=== PATIENT | male | born 1955 | race Caucasian/White ===

== ENCOUNTER 2019-04-05 06:35 | Outpatient (RCR) | payer MEDICARE, OTHER, SELFPAY ==
[2019-02-01 12:39] LABS: Basophils Percent Auto 0.4 % (0.2-1.2); Eosinophils Absolute Auto 0.1 K/mm3 (0-0.3); Eosinophils Percent Auto 1.7 % (0-4.4); Hematocrit 27.9 % (42.0-52.0); Hemoglobin 8.5 g/dL (14.0-18.0); Immature Granulocyte Absolute 0.04 K/mm3 (0.00-0.031); Immature Granulocyte Percent A 0.7 % (0-0.5); Lymphocytes Absolute Auto 0.48 K/mm3 (0.9-3.2); Lymphocytes Percent Auto 8.8 % (18.3-44.2); Mean Corpuscular HGB Conc 30.5 g/dl (32-36); Mean Corpuscular Hemoglobin 28.5 pg (26-34); Mean Corpuscular Volume 93.6 fl (80-100); Mean Platelet Volume 10.1 fl (7.4-10.4); Monocytes Absolute Auto 0.4 K/mm3 (0.1-0.6); Monocytes Percent Auto 8.1 % (2.6-8.5); Neutrophils Absolute Auto 4.4 K/mm3 (1.3-6.7); Neutrophils Percent Auto 80.3 % (45.5-73.1); Platelet Count Result 181 k/mm3 (150-375); Red Blood Count 2.98 M/mm3 (4.6-6.20); Red Cell Distribution Width 14.1 % (11.5-14.5); White Blood Count 5.4 K/mm3 (4.5-10.0)
[2019-02-01 12:56] LABS: Alanine Aminotransferase 11 U/L (4-50); Albumin Level 4.1 g/dL (3.5-5.1); Alkaline Phosphatase 63 U/L (38-126); Aspartate Amino Transferase 16 U/L (17-59); Bilirubin,Total 0.5 mg/dL (0.2-1.3); Blood Urea Nitrogen 27 mg/dL (9-20); Calcium 7.3 mg/dL (8.4-10.2); Carbon Dioxide 25 mmol/L (22-30); Chloride 102 mmol/L (98-107); Estimated Glomerular Filt Rate 32; Glucose 71 mg/dL (75-110); Sodium 139 mmol/L (137-145)
[2019-03-01 08:27] LABS: Basophils Percent Auto 0.3 % (0.2-1.2); Eosinophils Absolute Auto 0.1 K/mm3 (0-0.3); Eosinophils Percent Auto 1.7 % (0-4.4); Hematocrit 28.9 % (42.0-52.0); Hemoglobin 8.6 g/dL (14.0-18.0); Immature Granulocyte Absolute 0.06 K/mm3 (0.00-0.031); Lymphocytes Absolute Auto 0.51 K/mm3 (0.9-3.2); Lymphocytes Percent Auto 8.7 % (18.3-44.2); Mean Corpuscular HGB Conc 29.8 g/dl (32-36); Mean Corpuscular Hemoglobin 28.2 pg (26-34); Mean Corpuscular Volume 94.8 fl (80-100); Mean Platelet Volume 10.3 fl (7.4-10.4); Monocytes Absolute Auto 0.5 K/mm3 (0.1-0.6); Monocytes Percent Auto 7.8 % (2.6-8.5); Neutrophils Absolute Auto 4.7 K/mm3 (1.3-6.7); Neutrophils Percent Auto 80.5 % (45.5-73.1); Platelet Count Result 170 k/mm3 (150-375); Red Blood Count 3.05 M/mm3 (4.6-6.20); Red Cell Distribution Width 14.6 % (11.5-14.5); White Blood Count 5.9 K/mm3 (4.5-10.0)
[2019-03-01 08:46] LABS: Alanine Aminotransferase 11 U/L (4-50); Albumin Level 3.9 g/dL (3.5-5.1); Alkaline Phosphatase 68 U/L (38-126); Aspartate Amino Transferase 15 U/L (17-59); Bilirubin,Total 0.5 mg/dL (0.2-1.3); Blood Urea Nitrogen 29 mg/dL (9-20); Calcium 7.4 mg/dL (8.4-10.2); Carbon Dioxide 24 mmol/L (22-30); Chloride 104 mmol/L (98-107); Estimated Glomerular Filt Rate 26; Glucose 96 mg/dL (75-110); Sodium 140 mmol/L (137-145)
[2019-03-01 08:55] LABS: Anisocytosis 1+ (NORMAL); Platelet Estimate Adequate (Adequate); Tear Drop Cells 1+ (NORMAL)
[2019-04-05 08:11] LABS: Basophils Percent Auto 0.2 % (0.2-1.2); Eosinophils Absolute Auto 0.1 K/mm3 (0-0.3); Eosinophils Percent Auto 1.4 % (0-4.4); Hematocrit 28.3 % (42.0-52.0); Hemoglobin 8.6 g/dL (14.0-18.0); Immature Granulocyte Absolute 0.02 K/mm3 (0.00-0.031); Immature Granulocyte Percent A 0.5 % (0-0.5); Lymphocytes Absolute Auto 0.33 K/mm3 (0.9-3.2); Mean Corpuscular HGB Conc 30.4 g/dl (32-36); Mean Corpuscular Hemoglobin 27.9 pg (26-34); Mean Corpuscular Volume 91.9 fl (80-100); Mean Platelet Volume 10.4 fl (7.4-10.4); Monocytes Absolute Auto 0.4 K/mm3 (0.1-0.6); Monocytes Percent Auto 9.4 % (2.6-8.5); Neutrophils Absolute Auto 3.3 K/mm3 (1.3-6.7); Neutrophils Percent Auto 80.5 % (45.5-73.1); Platelet Count Result 165 k/mm3 (150-375); Red Blood Count 3.08 M/mm3 (4.6-6.20); Red Cell Distribution Width 14.6 % (11.5-14.5); White Blood Count 4.1 K/mm3 (4.5-10.0)
[2019-04-05 08:20] LABS: Alanine Aminotransferase 12 U/L (4-50); Albumin Level 3.9 g/dL (3.5-5.1); Alkaline Phosphatase 77 U/L (38-126); Aspartate Amino Transferase 18 U/L (17-59); Bilirubin,Total 0.6 mg/dL (0.2-1.3); Blood Urea Nitrogen 28 mg/dL (9-20); Calcium 7.8 mg/dL (8.4-10.2); Carbon Dioxide 22 mmol/L (22-30); Chloride 102 mmol/L (98-107); Estimated Glomerular Filt Rate 30; Glucose 94 mg/dL (75-110); Potassium 4.1 mmol/L (3.4-5.0); Sodium 138 mmol/L (137-145)
== END 2019-05-02 23:59 | disposition home or self-care (01) ==
LOC: ANHLAB 06:35
PROVIDERS: PCP Internal Medicine; Visit Provider Internal Medicine
DX: D50.9 Iron deficiency anemia, unspecified (principal); D59.1 Other autoimmune hemolytic anemias; D75.81 Myelofibrosis; N18.4 Chronic kidney disease, stage 4 (severe)
CPT/HCPCS: 36415; 80053; 85025

== ENCOUNTER 2019-05-26 06:47 | Outpatient (CLI) | payer MEDICARE, OTHER, SELFPAY ==
[2019-05-26 07:40] LABS: Basophils Percent Auto 0.2 % (0.2-1.2); Eosinophils Absolute Auto 0.1 K/mm3 (0-0.3); Eosinophils Percent Auto 2.1 % (0-4.4); Hematocrit 25.2 % (42.0-52.0); Hemoglobin 7.7 g/dL (14.0-18.0); Immature Granulocyte Absolute 0.04 K/mm3 (0.00-0.031); Immature Granulocyte Percent A 0.6 % (0-0.5); Lymphocytes Absolute Auto 0.24 K/mm3 (0.9-3.2); Lymphocytes Percent Auto 3.8 % (18.3-44.2); Mean Corpuscular HGB Conc 30.6 g/dl (32-36); Mean Corpuscular Hemoglobin 27.6 pg (26-34); Mean Corpuscular Volume 90.3 fl (80-100); Mean Platelet Volume 10.7 fl (7.4-10.4); Monocytes Absolute Auto 0.5 K/mm3 (0.1-0.6); Monocytes Percent Auto 8.4 % (2.6-8.5); Neutrophils Absolute Auto 5.4 K/mm3 (1.3-6.7); Neutrophils Percent Auto 84.9 % (45.5-73.1); Platelet Count Result 163 k/mm3 (150-375); Red Blood Count 2.79 M/mm3 (4.6-6.20); Red Cell Distribution Width 15.2 % (11.5-14.5); White Blood Count 6.3 K/mm3 (4.5-10.0)
[2019-05-26 08:23] LABS: Iron 19 ug/dL (49-181)
[2019-05-26 08:32] LABS: Percent Iron Saturation 10 % (20-50)
== END 2019-05-26 06:48 | disposition home or self-care (01) ==
PROVIDERS: PCP Internal Medicine; Visit Provider Internal Medicine
DX: D50.1 Sideropenic dysphagia (principal); N18.3 Chronic kidney disease, stage 3 (moderate); D59.1 Other autoimmune hemolytic anemias
CPT/HCPCS: 36415; 82728; 83540; 83550; 85025

== ENCOUNTER 2019-05-27 06:44 | Emergency (ER) | payer MEDICARE, OTHER, SELFPAY ==
--- NOTE | ~2019-05-27 | XR_ITS ---
EXAMINATION: XR foot RT min 3V DATE: 05/27/2019 07:41 INDICATION: Right foot pain. TECHNIQUE: 4 views of right foot were obtained. COMPARISON: None. FINDINGS: Bone alignment is normal. No fracture. There is mild osteoarthritis of first metatarsophala ngeal joint and many of the interphalangeal joints and midfoot joints. There are enthesophytes at the posterior and plantar aspects of calcaneal tuberosity. IMPRESSION: 1. Mild polyarticular osteoarthritis. Reviewed, dictated and finalized at location A. 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
[2019-05-27 06:47] VITALS: BP 179/66; PULSE 77; RESP 12; TEMP 36.5; O2SAT 97
--- NOTE | 2019-05-27 07:15 | ED.GENADULT ---
HPI - General Adult General Chief complaint: Extremity Injury, Lower Stated complaint: pain to rt leg & hands Time Seen by Provider: 05/27/19 06:58 History of Present Illness HPI narrative: Painful rash to the bilateral hands for the past 3-4 days. worsening in severity. He has not tried anything for the rash. He was started on azathioprine about 1 month ago. No other recent exposures or new medications. Additionally he has pain in the bottom of the left foot for the past few days. Worst in the heal and ball of the foot. Made worse by bearing weight. He has neuropathy, this pain is different. No injury. Related Data Home Medications Medication Instructions Recorded Confirmed atorvastatin DAILY 05/27/19 furosemide 40 mg DAILY 05/27/19 05/27/19 gabapentin 300 mg PO 05/27/19 labetalol 200 PO BID 05/27/19 pantoprazole 40 mg PO DAILY 05/27/19 05/27/19 potassium chloride [Klor-Con M20] meq PO 05/27/19 Allergies Allergy/AdvReac Type Severity Reaction Status Date / Time No Known Allergies Allergy Verified 05/27/19 06:51 Review of Systems Review of Systems: All systems reviewed & are unremarkable except as noted in HPI and below Constitutional: Constitutional: Denies chills, Denies fever(s) and Denies weakness Cardiovascular: Cardiovascular: Denies chest pain Respiratory: Respiratory: Denies dyspnea Gastrointestinal: Gastrointestinal: Denies abdominal pain and Denies nausea Musculoskeletal: Musculoskeletal: Denies back pain Integumentary/Breasts: Skin/Breast: Reports rash Neurologic: Denies numbness and Denies weakness Hematologic/Lymphatic: Hematologic/Lymphatic: Denies easy bleeding and Denies easy bruising PMF Past Medical History Medical History (Updated 05/27/19 @ 12:53 by Eddie Aguirre MD) CKD (chronic kidney disease) Diabetes HTN (hypertension) Neuropathy, peripheral Exam Const: General: no acute distress and alert Nutritional Appearance: obese Orientation/consciousness: patient oriented x3 HENMT: Head: normal to inspection Resp: Effort & Inspection: normal respiratory effort Auscultation: clear to auscultation bilaterally Cardio: Rate: regular rate Rhythm: regular rhythm GI: GI Palp: Yes Soft to palpation and No Tenderness to palpation present (GI) Skin: Other: red papular rash to the bilateral hands including palms and soles. Neuro: General: patient oriented x3 and moves all extremities Speech: normal speech Extrem: Other: Tenderness over the entire sole of left foot Course Vital Signs Vital signs: Vital Signs Temperature 36.5 C 05/27/19 06:47 Pulse Rate 77 05/27/19 06:47 Respiratory Rate 12 05/27/19 06:47 Blood Pressure 179/66 H 05/27/19 06:47 Pulse Oximetry 97 05/27/19 06:47 Temperature 36.5 C 05/27/19 06:47 Pulse Rate 77 05/27/19 06:47 Respiratory Rate 12 05/27/19 06:47 Blood Pressure 179/66 H 05/27/19 06:47 Pulse Oximetry 97 05/27/19 06:47 Medical Decision Making MDM Narrative Medical decision making narrative: Rash is unlikely to be cellulitis of shingles due to the bilateral distribution. The most likely culprit is his azathioprine, but there is no way to prove this definitively. Case discussed with Dr. Thomson. Will plan to d/c this medication and start on short course of prednisone. Medical Records Medical records reviewed: Yes I reviewed the patient's medical records. Vital Signs Vital Signs: Vital Signs Temperature 36.5 C 05/27/19 06:47 Pulse Rate 77 05/27/19 06:47 Respiratory Rate 12 05/27/19 06:47 Blood Pressure 179/66 H 05/27/19 06:47 Pulse Oximetry 97 05/27/19 06:47 Temperature 36.5 C 05/27/19 06:47 Pulse Rate 77 05/27/19 06:47 Respiratory Rate 12 05/27/19 06:47 Blood Pressure 179/66 H 05/27/19 06:47 Pulse Oximetry 97 05/27/19 06:47 Discharge Plan Discharge Clinical Impression: Plantar fasciitis of right foot, Drug-induced skin rash Patient Disposition: Home
[2019-05-27] MEDS: predniSONE 20 MG TABLET 40 MG PO (07:52)
[2019-05-27] MEDS: TRAMADOL HCL 50 MG TABLET PO (09:40)
== END 2019-05-27 09:45 | disposition home or self-care (01) ==
PROVIDERS: Emergency Provider Emergency Medicine; PCP Internal Medicine
DX: M72.2 Plantar fascial fibromatosis (principal); T45.1X5A Adverse effect of antineoplastic and immunosuppressive drugs, initial encounter; E11.22 Type 2 diabetes mellitus with diabetic chronic kidney disease; I12.9 Hypertensive chronic kidney disease with stage 1 through stage 4 chronic kidney disease, or unspecified chronic kidney disease; N18.9 Chronic kidney disease, unspecified; E11.42 Type 2 diabetes mellitus with diabetic polyneuropathy; L27.0 Generalized skin eruption due to drugs and medicaments taken internally
CPT/HCPCS: 73630; 99283; A9270; J7512

== ENCOUNTER 2019-06-04 06:44 | Outpatient (RCR) | payer MEDICARE, OTHER, SELFPAY ==
[2019-05-03 10:11] LABS: Basophils Percent Auto 0.2 % (0.2-1.2); Eosinophils Absolute Auto 0.1 K/mm3 (0-0.3); Eosinophils Percent Auto 1.3 % (0-4.4); Hematocrit 27.7 % (42.0-52.0); Hemoglobin 8.4 g/dL (14.0-18.0); Immature Granulocyte Absolute 0.05 K/mm3 (0.00-0.031); Immature Granulocyte Percent A 0.8 % (0-0.5); Lymphocytes Absolute Auto 0.37 K/mm3 (0.9-3.2); Lymphocytes Percent Auto 6.2 % (18.3-44.2); Mean Corpuscular HGB Conc 30.3 g/dl (32-36); Mean Corpuscular Hemoglobin 27.5 pg (26-34); Mean Corpuscular Volume 90.8 fl (80-100); Mean Platelet Volume 10.6 fl (7.4-10.4); Monocytes Absolute Auto 0.5 K/mm3 (0.1-0.6); Monocytes Percent Auto 7.6 % (2.6-8.5); Neutrophils Percent Auto 83.9 % (45.5-73.1); Platelet Count Result 158 k/mm3 (150-375); Red Blood Count 3.05 M/mm3 (4.6-6.20); Red Cell Distribution Width 14.7 % (11.5-14.5); White Blood Count 5.9 K/mm3 (4.5-10.0)
[2019-05-03 10:18] LABS: Creatinine Urine 157.6 mg/dL; Total Protein Urine Random 14 mg/dL
[2019-05-03 10:21] LABS: Albumin Level 4.1 g/dL (3.5-5.1); Blood Urea Nitrogen 28 mg/dL (9-20); Calcium 7.5 mg/dL (8.4-10.2); Carbon Dioxide 23 mmol/L (22-30); Chloride 103 mmol/L (98-107); Estimated Glomerular Filt Rate 27; Glucose 117 mg/dL (75-110); Phosphorus 2.9 mg/dL (2.5-4.5); Potassium 4.3 mmol/L (3.4-5.0); Sodium 139 mmol/L (137-145)
[2019-05-03 10:31] LABS: Parathyroid Intact 120.6 pg/mL (7.5-53.5)
[2019-05-03 10:35] LABS: Iron 32 ug/dL (49-181)
[2019-05-03 10:46] LABS: Percent Iron Saturation 14 % (20-50)
[2019-05-03 11:12] LABS: Vitamin D 25 Hydroxy 58.9 ng/mL
[2019-05-05 21:11] LABS: ANCA Screen Negative (Negative)
[2019-06-04 07:41] LABS: Basophils Percent Auto 0.2 % (0.2-1.2); Eosinophils Absolute Auto 0.1 K/mm3 (0-0.3); Eosinophils Percent Auto 2.4 % (0-4.4); Hematocrit 28.2 % (42.0-52.0); Hemoglobin 8.5 g/dL (14.0-18.0); Immature Granulocyte Absolute 0.25 K/mm3 (0.00-0.031); Immature Granulocyte Percent A 4.2 % (0-0.5); Lymphocytes Absolute Auto 0.44 K/mm3 (0.9-3.2); Lymphocytes Percent Auto 7.5 % (18.3-44.2); Mean Corpuscular HGB Conc 30.1 g/dl (32-36); Mean Corpuscular Hemoglobin 28.1 pg (26-34); Mean Corpuscular Volume 93.4 fl (80-100); Mean Platelet Volume 10.1 fl (7.4-10.4); Monocytes Absolute Auto 0.3 K/mm3 (0.1-0.6); Monocytes Percent Auto 5.4 % (2.6-8.5); Neutrophils Absolute Auto 4.7 K/mm3 (1.3-6.7); Neutrophils Percent Auto 80.3 % (45.5-73.1); Platelet Count Result 225 k/mm3 (150-375); Red Blood Count 3.02 M/mm3 (4.6-6.20); Red Cell Distribution Width 16.5 % (11.5-14.5); White Blood Count 5.9 K/mm3 (4.5-10.0)
[2019-06-04 07:58] LABS: Alanine Aminotransferase 21 U/L (4-50); Albumin Level 3.8 g/dL (3.5-5.1); Alkaline Phosphatase 70 U/L (38-126); Aspartate Amino Transferase 19 U/L (17-59); Bilirubin,Total 0.4 mg/dL (0.2-1.3); Blood Urea Nitrogen 55 mg/dL (9-20); Calcium 8.2 mg/dL (8.4-10.2); Carbon Dioxide 23 mmol/L (22-30); Chloride 109 mmol/L (98-107); Estimated Glomerular Filt Rate 26; Glucose 151 mg/dL (75-110); Phosphorus 3.6 mg/dL (2.5-4.5); Potassium 4.1 mmol/L (3.4-5.0); Sodium 140 mmol/L (137-145)
[2019-06-04 08:08] LABS: Parathyroid Intact 164.7 pg/mL (7.5-53.5)
[2019-06-04 08:20] LABS: Vitamin D 25 Hydroxy 80.2 ng/mL
[2019-06-04 08:32] LABS: Creatinine Urine 73.5 mg/dL; Total Protein Urine Random 11 mg/dL
[2019-06-06 19:58] LABS: ANCA Screen Negative (Negative)
== END 2019-08-01 23:59 | disposition home or self-care (01) ==
LOC: ANHLAB 06:44
PROVIDERS: PCP Internal Medicine; Visit Provider Internal Medicine
DX: N18.3 Chronic kidney disease, stage 3 (moderate) (principal); D50.1 Sideropenic dysphagia; D59.1 Other autoimmune hemolytic anemias
CPT/HCPCS: 36415; 80053; 80069; 82306; 82570; 82728; 83540; 83550; 83970; 84100; 84156; 85025; 86021

== ENCOUNTER 2019-06-30 10:41 | Outpatient (CLI) | payer MEDICARE, OTHER, SELFPAY ==
[2019-06-30 11:49] LABS: Hematocrit 30.2 % (42.0-52.0); Hemoglobin 9.2 g/dL (14.0-18.0); Mean Corpuscular HGB Conc 30.5 g/dl (32-36); Mean Corpuscular Hemoglobin 28.8 pg (26-34); Mean Corpuscular Volume 94.4 fl (80-100); Mean Platelet Volume 9.3 fl (7.4-10.4); Platelet Count Result 139 k/mm3 (150-375); Red Cell Distribution Width 18.4 % (11.5-14.5)
[2019-06-30 11:59] LABS: Creatinine Urine 15.4 mg/dL; Total Protein Urine Random 11 mg/dL
[2019-06-30 12:04] LABS: Blood Urea Nitrogen 41 mg/dL (9-20); Calcium 8.8 mg/dL (8.4-10.2); Carbon Dioxide 27 mmol/L (22-30); Chloride 101 mmol/L (98-107); Estimated Glomerular Filt Rate 29; Glucose 107 mg/dL (75-110); Phosphorus 4.1 mg/dL (2.5-4.5); Potassium 4.2 mmol/L (3.4-5.0); Sodium 137 mmol/L (137-145)
[2019-07-03 22:11] LABS: ANCA Screen Negative (Negative)
== END 2019-06-30 10:42 | disposition home or self-care (01) ==
PROVIDERS: PCP Internal Medicine; Visit Provider Internal Medicine Nephrology
DX: R76.0 Raised antibody titer (principal); N18.3 Chronic kidney disease, stage 3 (moderate)
CPT/HCPCS: 36415; 80069; 82570; 84156; 85027; 86021

== ENCOUNTER 2019-07-26 10:13 | Emergency (ER) | payer MEDICARE, OTHER, SELFPAY ==
--- NOTE | ~2019-07-26 | CT_ITS ---
EXAMINATION: CT abdomen pelvis wo con DATE: 07/26/2019 11:19 INDICATION: Left upper quadrant abdominal pain, mid back pain TECHNIQUE: Computed tomography (CT) of the abdomen and pelvis was performed without intravenous contr ast. Automated exposure control and iterative reconstruction technique were employed. Exam dose: 100 8.39 mGy-cm total exam DLP. COMPARISON: 10/06/2017 CT abdomen pelvis without IV contrast material FINDINGS: Previously reported embolization coils are again noted between the pancreas and duodenum. N o pancreatic mass lesion or calcification or ductal dilatation. No hepatic or splenic, adrenal or renal space-occupying mass lesion is detected. The gallbladder is u nremarkable, relatively contracted. No bile duct or pancreatic duct dilatation. No urinary tract calculus or hydroureteronephrosis. No renal mass lesion is evident on this limited n oncontrast examination. Extensive calcification of the abdominal aorta, iliac and femoral arteries; no evidence of aneurysm. There is prostate enlargement and mild calcification. There is moderate diffuse thickening of the uri nary bladder wall, likely due to bladder outlet obstruction associated with prostate enlargement. Diverticulosis of the colon; no CT evidence of diverticulitis. No bowel obstruction or intraperitonea l free air. No evidence of appendicitis. Small bilateral fat-containing inguinal hernias. Diffuse idiopathic skeletal hyperostosis of the thoracic and lumbar spine. Bilateral L5 pars interarticularis defects with borderline grade 1/grade 2 anterolisthesis at L5-S1. Bilateral hip osteoarthritis. IMPRESSION: Interval resolution of presumed pancreatic hematoma adjacent to embolization coils since 10/16/2017 Diverticulosis of the colon; no CT evidence of diverticulitis Prostate enlargement and calcification, diffuse bladder wall thickening Small bilateral fat-containing inguinal hernias Bilateral L5 pars interarticularis defects with associated borderline grade 1/grade 2 anterolisthesis at L5-S1 Reviewed, dictated and finalized at Location A. Reviewed, dictated and finalized at location A. IMPRESSION: Interval resolution of presumed pancreatic hematoma adjacent to em bolization coils since 10/16/2017 Diverticulosis of the colon; no CT evidence of diverticulitis Prostate enlargement and calcification, diffuse bladder wall thickening Small bilateral fat-containing inguinal hernias Bilateral L5 pars interarticularis defects with associated borderline grade 1/g rade 2 anterolisthesis at L5-S1
[2019-07-26 10:18] VITALS: BP 190/65; PULSE 68; RESP 14; TEMP 36.6; O2SAT 100
[2019-07-26 10:44] VITALS: PULSE 72; RESP 22
--- NOTE | 2019-07-26 10:51 | ED.GENADULT ---
HPI - General Adult General Chief complaint: Unspecified Stated complaint: flank pain Time Seen by Provider: 07/26/19 10:27 History of Present Illness HPI narrative: Patient is a 64-year-old male who presents ER with left-sided abdominal pain. Intermittent over the last month. Cramping in nature. No associated with eating or drinking. Was referred here by his stabilizing machine operator. No proximal-isms of nausea and vomiting related to this. He has not found any alleviating factors. Related Data Home Medications Medication Instructions Recorded Confirmed atorvastatin 20 mg PO DAILY 05/27/19 furosemide 40 mg DAILY 05/27/19 05/27/19 gabapentin 300 mg PO HS 05/27/19 labetalol 200 PO BID 05/27/19 pantoprazole 40 mg PO DAILY 05/27/19 05/27/19 potassium chloride [Klor-Con M20] 20 meq PO BID 05/27/19 apixaban [Eliquis] 5 mg PO BID 07/26/19 calcium carbonate [Calcium 600] 600 mg PO BID 07/26/19 ergocalciferol (vitamin D2) WEEKLY 07/26/19 [Vitamin D2] Allergies Allergy/AdvReac Type Severity Reaction Status Date / Time azathioprine Allergy Severe Swelling Verified 07/26/19 10:39 Review of Systems Review of Systems: All systems reviewed & are unremarkable except as noted in HPI and below Constitutional: Constitutional: Denies chills, Denies fever(s) and Denies weakness ENT: Denies nasal congestion and Denies sore throat Cardiovascular: Cardiovascular: Denies chest pain and Denies rapid heart rate Respiratory: Respiratory: Denies chest congestion, Denies cough and Denies dyspnea Gastrointestinal: Gastrointestinal: Reports abdominal pain, Reports bloating, Denies nausea and Denies vomiting PMFSH Past Medical History Medical History (Updated 07/26/19 @ 12:47 by Cayetano Bernal MD) CKD (chronic kidney disease) Diabetes HTN (hypertension) Neuropathy, peripheral Social History Social History Gender identity (if verbalized by the patient): Male Exam Narrative: Exam Narrative: GENERAL: Well-appearing, well-nourished, and in no acute distress. HEAD: Normocephalic, atraumatic. CHEST: Clear to auscultation. No respiratory distress. HEART: Regular rate and rhythm. Normal peripheral pulses. ABDOMEN: Soft, mild LUQ dicomfort w/o rebound, nondistended, normal active bowel sounds. EXTREMITIES: Normal range of motion. No edema. SKIN: Warm, dry, no rash. NEURO: Alert and oriented x3. PSYCH: Normal mood and affect. Course Course Emergency Course: Unremarkable work-up. Recommend follow-up with PCP. Blood pressure improved to 161/85 mmHg. Recommend Gas-X as it may be bloating. Vital Signs Vital signs: Vital Signs Temperature 97.9 F 07/26/19 10:18 Pulse Rate 68 07/26/19 10:18 Respiratory Rate 14 07/26/19 10:18 Blood Pressure 190/65 H 07/26/19 10:18 Pulse Oximetry 100 07/26/19 10:18 Temperature 97.9 F 07/26/19 10:18 Pulse Rate 72 07/26/19 10:44 Respiratory Rate 22 H 07/26/19 10:44 Blood Pressure 190/65 H 07/26/19 10:18 Pulse Oximetry 100 07/26/19 10:18 Medical Decision Making Vital Signs Vital Signs: Vital Signs Temperature 97.9 F 07/26/19 10:18 Pulse Rate 68 07/26/19 10:18 Respiratory Rate 14 07/26/19 10:18 Blood Pressure 190/65 H 07/26/19 10:18 Pulse Oximetry 100 07/26/19 10:18 Temperature 97.9 F 07/26/19 10:18 Pulse Rate 72 07/26/19 10:44 Respiratory Rate 22 H 07/26/19 10:44 Blood Pressure 190/65 H 07/26/19 10:18 Pulse Oximetry 100 07/26/19 10:18 Lab Data Result diagrams: 07/26/19 10:54 07/26/19 10:54 Labs: Lab Results 07/26/19 07/26/19 07/26/19 Range/Units 10:54 10:54 11:02 WBC 6.2 (4.5-10.0) K/mm3 RBC 3.50 L (4.6-6.20) M/mm3 Hgb 10.0 L (14.0-18.0) g/dL Hct 32.5 L (42.0-52.0) % MCV 92.9 (80-100) fl MCH 28.6 (26-34) pg MCHC 30.8 L (32-36) g/dl RDW 16.4 H (11.5-14.5) % Plt Count 179 (150-375
[2019-07-26 11:05] LABS: Basophils Percent Auto 0.3 % (0.2-1.2); Eosinophils Absolute Auto 0.1 K/mm3 (0-0.3); Eosinophils Percent Auto 1.6 % (0-4.4); Hematocrit 32.5 % (42.0-52.0); Immature Granulocyte Absolute 0.04 K/mm3 (0.00-0.031); Immature Granulocyte Percent A 0.6 % (0-0.5); Lymphocytes Absolute Auto 0.66 K/mm3 (0.9-3.2); Lymphocytes Percent Auto 10.7 % (18.3-44.2); Mean Corpuscular HGB Conc 30.8 g/dl (32-36); Mean Corpuscular Hemoglobin 28.6 pg (26-34); Mean Corpuscular Volume 92.9 fl (80-100); Mean Platelet Volume 10.3 fl (7.4-10.4); Monocytes Absolute Auto 0.3 K/mm3 (0.1-0.6); Monocytes Percent Auto 5.5 % (2.6-8.5); Neutrophils Percent Auto 81.3 % (45.5-73.1); Platelet Count Result 179 k/mm3 (150-375); Red Cell Distribution Width 16.4 % (11.5-14.5); White Blood Count 6.2 K/mm3 (4.5-10.0)
[2019-07-26 11:10] LABS: Add Urine Microscopic? NO; Appearance Urine Clear (Clear); Bilirubin Urine Negative (Negative); Blood Urine Negative (Negative); Color Urine Straw (Yellow); Glucose Urine UA Negative (Negative); Ketones Urine Negative (Negative); Leukocyte Esterase Ur Negative LEU/UL (Negative); Nitrate Urine Negative (Negative); Protein Urine Negative (Negative); Specific Grav Ur 1.011 (1.001-1.035); Urobilinogen Urine Negative mg/dL (<2.0)
[2019-07-26 11:24] LABS: Alanine Aminotransferase 13 U/L (4-50); Albumin Level 4.3 g/dL (3.5-5.1); Alkaline Phosphatase 82 U/L (38-126); Aspartate Amino Transferase 19 U/L (17-59); Bilirubin,Total 0.7 mg/dL (0.2-1.3); Blood Urea Nitrogen 31 mg/dL (9-20); Carbon Dioxide 24 mmol/L (22-30); Chloride 106 mmol/L (98-107); Estimated CRCL calculation 32 ml/min; Estimated Glomerular Filt Rate 27; Glucose 125 mg/dL (75-110); Lipase 128 U/L (23-300); Potassium 4.2 mmol/L (3.4-5.0); Sodium 138 mmol/L (137-145)
[2019-07-26 12:57] VITALS: BP 122/75; PULSE 72; RESP 16; O2SAT 100
== END 2019-07-26 12:58 | disposition home or self-care (01) ==
PROVIDERS: Emergency Provider Emergency Medicine; PCP Internal Medicine
DX: R10.12 Left upper quadrant pain (principal); G89.29 Other chronic pain; E11.22 Type 2 diabetes mellitus with diabetic chronic kidney disease; I12.9 Hypertensive chronic kidney disease with stage 1 through stage 4 chronic kidney disease, or unspecified chronic kidney disease; N18.9 Chronic kidney disease, unspecified; Z79.01 Long term (current) use of anticoagulants; E11.42 Type 2 diabetes mellitus with diabetic polyneuropathy
CPT/HCPCS: 36415; 74176; 80053; 81003; 83690; 85025; 99284

== ENCOUNTER 2019-11-16 06:48 | Outpatient (CLI) | payer MEDICARE, OTHER, SELFPAY ==
[2019-11-16 07:52] LABS: Hematocrit 30.2 % (42.0-52.0); Hemoglobin 9.6 g/dL (14.0-18.0); Mean Corpuscular HGB Conc 31.8 g/dl (32-36); Mean Corpuscular Hemoglobin 28.2 pg (26-34); Mean Corpuscular Volume 88.8 fl (80-100); Mean Platelet Volume 10.1 fl (7.4-10.4); Platelet Count Result 159 k/mm3 (150-375); Red Cell Distribution Width 16.1 % (11.5-14.5); White Blood Count 5.5 K/mm3 (4.5-10.0)
[2019-11-16 08:04] LABS: Total Protein Urine Random 14 mg/dL
[2019-11-16 08:04] LABS: Anion Gap 6 mmol/L (8-16); Blood Urea Nitrogen 37 mg/dL (9-20); Calcium 8.8 mg/dL (8.4-10.2); Carbon Dioxide 22 mmol/L (22-30); Chloride 108 mmol/L (98-107); Estimated Glomerular Filt Rate 30; Glucose 110 mg/dL (75-110); Phosphorus 3.3 mg/dL (2.5-4.5); Potassium 4.5 mmol/L (3.4-5.0); Sodium 136 mmol/L (137-145)
[2019-11-16 08:16] LABS: Parathyroid Intact 67.5 pg/mL (7.5-53.5)
[2019-11-16 08:55] LABS: Vitamin D 25 Hydroxy 61.5 ng/mL
[2019-11-21 09:40] LABS: ANCA Screen Negative (Negative)
== END 2019-11-16 06:49 | disposition home or self-care (01) ==
PROVIDERS: PCP Internal Medicine; Visit Provider Internal Medicine Nephrology
DX: N18.4 Chronic kidney disease, stage 4 (severe) (principal)
CPT/HCPCS: 36415; 80069; 82306; 82570; 83970; 84156; 85027; 86021

== ENCOUNTER 2019-11-18 13:05 | Outpatient (CLI) | payer MEDICARE, OTHER, SELFPAY ==
--- NOTE | ~2019-11-18 | XR_ITS ---
EXAMINATION: XR ribs RT 2V w CXR 2V INDICATION: Right rib pain TECHNIQUE: Frontal and lateral views of the chest and 3 views of the right ribs were obtained. COMPARISON: 05/04/2017 FINDINGS: The lungs are free of acute opacities. There is no pleural effusion or pneumothorax. The ca rdiomediastinal silhouette is normal. There is moderate thoracic spondylosis. No displaced rib fractu re is identified. There appears to be an old fracture at the lateral aspect of the second rib. Emboli zation coils are noted in the visualized upper abdomen. IMPRESSION: 1. No acute cardiopulmonary abnormality or evidence of acute displaced rib fracture. Reviewed, dictated and finalized at location A. IMPRESSION: 1. No acute cardiopulmonary abnormality or evidence of acute displaced rib frac ture.
== END 2019-11-18 13:06 | disposition home or self-care (01) ==
PROVIDERS: PCP Internal Medicine; Visit Provider Internal Medicine Nephrology
DX: R07.81 Pleurodynia (principal)
CPT/HCPCS: 71046; 71100

== ENCOUNTER 2020-01-03 06:51 | Outpatient (CLI) | payer MEDICARE, OTHER, SELFPAY ==
[2020-01-03 07:37] LABS: Hemoglobin 9.3 g/dL (14.0-18.0); Mean Corpuscular HGB Conc 32.1 g/dl (32-36); Mean Corpuscular Volume 87.3 fl (80-100); Mean Platelet Volume 9.6 fl (7.4-10.4); Platelet Count Result 151 k/mm3 (150-375); Red Blood Count 3.32 M/mm3 (4.6-6.20); Red Cell Distribution Width 15.3 % (11.5-14.5); White Blood Count 5.5 K/mm3 (4.5-10.0)
[2020-01-03 07:48] LABS: Albumin Level 3.8 g/dL (3.5-5.1); Anion Gap 7 mmol/L (8-16); Blood Urea Nitrogen 37 mg/dL (9-20); Calcium 8.8 mg/dL (8.4-10.2); Carbon Dioxide 26 mmol/L (22-30); Chloride 106 mmol/L (98-107); Cholesterol 135 mg/dL (0-200); Estimated Glomerular Filt Rate 30; Glucose 97 mg/dL (75-110); HDL Direct 30 mg/dL; Phosphorus 3.5 mg/dL (2.5-4.5); Potassium 4.9 mmol/L (3.4-5.0); Sodium 139 mmol/L (137-145); Total Protein Urine Random 12 mg/dL; Triglycerides 147 mg/dL (<150)
[2020-01-03 07:59] LABS: LDL Cholesterol Direct 83 mg/dL
[2020-01-03 08:17] LABS: Parathyroid Intact 105.3 pg/mL (7.5-53.5)
[2020-01-03 08:19] LABS: Prostate Specific Antigen 1.6 ng/mL (< OR = 4.0)
[2020-01-08 07:41] LABS: Testosterone Free 60.6 pg/mL (35.0-155.0); Testosterone Total 333 ng/dL (250-1100)
[2020-01-09 20:07] LABS: ANCA Screen Negative (Negative)
== END 2020-01-03 06:52 | disposition home or self-care (01) ==
PROVIDERS: PCP Internal Medicine; Referring Provider Internal Medicine Nephrology; Visit Provider Internal Medicine
DX: E78.6 Lipoprotein deficiency (principal); R94.7 Abnormal results of other endocrine function studies; N18.4 Chronic kidney disease, stage 4 (severe); Z12.5 Encounter for screening for malignant neoplasm of prostate
CPT/HCPCS: 36415; 80053; 80061; 80069; 81050; 82306; 82565; 83970; 84153; 84156; 84402; 84403; 85025; 85027; 86021; G0103

== ENCOUNTER 2020-01-03 14:52 | Outpatient (RCR) | payer MEDICARE, OTHER, SELFPAY ==
[2020-01-03 15:57] LABS: Basophils Percent Auto 0.4 % (0.2-1.2); Eosinophils Absolute Auto 0.1 K/mm3 (0-0.3); Eosinophils Percent Auto 2.1 % (0-4.4); Hematocrit 27.7 % (42.0-52.0); Immature Granulocyte Absolute 0.02 K/mm3 (0.00-0.031); Immature Granulocyte Percent A 0.4 % (0-0.5); Lymphocytes Absolute Auto 0.75 K/mm3 (0.9-3.2); Lymphocytes Percent Auto 15.5 % (18.3-44.2); Mean Corpuscular HGB Conc 32.5 g/dl (32-36); Mean Corpuscular Hemoglobin 28.4 pg (26-34); Mean Corpuscular Volume 87.4 fl (80-100); Mean Platelet Volume 9.7 fl (7.4-10.4); Monocytes Absolute Auto 0.3 K/mm3 (0.1-0.6); Monocytes Percent Auto 6.8 % (2.6-8.5); Neutrophils Absolute Auto 3.6 K/mm3 (1.3-6.7); Neutrophils Percent Auto 74.8 % (45.5-73.1); Platelet Count Result 154 k/mm3 (150-375); Red Blood Count 3.17 M/mm3 (4.6-6.20); Red Cell Distribution Width 15.2 % (11.5-14.5); White Blood Count 4.8 K/mm3 (4.5-10.0)
[2020-01-03 16:08] LABS: Alanine Aminotransferase 17 U/L (4-50); Alkaline Phosphatase 73 U/L (38-126); Anion Gap 6 mmol/L (8-16); Aspartate Amino Transferase 19 U/L (17-59); Bilirubin,Total 0.6 mg/dL (0.2-1.3); Blood Urea Nitrogen 35 mg/dL (9-20); Calcium 9.2 mg/dL (8.4-10.2); Carbon Dioxide 31 mmol/L (22-30); Chloride 103 mmol/L (98-107); Estimated Glomerular Filt Rate 29; Glucose 86 mg/dL (75-110); Sodium 140 mmol/L (137-145)
== END 2020-04-02 23:59 | disposition home or self-care (01) ==
LOC: ANHLAB 14:52
PROVIDERS: PCP Internal Medicine; Visit Provider Internal Medicine
DX: D50.9 Iron deficiency anemia, unspecified (principal); D75.81 Myelofibrosis
CPT/HCPCS: 36415; 80053; 85025

== ENCOUNTER 2020-03-07 06:49 | Outpatient (CLI) | payer MEDICARE, OTHER, SELFPAY ==
[2020-03-07 07:57] LABS: Hematocrit 32.4 % (42.0-52.0); Hemoglobin 10.4 g/dL (14.0-18.0); Mean Corpuscular HGB Conc 32.1 g/dl (32-36); Mean Corpuscular Hemoglobin 28.2 pg (26-34); Mean Corpuscular Volume 87.8 fl (80-100); Mean Platelet Volume 9.9 fl (7.4-10.4); Platelet Count Result 164 k/mm3 (150-375); Red Blood Count 3.69 M/mm3 (4.6-6.20); Red Cell Distribution Width 15.3 % (11.5-14.5); White Blood Count 5.6 K/mm3 (4.5-10.0)
[2020-03-07 08:10] LABS: Albumin Level 4.2 g/dL (3.5-5.1); Anion Gap 10 mmol/L (8-16); Blood Urea Nitrogen 32 mg/dL (9-20); Carbon Dioxide 24 mmol/L (22-30); Chloride 104 mmol/L (98-107); Estimated Glomerular Filt Rate 30; Glucose 91 mg/dL (75-110); Phosphorus 3.1 mg/dL (2.5-4.5); Potassium 4.4 mmol/L (3.4-5.0); Sodium 138 mmol/L (137-145)
[2020-03-07 08:11] LABS: Creatinine Urine 85.8 mg/dL; Total Protein Urine Random 20 mg/dL; Ur Ttl Prot Creatinine Ratio 0.23 mg/mg (0-0.20)
[2020-03-07 08:20] LABS: Parathyroid Intact 103.3 pg/mL (7.5-53.5)
[2020-03-07 08:42] LABS: Vitamin D 25 Hydroxy 69.2 ng/mL
[2020-03-10 11:14] LABS: ANCA Screen Negative (Negative)
== END 2020-03-07 06:50 | disposition home or self-care (01) ==
PROVIDERS: PCP Internal Medicine; Referring Provider Internal Medicine; Visit Provider Internal Medicine Nephrology
DX: N18.4 Chronic kidney disease, stage 4 (severe) (principal)
CPT/HCPCS: 36415; 80069; 82306; 82570; 83970; 84156; 85027; 86021

== ENCOUNTER 2020-03-21 09:04 | Outpatient (CLI) | payer MEDICARE, OTHER, SELFPAY ==
--- NOTE | ~2020-03-21 | XR_ITS ---
EXAMINATION: XR thoracic spine 2V EXAM DATE: 03/21/2020 09:35 INDICATION: Dorsalgia. No known recent injury. TECHNIQUE: Frontal and lateral projections of the thoracic spine as well as lateral swimmers projecti on of the upper thoracic spine for interpretation. There is no prior study for comparison. FINDINGS: Patient has diffuse idiopathic skeletal hyperostosis (DISH). Mild mid and lower thoracic d isc disease. Mild thoracic facet arthropathy. There are no bony erosions identified. Paraspinal soft tissue is unremarkable. There is aortic arteriosclerosis. IMPRESSION: Mild thoracic spondylosis. DISH. Reviewed, dictated and finalized at location B. 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
== END 2020-03-21 09:05 | disposition home or self-care (01) ==
LOC: ANHIMG 09:07
PROVIDERS: PCP Internal Medicine; Visit Provider Internal Medicine
DX: M54.9 Dorsalgia, unspecified (principal); M47.814 Spondylosis without myelopathy or radiculopathy, thoracic region; M48.14 Ankylosing hyperostosis [Forestier], thoracic region
CPT/HCPCS: 72070

== ENCOUNTER 2020-05-09 07:02 | Outpatient (CLI) | payer MEDICARE, OTHER, SELFPAY ==
[2020-05-09 07:48] LABS: Basophils Percent Auto 0.3 % (0.2-1.2); Eosinophils Absolute Auto 0.1 K/mm3 (0-0.3); Eosinophils Percent Auto 2.4 % (0-4.4); Hematocrit 32.5 % (42.0-52.0); Hemoglobin 10.3 g/dL (14.0-18.0); Immature Granulocyte Absolute 0.03 K/mm3 (0.00-0.031); Immature Granulocyte Percent A 0.5 % (0-0.5); Immature Reticulocyte Fraction 14.7 % (3.0-15.9); Lymphocytes Absolute Auto 0.62 K/mm3 (0.9-3.2); Lymphocytes Percent Auto 10.4 % (18.3-44.2); Mean Corpuscular HGB Conc 31.7 g/dl (32-36); Mean Corpuscular Hemoglobin 27.8 pg (26-34); Mean Corpuscular Volume 87.6 fl (80-100); Mean Platelet Volume 9.7 fl (7.4-10.4); Monocytes Absolute Auto 0.5 K/mm3 (0.1-0.6); Monocytes Percent Auto 8.4 % (2.6-8.5); Neutrophils Absolute Auto 4.6 K/mm3 (1.3-6.7); Platelet Count Result 143 k/mm3 (150-375); Red Blood Count 3.71 M/mm3 (4.6-6.20); Red Cell Distribution Width 15.5 % (11.5-14.5); Reticulocyte Hemoglobin Conten 31.8 pg (28.2-35.7); Reticulocyte Percent 1.45 % (0.7-4.3); Reticulocytes Absolute 0.05 B/L (32.2-175.7)
[2020-05-09 08:01] LABS: Alanine Aminotransferase 21 U/L (4-50); Albumin Level 4.2 g/dL (3.5-5.1); Alkaline Phosphatase 75 U/L (38-126); Anion Gap 5 mmol/L (8-16); Aspartate Amino Transferase 25 U/L (17-59); Bilirubin,Total 0.7 mg/dL (0.2-1.3); Blood Urea Nitrogen 35 mg/dL (9-20); Calcium 9.3 mg/dL (8.4-10.2); Carbon Dioxide 29 mmol/L (22-30); Chloride 104 mmol/L (98-107); Estimated Glomerular Filt Rate 26; Glucose 91 mg/dL (75-110); Lactate Dehydrogenase 415 U/L (313-618); Sodium 138 mmol/L (137-145)
[2020-05-09 08:42] LABS: Albumin Level 4.2 g/dL (3.5-5.1); Anion Gap 6 mmol/L (8-16); Blood Urea Nitrogen 36 mg/dL (9-20); Calcium 9.3 mg/dL (8.4-10.2); Carbon Dioxide 29 mmol/L (22-30); Chloride 104 mmol/L (98-107); Estimated Glomerular Filt Rate 26; Glucose 92 mg/dL (75-110); Phosphorus 3.4 mg/dL (2.5-4.5); Sodium 139 mmol/L (137-145)
[2020-05-09 08:43] LABS: Creatinine Urine 78.3 mg/dL; Total Protein Urine Random 16 mg/dL
[2020-05-09 08:59] LABS: Iron 57 ug/dL (49-181)
[2020-05-09 09:08] LABS: Percent Iron Saturation 21 % (20-50)
[2020-05-14 13:34] LABS: ANCA Screen Negative (Negative)
== END 2020-05-09 07:03 | disposition home or self-care (01) ==
PROVIDERS: PCP Internal Medicine; Referring Provider Internal Medicine Nephrology; Visit Provider Internal Medicine
DX: D75.81 Myelofibrosis (principal); D50.1 Sideropenic dysphagia; N18.31 Chronic kidney disease, stage 3a; N05.9 Unspecified nephritic syndrome with unspecified morphologic changes
CPT/HCPCS: 36415; 80053; 80069; 82570; 82728; 83540; 83550; 83615; 83970; 84156; 85025; 85046; 86021

== ENCOUNTER 2020-05-22 12:54 | Outpatient (CLI) | payer MEDICARE, OTHER, SELFPAY ==
--- NOTE | 2020-05-23 15:48 | WPDPFTINT ---
PFT Interpretation This is a pulmonary function test with spirometry, plethysmography and diffusing capacity. The test was performed and results interpreted in accordance with the 2019 and 2005 ATS/ERS Task Force guidelines respectively using the Raghavendra/Radha reference equations. Findings: Spirometry: The contour the inspiratory and expiratory flow tracing are normal. The FVC is 2.95 L, 76% predicted. The FEV1 is 2.47 L, 92% predicted. The FEV1: FVC ratio is 84%. Plethysmography: The total lung capacity is 3.53 L, 63% predicted. The functional residual capacity is 1.17 L, 42% predicted. The residual volume is 0.57 L, 26% predicted. Diffusion capacity: The absolute diffusion capacity is 9.9, 43% predicted. The diffusing capacity corrected for alveolar volume is 2.58, 70% predicted. Impression: There is a mild restrictive ventilatory abnormality with a normal FEV1. The spirometry is normal without evidence of an obstructive abnormality. The absolute diffusing capacity is moderately decreased and normalizes when corrected for alveolar volume. There are no prior studies for comparison
== END 2020-05-22 12:55 | disposition home or self-care (01) ==
PROVIDERS: Family Provider Internal Medicine; PCP Internal Medicine; Visit Provider Internal Medicine
DX: J43.9 Emphysema, unspecified (principal)
CPT/HCPCS: 94375; 94726; 94729

== ENCOUNTER → 2020-06-05 00:33 | Outpatient (CLI) | payer MEDICARE, OTHER, SELFPAY ==
[2020-06-05 18:03] LABS: SARS-CoV-2 RNA PCR Negative
== END ==
PROVIDERS: PCP Internal Medicine; Visit Provider Internal Medicine Cardiovascular Disease
DX: Z01.812 Encounter for preprocedural laboratory examination (principal); Z20.822 Contact with and (suspected) exposure to COVID-19
CPT/HCPCS: C9803; U0003; U0005

== ENCOUNTER 2020-06-05 06:38 | Outpatient (CLI) | payer MEDICARE, OTHER, SELFPAY ==
[2020-06-05 07:34] LABS: Creatinine Urine 96.6 mg/dL; Total Protein Urine Random 13 mg/dL; Ur Ttl Prot Creatinine Ratio 0.13 mg/mg (0-0.20)
[2020-06-05 07:47] LABS: Albumin Level 3.8 g/dL (3.5-5.1); Anion Gap 6 mmol/L (8-16); Blood Urea Nitrogen 34 mg/dL (9-20); Calcium 7.8 mg/dL (8.4-10.2); Carbon Dioxide 26 mmol/L (22-30); Chloride 105 mmol/L (98-107); Estimated Glomerular Filt Rate 29; Glucose 86 mg/dL (75-110); Phosphorus 3.2 mg/dL (2.5-4.5); Sodium 137 mmol/L (137-145)
== END 2020-06-05 06:39 | disposition home or self-care (01) ==
PROVIDERS: PCP Internal Medicine; Visit Provider Internal Medicine Nephrology
DX: N18.4 Chronic kidney disease, stage 4 (severe) (principal)
CPT/HCPCS: 36415; 80069; 82570; 84156; C9803; U0003; U0005

== ENCOUNTER 2020-06-08 01:13 | Day surgery (SDC) | payer MEDICARE, OTHER, SELFPAY ==
[2020-06-07 13:39] VITALS: BMI 34.2
[2020-06-08] VITALS (12 sets, daily range): BP systolic 126–162; BP diastolic 50–76; PULSE 58–82; RESP 14–20; TEMP 36.3–36.7; O2SAT 97–100
--- NOTE | 2020-06-08 07:00 | SUR.PREOP ---
ARRIVES TO [facility] 5 W/ AT SIDE FOR SCHEDULED LHC W/ DR. PIERRE. ARRIVES EARLY FOR IV FLUIDS PRE PROCEDURE. ORIENTED TO ROOM, PLAN OF CARE, PROCEDURE. QUESTIONS ANSWERED. IV STARTED, VS OBTAINED, CONSENT SIGNED, SKIN PREPPED. IVF'S OF NS AT 150ML/HR STARTED VIA PUMP. WILL CONTINUE TO MONITOR.
[2020-06-08] MEDS: SODIUM CHLORIDE 0.9% IV 1,000 ML 150 ML IV CONT (07:30)
[2020-06-08 07:35] LABS: Basophils Percent Auto 0.2 % (0.2-1.2); Eosinophils Absolute Auto 0.1 K/mm3 (0-0.3); Eosinophils Percent Auto 2.3 % (0-4.4); Hematocrit 31.2 % (42.0-52.0); Hemoglobin 9.9 g/dL (14.0-18.0); Immature Granulocyte Absolute 0.02 K/mm3 (0.00-0.031); Immature Granulocyte Percent A 0.4 % (0-0.5); Lymphocytes Percent Auto 9.5 % (18.3-44.2); Mean Corpuscular HGB Conc 31.7 g/dl (32-36); Mean Corpuscular Hemoglobin 28.2 pg (26-34); Mean Corpuscular Volume 88.9 fl (80-100); Mean Platelet Volume 9.6 fl (7.4-10.4); Monocytes Absolute Auto 0.4 K/mm3 (0.1-0.6); Monocytes Percent Auto 8.1 % (2.6-8.5); Neutrophils Absolute Auto 4.2 K/mm3 (1.3-6.7); Neutrophils Percent Auto 79.5 % (45.5-73.1); Platelet Count Result 150 k/mm3 (150-375); Red Blood Count 3.51 M/mm3 (4.6-6.20); Red Cell Distribution Width 15.6 % (11.5-14.5); White Blood Count 5.3 K/mm3 (4.5-10.0)
[2020-06-08 07:45] LABS: Prothrombin Time 13.6 Seconds (11.1-14.7)
[2020-06-08 07:46] LABS: Anion Gap 7 mmol/L (8-16); Blood Urea Nitrogen 26 mg/dL (9-20); Carbon Dioxide 25 mmol/L (22-30); Chloride 107 mmol/L (98-107); Estimated CRCL calculation 33 ml/min; Estimated Glomerular Filt Rate 30; Glucose 86 mg/dL (75-110); Potassium 4.5 mmol/L (3.4-5.0); Sodium 139 mmol/L (137-145)
--- NOTE | 2020-06-08 11:10 | SUR.PREOP ---
NS AT 150ML/HR X 3 HOURS COMPLETE AT THIS TIME.
--- NOTE | 2020-06-08 11:53 | WPDHPUPDATE1 ---
History and Physical Update Update Date/Time: 06/08/20 11:53 History and Physical has been reviewed, including an updated exam of the patient. There are NO changes in the patient's condition. Risks, benefits, and alternatives have been discussed and questions answered. Patient agrees to proceed with procedure.
--- NOTE | 2020-06-08 11:53 | WPDMODSED ---
Moderate Sedation Note-Pt Data Patient Data Allergies Allergy/AdvReac Type Severity Reaction Status Date / Time No Known Allergies Allergy Verified 06/07/20 13:38 Home Medications Medication Instructions Recorded Confirmed Type atorvastatin 20 mg PO DAILY 05/27/19 06/07/20 History furosemide 40 mg DAILY 05/27/19 06/07/20 History gabapentin 300 mg PO HS 05/27/19 06/07/20 History labetalol 200 mg PO BID 05/27/19 06/07/20 History potassium chloride [Klor-Con M20] 20 meq PO BID 05/27/19 06/07/20 History apixaban [Eliquis] 5 mg PO BID 07/26/19 06/07/20 History ergocalciferol (vitamin D2) 1 mcg WEEKLY 07/26/19 06/07/20 History [Vitamin D2] tramadol 50 mg PO BID PRN 06/05/20 06/07/20 History Sedation/Anesthesia: No previous sedation/anesthesia problems (including family history). PMFSH Past Medical History Medical History Chronic disease anemia CKD (chronic kidney disease) Diabetes HTN (hypertension) Neuropathy, peripheral Social History Social History Years smoked: 30 Smoking status: Former smoker Tobacco type: cigarettes Smoking end date: 03/31/11 Alcohol intake: never Substance use: never Substance use type: does not use Living arrangements: with family Gender identity (if verbalized by the patient): Male Sexual Orientation (if Verbalized by the Patient): Straight or Heterosexual Spiritual care concerns: No Mod Sed Physical Exam Physical Exam Pre Procedural Exam: Normal: Appearance, Eyes, Ears, Nose, Neck, Throat, Airway, Lungs, Heart Size, Heart Rate, Heart Rhythm, Neuro Exam, Abdomen, Liver, Kidneys, Spleen, Breasts, Genitalia, Extremities and Skin Hours since solid foods: 8 Hours since liquid intake: 8 Internal Medicine - PN: Obj Da Vital Signs Vital Signs: Vital Signs - 24 hr 06/08/20 07:15 Temperature 36.6 C Pulse Rate 58 L Respiratory Rate 20 Blood Pressure 161/65 H Pulse Oximetry 98 Labs CBC & Chem 7: 06/08/20 07:28 06/08/20 07:28 Labs: Laboratory Results - last 24 hr 06/08/20 06/08/20 06/08/20 07:28 07:28 07:28 WBC 5.3 RBC 3.51 L Hgb 9.9 L Hct 31.2 L MCV 88.9 MCH 28.2 MCHC 31.7 L RDW 15.6 H Plt Count 150 MPV 9.6 Immature Gran % (Auto) 0.4 Neut % (Auto) 79.5 H Lymph % (Auto) 9.5 L [place] % (Auto) 8.1 Eos % (Auto) 2.3 Baso % (Auto) 0.2 Lymph # (Auto) 0.50 L [place] # (Auto) 0.4 Eos # (Auto) 0.1 Baso # (Auto) 0.0 Abs Immat Gran (auto) 0.02 Absolute Neuts (auto) 4.2 Absolute Nucleated RBC 0.0 Nucleated RBC % 0.0 PT 13.6 INR 1.0 Sodium 139 Potassium 4.5 Chloride 107 Carbon Dioxide 25 Anion Gap 7 L BUN 26 H Creatinine 2.20 H Estim Creat Clear Calc 33 Estimated GFR 30 L Glucose 86 Calcium 8.0 L ASA Classification/Sedation ASA Classification/Sedation ASA Class: I Emergent: No Risks: Risks, benefits and alternatives explained and patient/family accepted plan for sedation. Patient re-evaluated immediately prior to sedation.
--- NOTE | 2020-06-08 11:54 | WPDCARDPROC ---
Cardiac Cath Procedure Note Date of procedure:: 06/08/20 Performing physician:: Kathrin Austin MD date of service 06/08/2020- Indication:: chest pain Brief clinical history:: this 65-year-old patient with past medical history for glomerular nephritis with GFR 30, longstanding history of tobacco use and quit use 8 years ago, obesity, DVT on Eliquis, hypertension, hyperlipidemia, previous history of GI bleeding 2018. He was evaluated for chest pain by primary care and apparently stress test was ordered at [facility]. It was reported that was normal. He continues to have chest pain on exertion relieved by Rest. Due to continuing symptoms we decided to do cardiac catheterization. He will undergo also EGD on June 22, 2020. He reports that 7 of his brothers had stents and heart attacks and his dad at age 63 who had coronary artery disease as well. Procedure Procedure performed:: 1-Moderate sedation that started at 1156am and ended at 1230 pm using 4 mg of Versed and 75mcg fentanyl. The registered nurse was wojciech carvalho. 2-Selective left and right coronary angiogram. 3-Left heart catheterization with measurement of LVEDP and measurement of gradient across aortic valve. 4-Right common femoral arterial angiogram. Sedation/Medication given:: Moderate sedation. Access site:: Right common femoral artery. Estimated blood loss:: 10cc Procedure note:: After informed consent patient was brought in to microbiology lab analyst with the was draped and prepped in usual manner. Moderate sedation was given and the right groin was infiltrated using 1% lidocaine. Five Afghan sheath was obtained using micropuncture needle and the modified Seldinger technique.We had to use stiff Amplatzer wire. Selective left coronary angiogram was done using JL4 catheter with the tip of the catheter placed in the left main coronary artery. Selective right coronary angiogram was done using JR4 catheter with the tip of the catheter placed to the right coronary artery. After that 5 Afghan pigtail catheter was advanced across the aortic valve into the left ventricle with measurement of LVEDP and measurement of gradient across aortic valve. Right common femoral arterial angiogram was done. Findings:: 1- left coronary artery is a large artery that divides into large LAD, large circumflex artery. and large ramus intermedius. distal left main 50-60%. 2- left anterior descending artery is a large artery that runs and wraps around the apex. in one view the cranial views it appears that the ostial LAD is about 90% however on the caudal views it does not appear that there is significant disease in the ostial LAD. 3- left circumflex artery is a large artery And has ostial 99%. distal disease 70%. 4- Ramus intermedius ostial lesion 99% 4- right coronary artery is large artery and dominant and has mid 99%. there is diffuse disease throughout the blood vessel about 40%. 5- LVEDP was 10 mm Hg and no gradient across aortic valve. 6- opening arterial pressure was 160/90 and closing pressure was 180/100 7- right femoral artery angiogram shows no significant disease in the right common femoral artery. Conclusion:: complex disease involving ostial ramus and left circumflex artery. Distal left main 50%. ostial LAD in 1 of the cranial views seems to have a lesion 90%. mid RCA 99%. Assessment and Plan Additional Plan transfer to [facility] for consideration for CABG. will need a renal consultation at [facility].
--- NOTE | 2020-06-08 15:07 | SUR.PHASEII ---
Report called to Eduard receiving WESTON Pardo.
--- NOTE | 2020-06-08 16:36 | SUR.PHASEII ---
Pt. transferred to [facility] for further evaluation and care. Pt. agreeable to transfer. Pt. transferred by [facility] at 1650 06/08/2020. Report called to WESTON Pardo at [facility]. No change in pt. condition upon departure.
== END 2020-06-08 16:00 | disposition home or self-care (01) ==
PROVIDERS: PCP Internal Medicine; Visit Provider Internal Medicine Cardiovascular Disease
PROC: 4A023N7 Measurement of Cardiac Sampling and Pressure, Left Heart, Percutaneous Approach (ICD-10-PCS; CPT 93452; principal; 2020-06-08 10:30)
DX: I25.10 Atherosclerotic heart disease of native coronary artery without angina pectoris (principal); R94.39 Abnormal result of other cardiovascular function study; R07.9 Chest pain, unspecified; I12.9 Hypertensive chronic kidney disease with stage 1 through stage 4 chronic kidney disease, or unspecified chronic kidney disease; N18.9 Chronic kidney disease, unspecified; E11.22 Type 2 diabetes mellitus with diabetic chronic kidney disease; E11.42 Type 2 diabetes mellitus with diabetic polyneuropathy; D63.8 Anemia in other chronic diseases classified elsewhere; E78.5 Hyperlipidemia, unspecified; Z79.01 Long term (current) use of anticoagulants; Z86.718 Personal history of other venous thrombosis and embolism; E66.9 Obesity, unspecified; Z68.34 Body mass index [BMI] 34.0-34.9, adult; Z82.49 Family history of ischemic heart disease and other diseases of the circulatory system; Z87.891 Personal history of nicotine dependence
CPT/HCPCS: 36415; 80048; 85025; 85610; 93458; C1769; C1887; C1894; J0360; J1644; J2250; J3010; J7030

== ENCOUNTER 2020-08-07 11:51 | Outpatient (CLI) | payer MEDICARE, OTHER, SELFPAY ==
[2020-08-07 12:35] LABS: Basophils Percent Auto 0.2 % (0.2-1.2); Eosinophils Absolute Auto 0.2 K/mm3 (0-0.3); Eosinophils Percent Auto 3.1 % (0-4.4); Hematocrit 30.3 % (42.0-52.0); Hemoglobin 9.4 g/dL (14.0-18.0); Immature Granulocyte Absolute 0.02 K/mm3 (0.00-0.031); Immature Granulocyte Percent A 0.4 % (0-0.5); Lymphocytes Absolute Auto 0.57 K/mm3 (0.9-3.2); Lymphocytes Percent Auto 10.2 % (18.3-44.2); Mean Corpuscular Hemoglobin 27.7 pg (26-34); Mean Corpuscular Volume 89.4 fl (80-100); Mean Platelet Volume 9.3 fl (7.4-10.4); Monocytes Absolute Auto 0.5 K/mm3 (0.1-0.6); Monocytes Percent Auto 8.3 % (2.6-8.5); Neutrophils Absolute Auto 4.3 K/mm3 (1.3-6.7); Neutrophils Percent Auto 77.8 % (45.5-73.1); Platelet Count Result 166 k/mm3 (150-375); Red Blood Count 3.39 M/mm3 (4.6-6.20); Red Cell Distribution Width 15.9 % (11.5-14.5); White Blood Count 5.6 K/mm3 (4.5-10.0)
[2020-08-07 12:37] LABS: Alanine Aminotransferase 22 U/L (4-50); Albumin Level 4.1 g/dL (3.5-5.1); Alkaline Phosphatase 81 U/L (38-126); Anion Gap 6 mmol/L (8-16); Aspartate Amino Transferase 21 U/L (17-59); Bilirubin,Total 0.6 mg/dL (0.2-1.3); Blood Urea Nitrogen 40 mg/dL (9-20); Calcium 9.1 mg/dL (8.4-10.2); Carbon Dioxide 27 mmol/L (22-30); Chloride 106 mmol/L (98-107); Estimated Glomerular Filt Rate 32; Glucose 93 mg/dL (75-110); Potassium 4.6 mmol/L (3.4-5.0); Sodium 139 mmol/L (137-145)
[2020-08-07 13:23] LABS: Iron 58 ug/dL (49-181)
[2020-08-07 13:32] LABS: Percent Iron Saturation 23 % (20-50)
== END 2020-08-07 11:52 | disposition home or self-care (01) ==
PROVIDERS: PCP Internal Medicine
DX: D75.81 Myelofibrosis (principal); D50.1 Sideropenic dysphagia; N18.31 Chronic kidney disease, stage 3a
CPT/HCPCS: 36415; 80053; 82728; 83540; 83550; 85025

== ENCOUNTER 2020-10-12 15:00 | Outpatient (RCR) | payer MEDICARE, OTHER, SELFPAY ==
[2020-10-06 15:40] VITALS: BP 154/58; PULSE 63; RESP 20; O2SAT 98
[2020-10-06 15:55] VITALS: PULSE 63
--- NOTE | 2020-10-17 15:31 | PCCPR ---
Britton out this work for a head cold, plans to return Monday 10/23.
--- NOTE | 2020-10-23 09:23 | PCCPR ---
Patient called today stating he has cold like symptoms and will be absent this week. Patient stated he was concerned it may be covid but was contacting his PCP to discuss his symptoms.
--- NOTE | 2020-11-06 16:11 | PCCPR ---
ELIE HAS NOT RETURNED TO REHAB, CALLED TODAY AND LEFT MESSAGE TO RETURN OUR CALL.
--- NOTE | 2020-11-10 09:27 | PCCPR ---
Britton called this morning and request discharge from program, stated he would prefer to exercise at home.
== END 2020-11-10 09:28 | disposition home or self-care (01) ==
LOC: ANHCPREHAB 15:00
PROVIDERS: PCP Internal Medicine; Visit Provider Internal Medicine Cardiovascular Disease
DX: Z95.1 Presence of aortocoronary bypass graft (principal)
CPT/HCPCS: 93798

== ENCOUNTER 2020-10-23 06:43 | Outpatient (CLI) | payer MEDICARE, OTHER, SELFPAY ==
[2020-10-23 07:18] LABS: Hematocrit 31.2 % (42.0-52.0); Mean Corpuscular HGB Conc 32.1 g/dl (32-36); Mean Corpuscular Hemoglobin 27.9 pg (26-34); Mean Corpuscular Volume 86.9 fl (80-100); Mean Platelet Volume 8.9 fl (7.4-10.4); Platelet Count Result 133 k/mm3 (150-375); Red Blood Count 3.59 M/mm3 (4.6-6.20); Red Cell Distribution Width 15.7 % (11.5-14.5); White Blood Count 5.8 K/mm3 (4.5-10.0)
[2020-10-23 07:33] LABS: Albumin Level 3.7 g/dL (3.5-5.1); Anion Gap 9 mmol/L (8-16); Blood Urea Nitrogen 34 mg/dL (9-20); Calcium 8.3 mg/dL (8.4-10.2); Carbon Dioxide 19 mmol/L (22-30); Chloride 110 mmol/L (98-107); Estimated Glomerular Filt Rate 41; Glucose 93 mg/dL (65-110); Phosphorus 3.1 mg/dL (2.5-4.5); Sodium 138 mmol/L (137-145)
[2020-10-23 07:37] LABS: Creatinine Urine 93.3 mg/dL; Total Protein Urine Random 16 mg/dL; Ur Ttl Prot Creatinine Ratio 0.17 mg/mg (0-0.20)
[2020-10-23 07:38] LABS: Parathyroid Intact 145.5 pg/mL (7.5-53.5)
== END 2020-10-23 06:44 | disposition home or self-care (01) ==
PROVIDERS: PCP Internal Medicine; Visit Provider Internal Medicine Nephrology
DX: N18.4 Chronic kidney disease, stage 4 (severe) (principal)
CPT/HCPCS: 36415; 80069; 82570; 83970; 84156; 85027

== ENCOUNTER 2021-01-26 06:31 | Outpatient (CLI) | payer MEDICARE, OTHER, SELFPAY ==
[2021-01-26 07:25] LABS: Anion Gap 7 mmol/L (8-16); Blood Urea Nitrogen 33 mg/dL (9-20); Calcium 8.5 mg/dL (8.4-10.2); Carbon Dioxide 24 mmol/L (22-30); Chloride 107 mmol/L (98-107); Estimated Glomerular Filt Rate 36; Glucose 112 mg/dL (65-110); Phosphorus 3.1 mg/dL (2.5-4.5); Potassium 4.5 mmol/L (3.4-5.0); Sodium 138 mmol/L (137-145)
[2021-01-26 07:26] LABS: Creatinine Urine 106.4 mg/dL; Total Protein Urine Random 18 mg/dL; Ur Ttl Prot Creatinine Ratio 0.17 mg/mg (0-0.20)
[2021-01-30 22:30] LABS: ANCA Screen Negative (Negative)
== END 2021-01-26 06:32 | disposition home or self-care (01) ==
LOC: ANHLAB 06:35
PROVIDERS: PCP Internal Medicine; Visit Provider Internal Medicine
DX: N18.32 Chronic kidney disease, stage 3b (principal)
CPT/HCPCS: 36415; 80069; 82570; 84156; 86021

== ENCOUNTER 2021-03-20 11:00 | Outpatient (CLI) | payer MEDICARE, OTHER, SELFPAY ==
[2021-03-20 11:45] LABS: Alanine Aminotransferase 22 U/L (4-50); Albumin Level 4.2 g/dL (3.5-5.1); Alkaline Phosphatase 99 U/L (38-126); Anion Gap 6 mmol/L (8-16); Aspartate Amino Transferase 21 U/L (17-59); Bilirubin,Total 0.6 mg/dL (0.2-1.3); Blood Urea Nitrogen 40 mg/dL (9-20); Calcium 8.9 mg/dL (8.4-10.2); Carbon Dioxide 24 mmol/L (22-30); Chloride 106 mmol/L (98-107); Cholesterol 181 mg/dL (0-200); Estimated Glomerular Filt Rate 30; Glucose 106 mg/dL (65-110); HDL Direct 34 mg/dL; Potassium 5.1 mmol/L (3.4-5.0); Sodium 136 mmol/L (137-145); Triglycerides 231 mg/dL (<150)
[2021-03-20 11:56] LABS: LDL Cholesterol Direct 101 mg/dL
[2021-03-20 12:14] LABS: Prostate Specific Antigen 2.3 ng/mL (< OR = 4.0)
[2021-03-26 12:55] LABS: Testosterone Total 349 ng/dL (250-1100)
== END 2021-03-20 11:01 | disposition home or self-care (01) ==
PROVIDERS: PCP Internal Medicine; Visit Provider Internal Medicine
DX: Z12.5 Encounter for screening for malignant neoplasm of prostate (principal); E78.5 Hyperlipidemia, unspecified; R79.89 Other specified abnormal findings of blood chemistry
CPT/HCPCS: 36415; 80053; 80061; 84153; 84402; 84403; G0103

== ENCOUNTER 2021-05-22 11:09 | Outpatient (CLI) | payer MEDICARE, OTHER, SELFPAY ==
[2021-05-22 12:44] LABS: Hematocrit 35.1 % (42.0-52.0); Hemoglobin 11.4 g/dL (14.0-18.0); Mean Corpuscular HGB Conc 32.5 g/dl (32-36); Mean Corpuscular Hemoglobin 28.9 pg (26-34); Mean Corpuscular Volume 88.9 fl (80-100); Mean Platelet Volume 10.3 fl (7.4-10.4); Platelet Count Result 172 k/mm3 (150-375); Red Blood Count 3.95 M/mm3 (4.6-6.20); Red Cell Distribution Width 14.9 % (11.5-14.5)
[2021-05-22 12:58] LABS: Creatinine Urine 188.1 mg/dL; Total Protein Urine Random 9 mg/dL; Ur Ttl Prot Creatinine Ratio 0.05 mg/mg (0-0.20)
[2021-05-22 12:59] LABS: Albumin Level 4.3 g/dL (3.5-5.1); Anion Gap 11 mmol/L (8-16); Blood Urea Nitrogen 45 mg/dL (9-20); Carbon Dioxide 20 mmol/L (22-30); Chloride 107 mmol/L (98-107); Estimated Glomerular Filt Rate 26; Glucose 85 mg/dL (65-110); Phosphorus 3.5 mg/dL (2.5-4.5); Sodium 138 mmol/L (137-145)
[2021-05-22 13:08] LABS: Parathyroid Intact 182.3 pg/mL (7.5-53.5)
[2021-05-25 22:44] LABS: ANCA Screen Negative (Negative)
== END 2021-05-22 11:10 | disposition home or self-care (01) ==
PROVIDERS: PCP Internal Medicine; Visit Provider Internal Medicine Nephrology
DX: N18.32 Chronic kidney disease, stage 3b (principal)
CPT/HCPCS: 36415; 80069; 82570; 83970; 84156; 85027; 86036

== ENCOUNTER 2021-06-11 10:56 | Outpatient (CLI) | payer MEDICARE, OTHER, SELFPAY ==
[2021-06-11 11:59] LABS: Albumin Level 4.1 g/dL (3.5-5.1); Anion Gap 5 mmol/L (8-16); Blood Urea Nitrogen 40 mg/dL (9-20); Calcium 8.5 mg/dL (8.4-10.2); Carbon Dioxide 24 mmol/L (22-30); Chloride 109 mmol/L (98-107); Estimated Glomerular Filt Rate 32; Glucose 83 mg/dL (65-110); Phosphorus 3.5 mg/dL (2.5-4.5); Potassium 5.1 mmol/L (3.4-5.0); Sodium 138 mmol/L (137-145)
[2021-06-11 12:09] LABS: Creatinine Urine 77.6 mg/dL
[2021-06-11 12:17] LABS: Sodium Urine Random 105 meq/L
== END 2021-06-11 10:57 | disposition home or self-care (01) ==
LOC: ANHLAB 11:01
PROVIDERS: PCP Internal Medicine; Visit Provider Internal Medicine Nephrology
DX: N18.4 Chronic kidney disease, stage 4 (severe) (principal)
CPT/HCPCS: 36415; 80069; 82570; 84300

== ENCOUNTER 2021-09-26 16:55 | Outpatient (CLI) | payer MEDICARE, OTHER, SELFPAY ==
[2021-09-26 17:32] LABS: Hematocrit 35.4 % (42.0-52.0); Hemoglobin 10.8 g/dL (14.0-18.0); Mean Corpuscular HGB Conc 30.5 g/dl (32-36); Mean Corpuscular Hemoglobin 28.8 pg (26-34); Mean Corpuscular Volume 94.4 fl (80-100); Mean Platelet Volume 9.7 fl (7.4-10.4); Platelet Count Result 185 k/mm3 (150-375); Red Blood Count 3.75 M/mm3 (4.6-6.20); White Blood Count 6.3 K/mm3 (4.5-10.0)
[2021-09-26 17:41] LABS: Creatinine Urine 84.2 mg/dL; Total Protein Urine Random 10 mg/dL; Ur Ttl Prot Creatinine Ratio 0.12 mg/mg (0-0.20)
[2021-09-26 18:24] LABS: Parathyroid Intact 298.2 pg/mL (7.5-53.5)
[2021-09-26 19:09] LABS: Albumin Level 4.1 g/dL (3.5-5.1); Anion Gap 8 mmol/L (8-16); Blood Urea Nitrogen 42 mg/dL (9-20); Calcium 8.5 mg/dL (8.4-10.2); Carbon Dioxide 20 mmol/L (22-30); Chloride 110 mmol/L (98-107); Cholesterol 161 mg/dL (0-200); Estimated Glomerular Filt Rate 32; Glucose 86 mg/dL (65-110); HDL Direct 32 mg/dL; Phosphorus 3.9 mg/dL (2.5-4.5); Potassium 5.4 mmol/L (3.4-5.0); Sodium 138 mmol/L (137-145); Triglycerides 215 mg/dL (<150)
[2021-09-26 19:17] LABS: LDL Cholesterol Direct 92 mg/dL
[2021-09-30 14:15] LABS: ANCA Screen P-ANCA POS (Negative); P-ANCA Titer 1:40 Titer (<1:20); P-ANCA Titer Reflex Chg Test YES
== END 2021-09-26 16:56 | disposition home or self-care (01) ==
PROVIDERS: PCP Internal Medicine; Visit Provider Internal Medicine Nephrology
DX: Z12.5 Encounter for screening for malignant neoplasm of prostate (principal); N18.4 Chronic kidney disease, stage 4 (severe); E78.5 Hyperlipidemia, unspecified
CPT/HCPCS: 36415; 80061; 80069; 82570; 83970; 84153; 84156; 85027; 86036; G0103

== ENCOUNTER 2022-02-18 10:00 | Outpatient (CLI) | payer MEDICARE, OTHER, SELFPAY ==
[2022-02-18 10:50] LABS: Hematocrit 32.5 % (42.0-52.0); Hemoglobin 10.6 g/dL (14.0-18.0); Mean Corpuscular HGB Conc 32.6 g/dl (32-36); Mean Corpuscular Hemoglobin 28.9 pg (26-34); Mean Corpuscular Volume 88.6 fl (80-100); Mean Platelet Volume 10.3 fl (7.4-10.4); Platelet Count Result 150 k/mm3 (150-375); Red Blood Count 3.67 M/mm3 (4.6-6.20); Red Cell Distribution Width 14.6 % (11.5-14.5); White Blood Count 5.7 K/mm3 (4.5-10.0)
[2022-02-18 10:56] LABS: Albumin Level 4.2 g/dL (3.5-5.1); Anion Gap 9 mmol/L (8-16); Blood Urea Nitrogen 41 mg/dL (9-20); Calcium 8.5 mg/dL (8.4-10.2); Carbon Dioxide 23 mmol/L (22-30); Chloride 106 mmol/L (98-107); Estimated Glomerular Filt Rate 30; Glucose 82 mg/dL (65-110); Phosphorus 3.2 mg/dL (2.5-4.5); Potassium 4.9 mmol/L (3.4-5.0); Sodium 138 mmol/L (137-145)
[2022-02-18 11:05] LABS: Parathyroid Intact 249.9 pg/mL (7.5-53.5)
[2022-02-18 11:20] LABS: Creatinine Urine 46.6 mg/dL; Total Protein Urine Random 9 mg/dL; Ur Ttl Prot Creatinine Ratio 0.19 mg/mg (0-0.20)
[2022-02-18 11:25] LABS: Vitamin D 25 Hydroxy 60.5 ng/mL
[2022-02-21 22:14] LABS: ANCA Screen Negative (Negative)
== END 2022-02-18 10:01 | disposition home or self-care (01) ==
PROVIDERS: PCP Internal Medicine; Visit Provider Internal Medicine Nephrology
DX: N18.32 Chronic kidney disease, stage 3b (principal); E21.1 Secondary hyperparathyroidism, not elsewhere classified
CPT/HCPCS: 36415; 80069; 82306; 82570; 83970; 84156; 85027; 86036

== ENCOUNTER 2022-03-14 09:57 | Emergency (ER) | payer MEDICARE, OTHER, SELFPAY ==
--- NOTE | ~2022-03-14 | XR_ITS ---
EXAMINATION: XR chest 1V portable INDICATION: Cough TECHNIQUE: Portable AP chest at 1110 hours COMPARISON: 11/18/2019 FINDINGS: Cardiomegaly is noted. There are diffuse interstitial and airspace opacities. Median sterno sandeep wires and mediastinal surgical clips are seen, likely from prior coronary artery bypass grafting . No pleural effusion or pneumothorax. IMPRESSION: 1. Diffuse lung disease, consistent with pneumonia versus pulmonary edema versus atelectasis. 2. Cardiomegaly. Reviewed, dictated and finalized at location A. OR SCIENCE CONSULTANT IMPRESSION: 1. Diffuse lung disease, consistent with pneumonia versus pulmonary edema versu s atelectasis. 2. Cardiomegaly.
[2022-03-14 09:59] VITALS: BP 132/57; PULSE 72; RESP 14; TEMP 36.7; O2SAT 97
--- NOTE | 2022-03-14 10:33 | ED.URI ---
HPI - URI/Sore Throat General Chief Complaint: Upper Respiratory Infection Stated Complaint: cough, diarrhea, watering eyes Time Seen by Provider: 03/14/22 10:16 History of Present Illness HPI Narrative: 67-year-old male history of chronic kidney disease, diabetes, hypertension presents to the emergency room for evaluation of productive cough, rhinorrhea and sinus congestion for 2 weeks. Patient states he is called his primary care provider on 2 occasions and was placed on antibiotics. Patient states the antibiotics not improving his symptoms. Has not been taking any cough medicine or any other medications for symptoms. States he woke up this morning with drainage to bilateral eyes. Reportedly took at home COVID test this morning and it was negative. Denies shortness of breath or difficulty breathing. Denies any chest pain. Denies any body aches or headaches. Related Data Home Medications Medication Instructions Recorded Confirmed atorvastatin 20 mg tablet 20 mg PO DAILY 05/27/19 10/06/20 furosemide 40 mg tablet 40 mg DAILY 05/27/19 10/06/20 gabapentin 300 mg capsule 300 mg PO HS 05/27/19 06/07/20 labetalol 200 mg tablet 200 mg PO BID 05/27/19 10/06/20 potassium chloride 20 mEq 20 meq PO BID 05/27/19 10/06/20 tablet,extended release(part/cryst) (Klor-Con M) apixaban 5 mg tablet (Eliquis) 5 mg PO BID 07/26/19 10/06/20 ergocalciferol (vitamin D2) 1,250 1 mcg WEEKLY 07/26/19 10/06/20 mcg (50,000 unit) capsule (Vitamin D2) aspirin 81 mg tablet 81 mg PO DAILY 10/06/20 10/06/20 Allergies Allergy/AdvReac Type Severity Reaction Status Date / Time No Known Allergies Allergy Verified 06/07/20 13:38 Review of Systems Review of Systems: CONSTITUTIONAL: Denies fever, chills, or sweats. EYES: Denies visual changes, redness, or discharge. ENT: Reports rhinorrhea, congestion CARDIOVASCULAR: Denies chest pain, palpitations, or edema. RESPIRATORY: Reports cough GASTROINTESTINAL: Denies abdominal pain, nausea, vomiting, or diarrhea. GENITOURINARY: Denies dysuria or hematuria. SKIN: Denies rash or itching. MUSCULOSKELETAL: Denies back pain, joint pain, or myalgia. NEUROLOGIC: Denies headache, numbness, dizziness, or weakness. PSYCHIATRIC: Denies anxiety or depression. [facility] Past Medical History Medical History Chronic disease anemia CKD (chronic kidney disease) Diabetes HTN (hypertension) Neuropathy, peripheral Family History Family History Mother Acute myocardial infarction Hyperlipemia, mixed Hypertension Father Acute myocardial infarction Hyperlipemia, mixed Hypertension Sibling Diabetes mellitus Hyperlipemia, mixed Hypertension Sibling Small cell lung cancer Social History Social History Smoking packs per day: 1 Smoking cigarettes per day: 20.0 Years smoked: 38 Smoking pack-years: 38.00 Smoking status: Former smoker Tobacco type: cigarettes Smoking end date: 03/31/11 Alcohol intake: never Substance use: never Substance use type: does not use Gender identity (if verbalized by the patient): Male Sexual Orientation (if Verbalized by the Patient): Straight or Heterosexual Spiritual care concerns: No Exam Narrative: GENERAL: Well-appearing, well-nourished, no physical limitations, and in no acute distress. HEAD: Normocephalic, atraumatic. EYES: Conjunctivae normal, PERRLA and EOMI. ENT: External nose normal, clear rhinorrhea. Mucous membranes moist. Oropharynx without tonsillar hypertrophy exudate or other lesions. External ears normal, bilateral TMs normal bilaterally NECK: Supple. No adenopathy or masses. CHEST: Clear to auscultation. No respiratory distress. No wheezes rales or rhonchi. HEART: Regular rate and rhythm. No murmur heard. Normal peripheral pulses. EXTREMITIES: Normal range of chavo
[2022-03-14 10:52] LABS: Basophils Percent Auto 0.6 % (0.2-1.2); Eosinophils Absolute Auto 0.2 K/mm3 (0-0.3); Eosinophils Percent Auto 3.1 % (0-4.4); Hematocrit 31.2 % (42.0-52.0); Immature Granulocyte Percent A 1.6 % (0-0.5); Lymphocytes Absolute Auto 0.83 K/mm3 (0.9-3.2); Lymphocytes Percent Auto 12.9 % (18.3-44.2); Mean Corpuscular HGB Conc 32.1 g/dl (32-36); Mean Corpuscular Volume 90.4 fl (80-100); Mean Platelet Volume 9.5 fl (7.4-10.4); Monocytes Absolute Auto 0.6 K/mm3 (0.1-0.6); Monocytes Percent Auto 9.6 % (2.6-8.5); Neutrophils Absolute Auto 4.6 K/mm3 (1.3-6.7); Neutrophils Percent Auto 72.2 % (45.5-73.1); Platelet Count Result 194 k/mm3 (150-375); Red Blood Count 3.45 M/mm3 (4.6-6.20); Red Cell Distribution Width 14.9 % (11.5-14.5); White Blood Count 6.4 K/mm3 (4.5-10.0)
[2022-03-14 11:01] LABS: Lactic Acid Reflex 1.4 mmol/L (0.7-2.0)
[2022-03-14 11:02] LABS: Alanine Aminotransferase 157 U/L (6-50); Alkaline Phosphatase 104 U/L (38-126); Anion Gap 7 mmol/L (8-16); Aspartate Amino Transferase 101 U/L (17-59); Bilirubin,Total 0.9 mg/dL (0.2-1.3); Blood Urea Nitrogen 39 mg/dL (9-20); Calcium 8.9 mg/dL (8.4-10.2); Carbon Dioxide 24 mmol/L (22-30); Chloride 106 mmol/L (98-107); Estimated CRCL calculation 31 ml/min; Estimated Glomerular Filt Rate 27; Glucose 104 mg/dL (65-110); Sodium 137 mmol/L (137-145)
--- NOTE | 2022-03-14 11:13 | PC.NURSE ---
Patient report given to WESTON Jaime. All questions answered and care of patient transferred.
[2022-03-14 11:14] LABS: Influenza A QL RT-PCR Negative (Negative); Influenza B QL RT-PCR Negative (Negative); RSV RNA, RT-PCR Negative (Negative); SARS-CoV-2 RNA PCR Negative
[2022-03-14 11:57] VITALS: BP 144/88; PULSE 87; RESP 16; O2SAT 98
== END 2022-03-14 12:10 | disposition home or self-care (01) ==
PROVIDERS: Emergency Provider Nurse Practitioner Family; PCP Internal Medicine
DX: J18.9 Pneumonia, unspecified organism (principal); Z20.822 Contact with and (suspected) exposure to COVID-19; E11.22 Type 2 diabetes mellitus with diabetic chronic kidney disease; I12.9 Hypertensive chronic kidney disease with stage 1 through stage 4 chronic kidney disease, or unspecified chronic kidney disease; N18.9 Chronic kidney disease, unspecified; D63.1 Anemia in chronic kidney disease; E11.42 Type 2 diabetes mellitus with diabetic polyneuropathy; Z79.82 Long term (current) use of aspirin; Z79.01 Long term (current) use of anticoagulants; I51.7 Cardiomegaly
CPT/HCPCS: 36415; 71045; 80053; 83605; 85025; 87637; 99283

== ENCOUNTER 2022-07-24 07:49 | Outpatient (CLI) | payer MEDICARE, OTHER, SELFPAY ==
[2022-07-24 08:23] LABS: Hematocrit 40.1 % (42.0-52.0); Hemoglobin 12.9 g/dL (14.0-18.0); Mean Corpuscular HGB Conc 32.2 g/dl (32-36); Mean Corpuscular Hemoglobin 30.4 pg (26-34); Mean Corpuscular Volume 94.6 fl (80-100); Mean Platelet Volume 9.5 fl (7.4-10.4); Platelet Count Result 135 k/mm3 (150-375); Red Blood Count 4.24 M/mm3 (4.6-6.20); Red Cell Distribution Width 13.7 % (11.5-14.5); White Blood Count 6.5 K/mm3 (4.5-10.0)
[2022-07-24 08:29] LABS: Albumin Level 4.4 g/dL (3.5-5.1); Anion Gap 8 mmol/L (8-16); Blood Urea Nitrogen 28 mg/dL (9-20); Calcium 8.6 mg/dL (8.4-10.2); Carbon Dioxide 24 mmol/L (22-30); Chloride 106 mmol/L (98-107); Estimated Glomerular Filt Rate 38; Glucose 113 mg/dL (65-110); Phosphorus 2.3 mg/dL (2.5-4.5); Potassium 4.6 mmol/L (3.4-5.0); Sodium 138 mmol/L (137-145)
[2022-07-24 08:34] LABS: Creatinine Urine 87.8 mg/dL; Total Protein Urine Random 31 mg/dL; Ur Ttl Prot Creatinine Ratio 0.35 mg/mg (0-0.20)
[2022-07-24 09:01] LABS: Parathyroid Intact 187.5 pg/mL (7.5-53.5)
[2022-07-24 09:44] LABS: Vitamin D 25 Hydroxy 67.8 ng/mL
== END 2022-07-24 07:50 | disposition home or self-care (01) ==
LOC: ANHLAB 07:52
PROVIDERS: PCP Internal Medicine; Visit Provider Internal Medicine Nephrology
DX: N18.4 Chronic kidney disease, stage 4 (severe) (principal); D63.1 Anemia in chronic kidney disease; E21.1 Secondary hyperparathyroidism, not elsewhere classified
CPT/HCPCS: 36415; 80069; 82306; 82570; 83970; 84156; 85027

== ENCOUNTER 2022-08-16 08:58 | Outpatient (CLI) | payer MEDICARE, OTHER, SELFPAY ==
[2022-08-16 09:28] LABS: Hematocrit 37.3 % (42.0-52.0); Hemoglobin 12.2 g/dL (14.0-18.0); Immature Platelet Fraction Pct 2.6 % (0.9-11.2); Mean Corpuscular HGB Conc 32.7 g/dl (32-36); Mean Corpuscular Hemoglobin 30.1 pg (26-34); Mean Corpuscular Volume 92.1 fl (80-100); Mean Platelet Volume 9.5 fl (7.4-10.4); Platelet Count Result 164 k/mm3 (150-375); Red Blood Count 4.05 M/mm3 (4.6-6.20); Red Cell Distribution Width 13.9 % (11.5-14.5); White Blood Count 5.5 K/mm3 (4.5-10.0)
[2022-08-16 09:38] LABS: Alanine Aminotransferase 22 U/L (6-50); Albumin Level 4.2 g/dL (3.5-5.1); Alkaline Phosphatase 90 U/L (38-126); Anion Gap 8 mmol/L (8-16); Aspartate Amino Transferase 20 U/L (17-59); Bilirubin,Total 0.7 mg/dL (0.2-1.3); Blood Urea Nitrogen 29 mg/dL (9-20); Calcium 8.6 mg/dL (8.4-10.2); Carbon Dioxide 24 mmol/L (22-30); Chloride 106 mmol/L (98-107); Estimated Glomerular Filt Rate 33; Glucose 135 mg/dL (65-110); Phosphorus 3.1 mg/dL (2.5-4.5); Potassium 4.5 mmol/L (3.4-5.0); Sodium 138 mmol/L (137-145)
[2022-08-16 09:42] LABS: Creatinine Urine 104.6 mg/dL; Total Protein Urine Random 24 mg/dL; Ur Ttl Prot Creatinine Ratio 0.23 mg/mg (0-0.20)
[2022-08-16 10:20] LABS: Hepatitis B Surface Antigen Negative (Negative)
[2022-08-16 10:25] LABS: HAV RESULT Negative (Negative)
[2022-08-16 10:31] LABS: Parathyroid Intact 165.9 pg/mL (7.5-53.5)
[2022-08-16 10:34] LABS: Hepatitis C Virus Antibody Negative (Negative)
[2022-08-16 10:57] LABS: Hepatitis B Core IgM Result Negative (Negative)
[2022-08-24 22:41] LABS: ANCA Screen Negative (Negative)
== END 2022-08-16 08:59 | disposition home or self-care (01) ==
PROVIDERS: PCP Internal Medicine; Visit Provider Internal Medicine Nephrology
DX: R74.8 Abnormal levels of other serum enzymes (principal); E21.1 Secondary hyperparathyroidism, not elsewhere classified; N18.4 Chronic kidney disease, stage 4 (severe)
CPT/HCPCS: 36415; 80069; 80074; 80076; 82570; 83970; 84156; 85027; 85055; 86036

== ENCOUNTER 2022-11-02 07:39 | Outpatient (CLI) | payer MEDICARE, OTHER, SELFPAY ==
[2022-11-02 08:03] LABS: Hematocrit 35.8 % (42.0-52.0); Hemoglobin 11.3 g/dL (14.0-18.0); Mean Corpuscular HGB Conc 31.6 g/dl (32-36); Mean Corpuscular Hemoglobin 30.3 pg (26-34); Mean Platelet Volume 9.8 fl (7.4-10.4); Platelet Count Result 137 k/mm3 (150-375); Red Blood Count 3.73 M/mm3 (4.6-6.20); Red Cell Distribution Width 13.8 % (11.5-14.5); White Blood Count 6.5 K/mm3 (4.5-10.0)
[2022-11-02 08:15] LABS: Albumin Level 4.1 g/dL (3.5-5.1); Anion Gap 4 mmol/L (8-16); Blood Urea Nitrogen 43 mg/dL (9-20); Calcium 8.3 mg/dL (8.4-10.2); Carbon Dioxide 25 mmol/L (22-30); Chloride 104 mmol/L (98-107); Estimated Glomerular Filt Rate 28; Glucose 96 mg/dL (65-110); Phosphorus 3.5 mg/dL (2.5-4.5); Sodium 133 mmol/L (137-145)
[2022-11-02 08:16] LABS: Total Protein Urine Random 12 mg/dL
[2022-11-02 08:24] LABS: Creatinine Urine 64.6 mg/dL; Ur Ttl Prot Creatinine Ratio 0.19 mg/mg (0-0.20)
[2022-11-02 10:39] LABS: Parathyroid Intact 215.4 pg/mL (7.5-53.5)
== END 2022-11-02 07:40 | disposition home or self-care (01) ==
PROVIDERS: PCP Internal Medicine; Visit Provider Internal Medicine Nephrology
DX: N18.4 Chronic kidney disease, stage 4 (severe) (principal)
CPT/HCPCS: 36415; 80069; 82570; 83970; 84156; 85027

== ENCOUNTER 2023-02-05 18:46 | Inpatient (IN) | payer MEDICARE, OTHER, SELFPAY ==
--- NOTE | ~2023-02-05 | US_ITS ---
EXAMINATION: US renal BI DATE: 02/06/2023 08:25 INDICATION: Acute kidney injury TECHNIQUE: Multiple grayscale and Doppler ultrasound images of the kidneys were obtained. COMPARISON: None. FINDINGS: The right kidney measures 10.5 x 4.3 x 4.9 cm. The left kidney measures 10.3 x 5.2 x 4.9 cm . The kidneys demonstrate increased parenchymal echogenicity. There is mild cortical thinning of the kidneys. There is no hydronephrosis. The bladder demonstrates mild wall thickening. IMPRESSION: 1. Medical renal disease. 2. Mild wall thickening of the urinary bladder which could be due to cystitis or chronic outlet obstr uction. Reviewed, dictated and finalized at location L. HER GOODS MAKER IMPRESSION: 1. Medical renal disease. 2. Mild wall thickening of the urinary bladder which could be due to cystitis o r chronic outlet obstruction.
--- NOTE | ~2023-02-05 | CT_ITS ---
EXAMINATION: CTA abdomen pelvis DATE: 02/05/2023 22:20 INDICATION: Melena. Hematuria. TECHNIQUE: Computed tomographic angiography (CTA) of the abdomen and pelvis was performed with 100 mL Omnipaque-350 intravenous contrast. The dose-length product was 1319.48 mGy-cm. Maximum intensity pr ojection 3D-reconstructions of the aorta and other arteries were constructed by the technologist on a separate workstation. COMPARISON: CT abdomen and pelvis 07/26/2019 FINDINGS: The visualized portions of the lung bases demonstrate chronic groundglass opacities and sep dimas thickening. There is mild bronchiectasis bilaterally. No pleural effusion. The heart size is norm al. No pericardial effusion. There are coronary artery calcifications. Median sternotomy wires are no yun. The liver, gallbladder, spleen, pancreas, and adrenal glands are normal. There is cortical thinn ing of the kidneys. The prostate is moderately enlarged. There is chronic diffuse bladder wall thicke radha, likely secondary to chronic outlet obstruction. There is diverticulosis of the colon without ev idence of diverticulitis. There are no dilated loops of bowel. The appendix is normal. There is calci fied atherosclerosis of the aorta and many of the other arteries. There are embolization coils in gas troduodenal artery. There is a left inguinal hernia containing fat. There are no pathologically enlar ged lymph nodes. There is no free intraperitoneal fluid. There is bilateral gynecomastia. There are b ridging endplate osteophytes at multiple levels in the spine, consistent with diffuse idiopathic skel etal hyperostosis (DISH). There are chronic bilateral L5 pars defects. There is 11 mm anterolisthesis of L5 on S1. There is moderate lumbar spondylosis. IMPRESSION: 1. No etiology for the patient's symptoms. 2. Chronic interstitial lung disease in a pattern of nonspecific interstitial pneumonia (NSIP). Reviewed, dictated and finalized at location E. RETE MIXING TRUCK DRIVER IMPRESSION: 1. No etiology for the patient's symptoms. 2. Chronic interstitial lung disease in a pattern of nonspecific interstitial p neumonia (NSIP).
[2023-02-05 19:09] VITALS: BP 143/57; PULSE 81; RESP 20; TEMP 37.1; O2SAT 93
[2023-02-05 19:45] LABS: Basophils Percent Auto 0.2 % (0.2-1.2); Eosinophils Percent Auto 0.8 % (0-4.4); Hematocrit 36.9 % (42.0-52.0); Hemoglobin 11.5 g/dL (14.0-18.0); Immature Granulocyte Absolute 0.02 K/mm3 (0.00-0.031); Immature Granulocyte Percent A 0.4 % (0-0.5); Lymphocytes Absolute Auto 0.77 K/mm3 (0.9-3.2); Lymphocytes Percent Auto 15.2 % (18.3-44.2); Mean Corpuscular HGB Conc 31.2 g/dl (32-36); Mean Corpuscular Hemoglobin 29.6 pg (26-34); Mean Corpuscular Volume 94.9 fl (80-100); Monocytes Absolute Auto 0.5 K/mm3 (0.1-0.6); Neutrophils Absolute Auto 3.7 K/mm3 (1.3-6.7); Neutrophils Percent Auto 73.4 % (45.5-73.1); Platelet Count Result 134 k/mm3 (150-375); Red Blood Count 3.89 M/mm3 (4.6-6.20); Red Cell Distribution Width 14.6 % (11.5-14.5); White Blood Count 5.1 K/mm3 (4.5-10.0)
[2023-02-05 19:55] LABS: Alanine Aminotransferase 27 U/L (6-50); Albumin Level 4.2 g/dL (3.5-5.1); Alkaline Phosphatase 79 U/L (38-126); Anion Gap 12 mmol/L (8-16); Aspartate Amino Transferase 34 U/L (17-59); Blood Urea Nitrogen 50 mg/dL (9-20); Calcium 8.1 mg/dL (8.4-10.2); Carbon Dioxide 17 mmol/L (22-30); Chloride 107 mmol/L (98-107); Estimated CRCL calculation 23 ml/min; Estimated Glomerular Filt Rate 20; Glucose 108 mg/dL (65-110); Potassium 4.5 mmol/L (3.4-5.0); Sodium 136 mmol/L (137-145)
[2023-02-05 19:58] LABS: Bacteria Urine None Seen /hpf; Need Manual Microscopic Reviewed; RBC Urine >100 /hpf (0-2); Squamous Epithelial Cell Urine None seen /hpf (Few); WBC Urine 0-5 /hpf
[2023-02-05 20:04] LABS: Appearance Urine Slightly Cloudy (Clear); Bilirubin Urine Negative (Negative); Blood Urine 3+ (Negative); Color Urine Yellow (Yellow); Glucose Urine UA Negative (Negative); Ketones Urine Negative (Negative); Leukocyte Esterase Ur Negative LEU/UL (Negative); Nitrate Urine Negative (Negative); Protein Urine 1+ mg/dL (Negative); Urobilinogen Urine 0.2 mg/dL (<2.0); pH Urine 5.5 (5.0-9.0)
[2023-02-05 20:06] LABS: Add Urine Microscopic? YES
[2023-02-05 20:09] LABS: INR 1.3; Prothrombin Time 16.8 Seconds (11.1-14.7)
[2023-02-05 20:11] LABS: Partial Thromboplastin Time 70.1 SECONDS (22.3-36.8)
[2023-02-05 20:12] VITALS: BP 138/54; PULSE 81; RESP 23; O2SAT 95
[2023-02-05 21:09] VITALS: BP 138/58; PULSE 79; RESP 22; O2SAT 96
--- NOTE | 2023-02-05 21:29 | ED.GIBLEED ---
HPI - GI Bleed General Chief complaint: GI Bleed Stated complaint: abd pain Time Seen by Provider: 02/05/23 20:31 Source: patient, family () and other (Dr. Barnard ) History of Present Illness HPI Narrative: Dr. Barnard called and notified us patient would be presenting based on the below complaints and history/risk factors. Patient is a 67 year old with a history of microscopic polyangitis, renal failure, GI bleed, an AVM coiled (at [facility]), and DVT (2015) on Elliquis 5mg BID who presents with intermittent abdominal pain x1 day and hematuria. He State the abdominal pain is only when he is having bowel movements. He has been having dark black loose stools. He has also been having myalgias and chills but no fevers. He thought his initial symptoms were due to a cold and was just prescribed azithromycin but told to come to the ED for the hematuria and abdominal pain. He does have dysuria. He never required dialysis for his kidney dysfunction but was on a chemo drug for 3 years; this was discontinued approximately 3 years ago and as far as he knew his kidney function had recovered. No syncope. Related Data Home Medications Medication Instructions Recorded Confirmed apixaban 5 mg tablet (Eliquis) 5 mg PO BID 07/26/19 11/06/22 aspirin 81 mg tablet 81 mg PO DAILY 10/06/20 11/06/22 mecobalamin (vitamin B12) 10,000 mcg IM MONTHLY 11/04/22 11/06/22 mcg solution for injection Allergies Allergy/AdvReac Type Severity Reaction Status Date / Time No Known Allergies Allergy Verified 02/05/23 20:17 [facility] Past Medical History Medical History (Updated 02/06/23 @ 09:53 by Jordana Haskins MD) Chronic disease anemia CKD (chronic kidney disease) Diabetes DVT (deep venous thrombosis) HTN (hypertension) Microscopic polyangiitis Neuropathy, peripheral Family History Family History Mother Acute myocardial infarction Hyperlipemia, mixed Hypertension Father Acute myocardial infarction Hyperlipemia, mixed Hypertension Sibling Diabetes mellitus Hyperlipemia, mixed Hypertension Sibling Small cell lung cancer Social History Social History (Updated 02/06/23 @ 09:44 by Jordana Haskins MD) Social History: Has 4 great grandchildren Smoking packs per day: 1 Smoking cigarettes per day: 20.0 Years smoked: 38 Smoking pack-years: 38.00 Smoking status: Former smoker Tobacco type: cigarettes Smoking end date: 03/31/11 Alcohol intake: never Substance use: never Substance use type: does not use Lack of Transportation: No Lack of Food: Never True Current Housing: I Have Housing Concerned About Future Housing: No Difficulty Paying Gas/Electric Bills: No Difficulty Paying for Meds: No Currently Unemployed: No Living arrangements: with family Occupation/Education: retired 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 Gender identity (if verbalized by the patient): Male Sexual Orientation (if Verbalized by the Patient): Straight or Heterosexual Spiritual care concerns: No Exam Const: General: healthy appearing, no acute distress and alert; No diaphoretic or ill appearing Nutritional Appearance: well nourished HENMT: Head: normal to inspection Other: gross auditory acuity intact Neck: Neck: normal visual inspection Resp: Effort & Inspection: normal respiratory effort, not labored, no retractions, not tachypneic and no use of accessory muscles Cardio: Rate: regular rate, not bradycardic and not tachycardic GI: Inspection: distended GI Palp: Yes Soft to palpation, No Tenderness to palpation present (GI), No Guarding due to palpation present (GI), No Rigid due to palpation and No Rebound tenderness present : General: Yes bladder normal to palpation Skin: General skin exam: normal color, no jaundice and no pallor Rashes: no rashes (no petecchiae) Neuro: General: patien
[2023-02-05 22:11] LABS: Hematocrit 35.2 % (42.0-52.0); Hemoglobin 11.1 g/dL (14.0-18.0)
--- NOTE | 2023-02-05 22:43 | PM.IMHP ---
H&P: HPI History of Present Illness Date/Time: 02/05/23 22:43 Chief Complaint: Dark stools Narrative: This is a 67-year-old male with past medical history significant for chronic kidney disease, hypertension, peripheral neuropathy, patient is on chronic anticoagulation, type 2 diabetes mellitus. Patient presents to the emergency room after having 2 days of melena, denies bright red blood per rectum denies coffee-ground emesis or hematemesis or hematochezia patient had an episode of hematuria as well. Has been his usual state of health up until this point. In emergency room hemoglobin and hematocrit were found to be at 11.5 and 36 respectively.Patient is been admitted for further evaluation management and treatment. EXAMINATION: CTA abdomen pelvis DATE: 02/05/2023 22:20 INDICATION: Melena. Hematuria. TECHNIQUE: Computed tomographic angiography (CTA) of the abdomen and pelvis was performed with 100 mL Omnipaque-350 intravenous contrast. The dose-length product was 1319.48 mGy-cm. Maximum intensity projection 3D-reconstructions of the aorta and other arteries were constructed by the technologist on a separate workstation. COMPARISON: CT abdomen and pelvis 07/26/2019 FINDINGS: The visualized portions of the lung bases demonstrate chronic groundglass opacities and septal thickening. There is mild bronchiectasis bilaterally. No pleural effusion. The heart size is normal. No pericardial effusion. There are coronary artery calcifications. Median sternotomy wires are noted. The liver, gallbladder, spleen, pancreas, and adrenal glands are normal. There is cortical thinning of the kidneys. The prostate is moderately enlarged. There is chronic diffuse bladder wall thickening, likely secondary to chronic outlet obstruction. There is diverticulosis of the colon without evidence of diverticulitis. There are no dilated loops of bowel. The appendix is normal. There is calcified atherosclerosis of the aorta and many of the other arteries. There are embolization coils in gastroduodenal artery. There is a left inguinal hernia containing fat. There are no pathologically enlarged lymph nodes. There is no free intraperitoneal fluid. There is bilateral gynecomastia. There are bridging endplate osteophytes at multiple levels in the spine, consistent with diffuse idiopathic skeletal hyperostosis (DISH). There are chronic bilateral L5 pars defects. There is 11 mm anterolisthesis of L5 on S1. There is moderate lumbar spondylosis. IMPRESSION: 1. No etiology for the patient's symptoms. 2. Chronic interstitial lung disease in a pattern of nonspecific interstitial pneumonia (NSIP). Review of Systems Review of Systems: Melena Constitutional: Constitutional: Denies chills, Denies fatigue, Denies fever(s), Denies malaise, Denies night sweats and Denies weakness Eyes: Eyes: Denies change in vision ENT: Denies dysphagia, Denies vertigo, Denies dizziness and Denies odynophagia Cardiovascular: Cardiovascular: Denies chest pain, Denies radiating jaw, neck or arm pain and Denies palpitations Respiratory: Respiratory: Denies chest congestion, Denies cough and Denies dyspnea Gastrointestinal: Gastrointestinal: Denies abdominal pain, Reports melena, Denies hematochezia, Denies coffee ground emesis, Denies dyspepsia, Denies heartburn, Denies diarrhea, Denies nausea, Denies vomiting and Denies hematemesis Genitourinary: Genitourinary: Reports hematuria Musculoskeletal: Musculoskeletal: Denies back pain and Denies arthralgias Integumentary/Breasts: Skin/Breast: Denies rash Neurologic: Denies focal weakness and Denies Sensory deficit (Neuro) Psychiatric: Psychiatric: Reports no additional psychiatric complaints and Reports as per HPI Endocrine: Endocrine: Denies cold intolerance, Denies fatigue, Denies flushing, Denies heat intolerance, Denies polyphagia, Denies polydipsia and Denies palpitations Hematologic/Lymphatic: Hematologic/Lymphatic: Reports no additional hem
[2023-02-05] MEDS: LACTATED RINGERS 1,000 ML 125 ML IV CONT (22:54)
[2023-02-05 23:00] VITALS: BP 116/96; PULSE 80; RESP 19; O2SAT 97
[2023-02-05 23:49] VITALS: BP 149/59; BP 158/66; BP 177/87; PULSE 113; PULSE 84; PULSE 89
[2023-02-06] VITALS (44 sets, daily range): BP systolic 143–187; BP diastolic 54–79; PULSE 64–92; RESP 12–26; TEMP 36.3–36.6; O2SAT 94–99; BMI 36.1
[2023-02-06 06:04] LABS: Hematocrit 34.4 % (42.0-52.0); Hemoglobin 10.9 g/dL (14.0-18.0)
[2023-02-06 06:16] LABS: Anion Gap 12 mmol/L (8-16); Blood Urea Nitrogen 47 mg/dL (9-20); Calcium 7.8 mg/dL (8.4-10.2); Carbon Dioxide 17 mmol/L (22-30); Chloride 106 mmol/L (98-107); Estimated CRCL calculation 25 ml/min; Estimated Glomerular Filt Rate 22; Glucose 77 mg/dL (65-110); Potassium 4.1 mmol/L (3.4-5.0); Sodium 135 mmol/L (137-145)
--- NOTE | 2023-02-06 07:30 | PC.NURSE ---
Pt unhappy that he is still in the ED. This RN offered to get him a hospital bed and order him breakfast. Pt states im not staying here another night
--- NOTE | 2023-02-06 08:14 | PC.NURSE ---
Pt given breakfast tray
[2023-02-06] MEDS: LACTATED RINGERS 1,000 ML 125 ML IV CONT ×2 (10:00→18:20)
[2023-02-06] MEDS: SODIUM BICARBONATE TAB 650 MG TABLET PO ×2 (10:04→18:20)
--- NOTE | 2023-02-06 10:25 | PC.NURSE ---
This RN to room to admin medication. Pt sitting on the side of the bed. Pt again offered a hospital bed or recliner and declined. Pt states If i would have known there wasnt going to be a bed for me i never would have checked in im telling you im not staying much longer, then im going to go to [facility] and start over Hospital census discussed with pt and educated that pt is admitted and being taking care of as an admitted pt. Pt complained about it being cold, I offered a blanket, he declined. Pt complained about the sound and I offered to close the door. I apologized for the delay.
[2023-02-06 11:39] LABS: Iron 44 ug/dL (49-181); Percent Iron Saturation 22 % (20-50)
[2023-02-06 14:31] LABS: IFOB Positive Control Positive; Immunochemical Fecal Occult Bl Positive (N)
--- NOTE | 2023-02-06 15:01 | WPDGICN ---
Assessment and Plan Assessment and plan (1) Occult blood in stools: Code(s): R19.5 - Other fecal abnormalities Status: Acute Assessment and Plan: Patient gives a history of dark stools. Stool Hemoccult testing reveals this to be heme positive. On laboratory testing patient has a mild normochromic normocytic anemia. He has recently had a colonoscopy with benign polyps identified. Because of his distant history of peptic ulcer disease we is we will place him on pantoprazole and anticipate EGD in the morning. (2) Anemia: Qualifiers: Chronic kidney disease stage: unspecified stage Code(s): D64.9 - Anemia, unspecified Status: Acute Assessment and Plan: Patient has a mild normochromic normocytic anemia. He does have chronic kidney disease which likely contributes to this. Is uncertain but may be related to GI blood loss or to his hematuria. (3) Chronic kidney disease, stage 4 (severe): Code(s): N18.4 - Chronic kidney disease, stage 4 (severe) Status: Acute Assessment and Plan: Dr. Barnard follows his chronic kidney disease. This may also contribute to his anemia. (4) Hematuria: Code(s): R31.9 - Hematuria, unspecified Status: Acute Assessment and Plan: Patient gives a history of blood in his urine. Urinalysis will be obtained. Likely this should be followed up by they primary care service. GI Consult Note Consult date/time: 02/06/23 15:01 Reason for consult: Anemia, history of duodenal ulcer. HPI: Britton Nielsen Sr. is a 67 year old male I am asked to see at the request of the emergency room. Patient has a history of bleeding duodenal ulcer in 2018. He more recently has had chronic kidney disease followed by Dr. Barnard. Patient reports over the last 2 days has noticed blood in his urine. He also is treated for peripheral neuropathy he has chronically anticoagulated has been treated for diabetes. Because of the blood in his urine he called is used dampproofer and was sent to the emergency room. On questioning he reports having had diarrhea stools that was dark in nature. Ultimately this was found to be Hemoccult positive. Patient denies any vomiting. He has no specific abdominal pain. He reports that 1 year ago was found to have multiple colon polyps performed at [facility]. Follow-up is anticipated soon. In 2018 he had a bleeding duodenal ulcer that required transfer to [facility] in ultimately intravascular coil placement to stop bleeding. Patient has recent history is noncontributory. Review of Systems Review of Systems: Review of systems noncontributory. [facility] Past Medical History Medical History (Updated 02/06/23 @ 15:06 by Kev Ricketts MD) Chronic disease anemia CKD (chronic kidney disease) Diabetes DVT (deep venous thrombosis) HTN (hypertension) Microscopic polyangiitis Neuropathy, peripheral Family History Family History Mother Acute myocardial infarction Hyperlipemia, mixed Hypertension Father Acute myocardial infarction Hyperlipemia, mixed Hypertension Sibling Diabetes mellitus Hyperlipemia, mixed Hypertension Sibling Small cell lung cancer Social History Social History (Updated 02/06/23 @ 09:44 by Jordana Haskins MD) Social History: Has 4 great grandchildren Smoking packs per day: 1 Smoking cigarettes per day: 20.0 Years smoked: 38 Smoking pack-years: 38.00 Smoking status: Former smoker Tobacco type: cigarettes Smoking end date: 03/31/11 Alcohol intake: never Substance use: never Substance use type: does not use Lack of Transportation: No Lack of Food: Never True Current Housing: I Have Housing Concerned About Future Housing: No Difficulty Paying Gas/Electric Bills: No Difficulty Paying for Meds: No Currently Unemployed: No Living arrangem
--- NOTE | 2023-02-06 16:39 | PM.IMPN ---
Progress Note: A&P Assessment and Plan (1) Melena: Code(s): K92.1 - Melena Status: Acute Assessment and Plan: Patient with diarrhea and dark stools. Had a colonoscopy last year elsewhere with polypectomy. He has a hx of bleeding duodenal ulcer in 2018. Hgb 11.5 on admisison hgb stable at 10.9 today. GI consulted and appreciate their input. Protonix added ASA and Eliquis on hold. EGD planned for tomorrow. (2) Hematuria: Code(s): R31.9 - Hematuria, unspecified Status: Acute Assessment and Plan: Likely secondary to anticoagulation but consider related to MPA since now with JACQUELYN. Consider also related to lower urinary system such as bladder (ex-smoker) or BPH (has had complaints of slow stream) Hematuria has stopped at this point CT scan showing moderate prostamegaly. ADEN showing medical renal disease and mild wall thickening of the urinary bladder. Continue to monitor Nephrology consulted and appreciate their input. Consider urology consult (3) Acute kidney injury superimposed on CKD: Code(s): N17.9 - Acute kidney failure, unspecified; N18.9 - Chronic kidney disease, unspecified Status: Acute Assessment and Plan: Cr 3.1. Baseline Cr 1.8-2.4 range. Likely he has pre renal azotemia. Lasix, potassium and irbesartan on hold. Nephrology consulted Cr trending down. Still with low serum bicarb. Add oral bicarb. (4) Chronic disease anemia: Code(s): D63.8 - Anemia in other chronic diseases classified elsewhere Status: Acute Assessment and Plan: Patient has chronic anemia. Hgb low but stable in the 10-11 range. Follow HH for stability (5) Granulomatosis with polyangiitis: Code(s): M31.30 - Ivan's granulomatosis without renal involvement Status: Acute Assessment and Plan: As above. CT Abdomen/pelvis showing chronic interstitial lung disease (NSIP). CXR in February 2022 showing diffuse lung disease. Suspect this is chronic and related to MPA. Continue to monitor. 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 Li colored without clots. Not had this since his diagnosis of MPA. Also having diarrhea with dark stools. He is on anticoagulation for DVT diagnosed in 2017. No NSAIDs. Chronic anemia and followed by hematology. Exam Narrative: AF 98.7 153/54 77 16 99% ra Gen - NARD Chest - CTA bilaterally, nml RR CV - RRR S1/S2 Abd - Soft, obese, NT Ext - No pedal edema Psych - Nml mood and affect Skin - Warm and dry Objective Data Vital Signs Vital Signs: Vital Signs - 24 hr 02/05/23 19:09 02/05/23 20:12 02/05/23 21:09 Temperature 98.7 F Pulse Rate 81 81 79 Respiratory Rate 20 23 H 22 H Blood Pressure 143/57 H 138/54 L 138/58 L Pulse Oximetry 93 95 96 Oxygen Delivery Room Air 02/05/23 23:00 02/05/23 23:49 02/05/23 23:49 Temperature Pulse Rate 80 113 H 84 Respiratory Rate 19 Blood Pressure 116/96 H 177/87 H 149/59 H Pulse Oximetry 97 Oxygen Delivery 02/05/23 23:49 02/06/23 01:06 02/06/23 02:37 Temperature Pulse Rate 89 86 88 Respiratory Rate Blood Pressure 158/66 H 170/62 H 148/61 H Pulse Oximetry 94 97 Oxygen Delivery 02/06/23 04:02 02/06/23 05:53 02/06/23 07:13 Temperature Pulse Rate 80 87 80 Respiratory Rate 19 12 18 Blood Pressure 157/68 H 143/70 H 145/79 H Pulse Oximetry 94 99 98 Oxygen Delivery 02/06/23 10:10 02/06/23 07:17 02/06/23 08:10 Temperature Pulse Rate 70 81 92 Respiratory Rate 18 14 22 H Blood Pressure 187/74 H Pulse Oximetry 99 Oxygen Delivery 02/06/23 08:15 02/06/23 08:
--- NOTE | 2023-02-06 16:39 | ADMGEN ---
This patient, Britton Nielsen Sr., was admitted to IMU Room 212-01 on 02/06/23 at 1615. Patient/family oriented to hospital policies and general routines including ID bracelet, bed and alarms, visiting hours, pain management, procedures, bathroom and other care routines, personal items, smoking policy, room service/diet, and visiting hours. Information on how to activate the Rapid Response Team has been discussed. Patient/Family are encouraged to report perceived risks to care and to ask questions if they do not understand what they are told or what they should do.
[2023-02-06 18:50] LABS: Creatinine Urine 82.2 mg/dL; Total Protein Urine Random 47 mg/dL; Ur Ttl Prot Creatinine Ratio 0.57 mg/mg (0-0.20); Urea Random Urine 699 MG/DL
[2023-02-06 18:52] LABS: Sodium Urine Random 74 meq/L
[2023-02-06 20:28] LABS: Hematocrit 33.3 % (42.0-52.0); Hemoglobin 10.8 g/dL (14.0-18.0)
[2023-02-06] MEDS: PANTOPRAZOLE SODIUM IV 40 MG VIAL IV PUSH (20:35)
[2023-02-06] MEDS: LABETALOL HCL 100 MG TABLET PO (20:35)
[2023-02-06 20:43] LABS: Toxigenic C. Diff NEGATIVE (NEGATIVE)
[2023-02-06 20:57] LABS: Eosinophil Urine None Seen % (None Seen); Urine Eos QC 2nd Tech Confirmed
[2023-02-07] VITALS (18 sets, daily range): BP systolic 110–163; BP diastolic 42–60; PULSE 61–73; RESP 18–24; TEMP 36.1–36.7; O2SAT 93–100
[2023-02-07] MEDS: LACTATED RINGERS 1,000 ML 125 ML IV CONT (04:18)
[2023-02-07 05:04] LABS: Basophils Percent Auto 0.3 % (0.2-1.2); Eosinophils Absolute Auto 0.1 K/mm3 (0-0.3); Eosinophils Percent Auto 1.6 % (0-4.4); Hematocrit 34.1 % (42.0-52.0); Hemoglobin 10.9 g/dL (14.0-18.0); Immature Granulocyte Absolute 0.02 K/mm3 (0.00-0.031); Immature Granulocyte Percent A 0.5 % (0-0.5); Lymphocytes Absolute Auto 0.74 K/mm3 (0.9-3.2); Lymphocytes Percent Auto 19.8 % (18.3-44.2); Mean Corpuscular Hemoglobin 29.5 pg (26-34); Mean Corpuscular Volume 92.2 fl (80-100); Mean Platelet Volume 10.1 fl (7.4-10.4); Monocytes Absolute Auto 0.3 K/mm3 (0.1-0.6); Monocytes Percent Auto 7.5 % (2.6-8.5); Neutrophils Absolute Auto 2.6 K/mm3 (1.3-6.7); Neutrophils Percent Auto 70.3 % (45.5-73.1); Platelet Count Result 112 k/mm3 (150-375); Red Cell Distribution Width 14.4 % (11.5-14.5); White Blood Count 3.7 K/mm3 (4.5-10.0)
[2023-02-07 05:15] LABS: Alanine Aminotransferase 23 U/L (6-50); Alkaline Phosphatase 77 U/L (38-126); Anion Gap 12 mmol/L (8-16); Aspartate Amino Transferase 33 U/L (17-59); Bilirubin,Total 0.9 mg/dL (0.2-1.3); Blood Urea Nitrogen 42 mg/dL (9-20); Calcium 8.4 mg/dL (8.4-10.2); Carbon Dioxide 18 mmol/L (22-30); Chloride 109 mmol/L (98-107); Creatine Kinase 538 U/L (55-170); Estimated CRCL calculation 31 ml/min; Estimated Glomerular Filt Rate 28; Glucose 74 mg/dL (65-110); Magnesium 1.7 mg/dL (1.6-2.3); Phosphorus 3.2 mg/dL (2.5-4.5); Potassium 4.3 mmol/L (3.4-5.0); Sodium 139 mmol/L (137-145)
[2023-02-07 05:20] LABS: Complement C3 104 mg/dL (88-165)
[2023-02-07] MEDS: SODIUM BICARBONATE TAB 650 MG TABLET PO (08:42)
[2023-02-07] MEDS: PANTOPRAZOLE SODIUM IV 40 MG VIAL IV PUSH (08:42)
[2023-02-07] MEDS: ATORVASTATIN 40 MG TABLET PO (08:42)
[2023-02-07] MEDS: LABETALOL HCL 100 MG TABLET PO (08:42)
[2023-02-07] MEDS: amLODIPine BESYLATE 5 MG TABLET PO (08:44)
--- NOTE | 2023-02-07 10:12 | PM.CNNEP ---
Assessment and Plan Assessment and plan (1) JACQUELYN (acute kidney injury): Code(s): N17.9 - Acute kidney failure, unspecified Status: Acute Assessment and Plan: improvement noted by trend of labs since admission evaluation to date: renal ultrasound c/w CKD urine eosinophils negative urine electrolytes non-prerenal UA noted -- blood and protein noted follow trend of repeat labs and UOP (2) Chronic kidney disease, stage 4 (severe): Code(s): N18.4 - Chronic kidney disease, stage 4 (severe) Status: Chronic Assessment and Plan: baseline creatinine runs ~ 1.8 - 2.5mg/dl in the last few years this causes him to fluctuate between CKD stage 3b and stage 4 thought to be leftovers from previous JACQUELYN/ARF secondary to biopsy proven microscopic polyangiitis follows with Dr. Barnard with ongoing CKD management (3) Microscopic polyangiitis: Code(s): M31.7 - Microscopic polyangiitis Status: Acute Assessment and Plan: biopsy proven has been in remission for the last few years -- off immunosuppressive therapy resultant CKD is due to this (4) Melena: Code(s): K92.1 - Melena Status: Acute Assessment and Plan: as noted by history GI recommendations noted -- noted plans for EGD today follow trend of H/H holding anticoagulation (5) Hematuria: Code(s): R31.9 - Hematuria, unspecified Status: Acute Assessment and Plan: seems to have resolved presumably due to anticoagulation urine culture pending however, given hx of MPA, check ANCA noted moderate proteinuria (but this could just be related to known CKD) continue supportive therapy I will continue follow patient with you while he remains hospitalized make further recommendations as needed. Thank you for allowing me to participate in the care of this patient. History of Present Illness Reason for Consult Consult date: 02/07/23 Reason for consult: acute renal failure (on chronic kidney disease) Chief Complaint Chief complaint: Hematuria,Melena,JACQUELYN on CKD History of Present Illness Narrative: The patient is a 67-year-old male with a past medical history as outlined below who presented to [facility] Emergency room at the behest of his culture manager for further evaluation of intermittent abdominal pain in association with hematuria. The patient reports that the abdominal pain is been going on for last 24-48 hours and seems to be more associated when he has a bowel movement. He also has noted dark tarry stools in association with myalgias and chills but no overt fevers. He denies any nausea vomiting or diarrhea. Initially, he thought his symptoms were due to a cold virus and he was prescribed oral azithromycin for treatment of this issue. Along with the a for mention abdominal pain and dark tarry stools as well as myalgias, he also noted gross hematuria. he has had hematuria before and at that time, he also had acute kidney injury/acute renal failure and subsequent workup and evaluation at that time demonstrated his known history of microscopic polyangiitis (biopsy-proven). Given these constellation of symptoms, his primary culture manager, Dr. Gilmer Barnard, recommended he come to the ER for further assessment. Workup and evaluation emergency room demonstrated the patient to be hemodynamically stable and in no acute distress. He was able to provide another urine sample which demonstrated gross hematuria in association with clots. Furthermore, routine blood tests demonstrated anemia which is a chronic issue but he was also discovered to be guaiac-positive. His blood test also demonstrated acute kidney injury on top of his baseline kidney disease but with no critical electrolyte abnormalities although he did have a mild metabolic acidosis. He was subsequently admitted to the hospital for further workup and evaluation of these issues along with gentle IV fluid hyd
--- NOTE | 2023-02-07 10:12 | P.CONNP_ITS ---
Assessment and Plan Assessment and plan (1) JACQUELYN (acute kidney injury): Code(s): N17.9 - Acute kidney failure, unspecified Status: Acute Assessment and Plan: * improvement noted by trend of labs since admission * evaluation to date: * renal ultrasound c/w CKD * urine eosinophils negative * urine electrolytes non-prerenal * UA noted -- blood and protein noted * follow trend of repeat labs and UOP (2) Chronic kidney disease, stage 4 (severe): Code(s): N18.4 - Chronic kidney disease, stage 4 (severe) Status: Chronic Assessment and Plan: * baseline creatinine runs ~ 1.8 - 2.5mg/dl in the last few years * this causes him to fluctuate between CKD stage 3b and stage 4 * thought to be leftovers from previous JACQUELYN/ARF secondary to biopsy proven microscopic polyangiitis * follows with Dr. Barnard with ongoing CKD management (3) Microscopic polyangiitis: Code(s): M31.7 - Microscopic polyangiitis Status: Acute Assessment and Plan: * biopsy proven * has been in remission for the last few years -- off immunosuppressive therapy * resultant CKD is due to this (4) Melena: Code(s): K92.1 - Melena Status: Acute Assessment and Plan: * as noted by history * GI recommendations noted -- noted plans for EGD today * follow trend of H/H * holding anticoagulation (5) Hematuria: Code(s): R31.9 - Hematuria, unspecified Status: Acute Assessment and Plan: * seems to have resolved * presumably due to anticoagulation * urine culture pending * however, given hx of MPA, check ANCA * noted moderate proteinuria (but this could just be related to known CKD) * continue supportive therapy I will continue follow patient with you while he remains hospitalized make further recommendations as needed. Thank you for allowing me to participate in the care of this patient. History of Present Illness Reason for Consult Consult date: 02/07/23 Reason for consult: acute renal failure (on chronic kidney disease) Chief Complaint Chief complaint: Hematuria,Melena,JACQUELYN on CKD History of Present Illness Narrative: The patient is a 67-year-old male with a past medical history as outlined below who presented to [facility] Emergency room at the behest of his regroover for further evaluation of intermittent abdominal pain in association with hematuria. The patient reports that the abdominal pain is been going on for last 24-48 hours and seems to be more associated when he has a bowel movement. He also has noted dark tarry stools in association with myalgias and chills but no overt fevers. He denies any nausea vomiting or diarrhea. Initially, he thought his symptoms were due to a cold virus and he was prescribed oral azithromycin for treatment of this issue. Along with the a for mention abdominal pain and dark tarry stools as well as myalgias, he also noted gross hematuria. he has had hematuria before and at that time, he also had acute kidney injury/acute renal failure and subsequent workup and evaluation at that time demonstrated his known history of microscopic polyangiitis (biopsy-proven). Given these constellation of symptoms, his primary regroover, Dr. Gilmer Barnard, recommended he come to the ER for further assessment. Workup and evaluation emergency room demonstrated the patient to be hemodynamically stable and in no acute distress. He was able to provide another urine sample which demonstrated gross hematuria in association with clots. Furthermore, routine blood tests demonstrated anemia
--- NOTE | 2023-02-07 12:35 | PC.NURSE ---
To GI Lab per [ sarkiser], IV [ fluids stopped]. Report given to [ Litzy]. Family at bedside
[2023-02-07] MEDS: LACTATED RINGERS 1,000 ML 150 ML IV CONT (12:52)
--- NOTE | 2023-02-07 14:10 | PC.NURSE ---
Returned from GI Lab via stretcher. Family at bedside
--- NOTE | 2023-02-07 16:17 | PM.DS ---
DS: Admitting Diagnosis Discharge Date 02/07/23 Admitting Diagnosis Hematuria DS: Discharge Diagnosis Discharge Diagnosis (1) Melena: Code(s): K92.1 - Melena Status: Acute (2) Hematuria: Code(s): R31.9 - Hematuria, unspecified Status: Acute (3) Acute kidney injury superimposed on CKD: Code(s): N17.9 - Acute kidney failure, unspecified; N18.9 - Chronic kidney disease, unspecified Status: Acute (4) Chronic disease anemia: Code(s): D63.8 - Anemia in other chronic diseases classified elsewhere Status: Acute (5) Granulomatosis with polyangiitis: Code(s): M31.30 - Ivan's granulomatosis without renal involvement Status: Acute DS: Summary Hospital Course Reason for hospitalization: 67yo male with 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 Please see H&P for details. Hospital Course: Patient presents with diarrhea and dark stools. He had a colonoscopy last year elsewhere with polypectomy. He has a hx of bleeding duodenal ulcer in 2018. Hgb 11.5 on admission and remained stable. ASA and Eliquis was held.GI consulted and appreciate their input. EGD showing Grade I reflux esophagitis in the distal esophagus. Stomach and duodenum was normal. Biopsy taken for Hpylori. GI recommended Protonix 40mg daily. He also had hematuria. Likely secondary to anticoagulation but consider related to MPA since also with JACQUELYN. Cr 3.1 on admission. Baseline Cr 1.8-2.4 range. Likely he has pre renal azotemia. Lasix, potassium and irbesartan were held. Nephrology consulted. Cr trended down to 2.3. Had low serum bicarb and oral bicarb added. Consider MPA but also related to lower urinary system such as bladder (ex-smoker) or BPH (has had complaints of slow stream). Hematuria has stopped on its own. CT scan abdomen and pelvis showing no acute findings but did show moderate prostamegaly. ADEN showing medical renal disease and mild wall thickening of the urinary bladder. Patient with known granulomatosis with polyangiitis. CT Abdomen/pelvis showing chronic interstitial lung disease (NSIP). CXR in February 2022 showing diffuse lung disease. Suspect this is chronic and related to MPA. Plan for patient to follow up with pulmonary after discharge. Overall, nephrology felt not likely related to MPA flare given how quickly his symptoms resolved. They will consider sending patient to see urology. Discussed with nephrology. Bela overall did well and was able to be discharged home on 02/07/23. Status at Discharge Cognitive/behavioral status at discharge: stable Time Spent with Patient Time attestation: Total time spent providing and/or coordinating discharge services:36 minutes Time spent: Greater than 30 minutes Exam Narrative: AF 97.1 151/55 65 20 97% ra Gen - NARD Chest -bibasilar inspiratory crackles left worse than right. CV - RRR S1/S2. Telemetry showing no significant dysrhythmias Abd - Soft, obese, NT Ext - No pedal edema Psych - Nml mood and affect Skin - Warm and dry DS: Data Data Completed and Pending Pending studies at discharge: Pending at discharge 02/07/23 13:39 Surgical [PTH] Routine Labs on day of discharge: Labs from last 24 hours 02/07/23 02/06/23 02/06/23 04:33 20:23 18:28 WBC 3.7 L RBC 3.70 L Hgb 10.9 L 10.8 L Hct 34.1 L 33.3 L MCV 92.2 MCH 29.5 MCHC 32.0 RDW 14.4 Plt Count 112 L MPV 10.1 Immature Gran % (Auto) 0.5 Neut % (Auto) 70.3 Lymph % (Auto) 19.8 Frio % (Auto) 7.5 Eos % (Auto) 1.6 Baso % (Auto) 0.3 Lymph # (Auto) 0.74 L Frio # (Auto) 0.3 Eos # (Auto) 0.1 Baso # (Auto) 0.0 Abs Immat Gran (auto) 0.02 Absolute Neuts (auto) 2.6 Absolute Nucleated RBC 0.0 Nucleated RBC % 0.0 Sodium 139 Potassium 4.3 Chloride 109 H Carbon Dioxide 18 L Anion Gap 12
--- NOTE | 2023-02-10 06:30 | PC.NURSE ---
Stool and urine cultures show no growth. Dr. Tad daniels.
--- NOTE | 2023-02-11 09:40 | PC.NURSE ---
EGD biopsy- Squamocolumnar mucosa with inflammation. No Intestinal metaplasia. Dr. Mishra aware of findings.
[2023-02-12 03:43] LABS: ANCA Screen Negative (Negative)
--- NOTE | 2023-02-13 09:31 | PC.NURSE ---
ANCA is negative.Dr. Tad daniels.
== END 2023-02-07 16:55 | disposition home or self-care (01) | DRG 378 ==
LOC: ANHED 21:10 → ANHIMU 22:48
PROVIDERS: Emergency Medicine; Internal Medicine Gastroenterology; Internal Medicine Nephrology; Admitting Provider Internal Medicine; Emergency Provider Student in an Organized Health Care Education/Training Program; PCP Internal Medicine; Visit Provider Internal Medicine
PROC: 0DJ08ZZ Inspection of Upper Intestinal Tract, Via Natural or Artificial Opening Endoscopic (ICD-10-PCS; CPT 43235; principal; 2023-02-07 14:30)
DX: K92.1 Melena (principal); M31.30 Wegener's granulomatosis without renal involvement; N17.9 Acute kidney failure, unspecified; M31.7 Microscopic polyangiitis; N18.4 Chronic kidney disease, stage 4 (severe); K20.90 Esophagitis, unspecified without bleeding; R31.9 Hematuria, unspecified; D63.1 Anemia in chronic kidney disease; E11.42 Type 2 diabetes mellitus with diabetic polyneuropathy; E11.22 Type 2 diabetes mellitus with diabetic chronic kidney disease; I12.9 Hypertensive chronic kidney disease with stage 1 through stage 4 chronic kidney disease, or unspecified chronic kidney disease; J84.89 Other specified interstitial pulmonary diseases; Z79.82 Long term (current) use of aspirin; Z79.01 Long term (current) use of anticoagulants; Z86.718 Personal history of other venous thrombosis and embolism; Z87.891 Personal history of nicotine dependence
CPT/HCPCS: 36415; 74174; 76775; 80048; 80053; 81001; 81050; 82274; 82550; 82570; 82728; 83540; 83550; 83735; 84100; 84156; 84300; 84540; 85014; 85018; 85025; 85610; 85730; 85999; 86036; 86160; 86850; 86900; 86901; 87045; 87081; 87086; 87427; 87449; 87493; 88305; 99285; A9270; C9113; J2704; J7120; Q9967

== ENCOUNTER 2023-02-10 09:35 | Outpatient (CLI) | payer MEDICARE, OTHER, SELFPAY ==
[2023-02-10 10:26] LABS: Appearance Urine Clear (Clear); Bacteria Urine None Seen /hpf; Bilirubin Urine Negative (Negative); Blood Urine Trace (Negative); Color Urine Yellow (Yellow); Glucose Urine UA Negative (Negative); Ketones Urine Negative (Negative); Leukocyte Esterase Ur Negative LEU/UL (NEGATIVE); Nitrate Urine Negative (Negative); Non Pathogenic Casts 0-2; Protein Urine 1+ mg/dL (Negative); RBC Urine 0-2 /hpf (0-2); Specific Grav Ur 1.016 (1.001-1.035); Squamous Epithelial Cell Urine None seen /hpf (Few); Urobilinogen Urine 0.2 mg/dL (<2.0); WBC Urine 0-5 /hpf (0-3); pH Urine 5.5 (5.0-9.0)
[2023-02-10 10:36] LABS: Creatinine Urine 114.1 mg/dL; Total Protein Urine Random 62 mg/dL; Ur Ttl Prot Creatinine Ratio 0.54 mg/mg (0-0.20)
[2023-02-10 10:47] LABS: Add Urine Microscopic? NO
[2023-02-10 11:34] LABS: Hematocrit 33.4 % (42.0-52.0); Hemoglobin 10.3 g/dL (14.0-18.0); Mean Corpuscular HGB Conc 30.8 g/dl (32-36); Mean Corpuscular Hemoglobin 28.9 pg (26-34); Mean Corpuscular Volume 93.8 fl (80-100); Mean Platelet Volume 10.8 fl (7.4-10.4); Platelet Count Result 138 k/mm3 (150-375); Red Blood Count 3.56 M/mm3 (4.6-6.20); Red Cell Distribution Width 14.5 % (11.5-14.5); White Blood Count 3.9 K/mm3 (4.5-10.0)
[2023-02-10 11:48] LABS: Albumin Level 4.2 g/dL (3.5-5.1); Anion Gap 12 mmol/L (8-16); Blood Urea Nitrogen 28 mg/dL (9-20); Calcium 8.4 mg/dL (8.4-10.2); Carbon Dioxide 20 mmol/L (22-30); Chloride 110 mmol/L (98-107); Estimated Glomerular Filt Rate 32; Glucose 65 mg/dL (65-110); Phosphorus 2.2 mg/dL (2.5-4.5); Potassium 4.6 mmol/L (3.4-5.0); Sodium 142 mmol/L (137-145)
[2023-02-10 11:59] LABS: Parathyroid Intact 222.4 pg/mL (7.5-53.5)
[2023-02-13 21:12] LABS: ANCA Screen Negative (Negative)
== END 2023-02-10 09:36 | disposition home or self-care (01) ==
PROVIDERS: PCP Internal Medicine; Referring Provider Internal Medicine; Visit Provider Internal Medicine Nephrology
DX: R31.9 Hematuria, unspecified (principal); M31.30 Wegener's granulomatosis without renal involvement; N18.4 Chronic kidney disease, stage 4 (severe); E21.1 Secondary hyperparathyroidism, not elsewhere classified; E78.5 Hyperlipidemia, unspecified
CPT/HCPCS: 36415; 80069; 81003; 82306; 82570; 83970; 84156; 85027; 86036; 87086

== ENCOUNTER 2023-04-03 12:30 | Outpatient (CLI) | payer MEDICARE, OTHER, SELFPAY ==
--- NOTE | ~2023-04-03 | CT_ITS ---
EXAMINATION: CT abdomen pelvis wo con DATE: 04/03/2023 13:40 INDICATION: Gross hematuria. TECHNIQUE: Computed tomography (CT) of the abdomen and pelvis was performed without intravenous contr ast. Automated exposure control and iterative reconstruction technique were employed. The dose-length product was 1162.00 mGy-cm. COMPARISON: CT abdomen and pelvis 02/05/2023 FINDINGS: The visualized portions of the lung bases demonstrate groundglass opacities, septal thicken ing, and bronchiectasis, consistent with chronic interstitial lung disease. No pleural effusion. The heart size is normal. There are coronary artery calcifications. There are changes of coronary artery bypass grafting. No pericardial effusion. The liver, gallbladder, spleen, pancreas, and adrenal gland s are normal. There are embolization coils in the area of gastroduodenal artery. The kidneys are norm al. There is calcified atherosclerosis of the aorta and many of the other arteries. The prostate is m oderately enlarged. There are bilateral inguinal hernias containing fat. There is diverticulosis of t he colon without evidence of diverticulitis. There are no dilated loops of bowel. The appendix is not visualized. There are no pathologically enlarged lymph nodes. There is no free intraperitoneal fluid . There are chronic bilateral L5 priors defects. There is 10 mm anterolisthesis of L5 on S1. There is moderate lumbar spondylosis. There are bridging endplate osteophytes at multiple levels in the spine , consistent with diffuse idiopathic skeletal hyperostosis (DISH). IMPRESSION: 1. No urolithiasis. 2. Chronic interstitial lung disease. Reviewed, dictated and finalized at location E. P SHOOTER
--- NOTE | ~2023-04-03 | CT_ITS ---
EXAMINATION:CT diagnostic chest wo con DATE: 04/03/2023 13:23 INDICATION: Interstitial pulmonary disease, unspecified. TECHNIQUE: Computed tomography (CT) of the chest was performed without intravenous contrast. Automate d exposure control and iterative reconstruction technique were employed. The dose-length product (DLP ) was 626.70 mGy-cm. COMPARISON: CT abdomen and pelvis 02/05/2023 FINDINGS: There are widespread groundglass opacities and septal thickening in the lungs. There is mil d bronchiectasis in the inferior lungs. There is mild honeycombing in the upper lobes. No pleural eff usion. The heart size is normal. There are coronary artery calcifications. There are changes of coron katty artery bypass grafting. No pericardial effusion. There are embolization coils in the area of santos roduodenal artery. There are bridging endplate osteophytes at multiple levels in the spine, consisten t with diffuse idiopathic skeletal hyperostosis (DISH). IMPRESSION: 1. Chronic interstitial lung disease in a pattern of nonspecific interstitial pneumonia (NSIP) versus usual interstitial pneumonia (UIP). Reviewed, dictated and finalized at location E. [employer] ADMINISTRATIVE SERVICES OFFICER IMPRESSION: 1. Chronic interstitial lung disease in a pattern of nonspecific interstitial p neumonia (NSIP) versus usual interstitial pneumonia (UIP).
[2023-04-03 13:14] LABS: Estimated Glomerular Filt Rate 19
== END 2023-04-03 12:31 | disposition home or self-care (01) ==
PROVIDERS: PCP Internal Medicine; Visit Provider Nurse Practitioner Family
DX: R31.0 Gross hematuria (principal); J84.9 Interstitial pulmonary disease, unspecified; R91.8 Other nonspecific abnormal finding of lung field
CPT/HCPCS: 71250; 74176

== ENCOUNTER 2023-04-09 12:17 | Outpatient (CLI) | payer MEDICARE, OTHER, SELFPAY ==
[2023-04-09 12:55] VITALS: PULSE 59; O2SAT 95
[2023-04-09 13:00] VITALS: PULSE 70; O2SAT 86
[2023-04-09 13:05] VITALS: PULSE 69; O2SAT 87
[2023-04-09 13:10] VITALS: PULSE 62; O2SAT 93
[2023-04-09 13:25] VITALS: PULSE 63; O2SAT 92
--- NOTE | 2023-04-09 13:53 | HOMEO2EVAL ---
Evaluation was performed at [facility] Home Oxygen Evaluation RC: Home Oxygen (O2) Evaluation Start: 04/09/23 13:49 Freq: Status: Active Protocol: RPE Activity Type Activity Date Activity User E-sign Co-sign Detail Recorded Client Recorded Date Recorded By Document 04/09/23 12:55 PK [email or web address] 04/09/23 13:53 PK Document 04/09/23 13:00 PK [email or web address] 04/09/23 13:53 PK Document 04/09/23 13:05 [email or web address] 04/09/23 13:53 PK Document 04/09/23 13:10 [email or web address] 04/09/23 13:53 PK Document 04/09/23 13:25 [email or web address] 04/09/23 13:53 PK 04/09/23 04/09/23 04/09/23 12:55 13:00 13:05 Home O2 Evaluation [Oxygen] -Test Phase Resting Exercise Exercise -Oxygen Delivery Room Air Room Air Nasal Cannula -Oxygen Flow Rate (L/min) 1 [Pulse Oximetry] -Pulse Oximetry (90-100 %) 95 86 L 87 L [Pulse Rate] -Pulse Rate (60-100 beats/min) 59 L 70 69 [Charges] -Evaluation Charges O2 Evaluation by Pulmonary 04/09/23 04/09/23 13:10 13:25 Home O2 Evaluation [Oxygen] -Test Phase Exercise Resting -Oxygen Delivery Nasal Cannula Room Air -Oxygen Flow Rate (L/min) 2 [Pulse Oximetry] -Pulse Oximetry (90-100 %) 93 92 [Pulse Rate] -Pulse Rate (60-100 beats/min) 62 63 [Charges] -Evaluation Charges
--- NOTE | 2023-04-10 13:13 | WPDPFTINT ---
PFT Procedure Performed PFT Procedure Performed Spirometry with Pre/Post Bronchodilator Plethysmography (Lung Vol) Diffusing Cap (DLCO) Flow Vol Loop PFT Interpretation This is a pulmonary function test with pre and post-bronchodilator spirometry, plethysmography and diffusing capacity. The test was performed and results interpreted in accordance with the 2019 and 2005 ATS/ERS Task Force guidelines respectively using the Global Lung Function Initiative-2012 reference equations. Patient demonstrated good effort and cooperation. Reproducibility criteria were met. The quality of the pre bronchodilator spirometry maneuver was Grade A and post bronchodilator spirometry maneuver was Grade A. Findings: Spirometry: The contour the inspiratory and expiratory flow tracing are normal. The pre bronchodilator FVC is 2.48 L, 69% predicted. The pre bronchodilator FEV1 is 2.16 L, 78% predicted. The pre bronchodilator FEV1: FVC ratio was 87%. The post bronchodilator FVC is 2.55 L, representing a 3% increase. The post bronchodilator FEV1 is 2.21 L, representing a 3% increase. The post bronchodilator FEV1: FVC ratio is 87%. Plethysmography: The total lung capacity is 3.17 L, 53% predicted. The functional residual capacity is 1.05 L, 34% predicted. The residual volume is 0.61 L, 29% predicted. Diffusing capacity: The diffusing capacity unadjusted for hemoglobin and carboxyhemoglobin is 7.7, 32% predicted. The diffusing capacity adjusted for alveolar volume is 2.11, 50% predicted. In comparison to previous pulmonary function testing in which only pre bronchodilator spirometry was performed on 05/22/2020 the pre bronchodilator FVC has decreased from 2.95 L to 2.48 L. The pre bronchodilator FEV1 is unchanged from 2.47 L to 2.16 L. The total lung capacity is unchanged from 3.53 L to 3.17 L. The functional residual capacity is unchanged from 1.17 L to 1.05 L. The residual volume is unchanged from 0.57 L to 0.61 L. The diffusing capacity unadjusted for hemoglobin and carboxyhemoglobin is decreased from 9.9 to 7.7. The diffusing capacity adjusted for alveolar volume is decreased from 2.58 to 2.11. Impression: There is a mild restrictive ventilatory abnormality with a normal FEV1. The spirometry is normal without evidence of an obstructive abnormality. There is no significant improvement after inhaling a single dose of albuterol. The diffusing capacity unadjusted for hemoglobin and carboxyhemoglobin is severely decreased and remains moderately decreased when adjusted for alveolar volume. In comparison to previous pulmonary function testing in which only pre bronchodilator spirometry was performed on 05/22/2020 there has been a greater than anticipated time dependent increase in the FVC, and diffusing capacity with no significant change in the FEV1, total lung capacity, functional residual capacity and residual volume. Clinical correlation is recommended.
== END 2023-04-09 12:18 | disposition home or self-care (01) ==
LOC: ANHPFT 12:19
PROVIDERS: PCP Internal Medicine; Visit Provider Internal Medicine Pulmonary Disease
DX: J98.4 Other disorders of lung (principal)
CPT/HCPCS: 94618

== ENCOUNTER 2023-04-10 10:51 | Outpatient (CLI) | payer MEDICARE, OTHER, SELFPAY ==
[2023-04-10 11:38] LABS: Basophils Percent Auto 0.5 % (0.2-1.2); Eosinophils Absolute Auto 0.2 K/mm3 (0-0.3); Eosinophils Percent Auto 4.3 % (0-4.4); Hematocrit 35.2 % (42.0-52.0); Hemoglobin 10.8 g/dL (14.0-18.0); Immature Granulocyte Absolute 0.03 K/mm3 (0.00-0.031); Immature Granulocyte Percent A 0.5 % (0-0.5); Lymphocytes Absolute Auto 0.76 K/mm3 (0.9-3.2); Lymphocytes Percent Auto 13.5 % (18.3-44.2); Mean Corpuscular HGB Conc 30.7 g/dl (32-36); Mean Corpuscular Hemoglobin 29.2 pg (26-34); Mean Corpuscular Volume 95.1 fl (80-100); Mean Platelet Volume 9.2 fl (7.4-10.4); Monocytes Absolute Auto 0.4 K/mm3 (0.1-0.6); Monocytes Percent Auto 7.8 % (2.6-8.5); Neutrophils Absolute Auto 4.1 K/mm3 (1.3-6.7); Neutrophils Percent Auto 73.4 % (45.5-73.1); Platelet Count Result 146 k/mm3 (150-375); Red Cell Distribution Width 15.5 % (11.5-14.5); White Blood Count 5.6 K/mm3 (4.5-10.0)
[2023-04-10 11:52] LABS: Rheumatoid Factor < 12.0 IU/ML (<12)
[2023-04-10 11:53] LABS: CRP < 0.5 mg/dL (<1.0); Creatine Kinase 95 U/L (55-170)
[2023-04-10 12:13] LABS: Erythrocyte Sedimentation Rate 103 mm/hr (0-20)
[2023-04-10 15:13] LABS: Alanine Aminotransferase 15 U/L (6-50); Albumin Level 3.9 g/dL (3.5-5.1); Alkaline Phosphatase 93 U/L (38-126); Anion Gap 10 mmol/L (8-16); Aspartate Amino Transferase 20 U/L (17-59); Bilirubin,Total 0.7 mg/dL (0.2-1.3); Blood Urea Nitrogen 36 mg/dL (9-20); Calcium 8.8 mg/dL (8.4-10.2); Carbon Dioxide 26 mmol/L (22-30); Chloride 104 mmol/L (98-107); Estimated Glomerular Filt Rate 28; Glucose 109 mg/dL (65-110); Potassium 5.3 mmol/L (3.4-5.0); Sodium 140 mmol/L (137-145)
[2023-04-14 04:17] LABS: Immunoglobulin A 124 mg/dL (70-320); Immunoglobulin G 1287 mg/dL (600-1540); Immunoglobulin M 60 mg/dL (50-300)
[2023-04-15 00:50] LABS: Immunoglobulin G, Serum 1183 mg/dL (600-1540); Immunoglobulin G1 560 mg/dL (382-929); Immunoglobulin G2 483 mg/dL (241-700); Immunoglobulin G3 65 mg/dL (22-178); Immunoglobulin G4 50.4 mg/dL (4.0-86.0)
[2023-04-15 03:45] LABS: Aldolase 4.2 U/L (<=8.1)
[2023-04-15 23:59] LABS: Anti Cyclic Citrullinated Pept <16 Units (<20)
[2023-04-16 03:25] LABS: ANA Cascade Screen Negative (Negative)
[2023-04-16 10:30] LABS: ANCA Screen Negative (Negative)
[2023-04-17 09:09] LABS: Immunoglobulin E 3 kU/L (<=114)
[2023-04-28 14:13] LABS: Aspergillus fumigatus Negative
== END 2023-04-10 10:52 | disposition home or self-care (01) ==
PROVIDERS: PCP Internal Medicine; Visit Provider Internal Medicine Pulmonary Disease
DX: R06.09 Other forms of dyspnea (principal); R91.1 Solitary pulmonary nodule; J44.9 Chronic obstructive pulmonary disease, unspecified; J84.9 Interstitial pulmonary disease, unspecified
CPT/HCPCS: 36415; 36600; 80053; 82085; 82104; 82550; 82784; 82785; 82787; 85025; 85652; 86036; 86038; 86140; 86200; 86225; 86235; 86331; 86364; 86430; 86606; 86609

== ENCOUNTER 2023-05-23 07:33 | Outpatient (CLI) | payer MEDICARE, OTHER, SELFPAY ==
[2023-05-23 08:03] LABS: Hematocrit 35.9 % (42.0-52.0); Hemoglobin 11.6 g/dL (14.0-18.0); Mean Corpuscular HGB Conc 32.3 g/dl (32-36); Mean Corpuscular Volume 92.8 fl (80-100); Mean Platelet Volume 10.2 fl (7.4-10.4); Platelet Count Result 119 k/mm3 (150-375); Red Blood Count 3.87 M/mm3 (4.6-6.20); Red Cell Distribution Width 15.4 % (11.5-14.5); White Blood Count 6.6 K/mm3 (4.5-10.0)
[2023-05-23 08:14] LABS: Creatinine Urine 140.3 mg/dL; Total Protein Urine Random 10 mg/dL; Ur Ttl Prot Creatinine Ratio 0.07 mg/mg (0-0.20)
[2023-05-23 08:17] LABS: Albumin Level 4.1 g/dL (3.5-5.1); Anion Gap 10 mmol/L (8-16); Blood Urea Nitrogen 42 mg/dL (9-20); Calcium 8.5 mg/dL (8.4-10.2); Carbon Dioxide 18 mmol/L (22-30); Chloride 109 mmol/L (98-107); Estimated Glomerular Filt Rate 30; Glucose 148 mg/dL (65-110); Phosphorus 3.4 mg/dL (2.5-4.5); Sodium 137 mmol/L (137-145)
[2023-05-23 08:28] LABS: Parathyroid Intact 198.2 pg/mL (7.5-53.5)
[2023-05-28 22:29] LABS: ANCA Screen Negative (Negative)
== END 2023-05-23 07:34 | disposition home or self-care (01) ==
LOC: ANHLAB 07:35
PROVIDERS: PCP Internal Medicine; Visit Provider Internal Medicine Nephrology
DX: N18.4 Chronic kidney disease, stage 4 (severe) (principal)
CPT/HCPCS: 36415; 80069; 82570; 83970; 84156; 85027; 86036

== ENCOUNTER 2023-06-17 11:35 | Outpatient (CLI) | payer MEDICARE, OTHER, SELFPAY ==
[2023-06-20 20:59] LABS: Myeloperoxidase Ab 1.3 AI (<1.0)
== END 2023-06-17 11:36 | disposition home or self-care (01) ==
PROVIDERS: Internal Medicine; PCP Internal Medicine
DX: M31.7 Microscopic polyangiitis (principal)
CPT/HCPCS: 36415; 86036

== ENCOUNTER 2023-07-08 15:32 | Outpatient (CLI) | payer MEDICARE, OTHER, SELFPAY ==
[2023-07-08 16:20] LABS: Basophils Percent Auto 0.3 % (0.2-1.2); Eosinophils Absolute Auto 0.2 K/mm3 (0-0.3); Eosinophils Percent Auto 3.8 % (0-4.4); Hematocrit 33.7 % (42.0-52.0); Immature Granulocyte Absolute 0.03 K/mm3 (0.00-0.031); Immature Granulocyte Percent A 0.5 % (0-0.5); Lymphocytes Absolute Auto 0.76 K/mm3 (0.9-3.2); Lymphocytes Percent Auto 13.1 % (18.3-44.2); Mean Corpuscular HGB Conc 32.6 g/dl (32-36); Mean Corpuscular Hemoglobin 30.3 pg (26-34); Mean Corpuscular Volume 92.8 fl (80-100); Mean Platelet Volume 10.2 fl (7.4-10.4); Monocytes Absolute Auto 0.4 K/mm3 (0.1-0.6); Monocytes Percent Auto 7.2 % (2.6-8.5); Neutrophils Absolute Auto 4.4 K/mm3 (1.3-6.7); Neutrophils Percent Auto 75.1 % (45.5-73.1); Platelet Count Result 134 k/mm3 (150-375); Red Blood Count 3.63 M/mm3 (4.6-6.20); White Blood Count 5.8 K/mm3 (4.5-10.0)
== END 2023-07-08 15:33 | disposition home or self-care (01) ==
PROVIDERS: PCP Internal Medicine
DX: Z79.899 Other long term (current) drug therapy (principal)
CPT/HCPCS: 36415; 85025

== ENCOUNTER 2023-08-04 09:45 | Outpatient (CLI) | payer MEDICARE, OTHER, SELFPAY ==
[2023-08-04 10:49] LABS: Basophils Percent Auto 0.5 % (0.2-1.2); Eosinophils Absolute Auto 0.2 K/mm3 (0-0.3); Eosinophils Percent Auto 2.9 % (0-4.4); Hematocrit 35.4 % (42.0-52.0); Hemoglobin 11.4 g/dL (14.0-18.0); Immature Granulocyte Absolute 0.04 K/mm3 (0.00-0.031); Immature Granulocyte Percent A 0.6 % (0-0.5); Lymphocytes Absolute Auto 0.66 K/mm3 (0.9-3.2); Mean Corpuscular HGB Conc 32.2 g/dl (32-36); Mean Corpuscular Hemoglobin 30.5 pg (26-34); Mean Corpuscular Volume 94.7 fl (80-100); Mean Platelet Volume 10.5 fl (7.4-10.4); Monocytes Absolute Auto 0.4 K/mm3 (0.1-0.6); Monocytes Percent Auto 5.9 % (2.6-8.5); Neutrophils Absolute Auto 5.3 K/mm3 (1.3-6.7); Neutrophils Percent Auto 80.1 % (45.5-73.1); Platelet Count Result 128 k/mm3 (150-375); Red Blood Count 3.74 M/mm3 (4.6-6.20); Red Cell Distribution Width 14.6 % (11.5-14.5); White Blood Count 6.6 K/mm3 (4.5-10.0)
[2023-08-04 10:59] LABS: Albumin Level 4.4 g/dL (3.5-5.1); Anion Gap 12 mmol/L (4-12); Blood Urea Nitrogen 41 mg/dL (9-20); Calcium 8.7 mg/dL (8.4-10.2); Carbon Dioxide 17 mmol/L (22-30); Chloride 111 mmol/L (98-107); Estimated Glomerular Filt Rate 26; Glucose 109 mg/dL (65-110); Phosphorus 3.2 mg/dL (2.5-4.5); Potassium 4.5 mmol/L (3.4-5.0); Sodium 140 mmol/L (137-145)
[2023-08-04 11:01] LABS: Creatinine Urine 84.1 mg/dL; Total Protein Urine Random 8 mg/dL
[2023-08-04 11:10] LABS: Parathyroid Intact 200.1 pg/mL (7.5-53.5)
[2023-08-04 11:25] LABS: Vitamin D 25 Hydroxy 60.3 ng/mL
[2023-08-07 03:24] LABS: ANCA Screen NEGATIVE (NEGATIVE)
== END 2023-08-04 09:46 | disposition home or self-care (01) ==
LOC: ANHLAB 09:49
PROVIDERS: PCP Internal Medicine; Visit Provider Internal Medicine Nephrology
DX: E21.1 Secondary hyperparathyroidism, not elsewhere classified (principal); M31.30 Wegener's granulomatosis without renal involvement; N18.4 Chronic kidney disease, stage 4 (severe)
CPT/HCPCS: 36415; 80069; 82306; 82570; 83970; 84156; 85025; 86036

== ENCOUNTER 2023-09-12 10:23 | Outpatient (CLI) | payer MEDICARE, OTHER, SELFPAY ==
--- NOTE | ~2023-09-12 | XR_ITS ---
XR chest 2V 09/12/2023 10:45 Indication: Cough. Autoimmune disorder. Procedure: 2 view chest Comparison: 03/14/2022 Findings: Mild diffuse chronic interstitial infiltrates. Status post median sternotomy for CABG. Card iomegaly. No significant effusion. No pneumothorax. There is diffuse idiopathic skeletal hyperostosis (DISH) of the thoracic spine. Impression: 1: Stable mild diffuse interstitial infiltrates, consistent with chronic interstitial lung disease. Reviewed, dictated and finalized at location B. Impression: 1: Stable mild diffuse interstitial infiltrates, consistent with chronic inters titial lung disease.
== END 2023-09-12 10:24 | disposition home or self-care (01) ==
PROVIDERS: PCP Internal Medicine
DX: R05.9 Cough, unspecified (principal); R04.2 Hemoptysis; R91.8 Other nonspecific abnormal finding of lung field
CPT/HCPCS: 71046

== ENCOUNTER 2023-10-06 10:34 | Outpatient (RCR) | payer MEDICARE, OTHER, SELFPAY ==
[2023-08-18 10:48] LABS: Basophils Percent Auto 0.3 % (0.2-1.2); Eosinophils Absolute Auto 0.2 K/mm3 (0-0.3); Eosinophils Percent Auto 3.5 % (0-4.4); Hematocrit 34.1 % (42.0-52.0); Hemoglobin 11.2 g/dL (14.0-18.0); Immature Granulocyte Absolute 0.03 K/mm3 (0.00-0.031); Immature Granulocyte Percent A 0.5 % (0-0.5); Lymphocytes Absolute Auto 0.71 K/mm3 (0.9-3.2); Lymphocytes Percent Auto 11.8 % (18.3-44.2); Mean Corpuscular HGB Conc 32.8 g/dl (32-36); Mean Corpuscular Hemoglobin 30.1 pg (26-34); Mean Corpuscular Volume 91.7 fl (80-100); Monocytes Absolute Auto 0.5 K/mm3 (0.1-0.6); Monocytes Percent Auto 7.8 % (2.6-8.5); Neutrophils Absolute Auto 4.6 K/mm3 (1.3-6.7); Neutrophils Percent Auto 76.1 % (45.5-73.1); Platelet Count Result 131 k/mm3 (150-375); Red Blood Count 3.72 M/mm3 (4.6-6.20); Red Cell Distribution Width 14.3 % (11.5-14.5)
[2023-09-04 07:35] LABS: Basophils Percent Auto 0.1 % (0.2-1.2); Eosinophils Absolute Auto 0.1 K/mm3 (0-0.3); Hematocrit 38.2 % (42.0-52.0); Hemoglobin 11.7 g/dL (14.0-18.0); Immature Granulocyte Absolute 0.02 K/mm3 (0.00-0.031); Immature Granulocyte Percent A 0.3 % (0-0.5); Lymphocytes Absolute Auto 0.62 K/mm3 (0.9-3.2); Lymphocytes Percent Auto 8.9 % (18.3-44.2); Mean Corpuscular HGB Conc 30.6 g/dl (32-36); Mean Corpuscular Hemoglobin 29.1 pg (26-34); Mean Platelet Volume 11.2 fl (7.4-10.4); Monocytes Absolute Auto 0.5 K/mm3 (0.1-0.6); Monocytes Percent Auto 7.1 % (2.6-8.5); Neutrophils Absolute Auto 5.7 K/mm3 (1.3-6.7); Neutrophils Percent Auto 81.6 % (45.5-73.1); Platelet Count Result 123 k/mm3 (150-375); Red Blood Count 4.02 M/mm3 (4.6-6.20); Red Cell Distribution Width 14.4 % (11.5-14.5); White Blood Count 6.9 K/mm3 (4.5-10.0)
[2023-10-06 10:47] LABS: Basophils Percent Auto 0.4 % (0.2-1.2); Eosinophils Absolute Auto 0.1 K/mm3 (0-0.3); Eosinophils Percent Auto 2.5 % (0-4.4); Hematocrit 33.9 % (42.0-52.0); Hemoglobin 10.4 g/dL (14.0-18.0); Immature Granulocyte Absolute 0.04 K/mm3 (0.00-0.031); Immature Granulocyte Percent A 0.7 % (0-0.5); Lymphocytes Absolute Auto 0.65 K/mm3 (0.9-3.2); Lymphocytes Percent Auto 11.5 % (18.3-44.2); Mean Corpuscular HGB Conc 30.7 g/dl (32-36); Mean Corpuscular Hemoglobin 28.7 pg (26-34); Mean Corpuscular Volume 93.6 fl (80-100); Mean Platelet Volume 9.3 fl (7.4-10.4); Monocytes Absolute Auto 0.4 K/mm3 (0.1-0.6); Monocytes Percent Auto 6.3 % (2.6-8.5); Neutrophils Absolute Auto 4.5 K/mm3 (1.3-6.7); Neutrophils Percent Auto 78.6 % (45.5-73.1); Platelet Count Result 121 k/mm3 (150-375); Red Blood Count 3.62 M/mm3 (4.6-6.20); Red Cell Distribution Width 14.7 % (11.5-14.5); White Blood Count 5.7 K/mm3 (4.5-10.0)
== END 2023-11-02 23:59 | disposition home or self-care (01) ==
LOC: ANHLAB 10:34
PROVIDERS: PCP Internal Medicine; Visit Provider Internal Medicine
DX: Z51.81 Encounter for therapeutic drug level monitoring (principal); Z79.899 Other long term (current) drug therapy
CPT/HCPCS: 36415; 85025

== ENCOUNTER 2023-11-06 11:01 | Outpatient (CLI) | payer MEDICARE, OTHER, SELFPAY ==
[2023-11-06 11:52] LABS: Basophils Percent Auto 0.5 % (0.2-1.2); Eosinophils Absolute Auto 0.2 K/mm3 (0-0.3); Eosinophils Percent Auto 2.4 % (0-4.4); Hematocrit 31.5 % (42.0-52.0); Hemoglobin 9.4 g/dL (14.0-18.0); Immature Granulocyte Absolute 0.06 K/mm3 (0.00-0.031); Lymphocytes Absolute Auto 0.71 K/mm3 (0.9-3.2); Lymphocytes Percent Auto 11.4 % (18.3-44.2); Mean Corpuscular HGB Conc 29.8 g/dl (32-36); Mean Corpuscular Hemoglobin 28.7 pg (26-34); Mean Corpuscular Volume 96.3 fl (80-100); Monocytes Absolute Auto 0.4 K/mm3 (0.1-0.6); Monocytes Percent Auto 6.3 % (2.6-8.5); Neutrophils Absolute Auto 4.9 K/mm3 (1.3-6.7); Neutrophils Percent Auto 78.4 % (45.5-73.1); Platelet Count Result 147 k/mm3 (150-375); Red Blood Count 3.27 M/mm3 (4.6-6.20); Red Cell Distribution Width 15.2 % (11.5-14.5); White Blood Count 6.2 K/mm3 (4.5-10.0)
[2023-11-06 11:53] LABS: Add Urine Microscopic? NO; Appearance Urine Clear (Clear); Bilirubin Urine Negative (Negative); Blood Urine Negative (Negative); Color Urine Yellow (Yellow); Glucose Urine UA Negative (Negative); Ketones Urine Negative (Negative); Leukocyte Esterase Ur Negative LEU/UL (Negative); Nitrate Urine Negative (Negative); Protein Urine Negative (Negative); Specific Grav Ur 1.011 (1.001-1.035); Urobilinogen Urine 0.2 mg/dL (<2.0); pH Urine 5.5 (5.0-9.0)
[2023-11-06 12:00] LABS: Creatinine Urine 71.2 mg/dL; Total Protein Urine Random 10 mg/dL; Ur Ttl Prot Creatinine Ratio 0.14 mg/mg (0-0.20)
[2023-11-06 12:03] LABS: Anion Gap 12 mmol/L (4-12); Blood Urea Nitrogen 28 mg/dL (9-20); Calcium 7.6 mg/dL (8.4-10.2); Carbon Dioxide 23 mmol/L (22-30); Chloride 105 mmol/L (98-107); Estimated Glomerular Filt Rate 33; Glucose 118 mg/dL (65-110); Phosphorus 2.8 mg/dL (2.5-4.5); Potassium 4.7 mmol/L (3.4-5.0); Sodium 140 mmol/L (137-145)
[2023-11-06 12:17] LABS: Parathyroid Intact 319.4 pg/mL (7.5-53.5)
[2023-11-06 12:47] LABS: Anisocytosis 1+; Platelet Estimate Adequate (Adequate); Poikilocytosis 1+; Schistocytes None Seen; Tear Drop Cells 1+
[2023-11-08 15:33] LABS: ANCA Screen NEGATIVE (NEGATIVE)
== END 2023-11-06 11:02 | disposition home or self-care (01) ==
LOC: ANHLAB 11:04
PROVIDERS: Internal Medicine Pulmonary Disease; PCP Internal Medicine; Referring Provider Internal Medicine; Visit Provider Internal Medicine Nephrology
DX: E21.1 Secondary hyperparathyroidism, not elsewhere classified (principal); M31.30 Wegener's granulomatosis without renal involvement; Z79.899 Other long term (current) drug therapy
CPT/HCPCS: 36415; 80069; 81003; 82570; 83970; 84156; 85025; 86036

== ENCOUNTER 2023-12-16 10:13 | Outpatient (CLI) | payer MEDICARE, OTHER, SELFPAY ==
[2023-12-16 11:19] LABS: Cholesterol 139 mg/dL (0-200); HDL Direct 34 mg/dL; Triglycerides 142 mg/dL (<150)
[2023-12-16 11:31] LABS: LDL Cholesterol Direct 75 mg/dL
[2023-12-16 11:47] LABS: Prostate Specific Antigen 1.7 ng/mL (< OR = 4.0)
== END 2023-12-16 10:14 | disposition home or self-care (01) ==
PROVIDERS: PCP Internal Medicine; Visit Provider Internal Medicine
DX: E78.5 Hyperlipidemia, unspecified (principal); Z12.5 Encounter for screening for malignant neoplasm of prostate
CPT/HCPCS: 36415; 80061; 84153; G0103

== ENCOUNTER 2023-12-23 12:01 | Outpatient (CLI) | payer MEDICARE, OTHER, SELFPAY ==
[2023-12-23 12:31] LABS: Basophils Percent Auto 0.3 % (0.2-1.2); Eosinophils Absolute Auto 0.1 K/mm3 (0-0.3); Hematocrit 34.4 % (42.0-52.0); Hemoglobin 10.5 g/dL (14.0-18.0); Immature Granulocyte Absolute 0.01 K/mm3 (0.00-0.031); Immature Granulocyte Percent A 0.2 % (0-0.5); Lymphocytes Absolute Auto 0.69 K/mm3 (0.9-3.2); Lymphocytes Percent Auto 11.2 % (18.3-44.2); Mean Corpuscular HGB Conc 30.5 g/dl (32-36); Mean Corpuscular Hemoglobin 29.3 pg (26-34); Mean Corpuscular Volume 96.1 fl (80-100); Mean Platelet Volume 10.3 fl (7.4-10.4); Monocytes Absolute Auto 0.5 K/mm3 (0.1-0.6); Neutrophils Absolute Auto 4.8 K/mm3 (1.3-6.7); Neutrophils Percent Auto 78.3 % (45.5-73.1); Platelet Count Result 140 k/mm3 (150-375); Red Blood Count 3.58 M/mm3 (4.6-6.20); Red Cell Distribution Width 13.9 % (11.5-14.5); White Blood Count 6.1 K/mm3 (4.5-10.0)
== END 2023-12-23 12:02 | disposition home or self-care (01) ==
PROVIDERS: PCP Internal Medicine
DX: J84.9 Interstitial pulmonary disease, unspecified (principal); Z79.899 Other long term (current) drug therapy
CPT/HCPCS: 36415; 85025

== ENCOUNTER 2024-01-06 10:01 | Outpatient (RCR) | payer MEDICARE, OTHER, SELFPAY ==
[2023-12-16 11:06] LABS: Basophils Percent Auto 0.4 % (0.2-1.2); Eosinophils Absolute Auto 0.1 K/mm3 (0-0.3); Eosinophils Percent Auto 2.1 % (0-4.4); Hematocrit 32.9 % (42.0-52.0); Hemoglobin 10.1 g/dL (14.0-18.0); Immature Granulocyte Absolute 0.02 K/mm3 (0.00-0.031); Immature Granulocyte Percent A 0.4 % (0-0.5); Lymphocytes Absolute Auto 0.59 K/mm3 (0.9-3.2); Lymphocytes Percent Auto 11.2 % (18.3-44.2); Mean Corpuscular HGB Conc 30.7 g/dl (32-36); Mean Corpuscular Hemoglobin 29.4 pg (26-34); Mean Corpuscular Volume 95.6 fl (80-100); Mean Platelet Volume 10.6 fl (7.4-10.4); Monocytes Absolute Auto 0.4 K/mm3 (0.1-0.6); Neutrophils Absolute Auto 4.1 K/mm3 (1.3-6.7); Neutrophils Percent Auto 77.9 % (45.5-73.1); Platelet Count Result 132 k/mm3 (150-375); Red Blood Count 3.44 M/mm3 (4.6-6.20); Red Cell Distribution Width 14.3 % (11.5-14.5); White Blood Count 5.3 K/mm3 (4.5-10.0)
[2024-01-06 10:25] LABS: Basophils Percent Auto 0.5 % (0.2-1.2); Eosinophils Absolute Auto 0.2 K/mm3 (0-0.3); Eosinophils Percent Auto 2.6 % (0-4.4); Hematocrit 35.4 % (42.0-52.0); Hemoglobin 10.8 g/dL (14.0-18.0); Immature Granulocyte Absolute 0.02 K/mm3 (0.00-0.031); Immature Granulocyte Percent A 0.3 % (0-0.5); Lymphocytes Absolute Auto 0.57 K/mm3 (0.9-3.2); Lymphocytes Percent Auto 9.4 % (18.3-44.2); Mean Corpuscular HGB Conc 30.5 g/dl (32-36); Mean Corpuscular Volume 95.2 fl (80-100); Mean Platelet Volume 10.5 fl (7.4-10.4); Monocytes Absolute Auto 0.4 K/mm3 (0.1-0.6); Monocytes Percent Auto 6.9 % (2.6-8.5); Neutrophils Absolute Auto 4.9 K/mm3 (1.3-6.7); Neutrophils Percent Auto 80.3 % (45.5-73.1); Platelet Count Result 111 k/mm3 (150-375); Red Blood Count 3.72 M/mm3 (4.6-6.20); Red Cell Distribution Width 13.9 % (11.5-14.5); White Blood Count 6.1 K/mm3 (4.5-10.0)
== END 2024-03-15 23:59 | disposition home or self-care (01) ==
LOC: ANHLAB 10:01
PROVIDERS: PCP Internal Medicine; Visit Provider Internal Medicine
DX: Z51.81 Encounter for therapeutic drug level monitoring (principal); Z12.5 Encounter for screening for malignant neoplasm of prostate; Z79.899 Other long term (current) drug therapy
CPT/HCPCS: 36415; 80061; 84153; 85025; G0103

== ENCOUNTER 2024-01-19 10:08 | Outpatient (CLI) | payer MEDICARE, OTHER, SELFPAY ==
[2024-01-19 10:43] LABS: Add Urine Microscopic? NO; Appearance Urine Clear (Clear); Bilirubin Urine Negative (Negative); Blood Urine Negative (Negative); Color Urine Yellow (Yellow); Glucose Urine UA Negative (Negative); Ketones Urine Negative (Negative); Leukocyte Esterase Ur Negative LEU/UL (Negative); Nitrate Urine Negative (Negative); Protein Urine Negative (Negative); Specific Grav Ur 1.012 (1.001-1.035); Urobilinogen Urine 0.2 mg/dL (<2.0); pH Urine 5.5 (5.0-9.0)
[2024-01-19 11:23] LABS: CRP < 0.5 mg/dL (<1.0); Creatine Kinase 99 U/L (55-170)
[2024-01-21 12:51] LABS: Myeloperoxidase Ab <1.0
[2024-01-21 14:21] LABS: Aldolase 3.2
== END 2024-01-19 10:09 | disposition home or self-care (01) ==
PROVIDERS: PCP Internal Medicine
DX: J84.9 Interstitial pulmonary disease, unspecified (principal); Z79.899 Other long term (current) drug therapy
CPT/HCPCS: 36415; 81003; 82085; 82550; 86036; 86140

== ENCOUNTER 2024-01-24 11:54 | Emergency (ER) | payer MEDICARE, OTHER, SELFPAY ==
--- NOTE | ~2024-01-24 | US_ITS ---
EXAMINATION: US venous doppler LE RT DATE: 01/24/2024 13:16 INDICATION: Right lower limb swelling. TECHNIQUE: Grayscale ultrasound images without and with compression and Doppler ultrasound images of the right lower extremity veins were obtained. COMPARISON: Ultrasound 11/18/2017 FINDINGS: The visualized portions of right common femoral vein, profunda (deep) femoral vein, femoral vein, pop liteal vein, posterior tibial veins, and greater saphenous vein outflow are patent. IMPRESSION: 1. No deep venous thrombosis. Reviewed, dictated and finalized at location A.
--- NOTE | ~2024-01-24 | XR_ITS ---
EXAMINATION: XR knee RT 3V DATE: 01/24/2024 13:14 INDICATION: Right knee pain. Instability. TECHNIQUE: 3 views of right knee were obtained. COMPARISON: None. FINDINGS: Bone alignment is normal. No fracture. There is moderate osteoarthritis of medial and graves lofemoral compartments and mild osteoarthritis of lateral compartment. No knee joint effusion. IMPRESSION: 1. Moderate right knee osteoarthritis. Reviewed, dictated and finalized at location A.
[2024-01-24 11:57] VITALS: BP 144/63; PULSE 87; RESP 16; TEMP 36.3; O2SAT 99
--- NOTE | 2024-01-24 13:05 | PC.NURSE ---
Patient states that he has a pmhx of triple bypass, ckd stage 3, takes eliquis 5m bid, and a baby aspirin. patient has bilateral ankle pitting edema, Right leg more significant. patient states he got an ultrasound of his lower extremeties in August, but he does have occlusions but they are unable to fix them. 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 patient has difficulty moving the right ankle and right toes, but has full movement of left ankle and toes.
[2024-01-24] MEDS: HYDROcodone/acetaminophen (*CRX) 5-325 MG TABLET 1 TAB PO (13:13)
--- NOTE | 2024-01-24 13:54 | ED.LOWEXIN ---
HPI - Extremity Injury (Lower) General Chief Complaint: Extremity Injury, Lower Stated Complaint: rle pain Time Seen by Provider: 01/24/24 12:34 History of Present Illness HPI Narrative: Patient is a 68-year-old male who presents to the ER with pain in the right knee. He hyperextended a couple days ago while walking in [employer]. He did it again yesterday. He has aching over the anterior aspect of the knee. Has pain with walking. He has developed new swelling in his right lower extremity. No fevers or chills or sweats. No chest pain or chest pressure. He is anticoagulated on Eliquis. Related Data Home Medications Medication Instructions Recorded Confirmed apixaban 5 mg tablet (Eliquis) 5 mg PO Q12H 07/26/19 11/14/23 aspirin 81 mg tablet 81 mg PO DAILY 10/06/20 11/14/23 mecobalamin (vitamin B12) 10,000 10,000 mcg IM MONTHLY 11/04/22 11/14/23 mcg solution for injection pregabalin 50 mg capsule 50 mg PO TID 02/06/23 11/14/23 tramadol 50 mg tablet 50 mg PO Q12H PRN Pain 02/06/23 11/14/23 mycophenolate mofetil 500 mg tablet PO 08/18/23 11/14/23 Allergies Allergy/AdvReac Type Severity Reaction Status Date / Time No Known Allergies Allergy Verified 11/12/23 12:57 Review of Systems Review of Systems: All systems reviewed & are unremarkable except as noted in HPI and below Constitutional: Constitutional: Reports no additional constitutional complaints Cardiovascular: Cardiovascular: Reports no additional cardiovascular complaints Respiratory: Respiratory: Reports no additional respiratory complaints Musculoskeletal: Musculoskeletal: Denies back pain, Reports arthralgias and Denies joint swelling Comments: Leg swelling PMFSH Past Medical History Medical History Chronic disease anemia CKD (chronic kidney disease) Diabetes HTN (hypertension) Microscopic polyangiitis Neuropathy, peripheral Family History Family History Mother Acute myocardial infarction Hyperlipemia, mixed Hypertension Father Acute myocardial infarction Hyperlipemia, mixed Hypertension Hyperlipidemia Sibling Diabetes mellitus Hyperlipemia, mixed Hypertension Hyperlipidemia Sibling Small cell lung cancer Social History Social History Social History: Has 4 great grandchildren Smoking packs per day: 1 Smoking cigarettes per day: 20.0 Years smoked: 22 Smoking pack-years: 22.00 Smoking status: Former smoker Tobacco type: cigarettes Smoking end date: 03/31/11 Alcohol intake: never Substance use: never Substance use type: does not use Do You Feel Safe in your Home?: Yes Lack of Transportation: No Lack of Food: Never True Current Housing: I Have Housing Concerned About Future Housing: No Difficulty Paying Gas/Electric Bills: No Difficulty Paying for Meds: No Currently Unemployed: No Education: Grade School Difficulty w/ Childcare or Family Care: No Living arrangements: with family Occupation/Education: retired 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 Gender identity (if verbalized by the patient): Male Sexual Orientation (if Verbalized by the Patient): Straight or Heterosexual Spiritual care concerns: No Exam Narrative: GENERAL: Well-appearing, well-nourished, and in no acute distress. HEAD: Normocephalic, atraumatic. ENT: Mucous membranes moist. HEART: Regular rate and rhythm. Normal peripheral pulses. EXTREMITIES: Normal range of motion. 2+ edema. tender over the anterior aspect of the right knee. No effusion noted right knee. SKIN: Warm, dry, no rash. NEURO: Alert and oriented x3. PSYCH: Normal mood and affect. Course Course Emergency Course: [place] for pain. X-ray and ultrasound unremarkable. Appropriate for discharge home. Vital Signs Vital signs: Vital Signs Temperature 97.4 F L 01/24/24 11:57 Pulse Rate 87 01/24/24 11:57 Respiratory Rate 16 01/24/24 11:57 Blood Pressure 144/63 H 01/24/24 11:57 Pulse Oximetry 99 01/24/24 11:57 Temperature 97.4 F L 01/24/24 11:57 Pulse Rate 87 01/24/24 11:57 Respiratory Rate 16 01/24/24 11:57 Blood Pressure 144/63 H 01/24/24 11:57 Pulse Oximetry 99 01/24/24 11:57 Discharge Plan Discharge Clinical Impression: Knee sprain Patient Disposition: Home, Self-Care Condition: Stable Instructions: Knee Sprain (ED), P.R.I.C.E. Treatment (ED) Additional Instructions: Return the ER if you have worsening knee pain, you cannot keep down food/water/ medication, you develop fever 100.4? F, or you have additional concerns. You might benefit from a compression knee sleeve to help with your discomfort. Prescriptions: New hydrocodone-acetaminophen 5-325 mg tablet 1 tablet PO Q6H PRN (Reason: pain) Qty: 10 0RF No Action mecobalamin (vitamin B12) 10,000 mcg recon soln 10,000 mcg IM MONTHLY mycophenolate mofetil 500 mg tablet PO Rx Instructions: take 2tabs QAM and take 1 tab QHS irbesartan 300 mg tablet 300 mg PO DAILY Qty: 30 8RF sodium bicarbonate 650 mg tablet 1,300 mg PO BID Qty: 120 8RF calcitriol 0.25 mcg capsule 0.25 mcg PO 3XW Qty: 14 8RF Rx Instructions: administer after dialysis on dialysis days aspirin 81 mg Tablet 81 mg PO DAILY Eliquis 5 mg Tablet 5 mg PO Q12H Hold Instructions: Resume when okay with your doctor tramadol 50 mg tablet 50 mg PO Q12H PRN (Reason: Pain) pregabalin 50 mg capsule 50 mg PO TID atorvastatin 40 mg tablet 40 mg PO DAILY Qty: 90 3RF Hold Instructions: .Provider Order labetalol 200 mg tablet See Rx Instructions .ROUTE .COMPLEX Qty: 90 3RF Dose Instruction: Take 1 tablet by mouth twice daily Rx Instructions: Take 1 tablet by mouth twice daily potassium chloride 20 mEq tablet,ER particles/crystals See Rx Instructions .ROUTE .COMPLEX Qty: 180 3RF Dose Instruction: Take 1 tablet by mouth twice daily Rx Instructions: Take 1 tablet by mouth twice daily furosemide 40 mg tablet 40 mg PO QAM Qty: 90 3RF Follow-up/Referrals: Nino,Scott Lovett MD [Primary Care Provider] - 1 Week
[2024-01-24 14:11] VITALS: BP 135/58; PULSE 57; TEMP 36.8; O2SAT 96
== END 2024-01-24 14:29 | disposition home or self-care (01) ==
PROVIDERS: Emergency Provider Emergency Medicine; PCP Internal Medicine
DX: S83.91XA Sprain of unspecified site of right knee, initial encounter (principal); X50.9XXA Other and unspecified overexertion or strenuous movements or postures, initial encounter; N18.9 Chronic kidney disease, unspecified; E11.22 Type 2 diabetes mellitus with diabetic chronic kidney disease; I12.9 Hypertensive chronic kidney disease with stage 1 through stage 4 chronic kidney disease, or unspecified chronic kidney disease; E11.42 Type 2 diabetes mellitus with diabetic polyneuropathy; Z87.891 Personal history of nicotine dependence
CPT/HCPCS: 73562; 93971; 99284; A9270

== ENCOUNTER 2024-03-01 12:29 | Outpatient (CLI) | payer MEDICARE, OTHER, SELFPAY ==
[2024-03-01 13:14] LABS: Basophils Percent Auto 0.4 % (0.2-1.2); Eosinophils Absolute Auto 0.1 K/mm3 (0-0.3); Eosinophils Percent Auto 2.4 % (0-4.4); Hemoglobin 11.2 g/dL (14.0-18.0); Immature Granulocyte Absolute 0.04 K/mm3 (0.00-0.031); Immature Granulocyte Percent A 0.7 % (0-0.5); Lymphocytes Absolute Auto 0.65 K/mm3 (0.9-3.2); Lymphocytes Percent Auto 11.8 % (18.3-44.2); Mean Corpuscular HGB Conc 31.1 g/dl (32-36); Mean Corpuscular Hemoglobin 28.7 pg (26-34); Mean Corpuscular Volume 92.3 fl (80-100); Monocytes Absolute Auto 0.4 K/mm3 (0.1-0.6); Monocytes Percent Auto 6.5 % (2.6-8.5); Neutrophils Absolute Auto 4.3 K/mm3 (1.3-6.7); Neutrophils Percent Auto 78.2 % (45.5-73.1); Platelet Count Result 143 k/mm3 (150-375); Red Cell Distribution Width 13.8 % (11.5-14.5); White Blood Count 5.5 K/mm3 (4.5-10.0)
[2024-03-01 13:29] LABS: Anion Gap 5 mmol/L (4-12); Blood Urea Nitrogen 31 mg/dL (9-20); Calcium 8.5 mg/dL (8.4-10.2); Carbon Dioxide 25 mmol/L (22-30); Chloride 107 mmol/L (98-107); Estimated Glomerular Filt Rate 28; Glucose 106 mg/dL (65-110); Potassium 5.2 mmol/L (3.4-5.0); Sodium 137 mmol/L (137-145)
[2024-03-01 13:48] LABS: Creatinine Urine 58.3 mg/dL; Total Protein Urine Random 8 mg/dL; Ur Ttl Prot Creatinine Ratio 0.14 mg/mg (0-0.20)
[2024-03-01 13:53] LABS: Parathyroid Intact 147.3 pg/mL (14.5-75.2)
[2024-03-01 14:03] LABS: Vitamin D 25 Hydroxy 27.4 ng/mL
[2024-03-04 11:48] LABS: ANCA Screen NEGATIVE (NEGATIVE)
== END 2024-03-01 12:30 | disposition home or self-care (01) ==
PROVIDERS: PCP Internal Medicine; Referring Provider Internal Medicine; Visit Provider Internal Medicine Nephrology
DX: Z79.899 Other long term (current) drug therapy (principal)
CPT/HCPCS: 36415; 80069; 82306; 82570; 83970; 84156; 85025; 86036

== ENCOUNTER 2024-03-19 13:17 | Outpatient (CLI) | payer MEDICARE, OTHER, SELFPAY ==
--- NOTE | 2024-03-19 | ECHO_ITS ---
Patient Info Name: Britton Nielsen Age: 69 years : 1955 Gender: Male Ht: 65 in Wt: 232 lbs BSA: 2.25 m2 HR: 59 bpm BP: 159 / 77 mmHg Heart Rhythm: Sinus Rhythm Technical Quality: Fair Exam Date: 03/19/2024 1:27 PM Exam Location: Echo Lab Patient Status: Outpatient Admit Date: 03/19/2024 Staff Ordering Physician: GabeMarce MD Motor Vehicle Compliance Analyst: Yovana Christianson RDCS Attending Provider: ChantelMarce MD Exam Type: CA echo doppler color flow Study Info Indications - Lung disease - PHTN R06.02 - Shortness of breath Complete two-dimensional, color flow and Doppler transthoracic echocardiogram is performed. Summary 1. Left ventricular chamber dimension is normal. 2. Left ventricular systolic function is normal, estimated at 65-70%. 3. There is mildly increased left ventricular wall thickness. 4. The left ventricular diastolic function is grade I diastolic dysfunction. 5. Right ventricular systolic function is normal. 6. Left atrial chamber dimension is mildly enlarged. 7. No significant valvular disease. Left Ventricle Left ventricular chamber dimension is normal. Left ventricular systolic function is normal, estimated at 65-70%. There is mildly increased left ventricular wall thickness. The left ventricular diastolic function is grade I diastolic dysfunction. Right Ventricle Right ventricular chamber dimension is normal. Right ventricular systolic function is normal. Left Atria Left atrial chamber dimension is mildly enlarged. Right Atria Right atrial chamber dimension is normal. Atrial Septum Intact interatrial septum visualized by color flow imaging. Aortic Valve The aortic valve is not well visualized. There is no aortic valve stenosis. There is no aortic valve regurgitation. There is mild aortic valve calcification. Pulmonic Valve The pulmonic valve is not well visualized. There is trace pulmonic regurgitation. Mitral Valve There is trace mitral valve regurgitation. The mitral valve annulus is mildly calcified. Tricuspid Valve There is trace tricuspid valve regurgitation. Pericardium/Pleural There is no pericardial effusion. Inferior Vena Cava Normal inferior vena cava with >50% collapse upon inspiration consistent with normal right atrial pressure, 3 mmHg. Aorta The aortic root size at the sinus of Valsalva is normal. Left Ventricular Outflow Tract Name Value Normal LVOT 2D LVOT Diameter 2.0 cm LVOT Doppler LVOT Peak Gradient 5 mmHg LVOT Mean Gradient 2 mmHg LVOT VTI 25 cm LVOT VTI/AV VTI Ratio 0.6 LVOT Stroke Volume 75 ml LVOT CO 4.2 l/min LVOT CI 1.9 l/min/m2 Pulmonic Valve Name Value Normal RVOT Doppler RVOT Peak Gradient 2 mmHg PV Doppler PV Peak Gradient 7 mmHg Mitral Valve Name Value Normal MV Doppler MV Decel [place] 433 cm/s2 MV PHT 65 ms MV Area (PHT) 3.4 cm2 4.0-5.0 MV Diastolic Function MV E Peak Velocity 96 cm/s MV A Peak Velocity 76 cm/s MV E/A 1.3 MV Decel Time 223 ms MV Annular TDI MV E/e' (Septal) 13.7 <=8.0 MV E/e' (Lateral) 9.3 <=8.0 MV E/e' (Average) 11.5 Tricuspid Valve Name Value Normal TV Regurgitation Doppler TR Peak Velocity 192 cm/s TR Peak Gradient 15 mmHg Estimated PAP/RSVP RA Pressure 3 mmHg <=5 PA Systolic Pressure 18 mmHg <36 RV Systolic Pressure 18 mmHg <36 Aorta Name Value Normal Ascending Aorta Ao Root Diameter (MM) 3.4 cm Ao Root Diam Index (MM) 1.5 cm/m2 Aortic Valve Name Value Normal AV Doppler AV Peak Velocity 171 cm/s AV Peak Gradient 12 mmHg AV Mean Gradient 6 mmHg AV VTI 38 cm AV Area (Cont Eq VTI) 2.0 cm2 >=3.0 AV Area (Cont Eq Andry) 2.0 cm2 AV Regurgitation 2D LVOT Area 3.0 cm2 Ventricles Name Value Normal LV Dimensions 2D/MM IVS Diastolic Thickness (2D) 1.0 cm 0.6-1.0 LVID Diastole (2D) 4.3 cm 4.2-5.8 LVIW Diastolic Thickness (2D) 1.0 cm 0.6-1.0 LVID Systole (2D) 2.6 cm 2.5-4.0 LVOT Diameter 2.0 cm LV Mass (2D Cubed) 139.09 g 88.00-224.00 LV Mass Index (2D Cubed) 62 g/m2 49-115 Relative Wall Thickness (2D) 0.46 LV Fractional Shortening/Ejection Fraction 2D/MM LV Fractional Shortening (2D) 41 % 25-43 LV EF (2D Teicholz) 72 % 52-72 LV Diastolic Volume (4C MOD) 71 ml LV EF (4C MOD) 71 % LV Diastolic Volume (2C MOD) 66 ml LV EF (2C MOD) 73 % LV Diastolic Volume (BP MOD) 70 ml 62-150 LV Diastolic Volume Index (BP MOD) 31 ml/m2 34-74 LV Systolic Volume (BP MOD) 19 ml 21-61 LV Systolic Volume Index (BP MOD) 8 ml/m2 11-31 LV EF (BP MOD) 73 % 52-72 LV Diastolic Length (4C) 7.7 cm LV Systolic Length (4C) 6.7 cm LV Stroke Volume (4C MOD) 51 ml Atria Name Value Normal LA Dimensions LA Dimension (MM) 5.0 cm 3.0-4.1 LA Volume (4C A-L) 75 ml LA Volume (BP A-L) 69 ml RA Dimensions RA Area (4C) 15.7 cm2 <=18.0 Report Signatures
== END 2024-03-19 13:18 | disposition home or self-care (01) ==
LOC: ANHCARD 13:18
PROVIDERS: PCP Internal Medicine; Visit Provider Internal Medicine Pulmonary Disease
DX: I42.2 Other hypertrophic cardiomyopathy (principal); I51.89 Other ill-defined heart diseases; I51.7 Cardiomegaly; I27.20 Pulmonary hypertension, unspecified; J84.9 Interstitial pulmonary disease, unspecified
CPT/HCPCS: 93306

== ENCOUNTER 2024-03-28 00:22 | Emergency (ER) | payer MEDICARE, OTHER, SELFPAY ==
--- NOTE | ~2024-03-28 | XR_ITS ---
EXAMINATION: XR chest 1V portable DATE: 03/28/2024 00:37 INDICATION: Mid chest pain TECHNIQUE: frontal view of the chest was obtained. COMPARISON: Chest radiograph dated 09/12/2023 FINDINGS: Persistent increased interstitial pattern and mild groundglass opacity in the bilateral mid and lower lung zones. No pleural effusion or pneumothorax. Cardiomegaly. Median sternotomy wires and mediastin al surgical clips are seen, likely from prior coronary artery bypass grafting. IMPRESSION: 1. No appreciable change in chronic interstitial and airspace opacities in bilateral mid and lower ryan ng zones consistent with chronic interstitial lung disease. Difficult however to absolutely exclude m ild superimposed pulmonary edema or pneumonia. 2. Cardiomegaly. Reviewed, dictated and finalized at location A. ER PLASMA ARC IMPRESSION: 1. No appreciable change in chronic interstitial and airspace opacities in bila teral mid and lower lung zones consistent with chronic interstitial lung diseas e. Difficult however to absolutely exclude mild superimposed pulmonary edema or pneumonia. 2. Cardiomegaly.
--- NOTE | 2024-03-28 00:17 | ECG_ITS ---
Test Date: 2024-03-28 00:29:27 Measurements Intervals [place] Rate: 70 P: 39 WV: 154 QRS: 34 QRSD: 80 T: 55 QT: 383 QTc: 413 Interpretive Statements SINUS RHYTHM NORMAL ECG No previous ECG available for comparison Electronically Signed On 03-28-2024 09:02:49 CAR INSTALLATIONS SUPERVISOR by Layo Yanes M.D.
[2024-03-28 00:32] VITALS: BP 161/67; PULSE 71; RESP 16; O2SAT 95
[2024-03-28 00:58] LABS: Basophils Percent Auto 0.3 % (0.2-1.2); Eosinophils Absolute Auto 0.1 K/mm3 (0-0.3); Eosinophils Percent Auto 1.8 % (0-4.4); Hematocrit 34.2 % (42.0-52.0); Immature Granulocyte Percent A 1.4 % (0-0.5); Immature Platelet Fraction Pct 4.1 % (0.9-11.2); Lymphocytes Absolute Auto 0.85 K/mm3 (0.9-3.2); Lymphocytes Percent Auto 11.9 % (18.3-44.2); Mean Corpuscular HGB Conc 32.2 g/dl (32-36); Mean Corpuscular Hemoglobin 28.5 pg (26-34); Mean Corpuscular Volume 88.6 fl (80-100); Mean Platelet Volume 10.4 fl (7.4-10.4); Monocytes Absolute Auto 0.4 K/mm3 (0.1-0.6); Monocytes Percent Auto 5.3 % (2.6-8.5); Neutrophils Absolute Auto 5.6 K/mm3 (1.3-6.7); Neutrophils Percent Auto 79.3 % (45.5-73.1); Platelet Count Result 154 k/mm3 (150-375); Red Blood Count 3.86 M/mm3 (4.6-6.20); Red Cell Distribution Width 14.4 % (11.5-14.5); White Blood Count 7.1 K/mm3 (4.5-10.0)
[2024-03-28 01:03] LABS: Alanine Aminotransferase 57 U/L (6-50); Albumin Level 4.3 g/dL (3.5-5.1); Alkaline Phosphatase 203 U/L (38-126); Anion Gap 7 mmol/L (4-12); Aspartate Amino Transferase 99 U/L (17-59); Bilirubin,Total 0.9 mg/dL (0.2-1.3); Blood Urea Nitrogen 66 mg/dL (9-20); Calcium 8.5 mg/dL (8.4-10.2); Carbon Dioxide 22 mmol/L (22-30); Chloride 111 mmol/L (98-107); Estimated CRCL calculation 28 ml/min; Estimated Glomerular Filt Rate 26; Glucose 91 mg/dL (65-110); Lipase 269 U/L (23-300); Sodium 140 mmol/L (137-145)
[2024-03-28 01:08] LABS: INR 1.2; Prothrombin Time 15.6 Seconds (11.1-14.7)
[2024-03-28 01:09] LABS: Partial Thromboplastin Time 30.1 Seconds (22.3-36.8)
[2024-03-28 01:15] LABS: Troponin I < 0.012 ng/mL (0.000-0.034)
[2024-03-28 01:25] VITALS: O2SAT 98
[2024-03-28 01:30] VITALS: BP 161/67; PULSE 69; RESP 15; O2SAT 97
--- NOTE | 2024-03-28 02:34 | ED.GENADULT ---
HPI - General Adult General Chief complaint: Chest Pain Stated complaint: Chest Pain Time Seen by Provider: 03/28/24 00:46 History of Present Illness HPI narrative: Patient is a 69-year-old gentleman who presents emergency department with chief complaint of chest pain. Patient reports that he started having pain radiated from his epigastric/low chest into his back patient states it was a pressure heaviness reports that he has had a prior history of a bypass in 2020 and reports that he has history of chronic kidney disease. Related Data Home Medications ?Medication ?Instructions ?Recorded ?Confirmed ?Last Taken ?Type apixaban 5 mg tablet (Eliquis) 5 mg PO Q12H 07/26/19 03/24/24 06/05/20 History aspirin 81 mg tablet 81 mg PO DAILY 10/06/20 03/24/24 Unknown History mecobalamin (vitamin B12) 10,000 10,000 mcg IM MONTHLY 11/04/22 03/24/24 01/10/23 History mcg solution for injection pregabalin 50 mg capsule 50 mg PO TID 02/06/23 03/24/24 Unknown History tramadol 50 mg tablet 50 mg PO Q12H PRN Pain 02/06/23 03/24/24 Unknown History mycophenolate mofetil 500 mg tablet PO 08/18/23 03/24/24 Unknown History Allergies Allergy/AdvReac Type Severity Reaction Status Date / Time No Known Allergies Allergy Verified 03/28/24 01:16 Review of Systems Review of Systems: A 10 system review of systems was completed on the patient and is negative except for what is stated in the HPI. Nursing and ancillary documentation was reviewed. FORMERLY [facility], [facility] Past Medical History Medical History Microscopic polyangiitis Chronic disease anemia Neuropathy, peripheral HTN (hypertension) Diabetes CKD (chronic kidney disease) Family History Family History Mother Acute myocardial infarction Hyperlipemia, mixed Hypertension Father Acute myocardial infarction Hyperlipemia, mixed Hypertension Hyperlipidemia Sibling Diabetes mellitus Hyperlipemia, mixed Hypertension Hyperlipidemia Sibling Small cell lung cancer Social History Social History Social History: Has 4 great grandchildren Smoking packs per day: 1 Smoking cigarettes per day: 20.0 Years smoked: 22 Smoking pack-years: 22.00 Smoking status: Former smoker Tobacco type: cigarettes Smoking end date: 03/31/11 Alcohol intake: never Substance use: never Substance use type: does not use Do You Feel Safe in your Home?: Yes Lack of Transportation: No Lack of Food: Never True Current Housing: I Have Housing Concerned About Future Housing: No Difficulty Paying Gas/Electric Bills: No Difficulty Paying for Meds: No Currently Unemployed: No Education: Grade School Difficulty w/ Childcare or Family Care: No Living arrangements: with family Occupation/Education: retired 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 Gender identity (if verbalized by the patient): Male Sexual Orientation (if Verbalized by the Patient): Straight or Heterosexual Spiritual care concerns: No Exam Narrative: GENERAL: Well-appearing, well-nourished, and in no acute distress. HEAD: Normocephalic, atraumatic. EYES: PERRLA and EOMI. ENT: Nares clear, no rhinorrhea or epistaxis. Mucous membranes moist. NECK: Supple. CHEST: Clear to auscultation. No respiratory distress. HEART: Regular rate and rhythm. No murmur heard. Normal peripheral pulses. ABDOMEN: Soft, nontender, nondistended, normal active bowel sounds. EXTREMITIES: Normal range of motion. No edema. SKIN: Warm, dry, no rash. NEURO: No focal deficits. Alert and oriented x3. PSYCH: Normal mood and affect. Course Vital Signs Vital signs: Vital Signs Pulse Rate 71 03/28/24 00:32 Respiratory Rate 16 03/28/24 00:32 Blood Pressure 161/67 H 03/28/24 00:32 Pulse Oximetry 95 03/28/24 00:32 Oxygen Delivery Room Air 03/28/24 00:32 Pulse Rate 69 03/28/24 01:30 Respiratory Rate 15 03/28/24 01:30 Blood Pressure 161/67 H 03/28/24 01:30 Pulse Oximetry 97 03/28/24 01:30 Oxygen Delivery Room Air 03/28/24 01:25 Medical Decision Making MDM Narrative Medical decision making narrative: Differential diagnosis includes ACS, chest wall pain, pancreatitis, gastroesophageal spasm Laboratory studies were obtained on the patient showed no significant abnormality the patient has history of renal insufficiency creatinine was 2.5 troponin was 0 hour and 3 hour There was a slight elevation in the AST and ALT Chest x-ray showed no focal infiltrate the patient is feeling much better at this time patient will be discharged home to follow-up with his primary care provider Vital Signs Vital Signs: Vital Signs Pulse Rate 71 03/28/24 00:32 Respiratory Rate 16 03/28/24 00:32 Blood Pressure 161/67 H 03/28/24 00:32 Pulse Oximetry 95 03/28/24 00:32 Oxygen Delivery Room Air 03/28/24 00:32 Pulse Rate 69 03/28/24 01:30 Respiratory Rate 15 03/28/24 01:30 Blood Pressure 161/67 H 03/28/24 01:30 Pulse Oximetry 97 03/28/24 01:30 Oxygen Delivery Room Air 03/28/24 01:25 Lab Data 03/28/24 00:47 03/28/24 00:47 Labs: Lab Results 03/28/24 03/28/24 Range/Units 00:47 03:34 WBC 7.1 (4.5-10.0) K/mm3 RBC 3.86 L (4.6-6.20) M/mm3 Hgb 11.0 L (14.0-18.0) g/dL Hct 34.2 L (42.0-52.0) % MCV 88.6 (80-100) fl MCH 28.5 (26-34) pg MCHC 32.2 (32-36) g/dl RDW 14.4 (11.5-14.5) % Plt Count 154 (150-375) k/mm3 MPV 10.4 (7.4-10.4) fl Immature Gran % (Auto) 1.4 H (0-0.5) % Neut % (Auto) 79.3 H (45.5-73.1) % Lymph % (Auto) 11.9 L (18.3-44.2) % Davidson % (Auto) 5.3 (2.6-8.5) % Eos % (Auto) 1.8 (0-4.4) % Baso % (Auto) 0.3 (0.2-1.2) % Lymph # (Auto) 0.85 L (0.9-3.2) K/mm3 Davidson # (Auto) 0.4 (0.1-0.6) K/mm3 Eos # (Auto) 0.1 (0-0.3) K/mm3 Baso # (Auto) 0.0 (0.0-0.1) K/mm3 Abs Immat Gran (auto) 0.10 H (0.00-0.031) K/mm3 Absolute Neuts (auto) 5.6 (1.3-6.7) K/mm3 Absolute Nucleated RBC 0.000 (0.0-0.012) K/mm3 Nucleated RBC % 0.0 (0.0-0.2) % % Immature Plt Fraction 4.1 (0.9-11.2) % PT 15.6 H (11.1-14.7) Seconds INR 1.2 APTT 30.1 (22.3-36.8) Seconds Sodium 140 (137-145) mmol/L Potassium 5.0 (3.4-5.0) mmol/L Chloride 111 H (98-107) mmol/L Carbon Dioxide 22 (22-30) mmol/L Anion Gap 7 (4-12) mmol/L BUN 66 H D (9-20) mg/dL Creatinine 2.50 H (0.7-1.3) mg/dL Estim Creat Clear Calc 28 ml/min Estimated GFR 26 L (59 - ) Glucose 91 (65-110) mg/dL Calcium 8.5 (8.4-10.2) mg/dL Total Bilirubin 0.9 (0.2-1.3) mg/dL AST 99 H (17-59) U/L ALT 57 H (6-50) U/L Alkaline Phosphatase 203 H (38-126) U/L Troponin I < 0.012 < 0.012 (0.000-0.034) ng/mL Total Protein 7.0 (6.3-8.2) g/dL Albumin 4.3 (3.5-5.1) g/dL Lipase 269 (23-300) U/L Discharge Plan Discharge Clinical Impression: Chest pain Patient Disposition: Home, Self-Care Condition: Stable Instructions: Antibiotic Form, Chest Pain (ED) Patient Language: Malawian Prescriptions: No Action mecobalamin (vitamin B12) 10,000 mcg recon soln 10,000 mcg IM MONTHLY mycophenolate mofetil 500 mg tablet PO Rx Instructions: take 2tabs QAM and take 1 tab QHS irbesartan 300 mg tablet 300 mg PO DAILY Qty: 30 8RF sodium bicarbonate 650 mg tablet 1,300 mg PO BID Qty: 120 8RF calcitriol 0.25 mcg capsule 0.25 mcg PO 3XW Qty: 14 8RF Rx Instructions: administer after dialysis on dialysis days aspirin 81 mg Tablet 81 mg PO DAILY hydrocodone-acetaminophen 5-325 mg tablet 1 tablet PO Q6H PRN (Reason: pain) Qty: 10 0RF Eliquis 5 mg Tablet 5 mg PO Q12H tramadol 50 mg tablet 50 mg PO Q12H PRN (Reason: Pain) pregabalin 50 mg capsule 50 mg PO TID atorvastatin 40 mg tablet 40 mg PO DAILY Qty: 90 3RF labetalol 200 mg tablet See Rx Instructions .ROUTE .COMPLEX Qty: 90 3RF Dose Instruction: Take 1 tablet by mouth twice daily Rx Instructions: Take 1 tablet by mouth twice daily potassium chloride 20 mEq tablet,ER particles/crystals See Rx Instructions .ROUTE .COMPLEX Qty: 180 3RF Dose Instruction: Take 1 tablet by mouth twice daily Rx Instructions: Take 1 tablet by mouth twice daily furosemide 40 mg tablet 40 mg PO QAM Qty: 90 3RF Follow-up/Referrals: Nino,cSott Lovett MD [Primary Care Provider] - Time of Disposition: 04:12
[2024-03-28 03:59] LABS: Troponin I < 0.012 ng/mL (0.000-0.034)
[2024-03-28 04:36] VITALS: BP 156/82; BP 158/64; PULSE 70; PULSE 76; RESP 14; RESP 17; O2SAT 98
--- OUTSIDE RECORDS SUMMARY | 2024-04-04 01:15 | XMS_ITS | Encounter Summary ---
Author Organization [facility] Address [address] [place] [id number] Phone Care Team Providers Care Agricultural Adviser Name Role Phone Bia Oneill MD Primary Care Provider [phone] Reason for Visit * Reason Comments Med Refill Encounter Details Date Type Department Care Team (Late st Contact Info) Description 03/09/2022 Refill [facility] Nephrology and Hypertension [address] [facility], [address] [address] Gilmer Barnard MD [address] [facility], [address] [place] [address] Social History Tobacco Use Types Packs/Day Years Used Date Smoking Tobacco: Former Smokeless Tobacco: Never Alcohol Use Standard Drinks/Week Comments No 0 (1 standard drink = 0.6 oz pur e alcohol) AUDIT-C Answer Date Recorded Frequency of Alcohol Consumption Never 07/12/2018 Average Number of Drinks Not on file 019 Frequency of Binge Drinking Not on file 06/29 Sex and Gender Information Value Date Recorded Sex Assigned at Not on file Gender Identity Not on file Sexual Orientation Not on file documented as of this encounter Plan of Treatment Not on file documented as of this encounter Visit Diagnoses Not on filedocumented in this encounter Care Teams Agricultural Adviser Relationship Specialty Start Date End Date Bia Oneill MD [address] [facility] [address] [place] [address] PCP - General Internal Medicine 07/16/18 documented as of this encounter
--- OUTSIDE RECORDS SUMMARY | 2024-04-04 01:15 | XMS_ITS | Encounter Summary ---
Author Organization [facility] Address [address] [place] [address] Phone Care Team Providers Care Sergeant Of Corrections Name Role Phone Bia Oneill MD Primary Care Provider [phone] Reason for Visit * Reason Comments Med Refill Encounter Details Date Type Department Care Team (Late st Contact Info) Description 03/30/2022 Refill [facility] Nephrology and Hypertension [address] [place] [address], [address] [place] [address] Gilmer Barnard MD [address] [facility], [address] [place] [address] Social History Tobacco Use Types Packs/Day Years [...] on filedocumented in this encounter Care Teams Sergeant Of Corrections Relationship Specialty Start Date End Date Bia Oneill MD [address] [facility] [address] [place] [address] PCP - General Internal Medicine 07/16/18 documented as of this encounter
--- OUTSIDE RECORDS SUMMARY | 2024-04-04 01:15 | XMS_ITS | CONTINUITY OF CARE DOCUMENT ---
Author Name shabbir shea Address Unknown Organization [facility] Address [id number] [place] [address] [address] [place] [address] Phone [phone] Care Team Providers Care Overhead Crane Operator Name Role Phone Carla HAMMOND, [place] Unavailable [phone] Scott Oneill MD Unavailable Scott Oneill MD Unavailable [phone] INSURANCE PROVIDERS Payer name Policy type / Coverage type [employer] red green party ID [employer] Commercial insura [employer] [id number] [place] [employer] Medicare [id number]
--- OUTSIDE RECORDS SUMMARY | 2024-04-04 01:15 | XMS_ITS | Clinical Summary ---
Author Organization [facility]ch Address [address] [place] [address] Phone Care Team Providers Care Rn First Assistant Name Role Phone Bia Oneill MD Primary Care Provider [phone] Allergies No known active allergies Medications Medication Sig Dispensed Refills Start Date End Date Status apixaban (ELIQUIS) 5 MG tablet Take 5 mg by mouth 2 times daily 08/19/2018 Active tadalafil (CIALIS) 20 MG tablet Take 20 mg by mouth 1 (one) time each day if needed 10/24/2019 Active labetalol (NORMODYNE) 200 MG tablet Take 1 tablet (200 mg total) by mouth 2 (two) times a day 180 tablet 3 10/10/2020 Active aspirin 81 MG chewable tablet Chew 81 mg 1 (one) time each day Active traMADol (ULTRAM) 50 MG tablet Take 50 mg by mouth 2 (two) times a day if needed 08/20/2021 Active triamcinolone (KENALOG) 0.1 % cream APPLY CREAM TOPICALLY TO THE AFFECTED AREA(S) TWICE DAILY 08/09/2021 Active atorvastatin (LIPITOR) 40 MG tablet Take 1 tablet by mouth once daily 90 tablet 01/21/2022 Active lisinopril (PRINIVIL) 20 MG tablet Take 1 tablet by mouth once daily 90 tablet 02/04/2022 Active calcium carbonate (TUMS) 500 MG chewable tablet Chew 500 mg in the morning and 500 mg in the evening. Chew with meals. 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 Gastrointestinal hemorrhage 05/10/2017 Nephritic syndrome 05/10/2017 Anemia of chronic renal failure 05/02/2017 Hemolytic anemia 05/02/2017 Essential (primary) hypertension 04/15/2017 Other acute kidney failure 04/04/2017 Microscopic polyangiitis 04/04/2017 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 Immunizations Name Administration Dates Next Due Influenza (IM) Preservative Free 03/14/2014,02/28,03/14/2014 Influenza Split High Dose Preservative Free IM 01/30/2018,01/30/2018,01/30/2018 Influenza TIV (IM) 12/29/2021,02/06/2020, 019 Influenza, Injectable, Quadrivalent 02/21/2021,0 05/13/2020,12/27/2019 Influenza, Injectable, Quadr ivalent, Preservative Free 02/03/2019,02/03/2019,12/25/2017,2017 Influenza, Unspecified 12/27/2019 Moderna Sars-cov-2 Vaccination 07/11/2020,2020,05/13/2020 Pneumococcal Conjugate 05/01/2017 Family History Medical History Relation Comments Kidney disease Neg Hx Social History Tobacco Use Types Packs/Day Years [...] on file Sexual Orientation Not on file Last Filed Vital Signs Vital Sign Reading Time Taken Comments Blood Pressure 128/60 02/27/2022 1:41 PM DIRECTOR OF SAFETY Pulse 72 02/27/2022 1:41 PM DIRECTOR OF SAFETY Temperature 36.7 ??C (98 ??F) 02/27/2022 1:41 PM DIRECTOR OF SAFETY Respiratory Rate - - Oxygen Saturation - - Inhaled Oxygen Concentration - - Weight 96.2 kg (212 lb) 02/27/2022 1:41 PM DIRECTOR OF SAFETY Height 165.1 cm (5' 5 ) 02/27/2022 1:41 PM DIRECTOR OF SAFETY Body Mass Index 35.28 02/27/2022 1:41 PM DIRECTOR OF SAFETY Plan of Treatment Health Maintenance Due Date Last Done Comments Pneumococcal PPSV23/PCV13 65 + Years / High and Highest Risk (1 of 4 - PCV) 02/14/1961 COVID-19 Vaccine (4 - 2022-2 4 season) 2023 07/11/2020, 05/13/2020, 05/13/2020 Influenza Vaccine (#1) 2023 , 02/06/2020, 12/27/2019, Additional history exists Care Teams Rn First Assistant Relationship Specialty Start Date End Date Bia Oneill MD [address] [facility] [address] [place] [address] PCP - General Internal Medicine 07/16/18
--- OUTSIDE RECORDS SUMMARY | 2024-04-04 01:16 | XMS_ITS | Encounter Summary ---
Author Organization [facility] utibrittany Address [address] [place] [address] Phone Care Team Providers Care Drawer In Plain Loom Name Role Phone Bia Oneill MD Primary Care Provider [phone] Encounter Details Date Type Department Care Team (Late st Contact Info) Description 10/30/2020 2:45 PM CDT Office Visit [facility] Nephrology and Hypertension [address] [place] [address], [address] [place] [address] Gilmer Barnard MD [address] [facility], [address] [place] [address] Essential (primary) hypertension (Primary Dx); Chronic kidney disease, Stage IV (severe) (CMS-HCC); Mixed hyperlipidemia Social History Tobacco Use Types Packs/Day Years [...] on file documented as of this encounter Last Filed Vital Signs Vital Sign Reading Time Taken Comments Blood Pressure 142/70 10/30/2020 2:57 PM CDT Pulse 84 10/30/2020 2:57 PM CDT Temperature 36.6 ??C (97.9 ??F) 10/30/2020 2:57 PM CD T Respiratory Rate - - Oxygen Saturation - - Inhaled Oxygen Concentration - - Weight 103 kg (227 lb) 10/30/2020 2:57 PM CDT Height 165.1 cm (5' 5 ) 10/30/2020 2:57 PM CDT Body Mass Index 37.77 10/30/2020 2:57 PM CDT documented in this encounter Progress Notes * Gilmer Barnard MD - 10/30/2020 2:45 PM CDT Britton Nielsen is a pleasant 65 y.o.male. Mr. Nielsen is a 62-year-old, male who was in [facility]. 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 He is off the cellcept he has no blood in the urine. no bloody sputum. He had a triple bypass 06/12/20. Out of the hospital on 06/15. He feels okay. Some good days some baddays. He saw Dr Austin recently. He has discomfort in high back every morning ever since the bypass. He is off the deserts and is trying to lose weight. He gained 12 pounds however he peaked at 230. Has swelling if he is on his feet a lot. He developed shingles in may. No recurrence. Hasn't needed shots lately from Dr Moser. He hasn't had a shot in a long time. He is asking if breathing hydrocarbons (diesel fuel) at work may have caused the GN. I doubt this. energy level is good swelling is still present and stable. drinking lots of fluid. past hx: HTN, HLD, arthritis (hands, knees), SQCCa lip. SHx: nonsmoker nondrinker FHx: heart disease no kidney ds. NKDA ROS Constitutional: Negative except as above Skin: Negative except as above Pulmonary: Negative except as above Urologic: Negative except as above BP 142/70 Pulse 84 Temp 97.9 ??F (36.6 ??C) Ht 5' 5 (1.651 m) Wt 227 lb (103 kg) BMI 37.77 kg/m?? BSA 2.17 m?? WDWN male in NAD Skin No rash Head NCAT Neck No nodes, No TMG Lungs Clear bilaterally Chest wall tender in mid axillary line no rash. Cor RRR no rub or gallop Abd BS+ nontender and soft. Ext Traceedema, Back no cva tenderness Psyche normal not depressed or anxious Recent Labs: Lab Results Component Value Date EGFR 30 (L) 02/06/2018 CREATININE 2.2 (H) 02/06/2018 CREATININEUR 51 04/29/2017 LDL 96 02/06/2018 HDL 39 02/06/2018 GLUCOSE 87 04/29/2017 PTH 40 02/06/2018 HCT 25.2 (L) 04/29/2017 BUN 92 (H) 04/29/2017 NA 138 04/29/2017 K 3.1 02/06/2018 CL 101 04/29/2017 CO2 22 04/29/2017 ALBUMIN 3.5 (L) 04/29/2017 CA 5.9 02/06/2018 06/12/18 Cr 2.1, egfr 32, alt 30, Hb 9.1, plt 136 07/13/18 Cr 2.0, egfr 32, Upro 270 08/17 Cr 2.4 09/14 cr 2.3 10/12/18 Cr 2.6, egfr 25, Upro 180, Hb 9.1 12/07/18 Cr 2.5, gfr 26 01/04/19 Cr 2.4, gfr 27, Upro 200, CBC 5.8/8.6/149, ANCA neg 04/05/2019 Hb 8.6, W 4.1, plt 165, Cr 2.2, gfr 30, 06/04/2019 Cr 2.5, gfr 26, Upro 150, Vit d 80, PTH 165, 06/30/2019 Upro 900 07/09/2019 Cr 2.4, gfr 27, CBC 6.2/10179, UA negpro negbld 01/03/2020 Cr 2.3, gfr 29, Hb 9, 03/07/2020 Cr 2.2, gfr 30, CO2 24, Upro 230, Vit d 69, PTH 103, Upro CBC 5.6, 10.4/164, 10/23/20 Cr 1.7, gfr 41, CO2 19, PTH 145.5, Upro 170, CBC 5.8/10133, Impression: 1. 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 positive ANH, PANCA, high ESR, blood and proteinin the urine. this seems to be getting better. Off prednisone. Off cellcept He continues to be in remission. . 2. he has hypertension. his blood pressure is good. 3. he has hyperlipidemia. he is on a statin. ldl good 4. CKD leftovers of MPA To preserve renal function: Blood pressure is good Cholesterol good in may ANGELICA/ARB will start lisinopril next visit if gfr stable. Low protein diet Vitamin D/PTH he is on ergo. BMI is too high. he should lose weight. consider relief pharmacist or seeing PCP Plan Same meds Lose weight RTC in 4 months Diagnoses and all orders for this visit: Essential (primary) hypertension Chronic kidney disease, Stage IV (severe) ([facility]) Mixed hyperlipidemia Other orders - sodium bicarbonate 650 MG tablet; Take 1 tablet (650 mg total) by mouth 2 (two) times a day - atorvastatin (LIPITOR) 40 MG tablet; Take 1 tablet (40 mg total) by mouth 1 (one) time each day - furosemide (LASIX) 40 MG tablet; Take 1 tablet (40 mg total) by mouth 1 (one) time each day Body mass index is 37.77 kg/m??. Follow up plan to address BMI is lose weight. . See above Diagnoses and all orders for this visit: Essential (primary) hypertension Chronic kidney disease, Stage IV (severe) ([facility]) Mixed hyperlipidemia Body mass index is 37.77 kg/m??. Follow up plan to address BMI is high. . See above Assessment/Plan Diagnoses and all orders for this visit: Microscopic polyangiitis Essential (primary) hypertension Chronic kidney disease stage 4 Blood Pressure for this visit is 142/70. Follow up plan to address blood pressure is okay. Body mass index is 37.77 kg/m??. Follow up plan to address BMI is high. See above. Follow up plan to addresstobacco use is nonsmoker. documented in this encounter Plan of Treatment Not on file documented as of this encounter Visit Diagnoses Diagnosis Essential (primary) hypertension- Primary Chronic kidney disease, Stage IV (severe) ([facility]) Chronic kidney disease, Stage IV (severe) Mixed hyperlipidemia documented in this encounter Care Teams Drawer In Plain Loom Relationship Specialty Start Date End Date Bia Oneill MD [address] [id number] PCP - General Internal Medicine 07/16/18 documented as of this encounter
--- OUTSIDE RECORDS SUMMARY | 2024-04-04 01:16 | XMS_ITS | Encounter Summary ---
Author Organization [facility]te utibrittany Address [address] [place] [address] Phone Care Team Providers Care Bowling Alley Operator Name Role Phone Bia Oneill MD Primary Care Provider [phone] Reason for Visit * Reason Comments Med Refill Encounter Details Date Type Department Care Team (Late st Contact Info) Description 02/04/2022 Refill [facility] Nephrology and Hypertension [address] [place] [address], [address] [place] [address] Gilmer Barnard MD [address] [facility], [address] [place] [address] Social History Tobacco Use Types Packs/Day Years [...] on filedocumented in this encounter Care Teams Bowling Alley Operator Relationship Specialty Start Date End Date Bia Oneill MD [address] [facility] [address] [place] [address] PCP - General Internal Medicine 07/16/18 documented as of this encounter
--- OUTSIDE RECORDS SUMMARY | 2024-04-04 01:16 | XMS_ITS | Encounter Summary ---
Author Organization [facility]te utibrittany Address [address] [place] [address] Phone Care Team Providers Care Extended Insurance Clerk Name Role Phone Bia Oneill MD Primary Care Provider [phone] Reason for Visit * Reason Comments Med Refill Encounter Details Date Type Department Care Team (Late st Contact Info) Description 10/13/2021 Refill [facility] Nephrology and Hypertension [address] [facility], [address] [address] Gilmer Barnard MD [address] [facility], [address] [place] [address] Social History Tobacco Use Types Packs/Day Years [...] on filedocumented in this encounter Care Teams Extended Insurance Clerk Relationship Specialty Start Date End Date Bia Oneill MD [address] [facility] [address] [place] [address] PCP - General Internal Medicine 07/16/18 documented as of this encounter
--- OUTSIDE RECORDS SUMMARY | 2024-04-04 01:16 | XMS_ITS | Encounter Summary ---
Author Organization [facility] Lynnette utibrittany Address [address] [place] [address] Phone Care Team Providers Care Renovator Machine Operator Name Role Phone Bia Oneill MD Primary Care Provider [phone] Reason for Visit * Reason Comments Med Refill Encounter Details Date Type Department Care Team (Late st Contact Info) Description 04/23/2020 Refill [facility] Nephrology and Hypertension [address] [place] [address], [address] [place] [address] Gilmer Barnard MD [address] [facility], [address] [place] [address] Social History Tobacco Use Types Packs/Day Years [...] on filedocumented in this encounter Care Teams Renovator Machine Operator Relationship Specialty Start Date End Date Bia Oneill MD [address] [facility] [address] [place] [address] PCP - General Internal Medicine 07/16/18 documented as of this encounter
--- OUTSIDE RECORDS SUMMARY | 2024-04-04 01:16 | XMS_ITS | Encounter Summary ---
Author Organization [facility] Lynnette utibrittany Address [address] [place] [address] Phone Care Team Providers Care Peripatologist Name Role Phone Bia Oneill MD Primary Care Provider [phone] Encounter Details Date Type Department Care Team (Late st Contact Info) Description 02/27/2022 1:30 PM WASHCLOTH FOLDER Office Visit [facility] Nephrology and Hypertension [address] [place] [address], [address] [place] [address] Gilmer Barnard MD [address] [facility], [address] [place] [address] Essential (primary) hypertension (Primary Dx); Microscopic polyangiitis (CMS-HCC); Anemia of chronic renal failure; Chronic kidney disease, Stage IV (severe) ([facility]) Social History Tobacco Use Types Packs/Day Years [...] Comments Blood Pressure 128/60 02/27/2022 1:41 PM WASHCLOTH FOLDER Pulse 72 02/27/2022 1:41 PM WASHCLOTH FOLDER Temperature 36.7 ??C (98 ??F) 02/27/2022 1:41 PM WASHCLOTH FOLDER Respiratory Rate - - Oxygen Saturation - - Inhaled Oxygen Concentration - - Weight 96.2 kg (212 lb) 02/27/2022 1:41 PM WASHCLOTH FOLDER Height 165.1 cm (5' 5 ) 02/27/2022 1:41 PM WASHCLOTH FOLDER Body Mass Index 35.28 02/27/2022 1:41 PM WASHCLOTH FOLDER documented in this encounter Progress Notes * Gilmer Barnard MD - 02/27/2022 1:30 PM CST Britton Nielsen is a pleasant 67 y.o.male. Mr. Nielsen is a 62-year-old, male who was in [facility]. 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 He is off the cellcept No urinary issues. Sometimes has to push. no bloody sputum. He gets out to do more walking lately. Has more and more good days. He had a triple bypass 06/12/20. Out of the hospital on 06/15. He feels okay. Some good days some baddays. No new events. he has an appt with Dr Austin in may. To get a colonoscopy soon. His CPAP machine was recalled. He finally got a new one so he is using that swelling is doing pretty well. Some at the end of the day. He developed shingles in may. No recurrence. Hasn't needed shots lately from Dr Moser. He hasn't had a shot in a long time. energy level is good drinking lots of fluid. past hx: HTN, HLD, arthritis (hands, knees), SQCCa lip. SHx: nonsmoker nondrinker FHx: heart disease no kidney ds. NKDA ROS Constitutional: Negative except as above Skin: Negative except as above Pulmonary: Negative except as above Urologic: Negative except as above BP 128/60 Pulse 72 Temp 98 ??F (36.7 ??C) Ht 5' 5 (1.651 m) Wt 212 lb (96.2 kg) BMI 35.28 kg/m?? BSA 2.1 m?? WDWN male in NAD Skin No rash Head NCAT Neck No nodes, No TMG Lungs Clear bilaterally Chest wall tender in mid axillary line no rash. Cor RRR no rub or gallop Abd BS+ nontender Ext 1+ edema \ Recent Labs: Lab Results Component Value Date EGFR 17 (L) 04/29/2017 CREATININE 2.2 (H) 02/06/2018 CREATININEUR 51 04/29/2017 [...] CO2 19, PTH 145.5, Upro 170, CBC 5.8/10/133, 01/26/21 Cr 1.9, gfr 36,Upro 170 05/22/21 Cr 2.5, gfr 26, CO2 20, CIRO 50, PTH 182, ANCA neg 09/26/21 Cr 2.1, gfr 32, K 5.4, Co2 20, Hb 10.8, Chol 92//215, PTH 298, Upro 120, 02/18/22 Cr 2.2, gfr 30, PTH 249, Vit d 60, Upro 190, Hb 11.6 Impression: 1. 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 positive ANH, PANCA, high ESR, blood and proteinin the urine. this seems to be getting better. Off prednisone. Off cellcept He continues to be in remission. Check ANCA next visit. . 2. he has hypertension. his blood pressure is is good. 3. he has hyperlipidemia. he is on a statin. ldl good 4. CKD leftovers of MPA Creatinine is a bit better. To preserve renal function: Blood pressure is good Cholesterol good in may ANGELICA/ARB will start lisinopril. Low protein diet Vitamin D/PTH he is on ergo. PTH is a bit high and vit d is okay. Avoid high phos foods (dairy) andstart tums 500 bid with meals. Chol on atorvastatin He will bring a list of meds in next visit. (or his bottles) BMI is too high. he should lose weight. consider jacquard lace weaver or seeing PCP Plan Same diet Same meds Lose weight RTC in 4 months Diagnoses and all orders for this visit: Essential (primary) hypertension Microscopic polyangiitis (CMS-HCC) Anemia of chronic renal failure Chronic kidney disease, Stage IV (severe) (CMS-HCC) Body mass index is 35.28 kg/m??. Follow up plan to address BMI is lose weight. . See above' Diagnoses and all orders for this visit: Essential (primary) hypertension Microscopic polyangiitis (CMS-HCC) Anemia of chronic renal failure Chronic kidney disease, Stage IV (severe) (CMS-HCC) Body mass index is 35.28 kg/m??. Follow up plan to address BMI is lose weight. . See above Diagnoses and all orders for this visit: Essential (primary) hypertension Microscopic polyangiitis (CMS-HCC) Anemia of chronic renal failure Chronic kidney disease, Stage IV (severe) (CMS-HCC) Body mass index is 35.28 kg/m??. Follow up plan to address BMI is lose weight. . See above Diagnoses and all orders for this visit: Essential (primary) hypertension Microscopic polyangiitis (CMS-HCC) Anemia of chronic renal failure Chronic kidney disease, Stage IV (severe) (CMS-HCC) Body mass index is 35.28 kg/m??. Follow up plan to address BMI is lose weight. . See above Diagnoses and all orders for this visit: Essential (primary) hypertension Microscopic polyangiitis (CMS-HCC) Anemia of chronic renal failure Chronic kidney disease, Stage IV (severe) (CMS-HCC) Body mass index is 35.28 kg/m??. Follow up plan to address BMI is high. . See above Assessment/Plan Diagnoses and all orders for this visit: Microscopic polyangiitis Essential (primary) hypertension Chronic kidney disease stage 4 Blood Pressure for this visit is 128/60. Follow up plan to address blood pressure is okay. Body mass index is 35.28 kg/m??. Follow up plan to address BMI is high. See above. Follow up plan to addresstobacco use is nonsmoker. documented in this encounter Plan of Treatment Not on file documented as of this encounter Visit Diagnoses Diagnosis Essential (primary) hypertension- Primary Microscopic polyangiitis (CMS-HCC) Anemia of chronic renal failure Chronic kidney disease, Stage IV (severe) (CMS-HCC) Chronic kidney disease, Stage IV (severe) documented in this encounter Care Teams Peripatologist Relationship Specialty Start Date End Date Bia Oneill MD [address] [place] [id number] PCP - General Internal Medicine 07/16/18 documented as of this encounter
--- OUTSIDE RECORDS SUMMARY | 2024-04-04 01:16 | XMS_ITS | Encounter Summary ---
Author Organization [facility] ut[facility]ittany Address [address] [place] [address] Phone Care Team Providers Care Senior Business Architect Name Role Phone Bia Oneill MD Primary Care Provider [phone] Encounter Details Date Type Department Care Team (Late st Contact Info) Description 01/31/2021 1:30 PM CDT Office Visit [facility] Nephrology and Hypertension [address] [place] [address], [address] [place] [address] Gilmer Barnard MD [address] [facility], [address] [place] [address] Essential (primary) hypertension (Primary Dx); Chronic kidney disease, Stage IV (severe) (CMS-HCC); Anemia of chronic renal failure; Mixed hyperlipidemia Social History Tobacco Use Types [...] Sign Reading Time Taken Comments Blood Pressure 146/80 01/31/2021 1:42 PM CDT Pulse 72 01/31/2021 1:42 PM CDT Temperature 36.7 ??C (98.1 ??F) 01/31/2021 1:42 PM CD T Respiratory Rate - - Oxygen Saturation - - Inhaled Oxygen Concentration - - Weight 106 kg (233 lb) 01/31/2021 1:42 PM CDT Height 165.1 cm (5' 5 ) 01/31/2021 1:42 PM CDT Body Mass Index 38.77 01/31/2021 1:42 PM CDT documented in this encounter Progress Notes * Gilmer Barnard MD - 01/31/2021 1:30 PM CDT Britton Nielsen is a pleasant 65 y.o.male. Mr. Nielsen is a 62-year-old, male who was in [facility]. 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 He is off the cellcept he has no blood in the urine. no bloody sputum. He had a triple bypass 06/12/20. Out of the hospital on 06/15. He feels okay. Some good days some baddays. He saw Dr Austin recently. His CPAP machine was recalled. He has discomfort in high back every morning ever since the bypass. He is off the [place] and is trying to lose weight. He gained 12 pounds however he peaked at 230. Has swelling if he is on his feet a lot. No change He developed shingles in may. No recurrence. [...] above Urologic: Negative except as above BP 146/80 Pulse 72 Temp 98.1 ??F (36.7 ??C) Ht 5' 5 (1.651 m) Wt 233 lb (106 kg) BMI 38.77 kg/m?? BSA 2.2 m?? WDWN male in NAD Skin No rash Head NCAT Neck No nodes, No TMG Lungs Clear to ausc Chest wall tender in mid axillary line no rash. Cor RRR no rub or gallop Abd BS+ nontender and soft. Ext 1+ edema, Recent Labs: Lab Results Component Value Date [...] 19, PTH 145.5, Upro 170, CBC 5.8/10133, 01/26/21 Cr 1.9, gfr 36,Upro 170 Impression: 1. 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 positive ANH, PANCA, high ESR, blood and proteinin the urine. this seems to be getting better. Off prednisone. Off cellcept He continues to be in remission. . 2. he has hypertension. his blood pressure is a bit high. Add lisinopril 20mg per day 3. he has hyperlipidemia. he is on a statin. ldl good 4. CKD leftovers of MPA To preserve renal function: Blood pressure is good Cholesterol good in may ANGELICA/ARB will start lisinopril Low protein diet Vitamin D/PTH he is on ergo. BMI is too high. he should lose weight. consider encoding clerk or seeing PCP Plan Same diet Add lisinopril 20mg per day Lose weight RTC in 4 months Diagnoses and all orders for this visit: Essential (primary) hypertension Chronic kidney disease, Stage IV (severe) ([facility]-H[facility]) Anemia of chronic renal failure Mixed hyperlipidemia Body mass index is 38.77 kg/m??. Follow up plan to address BMI is lose weight. . See above Diagnoses and all orders for this visit: Essential (primary) hypertension Chronic kidney disease, Stage IV (severe) ([facility]-HCC) Anemia of chronic renal failure Mixed hyperlipidemia Body mass index is 38.77 kg/m??. Follow up plan to address BMI is high. . See above Assessment/Plan Diagnoses and all orders for this visit: Microscopic polyangiitis Essential (primary) hypertension Chronic kidney disease stage 4 Blood Pressure for this visit is 146/80. Follow up plan to address blood pressure is okay. Body mass index is 38.77 kg/m??. Follow up plan to address BMI is high. See above. Follow up plan to addresstobacco use is nonsmoker. documented in this encounter Plan of Treatment Not on file documented as of this encounter Visit Diagnoses Diagnosis Essential (primary) hypertension- Primary Chronic kidney disease, Stage IV (severe) ([facility]-H[facility]) Chronic kidney disease, Stage IV (severe) Anemia of chronic renal failure Mixed hyperlipidemia documented in this encounter Care Teams Senior Business Architect Relationship Specialty Start Date End Date Bia Oneill MD [address] [id number] PCP - General Internal Medicine 07/16/18 documented as of this encounter
--- OUTSIDE RECORDS SUMMARY | 2024-04-04 01:16 | XMS_ITS | Encounter Summary ---
Author Organization [facility]ions Address [address] [place] [address] Phone Care Team Providers Care Clinical Research Analyst Name Role Phone Bia Oneill MD Primary Care Provider [phone] Encounter Details Date Type Department Care Team (Late st Contact Info) Description [facility] [address] [facility], [address] [place] [address] Gilmer Barnard MD [address] [facility], [address] [place] [address] Social History Tobacco Use Types Packs/Day Years [...] on filedocumented in this encounter Care Teams Clinical Research Analyst Relationship Specialty Start Date End Date Bia Oneill MD [address] [facility] 15 [place] [address] PCP - General Internal Medicine 07/16/18 documented as of this encounter
--- OUTSIDE RECORDS SUMMARY | 2024-04-04 01:16 | XMS_ITS | Encounter Summary ---
Author Organization [facility] utibrittany Address [address] [place] [address] Phone Care Team Providers Care Life Underwriter Name Role Phone Bia Oneill MD Primary Care Provider [phone] Encounter Details Date Type Department Care Team (Late st Contact Info) Description 05/28/2021 1:30 PM CLIENT RELATIONSHIP CONSULTANT Office Visit [facility] Nephrology and Hypertension [address] [place] [address], [address] [place] [address] Gilmer Barnard MD [address] [facility], [address] [place] [address] Microscopic polyangiitis (CMS-HCC) (Primary Dx); Essential (primary) hypertension; Chronic kidney disease, Stage IV (severe) (CMS-HCC); [...] Sign Reading Time Taken Comments Blood Pressure 126/72 05/28/2021 1:28 PM CLIENT RELATIONSHIP CONSULTANT Pulse 60 05/28/2021 1:28 PM CLIENT RELATIONSHIP CONSULTANT Temperature 36.6 ??C (97.9 ??F) 05/28/2021 1:28 PM CS T Respiratory Rate - - Oxygen Saturation - - Inhaled Oxygen Concentration - - Weight 95.7 kg (211 lb) 05/28/2021 1:28 PM CLIENT RELATIONSHIP CONSULTANT Height 165.1 cm (5' 5 ) 05/28/2021 1:28 PM CLIENT RELATIONSHIP CONSULTANT Body Mass Index 35.11 05/28/2021 1:28 PM CLIENT RELATIONSHIP CONSULTANT documented in this encounter Progress Notes * Gilmer Barnard MD - 05/28/2021 1:30 PM CST Britton Nielsen is a pleasant 66 y.o.male. Mr. Nielsen is a 62-year-old, male who was in [facility]. 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 He is off the cellcept he has no blood in the urine. no bloody sputum. He had a triple bypass 06/12/20. Out of the hospital on 06/15. He feels okay. Some good days some baddays. No new events. he has an appt with Dr Austin in may. His CPAP machine was recalled. He was on gabapentin but caused legs to swell. He stopped and it is better. He lost almost 20 pounds. Has swelling if he is on his [...] above Urologic: Negative except as above BP 126/72 Pulse 60 Temp 97.9 ??F (36.6 ??C) Ht 5' 5 (1.651 m) Wt 211 lb (95.7 kg) BMI 35.11 kg/m?? BSA 2.09 m?? WDWN male in NAD Skin No rash Head NCAT Neck No nodes, No TMG Lungs Clear Chest wall tender in mid axillary line no rash. Cor RRR no rub or gallop Abd BS+ nontender and soft. Ext 1+ edema or cyanosis. Recent Labs: Lab Results Component Value Date [...] 900 07/09/2019 Cr 2.4, gfr 27, CBC 6.2/179, UA negpro negbld 01/03/2020 Cr 2.3, gfr 29, Hb 9, 03/07/2020 Cr 2.2, gfr 30, CO2 24, Upro 230, Vit d 69, PTH 103, Upro CBC 5.6, 10.4/164, 10/23/20 Cr 1.7, gfr 41, CO2 19, PTH 145.5, Upro 170, CBC 5.8/10/133, 01/26/21 Cr 1.9, gfr 36,Upro 170 05/22/21 Cr 2.5, gfr 26, CO2 20, CIRO 50, PTH 182, ANCA neg Impression: 1. 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 positive ANH, PANCA, high ESR, blood and proteinin the urine. this seems to be getting better. Off prednisone. Off cellcept He continues to be in remission. . 2. he has hypertension. his blood pressure is is good. He seems tob e on labetalol still but didn'tstart the lisinopril? He isnt sure. He will check at [facility] and let me know what he is actually taking. 3. he has hyperlipidemia. he is on a statin. ldl good 4. CKD leftovers of MPA Creatinine is a bit higher. Maybe back to original baseline? Will hydrate and repeat in 2 weeks. Also clarify his meds at home. To preserve renal function: Blood pressure is good Cholesterol good in may ANGELICA/ARB will start lisinopril? See what he is really on. Low protein diet Vitamin D/PTH he is on ergo. Chol on atorvastatin BMI is too high. he should lose weight. 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 Labetalol and lisinopril Bring bottles in next visit. Lose weight RTC in 4 months Diagnoses and all orders for this visit: Microscopic polyangiitis (CMS-HCC) Essential (primary) hypertension Chronic kidney disease, Stage IV (severe) (CMS-HCC) Mixed hyperlipidemia Body mass index is 35.11 kg/m??. Follow up plan to address BMI is lose weight. . See above Diagnoses and all orders for this visit: Microscopic polyangiitis (CMS-HCC) Essential (primary) hypertension Chronic kidney disease, Stage IV (severe) (CMS-HCC) Mixed hyperlipidemia Body mass index is 35.11 kg/m??. Follow up plan to address BMI is lose weight. . See above Diagnoses and all orders for this visit: Microscopic polyangiitis (CMS-HCC) Essential (primary) hypertension Chronic kidney disease, Stage IV (severe) (CMS-HCC) Mixed hyperlipidemia Body mass index is 35.11 kg/m??. Follow up plan to address BMI is high. . See above Assessment/Plan Diagnoses and all orders for this visit: Microscopic polyangiitis Essential (primary) hypertension Chronic kidney disease stage 4 Blood Pressure for this visit is 126/72. Follow up plan to address blood pressure is okay. Body mass index is 35.11 kg/m??. Follow up plan to address BMI is high. See above. Follow up plan to addresstobacco use is nonsmoker. documented in this encounter Plan of Treatment Not on file documented as of this encounter Visit Diagnoses Diagnosis Microscopic polyangiitis ([facility]-HCC)- Primary Essential (primary) hypertension Chronic kidney disease, Stage IV (severe) (CMS-HCC) Chronic kidney disease, Stage IV (severe) Mixed hyperlipidemia documented in this encounter Care Teams Life Underwriter Relationship Specialty Start Date End Date Bia Oneill MD [address] [phone] PCP - General Internal Medicine 07/16/18 documented as of this encounter
--- OUTSIDE RECORDS SUMMARY | 2024-04-04 01:16 | XMS_ITS | Encounter Summary ---
Author Organization [facility] utibrittany Address [address] [place] [address] Phone Care Team Providers Care Stabber Name Role Phone Bia Oneill MD Primary Care Provider [phone] Reason for Visit * Reason Comments Med Refill Encounter Details Date Type Department Care Team (Late st Contact Info) Description 02/20/2020 Refill [facility] Nephrology and Hypertension [address] [place] [address], [address] [place] [address] Gilmer Barnard MD [address] [facility], [address] [place] [address] Social History Tobacco Use Types Packs/Day Years [...] on filedocumented in this encounter Care Teams Stabber Relationship Specialty Start Date End Date Bia Oneill MD 2043 [facility] 15 [place] [address] PCP - General Internal Medicine 07/16/18 documented as of this encounter
--- OUTSIDE RECORDS SUMMARY | 2024-04-04 01:16 | XMS_ITS | Encounter Summary ---
Author Organization [facility] utibrittany Address [address] [place] [address] Phone Care Team Providers Care Pole Framer Machine Name Role Phone Bia Oneill MD Primary Care Provider [phone] Reason for Visit * Reason Comments Med Refill Encounter Details Date Type Department Care Team (Late st Contact Info) Description 01/16/2020 Refill [facility] Nephrology and Hypertension [address] [place] [address], [address] [place] [address] Gilmer Barnard MD [address] [facility], [address] [place] [address] Social History Tobacco Use Types Packs/Day Years [...] on filedocumented in this encounter Care Teams Pole Framer Machine Relationship Specialty Start Date End Date Bia Oneill MD 2043 [facility] 15 [place] [address] PCP - General Internal Medicine 07/16/18 documented as of this encounter
--- OUTSIDE RECORDS SUMMARY | 2024-04-04 01:16 | XMS_ITS | Encounter Summary ---
Author Organization [facility] utibrittany Address [address] [place] [address] Phone Care Team Providers Care Test Clerk Name Role Phone Bia Oneill MD Primary Care Provider [phone] Reason for Visit * Reason Comments Med Refill Encounter Details Date Type Department Care Team (Late st Contact Info) Description 07/02/2020 Refill [facility] Nephrology and Hypertension [address] [place] [address], [address] [place] [address] Gilmer Barnard MD [address] [facility], [address] [place] [address] Social History Tobacco Use Types Packs/Day Years [...] on filedocumented in this encounter Care Teams Test Clerk Relationship Specialty Start Date End Date Bia Oneill MD 2043 [facility] 15 [place] [address] PCP - General Internal Medicine 07/16/18 documented as of this encounter
--- OUTSIDE RECORDS SUMMARY | 2024-04-04 01:16 | XMS_ITS | Encounter Summary ---
Author Organization [facility] utibrittany Address [address] [place] [address] Phone Care Team Providers Care Grill Chef Name Role Phone Bia Oneill MD Primary Care Provider [phone] Encounter Details Date Type Department Care Team (Late st Contact Info) Description 09/18/2020 Telephone [facility] Nephrology and Hypertension [address] [facility], [address] [place] [address] Gilmer Barnard MD [address] [facility], [address] [place] [address] Social History Tobacco Use Types Packs/Day Years [...] on file documented as of this encounter Miscellaneous Notes * Telephone Encounter - Polly Gen - 09/18/2020 1:06 PM CDT Spoke w/ pt - Out of RX : atorvastatin - please send new script to pharm in chart - FYI - pt's heart drs increased his dosage from 20mg daily to 40mg daily which is why he's out already. Hasn't had this RX for over a week. Says he needs to stay on the 40 mg daily dosage. documented in this encounter Plan of Treatment Not on file documented as of this encounter Visit Diagnoses Not on filedocumented in this encounter Care Teams Grill Chef Relationship Specialty Start Date End Date Bia Oneill MD [address] [phone] PCP - General Internal Medicine 07/16/18 documented as of this encounter
--- OUTSIDE RECORDS SUMMARY | 2024-04-04 01:16 | XMS_ITS | Encounter Summary ---
Author Organization [facility] utibrittany Address [address] [place] [address] Phone Care Team Providers Care Drill Instructor Name Role Phone Bia Oneill MD Primary Care Provider [phone] Reason for Visit * Reason Comments Med Refill Encounter Details Date Type Department Care Team (Late st Contact Info) Description 12/18/2019 Refill [facility] Nephrology and Hypertension [address] [place] [address], [address] [place] [address] Gilmer Barnard MD [address] [facility], [address] [place] [address] Social History Tobacco Use Types Packs/Day Years [...] on filedocumented in this encounter Care Teams Drill Instructor Relationship Specialty Start Date End Date Bia Oneill MD 2043 [facility] 15 [place] [address] PCP - General Internal Medicine 07/16/18 documented as of this encounter
--- OUTSIDE RECORDS SUMMARY | 2024-04-04 01:16 | XMS_ITS | Encounter Summary ---
Author Organization [facility] utibrittany Address [address] [place] [address] Phone Care Team Providers Care Frog Farmer Name Role Phone Bia Oneill MD Primary Care Provider [phone] Reason for Visit * Reason Comments Med Refill Encounter Details Date Type Department Care Team (Late st Contact Info) Description 08/07/2020 Refill [facility] Nephrology and Hypertension [address] [place] [address], [address] [place] [address] Gilmer Barnard MD [address] [facility], [address] [place] [address] Social History Tobacco Use Types Packs/Day Years [...] on filedocumented in this encounter Care Teams Frog Farmer Relationship Specialty Start Date End Date Bia Oneill MD 2043 [facility] 15 [place] [address] PCP - General Internal Medicine 07/16/18 documented as of this encounter
--- OUTSIDE RECORDS SUMMARY | 2024-04-04 01:16 | XMS_ITS | Encounter Summary ---
Author Organization [facility] utibrittany Address [address] [place] [address] Phone Care Team Providers Care Sales Intern Name Role Phone Bia Oneill MD Primary Care Provider [phone] Reason for Visit * Reason Comments Med Refill Encounter Details Date Type Department Care Team (Late st Contact Info) Description 04/28/2021 Refill [facility] Nephrology and Hypertension 1034 [facility], [address] [address] Gilmer Barnard MD [address] [facility], [address] [place] [address] Social History Tobacco Use Types Packs/Day Years [...] on filedocumented in this encounter Care Teams Sales Intern Relationship Specialty Start Date End Date Bia Oneill MD 2043 [facility] 15 [place] [address] PCP - General Internal Medicine 07/16/18 documented as of this encounter
--- OUTSIDE RECORDS SUMMARY | 2024-04-04 01:16 | XMS_ITS | Encounter Summary ---
Author Organization [facility] Lynnette utibrittany Address [address] [place] [address] Phone Care Team Providers Care Baseball Hand Sewer Name Role Phone Bia Oneill MD Primary Care Provider Reason for Visit * Reason Comments Med Refill Encounter Details Date Type Department Care Team (Late st Contact Info) Description 05/27/2021 Refill [facility] Nephrology and Hypertension 1034 [facility], [address] [address] Gilmer Barnard MD [address] [facility], [address] [place] [address] Social History Tobacco Use Types Packs/Day Years [...] on filedocumented in this encounter Care Teams Baseball Hand Sewer Relationship Specialty Start Date End Date Bia Oneill MD 2043 [facility] 15 [place] [address] PCP - General Internal Medicine 07/16/18 documented as of this encounter
--- OUTSIDE RECORDS SUMMARY | 2024-04-04 01:16 | XMS_ITS | Encounter Summary ---
Author Organization [facility] Lynnette utibrittany Address [address] [place] [address] Phone Care Team Providers Care Plumbing Manager Name Role Phone Bia Oneill MD Primary Care Provider [phone] Reason for Visit * Reason Comments Med Refill Encounter Details Date Type Department Care Team (Late st Contact Info) Description 03/21/2021 Refill [facility] Nephrology and Hypertension [address] [facility], [address] [address] Gilmer Barnard MD [address] [facility], [address] [place] [address] Social History Tobacco Use Types Packs/Day Years [...] on filedocumented in this encounter Care Teams Plumbing Manager Relationship Specialty Start Date End Date Bia Oneill MD 2043 [facility] 15 [place] [address] PCP - General Internal Medicine 07/16/18 documented as of this encounter
--- OUTSIDE RECORDS SUMMARY | 2024-04-04 01:16 | XMS_ITS | Encounter Summary ---
Author Organization [facility] Lynnette utibrittany Address [address] [place] [address] Phone Care Team Providers Care Hot Plate Press Operator Name Role Phone Bia Oneill MD Primary Care Provider [phone] Reason for Visit * Reason Comments Med Refill Encounter Details Date Type Department Care Team (Late st Contact Info) Description 12/29/2020 Refill [facility] Nephrology and Hypertension [address] [place] [address], [address] [place] [address] Gilmer Barnard MD [address] [facility], [address] [place] [address] Social History Tobacco Use Types Packs/Day Years [...] on filedocumented in this encounter Care Teams Hot Plate Press Operator Relationship Specialty Start Date End Date Bia Oneill MD 2043 [facility] 15 [place] [address] PCP - General Internal Medicine 07/16/18 documented as of this encounter
--- OUTSIDE RECORDS SUMMARY | 2024-04-04 01:16 | XMS_ITS | Encounter Summary ---
Author Organization [facility] Address [address] [place] [address] Phone Care Team Providers Care Lard Mixer Name Role Phone Bia Oneill MD Primary Care Provider [phone] Encounter Details Date Type Department Care Team (Late st Contact Info) Description 10/03/2021 3:00 PM CDT Office Visit [facility] Nephrology and Hypertension [address] [place] [address], [address] [place] [address] Gilmer Barnard MD [address] [facility], [address] [place] [address] Microscopic polyangiitis (CMS-HCC) (Primary Dx); Essential (primary) hypertension Social History Tobacco Use Types Packs/Day Years [...] Sign Reading Time Taken Comments Blood Pressure 126/80 10/03/2021 3:04 PM CDT Pulse 72 10/03/2021 3:04 PM CDT Temperature 36.3 ??C (97.3 ??F) 10/03/2021 3:04 PM CD T Respiratory Rate - - Oxygen Saturation - - Inhaled Oxygen Concentration - - Weight 93.9 kg (207 lb) 10/03/2021 3:04 PM CDT Height 165.1 cm (5' 5 ) 10/03/2021 3:04 PM CDT Body Mass Index 34.45 10/03/2021 3:04 PM CDT documented in this encounter Progress Notes * Gilmer Barnard MD - 10/03/2021 3:00 PM CDT [place] Nielsen is a pleasant 66 y.o.male. Mr. Nielsen is a 62-year-old, male who was in [facility]. 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 He is off the cellcept he has no blood in the urine. no bloody sputum. He gets out to do more walking lately. Has more and more good days. He had a triple bypass 06/12/20. Out of the hospital on 06/15. He feels okay. Some good days some baddays. No new events. he has an appt with Dr Austin in may. To get a colonoscopy soon. His CPAP machine was recalled. He was on gabapentin but caused legs to swell. He stopped and it is better. He lost another 4 pounds swelling is doing pretty well He developed shingles in may. No recurrence. [...] above Urologic: Negative except as above BP 126/80 Pulse 72 Temp 97.3 ??F (36.3 ??C) Ht 5' 5 (1.651 m) Wt 207 lb (93.9 kg) BMI 34.45 kg/m?? BSA 2.08 m?? WDWN male in NAD Skin No [...] 10.8, Chol 92//215, PTH 298, Upro 120, Impression: 1. MPA renal limited so far. [...] good in may ANGELICA/ARB will start lisinopril. See what he is really on. Low protein diet Vitamin D/PTH he is on ergo. Chol on atorvastatin BMI is too high. he should lose weight. consider granite block paver or seeing PCP Plan Same diet Same meds Lose weight RTC in 4 months Diagnoses and all orders for this visit: Microscopic polyangiitis (CMS-HCC) Essential (primary) hypertension Body mass index is 34.45 kg/m??. Follow up plan to address BMI is lose weight. . See above Diagnoses and all orders for this visit: Microscopic polyangiitis (CMS-HCC) Essential (primary) hypertension Body mass index is 34.45 kg/m??. Follow up plan to address BMI is lose weight. . See above Diagnoses and all orders for this visit: Microscopic polyangiitis (CMS-HCC) Essential (primary) hypertension Body mass index is 34.45 kg/m??. Follow up plan to address BMI is lose weight. . See above Diagnoses and all orders for this visit: Microscopic polyangiitis (CMS-HCC) Essential (primary) hypertension Body mass index is 34.45 kg/m??. Follow up plan to address BMI is high. . See above Assessment/Plan Diagnoses and all orders for this visit: Microscopic polyangiitis Essential (primary) hypertension Chronic kidney disease stage 4 Blood Pressure for this visit is 126/80. Follow up plan to address blood pressure is okay. Body mass index is 34.45 kg/m??. Follow up plan to address BMI is high. See above. Follow up plan to addresstobacco use is nonsmoker. documented in this encounter Plan of Treatment Not on file documented as of this encounter Visit Diagnoses Diagnosis Microscopic polyangiitis (CMS-HCC)- Primary Essential (primary) hypertension documented in this encounter Care Teams Lard Mixer Relationship Specialty Start Date End Date Bia Oneill MD [address] [place] [place] [id number] PCP - General Internal Medicine 07/16/18 documented as of this encounter
--- OUTSIDE RECORDS SUMMARY | 2024-04-04 01:16 | XMS_ITS | Encounter Summary ---
Author Organization [facility] Address [address] [place] [address] Phone Care Team Providers Care Pulp Press Tender Name Role Phone Bia Oneill MD Primary Care Provider [phone] Reason for Visit * Reason Comments Med Refill Encounter Details Date Type Department Care Team (Late st Contact Info) Description 03/19/2020 Refill [facility] Nephrology and Hypertension [address] [place] [address], [address] [place] [address] Gilmer Barnard MD [address] [facility], [address] [place] [address] Social History Tobacco Use Types Packs/Day Years [...] on filedocumented in this encounter Care Teams Pulp Press Tender Relationship Specialty Start Date End Date Bia Oneill MD [address] [facility] 15 [place] [address] PCP - General Internal Medicine 07/16/18 documented as of this encounter
--- OUTSIDE RECORDS SUMMARY | 2024-04-04 01:16 | XMS_ITS | Encounter Summary ---
Author Organization [facility] Address [address] [place] [address] Phone Care Team Providers Care Batch Mixing Truck Driver Name Role Phone Bia Oneill MD Primary Care Provider [phone] Reason for Visit * Reason Comments Med Refill Encounter Details Date Type Department Care Team (Late st Contact Info) Description 10/23/2020 Refill [facility] Nephrology and Hypertension [address] [place] [address], [address] [place] [address] Gilmer Barnard MD [address] [facility], [address] [place] [address] Social History Tobacco Use Types Packs/Day Years [...] on filedocumented in this encounter Care Teams Batch Mixing Truck Driver Relationship Specialty Start Date End Date Bia Oneill MD [address] [facility] 15 [place] [address] PCP - General Internal Medicine 07/16/18 documented as of this encounter
--- OUTSIDE RECORDS SUMMARY | 2024-04-04 01:16 | XMS_ITS | Encounter Summary ---
Author Organization [facility] Address [address] [place] [address] Phone Care Team Providers Care Wire Stitcher Machine Name Role Phone Bia Oneill MD Primary Care Provider [phone] Reason for Visit * Reason Comments Med Refill Encounter Details Date Type Department Care Team (Late st Contact Info) Description 11/03/2021 Refill [facility] Nephrology and Hypertension [address] [place] [address], [address] [place] [address] Gilmer Barnard MD [address] [facility], [address] [place] [address] Social History Tobacco Use Types Packs/Day Years [...] on filedocumented in this encounter Care Teams Wire Stitcher Machine Relationship Specialty Start Date End Date Bia Oneill MD [address] [facility] 15 [place] [address] PCP - General Internal Medicine 07/16/18 documented as of this encounter
--- OUTSIDE RECORDS SUMMARY | 2024-04-04 01:16 | XMS_ITS | Encounter Summary ---
Author Organization [facility] Address [address] [place] [address] Phone Care Team Providers Care Metal Checker Name Role Phone Bia Oneill MD Primary Care Provider [phone] Reason for Visit * Reason Comments Med Refill Encounter Details Date Type Department Care Team (Late st Contact Info) Description 09/11/2020 Refill [facility] Nephrology and Hypertension [address] [place] [address], [address] [place] [address] Gilmer Barnard MD [address] [facility], [address] [place] [address] Social History Tobacco Use Types Packs/Day Years [...] on filedocumented in this encounter Care Teams Metal Checker Relationship Specialty Start Date End Date Bia Oneill MD [address] [facility] 15 [place] [address] PCP - General Internal Medicine 07/16/18 documented as of this encounter
--- OUTSIDE RECORDS SUMMARY | 2024-04-04 01:16 | XMS_ITS | Encounter Summary ---
Author Organization [facility] Address [address] [place] [address] Phone Care Team Providers Care Circle Shear Operator Name Role Phone Bia Oneill MD Primary Care Provider [phone] Encounter Details Date Type Department Care Team (Late st Contact Info) Description 03/15/2020 2:45 PM PAY STATION DEPARTMENT MANAGER Office Visit [facility] Nephrology and Hypertension [address] [place] [address], [address] [place] [address] Gilmer Barnard MD [address] [facility], [address] [place] [address] Essential (primary) hypertension (Primary Dx); Microscopic polyangiitis ([facility]-HCC); Anemia of chronic renal failure; Chronic kidney disease, Stage IV (severe) ([facility]); Nephritic syndrome; Other acute kidney failure ([facility]) Social History Tobacco Use Types Packs/Day Years [...] Sign Reading Time Taken Comments Blood Pressure 162/80 03/15/2020 2:51 PM PAY STATION DEPARTMENT MANAGER Pulse 84 03/15/2020 2:51 PM PAY STATION DEPARTMENT MANAGER Temperature 36.4 ??C (97.6 ??F) 03/15/2020 2:51 PM CS T Respiratory Rate - - Oxygen Saturation - - Inhaled Oxygen Concentration - - Weight 97.5 kg (215 lb) 03/15/2020 2:51 PM PAY STATION DEPARTMENT MANAGER Height 165.1 cm (5' 5 ) 03/15/2020 2:51 PM PAY STATION DEPARTMENT MANAGER Body Mass Index 35.78 03/15/2020 2:51 PM PAY STATION DEPARTMENT MANAGER documented in this encounter Progress Notes * Gilmer Barnard MD - 03/15/2020 2:45 PM CST [place] Nielsen is a pleasant 65 y.o.male. Mr. Nielsen is a 62-year-old, male who was in [facility]. 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 He is off the cellcept he has no blood in the urine. no bloody sputum. He has multiple Complaints: stll has the midaxillary pain. Cr done last visit and was negative. He occasionally feels like he has bumps under the skin over the left upper quadrant. He has not talked with his PCP. [place] wonders if it is related to the cellcept or the prednisone. I am not sure how it would be. He should see the PCP. He has some sob with exertion. He has an occasional cough and some production but never sees blood. He has been busy with chores at home and wonders if he pulled a m uscle. He carries 5 gallon buckets of concrete out of his basement up and down the steps. Has swelling if he is on his feet a lot. He has burning in the chest which radiated down the arms. It happened when having sex twice over the last few weeks. It did not occur when running up steps or carrying heavy loads up steps. He developed shingles in may. No recurrence. Hasn't needed shots lately from Dr Moser energy level is good swelling is still present and stable. drinking lots of fluid. past hx: HTN, HLD, arthritis (hands, knees), SQCCa lip. SHx: nonsmoker nondrinker FHx: heart disease no kidney ds. NKDA ROS Constitutional: Negative except as above Skin: Negative except as above Pulmonary: Negative except as above Urologic: Negative except as above BP 162/80 Pulse 84 Temp 97.6 ??F (36.4 ??C) Ht 5' 5 (1.651 m) Wt 215 lb (97.5 kg) BMI 35.78 kg/m?? BSA 2.11 m?? WDWN male in NAD Skin No rash Head NCAT Neck No nodes, No TMG Lungs Clear Chest wall tender in mid axillary line no rash. Cor RRR no rub or gallop Abd BS+ nontender and soft. Ext Trace to 1+ edema, Back no cva tenderness Psyche normal not [...] 69, PTH 103, Upro CBC 5.6, 10.4/164, Impression: 1. 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 positive ANH, PANCA, high ESR, blood and proteinin the urine. this seems to be getting better. Off prednisone. Off cellcept Looks like it is in remission . 2. he has hypertension. his blood pressure is good. 3. he has hyperlipidemia. he is on a statin. ldl good 4. CKD leftovers of MPA To preserve renal function: Blood pressure is good Cholesterol good in may ANGELICA/ARB will start lisinopril down the line. gfr a bit low. Low protein diet Vitamin D/PTH he is on ergo. he has no DPOA but designates his as the decision maker if he cannot. BMI is too high. he should lose weight. consider contractor buyer or seeing PCP flu shot done. checko n the pneumovax. He has multiple complaints: Chest burning with arm tingling. Not ronnie what this is. Doubt cardiac but he is at risk so should see Dr Oneill to get this evaluated. Mid axillary pain could be muscular. He had a CT scan at [place] recently which was okay. Bumps under the skin? None of above is due to kidneys or the cellcept I don't think. See DR Oneill about these isues. He may have radicular pain. He will see his PCP about this. Plan Same meds See PCP about the back pain RTC in 3 months Diagnoses and all orders for this visit: Essential (primary) hypertension Microscopic polyangiitis (CMS-HCC) Anemia of chronic renal failure Chronic kidney disease, Stage IV (severe) (CMS-HCC) Nephritic syndrome Other acute kidney failure (CMS-HCC) Body mass index is 35.78 kg/m??. Follow up plan to address BMI is high. . See above Assessment/Plan Diagnoses and all orders for this visit: Microscopic polyangiitis Essential (primary) hypertension Chronic kidney disease stage 4 Blood Pressure for this visit is 162/80. Follow up plan to address blood pressure is okay. Body mass index is 35.78 kg/m??. Follow up plan to address BMI is high. See above. Follow up plan to addresstobacco use is nonsmoker. documented in this encounter Plan of Treatment Not on file documented as of this encounter Visit Diagnoses Diagnosis Essential (primary) hypertension- Primary Microscopic polyangiitis (CMS-HCC) Anemia of chronic renal failure Chronic kidney disease, Stage IV (severe) (CMS-HCC) Chronic kidney disease, Stage IV (severe) Nephritic syndrome Other acute kidney failure (CMS-HCC) documented in this encounter Care Teams Circle Shear Operator Relationship Specialty Start Date End Date Bia Oneill MD [address] [phone] PCP - General Internal Medicine 07/16/18 documented as of this encounter
--- OUTSIDE RECORDS SUMMARY | 2024-04-04 01:16 | XMS_ITS | Encounter Summary ---
Author Organization [facility] Address [address] [place] [address] Phone Care Team Providers Care Delicatessen Goods Stock Clerk Name Role Phone Bia Oneill MD Primary Care Provider [phone] Reason for Visit * Reason Comments Med Refill Encounter Details Date Type Department Care Team (Late st Contact Info) Description 11/25/2020 Refill [facility] Nephrology and Hypertension [address] [place] [address], [address] [place] [address] Gilmer Barnard MD [address] [facility], [address] [place] [address] Social History Tobacco Use Types Packs/Day Years [...] on filedocumented in this encounter Care Teams Delicatessen Goods Stock Clerk Relationship Specialty Start Date End Date Bia Oneill MD [address] [facility] 15 [place] [address] PCP - General Internal Medicine 07/16/18 documented as of this encounter
--- OUTSIDE RECORDS SUMMARY | 2024-04-04 01:16 | XMS_ITS | Encounter Summary ---
Author Organization [facility] Address [address] [place] [address] Phone Care Team Providers Care Travel Professional Name Role Phone Bia Oneill MD Primary Care Provider [phone] Reason for Visit * Reason Comments Med Refill Encounter Details Date Type Department Care Team (Late st Contact Info) Description 05/28/2020 Refill [facility] Nephrology and Hypertension [address] [place] [address], [address] [place] [address] Gilmer Barnard MD [address] [facility], [address] [place] [address] Social History Tobacco Use Types Packs/Day Years [...] on filedocumented in this encounter Care Teams Travel Professional Relationship Specialty Start Date End Date Bia Oneill MD [address] [facility] 15 [place] [address] PCP - General Internal Medicine 07/16/18 documented as of this encounter
--- OUTSIDE RECORDS SUMMARY | 2024-04-04 01:16 | XMS_ITS | Encounter Summary ---
Author Organization [facility] Address [address] [place] [address] Phone Care Team Providers Care Calibration Specialist Name Role Phone Bia Oneill MD Primary Care Provider [phone] Encounter Details Date Type Department Care Team (Late st Contact Info) Description 03/05/2022 Telephone [facility] Nephrology and Hypertension [address] [facility], [address] [place] [address] Aidan Larry MA Social History Tobacco Use Types Packs/Day Years [...] encounter Miscellaneous Notes * Telephone Encounter - Gilmer Barnard MD - 03/07/2022 7:17 PM CST I talked with patient. His blood pressure at home was in the 170s. It was in the 190s at infusion. I think he just needs more medication. I have to take an extra half labetalol today and he will take a whole pill lily 200 mg parenthesis bid and call me bp readings in a few days * Telephone Encounter - Gilmer Barnard MD - 03/07/2022 7:15 PM CST Play entry. I talked with the patient yesterday evening. He is off his lisinopril and cough is better. He wants to go back on labetalol. I asked him to restarted half a pill twice a day and let me know how his blood pressure is. * Telephone Encounter - Gemini Iniguez MA - 03/07/2022 2:21 PM CST Pt was supposed to get an iron infusion today, but his bp was 180/90 and then a half hour later 180/84. Was wondering if the Labetalol is causing the high BP. He has stopped taking the lisinopril. Please advise pt. * Telephone Encounter - Gilmer Barnard MD - 03/05/2022 9:22 PM CST I called and LMOR * Telephone Encounter - Aidan Larry MA - 03/05/2022 9:12 AM CST Pt spoke to Dr Thomson over the weekend because he has had a bad cough, that's worse when he lays down. Dr Singleton told him to stop taking BP med and he has and cough seems to be a bit better. Pt wants to speak to you regarding next step cause he is not sure if the cough is the medication orsomething else Please call patient documented in this encounter Plan of Treatment Not on file documented as of this encounter Visit Diagnoses Not on filedocumented in this encounter Care Teams Calibration Specialist Relationship Specialty Start Date End Date Bia Oneill MD [address] [id number] PCP - General Internal Medicine 07/16/18 documented as of this encounter
--- OUTSIDE RECORDS SUMMARY | 2024-04-04 01:16 | XMS_ITS | Encounter Summary ---
Author Organization [facility] Address [address] [place] [address] Phone Care Team Providers Care Litigation Claim Representative Name Role Phone Bia Oneill MD Primary Care Provider [phone] Reason for Visit * Reason Comments Med Refill Encounter Details Date Type Department Care Team (Late st Contact Info) Description 01/21/2022 Refill [facility] Nephrology and Hypertension [address] [facility], [address] [address] Gilmer Barnard MD [address] [facility], [address] [place] [address] Social History Tobacco Use Types Packs/Day Years [...] on filedocumented in this encounter Care Teams Litigation Claim Representative Relationship Specialty Start Date End Date Bia Oneill MD [address] [facility] 15 [place] [address] PCP - General Internal Medicine 07/16/18 documented as of this encounter
--- OUTSIDE RECORDS SUMMARY | 2024-04-04 01:16 | XMS_ITS | Encounter Summary ---
Author Organization [facility]ittany Address [address] [place] [address] Phone Care Team Providers Care It Application Administrator Name Role Phone Bia Oneill MD Primary Care Provider [phone] Encounter Details Date Type Department Care Team (Late st Contact Info) Description 10/10/2020 Refill [facility] Nephrology and Hypertension [address] [facility], [address] [place] [address] Gilmer Barnard MD [address] [facility], [address] [place] [address] Social History Tobacco Use Types Packs/Day Years [...] on filedocumented in this encounter Care Teams It Application Administrator Relationship Specialty Start Date End Date Bia Oneill MD [address] [facility] 15 [place] [address] PCP - General Internal Medicine 07/16/18 documented as of this encounter
--- OUTSIDE RECORDS SUMMARY | 2024-04-04 01:16 | XMS_ITS | Encounter Summary ---
Author Organization [facility]any Address [address] [place] [address] Phone Care Team Providers Care Patient'S Librarian Name Role Phone Bia Oneill MD Primary Care Provider [phone] Encounter Details Date Type Department Care Team (Late st Contact Info) Description 05/10/2020 [facility] Nephrology and Hypertension [address] [facility], [address] [place] [address] Gilmer Barnard MD [address] [facility], [address] [place] [address] Social History Tobacco Use Types Packs/Day Years [...] Telephone Encounter - Gilmer Barnard MD - 05/15/2020 7:16 PM CST I talked with Dr Austin. [place]. He will give [place] fluids ahead of time then do only cor angios without LV gram. Will do staged procedure if he needs more done as long as it is safe. * Telephone Encounter - Gilmer Barnard MD - 05/12/2020 4:00 PM CST I called and texted DR Austin * Telephone Encounter - Gilmer Barnard MD - 05/10/2020 10:04 PM CST I put in a call to Dr Austin * Telephone Encounter - Gil[place] Barnard MD - 05/10/2020 5:52 AM CST Talk with vadim documented in this encounter Plan of Treatment Not on file documented as of this encounter Visit Diagnoses Not on filedocumented in this encounter Care Teams Patient'S Librarian Relationship Specialty Start Date End Date Bia Oneill MD [address] [phone] PCP - General Internal Medicine 07/16/18 documented as of this encounter
--- OUTSIDE RECORDS SUMMARY | 2024-04-04 01:16 | XMS_ITS | Encounter Summary ---
Author Organization [facility]te utibrittany Address [address], [place] [address] Phone Care Team Providers Care Clinical Studies Specialist Name Role Phone Bia Oneill MD Primary Care Provider [phone] Encounter Details Date Type Department Care Team (Late st Contact Info) Description 06/19/2020 Telephone [facility] Nephrology and Hypertension [address] [place] [address], [address] [place] [address] Aidan Larry MA Social History Tobacco Use [...] Telephone Encounter - [place] Barnard MD - 06/19/2020 10:43 PM CDT Please put generic lab slip on my chair with his name on it * Telephone Encounter - Aidan Larry MA - 06/19/2020 11:16 AM CDT PT CAME BY [facility] TO RESCHEDULE 06/12 APPT BECAUSE HE WAS IN THE HOSPITAL. PT WANTED YOU TO KNOW THEY PUT HIM ON 81 MG OF ASPIRIN AGAIN. IS THAT OK WITH YOU? ALSO, APPT IS NOT UNTIL Friday. 2. PLEASE SENT NEW LAB REC FOR NEXT APPT AND IF YOU NEED TO SEEHIM SOONER, LET KNOW RO documented in this encounter Plan of Treatment Not on file documented as of this encounter Visit Diagnoses Not on filedocumented in this encounter Care Teams Clinical Studies Specialist Relationship Specialty Start Date End Date Bia Oneill MD [address] [phone] PCP - General Internal Medicine 07/16/18 documented as of this encounter
--- OUTSIDE RECORDS SUMMARY | 2024-04-04 01:16 | XMS_ITS | Encounter Summary ---
Author Organization [facility]te utibrittany Address [address] [place] [address] Phone Care Team Providers Care Butcher Chicken And Fish Name Role Phone Bia Oneill MD Primary Care Provider [phone] Encounter Details Date Type Department Care Team (Late st Contact Info) Description 05/22/2020 Telephone [facility] Nephrology and Hypertension [address] [place] [address], [address] [place] [address] Aidan Larry MA Social History [...] encounter Miscellaneous Notes * Telephone Encounter - Aidan Larry MA - 05/22/2020 1:44 PM CST PT CAME BY [place] OFFICE. PLEASE WRITE AND MAIL NEW LABS FOR HIS JUNE 12 VISIT. [place]ES [place] documented in this encounter Plan of Treatment Not on file documented as of this encounter Visit Diagnoses Not on filedocumented in this encounter Care Teams Butcher Chicken And Fish Relationship Specialty Start Date End Date Bia Oneill MD 2043 [facility] [address] [place] [address] PCP - General Internal Medicine 07/16/18 documented as of this encounter
--- OUTSIDE RECORDS SUMMARY | 2024-04-04 01:16 | XMS_ITS | Encounter Summary ---
Author Organization [facility] Lynnette utibrittany Address [address] [place] [address] Phone Care Team Providers Care Tank Cooper Name Role Phone Bia Oneill MD Primary Care Provider [phone] Reason for Visit * Reason Comments Med Refill Encounter Details Date Type Department Care Team (Late st Contact Info) Description 11/14/2020 Refill [facility] Nephrology and Hypertension [address] [place] [address], [address] [place] [address] Gilmer Barnard MD [address] [facility], [address] [place] [address] Social History Tobacco Use Types Packs/Day Years [...] on filedocumented in this encounter Care Teams Tank Cooper Relationship Specialty Start Date End Date Bia Oneill MD 2043 [facility] 15 [place] [address] PCP - General Internal Medicine 07/16/18 documented as of this encounter
--- OUTSIDE RECORDS SUMMARY | 2024-04-04 01:16 | XMS_ITS | Encounter Summary ---
Author Organization [facility] Lynnette utibrittany Address [address] [place] [address] Phone Care Team Providers Care County Library Director Name Role Phone Bia Oneill MD Primary Care Provider [phone] Reason for Visit * Reason Comments Med Refill Encounter Details Date Type Department Care Team (Late st Contact Info) Description 01/31/2021 Refill [facility] Nephrology and Hypertension [address] [place] [address], [address] [place] [address] Gilmer Barnard MD [address] [facility], [address] [place] [address] Social History Tobacco Use Types Packs/Day Years [...] on filedocumented in this encounter Care Teams County Library Director Relationship Specialty Start Date End Date Bia Oneill MD 2043 [facility] 15 [place] [address] PCP - General Internal Medicine 07/16/18 documented as of this encounter
--- OUTSIDE RECORDS SUMMARY | 2024-04-04 01:16 | XMS_ITS | Encounter Summary ---
Author Organization [facility] Lynnette utibrittany Address [address] [place] [address] Phone Care Team Providers Care University Controller Name Role Phone Bia Oneill MD Primary Care Provider [phone] Reason for Visit * Reason Comments Med Refill Encounter Details Date Type Department Care Team (Late st Contact Info) Description 01/27/2021 Refill [facility] Nephrology and Hypertension [address] [place] [address], [address] [place] [address] Gilmer Barnard MD [address] [facility], [address] [place] [address] Social History Tobacco Use Types Packs/Day Years [...] on filedocumented in this encounter Care Teams University Controller Relationship Specialty Start Date End Date Bia Oneill MD 2043 [facility] 15 [place] [address] PCP - General Internal Medicine 07/16/18 documented as of this encounter
--- OUTSIDE RECORDS SUMMARY | 2024-04-04 01:17 | XMS_ITS | Encounter Summary ---
Author Organization [facility] Lynnette utibrittany Address [address] [place] [address] Phone Care Team Providers Care Command Post Superintendent Name Role Phone Bia Oneill MD Primary Care Provider [phone] Encounter Details Date Type Department Care Team (Late st Contact Info) Description 08/05/2019 10:45 AM CDT Office Visit [facility] Nephrology and Hypertension [address] [place] [address], [address] [place] [address] Gilmer Barnard MD [address] [facility], [address] [place] [address] Essential (primary) hypertension (Primary Dx); Chronic kidney disease stage 3 (CMS-HCC) Social History Tobacco Use Types Packs/Day Years [...] Reading Time Taken Comments Blood Pressure 126/80 08/05/2019 10:55 AM CDT Pulse 84 08/05/2019 10:55 AM CDT Temperature 36.7 ??C (98.1 ??F) 08/05/2019 10:55 AM C DT Respiratory Rate - - Oxygen Saturation - - Inhaled Oxygen Concentration - - Weight 103 kg (226 lb) 08/05/2019 10:55 AM CDT Height 165.1 cm (5' 5 ) 08/05/2019 10:55 AM CDT Body Mass Index 37.61 08/05/2019 10:55 AM CDT documented in this encounter Progress Notes * Gilmer Barnard MD - 08/05/2019 10:45 AM CDT Britton Nielsen is a pleasant 64 y.o.male. Mr. Nielsen is a 62-year-old, male who was in [facility]. 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 He is off the cellcept he has no blood in the urine. no bloody sputum. He developed shingles in may. He received valcyclovir and is on gabapentin due to post herpetic neuralgia. Rash is gone but still has pain. He has no gi sx and wants to stop the PPI. This is okay Hasn't needed shots lately from Dr Moser no blood in the stool. energy level is good swelling is still present and stable. drinking lots of fluid. past hx: HTN, HLD, arthritis (hands, knees), SQCCa lip. SHx: nonsmoker nondrinker FHx: heart disease no kidney ds. NKDA ROS Constitutional: Negative except as above Skin: Negative except as above Pulmonary: Negative except as above Urologic: Negative except as above BP 126/80 Pulse 84 Temp 98.1 ??F (36.7 ??C) Ht 5' 5 (1.651 m) Wt 226 lb (103 kg) BMI 37.61 kg/m?? BSA 2.17 m?? WDWN male in NAD Skin No rash Head NCAT Neck No nodes, No TMG Lungs Clear to Auscultation Cor RRR no rub or gallop Abd BS+ nontender and soft. Ext Trace to 1+ edema, Psyche normal not depressed or anxious Recent [...] gfr 27, CBC 6.2/179, UA negpro negbld Impression: 1. MPA renal limited so far. [...] too high. he should lose weight. 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 checko n the pneumovax. Plan Let pantoprazole run out RTC in 3 months Assessment/Plan Diagnoses and all orders for this visit: Microscopic polyangiitis Essential (primary) hypertension Chronic kidney disease stage 4 Blood Pressure for this visit is 126/80. Follow up plan to address blood pressure is okay. Body mass index is 37.61 kg/m??. Follow up plan to address BMI is high. See above. Follow up plan to addresstobacco use is nonsmoker. documented in this encounter Plan of Treatment Not on file documented as of this encounter Visit Diagnoses Diagnosis Essential (primary) hypertension- Primary Chronic kidney disease stage 3 (CMS-HCC) documented in this encounter Care Teams Command Post Superintendent Relationship Specialty Start Date End Date Bia Oneill MD [address] [phone] PCP - General Internal Medicine 07/16/18 documented as of this encounter
--- OUTSIDE RECORDS SUMMARY | 2024-04-04 01:17 | XMS_ITS | Encounter Summary ---
Author Organization [facility] Lynnette utibrittany Address [address] [place] [address] Phone Care Team Providers Care Lens Gauger Name Role Phone Bia Oneill MD Primary Care Provider [phone] Encounter Details Date Type Department Care Team (Late st Contact Info) Description 04/23/2019 Telephone [facility] Nephrology and Hypertension [address] [facility], [address] [place] [address] Gilmer Barnard MD [address] [facility], [address] [place] [address] Social History Tobacco Use Types Packs/Day Years [...] encounter Miscellaneous Notes * Telephone Encounter - Rosalina Barnard - 04/23/2019 10:20 AM CST Pt now has Medicare Rx so is asking for a new order called in for mycophenolate to [facility] at [phone]. documented in this encounter Plan of Treatment Not on file documented as of this encounter Visit Diagnoses Not on filedocumented in this encounter Care Teams Lens Gauger Relationship Specialty Start Date End Date Bia Oneill MD [address] [address] PCP - General Internal Medicine 07/16/18 documented as of this encounter
--- OUTSIDE RECORDS SUMMARY | 2024-04-04 01:17 | XMS_ITS | Encounter Summary ---
Author Organization [facility] Lynnette utibrittany Address [address] [place] [address] Phone Care Team Providers Care Swatcher Name Role Phone Bia Oneill MD Primary Care Provider [phone] Encounter Details Date Type Department Care Team (Late st Contact Info) Description 10/26/2018 12:00 PM CDT Office Visit [facility] Nephrology and Hypertension [address] [place] [address], [address] [place] [address] Gilmer Barnard MD [address] [facility], [address] [place] [address] Essential (primary) hypertension (Primary Dx); Chronic kidney disease stage 4 (CMS-HCC); Microscopic polyangiitis (CMS-HCC) Social History Tobacco Use Types Packs/Day [...] Sign Reading Time Taken Comments Blood Pressure 144/70 10/26/2018 12:23 PM CDT Pulse 60 10/26/2018 12:23 PM CDT Temperature 36.7 ??C (98 ??F) 10/26/2018 12:23 PM CDT Respiratory Rate - - Oxygen Saturation - - Inhaled Oxygen Concentration - - Weight 107 kg (235 lb) 10/26/2018 12:23 PM CDT Height 165.1 cm (5' 5 ) 10/26/2018 12:23 PM CDT Body Mass Index 39.11 10/26/2018 12:23 PM CDT documented in this encounter Progress Notes * Gilmer Barnard MD - 10/26/2018 12:00 PM CDT Britton Nielsen is a pleasant 63 y.o.male. Mr. Nielsen is a 62-year-old, male who was in [facility]. 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 he has no blood in the urine. occasional burning every few weeks one time if he has to hold it no bloody sputum. Gets procrit once a month. on cellcept 500 bid and pdn 7.5 daily now. On immunosupp for 18 months (ctx mar to july then mmf) no blood in the stool. energy level is good swelling is still present and stable. drinking lots of fluid. past hx: HTN, HLD, arthritis (hands, knees), SQCCa lip. SHx: nonsmoker nondrinker FHx: heart disease no kidney ds. NKDA ROS Constitutional: Negative except as above Skin: Negative except as above Pulmonary: Negative except as above Urologic: Negative except as above BP 144/70 Pulse 60 Temp 98 ??F (36.7 ??C) Ht 5' 5 (1.651 m) Wt 235 lb (107 kg) BMI 39.11kg/m?? BSA 2.22 m?? WDWN male in NAD Skin No rash Head NCAT Neck No nodes, No TMG Lungs Clear to Auscultation Cor RRR no rub or gallop Abd BS+ nontender and soft. Ext Trace to 1+ edema, Psyche normal not depressed or anxious Recent Labs: Lab Results Component Value Date EGFR 17 (L) 04/29/2017 CREATININE 2.8 08/12/2017 CREATININEUR 51 04/29/2017 GLUCOSE 87 04/29/2017 PTH 286 (H) 04/22/2017 HCT 25.2 (L) 04/29/2017 BUN 92 (H) 04/29/2017 NA 138 04/29/2017 K 3.1 02/06/2018 CL 101 04/29/2017 CO2 22 04/29/2017 ALBUMIN 3.5 (L) 04/29/2017 CA 8.2 (L) 04/29/2017 06/12/18 Cr 2.1, egfr 32, alt 30, Hb 9.1, plt 136 07/13/18 Cr 2.0, egfr 32, Upro 270 08/17 Cr 2.4 09/14 cr 2.3 10/12/18 Cr 2.6, egfr 25, Upro 180, Hb 9.1 Impression: 1. 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 positive ANH, PANCA, high ESR, blood and proteinin the urine. this seems to be getting better. He is on pdn 5. Cut to 2.5 daily for a month then stop rfp and upro and anca in 6 weeks on cellcept 500 bid and stay on this. eating okay. MPA improving. no more blood in the urine. anca neg. repeat this BP is good. swelling is gone . 2. he has hypertension. his blood pressure is good. 3. he has hyperlipidemia. he is on a statin. ldl good 4. CKD leftovers of MPA To preserve renal function: Blood pressure is good Cholesterol good in may ANGELICA/ARB will start lisinopril down the line. Low protein diet Vitamin D/PTH he is on ergo. he has no DPOA but designates his as the decision maker if he cannot. BMI is too high. he should lose weight. 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 checko n the pneumovax. Plan wean pdn. 2.5 daily for 4 wk then stop stay on cellcept 500 bid rfp in 6wk RTC in 3 months Assessment/Plan Diagnoses and all orders for this visit: Microscopic polyangiitis Essential (primary) hypertension Chronic kidney disease stage 4 Blood Pressure for this visit is 144/70. Follow up plan to address blood pressure is okay. Body mass index is 39.11 kg/m??. Follow up plan to address BMI is high. See above. Follow up plan to addresstobacco use is nonsmoker. documented in this encounter Plan of Treatment Not on file documented as of this encounter Visit Diagnoses Diagnosis Essential (primary) hypertension- Primary Chronic kidney disease stage 4 (CMS-HCC) Microscopic polyangiitis (CMS-HCC) documented in this encounter Care Teams Swatcher Relationship Specialty Start Date End Date Bia Oneill MD [address] [place] [phone] PCP - General Internal Medicine 07/16/18 documented as of this encounter
--- OUTSIDE RECORDS SUMMARY | 2024-04-04 01:17 | XMS_ITS | Encounter Summary ---
Author Organization [facility] Lynnette utibrittany Address [address] [place] [address] Phone Care Team Providers Care Accounting Intern Name Role Phone Bia Oneill MD Primary Care Provider [phone] Reason for Visit * Reason Comments Med Refill Encounter Details Date Type Department Care Team (Late st Contact Info) Description 09/17/2018 Refill [facility] Nephrology and Hypertension 1034 [facility], [address] [address] Yasmany Thomson MD 1034 [facility], [address] [place] [address] Social History Tobacco Use Types Packs/Day Years [...] on filedocumented in this encounter Care Teams Accounting Intern Relationship Specialty Start Date End Date Bia Oneill MD 2043 [facility] 15 [place] [address] PCP - General Internal Medicine 07/16/18 documented as of this encounter
--- OUTSIDE RECORDS SUMMARY | 2024-04-04 01:17 | XMS_ITS | Encounter Summary ---
Author Organization [facility] Lynnette welch Address [address] [place] [address] Phone Care Team Providers Care Master Carpenter Name Role Phone Unavailable Primary Care Provider Unavailabl e Reason for Visit * Reason Comments Med Refill Encounter Details Date Type Department Care Team (Late st Contact Info) Description 06/28/2018 Refill [facility] Nephrology and Hypertension [address] [facility], Suite [facility] [place] [address] Gilmer Barnard MD [address] [facility], [address] [facility] [place] [address] Social History Tobacco Use Types Packs/Day Years Used Date Smoking Tobacco: Former Sex and Gender Information Value Date Recorded Sex Assigned at Not on file Gender Identity Not on file Sexual Orientation Not on file documented as of this encounter Plan of Treatment Not on file documented as of this encounter Visit Diagnoses Not on filedocumented in this encounter
--- OUTSIDE RECORDS SUMMARY | 2024-04-04 01:17 | XMS_ITS | Encounter Summary ---
Author Organization [facility] Lynnette utibrittany Address [address] [place] [address] Phone Care Team Providers Care Ribbon Inker Name Role Phone Bia Oneill MD Primary Care Provider [phone] Encounter Details Date Type Department Care Team (Late st Contact Info) Description 07/16/2018 10:45 AM CDT Office Visit [facility] Nephrology and Hypertension [address] [place] [address], [address] [place] [address] Gilmer Barnard MD [address] [facility], [address] [place] [address] Microscopic polyangiitis (CMS-HCC) (Primary Dx); Essential (primary) hypertension; Chronic kidney disease stage 4 (CMS-HCC) Social History Tobacco Use Types Packs/Day [...] Sign Reading Time Taken Comments Blood Pressure 108/60 07/16/2018 11:11 AM CDT Pulse 84 07/16/2018 11:11 AM CDT Temperature 37.4 ??C (99.4 ??F) 07/16/2018 11:11 AM C DT Respiratory Rate - - Oxygen Saturation - - Inhaled Oxygen Concentration - - Weight 107 kg (235 lb) 07/16/2018 11:11 AM CDT Height 165.1 cm (5' 5 ) 07/16/2018 11:11 AM CDT Body Mass Index 39.11 07/16/2018 11:11 AM CDT documented in this encounter Progress Notes * Gilmer Barnard MD - 07/16/2018 10:45 AM CDT Britton Nielsen is a pleasant 63 y.o.male. Mr. Nielsen is a 62-year-old, male who was in [facility]. 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 he has no blood in the urine. no bloody sputum. Gets procrit once a month. on cellcept 500 bid and pdn 7.5 daily now. no blood in the stool. energy level is improved. he feels really good. swelling is still present. drinking lots of fluid. past hx: HTN, HLD, arthritis (hands, knees), SQCCa lip. SHx: nonsmoker nondrinker FHx: heart disease no kidney ds. NKDA Review of Systems Respiratory: Negative for shortness of breath. Gastrointestinal: Negative for abdominal pain. Genitourinary: Negative for dysuria, frequency and hematuria. Objective BP 108/60 Pulse 84 Temp 99.4 ??F (37.4 ??C) Ht 5' 5 (1.651 m) Wt 235 lb (107 kg) BMI 39.11 kg/m?? BSA 2.22 m?? Physical Exam Constitutional: He is oriented to person, place, and time. He appears well- developed and well-nourished. No distress. HENT: Head: Normocephalic and atraumatic. Eyes: Conjunctivae are normal. Pupils are equal, round, and reactive to light. Neck: Normal range of motion. No thyromegaly present. Cardiovascular: Normal rate and regular rhythm. Exam reveals no gallop and no friction rub. Pulmonary/Chest: Effort normal and breath sounds normal. He has no rales. Abdominal: Soft. Bowel sounds are normal. There is no tenderness. Musculoskeletal: He exhibits edema. Lymphadenopathy: He has no cervical adenopathy. Neurological: He is alert and oriented to person, place, and time. Skin: Skin is warm and dry. No rash noted. Psychiatric: He has a normal mood and affect. trace edema Recent Labs: Lab Results Component Value Date EGFR 17 (L) 04/29/2017 EGFR 20 (L) 04/29/2017 CREATININE 2.8 08/12/2017 CREATININEUR 51 04/29/2017 PROTCREATU 451 (H) 04/29/2017 GLUCOSE 87 04/29/2017 GLUCOSE NEGATIVE 04/29/2017 PTH 286 (H) 04/22/2017 HCT 25.2 (L) 04/29/2017 BUN 92 (H) 04/29/2017 NA 138 04/29/2017 K 3.9 04/29/2017 CL 101 04/29/2017 CO2 22 04/29/2017 ALBUMIN 3.5 (L) 04/29/2017 CA 8.2 (L) 04/29/2017 06/12/18 Cr 2.1, egfr 32, alt 30, Hb 9.1, plt 136 06/1518 Cr 2.0, egfr 32, Upro 270 Impression: 1. 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 positive ANH, PANCA, high ESR, blood and proteinin the urine. this seems to be getting better. He is on pdn 7.5. Reduce to 5. on cellcept 500 bid and stay on this. anca negative 01/26 eating okay. MPA improving. no more blood [...] too high. he should lose weight. 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 checko n the pneumovax. Plan wean pdn. 5 daily stay on cellcept 500 bid rfp q6wk and panca next visit RTC in 3 months Assessment/Plan Diagnoses and all orders for this visit: Microscopic polyangiitis Essential (primary) hypertension Chronic kidney disease stage 4 Blood Pressure for this visit is 108/60. Follow up plan to address blood pressure is okay. Body mass index is 39.11 kg/m??. Follow up plan to address BMI is high. See above. Follow up plan to addresstobacco use is nonsmoker. documented in this encounter Plan of Treatment Not on file documented as of this encounter Visit Diagnoses Diagnosis Microscopic polyangiitis (CMS-HCC)- Primary Essential (primary) hypertension Chronic kidney disease stage 4 (CMS-HCC) documented in this encounter Care Teams Ribbon Inker Relationship Specialty Start Date End Date Bia Oneill MD [address] [phone] PCP - General Internal Medicine 07/16/18 documented as of this encounter
--- OUTSIDE RECORDS SUMMARY | 2024-04-04 01:17 | XMS_ITS | Encounter Summary ---
Author Organization [facility] Phys[facility] Lynnette utibrittany Address [address] [place] [address] Phone Care Team Providers Care Ash Worker Name Role Phone Bia Oneill MD Primary Care Provider [phone] Reason for Visit * Reason Comments Med Refill Encounter Details Date Type Department Care Team (Late st Contact Info) Description 10/16/2019 [address]ill [facility] Nephrology and Hypertension [address] [place] [address], [address] [place] [address] Gilmer Barnard MD [address] [facility], [address] [place] [address] Social History Tobacco Use Types Packs/Day Years [...] on filedocumented in this encounter Care Teams Ash Worker Relationship Specialty Start Date End Date Bia Oneill MD 2043 [facility] 15 [place] [address] PCP - General Internal Medicine 07/16/18 documented as of this encounter
--- OUTSIDE RECORDS SUMMARY | 2024-04-04 01:17 | XMS_ITS | Encounter Summary ---
Author Organization [facility] Physician Lynnette utibrittany Address [address] [place] [address] Phone Care Team Providers Care Manager Supply Chain Name Role Phone Bia Oneill MD Primary Care Provider [phone] Reason for Visit * Reason Comments Med Refill Encounter Details Date Type Department Care Team (Late st Contact Info) Description 09/11/2019 Refill [facility] Nephrology and Hypertension [address] [place] [address], [address] [place] [address] Gilmer Barnard MD [address] [facility], [address] [place] [address] Social History Tobacco Use Types Packs/Day Years [...] on filedocumented in this encounter Care Teams Manager Supply Chain Relationship Specialty Start Date End Date Bia Oneill MD 2043 [facility] 15 [place] [address] PCP - General Internal Medicine 07/16/18 documented as of this encounter
--- OUTSIDE RECORDS SUMMARY | 2024-04-04 01:17 | XMS_ITS | Encounter Summary ---
Author Organization [facility] Physician Lynnette utibrittany Address [address] [place] [address] Phone Care Team Providers Care Fish Bin Tender Name Role Phone Bia Oneill MD Primary Care Provider [phone] Reason for Visit * Reason Comments Med Refill Encounter Details Date Type Department Care Team (Late st Contact Info) Description 05/22/2019 Refill [facility] Nephrology and Hypertension 1034 [facility], [address] [address] Yasmany Thomson MD [address] [facility], [address] [place] [address] Social History Tobacco Use Types Packs/Day Years [...] on filedocumented in this encounter Care Teams Fish Bin Tender Relationship Specialty Start Date End Date Bia Oneill MD [address] [facility] 15 [place] [address] PCP - General Internal Medicine 07/16/18 documented as of this encounter
--- OUTSIDE RECORDS SUMMARY | 2024-04-04 01:17 | XMS_ITS | Encounter Summary ---
Author Organization [facility] utibrittany Address [address] [place] [address] Phone Care Team Providers Care Media Relations Manager Name Role Phone Bia Oneill MD Primary Care Provider [phone] Reason for Visit * Reason Comments Med Refill Encounter Details Date Type Department Care Team (Late st Contact Info) Description 08/12/[address] [facility] Nephrology and Hypertension [address] [place] [address], [address] [place] [address] Gilmer Barnard MD 1034 [address] [facility], [address] [place] [address] Social History Tobacco Use Types Packs/Day Years [...] on filedocumented in this encounter Care Teams Media Relations Manager Relationship Specialty Start Date End Date Bia Oneill MD 2043 [facility] 15 [place] [address] PCP - General Internal Medicine 07/16/18 documented as of this encounter
--- OUTSIDE RECORDS SUMMARY | 2024-04-04 01:17 | XMS_ITS | Encounter Summary ---
Author Organization [facility] utibrittany Address [address] [place] [address] Phone Care Team Providers Care Photographic Equipment Inspector Name Role Phone Bia Oneill MD Primary Care Provider [phone] Reason for Visit * Reason Comments Med Refill Encounter Details Date Type Department Care Team (Late st Contact Info) Description 07/17/2019 Refill [facility] Nephrology and Hypertension 1034 [facility], [address] [address] Gilmer Barnard MD 1034 [address] [facility], [address] [place] [address] Social History Tobacco Use Types Packs/Day Years [...] on filedocumented in this encounter Care Teams Photographic Equipment Inspector Relationship Specialty Start Date End Date Bia Oneill MD 2043 [facility] 15 [place] [address] PCP - General Internal Medicine 07/16/18 documented as of this encounter
--- OUTSIDE RECORDS SUMMARY | 2024-04-04 01:17 | XMS_ITS | Encounter Summary ---
Author Organization [facility] utibrittany Address [address] [place] [address] Phone Care Team Providers Care Network Security Consultant Name Role Phone Bia Oneill MD Primary Care Provider [phone] Reason for Visit * Reason Comments Med Refill Encounter Details Date Type Department Care Team (Late st Contact Info) Description 01/25/2019 Refill [facility] Nephrology and Hypertension [address] [place] [address], [address] [place] [address] Gilmer Barnard MD 1034 [address] [facility], [address] [place] [address] Social History Tobacco Use Types Packs/Day Years [...] on filedocumented in this encounter Care Teams Network Security Consultant Relationship Specialty Start Date End Date Bia Oneill MD 2043 [facility] 15 [place] [address] PCP - General Internal Medicine 07/16/18 documented as of this encounter
--- OUTSIDE RECORDS SUMMARY | 2024-04-04 01:17 | XMS_ITS | Encounter Summary ---
Author Organization [facility] welch Address [address] [place] [address] Phone Care Team Providers Care Talent Development Specialist Name Role Phone Bia Oneill MD Primary Care Provider [phone] Encounter Details Date Type Department Care Team (Late st Contact Info) Description 11/18/2019 11:45 AM CDT Office Visit [facility] Nephrology and Hypertension [address] [place] [address], [address] [place] [address] Gilmer Barnard MD 1034 [address] [facility], [address] [place] [address] Microscopic polyangiitis (CMS-HCC) (Primary Dx); Essential (primary) hypertension; Rib pain Social History Tobacco Use Types Packs/Day Years [...] Sign Reading Time Taken Comments Blood Pressure 160/80 11/18/2019 12:12 PM CDT Pulse 84 11/18/2019 12:12 PM CDT Temperature 36.8 ??C (98.3 ??F) 11/18/2019 12:12 PM C DT Respiratory Rate - - Oxygen Saturation - - Inhaled Oxygen Concentration - - Weight 100 kg (221 lb) 11/18/2019 12:12 PM CDT Height 165.1 cm (5' 5 ) 11/18/2019 12:12 PM CDT Body Mass Index 36.78 11/18/2019 12:12 PM CDT documented in this encounter Progress Notes * Gilmer Barnard MD - 11/18/2019 11:45 AM CDT Britton Nielsen is a pleasant 64 y.o.male. Mr. Nielsen is a 62-year-old, male who was in [facility]. 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 He is off the cellcept he has no blood in the urine. no bloody sputum. He had some lower right back. He had burning with urination. He went to [place] [facility] and had a CT scan . Told it was gas . The pain never went away. Using tramadol for this. Two weeks ago his pain started radiating up the mid axillary line Close to his arm pit. Sharp. Increases with deep breath ortwisting his torso. Worst in the morning. He has been working at home to keep busy but not heavy lifting, He developed shingles in may. No recurrence. He has no gi sx and wants to stop the PPI. This is okay. No bloody or black stools, no nausea. Hasn't needed shots lately from Dr Moser energy level is good swelling is still present and stable. drinking lots of fluid. past hx: HTN, HLD, arthritis (hands, knees), SQCCa lip. SHx: nonsmoker nondrinker FHx: heart disease no kidney ds. NKDA ROS Constitutional: Negative except as above Skin: Negative except as above Pulmonary: Negative except as above Urologic: Negative except as above BP 160/80 Pulse 84 Temp 98.3 ??F (36.8 ??C) Ht 5' 5 (1.651 m) Wt 221 lb (100 kg) BMI 36.78 kg/m?? BSA 2.14 m?? WDWN male in NAD Skin No rash Head NCAT Neck No nodes, No TMG Lungs Clear to Auscultation Chest wall tender in mid axillary line [...] 900 07/09/2019 Cr 2.4, gfr 27, CBC 6.2/10/179, UA negpro negbld Impression: 1. MPA renal [...] too high. he should lose weight. consider diet counselor or seeing PCP flu shot done. checko n the pneumovax. He may have radicular pain. He will see his PCP about this. Plan Same meds See PCP about the back pain RTC in 3 months Assessment/Plan Diagnoses and all orders for this visit: Microscopic polyangiitis Essential (primary) hypertension Chronic kidney disease stage 4 Blood Pressure for this visit is 160/80. Follow up plan to address blood pressure is okay. Body mass index is 36.78 kg/m??. Follow up plan to address BMI is high. See above. Follow up plan to addresstobacco use is nonsmoker. documented in this encounter Plan of Treatment Not on file documented as of this encounter Visit Diagnoses Diagnosis Microscopic polyangiitis (CMS-HCC)- Primary Essential (primary) hypertension Rib pain documented in this encounter Care Teams Talent Development Specialist Relationship Specialty Start Date End Date Bia Oneill MD [address] [phone] PCP - General Internal Medicine 07/16/18 documented as of this encounter
--- OUTSIDE RECORDS SUMMARY | 2024-04-04 01:17 | XMS_ITS | Encounter Summary ---
Author Organization [facility] utions Address [address] [place] [address] Phone Care Team Providers Care Media Relations Manager Name Role Phone Bia Oneill MD Primary Care Provider [phone] Encounter Details Date Type Department Care Team (Late st Contact Info) Description 02/15/2019 Orders Only [facility] Nephrology and Hypertension 1034 [facility], [address] [address] Gilmer Barnard MD 1034 [facility], [address] [place] [address] Social History Tobacco Use Types Packs/Day Years [...] Date End Date Bia Oneill MD 2043 [facility] 15 [place] [address] PCP - General Internal Medicine 07/16/18 documented as of this encounter
--- OUTSIDE RECORDS SUMMARY | 2024-04-04 01:17 | XMS_ITS | Encounter Summary ---
Author Organization [facility] Lynnette utibrittany Address [address] [place] [address] Phone Care Team Providers Care Manager Basketball Name Role Phone Unavailable Primary Care Provider Unavailabl e Encounter Details Date Type Department Care Team (Late st Contact Info) Description 12/02/2017 Legacy Encounter - Labs [facility] [address] [place], [place] [address] Gilmer Barnard MD 1034 [address] [facility], [place] [address] Social History Tobacco Use Types Packs/Day Years Used Date Smoking Tobacco: Never Assessed Sex and Gender Information Value Date Recorded Sex Assigned at Not on file Gender Identity Not on file Sexual Orientation Not on file documented as of this encounter Plan of Treatment Not on file documented as of this encounter Procedures Procedure Name Priority Date/Time Associated Diagnosis Comments MANUALLY ENTERED ORDER Routine 12/02/2017 12:00 AM CDT documented in this encounter Results * Manually Entered Order (12/02/2017 12:00 AM CDT) WBC 6.4 EXTERNAL L AB (NON-INTERFACE D) HEMOGLOBIN 8 EXTERNAL LAB (NON-INTERFACE D) Platelet Count 144 EXTER NAL LAB (NON-INTERFACE D) 12/02/2017 Gilmer Barnard MD LAB BLOOD ORDERABLES EXTERNAL LAB (NON-INTERFACED) documented in this encounter Visit Diagnoses Not on filedocumented in this encounter
--- OUTSIDE RECORDS SUMMARY | 2024-04-04 01:17 | XMS_ITS | Encounter Summary ---
Author Organization [facility] Lynnette utibrittany Address [address] [place] [address] Phone Care Team Providers Care Nailing Machine Feeder Name Role Phone Bia Oneill MD Primary Care Provider [phone] Encounter Details Date Type Department Care Team (Late st Contact Info) Description 06/01/[address] [facility] Nephrology and Hypertension 1034 [address] [facility], [address] [place] [address] Gilmer Barnard MD 1034 [address] [facility], [address] [place] [address] Social History Tobacco Use Types Packs/Day Years [...] Telephone Encounter - Gilmer Barnard MD - 06/03/2019 5:19 PM CST I reviewed literature on maintenance therapy. He has been on MT since 07/2017 so almost 2 years. I think we can stop (rec is 12 to 24months). I would normally taper but he can't use mtx due to ckd andrituxan makes no sense and cant take aza so will give a short pdn cycle. Long discussion with patient. Check labs in a month. Polly please mail pt a generic slip for renal panel, urine protein, and P Anca. * Telephone Encounter - Gilmer Barnard MD - 06/01/2019 9:56 PM CST I talked with patient. He developed swollen hands and blisters. Responded to prednisone. Now better. No more azathioprine since. He has been on immunosuppressives for 2 years now. anca negative earlyin 2018. So in remission at least that long. recent suggestions are 12 to 24 months of maintainence therapy and he has been on maintenance tx for about 20 months. I think we can stop the therapy and watch the numbers. * Telephone Encounter - Apple Barnard - 06/01/2019 11:06 AM CST Pt called er: reaction to new med HEP rx'd. Pt stated that he had to go to the ER last week with redness and blisters on his hands. Pt stated it felt like a sunburn and it was very painful. Please call pt as he is not taking new rx right now. documented in this encounter Plan of Treatment Not on file documented as of this encounter Visit Diagnoses Not on filedocumented in this encounter Care Teams Nailing Machine Feeder Relationship Specialty Start Date End Date Bia Oneill MD [address] [phone] PCP - General Internal Medicine 07/16/18 documented as of this encounter
--- OUTSIDE RECORDS SUMMARY | 2024-04-04 01:17 | XMS_ITS | Encounter Summary ---
Author Organization [facility] Lynnette utibrittany Address [address] [place] [address] Phone Care Team Providers Care Gas Line Installer Name Role Phone Bia Oneill MD Primary Care Provider Encounter Details Date Type Department Care Team (Late st Contact Info) Description 09/09/2019 Orders Only [facility] Nephrology and Hypertension 1034 [facility], [address] [address] Gilmer Barnard MD 1034 [facility], SUITE [facility] [place] [address] Social History Tobacco Use Types Packs/Day Years [...] on filedocumented in this encounter Care Teams Gas Line Installer Relationship Specialty Start Date End Date Bia Oneill MD 2043 [facility] 15 [place] [address] PCP - General Internal Medicine 07/16/18 documented as of this encounter
--- OUTSIDE RECORDS SUMMARY | 2024-04-04 01:17 | XMS_ITS | Encounter Summary ---
Author Organization [facility] Lynnette utibrittany Address [address] [place] [address] Phone Care Team Providers Care Dancing Master Name Role Phone Bia Oneill MD Primary Care Provider [phone] Encounter Details Date Type Department Care Team (Late st Contact Info) Description 01/27/2019 11:00 AM CDT Office Visit [facility] Nephrology and Hypertension [address] [place] [address], [address] [place] [address] Gilmer Barnard MD 1034 [address] [facility], [address] [place] [address] Microscopic polyangiitis (CMS-HCC) (Primary Dx); Essential (primary) hypertension; Chronic kidney disease stage 3 (CMS-HCC); Anemia of chronic renal failure Social History Tobacco Use Types Packs/Day Years [...] Sign Reading Time Taken Comments Blood Pressure 128/64 01/27/2019 11:16 AM CDT Pulse 84 01/27/2019 11:16 AM CDT Temperature 37.2 ??C (98.9 ??F) 01/27/2019 11:16 AM C DT Respiratory Rate - - Oxygen Saturation - - Inhaled Oxygen Concentration - - Weight 108 kg (239 lb) 01/27/2019 11:16 AM CDT Height 165.1 cm (5' 5 ) 01/27/2019 11:16 AM CDT Body Mass Index 39.77 01/27/2019 11:16 AM CDT documented in this encounter Progress Notes * Gilmer Barnard MD - 01/27/2019 11:00 AM CDT Britton Nielsen is a pleasant 63 y.o.male. Mr. Nielsen is a 62-year-old, male who was in [facility]. 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 he has no blood in the urine. occasional burning every few weeks one time if he has to hold it no bloody sputum. Occasionally gets breathy if he walks a lot or goes up steps. Gets procrit once a month with Dr Moser on cellcept 500 bid and off pdn. On immunosupp for 18 months (ctx mar [...] above Urologic: Negative except as above BP 128/64 Pulse 84 Temp 98.9 ??F (37.2 ??C) Ht 5' 5 (1.651 m) Wt 239 lb (108 kg) BMI 39.77 kg/m?? BSA 2.23 m?? WDWN male in NAD Skin No [...] 27, Upro 200, CBC 5.8/8.6/149, ANCA neg Impression: 1. 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 positive ANH, PANCA, high ESR, blood and proteinin the urine. this seems to be getting better. Off prednisone. rfp and upro and anca in 6 weeks on cellcept 500 bid and stay on this. Until next visit. That will be the 2 year aniversary eating okay. MPA improving. no more blood [...] too high. he should lose weight. consider gm video or seeing PCP flu shot done. checko n the pneumovax. Plan stay on cellcept 500 bid RTC in 3 months Assessment/Plan Diagnoses and all orders for this visit: Microscopic polyangiitis Essential (primary) hypertension Chronic kidney disease stage 4 Blood Pressure for this visit is 128/64. Follow up plan to address blood pressure is okay. Body mass index is 39.77 kg/m??. Follow up plan to address BMI is high. See above. Follow up plan to addresstobacco use is nonsmoker. documented in this encounter Plan of Treatment Not on file documented as of this encounter Visit Diagnoses Diagnosis Microscopic polyangiitis (CMS-HCC)- Primary Essential (primary) hypertension Chronic kidney disease stage 3 (CMS-HCC) Anemia of chronic renal failure documented in this encounter Care Teams Dancing Master Relationship Specialty Start Date End Date Bia Oneill MD [address] [phone] PCP - General Internal Medicine 07/16/18 documented as of this encounter
--- OUTSIDE RECORDS SUMMARY | 2024-04-04 01:17 | XMS_ITS | Encounter Summary ---
Author Organization [facility] Lynnette utions Address [address] [place] [address] Phone Care Team Providers Care Table Operator Name Role Phone Bia Oneill MD Primary Care Provider [phone] Encounter Details Date Type Department Care Team (Late st Contact Info) Description 04/27/2019 Telephone [facility] Nephrology and Hypertension 1034 [address] [facility], [address] [place] [address] Gilmer Barnard MD 1034 [address] [facility], [address] [place] [address] Social History Tobacco Use Types Packs/Day Years [...] * Telephone Encounter - Rosalina Barnard - 04/27/2019 2:54 PM CST done * Telephone Encounter - Gilmer Barnard MD - 04/27/2019 1:04 PM CST Please let him know I [facility] * Telephone Encounter - Polly Blevins - 04/27/2019 9:20 AM CST Pt called to know about status of Rx refill from 04-23-19 to new pharmacy. Endy documented in this encounter Plan of Treatment Not on file documented as of this encounter Visit Diagnoses Not on filedocumented in this encounter Care Teams Table Operator Relationship Specialty Start Date End Date Bia Oneill MD [address] [phone] PCP - General Internal Medicine 07/16/18 documented as of this encounter
--- OUTSIDE RECORDS SUMMARY | 2024-04-04 01:17 | XMS_ITS | Encounter Summary ---
Author Organization [facility] Lynnette utibrittany Address [address] [place] [address] Phone Care Team Providers Care Hand I Thermal Cutter Name Role Phone Bia Oneill MD Primary Care Provider [phone] Reason for Visit * Reason Onset Date Comments Med Refill Med Refill 07/26/2019 Encounter Details Date Type Department Care Team (Late st Contact Info) Description 07/24/2019 Telephone [facility] Nephrology and Hypertension 1034 [address] [facility], [address] [address] Yasmany Thomson MD 1034 [address] [facility], SUITE [facility] [place] [address] Med Refill; Med Refill Social History Tobacco Use Types Packs/Day Years [...] encounter Miscellaneous Notes * Telephone Encounter - Apple Barnard MA - 07/26/2019 10:12 AM CDT Pt called c/o low back pain, problems urinating and pain under his arms and chest on deep breaths. HEP consulted. Per HEP pt should go to the ER. Informed pt to go to the ER. Pt verbalized understanding. documented in this encounter Plan of Treatment Not on file documented as of this encounter Visit Diagnoses Not on filedocumented in this encounter Care Teams Hand I Thermal Cutter Relationship Specialty Start Date End Date Bia Oneill MD [address] [phone] PCP - General Internal Medicine 07/16/18 documented as of this encounter
--- OUTSIDE RECORDS SUMMARY | 2024-04-04 01:17 | XMS_ITS | Encounter Summary ---
Author Organization [facility] Lynnette utibrittany Address [address] [place] [address] Phone Care Team Providers Care Cigar Making Machine Supervisor Name Role Phone Bia Oneill MD Primary Care Provider [phone] Reason for Visit * Reason Comments Med Refill Encounter Details Date Type Department Care Team (Late st Contact Info) Description 06/20/2019 Refill [facility] Nephrology and Hypertension 1034 [facility], [address] [address] Yasmany Thomson MD 1034 [facility], [address] [place] [address] Social History Tobacco Use Types Packs/Day Years [...] on filedocumented in this encounter Care Teams Cigar Making Machine Supervisor Relationship Specialty Start Date End Date Bia Oneill MD 2043 [facility] 15 [place] [address] PCP - General Internal Medicine 07/16/18 documented as of this encounter
--- OUTSIDE RECORDS SUMMARY | 2024-04-04 01:17 | XMS_ITS | Encounter Summary ---
Author Organization [facility] Lynnette utibrittany Address [address] [place] [address] Phone Care Team Providers Care Motorcycle Mechanic Name Role Phone Bia Oneill MD Primary Care Provider [phone] Reason for Visit * Reason Comments Med Refill Encounter Details Date Type Department Care Team (Late st Contact Info) Description 07/24/2019 Refill [facility] Nephrology and Hypertension [address] [place] [address], [address] [place] [address] Gilmer Barnard MD [address] [facility], [address] [place] [address] Social History Tobacco Use Types Packs/Day Years [...] on filedocumented in this encounter Care Teams Motorcycle Mechanic Relationship Specialty Start Date End Date Bia Oneill MD 2043 [facility] 15 [place] [address] PCP - General Internal Medicine 07/16/18 documented as of this encounter
--- OUTSIDE RECORDS SUMMARY | 2024-04-04 01:17 | XMS_ITS | Encounter Summary ---
Author Organization [facility] Lynnette utibrittany Address [address] [place] [address] Phone Care Team Providers Care Local Sales Manager Name Role Phone Unavailable Primary Care Provider Unavailabl e Encounter Details Date Type Department Care Team (Late st Contact Info) Description 03/23/2018 Legacy Encounter - Labs HISTORICAL CONVERSION CENTRAL [address] [place], [place] [id number] Gilmer Barnard MD 1034 [address] [facility], [place] [address] Social History Tobacco Use Types Packs/Day Years [...] Associated Diagnosis Comments MANUALLY ENTERED ORDER Routine 03/23/2018 12:00 AM NEUROSURGEON documented in this encounter Results * (ABNORMAL) Manually Entered Order (03/23/2018 12:00 AM NEUROSURGEON) HEMOGLOBIN 9.4(L) 12 - 16 EXTERNAL LAB (NON-INTERFACED ) 03/23/2018 Gilmer Barnard MD LAB BLOOD ORDERABLES EXTERNAL LAB (NON-INTERFACED) documented in this encounter Visit Diagnoses Not on filedocumented in this encounter
--- OUTSIDE RECORDS SUMMARY | 2024-04-04 01:17 | XMS_ITS | Encounter Summary ---
Author Organization [facility] Lynnette utions Address [address] [place] [address] Phone Care Team Providers Care Tilt Tray Driver Name Role Phone Bia Oneill MD Primary Care Provider [phone] Encounter Details Date Type Department Care Team (Late st Contact Info) Description 08/07/2018 Telephone [facility] Nephrology and Hypertension 1034 [address] [facility], [address] [place] [address] Gilmer Barnard MD 1034 [address] [facility], [address] [place] [address] Social History Tobacco Use Types Packs/Day Years [...] encounter Miscellaneous Notes * Telephone Encounter - Hannah Clifford - 08/10/2018 9:02 AM CDT I gave the message to the patient. RO * Telephone Encounter - Gilmer Barnard MD - 08/08/2018 3:29 PM CDT His insurance company called out for a prior authorization for twice a day. I guess they are the ones that are confused.Please let him know to just stay on one a day. When he needs a refill he can give us a call. * Telephone Encounter - Hannah Clifford - 08/07/2018 9:24 AM CDT The patient received you letter of 08/03/18 asking him to decrease protonix from 1 pill twice daily to 1 pill once daily. He has always taken only 1 pill once daily because these are the instructions on the bottle. Pls advise. documented in this encounter Plan of Treatment Not on file documented as of this encounter Visit Diagnoses Not on filedocumented in this encounter Care Teams Tilt Tray Driver Relationship Specialty Start Date End Date Bia Oneill MD 2043 [place] [phone] PCP - General Internal Medicine 07/16/18 documented as of this encounter
--- OUTSIDE RECORDS SUMMARY | 2024-04-04 01:17 | XMS_ITS | Encounter Summary ---
Author Organization [facility] Lynnette utibrittany Address [address] [place] [address] Phone Care Team Providers Care Production Or Plant Engineer Name Role Phone Bia Oneill MD Primary Care Provider [phone] Reason for Visit * Reason Comments Med Refill Encounter Details Date Type Department Care Team (Late st Contact Info) Description 11/13/2019 Refill [facility] Nephrology and Hypertension [address] [place] [address], [address] [place] [address] Gilmer Barnard MD [address] [facility], [address] [place] [address] Social History Tobacco Use Types Packs/Day Years [...] on filedocumented in this encounter Care Teams Production Or Plant Engineer Relationship Specialty Start Date End Date Bia Oneill MD 2043 [facility] 15 [place] [address] PCP - General Internal Medicine 07/16/18 documented as of this encounter
--- OUTSIDE RECORDS SUMMARY | 2024-04-04 01:17 | XMS_ITS | Encounter Summary ---
Author Organization [facility] Lynnette utibrittany Address [address] [place] [address] Phone Care Team Providers Care Receiving Manager Name Role Phone Bia Oneill MD Primary Care Provider [phone] Encounter Details Date Type Department Care Team (Late st Contact Info) Description 02/10/2019 Telephone [facility] Nephrology and Hypertension [address] [place] [address], [address] [place], [place] [id number] Gilmer Barnard MD [address] [facility], [address] [place] [address] Social History Tobacco Use Types Packs/Day Years [...] Notes * Telephone Encounter - Apple Barnard - 02/10/2019 10:01 AM CST Please call pharmacy re: mycophenalate rx. documented in this encounter Plan of Treatment Not on file documented as of this encounter Visit Diagnoses Not on filedocumented in this encounter Care Teams Receiving Manager Relationship Specialty Start Date End Date Bia Oneill MD 2043 [facility] [address] [place] [phone] PCP - General Internal Medicine 07/16/18 documented as of this encounter
--- OUTSIDE RECORDS SUMMARY | 2024-04-04 01:17 | XMS_ITS | Encounter Summary ---
Author Organization [facility] Lynnette welch Address [address] [place] [address] Phone Care Team Providers Care Public Health Specialist Name Role Phone Unavailable Primary Care Provider Unavailabl e Encounter Details Date Type Department Care Team (Late st Contact Info) Description 02/06/2018 Legacy Encounter - Labs HISTORICAL CONVERSION CENTRAL [address] [place] [address] Gilmer Barnard MD 1034 [facility], [address] [address] Social History Tobacco Use Types Packs/Day Years [...] Associated Diagnosis Comments MANUALLY ENTERED ORDER Routine 02/06/2018 12:00 AM JIG AND FIXTURE BUILDER documented in this encounter Results * (ABNORMAL) Manually Entered Order (02/06/2018 12:00 AM JIG AND FIXTURE BUILDER) Creatinine 2.2(H) 0.5 - 1.3 EXTERNAL LAB (NON-INTERFAC ED) Estimated Glomerular Filtration Rate (eGFR) 30(L) 60 - 100 EXTERNAL LAB (NON-INTERFAC ED) Alanine Aminotransferase (ALT), Serum/Plasma 21 12 - 78 EXTERNAL LAB (NON-INTERFAC ED) PTH, INTACT 40 14 - 72 EXTERNAL LAB (NON-INTERFAC ED) Vitamin D (25-OH) 36 30 - 100 EX TERNAL LAB (NON-INTERFAC ED) HEMOGLOBIN 8(L) 12 - 16 EXTERNAL LAB (NON-INTERFAC ED) Platelet Count 132 EXTER NAL LAB (NON-INTERFAC ED) Potassium 3.1 EXTERNAL L AB (NON-INTERFAC ED) CALCIUM 5.9 EXTERNAL L AB (NON-INTERFAC ED) LDL 96 0 - 130 EXTERNAL L AB (NON-INTERFAC ED) Cholesterol, HDL 39 10 - 50 EXT ERNAL LAB (NON-INTERFAC ED) TRIGLYCERIDES 176(H) 0 - 150 LOGGING WORKER AL LAB (NON-INTERFAC ED) 02/06/2018 Gilmer Barnard MD LAB BLOOD ORDERABLES EXTERNAL LAB (NON-INTERFACED) documented in this encounter Visit Diagnoses Not on filedocumented in this encounter
--- OUTSIDE RECORDS SUMMARY | 2024-04-04 01:17 | XMS_ITS | Encounter Summary ---
Author Organization [facility] Lynnette utions Address [address] [place] [address] Phone Care Team Providers Care Entry Level Name Role Phone Bia Oneill MD Primary Care Provider [phone] Encounter Details Date Type Department Care Team (Late st Contact Info) Description 10/21/2018 Telephone [facility] Nephrology and Hypertension [address] [facility], [address] [place] [address] Gilmer Barnard MD [address] [facility], [address] [place] [address] Social History Tobacco Use Types Packs/Day Years [...] * Telephone Encounter - Rosalina Barnard - 10/22/2018 9:42 AM CDT done * Telephone Encounter - Gilmer Barnard MD - 10/21/2018 5:09 PM CDT Please print up the labslip from outpatent visit from June and fax to the anali lab. Please note on there that this is supposed to be a standing order for every 3 months. He was supposed to take it in but I think he lost it. He is going tomorrow or Friday I think. documented in this encounter Plan of Treatment Not on file documented as of this encounter Visit Diagnoses Not on filedocumented in this encounter Care Teams Entry Level Relationship Specialty Start Date End Date Bia Oneill MD [address] [phone] PCP - General Internal Medicine 07/16/18 documented as of this encounter
--- OUTSIDE RECORDS SUMMARY | 2024-04-04 01:17 | XMS_ITS | Encounter Summary ---
Author Organization [facility] Lynnette utibrittany Address [address] [place] [address] Phone Care Team Providers Care Japanese Interpreter Name Role Phone Bia Oneill MD Primary Care Provider [phone] Encounter Details Date Type Department Care Team (Late st Contact Info) Description 05/06/2019 11:15 AM PRODUCE DEPARTMENT SUPERVISOR Office Visit [facility] Nephrology and Hypertension [address] [place] [address], [address] [place] [address] Gilmer Barnard MD [address] [facility], [address] [place] [address] Microscopic polyangiitis (CMS-HCC) (Primary Dx); Essential (primary) hypertension; Chronic kidney disease stage 3 (CMS-HCC) Social [...] Sign Reading Time Taken Comments Blood Pressure 122/60 05/06/2019 11:45 AM PRODUCE DEPARTMENT SUPERVISOR Pulse 84 05/06/2019 11:45 AM PRODUCE DEPARTMENT SUPERVISOR Temperature 37.4 ??C (99.4 ??F) 05/06/2019 11:[address] Respiratory Rate - - Oxygen Saturation - - Inhaled Oxygen Concentration - - Weight 103 kg (227 lb) 05/06/2019 11:45 AM PRODUCE DEPARTMENT SUPERVISOR Height 165.1 cm (5' 5 ) 05/06/2019 11:45 AM PRODUCE DEPARTMENT SUPERVISOR Body Mass Index 37.77 05/06/2019 11:45 AM PRODUCE DEPARTMENT SUPERVISOR documented in this encounter Progress Notes * Gilmer Barnard MD - 05/06/2019 11:15 AM CST Britton Nielsen is a pleasant 64 y.o.male. Mr. Nielsen is a 62-year-old, male who was in [facility]. 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 he has no blood in the urine. no bloody sputum. He ran out of mmf 2 weeks ago. He had a change in insurance policy and so change in pharmacy. They are asking for a prior auth. I sent one in and we are waiting. He went to Dr Oneill recently with an ear infection and so got drops and an antibiotic. augmentin 875 bid. He is doing much better now. Gets procrit once a month with Dr [...] above Urologic: Negative except as above BP 122/60 Pulse 84 Temp 99.4 ??F (37.4 ??C) [...] 4.1, plt 165, Cr 2.2, gfr 30, Impression: 1. 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 positive ANH, PANCA, high ESR, blood and proteinin the urine. this seems to be getting better. Off prednisone. Labs are stable. Decrease cellcept to one a day . 2. he has hypertension. his blood [...] too high. he should lose weight. consider sas bi developer or seeing PCP flu shot done. checko n the pneumovax. Plan reduce cellcept 500 daily RTC in 3 months Assessment/Plan Diagnoses and all orders for this visit: Microscopic polyangiitis Essential (primary) hypertension Chronic kidney disease stage 4 Blood Pressure for this visit is 122/60. Follow up plan to address blood pressure is okay. Body mass index is 37.77 kg/m??. Follow up plan to address BMI is high. See above. Follow up plan to addresstobacco use is nonsmoker. [facility] documented in this encounter Plan of Treatment Not on file documented as of this encounter Visit Diagnoses Diagnosis Microscopic polyangiitis (CMS-HCC)- Primary Essential (primary) hypertension Chronic kidney disease stage 3 (CMS-HCC) documented in this encounter Care Teams Japanese Interpreter Relationship Specialty Start Date End Date Bia Oneill MD [address] [phone] PCP - General Internal Medicine 07/16/18 documented as of this encounter
--- OUTSIDE RECORDS SUMMARY | 2024-04-04 01:17 | XMS_ITS | Encounter Summary ---
Author Organization [facility] Lynnette utibrittany Address [address] [place] [address] Phone Care Team Providers Care Natural Gas Inspector Name Role Phone Bia Oneill MD Primary Care Provider [phone] Encounter Details Date Type Department Care Team (Late st Contact Info) Description 05/03/2019 Telephone [facility] Nephrology and Hypertension [address] [place] [address], [address] [place] [address] Gilmer Barnard MD [address] [facility], [address] [place] [address] Social History Tobacco Use Types Packs/Day Years [...] Telephone Encounter - Gilmer Barnard MD - 05/06/2019 6:13 PM CST Cancel mycophenolate. Use azathio instead due to not being FDA approved. * Telephone Encounter - Apple Barnard - 05/03/2019 12:36 PM CST LMOR re: prior auth for pt's mycophenolate. Please call [phone]. Ref # [id number] documented in this encounter Plan of Treatment Not on file documented as of this encounter Visit Diagnoses Not on filedocumented in this encounter Care Teams Natural Gas Inspector Relationship Specialty Start Date End Date Bia Oneill MD [address] [place] [phone] PCP - General Internal Medicine 07/16/18 documented as of this encounter
--- OUTSIDE RECORDS SUMMARY | 2024-04-04 01:17 | XMS_ITS | Encounter Summary ---
Author Organization [facility] Lynnette utibrittany Address [address] [place] [address] Phone Care Team Providers Care Corner Brace Block Machine Operator Name Role Phone Bia Oneill MD Primary Care Provider [phone] Reason for Visit * Reason Comments Med Refill Encounter Details Date Type Department Care Team (Late st Contact Info) Description 08/19/2019 Refill [facility] Nephrology and Hypertension 1034 [facility], [address] [address] Gilmer Barnard MD [address] [facility], [address] [place] [address] Social History Tobacco Use Types Packs/Day Years [...] on filedocumented in this encounter Care Teams Corner Brace Block Machine Operator Relationship Specialty Start Date End Date Bia Oneill MD 2043 [facility] [address] [place] [phone] PCP - General Internal Medicine 07/16/18 documented as of this encounter
--- OUTSIDE RECORDS SUMMARY | 2024-04-04 01:17 | XMS_ITS | Encounter Summary ---
Author Organization [facility] Lynnette utibrittany Address [address] [place] [address] Phone Care Team Providers Care Draw Off Worker Name Role Phone Unavailable Primary Care Provider Unavailabl e Encounter Details Date Type Department Care Team (Late st Contact Info) Description 11/12/2017 Legacy Encounter - Labs HISTORICAL CONVERSION CENTRAL [address] [place] [address] Gilmer Barnard MD [address] [facility], [place] [phone] [place] [address] Social History Tobacco Use Types Packs/Day Years [...] Associated Diagnosis Comments MANUALLY ENTERED ORDER Routine 11/12/2017 12:00 AM CDT documented in this encounter Results * (ABNORMAL) Manually Entered Order (11/12/2017 12:00 AM CDT) Creatinine 2.1(H) 0.5 - 1.3 EXTERNAL LAB (NON-INTERFAC ED) Estimated Glomerular Filtration Rate (eGFR) 32(L) 60 - 100 EXTERNAL LAB (NON-INTERFAC ED) Alanine Aminotransferase (ALT), Serum/Plasma 16 12 - 78 EXTERNAL LAB (NON-INTERFAC ED) HEMOGLOBIN 8.2(L) 12 - 16 EXTERNAL LAB (NON-INTERFAC ED) 11/12/2017 Gilmer Barnard MD LAB BLOOD ORDERABLES EXTERNAL LAB (NON-INTERFACED) documented in this encounter Visit Diagnoses Not on filedocumented in this encounter
--- OUTSIDE RECORDS SUMMARY | 2024-04-04 01:17 | XMS_ITS | Encounter Summary ---
Author Organization [facility] Lynnette utibrittany Address [address] [place] [address] Phone Care Team Providers Care Child Care Giver Name Role Phone Bia Oneill MD Primary Care Provider [phone] Reason for Visit * Reason Comments Med Refill Encounter Details Date Type Department Care Team (Late st Contact Info) Description 04/13/2019 Refill [facility] Nephrology and Hypertension 1034 [facility], [address] [address] Yasmany Thomson MD 1034 [facility], [address] [place] [address] Social History Tobacco Use Types Packs/Day Years [...] on filedocumented in this encounter Care Teams Child Care Giver Relationship Specialty Start Date End Date Bia Oneill MD 2043 [facility] 15 [place] [phone] PCP - General Internal Medicine 07/16/18 documented as of this encounter
--- OUTSIDE RECORDS SUMMARY | 2024-04-04 01:18 | XMS_ITS | Encounter Summary ---
Author Organization [facility] Lynnette utibrittany Address [address] [place] [address] Phone Care Team Providers Care Md Allergy Immunology Name Role Phone Unavailable Primary Care Provider Unavailabl e Encounter Details Date Type Department Care Team (Late st Contact Info) Description 08/05/2017 Legacy Encounter - Labs HISTORICAL CONVERSION CENTRAL [address] [place] [address] Gilmer Barnard MD [address] [facility], [place] [address] [place] [address] Social History Tobacco Use Types Packs/Day Years [...] Associated Diagnosis Comments MANUALLY ENTERED ORDER Routine 08/05/2017 12:00 AM CDT documented in this encounter Results * (ABNORMAL) Manually Entered Order (08/05/2017 12:00 AM CDT) Creatinine 2.6(H) 0.5 - 1.3 EXTERNAL LAB Estimated Glomerular Filtration Rate (eGFR) 25(L) 60 - 100 EXTERNAL LAB WBC 4.5 EXTERNAL LAB HEMOGLOBIN 7.2 EXTERNAL LAB Platelet Count 118 EXTERNAL LAB Protein, Urine 1+ EXTERNAL LAB Urine Blood Neg EXTERNAL LAB 08/05/2017 Gilmer Barnard MD LAB BLOOD ORDERABLES EXTERNAL LAB documented in this encounter Visit Diagnoses Not on filedocumented in this encounter
--- OUTSIDE RECORDS SUMMARY | 2024-04-04 01:18 | XMS_ITS | Encounter Summary ---
Author Organization [facility] Phys[facility] Lynnette utibrittany Address [address] [place] [address] Phone Care Team Providers Care Umbrella Cutter Name Role Phone Unavailable Primary Care Provider Unavailabl e Encounter Details Date Type Department Care Team (Late st Contact Info) Description 04/29/2017 Legacy Encounter - Labs HISTORICAL CONVERSION CENTRAL [address] [place] [address] Gilmer Barnard MD [address] [facility], [place] [phone] [place] [address] Social History Tobacco Use Types Packs/Day Years Used Date Smoking Tobacco: Never Assessed Sex and Gender Information Value Date Recorded Sex Assigned at Not on file Gender Identity Not on file Sexual Orientation Not on file documented as of this encounter Plan of Treatment Not on file documented as of this encounter Procedures Procedure Name Priority Date/Time Associated Diagnosis Comments PROTEIN,TOTAL,RANDO M URINE Routine 04/29/2017 1:40 PM BUGGY RUNNER CLINICAL PDF REPORT [id number] Routine 04/29/2017 1:40 PM BUGGY RUNNER CBC (H/H, RBC, INDICES, WBC, PLT) Routine 04/29/2017 1:40 PM BUGGY RUNNER URINALYSIS, COMPLETE Routine 04/29/2017 1:40 PM BUGGY RUNNER RENAL FUNCTION PANEL (RFP) Routine 04/29/2017 1:40 PM BUGGY RUNNER documented in this encounter Results * Clinical Pdf Report [id number] (04/29/2017 1:40 PM BUGGY RUNNER) PDF EXTERNAL LAB 04/29/2017 1:40 PM BUGGY RUNNER 04/29/2017 1:42 PM BUGGY RUNNER Gilmer Barnard MD LAB BLOOD ORDERABLES Performing Organization Address [facility]/ZIP Co de Phone Number EXTERNAL LAB * (ABNORMAL) Protein,Total,Random Urine (04/29/2017 1:40 PM BUGGY RUNNER) Creatinine, Urine 51 20 - 370 mg/dL EXTERNAL LAB Protein/Creatin ine, Urine 451(H) 22 - 128 mg/g creat EXTERNAL LAB Protein, Urine 23 5 - 25 mg/dL EXTERNAL LAB 04/29/2017 1:40 PM BUGGY RUNNER 04/29/2017 1:42 PM BUGGY RUNNER Gilmer Barnard MD LAB URINE ORDERABLES Performing Organization Address [facility]/ZIP Co de Phone Number EXTERNAL LAB * (ABNORMAL) Urinalysis, Complete (04/29/2017 1:40 PM BUGGY RUNNER) Color of Urine YELLOW YELLOW EXTERNAL LAB Appearance of Urine CLEAR CLEAR EXTERNAL LAB Specific gravity of Urine 1.010 1.001 - 1.035 EXTERNAL LAB pH of Urine < OR = 5.0 5.0 - 8.0 EXTERNAL LAB Glucose, Urine NEGATIVE NEGATIVE EXTERNAL LAB Reducing substances, Urine CANCELED NEGATIVE % EXTERNAL LAB Comment:Result canceled by t he ancillary. Bilirubin, total, Urine NEGATIVE NEGATIVE EXTERNAL LAB Ketones, Urine NEGATIVE NEGATIVE EXTERNAL LAB Hemoglobin, Urine 1+(A) NEGATIVE EXTERNAL LAB Protein, Urine NEGATIVE NEGATIVE EXTERNAL LAB Nitrite, Urine NEGATIVE NEGATIVE EXTERNAL LAB Leukocyte esterase, Urine NEGATIVE NEGATIVE EXTERNAL LAB Leukocytes, Urine sediment NONE SEEN < OR = 5 /HPF EXTERNAL LAB Erythrocytes, Urine sediment 0-2 < OR = 2 /HPF EXTERNAL LAB Epithelial cells, squamous, Urine sediment NONE SEEN < OR = 5 /HPF EXTERNAL LAB Transitional cells, Urine sediment CANCELED < OR = 5 /HPF EXTERNAL LAB Comment:Result canceled by t he ancillary. Epithelial cells, renal, Urine sediment CANCELED < OR = 3 /HPF EXTERNAL LAB Comment:Result canceled by t he ancillary. Bacteria, Urine sediment NONE SEEN NONE SEEN /HPF EXTERNAL LAB Calcium oxalate crystals, Urine sediment CANCELED NONE OR FEW /HPF EXTERNAL LAB Comment:Result canceled by t he ancillary. Triple phosphate crystals, Urine sediment CANCELED NONE OR FEW /HPF EXTERNAL LAB Comment:Result canceled by t he ancillary. Urate crystals, Urine sediment CANCELED NONE OR FEW /HPF EXTERNAL LAB Comment:Result canceled by t he ancillary. Amorphous sediment, Urine sediment CANCELED NONE OR FEW /HPF EXTERNAL LAB Comment:Result canceled by t he ancillary. Crystals, Urine sediment CANCELED NONE SEEN /HPF EXTERNAL LAB Comment:Result canceled by t he ancillary. Hyaline casts, Urine sediment NONE SEEN NONE SEEN /LPF EXTERNAL LAB Granular casts, Urine sediment CANCELED NONE SEEN /LPF EXTERNAL LAB Comment:Result canceled by t he ancillary. Casts, Urine sediment CANCELED NONE SEEN /LPF EXTERNAL LAB Comment:Result canceled by t he ancillary. Yeast, Urine sediment CANCELED NONE SEEN /HPF EXTERNAL LAB Comment:Result canceled by t he ancillary. Service comment CANCELED EXTERNAL LAB Comment:Result canceled by t he ancillary. Service comment CANCELED EXTERNAL LAB Comment:Result canceled by t he ancillary. 04/29/2017 1:40 PM BUGGY RUNNER 04/29/2017 1:42 PM BUGGY RUNNER Gilmer Barnard MD LAB URINE ORDERABLES EXTERNAL LAB * (ABNORMAL) CBC (H/H, RBC, Indices, WBC, Plt) (04/29/2017 1:40 PM BUGGY RUNNER) Leukocytes, Blood 5.7 3.8 - 10.8 Thousand/u L EXTERNAL LAB Erythrocytes (RBC) 2.90(L) 4.20 - 5.80 Million/uL EXTERNAL LAB Hemoglobin (HGB) 8.4(L) 13.2 - 17.1 g/dL EXTERNAL LAB Hematocrit (HCT) 25.2(L) 38.5 - 50.0 % EXTERNAL LAB MCV 86.9 80.0 - 100.0 fL EXTERNAL LAB MCH 29.0 27.0 - 33.0 pg EXTERNAL LAB MCHC 33.3 32.0 - 36.0 g/dL EXTERNAL LAB Erythrocyte Distribution Width (RDW) 16.3(H) 11.0 - 15.0 % EXTERNAL LAB Platelets, Blood 160 140 - 400 Thousand/u L EXTERNAL LAB Platelet mean volume, Blood 10.5 7.5 - 12.5 fL EXTERNAL LAB 04/29/2017 1:40 PM BUGGY RUNNER 04/29/2017 1:42 PM BUGGY RUNNER Gilmer Barnard MD LAB BLOOD ORDERABLES Performing Organization Address City/[facility]/ZIP Co de Phone Number EXTERNAL LAB * (ABNORMAL) Renal Function Panel (04/29/2017 1:40 PM BUGGY RUNNER) Pathologist [facility] Glucose, Serum/Plasma 87 65 - 99 mg/dL EXTERNAL LAB Comment:Fasting reference in terval Urea nitrogen, Serum/Plasma (BUN) 92(H) 7 - 25 mg/dL EXTERNAL LAB Creatinine, Serum/Plasma 3.52(H) 0.70 - 1.25 mg/dL EXTERNAL LAB Comment: For patients >49 years of age, the reference limit for Creatinine is approximately 13% higher for people identified as -Russian. eGFR, non 17(L) > OR = 60 mL/min/1. 73m2 EXTERNAL LAB eGFR, 20(L) > OR = 60 mL/min/1. 73m2 EXTERNAL LAB Urea nitrogen/Creatinin e, Serum/Plasma 26(H) 6 - 22 (calc) EXTERNAL LAB Sodium, Serum/Plasma 138 135 - 146 mmol/L EXTERNAL LAB Potassium, Serum/Plasma 3.9 3.5 - 5.3 mmol/L EXTERNAL LAB Chloride, Serum/Plasma 101 98 - 110 mmol/L EXTERNAL LAB Carbon dioxide CO2), total, Serum/Plasma 22 20 - 31 mmol/L EXTERNAL LAB Calcium, Serum/Plasma 8.2(L) 8.6 - 10.3 mg/dL EXTERNAL LAB Phosphate, Serum/Plasma 4.1 2.5 - 4.5 mg/dL EXTERNAL LAB Albumin, Serum/Plasma 3.5(L) 3.6 - 5.1 g/dL EXTERNAL LAB 04/29/2017 1:40 PM BUGGY RUNNER 04/29/2017 1:42 PM BUGGY RUNNER Gilmer Barnard MD LAB BLOOD ORDERABLES EXTERNAL LAB documented in this encounter Visit Diagnoses Not on filedocumented in this encounter
--- OUTSIDE RECORDS SUMMARY | 2024-04-04 01:18 | XMS_ITS | Encounter Summary ---
Author Organization Yoli Physician Lynnette utibrittany Address [address] [place] [address] Phone Care Team Providers Care Cylinder Die Machine Operator Name Role Phone Unavailable Primary Care Provider Unavailabl e Encounter Details Date Type Department Care Team (Late st Contact Info) Description 04/09/2017 Legacy Encounter - Labs HISTORICAL CONVERSION CENTRAL [address] [place], [place] [id number] Gilmer Barnard MD [address] [facility] [place] [address] Social History Tobacco Use Types Packs/Day Years [...] Associated Diagnosis Comments MANUALLY ENTERED ORDER Routine 04/09/2017 12:00 AM TIE FASTENER documented in this encounter Results * (ABNORMAL) Manually Entered Order (04/09/2017 12:00 AM TIE FASTENER) Creatinine 4.4(H) 0.5 - 1.3 EXTERNAL LAB Estimated Glomerular Filtration Rate (eGFR) 14(L) 60 - 100 EXTERNAL LAB 04/09/2017 Gilmer Barnard MD LAB BLOOD ORDERABLES EXTERNAL LAB documented in this encounter Visit Diagnoses Not on filedocumented in this encounter
--- OUTSIDE RECORDS SUMMARY | 2024-04-04 01:18 | XMS_ITS | Encounter Summary ---
Author Organization Yoli Physician Lynnette welch Address [address] [place] [address] Phone Care Team Providers Care Well Service Pump Equipment Operator Name Role Phone Unavailable Primary Care Provider Unavailabl e Encounter Details Date Type Department Care Team (Late st Contact Info) Description 03/26/2017 Legacy Encounter - Labs HISTORICAL CONVERSION CENTRAL [address] [place] [address] Gilmer Barnard MD 1034 [facility], [address] [address] Social History Tobacco Use Types Packs/Day Years [...] Associated Diagnosis Comments MANUALLY ENTERED ORDER Routine 03/26/2017 12:00 AM MARKET GARDENER documented in this encounter Results * (ABNORMAL) Manually Entered Order (03/26/2017 12:00 AM MARKET GARDENER) Creatinine 6.7(H) 0.5 - 1.3 EXTERNAL LAB Estimated Glomerular Filtration Rate (eGFR) 8(L) 60 - 100 EXTERNAL LAB Protein/Creatinine, Urine 550 EXTERNAL LAB UR ABNORMAL PROT BAND 1 UIfx neg EXTERNAL LAB ELECTROPHORESIS SImx neg EXTERNAL LAB Protein, Urine Trace EXTERNAL LAB Urine Blood 2+ EXTERNAL LAB Complement C3, Serum/Plasma 109 EXTERNAL LAB Complement C4, Serum/Plasma 34 EXTERNAL LAB Complement total hemolytic CH50, Serum/Plasma >60 EXTERNAL LAB c-ANCA Titer Neg EXTERNAL LAB p-ANCA Titer 1:160 EXTERNAL LAB CRYOGLOBULIN QUALITATIVE Neg EXTERNAL LAB SM/NEWSPAPER DISTRIBUTOR SUPERVISOR AB >8 EXTERNAL LAB DNA double strand Ab, Serum Normal EXTERNAL LAB HEMOGLOBIN 8.7(L) 12 - 16 EXTERNAL LAB 03/26/2017 Gilmer Barnard MD LAB BLOOD ORDERABLES EXTERNAL LAB documented in this encounter Visit Diagnoses Not on filedocumented in this encounter
--- OUTSIDE RECORDS SUMMARY | 2024-04-04 01:18 | XMS_ITS | Encounter Summary ---
Author Organization [facility] ut[facility] Address [address] [place] [phone] Phone Care Team Providers Care Auxiliary Operator Name Role Phone Unavailable Primary Care Provider Unavailabl e Encounter Details Date Type Department Care Team (Late st Contact Info) Description 10/03/2017 Legacy Encounter - Labs HISTORICAL CONVERSION CENTRAL [address] [place], [place] [id number] Gilmer Barnard MD [address] [facility], [place] [address] [place] [address] Social History Tobacco Use Types Packs/Day Years [...] Associated Diagnosis Comments MANUALLY ENTERED ORDER Routine 10/03/2017 12:00 AM CDT documented in this encounter Results * (ABNORMAL) Manually Entered Order (10/03/2017 12:00 AM CDT) Creatinine 2.8(H) 0.5 - 1.3 EXTERNAL LAB Estimated Glomerular Filtration Rate (eGFR) 23(L) 60 - 100 EXTERNAL LAB HEMOGLOBIN 7.2(L) 12 - 16 EXTERNAL LAB 10/03/2017 Gilmer Barnard MD LAB BLOOD ORDERABLES EXTERNAL LAB documented in this encounter Visit Diagnoses Not on filedocumented in this encounter
--- OUTSIDE RECORDS SUMMARY | 2024-04-04 01:18 | XMS_ITS | Encounter Summary ---
Author Organization [facility] Address [address] [place] [address] Phone Care Team Providers Care Rooming House Operator Name Role Phone Unavailable Primary Care Provider Unavailabl e Encounter Details Date Type Department Care Team (Late st Contact Info) Description 06/12/2017 Legacy Encounter - Labs HISTORICAL CONVERSION CENTRAL [address] [place] [address] Gilmer Barnard MD [address] [facility], [place] [phone] [place] [address] Social History Tobacco Use Types Packs/Day Years [...] Associated Diagnosis Comments MANUALLY ENTERED ORDER Routine 06/12/2017 12:00 AM CDT MANUALLY ENTERED ORDER Routine 06/12/2017 12:00 AM CDT documented in this encounter Results * Manually Entered Order (06/12/2017 12:00 AM CDT) Protein/Creatin ine, Urine 1,000 EXTERNAL LAB 06/12/2017 Gilmer Barnard MD LAB BLOOD ORDERABLES EXTERNAL LAB * (ABNORMAL) Manually Entered Order (06/12/2017 12:00 AM CDT) Creatinine 2.9(H) 0.5 - 1.3 EXTERNAL LAB Estimated Glomerular Filtration Rate (eGFR) 22(L) 60 - 100 EXTERNAL LAB PTH, INTACT 184(H) 14 - 72 EXTERNAL LAB Vitamin D (25-OH) 25(L) 30 - 100 EXTERNAL LAB Potassium 5.1 EXTERNAL LAB LDL 93 0 - 130 EXTERNAL LAB Cholesterol, HDL 51(H) 10 - 50 EXTERNAL LAB TRIGLYCERIDES 155(H) 0 - 150 EXTERNAL LAB 06/12/2017 Gilmer Barnard MD LAB BLOOD ORDERABLES EXTERNAL LAB documented in this encounter Visit Diagnoses Not on filedocumented in this encounter
--- OUTSIDE RECORDS SUMMARY | 2024-04-04 01:18 | XMS_ITS | Encounter Summary ---
Author Organization [facility] Address [address] [place] [address] Phone Care Team Providers Care Field Sales Agent Name Role Phone Unavailable Primary Care Provider Unavailabl e Encounter Details Date Type Department Care Team (Late st Contact Info) Description 07/08/2017 Legacy Encounter - Labs HISTORICAL CONVERSION CENTRAL [address] [place] [address] Gilmer Barnard MD [address] [facility], [place] [phone] [place] [address] Social History Tobacco Use Types Packs/Day Years [...] Associated Diagnosis Comments MANUALLY ENTERED ORDER Routine 07/08/2017 12:00 AM CDT documented in this encounter Results * (ABNORMAL) Manually Entered Order (07/08/2017 12:00 AM CDT) Creatinine 2.6(H) 0.5 - 1.3 EXTERNAL LAB Estimated Glomerular Filtration Rate (eGFR) 25(L) 60 - 100 EXTERNAL LAB HEMOGLOBIN 8.8(L) 12 - 16 EXTERNAL LAB WBC 3.8 EXTERNAL LAB Protein, Urine 2+ EXTERNAL LAB Urine Blood 1+ EXTERNAL LAB 07/08/2017 Gilmer Barnard MD LAB BLOOD ORDERABLES EXTERNAL LAB documented in this encounter Visit Diagnoses Not on filedocumented in this encounter
--- OUTSIDE RECORDS SUMMARY | 2024-04-04 01:18 | XMS_ITS | Encounter Summary ---
Author Organization [facility] ut[facility]ittany Address [address] [place] [address] Phone Care Team Providers Care Pier Master Assistant Name Role Phone Unavailable Primary Care Provider Unavailabl e Encounter Details Date Type Department Care Team (Late st Contact Info) Description 08/19/2017 Legacy Encounter - Labs HISTORICAL CONVERSION CENTRAL [address] [place] [phone] Gilmer Barnard MD [address] [facility], [place] [address] [place] [address] Social History Tobacco Use Types Packs/Day Years [...] Associated Diagnosis Comments MANUALLY ENTERED ORDER Routine 08/19/2017 12:00 AM CDT documented in this encounter Results * (ABNORMAL) Manually Entered Order (08/19/2017 12:00 AM CDT) Creatinine 2.9(H) 0.5 - 1.3 EXTERNAL LAB Estimated Glomerular Filtration Rate (eGFR) 22(L) 60 - 100 EXTERNAL LAB Protein, Urine 1+ EXTERNAL LAB Urine Blood 1+ EXTERNAL LAB 08/19/2017 Gilmer Barnard MD LAB BLOOD ORDERABLES EXTERNAL LAB documented in this encounter Visit Diagnoses Not on filedocumented in this encounter
--- OUTSIDE RECORDS SUMMARY | 2024-04-04 01:18 | XMS_ITS | Encounter Summary ---
Author Organization [facility]te utibrittany Address [address] [place] [address] Phone Care Team Providers Care Superintendent Production Name Role Phone Unavailable Primary Care Provider Unavailabl e Encounter Details Date Type Department Care Team (Late st Contact Info) Description 09/04/2017 Legacy Encounter - Labs HISTORICAL CONVERSION CENTRAL [address] [place] [address] Gilmer Branard MD [address] [facility], [place] [address] Social History Tobacco Use Types Packs/Day Years [...] Associated Diagnosis Comments MANUALLY ENTERED ORDER Routine 09/04/2017 12:00 AM CDT documented in this encounter Results * Manually Entered Order (09/04/2017 12:00 AM CDT) WBC 6.9 EXTERNAL LAB HEMOGLOBIN 8.5 EXTERNAL LAB Platelet Count 89 EXTERNAL LAB 09/04/2017 Gilmer Barnard MD LAB BLOOD ORDERABLES EXTERNAL LAB documented in this encounter Visit Diagnoses Not on filedocumented in this encounter
--- OUTSIDE RECORDS SUMMARY | 2024-04-04 01:18 | XMS_ITS | Encounter Summary ---
Author Organization [facility] utibrittany Address [address] [place] [address] Phone Care Team Providers Care Cheesemaking Laborer Name Role Phone Unavailable Primary Care Provider Unavailabl e Encounter Details Date Type Department Care Team (Late st Contact Info) Description 05/15/2017 Legacy Encounter - Labs HISTORICAL CONVERSION CENTRAL [address] [place] [address] Gilmer Barnard MD [address] [facility], [place] [phone] [place] [address] Social History Tobacco Use Types Packs/Day Years [...] Associated Diagnosis Comments MANUALLY ENTERED ORDER Routine 05/15/2017 12:00 AM WOOD MILLING MACHINE HAND documented in this encounter Results * (ABNORMAL) Manually Entered Order (05/15/2017 12:00 AM WOOD MILLING MACHINE HAND) Creatinine 2.8(H) 0.5 - 1.3 EXTERNAL LAB Estimated Glomerular Filtration Rate (eGFR) 23(L) 60 - 100 EXTERNAL LAB HEMOGLOBIN 7.9(L) 12 - 16 EXTERNAL LAB WBC 157 EXTERNAL LAB Iron saturation, Serum/Plasma 9(L) 20 - 55 EXTERNAL LAB Lactate Dehydrogenase (LDH) 642 EXTERNAL LAB 05/15/2017 Gilmer Barnard MD LAB BLOOD ORDERABLES EXTERNAL LAB documented in this encounter Visit Diagnoses Not on filedocumented in this encounter
--- OUTSIDE RECORDS SUMMARY | 2024-04-04 01:18 | XMS_ITS | Encounter Summary ---
Author Organization [facility] Lynnette utibrittany Address [address] [place] [address] Phone Care Team Providers Care Joinery Patternmaker Name Role Phone Unavailable Primary Care Provider Unavailabl e Encounter Details Date Type Department Care Team (Late st Contact Info) Description 07/22/2017 Legacy Encounter - Labs HISTORICAL CONVERSION CENTRAL [address] [place], [place] [phone] Gilmer Barnard MD [address] [facility], [place] [address] Social History Tobacco Use Types Packs/Day Years [...] Associated Diagnosis Comments MANUALLY ENTERED ORDER Routine 07/22/2017 12:00 AM CDT documented in this encounter Results * (ABNORMAL) Manually Entered Order (07/22/2017 12:00 AM CDT) WBC 4.4 EXTERNAL LAB HEMOGLOBIN 7.1 EXTERNAL LAB Platelet Count 93 EXTERNAL LAB Creatinine 2.9(H) 0.5 - 1.3 EXTERNAL LAB Estimated Glomerular Filtration Rate (eGFR) 22(L) 60 - 100 EXTERNAL LAB 07/22/2017 Gilmer Barnard MD LAB BLOOD ORDERABLES EXTERNAL LAB documented in this encounter Visit Diagnoses Not on filedocumented in this encounter
--- OUTSIDE RECORDS SUMMARY | 2024-04-04 01:18 | XMS_ITS | Encounter Summary ---
Author Organization [facility] Lynnette utibrittany Address [address] [place] [address] Phone Care Team Providers Care Pump Room Operator Name Role Phone Unavailable Primary Care Provider Unavailabl e Encounter Details Date Type Department Care Team (Late st Contact Info) Description 08/12/2017 Legacy Encounter - Labs HISTORICAL CONVERSION CENTRAL [address] [place] [address] Gilmer Barnard MD [facility] [facility], [place] [phone] [place] [address] Social History Tobacco Use Types Packs/Day Years [...] Associated Diagnosis Comments MANUALLY ENTERED ORDER Routine 08/12/2017 12:00 AM CDT documented in this encounter Results * (ABNORMAL) Manually Entered Order (08/12/2017 12:00 AM CDT) WBC 4.7 EXTERNAL LAB HEMOGLOBIN 7.4 EXTERNAL LAB Platelet Count 95 EXTERNAL LAB Creatinine, Serum/Plasma 2.8 EXTERNAL LAB Neutrophil Cytoplasmic Ab (ANCA), Serum neg EXTERNAL LAB Estimated Glomerular Filtration Rate (eGFR) 23(L) 60 - 100 EXTERNAL LAB Protein, Urine 1+ EXTERNAL LAB Urine Blood Neg EXTERNAL LAB 08/12/2017 Gilmer Barnard MD LAB BLOOD ORDERABLES EXTERNAL LAB documented in this encounter Visit Diagnoses Not on filedocumented in this encounter
--- OUTSIDE RECORDS SUMMARY | 2024-04-04 01:18 | XMS_ITS | Encounter Summary ---
Author Organization [facility]nette utibritatny Address [address] [place] [phone] Phone Care Team Providers Care Smearer Name Role Phone Unavailable Primary Care Provider Unavailabl e Encounter Details Date Type Department Care Team (Late st Contact Info) Description 04/22/2017 Legacy Encounter - Labs HISTORICAL CONVERSION CENTRAL [address] [place] [address], [place] [address] Gilmer Barnard MD [address] [facility], [address] [place] [address] Social History Tobacco Use Types Packs/Day Years Used Date Smoking Tobacco: Never Assessed Sex and Gender Information Value Date Recorded Sex Assigned at Not on file Gender Identity Not on file Sexual Orientation Not on file documented as of this encounter Plan of Treatment Not on file documented as of this encounter Procedures Procedure Name Priority Date/Time Associated Diagnosis Comments ENHANCED PDF REPORT [id number] Routine 04/22/2017 7:35 AM AUTOMATION DEVELOPER CBC (H/H, RBC, INDICES, WBC, PLT) Routine 04/22/2017 7:35 AM AUTOMATION DEVELOPER VITAMIN D, 25-OH, TOTAL,IA Routine 04/22/2017 7:35 AM AUTOMATION DEVELOPER RENAL FUNCTION PANEL (RFP) Routine 04/22/2017 7:35 AM AUTOMATION DEVELOPER DIRECT LDL, SERUM Routine 04/22/2017 7:3 5 AM AUTOMATION DEVELOPER ALT (SGPT), SERUM Routine 04/22/2017 7:3 5 AM AUTOMATION DEVELOPER PTH INTACT W/O CALCIUM, SERUM Routine 04/22/2017 7:35 AM AUTOMATION DEVELOPER documented in this encounter Results * Enhanced Pdf Report [id number] (04/22/2017 7:35 AM AUTOMATION DEVELOPER) [facility] ENHANCED REPORT EXTERNAL LAB 04/22/2017 7:35 AM AUTOMATION DEVELOPER 04/22/2017 7:37 AM AUTOMATION DEVELOPER Gilmer Barnard MD LAB BLOOD ORDERABLES Performing Organization Address [facility]/ZIP Co de Phone Number EXTERNAL LAB * (ABNORMAL) Vitamin d, 25-Oh, Total,Ia (04/22/2017 7:35 AM AUTOMATION DEVELOPER) [facility] Calcidiol, Serum/Plasma 8(L) 30 - 100 ng/mL EXTERNAL LAB Comment: Vitamin D Status ? 25-OH Vitamin D: Deficiency: ?<20 ng/mL Insufficiency: ? 20 - 29 ng/mL Optimal: ? > or = 30 ng/mL For 25-OH Vitamin D testing on patients on D2-supplementation and patients for whom quantitation of D2 and D3 fractions is required, the QuestAssureD(TM) 25-OH VIT D, (D2,D3), LC/MS/MS is recommended: order code 11529 (patients >2yrs). For more information on this test, go to: http://education.Algolux.LiveBuzz/faq/DQR588 (This link is being provided for informational/educational purposes only.) 04/22/2017 7:35 AM AUTOMATION DEVELOPER 04/22/2017 7:37 AM AUTOMATION DEVELOPER Gilmer Barnard MD LAB BLOOD ORDERABLES Performing Organization Address [facility] [address] [facility]/ZIP Co de Phone Number EXTERNAL LAB * (ABNORMAL) PTH Intact w/o Calcium (04/22/2017 7:35 AM AUTOMATION DEVELOPER) Pathologist [facility] PTH, Intact, Serum/Plasma 286(H) 14 - 64 pg/mL EXTERNAL LAB Comment: Interpretive Guide ?Intact PTH ? Calcium ? ------- Normal Parathyroid ?Normal ? Normal Hypoparathyroidism ?Low or Low Normal ?Low Hyperparathyroidism ?? Primary ?Normal or High ? High ?? Secondary ?High ? Normal or Low ?? Tertiary ? High ? High Non-Parathyroid ?? Hypercalcemia ?Low or Low Normal ?High 04/22/2017 7:35 AM AUTOMATION DEVELOPER 04/22/2017 7:37 AM AUTOMATION DEVELOPER Gilmer Barnard MD LAB BLOOD ORDERABLES EXTERNAL LAB * (ABNORMAL) CBC (H/H, RBC, Indices, WBC, Plt) (04/22/2017 7:35 AM AUTOMATION DEVELOPER) [facility] Leukocytes, Blood 4.2 3.8 - 10.8 Thousand/u L EXTERNAL LAB Erythrocytes (RBC) 2.92(L) 4.20 - 5.80 Million/uL EXTERNAL LAB Hemoglobin (HGB) 8.5(L) 13.2 - 17.1 g/dL EXTERNAL LAB Hematocrit (HCT) 26.0(L) 38.5 - 50.0 % EXTERNAL LAB MCV 89.0 80.0 - 100.0 fL EXTERNAL LAB MCH 29.1 27.0 - 33.0 pg EXTERNAL LAB MCHC 32.7 32.0 - 36.0 g/dL EXTERNAL LAB Erythrocyte Distribution Width (RDW) 15.8(H) 11.0 - 15.0 % EXTERNAL LAB Platelets, Blood 145 140 - 400 Thousand/u L EXTERNAL LAB Platelet mean volume, Blood 10.2 7.5 - 12.5 fL EXTERNAL LAB 04/22/2017 7:35 AM AUTOMATION DEVELOPER 04/22/2017 7:37 AM AUTOMATION DEVELOPER Gilmer Barnard MD LAB BLOOD ORDERABLES EXTERNAL LAB * (ABNORMAL) Renal Function Panel (04/22/2017 7:35 AM AUTOMATION DEVELOPER) Glucose, Serum/Plasma 146(H) 65 - 99 mg/dL EXTERNAL LAB Comment: ? Fasting reference interval For someone without known diabetes, a glucose value >125 mg/dL indicates that they may have diabetes and this should be confirmed with a follow-up test. Urea nitrogen, Serum/Plasma (BUN) 81(H) 7 - 25 mg/dL EXTERNAL LAB Creatinine, Serum/Plasma 3.74(H) 0.70 - 1.25 mg/dL EXTERNAL LAB Comment: For patients >49 years of age, the reference limit for Creatinine is approximately 13% higher for people identified as -[place]. eGFR, non 16(L) > OR = 60 mL/min/1. 73m2 EXTERNAL LAB eGFR, 19(L) > OR = 60 mL/min/1. 73m2 EXTERNAL LAB Urea nitrogen/Creatinin e, Serum/Plasma 22 6 - 22 (calc) EXTERNAL LAB Sodium, Serum/Plasma 135 135 - 146 mmol/L EXTERNAL LAB Potassium, Serum/Plasma 5.5(H) 3.5 - 5.3 mmol/L EXTERNAL LAB Chloride, Serum/Plasma 108 98 - 110 mmol/L EXTERNAL LAB Carbon dioxide CO2), total, Serum/Plasma 19(L) 20 - 31 mmol/L EXTERNAL LAB Calcium, Serum/Plasma 7.8(L) 8.6 - 10.3 mg/dL EXTERNAL LAB Phosphate, Serum/Plasma 4.7(H) 2.5 - 4.5 mg/dL EXTERNAL LAB Albumin, Serum/Plasma 3.2(L) 3.6 - 5.1 g/dL EXTERNAL LAB 04/22/2017 7:3 5 AM AUTOMATION DEVELOPER 04/22/2017 7:37 AM AUTOMATION DEVELOPER Narrative Authorizing Provider Result Ellie Barnard MD LAB BLOOD ORDERABLES Performing Organization Address [facility] Co de Phone Number EXTERNAL LAB * ALT (04/22/2017 7:35 AM AUTOMATION DEVELOPER) Alanine Aminotransferase (ALT), Serum/Plasma 25 9 - 46 U/L EXTERNAL LAB 04/22/2017 7:35 AM AUTOMATION DEVELOPER 04/22/2017 7:37 AM AUTOMATION DEVELOPER Narrative Authorizing Provider Result Ellie Barnard MD LAB BLOOD ORDERABLES Performing Organization Address [facility] de Phone Number EXTERNAL LAB * Direct LDL (04/22/2017 7:35 AM AUTOMATION DEVELOPER) Cholesterol, LDL, Serum/Plasma 87 <100 mg/dL EXTERNAL LAB Comment: Greatly elevated Triglycerides values (>1200 mg/dL) interfere with the dLDL assay. As no Triglycerides testing was ordered, interpret results with caution. Desirable range <100 mg/dL for patients with CHD or diabetes and <70 mg/dL for diabetic patients with known heart disease. 04/22/2017 7:35 AM AUTOMATION DEVELOPER 04/22/2017 7:37 AM AUTOMATION DEVELOPER Narrative Authorizing Provider Result Ellie Barnard MD LAB BLOOD ORDERABLES Performing Organization Address [facility] de Phone Number EXTERNAL LAB documented in this encounter Visit Diagnoses Not on filedocumented in this encounter
--- OUTSIDE RECORDS SUMMARY | 2024-04-04 01:18 | XMS_ITS | Encounter Summary ---
Author Organization [facility]te utibrittany Address [address] [place] [phone] Phone Care Team Providers Care Slip Bridge Operator Name Role Phone Unavailable Primary Care Provider Unavailabl e Encounter Details Date Type Department Care Team (Late st Contact Info) Description 06/24/2017 Legacy Encounter - Labs HISTORICAL CONVERSION CENTRAL [address] [place] [address] iGlmer Barnard MD [address] [facility], [place] [address] Social History Tobacco Use Types Packs/Day Years [...] Associated Diagnosis Comments MANUALLY ENTERED ORDER Routine 06/24/2017 12:00 AM CDT documented in this encounter Results * (ABNORMAL) Manually Entered Order (06/24/2017 12:00 AM CDT) Creatinine 2.8(H) 0.5 - 1.3 EXTERNAL LAB Alanine Aminotransferase (ALT), Serum/Plasma 24 12 - 78 EXTERNAL LAB HEMOGLOBIN 8.9(L) 12 - 16 EXTERNAL LAB Iron saturation, Serum/Plasma 146(H) 20 - 55 EXTERNAL LAB Reticulocytes, Absolute 2.3 EXTERNAL LAB 06/24/2017 Gilmer Barnard MD LAB BLOOD ORDERABLES EXTERNAL LAB documented in this encounter Visit Diagnoses Not on filedocumented in this encounter
--- OUTSIDE RECORDS SUMMARY | 2024-04-04 01:24 | XMS_ITS | Encounter Summary ---
Author Organization [facility] Address [address] [place] [address]. [place], [place] [address] [place] [address] Care Team Providers Care Charge Account Authorizer Name Role Phone Cee Dc GEOCHEMISTRY TEACHER Primary Care Provid er Reason for Visit * Auth/Cert (Routine) Specialty Diagnoses / Procedures Referred By Rocky t Referred To Contact Diagnoses Screening for colon cancer Personal history of colonic polyps screening colonoscopy Procedures COLONOSCOPY,DIAGNOSTIC COLONOSCOPY Hunter Tubbs MD [address] [address] Phone: tel: fax: Referral ID Status Reason Start Date Expiration Date Visits Re quested Visits Authorized [id number] 1 1 Encounter Details Date Type Department Care Team (Late st Contact Info) Description 06/02/2023 9:09 AM LINOTYPE WORKER Anesthesia Event [facility] [place] [address] Stan Hensley MD [address] [place] [address] Anesthesia Record Procedure Summary Procedure Name Responsible Anesthesiologist Anesthesia Start Time Anesthesia Stop Time COLONOSCOPY-NEGATIV E Stan Hensley MD 06/02/23 0909 06/02/23 0927 Events Date Time Event Comment 06/02/2023 0813 0813 AN Anesthesia Prepped 0902 AN SHAREPOINT ENGINEER Prepped 0905 An Start Data 0905 Nasal Cannula Applied 0905 Preoxygenation 0905 Anesthesia Ready 0909 An Start Patient ID and consent checked and patient reassessed. 0911 An Induction The patient was reevaluated immediately before moderate or deep sedation use and before anesthesia induction. 0924 An Emergence 926 Nasal Cannula Removed 926 an stop data 926 Post Anesthetic Care Handoff I completed my handoff to the receiving nurse during which we: 1. Identified the patient 2. Identified the responsible provider 3. Reviewed the pertinent medical history 4. Discussed the surgical course 5. Reviewed intra-op anesthesia management and issues during anesthesia 6. Set expectations for post-procedure period 7. Allowed opportunity for questions and acknowledgement of understanding. 09 An Stop Meds Name Total lidocaine (PF) (XYLOCAINE) 2% injection 100 mg propofol (DIPRIVAN) 200 mg/20 mL injecti on 120 mg lactated ringers infusion 100 mL * Agents Name O2 Air Ancillary O2 * Blood No blood administrations on file. Lines, Drains, and Airways Type Details Placement Removal Peripheral IV Placement Date: 07/22; Placement Time: 0835; Placed Outside of This Facility?: No; Size: 20 G; Orientation: Right; Location: Hand; Site Prep: Chlorhexidine; Local Anesthetic: None; Inserted By: WESTON Santos; Insertion attempts: 2; Ultrasound-guided Placement?: No; Patient Tolerance: Tolerated well; Removal Date: 06/02/23; Removal Time: 1004; Removal Reason: Patient Discharged 06/02/23 0835 by Della Bowels RN 06/02/23 1004 by Delaney Mensah RN documented in this encounter Social History Tobacco Use Types Packs/Day Years Used Date Smoking Tobacco: Former Cigarettes Q uit: 2008 Smokeless Tobacco: Never Alcohol Use Standard Drinks/Week Comments Not Currently 0 (1 standard drink = 0.6 oz pur e alcohol) maybe a beer or two a yr PHQ-2 Answer Date Recorded Patient Health Questionnaire-2 Score 0 01/29/2023 Sex and Gender Information Value Date Recorded Sex Assigned at Not on file Legal Sex Male 5:36 PM CDT Gender Identity Not on file Sexual Orientation Not on file documented as of this encounter OR Notes * Anesthesia Postprocedure Evaluation - Stan Hensley MD - 06/02/2023 9:35 AM LINOTYPE WORKER Anesthesia Post-op Note Britton Ray [place] Procedure(s): COLONOSCOPY-NEGATIVE Anesthesia type: MAC, general Vitals: 03/04/24 0926 BP: 99/58 Vitals: 06/02/[address] Pulse: 64 Vitals: 06/02/23 0833 Resp: 20 Vitals: 06/02/23925 Temp: 36 ??C Vitals: 06/02/23925 SpO2: 99% Patient Location: Phase II/Outpatient Level of Consciousness: awake, oriented and alert Pain Management: adequate analgesia Airway Patency: patent Respiratory Status: acceptable Cardiovascular Status: acceptable, blood pressure returned to baseline and stable Post-Op Nausea: none Postoperative Hydration: euvolemic There were no known notable events for this encounter. TYPE WORKER * Anesthesia Preprocedure Evaluation - Stan Hensley MD - 06/02/2023 8:11 AM LINOTYPE WORKER Anesthesia ROS/MED History Reviewed: Patient summary , Nursing notes , ECG, Family history anesthesia, Anesthesia history , Medications , Labs , Images/Studies Pre-Anesthetic State: alert, awake and responds appropriately Pulmonary (+) COPD, sleep apnea Cardiovascular (+) hypertension Neuro/Psych Substance Use GI/Hepatic/Renal (+) renal disease, (CRI) Endo/Other (+) obese, cancer, (surgical resection) GENERAL COMMENTS No Known Allergies Last Fluid Intake Date: 06/02/23 Last Fluid Intake Time: 0500 (prep) Last Solid Intake Date: 05/30/23 Last Solid Intake Time: 1730 Past Medical History: No date: Anemia, unspecified No date: Cancer (HHS/HCC) (CMS/HCC) Comment: squamous cell carcinoma/lip No date: Ground glass opacity present on imaging of lung No date: H/O blood clots No date: Hypertension No date: Sleep apnea, unspecified 2016: Stage 3 chronic kidney disease (CMS/HCC) Comment: went into renal failure Past Surgical History: 10/18/2021: COLONOSCOPY; N/A Comment: COLONOSCOPY WITH ASCENDING, HEPATIC FLEXURE, AND TRANSVERSE, DESCENDING, AND SIGMOID COLON POLYPECTOMIES VIA HOT SNARE performed by Hunter Tubbs MD at [facility] GI No date: EGD 05/2020: 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 No results for input(s): WBC , RBC , HGB , HCT , PLT , NA , K , CL , CO2 , AGAP , BUN , CR , BUNCREATININ , GFRNON , GFR , GLU , CA in the last 72 hours. STOP-Bang Assessment: Anesthesia Plan ASA 3 Intravenous Induction Anesthesia type: MAC and general Plan for Airway: nasal cannula/simple face mask Plan for Post-op Pain Plan: oral pain medication, IV analgesics and as per surgeon Discussed potential risks of General Anesthesia including but not limited to corneal abrasion, visual impairment or visual loss, mouth injury, dental damage, sore throat, hoarseness, esophageal injury, awareness under anesthesia, nerve injury due to positioning, aspiration, pneumonia, stroke, cardiac event, adverse drug reactions and . Informed Consent Anesthetic plan and risks discussed with patient of whom consent was obtained. . TYPE WORKER TYPE WORKER documented in this encounter Plan of Treatment Not on file documented as of this encounter Visit Diagnoses Not on filedocumented in this encounter Administered Medications Inactive Administered Medications - up to 3 most recent administrations Medication Order MAR Action Action Date Dose Rate Site lactated ringers infusion Intravenous, Continuous PRN, Starting on Fri06/02/23 at 0905, Until Fri06/02/23 at 926, Anesthesia Intra-Op New Bag 06/02/2023 9:05 AM LINOTYPE WORKER lidocaine (PF) (XYLOCAINE) 2 % injection Intravenous, PRN, Starting on Fri06/02/23 at 0911, Until Fri06/02/23 at 926, Anesthesia Intra-Op Given 06/02/2023 9:11 AM LINOTYPE WORKER 100 mg propofol (DIPRIVAN) IV bolus Intravenous, PRN, Starting on Fri06/02/23 at 0911, Until Fri06/02/23 at 926, Anesthesia Intra-Op Given 06/02/2023 9:17 AM LINOTYPE WORKER 20 mg Given 06/02/2023 9:14 AM LINOTYPE WORKER 50 mg Given 06/02/2023 9:11 AM LINOTYPE WORKER 50 mg documented in this encounter Care Teams Charge Account Authorizer Relationship Specialty Start Date End Date Cee Dc FNP [address] [place] [address] PCP - General NURSE PRACTITIONER 12/10/22 documented as of this encounter
--- OUTSIDE RECORDS SUMMARY | 2024-04-04 01:24 | XMS_ITS | Encounter Summary ---
Author Organization [facility] Address [address] [place] [address]. [place], [place] [id number] [place] [address] Care Team Providers Care Head Inspector And Center Marker Name Role Phone Unavailable Primary Care Provider Unavailabl e Encounter Details Date Type Department Care Team (Late st Contact Info) Description 07/24/2006 Abstract [facility] [address] [place] [address] Stephen Angel MD Social History Tobacco Use Types Packs/Day Years [...]
--- OUTSIDE RECORDS SUMMARY | 2024-04-04 01:24 | XMS_ITS | Encounter Summary ---
Author Organization [facility] Address [address] [place] [address]. [place] [address] Care Team Providers Care Deskidding Machine Operator Name Role Phone Unavailable Primary Care Provider Unavailabl e Encounter Details Date Type Department Care Team (Late st Contact Info) Description 07/25/2007 Abstract [facility] Conversion Md, Generic Conversion, Social History Tobacco Use Types Packs/Day Years [...]
--- OUTSIDE RECORDS SUMMARY | 2024-04-04 01:24 | XMS_ITS | Encounter Summary ---
Author Organization [facility] Address [address] [place] [address]. [place], [place] [address] [place] [id number] Care Team Providers Care State Game Warden Name Role Phone None, Provider Primary Care Provider Unavaila ble Encounter Details Date Type Department Care Team (Latest Contact Info) Description 10/10/2021 Scan [facility] Scanned, Documents Social History Tobacco Use Types Packs/Day Years Used Date Smoking Tobacco: Former Cigarettes Q uit: 2008 Smokeless Tobacco: Never Alcohol Use Standard Drinks/Week Comments Not Currently 0 (1 standard drink = 0.6 oz pur e alcohol) maybe a beer or two a yr PHQ-2 Answer Date Recorded PHQ-2 Score - If the patient scores above 3, please move on to questions 3-9 0 09/26/2021 Sex and Gender Information Value Date Recorded Sex Assigned at Not on file Legal Sex Male 5:36 PM CDT Gender Identity Not on file Sexual Orientation Not on file COVID-19 Exposure Response Date Recorded In the last 10 days, have yo u been in contact with someone who was confirmed or suspected to have Coronavirus/COVID-19? No / Unsure 10/09/2021 3:36 PM CDT documented as of this encounter Plan of Treatment Not on file documented as of this encounter Visit Diagnoses Not on filedocumented in this encounter Care Teams State Game Warden Relationship Specialty Start Date End Date None, Provider, PCP - General 09/26/21 12/09/22 documented as of this encounter
--- OUTSIDE RECORDS SUMMARY | 2024-04-04 01:24 | XMS_ITS | Encounter Summary ---
Author Organization [facility] Address [facility]. [place], [place] [address] [place] [address] Care Team Providers Care Mixer Operator Hot Metal Name Role Phone Cee Dc STRUCTURAL MANAGER Primary Care Provid er Reason for Visit * Auth/Cert (Routine) Specialty Diagnoses / Procedures Referred By Rocky t Referred To Contact Diagnoses Screening for colon cancer Personal history of colonic polyps screening colonoscopy Procedures COLONOSCOPY,DIAGNOSTIC COLONOSCOPY Hunter Tubbs MD [address] [address] Phone: tel: fax: Referral ID Status Reason Start Date Expiration Date Visits Re quested Visits Authorized [id number] 1 1 Encounter Details Date Type Department Care Team (Late st Contact Info) Description 06/02/2023 9:30 AM BUTT MAKER - 06/02/2023 10:00 AM BUTT MAKER Surgery [facility] [place] [address] Hunter Tubbs MD [address] [address] COLONOSCOPY-NEGATIVE Surgery Details Date/Time Status Location OR Service Patient Class Case Class Case Type Trauma Case? 06/02/2023 9:30 AM Posted [facility] 3 Gastroenterology Short Stay/Outpa tient Surgery No Panel 1 Procedure LRB Anes Op Region Wound Class Comments COLONOSCOPY-NEGATIVE N/A General Clean Con taminated Diverticulosis Surgeon Surgeon Role Service Panel Hunter Tubbs MD Primary Gastroenterology 1 documented in this encounter Social History Tobacco Use Types Packs/Day Years Used Date Smoking Tobacco: Former Cigarettes Q uit: 2009 Smokeless Tobacco: Never Alcohol Use Standard Drinks/Week [...] Sign Reading Time Taken Comments Blood Pressure 128/53 06/02/2023 9:55 AM BUTT MAKER Pulse 63 06/02/2023 9:33 AM BUTT MAKER Temperature 36 ??C (96.8 ??F) 06/02/2023 9:26 AM BUTT MAKER Respiratory Rate 20 06/02/2023 8:33 AM BUTT MAKER Oxygen Saturation 97% 06/02/2023 10:00 AM BUTT MAKER Inhaled Oxygen Concentration - - Weight 101.2 kg (223 lb) 05/23/2023 2:05 PM BUTT MAKER Height 166.4 cm (5' 5.5 ) 05/23/2023 2:05 PM BUTT MAKER Body Mass Index 36.54 05/23/2023 2:05 PM BUTT MAKER documented in this encounter Discharge Instructions * Discharge Instructions* Delaney Mensah RN - 06/02/2023 9:36 AM BUTT MAKER Repeat screening colonoscopy in 5 years MAKER * Attachments The following attachments cannot be sent through Care Everywhere. * Colonoscopy Discharge Instructions ([place]) * General Anesthesia Discharge Instructions ([place]) documented in this encounter Medications at Time of Discharge albuterol sulfate HFA 108 (90 Base) MCG/ACT inhaler INHALE 2 PUFFS BY MOUTH EVERY 4 HOURS NEEDED FOR SHORTNESS OF BREATH FOR WHEEZING 03/26/2023 ANORO ELLIPTA 62.5-25 MCG/ACT inhaler Inhale 1 puff into the lungs daily. 03/26/2023 apixaban 5 MG tablet Take 1 tablet (5 mg total) by mouth 2 (two) times daily. 08/30/2021 aspirin 81 MG chewable tablet Chew 1 tablet (81 mg total) by mouth daily. aspirin EC (ECOTRIN) 81 MG tablet Take 1 tablet (81 mg total) by mouth daily. atorvastatin 40 MG tablet Take 1 tablet (40 mg total) by mouth nightly at bedtime. atorvastatin 40 MG tablet atorvastatin 40 mg tablet TAKE 1 TABLET BY MOUTH ONCE DAILY 10/30/2020 calcium citrate-vitamin D 200-250 MG-UNIT Tab Take 1 tablet by mouth 3 (three) times daily. ferrous sulfate (BHUPENDRA-IN-ELISEO) 75 (15 Fe) MG/ML Solution furosemide 40 MG tablet Take 1 tablet (40 mg total) by mouth daily. irbesartan (AVAPRO) 150 MG tablet Take 1 tablet (150 mg total) by mouth daily. labetalol (NORMODYNE) 200 MG tablet Take 0.5 tablets (100 mg total) by mouth 2 (two) times daily. Dos 06/02/23 12/21/2022 lisinopril 20 MG tablet Take 1 tablet (20 mg total) by mouth daily. potassium chloride CR 20 MEQ tablet Take 1 tablet (20 mEq total) by mouth 2 (two) times a day. tadalafil 20 MG tablet tadalafil 20 mg tablet TAKE 1 TABLET BY MOUTH ONCE DAILY NEEDED 05/19/2021 traMADol 50 MG tablet Take 1 tablet (50 mg total) by mouth 2 (two) times daily as needed. 08/20/2021 triamcinolone 0.1 % cream triamcinolone acetonide 0.1 % topical cream APPLY A THIN LAYER TOPICALLY TO AFFECTED AREA(S) TWICE DAILY vitamin D2, ergocalciferol, 25643 UNITS capsule Take 1 capsule (50,000 Units total) by mouth once a week. 07/08/2021 vitamin E 100 UNIT capsule Take 1 capsule (100 Units total) by mouth daily. documented as of this encounter H&P Notes * Hunter Tubbs MD - 06/02/2023 9:08 AM CST GASTROENTEROLOGY H&P 06/02/2023 9:08 AM Reason for Consult: History of multiple polyps History of Present Illness: Britton Nielsen is a 68-year-old same Review of systems: General: no fever, chills, malaise, fatigue, weight loss or gain. HEENT: no acute changes in vision or hearing Respiratory: no shortness of breath, cough, sputum production, hemoptysis Cardiovascular: no chest pain, palpitations, orthopnea Gastrointestinal: as per HPI Genitourinary: no dysuria, hematuria, incontinence Musculoskeletal: no extremity edema, myalgia. Neuro: no dizziness, headache, seizures Hematology: no easy bruising, bleeding Skin: no new skin rashes or lesions. Patient Active Problem List Diagnosis Positive colorectal cancer screening using Cologuard test Screening for colon cancer Personal history of colonic polyps Past Medical History: Diagnosis Date Anemia, unspecified Cancer (HHS/HCC) (CMS/HCC) squamous cell carcinoma/lip Ground glass opacity present on imaging of lung H/O blood clots Hypertension Sleep apnea, unspecified Stage 3 chronic kidney disease (CMS/HCC) 2016 went into renal failure Past Surgical History: Procedure Laterality Date COLONOSCOPY N/A 10/18/2021 COLONOSCOPY WITH ASCENDING, HEPATIC FLEXURE, AND TRANSVERSE, DESCENDING, AND SIGMOID COLON POLYPECTOMIES VIA HOT SNARE performed by Hunter Tubbs MD at [facility] GI EGD REPR ANOMAL COR ART BY JACK Bartlett PASS 05/2020 triple by pass Family History Problem Relation Name Age of Onset Heart Disease Mother CHF Father Heart Disease Father Diabetic kidney disease Sister Other (cancer,small cell) Brother Heart Disease Brother Social History Socioeconomic History Marital status: Spouse name: Not on file Number of children: Not on file Years of education: Not on file Highest education level: Not on file Occupational History Not on file Tobacco Use Smoking status: Former Packs/day: 1.5 Types: Cigarettes Quit date: 2008 Years since quittin.1 Smokeless tobacco: Never Vaping Use Vaping Use: Never used Substance and Sexual Activity Alcohol use: Not Currently Comment: maybe a beer or two a yr Drug use: Never Sexual activity: Not on file Other Topics Concern Not on file Social History Narrative Not on file Social Determinants of Health Financial Resource Strain: Not on file Food Insecurity: Not on file Transportation Needs: Not on file Physical Activity: Not on file Stress: Not on file Social Connections: Not on file Intimate Partner Violence: Not on file Housing Stability: Not on file No Known Allergies PHYSICAL EXAM: Filed Vitals: 05/23/23 1405 06/02/23 0833 BP: 122/59 Pulse: (!) 59 Resp: 20 Temp: 97.8 ??F (36.6 ??C) TempSrc: Temporal SpO2: 94% Weight: 101.2 kg (223 lb) Height: 1.664 m (5' 5.5 ) Wt Readings from Last 3 Encounters: 05/23/23 101.2 kg (223 lb) 01/29/23 102.5 kg (226 lb) 10/09/21 93.9 kg (207 lb) General: pleasant, no distress Lungs: clear to auscultation bilaterally Heart: regular rate and rhythm, normal s1-s2 Abdomen: soft, non-tender, non-distended, bowel sounds normal, no palpable masses Neuro: Alert, oriented, cooperative Labs: No results for input(s): WBC , HGB , MCV , PLT , INR in the last 168 hours. No results for input(s): NA , K , CL , CO2 , BUN in the last 168 hours. Invalid input(s): CREATININE No results for input(s): AST , ALT , ALB in the last 168 hours. Invalid input(s): ALKPHOS , TBILI ? Assessment and Plan: History of multiple colon polyps. Plan, colonoscopy The procedural risks, benefits, alternatives were discussed fully with the patient, including the risks of complications of bleeding, infection, bowel injury or perforation, anesthesia related risks but not limited to the above. Post complication remedies could include hospitalization, antibiotics,surgery or even the remote possibility of . The patient verbalized understanding of the risks and wishes to proceed. Thank you for this consult. Please do not hesitate to contact us with further questions. HUNTER TUBBS MD Voice recognition software utilized MAKER documented in this encounter OR Notes * Op Note - Hunter Tubbs MD - 06/02/2023 9:27 AM CST [facility] OpNote COLONOSCOPY WITH REMOVAL SNARE TECH Procedure Note Britton Derick Nielsne 06/02/2023 0930 Procedure(s) (LRB): COLONOSCOPY WITH REMOVAL SNARE TECH (N/A) Surgeon(s): Hunter Tubbs MD Staff: GI Nurse: Nely Muniz RN lead architect: Maximo Becker, SENIOR MOBILE DEVELOPER Anesthesia: General Anesthesiologist: Stan Hensley MD MATURITY CHECKER: Margarita Garrett CRNA Pre-Op Diagnosis: screening colonoscopy Post-Op Diagnosis: Diverticulosis Procedure Description: Informed consent was obtained earlier. Patient was brought to the OR and placed in supine lateral decubitus position and sedated under MAC anesthesia. PCF 190 colonoscope was lubricated inserted into the rectum and advanced to the cecum. Bowel prep was excellent. Cecum was identified by the ileocecal valve and the appendiceal orifice looks normal. Ascending colon transversecolon looked normal. Descending colon contained a few scattered diverticulosis. The rectum was normal. Retroflexion to anal verge revealed mild hemorrhoids. Findings: Few diverticulosis. No polyps. Otherwise negative colon to the cecum with excellent bowelprep. Plan: Repeat screening colonoscopy in 5 years Complications: None Estimated Blood Loss: None Specimens:* No orders in the log * Voice recognition software utilized. HUNTER TUBBS MD Date: 06/02/2023 Time: 9:27 AM Voice recognition software utilized. MAKER documented in this encounter Plan of Treatment Not on file documented as of this encounter Procedures Procedure Name Priority Date/Time Associated Diagnosis Comments COLONOSCOPY 06/02/2023 9:02 AM BUTT MAKER Screening for colon cancer Personal history of colonic polyps documented in this encounter Visit Diagnoses Diagnosis Screening for colon cancer Special screening for malignant neoplasms, colon Personal history of colonic polyps Screening for colon cancer Special screening for malignant neoplasms, colon Personal history of colonic polyps documented in this encounter Admitting Diagnoses Diagnosis Screening for colon cancer Special screening for malignant neoplasms, colon Personal history of colonic polyps documented in this encounter Administered Medications Inactive Administered Medications - up to 3 most recent administrations Medication Order MAR Action Action Date Dose Rate Site simethicone (MYLICON) 40 MG/0.6ML suspension As needed, Starting on Fri06/02/23 at 0920, Until Fri06/02/23 at 0930, Intra-Op Given 06/02/2023 9:20 AM BUTT MAKER 40 mg documented in this encounter Active and Recently Administered Medications Times are shown in BUTT MAKER. PRN Medication Order 05/31/2023 06/01/2023 06/02/2023 simethicone (MYLICON) 40 MG/0.6ML suspension (CANCELED) As needed, Starting on Fri06/02/23 at 0920, Until Fri06/02/23 at 0930, Intra-Op 0920 (Given - Provid er: Hunter Tubbs MD - Comment: colonoscopy irrigation) documented in this encounter Care Teams Mixer Operator Hot Metal Relationship Specialty Start Date End Date Cee Dc FNP [address] [place] [address] PCP - General NURSE PRACTITIONER 12/10/22 documented as of this encounter
--- OUTSIDE RECORDS SUMMARY | 2024-04-04 01:24 | XMS_ITS | Encounter Summary ---
Author Organization [facility] Address [facility]. [place], [place] [id number] [place] [address] Care Team Providers Care Futures Trader Name Role Phone Cee Dc WASHER OFF Primary Care Provid er Reason for Visit * Reason Comments Follow Up Follow up * Consultation/Treatment (Urgent) - Closed Specialty Diagnoses / Procedures Referred By Rocky blancas Referred To Contact Diagnoses Sideropenic dysphagia Anemia, unspecified Cee Dc FNP [address] [place] [address] Phone: tel: fax: Hunter Tubbs MD 3 [facility] [address] [address] [place] [address] Phone: tel: fax: Referral ID Status Reason Start Date Expiration Date Visits Re quested Visits Authorized [id number] Closed 12/10/2022 12/11/2023 99 99 Encounter Details Date Type Department Care Team (Latest Contact Info) Description 01/29/2023 3:40 PM CDT Office Visit [facility] Medical [facility] Multispecialty Care - [facility] [address] [facility] [address] [place] [address] Hunter Tubbs MD 3 [facility] [place] [address] [place] [address] [id number] Follow Up (Follow up) Social History Tobacco Use Types Packs/Day Years Used Date Smoking Tobacco: Former Cigarettes Q uit: 2008 Smokeless Tobacco: Never Tobacco Cessation:Counseling Given: Not Answered Alcohol Use Standard Drinks/Week Comments Not Currently [...] Sign Reading Time Taken Comments Blood Pressure 176/104 01/29/2023 3:52 PM CDT Pulse 66 01/29/2023 3:52 PM CDT Temperature 37.3 ??C (99.2 ??F) 01/29/2023 3:52 PM CD T Respiratory Rate 20 01/29/2023 3:52 PM CDT Oxygen Saturation 97% 01/29/2023 3:52 PM CDT Inhaled Oxygen Concentration - - Weight 102.5 kg (226 lb) 01/29/2023 3:52 PM CDT Height 165.1 cm (5' 5 ) 01/29/2023 3:52 PM CDT Body Mass Index 37.61 01/29/2023 3:52 PM CDT documented in this encounter Progress Notes * Hunter Tubbs MD - 01/29/2023 3:40 PM CDT Images from the original note were not included. Gastroenterology Established Visit Reason for Visit: Follow Up (Follow up) History of Present Illness: 67-year-old male with multiple colon polyps removed 1 year ago. He presents for repeat colonoscopy.He also has chronic renal insufficiency and cannot take certain bowel preps. Medications: Current Outpatient Medications: apixaban 5 MG tablet, Take 1 tablet (5 mg total) by mouth 2 (two) times daily., Disp: , Rfl: aspirin 81 MG chewable tablet, Chew 1 tablet (81 mg total) by mouth daily., Disp: , Rfl: aspirin EC (ECOTRIN) 81 MG tablet, Take 1 tablet (81 mg total) by mouth daily., Disp: , Rfl: atorvastatin 40 MG tablet, Take 1 tablet (40 mg total) by mouth nightly at bedtime., Disp: , Rfl: atorvastatin 40 MG tablet, atorvastatin 40 mg tablet TAKE 1 TABLET BY MOUTH ONCE DAILY, Disp: , Rfl: calcium citrate-vitamin D 200-250 MG-UNIT Tab, Take 1 tablet by mouth 3 (three) times daily., Disp:, Rfl: furosemide 40 MG tablet, Take 1 tablet (40 mg total) by mouth daily., Disp: , Rfl: lisinopril 20 MG tablet, Take 1 tablet (20 mg total) by mouth daily., Disp: , Rfl: potassium chloride CR 20 MEQ tablet, Take 1 tablet (20 mEq total) by mouth 2 (two) times a day., Disp: , Rfl: tadalafil 20 MG tablet, tadalafil 20 mg tablet TAKE 1 TABLET BY MOUTH ONCE DAILY NEEDED, Disp: ,Rfl: traMADol 50 MG tablet, Take 1 tablet (50 mg total) by mouth 2 (two) times daily as needed., Disp: ,Rfl: triamcinolone 0.1 % cream, triamcinolone acetonide 0.1 % topical cream APPLY A THIN LAYER TOPICALLYTO AFFECTED AREA(S) TWICE DAILY, Disp: , Rfl: vitamin D2, ergocalciferol, 59197 UNITS capsule, Take 1 capsule (50,000 Units total) by mouth once a week., Disp: , Rfl: Allergies: No Known Allergies Medical History: Past Medical History: Diagnosis Date Anemia, unspecified Sleep apnea, unspecified Stage 3 chronic kidney disease (CMS/HCC) 2016 went into renal failure Surgical History: Past Surgical History: Procedure Laterality Date COLONOSCOPY N/A 10/18/2021 COLONOSCOPY WITH ASCENDING, HEPATIC FLEXURE, AND TRANSVERSE, DESCENDING, AND SIGMOID COLON POLYPECTOMIES VIA HOT SNARE performed by Hunter Tubbs MD at [facility] EGD REPR ANOMAL COR ART BY GRFT W PASS 05/2020 triple by pass PE: Filed Vitals: 01/29/23 1552 BP: (!) 176/104 Pulse: 66 Resp: 20 Temp: 99.2 ??F (37.3 ??C) TempSrc: Temporal SpO2: 97% Weight: 102.5 kg (226 lb) Height: 1.651 m (5' 5 ) General: In NAD, pleasant and appropriate HEENT: Anicteric Skin: Anicteric, no rashes Neuro: A&Ox3 Diagnoses/Impression: History of multiple colon polyps removed 1 year ago. History of chronic renal insufficiency. Recommendations and Plan: Repeat colonoscopy. Patient may substitute for MiraLAX bowel prep being. Old Eliquis for 2 days to minimize risk of bleeding Risks/Benefits/Options: Patient presented with risks (can include but are not limited to: discomfort, missing lesions, allergic or adverse reaction to the sedation, perforation of the bowel which may require hospitaliztion and surgery, bleeding, infection, aspiration), benefits, and alternatives to the procedure(s) and they are in agreement to proceed as planned. HUNTER TUBBS MD 01/29/2023 Voice recognition software utilized documented in this encounter Plan of Treatment Not on file documented as of this encounter Visit Diagnoses Diagnosis Screening for colon cancer- Primary Special screening for malignant neoplasms, colon Personal history of colonic polyps documented in this encounter Care Teams Futures Trader Relationship Specialty Start Date End Date Cee Dc FNP [address] [place], [place] [address] PCP - General NURSE PRACTITIONER 12/10/22 documented as of this encounter
--- OUTSIDE RECORDS SUMMARY | 2024-04-04 01:24 | XMS_ITS | Encounter Summary ---
Author Organization [facility] Address [facility]. [place], [place] [id number] [place] [address] Care Team Providers Care Supervisor [employer] Name Role Phone None, Provider MD Primary Care Provider Unavaila ble Reason for Visit * Reason Comments New Patient Positive cologuard-l ast egd 2016----no family hx of colon polyps and no colon cancer * Consultation/Treatment (Routine) - Closed Specialty Diagnoses / Procedures Referred By Contamy t Referred To Contact GASTROENTEROLOGY Diagnoses FOLLOW UP Kev Moser MD [address] [place] [address] [address] [place] [address] Phone: tel: fax: Hunter Tubbs MD [address] [address] Phone: tel: fax: Referral ID Status Reason Start Date Expiration Date Visits Re quested Visits Authorized [id number] Closed 07/20/2021 07/20/2022 100 100 Encounter Details Date Type Department Care Team (Latest Contact Info) Description 09/26/2021 3:20 PM CDT Office Visit [facility] Medical Group Multispecialty Care - [facility] [address] [place] [id number] Hunter Tubbs MD 3 [facility] [address] [place], [place] [id number] Libra Couch NP 3 [facility]. [address] [address] New Patient (Positive cologuard-last egd 2016----no family hx of colon polyps and no colon cancer) Social History Tobacco Use Types Packs/Day Years Used Date Smoking Tobacco: Former Cigarettes Q uit: 2008 Smokeless Tobacco: Never Tobacco Cessation:Counseling Given: No Alcohol Use Standard Drinks/Week Comments Not Currently [...] suspected to have Coronavirus/COVID-19? No / Unsure 09/26/2021 2:29 PM CDT documented as of this encounter Last Filed Vital Signs Vital Sign Reading Time Taken Comments Blood Pressure 130/64 09/26/2021 2:58 PM CDT Pulse 73 09/26/2021 2:58 PM CDT Temperature 36.3 ??C (97.3 ??F) 09/26/2021 2:58 PM CD T Respiratory Rate - - Oxygen Saturation 98% 09/26/2021 2:58 PM CDT Inhaled Oxygen Concentration - - Weight 93.9 kg (207 lb) 09/26/2021 2:58 PM CDT Height 166.4 cm (5' 5.5 ) 09/26/2021 2:58 PM CDT Body Mass Index 33.92 09/26/2021 2:58 PM CDT documented in this encounter Patient Instructions * Patient Instructions* Libra Couch NP - 09/26/2021 3:49 PM CDT It is recommended to consume 20-35 grams of fiber per day and at least 64 ounces/2 liters of water per day. Below are the common foods with fiber content listed for you. This will help with normal bowel movements. ?? 2018 UpToDate, Inc. and/or its affiliates. All Rights Reserved. Amount of fiber in different foods Food Serving Grams of fiber Fruits Apple (with skin) 1 medium apple 4.4 Banana 1 medium banana 3.1 Oranges 1 orange 3.1 Prunes 1 cup, pitted 12.4 Juices Apple, unsweetened, with added ascorbic acid 1 cup 0.5 Grapefruit, white, canned, sweetened 1 cup 0.2 Grape, unsweetened, with added ascorbic acid 1 cup 0.5 [place] 1 cup 0.7 Vegetables Cooked Green beans 1 cup 4.0 Carrots 1/2 cup sliced 2.3 Peas 1 cup 8.8 Potato (baked, with skin) 1 medium potato 3.8 Raw [place] (with peel) 1 cucumber 1.5 Lettuce 1 cup shredded 0.5 Tomato 1 medium tomato 1.5 Spinach 1 cup 0.7 Legumes Baked beans, canned, no salt added 1 cup 13.9 Kidney beans, canned 1 cup 13.6 [place] beans, canned 1 cup 11.6 Lentils, boiled 1 cup 15.6 Breads, pastas, flours Bran muffins 1 medium muffin 5.2 Oatmeal, cooked 1 cup 4.0 White bread 1 slice 0.6 Whole-wheat bread 1 slice 1.9 Pasta and rice, cooked Macaroni 1 cup 2.5 Rice, brown 1 cup 3.5 Rice, white 1 cup 0.6 Spaghetti (regular) 1 cup 2.5 Nuts Almonds 1/2 cup 8.7 Peanuts 1/2 cup 7.9 To learn how much fiber and other nutrients are in different foods, visit the [place] Department of Agriculture (USDA) National Nutrient Database at: http://www.nal.usda.gov/fnic/foodcomp/search/. Created using data from the USDA National Nutrient Database for Standard Reference. Available at http://www.nal.usda.gov/fnic/foodcomp/search/. Graphic 98569 Version 4.0 documented in this encounter Progress Notes * Libra Couch NP - 09/26/2021 3:20 PM CDT Images from the original note were not included. Gastroenterology Initial Visit Reason for Visit: New Patient (Positive cologuard-last egd 2016----no family hx of colon polyps and no colon cancer) History of Present Illness: Britton Nielsen is a 66-year-old male being seen in clinic for referral by Dr. Kev Armenta/ Provider MD Howard for positive cologuard test from PCP and need for diagnostic colonoscopy. PCP is Dr. Dunlap. Discussed with pt the statistics of positive findings from this test. Bowel habits are regular. No constipation or diarrhea, no hematochezia or melena. Has lost around 30 lbs over the past year through diet and exercise. No nausea, vomiting, dysphagia, abdominal pain, heart burn or acid reflux. Appropriate appetite. Prior abdominal surgeries: none. No colonoscopies in the past. 2017 EGD. No prior h/o hepatitis, no prior tattoos, no prior blood transfusions, no drug use, no current ETOHuse. Former 1.5 p/day smoker, quit in 2008. No family history of GI/Colon Cancer. NSAID/Blood thinner use: Apixaban 5 mg twice daily, not ASA 81 mg daily managed by Dr. Moser Medical Hx significant for: CAD with triple bypass 05/2020, HDL, multiple DVTs bilaterally (2015), bilateral peripheral neuropathy, anemia, stage 3 CKD, sleep apnea (not using CPAP) 2017 gastric bleeding with cauterization x 2 with reoccurance of bleeding which resulted in an embolization Was receiving iron infusions and Epogen injections at one point (2015), however recent Hgb was stable per pt Follows Dr. Murray, Nephrology, Dr. Moser was seen today with prior to our visit. ROS: Review of Systems Constitutional: Negative for chills, fever and malaise/fatigue. Negative for decreased appetite HENT: Negative for sore throat. Respiratory: Negative for shortness of breath. Cardiovascular: Negative for chest pain and leg swelling. Gastrointestinal: Negative for abdominal pain, blood in stool, constipation, diarrhea, heartburn, melena, nausea and vomiting. Refer to HPI. Musculoskeletal: Negative for joint pain. Endo/Heme/Allergies: Does not bruise/bleed easily. Psychiatric/Behavioral: Negative for depression. The patient is not nervous/anxious. Medications: Current Outpatient Medications: ??? apixaban 5 MG tablet, Take 5 mg by mouth 2 (two) times daily., Disp: , Rfl: ??? aspirin 81 MG chewable tablet, Chew 81 mg by mouth daily., Disp: , Rfl: ??? atorvastatin 40 MG tablet, Take 40 mg by mouth nightly at bedtime., Disp: , Rfl: ??? Ergocalciferol (VITAMIN D2 OR), , Disp: , Rfl: ??? furosemide 40 MG tablet, Take 40 mg by mouth daily., Disp: , Rfl: ??? lisinopril 20 MG tablet, Take 20 mg by mouth daily., Disp: , Rfl: ??? potassium chloride CR 20 MEQ tablet, Take 20 mEq by mouth 2 (two) times a day., Disp: , Rfl: ??? Sodium Sulfate-Mag Sulfate-KCl (SUTAB) 2310-007-567 MG Tab, Take 12 tablets by mouth daily for 2 days. Please take medications at specified times per GI clinic instructions., Disp: 24 tablet, Rfl: 0 Allergies: No Known Allergies Medical History: Past Medical History: Diagnosis Date ??? Anemia, unspecified ??? Sleep apnea, unspecified ??? Stage 3 chronic kidney disease (CMS/HCC) 2016 went into renal failure Surgical History: Past Surgical History: Procedure Laterality Date ??? EGD ??? REPR ANOMAL COR ART BY JACK W PASS 05/2020 triple by pass Social History: Social History Tobacco Use ??? Smoking status: Former Smoker Packs/day: 1.50 Quit date: 2009 Years since quittin.4 ??? Smokeless tobacco: Never Used Vaping Use ??? Vaping Use: Never used Substance Use Topics ??? Alcohol use: Not Currently Comment: maybe a beer or two a yr ??? Drug use: Never Family History: Family History Problem Relation Name Age of Onset ??? Heart Disease Mother ??? CHF Father ??? Heart Disease Father ??? Diabetic kidney disease Sister ??? Other (cancer,small cell) Brother ??? Heart Disease Brother PE: Filed Vitals: 09/26/21 1458 BP: 130/64 Pulse: 73 Temp: 97.3 ??F (36.3 ??C) SpO2: 98% Weight: 93.9 kg (207 lb) Height: 5' 5.5 (1.664 m) Physical Exam Constitutional: General: He is not in acute distress. Appearance: Normal appearance. He is well-developed. He is not ill-appearing. HENT: Ears: Comments: Bilateral hearing aids Glasses Cardiovascular: Rate and Rhythm: Normal rate and regular rhythm. Pulmonary: Effort: Pulmonary effort is normal. Breath sounds: Normal breath sounds. Abdominal: General: Bowel sounds are normal. There is no distension. Palpations: Abdomen is soft. There is no mass. Tenderness: There is no abdominal tenderness. There is no guarding or rebound. Hernia: No hernia is present. Musculoskeletal: Right lower leg: Edema (+2 edema to mid calf) present. Left lower leg: Edema (+2 edema to mid calf) present. Skin: General: Skin is warm and dry. Comments: excavatum mid sternum, secondary to CABG surgical incision hx Neurological: Mental Status: He is alert and oriented to person, place, and time. Psychiatric: Mood and Affect: Mood normal. Behavior: Behavior normal. Labs Reviewed: No results found for: WBC, RBC, HGB, HCT, RDW, PLT, NA, K, CL, AGAP, GLU, BUN, CR, GFRNON, GFR, CA,MAGNESIUM, ALB, ALT, AST, ALKP Endoscopic Results Reviewed: 2017 EGD x2 due to anemia requiring embolization after 2 failed cauterization with recurrent bleeding. Diagnoses/Impression: Positive colorectal cancer screening using cologuard test (primary encounter diagnosis) 1. Positive Cologuard test: Per pt PCP with no results available. No family history of colon cancer. Patient does have a history of smoking. No GI concerns. Need for diagnostic colonoscopy. 2. Comorbid Conditions: Anemia, sleep apnea, stage III chronic kidney disease. Recommendations and Plan: ?? Schedule diagnostic colonoscopy due to positive cologuard results to be scheduled at [facility] within the next 30 days. ?? Apixaban 5 mg twice daily and ASA 81 mg daily please discuss this with Dr. Wolf on proper hold time. ?? Will need clearance from Dr. Moser to hold Apixaban prior to colonoscopy. ?? Sutab prep ordered per patient request. Discussed importance of appropriate water consumption with Sutabs, especially in light of patients hx of CKD ?? It is recommended to consume 20-35 grams of fiber per day and at least 64 ounces/2 liters of water per day. ?? All questions answered ?? More recommendations to follow endoscopic evaluation Orders placed this encounter: Sutab bowel prep Risks/Benefits/Options: Patient presented with risks (can include but are not limited to: discomfort, missing lesions, allergic or adverse reaction to the sedation, perforation of the bowel or upper GI tract which may require hospitalization and surgery, bleeding, infection, aspiration), benefits, and alternatives to the procedure(s) and are in agreement to proceed as planned. Libra Couch NP 09/26/2021 documented in this encounter Plan of Treatment Not on file documented as of this encounter Visit Diagnoses Diagnosis Positive colorectal cancer screening using Cologuard test- Primary documented in this encounter Care Teams Supervisor [employer] Relationship Specialty Start Date End Date None, Provider, PCP - General 09/26/21 12/09/22 documented as of this encounter
--- OUTSIDE RECORDS SUMMARY | 2024-04-04 01:24 | XMS_ITS | Encounter Summary ---
Author Organization [facility] Address [facility] [place] [address] [place] [address] Care Team Providers Care Revising Clerk Name Role Phone None, Provider Primary Care Provider Unavaila ble Reason for Visit * Auth/Cert Specialty Diagnoses / Procedures Referred By Rocky blancas Referred To Contact Diagnoses Positive colorectal cancer screening using Cologuard test Positive cologuard Procedures COLONOSCOPY,DIAGNOSTIC COLONOSCOPY Referral ID Status Reason Start Date Expiration Date Visits Re quested Visits Authorized [id number] 1 1 Encounter Details Date Type Department Care Team (Late st Contact Info) Description 10/18/2021 12:40 PM CDT - 10/18/2021 1:00 PM CDT Surgery [facility] [place] [address] Prosper Tubbs MD [address] [address] COLONOSCOPY WITH ASCENDING, HEPATIC FLEXURE, AND TRANSVERSE, DESCENDING, AND SIGMOID COLON POLYPECTOMIES VIA HOT SNARE Surgery Details Date/Time Status Location OR Service Patient Class Case Class Case Type Trauma Case? 10/18/2021 12:40 PM Posted [facility] 3 Gastroenterology Short Stay/Outpa tient Surgery No Panel 1 Procedure LRB Anes Op Region Wound Class Comments COLONOSCOPY WITH ASCENDING, HEPATIC FLEXURE, AND TRANSVERSE, DESCENDING, AND SIGMOID COLON POLYPECTOMIES VIA HOT SNARE N/A General Clean Contami nated Surgeon Surgeon Role Service Panel Prosper Tubbs MD Primary Gastroenterology 1 documented in [...] Sign Reading Time Taken Comments Blood Pressure 164/66 10/18/2021 12:33 PM CDT Pulse 32 10/18/2021 12:33 PM CDT Temperature 36.8 ??C (98.2 ??F) 10/18/2021 12:33 PM C DT Respiratory Rate 18 10/18/2021 12:33 PM CDT Oxygen Saturation 98% 10/18/2021 12:33 PM CDT Inhaled Oxygen Concentration - - Weight 93.9 kg (207 lb) 10/09/2021 3:34 PM CDT Height 165.1 cm (5' 5 ) 10/09/2021 3:34 PM CDT Body Mass Index 34.45 10/09/2021 3:34 PM CDT documented in this encounter Discharge Instructions * Attachments The following attachments cannot be sent through Care Everywhere. * Colonoscopy Discharge Instructions ([place] Island[place]) * General Anesthesia Discharge Instructions ([place]) * Colon Polypectomy Discharge Instructions ([place] Island[place]) documented in this encounter Medications at Time of Discharge apixaban 5 MG tablet Take 1 tablet [...] tablet by mouth 3 (three) times daily. furosemide 40 MG tablet Take 1 tablet (40 mg total) by mouth daily. lisinopril 20 MG tablet Take 1 tablet [...] AFFECTED AREA(S) TWICE DAILY vitamin D2, ergocalciferol, 88316 UNITS capsule Take 1 capsule (50,000 Units total) by mouth once a week. 07/08/2021 documented as of this encounter Progress Notes * Prosper Tubbs MD - 10/18/2021 3:10 PM CDT Your colon polyps are all benign but precancerous. Repeat colon within 6 months to one year. * Jessica Prieto MA - 10/18/2021 3:10 PM CDT Pt verbally understands his results, will place a recall on his chart. documented in this encounter H&P Notes * Prosper Tubbs MD - 10/18/2021 12:40 PM CDT HISTORY AND PHYSICAL INTERVAL NOTE: I have reviewed Britton Nielsen History & Physical which was performed within the past 30 days.After examining Britton Nielsen, no change has occurred in the patient's condition since the H&P was completed. Informed Consent Discussion: Potential benefits, risks, and side effects of the patient's procedure/surgery; the likelihood of the patient achieving his or her goals; and any potential problems that might occur during recuperation were discussed with the patient/family/personal insurance healthcare representative. Reasonable alternatives to the patient's proposed procedure/surgery including benefits, risks, and side effects related to the alternatives and the risks related to not receiving the proposed care were also discussed with the patient/family/personal insurance healthcare representative. Questions were answered and the patient/family/personal insurance healthcare representative verbalized understanding and desires to proceed. Source Note - Libra Couch NP - 09/26/2021 3:20 PM [...] triple bypass 05/2020, HDL, multiple DVTs bilaterally (2016), bilateral peripheral neuropathy, anemia, stage 3 CKD, [...] , Rfl: ??? Sodium Sulfate-Mag Sulfate-KCl (SUTAB) [phone] MG Tab, Take 12 tablets by mouth [...] status: Former Smoker Packs/day: 1.50 Quit date: 2008 Years since quittin.4 ??? Smokeless tobacco: Never [...] positive cologuard results to be scheduled at [facility] within the next 30 days. ?? Apixaban [...] Couch NP 09/26/2021 documented in this encounter OR Notes * Op Note - Prosper Tubbs MD - 10/18/2021 2:25 PM CDT [facility] OpNote COLONOSCOPY WITH ASCENDING, HEPATIC FLEXURE, AND TRANSVERSE, DESCENDING, AND SIGMOID COLON POLYPECTOMIES VIA HOT SNARE Procedure Note Britton Nielsen 10/18/2021 1240 Procedure(s) (LRB): COLONOSCOPY WITH ASCENDING, HEPATIC FLEXURE, AND TRANSVERSE, DESCENDING, AND SIGMOID COLON POLYPECTOMIES VIA HOT SNARE (N/A) Surgeon(s): Prosper Tubbs MD Staff: Circulating Nurse 1: Sofia Bocanegra RN labor relations teacher: Tasia Ch Anesthesia: General Anesthesiologist: Royce Neri MD SENIOR CLINICAL RESEARCH SCIENTIST: Roberto Drummond CRNA Pre-Op Diagnosis: Positive cologuard Post-Op Diagnosis: Multiple polyps removed. Polyp at hepatic flexure removed in piecemeal fashion. Procedure Description: Informed consent was obtained earlier. Patient was brought to the OR and placed in supine lateral decubitus position and sedated under MAC anesthesia. PCF 190 colonoscope was lubricated inserted into the rectum and advanced to the cecum. Bowel prep was excellent. Cecum was identified by the ileocecal valve and the appendiceal orifice looked normal. In the ascending colon there were several polyps that were hot snared completely and removed and placed together. At the hepatic flexure there were 2 polyps were hot snared. One of the polyps was large and flat and to be removed in several pieces. Several more transverse polyps were removed by hot snare. Descending polyp removed by hot snare. There is a large sigmoid polyp on a stalk at 20 cm that was hot snared at the base. Rectum was normal. Retroflexion revealed mild hemorrhoids. Findings: Multiple colon polyps removed by hot snare. At the hepatic flexure 1 polyp had to be removed in pieces. Plan: Check all pathology. Repeat colonoscopy within 1 year. Complications: None. EBL 0. Estimated Blood Loss: * No values recorded between 10/18/2021 1:28 PM and 10/18/2021 2:21 PM * Specimens: Order Name Source Comment Collection Info Order Time PATHOLOGY COLON Collected By: Prosper Tubbs MD 10/18/2021 2:18 PM Release to patient System release Voice recognition software utilized. PROSPER TUBBS MD Date: 10/18/2021 Time: 2:25 PM Voice recognition software utilized. documented in this encounter Plan of Treatment Not on file documented as of this encounter Procedures Procedure Name Priority Date/Time Associated Diagnosis Comments COLONOSCOPY Routine 10/18/2021 2:28 PM CDT COLSC FLX W/RMVL OF TUMOR POLYP LESION SNARE TQ 10/18/2021 1:27 PM CDT Positive colorectal cancer screening using Cologuard test PATHOLOGY Routine 10/18/2021 12:00 AM CDT documented in this encounter Results * Pathology (10/18/2021 12:00 AM CDT) COPATH REPORT ?[facility] ? [address] ? [place], [place] ??[address] ? [phone] ? Department of Pathology ? Pathology Report ? SURGICAL FINAL REPORT Patient Name: BRITTON NIELSEN ? : 1955 (Age: 66) ?Location: [facility] Gender: M ?Collected Date: 10/18/2021 Med Rec #: [id number] ?Date Received: 10/18/2021 Date Reported: 10/19/2021 Provider: PROSPER TUBBS MD Specimen(s) A: Polyps, ascending colon B: Polyps, hepatic flexure C: Polyps, transverse colon D: Polyp, descending colon E: Polyp, sigmoid colon Final Pathologic Diagnosis A. ??LARGE INTESTINE, ASCENDING COLON, BIOPSY: ? FRAGMENTS OF TUBULAR ADENOMA ? NO HIGH GRADE DYSPLASIA B. ??LARGE INTESTINE, HEPATIC FLEXURE BIOPSY: ? FRAGMENTS OF TUBULAR ADENOMA ? NO HIGH GRADE DYSPLASIA C. ??LARGE INTESTINE, TRANSVERSE COLON, BIOPSY: ? FRAGMENTS OF TUBULAR ADENOMA ? NO HIGH GRADE DYSPLASIA D. ??LARGE INTESTINE, DESCENDING COLON, BIOPSY: ? TUBULAR ADENOMA ? NO HIGH GRADE DYSPLASIA E. ??LARGE INTESTINE, SIGMOID COLON, BIOPSY: ? TUBULOVILLOUS ADENOMA ? NO HIGH GRADE DYSPLASIA Electronically Signed Out ? HAYDEE ARGUELLES MD Pathologist SMO:pradeep Microscopic Description: Microscopic examination substantiates above diagnosis. Clinical History Positive cologuard Gross Description Received are five formalin-filled containers all labeled with the patient's name (Britton Nielsen), date of (1955). A. ??Additionally labeled ascending colon polyps collected 10/18/2021 at 1351. The specimen consists of three pink-lyles to red-pink polyps ranging from 0.5 cm up to 0.7 cm in greatest dimension. ??Two polyps are inked black, and the remaining polyp is inked green. ??The specimen is submitted entirely in cassettes A1 and A2, with a black and green-inked polyp each perpendicularly bisected and submitted entirely in cassette A1, and the remaining black-inked polyp perpendicularly bisected and submitted entirely in cassette A2. B. ??Additionally labeled hepatic flexure polyps collected 10/18/2021 at 1358. The specimen consists of four pink-lyles to red-pink polyps, ranging from 0.4 cm up to 0.6 cm in greatest dimension. ??The smaller two of the polyps are inked black and the surgical margin of the remaining two polyps are inked green. ??The specimen is submitted entirely in cassettes B1 and B2, with each cassette containing a single black and green-inked polyp perpendicularly bisected and submitted entirely. C. ??Additionally labeled transverse colon polyp collected 10/18/2021 at 1402. The specimen consists of three pink ??fragments of tissue, ranging from 0.2 cm up to 0.3 cm in greatest dimension. ??The specimen is submitted in toto in cassette C1. D. ??Additionally labeled descending colon polyp collected 10/18/2021 at 1409. The specimen consists of a single red polyp measuring 0.8 cm in greatest dimension. ??The potential surgical margin is inked black. ??The polyps is perpendicularly bisected (fragmentation of one aspect upon bisecting) and submitted entirely in cassette D1. E. ??Additionally labeled sigmoid colon polyp collected 10/18/2021 at 1513. The specimen consists of a single pink-red polyp, measuring 1.3 x 1.0 x 0.7 cm. The surgical margin is inked black. The polyp is perpendicularly sectioned and submitted entirely in cassette E1. ?? : Billing Fee Code(s): 89556(5) [facility] TISSUE COLON STRUCTURE / Unknown 10/18/2021 1:51 PM CDT Tissue specimen (specimen) COLON STRUCTURE / Unknown 10/18/2021 1:58 PM CDT Tissue specimen (specimen) COLON STRUCTURE / Unknown 10/18/2021 2:02 PM CDT Tissue specimen (specimen) COLON STRUCTURE / Unknown 10/18/2021 2:09 PM CDT Tissue specimen (specimen) COLON STRUCTURE / Unknown 10/18/2021 2:13 PM CDT Prosper Tubbs MD PATHOLOGY/CYTOLOGY ORDERABLES Fi nal Result [facility] [address] [place] [address], documented in this encounter Visit Diagnoses Diagnosis Positive colorectal cancer screening using Cologuard test- Primary Positive colorectal cancer screening using Cologuard test documented in this encounter Admitting Diagnoses Diagnosis Positive colorectal cancer screening using Cologuard test documented in this encounter Administered Medications Inactive Administered Medications - up to 3 most recent administrations Medication Order MAR Action Action Date Dose Rate Site lactated ringers infusion at 10 mL/hr, Intravenous, Continuous, Starting on Fri10/18/21 at 1245, Until Fri10/18/21 at 1716, Infuse at TKO rate, Pre-Op New Bag 10/18/2021 1:28 PM CDT simethicone (MYLICON) 40 MG/0.6ML suspension As needed, Starting on Fri10/18/21 at 1344, Until Fri10/18/21 at 1422, Intra-Op Given 10/18/2021 1:44 PM CDT 40 mg documented in this encounter Active and Recently Administered Medications Times are shown in CDT. Continuous Medication Order 10/16/2021 10/17/2021 10/18/2021 lactated ringers infusion at 10 mL/hr, Intravenous, Continuous, Starting on Anita 10/18/21 at 1245, Until Anita 10/18/21 at 1716, Infuse at TKO rate, Pre-Op 1328 (New Bag - Prov ider: Roberto Drummond CRNA)1420 (Anesthesia Volume Adjustment - Provider: Roberto Drummond CRNA) PRN Medication Order 10/16/2021 10/17/2021 10/18/2021 simethicone (MYLICON) 40 MG/0.6ML suspension (CANCELED) As needed, Starting on Anita 10/18/21 at 1344, Until Anita 10/18/21 at 1422, Intra-Op 1344 (Given - Provid er: Prosper Tubbs MD - Comment: per scope) documented in this encounter Care Teams Revising Clerk Relationship Specialty Start Date End Date None, Provider, PCP - General 09/26/21 12/09/22 documented as of this encounter
--- OUTSIDE RECORDS SUMMARY | 2024-04-04 01:24 | XMS_ITS | Encounter Summary ---
Author Organization [facility] Address [address] [place] [address]. [place], [place] [address] [place] [address] Care Team Providers Care Labels Molder Name Role Phone None, Provider Primary Care Provider Unavaila ble Encounter Details Date Type Department Care Team (Latest Contact Info) Description 10/09/2021 Travel Social History Tobacco Use Types Packs/Day Years [...] on filedocumented in this encounter Care Teams Labels Molder Relationship Specialty Start Date End Date None, Provider, PCP - General 09/26/21 12/09/22 documented as of this encounter
--- OUTSIDE RECORDS SUMMARY | 2024-04-04 01:24 | XMS_ITS | Encounter Summary ---
Author Organization [facility] Address [facility]. [place], [place] [address] [place] [address] Care Team Providers Care Ultra Sound Technician Name Role Phone Unavailable Primary Care Provider Unavailabl e Encounter Details Date Type Department Care Team (Late st Contact Info) Description 10/23/2007 Abstract [facility] CONVERSION [address] [place] [address] Austin Cervantes MD [address] [facility] [address] [place] [address] Social History Tobacco Use Types Packs/Day Years [...]
--- OUTSIDE RECORDS SUMMARY | 2024-04-04 01:24 | XMS_ITS | Encounter Summary ---
Author Organization [facility] Address [facility]6 [facility]. [place], [place] [address] [place] [address] Care Team Providers Care Garment Steamer Name Role Phone Cee Dc RECEIVING ROOM CLERK Primary Care Provid er Reason for Visit * Reason Onset Date Comments Prior Authorization 05/08/2023 Colonoscopy- [id number] Encounter Details Date Type Department Care Team (Late st Contact Info) Description 05/08/2023 Telephone [facility] 3 [facility] [address] [place] [address] Hunter Tubbs MD 3 [facility] [address] [place] [address] Prior Authorization (Colonoscopy-[id number]) Social History Tobacco Use Types Packs/Day Years [...] on file documented as of this encounter Progress Notes * Britney Manjarrez MA - 05/08/2023 8:12 AM CST Per Medicare guidelines no PA is required for colonoscopy (35692) scheduled on 06/02/2023 CTOR EDUCATION documented in this encounter Plan of Treatment Not on file documented as of this encounter Visit Diagnoses Not on filedocumented in this encounter Care Teams Garment Steamer Relationship Specialty Start Date End Date Cee Dc FNP [address] [place] [address] PCP - General NURSE PRACTITIONER 12/10/22 documented as of this encounter
--- OUTSIDE RECORDS SUMMARY | 2024-04-04 01:24 | XMS_ITS | Encounter Summary ---
Author Organization [facility] Address [facility]. [place], [place] [address] [place] [address] Care Team Providers Care Insole Doubler Name Role Phone Unavailable Primary Care Provider Unavailabl e Encounter Details Date Type Department Care Team (Late st Contact Info) Description 05/02/2011 Abstract [facility] CONVERSION [address] [place] [address] Austin Cervantes MD [address] [facility] [address] [place] [address] Social History Tobacco Use Types Packs/Day Years Used Date Smoking Tobacco: Never Assessed Sex and Gender Information Value Date Recorded Sex Assigned at Not on file Legal Sex Male 5:36 PM CDT Gender Identity Not on file Sexual Orientation Not on file documented as of this encounter Plan of Treatment Not on file documented as of this encounter Visit Diagnoses Diagnosis Mixed hearing loss, unilateral documented in this encounter
--- OUTSIDE RECORDS SUMMARY | 2024-04-04 01:24 | XMS_ITS | Encounter Summary ---
Author Organization [facility] Address [address] [place] [address]. [place], [place] [address] [place] [address] Care Team Providers Care Package Yarns Drying Machine Operator Name Role Phone Cee Dc Primary Care Provid er Encounter Details Date Type Department Care Team (Latest Contact Info) Description 06/02/2023 Travel Social History Tobacco Use Types Packs/Day [...] on filedocumented in this encounter Care Teams Package Yarns Drying Machine Operator Relationship Specialty Start Date End Date Cee Dc FNP [address] [place] [address] PCP - General NURSE PRACTITIONER 12/10/22 documented as of this encounter
--- OUTSIDE RECORDS SUMMARY | 2024-04-04 01:24 | XMS_ITS | Encounter Summary ---
Author Organization [facility] Address [address] [place] [address]. [place], [place] [address] [place] [address] Care Team Providers Care Car Filler Name Role Phone Cee Dc Primary Care Provid er Encounter Details Date Type Department Care Team (Latest Contact Info) Description 05/23/2023 Travel Social History Tobacco Use Types Packs/Day [...] on filedocumented in this encounter Care Teams Car Filler Relationship Specialty Start Date End Date Cee Dc FNP [address] [place] [address] PCP - General NURSE PRACTITIONER 12/10/22 documented as of this encounter
--- OUTSIDE RECORDS SUMMARY | 2024-04-04 01:24 | XMS_ITS | Encounter Summary ---
Author Organization [facility] Address [address] [place] [address]. [place], [place] [address] [place] [address] Care Team Providers Care Wage Analyst Name Role Phone Cee Dc FBI PROFILER Primary Care Provid er Reason for Visit * Auth/Cert (Routine) Specialty Diagnoses / Procedures Referred By Rocky t Referred To Contact Diagnoses Screening for colon cancer Personal history of colonic polyps screening colonoscopy Procedures COLONOSCOPY,DIAGNOSTIC COLONOSCOPY Hunter Tubbs MD [address] [address] Phone: tel: fax: Referral ID Status Reason Start Date Expiration Date Visits Re quested Visits Authorized [id number] 1 1 Encounter Details Date Type Department Care Team (Latest Contact Info) Description 06/02/2023 7:34 AM COUNTER SALES REPRESENTATIVE - 06/02/2023 10:45 AM [facility] Hospital Encounter [facility] [place] [address] Hunter Tubbs MD [address] [phone] Discharge Disposition: Home or Self Care (Routine Discharge) Social History Tobacco Use Types Packs/Day Years [...] Comments Blood Pressure 128/53 06/02/2023 9:55 AM COUNTER SALES REPRESENTATIVE Pulse 63 06/02/2023 9:33 AM COUNTER SALES REPRESENTATIVE Temperature 36 ??C (96.8 ??F) 06/02/2023 9:26 AM COUNTER SALES REPRESENTATIVE Respiratory Rate 20 06/02/2023 8:33 AM COUNTER SALES REPRESENTATIVE Oxygen Saturation 97% 06/02/2023 10:00 AM COUNTER SALES REPRESENTATIVE Inhaled Oxygen Concentration - - Weight 101.2 kg (223 lb) 05/23/2023 2:05 PM COUNTER SALES REPRESENTATIVE Height 166.4 cm (5' 5.5 ) 05/23/2023 2:05 PM COUNTER SALES REPRESENTATIVE Body Mass Index 36.54 05/23/2023 2:05 PM COUNTER SALES REPRESENTATIVE documented in this encounter Discharge Instructions * Discharge Instructions* Delaney Mensah RN - 06/02/2023 9:36 AM COUNTER SALES REPRESENTATIVE Repeat screening colonoscopy in 5 years TER SALES REPRESENTATIVE * Attachments The following attachments cannot be sent through Care Everywhere. 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 Family History [...] HUNTER TUBBS MD Voice recognition software utilized TER SALES REPRESENTATIVE documented in this encounter OR Notes * Op Note - Hunter Tubbs MD - 06/02/2023 9:27 AM CST [facility] OpNote COLONOSCOPY WITH REMOVAL SNARE TECH Procedure Note Britton Sepulveda Morales 06/02/2023 0930 Procedure(s) (LRB): COLONOSCOPY WITH REMOVAL SNARE TECH (N/A) Surgeon(s): Hunter Tubbs MD Staff: GI Nurse: Nely Muniz RN practical nursing teacher: Maximo Becker, NATIONAL FACILITIES MANAGER Anesthesia: General Anesthesiologist: Stan Hensley MD TREE WRAPPER: Margarita Garrett CRNA Pre-Op Diagnosis: screening colonoscopy [...] Time: 9:27 AM Voice recognition software utilized. TER SALES REPRESENTATIVE documented in this encounter Plan of Treatment Not on file documented as of this encounter Procedures Procedure Name Priority Date/Time Associated Diagnosis Comments COLONOSCOPY 06/02/2023 9:02 AM COUNTER SALES REPRESENTATIVE Screening for colon cancer Personal history of colonic polyps documented in this encounter Visit Diagnoses Diagnosis Screening for colon cancer Special screening for malignant neoplasms, colon Personal history of colonic polyps documented in this encounter Admitting Diagnoses Diagnosis Screening for colon cancer Special screening for malignant neoplasms, colon Personal history of colonic polyps documented in this encounter Active and Recently Administered Medications Times are shown in COUNTER SALES REPRESENTATIVE. PRN Medication Order 05/31/2023 06/01/2023 06/02/2023 simethicone (MYLICON) 40 MG/0.6ML suspension (CANCELED) As needed, Starting on Fri06/02/23 at 0920, Until Fri06/02/23 at 0930, Intra-Op 0920 (Given - Provid er: Hunter Tubbs MD - Comment: colonoscopy irrigation) documented in this encounter Care Teams Wage Analyst Relationship Specialty Start Date End Date Cee Dc FNP [address] [place] [address] PCP - General NURSE PRACTITIONER 12/10/22 documented as of this encounter
--- OUTSIDE RECORDS SUMMARY | 2024-04-04 01:24 | XMS_ITS | Encounter Summary ---
Author Organization [facility] Address [address] [place] [address]. [place], [place] [address] [place] [address] Care Team Providers Care Retail Sales Vitamin Consultant Name Role Phone None, Provider Primary Care Provider Unavaila ble Encounter Details Date Type Department Care Team (Latest Contact Info) Description 09/26/2021 Travel Social History Tobacco Use Types Packs/Day [...] on filedocumented in this encounter Care Teams Retail Sales Vitamin Consultant Relationship Specialty Start Date End Date None, Provider, PCP - General 09/26/21 12/09/22 documented as of this encounter
--- OUTSIDE RECORDS SUMMARY | 2024-04-04 01:24 | XMS_ITS | Encounter Summary ---
Author Organization [facility] Address Formerly [facility] [place] [address] [place] [address] Care Team Providers Care Wheel Tuner Name Role Phone None, Provider Primary Care Provider Unavaila ble Reason for Visit * Auth/Cert Specialty Diagnoses / Procedures Referred By Rocky blancas Referred To Contact Diagnoses Positive colorectal cancer screening using Cologuard test Positive cologuard Procedures COLONOSCOPY,DIAGNOSTIC COLONOSCOPY Referral ID Status Reason Start Date Expiration Date Visits Re quested Visits Authorized [id number] 1 1 Encounter Details Date Type Department Care Team (Latest Contact Info) Description 10/18/2021 11:25 AM CDT - 10/18/2021 3:10 PM CDT Hospital Encounter [facility] [place] [address] Hunter Tubbs MD [address] [address] Discharge Disposition: Home or Self Care (Routine [...] Sign Reading Time Taken Comments Blood Pressure 151/61 10/18/2021 2:35 PM CDT Pulse 61 10/18/2021 2:35 PM CDT Temperature 36.2 ??C (97.1 ??F) 10/18/2021 2:21 PM CD T Respiratory Rate 16 10/18/2021 2:35 PM CDT Oxygen Saturation 100% 10/18/2021 2:35 PM CDT Inhaled Oxygen Concentration - - Weight 93.9 kg (207 lb) 10/09/2021 3:34 PM CDT Height 165.1 cm (5' 5 ) 10/09/2021 3:34 PM CDT Body Mass Index 34.45 10/09/2021 3:34 PM CDT documented in this encounter Discharge Instructions * Attachments The following attachments cannot be sent through Care Everywhere. * Colonoscopy Discharge Instructions (Kittitian) * General Anesthesia Discharge Instructions (Kittitian) * Colon Polypectomy Discharge Instructions (Kittitian) documented in this encounter Medications at Time [...] AFFECTED AREA(S) TWICE DAILY vitamin D2, ergocalciferol, 71617 UNITS capsule Take 1 capsule (50,000 Units total) by mouth once a week. 07/08/2021 documented as of this encounter Progress Notes * Hunter Tubbs MD - 10/18/2021 3:10 PM CDT Your colon polyps are all benign but precancerous. Repeat colon within 6 months to one year. * Jessica Prieto MA - 10/18/2021 3:10 PM CDT Pt verbally understands his results, will place a recall on his chart. documented in this encounter H&P Notes * Hunter Tubbs MD - 10/18/2021 12:40 PM CDT [...] during recuperation were discussed with the patient/family/personal client service representative. Reasonable alternatives to the patient's proposed procedure/surgery including benefits, risks, and side effects related to the alternatives and the risks related to not receiving the proposed care were also discussed with the patient/family/personal client service representative. Questions were answered and the patient/family/personal client service representative verbalized understanding and desires to proceed. [...] , Rfl: ??? Sodium Sulfate-Mag Sulfate-KCl (SUTAB) 2895-381-035 MG Tab, Take 12 tablets by mouth [...] positive cologuard results to be scheduled at [facility] within the next 30 days. ?? Apixaban [...] Op Note - Hunter Tubbs MD - 10/18/2021 2:25 PM CDT [facility] OpNote COLONOSCOPY WITH ASCENDING, HEPATIC FLEXURE, AND TRANSVERSE, DESCENDING, AND SIGMOID COLON POLYPECTOMIES VIA HOT SNARE Procedure Note Britton Nielsen 10/18/2021 1240 Procedure(s) (LRB): COLONOSCOPY WITH ASCENDING, HEPATIC FLEXURE, AND TRANSVERSE, DESCENDING, AND SIGMOID COLON POLYPECTOMIES VIA HOT SNARE (N/A) Surgeon(s): Hunter Tubbs MD Staff: Circulating Nurse 1: Sofia Bocanegra RN salvage engineer: Tasia Ch Anesthesia: General Anesthesiologist: Royce Neri MD MUSICAL INSTRUMENT SUPERVISOR: Roberto Drummond CRNA Pre-Op Diagnosis: Positive cologuard [...] Info Order Time PATHOLOGY COLON Collected By: Hunter Tubbs MD 10/18/2021 2:18 PM Release to patient System release Voice recognition software utilized. HUNTER TUBBS MD Date: 10/18/2021 Time: 2:25 PM [...] Pathology (10/18/2021 12:00 AM CDT) COPATH REPORT ?[facility] ? [address] [facility]. ? [place], [place] ??[address] ? [id number] ? Department of Pathology ? Pathology Report ? SURGICAL FINAL REPORT Patient Name: BRITTON NIELSEN ? : 1955 (Age: 66) ?Location: [facility] Gender: M ?Collected Date: 10/18/2021 Med Rec #: [id number] ?Date Received: 10/18/2021 Date Reported: 10/19/2021 Provider: HUNTER TUBBS MD Specimen(s) A: Polyps, ascending colon [...] Signed Out ? HAYDEE ARGUELLES MD Pathologist SMO:lc Microscopic Description: Microscopic examination substantiates above diagnosis. [...] and submitted entirely in cassette E1. ?? :pradeep Billing Fee Code(s): 32524(5) [facility] TISSUE COLON STRUCTURE / Unknown 10/18/2021 1:51 PM CDT Tissue specimen (specimen) COLON STRUCTURE / Unknown 10/18/2021 1:58 PM CDT Tissue specimen (specimen) COLON STRUCTURE / Unknown 10/18/2021 2:02 PM CDT Tissue specimen (specimen) COLON STRUCTURE / Unknown 10/18/2021 2:09 PM CDT Tissue specimen (specimen) COLON STRUCTURE / Unknown 10/18/2021 2:13 PM CDT us Hunter Tubbs MD PATHOLOGY/CYTOLOGY ORDERABLES Fi nal Result [facility] [address] [place] [address], [place] [phone] documented in this encounter Visit Diagnoses Diagnosis Positive colorectal cancer screening using Cologuard test- Primary documented in this encounter Admitting Diagnoses Diagnosis [...] Pre-Op New Bag 10/18/2021 1:28 PM CDT documented in this encounter Active and Recently [...] 1422, Intra-Op 1344 (Given - Provid er: Hunter Tubbs MD - Comment: per scope) documented in this encounter Care Teams Wheel Tuner Relationship Specialty Start Date End Date None, Provider, PCP - General 09/26/21 12/09/22 documented as of this encounter
--- OUTSIDE RECORDS SUMMARY | 2024-04-04 01:24 | XMS_ITS | Encounter Summary ---
Author Organization [facility] Address [address] [place] [address]. [place], [place] [address] [place] [address] Care Team Providers Care Disintegrator Name Role Phone Unavailable Primary Care Provider Unavailabl e Encounter Details Date Type Department Care Team (Late st Contact Info) Description 07/25/2007 Abstract [facility] Emergency Room [address] [place] [address] , Zenia French MD Social History Tobacco Use Types Packs/Day [...]
--- OUTSIDE RECORDS SUMMARY | 2024-04-04 01:24 | XMS_ITS | Encounter Summary ---
Author Organization [facility] Address Formerly [facility], [facility]. [place], [place] [address] [place] [address] Care Team Providers Care Monotype Machinist Name Role Phone Cee Dc SHRIMP PEELING MACHINE TENDER Primary Care Provid er Reason for Visit * Reason Onset Date Comments Record Request 12/10/2023 Encounter Details Date Type Department Care Team (Late st Contact Info) Description 12/10/2023 Telephone [facility] Multispecialty Care - [facility] [address] [facility] [address] [place] [address] Hunter Tubbs MD 3 [facility] [address] [place] [address] Record Request Social History Tobacco Use Types Packs/Day Years [...] as of this encounter Progress Notes * Rosy Posadas LPN - 12/11/2023 9:27 AM CDT Requested records faxed * Judith Todd - 12/10/2023 2:31 PM CDT Pt is needing the last colonoscopy and office notes and cologard, sent to [facility]. Please and thank you! documented in this encounter Plan of Treatment Not on file documented as of this encounter Visit Diagnoses Not on filedocumented in this encounter Care Teams Monotype Machinist Relationship Specialty Start Date End Date Cee Dc FNP [address] [place] [address] PCP - General NURSE PRACTITIONER 12/10/22 documented as of this encounter
--- OUTSIDE RECORDS SUMMARY | 2024-04-04 01:24 | XMS_ITS | Encounter Summary ---
Author Organization [facility] Address Formerly [facility]. [place], [place] [address] [place] [address] Care Team Providers Care Equipment Maint Tech Name Role Phone None, Provider MD Primary Care Provider Unavaila ble Reason for Referral * Surgical (Routine) - Closed Specialty Diagnoses / Procedures Referred By Rocky blancas Referred To Contact Diagnoses Positive colorectal cancer screening using Cologuard test Procedures Case request operating room: COLONOSCOPY Hunter Tubbs MD [address] [place] [address] [place] [address] Phone: tel: fax: Referral ID Status Reason Start Date Expiration Date Visits Re quested Visits Authorized [id number] Closed 10/08/2021 11/08/2022 1 1 Encounter Details Date Type Department Care Team (Late st Contact Info) Description 10/08/2021 Orders Only [facility] Medical [facility] Multispecialty Care - [address] [place] [address] Hunter Tubbs MD [address] [place] [address] [address] [place], [place] [id number] Social History Tobacco Use Types Packs/Day Years [...] as of this encounter Plan of Treatment Scheduled Orders Name Type Priority Associated Diagnoses Orde r Schedule Case request operating room: COLONOSCOPY Case Request Routine Positive colorectal cancer screening using Cologuard test Expected: 10/17/2021, Expires: 10/08/2022 documented as of this encounter Visit Diagnoses Diagnosis Positive colorectal cancer screening using Cologuard test- Primary documented in this encounter Care Teams Equipment Maint Tech Relationship Specialty Start Date End Date None, Provider, PCP - General 09/26/21 12/09/22 documented as of this encounter
--- OUTSIDE RECORDS SUMMARY | 2024-04-04 01:24 | XMS_ITS | Encounter Summary ---
Author Organization [facility] Address [address] [place] [address]. [place], [place] [address] [place] [address] Care Team Providers Care Bindery Machine Setter Name Role Phone Cee Dc Primary Care Provid er Encounter Details Date Type Department Care Team (Latest Contact Info) Description 01/29/2023 Travel Social History Tobacco Use Types Packs/Day [...] on filedocumented in this encounter Care Teams Bindery Machine Setter Relationship Specialty Start Date End Date Cee Dc FNP [address] [place] [address] PCP - General NURSE PRACTITIONER 12/10/22 documented as of this encounter
--- OUTSIDE RECORDS SUMMARY | 2024-04-04 01:24 | XMS_ITS | Clinical Summary ---
Author Organization [facility] Address [facility] [place] [address] [place] [address] Care Team Providers Care Jeep Mechanic Name Role Phone Cee Dc TIE BUCKER Primary Care Provid er Allergies No known active allergies Medications potassium chloride CR 20 MEQ tablet Take 1 tablet (20 mEq total) by mouth 2 (two) times a day. Active atorvastatin 40 MG tablet Take 1 tablet (40 mg total) by mouth nightly at bedtime. Active lisinopril 20 MG tablet Take 1 tablet (20 mg total) by mouth daily. Active furosemide 40 MG tablet Take 1 tablet (40 mg total) by mouth daily. Active aspirin 81 MG chewable tablet Chew 1 tablet (81 mg total) by mouth daily. Active atorvastatin 40 MG tablet atorvastatin 40 mg tablet TAKE 1 TABLET BY MOUTH ONCE DAILY 1 Active calcium citrate-vitami n D 200-250 MG-UNIT Tab Take 1 tablet by mouth 3 (three) times daily. Active aspirin EC (ECOTRIN) 81 MG tablet Take 1 tablet (81 mg total) by mouth daily. Active tadalafil 20 MG tablet tadalafil 20 mg tablet TAKE 1 TABLET BY MOUTH ONCE DAILY NEEDED 2 Active traMADol 50 MG tablet Take 1 tablet (50 mg total) by mouth 2 (two) times daily as needed. 2 Active triamcinolone 0.1 % cream triamcinolone acetonide 0.1 % topical cream APPLY A THIN LAYER TOPICALLY TO AFFECTED AREA(S) TWICE DAILY Active apixaban 5 MG tablet Take 1 tablet (5 mg total) by mouth 2 (two) times daily. 2 Active vitamin D2, ergocalciferol , 70593 UNITS capsule Take 1 capsule (50,000 Units total) by mouth once a week. 2 Active vitamin E 100 UNIT capsule Take 1 capsule (100 Units total) by mouth daily. Active ferrous sulfate (BHUPENDRA-IN-ELISEO) 75 (15 Fe) MG/ML Solution Activ e albuterol sulfate HFA 108 (90 Base) MCG/ACT inhaler INHALE 2 PUFFS BY MOUTH EVERY 4 HOURS NEEDED FOR SHORTNESS OF BREATH FOR WHEEZING 3 Active ANORO ELLIPTA 62.5-25 MCG/ACT inhaler Inhale 1 puff into the lungs daily. 3 Active labetalol (NORMODYNE) 200 MG tablet Take 0.5 tablets (100 mg total) by mouth 2 (two) times daily. Dos 06/02/23 3 Active irbesartan (AVAPRO) 150 MG tablet Take 1 tablet (150 mg total) by mouth daily. Active Active Problems Problem Noted Date Diagnosed Date Screening for colon cancer 01/30/2023 Overview (01/30/2023): Added automatically from request for surgery [id number] Personal history of colonic polyps 01/30/2023 Overview (01/30/2023): Added automatically from request for surgery [id number] Positive colorectal cancer screening using Colog uard test 10/08/2021 Overview (10/08/2021): Added automatically from request for surgery [id number] Family History Medical History Relation Comments cancer,small cell Brother 1 Heart Disease Brother 2 CHF Father Heart Disease Father Heart Disease Mother Diabetic kidney disease Sister Relation Status Comments Brother 1 Brother 2 Alive Father Mother Sister Social History Tobacco Use Types Packs/Day Years Used Date Smoking Tobacco: Former Cigarettes Q uit: 2009 Smokeless Tobacco: Never Tobacco Cessation:Counseling Given: Not [...] Comments Blood Pressure 128/53 06/02/2023 9:55 AM VP GENETIC Pulse 63 06/02/2023 9:33 AM VP GENETIC Temperature 36 ??C (96.8 ??F) 06/02/2023 9:26 AM VP GENETIC Respiratory Rate 20 06/02/2023 8:33 AM VP GENETIC Oxygen Saturation 97% 06/02/2023 10:00 AM VP GENETIC Inhaled Oxygen Concentration - - Weight 101.2 kg (223 lb) 05/23/2023 2:05 PM VP GENETIC Height 166.4 cm (5' 5.5 ) 05/23/2023 2:05 PM VP GENETIC Body Mass Index 36.54 05/23/2023 2:05 PM VP GENETIC Plan of Treatment Health Maintenance Due Date Last Done Comments Hepatitis C 02/14/1972 DTaP, Tdap and Td Vaccines (1 - Tdap) 1973 Zoster Vaccines (1 of 2) 02/14/2004 AAA SCREENING 2019 Annual Medicare Wellness Visit 2019 Pneumococcal Vaccine: 65+ Years (2 of 2 - PPSV23 or PCV20) 02/09/2022 02/09/2021, 05/01/2017 COVID-19 Vaccine (4 - season) 2023 02/09/2021, 07/11/2020, 05/13/2020 Influenza Adult (#1) 2023 12/29/2021, 02/21/2021, 05/13/2020, Additional history exists RSV Immunization or 60+ Years (1 - 1-dose 75+ series) 2029 Colorectal Cancer Screening Colonoscopy (10 Years) 06/01/2033 06/02/2023, 10/18/2021, 10/18/2021 Meningococcal Vaccine Aged Out No halle claudia eligible based on patient's age to complete this topic RSV Immunizations Under 20 Months Aged Out No longer eligible based on patient's age to complete this topic Procedures Procedure Name Priority Date/Time Associated Diagnosis Comments COLONOSCOPY Routine 10/18/2021 2:28 PM CDT from Last 3 Months or Most Recently Relevant to Health Maintenance Insurance MEDICARE [facility] Care Teams Jeep Mechanic Relationship Specialty Start Date End Date Cee Dc FNP [address] [place] [address] PCP - General NURSE PRACTITIONER 12/10/22
--- OUTSIDE RECORDS SUMMARY | 2024-04-04 01:24 | XMS_ITS | Encounter Summary ---
Author Organization [facility] Address [facility] [place] [address] [place] [address] Care Team Providers Care Lpn Rn Name Role Phone None, Provider Primary Care Provider Unavaila ble Reason for Visit * Auth/Cert Specialty Diagnoses / Procedures Referred By Rocky blancas Referred To Contact Diagnoses Positive colorectal cancer screening using Cologuard test Positive cologuard Procedures COLONOSCOPY,DIAGNOSTIC COLONOSCOPY Referral ID Status Reason Start Date Expiration Date Visits Re quested Visits Authorized [id number] 1 1 Encounter Details Date Type Department Care Team (Late st Contact Info) Description 10/18/2021 1:28 PM CDT Anesthesia Event [facility] [place] [address] Royce Neri MD [address] [address] Anesthesia Record Procedure Summary Procedure Name Responsible Anesthesiologist Anesthesia Start Time Anesthesia Stop Time COLONOSCOPY WITH ASCENDING, HEPATIC FLEXURE, AND TRANSVERSE, DESCENDING, AND SIGMOID COLON POLYPECTOMIES VIA HOT SNARE Royce Neri MD 10/18/21 1328 10/18/21 1421 Events Date Time Event Comment 10/18/2021 1230 1230 AN Anesthesia Prepped 1328 An Start Patient ID and consent checked and patient reassessed. 1328 An Start Data 1328 Nasal Cannula Applied 1328 Preoxygenation 1339 An Induction The patient was reevaluated immediately before moderate or deep sedation use and before anesthesia induction. 1339 Anesthesia Ready 1417 An Emergence 1420 Nasal Cannula Removed 1420 Post Anesthetic Care Handoff I completed my handoff to the receiving nurse during which we: 1. Identified the patient 2. Identified the responsible provider 3. Reviewed the pertinent medical history 4. Discussed the surgical course 5. Reviewed intra-op anesthesia management and issues during anesthesia 6. Set expectations for post-procedure period 7. Allowed opportunity for questions and acknowledgement of understanding. 1421 an stop data 1421 An Stop Meds Name Total propofol (DIPRIVAN) 200 mg/20 mL injecti on 610 mg lactated ringers infusion 500 mL * Agents Name O2 Ancillary O2 * Blood No blood administrations on file. Lines, Drains, and Airways Type Details Placement Removal Peripheral IV Placement Date: 09/29 04/21; Placement Time: 1309; Placed Outside of This Facility?: No; Size: 22 G; Orientation: Left; Location: Wrist; Site Prep: Chlorhexidine; Local Anesthetic: None; Inserted By: Aleena ONTIVEROS; Insertion attempts: 1; Ultrasound-guided Placement?: No; Patient Tolerance: Tolerated well; Removal Date: 10/18/21; Removal Time: 1439; Removal Reason: Patient Discharged 10/18/21 1309 by Aleena Patten RN 10/18/21 1439 by Sonia Leigh RN documented in this encounter Social History [...] PM CDT documented as of this encounter OR Notes * Anesthesia Postprocedure Evaluation - Royce Neri MD - 10/18/2021 3:02 PM CDT Anesthesia Post-op Note Britton Nielsen Procedure(s): COLONOSCOPY WITH ASCENDING, HEPATIC FLEXURE, AND TRANSVERSE, DESCENDING, AND SIGMOID COLON POLYPECTOMIES VIA HOT SNARE (N/A ) Anesthesia type: general Vitals: 10/18/21 1435 BP: (!) 151/61 Vitals: 10/18/21 1435 Pulse: 61 Vitals: 10/18/21 1435 Resp: 16 Vitals: 10/18/21 1421 Temp: 36.2 ??C Vitals: 10/18/21 1435 SpO2: 100% Patient Location: Phase II/Outpatient Level of Consciousness: awake Pain Management: adequate analgesia Airway Patency: patent Respiratory Status: acceptable Cardiovascular Status: acceptable Post-Op Nausea: none Postoperative Hydration: euvolemic Encounter Complications Complication Outcome Phase Comment None Intraprocedure No known anesthesia related complications. * Anesthesia Postprocedure Evaluation - Royce Neri MD - 10/18/2021 2:30 PM CDT Anesthesia Post-op Note Britton Nielsen Procedure(s): COLONOSCOPY WITH ASCENDING, HEPATIC FLEXURE, AND TRANSVERSE, DESCENDING, AND SIGMOID COLON POLYPECTOMIES VIA HOT SNARE (N/A ) Anesthesia type: general Vitals: 10/18/21 1435 BP: (!) 151/61 Vitals: 10/18/21 1435 Pulse: 61 Vitals: 10/18/21 1435 Resp: 16 Vitals: 10/18/21 1421 Temp: 36.2 ??C Vitals: 10/18/21 1435 SpO2: 100% Patient Location: Endoscopy Level of Consciousness: awake Pain Management: adequate analgesia Airway Patency: patent Respiratory Status: acceptable Cardiovascular Status: acceptable Post-Op Nausea: none Postoperative Hydration: euvolemic No complications documented. * Anesthesia Preprocedure Evaluation - Royce Neri MD - 10/18/2021 12:20 PM CDT Anesthesia ROS/MED History Reviewed: Patient summary , ECG, Family history anesthesia, Anesthesia history , Medications , Labs , Images/Studies , Unchecked boxes are not applicable Pre-Anesthetic State: alert, awake and responds appropriately no history of anesthetic complications Pulmonary (+) sleep apnea Cardiovascular (+) CAD (S/P cabg 2020 ), (CABG) ROS comment: Sees machine rigger on regular basis S/P CABG Neuro/Psych GI/Hepatic/Renal (+) renal disease, (CRI) Endo/Other (+) blood dyscrasia, (Anemia) GENERAL COMMENTS No Known Allergies Past Medical History: No date: Anemia, unspecified No date: Sleep apnea, unspecified 2016: Stage 3 chronic kidney disease (CMS/HCC) Comment: went into renal failure Past Surgical History: No date: EGD 05/2020: REPR ANOMAL COR ART BY GRFT W PASS Comment: triple by pass Physical Evaluation Airway Mallampati: III TM Distance: >3 FB Neck ROM: normal Comment: Facial hair Dental Pulmonary Pulmonary exam normal Breath sounds clear to auscultation Cardiovascular Rhythm: regular Rate: normal Cardiovascular exam normal Other findings: Height 5' 5 (1.651 m), weight 93.9 kg (207 lb). No results for input(s): WBC, RBC, HGB, HCT, PLT, NA, K, CL, CO2, AGAP, BUN, CR, BUNCREATININ, GFRNON, GFR, GLU, CA in the last 72 hours. Anesthesia Plan ASA 3 Intravenous Induction Anesthesia type: general Plan for Airway: nasal cannula/simple face mask Plan for Post-op Pain Plan: as per surgeon Discussed potential risks of General Anesthesia including but not limited to corneal abrasion, visual impairment or visual loss, mouth injury, dental damage, sore throat, hoarseness, esophageal injury, awareness under anesthesia, nerve injury due to positioning, aspiration, pneumonia, stroke, cardiac event, adverse drug reactions and . Tiva anesthetic planned and discussed. Possible GA as needed. Informed Consent Anesthetic plan and risks discussed with patient of whom consent was obtained. . documented in this encounter Plan of Treatment [...] Pre-Op New Bag 10/18/2021 1:28 PM CDT propofol (DIPRIVAN) IV bolus Intravenous, PRN, Starting on Anita 10/18/21 at 1339, Until Anita 10/18/21 at 1421, Anesthesia Intra-Op Given 10/18/2021 2:12 PM CDT 20 mg Given 10/18/2021 2:09 PM CDT 30 mg Given 10/18/2021 2:07 PM CDT 50 mg documented in this encounter Care Teams Lpn Rn Relationship Specialty Start Date End Date None, Provider, PCP - General 09/26/21 12/09/22 documented as of this encounter
--- OUTSIDE RECORDS SUMMARY | 2024-04-04 01:24 | XMS_ITS | Encounter Summary ---
Author Organization [facility] Address Formerly [facility], [id number] [facility]. [place], [place] [address] [place] [address] Care Team Providers Care Assembler Show Motor Name Role Phone Unavailable Primary Care Provider Unavailabl e Encounter Details Date Type Department Care Team (Late st Contact Info) Description 02/21/2012 Abstract [facility] Emergency Room [address] [place] [address] Sagar Posadas MD [address] [address] Social History Tobacco Use Types Packs/Day Years Used Date Smoking Tobacco: Never Assessed Sex and Gender Information Value Date Recorded Sex Assigned at Not on file Legal Sex Male 5:36 PM CDT Gender Identity Not on file Sexual Orientation Not on file documented as of this encounter Plan of Treatment Not on file documented as of this encounter Visit Diagnoses Diagnosis Pain in soft tissues of limb Pain in limb documented in this encounter
--- OUTSIDE RECORDS SUMMARY | 2024-04-04 01:24 | XMS_ITS | Encounter Summary ---
Author Organization [facility] Address [address] [place] [address]. [place], [place] [id number] [place] [address] Care Team Providers Care Cutter Plastics Rolls Name Role Phone None, Provider MD Primary Care Provider Unavaila ble Reason for Visit * Reason Onset Date Comments Medication Problem 10/03/2021 Encounter Details Date Type Department Care Team (Late st Contact Info) Description 10/03/2021 Telephone [facility] Medical Group Multispecialty Care - [facility] [address] [facility], [address] [place] [phone] Libra Couch NP [address] [facility] [place], [place] [phone] Medication Problem Social History Tobacco Use Types Packs/Day Years [...] PM CDT documented as of this encounter Progress Notes * Apple Ferreira - 10/04/2021 2:59 PM CDT Message given to patient Miralax instructions mailed. * Michael Javed NP - 10/04/2021 2:27 PM CDT Per advise of patient's Powerhouse Laborer, please advise patient on OTC Miralx prep * Apple Ferreira - 10/04/2021 2:[address] Barnard returned the office call, he said there is not a lot of good prep options for the patient. He said that the Sutab and Golytely has a lot of potassium and magnesium in it. His best suggestion will be the Miralax prep. * Apple Ferreira - 10/04/2021 1:39 PM CDT Spoke with patient his kidney doctor is Dr. Gilmer Barnard [phone]. Spoke with Apple at Dr. Barnard's office she will check with the doctor and let us know which prep patient can have. * Michael Javed NP - 10/04/2021 1:21 PM CDT Can we get his Powerhouse Laborer information to call them directly since we typically give Golytely withrenal disease. * Sukhdeep Hopper - 10/04/2021 10:10 AM CDT Pt states he needs to speak with his provider. He says that the Golytely has Sodium Sulfate in it as well, and he cannot take it. He has very emphatically stated that he is not going to have anythingdone unless his Powerhouse Laborer signs off on it. Pt has requested a call back to discuss. [phone] * Michael Javed NP - 10/04/2021 9:13 AM CDTAddended by: MICHAEL JAVED on: 10/04/2021 09:13 AM Modules accepted: Orders * Michael Javed NP - 10/04/2021 9:12 AM CDT Medication sent to [facility] per patient request * Apple Ferreira - 10/04/2021 8:47 AM CDTAddended by: APPLE FERREIRA on: 10/04/2021 08:47 AM Modules accepted: Orders * Apple Ferreira - 10/04/2021 8:38 AM CDT Message given to patient she asked for the prescription to go to [facility] * Michael Javed NP - 10/03/2021 3:57 PM CDTAddended by: MICHAEL JAVED on: 10/03/2021 03:57 PM Modules accepted: Orders * Michael Javed NP - 10/03/2021 3:53 PM CDT The risks and potential high cost of Suptab had been discussed at previous visit and patient had wished to proceed with Suptab at that time. I have sent a prescription for Golytely as an alternative prep. Please review instructions with the patient. * Apple Ferreira - 10/03/2021 3:50 PM CDT Please advise which prep should patient do? * Dedra Duggan - 10/03/2021 3:32 PM CDT Pt called and stated that the Pt saw his kidney doctor and was informed that he can not take the Sutab bowel prep due to the medication having sulfate. Pt states that they have paid $100 for the medication that he can no longer take. Please give Pt a call back to discuss and advise [phone] documented in this encounter Plan of Treatment Not on file documented as of this encounter Visit Diagnoses Diagnosis Positive colorectal cancer screening using Cologuard test- Primary documented in this encounter Care Teams Cutter Plastics Rolls Relationship Specialty Start Date End Date None, Provider, PCP - General 09/26/21 12/09/22 documented as of this encounter
--- OUTSIDE RECORDS SUMMARY | 2024-04-04 01:24 | XMS_ITS | Encounter Summary ---
Author Organization [facility] Address Formerly [facility]. [place], [place] [id number] [place] [address] Care Team Providers Care Audio Visual Arts Director Name Role Phone Cee Dc DOCTOR ASSISTANT Primary Care Provid er Reason for Referral * Surgical (Routine) - Closed Specialty Diagnoses / Procedures Referred By Rocky blancas Referred To Contact Diagnoses Screening for colon cancer Personal history of colonic polyps Procedures Case request operating room: COLONOSCOPY Hunter Tubbs MD [address] [place] [address] [place] [address] Phone: tel: fax: Referral ID Status Reason Start Date Expiration Date Visits Re quested Visits Authorized [id number] Closed 01/29/2023 01/30/2024 1 1 Encounter Details Date Type Department Care Team (Late st Contact Info) Description 01/29/2023 Orders Only [facility] Medical Group Multispecialty Care - [address] [place] [address] Hunter Tubbs MD [address] [place] [address] [place] [id number] Social History Tobacco Use Types Packs/Day Years [...] request operating room: COLONOSCOPY Case Request Routine Screening for colon cancer Personal history of colonic polyps Ordered: 01/29/2023 documented as of this encounter Visit Diagnoses Diagnosis Screening for colon cancer- Primary Special screening for malignant neoplasms, colon Personal history of colonic polyps documented in this encounter Care Teams Audio Visual Arts Director Relationship Specialty Start Date End Date Cee Dc FNP [address] [place] [address] PCP - General NURSE PRACTITIONER 12/10/22 documented as of this encounter
--- OUTSIDE RECORDS SUMMARY | 2024-04-04 01:24 | XMS_ITS | Encounter Summary ---
Author Organization [facility] Address [address] [place] [address]. [place], [place] [address] [place] [address] Care Team Providers Care Package Winder Name Role Phone None, Provider MD Primary Care Provider Unavaila ble Reason for Visit * Reason Onset Date Comments Surgical Clearance 10/16/2021 Encounter Details Date Type Department Care Team (Late st Contact Info) Description 10/16/2021 Telephone [facility] Medical Group Multispecialty Care - [facility] [address] [facility], [address] [place] [phone] Hunter Tubbs MD 3 [facility] [address] [place] [address] Surgical Clearance Social History Tobacco Use Types Packs/Day Years [...] encounter Progress Notes * Apple Ferreira - 10/16/2021 3:51 PM CDT Spoke with patient he was informed to hold Apixaban for 3 days prior to procedure. documented in this encounter Plan of Treatment Not on file documented as of this encounter Visit Diagnoses Not on filedocumented in this encounter Care Teams Package Winder Relationship Specialty Start Date End Date None, Provider, PCP - General 09/26/21 12/09/22 documented as of this encounter
--- OUTSIDE RECORDS SUMMARY | 2024-04-04 01:27 | XMS_ITS | Encounter Summary ---
Author Organization [facility] Address [address] [place] [address] Phone Care Team Providers Care Vendor Quality Supervisor Name Role Phone Scott Oneill MD Primary Care Provider Tavo Mishra MD Unavailable [phone] Kev Moser MD Unavailable [phone] Reason for Visit * Reason Comments Medication Refill Encounter Details Date Type Department Care Team (Late st Contact Info) Description 03/26/2024 Refill [facility] [address] [place] [address] Kev Moser MD [address] [place] [address] Medication Refill Social History Tobacco Use Types Packs/Day Years Used Date Smoking Tobacco: Former Cigarettes 1 30 0 05/23/1981 - 05/23/2011 Smokeless Tobacco: Never Alcohol Use Standard Drinks/Week Comments No 0 (1 standard drink = 0.6 oz pur e alcohol) PHQ-2 Answer Date Recorded Total Score - Questions 1-9 0 05/2020 Sex and Gender Information Value Date Recorded Sex Assigned at Not on file Legal Sex Male 3:42 PM EMBOSSING PRESS OPERATOR MOLDED GOODS Gender Identity Not on file Sexual Orientation Not on file documented as of this encounter Miscellaneous Notes * Telephone Encounter - Fe Hope RN - 03/26/2024 7:43 AM CST Patient requesting refill of iron. Please fill if appropriate. SSING PRESS OPERATOR MOLDED GOODS documented in this encounter Plan of Treatment Upcoming Encounters Date Type Department Care Team (Late st Contact Info) Description 04/07/2024 11:10 AM EMBOSSING PRESS OPERATOR MOLDED GOODS Lab [facility] [address] [address] Lab, [facility] 04/07/2024 11:15 AM EMBOSSING PRESS OPERATOR MOLDED GOODS Clinical Support [facility] [address] [phone] Nurse, [facility] 05/12/2024 11:00 AM EMBOSSING PRESS OPERATOR MOLDED GOODS Lab [facility] [address] [address] Lab, [facility] 05/12/2024 11:15 AM EMBOSSING PRESS OPERATOR MOLDED GOODS Office Visit [facility] [address] [phone] Kev Moser MD [address] [place] [phone] 05/12/2024 11:30 AM EMBOSSING PRESS OPERATOR MOLDED GOODS Clinical Support [facility] [address] [phone] Nurse, [facility] documented as of this encounter Visit Diagnoses Diagnosis Other autoimmune hemolytic anemia (HCC)- Primary Anemia in stage 3a chronic kidney disease (HCC) Iron deficiency anemia due to sideropenic dysphagia documented in this encounter Additional Health Concerns Assessment Noted Time PHQ-9 Depression Total Score: 0 11/25/19 21 11:34 AM CDT documented as of this encounter Care Teams Vendor Quality Supervisor Relationship Specialty Start Date End Date Scott Oneill MD PCP - General Internal Medicine 04/29/17 Tavo Mishra MD [address] [place] [address] Internal Medicine 04/29/17 Kev Moser MD [address] [place] [phone] Consulting Physician Oncology 02/09/20 documented as of this encounter
--- OUTSIDE RECORDS SUMMARY | 2024-04-04 01:27 | XMS_ITS | Encounter Summary ---
Author Organization [employer] Care Team Providers Care Tmh Teacher Name Role Phone Scott Oneill MD Primary Care Provider [phone] Tavo Mishra MD Unavailable [phone] Kev Moser MD Unavailable [phone] Encounter Details Date Type Department Care Team (Latest Contact Info) Description 03/10/2024 Travel Social History Tobacco Use Types Packs/Day [...] on file Legal Sex Male 3:42 PM SAFETY ENGINEER Gender Identity Not on file Sexual Orientation Not on file documented as of this encounter Functional Status * Question Answer Date of Assessment Author Little interest or pleasure in doing things Not at all 03/10/2024 11:20 AM Viji Genao LPN Feeling down, depressed, or hopeless Not at all 03/10/2024 11:20 AM Viji Genao LPN * Over the past 2 weeks, how often have you been bothered by any of the following problems? Question Answer Date of Assessment Author Patient Health Questionnaire-2 Score 0 03/10/2024 11:20 AM Theresa Genao LPN documented as of this encounter Plan of Treatment Upcoming Encounters Date Type Department Care Team (Late st Contact Info) Description 04/07/2024 11:10 AM SAFETY ENGINEER Lab [facility] [address] [phone] Lab, [facility] 04/07/2024 11:15 AM SAFETY ENGINEER Clinical Support [facility] [address] [phone] Nurse, [facility] 05/12/2024 11:00 AM SAFETY ENGINEER Lab [facility] [address] [phone] Lab, [facility] 05/12/2024 11:15 AM SAFETY ENGINEER Office Visit [facility] [address] [phone] Kev Moser MD [address] [place] [phone] 05/12/2024 11:30 AM SAFETY ENGINEER Clinical Support [facility] [address] [phone] Nurse, [facility] documented as of this encounter Visit Diagnoses Not on filedocumented in this encounter Additional Health Concerns Assessment Noted Time PHQ-9 Depression Total Score: 0 11/25/19 11:34 AM CDT documented as of this encounter Care Teams Tmh Teacher Relationship Specialty Start Date End Date Scott Oneill MD PCP - General Internal Medicine 04/29/17 Tavo Mishra MD [address] [phone] Internal Medicine 04/29/17 Kev Moser MD [address] [place] [phone] Consulting Physician Oncology 02/09/20 documented as of this encounter
--- OUTSIDE RECORDS SUMMARY | 2024-04-04 01:27 | XMS_ITS | Encounter Summary ---
Author Organization [employer] Care Team Providers Care Motel Front Desk Clerk Name Role Phone Scott Oneill MD Primary Care Provider [phone] Tavo Mishra MD Unavailable [phone] Kev Moser MD Unavailable [phone] Encounter Details Date Type Department Care Team (Latest Contact Info) Description 01/06/2024 Travel Social History Tobacco Use Types Packs/Day Years Used Date Smoking Tobacco: Former Cigarettes 1 30 0 05/23/1981 - 05/23/2011 Smokeless Tobacco: Never Alcohol Use Standard Drinks/Week Comments No 0 (1 standard drink = 0.6 oz pur e alcohol) PHQ-2 Answer Date Recorded Total Score - Questions 1-9 0 12/05/2020 Sex and Gender Information Value Date Recorded Sex Assigned at Not on file Legal Sex Male 3:42 PM CNC SERVICE TECHNICIAN Gender Identity Not on file Sexual Orientation Not on file documented as of this encounter Plan of Treatment Upcoming Encounters Date Type Department Care Team (Late st Contact Info) Description 04/07/2024 11:10 AM CNC SERVICE TECHNICIAN Lab [facility] [address] [phone] Lab, [facility] 04/07/2024 11:15 AM CNC SERVICE TECHNICIAN Clinical Support [facility] [address] [phone] Nurse, [facility] 05/12/2024 11:00 AM CNC SERVICE TECHNICIAN Lab [facility] [address] [phone] Lab, [facility] 05/12/2024 11:15 AM CNC SERVICE TECHNICIAN Office Visit [facility] [address] [phone] Kev Moser MD [address] [place] [phone] 05/12/2024 11:30 AM CNC SERVICE TECHNICIAN Clinical Support [facility] [address] [phone] Nurse, [facility] documented as of this encounter Visit Diagnoses Not on filedocumented in this encounter Additional Health Concerns Assessment Noted Time PHQ-9 Depression Total Score: 0 11/25/19 21 11:34 AM CDT documented as of this encounter Care Teams Motel Front Desk Clerk Relationship Specialty Start Date End Date Scott Oneill MD PCP - General Internal Medicine 04/29/17 Tavo Mishra MD [address] [address] Internal Medicine 04/29/17 Kev Moser MD [address] [place] [phone] Consulting Physician Oncology 02/09/20 documented as of this encounter
--- OUTSIDE RECORDS SUMMARY | 2024-04-04 01:27 | XMS_ITS | Encounter Summary ---
Author Organization [email or web address] Care Team Providers Care Trade Union Secretary Name Role Phone Scott Oneill MD Primary Care Provider [phone] Tavo Mishra MD Unavailable [phone] Gilmer Barnard MD Unavailable [phone] Kev Moser MD Unavailable [phone] Encounter Details Date Type Department Care Team (Latest Contact Info) Description 11/19/2023 Travel Social History Tobacco Use Types Packs/Day [...] on file Legal Sex Male 3:42 PM COMMUNICATIONS DESIGNER Gender Identity Not on file Sexual Orientation Not on file documented as of this encounter Functional Status * Question Answer Date of Assessment Author Little interest or pleasure in doing things Not at all 11/19/2023 10:49 AM Rhonda Wood CMA Feeling down, depressed, or hopeless Not at all 11/19/2023 10:49 AM Rhonda Wood CMA * Over the past 2 weeks, how often have you been bothered by any of the following problems? Question Answer Date of Assessment Author Patient Health Questionnaire -2 Score 0 11/19/2023 10:49 AM Rhonda Wood GARDEN CONSULTANT documented as of this encounter Plan of Treatment Upcoming Encounters Date Type Department Care Team (Late st Contact Info) Description 04/07/2024 11:10 AM COMMUNICATIONS DESIGNER Lab [facility] [address] [phone] Lab, [facility] 04/07/2024 11:15 AM COMMUNICATIONS DESIGNER Clinical Support [facility] [address] [phone] Nurse, [facility] 05/12/2024 11:00 AM COMMUNICATIONS DESIGNER Lab [facility] [address] [phone] Lab, [facility] 05/12/2024 11:15 AM COMMUNICATIONS DESIGNER Office Visit [facility] [address] [phone] Kev Moser MD [address] [place] [phone] 05/12/2024 11:30 AM COMMUNICATIONS DESIGNER Clinical Support [facility] [address] [phone] Nurse, [facility] documented as of this encounter Visit Diagnoses Not on filedocumented in this encounter Additional Health Concerns Assessment Noted Time PHQ-9 Depression Total Score: 0 11/25/19 21 11:34 AM CDT documented as of this encounter Care Teams Trade Union Secretary Relationship Specialty Start Date End Date Scott Oneill MD PCP - General Internal Medicine 04/29/17 Tavo Mishra MD [address] [place] [address] Internal Medicine 04/29/17 Gilmer Barnard MD [address] [place] [address] Consulting Physician Internal Medicine 08/28/17 4 Kev Moser MD [address] [place] [phone] Consulting Physician Oncology 02/09/20 documented as of this encounter
--- OUTSIDE RECORDS SUMMARY | 2024-04-04 01:27 | XMS_ITS | Encounter Summary ---
Author Organization [facility] Address [address] [place] [address] Phone Care Team Providers Care Ladle Liner Helper Name Role Phone Scott Oneill MD Primary Care Provider Tavo Mishra MD Unavailable [phone] Gilmer Barnard MD Unavailable [phone] Kev Moser MD Unavailable [phone] Encounter Details Date Type Department Care Team (Late st Contact Info) Description 11/19/2023 Telephone [facility] [place] [address] [place] [address] Maricruz Shin, LINE TESTER, LINE WALKER [address] [place] [address] Social History Tobacco Use Types Packs/Day Years [...] on file Legal Sex Male 3:42 PM ORE MINER BLASTING Gender Identity Not on file Sexual Orientation Not on file documented as of this encounter Functional Status * Question Answer Date of Assessment Author Little interest or pleasure in doing things Not at all 11/19/2023 10:49 AM CDT Rhonda Manrique CMA Feeling down, depressed, or hopeless Not at all 11/19/2023 10:49 AM CDT Rhonda Manrique CMA * Over the past 2 weeks, how often have you been bothered by any of the following problems? Question Answer Date of Assessment Author Patient Health Questionnaire -2 Score 0 11/19/2023 10:49 AM CDT Rhonda Manrique CMA documented as of this encounter Miscellaneous Notes * Telephone Encounter - Joselyn Quiroz RN - 11/20/2023 10:51 AM CDT Spoke with pt. Pt states he tries to remember to take his Tums BID but sometimes he forgets. * Telephone Encounter - Polly Botello RN - 11/19/2023 4:37 PM CDT ----- Message from Joy Shin sent at 11/19/2023 3:46 PM CDT ----- Please make sure patient still taking Tums 1000mg (2 tabs) BID, thanks! documented in this encounter Plan of Treatment Upcoming Encounters Date Type Department Care Team (Late st Contact Info) Description 04/07/2024 11:10 AM ORE MINER BLASTING Lab [facility] [address] [address] Lab, [facility] 04/07/2024 11:15 AM ORE MINER BLASTING Clinical Support [facility] [address] [phone] [facility] 05/12/2024 11:00 AM ORE MINER BLASTING Lab [facility] [address] [address] Lab, [facility] 05/12/2024 11:15 AM ORE MINER BLASTING Office Visit [facility] [address] [phone] Kev Moser MD [address] [place] [phone] 05/12/2024 11:30 AM ORE MINER BLASTING Clinical Support [facility] [address] [phone] Nurse, [facility] documented as of this encounter Visit Diagnoses Not on filedocumented in this encounter Additional Health Concerns Assessment Noted Time PHQ-9 Depression Total Score: 0 11/25/19 21 11:34 AM CDT documented as of this encounter Care Teams Ladle Liner Helper Relationship Specialty Start Date End Date Scott Oneill MD PCP - General Internal Medicine 04/29/17 Tavo Mishra MD [address] [address] Internal Medicine 04/29/17 Gilmer Barnard MD [address] [phone] Consulting Physician Internal Medicine 08/28/17 4 Kev Moser MD [address] [place] [phone] Consulting Physician Oncology 02/09/20 documented as of this encounter
--- OUTSIDE RECORDS SUMMARY | 2024-04-04 01:27 | XMS_ITS | Encounter Summary ---
Author Organization [facility] Address [address] [place] [address] Phone Care Team Providers Care Lead Portfolio Manager Name Role Phone Scott Oneill MD Primary Care Provider [phone] Tavo Mishra MD Unavailable [phone] Kev Moser MD Unavailable [phone] Reason for Visit * Reason Comments Follow-up Encounter Details Date Type Department Care Team (Late st Contact Info) Description 03/10/2024 11:15 AM FRACTIONATING STILL OPERATOR Office Visit [facility] [place] [address] [place] [address] Tanvi Tobar, MANAGER MORTGAGE, TILE MOLDER HAND [address] [place] [address], [address] [place] [address] Anemia in stage 3a chronic kidney disease (HCC) (Primary Dx); Stage 3a chronic kidney disease (HCC); Vitamin B 12 deficiency Social History Tobacco Use Types Packs/Day Years Used Date Smoking Tobacco: Former Cigarettes 1 30 0 05/23/1981 - 05/23/2011 Smokeless Tobacco: Never Tobacco Cessation:Counseling Given: Not Answered Alcohol Use Standard Drinks/Week Comments No 0 (1 standard drink = 0.6 oz pur e alcohol) PHQ-2 Answer Date Recorded Total Score - Questions 1-9 0 12/05/2020 Sex and Gender Information Value Date Recorded Sex Assigned at Not on file Legal Sex Male 3:42 PM FRACTIONATING STILL OPERATOR Gender Identity Not on file Sexual Orientation Not on file documented as of this encounter Last Filed Vital Signs Vital Sign Reading Time Taken Comments Blood Pressure 120/76 03/10/2024 11:21 AM FRACTIONATING STILL OPERATOR Pulse 68 03/10/2024 11:21 AM FRACTIONATING STILL OPERATOR Temperature 36.9 ??C (98.5 ??F) 03/10/2024 11:[address] Respiratory Rate 18 03/10/2024 11:21 AM FRACTIONATING STILL OPERATOR Oxygen Saturation 95% 03/10/2024 11:21 AM FRACTIONATING STILL OPERATOR Inhaled Oxygen Concentration - - Weight 107.5 kg (237 lb) 03/10/2024 11:21 AM FRACTIONATING STILL OPERATOR Height 165.1 cm (5' 5 ) 03/10/2024 11:21 AM FRACTIONATING STILL OPERATOR Body Mass Index 39.44 03/10/2024 11:21 AM FRACTIONATING STILL OPERATOR documented in this encounter Functional Status * Question Answer Date of Assessment Author Little interest or pleasure in doing things Not at all 03/10/2024 11:20 AM Viji Genao LPN Feeling down, depressed, or hopeless Not at all 03/10/2024 11:20 AM FRACTIONATING STILL OPERATOR Viji Tobias LPN * Over the past 2 weeks, how often have you been bothered by any of the following problems? Question Answer Date of Assessment Author Patient Health Questionnaire-2 Score 0 03/10/2024 11:20 AM Theresa Genao LPN documented as of this encounter Progress Notes * Tanvi Tobar APRN, CNP - 03/10/2024 11:15 AM CST Images from the original note were not included. Patient: Britton Nielsen Age: 69 y.o. : 1955 [facility] Encounter Date: 03/10/2024 Care Team: Current Providers PCP: Scott Oneill MD Care Team Provider: Tavo Mishra MD Care Team Provider: Kev Moser MD Encounter Provider: Tanvi Tobar APRN, CNP Referring Provider: not found Nurse Practitioner: Tanvi Tobar APRN, CNP HISTORY OF PRESENT ILLNESS: Britton returns today regarding his anemia as well as B12 deficiency. His last Aranesp injection wasgiven on 01/14/24 and his last B12 injection was given on 02/11/24. He reports doing fairly well. He still has back pain though. He still remains on CellCept which his dosages have been decreased. Roula report some bumps to his posterior neck that popped up for the last week. These are not bothersome to him. He otherwise denies any fevers, chills, night sweats, abdominal pain, chest pain, shortness of breath, or bleeding episodes. DIAGNOSIS: 1. Glomerulonephritis, sclerosing (renal biopsy 04/01/17). 2. Significant anemia with bleeding ulcer, chronic kidney disease, and patient is on Cytoxan with iron deficiency. 3. Recurrent bleeding ulcers. 4. Patient had a positive BRIANNA at an outside hospital. 5. Bilateral pulmonary emboli, bilateral lower extremity DVT (10/2017). 6. Coronary artery disease with CABG 06/2020. 7. Multiple colonic polyps. PAST TREATMENT: 1. Gastroduodenal artery embolization at [facility] 05/2017. 2. Cytoxan 100 mg daily. 3. Bone marrow biopsy 11/03/17 with normocellular marrow and maturating trilineage hematopoiesis with minimal reticulin fibrosis. Normal karyotype and NGS study. 4. EPO 40,000 units q.4 to 8 weeks (poor response, stopped on 01/2019). 5. He is off Cytoxan and prednisone, in remission for his kidney disease. 6. Annual Colonoscopy per Dr. Tubbs CURRENT TREATMENT: 1. On Eliquis b.i.d. Using samples. 2. Monthly B12 and EPO injections. 3. CellCept 500 mg b.i.d. 4. Following with Rheumatology and Pulmonology for interstitial lung disease and polyangiitis. TREATMENT GUIDELINES: Consistent with NCCN guidelines. PROGNOSIS: EXPECTED RESPONSE TO TREATMENT: EXPECTED QUALITY OF LIFE DURING TREATMENT: ECOG: PAIN: PLAN FOR PAIN: CODE STATUS: END OF LIFE: ASSESSMENT: 1. Glomerulonephritis, sclerosing (renal biopsy 04/01/17). 2. Significant anemia with bleeding ulcer, chronic kidney disease, and patient is on Cytoxan with iron deficiency. 3. Recurrent bleeding ulcers. 4. Patient had a positive BRIANNA at an outside hospital. 5. Bilateral pulmonary emboli, bilateral lower extremity DVT (10/2017). 6. Coronary artery disease with CABG 06/2020. PLAN: 1. I have reviewed most recent labs with the patient today that show white blood cells 6.3, hemoglobin 11.6, hematocrit 37, platelets 143,000. Creatinine elevated to 2.4. Iron 66 and percent iron saturation 24%. 2. No need for erythropoietin injection today as hemoglobin is 11.6. 3. Continue with B12 injections monthly. He will get this today. 4. Continue to follow with Rheumatology for CellCept immunosuppression pills. He has a followup appointment with them next week. 5. I will have the patient return to clinic in four weeks with labs and possible injection and we will see him back in eight weeks with office visit, labs, and injections at that time. I have encouraged him to call with questions or concerns in the meantime. Dr. Moser present in office. TIME SPENT: REVIEW OF SYSTEMS: See HPI; otherwise, 12-point review of systems is negative. PHYSICAL EXAM: GENERAL: Patient is awake, alert, and oriented x3. HEENT: Normocephalic, atraumatic, PERRLA, EOMI. Sclerae nonicteric, conjunctivae normal. Nasopharynx negative. Tongue normal, uvula midline, no thrush, no mucosal lesions present. NECK: Supple. No cervical, supraclavicular, or axillary lymphadenopathy. Thyroid not palpable. LUNGS: Clear to auscultation and percussion in all lung parkinson, no focal wheezes, rales, or rhonchi. HEART: Regular rhythm and rate. Normal S1, S2, no S3, S4, no murmur, or rub. ABDOMEN: No hepatosplenomegaly, masses, ascites, areas of tenderness, bruits, or hernias. EXTREMITIES: No clubbing, cyanosis, or edema. SKIN: No ecchymosis, petechiae, or rashes. NEURO: Nonfocal. MUSCULOSKELETAL: No joint tenderness or effusion. No spine tenderness. LABORATORY/PATHOLOGY/IMAGING NOTES: Laboratory evaluation reviewed per Care Everywhere. Kev Moser MD, FACP Tanvi Tobar DNP, MACHINE PACKAGE SEALER-C JT/dsp Vitals: Vitals: 03/10/24 1121 BP: 120/76 BP Location: Left Arm BP Position: Sitting BP Cuff Size: Regular Pulse: 68 Resp: 18 Temp: 98.5 ??F (36.9 ??C) TempSrc: Temporal SpO2: 95% Weight: 237 lb (107.5 kg) Height: 5' 5 (1.651 m) Body surface area is 2.22 meters squared. Body mass index is 39.44 kg/m??. Pain Score: 4 Pain Loc: Neck Allergies: No Known Allergies PMH/SgH/FH/SH: Past medical, surgical, family and social histories were reviewed at this visit. Past Medical History Positives Diagnosis Date Arthritis Bleeding ulcer Carcinoma (HCC) skin cancer of lip Hypertension Squamous cell cancer of lip Vasculitis (HCC) Past Surgical History: Procedure Laterality Date BIOPSY OF SKIN LESION lip CARDIAC SURGERY triple bypass EGD KIDNEY BIOPSY ULCER,SUTURE Family History Problem Relation Age of Onset Congestive Heart Failure Father Diabetes Sister Kidney Disease Sister Cancer Brother small cell fast moving ca, lungs to brain Family Status Relation Name Status Father (Not Specified) Sister (Not Specified) Brother (Not Specified) No partnership data on file Social History Socioeconomic History Marital status: Tobacco Use Smoking status: Former Current packs/day: 0.00 Average packs/day: 1 pack/day for 30.0 years (30.0 ttl pk-yrs) Types: Cigarettes Start date: 05/23/1981 Quit date: 05/23/2011 Years since quittin.8 Smokeless tobacco: Never Vaping Use Vaping status: Never Used Substance and Sexual Activity Alcohol use: No Drug use: No Oncology History: Oncology History No history exists. Cancer Staging: Cancer Staging No matching staging information was found for the patient. Cumulative dose Purpose/Goal Comments Lifetime Dose Tracking No doses have been documented on this patient for the following tracked chemicals: Doxorubicin, Epirubicin, Idarubicin, Daunorubicin, Mitoxantrone, Bleomycin, Ifosfamide, Methotrexate, Cyclophosphamide, Cisplatin, Carboplatin Current Medications: Outpatient Encounter Medications as of 03/10/2024 Medication Sig Dispense Refill albuterol 108 (90 Base) MCG/ACT Aerosol Solution Anoro Ellipta 62.5-25 MCG/ACT AEROSOL POWDER, BREATH ACTIVATED INHALE 1 PUFF BY MOUTH ONCE DAILY apixaban (Eliquis) 5 MG Tablet Take 1 Tablet by mouth 2 times daily. Indications: Prevention of Unwanted Clot in Veins aspirin EC 81 MG Tablet Delayed Response Take 81 mg by mouth daily. atorvastatin (LIPITOR) 40 MG Tablet calcitRIOL (ROCALTROL) 0.25 MCG Capsule Calcium Carb-Cholecalciferol (CALCIUM 600 + D PO) Take by mouth 2 times daily. cyanocobalamin 1000 MCG Tablet Take 1 tablet by mouth daily 30 Tab 0 cyclobenzaprine (FLEXERIL) 5 MG Tablet Take 5 mg by mouth. (Patient not taking: Reported on 12/03/2023) ergocalciferol (VITAMIN D) 40944 UNIT Capsule Take 50,000 Units by mouth once a week. furosemide (LASIX) 40 MG Tablet Take 40 mg by mouth daily. irbesartan (AVAPRO) 300 MG Tablet Take 300 mg by mouth daily. labetalol (NORMODYNE) 200 MG Tablet Take 200 mg by mouth 2 times daily. mycophenolate mofetil (CELLCEPT) 500 MG Tablet 1 tablet in AM and 1 in PM pantoprazole (PROTONIX) 40 MG Tablet Delayed Response TAKE 1 TABLET BY MOUTH IN THE MORNING potassium chloride SA (KLORCON M) 20 MEQ Tablet Controlled Release Take 20 mEq by mouth 2 times daily. pregabalin (LYRICA) 50 MG Capsule Take 50 mg by mouth 3 times daily. sodium bicarbonate 650 MG Tablet Take 650 mg by mouth 2 times daily. SV Iron 325 (65 Fe) MG Tablet Take 1 tablet by mouth once daily 30 Tablet 0 tadalafil (CIALIS) 20 MG Tablet TAKE 1 TABLET BY MOUTH ONCE DAILY NEEDED traMADol (ULTRAM) 50 MG Tablet 0 No facility-administered encounter medications on file as of 03/10/2024. Labs: Lab on 03/10/2024 Component Date Value Ref Range Status IRON 03/10/2024 66 50 - 212 ug/dL Final UIBC 03/10/2024 205 155 - 355 ug/dL Final TIBC 03/10/2024 271 261 - 478 ug/dl Final % Saturation 03/10/2024 24 20 - 50 % Final Reticulocyte count 03/10/2024 2.14 (H) 0.51 - 1.81 % Final RET-He 03/10/2024 29.10 28.20 - 36.60 pg Final Comment: RET-He is a direct assessment of incorporation of iron into erythrocyte hemoglobin. It provides an indirect measure of the iron available for new erythropoiesis over past 2-4 days. LDH 03/10/2024 187 140 - 271 U/L Final Glucose 03/10/2024 64 (L) 70 - 105 mg/dL Final Blood Urea Nitrogen 03/10/2024 35 (H) 7 - 25 mg/dL Final Creatinine 03/10/2024 2.4 (H) 0.7 - 1.3 mg/dL Final Sodium 03/10/2024 140 136 - 145 mEq/L Final Potassium 03/10/2024 4.6 3.5 - 5.1 mEq/L Final Chloride 03/10/2024 104 98 - 107 mEq/L Final Bicarbonate 03/10/2024 24 21 - 31 mEq/L Final Total Bilirubin 03/10/2024 0.8 0.3 - 1.0 mg/dL Final Alk. Phosphatase 03/10/2024 84 34 - 104 U/L Final Aspartate Aminotransferase 03/10/2024 10 (L) 13 - 39 U/L Final Alanine Aminotransferase 03/10/2024 10 7 - 52 U/L Final Total Protein 03/10/2024 6.5 6.4 - 8.9 g/dL Final Albumin 03/10/2024 4.3 3.5 - 5.7 g/dL Final Calcium 03/10/2024 8.7 8.6 - 10.3 mg/dL Final Anion Gap 03/10/2024 16.6 (H) 7.0 - 15.0 mEq/L Final Globulin 03/10/2024 2.2 2.0 - 3.5 g/dL Final EGFR 03/10/2024 28 (L) >60 ml/min/1.73m2 Final Comment: This eGFR is calculated using 2020 CKD-EPI Creatinine equation without race modifier based on the NKF-ASN task force recommendations WBC 03/10/2024 6.3 4.0 - 10.0 10*3/uL Final HGB 03/10/2024 11.6 (L) 13.7 - 17.5 g/dL Final HCT 03/10/2024 37.0 (L) 40.1 - 51.0 % Final PLT 03/10/2024 143 (L) 163 - 369 10*3/uL Final MPV 03/10/2024 9.9 9.4 - 12.4 fL Final RBC 03/10/2024 4.09 (L) 4.63 - 6.08 10*6/uL Final MCV 03/10/2024 91 79 - 95 fL Final MCH 03/10/2024 28.4 25.6 - 32.2 pg Final MCHC 03/10/2024 31.4 (L) 32.2 - 36.5 g/dL Final RDW 03/10/2024 14.1 11.6 - 14.4 % Final Absolute Neutrophil Count 03/10/2024 4,836 cells/uL Final Absolute Seg Count 03/10/2024 4,836 1,440 - 6,600 cells/uL Final Absolute Lymph Count 03/10/2024 691 (L) 760 - 4,000 cells/uL Final Absolute Thayer Count 03/10/2024 628 160 - 1,200 cells/uL Final Absolute Eos Count 03/10/2024 63 0 - 300 cells/uL Final Absolute Baso Count 03/10/2024 63 0 - 100 cells/uL Final Segmented Neutrophils 03/10/2024 77 (H) 36 - 66 % Final Lymphocytes 03/10/2024 11 (L) 19 - 40 % Final Monocytes 03/10/2024 10 4 - 12 % Final Eosinophils 03/10/2024 1 0 - 3 % Final Basophils 03/10/2024 1 0 - 1 % Final WBC Estimate 03/10/2024 Normal Final Platelet Estimate 03/10/2024 Low Final RBC Morphology 03/10/2024 Normal Final Cosigned by Kev Moser MD at 03/16/2024 10:53 AM FRACTIONATING STILL OPERATOR TIONATING STILL OPERATOR TIONATING STILL OPERATOR TIONATING STILL OPERATOR documented in this encounter Plan of Treatment Upcoming Encounters Date Type Department Care Team (Late st Contact Info) Description 04/07/2024 11:10 AM FRACTIONATING STILL OPERATOR Lab [facility] [address] [address] Lab, Gricelda Lopes MA 04/07/2024 11:15 AM FRACTIONATING STILL OPERATOR Clinical Support [facility] [address] [phone] Nurse, [facility] 05/12/2024 11:00 AM FRACTIONATING STILL OPERATOR Lab [facility] [address] [phone] Lab, [facility] 05/12/2024 11:15 AM FRACTIONATING STILL OPERATOR Office Visit [facility] [address] [phone] Kev Moser MD [address] [place] [phone] 05/12/2024 11:30 AM FRACTIONATING STILL OPERATOR Clinical Support [facility] [address] [phone] Nurse, [facility] Scheduled Orders Name Type Priority Associated Diagnoses Orde r Schedule COMPLETE BLOOD COUNT (CBC) WITH DIFF Lab Routine Anemia in stage 3a chronic kidney disease (HCC) Stage 3a chronic kidney disease (HCC) Expected: 04/07/2024 (Approximate), Expires: 04/14/2024 COMPLETE BLOOD COUNT (CBC) WITH DIFF Lab Routine Anemia in stage 3a chronic kidney disease (HCC) Stage 3a chronic kidney disease (HCC) Expected: 05/05/2024, Expires: 07/09/2024 CMP (COMPREHENSIVE METABOLIC PANEL) Lab Routine Anemia in stage 3a chronic kidney disease (HCC) Stage 3a chronic kidney disease (HCC) Expected: 05/05/2024, Expires: 06/08/2024 VITAMIN B12 Lab Routine Anemia in stage 3a chronic kidney disease (HCC) Stage 3a chronic kidney disease (HCC) Expected: 05/05/2024, Expires: 07/09/2024 documented as of this encounter Visit Diagnoses Diagnosis Anemia in stage 3a chronic kidney disease (HCC)- Primary Stage 3a chronic kidney disease (HCC) Vitamin B 12 deficiency Other B-complex deficiencies documented in this encounter Additional Health Concerns Assessment Noted Time PHQ-9 Depression Total Score: 0 11/25/19 21 11:34 AM CDT documented as of this encounter Care Teams Lead Portfolio Manager Relationship Specialty Start Date End Date Scott Oneill MD PCP - General Internal Medicine 04/29/17 Tavo Mishra MD [address] [address] Internal Medicine 04/29/17 Kev Moser MD [address] [place] [phone] Consulting Physician Oncology 02/09/20 documented as of this encounter
--- OUTSIDE RECORDS SUMMARY | 2024-04-04 01:27 | XMS_ITS | Encounter Summary ---
Author Organization [facility] Address [address] [place] [address] Phone Care Team Providers Care Housekeeping Associate Name Role Phone Scott Oneill MD Primary Care Provider Tavo Mishra MD Unavailable [phone] Gilmer Barnard MD Unavailable [phone] Kev Moser MD Unavailable Reason for Visit * Reason Comments Medication Refill Encounter Details Date Type Department Care Team (Late st Contact Info) Description 11/02/2023 Refill [facility] [address] [phone] Kev Moesr MD [address] [place] [phone] Medication Refill Social History Tobacco Use [...] on file Legal Sex Male 3:42 PM SOAKING ROOM OPERATOR Gender Identity Not on file Sexual Orientation Not on file documented as of this encounter Miscellaneous Notes * Telephone Encounter - Xochitl Campos RN - 11/03/2023 8:47 AM CDT Refill request from pharmacy. Please fill if appropriate. documented in this encounter Plan of Treatment Upcoming Encounters Date Type Department Care Team (Late st Contact Info) Description 04/07/2024 11:10 AM SOAKING ROOM OPERATOR Lab [facility] [address] [address] Lab, [facility] 04/07/2024 11:15 AM SOAKING ROOM OPERATOR Clinical Support [facility] [address] [phone] Nurse, [facility] 05/12/2024 11:00 AM SOAKING ROOM OPERATOR Lab [facility] [address] [address] Lab, [facility] 05/12/2024 11:15 AM SOAKING ROOM OPERATOR Office Visit [facility] [address] [phone] Kev Moser MD [address] [place] [phone] 05/12/2024 11:30 AM SOAKING ROOM OPERATOR Clinical Support [facility] [address] [phone] Nurse, [facility] documented as of this encounter Visit Diagnoses Not on filedocumented in this encounter Additional Health Concerns Assessment Noted Time PHQ-9 Depression Total Score: 0 11/25/19 21 11:34 AM CDT documented as of this encounter Care Teams Housekeeping Associate Relationship Specialty Start Date End Date Scott Oneill MD PCP - General Internal Medicine 04/29/17 Tavo Mishra MD [address] [address] Internal Medicine 04/29/17 Gilmer Barnard MD [address] [place] [address] Consulting Physician Internal Medicine 08/28/17 4 Kev Moser MD [address] [place] [phone] Consulting Physician Oncology 02/09/20 documented as of this encounter
--- OUTSIDE RECORDS SUMMARY | 2024-04-04 01:27 | XMS_ITS | Encounter Summary ---
Author Organization [facility] Care Team Providers Care Caustic Pump Operator Name Role Phone Scott Oneill MD Primary Care Provider [phone] Tavo Mishra MD Unavailable Gilmer Barnard MD Unavailable [phone] Kev Moser MD Unavailable [phone] Encounter Details Date Type Department Care Team (Latest Contact Info) Description 10/22/2023 Travel Social History Tobacco Use Types Packs/Day [...] on file Legal Sex Male 3:42 PM CONTROL ROOM AGENT Gender Identity Not on file Sexual Orientation Not on file documented as of this encounter Functional Status * Question Answer Date of Assessment Author Little interest or pleasure in doing things Not at all 10/22/2023 10:44 AM Rhonda Wood CMA Feeling down, depressed, or hopeless Not at all 10/22/2023 10:44 AM Rhonda Wood CMA * Over the past 2 weeks, how often have you been bothered by any of the following problems? Question Answer Date of Assessment Author Patient Health Questionnaire -2 Score 0 10/22/2023 10:44 AM Rhonda Wood ENVELOPE STAMPING MACHINE OPERATOR documented as of this encounter Plan of Treatment Upcoming Encounters Date Type Department Care Team (Late st Contact Info) Description 04/07/2024 11:10 AM CONTROL ROOM AGENT Lab [facility] [address] [phone] Lab, [facility] 04/07/2024 11:15 AM CONTROL ROOM AGENT Clinical Support [facility] [address] [phone] Nurse, [facility] 05/12/2024 11:00 AM CONTROL ROOM AGENT Lab [facility] [address] [phone] Lab, [facility] 05/12/2024 11:15 AM CONTROL ROOM AGENT Office Visit [facility] [address] [phone] Kev Moser MD [address] [place] [phone] 05/12/2024 11:30 AM CONTROL ROOM AGENT Clinical Support [facility] [address] [phone] Nurse, [facility] documented as of this encounter Visit Diagnoses Not on filedocumented in this encounter Additional Health Concerns Assessment Noted Time PHQ-9 Depression Total Score: 0 11/25/19 21 11:34 AM CDT documented as of this encounter Care Teams Caustic Pump Operator Relationship Specialty Start Date End Date Scott Oneill MD PCP - General Internal Medicine 04/29/17 Tavo Mishra MD [address] [place] [address] Internal Medicine 04/29/17 Gilmer Barnard MD [address] [place] [address] Consulting Physician Internal Medicine 08/28/17 4 Kev Moser MD [address] [place] [phone] Consulting Physician Oncology 02/09/20 documented as of this encounter
--- OUTSIDE RECORDS SUMMARY | 2024-04-04 01:27 | XMS_ITS | Encounter Summary ---
Author Organization [facility] Address [address] [place] [address] Phone Care Team Providers Care Package Dye Stand Loader Name Role Phone Scott Oneill MD Primary Care Provider Tavo Mishra MD Unavailable [phone] Gilmer Barnard MD Unavailable [phone] Kev Moser MD Unavailable [phone] Encounter Details Date Type Department Care Team (Late st Contact Info) Description 10/22/2023 11:00 AM CDT Lab [facility] [address] [phone] Lab, [facility] Other autoimmune hemolytic anemia (HCC) Social History Tobacco Use Types Packs/Day Years [...] on file 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 Question Answer Date of Assessment Author Patient Health Questionnaire -2 Score 0 10/22/2023 10:44 AM CDT Rhonda Manrique CMA documented as of this encounter Plan of Treatment Upcoming Encounters Date Type Department Care Team (Late st Contact Info) Description 04/07/2024 11:10 AM NURSING UNIT MANAGER Lab [facility] [address] [phone] Lab, [facility] 04/07/2024 11:15 AM NURSING UNIT MANAGER Clinical Support [facility] [address] [phone] Nurse, [facility] 05/12/2024 11:00 AM NURSING UNIT MANAGER Lab [facility] [address] [phone] Lab, [facility] 05/12/2024 11:15 AM NURSING UNIT MANAGER Office Visit [facility] [address] [phone] Kev Moser MD [address] [place] [phone] 05/12/2024 11:30 AM NURSING UNIT MANAGER Clinical Support [facility] [address] [phone] Nurse, [facility] documented as of this encounter Procedures Procedure Name Priority Date/Time Associated Diagnosis Comments LACTATE DEHYDROGENASE (LD) Routine 10/22/2023 10:36 AM CDT Other autoimmune hemolytic anemia (HCC) CMP (COMPREHENSIVE METABOLIC PANEL) Routine 10/22/2023 10:36 AM CDT Other autoimmune hemolytic anemia (HCC) COMPLETE BLOOD COUNT (CBC) WITH DIFF Routine 10/22/2023 10:36 AM CDT Other autoimmune hemolytic anemia (HCC) documented in this encounter Results * LACTATE DEHYDROGENASE (LD) (10/22/2023 10:36 AM CDT) LDH 184 140 - 271 U/L [facility] Blood 10/22/2023 10:3 6 AM CDT Narrative [facility] - 10/22/2023 11:40 AM CDT Release to patient->Immediate Kev Moser MD CHEMISTRY ORDERABLES Final Result [facility] [place] [address], * (ABNORMAL) COMPLETE BLOOD COUNT (CBC) WITH DIFF (10/22/2023 10:36 AM CDT) WBC 5.5 4.0 - 10.0 10*3/uL [facility] HGB 9.1(L) 13.7 - 17.5 g/dL [facility] NUT ROASTER [facility] HCT 29.3(L) 40.1 - 51.0 % [facility] PLT 108(L) 163 - 369 10*3/uL [facility] MPV 9.6 9.4 - 12.4 fL [facility] RBC 3.17(L) 4.63 - 6.08 10*6/uL [facility] MCV 92 79 - 95 fL [facility] MCH 28.7 25.6 - 32.2 pg [facility] MCHC 31.1(L) 32.2 - 36.5 g/dL [facility] RDW 15.5(H) 11.6 - 14.4 % [facility] Absolute Neutrophil Count 3,953 cells/uL [facility] Absolute Seg Count 3,953 1,440 - 6,600 cells/uL [facility] Absolute Lymph Count 878 760 - 4,000 cells/uL [facility] Absolute [place] Count 439 160 - 1,200 cells/uL [facility] Absolute Eos Count 165 0 - 300 cells/uL [facility] NUT ROASTER [facility] Absolute Baso Count 55 0 - 100 cells/uL [facility] Segmented Neutrophils 72(H) 36 - 66 % [facility] Lymphocytes 16(L) 19 - 40 % [facility] Monocytes 8 4 - 12 % [facility] Eosinophils 3 0 - 3 % [facility] Basophils 1 0 - 1 % [facility] WBC Estimate Normal [facility] Platelet Estimate Low [facility] NUT ROASTER [facility] RBC Morphology Abnormal CANCE R NUT ROASTER [facility] Anisocytosis 1+ [facility] NUT ROASTER [facility] Blood 10/22/2023 10:3 6 AM CDT Narrative [facility] - 10/22/2023 1:38 PM CDT Release to patient->Immediate us Kev Moser MD HEMATOLOGY ORDERABLES Final Result Performing Organization Address City/State/[facility] Co de Phone Number [facility] [place] [address], * (ABNORMAL) CMP (COMPREHENSIVE METABOLIC PANEL) (10/22/2023 10:36 AM CDT) Glucose 99 70 - 105 mg/dL [facility] Blood Urea Nitrogen 36(H) 7 - 25 mg/dL [facility] Creatinine 2.5(H) 0.7 - 1.3 mg/dL [facility] Sodium 142 136 - 145 mEq/L [facility] Potassium 5.0 3.5 - 5.1 mEq/L [facility] Chloride 113(H) 98 - 107 mEq/L [facility] Bicarbonate 27 21 - 31 mEq/L [facility] Total Bilirubin 0.8 0.3 - 1.0 mg/dL [facility] Alk. Phosphatase 78 34 - 104 U/L [facility] Aspartate Aminotransferase 8(L) 13 - 39 U/L [facility] Alanine Aminotransferase 9 7 - 52 U/L [facility] Total Protein 5.6(L) 6.4 - 8.9 g/dL [facility] Albumin 3.8 3.5 - 5.7 g/dL [facility] Calcium 6.6(LL) 8.6 - 10.3 mg/dL [facility] Comment: Critical Result reported to Josephine Aleman on 10/22/2023 12:00 by ? Klaudia Henry. Results were read back to caller. Anion Gap 7.0 7.0 - 15.0 mEq/L [facility] Globulin 1.8(L) 2.0 - 3.5 g/dL [facility] EGFR 27(L) >60 ml/min/1. 73m2 [facility] Comment: This eGFR is calculated using 2020 CKD-EPI Creatinine equation without race modifier based on the NKF-ASN task force recommendations Blood 10/22/2023 10:3 6 AM CDT Narrative [facility] - 10/22/2023 12:00 PM CDT Release to patient->Immediate IS THE PATIENT REQUIRED TO BE FASTING FOR 8 HOURS?->No Kev Moser MD CHEMISTRY ORDERABLES Final Result [facility] [place] [address], documented in this encounter Visit Diagnoses Diagnosis Other autoimmune hemolytic anemia (HCC) documented in this encounter Additional Health Concerns Assessment Noted Time PHQ-9 Depression Total Score: 0 11/25/19 21 11:34 AM CDT documented as of this encounter Care Teams Package Dye Stand Loader Relationship Specialty Start Date End Date Scott Oneill MD PCP - General Internal Medicine 04/29/17 Tavo Mishra MD [address] [facility] [address] [place] [address] Internal Medicine 04/29/17 Gilmer Barnard MD [address] [address] Consulting Physician Internal Medicine 08/28/17 4 Kev Moser MD [address] [place] [phone] Consulting Physician Oncology 02/09/20 documented as of this encounter
--- OUTSIDE RECORDS SUMMARY | 2024-04-04 01:27 | XMS_ITS | Encounter Summary ---
Author Organization [facility] Address [address] [place] [address] Phone Care Team Providers Care Service Secretary Name Role Phone Scott Oneill MD Primary Care Provider [phone] Tavo Mishra MD Unavailable [phone] Gilmer Barnard MD Unavailable [phone] Kev Moser MD Unavailable [phone] Reason for Visit * Reason Comments Therapeutic Injection * Episode Based Medications (Routine) - Authorized Specialty Diagnoses / Procedures Referred By Contamy t Referred To Contact Diagnoses Vitamin B 12 deficiency Procedures VITAMIN B12 INJ RANGE DOSE 1-1,000 MCG Kev Moser MD [address] [place] [phone] Phone: tel: fax: [facility] [address] [address] Phone: tel: fax: Referral ID Status Reason Start Date Expiration Date V isits Requested Visits Authorized [id number] Authorized 03/06/2022 03/30/2027 1 1 Encounter Details Date Type Department Care Team (Latest Contact Info) Description 10/22/2023 3:15 PM CDT Clinical Support [facility] [address] [phone] Nurse, [facility] Vitamin B 12 deficiency (Primary Dx) Social History Tobacco Use Types Packs/Day Years [...] on file 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 Question Answer Date of Assessment Author Patient Health Questionnaire -2 Score 0 10/22/2023 10:44 AM SILVERIOT Rhonda Manrique CMA documented as of this encounter Progress Notes * Irina Pimentel CMA - 10/22/2023 3:15 PM CDT Patient tolerated B12 injection well with no complaints. Bandaid applied. Patient's performance status has not changed since arrival to clinic. Patient discharged per AMBULATORY UNACCOMPANIED. documented in this encounter Plan of Treatment Upcoming Encounters Date Type Department Care Team (Late st Contact Info) Description 04/07/2024 11:10 AM FLATWORK PRESSER Lab [facility] [address] [phone] Lab, [facility] 04/07/2024 11:15 AM FLATWORK PRESSER Clinical Support [facility] [address] [phone] Nurse, [facility] 05/12/2024 11:00 AM FLATWORK PRESSER Lab [facility] [address] [phone] Lab, [facility] 05/12/2024 11:15 AM FLATWORK PRESSER Office Visit [facility] [address] [phone] Kev Moser MD [address] [place] [phone] 05/12/2024 11:30 AM FLATWORK PRESSER Clinical Support [facility] [address] [phone] Nurse, [facility] documented as of this encounter Visit Diagnoses Diagnosis Vitamin B 12 deficiency- Primary Other B-complex deficiencies documented in this encounter Administered Medications Inactive Administered Medications - up to 3 most recent administrations Medication Order MAR Action Action Date Dose Rate Site cyanocobalamin (VITAMIN B-12) injection 1,000 mcg 1,000 mcg, Subcutaneous, ONCE, 1 dose, On Fri10/22/23 at 1200, To be given 1 week prior to Chemotherapy. Route IM or SUBQ.Indications:Vitam in B 12 deficiency Given 10/22/2023 11:29 AM CDT 1,000 mcg Left Lateral Upper Arm documented in this encounter Additional Health Concerns Assessment Noted Time PHQ-9 Depression Total Score: 0 11/25/19 21 11:34 AM CDT documented as of this encounter Care Teams Service Secretary Relationship Specialty Start Date End Date Scott Oneill MD PCP - General Internal Medicine 04/29/17 Tavo Mishra MD [address] [place] [phone] Internal Medicine 04/29/17 Gilmer Barnard MD [address] [place] [phone] Consulting Physician Internal Medicine 08/28/17 4 Kev Moser MD [address] [place] [phone] Consulting Physician Oncology 02/09/20 documented as of this encounter
--- OUTSIDE RECORDS SUMMARY | 2024-04-04 01:27 | XMS_ITS | Encounter Summary ---
Author Organization [facility] Care Team Providers Care Photoengraving Apprentice Name Role Phone Scott Oneill MD Primary Care Provider [phone] Tavo Mishra MD Unavailable Gilmer Barnard MD Unavailable [phone] Kev oMser MD Unavailable [phone] Encounter Details Date Type Department Care Team (Latest Contact Info) Description 12/03/2023 Travel Social History Tobacco Use Types Packs/Day Years Used Date Smoking Tobacco: Former Cigarettes 1 30 0 05/23/1981 - 05/23/2011 Smokeless Tobacco: Never Alcohol Use Standard Drinks/Week Comments No 0 (1 standard drink = 0.6 oz pur e alcohol) PHQ-2 Answer Date Recorded Total Score - Questions 1-9 0 1205/2020 Sex and Gender Information Value Date Recorded Sex Assigned at Not on file Legal Sex Male 3:42 PM LEGAL 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 Question Answer Date of Assessment Author Patient Health Questionnaire -2 Score 0 12/03/2023 10:53 AM Rhonda Wood METALS SALES REPRESENTATIVE documented as of this encounter Plan of Treatment Upcoming Encounters Date Type Department Care Team (Late st Contact Info) Description 04/07/2024 11:10 AM LEGAL TRANSCRIBER Lab [facility] [address] [phone] Lab, [facility] 04/07/2024 11:15 AM LEGAL TRANSCRIBER Clinical Support [facility] [address] [phone] Nurse, [facility] 05/12/2024 11:00 AM LEGAL TRANSCRIBER Lab [facility] [address] [phone] Lab, [facility] 05/12/2024 11:15 AM LEGAL TRANSCRIBER Office Visit [facility] [address] [phone] Kev Moser MD [address] [place] [phone] 05/12/2024 11:30 AM LEGAL TRANSCRIBER Clinical Support [facility] [address] [phone] Nurse, [facility] documented as of this encounter Visit Diagnoses Not on filedocumented in this encounter Additional Health Concerns Assessment Noted Time PHQ-9 Depression Total Score: 0 11/25/19 21 11:34 AM CDT documented as of this encounter Care Teams Photoengraving Apprentice Relationship Specialty Start Date End Date Scott Oneill MD PCP - General Internal Medicine 04/29/17 Tavo Mishra MD [address] [place] [address] Internal Medicine 04/29/17 Gilmer Barnard MD [address] [place] [address] Consulting Physician Internal Medicine 08/28/17 4 Kev Moser MD [address] [place] [phone] Consulting Physician Oncology 02/09/20 documented as of this encounter
--- OUTSIDE RECORDS SUMMARY | 2024-04-04 01:27 | XMS_ITS | Encounter Summary ---
Author Organization [facility] Address [address] [place] [address] Phone Care Team Providers Care Industrial Equipment Mechanic Name Role Phone Scott Oneill MD Primary Care Provider [phone] Tavo Mishra MD Unavailable [phone] Gilmer Barnard MD Unavailable [phone] Kev Moser MD Unavailable [phone] Reason for Visit * Reason Comments Medication Refill Encounter Details Date Type Department Care Team (Late st Contact Info) Description 12/05/2023 Refill [facility] [place] [address] [place] [phone] Sindi Qiu, NETWORKER, PRINTING GREY CLOTH TENDER [address] [place] [address] Medication Refill Social History Tobacco Use Types [...] on file 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 Refill if appropriate. documented in this encounter Plan of Treatment Upcoming Encounters Date Type Department Care Team (Late st Contact Info) Description 04/07/2024 11:10 AM SOFT BOARDER Lab [facility] [address] [phone] Lab, [facility] 04/07/2024 11:15 AM SOFT BOARDER Clinical Support [facility] [address] [phone] Nurse, [facility] 05/12/2024 11:00 AM SOFT BOARDER Lab [facility] [address] [phone] Lab, [facility] 05/12/2024 11:15 AM SOFT BOARDER Office Visit [facility] [address] [phone] Kev Moser MD [address] [place] [phone] 05/12/2024 11:30 AM SOFT BOARDER Clinical Support [facility] [address] [phone] Nurse, [facility] documented as of this encounter Visit Diagnoses Not on filedocumented in this encounter Additional Health Concerns Assessment Noted Time PHQ-9 Depression Total Score: 0 11/25/19 21 11:34 AM CDT documented as of this encounter Care Teams Industrial Equipment Mechanic Relationship Specialty Start Date End Date Scott Oneill MD PCP - General Internal Medicine 04/29/17 Tavo Mishra MD [address] [address] Internal Medicine 04/29/17 Gilmer Barnard MD [address] [place] [address] Consulting Physician Internal Medicine 08/28/17 4 Kev Moser MD [address] [place] [phone] Consulting Physician Oncology 02/09/20 documented as of this encounter
--- OUTSIDE RECORDS SUMMARY | 2024-04-04 01:27 | XMS_ITS | Encounter Summary ---
Author Organization [facility] Address [address] [place] [address] Phone Care Team Providers Care Custodial Services Manager Name Role Phone Scott Oneill MD Primary Care Provider Tavo Mishra MD Unavailable [phone] Gilmer Barnard MD Unavailable [phone] Kev Moser MD Unavailable [phone] Encounter Details Date Type Department Care Team (Late st Contact Info) Description 11/04/2023 Telephone [facility] [address] [place] [address] Kev Moser MD [address] [place] [phone] Social History Tobacco Use Types Packs/Day Years [...] on file 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 Gender Identity Not on file Sexual Orientation Not on file documented as of this encounter Plan of Treatment Upcoming Encounters Date Type Department Care Team (Late st Contact Info) Description 04/07/2024 11:10 AM RETAIL WIRELESS ASSOCIATE Lab [facility] [address] [phone] Lab, [facility] 04/07/2024 11:15 AM RETAIL WIRELESS ASSOCIATE Clinical Support [facility] [address] [phone] Nurse, [facility] 05/12/2024 11:00 AM RETAIL WIRELESS ASSOCIATE Lab [facility] [address] [phone] Lab, [facility] 05/12/2024 11:15 AM RETAIL WIRELESS ASSOCIATE Office Visit [facility] [address] [phone] Kev Moser MD [address] [place] [phone] 05/12/2024 11:30 AM RETAIL WIRELESS ASSOCIATE Clinical Support [facility] [address] [phone] Nurse, [facility] documented as of this encounter Visit Diagnoses Not on filedocumented in this encounter Additional Health Concerns Assessment Noted Time PHQ-9 Depression Total Score: 0 11/25/19 21 11:34 AM CDT documented as of this encounter Care Teams Custodial Services Manager Relationship Specialty Start Date End Date Scott Oneill MD PCP - General Internal Medicine 04/29/17 Tavo Mishra MD [address] [place] [phone] Internal Medicine 04/29/17 Gilmer Barnard MD [address] [phone] Consulting Physician Internal Medicine 08/28/17 4 Kev Moser MD [address] [place] [phone] Consulting Physician Oncology 02/09/20 documented as of this encounter
--- OUTSIDE RECORDS SUMMARY | 2024-04-04 01:27 | XMS_ITS | Encounter Summary ---
Author Organization [facility] [[email or web address]] Address [address] [place] [address] Phone Care Team Providers Care Outside Deliverer Name Role Phone Scott Oneill MD Primary Care Provider Tavo Mishra MD Unavailable [phone] Gilmer Barnard MD Unavailable [phone] Kev Moser MD Unavailable [phone] Reason for Visit * Reason Comments Follow-up Encounter Details Date Type Department Care Team (Late st Contact Info) Description 11/19/2023 11:15 AM CDT Office Visit [facility] [address] [place] [address] Sindi Qiu, REPROGRAPHICS TECHNICIAN, ANTISQUEAK CHALKER [address] [place] [address] Other autoimmune hemolytic anemia (HCC) (Primary Dx); Vitamin B 12 deficiency; Iron deficiency anemia due to sideropenic dysphagia; Stage 3a chronic kidney disease (HCC); Anemia, unspecified type Social History Tobacco Use Types Packs/Day Years Used Date Smoking Tobacco: Former Cigarettes 1 30 0 05/23/1981 - 05/23/2011 Smokeless Tobacco: Never Tobacco Cessation:Counseling Given: Not Answered Alcohol Use Standard Drinks/Week Comments No 0 (1 standard drink = 0.6 oz pur e alcohol) PHQ-2 Answer Date Recorded Total Score - Questions 1-9 0 12/0 05/2020 Sex and Gender Information Value Date Recorded Sex Assigned at Not on file Legal Sex Male 3:42 PM FUR FARMER Gender Identity Not on file Sexual Orientation Not on file documented as of this encounter Last Filed Vital Signs Vital Sign Reading Time Taken Comments Blood Pressure 130/72 11/19/2023 10:51 AM CDT Pulse 55 11/19/2023 10:51 AM CDT Temperature 36.7 ??C (98 ??F) 11/19/2023 10: 51 AM CDT Respiratory Rate 18 11/19/2023 10:5 1 AM CDT Oxygen Saturation 97% 11/19/2023 10: 51 AM CDT Inhaled Oxygen Concentration - - Weight 103.9 kg (229 lb 1.6 oz) 024 10:51 AM CDT Height 165.1 cm (5' 5 ) 11/19/2023 10:5 1 AM CDT Body Mass Index 38.12 11/19/2023 10:51 AM CDT documented in this encounter Functional Status * Question Answer Date of Assessment Author Little interest or pleasure in doing things Not at all 11/19/2023 10:49 AM CDT Rhonda Manrique CMA Feeling down, depressed, or hopeless Not at all 11/19/2023 10:49 AM CDT Rhonda Manrique RISK CONTROL MANAGER * Over the past 2 weeks, how often have you been bothered by any of the following problems? Question Answer Date of Assessment Author Patient Health Questionnaire -2 Score 0 11/19/2023 10:49 AM CDT Rhonda Manrique RISK CONTROL MANAGER documented as of this encounter Progress Notes * Sindi Qiu, REPROGRAPHICS TECHNICIAN, ANTISQUEAK CHALKER - 11/19/2023 11:15 AM CDT Images from the original note were not included. Patient: Britton Nielsen Age: 68 y.o. : 1955 Encounter Dept: [facility] Encounter Date: 11/19/2023 Care Team: Current Providers PCP: Scott Oneill MD Care Team Provider: Tavo Mishra MD Care Team Provider: Gilmer Barnard MD Care Team Provider: Kev Moser MD Encounter Provider: Sindi Qiu APRN, CNP Referring Provider: not found Nurse Practitioner: Sindi Qiu APRN, CNP HISTORY OF PRESENT ILLNESS: Britton returns today for followup. He remains on his CellCept 500 mg b.i.d. He is scheduled to see Dr. Weiss of Rheumatology this week at [facility]. He statesthat he is feeling well overall. He has no major complaints today. denies any fevers, chills, nightsweats, shortness of breath, cough, chest pain, abdominal pain or bleeding episodes reported. He con tinues on monthly B12 injections as well as oral ferrous sulfate daily. He had previously been anemic and on EPO injections while on CellCept. This was about five years ago. Since restarting CellCepthis hemoglobin has dropped again. It was 9.1 and it is 9.7 today. DIAGNOSIS: 1. Glomerulonephritis, sclerosing (renal biopsy 04/01/17). [...] PAST TREATMENT: 1. Gastroduodenal artery embolization at [facility] 05/2017. 2. Cytoxan 100 mg daily. [...] 1. On Eliquis b.i.d. Using samples. 2. Observation. 3. Monthly B12 injections. 4. Oral iron supplementation. 5. Following with Rheumatology and Pulmonology for interstitial lung disease and polyangiitis. 6. CellCept 500 mg b.i.d. TREATMENT GUIDELINES: Consistent with NCCN guidelines. 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 PLAN: 1. Patient's hemoglobin is still low today at 9.7. It has significantly dropped since he started onhis CellCept two to three months ago. I 2. He was previously on EPO injections while on CellCept about five years ago. I did discuss with him today that we may need to restart EPO injections. He does have a followup with Rheumatology this week. He is going to discuss with them whether or not he can switch out the CellCept to a different medication for his vasculitis or if he needs to stay on the CellCept. If so, he may need to considerstarting EPO injections. 3. He will plan to follow up with us again in two weeks to discuss the above and plan moving forward. 4. Continue following with other specialists including pulmonology. 5. Call with any questions, problems, or concerns. Dr. Moser in office. TIME SPENT: REVIEW OF SYSTEMS: [...] per Care Everywhere. Kev Moser MD, FACP RJ Briones/teena Vitals: Vitals: 11/19/23 1051 BP: 130/72 BP Location: Left Arm BP Position: Sitting BP Cuff Size: Regular Pulse: 55 Resp: 18 Temp: 98 ??F (36.7 ??C) TempSrc: Temporal SpO2: 97% Weight: 229 lb 1.6 oz (103.9 kg) Height: 5' 5 (1.651 m) Body surface area is 2.18 meters squared. Body mass index is 38.12 kg/m??. Pain Score: 5 Pain Loc: Leg (feet and lower legs) Allergies: No Known Allergies PMH/SgH/FH/SH: Past medical, [...] date: 05/23/1981 Quit date: 05/23/2011 Years since quittin.5 Smokeless tobacco: Never Vaping Use Vaping status: [...] Current Medications: Outpatient Encounter Medications as of 11/19/2023 Medication Sig Dispense Refill albuterol 108 (90 [...] mouth daily. atorvastatin (LIPITOR) 40 MG Tablet Calcium Carb-Cholecalciferol (CALCIUM 600 + D PO) Take by mouth 2 times daily. cyanocobalamin 1000 MCG Tablet Take 1 tablet by mouth daily 30 Tab 0 cyclobenzaprine (FLEXERIL) 5 MG Tablet Take 5 mg by mouth. (Patient not taking: Reported on 10/22/2023) ergocalciferol (VITAMIN D) 52855 UNIT Capsule Take 50,000 Units by mouth once a week. furosemide (LASIX) 40 MG Tablet Take 40 mg by mouth daily. irbesartan (AVAPRO) 300 MG Tablet Take 300 mg by mouth daily. labetalol (NORMODYNE) 200 MG Tablet Take 200 mg by mouth 2 times daily. mycophenolate mofetil (CELLCEPT) 500 MG Tablet TAKE 3 TABLETS BY MOUTH CLIP WRAPPER BEFORE BREAKFAST AND 2 TABS AFTER DINNER pantoprazole (PROTONIX) 40 MG Tablet Delayed Response [...] facility-administered encounter medications on file as of 11/19/2023. Labs: Lab on 11/19/2023 Component Date Value Ref Range Status WBC 11/19/2023 5.3 4.0 - 10.0 10*3/uL Final HGB 11/19/2023 9.7 (L) 13.7 - 17.5 g/dL Final HCT 11/19/2023 32.7 (L) 40.1 - 51.0 % Final PLT 11/19/2023 147 (L) 163 - 369 10*3/uL Final MPV 11/19/2023 9.9 9.4 - 12.4 fL Final RBC 11/19/2023 3.43 (L) 4.63 - 6.08 10*6/uL Final MCV 11/19/2023 95 79 - 95 fL Final MCH 11/19/2023 28.3 25.6 - 32.2 pg Final MCHC 11/19/2023 29.7 (L) 32.2 - 36.5 g/dL Final RDW 11/19/2023 14.9 (H) 11.6 - 14.4 % Final Cosigned by Kev Moser MD at 11/24/2023 12:27 PM CDT documented in this encounter Plan of Treatment Upcoming Encounters Date Type Department Care Team (Late st Contact Info) Description 04/07/2024 11:10 AM FUR FARMER Lab [facility] [address] [phone] Lab, [facility] 04/07/2024 11:15 AM FUR FARMER Clinical Support [facility] [address] [phone] Nurse, [facility] 05/12/2024 11:00 AM FUR FARMER Lab [facility] [address] [phone] Lab, [facility] 05/12/2024 11:15 AM FUR FARMER Office [facility] [address] [phone] Kev Moser MD [address] [place] [phone] 05/12/2024 11:30 AM FUR FARMER Clinical Support [facility] [address] [place] [address] Nurse, [facility] WEL[facility] documented as of this encounter Results * (ABNORMAL) CMP (COMPREHENSIVE METABOLIC PANEL) (12/03/2023 10:46 AM CDT) Glucose 84 70 - 105 mg/dL [facility] Blood Urea Nitrogen 29(H) 7 - 25 mg/dL [facility] Creatinine 2.1(H) 0.7 - 1.3 mg/dL [facility] Sodium 139 136 - 145 mEq/L [facility] Potassium 4.5 3.5 - 5.1 mEq/L [facility] Chloride 104 98 - 107 mEq/L [facility] Bicarbonate 25 21 - 31 mEq/L [facility] Total Bilirubin 0.7 0.3 - 1.0 mg/dL [facility] Alk. Phosphatase 76 34 - 104 U/L [facility] Aspartate Aminotransferase 8(L) 13 - 39 U/L [facility] Alanine Aminotransferase 7 7 - 52 U/L [facility] Total Protein 5.9(L) 6.4 - 8.9 g/dL [facility] Albumin 4.1 3.5 - 5.7 g/dL [facility] Calcium 7.7(L) 8.6 - 10.3 mg/dL [facility] Anion Gap 14.5 7.0 - 15.0 mEq/L [facility] Globulin 1.8(L) 2.0 - 3.5 g/dL [facility] EGFR 33(L) >60 ml/min/1. 73m2 [facility] Comment: This eGFR is calculated using 2020 CKD-EPI Creatinine equation without race modifier based on the NKF-ASN task force recommendations Blood 12/03/2023 10:4 6 AM CDT Narrative [facility] - 12/03/2023 11:53 AM CDT Release to patient->Immediate IS THE PATIENT REQUIRED TO BE FASTING FOR 8 HOURS?->No Sindi Qiu REPROGRAPHICS TECHNICIAN, ANTISQUEAK CHALKER CHEMISTRY ORDERABLES Final Result [facility] [place] [address], * (ABNORMAL) COMPLETE BLOOD COUNT (CBC) WITH DIFF (12/03/2023 10:46 AM CDT) WBC 6.2 4.0 - 10.0 10*3/uL [facility] HGB 9.7(L) 13.7 - 17.5 g/dL [facility] HCT 32.2(L) 40.1 - 51.0 % [facility] PLT 128(L) 163 - 369 10*3/uL [facility] MPV 9.7 9.4 - 12.4 fL [facility] RBC 3.40(L) 4.63 - 6.08 10*6/uL [facility] MCV 95 79 - 95 fL [facility] MCH 28.5 25.6 - 32.2 pg [facility] MCHC 30.1(L) 32.2 - 36.5 g/dL [facility] RDW 14.5(H) 11.6 - 14.4 % [facility] Absolute Neutrophil Count 4,682 cells/uL [facility] Absolute Seg Count 4,682 1,440 - 6,600 cells/uL [facility] Absolute Lymph Count 678(L) 760 - 4,000 cells/uL [facility] Absolute [place] Count 554 160 - 1,200 cells/uL [facility] Absolute Eos Count 246 0 - 300 cells/uL [facility] Segmented Neutrophils 76(H) 36 - 66 % [facility] Lymphocytes 11(L) 19 - 40 % [facility] Monocytes 9 4 - 12 % [facility] Eosinophils 4(H) 0 - 3 % [facility] WBC Estimate Normal [facility] Platelet Estimate Low [facility] RBC Morphology Normal [facility] Blood 12/03/2023 10:4 6 AM CDT Narrative [facility] - 12/03/2023 1:50 PM CDT Release to patient->Immediate Sindi Qiu APRN, ANTISQUEAK CHALKER HEMATOLOGY ORDERABLES Final Result [facility] [place] [address], documented in this encounter Visit Diagnoses Diagnosis Other autoimmune hemolytic anemia (HCC)- Primary Vitamin B 12 deficiency Other B-complex deficiencies Iron deficiency anemia due to sideropenic dysphagia Stage 3a chronic kidney disease (HCC) Anemia, unspecified type Other autoimmune hemolytic anemia (HCC) Stage 3a chronic kidney disease (HCC) documented in this encounter Additional Health Concerns Assessment Noted Time PHQ-9 Depression Total Score: 0 11/25/19 21 11:34 AM CDT documented as of this encounter Care Teams Outside Deliverer Relationship Specialty Start Date End Date Scott Oneill MD PCP - General Internal Medicine 04/29/17 Tavo Mishra MD [facility] [address] [address] Internal Medicine 04/29/17 Gilmer Barnard MD [facility] [address] [address] Consulting Physician Internal Medicine 08/28/17 4 Kev Moser MD [address] [place] [address] Consulting Physician Oncology 02/09/20 documented as of this encounter
--- OUTSIDE RECORDS SUMMARY | 2024-04-04 01:27 | XMS_ITS | Encounter Summary ---
Author Organization [employer] Care Team Providers Care Matting Press Tender Name Role Phone Scott Oneill MD Primary Care Provider [phone] Tavo Mishra MD Unavailable [phone] Kev Moser MD Unavailable [phone] Encounter Details Date Type Department Care Team (Latest Contact Info) Description 02/11/2024 Travel Social History Tobacco Use Types Packs/Day [...] on file Legal Sex Male 3:42 PM WRAPPER OFF Gender Identity Not on file Sexual Orientation Not on file documented as of this encounter Plan of Treatment Upcoming Encounters Date Type Department Care Team (Late st Contact Info) Description 04/07/2024 11:10 AM WRAPPER OFF Lab [facility] [address] [phone] Lab, [facility] 04/07/2024 11:15 AM WRAPPER OFF Clinical Support [facility] [address] [phone] Nurse, [facility] 05/12/2024 11:00 AM WRAPPER OFF Lab [facility] [address] [phone] Lab, [facility] 05/12/2024 11:15 AM WRAPPER OFF Office Visit [facility] [address] [phone] Kev Moser MD [address] [place] [phone] 05/12/2024 11:30 AM WRAPPER OFF Clinical Support [facility] [address] [phone] Nurse, [facility] documented as of this encounter Visit Diagnoses Not on filedocumented in this encounter Additional Health Concerns Assessment Noted Time PHQ-9 Depression Total Score: 0 11/25/19 21 11:34 AM CDT documented as of this encounter Care Teams Matting Press Tender Relationship Specialty Start Date End Date Scott Oneill MD PCP - General Internal Medicine 04/29/17 Tavo Mishra MD [address] [address] Internal Medicine 04/29/17 Kev Moser MD [address] [place] [phone] Consulting Physician Oncology 02/09/20 documented as of this encounter
--- OUTSIDE RECORDS SUMMARY | 2024-04-04 01:27 | XMS_ITS | Encounter Summary ---
Author Organization [facility] Address [address] [place] [address] Phone Care Team Providers Care Chemical Analytical Sampler Name Role Phone Scott Oneill MD Primary Care Provider [phone] Tavo iMshra MD Unavailable [phone] Gilmer Barnard MD Unavailable [phone] Kev Moser MD Unavailable [phone] Reason for Visit * Reason Comments Therapeutic Injection * Episode Based Medications (Routine) - Authorized Specialty Diagnoses / Procedures Referred By Contamy t Referred To Contact Diagnoses Vitamin B 12 deficiency Procedures VITAMIN B12 INJ RANGE DOSE 1-1,000 MCG Kev Moser MD [address] [place] [phone] Phone: tel: fax: [facility] [address] [address] Phone: tel: fax: Referral ID Status Reason Start Date Expiration Date V isits Requested Visits Authorized [id number] Authorized 03/06/2022 03/30/2027 1 1 Encounter Details Date Type Department Care Team (Latest Contact Info) Description 11/19/2023 9:15 AM CDT Clinical Support [facility] [address] [phone] [facility] Vitamin B 12 deficiency (Primary Dx) Social [...] on file Legal Sex Male 3:42 PM TREE MARKER Gender Identity Not on file Sexual Orientation [...] as of this encounter Progress Notes * Ne Villegas RN - 11/19/2023 9:15 AM CDT Patient in for B12 injection. Patient tolerated B12 injection well to left arm. Bandaid applied. Patient's performance status has not changed since arrival to clinic. Patient discharged ambulatory. documented in this encounter Plan of Treatment Upcoming Encounters Date Type Department Care Team (Late st Contact Info) Description 04/07/2024 11:10 AM TREE MARKER Lab [facility] [address] [address] Lab, [facility] 04/07/2024 11:15 AM TREE MARKER Clinical Support [facility] [address] [address] Nurse, [facility] [place] 05/12/2024 11:00 AM TREE MARKER Lab [facility] [address] [phone] Lab, [facility] [place] 05/12/2024 11:15 AM TREE MARKER Office Visit [facility] [address] [phone] Kev Moser MD [address] [place] [phone] 05/12/2024 11:30 AM TREE MARKER Clinical Support [facility] [address] [phone] Nurse, [facility] documented as of this encounter Visit Diagnoses Diagnosis Vitamin B 12 deficiency- Primary Other B-complex deficiencies documented in this encounter Administered Medications Inactive Administered Medications - up to 3 most recent administrations Medication Order MAR Action Action Date Dose Rate Site cyanocobalamin (VITAMIN B-12) injection 1,000 mcg 1,000 mcg, Subcutaneous, ONCE, 1 dose, On Fri11/19/23 at 1230, To be given 1 week prior to Chemotherapy. Route IM or SUBQ.Indications:Vitam in B 12 deficiency Given 11/19/2023 11:53 AM CDT 1,000 mcg Left Lateral Upper Arm documented in this encounter Additional Health Concerns Assessment Noted Time PHQ-9 Depression Total Score: 0 11/25/19 11:34 AM CDT documented as of this encounter Care Teams Chemical Analytical Sampler Relationship Specialty Start Date End Date Scott Oneill MD PCP - General Internal Medicine 04/29/17 Tavo Mishra MD [address] [place] [phone] Internal Medicine 04/29/17 Gilmer Barnard MD [address] [place] [address] Consulting Physician Internal Medicine 08/28/17 4 Kev Moser MD [address] [place] [phone] Consulting Physician Oncology 02/09/20 documented as of this encounter
--- OUTSIDE RECORDS SUMMARY | 2024-04-04 01:27 | XMS_ITS | Encounter Summary ---
Author Organization [facility] Address [address] [place] [address] Phone Care Team Providers Care It Help Desk Technician Name Role Phone Scott Oneill MD Primary Care Provider Tavo Mishra MD Unavailable [phone] Gilmer Barnard MD Unavailable [phone] Kev Moser MD Unavailable [phone] Encounter Details Date Type Department Care Team (Late st Contact Info) Description 12/17/2023 11:00 AM CDT Lab [facility] [address] [phone] Lab, [facility] Stage 3a chronic kidney disease (HCC) Social History Tobacco Use Types Packs/Day [...] on file Legal Sex Male 3:42 PM WRECKING CRANE ENGINE OPERATOR Gender Identity Not on file Sexual Orientation Not on file documented as of this encounter Plan of Treatment Upcoming Encounters Date Type Department Care Team (Late st Contact Info) Description 04/07/2024 11:10 AM WRECKING CRANE ENGINE OPERATOR Lab [facility] [address] [phone] Lab, [facility] 04/07/2024 11:15 AM WRECKING CRANE ENGINE OPERATOR Clinical Support [facility] [address] [phone] Nurse, [facility] 05/12/2024 11:00 AM WRECKING CRANE ENGINE OPERATOR Lab [facility] [address] [phone] Lab, [facility] 05/12/2024 11:15 AM WRECKING CRANE ENGINE OPERATOR Office Visit [facility] [address] [phone] Kev Moser MD [address] [place] [phone] 05/12/2024 11:30 AM WRECKING CRANE ENGINE OPERATOR Clinical Support [facility] [address] [phone] Nurse, [facility] documented as of this encounter Procedures Procedure Name Priority Date/Time Associated Diagnosis Comments CBC WITH AUTO DIFF OH Routine 12/17/2023 10:42 AM CDT documented in this encounter Results * (ABNORMAL) CBC WITH AUTO DIFF [place] (12/17/2023 10:42 AM CDT) WBC 5.1 4.0 - 10.0 10*3/uL [facility] HGB 9.8(L) 13.7 - 17.5 g/dL [facility] HCT 32.6(L) 40.1 - 51.0 % [facility] PLT 126(L) 163 - 369 10*3/uL [facility] MPV 10.0 9.4 - 12.4 fL [facility] RBC 3.38(L) 4.63 - 6.08 10*6/uL [facility] MCV 96(H) 79 - 95 fL [facility] MCH 29.0 25.6 - 32.2 pg [facility] MCHC 30.1(L) 32.2 - 36.5 g/dL [facility] RDW 14.1 11.6 - 14.4 % [facility] Neutrophils % 77.6(H) 36.0 - 66.0 % [facility] Lymphocytes % 11.7(L) 19.0 - 40.0 % [facility] Monocytes % 7.1 4.1 - 12.1 % [facility] Eosinophils % 2.4 0.0 - 3.5 % [facility] Basophils % 0.6 0.0 - 1.0 % [facility] Nucleated RBC 0 0 - 1 % [facility] Absolute Neutrophils 3.9 1.4 - 6.6 10*3/uL [facility] Absolute Lymphocytes 0.6(L) 0.8 - 4.0 10*3/uL [facility] Absolute Monocytes 0.4 0.2 - 1.2 10*3/uL [facility] Absolute Eosinophils 0.1 0.0 - 0.4 10*3/uL [facility] Absolute Basophils 0.0 0.0 - 0.1 10*3/uL [facility] 12/17/2023 10:4 2 AM CDT us Kev Moser MD LAB SEND OUTS Final Resul t [facility] documented in this encounter Visit Diagnoses Diagnosis Stage 3a chronic kidney disease (HCC) documented in this encounter Additional Health Concerns Assessment Noted Time PHQ-9 Depression Total Score: 0 11/25/19 21 11:34 AM CDT documented as of this encounter Care Teams It Help Desk Technician Relationship Specialty Start Date End Date Scott Oneill MD PCP - General Internal Medicine 04/29/17 Tavo Mishra MD [address] [place] [address] Internal Medicine 04/29/17 Gilmer Barnard MD [address] [place] [address] Consulting Physician Internal Medicine 08/28/17 4 Kev Moser MD [address] [place] [phone] Consulting Physician Oncology 02/09/20 documented as of this encounter
--- OUTSIDE RECORDS SUMMARY | 2024-04-04 01:27 | XMS_ITS | Encounter Summary ---
Author Organization [facility] Address [address] [place] [address] Phone Care Team Providers Care Parachute/Combatant Diver Officer Name Role Phone Scott Oneill MD Primary Care Provider Tavo Mishra MD Unavailable [phone] Kev Moser MD Unavailable [phone] Reason for Visit * Reason Comments Follow-up Encounter Details Date Type Department Care Team (Late st Contact Info) Description 01/14/2024 11:15 AM CDT Office Visit [facility] [address] [phone] Kev Moser MD [address] [place] [phone] 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); Other autoimmune hemolytic anemia (HCC); Stage 3a chronic kidney disease (HCC) Social [...] on file Legal Sex Male 3:42 PM ABRASIVE SAWYER Gender Identity Not on file Sexual Orientation Not on file documented as of this encounter Last Filed Vital Signs Vital Sign Reading Time Taken Comments Blood Pressure 142/78 01/14/2024 10:54 AM CDT Pulse 63 01/14/2024 10:54 AM CDT Temperature 37.2 ??C (98.9 ??F) 01/14/2024 10:54 AM C DT Respiratory Rate 18 01/14/2024 10:54 AM CDT Oxygen Saturation 96% 01/14/2024 10:54 AM CDT Inhaled Oxygen Concentration - - Weight 103.4 kg (228 lb) 01/14/2024 10:54 AM CDT Height 165.1 cm (5' 5 ) 01/14/2024 10:54 AM CDT Body Mass Index 37.94 01/14/2024 10:54 AM CDT documented in this encounter Functional Status * Question Answer Date of Assessment Author Little interest or pleasure in doing things Not at all 01/14/2024 10:54 AM CDT Viji Tobias LPN Feeling down, depressed, or hopeless Not at all 01/14/2024 10:54 AM CDT Viji Tobias LPN * Over the past 2 weeks, how often have you been bothered by any of the following problems? Question Answer Date of Assessment Author Patient Health Questionnaire-2 Score 0 01/14/2024 10:54 AM CDT Theresa Tobias LPN documented as of this encounter Progress Notes * Kev Moser MD - 01/14/2024 11:15 AM CDT Images from the original note were not included. Patient: Britton Nielsen Age: 68 y.o. : 1955 [facility] En[facility] Date: 01/14/2024 Care Team: Current Providers PCP: Scott Oneill MD Care Team Provider: Tavo Mishra MD Care Team Provider: Kev Moser MD Encounter Provider: Kev Moser MD Referring Provider: not found Consulting Physician: Kev Moser MD HISTORY OF PRESENT ILLNESS: Britton returns. He is doing stable. He feels a little bit better after getting his hemoglobin up above 10 with EPO shot. He had his last one four weeks ago. DIAGNOSIS: 1. Glomerulonephritis, sclerosing (renal biopsy 04/01/17). [...] PAST TREATMENT: 1. Gastroduodenal artery embolization at [facility] 05/2017. 2. 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 PLAN: 1. B12 and EPO q.4 weeks. I will see him back in eight weeks. Continue to stay on immunosuppressionlike CellCept per other providers including Rheumatology, Pulmonary and Nephrology. The patient is still having significant pain, unfortunately. Monitor closely. We will try to keep his hemoglobin between 10 and 11. TIME SPENT: REVIEW OF SYSTEMS: See HPI; [...] reviewed per Care Everywhere. Kev Moser MD, FACP/[facility] Vitals: Vitals: 01/14/24 1054 BP: 142/78 BP Location: Left Arm BP Position: Sitting BP Cuff Size: Regular Pulse: 63 Resp: 18 Temp: 98.9 ??F (37.2 ??C) TempSrc: Temporal SpO2: 96% Weight: 228 lb (103.4 kg) Height: 5' 5 (1.651 m) Body surface area is 2.18 meters squared. Body mass index is 37.94 kg/m??. Pain Score: 4 Pain Loc: Leg Allergies: No Known Allergies PMH/SgH/FH/SH: Past medical, [...] date: 05/23/1981 Quit date: 05/23/2011 Years since quittin.6 Smokeless tobacco: Never Vaping Use Vaping status: [...] Current Medications: Outpatient Encounter Medications as of 01/14/2024 Medication Sig Dispense Refill albuterol 108 (90 [...] taking: Reported on 12/03/2023) ergocalciferol (VITAMIN D) 86875 UNIT Capsule Take 50,000 Units by mouth [...] tablet by mouth once daily 30 Tablet 1 tadalafil (CIALIS) 20 MG Tablet TAKE 1 TABLET BY MOUTH ONCE DAILY NEEDED traMADol (ULTRAM) 50 MG Tablet 0 No facility-administered encounter medications on file as of 01/14/2024. Labs: Lab on 01/14/2024 Component Date Value Ref Range Status WBC 01/14/2024 3.3 (L) 4.0 - 10.0 10*3/uL Final HGB 01/14/2024 10.8 (L) 13.7 - 17.5 g/dL Final HCT 01/14/2024 36.4 (L) 40.1 - 51.0 % Final PLT 01/14/2024 123 (L) 163 - 369 10*3/uL Final MPV 01/14/2024 10.4 9.4 - 12.4 fL Final RBC 01/14/2024 3.73 (L) 4.63 - 6.08 10*6/uL Final MCV 01/14/2024 98 (H) 79 - 95 fL Final MCH 01/14/2024 29.0 25.6 - 32.2 pg Final MCHC 01/14/2024 29.7 (L) 32.2 - 36.5 g/dL Final RDW 01/14/2024 13.7 11.6 - 14.4 % Final documented in this encounter Plan of Treatment Upcoming Encounters Date Type Department Care Team (Late st Contact Info) Description 04/07/2024 11:10 AM ABRASIVE SAWYER Lab [facility] [address] [phone] Lab, Cc [facility] 04/07/2024 11:15 AM ABRASIVE SAWYER Clinical Support [facility] [address] [phone] Nurse, Cc [facility] 05/12/2024 11:00 AM ABRASIVE SAWYER Lab [facility] [address] [phone] Lab, [facility] 05/12/2024 11:15 AM ABRASIVE SAWYER Office Visit [facility] [address] [phone] Kev Moser MD [address] [place] [phone] 05/12/2024 11:30 AM ABRASIVE SAWYER Clinical Support [facility] [address] [phone] Nurse, [facility] documented as of this encounter Results * IRON W/ IRON BINDING CAPACITY [place] (03/10/2024 11:00 AM ABRASIVE SAWYER) IRON 66 50 - 212 ug/dL [facility] UIBC 205 155 - 355 ug/dL [facility] TIBC 271 261 - 478 ug/dl [facility] % Saturation 24 20 - 50 % [facility] 03/10/2024 11:0 0 AM ABRASIVE SAWYER Narrative [facility] - 03/10/2024 12:06 PM ABRASIVE SAWYER Release to patient->Immediate Kev Moser MD LAB SEND OUTS Final Resul t [facility] [address] [place] [address], * (ABNORMAL) RETICULOCYTE COUNT (RETIC) (03/10/2024 11:00 AM ABRASIVE SAWYER) Reticulocyte count 2.14(H) 0.51 - 1.81 % [facility] RET-He 29.10 28.20 - 36.60 pg [facility] Comment: RET-He is a direct assessment of incorporation of iron into erythrocyte hemoglobin. It provides an indirect measure of the iron available for new erythropoiesis over past 2-4 days. Blood 03/10/2024 11:[address] [facility] 03/10/2024 11:15 AM ABRASIVE SAWYER Release to patient->Immediate us Kev Moser MD HEMATOLOGY ORDERABLES Final Result Performing Organization Address [facility] Co de Phone Number [facility] [place] [address] [place] [address], [place] [phone] * (ABNORMAL) FERRITIN (03/10/2024 11:00 AM ABRASIVE SAWYER) Ferritin 361(H) 24 - 336 ng/mL [facility] Blood 03/10/2024 11:0 0 AM ABRASIVE SAWYER [facility] - 03/11/2024 2:49 PM ABRASIVE SAWYER Release to patient->Immediate us Kev Moser MD CHEMISTRY ORDERABLES Final Result Performing Organization Address [facility] de Phone Number [facility] [place] [address] [place] [address], [place] [phone] * FOLIC ACID (FOLATE) (03/10/2024 11:00 AM ABRASIVE SAWYER) Folate 12.20 >=5.90 ng/mL [facility] Blood 03/10/2024 11:0 0 AM ABRASIVE SAWYER [facility] - 03/11/2024 2:49 PM ABRASIVE SAWYER Release to patient->Immediate IS THE PATIENT REQUIRED TO BE FASTING FOR 12 HOURS?->No us Kev Moser MD CHEMISTRY ORDERABLES Final Result Performing Organization Address [facility] Co de Phone Number [facility] [place] [address] [place] [address], [place] [phone] * VITAMIN B12 (03/10/2024 11:00 AM ABRASIVE SAWYER) Vitamin B12 405 180 - 914 pg/mL [facility] Blood 03/10/2024 11:0 0 AM ABRASIVE SAWYER [facility] - 03/11/2024 2:49 PM ABRASIVE SAWYER Release to patient->Immediate us Kev Moser MD CHEMISTRY ORDERABLES Final Result Performing Organization Address City/[facility]/ZIP Co de Phone Number [facility] [address] [place] [address], [place] [phone] * LACTATE DEHYDROGENASE (LD) (03/10/2024 11:00 AM ABRASIVE SAWYER) LDH 187 140 - 271 U/L [facility] Blood 03/10/2024 11:0 0 AM ABRASIVE SAWYER [employer] [facility] 03/10/2024 12:06 PM ABRASIVE SAWYER Release to patient->Immediate us Kev Moser MD CHEMISTRY ORDERABLES Final Result Performing Organization Address City/[facility] Co de Phone Number [facility] [address] [place] [address], [place] [phone] * (ABNORMAL) CMP (COMPREHENSIVE METABOLIC PANEL) (03/10/2024 11:00 AM ABRASIVE SAWYER) Glucose 64(L) 70 - 105 mg/dL [facility] Blood Urea Nitrogen 35(H) 7 - 25 mg/dL [facility] Creatinine 2.4(H) 0.7 - 1.3 mg/dL [facility] Sodium 140 136 - 145 mEq/L [facility] Potassium 4.6 3.5 - 5.1 mEq/L [facility] Chloride 104 98 - 107 mEq/L [facility] Bicarbonate 24 21 - 31 mEq/L [facility] Total Bilirubin 0.8 0.3 - 1.0 mg/dL [facility] Alk. Phosphatase 84 34 - 104 U/L [facility] Aspartate Aminotransferase 10(L) 13 - 39 U/L [facility] Alanine Aminotransferase 10 7 - 52 U/L [facility] Total Protein 6.5 6.4 - 8.9 g/dL [facility] Albumin 4.3 3.5 - 5.7 g/dL [facility] Calcium 8.7 8.6 - 10.3 mg/dL [facility] Anion Gap 16.6(H) 7.0 - 15.0 mEq/L [facility] Globulin 2.2 2.0 - 3.5 g/dL [facility] EGFR 28(L) >60 ml/min/1. 73m2 [facility] Comment: This eGFR is calculated using 2020 CKD-EPI Creatinine equation without race modifier based on the NKF-ASN task force recommendations Blood 03/10/2024 11:0 0 AM ABRASIVE SAWYER Narrative [facility] - 03/10/2024 12:06 PM ABRASIVE SAWYER Release to patient->Immediate IS THE PATIENT REQUIRED TO BE FASTING FOR 8 HOURS?->No Kev Moser MD CHEMISTRY ORDERABLES Final Result [facility] [place] [address], * (ABNORMAL) COMPLETE BLOOD COUNT (CBC) WITH DIFF (03/10/2024 11:00 AM ABRASIVE SAWYER) WBC 6.3 4.0 - 10.0 10*3/uL [facility] HGB 11.6(L) 13.7 - 17.5 g/dL [facility] HCT 37.0(L) 40.1 - 51.0 % [facility] PLT 143(L) 163 - 369 10*3/uL [facility] MPV 9.9 9.4 - 12.4 fL [facility] RBC 4.09(L) 4.63 - 6.08 10*6/uL [facility] MCV 91 79 - 95 fL [facility] MCH 28.4 25.6 - 32.2 pg [facility] MCHC 31.4(L) 32.2 - 36.5 g/dL [facility] RDW 14.1 11.6 - 14.4 % [facility] Absolute Neutrophil Count 4,836 cells/uL [facility] Absolute Seg Count 4,836 1,440 - 6,600 cells/uL [facility] Absolute Lymph Count 691(L) 760 - 4,000 cells/uL [facility] Absolute Crockett Count 628 160 - 1,200 cells/uL [facility] Absolute Eos Count 63 0 - 300 cells/uL [facility] Absolute Baso Count 63 0 - 100 cells/uL [facility] Segmented Neutrophils 77(H) 36 - 66 % [facility] Lymphocytes 11(L) 19 - 40 % [facility] Monocytes 10 4 - 12 % [facility] Eosinophils 1 0 - 3 % [facility] Basophils 1 0 - 1 % [facility] WBC Estimate Normal [facility] Platelet Estimate Low [facility] RBC Morphology Normal [facility] Blood 03/10/2024 11:0 0 AM ABRASIVE SAWYER Narrative [facility] - 03/10/2024 12:53 PM ABRASIVE SAWYER Release to patient->Immediate Kev Moser MD HEMATOLOGY ORDERABLES Final Result [facility] [place] [address], * (ABNORMAL) COMPLETE BLOOD COUNT (CBC) WITH DIFF (02/11/2024 11:19 AM ABRASIVE SAWYER) WBC 5.8 4.0 - 10.0 10*3/uL [facility] HGB 11.1(L) 13.7 - 17.5 g/dL [facility] HCT 36.5(L) 40.1 - 51.0 % [facility] PLT 119(L) 163 - 369 10*3/uL [facility] MPV 10.3 9.4 - 12.4 fL [facility] RBC 3.91(L) 4.63 - 6.08 10*6/uL [facility] MCV 93 79 - 95 fL [facility] MCH 28.4 25.6 - 32.2 pg [facility] MCHC 30.4(L) 32.2 - 36.5 g/dL [facility] RDW 14.2 11.6 - 14.4 % [facility] Absolute Neutrophil Count 4,781 cells/uL [facility] Absolute Seg Count 4,781 1,440 - 6,600 cells/uL [facility] Absolute Lymph Count 525(L) 760 - 4,000 cells/uL [facility] Absolute Crockett Count 350 160 - 1,200 cells/uL [facility] Absolute Eos Count 175 0 - 300 cells/uL [facility] Segmented Neutrophils 82(H) 36 - 66 % [facility] Lymphocytes 9(L) 19 - 40 % [facility] Monocytes 6 4 - 12 % [facility] Eosinophils 3 0 - 3 % [facility] WBC Estimate Normal [facility] Platelet Estimate Low [facility] RBC Morphology Normal [facility] Blood 02/11/2024 11:1 9 AM ABRASIVE SAWYER Narrative [facility] - 02/11/2024 12:15 PM ABRASIVE SAWYER Release to patient->Immediate us Kev Moser MD HEMATOLOGY ORDERABLES Final Result [facility] [place] [address], [place] [phone] documented in this encounter Visit Diagnoses Diagnosis 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 Other autoimmune hemolytic anemia (HCC) Stage 3a chronic kidney disease (HCC) 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) Stage 3a chronic kidney disease (HCC) 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) Stage 3a chronic kidney disease (HCC) documented in this encounter Additional Health Concerns Assessment Noted Time PHQ-9 Depression Total Score: 0 11/25/19 21 11:34 AM CDT documented as of this encounter Care Teams Parachute/Combatant Diver Officer Relationship Specialty Start Date End Date Scott Oneill MD PCP - General Internal Medicine 04/29/17 Tavo Mishra MD [address] [address] Internal Medicine 04/29/17 Kev Moser MD [address] [place] [phone] Consulting Physician Oncology 02/09/20 documented as of this encounter
--- OUTSIDE RECORDS SUMMARY | 2024-04-04 01:27 | XMS_ITS | Encounter Summary ---
Author Organization [facility] Address [address] [place] [address] Phone Care Team Providers Care National Sales Representative Name Role Phone Scott Oneill MD Primary Care Provider Tavo Mishra MD Unavailable [phone] Gilmer Barnard MD Unavailable [phone] Kev Moser MD Unavailable [phone] Reason for Visit * Reason Comments Other Eliquis sample dispe nse Encounter Details Date Type Department Care Team (Latest Contact Info) Description 12/03/2023 11:30 AM CDT Clinical Support [facility] [address] [phone] Nurse, Cc [facility] Other autoimmune hemolytic anemia (HCC) Social [...] on file Legal Sex Male 3:42 PM SOLUTION SALES SENIOR EXECUTIVE Gender Identity Not on file Sexual Orientation Not on file documented as of this encounter Functional Status * Question Answer Date of Assessment Author Little interest or pleasure in doing things Not at all 12/03/2023 10:53 AM CDT Rhonda Manrique CMA Feeling down, depressed, or hopeless Not at all 12/03/2023 10:53 AM CDT Rhonda Manrique CMA * Over the past 2 weeks, how often have you been bothered by any of the following problems? Question Answer Date of Assessment Author Patient Health Questionnaire -2 Score 0 12/03/2023 10:53 AM CDT Rhonda Manrique CMA documented as of this encounter Progress Notes * Fritz Pena RN - 12/03/2023 11:30 AM CDT Eliquis 5mg sample dispense Take one tablet by mouth twice daily. 4 BOXES GIVEN (56 TABS) LOT#: [id number] EXP: 11/2024 x2 LOT: [id number] EXP: 12/2024 x2 documented in this encounter Plan of Treatment Upcoming Encounters Date Type Department Care Team (Late st Contact Info) Description 04/07/2024 11:10 AM SOLUTION SALES SENIOR EXECUTIVE Lab [facility] [address] [address] Lab, [facility] 04/07/2024 11:15 AM SOLUTION SALES SENIOR EXECUTIVE Clinical Support [facility] [address] [phone] Nurse, [facility] 05/12/2024 11:00 AM SOLUTION SALES SENIOR EXECUTIVE Lab [facility] [address] [phone] Lab, [facility] 05/12/2024 11:15 AM SOLUTION SALES SENIOR EXECUTIVE Office Visit [facility] [address] [phone] Kev Moser MD [address] [place] [phone] 05/12/2024 11:30 AM SOLUTION SALES SENIOR EXECUTIVE Clinical Support [facility] [address] [phone] Nurse, Cc [facility] documented as of this encounter Visit Diagnoses Diagnosis Other autoimmune hemolytic anemia (HCC) documented in this encounter Additional Health Concerns Assessment Noted Time PHQ-9 Depression Total Score: 0 11/25/19 21 11:34 AM CDT documented as of this encounter Care Teams National Sales Representative Relationship Specialty Start Date End Date Scott Oneill MD PCP - General Internal Medicine 04/29/17 Tavo Mishra MD [address] [place] [phone] Internal Medicine 04/29/17 Gilmer Barnard MD [address] [place] [phone] Consulting Physician Internal Medicine 08/28/17 4 Kev Moser MD [address] [place] [phone] Consulting Physician Oncology 02/09/20 documented as of this encounter
--- OUTSIDE RECORDS SUMMARY | 2024-04-04 01:27 | XMS_ITS | Encounter Summary ---
Author Organization [facility] Address [address] [place] [address] Phone Care Team Providers Care Duct Layer Supervisor Name Role Phone Scott Oneill MD Primary Care Provider [phone] Tavo Mishra MD Unavailable [phone] Kev Moser MD Unavailable [phone] Reason for Visit * Reason Comments Therapeutic Injection * Episode Based Medications (Routine) - Authorized Specialty Diagnoses / Procedures Referred By Contac t Referred To Contact Diagnoses Vitamin B 12 deficiency Procedures VITAMIN B12 INJ RANGE DOSE 1-1,000 MCG Kev Moser MD [address] [place] [phone] Phone: tel: fax: [facility] [address] [address] Phone: tel: fax: Referral ID Status Reason Start Date Expiration Date V isits Requested Visits Authorized [id number] Authorized 03/06/2022 03/30/2027 1 1 Encounter Details Date Type Department Care Team (Latest Contact Info) Description 03/10/2024 11:30 AM CUSTOMER SUPPORT ASSISTANT Clinical Support [facility] [address] [phone] Nurse, [facility] Vitamin B 12 deficiency (Primary Dx) [...] on file Legal Sex Male 3:42 PM CUSTOMER SUPPORT ASSISTANT Gender Identity Not on file Sexual Orientation [...] as of this encounter Progress Notes * Wen Hines RN - 03/10/2024 11:30 AM CST Patient in for B12 injection and possible Aranesp injection. HGB 11.6 so patient does not require Aranesp injection today. Tolerated B12 injection well to left arm. No change in patient performace status since arrival to clinic. Patient discharged ambulatory unaccompanied. OMER SUPPORT ASSISTANT documented in this encounter Plan of Treatment Upcoming Encounters Date Type Department Care Team (Late st Contact Info) Description 04/07/2024 11:10 AM CUSTOMER SUPPORT ASSISTANT Lab [facility] [address] [phone] Lab, [place] 04/07/2024 11:15 AM CUSTOMER SUPPORT ASSISTANT Clinical Support [facility] [address] [phone] Nurse, Gricelda [facility] 05/12/2024 11:00 AM CUSTOMER SUPPORT ASSISTANT Lab [facility] [address] [phone] Lab, [facility] 05/12/2024 11:15 AM CUSTOMER SUPPORT ASSISTANT Office Visit [facility] [address] [phone] Kev Moser MD [address] [place] [phone] 05/12/2024 11:30 AM CUSTOMER SUPPORT ASSISTANT Clinical Support [facility] [address] [phone] Nurse, [facility] documented as of this encounter Visit Diagnoses Diagnosis Vitamin B 12 deficiency- Primary Other B-complex deficiencies documented in this encounter Administered Medications Inactive Administered Medications - up to 3 most recent administrations Medication Order MAR Action Action Date Dose Rate Site cyanocobalamin (VITAMIN B-12) injection 1,000 mcg 1,000 mcg, Subcutaneous, ONCE, 1 dose, On Fri03/10/24 at 1230, To be given 1 week prior to Chemotherapy. Route IM or SUBQ.Indications:Vitam in B 12 deficiency Given 03/10/2024 11:52 AM CUSTOMER SUPPORT ASSISTANT 1,000 mcg Left Lateral Upper Arm documented in this encounter Additional Health Concerns Assessment Noted Time PHQ-9 Depression Total Score: 0 11/25/19 21 11:34 AM CDT documented as of this encounter Care Teams Duct Layer Supervisor Relationship Specialty Start Date End Date Scott Oneill MD PCP - General Internal Medicine 04/29/17 Tavo Mishra MD [address] [place] [address] [phone] Internal Medicine 04/29/17 Kev Moser MD [address] [place] [phone] Consulting Physician Oncology 02/09/20 documented as of this encounter
--- OUTSIDE RECORDS SUMMARY | 2024-04-04 01:27 | XMS_ITS | Clinical Summary ---
Author Organization [facility] Address [address] [address] Phone Care Team Providers Care Dental Laboratory Supervisor Name Role Phone Scott Oneill MD Primary Care Provider [phone] Tavo Mishra MD Unavailable [phone] Kev Moser MD Unavailable [phone] Allergies No known active allergies Medications Calcium Carb-Cholecalcifer ol (CALCIUM 600 + D PO) Take by mouth 2 times daily. Active potassium chloride SA (KLORCON M) 20 MEQ Tablet Controlled Release Take 20 mEq by mouth 2 times daily. Active furosemide (LASIX) 40 MG Tablet Take 40 mg by mouth daily. Active labetalol (NORMODYNE) 200 MG Tablet Take 200 mg by mouth 2 times daily. Active ergocalciferol (VITAMIN D) 23973 UNIT Capsule Take 50,000 Units by mouth once a week. Active cyanocobalamin 1000 MCG Tablet Take 1 tablet by mouth daily 30 Tab 019 Active traMADol (ULTRAM) 50 MG Tablet 0 019 Active tadalafil (CIALIS) 20 MG Tablet TAKE 1 TABLET BY MOUTH ONCE DAILY NEEDED 020 Active sodium bicarbonate 650 MG Tablet Take 650 mg by mouth 2 times daily. 021 Active atorvastatin (LIPITOR) 40 MG Tablet 021 Active aspirin EC 81 MG Tablet Delayed Response Take 81 mg by mouth daily. Active pantoprazole (PROTONIX) 40 MG Tablet Delayed Response TAKE 1 TABLET BY MOUTH IN THE MORNING Active pregabalin (LYRICA) 50 MG Capsule Take 50 mg by mouth 3 times daily. Active albuterol 108 (90 Base) MCG/ACT Aerosol Solution Active Anoro Ellipta 62.5-25 MCG/ACT AEROSOL POWDER, BREATH ACTIVATED INHALE 1 PUFF BY MOUTH ONCE DAILY Active mycophenolate mofetil (CELLCEPT) 500 MG Tablet 1 tablet in AM and 1 in PM Active cyclobenzaprine (FLEXERIL) 5 MG Tablet Take 5 mg by mouth. Active irbesartan (AVAPRO) 300 MG Tablet Take 300 mg by mouth daily. Active calcitRIOL (ROCALTROL) 0.25 MCG Capsule Active ferrous sulfate (SV Iron) 325 (65 Fe) MG TabletIndications: Other autoimmune hemolytic anemia (HCC),Anemia in stage 3a chronic kidney disease (HCC),Iron deficiency anemia due to sideropenic dysphagia Take 1 tablet by mouth once daily 30 Tablet 2 Active apixaban (Eliquis) 5 MG TabletIndications: Prophylaxis of Venous Thromboembolism Take 1 Tablet by mouth 2 times daily. Indications: Prevention of Unwanted Clot in Veins 14 Tablet 025 Active SV Iron 325 (65 Fe) MG Tablet Take 1 tablet by mouth once daily 30 Tablet 024 2023 Discontinued apixaban (Eliquis) 5 MG TabletIndications: Prophylaxis of Venous Thromboembolism Take 1 Tablet by mouth 2 times daily. Indications: Prevention of Unwanted Clot in Veins 024 2024 Discontinued(R eorder) Active Problems Patient Care Coordination No te Formatting of this note migh t be different from the original. 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 05/23/2017 Encounters Date Type Department Care Team Description 04/01/2024 11:30 AM INSET CUTTER Clinical Support [facility] [address] [phone] Nurse, Cc [facility] Other autoimmune hemolytic anemia (HCC) 04/01/2024 Travel 03/30/2024 Telephone [facility] [address] [phone] Kev Moser MD 03/26/2024 Refill [facility] [address] [phone] Kev Moser MD Medication Refill 03/10/2024 11:30 AM INSET CUTTER Clinical Support [facility] [address] [phone] Nurse, Cc [facility] Vitamin B 12 deficiency (Primary Dx) 03/10/2024 11:15 AM INSET CUTTER Office Visit [facility] [address] [phone] Tanvi Tobar APRN, VP OF TECHNOLOGY Anemia in stage 3a chronic kidney disease (HCC) (Primary Dx); Stage 3a chronic kidney disease (HCC); Vitamin B 12 deficiency 03/10/2024 11:00 AM INSET CUTTER Lab [facility] [address] [phone] Lab, [facility] Iron deficiency anemia due to sideropenic dysphagia; Other autoimmune hemolytic anemia (HCC); Stage 3a chronic kidney disease (HCC) 03/10/2024 Travel 03/01/2024 1:45 PM INSET CUTTER Clinical Support [facility] [address] [phone] Nurse, Cc [place] Other autoimmune hemolytic anemia (HCC) 03/01/2024 Travel 02/28/2024 Refill [facility] [address] [phone] Kev Moser MD Medication Refill 02/11/2024 11:30 AM INSET CUTTER Clinical Support [facility] [address] [phone] Nurse, Cc [place] Vitamin B 12 deficiency (Primary Dx) 02/11/2024 11:25 AM INSET CUTTER Lab [facility] [address] [phone] Lab, Cc [place] Iron deficiency anemia due to sideropenic dysphagia; Other autoimmune hemolytic anemia (HCC); Stage 3a chronic kidney disease (HCC) 02/11/2024 Travel 02/02/2024 12:00 PM INSET CUTTER Clinical Support [facility] [address] [phone] Nurse, Cc [place] Other autoimmune hemolytic anemia (HCC) 02/02/2024 Travel 01/30/2024 Refill [facility] [address] [phone] Kev Moser MD Medication Refill 01/14/2024 11:30 AM CDT Clinical Support [facility] [address] [phone] Nurse, Cc [facility] Vitamin B 12 deficiency (Primary Dx); Stage 3a chronic kidney disease (HCC) 01/14/2024 11:15 AM CDT Office Visit [facility] [address] [phone] Kev Moser MD 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); Other autoimmune hemolytic anemia (HCC); Stage 3a chronic kidney disease (HCC) 01/14/2024 11:10 AM CDT Lab [facility] [address] [phone] Lab, [facility] [place] Stage 3a chronic kidney disease (HCC) 01/14/2024 Travel 01/06/2024 11:00 AM CDT Clinical Support [facility] [address] [phone] Nurse, Cc [place] Other autoimmune hemolytic anemia (HCC) 01/06/2024 Travel 01/05/2024 Telephone [facility] [address] [phone] Kev Moser MD from Last 3 Months Immunizations Immunization Administration Dates Next Due Covid-19, Mrna, Lnp-s, PF, 1 00 mcg/0.5 mL Dose (Moderna) 05/13/2020 Influenza Vaccine 03/14/2014 Influenza Vaccine, Quadrivalent, PF 02/03/2019,0 12/25/2017 Influenza Vaccine,unspecified Formulation 2019 Influenza, Injectable, Quadrivalent 05/13/2020 Influenza, Quadrivalent, Adjuvanted 12/27/2019 Influenza, high-dose, trivalent, PF 01/30/2018 Sars-cov-2 (Covid-19) Vaccine, Unspecified 05/13 Family History Medical History Relation Name Comments Cancer Brother small cell fast moving ca, lungs to brain Congestive Heart Failure Father Diabetes Sister Kidney Disease Sister Relation Name Status Comments Brother Father Sister Social History Tobacco Use Types Packs/Day [...] on file Legal Sex Male 3:42 PM INSET CUTTER Gender Identity Not on file Sexual Orientation Not on file Last Filed Vital Signs Vital Sign Reading Time Taken Comments Blood Pressure 120/76 03/10/2024 11:21 AM INSET CUTTER Pulse 68 03/10/2024 11:21 AM INSET CUTTER Temperature 36.9 ??C (98.5 ??F) 03/10/2024 11:[address] Respiratory Rate 18 03/10/2024 11:21 AM INSET CUTTER Oxygen Saturation 95% 03/10/2024 11:21 AM INSET CUTTER Inhaled Oxygen Concentration - - Weight 107.5 kg (237 lb) 03/10/2024 11:21 AM INSET CUTTER Height 165.1 cm (5' 5 ) 03/10/2024 11:21 AM INSET CUTTER Body Mass Index 39.44 03/10/2024 11:21 AM INSET CUTTER Plan of Treatment Upcoming Encounters Date Type Department Care Team (Late st Contact Info) Description 04/07/2024 11:10 AM INSET CUTTER Lab [facility] [address] [phone] Lab, [facility] 04/07/2024 11:15 AM INSET CUTTER Clinical Support [facility] [address] [phone] Nurse, Cc [facility] 05/12/2024 11:00 AM INSET CUTTER Lab [facility] [address] [phone] Lab, [facility] 05/12/2024 11:15 AM INSET CUTTER Office Visit [facility] [address] [phone] Kev Moser MD [address] [place] [phone] 05/12/2024 11:30 AM INSET CUTTER Clinical Support [facility] [address] [phone] Nurse, [facility] Health Maintenance Due Date Last Done Comments Hepatitis C Virus (HCV) Screening 1955 TdaP Immunization 1955 Zoster Immunization (1 of 2) 1973 Cologuard 02/14/2004 Immunochemical Fecal Occult Blood 02/14/2004 Respiratory Syncytial Virus (RSV) Immunization (Adult) (1 - Risk 60-74 years 1-dose series) 2014 AAA Screening Ultrasound 2019 Pneumococcal Immunization (50+ years) (2 of 2 - PPSV23) 04/06/2021 02/09/2021 Influenza Immunization (#1) 11/30/202301/30, 02/09/2021, 05/13/2020, Additional history exists SARS-COV-2 Immunization ( season) 2023 02/09/2021, 07/11/2020, 05/13/2020, Additional history exists Lung Cancer Screening 02/04/2025 02/05/2024 Colonoscopy 10/19/2031 10/18/2021, 10/18/2021 Colorectal Cancer Screening 10/19/2031 10/18/2021, 10/18/2021 Pneumococcal Immunization Combined Discontinued 02/09/2021 Hepatitis B Immunization Aged Out No longer eligible based on patient's age to complete this topic Meningococcal Immunization (ACWY) Aged Out No longer eligible based on patient's age to complete this topic Rotavirus Immunization Aged Out No lo nger eligible based on patient's age to complete this topic Procedures Procedure Name Priority Date/Time Associated Diagnosis Comments COMPLETE BLOOD COUNT (CBC) WITH DIFF Routine 03/10/2024 11:00 AM INSET CUTTER 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) Stage 3a chronic kidney disease (HCC) CMP (COMPREHENSIVE METABOLIC PANEL) Routine 03/10/2024 11:00 AM INSET CUTTER 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) Stage 3a chronic kidney disease (HCC) LACTATE DEHYDROGENASE (LD) Routine 03/10/2024 11:00 AM INSET CUTTER 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) Stage 3a chronic kidney disease (HCC) VITAMIN B12 Routine 03/10/2024 11:00 AM INSET CUTTER 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) Stage 3a chronic kidney disease (HCC) FOLIC ACID (FOLATE) Routine 03/10/2024 1 1:00 AM INSET CUTTER 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) Stage 3a chronic kidney disease (HCC) FERRITIN Routine 03/10/2024 11:00 AM INSET CUTTER 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) Stage 3a chronic kidney disease (HCC) RETICULOCYTE COUNT (RETIC) Routine 03/10/2024 11:00 AM INSET CUTTER 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) Stage 3a chronic kidney disease (HCC) IRON W/ IRON BINDING CAPACITY [place] Routine 03/10/2024 11:00 AM INSET CUTTER 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) Stage 3a chronic kidney disease (HCC) COMPLETE BLOOD COUNT (CBC) WITH DIFF Routine 02/11/2024 11:19 AM INSET CUTTER 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) Stage 3a chronic kidney disease (HCC) COMPLETE BLOOD COUNT (CBC) WITH DIFF Routine 01/14/2024 10:51 AM CDT Stage 3a chronic kidney disease (HCC) CMP (COMPREHENSIVE METABOLIC PANEL) Routine 01/14/2024 10:51 AM CDT Stage 3a chronic kidney disease (HCC) from Last 3 Months Results * IRON W/ IRON BINDING CAPACITY [place] (03/10/2024 11:00 AM INSET CUTTER) IRON 66 50 - 212 ug/dL [facility] UIBC 205 155 - 355 ug/dL [facility] TIBC 271 261 - 478 ug/dl [facility] % Saturation 24 20 - 50 % [facility] 03/10/2024 11:0 0 AM INSET CUTTER [facility] - 03/10/2024 12:06 PM INSET CUTTER Release to patient->Immediate us Kev Moser MD LAB SEND OUTS Final Resul t Performing Organization Address City/[facility] de Phone Number [facility] [place] [address], * VITAMIN B12 (03/10/2024 11:00 AM INSET CUTTER) Vitamin B12 405 180 - 914 pg/mL [facility] Blood 03/10/2024 11:0 0 [address] INSET CUT[address] N[address] [facility] - 03/11/2024 2:49 PM INSET CUTTER Release to patient->Immediate us Kev Moser MD CHEMISTRY ORDERABLES Final Result Performing Organization Address City/State/[facility] Co de Phone Number [facility] [place] [address] [place] [address], * (ABNORMAL) RETICULOCYTE COUNT (RETIC) (03/10/2024 11:00 AM INSET CUTTER) Reticulocyte count 2.14(H) 0.51 - 1.81 % [facility] RET-He 29.10 28.20 - 36.60 pg [facility] Comment: RET-He is a direct assessment of incorporation of iron into erythrocyte hemoglobin. It provides an indirect measure of the iron available for new erythropoiesis over past 2-4 days. Blood 03/10/2024 11:0 0 AM INSET CUTTER [facility] - 03/10/2024 11:15 AM INSET CUTTER Release to patient->Immediate us Kev Moser MD HEMATOLOGY ORDERABLES Final Result Performing Organization Address [facility] Co de Phone Number [facility] [address] [place] [place] [address], * LACTATE DEHYDROGENASE (LD) (03/10/2024 11:00 AM INSET CUTTER) LDH 187 140 - 271 U/L [facility] Blood 03/10/2024 11:0 0 AM INSET CUTTER [facility] - 03/10/2024 12:06 PM INSET CUTTER Release to patient->Immediate us Kev Moser MD CHEMISTRY ORDERABLES Final Result Performing Organization Address [facility] Co de Phone Number [facility] [address] [place] [place] [address], * FOLIC ACID (FOLATE) (03/10/2024 11:00 AM INSET CUTTER) Folate 12.20 >=5.90 ng/mL [facility] Blood 03/10/2024 11:0 0 AM INSET CUTTER Narrative [facility] - 03/11/2024 2:49 PM INSET CUTTER Release to patient->Immediate IS THE PATIENT REQUIRED TO BE FASTING FOR 12 HOURS?->No us Kev Moser MD CHEMISTRY ORDERABLES Final Result Performing Organization Address [facility]/ZIP Co de Phone Number [facility] [place] [address], * (ABNORMAL) FERRITIN (03/10/2024 11:00 AM INSET CUTTER) Ferritin 361(H) 24 - 336 ng/mL [facility] Blood 03/10/2024 11:0 0 AM INSET CUTTER Narrative [facility] - 03/11/2024 2:49 PM INSET CUTTER Release to patient->Immediate us Kev Moser MD CHEMISTRY ORDERABLES Final Result Performing Organization Address [facility] de Phone Number [facility] [place] [address], [place] [phone] * (ABNORMAL) CMP (COMPREHENSIVE METABOLIC PANEL) (03/10/2024 11:00 AM INSET CUTTER) Only the most recent of2 resultswithin the time period is included. Glucose 64(L) 70 - 105 mg/dL [facility] Blood Urea Nitrogen 35(H) 7 - 25 mg/dL [facility] Creatinine 2.4(H) 0.7 - 1.3 mg/dL [facility] Sodium 140 136 - 145 mEq/L [facility] Potassium 4.6 3.5 - 5.1 mEq/L [facility] Chloride 104 98 - 107 mEq/L [facility] Bicarbonate 24 21 - 31 mEq/L [facility] Total Bilirubin 0.8 0.3 - 1.0 mg/dL [facility] Alk. Phosphatase 84 34 - 104 U/L [facility] Aspartate Aminotransferase 10(L) 13 - 39 U/L [facility] Alanine Aminotransferase 10 7 - 52 U/L [facility] Total Protein 6.5 6.4 - 8.9 g/dL [facility] Albumin 4.3 3.5 - 5.7 g/dL [facility] Calcium 8.7 8.6 - 10.3 mg/dL [facility] Anion Gap 16.6(H) 7.0 - 15.0 mEq/L [facility] Globulin 2.2 2.0 - 3.5 g/dL [facility] EGFR 28(L) >60 ml/min/1. 73m2 [facility] Comment: This eGFR is calculated using 2020 CKD-EPI Creatinine equation without race modifier based on the NKF-ASN task force recommendations Blood 03/10/2024 11:0 0 AM INSET CUTTER Narr[address] [facility] - 03/10/2024 12:06 PM INSET CUTTER Release to patient->Immediate IS THE PATIENT REQUIRED TO BE FASTING FOR 8 HOURS?->No us Kev Moser MD CHEMISTRY ORDERABLES Final Result [facility] Cancer Care [facility] [place] [address], [place] [phone] * (ABNORMAL) COMPLETE BLOOD COUNT (CBC) WITH DIFF (03/10/2024 11:00 AM INSET CUTTER) Only the most recent of3 resultswithin the time period is included. WBC 6.3 4.0 - 10.0 10*3/uL [facility] HGB 11.6(L) 13.7 - 17.5 g/dL [facility] HCT 37.0(L) 40.1 - 51.0 % [facility] PLT 143(L) 163 - 369 10*3/uL [facility] MPV 9.9 9.4 - 12.[address] [facility] RBC 4.09(L) 4.63 - 6.08 10*6/uL [facility] MCV 91 79 - 95 fL [facility] MCH 28.4 25.6 - 32.2 pg [facility] MCHC 31.4(L) 32.2 - 36.5 g/dL [facility] RDW 14.1 11.6 - 14.4 % [facility] Absolute Neutrophil Count 4,836 cells/uL [facility] Absolute Seg Count 4,836 1,440 - 6,600 cells/uL [facility] Absolute Lymph Count 691(L) 760 - 4,000 cells/uL [facility] Absolute [place] Count 628 160 - 1,200 cells/uL [facility] Absolute Eos Count 63 0 - 300 cells/uL [facility] Absolute Baso Count 63 0 - 100 cells/uL [facility] Segmented Neutrophils 77(H) 36 - 66 % [facility] Lymphocytes 11(L) 19 - 40 % [facility] Monocytes 10 4 - 12 % [facility] Eosinophils 1 0 - 3 % [facility] Basophils 1 0 - 1 % [facility] WBC Estimate Normal [facility] Platelet Estimate Low [facility] RBC Morphology Normal [facility] Blood 03/10/2024 11:0 0 AM INSET CUTTER Narrative [facility] - 03/10/2024 12:53 PM INSET CUTTER Release to patient->Immediate us Kev Moser MD HEMATOLOGY ORDERABLES Final Result [facility] [address] [place] [address], from Last 3 Months Insurance MEDICARE MEDICARE [facility] [place] [id number] Care Teams Dental Laboratory Supervisor Relationship Specialty Start Date End Date Scott Oneill MD PCP - General Internal Medicine 04/29/17 Tavo Mishra MD [address] [address] Internal Medicine 04/29/17 Kev Moser MD [address] [place] [phone] Consulting Physician Oncology 02/09/20
--- OUTSIDE RECORDS SUMMARY | 2024-04-04 01:27 | XMS_ITS | Encounter Summary ---
Author Organization [employer] Care Team Providers Care Flag Car Driver Name Role Phone Scott Oneill MD Primary Care Provider [phone] Tavo Mishra MD Unavailable [phone] Kev Moser MD Unavailable [phone] Encounter Details Date Type Department Care Team (Latest Contact Info) Description 03/01/2024 Travel Social History Tobacco Use Types Packs/Day [...] on file Legal Sex Male 3:42 PM CLOTH COVERER Gender Identity Not on file Sexual Orientation Not on file documented as of this encounter Plan of Treatment Upcoming Encounters Date Type Department Care Team (Late st Contact Info) Description 04/07/2024 11:10 AM CLOTH COVERER Lab [facility] [address] [phone] Lab, [facility] 04/07/2024 11:15 AM CLOTH COVERER Clinical Support [facility] [address] [phone] Nurse, [facility] 05/12/2024 11:00 AM CLOTH COVERER Lab [facility] [address] [phone] Lab, [facility] 05/12/2024 11:15 AM CLOTH COVERER Office Visit [facility] [address] [phone] Kev Moser MD [address] [place] [phone] 05/12/2024 11:30 AM CLOTH COVERER Clinical Support [facility] [address] [phone] Nurse, [facility] documented as of this encounter Visit Diagnoses Not on filedocumented in this encounter Additional Health Concerns Assessment Noted Time PHQ-9 Depression Total Score: 0 11/25/19 21 11:34 AM CDT documented as of this encounter Care Teams Flag Car Driver Relationship Specialty Start Date End Date Scott Oneill MD PCP - General Internal Medicine 04/29/17 Tavo Mishra MD [address] [address] Internal Medicine 04/29/17 Kev Moser MD [address] [place] [phone] Consulting Physician Oncology 02/09/20 documented as of this encounter
--- OUTSIDE RECORDS SUMMARY | 2024-04-04 01:27 | XMS_ITS | Encounter Summary ---
Author Organization [facility] Address [address] [place] [address] Phone Care Team Providers Care Elementary Esl Teacher Name Role Phone Scott Oneill MD Primary Care Provider [phone] Tavo Mishra MD Unavailable [phone] Gilmer Barnard MD Unavailable [phone] Kev Moser MD Unavailable [phone] Reason for Visit * Reason Comments Other Eliquis sample dispe nse Encounter Details Date Type Department Care Team (Latest Contact Info) Description 11/05/2023 12:30 PM CDT Clinical Support [facility] [address] [phone] Nurse, [facility] Other autoimmune hemolytic anemia (HCC) Social [...] on file Legal Sex Male 3:42 PM INFORMATION STRATEGIST Gender Identity Not on file Sexual Orientation Not on file documented as of this encounter Progress Notes * Fritz Pena RN - 11/05/2023 12:30 PM CDT Dispensed: Eliquis 5 mg tablets 4 boxes given (56 tabs) LOT#: [id number] EXP: 11/2024 documented in this encounter Plan of Treatment Upcoming Encounters Date Type Department Care Team (Late st Contact Info) Description 04/07/2024 11:10 AM INFORMATION STRATEGIST Lab [facility] [address] [address] Lab, [facility] 04/07/2024 11:15 AM INFORMATION STRATEGIST Clinical Support [facility] [address] [phone] Nurse, [facility] 05/12/2024 11:00 AM INFORMATION STRATEGIST Lab [facility] [address] [address] Lab, [facility] 05/12/2024 11:15 AM INFORMATION STRATEGIST Office Visit [facility] [address] [phone] Kev Moser MD [address] [place] [phone] 05/12/2024 11:30 AM INFORMATION STRATEGIST Clinical Support [facility] [address] [phone] Nurse, [facility] documented as of this encounter Visit Diagnoses Diagnosis Other autoimmune hemolytic anemia (HCC) documented in this encounter Additional Health Concerns Assessment Noted Time PHQ-9 Depression Total Score: 0 11/25/19 21 11:34 AM CDT documented as of this encounter Care Teams Elementary Esl Teacher Relationship Specialty Start Date End Date Scott Oneill MD PCP - General Internal Medicine 04/29/17 Tavo Mishra MD [address] [address] Internal Medicine 04/29/17 Gilmer Barnard MD [address] [phone] Consulting Physician Internal Medicine 08/28/17 4 Kev Moser MD [address] [place] [phone] Consulting Physician Oncology 02/09/20 documented as of this encounter
--- OUTSIDE RECORDS SUMMARY | 2024-04-04 01:27 | XMS_ITS | Encounter Summary ---
Author Organization [facility] Address [address] [place] [address] Phone Care Team Providers Care Machine Gun Mechanic Name Role Phone Scott Oneill MD Primary Care Provider [phone] Tavo Mishra MD Unavailable [phone] Gilmer Barnard MD Unavailable [phone] Kev Moser MD Unavailable [phone] Encounter Details Date Type Department Care Team (Late st Contact Info) Description 12/03/2023 11:10 AM CDT Lab [facility] [address] [phone] Lab, [facility] Other autoimmune hemolytic anemia (HCC); Stage 3a [...] on file Legal Sex Male 3:42 PM MANAGER HVAC Gender Identity Not on file Sexual Orientation [...] st Contact Info) Description 04/07/2024 11:10 AM MANAGER HVAC Lab [facility] [address] [phone] Lab, [facility] 04/07/2024 11:15 AM MANAGER HVAC Clinical Support [facility] [address] [phone] Nurse, [facility] 05/12/2024 11:00 AM MANAGER HVAC Lab [facility] [address] [phone] Lab, [facility] 05/12/2024 11:15 AM MANAGER HVAC Office Visit [facility] [address] [phone] Kev Moser MD [address] [place] [phone] 05/12/2024 11:30 AM MANAGER HVAC Clinical Support [facility] [address] [phone] Nurse, [facility] documented as of this encounter Procedures Procedure Name Priority Date/Time Associated Diagnosis Comments CMP (COMPREHENSIVE METABOLIC PANEL) Routine 12/03/2023 10:46 AM CDT Other autoimmune hemolytic anemia (HCC) Stage 3a chronic kidney disease (HCC) COMPLETE BLOOD COUNT (CBC) WITH DIFF Routine 12/03/2023 10:46 AM CDT Other autoimmune hemolytic anemia (HCC) Stage 3a chronic kidney disease (HCC) documented in this encounter Results * (ABNORMAL) COMPLETE BLOOD COUNT (CBC) WITH DIFF (12/03/2023 10:46 AM CDT) WBC 6.2 4.0 - 10.0 10*3/uL [facility] HGB 9.7(L) 13.7 - 17.5 g/dL [facility] HCT 32.2(L) 40.1 - 51.0 % [facility] PLT 128(L) 163 - 369 10*3/uL [facility] MPV 9.7 9.4 - 12.4 fL [facility] RBC 3.40(L) 4.63 - 6.08 10*6/uL [facility] MCV 95 79 - 95 fL [facility] MCH 28.5 25.6 - 32.2 pg [facility] MCHC 30.1(L) 32.2 - 36.5 g/dL [facility] RDW 14.5(H) 11.6 - 14.4 % [facility] Absolute Neutrophil Count 4,682 cells/uL [facility] Absolute Seg Count 4,682 1,440 - 6,600 cells/uL [facility] Absolute Lymph Count 678(L) 760 - 4,000 cells/uL [facility] Absolute Alpine Count 554 160 - 1,200 cells/uL [facility] Absolute Eos Count 246 0 - 300 cells/uL [facility] Segmented Neutrophils 76(H) 36 - 66 % [facility] Lymphocytes 11(L) 19 - 40 % [facility] Monocytes 9 4 - 12 % [facility] Eosinophils 4(H) 0 - 3 % [facility] WBC Estimate Normal [facility] Platelet Estimate Low [facility] RBC Morphology Normal CANCE R SUPERVISOR [facility] Blood 12/03/2023 10:4 6 AM CDT Narrative [facility] - 12/03/2023 1:50 PM CDT Release to patient->Immediate Sindi Qiu BOW MAKER, PARKS AND RECREATION WORKER HEMATOLOGY ORDERABLES Final Result [facility] [address] [place] [address], * (ABNORMAL) CMP (COMPREHENSIVE METABOLIC PANEL) (12/03/2023 10:46 AM CDT) Glucose 84 70 - 105 mg/dL [facility] Blood Urea Nitrogen 29(H) 7 - 25 mg/dL [facility] Creatinine 2.1(H) 0.7 - 1.3 mg/dL [facility] Sodium 139 136 - 145 mEq/L [facility] Potassium 4.5 3.5 - 5.1 mEq/L [facility] Chloride 104 98 - 107 mEq/L [facility] Bicarbonate 25 21 - 31 mEq/L [facility] Total Bilirubin 0.7 0.3 - 1.0 mg/dL [facility] Alk. Phosphatase 76 34 - 104 U/L [facility] Aspartate Aminotransferase 8(L) 13 - 39 U/L [facility] Alanine Aminotransferase 7 7 - 52 U/L [facility] Total Protein 5.9(L) 6.4 - 8.9 g/dL [facility] Albumin 4.1 3.5 - 5.7 g/dL [facility] Calcium 7.7(L) 8.6 - 10.3 mg/dL [facility] Anion Gap 14.5 7.0 - 15.0 mEq/L [facility] Globulin 1.8(L) 2.0 - 3.5 g/dL [facility] EGFR 33(L) >60 ml/min/1. 73m2 [facility] Comment: This eGFR is calculated using 2020 CKD-EPI Creatinine equation without race modifier based on the NKF-ASN task force recommendations Blood 12/03/2023 10:4 6 AM CDT Narrative [facility] - 12/03/2023 11:53 AM CDT Release to patient->Immediate IS THE PATIENT REQUIRED TO BE FASTING FOR 8 HOURS?->No us Sindi Qiu APRN, PARKS AND RECREATION WORKER CHEMISTRY ORDERABLES Final Result CANCER SUPERVISOR BLASTING [facility] [address] [place] [id number], [place] [phone] documented in this encounter Visit Diagnoses Diagnosis Other autoimmune hemolytic anemia (HCC) Stage 3a chronic kidney disease (HCC) documented in this encounter Additional Health Concerns Assessment Noted Time PHQ-9 Depression Total Score: 0 11/25/19 21 11:34 AM CDT documented as of this encounter Care Teams Machine Gun Mechanic Relationship Specialty Start Date End Date Scott Oneill MD PCP - General Internal Medicine 04/29/17 Tavo Mishra MD [address] [place] [phone] Internal Medicine 04/29/17 Gilmer Barnard MD [address] [place] [address] Consulting Physician Internal Medicine 08/28/17 4 Kev Moser MD [address] [place] [phone] Consulting Physician Oncology 02/09/20 documented as of this encounter
--- OUTSIDE RECORDS SUMMARY | 2024-04-04 01:27 | XMS_ITS | Encounter Summary ---
Author Organization [facility] Address [address] [place] [address] Phone Care Team Providers Care Blueprinting Machine Operator Name Role Phone Scott Oneill MD Primary Care Provider [phone] Tavo Mishra MD Unavailable [phone] Kev Moser MD Unavailable [phone] Reason for Visit * Reason Comments Other Sample dispense Encounter Details Date Type Department Care Team (Latest Contact Info) Description 03/01/2024 1:45 PM MEDICAL BILLING CLERK Clinical Support [facility] [address] [phone] Nurse, [facility] Other autoimmune hemolytic anemia [...] on file Legal Sex Male 3:42 PM MEDICAL BILLING CLERK Gender Identity Not on file Sexual Orientation Not on file documented as of this encounter Progress Notes * Josephine Aleman RN - 03/01/2024 1:45 PM CST Sample dispense: Eliquis 5 mg Take 1 tablet 2 times daily 4 boxes (56 tabs) LOT: [id number] EXP: 05/2025 CAL BILLING CLERK documented in this encounter Plan of Treatment Upcoming Encounters Date Type Department Care Team (Late st Contact Info) Description 04/07/2024 11:10 AM MEDICAL BILLING CLERK Lab [facility] [address] [address] Lab, [facility] 04/07/2024 11:15 AM MEDICAL BILLING CLERK Clinical Support [facility] [address] [phone] Nurse, [facility] 05/12/2024 11:00 AM MEDICAL BILLING CLERK Lab [facility] [address] [phone] Lab, [facility] 05/12/2024 11:15 AM MEDICAL BILLING CLERK Office Visit [facility] [address] [phone] Kev Moser MD [address] [place] [phone] 05/12/2024 11:30 AM MEDICAL BILLING CLERK Clinical Support [facility] [address] [phone] Nurse, [facility] documented as of this encounter Visit Diagnoses Diagnosis Other autoimmune hemolytic anemia (HCC) documented in this encounter Additional Health Concerns Assessment Noted Time PHQ-9 Depression Total Score: 0 11/25/19 21 11:34 AM CDT documented as of this encounter Care Teams Blueprinting Machine Operator Relationship Specialty Start Date End Date Scott Oneill MD PCP - General Internal Medicine 04/29/17 Tavo Mishra MD [address] [phone] Internal Medicine 04/29/17 Kev Moser MD [address] [place] [phone] Consulting Physician Oncology 02/09/20 documented as of this encounter
--- OUTSIDE RECORDS SUMMARY | 2024-04-04 01:27 | XMS_ITS | Encounter Summary ---
Author Organization [facility] Address [address] [place] [address] Phone Care Team Providers Care Devops Engineer Name Role Phone Scott Oneill MD Primary Care Provider Tavo Mishra MD Unavailable [phone] Kev Moser MD Unavailable [phone] Encounter Details Date Type Department Care Team (Late st Contact Info) Description 03/10/2024 11:00 AM FEDERAL AGENT Lab [facility] [address] [address] Lab, [facility] Iron deficiency anemia due to sideropenic dysphagia; [...] on file Legal Sex Male 3:42 PM FEDERAL AGENT Gender Identity Not on file Sexual Orientation Not on file documented as of this encounter Functional Status * Question Answer Date of Assessment Author Little interest or pleasure in doing things Not at all 03/10/2024 11:20 AM FEDERAL AGENT Christmann, Viji A., BORDERER Feeling down, depressed, or hopeless Not at [...] st Contact Info) Description 04/07/2024 11:10 AM FEDERAL AGENT Lab [facility] [address] [address] Lab, [facility] 04/07/2024 11:15 AM FEDERAL AGENT Clinical Support [facility] [address] [phone] Nurse, [facility] 05/12/2024 11:00 AM FEDERAL AGENT Lab [facility] [address] [phone] Lab, [facility] 05/12/2024 11:15 AM FEDERAL AGENT Office Visit [facility] [address] [phone] Kev Moser MD [address] [place] [phone] 05/12/2024 11:30 AM FEDERAL AGENT Clinical Support [facility] [address] [phone] Nurse, [facility] documented as of this encounter Procedures Procedure Name Priority Date/Time Associated Diagnosis Comments IRON W/ IRON BINDING CAPACITY [place] Routine 03/10/2024 11:00 AM FEDERAL AGENT 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) Stage 3a chronic kidney disease (HCC) VITAMIN B12 Routine 03/10/2024 11:00 AM FEDERAL AGENT 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) Stage 3a chronic kidney disease (HCC) RETICULOCYTE COUNT (RETIC) Routine 03/10/2024 11:00 AM FEDERAL AGENT 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) Stage 3a chronic kidney disease (HCC) LACTATE DEHYDROGENASE (LD) Routine 03/10/2024 11:00 AM FEDERAL AGENT 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) Stage 3a chronic kidney disease (HCC) FOLIC ACID (FOLATE) Routine 03/10/2024 1 1:00 AM FEDERAL AGENT 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) Stage 3a chronic kidney disease (HCC) FERRITIN Routine 03/10/2024 11:00 AM FEDERAL AGENT 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) Stage 3a chronic kidney disease (HCC) CMP (COMPREHENSIVE METABOLIC PANEL) Routine 03/10/2024 11:00 AM FEDERAL AGENT 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 HGB 11.6(L) 13.7 - 17.5 g/dL [facility] HCT 37.0(L) 40.1 - 51.0 % [facility] PLT 143(L) 163 - 369 10*3/uL [facility] MPV 9.9 9.4 - 12.4 fL [facility] RBC 4.09(L) 4.63 - 6.08 10*6/uL [facility] MCV 91 79 - 95 fL [facility] MCH 28.4 25.6 - 32.2 pg [facility] MCHC 31.4(L) 32.2 - 36.5 g/dL [facility] RDW 14.1 11.6 - 14.4 % [facility] Absolute Neutrophil Count 4,836 cells/uL [facility] Absolute Seg Count 4,836 1,440 - 6,600 cells/uL [facility] Absolute Lymph Count 691(L) 760 - 4,000 cells/uL [facility] Absolute Thayer Count 628 160 - 1,200 cells/uL [facility] Absolute Eos Count 63 0 - 300 cells/uL [facility] Absolute Baso Count 63 0 - 100 cells/uL [facility] Segmented Neutrophils 77(H) 36 - 66 % [facility] Lymphocytes 11(L) 19 - 40 % [facility] Monocytes 10 4 - 12 % [facility] Eosinophils 1 0 - 3 % [facility] Basophils 1 0 - 1 % [facility] WBC Estimate Normal [facility] Platelet Estimate Low [facility] MINING [facility]INEER [facility] RBC Morphology Normal [facility]INE[facility] Blood 03/10/2024 11:0 0 AM FEDERAL AGENT Narrative [facility] - 03/10/2024 12:53 PM FEDERAL AGENT Release to patient->Immediate Kev Moser MD HEMATOLOGY ORDERABLES Final Result [facility] [place] [address], * (ABNORMAL) CMP (COMPREHENSIVE METABOLIC PANEL) (03/10/2024 11:00 AM FEDERAL AGENT) Glucose 64(L) 70 - 105 mg/dL [facility] Blood Urea Nitrogen 35(H) 7 - 25 mg/dL [facility] Creatinine 2.4(H) 0.7 - 1.3 mg/dL [facility] Sodium 140 136 - 145 mEq/L [facility] Potassium 4.6 3.5 - 5.1 mEq/L [facility] Chloride 104 98 - 107 mEq/L [facility] Bicarbonate 24 21 - 31 mEq/L [facility] Total Bilirubin 0.8 0.3 - 1.0 mg/dL [facility] Alk. Phosphatase 84 34 - 104 U/L [facility] Aspartate Aminotransferase 10(L) 13 - 39 U/L [facility] Alanine Aminotransferase 10 7 - 52 U/L [facility] Total Protein 6.5 6.4 - 8.9 g/dL [facility] Albumin 4.3 3.5 - 5.7 g/dL [facility] Calcium 8.7 8.6 - 10.3 mg/dL [facility] Anion Gap 16.6(H) 7.0 - 15.0 mEq/L [facility] Globulin 2.2 2.0 - 3.5 g/dL [facility] EGFR 28(L) >60 ml/min/1. 73m2 [facility] Comment: This eGFR is calculated using 2020 CKD-EPI Creatinine equation without race modifier based on the NKF-ASN task force recommendations Blood 03/10/2024 11:0 0 AM FEDERAL AGENT Prateek [facility] - 03/10/2024 12:06 PM FEDERAL AGENT Release to patient->Immediate IS THE PATIENT REQUIRED TO BE FASTING FOR 8 HOURS?->No Kev Moser MD CHEMISTRY ORDERABLES Final Result [facility] [place] [address], * LACTATE DEHYDROGENASE (LD) (03/10/2024 11:00 AM FEDERAL AGENT) LDH 187 140 - 271 U/L [facility] Blood 03/10/2024 11:0 0 AM FEDERAL AGENT Prateek [facility] - 03/10/2024 12:06 PM FEDERAL AGENT Release to patient->Immediate us Kev Moser MD CHEMISTRY ORDERABLES Final Result Performing Organization Address City/[facility]/ZIP Co de Phone Number [facility] [place] [address] [place] [address], [place] [phone] * VITAMIN B12 (03/10/2024 11:00 AM FEDERAL AGENT) Vitamin B12 405 180 - 914 pg/mL [facility] Blood 03/10/2024 11:0 0 AM FEDERAL AGENT [facility] - 03/11/2024 2:49 PM FEDERAL AGENT Release to patient->Immediate us Kev Moser MD CHEMISTRY ORDERABLES Final Result Performing Organization Address [facility] Co de Phone Number [facility]CER MINING ENGINEER [facility] [place] [address] [place] [address], [place] [phone] * FOLIC ACID (FOLATE) (03/10/2024 11:00 AM FEDERAL AGENT) Folate 12.20 >=5.90 ng/mL [facility] Blood 03/10/2024 11:0 0 AM FEDERAL AGENT [facility] - 03/11/2024 2:49 PM FEDERAL AGENT Release to patient->Immediate IS THE PATIENT REQUIRED TO BE FASTING FOR 12 HOURS?->No us Kev Moser MD CHEMISTRY ORDERABLES Final Result Performing Organization Address [facility] Co de Phone Number [facility] [place] [address] [place] [address], [place] [phone] * (ABNORMAL) FERRITIN (03/10/2024 11:00 AM FEDERAL AGENT) Ferritin 361(H) 24 - 336 ng/mL [facility] Blood 03/10/2024 11:0 0 AM FEDERAL AGENT Narrative [facility] - 03/11/2024 2:49 PM FEDERAL AGENT Release to patient->Immediate us Kev Moser MD CHEMISTRY ORDERABLES Final Result Performing Organization Address [facility] Co de Phone Number [facility] [address] [place] [address], [place] [phone] * (ABNORMAL) RETICULOCYTE COUNT (RETIC) (03/10/2024 11:00 AM FEDERAL AGENT) Reticulocyte count 2.14(H) 0.51 - 1.81 % [facility] RET-He 29.10 28.20 - 36.60 pg [facility] Comment: RET-He is a direct assessment of incorporation of iron into erythrocyte hemoglobin. It provides an indirect measure of the iron available for new erythropoiesis over past 2-4 days. Blood 03/10/2024 11:0 0 AM FEDERAL AGENT Narrative [facility] - 03/10/2024 11:15 AM FEDERAL AGENT Release to patient->Immediate us Kev Moser MD HEMATOLOGY ORDERABLES Final Result Performing Organization Address [facility] de Phone Number [facility] [address] [place] [address], [place] [phone] * IRON W/ IRON BINDING CAPACITY [place] (03/10/2024 11:00 AM FEDERAL AGENT) IRON 66 50 - 212 ug/dL [facility] UIBC 205 155 - 355 ug/dL [facility] TIBC 271 261 - 478 ug/dl [facility] % Saturation 24 20 - 50 % [facility] 03/10/2024 11:0 0 AM FEDERAL AGENT 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
--- OUTSIDE RECORDS SUMMARY | 2024-04-04 01:27 | XMS_ITS | Encounter Summary ---
Author Organization [facility] Care Team Providers Care Wastewater Plant Civil Engineer Name Role Phone Scott Oneill MD Primary Care Provider [phone] Tavo Mishra MD Unavailable [phone] Kev Moser MD Unavailable [phone] Encounter Details Date Type Department Care Team (Latest Contact Info) Description 01/14/2024 Travel Social History Tobacco Use Types Packs/Day [...] on file Legal Sex Male 3:42 PM DIRECTOR HEART Gender Identity Not on file Sexual Orientation Not on file documented as of this encounter Functional Status * Question Answer Date of Assessment Author Little interest or pleasure in doing things Not at all 01/14/2024 10:54 AM Viji Kennedy LPN Feeling down, depressed, or hopeless Not at all 01/14/2024 10:54 AM Viji Kennedy LPN * Over the past 2 weeks, how often have you been bothered by any of the following problems? Question Answer Date of Assessment Author Patient Health Questionnaire-2 Score 0 01/14/2024 10:54 AM Theresa Kennedy LPN documented as of this encounter Plan of Treatment Upcoming Encounters Date Type Department Care Team (Late st Contact Info) Description 04/07/2024 11:10 AM DIRECTOR HEART Lab [facility] [address] [phone] Lab, [facility] 04/07/2024 11:15 AM DIRECTOR HEART Clinical Support [facility] [address] [phone] Nurse, [facility] 05/12/2024 11:00 AM DIRECTOR HEART Lab [facility] [address] [phone] Lab, [facility] 05/12/2024 11:15 AM DIRECTOR HEART Office Visit [facility] [address] [phone] Kev Moser MD [address] [place] [phone] 05/12/2024 11:30 AM DIRECTOR HEART Clinical Support [facility] [address] [phone] Nurse, [facility] documented as of this encounter Visit Diagnoses Not on filedocumented in this encounter Additional Health Concerns Assessment Noted Time PHQ-9 Depression Total Score: 0 11/25/19 21 11:34 AM CDT documented as of this encounter Care Teams Wastewater Plant Civil Engineer Relationship Specialty Start Date End Date Scott Oneill MD PCP - General Internal Medicine 04/29/17 Tavo Mishra MD [address] [address] Internal Medicine 04/29/17 Kev Moser MD [address] [place] [phone] Consulting Physician Oncology 02/09/20 documented as of this encounter
--- OUTSIDE RECORDS SUMMARY | 2024-04-04 01:27 | XMS_ITS | Encounter Summary ---
Author Organization [facility] Address [address] [place] [address] Phone Care Team Providers Care Jinrikisha Driver Name Role Phone Scott Oneill MD Primary Care Provider [phone] Tavo Mishra MD Unavailable [phone] Kev Moser MD Unavailable [phone] Reason for Visit * Reason Comments Medication Refill Encounter Details Date Type Department Care Team (Late st Contact Info) Description 02/28/2024 Refill [facility] [address] [place] [address] Kev Moser MD [address] [place] [address] Medication Refill Social History Tobacco [...] on file Legal Sex Male 3:42 PM HULL BUILDER Gender Identity Not on file Sexual Orientation Not on file documented as of this encounter Miscellaneous Notes * Telephone Encounter - Xochitl Campos RN - 03/01/2024 8:08 AM CST Refill request from pharmacy. Please fill if appropriate. BUILDER documented in this encounter Plan of Treatment Upcoming Encounters Date Type Department Care Team (Late st Contact Info) Description 04/07/2024 11:10 AM HULL BUILDER Lab [facility] [address] [address] Lab, [facility] 04/07/2024 11:15 AM HULL BUILDER Clinical Support [facility] [address] [phone] Nurse, [facility] 05/12/2024 11:00 AM HULL BUILDER Lab [facility] [address] [address] Lab, [facility] 05/12/2024 11:15 AM HULL BUILDER Office Visit [facility] [address] [phone] Kev Moser MD [address] [place] [phone] 05/12/2024 11:30 AM HULL BUILDER Clinical Support [facility] [address] [phone] Nurse, [facility] documented as of this encounter Visit Diagnoses Not on filedocumented in this encounter Additional Health Concerns Assessment Noted Time PHQ-9 Depression Total Score: 0 11/25/19 21 11:34 AM CDT documented as of this encounter Care Teams Jinrikisha Driver Relationship Specialty Start Date End Date Scott Oneill MD PCP - General Internal Medicine 04/29/17 Tavo Mishra MD [address] [address] Internal Medicine 04/29/17 Kev Moser MD [address] [place] [phone] Consulting Physician Oncology 02/09/20 documented as of this encounter
--- OUTSIDE RECORDS SUMMARY | 2024-04-04 01:27 | XMS_ITS | Encounter Summary ---
Author Organization [employer] Care Team Providers Care Er Manager Name Role Phone Scott Oneill MD Primary Care Provider [phone] Tavo Mishra MD Unavailable [phone] Gilmer Barnard MD Unavailable [phone] Kev Moser MD Unavailable [phone] Encounter Details Date Type Department Care Team (Latest Contact Info) Description 11/05/2023 Travel Social History Tobacco Use Types Packs/Day [...] on file Legal Sex Male 3:42 PM BENDING MACHINE OPERATOR Gender Identity Not on file Sexual Orientation Not on file documented as of this encounter Plan of Treatment Upcoming Encounters Date Type Department Care Team (Late st Contact Info) Description 04/07/2024 11:10 AM BENDING MACHINE OPERATOR Lab [facility] [address] [phone] Lab, [facility] 04/07/2024 11:15 AM BENDING MACHINE OPERATOR Clinical Support [facility] [address] [phone] Nurse, [facility] 05/12/2024 11:00 AM BENDING MACHINE OPERATOR Lab [facility] [address] [phone] Lab, [facility] 05/12/2024 11:15 AM BENDING MACHINE OPERATOR Office Visit [facility] [address] [phone] Kev Moser MD [address] [place] [phone] 05/12/2024 11:30 AM BENDING MACHINE OPERATOR Clinical Support [facility] [address] [phone] Nurse, [facility] documented as of this encounter Visit Diagnoses Not on filedocumented in this encounter Additional Health Concerns Assessment Noted Time PHQ-9 Depression Total Score: 0 11/25/19 21 11:34 AM CDT documented as of this encounter Care Teams Er Manager Relationship Specialty Start Date End Date Scott Oneill MD PCP - General Internal Medicine 04/29/17 Tavo Mishra MD [address] [address] Internal Medicine 04/29/17 Gilmer Barnard MD [address] [address] Consulting Physician Internal Medicine 08/28/17 4 Kev Moser MD [address] [place] [phone] Consulting Physician Oncology 02/09/20 documented as of this encounter
--- OUTSIDE RECORDS SUMMARY | 2024-04-04 01:27 | XMS_ITS | Encounter Summary ---
Author Organization [facility] Address [address] [place] [address] Phone Care Team Providers Care Computer Repair Instructor Name Role Phone Scott Oneill MD Primary Care Provider Tavo Mishra MD Unavailable [phone] Kev Moser MD Unavailable [phone] Reason for Visit * Reason Comments Other ELIQUIS SAMPLE DISPE NSE Encounter Details Date Type Department Care Team (Latest Contact Info) Description 01/06/2024 11:00 AM CDT Clinical Support [facility] [address] [phone] Nurse, [facility] Other autoimmune hemolytic anemia (HCC) [...] on file Legal Sex 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 4 BOXES GIVEN (56 TABS) LOT#:[id number] EXP: 02/2025 X2 LOT: [id number] EXP: 12/2024 x2 documented in this encounter Plan of Treatment Upcoming Encounters Date Type Department Care Team (Late st Contact Info) Description 04/07/2024 11:10 AM DISTRIBUTOR ADVERTISING MATERIAL Lab [facility] [address] [address] Lab, [facility] 04/07/2024 11:15 AM DISTRIBUTOR ADVERTISING MATERIAL Clinical Support [facility] [address] [phone] Nurse, [facility] 05/12/2024 11:00 AM DISTRIBUTOR ADVERTISING MATERIAL Lab [facility] [address] [phone] Lab, [facility] 05/12/2024 11:15 AM DISTRIBUTOR ADVERTISING MATERIAL Office Visit [facility] [address] [phone] Kev Moser MD [address] [place] [phone] 05/12/2024 11:30 AM DISTRIBUTOR ADVERTISING MATERIAL Clinical Support [facility] [address] [phone] Nurse, [facility] documented as of this encounter Visit Diagnoses Diagnosis Other autoimmune hemolytic anemia (HCC) documented in this encounter Additional Health Concerns Assessment Noted Time PHQ-9 Depression Total Score: 0 11/25/19 21 11:34 AM CDT documented as of this encounter Care Teams Computer Repair Instructor Relationship Specialty Start Date End Date Scott Oneill MD PCP - General Internal Medicine 04/29/17 Tavo Mishra MD [address] [address] Internal Medicine 04/29/17 Kev Moser MD [address] [place] [phone] Consulting Physician Oncology 02/09/20 documented as of this encounter
--- OUTSIDE RECORDS SUMMARY | 2024-04-04 01:27 | XMS_ITS | Encounter Summary ---
Author Organization [facility] Address [address] [place] [address] Phone Care Team Providers Care Vocational Case Manager Name Role Phone Scott Oneill MD Primary Care Provider Tavo Mishra MD Unavailable [phone] Gilmer Barnard MD Unavailable [phone] Kev Moser MD Unavailable Reason for Visit * Reason Comments Follow-up Encounter Details Date Type Department Care Team (Late st Contact Info) Description 12/03/2023 11:15 AM CDT Office Visit [facility] [address] [place] [address] Kev Moser MD [address] [place] [phone] Stage 3a chronic kidney disease (HCC) (Primary Dx); Other autoimmune hemolytic anemia (HCC) Social History [...] on file 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 Gender Identity Not on file Sexual Orientation Not on file documented as of this encounter Last Filed Vital Signs Vital Sign Reading Time Taken Comments Blood Pressure 128/64 12/03/2023 10:57 AM CDT Pulse 61 12/03/2023 10:57 AM CDT Temperature 37 ??C (98.6 ??F) 12/03/2023 10: 57 AM CDT Respiratory Rate 18 12/03/2023 10:5 7 AM CDT Oxygen Saturation 98% 12/03/2023 10: 57 AM CDT Inhaled Oxygen Concentration - - Weight 104.5 kg (230 lb 6.4 oz) 024 10:57 AM CDT Height 165.1 cm (5' 5 ) 12/03/2023 10:5 7 AM CDT Body Mass Index 38.34 12/03/2023 10:57 AM CDT documented in this encounter Functional Status * Question Answer Date of Assessment Author Little interest or pleasure in doing things Not at all 12/03/2023 10:53 AM CDT Rhonad Manrique PEDIATRIC RADIOLOGIST Feeling down, depressed, or hopeless Not at all 12/03/2023 10:53 AM CDT Rhonda Manrique PEDIATRIC RADIOLOGIST * Over the past 2 weeks, how often have you been bothered by any of the following problems? Question Answer Date of Assessment Author Patient Health Questionnaire -2 Score 0 12/03/2023 10:53 AM CDT Rhonda Manrique PEDIATRIC RADIOLOGIST documented as of this encounter Progress Notes * Kev Moser MD - 12/03/2023 11:15 AM CDT Images from the original note were not included. Patient: Britton Nielsen Age: 68 y.o. : 1955 [facility] Encounter Date: 12/03/2023 Care Team: Current Providers PCP: Scott Oneill MD Care Team Provider: Tavo Mishra MD Care Team Provider: Gilmer Barnard MD Care Team Provider: Kev Moser MD Encounter Provider: Kev Moser MD Referring Provider: not found Consulting Physician: Kev Moser MD HISTORY OF PRESENT ILLNESS: Britton returns. We are going to start him back on EPO in two weeks. He will get EPO and B12 q.2 weeks. He remains on CellCept 500 mg b.i.d. He is following with [facility] providers and scheduled to see Dr. Braun of Rheumatology. DIAGNOSIS: 1. Glomerulonephritis, sclerosing (renal biopsy 04/01/17). [...] PAST TREATMENT: 1. Gastroduodenal artery embolization at [facility] 05/2017. 2. Cytoxan 100 mg daily. 3. 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 PLAN: 1. Return in two weeks and get EPO, B12 and dispense Eliquis today. 2. Okay to stay on CellCept as needed and we can try to boost his hemoglobin. 3. I will see him back in six weeks for a second dose. We will follow his CBC monthly. If he is able to get bloodwork elsewhere, we can follow that. He needs bloodwork within seven days of EPO shot. TIME SPENT: REVIEW OF SYSTEMS: See HPI; [...] reviewed per Care Everywhere. Kev Moser MD, [facility] Vitals: Vitals: 12/03/23 1057 BP: 128/64 BP Location: Left Arm BP Position: Sitting BP Cuff Size: Regular Pulse: 61 Resp: 18 Temp: 98.6 ??F (37 ??C) TempSrc: Temporal SpO2: 98% Weight: 230 lb 6.4 oz (104.5 kg) Height: 5' 5 (1.651 m) Body surface area is 2.19 meters squared. Body mass index is 38.34 kg/m??. Pain Score: 0 - No pain Allergies: No Known Allergies PMH/SgH/FH/SH: Past medical, [...] Current Medications: Outpatient Encounter Medications as of 12/03/2023 Medication Sig Dispense Refill albuterol 108 (90 [...] taking: Reported on 12/03/2023) ergocalciferol (VITAMIN D) 70194 UNIT Capsule Take 50,000 Units by mouth [...] facility-administered encounter medications on file as of 12/03/2023. Labs: Lab on 12/03/2023 Component Date Value Ref Range Status WBC 12/03/2023 6.2 4.0 - 10.0 10*3/uL Final HGB 12/03/2023 9.7 (L) 13.7 - 17.5 g/dL Final HCT 12/03/2023 32.2 (L) 40.1 - 51.0 % Final PLT 12/03/2023 128 (L) 163 - 369 10*3/uL Final MPV 12/03/2023 9.7 9.4 - 12.4 fL Final RBC 12/03/2023 3.40 (L) 4.63 - 6.08 10*6/uL Final MCV 12/03/2023 95 79 - 95 fL Final MCH 12/03/2023 28.5 25.6 - 32.2 pg Final MCHC 12/03/2023 30.1 (L) 32.2 - 36.5 g/dL Final RDW 12/03/2023 14.5 (H) 11.6 - 14.4 % Final documented in this encounter Plan of Treatment Upcoming Encounters Date Type Department Care Team (Late st Contact Info) Description 04/07/2024 11:10 AM TIGER MACHINE OPERATOR Lab [facility] [address] [phone] Lab, [facility] 04/07/2024 11:15 AM TIGER MACHINE OPERATOR Clinical Support [facility] [address] [phone] Nurse, [facility] 05/12/2024 11:00 AM TIGER MACHINE OPERATOR Lab [facility] [address] [phone] Lab, [facility] 05/12/2024 11:15 AM TIGER MACHINE OPERATOR Office Visit [facility] [address] [phone] Kev Moser MD [address] [place] [phone] 05/12/2024 11:30 AM TIGER MACHINE OPERATOR Clinical Support [facility] [address] [phone] Nurse, [facility] documented as of this encounter Results * (ABNORMAL) CMP (COMPREHENSIVE METABOLIC PANEL) (01/14/2024 10:51 AM CDT) Glucose 141(H) 70 - 105 mg/dL [facility] Blood Urea Nitrogen 31(H) 7 - 25 mg/dL [facility] Creatinine 2.1(H) 0.7 - 1.3 mg/dL [facility] Sodium 141 136 - 145 mEq/L [facility] Potassium 4.7 3.5 - 5.1 mEq/L [facility] Chloride 108(H) 98 - 107 mEq/L [facility] Bicarbonate 20(L) 21 - 31 mEq/L [facility] Total Bilirubin 0.7 0.3 - 1.0 mg/dL [facility] Alk. Phosphatase 79 34 - 104 U/L [facility] Aspartate Aminotransferase 11(L) 13 - 39 U/L [facility] Alanine Aminotransferase 10 7 - 52 U/L [facility] Total Protein 6.1(L) 6.4 - 8.9 g/dL [facility] Albumin 4.1 3.5 - 5.7 g/dL [facility] Calcium 8.0(L) 8.6 - 10.3 mg/dL [facility] Anion Gap 17.7(H) 7.0 - 15.0 mEq/L [facility] Globulin 2.0 2.0 - 3.5 g/dL [facility] EGFR 33(L) >60 ml/min/1. 73m2 [facility] Comment: This eGFR is calculated using 2020 CKD-EPI Creatinine equation without race modifier based on the NKF-ASN task force recommendations Blood 01/14/2024 10:5 1 AM CDT Narrative [facility] - 01/14/2024 11:35 AM CDT Release to patient->Immediate IS THE PATIENT REQUIRED TO BE FASTING FOR 8 HOURS?->No Kev Moser MD CHEMISTRY ORDERABLES Final Result [facility] [place] [address], [place] [phone] * (ABNORMAL) COMPLETE BLOOD COUNT (CBC) WITH DIFF (01/14/2024 10:51 AM CDT) WBC 3.3(L) 4.0 - 10.0 10*3/uL [facility] HGB 10.8(L) 13.7 - 17.5 g/dL [facility]PER[facility] HCT 36.4(L) 40.1 - 51.0 % [facility] PLT 123(L) 163 - 369 10*3/uL [facility] MPV 10.4 9.4 - 12.4 fL [facility] RBC 3.73(L) 4.63 - 6.08 10*6/uL [facility] MCV 98(H) 79 - 95 fL [facility] MCH 29.0 25.6 - 32.2 pg [facility] MCHC 29.7(L) 32.2 - 36.5 g/dL [facility] RDW 13.7 11.6 - 14.4 % [facility] Absolute Neutrophil Count 2,498 cells/uL [facility] Absolute Seg Count 2,498 1,440 - 6,600 cells/uL [facility] Absolute Lymph Count 433(L) 760 - 4,000 cells/uL [facility] Absolute Churchill Count 366 160 - 1,200 cells/uL [facility] Absolute Eos Count 33 0 - 300 cells/uL [facility] Segmented Neutrophils 75(H) 36 - 66 % [facility] Lymphocytes 13(L) 19 - 40 % [facility]TER [facility] Monocytes 11 4 - 12 % [facility] TER [facility] Eosinophils 1 0 - 3 % [facility] WBC Estimate Low [facility] Platelet Estimate Low [facility] RBC Morphology Abnormal CANCE R SUPER[facility]OR [facility] Macrocytosis 1+ [facility] Blood 01/14/2024 10:5 1 AM CDT Narrative [facility] SUPER[facility] - 01/14/2024 12:34 PM CDT Release to patient->Immediate Kev Moser MD HEMATOLOGY ORDERABLES Final Result Performing Organization Address City/State/[facility] [[email or web address]] Co de Phone Number CANCER SUPERVISOR [facility] [address] [place] [address], documented in this encounter Visit Diagnoses Diagnosis Stage 3a chronic kidney disease (HCC)- Primary Other autoimmune hemolytic anemia (HCC) Stage 3a chronic kidney disease (HCC) documented in this encounter Additional Health Concerns Assessment Noted Time PHQ-9 Depression Total Score: 0 11/25/19 21 11:34 AM CDT documented as of this encounter Care Teams Vocational Case Manager Relationship Specialty Start Date End Date Scott Oneill MD PCP - General Internal Medicine 04/29/17 Tavo Mishra MD [address] [place], [place] [phone] Internal Medicine 04/29/17 Gilmer Barnard MD [address] [place] [phone] Consulting Physician Internal Medicine 08/28/17 4 Kev Moser MD [address] [place] [phone] Consulting Physician Oncology 02/09/20 documented as of this encounter
--- OUTSIDE RECORDS SUMMARY | 2024-04-04 01:27 | XMS_ITS | Encounter Summary ---
Author Organization [facility] Address [address] [place] [address] Phone Care Team Providers Care Dentist/Owner Name Role Phone Scott Oneill MD Primary Care Provider [phone] Tavo Mishra MD Unavailable [phone] Kev Moser MD Unavailable [phone] Reason for Visit * Reason Comments Therapeutic Injection * Episode Based Medications (Routine) - Authorized Specialty Diagnoses / Procedures Referred By Contac t Referred To Contact Diagnoses Stage 3a chronic kidney disease (HCC) Procedures ARANESP 1 MCG NON ESRD INJ Kev Moser MD [address] [place] [phone] Phone: tel: fax: [facility] [address] [address] Phone: tel: fax: Referral ID Status Reason Start Date Expiration Date V isits Requested Visits Authorized [id number] Authorized 12/03/2023 03/30/2026 1 1 Encounter Details Date Type Department Care Team (Latest Contact Info) Description 01/14/2024 11:30 AM CDT Clinical Support [facility] [address] [phone] Nurse, [facility] Vitamin B 12 deficiency (Primary Dx); Stage 3a chronic kidney disease (HCC) Social [...] on file 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 Patient's performance status has not changed since arrival to clinic. Patient discharged ambulatory unaccompanied. documented in this encounter Plan of Treatment Upcoming Encounters Date Type Department Care Team (Late st Contact Info) Description 04/07/2024 11:10 AM BARKER OPERATOR Lab [facility] [address] [phone] [facility] 04/07/2024 11:15 AM BARKER OPERATOR Clinical Support [facility] [address] [phone] Nurse, [facility] 05/12/2024 11:00 AM BARKER OPERATOR Lab [facility] [address] [phone] Lab, [facility] 05/12/2024 11:15 AM BARKER OPERATOR Office Visit [facility] [address] [phone] Kev Moser MD [address] [place] [phone] 05/12/2024 11:30 AM BARKER OPERATOR Clinical Support [facility] [address] [phone] Nurse, [facility] documented as of this encounter Visit Diagnoses Diagnosis Vitamin B 12 deficiency- Primary Other B-complex deficiencies Stage 3a chronic kidney disease (HCC) documented in this encounter Administered Medications Inactive Administered Medications - up to 3 most recent administrations Medication Order MAR Action Action Date Dose Rate Site cyanocobalamin (VITAMIN B-12) injection 1,000 mcg 1,000 mcg, Subcutaneous, ONCE, 1 dose, On Fri01/14/24 at 1230, To be given 1 week prior to Chemotherapy. Route IM or SUBQ.Indications:Vitam in B 12 deficiency Given 01/14/2024 12:08 PM CDT 1,000 mcg Left Lateral Upper Arm darbepoetin live (ARANESP) injection 100 mcg 100 mcg, Subcutaneous, ONCE, 1 dose, On Fri01/14/24 at 1230Indications:Stage 3a chronic kidney disease (HCC) Given 01/14/2024 12:10 PM CDT 100 mcg Right Lateral Upper Arm documented in this encounter Additional Health Concerns Assessment Noted Time PHQ-9 Depression Total Score: 0 11/25/19 21 11:34 AM CDT documented as of this encounter Care Teams Dentist/Owner Relationship Specialty Start Date End Date Scott Oneill MD PCP - General Internal Medicine 04/29/17 Tavo Mishra MD [address] [place] [phone] Internal Medicine 04/29/17 Kev Moser MD [address] [place] [phone] Consulting Physician Oncology 02/09/20 documented as of this encounter
--- OUTSIDE RECORDS SUMMARY | 2024-04-04 01:27 | XMS_ITS | Encounter Summary ---
Author Organization [facility] Address [address] [place] [address] Phone Care Team Providers Care Boring Machine Feeder Name Role Phone Scott Oneill MD Primary Care Provider [phone] Tavo Mishra MD Unavailable [phone] Kev Moser MD Unavailable [phone] Reason for Visit * Reason Comments Medication Refill Encounter Details Date Type Department Care Team (Late st Contact Info) Description 01/30/2024 Refill [facility] [address] [place] [address] Kev Moser MD [address] [place] [phone] Medication Refill Social History Tobacco [...] on file 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 Please fill if appropriate. documented in this encounter Plan of Treatment Upcoming Encounters Date Type Department Care Team (Late st Contact Info) Description 04/07/2024 11:10 AM BANKING SERVICES ADVISOR Lab [facility] [address] [address] Lab, [facility] 04/07/2024 11:15 AM BANKING SERVICES ADVISOR Clinical Support [facility] [address] [phone] Nurse, [facility] 05/12/2024 11:00 AM BANKING SERVICES ADVISOR Lab [facility] [address] [address] Lab, [facility] 05/12/2024 11:15 AM BANKING SERVICES ADVISOR Office Visit [facility] [address] [phone] Kev Moser MD [address] [place] [phone] 05/12/2024 11:30 AM BANKING SERVICES ADVISOR Clinical Support [facility] [address] [phone] Nurse, [facility] documented as of this encounter Visit Diagnoses Not on filedocumented in this encounter Additional Health Concerns Assessment Noted Time PHQ-9 Depression Total Score: 0 11/25/19 21 11:34 AM CDT documented as of this encounter Care Teams Boring Machine Feeder Relationship Specialty Start Date End Date Scott Oneill MD PCP - General Internal Medicine 04/29/17 Tavo Mishra MD [address] [place] [phone] Internal Medicine 04/29/17 Kev Moser MD [address] [place] [phone] Consulting Physician Oncology 02/09/20 documented as of this encounter
--- OUTSIDE RECORDS SUMMARY | 2024-04-04 01:27 | XMS_ITS | Encounter Summary ---
Author Organization [facility] Address [address] [place] [address] Phone Care Team Providers Care Linotype Machinist Name Role Phone Scott Oneill MD Primary Care Provider Tavo Mishra MD Unavailable [phone] Gilmer Barnard MD Unavailable [phone] Kev Moser MD Unavailable Encounter Details Date Type Department Care Team (Late st Contact Info) Description 10/22/2023 Telephone [facility] [address] [place] [address] Kev Moser MD [address] [place] [phone] Social History Tobacco Use Types Packs/Day [...] on file 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 Faxed lab results to bobcat driver/labor. * Telephone Encounter - Xochitl Campos RN - 10/22/2023 12:45 PM CDT Images from the original note were not included. Maricruz Shin, SKIING TEACHER, SCHEDULE ANNOUNCER Josephine Aleman RN; [facility]; Kev Moser MD26 minutes ago (12:19 PM) RD Please notify bobcat driver/labor and fax CMP results, have patient start Tums 2 tabs BID. Thanks! * Telephone Encounter - Josephine Aleman RN - 10/22/2023 12:00 PM CDT Lab called critical result Calcium 6.6 documented in this encounter Plan of Treatment Upcoming Encounters Date Type Department Care Team (Late st Contact Info) Description 04/07/2024 11:10 AM GAMEMASTER Lab [facility] [address] [phone] Lab, [facility] 04/07/2024 11:15 AM GAMEMASTER Clinical Support [facility] [address] [phone] Nurse, [facility] 05/12/2024 11:00 AM GAMEMASTER Lab [facility] [address] [phone] Lab, [facility] 05/12/2024 11:15 AM GAMEMASTER Office Visit [facility] [address] [phone] Kev Moser MD [address] [place] [phone] 05/12/2024 11:30 AM GAMEMASTER Clinical Support [facility] [address] [phone] Nurse, [facility] documented as of this encounter Visit Diagnoses Not on filedocumented in this encounter Additional Health Concerns Assessment Noted Time PHQ-9 Depression Total Score: 0 11/25/19 11:34 AM CDT documented as of this encounter Care Teams Linotype Machinist Relationship Specialty Start Date End Date Scott Oneill MD PCP - General Internal Medicine 04/29/17 Tavo Mishra MD [address] [phone] Internal Medicine 04/29/17 Gilmer Barnard MD [address] [address] Consulting Physician Internal Medicine 08/28/17 4 Kev Moser MD [address] [place] [phone] Consulting Physician Oncology 02/09/20 documented as of this encounter
--- OUTSIDE RECORDS SUMMARY | 2024-04-04 01:27 | XMS_ITS | Encounter Summary ---
Author Organization [facility] Address [address] [place] [address] Phone Care Team Providers Care Truck Jumper Name Role Phone Scott Oneill MD Primary Care Provider Tavo Mishra MD Unavailable [phone] Gilmer Barnard MD Unavailable [phone] Kev Moser MD Unavailable [phone] Encounter Details Date Type Department Care Team (Late st Contact Info) Description 11/19/2023 11:00 AM CDT Lab [facility] [address] [phone] Lab, [facility] Other autoimmune hemolytic anemia (HCC); Vitamin B 12 deficiency; Iron deficiency anemia due to sideropenic dysphagia; Stage 3a chronic kidney disease (HCC) Social [...] on file Legal Sex Male 3:42 PM WORK ORDER SORTING CLERK Gender Identity Not on file Sexual [...] Score 0 11/19/2023 10:49 AM Rhonda Wood CMA documented as of this encounter Plan of Treatment Upcoming Encounters Date Type Department Care Team (Late st Contact Info) Description 04/07/2024 11:10 AM WORK ORDER SORTING CLERK Lab [facility] [address] [phone] Lab, [facility] 04/07/2024 11:15 AM WORK ORDER SORTING CLERK Clinical Support [facility] [address] [phone] Nurse, [facility] 05/12/2024 11:00 AM WORK ORDER SORTING CLERK Lab [facility] [address] [phone] Lab, [facility] 05/12/2024 11:15 AM WORK ORDER SORTING CLERK Office Visit [facility] [address] [phone] Kev Moser MD [address] [place] [phone] 05/12/2024 11:30 AM WORK ORDER SORTING CLERK Clinical Support [facility] [address] [phone] Nurse, [facility] documented as of this encounter Procedures Procedure Name Priority Date/Time Associated Diagnosis Comments VITAMIN B12 Routine 11/19/2023 10:37 AM CDT 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 Stage 3a chronic kidney disease (HCC) LACTATE DEHYDROGENASE (LD) Routine 11/19/2023 10:37 AM CDT 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 Stage 3a chronic kidney disease (HCC) CMP (COMPREHENSIVE METABOLIC PANEL) Routine 11/19/2023 10:37 AM CDT 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 Stage 3a chronic kidney disease (HCC) COMPLETE BLOOD COUNT (CBC) WITH DIFF Routine 11/19/2023 10:37 AM CDT 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 Stage 3a chronic kidney disease (HCC) documented in this encounter Results * LACTATE DEHYDROGENASE (LD) (11/19/2023 10:37 AM CDT) LDH 157 140 - 271 U/L [facility] Blood 11/19/2023 10:3 7 AM CDT Narrative [facility] - 11/19/2023 1:07 PM CDT Release to patient->Immediate us Maricruz Shin APRN, RELATIONS DIRECTOR CHEMISTRY ORDERABLE S Final Result [facility] [place] [address], [place] [phone] * (ABNORMAL) CMP (COMPREHENSIVE METABOLIC PANEL) (11/19/2023 10:37 AM CDT) Glucose 100 70 - 105 mg/dL [facility] Blood Urea Nitrogen 32(H) 7 - 25 mg/dL [facility] Creatinine 2.2(H) 0.7 - 1.3 mg/dL [facility] Sodium 140 136 - 145 mEq/L [facility] Potassium 5.0 3.5 - 5.1 mEq/L [facility] Chloride 109(H) 98 - 107 mEq/L [facility] Bicarbonate 20(L) 21 - 31 mEq/L [facility] Total Bilirubin 0.7 0.3 - 1.0 mg/dL [facility] Alk. Phosphatase 75 34 - 104 U/L [facility] Aspartate Aminotransferase 8(L) 13 - 39 U/L [facility] Alanine Aminotransferase 7 7 - 52 U/L [facility] Total Protein 6.1(L) 6.4 - 8.9 g/dL [facility] Albumin 4.0 3.5 - 5.7 g/dL [facility] Calcium 7.7(L) 8.6 - 10.3 mg/dL [facility] Anion Gap 16.0(H) 7.0 - 15.0 mEq/L [facility] Globulin 2.1 2.0 - 3.5 g/dL [facility] EGFR 31(L) >60 ml/min/1. 73m2 [facility] Comment: This eGFR is calculated using 2020 CKD-EPI Creatinine equation without race modifier based on the NKF-ASN task force recommendations Blood 11/19/2023 10:[address] [facility] - 11/19/2023 1:06 PM CDT Release to patient->Immediate IS THE PATIENT REQUIRED TO BE FASTING FOR 8 HOURS?->No us Maricruz Shin APRN, RELATIONS DIRECTOR CHEMISTRY ORDERABLE S Final Result [facility] [place] [address], * (ABNORMAL) COMPLETE BLOOD COUNT (CBC) WITH DIFF (11/19/2023 10:37 AM CDT) WBC 5.3 4.0 - 10.0 10*3/uL [facility] HGB 9.7(L) 13.7 - 17.5 g/dL [facility] HCT 32.7(L) 40.1 - 51.0 % [facility] PLT 147(L) 163 - 369 10*3/uL [facility] MPV 9.9 9.4 - 12.4 fL [facility] RBC 3.43(L) 4.63 - 6.08 10*6/uL [facility] MCV 95 79 - 95 fL [facility] MCH 28.3 25.6 - 32.2 pg [facility] MCHC 29.7(L) 32.2 - 36.5 g/dL [facility] RDW 14.9(H) 11.6 - 14.4 % [facility] Absolute Neutrophil Count 4,253 cells/uL [facility] Absolute Seg Count 4,253 1,440 - 6,600 cells/uL [facility] Absolute Lymph Count 578(L) 760 - 4,000 cells/uL [facility] Absolute [place] Count 420 160 - 1,200 cells/uL [facility] Segmented Neutrophils 81(H) 36 - 66 % [facility] Lymphocytes 11(L) 19 - 40 % [facility] Monocytes 8 4 - 12 % [facility] WBC Estimate Normal [facility] Platelet Estimate Low [facility] RBC Morphology Abnormal CANCE R SHEET [facility] Anisocytosis 1+ [facility] Blood 11/19/2023 10:3 7 AM CDT Narrative [facility] - 11/19/2023 1:58 PM CDT Release to patient->Immediate Maricruz Shin APRN, RELATIONS DIRECTOR HEMATOLOGY ORDERABL ES Final Result [facility] [place] [address], * VITAMIN B12 (11/19/2023 10:37 AM CDT) Vitamin B12 394 180 - 914 pg/mL [facility] Blood 11/19/2023 10:3 7 AM CDT Narrative [facility] - 11/20/2023 3:13 PM CDT Release to patient->Immediate us Maricruz Shin COAL WASHER TENDER, RELATIONS DIRECTOR CHEMISTRY ORDERABLE S Final Result [facility] [place] [address], documented in this encounter Visit Diagnoses Diagnosis 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 deficiency Other B-complex deficiencies Iron deficiency anemia due to sideropenic dysphagia Stage 3a chronic kidney disease (HCC) documented in this encounter Additional Health Concerns Assessment Noted Time PHQ-9 Depression Total Score: 0 11/25/19 21 11:34 AM CDT documented as of this encounter Care Teams Truck Jumper Relationship Specialty Start Date End Date Scott Oneill MD PCP - General Internal Medicine 04/29/17 Tavo Mishra MD [address] [place] [phone] Internal Medicine 04/29/17 Gilmer Barnard MD [address] [place] [address] Consulting Physician Internal Medicine 08/28/17 4 Kev Moser MD [address] [place] [phone] Consulting Physician Oncology 02/09/20 documented as of this encounter
--- OUTSIDE RECORDS SUMMARY | 2024-04-04 01:27 | XMS_ITS | Encounter Summary ---
Author Organization [facility] Address [address] [place] [address] Phone Care Team Providers Care Cement Mixer Driver Name Role Phone Scott Oneill MD Primary Care Provider [phone] Tavo Mishra MD Unavailable [phone] Gilmer Barnard MD Unavailable [phone] Kev Moser MD Unavailable [phone] Reason for Visit * Reason Comments Patient Education * Episode Based Medications (Routine) - Authorized Specialty Diagnoses / Procedures Referred By Rocky t Referred To Contact Diagnoses Stage 3a chronic kidney disease (HCC) Procedures ARANESP 1 MCG NON ESRD INJ Kev Moser MD [address] [place] [phone] Phone: tel: fax: [facility] [address] [phone] Phone: tel: fax: Referral ID Status Reason Start Date Expiration Date V isits Requested Visits Authorized [id number] Authorized 12/03/2023 03/30/2026 1 1 Encounter Details Date Type Department Care Team (Latest Contact Info) Description 12/17/2023 11:15 AM CDT Clinical Support [facility] [address] [phone] Nurse, Gricelda WEL[facility] Vitamin B [...] on file Legal Sex Male 3:42 PM COMMERCIAL CENTER MANAGER Gender Identity Not on file Sexual Orientation Not on file documented as of this encounter Progress Notes * Polly Botello RN - 12/17/2023 11:15 AM CDT Discussed possible side effects of chemotherapy and/or immunotherapy in general and Aranesp specifically. Given verbal and written drug information, ONS/HOPA/NCODA/ACC approved (Micromedex, OCE, Chemocare,MedlinePlus or package insert), possible side effects, including, but not limited to, decreased white blood cells, red blood cells, increased risk of anemia, bruising/bleeding, infection, fatigue, blood clots, allergic reaction, respiratory changes, chills/fever, trouble breathing, coughing up blood, sore throat, irritation to injection site, blood pressure changes, heart damage, visual disturbances, stroke, heart attach, skin reaction, dizziness, and headache Discussed how to manage these sideeffects and when and how to notify the physician/clinic. Diagnosis Written information about the patient's diagnosis has been provided from Easy Tempo Patient Educationthrough patient pass or cancer.org. Goal of Therapy Supportive goal of therapy discussed and documented on consent. Follow Up Instructed on follow-up calls and physician appointment. Treatment and Symptom Management sheet given and reviewed on symptoms that should trigger a call to the clinic. Contact information given on how and when to call. Information sheet given on missed appointments and how to reschedule. Needs Assessment Nurse assessed patient's learning needs throughout session. Patient's needs, abilities and readiness to learn addressed including preferences for verbal and written information. Questions answered topatient's satisfaction. Consent Consent presented and signed prior to onset of treatment. Copy of consent given to patient. Total face to face time spent teaching was approx 15 minutes. Patient arrived for Epo Injection. B/P 136/74. Labs reviewed. Hgb 9.8 Hct 32.6 on 12/17/2023. Aranesp 100 mg ([facility] [id number]) given per subcutaneous injection. Patient tolerated well and bandaid wasapplied. Patient tolerated B12 injection well with no complaints. Bandaid applied. documented in this encounter Plan of Treatment Upcoming Encounters Date Type Department Care Team (Late st Contact Info) Description 04/07/2024 11:10 AM COMMERCIAL CENTER MANAGER Lab [facility] [address] [phone] Lab, [facility] 04/07/2024 11:15 AM COMMERCIAL CENTER MANAGER Clinical Support [facility] [address] [phone] Nurse, [facility] 05/12/2024 11:00 AM COMMERCIAL CENTER MANAGER Lab [facility] [address] [phone] Lab, [facility] 05/12/2024 11:15 AM COMMERCIAL CENTER MANAGER Office Visit [facility] [address] [phone] Kev Moser MD [address] [place] [phone] 05/12/2024 11:30 AM COMMERCIAL CENTER MANAGER Clinical Support [facility] [address] [phone] Nurse, [facility] documented as of this encounter Visit Diagnoses Diagnosis Vitamin B 12 deficiency- Primary Other B-complex deficiencies Stage 3a chronic kidney disease (HCC) documented in this encounter Administered Medications Inactive Administered Medications - up to 3 most recent administrations Medication Order MAR Action Action Date Dose Rate Site cyanocobalamin (VITAMIN B-12) injection 1,000 mcg 1,000 mcg, Subcutaneous, ONCE, 1 dose, On Fri12/17/23 at 1130, To be given 1 week prior to Chemotherapy. Route IM or SUBQ.Indications:Vitam in B 12 deficiency Given 12/17/2023 11:18 AM CDT 1,000 mcg Left Lateral Upper Arm darbepoetin live (ARANESP) injection 100 mcg 100 mcg, Subcutaneous, ONCE, 1 dose, On Fri12/17/23 at 1130Indications:Stage 3a chronic kidney disease (HCC) Given 12/17/2023 11:16 AM CDT 100 mcg Right Lateral Upper Arm documented in this encounter Additional Health Concerns Assessment Noted Time PHQ-9 Depression Total Score: 0 11/25/19 21 11:34 AM CDT documented as of this encounter Care Teams Cement Mixer Driver Relationship Specialty Start Date End Date Scott Oneill MD PCP - General Internal Medicine 04/29/17 Tavo Mishra MD [address] [place] [address] [phone] Internal Medicine 04/29/17 Gilmer Barnard MD [address] [place] [address] [phone] Consulting Physician Internal Medicine 08/28/17 4 Kev Moser MD [address] [place] [phone] Consulting Physician Oncology 02/09/20 documented as of this encounter
--- OUTSIDE RECORDS SUMMARY | 2024-04-04 01:27 | XMS_ITS | Encounter Summary ---
Author Organization [facility] Address [address] [place] [address] Phone Care Team Providers Care Economic Research Analyst Name Role Phone Scott Oneill MD Primary Care Provider [phone] Tavo Mishra MD Unavailable [phone] Kev Moser MD Unavailable [phone] Reason for Visit * Reason Comments Other ELIQUIS SAMPLE DISPE NSE Encounter Details Date Type Department Care Team (Latest Contact Info) Description 02/02/2024 12:00 PM DISPLAY DESIGNER Clinical Support [facility] [address] [phone] Nurse, [facility] Other autoimmune hemolytic anemia (HCC) Social History [...] on file Legal Sex Male 3:42 PM DISPLAY DESIGNER Gender Identity Not on file Sexual Orientation Not on file documented as of this encounter Progress Notes * Fritz Pena RN - 02/02/2024 12:00 PM CST Eliquis 5mg sample dispense Take one tablet by mouth twice daily. 4 BOXES GIVEN (56 TABS) LOT#:[id number] EXP: 05/2025 LAY DESIGNER documented in this encounter Plan of Treatment Upcoming Encounters Date Type Department Care Team (Late st Contact Info) Description 04/07/2024 11:10 AM DISPLAY DESIGNER Lab [facility] [address] [phone] Lab, [facility] 04/07/2024 11:15 AM DISPLAY DESIGNER Clinical Support [facility] [address] [phone] Nurse, [facility] 05/12/2024 11:00 AM DISPLAY DESIGNER Lab [facility] [address] [phone] Lab, [facility] 05/12/2024 11:15 AM DISPLAY DESIGNER Office Visit [facility] [address] [phone] Kev Moser MD [address] [place] [phone] 05/12/2024 11:30 AM DISPLAY DESIGNER Clinical Support [facility] [address] [phone] Nurse, [facility] documented as of this encounter Visit Diagnoses Diagnosis Other autoimmune hemolytic anemia (HCC) documented in this encounter Additional Health Concerns Assessment Noted Time PHQ-9 Depression Total Score: 0 11/25/19 21 11:34 AM CDT documented as of this encounter Care Teams Economic Research Analyst Relationship Specialty Start Date End Date Scott Oneill MD PCP - General Internal Medicine 04/29/17 Tavo Mishra MD [address] [phone] Internal Medicine 04/29/17 Kev Moser MD [address] [place] [phone] Consulting Physician Oncology 02/09/20 documented as of this encounter
--- OUTSIDE RECORDS SUMMARY | 2024-04-04 01:27 | XMS_ITS | Encounter Summary ---
Author Organization [facility] Address [address] [place] [address] Phone Care Team Providers Care Chainstitch Binder Name Role Phone Scott Oneill MD Primary Care Provider [phone] Tavo Mishra MD Unavailable [phone] Kev Moser MD Unavailable [phone] Reason for Visit * Reason Comments Therapeutic Injection * Episode Based Medications (Routine) - Authorized Specialty Diagnoses / Procedures Referred By Contac t Referred To Contact Diagnoses Vitamin B 12 deficiency Procedures VITAMIN B12 INJ RANGE DOSE 1-1,000 MCG Kev Moser MD [address] [place] [phone] Phone: tel: fax: [facility] [address] [address] Phone: tel: fax: Referral ID Status Reason Start Date Expiration Date V isits Requested Visits Authorized [id number] Authorized 03/06/2022 03/30/2027 1 1 Encounter Details Date Type Department Care Team (Latest Contact Info) Description 02/11/2024 11:30 AM ASSOCIATE DOCTOR Clinical Support [facility] [address] [phone] Nurse, Gricelda [facility] Vitamin B 12 deficiency (Primary Dx) [...] on file Legal Sex Male 3:42 PM ASSOCIATE DOCTOR Gender Identity Not on file Sexual Orientation Not on file documented as of this encounter Progress Notes * Wen Hines RN - 02/11/2024 11:30 AM CST Patient in for B12 injection and possible Aranesp. Labs today show a HGB of 11.1, so no Aranesp needed. Patient tolerated B12 injection well to left arm. Bandaid applied. Patient's performance statushas not changed since arrival to clinic. Patient discharged ambulatory unaccompanied. CIATE DOCTOR documented in this encounter Plan of Treatment Upcoming Encounters Date Type Department Care Team (Late st Contact Info) Description 04/07/2024 11:10 AM ASSOCIATE DOCTOR Lab [facility] [address] [phone] Lab, [facility] 04/07/2024 11:15 AM ASSOCIATE DOCTOR Clinical Support [facility] [address] [phone] Nurse, [facility] 05/12/2024 11:00 AM ASSOCIATE DOCTOR Lab [facility] [address] [phone] Lab, [facility] 05/12/2024 11:15 AM ASSOCIATE DOCTOR Office Visit [facility] [address] [phone] Kev Moser MD [address] [place] [phone] 05/12/2024 11:30 AM ASSOCIATE DOCTOR Clinical Support [facility] [place] [address] [place] [phone] Nurse, [place] documented as of this encounter Visit Diagnoses Diagnosis Vitamin B 12 deficiency- Primary Other B-complex deficiencies documented in this encounter Administered Medications Inactive Administered Medications - up to 3 most recent administrations Medication Order MAR Action Action Date Dose Rate Site cyanocobalamin (VITAMIN B-12) injection 1,000 mcg 1,000 mcg, Subcutaneous, ONCE, 1 dose, On Fri02/11/24 at 1230, To be given 1 week prior to Chemotherapy. Route IM or SUBQ.Indications:Vitam in B 12 deficiency Given 02/11/2024 12:15 PM ASSOCIATE DOCTOR 1,000 mcg Left Lateral Upper Arm documented in this encounter Additional Health Concerns Assessment Noted Time PHQ-9 Depression Total Score: 0 11/25/19 21 11:34 AM CDT documented as of this encounter Care Teams Chainstitch Binder Relationship Specialty Start Date End Date Scott Oneill MD PCP - General Internal Medicine 04/29/17 Tavo Mishra MD [address] [facility] [address] [place] [id number] Internal Medicine 04/29/17 Kev Moser MD [address] [place] [phone] Consulting Physician Oncology 02/09/20 documented as of this encounter
--- OUTSIDE RECORDS SUMMARY | 2024-04-04 01:27 | XMS_ITS | Encounter Summary ---
Author Organization [facility] Address [address] [place] [address] Phone Care Team Providers Care Landfill Gas Collection Operator Name Role Phone Scott Oneill MD Primary Care Provider Tavo Mishra MD Unavailable Kev Moser MD Unavailable [phone] Encounter Details Date Type Department Care Team (Late st Contact Info) Description 01/14/2024 11:10 AM CDT Lab [facility] [address] [phone] Lab, [facility] Stage 3a chronic kidney disease (HCC) Social [...] on file Legal Sex Male 3:42 PM PAINTER AIRCRAFT Gender Identity Not on file Sexual Orientation [...] Health Questionnaire-2 Score 0 01/14/2024 10:54 AM SILVERIOT Theresa Tobias LPN documented as of this encounter Plan of Treatment Upcoming Encounters Date Type Department Care Team (Late st Contact Info) Description 04/07/2024 11:10 AM PAINTER AIRCRAFT Lab [facility] [address] [address] Lab, [facility] 04/07/2024 11:15 AM PAINTER AIRCRAFT Clinical Support [facility] [address] [phone] Nurse, [facility] 05/12/2024 11:00 AM PAINTER AIRCRAFT Lab [facility] [address] [phone] Lab, [facility] 05/12/2024 11:15 AM PAINTER AIRCRAFT Office Visit [facility] [address] [phone] Kev Moser MD [address] [place] [phone] 05/12/2024 11:30 AM PAINTER AIRCRAFT Clinical Support [facility] [address] [phone] Nurse, [facility] documented as of this encounter Procedures Procedure Name Priority Date/Time Associated Diagnosis Comments CMP (COMPREHENSIVE METABOLIC PANEL) Routine 01/14/2024 10:51 AM CDT Stage 3a chronic kidney disease (HCC) COMPLETE BLOOD COUNT (CBC) WITH DIFF Routine 01/14/2024 10:51 AM CDT Stage 3a chronic kidney disease (HCC) documented in this encounter Results * (ABNORMAL) COMPLETE BLOOD COUNT (CBC) WITH DIFF (01/14/2024 10:51 AM CDT) WBC 3.3(L) 4.0 - 10.0 10*3/uL [facility] HGB 10.8(L) 13.7 - 17.5 g/dL [facility] HCT 36.4(L) 40.1 - 51.0 % [facility] PLT 123(L) 163 - 369 10*3/uL [facility] MPV 10.4 9.4 - 12.4 fL [facility] RBC 3.73(L) 4.63 - 6.08 10*6/uL [facility] MCV 98(H) 79 - 95 fL [facility] MCH 29.0 25.6 - 32.2 pg [facility] MCHC 29.7(L) 32.2 - 36.5 g/dL [facility] RDW 13.7 11.6 - 14.4 % [facility] Absolute Neutrophil Count 2,498 cells/uL [facility] Absolute Seg Count 2,498 1,440 - 6,600 cells/uL [facility] Absolute Lymph Count 433(L) 760 - 4,000 cells/uL [facility] Absolute [place] Count 366 160 - 1,200 cells/uL [facility] Absolute Eos Count 33 0 - 300 cells/uL [facility] Segmented Neutrophils 75(H) 36 - 66 % [facility] Lymphocytes 13(L) 19 - 40 % [facility] C ENTER [facility] Monocytes 11 4 - 12 % [facility]CER TESHA TER [facility] Eosinophils 1 0 - 3 % [facility] C ENTER [facility] WBC Estimate Low [facility] Platelet Estimate Low [facility] RBC Morphology Abnormal CANCE R [facility] Macrocytosis 1+ [facility] Blood 01/14/2024 10:5 1 AM CDT Narrative [facility] - 01/14/2024 12:34 PM CDT Release to patient->Immediate us Kev Moser MD HEMATOLOGY ORDERABLES Final Result [facility] [place] [address] [place] [address], * (ABNORMAL) CMP (COMPREHENSIVE METABOLIC PANEL) (01/14/2024 10:51 AM CDT) Glucose 141(H) 70 - 105 mg/dL [facility] Blood Urea Nitrogen 31(H) 7 - 25 mg/dL [facility] Creatinine 2.1(H) 0.7 - 1.3 mg/dL [facility] Sodium 141 136 - 145 mEq/L [facility] Potassium 4.7 3.5 - 5.1 mEq/L [facility] Chloride 108(H) 98 - 107 mEq/L [facility] Bicarbonate 20(L) 21 - 31 mEq/L [facility] Total Bilirubin 0.7 0.3 - 1.0 mg/dL [facility] Alk. Phosphatase 79 34 - 104 U/L [facility] Aspartate Aminotransferase 11(L) 13 - 39 U/L [facility] Alanine Aminotransferase 10 7 - 52 U/L [facility] Total Protein 6.1(L) 6.4 - 8.9 g/dL [facility] Albumin 4.1 3.5 - 5.7 g/dL [facility] Calcium 8.0(L) 8.6 - 10.3 mg/dL [facility] Anion Gap 17.7(H) 7.0 - 15.0 mEq/L [facility] Globulin 2.0 2.0 - 3.5 g/dL [facility] EGFR 33(L) >60 ml/min/1. 73m2 [facility] Comment: This eGFR is calculated using 2020 CKD-EPI Creatinine equation without race modifier based on the NKF-ASN task force recommendations Blood 01/14/2024 10:5 1 AM CDT Narrative [facility] - 01/14/2024 11:35 AM CDT Release to patient->Immediate IS THE PATIENT REQUIRED TO BE FASTING FOR 8 HOURS?->No Kev Moser MD CHEMISTRY ORDERABLES Final Result [facility] [place] [address], documented in this encounter Visit Diagnoses Diagnosis Stage 3a chronic kidney disease (HCC) documented in this encounter Additional Health Concerns Assessment Noted Time PHQ-9 Depression Total Score: 0 11/25/19 21 11:34 AM CDT documented as of this encounter Care Teams Landfill Gas Collection Operator Relationship Specialty Start Date End Date Scott Oneill MD PCP - General Internal Medicine 04/29/17 Tavo Mishra MD [address] [facility] [address] [place] [address] [phone] Internal Medicine 04/29/17 Kev Moser MD [address] [place] [phone] Consulting Physician Oncology 02/09/20 documented as of this encounter
--- OUTSIDE RECORDS SUMMARY | 2024-04-04 01:27 | XMS_ITS | Encounter Summary ---
Author Organization [facility] Care Team Providers Care Lead Ingot Molder Name Role Phone Scott Oneill MD Primary Care Provider [phone] Tavo Mishra MD Unavailable [phone] Kev Moser MD Unavailable [phone] Encounter Details Date Type Department Care Team (Latest Contact Info) Description 02/02/2024 Travel Social History Tobacco Use Types Packs/Day [...] on file Legal Sex Male 3:42 PM HOSPICE FELLOW Gender Identity Not on file Sexual Orientation Not on file documented as of this encounter Plan of Treatment Upcoming Encounters Date Type Department Care Team (Late st Contact Info) Description 04/07/2024 11:10 AM HOSPICE FELLOW Lab [facility] [address] [phone] Lab, [facility] 04/07/2024 11:15 AM HOSPICE FELLOW Clinical Support [facility] [address] [phone] Nurse, [facility] 05/12/2024 11:00 AM HOSPICE FELLOW Lab [facility] [address] [phone] Lab, [facility] 05/12/2024 11:15 AM HOSPICE FELLOW Office Visit [facility] [address] [phone] Kev Moser MD [address] [place] [phone] 05/12/2024 11:30 AM HOSPICE FELLOW Clinical Support [facility] [address] [phone] Nurse, [facility] documented as of this encounter Visit Diagnoses Not on filedocumented in this encounter Additional Health Concerns Assessment Noted Time PHQ-9 Depression Total Score: 0 11/25/19 21 11:34 AM CDT documented as of this encounter Care Teams Lead Ingot Molder Relationship Specialty Start Date End Date Scott Oneill MD PCP - General Internal Medicine 04/29/17 Tavo Mishra MD [address] [address] Internal Medicine 04/29/17 Kev Moser MD [address] [place] [phone] Consulting Physician Oncology 02/09/20 documented as of this encounter
--- OUTSIDE RECORDS SUMMARY | 2024-04-04 01:27 | XMS_ITS | Encounter Summary ---
Author Organization [facility] Address [address] [place] [address] Phone Care Team Providers Care Internal Investigator Name Role Phone Scott Oneill MD Primary Care Provider [phone] Tavo Mishra MD Unavailable [phone] Kev Moser MD Unavailable Encounter Details Date Type Department Care Team (Late st Contact Info) Description 01/05/2024 Telephone [facility] [address] [place] [address] Kev Moser MD [address] [place] [phone] Social History Tobacco Use Types Packs/Day [...] on file 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 # [phone] Eliquis samples prepped. Spoke with patient regarding samples. Patient states he will be in clinic tomorrow, 01/06/24 to pick remover samples. Appointment scheduled. documented in this encounter Plan of Treatment Upcoming Encounters Date Type Department Care Team (Late st Contact Info) Description 04/07/2024 11:10 AM OIL BURNER MECHANIC Lab [facility] [address] [phone] Lab, [facility] 04/07/2024 11:15 AM OIL BURNER MECHANIC Clinical Support [facility] [address] [phone] Nurse, Cc [facility] 05/12/2024 11:00 AM OIL BURNER MECHANIC Lab [facility] [address] [phone] Lab, [facility] 05/12/2024 11:15 AM OIL BURNER MECHANIC Office Visit [facility] [address] [phone] Kev Moser MD [address] [place] [phone] 05/12/2024 11:30 AM OIL BURNER MECHANIC Clinical Support [facility] [address] [phone] Nurse, [facility] documented as of this encounter Visit Diagnoses Not on filedocumented in this encounter Additional Health Concerns Assessment Noted Time PHQ-9 Depression Total Score: 0 11/25/19 21 11:34 AM CDT documented as of this encounter Care Teams Internal Investigator Relationship Specialty Start Date End Date Scott Oneill MD PCP - General Internal Medicine 04/29/17 Tavo Mishra MD [address] [place] [phone] Internal Medicine 04/29/17 Kev Moser MD [address] [place] [phone] Consulting Physician Oncology 02/09/20 documented as of this encounter
--- OUTSIDE RECORDS SUMMARY | 2024-04-04 01:27 | XMS_ITS | Encounter Summary ---
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 Gender Identity Not on file Sexual Orientation Not on file documented as of this encounter Plan of Treatment Upcoming Encounters Date Type Department Care Team (Late st Contact Info) Description 04/07/2024 11:10 AM LAYOUT WORKER Lab [facility] [address] [phone] Lab, [facility] 04/07/2024 11:15 AM LAYOUT WORKER Clinical Support [facility] [address] [phone] Nurse, [facility] 05/12/2024 11:00 AM LAYOUT WORKER Lab [facility] [address] [phone] Lab, [facility]c [facility] 05/12/2024 11:15 AM LAYOUT WORKER Office Visit [facility] [address] [phone] Kev Moser MD [address] [place] [phone] 05/12/2024 11:30 AM LAYOUT WORKER Clinical Support [facility] [address] [phone] Nurse, [facility] documented as of this encounter Visit Diagnoses Not on filedocumented in this encounter Additional Health Concerns Assessment Noted Time PHQ-9 Depression Total Score: 0 11/25/19 21 11:34 AM CDT documented as of this encounter Care Teams Diesel Truck Mechanic Relationship Specialty Start Date End Date Scott Oneill MD PCP - General Internal Medicine 04/29/17 Tavo Mishra MD [address] [address] Internal Medicine 04/29/17 Gilmer Barnard MD [address] [address] Consulting Physician Internal Medicine 08/28/17 4 Kev Moser MD [address] [place] [phone] Consulting Physician Oncology 02/09/20 documented as of this encounter
--- OUTSIDE RECORDS SUMMARY | 2024-04-04 01:27 | XMS_ITS | Encounter Summary ---
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 Gender Identity Not on file Sexual Orientation Not on file documented as of this encounter Plan of Treatment Upcoming Encounters Date Type Department Care Team (Late st Contact Info) Description 04/07/2024 11:10 AM SECURITY SOLUTIONS ARCHITECT Lab [facility] [address] [phone] Lab, [facility] 04/07/2024 11:15 AM SECURITY SOLUTIONS ARCHITECT Clinical Support [facility] [address] [phone] Nurse, [facility] 05/12/2024 11:00 AM SECURITY SOLUTIONS ARCHITECT Lab [facility] [address] [phone] Lab, [facility] 05/12/2024 11:15 AM SECURITY SOLUTIONS ARCHITECT Office Visit [facility] [address] [phone] Kev Moser MD [address] [place] [phone] 05/12/2024 11:30 AM SECURITY SOLUTIONS ARCHITECT Clinical Support CAN[facility] CARE [address] [phone] Nurse, [facility] documented as of this encounter Procedures Procedure Name Priority Date/Time Associated Diagnosis Comments COMPLETE BLOOD COUNT (CBC) WITH DIFF Routine 02/11/2024 11:19 AM SECURITY SOLUTIONS ARCHITECT 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) Stage 3a chronic kidney disease (HCC) documented in this encounter Results * (ABNORMAL) COMPLETE BLOOD COUNT (CBC) WITH DIFF (02/11/2024 11:19 AM SECURITY SOLUTIONS ARCHITECT) WBC 5.8 4.0 - 10.0 10*3/uL [facility] HGB 11.1(L) 13.7 - 17.5 g/dL [facility] HCT 36.5(L) 40.1 - 51.0 % [facility] PLT 119(L) 163 - 369 10*3/uL [facility] MPV 10.3 9.4 - 12.4 fL [facility] RBC 3.91(L) 4.63 - 6.08 10*6/uL [facility] MCV 93 79 - 95 fL [facility] MCH 28.4 25.6 - 32.2 pg [facility] MCHC 30.4(L) 32.2 - 36.5 g/dL [facility] RDW 14.2 11.6 - 14.4 % [facility] Absolute Neutrophil Count 4,781 cells/uL [facility] CENT ER [facility] Absolute Seg Count 4,781 1,440 - 6,600 cells/uL [facility] SPECIAL[facility] Absolute Lymph Count 525(L) 760 - 4,000 cells/uL [facility] Absolute [place] Count 350 160 - 1,200 cells/uL [facility] INTERNET SPECIALIST [facility] Absolute Eos Count 175 0 - 300 cells/uL [facility] INTERNET SPECIALIST [facility] Segmented Neutrophils 82(H) 36 - 66 % [facility] INTERNET SPECIALIST [facility] Lymphocytes 9(L) 19 - 40 % [facility]ER C ENTER SPECIALISTS [facility] Monocytes 6 4 - 12 % CANCER TESHA TER [facility]ISTS [facility] Eosinophils 3 0 - 3 % CANCER C ENTER SPECIALISTS [facility] WBC Estimate Normal [facility] INTERNET SPECIALIST [facility] Platelet Estimate Low [facility] INTERNET SPECIALIST [facility] RBC Morphology Normal [facility] Blood 02/11/2024 11:1 9 AM SECURITY SOLUTIONS ARCHITECT Narrative [facility] - 02/11/2024 12:15 PM SECURITY SOLUTIONS ARCHITECT Release to patient->Immediate Kev Moser MD HEMATOLOGY ORDERABLES Final Result [facility] [place] [address], documented in this encounter Visit Diagnoses Diagnosis 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
--- OUTSIDE RECORDS SUMMARY | 2024-04-04 01:28 | XMS_ITS | Encounter Summary ---
Author Organization [facility] Address [address] [place] [address] Phone Care Team Providers Care Sign Writer Letterer Or Painter Name Role Phone Scott Oneill MD Primary Care Provider Tavo Mishra MD Unavailable [phone] Gilmer Barnard MD Unavailable [phone] Kev Moser MD Unavailable [phone] Reason for Visit * Reason Comments Medication Refill Encounter Details Date Type Department Care Team (Late st Contact Info) Description 08/26/2023 Refill [facility] [address] [phone] Kev Mosre MD [address] [place] [phone] Medication Refill Social History Tobacco Use [...] on file 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 Question Answer Date of Assessment Author Patient Health Questionnaire-2 Score 0 08/27/2023 10:40 AM CDT Theresa Tobias LPN documented as of this encounter Miscellaneous Notes * Telephone Encounter - Xochitl Campos RN - 08/27/2023 8:24 AM CDT Refill request from pharmacy. Please fill if appropriate. documented in this encounter Plan of Treatment Upcoming Encounters Date Type Department Care Team (Late st Contact Info) Description 04/07/2024 11:10 AM TANNING WHEEL OPERATOR Lab [facility] [address] [phone] Lab, [facility] 04/07/2024 11:15 AM TANNING WHEEL OPERATOR Clinical Support [facility] [address] [phone] Nurse, Cc [facility] 05/12/2024 11:00 AM TANNING WHEEL OPERATOR Lab [facility] [address] [phone] Lab, [facility] 05/12/2024 11:15 AM TANNING WHEEL OPERATOR Office Visit [facility] [address] [phone] Kev Moser MD [address] [place] [phone] 05/12/2024 11:30 AM TANNING WHEEL OPERATOR Clinical Support [facility] [address] [phone] Nurse, Cc [facility] documented as of this encounter Visit Diagnoses Not on filedocumented in this encounter Additional Health Concerns Assessment Noted Time PHQ-9 Depression Total Score: 0 11/25/19 21 11:34 AM CDT documented as of this encounter Care Teams Sign Writer Letterer Or Painter Relationship Specialty Start Date End Date Scott Oneill MD PCP - General Internal Medicine 04/29/17 Tavo Mishra MD [address] [place] [phone] Internal Medicine 04/29/17 Gilmer Barnard MD [address] [phone] Consulting Physician Internal Medicine 08/28/17 4 Kev Moser MD [address] [place] [phone] Consulting Physician Oncology 02/09/20 documented as of this encounter
--- OUTSIDE RECORDS SUMMARY | 2024-04-04 01:28 | XMS_ITS | Encounter Summary ---
Author Organization [facility] Address [address] [place] [address] Phone Care Team Providers Care Professional Wrestler Name Role Phone Scott Oneill MD Primary Care Provider Tavo Mishra MD Unavailable [phone] Gilmer Barnard MD Unavailable [phone] Kev Moser MD Unavailable [phone] Reason for Visit * Reason Comments Other ELIQUIS SAMPLE DISPE NSE Encounter Details Date Type Department Care Team (Latest Contact Info) Description 07/31/2023 11:30 AM CDT Clinical Support [facility] [address] [phone] Nurse, [facility] Other autoimmune hemolytic anemia (HCC) [...] on file 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 Gender Identity Not on file Sexual Orientation Not on file documented as of this encounter Progress Notes * Fritz Pena RN - 07/31/2023 11:30 AM CDT Dispensed: Eliquis 5 mg tablets 4 boxes given (56 tabs) LOT#: [id number] EXP: 08/2024 documented in this encounter Plan of Treatment Upcoming Encounters Date Type Department Care Team (Late st Contact Info) Description 04/07/2024 11:10 AM AURICULOTHERAPIST Lab [facility] [address] [address] Lab, [facility] 04/07/2024 11:15 AM AURICULOTHERAPIST Clinical Support [facility] [address] [phone] Nurse, [facility] 05/12/2024 11:00 AM AURICULOTHERAPIST Lab [facility] [address] [phone] Lab, [facility] 05/12/2024 11:15 AM AURICULOTHERAPIST Office Visit [facility] [address] [phone] Kev Moser MD [address] [place] [phone] 05/12/2024 11:30 AM AURICULOTHERAPIST Clinical Support [facility] [address] [phone] Nurse, [facility] documented as of this encounter Visit Diagnoses Diagnosis Other autoimmune hemolytic anemia (HCC) documented in this encounter Additional Health Concerns Assessment Noted Time PHQ-9 Depression Total Score: 0 11/25/19 21 11:34 AM CDT documented as of this encounter Care Teams Professional Wrestler Relationship Specialty Start Date End Date Scott Oneill MD PCP - General Internal Medicine 04/29/17 Tavo Mishra MD [address] [address] Internal Medicine 04/29/17 Gilmer Barnard MD [address] [phone] Consulting Physician Internal Medicine 08/28/17 4 Kev Moser MD [address] [place] [phone] Consulting Physician Oncology 02/09/20 documented as of this encounter
--- OUTSIDE RECORDS SUMMARY | 2024-04-04 01:28 | XMS_ITS | Encounter Summary ---
Author Organization [facility] Address [address] [place] [address] Phone Care Team Providers Care Director Counseling Bureau Name Role Phone Scott Oneill MD Primary Care Provider [phone] Tavo Mishra MD Unavailable [phone] Gilmer Barnard MD Unavailable [phone] Kev Moser MD Unavailable [phone] Reason for Visit * Reason Comments Follow-up * Episode Based Medications (Routine) - Authorized Specialty Diagnoses / Procedures Referred By Rocky t Referred To Contact Diagnoses Vitamin B 12 deficiency Procedures VITAMIN B12 INJ RANGE DOSE 1-1,000 MCG Kev Moser MD [address] [place] [phone] Phone: tel: fax: [facility] [address] [address] Phone: tel: fax: Referral ID Status Reason Start Date Expiration Date V isits Requested Visits Authorized [id number] Authorized 03/06/2022 03/30/2027 1 1 Encounter Details Date Type Department Care Team (Late st Contact Info) Description 08/27/2023 11:00 AM CDT Office Visit [facility] [address] [phone] Kev Moser MD [address] [phone] Other autoimmune hemolytic anemia (HCC) (Primary Dx); Vitamin B 12 deficiency Social History Tobacco [...] on file 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 Gender Identity Not on file Sexual Orientation Not on file documented as of this encounter Last Filed Vital Signs Vital Sign Reading Time Taken Comments Blood Pressure 122/74 08/27/2023 10:40 AM CDT Pulse 60 08/27/2023 10:40 AM CDT Temperature 36.8 ??C (98.2 ??F) 08/27/2023 10:40 AM C DT Respiratory Rate 18 08/27/2023 10:40 AM CDT Oxygen Saturation 93% 08/27/2023 10:40 AM CDT Inhaled Oxygen Concentration - - Weight 104.3 kg (230 lb) 08/27/2023 10:40 AM CDT Height 165.1 cm (5' 5 ) 08/27/2023 10:40 AM CDT Body Mass Index 38.27 08/27/2023 10:40 AM CDT documented in this encounter Functional Status * Question Answer Date of Assessment Author Little interest or pleasure in doing things Not at all 08/27/2023 10:40 AM SILVERIOT Viji Tobias LPN Feeling down, depressed, or hopeless Not at all 08/27/2023 10:40 AM CDT Viji Tobias LPN * Over the past 2 weeks, how often have you been bothered by any of the following problems? Question Answer Date of Assessment Author Patient Health Questionnaire-2 Score 0 08/27/2023 10:40 AM CDT Theresa Tobias LPN documented as of this encounter Progress Notes * Kev Moser MD - 08/27/2023 11:00 AM CDT Images from the original note were not included. Patient: Britton Nielsen Age: 68 y.o. : 1955 Encounter Dept: [facility] Encounter Date: 08/27/2023 Care Team: Current Providers PCP: Scott Oneill MD Care Team Provider: Tavo Mishra MD Care Team Provider: Gilmer Barnard MD Care Team Provider: Kev Moser MD Encounter Provider: Kev Moser MD Referring Provider: not found Consulting Physician: Kev Moser MD HISTORY OF PRESENT ILLNESS: Britton returns and doing stable. No major headaches. He continues to follow with Marce Bernal and Dr. Weiss of [facility] with positive MEET and indeterminate ANCA antibody, interstitial lung disease. DIAGNOSIS: 1. Glomerulonephritis, sclerosing (renal biopsy 04/01/17). [...] PAST TREATMENT: 1. Gastroduodenal artery embolization at [facility] 05/2017. 2. Cytoxan 100 mg daily. 3. Bone marrow biopsy 11/03/17 with normocellular marrow and maturating trilineage hematopoiesis with minimal reticulin fibrosis. Normal karyotype and NGS study. 4. EPO 40,000 units q.4 to 8 weeks (poor response, stopped on 01/2019). 5. He is off Cytoxan and prednisone, in remission for his kidney disease. 6. Annual Colonoscopy per Dr. Tubbs CURRENT TREATMENT: On Eliquis b.i.d. Using samples. Observation. Monthly B12 injections. Oral iron supplementation. Workup with Rheumatology and Pulmonology for interstitial lung disease as well as positive ANCA. TREATMENT GUIDELINES: Consistent with NCCN guidelines. 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 PLAN: 1. Continue q.2 month B12 injection. 2. Eliquis, gave samples today. 3. Continue to follow with Rheumatology and Pulmonology. 4. He is going back on mycophenolate. He has had issues with anemia requiring EPO. We will ensure that does not happen. TIME SPENT: REVIEW OF SYSTEMS: See HPI; [...] or effusion. No spine tenderness. LABORATORY/PATHOLOGY/IMAGING NOTES: 1. Laboratory evaluation reviewed per Care Everywhere. Kev Moser MD, FACP/mgo Vitals: Vitals: 08/27/23 1040 BP: 122/74 BP Location: Left Arm BP Position: Sitting BP Cuff Size: Regular Pulse: 60 Resp: 18 Temp: 98.2 ??F (36.8 ??C) TempSrc: Temporal SpO2: 93% Weight: 230 lb (104.3 kg) Height: 5' 5 (1.651 m) Body surface area is 2.19 meters squared. Body mass index is 38.27 kg/m??. Pain Score: 5 Pain Loc: Back Allergies: No Known Allergies PMH/SgH/FH/SH: Past medical, surgical, family and social histories were reviewed at this visit. Past Medical History Positives Diagnosis Date Arthritis Bleeding ulcer Carcinoma (HCC) skin cancer of lip Hypertension Squamous cell cancer of lip Past Surgical History: Procedure Laterality Date BIOPSY OF SKIN LESION lip CARDIAC SURGERY triple bypass EGD KIDNEY BIOPSY ULCER,SUTURE Family History Problem Relation Age of Onset Congestive Heart Failure Father Diabetes Sister Kidney Disease Sister Cancer Brother small cell fast moving ca, lungs to brain Family Status Relation Name Status Father (Not Specified) Sister (Not Specified) Brother (Not Specified) Social History Socioeconomic History Marital status: Tobacco Use Smoking status: Former Packs/day: 1.00 Years: 30.00 Additional pack years: 0.00 Total pack years: 30.00 Types: Cigarettes Quit date: 05/23/2011 Years since quittin.2 Smokeless tobacco: Never Vaping Use Vaping Use: Never used Substance and Sexual Activity Alcohol use: No [...] Current Medications: Outpatient Encounter Medications as of 08/27/2023 Medication Sig Dispense Refill albuterol 108 (90 [...] tablet by mouth daily 30 Tab 0 ergocalciferol (VITAMIN D) 02245 UNIT Capsule Take 50,000 Units by mouth once a week. furosemide (LASIX) 40 MG Tablet Take 40 mg by mouth daily. irbesartan (AVAPRO) 150 MG Tablet Take 150 mg by mouth daily. labetalol (NORMODYNE) 200 MG Tablet Take 200 mg by mouth 2 times daily. pantoprazole (PROTONIX) 40 MG Tablet Delayed Response [...] facility-administered encounter medications on file as of 08/27/2023. Labs: No visits with results within 7 Day(s) from this visit. Latest known visit with results is: Lab on 07/02/2023 Component Date Value Ref Range Status Glucose 07/02/2023 110 (H) 70 - 105 mg/dL Final Blood Urea Nitrogen 07/02/2023 34 (H) 7 - 25 mg/dL Final Creatinine 07/02/2023 2.2 (H) 0.7 - 1.3 mg/dL Final Sodium 07/02/2023 139 136 - 145 mEq/L Final Potassium 07/02/2023 4.5 3.5 - 5.1 mEq/L Final Chloride 07/02/2023 107 98 - 107 mEq/L Final Bicarbonate 07/02/2023 23 21 - 31 mEq/L Final Total Bilirubin 07/02/2023 0.8 0.3 - 1.0 mg/dL Final Alk. Phosphatase 07/02/2023 75 34 - 104 U/L Final Aspartate Aminotransferase 07/02/2023 11 (L) 13 - 39 U/L Final Alanine Aminotransferase 07/02/2023 11 7 - 52 U/L Final Total Protein 07/02/2023 6.4 6.4 - 8.9 g/dL Final Albumin 07/02/2023 3.9 3.5 - 5.7 g/dL Final Calcium 07/02/2023 8.0 (L) 8.6 - 10.3 mg/dL Final Anion Gap 07/02/2023 13.5 7.0 - 15.0 mEq/L Final Globulin 07/02/2023 2.5 2.0 - 3.5 g/dL Final EGFR 07/02/2023 32 (L) >60 ml/min/1.73m2 Final Comment: This eGFR is calculated using 2020 CKD-EPI Creatinine equation without race modifier based on the NKF-ASN task force recommendations WBC 07/02/2023 5.3 4.0 - 10.0 10*3/uL Final HGB 07/02/2023 11.1 (L) 13.7 - 17.5 g/dL Final HCT 07/02/2023 34.5 (L) 40.1 - 51.0 % Final PLT 07/02/2023 131 (L) 163 - 369 10*3/uL Final MPV 07/02/2023 10.0 9.4 - 12.4 fL Final RBC 07/02/2023 3.69 (L) 4.63 - 6.08 10*6/uL Final MCV 07/02/2023 94 79 - 95 fL Final MCH 07/02/2023 30.1 25.6 - 32.2 pg Final MCHC 07/02/2023 32.2 32.2 - 36.5 g/dL Final RDW 07/02/2023 15.1 (H) 11.6 - 14.4 % Final Absolute Neutrophil Count 07/02/2023 3,915 cells/uL Final Absolute Seg Count 07/02/2023 3,862 1,440 - 6,600 cells/uL Final Absolute Band Count 07/02/2023 53 0 - 800 cells/uL Final Absolute Lymph Count 07/02/2023 741 (L) 760 - 4,000 cells/uL Final Absolute Flathead Count 07/02/2023 476 160 - 1,200 cells/uL Final Absolute Eos Count 07/02/2023 159 0 - 300 cells/uL Final Segmented Neutrophils 07/02/2023 73 (H) 36 - 66 % Final Band Neutrophils 07/02/2023 1 0 - 8 % Final Lymphocytes 07/02/2023 14 (L) 19 - 40 % Final Monocytes 07/02/2023 9 4 - 12 % Final Eosinophils 07/02/2023 3 0 - 3 % Final WBC Estimate 07/02/2023 Normal Final Platelet Estimate 07/02/2023 Low Final RBC Morphology 07/02/2023 Abnormal Final Anisocytosis 07/02/2023 1+ Final Vitamin B12 07/02/2023 379 180 - 914 pg/mL Final Folate 07/02/2023 9.48 >=5.90 ng/mL Final Ferritin 07/02/2023 431 (H) 24 - 336 ng/mL Final IRON 07/02/2023 58 50 - 212 ug/dL Final UIBC 07/02/2023 175 155 - 355 ug/dL Final TIBC 07/02/2023 233 (L) 261 - 478 ug/dl Final % Saturation 07/02/2023 25 20 - 50 % Final Reticulocyte count 07/02/2023 2.23 (H) 0.51 - 1.81 % Final RET-He 07/02/2023 31.00 28.20 - 36.60 pg Final Comment: RET-He is a direct assessment of incorporation of iron into erythrocyte hemoglobin. It provides an indirect measure of the iron available for new erythropoiesis over past 2-4 days. documented in this encounter Plan of Treatment Upcoming Encounters Date Type Department Care Team (Late st Contact Info) Description 04/07/2024 11:10 AM POWER GENERATION PLANT OPERATOR Lab [facility] [address] [phone] Lab, [facility] 04/07/2024 11:15 AM POWER GENERATION PLANT OPERATOR Clinical Support [facility] [address] [phone] Nurse, [facility] 05/12/2024 11:00 AM POWER GENERATION PLANT OPERATOR Lab [facility] [address] [phone] Lab, [facility] 05/12/2024 11:15 AM POWER GENERATION PLANT OPERATOR Office Visit [facility] [address] [phone] Kev Moser MD [address] [place] [address] [place] [phone] 05/12/2024 11:30 AM POWER GENERATION PLANT OPERATOR Clinical Support [facility] [address] [place] [address] [facility] documented as of this encounter Results * (ABNORMAL) CMP (COMPREHENSIVE METABOLIC PANEL) (10/22/2023 10:36 AM CDT) Glucose 99 70 - 105 mg/dL [facility] Blood Urea Nitrogen 36(H) 7 - 25 mg/dL [facility] Creatinine 2.5(H) 0.7 - 1.3 mg/dL [facility] Sodium 142 136 - 145 mEq/L [facility] Potassium 5.0 3.5 - 5.1 mEq/L [facility] Chloride 113(H) 98 - 107 mEq/L [facility] Bicarbonate 27 21 - 31 mEq/L [facility] Total Bilirubin 0.8 0.3 - 1.0 mg/dL [facility] Alk. Phosphatase 78 34 - 104 U/L [facility] Aspartate Aminotransferase 8(L) 13 - 39 U/L [facility] Alanine Aminotransferase 9 7 - 52 U/L [facility] Total Protein 5.6(L) 6.4 - 8.9 g/dL [facility] Albumin 3.8 3.5 - 5.7 g/dL [facility] Calcium 6.6(LL) 8.6 - 10.3 mg/dL [facility] Comment: Critical Result reported to Josephine Aleman on 10/22/2023 12:00 by ? Klaudia Henry. Results were read back to caller. Anion Gap 7.0 7.0 - 15.0 mEq/L [facility] Globulin 1.8(L) 2.0 - 3.5 g/dL [facility] EGFR 27(L) >60 ml/min/1. 73m2 [facility] Comment: This eGFR is calculated using 2020 CKD-EPI Creatinine equation without race modifier based on the NKF-ASN task force recommendations Blood 10/22/2023 10:3 6 AM CDT [facility] 10/22/2023 12:00 PM CDT Release to patient->Immediate IS THE PATIENT REQUIRED TO BE FASTING FOR 8 HOURS?->No us Kev Moser MD CHEMISTRY ORDERABLES Final Result Performing Organization Address [facility]/ZIP Co de Phone Number [facility]ARE COORD[facility] [place] [address], [place] [phone] * LACTATE DEHYDROGENASE (LD) (10/22/2023 10:36 AM CDT) Pathologist [facility] LDH 184 140 - 271 U/L [facility] Blood 10/22/2023 10:3 6 AM CDT [facility] - 10/22/2023 11:40 AM CDT Release to patient->Immediate us Kev Moser MD CHEMISTRY ORDERABLES Final Result Performing Organization Address [facility] de Phone Number [facility] [place] [place] [address], [place] [phone] * (ABNORMAL) COMPLETE BLOOD COUNT (CBC) WITH DIFF (10/22/2023 10:36 AM CDT) WBC 5.5 4.0 - 10.0 10*3/uL [facility] HGB 9.1(L) 13.7 - 17.5 g/dL [facility] HCT 29.3(L) 40.1 - 51.0 % [facility] PLT 108(L) 163 - 369 10*3/uL [facility] MPV 9.6 9.4 - 12.4 fL [facility] RBC 3.17(L) 4.63 - 6.08 10*6/uL [facility] MCV 92 79 - 95 fL [facility] MCH 28.7 25.6 - 32.2 pg [facility] MCHC 31.1(L) 32.2 - 36.5 g/dL [facility] RDW 15.5(H) 11.6 - 14.4 % [facility] Absolute Neutrophil Count 3,953 cells/uL [facility] Absolute Seg Count 3,953 1,440 - 6,600 cells/uL [facility] Absolute Lymph Count 878 760 - 4,000 cells/uL [facility] Absolute Flathead Count 439 160 - 1,200 cells/uL [facility] Absolute Eos Count 165 0 - 300 cells/uL [facility] Absolute Baso Count 55 0 - 100 cells/uL [facility] Segmented Neutrophils 72(H) 36 - 66 % [facility] Lymphocytes 16(L) 19 - 40 % [facility] Monocytes 8 4 - 12 % [facility] Eosinophils 3 0 - 3 % [facility] Basophils 1 0 - 1 % [facility] WBC Estimate Normal [facility] Platelet Estimate Low [facility] RBC Morphology Abnormal CANCE R CLIENT CARE COORDINATOR [facility] Anisocytosis 1+ [facility] Blood 10/22/2023 10:3 6 AM CDT Narrative [facility] - 10/22/2023 1:38 PM CDT Release to patient->Immediate Kev Moser MD HEMATOLOGY ORDERABLES Final Result [facility] [place] [address], documented in this encounter Visit Diagnoses Diagnosis Other autoimmune hemolytic anemia (HCC)- Primary Vitamin B 12 deficiency Other B-complex deficiencies Other autoimmune hemolytic anemia (HCC) documented in this encounter Administered Medications Inactive Administered Medications - up to 3 most recent administrations Medication Order MAR Action Action Date Dose Rate Site cyanocobalamin (VITAMIN B-12) injection 1,000 mcg 1,000 mcg, Subcutaneous, ONCE, 1 dose, On Fri08/27/23 at 1200, To be given 1 week prior to Chemotherapy. Route IM or SUBQ.Indications:Vitam in B 12 deficiency Given 08/27/2023 11:30 AM CDT 1,000 mcg Left Lateral Upper Arm documented in this encounter Additional Health Concerns Assessment Noted Time PHQ-9 Depression Total Score: 0 11/25/19 21 11:34 AM CDT documented as of this encounter Care Teams Director Counseling Bureau Relationship Specialty Start Date End Date Scott Oneill MD PCP - General Internal Medicine 04/29/17 Tavo Mishra MD [address] [place] [address] Internal Medicine 04/29/17 Gilmer Barnard MD [address] [place] [address] Consulting Physician Internal Medicine 08/28/17 4 Kev Moser MD [address] [place] [phone] Consulting Physician Oncology 02/09/20 documented as of this encounter
--- OUTSIDE RECORDS SUMMARY | 2024-04-04 01:28 | XMS_ITS | Encounter Summary ---
Author Organization [facility] Address [address] [place] [address] Phone Care Team Providers Care Setter Helper Name Role Phone Scott Oneill MD Primary Care Provider [phone] Tavo Mishra MD Unavailable [phone] Gilmer Barnard MD Unavailable [phone] Kev Moser MD Unavailable [phone] Reason for Visit * Reason Comments Therapeutic Injection B12 * Episode Based Medications (Routine) - Authorized Specialty Diagnoses / Procedures Referred By Contac t Referred To Contact Diagnoses Vitamin B 12 deficiency Procedures VITAMIN B12 INJ RANGE DOSE 1-1,000 MCG Kev Moser MD [address] [place] [address] Phone: tel: fax: [facility] [address] [address] Phone: tel: fax: Referral ID Status Reason Start Date Expiration Date V isits Requested Visits Authorized [id number] Authorized 03/06/2022 03/30/2027 1 1 Encounter Details Date Type Department Care Team (Latest Contact Info) Description 05/02/2023 11:30 AM FITTINGS FINISHER Clinical Support [facility] [address] [address] Nurse, [facility] Vitamin B 12 deficiency (Primary [...] on file 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 Tolerated well to right arm. Band-aid applied. No change in patient performance status since arrival to clinic. Patient discharged ambulatory. INGS FINISHER documented in this encounter Plan of Treatment Upcoming Encounters Date Type Department Care Team (Late st Contact Info) Description 04/07/2024 11:10 AM FITTINGS FINISHER Lab [facility] [address] [phone] Lab, [facility] 04/07/2024 11:15 AM FITTINGS FINISHER Clinical Support [facility] [address] [phone] Nurse, [facility] 05/12/2024 11:00 AM FITTINGS FINISHER Lab [facility] [address] [phone] Lab, [facility] 05/12/2024 11:15 AM FITTINGS FINISHER Office Visit [facility] [address] [phone] Kev Moser MD [address] [place] [phone] 05/12/2024 11:30 AM FITTINGS FINISHER Clinical Support [facility] [address] [phone] [facility] documented as of [facility] encounter Visit Diagnoses Diagnosis Vitamin B 12 deficiency- Primary Other B-complex deficiencies documented in this encounter Administered Medications Inactive Administered Medications - up to 3 most recent administrations Medication Order MAR Action Action Date Dose Rate Site cyanocobalamin (VITAMIN B-12) injection 1,000 mcg 1,000 mcg, Subcutaneous, ONCE, 1 dose, On Fri05/02/23 at 1130, To be given 1 week prior to Chemotherapy. Route IM or SUBQ.Indications:Vitam in B 12 deficiency Given 05/02/2023 11:05 AM FITTINGS FINISHER 1,000 mcg Right Lateral Upper Arm documented in this encounter Additional Health Concerns Assessment Noted Time PHQ-9 Depression Total Score: 0 11/25/19 21 11:34 AM CDT documented as of this encounter Care Teams Setter Helper Relationship Specialty Start Date End Date Scott Oneill MD PCP - General Internal Medicine 04/29/17 Tavo Mishra MD [address] [place] [phone] Internal Medicine 04/29/17 Gilmer Barnard MD [address] [address] Consulting Physician Internal Medicine 08/28/17 4 Kev Moser MD [address] [place] [phone] Consulting Physician Oncology 02/09/20 documented as of this encounter
--- OUTSIDE RECORDS SUMMARY | 2024-04-04 01:28 | XMS_ITS | Encounter Summary ---
Author Organization [facility] Address [address] [place] [address] Phone Care Team Providers Care Roll Sheeting Cutter Name Role Phone Scott Oneill MD Primary Care Provider [phone] Tavo Mishra MD Unavailable [phone] Gilmer Barnard MD Unavailable [phone] Kev Moser MD Unavailable [phone] Reason for Visit * Reason Comments Therapeutic Injection * Episode Based Medications (Routine) - Authorized Specialty Diagnoses / Procedures Referred By Contamy t Referred To Contact Diagnoses Vitamin B 12 deficiency Procedures VITAMIN B12 INJ RANGE DOSE 1-1,000 MCG Kev Moser MD [address] [place] [phone] Phone: tel: fax: [facility] [address] [address] Phone: tel: fax: Referral ID Status Reason Start Date Expiration Date V isits Requested Visits Authorized [id number] Authorized 03/06/2022 03/30/2027 1 1 Encounter Details Date Type Department Care Team (Latest Contact Info) Description 05/30/2023 11:30 AM CLIENT INSIGHTS CONSULTANT Clinical Support [facility] [address] [address] Nurse, [facility] Vitamin B 12 deficiency (Primary Dx) [...] on file Legal Sex Male 3:42 PM CLIENT INSIGHTS CONSULTANT Gender Identity Not on file Sexual Orientation Not on file documented as of this encounter Progress Notes * Josephine Aleman RN - 05/30/2023 11:30 AM CST Patient in for B12 injection. Tolerated well to left arm. Band-aid applied. No change in patient performance status since arrival to clinic. Patient discharged ambulatory. NT INSIGHTS CONSULTANT documented in this encounter Plan of Treatment Upcoming Encounters Date Type Department Care Team (Late st Contact Info) Description 04/07/2024 11:10 AM CLIENT INSIGHTS CONSULTANT Lab [facility] [address] [phone] Lab, [facility] 04/07/2024 11:15 AM CLIENT INSIGHTS CONSULTANT Clinical Support [facility] [address] [phone] Nurse, [facility] 05/12/2024 11:00 AM CLIENT INSIGHTS CONSULTANT Lab [facility] [address] [phone] Lab, [facility] 05/12/2024 11:15 AM CLIENT INSIGHTS CONSULTANT Office Visit [facility] [address] [phone] Kev Moser MD [address] [place] [phone] 05/12/2024 11:30 AM CLIENT INSIGHTS CONSULTANT Clinical Support [facility] [address] [place] [phone] Nurse, [facility] documented as of this encounter Visit Diagnoses Diagnosis Vitamin B 12 deficiency- Primary Other B-complex deficiencies documented in this encounter Administered Medications Inactive Administered Medications - up to 3 most recent administrations Medication Order MAR Action Action Date Dose Rate Site cyanocobalamin (VITAMIN B-12) injection 1,000 mcg 1,000 mcg, Subcutaneous, ONCE, 1 dose, On Fri05/30/23 at 1130, To be given 1 week prior to Chemotherapy. Route IM or SUBQ.Indications:Vitam in B 12 deficiency Given 05/30/2023 11:07 AM CLIENT INSIGHTS CONSULTANT 1,000 mcg Left Lateral Upper Arm documented in this encounter Additional Health Concerns Assessment Noted Time PHQ-9 Depression Total Score: 0 11/25/19 21 11:34 AM CDT documented as of this encounter Care Teams Roll Sheeting Cutter Relationship Specialty Start Date End Date Scott Oneill MD PCP - General Internal Medicine 04/29/17 Tavo Mishra MD [address] [facility] [address] [place] [phone] Internal Medicine 04/29/17 Gilmer Barnard MD [address] [address] Consulting Physician Internal Medicine 08/28/17 4 Kev Moser MD [address] [place] [phone] Consulting Physician Oncology 02/09/20 documented as of this encounter
--- OUTSIDE RECORDS SUMMARY | 2024-04-04 01:28 | XMS_ITS | Encounter Summary ---
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 CLUB TRAVEL COUNSELOR Gender Identity Not on file Sexual Orientation Not on file documented as of this encounter Plan of Treatment Upcoming Encounters Date Type Department Care Team (Late st Contact Info) Description 04/07/2024 11:10 AM AUTOMOBILE CLUB TRAVEL COUNSELOR Lab [facility] [address] [phone] Lab, [facility] 04/07/2024 11:15 AM AUTOMOBILE CLUB TRAVEL COUNSELOR Clinical Support [facility] [address] [phone] Nurse, [facility] 05/12/2024 11:00 AM AUTOMOBILE CLUB TRAVEL COUNSELOR Lab [facility] [address] [phone] Lab, [facility] 05/12/2024 11:15 AM AUTOMOBILE CLUB TRAVEL COUNSELOR Office Visit [facility] [address] [phone] Kev Moser MD [address] [place] [phone] 05/12/2024 11:30 AM AUTOMOBILE CLUB TRAVEL COUNSELOR Clinical Support [facility] [address] [phone] Nurse, [facility] documented as of this encounter Visit Diagnoses Not on filedocumented in this encounter Additional Health Concerns Assessment Noted Time PHQ-9 Depression Total Score: 0 11/25/19 21 11:34 AM CDT documented as of this encounter Care Teams Records Officer Relationship Specialty Start Date End Date Scott Oneill MD PCP - General Internal Medicine 04/29/17 Tavo Mishra MD [address] [address] Internal Medicine 04/29/17 Gilmer Barnard MD [address] [address] Consulting Physician Internal Medicine 08/28/17 4 Kev Moser MD [address] [place] [phone] Consulting Physician Oncology 02/09/20 documented as of this encounter
--- OUTSIDE RECORDS SUMMARY | 2024-04-04 01:28 | XMS_ITS | Encounter Summary ---
Author Organization [facility] Address [address] [place] [address] Phone Care Team Providers Care Color Paste Mixer Name Role Phone Scott Oneill MD Primary Care Provider Tavo Mishra MD Unavailable [phone] Gilmer Barnard MD Unavailable [phone] Kev Moser MD Unavailable [phone] Encounter Details Date Type Department Care Team (Late st Contact Info) Description 04/02/2023 Telephone [facility] [place] [address] [place] [address] Sindi Qiu, STRAWHAT INSPECTOR AND PACKER, SALES CONSULTING DIRECTOR [address] [place] [address] Social History Tobacco Use Types [...] on file Legal Sex Male 3:42 PM PHP MYSQL DEVELOPER Gender Identity Not on file Sexual Orientation Not on file documented as of this encounter Functional Status * Question Answer Date of Assessment Author Little interest or pleasure in doing things Not at all 04/02/2023 11:34 AM Yesica Oquendo CMA Feeling down, depressed, or hopeless Not at all 04/02/2023 11:34 AM Alo Oquendo CMA * Over the past 2 weeks, how often have you been bothered by any of the following problems? Question Answer Date of Assessment Author Patient Health Questionnaire-2 Score 0 04/02/2023 11:34 AM PHP MYSQL DEVELOPER Christy Barber CMA documented as of this encounter Miscellaneous Notes * Addendum Note - Peg Campos RN - 04/04/2023 11:41 AM CSTAddended by: PEG CAMPOS on: 04/04/2023 11:41 AM Modules accepted: Orders MYSQL DEVELOPER * Telephone Encounter - Peg Campos RN - 04/04/2023 11:38 AM CST Called and spoke with patient Iron script sent to preferred pharmacy. Advised to take with vit c and use stool softener if needed for constipation, callus for any questions or concerns MYSQL DEVELOPER * Telephone Encounter - Sindi Qiu APRN, CNP - 04/02/2023 2:10 PM PHP MYSQL DEVELOPER Please have patient start oral iron daily MYSQL DEVELOPER MYSQL DEVELOPER documented in this encounter Plan of Treatment Upcoming Encounters Date Type Department Care Team (Late st Contact Info) Description 04/07/2024 11:10 AM PHP MYSQL DEVELOPER Lab [facility] [address] [phone] Lab, [facility] 04/07/2024 11:15 AM PHP MYSQL DEVELOPER Clinical Support [facility] [address] [phone] Nurse, [facility] 05/12/2024 11:00 AM PHP MYSQL DEVELOPER Lab [facility] [address] [phone] Lab, [facility] 05/12/2024 11:15 AM PHP MYSQL DEVELOPER Office Visit [facility] [address] [phone] Kev Moser MD [address] [place] [phone] 05/12/2024 11:30 AM PHP MYSQL DEVELOPER Clinical Support [facility] [address] [phone] Nurse, [facility] documented as of this encounter Visit Diagnoses Not on filedocumented in this encounter Additional Health Concerns Assessment Noted Time PHQ-9 Depression Total Score: 0 11/25/19 21 11:34 AM CDT documented as of this encounter Care Teams Color Paste Mixer Relationship Specialty Start Date End Date Scott Oneill MD PCP - General Internal Medicine 04/29/17 Tavo Mishra MD [address] [address] Internal Medicine 04/29/17 Glimer Barnard MD [address] [address] Consulting Physician Internal Medicine 08/28/17 4 Kev Moser MD [address] [place] [phone] Consulting Physician Oncology 02/09/20 documented as of this encounter
--- OUTSIDE RECORDS SUMMARY | 2024-04-04 01:28 | XMS_ITS | Encounter Summary ---
Author Organization [facility] Address [address] [place] [address] Phone Care Team Providers Care Barrel Burner Name Role Phone Scott Oneill MD Primary Care Provider Tavo Mishra MD Unavailable [phone] Gilmer Barnard MD Unavailable [phone] Kev Moser MD Unavailable Reason for Visit * Reason Comments Medication Refill Encounter Details Date Type Department Care Team (Late st Contact Info) Description 07/01/2023 Refill [facility] [place] [address] [place] [phone] Sindi Qiu, TRAILER BODY ASSEMBLER, MANAGER COLLECTION [address] [place] [address] Medication Refill Social History Tobacco [...] file Legal Sex Male 3:42 PM MEDICAL PHYSIOLOGIST Gender Identity Not on file Sexual Orientation Not on file documented as of this encounter Functional Status * Question Answer Date of Assessment Author Little interest or pleasure in doing things Not at all 07/02/2023 11:14 AM SILVERIOT Yesica Barber CMA Feeling down, depressed, or hopeless Not at all 07/02/2023 11:14 AM CDT Alo Barber CMA * Over the past 2 weeks, how often have you been bothered by any of the following problems? Question Answer Date of Assessment Author Patient Health Questionnaire-2 Score 0 07/02/2023 11:14 AM CDT Christy Barber CMA documented as of this encounter Miscellaneous Notes * Telephone Encounter - Xochitl Campos RN - 07/01/2023 11:15 AM CDT Refill request from pharmacy. Please fill if appropriate. documented in this encounter Plan of Treatment Upcoming Encounters Date Type Department Care Team (Late st Contact Info) Description 04/07/2024 11:10 AM MEDICAL PHYSIOLOGIST Lab [facility] [address] [address] Lab, [facility] 04/07/2024 11:15 AM MEDICAL PHYSIOLOGIST Clinical Support [facility] [address] [phone] Nurse, [facility] 05/12/2024 11:00 AM MEDICAL PHYSIOLOGIST Lab [facility] [address] [address] Lab, [facility] 05/12/2024 11:15 AM MEDICAL PHYSIOLOGIST Office Visit [facility] [address] [phone] Kev Moser MD [address] [place] [phone] 05/12/2024 11:30 AM MEDICAL PHYSIOLOGIST Clinical Support [facility] [address] [phone] Nurse, [facility] documented as of this encounter Visit Diagnoses Not on filedocumented in this encounter Additional Health Concerns Assessment Noted Time PHQ-9 Depression Total Score: 0 11/25/19 21 11:34 AM CDT documented as of this encounter Care Teams Barrel Burner Relationship Specialty Start Date End Date Scott Oneill MD PCP - General Internal Medicine 04/29/17 Tavo Mishra MD [address] [facility] [address] [place] [phone] Internal Medicine 04/29/17 Gilmer Barnard MD [address] [phone] Consulting Physician Internal Medicine 08/28/17 4 Kev Moser MD [address] [place] [phone] Consulting Physician Oncology 02/09/20 documented as of this encounter
--- OUTSIDE RECORDS SUMMARY | 2024-04-04 01:28 | XMS_ITS | Encounter Summary ---
Author Organization [employer] Care Team Providers Care Truss Assembler Name Role Phone Scott Oneill MD Primary Care Provider [phone] Tavo Mishra MD Unavailable [phone] Gilmer Barnard MD Unavailable [phone] Kev Moser MD Unavailable [phone] Encounter Details Date Type Department Care Team (Latest Contact Info) Description 01/13/2023 Travel Social History Tobacco Use Types Packs/Day [...] on file Legal Sex Male 3:42 PM LITIGATION MANAGER Gender Identity Not on file Sexual Orientation Not on file COVID-19 Exposure Response Date Recorded In the last 10 days, have yo u been in contact with someone who was confirmed or suspected to have Coronavirus/COVID-19? No / Unsure 01/13/2023 11:26 AM CDT documented as of this encounter Plan of Treatment Upcoming Encounters Date Type Department Care Team (Late st Contact Info) Description 04/07/2024 11:10 AM LITIGATION MANAGER Lab [facility] [address] [phone] Lab, [facility] 04/07/2024 11:15 AM LITIGATION MANAGER Clinical Support [facility] [address] [phone] Nurse, [facility] 05/12/2024 11:00 AM LITIGATION MANAGER Lab [facility] [address] [phone] Lab, [facility] 05/12/2024 11:15 AM LITIGATION MANAGER Office Visit [facility] [address] [phone] Kev Moser MD [address] [place] [phone] 05/12/2024 11:30 AM LITIGATION MANAGER Clinical Support [facility] [address] [phone] Nurse, [facility] documented as of this encounter Visit Diagnoses Not on filedocumented in this encounter Additional Health Concerns Assessment Noted Time PHQ-9 Depression Total Score: 0 11/25/19 21 11:34 AM CDT documented as of this encounter Care Teams Truss Assembler Relationship Specialty Start Date End Date Scott Oneill MD PCP - General Internal Medicine 04/29/17 Tavo Mishra MD [address] [phone] Internal Medicine 04/29/17 Gilmer Barnard MD [address] [phone] Consulting Physician Internal Medicine 08/28/17 4 Kev Moser MD [address] [place] [phone] Consulting Physician Oncology 02/09/20 documented as of this encounter
--- OUTSIDE RECORDS SUMMARY | 2024-04-04 01:28 | XMS_ITS | Encounter Summary ---
Author Organization [employer] Care Team Providers Care Head Of Business Development Name Role Phone Scott Oneill MD Primary Care Provider [phone] Tavo Mishra MD Unavailable [phone] Gilmer Barnard MD Unavailable [phone] Kev Moser MD Unavailable [phone] Encounter Details Date Type Department Care Team (Latest Contact Info) Description 05/21/2023 Travel Social History Tobacco Use Types Packs/Day [...] on file Legal Sex Male 3:42 PM RIDER TICKET WORKER Gender Identity Not on file Sexual Orientation Not on file documented as of this encounter Plan of Treatment Upcoming Encounters Date Type Department Care Team (Late st Contact Info) Description 04/07/2024 11:10 AM RIDER TICKET WORKER Lab [facility] [address] [phone] Lab, [facility] 04/07/2024 11:15 AM RIDER TICKET WORKER Clinical Support [facility] [address] [phone] Nurse, [facility] 05/12/2024 11:00 AM RIDER TICKET WORKER Lab [facility] [address] [phone] Lab, [facility] 05/12/2024 11:15 AM RIDER TICKET WORKER Office Visit [facility] [address] [phone] Kev Moser MD [address] [place] [phone] 05/12/2024 11:30 AM RIDER TICKET WORKER Clinical Support [facility] [address] [phone] Nurse, [facility] documented as of this encounter Visit Diagnoses Not on filedocumented in this encounter Additional Health Concerns Assessment Noted Time PHQ-9 Depression Total Score: 0 11/25/19 21 11:34 AM CDT documented as of this encounter Care Teams Head Of Business Development Relationship Specialty Start Date End Date Scott Oneill MD PCP - General Internal Medicine 04/29/17 Tavo Mishra MD [address] [address] Internal Medicine 04/29/17 Gilmer Barnard MD [address] [address] Consulting Physician Internal Medicine 08/28/17 4 Kev Moser MD [address] [place] [phone] Consulting Physician Oncology 02/09/20 documented as of this encounter
--- OUTSIDE RECORDS SUMMARY | 2024-04-04 01:28 | XMS_ITS | Encounter Summary ---
Author Organization [facility] Address [address] [place] [address] Phone Care Team Providers Care Mainframe Applications Developer Name Role Phone Scott Oneill MD Primary Care Provider Tavo Mishra MD Unavailable [phone] Gilmer Barnard MD Unavailable [phone] Kev Moser MD Unavailable [phone] Reason for Visit * Reason Comments Follow-up Encounter Details Date Type Department Care Team (Late st Contact Info) Description 02/10/2023 11:00 AM TURBINE TECHNICIAN [facility] [address] [phone] Kev Moser MD [address] [place] [phone] Vitamin B 12 deficiency (Primary Dx); Other autoimmune hemolytic anemia (HCC); Iron deficiency anemia due to sideropenic dysphagia; Anemia, unspecified type; Stage 3a chronic kidney disease (HCC) Social [...] on file Legal Sex Male 3:42 PM TURBINE TECHNICIAN Gender Identity Not on file Sexual Orientation Not on file COVID-19 Exposure Response Date Recorded In the last 10 days, have yo u been in contact with someone who was confirmed or suspected to have Coronavirus/COVID-19? No / Unsure 01/13/2023 11:26 AM CDT documented as of this encounter Last Filed Vital Signs Vital Sign Reading Time Taken Comments Blood Pressure 156/82 02/10/2023 11:35 AM TURBINE TECHNICIAN Pulse 64 02/10/2023 11:35 AM TURBINE TECHNICIAN Temperature 36.9 ??C (98.4 ??F) 02/10/2023 1 1:35 AM TURBINE TECHNICIAN Respiratory Rate 18 02/10/2023 11:3 5 AM TURBINE TECHNICIAN Oxygen Saturation 94% 02/10/2023 11: 35 AM TURBINE TECHNICIAN Inhaled Oxygen Concentration - - Weight 99.3 kg (218 lb 14.4 oz) 023 11:35 AM TURBINE TECHNICIAN Height 165.1 cm (5' 5 ) 02/10/2023 11:3 5 AM TURBINE TECHNICIAN Body Mass Index 36.43 02/10/2023 11:35 AM TURBINE TECHNICIAN documented in this encounter Functional Status * Question Answer Date of Assessment Author Little interest or pleasure in doing things Not at all 02/10/2023 11:31 AM Yesica Oquendo CMA Feeling down, depressed, or hopeless Not at all 02/10/2023 11:31 AM TURBINE TECHNICIAN Alo Barber CMA * Over the past 2 weeks, how often have you been bothered by any of the following problems? Question Answer Date of Assessment Author Patient Health Questionnaire-2 Score 0 02/10/2023 11:31 AM Christy Oquendo CMA documented as of this encounter Progress Notes * Kev Moser MD - 02/10/2023 11:00 AM CST Images from the original note were not included. Patient: Britton Nielsen Age: 67 y.o. : 1955 Encounter Dept: [facility] Encounter Date: 02/10/2023 Care Team: Current Providers PCP: Scott Oneill MD Care Team Provider: Tavo Mishra MD Care Team Provider: Gilmer Barnard MD Care Team Provider: Kev Moser MD Encounter Provider: Kev Moser MD Referring Provider: not found Consulting Physician: Kev Moser MD HISTORY OF PRESENT ILLNESS: Britton returns earlier than expected. He was admitted to the hospital with hematuria. They did not have him see Urology. He states his creatinine stayed stable. They took him off of Eliquis and sent him back to see us. DIAGNOSIS: 1. Glomerulonephritis, sclerosing (renal biopsy 04/01/17). [...] PAST TREATMENT: 1. Gastroduodenal artery embolization at [facility] 05/2017. 2. Cytoxan 100 mg daily. 3. [...] b.i.d. Using samples. Observation. Monthly B12 injections. TREATMENT GUIDELINES: Consistent with NCCN guidelines. 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 PLAN: 1. His Eliquis was held. We told him to restart this. If he has any blurred vision we want him to stop it. 2. Referral to Urology. 3. IV iron as needed. 4. Followup on bloodwork from the hospital and again today. 5. Review his discharge summary. 6. Patient saw Dr. Tubbs. He is getting annual colonoscopy due to increased number of polyps seen. Heis having this done in May 2023. 7. Previously was taking vitamin B12 so we will continue to follow levels. 8. Continue following with Dr. Barnard. TIME SPENT: REVIEW OF SYSTEMS: See HPI; [...] reviewed per Care Everywhere. Kev Moser MD, FACP/rmd Vitals: Vitals: 02/10/23 1135 BP: 156/82 BP Location: Left Arm BP Position: Sitting BP Cuff Size: Regular Pulse: 64 Resp: 18 Temp: 98.4 ??F (36.9 ??C) TempSrc: Temporal SpO2: 94% Weight: 218 lb 14.4 oz (99.3 kg) Height: 5' 5 (1.651 m) Body surface area is 2.13 meters squared. Body mass index is 36.43 kg/m??. Pain Score: 0 - No pain Allergies: No Known Allergies PMH/SgH/FH/SH: Past medical, surgical, family and social histories were reviewed at this visit. Past Medical History Positives Diagnosis Date ??? Arthritis ??? Bleeding ulcer ??? Carcinoma (HCC) skin cancer of lip ??? Hypertension ??? Squamous cell cancer of lip Past Surgical History: Procedure Laterality Date ??? BIOPSY OF SKIN LESION lip ??? CARDIAC SURGERY triple bypass ??? EGD ??? KIDNEY BIOPSY ??? ULCER,SUTURE Family History Problem Relation Age of Onset ??? Congestive Heart Failure Father ??? Diabetes Sister ??? Kidney Disease Sister ??? Cancer Brother small cell fast moving ca, lungs to brain Family Status Relation Name Status ??? Father (Not Specified) ??? Sister (Not Specified) ??? Brother (Not Specified) Social History Socioeconomic History ??? Marital status: Tobacco Use ??? Smoking status: Former Packs/day: 1.00 Years: 30.00 Additional pack years: 0.00 Total pack years: 30.00 Types: Cigarettes Quit date: 05/23/2011 Years since quittin.7 ??? Smokeless tobacco: Never Vaping Use ??? Vaping Use: Never used Substance and Sexual Activity ??? Alcohol use: No ??? Drug use: No Oncology History: Oncology History No history exists. Cancer Staging: Cancer Staging No matching staging information was found for the patient. Cumulative dose Purpose/Goal Comments Lifetime Dose Tracking No doses have been documented on this patient for the following tracked chemicals: Doxorubicin, Epirubicin, Idarubicin, Daunorubicin, Mitoxantrone, Bleomycin, Ifosfamide, Methotrexate, Cyclophosphamide, Cisplatin, Carboplatin Current Medications: Outpatient Encounter Medications as of 02/10/2023 Medication Sig Dispense Refill ??? apixaban (Eliquis) 5 MG Tablet Take 1 Tablet by mouth 2 times daily. Indications: Prevention ofUnwanted Clot in Veins 56 Tablet 0 ??? aspirin EC 81 MG Tablet Delayed Response Take 81 mg by mouth daily. ??? atorvastatin (LIPITOR) 40 MG Tablet ??? Calcium Carb-Cholecalciferol (CALCIUM 600 + D PO) Take by mouth 2 times daily. ??? cyanocobalamin 1000 MCG Tablet Take 1 tablet by mouth daily 30 Tab 0 ??? ergocalciferol (VITAMIN D) 20118 UNIT Capsule Take 50,000 Units by mouth once a week. ??? [DISCONTINUED] ezetimibe (ZETIA) 10 MG Tablet ??? [DISCONTINUED] ferrous sulfate 325 (65 Fe) MG Tablet Take 1 Tab by mouth daily. ??? furosemide (LASIX) 40 MG Tablet Take 40 mg by mouth daily. ??? [DISCONTINUED] gabapentin (NEURONTIN) 300 MG Capsule gabapentin 300 mg capsule TAKE 1 CAPSULE BY MOUTH ONCE DAILY AT BEDTIME FOR 30 DAYS ??? irbesartan (AVAPRO) 150 MG Tablet Take 150 mg by mouth daily. ??? labetalol (NORMODYNE) 200 MG Tablet Take 200 mg by mouth 2 times daily. ??? [DISCONTINUED] lisinopril (PRINIVIL, ZESTRIL) 20 MG Tablet ??? pantoprazole (PROTONIX) 40 MG Tablet Delayed Response TAKE 1 TABLET BY MOUTH IN THE MORNING ??? potassium chloride SA (KLORCON M) 20 MEQ Tablet Controlled Release Take 20 mEq by mouth 2 timesdaily. ??? pregabalin (LYRICA) 50 MG Capsule Take 50 mg by mouth 3 times daily. ??? sodium bicarbonate 650 MG Tablet Take 650 mg by mouth 2 times daily. ??? tadalafil (CIALIS) 20 MG Tablet TAKE 1 TABLET BY MOUTH ONCE DAILY NEEDED ??? traMADol (ULTRAM) 50 MG Tablet 0 ??? [] cyanocobalamin (VITAMIN B-12) injection 1,000 mcg No facility-administered encounter medications on file as of 02/10/2023. Labs: No visits with results within 7 Day(s) from this visit. Latest known visit with results is: Lab on 12/04/2022 Component Date Value Ref Range Status ??? Vitamin B12 12/04/2022 455 180 - 914 pg/mL Final ??? WBC 12/04/2022 6.5 4.0 - 10.0 10*3/uL Final ??? HGB 12/04/2022 11.6 (L) 13.7 - 17.5 g/dL Final ??? HCT 12/04/2022 35.7 (L) 40.1 - 51.0 % Final ??? PLT 12/04/2022 133 (L) 163 - 369 10*3/uL Final ??? MPV 12/04/2022 9.2 (L) 9.4 - 12.4 fL Final ??? RBC 12/04/2022 3.82 (L) 4.63 - 6.08 10*6/uL Final ??? MCV 12/04/2022 94 79 - 95 fL Final ??? MCH 12/04/2022 30.4 25.6 - 32.2 pg Final ??? MCHC 12/04/2022 32.5 32.2 - 36.5 g/dL Final ??? RDW 12/04/2022 13.6 11.6 - 14.4 % Final ??? Absolute Neutrophil Count 12/04/2022 4,940 cells/uL Final ??? Absolute Seg Count 12/04/2022 4,940 1,440 - 6,600 cells/uL Final ??? Absolute Lymph Count 12/04/2022 910 760 - 4,000 cells/uL Final ??? Absolute [place] Count 12/04/2022 325 160 - 1,200 cells/uL Final ??? Absolute Eos Count 12/04/2022 325 (H) 0 - 300 cells/uL Final ??? Segmented Neutrophils 12/04/2022 76 (H) 36 - 66 % Final ??? Lymphocytes 12/04/2022 14 (L) 19 - 40 % Final ??? Monocytes 12/04/2022 5 4 - 12 % Final ??? Eosinophils 12/04/2022 5 (H) 0 - 3 % Final ??? WBC Estimate 12/04/2022 Normal Final ??? Platelet Estimate 12/04/2022 Low Final ??? RBC Morphology 12/04/2022 Normal Final ??? Glucose 12/04/2022 77 70 - 105 mg/dL Final ??? Blood Urea Nitrogen 12/04/2022 32 (H) 7 - 25 mg/dL Final ??? Creatinine 12/04/2022 2.1 (H) 0.7 - 1.3 mg/dL Final ??? Sodium 12/04/2022 139 136 - 145 mEq/L Final ??? Potassium 12/04/2022 5.0 3.5 - 5.1 mEq/L Final ??? Chloride 12/04/2022 107 98 - 107 mEq/L Final ??? Bicarbonate 12/04/2022 24 21 - 31 mEq/L Final ??? Total Bilirubin 12/04/2022 0.8 0.3 - 1.0 mg/dL Final ??? Alk. Phosphatase 12/04/2022 105 (H) 34 - 104 U/L Final ??? Aspartate Aminotransferase 12/04/2022 10 (L) 13 - 39 U/L Final ??? Alanine Aminotransferase 12/04/2022 12 7 - 52 U/L Final ??? Total Protein 12/04/2022 6.6 6.4 - 8.9 g/dL Final ??? Albumin 12/04/2022 4.1 3.5 - 5.7 g/dL Final ??? Calcium 12/04/2022 8.3 (L) 8.6 - 10.3 mg/dL Final ??? Anion Gap 12/04/2022 13.0 7.0 - 15.0 mEq/L Final ??? Globulin 12/04/2022 2.5 2.0 - 3.5 g/dL Final ? ? EGFR 12/04/2022 33 (L) >60 ml/min/1.73m2 Final Comment: This eGFR is calculated using 2020 CKD-EPI Creatinine equation without race modifier based on the NKF-ASN task force recommendations ??? IRON 12/04/2022 57 50 - 212 ug/dL Final ??? UIBC 12/04/2022 182 155 - 355 ug/dL Final ??? TIBC 12/04/2022 239 (L) 261 - 478 ug/dl Final ??? % Saturation 12/04/2022 24 20 - 50 % Final ??? Ferritin 12/04/2022 414 (H) 24 - 336 ng/mL Final ? ? Folate 12/04/2022 9.80 >=5.90 ng/mL Final INE TECHNICIAN INE TECHNICIAN documented in this encounter Plan of Treatment Upcoming Encounters Date Type Department Care Team (Late st Contact Info) Description 04/07/2024 11:10 AM TURBINE TECHNICIAN Lab [facility] [address] [phone] Lab, [facility] 04/07/2024 11:15 AM TURBINE TECHNICIAN Clinical Support [facility] [address] [phone] Nurse, [facility] 05/12/2024 11:00 AM TURBINE TECHNICIAN Lab [facility] [address] [phone] Lab, [facility] 05/12/2024 11:15 AM TURBINE TECHNICIAN Office Visit [facility] [address] [phone] Kev Moser MD [address] [place] [phone] 05/12/2024 11:30 AM TURBINE TECHNICIAN Clinical Support [facility] [address] [phone] Nurse, [facility] documented as of this encounter Visit Diagnoses Diagnosis Vitamin B 12 deficiency- Primary Other B-complex deficiencies 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 Anemia, unspecified type Stage 3a chronic kidney disease (HCC) documented in this encounter Additional Health Concerns Assessment Noted Time PHQ-9 Depression Total Score: 0 11/25/19 21 11:34 AM CDT documented as of this encounter Care Teams Mainframe Applications Developer Relationship Specialty Start Date End Date Scott Oneill MD PCP - General Internal Medicine 04/29/17 Tavo Mishra MD [address] [address] Internal Medicine 04/29/17 Gilmer Barnard MD [address] [address] Consulting Physician Internal Medicine 08/28/17 4 Kev Moser MD [address] [place] [phone] Consulting Physician Oncology 02/09/20 documented as of this encounter
--- OUTSIDE RECORDS SUMMARY | 2024-04-04 01:28 | XMS_ITS | Encounter Summary ---
Author Organization [facility] Address [address] [place] [address] Phone Care Team Providers Care Marketing Financial Analyst Name Role Phone Scott Oneill MD Primary Care Provider [phone] Tavo Mishra MD Unavailable [phone] Gilmer Barnard MD Unavailable [phone] Kev Moser MD Unavailable [phone] Reason for Visit * Reason Comments B12 Injection Other Eliquis Sample Dispe nse * Episode Based Medications (Routine) - Authorized Specialty Diagnoses / Procedures Referred By Contamy t Referred To Contact Diagnoses Vitamin B 12 deficiency Procedures VITAMIN B12 INJ RANGE DOSE 1-1,000 MCG Kev Moser MD [address] [place] [phone] Phone: tel: fax: [facility] [address] [address] Phone: tel: fax: Referral ID Status Reason Start Date Expiration Date V isits Requested Visits Authorized [id number] Authorized 03/06/2022 03/30/2027 1 1 Encounter Details Date Type Department Care Team (Latest Contact Info) Description 01/13/2023 10:30 AM CDT Clinical Support [facility] [address] [phone] Nurse, [facility] [place] Vitamin B 12 deficiency (Primary Dx); Other autoimmune hemolytic anemia (HCC) [...] on file 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 No / Unsure 01/13/2023 11:26 AM CDT documented as of this encounter Progress Notes * Afshan Harper RN - 01/13/2023 10:30 AM CDT Patient tolerated B12 injection well to left arm. Band-aid applied. Patient performance status has not changed since arrival to the clinic. Patient discharged per ambulation unaccompanied. * Fritz Pena RN - 01/13/2023 10:30 AM CDT Eliquis 5mg sample dispense Take one tablet by mouth twice daily. 4 boxes given (56 tabs) LOT#:??[id number] EXP:??07/23 documented in this encounter Miscellaneous Notes * Addendum Note - Fritz Pena RN - 01/13/2023 10:30 AM CDTAddended by: FRITZ PENA on: 01/14/2023 11:48 AM Modules accepted: Orders documented in this encounter Plan of Treatment Upcoming Encounters Date Type Department Care Team (Late st Contact Info) Description 04/07/2024 11:10 AM MARKETING PROJECT MANAGER Lab [facility] [address] [phone] Lab, [facility] 04/07/2024 11:15 AM MARKETING PROJECT MANAGER Clinical Support [facility] [address] [phone] Nurse, [facility] 05/12/2024 11:00 AM MARKETING PROJECT MANAGER Lab [facility] [address] [phone] Lab, [facility] 05/12/2024 11:15 AM MARKETING PROJECT MANAGER Office Visit [facility] [address] [phone] Kev Moser MD [address] [place] [phone] 05/12/2024 11:30 AM MARKETING PROJECT MANAGER Clinical Support [facility] [address] [phone] Nurse, [facility] documented as [...] 1,000 mcg, Subcutaneous, ONCE, 1 dose, On Fri01/13/23 at 1100, To be given 1 week prior to Chemotherapy. Route IM or SUBQ.Indications:Vitam in B 12 deficiency Given 01/13/2023 10:27 AM CDT 1,000 mcg Left Lateral Upper Arm documented in this encounter Additional Health Concerns Assessment Noted Time PHQ-9 Depression Total Score: 0 11/25/19 21 11:34 AM CDT documented as of this encounter Care Teams Marketing Financial Analyst Relationship Specialty Start Date End Date Scott Oneill MD PCP - General Internal Medicine 04/29/17 Tavo Mishra MD [address] [place] [phone] Internal Medicine 04/29/17 Gilmer Barnard MD [address] [place] [phone] Consulting Physician Internal Medicine 08/28/17 4 Kev Moser MD [address] [place] [phone] Consulting Physician Oncology 02/09/20 documented as of this encounter
--- OUTSIDE RECORDS SUMMARY | 2024-04-04 01:28 | XMS_ITS | Encounter Summary ---
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 No / Unsure 01/13/2023 11:26 AM CDT documented as of this encounter Functional Status * Question Answer Date of Assessment Author Little interest or pleasure in doing things Not at all 02/10/2023 11:31 AM Yesica Oquendo CMA Feeling down, depressed, or hopeless Not at all 02/10/2023 11:31 AM REVENUE COORDINATOR Alo Barber CMA * Over the past 2 weeks, how often have you been bothered by any of the following problems? Question Answer Date of Assessment Author Patient Health Questionnaire-2 Score 0 02/10/2023 11:31 AM REVENUE COORDINATOR Christy Barber CMA documented as of this encounter Plan of Treatment Upcoming Encounters Date Type Department Care Team (Late st Contact Info) Description 04/07/2024 11:10 AM REVENUE COORDINATOR Lab [facility] [address] [phone] Lab, [facility] 04/07/2024 11:15 AM REVENUE COORDINATOR Clinical Support [facility] [address] [phone] Nurse, [facility] 05/12/2024 11:00 AM REVENUE COORDINATOR Lab [facility] [address] [phone] Lab, [facility] 05/12/2024 11:15 AM REVENUE COORDINATOR Office Visit [facility] [address] [phone] Kev Moser MD [address] [place] [phone] 05/12/2024 11:30 AM REVENUE COORDINATOR Clinical Support [facility] [address] [phone] Nurse, [facility] documented as of this encounter Visit Diagnoses Not on filedocumented in this encounter Additional Health Concerns Assessment Noted Time PHQ-9 Depression Total Score: 0 11/25/19 21 11:34 AM CDT documented as of this encounter Care Teams Gas Appliance Servicer Relationship Specialty Start Date End Date Scott Oneill MD PCP - General Internal Medicine 04/29/17 Tavo Mishra MD [address] [phone] Internal Medicine 04/29/17 Gilmer Barnard MD [address] [address] Consulting Physician Internal Medicine 08/28/17 4 Kev Moser MD [address] [place] [phone] Consulting Physician Oncology 02/09/20 documented as of this encounter
--- OUTSIDE RECORDS SUMMARY | 2024-04-04 01:28 | XMS_ITS | Encounter Summary ---
Author Organization [facility] Address [address] [place] [address] Phone Care Team Providers Care Licensed Tax Consultant Name Role Phone Scott Oneill MD Primary Care Provider [phone] Tavo Mishra MD Unavailable [phone] Gilmer Barnard MD Unavailable [phone] Kev Moser MD Unavailable [phone] Reason for Visit * Reason Comments Therapeutic Injection B12 injection * Episode Based Medications (Routine) - Authorized Specialty Diagnoses / Procedures Referred By Contamy t Referred To Contact Diagnoses Vitamin B 12 deficiency Procedures VITAMIN B12 INJ RANGE DOSE 1-1,000 MCG Kev Moser MD [address] [place] [phone] Phone: tel: fax: [facility] [address] [address] Phone: tel: fax: Referral ID Status Reason Start Date Expiration Date V isits Requested Visits Authorized [id number] Authorized 03/06/2022 03/30/2027 1 1 Encounter Details Date Type Department Care Team (Latest Contact Info) Description 07/02/2023 11:30 AM CDT Clinical Support [facility] [address] [phone] Nurse, Gricelda Lopes [place] Vitamin B 12 deficiency (Primary Dx); Other [...] on file 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 Question Answer Date of Assessment Author Patient Health Questionnaire-2 Score 0 07/02/2023 11:14 AM SILVERIOT Christy Barber CMA documented as of this encounter Progress Notes * Fritz Pena RN - 07/02/2023 11:30 AM CDT Dispensed: Eliquis 5 mg tablets 2 boxes given (28 tabs) LOT#: [id number] EXP: 08/2024 * Maia Garza RMA - 07/02/2023 11:30 AM CDT Patient in for B12 injection. Tolerated well to left arm. Band-aid applied. No change in patient performance status since arrival to clinic. Patient discharged ambulatory. documented in this encounter Plan of Treatment Upcoming Encounters Date Type Department Care Team (Late st Contact Info) Description 04/07/2024 11:10 AM AVIONICS ENGINEER Lab [facility] [address] [phone] Lab, [facility] 04/07/2024 11:15 AM AVIONICS ENGINEER Clinical Support [facility] [address] [phone] Nurse, [facility] 05/12/2024 11:00 AM AVIONICS ENGINEER Lab [facility] [address] [phone] Lab, [facility] 05/12/2024 11:15 AM AVIONICS ENGINEER Office Visit [facility] [address] [phone] Kev Moser MD [address] [place] [phone] 05/12/2024 11:30 AM AVIONICS ENGINEER Clinical Support [facility] [address] [phone] Nurse, [facility] documented as of this encounter Visit Diagnoses Diagnosis Vitamin B 12 deficiency- Primary Other B-complex deficiencies Other autoimmune hemolytic anemia (HCC) documented in this encounter Administered Medications Inactive Administered Medications - up to 3 most recent administrations Medication Order MAR Action Action Date Dose Rate Site cyanocobalamin (VITAMIN B-12) injection 1,000 mcg 1,000 mcg, Subcutaneous, ONCE, 1 dose, On Fri07/02/23 at 1230, To be given 1 week prior to Chemotherapy. Route IM or SUBQ.Indications:Vitam in B 12 deficiency Given 07/02/2023 12:05 PM CDT 1,000 mcg Left Lateral Upper Arm documented in this encounter Additional Health Concerns Assessment Noted Time PHQ-9 Depression Total Score: 0 11/25/19 21 11:34 AM CDT documented as of this encounter Care Teams Licensed Tax Consultant Relationship Specialty Start Date End Date Scott Oneill MD PCP - General Internal Medicine 04/29/17 Tavo Mishra MD [address] [place] [phone] Internal Medicine 04/29/17 Gilmer Barnard MD [address] [place] [phone] Consulting Physician Internal Medicine 08/28/17 4 Kev Moser MD [address] [place] [phone] Consulting Physician Oncology 02/09/20 documented as of this encounter
--- OUTSIDE RECORDS SUMMARY | 2024-04-04 01:28 | XMS_ITS | Encounter Summary ---
Author Organization [facility] Address [address] [place] [address] Phone Care Team Providers Care Neurology Nurse Name Role Phone Scott Oneill MD Primary Care Provider Tavo Mishra MD Unavailable [phone] Gilmer Barnard MD Unavailable [phone] Kev Moser MD Unavailable [phone] Reason for Visit * Reason Comments Medication Refill Encounter Details Date Type Department Care Team (Late st Contact Info) Description 09/26/2023 Refill [facility] [address] [place] [phone] Sindi Qiu, EARLY MORNING, PRODUCTION QUALITY ANALYST [address] [place] [address] Medication Refill Social History Tobacco [...] on file 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 Please fill if appropriate. documented in this encounter Plan of Treatment Upcoming Encounters Date Type Department Care Team (Late st Contact Info) Description 04/07/2024 11:10 AM RADIO BOARD OPERATOR Lab [facility] [address] [address] Lab, [facility] 04/07/2024 11:15 AM RADIO BOARD OPERATOR Clinical Support [facility] [address] [phone] Nurse, [facility] 05/12/2024 11:00 AM RADIO BOARD OPERATOR Lab [facility] [address] [phone] Lab, [facility] 05/12/2024 11:15 AM RADIO BOARD OPERATOR Office Visit [facility] [address] [phone] Kev Moser MD [address] [place] [phone] 05/12/2024 11:30 AM RADIO BOARD OPERATOR Clinical Support [facility] [address] [phone] Nurse, [facility] documented as of this encounter Visit Diagnoses Not on filedocumented in this encounter Additional Health Concerns Assessment Noted Time PHQ-9 Depression Total Score: 0 11/25/19 21 11:34 AM CDT documented as of this encounter Care Teams Neurology Nurse Relationship Specialty Start Date End Date Scott Oneill MD PCP - General Internal Medicine 04/29/17 Tavo Mishra MD [address] [address] Internal Medicine 04/29/17 Gilmer Barnard MD [address] [place] [address] Consulting Physician Internal Medicine 08/28/17 4 Kev Moser MD [address] [place] [phone] Consulting Physician Oncology 02/09/20 documented as of this encounter
--- OUTSIDE RECORDS SUMMARY | 2024-04-04 01:28 | XMS_ITS | Encounter Summary ---
Author Organization [facility] Address [address] [place] [address] Phone Care Team Providers Care Instructional Interventionist Name Role Phone Scott Oneill MD Primary Care Provider [phone] Tavo Mishra MD Unavailable [phone] Gilmer Barnard MD Unavailable [phone] Kev Moser MD Unavailable Reason for Referral * Consult, Test & Initiate Treatment (Routine) - Closed Specialty Diagnoses / Procedures Referred By Rocyk blancas Referred To Contact Diagnoses Other autoimmune hemolytic anemia (HCC) Kev Moser MD [address] [place] [address] Phone: tel: fax: Fritz Boucher MD [address] [facility] [address] [place] [address] Phone: tel: fax: Referral ID Status Reason Start Date Expiration Date Visits Re quested Visits Authorized [id number] Closed 05/27/2023 1 1 Scheduling Instructions Britton is being referred to [facility] Dermat[facility]oy or other specialist in patient's insurance network for possible cancer on left foot big toe. See below for Britton's current medications, allergies and problem list. CURRENT MEDS: Current Outpatient Medications: albuterol 108 (90 Base) MCG/ACT Aerosol Solution, INHALE 2 PUFFS BY MOUTH EVERY 4 HOURS NEEDED FOR SHORTNESS OF BREATH FOR WHEEZING (Patient not taking: Reported on 04/02/2023), Disp: , Rfl: Anoro Ellipta 62.5-25 MCG/ACT AEROSOL POWDER, BREATH ACTIVATED, INHALE 1 PUFF BY MOUTH ONCE DAILY, Disp: , Rfl: apixaban (Eliquis) 5 MG Tablet, Take 1 Tablet by mouth 2 times daily. Indications: Prevention of Unwanted Clot in Veins, Disp: 56 Tablet, Rfl: 0 aspirin EC 81 MG Tablet Delayed Response, Take 81 mg by mouth daily., Disp: , Rfl: atorvastatin (LIPITOR) 40 MG Tablet, , Disp: , Rfl: Calcium Carb-Cholecalciferol (CALCIUM 600 + D PO), Take by mouth 2 times daily., Disp: , Rfl: cyanocobalamin 1000 MCG Tablet, Take 1 tablet by mouth daily, Disp: 30 Tab, Rfl: 0 ergocalciferol (VITAMIN D) 44415 UNIT Capsule, Take 50,000 Units by mouth once a week., Disp: , Rfl: ferrous sulfate 325 (65 Fe) MG Tablet, Take 1 Tablet by mouth daily., Disp: 30 Tablet, Rfl: 2 furosemide (LASIX) 40 MG Tablet, Take 40 mg by mouth daily., Disp: , Rfl: irbesartan (AVAPRO) 150 MG Tablet, Take 150 mg by mouth daily., Disp: , Rfl: labetalol (NORMODYNE) 200 MG Tablet, Take 200 mg by mouth 2 times daily., Disp: , Rfl: pantoprazole (PROTONIX) 40 MG Tablet Delayed Response, TAKE 1 TABLET BY MOUTH IN THE MORNING, Disp: , Rfl: potassium chloride SA (KLORCON M) 20 MEQ Tablet Controlled Release, Take 20 mEq by mouth 2 times daily., Disp: , Rfl: pregabalin (LYRICA) 50 MG Capsule, Take 50 mg by mouth 3 times daily., Disp: , Rfl: sodium bicarbonate 650 MG Tablet, Take 650 mg by mouth 2 times daily., Disp: , Rfl: tadalafil (CIALIS) 20 MG Tablet, TAKE 1 TABLET BY MOUTH ONCE DAILY NEEDED, Disp: , Rfl: traMADol (ULTRAM) 50 MG Tablet, , Disp: , Rfl: 0 No current facility-administered medications for this visit. ALLERGIES: No Known Allergies PROBLEM LIST: Patient Active Problem List: Stage 3 chronic kidney disease (HCC) Glomerulonephritis Hemolytic anemia (HCC) Iron deficiency anemia due to sideropenic dysphagia Myelofibrosis (HCC) Vitamin B 12 deficiency MSHIP AGENT Encounter Details Date Type Department Care Team (Late st Contact Info) Description 05/27/2023 Telephone [facility] [address] [place] [address] Kev Moser MD [address] [place] [phone] Social History Tobacco Use Types Packs/Day [...] on file Legal Sex Male 3:42 PM STEAMSHIP AGENT Gender Identity Not on file Sexual Orientation Not on file documented as of this encounter Miscellaneous Notes * Addendum Note - Antony Hines RN - 05/27/2023 4:21 PM CSTAddended by: ANTONY HINES on: 05/27/2023 04:21 PM Modules accepted: Orders MSHIP AGENT * Telephone Encounter - Antony Hines RN - 05/27/2023 4:16 PM CST Order placed for referral to [facility] Dermatology. Please send referral. MSHIP AGENT MSHIP AGENT * Telephone Encounter - Antony Hines RN - 05/27/2023 4:10 PM CST Images from the original note were not included. Kev Moser MD Hund, Veronica M, RN; [facility] Nurse Pool 31 minutes ago (3:37 PM) [facility] not for him, he needs to see DERMATOLOGY MSHIP AGENT * Telephone Encounter - Xochitl Campos RN - 05/27/2023 1:17 PM CST Patient calling he saw a foot doctor and he believes Britton has a cancer on his big toe left foot. Britton is asking if you would be willing to look at this vs. Being sent to another oncologist? F/U OV scheduled for 07/01 Please advise MSHIP AGENT documented in this encounter Plan of Treatment Upcoming Encounters Date Type Department Care Team (Late st Contact Info) Description 04/07/2024 11:10 AM STEAMSHIP AGENT Lab [facility] [address] [phone] Lab, [facility] 04/07/2024 11:15 AM STEAMSHIP AGENT Clinical Support [facility] [address] [phone] Nurse, [facility] 05/12/2024 11:00 AM STEAMSHIP AGENT Lab [facility] [address] [phone] Lab, [facility] 05/12/2024 11:15 AM STEAMSHIP AGENT Office Visit [facility] [address] [phone] Kev Moser MD [address] [place] [phone] 05/12/2024 11:30 AM STEAMSHIP AGENT Clinical Support [facility] [address] [phone] Nurse, [facility] Scheduled Referrals Name Type Priority Associated Diagnoses Order Schedule EXTERNAL DERMATOLOGY REFERRAL HST Outpatient Referral Routine Other autoimmune hemolytic anemia (HCC) Expected: 05/27/2023, Expires: 05/27/2024 documented as of this encounter Visit Diagnoses Diagnosis Other autoimmune hemolytic anemia (HCC)- Primary documented in this encounter Additional Health Concerns Assessment Noted Time PHQ-9 Depression Total Score: 0 11/25/19 21 11:34 AM CDT documented as of this encounter Care Teams Instructional Interventionist Relationship Specialty Start Date End Date Scott Oneill MD PCP - General Internal Medicine 04/29/17 Tavo Mishra MD [address] [place] [address] Internal Medicine 04/29/17 Gilmer Barnard MD [address] [place] [address] Consulting Physician Internal Medicine 08/28/17 4 Kev Moser MD [address] [place] [phone] Consulting Physician Oncology 02/09/20 documented as of this encounter
--- OUTSIDE RECORDS SUMMARY | 2024-04-04 01:28 | XMS_ITS | Encounter Summary ---
Author Organization [employer] Care Team Providers Care Walking Dragline Operator Name Role Phone Scott Oneill MD Primary Care Provider Tavo Mishra MD Unavailable [phone] Gilmer Barnard MD Unavailable [phone] Kev Moser MD Unavailable [phone] Encounter Details Date Type Department Care Team (Latest Contact Info) Description 06/20/2023 Travel Social History Tobacco Use Types Packs/Day [...] on file Legal Sex Male 3:42 PM MANUFACTURING ENGINEER Gender Identity Not on file Sexual Orientation Not on file documented as of this encounter Plan of Treatment Upcoming Encounters Date Type Department Care Team (Late st Contact Info) Description 04/07/2024 11:10 AM MANUFACTURING ENGINEER Lab [facility] [address] [phone] Lab, [facility] 04/07/2024 11:15 AM MANUFACTURING ENGINEER Clinical Support [facility] [address] [phone] Nurse, [facility] 05/12/2024 11:00 AM MANUFACTURING ENGINEER Lab [facility] [address] [phone] Lab, [facility] 05/12/2024 11:15 AM MANUFACTURING ENGINEER Office Visit [facility] [address] [phone] Kev Moser MD [address] [place] [phone] 05/12/2024 11:30 AM MANUFACTURING ENGINEER Clinical Support [facility] [address] [phone] Nurse, [facility] documented as of this encounter Visit Diagnoses Not on filedocumented in this encounter Additional Health Concerns Assessment Noted Time PHQ-9 Depression Total Score: 0 11/25/19 21 11:34 AM CDT documented as of this encounter Care Teams Walking Dragline Operator Relationship Specialty Start Date End Date Scott Oneill MD PCP - General Internal Medicine 04/29/17 Tavo Mishra MD [address] [address] Internal Medicine 04/29/17 Gilmer Barnard MD [address] [address] Consulting Physician Internal Medicine 08/28/17 4 Kev Moser MD [address] [place] [phone] Consulting Physician Oncology 02/09/20 documented as of this encounter
--- OUTSIDE RECORDS SUMMARY | 2024-04-04 01:28 | XMS_ITS | Encounter Summary ---
Author Organization [facility] Address [address] [place] [address] Phone Care Team Providers Care Home Demonstration Agent Name Role Phone Scott Oneill MD Primary Care Provider [phone] Tavo Mishra MD Unavailable [phone] Gilmer Barnard MD Unavailable [phone] Kev Moser MD Unavailable Reason for Visit * Reason Comments Other Eliquis sample dispe nse Encounter Details Date Type Department Care Team (Latest Contact Info) Description 04/22/2023 12:30 PM BED RUBBER Clinical Support [facility] [address] [phone] Nurse, [facility] Other autoimmune hemolytic anemia (HCC) Social [...] on file Legal Sex Male 3:42 PM BED RUBBER Gender Identity Not on file Sexual Orientation Not on file documented as of this encounter Progress Notes * Fritz Pena RN - 04/22/2023 12:30 PM CST Dispensed: Eliquis 5 mg tablets 4 boxes given (56 tabs) LOT#:??[id number] X3 BOXES EXP:??11/2024 LOT#: [id number] X1 EXP: 06/2024 RUBBER documented in this encounter Plan of Treatment Upcoming Encounters Date Type Department Care Team (Late st Contact Info) Description 04/07/2024 11:10 AM BED RUBBER Lab [facility] [address] [address] Lab, [facility] 04/07/2024 11:15 AM BED RUBBER Clinical Support [facility] [address] [phone] Nurse, [facility] 05/12/2024 11:00 AM BED RUBBER Lab [facility] [address] [address] Lab, [facility] 05/12/2024 11:15 AM BED RUBBER Office Visit [facility] [address] [phone] Kev Moser MD [address] [place] [phone] 05/12/2024 11:30 AM BED RUBBER Clinical Support [facility] [address] [phone] Nurse, [facility] documented as of this encounter Visit Diagnoses Diagnosis Other autoimmune hemolytic anemia (HCC) documented in this encounter Additional Health Concerns Assessment Noted Time PHQ-9 Depression Total Score: 0 11/25/19 21 11:34 AM CDT documented as of this encounter Care Teams Home Demonstration Agent Relationship Specialty Start Date End Date Scott Oneill MD PCP - General Internal Medicine 04/29/17 Tavo Mishra MD [address] [place] [address] Internal Medicine 04/29/17 Gilmer Barnard MD [address] [place] [address] Consulting Physician Internal Medicine 08/28/17 4 Kev Moser MD [address] [place] [phone] Consulting Physician Oncology 02/09/20 documented as of this encounter
--- OUTSIDE RECORDS SUMMARY | 2024-04-04 01:28 | XMS_ITS | Encounter Summary ---
Author Organization [employer] Care Team Providers Care Front End Application Developer Name Role Phone Scott Oneill MD Primary Care Provider [phone] Tavo Mishra MD Unavailable [phone] Gilmer Barnard MD Unavailable Kev Moser MD Unavailable [phone] Encounter Details Date Type Department Care Team (Latest Contact Info) Description 07/02/2023 Travel Social History Tobacco Use Types Packs/Day [...] on file Legal Sex Male 3:42 PM SPECIAL EVENTS ASSISTANT Gender Identity Not on file Sexual Orientation Not on file documented as of this encounter Functional Status * Question Answer Date of Assessment Author Little interest or pleasure in doing things Not at all 07/02/2023 11:14 AM Yesica Ace CMA Feeling down, depressed, or hopeless Not at all 07/02/2023 11:14 AM Alo Ace CMA * Over the past 2 weeks, how often have you been bothered by any of the following problems? Question Answer Date of Assessment Author Patient Health Questionnaire-2 Score 0 07/02/2023 11:14 AM CDT Christy Barber CMA documented as of this encounter Plan of Treatment Upcoming Encounters Date Type Department Care Team (Late st Contact Info) Description 04/07/2024 11:10 AM SPECIAL EVENTS ASSISTANT Lab [facility] [address] [phone] Lab, [facility] 04/07/2024 11:15 AM SPECIAL EVENTS ASSISTANT Clinical Support [facility] [address] [phone] Nurse, [facility] 05/12/2024 11:00 AM SPECIAL EVENTS ASSISTANT Lab [facility] [address] [phone] Lab, [facility] 05/12/2024 11:15 AM SPECIAL EVENTS ASSISTANT Office Visit [facility] [address] [phone] Kev Moser MD [address] [place] [phone] 05/12/2024 11:30 AM SPECIAL EVENTS ASSISTANT Clinical Support [facility] [address] [phone] Nurse, [facility] documented as of this encounter Visit Diagnoses Not on filedocumented in this encounter Additional Health Concerns Assessment Noted Time PHQ-9 Depression Total Score: 0 11/25/19 21 11:34 AM CDT documented as of this encounter Care Teams Front End Application Developer Relationship Specialty Start Date End Date Scott Oneill MD PCP - General Internal Medicine 04/29/17 aTvo Mishra MD [address] [facility] [address] [place] [address] Internal Medicine 04/29/17 Gilmer Barnard MD [address] [phone] Consulting Physician Internal Medicine 08/28/17 4 Kev Moser MD [address] [place] [phone] Consulting Physician Oncology 02/09/20 documented as of this encounter
--- OUTSIDE RECORDS SUMMARY | 2024-04-04 01:28 | XMS_ITS | Encounter Summary ---
Author Organization [employer] Care Team Providers Care Manager Maintenance Name Role Phone Scott Oneill MD Primary Care Provider [phone] Tavo Mishra MD Unavailable [phone] Gilmer Barnard MD Unavailable [phone] Kev Moser MD Unavailable [phone] Encounter Details Date Type Department Care Team (Latest Contact Info) Description 04/22/2023 Travel Social History Tobacco Use Types Packs/Day [...] on file Legal Sex Male 3:42 PM PROJECT MANAGER RETAIL Gender Identity Not on file Sexual Orientation Not on file documented as of this encounter Plan of Treatment Upcoming Encounters Date Type Department Care Team (Late st Contact Info) Description 04/07/2024 11:10 AM PROJECT MANAGER RETAIL Lab [facility] [address] [phone] Lab, [facility] 04/07/2024 11:15 AM PROJECT MANAGER RETAIL Clinical Support [facility] [address] [phone] Nurse, [facility] 05/12/2024 11:00 AM PROJECT MANAGER RETAIL Lab [facility] [address] [phone] Lab, [facility] 05/12/2024 11:15 AM PROJECT MANAGER RETAIL Office Visit [facility] [address] [phone] Kev Moser MD [address] [place] [phone] 05/12/2024 11:30 AM PROJECT MANAGER RETAIL Clinical Support [facility] [address] [phone] Nurse, [facility] documented as of this encounter Visit Diagnoses Not on filedocumented in this encounter Additional Health Concerns Assessment Noted Time PHQ-9 Depression Total Score: 0 11/25/19 21 11:34 AM CDT documented as of this encounter Care Teams Manager Maintenance Relationship Specialty Start Date End Date Scott Oneill MD PCP - General Internal Medicine 04/29/17 Tavo Mishra MD [address] [address] Internal Medicine 04/29/17 Gilmer Barnard MD [address] [address] Consulting Physician Internal Medicine 08/28/17 4 Kev Moser MD [address] [place] [phone] Consulting Physician Oncology 02/09/20 documented as of this encounter
--- OUTSIDE RECORDS SUMMARY | 2024-04-04 01:28 | XMS_ITS | Encounter Summary ---
Author Organization [facility] Address [address] [place] [address] Phone Care Team Providers Care Assistant Guest Services Manager Name Role Phone Scott Oneill MD Primary Care Provider [phone] Tavo Mishra MD Unavailable [phone] Gilmer Barnard MD Unavailable [phone] Kev Moser MD Unavailable [phone] Reason for Visit * Reason Comments Follow-up Encounter Details Date Type Department Care Team (Late st Contact Info) Description 04/02/2023 11:15 AM COMMUNITY MARKETING MANAGER Office Visit [facility] [address] [place] [address] Sindi Qiu, OUTSIDE SALES MANAGER, SOCIAL SECURITY BENEFITS INTERVIEWER [address] [place] [address] Other autoimmune hemolytic anemia (HCC) (Primary Dx); Vitamin B 12 deficiency; Iron deficiency anemia due to sideropenic dysphagia Social History Tobacco Use Types Packs/Day Years [...] on file Legal Sex Male 3:42 PM COMMUNITY MARKETING MANAGER Gender Identity Not on file Sexual Orientation Not on file documented as of this encounter Last Filed Vital Signs Vital Sign Reading Time Taken Comments Blood Pressure 142/86 04/02/2023 11:34 AM COMMUNITY MARKETING MANAGER Pulse 67 04/02/2023 11:34 AM COMMUNITY MARKETING MANAGER Temperature 37 ??C (98.6 ??F) 04/02/2023 11:34 AM COMMUNITY MARKETING MANAGER Respiratory Rate 18 04/02/2023 11:34 AM COMMUNITY MARKETING MANAGER Oxygen Saturation 93% 04/02/2023 11:34 AM COMMUNITY MARKETING MANAGER Inhaled Oxygen Concentration - - Weight 104.6 kg (230 lb 8 oz) 04/02/2023 11:34 A M COMMUNITY MARKETING MANAGER Height 165.1 cm (5' 5 ) 04/02/2023 11:34 AM COMMUNITY MARKETING MANAGER Body Mass Index 38.36 04/02/2023 11:34 AM COMMUNITY MARKETING MANAGER documented in this encounter Functional Status * Question Answer Date of Assessment Author Little interest or pleasure in doing things Not at all 04/02/2023 11:34 AM Yesica Oquendo CMA Feeling down, depressed, or hopeless Not at all 04/02/2023 11:34 AM COMMUNITY MARKETING MANAGER Alo Barber CMA * Over the past 2 weeks, how often have you been bothered by any of the following problems? Question Answer Date of Assessment Author Patient Health Questionnaire-2 Score 0 04/02/2023 11:34 AM Christy Oquendo CMA documented as of this encounter Progress Notes * Sindi Qiu APRN, CNP - 04/02/2023 11:15 AM CST Images from the original note were not included. Patient: Britton Nielsen Age: 68 y.o. : 1955 Encounter Dept: [facility] [place] Encounter Date: 04/02/2023 Care Team: Current Providers PCP: Scott Oneill MD Care Team Provider: Tavo Mishra MD Care Team Provider: Gilmer Barnard MD Care Team Provider: Kev Moser MD Encounter Provider: Sindi Qiu, VINOD, SOCIAL SECURITY BENEFITS INTERVIEWER Referring Provider: not found Nurse Practitioner: Sindi Qiu, OUTSIDE SALES MANAGER, SOCIAL SECURITY BENEFITS INTERVIEWER HISTORY OF PRESENT ILLNESS: Britton returns today for followup. He continues his B12 injections, duetoday. He is back on his Eliquis 5 mg daily. He has not had any intermittent hematuria. He did see Urology. They have ordered CT scan on him which is to be done on Friday. He also is being seen by Pulmonology, Dr. Ragsdale, who has ordered a chest CT on him. He has no major complaints today. DIAGNOSIS: 1. Glomerulonephritis, sclerosing (renal biopsy [...] 1. Gastroduodenal artery embolization at [facility] 05/2017. 2. Cytoxan 100 mg daily. 3. 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 PLAN: 1. Continue Eliquis 5 mg b.i.d. 2. Continue followup with Urology. 3. Continue followup with Pulmonology. 4. Labs today with CBC, CMP, iron studies, B12, folic acid. 5. Continue B12 injections. 6. Annual colonoscopy due in May. This is already scheduled. 7. Followup with us in 12 weeks for repeat labs and evaluation. 8. Call with any questions, problems, or concerns. Dr. Moser was present today in the office. TIME SPENT: REVIEW OF SYSTEMS: See [...] per Care Everywhere. Kev Moser MD, FACP Sindi Qiu, [facility] Vitals: Vitals: 04/02/23 1134 BP: 142/86 BP Location: Left Arm BP Position: Sitting BP Cuff Size: Regular Pulse: 67 Resp: 18 Temp: 98.6 ??F (37 ??C) TempSrc: Temporal SpO2: 93% Weight: 230 lb 8 oz (104.6 kg) Height: 5' 5 (1.651 m) Body surface area is 2.19 meters squared. Body mass index is 38.36 kg/m??. Pain Score: 4 Pain Loc: Finger (right pointer finger) Allergies: No Known Allergies PMH/SgH/FH/SH: Past medical, [...] Types: Cigarettes Quit date: 05/23/2011 Years since quittin.8 ??? Smokeless tobacco: Never Vaping Use ??? [...] Current Medications: Outpatient Encounter Medications as of 04/02/2023 Medication Sig Dispense Refill ??? albuterol 108 (90 Base) MCG/ACT Aerosol Solution INHALE 2 PUFFS BY MOUTH EVERY 4 HOURS NEEDED FOR SHORTNESS OF BREATH FOR WHEEZING (Patient not taking: Reported on 04/02/2023) ??? Anoro Ellipta 62.5-25 MCG/ACT AEROSOL POWDER, BREATH ACTIVATED INHALE 1 PUFF BY MOUTH ONCE DAILY ??? apixaban (Eliquis) 5 MG Tablet Take [...] 30 Tab 0 ??? ergocalciferol (VITAMIN D) 10954 UNIT Capsule Take 50,000 Units by mouth once a week. ??? furosemide (LASIX) 40 MG Tablet Take 40 mg by mouth daily. ??? irbesartan (AVAPRO) 150 MG Tablet Take 150 mg by mouth daily. ??? labetalol (NORMODYNE) 200 MG Tablet Take 200 mg by mouth 2 times daily. ??? pantoprazole (PROTONIX) 40 MG Tablet Delayed [...] ??? traMADol (ULTRAM) 50 MG Tablet 0 No facility-administered encounter medications on file as of 04/02/2023. Labs: Lab on 04/02/2023 Component Date Value Ref Range Status ??? Reticulocyte count 04/02/2023 2.50 (H) 0.51 - 1.81 % Final ??? RET-He 04/02/2023 29.60 28.20 - 36.60 pg Final Comment: RET-He is a direct assessment of incorporation of iron into erythrocyte hemoglobin. It provides an indirect measure of the iron available for new erythropoiesis over past 2-4 days. ??? IRON 04/02/2023 41 (L) 50 - 212 ug/dL Final ??? UIBC 04/02/2023 197 155 - 355 ug/dL Final ??? TIBC 04/02/2023 238 (L) 261 - 478 ug/dl Final ??? % Saturation 04/02/2023 17 (L) 20 - 50 % Final ??? Glucose 04/02/2023 121 (H) 70 - 105 mg/dL Final ??? Blood Urea Nitrogen 04/02/2023 32 (H) 7 - 25 mg/dL Final ??? Creatinine 04/02/2023 2.4 (H) 0.7 - 1.3 mg/dL Final ??? Sodium 04/02/2023 139 136 - 145 mEq/L Final ??? Potassium 04/02/2023 4.7 3.5 - 5.1 mEq/L Final ??? Chloride 04/02/2023 105 98 - 107 mEq/L Final ??? Bicarbonate 04/02/2023 24 21 - 31 mEq/L Final ??? Total Bilirubin 04/02/2023 0.7 0.3 - 1.0 mg/dL Final ??? Alk. Phosphatase 04/02/2023 83 34 - 104 U/L Final ??? Aspartate Aminotransferase 04/02/2023 9 (L) 13 - 39 U/L Final ??? Alanine Aminotransferase 04/02/2023 11 7 - 52 U/L Final ??? Total Protein 04/02/2023 6.8 6.4 - 8.9 g/dL Final ??? Albumin 04/02/2023 3.9 3.5 - 5.7 g/dL Final ??? Calcium 04/02/2023 8.6 8.6 - 10.3 mg/dL Final ??? Anion Gap 04/02/2023 14.7 7.0 - 15.0 mEq/L Final ??? Globulin 04/02/2023 2.9 2.0 - 3.5 g/dL Final ? ? EGFR 04/02/2023 28 (L) >60 ml/min/1.73m2 Final Comment: This eGFR is calculated using 2020 CKD-EPI Creatinine equation without race modifier based on the NKF-ASN task force recommendations ??? WBC 04/02/2023 5.8 4.0 - 10.0 10*3/uL Final ??? HGB 04/02/2023 11.1 (L) 13.7 - 17.5 g/dL Final ??? HCT 04/02/2023 35.3 (L) 40.1 - 51.0 % Final ??? PLT 04/02/2023 169 163 - 369 10*3/uL Final ??? MPV 04/02/2023 9.5 9.4 - 12.4 fL Final ??? RBC 04/02/2023 3.76 (L) 4.63 - 6.08 10*6/uL Final ??? MCV 04/02/2023 94 79 - 95 fL Final ??? MCH 04/02/2023 29.5 25.6 - 32.2 pg Final ??? MCHC 04/02/2023 31.4 (L) 32.2 - 36.5 g/dL Final ??? RDW 04/02/2023 15.6 (H) 11.6 - 14.4 % Final Cosigned by Kev Moser MD at 04/07/2023 10:18 AM COMMUNITY MARKETING MANAGER UNITY MARKETING MANAGER UNITY MARKETING MANAGER UNITY MARKETING MANAGER documented in this encounter Plan of Treatment Upcoming Encounters Date Type Department Care Team (Late st Contact Info) Description 04/07/2024 11:10 AM COMMUNITY MARKETING MANAGER Lab [facility] [address] [phone] Lab, [facility] 04/07/2024 11:15 AM COMMUNITY MARKETING MANAGER Clinical Support [facility] [address] [phone] Nurse, [facility] 05/12/2024 11:00 AM COMMUNITY MARKETING MANAGER Lab [facility] [address] [phone] Lab, [facility] 05/12/2024 11:15 AM COMMUNITY MARKETING MANAGER Office Visit [facility] [address] [phone] Kev Moser MD [address] [place] [phone] 05/12/2024 11:30 AM COMMUNITY MARKETING MANAGER Clinical Support [facility] [address] [phone] Nurse, [facility] documented as of this encounter Results * (ABNORMAL) RETICULOCYTE COUNT (RETIC) (07/02/2023 11:01 AM CDT) Reticulocyte count 2.23(H) 0.51 - 1.81 % [facility] RET-He 31.00 28.20 - 36.60 pg [facility] Comment: RET-He is a direct assessment of incorporation of iron into erythrocyte hemoglobin. It provides an indirect measure of the iron available for new erythropoiesis over past 2-4 days. Blood 07/02/2023 11:0 1 AM CDT [facility] - 07/02/2023 11:22 AM CDT Release to patient->Immediate us Sindi Qiu APRN, SOCIAL SECURITY BENEFITS INTERVIEWER HEMATOLOGY ORDERABLES Final Result Performing Organization Address City/[facility]/ZIP Co de Phone Number [facility] [address] [place] [address], [place] [phone] * (ABNORMAL) IRON W/ IRON BINDING [place] (07/02/2023 11:01 AM CDT) Pathologist [facility] IRON 58 50 - 212 ug/dL [facility] UIBC 175 155 - 355 ug/dL [facility] TIBC 233(L) 261 - 478 ug/dl [facility] % Saturation 25 20 - 50 % [facility] 07/02/2023 11:0 1 AM CDT [facility] - 07/02/2023 12:13 PM CDT Release to patient->Immediate us Sindi Qiu APRN, SOCIAL SECURITY BENEFITS INTERVIEWER LAB SEND OUTS Final Result [facility] [address] [place] [address], [place] [phone] * (ABNORMAL) FERRITIN (07/02/2023 11:01 AM CDT) Ferritin 431(H) 24 - 336 ng/mL [facility] Blood 07/02/2023 11:0 1 AM CDT Narrative [facility] - 07/03/2023 2:26 PM CDT Release to patient->Immediate us Sindi Qiu APRN, SOCIAL SECURITY BENEFITS INTERVIEWER CHEMISTRY ORDERABLES Final Result Performing Organization Address City/[facility]/ZIP Co de Phone Number [facility] [place] [address], [place] [phone] * FOLIC ACID (FOLATE) (07/02/2023 11:01 AM CDT) Folate 9.48 >=5.90 ng/mL [facility] Blood 07/02/2023 11:0 1 AM CDT [facility] - 07/03/2023 2:26 PM CDT Release to patient->Immediate IS THE PATIENT REQUIRED TO BE FASTING FOR 12 HOURS?->No us Sindi Qiu APRN, SOCIAL SECURITY BENEFITS INTERVIEWER CHEMISTRY ORDERABLES Final Result Performing Organization Address [facility] Co de Phone Number [facility] [place] [address], [place] [phone] * VITAMIN B12 (07/02/2023 11:01 AM CDT) Vitamin B12 379 180 - 914 pg/mL [facility] Blood 07/02/2023 11:0 1 AM CDT [facility] - 07/03/2023 2:26 PM CDT Release to patient->Immediate us Sindi Qiu APRN, SOCIAL SECURITY BENEFITS INTERVIEWER CHEMISTRY ORDERABLES Final Result [facility] [address] [place] [address], [place] [phone] * (ABNORMAL) COMPLETE BLOOD COUNT (CBC) WITH DIFF (07/02/2023 11:01 AM CDT) WBC 5.3 4.0 - 10.0 10*3/uL [facility] HGB 11.1(L) 13.7 - 17.5 g/dL [facility] HCT 34.5(L) 40.1 - 51.0 % [facility] PLT 131(L) 163 - 369 10*3/uL [facility] MPV 10.0 9.4 - 12.4 fL [facility] RBC 3.69(L) 4.63 - 6.08 10*6/uL [facility] MCV 94 79 - 95 fL [facility] MCH 30.1 25.6 - 32.2 pg [facility] MCHC 32.2 32.2 - 36.5 g/dL [facility] RDW 15.1(H) 11.6 - 14.4 % [facility] Absolute Neutrophil Count 3,915 cells/uL [facility] Absolute Seg Count 3,862 1,440 - 6,600 cells/uL [facility] Absolute Band Count 53 0 - 800 cells/uL [facility] Absolute Lymph Count 741(L) 760 - 4,000 cells/uL [facility] Absolute [place] Count 476 160 - 1,200 cells/uL [facility] Absolute Eos Count 159 0 - 300 cells/uL [facility] Segmented Neutrophils 73(H) 36 - 66 % [facility] Band Neutrophils 1 0 - 8 % [facility] Lymphocytes 14(L) 19 - 40 % [facility] Monocytes 9 4 - 12 % [facility] Eosinophils 3 0 - 3 % [facility] WBC Estimate Normal [facility] Platelet Estimate Low [facility] RBC Morphology Abnormal C[facility] R [facility] Anisocytosis 1+ [facility] Blood 07/02/2023 11:0 1 AM CDT Narrative [facility] - 07/02/2023 2:48 PM CDT Release to patient->Immediate Sindi Qiu APRN, [place] HEMATOLOGY ORDERABLES Final Result [facility] [place] [address], * (ABNORMAL) CMP (COMPREHENSIVE METABOLIC PANEL) (07/02/2023 11:01 AM CDT) Glucose 110(H) 70 - 105 mg/dL [facility] Blood Urea Nitrogen 34(H) 7 - 25 mg/dL [facility] Creatinine 2.2(H) 0.7 - 1.3 mg/dL [facility] Sodium 139 136 - 145 mEq/L [facility] Potassium 4.5 3.5 - 5.1 mEq/L [facility] Chloride 107 98 - 107 mEq/L [facility] Bicarbonate 23 21 - 31 mEq/L [facility] Total Bilirubin 0.8 0.3 - 1.0 mg/dL [facility] Alk. Phosphatase 75 34 - 104 U/L [facility] Aspartate Aminotransferase 11(L) 13 - 39 U/L [facility] Alanine Aminotransferase 11 7 - 52 U/L [facility] Total Protein 6.4 6.4 - 8.9 g/dL [facility] Albumin 3.9 3.5 - 5.7 g/dL [facility] Calcium 8.0(L) 8.6 - 10.3 mg/dL [facility] Anion Gap 13.5 7.0 - 15.0 mEq/L [facility] Globulin 2.5 2.0 - 3.5 g/dL [facility] EGFR 32(L) >60 ml/min/1. 73m2 [facility] Comment: This eGFR is calculated using 2020 CKD-EPI Creatinine equation without race modifier based on the NKF-ASN task force recommendations Blood 07/02/2023 11:0 1 AM CDT Narrative [facility] - 07/02/2023 12:13 PM CDT Release to patient->Immediate IS THE PATIENT REQUIRED TO BE FASTING FOR 8 HOURS?->No Sindi Qiu APRN, SOCIAL SECURITY BENEFITS INTERVIEWER CHEMISTRY ORDERABLES Final Result [facility] [address] [place] [phone], documented in this encounter Visit Diagnoses Diagnosis Other autoimmune hemolytic anemia (HCC)- Primary Vitamin B 12 deficiency Other B-complex deficiencies 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 deficiency Other B-complex deficiencies Iron deficiency anemia due to sideropenic dysphagia documented in this encounter Additional Health Concerns Assessment Noted Time PHQ-9 Depression Total Score: 0 11/25/19 21 11:34 AM CDT documented as of this encounter Care Teams Assistant Guest Services Manager Relationship Specialty Start Date End Date Scott Oneill MD PCP - General Internal Medicine 04/29/17 Tavo Mishra MD [id number] [facility] [address] [place] [address] [phone] Internal Medicine 04/29/17 Gilmer Barnard MD [address] [facility] [address] [place] [address] Consulting Physician Internal Medicine 08/28/17 4 Kev Moser MD [address] [place] [phone] Consulting Physician Oncology 02/09/20 documented as of this encounter
--- OUTSIDE RECORDS SUMMARY | 2024-04-04 01:28 | XMS_ITS | Encounter Summary ---
Author Organization [facility] Address [address] [place] [address] Phone Care Team Providers Care Fuel Cell Engineer Name Role Phone Scott Oneill MD Primary Care Provider [phone] Tavo Mishra MD Unavailable [phone] Gilmer Barnard MD Unavailable [phone] Kev Moser MD Unavailable [phone] Reason for Visit * Reason Comments Therapeutic Injection B12 * Episode Based Medications (Routine) - Authorized Specialty Diagnoses / Procedures Referred By Contac t Referred To Contact Diagnoses Vitamin B 12 deficiency Procedures VITAMIN B12 INJ RANGE DOSE 1-1,000 MCG Kev Moser MD [address] [place] [phone] Phone: tel: fax: [facility] [address] [address] Phone: tel: fax: Referral ID Status Reason Start Date Expiration Date V isits Requested Visits Authorized [id number] Authorized 03/06/2022 03/30/2027 1 1 Encounter Details Date Type Department Care Team (Latest Contact Info) Description 03/10/2023 11:00 AM STABLE MANAGER Clinical Support [facility] [address] [phone] Nurse, [facility] [place] Vitamin B 12 deficiency (Primary Dx) Social [...] on file Legal Sex Male 3:42 PM STABLE MANAGER Gender Identity Not on file Sexual Orientation Not on file documented as of this encounter Progress Notes * Afshan Harper RN - 03/10/2023 11:00 AM CST Patient tolerated B12 injection well. Band-aid applied. Patient performance status has not changed since arrival to the clinic. Patient discharged ambulatory unaccompanied. LE MANAGER documented in this encounter Plan of Treatment Upcoming Encounters Date Type Department Care Team (Late st Contact Info) Description 04/07/2024 11:10 AM STABLE MANAGER Lab [facility] [address] [phone] Lab, [facility] 04/07/2024 11:15 AM STABLE MANAGER Clinical Support [facility] [address] [phone] Nurse, [facility] 05/12/2024 11:00 AM STABLE MANAGER Lab [facility] [address] [phone] Lab, [facility] 05/12/2024 11:15 AM STABLE MANAGER Office Visit [facility] [address] [phone] Kev Moser MD [address] [place] [phone] 05/12/2024 11:30 AM STABLE MANAGER Clinical Support [facility] [address] [phone] Nurse, [facility] documented as of this encounter Visit Diagnoses Diagnosis Vitamin B 12 deficiency- Primary Other B-complex deficiencies documented in this encounter Administered Medications Inactive Administered Medications - up to 3 most recent administrations Medication Order MAR Action Action Date Dose Rate Site cyanocobalamin (VITAMIN B-12) injection 1,000 mcg 1,000 mcg, Subcutaneous, ONCE, 1 dose, On Fri03/10/23 at 1100, To be given 1 week prior to Chemotherapy. Route IM or SUBQ.Indications:Vitam in B 12 deficiency Given 03/10/2023 10:35 AM STABLE MANAGER 1,000 mcg Left Lateral Upper Arm documented in this encounter Additional Health Concerns Assessment Noted Time PHQ-9 Depression Total Score: 0 11/25/19 21 11:34 AM CDT documented as of this encounter Care Teams Fuel Cell Engineer Relationship Specialty Start Date End Date Scott Oneill MD PCP - General Internal Medicine 04/29/17 Tavo Mishra MD [address] [facility] [address] [place] [address] Internal Medicine 04/29/17 Gilmer Barnard MD [address] [address] Consulting Physician Internal Medicine 08/28/17 4 Kev Moser MD [address] [place] [phone] Consulting Physician Oncology 02/09/20 documented as of this encounter
--- OUTSIDE RECORDS SUMMARY | 2024-04-04 01:28 | XMS_ITS | Encounter Summary ---
Author Organization [facility] Address [address] [place] [address] Phone Care Team Providers Care Black Top Roller Name Role Phone Scott Oneill MD Primary Care Provider [phone] Tavo Mishra MD Unavailable [phone] Gilmer Barnard MD Unavailable [phone] Kev Moser MD Unavailable [phone] Encounter Details Date Type Department Care Team (Late st Contact Info) Description 02/06/2023 Telephone [facility] [address] [place] [address] Kev Moser MD [address] [place] [phone] Social History Tobacco Use Types Packs/Day [...] on file Legal Sex Male 3:42 PM CHECK OUT CLERK Gender Identity Not on file Sexual Orientation Not on file COVID-19 Exposure Response Date Recorded In the last 10 days, have yo u been in contact with someone who was confirmed or suspected to have Coronavirus/COVID-19? No / Unsure 01/13/2023 11:26 AM CDT documented as of this encounter Miscellaneous Notes * Telephone Encounter - Xochitl Campos RN - 02/06/2023 11:52 AM CST Images from the original note were not included. Kev Moser MD You; Cee Dc, HEAD CD REACTOR OPERATOR, PACKER FUSER 53 minutes ago (10:57 AM) MW Agree to stay there thanks K OUT CLERK * Telephone Encounter - Xochitl Campos RN - 02/06/2023 10:31 AM CST Patient calling to report that he is currently at [facility] and has been admitted to hospital forhaving blood in his urine. They are unsure of source, possibly related to blood thinners Patient has not been given bed and has been in ER bed for 12+hours, very uncomfortable and frustrated with his care there. Considering signing himself out. Advised by this nurse that blood in urine is not normal and he should consider staying at hospital to complete work up to figure out source of bleeding, after discussion with this nurse he will stay at hospital. K OUT CLERK documented in this encounter Plan of Treatment Upcoming Encounters Date Type Department Care Team (Late st Contact Info) Description 04/07/2024 11:10 AM CHECK OUT CLERK Lab [facility] [address] [address] Lab, [facility] 04/07/2024 11:15 AM CHECK OUT CLERK Clinical Support [facility] [address] [phone] Nurse, [facility] 05/12/2024 11:00 AM CHECK OUT CLERK Lab [facility] [address] [address] Lab, [facility] 05/12/2024 11:15 AM CHECK OUT CLERK Office Visit [facility] [address] [phone] Kev Moser MD [address] [place] [phone] 05/12/2024 11:30 AM CHECK OUT CLERK Clinical Support [facility] [address] [phone] Nurse, [facility] documented as of this encounter Visit Diagnoses Not on filedocumented in this encounter Additional Health Concerns Assessment Noted Time PHQ-9 Depression Total Score: 0 11/25/19 21 11:34 AM CDT documented as of this encounter Care Teams Black Top Roller Relationship Specialty Start Date End Date Scott Oneill MD PCP - General Internal Medicine 04/29/17 Tavo Mishra MD [address] [address] Internal Medicine 04/29/17 Gilmer Barnard MD [address] [address] Consulting Physician Internal Medicine 08/28/17 4 Kev Moser MD [address] [place] [phone] Consulting Physician Oncology 02/09/20 documented as of this encounter
--- OUTSIDE RECORDS SUMMARY | 2024-04-04 01:28 | XMS_ITS | Encounter Summary ---
Author Organization [facility] Care Team Providers Care Clinical Engineering Director Name Role Phone Scott Oneill MD Primary Care Provider [phone] Tavo Mishra MD Unavailable [phone] Gilmer Barnard MD Unavailable [phone] Kev Moser MD Unavailable [phone] Encounter Details Date Type Department Care Team (Latest Contact Info) Description 03/25/2023 Travel Social History Tobacco Use Types Packs/Day [...] on file Legal Sex Male 3:42 PM ARCHIVAL RECORDS CLERK Gender Identity Not on file Sexual Orientation Not on file documented as of this encounter Plan of Treatment Upcoming Encounters Date Type Department Care Team (Late st Contact Info) Description 04/07/2024 11:10 AM ARCHIVAL RECORDS CLERK Lab [facility] [address] [phone] Lab, [facility] 04/07/2024 11:15 AM ARCHIVAL RECORDS CLERK Clinical Support [facility] [address] [phone] Nurse, [facility] 05/12/2024 11:00 AM ARCHIVAL RECORDS CLERK Lab [facility] [address] [phone] Lab, [facility] 05/12/2024 11:15 AM ARCHIVAL RECORDS CLERK Office Visit [facility] [address] [phone] Kev Moser MD [address] [place] [phone] 05/12/2024 11:30 AM ARCHIVAL RECORDS CLERK Clinical Support [facility] [address] [phone] Nurse, [facility] documented as of this encounter Visit Diagnoses Not on filedocumented in this encounter Additional Health Concerns Assessment Noted Time PHQ-9 Depression Total Score: 0 11/25/19 21 11:34 AM CDT documented as of this encounter Care Teams Clinical Engineering Director Relationship Specialty Start Date End Date Scott Oneill MD PCP - General Internal Medicine 04/29/17 Tavo Mishra MD [address] [address] Internal Medicine 04/29/17 Gilmer Barnard MD [address] [address] Consulting Physician Internal Medicine 08/28/17 4 Kev Moser MD [address] [place] [phone] Consulting Physician Oncology 02/09/20 documented as of this encounter
--- OUTSIDE RECORDS SUMMARY | 2024-04-04 01:28 | XMS_ITS | Encounter Summary ---
Author Organization [facility] Address [address] [place] [address] Phone Care Team Providers Care Garment Liner Name Role Phone Scott Oneill MD Primary Care Provider Tavo Mishra MD Unavailable [phone] Gilmer Barnard MD Unavailable [phone] Kev Moser MD Unavailable [phone] Reason for Visit * Reason Comments Follow-up Encounter Details Date Type Department Care Team (Late st Contact Info) Description 10/22/2023 11:15 AM CDT Office Visit [facility] [address] [place] [address] Maricruz Munoz, NAVAL AIRCREWMAN TACTICAL HELICOPTER, TERRA COTTA ROOFER HELPER [address] [place] [phone] Other autoimmune hemolytic anemia (HCC) (Primary [...] on file Legal Sex Male 3:42 PM PHYSICIANS ASSISTANT Gender Identity Not on file Sexual Orientation Not on file documented as of this encounter Last Filed Vital Signs Vital Sign Reading Time Taken Comments Blood Pressure 110/78 10/22/2023 10:49 AM CDT Pulse 68 10/22/2023 10:49 AM CDT Temperature 36.3 ??C (97.3 ??F) 10/22/2023 1 0:49 AM CDT Respiratory Rate 18 10/22/2023 10:4 9 AM CDT Oxygen Saturation 95% 10/22/2023 10: 49 AM CDT Inhaled Oxygen Concentration - - Weight 104.4 kg (230 lb 1.6 oz) 024 10:49 AM CDT Height 165.1 cm (5' 5 ) 10/22/2023 10:4 9 AM CDT Body Mass Index 38.29 10/22/2023 10:49 AM CDT documented in this encounter Functional Status * Question Answer Date of Assessment Author Little interest or pleasure in doing things Not at all 10/22/2023 10:44 AM CDT Rhonda Manrique CMA Feeling down, depressed, or hopeless Not at all 10/22/2023 10:44 AM CDT Rhonda Manrique FUNDRAISING DIRECTOR * Over the past 2 weeks, how often have you been bothered by any of the following problems? Question Answer Date of Assessment Author Patient Health Questionnaire -2 Score 0 10/22/2023 10:44 AM CDT Rhonda Manrique FUNDRAISING DIRECTOR documented as of this encounter Progress Notes * Maricruz Munoz APRN, CNP - 10/22/2023 11:15 AM CDT Images from the original note were not included. Patient: Britton Nielsen Age: 68 y.o. : 1955 Encounter Dept: [facility] Encounter Date: 10/22/2023 Care Team: Current Providers PCP: Scott Oneill MD Care Team Provider: Tavo Mishra MD Care Team Provider: Gilmer Barnard MD Care Team Provider: Kev Moser MD Encounter Provider: Maricruz Munoz APRN, CNP Referring Provider: not found Nurse Practitioner: Maricruz Munoz APRN, CNP HISTORY OF PRESENT ILLNESS: Britton returns today for followup. He is doing relatively well since last visit. He denies any fevers, chills, night sweats, epistaxis, no hematochezia or any other bleeding episodes. He continues following with Marce Bernal and Dr. Weiss of [facility] with history of positive ANH and indeterminate ANCA antibodies, interstitial lung disease. The patient has recently restarted on CellCept. He is currently taking 500 mg b.i.d. He continues on his monthly B12 injection as well as oralferrous sulfate 325 mg daily. He has no new complaints at this time. DIAGNOSIS: 1. Glomerulonephritis, sclerosing (renal biopsy 04/01/17). [...] PAST TREATMENT: 1. Gastroduodenal artery embolization at [facility] 05/2017. 2. Cytoxan 100 mg [...] B12 injections. 4. Oral iron supplementation. 5. 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 PLAN: 1. Repeat labs today including CBC, CMP, and iron studies. Hemoglobin is significantly lower at 9.1. We will add on additional B12, folic acid, and iron studies. The patient has had anemia issues in the past while on CellCept requiring erythropoietin. 2. We will plan to repeat labs in four weeks and administer erythropoietin injection if necessary. 3. Continue following with Rheumatology and Pulmonology as scheduled. 4. Follow up in four weeks with repeat labs and evaluation. 5. Call in the interim with any questions, problems, or concerns. Dr. Moser was present in the office. TIME SPENT: REVIEW OF [...] per Care Everywhere. Kev Moser MD, FACP Maricruz Munoz DNP, WATER PROJECT ENGINEER-BC/dsp Vitals: Vitals: 10/22/23 1049 BP: 110/78 BP Location: Left Arm BP Position: Sitting BP Cuff Size: Regular Pulse: 68 Resp: 18 Temp: 97.3 ??F (36.3 ??C) TempSrc: Temporal SpO2: 95% Weight: 230 lb 1.6 oz (104.4 kg) Height: 5' 5 (1.651 m) Body surface area is 2.19 meters squared. Body mass index is 38.29 kg/m??. Pain Score: 5 Pain Loc: Leg Allergies: No Known Allergies [...] date: 05/23/1981 Quit date: 05/23/2011 Years since quittin.4 Smokeless tobacco: Never Vaping Use Vaping status: [...] Current Medications: Outpatient Encounter Medications as of 10/22/2023 Medication Sig Dispense Refill albuterol 108 (90 [...] taking: Reported on 10/22/2023) ergocalciferol (VITAMIN D) 06494 UNIT Capsule Take 50,000 Units by mouth once a week. furosemide (LASIX) 40 MG Tablet Take 40 mg by mouth daily. [DISCONTINUED] irbesartan (AVAPRO) 150 MG Tablet Take 150 mg by mouth daily. irbesartan (AVAPRO) 300 MG Tablet Take 300 mg by mouth daily. labetalol (NORMODYNE) 200 MG Tablet Take 200 mg by mouth 2 times daily. mycophenolate mofetil (CELLCEPT) 500 MG Tablet TAKE 3 TABLETS BY MOUTH DOPE HOUSE OPERATOR HELPER BEFORE BREAKFAST AND 2 TABS AFTER DINNER [...] facility-administered encounter medications on file as of 10/22/2023. Labs: Lab on 10/22/2023 Component Date Value Ref Range Status Glucose 10/22/2023 99 70 - 105 mg/dL Final Blood Urea Nitrogen 10/22/2023 36 (H) 7 - 25 mg/dL Final Creatinine 10/22/2023 2.5 (H) 0.7 - 1.3 mg/dL Final Sodium 10/22/2023 142 136 - 145 mEq/L Final Potassium 10/22/2023 5.0 3.5 - 5.1 mEq/L Final Chloride 10/22/2023 113 (H) 98 - 107 mEq/L Final Bicarbonate 10/22/2023 27 21 - 31 mEq/L Final Total Bilirubin 10/22/2023 0.8 0.3 - 1.0 mg/dL Final Alk. Phosphatase 10/22/2023 78 34 - 104 U/L Final Aspartate Aminotransferase 10/22/2023 8 (L) 13 - 39 U/L Final Alanine Aminotransferase 10/22/2023 9 7 - 52 U/L Final Total Protein 10/22/2023 5.6 (L) 6.4 - 8.9 g/dL Final Albumin 10/22/2023 3.8 3.5 - 5.7 g/dL Final Calcium 10/22/2023 6.6 (LL) 8.6 - 10.3 mg/dL Final Comment: Critical Result reported to Josephine Aleman on 10/22/2023 12:00 by Klaudia Henry. Results were read back to caller. Anion Gap 10/22/2023 7.0 7.0 - 15.0 mEq/L Final Globulin 10/22/2023 1.8 (L) 2.0 - 3.5 g/dL Final EGFR 10/22/2023 27 (L) >60 ml/min/1.73m2 Final Comment: This eGFR is calculated using 2020 CKD-EPI Creatinine equation without race modifier based on the NKF-ASN task force recommendations WBC 10/22/2023 5.5 4.0 - 10.0 10*3/uL Final HGB 10/22/2023 9.1 (L) 13.7 - 17.5 g/dL Final HCT 10/22/2023 29.3 (L) 40.1 - 51.0 % Final PLT 10/22/2023 108 (L) 163 - 369 10*3/uL Final MPV 10/22/2023 9.6 9.4 - 12.4 fL Final RBC 10/22/2023 3.17 (L) 4.63 - 6.08 10*6/uL Final MCV 10/22/2023 92 79 - 95 fL Final MCH 10/22/2023 28.7 25.6 - 32.2 pg Final MCHC 10/22/2023 31.1 (L) 32.2 - 36.5 g/dL Final RDW 10/22/2023 15.5 (H) 11.6 - 14.4 % Final Absolute Neutrophil Count 10/22/2023 3,953 cells/uL Final Absolute Seg Count 10/22/2023 3,953 1,440 - 6,600 cells/uL Final Absolute Lymph Count 10/22/2023 878 760 - 4,000 cells/uL Final Absolute Walton Count 10/22/2023 439 160 - 1,200 cells/uL Final Absolute Eos Count 10/22/2023 165 0 - 300 cells/uL Final Absolute Baso Count 10/22/2023 55 0 - 100 cells/uL Final Segmented Neutrophils 10/22/2023 72 (H) 36 - 66 % Final Lymphocytes 10/22/2023 16 (L) 19 - 40 % Final Monocytes 10/22/2023 8 4 - 12 % Final Eosinophils 10/22/2023 3 0 - 3 % Final Basophils 10/22/2023 1 0 - 1 % Final WBC Estimate 10/22/2023 Normal Final Platelet Estimate 10/22/2023 Low Final RBC Morphology 10/22/2023 Abnormal Final Anisocytosis 10/22/2023 1+ Final LDH 10/22/2023 184 140 - 271 U/L Final Cosigned by Kev Moser MD at 10/27/2023 9:39 AM CDT documented in this encounter Plan of Treatment Upcoming Encounters Date Type Department Care Team (Late st Contact Info) Description 04/07/2024 11:10 AM PHYSICIANS ASSISTANT Lab [facility] [address] [address] Lab, [place] 04/07/2024 11:15 AM PHYSICIANS ASSISTANT Clinical Support [facility] [address] [address] Nurse, [place] 05/12/2024 11:00 AM PHYSICIANS ASSISTANT Lab [facility] [address] [address] Lab, [place] 05/12/2024 11:15 AM PHYSICIANS ASSISTANT Office Visit [facility] [address] [place] [phone] Kev Moser MD [address] [place] [phone] 05/12/2024 11:30 AM PHYSICIANS ASSISTANT Clinical Support [facility] [address] [address] Nurse, Gricelda [facility] documented as of this encounter Procedures Procedure Name Priority Date/Time Associated Diagnosis Comments IRON W/ IRON BINDING CAPACITY [place] Routine 10/22/2023 10:36 AM CDT 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 Stage 3a chronic kidney disease (HCC) VITAMIN B12 Routine 10/22/2023 10:36 AM CDT 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 Stage 3a chronic kidney disease (HCC) RETICULOCYTE COUNT (RETIC) Routine 10/22/2023 10:36 AM CDT 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 Stage 3a chronic kidney disease (HCC) FOLIC ACID (FOLATE) Routine 10/22/2023 1 0:36 AM CDT 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 Stage 3a chronic kidney disease (HCC) FERRITIN Routine 10/22/2023 10:36 AM CDT 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 Stage 3a chronic kidney disease (HCC) documented in this encounter Results * VITAMIN B12 (11/19/2023 10:37 AM CDT) Vitamin B12 394 180 - 914 pg/mL [facility] Blood 11/19/2023 10:3 7 AM CDT Narrative [facility] 11/20/2023 3:13 PM CDT Release to patient->Immediate Maricruz Munoz APRN, KEYANA CHEMISTRY ORDERABLE S Final Result Performing Organization Address City/[facility]/ZIP Co de Phone Number [facility] [place] [address], [place] [phone] * LACTATE DEHYDROGENASE (LD) (11/19/2023 10:37 AM CDT) LDH 157 140 - 271 U/L [facility] Blood 11/19/2023 10:3 7 AM CDT Narrative [facility] - 11/19/2023 1:07 PM CDT Release to patient->Immediate Maricruz Munoz APRN, KEYANA CHEMISTRY ORDERABLE S Final Result Performing Organization Address [facility] Co de Phone Number [facility] [place] [address], [place] [phone] * (ABNORMAL) CMP (COMPREHENSIVE METABOLIC PANEL) (11/19/2023 10:37 AM CDT) Glucose 100 70 - 105 mg/dL [facility] Blood Urea Nitrogen 32(H) 7 - 25 mg/dL [facility] Creatinine 2.2(H) 0.7 - 1.3 mg/dL [facility] Sodium 140 136 - 145 mEq/L [facility] Potassium 5.0 3.5 - 5.1 mEq/L [facility] Chloride 109(H) 98 - 107 mEq/L [facility] Bicarbonate 20(L) 21 - 31 mEq/L [facility] Total Bilirubin 0.7 0.3 - 1.0 mg/dL [facility] Alk. Phosphatase 75 34 - 104 U/L [facility] Aspartate Aminotransferase 8(L) 13 - 39 U/L [facility] Alanine Aminotransferase 7 7 - 52 U/L [facility] Total Protein 6.1(L) 6.4 - 8.9 g/dL [facility] Albumin 4.0 3.5 - 5.7 g/dL [facility] Calcium 7.7(L) 8.6 - 10.3 mg/dL [facility] Anion Gap 16.0(H) 7.0 - 15.0 mEq/L [facility] Globulin 2.1 2.0 - 3.5 g/dL [facility] EGFR 31(L) >60 ml/min/1. 73m2 [facility] Comment: This eGFR is calculated using 2020 CKD-EPI Creatinine equation without race modifier based on the NKF-ASN task force recommendations Blood 11/19/2023 10:3 7 AM CDT Narrative [facility] - 11/19/2023 1:06 PM CDT Release to patient->Immediate IS THE PATIENT REQUIRED TO BE FASTING FOR 8 HOURS?->No us Maricruz Munoz NAVAL AIRCREWMAN TACTICAL HELICOPTER, TERRA COTTA ROOFER HELPER CHEMISTRY ORDERABLE S Final Result [facility] [place] [address], * (ABNORMAL) COMPLETE BLOOD COUNT (CBC) WITH DIFF (11/19/2023 10:37 AM CDT) WBC 5.3 4.0 - 10.0 10*3/uL [facility] HGB 9.7(L) 13.7 - 17.5 g/dL [facility] BARLEY STEEPER [facility] HCT 32.7(L) 40.1 - 51.0 % [facility] PLT 147(L) 163 - 369 10*3/uL [facility] MPV 9.9 9.4 - 12.4 fL [facility] RBC 3.43(L) 4.63 - 6.08 10*6/uL [facility] MCV 95 79 - 95 fL [facility] MCH 28.3 25.6 - 32.2 pg [facility] MCHC 29.7(L) 32.2 - 36.5 g/dL [facility] RDW 14.9(H) 11.6 - 14.4 % [facility] Absolute Neutrophil Count 4,253 cells/uL [facility] Absolute Seg Count 4,253 1,440 - 6,600 cells/uL [facility] Absolute Lymph Count 578(L) 760 - 4,000 cells/uL [facility] Absolute Walton Count 420 160 - 1,200 cells/uL [facility] Segmented Neutrophils 81(H) 36 - 66 % [facility] Lymphocytes 11(L) 19 - 40 % [facility] Monocytes 8 4 - 12 % [facility] WBC Estimate Normal [facility] Platelet Estimate Low [facility] RBC Morphology Abnormal [facility] Anisocytosis 1+ [facility] Blood 11/19/2023 10:3 7 AM CDT Narrative [facility] - 11/19/2023 1:58 PM CDT Release to patient->Immediate us Maricruz Munoz APRN, KEYANA HEMATOLOGY ORDERABL ES Final Result [facility] [address] [place] [address], * (ABNORMAL) RETICULOCYTE COUNT (RETIC) (10/22/2023 10:36 AM CDT) Reticulocyte count 2.82(H) 0.51 - 1.81 % [facility] RET-He 28.10(L) 28.20 - 36.60 pg [facility] Comment: RET-He is a direct assessment of incorporation of iron into erythrocyte hemoglobin. It provides an indirect measure of the iron available for new erythropoiesis over past 2-4 days. Blood 10/22/2023 10:3 6 AM CDT Narrative [facility] - 10/22/2023 11:57 AM CDT Release to patient->Immediate us Maricruz Munoz APRN, CNP HEMATOLOGY ORDERABL ES Final Result [facility] [address] [place] [address], [place] [phone] * (ABNORMAL) IRON W/ IRON BINDING CAPACITY [place] (10/22/2023 10:36 AM CDT) IRON 71 50 - 212 ug/dL [facility] UIBC 147(L) 155 - 355 ug/dL [facility] TIBC 218(L) 261 - 478 ug/dl [facility] % Saturation 33 20 - 50 % [facility] 10/22/2023 10:3 6 AM CDT Narrative [facility] - 10/22/2023 12:11 PM CDT Release to patient->Immediate us Maricruz Munoz APRN, CNP LAB SEND OUTS Fin al Result [facility] [address] [place] [address], [place] [phone] * (ABNORMAL) FERRITIN (10/22/2023 10:36 AM CDT) Ferritin 427(H) 24 - 336 ng/mL [facility] Blood 10/22/2023 10:3 6 AM CDT [facility] - 10/23/2023 3:35 PM CDT Release to patient->Immediate us Maricruz Munoz APRN, CNP CHEMISTRY ORDERABLE S Final Result [facility] [address] [place] [address], [place] [phone] * FOLIC ACID (FOLATE) (10/22/2023 10:36 AM CDT) Folate 9.92 >=5.90 ng/mL [facility] Blood 10/22/2023 10:3 6 AM CDT Narrative [facility] - 10/23/2023 3:35 PM CDT Release to patient->Immediate IS THE PATIENT REQUIRED TO BE FASTING FOR 12 HOURS?->No Maricruz Munoz APRN, TERRA COTTA ROOFER HELPER CHEMISTRY ORDERABLE S Final Result [facility] [address] [place] [address], [place] [phone] * VITAMIN B12 (10/22/2023 10:36 AM CDT) Vitamin B12 378 180 - 914 pg/mL [facility] Blood 10/22/2023 10:[address] [facility] - 10/23/2023 3:35 PM CDT Release to patient->Immediate Maricruz Munoz APRN, TERRA COTTA ROOFER HELPER CHEMISTRY ORDERABLE S Final Result Performing Organization Address City/[facility]/ZIP Co de Phone Number [facility] [address] [place] [address], documented in this encounter Visit Diagnoses Diagnosis Other autoimmune hemolytic anemia (HCC)- Primary Vitamin B 12 deficiency Other B-complex deficiencies Iron deficiency anemia due to sideropenic dysphagia Stage 3a chronic kidney disease (HCC) 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 deficiency Other B-complex deficiencies Iron deficiency anemia due to sideropenic dysphagia Stage 3a chronic kidney disease (HCC) documented in this encounter Additional Health Concerns Assessment Noted Time PHQ-9 Depression Total Score: 0 11/25/19 21 11:34 AM CDT documented as of this encounter Care Teams Garment Liner Relationship Specialty Start Date End Date Scott Oneill MD PCP - General Internal Medicine 04/29/17 Tavo Mishra MD [address] [place] [address] [phone] Internal Medicine 04/29/17 Gilmer Barnard MD [address] [facility] [address] [place] [address] [phone] Consulting Physician Internal Medicine 08/28/17 4 Kev Moser MD [address] [place] [phone] Consulting Physician Oncology 02/09/20 documented as of this encounter
--- OUTSIDE RECORDS SUMMARY | 2024-04-04 01:28 | XMS_ITS | Encounter Summary ---
Author Organization [employer] Care Team Providers Care Hotel Reservationist Name Role Phone Scott Oneill MD Primary Care Provider [phone] Tavo Mishra MD Unavailable [phone] Gilmer Barnard MD Unavailable [phone] Kev Moser MD Unavailable [phone] Encounter Details Date Type Department Care Team (Latest Contact Info) Description 03/10/2023 Travel Social History Tobacco Use Types Packs/Day [...] on file Legal Sex Male 3:42 PM ESCALATOR OPERATOR Gender Identity Not on file Sexual Orientation Not on file documented as of this encounter Plan of Treatment Upcoming Encounters Date Type Department Care Team (Late st Contact Info) Description 04/07/2024 11:10 AM ESCALATOR OPERATOR Lab [facility] [address] [phone] Lab, [facility] 04/07/2024 11:15 AM ESCALATOR OPERATOR Clinical Support [facility] [address] [phone] Nurse, [facility] 05/12/2024 11:00 AM ESCALATOR OPERATOR Lab [facility] [address] [phone] Lab, [facility] 05/12/2024 11:15 AM ESCALATOR OPERATOR Office Visit [facility] [address] [phone] Kev Moser MD [address] [place] [phone] 05/12/2024 11:30 AM ESCALATOR OPERATOR Clinical Support [facility] [address] [phone] Nurse, [facility] documented as of this encounter Visit Diagnoses Not on filedocumented in this encounter Additional Health Concerns Assessment Noted Time PHQ-9 Depression Total Score: 0 11/25/19 21 11:34 AM CDT documented as of this encounter Care Teams Hotel Reservationist Relationship Specialty Start Date End Date Scott Oneill MD PCP - General Internal Medicine 04/29/17 Tavo Mishra MD [address] [address] Internal Medicine 04/29/17 Gilmer Barnard MD [address] [address] Consulting Physician Internal Medicine 08/28/17 4 Kev Moser MD [address] [place] [phone] Consulting Physician Oncology 02/09/20 documented as of this encounter
--- OUTSIDE RECORDS SUMMARY | 2024-04-04 01:28 | XMS_ITS | Encounter Summary ---
Author Organization [facility] Address [address] [place] [address] Phone Care Team Providers Care Biology Teacher Name Role Phone Scott Oneill MD Primary Care Provider Tavo Mishra MD Unavailable [phone] Gilmer Barnard MD Unavailable [phone] Kev Moser MD Unavailable [phone] Encounter Details Date Type Department Care Team (Late st Contact Info) Description 04/02/2023 11:00 AM BUSINESS CONTINUITY CONSULTANT Lab [facility] [address] [phone] Lab, [facility] Iron deficiency anemia due to sideropenic dysphagia; Anemia, unspecified type; Vitamin B 12 deficiency; Stage 3a chronic kidney disease (HCC) Social [...] on file Legal Sex Male 3:42 PM BUSINESS CONTINUITY CONSULTANT Gender Identity Not on file Sexual [...] Oquendo CMA documented as of this encounter Plan of Treatment Upcoming Encounters Date Type Department Care Team (Late st Contact Info) Description 04/07/2024 11:10 AM BUSINESS CONTINUITY CONSULTANT Lab [facility] [address] [phone] Lab, [facility] 04/07/2024 11:15 AM BUSINESS CONTINUITY CONSULTANT Clinical Support [facility] [address] [phone] Nurse, [facility] 05/12/2024 11:00 AM BUSINESS CONTINUITY CONSULTANT Lab [facility] OF [address] [phone] Lab, [facility] 05/12/2024 11:15 AM BUSINESS CONTINUITY CONSULTANT Office Visit [facility] [address] [phone] Kev Moser MD [address] [place] [phone] 05/12/2024 11:30 AM BUSINESS CONTINUITY CONSULTANT Clinical Support [facility] [address] [phone] Nurse, [facility] documented as of this encounter Procedures Procedure Name Priority Date/Time Associated Diagnosis Comments IRON W/ IRON BINDING CAPACITY [place] Routine 04/02/2023 10:56 AM BUSINESS CONTINUITY CONSULTANT Iron deficiency anemia due to sideropenic dysphagia Anemia, unspecified type Vitamin B 12 deficiency Stage 3a chronic kidney disease (HCC) VITAMIN B12 Routine 04/02/2023 10:56 AM BUSINESS CONTINUITY CONSULTANT Iron deficiency anemia due to sideropenic dysphagia Anemia, unspecified type Vitamin B 12 deficiency Stage 3a chronic kidney disease (HCC) RETICULOCYTE COUNT (RETIC) Routine 04/02/2023 10:56 AM BUSINESS CONTINUITY CONSULTANT Iron deficiency anemia due to sideropenic dysphagia Anemia, unspecified type Vitamin B 12 deficiency Stage 3a chronic kidney disease (HCC) FOLIC ACID (FOLATE) Routine 04/02/2023 1 0:56 AM BUSINESS CONTINUITY CONSULTANT Iron deficiency anemia due to sideropenic dysphagia Anemia, unspecified type Vitamin B 12 deficiency Stage 3a chronic kidney disease (HCC) FERRITIN Routine 04/02/2023 10:56 AM BUSINESS CONTINUITY CONSULTANT Iron deficiency anemia due to sideropenic dysphagia Anemia, unspecified type Vitamin B 12 deficiency Stage 3a chronic kidney disease (HCC) CMP (COMPREHENSIVE METABOLIC PANEL) Routine 04/02/2023 10:56 AM BUSINESS CONTINUITY CONSULTANT Iron deficiency anemia due to sideropenic dysphagia Anemia, unspecified type Vitamin B 12 deficiency Stage 3a chronic kidney disease (HCC) COMPLETE BLOOD COUNT (CBC) WITH DIFF Routine 04/02/2023 10:56 AM BUSINESS CONTINUITY CONSULTANT Iron deficiency anemia due to sideropenic dysphagia Anemia, unspecified type Vitamin B 12 deficiency Stage 3a chronic kidney disease (HCC) documented in this encounter Results * (ABNORMAL) COMPLETE BLOOD COUNT (CBC) WITH DIFF (04/02/2023 10:56 AM BUSINESS CONTINUITY CONSULTANT) WBC 5.8 4.0 - 10.0 10*3/uL [facility] HGB 11.1(L) 13.7 - 17.5 g/dL [facility] HCT 35.3(L) 40.1 - 51.0 % [facility] PLT 169 163 - 369 10*3/uL [facility] MPV 9.5 9.4 - 12.4 fL [facility] RBC 3.76(L) 4.63 - 6.08 10*6/uL [facility] MCV 94 79 - 95 fL [facility] [employer] [facility] MCH 29.5 25.6 - 32.2 pg [facility] [employer] [facility] MCHC 31.4(L) 32.2 - 36.5 g/dL [facility] RDW 15.6(H) 11.6 - 14.4 % [facility] Absolute Neutrophil Count 4,624 cells/uL [facility] Absolute Seg Count 4,624 1,440 - 6,600 cells/uL [facility] Absolute Lymph Count 694(L) 760 - 4,000 cells/uL [facility] Absolute [place] Count 231 160 - 1,200 cells/uL [facility] Absolute Eos Count 231 0 - 300 cells/uL [facility] Segmented Neutrophils 80(H) 36 - 66 % [facility] Lymphocytes 12(L) 19 - 40 % [facility] Monocytes 4 4 - 12 % [facility] Eosinophils 4(H) 0 - 3 % [facility] WBC Estimate Normal [facility] Platelet Estimate Normal [facility] RBC Morphology Abnormal [facility] Anisocytosis 1+ [facility] Blood 04/02/2023 10:5 6 AM BUSINESS CONTINUITY CONSULTANT Narrative [facility] - 04/02/2023 2:43 PM BUSINESS CONTINUITY CONSULTANT Release to patient->Immediate Cee Rios EVIDENCE SPECIALIST, HORSES OR MULES TEAMSTER HEMATOLOGY ORDERA BLES Final Result [facility] [facility] [place] [address], * (ABNORMAL) CMP (COMPREHENSIVE METABOLIC PANEL) (04/02/2023 10:56 AM BUSINESS CONTINUITY CONSULTANT) Glucose 121(H) 70 - 105 mg/dL [facility] Blood Urea Nitrogen 32(H) 7 - 25 mg/dL [facility] Creatinine 2.4(H) 0.7 - 1.3 mg/dL [facility] Sodium 139 136 - 145 mEq/L [facility] Potassium 4.7 3.5 - 5.1 mEq/L [facility] Chloride 105 98 - 107 mEq/L [facility] Bicarbonate 24 21 - 31 mEq/L [facility] Total Bilirubin 0.7 0.3 - 1.0 mg/dL [facility] Alk. Phosphatase 83 34 - 104 U/L [facility] Aspartate Aminotransferase 9(L) 13 - 39 U/L [facility] Alanine Aminotransferase 11 7 - 52 U/L [facility] Total Protein 6.8 6.4 - 8.9 g/dL [facility] Albumin 3.9 3.5 - 5.7 g/dL [facility] Calcium 8.6 8.6 - 10.3 mg/dL [facility] Anion Gap 14.7 7.0 - 15.0 mEq/L [facility] Globulin 2.9 2.0 - 3.5 g/dL [facility] EGFR 28(L) >60 ml/min/1. 73m2 [facility] Comment: This eGFR is calculated using 2020 CKD-EPI Creatinine equation without race modifier based on the NKF-ASN task force recommendations Blood 04/02/2023 10:5 6 AM BUSINESS CONTINUITY CONSULTANT [employer] [facility] - 04/02/2023 12:45 PM BUSINESS CONTINUITY CONSULTANT Release to patient->Immediate IS THE PATIENT REQUIRED TO BE FASTING FOR 8 HOURS?->No Cee Rios APRN, HORSES OR MULES TEAMSTER CHEMISTRY ORDERAB LES Final Result [facility] [employer] [facility] [place] [address], * VITAMIN B12 (04/02/2023 10:56 AM BUSINESS CONTINUITY CONSULTANT) Vitamin B12 492 180 - 914 pg/mL [facility] Blood 04/02/2023 10:5 6 AM BUSINESS CONTINUITY CONSULTANT [employer] [facility] [employer] [facility] - 04/03/2023 2:52 PM BUSINESS CONTINUITY CONSULTANT Release to patient->Immediate Cee D Gabriel EVIDENCE SPECIALIST, HORSES OR MULES TEAMSTER CHEMISTRY ORDERAB LES Final Result Performing Organization Address [facility] Co de Phone Number [facility] [employer] [facility] [address] [place] [address] [place] [address], * FOLIC ACID (FOLATE) (04/02/2023 10:56 AM BUSINESS CONTINUITY CONSULTANT) Folate 9.08 >=5.90 ng/mL [facility] Blood 04/02/2023 10:5 6 AM BUSINESS CONTINUITY CONSULTANT [facility] - 04/03/2023 2:52 PM BUSINESS CONTINUITY CONSULTANT Release to patient->Immediate IS THE PATIENT REQUIRED TO BE FASTING FOR 12 HOURS?->No Cee Rios APRN, HORSES OR MULES TEAMSTER CHEMISTRY ORDERAB LES Final Result Performing Organization Address [facility] Co de Phone Number [facility] [employer] [facility] [address] [place] [address] [place] [address], [place] [phone] * (ABNORMAL) FERRITIN (04/02/2023 10:56 AM BUSINESS CONTINUITY CONSULTANT) Ferritin 466(H) 24 - 336 ng/mL [facility] Blood 04/02/2023 10:5 6 AM BUSINESS CONTINUITY CONSULTANT [facility] - 04/03/2023 2:52 PM BUSINESS CONTINUITY CONSULTANT Release to patient->Immediate Cee Rios EVIDENCE SPECIALIST, HORSES OR MULES TEAMSTER CHEMISTRY ORDERAB LES Final Result Performing Organization Address [facility]/ZIP Co de Phone Number [facility] [address] [place] [address] [place] [address], * (ABNORMAL) IRON W/ IRON BINDING CAPACITY [place] (04/02/2023 10:56 AM BUSINESS CONTINUITY CONSULTANT) IRON 41(L) 50 - 212 ug/dL [facility] UIBC 197 155 - 355 ug/dL [facility] TIBC 238(L) 261 - 478 ug/dl [facility] % Saturation 17(L) 20 - 50 % [facility] 04/02/2023 10:5 6 AM BUSINESS CONTINUITY CONSULTANT Narrative [facility] - 04/02/2023 12:45 PM BUSINESS CONTINUITY CONSULTANT Release to patient->Immediate Cee Rios APRN, CNP LAB SEND OUTS F inal Result Performing Organization Address [facility] Co de Phone Number [facility] [address] [place] [address], * (ABNORMAL) RETICULOCYTE COUNT (RETIC) (04/02/2023 10:56 AM BUSINESS CONTINUITY CONSULTANT) Reticulocyte count 2.50(H) 0.51 - 1.81 % [facility] RET-He 29.60 28.20 - 36.60 pg [facility] Comment: RET-He is a direct assessment of incorporation of iron into erythrocyte hemoglobin. It provides an indirect measure of the iron available for new erythropoiesis over past 2-4 days. Blood 04/02/2023 10:5 6 AM BUSINESS CONTINUITY CONSULTANT [employer] [facility] - 04/02/2023 11:32 AM BUSINESS CONTINUITY CONSULTANT Release to patient->Immediate Cee Rios APRN, CNP HEMATOLOGY ORDERA BLES Final Result Performing Organization Address [facility] Co de Phone Number [facility] [address] [place] [address], documented in this encounter Visit Diagnoses Diagnosis Iron deficiency anemia due to sideropenic dysphagia Anemia, unspecified type Vitamin B 12 deficiency Other B-complex deficiencies Stage 3a chronic kidney disease (HCC) documented in this encounter Additional Health Concerns Assessment Noted Time PHQ-9 Depression Total Score: 0 11/25/19 21 11:34 AM CDT documented as of this encounter Care Teams Biology Teacher Relationship Specialty Start Date End Date Scott Oneill MD PCP - General Internal Medicine 04/29/17 Tavo Mishra MD [address] [place] [address] [phone] Internal Medicine 04/29/17 Gilmer Barnard MD [address] [place] [address] [phone] Consulting Physician Internal Medicine 08/28/17 4 Kev Moser MD [address] [place] [phone] Consulting Physician Oncology 02/09/20 documented as of this encounter
--- OUTSIDE RECORDS SUMMARY | 2024-04-04 01:28 | XMS_ITS | Encounter Summary ---
Author Organization [facility] Address [address] [place] [address] Phone Care Team Providers Care Scanning Tech Name Role Phone Scott Oneill MD Primary Care Provider Tavo Mishra MD Unavailable [phone] Gilmer Barnard MD Unavailable [phone] Kev Moser MD Unavailable [phone] Reason for Visit * Reason Comments Therapeutic Injection B12 INJECTION Encounter Details Date Type Department Care Team (Latest Contact Info) Description 08/27/2023 11:20 AM CDT Clinical Support [facility] [address] [phone] Nurse, [facility] Vitamin B 12 deficiency (Primary Dx); Other [...] file Legal Sex Male 3:42 PM DIRECTOR OF COMPENSATION Gender Identity Not on file Sexual Orientation Not on file documented as of this encounter Functional Status * Question Answer Date of Assessment Author Little interest or pleasure in doing things Not at all 08/27/2023 10:40 AM CDT Viji Tobias LPN Feeling down, [...] Progress Notes * Fritz Pena RN - 08/27/2023 11:20 AM CDT Patient in for B12 injection. Tolerated well to left arm. Band-aid applied. No change in patient performance status since arrival to clinic. Patient discharged ambulatory. * Fritz Pena RN - 08/27/2023 11:20 AM CDT Dispensed: Eliquis 5 mg tablets 4 boxes given (56 tabs) LOT#: [id number] EXP: 11/2024 documented in this encounter Miscellaneous Notes * Addendum Note - Fritz Pena RN - 08/27/2023 11:20 AM CDTAddended by: FRITZ PENA on: 08/27/2023 11:38 AM Modules accepted: Orders documented in this encounter Plan of Treatment Upcoming Encounters Date Type Department Care Team (Late st Contact Info) Description 04/07/2024 11:10 AM DIRECTOR OF COMPENSATION Lab [facility] [address] [phone] Lab, [facility] 04/07/2024 11:15 AM DIRECTOR OF COMPENSATION Clinical Support [facility] [address] [phone] Nurse, [facility] 05/12/2024 11:00 AM DIRECTOR OF COMPENSATION Lab [facility] [address] [phone] Lab, [facility] 05/12/2024 11:15 AM DIRECTOR OF COMPENSATION Office Visit [facility] [address] [phone] Kev Moser MD [address] [place] [phone] 05/12/2024 11:30 AM DIRECTOR OF COMPENSATION Clinical Support [facility] [address] [phone] Nurse, [facility] documented as of this encounter Visit Diagnoses Diagnosis Vitamin B 12 deficiency- Primary Other B-complex deficiencies Other autoimmune hemolytic anemia (HCC) documented in this encounter Additional Health Concerns Assessment Noted Time PHQ-9 Depression Total Score: 0 11/25/19 21 11:34 AM CDT documented as of this encounter Care Teams Scanning Tech Relationship Specialty Start Date End Date Scott Oneill MD PCP - General Internal Medicine 04/29/17 Tavo Mishra MD [address] [address] Internal Medicine 04/29/17 Gilmer Barnard MD [address] [address] Consulting Physician Internal Medicine 08/28/17 4 Kev Moser MD [address] [place] [phone] Consulting Physician Oncology 02/09/20 documented as of this encounter
--- OUTSIDE RECORDS SUMMARY | 2024-04-04 01:28 | XMS_ITS | Encounter Summary ---
Author Organization [facility] Address [address] [place] [address] Phone Care Team Providers Care Wall To Wall Carpet Installer Name Role Phone Scott Oneill MD Primary Care Provider Tavo Mishra MD Unavailable [phone] Gilmer Barnard MD Unavailable [phone] Kev Moser MD Unavailable [phone] Encounter Details Date Type Department Care Team (Late st Contact Info) Description 07/02/2023 11:00 AM CDT Lab [facility] [address] [phone] Lab, [facility] Other autoimmune hemolytic anemia (HCC); Vitamin B [...] on file Legal Sex Male 3:42 PM METAL LEAF LAYER Gender Identity Not on file Sexual Orientation [...] Health Questionnaire-2 Score 0 07/02/2023 11:14 AM Christy Ace CMA documented as of this encounter Plan of Treatment Upcoming Encounters Date Type Department Care Team (Late st Contact Info) Description 04/07/2024 11:10 AM METAL LEAF LAYER Lab [facility] [address] [phone] Lab, [facility] 04/07/2024 11:15 AM METAL LEAF LAYER Clinical Support [facility] [address] [phone] Nurse, [facility] 05/12/2024 11:00 AM METAL LEAF LAYER Lab [facility] [address] [phone] Lab, [facility] 05/12/2024 11:15 AM METAL LEAF LAYER Office Visit [facility] [address] [phone] Kev Moser MD [address] [place] [phone] 05/12/2024 11:30 AM METAL LEAF LAYER Clinical Support [facility] [address] [phone] Nurse, [facility] documented as of this encounter Procedures Procedure Name Priority Date/Time Associated Diagnosis Comments IRON W/ IRON BINDING CAPACITY OH Routine 07/02/2023 11:01 AM CDT 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 VITAMIN B12 Routine 07/02/2023 11:01 AM CDT 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 RETICULOCYTE COUNT (RETIC) Routine 07/02/2023 11:01 AM CDT 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 FOLIC ACID (FOLATE) Routine 07/02/2023 1 1:01 AM CDT 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 FERRITIN Routine 07/02/2023 11:01 AM CDT 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 CMP (COMPREHENSIVE METABOLIC PANEL) Routine 07/02/2023 11:01 AM CDT 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 COMPLETE BLOOD COUNT (CBC) WITH DIFF Routine 07/02/2023 11:01 AM CDT 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 documented in this encounter Results * (ABNORMAL) RETICULOCYTE COUNT (RETIC) (07/02/2023 11:01 AM CDT) Reticulocyte count 2.23(H) 0.51 - 1.81 % [facility] RET-He 31.00 28.20 - 36.60 pg [facility] Comment: RET-He is a direct assessment of incorporation of iron into erythrocyte hemoglobin. It provides an indirect measure of the iron available for new erythropoiesis over past 2-4 days. Blood 07/02/2023 11:0 1 AM CDT Narrative [facility] - 07/02/2023 11:22 AM CDT Release to patient->Immediate us Sindi Qiu BUILDING CONSTRUCTION SUPERVISOR, DRYWALL METAL STUD WORKER HEMATOLOGY ORDERABLES Final Result [facility] [place] [address], * (ABNORMAL) IRON W/ IRON BINDING CAPACITY [place] (07/02/2023 11:01 AM CDT) IRON 58 50 - 212 ug/dL [facility] UIBC 175 155 - 355 ug/dL [facility] TIBC 233(L) 261 - 478 ug/dl [facility] % Saturation 25 20 - 50 % [facility] 07/02/2023 11:0 1 AM CDT [facility] - 07/02/2023 12:13 PM CDT Release to patient->Immediate us Sindi Qiu APRN, DRYWALL METAL STUD WORKER LAB SEND OUTS Final Result [facility] [address] [place] [address], * (ABNORMAL) FERRITIN (07/02/2023 11:01 AM CDT) Ferritin 431(H) 24 - 336 ng/mL [facility] Blood 07/02/2023 11:0 1 AM CDT [facility] - 07/03/2023 2:26 PM CDT Release to patient->Immediate Sindi Qiu APRN, DRYWALL METAL STUD WORKER CHEMISTRY ORDERABLES Final Result [facility] [address] [place] [address], [place] [phone] * FOLIC ACID (FOLATE) (07/02/2023 11:01 AM CDT) Folate 9.48 >=5.90 ng/mL [facility] Blood 07/02/2023 11:0 1 AM CDT [facility] - 07/03/2023 2:26 PM CDT Release to patient->Immediate IS THE PATIENT REQUIRED TO BE FASTING FOR 12 HOURS?->No Sindi Qiu APRN, DRYWALL METAL STUD WORKER CHEMISTRY ORDERABLES Final Result Performing Organization Address City/[facility]/ZIP Co de Phone Number [facility] [place] [address], [place] [phone] * VITAMIN B12 (07/02/2023 11:01 AM CDT) Pathologist [facility] Vitamin B12 379 180 - 914 pg/mL [facility] Blood 07/02/2023 11:0 1 AM CDT Narrative [facility] - 07/03/2023 2:26 PM CDT Release to patient->Immediate Sindi Qiu APRN, DRYWALL METAL STUD WORKER CHEMISTRY ORDERABLES Final Result Performing Organization Address [facility] Co de Phone Number [facility] [place] [address], [place] [phone] * (ABNORMAL) COMPLETE BLOOD COUNT (CBC) WITH DIFF (07/02/2023 11:01 AM CDT) Pathologist [facility] WBC 5.3 4.0 - 10.0 10*3/uL [facility] HGB 11.1(L) 13.7 - 17.5 g/dL [facility] HCT 34.5(L) 40.1 - 51.0 % [facility] PLT 131(L) 163 - 369 10*3/uL [facility] MPV 10.0 9.4 - 12.4 fL [facility] RBC 3.69(L) 4.63 - 6.08 10*6/uL [facility] MCV 94 79 - 95 fL [facility] MCH 30.1 25.6 - 32.2 pg [facility] MCHC 32.2 32.2 - 36.5 g/dL [facility] RDW 15.1(H) 11.6 - 14.4 % [facility] Absolute Neutrophil Count 3,915 cells/uL [facility] Absolute Seg Count 3,862 1,440 - 6,600 cells/uL [facility] Absolute Band Count 53 0 - 800 cells/uL [facility] Absolute Lymph Count 741(L) 760 - 4,000 cells/uL [facility] Absolute [place] Count 476 160 - 1,200 cells/uL [facility] Absolute Eos Count 159 0 - 300 cells/uL [facility] Segmented Neutrophils 73(H) 36 - 66 % [facility] Band Neutrophils 1 0 - 8 % [facility] Lymphocytes 14(L) 19 - 40 % [facility] Monocytes 9 4 - 12 % [facility] Eosinophils 3 0 - 3 % [facility] WBC Estimate Normal [facility] Platelet Estimate Low [facility] RBC Morphology Abnormal CANCE R [facility]ARM [facility] Anisocytosis 1+ [facility] Blood 07/02/2023 11:0 1 AM CDT Narrative [facility] - 07/02/2023 2:48 PM CDT Release to patient->Immediate Sindi Qiu BUILDING CONSTRUCTION SUPERVISOR, DRYWALL METAL STUD WORKER HEMATOLOGY ORDERABLES Final Result [facility] [place] [address], * (ABNORMAL) CMP (COMPREHENSIVE METABOLIC PANEL) (07/02/2023 11:01 AM CDT) Glucose 110(H) 70 - 105 mg/dL [facility] Blood Urea Nitrogen 34(H) 7 - 25 mg/dL [facility] Creatinine 2.2(H) 0.7 - 1.3 mg/dL [facility] Sodium 139 136 - 145 mEq/L [facility] Potassium 4.5 3.5 - 5.1 mEq/L [facility] Chloride 107 98 - 107 mEq/L [facility] Bicarbonate 23 21 - 31 mEq/L [facility] Total Bilirubin 0.8 0.3 - 1.0 mg/dL [facility] Alk. Phosphatase 75 34 - 104 U/L [facility] Aspartate Aminotransferase 11(L) 13 - 39 U/L [facility] Alanine Aminotransferase 11 7 - 52 U/L [facility] Total Protein 6.4 6.4 - 8.9 g/dL [facility] Albumin 3.9 3.5 - 5.7 g/dL [facility] Calcium 8.0(L) 8.6 - 10.3 mg/dL [facility] Anion Gap 13.5 7.0 - 15.0 mEq/L [facility] Globulin 2.5 2.0 - 3.5 g/dL [facility] EGFR 32(L) >60 ml/min/1. 73m2 [facility] Comment: This eGFR is calculated using 2020 CKD-EPI Creatinine equation without race modifier based on the NKF-ASN task force recommendations Blood 07/02/2023 11:0 1 AM CDT Narrative [facility] - 07/02/2023 12:13 PM CDT Release to patient->Immediate IS THE PATIENT REQUIRED TO BE FASTING FOR 8 HOURS?->No Sindi Qiu APRN, DRYWALL METAL STUD WORKER CHEMISTRY ORDERABLES Final Result [facility] [place] [address], documented in this encounter Visit Diagnoses Diagnosis 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 deficiency Other B-complex deficiencies Iron deficiency anemia due to sideropenic dysphagia documented in this encounter Additional Health Concerns Assessment Noted Time PHQ-9 Depression Total Score: 0 11/25/19 21 11:34 AM CDT documented as of this encounter Care Teams Wall To Wall Carpet Installer Relationship Specialty Start Date End Date Scott Oneill MD PCP - General Internal Medicine 04/29/17 Tavo Mishra MD [address] [place] [address] [phone] Internal Medicine 04/29/17 Gilmer Barnard MD [address] [place] [address] [phone] Consulting Physician Internal Medicine 08/28/17 4 Kev Moser MD [address] [place] [phone] Consulting Physician Oncology 02/09/20 documented as of this encounter
--- OUTSIDE RECORDS SUMMARY | 2024-04-04 01:28 | XMS_ITS | Encounter Summary ---
Author Organization [facility] Address [address] [place] [address] Phone Care Team Providers Care Greenhouse Florist Name Role Phone Scott Oneill MD Primary Care Provider [phone] Tavo Mishra MD Unavailable [phone] Gilmer Barnard MD Unavailable [phone] Kev Moser MD Unavailable [phone] Reason for Visit * Reason Comments Other Eliquis sample dispe nse Encounter Details Date Type Department Care Team (Latest Contact Info) Description 03/25/2023 1:15 PM MATH INSTRUCTOR Clinical Support [facility] [address] [phone] Nurse, [facility] Other autoimmune hemolytic anemia (HCC) Social History [...] on file Legal Sex Male 3:42 PM MATH INSTRUCTOR Gender Identity Not on file Sexual Orientation Not on file documented as of this encounter Progress Notes * Zahida Montes RN - 03/25/2023 1:15 PM CST Dispensed: Eliquis 5 mg tablets 4 boxes given (56 tabs) LOT#:??[id number] EXP:??10/22 INSTRUCTOR documented in this encounter Plan of Treatment Upcoming Encounters Date Type Department Care Team (Late st Contact Info) Description 04/07/2024 11:10 AM MATH INSTRUCTOR Lab [facility] [address] [phone] Lab, [facility] 04/07/2024 11:15 AM MATH INSTRUCTOR Clinical Support [facility] [address] [phone] Nurse, [facility] 05/12/2024 11:00 AM MATH INSTRUCTOR Lab [facility] [address] [phone] Lab, [facility] 05/12/2024 11:15 AM MATH INSTRUCTOR Office Visit [facility] [address] [phone] Kev Moser MD [address] [place] [phone] 05/12/2024 11:30 AM MATH INSTRUCTOR Clinical Support [facility] [address] [phone] Nurse, [facility] documented as of this encounter Visit Diagnoses Diagnosis Other autoimmune hemolytic anemia (HCC) documented in this encounter Additional Health Concerns Assessment Noted Time PHQ-9 Depression Total Score: 0 11/25/19 21 11:34 AM CDT documented as of this encounter Care Teams Greenhouse Florist Relationship Specialty Start Date End Date Scott Oneill MD PCP - General Internal Medicine 04/29/17 Tavo Mishra MD [address] [address] Internal Medicine 04/29/17 Gilmer Barnard MD [address] [address] Consulting Physician Internal Medicine 08/28/17 4 Kev Moser MD [address] [place] [phone] Consulting Physician Oncology 02/09/20 documented as of this encounter
--- OUTSIDE RECORDS SUMMARY | 2024-04-04 01:28 | XMS_ITS | Encounter Summary ---
Author Organization [facility] Address [address] [place] [address] Phone Care Team Providers Care Lean Process Deployment Consultant Name Role Phone Scott Oneill MD Primary Care Provider [phone] Tavo Mishra MD Unavailable [phone] Gilmer Barnard MD Unavailable [phone] Kev Moser MD Unavailable [phone] Reason for Visit * Reason Comments Immunization/Injection Vitamin B12 * Episode Based Medications (Routine) - Authorized Specialty Diagnoses / Procedures Referred By Contamy t Referred To Contact Diagnoses Vitamin B 12 deficiency Procedures VITAMIN B12 INJ RANGE DOSE 1-1,000 MCG Kev Moser MD [address] [place] [phone] Phone: tel: fax: [facility] [address] [address] Phone: tel: fax: Referral ID Status Reason Start Date Expiration Date V isits Requested Visits Authorized [id number] Authorized 03/06/2022 03/30/2027 1 1 Encounter Details Date Type Department Care Team (Latest Contact Info) Description 04/02/2023 11:30 AM NARCOTICS AGENT Clinical Support [facility] [address] [phone] Nurse, [facility] Vitamin B 12 deficiency (Primary Dx) [...] on file Legal Sex Male 3:42 PM NARCOTICS AGENT Gender Identity Not on file Sexual [...] as of this encounter Progress Notes * Umm Quesada RMA - 04/02/2023 11:30 AM CST Patient in for B12 injection. Tolerated well to right arm. Band-aid applied. No change in patient performance status since arrival to clinic. Patient discharged ambulatory. OTICS AGENT documented in this encounter Plan of Treatment Upcoming Encounters Date Type Department Care Team (Late st Contact Info) Description 04/07/2024 11:10 AM NARCOTICS AGENT Lab [facility] [address] [address] Lab, [facility] 04/07/2024 11:15 AM NARCOTICS AGENT Clinical Support [facility] [address] [phone] Nurse, [facility] [place] 05/12/2024 11:00 AM NARCOTICS AGENT Lab [facility] [address] [phone] Lab, [facility] [place] 05/12/2024 11:15 AM NARCOTICS AGENT Office Visit [facility] [address] [phone] Kev Moser MD [address] [place] [phone] 05/12/2024 11:30 AM NARCOTICS AGENT Clinical Support [facility] [address] [phone] Nurse, [facility] documented as of this encounter Visit Diagnoses Diagnosis Vitamin B 12 deficiency- Primary Other B-complex deficiencies documented in this encounter Administered Medications Inactive Administered Medications - up to 3 most recent administrations Medication Order MAR Action Action Date Dose Rate Site cyanocobalamin (VITAMIN B-12) injection 1,000 mcg 1,000 mcg, Subcutaneous, ONCE, 1 dose, On Fri04/02/23 at 1230, To be given 1 week prior to Chemotherapy. Route IM or SUBQ.Indications:Vitam in B 12 deficiency Given 04/02/2023 11:51 AM NARCOTICS AGENT 1,000 mcg Right Lateral Upper Arm documented in this encounter Additional Health Concerns Assessment Noted Time PHQ-9 Depression Total Score: 0 11/25/19 21 11:34 AM CDT documented as of this encounter Care Teams Lean Process Deployment Consultant Relationship Specialty Start Date End Date Scott Oneill MD PCP - General Internal Medicine 04/29/17 Tavo Mishra MD [address] [place] [address] [phone] Internal Medicine 04/29/17 Gilmer Barnard MD [address] [place] [address] Consulting Physician Internal Medicine 08/28/17 4 Kev Moser MD [address] [place] [phone] Consulting Physician Oncology 02/09/20 documented as of this encounter
--- OUTSIDE RECORDS SUMMARY | 2024-04-04 01:28 | XMS_ITS | Encounter Summary ---
Author Organization [employer] Care Team Providers Care Tin Worker Name Role Phone Scott Oneill MD Primary Care Provider Tavo Mishra MD Unavailable [phone] Gilmer Barnard MD Unavailable [phone] Kev Moser MD Unavailable [phone] Encounter Details Date Type Department Care Team (Latest Contact Info) Description 05/02/2023 Travel Social History Tobacco Use Types Packs/Day [...] on file Legal Sex Male 3:42 PM STUNT DOUBLE Gender Identity Not on file Sexual Orientation Not on file documented as of this encounter Plan of Treatment Upcoming Encounters Date Type Department Care Team (Late st Contact Info) Description 04/07/2024 11:10 AM STUNT DOUBLE Lab [facility] [address] [phone] Lab, [facility] 04/07/2024 11:15 AM STUNT DOUBLE Clinical Support [facility] [address] [phone] Nurse, [facility] 05/12/2024 11:00 AM STUNT DOUBLE Lab [facility] [address] [phone] Lab, [facility] 05/12/2024 11:15 AM STUNT DOUBLE Office Visit [facility] [address] [phone] Kev Moser MD [address] [place] [phone] 05/12/2024 11:30 AM STUNT DOUBLE Clinical Support [facility] [address] [phone] Nurse, [facility] documented as of this encounter Visit Diagnoses Not on filedocumented in this encounter Additional Health Concerns Assessment Noted Time PHQ-9 Depression Total Score: 0 11/25/19 21 11:34 AM CDT documented as of this encounter Care Teams Tin Worker Relationship Specialty Start Date End Date Scott Oneill MD PCP - General Internal Medicine 04/29/17 Tavo Mishra MD [address] [address] Internal Medicine 04/29/17 Gilmer Barnard MD [address] [address] Consulting Physician Internal Medicine 08/28/17 4 Kev Moser MD [address] [place] [phone] Consulting Physician Oncology 02/09/20 documented as of this encounter
--- OUTSIDE RECORDS SUMMARY | 2024-04-04 01:28 | XMS_ITS | Encounter Summary ---
Author Organization [facility] EHR Care Team Providers Care Child Nutrition Director Name Role Phone Scott Oneill MD Primary Care Provider [phone] Tavo Mishra MD Unavailable [phone] Gilmer Barnard MD Unavailable [phone] Kev Moser MD Unavailable [phone] Encounter Details Date Type Department Care Team (Latest Contact Info) Description 08/27/2023 Travel Social History Tobacco Use Types Packs/Day [...] on file Legal Sex Male 3:42 PM MACHINE II ENGRAVER Gender Identity Not on file Sexual Orientation Not on file documented as of this encounter Functional Status * Question Answer Date of Assessment Author Little interest or pleasure in doing things Not at all 08/27/2023 10:40 AM Viji Kennedy LPN Feeling down, depressed, or hopeless Not at all 08/27/2023 10:40 AM Viji Kennedy LPN * Over the past 2 weeks, how often have you been bothered by any of the following problems? Question Answer Date of Assessment Author Patient Health Questionnaire-2 Score 0 08/27/2023 10:40 AM CDT Theresa Tobias LPN documented as of this encounter Plan of Treatment Upcoming Encounters Date Type Department Care Team (Late st Contact Info) Description 04/07/2024 11:10 AM MACHINE II ENGRAVER Lab [facility] [address] [address] Lab, [facility] 04/07/2024 11:15 AM MACHINE II ENGRAVER Clinical Support [facility] [address] [phone] Nurse, [facility] 05/12/2024 11:00 AM MACHINE II ENGRAVER Lab [facility] [address] [phone] Lab, [facility] 05/12/2024 11:15 AM MACHINE II ENGRAVER Office Visit [facility] [address] [phone] Kev Moser MD [address] [place] [phone] 05/12/2024 11:30 AM MACHINE II ENGRAVER Clinical Support [facility] [address] [phone] Nurse, [facility] documented as of this encounter Visit Diagnoses Not on filedocumented in this encounter Additional Health Concerns Assessment Noted Time PHQ-9 Depression Total Score: 0 11/25/19 21 11:34 AM CDT documented as of this encounter Care Teams Child Nutrition Director Relationship Specialty Start Date End Date Scott Oneill MD PCP - General Internal Medicine 04/29/17 Tavo Mishra MD [address] [place] [address] Internal Medicine 04/29/17 Gilmer Barnard MD [address] [place] [address] [phone] Consulting Physician Internal Medicine 08/28/17 4 Kev Moser MD [address] [place] [phone] Consulting Physician Oncology 02/09/20 documented as of this encounter
--- OUTSIDE RECORDS SUMMARY | 2024-04-04 01:28 | XMS_ITS | Encounter Summary ---
Author Organization [facility] Address [address] [place] [address] Phone Care Team Providers Care Production Analyst Name Role Phone Scott Oneill MD Primary Care Provider Tavo Mishra MD Unavailable [phone] Gilmer Barnard MD Unavailable [phone] Kev Moser MD Unavailable [phone] Reason for Visit * Reason Comments Other Eliquis sample dispe nse Encounter Details Date Type Department Care Team (Latest Contact Info) Description 06/20/2023 12:00 PM CDT Clinical Support [facility] [address] [address] Nurse, Cc [facility] Other autoimmune hemolytic anemia (HCC) [...] on file Legal Sex Male 3:42 PM EXPLOSIVES OPERATOR Gender Identity Not on file Sexual Orientation Not on file documented as of this encounter Progress Notes * Fritz Pena RN - 06/20/2023 12:00 PM CDT Dispensed: Eliquis 5 mg tablets 4 boxes given (56 tabs) LOT#: [id number] EXP: 08/2024 documented in this encounter Plan of Treatment Upcoming Encounters Date Type Department Care Team (Late st Contact Info) Description 04/07/2024 11:10 AM EXPLOSIVES OPERATOR Lab [facility] [address] [address] Lab, [facility] 04/07/2024 11:15 AM EXPLOSIVES OPERATOR Clinical Support [facility] [address] [phone] Nurse, [facility] 05/12/2024 11:00 AM EXPLOSIVES OPERATOR Lab [facility] [address] [address] Lab, [facility] 05/12/2024 11:15 AM EXPLOSIVES OPERATOR Office Visit [facility] [address] [phone] Kev Moser MD [address] [place] [phone] 05/12/2024 11:30 AM EXPLOSIVES OPERATOR Clinical Support [facility] [address] [phone] Nurse, [facility] documented as of this encounter Visit Diagnoses Diagnosis Other autoimmune hemolytic anemia (HCC) documented in this encounter Additional Health Concerns Assessment Noted Time PHQ-9 Depression Total Score: 0 11/25/19 21 11:34 AM CDT documented as of this encounter Care Teams Production Analyst Relationship Specialty Start Date End Date Scott Oneill MD PCP - General Internal Medicine 04/29/17 Tavo Mishra MD [address] [address] Internal Medicine 04/29/17 Gilmer Barnard MD [address] [phone] Consulting Physician Internal Medicine 08/28/17 4 Kev Moser MD [address] [place] [phone] Consulting Physician Oncology 02/09/20 documented as of this encounter
--- OUTSIDE RECORDS SUMMARY | 2024-04-04 01:28 | XMS_ITS | Encounter Summary ---
Author Organization [facility] Care Team Providers Care Licensing Engineer Name Role Phone Scott Oneill MD Primary Care Provider [phone] Tavo Mishra MD Unavailable [phone] Gilmer Barnard MD Unavailable [phone] Kev Moser MD Unavailable [phone] Encounter Details Date Type Department Care Team (Latest Contact Info) Description 10/06/2023 Travel Social History Tobacco Use Types Packs/Day [...] on file Legal Sex Male 3:42 PM RECRUITER Gender Identity Not on file Sexual Orientation Not on file documented as of this encounter Plan of Treatment Upcoming Encounters Date Type Department Care Team (Late st Contact Info) Description 04/07/2024 11:10 AM RECRUITER Lab [facility] [address] [phone] Lab, [facility] 04/07/2024 11:15 AM RECRUITER Clinical Support [facility] [address] [phone] Nurse, [facility] 05/12/2024 11:00 AM RECRUITER Lab [facility] [address] [phone] Lab, [facility]c [facility] 05/12/2024 11:15 AM RECRUITER Office Visit [facility] [address] [phone] Kev Moser MD [address] [place] [phone] 05/12/2024 11:30 AM RECRUITER Clinical Support [facility] [address] [phone] Nurse, [facility] documented as of this encounter Visit Diagnoses Not on filedocumented in this encounter Additional Health Concerns Assessment Noted Time PHQ-9 Depression Total Score: 0 11/25/19 21 11:34 AM CDT documented as of this encounter Care Teams Licensing Engineer Relationship Specialty Start Date End Date Scott Oneill MD PCP - General Internal Medicine 04/29/17 Tavo Mishra MD [address] [address] Internal Medicine 04/29/17 Gilmer Barnard MD [address] [address] Consulting Physician Internal Medicine 08/28/17 4 Kev Moser MD [address] [place] [phone] Consulting Physician Oncology 02/09/20 documented as of this encounter
--- OUTSIDE RECORDS SUMMARY | 2024-04-04 01:28 | XMS_ITS | Encounter Summary ---
Author Organization [facility] Address [address] [place] [address] Phone Care Team Providers Care Physiological Chemist Name Role Phone Scott Oneill MD Primary Care Provider [phone] Tavo iMshra MD Unavailable [phone] Gilmer Barnard MD Unavailable [phone] Kev Moser MD Unavailable [phone] Reason for Visit * Reason Comments Follow-up Encounter Details Date Type Department Care Team (Late st Contact Info) Description 07/02/2023 11:15 AM CDT Office Visit [facility] [place] [address] [place] [address] Sindi Qiu, ACTUARY CLERK, SEASONER [address] [place] [address] Other autoimmune hemolytic anemia (HCC) (Primary Dx); Iron deficiency anemia due to sideropenic dysphagia; Vitamin B 12 deficiency; Anemia, unspecified type; Stage 3a chronic kidney disease (HCC) Social History Tobacco Use Types Packs/Day Years Used Date Smoking Tobacco: Former Cigarettes 1 30 0 05/23/1981 - 05/23/2011 Smokeless Tobacco: Never Tobacco Cessation:Counseling Given: Yes Alcohol Use Standard Drinks/Week Comments No 0 (1 standard drink = 0.6 oz pur e alcohol) PHQ-2 Answer Date Recorded Total Score - Questions 1-9 0 12/0 05/2020 Sex and Gender Information Value Date Recorded Sex Assigned at Not on file Legal Sex Male 3:42 PM SHOCK ABSORPTION FLOOR LAYER Gender Identity Not on file Sexual Orientation Not on file documented as of this encounter Last Filed Vital Signs Vital Sign Reading Time Taken Comments Blood Pressure 138/70 07/02/2023 11:15 AM CDT Pulse 61 07/02/2023 11:15 AM CDT Temperature 36.8 ??C (98.2 ??F) 07/02/2023 11:15 AM C DT Respiratory Rate 18 07/02/2023 11:15 AM CDT Oxygen Saturation 95% 07/02/2023 11:15 AM CDT Inhaled Oxygen Concentration - - Weight 106.6 kg (235 lb) 07/02/2023 11:15 AM CDT Height 165.1 cm (5' 5 ) 07/02/2023 11:15 AM CDT Body Mass Index 39.11 07/02/2023 11:15 AM CDT documented in this encounter Functional Status * Question Answer Date of Assessment Author Little interest or pleasure in doing things Not at all 07/02/2023 11:14 AM CDT Yesica Barber CMA Feeling down, depressed, or [...] this encounter Progress Notes * Sindi Qiu, ACTUARY CLERK, SEASONER - 07/02/2023 11:15 AM CDT Images from the original note were not included. Patient: Britton Nielsen Age: 68 y.o. : 1955 Encounter Dept: [facility] Encounter Date: 07/02/2023 Care Team: Current Providers PCP: Scott Oneill MD Care Team Provider: Tavo Mishra MD Care Team Provider: Gilmer Barnard MD Care Team Provider: Kev Moser MD Encounter Provider: Sindi Qiu APRN, CNP Referring Provider: not found Nurse Practitioner: Sindi Qiu APRN, CNP HISTORY OF PRESENT ILLNESS: Britton returns today for followup. He remains on his monthly vitamin B12 injections. He is taking oral iron supplementation. He remains on Eliquis 5 mg b.i.d. Since last visit with us three months ago, he has been evaluated by Dr. Goldberg at [facility] as well as Dr. Weiss of [facility] diagnosed with interstitial lung disease by Dr. Goldberg and at that time workup showed ANH of 1:640. Positive MEET and indeterminate ANCA so he was referred to Rheumatology. They did workup on him about four weeks ago. He has a followup with both offices next month. He reports continued shortness of breath and fatigue. Otherwise, he has no complaints today. DIAGNOSIS: 1. Glomerulonephritis, sclerosing (renal [...] PAST TREATMENT: 1. Gastroduodenal artery embolization at [facility] 05/2017. 2. Cytoxan 100 mg daily. 3. 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 PLAN: 1. Vitamin B12 injection today. 2. Continue Eliquis 5 mg b.i.d. Samples were provided today. 2. Labs today including CBC, CMP, iron studies, vitamin B12 and folic acid. 3. Continue current work up with Rheumatology and Pulmonology in regard to his interstitial lung disease and positive ANCA. He has a follow up with Pulmonology on 08/01/23 and Rheumatology on 08/19/23. 4. Plan to follow up with us in about eight weeks after he has had follow up with other specialists. Call with any questions, problems or concerns. Dr. Moser was present today [...] Everywhere. Kev Moser MD, FACP Sindi Qiu, SUPERVISOR LITHARGE-Vito/sacha Vitals: Vitals: 07/02/23 1115 BP: 138/70 BP Location: Left Arm BP Position: Sitting BP Cuff Size: Regular Pulse: 61 Resp: 18 Temp: 98.2 ??F (36.8 ??C) TempSrc: Temporal SpO2: 95% Weight: 235 lb (106.6 kg) Height: 5' 5 (1.651 m) Body surface area is 2.21 meters squared. Body mass index is 39.11 kg/m??. Pain Score: 0 - No pain [...] Types: Cigarettes Quit date: 05/23/2011 Years since quittin.1 Smokeless tobacco: Never Vaping [...] Current Medications: Outpatient Encounter Medications as of 07/02/2023 Medication Sig Dispense Refill albuterol 108 (90 Base) MCG/ACT Aerosol Solution INHALE 2 PUFFS BY MOUTH EVERY 4 HOURS NEEDED FOR SHORTNESS OF BREATH FOR WHEEZING (Patient not taking: Reported on 04/02/2023) Anoro Ellipta 62.5-25 MCG/ACT AEROSOL POWDER, BREATH ACTIVATED INHALE 1 PUFF BY MOUTH ONCE DAILY [DISCONTINUED] apixaban (Eliquis) 5 MG Tablet Take 1 [...] daily 30 Tab 0 ergocalciferol (VITAMIN D) 74555 UNIT Capsule Take 50,000 Units by mouth [...] facility-administered encounter medications on file as of 07/02/2023. Labs: Lab on 07/02/2023 Component Date Value Ref Range Status WBC 07/02/2023 5.3 4.0 - 10.0 10*3/uL [...] 15.1 (H) 11.6 - 14.4 % Final Reticulocyte count 07/02/2023 2.23 (H) 0.51 - 1.81 % Final RET-He 07/02/2023 31.00 28.20 - 36.60 pg Final Comment: RET-He is a direct assessment of incorporation of iron into erythrocyte hemoglobin. It provides an indirect measure of the iron available for new erythropoiesis over past 2-4 days. Cosigned by Kev Moser MD at 07/08/2023 10:42 AM CDT documented in this encounter Plan of Treatment Upcoming Encounters Date Type Department Care Team (Late st Contact Info) Description 04/07/2024 11:10 AM SHOCK ABSORPTION FLOOR LAYER Lab [facility] [address] [phone] Lab, [facility] 04/07/2024 11:15 AM SHOCK ABSORPTION FLOOR LAYER Clinical Support [facility] [address] [phone] Nurse, [facility]c [facility] 05/12/2024 11:00 AM SHOCK ABSORPTION FLOOR LAYER Lab [facility] [address] [address] Lab, [facility] 05/12/2024 11:15 AM SHOCK ABSORPTION FLOOR LAYER Office Visit [facility] [address] [phone] Kev Moser MD [address] [place] [phone] 05/12/2024 11:30 AM SHOCK ABSORPTION FLOOR LAYER Clinical Support [facility] [address] [phone] Nurse, [facility]c [facility] documented as of this encounter Visit Diagnoses Diagnosis 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 Vitamin B 12 deficiency Other B-complex deficiencies Anemia, unspecified type Stage 3a chronic kidney disease (HCC) documented in this encounter Additional Health Concerns Assessment Noted Time PHQ-9 Depression Total Score: 0 11/25/19 21 11:34 AM CDT documented as of this encounter Care Teams Physiological Chemist Relationship Specialty Start Date End Date Scott Oneill MD PCP - General Internal Medicine 04/29/17 Tavo Mishra MD [address] [place] [address] Internal Medicine 04/29/17 Gilmer Barnard MD [address] [place] [address] Consulting Physician Internal Medicine 08/28/17 4 Kev Moser MD [address] [place] [phone] Consulting Physician Oncology 02/09/20 documented as of this encounter
--- OUTSIDE RECORDS SUMMARY | 2024-04-04 01:28 | XMS_ITS | Encounter Summary ---
Author Organization [facility] Address [address] [place] [address] Phone Care Team Providers Care Diamond Picker Name Role Phone Scott Oneill MD Primary Care Provider [phone] Tavo Mishra MD Unavailable [phone] Gilmer Barnard MD Unavailable [phone] Kev Moser MD Unavailable [phone] Reason for Visit * Reason Comments Other Eliquis sample dispe nse Encounter Details Date Type Department Care Team (Latest Contact Info) Description 05/21/2023 12:00 PM REWORKER Clinical Support [facility] [address] [phone] Nurse, Cc [facility] Other autoimmune hemolytic anemia (HCC) Social [...] on file Legal Sex Male 3:42 PM REWORKER Gender Identity Not on file Sexual Orientation Not on file documented as of this encounter Progress Notes * Fritz Pena RN - 05/21/2023 12:00 PM CST Dispensed: Eliquis 5 mg tablets 4 boxes given (56 tabs) LOT#:??[id number] EXP:??11/2024 RKER documented in this encounter Plan of Treatment Upcoming Encounters Date Type Department Care Team (Late st Contact Info) Description 04/07/2024 11:10 AM REWORKER Lab [facility] [address] [address] Lab, [facility] 04/07/2024 11:15 AM REWORKER Clinical Support [facility] [address] [phone] Nurse, [facility] 05/12/2024 11:00 AM REWORKER Lab [facility] [address] [phone] Lab, [facility] 05/12/2024 11:15 AM REWORKER Office Visit [facility] [address] [phone] Kev Moser MD [address] [place] [phone] 05/12/2024 11:30 AM REWORKER Clinical Support [facility] [address] [phone] Nurse, [facility] documented as of this encounter Visit Diagnoses Diagnosis Other autoimmune hemolytic anemia (HCC) documented in this encounter Additional Health Concerns Assessment Noted Time PHQ-9 Depression Total Score: 0 11/25/19 21 11:34 AM CDT documented as of this encounter Care Teams Diamond Picker Relationship Specialty Start Date End Date Scott Oneill MD PCP - General Internal Medicine 04/29/17 Tavo Mishra MD [address] [address] Internal Medicine 04/29/17 Gilmer Barnard MD [address] [phone] Consulting Physician Internal Medicine 08/28/17 4 Kev Moser MD [address] [place] [phone] Consulting Physician Oncology 02/09/20 documented as of this encounter
--- OUTSIDE RECORDS SUMMARY | 2024-04-04 01:28 | XMS_ITS | Encounter Summary ---
Author Organization [facility] Address [address] [place] [address] Phone Care Team Providers Care Twisting Press Operator Name Role Phone Scott Oneill MD Primary Care Provider Tavo Mishra MD Unavailable [phone] Gilmer Barnard MD Unavailable [phone] Kev Moser MD Unavailable [phone] Reason for Visit * Reason Comments Medication Refill Encounter Details Date Type Department Care Team (Late st Contact Info) Description 07/27/2023 Refill [facility] [address] [phone] Kev Moser MD [address] [place] [phone] Medication Refill Social History Tobacco Use [...] file Legal Sex Male 3:42 PM MANUFACTURING ASSOCIATE Gender Identity Not on file Sexual Orientation Not on file documented as of this encounter Miscellaneous Notes * Telephone Encounter - Maia Garza RMA - 07/28/2023 12:14 PM CDT Refill request. Refill if appropriate. documented in this encounter Plan of Treatment Upcoming Encounters Date Type Department Care Team (Late st Contact Info) Description 04/07/2024 11:10 AM MANUFACTURING ASSOCIATE Lab [facility] [address] [phone] Lab, [facility] 04/07/2024 11:15 AM MANUFACTURING ASSOCIATE Clinical Support [facility] [address] [phone] Nurse, [facility] 05/12/2024 11:00 AM MANUFACTURING ASSOCIATE Lab [facility] [address] [phone] Lab, [facility] 05/12/2024 11:15 AM MANUFACTURING ASSOCIATE Office Visit [facility] [address] [phone] Kev Moser MD [address] [place] [phone] 05/12/2024 11:30 AM MANUFACTURING ASSOCIATE Clinical Support [facility] [address] [phone] Nurse, [facility] documented as of this encounter Visit Diagnoses Not on filedocumented in this encounter Additional Health Concerns Assessment Noted Time PHQ-9 Depression Total Score: 0 11/25/19 21 11:34 AM CDT documented as of this encounter Care Teams Twisting Press Operator Relationship Specialty Start Date End Date Scott Oneill MD PCP - General Internal Medicine 04/29/17 Tavo Mishra MD [address] [address] Internal Medicine 04/29/17 Gilmer Barnard MD [address] [place] [address] Consulting Physician Internal Medicine 08/28/17 4 Kev Moser MD [address] [place] [phone] Consulting Physician Oncology 02/09/20 documented as of this encounter
--- OUTSIDE RECORDS SUMMARY | 2024-04-04 01:28 | XMS_ITS | Encounter Summary ---
Author Organization [facility] Address [address] [place] [address] Phone Care Team Providers Care Marine Equipment Research Engineer Name Role Phone Scott Oneill MD Primary Care Provider [phone] Tavo Mishra MD Unavailable [phone] Gilmer Barnard MD Unavailable [phone] Kev Moser MD Unavailable [phone] Reason for Visit * Reason Comments Other Eliquis sample dispe nse Encounter Details Date Type Department Care Team (Latest Contact Info) Description 02/24/2023 11:00 AM BUSINESS APPLICATIONS ANALYST Clinical Support [facility] [address] [phone] Nurse, Cc [facility] Other autoimmune hemolytic anemia (HCC) [...] file Legal Sex Male 3:42 PM BUSINESS APPLICATIONS ANALYST Gender Identity Not on file Sexual Orientation Not on file documented as of this encounter Progress Notes * Fritz Pena RN - 02/24/2023 11:00 AM CST Eliquis 5mg sample dispense Take one tablet by mouth twice daily. 4 boxes given (56 tabs) LOT#:??[id number] EXP:??10/22 NESS APPLICATIONS ANALYST documented in this encounter Plan of Treatment Upcoming Encounters Date Type Department Care Team (Late st Contact Info) Description 04/07/2024 11:10 AM BUSINESS APPLICATIONS ANALYST Lab [facility] [address] [address] Lab, [facility] 04/07/2024 11:15 AM BUSINESS APPLICATIONS ANALYST Clinical Support [facility] [address] [phone] Nurse, [facility] 05/12/2024 11:00 AM BUSINESS APPLICATIONS ANALYST Lab [facility] [address] [phone] Lab, [facility] 05/12/2024 11:15 AM BUSINESS APPLICATIONS ANALYST Office Visit [facility] [address] [phone] Kev Moser MD [address] [place] [phone] 05/12/2024 11:30 AM BUSINESS APPLICATIONS ANALYST Clinical Support [facility] [address] [phone] Nurse, [facility] documented as of this encounter Visit Diagnoses Diagnosis Other autoimmune hemolytic anemia (HCC) documented in this encounter Additional Health Concerns Assessment Noted Time PHQ-9 Depression Total Score: 0 11/25/19 21 11:34 AM CDT documented as of this encounter Care Teams Marine Equipment Research Engineer Relationship Specialty Start Date End Date Scott Oneill MD PCP - General Internal Medicine 04/29/17 Tavo Mishra MD [address] [address] Internal Medicine 04/29/17 Gilmer Barnard MD [address] [place] [address] Consulting Physician Internal Medicine 08/28/17 4 Kev Moser MD [address] [place] [phone] Consulting Physician Oncology 02/09/20 documented as of this encounter
--- OUTSIDE RECORDS SUMMARY | 2024-04-04 01:28 | XMS_ITS | Encounter Summary ---
Author Organization [facility] Address [address] [place] [address] Phone Care Team Providers Care Finger Buffs Assembler Name Role Phone Scott Oneill MD Primary Care Provider [phone] Tavo Mishra MD Unavailable [phone] Gilmer Barnard MD Unavailable [phone] Kev Moser MD Unavailable [phone] Reason for Visit * Reason Comments Therapeutic Injection * Episode Based Medications (Routine) - Authorized Specialty Diagnoses / Procedures Referred By Contamy t Referred To Contact Diagnoses Vitamin B 12 deficiency Procedures VITAMIN B12 INJ RANGE DOSE 1-1,000 MCG Kev Moser MD [address] [place] [phone] Phone: tel: fax: [facility] [address] [address] Phone: tel: fax: Referral ID Status Reason Start Date Expiration Date V isits Requested Visits Authorized [id number] Authorized 03/06/2022 03/30/2027 1 1 Encounter Details Date Type Department Care Team (Latest Contact Info) Description 02/10/2023 11:00 AM HEAVY TRUCK TECHNICIAN Clinical Support [facility] [address] [phone] Nurse, [facility] Vitamin B 12 deficiency (Primary Dx) [...] on file Legal Sex Male 3:42 PM HEAVY TRUCK TECHNICIAN Gender Identity Not on file Sexual [...] hopeless Not at all 02/10/2023 11:31 AM Alo Oquendo CMA * Over the past 2 weeks, how often have you been bothered by any of the following problems? Question Answer Date of Assessment Author Patient Health Questionnaire-2 Score 0 02/10/2023 11:31 AM Christy Oquendo CMA documented as of this encounter Progress Notes * Josephine Aleman RN - 02/10/2023 11:00 AM CST Patient in for B12 injection. Tolerated well to right arm. Band-aid applied. No change in patient performance status since arrival to clinic. Patient discharged ambulatory. Y TRUCK TECHNICIAN documented in this encounter Plan of Treatment Upcoming Encounters Date Type Department Care Team (Late st Contact Info) Description 04/07/2024 11:10 AM HEAVY TRUCK TECHNICIAN Lab [facility] [address] [phone] Lab, [facility] 04/07/2024 11:15 AM HEAVY TRUCK TECHNICIAN Clinical Support [facility] [address] [phone] Nurse, [facility] 05/12/2024 11:00 AM HEAVY TRUCK TECHNICIAN Lab [facility] [address] [phone] Lab, [facility] 05/12/2024 11:15 AM HEAVY TRUCK TECHNICIAN Office Visit [facility] [address] [phone] Kev Moser MD [address] [place] [phone] 05/12/2024 11:30 AM HEAVY TRUCK TECHNICIAN Clinical Support [facility] [address] [phone] Nurse, [facility] documented as of this encounter Visit Diagnoses Diagnosis Vitamin B 12 deficiency- Primary Other B-complex deficiencies documented in this encounter Administered Medications Inactive Administered Medications - up to 3 most recent administrations Medication Order MAR Action Action Date Dose Rate Site cyanocobalamin (VITAMIN B-12) injection 1,000 mcg 1,000 mcg, Subcutaneous, ONCE, 1 dose, On Fri02/10/23 at 1200, To be given 1 week prior to Chemotherapy. Route IM or SUBQ.Indications:Vitam in B 12 deficiency Given 02/10/2023 11:31 AM HEAVY TRUCK TECHNICIAN 1,000 mcg Right Lateral Upper Arm documented in this encounter Additional Health Concerns Assessment Noted Time PHQ-9 Depression Total Score: 0 11/25/19 21 11:34 AM CDT documented as of this encounter Care Teams Finger Buffs Assembler Relationship Specialty Start Date End Date Scott Oneill MD PCP - General Internal Medicine 04/29/17 Tavo Mishra MD [address] [address] Internal Medicine 04/29/17 Gilmer Barnard MD [address] [place] [address] Consulting Physician Internal Medicine 08/28/17 4 Kev Moser MD [address] [place] [phone] Consulting Physician Oncology 02/09/20 documented as of this encounter
--- OUTSIDE RECORDS SUMMARY | 2024-04-04 01:28 | XMS_ITS | Encounter Summary ---
Author Organization [facility] Address [address] [place] [address] Phone Care Team Providers Care Block And Case Maker Name Role Phone Scott Oneill MD Primary Care Provider Tavo Mishra MD Unavailable [phone] Gilmer Barnard MD Unavailable [phone] Kev Moser MD Unavailable [phone] Reason for Visit * Reason Comments ELIQUIS SAMPLE DISPENSE Encounter Details Date Type Department Care Team (Latest Contact Info) Description 10/06/2023 12:30 PM CDT Clinical Support [facility] [address] [phone] Nurse, [facility] Other autoimmune hemolytic anemia (HCC) Social History [...] on file Legal Sex Male 3:42 PM DAMAGED FREIGHT INSPECTOR Gender Identity Not on file Sexual Orientation Not on file documented as of this encounter Progress Notes * Fritz Pena RN - 10/06/2023 12:30 PM CDT Dispensed: Eliquis 5 mg tablets 4 boxes given (56 tabs) LOT#: [id number] EXP: 11/2024 documented in this encounter Plan of Treatment Upcoming Encounters Date Type Department Care Team (Late st Contact Info) Description 04/07/2024 11:10 AM DAMAGED FREIGHT INSPECTOR Lab [facility] [address] [phone] Lab, [facility] 04/07/2024 11:15 AM DAMAGED FREIGHT INSPECTOR Clinical Support [facility] [address] [phone] Nurse, [facility] 05/12/2024 11:00 AM DAMAGED FREIGHT INSPECTOR Lab [facility] [address] [phone] Lab, [facility] 05/12/2024 11:15 AM DAMAGED FREIGHT INSPECTOR Office Visit [facility] [address] [phone] Kev Moser MD [address] [place] [phone] 05/12/2024 11:30 AM DAMAGED FREIGHT INSPECTOR Clinical Support [facility] [address] [phone] Nurse, [facility] documented as of this encounter Visit Diagnoses Diagnosis Other autoimmune hemolytic anemia (HCC) documented in this encounter Additional Health Concerns Assessment Noted Time PHQ-9 Depression Total Score: 0 11/25/19 21 11:34 AM CDT documented as of this encounter Care Teams Block And Case Maker Relationship Specialty Start Date End Date Scott Oneill MD PCP - General Internal Medicine 04/29/17 Tavo Mishra MD [address] [address] Internal Medicine 04/29/17 Gilmer Barnard MD [address] [address] Consulting Physician Internal Medicine 08/28/17 4 Kev Moser MD [address] [place] [phone] Consulting Physician Oncology 02/09/20 documented as of this encounter
--- OUTSIDE RECORDS SUMMARY | 2024-04-04 01:28 | XMS_ITS | Encounter Summary ---
Author Organization [employer] Care Team Providers Care Site Specialist Name Role Phone Scott Oneill MD Primary Care Provider [phone] Tavo Mishra MD Unavailable [phone] Gilmer Barnard MD Unavailable [phone] Kev Moser MD Unavailable [phone] Encounter Details Date Type Department Care Team (Latest Contact Info) Description 05/30/2023 Travel Social History Tobacco Use Types Packs/Day [...] file Legal Sex Male 3:42 PM CLIENT RENEWAL SPECIALIST Gender Identity Not on file Sexual Orientation Not on file documented as of this encounter Plan of Treatment Upcoming Encounters Date Type Department Care Team (Late st Contact Info) Description 04/07/2024 11:10 AM CLIENT RENEWAL SPECIALIST Lab [facility] [address] [phone] Lab, [facility] 04/07/2024 11:15 AM CLIENT RENEWAL SPECIALIST Clinical Support [facility] [address] [phone] Nurse, [facility] 05/12/2024 11:00 AM CLIENT RENEWAL SPECIALIST Lab [facility] [address] [phone] Lab, [facility] 05/12/2024 11:15 AM CLIENT RENEWAL SPECIALIST Office Visit [facility] [address] [phone] Kev Moser MD [address] [place] [phone] 05/12/2024 11:30 AM CLIENT RENEWAL SPECIALIST Clinical Support [facility] [address] [phone] Nurse, [facility] documented as of this encounter Visit Diagnoses Not on filedocumented in this encounter Additional Health Concerns Assessment Noted Time PHQ-9 Depression Total Score: 0 11/25/19 21 11:34 AM CDT documented as of this encounter Care Teams Site Specialist Relationship Specialty Start Date End Date Scott Oneill MD PCP - General Internal Medicine 04/29/17 Tavo Mishra MD [address] [address] Internal Medicine 04/29/17 Gilmer Barnard MD [address] [address] Consulting Physician Internal Medicine 08/28/17 4 Kev Moser MD [address] [place] [phone] Consulting Physician Oncology 02/09/20 documented as of this encounter
--- OUTSIDE RECORDS SUMMARY | 2024-04-04 01:28 | XMS_ITS | Encounter Summary ---
Author Organization [employer] Care Team Providers Care Roaster Operator Name Role Phone Scott Oneill MD Primary Care Provider [phone] Tavo Mishra MD Unavailable [phone] Gilmer Barnard MD Unavailable [phone] eKv Moser MD Unavailable [phone] Encounter Details Date Type Department Care Team (Latest Contact Info) Description 04/02/2023 Travel Social History Tobacco Use Types Packs/Day [...] on file Legal Sex Male 3:42 PM HOUSEKEEPING ROOM ATTENDANT Gender Identity Not on file Sexual Orientation [...] Health Questionnaire-2 Score 0 04/02/2023 11:34 AM HOUSEKEEPING ROOM ATTENDANT Christy Barber CMA documented as of this encounter Plan of Treatment Upcoming Encounters Date Type Department Care Team (Late st Contact Info) Description 04/07/2024 11:10 AM HOUSEKEEPING ROOM ATTENDANT Lab [facility] [address] [phone] Lab, [facility] 04/07/2024 11:15 AM HOUSEKEEPING ROOM ATTENDANT Clinical Support [facility] [address] [phone] Nurse, [facility] 05/12/2024 11:00 AM HOUSEKEEPING ROOM ATTENDANT Lab [facility] [address] [phone] Lab, [facility] 05/12/2024 11:15 AM HOUSEKEEPING ROOM ATTENDANT Office Visit [facility] [address] [phone] Kev Moser MD [address] [place] [phone] 05/12/2024 11:30 AM HOUSEKEEPING ROOM ATTENDANT Clinical Support [facility] [address] [phone] Nurse, [facility] documented as of this encounter Visit Diagnoses Not on filedocumented in this encounter Additional Health Concerns Assessment Noted Time PHQ-9 Depression Total Score: 0 11/25/19 21 11:34 AM CDT documented as of this encounter Care Teams Roaster Operator Relationship Specialty Start Date End Date Scott Oneill MD PCP - General Internal Medicine 04/29/17 Tavo Mishra MD [address] [place] [address] Internal Medicine 04/29/17 Gilmer Barnard MD [address] [place] [phone] Consulting Physician Internal Medicine 08/28/17 4 Kev Moser MD [address] [place] [phone] Consulting Physician Oncology 02/09/20 documented as of this encounter
--- OUTSIDE RECORDS SUMMARY | 2024-04-04 01:28 | XMS_ITS | Encounter Summary ---
Author Organization [facility] Care Team Providers Care Adoption Worker Name Role Phone Scott Oneill MD Primary Care Provider Tavo Mishra MD Unavailable [phone] Gilmer Barnard MD Unavailable [phone] Kev Moser MD Unavailable [phone] Encounter Details Date Type Department Care Team (Latest Contact Info) Description 07/31/2023 Travel Social History Tobacco Use Types Packs/Day [...] on file Legal Sex Male 3:42 PM SCREED OPERATOR Gender Identity Not on file Sexual Orientation Not on file documented as of this encounter Plan of Treatment Upcoming Encounters Date Type Department Care Team (Late st Contact Info) Description 04/07/2024 11:10 AM SCREED OPERATOR Lab [facility] [address] [phone] Lab, [facility] 04/07/2024 11:15 AM SCREED OPERATOR Clinical Support [facility] [address] [phone] Nurse, [facility] 05/12/2024 11:00 AM SCREED OPERATOR Lab [facility] [address] [phone] Lab, [facility] 05/12/2024 11:15 AM SCREED OPERATOR Office Visit [facility] [address] [phone] Kev Moser MD [address] [place] [phone] 05/12/2024 11:30 AM SCREED OPERATOR Clinical Support [facility] [address] [phone] Nurse, [facility] documented as of this encounter Visit Diagnoses Not on filedocumented in this encounter Additional Health Concerns Assessment Noted Time PHQ-9 Depression Total Score: 0 11/25/19 21 11:34 AM CDT documented as of this encounter Care Teams Adoption Worker Relationship Specialty Start Date End Date Scott Oneill MD PCP - General Internal Medicine 04/29/17 Tavo Mishra MD [address] [address] Internal Medicine 04/29/17 Gilmer Barnard MD [address] [address] Consulting Physician Internal Medicine 08/28/17 4 Kev Moser MD [address] [place] [phone] Consulting Physician Oncology 02/09/20 documented as of this encounter
--- OUTSIDE RECORDS SUMMARY | 2024-04-04 01:29 | XMS_ITS | Encounter Summary ---
Author Organization [facility] Address [address] [place] [address] Phone Care Team Providers Care Harvester Operator Name Role Phone Scott Oneill MD Primary Care Provider Kev Prince DO Unavailable [phone] Tavo Mishra MD Unavailable [phone] Gilmer Barnard MD Unavailable [phone] Kev Moser MD Unavailable [phone] Reason for Visit * Reason Comments Other Encounter Details Date Type Department Care Team (Latest Contact Info) Description 03/07/2022 12:30 PM RETAIL SEASONAL SPECIALIST Clinical Support [facility] [address] [phone] Nurse, [facility]c [facility] 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 No / Unsure 03/07/2022 11:10 AM RETAIL SEASONAL SPECIALIST documented as of this encounter Last Filed Vital Signs Vital Sign Reading Time Taken Comments Blood Pressure 180/84 03/07/2022 11:54 AM RETAIL SEASONAL SPECIALIST Pulse 75 03/07/2022 11:18 AM RETAIL SEASONAL SPECIALIST Temperature - - Respiratory Rate - - Oxygen Saturation 98% 03/07/2022 11:18 AM RETAIL SEASONAL SPECIALIST Inhaled Oxygen Concentration - - Weight - - Height - - Body Mass Index - - documented in this encounter Progress Notes * Zahida Montes RN - 03/07/2022 12:30 PM CST Pt here for IV iron and reports cough from taking lisinopril. Pt stopped lisinopril on 03/03 and hasstarted taking labetalol. Took 100 mg labetalol last night and this morning. Recheck of B/P after 30 minutes of rest was 180/84. Pt mentioned he is on antibiotics for a sinus infection. Sheldon ROBIN states to hold infusion today and have pt call local telephone operator about elevated B/P. Pt exits restroom and states he is now nauseated. Questioned pt if he felt ok to reschedule today's appt for next week andhe said if I am even alive then, I feel terrible . Instructed pt to sit down and pt given snack and water. Spoke to Sheldon SPECIAL SKILLS OFFICER and pt to call local telephone operator and if continues to feel bad go to ED and or call PCP. Pt denies headache, blurred vision, seeing spots, and lightheadedness Spoke with pt and he states that he is feeling better after snack and admitted to eating poorly after losing 2 siblings in the last month. States he had coffee and small donut today with his daily medications. Pt states he feels better and that he is safe to drive home. Instructed pt to get lunch and to call local telephone operator. Pt to go to ED if he begins to feel worse again. Left ambulatory unaccompanied. Performance status unchanged since arrival to clinic. [place] SEASONAL SPECIALIST documented in this encounter Plan of Treatment Upcoming Encounters Date Type Department Care Team (Late st Contact Info) Description 04/07/2024 11:10 AM RETAIL SEASONAL SPECIALIST Lab [facility] [address] [phone] Lab, [facility] 04/07/2024 11:15 AM RETAIL SEASONAL SPECIALIST Clinical Support [facility] [address] [phone] Nurse, [facility] 05/12/2024 11:00 AM RETAIL SEASONAL SPECIALIST Lab [facility] [address] [phone] Lab, [facility] 05/12/2024 11:15 AM RETAIL SEASONAL SPECIALIST Office Visit [facility] [address] [phone] Kev Moser MD [address] [place] [phone] 05/12/2024 11:30 AM RETAIL SEASONAL SPECIALIST Clinical Support [facility] [address] [phone] Nurse, [facility] documented as of this encounter Visit Diagnoses Diagnosis 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 documented in this encounter Additional Health Concerns Assessment Noted Time PHQ-9 Depression Total Score: 0 11/25/19 21 11:34 AM CDT documented as of this encounter Care Teams Harvester Operator Relationship Specialty Start Date End Date Scott Oneill MD PCP - General Internal Medicine 04/29/17 Kev Prince DO Gastroenterology 04/29/17 12/09/22 Tavo Mishra MD [address] [address] Internal Medicine 04/29/17 Gilmer Barnard MD [address] [address] Consulting Physician Internal Medicine 08/28/17 4 Kev Moser MD [address] [place] [phone] Consulting Physician Oncology 02/09/20 documented as of this encounter
--- OUTSIDE RECORDS SUMMARY | 2024-04-04 01:29 | XMS_ITS | Encounter Summary ---
Author Organization [facility] Address [address] [place] [address] Phone Care Team Providers Care Swatch Cutter Name Role Phone Scott Oneill MD Primary Care Provider Kev Prince DO Unavailable [phone] Tavo Mishra MD Unavailable [phone] Gilmer Barnard MD Unavailable [phone] Kev Moser MD Unavailable [phone] Reason for Visit * Reason Comments Other Eliquis 5mg sample d ispense Encounter Details Date Type Department Care Team (Latest Contact Info) Description 06/28/2022 1:30 PM CDT Clinical Support [facility] [address] [phone] Nurse, [facility]c [facility] Other autoimmune hemolytic anemia (HCC) Social [...] on file Legal Sex Male 3:42 PM FIELD RING ASSEMBLER Gender Identity Not on file Sexual Orientation Not on file COVID-19 Exposure Response Date Recorded In the last 10 days, have yo u been in contact with someone who was confirmed or suspected to have Coronavirus/COVID-19? No / Unsure 06/28/2022 12:34 PM CDT documented as of this encounter Progress Notes * Fritz Pena, RN - 06/28/2022 1:30 PM CDT Eliquis 5mg sample dispense Take one tablet by mouth twice daily. 4 boxes given (56 tabs) LOT#:??[id number] EXP:??06/22 documented in this encounter Plan of Treatment Upcoming Encounters Date Type Department Care Team (Late st Contact Info) Description 04/07/2024 11:10 AM FIELD RING ASSEMBLER Lab [facility] [address] [phone] Lab, [facility] 04/07/2024 11:15 AM FIELD RING ASSEMBLER Clinical Support [facility] [address] [phone] Nurse, [facility] 05/12/2024 11:00 AM FIELD RING ASSEMBLER Lab [facility] [address] [phone] Lab, [facility] 05/12/2024 11:15 AM FIELD RING ASSEMBLER Office Visit [facility] [address] [phone] Kev Moser MD [address] [place] [phone] 05/12/2024 11:30 AM FIELD RING ASSEMBLER Clinical Support [facility] [address] [phone] Nurse, [facility] documented as of this encounter Visit Diagnoses Diagnosis Other autoimmune hemolytic anemia (HCC) documented in this encounter Additional Health Concerns Assessment Noted Time PHQ-9 Depression Total Score: 0 11/25/19 11:34 AM CDT documented as of this encounter Care Teams Swatch Cutter Relationship Specialty Start Date End Date Scott Oneill MD PCP - General Internal Medicine 04/29/17 Kev Prince DO Gastroenterology 04/29/17 12/09/22 Tavo Mishra MD [address] [facility] [address] [place] [phone] Internal Medicine 04/29/17 Gilmer Barnard MD [address] [address] Consulting Physician Internal Medicine 08/28/17 4 Kev Moser MD [address] [place] [phone] Consulting Physician Oncology 02/09/20 documented as of this encounter
--- OUTSIDE RECORDS SUMMARY | 2024-04-04 01:29 | XMS_ITS | Encounter Summary ---
Author Organization [employer] Care Team Providers Care Psychologists Name Role Phone Scott Oneill MD Primary Care Provider [phone] Kev Prince DO Unavailable [phone] Tavo Mishra MD Unavailable [phone] Gilmer Barnard MD Unavailable [phone] Kev Moser MD Unavailable [phone] Encounter Details Date Type Department Care Team (Latest Contact Info) Description 10/14/2022 Travel Social History Tobacco Use Types Packs/Day [...] on file Legal Sex Male 3:42 PM STEVEDORE DOCK Gender Identity Not on file Sexual Orientation Not on file COVID-19 Exposure Response Date Recorded In the last 10 days, have yo u been in contact with someone who was confirmed or suspected to have Coronavirus/COVID-19? No / Unsure 10/14/2022 12:04 PM CDT documented as of this encounter Plan of Treatment Upcoming Encounters Date Type Department Care Team (Late st Contact Info) Description 04/07/2024 11:10 AM STEVEDORE DOCK Lab [facility] [address] [phone] Lab, [facility] 04/07/2024 11:15 AM STEVEDORE DOCK Clinical Support [facility] [address] [phone] Nurse, [facility] 05/12/2024 11:00 AM STEVEDORE DOCK Lab [facility] [address] [address] Lab, [facility] 05/12/2024 11:15 AM STEVEDORE DOCK Office Visit [facility] [address] [phone] Kev Moser MD [address] [place] [phone] 05/12/2024 11:30 AM STEVEDORE DOCK Clinical Support [facility] [address] [phone] Nurse, [facility] documented as of this encounter Visit Diagnoses Not on filedocumented in this encounter Additional Health Concerns Assessment Noted Time PHQ-9 Depression Total Score: 0 11/25/19 21 11:34 AM CDT documented as of this encounter Care Teams Psychologists Relationship Specialty Start Date End Date Scott Oneill MD PCP - General Internal Medicine 04/29/17 Kev Prince DO Gastroenterology 04/29/17 12/09/22 Tavo Mishra MD [address] [facility] [address] [place] [phone] Internal Medicine 04/29/17 Gilmer Barnard MD [address] [phone] Consulting Physician Internal Medicine 08/28/17 4 Kev Moser MD [address] [place] [phone] Consulting Physician Oncology 02/09/20 documented as of this encounter
--- OUTSIDE RECORDS SUMMARY | 2024-04-04 01:29 | XMS_ITS | Encounter Summary ---
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 04/07/2024 11:15 AM THREAD SEPARATOR Clinical Support [facility] [address] [address] Nurse, [facility] 05/12/2024 11:00 AM THREAD SEPARATOR Lab [facility] [address] [address] Lab, [facility] 05/12/2024 11:15 AM THREAD SEPARATOR Office Visit [facility] [address] [phone] Kev Moser MD [address] [place] [phone] 05/12/2024 11:30 AM THREAD SEPARATOR Clinical Support [facility] [address] [address] Nurse, [facility] documented as of this encounter Visit Diagnoses Not on filedocumented in this encounter Additional Health Concerns Assessment Noted Time PHQ-9 Depression Total Score: 0 11/25/19 21 11:34 AM CDT documented as of this encounter Care Teams Char Conveyor Tender Relationship Specialty Start Date End Date Scott Oneill MD PCP - General Internal Medicine 04/29/17 Kev Prince DO Gastroenterology 04/29/17 12/09/22 Tavo Mishra MD [address] [facility] [address] [place] [address] [phone] Internal Medicine 04/29/17 Gilmer Barnard MD [address] [phone] Consulting Physician Internal Medicine 08/28/17 4 Kev Moser MD [address] [place] [address] Consulting Physician Oncology 02/09/20 documented as of this encounter
--- OUTSIDE RECORDS SUMMARY | 2024-04-04 01:29 | XMS_ITS | Encounter Summary ---
Author Organization [facility] Address [address] [place] [address] Phone Care Team Providers Care Brick Paver Name Role Phone Scott Oneill MD Primary Care Provider [phone] Kev Prince DO Unavailable [phone] Tavo Mishra MD Unavailable [phone] Gilmer Barnard MD Unavailable [phone] Kev Moser MD Unavailable [phone] Encounter Details Date Type Department Care Team (Late st Contact Info) Description 09/04/2022 11:15 AM CDT Lab [facility] [address] [address] Lab, [facility] Other autoimmune hemolytic anemia (HCC); Iron deficiency anemia due to sideropenic dysphagia; Vitamin B 12 deficiency; Stage 3a chronic [...] on file 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 No / Unsure 09/04/2022 10:48 AM CDT documented as of this encounter Functional Status * Question Answer Date of Assessment Author Little interest or pleasure in doing things Not at all 09/04/2022 10:56 AM CDT Rhonda Manrique CMA Feeling down, depressed, or hopeless Not at all 09/04/2022 10:56 AM CDT Rhonda Manrique CMA * Over the past 2 weeks, how often have you been bothered by any of the following problems? Question Answer Date of Assessment Author Patient Health Questionnaire -2 Score 0 09/04/2022 10:56 AM CDT Rhonda Manrique CMA documented as of this encounter Plan of Treatment Upcoming Encounters Date Type Department Care Team (Late st Contact Info) Description 04/07/2024 11:10 AM SCRAP CARRIER Lab [facility] [address] [phone] Lab, [facility] 04/07/2024 11:15 AM SCRAP CARRIER Clinical Support [facility] [address] [phone] Nurse, [facility] 05/12/2024 11:00 AM SCRAP CARRIER Lab [facility] [address] [phone] Lab, [facility] 05/12/2024 11:15 AM SCRAP CARRIER Office Visit [facility] [address] [phone] Kev Moser MD [address] [place] [phone] 05/12/2024 11:30 AM SCRAP CARRIER Clinical Support [facility] [address] [phone] Nurse, [facility] documented as of this encounter Procedures Procedure Name Priority Date/Time Associated Diagnosis Comments IRON W/ IRON BINDING CAPACITY [place] Routine 09/04/2022 10:51 AM CDT 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 Vitamin B 12 deficiency Stage 3a chronic kidney disease (HCC) VITAMIN B12 Routine 09/04/2022 10:51 AM CDT FOLIC ACID (FOLATE) Routine 09/04/2022 1 0:51 AM CDT FERRITIN Routine 09/04/2022 10:51 AM CDT 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 Vitamin B 12 deficiency Stage 3a chronic kidney disease (HCC) CMP (COMPREHENSIVE METABOLIC PANEL) Routine 09/04/2022 10:51 AM CDT 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 09/04/2022 10:5 1 AM CDT Cee Rios APRN, FISH DRIER CHEMISTRY ORDERAB LES Final Result [facility] [place] [address], * FOLIC ACID (FOLATE) (09/04/2022 10:51 AM CDT) Folate 14.21 >=5.90 ng/mL [facility] 09/04/2022 10:5 1 AM CDT Cee Rios CARRIER BLOWER, [place]ANA CHEMISTRY ORDERAB LES Final Result [facility] [place] [address], [place] [phone] * (ABNORMAL) COMPLETE BLOOD COUNT (CBC) WITH DIFF (09/04/2022 10:51 AM CDT) WBC 6.3 4.0 - 10.0 10*3/uL [facility] HGB 12.1(L) 13.7 - 17.5 g/dL [facility] HCT 37.5(L) 40.1 - 51.0 % [facility] PLT 141(L) 163 - 369 10*3/uL [facility] MPV 9.3(L) 9.4 - 12.4 fL [facility] RBC 4.00(L) 4.63 - 6.08 10*6/uL [facility] MCV 94 79 - 95 fL [facility] MCH 30.3 25.6 - 32.2 pg [facility] MCHC 32.3 32.2 - 36.5 g/dL [facility] RDW 14.2 11.6 - 14.4 % [facility] Absolute Neutrophil Count 4,640 cells/uL [facility] Absolute Seg Count 4,640 1,440 - 6,600 cells/uL [facility] Absolute Lymph Count 941 760 - 4,000 cells/uL [facility] Absolute Kemper Count 627 160 - 1,200 cells/uL [facility] Absolute Eos Count 63 0 - 300 cells/uL [facility] Segmented Neutrophils 74(H) 36 - 66 % [facility] Lymphocytes 15(L) 19 - 40 % [facility] Monocytes 10 4 - 12 % [facility] [place] [facility] Eosinophils 1 0 - 3 % [facility] [place] [facility] WBC Estimate Normal [facility] Platelet Estimate Low [facility] RBC Morphology Normal [facility] Blood 09/04/2022 10:5 1 AM CDT Narrative [facility] - 09/04/2022 3:06 PM CDT Release to patient->Immediate Cee Rios APRN, [place] HEMATOLOGY ORDERA BLES Final Result [facility] [address] [place] [address], * (ABNORMAL) CMP (COMPREHENSIVE METABOLIC PANEL) (09/04/2022 10:51 AM CDT) Glucose 95 70 - 105 mg/dL [facility] Blood Urea Nitrogen 29(H) 7 - 25 mg/dL [facility] Creatinine 2.0(H) 0.7 - 1.3 mg/dL [facility] Sodium 138 136 - 145 mEq/L [facility] Potassium 4.9 3.5 - 5.1 mEq/L [facility] Chloride 106 98 - 107 mEq/L [facility] Bicarbonate 24 21 - 31 mEq/L [facility] Total Bilirubin 0.8 0.3 - 1.0 mg/dL [facility] Alk. Phosphatase 91 34 - 104 U/L [facility] Aspartate Aminotransferase 15 13 - 39 U/L [facility] Alanine Aminotransferase 14 7 - 52 U/L [facility] Total Protein 6.8 6.4 - 8.9 g/dL [facility] Albumin 4.3 3.5 - 5.7 g/dL [facility] Calcium 9.0 8.6 - 10.3 mg/dL [facility] Anion Gap 12.9 7.0 - 15.0 mEq/L [facility] Globulin 2.5 2.0 - 3.5 g/dL [facility] EGFR 36(L) >60 ml/min/1. 73m2 [facility] Comment: This eGFR is calculated using 2020 CKD-EPI Creatinine equation without race modifier based on the NKF-ASN task force recommendations Blood 09/04/2022 10:5 1 AM CDT Narrative [facility] - 09/04/2022 12:00 PM CDT Release to patient->Immediate IS THE PATIENT REQUIRED TO BE FASTING FOR 8 HOURS?->No Cee Rios APRN, FISH DRIER CHEMISTRY ORDERAB LES Final Result Performing Organization Address City/[facility]/ZIP Co de Phone Number [facility] [address] [place] [address], [place] [phone] * (ABNORMAL) FERRITIN (09/04/2022 10:51 AM CDT) Ferritin 529(H) 24 - 336 ng/mL [facility] Blood 09/04/2022 10:5 1 AM CDT [facility] 09/05/2022 2:46 PM CDT Release to patient->Immediate Cee Rios APRN, FISH DRIER CHEMISTRY ORDERAB LES Final Result Performing Organization Address [facility] Co de Phone Number [facility] [address] [place] [address], [place] [phone] * (ABNORMAL) IRON W/ IRON BINDING CAPACITY [place] (09/04/2022 10:51 AM CDT) IRON 78 50 - 212 ug/dL [facility] UIBC 174 155 - 355 ug/dL [facility] TIBC 252(L) 261 - 478 ug/dl [facility] % Saturation 31 20 - 50 % [facility] 09/04/2022 10:5 1 AM CDT [facility] - 09/04/2022 12:00 PM CDT Release to patient->Immediate Cee Rios APRN, FISH DRIER LAB SEND OUTS F inal Result Performing Organization Address [facility]/ZIP Co de Phone Number [facility] [address] [place] [address], [place] [phone] documented in this encounter Visit Diagnoses Diagnosis 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 Vitamin B 12 deficiency Other B-complex deficiencies Stage 3a chronic kidney disease (HCC) documented in this encounter Additional Health Concerns Assessment Noted Time PHQ-9 Depression Total Score: 0 11/25/19 21 11:34 AM CDT documented as of this encounter Care Teams Brick Paver Relationship Specialty Start Date End Date Scott Oneill MD PCP - General Internal Medicine 04/29/17 Kev Prince DO Gastroenterology 04/29/17 12/09/22 Tavo Mishra MD [address] [place] [address] Internal Medicine 04/29/17 Gilmer Barnard MD [address] [place] [address] [phone] Consulting Physician Internal Medicine 08/28/17 4 Kev Moser MD [address] [place] [address] Consulting Physician Oncology 02/09/20 documented as of this encounter
--- OUTSIDE RECORDS SUMMARY | 2024-04-04 01:29 | XMS_ITS | Encounter Summary ---
Author Organization [facility] Address [address] [place] [address] Phone Care Team Providers Care Sock Liner Name Role Phone Scott Oneill MD Primary Care Provider [phone] Kev Prince DO Unavailable [phone] Tavo Mishra MD Unavailable [phone] Gilmer Barnard MD Unavailable [phone] Kev Moser MD Unavailable [phone] Reason for Visit * Reason Comments Therapeutic Injection * Episode Based Medications (Routine) - Authorized Specialty Diagnoses / Procedures Referred By Contamy t Referred To Contact Diagnoses Vitamin B 12 deficiency Procedures VITAMIN B12 INJ RANGE DOSE 1-1,000 MCG Kev Moser MD [address] [place] [phone] Phone: tel: fax: [facility] [address] [address] Phone: tel: fax: Referral ID Status Reason Start Date Expiration Date V isits Requested Visits Authorized [id number] Authorized 03/06/2022 03/30/2027 1 1 Encounter Details Date Type Department Care Team (Latest Contact Info) Description 09/11/2022 1:00 PM CDT Clinical Support [facility] [address] [address] Nurse, [facility] Vitamin B 12 deficiency (Primary Dx) Social [...] on file 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 No / Unsure 09/11/2022 12:18 PM CDT documented as of this encounter Progress Notes * Wen Hines RN - 09/11/2022 1:00 PM CDT Patient in for B12 injection. Tolerated well to right arm. Band-aid applied. No change in patient performance status since arrival to clinic. Patient discharged ambulatory. documented in this encounter Plan of Treatment Upcoming Encounters Date Type Department Care Team (Late st Contact Info) Description 04/07/2024 11:10 AM SALES SUPPORT SPECIALIST Lab [facility] [address] [address] Lab, [facility] 04/07/2024 11:15 AM SALES SUPPORT SPECIALIST Clinical Support [facility] [address] [address] Nurse, [place] 05/12/2024 11:00 AM SALES SUPPORT SPECIALIST Lab [facility] [address] [address] Lab, [facility] 05/12/2024 11:15 AM SALES SUPPORT SPECIALIST Office Visit [facility] [address] [phone] Kev Moser MD [address] [place] [phone] 05/12/2024 11:30 AM SALES SUPPORT SPECIALIST Clinical Support [facility] [place] [address] [place] [address] Nurse, [facility] documented as of this encounter Visit Diagnoses Diagnosis Vitamin B 12 deficiency- Primary Other B-complex deficiencies documented in this encounter Administered Medications Inactive Administered Medications - up to 3 most recent administrations Medication Order MAR Action Action Date Dose Rate Site cyanocobalamin (VITAMIN B-12) injection 1,000 mcg 1,000 mcg, Subcutaneous, ONCE, 1 dose, On Fri09/11/22 at 1300, To be given 1 week prior to Chemotherapy. Route IM or SUBQ.Indications:Vitam in B 12 deficiency Given 09/11/2022 12:25 PM CDT 1,000 mcg Right Lateral Upper Arm documented in this encounter Additional Health Concerns Assessment Noted Time PHQ-9 Depression Total Score: 0 11/25/19 21 11:34 AM CDT documented as of this encounter Care Teams Sock Liner Relationship Specialty Start Date End Date Scott Oneill MD PCP - General Internal Medicine 04/29/17 Kev Prince DO Gastroenterology 04/29/17 12/09/22 Tavo Mishra MD [address] [place] [address] [phone] Internal Medicine 04/29/17 Gilmer Barnard MD [address] [address] Consulting Physician Internal Medicine 08/28/17 4 Kev Moser MD [address] [place] [address] [phone] Consulting Physician Oncology 02/09/20 documented as of this encounter
--- OUTSIDE RECORDS SUMMARY | 2024-04-04 01:29 | XMS_ITS | Encounter Summary ---
Author Organization [facility] Address [address] [place] [address] Phone Care Team Providers Care Manager Graphic Name Role Phone Scott Oneill MD Primary Care Provider Kev Prince DO Unavailable [phone] Tavo Mishra MD Unavailable [phone] Gilmer Barnard MD Unavailable [phone] Kev Moser MD Unavailable [phone] Reason for Visit * Reason Comments ELIQUIS SAMPLES Encounter Details Date Type Department Care Team (Latest Contact Info) Description 08/29/2022 11:00 AM CDT Clinical Support [facility] [address] [address] Nurse, [facility] Other autoimmune hemolytic anemia (HCC) (Primary Dx) Social History Tobacco Use Types [...] on file 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 No / Unsure 07/31/2022 1:17 PM CDT documented as of this encounter Progress Notes * Afshan Harper, RN - 08/29/2022 11:00 AM CDT Eliquis 5mg sample dispense Take one tablet by mouth twice daily. 4 boxes given (56 tabs) LOT#:??[id number] EXP:??06/22 documented in this encounter Plan of Treatment Upcoming Encounters Date Type Department Care Team (Late st Contact Info) Description 04/07/2024 11:10 AM TRANSCRIBING OPERATOR HEAD Lab [facility] [address] [phone] Lab, [facility] 04/07/2024 11:15 AM TRANSCRIBING OPERATOR HEAD Clinical Support [facility] [address] [phone] Nurse, [facility] 05/12/2024 11:00 AM TRANSCRIBING OPERATOR HEAD Lab [facility] [address] [address] Lab, [facility] 05/12/2024 11:15 AM TRANSCRIBING OPERATOR HEAD Office Visit [facility] [address] [phone] Kev Moser MD [address] [place] [phone] 05/12/2024 11:30 AM TRANSCRIBING OPERATOR HEAD Clinical Support [facility] [address] [phone] Nurse, [facility] documented as of this encounter Visit Diagnoses Diagnosis Other autoimmune hemolytic anemia (HCC)- Primary documented in this encounter Additional Health Concerns Assessment Noted Time PHQ-9 Depression Total Score: 0 11/25/19 11:34 AM CDT documented as of this encounter Care Teams Manager Graphic Relationship Specialty Start Date End Date Scott Oneill MD PCP - General Internal Medicine 04/29/17 Kev Prince DO Gastroenterology 04/29/17 12/09/22 Tavo Mishra MD [address] [place] [address] Internal Medicine 04/29/17 Gilmer Barnard MD [address] [facility] [address] [place] [address] Consulting Physician Internal Medicine 08/28/17 4 Kev Moser MD [address] [place] [phone] Consulting Physician Oncology 02/09/20 documented as of this encounter
--- OUTSIDE RECORDS SUMMARY | 2024-04-04 01:29 | XMS_ITS | Encounter Summary ---
Author Organization [facility] Address [address] [place] [address] Phone Care Team Providers Care Tmr Teacher Name Role Phone Scott Oneill MD Primary Care Provider Kev Prince DO Unavailable [phone] Tavo Mishra MD Unavailable [phone] Gilmer Barnard MD Unavailable [phone] Kev Moser MD Unavailable [phone] Encounter Details Date Type Department Care Team (Late st Contact Info) Description 06/05/2022 1:30 PM FELT PAD CUTTER Office Visit [facility] [address] [phone] Cee Rios, REGIONAL TRAINER, COMBINER [address] [place] [phone] Other autoimmune hemolytic anemia (HCC) (Primary [...] on file Legal Sex Male 3:42 PM FELT PAD CUTTER Gender Identity Not on file Sexual Orientation Not on file COVID-19 Exposure Response Date Recorded In the last 10 days, have william u been in contact with someone who was confirmed or suspected to have Coronavirus/COVID-19? No / Unsure 06/05/2022 12:50 PM FELT PAD CUTTER documented as of this encounter Last Filed Vital Signs Vital Sign Reading Time Taken Comments Blood Pressure 120/70 06/05/2022 1:17 PM FELT PAD CUTTER Pulse 59 06/05/2022 1:17 PM FELT PAD CUTTER Temperature 36.5 ??C (97.7 ??F) 06/05/2022 1:17 PM CS T Respiratory Rate 18 06/05/2022 1:17 PM FELT PAD CUTTER Oxygen Saturation 97% 06/05/2022 1:17 PM FELT PAD CUTTER Inhaled Oxygen Concentration - - Weight 96.6 kg (213 lb) 06/05/2022 1:17 PM FELT PAD CUTTER Height 165.1 cm (5' 5 ) 06/05/2022 1:17 PM FELT PAD CUTTER Body Mass Index 35.45 06/05/2022 1:17 PM FELT PAD CUTTER documented in this encounter Progress Notes * Cee Dc APRN, CNP - 06/05/2022 1:30 PM CST Images from the original note were not included. Patient: Britton Nielsen Age: 67 y.o. : 1955 Encounter Dept: [facility] Encounter Date: 06/05/2022 Care Team: Current Providers PCP: Scott Oneill MD Care Team Provider: Kev Prince DO Care Team Provider: Tavo Mishra MD Care Team Provider: Gilmer Barnard MD Care Team Provider: Kev Moser MD Encounter Provider: Cee Dc APRN, CNP Referring Provider: not found Nurse Practitioner: Cee Dc APRN, CNP HISTORY OF PRESENT ILLNESS: Mr. Britton Nielsen returns to clinic for follow-up. Since his last visit, Britton states he has been doing well. He has no significant changes. He denies any fevers, chills, chest pain, abdominal pain, nausea, vomiting, diarrhea, constipation, or bleeding. Breathing remains stable. Patient continues on Eliquis 5 mg BID. DIAGNOSIS: 1. Glomerulonephritis, sclerosing (renal biopsy 04/01/17). 2. Significant anemia with bleeding ulcer, chronic kidney disease, and patient is on Cytoxan with iron deficiency. 3. Recurrent bleeding ulcers. 4. Patient had a positive BRIANNA at an outside hospital. 5. Bilateral pulmonary emboli, bilateral lower extremity DVT (10/2017). 6. Coronary artery disease with CABG 06/2020. PAST TREATMENT: 1. Gastroduodenal artery embolization at [facility] 05/2017. 2. Cytoxan 100 mg daily. 3. Bone marrow biopsy 11/03/17 with normocellular marrow and maturating trilineage hematopoiesis with minimal reticulin fibrosis. Normal karyotype and NGS study. 4. EPO 40,000 units q.4 to 8 weeks (poor response, stopped on 01/2019). 5. He is off Cytoxan and prednisone, in remission for his kidney disease. CURRENT TREATMENT: 1. On Eliquis b.i.d. Using samples. 2. Observation. TREATMENT GUIDELINES: Consistent with NCCN guidelines. 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 PLAN: 1. At this time, I discussed with Britton that clinically he is doing really well. 2. Laboratory evaluation from 06/05/22 showed a white blood cell count of 6.6, hemoglobin 12.2, hematocrit 37.0, and platelet count of 142. Creatinine 2.5. Total iron 75. Iron saturation 28%. Ferritin is still in process. 3. No need for IV iron as this time. 4. Continue Eliquis 5 mg BID. Patient came in on Friday for samples. 5. Continue following with Dr. Barnard in Nephrology. 6. I will have the patient return to clinic for follow-up with office visit and labs in three months. 7. I encouraged the patient to call with any questions, problems, or concerns that he may have. Dr. Moser was present in the clinic to answer any questions. TIME SPENT: REVIEW OF SYSTEMS: See HPI; [...] per Care Everywhere. Kev Moser MD, FACP Cee Dc, DNP, MARKETING ADMINISTRATIVE ASSISTANT- Vitals: Vitals: 06/05/22 1317 BP: 120/70 BP Location: Left Arm BP Position: Sitting BP Cuff Size: Regular Pulse: 59 Resp: 18 Temp: 97.7 ??F (36.5 ??C) TempSrc: Temporal SpO2: 97% Weight: 213 lb (96.6 kg) Height: 5' 5 (1.651 m) Body surface area is 2.1 meters squared. Body mass index is 35.45 kg/m??. Pain Score: 0 - No pain [...] Smoking status: Former Packs/day: 1.00 Years: 30.00 Pack years: 30.00 Types: Cigarettes Quit date: 05/23/2011 Years since quittin.0 ??? Smokeless tobacco: Never Vaping Use ??? [...] Current Medications: Outpatient Encounter Medications as of 06/05/2022 Medication Sig Dispense Refill ??? apixaban (Eliquis) [...] 30 Tab 0 ??? ergocalciferol (VITAMIN D) 38525 UNIT Capsule Take 50,000 Units by mouth once a week. ??? ferrous sulfate 325 (65 Fe) MG Tablet Take 1 Tab by mouth daily. ??? furosemide (LASIX) 40 MG Tablet Take 40 mg by mouth daily. ??? gabapentin (NEURONTIN) 300 MG Capsule gabapentin 300 mg capsule TAKE 1 CAPSULE BY MOUTH ONCE DAILY AT BEDTIME FOR 30 DAYS ??? labetalol (NORMODYNE) 200 MG Tablet Take 200 mg by mouth 2 times daily. ??? lisinopril (PRINIVIL, ZESTRIL) 20 MG Tablet ??? potassium chloride SA (KLORCON M) 20 MEQ Tablet Controlled Release Take 20 mEq by mouth 2 timesdaily. (Patient not taking: Reported on 03/02/2021) ??? sodium bicarbonate 650 MG Tablet Take 650 mg by mouth 2 times daily. ??? tadalafil (CIALIS) 20 MG Tablet TAKE 1 TABLET BY MOUTH ONCE DAILY NEEDED ??? traMADol (ULTRAM) 50 MG Tablet 0 No facility-administered encounter medications on file as of 06/05/2022. Labs: Lab on 06/05/2022 Component Date Value Ref Range Status ??? IRON 06/05/2022 75 50 - 212 ug/dL Final ??? UIBC 06/05/2022 192 155 - 355 ug/dL Final ??? TIBC 06/05/2022 267 261 - 478 ug/dl Final ??? % Saturation 06/05/2022 28 20 - 50 % Final ??? Glucose 06/05/2022 72 70 - 105 mg/dL Final ??? Blood Urea Nitrogen 06/05/2022 40 (H) 7 - 25 mg/dL Final ??? Creatinine 06/05/2022 2.5 (H) 0.7 - 1.3 mg/dL Final ??? Sodium 06/05/2022 140 136 - 145 mEq/L Final ??? Potassium 06/05/2022 4.7 3.5 - 5.1 mEq/L Final ??? Chloride 06/05/2022 105 98 - 107 mEq/L Final ??? Bicarbonate 06/05/2022 26 21 - 31 mEq/L Final ??? Total Bilirubin 06/05/2022 0.7 0.3 - 1.0 mg/dL Final ??? Alk. Phosphatase 06/05/2022 105 (H) 34 - 104 U/L Final ??? Aspartate Aminotransferase 06/05/2022 13 13 - 39 U/L Final ??? Alanine Aminotransferase 06/05/2022 17 7 - 52 U/L Final ??? Total Protein 06/05/2022 7.1 6.4 - 8.9 g/dL Final ??? Albumin 06/05/2022 4.4 3.5 - 5.7 g/dL Final ??? Calcium 06/05/2022 9.0 8.6 - 10.3 mg/dL Final ??? Anion Gap 06/05/2022 13.7 7.0 - 15.0 mEq/L Final ??? Globulin 06/05/2022 2.7 2.0 - 3.5 g/dL Final ? ? EGFR 06/05/2022 27 (L) >60 ml/min/1.73m2 Final Comment: This eGFR is calculated using 2020 CKD-EPI Creatinine equation without race modifier based on the NKF-ASN task force recommendations ??? WBC 06/05/2022 6.6 4.0 - 10.0 10*3/uL Final ??? HGB 06/05/2022 12.2 (L) 13.7 - 17.5 g/dL Final ??? HCT 06/05/2022 37.0 (L) 40.1 - 51.0 % Final ??? PLT 06/05/2022 142 (L) 163 - 369 10*3/uL Final ??? MPV 06/05/2022 9.5 9.4 - 12.4 fL Final ??? RBC 06/05/2022 4.09 (L) 4.63 - 6.08 10*6/uL Final ??? MCV 06/05/2022 91 79 - 95 fL Final ??? MCH 06/05/2022 29.8 25.6 - 32.2 pg Final ??? MCHC 06/05/2022 33.0 32.2 - 36.5 g/dL Final ??? RDW 06/05/2022 15.2 (H) 11.6 - 14.4 % Final ??? Absolute Neutrophil Count 06/05/2022 5,044 cells/uL Final ??? Absolute Seg Count 06/05/2022 5,044 1,440 - 6,600 cells/uL Final ??? Absolute Lymph Count 06/05/2022 852 760 - 4,000 cells/uL Final ??? Absolute [place] Count 06/05/2022 459 160 - 1,200 cells/uL Final ??? Absolute Eos Count 06/05/2022 197 0 - 300 cells/uL Final ??? Segmented Neutrophils 06/05/2022 77 (H) 36 - 66 % Final ??? Lymphocytes 06/05/2022 13 (L) 19 - 40 % Final ??? Monocytes 06/05/2022 7 4 - 12 % Final ??? Eosinophils 06/05/2022 3 0 - 3 % Final ??? WBC Estimate 06/05/2022 Normal Final ??? Platelet Estimate 06/05/2022 Low Final ??? RBC Morphology 06/05/2022 Abnormal Final ??? Anisocytosis 06/05/2022 1+ Final Cosigned by Kev Moser MD at 06/05/2022 2:53 PM FELT PAD CUTTER PAD CUTTER PAD CUTTER documented in this encounter Plan of Treatment Upcoming Encounters Date Type Department Care Team (Late st Contact Info) Description 04/07/2024 11:10 AM FELT PAD CUTTER Lab [facility] [address] [phone] Lab, [facility] 04/07/2024 11:15 AM FELT PAD CUTTER Clinical Support [facility] [address] [phone] Nurse, [facility] 05/12/2024 11:00 AM FELT PAD CUTTER Lab [facility] [address] [phone] Lab, [facility] 05/12/2024 11:15 AM FELT PAD CUTTER Office Visit [facility] [address] [phone] Kev Moser MD [address] [place] [phone] 05/12/2024 11:30 AM FELT PAD CUTTER Clinical Support [facility] [address] [place] [address] Nurse, [facility] documented as of this encounter Results * (ABNORMAL) IRON W/ IRON BINDING [place]ITY [place] (09/04/2022 10:51 AM CDT) IRON 78 50 - 212 ug/dL [facility] UIBC 174 155 - 355 ug/dL [facility] TIBC 252(L) 261 - 478 ug/dl [facility] % Saturation 31 20 - 50 % [facility] 09/04/2022 10:5 1 AM CDT Narrative [facility] - 09/04/2022 12:00 PM CDT Release to patient->Immediate Cee Rios APRN, COMBINER LAB SEND OUTS F inal Result [facility] [address] [place] [address], * (ABNORMAL) FERRITIN (09/04/2022 10:51 AM CDT) Ferritin 529(H) 24 - 336 ng/mL [facility] Blood 09/04/2022 10:5 1 AM CDT [facility] - 09/05/2022 2:46 PM CDT Release to patient->Immediate Cee Rios APRN, COMBINER CHEMISTRY ORDERAB LES Final Result [facility] [place] [address], * (ABNORMAL) CMP (COMPREHENSIVE METABOLIC PANEL) (09/04/2022 10:51 AM CDT) Glucose 95 70 - 105 mg/dL [facility] Blood Urea Nitrogen 29(H) 7 - 25 mg/dL [facility] Creatinine 2.0(H) 0.7 - 1.3 mg/dL [facility] Sodium 138 136 - 145 mEq/L [facility] Potassium 4.9 3.5 - 5.1 mEq/L [facility] Chloride 106 98 - 107 mEq/L [facility] Bicarbonate 24 21 - 31 mEq/L [facility] Total Bilirubin 0.8 0.3 - 1.0 mg/dL [facility] Alk. Phosphatase 91 34 - 104 U/L [facility] Aspartate Aminotransferase 15 13 - 39 U/L [facility] Alanine Aminotransferase 14 7 - 52 U/L [facility] Total Protein 6.8 6.4 - 8.9 g/dL [facility] Albumin 4.3 3.5 - 5.7 g/dL [facility] Calcium 9.0 8.6 - 10.3 mg/dL [facility] Anion Gap 12.9 7.0 - 15.0 mEq/L [facility] Globulin 2.5 2.0 - 3.5 g/dL [facility] EGFR 36(L) >60 ml/min/1. 73m2 [facility] Comment: This eGFR is calculated using 2020 CKD-EPI Creatinine equation without race modifier based on the NKF-ASN task force recommendations Blood 09/04/2022 10:5 1 AM CDT Narrative [facility] - 09/04/2022 12:00 PM CDT Release to patient->Immediate IS THE PATIENT REQUIRED TO BE FASTING FOR 8 HOURS?->No Cee Rios REGIONAL TRAINER, COMBINER CHEMISTRY ORDERAB LES Final Result [facility] [address] [place] [address], [place] [phone] * (ABNORMAL) COMPLETE BLOOD COUNT (CBC) WITH DIFF (09/04/2022 10:51 AM CDT) WBC 6.3 4.0 - 10.0 10*3/uL [facility] HGB 12.1(L) 13.7 - 17.5 g/dL [facility] HCT 37.5(L) 40.1 - 51.0 % [facility] PLT 141(L) 163 - 369 10*3/uL [facility] MPV 9.3(L) 9.4 - 12.4 fL [facility] RBC 4.00(L) 4.63 - 6.08 10*6/uL [facility] MCV 94 79 - 95 fL [facility] MCH 30.3 25.6 - 32.2 pg [facility] MCHC 32.3 32.2 - 36.5 g/dL [facility] RDW 14.2 11.6 - 14.4 % [facility] Absolute Neutrophil Count 4,640 cells/uL [facility] Absolute Seg Count 4,640 1,440 - 6,600 cells/uL [facility] Absolute Lymph Count 941 760 - 4,000 cells/uL [facility] Absolute [place] Count 627 160 - 1,200 cells/uL [facility] Absolute Eos Count 63 0 - 300 cells/uL [facility] Segmented Neutrophils 74(H) 36 - 66 % [facility] Lymphocytes 15(L) 19 - 40 % [facility] Monocytes 10 4 - 12 % [facility] Eosinophils 1 0 - 3 % [facility] WBC Estimate Normal [facility] Platelet Estimate Low [facility] RBC Morphology Normal [facility] Blood 09/04/2022 10:5 1 AM CDT Narrative [facility] - 09/04/2022 3:06 PM CDT Release to patient->Immediate us Cee Rios REGIONAL TRAINER, COMBINER HEMATOLOGY ORDERA BLES Final Result [facility] [address] [address], documented in this encounter Visit Diagnoses Diagnosis 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 Vitamin B 12 deficiency Other B-complex deficiencies Stage 3a chronic kidney disease (HCC) 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 Vitamin B 12 deficiency Other B-complex deficiencies Stage 3a chronic kidney disease (HCC) documented in this encounter Additional Health Concerns Assessment Noted Time PHQ-9 Depression Total Score: 0 11/25/19 21 11:34 AM CDT documented as of this encounter Care Teams Tmr Teacher Relationship Specialty Start Date End Date Scott Oneill MD PCP - General Internal Medicine 04/29/17 Kev Prince DO Gastroenterology 04/29/17 12/09/22 Tavo Mishra MD [address] [address] Internal Medicine 04/29/17 Gilmer Barnard MD [address] [facility] [address] [place] [address] Consulting Physician Internal Medicine 08/28/17 4 Kev Moser MD [address] [place] [phone] Consulting Physician Oncology 02/09/20 documented as of this encounter
--- OUTSIDE RECORDS SUMMARY | 2024-04-04 01:29 | XMS_ITS | Encounter Summary ---
Author Organization [facility] Care Team Providers Care Vice President Biostatistics Name Role Phone Scott Oneill MD Primary Care Provider [phone] Kev Prince DO Unavailable [phone] Tavo Mishra MD Unavailable [phone] Gilmer Barnard MD Unavailable [phone] Kev Moser MD Unavailable [phone] Encounter Details Date Type Department Care Team (Latest Contact Info) Description 09/11/2022 Travel Social History Tobacco Use Types Packs/Day [...] on file Legal Sex Male 3:42 PM CREW BOSS Gender Identity Not on file Sexual Orientation [...] st Contact Info) Description 04/07/2024 11:10 AM CREW BOSS Lab [facility] [address] [address] Lab, [facility] 04/07/2024 11:15 AM CREW BOSS Clinical Support [facility] [address] [address] Nurse, [facility] 05/12/2024 11:00 AM CREW BOSS Lab [facility] [address] [address] Lab, [facility] 05/12/2024 11:15 AM CREW BOSS Office Visit [facility] [address] [phone] Kev Moser MD [address] [place] [phone] 05/12/2024 11:30 AM CREW BOSS Clinical Support [facility] [address] [address] Nurse, [facility] documented as of this encounter Visit Diagnoses Not on filedocumented in this encounter Additional Health Concerns Assessment Noted Time PHQ-9 Depression Total Score: 0 11/25/19 21 11:34 AM CDT documented as of this encounter Care Teams Vice President Biostatistics Relationship Specialty Start Date End Date Scott Oneill MD PCP - General Internal Medicine 04/29/17 Kev Prince DO Gastroenterology 04/29/17 12/09/22 Tavo Mishra MD [address] [facility] [address] [place] [phone] Internal Medicine 04/29/17 Gilmer Barnard MD [address] [phone] Consulting Physician Internal Medicine 08/28/17 4 Kev Moser MD [address] [place] [address] Consulting Physician Oncology 02/09/20 documented as of this encounter
--- OUTSIDE RECORDS SUMMARY | 2024-04-04 01:29 | XMS_ITS | Encounter Summary ---
Author Organization [email or web address] Care Team Providers Care Correspondence Review Clerk Name Role Phone Scott Oneill MD Primary Care Provider [phone] Kev Prince DO Unavailable [phone] Tavo Mishra MD Unavailable [phone] Gilmer Barnard MD Unavailable [phone] Kev Moser MD Unavailable [phone] Encounter Details Date Type Department Care Team (Latest Contact Info) Description 09/04/2022 Travel Social History Tobacco Use Types Packs/Day [...] file Legal Sex Male 3:42 PM MANUFACTURING LEAD Gender Identity Not on file Sexual Orientation [...] Contact Info) Description 04/07/2024 11:10 AM MANUFACTURING LEAD Lab [facility] [address] [phone] Lab, [facility] 04/07/2024 11:15 AM MANUFACTURING LEAD Clinical Support [facility] [address] [phone] Nurse, [facility] 05/12/2024 11:00 AM MANUFACTURING LEAD Lab [facility] [address] [phone] Lab, [facility] 05/12/2024 11:15 AM MANUFACTURING LEAD Office Visit [facility] [address] [phone] Kev Moser MD [address] [place] [phone] 05/12/2024 11:30 AM MANUFACTURING LEAD Clinical Support [facility] [address] [phone] Nurse, [facility] documented as of this encounter Visit Diagnoses Not on filedocumented in this encounter Additional Health Concerns Assessment Noted Time PHQ-9 Depression Total Score: 0 11/25/19 21 11:34 AM CDT documented as of this encounter Care Teams Correspondence Review Clerk Relationship Specialty Start Date End Date Scott Oneill MD PCP - General Internal Medicine 04/29/17 Kev Prince DO Gastroenterology 04/29/17 12/09/22 Tavo Mishra MD [address] [facility] [address] [place] [phone] Internal Medicine 04/29/17 Gilmer Barnard MD [address] [facility] [address] [place] [phone] Consulting Physician Internal Medicine 08/28/17 4 Kev Moser MD [address] [place] [phone] Consulting Physician Oncology 02/09/20 documented as of this encounter
--- OUTSIDE RECORDS SUMMARY | 2024-04-04 01:29 | XMS_ITS | Encounter Summary ---
Author Organization [facility] Address [address] [place] [address] Phone Care Team Providers Care Track Manager Name Role Phone Scott Oneill MD Primary Care Provider Kev Prince DO Unavailable [phone] Tavo Mishra MD Unavailable [phone] Gilmer Barnard MD Unavailable [phone] Kev Moser MD Unavailable [phone] Encounter Details Date Type Department Care Team (Late st Contact Info) Description 06/05/2022 1:15 PM CODING SUPPORT SPECIALIST Lab [facility] [address] [phone] Lab, Cc [facility] Iron deficiency anemia due to sideropenic dysphagia [...] on file Legal Sex Male 3:42 PM CODING SUPPORT SPECIALIST Gender Identity Not on file Sexual Orientation Not on file COVID-19 Exposure Response Date Recorded In the last 10 days, have yo u been in contact with someone who was confirmed or suspected to have Coronavirus/COVID-19? No / Unsure 06/05/2022 12:50 PM CODING SUPPORT SPECIALIST documented as of this encounter Plan of Treatment Upcoming Encounters Date Type Department Care Team (Late st Contact Info) Description 04/07/2024 11:10 AM CODING SUPPORT SPECIALIST Lab [facility] [address] [phone] Lab, [facility] 04/07/2024 11:15 AM CODING SUPPORT SPECIALIST Clinical Support [facility] [address] [phone] Nurse, [facility] 05/12/2024 11:00 AM CODING SUPPORT SPECIALIST Lab [facility] [address] [phone] Lab, [facility] 05/12/2024 11:15 AM CODING SUPPORT SPECIALIST Office Visit [facility] [address] [phone] Kev Moser MD [address] [place] [phone] 05/12/2024 11:30 AM CODING SUPPORT SPECIALIST Clinical Support [facility] [address] [phone] Nurse, [facility] documented as of this encounter Procedures Procedure Name Priority Date/Time Associated Diagnosis Comments IRON W/ IRON BINDING CAPACITY [place] Routine 06/05/2022 12:53 PM CODING SUPPORT SPECIALIST Iron deficiency anemia due to sideropenic dysphagia FERRITIN Routine 06/05/2022 12:53 PM CODING SUPPORT SPECIALIST Iron deficiency anemia due to sideropenic dysphagia CMP (COMPREHENSIVE METABOLIC PANEL) Routine 06/05/2022 12:53 PM CODING SUPPORT SPECIALIST Iron deficiency anemia due to sideropenic dysphagia COMPLETE BLOOD COUNT (CBC) WITH DIFF Routine 06/05/2022 12:53 PM CODING SUPPORT SPECIALIST Iron deficiency anemia due to sideropenic dysphagia documented in this encounter Results * (ABNORMAL) COMPLETE BLOOD COUNT (CBC) WITH DIFF (06/05/2022 12:53 PM CODING SUPPORT SPECIALIST) WBC 6.6 4.0 - 10.0 10*3/uL [facility] HGB 12.2(L) 13.7 - 17.5 g/dL [facility] HCT 37.0(L) 40.1 - 51.0 % [facility] PLT 142(L) 163 - 369 10*3/uL [facility] MPV 9.5 9.4 - 12.4 fL [facility] RBC 4.09(L) 4.63 - 6.08 10*6/uL [facility] MCV 91 79 - 95 fL [facility] MCH 29.8 25.6 - 32.2 pg [facility] MCHC 33.0 32.2 - 36.5 g/dL [facility] RDW 15.2(H) 11.6 - 14.4 % [facility] Absolute Neutrophil Count 5,044 cells/uL [facility] Absolute Seg Count 5,044 1,440 - 6,600 cells/uL [facility] Absolute Lymph Count 852 760 - 4,000 cells/uL [facility] Absolute [place] Count 459 160 - 1,200 cells/uL [facility] Absolute Eos Count 197 0 - 300 cells/uL [facility] Segmented Neutrophils 77(H) 36 - 66 % [facility] Lymphocytes 13(L) 19 - 40 % [facility] [place] Monocytes 7 4 - 12 % [facility] Eosinophils 3 0 - 3 % [facility] WBC Estimate Normal [facility] Platelet Estimate Low [facility] RBC Morphology Abnormal [facility] Anisocytosis 1+ [facility] Blood 06/05/2022 12:5 3 PM CODING SUPPORT SPECIALIST Narrative [facility] - 06/05/2022 2:37 PM CODING SUPPORT SPECIALIST Release to patient->Immediate us Sindi Qiu DEVELOPER SUPPORT ENGINEER, LOCAL FLATBED DRIVER HEMATOLOGY ORDERABLES Final Result [facility] [address] [place] [address], * (ABNORMAL) CMP (COMPREHENSIVE METABOLIC PANEL) (06/05/2022 12:53 PM CODING SUPPORT SPECIALIST) Glucose 72 70 - 105 mg/dL [facility] Blood Urea Nitrogen 40(H) 7 - 25 mg/dL [facility] Creatinine 2.5(H) 0.7 - 1.3 mg/dL [facility] Sodium 140 136 - 145 mEq/L [facility] Potassium 4.7 3.5 - 5.1 mEq/L [facility] Chloride 105 98 - 107 mEq/L [facility] Bicarbonate 26 21 - 31 mEq/L [facility] Total Bilirubin 0.7 0.3 - 1.0 mg/dL [facility] Alk. Phosphatase 105(H) 34 - 104 U/L [facility] Aspartate Aminotransferase 13 13 - 39 U/L [facility] Alanine Aminotransferase 17 7 - 52 U/L [facility] Total Protein 7.1 6.4 - 8.9 g/dL [facility] Albumin 4.4 3.5 - 5.7 g/dL [facility] Calcium 9.0 8.6 - 10.3 mg/dL [facility] Anion Gap 13.7 7.0 - 15.0 mEq/L [facility] Globulin 2.7 2.0 - 3.5 g/dL [facility] EGFR 27(L) >60 ml/min/1. 73m2 [facility] Comment: This eGFR is calculated using 2020 CKD-EPI Creatinine equation without race modifier based on the NKF-ASN task force recommendations Blood 06/05/2022 12:5 3 PM CODING SUPPORT SPECIALIST Narrative [facility] - 06/05/2022 1:56 PM CODING SUPPORT SPECIALIST Release to patient->Immediate IS THE PATIENT REQUIRED TO BE FASTING FOR 8 HOURS?->No Sindi Qiu APRN, LOCAL FLATBED DRIVER CHEMISTRY ORDERABLES Final Result [facility] [address] [place] [address], [place] [phone] * (ABNORMAL) FERRITIN (06/05/2022 12:53 PM CODING SUPPORT SPECIALIST) Ferritin 517(H) 24 - 336 ng/mL [facility] Blood 06/05/2022 12:5 3 PM CODING SUPPORT SPECIALIST Narrative [facility] TEST [facility] - 06/06/2022 2:11 PM CODING SUPPORT SPECIALIST Release to patient->Immediate Sindi Qiu APRN, LOCAL FLATBED DRIVER CHEMISTRY ORDERABLES Final Result [facility] [address] [place] [address], [place] [phone] * IRON W/ IRON BINDING CAPACITY [place] (06/05/2022 12:53 PM CODING SUPPORT SPECIALIST) IRON 75 50 - 212 ug/dL [facility] UIBC 192 155 - 355 ug/dL [facility] TIBC 267 261 - 478 ug/dl [facility] % Saturation 28 20 - 50 % [facility] 06/05/2022 12:5 3 PM CODING SUPPORT SPECIALIST Narrative [facility] - 06/05/2022 1:56 PM CODING SUPPORT SPECIALIST Release to patient->Immediate Sindi Qiu APRN, LOCAL FLATBED DRIVER LAB SEND OUTS Final Result Performing Organization Address City/[facility]/ZIP Co de Phone Number [facility] [address] [place] [address], [place] [phone] documented in this encounter Visit Diagnoses Diagnosis Iron deficiency anemia due to sideropenic dysphagia documented in this encounter Additional Health Concerns Assessment Noted Time PHQ-9 Depression Total Score: 0 11/25/19 21 11:34 AM CDT documented as of this encounter Care Teams Track Manager Relationship Specialty Start Date End Date Scott Oneill MD PCP - General Internal Medicine 04/29/17 Kev Prince DO Gastroenterology 04/29/17 12/09/22 Tavo Mishra MD [address] [facility] [address] [place] [address] [phone] Internal Medicine 04/29/17 Gilmer Barnard MD [address] [place] [address] [phone] Consulting Physician Internal Medicine 08/28/17 4 Kev Moser MD [address] [place] [phone] Consulting Physician Oncology 02/09/20 documented as of this encounter
--- OUTSIDE RECORDS SUMMARY | 2024-04-04 01:29 | XMS_ITS | Encounter Summary ---
Author Organization [employer] Care Team Providers Care [employer] Law Clerk Name Role Phone Scott Oneill MD Primary Care Provider [phone] Kev Prince DO Unavailable [phone] Tavo Mishra MD Unavailable [phone] Gilmer Barnard MD Unavailable [phone] Kev Moser MD Unavailable [phone] Encounter Details Date Type Department Care Team (Latest Contact Info) Description 06/03/2022 Travel Social History Tobacco Use Types Packs/Day [...] on file Legal Sex Male 3:42 PM PSYCHOMETRIC EXAMINER Gender Identity Not on file Sexual Orientation Not on file COVID-19 Exposure Response Date Recorded In the last 10 days, have yo u been in contact with someone who was confirmed or suspected to have Coronavirus/COVID-19? No / Unsure 06/03/2022 1:06 PM PSYCHOMETRIC EXAMINER documented as of this encounter Plan of Treatment Upcoming Encounters Date Type Department Care Team (Late st Contact Info) Description 04/07/2024 11:10 AM PSYCHOMETRIC EXAMINER Lab [facility] [address] [phone] Lab, [facility] 04/07/2024 11:15 AM PSYCHOMETRIC EXAMINER Clinical Support [facility] [address] [phone] Nurse, [facility] 05/12/2024 11:00 AM PSYCHOMETRIC EXAMINER Lab [facility] [address] [phone] Lab, [facility] 05/12/2024 11:15 AM PSYCHOMETRIC EXAMINER Office Visit [facility] [address] [phone] Kev Moser MD [address] [place] [phone] 05/12/2024 11:30 AM PSYCHOMETRIC EXAMINER Clinical Support [facility] [address] [phone] Nurse, [facility] documented as of this encounter Visit Diagnoses Not on filedocumented in this encounter Additional Health Concerns Assessment Noted Time PHQ-9 Depression Total Score: 0 11/25/19 21 11:34 AM CDT documented as of this encounter Care Teams [employer] Law Clerk Relationship Specialty Start Date End Date Scott Oneill MD PCP - General Internal Medicine 04/29/17 Kev Prince DO Gastroenterology 04/29/17 12/09/22 Tavo Mishra MD [address] [facility] [address] [place] [address] [phone] Internal Medicine 04/29/17 Gilmer Barnard MD [address] [phone] Consulting Physician Internal Medicine 08/28/17 4 Kev Moser MD [address] [place] [phone] Consulting Physician Oncology 02/09/20 documented as of this encounter
--- OUTSIDE RECORDS SUMMARY | 2024-04-04 01:29 | XMS_ITS | Encounter Summary ---
Author Organization [facility] Address [address] [place] [address] Phone Care Team Providers Care [facility] Name Role Phone Scott Oneill MD Primary Care Provider Kev Prince DO Unavailable [phone] Tavo Mishra MD Unavailable [phone] Gilmer Barnard MD Unavailable [phone] Kev Moser MD Unavailable [phone] Encounter Details Date Type Department Care Team (Late st Contact Info) Description 03/07/2022 Telephone [facility] [place] [address] [place] [address] Kev Moser MD [address] [place] [phone] Social History Tobacco Use Types Packs/Day [...] on file Legal Sex Male 3:42 PM CHISEL GRINDER Gender Identity Not on file Sexual Orientation Not on file COVID-19 Exposure Response Date Recorded In the last 10 days, have yo u been in contact with someone who was confirmed or suspected to have Coronavirus/COVID-19? No / Unsure 03/07/2022 11:10 AM CHISEL GRINDER documented as of this encounter Miscellaneous Notes * Telephone Encounter - Zahida Montes RN - 03/07/2022 2:22 PM CST Spoke to Jocelyn at Dr. Yeboah office. She states she will ask property utilization officer if [facility] has called them and she will share information with Dr. Barnard. EL GRINDER * Telephone Encounter - Zahida Montes RN - 03/07/2022 1:33 PM CST Pt in office today for iron. Iron held due to B/P 180/90 repeat after 30 minutes 180/84. Dr. Barnard's office has been adjusting medication. Pt felt very fatigued and not good today. LVM for Dr. Barnard's office to call back. Dr. Barnard needs to be informed of elevated B/P. EL GRINDER documented in this encounter Plan of Treatment Upcoming Encounters Date Type Department Care Team (Late st Contact Info) Description 04/07/2024 11:10 AM CHISEL GRINDER Lab [facility] [address] [phone] Lab, [facility]c [facility] 04/07/2024 11:15 AM CHISEL GRINDER Clinical Support [facility] [address] [phone] Nurse, [facility] 05/12/2024 11:00 AM CHISEL GRINDER Lab [facility] [address] [phone] Lab, [facility] 05/12/2024 11:15 AM CHISEL GRINDER Office Visit [facility] [address] [phone] Kev Moser MD [address] [place] [phone] 05/12/2024 11:30 AM CHISEL GRINDER Clinical Support [facility] [place] [address] [place] [address] Nurse, [facility] documented as of this encounter Visit Diagnoses Not on filedocumented in this encounter Additional Health Concerns Assessment Noted Time PHQ-9 Depression Total Score: 0 11/25/19 21 11:34 AM CDT documented as of this encounter Care Teams [facility] Relationship Specialty Start Date End Date Scott Oneill MD PCP - General Internal Medicine 04/29/17 Kev Prince DO Gastroenterology 04/29/17 12/09/22 Tavo Mishra MD [address] [place] [address] [phone] Internal Medicine 04/29/17 Gilmer Barnard MD [address] [place] [address] [phone] Consulting Physician Internal Medicine 08/28/17 4 Kev Moser MD [address] [place] [phone] Consulting Physician Oncology 02/09/20 documented as of this encounter
--- OUTSIDE RECORDS SUMMARY | 2024-04-04 01:29 | XMS_ITS | Encounter Summary ---
Author Organization [facility] Address [address] [place] [address] Phone Care Team Providers Care Revenue Manager Name Role Phone Scott Oneill MD Primary Care Provider Kev Prince DO Unavailable [phone] Tavo Mishra MD Unavailable [phone] Gilmer Barnard MD Unavailable [phone] Kev Moser MD Unavailable [phone] Reason for Visit * Reason Comments Other Eliquis 5mg sample d ispense Encounter Details Date Type Department Care Team (Latest Contact Info) Description 06/03/2022 2:30 PM CHIEF OF INTERNAL MEDICINE Clinical Support [facility] [address] [phone] Nurse, [facility] Other autoimmune hemolytic anemia (HCC) [...] on file Legal Sex Male 3:42 PM CHIEF OF INTERNAL MEDICINE Gender Identity Not on file Sexual Orientation Not on file COVID-19 Exposure Response Date Recorded In the last 10 days, have yo u been in contact with someone who was confirmed or suspected to have Coronavirus/COVID-19? No / Unsure 06/03/2022 1:06 PM CHIEF OF INTERNAL MEDICINE documented as of this encounter Progress Notes * Fritz Pena, RN - 06/03/2022 2:30 PM CST Eliquis 5mg sample dispense Take one tablet by mouth twice daily. 4 boxes given (56 tabs) LOT#:??[id number] EXP:??06/22 F OF INTERNAL MEDICINE documented in this encounter Plan of Treatment Upcoming Encounters Date Type Department Care Team (Late st Contact Info) Description 04/07/2024 11:10 AM CHIEF OF INTERNAL MEDICINE Lab [facility] [address] [address] Lab, [facility] 04/07/2024 11:15 AM CHIEF OF INTERNAL MEDICINE Clinical Support [facility] [address] [phone] Nurse, [facility] 05/12/2024 11:00 AM CHIEF OF INTERNAL MEDICINE Lab [facility] [address] [address] Lab, [facility] 05/12/2024 11:15 AM CHIEF OF INTERNAL MEDICINE Office Visit [facility] [address] [phone] Kev Moser MD [address] [place] [phone] 05/12/2024 11:30 AM CHIEF OF INTERNAL MEDICINE Clinical Support [facility] [address] [phone] Nurse, [facility] documented as of this encounter Visit Diagnoses Diagnosis Other autoimmune hemolytic anemia (HCC) documented in this encounter Additional Health Concerns Assessment Noted Time PHQ-9 Depression Total Score: 0 11/25/19 21 11:34 AM CDT documented as of this encounter Care Teams Revenue Manager Relationship Specialty Start Date End Date Scott Oneill MD PCP - General Internal Medicine 04/29/17 Kev Prince DO Gastroenterology 04/29/17 12/09/22 Tavo Mishra MD [address] [facility] [address] [place] [address] [phone] Internal Medicine 04/29/17 Gilmer Barnard MD [address] [facility] [address] [place] [phone] Consulting Physician Internal Medicine 08/28/17 4 Kev Moser MD [address] [place] [phone] Consulting Physician Oncology 02/09/20 documented as of this encounter
--- OUTSIDE RECORDS SUMMARY | 2024-04-04 01:29 | XMS_ITS | Encounter Summary ---
Author Organization [facility] Address [address] [place] [address] Phone Care Team Providers Care Rocket Motor Mechanic Name Role Phone Scott Oneill MD Primary Care Provider [phone] Kev Prince DO Unavailable [phone] Tavo Mishra MD Unavailable [phone] Gilmer Barnard MD Unavailable [phone] Kev Moser MD Unavailable [phone] Reason for Visit * Reason Comments Therapeutic Injection * Episode Based Medications (Routine) - Authorized Specialty Diagnoses / Procedures Referred By Contamy t Referred To Contact Diagnoses Vitamin B 12 deficiency Procedures VITAMIN B12 INJ RANGE DOSE 1-1,000 MCG Kev Moser MD [address] [place] [phone] Phone: tel: fax: [facility] [address] [address] Phone: tel: fax: Referral ID Status Reason Start Date Expiration Date V isits Requested Visits Authorized [id number] Authorized 03/06/2022 03/30/2027 1 1 Encounter Details Date Type Department Care Team (Latest Contact Info) Description 11/08/2022 12:15 PM CDT Clinical Support [facility] [address] [address] [facility] Vitamin B 12 deficiency (Primary Dx); [...] on file Legal Sex Male 3:42 PM MDM DEVELOPER Gender Identity Not on file Sexual Orientation Not on file COVID-19 Exposure Response Date Recorded In the last 10 days, have yo u been in contact with someone who was confirmed or suspected to have Coronavirus/COVID-19? No / Unsure 11/08/2022 11:27 AM CDT documented as of this encounter Progress Notes * Fritz Pena RN - 11/08/2022 12:15 PM CDT Eliquis 5mg sample dispense Take one tablet by mouth twice daily. 4 boxes given (56 tabs) LOT#:??[id number] EXP:??07/23 * Zahida Montes RN - 11/08/2022 12:15 PM CDT B 12 given as ordered and band aid to site. Tolerated well. Left ambulatory unaccompanied. Performance status unchanged since arrival to clinic. documented in this encounter Plan of Treatment Upcoming Encounters Date Type Department Care Team (Late st Contact Info) Description 04/07/2024 11:10 AM MDM DEVELOPER Lab [facility] [address] [phone] Lab, [facility] 04/07/2024 11:15 AM MDM DEVELOPER Clinical Support [facility] [address] [phone] [facility] 05/12/2024 11:00 AM MDM DEVELOPER Lab [facility] [address] [phone] Lab, [facility] 05/12/2024 11:15 AM MDM DEVELOPER Office Visit [facility] [address] [phone] Kev Moser MD [address] [place] [phone] 05/12/2024 11:30 AM MDM DEVELOPER Clinical Support [facility] [address] [phone] Nurse, [facility] documented as of this encounter Visit Diagnoses Diagnosis Vitamin B 12 deficiency- Primary Other B-complex deficiencies Other autoimmune hemolytic anemia (HCC) documented in this encounter Administered Medications Inactive Administered Medications - up to 3 most recent administrations Medication Order MAR Action Action Date Dose Rate Site cyanocobalamin (VITAMIN B-12) injection 1,000 mcg 1,000 mcg, Subcutaneous, ONCE, 1 dose, On Fri11/08/22 at 1200, To be given 1 week prior to Chemotherapy. Route IM or SUBQ.Indications:Vitam in B 12 deficiency Given 11/08/2022 11:36 AM CDT 1,000 mcg Right Lateral Upper Arm documented in this encounter Additional Health Concerns Assessment Noted Time PHQ-9 Depression Total Score: 0 11/25/19 21 11:34 AM CDT documented as of this encounter Care Teams Rocket Motor Mechanic Relationship Specialty Start Date End Date Scott Oneill MD PCP - General Internal Medicine 04/29/17 Kev Prince DO Gastroenterology 04/29/17 12/09/22 Tavo Mishra MD [address] [place] [phone] Internal Medicine 04/29/17 Gilmer Barnard MD [address] [place] [phone] Consulting Physician Internal Medicine 08/28/17 4 Kev Moser MD [address] [place] [phone] Consulting Physician Oncology 02/09/20 documented as of this encounter
--- OUTSIDE RECORDS SUMMARY | 2024-04-04 01:29 | XMS_ITS | Encounter Summary ---
Author Organization [facility] Address [address] [place] [address] Phone Care Team Providers Care Window Dresser Name Role Phone Scott Oneill MD Primary Care Provider [phone] Kev Prince DO Unavailable [phone] Tavo Mishra MD Unavailable [phone] Gilmer Barnard MD Unavailable [phone] Kev Moser MD Unavailable [phone] Reason for Visit * Reason Comments Other Eliquis sample dispe nse Encounter Details Date Type Department Care Team (Latest Contact Info) Description 05/06/2022 12:30 PM NET FISHER Clinical Support [facility] [address] [address] Nurse, [facility] Other autoimmune hemolytic anemia (HCC) Social [...] on file Legal Sex Male 3:42 PM NET FISHER Gender Identity Not on file Sexual Orientation Not on file COVID-19 Exposure Response Date Recorded In the last 10 days, have yo u been in contact with someone who was confirmed or suspected to have Coronavirus/COVID-19? No / Unsure 05/06/2022 11:15 AM NET FISHER documented as of this encounter Progress Notes * Fritz Pena, RN - 05/06/2022 12:30 PM CST ??Eliquis 5mg sample dispense Take one tablet by mouth twice daily. 4 boxes given (56 tabs) LOT#: [id number] EXP:??06/22 FISHER documented in this encounter Plan of Treatment Upcoming Encounters Date Type Department Care Team (Late st Contact Info) Description 04/07/2024 11:10 AM NET FISHER Lab [facility] [address] [address] Lab, [facility] 04/07/2024 11:15 AM NET FISHER Clinical Support [facility] [address] [address] Nurse, [facility] 05/12/2024 11:00 AM NET FISHER Lab [facility] [address] [address] Lab, [facility] 05/12/2024 11:15 AM NET FISHER Office [facility] [address] [phone] Kev Moser MD [address] [place] [phone] 05/12/2024 11:30 AM NET FISHER Clinical Support [facility] [address] [address] Nurse, [facility] documented as of this encounter Visit Diagnoses Diagnosis Other autoimmune hemolytic anemia (HCC) documented in this encounter Additional Health Concerns Assessment Noted Time PHQ-9 Depression Total Score: 0 11/25/19 11:34 AM CDT documented as of this encounter Care Teams Window Dresser Relationship Specialty Start Date End Date Scott Oneill MD PCP - General Internal Medicine 04/29/17 Kev Prince DO Gastroenterology 04/29/17 12/09/22 Tavo Mishra MD [address] [facility] [address] [place] [address] [id number] Internal Medicine 04/29/17 Gilmer Barnard MD [address] [address] Consulting Physician Internal Medicine 08/28/17 4 Kev Moser MD [address] [place] [phone] Consulting Physician Oncology 02/09/20 documented as of this encounter
--- OUTSIDE RECORDS SUMMARY | 2024-04-04 01:29 | XMS_ITS | Encounter Summary ---
Author Organization [employer] Care Team Providers Care Cloth Worker Name Role Phone Scott Oneill MD Primary Care Provider Kev Prince DO Unavailable [phone] Tavo Mishra MD Unavailable [phone] Gilmer Barnard MD Unavailable [phone] Kev Moser MD Unavailable [phone] Encounter Details Date Type Department Care Team (Latest Contact Info) Description 05/06/2022 Travel Social History Tobacco Use Types Packs/Day [...] on file Legal Sex Male 3:42 PM HOG CUTTER Gender Identity Not on file Sexual Orientation Not on file COVID-19 Exposure Response Date Recorded In the last 10 days, have yo u been in contact with someone who was confirmed or suspected to have Coronavirus/COVID-19? No / Unsure 05/06/2022 11:15 AM HOG CUTTER documented as of this encounter Plan of Treatment Upcoming Encounters Date Type Department Care Team (Late st Contact Info) Description 04/07/2024 11:10 AM HOG CUTTER Lab [facility] [address] [address] Lab, [facility] 04/07/2024 11:15 AM HOG CUTTER Clinical Support [facility] [address] [address] Nurse, [facility] 05/12/2024 11:00 AM HOG CUTTER Lab [facility] [address] [address] Lab, [facility] 05/12/2024 11:15 AM HOG CUTTER [facility] [address] [phone] Kev Moser MD [address] [place] [phone] 05/12/2024 11:30 AM HOG CUTTER Clinical Support [facility] [address] [phone] Nurse, [facility] documented as of this encounter Visit Diagnoses Not on filedocumented in this encounter Additional Health Concerns Assessment Noted Time PHQ-9 Depression Total Score: 0 11/25/19 21 11:34 AM CDT documented as of this encounter Care Teams Cloth Worker Relationship Specialty Start Date End Date Scott Oneill MD PCP - General Internal Medicine 04/29/17 Kev Prince DO Gastroenterology 04/29/17 12/09/22 Tavo Mishra MD [address] [facility] [address] [place] [address] [phone] Internal Medicine 04/29/17 Gilmer Barnard MD [address] [phone] Consulting Physician Internal Medicine 08/28/17 4 Kev Moser MD [address] [place] [address] Consulting Physician Oncology 02/09/20 documented as of this encounter
--- OUTSIDE RECORDS SUMMARY | 2024-04-04 01:29 | XMS_ITS | Encounter Summary ---
Author Organization [employer] Care Team Providers Care Academic Assistant Name Role Phone Scott Oneill MD Primary Care Provider Kev Prince DO Unavailable [phone] Tavo Mishra MD Unavailable [phone] Gilmer Barnard MD Unavailable [phone] Kev Moser MD Unavailable [phone] Encounter Details Date Type Department Care Team (Latest Contact Info) Description 03/07/2022 Travel Social History Tobacco Use Types Packs/Day [...] on file Legal Sex Male 3:42 PM INSPECTOR AND CLIPPER Gender Identity Not on file Sexual Orientation Not on file COVID-19 Exposure Response Date Recorded In the last 10 days, have yo u been in contact with someone who was confirmed or suspected to have Coronavirus/COVID-19? No / Unsure 03/07/2022 11:10 AM INSPECTOR AND CLIPPER documented as of this encounter Plan of Treatment Upcoming Encounters Date Type Department Care Team (Late st Contact Info) Description 04/07/2024 11:10 AM INSPECTOR AND CLIPPER Lab [facility] [address] [address] Lab, [facility] 04/07/2024 11:15 AM INSPECTOR AND CLIPPER Clinical Support [facility] [address] [address] Nurse, [facility] 05/12/2024 11:00 AM INSPECTOR AND CLIPPER Lab [facility] [address] [address] Lab, [facility] 05/12/2024 11:15 AM INSPECTOR AND CLIPPER Office [facility] [address] [phone] Kev Moser MD [address] [place] [phone] 05/12/2024 11:30 AM INSPECTOR AND CLIPPER Clinical Support [facility] [address] [phone] Nurse, [facility] documented as of this encounter Visit Diagnoses Not on filedocumented in this encounter Additional Health Concerns Assessment Noted Time PHQ-9 Depression Total Score: 0 11/25/19 21 11:34 AM CDT documented as of this encounter Care Teams Academic Assistant Relationship Specialty Start Date End Date Scott Oneill MD PCP - General Internal Medicine 04/29/17 Kev Prince DO Gastroenterology 04/29/17 12/09/22 Tavo Mishra MD [address] [facility] [address] [place] [address] [phone] Internal Medicine 04/29/17 Gilmer Barnard MD [address] [phone] Consulting Physician Internal Medicine 08/28/17 4 Kev Moser MD [address] [place] [address] Consulting Physician Oncology 02/09/20 documented as of this encounter
--- OUTSIDE RECORDS SUMMARY | 2024-04-04 01:29 | XMS_ITS | Encounter Summary ---
Author Organization [employer] Care Team Providers Care Control Panel Assembler Name Role Phone Scott Oneill MD Primary Care Provider [phone] Kev Prince DO Unavailable [phone] Tavo Mishra MD Unavailable [phone] Gilmer Barnard MD Unavailable [phone] Kev Moser MD Unavailable [phone] Encounter Details Date Type Department Care Team (Latest Contact Info) Description 12/04/2022 Travel Social History Tobacco Use Types Packs/Day [...] on file Legal Sex Male 3:42 PM DIETARY CLERK Gender Identity Not on file Sexual Orientation Not on file COVID-19 Exposure Response Date Recorded In the last 10 days, have yo u been in contact with someone who was confirmed or suspected to have Coronavirus/COVID-19? No / Unsure 12/04/2022 10:41 AM CDT documented as of this encounter Functional Status * Question Answer Date of Assessment Author Little interest or pleasure in doing things Not at all 12/04/2022 10:56 AM CDT Maia Garza RMA Feeling down, depressed, or hopeless Not at all 12/04/2022 10:56 AM CDT Maia Garza RMA * Over the past 2 weeks, how often have you been bothered by any of the following problems? Question Answer Date of Assessment Author Patient Health Questionnaire -2 Score 0 12/04/2022 10:56 AM CDT Maia Garza RMA documented as of this encounter Plan of Treatment Upcoming Encounters Date Type Department Care Team (Late st Contact Info) Description 04/07/2024 11:10 AM DIETARY CLERK Lab [facility] [address] [phone] Lab, [facility] 04/07/2024 11:15 AM DIETARY CLERK Clinical Support [facility] [address] [phone] Nurse, [facility] 05/12/2024 11:00 AM DIETARY CLERK Lab [facility] [address] [address] Lab, [facility] 05/12/2024 11:15 AM DIETARY CLERK Office Visit [facility] [address] [phone] Kev Moser MD [address] [place] [phone] 05/12/2024 11:30 AM DIETARY CLERK Clinical Support [facility] [address] [phone] Nurse, [facility] documented as of this encounter Visit Diagnoses Not on filedocumented in this encounter Additional Health Concerns Assessment Noted Time PHQ-9 Depression Total Score: 0 11/25/19 21 11:34 AM CDT documented as of this encounter Care Teams Control Panel Assembler Relationship Specialty Start Date End Date Scott Oneill MD PCP - General Internal Medicine 04/29/17 Kev Prince DO Gastroenterology 04/29/17 12/09/22 Tavo Mishra MD [address] [facility] [address] [place] [address] [phone] Internal Medicine 04/29/17 Gilmer Barnard MD [address] [facility] [address] [place] [address] Consulting Physician Internal Medicine 08/28/17 4 Kev Moser MD [address] [place] [phone] Consulting Physician Oncology 02/09/20 documented as of this encounter
--- OUTSIDE RECORDS SUMMARY | 2024-04-04 01:29 | XMS_ITS | Encounter Summary ---
Author Organization [facility] Address [address] [place] [address] Phone Care Team Providers Care Beef Breaker Name Role Phone Scott Oneill MD Primary Care Provider Kev Prince DO Unavailable [phone] Tavo Mishra MD Unavailable [phone] Gilmer Barnard MD Unavailable [phone] Kev Moser MD Unavailable [phone] Reason for Visit * Reason Comments Follow-up Encounter Details Date Type Department Care Team (Late st Contact Info) Description 09/04/2022 11:30 AM CDT Office Visit [facility] [address] [address] Imelda Espinal, PAC 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 No / Unsure 09/04/2022 10:48 AM CDT documented as of this encounter Last Filed Vital Signs Vital Sign Reading Time Taken Comments Blood Pressure 170/82 09/04/2022 11:07 AM CDT Pulse 61 09/04/2022 11:07 AM CDT Temperature 36.7 ??C (98 ??F) 09/04/2022 11:07 AM CDT Respiratory Rate 18 09/04/2022 11:07 AM CDT Oxygen Saturation 97% 09/04/2022 11:07 AM CDT Inhaled Oxygen Concentration - - Weight 97 kg (213 lb 14.4 oz) 09/04/2022 11:07 A M CDT Height 165.1 cm (5' 5 ) 09/04/2022 11:07 AM CDT Body Mass Index 35.59 09/04/2022 11:07 AM CDT documented in this encounter Functional [...] as of this encounter Progress Notes * Imelda Espinal, PAC - 09/04/2022 11:30 AM CDT Images from the original note were not included. Patient: Britton Nielsen Age: 67 y.o. : 1955 Encounter Dept: [facility] Encounter Date: 09/04/2022 Care Team: Current Providers PCP: Scott Oneill MD Care Team Provider: Kev Prince DO Care Team Provider: Tavo Mishra MD Care Team Provider: Gilmer Barnard MD Care Team Provider: Kev Moser MD Encounter Provider: Imelda Espinal PAC Referring Provider: not found Physician Supervisor Forming And Tempering: Imelda Espinal PAC HISTORY OF PRESENT ILLNESS: Britton returns to the office today for a followup visit. Followed by Nephrology. Followed by Gastroenterology. History of multiple colonic polyps. Annual colonoscopy. Followed by Dr. Tubbs. Denies headaches, lightheadedness, dizziness, chest pain, discomfort, abdominal pain or discomfort. No particular changes to his bowels. DIAGNOSIS: 1. Glomerulonephritis, sclerosing (renal biopsy 04/01/17). [...] PAST TREATMENT: 1. Gastroduodenal artery embolization at [facility] 05/2017. 2. Cytoxan 100 mg [...] TREATMENT: On Eliquis b.i.d. Using samples. Observation. TREATMENT GUIDELINES: Consistent with NCCN guidelines. [...] with CABG 06/2020. PLAN: 1. Repeat labs 2. Give IV iron if indicated. 3. Patient follow up with Nephrology. Next appointment is in three months. 4. Continue annual colonoscopies per Dr. Tubbs. 5. Patient's blood pressure was noted to be elevated. Followed by Primary Care/Cardiology. Blood pressure medication recently adjusted.Defer to PCP/Cardiology 6. He will return to our clinic in three months. 7. Of note, patient previously receiving monthly B12 injections. It has been several months since his last B12 injection. Recheck B12 level and restart B12 injection if necessary TIME SPENT: REVIEW OF SYSTEMS: See HPI; [...] 1. Laboratory evaluation reviewed per Care Everywhere. Imelda Espinal PA-C/[facility] Vitals: Vitals: 09/04/22 1107 BP: 170/82 BP Location: Left Arm BP Position: Sitting BP Cuff Size: Regular Pulse: 61 Resp: 18 Temp: 98 ??F (36.7 ??C) TempSrc: Temporal SpO2: 97% Weight: 213 lb 14.4 oz (97 kg) Height: 5' 5 (1.651 m) Body surface area is 2.11 meters squared. Body mass index is 35.59 kg/m??. Pain Score: 0 - No pain [...] Current Medications: Outpatient Encounter Medications as of 09/04/2022 Medication Sig Dispense Refill apixaban (Eliquis) 5 MG Tablet Take 1 Tablet by mouth 2 times daily. Indications: Prevention of Unwanted Clot in Veins 56 Tablet 0 aspirin EC 81 MG Tablet Delayed Response Take 81 mg by mouth daily. atorvastatin (LIPITOR) 40 MG Tablet Calcium Carb-Cholecalciferol (CALCIUM 600 + D PO) Take by mouth 2 times daily. cyanocobalamin 1000 MCG Tablet Take 1 tablet by mouth daily 30 Tab 0 ergocalciferol (VITAMIN D) 09675 UNIT Capsule Take 50,000 Units by mouth once a week. ezetimibe (ZETIA) 10 MG Tablet ferrous sulfate 325 (65 Fe) MG Tablet Take 1 Tab by mouth daily. furosemide (LASIX) 40 MG Tablet Take 40 mg by mouth daily. gabapentin (NEURONTIN) 300 MG Capsule gabapentin 300 mg capsule TAKE 1 CAPSULE BY MOUTH ONCE DAILY AT BEDTIME FOR 30 DAYS irbesartan (AVAPRO) 150 MG Tablet Take 150 mg by mouth daily. labetalol (NORMODYNE) 200 MG Tablet Take 200 mg by mouth 2 times daily. lisinopril (PRINIVIL, ZESTRIL) 20 MG Tablet potassium chloride SA (KLORCON M) 20 MEQ Tablet Controlled Release Take 20 mEq by mouth 2 times daily. (Patient not taking: Reported on 03/02/2021) sodium bicarbonate 650 MG Tablet Take 650 mg by mouth 2 times daily. tadalafil (CIALIS) 20 MG Tablet TAKE 1 TABLET BY MOUTH ONCE DAILY NEEDED traMADol (ULTRAM) 50 MG Tablet 0 No facility-administered encounter medications on file as of 09/04/2022. Labs: Lab on 09/04/2022 Component Date Value Ref Range Status WBC 09/04/2022 6.3 4.0 - 10.0 10*3/uL Final HGB 09/04/2022 12.1 (L) 13.7 - 17.5 g/dL Final HCT 09/04/2022 37.5 (L) 40.1 - 51.0 % Final PLT 09/04/2022 141 (L) 163 - 369 10*3/uL Final MPV 09/04/2022 9.3 (L) 9.4 - 12.4 fL Final RBC 09/04/2022 4.00 (L) 4.63 - 6.08 10*6/uL Final MCV 09/04/2022 94 79 - 95 fL Final MCH 09/04/2022 30.3 25.6 - 32.2 pg Final MCHC 09/04/2022 32.3 32.2 - 36.5 g/dL Final RDW 09/04/2022 14.2 11.6 - 14.4 % Final Cosigned by Kev Moser MD at 09/10/2022 10:16 AM CDT documented in this encounter Plan of Treatment Upcoming Encounters Date Type Department Care Team (Late st Contact Info) Description 04/07/2024 11:10 AM COMMUNICATIONS COORDINATOR Lab [facility] [address] [phone] Lab, [place] 04/07/2024 11:15 AM COMMUNICATIONS COORDINATOR Clinical Support [facility] [address] [phone] [facility] 05/12/2024 11:00 AM COMMUNICATIONS COORDINATOR Lab [facility] [address] [phone] Lab, [facility] 05/12/2024 11:15 AM COMMUNICATIONS COORDINATOR Office Visit [facility] [address] [phone] Kev Moser MD [address] [place] [phone] 05/12/2024 11:30 AM COMMUNICATIONS COORDINATOR Clinical Support [facility] [address] [phone] Nurse, [facility] documented as of this encounter Results * VITAMIN B12 (12/04/2022 10:42 AM CDT) Vitamin B12 455 180 - 914 pg/mL [facility] Blood 12/04/2022 10:4 2 AM CDT Narrative [facility] - 12/05/2022 2:38 PM CDT Release to patient->Immediate Imelda Espinal PAC CHEMISTRY ORDERABLES Final Result [facility] [place] [address], * FOLIC ACID (FOLATE) (12/04/2022 10:42 AM CDT) Folate 9.80 >=5.90 ng/mL [facility] Blood 12/04/2022 10:4 2 AM CDT Prateek [facility] - 12/05/2022 2:38 PM CDT Release to patient->Immediate IS THE PATIENT REQUIRED TO BE FASTING FOR 12 HOURS?->No us Imelda Espinal PAC CHEMISTRY ORDERABLES Final Result Performing Organization Address [facility]/ZIP Co de Phone Number [facility] [address] [place] [address], [place] [phone] * (ABNORMAL) FERRITIN (12/04/2022 10:42 AM CDT) Ferritin 414(H) 24 - 336 ng/mL [facility] Blood 12/04/2022 10:4 2 AM CDT [facility] - 12/05/2022 2:38 PM CDT Release to patient->Immediate us Imelda Espinal PAC CHEMISTRY ORDERABLES Final Result Performing Organization Address [facility]/RUST Co de Phone Number [facility] [address] [place] [address], [place] [phone] * (ABNORMAL) IRON W/ IRON BINDING CAPACITY [place] (12/04/2022 10:42 AM CDT) IRON 57 50 - 212 ug/dL [facility] UIBC 182 155 - 355 ug/dL [facility] TIBC 239(L) 261 - 478 ug/dl [facility] % Saturation 24 20 - 50 % [facility] Blood 12/04/2022 10:4 2 AM CDT [facility] - 12/04/2022 11:59 AM CDT Release to patient->Immediate us Imelda Espinal PAC LAB SEND OUTS Final Resu lt Performing Organization Address [facility]/ZIP Co de Phone Number [facility] [address] [place] [address], [place] [phone] * (ABNORMAL) CMP (COMPREHENSIVE METABOLIC PANEL) (12/04/2022 10:42 AM CDT) Glucose 77 70 - 105 mg/dL [facility] Blood Urea Nitrogen 32(H) 7 - 25 mg/dL [facility] Creatinine 2.1(H) 0.7 - 1.3 mg/dL [facility] Sodium 139 136 - 145 mEq/L [facility] Potassium 5.0 3.5 - 5.1 mEq/L [facility] Chloride 107 98 - 107 mEq/L [facility] Bicarbonate 24 21 - 31 mEq/L [facility] Total Bilirubin 0.8 0.3 - 1.0 mg/dL [facility] Alk. Phosphatase 105(H) 34 - 104 U/L [facility] Aspartate Aminotransferase 10(L) 13 - 39 U/L [facility] Alanine Aminotransferase 12 7 - 52 U/L [facility] Total Protein 6.6 6.4 - 8.9 g/dL [facility] Albumin 4.1 3.5 - 5.7 g/dL [facility] Calcium 8.3(L) 8.6 - 10.3 mg/dL [facility] Anion Gap 13.0 7.0 - 15.0 mEq/L [facility] Globulin 2.5 2.0 - 3.5 g/dL [facility] EGFR 33(L) >60 ml/min/1. 73m2 [facility] Comment: This eGFR is calculated using 2020 CKD-EPI Creatinine equation without race modifier based on the NKF-ASN task force recommendations Blood 12/04/2022 10:4 2 AM CDT Narrative [facility] - 12/04/2022 11:59 AM CDT Release to patient->Immediate IS THE PATIENT REQUIRED TO BE FASTING FOR 8 HOURS?->No us Imelda Espinal PAC CHEMISTRY ORDERABLES Final Result [facility] [place] [address], * (ABNORMAL) COMPLETE BLOOD COUNT (CBC) WITH DIFF (12/04/2022 10:42 AM CDT) WBC 6.5 4.0 - 10.0 10*3/uL [facility] HGB 11.6(L) 13.7 - 17.5 g/dL [facility] HCT 35.7(L) 40.1 - 51.0 % [facility] PLT 133(L) 163 - 369 10*3/uL [facility] MPV 9.2(L) 9.4 - 12.4 fL [facility] RBC 3.82(L) 4.63 - 6.08 10*6/uL [facility] MCV 94 79 - 95 fL [facility] MCH 30.4 25.6 - 32.2 pg [facility] MCHC 32.5 32.2 - 36.5 g/dL [facility] RDW 13.6 11.6 - 14.4 % [facility] Absolute Neutrophil Count 4,940 cells/uL [facility] Absolute Seg Count 4,940 1,440 - 6,600 cells/uL [facility] Absolute Lymph Count 910 760 - 4,000 cells/uL [facility] Absolute [place] Count 325 160 - 1,200 cells/uL [facility] Absolute Eos Count 325(H) 0 - 300 cells/uL [facility] Segmented Neutrophils 76(H) 36 - 66 % [facility] Lymphocytes 14(L) 19 - 40 % [facility] C [facility]TER [facility] Monocytes 5 4 - 12 % [facility]ER [facility] Eosinophils 5(H) 0 - 3 % [facility] WBC Estimate Normal [facility] Platelet Estimate Low [facility] RBC Morphology Normal [facility] R PHYSICIAN [facility] Blood 12/04/2022 10:4 2 AM CDT Narrative [facility] - 12/04/2022 1:57 PM CDT Release to patient->Immediate Ebenburak Espinal PAC HEMATOLOGY ORDERABLES Devorah l Result [facility] [address] [place] [address], documented in this encounter Visit Diagnoses Diagnosis 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 Vitamin B 12 deficiency Other B-complex deficiencies Stage 3a chronic kidney disease (HCC) Vitamin B 12 deficiency Other B-complex deficiencies Iron deficiency anemia due to sideropenic dysphagia Stage 3a chronic kidney disease (HCC) documented in this encounter Additional Health Concerns Assessment Noted Time PHQ-9 Depression Total Score: 0 11/25/19 21 11:34 AM CDT documented as of this encounter Care Teams Beef Breaker Relationship Specialty Start Date End Date Scott Oneill MD PCP - General Internal Medicine 04/29/17 Kev Prince DO Gastroenterology 04/29/17 12/09/22 Tavo Mishra MD [address] [place] [phone] Internal Medicine 04/29/17 Gilmer Barnard MD [address] [place] [phone] Consulting Physician Internal Medicine 08/28/17 4 Kev Moser MD [address] [place] [phone] Consulting Physician Oncology 02/09/20 documented as of this encounter
--- OUTSIDE RECORDS SUMMARY | 2024-04-04 01:29 | XMS_ITS | Encounter Summary ---
Author Organization [email or web address] Care Team Providers Care Ems Instructor Name Role Phone Scott Oneill MD Primary Care Provider [phone] Kev Prince DO Unavailable [phone] Tavo Mishra MD Unavailable [phone] Gilmer Barnard MD Unavailable [phone] eKv Moser MD Unavailable [phone] Encounter Details Date Type Department Care Team (Latest Contact Info) Description 03/01/2022 Travel Social History Tobacco Use Types Packs/Day [...] Legal Sex Male 3:42 PM PROJECT MANAGER FINANCE Gender Identity Not on file Sexual Orientation Not on file COVID-19 Exposure Response Date Recorded In the last 10 days, have yo u been in contact with someone who was confirmed or suspected to have Coronavirus/COVID-19? No / Unsure 03/01/2022 11:00 AM PROJECT MANAGER FINANCE documented as of this encounter Functional Status * Question Answer Date of Assessment Author Little interest or pleasure in doing things Not at all 03/01/2022 11:23 AM PROJECT MANAGER FINANCE Maia Garza, DEVEN Feeling down, depressed, or hopeless Not at all 03/01/2022 11:23 AM PROJECT MANAGER FINANCE Maia Garza DEVEN * Over the past 2 weeks, how often have you been bothered by any of the following problems? Question Answer Date of Assessment Author Patient Health Questionnaire -2 Score 0 03/01/2022 11:23 AM PROJECT MANAGER FINANCE Maia Garza RMA documented as of this encounter Plan of Treatment Upcoming Encounters Date Type Department Care Team (Late st Contact Info) Description 04/07/2024 11:10 AM PROJECT MANAGER FINANCE Lab [facility] [address] [phone] Lab, [facility] 04/07/2024 11:15 AM PROJECT MANAGER FINANCE Clinical Support [facility] [address] [phone] Nurse, [facility] 05/12/2024 11:00 AM PROJECT MANAGER FINANCE Lab [facility] [address] [phone] Lab, [facility] 05/12/2024 11:15 AM PROJECT MANAGER FINANCE Office Visit [facility] [address] [phone] Kev Moser MD [address] [place] [phone] 05/12/2024 11:30 AM PROJECT MANAGER FINANCE Clinical Support [facility] [address] [phone] Nurse, [facility] documented as of this encounter Visit Diagnoses Not on filedocumented in this encounter Additional Health Concerns Assessment Noted Time PHQ-9 Depression Total Score: 0 11/25/19 21 11:34 AM CDT documented as of this encounter Care Teams Ems Instructor Relationship Specialty Start Date End Date Scott Oneill MD PCP - General Internal Medicine 04/29/17 Kev Prince DO Gastroenterology 04/29/17 12/09/22 Tavo Mishra MD [address] [place] [address] [phone] Internal Medicine 04/29/17 Gilmer Barnard MD [address] [place] [phone] Consulting Physician Internal Medicine 08/28/17 4 Kev Moser MD [address] [place] [phone] Consulting Physician Oncology 02/09/20 documented as of this encounter
--- OUTSIDE RECORDS SUMMARY | 2024-04-04 01:29 | XMS_ITS | Encounter Summary ---
Author Organization [facility] Address [address] [place] [address] Phone Care Team Providers Care Software Applications Designer Name Role Phone Scott Oneill MD Primary Care Provider Kev Prince DO Unavailable [phone] Tavo Mishra MD Unavailable [phone] Gilmer Barnard MD Unavailable [phone] Kev Moser MD Unavailable [phone] Reason for Visit * Reason Comments Iron Infusion Labs Only Therapeutic Injection * Episode Based Medications (Routine) - Authorized Specialty Diagnoses / Procedures Referred By Rocky blancas Referred To Contact Diagnoses Iron deficiency anemia due to sideropenic dysphagia Procedures INJ FERRIC CARBOXYMALTOS 1MG Nj Rodriguez DO [address] [place] [phone] Phone: tel: fax: [facility] [address] [address] Phone: tel: fax: Referral ID Status Reason Start Date Expiration Date V isits Requested Visits Authorized [id number] Authorized 03/04/2022 03/30/2024 1 1 Encounter Details Date Type Department Care Team (Latest Contact Info) Description 03/29/2022 8:00 AM FINANCING ANALYST Clinical Support [facility] [address] [place] [address] Nurse, [facility] 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 No / Unsure 03/29/2022 7:49 AM FINANCING ANALYST documented as of this encounter Progress Notes * Ne Villegas RN - 03/29/2022 8:00 AM CST Labs obtained peripherally from right arm. Gauze/coban applied. PIV inserted into left arm. Patient tolerated Injectafer infusion well with no signs or symptoms ofreaction. PIV removed intact. Gauze/coban applied. Patient's performance status has not changed since arrival to clinic. Patient discharged ambulatory accompanied by support person. Eliquis 5mg sample dispense Take one tablet by mouth twice daily. 4 boxes given (56 tabs) LOT#: [id number] EXP:??06/22 NCING ANALYST documented in this encounter Plan of Treatment Upcoming Encounters Date Type Department Care Team (Late st Contact Info) Description 04/07/2024 11:10 AM FINANCING ANALYST Lab [facility] [address] [phone] Lab, [facility] 04/07/2024 11:15 AM FINANCING ANALYST Clinical Support [facility] [address] [phone] Nurse, [facility] 05/12/2024 11:00 AM FINANCING ANALYST Lab [facility] [address] [phone] Lab, [facility] 05/12/2024 11:15 AM FINANCING ANALYST Office Visit [facility] [address] [phone] Kev Moser MD [address] [place] [phone] 05/12/2024 11:30 AM FINANCING ANALYST Clinical Support [facility] [address] [phone] Nurse, [facility] documented as of this encounter Procedures Procedure Name Priority Date/Time Associated Diagnosis Comments PHOSPHORUS (PO4) Routine 03/29/2022 8:09 AM FINANCING ANALYST Iron deficiency anemia due to sideropenic dysphagia documented in this encounter Results * PHOSPHORUS (PO4) (03/29/2022 8:09 AM FINANCING ANALYST) Phosphorous 3.7 2.5 - 4.6 mg/dL [facility] Blood 03/29/2022 8:09 AM FINANCING ANALYST Narrative [facility] - 03/29/2022 1:31 PM FINANCING ANALYST Release to patient->Immediate us Kev Moser MD CHEMISTRY ORDERABLES Final Result [facility] [place] [address], documented in this encounter Visit Diagnoses Diagnosis [...] 1,000 mcg, Subcutaneous, ONCE, 1 dose, On Fri03/29/22 at 0900, To be given 1 week prior to Chemotherapy. Route IM or SUBQ.Indications:Vitamin B 12 deficiency Given 03/29/2022 8:40 AM FINANCING ANALYST 1,000 mcg Right Lateral Upper Arm ferric carboxymaltose (INJECTAFER) 750 mg in sodium chloride 0.9 % 100 mL IVPB 750 mg (set by rule on 03/04/2022 1:39 PM), Intravenous, ONCE, 1 dose, On Fri03/29/22 at 0900, Administer over 15 Minutes, Route IV. NS 100-250 ml. Infuse over 15 minutes. Must ovserve for 30 minutes after infusion complete.Indications:Iron deficiency anemia due to sideropenic dysphagia New Bag 03/29/2022 8:40 AM FINANCING ANALYST 750 mg documented in this encounter Additional Health Concerns Assessment Noted Time PHQ-9 Depression Total Score: 0 11/25/19 21 11:34 AM CDT documented as of this encounter Care Teams Software Applications Designer Relationship Specialty Start Date End Date Scott Oneill MD PCP - General Internal Medicine 04/29/17 Kev Prince DO Gastroenterology 04/29/17 12/09/22 Tavo Mishra MD [address] [facility] [address] [place] [address] [phone] Internal Medicine 04/29/17 Gilmer Barnard MD [address] [place] [phone] Consulting Physician Internal Medicine 08/28/17 4 Kev Moser MD [address] [place] [phone] Consulting Physician Oncology 02/09/20 documented as of this encounter
--- OUTSIDE RECORDS SUMMARY | 2024-04-04 01:29 | XMS_ITS | Encounter Summary ---
Author Organization [facility] Address [address] [place] [address] Phone Care Team Providers Care Nuclear Security Officer Name Role Phone Scott Oneill MD Primary Care Provider [phone] Kev Prince DO Unavailable [phone] Tavo Mishra MD Unavailable [phone] Gilmer Barnard MD Unavailable [phone] Kev Moser MD Unavailable [phone] Reason for Visit * Reason Comments Follow-up Encounter Details Date Type Department Care Team (Late st Contact Info) Description 12/04/2022 11:30 AM CDT Office Visit [facility] [address] [place] [address] Cee Rios, DEVELOPMENT TECHNICAL LEAD, FAMILY SERVICES WORKER [address] [place] [id number] 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 No / Unsure 12/04/2022 10:41 AM CDT documented as of this encounter Last Filed Vital Signs Vital Sign Reading Time Taken Comments Blood Pressure 150/72 12/04/2022 10:56 AM CDT Pulse 62 12/04/2022 10:56 AM CDT Temperature 36.8 ??C (98.2 ??F) 12/04/2022 10:56 AM C DT Respiratory Rate 18 12/04/2022 10:56 AM CDT Oxygen Saturation 96% 12/04/2022 10:56 AM CDT Inhaled Oxygen Concentration - - Weight 99.6 kg (219 lb 8 oz) 12/04/2022 10:56 AM CDT Height 165.1 cm (5' 5 ) 12/04/2022 10:56 AM CDT Body Mass Index 36.53 12/04/2022 10:56 AM CDT documented in this encounter Functional Status * Question Answer Date of Assessment Author Little interest or pleasure in doing things Not at all 12/04/2022 10:56 AM CDT Greg, Maia A, RMA Feeling down, depressed, or hopeless Not at all 12/04/2022 10:56 AM CDT Greg Maia A, RMA * Over the past 2 weeks, how often have you been bothered by any of the following problems? Question Answer Date of Assessment Author Patient Health Questionnaire -2 Score 0 12/04/2022 10:56 AM CDT Greg, Maia A, RMA documented as of this encounter Progress Notes * Cee Dc, DEVELOPMENT TECHNICAL LEAD, FAMILY SERVICES WORKER - 12/04/2022 11:30 AM CDT Images from the original note were not included. Patient: Britton Nielsen Age: 67 y.o. : 1955 Encounter Dept: [facility] Encounter Date: 12/04/2022 Care Team: Current Providers PCP: Scott Oneill MD Care Team Provider: Kev Prince DO Care Team Provider: Tavo Mishra MD Care Team Provider: Gilmer Barnard MD Care Team Provider: Kev Moser MD Encounter Provider: Cee Dc APRN, CNP Referring Provider: not found Nurse Practitioner: Cee Dc APRN, CNP HISTORY OF PRESENT ILLNESS: Mr. Britton Nielsen returns to clinic for follow- up. Since his last visit, Britotn states he has been doing well. He has no significant change in his condition. Patient denies any fevers, chills, shortness of breath, chest pain, abdominal pain, or bleeding. He is stayingvery active. Patient continues on Eliquis 5 mg BID. He has been getting samples through our clinic. DIAGNOSIS: 1. Glomerulonephritis, sclerosing (renal biopsy 04/01/17). [...] PAST TREATMENT: 1. Gastroduodenal artery embolization at [facility] 05/2017. 2. Cytoxan 100 mg daily. [...] samples. 2. Observation. 3. Monthly B12 injections. TREATMENT GUIDELINES: Consistent with [...] with Britton that clinically he is doing well. 2. Laboratory evaluation from 12/04/22 showed a white blood cell count of 6.5, hemoglobin 11.6, hematocrit 35.7, and platelet count of 133,000. MCV 94. MCH 30.4. CMP, iron studies, ferritin, vitamin B12, and folic acid are still in process. 3. Patient is due for his B12 injection today. He will continue this monthly. 4. Continue Eliquis 5 mg BID. Patient has been getting samples through our clinic. 5. Continue following with Dr. Tubbs in GI for annual colonoscopies. He was due in September. We will senda referral back to Dr. Tubbs. 6. Patient will continue following with Nephrology, Cardiology, and his PCP. 7. I will have the patient return to clinic for follow-up with office visit and labs again in four months. 8. I encouraged the patient to call with [...] Kev Moser MD, FACP Cee Dc, DNP, WORKDAY DIRECTOR- Vitals: Vitals: 12/04/22 1056 BP: 150/72 BP Location: Left Arm BP Position: Sitting BP Cuff Size: Regular Pulse: 62 Resp: 18 Temp: 98.2 ??F (36.8 ??C) TempSrc: Temporal SpO2: 96% Weight: 219 lb 8 oz (99.6 kg) Height: 5' 5 (1.651 m) Body surface area is 2.14 meters squared. Body mass index is 36.53 kg/m??. Pain Score: 5 Pain Loc: Foot (bilateral feet (neuropathy)) Pain Edu?: Yes Allergies: No Known Allergies PMH/SgH/FH/SH: Past medical, [...] Types: Cigarettes Quit date: 05/23/2011 Years since quittin.5 ??? Smokeless tobacco: Never Vaping Use ??? [...] Current Medications: Outpatient Encounter Medications as of 12/04/2022 Medication Sig Dispense Refill ??? apixaban (Eliquis) [...] 30 Tab 0 ??? ergocalciferol (VITAMIN D) 28360 UNIT Capsule Take 50,000 Units by mouth once a week. ??? ezetimibe (ZETIA) 10 MG Tablet ??? ferrous sulfate 325 (65 Fe) MG [...] facility-administered encounter medications on file as of 12/04/2022. Labs: Lab on 12/04/2022 Component Date Value Ref Range Status ??? WBC 12/04/2022 6.5 4.0 - 10.0 [...] 12/04/2022 13.6 11.6 - 14.4 % Final Cosigned by Kev Moser MD at 12/05/2022 11:42 AM CDT documented in this encounter Plan of Treatment Upcoming Encounters Date Type Department Care Team (Late st Contact Info) Description 04/07/2024 11:10 AM BRUSH HEAD MAKER Lab [facility] [address] [address] Lab, [facility] 04/07/2024 11:15 AM BRUSH HEAD MAKER Clinical Support [facility] [address] [address] Nurse, [facility] 05/12/2024 11:00 AM BRUSH HEAD MAKER Lab [facility] [address] [address] Lab, [facility] 05/12/2024 11:15 AM BRUSH HEAD MAKER Office Visit [facility] [address] [phone] Kev Moser MD [address] [place] [address] 05/12/2024 11:30 AM BRUSH HEAD MAKER Clinical Support [facility] [address] [place] [address] Nurse, [facility] documented as of this encounter Results * (ABNORMAL) RETICULOCYTE COUNT (RETIC) (04/02/2023 10:56 AM BRUSH HEAD MAKER) Reticulocyte count 2.50(H) 0.51 - 1.81 % [facility] APPLIANCE TECHNICIAN [facility] RET-He 29.60 28.20 - 36.60 pg [facility] TECHNIC[facility] Comment: RET-He is a direct assessment of incorporation of iron into erythrocyte hemoglobin. It provides an indirect measure of the iron available for new erythropoiesis over past 2-4 days. Blood 04/02/2023 10:5 6 AM BRUSH HEAD MAKER Narrative [facility] 04/02/2023 11:32 AM BRUSH HEAD MAKER Release to patient->Immediate Cee Rios APRN, FAMILY SERVICES WORKER HEMATOLOGY ORDERA BLES Final Result [facility] APPLIANCE TECHNICIAN [facility] [address] [place] [address], * (ABNORMAL) IRON W/ IRON BINDING CAPACITY [place] (04/02/2023 10:56 AM BRUSH HEAD MAKER) IRON 41(L) 50 - 212 ug/dL [facility] APPLIANCE TECHNICIAN [facility] UIBC 197 155 - 355 ug/dL [facility] TIBC 238(L) 261 - 478 ug/dl [facility] % Saturation 17(L) 20 - 50 % [facility] APPLIANCE TECHNICIAN [facility] 04/02/2023 10:5 6 AM BRUSH HEAD MAKER Narrative [facility] 04/02/2023 12:45 PM BRUSH HEAD MAKER Release to patient->Immediate Cee Rios APRN, FAMILY SERVICES WORKER LAB SEND OUTS F inal Result Performing Organization Address City/[facility]/ZIP Co de Phone Number [facility] [place] [place] [address], * (ABNORMAL) FERRITIN (04/02/2023 10:56 AM BRUSH HEAD MAKER) Ferritin 466(H) 24 - 336 ng/mL [facility] Blood 04/02/2023 10:5 6 AM BRUSH HEAD MAKER [facility] - 04/03/2023 2:52 PM BRUSH HEAD MAKER Release to patient->Immediate Cee Rios APRN, FAMILY SERVICES WORKER CHEMISTRY ORDERAB LES Final Result Performing Organization Address [facility] Co de Phone Number [facility] [place] [address], [place] [phone] * FOLIC ACID (FOLATE) (04/02/2023 10:56 AM BRUSH HEAD MAKER) Folate 9.08 >=5.90 ng/mL [facility] Blood 04/02/2023 10:5 6 AM BRUSH HEAD MAKER [facility] - 04/03/2023 2:52 PM BRUSH HEAD MAKER Release to patient->Immediate IS THE PATIENT REQUIRED TO BE FASTING FOR 12 HOURS?->No Cee Rios DEVELOPMENT TECHNICAL LEAD, FAMILY SERVICES WORKER CHEMISTRY ORDERAB LES Final Result Performing Organization Address [facility]/ZIP Co de Phone Number [facility] [place] [address], [place] [phone] * VITAMIN B12 (04/02/2023 10:56 AM BRUSH HEAD MAKER) Vitamin B12 492 180 - 914 pg/mL [facility] Blood 04/02/2023 10:5 6 AM BRUSH HEAD MAKER Narrative [facility] - 04/03/2023 2:52 PM BRUSH HEAD MAKER Release to patient->Immediate us Cee Rios APRN, CNP CHEMISTRY ORDERAB LES Final Result [facility]CER APPLIANCE TECHNICIAN [facility] [place] [address], * (ABNORMAL) CMP (COMPREHENSIVE METABOLIC PANEL) (04/02/2023 10:56 AM BRUSH HEAD MAKER) Glucose 121(H) 70 - 105 mg/dL [facility] Blood Urea Nitrogen 32(H) 7 - 25 mg/dL [facility] Creatinine 2.4(H) 0.7 - 1.3 mg/dL [facility] Sodium 139 136 - 145 mEq/L [facility] Potassium 4.7 3.5 - 5.1 mEq/L [facility] Chloride 105 98 - 107 mEq/L [facility] Bicarbonate 24 21 - 31 mEq/L [facility] Total Bilirubin 0.7 0.3 - 1.0 mg/dL [facility] Alk. Phosphatase 83 34 - 104 U/L [facility] Aspartate Aminotransferase 9(L) 13 - 39 U/L [facility] Alanine Aminotransferase 11 7 - 52 U/L [facility] Total Protein 6.8 6.4 - 8.9 g/dL [facility] Albumin 3.9 3.5 - 5.7 g/dL [facility] Calcium 8.6 8.6 - 10.3 mg/dL [facility] Anion Gap 14.7 7.0 - 15.0 mEq/L [facility] Globulin 2.9 2.0 - 3.5 g/dL [facility] EGFR 28(L) >60 ml/min/1. 73m2 [facility] Comment: This eGFR is calculated using 2020 CKD-EPI Creatinine equation without race modifier based on the NKF-ASN task force recommendations Blood 04/02/2023 10:5 6 AM BRUSH HEAD MAKER Narrative CANCER APPLIANCE TECHNICIAN [facility] - 04/02/2023 12:45 PM BRUSH HEAD MAKER Release to patient->Immediate IS THE PATIENT REQUIRED TO BE FASTING FOR 8 HOURS?->No Cee Rios DEVELOPMENT TECHNICAL LEAD, FAMILY SERVICES WORKER CHEMISTRY ORDERAB LES Final Result CANCER APPLIANCE TECHNICIAN [facility] [address] [place] [address], * (ABNORMAL) COMPLETE BLOOD COUNT (CBC) WITH DIFF (04/02/2023 10:56 AM BRUSH HEAD MAKER) WBC 5.8 4.0 - 10.0 10*3/uL [facility] APPLIANCE TECHNICIAN [facility] HGB 11.1(L) 13.7 - 17.5 g/dL [facility] APPLIANCE TECHNICIAN [facility] HCT 35.3(L) 40.1 - 51.0 % [facility] APPLIANCE TECHNICIAN [facility] PLT 169 163 - 369 10*3/uL [facility]PLIANCE TECHNIC[facility] MPV 9.5 9.4 - 12.4 fL [facility] APPLIANCE TECHNICIAN [facility] RBC 3.76(L) 4.63 - 6.08 10*6/uL [facility] APPLIANCE TECHNICIAN [facility] MCV 94 79 - 95 fL [facility] APPLIANCE TECHNICIAN [facility] MCH 29.5 25.6 - 32.2 pg [facility] APPLIANCE TECHNICIAN [facility] MCHC 31.4(L) 32.2 - 36.5 g/dL [facility]ER APPLIANCE TECHNICIAN [facility] RDW 15.6(H) 11.6 - 14.4 % [facility]ER APPLIANCE TECHNICIAN [facility] Absolute Neutrophil Count 4,624 cells/uL [facility] Absolute Seg Count 4,624 1,440 - 6,600 cells/uL [facility] APPLIANCE TECHNICIAN [facility] Absolute Lymph Count 694(L) 760 - 4,000 cells/uL [facility] APPLIANCE TECHNICIAN [facility] Absolute Person Count 231 160 - 1,200 cells/uL [facility] APPLIANCE TECHNICIAN [facility] Absolute Eos Count 231 0 - 300 cells/uL [facility] APPLIANCE TECHNICIAN [facility] Segmented Neutrophils 80(H) 36 - 66 % [facility]ER APPLIANCE TECHNICIAN [facility] Lymphocytes 12(L) 19 - 40 % [facility] Monocytes 4 4 - 12 % [facility] Eosinophils 4(H) 0 - 3 % [facility] WBC Estimate Normal [facility]ER APPLIANCE TECHNICIAN [facility] Platelet Estimate Normal [facility]ER APPLIANCE TECHNICIAN [facility] RBC Morphology Abnormal CANCE R APPLIANCE TECHNICIAN [facility] Anisocytosis 1+ [facility] APPLIANCE TECHNICIAN [facility] Blood 04/02/2023 10:5 6 AM BRUSH HEAD MAKER Narrative CANCER APPLIANCE TECHNICIAN [facility] - 04/02/2023 2:43 PM BRUSH HEAD MAKER Release to patient->Immediate us Cee Rios DEVELOPMENT TECHNICAL LEAD, FAMILY SERVICES WORKER HEMATOLOGY ORDERA BLES Final Result [facility] APPLIANCE TECHNICIAN [facility] [place] [address], documented in this encounter Visit Diagnoses Diagnosis 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 Anemia, unspecified type Vitamin B 12 deficiency Other B-complex deficiencies Stage 3a chronic kidney disease (HCC) Iron deficiency anemia due to sideropenic dysphagia Anemia, unspecified type Vitamin B 12 deficiency Other B-complex deficiencies Stage 3a chronic kidney disease (HCC) documented in this encounter Additional Health Concerns Assessment Noted Time PHQ-9 Depression Total Score: 0 11/25/19 21 11:34 AM CDT documented as of this encounter Care Teams Nuclear Security Officer Relationship Specialty Start Date End Date Scott Oneill MD PCP - General Internal Medicine 04/29/17 Kev Prince DO Gastroenterology 04/29/17 12/09/22 Tavo Mishra MD [address] [place] [address] Internal Medicine 04/29/17 Gilmer Barnard MD [address] [place] [address] Consulting Physician Internal Medicine 08/28/17 4 Kev Moser MD [address] [place] [phone] Consulting Physician Oncology 02/09/20 documented as of this encounter
--- OUTSIDE RECORDS SUMMARY | 2024-04-04 01:29 | XMS_ITS | Encounter Summary ---
Author Organization [facility] Address [address] [place] [address] Phone Care Team Providers Care Surgical Elastic Knitter Name Role Phone Scott Oneill MD Primary Care Provider [phone] Kev Prince DO Unavailable [phone] Tavo Mishra MD Unavailable [phone] Gilmer Barnard MD Unavailable [phone] Kev Moser MD Unavailable [phone] Encounter Details Date Type Department Care Team (Late st Contact Info) Description 09/10/2022 Telephone [facility] [address] [address] Imelda Espinal, PAC Social History Tobacco Use Types Packs/Day Years [...] on file Legal Sex Male 3:42 PM VIDEOGAME DESIGNER Gender Identity Not on file Sexual Orientation Not on file COVID-19 Exposure Response Date Recorded In the last 10 days, have yo u been in contact with someone who was confirmed or suspected to have Coronavirus/COVID-19? No / Unsure 09/04/2022 10:48 AM CDT documented as of this encounter Miscellaneous Notes * Telephone Encounter - Bailey Cadet RN - 09/10/2022 12:11 PM CDT Pt notified and scheduled for next 2 monthly b12 injections. * Telephone Encounter - Imelda Espinal PAC - 09/10/2022 9:51 AM CDT Resume monthly B12 injection documented in this encounter Plan of Treatment Upcoming Encounters Date Type Department Care Team (Late st Contact Info) Description 04/07/2024 11:10 AM VIDEOGAME DESIGNER Lab [facility] [address] [address] Lab, [facility] 04/07/2024 11:15 AM VIDEOGAME DESIGNER Clinical Support [facility] [address] [phone] Nurse, [facility] 05/12/2024 11:00 AM VIDEOGAME DESIGNER Lab [facility] [address] [phone] Lab, [facility] 05/12/2024 11:15 AM VIDEOGAME DESIGNER Office Visit [facility] [address] [phone] Kev Moser MD [address] [place] [phone] 05/12/2024 11:30 AM VIDEOGAME DESIGNER Clinical Support [facility] [address] [phone] Nurse, [facility] documented as of this encounter Visit Diagnoses Not on filedocumented in this encounter Additional Health Concerns Assessment Noted Time PHQ-9 Depression Total Score: 0 11/25/19 21 11:34 AM CDT documented as of this encounter Care Teams Surgical Elastic Knitter Relationship Specialty Start Date End Date Scott Oneill MD PCP - General Internal Medicine 04/29/17 Kev Prince DO Gastroenterology 04/29/17 12/09/22 Tavo Mishra MD [address] [place] [address] Internal Medicine 04/29/17 Gilmer Barnard MD [address] [place] [address] [phone] Consulting Physician Internal Medicine 08/28/17 4 Kev Moser MD [address] [place] [phone] Consulting Physician Oncology 02/09/20 documented as of this encounter
--- OUTSIDE RECORDS SUMMARY | 2024-04-04 01:29 | XMS_ITS | Encounter Summary ---
Author Organization [facility] Care Team Providers Care Commercial Energy Auditor Name Role Phone Scott Oneill MD Primary Care Provider [phone] Kev Prince DO Unavailable [phone] Tavo Mishra MD Unavailable [phone] Gilmer Barnard MD Unavailable [phone] Kev Moser MD Unavailable [phone] Encounter Details Date Type Department Care Team (Latest Contact Info) Description 03/22/2022 Travel Social History Tobacco Use Types Packs/Day [...] on file Legal Sex Male 3:42 PM TACKING MACHINE OPERATOR Gender Identity Not on file Sexual Orientation Not on file COVID-19 Exposure Response Date Recorded In the last 10 days, have yo u been in contact with someone who was confirmed or suspected to have Coronavirus/COVID-19? No / Unsure 03/22/2022 7:35 AM TACKING MACHINE OPERATOR documented as of this encounter Plan of Treatment Upcoming Encounters Date Type Department Care Team (Late st Contact Info) Description 04/07/2024 11:10 AM TACKING MACHINE OPERATOR Lab [facility] [address] [address] Lab, [facility] 04/07/2024 11:15 AM TACKING MACHINE OPERATOR Clinical Support [facility] [address] [address] Nurse, [facility] 05/12/2024 11:00 AM TACKING MACHINE OPERATOR Lab [facility] [address] [address] Lab, [facility] 05/12/2024 11:15 AM TACKING MACHINE OPERATOR Office Visit [facility] [address] [phone] Kev Moser MD [address] [place] [phone] 05/12/2024 11:30 AM TACKING MACHINE OPERATOR Clinical Support [facility] [address] [phone] Nurse, [facility] documented as of this encounter Visit Diagnoses Not on filedocumented in this encounter Additional Health Concerns Assessment Noted Time PHQ-9 Depression Total Score: 0 11/25/19 21 11:34 AM CDT documented as of this encounter Care Teams Commercial Energy Auditor Relationship Specialty Start Date End Date Scott Oneill MD PCP - General Internal Medicine 04/29/17 Kev Prince DO Gastroenterology 04/29/17 12/09/22 Tavo Mishra MD [address] [facility] [address] [place] [address] [phone] Internal Medicine 04/29/17 Gilmer Barnard MD [address] [phone] Consulting Physician Internal Medicine 08/28/17 4 Kev Moser MD [address] [place] [address] Consulting Physician Oncology 02/09/20 documented as of this encounter
--- OUTSIDE RECORDS SUMMARY | 2024-04-04 01:29 | XMS_ITS | Encounter Summary ---
Author Organization [facility] Address [address] [place] [address] Phone Care Team Providers Care Planning Director Name Role Phone Scott Oneill MD Primary Care Provider [phone] Kev Prince DO Unavailable [phone] Tavo Mishra MD Unavailable [phone] Gilmer Barnard MD Unavailable [phone] Kev Moser MD Unavailable [phone] Encounter Details Date Type Department Care Team (Late st Contact Info) Description 03/04/2022 Telephone [facility] [address] [place] [address] Sindi Qiu, SCHEME TECHNICIAN, ELEMENTARY ASSISTANT TEACHER [address] [place] [address] Social History Tobacco Use Types [...] on file Legal Sex Male 3:42 PM PAEDODONTIST Gender Identity Not on file Sexual Orientation Not on file COVID-19 Exposure Response Date Recorded In the last 10 days, have yo u been in contact with someone who was confirmed or suspected to have Coronavirus/COVID-19? No / Unsure 03/01/2022 11:00 AM PAEDODONTIST documented as of this encounter Miscellaneous Notes * Telephone Encounter - Bailey Cadet RN - 03/05/2022 8:19 AM PAEDODONTIST Pt scheduled for 2 doses Injectafer and OV/labs in 3 months. ODONTIST * Telephone Encounter - Fritz Pena RN - 03/04/2022 4:44 PM CST Please see messages below. ODONTIST * Telephone Encounter - Fritz Pena RN - 03/04/2022 4:44 PM CST Images from the original note were not included. Shyann Escoto RN Beasley, Kelsey D, SCHEME TECHNICIAN, ELEMENTARY ASSISTANT TEACHER; [facility] Cleaning And Washing Equipment Operator Pool; [facility] Clinical Pharmacist Pool 2 hours ago (2:43 PM) KR Ok for Injectafer Aaron Nye, [facility] You; Sindi Qiu, SCHEME TECHNICIAN, ELEMENTARY ASSISTANT TEACHER; Kev Moser MD; Klaudia Barnard RN 3 hours ago (1:42 PM) BW Treatment plan is ready for review. Injectafer 750 mg x 2 doses. Thank you, Loi ODONTIST * Telephone Encounter - Sindi Qiu, SCHEME TECHNICIAN, ELEMENTARY ASSISTANT TEACHER - 03/04/2022 1:14 PM PAEDODONTIST Please set patient up for 2 doses of injectafer. Then set up a f/u and labs in 3 months. ODONTIST documented in this encounter Plan of Treatment Upcoming Encounters Date Type Department Care Team (Late st Contact Info) Description 04/07/2024 11:10 AM PAEDODONTIST Lab [facility] [address] [phone] Lab, [facility] 04/07/2024 11:15 AM PAEDODONTIST Clinical Support [facility] [address] [phone] Nurse, [facility] 05/12/2024 11:00 AM PAEDODONTIST Lab [facility] [address] [address] Lab, [facility] 05/12/2024 11:15 AM PAEDODONTIST Office Visit [facility] [address] [address] Kev Moser MD [address] [place] [phone] 05/12/2024 11:30 AM PAEDODONTIST Clinical Support [facility] [address] [phone] Nurse, [facility] documented as of this encounter Results * IRON W/ IRON BINDING CAPACITY [place] (06/05/2022 12:53 PM PAEDODONTIST) IRON 75 50 - 212 ug/dL [facility] UIBC 192 155 - 355 ug/dL [facility] TIBC 267 261 - 478 ug/dl [facility] % Saturation 28 20 - 50 % [facility] 06/05/2022 12:5 3 PM PAEDODONTIST Narrative [facility] - 06/05/2022 1:56 PM PAEDODONTIST Release to patient->Immediate Sindi Qiu APRN, ELEMENTARY ASSISTANT TEACHER LAB SEND OUTS Final Result [facility] [address] [address] [phone] * (ABNORMAL) FERRITIN (06/05/2022 12:53 PM PAEDODONTIST) Ferritin 517(H) 24 - 336 ng/mL [facility] Blood 06/05/2022 12:5 3 PM PAEDODONTIST Narrative [facility] - 06/06/2022 2:11 PM PAEDODONTIST Release to patient->Immediate Sindi Qiu APRN, ELEMENTARY ASSISTANT TEACHER CHEMISTRY ORDERABLES Final Result [facility] COAGUL[facility] [address] [place] [address], * (ABNORMAL) CMP (COMPREHENSIVE METABOLIC PANEL) (06/05/2022 12:53 PM PAEDODONTIST) Glucose 72 70 - 105 mg/dL [facility] Blood Urea Nitrogen 40(H) 7 - 25 mg/dL [facility] Creatinine 2.5(H) 0.7 - 1.3 mg/dL [facility] Sodium 140 136 - 145 mEq/L [facility] Potassium 4.7 3.5 - 5.1 mEq/L [facility] Chloride 105 98 - 107 mEq/L [facility] Bicarbonate 26 21 - 31 mEq/L [facility] Total Bilirubin 0.7 0.3 - 1.0 mg/dL [facility] Alk. Phosphatase 105(H) 34 - 104 U/L [facility] Aspartate Aminotransferase 13 13 - 39 U/L [facility] Alanine Aminotransferase 17 7 - 52 U/L [facility] Total Protein 7.1 6.4 - 8.9 g/dL [facility] Albumin 4.4 3.5 - 5.7 g/dL [facility] Calcium 9.0 8.6 - 10.3 mg/dL [facility] Anion Gap 13.7 7.0 - 15.0 mEq/L [facility] Globulin 2.7 2.0 - 3.5 g/dL [facility] EGFR 27(L) >60 ml/min/1. 73m2 [facility] Comment: This eGFR is calculated using 2020 CKD-EPI Creatinine equation without race modifier based on the NKF-ASN task force recommendations Blood 06/05/2022 12:5 3 PM PAEDODONTIST Narrative [facility] - 06/05/2022 1:56 PM PAEDODONTIST Release to patient->Immediate IS THE PATIENT REQUIRED TO BE FASTING FOR 8 HOURS?->No Sindi Qiu SCHEME TECHNICIAN, ELEMENTARY ASSISTANT TEACHER CHEMISTRY ORDERABLES Final Result [facility] [address] [place] [address], * (ABNORMAL) COMPLETE BLOOD COUNT (CBC) WITH DIFF (06/05/2022 12:53 PM PAEDODONTIST) WBC 6.6 4.0 - 10.0 10*3/uL [facility] HGB 12.2(L) 13.7 - 17.5 g/dL [facility] HCT 37.0(L) 40.1 - 51.0 % [facility] PLT 142(L) 163 - 369 10*3/uL [facility] MPV 9.5 9.4 - 12.4 fL [facility] RBC 4.09(L) 4.63 - 6.08 10*6/uL [facility] MCV 91 79 - 95 fL [facility] MCH 29.8 25.6 - 32.2 pg [facility] MCHC 33.0 32.2 - 36.5 g/dL [facility] RDW 15.2(H) 11.6 - 14.4 % [facility] Absolute Neutrophil Count 5,044 cells/uL [facility] Absolute Seg Count 5,044 1,440 - 6,600 cells/uL [facility] Absolute Lymph Count 852 760 - 4,000 cells/uL [facility] Absolute [place] Count 459 160 - 1,200 cells/uL [facility] Absolute Eos Count 197 0 - 300 cells/uL [facility] Segmented Neutrophils 77(H) 36 - 66 % [facility] Lymphocytes 13(L) 19 - 40 % [facility] Monocytes 7 4 - 12 % [facility] Eosinophils 3 0 - 3 % [facility] WBC Estimate Normal [facility] Platelet Estimate Low [facility] RBC Morphology Abnormal [facility] Anisocytosis 1+ [facility] Blood 06/05/2022 12:5 3 PM PAEDODONTIST Narrative [facility] - 06/05/2022 2:37 PM PAEDODONTIST Release to patient->Immediate Sindi Qiu SCHEME TECHNICIAN, ELEMENTARY ASSISTANT TEACHER HEMATOLOGY ORDERABLES Final Result [facility] [place] [address] [place] [address], documented in this encounter Visit Diagnoses Diagnosis 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 Iron deficiency anemia due to sideropenic dysphagia documented in this encounter Additional Health Concerns Assessment Noted Time PHQ-9 Depression Total Score: 0 11/25/19 21 11:34 AM CDT documented as of this encounter Care Teams Planning Director Relationship Specialty Start Date End Date Scott Oneill MD PCP - General Internal Medicine 04/29/17 Kev Prince DO Gastroenterology 04/29/17 12/09/22 Tavo Mishra MD [address] [place] [address] Internal Medicine 04/29/17 Gilmer Barnard MD [address] [address] Consulting Physician Internal Medicine 08/28/17 9 4 Kev Moser MD [address] [place] [address] Consulting Physician Oncology 02/09/20 documented as of this encounter
--- OUTSIDE RECORDS SUMMARY | 2024-04-04 01:29 | XMS_ITS | Encounter Summary ---
Author Organization [facility] Care Team Providers Care Sheeter Operator Name Role Phone Scott Oneill MD Primary Care Provider Kev Prince DO Unavailable [phone] Tavo Mishra MD Unavailable [phone] Gilmer Barnard MD Unavailable [phone] Kev Moser MD Unavailable [phone] Encounter Details Date Type Department Care Team (Latest Contact Info) Description 07/31/2022 Travel Social History Tobacco Use Types Packs/Day [...] on file Legal Sex Male 3:42 PM BONDING MACHINE TENDER Gender Identity Not on file Sexual Orientation [...] st Contact Info) Description 04/07/2024 11:10 AM BONDING MACHINE TENDER Lab [facility] [address] [address] Lab, [facility] 04/07/2024 11:15 AM BONDING MACHINE TENDER Clinical Support [facility] [address] [address] Nurse, [facility] 05/12/2024 11:00 AM BONDING MACHINE TENDER Lab [facility] [address] [address] Lab, [facility] 05/12/2024 11:15 AM BONDING MACHINE TENDER Office Visit [facility] [address] [phone] Kev Moser MD [address] [place] [phone] 05/12/2024 11:30 AM BONDING MACHINE TENDER Clinical Support [facility] [address] [phone] Nurse, [facility] documented as of this encounter Visit Diagnoses Not on filedocumented in this encounter Additional Health Concerns Assessment Noted Time PHQ-9 Depression Total Score: 0 11/25/19 21 11:34 AM CDT documented as of this encounter Care Teams Sheeter Operator Relationship Specialty Start Date End Date Scott Oneill MD PCP - General Internal Medicine 04/29/17 Kev Prince DO Gastroenterology 04/29/17 12/09/22 Tavo Mishra MD [address] [facility] [address] [place] [phone] Internal Medicine 04/29/17 Gilmer Barnard MD [address] [phone] Consulting Physician Internal Medicine 08/28/17 4 Kev Moser MD [address] [place] [address] Consulting Physician Oncology 02/09/20 documented as of this encounter
--- OUTSIDE RECORDS SUMMARY | 2024-04-04 01:29 | XMS_ITS | Encounter Summary ---
Author Organization [facility] Address [address] [place] [address] Phone Care Team Providers Care Manufacturing Technician Name Role Phone Scott Oneill MD Primary Care Provider [phone] Kev Prince DO Unavailable [phone] Tavo Mishra MD Unavailable [phone] Gilmer Barnard MD Unavailable [phone] Kev Moser MD Unavailable [phone] Encounter Details Date Type Department Care Team (Late st Contact Info) Description 12/04/2022 11:15 AM CDT Lab [facility] [address] [phone] Lab, [facility]c [facility] Vitamin B 12 deficiency; Iron deficiency anemia [...] on file Legal Sex Male 3:42 PM LIBRARY SPECIALIST Gender Identity Not on file Sexual [...] st Contact Info) Description 04/07/2024 11:10 AM LIBRARY SPECIALIST Lab [facility] [address] [phone] Lab, [facility] 04/07/2024 11:15 AM LIBRARY SPECIALIST Clinical Support [facility] [address] [phone] Nurse, [facility] 05/12/2024 11:00 AM LIBRARY SPECIALIST Lab [facility] [address] [phone] Lab, [facility] 05/12/2024 11:15 AM LIBRARY SPECIALIST Office Visit [facility] [address] [phone] Kev Moser MD [address] [place] [phone] 05/12/2024 11:30 AM LIBRARY SPECIALIST Clinical Support [facility] [address] [phone] Nurse, [facility] documented as of this encounter Procedures Procedure Name Priority Date/Time Associated Diagnosis Comments IRON W/ IRON BINDING CAPACITY [place] Routine 12/04/2022 10:42 AM CDT Vitamin B 12 deficiency Iron deficiency anemia due to sideropenic dysphagia Stage 3a chronic kidney disease (HCC) VITAMIN B12 Routine 12/04/2022 10:42 AM CDT Vitamin B 12 deficiency Iron deficiency anemia due to sideropenic dysphagia Stage 3a chronic kidney disease (HCC) FOLIC ACID (FOLATE) Routine 12/04/2022 1 0:42 AM CDT Vitamin B 12 deficiency Iron deficiency anemia due to sideropenic dysphagia Stage 3a chronic kidney disease (HCC) FERRITIN Routine 12/04/2022 10:42 AM CDT Vitamin B 12 deficiency Iron deficiency anemia due to sideropenic dysphagia Stage 3a chronic kidney disease (HCC) CMP (COMPREHENSIVE METABOLIC PANEL) Routine 12/04/2022 10:42 AM CDT Vitamin B 12 deficiency Iron deficiency anemia due to sideropenic dysphagia Stage 3a chronic kidney disease (HCC) COMPLETE BLOOD COUNT (CBC) WITH DIFF Routine 12/04/2022 10:42 AM CDT Vitamin B 12 deficiency Iron deficiency anemia due to sideropenic dysphagia Stage 3a chronic kidney disease (HCC) documented in this encounter Results * FOLIC ACID (FOLATE) (12/04/2022 10:42 AM CDT) Folate 9.80 >=5.90 ng/mL [facility] CONTENT MANAGEMENT CONSULTANT [facility] Blood 12/04/2022 10:4 2 AM CDT Narrative [facility] CONTENT MANAGEMENT CONSULTANT [facility] - 12/05/2022 2:38 PM CDT Release to patient->Immediate IS THE PATIENT REQUIRED TO BE FASTING FOR 12 HOURS?->No us Imelda Espinal PAC CHEMISTRY ORDERABLES Final Result [facility] CONTENT MANAGEMENT CONSULTANT [facility] [place] [address], * (ABNORMAL) FERRITIN (12/04/2022 10:42 AM CDT) Ferritin 414(H) 24 - 336 ng/mL [facility]NAGEMENT [facility] Blood 12/04/2022 10:4 2 AM CDT [facility] CONTENT MANAGEMENT CONSULTANTCHI [facility] - 12/05/2022 2:38 PM CDT Release to patient->Immediate Imelda Espinal PAC CHEMISTRY ORDERABLES Final Result Performing Organization Address [facility]/ZIP Co de Phone Number [facility]ENT MANAGEMENT CONSULTANT[facility] [address] [place] [address], [place] [phone] * (ABNORMAL) IRON W/ IRON BINDING CAPACITY [place] (12/04/2022 10:42 AM CDT) IRON 57 50 - 212 ug/dL [facility] UIBC 182 155 - 355 ug/dL [facility] TIBC 239(L) 261 - 478 ug/dl [facility] % Saturation 24 20 - 50 % [facility] CONTENT MANAGEMENT CONSULTANTCHI [facility] Blood 12/04/2022 10:4 2 AM CDT [facility] - 12/04/2022 11:59 AM CDT Release to patient->Immediate Imelda Espinal PAC LAB SEND OUTS Final Resu lt Performing Organization Address [facility]/ZIP Co de Phone Number [facility] CONTENT MANAGEMENT CONSULTANTCHI [facility] [address] [place] [address], * (ABNORMAL) CMP (COMPREHENSIVE METABOLIC PANEL) (12/04/2022 10:42 AM CDT) Glucose 77 70 - 105 mg/dL [facility] Blood Urea Nitrogen 32(H) 7 - 25 mg/dL [facility] Creatinine 2.1(H) 0.7 - 1.3 mg/dL [facility] Sodium 139 136 - 145 mEq/L [facility] Potassium 5.0 3.5 - 5.1 mEq/L [facility] Chloride 107 98 - 107 mEq/L [facility] Bicarbonate 24 21 - 31 mEq/L [facility] Total Bilirubin 0.8 0.3 - 1.0 mg/dL [facility] Alk. Phosphatase 105(H) 34 - 104 U/L [facility] Aspartate Aminotransferase 10(L) 13 - 39 U/L [facility] Alanine Aminotransferase 12 7 - 52 U/L [facility] Total Protein 6.6 6.4 - 8.9 g/dL [facility] Albumin 4.1 3.5 - 5.7 g/dL [facility] Calcium 8.3(L) 8.6 - 10.3 mg/dL [facility] Anion Gap 13.0 7.0 - 15.0 mEq/L [facility] Globulin 2.5 2.0 - 3.5 g/dL [facility] EGFR 33(L) >60 ml/min/1. 73m2 [facility] Comment: This eGFR is calculated using 2020 CKD-EPI Creatinine equation without race modifier based on the NKF-ASN task force recommendations Blood 12/04/2022 10:4 2 AM CDT Narrative [facility] - 12/04/2022 11:59 AM CDT Release to patient->Immediate IS THE PATIENT REQUIRED TO BE FASTING FOR 8 HOURS?->No us Imelda Espinal PAC CHEMISTRY ORDERABLES Final Result [facility] CONTENT MANAGEMENT CONSULTANT [facility] [place] [place] [address], * (ABNORMAL) COMPLETE BLOOD COUNT (CBC) WITH DIFF (12/04/2022 10:42 AM CDT) WBC 6.5 4.0 - 10.0 10*3/uL [facility] HGB 11.6(L) 13.7 - 17.5 g/dL [facility] HCT 35.7(L) 40.1 - 51.0 % [facility] PLT 133(L) 163 - 369 10*3/uL [facility] CONTENT MANAGEMENT CONSULTANT [facility] MPV 9.2(L) 9.4 - 12.4 fL [facility] CONTENT MANAGEMENT CONSULTANT [facility] RBC 3.82(L) 4.63 - 6.08 10*6/uL [facility] CONTENT MANAGEMENT CONSULTANT [facility] MCV 94 79 - 95 fL [facility] CONTENT MANAGEMENT CONSULTANT [facility] MCH 30.4 25.6 - 32.2 pg [facility] CONTENT MANAGEMENT CONSULTANT [facility] MCHC 32.5 32.2 - 36.5 g/dL [facility] CONTENT MANAGEMENT CONSULTANT [facility] RDW 13.6 11.6 - 14.4 % [facility] CONTENT MANAGEMENT CONSULTANT [facility] Absolute Neutrophil Count 4,940 cells/uL [facility] ER SPECIALISTS [facility] Absolute Seg Count 4,940 1,440 - 6,600 cells/uL [facility] CONTENT MANAGEMENT CONSULTANT [facility] Absolute Lymph Count 910 760 - 4,000 cells/uL [facility] CONTENT MANAGEMENT CONSULTANT [facility] Absolute Shannon Count 325 160 - 1,200 cells/uL [facility] CONTENT MANAGEMENT CONSULTANT [facility] Absolute Eos Count 325(H) 0 - 300 cells/uL [facility] CONTENT MANAGEMENT CONSULTANT [facility] Segmented Neutrophils 76(H) 36 - 66 % [facility] CONTENT MANAGEMENT CONSULTANT [facility] Lymphocytes 14(L) 19 - 40 % [facility] C ENTER [facility] Monocytes 5 4 - 12 % CANCER [place] [facility]ISTS [facility] Eosinophils 5(H) 0 - 3 % [facility] C ENTER [facility]ISTS [facility] WBC Estimate Normal [facility] CONTENT MANAGEMENT CONSULTANT [facility] Platelet Estimate Low [facility] CONTENT MANAGEMENT CONSULTANT [facility] RBC Morphology Normal CANCE R CONTENT MANAGEMENT CONSULTANT [facility] Blood 12/04/2022 10:4 2 AM CDT Narrative [facility] CONTENT MANAGEMENT CONSULTANT [facility] - 12/04/2022 1:57 PM CDT Release to patient->Immediate us Imelda Espinal PAC HEMATOLOGY ORDERABLES Devorah l Result [facility] CONTENT MANAGEMENT CONSULTANT [facility] [place] [address], * VITAMIN B12 (12/04/2022 10:42 AM CDT) Vitamin B12 455 180 - 914 pg/mL [facility] CONTENT MANAGEMENT CONSULTANT [facility] Blood 12/04/2022 10:4 2 AM CDT Narrative [facility] CONTENT MANAGEMENT CONSULTANT OF [facility] - 12/05/2022 2:38 PM CDT Release to patient->Immediate Imelda Espinal PAC CHEMISTRY ORDERABLES Final Result [facility] CONTENT MANAGEMENT CONSULTANT [facility] [address] [place] [address], documented in this encounter Visit Diagnoses Diagnosis Vitamin B 12 deficiency Other B-complex deficiencies Iron deficiency anemia due to sideropenic dysphagia Stage 3a chronic kidney disease (HCC) documented in this encounter Additional Health Concerns Assessment Noted Time PHQ-9 Depression Total Score: 0 11/25/19 21 11:34 AM CDT documented as of this encounter Care Teams Manufacturing Technician Relationship Specialty Start Date End Date Scott Oneill MD PCP - General Internal Medicine 04/29/17 Kev Prince DO Gastroenterology 04/29/17 12/09/22 Tavo Mishra MD [address] [phone] Internal Medicine 04/29/17 Gilmer Barnard MD [address] [facility] [address] [place] [address] Consulting Physician Internal Medicine 08/28/17 4 Kev Moser MD [address] [place] [phone] Consulting Physician Oncology 02/09/20 documented as of this encounter
--- OUTSIDE RECORDS SUMMARY | 2024-04-04 01:29 | XMS_ITS | Encounter Summary ---
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 No / Unsure 08/29/2022 12:04 PM CDT documented as of this encounter Plan of Treatment Upcoming Encounters Date Type Department Care Team (Late st Contact Info) Description 04/07/2024 11:10 AM POWER SHOVEL ENGINEER Lab [facility] [address] [address] Lab, [facility] 04/07/2024 11:15 AM POWER SHOVEL ENGINEER Clinical Support [facility] [address] [address] Nurse, [facility] 05/12/2024 11:00 AM POWER SHOVEL ENGINEER Lab [facility] [address] [address] Lab, [facility] 05/12/2024 11:15 AM POWER SHOVEL ENGINEER Office Visit [facility] [address] [phone] Kev Moser MD [address] [place] [phone] 05/12/2024 11:30 AM POWER SHOVEL ENGINEER Clinical Support [facility] [address] [address] Nurse, [facility] documented as of this encounter Visit Diagnoses Not on filedocumented in this encounter Additional Health Concerns Assessment Noted Time PHQ-9 Depression Total Score: 0 11/25/19 21 11:34 AM CDT documented as of this encounter Care Teams Snuff Blender Relationship Specialty Start Date End Date Scott Oneill MD PCP - General Internal Medicine 04/29/17 Kev Prince DO Gastroenterology 04/29/17 12/09/22 Tavo Mishra MD [address] [facility] [address] [place] [address] [phone] Internal Medicine 04/29/17 Gilmer Barnard MD [address] [phone] Consulting Physician Internal Medicine 08/28/17 4 Kev Moser MD [address] [place] [address] Consulting Physician Oncology 02/09/20 documented as of this encounter
--- OUTSIDE RECORDS SUMMARY | 2024-04-04 01:29 | XMS_ITS | Encounter Summary ---
Author Organization [employer] Care Team Providers Care Compugraph Operator Name Role Phone Scott Oneill MD Primary Care Provider [phone] Kev Prince DO Unavailable [phone] Tavo Mishra MD Unavailable [phone] Gilmer Barnard MD Unavailable [phone] Kev Moser MD Unavailable [phone] Encounter Details Date Type Department Care Team (Latest Contact Info) Description 03/29/2022 Travel Social History Tobacco Use Types Packs/Day [...] file Legal Sex Male 3:42 PM SECURITY GUARD DISPATCHER Gender Identity Not on file Sexual Orientation Not on file COVID-19 Exposure Response Date Recorded In the last 10 days, have yo u been in contact with someone who was confirmed or suspected to have Coronavirus/COVID-19? No / Unsure 03/29/2022 7:49 AM SECURITY GUARD DISPATCHER documented as of this encounter Plan of Treatment Upcoming Encounters Date Type Department Care Team (Late st Contact Info) Description 04/07/2024 11:10 AM SECURITY GUARD DISPATCHER Lab [facility] [address] [address] Lab, [facility] 04/07/2024 11:15 AM SECURITY GUARD DISPATCHER Clinical Support [facility] [address] [address] Nurse, [facility] 05/12/2024 11:00 AM SECURITY GUARD DISPATCHER Lab [facility] [address] [address] Lab, [facility] 05/12/2024 11:15 AM SECURITY GUARD DISPATCHER Office [facility] [address] [phone] Kev Moser MD [address] [place] [phone] 05/12/2024 11:30 AM SECURITY GUARD DISPATCHER Clinical Support [facility] [address] [phone] Nurse, [facility] documented as of this encounter Visit Diagnoses Not on filedocumented in this encounter Additional Health Concerns Assessment Noted Time PHQ-9 Depression Total Score: 0 11/25/19 21 11:34 AM CDT documented as of this encounter Care Teams Compugraph Operator Relationship Specialty Start Date End Date Scott Oneill MD PCP - General Internal Medicine 04/29/17 Kev Prince DO Gastroenterology 04/29/17 12/09/22 Tavo Mishra MD [address] [facility] [address] [place] [address] [phone] Internal Medicine 04/29/17 Gilmer Barnard MD [address] [phone] Consulting Physician Internal Medicine 08/28/17 4 Kev Moser MD [address] [place] [address] Consulting Physician Oncology 02/09/20 documented as of this encounter
--- OUTSIDE RECORDS SUMMARY | 2024-04-04 01:29 | XMS_ITS | Encounter Summary ---
Author Organization [employer] Care Team Providers Care Election Watcher Name Role Phone Scott Oneill MD Primary Care Provider [phone] Kev Prince DO Unavailable [phone] Tavo Mishra MD Unavailable [phone] Gilmer Barnard MD Unavailable [phone] Kev Moser MD Unavailable [phone] Encounter Details Date Type Department Care Team (Latest Contact Info) Description 06/05/2022 Travel Social History Tobacco Use Types Packs/Day [...] on file Legal Sex Male 3:42 PM EVP AND CHIEF OPERATING OFFICER Gender Identity Not on file Sexual Orientation Not on file COVID-19 Exposure Response Date Recorded In the last 10 days, have yo u been in contact with someone who was confirmed or suspected to have Coronavirus/COVID-19? No / Unsure 06/05/2022 12:50 PM EVP AND CHIEF OPERATING OFFICER documented as of this encounter Plan of Treatment Upcoming Encounters Date Type Department Care Team (Late st Contact Info) Description 04/07/2024 11:10 AM EVP AND CHIEF OPERATING OFFICER Lab [facility] [address] [address] Lab, [facility] 04/07/2024 11:15 AM EVP AND CHIEF OPERATING OFFICER Clinical Support [facility] [address] [address] Nurse, [facility] 05/12/2024 11:00 AM EVP AND CHIEF OPERATING OFFICER Lab [facility] [address] [address] Lab, [facility] 05/12/2024 11:15 AM EVP AND CHIEF OPERATING OFFICER Office Visit [facility] [address] [phone] Kev Moser MD [address] [place] [phone] 05/12/2024 11:30 AM EVP AND CHIEF OPERATING OFFICER Clinical Support [facility] [address] [phone] Nurse, [facility] documented as of this encounter Visit Diagnoses Not on filedocumented in this encounter Additional Health Concerns Assessment Noted Time PHQ-9 Depression Total Score: 0 11/25/19 21 11:34 AM CDT documented as of this encounter Care Teams Election Watcher Relationship Specialty Start Date End Date Scott Oneill MD PCP - General Internal Medicine 04/29/17 Kev Prince DO Gastroenterology 04/29/17 12/09/22 Tavo Mishra MD [address] [facility] [address] [place] [address] [phone] Internal Medicine 04/29/17 Gilmer Barnard MD [address] [phone] Consulting Physician Internal Medicine 08/28/17 4 Kev Moser MD [address] [place] [address] Consulting Physician Oncology 02/09/20 documented as of this encounter
--- OUTSIDE RECORDS SUMMARY | 2024-04-04 01:29 | XMS_ITS | Encounter Summary ---
Author Organization [facility] Address [address] [place] [address] Phone Care Team Providers Care Library Attendant Name Role Phone Scott Oneill MD Primary Care Provider Kev Prince DO Unavailable [phone] Tavo Mishra MD Unavailable [phone] Gilmer Barnard MD Unavailable [phone] Kev Moser MD Unavailable [phone] Reason for Visit * Reason Comments Therapeutic Injection * Episode Based Medications (Routine) - Authorized Specialty Diagnoses / Procedures Referred By Contamy t Referred To Contact Diagnoses Vitamin B 12 deficiency Procedures VITAMIN B12 INJ RANGE DOSE 1-1,000 MCG Kev Moser MD [address] [place] [phone] Phone: tel: fax: [facility] [address] [address] Phone: tel: fax: Referral ID Status Reason Start Date Expiration Date V isits Requested Visits Authorized [id number] Authorized 03/06/2022 03/30/2027 1 1 Encounter Details Date Type Department Care Team (Latest Contact Info) Description 10/14/2022 8:15 AM CDT Clinical Support [facility] [address] [address] Nurse, [facility] Vitamin B 12 deficiency [...] on file Legal Sex Male 3:42 PM AS400 CONSULTANT Gender Identity Not on file Sexual Orientation Not on file COVID-19 Exposure Response Date Recorded In the last 10 days, have yo u been in contact with someone who was confirmed or suspected to have Coronavirus/COVID-19? No / Unsure 10/14/2022 12:04 PM CDT documented as of this encounter Progress Notes * Wen Hines RN - 10/14/2022 8:15 AM CDT Patient in for B12 injection. Tolerated well to right arm. Band-aid applied. No change in patient performance status since arrival to clinic. Patient discharged ambulatory unaccompanied. * Fritz Pena RN - 10/14/2022 8:15 AM CDT Eliquis 5mg sample dispense Take one tablet by mouth twice daily. 4 boxes given (56 tabs) LOT#:??[id number] EXP:??07/23 documented in this encounter Plan of Treatment Upcoming Encounters Date Type Department Care Team (Late st Contact Info) Description 04/07/2024 11:10 AM AS400 CONSULTANT Lab [facility] [address] [address] Lab, [facility] 04/07/2024 11:15 AM AS400 CONSULTANT Clinical Support [facility] [address] [phone] Nurse, [facility] 05/12/2024 11:00 AM AS400 CONSULTANT Lab [facility] [address] [phone] Lab, [facility] 05/12/2024 11:15 AM AS400 CONSULTANT Office Visit [facility] [address] [phone] Kev Moser MD [address] [place] [phone] 05/12/2024 11:30 AM AS400 CONSULTANT Clinical Support [facility] [address] [phone] Nurse, [facility] documented as of this encounter Visit Diagnoses Diagnosis Vitamin B 12 deficiency- Primary Other B-complex deficiencies Other autoimmune hemolytic anemia (HCC) documented in this encounter Administered Medications Inactive Administered Medications - up to 3 most recent administrations Medication Order MAR Action Action Date Dose Rate Site cyanocobalamin (VITAMIN B-12) injection 1,000 mcg 1,000 mcg, Subcutaneous, ONCE, 1 dose, On Fri10/14/22 at 1230, To be given 1 week prior to Chemotherapy. Route IM or SUBQ.Indications:Vitam in B 12 deficiency Given 10/14/2022 12:10 PM CDT 1,000 mcg Right Lateral Upper Arm documented in this encounter Additional Health Concerns Assessment Noted Time PHQ-9 Depression Total Score: 0 11/25/19 21 11:34 AM CDT documented as of this encounter Care Teams Library Attendant Relationship Specialty Start Date End Date Scott Oneill MD PCP - General Internal Medicine 04/29/17 Kev Prince DO Gastroenterology 04/29/17 12/09/22 Tavo Mishra MD [address] [place] [address] Internal Medicine 04/29/17 Gilmer Barnard MD [address] [facility] [address] [place] [address] Consulting Physician Internal Medicine 08/28/17 4 Kev Moser MD [address] [place] [phone] Consulting Physician Oncology 02/09/20 documented as of this encounter
--- OUTSIDE RECORDS SUMMARY | 2024-04-04 01:29 | XMS_ITS | Encounter Summary ---
Author Organization [facility] Address [address] [place] [address] Phone Care Team Providers Care Police Inspector Name Role Phone Scott Oneill MD Primary Care Provider [phone] Kev Prince DO Unavailable [phone] Tavo Mishra MD Unavailable [phone] Gilmer Barnard MD Unavailable [phone] Kev Moser MD Unavailable [phone] Reason for Visit * Reason Comments Other Eliquis sample dispe nse Encounter Details Date Type Department Care Team (Latest Contact Info) Description 09/24/2022 2:00 PM CDT Clinical Support [facility] [address] [address] Nurse, [facility] Other autoimmune hemolytic anemia (HCC) [...] Legal Sex Male 3:42 PM DIRECTOR OF RESEARCH CENTER Gender Identity Not on file Sexual Orientation Not on file COVID-19 Exposure Response Date Recorded In the last 10 days, have yo u been in contact with someone who was confirmed or suspected to have Coronavirus/COVID-19? No / Unsure 09/24/2022 1:55 PM CDT documented as of this encounter Progress Notes * Fritz Pena, RN - 09/24/2022 2:00 PM CDT Eliquis 5mg sample dispense Take one tablet by mouth twice daily. 4 boxes given (56 tabs) LOT#:??[id number] EXP:??07/23 documented in this encounter Plan of Treatment Upcoming Encounters Date Type Department Care Team (Late st Contact Info) Description 04/07/2024 11:10 AM DIRECTOR OF RESEARCH CENTER Lab [facility] [address] [phone] Lab, [facility] 04/07/2024 11:15 AM DIRECTOR OF RESEARCH CENTER Clinical Support [facility] [address] [phone] Nurse, [facility] 05/12/2024 11:00 AM DIRECTOR OF RESEARCH CENTER Lab [facility] [address] [address] Lab, [facility] 05/12/2024 11:15 AM DIRECTOR OF RESEARCH CENTER Office Visit [facility] [address] [phone] Kev Moser MD [address] [place] [phone] 05/12/2024 11:30 AM DIRECTOR OF RESEARCH CENTER Clinical Support [facility] [address] [phone] Nurse, [facility] documented as of this encounter Visit Diagnoses Diagnosis Other autoimmune hemolytic anemia (HCC) documented in this encounter Additional Health Concerns Assessment Noted Time PHQ-9 Depression Total Score: 0 11/25/19 21 11:34 AM CDT documented as of this encounter Care Teams Police Inspector Relationship Specialty Start Date End Date Scott Oneill MD PCP - General Internal Medicine 04/29/17 Kev Prince DO Gastroenterology 04/29/17 12/09/22 Tavo Mishra MD [address] [place] [address] [phone] Internal Medicine 04/29/17 Gilmer Barnard MD [address] [facility] [address] [place] [address] Consulting Physician Internal Medicine 08/28/17 4 Kev Moser MD [address] [place] [phone] Consulting Physician Oncology 02/09/20 documented as of this encounter
--- OUTSIDE RECORDS SUMMARY | 2024-04-04 01:29 | XMS_ITS | Encounter Summary ---
Author Organization [facility] Address [address] [place] [address] Phone Care Team Providers Care Hoop Expander Name Role Phone Scott Oneill MD Primary Care Provider Kev Prince DO Unavailable [phone] Tavo Mishra MD Unavailable [phone] Gilmer Barnard MD Unavailable [phone] Kev Moser MD Unavailable [phone] Reason for Visit * Reason Comments Other Eliquis sample dispe nse Encounter Details Date Type Department Care Team (Latest Contact Info) Description 07/31/2022 12:00 PM CDT Clinical Support [facility] [address] [address] Nurse, [facility] Other autoimmune hemolytic anemia (HCC) Social [...] on file 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 No / Unsure 07/31/2022 1:17 PM CDT documented as of this encounter Progress Notes * Fritz Pena, RN - 07/31/2022 12:00 PM CDT Eliquis 5mg sample dispense Take one tablet by mouth twice daily. 4 boxes given (56 tabs) LOT#:??[id number] EXP:??06/22 documented in this encounter Plan of Treatment Upcoming Encounters Date Type Department Care Team (Late st Contact Info) Description 04/07/2024 11:10 AM BREAK AND LOAD OPERATOR Lab [facility] [address] [address] Lab, [facility] 04/07/2024 11:15 AM BREAK AND LOAD OPERATOR Clinical Support [facility] [address] [phone] Nurse, [facility] 05/12/2024 11:00 AM BREAK AND LOAD OPERATOR Lab [facility] [address] [address] Lab, [facility] 05/12/2024 11:15 AM BREAK AND LOAD OPERATOR Office [facility] [address] [phone] Kev Moser MD [address] [place] [phone] 05/12/2024 11:30 AM BREAK AND LOAD OPERATOR Clinical Support [facility] [address] [phone] Nurse, [facility] documented as of this encounter Visit Diagnoses Diagnosis Other autoimmune hemolytic anemia (HCC) documented in this encounter Additional Health Concerns Assessment Noted Time PHQ-9 Depression Total Score: 0 11/25/19 21 11:34 AM CDT documented as of this encounter Care Teams Hoop Expander Relationship Specialty Start Date End Date Scott Oneill MD PCP - General Internal Medicine 04/29/17 Kev Prince DO Gastroenterology 04/29/17 12/09/22 Tavo Mishra MD [address] [place] [address] [phone] Internal Medicine 04/29/17 Gilmer Barnard MD [address] [facility] [address] [place] [address] Consulting Physician Internal Medicine 08/28/17 4 Kev Moser MD [address] [place] [phone] Consulting Physician Oncology 02/09/20 documented as of this encounter
--- OUTSIDE RECORDS SUMMARY | 2024-04-04 01:29 | XMS_ITS | Encounter Summary ---
Author Organization [facility] Address [address] [place] [address] Phone Care Team Providers Care Sorority Mother Name Role Phone Scott Oneill MD Primary Care Provider [phone] Kev Prince DO Unavailable [phone] Tavo Mishra MD Unavailable [phone] Gilmer Barnard MD Unavailable [phone] Kev Moser MD Unavailable [phone] Reason for Visit * Reason Comments Other Iron/B12 * Episode Based Medications (Routine) - Authorized Specialty Diagnoses / Procedures Referred By Rocky blancas Referred To Contact Diagnoses Iron deficiency anemia due to sideropenic dysphagia Procedures INJ FERRIC CARBOXYMALTOS 1MG Nj Rodriguez DO [address] [place] [phone] Phone: tel: fax: [facility] [address] [address] Phone: tel: fax: Referral ID Status Reason Start Date Expiration Date V isits Requested Visits Authorized [id number] Authorized 03/04/2022 03/30/2024 1 1 Encounter Details Date Type Department Care Team (Latest Contact Info) Description 03/22/2022 8:00 AM REGISTERED NURSE BEHAVIORAL HEALTH Clinical Support [facility] [address] [phone] Nurse, [facility] 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); Vitamin B 12 deficiency Social [...] on file Legal Sex Male 3:42 PM REGISTERED NURSE BEHAVIORAL HEALTH Gender Identity Not on file Sexual Orientation Not on file COVID-19 Exposure Response Date Recorded In the last 10 days, have yo u been in contact with someone who was confirmed or suspected to have Coronavirus/COVID-19? No / Unsure 03/22/2022 7:35 AM REGISTERED NURSE BEHAVIORAL HEALTH documented as of this encounter Progress Notes * Josephine Aleman RN - 03/22/2022 8:00 AM CST Teaching done, written information given, and consent signed for Injectafer. Patient was given written drug information (ONS/HOPA/NCODA/ACC approved). Side Effects Instructed on side effects including but not limited to hypersensitivity reaction, low blood phosphorus, hypertension, nausea, and dizziness. Discussed how to manage these side effects and when to notify the physician/clinic. Needs Assessment Nurse assessed patient's learning needs throughout session. Patient's needs, abilities and readiness to learn addressed including preferences to verbal and written information. Questions answered. Consent Informed consent presented, reviewed and signed. Total face to face time spent teaching was 10 minutes. Patient tolerated Injectafer infusion well with no complaints. IV removed and intact. B12 injectiongiven and tolerated well. Patient's performance status has not changed since arrival to clinic. Patient discharged per ambulation. STERED NURSE BEHAVIORAL HEALTH documented in this encounter Plan of Treatment Upcoming Encounters Date Type Department Care Team (Late st Contact Info) Description 04/07/2024 11:10 AM REGISTERED NURSE BEHAVIORAL HEALTH Lab [facility] [address] [phone] Lab, [facility] 04/07/2024 11:15 AM REGISTERED NURSE BEHAVIORAL HEALTH Clinical Support [facility] [address] [phone] Nurse, [facility] 05/12/2024 11:00 AM REGISTERED NURSE BEHAVIORAL HEALTH Lab [facility] [address] [address] Lab, [facility] 05/12/2024 11:15 AM REGISTERED NURSE BEHAVIORAL HEALTH Office Visit [facility] [address] [phone] Kev Moser MD [address] [place] [phone] 05/12/2024 11:30 AM REGISTERED NURSE BEHAVIORAL HEALTH Clinical Support [facility] [address] [phone] Nurse, [facility] documented as [...] 1,000 mcg, Subcutaneous, ONCE, 1 dose, On Fri03/22/22 at 0900, To be given 1 week prior to Chemotherapy. Route IM or SUBQ.Indications:Vitamin B 12 deficiency Given 03/22/2022 9:00 AM REGISTERED NURSE BEHAVIORAL HEALTH 1,000 mcg Right Lateral Upper Arm ferric carboxymaltose (INJECTAFER) 750 mg in sodium chloride 0.9 % 100 mL IVPB 750 mg (set by rule on 03/04/2022 1:39 PM), Intravenous, ONCE, 1 dose, On Fri03/22/22 at 0900, Administer over 15 Minutes, Route IV. NS 100-250 ml. Infuse over 15 minutes. Must ovserve for 30 minutes after infusion complete.Indications:Iron deficiency anemia due to sideropenic dysphagia New Bag 03/22/2022 8:25 AM REGISTERED NURSE BEHAVIORAL HEALTH 750 mg documented in this encounter Additional Health Concerns Assessment Noted Time PHQ-9 Depression Total Score: 0 11/25/19 21 11:34 AM CDT documented as of this encounter Care Teams Sorority Mother Relationship Specialty Start Date End Date Scott Oneill MD PCP - General Internal Medicine 04/29/17 Kev Prince DO Gastroenterology 04/29/17 12/09/22 Tavo Mishra MD [address] [place] [address] Internal Medicine 04/29/17 Gilmer Barnard MD [address] [place] [address] Consulting Physician Internal Medicine 08/28/17 4 Kev Moser MD [address] [place] [phone] Consulting Physician Oncology 02/09/20 documented as of this encounter
--- OUTSIDE RECORDS SUMMARY | 2024-04-04 01:29 | XMS_ITS | Encounter Summary ---
Author Organization [employer] Care Team Providers Care Accounts Receivable Assistant Name Role Phone Scott Oneill MD Primary Care Provider [phone] Kev Prince DO Unavailable [phone] Tavo Mishra MD Unavailable [phone] Gilmer Barnard MD Unavailable [phone] Kev Moser MD Unavailable [phone] Encounter Details Date Type Department Care Team (Latest Contact Info) Description 11/08/2022 Travel Social History Tobacco Use Types Packs/Day [...] on file Legal Sex Male 3:42 PM SUPERVISOR PAIRING AND INSPECTING Gender Identity Not on file Sexual Orientation [...] st Contact Info) Description 04/07/2024 11:10 AM SUPERVISOR PAIRING AND INSPECTING Lab [facility] [address] [address] Lab, [facility] 04/07/2024 11:15 AM SUPERVISOR PAIRING AND INSPECTING Clinical Support [facility] [address] [address] Nurse, [facility] 05/12/2024 11:00 AM SUPERVISOR PAIRING AND INSPECTING Lab [facility] [address] [address] Lab, [facility] 05/12/2024 11:15 AM SUPERVISOR PAIRING AND INSPECTING Office Visit [facility] [address] [phone] Kev Moser MD [address] [place] [phone] 05/12/2024 11:30 AM SUPERVISOR PAIRING AND INSPECTING Clinical Support [facility] [address] [address] Nurse, [facility] documented as of this encounter Visit Diagnoses Not on filedocumented in this encounter Additional Health Concerns Assessment Noted Time PHQ-9 Depression Total Score: 0 11/25/19 21 11:34 AM CDT documented as of this encounter Care Teams Accounts Receivable Assistant Relationship Specialty Start Date End Date Scott Oneill MD PCP - General Internal Medicine 04/29/17 Kev Prince DO Gastroenterology 04/29/17 12/09/22 Tavo Mishra MD [address] [facility] [address] [place] [address] [phone] Internal Medicine 04/29/17 Gilmer Barnard MD [address] [phone] Consulting Physician Internal Medicine 08/28/17 4 Kev Moser MD [address] [place] [address] Consulting Physician Oncology 02/09/20 documented as of this encounter
--- OUTSIDE RECORDS SUMMARY | 2024-04-04 01:29 | XMS_ITS | Encounter Summary ---
Author Organization [employer] Care Team Providers Care Document Clerk Name Role Phone Scott Oneill MD Primary Care Provider [phone] Kev Prince DO Unavailable [phone] Tavo Mishra MD Unavailable [phone] Gilmer Barnard MD Unavailable [phone] Kev Moser MD Unavailable [phone] Encounter Details Date Type Department Care Team (Latest Contact Info) Description 09/24/2022 Travel Social History Tobacco Use Types Packs/Day [...] on file Legal Sex Male 3:42 PM UNIVERSITY SERVICES PROGRAM ASSOCIATE Gender Identity Not on file Sexual [...] st Contact Info) Description 04/07/2024 11:10 AM UNIVERSITY SERVICES PROGRAM ASSOCIATE Lab [facility] [address] [address] Lab, [facility] 04/07/2024 11:15 AM UNIVERSITY SERVICES PROGRAM ASSOCIATE Clinical Support [facility] [address] [address] Nurse, [facility] 05/12/2024 11:00 AM UNIVERSITY SERVICES PROGRAM ASSOCIATE Lab [facility] [address] [address] Lab, [facility] 05/12/2024 11:15 AM UNIVERSITY SERVICES PROGRAM ASSOCIATE Office Visit [facility] [address] [phone] Kev Moser MD [address] [place] [phone] 05/12/2024 11:30 AM UNIVERSITY SERVICES PROGRAM ASSOCIATE Clinical Support [facility] [address] [address] Nurse, [facility] documented as of this encounter Visit Diagnoses Not on filedocumented in this encounter Additional Health Concerns Assessment Noted Time PHQ-9 Depression Total Score: 0 11/25/19 21 11:34 AM CDT documented as of this encounter Care Teams Document Clerk Relationship Specialty Start Date End Date Scott Oneill MD PCP - General Internal Medicine 04/29/17 Kev Prince DO Gastroenterology 04/29/17 12/09/22 Tavo Mishra MD [address] [facility] [address] [place] [address] [phone] Internal Medicine 04/29/17 Gilmer Barnard MD [address] [phone] Consulting Physician Internal Medicine 08/28/17 4 Kev Moser MD [address] [place] [address] Consulting Physician Oncology 02/09/20 documented as of this encounter
--- OUTSIDE RECORDS SUMMARY | 2024-04-04 01:30 | XMS_ITS | Encounter Summary ---
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 Encounter Details Date Type Department Care Team (Latest Contact Info) Description 11/06/2021 10:30 AM CDT Clinical Support [facility] [address] [address] Nurse, [facility] Other autoimmune hemolytic anemia (HCC) (Primary Dx); Stage 3a chronic kidney disease (HCC); Glomerulonephritis; Myelofibrosis (HCC) Social History Tobacco Use Types Packs/Day [...] on file Legal Sex Male 3:42 PM VACCINATOR Gender Identity Not on file Sexual Orientation Not on file COVID-19 Exposure Response Date Recorded In the last 10 days, have yo u been in contact with someone who was confirmed or suspected to have Coronavirus/COVID-19? No / Unsure 11/06/2021 10:30 AM CDT documented as of this encounter Progress Notes * Xochitl Campos RN - 11/06/2021 10:30 AM CDT Late entry 11/05/2021 Eliquis 5mg 2 Boxes Lot# [id number] [id number] 10/21(#28 pills) 2 boxes Lot#[id number] EXP 10/21 (#28 pills) documented in this encounter Plan of Treatment Upcoming Encounters Date Type Department Care Team (Late st Contact Info) Description 04/07/2024 11:10 AM VACCINATOR Lab [facility] [address] [phone] Lab, [facility] 04/07/2024 11:15 AM VACCINATOR Clinical Support [facility] [address] [phone] Nurse, [facility] 05/12/2024 11:00 AM VACCINATOR Lab [facility] [address] [phone] Lab, [facility] 05/12/2024 11:15 AM VACCINATOR Office Visit [facility] [address] [phone] Kev Moser MD [address] [place] [phone] 05/12/2024 11:30 AM VACCINATOR Clinical Support [facility] [address] [phone] Nurse, [facility] documented as of this encounter Visit Diagnoses Diagnosis Other autoimmune hemolytic anemia (HCC)- Primary Stage 3a chronic kidney disease (HCC) Glomerulonephritis Nephritis and nephropathy, not specified as acute or chronic, 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 Myelofibrosis (HCC) Myelofibrosis documented in this encounter Additional Health Concerns Assessment Noted Time PHQ-9 Depression Total Score: 0 11/25/19 21 11:34 AM CDT documented as of this encounter Care Teams Supplier Development Manager Relationship Specialty Start Date End Date Scott Oneill MD PCP - General Internal Medicine 04/29/17 Kev Prince DO Gastroenterology 04/29/17 12/09/22 Tavo Mishra MD [address] [place] [address] Internal Medicine 04/29/17 Gilmer Barnard MD [address] [place] [address] Consulting Physician Internal Medicine 08/28/17 4 Kev Moser MD [address] [place] [phone] Consulting Physician Oncology 02/09/20 documented as of this encounter
--- OUTSIDE RECORDS SUMMARY | 2024-04-04 01:30 | XMS_ITS | Encounter Summary ---
Author Organization [facility] Address [address] [place] [address] Phone Care Team Providers Care Maintainer [employer] Name Role Phone Scott Oneill MD Primary Care Provider Kev Prince DO Unavailable [phone] Tavo Mishra MD Unavailable [phone] Gilmer Barnard MD Unavailable [phone] Kev Moser MD Unavailable [phone] Encounter Details Date Type Department Care Team (Late st Contact Info) Description 08/02/2021 Telephone [facility] [place] [address] [place] [address] Kev Moser MD [address] [place] [phone] Social History Tobacco Use Types Packs/Day [...] on file Legal Sex Male 3:42 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 Gender Identity Not on file Sexual Orientation Not on file documented as of this encounter Miscellaneous Notes * Telephone Encounter - Karuna López - 08/02/2021 10:41 AM CDT error documented in this encounter Plan of Treatment Upcoming Encounters Date Type Department Care Team (Late st Contact Info) Description 04/07/2024 11:10 AM PATIENT FINANCIAL SERVICES SPECIALIST Lab [facility] [address] [address] Lab, [facility] 04/07/2024 11:15 AM PATIENT FINANCIAL SERVICES SPECIALIST Clinical Support [facility] [address] [phone] Nurse, [facility] 05/12/2024 11:00 AM PATIENT FINANCIAL SERVICES SPECIALIST Lab [facility] [address] [address] Lab, [facility] 05/12/2024 11:15 AM PATIENT FINANCIAL SERVICES SPECIALIST Office Visit [facility] [address] [phone] Kev Moser MD [address] [place] [phone] 05/12/2024 11:30 AM PATIENT FINANCIAL SERVICES SPECIALIST Clinical Support [facility] [address] [phone] Nurse, [facility] documented as of this encounter Visit Diagnoses Not on filedocumented in this encounter Additional Health Concerns Assessment Noted Time PHQ-9 Depression Total Score: 0 11/25/19 21 11:34 AM CDT documented as of this encounter Care Teams Maintainer [employer]er [employer] Waterworks Relationship Specialty Start Date End Date Scott Oneill MD PCP - General Internal Medicine 04/29/17 Kev Prince DO Gastroenterology 04/29/17 12/09/22 Tavo Mishra MD [address] [place] [address] [phone] Internal Medicine 04/29/17 Gilmer Barnard MD [address] [place] [address] [phone] Consulting Physician Internal Medicine 08/28/17 4 Kev Moser MD [address] [place] [phone] Consulting Physician Oncology 02/09/20 documented as of this encounter
--- OUTSIDE RECORDS SUMMARY | 2024-04-04 01:30 | XMS_ITS | Encounter Summary ---
Author Organization [employer] Care Team Providers Care Saddle Stitch Operator Name Role Phone Scott Oneill MD Primary Care Provider Kev Prince DO Unavailable [phone] Tavo Mishra MD Unavailable [phone] Gilmer Barnard MD Unavailable [phone] Kev Moser MD Unavailable [phone] Encounter Details Date Type Department Care Team (Latest Contact Info) Description 01/11/2021 Travel Social History Tobacco Use Types Packs/Day Years Used Date Smoking Tobacco: Former Cigarettes 1 30 0 05/23/1981 - 05/23/2011 Smokeless Tobacco: Never Alcohol Use Standard Drinks/Week Comments No 0 (1 standard drink = 0.6 oz pur e alcohol) PHQ-2 Answer Date Recorded Total Score - Questions 1-9 0 10/30 Sex and Gender Information Value Date Recorded Sex Assigned at Not on file 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 No / Unsure 01/11/2021 1:44 PM CDT documented as of this encounter Plan of Treatment Upcoming Encounters Date Type Department Care Team (Late st Contact Info) Description 04/07/2024 11:10 AM SENIOR CHEMICAL ENGINEER Lab [facility] [address] [address] Lab, [facility] 04/07/2024 11:15 AM SENIOR CHEMICAL ENGINEER Clinical Support [facility] [address] [phone] Nurse, [facility] 05/12/2024 11:00 AM SENIOR CHEMICAL ENGINEER Lab [facility] [address] [phone] Lab, [facility] 05/12/2024 11:15 AM SENIOR CHEMICAL ENGINEER Office Visit [facility] [address] [phone] Kev Moser MD [address] [place] [phone] 05/12/2024 11:30 AM SENIOR CHEMICAL ENGINEER Clinical Support [facility] [address] [phone] Nurse, [facility] documented as of this encounter Visit Diagnoses Not on filedocumented in this encounter Additional Health Concerns Assessment Noted Time PHQ-9 Depression Total Score: 0 11/25/19 21 11:34 AM CDT documented as of this encounter Care Teams Saddle Stitch Operator Relationship Specialty Start Date End Date Scott Oneill MD PCP - General Internal Medicine 04/29/17 Kev Prince DO Gastroenterology 04/29/17 12/09/22 Tavo Mishra MD [address] [place] [address] [phone] Internal Medicine 04/29/17 Gilmer Barnard MD [address] [phone] Consulting Physician Internal Medicine 08/28/17 4 Kev Moser MD [address] [place] [address] Consulting Physician Oncology 02/09/20 documented as of this encounter
--- OUTSIDE RECORDS SUMMARY | 2024-04-04 01:30 | XMS_ITS | Encounter Summary ---
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 Gender Identity Not on file Sexual [...] st Contact Info) Description 04/07/2024 11:10 AM AIR TABLE OPERATOR Lab [facility] [address] [address] Lab, [facility] 04/07/2024 11:15 AM AIR TABLE OPERATOR Clinical Support [facility] [address] [address] Nurse, [facility] 05/12/2024 11:00 AM AIR TABLE OPERATOR Lab [facility] [address] [address] Lab, [facility] 05/12/2024 11:15 AM AIR TABLE OPERATOR Office Visit [facility] [address] [phone] Kev Moser MD [address] [place] [phone] 05/12/2024 11:30 AM AIR TABLE OPERATOR Clinical Support [facility] [address] [address] Nurse, [facility] documented as of this encounter Visit Diagnoses Not on filedocumented in this encounter Additional Health Concerns Assessment Noted Time PHQ-9 Depression Total Score: 0 11/25/19 21 11:34 AM CDT documented as of this encounter Care Teams Community Manager Relationship Specialty Start Date End Date Scott Oneill MD PCP - General Internal Medicine 04/29/17 Kev Prince DO Gastroenterology 04/29/17 12/09/22 Tavo Mishra MD [address] [facility] [address] [place] [address] [phone] Internal Medicine 04/29/17 Gilmer Barnard MD [address] [phone] Consulting Physician Internal Medicine 08/28/17 4 Kev Moser MD [address] [place] [address] Consulting Physician Oncology 02/09/20 documented as of this encounter
--- OUTSIDE RECORDS SUMMARY | 2024-04-04 01:30 | XMS_ITS | Encounter Summary ---
Author Organization [facility] Address [address] [place] [address] Phone Care Team Providers Care Supervisor Grain [employer] Name Role Phone Scott Oneill MD Primary Care Provider Kev Prince DO Unavailable [phone] Tavo Mishra MD Unavailable [phone] Gilmer Barnard MD Unavailable [phone] Kev Moser MD Unavailable [phone] Reason for Visit * Reason Comments Other Eliquis sample dispe nse Encounter Details Date Type Department Care Team (Latest Contact Info) Description 01/02/2022 4:30 PM CDT Clinical Support [facility] [address] [phone] Nurse, [facility] Other autoimmune hemolytic anemia (HCC) Social [...] on file 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 No / Unsure 01/02/2022 3:39 PM CDT documented as of this encounter Progress Notes * Fritz Pena, RN - 01/02/2022 4:30 PM CDT Eliquis 5mg sample dispense Take one tablet by mouth twice daily. 4 boxes given (56 tabs) LOT#:??[id number] EXP:??11/2023 documented in this encounter Plan of Treatment Upcoming Encounters Date Type Department Care Team (Late st Contact Info) Description 04/07/2024 11:10 AM LIVE TRUCK TECHNICIAN Lab [facility] [address] [phone] Lab, [facility] 04/07/2024 11:15 AM LIVE TRUCK TECHNICIAN Clinical Support [facility] [address] [phone] Nurse, [facility] 05/12/2024 11:00 AM LIVE TRUCK TECHNICIAN Lab [facility] [address] [phone] Lab, [facility] 05/12/2024 11:15 AM LIVE TRUCK TECHNICIAN Office Visit [facility] [address] [phone] Kev Moser MD [address] [place] [phone] 05/12/2024 11:30 AM LIVE TRUCK TECHNICIAN Clinical Support [facility] [address] [phone] Nurse, [facility] documented as of this encounter Visit Diagnoses Diagnosis Other autoimmune hemolytic anemia (HCC) documented in this encounter Additional Health Concerns Assessment Noted Time PHQ-9 Depression Total Score: 0 11/25/19 21 11:34 AM CDT documented as of this encounter Care Teams Supervisor Grain And Yeast Plants Relationship Specialty Start Date End Date Scott Oneill MD PCP - General Internal Medicine 04/29/17 Kev Prince DO Gastroenterology 04/29/17 12/09/22 Tavo Mishra MD [address] [place] [address] Internal Medicine 04/29/17 Gilmer Barnard MD [address] [facility] [address] [place] [address] Consulting Physician Internal Medicine 08/28/17 4 Kev Moser MD [address] [place] [phone] Consulting Physician Oncology 02/09/20 documented as of this encounter
--- OUTSIDE RECORDS SUMMARY | 2024-04-04 01:30 | XMS_ITS | Encounter Summary ---
Author Organization [facility] Address [address] [place] [address] Phone Care Team Providers Care Physical Geographer Name Role Phone Scott Oneill MD Primary Care Provider [phone] Kev Prince DO Unavailable [phone] Tavo Mishra MD Unavailable [phone] Gilmer Barnard MD Unavailable [phone] Kev Moser MD Unavailable [phone] Reason for Visit * Reason Comments Follow-up c/o poor appetite Encounter Details Date Type Department Care Team (Late st Contact Info) Description 03/02/2021 11:30 AM ADJUNCT BUSINESS INSTRUCTOR Office [facility] [address] [phone] Kev Moser MD [address] [place] [phone] Other autoimmune hemolytic anemia (HCC) (Primary Dx); Stage 3a chronic kidney disease (HCC); Iron deficiency anemia due to sideropenic dysphagia; Iron deficiency anemia, unspecified iron deficiency anemia type; Glomerulonephritis Social History Tobacco Use Types Packs/Day Years [...] on file Legal Sex Male 3:42 PM ADJUNCT BUSINESS INSTRUCTOR Gender Identity Not on file Sexual Orientation Not on file COVID-19 Exposure Response Date Recorded In the last month, have you been in contact with someone who was confirmed or suspected to have Coronavirus / COVID-19? No / Unsure 03/02/2021 10:51 AM ADJUNCT BUSINESS INSTRUCTOR documented as of this encounter Last Filed Vital Signs Vital Sign Reading Time Taken Comments Blood Pressure 142/80 03/02/2021 11:07 AM ADJUNCT BUSINESS INSTRUCTOR Pulse 73 03/02/2021 11:07 AM ADJUNCT BUSINESS INSTRUCTOR Temperature 36.6 ??C (97.8 ??F) 03/02/2021 11:[address] Respiratory Rate 18 03/02/2021 11:07 AM ADJUNCT BUSINESS INSTRUCTOR Oxygen Saturation 96% 03/02/2021 11:07 AM ADJUNCT BUSINESS INSTRUCTOR Inhaled Oxygen Concentration - - Weight 100 kg (220 lb 6.4 oz) 03/02/2021 11:07 A M ADJUNCT BUSINESS INSTRUCTOR Height 165.1 cm (5' 5 ) 03/02/2021 11:07 AM ADJUNCT BUSINESS INSTRUCTOR Body Mass Index 36.68 03/02/2021 11:07 AM ADJUNCT BUSINESS INSTRUCTOR documented in this encounter Progress Notes * Kev Moser MD - 03/02/2021 11:30 AM CST Images from the original note were not included. Patient: Britton Nielsen Age: 66 y.o. : 1955 [facility] En[facility] Date: 03/02/2021 Care Team: Current Providers PCP: Scott Oneill MD Care Team Provider: Kev Prince DO Care Team Provider: Tavo Mishra MD Care Team Provider: Gilmer Barnard MD Care Team Provider: Kev Moser MD Encounter Provider: Kev Moser MD Referring Provider: not found Consulting Physician: Kev Moser MD HISTORY OF PRESENT ILLNESS: Britton returns. He is doing stable. He has no major changes. DIAGNOSIS: 1. Glomerulonephritis, sclerosing (renal biopsy 04/01/17). 2. Significant anemia with bleeding ulcer, chronic kidney disease, and patient is on Cytoxan with iron deficiency. 3. Recurrent bleeding ulcers. 4. Patient had a positive BRIANNA at an outside hospital. 5. Bilateral pulmonary emboli, bilateral lower extremity DVT (10/2017). 6. Coronary artery disease with CABG 06/2020. PAST TREATMENT: 1. Gastroduodenal artery embolization at [facility] 05/2017. 2. Cytoxan 100 mg daily. 3. Bone marrow biopsy 11/03/17 with normocellular marrow and maturating trilineage hematopoiesis with minimal reticulin fibrosis. Normal karyotype and NGS study. 4. EPO 40,000 units q.4 to 8 weeks (poor response, stopped on 01/2019). CURRENT TREATMENT: On Eliquis b.i.d. Using samples. He is off Cytoxan and prednisone, in remission for his kidney disease. TREATMENT GUIDELINES: Consistent with NCCN guidelines. PROGNOSIS: [...] Coronary artery disease with CABG 06/2020. PLAN: Hemoglobin is markedly improved after coming off CellCept and prednisone. Continue to follow with Cardiology and Nephrology. I will see him back in one year. Continue Eliquis. We will give samples p.r.n. Followup bloodwork in one year. TIME SPENT: REVIEW OF SYSTEMS: See HPI; [...] or effusion. No spine tenderness. LABORATORY/PATHOLOGY/IMAGING NOTES: All lab results shown below reviewed. Kev Moser MD, FACP/rmd Vitals: Vitals: 03/02/21 1107 BP: 142/80 BP Location: Left Arm BP Position: Sitting BP Cuff Size: Regular Pulse: 73 Resp: 18 Temp: 97.8 ??F (36.6 ??C) TempSrc: Temporal SpO2: 96% Weight: 220 lb 6.4 oz (100 kg) Height: 5' 5 (1.651 m) Body surface area is 2.14 meters squared. Body mass index is 36.68 kg/m??. Pain Score: 6 Pain Loc: Pelvic (RT side) Pain Edu?: Yes Allergies: No Known Allergies [...] Social History Socioeconomic History ??? Marital status: Spouse name: Not on file ??? Number of children: Not on file ??? Years of education: Not on file ??? Highest education level: Not on file Tobacco Use ??? Smoking status: Former Smoker Packs/day: 1.00 Years: 30.00 Pack years: 30.00 Types: Cigarettes Quit date: 05/23/2011 Years since quittin.7 ??? Smokeless tobacco: Never Used Vaping Use [...] tracked chemicals: Doxorubicin, Epirubicin, Idarubicin, Daunorubicin, Mitoxantrone, Bleomycin Current Medications: Outpatient Encounter Medications as of 03/02/2021 Medication Sig Dispense Refill ??? apixaban (Eliquis) 5 MG Tablet Take 1 Tablet by mouth 2 times daily. Indications: Prevention ofUnwanted Clot in Veins 56 Tablet 0 ??? aspirin EC 81 MG Tablet Delayed Response Take 81 mg by mouth. ??? [DISCONTINUED] atorvastatin (LIPITOR) 20 MG Tablet Take 20 mg by mouth daily. ??? atorvastatin (LIPITOR) 40 MG Tablet ??? Calcium Carb-Cholecalciferol (CALCIUM 600 + D PO) Take by mouth 2 times daily. ??? cyanocobalamin 1000 MCG Tablet Take 1 tablet by mouth daily 30 Tab 0 ??? ergocalciferol (VITAMIN D) 10123 UNIT Capsule Take 50,000 Units by mouth [...] facility-administered encounter medications on file as of 03/02/2021. Labs: Lab on 03/02/2021 Component Date Value Ref Range Status ??? Reticulocyte count 03/02/2021 1.11 0.51 - 1.81 % Final ??? RET-He 03/02/2021 32.50 28.20 - 36.60 pg Final Comment: RET-He is a direct assessment of incorporation of iron into erythrocyte hemoglobin. It provides an indirect measure of the iron available for new erythropoiesis over past 2-4 days. ??? WBC 03/02/2021 6.7 4.0 - 10.0 10*3/uL Final ??? HGB 03/02/2021 11.4* 13.7 - 17.5 g/dL Final ??? HCT 03/02/2021 35.1* 40.1 - 51.0 % Final ??? PLT 03/02/2021 173 163 - 369 10*3/uL Final ??? MPV 03/02/2021 9.7 9.4 - 12.4 fL Final ??? RBC 03/02/2021 4.08* 4.63 - 6.08 10*6/uL Final ??? MCV 03/02/2021 86 79 - 95 fL Final ??? MCH 03/02/2021 27.9 25.6 - 32.2 pg Final ??? MCHC 03/02/2021 32.5 32.2 - 36.5 g/dL Final ??? RDW 03/02/2021 14.9* 11.6 - 14.4 % Final NCT BUSINESS INSTRUCTOR NCT BUSINESS INSTRUCTOR documented in this encounter Plan of Treatment Upcoming Encounters Date Type Department Care Team (Late st Contact Info) Description 04/07/2024 11:10 AM ADJUNCT BUSINESS INSTRUCTOR Lab [facility] [address] [phone] Lab, [facility] 04/07/2024 11:15 AM ADJUNCT BUSINESS INSTRUCTOR Clinical Support [facility] [address] [place] [phone] Nurse, [facility] 05/12/2024 11:00 AM ADJUNCT BUSINESS INSTRUCTOR Lab [facility] [address] [phone] Lab, [facility] 05/12/2024 11:15 AM ADJUNCT BUSINESS INSTRUCTOR Office Visit [facility] [address] [phone] Kev Moser MD [address] [place] [phone] 05/12/2024 11:30 AM ADJUNCT BUSINESS INSTRUCTOR Clinical Support [facility] [address] [phone] Nurse, [facility] documented as of this encounter Results * FOLIC ACID (FOLATE) (03/01/2022 11:09 AM ADJUNCT BUSINESS INSTRUCTOR) Folate 9.37 >=5.90 ng/mL [facility] Blood 03/01/2022 11:0 9 AM ADJUNCT BUSINESS INSTRUCTOR Narrative [facility] - 03/04/2022 3:05 PM ADJUNCT BUSINESS INSTRUCTOR IS THE PATIENT REQUIRED TO BE FASTING FOR 12 HOURS?->No Release to patient->Immediate us Kev Moser MD CHEMISTRY ORDERABLES Final Result [facility] [place] [address], * (ABNORMAL) VITAMIN B12 (03/01/2022 11:09 AM ADJUNCT BUSINESS INSTRUCTOR) Vitamin B12 179(L) 180 - 914 pg/mL [facility] Blood 03/01/2022 11:0 9 AM ADJUNCT BUSINESS INSTRUCTOR Narrative [facility] - 03/04/2022 3:05 PM ADJUNCT BUSINESS INSTRUCTOR Release to patient->Immediate us Kev Moser MD CHEMISTRY ORDERABLES Final Result [facility]ICAL INSTRUMENT SUPERVISOR [facility] [address] [place] [id number], [place] [phone] * RETICULOCYTE COUNT (RETIC) (03/01/2022 11:09 AM ADJUNCT BUSINESS INSTRUCTOR) Reticulocyte count 1.18 0.51 - 1.81 % [facility] RET-He 29.90 28.20 - 36.60 pg [facility] Comment: RET-He is a direct assessment of incorporation of iron into erythrocyte hemoglobin. It provides an indirect measure of the iron available for new erythropoiesis over past 2-4 days. Blood 03/01/2022 11:0 9 AM ADJUNCT BUSINESS INSTRUCTOR Narrative [facility] - 03/01/2022 11:42 AM ADJUNCT BUSINESS INSTRUCTOR Release to patient->Immediate us Kev Moser MD HEMATOLOGY ORDERABLES Final Result Performing Organization Address [facility]/ZIP Co de Phone Number [facility] [address] [place] [address], [place] [phone] * (ABNORMAL) IRON W/ IRON BINDING CAPACITY [place] (03/01/2022 11:09 AM ADJUNCT BUSINESS INSTRUCTOR) IRON 39(L) 50 - 212 ug/dL [facility] UIBC 211 155 - 355 ug/dL [facility] TIBC 250(L) 261 - 478 ug/dl [facility] % Saturation 16(L) 20 - 50 % [facility] 03/01/2022 11:0 9 AM ADJUNCT BUSINESS INSTRUCTOR [facility] - 03/01/2022 3:20 PM ADJUNCT BUSINESS INSTRUCTOR Release to patient->Immediate us Kev Moser MD LAB SEND OUTS Final Resul t [facility] [address] [place] [address], [place] [phone] * FERRITIN (03/01/2022 11:09 AM ADJUNCT BUSINESS INSTRUCTOR) Ferritin 209 24 - 336 ng/mL [facility] MUSICAL INSTRUMENT SUPERVISOR [facility] Blood 03/01/2022 11:0 9 AM ADJUNCT BUSINESS INSTRUCTOR Narrative [facility] - 03/04/2022 3:05 PM ADJUNCT BUSINESS INSTRUCTOR Release to patient->Immediate us Kev Moser MD CHEMISTRY ORDERABLES Final Result [facility] MUSICAL INSTRUMENT SUPERVISOR [facility] [address] [place] [address], [place] [phone] * LACTATE DEHYDROGENASE (LD) (03/01/2022 11:09 AM ADJUNCT BUSINESS INSTRUCTOR) LDH 164 140 - 271 U/L [facility] Blood 03/01/2022 11:0 9 AM ADJUNCT BUSINESS INSTRUCTOR Narrative [facility] - 03/01/2022 3:20 PM ADJUNCT BUSINESS INSTRUCTOR Release to patient->Immediate us Kev Moser MD CHEMISTRY ORDERABLES Final Result Performing Organization Address City[facility] Co de Phone Number [facility] [address] [place] [address], [place] [phone] * (ABNORMAL) CMP (COMPREHENSIVE METABOLIC PANEL) (03/01/2022 11:09 AM ADJUNCT BUSINESS INSTRUCTOR) Glucose 87 70 - 105 mg/dL [facility] Blood Urea Nitrogen 35(H) 7 - 25 mg/dL [facility] Creatinine 2.2(H) 0.7 - 1.3 mg/dL [facility] Sodium 141 136 - 145 mEq/L [facility] Potassium 5.4(H) 3.5 - 5.1 mEq/L [facility] Chloride 108(H) 98 - 107 mEq/L [facility] Bicarbonate 21 21 - 31 mEq/L [facility] Total Bilirubin 0.6 0.3 - 1.0 mg/dL [facility] Alk. Phosphatase 101 34 - 104 U/L [facility] Aspartate Aminotransferase 14 13 - 39 U/L [facility] Alanine Aminotransferase 15 7 - 52 U/L [facility] Total Protein 7.0 6.4 - 8.9 g/dL [facility] Albumin 4.1 3.5 - 5.7 g/dL [facility] Calcium 8.8 8.6 - 10.3 mg/dL [facility] Anion Gap 17.4(H) 7.0 - 15.0 mEq/L [facility] Globulin 2.9 2.0 - 3.5 g/dL [facility] EGFR 32(L) >60 ml/min/1. 73m2 [facility] Comment: This eGFR is calculated using 2020 CKD-EPI Creatinine equation without race modifier based on the NKF-ASN task force recommendations Blood 03/01/2022 11:0 9 AM ADJUNCT BUSINESS INSTRUCTOR Narrative [facility] - 03/01/2022 3:20 PM ADJUNCT BUSINESS INSTRUCTOR IS THE PATIENT REQUIRED TO BE FASTING FOR 8 HOURS?->No Release to patient->Immediate us Kev Moser MD CHEMISTRY ORDERABLES Final Result [facility] Cancer Care [address] [address], * (ABNORMAL) COMPLETE BLOOD COUNT (CBC) WITH DIFF (03/01/2022 11:09 AM ADJUNCT BUSINESS INSTRUCTOR) WBC 4.9 4.0 - 10.0 10*3/uL [facility] HGB 11.1(L) 13.7 - 17.5 g/dL [facility] HCT 36.3(L) 40.1 - 51.0 % [facility] PLT 157(L) 163 - 369 10*3/uL [facility] MPV 9.6 9.4 - 12.4 fL [facility] RBC 3.85(L) 4.63 - 6.08 10*6/uL [facility] MCV 94 79 - 95 fL [facility] MCH 28.8 25.6 - 32.2 pg [facility] MCHC 30.6(L) 32.2 - 36.5 g/dL [facility] RDW 14.9(H) 11.6 - 14.4 % [facility] Absolute Neutrophil Count 3,451 cells/uL [facility] Absolute Seg Count 3,451 1,440 - 6,600 cells/uL [facility] Absolute Lymph Count 632(L) 760 - 4,000 cells/uL [facility] Absolute Gulf Count 535 160 - 1,200 cells/uL [facility] Absolute Eos Count 194 0 - 300 cells/uL [facility] Absolute Baso Count 49 0 - 100 cells/uL [facility] Segmented Neutrophils 71(H) 36 - 66 % [facility] Lymphocytes 13(L) 19 - 40 % [facility] Monocytes 11 4 - 12 % [facility] Eosinophils 4(H) 0 - 3 % [facility] Basophils 1 0 - 1 % [facility] WBC Estimate Normal [facility] Platelet Estimate Low [facility] RBC Morphology Abnormal [facility] Anisocytosis 1+ [facility] Blood 03/01/2022 11:0 9 AM ADJUNCT BUSINESS INSTRUCTOR Narrative [facility] - 03/01/2022 2:16 PM ADJUNCT BUSINESS INSTRUCTOR Release to patient->Immediate us Kev Moser MD HEMATOLOGY ORDERABLES Final Result [facility] [address] [place] [address], documented in this encounter Visit Diagnoses Diagnosis Other autoimmune hemolytic anemia (HCC)- Primary Stage 3a chronic kidney disease (HCC) Iron deficiency anemia due to sideropenic dysphagia Iron deficiency anemia, unspecified iron deficiency anemia type Glomerulonephritis Nephritis and nephropathy, not specified as acute or chronic, 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 Other autoimmune hemolytic anemia (HCC) Stage 3a chronic kidney disease (HCC) Iron deficiency anemia due to sideropenic dysphagia Iron deficiency anemia, unspecified iron deficiency anemia type documented in this encounter Additional Health Concerns Assessment Noted Time PHQ-9 Depression Total Score: 0 11/25/19 21 11:34 AM CDT documented as of this encounter Care Teams Physical Geographer Relationship Specialty Start Date End Date Scott Oneill MD PCP - General Internal Medicine 04/29/17 Kev Prince DO Gastroenterology 04/29/17 12/09/22 Tavo Mishra MD [address] [place] [phone] Internal Medicine 04/29/17 Gilmer Barnard MD [address] [place] [address] [phone] Consulting Physician Internal Medicine 08/28/17 4 Kev Moser MD [address] [place] [phone] Consulting Physician Oncology 02/09/20 documented as of this encounter
--- OUTSIDE RECORDS SUMMARY | 2024-04-04 01:30 | XMS_ITS | Encounter Summary ---
Author Organization [employer] Care Team Providers Care Office Copy Selector Name Role Phone Scott Oneill MD Primary Care Provider Kev Prince DO Unavailable [phone] Tavo Mishra MD Unavailable [phone] Gilmer Barnard MD Unavailable [phone] Kev Moser MD Unavailable [phone] Encounter Details Date Type Department Care Team (Latest Contact Info) Description 03/02/2021 Travel Social History Tobacco Use Types Packs/Day [...] on file Legal Sex Male 3:42 PM PIPELINE DISPATCH OPERATOR Gender Identity Not on file Sexual Orientation Not on file COVID-19 Exposure Response Date Recorded In the last month, have you been in contact with someone who was confirmed or suspected to have Coronavirus / COVID-19? No / Unsure 03/02/2021 10:51 AM PIPELINE DISPATCH OPERATOR documented as of this encounter Plan of Treatment Upcoming Encounters Date Type Department Care Team (Late st Contact Info) Description 04/07/2024 11:10 AM PIPELINE DISPATCH OPERATOR Lab [facility] [address] [phone] Lab, [facility] 04/07/2024 11:15 AM PIPELINE DISPATCH OPERATOR Clinical Support [facility] [address] [phone] Nurse, [facility] 05/12/2024 11:00 AM PIPELINE DISPATCH OPERATOR Lab [facility] [address] [phone] Lab, [facility] 05/12/2024 11:15 AM PIPELINE DISPATCH OPERATOR Office Visit [facility] [address] [phone] Kev Moser MD [address] [place] [phone] 05/12/2024 11:30 AM PIPELINE DISPATCH OPERATOR Clinical Support [facility] [address] [phone] Nurse, [facility] documented as of this encounter Visit Diagnoses Not on filedocumented in this encounter Additional Health Concerns Assessment Noted Time PHQ-9 Depression Total Score: 0 11/25/19 21 11:34 AM CDT documented as of this encounter Care Teams Office Copy Selector Relationship Specialty Start Date End Date Scott Oneill MD PCP - General Internal Medicine 04/29/17 Kev Prince DO Gastroenterology 04/29/17 12/09/22 Tavo Mishra MD [address] [place] [address] [phone] Internal Medicine 04/29/17 Gilmer Barnard MD [address] [place] [phone] Consulting Physician Internal Medicine 08/28/17 4 Kev Moser MD [address] [place] [phone] Consulting Physician Oncology 02/09/20 documented as of this encounter
--- OUTSIDE RECORDS SUMMARY | 2024-04-04 01:30 | XMS_ITS | Encounter Summary ---
Author Organization [employer] Care Team Providers Care Assistant To The Vice President Name Role Phone Scott Oneill MD Primary Care Provider [phone] Kev Prince DO Unavailable [phone] Tavo Mishra MD Unavailable [phone] Gilmer Barnard MD Unavailable [phone] Kev Moser MD Unavailable [phone] Encounter Details Date Type Department Care Team (Latest Contact Info) Description 12/04/2021 Travel Social History Tobacco Use Types Packs/Day [...] on file Legal Sex Male 3:42 PM FINISHER PLATE Gender Identity Not on file Sexual Orientation Not on file COVID-19 Exposure Response Date Recorded In the last 10 days, have yo u been in contact with someone who was confirmed or suspected to have Coronavirus/COVID-19? No / Unsure 12/04/2021 10:10 AM CDT documented as of this encounter Plan of Treatment Upcoming Encounters Date Type Department Care Team (Late st Contact Info) Description 04/07/2024 11:10 AM FINISHER PLATE Lab [facility] [address] [phone] Lab, [facility] 04/07/2024 11:15 AM FINISHER PLATE Clinical Support [facility] [address] [phone] Nurse, [facility] 05/12/2024 11:00 AM FINISHER PLATE Lab [facility] [address] [phone] Lab, [facility] 05/12/2024 11:15 AM FINISHER PLATE Office Visit [facility] [address] [phone] Kev Moser MD [address] [place] [phone] 05/12/2024 11:30 AM FINISHER PLATE Clinical Support [facility] [address] [phone] Nurse, [facility] documented as of this encounter Visit Diagnoses Not on filedocumented in this encounter Additional Health Concerns Assessment Noted Time PHQ-9 Depression Total Score: 0 11/25/19 21 11:34 AM CDT documented as of this encounter Care Teams Assistant To The Vice President Relationship Specialty Start Date End Date Scott Oneill MD PCP - General Internal Medicine 04/29/17 Kev Prince DO Gastroenterology 04/29/17 12/09/22 Tavo Mishra MD [address] [facility] [address] [place] [address] [phone] Internal Medicine 04/29/17 Gilmer Barnard MD [address] [phone] Consulting Physician Internal Medicine 08/28/17 4 Kev Moser MD [address] [place] [phone] Consulting Physician Oncology 02/09/20 documented as of this encounter
--- OUTSIDE RECORDS SUMMARY | 2024-04-04 01:30 | XMS_ITS | Encounter Summary ---
Author Organization [facility] Care Team Providers Care Home Staging Specialist Name Role Phone Scott Oneill MD Primary Care Provider Kev Prinec DO Unavailable [phone] Tavo Mishra MD Unavailable [phone] Gilmer Barnard MD Unavailable [phone] Kev Moser MD Unavailable [phone] Encounter Details Date Type Department Care Team (Latest Contact Info) Description 04/09/2021 Travel Social History Tobacco Use Types Packs/Day [...] file Legal Sex Male 3:42 PM SUPERVISOR SHIPPING Gender Identity Not on file Sexual Orientation Not on file COVID-19 Exposure Response Date Recorded In the last month, have you been in contact with someone who was confirmed or suspected to have Coronavirus / COVID-19? No / Unsure 04/09/2021 12:44 PM SUPERVISOR SHIPPING documented as of this encounter Plan of Treatment Upcoming Encounters Date Type Department Care Team (Late st Contact Info) Description 04/07/2024 11:10 AM SUPERVISOR SHIPPING Lab [facility] [address] [phone] Lab, [facility] 04/07/2024 11:15 AM SUPERVISOR SHIPPING Clinical Support [facility] [address] [phone] Nurse, [facility] 05/12/2024 11:00 AM SUPERVISOR SHIPPING Lab [facility] [address] [phone] Lab, [facility] 05/12/2024 11:15 AM SUPERVISOR SHIPPING Office Visit [facility] [address] [phone] Kev Moser MD [address] [place] [phone] 05/12/2024 11:30 AM SUPERVISOR SHIPPING Clinical Support [facility] [address] [phone] Nurse, [facility] documented as of this encounter Visit Diagnoses Not on filedocumented in this encounter Additional Health Concerns Assessment Noted Time PHQ-9 Depression Total Score: 0 11/25/19 21 11:34 AM CDT documented as of this encounter Care Teams Home Staging Specialist Relationship Specialty Start Date End Date Scott Oneill MD PCP - General Internal Medicine 04/29/17 Kev Prince DO Gastroenterology 04/29/17 12/09/22 Tavo Mishra MD [address] [place] [address] [phone] Internal Medicine 04/29/17 Gilmer Barnard MD [address] [place] [address] [phone] Consulting Physician Internal Medicine 08/28/17 4 Kev Moser MD [address] [place] [phone] Consulting Physician Oncology 02/09/20 documented as of this encounter
--- OUTSIDE RECORDS SUMMARY | 2024-04-04 01:30 | XMS_ITS | Encounter Summary ---
Author Organization [facility] Address [address] [place] [address] Phone Care Team Providers Care Drop Pit Worker Name Role Phone Scott Oneill MD Primary Care Provider Kev Prince DO Unavailable [phone] Tavo Mishra MD Unavailable [phone] Gilmer Barnard MD Unavailable [phone] Kev Moser MD Unavailable [phone] Reason for Visit * Reason Comments Follow-up Other Eliquis sample dispe nse Encounter Details Date Type Department Care Team (Latest Contact Info) Description 03/01/2022 11:30 AM CLAIM REPRESENTATIVE Office Visit [facility] [place] [address] [place] [phone] Sindi Qiu, CURBSTONE SETTER, [employer] [address] [place] [address] Glomerulonephritis (Primary Dx); Iron deficiency anemia due to sideropenic dysphagia; Other autoimmune hemolytic anemia (HCC) Social History [...] on file Legal Sex Male 3:42 PM CLAIM REPRESENTATIVE Gender Identity Not on file Sexual Orientation Not on file COVID-19 Exposure Response Date Recorded In the last 10 days, have yo u been in contact with someone who was confirmed or suspected to have Coronavirus/COVID-19? No / Unsure 03/01/2022 11:00 AM CLAIM REPRESENTATIVE documented as of this encounter Last Filed Vital Signs Vital Sign Reading Time Taken Comments Blood Pressure 140/78 03/01/2022 11:25 AM CLAIM REPRESENTATIVE Pulse 73 03/01/2022 11:25 AM CLAIM REPRESENTATIVE Temperature 36.2 ??C (97.1 ??F) 03/01/2022 11:[address] Respiratory Rate 18 03/01/2022 11:25 AM CLAIM REPRESENTATIVE Oxygen Saturation 96% 03/01/2022 11:25 AM CLAIM REPRESENTATIVE Inhaled Oxygen Concentration - - Weight 95.3 kg (210 lb 1.6 oz) 03/01/2022 11:25 AM CLAIM REPRESENTATIVE Height 165.1 cm (5' 5 ) 03/01/2022 11:25 AM CLAIM REPRESENTATIVE Body Mass Index 34.96 03/01/2022 11:25 AM CLAIM REPRESENTATIVE documented in this encounter Functional Status * Question Answer Date of Assessment Author Little interest or pleasure in doing things Not at all 03/01/2022 11:23 AM CLAIM REPRESENTATIVE Greg, Maia A, RMA Feeling down, depressed, or hopeless Not at all 03/01/2022 11:23 AM CLAIM REPRESENTATIVE Greg, Maia A, RMA * Over the past 2 weeks, how often have you been bothered by any of the following problems? Question Answer Date of Assessment Author Patient Health Questionnaire -2 Score 0 03/01/2022 11:23 AM CLAIM REPRESENTATIVE Greg, Maia A, RMA documented as of this encounter Progress Notes * Sindi Qiu, CURBSTONE SETTER, [employer]ER [employer] - 03/01/2022 11:30 AM CST Images from the original note were not included. Patient: Britton Nielsen Age: 67 y.o. : 1955 Encounter Dept: [facility] Encounter Date: 03/01/2022 Care Team: Current Providers PCP: Scott Oneill MD Care Team Provider: Kev Prince DO Care Team Provider: Tavo Mishra MD Care Team Provider: Gilmer Barnard MD Care Team Provider: Kev Moser MD Encounter Provider: Sindi Qiu APRN, CNP Referring Provider: not found Nurse Practitioner: Sindi Qiu APRN, CNP HISTORY OF PRESENT ILLNESS: Britton returns today for followup. He has been doing well since last visit. He had a colonoscopy which was benign. He has no major changes. He denies any complaints. He continues to follow up with Nephrology who he just saw last week. DIAGNOSIS: 1. Glomerulonephritis, sclerosing (renal biopsy 04/01/17). 2. Significant anemia with bleeding ulcer, chronic kidney disease, and patient is on Cytoxan with iron deficiency. 3. Recurrent bleeding ulcers. 4. Patient had a positive BRIANNA at an outside hospital. 5. Bilateral pulmonary emboli, bilateral lower extremity DVT (10/2017). 6. Coronary artery disease with CABG 06/2020. PAST TREATMENT: 1. Gastroduodenal artery embolization at [facility] 05/2017. 2. Cytoxan 100 mg daily. 3. Bone marrow biopsy 11/03/17 with normocellular marrow and maturating trilineage hematopoiesis with minimal reticulin fibrosis. Normal karyotype and NGS study. 4. EPO 40,000 units q.4 to 8 weeks (poor response, stopped on 01/2019). 5. He is off Cytoxan and prednisone, in remission for his kidney disease. CURRENT TREATMENT: On Eliquis b.i.d. Using samples. [...] Coronary artery disease with CABG 06/2020. PLAN: CBC and iron studies from today are still pending. We will call patient with any abnormalities. Continue to follow with Cardiology and Nephrology. We will follow up with him in one year with repeat labs at that time. He will continue Eliquis. We will provide samples as needed. Encouraged to call in the interim for any questions, problems, or concerns. Dr. Moser [...] effusion. No spine tenderness. LABORATORY/PATHOLOGY/IMAGING NOTES: 1. Labs from today still pending. Kev Moser MD, FACP Sindi Qiu, CUSTOMER SPECIALIST-[facility] Vitals: Vitals: 03/01/22 1125 BP: 140/78 BP Location: Right Arm BP Position: Sitting BP Cuff Size: Regular Pulse: 73 Resp: 18 Temp: 97.1 ??F (36.2 ??C) TempSrc: Temporal SpO2: 96% Weight: 210 lb 1.6 oz (95.3 kg) Height: 5' 5 (1.651 m) Body surface area is 2.09 meters squared. Body mass index is 34.96 kg/m??. Pain Score: 0 - No pain [...] Current Medications: Outpatient Encounter Medications as of 03/01/2022 Medication Sig Dispense Refill ??? apixaban (Eliquis) [...] 30 Tab 0 ??? ergocalciferol (VITAMIN D) 47504 UNIT Capsule Take 50,000 Units by mouth [...] by mouth 2 timesdaily. (Patient not taking: No sig reported) ??? sodium bicarbonate 650 MG Tablet Take 650 mg by mouth 2 times daily. ??? tadalafil (CIALIS) 20 MG Tablet TAKE 1 TABLET BY MOUTH ONCE DAILY NEEDED ??? traMADol (ULTRAM) 50 MG Tablet 0 No facility-administered encounter medications on file as of 03/01/2022. Labs: Lab on 03/01/2022 Component Date Value Ref Range Status ??? Reticulocyte count 03/01/2022 1.18 0.51 - 1.81 % Final ??? RET-He 03/01/2022 29.90 28.20 - 36.60 pg Final Comment: RET-He is a direct assessment of incorporation of iron into erythrocyte hemoglobin. It provides an indirect measure of the iron available for new erythropoiesis over past 2-4 days. ??? WBC 03/01/2022 4.9 4.0 - 10.0 10*3/uL Final ??? HGB 03/01/2022 11.1 (A) 13.7 - 17.5 g/dL Final ??? HCT 03/01/2022 36.3 (A) 40.1 - 51.0 % Final ??? PLT 03/01/2022 157 (A) 163 - 369 10*3/uL Final ??? MPV 03/01/2022 9.6 9.4 - 12.4 fL Final ??? RBC 03/01/2022 3.85 (A) 4.63 - 6.08 10*6/uL Final ??? MCV 03/01/2022 94 79 - 95 fL Final ??? MCH 03/01/2022 28.8 25.6 - 32.2 pg Final ??? MCHC 03/01/2022 30.6 (A) 32.2 - 36.5 g/dL Final ??? RDW 03/01/2022 14.9 (A) 11.6 - 14.4 % Final Cosigned by Kev Moser MD at 03/04/2022 4:02 PM CLAIM REPRESENTATIVE M REPRESENTATIVE M REPRESENTATIVE M REPRESENTATIVE * Frtiz Pena RN - 03/01/2022 11:30 AM CST Eliquis 5mg sample dispense Take one tablet by mouth twice daily. 4 boxes given (56 tabs) LOT#: [id number] EXP: 03/2024 M REPRESENTATIVE documented in this encounter Miscellaneous Notes * Addendum Note - Fritz Pena RN - 03/01/2022 11:30 AM CSTAddended by: FRITZ PENA on: 03/04/2022 09:25 AM Modules accepted: Orders M REPRESENTATIVE documented in this encounter Plan of Treatment Upcoming Encounters Date Type Department Care Team (Late st Contact Info) Description 04/07/2024 11:10 AM CLAIM REPRESENTATIVE Lab [facility] [address] [phone] Lab, [facility] 04/07/2024 11:15 AM CLAIM REPRESENTATIVE Clinical Support [facility] [address] [phone] Nurse, [facility] 05/12/2024 11:00 AM CLAIM REPRESENTATIVE Lab [facility] [address] [phone] Lab, [facility] 05/12/2024 11:15 AM CLAIM REPRESENTATIVE Office Visit [facility] [address] [phone] Kev Moser MD [address] [place] [phone] 05/12/2024 11:30 AM CLAIM REPRESENTATIVE Clinical Support [facility] [address] [phone] Nurse, [facility] documented as of this encounter Visit Diagnoses Diagnosis Glomerulonephritis- Primary Nephritis and nephropathy, not specified as acute or chronic, 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) documented in this encounter Additional Health Concerns Assessment Noted Time PHQ-9 Depression Total Score: 0 11/25/19 21 11:34 AM CDT documented as of this encounter Care Teams Drop Pit Worker Relationship Specialty Start Date End Date Scott Oneill MD PCP - General Internal Medicine 04/29/17 Kev Prince DO Gastroenterology 04/29/17 12/09/22 Tavo Mishra MD [address] [phone] Internal Medicine 04/29/17 Gilmer Barnard MD [address] [place] [phone] Consulting Physician Internal Medicine 08/28/17 4 Kev Moser MD [address] [place] [phone] Consulting Physician Oncology 02/09/20 documented as of this encounter
--- OUTSIDE RECORDS SUMMARY | 2024-04-04 01:30 | XMS_ITS | Encounter Summary ---
Author Organization [facility] Address [address] [place] [address] Phone Care Team Providers Care Acute Dialysis Nurse Name Role Phone Scott Oneill MD Primary Care Provider Kev Prince DO Unavailable [phone] Tavo Mishra MD Unavailable [phone] Gilmer Barnard MD Unavailable [phone] Kev Moser MD Unavailable [phone] Reason for Visit * Reason Comments Other Eliquis 5mg sample d ispense Encounter Details Date Type Department Care Team (Latest Contact Info) Description 12/04/2021 10:00 AM CDT Clinical Support [facility] [address] [phone] Nurse, [facility] Other autoimmune hemolytic anemia (HCC) Social [...] on file 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 No / Unsure 12/04/2021 10:10 AM CDT documented as of this encounter Progress Notes * Fritz Pena, RN - 12/04/2021 10:00 AM CDT Eliquis 5mg sample dispense Take one tablet by mouth twice daily. 4 boxes given (56 tabs) LOT#:??[id number] EXP:??11/2023 documented in this encounter Plan of Treatment Upcoming Encounters Date Type Department Care Team (Late st Contact Info) Description 04/07/2024 11:10 AM AVIATION PROJECT ENGINEER Lab [facility] [address] [address] Lab, [facility] 04/07/2024 11:15 AM AVIATION PROJECT ENGINEER Clinical Support [facility] [address] [phone] Nurse, [facility] 05/12/2024 11:00 AM AVIATION PROJECT ENGINEER Lab [facility] [address] [phone] Lab, [facility] 05/12/2024 11:15 AM AVIATION PROJECT ENGINEER Office Visit [facility] [address] [phone] Kev Moser MD [address] [place] [phone] 05/12/2024 11:30 AM AVIATION PROJECT ENGINEER Clinical Support [facility] [address] [phone] Nurse, [facility] documented as of this encounter Visit Diagnoses Diagnosis Other autoimmune hemolytic anemia (HCC) documented in this encounter Additional Health Concerns Assessment Noted Time PHQ-9 Depression Total Score: 0 11/25/19 11:34 AM CDT documented as of this encounter Care Teams Acute Dialysis Nurse Relationship Specialty Start Date End Date Scott Oneill MD PCP - General Internal Medicine 04/29/17 Kev Prince DO Gastroenterology 04/29/17 12/09/22 Tavo Mishra MD [address] [facility] [address] [place] [address] [phone] Internal Medicine 04/29/17 Gilmer Barnard MD [address] [address] Consulting Physician Internal Medicine 08/28/17 4 Kev Moser MD [address] [place] [phone] Consulting Physician Oncology 02/09/20 documented as of this encounter
--- OUTSIDE RECORDS SUMMARY | 2024-04-04 01:30 | XMS_ITS | Encounter Summary ---
Author Organization [facility] Address [address] [place] [address] Phone Care Team Providers Care Custom Feed Corn Operator Name Role Phone Scott Oneill MD Primary Care Provider Kev Prince DO Unavailable [phone] Tavo Mishra MD Unavailable [phone] Gilmer Barnard MD Unavailable [phone] Kev Moser MD Unavailable [phone] Reason for Visit * Reason Comments Other sample dispense Encounter Details Date Type Department Care Team (Latest Contact Info) Description 01/11/2021 1:45 PM CDT Clinical Support [facility] [address] [phone] Nurse, [facility] Other autoimmune hemolytic anemia (HCC) (Primary Dx) [...] on file Legal Sex Male 3:42 PM 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 No / Unsure 01/11/2021 1:44 PM CDT documented as of this encounter Progress Notes * Josephine Cabrera, RN - 01/11/2021 1:45 PM CDT Dispensed: Samples Eliquis 5 mg tablets Dispensed 4 boxes with 14 tabs per box- 56 tabs dispensed LOT: [id number] All boxes exp 01/20 documented in this encounter Plan of Treatment Upcoming Encounters Date Type Department Care Team (Late st Contact Info) Description 04/07/2024 11:10 AM CORPORATE AIRCRAFT MECHANIC Lab [facility] [address] [address] Lab, [facility] 04/07/2024 11:15 AM CORPORATE AIRCRAFT MECHANIC Clinical Support [facility] [address] [phone] Nurse, [facility] 05/12/2024 11:00 AM CORPORATE AIRCRAFT MECHANIC Lab [facility] [address] [address] Lab, [facility] 05/12/2024 11:15 AM CORPORATE AIRCRAFT MECHANIC Office Visit [facility] [address] [phone] Kev Moser MD [address] [place] [phone] 05/12/2024 11:30 AM CORPORATE AIRCRAFT MECHANIC Clinical Support [facility] [address] [phone] Nurse, [facility] documented as of this encounter Visit Diagnoses Diagnosis Other autoimmune hemolytic anemia (HCC)- Primary documented in this encounter Additional Health Concerns Assessment Noted Time PHQ-9 Depression Total Score: 0 11/25/19 11:34 AM CDT documented as of this encounter Care Teams Custom Feed Corn Operator Relationship Specialty Start Date End Date Scott Oneill MD PCP - General Internal Medicine 04/29/17 Kev Prince DO Gastroenterology 04/29/17 12/09/22 Tavo Mishra MD [address] [place] [address] [phone] Internal Medicine 04/29/17 Gilmer Barnard MD [address] [facility] [address] [place] [phone] Consulting Physician Internal Medicine 08/28/17 4 Kev Moser MD [address] [place] [phone] Consulting Physician Oncology 02/09/20 documented as of this encounter
--- OUTSIDE RECORDS SUMMARY | 2024-04-04 01:30 | XMS_ITS | Encounter Summary ---
Author Organization [facility] Address [address] [place] [address] Phone Care Team Providers Care Graphics Software Engineer Name Role Phone Scott Oneill MD Primary Care Provider [phone] Kev Prince DO Unavailable [phone] Tavo Mishra MD Unavailable [phone] Gilmer Barnard MD Unavailable [phone] eKv Moser MD Unavailable [phone] Encounter Details Date Type Department Care Team (Late st Contact Info) Description 03/02/2021 11:15 AM RAW SAMPLER Lab [facility] [address] [phone] Lab, [facility] Myelofibrosis (HCC); Stage 3a chronic kidney disease (HCC); Iron deficiency anemia due to sideropenic dysphagia [...] on file Legal Sex Male 3:42 PM RAW SAMPLER Gender Identity Not on file Sexual Orientation Not on file COVID-19 Exposure Response Date Recorded In the last month, have you been in contact with someone who was confirmed or suspected to have Coronavirus / COVID-19? No / Unsure 03/02/2021 10:51 AM RAW SAMPLER documented as of this encounter Plan of Treatment Upcoming Encounters Date Type Department Care Team (Late st Contact Info) Description 04/07/2024 11:10 AM RAW SAMPLER Lab [facility] [address] [address] Lab, [facility] 04/07/2024 11:15 AM RAW SAMPLER Clinical Support [facility] [address] [phone] Nurse, [facility] 05/12/2024 11:00 AM RAW SAMPLER Lab [facility] [address] [phone] Lab, [facility] 05/12/2024 11:15 AM RAW SAMPLER Office Visit [facility] [address] [phone] Kev Moser MD [address] [place] [phone] 05/12/2024 11:30 AM RAW SAMPLER Clinical Support [facility] [address] [phone] Nurse, [facility] documented as of this encounter Procedures Procedure Name Priority Date/Time Associated Diagnosis Comments IRON W/ IRON BINDING CAPACITY [place] Routine 03/02/2021 11:00 AM RAW SAMPLER Myelofibrosis (HCC) Stage 3a chronic kidney disease (HCC) Iron deficiency anemia due to sideropenic dysphagia VITAMIN B12 Routine 03/02/2021 11:00 AM RAW SAMPLER Myelofibrosis (HCC) Stage 3a chronic kidney disease (HCC) Iron deficiency anemia due to sideropenic dysphagia RETICULOCYTE COUNT (RETIC) Routine 03/02/2021 11:00 AM RAW SAMPLER Myelofibrosis (HCC) Stage 3a chronic kidney disease (HCC) Iron deficiency anemia due to sideropenic dysphagia FOLIC ACID (FOLATE) Routine 03/02/2021 1 1:00 AM RAW SAMPLER Myelofibrosis (HCC) Stage 3a chronic kidney disease (HCC) Iron deficiency anemia due to sideropenic dysphagia FERRITIN Routine 03/02/2021 11:00 AM RAW SAMPLER Myelofibrosis (HCC) Stage 3a chronic kidney disease (HCC) Iron deficiency anemia due to sideropenic dysphagia CMP (COMPREHENSIVE METABOLIC PANEL) Routine 03/02/2021 11:00 AM RAW SAMPLER Myelofibrosis (HCC) Stage 3a chronic kidney disease (HCC) Iron deficiency anemia due to sideropenic dysphagia COMPLETE BLOOD COUNT (CBC) WITH DIFF Routine 03/02/2021 11:00 AM RAW SAMPLER Myelofibrosis (HCC) Stage 3a chronic kidney disease (HCC) Iron deficiency anemia due to sideropenic dysphagia documented in this encounter Results * (ABNORMAL) COMPLETE BLOOD COUNT (CBC) WITH DIFF (03/02/2021 11:00 AM RAW SAMPLER) WBC 6.7 4.0 - 10.0 10*3/uL [facility] HGB 11.4(L) 13.7 - 17.5 g/dL [facility] HCT 35.1(L) 40.1 - 51.0 % [facility] PLT 173 163 - 369 10*3/uL [facility] MPV 9.7 9.4 - 12.4 fL [facility] RBC 4.08(L) 4.63 - 6.08 10*6/uL [facility] MCV 86 79 - 95 fL [facility] MCH 27.9 25.6 - 32.2 pg [facility] MCHC 32.5 32.2 - 36.5 g/dL [facility] RDW 14.9(H) 11.6 - 14.4 % [facility] Absolute Neutrophil Count 5,122 cells/uL [facility] Absolute Seg Count 5,122 1,440 - 6,600 cells/uL [facility] Absolute Lymph Count 674(L) 760 - 4,000 cells/uL [facility] Absolute Teller Count 607 160 - 1,200 cells/uL [facility] Absolute Eos Count 337(H) 0 - 300 cells/uL [facility] Segmented Neutrophils 76(H) 36 - 66 % [facility] Lymphocytes 10(L) 19 - 40 % [facility] Monocytes 9 4 - 12 % [facility] Eosinophils 5(H) 0 - 3 % [facility] WBC Estimate Normal [facility] Platelet Estimate Normal [facility] RBC Morphology Normal [facility] Blood 03/02/2021 11:0 0 AM RAW SAMPLER Narrative [facility] - 03/02/2021 12:05 PM RAW SAMPLER Release to patient->Immediate Kev Moser MD HEMATOLOGY ORDERABLES Final Result [facility] [address] [place] [address], * (ABNORMAL) CMP (COMPREHENSIVE METABOLIC PANEL) (03/02/2021 11:00 AM RAW SAMPLER) Glucose 89 70 - 105 mg/dL [facility] Blood Urea Nitrogen 47(H) 7 - 25 mg/dL [facility] Creatinine 2.2(H) 0.7 - 1.3 mg/dL [facility] Sodium 138 136 - 145 mEq/L [facility] Potassium 5.0 3.5 - 5.1 mEq/L [facility] Chloride 106 98 - 107 mEq/L [facility] Bicarbonate 23 21 - 31 mEq/L [facility] Total Bilirubin 0.7 0.3 - 1.0 mg/dL [facility] Alk. Phosphatase 104 34 - 104 U/L [facility] Aspartate Aminotransferase 18 13 - 39 U/L [facility] Alanine Aminotransferase 28 7 - 52 U/L [facility] Total Protein 6.5 6.4 - 8.9 g/dL [facility] Albumin 4.3 3.5 - 5.7 g/dL [facility] Calcium 8.8 8.6 - 10.3 mg/dL [facility] Anion Gap 14.0 7.0 - 15.0 mEq/L [facility] Globulin 2.2 2.0 - 3.5 g/dL [facility] EGFR (Non ) 30.0(L) >60.0 ml/min [facility] EGFR () 36.3(L) >60.0 ml/min [facility] Blood 03/02/2021 11:0 0 AM RAW SAMPLER Narrative [facility] - 03/02/2021 11:56 AM RAW SAMPLER IS THE PATIENT REQUIRED TO BE FASTING FOR 8 HOURS?->No Release to patient->Immediate us Kev Moser MD CHEMISTRY ORDERABLES Final Result [facility] [address] [id number], [place] [phone] * (ABNORMAL) FERRITIN (03/02/2021 11:00 AM RAW SAMPLER) Ferritin 398(H) 24 - 336 ng/mL [facility] Blood 03/02/2021 11:0 0 AM RAW SAMPLER Narrative [facility] - 03/05/2021 2:56 PM RAW SAMPLER Release to patient->Immediate us Kev Moser MD CHEMISTRY ORDERABLES Final Result [facility] [address] [place] [address], [place] [phone] * (ABNORMAL) IRON W/ IRON BINDING CAPACITY [place] (03/02/2021 11:00 AM RAW SAMPLER) IRON 63 50 - 212 ug/dL [facility] UIBC 186 155 - 355 ug/dL [facility] TIBC 249(L) 261 - 478 ug/dl [facility] % Saturation 25 20 - 50 % [facility] 03/02/2021 11:0 0 AM RAW SAMPLER [facility] - 03/02/2021 11:56 AM RAW SAMPLER Release to patient->Immediate us Kev Moser MD LAB SEND OUTS Final Resul t Performing Organization Address [facility]/ZIP Co de Phone Number [facility] [address] [place] [address], [place] [phone] * RETICULOCYTE COUNT (RETIC) (03/02/2021 11:00 AM RAW SAMPLER) Reticulocyte count 1.11 0.51 - 1.81 % [facility] RET-He 32.50 28.20 - 36.60 pg [facility] Comment: RET-He is a direct assessment of incorporation of iron into erythrocyte hemoglobin. It provides an indirect measure of the iron available for new erythropoiesis over past 2-4 days. Blood 03/02/2021 11:0 0 AM RAW SAMPLER [facility] - 03/02/2021 11:09 AM RAW SAMPLER Release to patient->Immediate us Kev Moser MD HEMATOLOGY ORDERABLES Final Result Performing Organization Address [facility] Co de Phone Number [facility] Cancer [facility] [address] [place] [address], [place] [phone] * FOLIC ACID (FOLATE) (03/02/2021 11:00 AM RAW SAMPLER) Folate 15.23 >=5.90 ng/mL [facility] Blood 03/02/2021 11:0 0 AM RAW SAMPLER [facility] - 03/05/2021 2:56 PM RAW SAMPLER Release to patient->Immediate us Kev Moser MD CHEMISTRY ORDERABLES Final Result Performing Organization Address City/[facility]/ZIP Co de Phone Number [facility] [place] [address], [place] [phone] * VITAMIN B12 (03/02/2021 11:00 AM RAW SAMPLER) Vitamin B12 269 180 - 914 pg/mL [facility] Blood 03/02/2021 11:0 0 AM RAW SAMPLER Narrative [facility] - 03/05/2021 2:56 PM RAW SAMPLER Release to patient->Immediate Kev Moser MD CHEMISTRY ORDERABLES Final Result [facility] [place] [address], [place] [phone] documented in this encounter Visit Diagnoses Diagnosis Myelofibrosis (HCC) Myelofibrosis Stage 3a chronic kidney disease (HCC) Iron deficiency anemia due to sideropenic dysphagia documented in this encounter Additional Health Concerns Assessment Noted Time PHQ-9 Depression Total Score: 0 11/25/19 21 11:34 AM CDT documented as of this encounter Care Teams Graphics Software Engineer Relationship Specialty Start Date End Date Scott Oneill MD PCP - General Internal Medicine 04/29/17 Kev Prince DO Gastroenterology 04/29/17 12/09/22 Tavo Mishra MD [address] [place] [address] [phone] Internal Medicine 04/29/17 Gilmer Barnard MD [address] [facility] [address] [place] [address] [phone] Consulting Physician Internal Medicine 08/28/17 4 Kev Moser MD [address] [place] [phone] Consulting Physician Oncology 02/09/20 documented as of this encounter
--- OUTSIDE RECORDS SUMMARY | 2024-04-04 01:30 | XMS_ITS | Encounter Summary ---
Author Organization [employer] Care Team Providers Care Career Center Advisor Name Role Phone Scott Oneill MD Primary Care Provider [phone] Kev Prince DO Unavailable [phone] Tavo Mishra MD Unavailable [phone] Gilmer Barnard MD Unavailable [phone] Kev Moser MD Unavailable [phone] Encounter Details Date Type Department Care Team (Latest Contact Info) Description 01/02/2022 Travel Social History Tobacco Use Types Packs/Day [...] on file Legal Sex Male 3:42 PM WEBSITE PROJECT MANAGER Gender Identity Not on file [...] st Contact Info) Description 04/07/2024 11:10 AM WEBSITE PROJECT MANAGER Lab [facility] [address] [address] Lab, [facility] 04/07/2024 11:15 AM WEBSITE PROJECT MANAGER Clinical Support [facility] [address] [address] Nurse, [facility] 05/12/2024 11:00 AM WEBSITE PROJECT MANAGER Lab [facility] [address] [address] Lab, [facility] 05/12/2024 11:15 AM WEBSITE PROJECT MANAGER Office Visit [facility] [address] [phone] Kev Moser MD [address] [place] [phone] 05/12/2024 11:30 AM WEBSITE PROJECT MANAGER Clinical Support [facility] [address] [phone] Nurse, [facility] documented as of this encounter Visit Diagnoses Not on filedocumented in this encounter Additional Health Concerns Assessment Noted Time PHQ-9 Depression Total Score: 0 11/25/19 21 11:34 AM CDT documented as of this encounter Care Teams Career Center Advisor Relationship Specialty Start Date End Date Scott Oneill MD PCP - General Internal Medicine 04/29/17 Kev Prince DO Gastroenterology 04/29/17 12/09/22 Tavo Mishra MD [address] [facility] [address] [place] [address] [phone] Internal Medicine 04/29/17 Gilmer Barnard MD [address] [phone] Consulting Physician Internal Medicine 08/28/17 4 Kev Moser MD [address] [place] [address] Consulting Physician Oncology 02/09/20 documented as of this encounter
--- OUTSIDE RECORDS SUMMARY | 2024-04-04 01:30 | XMS_ITS | Encounter Summary ---
Author Organization [employer] Care Team Providers Care Fan Installer Name Role Phone Scott Oneill MD Primary Care Provider Kev Prince DO Unavailable [phone] Tavo Mishra MD Unavailable Gilmer Barnard MD Unavailable [phone] Kev Moser MD Unavailable [phone] Encounter Details Date Type Department Care Team (Latest Contact Info) Description 02/04/2022 Travel Social History Tobacco Use Types Packs/Day [...] on file Legal Sex Male 3:42 PM LIGHT AIR DEFENSE ARTILLERY CREWMEMBER Gender Identity Not on file Sexual Orientation Not on file COVID-19 Exposure Response Date Recorded In the last 10 days, have yo u been in contact with someone who was confirmed or suspected to have Coronavirus/COVID-19? No / Unsure 02/04/2022 10:00 AM LIGHT AIR DEFENSE ARTILLERY CREWMEMBER documented as of this encounter Plan of Treatment Upcoming Encounters Date Type Department Care Team (Late st Contact Info) Description 04/07/2024 11:10 AM LIGHT AIR DEFENSE ARTILLERY CREWMEMBER Lab [facility] [address] [address] Lab, [facility] 04/07/2024 11:15 AM LIGHT AIR DEFENSE ARTILLERY CREWMEMBER Clinical Support [facility] [address] [phone] Nurse, [facility] 05/12/2024 11:00 AM LIGHT AIR DEFENSE ARTILLERY CREWMEMBER Lab [facility] [address] [address] Lab, [facility] 05/12/2024 11:15 AM LIGHT AIR DEFENSE ARTILLERY CREWMEMBER Office Visit [facility] [address] [phone] Kev Moser MD [address] [place] [phone] 05/12/2024 11:30 AM LIGHT AIR DEFENSE ARTILLERY CREWMEMBER Clinical Support [facility] [address] [phone] Nurse, [facility] documented as of this encounter Visit Diagnoses Not on filedocumented in this encounter Additional Health Concerns Assessment Noted Time PHQ-9 Depression Total Score: 0 11/25/19 21 11:34 AM CDT documented as of this encounter Care Teams Fan Installer Relationship Specialty Start Date End Date Scott Oneill MD PCP - General Internal Medicine 04/29/17 Kev Prince DO Gastroenterology 04/29/17 12/09/22 Tavo Mishra MD [address] [facility] [address] [place] [address] [phone] Internal Medicine 04/29/17 Gilmer Barnard MD [address] [phone] Consulting Physician Internal Medicine 08/28/17 4 Kev Moser MD [address] [place] [address] Consulting Physician Oncology 02/09/20 documented as of this encounter
--- OUTSIDE RECORDS SUMMARY | 2024-04-04 01:30 | XMS_ITS | Encounter Summary ---
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 No / Unsure 11/24/2020 11:15 AM CDT documented as of this encounter Plan of Treatment Upcoming Encounters Date Type Department Care Team (Late st Contact Info) Description 04/07/2024 11:10 AM MACHINIST HELPER MARINE Lab [facility] [address] [address] Lab, [facility] 04/07/2024 11:15 AM MACHINIST HELPER MARINE Clinical Support [facility] [address] [phone] Nurse, [facility] 05/12/2024 11:00 AM MACHINIST HELPER MARINE Lab [facility] [address] [phone] Lab, [facility] 05/12/2024 11:15 AM MACHINIST HELPER MARINE Office Visit [facility] [address] [phone] Kev Moser MD [address] [place] [phone] 05/12/2024 11:30 AM MACHINIST HELPER MARINE Clinical Support [facility] [address] [phone] Nurse, [facility] documented as of this encounter Visit Diagnoses Not on filedocumented in this encounter Additional Health Concerns Assessment Noted Time PHQ-9 Depression Total Score: 0 11/25/19 21 11:34 AM CDT documented as of this encounter Care Teams V Belt Inspector Relationship Specialty Start Date End Date Scott Oneill MD PCP - General Internal Medicine 04/29/17 Kev Prince DO Gastroenterology 04/29/17 12/09/22 Tavo Mishra MD [address] [place] [address] [phone] Internal Medicine 04/29/17 Gilmer Barnard MD [address] [phone] Consulting Physician Internal Medicine 08/28/17 4 Kev Moser MD [address] [place] [address] Consulting Physician Oncology 02/09/20 documented as of this encounter
--- OUTSIDE RECORDS SUMMARY | 2024-04-04 01:30 | XMS_ITS | Encounter Summary ---
Author Organization [facility] Address [address] [place] [address] Phone Care Team Providers Care [employer] Principal Name Role Phone Scott Oneill MD Primary Care Provider Kev Prince DO Unavailable [phone] Tavo Mishra MD Unavailable [phone] Gilmer Barnard MD Unavailable [phone] Kev Moser MD Unavailable [phone] Reason for Visit * Reason Comments Other Eliquis 5mg Sample d ispense Encounter Details Date Type Department Care Team (Latest Contact Info) Description 06/27/2021 8:35 AM CDT Clinical Support [facility] [address] [phone] Nurse, [facility] Other autoimmune hemolytic anemia (HCC) Social [...] on file Legal Sex Male 3:42 PM WATER JET OPERATOR Gender Identity Not on file Sexual Orientation Not on file COVID-19 Exposure Response Date Recorded In the last 10 days, have yo u been in contact with someone who was confirmed or suspected to have Coronavirus/COVID-19? No / Unsure 06/27/2021 11:45 AM CDT documented as of this encounter Progress Notes * Fritz Pena, RN - 06/27/2021 8:35 AM CDT Eliquis 5mg sample dispense Take one tablet by mouth twice daily. 4 boxes given (56 tabs) LOT#:??[id number] EXP:??09/2023 documented in this encounter Plan of Treatment Upcoming Encounters Date Type Department Care Team (Late st Contact Info) Description 04/07/2024 11:10 AM WATER JET OPERATOR Lab [facility] [address] [address] Lab, [facility] 04/07/2024 11:15 AM WATER JET OPERATOR Clinical Support [facility] [address] [phone] Nurse, [facility] 05/12/2024 11:00 AM WATER JET OPERATOR Lab [facility] [address] [phone] Lab, [facility] 05/12/2024 11:15 AM WATER JET OPERATOR Office Visit [facility] [address] [phone] Kev Moser MD [address] [place] [phone] 05/12/2024 11:30 AM WATER JET OPERATOR Clinical Support [facility] [address] [phone] Nurse, [facility] documented as of this encounter Visit Diagnoses Diagnosis Other autoimmune hemolytic anemia (HCC) documented in this encounter Additional Health Concerns Assessment Noted Time PHQ-9 Depression Total Score: 0 11/25/19 11:34 AM CDT documented as of this encounter Care Teams Elementary School Principal Relationship Specialty Start Date End Date Scott Oneill MD PCP - General Internal Medicine 04/29/17 Kev Prince DO Gastroenterology 04/29/17 12/09/22 Tavo Mishra MD [address] [facility] [address] [place] [address] [phone] Internal Medicine 04/29/17 Gilmer Barnard MD [address] [address] Consulting Physician Internal Medicine 08/28/17 4 Kev Moser MD [address] [place] [phone] Consulting Physician Oncology 02/09/20 documented as of this encounter
--- OUTSIDE RECORDS SUMMARY | 2024-04-04 01:30 | XMS_ITS | Encounter Summary ---
Author Organization [employer] Care Team Providers Care Forward Air Controller/Air Officer Name Role Phone Scott Oneill MD Primary Care Provider Kev Prince DO Unavailable [phone] Tavo Mishra MD Unavailable [phone] Gilmer Barnard MD Unavailable [phone] Kev Moser MD Unavailable [phone] Encounter Details Date Type Department Care Team (Latest Contact Info) Description 05/07/2021 Travel Social History Tobacco Use Types Packs/Day [...] on file Legal Sex Male 3:42 PM COMMISSIONER OF CONCILIATION Gender Identity Not on file Sexual Orientation Not on file COVID-19 Exposure Response Date Recorded In the last month, have you been in contact with someone who was confirmed or suspected to have Coronavirus / COVID-19? No / Unsure 05/07/2021 12:01 PM COMMISSIONER OF CONCILIATION documented as of this encounter Plan of Treatment Upcoming Encounters Date Type Department Care Team (Late st Contact Info) Description 04/07/2024 11:10 AM COMMISSIONER OF CONCILIATION Lab [facility] [address] [phone] Lab, [facility] 04/07/2024 11:15 AM COMMISSIONER OF CONCILIATION Clinical Support [facility] [address] [phone] Nurse, [facility] 05/12/2024 11:00 AM COMMISSIONER OF CONCILIATION Lab [facility] [address] [phone] Lab, [facility] 05/12/2024 11:15 AM COMMISSIONER OF CONCILIATION Office Visit [facility] [address] [phone] Kev Moser MD [address] [place] [phone] 05/12/2024 11:30 AM COMMISSIONER OF CONCILIATION Clinical Support [facility] [address] [phone] Nurse, [facility] documented as of this encounter Visit Diagnoses Not on filedocumented in this encounter Additional Health Concerns Assessment Noted Time PHQ-9 Depression Total Score: 0 11/25/19 21 11:34 AM CDT documented as of this encounter Care Teams Forward Air Controller/Air Officer Relationship Specialty Start Date End Date Scott Oneill MD PCP - General Internal Medicine 04/29/17 Kev Prince DO Gastroenterology 04/29/17 12/09/22 Tavo Mishra MD [address] [place] [address] [phone] Internal Medicine 04/29/17 Gilmer Barnard MD [address] [place] [address] [phone] Consulting Physician Internal Medicine 08/28/17 4 Kev Moser MD [address] [place] [address] Consulting Physician Oncology 02/09/20 documented as of this encounter
--- OUTSIDE RECORDS SUMMARY | 2024-04-04 01:30 | XMS_ITS | Encounter Summary ---
Author Organization [facility] Address [address] [place] [address] Phone Care Team Providers Care Coroner'S Juror Name Role Phone Scott Oneill MD Primary Care Provider Kev Prince DO Unavailable [phone] Tavo Mishra MD Unavailable [phone] Gilmer Barnard MD Unavailable [phone] Kev Moser MD Unavailable [phone] Reason for Visit * Reason Comments Other Encounter Details Date Type Department Care Team (Latest Contact Info) Description 08/30/2021 10:00 AM CDT Clinical Support [facility] [address] [phone] Nurse, [facility] [...] on file 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 No / Unsure 08/30/2021 10:53 AM CDT documented as of this encounter Progress Notes * Fritz Pena, RN - 08/30/2021 10:00 AM CDT Eliquis 5mg sample dispense Take one tablet by mouth twice daily. 4 boxes given (56 tabs) LOT#:??[id number] EXP:??08/2023 documented in this encounter Plan of Treatment Upcoming Encounters Date Type Department Care Team (Late st Contact Info) Description 04/07/2024 11:10 AM WATCH PARTS INSPECTOR Lab [facility] [address] [address] Lab, [facility] 04/07/2024 11:15 AM WATCH PARTS INSPECTOR Clinical Support [facility] [address] [phone] Nurse, [facility] 05/12/2024 11:00 AM WATCH PARTS INSPECTOR Lab [facility] [address] [address] Lab, [facility] 05/12/2024 11:15 AM WATCH PARTS INSPECTOR Office Visit [facility] [address] [phone] Kev Moser MD [address] [place] [phone] 05/12/2024 11:30 AM WATCH PARTS INSPECTOR Clinical Support [facility] [address] [phone] Nurse, [facility] documented as of this encounter Visit Diagnoses Diagnosis Other autoimmune hemolytic anemia (HCC) documented in this encounter Additional Health Concerns Assessment Noted Time PHQ-9 Depression Total Score: 0 11/25/19 11:34 AM CDT documented as of this encounter Care Teams Coroner'S Juror Relationship Specialty Start Date End Date Scott Oneill MD PCP - General Internal Medicine 04/29/17 Kev Prince DO Gastroenterology 04/29/17 12/09/22 Tavo Mishra MD [address] [facility] [facility] [address] [place] [address] [phone] Internal Medicine 04/29/17 Gilmer Barnard MD [address] [address] Consulting Physician Internal Medicine 08/28/17 4 Kev Moser MD [address] [place] [phone] Consulting Physician Oncology 02/09/20 documented as of this encounter
--- OUTSIDE RECORDS SUMMARY | 2024-04-04 01:30 | XMS_ITS | Encounter Summary ---
Author Organization [employer] Care Team Providers Care Supervisor Assembly And Packing Name Role Phone Scott Oneill MD Primary Care Provider Kev Prince DO Unavailable [phone] Tavo Mishra MD Unavailable Gilmer Barnard MD Unavailable [phone] Kev Moser MD Unavailable [phone] Encounter Details Date Type Department Care Team (Latest Contact Info) Description 02/06/2021 Travel Social History Tobacco Use Types Packs/Day [...] on file Legal Sex Male 3:42 PM NURSES SUPERINTENDENT Gender Identity Not on file Sexual Orientation Not on file COVID-19 Exposure Response Date Recorded In the last month, have you been in contact with someone who was confirmed or suspected to have Coronavirus / COVID-19? No / Unsure 02/06/2021 1:47 PM NURSES SUPERINTENDENT documented as of this encounter Plan of Treatment Upcoming Encounters Date Type Department Care Team (Late st Contact Info) Description 04/07/2024 11:10 AM NURSES SUPERINTENDENT Lab [facility] [address] [phone] Lab, [facility] 04/07/2024 11:15 AM NURSES SUPERINTENDENT Clinical Support [facility] [address] [phone] Nurse, [facility] 05/12/2024 11:00 AM NURSES SUPERINTENDENT Lab [facility] [address] [phone] Lab, [facility] 05/12/2024 11:15 AM NURSES SUPERINTENDENT Office Visit [facility] [address] [phone] Kev Moser MD [address] [place] [phone] 05/12/2024 11:30 AM NURSES SUPERINTENDENT Clinical Support [facility] [address] [phone] Nurse, [facility] documented as of this encounter Visit Diagnoses Not on filedocumented in this encounter Additional Health Concerns Assessment Noted Time PHQ-9 Depression Total Score: 0 11/25/19 21 11:34 AM CDT documented as of this encounter Care Teams Supervisor Assembly And Packing Relationship Specialty Start Date End Date Scott Oneill MD PCP - General Internal Medicine 04/29/17 Kev Prince DO Gastroenterology 04/29/17 12/09/22 Tavo Mishra MD [address] [place] [address] [phone] Internal Medicine 04/29/17 Gilmer Barnard MD [address] [place] [address] [phone] Consulting Physician Internal Medicine 08/28/17 4 Kev Moser MD [address] [place] [phone] Consulting Physician Oncology 02/09/20 documented as of this encounter
--- OUTSIDE RECORDS SUMMARY | 2024-04-04 01:30 | XMS_ITS | Encounter Summary ---
Author Organization [facility] Address [address] [place] [address] Phone Care Team Providers Care Meat Wrapper Name Role Phone Scott Oneill MD Primary Care Provider Kev Prince DO Unavailable [phone] Tavo Mishra MD Unavailable [phone] Gilmer Barnard MD Unavailable [phone] Kev Moser MD Unavailable [phone] Reason for Visit * Reason Comments Other Eliquis 5mg sample d ispense Encounter Details Date Type Department Care Team (Latest Contact Info) Description 05/07/2021 12:00 PM KIDNEY PULLER Clinical Support [facility] [address] [phone] Nurse, [facility] Other autoimmune hemolytic anemia (HCC) Social [...] on file Legal Sex Male 3:42 PM KIDNEY PULLER Gender Identity Not on file Sexual Orientation Not on file COVID-19 Exposure Response Date Recorded In the last month, have you been in contact with someone who was confirmed or suspected to have Coronavirus / COVID-19? No / Unsure 05/07/2021 12:01 PM KIDNEY PULLER documented as of this encounter Progress Notes * Fritz Pena, RN - 05/07/2021 12:00 PM CST Eliquis 5mg sample dispense Take one tablet by mouth twice daily. 4 boxes given (56 tabs) LOT#: [id number] EXP: 12/2022 EY PULLER documented in this encounter Plan of Treatment Upcoming Encounters Date Type Department Care Team (Late st Contact Info) Description 04/07/2024 11:10 AM KIDNEY PULLER Lab [facility] [address] [address] Lab, [facility] 04/07/2024 11:15 AM KIDNEY PULLER Clinical Support [facility] [address] [phone] Nurse, [facility] 05/12/2024 11:00 AM KIDNEY PULLER Lab [facility] [address] [address] Lab, [facility] 05/12/2024 11:15 AM KIDNEY PULLER Office Visit [facility] [address] [phone] Kev Moser MD [address] [place] [phone] 05/12/2024 11:30 AM KIDNEY PULLER Clinical Support [facility] [address] [phone] Nurse, [facility] documented as of this encounter Visit Diagnoses Diagnosis Other autoimmune hemolytic anemia (HCC) documented in this encounter Additional Health Concerns Assessment Noted Time PHQ-9 Depression Total Score: 0 11/25/19 21 11:34 AM CDT documented as of this encounter Care Teams Meat Wrapper Relationship Specialty Start Date End Date Scott Oneill MD PCP - General Internal Medicine 04/29/17 Kev Prince DO Gastroenterology 04/29/17 12/09/22 Tavo Mishra MD [address] [facility] [address] [place] [address] [phone] Internal Medicine 04/29/17 Gilmer Barnard MD [address] [address] Consulting Physician Internal Medicine 08/28/17 4 Kev Moser MD [address] [place] [phone] Consulting Physician Oncology 02/09/20 documented as of this encounter
--- OUTSIDE RECORDS SUMMARY | 2024-04-04 01:30 | XMS_ITS | Encounter Summary ---
Author Organization [employer] Care Team Providers Care Hospice Massage Therapist Name Role Phone Scott Oneill MD Primary Care Provider [phone] Kev Prince DO Unavailable [phone] Tavo Mishra MD Unavailable [phone] Gilmer Barnard MD Unavailable [phone] Kev Moser MD Unavailable [phone] Encounter Details Date Type Department Care Team (Latest Contact Info) Description 06/27/2021 Travel Social History Tobacco Use Types Packs/Day [...] Legal Sex Male 3:42 PM MEDICAL BILLING AND CODING INSTRUCTOR Gender Identity Not on file Sexual [...] Info) Description 04/07/2024 11:10 AM MEDICAL BILLING AND CODING INSTRUCTOR Lab [facility] [address] [address] Lab, [facility] 04/07/2024 11:15 AM MEDICAL BILLING AND CODING INSTRUCTOR Clinical Support [facility] [address] [address] Nurse, [facility] 05/12/2024 11:00 AM MEDICAL BILLING AND CODING INSTRUCTOR Lab [facility] [address] [address] Lab, [facility] 05/12/2024 11:15 AM MEDICAL BILLING AND CODING INSTRUCTOR Office Visit [facility] [address] [phone] Kev Moser MD [address] [place] [phone] 05/12/2024 11:30 AM MEDICAL BILLING AND CODING INSTRUCTOR Clinical Support [facility] [address] [address] Nurse, [facility] documented as of this encounter Visit Diagnoses Not on filedocumented in this encounter Additional Health Concerns Assessment Noted Time PHQ-9 Depression Total Score: 0 11/25/19 21 11:34 AM CDT documented as of this encounter Care Teams Hospice Massage Therapist Relationship Specialty Start Date End Date Scott Oneill MD PCP - General Internal Medicine 04/29/17 Kev Prince DO Gastroenterology 04/29/17 12/09/22 Tavo Mishra MD [address] [facility] [address] [place] [address] [phone] Internal Medicine 04/29/17 Gilmer Barnard MD [address] [phone] Consulting Physician Internal Medicine 08/28/17 4 Kev Moser MD [address] [place] [phone] Consulting Physician Oncology 02/09/20 documented as of this encounter
--- OUTSIDE RECORDS SUMMARY | 2024-04-04 01:30 | XMS_ITS | Encounter Summary ---
Author Organization [facility] Address [address] [place] [address] Phone Care Team Providers Care Senior Government Program Analyst Name Role Phone Scott Oneill MD Primary Care Provider Kev Prince DO Unavailable [phone] Tavo Mishra MD Unavailable [phone] Gilmer Barnard MD Unavailable [phone] Kev Moser MD Unavailable [phone] Reason for Visit * Reason Comments Other Medication dispense Encounter Details Date Type Department Care Team (Latest Contact Info) Description 08/02/2021 12:00 PM CDT Clinical Support [facility] [address] [phone] Nurse, [facility] Iron deficiency anemia due to sideropenic [...] on file Legal Sex Male 3:42 PM SCIENCE INTERN Gender Identity Not on file Sexual Orientation Not on file documented as of this encounter Progress Notes * Karuna López - 08/02/2021 12:00 PM CDT Eliquis 5mg sample dispense Take one tablet by mouth twice daily. 4 boxes given (56 tabs) LOT#:??[id number] EXP:??07/2023 documented in this encounter Plan of Treatment Upcoming Encounters Date Type Department Care Team (Late st Contact Info) Description 04/07/2024 11:10 AM SCIENCE INTERN Lab [facility] [address] [phone] Lab, [facility] 04/07/2024 11:15 AM SCIENCE INTERN Clinical Support [facility] [address] [phone] Nurse, [facility] 05/12/2024 11:00 AM SCIENCE INTERN Lab [facility] [address] [phone] Lab, [facility] 05/12/2024 11:15 AM SCIENCE INTERN Office Visit [facility] [address] [phone] Kev Moser MD [address] [place] [phone] 05/12/2024 11:30 AM SCIENCE INTERN Clinical Support [facility] [address] [phone] Nurse, [facility] documented as of this encounter Visit Diagnoses Diagnosis 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 documented in this encounter Additional Health Concerns Assessment Noted Time PHQ-9 Depression Total Score: 0 11/25/19 21 11:34 AM CDT documented as of this encounter Care Teams Senior Government Program Analyst Relationship Specialty Start Date End Date Scott Oneill MD PCP - General Internal Medicine 04/29/17 Kev Prince DO Gastroenterology 04/29/17 12/09/22 Tavo Mishra MD [address] [facility] [address] [place] [address] [phone] Internal Medicine 04/29/17 Gilmer Barnard MD [address] [place] [address] [phone] Consulting Physician Internal Medicine 08/28/17 4 Kev Moser MD [address] [place] [phone] Consulting Physician Oncology 02/09/20 documented as of this encounter
--- OUTSIDE RECORDS SUMMARY | 2024-04-04 01:30 | XMS_ITS | Encounter Summary ---
Author Organization [facility] Address [address] [place] [address] Phone Care Team Providers Care Day Care Supervisor Name Role Phone Scott Oneill MD Primary Care Provider [phone] Kev Prince DO Unavailable [phone] Tavo Mishra MD Unavailable [phone] Gilmer Barnard MD Unavailable [phone] Kev Moser MD Unavailable [phone] Encounter Details Date Type Department Care Team (Late st Contact Info) Description 03/01/2022 11:15 AM LAND RECLAMATION SPECIALIST Lab [facility] [address] [phone] Lab, [facility] Other autoimmune hemolytic anemia (HCC); Stage 3a chronic kidney disease (HCC); Iron deficiency anemia due to sideropenic dysphagia; Iron deficiency anemia, unspecified iron deficiency anemia type Social History Tobacco Use Types Packs/Day [...] on file Legal Sex Male 3:42 PM LAND RECLAMATION SPECIALIST Gender Identity Not on file Sexual Orientation Not on file COVID-19 Exposure Response Date Recorded In the last 10 days, have yo u been in contact with someone who was confirmed or suspected to have Coronavirus/COVID-19? No / Unsure 03/01/2022 11:00 AM LAND RECLAMATION SPECIALIST documented as of this encounter Functional Status * Question Answer Date of Assessment Author Little interest or pleasure in doing things Not at all 03/01/2022 11:23 AM LAND RECLAMATION SPECIALIST Maia Garza RMA Feeling down, depressed, or hopeless Not at all 03/01/2022 11:23 AM LAND RECLAMATION SPECIALIST Maia Garza RMA * Over the past 2 weeks, how often have you been bothered by any of the following problems? Question Answer Date of Assessment Author Patient Health Questionnaire -2 Score 0 03/01/2022 11:23 AM LAND RECLAMATION SPECIALIST Maia Garza RMA documented as of this encounter Plan of Treatment Upcoming Encounters Date Type Department Care Team (Late st Contact Info) Description 04/07/2024 11:10 AM LAND RECLAMATION SPECIALIST Lab [facility] [address] [phone] Lab, [facility] 04/07/2024 11:15 AM LAND RECLAMATION SPECIALIST Clinical Support [facility] [address] [phone] Nurse, [facility] 05/12/2024 11:00 AM LAND RECLAMATION SPECIALIST Lab [facility] [address] [phone] Lab, [facility] 05/12/2024 11:15 AM LAND RECLAMATION SPECIALIST Office Visit [facility] [address] [phone] Kev Moser MD [address] [place] [phone] 05/12/2024 11:30 AM LAND RECLAMATION SPECIALIST Clinical Support [facility] [address] [phone] Nurse, [facility] documented as of this encounter Procedures Procedure Name Priority Date/Time Associated Diagnosis Comments IRON W/ IRON BINDING CAPACITY [place] Routine 03/01/2022 11:09 AM LAND RECLAMATION SPECIALIST Other autoimmune hemolytic anemia (HCC) Stage 3a chronic kidney disease (HCC) Iron deficiency anemia due to sideropenic dysphagia Iron deficiency anemia, unspecified iron deficiency anemia type VITAMIN B12 Routine 03/01/2022 11:09 AM LAND RECLAMATION SPECIALIST Other autoimmune hemolytic anemia (HCC) Stage 3a chronic kidney disease (HCC) Iron deficiency anemia due to sideropenic dysphagia Iron deficiency anemia, unspecified iron deficiency anemia type RETICULOCYTE COUNT (RETIC) Routine 03/01/2022 11:09 AM LAND RECLAMATION SPECIALIST Other autoimmune hemolytic anemia (HCC) Stage 3a chronic kidney disease (HCC) Iron deficiency anemia due to sideropenic dysphagia Iron deficiency anemia, unspecified iron deficiency anemia type LACTATE DEHYDROGENASE (LD) Routine 03/01/2022 11:09 AM LAND RECLAMATION SPECIALIST Other autoimmune hemolytic anemia (HCC) Stage 3a chronic kidney disease (HCC) Iron deficiency anemia due to sideropenic dysphagia Iron deficiency anemia, unspecified iron deficiency anemia type FOLIC ACID (FOLATE) Routine 03/01/2022 1 1:09 AM LAND RECLAMATION SPECIALIST Other autoimmune hemolytic anemia (HCC) Stage 3a chronic kidney disease (HCC) Iron deficiency anemia due to sideropenic dysphagia Iron deficiency anemia, unspecified iron deficiency anemia type FERRITIN Routine 03/01/2022 11:09 AM LAND RECLAMATION SPECIALIST Other autoimmune hemolytic anemia (HCC) Stage 3a chronic kidney disease (HCC) Iron deficiency anemia due to sideropenic dysphagia Iron deficiency anemia, unspecified iron deficiency anemia type CMP (COMPREHENSIVE METABOLIC PANEL) Routine 03/01/2022 11:09 AM LAND RECLAMATION SPECIALIST Other autoimmune hemolytic anemia (HCC) Stage 3a chronic kidney disease (HCC) Iron deficiency anemia due to sideropenic dysphagia Iron deficiency anemia, unspecified iron deficiency anemia type COMPLETE BLOOD COUNT (CBC) WITH DIFF Routine 03/01/2022 11:09 AM LAND RECLAMATION SPECIALIST Other autoimmune hemolytic anemia (HCC) Stage 3a chronic kidney disease (HCC) Iron deficiency anemia due to sideropenic dysphagia Iron deficiency anemia, unspecified iron deficiency anemia type documented in this encounter Results * (ABNORMAL) COMPLETE BLOOD COUNT (CBC) WITH DIFF (03/01/2022 11:09 AM LAND RECLAMATION SPECIALIST) WBC 4.9 4.0 - 10.0 10*3/uL [facility] HGB 11.1(L) 13.7 - 17.5 g/dL [facility] HCT 36.3(L) 40.1 - 51.0 % [facility] PLT 157(L) 163 - 369 10*3/uL [facility] MPV 9.6 9.4 - 12.4 fL [facility] RBC 3.85(L) 4.63 - 6.08 10*6/uL [facility] MCV 94 79 - 95 fL [facility] MCH 28.8 25.6 - 32.2 pg [facility] MCHC 30.6(L) 32.2 - 36.5 g/dL [facility] RDW 14.9(H) 11.6 - 14.4 % [facility] Absolute Neutrophil Count 3,451 cells/uL [facility] Absolute Seg Count 3,451 1,440 - 6,600 cells/uL [facility] Absolute Lymph Count 632(L) 760 - 4,000 cells/uL [facility] Absolute Towns Count 535 160 - 1,200 cells/uL [facility] Absolute Eos Count 194 0 - 300 cells/uL [facility] Absolute Baso Count 49 0 - 100 cells/uL [facility] Segmented Neutrophils 71(H) 36 - 66 % [facility] Lymphocytes 13(L) 19 - 40 % [facility] Monocytes 11 4 - 12 % [facility] Eosinophils 4(H) 0 - 3 % [facility] Basophils 1 0 - 1 % [facility] WBC Estimate Normal [facility] Platelet Estimate Low [facility] RBC Morphology Abnormal [facility] Anisocytosis 1+ [facility] Blood 03/01/2022 11:0 9 AM LAND RECLAMATION SPECIALIST Narrative [facility] - 03/01/2022 2:16 PM LAND RECLAMATION SPECIALIST Release to patient->Immediate us Kev A Walshauser MD HEMATOLOGY ORDERABLES Final Result [facility] [address] [place] [address], * (ABNORMAL) CMP (COMPREHENSIVE METABOLIC PANEL) (03/01/2022 11:09 AM LAND RECLAMATION SPECIALIST) Glucose 87 70 - 105 mg/dL [facility] Blood Urea Nitrogen 35(H) 7 - 25 mg/dL [facility] Creatinine 2.2(H) 0.7 - 1.3 mg/dL [facility] Sodium 141 136 - 145 mEq/L [facility] Potassium 5.4(H) 3.5 - 5.1 mEq/L [facility] Chloride 108(H) 98 - 107 mEq/L [facility] Bicarbonate 21 21 - 31 mEq/L [facility] Total Bilirubin 0.6 0.3 - 1.0 mg/dL [facility] Alk. Phosphatase 101 34 - 104 U/L [facility] Aspartate Aminotransferase 14 13 - 39 U/L [facility] Alanine Aminotransferase 15 7 - 52 U/L [facility] Total Protein 7.0 6.4 - 8.9 g/dL [facility] Albumin 4.1 3.5 - 5.7 g/dL [facility] Calcium 8.8 8.6 - 10.3 mg/dL [facility] Anion Gap 17.4(H) 7.0 - 15.0 mEq/L [facility] Globulin 2.9 2.0 - 3.5 g/dL [facility] EGFR 32(L) >60 ml/min/1. 73m2 [facility] Comment: This eGFR is calculated using 2020 CKD-EPI Creatinine equation without race modifier based on the NKF-ASN task force recommendations Blood 03/01/2022 11:0 9 AM LAND RECLAMATION SPECIALIST Narrative [facility] - 03/01/2022 3:20 PM LAND RECLAMATION SPECIALIST IS THE PATIENT REQUIRED TO BE FASTING FOR 8 HOURS?->No Release to patient->Immediate us Kev Moser MD CHEMISTRY ORDERABLES Final Result Performing Organization Address City/[facility]/ZIP Co de Phone Number [facility] [address] [place] [address], [place] [phone] * LACTATE DEHYDROGENASE (LD) (03/01/2022 11:09 AM LAND RECLAMATION SPECIALIST) LDH 164 140 - 271 U/L [facility] Blood 03/01/2022 11:0 9 AM LAND RECLAMATION SPECIALIST Narrative [facility] - 03/01/2022 3:20 PM LAND RECLAMATION SPECIALIST Release to patient->Immediate us Kev Moser MD CHEMISTRY ORDERABLES Final Result Performing Organization Address City/[facility] Co de Phone Number [facility] [address] [place] [address], [place] [phone] * FERRITIN (03/01/2022 11:09 AM LAND RECLAMATION SPECIALIST) Ferritin 209 24 - 336 ng/mL [facility] Blood 03/01/2022 11:0 9 AM LAND RECLAMATION SPECIALIST Narrative [facility] 03/04/2022 3:05 PM LAND RECLAMATION SPECIALIST Release to patient->Immediate Kev Moser MD CHEMISTRY ORDERABLES Final Result Performing Organization Address City/[facility] Co de Phone Number [facility] [place] [address], * (ABNORMAL) IRON W/ IRON BINDING CAPACITY [place] (03/01/2022 11:09 AM LAND RECLAMATION SPECIALIST) IRON 39(L) 50 - 212 ug/dL [facility] UIBC 211 155 - 355 ug/dL [facility] TIBC 250(L) 261 - 478 ug/dl [facility] % Saturation 16(L) 20 - 50 % [facility] 03/01/2022 11:0 9 AM LAND RECLAMATION SPECIALIST Narrative [facility] - 03/01/2022 3:20 PM LAND RECLAMATION SPECIALIST Release to patient->Immediate us Kev Moser MD LAB SEND OUTS Final Resul t Performing Organization Address [facility]/ZIP Co de Phone Number [facility] [address] [place] [address], [place] [phone] * RETICULOCYTE COUNT (RETIC) (03/01/2022 11:09 AM LAND RECLAMATION SPECIALIST) Reticulocyte count 1.18 0.51 - 1.81 % [facility] RET-He 29.90 28.20 - 36.60 pg [facility] Comment: RET-He is a direct assessment of incorporation of iron into erythrocyte hemoglobin. It provides an indirect measure of the iron available for new erythropoiesis over past 2-4 days. Blood 03/01/2022 11:0 9 AM LAND RECLAMATION SPECIALIST [facility] - 03/01/2022 11:42 AM LAND RECLAMATION SPECIALIST Release to patient->Immediate us Kev Moser MD HEMATOLOGY ORDERABLES Final Result Performing Organization Address [facility] Co de Phone Number [facility] [address] [place] [address], [place] [phone] * (ABNORMAL) VITAMIN B12 (03/01/2022 11:09 AM LAND RECLAMATION SPECIALIST) Vitamin B12 179(L) 180 - 914 pg/mL [facility] Blood 03/01/2022 11:0 9 AM LAND RECLAMATION SPECIALIST [facility] 03/04/2022 3:05 PM LAND RECLAMATION SPECIALIST Release to patient->Immediate us Kev Moser MD CHEMISTRY ORDERABLES Final Result Performing Organization Address City/[facility]/ZIP Co de Phone Number [facility] [place] [address], [place] [phone] * FOLIC ACID (FOLATE) (03/01/2022 11:09 AM LAND RECLAMATION SPECIALIST) Folate 9.37 >=5.90 ng/mL [facility] Blood 03/01/2022 11:0 9 AM LAND RECLAMATION SPECIALIST Narrative [facility] - 03/04/2022 3:05 PM LAND RECLAMATION SPECIALIST IS THE PATIENT REQUIRED TO BE FASTING FOR 12 HOURS?->No Release to patient->Immediate us Kev Moser MD CHEMISTRY ORDERABLES Final Result [facility] [address] [place] [address], documented in this encounter Visit Diagnoses Diagnosis Other autoimmune hemolytic anemia (HCC) Stage 3a chronic kidney disease (HCC) Iron deficiency anemia due to sideropenic dysphagia Iron deficiency anemia, unspecified iron deficiency anemia type documented in this encounter Additional Health Concerns Assessment Noted Time PHQ-9 Depression Total Score: 0 11/25/19 21 11:34 AM CDT documented as of this encounter Care Teams Day Care Supervisor Relationship Specialty Start Date End Date Scott Oneill MD PCP - General Internal Medicine 04/29/17 Kev Prince DO Gastroenterology 04/29/17 12/09/22 Tavo Mishra MD [address] [address] Internal Medicine 04/29/17 Gilmer Barnard MD [address] [address] Consulting Physician Internal Medicine 08/28/17 4 Kev Moser MD [address] [place] [phone] Consulting Physician Oncology 02/09/20 documented as of this encounter
--- OUTSIDE RECORDS SUMMARY | 2024-04-04 01:30 | XMS_ITS | Encounter Summary ---
Author Organization [facility] Address [address] [place] [address] Phone Care Team Providers Care Physical Testing Supervisor Name Role Phone Scott Oneill MD Primary Care Provider Kev Prince DO Unavailable [phone] Tavo Mishra MD Unavailable [phone] Gilmer Barnard MD Unavailable [phone] Kev Moser MD Unavailable [phone] Encounter Details Date Type Department Care Team (Late st Contact Info) Description 07/19/2021 Telephone [facility] [address] [place] [address] Kev Moser MD [address] [place] [phone] Social History Tobacco Use Types Packs/Day [...] on file Legal Sex Male 3:42 PM CONTACT WORKER LITHOGRAPHY Gender Identity Not on file Sexual Orientation Not on file COVID-19 Exposure Response Date Recorded In the last 10 days, have william u been in contact with someone who was confirmed or suspected to have Coronavirus/COVID-19? No / Unsure 06/27/2021 11:45 AM CDT documented as of this encounter Miscellaneous Notes * Telephone Encounter - Polly Botello RN - 07/26/2021 11:47 AM CDT Images from the original note were not included. Marry Saez Jolene A RN; [employer] Applicator Pool; [facility] Nurse Pool 1 minute ago (11:45 AM) TD PT IS SCHEDULED FOR 09/[address] QUICK * Telephone Encounter - Zahida Montes RN - 07/20/2021 11:37 AM CDT Per referral note notes sent to Dr. Quick. * Telephone Encounter - Zahida Montes RN - 07/19/2021 3:25 PM CDT Order entered for gi consult. Please schedule. * Telephone Encounter - Zahida Montes RN - 07/19/2021 3:23 PM CDT Images from the original note were not included. Kev Moser MD [facility] 1 minute ago (3:21 PM) MW Ok can send to Dr quick, if its going to be along time, he may want to get referral from PCP, can seeif ilsa can see if get him in too Message text * Telephone Encounter - Marry Saez - 07/19/2021 10:53 AM CDT PT CALLED AND WANTED TO LET YOU KNOW HIS PCP DID A COLOGUARD TEST ON HIM AND HE WAS TOLD IT WAS POSITIVE AND HE WOULD LIKE TO HAVE A REFERRAL TO A GI DOCTOR FOR A COLONOSCOPY, COULD YOU PLEASE PLACE THE REFERRAL AND I WILL GET HIM SCHEDULED WITH THE GI DOCTORS? documented in this encounter Plan of Treatment Upcoming Encounters Date Type Department Care Team (Late st Contact Info) Description 04/07/2024 11:10 AM CONTACT WORKER LITHOGRAPHY Lab [facility] [address] [phone] Lab, [facility] 04/07/2024 11:15 AM CONTACT WORKER LITHOGRAPHY Clinical Support [facility] [address] [phone] Nurse, [facility] 05/12/2024 11:00 AM CONTACT WORKER LITHOGRAPHY Lab [facility] [address] [phone] Lab, [facility] 05/12/2024 11:15 AM CONTACT WORKER LITHOGRAPHY Office Visit [facility] [address] [phone] Kev Moser MD [address] [place] [phone] 05/12/2024 11:30 AM CONTACT WORKER LITHOGRAPHY Clinical Support [facility] [address] [phone] Nurse, [facility] documented as of this encounter Visit Diagnoses Diagnosis 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 documented in this encounter Additional Health Concerns Assessment Noted Time PHQ-9 Depression Total Score: 0 11/25/19 11:34 AM CDT documented as of this encounter Care Teams Physical Testing Supervisor Relationship Specialty Start Date End Date Scott Oneill MD PCP - General Internal Medicine 04/29/17 Kev Prince DO Gastroenterology 04/29/17 12/09/22 Tavo Mishra MD [address] [place] [phone] Internal Medicine 04/29/17 Gilmer Barnard MD [address] [place] [phone] Consulting Physician Internal Medicine 08/28/17 4 Kev Moser MD [address] [place] [phone] Consulting Physician Oncology 02/09/20 documented as of this encounter
--- OUTSIDE RECORDS SUMMARY | 2024-04-04 01:30 | XMS_ITS | Encounter Summary ---
Author Organization [facility] Address [address] [place] [address] Phone Care Team Providers Care Leather Whitener Name Role Phone Scott Oneill MD Primary Care Provider Kev Prince DO Unavailable [phone] Tavo Mishra MD Unavailable [phone] Gilmer Barnard MD Unavailable [phone] Kev Moser MD Unavailable [phone] Reason for Visit * Reason Comments Other med dispense Encounter Details Date Type Department Care Team (Latest Contact Info) Description 11/24/2020 11:15 AM CDT Clinical Support [facility] [address] [phone] Nurse, [facility] Other autoimmune hemolytic anemia (HCC) Social History [...] on file Legal Sex Male 3:42 PM DIGITAL CONTENT PRODUCER Gender Identity Not on file Sexual Orientation Not on file COVID-19 Exposure Response Date Recorded In the last month, have you been in contact with someone who was confirmed or suspected to have Coronavirus / COVID-19? No / Unsure 11/24/2020 11:15 AM CDT documented as of this encounter Progress Notes * Zahida Montes RN - 11/24/2020 11:15 AM CDT Dispensed: Samples Eliquis 5 mg tablets Dispensed 4 boxes with 14 tabs per box- 56 tabs dispensed Lot number [id number] for 2 boxes and Lot number [id number] for 2 boxes All boxes exp 11/20 documented in this encounter Plan of Treatment Upcoming Encounters Date Type Department Care Team (Late st Contact Info) Description 04/07/2024 11:10 AM DIGITAL CONTENT PRODUCER Lab [facility] [address] [phone] Lab, [facility] 04/07/2024 11:15 AM DIGITAL CONTENT PRODUCER Clinical Support [facility] [address] [phone] Nurse, [facility] 05/12/2024 11:00 AM DIGITAL CONTENT PRODUCER Lab [facility] [address] [phone] Lab, [facility] 05/12/2024 11:15 AM DIGITAL CONTENT PRODUCER Office Visit [facility] [address] [phone] Kev Moser MD [address] [place] [phone] 05/12/2024 11:30 AM DIGITAL CONTENT PRODUCER Clinical Support [facility] [address] [phone] Nurse, [facility] documented as of this encounter Visit Diagnoses Diagnosis Other autoimmune hemolytic anemia (HCC) documented in this encounter Additional Health Concerns Assessment Noted Time PHQ-9 Depression Total Score: 0 11/25/19 11:34 AM CDT documented as of this encounter Care Teams Leather Whitener Relationship Specialty Start Date End Date Scott Oneill MD PCP - General Internal Medicine 04/29/17 Kev Prince DO Gastroenterology 04/29/17 12/09/22 Tavo Mishra MD [address] [phone] Internal Medicine 04/29/17 Gilmer Barnard MD [address] [address] Consulting Physician Internal Medicine 08/28/17 4 Kev Moser MD [address] [place] [phone] Consulting Physician Oncology 02/09/20 documented as of this encounter
--- OUTSIDE RECORDS SUMMARY | 2024-04-04 01:30 | XMS_ITS | Encounter Summary ---
Author Organization [facility] Address [address] [place] [address] Phone Care Team Providers Care Carpenter Mate Name Role Phone Scott Oneill MD Primary Care Provider Kev Prince DO Unavailable [phone] Tavo Mishra MD Unavailable [phone] Gilmer Barnard MD Unavailable [phone] Kev Moser MD Unavailable [phone] Reason for Visit * Reason Comments Other Eliquis 5mg sample d ispense Encounter Details Date Type Department Care Team (Latest Contact Info) Description 04/09/2021 1:00 PM LANDSCAPING SPECIALIST Clinical Support [facility] [address] [address] Nurse, [facility] Other autoimmune hemolytic anemia (HCC) Social [...] on file Legal Sex Male 3:42 PM LANDSCAPING SPECIALIST Gender Identity Not on file Sexual Orientation Not on file COVID-19 Exposure Response Date Recorded In the last month, have you been in contact with someone who was confirmed or suspected to have Coronavirus / COVID-19? No / Unsure 04/09/2021 12:44 PM LANDSCAPING SPECIALIST documented as of this encounter Progress Notes * Fritz Pena, RN - 04/09/2021 1:00 PM CST Eliquis 5mg sample dispense Take one tablet by mouth twice daily. 4 boxes given (56 tabs) LOT#: [id number] EXP: 06/2022 SCAPING SPECIALIST documented in this encounter Plan of Treatment Upcoming Encounters Date Type Department Care Team (Late st Contact Info) Description 04/07/2024 11:10 AM LANDSCAPING SPECIALIST Lab [facility] [address] [address] Lab, [facility] 04/07/2024 11:15 AM LANDSCAPING SPECIALIST Clinical Support [facility] [address] [address] Nurse, [facility] 05/12/2024 11:00 AM LANDSCAPING SPECIALIST Lab [facility] [address] [address] Lab, [facility] 05/12/2024 11:15 AM LANDSCAPING SPECIALIST Office [facility] [address] [address] Kev Moser MD [address] [place] [address] 05/12/2024 11:30 AM LANDSCAPING SPECIALIST Clinical Support [facility] [address] [address] Nurse, [facility] documented as of this encounter Visit Diagnoses Diagnosis Other autoimmune hemolytic anemia (HCC) documented in this encounter Additional Health Concerns Assessment Noted Time PHQ-9 Depression Total Score: 0 11/25/19 11:34 AM CDT documented as of this encounter Care Teams Carpenter Mate Relationship Specialty Start Date End Date Scott Oneill MD PCP - General Internal Medicine 04/29/17 Kev Prince DO Gastroenterology 04/29/17 12/09/22 Tavo Mishra MD [address] [facility] [address] [place] [address] [phone] Internal Medicine 04/29/17 Gilmer Barnard MD [address] [address] Consulting Physician Internal Medicine 08/28/17 4 Kev Moser MD [address] [place] [phone] Consulting Physician Oncology 02/09/20 documented as of this encounter
--- OUTSIDE RECORDS SUMMARY | 2024-04-04 01:30 | XMS_ITS | Encounter Summary ---
Author Organization [facility] Address [address] [place] [address] Phone Care Team Providers Care Sewer Hand Name Role Phone Scott Oneill MD Primary Care Provider [phone] Kev Prince DO Unavailable [phone] Tavo Mishra MD Unavailable [phone] Gilmer Barnard MD Unavailable [phone] Kev Moser MD Unavailable [phone] Reason for Visit * Reason Onset Date Comments Medication Refill 09/26/2021 Encounter Details Date Type Department Care Team (Late st Contact Info) Description 09/26/2021 Refill [facility] [address] [address] Kev Moser MD [address] [place] [phone] Medication Refill Social History Tobacco Use [...] on file Legal Sex Male 3:42 PM NURSE RECEPTIONIST Gender Identity Not on file Sexual Orientation Not on file COVID-19 Exposure Response Date Recorded In the last 10 days, have yo u been in contact with someone who was confirmed or suspected to have Coronavirus/COVID-19? No / Unsure 08/30/2021 10:53 AM CDT documented as of this encounter Miscellaneous Notes * Telephone Encounter - Xochitl Campos RN - 09/26/2021 4:04 PM CDT Patient picked up samples Eliquis 5mg documented in this encounter Plan of Treatment Upcoming Encounters Date Type Department Care Team (Late st Contact Info) Description 04/07/2024 11:10 AM NURSE RECEPTIONIST Lab [facility] [address] [address] Lab, [facility] 04/07/2024 11:15 AM NURSE RECEPTIONIST Clinical Support [facility] [address] [phone] Nurse, [facility] 05/12/2024 11:00 AM NURSE RECEPTIONIST Lab [facility] [address] [address] Lab, [facility] 05/12/2024 11:15 AM NURSE RECEPTIONIST Office Visit [facility] [address] [phone] Kev Moser MD [address] [place] [phone] 05/12/2024 11:30 AM NURSE RECEPTIONIST Clinical Support [facility] [address] [phone] Nurse, [facility] documented as of this encounter Visit Diagnoses Diagnosis Other autoimmune hemolytic anemia (HCC) documented in this encounter Additional Health Concerns Assessment Noted Time PHQ-9 Depression Total Score: 0 11/25/19 11:34 AM CDT documented as of this encounter Care Teams Sewer Hand Relationship Specialty Start Date End Date Scott Oneill MD PCP - General Internal Medicine 04/29/17 Kev Prince DO Gastroenterology 04/29/17 12/09/22 Tavo Mishra MD [address] [phone] Internal Medicine 04/29/17 Gilmer Barnard MD [address] [address] Consulting Physician Internal Medicine 08/28/17 4 Kev Moser MD [address] [place] [phone] Consulting Physician Oncology 02/09/20 documented as of this encounter
--- OUTSIDE RECORDS SUMMARY | 2024-04-04 01:30 | XMS_ITS | Encounter Summary ---
Author Organization [facility] Address [address] [place] [address] Phone Care Team Providers Care Project Executive Name Role Phone Scott Oneill MD Primary Care Provider [phone] Kev Prince DO Unavailable [phone] Tavo Mishra MD Unavailable [phone] Gilmer Barnard MD Unavailable [phone] Kev Moser MD Unavailable [phone] Reason for Visit * Reason Comments Other Sample dispense Encounter Details Date Type Department Care Team (Latest Contact Info) Description 02/04/2022 12:00 PM CLINICAL COORDINATOR Clinical Support [facility] [address] [phone] Nurse, [facility] [...] on file Legal Sex Male 3:42 PM CLINICAL COORDINATOR Gender Identity Not on file Sexual Orientation Not on file COVID-19 Exposure Response Date Recorded In the last 10 days, have yo u been in contact with someone who was confirmed or suspected to have Coronavirus/COVID-19? No / Unsure 02/04/2022 10:00 AM CLINICAL COORDINATOR documented as of this encounter Progress Notes * Fritz Pena RN - 02/04/2022 12:00 PM CST Eliquis 5mg sample dispense Take one tablet by mouth twice daily. 4 boxes given (56 tabs) LOT#:??[id number] EXP:??11/2023 ICAL COORDINATOR documented in this encounter Plan of Treatment Upcoming Encounters Date Type Department Care Team (Late st Contact Info) Description 04/07/2024 11:10 AM CLINICAL COORDINATOR Lab [facility] [address] [phone] Lab, [facility] 04/07/2024 11:15 AM CLINICAL COORDINATOR Clinical Support [facility] [address] [phone] Nurse, [facility]c [facility] 05/12/2024 11:00 AM CLINICAL COORDINATOR Lab [facility] [address] [address] Lab, [facility] 05/12/2024 11:15 AM CLINICAL COORDINATOR Office Visit [facility] [address] [phone] Kev Moser MD [address] [place] [phone] 05/12/2024 11:30 AM CLINICAL COORDINATOR Clinical Support [facility] [address] [phone] Nurse, [facility] documented as of this encounter Visit Diagnoses Diagnosis Other autoimmune hemolytic anemia (HCC) documented in this encounter Additional Health Concerns Assessment Noted Time PHQ-9 Depression Total Score: 0 11/25/19 21 11:34 AM CDT documented as of this encounter Care Teams Project Executive Relationship Specialty Start Date End Date Scott Oneill MD PCP - General Internal Medicine 04/29/17 Kev Prince DO Gastroenterology 04/29/17 12/09/22 Tavo Mishra MD [address] [place] [address] Internal Medicine 04/29/17 Gilmer Barnard MD [address] [facility] [address] [place] [address] Consulting Physician Internal Medicine 08/28/17 4 Kev Moser MD [address] [place] [phone] Consulting Physician Oncology 02/09/20 documented as of this encounter
--- OUTSIDE RECORDS SUMMARY | 2024-04-04 01:30 | XMS_ITS | Encounter Summary ---
Author Organization [facility] Address [address] [place] [address] Phone Care Team Providers Care Agriscience Technology Instructor Name Role Phone Scott Oneill MD Primary Care Provider [phone] Kev Prince DO Unavailable [phone] Tavo Mishra MD Unavailable [phone] Gilmer Barnard MD Unavailable [phone] Kev Moser MD Unavailable [phone] Reason for Visit * Reason Comments Other ELIQUIS 5MG DISPENSE Encounter Details Date Type Department Care Team (Latest Contact Info) Description 03/02/2021 4:30 PM PROJECT SCIENTIST Clinical Support [facility] [address] [phone] Nurse, [facility] Other autoimmune hemolytic anemia (HCC) [...] file Legal Sex Male 3:42 PM PROJECT SCIENTIST Gender Identity Not on file Sexual Orientation Not on file COVID-19 Exposure Response Date Recorded In the last month, have you been in contact with someone who was confirmed or suspected to have Coronavirus / COVID-19? No / Unsure 03/02/2021 10:51 AM PROJECT SCIENTIST documented as of this encounter Progress Notes * Fritz Pena RN - 03/02/2021 4:30 PM CST Eliquis 5mg sample dispense Take one tablet by mouth twice daily. LOT#: [id number] EXP: 05/2023 ECT SCIENTIST documented in this encounter Plan of Treatment Upcoming Encounters Date Type Department Care Team (Late st Contact Info) Description 04/07/2024 11:10 AM PROJECT SCIENTIST Lab [facility] [address] [phone] Lab, [facility] 04/07/2024 11:15 AM PROJECT SCIENTIST Clinical Support [facility] [address] [phone] Nurse, [facility] 05/12/2024 11:00 AM PROJECT SCIENTIST Lab [facility] [address] [phone] Lab, [facility] 05/12/2024 11:15 AM PROJECT SCIENTIST Office Visit [facility] [address] [phone] Kev Moser MD [address] [place] [phone] 05/12/2024 11:30 AM PROJECT SCIENTIST Clinical Support [facility] [address] [phone] Nurse, [facility] documented as of this encounter Visit Diagnoses Diagnosis Other autoimmune hemolytic anemia (HCC) documented in this encounter Additional Health Concerns Assessment Noted Time PHQ-9 Depression Total Score: 0 11/25/19 21 11:34 AM CDT documented as of this encounter Care Teams Agriscience Technology Instructor Relationship Specialty Start Date End Date Scott Oneill MD PCP - General Internal Medicine 04/29/17 Kev Prince DO Gastroenterology 04/29/17 12/09/22 Tavo Mishra MD [address] [place] [address] Internal Medicine 04/29/17 Gilmer Barnard MD [address] [place] [address] Consulting Physician Internal Medicine 08/28/17 4 Kev Moser MD [address] [place] [phone] Consulting Physician Oncology 02/09/20 documented as of this encounter
--- OUTSIDE RECORDS SUMMARY | 2024-04-04 01:30 | XMS_ITS | Encounter Summary ---
Author Organization [facility] Address [address] [place] [address] Phone Care Team Providers Care Hat Forming Machine Operator Name Role Phone Scott Oneill MD Primary Care Provider [phone] Kev Prince DO Unavailable [phone] aTvo Mishra MD Unavailable [phone] Gilmer Barnard MD Unavailable [phone] Kev Msoer MD Unavailable [phone] Reason for Visit * Reason Comments Other Eliquis 5mg samples Encounter Details Date Type Department Care Team (Latest Contact Info) Description 02/06/2021 2:50 PM RHEUMATOLOGY NURSE Clinical Support [facility] [address] [phone] Nurse, [facility] Other autoimmune hemolytic anemia (HCC) Social [...] on file Legal Sex Male 3:42 PM RHEUMATOLOGY NURSE Gender Identity Not on file Sexual Orientation Not on file COVID-19 Exposure Response Date Recorded In the last month, have you been in contact with someone who was confirmed or suspected to have Coronavirus / COVID-19? No / Unsure 02/06/2021 1:47 PM RHEUMATOLOGY NURSE documented as of this encounter Progress Notes * Fritz Pena RN - 02/06/2021 2:50 PM CST Eliquis 5mg sample dispense Take one tablet by mouth twice daily. LOT#: [id number] EXP: 05/2023 MATOLOGY NURSE documented in this encounter Plan of Treatment Upcoming Encounters Date Type Department Care Team (Late st Contact Info) Description 04/07/2024 11:10 AM RHEUMATOLOGY NURSE Lab [facility] [address] [phone] Lab, [facility] 04/07/2024 11:15 AM RHEUMATOLOGY NURSE Clinical Support [facility] [address] [phone] Nurse, [facility] 05/12/2024 11:00 AM RHEUMATOLOGY NURSE Lab [facility] [address] [phone] Lab, [facility] 05/12/2024 11:15 AM RHEUMATOLOGY NURSE Office Visit [facility] [address] [phone] eKv Moser MD [address] [place] [phone] 05/12/2024 11:30 AM RHEUMATOLOGY NURSE Clinical Support [facility] [address] [phone] Nurse, [facility] documented as of this encounter Visit Diagnoses Diagnosis Other autoimmune hemolytic anemia (HCC) documented in this encounter Additional Health Concerns Assessment Noted Time PHQ-9 Depression Total Score: 0 11/25/19 21 11:34 AM CDT documented as of this encounter Care Teams Hat Forming Machine Operator Relationship Specialty Start Date End Date Scott Oneill MD PCP - General Internal Medicine 04/29/17 Kev Prince DO Gastroenterology 04/29/17 12/09/22 Tavo Mishra MD [address] [place] [address] Internal Medicine 04/29/17 Gilmer Barnard MD [address] [place] [address] Consulting Physician Internal Medicine 08/28/17 4 Kev Moser MD [address] [place] [phone] Consulting Physician Oncology 02/09/20 documented as of this encounter
--- OUTSIDE RECORDS SUMMARY | 2024-04-04 01:30 | XMS_ITS | Encounter Summary ---
Author Organization [facility] Care Team Providers Care Deaf Interpreter Name Role Phone Scott Oneill MD Primary Care Provider [phone] Kev Prince DO Unavailable [phone] Tavo Mishra MD Unavailable [phone] Gilmer Barnard MD Unavailable [phone] Kev Moser MD Unavailable [phone] Encounter Details Date Type Department Care Team (Latest Contact Info) Description 08/02/2021 Travel Social History Tobacco Use Types Packs/Day [...] on file Legal Sex Male 3:42 PM FUNCTIONAL SUPPORT ANALYST Gender Identity Not on file Sexual Orientation Not on file COVID-19 Exposure Response Date Recorded In the last 10 days, have yo u been in contact with someone who was confirmed or suspected to have Coronavirus/COVID-19? No / Unsure 08/02/2021 11:53 AM CDT documented as of this encounter Plan of Treatment Upcoming Encounters Date Type Department Care Team (Late st Contact Info) Description 04/07/2024 11:10 AM FUNCTIONAL SUPPORT ANALYST Lab [facility] [address] [address] Lab, [facility] 04/07/2024 11:15 AM FUNCTIONAL SUPPORT ANALYST Clinical Support [facility] [address] [address] Nurse, [facility] 05/12/2024 11:00 AM FUNCTIONAL SUPPORT ANALYST Lab [facility] [address] [address] Lab, [facility] 05/12/2024 11:15 AM FUNCTIONAL SUPPORT ANALYST Office Visit [facility] [address] [phone] Kev Moser MD [address] [place] [phone] 05/12/2024 11:30 AM FUNCTIONAL SUPPORT ANALYST Clinical Support [facility] [address] [address] Nurse, [facility] documented as of this encounter Visit Diagnoses Not on filedocumented in this encounter Additional Health Concerns Assessment Noted Time PHQ-9 Depression Total Score: 0 11/25/19 21 11:34 AM CDT documented as of this encounter Care Teams Deaf Interpreter Relationship Specialty Start Date End Date Scott Oneill MD PCP - General Internal Medicine 04/29/17 Kev Prince DO Gastroenterology 04/29/17 12/09/22 Tavo Mishra MD [address] [facility] [address] [place] [phone] Internal Medicine 04/29/17 Gilmer Barnard MD [address] [phone] Consulting Physician Internal Medicine 08/28/17 4 Kev Moser MD [address] [place] [address] Consulting Physician Oncology 02/09/20 documented as of this encounter
--- OUTSIDE RECORDS SUMMARY | 2024-04-04 01:30 | XMS_ITS | Encounter Summary ---
Author Organization [employer] Care Team Providers Care Plant Controls Specialist Name Role Phone Scott Oneill MD Primary Care Provider [phone] Kev Prince DO Unavailable [phone] Tavo Mishra MD Unavailable [phone] Gilmer Barnard MD Unavailable [phone] Kev Msoer MD Unavailable [phone] Encounter Details Date Type Department Care Team (Latest Contact Info) Description 08/30/2021 Travel Social History Tobacco Use Types Packs/Day [...] on file Legal Sex Male 3:42 PM PROGRAM REVIEW DIRECTOR Gender Identity Not on file Sexual Orientation [...] st Contact Info) Description 04/07/2024 11:10 AM PROGRAM REVIEW DIRECTOR Lab [facility] [address] [address] Lab, [facility] 04/07/2024 11:15 AM PROGRAM REVIEW DIRECTOR Clinical Support [facility] [address] [address] Nurse, [facility] 05/12/2024 11:00 AM PROGRAM REVIEW DIRECTOR Lab [facility] [address] [address] Lab, [facility] 05/12/2024 11:15 AM PROGRAM REVIEW DIRECTOR Office Visit [facility] [address] [phone] Kev Moser MD [address] [place] [phone] 05/12/2024 11:30 AM PROGRAM REVIEW DIRECTOR Clinical Support [facility] [address] [address] Nurse, [facility] documented as of this encounter Visit Diagnoses Not on filedocumented in this encounter Additional Health Concerns Assessment Noted Time PHQ-9 Depression Total Score: 0 11/25/19 21 11:34 AM CDT documented as of this encounter Care Teams Plant Controls Specialist Relationship Specialty Start Date End Date Scott Oneill MD PCP - General Internal Medicine 04/29/17 Kev Prince DO Gastroenterology 04/29/17 12/09/22 Tavo Mishra MD [address] COUNTS INCLUDE [facility]S AT [facility] [address] [place] [phone] Internal Medicine 04/29/17 Gilmer Barnard MD [address] [phone] Consulting Physician Internal Medicine 08/28/17 4 Kev Moser MD [address] [place] [address] Consulting Physician Oncology 02/09/20 documented as of this encounter
--- OUTSIDE RECORDS SUMMARY | 2024-04-04 01:31 | XMS_ITS | Encounter Summary ---
Author Organization [facility] Address [address] [place] [address] Care Team Providers Care Oil Field Worker Name Role Phone Scott Oneill MD Primary Care Provider Kev Prince DO Unavailable [phone] Tavo Mishra MD Unavailable [phone] Gilmer Barnard MD Unavailable [phone] Kev Moser MD Unavailable [phone] Encounter Details Date Type Department Care Team (Late st Contact Info) Description 04/06/2020 1:30 PM CADWORX PIPING DESIGNER Rapid Evaluation [place] [facility] Mobile Testing Merged With [facility] [address] [place] [address] Social History Tobacco Use Types Packs/Day Years Used Date Smoking Tobacco: Former Cigarettes 1 30 0 05/23/1981 - 05/23/2011 Smokeless Tobacco: Never Alcohol Use Standard Drinks/Week Comments No 0 (1 standard drink = 0.6 oz pur e alcohol) PHQ-2 Answer Date Recorded Total Score - Questions 1-9 0 10/0 11/2019 Sex and Gender Information Value Date Recorded Sex Assigned at Not on file Legal Sex Male 3:42 PM CADWORX PIPING DESIGNER Gender Identity Not on file Sexual Orientation Not on file COVID-19 Exposure Response Date Recorded In the last month, have you been in contact with someone who was confirmed or suspected to have Coronavirus / COVID-19? No / Unsure 04/06/2020 12:00 PM CADWORX PIPING DESIGNER documented as of this encounter Plan of Treatment Upcoming Encounters Date Type Department Care Team (Late st Contact Info) Description 04/07/2024 11:10 AM CADWORX PIPING DESIGNER Lab [facility] [address] [phone] Lab, [facility] 04/07/2024 11:15 AM CADWORX PIPING DESIGNER Clinical Support [facility] [address] [phone] Nurse, [facility] 05/12/2024 11:00 AM CADWORX PIPING DESIGNER Lab [facility] [address] [phone] Lab, [facility] 05/12/2024 11:15 AM CADWORX PIPING DESIGNER Office Visit [facility] [address] [phone] Kev Moser MD [address] [place] [phone] 05/12/2024 11:30 AM CADWORX PIPING DESIGNER Clinical Support [facility] [address] [phone] Nurse, [facility] documented as of this encounter Visit Diagnoses Not on filedocumented in this encounter Additional Health Concerns Assessment Noted Time PHQ-9 Depression Total Score: 0 01/07/20 20 11:12 AM CDT documented as of this encounter Care Teams Oil Field Worker Relationship Specialty Start Date End Date Scott Oneill MD PCP - General Internal Medicine 04/29/17 Kev Prince DO Gastroenterology 04/29/17 12/09/22 Tavo Mishra MD [address] [address] Internal Medicine 04/29/17 Gilmer Barnard MD [address] [place] [address] Consulting Physician Internal Medicine 08/28/17 4 Kev Moser MD [address] [place] [phone] Consulting Physician Oncology 02/09/20 documented as of this encounter
--- OUTSIDE RECORDS SUMMARY | 2024-04-04 01:31 | XMS_ITS | Encounter Summary ---
Author Organization [facility] Address [address] [place] [address] Phone Care Team Providers Care Ship'S Captain Name Role Phone Scott Oneill MD Primary Care Provider [phone] Kev Prince DO Unavailable [phone] Tavo Mishra MD Unavailable [phone] Gilmer Barnard MD Unavailable [phone] Kev Moser MD Unavailable [phone] Reason for Visit * Reason Comments Follow-up Encounter Details Date Type Department Care Team (Latest Contact Info) Description 08/11/2020 11:30 AM CDT Office [facility] [address] [phone] Kev Moser MD [address] [place] [phone] Myelofibrosis (HCC) (Primary Dx); Other autoimmune hemolytic anemia (HCC); [...] Recorded Total Score - Questions 1-9 0 07/29 Sex and Gender Information Value Date Recorded Sex Assigned at Not on file Legal Sex Male 3:42 PM CONSTRUCTION ADMINISTRATOR Gender Identity Not on file Sexual Orientation Not on file COVID-19 Exposure Response Date Recorded In the last month, have you been in contact with someone who was confirmed or suspected to have Coronavirus / COVID-19? No / Unsure 08/11/2020 11:21 AM CDT documented as of this encounter Last Filed Vital Signs Vital Sign Reading Time Taken Comments Blood Pressure 140/72 08/11/2020 11:36 AM CDT Pulse 67 08/11/2020 11:36 AM CDT Temperature 36.3 ??C (97.4 ??F) 08/11/2020 11:36 AM C DT Respiratory Rate 18 08/11/2020 11:36 AM CDT Oxygen Saturation 97% 08/11/2020 11:36 AM CDT Inhaled Oxygen Concentration - - Weight 102.1 kg (225 lb) 08/11/2020 11:36 AM CDT Height 165.1 cm (5' 5 ) 08/11/2020 11:36 AM CDT Body Mass Index 37.44 08/11/2020 11:36 AM CDT documented in this encounter Progress Notes * Kev Moser MD - 08/11/2020 11:30 AM CDT Patient: Britton Nielsen Age: 65 y.o. : 1955 [facility] Date: 08/11/2020 Care Team: Current Providers PCP: Scott Onelil MD Care Team Provider: Kev Prince DO Care Team Provider: Tavo Mishra MD Care Team Provider: Gilmer Barnard MD Care Team Provider: Kev Moser MD Encounter Provider: Kev Moser MD Referring Provider: not found Consulting Physician: Kev Moser MD HISTORY OF PRESENT ILLNESS: Britton hull. He is doing stable. Unfortunately, he had significant vessel disease and had CABG. DIAGNOSIS: 1. Glomerulonephritis, sclerosing (renal biopsy 04/01/17). [...] Gastroduodenal artery embolization at [facility] 05/2017. 2. Cytoxan 100 mg daily. 3. Bone marrow biopsy 11/03/17 with normocellular marrow and maturating trilineage hematopoiesis with minimal reticulin fibrosis. Normal karyotype and NGS study. 4. EPO 40,000 units q.4 to 8 weeks (poor response, stopped on 01/2019). CURRENT TREATMENT: On Eliquis b.i.d. Using samples. TREATMENT GUIDELINES: Consistent with NCCN guidelines. PROGNOSIS: [...] Coronary artery disease with CABG 06/2020. PLAN: Followup on bloodwork. He just had it two days ago. We will scan it in. Hemoglobin of 9.4. He is status post CABG. No EPO with significant coronary artery disease. Creatinine and hemoglobin stable. He will followup in about three to four months. Iron levels are adequate with a ferritin of 300. TIME SPENT: REVIEW OF SYSTEMS: See HPI; [...] reviewed. Kev Moser MD, FACP/rmd Vitals: Vitals: 08/11/20 1136 BP: 140/72 BP Location: Right Arm BP Position: Sitting BP Cuff Size: Regular Pulse: 67 Resp: 18 Temp: 97.4 ??F (36.3 ??C) TempSrc: Temporal SpO2: 97% Weight: 225 lb (102.1 kg) Height: 5' 5 (1.651 m) Body surface area is 2.16 meters squared. Body mass index is 37.44 kg/m??. Allergies: No Known Allergies PMH/SgH/FH/SH: Past medical, [...] Cigarettes Quit date: 05/23/2011 Years since quittin.2 ??? Smokeless tobacco: Never Used Vaping Use [...] Current Medications: Outpatient Encounter Medications as of 08/11/2020 Medication Sig Dispense Refill ??? apixaban (Eliquis) 5 MG Tablet Take 1 Tablet by mouth 2 times daily. Indications: Prevention ofUnwanted Clot in Veins 56 Tablet ??? aspirin EC 81 MG Tablet Delayed Response Take 81 mg by mouth. ??? atorvastatin (LIPITOR) 20 MG Tablet Take 20 mg by mouth daily. ??? Calcium Carb-Cholecalciferol (CALCIUM 600 + D PO) Take by mouth 2 times daily. ??? cyanocobalamin 1000 MCG Tablet Take 1 tablet by mouth daily 30 Tab 0 ??? ergocalciferol (VITAMIN D) 48233 UNIT Capsule Take 50,000 Units by mouth [...] mg by mouth 2 times daily. ??? mycophenolate (CELLCEPT) 500 MG Tablet ??? ondansetron (ZOFRAN) 4 MG Tablet ??? pantoprazole (PROTONIX) 40 MG Tablet Delayed Response Take 40 mg by mouth 2 times daily. ??? potassium chloride SA (KLORCON M) 20 MEQ Tablet Controlled Release Take 20 mEq by mouth 2 timesdaily. ??? tadalafil (CIALIS) 20 MG Tablet TAKE 1 TABLET BY MOUTH ONCE DAILY NEEDED ??? traMADol (ULTRAM) 50 MG Tablet 0 No facility-administered encounter medications on file as of 08/11/2020. Labs: No visits with results within 7 Day(s) from this visit. Latest known visit with results is: Lab Requisition on 04/06/2020 Component Date Value Ref Range Status ??? IDPH REDITUS SARS-COV-2 RNA 04/06/2020 NOT DETECTED Final documented in this encounter Plan of Treatment Upcoming Encounters Date Type Department Care Team (Late st Contact Info) Description 04/07/2024 11:10 AM CONSTRUCTION ADMINISTRATOR Lab [facility] [address] [phone] Lab, [facility] 04/07/2024 11:15 AM CONSTRUCTION ADMINISTRATOR Clinical Support [facility] [address] [phone] Nurse, [facility] 05/12/2024 11:00 AM CONSTRUCTION ADMINISTRATOR Lab [facility] [address] [phone] Lab, [facility] 05/12/2024 11:15 AM CONSTRUCTION ADMINISTRATOR Office Visit [facility] [address] [phone] Kev Moser MD [address] [place] [phone] 05/12/2024 11:30 AM CONSTRUCTION ADMINISTRATOR Clinical Support [facility] [address] [phone] Nurse, [facility] documented as of this encounter Results * (ABNORMAL) IRON W/ IRON BINDING CAPACITY [place] (11/24/2020 11:26 AM CDT) IRON 58 50 - 212 ug/dL [facility] UIBC 200 155 - 355 ug/dL [facility] TIBC 258(L) 261 - 478 ug/dl [facility] % Saturation 22 20 - 50 % [facility] 11/24/2020 11:2 6 AM CDT [facility] - 11/24/2020 12:44 PM CDT Release to patient->Immediate us Kev Moser MD LAB SEND OUTS Final Resul t Performing Organization Address [facility]/ZIP Co de Phone Number [facility] [address] [address], [place] [phone] * (ABNORMAL) RETICULOCYTE COUNT (RETIC) (11/24/2020 11:26 AM CDT) Reticulocyte count 2.09(H) 0.51 - 1.81 % [facility] RET-He 29.60 28.20 - 36.60 pg [facility] Comment: RET-He is a direct assessment of incorporation of iron into erythrocyte hemoglobin. It provides an indirect measure of the iron available for new erythropoiesis over past 2-4 days. Blood 11/24/2020 11:2 6 AM CDT [facility] - 11/24/2020 12:07 PM CDT Release to patient->Immediate us Kev Moser MD HEMATOLOGY ORDERABLES Final Result Performing Organization Address [facility] Co de Phone Number [facility] [address] [place] [address], [place] [phone] * FERRITIN (11/24/2020 11:26 AM CDT) Ferritin 261 24 - 336 ng/mL [facility] Blood 11/24/2020 11:2 6 AM CDT [facility] 11/27/2020 2:12 PM CDT Release to patient->Immediate us Kev Moser MD CHEMISTRY ORDERABLES Final Result Performing Organization Address City/[facility] Co de Phone Number [facility] [place] [address] [place] [address], * FOLIC ACID (FOLATE) (11/24/2020 11:26 AM CDT) Folate 16.77 >=5.90 ng/mL [facility] Blood 11/24/2020 11:2 6 AM CDT Narrative [facility] - 11/27/2020 2:12 PM CDT IS THE PATIENT REQUIRED TO BE FASTING FOR 12 HOURS?->No Release to patient->Immediate us Kev Moser MD CHEMISTRY ORDERABLES Final Result [facility] [address] [place] [address], * VITAMIN B12 (11/24/2020 11:26 AM CDT) Vitamin B12 235 180 - 914 pg/mL [facility] Blood 11/24/2020 11:2 6 AM CDT Narrative [facility] - 11/27/2020 2:12 PM CDT Release to patient->Immediate us Kev Moser MD CHEMISTRY ORDERABLES Final Result [facility] [address] [place] [place] [address], * (ABNORMAL) CMP (COMPREHENSIVE METABOLIC PANEL) (11/24/2020 11:26 AM CDT) Glucose 84 70 - 105 mg/dL [facility] Blood Urea Nitrogen 34(H) 7 - 25 mg/dL [facility] Creatinine 2.1(H) 0.7 - 1.3 mg/dL [facility] Sodium 139 136 - 145 mEq/L [facility] Potassium 4.4 3.5 - 5.1 mEq/L [facility] Chloride 107 98 - 107 mEq/L [facility] Bicarbonate 24 21 - 31 mEq/L [facility] Total Bilirubin 0.8 0.3 - 1.0 mg/dL [facility] Alk. Phosphatase 111(H) 34 - 104 U/L [facility] Aspartate Aminotransferase 15 13 - 39 U/L [facility] Alanine Aminotransferase 18 7 - 52 U/L [facility] Total Protein 6.3(L) 6.4 - 8.9 g/dL [facility] Albumin 4.2 3.5 - 5.7 g/dL [facility] Calcium 8.7 8.6 - 10.3 mg/dL [facility] Anion Gap 12.4 7.0 - 15.0 mEq/L [facility] Globulin 2.1 2.0 - 3.5 g/dL [facility] EGFR (Non ) 31.7(L) >60.0 ml/min [facility] EGFR () 38.3(L) >60.0 ml/min [facility] Blood 11/24/2020 11:2 6 AM CDT Narrative [facility] - 11/24/2020 12:45 PM CDT IS THE PATIENT REQUIRED TO BE FASTING FOR 8 HOURS?->No Release to patient->Immediate us Kev Moser MD CHEMISTRY ORDERABLES Final Result [facility] [address] [place] [address], * (ABNORMAL) COMPLETE BLOOD COUNT (CBC) WITH DIFF (11/24/2020 11:26 AM CDT) WBC 5.4 4.0 - 10.0 10*3/uL [facility] HGB 10.0(L) 13.7 - 17.5 g/dL [facility] HCT 32.2(L) 40.1 - 51.0 % [facility] PLT 150(L) 163 - 369 10*3/uL [facility] MPV 9.9 9.4 - 12.4 fL [facility] RBC 3.57(L) 4.63 - 6.08 10*6/uL [facility] MCV 90 79 - 95 fL [facility] MCH 28.0 25.6 - 32.2 pg [facility] MCHC 31.1(L) 32.2 - 36.5 g/dL [facility] RDW 16.4(H) 11.6 - 14.4 % [facility] Absolute Neutrophil Count 4,382 cells/uL [facility] Absolute Seg Count 4,382 1,440 - 6,600 cells/uL [facility] Absolute Lymph Count 487(L) 760 - 4,000 cells/uL [facility] Absolute Crowley Count 379 160 - 1,200 cells/uL [facility] Absolute Eos Count 108 0 - 300 cells/uL [facility] Absolute Baso Count 54 0 - 100 cells/uL [facility] Segmented Neutrophils 81(H) 36 - 66 % [facility] Lymphocytes 9(L) 19 - 40 % [facility] Monocytes 7 4 - 12 % [facility] Eosinophils 2 0 - 3 % [facility] Basophils 1 0 - 1 % [facility] WBC Estimate Normal [facility] Platelet Estimate Low [facility] RBC Morphology Abnormal [facility] Anisocytosis 1+ [facility] Blood 11/24/2020 11:2 6 AM CDT Narrative [facility] - 11/24/2020 1:22 PM CDT Release to patient->Immediate us Kev Moser MD HEMATOLOGY ORDERABLES Final Result [facility] [address] [place] [address], documented in this encounter Visit Diagnoses Diagnosis Myelofibrosis (HCC)- Primary Myelofibrosis Other autoimmune hemolytic anemia (HCC) Stage 3a [...] Noted Time PHQ-9 Depression Total Score: 0 08/12/19 21 11:41 AM CDT documented as of this encounter Care Teams Ship'S Captain Relationship Specialty Start Date End Date Scott Oneill MD PCP - General Internal Medicine 04/29/17 Kev Prince DO Gastroenterology 04/29/17 12/09/22 Tavo Mishra MD [address] [place] [address] Internal Medicine 04/29/17 Gilmer Barnard MD [address] [place] [address] Consulting Physician Internal Medicine 08/28/17 4 Kev Moser MD [address] [place] [phone] Consulting Physician Oncology 02/09/20 documented as of this encounter
--- OUTSIDE RECORDS SUMMARY | 2024-04-04 01:31 | XMS_ITS | Encounter Summary ---
Author Organization [employer] Care Team Providers Care Art Class Model Name Role Phone Scott Oneill MD Primary Care Provider [phone] Kev Prince DO Unavailable [phone] Tavo Mishra MD Unavailable [phone] Gilmer Barnard MD Unavailable [phone] Encounter Details Date Type Department Care Team (Latest Contact Info) Description 01/07/2020 Travel Social History Tobacco Use Types Packs/Day Years Used Date Smoking Tobacco: Former Cigarettes 1 30 0 05/23/1981 - 05/23/2011 Smokeless Tobacco: Never Alcohol Use Standard Drinks/Week Comments No 0 (1 standard drink = 0.6 oz pur e alcohol) PHQ-2 Answer Date Recorded Total Score - Questions 1-9 0 11/2019 Sex and Gender Information Value Date Recorded Sex Assigned at Not on file Legal Sex Male 3:42 PM ROLLER SKATER Gender Identity Not on file Sexual Orientation Not on file COVID-19 Exposure Response Date Recorded In the last month, have you been in contact with someone who was confirmed or suspected to have Coronavirus / COVID-19? No / Unsure 01/07/2020 11:10 AM CDT documented as of this encounter Plan of Treatment Upcoming Encounters Date Type Department Care Team (Late st Contact Info) Description 04/07/2024 11:10 AM ROLLER SKATER Lab [facility] [address] [phone] Lab, [facility] 04/07/2024 11:15 AM ROLLER SKATER Clinical Support [facility] [address] [phone] Nurse, [facility] 05/12/2024 11:00 AM ROLLER SKATER Lab [facility] [address] [phone] Lab, [facility] 05/12/2024 11:15 AM ROLLER SKATER Office Visit [facility] [address] [phone] Kev Moser MD [address] [place] [phone] 05/12/2024 11:30 AM ROLLER SKATER Clinical Support [facility] [address] [phone] Nurse, [facility] documented as of this encounter Visit Diagnoses Not on filedocumented in this encounter Additional Health Concerns Assessment Noted Time PHQ-9 Depression Total Score: 0 01/07/20 20 11:12 AM CDT documented as of this encounter Care Teams Art Class Model Relationship Specialty Start Date End Date Scott Oneill MD PCP - General Internal Medicine 04/29/17 Kev Prince DO Gastroenterology 04/29/17 12/09/22 Tavo Mishra MD [address] [place] [address] [phone] Internal Medicine 04/29/17 Gilmer Barnard MD [address] [place] [phone] Consulting Physician Internal Medicine 08/28/17 4 documented as of this encounter
--- OUTSIDE RECORDS SUMMARY | 2024-04-04 01:31 | XMS_ITS | Encounter Summary ---
Author Organization [facility] Address [address] [place] [address] Phone Care Team Providers Care Director On Air Name Role Phone Scott Oneill MD Primary Care Provider Kev Prince DO Unavailable [phone] Tavo Mishra MD Unavailable [phone] Gilmer Barnard MD Unavailable [phone] Kev Moser MD Unavailable [phone] Encounter Details Date Type Department Care Team (Late st Contact Info) Description 05/12/2020 Telephone [facility] [place] [address] [place] [phone] Kev Moser MD [address] [place] [phone] Social History Tobacco Use Types Packs/Day Years Used Date Smoking Tobacco: Former Cigarettes 1 30 0 05/23/1981 - 05/23/2011 Smokeless Tobacco: Never Alcohol Use Standard Drinks/Week Comments No 0 (1 standard drink = 0.6 oz pur e alcohol) PHQ-2 Answer Date Recorded Total Score - Questions 1-9 0 05/01 Sex and Gender Information Value Date Recorded Sex Assigned at Not on file Legal Sex Male 3:42 PM PLATE ROLLER Gender Identity Not on file Sexual Orientation Not on file documented as of this encounter Miscellaneous Notes * Telephone Encounter - Zahdia Montes RN - 05/12/2020 10:08 AM CST Request signed (ok to hold eliqis for 2 days) release faxed to [phone] E ROLLER * Telephone Encounter - Zahida Montes RN - 05/12/2020 9:[address] Bahena from [place] requesting a release signed for pt to stop Eliquis 2 days prior to EGD. Pt may restart Eliquis the evening of procedure. Release form placed in you box. E ROLLER documented in this encounter Plan of Treatment Upcoming Encounters Date Type Department Care Team (Late st Contact Info) Description 04/07/2024 11:10 AM PLATE ROLLER Lab [facility] [address] [phone] Lab, [facility] 04/07/2024 11:15 AM PLATE ROLLER Clinical Support [facility] [address] [phone] Nurse, [facility] 05/12/2024 11:00 AM PLATE ROLLER Lab [facility] [address] [phone] Lab, [facility] 05/12/2024 11:15 AM PLATE ROLLER Office Visit [facility] [address] [phone] Kev Moser MD [address] [place] [phone] 05/12/2024 11:30 AM PLATE ROLLER Clinical Support [facility] [address] [phone] Nurse, [facility] documented as of this encounter Visit Diagnoses Not on filedocumented in this encounter Additional Health Concerns Assessment Noted Time PHQ-9 Depression Total Score: 0 05/12/19 21 10:54 AM PLATE ROLLER documented as of this encounter Care Teams Director On Air Relationship Specialty Start Date End Date Scott Oneill MD PCP - General Internal Medicine 04/29/17 Kev Prince DO Gastroenterology 04/29/17 12/09/22 Tavo Mishra MD [address] [place] [address] Internal Medicine 04/29/17 Gilmer Barnard MD [address] [place] [address] Consulting Physician Internal Medicine 08/28/17 4 Kev Moser MD [address] [place] [phone] Consulting Physician Oncology 02/09/20 documented as of this encounter
--- OUTSIDE RECORDS SUMMARY | 2024-04-04 01:31 | XMS_ITS | Encounter Summary ---
Author Organization [employer] Care Team Providers Care Ssas Developer Name Role Phone Scott Oneill MD Primary Care Provider Kev Prince DO Unavailable [phone] Tavo Mishra MD Unavailable [phone] Gilmer Barnard MD Unavailable [phone] Kev Moser MD Unavailable [phone] Encounter Details Date Type Department Care Team (Latest Contact Info) Description 11/09/2020 Travel Social History Tobacco Use Types Packs/Day [...] file Legal Sex Male 3:42 PM HOUSEKEEPING ASSOCIATE Gender Identity Not on file Sexual Orientation Not on file COVID-19 Exposure Response Date Recorded In the last month, have you been in contact with someone who was confirmed or suspected to have Coronavirus / COVID-19? No / Unsure 11/09/2020 10:59 AM CDT documented as of this encounter Plan of Treatment Upcoming Encounters Date Type Department Care Team (Late st Contact Info) Description 04/07/2024 11:10 AM HOUSEKEEPING ASSOCIATE Lab [facility] [address] [phone] Lab, [facility] 04/07/2024 11:15 AM HOUSEKEEPING ASSOCIATE Clinical Support [facility] [address] [phone] Nurse, [facility] 05/12/2024 11:00 AM HOUSEKEEPING ASSOCIATE Lab [facility] [address] [phone] Lab, [facility] 05/12/2024 11:15 AM HOUSEKEEPING ASSOCIATE Office Visit [facility] [address] [phone] Kev Moser MD [address] [place] [phone] 05/12/2024 11:30 AM HOUSEKEEPING ASSOCIATE Clinical Support [facility] [address] [phone] Nurse, [facility] documented as of this encounter Visit Diagnoses Not on filedocumented in this encounter Additional Health Concerns Assessment Noted Time PHQ-9 Depression Total Score: 0 08/12/19 11:41 AM CDT documented as of this encounter Care Teams Ssas Developer Relationship Specialty Start Date End Date Scott Oneill MD PCP - General Internal Medicine 04/29/17 Kev Prince DO Gastroenterology 04/29/17 12/09/22 Tavo Mishra MD [address] [place] [address] [phone] Internal Medicine 04/29/17 Gilmer Barnard MD [address] [phone] Consulting Physician Internal Medicine 08/28/17 4 Kev Moser MD [address] [place] [phone] Consulting Physician Oncology 02/09/20 documented as of this encounter
--- OUTSIDE RECORDS SUMMARY | 2024-04-04 01:31 | XMS_ITS | Encounter Summary ---
Author Organization [facility] Address [address] [place] [address] Phone Care Team Providers Care School Bus Attendant Name Role Phone Scott Oneill MD Primary Care Provider [phone] Kev Prince DO Unavailable [phone] Tavo Mishra MD Unavailable [phone] Gilmer Barnard MD Unavailable [phone] Kev oMser MD Unavailable [phone] Reason for Visit * Reason Comments Other Eliquis 5mg Sample D ispense Encounter Details Date Type Department Care Team (Latest Contact Info) Description 11/09/2020 10:00 AM CDT Clinical Support [facility] [address] [phone] Nurse, Gricelda Lopes [place] Myelofibrosis (HCC) (Primary Dx); Other autoimmune hemolytic [...] on file Legal Sex Male 3:42 PM CASUALTY UNDERWRITER Gender Identity Not on file Sexual Orientation Not on file documented as of this encounter Progress Notes * Fritz Pnea RN - 11/09/2020 10:00 AM CDT Eliquis 5mg Sample Dispense Take one tablet by mouth twice daily. 4 boxes given LOT#: [id number] EXP: 10/2022 documented in this encounter Plan of Treatment Upcoming Encounters Date Type Department Care Team (Late st Contact Info) Description 04/07/2024 11:10 AM CASUALTY UNDERWRITER Lab [facility] [address] [phone] Lab, [facility] 04/07/2024 11:15 AM CASUALTY UNDERWRITER Clinical Support [facility] [address] [phone] Nurse, [facility] 05/12/2024 11:00 AM CASUALTY UNDERWRITER Lab [facility] [address] [phone] Lab, [facility] 05/12/2024 11:15 AM CASUALTY UNDERWRITER Office Visit [facility] [address] [phone] Kev Moser MD [address] [place] [phone] 05/12/2024 11:30 AM CASUALTY UNDERWRITER Clinical Support [facility] [address] [phone] Nurse, [facility] documented as of this encounter Visit Diagnoses Diagnosis Myelofibrosis (HCC)- Primary Myelofibrosis Other autoimmune hemolytic anemia (HCC) documented in this encounter Additional Health Concerns Assessment Noted Time PHQ-9 Depression Total Score: 0 08/12/19 11:41 AM CDT documented as of this encounter Care Teams School Bus Attendant Relationship Specialty Start Date End Date Scott Oneill MD PCP - General Internal Medicine 04/29/17 Kev Prince DO Gastroenterology 04/29/17 12/09/22 Tavo Mishra MD [address] [place] [address] Internal Medicine 04/29/17 Gilmer Barnard MD [address] [place] [address] [phone] Consulting Physician Internal Medicine 08/28/17 4 Kev Moser MD [address] [place] [phone] Consulting Physician Oncology 02/09/20 documented as of this encounter
--- OUTSIDE RECORDS SUMMARY | 2024-04-04 01:31 | XMS_ITS | Encounter Summary ---
Author Organization [facility] Care Team Providers Care Master Ship Name Role Phone Scott Oneill MD Primary Care Provider Kev Prince DO Unavailable [phone] Tavo Mishra MD Unavailable [phone] Gilmer Barnard MD Unavailable [phone] Kev Moser MD Unavailable [phone] Encounter Details Date Type Department Care Team (Latest Contact Info) Description 07/10/2020 Travel Social History Tobacco Use Types Packs/Day [...] on file Legal Sex Male 3:42 PM POTATO CHIP SACKING MACHINE OPERATOR Gender Identity Not on file Sexual Orientation Not on file COVID-19 Exposure Response Date Recorded In the last month, have you been in contact with someone who was confirmed or suspected to have Coronavirus / COVID-19? No / Unsure 07/10/2020 12:37 PM CDT documented as of this encounter Plan of Treatment Upcoming Encounters Date Type Department Care Team (Late st Contact Info) Description 04/07/2024 11:10 AM POTATO CHIP SACKING MACHINE OPERATOR Lab [facility] [address] [phone] Lab, [facility] 04/07/2024 11:15 AM POTATO CHIP SACKING MACHINE OPERATOR Clinical Support [facility] [address] [phone] Nurse, [facility] 05/12/2024 11:00 AM POTATO CHIP SACKING MACHINE OPERATOR Lab [facility] [address] [phone] Lab, [facility] 05/12/2024 11:15 AM POTATO CHIP SACKING MACHINE OPERATOR Office Visit [facility] [address] [phone] Kev Moser MD [address] [place] [phone] 05/12/2024 11:30 AM POTATO CHIP SACKING MACHINE OPERATOR Clinical Support [facility] [address] [phone] Nurse, [facility] documented as of this encounter Visit Diagnoses Not on filedocumented in this encounter Additional Health Concerns Assessment Noted Time PHQ-9 Depression Total Score: 0 05/12/19 21 10:54 AM POTATO CHIP SACKING MACHINE OPERATOR documented as of this encounter Care Teams Master Ship Relationship Specialty Start Date End Date Scott Oneill MD PCP - General Internal Medicine 04/29/17 Kev Prince DO Gastroenterology 04/29/17 12/09/22 Tavo Mishra MD [address] [place] [address] [phone] Internal Medicine 04/29/17 Gilmer Barnard MD [address] [place] [address] [phone] Consulting Physician Internal Medicine 08/28/17 4 Kev Moser MD [address] [place] [phone] Consulting Physician Oncology 02/09/20 documented as of this encounter
--- OUTSIDE RECORDS SUMMARY | 2024-04-04 01:31 | XMS_ITS | Encounter Summary ---
Author Organization [facility] Care Team Providers Care Drupal Web Developer Name Role Phone Scott Oneill MD Primary Care Provider Kev Prince DO Unavailable [phone] Tavo Mishra MD Unavailable [phone] Gilmer Barnard MD Unavailable [phone] Kev Moser MD Unavailable [phone] Encounter Details Date Type Department Care Team (Latest Contact Info) Description 10/09/2020 Travel Social History Tobacco Use Types Packs/Day [...] on file Legal Sex Male 3:42 PM PET GROOMER Gender Identity Not on file Sexual Orientation Not on file COVID-19 Exposure Response Date Recorded In the last month, have you been in contact with someone who was confirmed or suspected to have Coronavirus / COVID-19? No / Unsure 10/09/2020 10:09 AM CDT documented as of this encounter Plan of Treatment Upcoming Encounters Date Type Department Care Team (Late st Contact Info) Description 04/07/2024 11:10 AM PET GROOMER Lab [facility] [address] [phone] Lab, [facility] 04/07/2024 11:15 AM PET GROOMER Clinical Support [facility] [address] [phone] Nurse, [facility] 05/12/2024 11:00 AM PET GROOMER Lab [facility] [address] [phone] Lab, [facility] 05/12/2024 11:15 AM PET GROOMER Office Visit [facility] [address] [phone] Kev Moser MD [address] [place] [phone] 05/12/2024 11:30 AM PET GROOMER Clinical Support [facility] [address] [phone] Nurse, [facility] documented as of this encounter Visit Diagnoses Not on filedocumented in this encounter Additional Health Concerns Assessment Noted Time PHQ-9 Depression Total Score: 0 08/12/19 11:41 AM CDT documented as of this encounter Care Teams Drupal Web Developer Relationship Specialty Start Date End Date Scott Oneill MD PCP - General Internal Medicine 04/29/17 Kev Prince DO Gastroenterology 04/29/17 12/09/22 Tavo Mishra MD [address] [place] [phone] Internal Medicine 04/29/17 Gilmer Barnard MD [address] [phone] Consulting Physician Internal Medicine 08/28/17 4 Kev Moser MD [address] [place] [address] Consulting Physician Oncology 02/09/20 documented as of this encounter
--- OUTSIDE RECORDS SUMMARY | 2024-04-04 01:31 | XMS_ITS | Encounter Summary ---
Author Organization [facility] Address [address] [place] [address] Phone Care Team Providers Care Head Mechanic Name Role Phone Scott Oneill MD Primary Care Provider Kev Prince DO Unavailable [phone] Tavo Mishra MD Unavailable [phone] Gilmer Barnard MD Unavailable [phone] Kev Moser MD Unavailable [phone] Encounter Details Date Type Department Care Team (Late st Contact Info) Description 11/24/2020 11:15 AM CDT Lab [facility] [address] [phone] Lab, [facility] Other autoimmune hemolytic anemia (HCC); Stage 3a [...] on file Legal Sex Male 3:42 PM WALL MAN Gender Identity Not on file Sexual Orientation [...] st Contact Info) Description 04/07/2024 11:10 AM WALL MAN Lab [facility] [address] [phone] Lab, [facility] 04/07/2024 11:15 AM WALL MAN Clinical Support [facility] [address] [phone] Nurse, [facility] 05/12/2024 11:00 AM WALL MAN Lab [facility] [address] [phone] Lab, [facility] 05/12/2024 11:15 AM WALL MAN Office Visit [facility] [address] [phone] Kev Moser MD [address] [place] [phone] 05/12/2024 11:30 AM WALL MAN Clinical Support [facility] [address] [phone] Nurse, [facility] documented as of this encounter Procedures Procedure Name Priority Date/Time Associated Diagnosis Comments IRON W/ IRON BINDING CAPACITY [place] Routine 11/24/2020 11:26 AM CDT Other autoimmune hemolytic anemia (HCC) Stage 3a chronic kidney disease (HCC) Iron deficiency anemia due to sideropenic dysphagia Iron deficiency anemia, unspecified iron deficiency anemia type VITAMIN B12 Routine 11/24/2020 11:26 AM CDT Other autoimmune hemolytic anemia (HCC) Stage 3a chronic kidney disease (HCC) Iron deficiency anemia due to sideropenic dysphagia Iron deficiency anemia, unspecified iron deficiency anemia type RETICULOCYTE COUNT (RETIC) Routine 11/24/2020 11:26 AM CDT Other autoimmune hemolytic anemia (HCC) Stage 3a chronic kidney disease (HCC) Iron deficiency anemia due to sideropenic dysphagia Iron deficiency anemia, unspecified iron deficiency anemia type FOLIC ACID (FOLATE) Routine 11/24/2020 1 1:26 AM CDT Other autoimmune hemolytic anemia (HCC) Stage 3a chronic kidney disease (HCC) Iron deficiency anemia due to sideropenic dysphagia Iron deficiency anemia, unspecified iron deficiency anemia type FERRITIN Routine 11/24/2020 11:26 AM CDT Other autoimmune hemolytic anemia (HCC) Stage 3a chronic kidney disease (HCC) Iron deficiency anemia due to sideropenic dysphagia Iron deficiency anemia, unspecified iron deficiency anemia type CMP (COMPREHENSIVE METABOLIC PANEL) Routine 11/24/2020 11:26 AM CDT Other autoimmune hemolytic anemia (HCC) Stage 3a chronic kidney disease (HCC) Iron deficiency anemia due to sideropenic dysphagia Iron deficiency anemia, unspecified iron deficiency anemia type COMPLETE BLOOD COUNT (CBC) WITH DIFF Routine 11/24/2020 11:26 AM CDT Other autoimmune hemolytic anemia (HCC) Stage 3a chronic kidney disease (HCC) Iron deficiency anemia due to sideropenic dysphagia Iron deficiency anemia, unspecified iron deficiency anemia type documented in this encounter Results * (ABNORMAL) COMPLETE BLOOD COUNT (CBC) WITH DIFF (11/24/2020 11:26 AM CDT) WBC 5.4 4.0 - 10.0 10*3/uL [facility] HGB 10.0(L) 13.7 - 17.5 g/dL [facility] HCT 32.2(L) 40.1 - 51.0 % [facility] PLT 150(L) 163 - 369 10*3/uL [facility] MPV 9.9 9.4 - 12.4 fL [facility] RBC 3.57(L) 4.63 - 6.08 10*6/uL [facility] MCV 90 79 - 95 fL [facility] MCH 28.0 25.6 - 32.2 pg [facility] MCHC 31.1(L) 32.2 - 36.5 g/dL [facility] RDW 16.4(H) 11.6 - 14.4 % [facility] Absolute Neutrophil Count 4,382 cells/uL [facility] Absolute Seg Count 4,382 1,440 - 6,600 cells/uL [facility] Absolute Lymph Count 487(L) 760 - 4,000 cells/uL [facility] Absolute [place] Count 379 160 - 1,200 cells/uL [facility] Absolute Eos Count 108 0 - 300 cells/uL [facility] Absolute Baso Count 54 0 - 100 cells/uL [facility] Segmented Neutrophils 81(H) 36 - 66 % [facility] Lymphocytes 9(L) 19 - 40 % [facility] Monocytes 7 4 - 12 % [facility] Eosinophils 2 0 - 3 % [facility] Basophils 1 0 - 1 % [facility] WBC Estimate Normal [facility] Platelet Estimate Low [facility] RBC Morphology Abnormal [facility] Anisocytosis 1+ [facility] Blood 11/24/2020 11:2 6 AM CDT Narrative [facility] - 11/24/2020 1:22 PM CDT Release to patient->Immediate us Kev Moser MD HEMATOLOGY ORDERABLES Final Result [facility] [address] [place] [address], * (ABNORMAL) CMP (COMPREHENSIVE METABOLIC PANEL) (11/24/2020 11:26 AM CDT) Glucose 84 70 - 105 mg/dL [facility] Blood Urea Nitrogen 34(H) 7 - 25 mg/dL [facility] Creatinine 2.1(H) 0.7 - 1.3 mg/dL [facility] Sodium 139 136 - 145 mEq/L [facility] Potassium 4.4 3.5 - 5.1 mEq/L [facility] Chloride 107 98 - 107 mEq/L [facility] Bicarbonate 24 21 - 31 mEq/L [facility] Total Bilirubin 0.8 0.3 - 1.0 mg/dL [facility] Alk. Phosphatase 111(H) 34 - 104 U/L [facility] Aspartate Aminotransferase 15 13 - 39 U/L [facility] Alanine Aminotransferase 18 7 - 52 U/L [facility] Total Protein 6.3(L) 6.4 - 8.9 g/dL [facility] Albumin 4.2 3.5 - 5.7 g/dL [facility] Calcium 8.7 8.6 - 10.3 mg/dL [facility] Anion Gap 12.4 7.0 - 15.0 mEq/L [facility] Globulin 2.1 2.0 - 3.5 g/dL [facility] EGFR (Non ) 31.7(L) >60.0 ml/min [facility] EGFR () 38.3(L) >60.0 ml/min [facility] Blood 11/24/2020 11:2 6 AM CDT [facility] - 11/24/2020 12:45 PM CDT IS THE PATIENT REQUIRED TO BE FASTING FOR 8 HOURS?->No Release to patient->Immediate Kev Moser MD CHEMISTRY ORDERABLES Final Result Performing Organization Address [facility] Co de Phone Number [facility] [place] [address], * VITAMIN B12 (11/24/2020 11:26 AM CDT) Vitamin B12 235 180 - 914 pg/mL [facility] Blood 11/24/2020 11:2 6 AM CDT [facility] - 11/27/2020 2:12 PM CDT Release to patient->Immediate Kev Mosre MD CHEMISTRY ORDERABLES Final Result [facility] [address] [place] [address], * FOLIC ACID (FOLATE) (11/24/2020 11:26 AM CDT) Folate 16.77 >=5.90 ng/mL [facility] Blood 11/24/2020 11:2 6 AM CDT [facility] - 11/27/2020 2:12 PM CDT IS THE PATIENT REQUIRED TO BE FASTING FOR 12 HOURS?->No Release to patient->Immediate us Kev Moser MD CHEMISTRY ORDERABLES Final Result Performing Organization Address City/[facility]/ZIP Co de Phone Number [facility] [place] [address], [place] [phone] * FERRITIN (11/24/2020 11:26 AM CDT) Ferritin 261 24 - 336 ng/mL [facility] Blood 11/24/2020 11:2 6 AM CDT [facility] - 11/27/2020 2:12 PM CDT Release to patient->Immediate us Kev Moser MD CHEMISTRY ORDERABLES Final Result Performing Organization Address City/[facility]/ZIP Co de Phone Number [facility] [address] [place] [place] [address], [place] [phone] * (ABNORMAL) RETICULOCYTE COUNT (RETIC) (11/24/2020 11:26 AM CDT) Reticulocyte count 2.09(H) 0.51 - 1.81 % [facility] RET-He 29.60 28.20 - 36.60 pg [facility] Comment: RET-He is a direct assessment of incorporation of iron into erythrocyte hemoglobin. It provides an indirect measure of the iron available for new erythropoiesis over past 2-4 days. Blood 11/24/2020 11:2 6 AM CDT [facility] - 11/24/2020 12:07 PM CDT Release to patient->Immediate Kev Moser MD HEMATOLOGY ORDERABLES Final Result Performing Organization Address [facility] Co de Phone Number [facility] Cancer Care [address] [address], [place] [phone] * (ABNORMAL) IRON W/ IRON BINDING CAPACITY [place] (11/24/2020 11:26 AM CDT) IRON 58 50 - 212 ug/dL [facility] UIBC 200 155 - 355 ug/dL [facility] TIBC 258(L) 261 - 478 ug/dl [facility] % Saturation 22 20 - 50 % [facility] 11/24/2020 11:2 6 AM CDT [facility] - 11/24/2020 12:44 PM CDT Release to patient->Immediate Kev Moser MD LAB SEND OUTS Final Resul t Performing Organization Address [facility] Co de Phone Number [address] [address], [place] [phone] documented in this encounter Visit Diagnoses Diagnosis Other autoimmune hemolytic anemia (HCC) Stage 3a chronic kidney disease (HCC) Iron deficiency anemia due to sideropenic dysphagia Iron deficiency anemia, unspecified iron deficiency anemia type documented in this encounter Additional Health Concerns Assessment Noted Time PHQ-9 Depression Total Score: 0 11/25/19 21 11:34 AM CDT documented as of this encounter Care Teams Head Mechanic Relationship Specialty Start Date End Date Scott Oneill MD PCP - General Internal Medicine 04/29/17 Kev Prince DO Gastroenterology 04/29/17 12/09/22 Tavo Mishra MD [address] [place] [address] [phone] Internal Medicine 04/29/17 Gilmer Barnard MD [address] [place] [address] [phone] Consulting Physician Internal Medicine 08/28/17 4 Kev Moser MD [address] [place] [phone] Consulting Physician Oncology 02/09/20 documented as of this encounter
--- OUTSIDE RECORDS SUMMARY | 2024-04-04 01:31 | XMS_ITS | Encounter Summary ---
Author Organization [facility] Address [address] [place] [address] Phone Care Team Providers Care Records Management Technician Name Role Phone Scott Oneill MD Primary Care Provider [phone] Kev Prince DO Unavailable [phone] Tavo Mishra MD Unavailable [phone] Gilmer Barnard MD Unavailable [phone] Kev Moser MD Unavailable [phone] Reason for Visit * Reason Comments Other Eliquis 5mg Dispense Encounter Details Date Type Department Care Team (Latest Contact Info) Description 06/05/2020 10:15 AM CRTS Clinical Support [facility] [address] [phone] Nurse, [facility] Other autoimmune hemolytic anemia (HCC) Social [...] on file Legal Sex Male 3:42 PM CRTS Gender Identity Not on file Sexual Orientation Not on file COVID-19 Exposure Response Date Recorded In the last month, have you been in contact with someone who was confirmed or suspected to have Coronavirus / COVID-19? No / Unsure 06/05/2020 10:10 AM CRTS documented as of this encounter Progress Notes * Fritz Pena, RN - 06/05/2020 10:15 AM CST Eliquis 5mg Sample Dispense Take one tab PO BID. 4 boxes given (56 tablets) LOT: [id number] EXP: 05/2022 documented in this encounter Plan of Treatment Upcoming Encounters Date Type Department Care Team (Late st Contact Info) Description 04/07/2024 11:10 AM CRTS Lab [facility] [address] [address] Lab, [facility] 04/07/2024 11:15 AM CRTS Clinical Support [facility] [address] [phone] Nurse, [facility] 05/12/2024 11:00 AM CRTS Lab [facility] [address] [phone] Lab, [facility] 05/12/2024 11:15 AM CRTS Office Visit [facility] [address] [phone] Kev Moser MD [address] [place] [phone] 05/12/2024 11:30 AM CRTS Clinical Support [facility] [address] [phone] Nurse, [facility] documented as of this encounter Visit Diagnoses Diagnosis Other autoimmune hemolytic anemia (HCC) documented in this encounter Additional Health Concerns Assessment Noted Time PHQ-9 Depression Total Score: 0 05/12/19 21 10:54 AM CRTS documented as of this encounter Care Teams Records Management Technician Relationship Specialty Start Date End Date Scott Oneill MD PCP - General Internal Medicine 04/29/17 Kev Prince DO Gastroenterology 04/29/17 12/09/22 Tavo Mishra MD [address] [place] [address] Internal Medicine 04/29/17 Gilmer Barnard MD [address] [place] [address] Consulting Physician Internal Medicine 08/28/17 4 Kev Moser MD [address] [place] [phone] Consulting Physician Oncology 02/09/20 documented as of this encounter
--- OUTSIDE RECORDS SUMMARY | 2024-04-04 01:31 | XMS_ITS | Encounter Summary ---
Author Organization [facility] Address [address] [place] [address] Phone Care Team Providers Care Hardware Developer Name Role Phone Scott Oneill MD Primary Care Provider Kev Prince DO Unavailable [phone] Tavo Mishra MD Unavailable [phone] Gilmer Barnard MD Unavailable [phone] Reason for Visit * Reason Comments Other MEDICATION SAMPLE OF ELIQUIS DISPENSE Encounter Details Date Type Department Care Team (Latest Contact Info) Description 12/14/2019 11:30 AM CDT Clinical Support [facility] [address] [address] Nurse, [facility] Myelofibrosis (HCC) (Primary Dx) Social History Tobacco Use Types Packs/Day Years Used Date Smoking Tobacco: Former Cigarettes 1 30 0 05/23/1981 - 05/23/2011 Smokeless Tobacco: Never Alcohol Use Standard Drinks/Week Comments No 0 (1 standard drink = 0.6 oz pur e alcohol) PHQ-2 Answer Date Recorded PHQ-2 Score 0 07/05/2019 Sex and Gender Information Value Date Recorded Sex Assigned at Not on file Legal Sex Male 3:42 PM PIN SORTER AND BAGGER Gender Identity Not on file Sexual Orientation Not on file COVID-19 Exposure Response Date Recorded In the last month, have you been in contact with someone who was confirmed or suspected to have Coronavirus / COVID-19? No / Unsure 12/14/2019 11:15 AM CDT documented as of this encounter Progress Notes * Fritz Pena, RN - 12/14/2019 11:30 AM CDT MEDICATION DISPENSE SAMPLE OF ELIQUIS 5MG GAVE 4 BOXES =56 PILLS TAKE ONE TABLET BY MOUTH TWICE DAILY. LOT#: [id number] EXP: 06/2021 documented in this encounter Plan of Treatment Upcoming Encounters Date Type Department Care Team (Late st Contact Info) Description 04/07/2024 11:10 AM PIN SORTER AND BAGGER Lab [facility] [address] [phone] Lab, [facility] 04/07/2024 11:15 AM PIN SORTER AND BAGGER Clinical Support [facility] [address] [phone] Nurse, [facility] 05/12/2024 11:00 AM PIN SORTER AND BAGGER Lab [facility] [address] [phone] Lab, [facility] 05/12/2024 11:15 AM PIN SORTER AND BAGGER Office Visit [facility] [address] [phone] Kev Moser MD [address] [place] [phone] 05/12/2024 11:30 AM PIN SORTER AND BAGGER Clinical Support [facility] [address] [phone] Nurse, [facility] documented as of this encounter Visit Diagnoses Diagnosis Myelofibrosis (HCC)- Primary Myelofibrosis documented in this encounter Additional Health Concerns Assessment Noted Time PHQ-9 Depression Total Score: 0 10/04/19 20 2:45 PM CDT documented as of this encounter Care Teams Hardware Developer Relationship Specialty Start Date End Date Scott Oneill MD PCP - General Internal Medicine 04/29/17 Kev Prince DO Gastroenterology 04/29/17 12/09/22 Tavo Mishra MD [address] [place] [address] Internal Medicine 04/29/17 Gilmer Barnard MD [address] [place] [address] Consulting Physician Internal Medicine 08/28/17 4 documented as of this encounter
--- OUTSIDE RECORDS SUMMARY | 2024-04-04 01:31 | XMS_ITS | Encounter Summary ---
Author Organization [facility] Address [address] [place] [address] Phone Care Team Providers Care Laser Operator Name Role Phone Scott Oneill MD Primary Care Provider [phone] Kev Prince DO Unavailable [phone] Tavo Mishra MD Unavailable [phone] Gilmer Barnard MD Unavailable [phone] Kev Moser MD Unavailable [phone] Encounter Details Date Type Department Care Team (Late st Contact Info) Description 05/08/2020 Telephone [facility] [address] [place] [address] Kev Moser MD [address] [place] [phone] Social History Tobacco Use Types Packs/Day Years Used Date Smoking Tobacco: Former Cigarettes 1 30 0 05/23/1981 - 05/23/2011 Smokeless Tobacco: Never Alcohol Use Standard Drinks/Week Comments No 0 (1 standard drink = 0.6 oz pur e alcohol) PHQ-2 Answer Date Recorded Total Score - Questions 1-9 0 10/11/2019 Sex and Gender Information Value Date Recorded Sex Assigned at Not on file Legal Sex Male 3:42 PM NURSE OFFICE Gender Identity Not on file Sexual Orientation Not on file documented as of this encounter Miscellaneous Notes * Telephone Encounter - Fritz Pena RN - 05/08/2020 8:27 AM CST Called patient informed him that his Eliquis 5mg samples will be ready for pickup today. He verbalized understanding and will be in today to get them. E OFFICE * Telephone Encounter - Fe Lemos RN - 05/08/2020 8:09 AM NURSE OFFICE Pt is needing samples of Xarelto, today. Please call pt to confirm pick-up. E OFFICE documented in this encounter Plan of Treatment Upcoming Encounters Date Type Department Care Team (Late st Contact Info) Description 04/07/2024 11:10 AM NURSE OFFICE Lab [facility] [address] [phone] Lab, [facility] 04/07/2024 11:15 AM NURSE OFFICE Clinical Support [facility] [address] [phone] Nurse, [facility] 05/12/2024 11:00 AM NURSE OFFICE Lab [facility] [address] [phone] Lab, [facility] 05/12/2024 11:15 AM NURSE OFFICE Office Visit [facility] [address] [phone] Kev Moser MD [address] [place] [phone] 05/12/2024 11:30 AM NURSE OFFICE Clinical Support [facility] [address] [phone] Nurse, [facility] documented as of this encounter Visit Diagnoses Not on filedocumented in this encounter Additional Health Concerns Assessment Noted Time PHQ-9 Depression Total Score: 0 10/09/20 20 11:12 AM CDT documented as of this encounter Care Teams Laser Operator Relationship Specialty Start Date End Date Scott Oneill MD PCP - General Internal Medicine 04/29/17 Kev Prince DO Gastroenterology 04/29/17 12/09/22 Tavo Mishra MD [address] [place] [address] Internal Medicine 04/29/17 Gilmer Barnard MD [address] [place] [address] Consulting Physician Internal Medicine 08/28/17 4 Kev Moser MD [address] [place] [phone] Consulting Physician Oncology 02/09/20 documented as of this encounter
--- OUTSIDE RECORDS SUMMARY | 2024-04-04 01:31 | XMS_ITS | Encounter Summary ---
Author Organization [facility] Address [address] [place] [address] Phone Care Team Providers Care Substitute Teacher Name Role Phone Scott Oneill MD Primary Care Provider [phone] Kev Prince DO Unavailable [phone] Tavo Mishra MD Unavailable [phone] Gilmer Barnard MD Unavailable [phone] Encounter Details Date Type Department Care Team (Late st Contact Info) Description 10/04/2019 3:20 PM CDT Lab [facility] [address] [phone] Lab, [facility] Other autoimmune hemolytic anemias (HCC); Myelofibrosis (HCC); Iron deficiency anemia due to sideropenic [...] file Legal Sex Male 3:42 PM PROJECT SURVEYOR Gender Identity Not on file Sexual Orientation Not on file COVID-19 Exposure Response Date Recorded In the last month, have you been in contact with someone who was confirmed or suspected to have Coronavirus / COVID-19? No / Unsure 10/04/2019 2:36 PM CDT documented as of this encounter Plan of Treatment Upcoming Encounters Date Type Department Care Team (Late st Contact Info) Description 04/07/2024 11:10 AM PROJECT SURVEYOR Lab [facility] [address] [phone] Lab, [facility] 04/07/2024 11:15 AM PROJECT SURVEYOR Clinical Support [facility] [address] [phone] Nurse, [facility] 05/12/2024 11:00 AM PROJECT SURVEYOR Lab [facility] [address] [phone] Lab, [facility] 05/12/2024 11:15 AM PROJECT SURVEYOR Office Visit [facility] [address] [phone] Kev Moser MD [address] [place] [phone] 05/12/2024 11:30 AM PROJECT SURVEYOR Clinical Support [facility] [address] [phone] Nurse, [facility] documented as of this encounter Procedures Procedure Name Priority Date/Time Associated Diagnosis Comments CMP (COMPREHENSIVE METABOLIC PANEL) Routine 10/04/2019 3:30 PM CDT Other autoimmune hemolytic anemias (HCC) Myelofibrosis (HCC) Iron deficiency anemia due to sideropenic dysphagia Iron deficiency anemia, unspecified iron deficiency anemia type COMPLETE BLOOD COUNT (CBC) WITH DIFF Routine 10/04/2019 3:30 PM CDT Other autoimmune hemolytic anemias (HCC) Myelofibrosis (HCC) Iron deficiency anemia due to sideropenic dysphagia Iron deficiency anemia, unspecified iron deficiency anemia type documented in this encounter Results * (ABNORMAL) COMPLETE BLOOD COUNT (CBC) WITH DIFF (10/04/2019 3:30 PM CDT) WBC 4.7 4.0 - 10.0 10*3/uL [facility] HGB 9.2(L) 13.7 - 17.5 g/dL [facility] HCT 28.9(L) 40.1 - 51.0 % [facility] PLT 144(L) 163 - 369 10*3/uL [facility] MPV 8.8(L) 9.4 - 12.4 fL [facility] RBC 3.25(L) 4.63 - 6.08 10*6/uL [facility] MCV 89 79 - 95 fL [facility] MCH 28.3 25.6 - 32.2 pg [facility] MCHC 31.8(L) 32.2 - 36.5 g/dL [facility] RDW 16.1(H) 11.6 - 14.4 % [facility] Absolute Neutrophil Count 3,555 cells/uL [facility] Absolute Seg Count 3,555 1,440 - 6,600 cells/uL [facility] Absolute Lymph Count 616(L) 760 - 4,000 cells/uL [facility] Absolute [place] Count 427 160 - 1,200 cells/uL [facility] Absolute Eos Count 95 0 - 300 cells/uL [facility] Absolute Baso Count 47 0 - 100 cells/uL [facility] Segmented Neutrophils 75(H) 36 - 66 % [facility] Lymphocytes 13(L) 19 - 40 % [facility] Monocytes 9 4 - 12 % [facility] Eosinophils 2 0 - 3 % [facility] Basophils 1 0 - 1 % [facility] WBC Estimate Normal [facility] Platelet Estimate Low [facility] RBC Morphology Abnormal [facility] Anisocytosis 1+ [facility] Blood 10/04/2019 3:30 PM CDT us Kev Moser MD HEMATOLOGY ORDERABLES Final Result [facility] [place] [address] [place] [address], * (ABNORMAL) CMP (COMPREHENSIVE METABOLIC PANEL) (10/04/2019 3:30 PM CDT) Glucose 70 70 - 105 mg/dL [facility] Blood Urea Nitrogen 46(H) 7 - 25 mg/dL [facility] Creatinine 2.5(H) 0.7 - 1.3 mg/dL [facility] Sodium 140 136 - 145 mEq/L [facility] Potassium 4.3 3.5 - 5.1 mEq/L [facility] Chloride 106 98 - 107 mEq/L [facility] Bicarbonate 24 21 - 31 mEq/L [facility] Total Bilirubin 0.5 0.3 - 1.0 mg/dL [facility] Alk. Phosphatase 78 34 - 104 U/L [facility] Aspartate Aminotransferase 12(L) 13 - 39 U/L [facility] Alanine Aminotransferase 12 7 - 52 U/L [facility] Total Protein 6.4 6.4 - 8.9 g/dL [facility] Albumin 4.2 3.5 - 5.7 g/dL [facility] Calcium 9.4 8.6 - 10.2 mg/dL [facility] Anion Gap 14.3 7.0 - 15.0 mEq/L [facility] Globulin 2.2 2.0 - 3.5 g/dL [facility] EGFR (Non ) 26.0(L) >60.0 ml/min [facility] EGFR () 31.5(L) >60.0 ml/min [facility] Blood 10/04/2019 3:30 PM CDT us Kev Moser MD CHEMISTRY ORDERABLES Final Result [facility] [address] [address], documented in this encounter Visit Diagnoses Diagnosis Other autoimmune hemolytic anemias Myelofibrosis (HCC) Myelofibrosis Iron deficiency anemia due to sideropenic dysphagia Iron deficiency anemia, unspecified iron deficiency anemia type documented in this encounter Additional Health Concerns Assessment Noted Time PHQ-9 Depression Total Score: 0 10/04/19 20 2:45 PM CDT documented as of this encounter Care Teams Substitute Teacher Relationship Specialty Start Date End Date Scott Oneill MD PCP - General Internal Medicine 04/29/17 Kev Prince DO Gastroenterology 04/29/17 12/09/22 Tavo Mishra MD [address] [place] [address] Internal Medicine 04/29/17 Gilmer Barnard MD [address] [place] [address] Consulting Physician Internal Medicine 08/28/17 4 documented as of this encounter
--- OUTSIDE RECORDS SUMMARY | 2024-04-04 01:31 | XMS_ITS | Encounter Summary ---
Author Organization [facility] Address [address] [place] [address] Phone Care Team Providers Care Facility Service Associate Name Role Phone Scott Oneill MD Primary Care Provider [phone] Kev Prince DO Unavailable [phone] Tavo Mishra MD Unavailable [phone] Gilmer Barnard MD Unavailable [phone] Kev Moser MD Unavailable [phone] Reason for Visit * Reason Comments Other Eliquis Sample Dispe nse Encounter Details Date Type Department Care Team (Latest Contact Info) Description 09/08/2020 3:15 PM CDT Clinical Support [facility] [address] [phone] Nurse, [facility] Myelofibrosis (HCC) (Primary Dx); Other autoimmune hemolytic [...] on file Legal Sex Male 3:42 PM 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 No / Unsure 09/08/2020 11:25 AM CDT documented as of this encounter Progress Notes * Fritz Pena, RN - 09/08/2020 3:15 PM CDT Eliquis 5mg Sample dispense Take one tablet by mouth twice daily. Amount: 4 boxes (56 tablets) LOT#:[id number] EXP: 06/2022 documented in this encounter Plan of Treatment Upcoming Encounters Date Type Department Care Team (Late st Contact Info) Description 04/07/2024 11:10 AM SLAG WHEELER Lab [facility] [address] [address] Lab, [facility] 04/07/2024 11:15 AM SLAG WHEELER Clinical Support [facility] [address] [phone] Nurse, [facility] 05/12/2024 11:00 AM SLAG WHEELER Lab [facility] [address] [phone] Lab, [facility] 05/12/2024 11:15 AM SLAG WHEELER Office Visit [facility] [address] [phone] Kev Moser MD [address] [place] [phone] 05/12/2024 11:30 AM SLAG WHEELER Clinical Support [facility] [address] [phone] Nurse, [facility] documented as of this encounter Visit Diagnoses Diagnosis Myelofibrosis (HCC)- Primary Myelofibrosis Other autoimmune hemolytic anemia (HCC) documented in this encounter Additional Health Concerns Assessment Noted Time PHQ-9 Depression Total Score: 0 08/12/19 11:41 AM CDT documented as of this encounter Care Teams Facility Service Associate Relationship Specialty Start Date End Date Scott Oneill MD PCP - General Internal Medicine 04/29/17 Kev Prince DO Gastroenterology 04/29/17 12/09/22 Tavo Mishra MD [address] [place] [phone] Internal Medicine 04/29/17 Gilmer Barnard MD [address] [address] Consulting Physician Internal Medicine 08/28/17 4 Kev Moser MD [address] [place] [phone] Consulting Physician Oncology 02/09/20 documented as of this encounter
--- OUTSIDE RECORDS SUMMARY | 2024-04-04 01:31 | XMS_ITS | Encounter Summary ---
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 No / Unsure 09/16/2019 9:13 AM CDT documented as of this encounter Plan of Treatment Upcoming Encounters Date Type Department Care Team (Late st Contact Info) Description 04/07/2024 11:10 AM SEMICONDUCTOR WAFERS SAW OPERATOR Lab [facility] [address] [phone] Lab, [facility] 04/07/2024 11:15 AM SEMICONDUCTOR WAFERS SAW OPERATOR Clinical Support [facility] [address] [phone] Nurse, [facility] 05/12/2024 11:00 AM SEMICONDUCTOR WAFERS SAW OPERATOR Lab [facility] [address] [phone] Lab, [facility] 05/12/2024 11:15 AM SEMICONDUCTOR WAFERS SAW OPERATOR Office Visit [facility] [address] [phone] Kev Moser MD [address] [place] [phone] 05/12/2024 11:30 AM SEMICONDUCTOR WAFERS SAW OPERATOR Clinical Support [facility] [address] [phone] Nurse, [facility] documented as of this encounter Visit Diagnoses Not on filedocumented in this encounter Additional Health Concerns Assessment Noted Time PHQ-9 Depression Total Score: 0 07/05/19 20 3:14 PM CDT documented as of this encounter Care Teams Review Analyst Relationship Specialty Start Date End Date Scott Oneill MD PCP - General Internal Medicine 04/29/17 Kev Prince DO Gastroenterology 04/29/17 12/09/22 Tavo Mishra MD [address] [place] [phone] Internal Medicine 04/29/17 Gilmer Barnadr MD [address] [place] [address] Consulting Physician Internal Medicine 08/28/17 4 documented as of this encounter
--- OUTSIDE RECORDS SUMMARY | 2024-04-04 01:31 | XMS_ITS | Encounter Summary ---
Author Organization [facility] Address [address] [place] [address] Phone Care Team Providers Care Harpooner Name Role Phone Scott Oneill MD Primary Care Provider Kev Prince DO Unavailable [phone] Tavo Mishra MD Unavailable [phone] Gilmer Barnard MD Unavailable [phone] Reason for Visit * Reason Comments Other Eliquis Samples Dipe nsed Encounter Details Date Type Department Care Team (Latest Contact Info) Description 01/07/2020 12:30 PM CDT Clinical Support [facility] [address] [phone] Nurse, [facility] 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); Myelofibrosis (HCC) Social History Tobacco Use Types [...] file Legal Sex Male 3:42 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 No / Unsure 01/07/2020 11:10 AM CDT documented as of this encounter Progress Notes * Fritz Pena, RN - 01/07/2020 12:30 PM CDT Eliquis Samples Dispensed Eliquis 5mg tablets Take one by mouth twice daily. Amount: 4 boxes (56 pills) given to patient today LOT#: [id number] EXP: 07/20 documented in this encounter Plan of Treatment Upcoming Encounters Date Type Department Care Team (Late st Contact Info) Description 04/07/2024 11:10 AM DIETARY SERVICE AIDE Lab [facility] [address] [address] Lab, [facility] 04/07/2024 11:15 AM DIETARY SERVICE AIDE Clinical Support [facility] [address] [phone] Nurse, [facility] 05/12/2024 11:00 AM DIETARY SERVICE AIDE Lab [facility] [address] [address] Lab, [facility] 05/12/2024 11:15 AM DIETARY SERVICE AIDE Office Visit [facility] [address] [phone] Kev Moser MD [address] [place] [phone] 05/12/2024 11:30 AM DIETARY SERVICE AIDE Clinical Support [facility] [address] [phone] Nurse, [facility] documented as of this encounter Visit Diagnoses Diagnosis 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 Myelofibrosis (HCC) Myelofibrosis documented in this encounter Additional Health Concerns Assessment Noted Time PHQ-9 Depression Total Score: 0 01/07/20 20 11:12 AM CDT documented as of this encounter Care Teams Harpooner Relationship Specialty Start Date End Date Scott Oneill MD PCP - General Internal Medicine 04/29/17 Kev Prince DO Gastroenterology 04/29/17 12/09/22 Tavo Mishra MD [address] [place] [address] Internal Medicine 04/29/17 Gilmer Barnard MD [address] [place] [address] Consulting Physician Internal Medicine 08/28/17 4 documented as of this encounter
--- OUTSIDE RECORDS SUMMARY | 2024-04-04 01:31 | XMS_ITS | Encounter Summary ---
Author Organization [employer] Care Team Providers Care Director Public Policy Name Role Phone Scott Oneill MD Primary Care Provider Kev Prince DO Unavailable [phone] Tavo Mishra MD Unavailable [phone] Gilmer Barnard MD Unavailable [phone] Kev Moser MD Unavailable [phone] Encounter Details Date Type Department Care Team (Latest Contact Info) Description 06/05/2020 Travel Social History Tobacco Use Types Packs/Day [...] on file Legal Sex Male 3:42 PM PARTS PROCESSOR Gender Identity Not on file Sexual Orientation Not on file COVID-19 Exposure Response Date Recorded In the last month, have you been in contact with someone who was confirmed or suspected to have Coronavirus / COVID-19? No / Unsure 06/05/2020 10:10 AM PARTS PROCESSOR documented as of this encounter Plan of Treatment Upcoming Encounters Date Type Department Care Team (Late st Contact Info) Description 04/07/2024 11:10 AM PARTS PROCESSOR Lab [facility] [address] [phone] Lab, [facility] 04/07/2024 11:15 AM PARTS PROCESSOR Clinical Support [facility] [address] [phone] Nurse, [facility] 05/12/2024 11:00 AM PARTS PROCESSOR Lab [facility] [address] [phone] Lab, [facility] 05/12/2024 11:15 AM PARTS PROCESSOR Office Visit [facility] [address] [phone] Kev Moser MD [address] [place] [phone] 05/12/2024 11:30 AM PARTS PROCESSOR Clinical Support [facility] [address] [phone] Nurse, [facility] documented as of this encounter Visit Diagnoses Not on filedocumented in this encounter Additional Health Concerns Assessment Noted Time PHQ-9 Depression Total Score: 0 05/12/19 21 10:54 AM PARTS PROCESSOR documented as of this encounter Care Teams Director Public Policy Relationship Specialty Start Date End Date Scott Oneill MD PCP - General Internal Medicine 04/29/17 Kev Prince DO Gastroenterology 04/29/17 12/09/22 Tavo Mishra MD [address] [place] [address] [phone] Internal Medicine 04/29/17 Gilmer Barnard MD [address] [phone] Consulting Physician Internal Medicine 08/28/17 4 Kev Moser MD [address] [place] [phone] Consulting Physician Oncology 02/09/20 documented as of this encounter
--- OUTSIDE RECORDS SUMMARY | 2024-04-04 01:31 | XMS_ITS | Encounter Summary ---
Author Organization [facility] Care Team Providers Care Hander In Name Role Phone Scott Oneill MD Primary Care Provider [phone] Kev Prince DO Unavailable [phone] Tavo Mishra MD Unavailable [phone] Gilmer Barnard MD Unavailable [phone] Kev Moser MD Unavailable [phone] Encounter Details Date Type Department Care Team (Latest Contact Info) Description 04/06/2020 Travel Social History Tobacco Use Types Packs/Day [...] on file Legal Sex Male 3:42 PM WAXER OPERATOR Gender Identity Not on file Sexual Orientation Not on file COVID-19 Exposure Response Date Recorded In the last month, have you been in contact with someone who was confirmed or suspected to have Coronavirus / COVID-19? No / Unsure 04/06/2020 12:00 PM WAXER OPERATOR documented as of this encounter Plan of Treatment Upcoming Encounters Date Type Department Care Team (Late st Contact Info) Description 04/07/2024 11:10 AM WAXER OPERATOR Lab [facility] [address] [phone] Lab, [facility] 04/07/2024 11:15 AM WAXER OPERATOR Clinical Support [facility] [address] [phone] Nurse, [facility] 05/12/2024 11:00 AM WAXER OPERATOR Lab [facility] [address] [phone] Lab, [facility] 05/12/2024 11:15 AM WAXER OPERATOR Office Visit [facility] [address] [phone] Kev Moser MD [address] [place] [phone] 05/12/2024 11:30 AM WAXER OPERATOR Clinical Support [facility] [address] [phone] Nurse, [facility] documented as of this encounter Visit Diagnoses Not on filedocumented in this encounter Additional Health Concerns Assessment Noted Time PHQ-9 Depression Total Score: 0 01/07/20 20 11:12 AM CDT documented as of this encounter Care Teams Hander In Relationship Specialty Start Date End Date Scott Oneill MD PCP - General Internal Medicine 04/29/17 Kev Prince DO Gastroenterology 04/29/17 12/09/22 Tavo Mishra MD [address] [place] [address] [phone] Internal Medicine 04/29/17 Gilmer Barnard MD [address] [place] [address] [phone] Consulting Physician Internal Medicine 08/28/17 4 Kev Moser MD [address] [place] [phone] Consulting Physician Oncology 02/09/20 documented as of this encounter
--- OUTSIDE RECORDS SUMMARY | 2024-04-04 01:31 | XMS_ITS | Encounter Summary ---
Author Organization [employer] Care Team Providers Care Technical Sales Engineer Name Role Phone Scott Oneill MD Primary Care Provider Kev Prince DO Unavailable [phone] Tavo Mishra MD Unavailable [phone] Gilmer Barnard MD Unavailable [phone] Kev Moser MD Unavailable [phone] Encounter Details Date Type Department Care Team (Latest Contact Info) Description 02/09/2020 Travel Social History Tobacco Use Types Packs/Day [...] on file Legal Sex Male 3:42 PM KENO WRITER / RUNNER Gender Identity Not on file Sexual Orientation Not on file COVID-19 Exposure Response Date Recorded In the last month, have you been in contact with someone who was confirmed or suspected to have Coronavirus / COVID-19? No / Unsure 02/09/2020 8:53 AM KENO WRITER / RUNNER documented as of this encounter Plan of Treatment Upcoming Encounters Date Type Department Care Team (Late st Contact Info) Description 04/07/2024 11:10 AM KENO WRITER / RUNNER Lab [facility] [address] [phone] Lab, [facility] 04/07/2024 11:15 AM KENO WRITER / RUNNER Clinical Support [facility] [address] [phone] Nurse, [facility] 05/12/2024 11:00 AM KENO WRITER / RUNNER Lab [facility] [address] [phone] Lab, [facility] 05/12/2024 11:15 AM KENO WRITER / RUNNER Office Visit [facility] [address] [phone] Kev Moser MD [address] [place] [phone] 05/12/2024 11:30 AM KENO WRITER / RUNNER Clinical Support [facility] [address] [phone] Nurse, [facility] documented as of this encounter Visit Diagnoses Not on filedocumented in this encounter Additional Health Concerns Assessment Noted Time PHQ-9 Depression Total Score: 0 01/07/20 20 11:12 AM CDT documented as of this encounter Care Teams Technical Sales Engineer Relationship Specialty Start Date End Date Scott Oneill MD PCP - General Internal Medicine 04/29/17 Kev Prince DO Gastroenterology 04/29/17 12/09/22 Tavo Mishra MD [address] [place] [address] [phone] Internal Medicine 04/29/17 Gilmer Barnard MD [address] [place] [address] [phone] Consulting Physician Internal Medicine 08/28/17 4 Kev Moser MD [address] [place] [phone] Consulting Physician Oncology 02/09/20 documented as of this encounter
--- OUTSIDE RECORDS SUMMARY | 2024-04-04 01:31 | XMS_ITS | Encounter Summary ---
Author Organization [facility] Address [address] [place] [address] Phone Care Team Providers Care Court Orderly Name Role Phone Scott Oneill MD Primary Care Provider Kev Prince DO Unavailable [phone] Tavo Mishra MD Unavailable [phone] Gilmer Barnard MD Unavailable [phone] Reason for Visit * Reason Comments Other Medication Dispense Encounter Details Date Type Department Care Team (Latest Contact Info) Description 09/16/2019 9:15 AM CDT Clinical Support [facility] [address] [phone] Nurse, [facility] Myelofibrosis (HCC) (Primary Dx); Other autoimmune hemolytic anemias (HCC) Social History Tobacco Use Types Packs/Day [...] on file Legal Sex Male 3:42 PM DIET CONSULTANT Gender Identity Not on file Sexual Orientation Not on file COVID-19 Exposure Response Date Recorded In the last month, have you been in contact with someone who was confirmed or suspected to have Coronavirus / COVID-19? No / Unsure 09/16/2019 9:13 AM CDT documented as of this encounter Progress Notes * Fritz Pena RN - 09/16/2019 9:15 AM CDT Eliquis 5mg Tablet Samples Dispensed 4 Boxes =56 tablets Take 1 tab BID LOT: [id number] EXP: 09/19 documented in this encounter Plan of Treatment Upcoming Encounters Date Type Department Care Team (Late st Contact Info) Description 04/07/2024 11:10 AM DIET CONSULTANT Lab [facility] [address] [phone] Lab, [facility] 04/07/2024 11:15 AM DIET CONSULTANT Clinical Support [facility] [address] [phone] Nurse, [facility] 05/12/2024 11:00 AM DIET CONSULTANT Lab [facility] [address] [phone] Lab, [facility] 05/12/2024 11:15 AM DIET CONSULTANT Office Visit [facility] [address] [phone] Kev Moser MD [address] [place] [phone] 05/12/2024 11:30 AM DIET CONSULTANT Clinical Support [facility] [address] [phone] Nurse, [facility] documented as of this encounter Visit Diagnoses Diagnosis Myelofibrosis (HCC)- Primary Myelofibrosis Other autoimmune hemolytic anemias documented in this encounter Additional Health Concerns Assessment Noted Time PHQ-9 Depression Total Score: 0 07/05/19 20 3:14 PM CDT documented as of this encounter Care Teams Court Orderly Relationship Specialty Start Date End Date Scott Oneill MD PCP - General Internal Medicine 04/29/17 Kev Prince DO Gastroenterology 04/29/17 12/09/22 Tavo Mishra MD [address] [place] [address] Internal Medicine 04/29/17 Gilmer Barnard MD [address] [place] [phone] Consulting Physician Internal Medicine 08/28/17 4 documented as of this encounter
--- OUTSIDE RECORDS SUMMARY | 2024-04-04 01:31 | XMS_ITS | Encounter Summary ---
Author Organization [facility] Address [address] [place] [address] Phone Care Team Providers Care Power Cutting Machine Operator Name Role Phone Scott Oneill MD Primary Care Provider Kev Prince DO Unavailable [phone] Tavo Mishra MD Unavailable [phone] Gilmer Barnard MD Unavailable [phone] Kev Moser MD Unavailable Encounter Details Date Type Department Care Team (Late st Contact Info) Description 07/10/2020 4:30 PM CDT Immunization [facility] - Primary Care - [place] [address] [place] [address] Roseline Moffett MD [address] [place] [address] Need for vaccination (Primary Dx) Discharge Disposition: Discharged to home or Selfcare Social History Tobacco Use Types Packs/Day Years [...] on file Legal Sex Male 3:42 PM BOOTMAKER Gender Identity Not on file Sexual Orientation Not on file COVID-19 Exposure Response Date Recorded In the last month, have you been in contact with someone who was confirmed or suspected to have Coronavirus / COVID-19? No / Unsure 07/10/2020 12:37 PM CDT documented as of this encounter Patient Instructions * Patient Instructions* Alberto Tom CMA - 07/10/2020 4:30 PM CDT You received your second immunization for COVID-19 07/10/2020 at [facility]. Please check the card provided to you with the name of the immunization. Remember, the vaccine does not allow the SARS-CoV-2 virus to replicate and it cannot cause any known illness. No vaccine can cause a patient to develop the disease against which they were vaccinated. It can take up to 14 days after your second dose to gain full immunity. Possible side effects that may be experienced after the second COVID-19 immunization include: ??? Soreness, swelling, or redness at the injection site. ??? Fatigue or malaise (feeling tired or ill) ??? Headache ??? Muscle or joint pain (body aches) ??? Chills ??? Fever ??? Nausea ??? Lymphadenopathy (enlargement of the lymph nodes) These side effects usually start within a day or two of getting the vaccine. They might feel like flu symptoms and might even affect your ability to do daily activities, but they should go away in a few days. Call your primary healthcare provider if you have any side effects that bother you or do not go away. If you experience a severe allergic reaction, call , or go to the nearest hospital. ?? An ???adverse event?? is any health problem that happens after a shot or other vaccine. For instance, signs of an allergic reaction - itching, hives, shortness of breath or difficulty breathing -should be reported immediately. You may report vaccine side effects to FDA/CDC Vaccine Adverse Event Reporting System (VAERS). The [facility] toll-free number is or report online to https://vaers.[facility].gov/reportevent.html. Smartphone users may choose to enroll in the V-safe tool that uses text messaging and web surveys to check in with people who have been vaccinated to identify potential side effects after COVID-19 vaccination. For more information on how to sign up, visit: www.cdc.gov/vsafe. Wishing you good health, [facility] An appointment will need to be scheduled for you in 28 days to receive the second dose of the COVID-19 vaccination. You will be receiving a scheduling ticket through [employer] so that you can schedule a time that is convenient for you. documented in this encounter Progress Notes * Alberto Tom CMA - 07/10/2020 4:30 PM CDT Britton is here today for COVID-19 immunization per federal guidelines/written order. See immunization activity for details. Britton was observed post- immunization for a minimum of 15 minutes without evidence of intolerance. Patient instructions added for patient to review in his [employer] account. . COVID-19 post-vaccination Patient Instructions added to After Visit Summary for patient to review in his [employer] account. documented in this encounter Plan of Treatment Upcoming Encounters Date Type Department Care Team (Late st Contact Info) Description 04/07/2024 11:10 AM BOOTMAKER Lab [facility] [address] [phone] Lab, [facility] 04/07/2024 11:15 AM BOOTMAKER Clinical Support [facility] [address] [phone] Nurse, [facility] 05/12/2024 11:00 AM BOOTMAKER Lab [facility] [address] [phone] Lab, [facility] 05/12/2024 11:15 AM BOOTMAKER Office Visit [facility] [address] [phone] Kev Moser MD [address] [place] [phone] 05/12/2024 11:30 AM BOOTMAKER Clinical Support [facility] [place] [address] [place] [phone] Nurse, [facility] documented as of this encounter Visit Diagnoses Diagnosis Need for vaccination- Primary Need for prophylactic vaccination and inoculation against unspecified single disease documented in this encounter Additional Health Concerns Assessment Noted Time PHQ-9 Depression Total Score: 0 05/12/19 21 10:54 AM BOOTMAKER documented as of this encounter Care Teams Power Cutting Machine Operator Relationship Specialty Start Date End Date Scott Oneill MD PCP - General Internal Medicine 04/29/17 Kev Prince DO Gastroenterology 04/29/17 12/09/22 Tavo Mishra MD [address] [place] [address] [phone] Internal Medicine 04/29/17 Gilmer Barnard MD [address] [place] [address] Consulting Physician Internal Medicine 08/28/17 4 Kev Moser MD [address] [place] [phone] Consulting Physician Oncology 02/09/20 documented as of this encounter
--- OUTSIDE RECORDS SUMMARY | 2024-04-04 01:31 | XMS_ITS | Encounter Summary ---
Author Organization [facility] Address [address] [place] [address] Phone Care Team Providers Care Manufacturing Production Technician Name Role Phone Scott Oneill MD Primary Care Provider Kev Prince DO Unavailable [phone] Tavo Mishra MD Unavailable [phone] Gilmer Barnard MD Unavailable [phone] Kev Moser MD Unavailable Encounter Details Date Type Department Care Team (Late st Contact Info) Description 05/13/2020 11:40 AM HARDWOOD FLOOR SANDER Immunization [facility] - Primary Care - [place] [address] [place] [address] Roseline Moffett MD [address] [place] [address] Need for vaccination Discharge Disposition: Discharged to home or Selfcare [...] on file Legal Sex Male 3:42 PM HARDWOOD FLOOR SANDER Gender Identity Not on file Sexual Orientation Not on file COVID-19 Exposure Response Date Recorded In the last month, have you been in contact with someone who was confirmed or suspected to have Coronavirus / COVID-19? No / Unsure 05/12/2020 10:44 AM HARDWOOD FLOOR SANDER documented as of this encounter Patient Instructions * Patient Instructions* Dora Ann RN - 05/13/2020 11:40 AM HARDWOOD FLOOR SANDER You received your first immunization for COVID-19 05/13/2020 at [facility]. Please check the card provided to you with the name of the immunization and the recommended date for your second immunization. You will be able to schedule your second immunization visit from your [facility] [employer] account. Remember, the vaccine does not allow the SARS-CoV-2 virus to replicate and it cannot cause any known illness. No vaccine can cause a patient to develop the disease against which they were vaccinated. Common side effects that may be experienced after the first COVID-19 immunization include: ??? Soreness at the injection site. ??? Low grade fever These side effects typically go away in a few days. Please immediately report any adverse events to the [facility] COVID Hotline at [address] [place] [address] ([phone]). ??? An ???adverse event?? is any health problem that happens after a shot or other vaccine. For instance, signs of an allergic reaction - itching, hives, shortness of breath or difficulty breathing - should be reported immediately. Wishing you good health, [facility] An appointment will need to be scheduled for you in 28 days to receive the second dose of the COVID-19 vaccination. You will be receiving a scheduling ticket through [employer] so that you can schedule a time that is convenient for you. WOOD FLOOR SANDER documented in this encounter Progress Notes * Dora Ann RN - 05/13/2020 11:40 AM CST Britton is here today for COVID-19 immunization per federal guidelines/written order. See immunization activity for details. Britton was observed post- immunization for a minimum of 15 minutes without evidence of intolerance. Patient instructions added for patient to review in his MyChart account. . COVID-19 post-vaccination Patient Instructions added to After Visit Summary for patient to review in his MyChart account. WOOD FLOOR SANDER documented in this encounter Plan of Treatment Upcoming Encounters Date Type Department Care Team (Late st Contact Info) Description 04/07/2024 11:10 AM HARDWOOD FLOOR SANDER Lab [facility] [address] [phone] Lab, [facility] 04/07/2024 11:15 AM HARDWOOD FLOOR SANDER Clinical Support [facility] [address] [phone] Nurse, [facility] 05/12/2024 11:00 AM HARDWOOD FLOOR SANDER Lab [facility] [address] [phone] Lab, [facility] 05/12/2024 11:15 AM HARDWOOD FLOOR SANDER Office Visit [facility] [address] [phone] Kev Moser MD [address] [place] [phone] 05/12/2024 11:30 AM HARDWOOD FLOOR SANDER Clinical Support [facility] [address] [phone] Nurse, [facility] documented as of this encounter Visit Diagnoses Diagnosis Need for vaccination Need for prophylactic vaccination and inoculation against unspecified single disease documented in this encounter Additional Health Concerns Assessment Noted Time PHQ-9 Depression Total Score: 0 05/12/19 21 10:54 AM HARDWOOD FLOOR SANDER documented as of this encounter Care Teams Manufacturing Production Technician Relationship Specialty Start Date End Date Scott Oneill MD PCP - General Internal Medicine 04/29/17 Kev Prince DO Gastroenterology 04/29/17 12/09/22 Tavo Mishra MD [address] [place] [address] [phone] Internal Medicine 04/29/17 Gilmer Barnard MD [address] [place] [address] [phone] Consulting Physician Internal Medicine 08/28/17 4 Kev Moser MD [address] [place] [phone] Consulting Physician Oncology 02/09/20 documented as of this encounter
--- OUTSIDE RECORDS SUMMARY | 2024-04-04 01:31 | XMS_ITS | Encounter Summary ---
Author Organization [facility] Address [address] [place] [address] Phone Care Team Providers Care Utilization Review Specialist Name Role Phone Scott Oneill MD Primary Care Provider Kev Prince DO Unavailable [phone] Tavo Mishra MD Unavailable [phone] Gilmer Barnard MD Unavailable [phone] Kev Moser MD Unavailable [phone] Reason for Visit * Reason Comments Other Eliquis Sample Encounter Details Date Type Department Care Team (Latest Contact Info) Description 03/10/2020 11:00 AM COD CLERK Clinical Support [facility] [address] [phone] Nurse, [facility] Other autoimmune hemolytic anemia (HCC) [...] on file Legal Sex Male 3:42 PM COD CLERK Gender Identity Not on file Sexual Orientation Not on file COVID-19 Exposure Response Date Recorded In the last month, have you been in contact with someone who was confirmed or suspected to have Coronavirus / COVID-19? No / Unsure 03/10/2020 11:00 AM COD CLERK documented as of this encounter Plan of Treatment Upcoming Encounters Date Type Department Care Team (Late st Contact Info) Description 04/07/2024 11:10 AM COD CLERK Lab [facility] [address] [address] Lab, [facility] 04/07/2024 11:15 AM COD CLERK Clinical Support [facility] [address] [phone] Nurse, [facility] 05/12/2024 11:00 AM COD CLERK Lab [facility] [address] [phone] Lab, [facility] 05/12/2024 11:15 AM COD CLERK Office Visit [facility] [address] [phone] Kev Moser MD [address] [place] [phone] 05/12/2024 11:30 AM COD CLERK Clinical Support [facility] [address] [phone] Nurse, [facility] documented as of this encounter Visit Diagnoses Diagnosis Other autoimmune hemolytic anemia (HCC) documented in this encounter Additional Health Concerns Assessment Noted Time PHQ-9 Depression Total Score: 0 01/07/20 20 11:12 AM CDT documented as of this encounter Care Teams Utilization Review Specialist Relationship Specialty Start Date End Date Scott Oneill MD PCP - General Internal Medicine 04/29/17 Kev Prince DO Gastroenterology 04/29/17 12/09/22 Tavo Mishra MD [address] [place] [address] Internal Medicine 04/29/17 Gilmer Barnard MD [address] [place] [phone] Consulting Physician Internal Medicine 08/28/17 4 Kev Moser MD [address] [place] [phone] Consulting Physician Oncology 02/09/20 documented as of this encounter
--- OUTSIDE RECORDS SUMMARY | 2024-04-04 01:31 | XMS_ITS | Encounter Summary ---
Author Organization [employer] Care Team Providers Care Simulation Tech Name Role Phone Scott Oneill MD Primary Care Provider Kev Prince DO Unavailable [phone] Tavo Mishra MD Unavailable [phone] Gilmer Barnard MD Unavailable [phone] Kev Moser MD Unavailable [phone] Encounter Details Date Type Department Care Team (Latest Contact Info) Description 05/12/2020 Travel Social History Tobacco Use Types Packs/Day [...] on file Legal Sex Male 3:42 PM SOFTWARE TESTER Gender Identity Not on file Sexual Orientation Not on file COVID-19 Exposure Response Date Recorded In the last month, have you been in contact with someone who was confirmed or suspected to have Coronavirus / COVID-19? No / Unsure 05/12/2020 10:44 AM SOFTWARE TESTER documented as of this encounter Plan of Treatment Upcoming Encounters Date Type Department Care Team (Late st Contact Info) Description 04/07/2024 11:10 AM SOFTWARE TESTER Lab [facility] [address] [phone] Lab, [facility] 04/07/2024 11:15 AM SOFTWARE TESTER Clinical Support [facility] [address] [phone] Nurse, [facility] 05/12/2024 11:00 AM SOFTWARE TESTER Lab [facility] [address] [phone] Lab, [facility] 05/12/2024 11:15 AM SOFTWARE TESTER Office Visit [facility] [address] [phone] Kev Moser MD [address] [place] [place] [phone] 05/12/2024 11:30 AM SOFTWARE TESTER Clinical Support [facility] [address] [phone] Nurse, [facility] documented as of this encounter Visit Diagnoses Not on filedocumented in this encounter Additional Health Concerns Assessment Noted Time PHQ-9 Depression Total Score: 0 05/12/19 21 10:54 AM SOFTWARE TESTER documented as of this encounter Care Teams Simulation Tech Relationship Specialty Start Date End Date Scott Oneill MD PCP - General Internal Medicine 04/29/17 Kev Prince DO Gastroenterology 04/29/17 12/09/22 Tavo Mishra MD [address] [place] [address] [phone] Internal Medicine 04/29/17 Gilmer Barnard MD [address] [phone] Consulting Physician Internal Medicine 08/28/17 4 Kev Moser MD [address] [place] [place] [phone] Consulting Physician Oncology 02/09/20 documented as of this encounter
--- OUTSIDE RECORDS SUMMARY | 2024-04-04 01:31 | XMS_ITS | Encounter Summary ---
Author Organization [employer] Care Team Providers Care Row Boss Name Role Phone Scott Oneill MD Primary Care Provider [phone] Kev Prince DO Unavailable [phone] Tavo Mishra MD Unavailable [phone] Gilmer Barnard MD Unavailable [phone] Kev Moser MD Unavailable [phone] Encounter Details Date Type Department Care Team (Latest Contact Info) Description 09/08/2020 Travel Social History Tobacco Use Types Packs/Day [...] on file Legal Sex Male 3:42 PM POWDER CUTTING OPERATOR Gender Identity Not on file Sexual [...] st Contact Info) Description 04/07/2024 11:10 AM POWDER CUTTING OPERATOR Lab [facility] [address] [phone] Lab, [facility] 04/07/2024 11:15 AM POWDER CUTTING OPERATOR Clinical Support [facility] [address] [phone] Nurse, [facility] 05/12/2024 11:00 AM POWDER CUTTING OPERATOR Lab [facility] [address] [phone] Lab, [facility] 05/12/2024 11:15 AM POWDER CUTTING OPERATOR Office Visit [facility] [address] [phone] Kev Moser MD [address] [place] [phone] 05/12/2024 11:30 AM POWDER CUTTING OPERATOR Clinical Support [facility] [address] [phone] Nurse, [facility] documented as of this encounter Visit Diagnoses Not on filedocumented in this encounter Additional Health Concerns Assessment Noted Time PHQ-9 Depression Total Score: 0 08/12/19 11:41 AM CDT documented as of this encounter Care Teams Row Boss Relationship Specialty Start Date End Date Scott Oneill MD PCP - General Internal Medicine 04/29/17 Kev Prince DO Gastroenterology 04/29/17 12/09/22 Tavo Mishra MD [address] [place] [address] [phone] Internal Medicine 04/29/17 Gilmer Barnard MD [address] [phone] Consulting Physician Internal Medicine 08/28/17 4 Kev Moser MD [address] [place] [phone] Consulting Physician Oncology 02/09/20 documented as of this encounter
--- OUTSIDE RECORDS SUMMARY | 2024-04-04 01:31 | XMS_ITS | Encounter Summary ---
Author Organization [employer] Care Team Providers Care Construction Technology Instructor Name Role Phone Scott Oneill MD Primary Care Provider [phone] Kev Prince DO Unavailable [phone] Tavo Mishra MD Unavailable [phone] Gilmer Barnard MD Unavailable [phone] Kev Moser MD Unavailable [phone] Encounter Details Date Type Department Care Team (Latest Contact Info) Description 03/10/2020 Travel Social History Tobacco Use Types Packs/Day [...] on file Legal Sex Male 3:42 PM COLLEGE AND CAREER COUNSELOR Gender Identity Not on file Sexual Orientation Not on file COVID-19 Exposure Response Date Recorded In the last month, have you been in contact with someone who was confirmed or suspected to have Coronavirus / COVID-19? No / Unsure 03/10/2020 11:00 AM COLLEGE AND CAREER COUNSELOR documented as of this encounter Plan of Treatment Upcoming Encounters Date Type Department Care Team (Late st Contact Info) Description 04/07/2024 11:10 AM COLLEGE AND CAREER COUNSELOR Lab [facility] [address] [phone] Lab, [facility] 04/07/2024 11:15 AM COLLEGE AND CAREER COUNSELOR Clinical Support [facility] [address] [phone] Nurse, [facility] 05/12/2024 11:00 AM COLLEGE AND CAREER COUNSELOR Lab [facility] [address] [phone] Lab, [facility] 05/12/2024 11:15 AM COLLEGE AND CAREER COUNSELOR Office Visit [facility] [address] [phone] Kev Moser MD [address] [place] [phone] 05/12/2024 11:30 AM COLLEGE AND CAREER COUNSELOR Clinical Support [facility] [address] [phone] Nurse, [facility] documented as of this encounter Visit Diagnoses Not on filedocumented in this encounter Additional Health Concerns Assessment Noted Time PHQ-9 Depression Total Score: 0 01/07/20 20 11:12 AM CDT documented as of this encounter Care Teams Construction Technology Instructor Relationship Specialty Start Date End Date Scott Oneill MD PCP - General Internal Medicine 04/29/17 Kev Prince DO Gastroenterology 04/29/17 12/09/22 Tavo Mishra MD [address] [place] [address] [phone] Internal Medicine 04/29/17 Gilmer Barnard MD [address] [place] [address] [phone] Consulting Physician Internal Medicine 08/28/17 4 Kev Moser MD [address] [place] [phone] Consulting Physician Oncology 02/09/20 documented as of this encounter
--- OUTSIDE RECORDS SUMMARY | 2024-04-04 01:31 | XMS_ITS | Encounter Summary ---
Author Organization [facility] Address [address] [place] [id number] Care Team Providers Care Engine Mechanic Name Role Phone Scott Oneill MD Primary Care Provider [phone] Kev Prince DO Unavailable [phone] Tavo Mishra MD Unavailable [phone] Gilmer Barnard MD Unavailable [phone] Kev Moser MD Unavailable [phone] Encounter Details Date Type Department Care Team (Late st Contact Info) Description 04/06/2020 Lab Requisition [facility] Mobile Testing [facility] [address] [place] [phone] [place] [address] [place] [address] Social History Tobacco Use Types Packs/Day Years [...] on file Legal Sex Male 3:42 PM PHYSICIAN CODING SPECIALIST Gender Identity Not on file Sexual Orientation Not on file COVID-19 Exposure Response Date Recorded In the last month, have you been in contact with someone who was confirmed or suspected to have Coronavirus / COVID-19? No / Unsure 04/06/2020 12:00 PM PHYSICIAN CODING SPECIALIST documented as of this encounter Plan of Treatment Upcoming Encounters Date Type Department Care Team (Late st Contact Info) Description 04/07/2024 11:10 AM PHYSICIAN CODING SPECIALIST Lab [facility] [address] [phone] Lab, [facility] 04/07/2024 11:15 AM PHYSICIAN CODING SPECIALIST Clinical Support [facility] [address] [phone] Nurse, [facility] 05/12/2024 11:00 AM PHYSICIAN CODING SPECIALIST Lab [facility] [address] [phone] Lab, [facility] 05/12/2024 11:15 AM PHYSICIAN CODING SPECIALIST Office Visit [facility] [address] [phone] Kev Moser MD [address] [place] [phone] 05/12/2024 11:30 AM PHYSICIAN CODING SPECIALIST Clinical Support [facility] [address] [phone] Nurse, [facility] documented as of this encounter Procedures Procedure Name Priority Date/Time Associated Diagnosis Comments SARS-COV-2 PCR [facility] ONLY Routine 04/06/2020 1:31 PM PHYSICIAN CODING SPECIALIST documented in this encounter Visit Diagnoses Not on filedocumented in this encounter Additional Health Concerns Assessment Noted Time PHQ-9 Depression Total Score: 0 01/07/20 20 11:12 AM CDT documented as of this encounter Care Teams Engine Mechanic Relationship Specialty Start Date End Date Scott Oneill MD PCP - General Internal Medicine 04/29/17 Kev Prince DO Gastroenterology 04/29/17 12/09/22 Tavo Mishra MD [address] [place] [address] [phone] Internal Medicine 04/29/17 Gilmer Barnard MD [address] [place] [address] [phone] Consulting Physician Internal Medicine 08/28/17 4 Kev Moser MD [address] [place] [phone] Consulting Physician Oncology 02/09/20 documented as of this encounter
--- OUTSIDE RECORDS SUMMARY | 2024-04-04 01:31 | XMS_ITS | Encounter Summary ---
Author Organization [facility] Address [address] [place] [address] Phone Care Team Providers Care Wiener Packer Name Role Phone Scott Oneill MD Primary Care Provider [phone] Kev Prince DO Unavailable [phone] Tavo Mishra MD Unavailable [phone] Gilmer Barnard MD Unavailable [phone] Kev Moser MD Unavailable [phone] Reason for Visit * Reason Comments Follow-up Encounter Details Date Type Department Care Team (Latest Contact Info) Description 11/24/2020 11:30 AM CDT Office [facility] [address] [phone] Kev Moser MD [address] [place] [phone] Myelofibrosis (HCC) (Primary Dx); Stage 3a chronic kidney disease (HCC); Iron deficiency anemia due to sideropenic dysphagia; Iron deficiency anemia, unspecified iron deficiency anemia type; Other autoimmune hemolytic anemia (HCC) Social History [...] on file 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 No / Unsure 11/24/2020 11:15 AM CDT documented as of this encounter Last Filed Vital Signs Vital Sign Reading Time Taken Comments Blood Pressure 160/80 11/24/2020 11:26 AM CDT Pulse 57 11/24/2020 11:26 AM CDT Temperature 36.2 ??C (97.2 ??F) 11/24/2020 1 1:26 AM CDT Respiratory Rate 18 11/24/2020 11:2 6 AM CDT Oxygen Saturation 97% 11/24/2020 11: 26 AM CDT Inhaled Oxygen Concentration - - Weight 103.1 kg (227 lb 6.4 oz) 021 11:26 AM CDT Height 165.1 cm (5' 5 ) 11/24/2020 11:2 6 AM CDT Body Mass Index 37.84 11/24/2020 11:26 AM CDT documented in this encounter Progress Notes * Kev Moser MD - 11/24/2020 11:30 AM CDT Patient: Britton Nielsen Age: 65 y.o. : 1955 Encounter Dept: [facility] Encounter Date: 11/24/2020 Care Team: Current Providers PCP: Scott Oneill MD Care Team Provider: Kev Prince DO Care Team Provider: Tavo Mishra MD Care Team Provider: Gilmer Barnard MD Care Team Provider: Kev Moser MD Encounter Provider: Kev Moser MD Referring Provider: not found Consulting Physician: Kev Moser MD HISTORY OF PRESENT ILLNESS: Britton returns. He is doing stable. He has no headaches, double vision or shortness of breath. DIAGNOSIS: 1. Glomerulonephritis, sclerosing (renal biopsy 04/01/17). 2. Significant anemia with bleeding ulcer, chronic kidney disease, and patient is on Cytoxan with iron deficiency. 3. Recurrent bleeding ulcers. 4. Patient had a positive BRIANNA at an outside hospital. 5. Bilateral pulmonary emboli, bilateral lower extremity DVT (10/2017). 6. Coronary artery disease with CABG 06/2020. PAST TREATMENT: 1. Gastroduodenal artery embolization at [facility] 05/2017. 2. Cytoxan 100 mg daily. [...] Coronary artery disease with CABG 06/2020. PLAN: Continue to follow bloodwork. Continue to follow with Cardiology and Nephrology. Followup in three to four months. Okay to continue Eliquis samples. TIME SPENT: REVIEW OF SYSTEMS: See HPI; [...] reviewed. Kev Moser MD, FACP/rmd Vitals: Vitals: 11/24/20 1126 BP: 160/80 BP Location: Left Arm BP Position: Sitting BP Cuff Size: Regular Pulse: 57 Resp: 18 Temp: 97.2 ??F (36.2 ??C) TempSrc: Temporal SpO2: 97% Weight: 227 lb 6.4 oz (103.1 kg) Height: 5' 5 (1.651 m) Body surface area is 2.17 meters squared. Body mass index is 37.84 kg/m??. Allergies: No Known Allergies PMH/SgH/FH/SH: Past [...] Years since quittin.5 ??? Smokeless tobacco: Never Used Vaping Use [...] Current Medications: Outpatient Encounter Medications as of 11/24/2020 Medication Sig Dispense Refill ??? apixaban (Eliquis) [...] 30 Tab 0 ??? ergocalciferol (VITAMIN D) 12424 UNIT Capsule Take 50,000 Units by mouth [...] 20 mEq by mouth 2 timesdaily. ??? sodium bicarbonate 650 MG Tablet Take 650 mg by mouth 2 times daily. ??? tadalafil (CIALIS) 20 MG Tablet TAKE 1 TABLET BY MOUTH ONCE DAILY NEEDED ??? traMADol (ULTRAM) 50 MG Tablet 0 No facility-administered encounter medications on file as of 11/24/2020. Labs: No visits with results within 7 Day(s) from this visit. Latest known visit with results is: Lab Requisition on 04/06/2020 Component Date Value Ref Range Status ??? [facility] REDITUS SARS-COV-2 RNA 04/06/2020 NOT DETECTED Final documented in this encounter Plan of Treatment Upcoming Encounters Date Type Department Care Team (Late st Contact Info) Description 04/07/2024 11:10 AM PAPER MAKER Lab [facility] [address] [phone] Lab, [facility] 04/07/2024 11:15 AM PAPER MAKER Clinical Support [facility] [address] [phone] Nurse, [facility] 05/12/2024 11:00 AM PAPER MAKER Lab [facility] [address] [phone] Lab, [facility] 05/12/2024 11:15 AM PAPER MAKER Office Visit [facility] [address] [phone] Kev Moser MD [address] [place] [phone] 05/12/2024 11:30 AM PAPER MAKER Clinical Support [facility] [address] [phone] Nurse, [facility] documented as of this encounter Results * VITAMIN B12 (03/02/2021 11:00 AM PAPER MAKER) Vitamin B12 269 180 - 914 pg/mL [facility] Blood 03/02/2021 11:0 0 AM PAPER MAKER Narrative [facility] - 03/05/2021 2:56 PM PAPER MAKER Release to patient->Immediate us Kev Moser MD CHEMISTRY ORDERABLES Final Result [facility] [address], [place] [phone] * FOLIC ACID (FOLATE) (03/02/2021 11:00 AM PAPER MAKER) Folate 15.23 >=5.90 ng/mL [facility] Blood 03/02/2021 11:0 0 AM PAPER MAKER Narrative [facility] - 03/05/2021 2:56 PM PAPER MAKER Release to patient->Immediate Kev Moser MD CHEMISTRY ORDERABLES Final Result Performing Organization Address City/[facility]/ZIP Co de Phone Number [facility] [address] [place] [address], * RETICULOCYTE COUNT (RETIC) (03/02/2021 11:00 AM PAPER MAKER) Reticulocyte count 1.11 0.51 - 1.81 % [facility] RET-He 32.50 28.20 - 36.60 pg [facility] Comment: RET-He is a direct assessment of incorporation of iron into erythrocyte hemoglobin. It provides an indirect measure of the iron available for new erythropoiesis over past 2-4 days. Blood 03/02/2021 11:0 0 AM PAPER MAKER [facility] - 03/02/2021 11:09 AM PAPER MAKER Release to patient->Immediate us Kev Moser MD HEMATOLOGY ORDERABLES Final Result [facility] [address] [place] [address], [place] [phone] * (ABNORMAL) IRON W/ IRON BINDING CAPACITY [place] (03/02/2021 11:00 AM PAPER MAKER) IRON 63 50 - 212 ug/dL [facility] UIBC 186 155 - 355 ug/dL [facility] TIBC 249(L) 261 - 478 ug/dl [facility] % Saturation 25 20 - 50 % [facility] 03/02/2021 11:0 0 AM PAPER MAKER Narrative [facility] - 03/02/2021 11:56 AM PAPER MAKER Release to patient->Immediate us Kev Moser MD LAB SEND OUTS Final Resul t [facility] [address] [place] [address], [place] [phone] * (ABNORMAL) FERRITIN (03/02/2021 11:00 AM PAPER MAKER) Ferritin 398(H) 24 - 336 ng/mL [facility] Blood 03/02/2021 11:0 0 AM PAPER MAKER [facility] - 03/05/2021 2:56 PM PAPER MAKER Release to patient->Immediate us Kev Moser MD CHEMISTRY ORDERABLES Final Result [facility] [address] [place] [address], [place] [phone] * (ABNORMAL) CMP (COMPREHENSIVE METABOLIC PANEL) (03/02/2021 11:00 AM PAPER MAKER) Glucose 89 70 - 105 mg/dL [facility] Blood Urea Nitrogen 47(H) 7 - 25 mg/dL [facility] Creatinine 2.2(H) 0.7 - 1.3 mg/dL [facility] Sodium 138 136 - 145 mEq/L [facility] Potassium 5.0 3.5 - 5.1 mEq/L [facility] Chloride 106 98 - 107 mEq/L [facility] Bicarbonate 23 21 - 31 mEq/L [facility] Total Bilirubin 0.7 0.3 - 1.0 mg/dL [facility] Alk. Phosphatase 104 34 - 104 U/L [facility] Aspartate Aminotransferase 18 13 - 39 U/L [facility] Alanine Aminotransferase 28 7 - 52 U/L [facility] Total Protein 6.5 6.4 - 8.9 g/dL [facility] Albumin 4.3 3.5 - 5.7 g/dL [facility] Calcium 8.8 8.6 - 10.3 mg/dL [facility] Anion Gap 14.0 7.0 - 15.0 mEq/L [facility] Globulin 2.2 2.0 - 3.5 g/dL [facility] EGFR (Non ) 30.0(L) >60.0 ml/min [facility] EGFR () 36.3(L) >60.0 ml/min [facility] Blood 03/02/2021 11:0 0 AM PAPER MAKER Narrative [facility] - 03/02/2021 11:56 AM PAPER MAKER IS THE PATIENT REQUIRED TO BE FASTING FOR 8 HOURS?->No Release to patient->Immediate Kev Moser MD CHEMISTRY ORDERABLES Final Result [facility] [address] [place] [address], * (ABNORMAL) COMPLETE BLOOD COUNT (CBC) WITH DIFF (03/02/2021 11:00 AM PAPER MAKER) WBC 6.7 4.0 - 10.0 10*3/uL [facility] HGB 11.4(L) 13.7 - 17.5 g/dL [facility] HCT 35.1(L) 40.1 - 51.0 % [facility] PLT 173 163 - 369 10*3/uL [facility] MPV 9.7 9.4 - 12.4 fL [facility] RBC 4.08(L) 4.63 - 6.08 10*6/uL [facility] MCV 86 79 - 95 fL [facility] MCH 27.9 25.6 - 32.2 pg [facility] MCHC 32.5 32.2 - 36.5 g/dL [facility] RDW 14.9(H) 11.6 - 14.4 % [facility] Absolute Neutrophil Count 5,122 cells/uL [facility] Absolute Seg Count 5,122 1,440 - 6,600 cells/uL [facility] Absolute Lymph Count 674(L) 760 - 4,000 cells/uL [facility] Absolute Lamb Count 607 160 - 1,200 cells/uL [facility] Absolute Eos Count 337(H) 0 - 300 cells/uL [facility] Segmented Neutrophils 76(H) 36 - 66 % [facility] Lymphocytes 10(L) 19 - 40 % [facility] Monocytes 9 4 - 12 % [facility] Eosinophils 5(H) 0 - 3 % [facility] WBC Estimate Normal [facility] Platelet Estimate Normal [facility] RBC Morphology Normal [facility] Blood 03/02/2021 11:0 0 AM PAPER MAKER Narrative [facility] - 03/02/2021 12:05 PM PAPER MAKER Release to patient->Immediate Kev Moser MD HEMATOLOGY ORDERABLES Final Result [facility] [address] [place] [address], documented in this encounter Visit Diagnoses Diagnosis Myelofibrosis (HCC)- Primary Myelofibrosis Stage 3a chronic kidney disease (HCC) Iron deficiency anemia due to sideropenic dysphagia Iron deficiency anemia, unspecified iron deficiency anemia type Other autoimmune hemolytic anemia (HCC) Myelofibrosis (HCC) Myelofibrosis Stage 3a chronic kidney disease (HCC) Iron deficiency anemia due to sideropenic dysphagia documented in this encounter Additional Health Concerns Assessment Noted Time PHQ-9 Depression Total Score: 0 11/25/19 21 11:34 AM CDT documented as of this encounter Care Teams Wiener Packer Relationship Specialty Start Date End Date Scott Oneill MD PCP - General Internal Medicine 04/29/17 Kev Prince DO Gastroenterology 04/29/17 12/09/22 Tavo Mishra MD [address] [place] [address] [phone] Internal Medicine 04/29/17 Gilmer Barnard MD [address] [place] [address] [phone] Consulting Physician Internal Medicine 08/28/17 4 Kev Moser MD [address] [place] [phone] Consulting Physician Oncology 02/09/20 documented as of this encounter
--- OUTSIDE RECORDS SUMMARY | 2024-04-04 01:31 | XMS_ITS | Encounter Summary ---
Author Organization [facility] Address [address] [place] [address] Phone Care Team Providers Care Fuel Cell Technician Name Role Phone Scott Oneill MD Primary Care Provider Kev Prince DO Unavailable [phone] Tavo Mishra MD Unavailable [phone] Gilmer Barnard MD Unavailable [phone] Kev Moser MD Unavailable [phone] Reason for Visit * Reason Comments Other Eliquis 5mg Sample D ispense Encounter Details Date Type Department Care Team (Latest Contact Info) Description 10/09/2020 10:00 AM CDT Clinical Support [facility] [address] [phone] [facility] Myel[facility]rosis (HCC) (Primary Dx); Other [...] file 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 No / Unsure 10/09/2020 10:09 AM CDT documented as of this encounter Progress Notes * Fritz Pena, RN - 10/09/2020 10:00 AM CDT Eliquis 5mg Sample Dispense Take one tablet by mouth twice daily. 4 boxes given (56 tablets) LOT#: [id number] EXP: 05/2022 documented in this encounter Plan of Treatment Upcoming Encounters Date Type Department Care Team (Late st Contact Info) Description 04/07/2024 11:10 AM TREE CUTTER Lab [facility] [address] [phone] Lab, [facility] 04/07/2024 11:15 AM TREE CUTTER Clinical Support [facility] [address] [phone] Nurse, [facility] 05/12/2024 11:00 AM TREE CUTTER Lab [facility] [address] [phone] Lab, [facility] 05/12/2024 11:15 AM TREE CUTTER Office Visit [facility] [address] [phone] Kev Moser MD [address] [place] [phone] 05/12/2024 11:30 AM TREE CUTTER Clinical Support [facility] [address] [phone] Nurse, [facility] documented as of this encounter Visit Diagnoses Diagnosis Myelofibrosis (HCC)- Primary Myelofibrosis Other autoimmune hemolytic anemia (HCC) documented in this encounter Additional Health Concerns Assessment Noted Time PHQ-9 Depression Total Score: 0 08/12/19 11:41 AM CDT documented as of this encounter Care Teams Fuel Cell Technician Relationship Specialty Start Date End Date Scott Oneill MD PCP - General Internal Medicine 04/29/17 Kev Prince DO Gastroenterology 04/29/17 12/09/22 Tavo Mishra MD [address] [place] [address] Internal Medicine 04/29/17 Gilmer Barnard MD [address] [place] [address] Consulting Physician Internal Medicine 08/28/17 4 Kev Moser MD [address] [place] [phone] Consulting Physician Oncology 02/09/20 documented as of this encounter
--- OUTSIDE RECORDS SUMMARY | 2024-04-04 01:31 | XMS_ITS | Encounter Summary ---
Author Organization [facility] Address [address] [place] [address] Phone Care Team Providers Care Emt Basic Name Role Phone Scott Oneill MD Primary Care Provider Kev Prince DO Unavailable [phone] Tavo Mishra MD Unavailable [phone] Gilmer Barnard MD Unavailable [phone] Encounter Details Date Type Department Care Team (Late st Contact Info) Description 01/03/2020 Telephone [facility] [address] [phone] Kev Moser MD [address] [place] [phone] Social History Tobacco Use Types Packs/Day [...] file 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 No / Unsure 12/14/2019 11:15 AM CDT documented as of this encounter Miscellaneous Notes * Telephone Encounter - Polly Botello, RN - 01/03/2020 11:10 AM CDT Orders extended and faxed to [facility] lab. Patient made aware * Telephone Encounter - Polly Botello RN - 01/03/2020 11:02 AM CDT Images from the original note were not included. Kev Moser MD Howell, Julie C; [facility] Nurse Pool 33 minutes ago (10:28 AM) Yes ok to renew orderyonny * Telephone Encounter - Antonella Lincoln - 01/03/2020 9:09 AM CDT Patient called because he went to [facility] to get his labs done but the orders had . Does he need labs done before his appointment with you on 01/06? documented in this encounter Plan of Treatment Upcoming Encounters Date Type Department Care Team (Late st Contact Info) Description 04/07/2024 11:10 AM SALES FLOOR TEAM MEMBER Lab [facility] [address] [address] Lab, [facility] 04/07/2024 11:15 AM SALES FLOOR TEAM MEMBER Clinical Support [facility] [address] [phone] Nurse, [facility] 05/12/2024 11:00 AM SALES FLOOR TEAM MEMBER Lab [facility] [address] [address] Lab, [facility] 05/12/2024 11:15 AM SALES FLOOR TEAM MEMBER Office Visit [facility] [address] [phone] Kev Moser MD [address] [place] [phone] 05/12/2024 11:30 AM SALES FLOOR TEAM MEMBER Clinical Support [facility] [address] [phone] Nurse, [facility] documented as of this encounter Visit Diagnoses Not on filedocumented in this encounter Additional Health Concerns Assessment Noted Time PHQ-9 Depression Total Score: 0 10/04/19 20 2:45 PM CDT documented as of this encounter Care Teams Emt Basic Relationship Specialty Start Date End Date Scott Oneill MD PCP - General Internal Medicine 04/29/17 Kev Prince DO Gastroenterology 04/29/17 12/09/22 Tavo Mishra MD [address] [place] [address] Internal Medicine 04/29/17 Gilmer Barnard MD [address] [place] [phone] Consulting Physician Internal Medicine 08/28/17 4 documented as of this encounter
--- OUTSIDE RECORDS SUMMARY | 2024-04-04 01:31 | XMS_ITS | Encounter Summary ---
Author Organization [facility] Address [address] [place] [address] Phone Care Team Providers Care Design Chief Name Role Phone Scott Oneill MD Primary Care Provider Kev Prince DO Unavailable [phone] Tavo Mishra MD Unavailable [phone] Gilmer Barnard MD Unavailable [phone] Kev Moser MD Unavailable [phone] Reason for Visit * Reason Comments Other Eliquis Sample Dispe nse Encounter Details Date Type Department Care Team (Latest Contact Info) Description 02/09/2020 3:45 PM ASSOCIATE SOFTWARE DEVELOPER Clinical Support [facility] [address] [phone] Nurse, [facility] Other autoimmune hemolytic anemia (HCC) Social [...] file Legal Sex Male 3:42 PM ASSOCIATE SOFTWARE DEVELOPER Gender Identity Not on file Sexual Orientation Not on file COVID-19 Exposure Response Date Recorded In the last month, have you been in contact with someone who was confirmed or suspected to have Coronavirus / COVID-19? No / Unsure 02/09/2020 8:53 AM ASSOCIATE SOFTWARE DEVELOPER documented as of this encounter Progress Notes * Fritz Pena RN - 02/09/2020 3:45 PM CST Eliquis Samples Given Eliquis 5mg tablets Take one tablet by mouth twice daily. 4 boxes given/56 tablets LOT: [id number] x1 EXP: 07/20 LOT:[id number] x3 EXP: 10/19 CIATE SOFTWARE DEVELOPER documented in this encounter Plan of Treatment Upcoming Encounters Date Type Department Care Team (Late st Contact Info) Description 04/07/2024 11:10 AM ASSOCIATE SOFTWARE DEVELOPER Lab [facility] [address] [address] Lab, [facility] 04/07/2024 11:15 AM ASSOCIATE SOFTWARE DEVELOPER Clinical Support [facility] [address] [address] Nurse, [facility] 05/12/2024 11:00 AM ASSOCIATE SOFTWARE DEVELOPER Lab [facility] [address] [address] Lab, [facility] 05/12/2024 11:15 AM ASSOCIATE SOFTWARE DEVELOPER Office Visit [facility] [address] [address] Kev Msoer MD [address] [place] [phone] 05/12/2024 11:30 AM ASSOCIATE SOFTWARE DEVELOPER Clinical Support [facility] [address] [phone] Nurse, [facility] documented as of this encounter Visit Diagnoses Diagnosis Other autoimmune hemolytic anemia (HCC) documented in this encounter Additional Health Concerns Assessment Noted Time PHQ-9 Depression Total Score: 0 01/07/20 20 11:12 AM CDT documented as of this encounter Care Teams Design Chief Relationship Specialty Start Date End Date Scott Oneill MD PCP - General Internal Medicine 04/29/17 Kev Prince DO Gastroenterology 04/29/17 12/09/22 Tavo Mishra MD [address] [place] [address] Internal Medicine 04/29/17 Gilmer Barnard MD [address] [facility] [address] [place] [address] Consulting Physician Internal Medicine 08/28/17 4 Kev Moser MD [address] [place] [phone] Consulting Physician Oncology 02/09/20 documented as of this encounter
--- OUTSIDE RECORDS SUMMARY | 2024-04-04 01:31 | XMS_ITS | Encounter Summary ---
Author Organization [facility] Address [address] [place] [address] Phone Care Team Providers Care Regroover Name Role Phone Scott Oneill MD Primary Care Provider Kev Prince DO Unavailable [phone] Tavo Mishra MD Unavailable [phone] Gilmer Barnard MD Unavailable [phone] Encounter Details Date Type Department Care Team (Latest Contact Info) Description 08/20/2019 12:00 PM CDT Clinical Support [facility] [address] [phone] Nurse, [facility] Myelofibrosis (HCC) (Primary Dx) Social History Tobacco [...] on file 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 No / Unsure 08/20/2019 11:02 AM CDT documented as of this encounter Progress Notes * Fritz Pena RN - 08/20/2019 12:00 PM CDT Patients came received Eliquis 5mg samples Dispensed: Eliquis 5mg BID #[id number] EXP: 08/2021 documented in this encounter Plan of Treatment Upcoming Encounters Date Type Department Care Team (Late st Contact Info) Description 04/07/2024 11:10 AM RICE MILLING SUPERVISOR Lab [facility] [address] [address] Lab, [facility] 04/07/2024 11:15 AM RICE MILLING SUPERVISOR Clinical Support [facility] [address] [phone] Nurse, [facility] 05/12/2024 11:00 AM RICE MILLING SUPERVISOR Lab [facility] [address] [phone] Lab, [facility] 05/12/2024 11:15 AM RICE MILLING SUPERVISOR Office Visit [facility] [address] [phone] Kev Moser MD [address] [place] [phone] 05/12/2024 11:30 AM RICE MILLING SUPERVISOR Clinical Support [facility] [address] [phone] Nurse, [facility] documented as of this encounter Visit Diagnoses Diagnosis Myelofibrosis (HCC)- Primary Myelofibrosis documented in this encounter Additional Health Concerns Assessment Noted Time PHQ-9 Depression Total Score: 0 07/05/19 20 3:14 PM CDT documented as of this encounter Care Teams Regroover Relationship Specialty Start Date End Date Scott Oneill MD PCP - General Internal Medicine 04/29/17 Kev Prince DO Gastroenterology 04/29/17 12/09/22 Tavo Mishra MD [address] [place] [address] Internal Medicine 04/29/17 Gilmer Barnard MD [address] [place] [address] Consulting Physician Internal Medicine 08/28/17 4 documented as of this encounter
--- OUTSIDE RECORDS SUMMARY | 2024-04-04 01:31 | XMS_ITS | Encounter Summary ---
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 No / Unsure 11/12/2019 9:05 AM CDT documented as of this encounter Plan of Treatment Upcoming Encounters Date Type Department Care Team (Late st Contact Info) Description 04/07/2024 11:10 AM DUSTLESS OPERATOR Lab [facility] [address] [phone] Lab, [facility] 04/07/2024 11:15 AM DUSTLESS OPERATOR Clinical Support [facility] [address] [phone] Nurse, [facility] 05/12/2024 11:00 AM DUSTLESS OPERATOR Lab [facility] [address] [phone] Lab, [facility] 05/12/2024 11:15 AM DUSTLESS OPERATOR Office Visit [facility] [address] [phone] Kev Moser MD [address] [place] [phone] 05/12/2024 11:30 AM DUSTLESS OPERATOR Clinical Support [facility] [address] [phone] Nurse, [facility] documented as of this encounter Visit Diagnoses Not on filedocumented in this encounter Additional Health Concerns Assessment Noted Time PHQ-9 Depression Total Score: 0 10/04/19 20 2:45 PM CDT documented as of this encounter Care Teams Sat Act Instructor Relationship Specialty Start Date End Date Scott Oneill MD PCP - General Internal Medicine 04/29/17 Kev Prince DO Gastroenterology 04/29/17 12/09/22 Tavo Mishra MD [address] [place] [phone] Internal Medicine 04/29/17 Gilmer Barnard MD [address] [place] [phone] Consulting Physician Internal Medicine 08/28/17 4 documented as of this encounter
--- OUTSIDE RECORDS SUMMARY | 2024-04-04 01:31 | XMS_ITS | Encounter Summary ---
Author Organization [facility] Address [address] [place] [address] Phone Care Team Providers Care User Interface Engineer Name Role Phone Scott Oneill MD Primary Care Provider Kev Prince DO Unavailable [phone] Tavo Mishra MD Unavailable [phone] Gilmer Barnard MD Unavailable [phone] Kev Moser MD Unavailable [phone] Reason for Visit * Reason Comments Follow-up Encounter Details Date Type Department Care Team (Late st Contact Info) Description 05/12/2020 11:30 AM BRICK GRADER Office Visit [facility] [address] [phone] Cee Rios, ASSOCIATE ACCOUNTANT, BRIM SHAPER [address] [place] [phone] Myelofibrosis (HCC) (Primary Dx); Stage 3a chronic [...] on file Legal Sex Male 3:42 PM BRICK GRADER Gender Identity Not on file Sexual Orientation Not on file COVID-19 Exposure Response Date Recorded In the last month, have you been in contact with someone who was confirmed or suspected to have Coronavirus / COVID-19? No / Unsure 05/12/2020 10:44 AM BRICK GRADER documented as of this encounter Last Filed Vital Signs Vital Sign Reading Time Taken Comments Blood Pressure 152/80 05/12/2020 10:49 AM BRICK GRADER Pulse 64 05/12/2020 10:49 AM BRICK GRADER Temperature 36.3 ??C (97.3 ??F) 05/12/2020 10:[address] Respiratory Rate 18 05/12/2020 10:49 AM BRICK GRADER Oxygen Saturation 97% 05/12/2020 10:49 AM BRICK GRADER Inhaled Oxygen Concentration - - Weight 96.2 kg (212 lb) 05/12/2020 10:49 AM BRICK GRADER Height 165.1 cm (5' 5 ) 05/12/2020 10:49 AM BRICK GRADER Body Mass Index 35.28 05/12/2020 10:49 AM BRICK GRADER documented in this encounter Progress Notes * Cee Dc APN, CNP - 05/12/2020 11:30 AM CST Patient: Britton Nielsen Age: 65 y.o. : 1955 Encounter Dept: [facility] Encounter Date: 05/12/2020 Care Team: Current Providers PCP: Scott Oneill MD Care Team Provider: Kev Prince DO Care Team Provider: Tavo Mishra MD Care Team Provider: Gilmer Barnard MD Care Team Provider: Kev Moser MD Encounter Provider: Cee Dc APN, CNP Referring Provider: not found Nurse Practitioner: Cee Dc APN, KEYANA HISTORY OF PRESENT ILLNESS: Mr. Britton Nielsen returns to the clinic for followup. Since his last visit, Britton states he has been doing fairly well. He continues following with Cardiology. He is also seeing GI at the [facility]. He states he may be having a colonoscopy and EGD done here inthe near future. Otherwise, he denies any fevers, chills, shortness of breath, chest pain, abdominal pain, or bleeding. DIAGNOSIS: 1. Glomerulonephritis, sclerosing (renal biopsy 04/01/17). 2. Significant anemia with bleeding ulcer, chronic kidney disease, and patient is on Cytoxan with iron deficiency. 3. Recurrent bleeding ulcers. 4. Patient had a positive BRIANNA at an outside hospital. 5. Bilateral pulmonary emboli, bilateral lower extremity DVT (10/2017). PAST TREATMENT: 1. Gastroduodenal artery embolization at [facility] 05/2017. 2. Cytoxan 100 mg daily. 3. Bone marrow biopsy 11/03/17 with normocellular marrow and maturating trilineage hematopoiesis with minimal reticulin fibrosis. Normal karyotype and NGS study. CURRENT TREATMENT: EPO 40,000 units q.4 to 8 weeks (poor response, stopped on 01/2019). 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 Intermittent IV iron. Eliquis b.i.d. TREATMENT GUIDELINES: Consistent with NCCN guidelines. [...] pulmonary emboli, bilateral lower extremity DVT (10/2017). PLAN: At this time, I discussed with Britton that clinically he continues doing well. His most recent laboratory evaluation showed a white blood cell count of 6.0, hemoglobin of 10.3 and platelet count of 143,000. His creatinine is up just slightly from 2.3 to 2.5. Iron saturation was 21% and his ferritinwas 342. Continue Eliquis. He has been getting samples through our office. Bone marrow biopsy in the past has been negative. We will continue to hold his erythropoietin. His hemoglobin is holding stable. It is okay for the patient to have colonoscopy and EGD. He will need to hold Eliquis for two days prior to the procedure. We will fax over directions to his GI doctor. I will have the patient return to clinic for follow up with office visit and labs in three months. I encouraged the patient to call with any questions, problems, or concerns that he may have. Dr. Moser was present in the clinic. TIME SPENT: REVIEW OF SYSTEMS: See HPI; [...] results shown below reviewed. Kev Moser MD, FACP Cee Dc APN, BRIM SHAPER/dsp Vitals: Vitals: 05/12/20 1049 BP: 152/80 BP Location: Right Arm BP Position: Sitting BP Cuff Size: Regular Pulse: 64 Resp: 18 Temp: 97.3 ??F (36.3 ??C) TempSrc: Temporal SpO2: 97% Weight: 212 lb (96.2 kg) Height: 5' 5 (1.651 m) Body surface area is 2.1 meters squared. Body mass index is 35.28 kg/m??. Allergies: No Known Allergies PMH/SgH/FH/SH: Past medical, surgical, family and social histories were reviewed at this visit. Past Medical History Positives Diagnosis Date ??? Arthritis ??? Bleeding ulcer ??? Carcinoma (HCC) skin cancer of lip ??? Hypertension ??? Squamous cell cancer of lip Past Surgical History: Procedure Laterality Date ??? BIOPSY OF SKIN LESION lip ??? EGD ??? KIDNEY BIOPSY ??? ULCER,SUTURE [...] Types: Cigarettes Quit date: 05/23/2011 Years since quittin.9 ??? Smokeless tobacco: Never Used Substance and Sexual Activity ??? Alcohol use: [...] Current Medications: Outpatient Encounter Medications as of 05/12/2020 Medication Sig Dispense Refill ??? apixaban (Eliquis) 5 MG Tablet Take 1 Tablet by mouth 2 times daily. Indications: Prevention ofUnwanted Clot in Veins 56 Tablet ??? atorvastatin (LIPITOR) 20 MG Tablet Take 20 mg by mouth daily. ??? Calcium Carb-Cholecalciferol (CALCIUM 600 + D PO) Take by mouth 2 times daily. ??? cyanocobalamin 1000 MCG Tablet Take 1 tablet by mouth daily 30 Tab 0 ??? ergocalciferol (VITAMIN D) 45546 UNIT Capsule Take 50,000 Units by mouth [...] facility-administered encounter medications on file as of 05/12/2020. Labs: No visits with results within 7 Day(s) from this visit. Latest known visit with results is: Lab Requisition on 04/06/2020 Component Date Value Ref Range Status ??? IDPH REDITUS SARS-COV-2 RNA 04/06/2020 NOT DETECTED Final Cosigned by Kev Moser MD at 06/05/2020 9:05 AM BRICK GRADER K GRADER K GRADER K GRADER documented in this encounter Plan of Treatment Upcoming Encounters Date Type Department Care Team (Late st Contact Info) Description 04/07/2024 11:10 AM BRICK GRADER Lab [facility] [address] [address] Lab, [facility] 04/07/2024 11:15 AM BRICK GRADER Clinical Support [facility] [address] [phone] Nurse, [facility] 05/12/2024 11:00 AM BRICK GRADER Lab [facility] [address] [address] Lab, [facility] 05/12/2024 11:15 AM BRICK GRADER Office Visit [facility] [address] [phone] Kev Moser MD [address] [place] [address] 05/12/2024 11:30 AM BRICK GRADER Clinical Support [facility] [place] [address] [place] [address] Nurse, [facility] documented as of this encounter Visit Diagnoses Diagnosis Myelofibrosis (HCC)- Primary Myelofibrosis Stage 3a chronic kidney disease (HCC) Iron deficiency anemia due to sideropenic dysphagia documented in this encounter Additional Health Concerns Assessment Noted Time PHQ-9 Depression Total Score: 0 05/12/19 21 10:54 AM BRICK GRADER documented as of this encounter Care Teams User Interface Engineer Relationship Specialty Start Date End Date Scott Oneill MD PCP - General Internal Medicine 04/29/17 Kev Prince DO Gastroenterology 04/29/17 12/09/22 Tavo Mishra MD [address] [phone] Internal Medicine 04/29/17 Gilmer Barnard MD [address] [address] Consulting Physician Internal Medicine 08/28/17 4 Kev Moser MD [address] [place] [phone] Consulting Physician Oncology 02/09/20 documented as of this encounter
--- OUTSIDE RECORDS SUMMARY | 2024-04-04 01:31 | XMS_ITS | Encounter Summary ---
Author Organization [facility] Address [address] [place] [address] Phone Care Team Providers Care Tar Distributor Operator Name Role Phone Scott Oneill MD Primary Care Provider [phone] Kev Prince DO Unavailable [phone] Tavo Mishra MD Unavailable [phone] Gilmer Barnard MD Unavailable [phone] Reason for Visit * Reason Comments Other SAMPLE OF MICHELLE SANDERS Encounter Details Date Type Department Care Team (Latest Contact Info) Description 11/12/2019 9:50 AM CDT Clinical Support [facility] [address] [address] Nurse, [facility] Other autoimmune hemolytic anemias (HCC) Social History [...] on file Legal Sex Male 3:42 PM RADAR TECHNICIAN Gender Identity Not on file Sexual Orientation Not on file COVID-19 Exposure Response Date Recorded In the last month, have you been in contact with someone who was confirmed or suspected to have Coronavirus / COVID-19? No / Unsure 11/12/2019 9:05 AM CDT documented as of this encounter Progress Notes * Fritz Pena, RN - 11/12/2019 9:50 AM CDT SAMPLE DISPENSE: ELIQUIS 5MG Amount: Gave 4 boxes =56 tablets Take one tablet BID. LOT#: [id number] EXP: 07/20 documented in this encounter Plan of Treatment Upcoming Encounters Date Type Department Care Team (Late st Contact Info) Description 04/07/2024 11:10 AM RADAR TECHNICIAN Lab [facility] [address] [address] Lab, [facility] 04/07/2024 11:15 AM RADAR TECHNICIAN Clinical Support [facility] [address] [phone] Nurse, [facility] 05/12/2024 11:00 AM RADAR TECHNICIAN Lab [facility] [address] [phone] Lab, [facility] 05/12/2024 11:15 AM RADAR TECHNICIAN Office Visit [facility] [address] [phone] Kev Moser MD [address] [place] [phone] 05/12/2024 11:30 AM RADAR TECHNICIAN Clinical Support [facility] [address] [phone] Nurse, [facility] documented as of this encounter Visit Diagnoses Diagnosis Other autoimmune hemolytic anemias documented in this encounter Additional Health Concerns Assessment Noted Time PHQ-9 Depression Total Score: 0 10/04/19 20 2:45 PM CDT documented as of this encounter Care Teams Tar Distributor Operator Relationship Specialty Start Date End Date Scott Oneill MD PCP - General Internal Medicine 04/29/17 Kev Prince DO Gastroenterology 04/29/17 12/09/22 Tavo Mishra MD [address] [place] [address] Internal Medicine 04/29/17 Gilmer Barnard MD [address] [place] [address] Consulting Physician Internal Medicine 08/28/17 4 documented as of this encounter
--- OUTSIDE RECORDS SUMMARY | 2024-04-04 01:31 | XMS_ITS | Encounter Summary ---
Author Organization [facility] Address [address] [place] [address] Phone Care Team Providers Care Timber Killer Name Role Phone Scott Oneill MD Primary Care Provider [phone] Kev Prince DO Unavailable [phone] Tavo Mishra MD Unavailable [phone] Gilmer Barnard MD Unavailable [phone] Encounter Details Date Type Department Care Team (Late st Contact Info) Description 12/14/2019 Refill [facility] [address] [address] Kev Moser MD [address] [place] [phone] Social History Tobacco Use Types Packs/Day [...] on file Legal Sex Male 3:42 PM LOGISTICS PROJECT MANAGER Gender Identity Not on file Sexual Orientation Not on file documented as of this encounter Miscellaneous Notes * Telephone Encounter - Fritz Pena RN - 12/14/2019 10:46 AM CDT Called patient he is aware that his samples of Eliquis are ready for pickup. * Telephone Encounter - Kev Moser MD - 12/14/2019 9:11 AM CDT Ok to fill * Telephone Encounter - Zahida Montes RN - 12/14/2019 8:45 AM CDT Pt requesting refills of Eliquis samples. Ok to refill? documented in this encounter Plan of Treatment Upcoming Encounters Date Type Department Care Team (Late st Contact Info) Description 04/07/2024 11:10 AM LOGISTICS PROJECT MANAGER Lab [facility] [address] [address] Lab, [facility] 04/07/2024 11:15 AM LOGISTICS PROJECT MANAGER Clinical Support [facility] [address] [phone] Nurse, [facility] 05/12/2024 11:00 AM LOGISTICS PROJECT MANAGER Lab [facility] [address] [address] Lab, [facility] 05/12/2024 11:15 AM LOGISTICS PROJECT MANAGER Office Visit [facility] [address] [address] Kev Moser MD [address] [place] [phone] 05/12/2024 11:30 AM LOGISTICS PROJECT MANAGER Clinical Support [facility] [address] [phone] Nurse, [facility] documented as of this encounter Visit Diagnoses Diagnosis Other autoimmune hemolytic anemias documented in this encounter Additional Health Concerns Assessment Noted Time PHQ-9 Depression Total Score: 0 10/04/19 20 2:45 PM CDT documented as of this encounter Care Teams Timber Killer Relationship Specialty Start Date End Date Scott Oneill MD PCP - General Internal Medicine 04/29/17 Kev Prince DO Gastroenterology 04/29/17 12/09/22 Tavo Mishra MD [address] [place] [address] Internal Medicine 04/29/17 Gilmer Barnard MD [address] [place] [address] Consulting Physician Internal Medicine 08/28/17 4 documented as of this encounter
--- OUTSIDE RECORDS SUMMARY | 2024-04-04 01:31 | XMS_ITS | Encounter Summary ---
Author Organization [facility] Address [address] [place] [address] Phone Care Team Providers Care Commercial Sales Specialist Name Role Phone Scott Oneill MD Primary Care Provider Kev Prince DO Unavailable [phone] Tavo Mishra MD Unavailable [phone] Gilmer Barnard MD Unavailable [phone] Reason for Visit * Reason Onset Date Comments Medication Refill 09/16/2019 Encounter Details Date Type Department Care Team (Late st Contact Info) Description 09/16/2019 Refill [facility] [address] [place] [address] Kev Moser MD [address] [place] [phone] Medication Refill Social History Tobacco Use [...] on file Legal Sex Male 3:42 PM TEST DESK TROUBLE LOCATOR Gender Identity Not on file Sexual Orientation Not on file COVID-19 Exposure Response Date Recorded In the last month, have you been in contact with someone who was confirmed or suspected to have Coronavirus / COVID-19? No / Unsure 09/16/2019 9:13 AM CDT documented as of this encounter Miscellaneous Notes * Telephone Encounter - Fritz Pena, RN - 09/16/2019 10:01 AM CDT Samples given out per Dr. Moser's last office note 07/05/2019 give samples as needed. documented in this encounter Plan of Treatment Upcoming Encounters Date Type Department Care Team (Late st Contact Info) Description 04/07/2024 11:10 AM TEST DESK TROUBLE LOCATOR Lab [facility] [address] [address] Lab, [facility] 04/07/2024 11:15 AM TEST DESK TROUBLE LOCATOR Clinical Support [facility] [address] [address] Nurse, [facility] 05/12/2024 11:00 AM TEST DESK TROUBLE LOCATOR Lab [facility] [address] [address] Lab, [facility] 05/12/2024 11:15 AM TEST DESK TROUBLE LOCATOR Office Visit [facility] [address] [address] Kev Moser MD [address] [place] [phone] 05/12/2024 11:30 AM TEST DESK TROUBLE LOCATOR Clinical Support [facility] [address] [address] Nurse, [facility] documented as of this encounter Visit Diagnoses Diagnosis Other autoimmune hemolytic anemias documented in this encounter Additional Health Concerns Assessment Noted Time PHQ-9 Depression Total Score: 0 07/05/19 20 3:14 PM CDT documented as of this encounter Care Teams Commercial Sales Specialist Relationship Specialty Start Date End Date Scott Oneill MD PCP - General Internal Medicine 04/29/17 Kev Prince DO Gastroenterology 04/29/17 12/09/22 Tavo Mishra MD [address] [place] [address] Internal Medicine 04/29/17 Gilmer Barnard MD [address] [place] [address] Consulting Physician Internal Medicine 08/28/17 4 documented as of this encounter
--- OUTSIDE RECORDS SUMMARY | 2024-04-04 01:31 | XMS_ITS | Encounter Summary ---
Author Organization [employer] Care Team Providers Care Thread Grinder Tool Name Role Phone Scott Oneill MD Primary Care Provider Kev Prince DO Unavailable [phone] Tavo Mishra MD Unavailable [phone] Gilmer Barnard MD Unavailable [phone] Encounter Details Date Type Department Care Team (Latest Contact Info) Description 12/14/2019 Travel Social History Tobacco Use Types Packs/Day [...] on file Legal Sex Male 3:42 PM ELECTRIC MILKERS INSTALLER Gender Identity Not on file Sexual Orientation [...] st Contact Info) Description 04/07/2024 11:10 AM ELECTRIC MILKERS INSTALLER Lab [facility] [address] [phone] Lab, [facility] 04/07/2024 11:15 AM ELECTRIC MILKERS INSTALLER Clinical Support [facility] [address] [phone] Nurse, [facility]c [facility] 05/12/2024 11:00 AM ELECTRIC MILKERS INSTALLER Lab [facility] [address] [phone] Lab, [facility] 05/12/2024 11:15 AM ELECTRIC MILKERS INSTALLER Office Visit [facility] [address] [phone] Kev Moser MD [address] [place] [phone] 05/12/2024 11:30 AM ELECTRIC MILKERS INSTALLER Clinical Support [facility] [address] [phone] Nurse, [facility] documented as of this encounter Visit Diagnoses Not on filedocumented in this encounter Additional Health Concerns Assessment Noted Time PHQ-9 Depression Total Score: 0 10/04/19 20 2:45 PM CDT documented as of this encounter Care Teams Thread Grinder Tool Relationship Specialty Start Date End Date Scott Oneill MD PCP - General Internal Medicine 04/29/17 Kev Prince DO Gastroenterology 04/29/17 12/09/22 Tavo Mishra MD [address] [place] [phone] Internal Medicine 04/29/17 Gilmer Barnard MD [address] [place] [address] Consulting Physician Internal Medicine 08/28/17 4 documented as of this encounter
--- OUTSIDE RECORDS SUMMARY | 2024-04-04 01:31 | XMS_ITS | Encounter Summary ---
Author Organization [employer] Care Team Providers Care Data Entry Machine Operator Name Role Phone Scott Oneill MD Primary Care Provider Kev Prince DO Unavailable [phone] Tavo Mishra MD Unavailable [phone] Gilmer Barnard MD Unavailable [phone] Encounter Details Date Type Department Care Team (Latest Contact Info) Description 10/04/2019 Travel Social History Tobacco Use Types Packs/Day [...] on file Legal Sex Male 3:42 PM CHOCOLATE PACKER Gender Identity Not on file Sexual Orientation [...] st Contact Info) Description 04/07/2024 11:10 AM CHOCOLATE PACKER Lab [facility] [address] [phone] Lab, [facility] 04/07/2024 11:15 AM CHOCOLATE PACKER Clinical Support [facility] [address] [phone] Nurse, [facility] 05/12/2024 11:00 AM CHOCOLATE PACKER Lab [facility] [address] [phone] Lab, [facility] 05/12/2024 11:15 AM CHOCOLATE PACKER Office Visit [facility] [address] [phone] Kev Moser MD [address] [place] [phone] 05/12/2024 11:30 AM CHOCOLATE PACKER Clinical Support [facility] [address] [phone] Nurse, [facility] documented as of this encounter Visit Diagnoses Not on filedocumented in this encounter Additional Health Concerns Assessment Noted Time PHQ-9 Depression Total Score: 0 10/04/19 20 2:45 PM CDT documented as of this encounter Care Teams Data Entry Machine Operator Relationship Specialty Start Date End Date Scott Oneill MD PCP - General Internal Medicine 04/29/17 Kev Prince DO Gastroenterology 04/29/17 12/09/22 Tavo Mishra MD [address] [place] [phone] Internal Medicine 04/29/17 Gilmer Barnard MD [address] [place] [address] Consulting Physician Internal Medicine 08/28/17 4 documented as of this encounter
--- OUTSIDE RECORDS SUMMARY | 2024-04-04 01:31 | XMS_ITS | Encounter Summary ---
Author Organization [facility] Address [address] [place] [address] Phone Care Team Providers Care Mid Teacher Name Role Phone Scott Oneill MD Primary Care Provider [phone] Kev Prince DO Unavailable [phone] Tavo Mishra MD Unavailable [phone] Gilmer Barnard MD Unavailable [phone] Kev Moser MD Unavailable [phone] Reason for Visit * Reason Comments Other Eliquis sample dispe nse Encounter Details Date Type Department Care Team (Latest Contact Info) Description 07/10/2020 3:30 PM CDT Clinical Support [facility] [address] [phone] Nurse, [facility] Myelofibrosis (HCC) (Primary Dx) Social History [...] file Legal Sex Male 3:42 PM PIN MACHINE TENDER Gender Identity Not on file Sexual Orientation Not on file COVID-19 Exposure Response Date Recorded In the last month, have you been in contact with someone who was confirmed or suspected to have Coronavirus / COVID-19? No / Unsure 07/10/2020 12:37 PM CDT documented as of this encounter Progress Notes * Fritz Pena, RN - 07/10/2020 3:30 PM CDT Eliquis 5mg tablet Take one tablet by mouth twice daily. 4 BOXES GIVEN/56 TABLETS LOT#: [id number] EXP: May 2022 documented in this encounter Plan of Treatment Upcoming Encounters Date Type Department Care Team (Late st Contact Info) Description 04/07/2024 11:10 AM PIN MACHINE TENDER Lab [facility] [address] [address] Lab, [facility] 04/07/2024 11:15 AM PIN MACHINE TENDER Clinical Support [facility] [address] [phone] Nurse, [facility] 05/12/2024 11:00 AM PIN MACHINE TENDER Lab [facility] [address] [address] Lab, [facility] 05/12/2024 11:15 AM PIN MACHINE TENDER Office Visit [facility] [address] [phone] Kev Moser MD [address] [place] [phone] 05/12/2024 11:30 AM PIN MACHINE TENDER Clinical Support [facility] [address] [phone] Nurse, [facility] documented as of this encounter Visit Diagnoses Diagnosis Myelofibrosis (HCC)- Primary Myelofibrosis documented in this encounter Additional Health Concerns Assessment Noted Time PHQ-9 Depression Total Score: 0 05/12/19 21 10:54 AM PIN MACHINE TENDER documented as of this encounter Care Teams Mid Teacher Relationship Specialty Start Date End Date Scott Oneill MD PCP - General Internal Medicine 04/29/17 Kev Prince DO Gastroenterology 04/29/17 12/09/22 Tavo Mishra MD [address] [facility] [address] [place] [address] [phone] Internal Medicine 04/29/17 Gilmer Barnard MD [address] [address] Consulting Physician Internal Medicine 08/28/17 4 Kev Moser MD [address] [place] [phone] Consulting Physician Oncology 02/09/20 documented as of this encounter
--- OUTSIDE RECORDS SUMMARY | 2024-04-04 01:31 | XMS_ITS | Encounter Summary ---
Author Organization [email or web address] Care Team Providers Care Turbine Technician Name Role Phone Scott Oneill MD Primary Care Provider Kev Prince DO Unavailable [phone] Tavo Mishra MD Unavailable [phone] Gilmer Barnard MD Unavailable [phone] Encounter Details Date Type Department Care Team (Latest Contact Info) Description 08/20/2019 Travel Social History Tobacco Use Types Packs/Day [...] on file Legal Sex Male 3:42 PM RECORDS MANAGEMENT ENGINEER Gender Identity Not on file Sexual [...] st Contact Info) Description 04/07/2024 11:10 AM RECORDS MANAGEMENT ENGINEER Lab [facility] [address] [phone] Lab, [facility] 04/07/2024 11:15 AM RECORDS MANAGEMENT ENGINEER Clinical Support [facility] [address] [phone] Nurse, [facility] 05/12/2024 11:00 AM RECORDS MANAGEMENT ENGINEER Lab [facility] [address] [phone] Lab, [facility] 05/12/2024 11:15 AM RECORDS MANAGEMENT ENGINEER Office Visit [facility] [address] [phone] Kev Moser MD [address] [place] [phone] 05/12/2024 11:30 AM RECORDS MANAGEMENT ENGINEER Clinical Support [facility] [address] [phone] Nurse, [facility] documented as of this encounter Visit Diagnoses Not on filedocumented in this encounter Additional Health Concerns Assessment Noted Time PHQ-9 Depression Total Score: 0 07/05/19 20 3:14 PM CDT documented as of this encounter Care Teams Turbine Technician Relationship Specialty Start Date End Date Scott Oneill MD PCP - General Internal Medicine 04/29/17 eKv Prince DO Gastroenterology 04/29/17 12/09/22 Tavo Mishra MD [address] [place] [phone] Internal Medicine 04/29/17 Gilmer Barnard MD [address] [place] [address] Consulting Physician Internal Medicine 08/28/17 4 documented as of this encounter
--- OUTSIDE RECORDS SUMMARY | 2024-04-04 01:31 | XMS_ITS | Encounter Summary ---
Author Organization [facility] Address [address] [place] [address] Phone Care Team Providers Care Baseball Sewer Hand Name Role Phone Scott Oneill MD Primary Care Provider Kev Prince DO Unavailable [phone] Tavo Mishra MD Unavailable [phone] Gilmer Barnard MD Unavailable [phone] Reason for Visit * Reason Comments Follow-up Encounter Details Date Type Department Care Team (Late st Contact Info) Description 10/04/2019 3:00 PM CDT [facility] [address] [phone] Kev Moser MD [address] [place] [phone] Other autoimmune hemolytic anemias (HCC) (Primary Dx); Myelofibrosis (HCC); Iron deficiency anemia due to sideropenic dysphagia; Iron deficiency anemia, unspecified iron deficiency anemia type; Stage 3 chronic kidney disease (HCC); Glomerulonephritis Social History Tobacco Use Types Packs/Day [...] on file 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 No / Unsure 10/04/2019 2:36 PM CDT documented as of this encounter Last Filed Vital Signs Vital Sign Reading Time Taken Comments Blood Pressure 152/74 10/04/2019 2:42 PM CDT Pulse 64 10/04/2019 2:42 PM CDT Temperature 36.3 ??C (97.3 ??F) 10/04/2019 2:42 PM CD T Respiratory Rate 18 10/04/2019 2:42 PM CDT Oxygen Saturation 94% 10/04/2019 2:42 PM CDT Inhaled Oxygen Concentration - - Weight 101.6 kg (224 lb) 10/04/2019 2:42 PM CDT Height 165.1 cm (5' 5 ) 10/04/2019 2:42 PM CDT Body Mass Index 37.28 10/04/2019 2:42 PM CDT documented in this encounter Progress Notes * Kev Moser MD - 10/04/2019 3:00 PM CDT Patient: Britton Nielsen Age: 64 y.o. : 1955 Encounter Dept: [facility] [place] Encounter Date: 10/04/2019 Care Team: Current Providers PCP: Scott Oneill MD Care Team Provider: Kev Prince DO Care Team Provider: Tavo Mishra MD Care Team Provider: Gilmer Barnard MD Encounter Provider: Kev Moser MD Referring Provider: not found Consulting Physician: Kev Moser MD HISTORY OF PRESENT ILLNESS: Britton Nielsen returns. He is doing stable. No major changes. DIAGNOSIS: 1. Glomerulonephritis, sclerosing (renal [...] Normal karyotype and NGS study. CURRENT TREATMENT: 1. EPO 40,000 units q.4 to 8 weeks (poor response, stopped on 01/2019). 2. Imuran 50 mg daily. 3. Off prednisone per his display specialist. 4. Intermittent IV iron. 5. Eliquis b.i.d. TREATMENT GUIDELINES: Consistent with NCCN [...] emboli, bilateral lower extremity DVT (10/2017). PLAN: 1. Continue Eliquis. Gave refill today. 2. He is status post acyclovir for seven days for shingles outbreak. He seems improved. 3. Bone marrow biopsy negative in the past. 4. We will continue to hold his EPO. His hemoglobin is holding stable. He did not really feel symptomatically that much better. 5. Followup in three to four months. REVIEW OF SYSTEMS: See HPI; otherwise, 12-point review of systems is negative. PHYSICAL EXAM: GENERAL: Patient is awake, alert and oriented x3. HEENT: Normocephalic, atraumatic, PERRLA, [...] reviewed. Kev Moser MD, FACP/rmd Vitals: Vitals: 10/04/19 1442 BP: 152/74 BP Location: Right Arm BP Position: Sitting BP Cuff Size: Regular Pulse: 64 Resp: 18 Temp: 97.3 ??F (36.3 ??C) TempSrc: Temporal SpO2: 94% Weight: 224 lb (101.6 kg) Height: 5' 5 (1.651 m) Body surface area is 2.16 meters squared. Body mass index is 37.28 kg/m??. Allergies: No Known Allergies PMH/SgH/FH/SH: Past [...] Years: 30.00 Pack years: 30.00 Types: Cigarettes Last attempt to quit: 05/23/2011 Years since quittin.3 ??? Smokeless tobacco: Never Used Substance and Sexual Activity ??? Alcohol use: No ??? Drug use: No Oncology History: No history exists. Cancer Staging: Cancer Staging No matching staging information was found for the patient. Cumulative dose Purpose/Goal Comments Lifetime Dose Tracking No doses have been documented on this patient for the following tracked chemicals: Doxorubicin, Epirubicin, Idarubicin, Daunorubicin, Mitoxantrone, Bleomycin Current Medications: Outpatient Encounter Medications as of 10/04/2019 Medication Sig Dispense Refill ??? apixaban (ELIQUIS) 5 MG Tablet Take 1 Tab by mouth 2 times daily. Indications: Prevention of Unwanted Clot in Veins 56 Tab ??? atorvastatin (LIPITOR) 20 MG Tablet Take 20 mg by mouth daily. ??? Calcium Carb-Cholecalciferol (CALCIUM 600 + D PO) Take by mouth 2 times daily. ??? cyanocobalamin 1000 MCG Tablet Take 1 tablet by mouth daily 30 Tab 0 ??? ergocalciferol (VITAMIN D) 99152 UNIT Capsule Take 50,000 Units by mouth once a week. ??? ferrous sulfate 325 (65 Fe) MG Tablet Take 1 Tab by mouth daily. ??? [DISCONTINUED] fluticasone (FLONASE) 50 MCG/ACT Suspension ??? furosemide (LASIX) 40 MG Tablet Take [...] traMADol (ULTRAM) 50 MG Tablet 0 ??? [DISCONTINUED] valACYclovir (VALTREX) 1 GM Tablet Take 1 Tab by mouth 3 times daily. 21 Tab 0 No facility-administered encounter medications on file as of 10/04/2019. Labs: No visits with results within 7 Day(s) from this visit. Latest known visit with results is: Clinical Support on 08/19/2018 Component Date Value Ref Range Status ??? WBC 08/19/2018 6.4 4.0 - 10.0 10*3/uL Final ??? HGB 08/19/2018 8.8* 13.7 - 17.5 g/dL Final ??? HCT 08/19/2018 29.7* 40.1 - 51.0 % Final ??? PLT 08/19/2018 173 163 - 369 10*3/uL Final ??? MPV 08/19/2018 10.9 9.4 - 12.4 fL Final ??? RBC 08/19/2018 2.92* 4.63 - 6.08 10*6/uL Final ??? MCV 08/19/2018 102* 79 - 95 fL Final ??? MCH 08/19/2018 30.1 25.6 - 32.2 pg Final ??? MCHC 08/19/2018 29.6* 32.2 - 36.5 g/dL Final ??? RDW 08/19/2018 14.6* 11.6 - 14.4 % Final ??? Absolute Neutrophil Count 08/19/2018 5,623 cells/uL Final ??? Absolute Seg Count 08/19/2018 5,623 1,440 - 6,600 cells/uL Final ??? Absolute Lymph Count 08/19/2018 447* 760 - 4,000 cells/uL Final ??? Absolute Comanche Count 08/19/2018 256 160 - 1,200 cells/uL Final ??? Absolute Eos Count 08/19/2018 64 0 - 300 cells/uL Final ??? Segmented Neutrophils 08/19/2018 88* 36 - 66 % Final ??? Lymphocytes 08/19/2018 7* 19 - 40 % Final ??? Monocytes 08/19/2018 4 4 - 12 % Final ??? Eosinophils 08/19/2018 1 0 - 3 % Final ??? WBC Estimate 08/19/2018 Normal Final ??? Platelet Estimate 08/19/2018 Normal Final ??? RBC Morphology 08/19/2018 Abnormal Final ??? Macrocytosis 08/19/2018 1+ Final ??? Anisocytosis 08/19/2018 1+ Final ??? Poikilocytosis 08/19/2018 1+ Final documented in this encounter Plan of Treatment Upcoming Encounters Date Type Department Care Team (Late st Contact Info) Description 04/07/2024 11:10 AM WAFER FABRICATION OPERATOR Lab [facility] [address] [phone] Lab, [facility] 04/07/2024 11:15 AM WAFER FABRICATION OPERATOR Clinical Support [facility] [address] [phone] Nurse, [facility] 05/12/2024 11:00 AM WAFER FABRICATION OPERATOR Lab [facility] [address] [phone] Lab, [facility] 05/12/2024 11:15 AM WAFER FABRICATION OPERATOR Office Visit [facility] [address] [phone] Kev Moser MD [address] [place] [phone] 05/12/2024 11:30 AM WAFER FABRICATION OPERATOR Clinical Support [facility] [address] [phone] Nurse, [facility] documented as of this encounter Results * (ABNORMAL) CMP (COMPREHENSIVE METABOLIC PANEL) (10/04/2019 3:30 PM CDT) Glucose 70 70 - 105 mg/dL [facility] [employer] [facility] [employer] [employer] Blood Urea Nitrogen 46(H) 7 - 25 mg/dL [facility] Creatinine 2.5(H) 0.7 - 1.3 mg/dL [facility] Sodium 140 136 - 145 mEq/L [facility] Potassium 4.3 3.5 - 5.1 mEq/L [facility] Chloride 106 98 - 107 mEq/L [facility] Bicarbonate 24 21 - 31 mEq/L [facility] Total Bilirubin 0.5 0.3 - 1.0 mg/dL [facility] Alk. Phosphatase 78 34 - 104 U/L [facility] Aspartate Aminotransferase 12(L) 13 - 39 U/L [facility] Alanine Aminotransferase 12 7 - 52 U/L [facility] Total Protein 6.4 6.4 - 8.9 g/dL [facility] Albumin 4.2 3.5 - 5.7 g/dL [facility] Calcium 9.4 8.6 - 10.2 mg/dL [facility] Anion Gap 14.3 7.0 - 15.0 mEq/L [facility] Globulin 2.2 2.0 - 3.5 g/dL [facility] EGFR (Non ) 26.0(L) >60.0 ml/min [facility] EGFR () 31.5(L) >60.0 ml/min [facility] Blood 10/04/2019 3:30 PM CDT Kev Moser MD CHEMISTRY ORDERABLES Final Result [facility] [address] [place] [address], * (ABNORMAL) COMPLETE BLOOD COUNT (CBC) WITH DIFF (10/04/2019 3:30 PM CDT) WBC 4.7 4.0 - 10.0 10*3/uL [facility] HGB 9.2(L) 13.7 - 17.5 g/dL [facility] HCT 28.9(L) 40.1 - 51.0 % [facility] PLT 144(L) 163 - 369 10*3/uL [facility] MPV 8.8(L) 9.4 - 12.4 fL [facility] RBC 3.25(L) 4.63 - 6.08 10*6/uL [facility] MCV 89 79 - 95 fL [facility] MCH 28.3 25.6 - 32.2 pg [facility] MCHC 31.8(L) 32.2 - 36.5 g/dL [facility] RDW 16.1(H) 11.6 - 14.4 % [facility] Absolute Neutrophil Count 3,555 cells/uL [facility] Absolute Seg Count 3,555 1,440 - 6,600 cells/uL [facility] Absolute Lymph Count 616(L) 760 - 4,000 cells/uL [facility] Absolute Comanche Count 427 160 - 1,200 cells/uL [facility] Absolute Eos Count 95 0 - 300 cells/uL [facility] Absolute Baso Count 47 0 - 100 cells/uL [facility] Segmented Neutrophils 75(H) 36 - 66 % [facility] Lymphocytes 13(L) 19 - 40 % [facility] [place] Monocytes 9 4 - 12 % [facility] Eosinophils 2 0 - 3 % [facility] [place] Basophils 1 0 - 1 % [facility] WBC Estimate Normal [facility] Platelet Estimate Low [facility] RBC Morphology Abnormal [facility] Anisocytosis 1+ [facility] Blood 10/04/2019 3:30 PM CDT us Kev Moser MD HEMATOLOGY ORDERABLES Final Result [facility] [address] [phone], documented in this encounter Visit Diagnoses Diagnosis Other autoimmune hemolytic anemias- Primary Myelofibrosis (HCC) Myelofibrosis Iron deficiency anemia due to sideropenic dysphagia Iron deficiency anemia, unspecified iron deficiency anemia type Stage 3 chronic kidney disease (HCC) Glomerulonephritis Nephritis and nephropathy, not specified as acute or chronic, 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 documented in this encounter Additional Health Concerns Assessment Noted Time PHQ-9 Depression Total Score: 0 10/04/19 20 2:45 PM CDT documented as of this encounter Care Teams Baseball Sewer Hand Relationship Specialty Start Date End Date Scott Oneill MD PCP - General Internal Medicine 04/29/17 Kev Prince DO Gastroenterology 04/29/17 12/09/22 Tavo Mishra MD [address] [place] [address] [phone] Internal Medicine 04/29/17 Gilmer Barnard MD [address] [place] [address] [phone] Consulting Physician Internal Medicine 08/28/17 4 documented as of this encounter
--- OUTSIDE RECORDS SUMMARY | 2024-04-04 01:31 | XMS_ITS | Encounter Summary ---
Author Organization [facility] Address [address] [place] [address] Phone Care Team Providers Care Grievance Coordinator Name Role Phone Scott Oneill MD Primary Care Provider [phone] Kev Prince DO Unavailable [phone] Tavo Mishra MD Unavailable [phone] Gilmer Barnard MD Unavailable [phone] Kev Moser MD Unavailable [phone] Encounter Details Date Type Department Care Team (Late st Contact Info) Description 12/31/2019 Telephone [facility] [address] [phone] Kev Moser MD [address] [place] [phone] Social History Tobacco Use Types Packs/Day [...] file 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 No / Unsure 12/14/2019 11:15 AM CDT documented as of this encounter Miscellaneous Notes * Telephone Encounter - Hillary Arita - 12/31/2019 11:46 AM CDT Patient's called and pt has another engagement Tuesday 01/02 and she rescheduled his appt to that Saturday 01/06. documented in this encounter Plan of Treatment Upcoming Encounters Date Type Department Care Team (Late st Contact Info) Description 04/07/2024 11:10 AM CLINICAL EVALUATOR Lab [facility] [address] [phone] Lab, [facility] 04/07/2024 11:15 AM CLINICAL EVALUATOR Clinical Support [facility] [address] [phone] Nurse, [facility] 05/12/2024 11:00 AM CLINICAL EVALUATOR Lab [facility] [address] [phone] Lab, [facility] 05/12/2024 11:15 AM CLINICAL EVALUATOR Office Visit [facility] [address] [phone] Kev Moser MD [address] [place] [phone] 05/12/2024 11:30 AM CLINICAL EVALUATOR Clinical Support [facility] [address] [phone] Nurse, [facility] documented as of this encounter Visit Diagnoses Not on filedocumented in this encounter Additional Health Concerns Assessment Noted Time PHQ-9 Depression Total Score: 0 10/04/19 20 2:45 PM CDT documented as of this encounter Care Teams Grievance Coordinator Relationship Specialty Start Date End Date Scott Oneill MD PCP - General Internal Medicine 04/29/17 Kev Prince DO Gastroenterology 04/29/17 12/09/22 Tavo Mishra MD [address] [facility] [address] [place] [phone] Internal Medicine 04/29/17 Gilmer Barnard MD [address] [address] Consulting Physician Internal Medicine 08/28/17 4 Kev Moser MD [address] [place] [phone] Consulting Physician Oncology 02/09/20 documented as of this encounter
--- OUTSIDE RECORDS SUMMARY | 2024-04-04 01:31 | XMS_ITS | Encounter Summary ---
Author Organization [facility] Address [address] [place] [address] Phone Care Team Providers Care Grocery Store Clerk Name Role Phone Scott Oneill MD Primary Care Provider Kev Prince DO Unavailable [phone] Tavo Mishra MD Unavailable [phone] Gilmer Barnard MD Unavailable [phone] Kev Moser MD Unavailable [phone] Encounter Details Date Type Department Care Team (Late st Contact Info) Description 06/05/2020 Telephone [facility] [place] [address] [place] [address] Kev Moser MD [address] [place] [phone] Social History Tobacco Use Types Packs/Day [...] on file 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 No / Unsure 06/05/2020 10:10 AM COMMISSIONED POLICE OFFICER documented as of this encounter Miscellaneous Notes * Telephone Encounter - Fritz Pena RN - 06/05/2020 11:23 AM CST Images from the original note were not included. Kev Moser MD You 4 minutes ago (11:18 AM) MW Noted Message text ISSIONED POLICE OFFICER * Telephone Encounter - Fritz ePna RN - 06/05/2020 10:24 AM CST JESI Patient came into office today to get samples of Eliquis 5mg. While patient was in office he statedthat he has noticed that the creases in his right hand had turned purple and then it will fade. He stated that this has happened twice in the last 5-6 months. He is scheduled to get a heart cath procedure on 06/08/20. Told him to inform his insulation cupola operator, but he just wanted to make sure you were aware as well. ISSIONED POLICE OFFICER documented in this encounter Plan of Treatment Upcoming Encounters Date Type Department Care Team (Late st Contact Info) Description 04/07/2024 11:10 AM COMMISSIONED POLICE OFFICER Lab [facility] [address] [phone] Lab, [facility] 04/07/2024 11:15 AM COMMISSIONED POLICE OFFICER Clinical Support [facility] [address] [phone] Nurse, [facility] 05/12/2024 11:00 AM COMMISSIONED POLICE OFFICER Lab [facility] [address] [phone] Lab, [facility] 05/12/2024 11:15 AM COMMISSIONED POLICE OFFICER Office Visit [facility] [address] [phone] Kev Moser MD [address] [place] [phone] 05/12/2024 11:30 AM COMMISSIONED POLICE OFFICER Clinical Support [facility] [address] [phone] Nurse, [facility] documented as of this encounter Visit Diagnoses Not on filedocumented in this encounter Additional Health Concerns Assessment Noted Time PHQ-9 Depression Total Score: 0 05/12/19 21 10:54 AM COMMISSIONED POLICE OFFICER documented as of this encounter Care Teams Grocery Store Clerk Relationship Specialty Start Date End Date Scott Oneill MD PCP - General Internal Medicine 04/29/17 Kev Prince DO Gastroenterology 04/29/17 12/09/22 Tavo Mishra MD [address] [place] [address] [phone] Internal Medicine 04/29/17 Gilmer Barnard MD [address] [place] [address] [phone] Consulting Physician Internal Medicine 08/28/17 4 Kev Moser MD [address] [place] [phone] Consulting Physician Oncology 02/09/20 documented as of this encounter
--- OUTSIDE RECORDS SUMMARY | 2024-04-04 01:31 | XMS_ITS | Encounter Summary ---
Author Organization [facility] Address [address] [place] [address] Phone Care Team Providers Care Marketing Budget Analyst Name Role Phone Scott Oneill MD Primary Care Provider [phone] Kev Prince DO Unavailable [phone] Tavo Mishra MD Unavailable [phone] Gilmer Barnard MD Unavailable [phone] Reason for Visit * Reason Comments Follow-up Encounter Details Date Type Department Care Team (Latest Contact Info) Description 01/07/2020 11:30 AM CDT Office Visit [facility] [address] [address] Kev Moser MD [address] [place] [phone] Myelofibrosis (HCC) (Primary Dx); Iron deficiency anemia due to sideropenic dysphagia; Iron deficiency anemia, unspecified iron deficiency anemia type; Stage 3a chronic kidney disease (HCC); Glomerulonephritis Social History [...] file Legal 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 No / Unsure 01/07/2020 11:10 AM CDT documented as of this encounter Last Filed Vital Signs Vital Sign Reading Time Taken Comments Blood Pressure 142/82 01/07/2020 11:13 AM CDT Pulse 68 01/07/2020 11:13 AM CDT Temperature 36.8 ??C (98.2 ??F) 01/07/2020 1 1:13 AM CDT Respiratory Rate 18 01/07/2020 11:1 3 AM CDT Oxygen Saturation 95% 01/07/2020 11: 13 AM CDT Inhaled Oxygen Concentration - - Weight 100.6 kg (221 lb 11.2 oz) 2019 11:13 AM CDT Height 165.1 cm (5' 5 ) 01/07/2020 11:1 3 AM CDT Body Mass Index 36.89 01/07/2020 11:13 AM CDT documented in this encounter Progress Notes * Kev Moser MD - 01/07/2020 11:30 AM CDT Patient: Britton Nielsen Age: 64 y.o. : 1955 Encounter Dept: [facility] [place] Encounter Date: 01/07/2020 Care Team: Current Providers PCP: Scott Oneill MD Care Team Provider: Kev Prince DO Care Team Provider: Tavo Mishra MD Care Team Provider: Gilmer Barnard MD Encounter Provider: Kev Moser MD Referring Provider: not found Consulting Physician: Kev Moser MD HISTORY OF PRESENT ILLNESS: Britton Nielsen returns. He is really doing stable. He was in the ER with some chest pain. He said he had a CT scan which was negative. DIAGNOSIS: 1. Glomerulonephritis, sclerosing (renal biopsy 04/01/17). 2. Significant anemia with bleeding ulcer, chronic kidney disease, and patient is on Cytoxan with iron deficiency. 3. Recurrent bleeding ulcers. 4. Patient had a positive BRIANNA at an outside hospital. 5. Bilateral pulmonary emboli, bilateral lower extremity DVT (10/2017). PAST TREATMENT: 1. Gastroduodenal artery embolization at [facility] 05/2017. 2. Cytoxan 100 mg daily. 3. Bone marrow biopsy 11/03/17 with normocellular marrow and maturating trilineage hematopoiesis with minimal reticulin fibrosis. Normal karyotype and NGS study. CURRENT TREATMENT: 1. EPO 40,000 units q.4 to 8 weeks (poor response, stopped on 01/2019). 2. Imuran 50 mg daily. 3. Off prednisone per his voice engineer. 4. Intermittent IV iron. 5. Eliquis b.i.d. [...] Continue Eliquis. Gave refill today. 2. He will followup in three to four months. 3. He is status post acyclovir for seven days for shingles outbreak. He is improved. 4. Bone marrow biopsy negative in the past. 5. We will continue to hold his EPO. His hemoglobin is holding stable. 6. Followup in three to four months with laboratory studies. REVIEW OF SYSTEMS: See HPI; otherwise, 12-point [...] reviewed. Kev Moser MD, FACP/rmd Vitals: Vitals: 01/07/20 1113 BP: 142/82 BP Location: Left Arm BP Position: Sitting BP Cuff Size: Regular Pulse: 68 Resp: 18 Temp: 98.2 ??F (36.8 ??C) TempSrc: Temporal SpO2: 95% Weight: 221 lb 11.2 oz (100.6 kg) Height: 5' 5 (1.651 m) Body surface area is 2.15 meters squared. Body mass index is 36.89 kg/m??. Allergies: No Known Allergies PMH/SgH/FH/SH: Past [...] Types: Cigarettes Quit date: 05/23/2011 Years since quittin.6 ??? Smokeless tobacco: Never Used Substance and [...] Current Medications: Outpatient Encounter Medications as of 01/07/2020 Medication Sig Dispense Refill ??? apixaban (Eliquis) 5 MG Tablet Take 1 Tab by [...] 30 Tab 0 ??? ergocalciferol (VITAMIN D) 03666 UNIT Capsule Take 50,000 Units by mouth [...] facility-administered encounter medications on file as of 01/07/2020. Labs: No visits with results within 7 Day(s) from this visit. Latest known visit with results is: Lab on 10/04/2019 Component Date Value Ref Range Status ??? Glucose 10/04/2019 70 70 - 105 mg/dL Final ??? Blood Urea Nitrogen 10/04/2019 46* 7 - 25 mg/dL Final ??? Creatinine 10/04/2019 2.5* 0.7 - 1.3 mg/dL Final ??? Sodium 10/04/2019 140 136 - 145 mEq/L Final ??? Potassium 10/04/2019 4.3 3.5 - 5.1 mEq/L Final ??? Chloride 10/04/2019 106 98 - 107 mEq/L Final ??? Bicarbonate 10/04/2019 24 21 - 31 mEq/L Final ??? Total Bilirubin 10/04/2019 0.5 0.3 - 1.0 mg/dL Final ??? Alk. Phosphatase 10/04/2019 78 34 - 104 U/L Final ??? Aspartate Aminotransferase 10/04/2019 12* 13 - 39 U/L Final ??? Alanine Aminotransferase 10/04/2019 12 7 - 52 U/L Final ??? Total Protein 10/04/2019 6.4 6.4 - 8.9 g/dL Final ??? Albumin 10/04/2019 4.2 3.5 - 5.7 g/dL Final ??? Calcium 10/04/2019 9.4 8.6 - 10.2 mg/dL Final ??? Anion Gap 10/04/2019 14.3 7.0 - 15.0 mEq/L Final ??? Globulin 10/04/2019 2.2 2.0 - 3.5 g/dL Final ? ? EGFR (Non ) 10/04/2019 26.0* >60.0 ml/min Final ? ? EGFR () 10/04/2019 31.5* >60.0 ml/min Final ??? WBC 10/04/2019 4.7 4.0 - 10.0 10*3/uL Final ??? HGB 10/04/2019 9.2* 13.7 - 17.5 g/dL Final ??? HCT 10/04/2019 28.9* 40.1 - 51.0 % Final ??? PLT 10/04/2019 144* 163 - 369 10*3/uL Final ??? MPV 10/04/2019 8.8* 9.4 - 12.4 fL Final ??? RBC 10/04/2019 3.25* 4.63 - 6.08 10*6/uL Final ??? MCV 10/04/2019 89 79 - 95 fL Final ??? MCH 10/04/2019 28.3 25.6 - 32.2 pg Final ??? MCHC 10/04/2019 31.8* 32.2 - 36.5 g/dL Final ??? RDW 10/04/2019 16.1* 11.6 - 14.4 % Final ??? Absolute Neutrophil Count 10/04/2019 3,555 cells/uL Final ??? Absolute Seg Count 10/04/2019 3,555 1,440 - 6,600 cells/uL Final ??? Absolute Lymph Count 10/04/2019 616* 760 - 4,000 cells/uL Final ??? Absolute Rooks Count 10/04/2019 427 160 - 1,200 cells/uL Final ??? Absolute Eos Count 10/04/2019 95 0 - 300 cells/uL Final ??? Absolute Baso Count 10/04/2019 47 0 - 100 cells/uL Final ??? Segmented Neutrophils 10/04/2019 75* 36 - 66 % Final ??? Lymphocytes 10/04/2019 13* 19 - 40 % Final ??? Monocytes 10/04/2019 9 4 - 12 % Final ??? Eosinophils 10/04/2019 2 0 - 3 % Final ??? Basophils 10/04/2019 1 0 - 1 % Final ??? WBC Estimate 10/04/2019 Normal Final ??? Platelet Estimate 10/04/2019 Low Final ??? RBC Morphology 10/04/2019 Abnormal Final ??? Anisocytosis 10/04/2019 1+ Final documented in this encounter Plan of Treatment Upcoming Encounters Date Type Department Care Team (Late st Contact Info) Description 04/07/2024 11:10 AM SUPERVISOR NUT PROCESSING Lab [facility] [address] [phone] Lab, [facility] 04/07/2024 11:15 AM SUPERVISOR NUT PROCESSING Clinical Support [facility] [address] [phone] Nurse, [facility] 05/12/2024 11:00 AM SUPERVISOR NUT PROCESSING Lab [facility] [address] [phone] Lab, [facility] 05/12/2024 11:15 AM SUPERVISOR NUT PROCESSING Office Visit [facility] [address] [phone] Kev Moser MD [address] [place] [phone] 05/12/2024 11:30 AM SUPERVISOR NUT PROCESSING Clinical Support [facility] [address] [phone] Nurse, [facility] documented as of this encounter Results * IRON W/ IRON BINDING [place]ACITY [place] (05/09/2020) Kev Moser MD LAB SEND OUTS Final Resul t [facility] [address] [place] [address], documented in this encounter Visit Diagnoses Diagnosis Myelofibrosis (HCC)- Primary Myelofibrosis Iron deficiency anemia due to sideropenic dysphagia Iron deficiency anemia, unspecified iron deficiency anemia type Stage 3a chronic kidney disease (HCC) Glomerulonephritis Nephritis and nephropathy, not specified as acute or chronic, 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 documented in this encounter Additional Health Concerns Assessment Noted Time PHQ-9 Depression Total Score: 0 01/07/20 20 11:12 AM CDT documented as of this encounter Care Teams Marketing Budget Analyst Relationship Specialty Start Date End Date Scott Oneill MD PCP - General Internal Medicine 04/29/17 Kev Prince DO Gastroenterology 04/29/17 12/09/22 Tavo Mishra MD [address] [place] [address] Internal Medicine 04/29/17 Gilmer Barnard MD [address] [place] [id number] Consulting Physician Internal Medicine 08/28/17 4 documented as of this encounter
--- OUTSIDE RECORDS SUMMARY | 2024-04-04 01:31 | XMS_ITS | Encounter Summary ---
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 Gender Identity Not on file Sexual Orientation [...] st Contact Info) Description 04/07/2024 11:10 AM DEMONSTRATOR SEWING TECHNIQUES Lab [facility] [address] [address] Lab, [facility] 04/07/2024 11:15 AM DEMONSTRATOR SEWING TECHNIQUES Clinical Support [facility] [address] [phone] Nurse, [facility] 05/12/2024 11:00 AM DEMONSTRATOR SEWING TECHNIQUES Lab [facility] [address] [phone] Lab, [facility] 05/12/2024 11:15 AM DEMONSTRATOR SEWING TECHNIQUES Office Visit [facility] [address] [phone] Kev Moser MD [address] [place] [phone] 05/12/2024 11:30 AM DEMONSTRATOR SEWING TECHNIQUES Clinical Support [facility] [address] [phone] Nurse, [facility] documented as of this encounter Visit Diagnoses Not on filedocumented in this encounter Additional Health Concerns Assessment Noted Time PHQ-9 Depression Total Score: 0 08/12/19 11:41 AM CDT documented as of this encounter Care Teams Primary School Teacher Relationship Specialty Start Date End Date Scott Oneill MD PCP - General Internal Medicine 04/29/17 Kev Prince DO Gastroenterology 04/29/17 12/09/22 aTvo Mishra MD [address] [place] [id number] Internal Medicine 04/29/17 Gilmer Barnard MD [address] [phone] Consulting Physician Internal Medicine 08/28/17 4 Kev Moser MD [address] [place] [address] Consulting Physician Oncology 02/09/20 documented as of this encounter
--- OUTSIDE RECORDS SUMMARY | 2024-04-04 01:31 | XMS_ITS | Encounter Summary ---
Author Organization [facility] Address [address] [place] [address] Phone Care Team Providers Care Senior Oracle Dba Name Role Phone Scott Oneill MD Primary Care Provider [phone] Kev Prince DO Unavailable [phone] Tavo Mishra MD Unavailable [phone] Gilmer Barnard MD Unavailable [phone] Kev Moser MD Unavailable [phone] Encounter Details Date Type Department Care Team (Late st Contact Info) Description 08/11/2020 Telephone [facility] [place] [address] [place] [phone] Kev Moser MD [address] [place] [phone] Social History Tobacco Use Types Packs/Day [...] on file 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 No / Unsure 08/11/2020 11:21 AM CDT documented as of this encounter Miscellaneous Notes * Telephone Encounter - Hillary Arita - 08/11/2020 12:52 PM CDT In the checkout you wrote for pt to get labs today. Pt stated he could not stay and also said he had labs done Friday this week at [facility]. I have a call out to get those labs faxed over but were there other labs that you needed that [facility] did not draw on Friday? documented in this encounter Plan of Treatment Upcoming Encounters Date Type Department Care Team (Late st Contact Info) Description 04/07/2024 11:10 AM CROP OR GRAIN FARMWORKER Lab [facility] [address] [phone] Lab, [facility] 04/07/2024 11:15 AM CROP OR GRAIN FARMWORKER Clinical Support [facility] [address] [phone] Nurse, [facility] 05/12/2024 11:00 AM CROP OR GRAIN FARMWORKER Lab [facility] [address] [phone] Lab, [facility] 05/12/2024 11:15 AM CROP OR GRAIN FARMWORKER Office Visit [facility] [address] [phone] Kev Moser MD [address] [place] [phone] 05/12/2024 11:30 AM CROP OR GRAIN FARMWORKER Clinical Support [facility] [address] [phone] [facility] documented as of this encounter Visit Diagnoses Not on filedocumented in this encounter Additional Health Concerns Assessment Noted Time PHQ-9 Depression Total Score: 0 08/12/19 21 11:41 AM CDT documented as of this encounter Care Teams Senior Oracle Dba Relationship Specialty Start Date End Date Scott Oneill MD PCP - General Internal Medicine 04/29/17 Kev Prince DO Gastroenterology 04/29/17 12/09/22 Tavo Mishra MD [address] [place] [address] Internal Medicine 04/29/17 Gilmer Barnard MD [address] [place] [address] Consulting Physician Internal Medicine 08/28/17 4 Kev Moser MD [address] [place] [phone] Consulting Physician Oncology 02/09/20 documented as of this encounter
--- OUTSIDE RECORDS SUMMARY | 2024-04-04 01:32 | XMS_ITS | Encounter Summary ---
Author Organization [facility] Address [address] [place] [address] Phone Care Team Providers Care Associate Faculty Name Role Phone Scott Oneill MD Primary Care Provider [phone] Kev Prince DO Unavailable [phone] Tavo Mishra MD Unavailable [phone] Gilmer Barnard MD Unavailable [phone] Reason for Visit * Reason Comments Follow-up Encounter Details Date Type Department Care Team (Latest Contact Info) Description 04/07/2019 3:00 PM METER TESTER PRIMARY Office Visit [facility] [address] [phone] Kev Moser MD [address] [place] [phone] Myelofibrosis (HCC) (Primary Dx); Other autoimmune hemolytic anemias (HCC); Iron deficiency anemia due to sideropenic dysphagia; Stage 3 chronic kidney disease (HCC) Social History Tobacco Use Types Packs/Day Years Used Date Smoking Tobacco: Former Cigarettes 1 30 0 05/23/1981 - 05/23/2011 Smokeless Tobacco: Never Alcohol Use Standard Drinks/Week Comments No 0 (1 standard drink = 0.6 oz pur e alcohol) PHQ-2 Answer Date Recorded PHQ-2 Score 0 12/01/2018 Sex and Gender Information Value Date Recorded Sex Assigned at Not on file Legal Sex Male 3:42 PM METER TESTER PRIMARY Gender Identity Not on file Sexual Orientation Not on file documented as of this encounter Last Filed Vital Signs Vital Sign Reading Time Taken Comments Blood Pressure 154/62 04/07/2019 2:56 PM METER TESTER PRIMARY Pulse 64 04/07/2019 2:56 PM METER TESTER PRIMARY Temperature 37.3 ??C (99.1 ??F) 04/07/2019 2:56 PM CS T Respiratory Rate 18 04/07/2019 2:56 PM METER TESTER PRIMARY Oxygen Saturation 96% 04/07/2019 2:56 PM METER TESTER PRIMARY Inhaled Oxygen Concentration - - Weight 102.1 kg (225 lb) 04/07/2019 2:56 PM METER TESTER PRIMARY Height 165.1 cm (5' 5 ) 04/07/2019 2:56 PM METER TESTER PRIMARY Body Mass Index 37.44 04/07/2019 2:56 PM METER TESTER PRIMARY documented in this encounter Progress Notes * Kev Moser MD - 04/07/2019 3:00 PM CST Patient: Britton Nielsen Age: 64 y.o. : 1955 Encounter Dept: [facility] [place] Encounter Date: 04/07/2019 Care Team: Current Providers PCP: Scott Oneill MD Care Team Provider: Kev Prince DO Care Team Provider: Tavo Mishra MD Care Team Provider: Gilmer Barnard MD Encounter Provider: Kev Moser MD Referring Provider: not found Consulting Physician: Kev Moser MD HISTORY OF PRESENT ILLNESS: Britton Nielsen returns. He is doing stable. He feels good. He has beenoff of EPO since January. DIAGNOSIS: 1. Glomerulonephritis, sclerosing (renal biopsy 04/01/17). 2. Significant anemia with bleeding ulcer, chronic kidney disease, and patient is on Cytoxan with iron deficiency. 3. Recurrent bleeding ulcers. 4. Patient had a positive BRIANNA at an outside hospital. 5. Bilateral pulmonary emboli, bilateral lower extremity DVT (10/2017). PAST TREATMENT: 1. Gastroduodenal artery embolization at [facility] 05/2017. 2. Cytoxan 100 mg daily. 3. Bone marrow biopsy 11/03/17 with normocellular marrow and maturating trilineage hematopoiesis with minimal reticulin fibrosis. Normal karyotype and NGS study. CURRENT TREATMENT: 1. EPO 40,000 units q.4 to 8 weeks (poor response, stopped on 01/2019). 2. CellCept 500 mg b.i.d. 3. Off prednisone per his traveling storekeeper. 4. Intermittent IV iron. 5. Eliquis b.i.d. TREATMENT GUIDELINES: Consistent with NCCN guidelines. PROGNOSIS: EXPECTED RESPONSE TO TREATMENT: EXPECTED QUALITY OF LIFE DURING TREATMENT: ECOG: PAIN: PLAN FOR PAIN: CODE STATUS: ASSESSMENT: 1. Glomerulonephritis, sclerosing (renal biopsy 04/01/17). 2. Significant anemia with bleeding ulcer, chronic kidney disease, and patient is on Cytoxan with iron deficiency. 3. Recurrent bleeding ulcers. 4. Patient had a positive BRIANNA at an outside hospital. 5. Bilateral pulmonary emboli, bilateral lower extremity DVT (10/2017). PLAN: 1. Patient now has [facility]. We sent in Eliquis and gave him samples. Hopefully, he can get his prescription mailed to him. 2. Continue oral B12. 3. Continue to dispense Eliquis. 4. Continue CellCept 500 b.i.d. 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 5. Bone marrow biopsy negative in the past. 6. Creatinine is stable at 2.5. Not much response with 40,000 units of EPO monthly. He may need more but he is currently feeling stable. We will discuss with him about increasing frequency or just staying off and observing. Right now, we will hold it and have him return in one month with repeat bloodwork. REVIEW OF SYSTEMS: See HPI; otherwise, 12-point [...] reviewed. Kev Moser MD, FACP/rmd Vitals: Vitals: 04/07/19 1456 BP: 154/62 BP Location: Left Arm BP Position: Sitting BP Cuff Size: Regular Pulse: 64 Resp: 18 Temp: 99.1 ??F (37.3 ??C) TempSrc: Temporal SpO2: 96% Weight: 225 lb (102.1 kg) Height: 5' [...] Last attempt to quit: 05/23/2011 Years since quittin.8 ??? Smokeless tobacco: Never Used Substance and [...] Current Medications: Outpatient Encounter Medications as of 04/07/2019 Medication Sig Dispense Refill ??? apixaban (ELIQUIS) 5 MG Tablet Take 1 Tab by mouth 2 times daily. 56 Tab 0 ??? atorvastatin (LIPITOR) 20 MG Tablet Take 20 mg by mouth daily. ??? Calcium Carb-Cholecalciferol (CALCIUM 600 + D PO) Take by mouth 2 times daily. ??? cyanocobalamin 1000 MCG Tablet Take 1 tablet by mouth daily 30 Tab 0 ??? ergocalciferol (VITAMIN D) 62132 UNIT Capsule Take 50,000 Units by mouth once a week. ??? ferrous sulfate 325 (65 Fe) MG Tablet Take 1 Tab by mouth daily. ??? fluticasone (FLONASE) 50 MCG/ACT Suspension ??? furosemide [...] 20 mEq by mouth 2 timesdaily. ??? traMADol (ULTRAM) 50 MG Tablet 0 No facility-administered encounter medications on file as of 04/07/2019. Labs: No visits with results within 7 [...] 760 - 4,000 cells/uL Final ??? Absolute [place] Count 08/19/2018 256 160 - 1,200 cells/uL [...] 1+ Final ??? Poikilocytosis 08/19/2018 1+ Final R TESTER PRIMARY R TESTER PRIMARY documented in this encounter Plan of Treatment Upcoming Encounters Date Type Department Care Team (Late st Contact Info) Description 04/07/2024 11:10 AM METER TESTER PRIMARY Lab [facility] [address] [phone] Lab, [facility] 04/07/2024 11:15 AM METER TESTER PRIMARY Clinical Support [facility] [address] [phone] Nurse, [facility] 05/12/2024 11:00 AM METER TESTER PRIMARY Lab [facility] [address] [phone] Lab, [facility] 05/12/2024 11:15 AM METER TESTER PRIMARY Office Visit [facility] [address] [phone] Kev Moser MD [address] [place] [phone] 05/12/2024 11:30 AM METER TESTER PRIMARY Clinical Support [facility] [address] [phone] Nurse, [facility] documented as of this encounter Visit Diagnoses Diagnosis Myelofibrosis (HCC)- Primary Myelofibrosis 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 Stage 3 chronic kidney disease (HCC) documented in this encounter Additional Health Concerns Assessment Noted Time PHQ-9 Depression Total Score: 0 04/07/19 20 2:58 PM METER TESTER PRIMARY documented as of this encounter Care Teams Associate Faculty Relationship Specialty Start Date End Date Scott Oneill MD PCP - General Internal Medicine 04/29/17 Kev Prince DO Gastroenterology 04/29/17 12/09/22 Tavo Mishra MD [address] [address] Internal Medicine 04/29/17 Gilmer Barnard MD [address] [facility] [address] [place] [address] Consulting Physician Internal Medicine 08/28/17 4 documented as of this encounter
--- OUTSIDE RECORDS SUMMARY | 2024-04-04 01:32 | XMS_ITS | Encounter Summary ---
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 Gender Identity Not on file Sexual Orientation Not on file documented as of this encounter Plan of Treatment Upcoming Encounters Date Type Department Care Team (Late st Contact Info) Description 04/07/2024 11:10 AM SLIDER ASSEMBLER Lab [facility] [address] [address] Lab, [facility] 04/07/2024 11:15 AM SLIDER ASSEMBLER Clinical Support [facility] [address] [address] Nurse, [facility] 05/12/2024 11:00 AM SLIDER ASSEMBLER Lab [facility] [address] [phone] Lab, [facility] 05/12/2024 11:15 AM SLIDER ASSEMBLER Office Visit [facility] [address] [phone] Kev Moser MD [address] [place] [phone] 05/12/2024 11:30 AM SLIDER ASSEMBLER Clinical Support [facility] [address] [phone] Nurse, [facility] documented as of this encounter Visit Diagnoses Not on filedocumented in this encounter Additional Health Concerns Assessment Noted Time PHQ-9 Depression Total Score: 0 04/07/19 20 2:58 PM SLIDER ASSEMBLER documented as of this encounter Care Teams Staffing Consultant Relationship Specialty Start Date End Date Scott Oneill MD PCP - General Internal Medicine 04/29/17 Kev Prince DO Gastroenterology 04/29/17 12/09/22 Tavo Mishra MD [address] [place] [address] [phone] Internal Medicine 04/29/17 Gilmer Barnard MD [address] [place] [address] Consulting Physician Internal Medicine 08/28/17 4 documented as of this encounter
--- OUTSIDE RECORDS SUMMARY | 2024-04-04 01:32 | XMS_ITS | Encounter Summary ---
Author Organization [facility] Address [address] [place] [address] Phone Care Team Providers Care Training And Development Officer Name Role Phone Scott Oneill MD Primary Care Provider Kev Prince DO Unavailable [phone] Tavo Mishra MD Unavailable [phone] Gilmer Barnard MD Unavailable [phone] Encounter Details Date Type Department Care Team (Late st Contact Info) Description 08/20/2019 Telephone [facility] [address] [phone] Kev Moser MD [address] [place] [phone] Social History Tobacco Use Types Packs/Day [...] on file 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 No / Unsure 08/20/2019 11:02 AM CDT documented as of this encounter Miscellaneous Notes * Addendum Note - Fritz Pena RN - 08/20/2019 12:32 PM CDTAddended by: FRITZ PENA on: 08/20/2019 12:32 PM Modules accepted: Orders * Telephone Encounter - Fritz Pena RN - 08/20/2019 12:31 PM CDT Pateints came in and received Eliquis 5mg BID #56 samples for Britton. Per Dr. Moser's note from 07/05/2019 states to continue Eliquis samples. * Telephone Encounter - Rocio Singer - 08/20/2019 11:08 AM CDT Patient in office. Fritz daniels. * Telephone Encounter - Polly Botello RN - 08/20/2019 8:20 AM CDT Patient said he needs refill on eliquis. 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 documented in this encounter Plan of Treatment Upcoming Encounters Date Type Department Care Team (Late st Contact Info) Description 04/07/2024 11:10 AM CONE RUNNER Lab [facility] [address] [address] Lab, [facility] 04/07/2024 11:15 AM CONE RUNNER Clinical Support [facility] [address] [phone] Nurse, [facility] 05/12/2024 11:00 AM CONE RUNNER Lab [facility] [address] [phone] Lab, [facility] 05/12/2024 11:15 AM CONE RUNNER Office Visit [facility] [address] [phone] Kev Moser MD [address] [place] [phone] 05/12/2024 11:30 AM CONE RUNNER Clinical Support [facility] [address] [phone] Nurse, [facility] documented as of this encounter Visit Diagnoses Diagnosis Other autoimmune hemolytic anemias- Primary documented in this encounter Additional Health Concerns Assessment Noted Time PHQ-9 Depression Total Score: 0 07/05/19 20 3:14 PM CDT documented as of this encounter Care Teams Training And Development Officer Relationship Specialty Start Date End Date Scott Oneill MD PCP - General Internal Medicine 04/29/17 Kev Prince DO Gastroenterology 04/29/17 12/09/22 Tavo Mishra MD [address] [place] [address] Internal Medicine 04/29/17 Gilmer Barnard MD [address] [place] [address] Consulting Physician Internal Medicine 08/28/17 4 documented as of this encounter
--- OUTSIDE RECORDS SUMMARY | 2024-04-04 01:32 | XMS_ITS | Encounter Summary ---
Author Organization [facility] Address [address] [place] [address] Phone Care Team Providers Care Senior Manufacturing Test Engineer Name Role Phone Scott Oneill MD Primary Care Provider Kev Prince DO Unavailable [phone] Tavo Mishra MD Unavailable [phone] Gilmer Barnard MD Unavailable [phone] Reason for Visit * Reason Comments Follow-up Encounter Details Date Type Department Care Team (Late st Contact Info) Description 07/05/2019 3:15 PM CDT Office Visit [facility] [address] [phone] Kev Moser MD [address] [place] [phone] Other autoimmune hemolytic anemias (HCC) (Primary Dx); Iron deficiency anemia, unspecified iron deficiency anemia [...] file 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 No / Unsure 07/05/2019 3:00 PM CDT documented as of this encounter Last Filed Vital Signs Vital Sign Reading Time Taken Comments Blood Pressure 166/80 07/05/2019 3:09 PM CDT Pulse 78 07/05/2019 3:09 PM CDT Temperature 37.7 ??C (99.9 ??F) 07/05/2019 3:09 PM CD T Respiratory Rate 16 07/05/2019 3:09 PM CDT Oxygen Saturation 99% 07/05/2019 3:09 PM CDT Inhaled Oxygen Concentration - - Weight 102.6 kg (226 lb 3.2 oz) 07/05/2019 3:09 PM CDT Height 165.1 cm (5' 5 ) 07/05/2019 3:09 PM CDT Body Mass Index 37.64 07/05/2019 3:09 PM CDT documented in this encounter Progress Notes * Kev Moser MD - 07/05/2019 3:15 PM CDT Patient: Britton Nielsen Age: 64 y.o. : 1955 Encounter Dept: [facility] [place] Encounter Date: 07/05/2019 Care Team: Current Providers PCP: Scott Oneill [...] PAST TREATMENT: 1. Gastroduodenal artery embolization at [facility] 05/2017. 2. Cytoxan 100 mg daily. 3. Bone marrow biopsy 11/03/17 with normocellular marrow and maturating trilineage hematopoiesis with minimal reticulin fibrosis. Normal karyotype and NGS study. CURRENT TREATMENT: 1. EPO 40,000 units q.4 to 8 weeks (poor response, stopped on 01/2019). 2. Imuran 50 mg daily. 3. Off prednisone per his derrickman helper. 4. Intermittent IV iron. 5. Eliquis b.i.d. [...] bilateral lower extremity DVT (10/2017). PLAN: 1. Refill Eliquis today. 2. He is status post acyclovir for seven days for shingles outbreak. He seems improved. 3. Bone marrow biopsy negative in the past. 4. We will hold his EPO. His hemoglobin is stable. His kidney is stable. He is feeling good. I willsee him back in three months. 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 REVIEW OF SYSTEMS: See HPI; otherwise, 12-point [...] reviewed. Kev Moser MD, FACP/rmd Vitals: Vitals: 07/05/19 1509 BP: 166/80 BP Location: Left Arm BP Position: Sitting BP Cuff Size: Regular Pulse: 78 Resp: 16 Temp: 99.9 ??F (37.7 ??C) TempSrc: Temporal SpO2: 99% Weight: 226 lb 3.2 oz (102.6 kg) Height: 5' 5 (1.651 m) Body surface area is 2.17 meters squared. Body mass index is 37.64 kg/m??. Allergies: No Known Allergies PMH/SgH/FH/SH: Past [...] Last attempt to quit: 05/23/2011 Years since quittin.1 ??? Smokeless tobacco: Never Used Substance and [...] Current Medications: Outpatient Encounter Medications as of 07/05/2019 Medication Sig Dispense Refill ??? atorvastatin (LIPITOR) 20 MG Tablet Take 20 mg by mouth daily. ??? [DISCONTINUED] azaTHIOprine (IMURAN) 50 MG Tablet Take 200 mg by mouth. ??? Calcium Carb-Cholecalciferol (CALCIUM 600 + D PO) Take by mouth 2 times daily. ??? cyanocobalamin 1000 MCG Tablet Take 1 tablet by mouth daily 30 Tab 0 ??? ergocalciferol (VITAMIN D) 36832 UNIT Capsule Take 50,000 Units by mouth [...] traMADol (ULTRAM) 50 MG Tablet 0 ??? valACYclovir (VALTREX) 1 GM Tablet Take 1 Tab by mouth 3 times daily. 21 Tab 0 No facility-administered encounter medications on file as of 07/05/2019. Labs: No visits with results within 7 [...] 760 - 4,000 cells/uL Final ??? Absolute Winston Count 08/19/2018 256 160 - 1,200 cells/uL [...] Contact Info) Description 04/07/2024 11:10 AM ABRASIVE WATER JET CUTTER OPERATOR Lab [facility] [address] [phone] Lab, [facility] 04/07/2024 11:15 AM ABRASIVE WATER JET CUTTER OPERATOR Clinical Support [facility] [address] [phone] Nurse, [facility] 05/12/2024 11:00 AM ABRASIVE WATER JET CUTTER OPERATOR Lab [facility] [address] [phone] Lab, [facility] 05/12/2024 11:15 AM ABRASIVE WATER JET CUTTER OPERATOR Office Visit [facility] [address] [phone] Kev Moser MD [address] [place] [phone] 05/12/2024 11:30 AM ABRASIVE WATER JET CUTTER OPERATOR Clinical Support [facility] [address] [phone] Nurse, [facility] documented as of this encounter Visit Diagnoses Diagnosis Other autoimmune hemolytic anemias- Primary Iron deficiency anemia, unspecified iron deficiency anemia type documented in this encounter Additional Health Concerns Assessment Noted Time PHQ-9 Depression Total Score: 0 07/05/19 20 3:14 PM CDT documented as of this encounter Care Teams Senior Manufacturing Test Engineer Relationship Specialty Start Date End Date Scott Oneill MD PCP - General Internal Medicine 04/29/17 Kev Prince DO Gastroenterology 04/29/17 12/09/22 Tavo Mishra MD [address] [place] [address] Internal Medicine 04/29/17 Gilmer Barnard MD [address] [place] [address] Consulting Physician Internal Medicine 08/28/17 4 documented as of this encounter
--- OUTSIDE RECORDS SUMMARY | 2024-04-04 01:32 | XMS_ITS | Encounter Summary ---
Author Organization [facility] Address [address] [place] [address] Phone Care Team Providers Care Rock Drill Operator Name Role Phone Scott Oneill MD Primary Care Provider Kev Prince DO Unavailable [phone] Tavo Mishra MD Unavailable [phone] Gilmer Barnard MD Unavailable [phone] Reason for Visit * Reason Comments Follow-up Encounter Details Date Type Department Care Team (Late st Contact Info) Description 05/10/2019 11:45 AM DIRECTOR NEWS Office [facility] [address] [phone] Kev Moser MD [address] [place] [phone] 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); Stage 3 chronic kidney disease (HCC); Other autoimmune hemolytic anemias (HCC); Glomerulonephritis Social History Tobacco Use Types [...] file Legal Sex Male 3:42 PM DIRECTOR NEWS Gender Identity Not on file Sexual Orientation Not on file documented as of this encounter Last Filed Vital Signs Vital Sign Reading Time Taken Comments Blood Pressure 166/72 05/10/2019 11:50 AM DIRECTOR NEWS Pulse 81 05/10/2019 11:50 AM DIRECTOR NEWS Temperature 37.7 ??C (99.8 ??F) 05/10/2019 11:[address] Respiratory Rate 18 05/10/2019 11:50 AM DIRECTOR NEWS Oxygen Saturation 95% 05/10/2019 11:50 AM DIRECTOR NEWS Inhaled Oxygen Concentration - - Weight 103 kg (227 lb) 05/10/2019 11:50 AM DIRECTOR NEWS Height 165.1 cm (5' 5 ) 05/10/2019 11:50 AM DIRECTOR NEWS Body Mass Index 37.77 05/10/2019 11:50 AM DIRECTOR NEWS documented in this encounter Progress Notes * Kev Moser MD - 05/10/2019 11:45 AM CST Patient: Britton Nielsen Age: 64 y.o. : 1955 Encounter Dept: [facility] Encounter Date: 05/10/2019 Care Team: Current Providers PCP: Scott Oneill MD Care Team Provider: Kev Prince DO Care Team Provider: Tavo Mishra MD Care Team Provider: Gilmer Barnard MD Encounter Provider: Kev Moser MD Referring Provider: not found Consulting Physician: Kev Moser MD HISTORY OF PRESENT ILLNESS: Britton Nielsen returns. He is doing stable. He feels well. He has beenswitched from CellCept to azathioprine. DIAGNOSIS: 1. Glomerulonephritis, sclerosing (renal biopsy 04/01/17). 2. Significant anemia with bleeding ulcer, chronic kidney disease, and patient is on Cytoxan with iron deficiency. 3. Recurrent bleeding ulcers. 4. Patient had a positive BRIANNA at an outside hospital. 5. Bilateral pulmonary emboli, bilateral lower extremity DVT (10/2017). PAST TREATMENT: 1. Gastroduodenal artery embolization at [facility] 05/2017. 2. Cytoxan 100 mg daily. 3. Bone marrow biopsy 11/03/17 with normocellular marrow and maturating trilineage hematopoiesis with minimal reticulin fibrosis. Normal karyotype and NGS study. CURRENT TREATMENT: 1. EPO 40,000 units q.4 to 8 weeks (poor response, stopped on 01/2019). 2. Imuran 50 mg daily. 3. 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 4. Intermittent IV iron. 5. Eliquis b.i.d. [...] bilateral lower extremity DVT (10/2017). PLAN: 1. Give samples of Eliquis today. 2. Continue oral B12. 3. Patient???s has been switched from CellCept to Imuran. Continue on this at 50. 4. Bone marrow biopsy negative in the past. 5. Creatinine stable at 2.4, hemoglobin stable at 8.4. He is symptomatically stable. We will try tofollow him off of EPO. REVIEW OF SYSTEMS: See HPI; otherwise, 12-point [...] reviewed. Kev Moser MD, FACP/rmd Vitals: Vitals: 05/10/19 1150 BP: 166/72 BP Location: Right Arm BP Position: Sitting BP Cuff Size: Regular Pulse: 81 Resp: 18 Temp: 99.8 ??F (37.7 ??C) TempSrc: Temporal SpO2: 95% Weight: 227 lb (103 kg) Height: 5' 5 (1.651 m) Body surface area is 2.17 meters squared. Body mass index is 37.77 kg/m??. Allergies: No Known Allergies PMH/SgH/FH/SH: Past [...] Last attempt to quit: 05/23/2011 Years since quittin.9 ??? Smokeless tobacco: [...] Current Medications: Outpatient Encounter Medications as of 05/10/2019 Medication Sig Dispense Refill ??? atorvastatin (LIPITOR) 20 MG Tablet Take 20 mg by mouth daily. ??? azaTHIOprine (IMURAN) 50 MG Tablet Take 200 mg by mouth. ??? Calcium Carb-Cholecalciferol (CALCIUM 600 + D PO) Take by mouth 2 times daily. ??? cyanocobalamin 1000 MCG Tablet Take 1 tablet by mouth daily 30 Tab 0 ??? ergocalciferol (VITAMIN D) 14419 UNIT Capsule Take 50,000 Units by mouth [...] ??? mycophenolate (CELLCEPT) 500 MG Tablet ??? [DISCONTINUED] ijklplno-olydgtqym-smkihptnwmnvoo (CORTISPORIN) 3.5-89281-3 Solution INSTILL 4 DROPS INTO AFFECTED EAR(S) THREE TIMES DAILY ??? ondansetron (ZOFRAN) 4 MG Tablet ??? pantoprazole (PROTONIX) 40 MG Tablet Delayed Response Take 40 mg by mouth 2 times daily. ??? potassium chloride SA (KLORCON M) 20 MEQ Tablet Controlled Release Take 20 mEq by mouth 2 timesdaily. ??? traMADol (ULTRAM) 50 MG Tablet 0 No facility-administered encounter medications on file as of 05/10/2019. Labs: No visits with results within 7 [...] 760 - 4,000 cells/uL Final ??? Absolute Beadle Count 08/19/2018 256 160 - 1,200 cells/uL [...] 1+ Final ??? Poikilocytosis 08/19/2018 1+ Final CTOR NEWS CTOR NEWS documented in this encounter Plan of Treatment Upcoming Encounters Date Type Department Care Team (Late st Contact Info) Description 04/07/2024 11:10 AM DIRECTOR NEWS Lab [facility] [address] [phone] Lab, [facility] 04/07/2024 11:15 AM DIRECTOR NEWS Clinical Support [facility] [address] [phone] Nurse, [facility] 05/12/2024 11:00 AM DIRECTOR NEWS Lab [facility] [address] [phone] Lab, [facility] 05/12/2024 11:15 AM DIRECTOR NEWS Office Visit [facility] [address] [phone] Kev Moser MD [address] [place] [phone] 05/12/2024 11:30 AM DIRECTOR NEWS Clinical Support [facility] [address] [phone] Nurse, [facility] documented as of this encounter Visit Diagnoses Diagnosis 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 Stage 3 chronic kidney disease (HCC) Other autoimmune hemolytic anemias Glomerulonephritis Nephritis and nephropathy, not specified as acute or chronic, 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 documented in this encounter Additional Health Concerns Assessment Noted Time PHQ-9 Depression Total Score: 0 05/10/19 20 11:56 AM DIRECTOR NEWS documented as of this encounter Care Teams Rock Drill Operator Relationship Specialty Start Date End Date Scott Oneill MD PCP - General Internal Medicine 04/29/17 Kev Prince DO Gastroenterology 04/29/17 12/09/22 Tavo Mishra MD [address] [place] [address] [phone] Internal Medicine 04/29/17 Gilmer Barnard MD [address] [facility] [address] [place] [address] [phone] Consulting Physician Internal Medicine 08/28/17 4 documented as of this encounter
--- OUTSIDE RECORDS SUMMARY | 2024-04-04 01:32 | XMS_ITS | Encounter Summary ---
Author Organization [facility] Address [address] [place] [address] Phone Care Team Providers Care Counter Intelligence Technician Name Role Phone Scott Oneill MD Primary Care Provider Kev Prince DO Unavailable [phone] Tavo Mishra MD Unavailable [phone] Gilmer Barnard MD Unavailable [phone] Encounter Details Date Type Department Care Team (Late st Contact Info) Description 04/29/2019 Telephone [facility] [place] [address] [place] [address] Kev Moser MD [address] [place] [phone] Social History Tobacco Use Types Packs/Day [...] on file 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 Orders placed and mailed to patient. Patient made aware to bring orders to hospital before appointment. LING LINE ATTENDANT documented in this encounter Plan of Treatment Upcoming Encounters Date Type Department Care Team (Late st Contact Info) Description 04/07/2024 11:10 AM BOTTLING LINE ATTENDANT Lab [facility] [address] [phone] Lab, [facility] 04/07/2024 11:15 AM BOTTLING LINE ATTENDANT Clinical Support [facility] [address] [phone] Nurse, [facility] 05/12/2024 11:00 AM BOTTLING LINE ATTENDANT Lab [facility] [address] [phone] Lab, [facility] 05/12/2024 11:15 AM BOTTLING LINE ATTENDANT Office Visit [facility] [address] [phone] Kev Moser MD [address] [place] [phone] 05/12/2024 11:30 AM BOTTLING LINE ATTENDANT Clinical Support [facility] [address] [phone] Nurse, [facility] documented as of this encounter Results * IRON W/ IRON BINDING CAPACITY [place] (05/03/2019) us Kev Moser MD LAB SEND OUTS Final Resul t CANCER INTERVENTIONAL NURSE [facility] [place] [address], [place] [phone] documented in this encounter Visit Diagnoses Diagnosis 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 Stage 3 chronic kidney disease (HCC) Other autoimmune hemolytic anemias documented in this encounter Additional Health Concerns Assessment Noted Time PHQ-9 Depression Total Score: 0 04/07/19 20 2:58 PM BOTTLING LINE ATTENDANT documented as of this encounter Care Teams Counter Intelligence Technician Relationship Specialty Start Date End Date Scott Oneill MD PCP - General Internal Medicine 04/29/17 Kev Prince DO Gastroenterology 04/29/17 12/09/22 Tavo Mishra MD [address] [place] [address] Internal Medicine 04/29/17 Gilmer Barnard MD [address] [place] [address] Consulting Physician Internal Medicine 08/28/17 4 documented as of this encounter
--- OUTSIDE RECORDS SUMMARY | 2024-04-04 01:32 | XMS_ITS | Encounter Summary ---
Author Organization [facility] Care Team Providers Care Director [employer]eron[employer] Name Role Phone Scott Oneill MD Primary Care Provider [phone] Kev Prince DO Unavailable [phone] Tavo Mishra MD Unavailable [phone] Gilmer Barnard MD Unavailable [phone] Encounter Details Date Type Department Care Team (Latest Contact Info) Description 06/07/2019 Travel Social History Tobacco Use Types Packs/Day Years Used Date Smoking Tobacco: Former Cigarettes 1 30 0 05/23/1981 - 05/23/2011 Smokeless Tobacco: Never Alcohol Use Standard Drinks/Week Comments No 0 (1 standard drink = 0.6 oz pur e alcohol) PHQ-2 Answer Date Recorded PHQ-2 Score 1 06/07/2019 Sex and Gender Information Value Date Recorded Sex Assigned at Not on file 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 Gender Identity Not on file Sexual Orientation Not on file documented as of this encounter Plan of Treatment Upcoming Encounters Date Type Department Care Team (Late st Contact Info) Description 04/07/2024 11:10 AM UTILITY SYSTEM OPERATOR Lab [facility] [address] [address] Lab, [facility] 04/07/2024 11:15 AM UTILITY SYSTEM OPERATOR Clinical Support [facility] [address] [phone] Nurse, [facility] 05/12/2024 11:00 AM UTILITY SYSTEM OPERATOR Lab [facility] [address] [phone] Lab, [facility] 05/12/2024 11:15 AM UTILITY SYSTEM OPERATOR Office Visit [facility] [address] [phone] Kev Moser MD [address] [place] [phone] 05/12/2024 11:30 AM UTILITY SYSTEM OPERATOR Clinical Support [facility] [address] [phone] Nurse, [facility] documented as of this encounter Visit Diagnoses Not on filedocumented in this encounter Additional Health Concerns Assessment Noted Time PHQ-9 Depression Total Score: 1 06/07/19 20 11:13 AM CDT documented as of this encounter Care Teams Director [employer]eron[employer] Commission Relationship Specialty Start Date End Date Scott Oneill MD PCP - General Internal Medicine 04/29/17 Kev Prince DO Gastroenterology 04/29/17 12/09/22 Tavo Mishra MD [address] [place] [address] Internal Medicine 04/29/17 Gilmer Barnard MD [address] [place] [address] Consulting Physician Internal Medicine 08/28/17 4 documented as of this encounter
--- OUTSIDE RECORDS SUMMARY | 2024-04-04 01:32 | XMS_ITS | Encounter Summary ---
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 Gender Identity Not on file Sexual Orientation Not on file documented as of this encounter Plan of Treatment Upcoming Encounters Date Type Department Care Team (Late st Contact Info) Description 04/07/2024 11:10 AM TRANSPORTATION DEPARTMENT HEAD Lab [facility] [address] [address] Lab, [facility] 04/07/2024 11:15 AM TRANSPORTATION DEPARTMENT HEAD Clinical Support [facility] [address] [phone] Nurse, [facility] 05/12/2024 11:00 AM TRANSPORTATION DEPARTMENT HEAD Lab [facility] [address] [phone] Lab, [facility] 05/12/2024 11:15 AM TRANSPORTATION DEPARTMENT HEAD Office Visit [facility] [address] [phone] Kev Moser MD [address] [place] [phone] 05/12/2024 11:30 AM TRANSPORTATION DEPARTMENT HEAD Clinical Support [facility] [address] [phone] Nurse, [facility] documented as of this encounter Visit Diagnoses Not on filedocumented in this encounter Additional Health Concerns Assessment Noted Time PHQ-9 Depression Total Score: 0 05/10/19 11:56 AM TRANSPORTATION DEPARTMENT HEAD documented as of this encounter Care Teams Health Sciences Dean Relationship Specialty Start Date End Date Scott Oneill MD PCP - General Internal Medicine 04/29/17 Kev Prince DO Gastroenterology 04/29/17 12/09/22 Tavo Mishra MD [address] [place] [address] [phone] Internal Medicine 04/29/17 Gilmer Barnard MD [address] [place] [phone] Consulting Physician Internal Medicine 08/28/17 4 documented as of this encounter
--- OUTSIDE RECORDS SUMMARY | 2024-04-04 01:32 | XMS_ITS | Encounter Summary ---
Author Organization [facility] Address [address] [place] [address] Phone Care Team Providers Care Supervising Editor Trailer Name Role Phone Scott Oneill MD Primary Care Provider Kev Prince DO Unavailable [phone] Tavo Mishra MD Unavailable [phone] Gilmer Barnard MD Unavailable [phone] Reason for Visit * Reason Comments Other Encounter Details Date Type Department Care Team (Latest Contact Info) Description 04/07/2019 4:00 PM COMMERCIAL HOUSEKEEPER Clinical Support [facility] [address] [phone] Nurse, [facility] Other autoimmune hemolytic anemias (HCC); Iron deficiency [...] file Legal Sex Male 3:42 PM COMMERCIAL HOUSEKEEPER Gender Identity Not on file Sexual Orientation Not on file documented as of this encounter Progress Notes * Zahida Montes RN - 04/07/2019 4:00 PM CST Pt given samples of Eliquis 3 boxes of Eliquis 5 mg with 14 tabs per box= 42 tabs 2 boxes of Eliquis 2.5 mg with 14 tabs per box = 28 tabs. Written on box to take 2 tabs twice a dayto = dose of 5 mg Pt voices understanding. ERCIAL HOUSEKEEPER documented in this encounter Plan of Treatment Upcoming Encounters Date Type Department Care Team (Late st Contact Info) Description 04/07/2024 11:10 AM COMMERCIAL HOUSEKEEPER Lab [facility] [address] [phone] Lab, [facility] 04/07/2024 11:15 AM COMMERCIAL HOUSEKEEPER Clinical Support [facility] [address] [phone] Nurse, [facility] 05/12/2024 11:00 AM COMMERCIAL HOUSEKEEPER Lab [facility] [address] [phone] Lab, [facility] 05/12/2024 11:15 AM COMMERCIAL HOUSEKEEPER Office Visit [facility] [address] [phone] Kev Moser MD [address] [place] [phone] 05/12/2024 11:30 AM COMMERCIAL HOUSEKEEPER Clinical Support [facility] [address] [phone] Nurse, [facility] documented as of this encounter Visit Diagnoses Diagnosis 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 documented in this encounter Additional Health Concerns Assessment Noted Time PHQ-9 Depression Total Score: 0 04/07/19 20 2:58 PM COMMERCIAL HOUSEKEEPER documented as of this encounter Care Teams Supervising Editor Trailer Relationship Specialty Start Date End Date Scott Oneill MD PCP - General Internal Medicine 04/29/17 Kev Prince DO Gastroenterology 04/29/17 12/09/22 Tavo Mishra MD [address] [place] [phone] Internal Medicine 04/29/17 Gilmer Barnard MD [address] [place] [phone] Consulting Physician Internal Medicine 08/28/17 4 documented as of this encounter
--- OUTSIDE RECORDS SUMMARY | 2024-04-04 01:32 | XMS_ITS | Encounter Summary ---
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 Gender Identity Not on file Sexual [...] st Contact Info) Description 04/07/2024 11:10 AM BOARDING SPECIALIST Lab [facility] [address] [phone] Lab, [facility] 04/07/2024 11:15 AM BOARDING SPECIALIST Clinical Support [facility] [address] [phone] Nurse, [facility] 05/12/2024 11:00 AM BOARDING SPECIALIST Lab [facility] [address] [phone] Lab, [facility] 05/12/2024 11:15 AM BOARDING SPECIALIST Office Visit [facility] [address] [phone] Kev Moser MD [address] [place] [phone] 05/12/2024 11:30 AM BOARDING SPECIALIST Clinical Support [facility] [address] [phone] Nurse, [facility] documented as of this encounter Visit Diagnoses Not on filedocumented in this encounter Additional Health Concerns Assessment Noted Time PHQ-9 Depression Total Score: 0 07/05/19 20 3:14 PM CDT documented as of this encounter Care Teams Manufacturing Millwright Relationship Specialty Start Date End Date Scott Oneill MD PCP - General Internal Medicine 04/29/17 Kev Prince DO Gastroenterology 04/29/17 12/09/22 Tavo Mishra MD [address] [place] [address] [phone] Internal Medicine 04/29/17 Gilmer Barnard MD [address] [place] [phone] Consulting Physician Internal Medicine 08/28/17 4 documented as of this encounter
--- OUTSIDE RECORDS SUMMARY | 2024-04-04 01:32 | XMS_ITS | Encounter Summary ---
Author Organization [facility] Address [address] [place] [address] Phone Care Team Providers Care Practice Lead Name Role Phone Scott Oneill MD Primary Care Provider Kev Prince DO Unavailable [phone] Tavo Mishra MD Unavailable [phone] Gilmer Barnard MD Unavailable [phone] Reason for Visit * Reason Comments Other Dispense pills Encounter Details Date Type Department Care Team (Latest Contact Info) Description 06/07/2019 1:45 PM CDT Clinical Support [facility] [address] [phone] Nurse, [facility] Other autoimmune hemolytic anemias (HCC); Iron deficiency [...] on file Legal Sex Male 3:42 PM FORENSIC SCIENTIST Gender Identity Not on file Sexual Orientation Not on file documented as of this encounter Progress Notes * Fe Lemos RN - 06/07/2019 1:45 PM CDT Dispensed 2 boxes of 5mg Eliquis (28 tabs total). Pt aware that this is only enough for 2 weeks. Will return to get additional boxes, prior to next OV. documented in this encounter Plan of Treatment Upcoming Encounters Date Type Department Care Team (Late st Contact Info) Description 04/07/2024 11:10 AM FORENSIC SCIENTIST Lab [facility] [address] [phone] Lab, [facility] 04/07/2024 11:15 AM FORENSIC SCIENTIST Clinical Support [facility] [address] [phone] Nurse, [facility] 05/12/2024 11:00 AM FORENSIC SCIENTIST Lab [facility] [address] [phone] Lab, [facility] 05/12/2024 11:15 AM FORENSIC SCIENTIST Office Visit [facility] [address] [phone] Kev Moser MD [address] [place] [phone] 05/12/2024 11:30 AM FORENSIC SCIENTIST Clinical Support [facility] [address] [phone] Nurse, [facility] documented as of this encounter Visit Diagnoses Diagnosis 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 documented in this encounter Additional Health Concerns Assessment Noted Time PHQ-9 Depression Total Score: 1 06/07/19 20 11:13 AM CDT documented as of this encounter Care Teams Practice Lead Relationship Specialty Start Date End Date Scott Oneill MD PCP - General Internal Medicine 04/29/17 Kev Prince DO Gastroenterology 04/29/17 12/09/22 Tavo Mishra MD [address] [place] [address] [phone] Internal Medicine 04/29/17 Gilmer Barnard MD [address] [place] [address] [phone] Consulting Physician Internal Medicine 08/28/17 4 documented as of this encounter
--- OUTSIDE RECORDS SUMMARY | 2024-04-04 01:32 | XMS_ITS | Encounter Summary ---
Author Organization [facility] Address [address] [place] [address] Phone Care Team Providers Care Candy Puller Name Role Phone Scott Oneill MD Primary Care Provider [phone] Kev Prince DO Unavailable [phone] Tavo Mishra MD Unavailable [phone] Gilmer Barnard MD Unavailable [phone] Reason for Visit * Reason Comments Follow-up Encounter Details Date Type Department Care Team (Late st Contact Info) Description 06/07/2019 11:45 AM CDT Office Visit [facility] [address] [phone] Kev Moser MD [address] [place] [phone] Iron deficiency anemia, unspecified iron deficiency anemia type (Primary Dx); Iron deficiency anemia due to sideropenic dysphagia; Other autoimmune hemolytic anemias (HCC); Myelofibrosis (HCC) Social History Tobacco Use Types [...] on file 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 Gender Identity Not on file Sexual Orientation Not on file documented as of this encounter Last Filed Vital Signs Vital Sign Reading Time Taken Comments Blood Pressure 142/78 06/07/2019 11:05 AM CDT Pulse 78 06/07/2019 11:05 AM CDT Temperature 36.9 ??C (98.4 ??F) 06/07/2019 1 1:05 AM CDT Respiratory Rate 18 06/07/2019 11:0 5 AM CDT Oxygen Saturation 97% 06/07/2019 11: 05 AM CDT Inhaled Oxygen Concentration - - Weight 101.5 kg (223 lb 12.8 oz) 2019 11:05 AM CDT Height 165.1 cm (5' 5 ) 06/07/2019 11:0 5 AM CDT Body Mass Index 37.24 06/07/2019 11:05 AM CDT documented in this encounter Progress Notes * Kev Moser MD - 06/07/2019 11:45 AM CDT Patient: Britton Nielsen Age: 64 y.o. : 1955 Encounter Dept: [facility] [place] Encounter Date: 06/07/2019 Care Team: Current Providers PCP: Scott Oneill MD Care Team Provider: Kev Prince DO Care Team Provider: Tavo Mishra MD Care Team Provider: Gilmer Barnard MD Encounter Provider: Kev Moser MD Referring Provider: not found Consulting Physician: Kev Moser MD HISTORY OF PRESENT ILLNESS: Britton Nielsen returns. He is doing stable. No headaches, double vision or shortness of breath. DIAGNOSIS: 1. Glomerulonephritis, sclerosing (renal biopsy 04/01/17). 2. Significant anemia with bleeding ulcer, chronic kidney disease, and patient is on Cytoxan with iron deficiency. 3. Recurrent bleeding ulcers. 4. Patient had a positive BRIANNA at an outside hospital. 5. Bilateral pulmonary emboli, bilateral lower extremity DVT (10/2017). PAST TREATMENT: 1. Gastroduodenal artery embolization at [facility] 05/2017. 2. Cytoxan 100 mg daily. 3. Bone marrow biopsy 11/03/17 with normocellular marrow and maturating trilineage hematopoiesis with minimal reticulin fibrosis. Normal karyotype and NGS study. CURRENT TREATMENT: 1. EPO 40,000 units q.4 to 8 weeks (poor response, stopped on 01/2019). 2. Imuran 50 mg daily. 3. Off prednisone per his graduation coach. 4. Intermittent IV iron. 5. Eliquis b.i.d. [...] lower extremity DVT (10/2017). PLAN: 1. Give Eliquis today. 2. Start valacyclovir seven days t.i.d. secondary to shingles on his back, approximately T9 dermatome. 3. Patient has been moving around his immunosuppression. He had a reaction to azathioprine. 4. Bone marrow biopsy negative in the past. 5. Continue to followup in four weeks. Hemoglobin stable. Holding on EPO for the time being. REVIEW OF SYSTEMS: See HPI; otherwise, 12-point [...] reviewed. Kev Moser MD, FACP/rmd Vitals: Vitals: 06/07/19 1105 BP: 142/78 BP Location: Right Arm BP Position: Sitting BP Cuff Size: Regular Pulse: 78 Resp: 18 Temp: 98.4 ??F (36.9 ??C) TempSrc: Temporal SpO2: 97% Weight: 223 lb 12.8 oz (101.5 kg) Height: 5' 5 (1.651 m) Body surface area is 2.16 meters squared. Body mass index is 37.24 kg/m??. Allergies: No Known Allergies PMH/SgH/FH/SH: Past [...] Last attempt to quit: 05/23/2011 Years since quittin.0 ??? Smokeless tobacco: Never Used Substance and [...] Current Medications: Outpatient Encounter Medications as of 06/07/2019 Medication Sig Dispense Refill ??? atorvastatin (LIPITOR) 20 MG Tablet Take 20 mg by mouth daily. ??? azaTHIOprine (IMURAN) 50 MG Tablet Take 200 mg by mouth. ??? Calcium Carb-Cholecalciferol (CALCIUM 600 + D PO) Take by mouth 2 times daily. ??? cyanocobalamin 1000 MCG Tablet Take 1 tablet by mouth daily 30 Tab 0 ??? ergocalciferol (VITAMIN D) 67010 UNIT Capsule Take 50,000 Units by mouth [...] facility-administered encounter medications on file as of 06/07/2019. Labs: No visits with results within 7 [...] 760 - 4,000 cells/uL Final ??? Absolute [place]bs Count 08/19/2018 256 160 - 1,200 cells/uL [...] st Contact Info) Description 04/07/2024 11:10 AM CARRIER OPERATOR Lab [facility] [address] [phone] Lab, [facility] 04/07/2024 11:15 AM CARRIER OPERATOR Clinical Support [facility] [address] [phone] Nurse, [facility] 05/12/2024 11:00 AM CARRIER OPERATOR Lab [facility] [address] [phone] Lab, [facility] 05/12/2024 11:15 AM CARRIER OPERATOR Office Visit [facility] [address] [phone] Kev Moser MD [address] [place] [phone] 05/12/2024 11:30 AM CARRIER OPERATOR Clinical Support [facility] [address] [phone] Nurse, [facility] documented as of this encounter Visit Diagnoses Diagnosis Iron deficiency anemia, unspecified iron deficiency anemia type- Primary 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 Myelofibrosis (HCC) Myelofibrosis documented in this encounter Additional Health Concerns Assessment Noted Time PHQ-9 Depression Total Score: 1 06/07/19 20 11:13 AM CDT documented as of this encounter Care Teams Candy Puller Relationship Specialty Start Date End Date Scott Oneill MD PCP - General Internal Medicine 04/29/17 Kev Prince DO Gastroenterology 04/29/17 12/09/22 Tavo Mishra MD [address] [place] [address] [phone] Internal Medicine 04/29/17 Gilmer Barnard MD [address] [place] [address] [phone] Consulting Physician Internal Medicine 08/28/17 4 documented as of this encounter
--- OUTSIDE RECORDS SUMMARY | 2024-04-04 01:39 | XMS_ITS | Encounter Summary ---
Author Organization [facility] Healthcare Address [address] [place] [address] Care Team Providers Care Digital Publishing Specialist Name Role Phone Scott Oneill MD Primary Care Provider [phone] Encounter Details Date Type Department Care Team (Latest Contact Info) Description 02/05/2024 12:35 PM PART TIME - 02/05/2024 11:59 PM PART TIME Hospital Encounter [facility] [address] [place] [address] Cough, unspecified type; Cough with hemoptysis Discharge Disposition: Discharge to home or self care Social History Tobacco Use Types Packs/Day Years Used Date Smoking Tobacco: Former Smokeless Tobacco: Never Alcohol Use Standard Drinks/Week Comments Yes 0 (1 standard drink = 0.6 oz pur e alcohol) 6 beers a year AUDIT-C Answer Date Recorded Q1: How often do you have a drink containing alc ohol? Monthly or less 06/08/2020 Q2: How many drinks containi ng alcohol do you have on a typical day when you are drinking? 1 or 2 06/08/2020 Q3: How often do you have si x or more drinks on one occasion? 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 Not on file Not on file Not on file documented as of this encounter Medications at Time of Discharge apixaban (ELIQUIS) 5 mg tablet Take 1 tablet (5 mg total) by mouth 2 (two) times a day atorvastatin (LIPITOR) 40 mg tablet Take 1 tablet (40 mg total) by mouth daily 06/11/2023 calcitRIOL (ROCALTROL) 0.25 mcg capsule TAKE 1 CAPSULE 3 TIMES WEEKLY TAKE AFTER DIALYSIS ON DIALYSIS DAYS calcium carbonate (TUMS) 500 mg (200 mg elemental calcium) chewable tablet Take 1 tablet/chew tab (500 mg total) by mouth calcium carbonate-vitamin D3 1500 mg (600 mg elemental) -200 units per tablet Take 1 tablet by mouth daily cyanocobalamin (Vitamin B-12) 1,000 mcg tabletIndications :Prevention of Vitamin B12 Deficiency Take 1 tablet (1,000 mcg total) by mouth daily cyclobenzaprine (FLEXERIL) 5 mg tabletIndications :Muscle spasms of both lower extremities Take 1 tablet (5 mg total) by mouth 2 (two) times a day as needed for muscle spasms (muscle pain) 09/10/2023 ferrous sulfate 325 mg (65 mg of elemental iron) tablet Take 1 tablet (325 mg total) by mouth daily 05/02/2023 furosemide (LASIX) 40 mg tablet Take 1 tablet (40 mg total) by mouth daily 03/27/2020 HYDROcodone-aceta minophen (NORCO) 5-325 mg per tablet Take by mouth every 6 (six) hours as needed 01/24/2024 irbesartan (AVAPRO) 300 mg tablet Take 1 tablet (300 mg total) by mouth daily 05/26/2023 labetaloL (NORMODYNE,TRANDA TE) 200 mg tablet Take 1 tablet (200 mg total) by mouth 2 (two) times a day 03/26/2020 mycophenolate mofetil (CELLCEPT) 500 mg tablet Take 1 tablet (500 mg total) by mouth 2 (two) times a day 60 tablet 3 02/05/2024 potassium chloride ER 20 mEq CR tablet Take 1 tablet (20 mEq total) by mouth 2 (two) times a day 04/06/2020 pregabalin (LYRICA) 50 mg capsule Take 1 capsule (50 mg total) by mouth 3 (three) times a day 01/21/2023 sodium bicarbonate 650 mg tablet Take 1 tablet (650 mg total) by mouth 2 (two) times a day tadalafiL (CIALIS) 20 mg tablet Take by mouth daily as needed 05/19/2021 traMADoL (ULTRAM) 50 mg tablet Take 1 tablet (50 mg total) by mouth every 6 (six) hours as needed for pain documented as of this encounter Discharge Disposition Disposition Code Departure Means Destination Discharge to home or self care documented in this encounter Plan of Treatment Not on file documented as of this encounter Procedures Procedure Name Priority Date/Time Associated Diagnosis Comments XR CHEST PA LATERAL 2 VIEWS Schedule Routine, Read Routine (OP Routine) 02/05/2024 12:47 PM PART TIME Cough, unspecified type Cough with hemoptysis documented in this encounter Results * X-ray chest 2 views (02/05/2024 12:47 PM PART TIME) Anatomical Region Laterality Modality Body, Chest N/A Computed Radiogr aphy 02/05/2024 1:34 PM PART TIME Impressions 02/05/2024 1:44 PM PART TIME Comparison is made to chest radiograph from 05/22/[address] from 02/05/2024 Median sternotomy wires are aligned and intact. ??Embolization coils overlie the upper abdomen. No significant change in diffuse interstitial opacities consistent with fibrosis better evaluated on same day .Small bilateral pleural effusions. ??No pneumothorax. ??Cardiomediastinal silhouette is stable. Dictated by: Krzysztof Goodwin MD The radiology attending physician has personally reviewed this study, and had reviewed and/or edited this written report and agrees with it. Electronically signed by: Neisha Franks M.D. Narrative 02/05/2024 1:44 PM PART TIME EXAMINATION: 2 view chest radiograph Procedure Note Neisha Franks MD - 02/05/2024 EXAMINATION: 2 view chest radiograph IMPRESSION: Comparison is made to chest radiograph from 05/22/[address] from 02/05/2024 Median sternotomy wires are aligned and intact. Embolization coils overlie the upper abdomen. No significant change in diffuse interstitial opacities consistent with fibrosis better evaluated on same day .Small bilateral pleural effusions. No pneumothorax. Cardiomediastinal silhouette is stable. Dictated by: Krzysztof Goodwin MD The radiology attending physician has personally reviewed this study, and had reviewed and/or edited this written report and agrees with it. Electronically signed by: Neisha Franks M.D. Nael Chacko MD IMG XR PROCEDURES Final Result documented in this encounter Visit Diagnoses Diagnosis Cough, unspecified type Cough with hemoptysis documented in this encounter Care Teams Digital Publishing Specialist Relationship Specialty Start Date End Date Scott Oneill MD PCP - General Internal Medicine 04/27/20 documented as of this encounter
--- OUTSIDE RECORDS SUMMARY | 2024-04-04 01:39 | XMS_ITS | Encounter Summary ---
Author Organization [facility] Address [address] [place] [address] Care Team Providers Care Brim Presser Name Role Phone Scott Oneill MD Primary Care Provider [phone] Reason for Visit * Reason Comments Establish Care Encounter Details Date Type Department Care Team (Late st Contact Info) Description 05/02/2017 10:00 AM CASTING COORDINATOR Office Visit [facility] Oncology and Hematology - [place] [address] [facility] [address] [place] [address] Micheal Burns MD [address] [facility] [address] [place] [address] Anemia, chronic disease (Primary Dx); Anemia of chronic renal failure, stage 4 (severe); Acute hemolytic anemia; Glomerulonephritis Social History Tobacco Use Types Packs/Day Years Used Date Smoking Tobacco: Former Cigarettes 1 38 0 05/02/1973 - 05/02/2011 Alcohol Use Standard Drinks/Week Comments No 0 (1 standard drink = 0.6 oz pur e alcohol) Sex and Gender Information Value Date Recorded Sex Assigned at Not on file Gender Identity Not on file Sexual Orientation Not on file documented as of this encounter Last Filed Vital Signs Vital Sign Reading Time Taken Comments Blood Pressure 146/58 05/02/2017 10:20 AM CASTING COORDINATOR Pulse 103 05/02/2017 10:20 AM CASTING COORDINATOR Temperature 36.9 ??C (98.5 ??F) 05/02/2017 10:[address] Respiratory Rate 18 05/02/2017 10:20 AM CASTING COORDINATOR Oxygen Saturation - - Inhaled Oxygen Concentration - - Weight 97.1 kg (214 lb) 05/02/2017 10:20 AM CASTING COORDINATOR Height 166.4 cm (5' 5.5 ) 05/02/2017 10:20 AM CS T Body Mass Index 35.07 05/02/2017 10:20 AM CASTING COORDINATOR documented in this encounter Progress Notes * Micheal Burns MD - 05/02/2017 11:17 AM CST HEMATOLOGY / ONCOLOGY PROGRESS NOTE Patient Identification: Name: Britton Nielsen Age: 62 y.o. Sex: male : 1955 Subjective: HPI This is a pleasant slightly obese 62-year-old male who was initially seen in consultationin the hospital on April 25 for anemia. Patient was recently diagnosed with glomerulonephritis and was started on Cytoxan along with prednisone. He also has history of hypertension and hyperlipidemia along with sleep apnea. He came into the hospital with lightheadedness and dizziness. Labs showedhemoglobin of 6.4. Patient was admitted to the hospital in February 2017 with acute renal injury and renal biopsy was done on April 01. He is also complaining of dyspnea on exertion with chest discomfort. He noticed to have dark stool or the last week. Patient had endoscopy done on April 25 thatshowed due to an ulcer with signs of bleeding. He received 3 units of packed red blood cells in thehospital with improvement in the hemoglobin. His hemoglobin was 9.2 on discharge from the hospital on April 26. Patient also received Procrit injection in the hospital. He is currently taking prednisone 15 mg twice a day along with Cytoxan 100 mg daily. Interval History: Patient now came into the office for follow-up. Review of system Constitutional: No fever; no night sweats; no anorexia; no weight loss; complain of some tiredness and fatigue Respiratory: No shortness of breath; no pleuritic chest pain; no cough; no hemoptysis Cardiac: No cardiac-like chest pain; no palpitations; no orthopnea; no PND; no GOLDSTEIN GI: No abdominal pain; no nausea; no vomiting; no diarrhea; no hematochezia; complain of dark stools but has been getting better. Musculosketetal: no bone pain; no arthralgia; no joint swelling; no myalgia; Neuro: No headache; no change in vision; no sensory changes; no muscle weakness; no confusion; no seizures Ext no edema Objective: Vital signs in last 24 hours: As per nursing note Exam: Gen: NAD, patient looks slightly pale. Lungs: Clear, no wheezing Cardiac: S1 and S2 without murmurs or gallops Abd: Soft, tender, no hepatomegally, no masses Extr: 2+ bilateral pitting edema Scheduled Meds:@MEDSSCHEDULED@ Continuous Infusions:@MEDSINFUSIONS@ Data Review: [facility] Labs from [facility] showed WBC 5.4 hemoglobin 6.2 hematocrit 19 MCV 91.8 platelet 134,000 potassium 3.8 creatinine 3.4 calcium 7.8 total protein 5.2. @IMAGEIMP@ Assessment: Plan: Patient Active Problem List Diagnosis Date Noted ??? Anemia of chronic renal failure, stage 4 (severe) 05/02/2017 ??? Acute hemolytic anemia 05/02/2017 ??? Glomerulonephritis 05/02/2017 Multifactorial anemia with recently diagnosis of acute glomerulonephritis is status post kidney biopsy done on April 01. Patient has been taking Cytoxan 100 mg daily along with prednisone 50 mg twice a day. His anemia is likely secondary to anemia secondary to Cytoxan along with chronic kidney disease. Patient was also diagnosed with GI bleed and had colonoscopy done along with cauterization. Patient was started on proton pump inhibitor. His cycle complain of some dark stool but has been improving according to his description. Other labs done in the hospital showed positive Liana test and elevated LDH. His haptoglobin came back normal. I have reviewed labs from today that showed hemoglobin of 6.2. I will transfuse him 2 units of packed red blood cells today. I have also discussed this case with Dr. Gilmer Barnard in nephrology in detail. Our plan will be to stop Cytoxan this could be myelosuppressive and may be contributing to worsening of anemia. We will start him on Rituxan injection that he will receive every 2 weeks ??2. Anemia of chronic renal failure. I will also start him on Procrit 40,000 units on biweekly basis. I've also recommended him to start taking ferrous sulfate 325 mg twice a day. Glomerulonephritis. I have instructed him to stop taking Cytoxan. Patient will also taper prednisone 10 mg twice a day. He will follow-up with Dr. Barnard next week. My plan is to start him on Rituxan next week as well. ? 05/02/2017 Micheal Burns MD Cc: Gilmer Barnard M.D. ING COORDINATOR documented in this encounter Plan of Treatment Not on file documented as of this encounter Results * LACTATE DEHYDROGENASE (06/06/2017) Blood Micheal Burns MD CHEMISTRY ORDERABLES Performing Organization Address [facility] de Phone Number EXTERNAL LAB * BASIC METABOLIC PANEL (06/06/2017) Blood Micheal Burns MD CHEMISTRY ORDERABLES Performing Organization Address [facility] de Phone Number EXTERNAL LAB * CBC WITHOUT DIFFERENTIAL (06/06/2017) Blood Micheal Burns MD HEMATOLOGY ORDERABLE S Performing Organization Address [facility] de Phone Number EXTERNAL LAB * FERRITIN (06/06/2017) Blood Micheal Burns MD CHEMISTRY ORDERABLES Performing Organization Address [facility] de Phone Number EXTERNAL LAB * IRON, TIBC, AND PERCENT SATURATION (05/19/2017) Blood Micheal Burns MD CHEMISTRY ORDERABLES Performing Organization Address [facility] de Phone Number EXTERNAL LAB documented in this encounter Visit Diagnoses Diagnosis Anemia, chronic disease- Primary Anemia of other chronic disease Anemia of chronic renal failure, stage 4 (severe) Acute hemolytic anemia Acquired hemolytic anemia, unspecified Glomerulonephritis Nephritis and nephropathy, not specified as acute or chronic, 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 documented in this encounter Care Teams Brim Presser Relationship Specialty Start Date End Date Scott Oneill MD [address] [phone] PCP - General Internal Medicine 05/02/17 documented as of this encounter
--- OUTSIDE RECORDS SUMMARY | 2024-04-04 01:39 | XMS_ITS | Encounter Summary ---
Author Organization [facility] Address [address] [place] [address] Care Team Providers Care Beef Cattle Grazier Name Role Phone Scott Oneill MD Primary Care Provider [phone] Encounter Details Date Type Department Care Team (Late st Contact Info) Description 05/15/2017 Chart Note [facility] Oncology and Hematology [address] [facility] [address] [place] [address] Micheal Burns MD [address] [facility] [address] [place] [address] Social History Tobacco Use Types Packs/Day Years [...] as of this encounter Progress Notes * Linda Mary - 05/15/2017 2:[address] Burns placed orders for Rituxin and Epogen for patient - called for prior authorization with [facility] - [facility] was advised [facility] was out ot network and patient could only be seen by [facility] or [facility]. Called patient and questioned which facility would he [facility] Krishan Moser MD to refer patient for care Patient advised and agreed to transfer F DEVELOPMENT COORDINATOR RN documented in this encounter Plan of Treatment Not on file documented as of this encounter Visit Diagnoses Not on filedocumented in this encounter Care Teams Beef Cattle Grazier Relationship Specialty Start Date End Date Scott Oneill MD [address] [phone] PCP - General Internal Medicine 05/02/17 documented as of this encounter
--- OUTSIDE RECORDS SUMMARY | 2024-04-04 01:39 | XMS_ITS | Encounter Summary ---
Author Organization [facility] Address [address] [place] [address] Phone Care Team Providers Care Pulmonary Specialist Name Role Phone Scott Oneill MD Primary Care Provider [phone] Encounter Details Date Type Department Care Team (Latest Contact Info) Description 03/01/2024 Orders Only [facility] Scanning, Provider Social History Tobacco Use Types Packs/Day Years [...] on file Legal Sex Male 1:23 AM [employer]CHOOL L[employer]CH MONITOR Gender Identity Male 12/24/2023 11:25 AM CDT Sexual Orientation Straight 12/24/2023 11 :25 AM CDT 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 Start Date Job End Date [employer], 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, 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
--- OUTSIDE RECORDS SUMMARY | 2024-04-04 01:39 | XMS_ITS | Encounter Summary ---
Author Organization [facility] Address [address] [place] [address] Care Team Providers Care [employer] Programmer Name Role Phone Scott Oneill MD Primary Care Provider [phone] Reason for Visit * Reason Onset Date Comments hospital 05/13/2017 called in s tated patient admitted to [facility] [id number] Encounter Details Date Type Department Care Team (Late st Contact Info) Description 05/13/2017 Telephone [facility] Oncology and Hematology - [place] [address] [facility] [address] [place] [address] Micheal Burns MD [address] [facility] [address] [place] [address] hospital ( called in stated patient admitted to [facility] [id number]) Social History Tobacco Use Types Packs/Day Years [...] on filedocumented in this encounter Care Teams [employer] Mainframe Systems Programmer Relationship Specialty Start Date End Date Scott Oneill MD [address] [facility] [address] [place] [phone] PCP - General Internal Medicine 05/02/17 documented as of this encounter
--- OUTSIDE RECORDS SUMMARY | 2024-04-04 01:39 | XMS_ITS | Encounter Summary ---
Author Organization [facility] Address [address] [place] [address] Care Team Providers Care Cardiac Cath Rn Name Role Phone Scott Oneill MD Primary Care Provider [phone] Encounter Details Date Type Department Care Team (Late st Contact Info) Description 05/02/2017 Orders Only [facility] Oncology and Hematology - [place] [address] [facility] [address] [place] [address] Micheal Burns MD [address] [facility] [address] [place] [address] Social History Tobacco Use Types [...] Priority Date/Time Associated Diagnosis Comments CBC WITH DIFFERENTIAL Routine 05/02/2017 CBC WITH DIFFERENTIAL Routine 05/02/2017 COMPREHENSIVE METABOLIC PANEL Routine 05/02/2017 COMPREHENSIVE METABOLIC PANEL Routine 05/02/2017 documented in this encounter Results * CBC WITH DIFFERENTIAL (05/02/2017) Blood Micheal Burns MD HEMATOLOGY ORDERABLE S [facility] * COMPREHENSIVE METABOLIC PANEL (05/02/2017) Blood Micheal Burns MD CHEMISTRY ORDERABLES Performing Organization Address [facility] Co de Phone Number [facility] * COMPREHENSIVE METABOLIC PANEL (05/02/2017) Blood Micheal Burns MD CHEMISTRY ORDERABLES Performing Organization Address [facility] Co de Phone Number [facility] * CBC WITH DIFFERENTIAL (05/02/2017) Blood Micheal Burns MD HEMATOLOGY ORDERABLE S Performing Organization Address [facility] Co de Phone Number [facility] documented in this encounter Visit Diagnoses Not on filedocumented in this encounter Care Teams Cardiac Cath Rn Relationship Specialty Start Date End Date Scott Oneill MD [address] [phone] PCP - General Internal Medicine 05/02/17 documented as of this encounter
--- OUTSIDE RECORDS SUMMARY | 2024-04-04 01:39 | XMS_ITS | Referral Summary ---
Author Organization [facility] [address] Address [address] [place] [address] Care Team Providers Care Publicity Writer Name Role Phone Scott Oneill MD Primary Care Provider Encounters Date Type Department Care Team Description 03/17/2024 3:30 PM PATTERN MARKING SUPERVISOR Office Visit [facility] Rheumatology [address] [facility] 5th [place] [address] [place] [address] Popping of left knee joint (Primary Dx); Chronic SI joint pain; Low back pain, unspecified back pain laterality, unspecified chronicity, unspecified whether sciatica present 03/05/2024 Documentation [facility] Pulmonary [address] [facility] [address] [place] [address] [place] [id number] Marce Bernal MD Labs Only 03/05/2024 Telephone [facility] Pulmonary [address] [facility] 8th [place] [address] [place] [phone] Margret Cobb CMA 03/01/2024 Orders Only [facility] Scanning, Provider 02/11/2024 Documentation [facility] Pulmonary [address] [facility] 8th [place] [address] [place] [id number] Marce Bernal MD multidisciplinary conference 02/11/2024 Telephone [facility] Pulmonary [address] [facility] 8th [place] [address] [place] [phone] Margret Cobb CMA 02/10/2024 Documentation [facility] Pulmonary [address] [facility] [address] [place] [address] [place] [address] Polly Paulino, [place] 02/10/2024 Orders Only [facility] Pulmonary [address] [facility] [address]th [place] [address] [place] [address] Marce Bernal MD SOB (shortness of breath) (Primary Dx); Pulmonary hypertension (HCC); Interstitial lung disease (CMS/HCC) (HCC) 02/05/2024 12:35 PM PATTERN MARKING SUPERVISOR - 02/05/2024 11:59 PM PATTERN MARKING SUPERVISOR Hospital Encounter [facility] ([facility] [address] [place] [address] Cough, unspecified type; Cough with hemoptysis Discharge Disposition: Discharge to home or self care 02/05/2024 11:49 AM PATTERN MARKING SUPERVISOR - 02/05/2024 11:59 PM PATTERN MARKING SUPERVISOR Hospital Encounter [facility] ([facility]) [address] [place] [address] Marce Bernal MD Microscopic polyangiitis (HCC) Discharge Disposition: Discharge to home or self care 02/05/2024 3:00 PM PATTERN MARKING SUPERVISOR Office Visit [facility] Pulmonary [address] [facility] [address]th [place] [address] [place] [address] Marce Bernal MD Microscopic polyangiitis (HCC) (Primary Dx); Interstitial lung disease (CMS/HCC) (HCC); Stage 3b chronic kidney disease (HCC); Immunosuppression (HCC); Chronic kidney disease, stage IV (severe) (CMS/HCC) (HCC); 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); Morbid (severe) obesity due to excess calories (HCC) 02/05/2024 12:56 PM PATTERN MARKING SUPERVISOR - 02/05/2024 11:59 PM PATTERN MARKING SUPERVISOR Hospital Encounter [facility] Pulmonary [address] [address] Microscopic polyangiitis (HCC) Discharge Disposition: Discharge to home or self care 02/02/2024 10:45 AM PATTERN MARKING SUPERVISOR Office Visit [facility] [address] [facility] [address] [place] [phone] Kathrin Austin MD S/P CABG x 3 (Primary Dx); Mixed hyperlipidemia; Hypertension secondary to other renal disorders; Family history of early CAD; GOLDSTEIN (dyspnea on exertion); Chronic deep vein thrombosis (DVT) of proximal vein of lower extremity, unspecified laterality (HCC); Stage 3b chronic kidney disease (HCC); Interstitial lung disease (CMS/HCC) (HCC) 01/21/2024 Telephone [facility] Surgery [id number] [place] [address] Medical Office Building [address] [address] Radhacarlita Rocío DEVEN Leg Pain from Last 3 Months Allergies No known active allergies Medications potassium chloride ER 20 mEq CR tablet Take 1 tablet (20 mEq total) by mouth 2 (two) times a day 1 Active furosemide (LASIX) 40 mg tablet Take 1 tablet (40 mg total) by mouth daily 0 Active labetaloL (NORMODYNE,TRAND ATE) 200 mg tablet Take 1 tablet (200 mg total) by mouth 2 (two) times a day 0 Active apixaban (ELIQUIS) 5 mg tablet Take 1 tablet (5 mg total) by mouth 2 (two) times a day Active aspirin 81 mg enteric coated tablet Take 1 tablet (81 mg total) by mouth daily 1 Active tadalafiL (CIALIS) 20 mg tablet Take by mouth daily as needed 2 Active pregabalin (LYRICA) 50 mg capsule Take 1 capsule (50 mg total) by mouth 3 (three) times a day 3 Active calcium carbonate-vitami n D3 1500 mg (600 mg elemental) -200 units per tablet Take 1 tablet by mouth daily Active cyanocobalamin (Vitamin B-12) 1,000 mcg tabletIndication s:Prevention of Vitamin B12 Deficiency Take 1 tablet (1,000 mcg total) by mouth daily Active sodium bicarbonate 650 mg tablet Take 1 tablet (650 mg total) by mouth 2 (two) times a day Active ferrous sulfate 325 mg (65 mg of elemental iron) tablet Take 1 tablet (325 mg total) by mouth daily 4 Active calcium carbonate (TUMS) 500 mg (200 mg elemental calcium) chewable tablet Take 1 tablet/chew tab (500 mg total) by mouth Active traMADoL (ULTRAM) 50 mg tablet Take 1 tablet (50 mg total) by mouth every 6 (six) hours as needed for pain Active irbesartan (AVAPRO) 300 mg tablet Take 1 tablet (300 mg total) by mouth daily 4 Active atorvastatin (LIPITOR) 40 mg tablet Take 1 tablet (40 mg total) by mouth daily 4 Active cyclobenzaprine (FLEXERIL) 5 mg tabletIndication s:Muscle spasms of both lower extremities Take 1 tablet (5 mg total) by mouth 2 (two) times a day as needed for muscle spasms (muscle pain) 4 Active calcitRIOL (ROCALTROL) 0.25 mcg capsule TAKE 1 CAPSULE 3 TIMES WEEKLY TAKE AFTER DIALYSIS ON DIALYSIS DAYS Active HYDROcodone-acet aminophen (NORCO) 5-325 mg per tablet Take by mouth every 6 (six) hours as needed 4 Active mycophenolate mofetil (CELLCEPT) 500 mg tablet Take 1 tablet (500 mg total) by mouth 2 (two) times a day 60 tablet 3 4 Active azithromycin (ZITHROMAX) 250 mg tablet TAKE 2 TABLETS BY MOUTH ON DAY 1, AND THEN TAKE 1 TABLET BY MOUTH ONCE A DAY ON DAY 2 THROUGH DAY 5 4 Active benzonatate (TESSALON) 200 mg capsule TAKE 1 CAPSULE BY MOUTH THREE TIMES DAILY NEEDED 4 Active methylPREDNISolo ne (MEDROL DOSEPACK) 4 mg Dosepack TAKE BY MOUTH DIRECTED ON INSIDE OF PACKAGE 4 Active Active Problems Problem Noted Date Diagnosed Date Immunosuppression 02/05/2024 Chronic kidney disease, stage IV (severe) (CMS/H CC) 02/05/2024 Neuropathy in vasculitis and connective tissue d isease 02/05/2024 Pain in both lower extremities 09/09/2023 GOLDSTEIN (dyspnea on exertion) 09/09/2023 High risk medication use 09/09/2023 Long-term use of immunosuppressant medication Interstitial lung disease (CMS/HCC) 08/01/2023 Microscopic polyangiitis 05/22/2023 Morbid (severe) obesity due to excess calories 0 04/29/2022 BMI 35.0-35.9,adult 07/02/2021 S/P CABG x 3 06/19/2020 Stage 3b chronic kidney disease 05/04/2020 Family history of early CAD 05/04/2020 Gastrointestinal hemorrhage associated with pept ic ulcer 05/04/2020 Chronic deep vein thrombosis (DVT) of proximal vein of lower extremity 05/04/2020 Mixed hyperlipidemia 05/04/2020 Hypertension Resolved Problems Problem Noted Date Diagnosed Date Resolved Date Angina pectoris syndrome (CMS/HCC) 05/04/2020 10/26/2020 Social History Tobacco Use Types Packs/Day Years Used Date Smoking Tobacco: Former Smokeless Tobacco: Never Tobacco Cessation:Counseling Given: Not Answered Alcohol Use Standard Drinks/Week Comments Yes 0 [...] on file Legal Sex Male 1:23 AM PATTERN MARKING SUPERVISOR Gender Identity Male 12/24/2023 11:25 AM CDT Sexual Orientation Straight 12/24/2023 11 :25 AM CDT 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 Start Date Job End Date [employer], 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, 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 Not on file Not on file Not on file Last Filed Vital Signs Vital Sign Reading Time Taken Comments Blood Pressure 165/75 03/17/2024 3:28 PM PATTERN MARKING SUPERVISOR Pulse 56 03/17/2024 3:28 PM PATTERN MARKING SUPERVISOR Temperature 36.6 ??C (97.8 ??F) 03/17/2024 3:28 PM CS T Respiratory Rate 18 02/05/2024 2:17 PM PATTERN MARKING SUPERVISOR Oxygen Saturation 97% 03/17/2024 3:28 PM PATTERN MARKING SUPERVISOR Inhaled Oxygen Concentration - - Weight 105.6 kg (232 lb 12.8 oz) 03/17/2024 3:28 PM PATTERN MARKING SUPERVISOR Height 166.4 cm (5' 5.5 ) 03/17/2024 3:28 PM PATTERN MARKING SUPERVISOR Body Mass Index 38.15 03/17/2024 3:28 PM PATTERN MARKING SUPERVISOR Plan of Treatment Not on file Procedures Procedure Name Priority Date/Time Associated Diagnosis Comments SCAN - LABS 03/01/2024 PULMONARY FUNCTION TEST (PFT) Routine 02/05/2024 1:57 PM PATTERN MARKING SUPERVISOR Microscopic polyangiitis (HCC) XR CHEST PA LATERAL 2 VIEWS Schedule Routine, Read Routine (OP Routine) 02/05/2024 12:47 PM PATTERN MARKING SUPERVISOR Cough, unspecified type Cough with hemoptysis CT CHEST HIGH RESOLUTION WO CONTRAST Routine 02/05/2024 12:22 PM PATTERN MARKING SUPERVISOR Microscopic polyangiitis (HCC) POCT LIPID PANEL Routine 02/02/2024 11:1 8 AM PATTERN MARKING SUPERVISOR Mixed hyperlipidemia CREATINE KINASE (CK), TOTAL Routine 01/19/2024 Interstitial lung disease (CMS/HCC) (HCC) High risk medication use ALDOLASE Routine 01/19/2024 Interstitial lung disease (CMS/HCC) (HCC) High risk medication use CRP (ACUTE PHASE) Routine 01/19/2024 Interstitial lung disease (CMS/HCC) (HCC) High risk medication use from Last 3 Months Results * SCAN - LABS (03/01/2024) us Provider Scanning Final Result * Pulmonary Function Test - (02/05/2024 1:57 PM PATTERN MARKING SUPERVISOR) FVC PRE 2.39 L [facility] FVC %PRE PRED 67 % [facility] FEV1 PRE 2.10 L [facility] FEV1 %PRE PRED 77 % [facility] FEV1/FVC PRE 88.2 % [facility] DLCO PRE 6.9 ml/min/mmH g [facility] DLCO %PRE PRED 31 % [facility] Anatomical Region Laterality Modality PFT 02/05/2024 1:40 PM PATTERN MARKING SUPERVISOR Narrative 02/06/2024 5:40 PM PATTERN MARKING SUPERVISOR Table formatting from the original result was not included. [facility] Division of Pulmonary & Critical Care Medicine [address] [place] [address]; [place] [address]; [place], [place] ??[address]; [phone] Pulmonary Function Laboratory Pulmonary Stress Test Simple/Oxygen Assessment Patient: Britton Nielsen Date: 02/05/2024 : 1955 Ht: 65 inches Wt: 232 lbs Time (min) Distance (ft)/ [place] O2 L/M SpO2 HR Brenton* BP FEV1 % Pred Rest: ??RA 99 56 0 174/64 2.08 76 % ? Walk/Bike: 1 ??RA 98 68 0 ? 2 ??RA 95 75 0 ? 3 ??RA 96 76 0 ? 4 ??RA 95 79 0 ? 5 ??RA 94 79 0 ? 6 min 0 sec ??RA 95 79 0 ? Recovery: 1 ??RA 98 68 0 167/62 2.10 77% 3 ??RA 99 60 0 ?*Brenton rate of perceived exertion (1-10 dyspnea scale) ??Abdulaziz, CHEST 2003; 123:1408 Walk Test Summary: Six Minute Walk Distance: 1330 ft Six-minute Walk Work [distance (m) x body wt (kg)]: 42,581 kg.m (normal >60,000kg.m) Oxygen required to maintain SpO2 greater than 90% during six minutes of walkin L/M Comments: Patient complained of hip pain 5 minutes into the test. Interpretation: Breathing room air, SpO2 is normal at rest and during exercise sufficient to increase pulse, SpO2 falls but remains normoxemic . On this basis, SpO2 is adequate at rest breathing room air and while walking breathing room air. This level of exercise is associated with no significant change of FEV1. ?? By signing this report, the attending pulmonary physician certifies that he/she has personally reviewed and interpreted the graphic and numerical data associated with this pulmonary function study and has reviewed and /or edited a preliminary draft report and agrees with the written final report. PFT performed at:->[facility] Adult PFT Lab- [facility] Procedure:->Spirometry Procedure:->DLCO Procedure:->Oxygen Assessment Titration DLCO:->Spirometry Pulmonary Function Test Interpretation SPIROMETRY: The FEV1 and FVC are reduced in a pattern suggestive of a restrictive abnormality. The inspiratory loop is normal. DLCO: The diffusing capacity corrected for hemoglobin level (DLCO ADJ) is severely decreased. A decreased diffusing capacity may be due to loss of pulmonary capillary surface area. Causes include pulmonary fibrosis (altered V/Q relationship), pulmonary vascular disease, emphysema, or interstitial pneumonitis. Impression: There is a mild restrictive ventilatory defect. However, measurement of lung volumes is suggested to confirm this if clinically indicated. There is a severe impairment of alveolar gas exchange by DLCO. Compared with most recent study, there has been no significant interval change. The attending pulmonary physician certifies a physician presence in the [facility] during the administration of aerosolized bronchodilator. The attending pulmonary physician certifies that he/she has reviewed and interpreted the graphic and numerical data of this pulmonary function study and agrees with the written final report. The lower limit of normal for PaO2 and %HbO2 is age dependent. However, the [facility] Pulmonary Function Laboratory defines hypoxemia as a PaO2 <56 mm Hg or a %HbO2 <89%. us Marce Bernal MD PFT ORDERABLES Final Result * X-ray chest 2 views (02/05/2024 12:47 PM PATTERN MARKING SUPERVISOR) Anatomical Region Laterality Modality Body, Chest N/A Computed Radiogr aphy 02/05/2024 1:34 PM PATTERN MARKING SUPERVISOR Impressions 02/05/2024 1:44 PM PATTERN MARKING SUPERVISOR Comparison is made to chest radiograph from [...] Neisha Franks M.D. Narrative 02/05/2024 1:44 PM PATTERN MARKING SUPERVISOR EXAMINATION: 2 view chest radiograph Procedure Note [...] it. Electronically signed by: Neisha Franks M.D. us Nael Chacko MD IMG XR PROCEDURES Final Result * CT Chest High Resolution WO Contrast (02/05/2024 12:22 PM PATTERN MARKING SUPERVISOR) Anatomical Region Laterality Modality Chest N/A Computed Tomogra phy 02/05/2024 12:5 1 PM PATTERN MARKING SUPERVISOR Impressions 02/05/2024 12:51 PM PATTERN MARKING SUPERVISOR Diffuse fibrotic interstitial lung disease throughout the lungs with a pattern that is inconsistent with usual interstitial pneumonia. This could be due to pulmonary hemosiderosis with residual interstitial fibrosis that has progressed since the prior study. Alternatively disc could represent a nonspecific interstitial fibrosis throughout the lungs due to past organized pneumonia or autoimmune disease. ??Relative to the prior exam the groundglass opacities have decreased and the fibrosis has progressed. Electronically signed by: Courtney Shin M.D. Narrative 02/05/2024 12:51 PM PATTERN MARKING SUPERVISOR EXAMINATION: ??Computed tomography of the chest high-resolution without intravenous contrast HISTORY: 68-year-old male with history of microscopic polyangiitis TECHNIQUE: ??Transaxial computed tomographic images of the chest were obtained without intravenous contrast according to the chest high-resolution protocol. COMPARISON: Chest CT of 04/03/[address] of the abdomen and pelvis 02/05/2023 and 07/26/2019 FINDINGS: ?? There are reticulations with mild groundglass opacity, traction bronchiectasis and mild architectural distortion involving both lungs. ??Although worse in the periphery and also extends centrally to the bronchovascular bundles. ??It is slightly worse in bilateral upper lobes, especially in the anterior segments. ??It also involves the basal segments of bilateral lower lobes. ??The distribution of the fibrotic interstitial lung disease is not favorable for usual interstitial pneumonia pattern. ??These findings represent nonspecific interstitial fibrosis these findings which could be seen in chronic hemosiderosis due to repeated pulmonary hemorrhage, especially in the setting of vasculitis. ??Alternatively this could represent fibrotic interstitial lung disease due to a nonspecific cause. Relative to CT of 04/03/2023 groundglass opacities have improved which could have been due to pulmonary hemorrhage organizing pneumonia. ??They have been replaced by reticulations with slight worsening traction bronchiectasis consistent with worsening interstitial fibrosis with a prior study. ?? When comparing the lung bases to the prior abdominal CT exams of 02/05/2023 and 07/25/2021 the fibrosis has progressed. There are no pulmonary nodules. Exhalation images demonstrate mild subsegmental air trapping throughout the lungs which is likely due to coexisting mild small airway disease. There is no lymphadenopathy in the chest. ??The heart is nonenlarged. Extensive atherosclerotic calcification of the coronary arteries and of the aorta noted. ??Postsurgical changes of left internal mammary artery bypass graft surgery noted. ??There is mild diffuse esophageal wall thickening which is unchanged. ??The included portions of the upper abdomen demonstrate atherosclerotic calcification of the aorta. Bone windows demonstrate no lytic or blastic osseous lesions. Procedure Note Courtney Shin MD - 02/05/2024 EXAMINATION: Computed tomography of the chest high-resolution without intravenous contrast HISTORY: 68-year-old male with history of microscopic polyangiitis TECHNIQUE: Transaxial computed tomographic images of the chest were obtained without intravenous contrast according to the chest high-resolution protocol. COMPARISON: Chest CT of 04/03/[address] of the abdomen and pelvis 02/05/2023 and 07/26/2019 FINDINGS: There are reticulations with mild groundglass opacity, traction bronchiectasis and mild architectural distortion involving both lungs. Although worse in the periphery and also extends centrally to the bronchovascular bundles. It is slightly worse in bilateral upper lobes, especially in the anterior segments. It also involves the basal segments of bilateral lower lobes. The distribution of the fibrotic interstitial lung disease is not favorable for usual interstitial pneumonia pattern. These findings represent nonspecific interstitial fibrosis these findings which could be seen in chronic hemosiderosis due to repeated pulmonary hemorrhage, especially in the setting of vasculitis. Alternatively this could represent fibrotic interstitial lung disease due to a nonspecific cause. Relative to CT of 04/03/2023 groundglass opacities have improved which could have been due to pulmonary hemorrhage organizing pneumonia. They have been replaced by reticulations with slight worsening traction bronchiectasis consistent with worsening interstitial fibrosis with a prior study. When comparing the lung bases to the prior abdominal CT exams of 02/05/2023 and 07/25/2021 the fibrosis has progressed. There are no pulmonary nodules. Exhalation images demonstrate mild subsegmental air trapping throughout the lungs which is likely due to coexisting mild small airway disease. There is no lymphadenopathy in the chest. The heart is nonenlarged. Extensive atherosclerotic calcification of the coronary arteries and of the aorta noted. Postsurgical changes of left internal mammary artery bypass graft surgery noted. There is mild diffuse esophageal wall thickening which is unchanged. The included portions of the upper abdomen demonstrate atherosclerotic calcification of the aorta. Bone windows demonstrate no lytic or blastic osseous lesions. IMPRESSION: Diffuse fibrotic interstitial lung disease throughout the lungs with a pattern that is inconsistent with usual interstitial pneumonia. This could be due to pulmonary hemosiderosis with residual interstitial fibrosis that has progressed since the prior study. Alternatively disc could represent a nonspecific interstitial fibrosis throughout the lungs due to past organized pneumonia or autoimmune disease. Relative to the prior exam the groundglass opacities have decreased and the fibrosis has progressed. Electronically signed by: Courtney Shin M.D. Marce Bernal MD IMG CT PROCEDURES Final Resu lt * POCT lipid panel (02/02/2024 11:18 AM PATTERN MARKING SUPERVISOR) Cholesterol, POC 155 mg/dL Comment:GLU = 100 HDL, POC 30 mg/dL Triglycerides, POC 191 mg/dL LDL Cholesterol POC 86 mg/dL Chol/HDL Ratio, POC 2.9 Non-HDL Cholesterol, POC 125 mg/dL Cholesterol Total, POC 155 mg/dL Capillary blood 02/02/2024 1 1:18 AM PATTERN MARKING SUPERVISOR us Kathrin Austin MD POINT OF CARE TEST O RDERABLES Final Result * Aldolase (01/19/2024) Blood 01/19/2024 Impressions EXTERNAL LAB - 01/19/2024 4:21 PM CDT Normal Narrative EXTERNAL LAB - 01/19/2024 4:21 PM CDT 3.2- Normal Tiffanie Weiss MD LAB BLOOD ORDERABLES Final Resul t EXTERNAL LAB * CRP (acute phase) (01/19/2024) SCRIBED CRP <0.5 <1.0 - <1.0 mg/L EXTERNAL LAB Blood 01/19/2024 Tiffanie Weiss MD LAB BLOOD ORDERABLES Final Resul t Performing Organization Address City/[facility]/ZIP Co de Phone Number EXTERNAL LAB * Creatine kinase (CK), total (01/19/2024) SCRIBED Creatine Kinase, Total, Serum 99 55 - 170 EXTERNAL LAB Blood 01/19/2024 Tiffanie Weiss MD LAB BLOOD ORDERABLES Final Resul t Performing Organization Address City/[facility] Co de Phone Number EXTERNAL LAB from Last 3 Months Insurance MEDICARE MEDICARE [employer] [place] MEDICARE [facility] MEDICARE Advance Directives For more information, please contact: [phone] * Full Code (Latest Code Status on File) Date Activated Date Inactivated Comments 07/17/2020 8:05 PM 07/19/2020 7:41 PM * Full Code Date Activated Date Inactivated Comments 06/08/2020 6:02 PM 06/15/2020 7:20 PM Healthcare Agents on File Name Relationship Healthcare Agent Relationship Communication Shyann Nielsen Spouse First Alternat e Health Care Agent Care Teams Publicity Writer Relationship Specialty Start Date End Date Scott Oneill MD PCP - General Internal Medicine 04/27/20
--- OUTSIDE RECORDS SUMMARY | 2024-04-04 01:39 | XMS_ITS | Encounter Summary ---
Author Organization [facility] Address [address] [place] [address] Phone Care Team Providers Care Blower Insulator Name Role Phone Scott Oneill MD Primary Care Provider [phone] Encounter Details Date Type Department Care Team (Late st Contact Info) Description 12/17/2023 Documentation [facility] Pulmonary [address] 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 Task sent to ELISEO Oswald to assist in getting labs faxed or pushed over to us from [facility] done on 12/16/2023-CMP and/ or CBC. Responded to patient via [employer] that he will be given feedback when labs are received and reviewed by Dr. Goldberg. [place] Driver Labs available through care everywhere, notified Dr. Goldberg. [place] Driver Sharita, CMA Daley, Janice Labs in care everywhere. Britton Nielsen Sent to [facility] Clinical Pool (supporting Marce Bernal MD)2 hours ago (8:02 AM) Labs done on 12 16 23 documented in this encounter Plan of Treatment Not on file documented as of this encounter Visit Diagnoses Not on filedocumented in this encounter Care Teams Blower Insulator Relationship Specialty Start Date End Date Scott Oneill MD PCP - General Internal Medicine 04/27/20 documented as of this encounter
--- OUTSIDE RECORDS SUMMARY | 2024-04-04 01:39 | XMS_ITS | Encounter Summary ---
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 Take 3 tabs in the am and 2 tabs at night. 150 tablet 11/28/2023 documented in this encounter Miscellaneous Notes * Addendum Note - Dayne Gregory - 11/28/2023 3:18 PM CDTAddended by: DAYNE GREGORY on: 11/28/2023 03:18 PM Modules accepted: Orders * Telephone Encounter - Dayne Gregory - 11/28/2023 2:55 PM CDT Images from the original note were not included. As per message below, chart review reveals labs reviewed by Dr. Birmingham, Hb low (9.4g/dl), Messaged provider for feedback on possible dosage adjustments. [place] Driver Refill script sent to [facility] pharmacy [place] Driver Gabriel Rae Helen, MD Daley, Janice No, he can continue his current dose. Thanks! Maci ----- Message from Margret Frnaz sent at 11/28/2023 1:21 PM CDT ----- Regarding: [facility] pharmacy called from # [phone] requesting refill on patient's mycophenolate documented in this encounter Plan of Treatment Not on file documented as of this encounter Visit Diagnoses Not on filedocumented in this encounter Discontinued Medications Medication Sig Discontinue Reason Start Date End Da te mycophenolate mofetil (CELLCEPT) 500 mg tablet Take 3 tablets (1,500 mg total) by mouth nurse outreach case manager before breakfast AND 2 tablets (1,000 mg total) daily after dinner. Take 3 tabs in the am and 2 tabs at night. Reorder 09/19/2023 11/28/2023 documented as of this encounter Care Teams Assistant In Nursing Relationship Specialty Start Date End Date Scott Oneill MD PCP - General Internal Medicine 04/27/20 documented as of this encounter
--- OUTSIDE RECORDS SUMMARY | 2024-04-04 01:39 | XMS_ITS | Continuity of Care Document ---
Author Organization [facility] Address [address] [place] [address] Phone Care Team Providers Care Husbandry Person Name Role Phone Renny Garcia Unavailable Unavailable Advance Directives Directive Yes / No Effective Date File Name No Information Encounters Encounter Description Practice Location Reason(s) For Visit Diagnoses Date Provider Providers Copied on Encounter [facility], [address], [place], [place], [id number], [place] tel:[phone] [facility] [place] No Information Dec-0 6-200 [address] Edward. [address] [facility] [address] [place] , [address], [place], [address], [place]. tel:[phone] Family History Family Member Type Diagnosis Age At Onset No Information Payers Payer name Insurance type Covered democrat ID Authoriza tion(s) BCBS OR Commercial BL [id number] Social History Type Description Quantity Date Captured [...]
--- OUTSIDE RECORDS SUMMARY | 2024-04-04 01:39 | XMS_ITS | Encounter Summary ---
Author Organization [facility] Address [address] [place] [id number] Care Team Providers Care Sex Therapist Name Role Phone Scott Oneill MD Primary Care Provider [phone] Reason for Visit * Reason Comments Follow-up 1 yr f/u Encounter Details Date Type Department Care Team (Late st Contact Info) Description 02/02/2024 10:45 AM TICKET WORKER Office Visit [facility] Medical Group Cardiology [address] [place] [address] Kathrin Austin MD [address] [address] S/P CABG x 3 (Primary Dx); Mixed hyperlipidemia; Hypertension secondary to other renal disorders; Family history of early CAD; GOLDSTEIN (dyspnea on exertion); Chronic deep vein thrombosis (DVT) of proximal vein of lower extremity, unspecified laterality (HCC); Stage 3b chronic kidney disease (HCC); Interstitial lung disease (CMS/HCC) (HCC) Social History Tobacco Use Types Packs/Day [...] on file Legal Sex Male 1:23 AM 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7 kg (233 lb 1.6 oz) 024 10:28 AM TICKET WORKER Height 165.1 cm (5' 5 ) 02/02/2024 10:2 8 AM TICKET WORKER Body Mass Index 38.79 02/02/2024 10:28 AM TICKET WORKER documented in this encounter Progress Notes * Kathrin Austin MD - 02/02/2024 10:45 AM CST [facility] DATE OF VISIT: 02/02/2024 CHIEF COMPLAINT Chief Complaint Patient presents with Follow-up 1 yr f/u HPI Britton Nielsen is a 68 y.o. 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 Also history of obstructive sleep apnea on CPAP. He was referred to my office here for evaluation for chest pain. He reports central burning chest discomfort upon short walks that last for about 3-5 minutes in radiating to both arms. Start about a couple months ago. He underwent Lexiscan stress test at [facility] that was normal with no perfusion defect. And ejection fraction 62%. This discomfort associated with some shortness of breath but denies lower limb edema, dizziness, syncope, palpitations. He has 7 brothers and all of them had stents and heart attacks. His dad at age 63 and he had also coronary artery disease. 05/22/2020. Returns for follow-up appointment. He continues to have chest pain on exertion relievedby rest. Yesterday he was outside changing carpet and he started to feels central chest heaviness. He had to go inside sat down and the pain went away in 10 minutes. He continues to have also chest pain laying down watching TV relieved by sitting up. Denies dizziness, syncope, palpitations. 06/19/2020-returns for follow-up appointment with his . He underwent cardiac catheterization that shows significant three-vessel disease. He was referred to [facility] and underwent CABGx3 by Dr. Cordero with BURNS to LAD, SVG to ramus and SVG to RCA. Left radial artery was harvested but was too small to be used. He did well postoperatively and he is here for follow-up. It has lucian e pain around the incision site, fatigability. He is very happy with medical care at [facility]. He denies lower limb edema, dizziness, syncope. 10/26/2020-returns for follow-up appointment. Apparently had nonhealing of the upper sternal wound.He was taken to OR by Dr. Mccoy and underwent exploration of the wound and placement of VAC. the wound has healed well. Gained 20 lb since last visit. Stable dyspnea on exertion. No anginal chest pain. Denies dizziness, palpitations or syncope. 07/02/2021-returns for follow-up appointment. Lost 18 lb compared to last visit. He cut down his calorie intake. He feels much better. His CPAP was recalled and not using it now and that is causing him trouble sleeping. He states that when he coughs he notices part of the left chest pushes out. Hassome stabbing feeling in the upper back with no aggravating or relieving factors. Stable bilateral l ower extremity edema unchanged from before. Stable dyspnea on exertion. He stated that he fell the other day when he turned and he thinks his leg caught up on something and fell. Denies dizziness or syncope. 04/29/2022-returns for follow-up appointment. Denies chest pain. Stable dyspnea on exertion unchanged from before. Stable lower extremity edema unchanged from before. Denies palpitations, dizziness, syncope, orthopnea or paroxysmal nocturnal dyspnea. He sleeps using CPAP. He stated that he was hospitalized around Ethan time for pneumonia. He continues to follow-up with Nephrology with Dr. Barnrad who at 1 point discontinued the labetalol and started him on lisinopril but patient developed cough and patient went back to labetalol 100 mg daily. He also underwent colonoscopy with removal of 12 polyps. 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 01/27/2023-returns for follow-up appointment. Is here accompanied by his . Gained 16 lb compared to last visit. Denies chest pain, dizziness, syncope. Stable lower extremity edema unchanged from before. He remains physically active. He states he gained weight because he eats everything including sweets. 02/02/2024-returns for follow-up appointment. Was diagnosed with ANCA vasculitis follows up with Rheumatology, Pulmonary for interstitial lung and vascular surgery as well all at [facility]. He is taking CellCept. Denies chest pain, increasing shortness of breath, dizziness or syncope, palpitations. Gained 4 lb compared to last visit. Follows up with nephrology as well. He has nephritissecondary to the vasculitis. MEDICAL HISTORY Past Medical History: Diagnosis Date Arthritis Coronary artery disease 2020 DVT (deep venous thrombosis) ([facility]/HCC) ([facility]) History of transfusion Hyperlipidemia Hypertension Overweight Renal failure Skin cancer Sleep apnea Past Surgical History: Procedure Laterality Date CARDIAC CATHETERIZATION 06/08/2020 CORONARY ARTERY BYPASS GRAFT 06/12/2020 CABG X3 SKIN CANCER EXCISION 2003 Social History Tobacco Use Smoking status: Former Smoker Smokeless tobacco: Never Used Substance Use Topics Alcohol use: Yes Comment: 6 beers a year Drug use: Not Currently Family History Problem Relation Age of Onset Heart disease Mother Arthritis Mother Heart disease Father Arthritis Father Other (Septic ) Sister Arthritis Sister Cancer Brother Arthritis Brother MEDICATIONS HOME MEDICATIONS : apixaban (ELIQUIS) 5 mg tablet aspirin 81 mg enteric coated tablet atorvastatin (LIPITOR) 40 mg tablet calcium carbonate (TUMS) 500 mg (200 mg elemental calcium) chewable tablet calcium carbonate-vitamin D3 1500 mg (600 mg elemental) -200 units per tablet cyanocobalamin (Vitamin B-12) 1,000 mcg tablet cyclobenzaprine (FLEXERIL) 5 mg tablet ferrous sulfate 325 mg (65 mg of elemental iron) tablet furosemide (LASIX) 40 mg tablet irbesartan (AVAPRO) 300 mg tablet labetaloL (NORMODYNE,TRANDATE) 200 mg tablet potassium chloride ER 20 mEq CR tablet pregabalin (LYRICA) 50 mg capsule sodium bicarbonate 650 mg tablet tadalafiL (CIALIS) 20 mg tablet traMADoL (ULTRAM) 50 mg tablet mycophenolate mofetil (CELLCEPT) 500 mg tablet ALLERGIES No Known Allergies REVIEW OF SYSTEMS Review of Systems Constitutional: Negative for chills, fever, malaise/fatigue and weight loss. HENT: Positive for hearing loss. Negative for congestion and sore throat. Eyes: Negative for blurred vision and double vision. Cardiovascular: Positive for claudication, dyspnea on exertion and leg swelling. Negative for chestpain, near-syncope, orthopnea, palpitations, paroxysmal nocturnal dyspnea and syncope. Respiratory: Positive for snoring. Negative for cough, hemoptysis, shortness of breath, sputum production and wheezing. Endocrine: Negative for cold intolerance and polyuria. Hematologic/Lymphatic: Negative for bleeding problem. Does not bruise/bleed easily. Skin: Negative for itching and rash. Musculoskeletal: Negative for back pain, joint pain and joint swelling. Gastrointestinal: Negative for abdominal pain, diarrhea, nausea and vomiting. Genitourinary: Negative for dysuria, frequency and hematuria. Neurological: Negative for focal weakness, headaches and light-headedness. Psychiatric/Behavioral: Negative for depression. The patient is not nervous/anxious. Allergic/Immunologic: Negative for environmental allergies and hives. PHYSICAL EXAM Vitals BP 138/72 (BP Location: Right arm, Patient Position: Sitting) Pulse 62 Ht 165.1 cm (5' 5 ) Wt 105.7 kg (233 lb 1.6 oz) SpO2 94% BMI 38.79 kg/m?? Body mass index is 38.79 kg/m??. Physical Exam Constitutional: Appearance: He is well-developed. He is obese. HENT: Head: Normocephalic and atraumatic. Right Ear: External ear normal. Left Ear: External ear normal. Nose: No congestion. Eyes: General: No scleral icterus. Left eye: No discharge. Conjunctiva/sclera: Conjunctivae normal. Neck: Thyroid: No thyromegaly. Cardiovascular: Rate and Rhythm: Normal rate and regular rhythm. Heart sounds: Normal heart sounds. No murmur heard. No friction rub. No gallop. Pulmonary: Effort: Pulmonary effort is normal. No respiratory distress. Breath sounds: Normal breath sounds. No wheezing or rales. Chest: Chest wall: No tenderness. Abdominal: General: There is no distension. Palpations: Abdomen is soft. Tenderness: There is no abdominal tenderness. Musculoskeletal: General: No tenderness or deformity. Cervical back: Normal range of motion and neck supple. Right lower leg: Edema present. Left lower leg: Edema present. Comments: Plus one bilateral lower extremity edema Skin: General: Skin is warm. Findings: No erythema or rash. Neurological: Mental Status: He is alert and oriented to person, place, and time. Motor: No abnormal muscle tone. Psychiatric: Mood and Affect: Mood normal. Behavior: Behavior normal. Judgment: Judgment normal. LABS AND OTHER DIAGNOSTIC TESTS Lab Results Component Value Date WBC 4.3 07/18/2020 HGB 8.7 (L) 07/18/2020 HCT 27.8 (L) 07/18/2020 MCV 91.1 07/18/2020 Chemistry Component Value Date/Time SODIUM 141 07/18/2020 0121 POTASSIUM 4.3 07/18/2020 0121 CHLORIDE 108 07/18/2020 0121 CO2 24 07/18/2020 0121 BUNSER 37 (H) 07/18/2020 0121 CREATININE 2.00 (H) 07/18/2020 0121 GLUCOSE 112 07/18/2020 0121 Component Value Date/Time CALCIUM 8.7 07/18/2020 0121 ALKPHOS 87 06/08/2020 1832 AST 14 06/08/2020 1832 ALT 14 06/08/2020 1832 BILITOT 0.6 06/08/2020 1832 EKG2/06/2020-sinus bradycardia Lexiscan stress test March [address] Negative for ischemia. Ejection fraction 63% Cardiac catheterization May 2020-at [facility]. High-grade stenosis involving ostial ramus, ostial left circumflex artery and RCA. The LAD in the cranial view 90% ostial E. Distal left main 50% ASSESSMENT There are no diagnoses linked to this encounter. PLAN/RECOMMENDATIONS -patient status post CABG x3 [address] Cordero. Chest wall healed well. To the side of the left lower chest and when he coughs there is some bulging. Continue aspirin and Eliquis. I confirmed with that he is safe to take an aspirin 81 mg daily. Repeat echocardiogram June 2022 shows normal LV function. -regards to history of DVT, continue Eliquis. -regards to hypertension, blood pressure overall controlled. Continue labetalol and irbesartan. Lasix. 138/72.. Patient to keep blood pressure log at home and call me if the blood pressure running 140/90 or above In regards to stage 3 kidney disease it seems that the patient has glomerular nephritis and followswith Nephrology. His kidney function remained stable after the bypass surgery. He follows up with Nephrology. - in regards to hyperlipidemia, continue statin. Lipid panel checked today February 02, 2024 LDL 86,HDL 30 and triglycerides 190. Continue Lipitor. -regards to history of obstructive sleep apnea, continue CPAP. -In regards to ANCA vasculitis, he does have nephritis, interstitial lung changes, it also involvedthe peripheral vascular system. He follows up with Nephrology, Rheumatology, vascular surgery. On CellCept Follow up in the office in 12 months Kathrin Austin MD ET WORKER documented in this encounter Miscellaneous Notes * Addendum Note - Michael Jenkins MA - 02/02/2024 10:45 AM CSTAddended by: MICHAEL JENKINS on: 02/02/2024 11:19 AM Modules accepted: Orders ET WORKER documented in this encounter Plan of Treatment Not on file documented as of this encounter Procedures Procedure Name Priority Date/Time Associated Diagnosis Comments POCT LIPID PANEL Routine 02/02/2024 11:1 8 AM TICKET WORKER Mixed hyperlipidemia documented in this encounter Results * POCT lipid panel (02/02/2024 11:18 AM TICKET WORKER) Cholesterol, POC 155 mg/dL Comment:GLU = 100 HDL, POC 30 mg/dL Triglycerides, POC 191 mg/dL LDL Cholesterol POC 86 mg/dL Chol/HDL Ratio, POC 2.9 Non-HDL Cholesterol, POC 125 mg/dL Cholesterol Total, POC 155 mg/dL Capillary blood 02/02/2024 1 1:18 AM TICKET WORKER us Kathrin Austin MD POINT OF CARE TEST O RDERABLES Final Result documented in this encounter Visit Diagnoses Diagnosis S/P CABG x 3- Primary Postsurgical aortocoronary bypass status Mixed hyperlipidemia Hypertension secondary to other renal disorders Family history of early CAD Family history of ischemic heart disease GOLDSTEIN (dyspnea on exertion) Other dyspnea and respiratory abnormality Chronic deep vein thrombosis (DVT) of proximal vein of lower extremity, unspecified laterality (HCC) Stage 3b chronic kidney disease (HCC) Interstitial lung disease (CMS/HCC) (HCC) Postinflammatory pulmonary fibrosis documented in this encounter Care Teams Sex Therapist Relationship Specialty Start Date End Date Scott Oneill MD PCP - General Internal Medicine 04/27/20 documented as of this encounter
--- OUTSIDE RECORDS SUMMARY | 2024-04-04 01:39 | XMS_ITS | Encounter Summary ---
Author Organization [facility] Address [address] [place] [address] Phone Care Team Providers Care Electronic Science Teacher Name Role Phone Scott Oneill MD Primary Care Provider [phone] Encounter Details Date Type Department Care Team (Late st Contact Info) Description 02/11/2024 Telephone [place] [id number] 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 Echo schedule for Friday03/19/2024 at 2pm. TURBINE SERVICE TECHNICIAN TURBINE SERVICE TECHNICIAN documented in this encounter Plan of Treatment Not on file documented as of this encounter Visit Diagnoses Not on filedocumented in this encounter Care Teams Electronic Science Teacher Relationship Specialty Start Date End Date Scott Oneill MD PCP - General Internal Medicine 04/27/20 documented as of this encounter
--- OUTSIDE RECORDS SUMMARY | 2024-04-04 01:39 | XMS_ITS | Clinical Summary ---
Author Organization [facility] [address] Address [address] [place] [address] Care Team Providers Care Standpipe Tender Name Role Phone Scott Oneill MD Primary Care Provider [phone]- [phone] Allergies No known active allergies Medications potassium [...] Diagnosed Date Resolved Date Angina pectoris syndrome ([facility]) 05/04/2020 10/26/2020 Encounters Date Type Department Care Team Description 03/17/2024 3:30 PM NUTRITION THERAPIST Office Visit [facility] Rheumatology [address] [place] [address] 5th [place] [address] [place] [address] Popping of left knee joint (Primary Dx); Chronic SI joint pain; Low back pain, unspecified back pain laterality, unspecified chronicity, unspecified whether sciatica present 03/05/2024 Documentation [facility] Pulmonary [facility] Medicine 8th [place] [address] [place] [address] Marce Bernal MD Labs Only 03/05/2024 Telephone [facility] Pulmonary [address] [place] [address] 8th [place] [address] [place] [address] Margret Cobb CMA 03/01/2024 Orders Only [facility] Scanning, Provider 02/11/2024 Documentation [facility] Pulmonary [facility] Medicine 8th [place] [address] [place] [address] Marce Bernal MD multidisciplinary conference 02/11/2024 Telephone [facility] Pulmonary [address] [place] [address] Medicine 8th [place] [address] [place] [address] Margret Cobb CMA 02/10/2024 Documentation [facility] Pulmonary [address] [place] [address] Medicine 8th [place] [address] [place] [address] Polly Paulino, [place] 02/10/2024 Orders Only [facility] Pulmonary [address] [facility] 8th [place] [address] [place] [address] Marce Bernal MD SOB (shortness of breath) (Primary Dx); Pulmonary hypertension (HCC); Interstitial lung disease (CMS/HCC) (HCC) 02/05/2024 3:00 PM NUTRITION THERAPIST Office Visit [facility] Pulmonary [address] 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); Morbid (severe) obesity due to excess calories (HCC) 02/05/2024 12:56 PM NUTRITION THERAPIST - 02/05/2024 11:59 PM NUTRITION THERAPIST Hospital Encounter [facility] Pulmonary [address] [facility] [address] [place] [address] Microscopic polyangiitis (HCC) Discharge Disposition: Discharge to home or self care 02/05/2024 12:35 PM NUTRITION THERAPIST - 02/05/2024 11:59 PM NUTRITION THERAPIST Hospital Encounter [facility] [address] [place] [address] Cough, unspecified type; Cough with hemoptysis Discharge Disposition: Discharge to home or self care 02/05/2024 11:49 AM NUTRITION THERAPIST - 02/05/2024 11:59 PM NUTRITION THERAPIST Hospital Encounter [facility] [address] [place] [address] Marce Bernal MD Microscopic polyangiitis (HCC) Discharge Disposition: Discharge to home or self care 02/02/2024 10:45 AM NUTRITION THERAPIST Office Visit [facility] Cardiology [address] [facility] [address] [place] [address] Kathrin Austin MD S/P CABG x 3 (Primary Dx); Mixed hyperlipidemia; Hypertension secondary to other renal disorders; Family history of early CAD; GOLDSTEIN (dyspnea on exertion); Chronic deep vein thrombosis (DVT) of proximal vein of lower extremity, unspecified laterality (HCC); Stage 3b chronic kidney disease (HCC); Interstitial lung disease (CMS/HCC) (HCC) 01/21/2024 Telephone [facility] Surgery [address] [facility] Medical Office Building [address] [address] Rocío Loera DEVEN Leg Pain from Last 3 Months Surgical History Surgery Date Site/Laterality Comments CARDIAC CATHETERIZATION 06/08/2020 CORONARY ARTERY BYPASS GRAFT 06/12/2020 CABG X3 SKIN CANCER EXCISION 03/31/2003 - 03/30/2004 Medical History Medical History Date Comments Hypertension Overweight Hyperlipidemia Renal failure Arthritis DVT (deep venous thrombosis) (CMS/HCC) (HCC) Skin cancer History of transfusion Sleep apnea Coronary artery disease 2020 Family History Medical History Relation Name Comments Arthritis Brother Cancer Brother Arthritis Father Heart disease Father Arthritis Mother Heart disease Mother Arthritis Sister Septic Sister Relation Name Status Comments Brother (Age 60) Father (Age 63) Mother (Age 78) Sister (Age 65) Social History Tobacco Use Types Packs/Day Years [...] on file Legal Sex Male 1:23 AM NUTRITION THERAPIST Gender Identity Male 12/24/2023 11:25 AM CDT Sexual Orientation Straight 12/24/2023 11 :25 AM CDT 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 Start Date Job End Date [employer], 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, 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 Not on file Not on file Not on file Obstetrics History Last Filed Vital Signs Vital Sign Reading Time Taken Comments Blood Pressure 165/75 03/17/2024 3:28 PM NUTRITION THERAPIST Pulse 56 03/17/2024 3:28 PM NUTRITION THERAPIST Temperature 36.6 ??C (97.8 ??F) 03/17/2024 3:28 PM CS T Respiratory Rate 18 02/05/2024 2:17 PM NUTRITION THERAPIST Oxygen Saturation 97% 03/17/2024 3:28 PM NUTRITION THERAPIST Inhaled Oxygen Concentration - - Weight 105.6 kg (232 lb 12.8 oz) 03/17/2024 3:28 PM NUTRITION THERAPIST Height 166.4 cm (5' 5.5 ) 03/17/2024 3:28 PM NUTRITION THERAPIST Body Mass Index 38.15 03/17/2024 3:28 PM NUTRITION THERAPIST Plan of Treatment Health Maintenance Due Date Last Done Comments Colon Cancer Screening-Colonoscopy 1955 Depression Screening 1954 Hepatitis C Screening 1955 DTaP/Tdap/Td Vaccine (1 - Tdap) 1965 Hepatitis B Screening 02/14/1972 Zoster Vaccine (1 of 2) 1973 Pneumococcal vaccine 65+ (2 of 2 - PPSV23 or PCV20) 06/26/2017 05/01/2017 Abdominal Aortic Aneurysm (A AA) Screen 2019 Well Visit 65+ 2019 Covid-19 Vaccine (3 - Modern a risk series) 08/08/2020 07/11/2020, 05/13/2020 Fall Risk Assessment 07/19/2021 07/19/2020 Influenza Vaccine (#1) 2023 2, 02/21/2021, 05/13/2020, Additional history exists Procedures Procedure Name Priority Date/Time Associated Diagnosis Comments SCAN - LABS 03/01/2024 PULMONARY FUNCTION TEST (PFT) Routine 02/05/2024 1:57 PM NUTRITION THERAPIST Microscopic polyangiitis (HCC) XR CHEST PA LATERAL 2 VIEWS Schedule Routine, Read Routine (OP Routine) 02/05/2024 12:47 PM NUTRITION THERAPIST Cough, unspecified type Cough with hemoptysis CT CHEST HIGH RESOLUTION WO CONTRAST Routine 02/05/2024 12:22 PM NUTRITION THERAPIST Microscopic polyangiitis (HCC) POCT LIPID PANEL Routine 02/02/2024 11:1 8 AM NUTRITION THERAPIST Mixed hyperlipidemia CREATINE KINASE (CK), TOTAL Routine [...] Pulmonary Function Test - (02/05/2024 1:57 PM NUTRITION THERAPIST) FVC PRE 2.39 L [facility] FVC %PRE PRED 67 % [facility] FEV1 PRE 2.10 L [facility] FEV1 %PRE PRED 77 % [facility] FEV1/FVC PRE 88.2 % [facility] DLCO PRE 6.9 ml/min/mmH g [facility] DLCO %PRE PRED 31 % [facility] Anatomical Region Laterality Modality PFT 02/05/2024 1:40 PM NUTRITION THERAPIST Narrative 02/06/2024 5:40 PM NUTRITION THERAPIST Table formatting from the original result was not included. [facility] Division of Pulmonary & Critical Care Medicine [address] [place] [address]; [place] [facility]; [place], [place] ??[address]; [phone] Pulmonary Function Laboratory Pulmonary Stress Test Simple/Oxygen [...] 98 68 0 167/62 2.10 77% 3 ?? 99 60 0 ?*[place] rate of perceived [...] with the written final report. PFT performed at:->[facility] Adult PFT [facility]- [facility]8D Procedure:->Spirometry Procedure:->DLCO Procedure:->Oxygen Assessment Titration DLCO:->Spirometry Pulmonary [...] and %HbO2 is age dependent. However, the [facility] Pulmonary Function Laboratory defines hypoxemia as a PaO2 <56 mm Hg or a %HbO2 <89%. Marce Bernal MD PFT ORDERABLES Final Result * X-ray chest 2 views (02/05/2024 12:47 PM NUTRITION THERAPIST) Anatomical Region Laterality Modality Body, Chest N/A Computed Radiogr aphy 02/05/2024 1:34 PM NUTRITION THERAPIST Impressions 02/05/2024 1:44 PM NUTRITION THERAPIST Comparison is made to chest radiograph from [...] Neisha Franks M.D. Narrative 02/05/2024 1:44 PM NUTRITION THERAPIST EXAMINATION: 2 view chest radiograph Procedure Note [...] High Resolution WO Contrast (02/05/2024 12:22 PM NUTRITION THERAPIST) Anatomical Region Laterality Modality Chest N/A Computed Tomogra phy 02/05/2024 12:5 1 PM NUTRITION THERAPIST Impressions 02/05/2024 12:51 PM NUTRITION THERAPIST Diffuse fibrotic interstitial lung disease throughout the [...] Courtney Shin M.D. Narrative 02/05/2024 12:51 PM NUTRITION THERAPIST EXAMINATION: ??Computed tomography of the chest high-resolution [...] * POCT lipid panel (02/02/2024 11:18 AM NUTRITION THERAPIST) Cholesterol, POC 155 mg/dL Comment:GLU = 100 HDL, POC 30 mg/dL Triglycerides, POC 191 mg/dL LDL Cholesterol POC 86 mg/dL Chol/HDL Ratio, POC 2.9 Non-HDL Cholesterol, POC 125 mg/dL Cholesterol Total, POC 155 mg/dL Capillary blood 02/02/2024 1 1:18 AM NUTRITION THERAPIST Kathrin Austin MD POINT OF CARE TEST O RDERABLES Final Result * Aldolase (01/19/2024) Blood 01/19/2024 Impressions EXTERNAL LAB - 01/19/2024 4:21 PM CDT Normal Narrative EXTERNAL LAB - 01/19/2024 4:21 PM CDT 3.2- Normal Tiffanie Weiss MD LAB BLOOD ORDERABLES Final Resul t EXTERNAL LAB * CRP (acute phase) (01/19/2024) Pathologist [facility] SCRIBED CRP <0.5 <1.0 - <1.0 mg/L EXTERNAL LAB Blood 01/19/2024 Tiffanie Weiss MD LAB BLOOD ORDERABLES Final Resul t EXTERNAL LAB * Creatine kinase (CK), total (01/19/2024) SCRIBED Creatine Kinase, Total, Serum 99 55 - 170 EXTERNAL LAB Blood 01/19/2024 Tiffanie Weiss MD LAB BLOOD ORDERABLES Final Resul t EXTERNAL LAB from Last 3 Months Insurance MEDICARE MEDICARE [employer] [place] [place] MEDICARE [employer] [place] [employer] [place] [address] MEDICARE Advance Directives For more information, please contact: [phone] * Full Code (Latest Code Status on File) Date Activated Date Inactivated Comments 07/17/2020 8:05 PM 07/19/2020 7:41 PM * Full Code Date Activated Date Inactivated Comments 06/08/2020 6:02 PM 06/15/2020 7:20 PM Healthcare Agents on File Name Relationship Healthcare Agent Relationship Communication Shyann Nielsen Spouse First Alternat e Health Care Agent Care Teams Standpipe Tender Relationship Specialty Start Date End Date Scott Oneill MD PCP - General Internal Medicine 04/27/20
--- OUTSIDE RECORDS SUMMARY | 2024-04-04 01:39 | XMS_ITS | Encounter Summary ---
Author Organization [facility] Address [address] [place] [address] Phone Care Team Providers Care Safety Person Name Role Phone Scott Oneill MD Primary Care Provider [phone] Encounter Details Date Type Department Care Team (Late st Contact Info) Description 03/05/2024 Telephone [place] [id number] 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 OR ELECTRONICS TECHNICIAN documented in this encounter Plan of Treatment Not on file documented as of this encounter Visit Diagnoses Not on filedocumented in this encounter Care Teams Safety Person Relationship Specialty Start Date End Date Scott Oneill MD PCP - General Internal Medicine 04/27/20 documented as of this encounter
--- OUTSIDE RECORDS SUMMARY | 2024-04-04 01:39 | XMS_ITS | Encounter Summary ---
Author Organization [facility] Address [address] [place] [address] Phone Care Team Providers Care Staff Writer Name Role Phone Scott Oneill MD Primary Care Provider [phone] Reason for Visit * Reason Onset Date Comments Labs Only 03/05/2024 Encounter Details Date Type Department Care Team (Late st Contact Info) Description 03/05/2024 Documentation [facility] Pul[facility] [address] [facility] 8th [place] [address] [place] [address] Marce Bernal MD [address] 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 WBC 5.5, Hgb 11.2, Plt 143, ALC 650, , creat 2.3, ENSER WINDER ENSER WINDER documented in this encounter Plan of Treatment Not on file documented as of this encounter Visit Diagnoses Not on filedocumented in this encounter Care Teams Staff Writer Relationship Specialty Start Date End Date Scott Oneill MD PCP - General Internal Medicine 04/27/20 documented as of this encounter
--- OUTSIDE RECORDS SUMMARY | 2024-04-04 01:39 | XMS_ITS | Encounter Summary ---
Author Organization [facility] Address [address] [place] [address] Phone Care Team Providers Care International Trade Compliance Manager Name Role Phone Scott Oneill MD Primary Care Provider [phone] Reason for Visit * Reason Onset Date Comments multidisciplinary conference 02/11/2024 Encounter Details Date Type Department Care Team (Latest Contact Info) Description 02/11/2024 Documentation [facility] Pulmonary [address] [facility] Advanced Medicine 8th [place] [address] [place] [address] Marce Bernal MD [address] [facility] [address] [place] [address] multidisciplinary conference Social History Tobacco Use Types Packs/Day Years [...] on file Legal Sex Male 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 Gender Identity Male 12/24/2023 11:25 AM CDT Sexual Orientation Straight 12/24/2023 11 :25 AM CDT 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 Start Date Job End Date [employer], 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 N/A If not UIP, pattern is Other Compared to prior CT: Better Final MDD diagnosis: Vasculitis If other: GGO are better. Underlying fibrosis stable to minimally worse. Is this same as initial MDD diagnosis?:Yes Follow up imaging needed:No Additional notes: PROCESSING PLANT OPERATOR documented in this encounter Plan of Treatment Not on file documented as of this encounter Visit Diagnoses Not on filedocumented in this encounter Care Teams International Trade Compliance Manager Relationship Specialty Start Date End Date Scott Oneill MD PCP - General Internal Medicine 04/27/20 documented as of this encounter
--- OUTSIDE RECORDS SUMMARY | 2024-04-04 01:39 | XMS_ITS | Encounter Summary ---
Author Organization [facility] Address [address] [place] [address] Phone Care Team Providers Care Packer And Carry Out Name Role Phone Scott Oneill MD Primary Care Provider [phone] Reason for Visit * Reason Onset Date Comments Leg Pain 01/21/2024 Encounter Details Date Type Department Care Team (Late st Contact Info) Description 01/21/2024 Telephone [facility] Surgery [address] [place] [address] Medical Office Building [address] [place] [address] Evaristo RocíoDEVEN mejía Leg Pain Social History Tobacco Use Types Packs/Day Years [...] on file Legal Sex Male 1:23 AM DIRECTOR OF OPERATIONS HOME HEALTH Gender Identity Male 12/24/2023 11:25 AM CDT Sexual Orientation Straight 12/24/2023 11 :25 AM CDT 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 Start Date Job End Date [employer], 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 Patient said it feels like his toes are being crushed off. Informed patient to go to [facility] ED immediately. Patient voiced understanding. documented in this encounter Plan of Treatment Not on file documented as of this encounter Visit Diagnoses Not on filedocumented in this encounter Care Teams Packer And Carry Out Relationship Specialty Start Date End Date Scott Oneill MD PCP - General Internal Medicine 04/27/20 documented as of this encounter
--- OUTSIDE RECORDS SUMMARY | 2024-04-04 01:39 | XMS_ITS | Encounter Summary ---
Author Organization [facility] Address [address] [place] [address] Phone Care Team Providers Care Dampener Name Role Phone Scott Oneill MD Primary Care Provider [phone] Reason for Referral * Cardiology (Routine) - Closed Specialty Diagnoses / Procedures Referred By Contac t Referred To Contact Diagnoses SOB (shortness of breath) Pulmonary hypertension (HCC) Interstitial lung disease (CMS/HCC) (HCC) Procedures Transthoracic Echo (TTE) Complete W Doppler/CF Marce Bernal MD [address] [place] [address] Phone: tel: fax: External Order Referral ID Status Reason Start Date Expiration Date Visits Re quested Visits Authorized [id number] Closed 02/10/2024 03/11/2025 1 1 MENT REMEDIATION CONSULTANT Encounter Details Date Type Department Care Team (Late st Contact Info) Description 02/10/2024 Orders Only 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 file Not on file Not on file documented as of this encounter Plan of Treatment Scheduled Orders Name Type Priority Associated Diagnoses Orde r Schedule Transthoracic Echo (TTE) Complete W Doppler/CF Echocardiography Routine SOB (shortness of breath) Pulmonary hypertension (HCC) Interstitial lung disease (CMS/HCC) (HCC) Expected: 02/10/2024, Expires: 02/09/2025 documented as of this encounter Visit Diagnoses Diagnosis SOB (shortness of breath)- Primary Shortness of breath Pulmonary hypertension (HCC) Other chronic pulmonary heart diseases Interstitial lung disease (CMS/HCC) (HCC) Postinflammatory pulmonary fibrosis documented in this encounter Care Teams Dampener Relationship Specialty Start Date End Date Scott Oneill MD PCP - General Internal Medicine 04/27/20 documented as of this encounter
--- OUTSIDE RECORDS SUMMARY | 2024-04-04 01:39 | XMS_ITS | Encounter Summary ---
Author Organization [facility] Address [address] [facility] [address] [place] [address] Phone Care Team Providers Care Housing Installer Name Role Phone Scott Oneill MD Primary Care Provider [phone] Reason for Referral * Procedure (Routine) - Authorized Specialty Diagnoses / Procedures Referred By Contac t Referred To Contact Diagnoses Microscopic polyangiitis (HCC) Procedures Pulmonary Function Test -[facility] Adult PFT Lab- [facility]; Spirometry, Oxygen Assessment Titration Marce Bernal MD [address] [place] [address] Phone: tel: fax: Referral ID Status Reason Start Date Expiration Date V isits Requested Visits Authorized [id number] Authorized 02/05/2024 03/06/2025 1 1 P POLISHER Encounter Details Date Type Department Care Team (Late st Contact Info) Description 02/05/2024 3:00 PM STRIP POLISHER Office Visit [facility] Pulmonary [address] [facility] Medicine 8th [place] [address] [place] [id number] Marce Bernal MD [address] [facility] [address] [place] [address] Microscopic polyangiitis (HCC) (Primary Dx); Interstitial lung disease (CMS/HCC) (HCC); Stage 3b chronic kidney disease (HCC); Immunosuppression (HCC); Chronic kidney disease, stage IV (severe) (CMS/HCC) (HCC); 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); Morbid (severe) obesity due to excess calories (HCC) Social History Tobacco Use Types Packs/Day [...] on file Legal Sex Male 1:23 AM STRIP POLISHER Gender Identity Male 12/24/2023 11:25 AM CDT Sexual Orientation Straight 12/24/2023 11 :25 AM CDT 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 Start Date Job End Date [employer], 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, 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 Not on file Not on file Not on file documented as of this encounter Last Filed Vital Signs Vital Sign Reading Time Taken Comments Blood Pressure 153/73 02/05/2024 2:17 PM STRIP POLISHER Pulse 62 02/05/2024 2:17 PM STRIP POLISHER Temperature 36.1 ??C (96.9 ??F) 02/05/2024 2:17 PM CS T Respiratory Rate 18 02/05/2024 2:17 PM STRIP POLISHER Oxygen Saturation 94% 02/05/2024 2:17 PM STRIP POLISHER Inhaled Oxygen Concentration - - Weight 105.2 kg (232 lb) 02/05/2024 2:17 PM STRIP POLISHER Height 165.1 cm (5' 5 ) 02/05/2024 2:17 PM STRIP POLISHER Body Mass Index 38.61 02/05/2024 2:17 PM STRIP POLISHER documented in this encounter Patient Instructions * Patient Instructions* Marce Bernal MD - 02/05/2024 3:00 PM STRIP POLISHER Continue mycophenolate 500 mg bid Will call next week after review of the CT scan Will arrange an echocardiogram at [facility] Will plan follow up in 6 months Please contact the nurse coordinator (WESTON Ibarra) at [phone] with questions. 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 Treated with Cytoxan, prednisone, and Cellcept in 2017. Off all therapy since 2020. Interstitial lung disease. Evaluation in progress but concern that this is related to vasculitis as above. ANH 1:640 homogeneous, indeterminate ANCA with MPO 1.2, positive MEET with negative subsets, negative RF and CCP Probable UIP pattern on CT scan Initiated mycophenolate June 2023 - intolerant of higher doses of mycophenolate due to diarrhea - currently on 500 mg bid Obstructive sleep apnea on CPAP. CKD 3 in a setting of prior vasculitis. CAD status post CABG in 2020. Hypertension. DVTs, on Eliquis. GI bleed in 2018, status plus embolization. Neuropathy. Anemia, follows with hematology. Former smoker. INTERVAL HISTORY: Since the patient was last seen, his mycophenolate was briefly discontinued due to developing diarrhea on higher doses. We held the mycophenolate and his symptoms resolved. We discussed either restarting at a low dose or starting azathioprine. He opted to restart at a lower dose and is now on 500 mg b.i.d.. He is currently tolerating that dosage. He reports that his dyspnea is stable to improved. He has no coughing currently. MEDS: HOME MEDICATIONS : apixaban (ELIQUIS) 5 mg tablet atorvastatin (LIPITOR) 40 mg tablet calcitRIOL (ROCALTROL) 0.25 mcg capsule calcium carbonate (TUMS) 500 mg (200 mg elemental calcium) chewable tablet calcium carbonate-vitamin D3 1500 mg (600 mg elemental) -200 units per tablet cyanocobalamin (Vitamin B-12) injection cyclobenzaprine (FLEXERIL) 5 mg tablet prn ferrous sulfate 325 mg (65 mg of elemental iron) tablet furosemide (LASIX) 40 mg tablet qday HYDROcodone-acetaminophen (NORCO) 5-325 mg per tablet prn irbesartan (AVAPRO) 300 mg tablet labetaloL (NORMODYNE,TRANDATE) 200 mg tablet potassium chloride ER 20 mEq CR tablet pregabalin (LYRICA) 50 mg capsule sodium bicarbonate 650 mg tablet tadalafiL (CIALIS) 20 mg tablet prn traMADoL (ULTRAM) 50 mg tablet prn aspirin 81 mg enteric coated tablet mycophenolate mofetil (CELLCEPT) 500 mg tablet 500 mg bid ROS: He has no rash. No fevers or chills. Has lower extremity edema. His weight is fairly stable. PHYSICAL EXAM: Vitals BP 153/73 Pulse 62 Temp 36.1 ??C (96.9 ??F) Resp 18 Ht 165.1 cm (5' 5 ) Wt 105.2 kg (232 lb) SpO2 94% BMI 38.61 kg/m?? GEN: No acute distress HEENT: No oral pharyngeal lesions, no thrush, no cervical lymphadenopathy PUL: Clear to auscultation bilaterally CV: S1, S2, no murmurs, no rubs, no gallops ABD: Soft, nontender EXT: No clubbing, no cyanosis, no edema DATA: Spirometry: Date FVC, % pred FEV1, % pred FEV1/FVC TLC DLCO 01/2024 2.39, 67% 2.10, 77% 88% 31% 07/2023 2.54, 71% 2.23, 81% 88% 05/2023 2.60, 72% 2.35, 85% 90% 4.19, 69% 43% 03/2023 (OSH) 2.48, 69% 2.16, 78% 87% 3.17, 53% 50% (adj) 05/2020 (OSH) 2.95, 76% 2.47, 92% 84% 3.53, 63% 70% (adj) Oxygen assessment from today: Resting room air saturation was 99%. The patient walked a total of 1330 feet. With walking, room air saturation yvonne was 94%. The patient required 0 lpm oxygen with exertion to maintain saturation > 88-90%. Brenton dyspnea index was 0 at rest and 0 with exertion. Heart rate was 56 at rest and 79 with exertion. Blood pressure remained stable. FEV1 remained stable. Chest CT from today: Personally reviewed-by my review there is improved diffuse ground-glass with stable reticulation and mild traction bronchiectasis compared to March 2023. IMPRESSION: 68-year-old male with a history of microscopic polyangiitis with underlying interstitial lung disease related to this returns for follow-up. His lung functions within the range that he has been over the last several months. I feel a CT scan appears improved. Radiology read improvement in the ground-glass with some worsening of the underlying fibrosis. His DLCO is decreased slightly. He is currently on mycophenolate 500 mg b.i.d. and had difficulty tolerating higher dosing due to diarrhea. PLAN: I will review the CT scan in ILD conference with our radiologist to determine if there has been anyprogression. He will continue on mycophenolate 500 mg b.i.d.. He had repeat blood work done in mid December that was stable. I will obtain an echocardiogram to reassess for pulmonary hypertension given the decline in his DLCO. He would like to have this done at [facility]. He is already had flu shot. Will plan to see him back in six months with repeat spirometry and oxygen assessment. Marce Bernal MD technical sales representative This note is dictated and transcribed by Hive7 Direct software. Marble Mechanic Helper variances may occur. Despite proof reading, typographical errors may occur. P POLISHER documented in this encounter Plan of Treatment Scheduled Orders Name Type Priority Associated Diagnoses Orde r Schedule Pulmonary Function Test -[facility] Adult PFT Lab- [facility]; Spirometry, Oxygen Assessment Titration PFT Routine Microscopic polyangiitis (HCC) Expected: 08/04/2024 (Approximate), Expires: 02/04/2025 documented as of this encounter Visit Diagnoses Diagnosis Microscopic polyangiitis (HCC)- Primary Polyarteritis nodosa Interstitial lung disease (CMS/HCC) (HCC) Postinflammatory pulmonary fibrosis Stage 3b chronic kidney disease (HCC) Immunosuppression (HCC) Chronic kidney disease, stage IV (severe) (CMS/HCC) (HCC) Chronic kidney disease, Stage IV (severe) 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 Take 3 tabs in the am and 2 tabs at night. Reorder 11/28/2023 02/05/2024 azithromycin (ZITHROMAX) 250 mg tablet TAKE 2 TABLETS BY MOUTH ON DAY 1, AND THEN TAKE 1 TABLET BY MOUTH ONCE A DAY ON DAY 2 THROUGH DAY 5 12/26/2023 02/05/2024 methylPREDNISolone (MEDROL DOSEPACK) 4 mg Dosepack TAKE BY MOUTH DIRECTED ON INSIDE OF PACKAGE Duplicate order 12/26/2023 02/05/2024 documented as of this encounter Historical Medications * This list may reflect changes made after this encounter. HYDROcodone-acet aminophen (NORCO) 5-325 mg per tablet Take by mouth every 6 (six) hours as needed 01/24/2024 calcitRIOL (ROCALTROL) 0.25 mcg capsule TAKE 1 CAPSULE 3 TIMES WEEKLY TAKE AFTER DIALYSIS ON DIALYSIS DAYS methylPREDNISolo ne (MEDROL DOSEPACK) 4 mg Dosepack TAKE BY MOUTH DIRECTED ON INSIDE OF PACKAGE 12/26/2023 02/05/2024 azithromycin (ZITHROMAX) 250 mg tablet TAKE 2 TABLETS BY MOUTH ON DAY 1, AND THEN TAKE 1 TABLET BY MOUTH ONCE A DAY ON DAY 2 THROUGH DAY 5 12/26/2023 02/05/2024 added in this encounter Care Teams Housing Installer Relationship Specialty Start Date End Date Scott Oneill MD PCP - General Internal Medicine 04/27/20 documented as of this encounter
--- OUTSIDE RECORDS SUMMARY | 2024-04-04 01:39 | XMS_ITS | Encounter Summary ---
Author Organization [facility] Address [address] [facility] [address] [place] [address] Phone Care Team Providers Care Mold Insert Changer Name Role Phone Scott Oneill MD Primary Care Provider [phone] Reason for Referral * Procedure (Routine) - Closed Specialty Diagnoses / Procedures Referred By Rocky blancas Referred To Contact Diagnoses Microscopic polyangiitis (HCC) Procedures Pulmonary Function Test -[facility] Adult PFT Lab- [facility]; Spirometry, DLCO, Oxygen Assessment Titration; Spirometry Marce Bernal MD [address] [facility] [address] [place] [address] Phone: tel: fax: Referral ID Status Reason Start Date Expiration Date Visits Re quested Visits Authorized [id number] Closed 08/01/2023 08/30/2024 1 1 CLE OPERATOR Reason for Visit * Procedure (Routine) - Closed Specialty Diagnoses / Procedures Referred By Rocky blancas Referred To Contact Diagnoses Microscopic polyangiitis (HCC) Procedures Pulmonary Function Test -[facility] Adult PFT [facility]- [facility]; Spirometry, DLCO, Oxygen Assessment Titration; Spirometry Marce Bernal MD [address] [facility] [address] [place] [address] Phone: tel: fax: Referral ID Status Reason Start Date Expiration Date Visits Re quested Visits Authorized [id number] Closed 08/01/2023 08/30/2024 1 1 Encounter Details Date Type Department Care Team (Latest Contact Info) Description 02/05/2024 12:56 PM VEHICLE OPERATOR - 02/05/2024 11:59 PM VEHICLE OPERATOR Hospital Encounter [facility] Pulmonary [address] [facility] [address] [place] [address] Microscopic polyangiitis (HCC) Discharge Disposition: Discharge to [...] on file Legal Sex Male 1:23 AM VEHICLE OPERATOR Gender Identity Male 12/24/2023 11:25 AM CDT Sexual Orientation Straight 12/24/2023 11 :25 AM CDT 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 Start Date Job End Date [employer], 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, 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 Not on file Not on file Not [...] Procedure Name Priority Date/Time Associated Diagnosis Comments PULMONARY FUNCTION TEST (PFT) Routine 02/05/2024 1:57 PM VEHICLE OPERATOR Microscopic polyangiitis (HCC) documented in this encounter Results * Pulmonary Function Test - (02/05/2024 1:57 PM VEHICLE OPERATOR) FVC PRE 2.39 L [facility] FVC %PRE PRED 67 % [facility] FEV1 PRE 2.10 L [facility] FEV1 %PRE PRED 77 % [facility] FEV1/FVC PRE 88.2 % [facility] DLCO PRE 6.9 ml/min/mmH g [facility] DLCO %PRE PRED 31 % [facility] Anatomical Region Laterality Modality PFT 02/05/2024 1:40 PM VEHICLE OPERATOR Narrative 02/06/2024 5:40 PM VEHICLE OPERATOR Table formatting from the original result was not included. [facility] Division of Pulmonary & Critical Care Medicine [address] [place] [address]; [place] [address] [facility]; [place], [place] [address]; [phone] Pulmonary Function Laboratory Pulmonary Stress Test Simple/Oxygen [...] with the written final report. PFT performed at:->[facility] Adult PFT Lab- [facility]-8D Procedure:->Spirometry Procedure:->DLCO Procedure:->Oxygen [...] and %HbO2 is age dependent. However, the [facility] Pulmonary Function Laboratory defines hypoxemia as a PaO2 <56 mm Hg or a %HbO2 <89%. Marce Bernal MD PFT ORDERABLES Final Result documented in this encounter Visit Diagnoses Diagnosis Microscopic polyangiitis (HCC) Polyarteritis nodosa documented in this encounter Care Teams Mold Insert Changer Relationship Specialty Start Date End Date Scott Oneill MD PCP - General Internal Medicine 04/27/20 documented as of this encounter
--- OUTSIDE RECORDS SUMMARY | 2024-04-04 01:39 | XMS_ITS | Encounter Summary ---
Author Organization [facility] Address [address] [place] [address] Phone Care Team Providers Care Tugboat Dispatcher Name Role Phone Scott Oneill MD Primary Care Provider [phone] Reason for Referral * Consultation (Routine) - Authorized Specialty Diagnoses / Procedures Referred By Contac t Referred To Contact Physical Therapy Diagnoses Popping of left knee joint Chronic SI joint pain Low back pain, unspecified back pain laterality, unspecified chronicity, unspecified whether sciatica present Tiffanie Weiss MD [address] [place] [address] Phone: tel: fax: [address] [place] [phone] Phone: tel: fax: Referral ID Status Reason Start Date Expiration Date Visits Requested Visits Authorized [id number] Authorized Evaluate and Treat 03/17/2024 04/16/2025 24 24 Question Answer PTRFR PT Evaluate and Treat Reason for Visit back pain, si joint pain, knee pain Therapy options discussed with patient? Yes Location provided for therapy services is: Patient requested/Patient preferred Please select the performing region: External Order [[id number]] To loc/pos [facility] [[id number]] # of visits: 24 BILITATION AIDE/SCHEDULER Encounter Details Date Type Department Care Team (Late st Contact Info) Description 03/17/2024 3:30 PM REHABILITATION AIDE/SCHEDULER Office Visit [facility] Rheumatology [address] [facility] 5th [address] [place] [address] Popping of left knee joint (Primary Dx); Chronic SI joint pain; Low back pain, unspecified back pain laterality, unspecified chronicity, unspecified whether sciatica present Social History Tobacco Use Types Packs/Day Years [...] on file Legal Sex Male 1:23 AM REHABILITATION AIDE/SCHEDULER Gender Identity Male 12/24/2023 11:25 AM CDT Sexual Orientation Straight 12/24/2023 11 :25 AM CDT 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 Start Date Job End Date [employer], 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, 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 Not on file Not on file Not on file documented as of this encounter Last Filed Vital Signs Vital Sign Reading Time Taken Comments Blood Pressure 165/75 03/17/2024 3:28 PM REHABILITATION AIDE/SCHEDULER Pulse 56 03/17/2024 3:28 PM REHABILITATION AIDE/SCHEDULER Temperature 36.6 ??C (97.8 ??F) 03/17/2024 3:28 PM CS T Respiratory Rate - - Oxygen Saturation 97% 03/17/2024 3: 28 PM REHABILITATION AIDE/SCHEDULER Inhaled Oxygen Concentration - - Weight 105.6 kg (232 lb 12.8 oz) 03/17/2024 3:28 PM REHABILITATION AIDE/SCHEDULER Height 166.4 cm (5' 5.5 ) 03/17/2024 3:28 PM REHABILITATION AIDE/SCHEDULER Body Mass Index 38.15 03/17/2024 3:28 PM REHABILITATION AIDE/SCHEDULER documented in this encounter Patient Instructions * Patient Instructions* Norma Choi RMA - 03/17/2024 3:30 PM REHABILITATION AIDE/SCHEDULER Follow up in 3 months. Referred to physical therapy at [facility]. Lab/Imaging results may be available to you via [employer] within 24-[address] Weiss6-8 business days to fully review all test results. Please note critical result alerts are sent to Dr. Weiss on the same day. Our office will call you should anything require immediate attention. BILITATION AIDE/SCHEDULER BILITATION AIDE/SCHEDULER documented in this encounter Progress Notes * Tiffanie Weiss MD - 03/17/2024 3:30 PM CST Images from the original note were not included. 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 Bilateral pulmonary emboli and bilateral lower extremity DVT in October 2017 Coronary artery disease with CABG June 2020 SUBJECTIVE: Last seen in clinic on 09/09/2023. He continues to be on mycophenolate 500 mg b.i.d.. He recently developed sinus infection was given Z-Fantasma along with steroids and cough medicine 2 days ago. Has had episodes of pain in his feet and hips. Also reports pain in the lower back. States that he woke up 1night around 1:00 a.m. from sleep due to pain in his feet. He denied any redness or obvious swelling of the feet. He soaked his feet in cold water and his symptoms resolved. States that his breathing is stable. We had increased his mycophenolate to 1000 mg b.i.d. and he developed red bumps on his head. He drop the dose back to 500 mg b.i.d. and the bumps resolved/? diarrhea. He is scheduled for an echocardiogram on Friday. He has his renal follow-up tomorrow. Last pulmonary follow up in 01/2024-his CT chest was felt to be somewhat better. Mild decrease in DLCO was noted. Patient is therefore being set up for a 2D echocardiogram. Disease History: He carries a diagnosis of microscopic polyangiitis, being followed by Dr. Tong (nephrology), renal limited, diagnosed on kidney biopsy. He has been off cyclophosphamide since 2020. He was then treated with MMF for about a year along with steroids. He was recently noted to worsening respiratory symptoms with decreased PFT, increased septal thickening on his CT and worsening oxygenation. He was seen by Pulmonary as well and therapy with mycophenolate was initiated in June 2023 for ANCA associated ILD. ROS: All systems negative other than described above in the HPI PMHx: Past Medical History: Diagnosis Date Arthritis Coronary artery disease 2020 DVT (deep venous thrombosis) (CMS/HCC) (HCC) History of transfusion Hyperlipidemia Hypertension Overweight Renal failure Skin cancer Sleep apnea PSHx: Past Surgical History: Procedure Laterality Date CARDIAC CATHETERIZATION 06/08/2020 CORONARY ARTERY BYPASS GRAFT 06/12/2020 CABG X3 SKIN CANCER EXCISION 2003 Social Hx: Social History Tobacco Use Smoking status: Former Smokeless tobacco: Never Substance and Sexual Activity Drug use: Not Currently Sexual activity: None Alcohol Use: Not At Risk (06/08/2020) AUDIT-C Frequency of Alcohol Consumption: Monthly or less Average Number of Drinks: 1 or 2 Frequency of Binge Drinking: Never FHx: Family History Problem Relation Age of Onset Heart disease Mother Arthritis Mother Heart disease Father Arthritis Father Other (Septic ) Sister Arthritis Sister Cancer Brother Arthritis Brother MEDICATIONS: Current Outpatient Medications on File Prior to Visit Medication Sig Dispense Refill apixaban (ELIQUIS) 5 mg tablet Take 1 tablet (5 mg total) by mouth 2 (two) times a day atorvastatin (LIPITOR) 40 mg tablet Take 1 tablet (40 mg total) by mouth daily azithromycin (ZITHROMAX) 250 mg tablet TAKE 2 TABLETS BY MOUTH ON DAY 1, AND THEN TAKE 1 TABLET BY MOUTH ONCE A DAY ON DAY 2 THROUGH DAY 5 benzonatate (TESSALON) 200 mg capsule TAKE 1 CAPSULE BY MOUTH THREE TIMES DAILY NEEDED calcitRIOL (ROCALTROL) 0.25 mcg capsule TAKE 1 CAPSULE 3 TIMES WEEKLY TAKE AFTER DIALYSIS ON DIALYSIS DAYS calcium carbonate (TUMS) 500 mg (200 mg elemental calcium) chewable tablet Take 1 tablet/chew tab (500 mg total) by mouth calcium carbonate-vitamin D3 1500 mg (600 mg elemental) -200 units per tablet Take 1 tablet by mouth daily cyanocobalamin (Vitamin B-12) 1,000 mcg tablet Take 1 tablet (1,000 mcg total) by mouth daily cyclobenzaprine (FLEXERIL) 5 mg tablet Take 1 tablet (5 mg total) by mouth 2 (two) times a day as needed for muscle spasms (muscle pain) ferrous sulfate 325 mg (65 mg of elemental iron) tablet Take 1 tablet (325 mg total) by mouth daily furosemide (LASIX) 40 mg tablet Take 1 tablet (40 mg total) by mouth daily HYDROcodone-acetaminophen (NORCO) 5-325 mg per tablet Take by mouth every 6 (six) hours as needed labetaloL (NORMODYNE,TRANDATE) 200 mg tablet Take 1 tablet (200 mg total) by mouth 2 (two) times a day methylPREDNISolone (MEDROL DOSEPACK) 4 mg Dosepack TAKE BY MOUTH DIRECTED ON INSIDE OF PACKAGE mycophenolate mofetil (CELLCEPT) 500 mg tablet Take 1 tablet (500 mg total) by mouth 2 (two) times a day 60 tablet 3 potassium chloride ER 20 mEq CR tablet Take 1 tablet (20 mEq total) by mouth 2 (two) times a day pregabalin (LYRICA) 50 mg capsule Take 1 capsule (50 mg total) by mouth 3 (three) times a day sodium bicarbonate 650 mg tablet Take 1 tablet (650 mg total) by mouth 2 (two) times a day tadalafiL (CIALIS) 20 mg tablet Take by mouth daily as needed traMADoL (ULTRAM) 50 mg tablet Take 1 tablet (50 mg total) by mouth every 6 (six) hours as needed for pain aspirin 81 mg enteric coated tablet Take 1 tablet (81 mg total) by mouth daily irbesartan (AVAPRO) 300 mg tablet Take 1 tablet (300 mg total) by mouth daily (Patient not taking: Reported on 03/17/2024) No current facility-administered medications on file prior to visit. ALLERGIES: No Known Allergies OBJECTIVE: Physical Examination: Objective: BP 113/65 Pulse 70 Temp 36.6 ??C (97.8 ??F) Ht 166.4 cm (5' 5.5 ) Wt 89.1 kg (196 lb 6.4 oz) BMI 32.19 kg/m?? RAPID 3 SCORE RAPID 3 SCORE: 13 General: alert, cooperative, no distress Skin: Rash - Nodules: - Lungs: clear to auscultation bilaterally Heart: regular rate and rhythm, S1, S2 normal Abdomen: soft without mass, non-tender, with normal bowel sounds Joint Review Right Left Shoulder normal normal Elbow normal normal Wrist normal normal MCP normal normal PIP normal normal DIP normal normal Knee normal normal Ankle normal normal Foot normal normal Normal Hip ROM: yes SI Joints: Normal Spine: Normal alignment, tenderness to palpation of the L-spine Swollen Joints: 0 Trigger/ tender Points; Tight Muscle Groups: no Chris Vasculitis Score 09/09/2023 1500 New/Worsening Symptom Total Score: 0 Persistent Symptom Total Score: 0 VDI = 2 ASSESSMENT/PLAN: ANCA Vasculitis: --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), 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 due to ? Skin lesions --Tympanic Membrane peroration could be part of his disease previously unrecognized as such. --No signs of active disease currently --continue MMF for now --labs including CBC, CMP, inflammatory markers, Anca vasculitis panel, and urine studies 2. DJD L-spine: --refer to physical therapy Return to clinic in 3 months BILITATION AIDE/SCHEDULER documented in this encounter Plan of Treatment Scheduled Referrals Name Type Priority Associated Diagnoses Orde r Schedule Ambulatory referral order to Physical Therapy - Outpatient Referral Routine Popping of left knee joint Chronic SI joint pain Low back pain, unspecified back pain laterality, unspecified chronicity, unspecified whether sciatica present Expected: 03/31/2024 (Approximate), Expires: 03/17/2025 documented as of this encounter Visit Diagnoses Diagnosis Popping of left knee joint- Primary Chronic SI joint pain Disorders of sacrum Low back pain, unspecified back pain laterality, unspecified chronicity, unspecified whether sciatica present documented in this encounter Historical Medications * This list may reflect changes made after this encounter. methylPREDNISolon e (MEDROL DOSEPACK) 4 mg Dosepack TAKE BY MOUTH DIRECTED ON INSIDE OF PACKAGE 03/15/2024 benzonatate (TESSALON) 200 mg capsule TAKE 1 CAPSULE BY MOUTH THREE TIMES DAILY NEEDED 03/15/2024 azithromycin (ZITHROMAX) 250 mg tablet TAKE 2 TABLETS BY MOUTH ON DAY 1, AND THEN TAKE 1 TABLET BY MOUTH ONCE A DAY ON DAY 2 THROUGH DAY 5 03/15/2024 added in this encounter Care Teams Tugboat Dispatcher Relationship Specialty Start Date End Date Scott Oneill MD PCP - General Internal Medicine 04/27/20 documented as of this encounter
--- OUTSIDE RECORDS SUMMARY | 2024-04-04 01:39 | XMS_ITS | Encounter Summary ---
Author Organization [facility] Address [address] [place] [address] Phone Care Team Providers Care Technician Plant And Maintenance Name Role Phone Scott Oneill MD Primary Care Provider [phone] Encounter Details Date Type Department Care Team (Late st Contact Info) Description 02/10/2024 Documentation [facility] Pulmonary [address] 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 Message Suly for PA and ELISEO Oswald for scheduling. Dr. Bernal would like to set up an Echo at [facility]. Suly, No PA with medicare? Margret, Once the PA is complete, please fax order, schedule test next available and notify pt of date, times, location and a number to call if they need to reschedule. Thank you Polly TRUCTION DRIVER documented in this encounter Plan of Treatment Not on file documented as of this encounter Visit Diagnoses Not on filedocumented in this encounter Care Teams Technician Plant And Maintenance Relationship Specialty Start Date End Date Scott Oneill MD PCP - General Internal Medicine 04/27/20 documented as of this encounter
--- OUTSIDE RECORDS SUMMARY | 2024-04-04 01:39 | XMS_ITS | Encounter Summary ---
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 Patient sent portal message about having papules on the head and back with diarrhea hence reduced MMF dose.Advised by Dr. Goldberg to hold for a week and restart, if no relieve to discuss a new medication however as per patient message below, he decided to continue medication @ 1000 mg BID and watch symptom, if persist will hold for a week. [place] Driver [facility] I just started yesterday on the two a day cellcept. I'm going to try it for a week and see if thereis any change. if not then I will stop taking it for a week like you said. I will let you know something by the 06 of January, MD Britton Wsaserman18 hours ago (1:21 PM Hello, Sorry to hear about your symptoms. Did any of your symptoms improve with reducing the dose of your CellCept? I would recommend holding the CellCept for a week to see if your symptoms resolve. If they do, we will have to talk about using a different medication. If they do not improve, it is unlikely to be the cellcept causing the problem. Keep me posted as we do not want you off of all immunosuppression for a long period of time. Thanks, MD Britton Wasserman [facility] (supporting Gemini Goldberg MD)2 days ago I was wanting to let you know that I reduced the dosage of the cellcept that I was taking. Instead of four a day,I reduced it to two a day, The reason for this was because I received a shot on the of this month from , It's not the epogen anymore,He started me on Darbepoetin Dav. Inoticed after the shot, I started feeling sick again. I get diarrhea, I have these bumps all over the top of my head and the back of my neck. I don't know what medicine is causing this. documented in this encounter Plan of Treatment Not on file documented as of this encounter Visit Diagnoses Not on filedocumented in this encounter Care Teams Internal Audit Consultant Relationship Specialty Start Date End Date Scott Oneill MD PCP - General Internal Medicine 04/27/20 documented as of this encounter
--- OUTSIDE RECORDS SUMMARY | 2024-04-04 01:39 | XMS_ITS | Encounter Summary ---
Author Organization [facility] Address 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; Glomerulonephritis Social History Tobacco Use [...] Name Priority Date/Time Associated Diagnosis Comments CBC WITHOUT DIFFERENTIAL Routine 06/06/2017 Acute hemolytic anemia LACTATE DEHYDROGENASE Routine 06/06/2017 Acute hemolytic anemia FERRITIN Routine 06/06/2017 Acute hemolytic anemia BASIC METABOLIC PANEL Routine 06/06/2017 Glomerulonephritis IRON, TIBC, AND PERCENT SATURATION Routine 05/19/2017 Acute hemolytic anemia documented in this encounter Results * FERRITIN (06/06/2017) Blood Micheal Burns MD CHEMISTRY ORDERABLES EXTERNAL LAB * CBC WITHOUT DIFFERENTIAL (06/06/2017) Blood Micheal Burns MD HEMATOLOGY ORDERABLE S Performing Organization Address [facility] Co de Phone Number EXTERNAL LAB * BASIC METABOLIC PANEL (06/06/2017) Blood Micheal Burns MD CHEMISTRY ORDERABLES Performing Organization Address [facility] Co de Phone Number EXTERNAL LAB * LACTATE DEHYDROGENASE (06/06/2017) Blood Micheal Burns MD CHEMISTRY ORDERABLES Performing Organization Address [facility] Co de Phone Number EXTERNAL LAB * IRON, TIBC, AND PERCENT SATURATION (05/19/2017) Blood Micheal Burns MD CHEMISTRY ORDERABLES Performing Organization Address [facility] Co de Phone Number EXTERNAL LAB documented in this encounter Visit Diagnoses Diagnosis Acute hemolytic anemia Acquired hemolytic anemia, unspecified Glomerulonephritis Nephritis and nephropathy, not specified as acute or chronic, 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 documented in this encounter Care Teams Kiln Feeder Relationship Specialty Start Date End Date Scott Oneill MD [address] [phone] PCP - General Internal Medicine 05/02/17 documented as of this encounter
--- OUTSIDE RECORDS SUMMARY | 2024-04-04 01:39 | XMS_ITS | Encounter Summary ---
Author Organization [facility] Address [address] [place] [address] Care Team Providers Care Sales And Marketing Coordinator Name Role Phone Scott Oneill MD Primary Care Provider [phone] Reason for Referral * MRI/CAT/PET Scan (Routine) - Closed Specialty Diagnoses / Procedures Referred By Rocky blancas Referred To Contact Radiology Diagnoses Microscopic polyangiitis (HCC) Procedures CT Chest High Resolution WO Contrast Marce Bernal MD [address] [address] Phone: tel: fax: [address] [address] Referral ID Status Reason Start Date Expiration Date Visits Re quested Visits Authorized [id number] Closed 08/01/2023 08/30/2024 1 1 LEWARE ADMINISTRATOR Reason for Visit * MRI/CAT/PET Scan (Routine) - Closed Specialty Diagnoses / Procedures Referred By Rocky blancas Referred To Contact Radiology Diagnoses Microscopic polyangiitis (HCC) Procedures CT Chest High Resolution WO Contrast Marce Bernal MD [address] [address] Phone: tel: fax: [address] [address] Referral ID Status Reason Start Date Expiration Date Visits Re quested Visits Authorized [id number] Closed 08/01/2023 08/30/2024 1 1 Encounter Details Date Type Department Care Team (Latest Contact Info) Description 02/05/2024 11:49 AM MIDDLEWARE ADMINISTRATOR - 02/05/2024 11:59 PM MIDDLEWARE ADMINISTRATOR Hospital Encounter 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 Narrative 02/05/2024 12:51 PM MIDDLEWARE ADMINISTRATOR EXAMINATION: ??Computed tomography of the chest high-resolution [...] MD IMG CT PROCEDURES Final Resu lt documented in this encounter Visit Diagnoses Diagnosis Microscopic polyangiitis (HCC) Polyarteritis nodosa documented in this encounter Care Teams Sales And Marketing Coordinator Relationship Specialty Start Date End Date Scott Oneill MD PCP - General Internal Medicine 04/27/20 documented as of this encounter
--- OUTSIDE RECORDS SUMMARY | 2024-04-04 01:40 | XMS_ITS | Encounter Summary ---
Author Organization [facility] Address [address] [place] [address] Phone Care Team Providers Care Project Engineer Chemicals Name Role Phone Scott Oneill MD Primary Care Provider [phone] Reason for Visit * Reason Onset Date Comments Med Management 10/10/2023 Encounter Details Date Type Department Care Team (Late st Contact Info) Description 10/10/2023 Documentation [facility] Pulmonary [address] [facility] Advanced [facility] 8th [place] [address] [place] [id number] Marce Bernal MD [address] [facility] [address] [place] [address] Med Management Social History Tobacco Use Types Packs/Day Years [...] on file 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 Let us know next week how your symptoms are doing. If they are resolved, we can discuss trying a different medication if this is similar you had to issues in the past with mcyophenolate. ===View-only below this line=== ----- Message ----- From:Britton Nielsen Sent:10/10/2023 10:26 AM CDT To:Patient Medical Advice Request Message List Subject:REFILL ON MEDS. Good morning, thank you for responding back. He doesn't have any fever, nor does he have pain when he urinates. He's had stomach pains, loss of appetite. Shortness of breath and has had diarrhea a lot. He knew this was going to happen when he was put back on the cellcept. ----- Message ----- From:Marce Bernal MD Sent:10/10/2023 10:14 AM CDT To:Britton Nielsen Subject:REFILL ON MEDS. Is this since he increased his mycophenolate to three tablets (1500 mg) 2 times per day? Is he having any fevers or issues with pain when he urinates? If he is having any fevers or pain when he urinates, then I would recommend that he see his primary care provider to make sure he does not have a urinary tract infection. I would recommend that he not take the mycophenolate for the next week. Please let us know at the end of next week if his nausea and chills are better. If they are, then we can consider restarting naye lower dose. documented in this encounter Plan of Treatment Not on file documented as of this encounter Visit Diagnoses Not on filedocumented in this encounter Care Teams Project Engineer Chemicals Relationship Specialty Start Date End Date Scott Oneill MD PCP - General Internal Medicine 04/27/20 documented as of this encounter
--- OUTSIDE RECORDS SUMMARY | 2024-04-04 01:40 | XMS_ITS | Encounter Summary ---
Author Organization [facility] Address [address] [place] [address] Phone Care Team Providers Care Solution Mixer Name Role Phone Scott Oneill MD Primary Care Provider [phone] Reason for Visit * Reason Onset Date Comments Test Results 11/13/2023 Encounter Details Date Type Department Care Team (Late st Contact Info) Description 11/13/2023 Documentation [facility] Pulmonary [address] [facility] Advanced Medicine 8th [place] [address] [place] [address] Ramez Birmingham MD [address] [place] [address] Test Results Social History Tobacco Use Types Packs/Day Years [...] on file 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 Gender Identity Male 12/24/2023 11:25 AM CDT Sexual Orientation Straight 12/24/2023 11 :25 AM CDT 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 Start Date Job End Date [employer], 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, 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
--- OUTSIDE RECORDS SUMMARY | 2024-04-04 01:40 | XMS_ITS | Encounter Summary ---
Author Organization [facility] Address [address] [place] [address] Phone Care Team Providers Care Delivery Of Shopping News Name Role Phone Scott Oneill MD Primary Care Provider [phone] Reason for Visit * Reason Onset Date Comments Labs Only 08/19/2023 Encounter Details Date Type Department Care Team (Late st Contact Info) Description 08/19/2023 Documentation [facility] Pulmonary [address] [facility] Advanced Medicine 8th [place] [address] [place] [phone] Marce Bernal MD [address] [facility] [address] [place] [address] Labs Only Social History Tobacco [...] on file 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 Gender Identity Male 12/24/2023 11:25 AM CDT Sexual Orientation Straight 12/24/2023 11 :25 AM CDT 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 Start Date Job End Date [employer], 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
--- OUTSIDE RECORDS SUMMARY | 2024-04-04 01:40 | XMS_ITS | Encounter Summary ---
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 Gender Identity Male 12/24/2023 11:25 AM CDT Sexual Orientation Straight 12/24/2023 11 :25 AM CDT 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 Start Date Job End Date [employer], 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, 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 Not on file Not on file Not on file documented as of this encounter Medications at Time of Discharge apixaban (ELIQUIS) 5 mg tablet Take 1 tablet (5 mg total) by mouth 2 (two) times a day aspirin 81 mg enteric coated tablet Take 1 tablet (81 mg total) by mouth daily 06/15/2020 atorvastatin (LIPITOR) 40 mg tablet Take 1 tablet (40 mg total) by mouth daily 06/11/2023 calcium carbonate (TUMS) 500 mg (200 mg [...] (40 mg total) by mouth daily 03/27/2020 irbesartan (AVAPRO) 300 mg tablet Take 1 tablet (300 mg total) by mouth daily 05/26/2023 labetaloL (NORMODYNE,TRANDA TE) 200 mg tablet Take 1 tablet (200 mg total) by mouth 2 (two) times a day 03/26/2020 potassium chloride ER 20 mEq CR tablet [...] 6 (six) hours as needed for pain methylPREDNISolon e (MEDROL DOSEPACK) 4 mg Dosepack Take as directed on package 1 packet 08/19/2023 4 mycophenolate mofetil (CELLCEPT) 500 mg tablet Take 1000mg (2 tablets) in the morning and 500mg (1 tablet) in the evening 90 tablet 08/15/2023 4 mycophenolate mofetil (CELLCEPT) 500 mg tablet Take 3 tablets (1,500 mg total) by mouth emergency department director before breakfast AND 2 tablets (1,000 mg total) daily after dinner. TAKE 2 TABLETS BY MOUTH IN THE MORNING AND 1 IN THE EVENING. 150 tablet 1 09/19/2023 4 documented as of this encounter Discharge Disposition Disposition Code Departure Means Destination Discharge to home or self care documented in this encounter Plan of Treatment Not on file documented as of this encounter Procedures Procedure Name Priority Date/Time Associated Diagnosis Comments XR TRANSFER OF OUTSIDE FILMS Routine 09/16/2023 3:41 PM CDT documented in this encounter Results * XR Outside Reference (09/16/2023 3:41 PM CDT) Impressions [facility] - 09/16/2023 3:41 PM CDT These images are for Reference purposes only and have not been reviewed by [facility] Radiology. ??There will be no report generated by a [facility] Radiologist. Narrative [facility]_P[facility] - 09/16/2023 3:41 PM CDT EXAMINATION: ??Images For Reference Purposes Only Nael Chacko MD IMG XR PROCEDURES Final Result [facility] documented in this encounter Visit Diagnoses Not on filedocumented in this encounter Care Teams Bottom Buffer Relationship Specialty Start Date End Date Scott Oneill MD PCP - General Internal Medicine 04/27/20 documented as of this encounter
--- OUTSIDE RECORDS SUMMARY | 2024-04-04 01:40 | XMS_ITS | Encounter Summary ---
Author Organization [facility] Address [address] [place] [address] Phone Care Team Providers Care Quality Assurance Calibrator Name Role Phone Scott Oneill MD Primary Care Provider [phone] Reason for Visit * Reason Onset Date Comments Med Management 08/26/2023 Encounter Details Date Type Department Care Team (Late st Contact Info) Description 08/26/2023 Telephone [facility] Rhe[facility] Advanced Medicine 5th [place] [address] [place] [address] Tiffanie Weiss MD [address] [place] [address] Med Management Social History Tobacco [...] on file 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 Weiss advised patient to re-start MMF therapy for one week and update us on any recurrent symptoms. Patient verbalized understanding. * Telephone Encounter - Norma Choi RMA - 08/26/2023 3:16 PM CDT Patient was advised to hold MMF for 3-4 days due to episode of coughing up blood . Patient states symptoms have resolved. Would like to know if he should re-start MMF therapy? Will forward to Dr. Weiss for her recommendation. documented in this encounter Plan of Treatment Not on file documented as of this encounter Visit Diagnoses Not on filedocumented in this encounter Care Teams Quality Assurance Calibrator Relationship Specialty Start Date End Date Scott Oneill MD PCP - General Internal Medicine 04/27/20 documented as of this encounter
--- OUTSIDE RECORDS SUMMARY | 2024-04-04 01:40 | XMS_ITS | Encounter Summary ---
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 On pt, pt states that Dr. Fam told him to hold his MMF for 3-4 days in the setting of coughing up minimal blood. Pt will not increase MMF at this time. Pt will call this RN with an update after holding medication. MD Bernal updated. ----- Message from Marce Bernal MD sent at 08/19/2023 3:29 PM CDT ----- He can go to MMF 1000 mg bid and repeat labs in 2 weeks. documented in this encounter Plan of Treatment Not on file documented as of this encounter Visit Diagnoses Not on filedocumented in this encounter Care Teams Actuarial Clerk Relationship Specialty Start Date End Date Scott Oneill MD PCP - General Internal Medicine 04/27/20 documented as of this encounter
--- OUTSIDE RECORDS SUMMARY | 2024-04-04 01:40 | XMS_ITS | Encounter Summary ---
Author Organization [facility] Address [address] [place] [address] Phone Care Team Providers Care Chief Digital Officer Name Role Phone Scott Oneill MD Primary Care Provider [phone] Reason for Visit * Reason Onset Date Comments Prior Auth 08/20/2023 Cyclobenzaprine Encounter Details Date Type Department Care Team (Late st Contact Info) Description 08/20/[address] 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 * Telephone Encounter - Yudith Carver - 09/10/2023 12:28 PM CDT Villalobos: [id number] [employer] Cyclobenzaprine HCl 5MG tablets CaseId:[id number] Dx for Muscle Spans has been updated with patient plan. Prior Auth Status:Approved Eff Date 03/31/2023 Exp Date 09/11/2024 * Telephone Encounter - Yudith Carver - 09/10/2023 11:38 AM CDT Good Morning I am not seeing that the dx muscle spasms has been changed * Telephone Encounter - Brittani Carpio MA - 09/01/2023 7:28 PM CDT The ICD 10 that was used on prior auth was M54.50 - Low back pain, unspecified * Telephone Encounter - Brittani Carpio MA - 08/29/2023 1:18 PM CDT Villalobos: [id number] [employer] Cyclobenzaprine HCl 5MG tablets CaseId:[id number] Prior Auth Status:Denied The information received from your prescriber does not support approval because the use of this drug is not a diagnosis covered under your Medicare Part D benefit. The diagnosis given for use of thisdrug is not found in the Centers for Medicare and Medicaid Services (CMS)-approved medical references. Your plan's formulary, which is a list of covered drugs, has a prior authorization on this drug that has been approved by CMS. For coverage of this drug under your Medicare Part D benefit, the diagnosis given for this medication must be approved by the Food and Drug Administration (FDA) or be considered a Medicare Part D use (even though not FDA-Approved). Examples of Medicare Part D uses are treatment of muscle spasms associated with acute musculoskeletal conditions and treatment of fibromyalgia. In addition, this medication has been identified as a high risk medication (HRM) in patients 65 years and older. [facility] allows coverage of this medication if your prescriber has confirmed that thebenefit of using this high risk medication outweighs the possible safety risk. The information received does not show that you are using the requested drug for a covered Medicare Part D use. For moreinformation about prior authorization requirements, please see your Evidence of Coverage (EOC). We hope this letter helps you understand why we denied your request. * Telephone Encounter - Yudith Carver - 08/21/2023 9:18 AM CDT Villalobos: [id number] Cyclobenzaprine HCl 5MG tablets Status pending PA [employer] * Telephone Encounter - Norma Choi RMA - 08/20/2023 4:07 PM CDT Images from the original note were not included. documented in this encounter Plan of Treatment Not on file documented as of this encounter Visit Diagnoses Not on filedocumented in this encounter Care Teams Chief Digital Officer Relationship Specialty Start Date End Date Scott Oneill MD PCP - General Internal Medicine 04/27/20 documented as of this encounter
--- OUTSIDE RECORDS SUMMARY | 2024-04-04 01:40 | XMS_ITS | Encounter Summary ---
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 ----- Message from Nurse Stacey Harris sent at 09/18/2023 10:42 AM CDT ----- Regarding: did he call back ----- Message ----- From: Marce Bernal MD Sent: 09/18/2023 6:38 AM CDT To: Stacey Downs His labs look okay. If he has not had any further hemoptysis then we can increase his mycophenolateto 1500 mg in the morning and a 1000 mg in the evening with repeat labs in 2 weeks. documented in this encounter Plan of Treatment Not on file documented as of this encounter Visit Diagnoses Not on filedocumented in this encounter Care Teams Hand Clipper Relationship Specialty Start Date End Date Scott Oneill MD PCP - General Internal Medicine 04/27/20 documented as of this encounter
--- OUTSIDE RECORDS SUMMARY | 2024-04-04 01:40 | XMS_ITS | Encounter Summary ---
Author Organization [facility] Address [address] [place] [address] Phone Care Team Providers Care Cnc Router Operator Name Role Phone Scott Oneill MD Primary Care Provider [phone] Encounter Details Date Type Department Care Team (Late st Contact Info) Description 10/15/2023 Telephone [facility] Surgery [address] [place] [address] Medical Office Building [address] [place] [address] Lizeth Rashid RMA Social History Tobacco Use Types Packs/Day Years [...] on file 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 Gender Identity Male 12/24/2023 11:25 AM CDT Sexual Orientation Straight 12/24/2023 11 :25 AM CDT 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 Start Date Job End Date [employer], 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
--- OUTSIDE RECORDS SUMMARY | 2024-04-04 01:40 | XMS_ITS | Encounter Summary ---
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 No answer. LMOR ----- Message from Marce Bernal MD sent at 09/18/2023 6:37 AM CDT ----- His labs look okay. If he has not had any further hemoptysis then we can increase his mycophenolateto 1500 mg in the morning and a 1000 mg in the evening with repeat labs in 2 weeks. documented in this encounter Plan of Treatment Not on file documented as of this encounter Visit Diagnoses Not on filedocumented in this encounter Care Teams Diesel Fitter Mechanic Relationship Specialty Start Date End Date Scott Oneill MD PCP - General Internal Medicine 04/27/20 documented as of this encounter
--- OUTSIDE RECORDS SUMMARY | 2024-04-04 01:40 | XMS_ITS | Encounter Summary ---
Author Organization [facility] Address [address] [facility] [address] [place] [address] Phone Care Team Providers Care Chief Station Engineer Name Role Phone Scott Oneill MD Primary Care Provider [phone] Reason for Visit * Consultation (Routine) - Closed Specialty Diagnoses / Procedures Referred By Contac t Referred To Contact Vascular Surgery Diagnoses Peripheral vascular disease (HCC) Tiffanie Weiss MD [address] [place] [address] [place] [address] Phone: tel: fax: Yusef Carey MD [id number] [place] [address] [address] [place] [address] Phone: tel: fax: Referral ID Status Reason Start Date Expiration Date V isits Requested Visits Authorized [id number] Closed Specialty Services Required 10/03/2023 11/01/2024 1 1 Encounter Details Date Type Department Care Team (Late st Contact Info) Description 10/29/2023 10:00 AM CDT Office Visit [facility] Surgery [id number] [place] [address] Medical Office Building [address] [place] [id number] Gertrudis Kirkpatrick NP [address] [facility] [id number] [place], [place] [id number] Peripheral vascular disease (HCC) (Primary Dx); Bilateral lower extremity edema; 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 [...] on file Legal Sex Male 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 Gender Identity Male 12/24/2023 11:25 AM CDT Sexual Orientation Straight 12/24/2023 11 :25 AM CDT 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 Start Date Job End Date [employer], 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, 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 Not on file Not on file Not on file documented as of this encounter Last Filed Vital Signs Vital Sign Reading Time Taken Comments Blood Pressure 157/70 10/29/2023 9:21 AM CDT Pulse 73 10/29/2023 9:21 AM CDT Temperature 37.2 ??C (99 ??F) 10/29/2023 9:21 AM CDT Respiratory Rate - - Oxygen Saturation - - Inhaled Oxygen Concentration - - Weight 107.7 kg (237 lb 6.4 oz) 10/29/2023 9:21 AM CDT Height 165.1 cm (5' 5 ) 10/29/2023 9:21 AM CDT Body Mass Index 39.51 10/29/2023 9:21 AM CDT documented in this encounter Progress Notes * Gertrudis Kirkpatrick NP - 10/29/2023 10:00 AM CDT Patient: Britton Nielsen Date of : 1955 Date of Service: 10/28/2023 CONSULTATION Consultation at the request of Tiffanie Weiss MD for an opinion regarding lower extremity arterial disease. I have personally taken a history, reviewed pertinent testing, examined the patient, and determined the assessment and plan as outlined below. CHIEF COMPLAINT: No chief complaint on file. HISTORY OF PRESENT ILLNESS: Patient is a 68 y.o. 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 He was seen by his director of exhibit development last month and reported muscle pain and fatigue in his lower legs and thighs when standing and walking. It was thought to possibly be related to his ILD and low O2 during exertion but theywanted to rule out PVD. Has peripheral neuropathy related to his MPA and autoimmune medications. Has also been hypocalcemic recently. COLLINS from last month was 0.66 on the right and 1.01 on the left. Arterial duplex showed patent iliofemoral vessels with good waveforms and tibial disease. 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 He has chronic back and joint pain. He continues to have pain and weakness throughout his legs when he stands and walks. He feels like he tires easily. He denies rest pain or non-healing tissue loss. He had an ulcer to his left great toe that healed quickly. He reports chronic lower extremity edema, left worse than right, that also causes him discomfort. He tries to elevate his legs but does not typically wear compression socks. He takes Eliquis, aspirin and a statin. Past Medical History: Diagnosis Date Arthritis Coronary artery disease 2020 DVT (deep venous thrombosis) ([facility]) ([facility]) History of transfusion Hyperlipidemia Hypertension Overweight Renal failure Skin cancer Sleep apnea Past Surgical History: Procedure Laterality Date CARDIAC CATHETERIZATION 06/08/2020 CORONARY ARTERY BYPASS GRAFT 06/12/2020 CABG X3 SKIN CANCER EXCISION 2003 Family History Problem Relation Age of Onset Heart disease Mother Arthritis Mother Heart disease Father Arthritis Father Other (Septic ) Sister Arthritis Sister Cancer Brother Arthritis Brother Social History Tobacco Use Smoking status: Former Smokeless tobacco: Never Substance and Sexual Activity Drug use: Not Currently Sexual activity: Not on file Alcohol Use: Not At Risk (06/08/2020) AUDIT-C Frequency of Alcohol Consumption: Monthly or less Average Number of Drinks: 1 or 2 Frequency of Binge Drinking: Never Allergies as of 10/29/2023 (No Known Allergies) Current Outpatient Medications: apixaban (ELIQUIS) 5 mg tablet, Take 1 tablet (5 mg total) by mouth 2 (two) times a day, Disp: , Rfl: aspirin 81 mg enteric coated tablet, Take 1 tablet (81 mg total) by mouth daily, Disp: , Rfl: atorvastatin (LIPITOR) 40 mg tablet, Take 1 tablet (40 mg total) by mouth daily, Disp: , Rfl: calcium carbonate (TUMS) 500 mg (200 mg elemental calcium) chewable tablet, Take 1 tablet/chew tab (500 mg total) by mouth, Disp: , Rfl: calcium carbonate-vitamin D3 1500 mg (600 mg elemental) -200 units per tablet, Take 1 tablet by mouth daily, Disp: , Rfl: cyanocobalamin (Vitamin B-12) 1,000 mcg tablet, Take 1 tablet (1,000 mcg total) by mouth daily, Disp: , Rfl: cyclobenzaprine (FLEXERIL) 5 mg tablet, Take 1 tablet (5 mg total) by mouth 2 (two) times a day as needed for muscle spasms (muscle pain), Disp: , Rfl: ferrous sulfate 325 mg (65 mg of elemental iron) tablet, Take 1 tablet (325 mg total) by mouth daily, Disp: , Rfl: furosemide (LASIX) 40 mg tablet, Take 1 tablet (40 mg total) by mouth daily, Disp: , Rfl: irbesartan (AVAPRO) 300 mg tablet, Take 1 tablet (300 mg total) by mouth daily, Disp: , Rfl: labetaloL (NORMODYNE,TRANDATE) 200 mg tablet, Take 0.5 tablets (100 mg total) by mouth daily, Disp:, Rfl: methylPREDNISolone (MEDROL DOSEPACK) 4 mg Dosepack, Take as directed on package (Patient not taking: Reported on 09/09/2023), Disp: 1 packet, Rfl: 0 mycophenolate mofetil (CELLCEPT) 500 mg tablet, Take 3 tablets (1,500 mg total) by mouth dock clerk before breakfast AND 2 tablets (1,000 mg total) daily after dinner. Take 3 tabs in the am and 2 tabs at night., Disp: 150 tablet, Rfl: 1 potassium chloride ER 20 mEq CR tablet, Take 1 tablet (20 mEq total) by mouth 2 (two) times a day, Disp: , Rfl: pregabalin (LYRICA) 50 mg capsule, Take 1 capsule (50 mg total) by mouth 3 (three) times a day, Disp: , Rfl: sodium bicarbonate 650 mg tablet, Take 1 tablet (650 mg total) by mouth 2 (two) times a day, Disp: , Rfl: tadalafiL (CIALIS) 20 mg tablet, Take by mouth daily as needed, Disp: , Rfl: traMADoL (ULTRAM) 50 mg tablet, Take 1 tablet (50 mg total) by mouth every 6 (six) hours as needed for pain, Disp: , Rfl: REVIEW OF SYSTEMS: Review of Systems The patient???s vascular health history was reviewed and signed by me dated 10/29/2023. Scanned under Media. PHYSICAL EXAMINATION: Physical Exam VITAL SIGNS: Vitals BP 157/70 (BP Location: Right arm, Patient Position: Sitting) Pulse 73 Temp 37.2 ??C (99 ??F) (Temporal) Ht 165.1 cm (5' 5 ) Wt 107.7 kg (237 lb 6.4 oz) BMI 39.51 kg/m?? HENT: Normocephalic and atraumatic. Extraocular movements are intact. Moist mucus membranes. EYES: Pupils are equal and reactive to light bilaterally. NECK: Supple with no lymphadenopathy CHEST: Symmetric chest expansion with no accessory muscle usage HEART: Regular rate and rhythm. ABDOMEN: Soft, nontender, nondistended. VASCULAR: Palpable radial pulse, palpable CARD DOFFER pulses, non-palpable pedal pulses, +1 edema LLE, trace edema RLE MUSCULOSKELETAL: Warm NEURO: Grossly intact motor exam. SKIN: No visible rashes. No wounds noted. VASCULAR LABS: I personally reviewed the COLLINS and arterial duplex. RADIOLOGY: I personally reviewed the spine Xrays. Patient Active Problem List Diagnosis Stage 3b chronic kidney disease (HCC) Family history of early CAD Gastrointestinal hemorrhage associated with peptic ulcer Chronic deep vein thrombosis (DVT) of proximal vein of lower extremity (HCC) Mixed hyperlipidemia Hypertension S/P CABG x 3 BMI 35.0-35.9,adult Morbid (severe) obesity due to excess calories (HCC) Microscopic polyangiitis (HCC) Interstitial lung disease (CMS/HCC) (HCC) Pain in both lower extremities GOLDSTEIN (dyspnea on exertion) High risk medication use Long-term use of immunosuppressant medication ASSESSMENT/PLAN: Britton Nielsen is a 68 y.o. male patient with ILD, MPA vasculitis, DVT and PE (2018- on Eliqu), CAD s/p CABG, and CKD who presents for evaluation of PVD. He reports muscle pain and fatigue in his lower legs and thighs when standing and walking. -I personally and independently reviewed COLLINS and arterial duplex. Iliofemoral vessels appeared patent without any significant stenosis. He has tibial disease, right > left. -In the absence of rest pain or non-healing tissue loss, intervention is not recommended for tibialdisease. Any intervention at that level will not last long-term. -His leg pain when standing and walking is unlikely to be due to isolated tibial disease. He endorses chronic back pain, MPA vasculitis, degenerative disc disease, deconditioning and osteoarthritis, all of which can contribute to leg/muscle pain and weakness. Recommend he continue workup and treatment of these conditions and consider PT. -For PVD, we generally recommend a graduated exercise regimen where he walks and pushes past the pain to aid in collateral formation. This would also help with his debility. However, if the pain is more related to his back, it could further exacerbate it. -Continue neuropathic agents for peripheral neuropathy -He already is prescribed aspirin and a statin, which are also indicated for medical management of PVD. Also takes Eliquis for history of DVT/PE -Has chronic lower extremity edema that causes him discomfort and makes walking more difficulty. Discussed wearing medium grade compression socks and elevating legs when sitting throughout the day. Offered him a venous reflux study to see if he could benefit from any vein procedures. He would like to try conservative management first. Weight loss may also improve his edema. -Follow up in 1 year with COLLINS or sooner with rest pain or non-healing tissue loss or if he would like evaluation for venous insufficiency with a venous reflux study Total time: 45 minutes. This includes time spent with the patient during the visit as well as time spent before and after the visit reviewing the chart, documenting the encounter, making phone calls,reviewing studies, etc Thank you for allowing us to participate in the care of this patient. If you have any questions, please don't hesitate to call. 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) Unspecified diffuse connective tissue disease Morbid (severe) obesity due to excess calories (HCC) documented in this encounter Discontinued Medications Medication Sig Discontinue Reason Start Date End Da te methylPREDNISolone (MEDROL DOSEPACK) 4 mg Dosepack Take as directed on package Therapy completed 08/19/2023 10/29/2023 documented as of this encounter Orders Outpatient Referral Count Last Ordered Date Fir st Ordered Date AMB REFERRAL TO VASCULAR SURGERY 1 10/29/19 24 documented in this encounter Care Teams Chief Station Engineer Relationship Specialty Start Date End Date Scott Oneill MD PCP - General Internal Medicine 04/27/20 documented as of this encounter
--- OUTSIDE RECORDS SUMMARY | 2024-04-04 01:40 | XMS_ITS | Encounter Summary ---
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 Gender Identity Male 12/24/2023 11:25 AM CDT Sexual Orientation Straight 12/24/2023 11 :25 AM CDT 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 Start Date Job End Date [employer], 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, 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 on file Not on file Not on file documented as of this encounter Plan of Treatment Not on file documented as of this encounter Procedures Procedure Name Priority Date/Time Associated Diagnosis Comments SCAN - RADIOLOGY/IMAGING 09/12/2023 documented in this encounter Results * SCAN - RADIOLOGY/IMAGING (09/12/2023) Anatomical Region Laterality Modality Other us Provider Scanning Final Result documented in this encounter Visit Diagnoses Not on filedocumented in this encounter Care Teams Control Panel Operator Relationship Specialty Start Date End Date Scott Oneill MD PCP - General Internal Medicine 04/27/20 documented as of this encounter
--- OUTSIDE RECORDS SUMMARY | 2024-04-04 01:40 | XMS_ITS | Encounter Summary ---
Author Organization 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, 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
--- OUTSIDE RECORDS SUMMARY | 2024-04-04 01:40 | XMS_ITS | Encounter Summary ---
Author Organization [facility] Address [address] [place] [address] Phone Care Team Providers Care Home Health Care Social Worker Name Role Phone Scott Oneill MD Primary Care Provider [phone] Reason for Referral * Diagnostic Imaging (Routine) - Closed Specialty Diagnoses / Procedures Referred By Contac t Referred To Contact Diagnoses PVD (peripheral vascular disease) (HCC) Procedures US Arterial Duplex [place] [address] [address] [address] Phone: tel: fax: [address] [address] Referral ID Status Reason Start Date Expiration Date Visits Re quested Visits Authorized [id number] Closed 10/09/2023 11/07/2024 1 1 Encounter Details Date Type Department Care Team (Late st Contact Info) Description 10/09/2023 Orders Only [facility] Surgery [address] [place] [address] Medical Office Building [address] [place] [phone] [place] [address] [address], [place] [address] PVD (peripheral vascular disease) (HCC) (Primary Dx) Social History Tobacco Use [...] on file 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 Gender Identity Male 12/24/2023 11:25 AM CDT Sexual Orientation Straight 12/24/2023 11 :25 AM CDT 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 Start Date Job End Date [employer], 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, 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 Not on file Not on file Not on file documented as of this encounter Plan of Treatment Not on file documented as of this encounter Results * US Arterial Duplex Lower Extremity Bilateral (10/24/2023 12:49 PM CDT) Anatomical Region Laterality Modality Vascular Bilateral Ultrasound 10/24/2023 9:49 AM CDT Narrative 10/25/2023 8:56 PM CDT [facility] - Department of Vascular Surgery, Vascular Laboratory [address] [place] [address] [place] Lower Extremity Arterial Duplex Report Patient Name: BRITTON NIELSEN : 1955 Study Date: 10/24/2023 9:49:17 AM Gender: M Tech: Location: [facility] Ref Provider: YUSEF ROCA ?Quality: Adequate Order Provider: YUSEF ROCA PROCEDURES: Arterial Report: Bilateral Lower Extremity Arterial Duplex Exam. INDICATIONS: PVD (peripheral vascular disease). Measurements: Right Lower ? Left Lower Measurement ? Value ?Units ?Measurement ? Value ? Units Rt TRADE SPECIALIST Dst PSV ?136 ?cm/s ? Lt TRADE SPECIALIST Dst PSV ?120 ? cm/s Rt Profunda Prx PSV ? 165 ?cm/s ? Lt Profunda Prx PSV ? 154 ? cm/s Rt Superficial Femoral Prx PSV ?98 ? cm/s ? Lt Superficial Femoral Prx PSV ?109 ? cm/s Rt Superficial Femoral Mid PSV ?129 ?cm/s ? Lt Superficial Femoral Mid PSV ?152 ? cm/s Rt Superficial Femoral Dst PSV ?142 ?cm/s ? Lt Superficial Femoral Dst PSV ?127 ? cm/s Rt Popliteal Artery ? 85 ? cm/s ? Lt Popliteal Artery ? 115 ? cm/s Rt Post Tibial Prx PSV ?0 ?cm/s ? Lt Post Tibial Prx PSV ?214 ? cm/s Rt Post Tibial Mid PSV ?30 ? cm/s ? Lt Post Tibial Mid PSV ?191 ? cm/s Rt Post Tibial Dst PSV ?34 ? cm/s ? Lt Post Tibial Dst PSV ?155 ? cm/s Rt Ant Tibial Prx PSV ? 54 ? cm/s ? Lt Ant Tibial Prx PSV ? 88 ?cm/s Rt Ant Tibial Mid PSV ? 39 ? cm/s ? Lt Ant Tibial Mid PSV ? 0 ? cm/s Rt Ant Tibial Dst PSV ? 0 ?cm/s ? Lt Ant Tibial Dst PSV ? 0 ? cm/s Rt Peroneal Prx PSV ? 102 ?cm/s ? Lt Peroneal Prx PSV ? 228 ? cm/s Rt Peroneal Mid PSV ? 66 ? cm/s ? Lt Peroneal Mid PSV ? 50 ?cm/s Rt Peroneal Dst PSV ? 72 ? cm/s ? Lt Peroneal Dst PSV ? 29 ?cm/s Rt Dorsalis Pedis Artery ?99 ? cm/s ? Lt Dorsalis Pedis Artery ?21 ?cm/s Measurement ? Value ?Units ?Measurement ? Value ? Units Right Lower ? Left Lower - FINDINGS: Performing Transfer Table Operator Helper: Thao Ojeda RVT. Right Common Femoral: The right common femoral waveform is multiphasic. Right Profunda: The right profunda waveform is multiphasic. Right Proximal Superficial Femoral Artery: The right proximal femoral artery waveform is multiphasic. Right Mid Superficial Femoral Artery: The right mid femoral artery waveform is multiphasic. Right Distal Superficial Femoral Artery: The right distal femoral artery waveform is multiphasic. Right Popliteal: The right popliteal waveform is multiphasic. Right Posterior Tibial: The right proximal and distal posterior tibial waveform is absent. (communicating branch from the peroneal artery noted). Right Anterior Tibial: The right distal anterior tibial waveform is absent. (communicating branch from the peroneal artery noted). Right Peroneal: The right peroneal artery waveform is multiphasic. Right Dorsalis Pedis: The right dorsalis pedis artery waveform is monophasic. Left Common Femoral: The left common femoral waveform is multiphasic. Left Profunda: The left profunda waveform is multiphasic. Left Proximal Superficial Femoral Artery: The left proximal femoral artery waveform is multiphasic. Left Mid Superficial Femoral Artery: The left mid femoral artery waveform is multiphasic. Left Distal Superficial Femoral Artery: The left distal femoral artery waveform is multiphasic. Left Popliteal: The left popliteal waveform is multiphasic. Left Posterior Tibial: The left posterior tibial waveform is multiphasic. Elevated velocities throughout. Left Anterior Tibial: The left mid to distal anterior tibial waveform is multiphasic. (communicating branch from the peroneal artery noted). Left Peroneal: Systolic velocity ratio in the left proximal peroneal artery is 2.8 which is consistent with a 50-75% stenosis. Left Dorsalis Pedis: The left dorsalis pedis artery waveform is multiphasic. Comments: Heavily calcified vessels in the calf bilaterally. CONCLUSIONS: 1. See Ankle/ Brachial Index report performed on 09/19/23. 2. OCCLUDED RIGHT proximal and distal posterior tibial artery and distal anterior tibial artery. (communicating branch from the peroneal artery connecting to the KIMI and CUT OFF TENDER GLASS). 3. A 50-75% stenosis is noted on the left: proximal peroneal artery. 4. OCCLUDED LEFT mid to distal anterior tibial artery. (communicating branch from the peroneal artery noted). 5. Elevated velocities throughout the posterior tibial artery. HISTORY: HTN, HLD, CABG, DVT, CKD, Obesity, former smoker. PREVIOUS STUDIES: No previous studies for comparison. DISCLAIMER: The study images and the final report will be retained in the patient chart by the Vascular Laboratory for the legally required time period. This chart constitutes the legal record of any testing performed. ATTESTATION: I have reviewed and interpreted the pertinent images and measurements of this study. I attest to the conclusions in the final report that is provided above. Electronically Signed By: Rigoberto Stanley MD FACS 2023-10-25 20:55:26 CDT Procedure Note Rigoberto Stanley MD - 10/25/2023 [facility] - Department of Vascular Surgery,Vascular Laboratory [address] [place], [place] [id number] [place] Lower Extremity Arterial Duplex Report Patient Name: MORALES, BRITTON : 1955 Study Date: 10/24/2023 9:49:17 AM Gender: M Tech: Location: [facility] Provider: YUSEF ROCA Quality: Adequate Order Provider: YUSEF ROCA PROCEDURES: Arterial Report: Bilateral Lower Extremity Arterial Duplex Exam. INDICATIONS: PVD (peripheral vascular disease). Measurements: Right LowerLeft Lower Measurement Value Units MeasurementValue Units Rt TRADE SPECIALIST Dst PSV 136 cm/s Lt TRADE SPECIALIST Dst [id number] cm/s Rt Profunda Prx PSV 165 cm/s Lt Profunda Prx [id number] cm/s Rt Superficial Femoral Prx PSV 98 cm/s Lt Superficial FemoralPrx PSV 109 cm/s Rt Superficial Femoral Mid PSV 129 cm/s Lt Superficial FemoralMid PSV 152 cm/s Rt Superficial Femoral Dst PSV 142 cm/s Lt Superficial FemoralDst PSV 127 cm/s Rt Popliteal Artery 85 cm/s Lt Popliteal [id number] cm/s Rt Post Tibial Prx PSV 0 cm/s Lt Post Tibial Prx [id number] cm/s Rt Post Tibial Mid PSV 30 cm/s Lt Post Tibial Mid [id number] cm/s Rt Post Tibial Dst PSV 34 cm/s Lt Post Tibial Dst [id number] cm/s Rt Ant Tibial Prx PSV 54 cm/s Lt Ant Tibial Prx PSV88 cm/s Rt Ant Tibial Mid PSV 39 cm/s Lt Ant Tibial Mid PSV0 cm/s Rt Ant Tibial Dst PSV 0 cm/s Lt Ant Tibial Dst PSV0 cm/s Rt Peroneal Prx PSV 102 cm/s Lt Peroneal Prx [id number] cm/s Rt Peroneal Mid PSV 66 cm/s Lt Peroneal Mid PSV50 cm/s Rt Peroneal Dst PSV 72 cm/s Lt Peroneal Dst PSV29 cm/s Rt Dorsalis Pedis Artery 99 cm/s Lt Dorsalis PedisArtery 21 cm/s Measurement Value Units MeasurementValue Units Right LowerLeft Lower - FINDINGS: Performing Transfer Table Operator Helper: Thao Ojeda RVT. Right Common Femoral: The right common femoral waveform is multiphasic. Right Profunda: The right profunda waveform is multiphasic. Right Proximal Superficial Femoral Artery: The right proximal femoral artery waveform is multiphasic. Right Mid Superficial Femoral Artery: The right mid femoral artery waveform is multiphasic. Right Distal Superficial Femoral Artery: The right distal femoral artery waveform is multiphasic. Right Popliteal: The right popliteal waveform is multiphasic. Right Posterior Tibial: The right proximal and distal posterior tibial waveform is absent.(communicating branch from the peroneal artery noted). Right Anterior Tibial: The right distal anterior tibial waveform is absent. (communicating branchfrom the peroneal artery noted). Right Peroneal: The right peroneal artery waveform is multiphasic. Right Dorsalis Pedis: The right dorsalis pedis artery waveform is monophasic. Left Common Femoral: The left common femoral waveform is multiphasic. Left Profunda: The left profunda waveform is multiphasic. Left Proximal Superficial Femoral Artery: The left proximal femoral artery waveform is multiphasic. Left Mid Superficial Femoral Artery: The left mid femoral artery waveform is multiphasic. Left Distal Superficial Femoral Artery: The left distal femoral artery waveform is multiphasic. Left Popliteal: The left popliteal waveform is multiphasic. Left Posterior Tibial: The left posterior tibial waveform is multiphasic. Elevated velocitiesthroughout. Left Anterior Tibial: The left mid to distal anterior tibial waveform is multiphasic.(communicating branch from the peroneal artery noted). Left Peroneal: Systolic velocity ratio in the left proximal peroneal artery is 2.8 whichis consistent with a 50-75% stenosis. Left Dorsalis Pedis: The left dorsalis pedis artery waveform is multiphasic. Comments: Heavily calcified vessels in the calf bilaterally. CONCLUSIONS: 1. See Ankle/ Brachial Index report performed on 09/19/23. 2. OCCLUDED RIGHT proximal and distal posterior tibial artery and distalanterior tibial artery. (communicating branch from the peroneal artery connecting to theATA and CUT OFF TENDER GLASS). 3. A 50-75% stenosis is noted on the left: proximal peroneal artery. 4. OCCLUDED LEFT mid to distal anterior tibial artery. (communicatingbranch from the peroneal artery noted). 5. Elevated velocities throughout the posterior tibial artery. HISTORY: HTN, HLD, CABG, DVT, CKD, Obesity, former smoker. PREVIOUS STUDIES: No previous studies for comparison. DISCLAIMER: The study images and the final report will be retained in the patientchart by the Vascular Laboratory for the legally required time period. This chartconstitutes the legal record of any testing performed. ATTESTATION: I have reviewed and interpreted the pertinent images and measurements ofthis study. I attest to the conclusions in the final report that is provided above. Electronically Signed By: Rigoberto Stanley MD [facility] 2023-10-25 20:55:26 CDT us Yusef Roca MD IM US PROCEDURES Final Resu lt documented in this encounter Visit Diagnoses Diagnosis PVD (peripheral vascular disease) (HCC)- Primary Unspecified peripheral vascular disease PVD (peripheral vascular disease) (HCC) Unspecified peripheral vascular disease documented in this encounter Care Teams Home Health Care Social Worker Relationship Specialty Start Date End Date Scott Oneill MD PCP - General Internal Medicine 04/27/20 documented as of this encounter
--- OUTSIDE RECORDS SUMMARY | 2024-04-04 01:40 | XMS_ITS | Encounter Summary ---
Author Organization [facility] Address [address] [place] [address] Phone Care Team Providers Care Registered Radiologic Technologist Name Role Phone Scott Oneill MD Primary Care Provider [phone] Reason for Visit * Reason Onset Date Comments Labs Only 09/18/2023 Encounter Details Date Type Department Care Team (Late st Contact Info) Description 09/18/2023 Documentation 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 If no further hemoptysis will increase mycophenolate to 1500 mg in the morning and a 1000 mg in the evening with repeat labs in 2 weeks. Review of outside hospital chest x-ray does not show any focal consolidations. documented in this encounter Plan of Treatment Not on file documented as of this encounter Visit Diagnoses Not on filedocumented in this encounter Care Teams Registered Radiologic Technologist Relationship Specialty Start Date End Date Scott Oneill MD PCP - General Internal Medicine 04/27/20 documented as of this encounter
--- OUTSIDE RECORDS SUMMARY | 2024-04-04 01:40 | XMS_ITS | Encounter Summary ---
Author Organization 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 Also faxed CXR order to # [phone] and informed patient that CXR are walk in only, no appt needed. documented in this encounter Plan of Treatment Not on file documented as of this encounter Visit Diagnoses Not on filedocumented in this encounter Care Teams President Celebrity Acquistion Relationship Specialty Start Date End Date Scott Oneill MD PCP - General Internal Medicine 04/27/20 documented as of this encounter
--- OUTSIDE RECORDS SUMMARY | 2024-04-04 01:40 | XMS_ITS | Encounter Summary ---
Author Organization [facility] Address [address] [place] [address] Phone Care Team Providers Care Information Technology Coordinator Name Role Phone Scott Oneill MD Primary Care Provider [phone] Reason for Visit * Reason Onset Date Comments Medical Records Request 08/19/2023 NEPHROLO GY NOTES. Encounter Details Date Type Department Care Team (Late st Contact Info) Description 08/19/2023 Telephone [facility] Rheumatology [address] [facility] Advanced Medicine 5th [place] [address] [place] [address] Tiffanie Weiss MD [address] [place] [address] Medical Records Request (NEPHROLOGY NOTES. 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 documented in this encounter Plan of Treatment Not on file documented as of this encounter Visit Diagnoses Not on filedocumented in this encounter Care Teams Information Technology Coordinator Relationship Specialty Start Date End Date Scott Oneill MD PCP - General Internal Medicine 04/27/20 documented as of this encounter
--- OUTSIDE RECORDS SUMMARY | 2024-04-04 01:40 | XMS_ITS | Encounter Summary ---
Author Organization [facility] Address [address] [place] [address] Phone Care Team Providers Care Radiologic Tech Name Role Phone Scott Oneill MD Primary Care Provider [phone] Encounter Details Date Type Department Care Team (Late st Contact Info) Description 09/23/2023 Orders Only [facility] Rheumatology [address] [facility] Advanced Medicine 5th [place] [address] [place] [address] Unknown, Notinfile Social History Tobacco Use Types Packs/Day Years [...] on file 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 Gender Identity Male 12/24/2023 11:25 AM CDT Sexual Orientation Straight 12/24/2023 11 :25 AM CDT 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 Start Date Job End Date [employer], 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, 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 Not on file Not on file Not on file documented as of this encounter Plan of Treatment Not on file documented as of this encounter Procedures Procedure Name Priority Date/Time Associated Diagnosis Comments SCAN - LABS Routine 09/04/2023 11:56 AM CDT documented in this encounter Results * SCAN - LABS (09/04/2023 11:56 AM CDT) us Notinfile Unknown Final Result EXTERNAL LAB documented in this encounter Visit Diagnoses Not on filedocumented in this encounter Care Teams Radiologic Tech Relationship Specialty Start Date End Date Scott Oneill MD PCP - General Internal Medicine 04/27/20 documented as of this encounter
--- OUTSIDE RECORDS SUMMARY | 2024-04-04 01:40 | XMS_ITS | Encounter Summary ---
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 Gender Identity Male 12/24/2023 11:25 AM CDT Sexual Orientation Straight 12/24/2023 11 :25 AM CDT 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
--- OUTSIDE RECORDS SUMMARY | 2024-04-04 01:40 | XMS_ITS | Encounter Summary ---
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 She will fax CBC results. Spoke with Darryn in Radiology. She will fax CXR report and push CXR image. Stacey ONTIVEROS updated. 10:06 AM Lab results and CXR report received and passed to Dr. Chacko. CXR image has been nominated. Dr. Chacko updated. documented in this encounter Plan of Treatment Not on file documented as of this encounter Visit Diagnoses Not on filedocumented in this encounter Care Teams Servicer Relationship Specialty Start Date End Date Scott Oneill MD PCP - General Internal Medicine 04/27/20 documented as of this encounter
--- OUTSIDE RECORDS SUMMARY | 2024-04-04 01:40 | XMS_ITS | Encounter Summary ---
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 Gender Identity Male 12/24/2023 11:25 AM CDT Sexual Orientation Straight 12/24/2023 11 :25 AM CDT 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 Start Date Job End Date [employer], 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 Bernal's 08/06/23 note, Will increase mycophenolate to 1000 mg in the morning and 500 mg in the evening. Will repeat labs in 2 weeks. Given impaired creatinine clearance will not go above a 1000 mg b.i.d. on mycophenolate dosing. Order sent for mycophenolate 1000mg in the morning and 500mg in the evening. ----- Message from DEVEN Blanca sent at 08/15/2023 10:44 AM CDT ----- Regarding: Refill Request Contact: Maribel at [facility] in [place], [place] is requesting a refill on Mycophenolate 500 mg. Thanks, Yvonne documented in this encounter Plan of Treatment Not on file documented as of this encounter Visit Diagnoses Not on filedocumented in this encounter Discontinued Medications Medication Sig Discontinue Reason Start Date End Da te mycophenolate mofetil (CELLCEPT) 500 mg tablet Take 1 tablet (500 mg total) by mouth 2 (two) times a day Reorder 07/18/2023 08/15/2023 documented as of this encounter Care Teams Stone Driller Relationship Specialty Start Date End Date Scott Oneill MD PCP - General Internal Medicine 04/27/20 documented as of this encounter
--- OUTSIDE RECORDS SUMMARY | 2024-04-04 01:40 | XMS_ITS | Encounter Summary ---
Author Organization [facility] Address [address] [place] [address] Phone Care Team Providers Care Strategic Manager Name Role Phone Scott Oneill MD Primary Care Provider [phone] Reason for Referral * Consultation (Routine) - Authorized Specialty Diagnoses / Procedures Referred By Rocky blancas Referred To Contact Physical Therapy Diagnoses Low back pain, unspecified back pain laterality, unspecified chronicity, unspecified whether sciatica present Chronic right SI joint pain Popping of left knee joint Tiffanie Weiss MD [address] [place] [address] Phone: tel: fax: [facility] (All Locations) Referral ID Status Reason Start Date Expiration Date Visits Requested Visits Authorized [id number] Authorized Evaluate and Treat 08/19/2023 09/17/2024 24 24 Question Answer PTRFR PT Evaluate and Treat Therapy options discussed with patient? Yes Location provided for therapy services is: Patient requested/Patient preferred Please select the performing region: [facility] (All Locations) [[id number]] # of visits: 24 Reason for Visit * Consultation (Routine) - Closed Specialty Diagnoses / Procedures Referred By Rocky blancas Referred To Contact Rheumatology Diagnoses Microscopic polyangiitis (HCC) Hernan Padron MD [address] [facility] [address] [place] [address] Phone: tel: fax: [facility] (All Locations) Referral ID Status Reason Start Date Expiration Date V isits Requested Visits Authorized [id number] Closed Specialty Services Required 04/17/2023 05/16/2024 1 1 Encounter Details Date Type Department Care Team (Late st Contact Info) Description 08/19/2023 10:00 AM CDT Office Visit [facility] Rheumatology [address] 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 Gender Identity Male 12/24/2023 11:25 AM CDT Sexual Orientation Straight 12/24/2023 11 :25 AM CDT 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 Start Date Job End Date [employer], 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, 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 Not on file Not on file Not on file documented as of this encounter Last Filed Vital Signs Vital Sign Reading Time Taken Comments Blood Pressure 150/68 08/19/2023 10:23 AM CDT Pulse 59 08/19/2023 10:23 AM CDT Temperature 36.3 ??C (97.3 ??F) 08/19/2023 10:23 AM C DT Respiratory Rate - - Oxygen Saturation 96% 08/19/2023 10:23 AM CDT Inhaled Oxygen Concentration - - Weight 103.4 kg (228 lb) 08/19/2023 10:23 AM CDT Height 165.1 cm (5' 5 ) 08/19/2023 10:23 AM CDT Body Mass Index 37.94 08/19/2023 10:23 AM CDT documented in this encounter Patient Instructions * Patient Instructions* Tiffanie Weiss MD - 08/19/2023 10:00 AM CDT Patient advised to hold Cellcept for 3-4 days and update us on his condition. documented in this encounter Ordered Prescriptions Prescription Sig Dispense Quantity Refills Last Filled Start Date End Date cyclobenzaprine (FLEXERIL) 5 mg tabletIndications: Muscle spasms of both lower extremities Take 1 tablet (5 mg total) by mouth 2 (two) times a day as needed for muscle spasms (muscle pain) 09/10/2023 cyclobenzaprine (FLEXERIL) 5 mg tablet Take 1 tablet (5 mg total) by mouth 2 (two) times a day as needed (muscle pain) 20 tablet 08/19/2023 4 methylPREDNISolone (MEDROL DOSEPACK) 4 mg Dosepack Take as directed on package 1 packet 08/19/2023 4 documented in this encounter Progress Notes * Tiffanie Weiss MD - 08/19/2023 10:00 AM CDT RHEUMATOLOGY PROGRESS NOTE DIAGNOSES: Renal limited biopsy-proven diagnosis of ANCA [...] Coronary artery disease with CABG June 2020 Chief Complaint: Follow up SUBJECTIVE: Seen in clinic for initial evaluation for polyarthralgia on 06/04/2023. Had reported exertional dyspnea for the past [address] chest showed evidence of interstitial lung disease. ILD first noted in 03/2017 as bibasilar GGO. Noted to restrictive PFTs 11/17/2020. 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 He has had cough with this exertional dyspnea. He had gross hematuria early this year. He was taken off Eliquis. He had a CT scan of the abdomen pelvis done that was unrevealing. He is now back on Eliquis. He also reports a history of GI bleed and ulcers. Reported joint pain from head to toe. States that every joint pops. Back pain is constant. Reports pain in the hands, knees, neck, back, and the shoulders. 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 Now returns for a follow-up visit. Complains of pain in the right hip and the right SI joint area. The pain seems to radiate down the leg. Started in early July. Denies any trauma. States that he has a hacking cough in the morning. Also reports mild abdominal pain with diarrhea. Believes that CellCept is causing his cough and abdominal pain. 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 Coughed up some clots followed by about 1 tbsp of blood. Review of Systems: All systems negative except as above Current Outpatient Medications Medication Sig Dispense Refill apixaban (ELIQUIS) 5 mg tablet Take 1 tablet (5 mg total) by mouth 2 (two) times a day aspirin 81 mg enteric coated tablet Take 1 tablet (81 mg total) by mouth daily atorvastatin (LIPITOR) 40 mg tablet Take 1 tablet (40 mg total) by mouth daily calcium carbonate (TUMS) 500 mg (200 mg elemental calcium) chewable tablet Take 1 tablet/chew tab (500 mg total) by mouth calcium carbonate-vitamin D3 1500 mg (600 mg elemental) -200 units per tablet Take 1 tablet by mouth daily cyanocobalamin (Vitamin B-12) 1,000 mcg tablet Take 1 tablet (1,000 mcg total) by mouth daily ferrous sulfate 325 mg (65 mg of elemental iron) tablet Take 1 tablet (325 mg total) by mouth daily furosemide (LASIX) 40 mg tablet Take 1 tablet (40 mg total) by mouth daily irbesartan (AVAPRO) 300 mg tablet Take 1 tablet (300 mg total) by mouth daily labetaloL (NORMODYNE,TRANDATE) 200 mg tablet Take 0.5 tablets (100 mg total) by mouth daily mycophenolate mofetil (CELLCEPT) 500 mg tablet Take 1000mg (2 tablets) in the morning and 500mg (1 tablet) in the evening 90 tablet 0 potassium chloride ER 20 mEq CR tablet [...] 6 (six) hours as needed for pain cyclobenzaprine (FLEXERIL) 5 mg tablet Take 1 tablet (5 mg total) by mouth 2 (two) times a day as needed (muscle pain) 20 tablet 0 methylPREDNISolone (MEDROL DOSEPACK) 4 mg Dosepack Take as directed on package 1 packet 0 No current facility-administered medications for this visit. Objective: BP 150/68 (BP Location: Right arm, Patient Position: Sitting) Pulse 59 Temp 36.3 ??C (97.3 ??F)(Oral) Ht 165.1 cm (5' 5 ) Wt 103.4 kg (228 lb) SpO2 96% BMI 37.94 kg/m?? RAPID 3 SCORE RAPID 3 SCORE: 15.8 General: alert, cooperative, no distress Skin: Rash [...] normal Normal Hip ROM: yes SI Joints: Tenderness over the R SI joint Spine: Normal alignment, no tenderness to palpation Swollen Joints: 0 Trigger/ tender Points; Tight Muscle Groups: SLR positive on the right WBC Date Value Ref Range Status 07/18/2020 4.3 3.8 - 9.9 K/cumm Final 07/17/2020 5.6 3.8 - 9.9 K/cumm Final 06/15/2020 5.2 3.8 - 9.9 K/cumm Final Total Hb, POC Date Value Ref Range Status 06/12/2020 9.0 (L) 13.0 - 17.5 g/dL Final 06/12/2020 9.2 (L) 13.0 - 17.5 g/dL Final 06/12/2020 9.3 (L) 13.0 - 17.5 g/dL Final Hgb Date Value Ref Range Status 07/18/2020 8.7 (L) 13.0 - 17.5 g/dL Final 07/17/2020 9.0 (L) 13.0 - 17.5 g/dL Final 06/15/2020 9.1 (L) 13.0 - 17.5 g/dL Final MCV Date Value Ref Range Status 07/18/2020 91.1 81.3 - 96.4 fL Final 07/17/2020 90.5 81.3 - 96.4 fL Final 06/15/2020 91.1 81.3 - 96.4 fL Final Creatinine Date Value Ref Range Status 07/18/2020 2.00 (H) 0.80 - 1.30 mg/dL Final 07/17/2020 2.14 (H) 0.80 - 1.30 mg/dL Final 06/15/2020 2.43 (H) 0.80 - 1.30 mg/dL Final Sodium Date Value Ref Range Status 07/18/2020 141 135 - 145 mmol/L Final 07/17/2020 141 135 - 145 mmol/L Final 06/15/2020 133 (L) 135 - 145 mmol/L Final Potassium, pl Date Value Ref Range Status 07/18/2020 4.3 3.3 - 4.9 mmol/L Final 07/17/2020 4.9 3.3 - 4.9 mmol/L Final 06/15/2020 4.3 3.3 - 4.9 mmol/L Final AST Date Value Ref Range Status 06/08/2020 14 10 - 50 Units/L Final ALT Date Value Ref Range Status 06/08/2020 14 7 - 55 Units/L Final Alk phos Date Value Ref Range Status 06/08/2020 87 40 - 130 Units/L Final Bilirubin, total Date Value Ref Range Status 06/08/2020 0.6 0.1 - 1.2 mg/dL Final ANCILLARY STUDIES: Latest Reference Range & Units 05/22/23 15:08 06/04/23 15:38 Complement C3, Serum 90.0 - 180.0 mg/dL 152.0 Rheumatoid factor, quant 0.1 - 15.0 IUnits/mL <10.0 ANH Positive 1:640 ANH, quant titer 1:640 ANH, interp Homogeneous MEET ab Negative Positive ! Hope Antibodies <=0.9 Ab Index <0.2 Sjogren's Anti-SS-A <=0.9 Ab Index <0.2 Sjogren's Anti-SS-B <=0.9 Ab Index <0.2 AKILAH-1 ab <20 Units <20 EJ* Negative Negative Ku Negative Negative Mi-2 antibodies* Negative Negative OJ Negative Negative PL-[address]7 Negative Negative SRP AUTOABS Negative Negative Anti U1RNP ab <20 Units <20 MDA-5 P140 ab <20 Units <20 NXP-2 P140 ab <20 Units <20 P155/140 ab <20 Units <20 Polymyositis PM-SCL ab <20 Units <20 SSA52 KD ab IgG <20 Units <20 Akilah 1 Antibody, IgG <=0.9 Ab Index <0.2 Anti-Scl70, IgG <=0.9 Ab Index <0.2 REPORT WRITER ab <=0.9 Ab Index <0.2 ANCA Negative Indeterminate ! MYELOPEROXIDASE <=0.9 Ab Index 1.2 (H) Proteinase-3 ab <=0.9 Ab Index <0.2 Anti U2 SN REPORT WRITER ab Negative Negative Fibrillarin U3 ab Negative Negative CCP Ab <=2.9 units/mL <0.5 !: Data is abnormal (H): Data is abnormally high X-ray cervical spine with flexion-extension, XR L-spine, SI joints, thoracic spine, hands: IMPRESSION: 1. Findings of diffuse idiopathic skeletal hyperostosis of the spine and sacroiliac joints with multilevel degenerative disc disease, greatest and moderate to severe C5-C6. 2. Bilateral hand and wrist polyarticular osteoarthritis, greatest and severe of the 2nd distal interphalangeal joints, right greater than left with features of erosive osteoarthritis. 3. Nonspecific small erosions of the bilateral 3rd metacarpophalangeal joints. ASSESSMENT & PLAN: ANCA Vasculitis: --Renal limited biopsy-proven diagnosis of [...] MMF was initiated for ANCA-ILD in June --reporting abdominal discomfort and increasing cough with MMF; cough would be an unusual side effect of MMF but nonetheless, patient advised to hold mycophenolate for next 3-4 days and update us on his condition --he also reported a brief episode of hemoptysis in these past few weeks; will update pulmonary of his status --patient advised to report if he has any further episodes of hemoptysis --will obtain most recent notes from renal; urinalysis in May was bland 2. R lower back pain: --likely related to DJD and DISH --steroid taper and brief course of muscle relaxant --set the patient for physical therapy The patient is to return to clinic in 2-3 months. Orders Placed This Encounter Procedures Ambulatory referral order to Physical Therapy - Standing Status: Future Standing Expiration Date: 08/18/2024 Referral Priority: Routine Referral Type: Consultation Referral Reason: Evaluate and Treat Referral Location: [facility] (All Locations) Requested Specialty: Physical Therapy Number of Visits Requested: 24 Be advised that voice recognition software has been used on this chart and inadvertent errors may occur. These may not represent a true interpretation of the dictation given. documented in this encounter Miscellaneous Notes * Addendum Note - Norma Delarosa RMA - 08/19/2023 10:00 AM CDTAddended by: NORMA DELAROSA on: 09/10/2023 11:48 AM Modules accepted: Orders documented in this encounter Plan of Treatment Scheduled Referrals Name Type Priority Associated Diagnoses Orde r Schedule Ambulatory referral order to Physical Therapy - Outpatient Referral Routine Low back pain, unspecified back pain laterality, unspecified chronicity, unspecified whether sciatica present Chronic right SI joint pain Popping of left knee joint Expected: 09/02/2023 (Approximate), Expires: 08/18/2024 documented as of this encounter Visit Diagnoses Diagnosis Low back pain, unspecified back pain laterality, unspecified chronicity, unspecified whether sciatica present- Primary Chronic right SI joint pain Disorders of sacrum Popping of left knee joint Muscle spasms of both lower extremities documented in this encounter Discontinued Medications Medication Sig Discontinue Reason Start Date End Da te pantoprazole DR (PROTONIX) 40 mg EC tablet Take 1 tablet (40 mg total) by mouth every morning Therapy completed 03/02/2023 08/19/2023 Vitamin D2 1,250 mcg (50,000 unit) capsule Take 1 capsule (50,000 Units total) by mouth once a week On Friday Therapy completed 02/11/2020 08/19/2023 cyclobenzaprine (FLEXERIL) 5 mg tablet Take 1 tablet (5 mg total) by mouth 2 (two) times a day as needed (muscle pain) 08/19/2023 09/10/2023 documented as of this encounter Care Teams Strategic Manager Relationship Specialty Start Date End Date Scott Oneill MD PCP - General Internal Medicine 04/27/20 documented as of this encounter
--- OUTSIDE RECORDS SUMMARY | 2024-04-04 01:40 | XMS_ITS | Encounter Summary ---
Author Organization [facility] Address [address] [place] [address] Phone Care Team Providers Care Economic Adviser Name Role Phone Scott Oneill MD Primary Care Provider [phone] Reason for Visit * Diagnostic Imaging (Routine) - Closed Specialty Diagnoses / Procedures Referred By Rocky t Referred To Contact Diagnoses PVD (peripheral vascular disease) (HCC) Procedures US Arterial Duplex Lower Extremity Bilateral [place]usef Roca [place] [id number] [place] [address] [address] [address] Phone: tel: fax: [facility] [id number] [place] [address] Referral ID Status Reason Start Date Expiration Date Visits Re quested Visits Authorized [id number] Closed 10/09/2023 11/07/2024 1 1 Encounter Details Date Type Department Care Team (Latest Contact Info) Description 10/24/2023 10:15 AM CDT Ancillary Procedure [facility] [address] [place] [address] Advanced Medicine 8th [place] [address] [place] [address] PVD (peripheral vascular disease) (HCC) Social History Tobacco Use Types Packs/Day [...] on file 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 Gender Identity Male 12/24/2023 11:25 AM CDT Sexual Orientation Straight 12/24/2023 11 :25 AM CDT 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 Start Date Job End Date 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[employer], 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, 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 file Not on file Not on file documented as of this encounter Plan of Treatment Not on file documented as of this encounter Procedures Procedure Name Priority Date/Time Associated Diagnosis Comments VL US ARTERIAL DUPLEX LOWER EXTREMITY BILATERAL Schedule Routine, Read Routine (OP Routine) 10/24/2023 12:49 PM CDT PVD (peripheral vascular disease) (HCC) documented in this encounter Results * US Arterial Duplex Lower Extremity Bilateral (10/24/2023 12:49 PM CDT) Anatomical Region Laterality Modality Vascular Bilateral Ultrasound 10/24/2023 9:49 AM CDT Narrative 10/25/2023 8:56 PM CDT [facility] - Department of Vascular Surgery, Vascular Laboratory [address] [place] [address] [place] Lower Extremity Arterial Duplex Report Patient Name: BRITTON NIELSEN : 1955 Study Date: 10/24/2023 9:49:17 AM Gender: M Tech: Location: [facility] Provider: YUSEF ROCA ?Quality: Adequate Order Provider: YUSEF ROCA PROCEDURES: Arterial Report: Bilateral Lower Extremity Arterial Duplex Exam. INDICATIONS: PVD (peripheral vascular disease). Measurements: Right Lower ? Left Lower Measurement ? Value ?Units ?Measurement ? Value ? Units Rt DYNAMITE RECLAIMER Dst PSV ?136 ?cm/s ? Lt DYNAMITE RECLAIMER Dst PSV ?120 ? cm/s Rt Profunda [...] Lower ? Left Lower - FINDINGS: Performing Pipe Processor: Thao Ojeda RVT. Right Common Femoral: The [...] peroneal artery connecting to the KIMI and BRAND AMBASSADOR). 3. A 50-75% stenosis is noted on [...] Procedure Note Rigoberto Stanley MD - 10/25/2023 [facility] - Department of Vascular Surgery,Vascular Laboratory [address] [place] [address] [place] Lower Extremity Arterial Duplex Report Patient Name: BRITTON NIELSEN : 1955 Study Date: 10/24/2023 9:49:17 AM Gender: M Tech: Location: [facility] Provider: YUSEF ROCA Quality: Adequate Order Provider: YUSEF ROCA PROCEDURES: Arterial Report: Bilateral Lower Extremity Arterial Duplex Exam. INDICATIONS: PVD (peripheral vascular disease). Measurements: Right LowerLeft Lower Measurement Value Units MeasurementValue Units Rt DYNAMITE RECLAIMER Dst PSV 136 cm/s Lt DYNAMITE RECLAIMER Dst [id number] cm/s Rt Profunda Prx PSV 165 cm/s Lt Profunda Prx MNN210 cm/s Rt Superficial Femoral Prx PSV 98 cm/s Lt Superficial FemoralPrx PSV 109 cm/s Rt Superficial Femoral Mid PSV 129 cm/s Lt Superficial FemoralMid PSV 152 cm/s Rt Superficial Femoral Dst PSV 142 cm/s Lt Superficial FemoralDst PSV 127 cm/s Rt Popliteal Artery 85 cm/s Lt Popliteal [id number] cm/s Rt Post Tibial Prx PSV 0 cm/s Lt Post Tibial Prx [id number] cm/s Rt Post Tibial Mid PSV 30 cm/s Lt Post Tibial Mid QDM562 cm/s Rt Post Tibial Dst PSV 34 cm/s Lt Post Tibial Dst HUN227 cm/s Rt Ant Tibial Prx PSV 54 cm/s Lt Ant Tibial Prx PSV88 cm/s Rt Ant Tibial Mid PSV 39 cm/s Lt Ant Tibial Mid PSV0 cm/s Rt Ant Tibial Dst PSV 0 cm/s Lt Ant Tibial Dst PSV0 cm/s Rt Peroneal Prx PSV 102 cm/s Lt Peroneal Prx [id number] cm/s Rt Peroneal Mid PSV 66 cm/s Lt Peroneal Mid PSV50 cm/s Rt Peroneal Dst PSV 72 cm/s Lt Peroneal Dst PSV29 cm/s Rt Dorsalis Pedis Artery 99 cm/s Lt Dorsalis PedisArtery 21 cm/s Measurement Value Units MeasurementValue Units Right LowerLeft Lower - FINDINGS: Performing Pipe Processor: Thao Ojeda RVT. Right Common Femoral: The [...] the peroneal artery connecting to theATA and BRAND AMBASSADOR). 3. A 50-75% stenosis is noted on [...] above. Electronically Signed By: Rigoberto Stanley MD [facility] 2023-10-25 20:55:26 CDT Yusef Roca MD IMG US PROCEDURES Final Resu lt documented in this encounter Visit Diagnoses Diagnosis PVD (peripheral vascular disease) (HCC) Unspecified peripheral vascular disease documented in this encounter Care Teams Economic Adviser Relationship Specialty Start Date End Date Scott Oneill MD PCP - General Internal Medicine 04/27/20 documented as of this encounter
--- OUTSIDE RECORDS SUMMARY | 2024-04-04 01:40 | XMS_ITS | Encounter Summary ---
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 Pt states that he coughed up blood one time and has since had no other episodes of hemopysis. Pt states that everything is back to baseline. Pt continues to hold MMF while he awaits a call back drom Dr. Moody team. Pt states that he left a message with Dr. Moody team last week and will call again today. MD Bernal notified. ----- Message from Marce Bernal MD sent at 08/26/2023 2:28 PM CDT ----- Can you check to see how he is doing? ----- Message ----- From: Stacey Downs Sent: 08/21/2023 11:31 AM CDT To: Marce Bernal MD Called pt with your message. He said that he saw Dr. Fam yesterday, who told him to hold the MMF through Friday d/t couhing up minimal blood. He said Dr. Fam was supposed to contact you. I asked pt to call our office with an update on Friday and whether he was told to resume or not. Let me know if you want me to do anything else. Stacey ----- Message ----- From: Marce Bernal MD Sent: 08/19/2023 3:29 PM CDT To: Stacey Downs He can go to MMF 1000 mg bid and repeat labs in 2 weeks. documented in this encounter Plan of Treatment Not on file documented as of this encounter Visit Diagnoses Not on filedocumented in this encounter Care Teams Photographic Process Screen Maker Relationship Specialty Start Date End Date Scott Oneill MD PCP - General Internal Medicine 04/27/20 documented as of this encounter
--- OUTSIDE RECORDS SUMMARY | 2024-04-04 01:40 | XMS_ITS | Encounter Summary ---
Author Organization [facility] Address [address] [place] [address] Phone Care Team Providers Care Blow Down Operator Name Role Phone Scott Oneill MD Primary Care Provider [phone] Encounter Details Date Type Department Care Team (Late st Contact Info) Description 09/11/2023 Orders Only [facility] Pulmonary [address] [facility] Advanced Medicine [address]th [place] [address] [place] [address] Nael Chacko MD [address] [place] [address] Cough, unspecified type (Primary Dx); Cough with hemoptysis Social History Tobacco Use Types Packs/Day Years [...] on file 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 He says he had labs done at [facility] a week ago. Can we try and get those please. He will also need a CXR to be done at [facility]- reason is cough with hemoptysis. Can you please order it for him. Thanks, CXR ordered. Task sent to Margret GOMES to request lab results and schedule CXR for [facility]. documented in this encounter Plan of Treatment Not on file documented as of this encounter Results * X-ray chest 2 views (02/05/2024 12:47 PM DRIVER/SALES WORKERS) Anatomical Region Laterality Modality Body, Chest N/A Computed Radiogr aphy 02/05/2024 1:34 PM DRIVER/SALES WORKERS Impressions 02/05/2024 1:44 PM DRIVER/SALES WORKERS Comparison is made to chest radiograph from [...] Neisha Franks M.D. Narrative 02/05/2024 1:44 PM DRIVER/SALES WORKERS EXAMINATION: 2 view chest radiograph Procedure Note [...] this encounter Visit Diagnoses Diagnosis Cough, unspecified type- Primary Cough with hemoptysis Cough, unspecified type Cough with hemoptysis documented in this encounter Care Teams Blow Down Operator Relationship Specialty Start Date End Date Scott Oneill MD PCP - General Internal Medicine 04/27/20 documented as of this encounter
--- OUTSIDE RECORDS SUMMARY | 2024-04-04 01:40 | XMS_ITS | Encounter Summary ---
Author Organization [facility] Address [address] [place] [address] Phone Care Team Providers Care Clothing And Textiles Teacher Name Role Phone Scott Oneill MD Primary Care Provider [phone] Reason for Visit * Reason Onset Date Comments Medical Records Request 09/12/2023 LABS Encounter Details Date Type Department Care Team (Late st Contact Info) Description 09/12/2023 Telephone [facility] Rheumatology [facility] [facility] Advanced Medicine 5th [place] [address] [place] [address] Tiffanie Weiss MD [address] [place] [address] Medical Records Request (LABS) Social History Tobacco Use Types Packs/Day Years [...] on file 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 * Telephone Encounter - Tiffanie Weiss MD - 12/12/2023 2:12 PM CDT Please have him get a CBC, CMP, ESR, C-reactive protein, urine studies, CK, aldolase, and ANCA vasculitis panel. * Telephone Encounter - Norma Choi RMA - 09/12/2023 10:43 AM CDT Images from the original note were not included. * Telephone Encounter - Norma Choi RMA - 09/12/2023 10:43 AM CDT ----- Message from Cayetano Ulrich MD PhD sent at 09/09/2023 4:12 PM CDT ----- Regarding: RE: Labs from [facility] He had some labs drawn but he will need some other labs as well. We just didn't want to repeat labsthat he already had done. ----- Message ----- From: Norma Choi RMA Sent: 09/09/2023 3:24 PM CDT To: Cayetano Ulrich MD PhD Subject: RE: Labs from [facility] Remigio, Just to clarify. Does the patient need to have labs drawn or did he have labs drawn recently at [place]? Thank you, Norma ----- Message ----- From: Cayetano Ulrich MD PhD Sent: 09/09/2023 3:02 PM CDT To: DEVEN Zavala Subject: Labs from [facility] Hi Norma, Would you be able to help Dr. Weiss and I get labs from [facility] for this patient? Thanks Cayetano documented in this encounter Plan of Treatment Not on file documented as of this encounter Visit Diagnoses Not on filedocumented in this encounter Care Teams Clothing And Textiles Teacher Relationship Specialty Start Date End Date Scott Oneill MD PCP - General Internal Medicine 04/27/20 documented as of this encounter
--- OUTSIDE RECORDS SUMMARY | 2024-04-04 01:40 | XMS_ITS | Encounter Summary ---
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 Gender Identity Male 12/24/2023 11:25 AM CDT Sexual Orientation Straight 12/24/2023 11 :25 AM CDT 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 Start Date Job End Date [employer], 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
--- OUTSIDE RECORDS SUMMARY | 2024-04-04 01:40 | XMS_ITS | Encounter Summary ---
Author Organization [facility] Address [address] [place] [address] Phone Care Team Providers Care Environmental Programs Manager Name Role Phone Scott Oneill MD Primary Care Provider [phone] Encounter Details Date Type Department Care Team (Late st Contact Info) Description 09/11/[address] [place] [address] Nael Chacko MD [address] [place] [address] Social History Tobacco Use Types Packs/Day Years [...] on file 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 He stoppped his MMF per rhematology because he had a cough (which is chronic) but produced minor hemoptysis for 2-3 days. After he stopped the MMF the hemoptysis resolved. He did not get a CXR done. He has been back on the MMF for about 7 days with no recurrence. He apparently had labwork at [facility] about a week ago. Plan: 1) Obtain labs from [place]. 2) CXR at [place] to evaluate. documented in this encounter Plan of Treatment Not on file documented as of this encounter Visit Diagnoses Not on filedocumented in this encounter Care Teams Environmental Programs Manager Relationship Specialty Start Date End Date Scott Oneill MD PCP - General Internal Medicine 04/27/20 documented as of this encounter
--- OUTSIDE RECORDS SUMMARY | 2024-04-04 01:40 | XMS_ITS | Encounter Summary ---
Author Organization [facility] Address [address] [place] [address] Phone Care Team Providers Care Feed Mixer Name Role Phone Scott Oneill MD Primary Care Provider [phone] Reason for Visit * Diagnostic Imaging (Routine) - Closed Specialty Diagnoses / Procedures Referred By Rocky t Referred To Contact Diagnoses Microscopic polyangiitis (HCC) Pain in both lower extremities Procedures US Rashad Mitchell MD PhD [address] [place] [address] Phone: tel: fax: [facility] (All Locations) Referral ID Status Reason Start Date Expiration Date Visits Re quested Visits Authorized [id number] Closed 09/09/2023 10/08/2024 1 1 Encounter Details Date Type Department Care Team (Latest Contact Info) Description 09/19/2023 10:15 AM CDT Ancillary Procedure [facility] Vascular Lab at the [place] [address] [place] [address] for Advanced Medicine 8th [place] [address] [place] [address] Microscopic polyangiitis (HCC); Pain in both lower extremities Social History Tobacco Use [...] on file 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 Gender Identity Male 12/24/2023 11:25 AM CDT Sexual Orientation Straight 12/24/2023 11 :25 AM CDT 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 Start Date Job End Date [employer], 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, 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 Not on file Not on file Not on file documented as of this encounter Plan of Treatment Not on file documented as of this encounter Procedures Procedure Name Priority Date/Time Associated Diagnosis Comments US COLLINS Schedule Routine, Read Routine (OP Routine) 09/19/2023 10:22 AM CDT Microscopic polyangiitis (HCC) Pain in both lower extremities documented in this encounter Results * US COLLINS (09/19/2023 10:22 AM CDT) Anatomical Region Laterality Modality Vascular N/A Ultrasound 09/19/2023 9:54 AM CDT Narrative 09/20/2023 12:44 PM CDT [facility] - Department of Vascular Surgery, Vascular Laboratory [address] [place] [address] Lower Extremity Arterial Doppler Report Patient Name: BRITTON NIELSEN : 1955 Study Date: 09/19/2023 9:54:00 AM Gender: M Tech: Anatoliy Garza RVBee Location: [facility] Ref Provider: RASHAD BARRAZA ?Quality: Adequate Order Provider: RASHAD BARRAZA PROCEDURES: Arterial Report: Ankle - Brachial Index Doppler exam. INDICATIONS: Pain in limb - Rt Leg, and Pain in limb - Lt Leg. Measurements: Right - ? Left - Measurement ?Value ?Units ?Measurement ?Value ? Units Rt Brachial Pressure ? 135 ?mmHg ? Lt Brachial Pressure ? 132 ? mmHg Rt CASE MAKING MACHINE OPERATOR Pressure ?89 ? mmHg ? Lt CASE MAKING MACHINE OPERATOR Pressure ?136 ? mmHg Rt DPA Pressure ?68 ? mmHg ? Lt DPA Pressure ?128 ? mmHg Rt 1st Digit Pressure ?32 ? mmHg ? Lt 1st Digit Pressure ?63 ?mmHg Rt PT COLLINS Resting ?0.66 ?Lt PT COLLINS Resting ?1.01 Rt AT COLLINS Resting ?0.5 ? Lt AT COLLINS Resting ?0.95 Rt Digit/Arm Index ? 0.24 ?Lt Digit/Arm Index ? 0.47 Measurement ?Value ?Units ?Measurement ?Value ? Units Right - ? Left - - FINDINGS: Performing Camera Supervisor: Anatoliy Garza RVT. Right Posterior Tibial Artery Analysis: The posterior tibial waveform is monophasic. Right Anterior Tibial Artery Analysis: The anterior tibial waveform is monophasic. Right Digits: The right digit waveform is dampened. Left Posterior Tibial Artery Analysis: The posterior tibial waveform is multiphasic. Left Anterior Tibial Artery Analysis: The anterior tibial waveform is multiphasic. Left Digits: The left digit waveform is dampened. CONCLUSIONS: 1. The above listed right Ankle/Brachial Index at rest is consistent with moderate peripheral arterial disease - claudication (for reference, claudication range is 0.50 -0.89). 2. The above listed left Ankle/Brachial Index at rest is within normal limits (for reference, normal resting COLLINS is 0.90 - 1.4; COLLINS >1.4 due to non-compressible arteries is not diagnostic). 3. Right toe pressure is poor for wound healing (an absolute toe pressure = or < 30mmHg may be indicative of poor wound healing potential and /or rest pain). 4. Bilateral Digit/Arm Indices are abnormal (for reference, abnormal JUAN MIGUEL is <0.6). HISTORY: Not identified. PREVIOUS STUDIES: No previous studies for comparison. [...] that is provided above. Electronically Signed By: Theo Johnson MD [facility] 2023-09-20 12:44:09 CDT Procedure Note Theo Johnson MD - 09/20/2023 [facility] - Department of Vascular Surgery,Vascular Laboratory [address] [place] [address] Lower Extremity Arterial Doppler Report Patient Name: BRITTON NIELSEN : 1955 Study Date: 09/19/2023 9:54:00 AM Gender: M Tech: Anatoliy Garza Bee Location: [facility] Ref Provider: RASHAD BARRAZA Quality: Adequate Order Provider: ARSHAD BARRAZA PROCEDURES: Arterial Report: Ankle - Brachial Index Doppler exam. INDICATIONS: Pain in limb - Rt Leg, and Pain in limb - Lt Leg. Measurements: Right - Left- Measurement Value Units Measurement ValueUnits Rt Brachial Pressure 135 mmHg Lt Brachial Pressure 132mmHg Rt CASE MAKING MACHINE OPERATOR Pressure 89 mmHg Lt CASE MAKING MACHINE OPERATOR Pressure 136mmHg Rt DPA Pressure 68 mmHg Lt DPA Pressure 128mmHg Rt 1st Digit Pressure 32 mmHg Lt 1st Digit Pressure 63mmHg Rt PT COLLINS Resting 0.66 Lt PT COLLINS Resting 1.01 Rt AT COLLINS Resting 0.5 Lt AT COLLINS Resting 0.95 Rt Digit/Arm Index 0.24 Lt Digit/Arm Index 0.47 Measurement Value Units Measurement ValueUnits Right - Left- - FINDINGS: Performing Camera Supervisor: Anatoliy Garza RVT. Right Posterior Tibial Artery Analysis: The posterior tibial waveform is monophasic. Right Anterior Tibial Artery Analysis: The anterior tibial waveform is monophasic. Right Digits: The right digit waveform is dampened. Left Posterior Tibial Artery Analysis: The posterior tibial waveform is multiphasic. Left Anterior Tibial Artery Analysis: The anterior tibial waveform is multiphasic. Left Digits: The left digit waveform is dampened. CONCLUSIONS: 1. The above listed right Ankle/Brachial Index at rest is consistent withmoderate peripheral arterial disease - claudication (for reference, claudicationrange is 0.50 -0.89). 2. The above listed left Ankle/Brachial Index at rest is within normallimits (for reference, normal resting COLLINS is 0.90 - 1.4; COLLINS >1.4 due tonon-compressible arteries is not diagnostic). 3. Right toe pressure is poor for wound healing (an absolute toe pressure= or < 30mmHg may be indicative of poor wound healing potential and /or rest pain). 4. Bilateral Digit/Arm Indices are abnormal (for reference, abnormal DAIis <0.6). HISTORY: Not identified. PREVIOUS STUDIES: No previous studies for comparison. [...] that is provided above. Electronically Signed By: Theo Johnson MD [facility] 2023-09-20 12:44:09 CDT us Rashad Barraza MD PhD IMG US PROCEDURES F inal Result documented in this encounter Visit Diagnoses Diagnosis Microscopic polyangiitis (HCC) Polyarteritis nodosa Pain in both lower extremities documented in this encounter Care Teams Feed Mixer Relationship Specialty Start Date End Date Scott Oneill MD PCP - General Internal Medicine 04/27/20 documented as of this encounter
--- OUTSIDE RECORDS SUMMARY | 2024-04-04 01:40 | XMS_ITS | Encounter Summary ---
Author Organization [facility] Address [address] [place] [address] Phone Care Team Providers Care Bricklayer Paving Brick Name Role Phone Scott Oneill MD Primary Care Provider [phone] Reason for Referral * Diagnostic Imaging (Routine) - Closed Specialty Diagnoses / Procedures Referred By Rocky blancas Referred To Contact Diagnoses Microscopic polyangiitis (HCC) Pain in both lower extremities Procedures US COLLINS Rashad Barraza MD PhD [address] [place] [address] Phone: tel: fax: [facility] (All Locations) Referral ID Status Reason Start Date Expiration Date Visits Re quested Visits Authorized [id number] Closed 09/09/2023 10/08/2024 1 1 Reason for Visit * Consultation (Routine) - Closed Specialty Diagnoses / Procedures Referred By Rocky blancas Referred To Contact Rheumatology Diagnoses Microscopic polyangiitis (HCC) Hernan Padron MD [address] [facility] [address] [place] [address] Phone: tel: fax: [facility] (All Locations) Referral ID Status Reason Start Date Expiration Date V isits Requested Visits Authorized [id number] Closed Specialty Services Required 04/17/2023 05/16/2024 1 1 Encounter Details Date Type Department Care Team (Latest Contact Info) Description 09/09/2023 1:30 PM CDT Office Visit [facility] Rheumatology [address] 5th [place] [address] [place] [address] Microscopic polyangiitis (HCC) (Primary Dx); Interstitial lung disease (CMS/HCC) (HCC); Pain in both lower extremities; GOLDSTEIN (dyspnea on exertion); High risk medication use; Long-term use of immunosuppressant medication Social History Tobacco Use Types Packs/Day Years [...] on file Legal Sex Male 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 Gender Identity Male 12/24/2023 11:25 AM CDT Sexual Orientation Straight 12/24/2023 11 :25 AM CDT 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 Start Date Job End Date [employer], 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, 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 Not on file Not on file Not on file documented as of this encounter Last Filed Vital Signs Vital Sign Reading Time Taken Comments Blood Pressure 154/68 09/09/2023 1:21 PM CDT Pulse 94 09/09/2023 1:21 PM CDT Temperature 36.5 ??C (97.7 ??F) 09/09/2023 1:21 PM CD T Respiratory Rate - - Oxygen Saturation - - Inhaled Oxygen Concentration - - Weight 101.9 kg (224 lb 9.6 oz) 09/09/2023 1:21 PM CDT Height 165.1 cm (5' 5 ) 09/09/2023 1:21 PM CDT Body Mass Index 37.38 09/09/2023 1:21 PM CDT documented in this encounter Progress Notes * Rashad Barraza MD PhD - 09/09/2023 1:30 PM CDT [employer] [facility] [employer] [facility] Division of Rheumatology Return Office Visit 09/09/2023 Britton Nielsen is a 68 y.o. 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 Subjective/Interval History: At last visit, the patient was complaining of worsened productive cough with 1 episode of hemoptysis small volume. Today he says the cough is a chronic cough in the morning productive of clear sputum. He does confirm today did have an episode of small volume hemoptysis. He discontinued mycophenolate as planned for about 1 week and reports not noticing a change. He has since restarted CellCept andis not taking 1 g b.i.d.. Interestingly, the patient called the office in between visits saying that holding CellCept resolved the symptoms of which she was complaining at last visit. The patient says that he currently has shortness of breath and muscle pain with walking or exertion. He reports needing oxygen after pushing a tailor at his house. Muscle pain is present int he thighs and calves mostly and resolves with rest. The pain down the left side of his leg that he was having last visit has resolved. He does have pain in many joints that he contributes to getting old. ROS: All systems negative other than described [...] as needed (muscle pain) 20 tablet 0 ferrous sulfate 325 mg (65 mg of [...] 6 (six) hours as needed for pain methylPREDNISolone (MEDROL DOSEPACK) 4 mg Dosepack Take as directed on package (Patient not taking:Reported on 09/09/2023) 1 packet 0 No current facility-administered medications on file prior to visit. ALLERGIES: No Known Allergies OBJECTIVE: Physical Examination: Vitals: BP 154/68 (BP Location: Left arm, Patient Position: Sitting) Pulse 94 Temp 36.5 ??C (97.7 ??F) (Oral) Ht 165.1 cm (5' 5 ) Wt 101.9 kg (224 lb 9.6 oz) BMI 37.38 kg/m?? General: NAD, A & Ox3. HEENT: EOMs intact. No oral ulcerations, no nasal ulcerations or crusting, No nasal or oral signs of recent bleeding, No LAD, bilateral perforated tympanic membranes Resp: No difficulty breathing, no audible wheezes or abnormal sounds Cardiovascular: Radial pulses palpable and equal with normal rate and rhythm Ext: No edema. No cyanosis or clubbing Neuro: Gait Normal. Moves all limbs independently, strength appropriate and equal in all major muscle groups bilaterally Skin: No rash. No ulcers on exposed skin Musculoskeletal: PIPs, DIPs, MCPs, wrists, elbows, shoulders, knees, ankles were examined and were normal except those listed below. -Swelling: -Tenderness: -Deformity: [place] Vasculitis Score 09/09/2023 1500 New/Worsening Symptom Total Score: 0 Persistent Symptom Total Score: 0 VDI = 2 Information/Data Review: I have reviewed the below tests and notes Oncology note Vitamin D level July ASSESSMENT/PLAN: ANCA Vasculitis: --Renal limited biopsy-proven diagnosis [...] days and update us on his condition --Tympanic Membrane peroration could be part of his disease previously unrecognized as such. --No signs of active disease currently --Continue MMF 1g BID PO --Continue to see pulmonology for co-management --He had recent labs done at [facility] that we will try to obtain: He needs ANCA, CBC, CMP,ESR, CRP, UA, Urine protein/Creatinine ratio, CK and Aldolase. What he has not had done at [facility] need to be done. 2. Muscle pain and Fatigue There are several possible causes of this. It could be related to his pulmonary disease and low oxygenation during exertion. Could be due to PVD or muscle inflammation. --Obtain ABIs, CK and Aldolase. Return to clinic in 3 months Rashad Barraza MD PhD Fellow [facility], Division of Rheumatology documented in this encounter Plan of Treatment Not on file documented as of this encounter Results * US COLLINS (09/19/2023 10:22 AM CDT) Anatomical Region Laterality Modality Vascular N/A Ultrasound 09/19/2023 9:54 AM CDT Narrative 09/20/2023 12:44 PM CDT [facility] - Department of Vascular Surgery, Vascular Laboratory [address] [place] [address] Lower Extremity Arterial Doppler Report Patient Name: BRITTON NIELSEN : 1955 Study Date: 09/19/2023 9:54:00 AM Gender: M Tech: Anatoliy Garza T Location: [facility] Ref Provider: RASHAD BARRAZA ?Quality: Adequate Order Provider: RASHAD BARRAZA PROCEDURES: Arterial Report: Ankle - Brachial Index Doppler exam. INDICATIONS: Pain in limb - Rt Leg, and Pain in limb - Lt Leg. Measurements: Right - ? Left - Measurement ?Value ?Units ?Measurement ?Value ? Units Rt Brachial Pressure ? 135 ?mmHg ? Lt Brachial Pressure ? 132 ? mmHg Rt STRINGER MACHINE TENDER Pressure ?89 ? mmHg ? Lt STRINGER MACHINE TENDER Pressure ?136 ? mmHg Rt DPA Pressure [...] - ? Left - - FINDINGS: Performing Hand Tapper: Anatoliy Garza RVT. Right Posterior Tibial Artery [...] above. Electronically Signed By: Theo Johnson MD FACS 2023-09-20 12:44:09 CDT Procedure Note Theo Johnson MD - 09/20/2023 [facility] - Department of Vascular Surgery,Vascular Laboratory [address] [place] [address] Lower Extremity Arterial Doppler Report Patient Name: BRITTON NIELSEN : 1955 Study Date: 09/19/2023 9:54:00 AM Gender: M Tech: Anatoliy Garza RVT Location: [facility] Ref Provider: RASHAD BARRAZA Quality: Adequate Order Provider: RASHAD BARRAZA PROCEDURES: Arterial Report: Ankle - Brachial Index Doppler exam. INDICATIONS: Pain in limb - Rt Leg, and Pain in limb - Lt Leg. Measurements: Right - Left- Measurement Value Units Measurement ValueUnits Rt Brachial Pressure 135 mmHg Lt Brachial Pressure 132mmHg Rt STRINGER MACHINE TENDER Pressure 89 mmHg Lt STRINGER MACHINE TENDER Pressure 136mmHg Rt DPA Pressure 68 mmHg Lt DPA Pressure 128mmHg Rt 1st Digit Pressure 32 mmHg Lt 1st Digit Pressure 63mmHg Rt PT COLLINS Resting 0.66 Lt PT COLLINS Resting 1.01 Rt AT COLLINS Resting 0.5 Lt AT COLLINS Resting 0.95 Rt Digit/Arm Index 0.24 Lt Digit/Arm Index 0.47 Measurement Value Units Measurement ValueUnits Right - Left- - FINDINGS: Performing Hand Tapper: Anatoliy Garza RVT. Right Posterior Tibial Artery [...] above. Electronically Signed By: Theo Johnson MD [facility] 2023-09-20 12:44:09 CDT Rashad Barraza MD PhD IMG US PROCEDURES F inal Result documented in this encounter Visit Diagnoses Diagnosis Microscopic polyangiitis (HCC)- Primary Polyarteritis nodosa Interstitial lung disease (CMS/HCC) (HCC) Postinflammatory pulmonary fibrosis Pain in both lower extremities GOLDSTEIN (dyspnea on exertion) Other dyspnea and respiratory abnormality High risk medication use Long-term use of immunosuppressant medication Microscopic polyangiitis (HCC) Polyarteritis nodosa Pain in both lower extremities documented in this encounter Care Teams Bricklayer Paving Brick Relationship Specialty Start Date End Date Scott Oneill MD PCP - General Internal Medicine 04/27/20 documented as of this encounter
--- OUTSIDE RECORDS SUMMARY | 2024-04-04 01:41 | XMS_ITS | Encounter Summary ---
Author Organization [facility] Address [address] [place] [address] Phone Care Team Providers Care Rail Signal Designer Name Role Phone Scott Oneill MD Primary Care Provider [phone] Encounter Details Date Type Department Care Team (Late st Contact Info) Description 07/18/2023 Documentation [facility] Pulmonary [address] [place] [address] [place] [address] Gemini Goldberg MD [address] [place], [place] [id number] Social History Tobacco Use Types Packs/Day Years [...] on file 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 Gender Identity Male 12/24/2023 11:25 AM CDT Sexual Orientation Straight 12/24/2023 11 :25 AM CDT 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 Start Date Job End Date [employer], 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
--- OUTSIDE RECORDS SUMMARY | 2024-04-04 01:41 | XMS_ITS | Encounter Summary ---
Author Organization 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 Patient verbalized understanding and had no other needs at this time This RN placed new rx for MMF and placed lab orders. This RN sent task to ELISEO Oswald to fax labs [place] ----- Message from Marce Bernal MD sent at 08/06/2023 6:59 AM CDT ----- His labs are stable. Can increase mycophenolate 1000 mg in the morning and 500 mg in the evening. He will need repeat CBC and BMP in 2 weeks. Given his limited creatinine clearance we will not increase his mycophenolate beyond a 1000 mg b.i.d.. documented in this encounter Plan of Treatment Not on file documented as of this encounter Visit Diagnoses Not on filedocumented in this encounter Care Teams Training And Quality Manager Relationship Specialty Start Date End Date Scott Oneill MD PCP - General Internal Medicine 04/27/20 documented as of this encounter
--- OUTSIDE RECORDS SUMMARY | 2024-04-04 01:41 | XMS_ITS | Encounter Summary ---
Author Organization [facility] Address [address] [facility] [address] [place] [address] Phone Care Team Providers Care Policy Advisor Name Role Phone Scott Oneill MD Primary Care Provider [phone] Reason for Referral * MRI/CAT/PET Scan (Routine) - Closed Specialty Diagnoses / Procedures Referred By Rocky blancas Referred To Contact Radiology Diagnoses Microscopic polyangiitis (HCC) Procedures CT Chest High Resolution WO Contrast Marce Bernal MD [address] [address] Phone: tel: fax: [address] [address] Referral ID Status Reason Start Date Expiration Date Visits Re quested Visits Authorized [id number] Closed 08/01/2023 08/30/2024 1 1 * Procedure (Routine) - Closed Specialty Diagnoses / Procedures Referred By Rocky blancas Referred To Contact Diagnoses Microscopic polyangiitis (HCC) Procedures Pulmonary Function Test -[facility] Adult PFT Lab- [facility]; Spirometry, DLCO, Oxygen Assessment Titration; Spirometry Marce Bernal MD [address] [place] [address] Phone: tel: fax: Referral ID Status Reason Start Date Expiration Date Visits Re quested Visits Authorized [id number] Closed 08/01/2023 08/30/2024 1 1 Encounter Details Date Type Department Care Team (Late st Contact Info) Description 08/01/2023 1:00 PM CDT Office Visit [facility] Pulmonary [address] [facility] 8th [place] [address] [place] [address] Marce Bernal MD [address] [facility] [address] [place] [address] Interstitial lung disease (CMS/HCC) (HCC) (Primary Dx); Microscopic polyangiitis (HCC); Immunosuppression (HCC); Stage 3b chronic kidney disease (HCC); BMI 35.0-35.9,adult; Chronic deep vein thrombosis (DVT) of proximal vein of lower extremity, unspecified laterality (HCC) Social History Tobacco Use Types Packs/Day [...] on file Legal Sex Male 1:23 AM BLENDER / COOK Gender Identity Male 12/24/2023 11:25 AM CDT Sexual Orientation Straight 12/24/2023 11 :25 AM CDT 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 Start Date Job End Date 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, 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, 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 Not on file Not on file Not on file documented as of this encounter Last Filed Vital Signs Vital Sign Reading Time Taken Comments Blood Pressure 136/69 08/01/2023 12:56 PM CDT Pulse 55 08/01/2023 12:56 PM CDT Temperature 36.5 ??C (97.7 ??F) 08/01/2023 12:56 PM C DT Respiratory Rate 20 08/01/2023 12:56 PM CDT Oxygen Saturation 95% 08/01/2023 12:56 PM CDT Inhaled Oxygen Concentration - - Weight 104.3 kg (230 lb) 08/01/2023 12:56 PM CDT Height 165.1 cm (5' 5 ) 08/01/2023 12:56 PM CDT Body Mass Index 38.27 08/01/2023 12:56 PM CDT documented in this encounter Patient Instructions * Patient Instructions* Marce Bernal MD - 08/01/2023 1:00 PM CDT Get blood work on Friday and will increase mycophenolate. Will plan repeat CT scan at next visit. Please contact the nurse coordinator (WESTON Ibarra) at [phone] with questions. documented in this encounter Progress Notes * Marce Bernal MD - 08/01/2023 1:00 PM CDT PULMONARY MEDICINE CLINIC VISIT Britton Nielsen 1955 08/01/2023 PROBLEM LIST: MPA vasculitis. Initially manifested as [...] on CT scan Initiated mycophenolate June 2023 Obstructive sleep apnea on CPAP. CKD 3 in a setting of prior vasculitis. CAD status post CABG in 2020. Hypertension. DVTs, on Eliquis. GI bleed in 2018, status plus embolization. Neuropathy. Anemia, follows with hematology. Former smoker. INTERVAL HISTORY: Since Mr. Nielsen was last seen, his CT scan was reviewed and I will decompensate was felt to be consistent with a probable UIP pattern. Given his clinical history, it was felt that the RLD is most likely related to his vasculitis process. Therefore, mycophenolate was initiated. He started this on 07/19/2023. He is currently on 500 mg b.i.d.. He notes he was previously on mycophenolate in the past did have some issues with anemia with it. He is due to get repeat blood work done on Friday08/04/2023. He is currently tolerating it without any nausea, vomiting, or diarrhea. Hefeels like his breathing may be slightly worse than his last visit. He uses oxygen at 2 liters/minute more walking longer distances, but does not necessarily use it when moving around his house. He states he overall has a small house. He will occasionally check his saturations if he is feeling moreshort of breath, and they sometimes get down to around 80%, but not frequently. He also bleeds in 2liters/minutes oxygen with his CPAP. He notes he has quit smoking marijuana, although he uses edibles. MEDS: HOME MEDICATIONS : albuterol HFA (PROVENTIL HFA,VENTOLIN HFA,PROAIR HFA) 90 mcg/actuation inhaler Anoro Ellipta 62.5-25 mcg/actuation blister with device apixaban (ELIQUIS) 5 mg tablet aspirin 81 mg enteric coated tablet atorvastatin (LIPITOR) 20 mg tablet calcium carbonate (TUMS) 500 mg (200 mg elemental calcium) chewable tablet calcium carbonate-vitamin D3 1500 mg (600 mg elemental) -200 units per tablet cyanocobalamin (Vitamin B-12) 1,000 mcg tablet ferrous sulfate 325 mg (65 mg of elemental iron) tablet furosemide (LASIX) 40 mg tablet irbesartan (AVAPRO) 300 mg tablet labetaloL (NORMODYNE,TRANDATE) 200 mg tablet mycophenolate mofetil (CELLCEPT) [address] (PROTONIX) 40 mg EC tablet potassium chloride ER 20 mEq CR tablet pregabalin (LYRICA) 50 mg capsule sodium bicarbonate 650 mg tablet tadalafiL (CIALIS) 20 mg tablet traMADoL (ULTRAM) 50 mg tablet Vitamin D2 1,250 mcg (50,000 unit) capsule ROS: His weight is up 3-5 lb. He reports chronic chills but no fevers. He has bilateral knee pain. He has chronic lower extremity edema. PHYSICAL EXAM: Vitals BP 136/69 Pulse 55 Temp 36.5 ??C (97.7 ??F) (Oral) Resp 20 Ht 165.1 cm (5' 5 ) Wt 104.3 kg (230 lb) SpO2 95% BMI 38.27 kg/m?? GEN: No acute distress HEENT: Mallampati class 4 airway, no oropharyngeal lesions, no cervical lymphadenopathy PUL: Bibasilar inspiratory crackles, no wheeze CV: S1, S2, no murmurs rubs or gallops ABD:positive bowel sounds, soft, nontender, nondistended EXT: 1+ edema, no clubbing, no cyanosis DATA: Spirometry: Date FVC, % pred FEV1, % pred FEV1/FVC TLC DLCO 07/2023 2.54, 71% 2.23, 81% 88% 05/2023 2.60, 72% 2.35, 85% 90% 4.19, 69% 43% 03/2023 (OSH) 2.48, 69% 2.16, 78% 87% 3.17, 53% 50% (adj) 05/2020 (OSH) 2.95, 76% 2.47, 92% 84% 3.53, 63% 70% (adj) Oxygen assessment from today: Resting room air saturation was 100%. The patient walked a total of 94% feet. With walking, room air saturation yvonne was 94%. The patient required 0 lpm oxygen with exertion to maintain saturation > 88-90%. Brenton dyspnea index was 0 at rest and 0 with exertion. Heart rate was 61 at rest and 80 with exertion. Blood pressure remained stable. FEV1 remained stable. IMPRESSION: 68-year-old male with history of microscopic polyangiitis with prior renal disease who now presents with interstitial lung disease which is felt to be secondary to his vasculitis. He has initiated mycophenolate is currently on 500 mg b.i.d.. His lung function is stable. His oxygenation appears improved compared to last visit. PLAN: He will continue on his current mycophenolate dose. I offered to have his blood work drawn today but he would prefer to go locally on Friday to have it done. Once we have the results of that then we will uptitrate his mycophenolate dosing. We will need to monitor his blood counts closely as he reports previous anemia when on mycophenolate. He can continue using oxygen with heavier exertion with the CPAP. Will plan see him back in 6 months with repeat spirometry, oxygen assessment, DLCO, and high-resolution chest CT. Marce Bernal MD equipment operator/laborer documented in this encounter Plan of Treatment Not on file documented as of this encounter Results * Pulmonary Function Test - (02/05/2024 1:57 PM BLENDER / COOK) FVC PRE 2.39 L [facility] FVC %PRE PRED 67 % [facility] FEV1 PRE 2.10 L [facility] FEV1 %PRE PRED 77 % [facility] FEV1/FVC PRE 88.2 % [facility] DLCO PRE 6.9 ml/min/mmH g [facility] DLCO %PRE PRED 31 % [facility] Anatomical Region Laterality Modality PFT 02/05/2024 1:40 PM BLENDER / COOK Narrative 02/06/2024 5:40 PM BLENDER / COOK Table formatting from the original result was not included. [facility] Division of Pulmonary & Critical Care Medicine [address] [place] [address]; [place] [address]; [place], [place] ??[address]; [phone] Pulmonary Function Laboratory Pulmonary Stress Test Simple/Oxygen [...] with the written final report. PFT performed at:->[facility] Adult PFT Lab- [facility]-8D Procedure:->Spirometry Procedure:->DLCO Procedure:->Oxygen [...] and %HbO2 is age dependent. However, the [facility] Pulmonary Function Laboratory defines hypoxemia as a PaO2 <56 mm Hg or a %HbO2 <89%. us Marce Bernal MD PFT ORDERABLES Final Result * CT Chest High Resolution WO Contrast (02/05/2024 12:22 PM BLENDER / COOK) Anatomical Region Laterality Modality Chest N/A Computed Tomogra phy 02/05/2024 12:5 1 PM BLENDER / COOK Impressions 02/05/2024 12:51 PM BLENDER / COOK Diffuse fibrotic interstitial lung disease throughout the [...] Courtney Shin M.D. Narrative 02/05/2024 12:51 PM BLENDER / COOK EXAMINATION: ??Computed tomography of the chest high-resolution [...] documented in this encounter Visit Diagnoses Diagnosis Interstitial lung disease (CMS/HCC) (HCC)- Primary Postinflammatory pulmonary fibrosis Microscopic polyangiitis (HCC) Polyarteritis nodosa Immunosuppression (HCC) Stage 3b chronic kidney disease (HCC) BMI 35.0-35.9,adult Chronic deep vein thrombosis (DVT) of proximal vein of lower extremity, unspecified laterality (HCC) Microscopic polyangiitis (HCC) Polyarteritis nodosa Microscopic polyangiitis (HCC) Polyarteritis nodosa documented in this encounter Discontinued Medications Medication Sig Discontinue Reason Start Date End Da te atorvastatin (LIPITOR) 20 mg tablet Take 2 tablets (40 mg total) by mouth daily Duplicate order 06/15/2020 08/01/2023 Anoro Ellipta 62.5-25 mcg/actuation blister with device 1 puff daily 03/26/2023 08/01/2023 albuterol HFA (PROVENTIL HFA,VENTOLIN HFA,PROAIR HFA) 90 mcg/actuation inhaler INHALE 2 PUFFS BY MOUTH EVERY 4 HOURS NEEDED FOR SHORTNESS OF BREATH FOR WHEEZING 03/26/2023 08/01/2023 documented as of this encounter Historical Medications * This list may reflect changes made after this encounter. atorvastatin (LIPITOR) 40 mg tablet Take 1 tablet (40 mg total) by mouth daily 06/11/2023 added in this encounter Care Teams Policy Advisor Relationship Specialty Start Date End Date Scott Oneill MD PCP - General Internal Medicine 04/27/20 documented as of this encounter
--- OUTSIDE RECORDS SUMMARY | 2024-04-04 01:41 | XMS_ITS | Encounter Summary ---
Author Organization [facility] Address [address] [place] [address] Phone Care Team Providers Care Florist Name Role Phone Scott Oneill MD Primary Care Provider [phone] Encounter Details Date Type Department Care Team (Late st Contact Info) Description 07/18/2023 Orders Only [facility] Pulmonary [address] [facility] Advanced Medicine 8th [place] [address] [place] [address] Gemini Goldberg MD [address] [place], [place] [id number] Social History Tobacco Use Types Packs/Day Years [...] on file 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 Gender Identity Male 12/24/2023 11:25 AM CDT Sexual Orientation Straight 12/24/2023 11 :25 AM CDT 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 Start Date Job End Date [employer], 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, 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
--- OUTSIDE RECORDS SUMMARY | 2024-04-04 01:41 | XMS_ITS | Encounter Summary ---
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 Note faxed to # [phone], confirmation received. documented in this encounter Plan of Treatment Not on file documented as of this encounter Visit Diagnoses Not on filedocumented in this encounter Care Teams Rope Twisting Machine Operator Relationship Specialty Start Date End Date Scott Oneill MD PCP - General Internal Medicine 04/27/20 documented as of this encounter
--- OUTSIDE RECORDS SUMMARY | 2024-04-04 01:41 | XMS_ITS | Encounter Summary ---
Author Organization [facility] Address [address] [place] [address] Phone Care Team Providers Care Avionics Integration Engineer Name Role Phone Scott Oneill MD Primary Care Provider [phone] Encounter Details Date Type Department Care Team (Late st Contact Info) Description 06/04/2023 Orders Only [facility] Rheumatology [address] [facility] Advanced Medicine 5th [place] [address] [place] [address] Tiffanie Weiss MD [address] [place] [address] Social History Tobacco Use Types [...] on file Legal Sex Male 1:23 AM MARKETING AND DEVELOPMENT COORDINATOR Gender Identity Male 12/24/2023 11:25 AM CDT Sexual Orientation Straight 12/24/2023 11 :25 AM CDT 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 Start Date Job End Date [employer], 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 HISTOTRAC 06/04/2023 3:38 PM MARKETING AND DEVELOPMENT COORDINATOR 06/06/2023 1:45 PM MARKETING AND DEVELOPMENT COORDINATOR Narrative HISTOTRAC - 06/06/2023 1:45 PM MARKETING AND DEVELOPMENT COORDINATOR Methodology comments:HLA-B typing is performed using the reverse sequence specific oligonucleotide (r-SSO) method, which is based on an FDA approved IVD kit and validated by the [facility] HLA laboratory. Interpretive comments: HLA-B*58:01 positivity confers high risk for allopurinol-induced cutaneous adverse drug reactions (CADRs). Expected: Higher than baseline prevalences of HLA-B*58:01 have been found in patients with allopurinol-induced CADRs with a pooled odds ratio of 83 and 101 in matched and population based studies, respectively (Oncotarget 2016;7:07306-0). Testing performed at the [facility], [address] [place] [address], 5th floor, [place], [address]. [place] # [id number]. Ronda Kincaid M.D., Associate HLA Senior Sales Director Ollie Sotomayor M.D., Ph.D., HLA Senior Sales Director Skye Landaverde, Ph.D., Gerontology Aide, [facility] Current methodology and interpretive comments were last revised on 04/04/17. us Tiffanie Weiss MD LAB BLOOD ORDERABLES Final Resul t HISTOTRAC documented in this encounter Visit Diagnoses Not on filedocumented in this encounter Care Teams Avionics Integration Engineer Relationship Specialty Start Date End Date Scott Oneill MD PCP - General Internal Medicine 04/27/20 documented as of this encounter
--- OUTSIDE RECORDS SUMMARY | 2024-04-04 01:41 | XMS_ITS | Encounter Summary ---
Author Organization [facility] Address [address] [place] [address] Phone Care Team Providers Care Meat Blender Name Role Phone Scott Oneill MD Primary Care Provider [phone] Reason for Visit * Reason Onset Date Comments Medical Records Request 06/16/2023 Encounter Details Date Type Department Care Team (Late st Contact Info) Description 06/16/2023 Telephone [facility] Rheumatology [facility] Advanced Medicine 5th [place] [address] [place] [address] Tiffanie Weiss MD [address] [place] [address] Medical Records Request Social History Tobacco Use Types Packs/Day [...] on file Legal Sex Male 1:23 AM ANIMAL HOSPITAL CLERK Gender Identity Male 12/24/2023 11:25 AM CDT Sexual Orientation Straight 12/24/2023 11 :25 AM CDT 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 Start Date Job End Date [employer], 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 Mr. Nielsen is a 62-year-old, male who was in [facility]. he had JACQUELYN which turnedout [...] He isnt sure. He will check at [facility] and let me know what he is actually taking. 3. he has hyperlipidemia. he is on a statin. ldl good 4. CKD leftovers of MPA Creatinine is a bit higher. Maybe back to original baseline? Will hydrate and repeat in 2 weeks. Also clarify his meds at home. To preserve renal function: Blood pressure is good Cholesterol good in may NAGELICA/ARB will start lisinopril? See what he is really on. Low protein diet Vitamin D/PTH he is on ergo. Chol on atorvastatin BMI is too high. he should lose weight. consider pack operator or seeing PCP Plan Same diet Clarify [...] up plan to addresstobacco use is nonsmoker. * Telephone Encounter - Norma Choi CHUCKYg - 08/01/2023 2:10 PM CDT Gilmer Barnard MD - 10/03/2021 3:00 PM CDT Britton Nielsen is a pleasant 66 y.o.male. Mr. Nielsen is a 62-year-old, male who was in [facility]. he had JACQUELYN which turnedout [...] gfr 27, CBC 6.2/10/179, UA negpro negbld 01/03/2020 Cr 2.3, gfr [...] K 5.4, Co2 20, Hb 10.8, Chol 92/32/215, PTH 298, Upro 120, Impression: 1. MPA [...] too high. he should lose weight. consider pack operator or seeing PCP Plan Same diet Same [...] up plan to addresstobacco use is nonsmoker. RO * Telephone Encounter - Norma Choi RMA - 06/30/2023 2:55 PM CDT Follow up request submitted. * Telephone Encounter - Norma Choi RMA - 06/16/2023 10:31 AM CDT Images from the original note were not included. * Telephone Encounter - Norma Choi RMA - 06/16/2023 10:31 AM CDT ----- Message from Tiffanie Weiss MD sent at 06/11/2023 11:46 AM CDT ----- Please obtain noted from last [address] Tong (nephrology). TY Could you please have him repeat an ANCA vasculitis panel documented in this encounter Plan of Treatment Not on file documented as of this encounter Visit Diagnoses Not on filedocumented in this encounter Care Teams Meat Blender Relationship Specialty Start Date End Date Scott Oneill MD PCP - General Internal Medicine 04/27/20 documented as of this encounter
--- OUTSIDE RECORDS SUMMARY | 2024-04-04 01:41 | XMS_ITS | Encounter Summary ---
Author Organization [facility] Healthcare Address [address] [place] [address] Care Team Providers Care Production Trainer Name Role Phone Scott Oneill MD Primary Care Provider [phone] Reason for Referral * Diagnostic Imaging (Routine) - Closed Specialty Diagnoses / Procedures Referred By Contac t Referred To Contact Diagnoses Thoracic spine pain Procedures X-ray thoracic spine 2 views Tiffanie Weiss MD [address] [facility] [address] [address] [address] Phone: tel: fax: [address] [phone] Referral ID Status Reason Start Date Expiration Date Visits Re quested Visits Authorized [id number] Closed 06/04/2023 07/03/2024 1 1 MAKER Reason for Visit * Diagnostic Imaging (Routine) - Closed Specialty Diagnoses / Procedures Referred By Contac t Referred To Contact Diagnoses Thoracic spine pain Procedures X-ray thoracic spine 2 views Tiffanie Weiss MD [address] [facility] [address] [address] [address] Phone: tel: fax: [address] [phone] Referral ID Status Reason Start Date Expiration Date Visits Re quested Visits Authorized [id number] Closed 06/04/2023 07/03/2024 1 1 Encounter Details Date Type Department Care Team (Latest Contact Info) Description 06/04/2023 4:28 PM LOCKMAKER - 06/04/2023 11:59 PM LOCKMAKER Hospital Encounter [facility] [address] [place] [address] Tiffanie Weiss MD [facility] [address] [place] [address] Thoracic spine pain; Bilateral hand pain Discharge Disposition: Discharge to home or self [...] on file Legal Sex Male 1:23 AM LOCKMAKER Gender Identity Male 12/24/2023 11:25 AM CDT Sexual Orientation Straight 12/24/2023 11 :25 AM CDT 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 Start Date Job End Date [employer], 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, 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 Not on file Not on file Not on file documented as of this encounter Medications at Time of Discharge apixaban (ELIQUIS) 5 mg tablet Take 1 tablet (5 mg total) by mouth 2 (two) times a day aspirin 81 mg enteric coated tablet Take 1 tablet (81 mg total) by mouth daily 06/15/2020 calcium carbonate (TUMS) 500 mg (200 mg [...] 6 (six) hours as needed for pain albuterol HFA (PROVENTIL HFA,VENTOLIN HFA,PROAIR HFA) 90 mcg/actuation inhaler INHALE 2 PUFFS BY MOUTH EVERY 4 HOURS NEEDED FOR SHORTNESS OF BREATH FOR WHEEZING 03/26/2023 4 Anoro Ellipta 62.5-25 mcg/actuation blister with device 1 puff daily 03/26/2023 4 atorvastatin (LIPITOR) 20 mg tablet Take 2 tablets (40 mg total) by mouth daily 06/15/[address] (PROTONIX) 40 mg EC tablet Take 1 tablet (40 mg total) by mouth every morning 03/02/2023 4 Vitamin D2 1,250 mcg (50,000 unit) capsule Take 1 capsule (50,000 Units total) by mouth once a week On Friday02/11/2020 4 documented as of this encounter Discharge Disposition Disposition Code Departure Means Destination Discharge to home or self care documented in this encounter Plan of Treatment Not on file documented as of this encounter Procedures Procedure Name Priority Date/Time Associated Diagnosis Comments XR SACROILIAC JOINTS 3 OR MORE VIEWS Schedule Routine, Read Routine (OP Routine) 06/04/2023 4:51 PM LOCKMAKER Chronic SI joint pain XR SPINE LUMBAR COMPLETE 4 OR MORE VIEWS Schedule Routine, Read Routine (OP Routine) 06/04/2023 4:51 PM LOCKMAKER Lumbar spine pain XR SPINE CERVICAL W FLEXION AND EXTENSION 4 VIEWS Schedule Routine, Read Routine (OP Routine) 06/04/2023 4:51 PM LOCKMAKER Cervical spine pain XR HAND BILATERAL 3 OR MORE VIEWS OF EACH Schedule Routine, Read Routine (OP Routine) 06/04/2023 4:51 PM LOCKMAKER Bilateral hand pain XR SPINE THORACIC 2 VIEWS Schedule Routine, Read Routine (OP Routine) 06/04/2023 4:51 PM LOCKMAKER Thoracic spine pain documented in this encounter Results * XR Hand Bilateral 3 or More Views of Each (06/04/2023 4:51 PM LOCKMAKER) Anatomical Region Laterality Modality Upper Extremities, Hand Computed Radiography 06/04/2023 5:07 PM LOCKMAKER Impressions 06/04/2023 5:07 PM LOCKMAKER 1. ??Findings of diffuse idiopathic skeletal hyperostosis of the spine and sacroiliac joints with multilevel degenerative disc disease, greatest and moderate to severe C5-C6. 2. ??Bilateral hand and wrist polyarticular osteoarthritis, greatest and severe of the 2nd distal interphalangeal joints, right greater than left with features of erosive osteoarthritis. 3. ??Nonspecific small erosions of the bilateral 3rd metacarpophalangeal joints. Electronically signed by: Cayetano Carrizales MD Narrative 06/04/2023 5:07 PM LOCKMAKER EXAMINATION: XR SPINE CERVICAL W FLEXION AND EXTENSION 4 OR 5 VIEWS, XR SPINE LUMBAR 4 OR MORE VIEWS, XR SACROILIAC JOINTS 3 OR MORE VIEWS, XR SPINE THORACIC 2 VIEWS, XR HAND BILATERAL 3 OR MORE VIEWS OF EACH HISTORY: ??Evaluate inflammatory arthritis. FINDINGS: 4 views of the cervical spine, 2 views of the thoracic spine, and 4 views of the lumbar spine are submitted with comparison to CT 04/03/2023. ??There is straightening of the cervical lordosis. Multilevel cervical degenerative disc disease, greatest and moderate to severe C5-C6. ??No abnormal motion of the cervical spine with bending. ??Prevertebral soft tissues are normal. ??No cervical vertebral body height loss. ??Vascular calcification. ??There are midline sternotomy wires. ??Anterior flowing osteophytes of the thoracic spine. ??Multilevel mild to moderate degenerative disc disease of the thoracic spine. ??No thoracic spine vertebral body height loss. ??Multilevel anterior bridging osteophytes of the lumbar spine. ??No lumbar spine vertebral body height loss. ??Multilevel mild to moderate lumbar degenerative disc disease. ??Grade 1 anterolisthesis of L5 on S1 with partially evaluated bilateral pars defects. ??Vascular coils. 3 views of the sacroiliac joints are submitted with comparison to CT 04/03/2023. ??There is partial anterior ankylosis of the bilateral superior sacroiliac joints as seen with diffuse idiopathic skeletal hyperostosis. ??There are no erosions. ??There is a round density projecting over the right sacrum, incompletely evaluated on radiograph. 3 views of each hand are submitted without comparison. ??There is calcification of the left triangular fibrocartilage complex. ??There are erosions of the bilateral 3rd metacarpophalangeal joints. ??There is polyarticular osteoarthritis, greatest and severe of the 2nd distal interphalangeal joint right greater than left with erosive features. ??There are vascular calcifications. ??There is no acute fracture or dislocation. Procedure Note Cayetano Carrizales MD - 06/04/2023 EXAMINATION: XR SPINE CERVICAL W FLEXION AND EXTENSION 4 OR 5 VIEWS, XR SPINE LUMBAR 4 OR MORE VIEWS, XR SACROILIAC JOINTS 3 OR MORE VIEWS, XR SPINE THORACIC 2 VIEWS, XR HAND BILATERAL 3 OR MORE VIEWS OF EACH HISTORY: Evaluate inflammatory arthritis. FINDINGS: 4 views of the cervical spine, 2 views of the thoracic spine, and 4 views of the lumbar spine are submitted with comparison to CT 04/03/2023. There is straightening of the cervical lordosis. Multilevel cervical degenerative disc disease, greatest and moderate to severe C5-C6. No abnormal motion of the cervical spine with bending. Prevertebral soft tissues are normal. No cervical vertebral body height loss. Vascular calcification. There are midline sternotomy wires. Anterior flowing osteophytes of the thoracic spine. Multilevel mild to moderate degenerative disc disease of the thoracic spine. No thoracic spine vertebral body height loss. Multilevel anterior bridging osteophytes of the lumbar spine. No lumbar spine vertebral body height loss. Multilevel mild to moderate lumbar degenerative disc disease. Grade 1 anterolisthesis of L5 on S1 with partially evaluated bilateral pars defects. Vascular coils. 3 views of the sacroiliac joints are submitted with comparison to CT 04/03/2023. There is partial anterior ankylosis of the bilateral superior sacroiliac joints as seen with diffuse idiopathic skeletal hyperostosis. There are no erosions. There is a round density projecting over the right sacrum, incompletely evaluated on radiograph. 3 views of each hand are submitted without comparison. There is calcification of the left triangular fibrocartilage complex. There are erosions of the bilateral 3rd metacarpophalangeal joints. There is polyarticular osteoarthritis, greatest and severe of the 2nd distal interphalangeal joint right greater than left with erosive features. There are vascular calcifications. There is no acute fracture or dislocation. IMPRESSION: 1. Findings of diffuse idiopathic skeletal hyperostosis of the spine and sacroiliac joints with multilevel degenerative disc disease, greatest and moderate to severe C5-C6. 2. Bilateral hand and wrist polyarticular osteoarthritis, greatest and severe of the 2nd distal interphalangeal joints, right greater than left with features of erosive osteoarthritis. 3. Nonspecific small erosions of the bilateral 3rd metacarpophalangeal joints. Electronically signed by: Cayetano Carrizales MD Tiffanie Weiss MD IMG XR PROCEDURES Final Result * X-ray thoracic spine 2 views (06/04/2023 4:51 PM LOCKMAKER) Anatomical Region Laterality Modality Spine N/A Computed Radiogr aphy 06/04/2023 5:07 PM LOCKMAKER Impressions 06/04/2023 5:07 PM LOCKMAKER 1. ??Findings of diffuse idiopathic skeletal hyperostosis of the spine and sacroiliac joints with multilevel degenerative disc disease, greatest and moderate to severe C5-C6. 2. ??Bilateral hand and wrist polyarticular osteoarthritis, greatest and severe of the 2nd distal interphalangeal joints, right greater than left with features of erosive osteoarthritis. 3. ??Nonspecific small erosions of the bilateral 3rd metacarpophalangeal joints. Electronically signed by: Cayetano Carrizales MD Narrative 06/04/2023 5:07 PM LOCKMAKER EXAMINATION: XR SPINE CERVICAL W FLEXION AND EXTENSION 4 OR 5 VIEWS, XR SPINE LUMBAR 4 OR MORE VIEWS, XR SACROILIAC JOINTS 3 OR MORE VIEWS, XR SPINE THORACIC 2 VIEWS, XR HAND BILATERAL 3 OR MORE VIEWS OF EACH HISTORY: ??Evaluate inflammatory arthritis. FINDINGS: 4 views of the cervical spine, 2 views of the thoracic spine, and 4 views of the lumbar spine are submitted with comparison to CT 04/03/2023. ??There is straightening of the cervical lordosis. Multilevel cervical degenerative disc disease, greatest and moderate to severe C5-C6. ??No abnormal motion of the cervical spine with bending. ??Prevertebral soft tissues are normal. ??No cervical vertebral body height loss. ??Vascular calcification. ??There are midline sternotomy wires. ??Anterior flowing osteophytes of the thoracic spine. ??Multilevel mild to moderate degenerative disc disease of the thoracic spine. ??No thoracic spine vertebral body height loss. ??Multilevel anterior bridging osteophytes of the lumbar spine. ??No lumbar spine vertebral body height loss. ??Multilevel mild to moderate lumbar degenerative disc disease. ??Grade 1 anterolisthesis of L5 on S1 with partially evaluated bilateral pars defects. ??Vascular coils. 3 views of the sacroiliac joints are submitted with comparison to CT 04/03/2023. ??There is partial anterior ankylosis of the bilateral superior sacroiliac joints as seen with diffuse idiopathic skeletal hyperostosis. ??There are no erosions. ??There is a round density projecting over the right sacrum, incompletely evaluated on radiograph. 3 views of each hand are submitted without comparison. ??There is calcification of the left triangular fibrocartilage complex. ??There are erosions of the bilateral 3rd metacarpophalangeal joints. ??There is polyarticular osteoarthritis, greatest and severe of the 2nd distal interphalangeal joint right greater than left with erosive features. ??There are vascular calcifications. ??There is no acute fracture or dislocation. Procedure Note Cayetano Carrizales MD - 06/04/2023 EXAMINATION: XR SPINE CERVICAL W FLEXION AND EXTENSION 4 OR 5 VIEWS, XR SPINE LUMBAR 4 OR MORE VIEWS, XR SACROILIAC JOINTS 3 OR MORE VIEWS, XR SPINE THORACIC 2 VIEWS, XR HAND BILATERAL 3 OR MORE VIEWS OF EACH HISTORY: Evaluate inflammatory arthritis. FINDINGS: 4 views of the cervical spine, 2 views of the thoracic spine, and 4 views of the lumbar spine are submitted with comparison to CT 04/03/2023. There is straightening of the cervical lordosis. Multilevel cervical degenerative disc disease, greatest and moderate to severe C5-C6. No abnormal motion of the cervical spine with bending. Prevertebral soft tissues are normal. No cervical vertebral body height loss. Vascular calcification. There are midline sternotomy wires. Anterior flowing osteophytes of the thoracic spine. Multilevel mild to moderate degenerative disc disease of the thoracic spine. No thoracic spine vertebral body height loss. Multilevel anterior bridging osteophytes of the lumbar spine. No lumbar spine vertebral body height loss. Multilevel mild to moderate lumbar degenerative disc disease. Grade 1 anterolisthesis of L5 on S1 with partially evaluated bilateral pars defects. Vascular coils. 3 views of the sacroiliac joints are submitted with comparison to CT 04/03/2023. There is partial anterior ankylosis of the bilateral superior sacroiliac joints as seen with diffuse idiopathic skeletal hyperostosis. There are no erosions. There is a round density projecting over the right sacrum, incompletely evaluated on radiograph. 3 views of each hand are submitted without comparison. There is calcification of the left triangular fibrocartilage complex. There are erosions of the bilateral 3rd metacarpophalangeal joints. There is polyarticular osteoarthritis, greatest and severe of the 2nd distal interphalangeal joint right greater than left with erosive features. There are vascular calcifications. There is no acute fracture or dislocation. IMPRESSION: 1. Findings of diffuse idiopathic skeletal hyperostosis of the spine and sacroiliac joints with multilevel degenerative disc disease, greatest and moderate to severe C5-C6. 2. Bilateral hand and wrist polyarticular osteoarthritis, greatest and severe of the 2nd distal interphalangeal joints, right greater than left with features of erosive osteoarthritis. 3. Nonspecific small erosions of the bilateral 3rd metacarpophalangeal joints. Electronically signed by: Cayetano Carrizales MD Tiffanie Weiss MD IMG XR PROCEDURES Final Result documented in this encounter Visit Diagnoses Diagnosis Thoracic spine pain Pain in thoracic spine Bilateral hand pain documented in this encounter Care Teams Production Trainer Relationship Specialty Start Date End Date Scott Oneill MD PCP - General Internal Medicine 04/27/20 documented as of this encounter
--- OUTSIDE RECORDS SUMMARY | 2024-04-04 01:41 | XMS_ITS | Encounter Summary ---
Author Organization [facility] Address [address] [place] [address] Phone Care Team Providers Care Fruit And Vegetable Classer Name Role Phone Scott Oneill MD Primary Care Provider [phone] Reason for Visit * Reason Onset Date Comments Labs Only 08/13/2023 Encounter Details Date Type Department Care Team (Late st Contact Info) Description 08/13/2023 Documentation [facility] Pulmonary [address] [facility] [address]th [place] [address] [place] [id number] Marce Bernal MD [address] [facility] [address] [place] [address] Labs Only Social History Tobacco [...] on file Legal Sex Male 1:23 AM A P MANAGER Gender Identity Male 12/24/2023 11:25 AM CDT Sexual Orientation Straight 12/24/2023 11 :25 AM CDT 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
--- OUTSIDE RECORDS SUMMARY | 2024-04-04 01:41 | XMS_ITS | Encounter Summary ---
Author Organization [facility] Address [address] [place] [address] Phone Care Team Providers Care Family And Consumer Sciences Teacher Name Role Phone Scott Oneill MD Primary Care Provider [phone] Encounter Details Date Type Department Care Team (Late st Contact Info) Description 08/05/2023 Telephone [place] [id number] [facility] 8th [place] [address] [place] [phone] Polly Paulino, [place] Social History Tobacco Use [...] on file Legal Sex Male 1:23 AM RADIO MECHANIC APPRENTICE Gender Identity Male 12/24/2023 11:25 AM CDT Sexual Orientation Straight 12/24/2023 11 :25 AM CDT 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 Start Date Job End Date [employer], 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 Clinic note from 07/31 faxed to F:[phone]. Fax confirmation received. documented in this encounter Plan of Treatment Not on file documented as of this encounter Visit Diagnoses Not on filedocumented in this encounter Care Teams Family And Consumer Sciences Teacher Relationship Specialty Start Date End Date Scott Oneill MD PCP - General Internal Medicine 04/27/20 documented as of this encounter
--- OUTSIDE RECORDS SUMMARY | 2024-04-04 01:41 | XMS_ITS | Encounter Summary ---
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 No answer. LMOR encouraging pt to call back On returned call from pt, pt verbalized understanding and will get CBC at OSH this week. This RN will await lab results and then send in med. Pt will notify this RN when labs are done ----- Message from Gemini Goldberg MD sent at 07/01/2023 4:33 PM CDT ----- Can we please let this patient know that I have discussed with his renal team as well as Dr. Levi rheumatology. I would like to start CellCept (he has been off this for a few years) for his lungdisease. 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 The CellCept would be for the lung disease. He will need an updated CBC - I can see his [facility] labs in care everywhere, but if he has them drawn there he will need to let us know as I will not be alerted. Then plan to initiate CellCept 500 mg BIDwith repeat CBC in two weeks. Thanks, Gemini Greco documented in this encounter Plan of Treatment Not on file documented as of this encounter Visit Diagnoses Not on filedocumented in this encounter Care Teams Matrix Inspector Relationship Specialty Start Date End Date Scott Oneill MD PCP - General Internal Medicine 04/27/20 documented as of this encounter
--- OUTSIDE RECORDS SUMMARY | 2024-04-04 01:41 | XMS_ITS | Encounter Summary ---
Author Organization [facility] Address [address] [place] [address] Phone Care Team Providers Care Cableman Name Role Phone Scott Oneill MD Primary Care Provider [phone] Encounter Details Date Type Department Care Team (Late st Contact Info) Description 07/30/[address] [place] [address] [place] [address] Stacey Downs Social History Tobacco [...] on file Legal Sex Male 1:23 AM GROUP THERAPY COUNSELOR Gender Identity Male 12/24/2023 11:25 AM CDT Sexual Orientation Straight 12/24/2023 11 :25 AM CDT 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 Start Date Job End Date [employer], 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 No answer. LMOR On returned call from pt, pt confirms that he started MMF 500 BID on 07/18 . Pt states that he will get labs drawn on Friday and have results sent to us documented in this encounter Plan of Treatment Not on file documented as of this encounter Visit Diagnoses Not on filedocumented in this encounter Care Teams Cableman Relationship Specialty Start Date End Date Scott Oneill MD PCP - General Internal Medicine 04/27/20 documented as of this encounter
--- OUTSIDE RECORDS SUMMARY | 2024-04-04 01:41 | XMS_ITS | Encounter Summary ---
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 Start Date Job End Date [employer], 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, 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
--- OUTSIDE RECORDS SUMMARY | 2024-04-04 01:41 | XMS_ITS | Encounter Summary ---
Author Organization [facility] Address [address] [place] [address] Phone Care Team Providers Care Microwave Supervisor Name Role Phone Scott Oneill MD Primary Care Provider [phone] Encounter Details Date Type Department Care Team (Late st Contact Info) Description 07/10/[address] [place] [address] [place] [address] Stacey Downs Social History Tobacco [...] on file Legal Sex Male 1:23 AM WASTE HAND Gender Identity Male 12/24/2023 11:25 AM CDT Sexual Orientation Straight 12/24/2023 11 :25 AM CDT 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 Start Date Job End Date [employer], 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
--- OUTSIDE RECORDS SUMMARY | 2024-04-04 01:41 | XMS_ITS | Encounter Summary ---
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 No answer. LMOR and placed order for medication below. ----- Message from Gemini Goldberg MD sent at 07/18/2023 11:45 AM CDT ----- Regarding: RE: did [facility] get labs? Good to start MMF 500 mg BID with repeat CBC in two weeks. Thanks, [facility] documented in this encounter Plan of Treatment Not on file documented as of this encounter Visit Diagnoses Not on filedocumented in this encounter Care Teams Glassware Defect Repairer Relationship Specialty Start Date End Date Scott Oneill MD PCP - General Internal Medicine 04/27/20 documented as of this encounter
--- OUTSIDE RECORDS SUMMARY | 2024-04-04 01:41 | XMS_ITS | Encounter Summary ---
Author Organization [facility] Address [address] [place] [address] Phone Care Team Providers Care Professional Services Manager Name Role Phone Scott Oneill MD Primary Care Provider [phone] Encounter Details Date Type Department Care Team (Late st Contact Info) Description 08/06/2023 Orders Only [facility] Pulmonary [address] [facility] [address]th [place] [address] [place] [address] Marce Bernal MD [address] [place], [place] [id number] High risk medication use (Primary Dx) Social History Tobacco Use Types [...] on file 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 Sex Male 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 Gender Identity Male 12/24/2023 11:25 AM CDT Sexual Orientation Straight 12/24/2023 11 :25 AM CDT 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 Start Date Job End Date [employer], 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
--- OUTSIDE RECORDS SUMMARY | 2024-04-04 01:41 | XMS_ITS | Encounter Summary ---
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 Gender Identity Male 12/24/2023 11:25 AM CDT Sexual Orientation Straight 12/24/2023 11 :25 AM CDT 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 Start Date Job End Date [employer], 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
--- OUTSIDE RECORDS SUMMARY | 2024-04-04 01:41 | XMS_ITS | Encounter Summary ---
Author Organization [facility] Address [address] [place] [address] Phone Care Team Providers Care Instructional Designer Name Role Phone Scott Oneill MD Primary Care Provider [phone] Encounter Details Date Type Department Care Team (Late st Contact Info) Description 06/24/[address] [place] [address] 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 documented in this encounter Plan of Treatment Not on file documented as of this encounter Visit Diagnoses Not on filedocumented in this encounter Care Teams Instructional Designer Relationship Specialty Start Date End Date Scott Oneill MD PCP - General Internal Medicine 04/27/20 documented as of this encounter
--- OUTSIDE RECORDS SUMMARY | 2024-04-04 01:41 | XMS_ITS | Encounter Summary ---
Author Organization [facility] Address [address] [place] [address] Phone Care Team Providers Care Brokerage Coordinator Name Role Phone Scott Oneill MD Primary Care Provider [phone] Encounter Details Date Type Department Care Team (Late st Contact Info) Description 08/05/2023 Documentation [facility] Pulmonary [address] [facility] [address] 8th [place] [address] [place] [address] Polly Paulino, [place] Social History Tobacco Use [...] on file 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 Bernal for review. documented in this encounter Plan of Treatment Not on file documented as of this encounter Visit Diagnoses Not on filedocumented in this encounter Care Teams Brokerage Coordinator Relationship Specialty Start Date End Date Scott Oneill MD PCP - General Internal Medicine 04/27/20 documented as of this encounter
--- OUTSIDE RECORDS SUMMARY | 2024-04-04 01:41 | XMS_ITS | Encounter Summary ---
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 Start Date Job End Date [employer], 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
--- OUTSIDE RECORDS SUMMARY | 2024-04-04 01:41 | XMS_ITS | Encounter Summary ---
Author Organization 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 I will fax when office note is completed. EDMAN/LABORER documented in this encounter Plan of Treatment Not on file documented as of this encounter Visit Diagnoses Not on filedocumented in this encounter Care Teams Jail Manager Relationship Specialty Start Date End Date Scott Oneill MD PCP - General Internal Medicine 04/27/20 documented as of this encounter
--- OUTSIDE RECORDS SUMMARY | 2024-04-04 01:41 | XMS_ITS | Encounter Summary ---
Author Organization [facility] Address [address] [place] [address] Phone Care Team Providers Care Scene And Lighting Design Lecturer Name Role Phone Scott Oneill MD Primary Care Provider [phone] Encounter Details Date Type Department Care Team (Late st Contact Info) Description 07/09/2023 Telephone [place] [address] [facility] 8th [place] [address] [place] [address] Margret Cobb CMA Social History Tobacco Use [...] on file Legal Sex Male 1:23 AM INSEAM TRIMMER Gender Identity Male 12/24/2023 11:25 AM CDT Sexual Orientation Straight 12/24/2023 11 :25 AM CDT 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 This MA received labs from OSH via fax, passed results to [place] Ibarra. documented in this encounter Plan of Treatment Not on file documented as of this encounter Visit Diagnoses Not on filedocumented in this encounter Care Teams Scene And Lighting Design Lecturer Relationship Specialty Start Date End Date Scott Oneill MD PCP - General Internal Medicine 04/27/20 documented as of this encounter
--- OUTSIDE RECORDS SUMMARY | 2024-04-04 01:41 | XMS_ITS | Encounter Summary ---
Author Organization [facility] Address [address] [place] [address] Phone Care Team Providers Care Cab Supervisor Name Role Phone Scott Oneill MD Primary Care Provider [phone] Reason for Referral * Procedure (Routine) - Closed Specialty Diagnoses / Procedures Referred By Rocky blancas Referred To Contact Diagnoses Microscopic polyangiitis (HCC) Interstitial lung disease (CMS/HCC) (HCC) Procedures Pulmonary Function Test -[facility]FT [facility]- CAM-8D; Spirometry, Oxygen Assessment Titration Gemini Goldberg MD [address] [place] [address] Phone: tel: fax: Referral ID Status Reason Start Date Expiration Date Visits Re quested Visits Authorized [id number] Closed 05/22/2023 06/20/2024 1 1 Reason for Visit * Procedure (Routine) - Closed Specialty Diagnoses / Procedures Referred By Rocky blancas Referred To Contact Diagnoses Microscopic polyangiitis (HCC) Interstitial lung disease (CMS/HCC) (HCC) Procedures Pulmonary Function Test -[facility]- CAM-8D; Spirometry, Oxygen Assessment Titration Gemini Goldberg MD [address] [place] [address] Phone: tel: fax: Referral ID Status Reason Start Date Expiration Date Visits Re quested Visits Authorized [id number] Closed 05/22/2023 06/20/2024 1 1 Encounter Details Date Type Department Care Team (Latest Contact Info) Description 08/01/2023 12:16 PM CDT - 08/01/2023 11:59 PM CDT Hospital Encounter [facility] [address] [facility] [address] [place] [address] Microscopic polyangiitis (HCC); Interstitial lung disease (CMS/HCC) (HCC) Discharge Disposition: Discharge to home or [...] on file Legal Sex Male 1:23 AM ADOPTION SERVICES MANAGER Gender Identity Male 12/24/2023 11:25 AM CDT Sexual Orientation Straight 12/24/2023 11 :25 AM CDT 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 Start Date Job End Date [employer], 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, 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 Not on file Not on file [...] 6 (six) hours as needed for pain mycophenolate mofetil (CELLCEPT) 500 mg tablet Take 1 tablet (500 mg total) by mouth 2 (two) times a day 60 tablet 07/18/[address] (PROTONIX) 40 mg EC [...] Diagnosis Comments PULMONARY FUNCTION TEST (PFT) Routine 08/01/2023 12:45 PM CDT Microscopic polyangiitis (HCC) Interstitial lung disease (CMS/HCC) (HCC) documented in this encounter Results * Pulmonary Function Test - (08/01/2023 12:45 PM CDT) FVC PRE 2.54 L [facility] FVC %PRE PRED 71 % [facility] FEV1 PRE 2.23 L [facility] FEV1 %PRE PRED 81 % [facility] FEV1/FVC PRE 87.7 % [facility] Anatomical Region Laterality Modality PFT 08/01/2023 12:2 4 PM CDT Impressions 08/04/2023 1:47 PM CDT There is a mild restrictive ventilatory defect. However measurement of lung volumes is suggested to confirm this if clinically indicated. Compared with study dated 05/22/23 , there has been no significant interval change. The attending pulmonary physician certifies a physician presence in the [facility] during the administration of aerosolized bronchodilator. The attending pulmonary physician certifies that he/she has reviewed and interpreted the graphic and numerical data of this pulmonary function study and agrees with the written final report. The lower limit of normal for PO2 and %HbO2 is age dependent. However, the [facility] defines hypoxemia as a PO2 <55 or a %HbO2 <89. Narrative 08/04/2023 1:47 PM CDT Table formatting from the original result was not included. [facility] Division of Pulmonary & Critical Care Medicine [address] [place] [address]; [place] [address]; [place], [place] [address]; [phone] Pulmonary Function Laboratory Pulmonary Stress Test Simple/Oxygen Assessment Patient: Britton Nielsen Date: 08/01/2023 : 1955 Ht: 65.0 IN Wt: 230 LBS Time (min) Distance (ft)/ [place] O2 L/M SpO2 HR Brenton* BP FEV1 % Pred Rest: ??RA 100 61 0 129/55 2.23 81 % ? Walk/Bike: 1 ??RA 98 65 0 ? 2 ??RA 95 76 0 ? 3 ??RA 94 79 0 ? 4 ??RA 94 80 0 ? 5 ??RA 95 79 0 ? 6 min 0 sec ??RA 94 77 0 ? Recovery: 1 ??RA 97 74 3 / 2.18 79% 3 ??RA 99 64 0 161/63 ?*Brenton rate of perceived exertion (1-10 dyspnea scale) ??Abdulaziz, CHEST 2003; 123:1408 Walk Test Summary: Six Minute Walk Distance: 1065 ft Six-minute Walk Work [distance (m) x body wt (kg)]: 09788 kg.m (normal >60,000kg.m) Oxygen required to maintain SpO2 greater than 90% during six minutes of walkin L/M Comments: STOPS 0 ATS Interpretation: Breathing room air, SpO2 is normal at rest and during exercise sufficient to increase pulse from 61 ??to 79 b/min, SpO2 falls but remains normoxemic . On this basis, SpO2 is adequate at rest breathing room air and while walking breathing room air. This level of exercise is associated with no significant change of FEV1. ?? Austin Veloz M.D. By signing this report, the attending pulmonary physician certifies that he/she has personally reviewed and interpreted the graphic and numerical data associated with this pulmonary function study and has reviewed and /or edited a preliminary draft report and agrees with the written final report. PFT performed at:->[facility] Adult PFT Lab- [facility] Procedure:->Spirometry Procedure:->Oxygen Assessment Titration Pulmonary Function Test Interpretation SPIROMETRY: The FEV-I and FVC are reduced in a pattern suggestive of a restrictive abnormality. FLOW VOLUME LOOPS: The inspiratory loop is appropriate for the expiratory flow abnormality. Gemini Goldberg MD PFT ORDERABLES Final Res ult documented in this encounter Visit Diagnoses Diagnosis Microscopic polyangiitis (HCC) Polyarteritis nodosa Interstitial lung disease (CMS/HCC) (HCC) Postinflammatory pulmonary fibrosis documented in this encounter Care Teams Cab Supervisor Relationship Specialty Start Date End Date Scott Oneill MD PCP - General Internal Medicine 04/27/20 documented as of this encounter
--- OUTSIDE RECORDS SUMMARY | 2024-04-04 01:41 | XMS_ITS | Encounter Summary ---
Author Organization [facility] Address [address] [place] [address] Phone Care Team Providers Care College Professor Name Role Phone Scott Oneill MD Primary Care Provider [phone] Encounter Details Date Type Department Care Team (Late st Contact Info) Description 06/04/2023 Orders Only [facility] Rheumatology [address] [facility] [address] 5th [place] [address] [place] [address] Tiffanie Weiss MD [address] [place] [address] Social History Tobacco Use Types [...] on file Legal Sex Male 1:23 AM MAINSPRING BARREL ASSEMBLY CLEANER Gender Identity Male 12/24/2023 11:25 AM CDT Sexual Orientation Straight 12/24/2023 11 :25 AM CDT 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 Start Date Job End Date [employer], 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 HISTOTRAC 06/04/2023 3:38 PM MAINSPRING BARREL ASSEMBLY CLEANER 06/06/2023 1:45 PM MAINSPRING BARREL ASSEMBLY CLEANER Narrative HISTOTRAC - 06/06/2023 1:45 PM MAINSPRING BARREL ASSEMBLY CLEANER HLA-B typing is performed using the reverse sequence specific oligonucleotide (r-SSO) method, which is based on an FDA approved IVD kit and validated by the [facility] HLA laboratory. Interpretive comments: HLA-B*27 positivity confers increased risk for ankylosing spondylitis or nonradiographic axial spondyloarthritis. The absence of HLA-B*27 may help rule out these diagnoses Expected: ??HLA-B*27 has been found in 74% to 89% of patients with either nonradiographic axial spondyloarthritis or ankylosing spondylitis. The absolute risk of spondyloarthritis in persons with HLA-B*27 is 2% to 10%. (N Engl J Med 2016;374:2563-74) Testing performed at the [facility] HLA Laboratory, [facility], 5th floor, [place], [address]. [facility] # [id number]. Ronda Kincaid M.D., Associate HLA Plasma Processing Technician Ollie Sotomayor M.D., Ph.D., HLA Plasma Processing Technician Skye Landaverde, Ph.D., Sheet Rock Applicator, [facility] Clinical Laboratories Current methodology and interpretive comments were last revised on 10/21/2016 us Tiffanie Weiss MD LAB BLOOD ORDERABLES Final Resul t HISTOTRAC documented in this encounter Visit Diagnoses Not on filedocumented in this encounter Care Teams College Professor Relationship Specialty Start Date End Date Scott Oneill MD PCP - General Internal Medicine 04/27/20 documented as of this encounter
--- OUTSIDE RECORDS SUMMARY | 2024-04-04 01:41 | XMS_ITS | Encounter Summary ---
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 LVM making patient aware. documented in this encounter Plan of Treatment Not on file documented as of this encounter Visit Diagnoses Not on filedocumented in this encounter Care Teams Powdered Sugar Supervisor Relationship Specialty Start Date End Date Scott Oneill MD PCP - General Internal Medicine 04/27/20 documented as of this encounter
--- OUTSIDE RECORDS SUMMARY | 2024-04-04 01:41 | XMS_ITS | Encounter Summary ---
Author Organization 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
--- OUTSIDE RECORDS SUMMARY | 2024-04-04 01:41 | XMS_ITS | Encounter Summary ---
Author Organization [facility] Address [address] [place] [address] Phone Care Team Providers Care Enrolled Agent Name Role Phone Scott Oneill MD Primary Care Provider [phone] Encounter Details Date Type Department Care Team (Late st Contact Info) Description 08/06/2023 Telephone [id number] [facility] 8th [place] [address] [place] [id number] Margret Cobb CMA Social History Tobacco Use [...] on file Legal Sex Male 1:23 AM PORTER MARINA Gender Identity Male 12/24/2023 11:25 AM CDT Sexual Orientation Straight 12/24/2023 11 :25 AM CDT 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 Start Date Job End Date [employer], 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 Can repeat in 2 month(s). Patient reports understanding. documented in this encounter Plan of Treatment Not on file documented as of this encounter Visit Diagnoses Not on filedocumented in this encounter Care Teams Enrolled Agent Relationship Specialty Start Date End Date Scott Oneill MD PCP - General Internal Medicine 04/27/20 documented as of this encounter
--- OUTSIDE RECORDS SUMMARY | 2024-04-04 01:41 | XMS_ITS | Encounter Summary ---
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 Gender Identity Male 12/24/2023 11:25 AM CDT Sexual Orientation Straight 12/24/2023 11 :25 AM CDT 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 Start Date Job End Date [employer], 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
--- OUTSIDE RECORDS SUMMARY | 2024-04-04 01:41 | XMS_ITS | Encounter Summary ---
Author Organization [facility] Address [address] [place] [address] Phone Care Team Providers Care Continuity Person Name Role Phone Scott Oneill MD Primary Care Provider [phone] Encounter Details Date Type Department Care Team (Late st Contact Info) Description 07/08/2023 Orders Only [facility] Pulmonary [address] [facility] 8th [place] [address] [place] [address] Gemini Goldberg MD [address] [place], [place] [id number] High risk medication use (Primary Dx) Social [...] on file 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 Gender Identity Male 12/24/2023 11:25 AM CDT Sexual Orientation Straight 12/24/2023 11 :25 AM CDT 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 Start Date Job End Date [employer], 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, 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
--- OUTSIDE RECORDS SUMMARY | 2024-04-04 01:41 | XMS_ITS | Encounter Summary ---
Author Organization [facility] Address [address] [place] [address] Phone Care Team Providers Care Training And Development Head Name Role Phone Scott Oneill MD Primary Care Provider [phone] Reason for Visit * Reason Onset Date Comments Labs Only 08/06/2023 Encounter Details Date Type Department Care Team (Late st Contact Info) Description 08/06/2023 Documentation [facility] Pulmonary [address] [facility] Advanced [facility] 8th [place] [address] [place] [address] Marce Bernal MD [address] 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 Will increase mycophenolate to 1000 mg in the morning and 500 mg in the evening. Will repeat labs in 2 weeks. Given impaired creatinine clearance will not go above a 1000 mg b.i.d. on mycophenolate dosing. documented in this encounter Plan of Treatment Not on file documented as of this encounter Visit Diagnoses Not on filedocumented in this encounter Care Teams Training And Development Head Relationship Specialty Start Date End Date Scott Oneill MD PCP - General Internal Medicine 04/27/20 documented as of this encounter
--- OUTSIDE RECORDS SUMMARY | 2024-04-04 01:42 | XMS_ITS | Encounter Summary ---
Author Organization [facility] Address [address] [place] [address] Phone Care Team Providers Care Pumpman Name Role Phone Scott Oneill MD Primary Care Provider [phone] Reason for Visit * Auth/Cert Specialty Diagnoses / Procedures Referred By Rocky t Referred To Contact Referral ID Status Reason Start Date Expiration Date Visits Re quested Visits Authorized [id number] 1 1 Encounter Details Date Type Department Care Team (Late st Contact Info) Description 09/11/2020 10:30 AM CDT Home Care Visit [facility] [address] [address] [address] [place] [address] Polly Saldaña RN SN HOME VISIT Social History Tobacco Use Types Packs/Day Years [...] on file Legal Sex Male 1:23 AM BAR STEWARD Gender Identity Male 12/24/2023 11:25 AM CDT Sexual Orientation Straight 12/24/2023 11 :25 AM CDT documented as of this encounter Last Filed Vital Signs Vital Sign Reading Time Taken Comments Blood Pressure 138/72 09/11/2020 8:23 AM CDT Pulse 64 09/11/2020 8:23 AM CDT Temperature 36.6 ??C (97.9 ??F) 09/11/2020 8:23 AM CD T Respiratory Rate 18 09/11/2020 8:23 AM CDT Oxygen Saturation 99% 09/11/2020 8:23 AM CDT Inhaled Oxygen Concentration - - Weight 102.5 kg (226 lb) 09/11/2020 8:23 AM CDT Height - - Body Mass Index 37.61 07/17/2020 8:05 PM CDT documented in this encounter Plan of Treatment Not on file documented as of this encounter Visit Diagnoses Not on filedocumented in this encounter Home Health Visit - Care Plan Visit Details Visit Type -SN Home Visit Discipline -Intermediate Problems Problem Description Start Date Status Goals Interve ntions Homebound Status Disciplines: Intermediate unable to leave the home without the assistance of another person. Decreased strength, endurance and balance. Elevated fall risk; unable to negotiate steps and/or uneven surfaces independently.Jessica hensley's homebound status 06/17/2020 Active 1 goal linked to scheduled/documen yun intervention 1 goal intervention scheduled/document ed in this visit Monitor patient's vital signs every home health visit Disciplines: Intermediate Monitor patient's vital signs every home health visit. 06/17/2020 Active 1 goal linked to scheduled/documen yun intervention 1 problem intervention scheduled/document ed in this visit 1 goal intervention scheduled/document ed in this visit Wound Care Disciplines: Intermediate Wound care needed: wound #4, Chest. 06/17/2020 Active - 1 problem intervention scheduled/document ed in this visit Wound Risk of Infection Disciplines: Intermediate Risk of infections related to wounds 06/17/2020 Active 1 goal linked to scheduled/documen yun intervention 2 goal interventions scheduled/document ed in this visit Goals Goal Associated Problem Outcome Goal Met? Visit Notes Patient recieves care at the most appropriate care setting Description: Patient receives care at the most appropriate care setting. Homebound Status No Measure vital signs during every home health visit during episode of care Description: Home crew manager to measure vital signs during every home health visit during episode of care. Monitor patient's vital signs every home health visit No Knowledgeable of infection Description: : Patient will remain free of infection and able to recognizes of signs of infection by 06/20/20. Wound Risk of Infection No Interventions Intervention Associated Problem/Goal Status Variance Visit Notes Homebound Status Description: unable to leave the home without the assistance of another person. Decreased strength, endurance and balance. Elevated fall risk; unable to negotiate steps and/or uneven surfaces independently. Problem:Homebound Status Goal:Patient recieves care at the most appropriate care setting Completed unable to leave the home without the assistance of another person. Decreased strength, endurance and balance. Elevated fall risk; unable to negotiate steps and/or uneven surfaces independently. Monitor Vital Signs Description: Monitor blood pressure, pulse, oxygen saturation, respirations Problem:Monitor patient's vital signs every home health visit Goal:Measure vital signs during every home health visit during episode of care Completed VS WNL Monitor weight Description: patient to weigh daily and record. Problem:Monitor patient's vital signs every home health visit Completed weighs daily Perform wound care as instructed by physician Description: Wound #4 chest Patient/Caregiver/SN to change dressing daily. Remove dressing. Cleanse with gentle soap. Patient may shower and cleanse with soap and water then pat dry. Apply iodosorb gel then cover with Allevyn. CLIFTON Ridley RN/Dana Gibson NP Problem:Wound Care Completed wound care performed Disposal of Dressing Description: Dispose of soiled dressing by place in bag then place in patient's trashcan. Problem:Wound Risk of Infection Goal:Knowledgeable of infection Completed soiled dressing disposed of per guidelines Instruct Hand Washing Description: Instruct patient/caregiver on hand wash technique Problem:Wound Risk of Infection Goal:Knowledgeable of infection Completed demonstrates knowledge documented in this encounter Home Health Visit - Actions and Narratives Narratives SN arrived to home, greeted by patient, identified by name and . SN assessment performed, see visit note. Wound assessment and care performed, see wound sheet. Patient/caregiver verbalized understanding of wound care. See careplan for SN instructions and interventions documented in this encounter Care Teams Pumpman Relationship Specialty Start Date End Date Scott Oneill MD PCP - General Internal Medicine 04/27/20 documented as of this encounter
--- OUTSIDE RECORDS SUMMARY | 2024-04-04 01:42 | XMS_ITS | Encounter Summary ---
Author Organization [facility] Address [address] [place] [address] Phone Care Team Providers Care Emergency Preparedness Coordinator Name Role Phone Scott Oneill MD Primary Care Provider [phone] Reason for Visit * Auth/Cert Specialty Diagnoses / Procedures Referred By Rocky t Referred To Contact Referral ID Status Reason Start Date Expiration Date Visits Re quested Visits Authorized [id number] 1 1 Encounter Details Date Type Department Care Team (Late st Contact Info) Description 09/25/2020 8:30 AM CDT Home Care Visit [facility] [address] [address] [address] [place] [address] Polly Saldaña RN SN HOME VISIT Social [...] on file 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 Gender Identity Male 12/24/2023 11:25 AM CDT Sexual Orientation Straight 12/24/2023 11 :25 AM CDT documented as of this encounter Last Filed Vital Signs Vital Sign Reading Time Taken Comments Blood Pressure 154/62 09/25/2020 8:51 AM CDT Pulse 60 09/25/2020 8:51 AM CDT Temperature 36.3 ??C (97.4 ??F) 09/25/2020 8:51 AM CD T Respiratory Rate 18 09/25/2020 8:51 AM CDT Oxygen Saturation 98% 09/25/2020 8:51 AM CDT Inhaled Oxygen Concentration - - Weight 99.3 kg (219 lb) 09/25/2020 8:51 AM CDT Height - - Body Mass Index 36.44 07/17/2020 8:05 PM CDT documented in this encounter Plan of Treatment Not on file documented as of this encounter Visit Diagnoses Not on filedocumented in this encounter Home Health Visit - Care Plan Visit Details Visit Type -SN Home Visit Discipline -Half-Way Problems Problem Description Start Date Status Goals Interve ntions Homebound Status Disciplines: Half-Way unable to leave the home without the assistance of another person. Decreased strength, endurance and balance. Elevated fall risk; unable to negotiate steps and/or uneven surfaces independently.Jessica hensley's homebound status 06/17/2020 Active 1 goal linked to scheduled/documen yun intervention 1 goal intervention scheduled/document ed in this visit Monitor patient's vital signs every home health visit Disciplines: Half-Way Monitor patient's vital signs every home health visit. 06/17/2020 Active 1 goal linked to scheduled/documen yun intervention 1 problem intervention scheduled/document ed in this visit 1 goal intervention scheduled/document ed in this visit Standardized Guidelines Disciplines: Half-Way Standardized Guidelines 06/17/2020 Active 1 goal linked to scheduled/documen yun intervention 1 goal intervention scheduled/document ed in this visit Wound Care Disciplines: Half-Way Wound care needed: wound #4, Chest. 06/17/2020 Active - 1 problem intervention scheduled/document ed in this visit Wound Risk of Infection Disciplines: Half-Way Risk of infections related to wounds 06/17/2020 [...] visit during episode of care Description: Home spool worker to measure vital signs during every home health visit during episode of care. Monitor patient's vital signs every home health visit No Understanding of when to notify MD in absence of home care staff Description: Understanding of when to notify MD in absence of home care staff Standardized Guidelines No Knowledgeable of infection Description: : Patient [...] vital signs every home health visit Completed weight recorded Home Care Staff Absence Description: In absence of Home Care staff the patient/caregiver should call HHC and/or MD office. Problem:Standardized Guidelines Goal:Understanding of when to notify MD in absence of home care staff Completed Patient verbalized understanding Perform wound care as instructed by physician [...] Risk of Infection Goal:Knowledgeable of infection Completed dressing disposed of per guidelines Instruct on the signs and symptoms of infection Description: Assess wound with each visit for s/sx of infection Problem:Wound Risk of Infection Goal:Knowledgeable of infection Completed erbalikzed understanding documented in this encounter Home Health Visit - Actions and Narratives Narratives SN arrived to home, greeted by patient, identified by name abd . SN assessment performed, see visit note. Wound assessment performed, see wound note, See care plan for SN instructions and interventions. documented in this encounter Care Teams Emergency Preparedness Coordinator Relationship Specialty Start Date End Date Scott Oneill MD PCP - General Internal Medicine 04/27/20 documented as of this encounter
--- OUTSIDE RECORDS SUMMARY | 2024-04-04 01:42 | XMS_ITS | Encounter Summary ---
Author Organization [facility] Address [address] [place] [address] Phone Care Team Providers Care Director Of Field Coordination Name Role Phone Scott Oneill MD Primary Care Provider [phone] Reason for Visit * Auth/Cert Specialty Diagnoses / Procedures Referred By Rocky t Referred To Contact Referral ID Status Reason Start Date Expiration Date Visits Re quested Visits Authorized [id number] 1 1 Encounter Details Date Type Department Care Team (Late st Contact Info) Description 09/04/2020 9:00 AM CDT Home Care Visit [facility] [address] [address] [address] [place] [address] Polly Saldaña RN SN HOME VISIT Social [...] on file 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 Gender Identity Male 12/24/2023 11:25 AM CDT Sexual Orientation Straight 12/24/2023 11 :25 AM CDT documented as of this encounter Last Filed Vital Signs Vital Sign Reading Time Taken Comments Blood Pressure 130/78 09/04/2020 10:21 AM CDT Pulse 66 09/04/2020 10:21 AM CDT Temperature 36.5 ??C (97.7 ??F) 09/04/2020 10:21 AM C DT Respiratory Rate 18 09/04/2020 10:21 AM CDT Oxygen Saturation 98% 09/04/2020 10:21 AM CDT Inhaled Oxygen Concentration - - Weight 102.5 kg (226 lb) 09/04/2020 10:21 AM CDT Height - - Body Mass Index 37.61 07/17/2020 8:05 PM CDT documented in this encounter Plan of Treatment Not on file documented as of this encounter Visit Diagnoses Not on filedocumented in this encounter Home Health Visit - Care Plan Visit Details Visit Type -SN Home Visit Discipline -Shelter Problems Problem Description Start Date Status Goals Interve ntions Homebound Status Disciplines: Shelter unable to leave the home without the assistance of another person. Decreased strength, endurance and balance. Elevated fall risk; unable to negotiate steps and/or uneven surfaces independently.Jessica hensley's homebound status 06/17/2020 Active 1 goal linked to scheduled/documen yun intervention 1 goal intervention scheduled/document ed in this visit Monitor patient's vital signs every home health visit Disciplines: Shelter Monitor patient's vital signs every home health visit. 06/17/2020 Active 1 goal linked to scheduled/documen yun intervention 1 problem intervention scheduled/document ed in this visit 1 goal intervention scheduled/document ed in this visit Fall Precautions/S afety Concerns Disciplines: Shelter Alteration in safety 06/17/2020 Active 1 goal linked to scheduled/documen yun intervention 2 goal interventions scheduled/document ed in this visit Wound Care Disciplines: Shelter Wound care needed: wound #4, Chest. 06/17/2020 Active - 1 problem intervention scheduled/document ed in this visit Wound Risk of Infection Disciplines: Shelter Risk of infections related to wounds 06/17/2020 Active 1 goal linked to scheduled/documen yun intervention 1 goal intervention scheduled/document ed in this visit Goals Goal Associated Problem Outcome Goal Met? Visit Notes Patient recieves care at the most appropriate care setting Description: Patient receives care at the most appropriate care setting. Homebound Status No Measure vital signs during every home health visit during episode of care Description: Home civil rights investigator to measure vital signs during every home health visit during episode of care. Monitor patient's vital signs every home health visit No Demonstrate use of safety precautions Description: Demonstrate use of safety precautions Fall Precautions/Safety Concerns No Knowledgeable of infection Description: : Patient [...] signs every home health visit Completed weight monitored High Fall Risk Precautions Description: Instruct patient/caregiver in methods to prevent falls Problem:Fall Precautions/Safety Concerns Goal:Demonstrate use of safety precautions Completed instructed on fall prevention verbalized understanding Chromo Fall Precautions Description: Assess patient safety Problem:Fall Precautions/Safety Concerns Goal:Demonstrate use of safety precautions Completed nol safety concerns Perform wound care as instructed by physician Description: wound #4 chest. pt/cg/sn cleanse wound with wound cleanser. pt may shower. pat dry. apply fibrocol to wound bed. cover with allevyn. to be changed every 2-3 days. alex rivera's office/dalia cha rn Problem:Wound Care Completed wound care performed Disposal of Dressing Description: Dispose of soiled dressing by place in bag then place in patient's trashcan. Problem:Wound Risk of Infection Goal:Knowledgeable of infection Completed dressing disposed of per guidelines documented in this encounter Care Teams Director Of Field Coordination Relationship Specialty Start Date End Date Scott Oneill MD PCP - General Internal Medicine 04/27/20 documented as of this encounter
--- OUTSIDE RECORDS SUMMARY | 2024-04-04 01:42 | XMS_ITS | Encounter Summary ---
Author Organization [facility] Address [address] [place] [address] Phone Care Team Providers Care Gravity Prospecting Supervisor Name Role Phone Scott Oneill MD Primary Care Provider [phone] Encounter Details Date Type Department Care Team (Late st Contact Info) Description 05/13/2023 Orders Only [facility] Pulmonary [address] [facility] Advanced Medicine 8th [place] [address] [place] [address] Marce Bernal MD [address] [facility] [address] [place] [address] Microscopic polyangiitis (HCC) (Primary Dx) Social History Tobacco Use [...] on file 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 ??No pneumothorax or pleural effusions. ??Unchanged calcification along the aortic arch. New basilar and peripheral predominant interstitial opacities could represent mild pulmonary edema versus early fibrosis. Mild, stable cardiomegaly. Dictated by: Geraldine Ovalle MD The radiology attending physician has personally reviewed this study, and had reviewed and/or edited this written report and agrees with it. Electronically signed by: Suresh Benitez M.D. Narrative 05/22/2023 12:02 PM LOOM SETTER FOURDRINIER EXAMINATION: 2 view chest radiograph Procedure Note Suresh Benitez MD - 05/22/2023 EXAMINATION: 2 view chest radiograph IMPRESSION: Comparison to chest radiograph from 07/17/2020 Median sternotomy wires are aligned and intact. No pneumothorax or pleural effusions. Unchanged calcification along the aortic arch. New basilar and peripheral predominant interstitial opacities could represent mild pulmonary edema versus early fibrosis. Mild, stable cardiomegaly. Dictated by: Geraldine Ovalle MD The radiology attending physician has personally reviewed this study, and had reviewed and/or edited this written report and agrees with it. Electronically signed by: Suresh Benitez M.D. 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
--- OUTSIDE RECORDS SUMMARY | 2024-04-04 01:42 | XMS_ITS | Encounter Summary ---
Author Organization [facility] Healthcare Address [address] [place] [address] Care Team Providers Care Parking Cashier Name Role Phone Scott Oneill MD Primary Care Provider [phone] Encounter Details Date Type Department Care Team (Latest Contact Info) Description 05/22/2023 9:42 PM JAVA WEB ARCHITECT - 05/22/2023 11:59 PM JAVA WEB ARCHITECT Hospital Encounter [facility] [address] [place] [id number] Discharge Disposition: Discharge to home or self [...] on file Legal Sex Male 1:23 AM JAVA WEB ARCHITECT Gender Identity Male 12/24/2023 11:25 AM CDT Sexual Orientation Straight 12/24/2023 11 :25 AM CDT documented as of this encounter Medications at [...] (40 mg total) by mouth daily 03/27/2020 labetaloL (NORMODYNE,TRANDA TE) 200 mg tablet Take [...] mg total) by mouth daily 06/15/2020 4 irbesartan (AVAPRO) 150 mg tablet Take 1 tablet (150 mg total) by mouth nightly [address] (PROTONIX) 40 mg EC [...] Comments XR TRANSFER OF OUTSIDE FILMS Routine 05/22/2023 9:42 PM JAVA WEB ARCHITECT documented in this encounter Results * XR Outside Reference (05/22/2023 9:42 PM JAVA WEB ARCHITECT) Impressions [facility] - 05/22/2023 9:42 PM JAVA WEB ARCHITECT These images are for Reference purposes only and have not been reviewed by [facility] Radiology. ??There will be no report generated by a [facility] Radiologist. Narrative [facility] - 05/22/2023 9:42 PM JAVA WEB ARCHITECT EXAMINATION: ??Images For Reference Purposes Only us Marce Bernal MD IMG XR PROCEDURES Final Resu lt [facility] documented in this encounter Visit Diagnoses Not on filedocumented in this encounter Care Teams Parking Cashier Relationship Specialty Start Date End Date Scott Oneill MD PCP - General Internal Medicine 04/27/20 documented as of this encounter
--- OUTSIDE RECORDS SUMMARY | 2024-04-04 01:42 | XMS_ITS | Encounter Summary ---
Author Organization [facility] Address [address] [place] [address] Phone Care Team Providers Care Benefits Specialist Recruiter Name Role Phone Scott Oneill MD Primary Care Provider [phone] Reason for Visit * Auth/Cert Specialty Diagnoses / Procedures Referred By Rocky t Referred To Contact Referral ID Status Reason Start Date Expiration Date Visits Re quested Visits Authorized [id number] 1 1 Encounter Details Date Type Department Care Team (Late st Contact Info) Description 08/30/2020 8:30 AM CDT Home Care Visit [facility] [address] [address] [address] [place] [address] Polly Saldaña RN SN HOME VISIT Social [...] on file 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 Gender Identity Male 12/24/2023 11:25 AM CDT Sexual Orientation Straight 12/24/2023 11 :25 AM CDT documented as of this encounter Last Filed Vital Signs Vital Sign Reading Time Taken Comments Blood Pressure 132/72 08/30/2020 8:43 AM CDT Pulse 62 08/30/2020 8:43 AM CDT Temperature 36.4 ??C (97.5 ??F) 08/30/2020 8:43 AM CD T Respiratory Rate - - Oxygen Saturation 99% 08/30/2020 8:43 AM CDT Inhaled Oxygen Concentration - - Weight 99.8 kg (220 lb) 08/30/2020 8:43 AM CDT Height - - Body Mass Index 36.61 07/17/2020 8:05 PM CDT documented in this encounter Plan of Treatment Not on file documented as of this encounter Visit Diagnoses Not on filedocumented in this encounter Home Health Visit - Care Plan Visit Details Visit Type -SN Home Visit Discipline -Fci Problems Problem Description Start Date Status Goals Interve ntions Homebound Status Disciplines: Fci unable to leave the home without the assistance of another person. Decreased strength, endurance and balance. Elevated fall risk; unable to negotiate steps and/or uneven surfaces independently.Jessica hensley's homebound status 06/17/2020 Active 1 goal linked to scheduled/documen yun intervention 1 goal intervention scheduled/document ed in this visit Monitor patient's vital signs every home health visit Disciplines: Fci Monitor patient's vital signs every home health visit. 06/17/2020 Active 1 goal linked to scheduled/documen yun intervention 1 problem intervention scheduled/document ed in this visit 1 goal intervention scheduled/document ed in this visit Fall Precautions/S afety Concerns Disciplines: Fci Alteration in safety 06/17/2020 Active 1 goal linked to scheduled/documen yun intervention 1 goal intervention scheduled/document ed in this visit Wound Care Disciplines: Fci Wound care needed: wound #4, Chest. 06/17/2020 Active - 1 problem intervention scheduled/document ed in this visit Wound Risk of Infection Disciplines: Fci Risk of infections related to wounds 06/17/2020 [...] visit during episode of care Description: Home mixer tender to measure vital signs during every home [...] vital signs every home health visit Completed see VS [place] Fall Precautions Description: Assess patient safety Problem:Fall Precautions/Safety Concerns Goal:Demonstrate use of safety precautions Completed no safety concerns at this time Perform wound care as instructed by physician [...] Risk of Infection Goal:Knowledgeable of infection Completed documented in this encounter Home Health Visit - Actions and Narratives Narratives SN arrived to home, greeted by patient. Patient identified by name and . SN assessment performed, see visit note. wound assessment performed, see wound addendum. See care plan for SN instructions and interventions. 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
--- OUTSIDE RECORDS SUMMARY | 2024-04-04 01:42 | XMS_ITS | Encounter Summary ---
Author Organization [facility] Address [address] [facility] [address] [place] [address] Phone Care Team Providers Care Lpta Name Role Phone Scott Oneill MD Primary Care Provider [phone] Reason for Referral * Procedure (Routine) - Closed Specialty Diagnoses / Procedures Referred By Rocky blancas Referred To Contact Diagnoses Microscopic polyangiitis (HCC) Procedures Pulmonary Function Test -[facility]FT [facility]- [facility]; Oxygen Assessment Titration, Spirometry, Spirometry with Bronchodilator, ABG, Lung Volumes, DLCO; Pleth with Airway Resistance; Room Air ABG; Spirometry Marce Bernal MD [address] [address] Phone: tel: fax: Referral ID Status Reason Start Date Expiration Date Visits Re quested Visits Authorized [id number] Closed 04/17/2023 05/16/2024 1 1 ER SPREADER Reason for Visit * Procedure (Routine) - Closed Specialty Diagnoses / Procedures Referred By Contac t Referred To Contact Diagnoses Microscopic polyangiitis (HCC) Procedures Pulmonary Function Test -[facility]- [facility]; Oxygen Assessment Titration, Spirometry, Spirometry with Bronchodilator, ABG, Lung Volumes, DLCO; Pleth with Airway Resistance; Room Air ABG; Spirometry Marce Bernal MD [address] [facility] [address] [place] [address] Phone: tel: fax: Referral ID Status Reason Start Date Expiration Date Visits Re quested Visits Authorized [id number] Closed 04/17/2023 05/16/2024 1 1 Encounter Details Date Type Department Care Team (Latest Contact Info) Description 05/22/2023 11:47 AM FILLER SPREADER - 05/22/2023 11:59 PM FILLER SPREADER Hospital Encounter [facility] Pulmonary [address] [facility] [address] [place] [address] Microscopic polyangiitis (HCC) Discharge Disposition: Discharge to [...] on file Legal Sex Male 1:23 AM FILLER SPREADER Gender Identity Male 12/24/2023 11:25 AM CDT [...] Diagnosis Comments PULMONARY FUNCTION TEST (PFT) Routine 05/22/2023 12:55 PM FILLER SPREADER Microscopic polyangiitis (HCC) documented in this encounter Results * Pulmonary Function Test - (05/22/2023 12:55 PM FILLER SPREADER) FVC PRE 2.60 L [facility] FVC %PRE PRED 72 % [facility] FVC POST 2.54 L [facility] FVC %POST PRED 70 % [facility] FEV1 PRE 2.35 L [facility] FEV1 %PRE PRED 85 % [facility] FEV1 POST 2.28 L [facility] FEV1 %POST PRED 82 % [facility] FEV1/FVC PRE 90.3 % [facility] FEV1/FVC POST 89.8 % [facility] FRC PL PRE 1.89 L [facility] FRC PL %PRE PRED 60 % [facility] RV PRE 1.43 L [facility] RV %PRE PRED 66 % [facility] TLC PRE 4.19 L [facility] TLC %PRE PRED 69 % [facility] DLCO PRE 9.8 ml/min/mmH g [facility] DLCO %PRE PRED 43 % [facility] FIO2 % 21.00 % [facility] PaO2 96.0 mmHg [facility] PaCO2 31.0 mmHg [facility] pH 7.38 [facility] A-aDO2 POC 15.0 mmHg [facility] METHGB % 0.9 % [facility] COHb POC 0.4 % [facility] HCO3 18.3 mEq/L [facility] Anatomical Region Laterality Modality PFT 05/22/2023 11:5 9 AM FILLER SPREADER Impressions 05/23/2023 11:11 AM FILLER SPREADER There is a mild restrictive ventilatory defect. There is moderate impairment of alveolar gas exchange by DLCO. There is no impairment of O2 gas exchange at rest by ABG. There is mild hyperventilation. The carboxyhemoglobin level is consistent with current nonsmoking status The attending pulmonary physician certifies a physician presence in the [facility] during the administration of aerosolized bronchodilator. The attending pulmonary physician certifies that he/she has reviewed and interpreted the graphic and numerical data of this pulmonary function study and agrees with the written final report. The lower limit of normal for PO2 and %HbO2 is age dependent. However, the [facility] Pulmonary Function Laboratory defines hypoxemia as a PO2 <55 or a %HbO2 <89. Narrative 05/23/2023 11:11 AM FILLER SPREADER Table formatting from the original result was not included. [facility] Division of Pulmonary & Critical Care Medicine [address] [place] [address]; [address]; [place], [place] ??[address]; [phone] Pulmonary Function Laboratory Pulmonary Stress Test Simple/Oxygen Assessment Patient: Britton Nielsen Date: 05/22/2023 : 1955 Ht: 65 IN Wt: 227 LBS Time (min) Distance (ft)/ [place] O2 L/M SpO2 HR Brenton* BP FEV1 % Pred Rest: ??RA 96 64 0 122/36 2.35 85 % ? Walk/Bike: 1 ??RA 93 71 0 ? 2 ??RA 90 78 0 ? 3 ??RA 90 83 0.5 ? 4 ??RA 90 85 1 ? 5 ??RA/2 88/90 83 2 ? 6 min 0 sec ??2 96 78 2 ? Recovery: 1 ??2/RA 94/95 73 2 109/60 2.17 79% 3 ??RA 94 65 0 ?*Brenton rate of perceived exertion (1-10 dyspnea scale) ??Abdulaziz, CHEST 2003; 123:1408 Walk Test Summary: Six Minute Walk Distance: 900 ft Six-minute Walk Work [distance (m) x body wt (kg)]: 94930 kg.m (normal >60,000kg.m) Oxygen required to maintain SpO2 greater than 90% during six minutes of walkin L/M Comments: PATIENT WEARS 2 LPM PRN AT HOME. NO STOPS Interpretation: Breathing room air, SpO2 is normal at rest and during exercise sufficient to increase pulse from 64 to 78b/min, SpO2 falls to hypoxemic levels. On this basis, SpO2 is adequate at rest breathing room air and while walking breathing supplemental O2 at 2 L/min. This level of exercise is associated with no significant change of FEV1. ?? Enedelia Terry M.D. ?? By signing this report, the attending pulmonary physician certifies that he/she has personally reviewed and interpreted the graphic and numerical data associated with this pulmonary function study and has reviewed and /or edited a preliminary draft report and agrees with the written final report. PFT performed at:->[facility] Adult PFT Lab- [facility]-8D Procedure:->Oxygen Assessment Titration Procedure:->Spirometry Procedure:->Spirometry with Bronchodilator Procedure:->ABG Procedure:->Lung Volumes Procedure:->DLCO Lung Volumes via:->Pleth with Airway Resistance ABG:->Room Air ABG DLCO:->Spirometry Pulmonary Function Test Interpretation SPIROMETRY: The FEVI to FVC ratio is normal. The FEV-I and FVC are reduced in a pattern suggestive of a restrictive abnormality. There is no significant improvement after inhaling a single nebulized dose of albuterol. FLOW VOLUME LOOPS: The inspiratory loop is suggestive of submaximal effort. LUNG VOLUMES: TLC measured by plethysmography is decreased. Overweight status may be the cause of the decreased ERV. ?? DIFFUSING CAPACITY: The diffusing capacity corrected for hemoglobin level (DLCO ADJ) is decreased. A decreased diffusing capacity may be due to loss of pulmonary capillary surface area. Causes inctude pulmonary fibrosis (altered LEWIS relationship), pulmonary vascutar disease, emphysema, or interstitial pneumonitis. ARTERIAL BLOOD GASES: There is a mild mixed acid-base disturbance: respiratory alkalosis and metabolic acidosis. The arterial p02 is normal at rest. ??02 saturation measured by oximetry is normal at rest. The COHb level is 0.4 %. Normal is less than 2%. The MetHb level is 0.9 %. Normal is less than 2%. Measured hemoglobin is 12.3 g/dL. Marce Bernal MD PFT ORDERABLES Final Result documented in this encounter Visit Diagnoses Diagnosis Microscopic polyangiitis (HCC) Polyarteritis nodosa documented in this encounter Care Teams Lpta Relationship Specialty Start Date End Date Scott Oneill MD PCP - General Internal Medicine 04/27/20 documented as of this encounter
--- OUTSIDE RECORDS SUMMARY | 2024-04-04 01:42 | XMS_ITS | Encounter Summary ---
Author Organization [facility] Healthcare Address [address] [place] [address] Care Team Providers Care Watershed Program Manager Name Role Phone Scott Oneill MD Primary Care Provider [phone] Encounter Details Date Type Department Care Team (Late st Contact Info) Description 01/27/2023 Telephone [facility] Medical Group Cardiology [address] [place] [address] Kathrin Austin MD [address] [place] [address] Social History Tobacco Use Types Packs/Day Years [...] on file Legal Sex Male 1:23 AM JACKSPOOLER Gender Identity Male 12/24/2023 11:25 AM CDT Sexual Orientation Straight 12/24/2023 11 :25 AM CDT documented as of this encounter Miscellaneous Notes * Telephone Encounter - Lois Hassan RN - 01/27/2023 4:18 PM CDT Spoke with pt and confirmed receipt on message below. * Telephone Encounter - Lois Hassan RN - 01/27/2023 11:09 AM CDT Lm on vm per below, requesting call to confirm receipt of message ----- Message from Kathrin Austin MD sent at 01/27/2023 10:51 AM CDT ----- Regarding: Call patient I saw this patient in my office today. I missed the fact that his blood pressure was slightly elevated here in the office. Please let the patient keep blood pressure log at home and if his blood pressure is running 140 over 90 or above to call me. documented in this encounter Plan of Treatment Not on file documented as of this encounter Visit Diagnoses Not on filedocumented in this encounter Care Teams Watershed Program Manager Relationship Specialty Start Date End Date Scott Oneill MD PCP - General Internal Medicine 04/27/20 documented as of this encounter
--- OUTSIDE RECORDS SUMMARY | 2024-04-04 01:42 | XMS_ITS | Encounter Summary ---
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 Pt more than 6 months post CABG, no pre treatment needed. * Telephone Encounter - Ashlee Mcclelland - 01/11/2021 12:27 PM CDT Leatha called from pt Dental office () asking if pt needs pre-antibiotics for dental services.please advise.Thank you Contact:[phone] documented in this encounter Plan of Treatment Not on file documented as of this encounter Visit Diagnoses Not on filedocumented in this encounter Care Teams Parts Counter Salesperson Relationship Specialty Start Date End Date Scott Oneill MD PCP - General Internal Medicine 04/27/20 documented as of this encounter
--- OUTSIDE RECORDS SUMMARY | 2024-04-04 01:42 | XMS_ITS | Encounter Summary ---
Author Organization [facility] Address [address] [place] [address] Phone Care Team Providers Care Assembly Riveter Name Role Phone Scott Oneill MD Primary Care Provider [phone] Reason for Visit * Auth/Cert Specialty Diagnoses / Procedures Referred By Contac t Referred To Contact Referral ID Status Reason Start Date Expiration Date Visits Re quested Visits Authorized [id number] 1 1 Encounter Details Date Type Department Care Team (Late st Contact Info) Description 08/30/2020 Home Care Visit [facility] Home Health - [address] [place] [id number] Debbie Crane RN TELEPHONE ENCOUNTER Social History Tobacco Use Types Packs/Day Years [...] on file Legal Sex Male 1:23 AM 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
--- OUTSIDE RECORDS SUMMARY | 2024-04-04 01:42 | XMS_ITS | Encounter Summary ---
Author Organization [facility] Home Care Servic es Address [address] [place] [address] Phone Care Team Providers Care Network Strategist Name Role Phone Scott Oneill MD Primary Care Provider [phone] Reason for Visit * Auth/Cert Specialty Diagnoses / Procedures Referred By Arnoldoac t Referred To Contact Referral ID Status Reason Start Date Expiration Date Visits Re quested Visits Authorized [id number] 1 1 Encounter Details Date Type Department Care Team (Late st Contact Info) Description 09/06/2020 8:30 AM CDT Home Care Visit [facility] [address] [address] [address] [place] [address] Norma Jimenez NP [address] [place] [address] SN HOME VISIT Social History Tobacco Use [...] on file 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 Gender Identity Male 12/24/2023 11:25 AM CDT Sexual Orientation Straight 12/24/2023 11 :25 AM CDT documented as of this encounter Last Filed Vital Signs Vital Sign Reading Time Taken Comments Blood Pressure 148/76 09/06/2020 8:45 AM CDT Pulse 62 09/06/2020 8:45 AM CDT Temperature 36.3 ??C (97.3 ??F) 09/06/2020 8:45 AM CD T Respiratory Rate 20 09/06/2020 8:45 AM CDT Oxygen Saturation 97% 09/06/2020 8:45 AM CDT Inhaled Oxygen Concentration - - Weight 102.5 kg (226 lb) 09/06/2020 8:45 AM CDT Height - - Body Mass Index 37.61 07/17/2020 8:05 PM CDT documented in this encounter Plan of Treatment Not on file documented as of this encounter Visit Diagnoses Not on filedocumented in this encounter Home Health Visit - Care Plan Visit Details Visit Type -SN Home Visit Discipline -Group Home Problems Problem Description Start Date Status Goals Interve ntions Homebound Status Disciplines: Group Home unable to leave the home without the assistance of another person. Decreased strength, endurance and balance. Elevated fall risk; unable to negotiate steps and/or uneven surfaces independently.Tushar johns's homebound status 06/17/2020 Active 1 goal linked to scheduled/documen yun intervention 1 goal intervention scheduled/documen yun in this visit Medications Disciplines: Group Home Management of home medications 06/17/2020 Active 1 goal linked to scheduled/documen yun intervention 1 goal intervention scheduled/documen yun in this visit Monitor patient's vital signs every home health visit Disciplines: Group Home Monitor patient's vital signs every home health visit. 06/17/2020 Active 1 goal linked to scheduled/documen yun intervention 1 problem intervention scheduled/documen yun in this visit 2 goal interventions scheduled/documen yun in this visit Standardized Guidelines Disciplines: Group Home Standardized Guidelines 06/17/2020 Active 1 goal linked to scheduled/documen yun intervention 1 goal intervention scheduled/documen yun in this visit Pain Disciplines: Group Home Alteration in comfort 06/17/2020 Active 1 goal linked to scheduled/documen yun intervention 1 goal intervention scheduled/documen yun in this visit Wound Care Disciplines: Group Home Wound care needed: wound #4, Chest. 06/17/2020 Active - 1 problem intervention scheduled/documen yun in this visit Wound Risk of Infection Disciplines: Group Home Risk of infections related to wounds 06/17/2020 Active 1 goal linked to scheduled/documen yun intervention 3 goal interventions scheduled/documen yun in this visit Knowledge Deficit - Other Disease Process and Management Disciplines: Group Home Disease process and management, CAD 06/17/2020 Active 1 goal linked to scheduled/documen yun intervention 1 goal intervention scheduled/documen yun in this visit Reduced Circulation - CHF Disciplines: Group Home Reduced circulation 06/18/2020 Active 1 goal linked to scheduled/documen yun intervention 1 goal intervention scheduled/documen yun in this visit Goals Goal Associated Problem Outcome Goal Met? Visit Notes Patient recieves care at the most appropriate care setting Description: Patient receives care at the most appropriate care setting. Homebound Status Progressing No Understand and follow medication therapy Description: Patient/caregiver will understand and follow prescribed medication therapy as evidence by having up to date medication list in home & ability to verbalize purpose, schedule, and side effects by the end of the episode of care Medications No Measure vital signs during every home health visit during episode of care Description: Home head start assistant teacher to measure vital signs during every home health visit during episode of care. Monitor patient's vital signs every home health visit Progressing No Understanding of when to notify MD in absence of home care staff Description: Understanding of when to notify MD in absence of home care staff Standardized Guidelines No Report that pain has been reduced or controlled Description: Report that pain has been reduced or controlled Pain Progressing No Knowledgeable of infection Description: : Patient will remain free of infection and able to recognizes of signs of infection by 06/20/20. Wound Risk of Infection No Understanding of disease process Description: Understanding of disease process, CAD. Knowledge Deficit - Other Disease Process and Management No Demonstrate optimal circulation Description: Patient will demonstrate optimal cardiac output within disease limitations as evidenced by ability to resume and maintain adapted lifestyle without distress or complications by the end of the episode of care. Agency standard parameters: MD to be notified Reduced Circulation - CHF No Interventions Intervention Associated Problem/Goal Status Variance Visit Notes Homebound Status Description: unable to leave the home without the assistance of another person. Decreased strength, endurance and balance. Elevated fall risk; unable to negotiate steps and/or uneven surfaces independently. Problem:Homebound Status Goal:Patient recieves care at the most appropriate care setting Completed Patient is homebound because he is unable to negotiate steps and/or uneven surfaces independently. Patient is unable to leave the home without the assistance of another person. Patient has decreased strength, endurance, and balance which all increases his risk for falls. Instruct on Medication Management Description: Instruct patient/caregiver in medication administration, purpose, dosages, preparation, scheduling, side effects, food/drug interactions, storage, drug allergies, and potential complications. Problem:Medications Goal:Understand and follow medication therapy Completed Patient reports taking all medications as prescribed and denies taking any new medications or have any questions regarding his medications. Monitor Vital Signs Description: Monitor blood pressure, pulse, oxygen saturation, respirations Problem:Monitor patient's vital signs every home health visit Goal:Measure vital signs during every home health visit during episode of care Completed SN monitored patient's blood pressure, pulse, oxygen saturation, respirations, and temperature. VSS. Supervising Discipline notification of abnormal vital signs Description: Use standardized clinical guidelines of abnormal vitals signs to report to physician. (SBP 90-160, DBP 40-90, O2Sat 88-100%, temporal temp less than 101.5) Problem:Monitor patient's vital signs every home health visit Goal:Measure vital signs during every home health visit during episode of care Completed SN will use standardized clinical guidelines of abnormal vitals signs to report to physician (SBP 90-160, DBP 40-90, RR 14-24, SpO2 88-100%, and temporal temp >101.5). Monitor weight Description: patient to weigh daily and record. Problem:Monitor patient's vital signs every home health visit Completed Patient's weight today was 226lbs. Stable. Home Care Staff Absence Description: In absence of Home Care staff the patient/caregiver should call HHC and/or MD office. Problem:Standardize d Guidelines Goal:Understanding of when to notify MD in absence of home care staff Completed In the absence of the Home Home Care Consultant, the patient should call our 24 hours on-call nursing staff @[phone] or their MD for any questions or concerns. Patient and caregiver verbalized understanding. Instruct on pain management techniques Description: Instruct in pharmacologic and nonpharmacologic pain management techniques. Problem:Pain Goal:Report that pain has been reduced or controlled Completed Patient denies experiencing any pain or taking any PRN pain medications in the past 24 hours. Perform wound care as instructed by physician Description: Wound #4 chest Patient/Caregiver/SN to change dressing every other day or as needed for excessive drainage. Remove dressing. Cleanse with gentle soap. Patient may shower and cleanse with soap and water then pat dry. Finish using collagen (Kristina) before using Fibrichol collagen to wound then cover with Allevyn. CLIFTON Ridley RN/Dana Gibson GLASS BLOWING LATHE OPERATOR on 09/01/20 @1557 Problem:Wound Care Completed Wound #4 chest Patient removed dressing and showered prior to SN arrival. SN assessed and measured wound per wound documentation. SN placed Kristina in wound bed and covered with Alleyvn. Patient tolerated wound dressing change without difficulty. Patient states that [facility] Home Care RNs changes his wound dressings on Mondays and Wednesdays, Wound Clinic changes his wound dressings on Fridays, and his changes his wound dressings on Sundays. No issues. No complaints. Disposal of Dressing Description: Dispose of soiled dressing by place in bag then place in patient's trashcan. Problem:Wound Risk of Infection Goal:Knowledgeable of infection Completed SN disposed of soiled dressings by placing in bag then in patient's trashcan. Instruct Hand Washing Description: Instruct patient/caregiver on hand wash technique Problem:Wound Risk of Infection Goal:Knowledgeable of infection Completed SN instructed patient on proper handwashing techniques. Patient and caregiver verbalized understanding. Instruct on the signs and symptoms of infection Description: Assess wound with each visit for s/sx of infection Problem:Wound Risk of Infection Goal:Knowledgeable of infection Completed Assessed wound. No s/s infection noted. Notification of Complications Description: Instruct patient/caregiver when to notify SN/MD of complications Problem:Knowledge Deficit - Other Disease Process and Management Goal:Understanding of disease process Completed Instructed patient on signs and symptoms of infection and when to call retail coverage merchandiser lead and/or MD (i.e, fever, chills, sweats, erythema, edema, warmth, purulent drainage, increase pain, or increase in wound size). Patient and caregiver verbalized understanding. Skilled assessment decreased cardiac output Description: Assess for exacerbation of congestive heart failure. Agency standard parameters: MD to be notified if systolic BP at rest <80>160, diastolic BP at rest <50>100, pulse at rest <60>110. SN to review weight log at every visit. Notify MD of increasing edema or shortness of breath. Problem:Reduced Circulation - CHF Goal:Demonstrate optimal circulation Completed Per vital sign and cardiovascular documentation. documented in this encounter Care Teams Network Strategist Relationship Specialty Start Date End Date Scott Oneill MD PCP - General Internal Medicine 04/27/20 documented as of this encounter
--- OUTSIDE RECORDS SUMMARY | 2024-04-04 01:42 | XMS_ITS | Encounter Summary ---
Author Organization [facility] Healthcare Address [address] [place] [address] Care Team Providers Care Used Car Make Ready Mechanic Name Role Phone Scott Oneill MD Primary Care Provider [phone] [phone] Encounter Details Date Type Department Care Team (Latest Contact Info) Description 05/22/2023 9:40 PM AUTOMOTIVE PRODUCT SPECIALIST - 05/22/2023 11:59 PM AUTOMOTIVE PRODUCT SPECIALIST Hospital Encounter [facility] [address] [place] [id number] Discharge Disposition: Discharge to home or self [...] on file 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 ??There will be no report generated by a [facility] Radiologist. Narrative [facility] - 05/22/2023 9:40 PM AUTOMOTIVE PRODUCT SPECIALIST EXAMINATION: ??Images For Reference Purposes Only us Marce Bernal MD IMG CT PROCEDURES Final Resu lt [facility] documented in this encounter Visit Diagnoses Not on filedocumented in this encounter Care Teams Used Car Make Ready Mechanic Relationship Specialty Start Date End Date Scott Oneill MD PCP - General Internal Medicine 04/27/20 documented as of this encounter
--- OUTSIDE RECORDS SUMMARY | 2024-04-04 01:42 | XMS_ITS | Encounter Summary ---
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 Gender Identity Male 12/24/2023 11:25 AM CDT Sexual Orientation Straight 12/24/2023 11 :25 AM CDT documented as of this encounter Medications at Time of Discharge apixaban (ELIQUIS) 5 mg tablet Take 1 tablet (5 mg total) by mouth 2 (two) times a day aspirin 81 mg enteric coated tablet Take 1 tablet (81 mg total) by mouth daily 06/15/2020 furosemide (LASIX) 40 mg tablet Take 1 tablet (40 mg total) by mouth daily 03/27/2020 labetaloL (NORMODYNE,TRAND ATE) 200 mg tablet Take 1 tablet (200 mg total) by mouth 2 (two) times a day 03/26/2020 potassium chloride ER 20 mEq CR tablet Take 1 tablet (20 mEq total) by mouth 2 (two) times a day 04/06/2020 atorvastatin (LIPITOR) 20 mg tablet Take 2 tablets (40 mg total) by mouth daily 06/15/2020 4 gabapentin (NEURONTIN) 300 mg capsule Take 300 mg by mouth 2 (two) times a day 01/26/2020 3 HYDROcodone-acet aminophen (NORCO) 5-325 mg per tabletIndication s:Pain [The details of the medication are not available because there are pending changes by a home health clinician.] 40 tablet 07/13/2020 1 traMADoL (ULTRAM) 50 mg tabletIndication s:Neuropathic Pain,Pain Take 50 mg by mouth 2 (two) times a day as needed for pain. rx [id number] QTY 29 [facility] Indications: neuropathic pain, pain 06/09/2020 3 Vitamin D2 1,250 mcg (50,000 unit) capsule [...] on filedocumented in this encounter Care Teams Stores Despatch Hand Relationship Specialty Start Date End Date Scott Oneill MD PCP - General Internal Medicine 04/27/20 documented as of this encounter
--- OUTSIDE RECORDS SUMMARY | 2024-04-04 01:42 | XMS_ITS | Encounter Summary ---
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 Gender Identity Male 12/24/2023 11:25 AM CDT Sexual Orientation Straight 12/24/2023 11 :25 AM CDT documented as of this encounter Plan of Treatment Not on file documented as of this encounter Visit Diagnoses Not on filedocumented in this encounter Discontinued Medications Medication Sig Discontinue Reason Start Date End Da te HYDROcodone-acetaminop hen (NORCO) 5-325 mg per tabletIndications:Pain [The details of the medication are not available because there are pending changes by a home health clinician.] Therapy completed 07/13/2020 09/18/2020 documented as of this encounter Care Teams Tree Planter Relationship Specialty Start Date End Date Scott Oneill MD PCP - General Internal Medicine 04/27/20 documented as of this encounter
--- OUTSIDE RECORDS SUMMARY | 2024-04-04 01:42 | XMS_ITS | Encounter Summary ---
Author Organization [facility] Home Care Servic es Address [address] [place] [address] Phone Care Team Providers Care Dry Can Tender Name Role Phone Scott Oneill MD Primary Care Provider [phone] Reason for Visit * Auth/Cert Specialty Diagnoses / Procedures Referred By Rocky t Referred To Contact Referral ID Status Reason Start Date Expiration Date Visits Re quested Visits Authorized [id number] 1 1 Encounter Details Date Type Department Care Team (Late st Contact Info) Description 09/21/2020 9:00 AM CDT Home Care Visit [facility] [address] [address] [address] [place] [address] Polly Saldaña RN SN HOME VISIT Social [...] on file 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 Gender Identity Male 12/24/2023 11:25 AM CDT Sexual Orientation Straight 12/24/2023 11 :25 AM CDT documented as of this encounter Last Filed Vital Signs Vital Sign Reading Time Taken Comments Blood Pressure 144/78 09/21/2020 9:16 AM CDT Pulse 66 09/21/2020 9:16 AM CDT Temperature 36.6 ??C (97.9 ??F) 09/21/2020 9:16 AM CD T Respiratory Rate 18 09/21/2020 9:16 AM CDT Oxygen Saturation 97% 09/21/2020 9:16 AM CDT Inhaled Oxygen Concentration - - Weight 99.8 kg (220 lb) 09/21/2020 9:16 AM CDT Height - - Body Mass [...] problem intervention scheduled/documen yun in this visit 1 goal intervention scheduled/documen yun in this visit Wound Care Disciplines: Group Home Wound care needed: wound #4, Chest. 06/17/2020 Active - 1 problem intervention scheduled/documen yun in this visit Wound Risk of Infection Disciplines: Group Home Risk of infections related to wounds 06/17/2020 Active 1 goal linked to scheduled/documen yun intervention 1 goal intervention scheduled/documen yun in this visit Knowledge Deficit [...] visit during episode of care Description: Home claim clinician to measure vital signs during every home [...] every home health visit Completed weight monitored Perform wound care as instructed by physician [...] infection Completed dressing disposed of per guidelines Notification of Complications Description: Instruct patient/caregiver when to notify SN/MD of complications Problem:Knowledge Deficit - Other Disease Process and Management Goal:Understanding of disease process Completed verbalized understanding Skilled assessment decreased cardiac output Description: Assess for exacerbation of congestive heart failure. Agency standard parameters: MD to be notified if systolic BP at rest <80>160, diastolic BP at rest <50>100, pulse at rest <60>110. SN to review weight log at every visit. Notify MD of increasing edema or shortness of breath. Problem:Reduced Circulation - CHF Goal:Demonstrate optimal circulation Completed no complications at this time documented in this encounter Home Health Visit - Actions and Narratives Narratives SN arrived to home, greeted by patient, identified by name and , SN assessment perforemd, see visit note. Wound assessment and care performed, see wound sheet. See careplan for SN instructions and interventions documented in this encounter Care Teams Dry Can Tender Relationship Specialty Start Date End Date Scott Oneill MD PCP - General Internal Medicine 04/27/20 documented as of this encounter
--- OUTSIDE RECORDS SUMMARY | 2024-04-04 01:42 | XMS_ITS | Encounter Summary ---
Author Organization [facility] Home Care Servic es Address [address] [place] [address] Phone Care Team Providers Care Forensic Analyst Name Role Phone Scott Oneill MD Primary Care Provider [phone] Reason for Visit * Auth/Cert Specialty Diagnoses / Procedures Referred By Rocky t Referred To Contact Referral ID Status Reason Start Date Expiration Date Visits Re quested Visits Authorized [id number] 1 1 Encounter Details Date Type Department Care Team (Late st Contact Info) Description 10/02/2020 10:00 AM CDT Home Care Visit [facility] [address] [address] [address] [place] [address] Polly Saldaña RN SN HOME VISIT Social [...] on file 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 Gender Identity Male 12/24/2023 11:25 AM CDT Sexual Orientation Straight 12/24/2023 11 :25 AM CDT documented as of this encounter Last Filed Vital Signs Vital Sign Reading Time Taken Comments Blood Pressure 132/72 10/02/2020 9:37 AM CDT Pulse 60 10/02/2020 9:37 AM CDT Temperature 36.4 ??C (97.5 ??F) 10/02/2020 9:37 AM CD T Respiratory Rate 18 10/02/2020 9:37 AM CDT Oxygen Saturation 99% 10/02/2020 9:37 AM CDT Inhaled Oxygen Concentration - - Weight 99.8 kg (220 lb) 10/02/2020 9:37 AM CDT Height - - Body Mass Index 36.61 07/17/2020 8:05 PM CDT documented in this encounter Plan of Treatment Not on file documented as of this encounter Visit Diagnoses Not on filedocumented in this encounter Home Health Visit - Care Plan Visit Details Visit Type -SN Home Visit Discipline -Fdc Problems Problem Description Start Date Status Goals Interve ntions Homebound Status Disciplines: Fdc unable to leave the home without the assistance of another person. Decreased strength, endurance and balance. Elevated fall risk; unable to negotiate steps and/or uneven surfaces independently.Jessica hensley's homebound status 06/17/2020 Active 1 goal linked to scheduled/documen yun intervention 1 goal intervention scheduled/document ed in this visit Monitor patient's vital signs every home health visit Disciplines: Fdc Monitor patient's vital signs every home health visit. 06/17/2020 Active 1 goal linked to scheduled/documen yun intervention 1 problem intervention scheduled/document ed in this visit 1 goal intervention scheduled/document ed in this visit Wound Care Disciplines: Fdc Wound care needed: wound #4, Chest. 06/17/2020 Active - 1 problem intervention scheduled/document ed in this visit Wound Risk of Infection Disciplines: Fdc Risk of infections related to wounds 06/17/2020 [...] visit during episode of care Description: Home emergency department clinician to measure vital signs during every [...] health visit during episode of care Completed vs wnl Monitor weight Description: patient to weigh daily [...] soiled dressing disposed of per guidelines Instruct on the signs and symptoms of infection Description: Assess wound with each visit for s/sx of infection Problem:Wound Risk of Infection Goal:Knowledgeable of infection Completed no s&s of infection documented in this encounter Home Health Visit - Actions and Narratives Narratives SN arrived to home, greeted by patient, identified by name and . SN assessment performed, see visit on. Wound assessment performed, see wound sheet. Wound healed. DC planned for next visit. Wound clinic discharged patient. Non coverage letter signed documented in this encounter Care Teams Forensic Analyst Relationship Specialty Start Date End Date Scott Oneill MD PCP - General Internal Medicine 04/27/20 documented as of this encounter
--- OUTSIDE RECORDS SUMMARY | 2024-04-04 01:42 | XMS_ITS | Encounter Summary ---
Author Organization [facility] es Address [address] [place] [address] Phone Care Team Providers Care Record Librarian Name Role Phone Scott Oneill MD Primary Care Provider [phone]- [phone] Reason for Visit * Auth/Cert Specialty Diagnoses / Procedures Referred By Rocky t Referred To Contact Referral ID Status Reason Start Date Expiration Date Visits Re quested Visits Authorized [id number] 1 1 Encounter Details Date Type Department Care Team (Late st Contact Info) Description 09/14/2020 10:00 AM CDT Home Care Visit 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 Gender Identity Male 12/24/2023 11:25 AM CDT Sexual Orientation Straight 12/24/2023 11 :25 AM CDT documented as of this encounter Last Filed Vital Signs Vital Sign Reading Time Taken Comments Blood Pressure 136/72 09/14/2020 10:14 AM CDT Pulse 70 09/14/2020 10:14 AM CDT Temperature 36.8 ??C (98.2 ??F) 09/14/2020 10:14 AM C DT Respiratory Rate 18 09/14/2020 10:14 AM CDT Oxygen Saturation 98% 09/14/2020 10:14 AM CDT Inhaled Oxygen Concentration - - Weight 99.8 kg (220 lb) 09/14/2020 10:14 AM CDT Height - - Body Mass Index 36.61 07/17/2020 8:05 PM CDT documented in this encounter Plan of Treatment Not on file documented as of this encounter Visit Diagnoses Not on filedocumented in this encounter Home Health Visit - Care Plan Visit Details Visit Type -SN Home Visit Discipline -Usp Problems Problem Description Start Date Status Goals Interve ntions Homebound Status Disciplines: Usp unable to leave the home without the assistance of another person. Decreased strength, endurance and balance. Elevated fall risk; unable to negotiate steps and/or uneven surfaces independently.Tushar johns's homebound status 06/17/2020 Active 1 goal linked to scheduled/documen yun intervention 1 goal intervention scheduled/documen yun in this visit Monitor patient's vital signs every home health visit Disciplines: Usp Monitor patient's vital signs every home health visit. 06/17/2020 Active 1 goal linked to scheduled/documen yun intervention 1 problem intervention scheduled/documen yun in this visit 1 goal intervention scheduled/documen yun in this visit Wound Care Disciplines: Usp Wound care needed: wound #4, Chest. 06/17/2020 Active - 1 problem intervention scheduled/documen yun in this visit Wound Risk of Infection Disciplines: Usp Risk of infections related to wounds 06/17/2020 Active 1 goal linked to scheduled/documen yun intervention 1 goal intervention scheduled/documen yun in this visit Reduced Circulation - CHF Disciplines: Usp Reduced circulation 06/18/2020 Active 1 goal linked [...] visit during episode of care Description: Home supervisor functional testing to measure vital signs during every home health visit during episode of care. Monitor patient's vital signs every home health visit No Knowledgeable of infection Description: : Patient will remain free of infection and able to recognizes of signs of infection by 06/20/20. Wound Risk of Infection No Demonstrate optimal circulation Description: Patient will [...] vital signs every home health visit Completed patient monitors weight Perform wound care as instructed by physician Description: Wound #4 chest Patient/Caregiver/SN to change dressing daily. Remove dressing. Cleanse with gentle soap. Patient may shower and cleanse with soap and water then pat dry. Apply iodosorb gel then cover with Allevyn. CLIFTON Ridley RN/Dana Gibson NP Problem:Wound Care Completed wound care perfomed Disposal of Dressing Description: Dispose of soiled dressing by place in bag then place in patient's trashcan. Problem:Wound Risk of Infection Goal:Knowledgeable of infection Completed soiled dressing disposed of per guidelines Skilled assessment decreased cardiac output Description: Assess for exacerbation of congestive heart failure. Agency standard parameters: MD to be notified if systolic BP at rest <80>160, diastolic BP at rest <50>100, pulse at rest <60>110. SN to review weight log at every visit. Notify MD of increasing edema or shortness of breath. Problem:Reduced Circulation - CHF Goal:Demonstrate optimal circulation Completed No S&S of failure noted documented in this encounter Home Health Visit - Actions and Narratives Narratives SN arrived to home, greeted by patient, identified by name and . SN assessment performed, see visit note. Wound assessment and care performed, see wound addendum. See careplan for SN instructions and interventions documented in this encounter Care Teams Record Librarian Relationship Specialty Start Date End Date Scott Oneill MD PCP - General Internal Medicine 04/27/20 documented as of this encounter
--- OUTSIDE RECORDS SUMMARY | 2024-04-04 01:42 | XMS_ITS | Encounter Summary ---
Author Organization [facility] Address [address] [place] [address] Care Team Providers Care Flash Welding Machine Operator Name Role Phone Scott Oneill MD Primary Care Provider [phone] [phone] Reason for Visit * Reason Comments Follow-up 4 mo f/u Scar still hurts CABG on 06/12/20 Encounter Details Date Type Department Care Team (Late st Contact Info) Description 10/26/2020 8:00 AM CDT Office Visit [facility] Cardiology [address] [place] [address] Kathrin Austin MD [address] [address] S/P CABG x 3 (Primary Dx); Mixed hyperlipidemia; Family history of early CAD; Hypertension secondary to other renal disorders; Chronic deep vein thrombosis (DVT) of proximal vein of lower extremity, unspecified laterality (HCC); Stage 3b chronic kidney disease (HCC) Social History Tobacco [...] on file 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 Gender Identity Male 12/24/2023 11:25 AM CDT Sexual Orientation Straight 12/24/2023 11 :25 AM CDT documented as of this encounter Last Filed Vital Signs Vital Sign Reading Time Taken Comments Blood Pressure 130/68 10/26/2020 7:57 AM CDT Pulse 72 10/26/2020 7:57 AM CDT Temperature - - Respiratory Rate - - Oxygen Saturation 99% 10/26/2020 7:57 AM CDT Inhaled Oxygen Concentration - - Weight 105 kg (231 lb 6.4 oz) 10/26/2020 7:57 AM CDT Height 165.1 cm (5' 5 ) 10/26/2020 7:57 AM CDT Body Mass Index 38.51 10/26/2020 7:57 AM CDT documented in this encounter Progress Notes * Kathrin Austin MD - 10/26/2020 8:00 AM CDT [facility] DATE OF VISIT: 10/26/2020 CHIEF COMPLAINT Chief Complaint Patient presents with ??? Follow-up 4 mo f/u ??? Scar still hurts CABG on 06/12/20 HPI Britton Nielsen is a 65 y.o. 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 Also history of obstructive sleep apnea on CPAP. He was referred to my office here for evaluation for chest pain. He reports central burning chest discomfort upon short walks that last for about 3-5 minutes in radiating to both arms. Start about a couple months ago. He underwent Lexiscan stress test at [facility] that was normal with no [...] significant three-vessel disease. He was referred to [facility] and underwent CABGx3 by Dr. Cordero with BURNS to LAD, SVG to ramus and SVG to RCA. Left radial artery was harvested but was too small to be used. He did well postoperatively and he is here for follow-up. It has so me pain around the incision site, fatigability. He is very happy with medical care at [facility]. He denies lower limb edema, dizziness, syncope. 10/26/2020-returns for follow-up appointment. Apparently had nonhealing of the upper sternal wound.He was taken to OR by Dr. Mccoy and underwent exploration of the wound and placement of VAC. the wound has healed well. Gained 20 lb since last visit. Stable dyspnea on exertion. No anginal chest pain. Denies dizziness, palpitations or syncope. MEDICAL HISTORY Past Medical History: Diagnosis Date ??? Arthritis ??? Coronary artery disease ??? DVT (deep venous thrombosis) (CMS/HCC) ??? History of transfusion ??? Hyperlipidemia ??? Hypertension ??? Overweight ??? Renal failure ??? Skin cancer ??? Sleep apnea Past Surgical History: Procedure Laterality Date ??? CARDIAC CATHETERIZATION 06/08/2020 ??? CORONARY ARTERY BYPASS GRAFT 06/12/2020 CABG X3 ??? NO PAST SURGERIES Social History Tobacco Use ??? Smoking status: Former Smoker ??? Smokeless tobacco: Never Used Vaping Use ??? Vaping Use: Never assessed Substance Use Topics ??? Alcohol use: Yes Comment: 6 beers a year ??? Drug use: Not Currently Family History Problem Relation Age of Onset ??? Heart disease Mother ??? Heart disease Father ??? Other (Septic ) Sister ??? Cancer Brother MEDICATIONS HOME MEDICATIONS : apixaban (ELIQUIS) 5 mg tablet aspirin 81 mg enteric coated tablet atorvastatin (LIPITOR) 20 mg tablet furosemide (LASIX) 40 mg tablet gabapentin (NEURONTIN) 300 mg capsule labetaloL (NORMODYNE,TRANDATE) 200 mg tablet potassium chloride ER 20 mEq CR tablet traMADoL (ULTRAM) 50 mg tablet Vitamin D2 1,250 mcg (50,000 unit) capsule ALLERGIES No Known Allergies REVIEW OF SYSTEMS Review of Systems Constitutional: Positive for malaise/fatigue. Negative for chills and fever. HENT: Positive for hearing loss. Negative for congestion and sore throat. Eyes: Negative for blurred vision and double vision. Cardiovascular: Positive for chest pain and dyspnea on exertion. Negative for claudication, leg swelling, near-syncope, orthopnea, palpitations, paroxysmal nocturnal dyspnea and [...] allergies and hives. PHYSICAL EXAM Vitals BP 130/68 (BP Location: Left arm, Patient Position: Sitting) Pulse 72 Ht 165.1 cm (5' 5 ) Wt 105 kg (231 lb 6.4 oz) SpO2 99% BMI 38.51 kg/m?? Body mass index is 38.51 kg/m??. Physical Exam Constitutional: Appearance: He is well-developed. He is obese. HENT: Head: Normocephalic and atraumatic. Right Ear: External ear normal. Left Ear: External ear normal. Nose: Congestion present. Eyes: General: No scleral icterus. Left eye: [...] mass. Tenderness: There is no abdominal tenderness. Musculoskeletal: General: No tenderness or deformity. Cervical back: Normal range of motion and neck supple. Right lower leg: Edema present. Left lower leg: Edema present. Skin: General: Skin is warm. Findings: No erythema or rash. Neurological: Mental Status: He is alert and oriented to person, place, and time. Cranial Nerves: No cranial nerve deficit. Motor: No abnormal muscle tone. Psychiatric: Mood [...] Ejection fraction 63% Cardiac catheterization May 2020-at [facility]. High-grade stenosis involving ostial ramus, ostial left circumflex artery and RCA. The LAD in the cranial view 90% ostial E. Distal left main 50% ASSESSMENT Diagnoses and all orders for this visit: S/P CABG x 3 (Primary) Mixed hyperlipidemia Family history of early CAD Hypertension secondary to other renal disorders Chronic deep vein thrombosis (DVT) of proximal vein of lower extremity, unspecified laterality (CMS/HCC) Stage 3b chronic kidney disease PLAN/RECOMMENDATIONS -patient status post CABG x3. Chest wall healed well. Continue aspirin and Eliquis. I confirmed with that he is safe to take an aspirin 81 mg daily. -regards to hypertension, blood pressure is controlled. Continue current medications. In regards to stage 3 kidney disease it seems that the patient has glomerular nephritis and followswith Nephrology. His kidney function remained stable after the bypass surgery. - in regards to hyperlipidemia, continue statin. -patient had significant weight gain about 20 lb in the last 4 months. Counseled patient regarding importance of quitting sweet intake including juice, beer, candy, cookies. Currently enrolled in cardiac rehab. Follow up in the office in 3 months Kathrin Austin MD documented in this encounter Plan of Treatment Not on file documented as of this encounter Visit Diagnoses Diagnosis S/P CABG x 3- Primary Postsurgical aortocoronary bypass status Mixed hyperlipidemia Family history of early CAD Family history of ischemic heart disease Hypertension secondary to other renal disorders Chronic deep vein thrombosis (DVT) of proximal vein of lower extremity, unspecified laterality (HCC) Stage 3b chronic kidney disease (HCC) documented in this encounter Care Teams Flash Welding Machine Operator Relationship Specialty Start Date End Date Scott Oneill MD PCP - General Internal Medicine 04/27/20 documented as of this encounter
--- OUTSIDE RECORDS SUMMARY | 2024-04-04 01:42 | XMS_ITS | Encounter Summary ---
Author Organization [facility] Healthcare Address [address] [place] [address] Care Team Providers Care Plug Maker Name Role Phone Scott Oneill MD Primary Care Provider [phone] [phone] Encounter Details Date Type Department Care Team (Latest Contact Info) Description 05/22/2023 11:40 AM CLERK TYPIST - 05/22/2023 11:59 PM CLERK TYPIST Hospital Encounter [facility] [address] [place] [id number] Microscopic polyangiitis (HCC) Discharge Disposition: Discharge to [...] on file Legal Sex Male 1:23 AM CLERK TYPIST Gender Identity Male 12/24/2023 11:25 AM CDT [...] VIEWS Schedule Routine, Read Routine (OP Routine) 05/22/2023 11:44 AM CLERK TYPIST Microscopic polyangiitis (HCC) documented in this encounter Results * XR Chest Pa Lateral 2 Views (05/22/2023 11:44 AM CLERK TYPIST) Anatomical Region Laterality Modality Body, Chest N/A Computed Radiogr aphy 05/22/2023 11:5 1 AM CLERK TYPIST Impressions 05/22/2023 12:02 PM CLERK TYPIST Comparison to chest radiograph from 07/17/2020 Median [...] Suresh Benitez M.D. Narrative 05/22/2023 12:02 PM CLERK TYPIST EXAMINATION: 2 view chest radiograph Procedure Note [...] it. Electronically signed by: Suresh Benitez M.D. Marce Bernal MD IMG XR PROCEDURES Final Resu lt documented in this encounter Visit Diagnoses Diagnosis Microscopic polyangiitis (HCC) Polyarteritis nodosa documented in this encounter Care Teams Plug Maker Relationship Specialty Start Date End Date Scott Oneill MD PCP - General Internal Medicine 04/27/20 documented as of this encounter
--- OUTSIDE RECORDS SUMMARY | 2024-04-04 01:42 | XMS_ITS | Encounter Summary ---
Author Organization [facility] Home Care [facility] Address [address] [place] [address] Phone Care Team Providers Care Meat Boner And Slicer Name Role Phone Scott Oneill MD Primary Care Provider [phone]- [phone] Reason for Visit * Auth/Cert Specialty Diagnoses / Procedures Referred By Contac t Referred To Contact Referral ID Status Reason Start Date Expiration Date Visits Re quested Visits Authorized [id number] 1 1 Encounter Details Date Type Department Care Team (Late st Contact Info) Description 10/01/2020 Home Care Visit [facility] Home Health - [address] [address] [address] [place] [id number] Polly Saldaña RN TELEPHONE ENCOUNTER Social History Tobacco Use [...] file 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
--- OUTSIDE RECORDS SUMMARY | 2024-04-04 01:42 | XMS_ITS | Encounter Summary ---
Author Organization [facility] Home Care [facility] Address [address] [place] [address] Phone Care Team Providers Care Grinding Machine Operator Portable Name Role Phone Sctot Oneill MD Primary Care Provider [phone]- [phone] Reason for Visit * Auth/Cert Specialty Diagnoses / Procedures Referred By Rocky t Referred To Contact Referral ID Status Reason Start Date Expiration Date Visits Re quested Visits Authorized [id number] 1 1 Encounter Details Date Type Department Care Team (Late st Contact Info) Description 10/04/2020 9:30 AM CDT Home Care Visit [facility] [address] [address] [address] [place] [address] Polly Saldaña RN SN OASIS DISCHARGE Social History Tobacco Use Types Packs/Day Years [...] on file 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 Gender Identity Male 12/24/2023 11:25 AM CDT Sexual Orientation Straight 12/24/2023 11 :25 AM CDT documented as of this encounter Last Filed Vital Signs Vital Sign Reading Time Taken Comments Blood Pressure 138/76 10/04/2020 8:51 AM CDT Pulse 60 10/04/2020 8:51 AM CDT Temperature 36.6 ??C (97.8 ??F) 10/04/2020 8:51 AM CD T Respiratory Rate 18 10/04/2020 8:51 AM CDT Oxygen Saturation 98% 10/04/2020 8:51 AM CDT Inhaled Oxygen Concentration - - Weight 99.8 kg (220 lb) 10/04/2020 8:51 AM CDT Height - - Body Mass Index 36.61 07/17/2020 8:05 PM CDT documented in this encounter Plan of Treatment Not on file documented as of this encounter Visit Diagnoses Not on filedocumented in this encounter Home Health Visit - Care Plan Visit Details Visit Type -SN OASIS Dischar ge Discipline -Retirement Problems Problem Description Start Date Status Goals Interventions Homebound Status Disciplines: Retirement unable to leave the home without the assistance of another person. Decreased strength, endurance and balance. Elevated fall risk; unable to negotiate steps and/or uneven surfaces independently.Tushar johns's homebound status 06/17/2020 Resolved on 10/04/2020 1 goal linked to scheduled/docume nted intervention 1 goal intervention scheduled/documen yun in this visit Medications Disciplines: Retirement Management of home medications 06/17/2020 Resolved on 10/04/2020 1 goal linked to scheduled/docume nted intervention Monitor patient's vital signs every home health visit Disciplines: Retirement Monitor patient's vital signs every home health visit. 06/17/2020 Resolved on 10/04/2020 1 goal linked to scheduled/docume nted intervention 1 problem intervention scheduled/documen yun in this visit 1 goal intervention scheduled/documen yun in this visit Standardized Guidelines Disciplines: Retirement Standardized Guidelines 06/17/2020 Resolved on 10/04/2020 1 goal linked to scheduled/docume nted intervention Victor Precautions Disciplines: Retirement Victor Precautions 06/17/2020 Resolved on 10/04/2020 1 goal linked to scheduled/docume nted intervention Pain Disciplines: Retirement Alteration in comfort 06/17/2020 Resolved on 10/04/2020 1 goal linked to scheduled/docume nted intervention Wound Care Disciplines: Retirement Wound care needed: wound #4, Chest. 06/17/2020 Resolved on 10/04/2020 1 goal linked to scheduled/docume nted intervention 1 problem intervention scheduled/documen yun in this visit Wound Risk of Infection Disciplines: Retirement Risk of infections related to wounds 06/17/2020 Resolved on 10/04/2020 1 goal linked to scheduled/docume nted intervention 2 goal interventions scheduled/documen yun in this visit Knowledge Deficit - Other Disease Process and Management Disciplines: Retirement Disease process and management, CAD 06/17/2020 Resolved on 10/04/2020 1 goal linked to scheduled/docume nted intervention Reduced Circulation - CHF Disciplines: Retirement Reduced circulation 06/18/2020 Resolved on 10/04/2020 1 goal linked to scheduled/docume nted intervention Wound Risk of Infection Disciplines: Retirement, Physical Therapy, Occupational Therapy, Speech Language Pathology Risk of infections related to wounds 07/21/2020 Resolved on 10/04/2020 1 goal linked to scheduled/docume nted intervention Goals Goal Associated Problem Outcome Goal Met? Visit Notes Patient recieves care at the most appropriate care setting Description: Patient receives care at the most appropriate care setting. Homebound Status Completed Yes Understand and follow medication therapy Description: Patient/caregiver will understand and follow prescribed medication therapy as evidence by having up to date medication list in home & ability to verbalize purpose, schedule, and side effects by the end of the episode of care Medications Completed Yes Measure vital signs during every home health visit during episode of care Description: Home adoption specialist to measure vital signs during every home health visit during episode of care. Monitor patient's vital signs every home health visit Completed Yes Understanding of when to notify MD in absence of home care staff Description: Understanding of when to notify MD in absence of home care staff Standardized Guidelines Completed Yes Demonstrate knowledge of universal precautions Description: Demonstrate knowledge of universal precautions Victor Precautions Completed Yes Report that pain has been reduced or controlled Description: Report that pain has been reduced or controlled Pain Completed Yes Progression towards healing Description: Wound show progression towards healing by 07/08/20. Wound Care Completed Yes Knowledgeable of infection Description: : Patient will remain free of infection and able to recognizes of signs of infection by 06/20/20. Wound Risk of Infection Completed Yes Understanding of disease process Description: Understanding of disease process, CAD. Knowledge Deficit - Other Disease Process and Management Completed Yes Demonstrate optimal circulation Description: Patient will demonstrate optimal cardiac output within disease limitations as evidenced by ability to resume and maintain adapted lifestyle without distress or complications by the end of the episode of care. Agency standard parameters: MD to be notified Reduced Circulation - CHF Completed Yes Knowledgeable of infection Description: : Patient will remain free of infection and able to recognizes of signs of infection by 08/15/20. Wound Risk of Infection Completed Yes Interventions Intervention Associated Problem/Goal Status Variance Visit [...] RN/Dana Gibson NP Problem:Wound Care Completed wound healed Instruct patient/family/caregiv er on infection control and safe disposal of dressing materials Description: Instruct patient/caregiver on how to recognized signs and symptoms of infection and when to notify CREDIT UNION EXAMINER and/or physician per Wound Education Booklet. Instruct patient/caregiver on infection control measures and how to prevent infections Problem:Wound Risk of Infection Goal:Knowledgeable of infection Completed Patient demonstrates S&S of infection Instruct on the signs and symptoms of infection Description: Assess wound with each visit for s/sx of infection Problem:Wound Risk of Infection Goal:Knowledgeable of infection Completed no S&S of infection documented in this encounter Home Health Visit - Actions and Narratives Narratives SN arrived to home, greeted by patient, identified by name and . SN assessment performed, see visit note. WOund healed. Writted DC instructions given to patient, verbalized understanding. Patient to start outpatient cardiac rehab on Friday documented in this encounter Care Teams Grinding Machine Operator Portable Relationship Specialty Start Date End Date Scott Oneill MD PCP - General Internal Medicine 04/27/20 documented as of this encounter
--- OUTSIDE RECORDS SUMMARY | 2024-04-04 01:42 | XMS_ITS | Encounter Summary ---
Author Organization [facility] Home Care Servic es Address [address] [place] [address] Phone Care Team Providers Care Allergist/Md Name Role Phone Scott Oneill MD Primary Care Provider [phone] Reason for Visit * Auth/Cert Specialty Diagnoses / Procedures Referred By Rocky t Referred To Contact Referral ID Status Reason Start Date Expiration Date Visits Re quested Visits Authorized [id number] 1 1 Encounter Details Date Type Department Care Team (Late st Contact Info) Description 09/27/2020 8:30 AM CDT Home Care Visit [facility] [address] [address] [address] [place] [address] Polly Saldaña RN SN HOME VISIT Social [...] on file 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 Gender Identity Male 12/24/2023 11:25 AM CDT Sexual Orientation Straight 12/24/2023 11 :25 AM CDT documented as of this encounter Last Filed Vital Signs Vital Sign Reading Time Taken Comments Blood Pressure 138/64 09/27/2020 8:46 AM CDT Pulse 60 09/27/2020 8:46 AM CDT Temperature 36.9 ??C (98.4 ??F) 09/27/2020 8:46 AM CD T Respiratory Rate 18 09/27/2020 8:46 AM CDT Oxygen Saturation 97% 09/27/2020 8:46 AM CDT Inhaled Oxygen Concentration - - Weight 99.3 kg (219 lb) 09/27/2020 8:46 AM CDT Height - - Body Mass Index 36.44 07/17/2020 8:05 PM CDT documented in this encounter Plan of Treatment Not on file documented as of this encounter Visit Diagnoses Not on filedocumented in this encounter Home Health Visit - Care Plan Visit Details Visit Type -SN Home Visit Discipline -Penitentiary Problems Problem Description Start Date Status Goals Interve ntions Homebound Status Disciplines: Penitentiary unable to leave the home without the assistance of another person. Decreased strength, endurance and balance. Elevated fall risk; unable to negotiate steps and/or uneven surfaces independently.Tushar johns's homebound status 06/17/2020 Active 1 goal linked to scheduled/documen yun intervention 1 goal intervention scheduled/documen yun in this visit Monitor patient's vital signs every home health visit Disciplines: Penitentiary Monitor patient's vital signs every home health visit. 06/17/2020 Active 1 goal linked to scheduled/documen yun intervention 1 problem intervention scheduled/documen yun in this visit 1 goal intervention scheduled/documen yun in this visit Fall Precautions/Safe ty Concerns Disciplines: Penitentiary Alteration in safety 06/17/2020 Active 1 goal linked to scheduled/documen yun intervention 1 goal intervention scheduled/documen yun in this visit Wound Care Disciplines: Penitentiary Wound care needed: wound #4, Chest. 06/17/2020 Active - 1 problem intervention scheduled/documen yun in this visit Wound Risk of Infection Disciplines: Penitentiary Risk of infections related to wounds 06/17/2020 Active 1 goal linked to scheduled/documen yun intervention 3 goal interventions scheduled/documen yun in this visit Reduced Circulation - CHF Disciplines: Penitentiary Reduced circulation 06/18/2020 Active 1 goal linked [...] visit during episode of care Description: Home nca certified concierge to measure vital signs during every home [...] every home health visit Completed weight monitored Code Status Description: Discuss with patient/caregiver code status Problem:Fall Precautions/Safety Concerns Goal:Demonstrate use of safety precautions Completed FULL CODE Perform wound care as instructed by physician [...] Goal:Knowledgeable of infection Completed soiled dressing disposed per guidelines Instruct patient/family/caregi margy on infection control and safe disposal of dressing materials Description: Instruct patient/caregiver on how to recognized signs and symptoms of infection and when to notify CAKE WRAPPER and/or physician per Wound Education Booklet. Instruct patient/caregiver on infection control measures and how to prevent infections Problem:Wound Risk of Infection Goal:Knowledgeable of infection Completed verbalized understanding of instructions Instruct on the signs and symptoms of infection Description: Assess wound with each visit for s/sx of infection Problem:Wound Risk of Infection Goal:Knowledgeable of infection Completed no S&S of infections Skilled assessment decreased cardiac output Description: Assess for exacerbation of congestive heart failure. Agency standard parameters: MD to be notified if systolic BP at rest <80>160, diastolic BP at rest <50>100, pulse at rest <60>110. SN to review weight log at every visit. Notify MD of increasing edema or shortness of breath. Problem:Reduced Circulation - CHF Goal:Demonstrate optimal circulation Completed no S&S documented in this encounter Home Health Visit - Actions and Narratives Narratives SN arrived to home, greeted by patient, identified by name and , SN assessment performed,see visit note. Wound assessment performed see wound note. See careplan for SN instructions and interventions documented in this encounter Care Teams Allergist/Md Relationship Specialty Start Date End Date Scott Oneill MD PCP - General Internal Medicine 04/27/20 documented as of this encounter
--- OUTSIDE RECORDS SUMMARY | 2024-04-04 01:42 | XMS_ITS | Encounter Summary ---
Author Organization [facility] Healthcare Address [address] [place] [address] Care Team Providers Care Rooming House Operator Name Role Phone Scott Oneill MD Primary Care Provider [phone] Encounter Details Date Type Department Care Team (Late st Contact Info) Description 05/22/2023 3:00 PM COUNTY TREASURER Lab [facility] Advanced Medicine 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 Gender Identity Male 12/24/2023 11:25 AM CDT Sexual Orientation Straight 12/24/2023 11 :25 AM CDT documented as of this encounter Plan of Treatment Not on file documented as of this encounter Procedures Procedure Name Priority Date/Time Associated Diagnosis Comments MYOMARKER PANEL 3 Routine 05/22/2023 3:0 8 PM COUNTY TREASURER Interstitial lung disease (CMS/HCC) ([facility]) ANH QUALITATIVE WITH REFLEX TO ANH QUANTITATIVE Routine 05/22/2023 3:08 PM COUNTY TREASURER Interstitial lung disease (CMS/HCC) (HCC) SCL 70 ANTIBODIES Routine 05/22/2023 3:0 8 PM COUNTY TREASURER Interstitial lung disease (CMS/HCC) (HCC) HOPE ANTIBODIES Routine 05/22/2023 3:08 PM COUNTY TREASURER Interstitial lung disease (CMS/HCC) (HCC) CONCRETE FOREMAN ANTIBODIES Routine 05/22/2023 3:08 PM COUNTY TREASURER Interstitial lung disease (CMS/HCC) (HCC) MEET ANTIBODY EVALUATION WITH REFLEX Routine 05/22/2023 3:08 PM COUNTY TREASURER Interstitial lung disease (CMS/HCC) (HCC) AKILAH-1 ANTIBODY Routine 05/22/2023 3:08 PM COUNTY TREASURER Interstitial lung disease (CMS/HCC) (HCC) PROTEINASE-3 ANTIBODY Routine 05/22/2023 3:08 PM COUNTY TREASURER Interstitial lung disease (CMS/HCC) (HCC) MYELOPEROXIDASE ANTIBODY Routine 05/22/2023 3:08 PM COUNTY TREASURER Interstitial lung disease (CMS/HCC) (HCC) ANTI-NEUTROPHILIC CYTOPLASMIC ANTIBODY (ANCA) WITH REFLEX TO MPO AND PR3 ABS Routine 05/22/2023 3:08 PM COUNTY TREASURER Interstitial lung disease (CMS/HCC) (HCC) CYCLIC CITRUL PEPTIDE ANTIBODY, IGG Routine 05/22/2023 3:08 PM COUNTY TREASURER Interstitial lung disease (CMS/HCC) (HCC) ALDOLASE Routine 05/22/2023 3:08 PM COUNTY TREASURER Interstitial lung disease (CMS/HCC) (HCC) SJOGRENS SYNDROME-B ANTIBODY Routine 05/22/2023 3:08 PM COUNTY TREASURER Interstitial lung disease (CMS/HCC) (HCC) SJOGRENS SYNDROME-A ANTIBODY Routine 05/22/2023 3:08 PM COUNTY TREASURER Interstitial lung disease (CMS/HCC) (HCC) RHEUMATOID FACTOR Routine 05/22/2023 3:0 8 PM COUNTY TREASURER Interstitial lung disease (CMS/HCC) (HCC) CREATINE KINASE (CK), TOTAL Routine 05/22/2023 3:08 PM COUNTY TREASURER Interstitial lung disease (CMS/HCC) (HCC) documented in this encounter Results * (ABNORMAL) MPO - myeloperoxidase antibody (05/22/2023 3:08 PM COUNTY TREASURER) Myeloperoxidase ab 1.2(H) <=0.9 Ab Index [facility] Comment: Interpretive Data Negative: ??<1 Ab Index Positive: > or = 1 Ab Index Current interpretive data was last revised on 2016. Blood 05/22/2023 3:08 PM COUNTY TREASURER 05/22/2023 4:24 PM COUNTY TREASURER Gemini Goldberg MD LAB BLOOD ORDERABLES Devorah l Result Performing Organization Address [facility] Co de Phone Number [facility] [place] [address] * PR3 - proteinase 3, Ab (05/22/2023 3:08 PM COUNTY TREASURER) Proteinase 3 ab <0.2 <=0.9 Ab Index [facility] Comment: Interpretive Data Negative: <1 Ab Index Positive: > or = 1 Ab Index Current interpretive data was last revised on 2016. Blood 05/22/2023 3:08 PM COUNTY TREASURER 05/22/2023 4:24 PM COUNTY TREASURER Gemini Goldberg MD LAB BLOOD ORDERABLES Devorah l Result Performing Organization Address [facility]/ZIP Co de Phone Number [facility] [place] [address] * Akilah-1 antibody (05/22/2023 3:08 PM COUNTY TREASURER) Akilah 1 Antibody, IgG <0.2 <=0.9 Ab Index [facility] Comment: Interpretive Data Negative: < 1.0 Ab Index Positive: > or = 1.0 Ab Index Current interpretive data was last revised on 2016. Blood 05/22/2023 3:08 PM COUNTY TREASURER 05/22/2023 4:25 PM COUNTY TREASURER Gemini Goldberg MD LAB BLOOD ORDERABLES Devorah l Result Performing Organization Address [facility] Co de Phone Number [facility] [address] * SCL 70 abs (05/22/2023 3:08 PM COUNTY TREASURER) Anti-Scl70, IgG <0.2 <=0.9 Ab Index [facility] Comment: Interpretive Data Negative: < 1.0 Ab Index Positive: > or = 1.0 Ab Index Current interpretive data was last revised on 2016. Blood 05/22/2023 3:08 PM COUNTY TREASURER 05/22/2023 4:25 PM COUNTY TREASURER Gemini Goldberg MD LAB BLOOD ORDERABLES Devorah l Result Performing Organization Address [facility] Co de Phone Number [facility] [place] [address] * CONCRETE FOREMAN abs (05/22/2023 3:08 PM COUNTY TREASURER) CONCRETE FOREMAN ab <0.2 <=0.9 Ab Index [facility] Comment: Interpretive Data Negative: < 1.0 Ab Index Positive: > or = 1.0 Ab Index Current interpretive data was last revised on 2016. Blood 05/22/2023 3:08 PM COUNTY TREASURER 05/22/2023 4:25 PM COUNTY TREASURER Gemini Goldberg MD LAB BLOOD ORDERABLES Devorah l Result Performing Organization Address [facility] Co de Phone Number [facility] [address] * Hope abs (05/22/2023 3:08 PM COUNTY TREASURER) Anti-MEET, SM <0.2 <=0.9 Ab Index [facility] Comment: Interpretive Data Negative: < 1.0 Ab Index Positive: > or = 1.0 Ab Index Current interpretive data was last revised on 2016. Blood 05/22/2023 3:08 PM COUNTY TREASURER 05/22/2023 4:25 PM COUNTY TREASURER Gemini Goldberg MD LAB BLOOD ORDERABLES Devorah l Result Performing Organization Address [facility] de Phone Number [facility] [address] * Sjogren's syndrome B ab (05/22/2023 3:08 PM COUNTY TREASURER) Anti-MEET, SS-B <0.2 <=0.9 Ab Index [facility] Comment: Interpretive Data Negative: < 1.0 Ab Index Positive: > or = 1.0 Ab Index Current interpretive data was last revised on 2016. Blood 05/22/2023 3:08 PM COUNTY TREASURER 05/22/2023 4:25 PM COUNTY TREASURER Gemini Goldberg MD LAB BLOOD ORDERABLES Devorah l Result Performing Organization Address City/[facility] Co de Phone Number [facility] [address] * Sjogren's syndrome A ab (05/22/2023 3:08 PM COUNTY TREASURER) Anti-MEET, SS-A <0.2 <=0.9 Ab Index [facility] Comment: Interpretive Data Negative: < 1.0 Ab Index Positive: > or = 1.0 Ab Index Current interpretive data was last revised on 2016. Blood 05/22/2023 3:08 PM COUNTY TREASURER 05/22/2023 4:25 PM COUNTY TREASURER Gemini Goldberg MD LAB BLOOD ORDERABLES Devorah l Result Performing Organization Address City/[facility] Co de Phone Number [facility] [place] [address] * ANH ab ql w/rflx to ANH qn (05/22/2023 3:08 PM COUNTY TREASURER) ANH Positive 1:640 [facility] Comment: Interpretive Data Normal range for ANH Qualitative Antibody = Negative. 1. ANH is performed using indirect immunofluorescence against HEp-2 cells 2. ANH titers are performed on all positive qualitative results. 3. A significantly positive ANH result is defined as a positive nuclear fluorescence at a titer of 1:80 or greater. 4. 15% of normal people above age 65 have significantly positive ANH results. ??5% or less of normal people age 65 or under have significantly positive ANH results. Current interpretive data was last revised on 2019. ANH, quant 1:640 titer [facility] ANH, interp Homogeneous [facility] Blood 05/22/2023 3:08 PM COUNTY TREASURER 05/22/2023 3:57 PM COUNTY TREASURER Gemini Goldberg MD LAB BLOOD ORDERABLES Devorah l Result Performing Organization Address [facility] Co de Phone Number [facility] [address] * (ABNORMAL) MEET ab eval w/reflex (05/22/2023 3:08 PM COUNTY TREASURER) MEET ab Positive( A) Negative [facility] Comment: Interpretive Data Positive Screens will be reflexed to specific testing for Antibodies against the following antigens: Akilah-1 Ab, CONCRETE FOREMAN Ab, Scl-70 Ab, Hope Ab, SS-A/Ro Ab, and SS- B/La Ab. Further testing for dsDNA, Centromere, or Ribosomal P antibodies is suggested in patient with a positive screen and negative specific antibodies. Current interpretive data was last revised on 2022. Blood 05/22/2023 3:08 PM COUNTY TREASURER 05/22/2023 3:57 PM COUNTY TREASURER Gemini Goldberg MD LAB BLOOD ORDERABLES Devorah l Result Performing Organization Address City/[facility] Co de Phone Number [facility] [place] [address] * Rheumatoid factor (05/22/2023 3:08 PM COUNTY TREASURER) Pathologist [facility] Rheumatoid factor, quant <10.0 0.1 - 15.0 IUnits/mL [facility] Blood 05/22/2023 3:08 PM COUNTY TREASURER 05/22/2023 3:57 PM COUNTY TREASURER Result [facility] Gemini Goldberg MD LAB BLOOD ORDERABLES Devorah l Result Performing Organization Address [facility] de Phone Number [facility] [place] [address] * Cyclic citrul peptide antibody, IgG (05/22/2023 3:08 PM COUNTY TREASURER) Pathologist [facility] CCP Ab <0.5 <=2.9 units/mL [facility] Comment: Interpretive data Negative: <3 units/mL Positive: > or equal to 3 units/mL Current interpretive data was last revised on 2016. Blood 05/22/2023 3:08 PM COUNTY TREASURER 05/22/2023 3:57 PM COUNTY TREASURER Result [facility] Gemini Goldberg MD LAB BLOOD ORDERABLES Devorah l Result Performing Organization Address [facility] Co de Phone Number [facility] [place] [address] * Creatine kinase (CK), total (05/22/2023 3:08 PM COUNTY TREASURER) CK 176 40 - 300 Units/L [facility] Blood 05/22/2023 3:08 PM COUNTY TREASURER 05/22/2023 3:57 PM COUNTY TREASURER Gemini Goldberg MD LAB BLOOD ORDERABLES Devorah l Result Performing Organization Address City/[facility]/ZIP Co de Phone Number [facility] [place] [address] * (ABNORMAL) Aldolase (05/22/2023 3:08 PM COUNTY TREASURER) Pathologist [facility] Aldolase 8.1(H) 0.1 - 8.0 Units/L [facility] Blood 05/22/2023 3:08 PM COUNTY TREASURER 05/22/2023 3:57 PM COUNTY TREASURER Gemini Goldberg MD LAB BLOOD ORDERABLES Devorah l Result Performing Organization Address City/[facility] Co de Phone Number [facility] [place] [address] * Myomarker panel 3 (05/22/2023 3:08 PM COUNTY TREASURER) Pathologist [facility] Anti-Akilah-1 ab <20 <20 Units [facility] Anti PL-7 ab Negative Negative [facility] Comment: This test was developed and its performance characteristics determined by [facility]. It has not been cleared or approved by the Food and Drug Administration. Anti PL-12 ab Negative Negative [facility] Comment: This test was developed and its performance characteristics determined by [facility]. It has not been cleared or approved by the Food and Drug Administration. Anti EJ ab Negative Negative [facility] Comment: This test was developed and its performance characteristics determined by [facility]. It has not been cleared or approved by the Food and Drug Administration. Anti OJ ab Negative Negative [facility] Comment: This test was developed and its performance characteristics determined by [facility]. It has not been cleared or approved by the Food and Drug Administration. Anti SRP ab Negative Negative [facility] Comment: This test was developed and its performance characteristics determined by [facility]. It has not been cleared or approved by the Food and Drug Administration. Anti Mi-2 ab Negative Negative [facility] Comment: This test was developed and its performance characteristics determined by [facility]. It has not been cleared or approved by the Food and Drug Administration. Polymyositis PM-SCL ab <20 <20 Units [facility] Comment: This test was developed and its performance characteristics determined by [facility]. It has not been cleared or approved by the Food and Drug Administration. Fibrillarin U3 ab Negative Negative [facility] Comment: This test was developed and its performance characteristics determined by [facility]. It has not been cleared or approved by the Food and Drug Administration. ?Interpretation for Anti-Akilah-1, [id number]-2fceyv, ?Anti-MDA-5, Anti-NXP-2, Anti-PM/Scl-100, ?Anti-SS-A 52 kD, Anti-U1 CONCRETE FOREMAN: ?Negative: ?<20 ?Weak Positive: ? 20 - 39 ?Moderate Positive: ? 40 - 80 ?Strong Positive: ? >80 ?. Test Performed by: [facility] [address] [place] [address] Anti U2 SN CONCRETE FOREMAN ab Negative Negative [facility] Comment: This test was developed and its performance characteristics determined by [facility]. It has not been cleared or approved by the Food and Drug Administration. Anti U1RNP ab <20 <20 Units [facility] Anti KU ab Negative Negative [facility] Comment: This test was developed and its performance characteristics determined by [facility]. It has not been cleared or approved by the Food and Drug Administration. P155/140 ab <20 <20 Units [facility] Comment: This test was developed and its performance characteristics determined by [facility]. It has not been cleared or approved by the Food and Drug Administration. MDA-5 P140 ab <20 <20 Units [facility] Comment: This test was developed and its performance characteristics determined by [facility]. It has not been cleared or approved by the Food and Drug Administration. NXP-2 P140 ab <20 <20 Units [facility] Comment: This test was developed and its performance characteristics determined by [facility]. It has not been cleared or approved by the Food and Drug Administration. SSA52 KD ab IgG <20 <20 Units [facility] Comment: This test was developed and its performance characteristics determined by [facility]. It has not been cleared or approved by the Food and Drug Administration. Blood 05/22/2023 3:08 PM COUNTY TREASURER 05/22/2023 8:13 PM COUNTY TREASURER Gemini Goldberg MD LAB BLOOD ORDERABLES Devorah rich Result [facility] [place] [address] [facility] * (ABNORMAL) Anti-Neutrophilic Cytoplasmic Antibody (ANCA) with Reflex to MPO and PR3 Abs (43:08 PM COUNTY TREASURER) ANCA Indetermi tran(A) Negative [facility] Comment:Indeterminate for P- ANCA - Results by antigen specific immunoassay (MPO & PR3) to follow. May indicate ulcerative colitis or Crohn's disease. Blood 05/22/2023 3:08 PM COUNTY TREASURER 05/22/2023 3:57 PM COUNTY TREASURER us Gemini Goldberg MD LAB BLOOD ORDERABLES eDvorah rich Result [facility] [place] [address] documented in this encounter Visit Diagnoses Diagnosis Interstitial lung disease (CMS/HCC) (HCC) Postinflammatory pulmonary fibrosis documented in this encounter Care Teams Rooming House Operator Relationship Specialty Start Date End Date Scott Oneill MD PCP - General Internal Medicine 04/27/20 documented as of this encounter
--- OUTSIDE RECORDS SUMMARY | 2024-04-04 01:42 | XMS_ITS | Encounter Summary ---
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 ??There will be no report generated by a [facility] Radiologist. Narrative [facility] - 05/22/2023 8:26 PM LEAD BURNER HELPER EXAMINATION: ??Images For Reference Purposes Only us Marce Bernal MD IMG CT PROCEDURES Final Resu lt [facility] documented in this encounter Visit Diagnoses Not on filedocumented in this encounter Care Teams Vice President And Portfolio Manager Relationship Specialty Start Date End Date Scott Oneill MD PCP - General Internal Medicine 04/27/20 documented as of this encounter
--- OUTSIDE RECORDS SUMMARY | 2024-04-04 01:42 | XMS_ITS | Encounter Summary ---
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 Magaña will clear pt to resume it. Leatha said she will check with Dr. Magaña to see if pt should resume tonight or tomorrow. * Telephone Encounter - Belen Arthur - 12/05/2020 12:28 PM CDT Leatha called from Dr. Magaña office states they received the cardiac clearance form in regards to holding Eliquis but does not state when pt should resume Elqiuis. Please advise. Thank you. Contact: documented in this encounter Plan of Treatment Not on file documented as of this encounter Visit Diagnoses Not on filedocumented in this encounter Care Teams Gum Sprayer Relationship Specialty Start Date End Date Scott Oneill MD PCP - General Internal Medicine 04/27/20 documented as of this encounter
--- OUTSIDE RECORDS SUMMARY | 2024-04-04 01:42 | XMS_ITS | Encounter Summary ---
Author Organization [facility] Address [address] [place] [address] Phone Care Team Providers Care Judicial Administrative Assistant Name Role Phone Scott Oneill MD Primary Care Provider [phone] Reason for Visit * Auth/Cert Specialty Diagnoses / Procedures Referred By Contac t Referred To Contact Referral ID Status Reason Start Date Expiration Date Visits Re quested Visits Authorized [id number] 1 1 Encounter Details Date Type Department Care Team (Late st Contact Info) Description 09/24/2020 Home Care Visit [facility] Home Health - [address] [place] [id number] Polly Saldaña RN TRAVEL SCREENING CASE COMMUNICATION Social History Tobacco Use Types Packs/Day Years [...] file 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
--- OUTSIDE RECORDS SUMMARY | 2024-04-04 01:42 | XMS_ITS | Encounter Summary ---
Author Organization [facility] Address [address] [place] [address] Phone Care Team Providers Care Brush Holder Assembler Name Role Phone Scott Oneill MD Primary Care Provider [phone] Reason for Visit * Auth/Cert Specialty Diagnoses / Procedures Referred By Contac t Referred To Contact Referral ID Status Reason Start Date Expiration Date Visits Re quested Visits Authorized [id number] 1 1 Encounter Details Date Type Department Care Team (Late st Contact Info) Description 09/05/2020 Home Care Visit [facility] - [place] [address] [place] [address] [address] [place] [address] Norma Jimenez NP [address] [place] [id number] 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
--- OUTSIDE RECORDS SUMMARY | 2024-04-04 01:42 | XMS_ITS | Encounter Summary ---
Author Organization [facility] Address [address] [place] [address] Phone Care Team Providers Care Carpet Cleaning Technician Name Role Phone Scott Oneill MD Primary Care Provider [phone] Reason for Referral * Diagnostic Imaging (Routine) - Closed Specialty Diagnoses / Procedures Referred By Contac t Referred To Contact Diagnoses Thoracic spine pain Procedures X-ray thoracic spine 2 views Tiffanie Weiss MD [address] [address] Phone: tel: fax: [address] [phone] Referral ID Status Reason Start Date Expiration Date Visits Re quested Visits Authorized [id number] Closed 06/04/2023 07/03/2024 1 1 DUE FURNACE OPERATOR * Diagnostic Imaging (Routine) - Closed Specialty Diagnoses / Procedures Referred By Contac t Referred To Contact Diagnoses Chronic SI joint pain Procedures XR Sacroiliac Joints 3 or More Views Tiffanie Weiss MD [address] [address] [address] Phone: tel: fax: [address] [phone] Referral ID Status Reason Start Date Expiration Date Visits Re quested Visits Authorized [id number] Closed 06/04/2023 07/03/2024 1 1 DUE FURNACE OPERATOR Reason for Visit * Consultation (Routine) - Closed Specialty Diagnoses / Procedures Referred By Rocky blancas Referred To Contact Rheumatology Diagnoses Microscopic polyangiitis (HCC) Hernan Padron MD [address] [facility] [address] [place] [address] Phone: tel: fax: [facility] (All Locations) Referral ID Status Reason Start Date Expiration Date V isits Requested Visits Authorized [id number] Closed Specialty Services Required 04/17/2023 05/16/2024 1 1 Encounter Details Date Type Department Care Team (Late st Contact Info) Description 06/04/2023 2:00 PM RESIDUE FURNACE OPERATOR Office Visit [facility] Rheumatology [address] [facility] 5[address] [place] [address] [place] [address] Cervical spine pain (Primary Dx); Microscopic polyangiitis (HCC); Lumbar spine pain; Chronic SI joint pain; Thoracic spine pain; Bilateral hand pain Social History Tobacco Use Types Packs/Day [...] on file Legal Sex Male 1:23 AM RESIDUE FURNACE OPERATOR Gender Identity Male 12/24/2023 11:25 AM CDT Sexual Orientation Straight 12/24/2023 11 :25 AM CDT 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 Start Date Job End Date [employer], 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, 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 Not on file Not on file Not on file documented as of this encounter Last Filed Vital Signs Vital Sign Reading Time Taken Comments Blood Pressure 146/80 06/04/2023 2:29 PM RESIDUE FURNACE OPERATOR Pulse 62 06/04/2023 2:29 PM RESIDUE FURNACE OPERATOR Temperature 36.6 ??C (97.8 ??F) 06/04/2023 2:06 PM CS T Respiratory Rate - - Oxygen Saturation 96% 06/04/2023 2:06 PM RESIDUE FURNACE OPERATOR 94-96 Inhaled Oxygen Concentration - - Weight 102.3 kg (225 lb 9.6 oz) 06/04/2023 2:06 PM RESIDUE FURNACE OPERATOR Height 165.1 cm (5' 5 ) 06/04/2023 2:06 PM RESIDUE FURNACE OPERATOR Body Mass Index 37.54 06/04/2023 2:06 PM RESIDUE FURNACE OPERATOR documented in this encounter Patient Instructions * Patient Instructions* Norma Choi RMA - 06/04/2023 2:00 PM RESIDUE FURNACE OPERATOR Lab/Xray results may be available to you via [employer] within 24-[address] Weiss 6-7 business days to fully review all testing results. Please note critical results alerts are sent toDr. Weiss same day. We will call you should anything require immediate attention. DUE FURNACE OPERATOR documented in this encounter Progress Notes * Tiffanie Wiess MD - 06/04/2023 2:00 PM CST Images from the original note were not included. RHEUMATOLOGY CONSULT NOTE Referring Physician: Hernan Padron MD Reason for Referral: Polyarthralgia Chief Complaint: Polyarthralgia HPI: Britton Nielsen is a 68 y.o. male, referred for evaluation of polyarthralgia The patient states that he has been dealing with exertional dyspnea for the past [address] chest showed evidence of interstitial lung disease. ILD first noted in 03/2017 as bibasilar GGO. Noted to restrictive PFTs 11/17/2020. 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 He has had cough with this exertional dyspnea as well that has been mainly nonproductive. He uses 2 L of oxygen at nightand with exercise. States that he often feels that his phlegm is thick and hard to cough up. He had gross hematuria early this year. He was taken off Eliquis. He had a CT scan of the abdomen pelvis done that was unrevealing. He is now back on Eliquis. He also reports a history of GI bleed and ulcers. Reports joint pain from head to toe. States [...] on his CT and worsening oxygenation. He is referred to us for further evaluation of treatment options. He is also getting established withour pulmonary ILD team as well. Previous Rheumatologic Diagnosis: ANCA Vasculitis Previous Rheumatologic Medicines: Cyclophosphamide, mycophenolate, prednisone Current Rheumatologic Medicines: None REVIEW OF SYSTEMS: (POSITIVES IN BOLD) GENERAL: Morning stiffness (30 minutes or more), fatigue, fever,chills, night sweats, weight loss >10 lbs, weight gain >10 lbs EYES: Blurred vision, red eye, eye pain, dry eyes, eyelid sores EARS: Wax, hearing loss, ringing in the ears, drainage, ear cartilage pain NOSE: Nasal sores, bleeding, sinus drainage, congestion, cartilage pain MOUTH and NECK: Teeth decay, thrush, dry mouth, ulcers, angular cheilosis, lymphadenopathy HEART: Chest pain, palpitations, orthopnea, syncope, edema LUNGS: Shortness of breath, cough, pleurisy, wheezing, rib fracture GI: Nausea, vomiting, reflux, hematemesis, abdominal pain, diarrhea, constipation, rectal bleed, hemorrhoids : Nocturia, dysuria, frequency, urgency, kidney stones, brown foamy urine, hematuria, vaginal discharge, gross hematuria SKIN: Rash, itching, dry skin, acne, eczema x 1 time, resolved with topical therapy MS: Muscle weakness, muscle tenderness, muscle cramps, joint pain, joint swelling NEURO: Headaches, seizures, dizziness, confusion, numbness, tingling in b/l legs and feet HEME: Bruising, bleeding, swollen glands, anemia, low cell counts VASC: Edema, blood clots, poor circulation, ? 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 Past Medical History: Diagnosis Date Arthritis Coronary [...] or 2 Frequency of Binge Drinking: Never No Known Allergies Current Outpatient Medications Medication Sig Dispense Refill albuterol HFA (PROVENTIL HFA,VENTOLIN HFA,PROAIR HFA) 90 mcg/actuation inhaler INHALE 2 PUFFS BY MOUTH EVERY 4 HOURS NEEDED FOR SHORTNESS OF BREATH FOR WHEEZING Anoro Ellipta 62.5-25 mcg/actuation blister with device 1 puff daily apixaban (ELIQUIS) 5 mg tablet Take 1 tablet (5 mg total) by mouth 2 (two) times a day aspirin 81 mg enteric coated tablet Take 1 tablet (81 mg total) by mouth daily atorvastatin (LIPITOR) 20 mg tablet Take 2 tablets (40 mg total) by mouth daily calcium carbonate-vitamin D3 1500 mg (600 mg [...] tablets (100 mg total) by mouth daily pantoprazole DR (PROTONIX) 40 mg EC tablet Take 1 tablet (40 mg total) by mouth every morning potassium chloride ER 20 mEq CR tablet [...] 6 (six) hours as needed for pain calcium carbonate (TUMS) 500 mg (200 mg elemental calcium) chewable tablet Take 1 tablet/chew tab (500 mg total) by mouth Vitamin D2 1,250 mcg (50,000 unit) capsule Take 1 capsule (50,000 Units total) by mouth once a weekOn Friday (Patient not taking: Reported on 05/22/2023) No current facility-administered medications for this visit. Physical Examination: BP 146/80 (BP Location: Right arm, Patient Position: Sitting) Pulse 62 Temp 36.6 ??C (97.8 ??F)(Oral) Ht 165.1 cm (5' 5 ) Wt 102.3 kg (225 lb 9.6 oz) SpO2 96% Comment: 94-96 BMI 37.54 kg/m?? RAPID 3 SCORE RAPID 3 SCORE: 18 General: alert, cooperative, no distress HEENT: EOMI,OLLIE, moist oral mucosa, no oral/nasal lesion, no lymphadenopathy Skin: Rash - Nodules: - Lungs: clear to auscultation bilaterally Heart: regular rate and rhythm .Pulses OK. No edema Abdomen: soft without mass, non-tender, with normal bowel sounds Neuromuscular: Cranial nerves grossly intact, muscle strength normal and symmetrical in upper and lower extremities Tinel's Test +: Right: no Left: no Joint Review Right Left Shoulder normal normal Elbow normal normal Wrist normal normal MCP Swelling and tenderness over the 2/3 MCP joint normal PIP normal normal DIP normal normal Knee normal normal Ankle normal normal Foot normal normal Normal Hip ROM: yes SI Joints: Normal Spine: Normal alignment, tenderness to palpation over the L spine; reduced ROM at the cervical spine Swollen Joints: 0 Trigger/ tender Points; Tight Muscle Groups: no LABORATORY STUDIES AND OTHER DATA: WBC Date Value Ref Range Status 07/18/2020 [...] 06/15/2020 91.1 81.3 - 96.4 fL Final INR Date Value Ref Range Status 06/12/2020 1.4 (H) 0.9 - 1.2 Final Comment: Interpretive data Oral anticoagulant therapeutic ranges: Venous thromboembolism prophylaxis or treatment: 2.0-3.0 CARDIOLOGY Standard range: 2.0-3.0 High-intensity range: 2.5-3.5 Refer to indication-specific guidelines for appropriate target ranges for prosthetic heart valve replacement. Current interpretive data was last revised on 2019. 06/12/2020 1.5 (H) 0.9 - 1.2 Final Comment: Interpretive data Oral anticoagulant therapeutic ranges: Venous thromboembolism prophylaxis or treatment: 2.0-3.0 CARDIOLOGY Standard range: 2.0-3.0 High-intensity range: 2.5-3.5 Refer to indication-specific guidelines for appropriate target ranges for prosthetic heart valve replacement. Current interpretive data was last revised on 2019. 06/08/2020 1.2 0.9 - 1.2 Final Comment: Interpretive data Oral anticoagulant therapeutic ranges: Venous thromboembolism prophylaxis or treatment: 2.0-3.0 CARDIOLOGY Standard range: 2.0-3.0 High-intensity range: 2.5-3.5 Refer to indication-specific guidelines for appropriate target ranges for prosthetic heart valve replacement. Current interpretive data was last revised on 2019. Creatinine Date Value Ref Range Status 07/18/2020 [...] 06/08/2020 0.6 0.1 - 1.2 mg/dL Final Labs from 03/2023: CCP, ANH Talbot negative, ANCA negative PFT DATA: 05/22/23: FEV1 2.35 L (85 % pred) , FVC 2.60 L (72 % pred), FEV1 FVC ratio 90.3 %, DLCO 43% CT Chest 04/03/23: Kidney Biopsy IMPRESSION: Britton Nielsen, 68 y.o. 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 Bilateral pulmonary emboli and bilateral lower extremity DVT in October 2017 Coronary artery disease with CABG June 2020 PLAN/RECOMMENDATIONS: Obtain labs including antiphospholipid antibody panel, urine studies, complements, and repeat ANCA panel Obtain XR C spine, T spine, L spine, SI joints, and hands Will discuss case at the upcoming CTD ILD case conference Further recommendations to be made after review of above studies The patient is to return to clinic in 4-6 weeks. Thank you for the consultation and allowing me to participate in the care of your patient. Orders Placed This Encounter Procedures Urinalysis reflex to microscopic and culture Urine, clean voided Standing Status: Future Number of Occurrences: 1 Standing Expiration Date: 06/03/2024 XR Hand Bilateral 3 or More Views of Each Standing Status: Future Number of Occurrences: 1 Standing Expiration Date: 06/03/2024 Order Specific Question: Where should this order be performed? Answer: [facility] [[id number]] XR Spine Cervical W Flexion And Extension 4 or 5 Views Order Specific Question: Clinical question to be answered: Answer: Pain. R/o inflammatory arthritis Order Specific Question: Where should this order be performed? Answer: [facility] [152] XR Spine Lumbar 4 or More Views Order Specific Question: Clinical question to be answered: Answer: Pain. Order Specific Question: Where should this order be performed? Answer: [facility] [152] XR Sacroiliac Joints 3 or More Views Order Specific Question: Clinical question to be answered: Answer: Pain. R/o sacroiliitis Order Specific Question: Where should this order be performed? Answer: [facility] [152] X-ray thoracic spine 2 views Standing Status: Future Number of Occurrences: 1 Standing Expiration Date: 06/03/2024 Order Specific Question: Where should this order be performed? Answer: [facility] [152] C3 complement Standing Status: Future Number of Occurrences: 1 Standing Expiration Date: 06/03/2024 Cardiolipin antibody, IgG and IgM Standing Status: Future Number of Occurrences: 1 Standing Expiration Date: 06/03/2024 Beta 2 glycoprotein IgM Ab Standing Status: Future Number of Occurrences: 1 Standing Expiration Date: 06/03/2024 Beta 2 glycoprotein IgG Ab Standing Status: Future Number of Occurrences: 1 Standing Expiration Date: 06/03/2024 Protein / creatinine ratio, urine, random Standing Status: Future Number of Occurrences: 1 Standing Expiration Date: 06/03/2024 Be advised that voice recognition software has been used on this chart and inadvertent errors may occur. These may not represent a true interpretation of the dictation given. documented in this encounter Plan of Treatment Not on file documented as of this encounter Procedures Procedure Name Priority Date/Time Associated Diagnosis Comments XR SPINE CERVICAL W FLEXION AND EXTENSION 4 VIEWS Schedule Routine, Read Routine (OP Routine) 06/04/2023 4:51 PM RESIDUE FURNACE OPERATOR Cervical spine pain XR SACROILIAC JOINTS 3 OR MORE VIEWS Schedule Routine, Read Routine (OP Routine) 06/04/2023 4:51 PM RESIDUE FURNACE OPERATOR Chronic SI joint pain XR SPINE LUMBAR COMPLETE 4 OR MORE VIEWS Schedule Routine, Read Routine (OP Routine) 06/04/2023 4:51 PM RESIDUE FURNACE OPERATOR Lumbar spine pain documented in this encounter Results * X-ray thoracic spine 2 views (06/04/2023 4:51 PM RESIDUE FURNACE OPERATOR) Anatomical Region Laterality Modality Spine N/A Computed Radiogr aphy 06/04/2023 5:07 PM RESIDUE FURNACE OPERATOR Impressions 06/04/2023 5:07 PM RESIDUE FURNACE OPERATOR 1. ??Findings of diffuse idiopathic skeletal hyperostosis [...] Cayetano Carrizales MD Narrative 06/04/2023 5:07 PM RESIDUE FURNACE OPERATOR EXAMINATION: XR SPINE CERVICAL W FLEXION AND [...] MD IMG XR PROCEDURES Final Result * XR Sacroiliac Joints 3 or More Views (06/04/2023 4:51 PM RESIDUE FURNACE OPERATOR) Anatomical Region Laterality Modality Pelvis, Body N/A Computed Radiogr aphy 06/04/2023 5:07 PM RESIDUE FURNACE OPERATOR Impressions 06/04/2023 5:07 PM RESIDUE FURNACE OPERATOR 1. ??Findings of diffuse idiopathic skeletal hyperostosis [...] Cayetano Carrizales MD Narrative 06/04/2023 5:07 PM RESIDUE FURNACE OPERATOR EXAMINATION: XR SPINE CERVICAL W FLEXION AND [...] by: Cayetano Carrizales MD Tiffanie Weiss MD IM XR PROCEDURES Final Result * XR Spine Lumbar 4 or More Views (06/04/2023 4:51 PM RESIDUE FURNACE OPERATOR) Anatomical Region Laterality Modality Spine N/A Computed Radiogr aphy 06/04/2023 5:07 PM RESIDUE FURNACE OPERATOR Impressions 06/04/2023 5:07 PM RESIDUE FURNACE OPERATOR 1. ??Findings of diffuse idiopathic skeletal hyperostosis [...] Cayetano Carrizales MD Narrative 06/04/2023 5:07 PM RESIDUE FURNACE OPERATOR EXAMINATION: XR SPINE CERVICAL W FLEXION AND [...] MD IMG XR PROCEDURES Final Result * XR Spine Cervical W Flexion And Extension 4 or 5 Views (06/04/2023 4:51 PM RESIDUE FURNACE OPERATOR) Anatomical Region Laterality Modality Spine N/A Computed Radiogr aphy 06/04/2023 5:07 PM RESIDUE FURNACE OPERATOR Impressions 06/04/2023 5:07 PM RESIDUE FURNACE OPERATOR 1. ??Findings of diffuse idiopathic skeletal hyperostosis [...] Cayetano Carrizales MD Narrative 06/04/2023 5:07 PM RESIDUE FURNACE OPERATOR EXAMINATION: XR SPINE CERVICAL W FLEXION AND [...] MD IMG XR PROCEDURES Final Result * XR Hand Bilateral 3 or More Views of Each (06/04/2023 4:51 PM RESIDUE FURNACE OPERATOR) Anatomical Region Laterality Modality Upper Extremities, Hand Computed Radiography 06/04/2023 5:07 PM RESIDUE FURNACE OPERATOR Impressions 06/04/2023 5:07 PM RESIDUE FURNACE OPERATOR 1. ??Findings of diffuse idiopathic skeletal hyperostosis [...] Cayetano Carrizales MD Narrative 06/04/2023 5:07 PM RESIDUE FURNACE OPERATOR EXAMINATION: XR SPINE CERVICAL W FLEXION AND [...] MD IMG XR PROCEDURES Final Result * Protein / creatinine ratio, urine, random (06/04/2023 3:38 PM RESIDUE FURNACE OPERATOR) Protein, ur, quant 12.4 mg/dL Comment: Interpretive Data No reference range established. Current interpretive data was last revised 2018. Creatinine Ur 126.8 mg/dL [facility] Comment: Interpretive Data No reference range established. Current interpretive data was last revised 2018. Protein/creatinin e ratio 97.8 0.0 - 180.0 mg/g CR [facility] Urine 06/04/2023 3:38 PM RESIDUE FURNACE OPERATOR 06/04/2023 4:37 PM RESIDUE FURNACE OPERATOR Tiffanie Weiss MD LAB URINE ORDERABLES Final Resul t [facility] [address] [facility] Department [place] [address] * Urinalysis reflex to microscopic and culture Urine, clean voided (06/04/2023 3:38 PM RESIDUE FURNACE OPERATOR) Color, ur Straw Yellow Clarity, ur Clear Clear [facility] Specific gravity, ur 1.017 1.003 - 1.030 [facility] pH, urine 5.5 [facility] Comment: Interpretive Data ? Urine pH is affected by diet, medications, systemic acid-base disturbances, and renal tubular function. ??pH may affect urinary stone formation. ??For example, urine pH below 6.0 may help reduce the tendency for calcium phosphate stones and pH greater than 6.0 may reduce the tendency for uric acid stone formation. Source: [employer] Current Interpretive Data was last revised on 2017 Protein, ur ql Trace Negative [facility] Glucose, ur ql Negative Negative [facility] Ketones, ur Negative Negative [facility] Bilirubin, ur Negative Negative [facility] Blood, ur Negative Negative [facility] Urobilinogen, ur <2.0 <2.0 mg/dL [facility] Nitrite, ur Negative Negative [facility] Leukocyte esterase, ur Negative Negative [facility] UA reflex comment Reflex conditions for microscopic UA and culture not met. [facility] Urine, clean voided 06/04/2023 3:38 PM RESIDUE FURNACE OPERATOR 06/04/2023 4:37 PM RESIDUE FURNACE OPERATOR Tiffanie Weiss MD LAB MICROBIOLOGY - GENERAL ORDER DIANE Final Result Performing Organization Address [facility] de Phone Number [facility] [place] [address] * Beta 2 glycoprotein IgG Ab (06/04/2023 3:38 PM RESIDUE FURNACE OPERATOR) [facility] Beta-2 glycoprotein I, IgG <1.4 <=19.9 units/mL Comment: Interpretive Data Negative: <20 U/mL Positive: > or = 20 U/mL ? Beta-2 glycoprotein 1 (Beta-2 GP1) antibodies are a more specific marker of thrombotic risk. It is expected that some samples will be ACL positive and Beta- 2 [id number]. In order to improve specificity, the International Congress on Antiphospholipid Antibodies recommends Beta-2 GP1 antibodies of IgG or IgM isotype ??(> the 99th percentile), obtained twice, at least 12 weeks apart, to support a diagnosis of antiphospholipid syndrome. The cutoff for this assay was developed from data based on the 99th percentile. These results were obtained with the [employer] 2200 System. Beta 2GP1 IgG values obtained with different manufacturers' assay methods may not be used interchangeably. Current interpretive data was last revised on 2016. Blood 06/04/2023 3:38 PM RESIDUE FURNACE OPERATOR 06/04/2023 4:37 PM RESIDUE FURNACE OPERATOR Tiffanie Weiss MD LAB BLOOD ORDERABLES Final Resul t Performing Organization Address [facility]/[employer] de Phone Number [facility] [place] [address] * Beta 2 glycoprotein IgM Ab (06/04/2023 3:38 PM RESIDUE FURNACE OPERATOR) Beta-2 glycoprotein I, IgM 3.3 <=19.9 units/mL Comment: Interpretive Data Negative: <20 U/mL Positive: > or = 20 U/mL ? Beta- 2 glycoprotein 1 (Beta-2 GP1) antibodies are a more specific marker of thrombotic risk. It is expected that some samples will be ACL positive and Beta- 2 GP1 negative. In order to improve specificity, the International Congress on Antiphospholipid Antibodies recommends Beta-2 GP1 antibodies of IgG or IgM isotype ??(> the 99th percentile), obtained twice, at least 12 weeks apart, to support a diagnosis of antiphospholipid syndrome. The cutoff for this assay was developed from data based on the 99th percentile. The Beta-2 GP1 IgM test can produce false positive results due to cross-reactivity with Rheumatoid factor. ??These results were obtained with the [employer] 2200 System. Beta-2 GP1 IgM values obtained with different manufacturers' assay methods may not be used interchangeably. Current interpretive data was last revised on 2016. Blood 06/04/2023 3:38 PM RESIDUE FURNACE OPERATOR 06/04/2023 4:37 PM RESIDUE FURNACE OPERATOR us Tiffanie Weiss MD LAB BLOOD ORDERABLES Final Resul t [facility] Department [place] [address] * Cardiolipin antibody, IgG and IgM (06/04/2023 3:38 PM RESIDUE FURNACE OPERATOR) Cardiolipin, IgG <1.6 <=19.9 GPL U/mL Comment: Interpretive Data Negative: <20 GPL U/mL Positive: > or = 20 GPL U/mL Anticardiolipin antibodies are associated with certain clinical events including unexplained arterial and venous thromboemboli, and unexplained morbidity. However, detection of low levels of anticardiolipin antibodies occurs in both healthy individuals and patients with co-morbidities not associated with the antiphospholipid antibody (APA) syndrome including inflammatory and infectious conditions. In order to improve specificity, the International Congress on Antiphospholipid Antibodies recommends ACL antibodies of IgG or IgM isotype present in medium or high titer (e.g. > 40 GPL, or >the 99th percentile), on two or more occasions, at least 12 weeks apart, to support a diagnosis of antiphospholipid syndrome. The cutoff for this assay was developed from data based on the 99th percentile. In addition, the International Congress on Antiphospholipid Antibodies does not recommend testing for IgA AREN. These results were obtained with the [employer] 2200 System. Cardiolipin IgG values obtained with different manufacturers' assay methods may not be used interchangeably. Current interpretive data was last revised on 2016. Cardiolipin, IgM 1.4 <=19.9 MPL U/mL [facility] Comment: Interpretive Data Negative: <20 MPL U/mL Positive: > or = 20 MPL U/mL Anticardiolipin antibodies are associated with certain clinical events including unexplained arterial and venous thromboemboli, and unexplained morbidity. However, detection of low levels of anticardiolipin antibodies occurs in both healthy individuals and patients with co-morbidities not associated with the antiphospholipid antibody (APA) syndrome including inflammatory and infectious conditions. In order to improve specificity, the International Congress on Antiphospholipid Antibodies recommends ACL antibodies of IgG or IgM isotype present in medium or high titer (e.g. > 40 MPL, or >the 99th percentile), on two or more occasions, at least 12 weeks apart, to support a diagnosis of antiphospholipid syndrome. The cutoff for this assay was developed from data based on the 99th percentile. ?? In addition, the International Congress on Antiphospholipid Antibodies does not recommend testing for IgA AREN. The ACL IgM test can produce false positive results due to cross- reactivity with Rheumatoid factor, dsDNA or certain infectious disease antibodies. ??These results were obtained with the [employer] BioPlex 2200 System. Cardiolipin IgM values obtained with different manufacturers' assay methods may not be used interchangeably. Current interpretive data was last revised on 2016. Blood 06/04/2023 3:38 PM RESIDUE FURNACE OPERATOR 06/04/2023 4:37 PM RESIDUE FURNACE OPERATOR us Tiffanie Weiss MD LAB BLOOD ORDERABLES Final Resul t [facility] Department [place] [address] * C3 complement (06/04/2023 3:38 PM RESIDUE FURNACE OPERATOR) Complement C3 152.0 90.0 - 180.0 mg/dL Blood 06/04/2023 3:38 PM RESIDUE FURNACE OPERATOR 06/04/2023 4:38 PM RESIDUE FURNACE OPERATOR us Tiffanie Weiss MD LAB BLOOD ORDERABLES Final Resul t [facility] [place] [address] documented in this encounter Visit Diagnoses Diagnosis Cervical spine pain- Primary Microscopic polyangiitis (HCC) Polyarteritis nodosa Lumbar spine pain Chronic SI joint pain Disorders of sacrum Thoracic spine pain Pain in thoracic spine Bilateral hand pain Thoracic spine pain Pain in thoracic spine Bilateral hand pain documented in this encounter Discontinued Medications Medication Sig Discontinue Reason Start Date End Da te irbesartan (AVAPRO) 150 mg tablet Take 1 tablet (150 mg total) by mouth nightly Dose adjustment 06/04/2023 documented as of this encounter Historical Medications * This list may reflect changes made after this encounter. irbesartan (AVAPRO) 300 mg tablet Take 1 tablet (300 mg total) by mouth daily 05/26/2023 added in this encounter Orders Outpatient Referral Count Last Ordered Date Fir st Ordered Date AMB REFERRAL TO RHEUMATOLOGY 1 06/04/2023 documented in this encounter Care Teams Carpet Cleaning Technician Relationship Specialty Start Date End Date Scott Oneill MD PCP - General Internal Medicine 04/27/20 documented as of this encounter
--- OUTSIDE RECORDS SUMMARY | 2024-04-04 01:42 | XMS_ITS | Encounter Summary ---
Author Organization [facility] Healthcare Address [address] [place] [address] Care Team Providers Care Corn Press Operator Name Role Phone Scott Oneill MD Primary Care Provider [phone] Reason for Visit * Diagnostic Lab (Routine) - Canceled Specialty Diagnoses / Procedures Referred By Contac t Referred To Contact Lab Diagnoses Microscopic polyangiitis (HCC) Procedures HLA B 27 - [place] [address] [place] [address] [address] [place] [address] Phone: tel: fax: Referral ID Status Reason Start Date Expiration Date V isits Requested Visits Authorized [id number] Canceled 06/04/2023 07/03/2024 1 1 Encounter Details Date Type Department Care Team (Late st Contact Info) Description 06/04/2023 3:55 PM CASING TRIMMER Lab [facility] [address] [place] [id number] Microscopic polyangiitis (HCC) Social History Tobacco Use Types Packs/Day [...] on file Legal Sex Male 1:23 AM CASING TRIMMER Gender Identity Male 12/24/2023 11:25 AM CDT Sexual Orientation Straight 12/24/2023 11 :25 AM CDT 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 Start Date Job End Date [employer], 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, 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 Not on file Not on file Not on file documented as of this encounter Plan of Treatment Not on file documented as of this encounter Procedures Procedure Name Priority Date/Time Associated Diagnosis Comments BETA 2 GLYCOPROTEIN IGM AB Routine 06/04/2023 3:38 PM CASING TRIMMER Microscopic polyangiitis (HCC) BETA 2 GLYCOPROTEIN IGG AB Routine 06/04/2023 3:38 PM CASING TRIMMER Microscopic polyangiitis (HCC) URINALYSIS AND REFLEX TO MICROSCOPIC AND CULTURE Routine 06/04/2023 3:38 PM CASING TRIMMER Microscopic polyangiitis (HCC) PROTEIN / CREATININE RATIO, URINE, RANDOM Routine 06/04/2023 3:38 PM CASING TRIMMER Microscopic polyangiitis (HCC) CARDIOLIPIN ANTIBODY, IGG AND IGM Routine 06/04/2023 3:38 PM CASING TRIMMER Microscopic polyangiitis (HCC) C3 COMPLEMENT Routine 06/04/2023 3:38 PM CASING TRIMMER Microscopic polyangiitis (HCC) documented in this encounter Results * C3 complement (06/04/2023 3:38 PM CASING TRIMMER) Complement C3 152.0 90.0 - 180.0 mg/dL Blood 06/04/2023 3:38 PM CASING TRIMMER 06/04/2023 4:38 PM CASING TRIMMER us Tiffanie Weiss MD LAB BLOOD ORDERABLES Final Resul t [facility] Department [place] [address] * Cardiolipin antibody, IgG and IgM (06/04/2023 3:38 PM CASING TRIMMER) [facility] Cardiolipin, IgG <1.6 <=19.9 GPL U/mL Comment: [...] AREN. These results were obtained with the [employer]imeTray0 System. Cardiolipin IgG values obtained with different manufacturers' assay methods may not be used interchangeably. Current interpretive data was last revised on 2016. Cardiolipin, IgM 1.4 <=19.9 MPL U/mL [facility] Comment: Interpretive Data Negative: <20 MPL U/mL [...] antibodies. ??These results were obtained with the [email or web address] BioPlex 2200 System. Cardiolipin IgM values obtained with different manufacturers' assay methods may not be used interchangeably. Current interpretive data was last revised on 2016. Blood 06/04/2023 3:38 PM CASING TRIMMER 06/04/2023 4:37 PM CASING TRIMMER Tiffanie Weiss MD LAB BLOOD ORDERABLES Final Resul t Performing Organization Address [facility] de Phone Number [facility] Department [place] [address] * Beta 2 glycoprotein IgM Ab (06/04/2023 3:38 PM CASING TRIMMER) [facility] Beta-2 glycoprotein I, IgM 3.3 <=19.9 units/mL [...] factor. ??These results were obtained with the [email or web address] BioPlex 2200 System. Beta-2 GP1 IgM values obtained with different manufacturers' assay methods may not be used interchangeably. Current interpretive data was last revised on 2016. Blood 06/04/2023 3:38 PM CASING TRIMMER 06/04/2023 4:37 PM CASING TRIMMER Tiffanie Weiss MD LAB BLOOD ORDERABLES Final Resul t Performing Organization Address City/[facility] Co de Phone Number [facility] Department [place] [address] * Beta 2 glycoprotein IgG Ab (06/04/2023 3:38 PM CASING TRIMMER) Beta-2 glycoprotein I, IgG <1.4 <=19.9 units/mL Comment: Interpretive Data Negative: <20 U/mL Positive: > or = 20 U/mL ? Beta-2 glycoprotein 1 (Beta-2 GP1) antibodies are a more specific marker of thrombotic risk. It is expected that some samples will be ACL positive and Beta- 2 [id number]. In order to improve specificity, the International Congress on Antiphospholipid Antibodies recommends Beta-2 GP1 antibodies of IgG or IgM isotype ??(> the 99th percentile), obtained twice, at least 12 weeks apart, to support a diagnosis of antiphospholipid syndrome. The cutoff for this assay was developed from data based on the 99th percentile. These results were obtained with the LimeTray0 System. Beta 2GP1 IgG values obtained with different manufacturers' assay methods may not be used interchangeably. Current interpretive data was last revised on 2016. Blood 06/04/2023 3:38 PM CASING TRIMMER 06/04/2023 4:37 PM CASING TRIMMER us Tiffanie Weiss MD LAB BLOOD ORDERABLES Final Resul t [facility] Department [place] [address] * Urinalysis reflex to microscopic and culture Urine, clean voided (06/04/2023 3:38 PM CASING TRIMMER) Color, ur Straw Yellow Clarity, ur Clear Clear [facility] Specific gravity, ur 1.017 1.003 - 1.030 [facility] pH, urine 5.5 [facility] Comment: Interpretive Data ? Urine pH is affected by diet, medications, systemic acid-base disturbances, and renal tubular function. ??pH may affect urinary stone formation. ??For example, urine pH below 6.0 may help reduce the tendency for calcium phosphate stones and pH greater than 6.0 may reduce the tendency for uric acid stone formation. Source: [facility] Current Interpretive Data was last revised on 2017 Protein, ur ql Trace Negative [facility] Glucose, ur ql Negative Negative [facility] Ketones, ur Negative Negative [facility] Bilirubin, ur Negative Negative [facility] Blood, ur Negative Negative [facility] Urobilinogen, ur <2.0 <2.0 mg/dL [facility] Nitrite, ur Negative Negative [facility] Leukocyte esterase, ur Negative Negative [facility] UA reflex comment Reflex conditions for microscopic UA and culture not met. [facility] Urine, clean voided 06/04/2023 3:38 PM CASING TRIMMER 06/04/2023 4:37 PM CASING TRIMMER Tiffanie Weiss MD LAB MICROBIOLOGY - GENERAL ORDER DIANE Final Result Performing Organization Address City/[facility] Co de Phone Number [facility] [place] [address] * Protein / creatinine ratio, urine, random (06/04/2023 3:38 PM CASING TRIMMER) Protein, ur, quant 12.4 mg/dL Comment: Interpretive Data No reference range established. Current interpretive data was last revised 2018. Creatinine Ur 126.8 mg/dL [facility] Comment: Interpretive Data No reference range established. Current interpretive data was last revised 2018. Protein/creatinin e ratio 97.8 0.0 - 180.0 mg/g CR [facility] Urine 06/04/2023 3:38 PM CASING TRIMMER 06/04/2023 4:37 PM CASING TRIMMER Tiffanie Weiss MD LAB URINE ORDERABLES Final Resul t Performing Organization Address City/[facility]/ZIP Co de Phone Number [facility] [place] [address] documented in this encounter Visit Diagnoses Diagnosis Microscopic polyangiitis (HCC) Polyarteritis nodosa documented in this encounter Care Teams Corn Press Operator Relationship Specialty Start Date End Date Scott Oneill MD PCP - General Internal Medicine 04/27/20 documented as of this encounter
--- OUTSIDE RECORDS SUMMARY | 2024-04-04 01:42 | XMS_ITS | Encounter Summary ---
Author Organization [facility] Address [address] [place] [address] Phone Care Team Providers Care Ccu Nurse Name Role Phone Scott Oneill MD Primary Care Provider [phone] Encounter Details Date Type Department Care Team (Late st Contact Info) Description 05/28/2023 Documentation [facility] Pulmonary [address] Advanced Medicine 8th [place] [address] [place] [id number] Polly Paulino, [place] Social History Tobacco Use [...] on file Legal Sex Male 1:23 AM GROOVING MACHINE OPERATOR Gender Identity Male 12/24/2023 11:25 AM CDT Sexual Orientation Straight 12/24/2023 11 :25 AM CDT documented as of this encounter Progress Notes * Polly Paulino, [place] - 05/28/2023 10:14 AM CST Images from the original note were not included. 06/03/23 1522 Abhilash Capone, Polly Frank RN Scheduled 08/01/23 12:15 PFT 1:00 Dr Nadeem bowen pt 06/03/23 Messaged [facility] Please schedule pt 07/31 @ 1:[address] Bernal. Room requested in PASS. Thank you polly ===View-only below this line=== ----- Message ----- From: Abhilash Capone CMA Sent: 05/22/2023 2:59 PM GROOVING MACHINE OPERATOR To: Polly Paulino RN Subject: 4 Month follow-up ILD Polly, Can we have a slot for 4 month follow-up? Testing: PFT VING MACHINE OPERATOR VING MACHINE OPERATOR documented in this encounter Plan of Treatment Not on file documented as of this encounter Visit Diagnoses Not on filedocumented in this encounter Care Teams Ccu Nurse Relationship Specialty Start Date End Date Scott Oneill MD PCP - General Internal Medicine 04/27/20 documented as of this encounter
--- OUTSIDE RECORDS SUMMARY | 2024-04-04 01:42 | XMS_ITS | Encounter Summary ---
Author Organization [facility] Address [address] [place] [address] Care Team Providers Care Network Designer Name Role Phone Scott Oneill MD Primary Care Provider [phone] Encounter Details Date Type Department Care Team (Late st Contact Info) Description 09/15/[address] [facility] Cardiology [address] [place] [address] Kathrin Austin MD [address] [place] [address] Social History Tobacco Use Types Packs/Day [...] file Legal Sex Male 1:23 AM SENIOR SOFTWARE TEST ENGINEER Gender Identity Male 12/24/2023 11:25 AM CDT Sexual Orientation Straight 12/24/2023 11 :25 AM CDT documented as of this encounter Miscellaneous Notes * Telephone Encounter - Deneen Yañez RN - 09/15/2020 10:39 AM CDT Spoke with pt, he is interested in starting cardiac rehab and [facility] wound clinic has okay'd him to start as well. Pt said his incision is almost completely healed-there are pictures in Epic under media with most recent image. Called carter in cardiac rehab and she said pt should be fine to start but we still need an order from . Cardiac rehab forms complete and awaiting review and signature from . Told pt I should be able to get him an answer by Friday when JF returns. Pt next scheduled appt is 10/26 but he would like to start before then. Will forward to as FYI. * Telephone Encounter - Ashlee Mcclelland - 09/15/2020 9:55 AM CDT Pt called inquiring on restarting Cardiac Rehab,[facility] wound clinic states they dont see a reason why he would not be able to restart.please advise,Thank you Contact:[phone] documented in this encounter Plan of Treatment Not on file documented as of this encounter Visit Diagnoses Not on filedocumented in this encounter Care Teams Network Designer Relationship Specialty Start Date End Date Scott Oneill MD PCP - General Internal Medicine 04/27/20 documented as of this encounter
--- OUTSIDE RECORDS SUMMARY | 2024-04-04 01:42 | XMS_ITS | Encounter Summary ---
Author Organization [facility] Healthcare Address [address] [place] [address] Care Team Providers Care Hearing Therapy Teacher Name Role Phone Scott Oneill MD Primary Care Provider [phone] Encounter Details Date Type Department Care Team (Latest Contact Info) Description 05/22/2023 8:30 PM LOSS PREVENTION AUDITOR - 05/22/2023 11:59 PM LOSS PREVENTION AUDITOR Hospital Encounter [facility] [address] [place] [id number] Discharge Disposition: Discharge to home or self [...] on file Legal Sex Male 1:23 AM LOSS PREVENTION AUDITOR Gender Identity Male 12/24/2023 11:25 AM CDT [...] Comments CT BODY OUTSIDE REFERENCE Routine 05/22/2023 8:30 PM LOSS PREVENTION AUDITOR documented in this encounter Results * CT Body Outside Reference (05/22/2023 8:30 PM LOSS PREVENTION AUDITOR) Impressions [facility] - 05/22/2023 8:30 PM LOSS PREVENTION AUDITOR These images are for Reference purposes only and have not been reviewed by [facility]. ??There will be no report generated by a [facility] Radiologist. Narrative [facility] - 05/22/2023 8:30 PM LOSS PREVENTION AUDITOR EXAMINATION: ??Images For Reference Purposes Only us Marce Bernal MD IMG CT PROCEDURES Final Resu lt [facility] documented in this encounter Visit Diagnoses Not on filedocumented in this encounter Care Teams Hearing Therapy Teacher Relationship Specialty Start Date End Date Scott Oneill MD PCP - General Internal Medicine 04/27/20 documented as of this encounter
--- OUTSIDE RECORDS SUMMARY | 2024-04-04 01:42 | XMS_ITS | Encounter Summary ---
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 Gender Identity Male 12/24/2023 11:25 AM CDT Sexual Orientation Straight 12/24/2023 11 :25 AM CDT documented as of this encounter Plan of Treatment Not on file documented as of this encounter Procedures Procedure Name Priority Date/Time Associated Diagnosis Comments SCAN - RADIOLOGY/IMAGING 04/03/2023 documented in this encounter Results * SCAN - RADIOLOGY/IMAGING (04/03/2023) Anatomical Region Laterality Modality Other us Provider Scanning Final Result documented in this encounter Visit Diagnoses Not on filedocumented in this encounter Care Teams Catheterization Laboratory Technician Relationship Specialty Start Date End Date Scott Oneill MD PCP - General Internal Medicine 04/27/20 documented as of this encounter
--- OUTSIDE RECORDS SUMMARY | 2024-04-04 01:42 | XMS_ITS | Encounter Summary ---
Author Organization [facility] Healthcare Address [address] [place] [address] Care Team Providers Care Doctor Of Dental Medicine Name Role Phone Scott Oneill MD Primary Care Provider [phone] Encounter Details Date Type Department Care Team (Late st Contact Info) Description 04/21/2023 Telephone [facility] Cardiology [address] [place] [address] Kathrin Austin MD [address] [place] [address] Social History Tobacco Use Types Packs/Day [...] on file Legal Sex Male 1:23 AM CLAIMS ADJUSTER Gender Identity Male 12/24/2023 11:25 AM CDT Sexual Orientation Straight 12/24/2023 11 :25 AM CDT documented as of this encounter Miscellaneous Notes * Telephone Encounter - Umm Jenkins MA - 04/22/2023 1:49 PM CST Left msg MS ADJUSTER * Telephone Encounter - Umm Jenkins MA - 04/21/2023 2:55 PM CST No answer MS ADJUSTER * Telephone Encounter - Umm Jenkins MA - 04/21/2023 11:54 AM CLAIMS ADJUSTER Would recommend contacting PCP. Left msg MS ADJUSTER MS ADJUSTER * Telephone Encounter - Ramona Chowdhury RN - 04/21/2023 10:48 AM CST Patient called back.He stated he called last week and talked with some one. He needs a refill on his Sodium Bicarb and Pantoprazole 40 mg. He said his pharmacy [facility] in [place] sent a refillrequest but that has not been completed. Patient said the original Rx was prescribed by Dr Tavo Mishra. Patient has appt with Dr Austin on 02/02/2024. Please contact patient at [phone]. MS ADJUSTER * Telephone Encounter - Bernice Alanis - 04/21/2023 10:12 AM CLAIMS ADJUSTER Pt is requesting refills for Sodium Bicarb and Pantoprazole 40 mg. MS ADJUSTER MS ADJUSTER documented in this encounter Plan of Treatment Not on file documented as of this encounter Visit Diagnoses Not on filedocumented in this encounter Care Teams Doctor Of Dental Medicine Relationship Specialty Start Date End Date Scott Oneill MD PCP - General Internal Medicine 04/27/20 documented as of this encounter
--- OUTSIDE RECORDS SUMMARY | 2024-04-04 01:42 | XMS_ITS | Encounter Summary ---
Author Organization [facility] Address [address] [place] [address] Phone Care Team Providers Care Filler Block Inserter Remover Name Role Phone Scott Oneill MD Primary Care Provider [phone] Reason for Visit * Auth/Cert Specialty Diagnoses / Procedures Referred By Rocky t Referred To Contact Referral ID Status Reason Start Date Expiration Date Visits Re quested Visits Authorized [id number] 1 1 Encounter Details Date Type Department Care Team (Late st Contact Info) Description 09/19/2020 8:30 AM CDT Home Care Visit [facility] [address] [address] [address] [place] [address] Polly Saldaña RN SN HOME VISIT Social [...] on file Legal Sex Male 1:23 AM 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 Gender Identity Male 12/24/2023 11:25 AM CDT Sexual Orientation Straight 12/24/2023 11 :25 AM CDT documented as of this encounter Last Filed Vital Signs Vital Sign Reading Time Taken Comments Blood Pressure 132/74 09/19/2020 10:07 AM CDT Pulse 66 09/19/2020 10:07 AM CDT Temperature 36.7 ??C (98.1 ??F) 09/19/2020 10:07 AM C DT Respiratory Rate 18 09/19/2020 10:07 AM CDT Oxygen Saturation 99% 09/19/2020 10:07 AM CDT Inhaled Oxygen Concentration - - Weight 100.2 kg (221 lb) 09/19/2020 10:07 AM CDT Height - - Body Mass Index 36.78 07/17/2020 8:05 PM CDT documented in this encounter Plan of Treatment Not on file documented as of this encounter Visit Diagnoses Not on filedocumented in this encounter Home Health Visit - Care Plan Visit Details Visit Type -SN Home Visit Discipline -Mcfp Problems Problem Description Start Date Status Goals Interve ntions Homebound Status Disciplines: Mcfp unable to leave the home without the assistance of another person. Decreased strength, endurance and balance. Elevated fall risk; unable to negotiate steps and/or uneven surfaces independently.Jessica hensley's homebound status 06/17/2020 Active 1 goal linked to scheduled/documen yun intervention 1 goal intervention scheduled/document ed in this visit Monitor patient's vital signs every home health visit Disciplines: Mcfp Monitor patient's vital signs every home health visit. 06/17/2020 Active 1 goal linked to scheduled/documen yun intervention 1 problem intervention scheduled/document ed in this visit 1 goal intervention scheduled/document ed in this visit Pain Disciplines: Mcfp Alteration in comfort 06/17/2020 Active 1 goal linked to scheduled/documen yun intervention 1 goal intervention scheduled/document ed in this visit Wound Care Disciplines: Mcfp Wound care needed: wound #4, Chest. 06/17/2020 Active - 1 problem intervention scheduled/document ed in this visit Wound Risk of Infection Disciplines: Mcfp Risk of infections related to wounds 06/17/2020 [...] visit during episode of care Description: Home promotions intern to measure vital signs during every home health visit during episode of care. Monitor patient's vital signs every home health visit No Report that pain has been reduced or controlled Description: Report that pain has been reduced or controlled Pain No Knowledgeable of infection Description: : Patient [...] every home health visit Completed weight monitored Instruct on pain management techniques Description: Instruct in pharmacologic and nonpharmacologic pain management techniques. Problem:Pain Goal:Report that pain has been reduced or controlled Completed Patient verbalized understanding, pain controled Perform wound care as instructed by physician [...] Infection Goal:Knowledgeable of infection Completed dressing disposed per guidelines documented in this encounter Home Health Visit - Actions and Narratives Narratives SN arrived to home, greeted by patient, identified by name , SN assessment performed, see visit note. Wound assessment performed, see wound sheet. See care plan for SN instructions or interventions documented in this encounter Care Teams Filler Block Inserter Remover Relationship Specialty Start Date End Date Scott Oneill MD PCP - General Internal Medicine 04/27/20 documented as of this encounter
--- OUTSIDE RECORDS SUMMARY | 2024-04-04 01:42 | XMS_ITS | Encounter Summary ---
Author Organization [facility] Address [address] [place] [address] Care Team Providers Care Spd Manager Name Role Phone Scott Oneill MD Primary Care Provider [phone] Reason for Visit * Reason Onset Date Comments Cardiac rehab question 09/15/2020 Encounter Details Date Type Department Care Team (Late st Contact Info) Description 09/15/2020 Telephone Cardiovascular and Thoracic Surgery [address] [place] [address] Sheldon Giraldo, RN [address] [place] [address] Cardiac rehab question Social History Tobacco Use Types Packs/Day Years [...] on file 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 He is questioning if his wound needs to be healed to start cardiac rehab. I informed him if it is just superficial, Dr. Cordero would have no objection, but [facility] is under the direction of his limousine rental clerk. I viewed the most recent wound photo in [employer], and it is just a pinpoint wound at this point. I informed him even if Dr. Austin would prefer he wait, he can simply increase his walking at home, although not in the current extreme heatoutdoors. He verbalized understanding, and has a call out to Dr. Austin's nurse to discuss. * Telephone Encounter - Sheldon Giraldo RN - 09/15/2020 11:02 AM CDT ----- Message from Droothy Dao sent at 09/15/2020 9:45 AM CDT ----- Regarding: /ask for Sheldon Contact: Pt states just got home from clinic Wants to talk to ya about rehab Please call thanks documented in this encounter Plan of Treatment Not on file documented as of this encounter Visit Diagnoses Not on filedocumented in this encounter Care Teams Spd Manager Relationship Specialty Start Date End Date Scott Oneill MD PCP - General Internal Medicine 04/27/20 documented as of this encounter
--- OUTSIDE RECORDS SUMMARY | 2024-04-04 01:42 | XMS_ITS | Encounter Summary ---
Author Organization [facility] Address [address] [place] [address] Care Team Providers Care Clinical Lab Specialist Name Role Phone Scott Oneill MD Primary Care Provider [phone] Reason for Visit * Reason Comments Hyperlipidemia Hypertension s/p CABG Encounter Details Date Type Department Care Team (Late st Contact Info) Description 01/27/2023 11:00 AM CDT Office Visit [facility] Cardiology [address] [place] [address] Kathrin Austin MD [address] [address] S/P CABG x 3 (Primary Dx); Mixed hyperlipidemia; Hypertension secondary to other renal disorders; Family history of early CAD; Chronic deep vein thrombosis (DVT) of proximal [...] on file 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 Gender Identity Male 12/24/2023 11:25 AM CDT Sexual Orientation Straight 12/24/2023 11 :25 AM CDT documented as of this encounter Last Filed Vital Signs Vital Sign Reading Time Taken Comments Blood Pressure 139/84 01/27/2023 10:36 AM CDT Pulse 57 01/27/2023 10:36 AM CDT Temperature - - Respiratory Rate - - Oxygen Saturation 97% 01/27/2023 10:36 AM CDT Inhaled Oxygen Concentration - - Weight 103.9 kg (229 lb) 01/27/2023 10:36 AM CDT Height 165.1 cm (5' 5 ) 01/27/2023 10:36 AM CDT Body Mass Index 38.11 01/27/2023 10:36 AM CDT documented in this encounter Progress Notes * Kathrin Austin MD - 01/27/2023 11:00 AM CDT [facility] DATE OF VISIT: 01/27/2023 CHIEF COMPLAINT Chief Complaint Patient presents with Hyperlipidemia Hypertension s/p CABG HPI Britton Nielsen is a 67 y.o. male with complicated past medical history including glomerular nephritis, with GFR 30, long history of tobacco use and quit 8 years ago, obesity, DVT on Eliquis 2016, hypertension, hyperlipidemia, history of significant GI bleeding 2017 and went to [facility] and underwent Embolization of the posterior [...] ago. He underwent Lexiscan stress test at [facility] that was normal with no perfusion defect. [...] significant three-vessel disease. He was referred to [facility] and underwent CABGx3 by Dr. Cordero with BURNS to LAD, SVG to ramus and SVG to RCA. Left radial artery was harvested but was too small to be used. He did well postoperatively and he is here for follow-up. It has lucian e pain around the incision site, fatigability. He is very happy with medical care at [facility]. He denies lower limb edema, dizziness, syncope. [...] He stated that he was hospitalized around [place] time for pneumonia. He continues to follow-up with Nephrology with Dr. Barnard who at 1 point discontinued the labetalol [...] weight because he eats everything including sweets. MEDICAL HISTORY Past Medical History: Diagnosis Date Arthritis Coronary artery disease DVT (deep venous thrombosis) (CMS/HCC) (HCC) History of transfusion Hyperlipidemia Hypertension Overweight Renal failure Skin cancer Sleep apnea Past Surgical History: Procedure Laterality Date CARDIAC CATHETERIZATION 06/08/2020 CORONARY ARTERY BYPASS GRAFT 06/12/2020 CABG X3 NO PAST SURGERIES Social History Tobacco Use Smoking status: Former Smoker Smokeless tobacco: Never Used Substance Use Topics Alcohol use: Yes Comment: 6 beers a year Drug use: Not Currently Family History Problem Relation Age of Onset Heart disease Mother Heart disease Father Other (Septic ) Sister Cancer Brother MEDICATIONS HOME MEDICATIONS : apixaban (ELIQUIS) 5 mg tablet aspirin 81 mg enteric coated tablet atorvastatin (LIPITOR) 20 mg tablet furosemide (LASIX) 40 mg tablet labetaloL (NORMODYNE,TRANDATE) 200 mg tablet potassium chloride ER 20 mEq CR tablet pregabalin (LYRICA) 50 mg capsule tadalafiL (CIALIS) 20 mg tablet Vitamin D2 1,250 mcg (50,000 unit) capsule ALLERGIES No Known Allergies REVIEW OF SYSTEMS Review of Systems Constitutional: Negative for chills, fever, malaise/fatigue and weight loss. HENT: Positive for hearing loss. Negative for congestion and sore throat. Eyes: Negative for blurred vision and double vision. Cardiovascular: Positive for dyspnea on exertion and leg swelling. Negative for chest pain, claudication, near-syncope, orthopnea, palpitations, paroxysmal nocturnal dyspnea and [...] allergies and hives. PHYSICAL EXAM Vitals BP 139/84 (BP Location: Left arm, Patient Position: Sitting) Pulse 57 Ht 165.1 cm (5' 5 ) Wt 103.9 kg (229 lb) SpO2 97% BMI 38.11 kg/m?? Body mass index is 38.11 kg/m??. Physical Exam Constitutional: Appearance: He is [...] 07/18/2020 Chemistry Component Value Date/Time SODIUM 141 07/18/2020120 POTASSIUM 4.3 07/18/2020120 CHLORIDE 108 07/18/2020120 CO2 24 07/18/2020120 BUNSER 37 (H) 07/18/2020120 CREATININE 2.00 (H) 07/18/2020120 GLUCOSE 112 07/18/2020120 Component Value Date/Time CALCIUM 8.7 07/18/2020120 ALKPHOS 87 06/08/20201831 AST 14 06/08/2020 183 ALT 14 06/08/20201831 BILITOT 0.6 06/08/20201831 EKG2/06/2020-sinus bradycardia Lexiscan stress test March [address] Negative for ischemia. Ejection fraction 63% Cardiac catheterization May 2020-at [facility]. High-grade stenosis involving ostial ramus, ostial left circumflex artery and RCA. The LAD in the cranial view 90% ostial E. Distal left main 50% ASSESSMENT Diagnoses and all orders for this visit: S/P CABG x 3 (Primary) Mixed hyperlipidemia Hypertension secondary to other renal disorders Family history of early CAD Chronic deep vein thrombosis (DVT) of proximal vein of lower extremity, unspecified laterality (HCC) Stage 3b chronic kidney disease (HCC) PLAN/RECOMMENDATIONS -patient status post CABG x3 2020 [...] to hypertension, blood pressure overall controlled. Continue labetalol. Lasix. 139/84. Patient to keep blood pressure log at home and call me if the blood pressure running 140/90 or above In regards to stage 3 kidney disease it seems that the patient has glomerular nephritis and followswith Nephrology. His kidney function remained stable after the bypass surgery. He follows up with Nephrology. - in regards to hyperlipidemia, continue statin. Lipid panel doneJan2022 shows LDL 68, HDL38 and triglycerides 116. Continue Lipitor 20 mg daily. -regards to history of obstructive sleep apnea, continue CPAP. - Follow up in the office in 12 months Kathrin Austin MD documented in this encounter Plan of Treatment Not on file documented as of this encounter Visit Diagnoses Diagnosis S/P CABG x 3- Primary Postsurgical aortocoronary bypass status Mixed hyperlipidemia Hypertension secondary to other renal disorders Family history of early CAD Family history of ischemic heart disease Chronic deep vein thrombosis (DVT) of proximal vein of lower extremity, unspecified laterality (HCC) Stage 3b chronic kidney disease (HCC) documented in this encounter Historical Medications * This list may reflect changes made after this encounter. pregabalin (LYRICA) 50 mg capsule Take 1 capsule (50 mg total) by mouth 3 (three) times a day 01/21/2023 added in this encounter Care Teams Clinical Lab Specialist Relationship Specialty Start Date End Date Scott Oneill MD PCP - General Internal Medicine 04/27/20 documented as of this encounter
--- OUTSIDE RECORDS SUMMARY | 2024-04-04 01:42 | XMS_ITS | Encounter Summary ---
Author Organization [facility] Address [address] [place] [address] Care Team Providers Care Director Of Student Financial Aid Name Role Phone Scott Oneill MD Primary Care Provider [phone] Reason for Visit * Cardiology (Routine) - Closed Specialty Diagnoses / Procedures Referred By Contac t Referred To Contact Diagnoses S/P CABG x 3 Hypertension secondary to other renal disorders Procedures Transthoracic Echo (TTE) Complete W Doppler/CF Phan Austin MD [address] [place] [address] Phone: tel: fax: [facility] Referral ID Status Reason Start Date Expiration Date Visits Re quested Visits Authorized [id number] Closed 04/29/2022 05/29/2023 1 1 Encounter Details Date Type Department Care Team (Latest Contact Info) Description 07/04/2022 10:15 AM CDT Ancillary Procedure [facility] Cardiology [address] [place] [address] S/P CABG x 3; Hypertension secondary to other renal disorders Social History Tobacco Use Types Packs/Day Years [...] file 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 Gender Identity Male 12/24/2023 11:25 AM CDT Sexual Orientation Straight 12/24/2023 11 :25 AM CDT documented as of this encounter Last Filed Vital Signs Vital Sign Reading Time Taken Comments Blood Pressure 164/75 07/04/2022 9:59 AM CDT Pulse - - Temperature - - Respiratory Rate - - Oxygen Saturation - - Inhaled Oxygen Concentration - - Weight - - Height - - Body Mass Index - - documented in this encounter Plan of Treatment Not on file documented as of this encounter Procedures Procedure Name Priority Date/Time Associated Diagnosis Comments TRANSTHORACIC ECHO (TTE) COMPLETE W DOPPLER/CF WO CONTRAST Routine 07/04/2022 10:28 AM CDT S/P CABG x 3 Hypertension secondary to other renal disorders documented in this encounter Results * TRANSTHORACIC ECHO (TTE) COMPLETE W DOPPLER/CF WO CONTRAST (07/04/2022 10:28 AM CDT) Anatomical Region Laterality Modality Ultrasound 07/04/2022 10:0 2 AM CDT Narrative 07/04/2022 1:03 PM CDT [facility] Cardiology [address] [address] [address] [address] P:[phone] P:[phone] Echocardiographic Report Patient Name: BRITTON NIELSEN : 1955 Study Date: 07/04/2022 10:02:56 AM Gender: M Tech: Location: [place] Ref.Provider: PHAN AUSTIN Height(Cm): 165 BSA: 2.1 Weight(Kg): 96.6 Heart Rate: 58 BP: 164 / 74 Quality: Good Order Provider: PHAN AUSTIN Procedures: Echocardiographic Report: Transthoracic echocardiogram with complete 2D, M-Mode, and color Doppler examination. With Strain Analysis. Indications: CABG, and Hypertension. Measurements: 2D/MM ?Value ? Range ?Doppler ?Value ?Range ? EF Mod ? 73 ? AV Mean PG ? 6 mmHg ? EF Teich MM ?62 % ?[ 55 - 70 ] ?AV Peak Andry ?1.64 m/s ? LVIDd 2D ? 4.67 cm ? [ 3.90 - 5.30 ] ?AV Peak PG ? 11 mmHg ? LVIDd MM ? 4.35 cm ? [ 3.90 - 5.30 ] ?AV VTI ? 36.90 cm ? LVIDs 2D ? 3.00 cm ? [ 2.30 - 3.90 ] ?LVOT Peak Andry ?1.13 m/s ? [ 0.70 - 1.10 ] ? LVIDs MM ? 2.92 cm ? [ 2.30 - 3.90 ] ?LVOT VTI ? 27.07 cm ? LVPWd 2D ? 1.30 cm ? [ 0.60 - 1.00 ] ?MV E Peak Andry ?0.89 m/s ? [ 0.60 - 1.30 ] ? LVPWd MM ? 1.07 cm ? [ 0.60 - 1.00 ] ?MV A Peak Andry ?0.73 m/s ? [ 0.40 - 0.80 ] ? IVSd 2D ?1.30 cm ? [ 0.60 - 0.90 ] ?MV Decel Time ?201 msec ? [ 150 - 200 ] ? IVSd MM ?1.49 cm ? [ 0.60 - 0.90 ] ?PV Peak Andry ?1.05 m/s ? [ 0.40 - 0.80 ] ? LA Dimension 2D ?2.54 cm ? [ 2.70 - 3.80 ] ?TR Peak Andry ?2.80 m/s ? LA Dimension MM ?4.70 cm ? [ 2.70 - 3.80 ] ?TR Peak PG ? 31 mmHg ? AoR Diam MM ?3.47 cm ? [ 2.60 - 3.70 ] ?RVSP ? 39.00 mmHg ? LA Volume Index ?33 cc/m2 ?[ 16 - 28 ] ?Lateral E` ? 0.09 cm/sec ? ACS MM ? 1.98 cm ?E/E` ? 10 ? - Findings: Interpretation Site: Exam was interpreted at [facility]. Left Ventricle: Normal left ventricular size. Moderate concentric left ventricular hypertrophy. Diastolic dysfunction is present. Ejection fraction is measured at 73 %. Global Longitudinal Strain is -18 %. GLS is borderline. Right Ventricle: Normal right ventricular size. Normal right ventricular systolic function. Left Atrium: There is mild enlargement of left atrium. Right Atrium: Right atrium within upper limits of normal. Atrial Septum: Normal atrial septum. Mitral Valve: Normal appearance of the mitral valve. Mild mitral valve regurgitation. Aortic Valve: No evidence of hemodynamically significant aortic stenosis by Doppler. Aortic cusps appear mildly calcified. Trileaflet aortic valve. No aortic regurgitation. Tricuspid Valve: Normal appearance of the tricuspid valve. Mild pulmonary hypertension based on right ventricular systolic pressure. Estimated peak RVSP is 39 mmHg. Mild tricuspid regurgitation. Pulmonic Valve: Pulmonic valve not well visualized. Trivial regurgitation in the pulmonic valve. Pericardium: Normal pericardium with no significant pericardial effusion. Aorta: Normal aortic root. No aortic root dilation. IVC: Normal size and normal respiratory collapse consistent with normal right atrial pressure (<5 mmHg). Conclusions: Normal left ventricular size. Moderate concentric left ventricular hypertrophy. Diastolic dysfunction is present. Ejection fraction is measured at 73 %. Global Longitudinal Strain is -18 %. GLS is borderline. There is mild enlargement of left atrium. Normal appearance of the mitral valve. Mild mitral valve regurgitation. No evidence of hemodynamically significant aortic stenosis by Doppler. Aortic cusps appear mildly calcified. Trileaflet aortic valve. No aortic regurgitation. Normal appearance of the tricuspid valve. Mild pulmonary hypertension based on right ventricular systolic pressure. Estimated peak RVSP is 39 mmHg. Mild tricuspid regurgitation. Normal sinus rhythm. Electronically Signed By: Sherice Causey MD 2022-07-04 13:03:42 CDT CC: CC: Procedure Note Vito Causey MD - 07/04/2022 [facility] Cardiology [address], [place] [address] [id number], [place] [address] P:[phone] P:[phone] Echocardiographic Report Patient Name: BRITTON NIELSENPatient ID: [id number] : [id number] Date: 07/04/2022 10:02:56 AM Gender: MAccession #: [id number] Tech: SWLocation: [place] Ref.Provider: PHILIP AUSTINTRAMAINEeight(Cm): 165 BSA: 2.1Weight(Kg): 96.6 Heart Rate: 58BP: 164 / 74 Quality: GoodOrder Provider: PHAN AUSTIN Procedures: Echocardiographic Report: Transthoracic echocardiogram with complete 2D, M-Mode, and color Dopplerexamination. With Strain Analysis. Indications: CABG, and Hypertension. Measurements: 2D/MM Value Range Doppler ValueRange EF Mod 73 AV Mean PG 6 mmHg EF Teich MM 62 % [ 55 - 70 ] AV Peak Andry 1.64m/s LVIDd 2D 4.67 cm [ 3.90 - 5.30 ] AV Peak PG 11 mmHg LVIDd MM 4.35 cm [ 3.90 - 5.30 ] AV VTI 36.90cm LVIDs 2D 3.00 cm [ 2.30 - 3.90 ] LVOT Peak Andry 1.13m/s [ 0.70 - 1.10 ] LVIDs MM 2.92 cm [ 2.30 - 3.90 ] LVOT VTI 27.07cm LVPWd 2D 1.30 cm [ 0.60 - 1.00 ] MV E Peak Andry 0.89m/s [ 0.60 - 1.30 ] LVPWd MM 1.07 cm [ 0.60 - 1.00 ] MV A Peak Andry 0.73m/s [ 0.40 - 0.80 ] IVSd 2D 1.30 cm [ 0.60 - 0.90 ] MV Decel Time 201msec [ 150 - 200 ] IVSd MM 1.49 cm [ 0.60 - 0.90 ] PV Peak Andry 1.05m/s [ 0.40 - 0.80 ] LA Dimension 2D 2.54 cm [ 2.70 - 3.80 ] TR Peak Andry 2.80m/s LA Dimension MM 4.70 cm [ 2.70 - 3.80 ] TR Peak PG 31 mmHg AoR Diam MM 3.47 cm [ 2.60 - 3.70 ] RVSP 39.00mmHg LA Volume Index 33 cc/m2 [ 16 - 28 ] Lateral E` 0.09cm/sec ACS MM 1.98 cm E/E` 10 - Findings: Interpretation Site: Exam was interpreted at [facility]. Left Ventricle: Normal left ventricular size. Moderate concentric left ventricularhypertrophy. Diastolic dysfunction is present. Ejection fraction is measured at 73 %. GlobalLongitudinal Strain is -18 %. GLS is borderline. Right Ventricle: Normal right ventricular size. Normal right ventricular systolicfunction. Left Atrium: There is mild enlargement of left atrium. Right Atrium: Right atrium within upper limits of normal. Atrial Septum: Normal atrial septum. Mitral Valve: Normal appearance of the mitral valve. Mild mitral valve regurgitation. Aortic Valve: No evidence of hemodynamically significant aortic stenosis by Doppler.Aortic cusps appear mildly calcified. Trileaflet aortic valve. No aorticregurgitation. Tricuspid Valve: Normal appearance of the tricuspid valve. Mild pulmonary hypertensionbased on right ventricular systolic pressure. Estimated peak RVSP is 39 mmHg. Mildtricuspid regurgitation. Pulmonic Valve: Pulmonic valve not well visualized. Trivial regurgitation in the pulmonicvalve. Pericardium: Normal pericardium with no significant pericardial effusion. Aorta: Normal aortic root. No aortic root dilation. IVC: Normal size and normal respiratory collapse consistent with normal rightatrial pressure (<5 mmHg). Conclusions: Normal left ventricular size. Moderate concentric left ventricularhypertrophy. Diastolic dysfunction is present. Ejection fraction is measured at 73 %. GlobalLongitudinal Strain is -18 %. GLS is borderline. There is mild enlargement of left atrium. Normal appearance of the mitral valve. Mild mitral valve regurgitation. No evidence of hemodynamically significant aortic stenosis by Doppler.Aortic cusps appear mildly calcified. Trileaflet aortic valve. No aorticregurgitation. Normal appearance of the tricuspid valve. Mild pulmonary hypertensionbased on right ventricular systolic pressure. Estimated peak RVSP is 39 mmHg. Mildtricuspid regurgitation. Normal sinus rhythm. Electronically Signed By: Sherice Causey MD 2022-07-04 13:03:42 CDT CC: CC: us Phan Austin MD CV ECHO PROCEDURES F inal Result documented in this encounter Visit Diagnoses Diagnosis S/P CABG x 3 Postsurgical aortocoronary bypass status Hypertension secondary to other renal disorders documented in this encounter Care Teams Director Of Student Financial Aid Relationship Specialty Start Date End Date Scott Oneill MD PCP - General Internal Medicine 04/27/20 documented as of this encounter
--- OUTSIDE RECORDS SUMMARY | 2024-04-04 01:42 | XMS_ITS | Encounter Summary ---
Author Organization [facility] Address [address] [place] [address] Phone Care Team Providers Care Chief Strategy Officer Name Role Phone Leann Oneill MD Primary Care Provider [phone] Reason for Referral * Procedure (Routine) - Closed Specialty Diagnoses / Procedures Referred By Rocky blancas Referred To Contact Diagnoses Microscopic polyangiitis (HCC) Interstitial lung disease (CMS/HCC) (HCC) Procedures Pulmonary Function Test -[facility] Adult PFT Lab- [facility]; Spirometry, Oxygen Assessment Titration Gemini Goldberg MD [address] [place] [address] Phone: tel: fax: Referral ID Status Reason Start Date Expiration Date Visits Re quested Visits Authorized [id number] Closed 05/22/2023 06/20/2024 1 1 RSER Reason for Visit * Consultation (Routine) - Authorized Specialty Diagnoses / Procedures Referred By Rocky blancas Referred To Contact Pulmonary Disease / Pulmonology Diagnoses Microscopic polyangiitis (HCC) Delaney Padron MD [address] [facility] [address] [place] [address] Phone: tel: fax: Floyd Park MD [address] [place] [address] Phone: tel: fax: Referral ID Status Reason Start Date Expiration Date Visits Requested Visits Authorized [id number] Authorized Specialty Services Required 04/11/2023 05/10/2024 12 12 Encounter Details Date Type Department Care Team (Late st Contact Info) Description 05/22/2023 2:00 PM REVERSER Office Visit [facility] Pulmonary [address] 8th [place] [address] [place] [address] Gemini Goldberg MD [address] [place] [address] Interstitial lung disease (CMS/HCC) (HCC) (Primary Dx); Microscopic polyangiitis (HCC) Social History Tobacco Use [...] on file Legal Sex Male 1:23 AM REVERSER Gender Identity Male 12/24/2023 11:25 AM CDT Sexual Orientation Straight 12/24/2023 11 :25 AM CDT documented as of this encounter Last Filed Vital Signs Vital Sign Reading Time Taken Comments Blood Pressure 155/82 05/22/2023 1:51 PM REVERSER Pulse 60 05/22/2023 1:51 PM REVERSER Temperature 36.7 ??C (98 ??F) 05/22/2023 1:51 PM REVERSER Respiratory Rate 12 05/22/2023 1:51 PM REVERSER Oxygen Saturation 97% 05/22/2023 1:51 PM REVERSER Inhaled Oxygen Concentration - - Weight 103 kg (227 lb) 05/22/2023 1:51 PM REVERSER Height 165.1 cm (5' 5 ) 05/22/2023 1:51 PM REVERSER Body Mass Index 37.77 05/22/2023 1:51 PM REVERSER documented in this encounter Progress Notes * Gemini Goldberg MD - 05/22/2023 12:00 AM CST PATIENT NAME: BRITTON NIELSEN : 1955 ANIA: 05/22/2023 REASON FOR VISIT: Evaluation of interstitial lung disease. HISTORY OF PRESENT ILLNESS: Mr. Nielsen is a 68-year-old man with a history of microscopic polyangiitis, renal limited, diagnosed and treated in 2018, not currently on any therapy, obstructive sleep apnea on CPAP, CAD status post CABG, DVT on Eliquis, prior GI bleed, and neuropathy who presents today for evaluation of interstitial lung disease. The patient has been short of breath since he had his CABG back in 2020, and does not feel he has had any progression of his symptoms since then. He has a cough every morning that is intermittently productive of blood tinged sputum. He says this has been going on for years and again has not progressed recently. It is never alejandra hemoptysis but there are often bloody streaks that come and go depending on the day. The patient has had ILD on CT scans dating back to 2017 and had mild/moderate restriction on PFTs back in 2020. More recently, he had repeat PFTs that demonstrated worsening restriction (TLC 3.53 -> 3.17L), and CT that was concerning for some progression of his ILD. This promptedreferral to our clinic. The patient has a history of microscopic polyangiitis manifest as glomerulonephritis back in 2017. Based on available records, he was treated with Cytoxan, mycophenolate and steroids. He has been offof immunosuppression since 2020 and has been following with nephrology, felt to be in remission. Most recent ANCA was negative in July 2022. Notably, he did have an ER visit for hematuria 6 weeks ago.His Eliquis was held and was told to follow-up with the urology. The plan was for a scope, but he has not had any hematuria since and thus canceled the scope. He has not seen his clinical staff rn since this ED visit. The patient endorses joint pain in his left index finger, shoulders, and hips, but denies prolongedmorning stiffness. As noted above, he had an episode of hematuria about 6 weeks ago. He has since resumed his Eliquis without any further hematuria. He has renal follow-up scheduled next week. He denies any dysphagia or rashes. He does say that his fingertips intermittently turn white, but he does not have any overt Raynaud's. He colton endorses significant myalgias, particularly in his thighs and associated weakness requiring him to sit down at times. The patient is a former smoker, and smoked 1 pack per day for 40 years, quit in 2003. 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 Treated with Cytoxan, prednisone, and Cellcept in 2018. Off all therapy since 2020. Interstitial lung disease. Evaluation in progress but concern that this is related to vasculitis as above. Obstructive sleep apnea on CPAP. CKD 3 in a setting of prior vasculitis. CAD status post CABG in 2020. Hypertension. DVTs, on Eliquis. GI bleed in 2018, status plus embolization. Neuropathy. Anemia, follows with hematology. Former smoker. PAST SURGICAL HISTORY: CABG. 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 MEDICATIONS: Albuterol. Anoro. Eliquis. Aspirin. Atorvastatin. Tums. Vitamin B12. Iron. Lasix. Irbesartan. Labetalol. Protonix. Potassium. Pregabalin. Sodium bicarbonate. Tadalafil. Tramadol. Vitamin D2. ALLERGIES: NO KNOWN DRUG ALLERGIES. SOCIAL HISTORY: The patient is a former smoker. He smoked 1 pack per day for 40 years and quit in 2003. He also smokes marijuana. He denies any other drugs and drinks socially. 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 He is currently retired. FAMILY HISTORY: Negative for any pulmonary or autoimmune disease. REVIEW OF SYSTEMS: Negative except stated in the interval history. PHYSICAL EXAMINATION: Vital Signs: Height 5 feet 5 inches, weight 227 pounds. Blood pressure 155/82, pulse 60, respirations 12, saturating 97% on room air at rest, afebrile. General: Pleasant man in no acute distress. HEENT: Sclerae anicteric. Neck: Supple. Cardiovascular: Regular rate and rhythm. Lungs: Bibasilar crackles are present. Abdomen: Obese, soft, nontender. Extremities: 1+ bilateral lower extremity edema. Skin: No rashes on exposed skin. DATA: PFTs: Date FVC, % pred FEV1, % pred FEV1/FVC TLC DLCO 05/2023 2.60, 72% 2.35, 85% 90% 4.19, 69% 43% 03/2023 (OSH) 2.48, 69% 2.16, 78% 87% 3.17, 53% 50% (adj) 05/2020 (OSH) 2.95, 76% 2.47, 92% 84% 3.53, 63% 70% (adj) This represents a mild restrictive ventilatory defect. ABG 7.38/. Six minute walk: The patient was saturating 96% on room at rest. He was able to walk 900 feet in 6 minutes and at the very end of his walk in the 5th minute did desaturate requiring up titration of oxygen to 2 L to maintain a sat greater than 88%. Heart rate went from 64 to 78. Concluding Brenton score was 2. No change in blood pressure with activity. FEV1 did decrease from 2.35 to [address] scan. This will be reviewed at ILD conference. IMPRESSION AND RECOMMENDATIONS: Mr. Nielsen is a 68-year-old man with a history of microscopic polyangiitis initially manifested as glomerulonephritis back in 2018, treated with Cytoxan, prednisone, and Cellcept, currently off alltherapy, who presents today for evaluation of interstitial lung disease. On history, he does note that he intermittently coughs up blood streaked sputum which is of some concern. His spirometry todayis notable for a mild restrictive ventilatory defect. His CT scan is notable for interstitial lung disease in a probable UIP pattern of fibrosis with scattered ground glass, raising concern for autoimmune associated ILD which may be a manifestation of his vasculitis. I recommend the following: We will obtain full serologic evaluation today including ANH, MEET, RF, CCP, CK, aldolase, MyoMarker, and repeat ANCA. We will review is case at our multidisciplinary ILD conference this coming week. Based on the discussion I will discuss his case with his clinical staff rn as well as Rheumatology here. We plan to see the patient back in 4 months, but we will touch base in the interim once we evaluatehis case, follow-up on his labs, and touch base with his multidisciplinary care team. Addendum: Labs from 05/22/2023 are notable for ANH 1:640, homogeneous, positive MEET with negative subests. Indeterminate ANCA with MPO of 1.2. Negative RF and CCP. Negative myomarker panel. CK 176, aldolase 8.1. Case reviewed at ILD conference. CT from 03/2023 is notable for fibrosis that was felt to represent a probable UIP pattern, which has been present on prior CT A/Ps. There is superimposed ground glass that waxes and wanes on prior CTs. As compared to 01/2023, CT findings are unchanged. As compared to06/2019, the findings have progressed. 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 For his pulmonary disease, I recommend initiation of CellCept. Discussed case with Dr. Brice of nephrology. No clear evidence of active nephritis at this time. Will await formal review by Rheumatology and work with multidisciplinary team to finalize treatment plan. Gemini Goldberg M.D. Household Personal Assistantfirm administrator MM/ cc: MOLLY DAS MD [address] [place] [address] / LEANN ONEILL MD [facility] [place] [address] / DELANEY PADRON M.D. [facility] [address] [place] [address] / documented in this encounter Plan of Treatment Not on file documented as of this encounter Results * Pulmonary Function Test - (08/01/2023 12:45 PM CDT) FVC PRE 2.54 L [facility] FVC %PRE PRED 71 % [facility] FEV1 PRE 2.23 L [facility] FEV1 %PRE PRED 81 % [facility] FEV1/FVC PRE 87.7 % [facility] Anatomical Region Laterality Modality PFT 08/01/2023 12:2 [...] and %HbO2 is age dependent. However, the [facility] Pulmonary Function Laboratory defines hypoxemia as a PO2 <55 or a %HbO2 <89. Narrative 08/04/2023 1:47 PM CDT Table formatting from the original result was not included. [facility] Division of Pulmonary & Critical Care Medicine [address] [place] [address]; [facility]; [place], [place] [address]; [phone] Pulmonary Function Laboratory Pulmonary Stress Test Simple/Oxygen [...] Work [distance (m) x body wt (kg)]: 36937 kg.m (normal >60,000kg.m) Oxygen required to maintain [...] with the written final report. PFT performed at:->[facility] Adult PFT Lab- [facility]-8D Procedure:->Spirometry Procedure:->Oxygen Assessment Titration Pulmonary Function Test Interpretation SPIROMETRY: The FEV-I and FVC are reduced in a pattern suggestive of a restrictive abnormality. FLOW VOLUME LOOPS: The inspiratory loop is appropriate for the expiratory flow abnormality. Gemini Goldberg MD PFT ORDERABLES Final Res ult * (ABNORMAL) Anti-Neutrophilic Cytoplasmic Antibody (ANCA) with Reflex to MPO and PR3 Abs (43:08 PM REVERSER) ANCA Indetermi tran(A) Negative [facility] Comment:Indeterminate for P- ANCA - Results by antigen specific immunoassay (MPO & PR3) to follow. May indicate ulcerative colitis or Crohn's disease. Blood 05/22/2023 3:08 PM REVERSER 05/22/2023 3:57 PM REVERSER Gemini Goldberg MD LAB BLOOD ORDERABLES Devorah l Result [facility] Department [place] [address] * Myomarker panel 3 (05/22/2023 3:08 PM REVERSER) Anti-Marisabel-1 ab <20 <20 Units [facility] Anti PL-7 ab Negative Negative [facility] Comment: This test was developed and its performance characteristics determined by [facility]. It has not been cleared or approved by the Food and Drug Administration. Anti PL-12 ab Negative Negative [facility] Comment: This test was developed and its performance characteristics determined by [facility]. It has not been cleared or approved by the Food and Drug Administration. Anti EJ ab Negative Negative [facility] Comment: This test was developed and its performance characteristics determined by [facility]. It has not been cleared or approved by the Food and Drug Administration. Anti OJ ab Negative Negative [facility] Comment: This test was developed and its performance characteristics determined by [facility]. It has not been cleared or approved by the Food and Drug Administration. Anti SRP ab Negative Negative [facility] Comment: This test was developed and its performance characteristics determined by [facility]. It has not been cleared or approved by the Food and Drug Administration. Anti Mi-2 ab Negative Negative [facility] Comment: This test was developed and its performance characteristics determined by [facility]. It has not been cleared or approved by the Food and Drug Administration. Polymyositis PM-SCL ab <20 <20 Units [facility] Comment: This test was developed and its performance characteristics determined by [facility]. It has not been cleared or approved by the Food and Drug Administration. Fibrillarin U3 ab Negative Negative [facility] Comment: This test was developed and its performance characteristics determined by [facility]. It has not been cleared or approved by the Food and Drug Administration. ?Interpretation for Anti-Marisabel-1, Kixl-NVQ-5xsngn, ?Anti-MDA-5, Anti-NXP-2, Anti-PM/Scl-100, ?Anti-SS-A 52 kD, Anti-U1 NURSE NAVIGATOR: ?Negative: ?<20 ?Weak Positive: ? 20 - 39 ?Moderate Positive: ? 40 - 80 ?Strong Positive: ? >80 ?. Test Performed by: [facility] [address] [place] [address] Anti U2 SN NURSE NAVIGATOR ab Negative Negative [facility] Comment: This test was developed and its performance characteristics determined by [facility]. It has not been cleared or approved by the Food and Drug Administration. Anti U1RNP ab <20 <20 Units [facility] Anti KU ab Negative Negative [facility] Comment: This test was developed and its performance characteristics determined by [facility]. It has not been cleared or approved by the Food and Drug Administration. P155/140 ab <20 <20 Units [facility] Comment: This test was developed and its performance characteristics determined by [facility]. It has not been cleared or approved by the Food and Drug Administration. MDA-5 P140 ab <20 <20 Units [facility] Comment: This test was developed and its performance characteristics determined by [facility]. It has not been cleared or approved by the Food and Drug Administration. NXP-2 P140 ab <20 <20 Units [facility] Comment: This test was developed and its performance characteristics determined by [facility]. It has not been cleared or approved by the Food and Drug Administration. SSA52 KD ab IgG <20 <20 Units [facility] Comment: This test was developed and its performance characteristics determined by [facility]. It has not been cleared or approved by the Food and Drug Administration. Blood 05/22/2023 3:08 PM REVERSER 05/22/2023 8:13 PM REVERSER us Gemini Goldberg MD LAB BLOOD ORDERABLES Devorah l Result Performing Organization Address City/[facility]/ZIP Co de Phone Number [facility] Department [place] [address] [facility] * (ABNORMAL) Aldolase (05/22/2023 3:08 PM REVERSER) Aldolase 8.1(H) 0.1 - 8.0 Units/L [facility] Blood 05/22/2023 3:08 PM REVERSER 05/22/2023 3:57 PM REVERSER Gemini Goldberg MD LAB BLOOD ORDERABLES Devorah l Result Performing Organization Address [facility] Co de Phone Number [facility] [place] [address] * Creatine kinase (CK), total (05/22/2023 3:08 PM REVERSER) Pathologist [facility] CK 176 40 - 300 Units/L [facility] Blood 05/22/2023 3:08 PM REVERSER 05/22/2023 3:57 PM REVERSER Result [facility] Gemini Goldberg MD LAB BLOOD ORDERABLES Devorah l Result Performing Organization Address [facility] Co de Phone Number [facility] Department [place] [address] * Cyclic citrul peptide antibody, IgG (05/22/2023 3:08 PM REVERSER) CCP Ab <0.5 <=2.9 units/mL [facility] Comment: Interpretive data Negative: <3 units/mL Positive: > or equal to 3 units/mL Current interpretive data was last revised on 2016. Blood 05/22/2023 3:08 PM REVERSER 05/22/2023 3:57 PM REVERSER Gemini Goldberg MD LAB BLOOD ORDERABLES Devorah l Result Performing Organization Address City/[facility] Co de Phone Number [facility] [place] [address] * Rheumatoid factor (05/22/2023 3:08 PM REVERSER) Pathologist [facility] Rheumatoid factor, quant <10.0 0.1 - 15.0 IUnits/mL [facility] Blood 05/22/2023 3:08 PM REVERSER 05/22/2023 3:57 PM REVERSER Result [facility] Gemini Goldberg MD LAB BLOOD ORDERABLES Devorah l Result Performing Organization Address [facility] Co de Phone Number [facility] [place] [address] * (ABNORMAL) MEET ab eval w/reflex (05/22/2023 3:08 PM REVERSER) [facility] MEET ab Positive( A) Negative [facility] Comment: Interpretive Data Positive Screens will be reflexed to specific testing for Antibodies against the following antigens: Marisabel-1 Ab, NURSE NAVIGATOR Ab, Scl-70 Ab, Hope Ab, SS-A/Ro Ab, and SS- B/La Ab. Further testing for dsDNA, Centromere, or Ribosomal P antibodies is suggested in patient with a positive screen and negative specific antibodies. Current interpretive data was last revised on 2022. Blood 05/22/2023 3:08 PM REVERSER 05/22/2023 3:57 PM REVERSER Result [facility] Gemini Goldberg MD LAB BLOOD ORDERABLES Devorah l Result Performing Organization Address [facility] Co de Phone Number [facility] [place] [address] * ANH ab ql w/rflx to ANH qn (05/22/2023 3:08 PM REVERSER) [facility] ANH Positive 1:640 [facility] Comment: Interpretive Data Normal range for ANH [...] revised on 2019. ANH, quant 1:640 titer [facility] ANH, interp Homogeneous [facility] Blood 05/22/2023 3:08 PM REVERSER 05/22/2023 3:57 PM REVERSER us Gemini Goldberg MD LAB BLOOD ORDERABLES Devorah rich Result [facility] Department [place] [address] documented in this encounter Visit Diagnoses Diagnosis Interstitial lung disease (CMS/HCC) (HCC)- Primary Postinflammatory pulmonary fibrosis Microscopic polyangiitis (HCC) Polyarteritis nodosa Microscopic polyangiitis (HCC) Polyarteritis nodosa Interstitial lung disease (CMS/HCC) (HCC) Postinflammatory pulmonary fibrosis documented in this encounter Historical Medications * This list may reflect changes made after this encounter. traMADoL (ULTRAM) 50 mg tablet Take 1 tablet (50 mg total) by mouth every 6 (six) hours as needed for pain calcium carbonate (TUMS) 500 mg (200 mg elemental calcium) chewable tablet Take 1 tablet/chew tab (500 mg total) by mouth ferrous sulfate 325 mg (65 mg of elemental iron) tablet Take 1 tablet (325 mg total) by mouth daily 05/02/2023 sodium bicarbonate 650 mg tablet Take 1 tablet (650 mg total) by mouth 2 (two) times a day cyanocobalamin (Vitamin B-12) 1,000 mcg tabletIndications :Prevention of Vitamin B12 Deficiency Take 1 tablet (1,000 mcg total) by mouth daily calcium carbonate-vitamin D3 1500 mg (600 mg elemental) -200 units per tablet Take 1 tablet by mouth daily pantoprazole DR (PROTONIX) 40 mg EC tablet Take 1 tablet (40 mg total) by mouth every morning 03/02/2023 4 irbesartan (AVAPRO) 150 mg tablet Take 1 tablet (150 mg total) by mouth nightly 4 Anoro Ellipta 62.5-25 mcg/actuation blister with device 1 puff daily 03/26/2023 4 albuterol HFA (PROVENTIL HFA,VENTOLIN HFA,PROAIR HFA) 90 mcg/actuation inhaler INHALE 2 PUFFS BY MOUTH EVERY 4 HOURS NEEDED FOR SHORTNESS OF BREATH FOR WHEEZING 03/26/2023 4 added in this encounter Orders Outpatient Referral Count Last Ordered Date Fir st Ordered Date AMB REFERRAL TO PULMONOLOGY 1 05/22/2023 documented in this encounter Care Teams Chief Strategy Officer Relationship Specialty Start Date End Date Leann Oneill MD PCP - General Internal Medicine 04/27/20 documented as of this encounter
--- OUTSIDE RECORDS SUMMARY | 2024-04-04 01:42 | XMS_ITS | Encounter Summary ---
Author Organization [facility] Address [address] [place] [address] Care Team Providers Care Chemical Compounder Helper Name Role Phone Scott Oneill MD Primary Care Provider [phone] Reason for Visit * Reason Onset Date Comments Reschedule 01/28/2022 Encounter Details Date Type Department Care Team (Late st Contact Info) Description 01/28/2022 Telephone [facility] Cardiology [address] [place] [address] Umm Jenkins MA Reschedule Social History Tobacco Use Types Packs/Day Years [...] on file Legal Sex Male 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 We need to r/s appt bc JF is not longer seeing pt's on mornings. documented in this encounter Plan of Treatment Not on file documented as of this encounter Visit Diagnoses Not on filedocumented in this encounter Care Teams Chemical Compounder Helper Relationship Specialty Start Date End Date Scott Oneill MD PCP - General Internal Medicine 04/27/20 documented as of this encounter
--- OUTSIDE RECORDS SUMMARY | 2024-04-04 01:42 | XMS_ITS | Encounter Summary ---
Author Organization [facility] es Address [address] [place] [address] Phone Care Team Providers Care Control Board Operator Name Role Phone Scott Oneill MD Primary Care Provider [phone] Reason for Visit * Auth/Cert Specialty Diagnoses / Procedures Referred By Contac t Referred To Contact Referral ID Status Reason Start Date Expiration Date Visits Re quested Visits Authorized [id number] 1 1 Encounter Details Date Type Department Care Team (Late st Contact Info) Description 08/28/2020 Home Care Visit [facility] Home Health - [address] [place] [id number] Debbie Crane RN TRAVEL SCREENING CASE COMMUNICATION Social History [...] on file Legal Sex Male 1:23 AM PUBLIC RELATIONS CONSULTANT Gender Identity Male 12/24/2023 11:25 AM CDT Sexual Orientation Straight 12/24/2023 11 :25 AM CDT documented as of this encounter Plan of Treatment Not on file documented as of this encounter Visit Diagnoses Not on filedocumented in this encounter Care Teams Control Board Operator Relationship Specialty Start Date End Date Scott Oneill MD PCP - General Internal Medicine 04/27/20 documented as of this encounter
--- OUTSIDE RECORDS SUMMARY | 2024-04-04 01:42 | XMS_ITS | Encounter Summary ---
Author Organization [facility] Healthcare Address [address] [place] [address] Care Team Providers Care Busgirl Name Role Phone Scott Oneill MD Primary Care Provider [phone] Encounter Details Date Type Department Care Team (Latest Contact Info) Description 05/22/2023 9:40 PM TICKET PRINTER AND TAGGER - 05/22/2023 11:59 PM TICKET PRINTER AND TAGGER Hospital Encounter [facility] [address] [place] [id number] Discharge Disposition: Discharge to home or self [...] file Legal Sex Male 1:23 AM TICKET PRINTER AND TAGGER Gender Identity Male 12/24/2023 11:25 AM CDT [...] BODY OUTSIDE REFERENCE Routine 05/22/2023 9:40 PM TICKET PRINTER AND TAGGER documented in this encounter Results * CT Body Outside Reference (05/22/2023 9:40 PM TICKET PRINTER AND TAGGER) Impressions [facility] - 05/22/2023 9:40 PM TICKET PRINTER AND TAGGER These images are for Reference purposes only and have not been reviewed by [facility]. ??There will be no report generated by a [facility] Radiologist. Narrative [facility] - 05/22/2023 9:40 PM TICKET PRINTER AND TAGGER EXAMINATION: ??Images For Reference Purposes Only us Marce Bernal MD IMG CT PROCEDURES Final Resu lt [facility] documented in this encounter Visit Diagnoses Not on filedocumented in this encounter Care Teams Busgirl Relationship Specialty Start Date End Date Scott Oneill MD PCP - General Internal Medicine 04/27/20 documented as of this encounter
--- OUTSIDE RECORDS SUMMARY | 2024-04-04 01:42 | XMS_ITS | Encounter Summary ---
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 Procedures Transthoracic Echo (TTE) Complete W Doppler/CF Phan Austin MD [address] [address] Phone: tel: fax: [facility] Referral ID Status Reason Start Date Expiration Date Visits Re quested Visits Authorized [id number] Closed 04/29/2022 05/29/2023 1 1 R PRESS SUPERVISOR Encounter Details Date Type Department Care Team (Late st Contact Info) Description 04/29/2022 10:00 AM POWER PRESS SUPERVISOR Office Visit [facility] [address] [place] [id number] Phan Austin MD [address] [address] Lipid screening (Primary Dx); S/P CABG x 3; Family history of early CAD; Mixed hyperlipidemia; Hypertension secondary to other renal disorders; Chronic deep vein thrombosis (DVT) of proximal vein of lower extremity, unspecified laterality (HCC); Stage 3b chronic kidney disease (HCC); Morbid (severe) obesity due to [...] on file Legal Sex Male 1:23 AM POWER PRESS SUPERVISOR Gender Identity Male 12/24/2023 11:25 AM CDT Sexual Orientation Straight 12/24/2023 11 :25 AM CDT documented as of this encounter Last Filed Vital Signs Vital Sign Reading Time Taken Comments Blood Pressure 144/70 04/29/2022 9:56 AM POWER PRESS SUPERVISOR Pulse 74 04/29/2022 9:56 AM POWER PRESS SUPERVISOR Temperature - - Respiratory Rate - - Oxygen Saturation 97% 04/29/2022 9:56 AM POWER PRESS SUPERVISOR Inhaled Oxygen Concentration - - Weight 96.6 kg (213 lb) 04/29/2022 9:56 AM POWER PRESS SUPERVISOR Height 165.1 cm (5' 5 ) 04/29/2022 9:56 AM POWER PRESS SUPERVISOR Body Mass Index 35.45 04/29/2022 9:56 AM POWER PRESS SUPERVISOR documented in this encounter Progress Notes * Phan Austin MD - 04/29/2022 10:00 AM CST [facility] DATE OF VISIT: 04/29/2022 CHIEF COMPLAINT No chief complaint on file. JOSE Nielsen is a 67 y.o. male with complicated past medical history including glomerular nephritis, with GFR 30, long history of tobacco use and quit 8 years ago, obesity, DVT on Eliquis 2016, hypertension, hyperlipidemia, history of significant GI bleeding 2018 and went to [facility] and underwent Embolization of the posterior [...] ago. He underwent Lexiscan stress test at [facility] that was normal with no perfusion defect. [...] three-vessel disease. He was referred to [facility] and underwent CABGx3 by Dr. Cordero with BURNS to LAD, SVG to ramus and SVG to RCA. Left radial artery was harvested but was too small to be used. He did well postoperatively and he is here for follow-up. It has lucian e pain around the incision site, fatigability. He is very happy with medical care at [facility]. He denies lower limb edema, dizziness, syncope. [...] He stated that he was hospitalized around [place] time for pneumonia. He continues to follow-up with Nephrology with Dr. Barnard who at 1 point discontinued the labetalol and started him on lisinopril but patient developed cough and patient went back to labetalol 100 mg daily. He also underwent colonoscopy with removal of 12 polyps. 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 MEDICAL HISTORY Past Medical History: Diagnosis Date Arthritis Coronary artery disease DVT (deep venous thrombosis) ([facility]/HCC) ([facility]) History of transfusion Hyperlipidemia Hypertension [...] apixaban (ELIQUIS) 5 mg tablet atorvastatin (LIPITOR) 20 mg tablet furosemide (LASIX) 40 mg tablet labetaloL (NORMODYNE,TRANDATE) 200 mg tablet potassium chloride ER 20 mEq CR tablet tadalafiL (CIALIS) 20 mg tablet Vitamin D2 1,250 mcg (50,000 unit) capsule aspirin 81 mg enteric coated tablet gabapentin (NEURONTIN) 300 mg capsule lisinopriL (PRINIVIL,ZESTRIL) 20 mg tablet traMADoL (ULTRAM) 50 mg tablet ALLERGIES No Known Allergies REVIEW [...] allergies and hives. PHYSICAL EXAM Vitals BP 144/70 (BP Location: Left arm, Patient Position: Sitting) Pulse 74 Ht 165.1 cm (5' 5 ) Wt 96.6 kg (213 lb) SpO2 97% BMI 35.45 kg/m?? Body mass index is 35.45 kg/m??. Physical Exam Constitutional: Appearance: He is [...] Chemistry Component Value Date/Time SODIUM 141 07/18/2020 012 POTASSIUM 4.3 07/18/2020 012 CHLORIDE 108 07/18/2020 012 CO2 24 07/18/2020 012 BUNSER 37 (H) 07/18/2020 012 CREATININE 2.00 (H) 07/18/2020 012 GLUCOSE 112 07/18/2020 012 Component Value Date/Time CALCIUM 8.7 07/18/2020 0121 ALKPHOS 87 06/08/2020 1832 AST 14 06/08/2020 1832 ALT 14 06/08/2020 1832 BILITOT 0.6 06/08/2020 1832 EKG2-sinus bradycardia Lexiscan stress test March [address] Negative for ischemia. Ejection fraction 63% Cardiac catheterization May 2020-at [facility]. High-grade stenosis involving ostial ramus, ostial left circumflex artery and RCA. The LAD in the cranial view 90% ostial E. Distal left main 50% ASSESSMENT Diagnoses and all orders for this visit: Lipid screening (Primary) - POCT lipid panel S/P CABG x 3 - Transthoracic Echo (TTE) Complete W Doppler/CF; Future Family history of early CAD Mixed hyperlipidemia Hypertension secondary to other renal disorders - Transthoracic Echo (TTE) Complete W Doppler/CF; Future Chronic deep vein thrombosis (DVT) of proximal vein of lower extremity, unspecified laterality (HCC) Stage 3b chronic kidney disease (HCC) Morbid (severe) obesity due to excess calories (HCC) PLAN/RECOMMENDATIONS -patient status post CABG x3 [address] Cordero. Chest wall healed well. To the side of the left lower chest and when he coughs there is some bulging. Continue aspirin and Eliquis. I confirmed with that he is safe to take an aspirin 81 mg daily. Has been 2 years since patient had an echocardiogram. Check an echocardiogram. -regards to history of DVT, continue Eliquis. -regards to hypertension, blood pressure running on the higher side today 144/70. Increase labetalol from 100 mg daily to 100 mg b.i.d. keep blood pressure diary. In regards to stage 3 kidney disease it seems that the patient has glomerular nephritis and followswith Nephrology. His kidney function remained stable after the bypass surgery. - in regards to hyperlipidemia, continue statin. Lipid panel done today April 29, 2022 shows LDL 68, HDL 38 and triglycerides 116. Continue Lipitor 20 mg daily. -regards to history of obstructive sleep apnea, continue CPAP. - Follow up in the office in 9 months. Phan Austin MD R PRESS SUPERVISOR documented in this encounter Plan of Treatment Not on file documented as of this encounter Procedures Procedure Name Priority Date/Time Associated Diagnosis Comments POCT LIPID PANEL Routine 04/29/2022 10:0 1 AM POWER PRESS SUPERVISOR Lipid screening documented in this encounter Results * TRANSTHORACIC ECHO (TTE) COMPLETE W DOPPLER/CF WO CONTRAST (07/04/2022 10:28 AM CDT) Anatomical Region Laterality Modality Ultrasound 07/04/2022 10:0 2 AM CDT Narrative 07/04/2022 1:03 PM CDT [facility] Cardiology [address], [place] [address], [place] [address] P:[phone] P:[phone] Echocardiographic Report Patient Name: BRITTON NIELSEN : 1955 Study Date: 07/04/2022 10:02:56 AM Gender: M Tech: Location: [place] Ref.Provider: PHAN AUSTIN Height(Cm): 165 BSA: 2.1 [...] Findings: Interpretation Site: Exam was interpreted at [facility]. Left Ventricle: Normal left ventricular size. [...] Procedure Note Vito Causey MD - 07/04/2022 [facility] Cardiology [address], [place] [id number], [place] [address] P:[phone] P:[phone] Echocardiographic Report Patient Name: BRITTON NIELSENPatient ID: [id number] : [id number] Date: 07/04/2022 10:02:56 AM Gender: Nickcession #: [id number] Tech: SWLocation: [place] Ref.Provider: PHILIP AUSTINRHeight(Cm): 165 BSA: 2.1Weight(Kg): 96.6 Heart Rate: 58BP: [...] Findings: Interpretation Site: Exam was interpreted at [facility]. Left Ventricle: Normal left ventricular size. [...] Causey MD 2022-07-04 13:03:42 CDT CC: CC: Phan Austin MD CV ECHO PROCEDURES F inal Result * POCT lipid panel (04/29/2022 10:01 AM POWER PRESS SUPERVISOR) Cholesterol, POC 129 mg/dL HDL, POC 38 mg/dL Triglycerides, POC 116 mg/dL LDL Cholesterol POC 68 mg/dL Chol/HDL Ratio, POC 1.8 Non-HDL Cholesterol, POC 91 mg/dL Cholesterol Total, POC 129 mg/dL Capillary blood 04/29/2022 1 0:01 AM POWER PRESS SUPERVISOR us Phan Austin MD POINT OF CARE TEST O RDERABLES Final Result documented in this encounter Visit Diagnoses Diagnosis Lipid screening- Primary Screening for lipoid disorders S/P CABG x 3 Postsurgical aortocoronary bypass status Family history of early CAD Family history of ischemic heart disease Mixed hyperlipidemia Hypertension secondary to other renal disorders Chronic deep vein thrombosis (DVT) of proximal vein of lower extremity, unspecified laterality (HCC) Stage 3b chronic kidney disease (HCC) Morbid (severe) obesity due to excess calories (HCC) 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 rx [id number] QTY 29 [facility] Indications: neuropathic pain, pain 06/09/2020 04/29/2022 documented as of this encounter Care Teams Carbonating Stone Cleaner Relationship Specialty Start Date End Date Scott Oneill MD PCP - General Internal Medicine 04/27/20 documented as of this encounter
--- OUTSIDE RECORDS SUMMARY | 2024-04-04 01:42 | XMS_ITS | Encounter Summary ---
Author Organization [facility] Address [address] [place] [address] Care Team Providers Care Rn Cardiac Name Role Phone Scott Oneill MD Primary Care Provider [phone] Reason for Visit * Reason Comments Follow-up Chest pushes out whe n coughing S/P CABG Encounter Details Date Type Department Care Team (Late st Contact Info) Description 07/02/2021 10:00 AM CDT Office Visit [facility] Cardiology [address] [place] [address] Kathrin Austin MD [address] [address] S/P CABG x 3 (Primary Dx); Mixed hyperlipidemia; Hypertension secondary to other renal disorders; Family history of early CAD; Chronic deep vein thrombosis (DVT) of proximal vein of lower extremity, unspecified laterality (HCC); Stage 3b chronic kidney disease (HCC); BMI 35.0-35.9,adult Social History Tobacco Use Types Packs/Day Years [...] on file 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 Gender Identity Male 12/24/2023 11:25 AM CDT Sexual Orientation Straight 12/24/2023 11 :25 AM CDT documented as of this encounter Last Filed Vital Signs Vital Sign Reading Time Taken Comments Blood Pressure 132/70 07/02/2021 9:56 AM CDT Pulse 73 07/02/2021 9:56 AM CDT Temperature - - Respiratory Rate - - Oxygen Saturation 98% 07/02/2021 9:56 AM CDT Inhaled Oxygen Concentration - - Weight 96.8 kg (213 lb 6.4 oz) 07/02/2021 9:56 A M CDT Height 165.1 cm (5' 5 ) 07/02/2021 9:56 AM CDT Body Mass Index 35.51 07/02/2021 9:56 AM CDT documented in this encounter Progress Notes * Kathrin Austin MD - 07/02/2021 10:00 AM CDT [facility] DATE OF VISIT: 07/02/2021 CHIEF COMPLAINT Chief Complaint Patient presents with ??? Follow-up Chest pushes out when coughing ??? S/P CABG HPI Britton Nielsen is a 66 y.o. male with complicated past medical history including glomerular nephritis, with GFR 30, long history of tobacco use and quit 8 years ago, obesity, DVT on Eliquis 2016, hypertension, hyperlipidemia, history of significant GI bleeding 2018 and went to [facility] and underwent Embolization of the [...] ago. He underwent Lexiscan stress test at [facility] that was normal with no perfusion [...] significant three-vessel disease. He was referred to [facility] and underwent CABGx3 by Dr. Cordero with BURNS to LAD, SVG to ramus and SVG to RCA. Left radial artery was harvested but was too small to be used. He did well postoperatively and he is here for follow-up. It has so me pain around the incision site, fatigability. He is very happy with medical care at [facility]. He denies lower limb edema, dizziness, syncope. [...] on something and fell. Denies dizziness or syncope MEDICAL HISTORY Past Medical History: Diagnosis Date ??? Arthritis ??? Coronary artery disease ??? DVT (deep venous thrombosis) (CMS/HCC) (HCC) ??? History of transfusion ??? Hyperlipidemia ??? Hypertension ??? Overweight ??? Renal failure ??? Skin cancer ??? Sleep apnea Past Surgical History: Procedure Laterality Date ??? CARDIAC CATHETERIZATION 06/08/2020 ??? CORONARY ARTERY BYPASS GRAFT 06/12/2020 CABG X3 ??? NO PAST SURGERIES Social History Tobacco Use ??? Smoking status: Former Smoker ??? Smokeless tobacco: Never Used Substance Use Topics ??? Alcohol use: Yes [...] mg tablet labetaloL (NORMODYNE,TRANDATE) 200 mg tablet lisinopriL (PRINIVIL,ZESTRIL) 20 mg tablet potassium chloride ER 20 mEq CR tablet tadalafiL (CIALIS) 20 mg tablet traMADoL (ULTRAM) 50 mg tablet Vitamin D2 1,250 mcg (50,000 unit) capsule gabapentin (NEURONTIN) 300 mg capsule ALLERGIES No Known Allergies REVIEW OF SYSTEMS Review of Systems Constitutional: Positive for malaise/fatigue and weight loss. Negative for chills and fever. HENT: Positive for hearing loss. Negative for congestion and sore throat. Eyes: Negative for blurred vision and double vision. Cardiovascular: Positive for dyspnea on exertion. Negative for chest pain, claudication, leg swelling, near-syncope, orthopnea, palpitations, paroxysmal [...] allergies and hives. PHYSICAL EXAM Vitals BP 132/70 (BP Location: Right arm, Patient Position: Sitting) Pulse 73 Ht 165.1 cm (5' 5 ) Wt 96.8 kg (213 lb 6.4 oz) SpO2 98% BMI 35.51 kg/m?? Body mass index is 35.51 kg/m??. Physical Exam Constitutional: Appearance: He is [...] Date/Time SODIUM 141 07/18/2020 012 POTASSIUM 4.3 07/18/2020120 CHLORIDE 108 07/18/2020120 CO2 24 07/18/2020 012 BUNSER 37 (H) 07/18/2020 012 CREATININE 2.00 (H) 07/18/2020 0121 GLUCOSE 112 07/18/2020 0121 Component Value Date/Time CALCIUM 8.7 07/18/2020 012 ALKPHOS 87 06/08/2020 183 AST 14 06/08/2020 183 ALT 14 06/08/2020 183 BILITOT 0.6 06/08/2020 183 EKG2-sinus bradycardia Lexiscan stress test March [address] Negative for ischemia. Ejection fraction 63% Cardiac catheterization May 2020-at [facility]. High-grade stenosis involving ostial ramus, [...] 3b chronic kidney disease (HCC) BMI 35.0-35.9,adult PLAN/RECOMMENDATIONS -patient status post CABG x3. Chest wall healed well. To the side of the left lower chest and when he coughs there is some bulging. Continue aspirin and Eliquis. I confirmed with that he is safe to take an aspirin 81 mg daily. -regards to hypertension, blood pressure is controlled. Blood pressure today 130/70 Continue current medications. In regards to stage 3 kidney disease it seems that the patient has glomerular nephritis and followswith Nephrology. His kidney function remained stable after the bypass surgery. - in regards to hyperlipidemia, continue statin. Lipid panel today July 02, 2021 LDL 96, HDL 34 andtriglycerides 129 and total cholesterol 156 -in regards to body mass index of 35, he lost 18 lb compared to last visit by cutting down calorie intake. Encourage the patient to continue losing weight. Follow up in the office in 9 months Kathrin Austin MD documented in this encounter Miscellaneous Notes * Addendum Note - Michael Jenkins MA - 07/02/2021 10:00 AM CDTAddended by: MICHAEL JENKINS on: 07/02/2021 11:28 AM Modules accepted: Orders documented in this encounter Plan of Treatment Not on file documented as of this encounter Procedures Procedure Name Priority Date/Time Associated Diagnosis Comments POCT LIPID PANEL Routine 07/02/2021 11:2 7 AM CDT Mixed hyperlipidemia documented in this encounter Results * POCT lipid panel (07/02/2021 11:27 AM CDT) Cholesterol, POC 156 mg/dL Comment:GLU = 87 HDL, POC 34 mg/dL Triglycerides, POC 129 mg/dL LDL Cholesterol POC 96 mg/dL Chol/HDL Ratio, POC 4.6 Non-HDL Cholesterol, POC 122 mg/dL Cholesterol Total, POC 156 mg/dL Capillary blood 07/02/2021 1 1:27 AM CDT Kathrin Austin MD POINT OF CARE TEST [...] 3b chronic kidney disease (HCC) BMI 35.0-35.9,adult documented in this encounter Historical Medications * This list may reflect changes made after this encounter. tadalafiL (CIALIS) 20 mg tablet Take by mouth daily as needed 05/19/2021 lisinopriL (PRINIVIL,ZESTRIL ) 20 mg tablet Take 20 mg by mouth daily 04/28/2021 04/29/2022 added in this encounter Care Teams Rn Cardiac Relationship Specialty Start Date End Date Scott Oneill MD PCP - General Internal Medicine 04/27/20 documented as of this encounter
--- OUTSIDE RECORDS SUMMARY | 2024-04-04 01:43 | XMS_ITS | Encounter Summary ---
Author Organization [facility] Address [address] [place] [address] Care Team Providers Care Social Science Teacher Name Role Phone Scott Oneill MD Primary Care Provider [phone] Reason for Visit * Reason Comments Wound Check Encounter Details Date Type Department Care Team (Late st Contact Info) Description 08/01/2020 12:45 PM CDT Office Visit Cardiovascular and Thoracic Surgery [address] [place] [address] Hernan Cordero MD [address] [place] [address] S/P CABG x 3 (Primary Dx) Social History Tobacco Use Types [...] on file 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 Gender Identity Male 12/24/2023 11:25 AM CDT Sexual Orientation Straight 12/24/2023 11 :25 AM CDT documented as of this encounter Last Filed Vital Signs Vital Sign Reading Time Taken Comments Blood Pressure 136/88 08/01/2020 12:53 PM CDT Pulse 68 08/01/2020 12:53 PM CDT Regu lar Temperature - - Respiratory Rate 18 08/01/2020 12:53 PM CDT Oxygen Saturation - - Inhaled Oxygen Concentration - - Weight - - Height - - Body Mass Index - - documented in this encounter Patient Instructions * Patient Instructions* Sheldon Giraldo RN - 08/01/2020 12:45 PM CDT Today we have discontinued your wound vac therapy. Today we have placed a wet to dry dressing. You will perform a daily dressing change. Your [facility] nurse will order supplies for your wound care tomorrow. We will see you in 2 weeks for a wound check 08/15 at 1:00 pm documented in this encounter Progress Notes * Hernan Cordero MD - 08/01/2020 12:45 PM CDT Upper sternal wound is granulating in very nicely, no purulence, no need for further wound VAC therapy, will switch to local wound care with Med[employer] wound gel, see again in 2 weeks. documented in this encounter Plan of Treatment Not on file documented as of this encounter Visit Diagnoses Diagnosis S/P CABG x 3- Primary Postsurgical aortocoronary bypass status documented in this encounter Care Teams Social Science Teacher Relationship Specialty Start Date End Date Scott Oneill MD PCP - General Internal Medicine 04/27/20 documented as of this encounter
--- OUTSIDE RECORDS SUMMARY | 2024-04-04 01:43 | XMS_ITS | Encounter Summary ---
Author Organization [facility] Address [address] [place] [address] Phone Care Team Providers Care Senior Procurement Specialist Name Role Phone Scott Oneill MD Primary Care Provider [phone]- [phone] Reason for Visit * Auth/Cert Specialty Diagnoses / Procedures Referred By Contac t Referred To Contact Referral ID Status Reason Start Date Expiration Date Visits Re quested Visits Authorized [id number] 1 1 Encounter Details Date Type Department Care Team (Late st Contact Info) Description 07/26/2020 Home Care Visit [facility] Home Health - [address] [place] [id number] Rocío Ramírez RN TRAVEL SCREENING CASE COMMUNICATION Social History [...] on file 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
--- OUTSIDE RECORDS SUMMARY | 2024-04-04 01:43 | XMS_ITS | Encounter Summary ---
Author Organization [facility] Home Care Servic es Address [address] [place] [address] Phone Care Team Providers Care Tape Recorder Mechanic Name Role Phone Scott Oneill MD Primary Care Provider [phone]- [phone] Reason for Visit * Auth/Cert Specialty Diagnoses / Procedures Referred By Rocky t Referred To Contact Referral ID Status Reason Start Date Expiration Date Visits Re quested Visits Authorized [id number] 1 1 Encounter Details Date Type Department Care Team (Late st Contact Info) Description 08/23/2020 12:15 PM CDT Home Care Visit [facility] [address] [address] [address] [place] [address] Georgina Hassan RN SN HOME VISIT Social History Tobacco [...] on file 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 Gender Identity Male 12/24/2023 11:25 AM CDT Sexual Orientation Straight 12/24/2023 11 :25 AM CDT documented as of this encounter Last Filed Vital Signs Vital Sign Reading Time Taken Comments Blood Pressure 142/70 08/23/2020 12:40 PM CDT Pulse 72 08/23/2020 12:40 PM CDT Temperature 36.7 ??C (98 ??F) 08/23/2020 12:40 PM CDT Respiratory Rate 18 08/23/2020 12:40 PM CDT Oxygen Saturation 98% 08/23/2020 12:40 PM CDT Inhaled Oxygen Concentration - - Weight - [...] goal intervention scheduled/document ed in this visit Medications Disciplines: Shelter Management of home medications 06/17/2020 Active 1 [...] to scheduled/documen yun intervention 3 goal interventions scheduled/document ed in this visit Goals Goal Associated Problem Outcome Goal Met? Visit Notes Patient recieves care at the most appropriate care setting Description: Patient receives care at the most appropriate care setting. Homebound Status No Understand and follow medication therapy Description: Patient/caregiver will understand and follow prescribed medication therapy as evidence by having up to date medication list in home & ability to verbalize purpose, schedule, and side effects by the end of the episode of care Medications No Measure vital signs during every home health visit during episode of care Description: Home knitted garment finisher to measure vital signs during every home [...] to negotiate steps and/or uneven surfaces independently. Instruct on High Risk Medications Description: Instruct patient/caregiver on high-risk/high-alert medications, including: anti-convulsant, anti-retroviral, anti-coagulant, chemotherapeutic, hypo-glycemic, immunosuppressant, insulin, and opioid. Problem:Medications Goal:Understand and follow medication therapy Completed Teaching High-risk/high-alert medications (specifically eliquis ) with Patient. Monitor Vital Signs Description: Monitor blood pressure, pulse, oxygen saturation, respirations Problem:Monitor patient's vital signs every home health visit Goal:Measure vital signs during every home health visit during episode of care Completed vss Perform wound care as instructed by physician Description: wound #4 chest. pt/cg/sn cleanse wound with wound cleanser. pt may shower. pat dry. apply fibrocol to wound bed. cover with allevyn. to be changed every 2-3 days. alex rivera's office/dalia cha rn Problem:Wound Care Completed wound #4 chest. pt/cg/sn cleanse wound with wound cleanser. pt may shower. pat dry. apply fibrocol to wound bed. cover with allevyn. to be changed every 2-3 days. Disposal of Dressing Description: Dispose of soiled dressing by place in bag then place in patient's trashcan. Problem:Wound Risk of Infection Goal:Knowledgeable of infection Completed proper disposal of dressings Instruct Hand Washing Description: Instruct patient/caregiver on hand wash technique Problem:Wound Risk of Infection Goal:Knowledgeable of infection Completed wash hands prior to and after wound care Instruct on the signs and symptoms of infection Description: Assess wound with each visit for s/sx of infection Problem:Wound Risk of Infection Goal:Knowledgeable of infection Completed Assess wound with each visit for s/sx of infection- no s/s of infectionnnoted documented in this encounter Care Teams Tape Recorder Mechanic Relationship Specialty Start Date End Date cSott Oneill MD PCP - General Internal Medicine 04/27/20 documented as of this encounter
--- OUTSIDE RECORDS SUMMARY | 2024-04-04 01:43 | XMS_ITS | Encounter Summary ---
Author Organization [facility] Home Care Servic es Address [address] [place] [address] Phone Care Team Providers Care Cattle Dipper Name Role Phone Scott Oneill MD Primary Care Provider [phone]- [phone] Reason for Visit * Auth/Cert Specialty Diagnoses / Procedures Referred By Rocky t Referred To Contact Referral ID Status Reason Start Date Expiration Date Visits Re quested Visits Authorized [id number] 1 1 Encounter Details Date Type Department Care Team (Late st Contact Info) Description 08/04/2020 8:30 AM CDT Home Care Visit [facility] [address] [address] [address] [place] [address] Polly Saldaña RN SN HOME VISIT Social [...] on file 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 Gender Identity Male 12/24/2023 11:25 AM CDT Sexual Orientation Straight 12/24/2023 11 :25 AM CDT documented as of this encounter Last Filed Vital Signs Vital Sign Reading Time Taken Comments Blood Pressure 122/64 08/04/2020 8:37 AM CDT Pulse 68 08/04/2020 8:37 AM CDT Temperature 36.6 ??C (97.8 ??F) 08/04/2020 8:37 AM CD T Respiratory Rate 20 08/04/2020 8:37 AM CDT Oxygen Saturation 97% 08/04/2020 8:37 AM CDT Inhaled Oxygen Concentration - - Weight 99.3 kg (219 lb) 08/04/2020 8:37 AM CDT Height - - Body Mass Index 36.44 07/17/2020 8:05 PM CDT documented in this encounter Plan of Treatment Not on file documented as of this encounter Visit Diagnoses Not on filedocumented in this encounter Home Health Visit - Care Plan Visit Details Visit Type -SN Home Visit Discipline -Correction Problems Problem Description Start Date Status Goals Interve ntions Homebound Status Disciplines: Correction unable to leave the home without the assistance of another person. Decreased strength, endurance and balance. Elevated fall risk; unable to negotiate steps and/or uneven surfaces independently.Jessica hensley's homebound status 06/17/2020 Active 1 goal linked to scheduled/documen yun intervention 1 goal intervention scheduled/document ed in this visit Monitor patient's vital signs every home health visit Disciplines: Correction Monitor patient's vital signs every home health visit. 06/17/2020 Active 1 goal linked to scheduled/documen yun intervention 1 problem intervention scheduled/document ed in this visit 1 goal intervention scheduled/document ed in this visit Fall Precautions/S afety Concerns Disciplines: Correction Alteration in safety 06/17/2020 Active 1 goal linked to scheduled/documen yun intervention 1 goal intervention scheduled/document ed in this visit Wound Care Disciplines: Correction Wound care needed: wound #4, Chest. 06/17/2020 Active - 1 problem intervention scheduled/document ed in this visit Wound Risk of Infection Disciplines: Correction Risk of infections related to wounds 06/17/2020 [...] visit during episode of care Description: Home work distributor to measure vital signs during every home [...] every home health visit Completed see VS [place] Fall Precautions Description: Assess patient safety Problem:Fall [...] rivera's office/dalia cha rn Problem:Wound Care Completed cleanse wound with wound cleanser. pt may shower. pat dry. apply fibrocol to wound bed. cover with allevyn. Disposal of Dressing Description: Dispose of soiled dressing by place in bag then place in patient's trashcan. Problem:Wound Risk of Infection Goal:Knowledgeable of infection Completed disposed of dressing per protocol documented in this encounter Home Health Visit - Actions and Narratives Narratives SN arrived to home, greeted by patient. Patient identified by name and . SN assessment performed, see visit note. Wound assessment and care performed see wound note. See care plan for instructions and interventions documented in this encounter Care Teams Cattle Dipper Relationship Specialty Start Date End Date Scott Oneill MD PCP - General Internal Medicine 04/27/20 documented as of this encounter
--- OUTSIDE RECORDS SUMMARY | 2024-04-04 01:43 | XMS_ITS | Encounter Summary ---
Author Organization [facility] Home Care [facility] Address [address] [place] [address] Phone Care Team Providers Care Clinical Education Manager Name Role Phone Scott Oneill MD Primary Care Provider [phone]- [phone] Reason for Visit * Auth/Cert Specialty Diagnoses / Procedures Referred By Contac t Referred To Contact Referral ID Status Reason Start Date Expiration Date Visits Re quested Visits Authorized [id number] 1 1 Encounter Details Date Type Department Care Team (Late st Contact Info) Description 08/23/2020 Home Care Visit [facility] Home Health - [address] [place] [address] Georgina Hassan RN TRAVEL SCREENING CASE COMMUNICATION Social History [...] file 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
--- OUTSIDE RECORDS SUMMARY | 2024-04-04 01:43 | XMS_ITS | Encounter Summary ---
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 rx [id number] [id number] [facility] Indications: neuropathic pain, pain 06/09/2020 3 [...] on filedocumented in this encounter Care Teams Pallet Assembler Relationship Specialty Start Date End Date Scott Oneill MD PCP - General Internal Medicine 04/27/20 documented as of this encounter
--- OUTSIDE RECORDS SUMMARY | 2024-04-04 01:43 | XMS_ITS | Encounter Summary ---
Author Organization [facility] Home Care Servic es Address [address] [place] [address] Phone Care Team Providers Care Collections Professional Name Role Phone Scott Oneill MD Primary Care Provider [phone]- [phone] Reason for Visit * Auth/Cert Specialty Diagnoses / Procedures Referred By Rokcy t Referred To Contact Referral ID Status Reason Start Date Expiration Date Visits Re quested Visits Authorized [id number] 1 1 Encounter Details Date Type Department Care Team (Late st Contact Info) Description 07/24/2020 10:00 AM CDT Home Care Visit [facility] [address] [address] [address] [place] [address] Polly Saldaña RN SN HOME VISIT Social [...] on file 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 Gender Identity Male 12/24/2023 11:25 AM CDT Sexual Orientation Straight 12/24/2023 11 :25 AM CDT documented as of this encounter Last Filed Vital Signs Vital Sign Reading Time Taken Comments Blood Pressure 140/64 07/24/2020 8:58 AM CDT Pulse 62 07/24/2020 8:58 AM CDT Temperature 36.6 ??C (97.8 ??F) 07/24/2020 8:58 AM CD T Respiratory Rate 20 07/24/2020 8:58 AM CDT Oxygen Saturation 97% 07/24/2020 8:58 AM CDT Inhaled Oxygen Concentration - - Weight 98.9 kg (218 lb) 07/24/2020 8:58 AM CDT Height - - Body Mass Index 36.28 07/17/2020 8:05 PM CDT documented in this [...] unable to negotiate steps and/or uneven surfaces independently.Pat hortenciant's homebound status 06/17/2020 Active 1 goal linked [...] this visit Fall Precautions/S afety Concerns Disciplines: Usp Alteration in safety 06/17/2020 Active 1 goal linked to scheduled/documen yun intervention 1 goal intervention scheduled/document ed in this visit Wound Care Disciplines: Usp Wound care needed: wound #4, Chest. 06/17/2020 Active - 1 problem intervention scheduled/document ed in this visit Wound Risk of Infection Disciplines: Usp Risk of infections related to wounds 06/17/2020 Active 1 goal linked to scheduled/documen yun intervention 1 goal intervention scheduled/document ed in this visit Knowledge Deficit - Other Disease Process and Management Disciplines: Usp Disease process and management, CAD 06/17/2020 Active 1 goal linked to scheduled/documen yun intervention 2 goal interventions scheduled/document ed in this visit Wound Care Disciplines: Usp Wound care needed 07/21/2020 Active 1 goal linked to scheduled/documen yun intervention 4 goal interventions scheduled/document ed in this visit Goals Goal Associated Problem Outcome Goal Met? Visit Notes Patient recieves care at the most appropriate care setting Description: Patient receives care at the most appropriate care setting. Homebound Status No Measure vital signs during every home health visit during episode of care Description: Home land lease information clerk to measure vital signs during every home [...] - Other Disease Process and Management No Progression towards healing Description: Wound show progression towards healing by 08/15/20 Wound Care No Interventions Intervention Associated Problem/Goal Status Variance Visit Notes Homebound Status Description: unable to leave the home without the assistance of another person. Decreased strength, endurance and balance. Elevated fall risk; unable to negotiate steps and/or uneven surfaces independently. 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 Monitor Vital Signs Description: Monitor blood pressure, pulse, oxygen saturation, respirations Problem:Monitor patient's vital signs every home health visit Goal:Measure vital signs during every home health visit during episode of care Completed Monitor weight Description: patient to weigh daily and record. Problem:Monitor patient's vital signs every home health visit Completed [place] Fall Precautions Description: Assess patient safety Problem:Fall Precautions/Safety Concerns Goal:Demonstrate use of safety precautions Completed Wound care Description: wound #4 chest incision/wound care: sn instruct: pt to shower daily before wound care. let water run over incision/wound. pat dry. pack with Betadine soaked 2x2 gauze. cover with dry gauze and tape. daily and prn dislodgement/drainage. cg to do in SN absence if able. ANA Smiley RN/MM/ROLAN Problem:Wound Care Completed Disposal of Dressing Description: Dispose of soiled dressing by place in bag then place in patient's trashcan. Problem:Wound Risk of Infection Goal:Knowledgeable of infection Completed Notification of Complications Description: Instruct patient/caregiver when to notify SN/MD of complications Problem:Knowledge Deficit - Other Disease Process and Management Goal:Understanding of disease process Completed Patient instructed on S&S of complications to report to SN or MD Instruct on Disease Process Description: Instruct patient/caregiver on disease process and management, CAD. Problem:Knowledge Deficit - Other Disease Process and Management Goal:Understanding of disease process Completed Patient instructed on disease process of CAD Skilled assessment wound Description: Full wound assessment including measurement weekly. Wound assessment each visit Problem:Wound Care Goal:Progression towards healing Completed Wound Photo Description: Take and transmit wound photo. Problem:Wound Care Goal:Progression towards healing Completed Negative pressure wound therapy Description: Device: KCI activac Skilled nurse to perform NPWT dressing change frequency 3xweek and prn inability to maintain npwt dressing. . continuous Negative pressure wound therapy: Effective date 07/21 at 125 mmhg. Site chest incision as follows: Cleanse wound with wound cleanser or NS, pack tunnel or undermining with white foam, apply black foam to wound bed, cover with occlusive drape.. May fill periwound creases with ostomy paste/strip. May apply skin protective wipe such as skin prep to periwound. Problem:Wound Care Goal:Progression towards healing Completed Cleanse wound with wound cleanser applied black foam to wound bed, cover with occlusive drape.. Perform dressing change Description: Perform dressing change: KCI wound vac dressing change 3xweek Problem:Wound Care Goal:Progression towards healing Completed documented in this encounter Home Health Visit - Actions and Narratives Narratives SN arrived to home, greeted by patient. Patient identified by name and . SN assessment performede, see visit note. Wound assessment and care performed, see wound addendum. See care plan for instructions. Patient instructed navigation officer us first procedure. Patient verbalized understanding of all instructions documented in this encounter Care Teams Collections Professional Relationship Specialty Start Date End Date Scott Oneill MD PCP - General Internal Medicine 04/27/20 documented as of this encounter
--- OUTSIDE RECORDS SUMMARY | 2024-04-04 01:43 | XMS_ITS | Encounter Summary ---
Author Organization [facility] Home Care [facility] es Address [address] [place] [address] Phone Care Team Providers Care Self Contained Behavior Unit Teacher Name Role Phone Scott Oneill MD Primary Care Provider [phone]- [phone] Reason for Visit * Auth/Cert Specialty Diagnoses / Procedures Referred By Contac t Referred To Contact Referral ID Status Reason Start Date Expiration Date Visits Re quested Visits Authorized [id number] 1 1 Encounter Details Date Type Department Care Team (Late st Contact Info) Description 07/31/2020 Home Care Visit [facility] Home Health - [address] [place] [id number] Shahid East RN TELEPHONE ENCOUNTER Social History Tobacco Use [...] on file 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
--- OUTSIDE RECORDS SUMMARY | 2024-04-04 01:43 | XMS_ITS | Encounter Summary ---
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 [address] [place] [address] Hernan Cordero MD [address] 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 Gender Identity Male 12/24/2023 11:25 AM CDT Sexual Orientation Straight 12/24/2023 11 :25 AM CDT documented as of this encounter Last Filed Vital Signs Vital Sign Reading Time Taken Comments Blood Pressure 153/66 07/19/2020 9:06 AM CDT Pulse 67 07/19/2020 9:06 AM CDT Temperature 36.9 ??C (98.4 ??F) 07/19/2020 9:06 AM CD T Respiratory Rate 18 07/19/2020 9:06 AM CDT Oxygen Saturation 96% 07/19/2020 9:06 AM CDT Inhaled Oxygen Concentration - - Weight 98.2 kg (216 lb 7.9 oz) 07/18/2020 10:37 AM CDT Height 165.1 cm (5' 5 ) 07/17/2020 8:05 PM CDT Body Mass Index 36.03 07/17/2020 8:05 PM CDT documented in this encounter Discharge Diagnoses Diagnosis Other complications of procedures, not elsewhere classified, initial encounter - OTHER COMPLICATIONS OF PROCEDURES, NOT ELSEWHERE CLASSIFIED, INITIAL ENCOUNTER Atherosclerotic heart disease of [place] coronary artery without angina pectoris - ATHEROSCLEROTIC HEART DISEASE OF [place] CORONARY ARTERY WITHOUT ANGINA PECTORIS Hypertensive chronic kidney disease with stage 1 through stage 4 chronic kidney disease, or unspecified chronic kidney disease - HYPERTENSIVE CHRONIC KIDNEY DISEASE WITH STAGE 1 THROUGH STAGE 4 CHRONIC KIDNEY DISEASE, OR UNSPECIF Chronic kidney disease, stage 3b (HCC) - CHRONIC KIDNEY DISEASE, STAGE 3B Obesity, unspecified - OBESITY, UNSPECIFIED Surgical operation with anastomosis, bypass or graft as the cause of abnormal reaction of the patient, or of later complication, without mention of misadventure at the time of the procedure - SURGICAL OPERATION WITH ANASTOMOSIS, BYPASS OR GRAFT THE CAUSE OF ABNORMAL REACTION OF THE PATIEN Other specified events, undetermined intent, initial encounter - OTHER SPECIFIED EVENTS, UNDETERMINED INTENT, INITIAL ENCOUNTER Unspecified place or not applicable - UNSPECIFIED PLACE OR NOT APPLICABLE Hyperlipidemia, unspecified - HYPERLIPIDEMIA, UNSPECIFIED Personal history of nicotine dependence - PERSONAL HISTORY OF NICOTINE DEPENDENCE Presence of aortocoronary bypass graft - PRESENCE OF AORTOCORONARY BYPASS GRAFT senior care (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) use of 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 Long-term (current) use of anticoagulants Body mass index (BMI) 34.0-34.9, adult - BODY MASS INDEX [BMI] 34.0-34.9, ADULT Personal history of peptic ulcer disease - PERSONAL HISTORY OF PEPTIC ULCER DISEASE Personal history of other venous thrombosis and embolism - PERSONAL HISTORY OF OTHER VENOUS THROMBOSIS AND 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 - DETENTION (CURRENT) USE OF ASPIRIN Other intermediate designer (current) drug therapy - OTHER DETENTION (CURRENT) DRUG THERAPY Personal history of other malignant neoplasm of skin - PERSONAL HISTORY OF OTHER MALIGNANT NEOPLASM OF SKIN Family history of ischemic heart disease and other diseases of the circulatory system - FAMILY HISTORY OF ISCHEMIC HEART DISEASE AND OTHER DISEASES OF THE CIRCULATORY SYSTEM Family history of malignant neoplasm, unspecified - FAMILY HISTORY OF MALIGNANT NEOPLASM, UNSPECIFIED documented in this encounter Discharge Summaries * Hernan Cordero MD - 07/19/2020 1:30 PM CDT Inpatient Discharge Summary BRIEF OVERVIEW Admitting Provider: Hernan Cordero MD Discharge Provider: No att. providers found Primary Care Physician at Discharge: Scott Oneill MD [phone] Admission Date: 07/17/2020 Discharge Date: 07/19/2020 Admission Location: [facility] Hospital Problems/Diagnoses: Principal Problem: Non-healing upper sternal wound Secondary Problems: Multivessel coronary artery disease with accelerating angina, s/p CABG x 3 on 06/12/20 Hypertension Hyperlipidemia CKD stage 3b Obesity Hx of DVT Obesity Sleep apnea Peptic ulcer disease with prior embolization of the gastroduodenal artery in 2017 DETAILS OF HOSPITAL STAY Presenting Problem/History of Present Illness: Britton Nielsen is a 65 y.o. male presenting with a nonhealing sternal incision. He underwenta coronary bypass graft x3 with left internal mammary artery to the LAD, saphenous vein graft to the intermediate, saphenous vein graft to the right coronary posterior descending branch on 06/12/2020. He did well postoperatively, but a week ago he came to the office with blisters on the upper aspect of his sternal wound, this was opened up in the office, did not appear to go down to the wires, wecultured it in a grew out a light growth of coag-negative staph, we treated it with local wound care, foot on examination in the office today was too painful for the patient to allow me to debride the wound and he is admitted for local wound exploration and possibly wound VAC placement. 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 He denies any constitutional symptoms with this current presentation.He is on Eliquis for his history of DVT. Hospital Course: The patient was electively taken to the operating room by Dr. Cordero and underwent superficial sternal wound exploration and wound vac placement on 07/17/20. Post-procedure he transferred to the PCU with stable breathing on room air. He was otherwise without significant complaints and his home medication regimen was resumed. On 07/19/20 the wound vac was changed with Dr. Cordero present and the patient tolerated the procedure well. He was discharged home with the wound vac in place. Operative Procedures Performed: Procedure(s): superficialsternal wound exploration. Discharge Details Physical Exam at Discharge: Discharge Condition: stable Pulse: 67 Resp: 18 BP: 153/66 Temp: 36.9 ??C (98.4 ??F) Weight: 98.2 kg (216 lb 7.9 oz) Pertinent Exam Findings at Discharge: Gen: A&O, NAD Lungs: Clear to auscultation Heart: RRR Ext: warm, no edema Skin: Sternal incision with small wound vac at the upper aspect, remainder of the incision is c/d/i Discharge Disposition: Discharge to home or self care Code Status at Discharge: Full code Discharge Instructions: Other Instructions Ambulatory referral to Home Health Service Line: Home Health Primary disciplines requested: Detention Home Health Services: Wound/ Ostomy Care Physician to follow patient's care (the person listed here will be responsible for signing ongoing orders): Referring Provider Requested Start of Care Date: Within 2 - 3 Days Special instructions (labs, wound care, etc.): Resume skilled Rn visits for NPWT @ 125mmHG continuous. Dressing change 3 times weekly. Back-up wound care is NS moistened 4x4s wound packing, dry dressing to cover, secure with tape. Please call Dr. Cordero for concerns [phone] I attest that I or another qualified licensed provider saw the patient 90 days prior to or 30 days post admission and this face to face encounter meets the necessary Home Health requirements. The face to face encounter occurred on (date): 07/18/2020 The encounter with the patient was in whole, or in part, for the following medical condition, whichis the primary reason for home health care. (List medical condition): Non-healing sternal wound I certify that, based on my findings, the following services are medically necessary skilled home health services: Wound/ Ostomy Care Clinical findings that support the need for home care: Wound requiring care, assessment, and instruction Medical condition requiring skilled assessment/education I certify that my clinical findings support patient's homebound status. Homebound criteria met because: Poor endurance Requires assistance of another to leave home safely Pain and impaired mobility post-op Referral/ Patient Comments: ++Planning resumption visit on Friday07/21/20++ Discharge Medications: Current Medications TAKE these medications apixaban 5 mg tablet Take 5 mg by mouth 2 (two) times a day Commonly known as: ELIQUIS aspirin 81 mg enteric coated tablet Take 1 tablet (81 mg total) by mouth daily atorvastatin 20 mg tablet Take 2 tablets (40 mg total) by mouth daily Commonly known as: LIPITOR furosemide 40 mg tablet Take 40 mg by mouth daily Commonly known as: LASIX gabapentin 300 mg capsule Take 300 mg by mouth 2 (two) times a day Commonly known as: NEURONTIN HYDROcodone-acetaminophen 5-325 mg per tablet Take 2 tablets by mouth every 6 (six) hours as needed for pain For: pain Commonly known as: NORCO labetaloL 200 mg tablet Take 200 mg by mouth 2 (two) times a day Commonly known as: NORMODYNE,TRANDATE potassium chloride ER 20 mEq CR tablet Take 20 mEq by mouth 2 (two) times a day Commonly known as: KLOR-CON Vitamin D2 50,000 unit capsule Take 50,000 Units by mouth once a week On Friday Generic drug: ergocalciferol Outpatient Follow-Up: Future Appointments Date Time Provider Department Center 08/01/2020 12:45 PM Hernan Cordero MD [facility] 09/18/2020 11:45 AM Kathrin Austin MD [facility] Contact Information for Follow-ups [facility] Home Care Services Specialty: Home Health and Hospice [address] [facility] [address] Next Steps: Follow up Questions: Service Line: Home Health Primary disciplines requested: Detention Home Health Services: Wound/ Ostomy Care Physician to follow patient's care (the person listed here will be responsible for signing ongoing orders): Referring Provider Requested Start of Care Date: Within 2 - 3 Days Special instructions (labs, wound care, etc.): Resume skilled Rn visits for NPWT @ 125mmHG continuous. Dressing change 3 times weekly. Back-up wound care is NS moistened 4x4s wound packing, dry dressing to cover, secure with tape. Please call Dr. Cordero for concerns [phone] I attest that I or another qualified licensed provider saw the patient 90 days prior to or 30 days post admission and this face to face encounter meets the necessary Home Health requirements. The face to face encounter occurred on (date): 07/18/2020 The encounter with the patient was in whole, or in part, for the following medical condition, whichis the primary reason for home health care. (List medical condition): Non-healing sternal wound I certify that, based on my findings, the following services are medically necessary skilled home health services: Wound/ Ostomy Care Clinical findings that support the need for home care: Wound requiring care, assessment, and instruction Medical condition requiring skilled assessment/education I certify that my clinical findings support patient's homebound status. Homebound criteria met because: Poor endurance Requires assistance of another to leave home safely Pain and impaired mobility post-op Referral/ Patient Comments: ++Planning resumption visit on Friday07/21/20++ Referral Status: Pending Authorization Scott Oneill MD Specialty: Internal Medicine Relationship: PCP - General [address] [place] [address] Next Steps: Follow up Addendum: Wound examined with the wound care nurse on the day of discharge, again there does not appear to be any extension of the wound to the sternal wires, there was absolutely no purulence, we will let the patient go home with a wound VAC in place, see him in approximately 1 week. We will finish out the doxycycline that he was sent home with from the office. documented in this encounter Medications at Time [...] a day as needed for pain. rx [id number] QTY 29 [facility] Indications: neuropathic pain, pain 06/09/2020 3 Vitamin D2 1,250 mcg (50,000 unit) capsule Take 1 capsule (50,000 Units total) by mouth once a week On Friday02/11/2020 4 documented as of this encounter Discharge Disposition Disposition Code Departure Means Destination Discharge to home or self care documented in this encounter Progress Notes * Yudith Berger, RD - 07/19/2020 1:30 PM CDT Initial Nutrition Assessment Reason for Assessment: Screened at Nutrition Risk Encounter Date: 07/19/20 4:22 PM Nutrition Evaluation: Patient is a 65 y.o. male. Admit Dx: STERNAL WOUND/EXPLORATION STERNAL WOUND. Admitted on 07/17/2020, current LOS is 2 days. 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 Objective Past Medical History: Diagnosis Date ??? Arthritis ??? Coronary artery disease ??? DVT (deep venous thrombosis) (CMS/HCC) ??? History of transfusion ??? Hyperlipidemia ??? Hypertension ??? Overweight ??? Renal failure ??? Skin cancer ??? Sleep apnea Past Surgical History: Procedure Laterality Date ??? CARDIAC CATHETERIZATION 06/08/2020 ??? CORONARY ARTERY BYPASS GRAFT 06/12/2020 CABG X3 ??? NO PAST SURGERIES Anthropometrics Weight: 98.2 kg (216 lb 7.9 oz) Admission Weight : 94.7 kg Weight Change: 0.29 kg (0.66 lbs) IBW/kg (Calculated) : 61.7 kg Height: 165.1 cm (5' 5 ) Weight in (lb) to have BMI = 25: 149.9 BMI (Calculated): 36 Intake/Output Summary (Last 24 hours) at 07/19/2020 1622 Last data filed at 07/19/2020 0740 Gross per 24 hour Intake 350 ml Output -- Net 350 ml Medications and Lab Review: Scheduled Meds: apixaban, 5 mg, oral, BID aspirin, 81 mg, oral, Daily atorvastatin, 40 mg, oral, Daily ceFAZolin, 1,000 mg, intravenous, Q12H ANUEL furosemide, 40 mg, oral, Daily gabapentin, 300 mg, oral, BID labetaloL, 200 mg, oral, BID potassium chloride ER, 20 mEq, oral, BID sodium chloride 0.9%, 0.5-20 mL, intra-catheter, Q8H ANUEL Continuous Infusions: sodium chloride 0.9%, 125 mL/hr, Last Rate: Stopped (07/17/202010) PRN Meds: HYDROcodone-acetaminophen ??? ondansetron ??? sodium chloride 0.9% Sodium Date Value Ref Range Status 07/18/2020 141 135 - 145 mmol/L Final Potassium, pl Date Value Ref Range Status 07/18/2020 4.3 3.3 - 4.9 mmol/L Final BUN Date Value Ref Range Status 07/18/2020 37 (H) 8 - 25 mg/dL Final Creatinine Date Value Ref Range Status 07/18/2020 2.00 (H) 0.80 - 1.30 mg/dL Final Calcium Date Value Ref Range Status 07/18/2020 8.7 8.5 - 10.3 mg/dL Final Lab Results Component Value Date HGBA1C 5.3 06/10/2020 Nursing Assessment: Last BM Date: 07/18/20 Bowel Sounds (All Quadrants): Active Jacques Scale Score: 22 Skin Integrity: Surgical incision Dietary Orders (From admission, onward) Start Ordered 07/18/20 1448 Oral Nutrition Supplements Select Supplement: Levi - Any Flavor With Breakfast and Dinner Question: Select Supplement: Answer: Elvi - Any Flavor 07/18/20 1447 07/17/202005 Adult Diet Special; Low Fat, Low Chol, Low Na Diet effective now Question Answer Comment ([facility]) Diet type Special Fat / Sodium Restriction: Low Fat, Low Chol, Low Na 07/17/202004 Nutrition Needs Calculations: Calculated Energy Needs Using Equations Weight: 98.2 kg (216 lb 7.9 oz) Height: 165.1 cm (5' 5 ) Estimated Protein Needs Type of Weight Used for Estimated Protein : Current Protein Needs Based on g/k.0 Total Protein Estimated Needs (gm): 98.2 Kcal/kg Type of Weight Used for Estimated Kcals: [place] Kcal/k Total Kcal/kg Estimated Needs : 1665.9 Nutritional Needs and Diagnosis: Nutrition Diagnosis 1: Increased nutrient needs (protein) Related to: Wounds Evidenced by: Patient interview, Physical finding Impression: S/p CABG on 06/12/20. Presents with non-healing upper sternal wound, s/p superficial sternal wound exploration with wound vac on 07/17. Hx CKD stage 3. On May 2020 admission, pt received Levi and RD provided heart healthy diet education and short-term high-protein diet education for wound healing in the context of CKD. Pt has been following recommendations and has been drinking Ensure at home. Encouraged continuation of supplement (also recommended switching to Ensure Max or Premier Protein for higher protein and fewer calories) and protein-rich foods. Pt verbalized understanding. Plan: Pt has since discharged. Intervention and Monitoring: Goals: Adequate nutrition to meet estimated needs by next assessment, Patient/caregiver able to teach back understanding of role of diet in disease process prior to discharge, Tolerance of medical food supplement by next assessment Interventions: Medical food supplement, Encouragement Monitoring and Evaluation: PO intake, Plan of care, Labs, Wound healing, Supplement tolerance Yudith Berger RD,LD * Jono Kovacs PA - 07/18/2020 1:02 PM CDT Cardiothoracic Surgery Progress Note Subjective Chief Complaint: Non-healing upper sternal wound; s/p superficial sternal wound exploration and wound vac placement on 07/18/20 Interval History: No issues overnight. He reports some discomfort at the wound vac site, but [place] helps control the pain. His is otherwise stable and doing well. Objective VS: BP 124/59 (BP Location: Left arm, Patient Position: Sitting) Pulse 63 Temp 36.6 ??C (97.8 ??F) (Oral) Resp 18 Ht 165.1 cm (5' 5 ) Wt 98.2 kg (216 lb 7.9 oz) SpO2 98% BMI 36.03 kg/m?? 24hr Min/Max: Temp Min: 36.2 ??C (97.2 ??F) Max: 36.8 ??C (98.2 ??F) Pulse Min: 53 Max: 84 BP Min: 124/59 Max: 160/76 Resp Min: 8 Max: 24 SpO2 Min: 95 % Max: 100 % Intake/Output Summary (Last 24 hours) at 07/18/2020 1302 Last data filed at 07/18/2020 0855 Gross per 24 hour Intake 520 ml Output 1000 ml Net -480 ml Cardiac Telemetry: sinus rhythm Physical Exam: Gen: A&O, NAD Lungs: Clear to auscultation Heart: RRR Ext: Warm, trace lower extremity edema Skin: Sternal incision with small wound vac at the upper aspect, remainder of the incision is c/d/i Lab Review: Lab Results Lab Value Date/Time WBC 4.3 07/18/2020 0121 HGB 8.7 (L) 07/18/2020 012 HGB 9.0 (L) 06/12/2020 1241 HCT 27.8 (L) 07/18/2020 012 LABPLAT 158 07/18/2020 012 SODIUM 141 07/18/2020 0121 POTASSIUM 4.3 07/18/2020 0121 CHLORIDE 108 07/18/2020 0121 CO2 24 07/18/2020 0121 ANIONGAP 9 07/18/2020 012 BUNSER 37 (H) 07/18/2020 0121 CREATININE 2.00 (H) 07/18/2020 0121 GLUCOSE 112 07/18/2020 0121 CALCIUM 8.7 07/18/2020 0121 MAGNESIUM 2.4 06/15/2020 0030 APTT 42 (H) 06/12/2020 1312 INR 1.4 (H) 06/12/2020 1312 PT 15.0 (H) 06/12/2020 1312 Assessment ?? Non-healing upper sternal wound; s/p superficial sternal wound exploration and wound vac placement on 07/18/20 ?? Multivessel coronary artery disease with accelerating angina, s/p CABG x 3 on 06/12/20 ?? Hypertension ?? Hyperlipidemia ?? CKD stage 3b ?? Obesity ?? Hx of DVT ?? Obesity ?? Sleep apnea ?? Peptic ulcer disease with prior embolization of the gastroduodenal artery in 2016 Plan ?? Maintain wound vac with plans to do wound vac change tomorrow with wound care team, continue IV Ancef ?? ASA and Eliquis for anticoagulation ?? Continue home medication regimen of Labetalol, Lipitor, Lasix ?? [place] and Gabapentin for pain control ?? DVT prophylaxis (Eliquis) Plan reviewed with ROMI Friedman 07/18/2020 documented in this encounter H&P Notes * Hernan Cordero MD - 07/17/2020 1:19 PM CDT Cardiac-Thoracic Surgery Patient Name: Britton Nielsen Sr. : 1955 Referred by: No ref. provider found Date of Visit: 07/17/20 Chief Complaint: No chief complaint on file. HPI: Britton Nielsen Sr. is a 65 y.o. male presenting with a nonhealing sternal incision. He underwent a coronary bypass graft x3 with left internal mammary artery to the LAD, saphenous vein graft to the intermediate, saphenous vein graft to the right coronary posterior descending branch on 06/12/2020. He did well postoperatively, but a week ago he came to the office with blisters on the upper aspect of his sternal wound, this was opened up in the office, did not appear to go down to the wires, we cultured it in a grew out a light growth of coag-negative staph, we treated it with local wound care, foot on examination in the office today was too painful for the patient to allow me to debride the wound and he is admitted for local wound exploration and possibly wound VAC placement. 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 He denies any constitutional symptoms with this current presentation. He is on Eliquis for his history of DVT. Allergies as of 07/17/2020 ??? (No Known Allergies) Prior to Admission medications Medication Sig Start Date End Date Taking? Authorizing Provider apixaban (ELIQUIS) 5 mg tablet Take 5 mg by mouth 2 (two) times a day Rivera Veras MD aspirin 81 mg enteric coated tablet Take 1 tablet (81 mg total) by mouth daily 06/15/20 06/15/21 Hernan Cordero MD atorvastatin (LIPITOR) 20 mg tablet Take 2 tablets (40 mg total) by mouth daily 06/15/20 Hernan Cordero MD doxycycline (VIBRAMYCIN) 100 mg capsule Take 1 tablet/capsule (100 mg total) by mouth 2 (two) timesa day for 10 days 07/13/20 07/23/20 Skye Hawthorne NP furosemide (LASIX) 40 mg tablet Take 40 mg by mouth daily 03/27/20 Rivera Veras MD gabapentin (NEURONTIN) 300 mg capsule Take 300 mg by mouth 2 (two) times a day 01/26/20 Rivera Veras MD HYDROcodone-acetaminophen (NORCO) 5-325 mg per tablet Take 2 tablets by mouth every 6 (six) hours as needed for pain 07/13/20 Skye Hawthorne NP labetaloL (NORMODYNE,TRANDATE) 200 mg tablet Take 200 mg by mouth 2 (two) times a day 03/26/20 Rivera Veras MD potassium chloride ER 20 mEq CR tablet Take 20 mEq by mouth 2 (two) times a day 04/06/20 Rivera Veras MD Vitamin D2 1,250 mcg (50,000 unit) capsule Take 50,000 Units by mouth once a week On Friday02/11/20 ProviderRivera MD oxyCODONE-acetaminophen (PERCOCET) 5-325 mg per tablet Take 1-2 tablets by mouth every 6 (six) hours as needed for pain Patient not taking: Reported on 07/12/2020 06/15/20 07/17/20 Hernan Cordero MD No current facility-administered medications for this encounter. Past Medical History: Diagnosis Date ??? Arthritis ??? Coronary artery disease ??? DVT (deep venous thrombosis) (CMS/HCC) ??? History of transfusion ??? Hyperlipidemia ??? Hypertension ??? Overweight ??? Renal failure ??? Skin cancer ??? Sleep apnea Past Surgical History: Procedure Laterality Date ??? CARDIAC CATHETERIZATION 06/08/2020 ??? CORONARY ARTERY BYPASS GRAFT 06/12/2020 CABG X3 ??? NO PAST SURGERIES Family History Problem Relation Age of Onset ??? Heart disease Mother ??? Heart disease Father ??? Other (Septic ) Sister ??? Cancer Brother Social History Quit smoking 8 years ago, 1 of 12 kids to a father who was a bottle washing machine operator, has a beagle named Shanel. Review of Systems No fevers, chills, constitutional symptoms. The remainder of the review of systems were reviewed including cardiovascular, pulmonary, gastrointestinal, renal, urologic, dermatologic, hematologic, ophthalmological, and neurologic are negative.. Objective: There were no vitals filed for this visit. Physical Exam: General Appearance: Well developed, well nourished, in no acute distress Neck: Examination of jugular veins WNL Respiratory: Lungs clear to auscultation bilaterally Cardiovascular: Regular rate and rhythm with no murmurs, upper sternal wound is open, I debrided the adipose tissue and felt a knot up high, he was not able to tolerate my exploration of the wound locally. Extremities: No clubbing, cyanosis, mild ankle edema bilaterally. Skin: warm and dry Neurologic/ Psychiatric: Alert and oriented x 3 with a grossly normal motor exam Data Review: Assessment and Plan: 65-year-old patient status post coronary bypass graft x3 1 month ago comes in with a nonhealing sternal wound, and I was not satisfied that I could debride this adequately in the office. He is admitted for sternal wound exploration, explained the risks of bleeding, infection, recurrence of infection, need for sternal revision today versus later, and . We will check a CBC and BMP and a chest x-ray and explore his wound later this afternoon. documented in this encounter Consult Notes * Mary Beth Waller RN - 07/19/2020 3:18 PM CDT Delivered home approved Activac to room, instructed pt on it's usage. Connected to home activac running at 125 mm/hg continuously. Patient stated understanding. Talked with [employer]OR. documented in this encounter Nursing Notes * Mary Beth Waller RN - 07/19/2020 8:15 AM CDT Images from the original note were not included. 07/19/20 0806 Surgical Site 06/12/20 Chest Date First Assessed/Time First Assessed: 06/12/20 0852 Location: Chest Site Assessment Red;[place];Yellow;Fragile;Granulation tissue Miguel-wound Assessment Blanchable erythema;Fragile;Painful Closure Unapproximated Drainage Amount Small Drainage Description Serosanguineous Drainage Odor No odor Dressing Status Clean, dry, intact Dressing Intervention Dressing changed Interventions Cleansed Wound Length (cm) 6.5 cm Wound Width (cm) 2 cm Wound Depth (cm) 1.5 Calculated Wound Size (cm^3) 19.5 cm^2 Tunneling (_cm at _o'clock) 0 Undermining (_cm from _o'clock to _o'clock) 0 Granulation Covering Wound Bed % 40 Change in Wound Size % -324.84 Wound Image Impression: wound vac drsg changed, Dr Cordero here to assess sternal wound. Wound vac drsg applied running at 125 mm/hg continuously. Waiting for home Activac to be approved. Patient tolerated well. documented in this encounter Miscellaneous Notes * Plan of Care - Nir Correa RN - 07/19/2020 3:13 PM CDT Problem: Health Behavior: Goal: Understanding of discharge needs will improve Outcome: Adequate for Discharge Problem: Lack of Knowledge: Goal: Ability to develop a pain control plan will improve Outcome: Adequate for Discharge Goal: Ability to identify pain intensity on a pain scale and rate it consistently will improve Outcome: Adequate for Discharge Goal: Ability to notify healthcare provider of pain before it becomes unmanageable or unbearable will improve Outcome: Adequate for Discharge Problem: Medication: Goal: Satisfaction with pain management regimen will improve Outcome: Adequate for Discharge Problem: Sensory: Goal: Ability to identify factors that increase the pain will improve Outcome: Adequate for Discharge Goal: Pain level will decrease Outcome: Adequate for Discharge Problem: Lack of Knowledge: Goal: Knowledge of the prescribed therapeutic regimen will improve Outcome: Adequate for Discharge Problem: Physical Regulation: Goal: Complications related to the disease process, condition or treatment will be avoided or minimized Outcome: Adequate for Discharge Problem: Sensory: Goal: Pain level will decrease Outcome: Adequate for Discharge Problem: Skin Integrity: Goal: Skin integrity will be maintained Outcome: Adequate for Discharge Goal: Skin integrity will improve Outcome: Adequate for Discharge Problem: Tissue Perfusion: Goal: Ability to maintain adequate tissue perfusion will improve Outcome: Adequate for Discharge Goals: Clinical Goals for the Shift: VSS, Cardiac monitoring, pain management, wound vac, meds, discharge Summary: VSS. Pt to discharge home with wound vac. Discharge instructions discussed with patient and spouse. All questions and concerns addressed prior to discharge. * Plan of Care - Francisca Scherer RN - 07/19/2020 1:37 PM CDT Contacted Libra Still Wound placement officer Regarding patients home wound vac. Per Libra, still awaiting insurance authorization for home wound vac. Patient and Nir Law RN updated regarding above. * Plan of Care - Addison Armstrong RN - 07/19/2020 12:47 PM CDT Home Health order and CM note reviewed, I am arranging Resume of [facility] [phone], plan Skilled Nurse visit on Friday 07/21 for assessment and wound Vac care. * Plan of Care - Serenity Watkins RN - 07/19/2020 4:14 AM CDT Problem: Health Behavior: Goal: Understanding of discharge needs will improve Outcome: Progressing Goals: Clinical Goals for the Shift: monitor rhythm, I/O, wound vac, control pain Summary: Pt remained in NSR, pain controlled with PRN norco, wound vac CDI, pt educated on being discharged with wound vac * Plan of Care - Hannah Santamaria RN - 07/18/2020 5:24 PM CDT Goals: Clinical Goals for the Shift: Monitor on tele, Vital signs, pain management, safety Patient alert and oriented x3. SR on tele. Wound Vac in-situ.Vitals stable. Pain improved without pharmacological intervention. On IV Abx. Safety maintained. Hannah Santamaria RN * Plan of Care - Francisca Scherer RN - 07/18/2020 10:53 AM CDT Met with patient to assess discharge planning needs. at bedside. Lives at home with . Independent with adl's. Patient states he is aware of plan for discharge home with wound vac likely tomorrow.. Wound care consult ordered. Notified Libra Still Wound placement officer of plans for home wound vac. Libra Still Will initiate request for home wound vac authorization with patients insurance. Patient informed of above and agreeable with plan. Home health care orders received. Patient declined [facility] agency choice list and has chosen [facility]. Case management will continue to monitor patients progress and assist with discharge planning. * Plan of Care - Serenity Watkins RN - 07/18/2020 5:14 AM CDT Problem: Health Behavior: Goal: Understanding of discharge needs will improve Outcome: Progressing Goals: Clinical Goals for the Shift: VSS, monitor I/O, wound vac, control pain, orient to PCU * Plan of Care - Serenity Watkins RN - 07/18/2020 5:13 AM CDT Problem: Health Behavior: Goal: Understanding of discharge needs will improve Outcome: Progressing Problem: Health Behavior: Goal: Understanding of discharge needs will improve Outcome: Progressing Goals: Clinical Goals for the Shift: VSS, monitor I/O, wound vac, control pain, orient to PCU * Op Note - Hernan Cordero MD - 07/17/2020 8:05 AM CDT OPERATIVE REPORT SURGEON Hernan Cordero MD [employer]ALL SHEAR OPERATOR ROSE Iqbal PREOPERATIVE DIAGNOSES Nonhealing upper sternal wound. POSTOPERATIVE DIAGNOSES Same PROCEDURE PERFORMED Procedure(s): superficialsternal wound exploration. DATE OF PROCEDURE 07/17/2020 ANESTHESIA General Endotracheal Anesthesia ANESTHESIOLOGIST Michoacano Bonner MD BRIEF HISTORY Mr. Nielsen is a 65-year-old patient who underwent a coronary bypass graft x3 on 06/12/2020. He did well postoperatively, but then developed blistering of the upper sternal incision, this was openedup in the office, it grew a light growth of coagulase-negative staph that we considered a contaminant, but because I was not able to explore it in the office without causing the patient excessive pain we scheduled him for exploration under sedation. At operation the wound did not appear to go down to the level of the sternal wires, it did not tunnel significantly, there was significant amount of on dissolved absorbable suture in both the skin and in the subcutaneous tissue that was removed, this was irrigated with Ancef solution and a wound VAC was placed. No culture was taken as there was nopurulence seen. DESCRIPTION OF PROCEDURE After delivery of the patient to the operating room, the patient was placed under a sed station anesthetic and was prepped and draped in usual sterile manner. The sternal wound was explored and the upper skin incision was extended approximately 2 cm to fully open the wound. Retained absorbable suture was removed, the incision was power irrigated with Ancef solution, and a wound VAC was placed. There were 2 other small blistered sites along the sternal incision that were probed with a mosquito and subcuticular stitch was removed but these areas did not appear to go any deeper. The patient was returned to the recovery room in stable condition. documented in this encounter Plan of Treatment Not on file documented as of this encounter Procedures Procedure Name Priority Date/Time Associated Diagnosis Comments EGFR Routine 07/18/2020 1:21 AM CDT CBC WITHOUT DIFFERENTIAL Routine 07/18/2020 1:21 AM CDT BASIC METABOLIC PANEL Routine 07/18/2020 1:21 AM CDT EXPLORATION WOUND 07/17/2020 2:3 7 PM CDT STERNAL WOUND XR CHEST 1 VIEW ED Urgent/IP Urgent 07/17/2020 2:15 PM CDT EGFR STAT 07/17/2020 1:47 PM CDT DIFFERENTIAL AUTO STAT 07/17/2020 1:4 7 PM CDT CBC WITH AUTO DIFFERENTIAL STAT 07/17/2020 1:47 PM CDT TYPE AND SCREEN STAT 07/17/2020 1:47 PM CDT BASIC METABOLIC PANEL STAT 07/17/2020 1:47 PM CDT documented in this encounter Results * eGFR (07/18/2020 1:21 AM CDT) eGFR 34 mL/min/1.7 3 m2 [facility] Comment: Interpretive Data Reference Interval Normal ?>/= 90 mL/min/1.73m2 Mildly decreased* ? 60 - 89 mL/min/1.73m2 Mildly to moderately decreased ?45 - 59 mL/min/1.73m2 Moderately to severely decreased ??30 - 44 mL/min/1.73m2 Severely decreased ?15 - 29 mL/min/1.73m2 Kidney Failure ?< 15 ??mL/min/1.73m2 *Relative to young adult level Estimated glomerular filtration rate is determined by the CKD-EPI equation recommended by the National Kidney Foundation (KDIGO 2012 Clinical Practice Guideline for the Evaluation and Management of Chronic Kidney Disease. Kidney Intnl Suppl Mar 2012;3:1). The CKD-EPI equation should not be used for patients with unstable renal function and has not been validated in children and those over 70. Current interpretive data was last reviewed 2020 Blood specimen (specimen) 07/18/2020 1:21 AM CDT 07/18/2020 1:41 AM CDT us Jono LLANOS LAB BLOOD ORDERABLES Final R esult [facility] [address] Department [place] [address] * (ABNORMAL) Basic metabolic panel (07/18/2020 1:21 AM CDT) Pathologist [facility] Sodium 141 135 - 145 mmol/L [facility] Potassium, pl 4.3 3.3 - 4.9 mmol/L [facility] Chloride 108 97 - 110 mmol/L [facility] CO2 24 22 - 32 mmol/L [facility] Anion gap 9 2 - 15 mmol/L [facility] BUN 37(H) 8 - 25 mg/dL [facility] Creatinine 2.00(H) 0.80 - 1.30 mg/dL [facility] Glucose 112 70 - 199 mg/dL [facility] Comment: Interpretive Data Fasting glucose >/= 126 mg/dl is diagnostic for diabetes. ?? Fasting is defined as no caloric intake for at least 8 hours. Fasting glucose between 100 mg/dl to 125 mg/dl is diagnostic of prediabetes. In a patient with classic symptoms of hyperglycemia or hyperglycemic crisis, a random glucose >/= 200 mg/dl is diagnostic for diabetes. In the absence of unequivocal hyperglycemia, results should be confirmed by repeat testing. The classification and Diagnosis of Diabetes Diabetes Care 2017;40 (Suppl. 1):S11. Current interpretive data was last revised 2017. Calcium 8.7 8.5 - 10.3 mg/dL [facility] Blood specimen (specimen) 07/18/2020 1:21 AM CDT 07/18/2020 1:41 AM CDT us Jono LLANOS LAB BLOOD ORDERABLES Final R esult [facility] [address] Department [place] [address] * (ABNORMAL) CBC without differential (07/18/2020 1:21 AM CDT) WBC 4.3 3.8 - 9.9 K/cumm [facility] Hgb 8.7(L) 13.0 - 17.5 g/dL [facility] Hct 27.8(L) 38.9 - 50.3 % [facility] Plt 158 150 - 400 K/cumm [facility] MPV 9.5 9.1 - 12.3 fL [facility] RBC 3.05(L) 4.30 - 5.80 M/cumm [facility] MCV 91.1 81.3 - 96.4 fL [facility] MCH 28.5 27.1 - 33.3 pg [facility] MCHC 31.3(L) 32.3 - 35.7 g/dL [facility] RDW CV 15.9(H) 11.1 - 14.9 % [facility] RDW SD 51.8(H) 35.7 - 48.1 fL [facility] NRBC abs 0.00 0.00 - 0.01 K/cumm [facility] Blood specimen (specimen) 07/18/2020 1:21 AM CDT 07/18/2020 1:41 AM CDT us Jono LLANOS LAB BLOOD ORDERABLES Final R esult [facility] [address] Department [place] [address] * XR Chest 1 Vw (07/17/2020 2:15 PM CDT) Anatomical Region Laterality Modality Body, Chest N/A Computed Radiogr aphy 07/17/2020 2:18 PM CDT Impressions 07/17/2020 2:18 PM CDT 1. ??Stable enlarged cardiac silhouette. 2. ??Mild pulmonary vascular congestion and pulmonary edema, stable. Electronically signed by: Ky Steinberg M.D. Narrative 07/17/2020 2:18 PM CDT XR CHEST 1 VIEW: 07/17/2020 1:45 PM CLINICAL INDICATION: Pre-op Sternal Wound Exploration. COMPARISON: Chest radiograph dated 06/15/2020. FINDINGS: Interval removal of right central venous catheter compared with prior chest radiograph. ??Postsurgical change from sternotomy and coronary artery bypass. ??Stable enlarged cardiac silhouette and pulmonary vasculature. ??Trachea midline. ??Mild calcification along the aortic arch. ??Faint hazy opacities in both lungs, possibly pulmonary edema, unchanged. ??No new focal consolidation, pleural effusion or pneumothorax. Procedure Note Ky Steinberg MD - 07/17/2020 XR CHEST 1 VIEW: 07/17/2020 1:45 PM CLINICAL INDICATION: Pre-op Sternal Wound Exploration. COMPARISON: Chest radiograph dated 06/15/2020. FINDINGS: Interval removal of right central venous catheter compared with prior chest radiograph. Postsurgical change from sternotomy and coronary artery bypass. Stable enlarged cardiac silhouette and pulmonary vasculature. Trachea midline. Mild calcification along the aortic arch. Faint hazy opacities in both lungs, possibly pulmonary edema, unchanged. No new focal consolidation, pleural effusion or pneumothorax. IMPRESSION: 1. Stable enlarged cardiac silhouette. 2. Mild pulmonary vascular congestion and pulmonary edema, stable. Electronically signed by: Ky Steinberg M.D. us Hernan Cordero MD IMG XR PROCEDURES Final Res ult * eGFR (07/17/2020 1:47 PM CDT) [facility] Signature eGFR 31 mL/min/1.7 3 m2 [facility] Comment: Interpretive Data Reference Interval Normal ?>/= 90 mL/min/1.73m2 Mildly decreased* ? 60 - 89 mL/min/1.73m2 Mildly to moderately decreased ?45 - 59 mL/min/1.73m2 Moderately to severely decreased ??30 - 44 mL/min/1.73m2 Severely decreased ?15 - 29 mL/min/1.73m2 Kidney Failure ?< 15 ??mL/min/1.73m2 *Relative to young adult level Estimated glomerular filtration rate is determined by the CKD-EPI equation recommended by the National Kidney Foundation (KDIGO 2012 Clinical Practice Guideline for the Evaluation and Management of Chronic Kidney Disease. Kidney Intnl Suppl Mar 2012;3:1). The CKD-EPI equation should not be used for patients with unstable renal function and has not been validated in children and those over 70. Current interpretive data was last reviewed 2020 Blood specimen (specimen) 07/17/2020 1:47 PM CDT 07/17/2020 1:52 PM CDT us Hernan Cordero MD LAB BLOOD ORDERABLES Final Result [facility] [address] Department [place] [address] * (ABNORMAL) Differential, auto (07/17/2020 1:47 PM CDT) Neutrophil abs 4.4 1.7 - 6.5 K/cumm [facility] Imm gran abs 0.0 0.0 - 0.1 K/cumm [facility] Lymphocyte abs 0.6(L) 0.8 - 3.3 K/cumm [facility] Monocyte abs 0.4 0.2 - 0.8 K/cumm [facility] Eosinophil abs 0.2 0.0 - 0.5 K/cumm [facility] Basophil abs 0.0 0.0 - 0.1 K/cumm [facility] Neutrophil pct 78.1 % [facility] Comment: Interpretive Data Percent cell count reference ranges are not reported, since discordance with absolute values may lead to misinterpretation of CBC data. Current Interpretive Data was last revised on 2017. Imm gran pct 0.5 % [facility] Comment: Interpretive Data Percent cell count reference ranges are not reported, since discordance with absolute values may lead to misinterpretation of CBC data. Current Interpretive Data was last revised on 2017. Lymphocyte pct 10.6 % [facility] Comment: Interpretive Data Percent cell count reference ranges are not reported, since discordance with absolute values may lead to misinterpretation of CBC data. Current Interpretive Data was last revised on 2017. Monocyte pct 7.7 % [facility] Comment: Interpretive Data Percent cell count reference ranges are not reported, since discordance with absolute values may lead to misinterpretation of CBC data. Current Interpretive Data was last revised on 2017. Eosinophil pct 2.7 % [facility] Comment: Interpretive Data Percent cell count reference ranges are not reported, since discordance with absolute values may lead to misinterpretation of CBC data. Current Interpretive Data was last revised on 2017. Basophil pct 0.4 % [facility] Comment: Interpretive Data Percent cell count reference ranges are not reported, since discordance with absolute values may lead to misinterpretation of CBC data. Current Interpretive Data was last revised on 2017. Blood specimen (specimen) 07/17/2020 1:47 PM CDT 07/17/2020 1:52 PM CDT Hernan Cordero MD LAB BLOOD ORDERABLES Final Result Performing Organization Address [facility] Co de Phone Number [facility] [address] Department of Laboratories [place], [place] [id number] * Type and screen (07/17/2020 1:47 PM CDT) [facility] Liana, indirect Negative [facility] ABO Rh A Positive [facility] Blood specimen (specimen) 07/17/2020 1:47 PM CDT 07/17/2020 2:04 PM CDT Narrative [facility] - 07/17/2020 2:47 PM CDT RECENT BLOOD TRANSFUSION 06/12/20 Has the patient had Daratumumab or Isatuximab in the past 6 months?->No Hernan Cordero MD LAB BLOOD BANK TEST ORDERAB LES Final Result Performing Organization Address [facility] de Phone Number [facility] [address] Department of [employer] [place] [place] [address] * (ABNORMAL) Basic metabolic panel (07/17/2020 1:47 PM CDT) [facility] Sodium 141 135 - 145 mmol/L [facility] Potassium, pl 4.9 3.3 - 4.9 mmol/L [facility] Chloride 105 97 - 110 mmol/L [facility] CO2 24 22 - 32 mmol/L [facility] Anion gap 12 2 - 15 mmol/L [facility] BUN 41(H) 8 - 25 mg/dL [facility] Creatinine 2.14(H) 0.80 - 1.30 mg/dL [facility] Glucose 95 70 - 199 mg/dL [facility] Comment: Interpretive Data Fasting glucose >/= 126 mg/dl is diagnostic for diabetes. ?? Fasting is defined as no caloric intake for at least 8 hours. Fasting glucose between 100 mg/dl to 125 mg/dl is diagnostic of prediabetes. In a patient with classic symptoms of hyperglycemia or hyperglycemic crisis, a random glucose >/= 200 mg/dl is diagnostic for diabetes. In the absence of unequivocal hyperglycemia, results should be confirmed by repeat testing. The classification and Diagnosis of Diabetes Diabetes Care 2017;40 (Suppl. 1):S11. Current interpretive data was last revised 2017. Calcium 9.1 8.5 - 10.3 mg/dL [facility] Blood specimen (specimen) 07/17/2020 1:47 PM CDT 07/17/2020 1:52 PM CDT us Hernan Cordero MD LAB BLOOD ORDERABLES Final Result [facility] [address] Department [place] [address] * (ABNORMAL) CBC with auto differential (07/17/2020 1:47 PM CDT) WBC 5.6 3.8 - 9.9 K/cumm [facility] Hgb 9.0(L) 13.0 - 17.5 g/dL [facility] Hct 28.5(L) 38.9 - 50.3 % [facility] Plt 178 150 - 400 K/cumm [facility] MPV 9.7 9.1 - 12.3 fL [facility] RBC 3.15(L) 4.30 - 5.80 M/cumm [facility] MCV 90.5 81.3 - 96.4 fL [facility] MCH 28.6 27.1 - 33.3 pg [facility] MCHC 31.6(L) 32.3 - 35.7 g/dL [facility] RDW CV 15.9(H) 11.1 - 14.9 % [facility] RDW SD 52.8(H) 35.7 - 48.1 fL [facility] NRBC abs 0.00 0.00 - 0.01 K/cumm [facility] Blood specimen (specimen) 07/17/2020 1:47 PM CDT 07/17/2020 1:52 PM CDT us Hernan Cordero MD LAB BLOOD ORDERABLES Final Result [facility] [address] Department [place] [address] documented in this encounter Visit Diagnoses Diagnosis Non-healing surgical wound, initial encounter- Primary documented in this encounter Administered Medications Inactive Administered Medications - up to 3 most recent administrations Medication Order MAR Action Action Date Dose Rate Site acetaminophen (TYLENOL) tablet 1,000 mg 1,000 mg, oral, Once, On Fri07/17/20 at 1415, For 1 dose, Pre-Op, Indications: Pre-Emptive AnalgesiaIndications:Pre-Emptive Analgesia Given 07/17/2020 2:29 PM CDT 1,000 mg apixaban (ELIQUIS) tablet 5 mg 5 mg, oral, 2 times daily, First dose on Fri07/17/20 at 2100, Nurse to discontinue heparin infusion order and associated bolus at first administration of apixaban using ? order condition met? order source, Indications: VTE ProphylaxisIndications:VTE Prophylaxis Given 07/19/2020 9:09 AM CDT 5 mg Given 07/18/2020 8:19 PM CDT 5 mg Given 07/18/2020 8:27 AM CDT 5 mg aspirin enteric coated tablet 81 mg 81 mg, oral, Daily, First dose on Fri07/17/20 at 2045, Do not crush, chew, cut, dissolve, open or otherwise manipulate tablet/capsule. Given 07/19/2020 9:09 AM CDT 81 mg Given 07/18/2020 8:27 AM CDT 81 mg Given 07/17/2020 9:11 PM CDT 81 mg atorvastatin (LIPITOR) tablet 40 mg 40 mg, oral, Daily, First dose on Fri07/18/20 at 0900 Given 07/19/2020 9:09 AM CDT 40 mg Given 07/18/2020 8:27 AM CDT 40 mg ceFAZolin (ANCEF) 1 gram/10 mL in sterile water (premix) 1,000 mg 1,000 mg, intravenous, at 200 mL/hr, Administer over 3 Minutes, Every 12 hours scheduled, First dose on Fri07/17/20 at 2100, Start 8 hours after miguel-operative dose. , Indications: Prophylaxis, SurgicalIndications:Prophylaxis, Surgical New Bag 07/19/2020 9:10 AM CDT 1,000 mg 200 mL/hr New Bag 07/18/2020 8:19 PM CDT 1,000 mg 200 mL/hr New Bag 07/18/2020 8:27 AM CDT 1,000 mg 200 mL/hr furosemide (LASIX) tablet 40 mg 40 mg, oral, Daily, First dose on Fri07/18/20 at 0900 Given 07/19/2020 9:10 AM CDT 40 mg Given 07/18/2020 8:27 AM CDT 40 mg gabapentin (NEURONTIN) capsule 300 mg 300 mg, oral, 2 times daily, First dose on Fri07/18/20 at 0900, Do not crush, break, or open. Given 07/19/2020 9:19 AM CDT 300 mg Given 07/18/2020 8:19 PM CDT 300 mg Given 07/18/2020 9:41 AM CDT 300 mg HYDROcodone-acetaminophen (NORCO) 5-325 mg per tablet 1 tablet 1 tablet, oral, Every 4 hours PRN, 1st line for pain, Starting on Fri07/17/20 at 2005, Indications: PainIndications:Pain Given 07/19/2020 7:40 AM CDT 1 tablet Given 07/18/2020 8:22 PM CDT 1 tablet Given 07/18/2020 5:34 AM CDT 1 tablet labetaloL (NORMODYNE,TRANDATE) tablet 200 mg 200 mg, oral, 2 times daily, First dose on Fri07/17/20 at 2100 Given 07/19/2020 9:09 AM CDT 200 mg Given 07/18/2020 8:22 PM CDT 200 mg Given 07/18/2020 8:27 AM CDT 200 mg potassium chloride ER (KLOR-CON) extended release tablet 20 mEq 20 mEq, oral, 2 times daily, First dose on Fri07/17/20 at 2100, Do not crush, chew, cut, dissolve, open or otherwise manipulate tablet/capsule. Given 07/19/2020 9:09 AM CDT 20 mEq Given 07/18/2020 8:19 PM CDT 20 mEq Given 07/18/2020 8:27 AM CDT 20 mEq sodium chloride 0.9% flush 0.5-20 mL 0.5-20 mL, intra-catheter, Every 8 hours scheduled, First dose on Fri07/17/20 at 2200, Flush volume based on line type and size. Given 07/19/2020 5:12 AM CDT 10 mL Given 07/18/2020 8:19 PM CDT 10 mL Given 07/18/2020 2:45 PM CDT 10 mL documented in this encounter Discontinued Medications Medication Sig Discontinue Reason Start Date End Da te doxycycline (VIBRAMYCIN) 100 mg capsule Take 1 tablet/capsule (100 mg total) by mouth 2 (two) times a day for 10 days Stop Taking at Discharge 07/13/2020 07/19/2020 documented as of this encounter Active and Recently Administered Medications Times are shown in CDT. Scheduled Medication Order 07/17/2020 07/18/2020 07/19/2020 acetaminophen (TYLENOL) tablet 1,000 mg (COMPLETED) 1,000 mg, oral, Once, On Fri07/17/20 at 1415, For 1 dose, Pre-Op, Indications: Pre-Emptive Analgesia 1429 (Given - Provider: Nemesio Sol RN) apixaban (ELIQUIS) tablet 5 mg 5 mg, oral, 2 times daily, First dose on Fri07/17/20 at 2100, Nurse to discontinue heparin infusion order and associated bolus at first administration of apixaban using ? order condition met? order source, Indications: VTE Prophylaxis 2105 (Given - Provider: Serenity Watkins, [place]) 826 (Given - Provider: Hannah Santamaria RN)2018 (Given - Provider: Serenity Watkins RN) 09 (Given - Provider: Nir Correa RN) aspirin enteric coated tablet 81 mg 81 mg, oral, Daily, First dose on Fri07/17/20 at 2045, Do not crush, chew, cut, dissolve, open or otherwise manipulate tablet/capsule. 2110 (Given - Provider: Serenity Watkins RN) 08 (Given - Provider: Hannah Santamaria RN) 09 (Given - Provider: Nir Correa, [place]) atorvastatin (LIPITOR) tablet 40 mg 40 mg, oral, Daily, First dose on Fri07/18/20 at 0900 0827 (Given - Provider: Hannah Santamaria RN) 09 (Given - Provider: Nir Correa, [place]) ceFAZolin (ANCEF) 1 gram/10 mL in sterile water (premix) 1,000 mg 1,000 mg, intravenous, at 200 mL/hr, Administer over 3 Minutes, Every 12 hours scheduled, First dose on Fri07/17/20 at 2100, Start 8 hours after miguel-operative dose. , Indications: Prophylaxis, Surgical 2105 (New Bag - Provider: Serenity Watkins RN) 826 (New Bag - Provider: Hannah Santamaria RN)2018 (New Bag - Provider: Serenity Watkins RN) 09 (New Bag - Provider: Nir Correa RN) furosemide (LASIX) tablet 40 mg 40 mg, oral, Daily, First dose on Fri07/18/20 at 0900 08 (Given - Provider: Hannah Santamaria RN) 09 (Given - Provider: Nir Correa RN) gabapentin (NEURONTIN) capsule 300 mg 300 mg, oral, 2 times daily, First dose on Fri07/18/20 at 0900, Do not crush, break, or open. 09 (Given - Provider: Hannah Santamaria RN)2018 (Given - Provider: Serenity Watkins RN) 09 (Given - Provider: Nir Correa, [place]) labetaloL (NORMODYNE,TRANDATE) tablet 200 mg 200 mg, oral, 2 times daily, First dose on Fri07/17/20 at 2100 2105 (Given - Provider: Serenity Watkins RN) 08 (Given - Provider: Hannah Santamaria RN)2021 (Given - Provider: Serenity Watkins RN) 09 (Given - Provider: Nir Correa RN) potassium chloride ER (KLOR-CON) extended release tablet 20 mEq 20 mEq, oral, 2 times daily, First dose on Fri07/17/20 at 2100, Do not crush, chew, cut, dissolve, open or otherwise manipulate tablet/capsule. 2105 (Given - Provider: Serenity Watkins RN) 826 (Given - Provider: Hannah Santamaria, RN)2018 (Given - Provider: Serenity Watkins, [place]) 09 (Given - Provider: Nir Correa RN) sodium chloride 0.9% flush 0.5-20 mL 0.5-20 mL, intra-catheter, Every 8 hours scheduled, First dose on Fri07/17/20 at 2200, Flush volume based on line type and size. 2105 (Given - Provider: Serenity Watkins RN) 529 (Given - Provider: Serenity Watkins RN)1444 (Given - Provider: Hannah Santamaria, RN)2018 (Given - Provider: Serenity Watkins RN) 511 (Given - Provider: Serenity Watkins RN) Continuous Medication Order 07/17/2020 07/18/2020 07/19/2020 sodium chloride 0.9% infusion 125 mL/hr, intravenous, Continuous, Starting on Fri07/17/20 at 1630, Phase I 2010 (Stopped - Provider: Serenity Watkins RN) PRN Medication Order 07/17/2020 07/18/2020 07/19/2020 bupivacaine-EPINEPHrine (MARCAINE with EPI) 0.5 %-1:200,000 preservative free injection (CANCELED) As needed, Starting on Fri07/17/20 at 1520, Intra-Op 1520 (Given - Provider: Hernan Cordero MD) ceFAZolin (ANCEF) injection (CANCELED) Administer over 3 Minutes, As needed, Starting on Fri07/17/20 at 1433, Intra-Op 1433 (Given - Provider: Hernan Cordero MD - Comment: PRN on sterile field for irrigation of sternal wound.)1441 (Given - Provider: Michoacano Bonner MD) HYDROcodone-acetaminoph en (NORCO) 5-325 mg per tablet 1 tablet 1 tablet, oral, Every 4 hours PRN, 1st line for pain, Starting on Fri07/17/20 at 2004, Indications: Pain 0534 (Given - Provider: Serenity Watkins, [place])2021 (Given - Provider: Serenity Watkins RN) 0740 (Given - Provider: Nir Correa RN) ondansetron (ZOFRAN) injection 4 mg 4 mg, intravenous, Administer over 2 Minutes, Every 6 hours PRN, nausea, vomiting, Starting on Fri07/17/20 at 2004, Administer no sooner than 6 hours after last dose. , Indications: Nausea and Vomiting sodium chloride 0.9% flush 0.5-20 mL 0.5-20 mL, intra-catheter, As needed, line care, Starting on Fri07/17/20 at 2004, Flush volume based on line type and size. Flush before and after each use. documented in this encounter Orders Medications Ordered That Vignesh ht Not Have Been Administered Count Last Ordered Date First Ordered Date bupivacaine-EPINEPHrine (MAR REID with EPI) 0.5 %-1:200,000 preservative free injection 1 07/17/2020 ceFAZolin (ANCEF) injection 1 07/17/2020 fentaNYL (SUBLIMAZE) preserv ative free injection 50 mcg 1 07/17/2020 naloxone (NARCAN) 0.4 mg/mL injection 0.04-0.4 mg 1 07/17/2020 ondansetron (ZOFRAN) injection 4 mg 1 07/17 sodium chloride 0.9% flush 0.5-20 mL 2 06/29 sodium chloride 0.9% infusion 1 07/17/2020 CORE MEASURES Count Last Ordered Date First Ord ered Date REASON FOR NO VTE PROPHYLAXIS AT ADMISSION 1 07/17/2020 documented in this encounter Care Teams Dancing Instructor Relationship Specialty Start Date End Date Scott Oneill MD PCP - General Internal Medicine 04/27/20 documented as of this encounter
--- OUTSIDE RECORDS SUMMARY | 2024-04-04 01:43 | XMS_ITS | Encounter Summary ---
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 rx [id number] QTY 29 [facility] Indications: neuropathic pain, pain [...] on filedocumented in this encounter Care Teams Mds Rn Relationship Specialty Start Date End Date Scott Oneill MD PCP - General Internal Medicine 04/27/20 documented as of this encounter
--- OUTSIDE RECORDS SUMMARY | 2024-04-04 01:43 | XMS_ITS | Encounter Summary ---
Author Organization [facility] Address [address] [place] [address] Phone Care Team Providers Care Hand Zipper Trimmer Name Role Phone Scott Oneill MD Primary Care Provider [phone]- [phone] Reason for Visit * Auth/Cert Specialty Diagnoses / Procedures Referred By Contac t Referred To Contact Referral ID Status Reason Start Date Expiration Date Visits Re quested Visits Authorized [id number] 1 1 Encounter Details Date Type Department Care Team (Late st Contact Info) Description 08/02/2020 Home Care Visit [facility] Home Health - [address] [place] [id number] Mansi Conroy, RN WOCN CONSULT Social History Tobacco Use Types Packs/Day Years [...] on file 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 Decreased strength, endurance and balance. Elevated fall risk; unable to negotiate steps and/or uneven surfaces independently.Jessica hensley's homebound status 06/17/2020 Active 1 goal linked to scheduled/documen yun intervention 1 goal intervention scheduled/document ed in this visit Monitor patient's vital signs every home health visit Disciplines: Nursing Home Monitor patient's vital signs every home [...] visit during episode of care Description: Home eap clinician to measure vital signs during every home health visit during episode of care. Monitor patient's vital signs every home health visit No Interventions Intervention Associated Problem/Goal Status Variance Visit Notes Homebound Status Description: unable to leave the home without the assistance of another person. Decreased strength, endurance and balance. Elevated fall risk; unable to negotiate steps and/or uneven surfaces independently. Problem:Homebound Status Goal:Patient recieves care at the most appropriate care setting Completed CWON recommendations only, visit not made Monitor Vital Signs Description: Monitor blood pressure, pulse, oxygen saturation, respirations Problem:Monitor patient's vital signs every home health visit Goal:Measure vital signs during every home health visit during episode of care Completed CWON recommendations only, visit not made documented in this encounter Home Health Visit - Actions and Narratives Actions Recieved call from Rocío kennedy RN re: ternal wound. Chart and photo reviewed, recommendaitons made. RN to iam [facility] for [employer]deers and order supplies from [employer] @ [place]. If no progress over next 2 weeks to contact and or CWON for recommendations documented in this encounter Care Teams Hand Zipper Trimmer Relationship Specialty Start Date End Date Scott Oneill MD PCP - General Internal Medicine 04/27/20 documented as of this encounter
--- OUTSIDE RECORDS SUMMARY | 2024-04-04 01:43 | XMS_ITS | Encounter Summary ---
Author Organization [facility] Address [address] [place] [address] Phone Care Team Providers Care Manager Collection Name Role Phone Scott Oneill MD Primary Care Provider [phone]- [phone] Reason for Visit * Auth/Cert Specialty Diagnoses / Procedures Referred By Contac t Referred To Contact Referral ID Status Reason Start Date Expiration Date Visits Re quested Visits Authorized [id number] 1 1 Encounter Details Date Type Department Care Team (Late st Contact Info) Description 07/23/2020 Home Care Visit [facility] Home Health - [address] [address] [address] [place] [phone] Polly Saldaña RN TRAVEL SCREENING CASE COMMUNICATION [...] file 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
--- OUTSIDE RECORDS SUMMARY | 2024-04-04 01:43 | XMS_ITS | Encounter Summary ---
Author Organization [facility] Address [address] [place] [address] Phone Care Team Providers Care Claim Clinician Name Role Phone Scott Oneill MD Primary Care Provider [phone]- [phone] Reason for Visit * Auth/Cert Specialty Diagnoses / Procedures Referred By Rocky t Referred To Contact Referral ID Status Reason Start Date Expiration Date Visits Re quested Visits Authorized [id number] 1 1 Encounter Details Date Type Department Care Team (Late st Contact Info) Description 08/08/2020 8:30 AM CDT Home Care Visit [facility] [address] [address] [address] [place] [address] Polly Saldaña RN SN HOME VISIT Social [...] on file 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 Gender Identity Male 12/24/2023 11:25 AM CDT Sexual Orientation Straight 12/24/2023 11 :25 AM CDT documented as of this encounter Last Filed Vital Signs Vital Sign Reading Time Taken Comments Blood Pressure 132/74 08/08/2020 8:45 AM CDT Pulse 64 08/08/2020 8:45 AM CDT Temperature 36.4 ??C (97.5 ??F) 08/08/2020 8:45 AM CD T Respiratory Rate 20 08/08/2020 8:45 AM CDT Oxygen Saturation 99% 08/08/2020 8:45 AM CDT Inhaled Oxygen Concentration - - Weight 99.8 kg (220 lb) 08/08/2020 8:45 AM CDT Height - - Body Mass Index 36.61 07/17/2020 8:05 PM CDT documented in this encounter Plan of Treatment Not on file documented as of this encounter Visit Diagnoses Not on filedocumented in this encounter Home Health Visit - Care Plan Visit Details Visit Type -SN Home Visit Discipline -Long Term Problems Problem Description Start Date Status Goals Interve ntions Homebound Status Disciplines: Long Term unable to leave the home without the assistance of another person. Decreased strength, endurance and balance. Elevated fall risk; unable to negotiate steps and/or uneven surfaces independently.Tushar johns's homebound status 06/17/2020 Active 1 goal linked to scheduled/docume nted intervention 1 goal intervention scheduled/documen yun in this visit Monitor patient's vital signs every home health visit Disciplines: Long Term Monitor patient's vital signs every home health visit. 06/17/2020 Active 1 goal linked to scheduled/docume nted intervention 1 problem intervention scheduled/documen yun in this visit 1 goal intervention scheduled/documen yun in this visit Wound Care Disciplines: Long Term Wound care needed: wound #4, Chest. 06/17/2020 Active - 1 problem intervention scheduled/documen yun in this visit Wound Risk of Infection Disciplines: Long Term Risk of infections related to wounds 06/17/2020 Active 1 goal linked to scheduled/docume nted intervention 4 goal interventions scheduled/documen yun in this visit Knowledge Deficit - Other Disease Process and Management Disciplines: Long Term Disease process and management, CAD 06/17/2020 Active 1 goal linked to scheduled/docume nted intervention 1 goal intervention scheduled/documen yun in this visit Wound Risk of Infection Disciplines: Long Term, Physical Therapy, Occupational Therapy, Speech Language Pathology Risk of infections related to wounds 07/21/2020 Active 1 goal linked to scheduled/docume nted intervention 1 goal intervention scheduled/documen yun in this visit Goals Goal Associated Problem Outcome Goal Met? Visit Notes Patient recieves care at the most appropriate care setting Description: Patient receives care at the most appropriate care setting. Homebound Status No Measure vital signs during every home health visit during episode of care Description: Home feedmobile driver to measure vital signs during every home [...] - Other Disease Process and Management No Knowledgeable of infection Description: : Patient will remain free of infection and able to recognizes of signs of infection by 08/15/20. Wound Risk of Infection No Interventions Intervention [...] every home health visit Completed weight recorded Perform wound care as instructed by physician Description: wound #4 chest. pt/cg/sn cleanse wound with wound cleanser. pt may shower. pat dry. apply fibrocol to wound bed. cover with allevyn. to be changed every 2-3 days. [facility]lex [facility] office/dalia cha rn Problem:Wound Care Completed Wound care performed Disposal of Dressing Description: Dispose of soiled dressing by place in bag then place in patient's trashcan. Problem:Wound Risk of Infection Goal:Knowledgeable of infection Completed dressing disposed of per agency guidelines Instruct Hand Washing Description: Instruct patient/caregiver on hand wash technique Problem:Wound Risk of Infection Goal:Knowledgeable of infection Completed Instruct patient/family/caregiv er on infection control and safe disposal of dressing materials Description: Instruct patient/caregiver on how to recognized signs and symptoms of infection and when to notify PRINTING TECHNICIAN and/or physician per Wound Education Booklet. Instruct patient/caregiver on infection control measures and how to prevent infections Problem:Wound Risk of Infection Goal:Knowledgeable of infection Completed Patient/caregiver instructed on S&S of infection, proper infection control, and when to notify SN or MD regarding possible infection Instruct on the signs and symptoms of infection Description: Assess wound with each visit for s/sx of infection Problem:Wound Risk of Infection Goal:Knowledgeable of infection Completed no S&S noted Notification of Complications Description: Instruct patient/caregiver when to notify SN/MD of complications Problem:Knowledge Deficit - Other Disease Process and Management Goal:Understanding of disease process Completed Patient instructed on S&S of complications to report to SN or MD, verbalized understanding Instruct on the signs and symptoms of [...] plan for SN instructions and interventions. Patient instructed application support us first procedure documented in this encounter Care Teams Claim Clinician Relationship Specialty Start Date End Date Scott Oneill MD PCP - General Internal Medicine 04/27/20 documented as of this encounter
--- OUTSIDE RECORDS SUMMARY | 2024-04-04 01:43 | XMS_ITS | Encounter Summary ---
Author Organization [facility] Home Care Servic es Address [address] [place] [address] Phone Care Team Providers Care Card Grinder Name Role Phone Scott Oneill MD Primary Care Provider [phone]- [phone] Reason for Visit * Reason Comments Wound Care * Auth/Cert Specialty Diagnoses / Procedures Referred By Contac t Referred To Contact Referral ID Status Reason Start Date Expiration Date Visits Re quested Visits Authorized [id number] 1 1 Encounter Details Date Type Department Care Team (Late st Contact Info) Description 08/02/2020 9:00 AM CDT Home Care Visit [facility] [address] [address] [address] [place] [address] Rocío Ramírez, [facility] HOME VISIT Social History Tobacco Use [...] on file 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 Gender Identity Male 12/24/2023 11:25 AM CDT Sexual Orientation Straight 12/24/2023 11 :25 AM CDT documented as of this encounter Last Filed Vital Signs Vital Sign Reading Time Taken Comments Blood Pressure 140/78 08/02/2020 2:08 PM CDT Pulse 68 08/02/2020 2:08 PM CDT Temperature 36.3 ??C (97.4 ??F) 08/02/2020 2:08 PM CD T Respiratory Rate 18 08/02/2020 2:08 PM CDT Oxygen Saturation 98% 08/02/2020 2:08 PM CDT Inhaled Oxygen Concentration - - Weight - - Height - - Body Mass Index - - documented in this encounter Plan of Treatment Not on file documented as of this encounter Visit Diagnoses Not on filedocumented in this encounter Home Health Visit - Care Plan Visit Details Visit Type -SN Home Visit Discipline -Mcc Problems Problem Description Start Date Status Goals Interventions Homebound Status Disciplines: Mcc unable to leave the home without the assistance of another person. Decreased strength, endurance and balance. Elevated fall risk; unable to negotiate steps and/or uneven surfaces independently.[place] ent's homebound status 06/17/2020 Active 1 goal linked to scheduled/docume nted intervention 1 goal intervention scheduled/documen yun in this visit Medications Disciplines: Mcc Management of home medications 06/17/2020 Active 1 goal linked to scheduled/docume nted intervention 1 goal intervention scheduled/documen yun in this visit Monitor patient's vital signs every home health visit Disciplines: Mcc Monitor patient's vital signs every home health visit. 06/17/2020 Active 1 goal linked to scheduled/docume nted intervention 1 problem intervention scheduled/documen yun in this visit 1 goal intervention scheduled/documen yun in this visit Potential for post-op complications Disciplines: Mcc Patient at risk for post-operative complications 06/17/2020 Active 1 goal linked to scheduled/docume nted intervention 1 goal intervention scheduled/documen yun in this visit Wound Care Disciplines: Mcc Wound care needed: wound #4, Chest. 06/17/2020 Active - 1 problem intervention scheduled/documen yun in this visit Wound Risk of Infection Disciplines: Mcc Risk of infections related to wounds 06/17/2020 Active 1 goal linked to scheduled/docume nted intervention 2 goal interventions scheduled/documen yun in this visit Reduced Circulation - CHF Disciplines: Mcc Reduced circulation 06/18/2020 Active 1 goal linked to scheduled/docume nted [...] visit during episode of care Description: Home electronics commodity manager to measure vital signs during every home health visit during episode of care. Monitor patient's vital signs every home health visit No Compliance and knowledge of post-op complications Description: Patient will achieve optimal health as evidenced by the patient? s compliance with reporting complications by the end of episode of care. Potential for post-op complications No Knowledgeable of infection Description: : Patient [...] setting Completed Patient is homebound due to recent surgery, poor endurance, open wound, generalized weakness. Instruct on High Risk Medications Description: Instruct patient/caregiver on high-risk/high-alert medications, including: anti-convulsant, anti-retroviral, anti-coagulant, chemotherapeutic, hypo-glycemic, immunosuppressant, insulin, and opioid. Problem:Medications Goal:Understand and follow medication therapy Completed instructed on gonzalo . instructed on reason for use, dosage and possible side effects that need to be reported to the dr. understanding expressed. Monitor Vital Signs Description: Monitor blood pressure, pulse, oxygen saturation, respirations Problem:Monitor patient's vital signs every home health visit Goal:Measure vital signs during every home health visit during episode of care Completed Monitor weight Description: patient to weigh daily and record. Problem:Monitor patient's vital signs every home health visit Completed Instruct postop care Description: Instruct patient on signs/symptoms of post-operative complications (wound infection, DVT,UTI, pneumonia). Teach patient to notify Home Care Agency/doctor if tenderness, heat, firmness, localized swelling. sn also instruct pt/cg. weigh daily. no overhead reach. no lifting >10lbs. walk 2-3x's/day, 3-5 minutes at a time adding 1-2 minutes weekly. use I.S. 10x's q 2-3 hours. drink 1.5-2L water daily. Problem:Potential for post-op complications Goal:Compliance and knowledge of post-op complications Completed instructed to follow post op instructions as ordered\. understanding expressed. Wound care Description: wound #4 chest/sternal wound. per Sheldon Smiley RN / Dr. Cordero: wound vac dc'd in office today, 08/01. daily wet to dry dressing , saline soaked gauze, dry gauze, tape , until seen by SN WED 08/02. SN at visit to call Dr. Cordero's office with wound care recommendation. Sherice Remy RN/ROLAN Problem:Wound Care Completed wound care performed as per plan of care until new wound care supplies arrive. Instruct Hand Washing Description: Instruct patient/caregiver on hand wash technique Problem:Wound Risk of Infection Goal:Knowledgeable of infection Completed Instruct on the signs and symptoms of infection Description: Assess wound with each visit for s/sx of infection Problem:Wound Risk of Infection Goal:Knowledgeable of infection Completed instructed pt on s/s of infection that need to be reported to the dr including redness, new open or red areas, increase in pain, foul odor , drainage that is yellow or green, or fever. understanding expressed by pt. Skilled assessment decreased cardiac output Description: Assess for exacerbation of congestive heart failure. Agency standard parameters: MD to be notified if systolic BP at rest <80>160, diastolic BP at rest <50>100, pulse at rest <60>110. SN to review weight log at every visit. Notify MD of increasing edema or shortness of breath. Problem:Reduced Circulation - CHF Goal:Demonstrate optimal circulation Completed documented in this encounter Home Health Visit - Actions and Narratives Actions talked to stephany hudson rn. w ound care recommendation is fibrocol with allevyn dressing to be changed 2-3 times a week depending on drainage. dr cordero called regarding recommended wound care orders. awaiting return call. documented in this encounter Care Teams Card Grinder Relationship Specialty Start Date End Date Scott Oneill MD PCP - General Internal Medicine 04/27/20 documented as of this encounter
--- OUTSIDE RECORDS SUMMARY | 2024-04-04 01:43 | XMS_ITS | Encounter Summary ---
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
--- OUTSIDE RECORDS SUMMARY | 2024-04-04 01:43 | XMS_ITS | Encounter Summary ---
Author Organization [facility] Home Care Servic es Address [address] [place] [address] Phone Care Team Providers Care Senior Research Fellow Name Role Phone Scott Oneill MD Primary Care Provider [phone]- [phone] Reason for Visit * Reason Comments Wound Care * Auth/Cert Specialty Diagnoses / Procedures Referred By Contac t Referred To Contact Referral ID Status Reason Start Date Expiration Date Visits Re quested Visits Authorized [id number] 1 1 Encounter Details Date Type Department Care Team (Late st Contact Info) Description 07/26/2020 9:15 AM CDT Home Care Visit [facility] [address] [address] [address] [place] [address] Rocío Ramírez, [facility] HOME VIS[facility] Social [...] on file 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 Gender Identity Male 12/24/2023 11:25 AM CDT Sexual Orientation Straight 12/24/2023 11 :25 AM CDT documented as of this encounter Last Filed Vital Signs Vital Sign Reading Time Taken Comments Blood Pressure 120/60 07/26/2020 11:35 AM CDT Pulse 68 07/26/2020 11:35 AM CDT Temperature 36.6 ??C (97.8 ??F) 07/26/2020 11:35 AM C DT Respiratory Rate 18 07/26/2020 11:35 AM CDT Oxygen Saturation 98% 07/26/2020 11:35 AM CDT Inhaled Oxygen Concentration - - Weight - - Height - - Body Mass Index - - documented in this encounter Plan of Treatment Not on file documented as of this encounter Visit Diagnoses Not on filedocumented in this encounter Home Health Visit - Care Plan Visit Details Visit Type -SN Home Visit Discipline -Chcf Problems Problem Description Start Date Status Goals Interve ntions Homebound Status Disciplines: Chcf unable to leave the home without the assistance of another person. Decreased strength, endurance and balance. Elevated fall risk; unable to negotiate steps and/or uneven surfaces independently.[place] ent's homebound status 06/17/2020 Active 1 goal linked to scheduled/documen yun intervention 1 goal intervention scheduled/document ed in this visit Monitor patient's vital signs every home health visit Disciplines: Chcf Monitor patient's vital signs every home health visit. 06/17/2020 Active 1 goal linked to scheduled/documen yun intervention 1 problem intervention scheduled/document ed in this visit 1 goal intervention scheduled/document ed in this visit Fall Precautions/S afety Concerns Disciplines: Chcf Alteration in safety 06/17/2020 Active 1 goal linked to scheduled/documen yun intervention 1 goal intervention scheduled/document ed in this visit Pain Disciplines: Chcf Alteration in comfort 06/17/2020 Active 1 goal linked to scheduled/documen yun intervention 1 goal intervention scheduled/document ed in this visit Potential for post-op complications Disciplines: Chcf Patient at risk for post-operative complications 06/17/2020 Active 1 goal linked to scheduled/documen yun intervention 1 goal intervention scheduled/document ed in this visit Wound Risk of Infection Disciplines: Chcf Risk of infections related to wounds 06/17/2020 Active 1 goal linked to scheduled/documen yun intervention 2 goal interventions scheduled/document ed in this visit Wound Care Disciplines: Chcf Wound care needed 07/21/2020 Active 1 goal [...] visit during episode of care Description: 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 Monitor patient's vital signs every home health visit No Demonstrate use of safety precautions Description: Demonstrate use of safety precautions Fall Precautions/Safety Concerns No Report that pain has been reduced or controlled Description: Report that pain has been reduced or controlled Pain No Compliance and knowledge of post-op complications Description: Patient will achieve optimal health as evidenced by the patient? s compliance with reporting complications by the end of episode of care. Potential for post-op complications No Knowledgeable of infection Description: : Patient will remain free of infection and able to recognizes of signs of infection by 06/20/20. Wound Risk of Infection No Progression towards healing Description: Wound show [...] Patient is homebound due to recent surgery, surgical limitations, pain, poor endurance, sob with exertion. Monitor Vital Signs Description: Monitor blood pressure, pulse, oxygen saturation, respirations Problem:Monitor patient's vital signs every home health visit Goal:Measure vital signs during every home health visit during episode of care Completed Monitor weight Description: patient to weigh daily and record. Problem:Monitor patient's vital signs every home health visit Completed instructed to weigh daily and report wt gain of more than 2 pounds in a day for 5 pounds in a week. understanding expressed. [place] Fall Precautions Description: Assess patient safety Problem:Fall Precautions/Safety Concerns Goal:Demonstrate use of safety precautions Completed Instruct on pain management techniques Description: Instruct in pharmacologic and nonpharmacologic pain management techniques. Problem:Pain Goal:Report that pain has been reduced or controlled Completed instructed to report if pain is not relieved to an acceptable level. understanding expressed. Instruct postop care Description: Instruct patient on [...] instructed to follow post op instructions as ordered. understanding expressed. Instruct Hand Washing Description: Instruct patient/caregiver on hand wash technique Problem:Wound Risk of Infection Goal:Knowledgeable of infection Completed instructed on use of good handwashing and gloves when doing wound care. understanding expressed. Instruct on the signs and symptoms of [...] fever. understanding expressed by pt. Skilled assessment wound Description: Full wound assessment including measurement weekly. Wound assessment each visit Problem:Wound Care Goal:Progression towards healing Completed Negative pressure wound therapy Description: Device: [employer] activac Skilled nurse to perform NPWT dressing [...] periwound. Problem:Wound Care Goal:Progression towards healing Completed wound vac applied as per plan of care. pt tolerated well. documented in this encounter Care Teams Senior Research Fellow Relationship Specialty Start Date End Date Scott Oneill MD PCP - General Internal Medicine 04/27/20 documented as of this encounter
--- OUTSIDE RECORDS SUMMARY | 2024-04-04 01:43 | XMS_ITS | Encounter Summary ---
Author Organization [facility] Home Care [facility] es Address [address] [place] [address] Phone Care Team Providers Care Automation Machine Operator Name Role Phone Scott Oneill MD Primary Care Provider [phone]- [phone] Reason for Visit * Auth/Cert Specialty Diagnoses / Procedures Referred By Rocky t Referred To Contact Referral ID Status Reason Start Date Expiration Date Visits Re quested Visits Authorized [id number] 1 1 Encounter Details Date Type Department Care Team (Late st Contact Info) Description 07/28/2020 8:30 AM CDT Home Care Visit [facility] [address] [address] [address] [place] [address] Polly Saldaña RN SN HOME VISIT Social [...] on file 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 Gender Identity Male 12/24/2023 11:25 AM CDT Sexual Orientation Straight 12/24/2023 11 :25 AM CDT documented as of this encounter Last Filed Vital Signs Vital Sign Reading Time Taken Comments Blood Pressure 136/76 07/28/2020 8:54 AM CDT Pulse 64 07/28/2020 8:54 AM CDT Temperature 36.4 ??C (97.5 ??F) 07/28/2020 8:54 AM CD T Respiratory Rate 20 07/28/2020 8:54 AM CDT Oxygen Saturation 98% 07/28/2020 8:54 AM CDT Inhaled Oxygen Concentration - - Weight 99.8 kg (220 lb) 07/28/2020 8:54 AM CDT Height - - Body Mass Index 36.61 07/17/2020 8:05 PM CDT documented in this encounter Plan of Treatment Not on file documented as of this encounter Visit Diagnoses Not on filedocumented in this encounter Home Health Visit - Care Plan Visit Details Visit Type -SN Home Visit Discipline -Custodial Problems Problem Description Start Date Status Goals Interve ntions Homebound Status Disciplines: Custodial unable to leave the home without the assistance of another person. Decreased strength, endurance and balance. Elevated fall risk; unable to negotiate steps and/or uneven surfaces independently.Tushar johns's homebound status 06/17/2020 Active 1 goal linked to scheduled/documen yun intervention 1 goal intervention scheduled/documen yun in this visit Monitor patient's vital signs every home health visit Disciplines: Custodial Monitor patient's vital signs every home health visit. 06/17/2020 Active 1 goal linked to scheduled/documen yun intervention 1 problem intervention scheduled/documen yun in this visit 1 goal intervention scheduled/documen yun in this visit Pain Disciplines: Custodial Alteration in comfort 06/17/2020 Active 1 goal linked to scheduled/documen yun intervention 2 goal interventions scheduled/documen yun in this visit Wound Care Disciplines: Custodial Wound care needed: wound #4, Chest. 06/17/2020 Active - 1 problem intervention scheduled/documen yun in this visit Reduced Circulation - CHF Disciplines: Custodial Reduced circulation 06/18/2020 Active 1 goal linked to scheduled/documen yun intervention 1 goal intervention scheduled/documen yun in this visit Wound Care Disciplines: Custodial Wound care needed 07/21/2020 Active 1 goal linked to scheduled/documen yun intervention 3 goal interventions scheduled/documen yun in this visit Goals Goal Associated Problem Outcome Goal Met? Visit Notes Patient recieves care at the most appropriate care setting Description: Patient receives care at the most appropriate care setting. Homebound Status No Measure vital signs during every home health visit during episode of care Description: Home resource room special education teacher to measure vital signs during every home health visit during episode of care. Monitor patient's vital signs every home health visit No Report that pain has been reduced or controlled Description: Report that pain has been reduced or controlled Pain No Demonstrate optimal circulation Description: Patient will demonstrate optimal cardiac output within disease limitations as evidenced by ability to resume and maintain adapted lifestyle without distress or complications by the end of the episode of care. Agency standard parameters: MD to be notified Reduced Circulation - CHF No Progression towards healing Description: Wound show [...] every home health visit Completed weight recorded in vs Instruct in relaxation strategies Description: Instruct patient/caregiver in relaxation strategies Problem:Pain Goal:Report that pain has been reduced or controlled Completed Patient instructed on relaxation techniques, verbalized understanding Instruct on pain management techniques Description: Instruct in pharmacologic and nonpharmacologic pain management techniques. Problem:Pain Goal:Report that pain has been reduced or controlled Completed Patient instructed on pain management, verbalized understanding Wound care Description: wound #4 chest incision/wound care: sn instruct: pt to shower daily before wound care. let water run over incision/wound. pat dry. pack with Betadine soaked 2x2 gauze. cover with dry gauze and tape. daily and prn dislodgement/drainage. cg to do in SN absence if able. ANA Smiley RN/MM/JN Problem:Wound Care Completed Skilled assessment decreased cardiac output Description: Assess for exacerbation of congestive heart failure. Agency standard parameters: MD to be notified if systolic BP at rest <80>160, diastolic BP at rest <50>100, pulse at rest <60>110. SN to review weight log at every visit. Notify MD of increasing edema or shortness of breath. Problem:Reduced Circulation - CHF Goal:Demonstrate optimal circulation Completed assessment WNL for patient Skilled assessment wound Description: Full wound assessment including measurement weekly. Wound assessment each visit Problem:Wound Care Goal:Progression towards healing Completed wound assessment performed Negative pressure wound therapy Description: Device: [employer] [...] healing Completed Cleanse wound with wound cleanser or NS, pack tunnel or undermining with white foam, apply black foam to wound bed, cover with occlusive drape.. Perform dressing change Description: Perform dressing change: KCI wound vac dressing change 3xweek Problem:Wound Care Goal:Progression towards healing Completed dressing change performed documented in this encounter Home Health Visit - Actions and Narratives Narratives SN arrived to home, greeted by patient, identifed by name and . SN assessment performed, see visit note. Wound assessment and care performed, see wound note. See care plan for interventions and instructions. Patient instructed on measures to reduce edema including elevation of BLE while at rest. Patient instructed events solutions consultant us first procedure, verbalized understanding of all instructions documented in this encounter Care Teams Automation Machine Operator Relationship Specialty Start Date End Date Scott Oneill MD PCP - General Internal Medicine 04/27/20 documented as of this encounter
--- OUTSIDE RECORDS SUMMARY | 2024-04-04 01:43 | XMS_ITS | Encounter Summary ---
Author Organization [facility] Home Care [facility] es Address [address] [place] [address] Phone Care Team Providers Care Wet Process Operator Name Role Phone Scott Oneill MD Primary Care Provider [phone]- [phone] Reason for Visit * Auth/Cert Specialty Diagnoses / Procedures Referred By Contac t Referred To Contact Referral ID Status Reason Start Date Expiration Date Visits Re quested Visits Authorized [id number] 1 1 Encounter Details Date Type Department Care Team (Late st Contact Info) Description 07/23/2020 Home Care Visit [facility] Home Health - [address] [address] [address] [place] [id number] Radha Griffin, RN TELEPHONE ENCOUNTER Social History Tobacco Use [...] on file 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
--- OUTSIDE RECORDS SUMMARY | 2024-04-04 01:43 | XMS_ITS | Encounter Summary ---
Author Organization [facility] Home Care Servic es Address [address] [place] [address] Phone Care Team Providers Care Furnace Combustion Tester Name Role Phone Scott Oneill MD Primary Care Provider [phone] Reason for Visit * Auth/Cert Specialty Diagnoses / Procedures Referred By Rocky t Referred To Contact Referral ID Status Reason Start Date Expiration Date Visits Re quested Visits Authorized [id number] 1 1 Encounter Details Date Type Department Care Team (Latest Contact Info) Description 07/21/2020 9:45 AM CDT Home Care Visit [facility] [address] [address] [address] [place] [address] Polly Saldaña RN SN OASIS RESUMPTION OF CARE Social History Tobacco Use Types Packs/Day Years [...] on file 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 Gender Identity Male 12/24/2023 11:25 AM CDT Sexual Orientation Straight 12/24/2023 11 :25 AM CDT documented as of this encounter Last Filed Vital Signs Vital Sign Reading Time Taken Comments Blood Pressure 132/76 07/21/2020 9:53 AM CDT Pulse 66 07/21/2020 9:53 AM CDT Temperature 36.4 ??C (97.5 ??F) 07/21/2020 9:53 AM CD T Respiratory Rate 20 07/21/2020 9:53 AM CDT Oxygen Saturation 98% 07/21/2020 9:53 AM CDT Inhaled Oxygen Concentration - - Weight 97.5 kg (215 lb) 07/21/2020 9:53 AM CDT Height - - Body Mass Index 35.78 07/17/2020 8:05 PM CDT documented in this encounter Plan of Treatment Not on file documented as of this encounter Visit Diagnoses Not on filedocumented in this encounter Home Health Visit - Care Plan Visit Details Visit Type -SN OASIS Resumpt ion of Care Discipline -Long-Term Problems Problem Description Start Date Status Goals Interve ntions Homebound Status Disciplines: Long-Term unable to leave the home without the assistance of another person. Decreased strength, endurance and balance. Elevated fall risk; unable to negotiate steps and/or uneven surfaces independently.Tushar johns's homebound status 06/17/2020 Active 1 goal linked to scheduled/documen yun intervention 1 goal intervention scheduled/document ed in this visit Monitor patient's vital signs every home health visit Disciplines: Long-Term Monitor patient's vital signs every home health visit. 06/17/2020 Active 1 goal linked to scheduled/documen yun intervention 1 problem intervention scheduled/document ed in this visit 1 goal intervention scheduled/document ed in this visit Infection Prevention Disciplines: Long-Term Infection Prevention 06/17/2020 Resolved on 07/21/2020 1 goal linked to scheduled/documen yun intervention 1 goal intervention scheduled/document ed in this visit Fall Precautions/S afety Concerns Disciplines: Long-Term Alteration in safety 06/17/2020 Active 1 goal linked to scheduled/documen yun intervention 2 goal interventions scheduled/document ed in this visit Pain Disciplines: Long-Term Alteration in comfort 06/17/2020 Active 1 goal linked to scheduled/documen yun intervention 1 goal intervention scheduled/document ed in this visit Wound Risk of Infection Disciplines: Long-Term Risk of infections related to wounds 06/17/2020 Active 1 goal linked to scheduled/documen yun intervention 1 goal intervention scheduled/document ed in this visit Wound Care Disciplines: Long-Term Wound care needed 07/21/2020 Active 1 goal linked to scheduled/docdonnie yun intervention 4 goal interventions scheduled/document ed in this visit Goals Goal Associated Problem Outcome Goal Met? Visit Notes Patient recieves care at the most appropriate care setting Description: Patient receives care at the most appropriate care setting. Homebound Status No Measure vital signs during every home health visit during episode of care Description: Home behavior clinician to measure vital signs during every home health visit during episode of care. Monitor patient's vital signs every home health visit No Verbalize signs of infection Description: Verbalize signs of infection Infection Prevention No Demonstrate use of safety precautions Description: [...] setting Completed Patient is homebound due to weakness, non healing surgical as evidenced by requires assistance from another person to safely leave the home and increased risk of infection. Monitor Vital Signs Description: Monitor blood pressure, pulse, oxygen saturation, respirations Problem:Monitor patient's vital signs every home health visit Goal:Measure vital signs during every home health visit during episode of care Completed Monitor weight Description: patient to weigh daily and record. Problem:Monitor patient's vital signs every home health visit Completed Educate Patient on Infection Prevention Description: Instruct patient on signs and symptoms of infection IE: fever, odor, change in color, increased amount of drainage, purulent drainage, warmth. Problem:Infection Prevention Goal:Verbalize signs of infection Completed High Fall Risk Precautions Description: Instruct patient/caregiver in methods to prevent falls Problem:Fall Precautions/Safety Concerns Goal:Demonstrate use of safety precautions Completed [place] Fall Precautions Description: Assess patient safety Problem:Fall Precautions/Safety Concerns Goal:Demonstrate use of safety precautions Completed Instruct on pain management techniques Description: Instruct in pharmacologic and nonpharmacologic pain management techniques. Problem:Pain Goal:Report that pain has been reduced or controlled Completed Disposal of Dressing Description: Dispose of soiled dressing by place in bag then place in patient's trashcan. Problem:Wound Risk of Infection Goal:Knowledgeable of infection Completed Skilled assessment wound Description: Full wound assessment including measurement weekly. Wound assessment each visit Problem:Wound Care Goal:Progression towards healing Completed Wound Photo Description: Take and transmit wound photo. Problem:Wound Care Goal:Progression towards healing Completed Negative pressure wound therapy Description: Device: VOSS activac Skilled nurse to perform NPWT dressing [...] periwound. Problem:Wound Care Goal:Progression towards healing Completed Perform dressing change Description: Perform dressing change: KCI wound vac dressing change 3xweek Problem:Wound Care Goal:Progression towards healing Completed documented in this encounter Home Health Visit - Actions and Narratives Narratives SN arrived to home, greeted by patient. Patient identified by name and . Medication reconcilation performed, no new medications noted. SN assessment performed, see visit note for details. Patient continues with non healing surgical wound to chest. Patient was hospitalized for wound debridement and now has KCI wound vac. Wound vac dressing removed, one piece of black phone removed scant bloody drainage noted in canister. Wound cleansed with wound cleanser,skin prep applied to periwound, transparent dressing applied to periwound, one piece of black foam applied, covered with transparent dressing, suction applied, wound vac running at 125 mm/hg continous without alarms or warnings. Patient instructed on alternative wound care in the event of wound vac failure or malfunction. Patient isntructred on canister changes. Patient instructed on trouble shooting alarms and warnings. 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 Recommendation: 2 - Someone must help the patient put on upper body clothing. Due to falls risk and nonhealing sternal wound, patient requires human assistance with this activity for safety. M1820 - Ability to Dress Lower Body Documented Answer: 1 - Able to dress lower body without assistance if clothing and shoes are laid out or handed to the patient. Recommendation: 2 - Someone must help the patient put on undergarments, slacks, socks or nylons, and shoes. Clinical documentation reflects a MAHC-10 score greater than or equal to 4- patient is at risk for falls. For the purposes of this OASIS item, assistance includes verbal cuing and/or supervision. Due to falls risk and nonhealing sternal wound, patient requires human assistance with this activity for safety. M1840 - Toilet Transferring Documented Answer: 0 - Able to get to and from the toilet and transfer independently with or without a device. Recommendation: 1 - When reminded, assisted, or supervised by another person, able to get to and from the toilet and transfer. Clinical documentation reflects a MAHC-10 score greater than or equal to 4- patient is at risk for falls. For the purposes of this OASIS item, assistance includes verbal cuing and/or supervision. Due to falls risk and nonhealing sternal wound, patient requires human assistance with this activity for safety. M1850 - Transferring Documented Answer: 0 - Able to independently transfer. Recommendation: 2 - Able to bear weight and pivot during the transfer but unable to transfer self. Clinical documentation reflects a MAHC-10 score greater than or equal to 4- patient is at risk for falls. For the purposes of this OASIS item, assistance includes verbal cuing and/or supervision. Due to falls risk and nonhealing sternal wound, patient requires human assistance with this activity for safety. M1860 - Ambulation/Locomotion Documented Answer: 1 - With the use of a one-handed device (for example, cane, single crutch, howard-walker), able to independently walk on even and uneven surfaces and negotiate stairs with or without railings. Recommendation: 3 - Able to walk only with the supervision or assistance of another person at all times. Clinical documentation reflects a MAHC-10 score greater than or equal to 4- patient is at risk for falls. For the purposes of this OASIS item, assistance includes verbal cuing and/or supervision. Due to falls risk and nonhealing sternal wound, patient requires human assistance with this activity for safety. M1033 - Risk for Hospitalization Documented Answer: 7 - Currently taking 5 or more medications;4 - Multiple emergency department visits (2 or more) in the past 6 months;3 - Multiple hospitalizations (2 or more) in the past 6 months Recommendation: 3 - Multiple hospitalizations (2 or more) in the past 6 months;4 - Multiple emergency department visits (2 or more) in the past 6 months;7 - Currently taking 5 or more medications;9 - Other risk(s) not listed in 1 - 8 Non-healing surgical wound M1845 - Toileting Hygiene Documented Answer: 1 - Able to manage toileting hygiene and clothing management without assistance if supplies/implements are laid out for the patient. Recommendation: 2 - Someone must help the patient to maintain toileting hygiene and/or adjust clothing. Due to falls risk and nonhealing sternal wound, patient requires human assistance with this activity for safety. M2020 - Management of Oral Medications Documented Answer: 0 - Able to independently take the correct oral medication(s) and proper dosage(s) at the correct times. Recommendation: 3 - Unable to take medication unless administered by another person. Due to falls risk and nonhealing sternal wound, patient requires human assistance with this activity for safety. SR3045 - Coding: Safety and Quality of Performance ? If helper assistance is required because patient? s performance is unsafe or of poor quality, score according to amount of assistance provided. Activities may be completed with or without assistive devices. Based on the documentation, human assistance such as verbal cues/steadying was required to complete this activity. Due to falls risk and nonhealing sternal wound, patient requires human assistance with this activity for safety. [id number].C.1 - Toileting Hygiene: The ability to maintain perineal hygiene, adjust clothes before and after voiding or having a bowel movement. If managing an ostomy, include wiping the opening but not managing equipment. Documented Answer: 05. Setup or clean-up assistance ? Madison sets up or cleans up; patient completes activity. Madison assists only prior to or following the activity. Recommendation: 04. Supervision or touching assistance ? Madison provides verbal cues and/or touching/steadying and/or contact guard assistance as patient completes activity. Assistance may be provided throughout the activity or intermittently. IQ8509 JO1480.F.1 - Upper body dressing: The ability to dress and undress above the waist; including fasteners, if applicable. Documented Answer: 05. Setup or clean-up assistance ? Madison sets up or cleans up; patient completes activity. Madison assists only prior to or following the activity. Recommendation: 04. Supervision or touching assistance ? Madison provides verbal cues and/or touching/steadying and/or contact guard assistance as patient completes activity. Assistance may be provided throughout the activity or intermittently. [id number].G.1 - Lower body dressing: The ability to dress and undress below the waist, including fasteners; does not include footwear. Documented Answer: 05. Setup or clean-up assistance ? Madison sets up or cleans up; patient completes activity. Madison assists only prior to or following the activity. Recommendation: 04. Supervision or touching assistance ? Madison provides verbal cues and/or touching/steadying and/or contact guard assistance as patient completes activity. Assistance may be provided throughout the activity or intermittently. [id number] - Mobility: Code the patient? s usual performance at SOC/CHEKO for each activity using the 6-point scale. If activity was not attempted at SOC/CHEKO, code the reason. Code the patient? s discharge goal(s) using the 6-point scale. Use of codes 07, 09, 10 or 88 is permissible to code discharge goal(s). Based on the documentation, human assistance such as verbal cues/steadying was required to complete this activity. Due to falls risk and nonhealing sternal wound, patient requires human assistance with this activity for safety. TM8503 [id number].E.1 - Chair/ein-ka-bfzpa transfer: The ability to transfer to and from a bed to a chair (or wheelchair). Documented Answer: 05. Setup or clean-up assistance ? Madison sets up or cleans up; patient completes activity. Madison assists only prior to or following the activity. Recommendation: 04. Supervision or touching assistance ? Madison provides verbal cues and/or touching/steadying and/or contact guard assistance as patient completes activity. Assistance may be provided throughout the activity or intermittently. [id number].F.1 - Toilet tranfer: The ability to get on and off a toilet or commode. Documented Answer: 05. Setup or clean-up assistance ? Madison sets up or cleans up; patient completes activity. Madison assists only prior to or following the activity. Recommendation: 04. Supervision or touching assistance ? Madison provides verbal cues and/or touching/steadying and/or contact guard assistance as patient completes activity. Assistance may be provided throughout the activity or intermittently. M1028 - Comorbidities and Co-existing Conditions Recommendation: 3 - None of the above M0102 - 07/21/2020 to NA M0104 - Skipped to 07/19/2020 07/26/2020 RENEA Weaver Chart review and recommendations completed by: Robyn Frank [facility], [facility] documented in this encounter Care Teams Furnace Combustion Tester Relationship Specialty Start Date End Date Scott Oneill MD PCP - General Internal Medicine 04/27/20 documented as of this encounter
--- OUTSIDE RECORDS SUMMARY | 2024-04-04 01:43 | XMS_ITS | Encounter Summary ---
Author Organization [facility] Home Care Servic es Address [address] [place] [address] Phone Care Team Providers Care Frit Coater Name Role Phone Scott Oneill MD Primary Care Provider [phone]- [phone] Reason for Visit * Auth/Cert Specialty Diagnoses / Procedures Referred By Contac t Referred To Contact Referral ID Status Reason Start Date Expiration Date Visits Re quested Visits Authorized [id number] 1 1 Encounter Details Date Type Department Care Team (Late st Contact Info) Description 07/20/2020 Home Care Visit [facility] Home Health - [address] [place] [id number] Polly Saldaña RN TRAVEL SCREENING CASE COMMUNICATION [...] on file 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
--- OUTSIDE RECORDS SUMMARY | 2024-04-04 01:43 | XMS_ITS | Encounter Summary ---
Author Organization [facility] Home Care Servic es Address [address] [place] [address] Phone Care Team Providers Care Cement Contractor Name Role Phone Scott Oneill MD Primary Care Provider [phone]- [phone] Reason for Visit * Auth/Cert Specialty Diagnoses / Procedures Referred By Arnoldoac t Referred To Contact Referral ID Status Reason Start Date Expiration Date Visits Re quested Visits Authorized [id number] 1 1 Encounter Details Date Type Department Care Team (Late st Contact Info) Description 08/28/2020 11:00 AM CDT Home Care Visit [facility] [address] [address] [address] [place] [address] Debbie Crane RN SN HOME VISIT Social History Tobacco [...] on file 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 Gender Identity Male 12/24/2023 11:25 AM CDT Sexual Orientation Straight 12/24/2023 11 :25 AM CDT documented as of this encounter Last Filed Vital Signs Vital Sign Reading Time Taken Comments Blood Pressure 132/70 08/28/2020 11:58 AM CDT Pulse 68 08/28/2020 11:57 AM CDT Temperature 36.5 ??C (97.7 ??F) 08/28/2020 11:57 AM C DT Respiratory Rate 18 08/28/2020 11:57 AM CDT Oxygen Saturation 98% 08/28/2020 11:57 AM CDT Inhaled Oxygen Concentration - - [...] scheduled/document ed in this visit Medications Disciplines: Intermediate Management of home medications 06/17/2020 Active 1 goal linked to scheduled/documen yun intervention 2 goal interventions scheduled/document ed in this visit Monitor patient's vital signs every home health visit Disciplines: Intermediate Monitor patient's vital signs every home health visit. 06/17/2020 Active 1 goal linked to scheduled/documen yun intervention 1 problem intervention scheduled/document ed in this visit 1 goal intervention scheduled/document ed in this visit Pain Disciplines: Intermediate Alteration in comfort 06/17/2020 Active 1 goal [...] visit during episode of care Description: Home pre billing clinician to measure vital signs during every [...] steps and/or uneven surfaces independently. Instruct on Medication Management Description: Instruct patient/caregiver in medication administration, purpose, dosages, preparation, scheduling, side effects, food/drug interactions, storage, drug allergies, and potential complications. Problem:Medications Goal:Understand and follow medication therapy Completed Reviewed medications with patient/caregiver apixaban (ELIQUIS) 5 mg tablet Take 5 mg by mouth 2 (two) times a day aspirin 81 mg enteric coated tablet Take 1 tablet (81 mg total) by mouth daily 06/15/2020 06/15/2021 atorvastatin (LIPITOR) 20 mg tablet Take 2 tablets (40 mg total) by mouth daily 06/15/2020 furosemide (LASIX) 40 mg tablet Take 40 mg by mouth daily 03/27/2020 gabapentin (NEURONTIN) 300 mg capsule Take 300 mg by mouth 2 (two) times a day 01/26/2020 labetaloL (NORMODYNE,TRANDATE) 200 mg tablet Take 200 mg by mouth 2 (two) times a day 03/26/2020 potassium chloride ER 20 mEq CR tablet Take 20 mEq by mouth 2 (two) times a day 04/06/2020 traMADoL (ULTRAM) 50 mg tablet Take 50 mg by mouth 2 (two) times a day as needed for pain. rx [id number] QTY 29 [facility] Indications: neuropathic pain, pain Neuropathic Pain, Pain 06/09/2020 Vitamin D2 1,250 mcg (50,000 unit) capsule Take 50,000 Units by mouth once a week On Friday02/11/2020 patient caregiver assist in administering medication to pateint Instruct on High Risk Medications Description: Instruct patient/caregiver on high-risk/high-alert medications, including: anti-convulsant, anti-retroviral, anti-coagulant, chemotherapeutic, hypo-glycemic, immunosuppressant, insulin, and opioid. Problem:Medications Goal:Understand and follow medication therapy Completed instructed on high risk medications eliquis: blood thinner, can cause easy bruising, increased drainage from open wound, blood urine/stool, nose bleeds, bleeding gums, black tarry stool, cold intolerence tramadol: used to treat pain , side effects confusion, headache, nausea, vomiting, dizziness, hypotension, drowsiness, patient verbalized understanding Monitor Vital Signs Description: Monitor blood pressure, pulse, oxygen saturation, respirations Problem:Monitor patient's vital signs every home health visit Goal:Measure vital signs during every home health visit during episode of care Completed Monitor weight Description: patient to weigh daily and record. Problem:Monitor patient's vital signs every home health visit Completed did not weigh today, declined Instruct on pain management techniques Description: Instruct in pharmacologic and nonpharmacologic pain management techniques. Problem:Pain Goal:Report that pain has been reduced or controlled Completed see pain documentation Perform wound care as instructed by physician Description: wound #4 chest. pt/cg/sn cleanse wound with wound cleanser. pt may shower. pat dry. apply fibrocol to wound bed. cover with allevyn. to be changed every 2-3 days. [facility]/dalia cha rn Problem:Wound Care Completed patient showered before nurse visit, pat dry , nurse arrived and applied fibrocol to wound bed, patient refuses allevyn this visit and put a bandaid on wound patient tolerated well changing dressing every 2-3 days in between skilled nurse visits Disposal of Dressing Description: Dispose of soiled dressing by place in bag then place in patient's trashcan. Problem:Wound Risk of Infection Goal:Knowledgeable of infection Completed patient had already removed dressing from mid chest before nurse visit and showered documented in this encounter Care Teams Cement Contractor Relationship Specialty Start Date End Date Scott Oneill MD PCP - General Internal Medicine 04/27/20 documented as of this encounter
--- OUTSIDE RECORDS SUMMARY | 2024-04-04 01:43 | XMS_ITS | Encounter Summary ---
Author Organization [facility] Home Care Servic es Address [address] [place] [address] Phone Care Team Providers Care Machine Binding Folder Name Role Phone Scott Oneill MD Primary Care Provider [phone]- [phone] Reason for Visit * Auth/Cert Specialty Diagnoses / Procedures Referred By Contac t Referred To Contact Referral ID Status Reason Start Date Expiration Date Visits Re quested Visits Authorized [id number] 1 1 Encounter Details Date Type Department Care Team (Late st Contact Info) Description 08/01/2020 Home Care Visit [facility] Home Health - [address] [place] [phone] Shahid East RN TELEPHONE ENCOUNTER Social History [...] on file 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
--- OUTSIDE RECORDS SUMMARY | 2024-04-04 01:43 | XMS_ITS | Encounter Summary ---
Author Organization 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 Gender Identity Male 12/24/2023 11:25 AM CDT Sexual Orientation Straight 12/24/2023 11 :25 AM CDT documented as of this encounter Last Filed Vital Signs Vital Sign Reading Time Taken Comments Blood Pressure 148/72 08/15/2020 12:59 PM CDT Pulse 70 08/15/2020 12:59 PM CDT Temperature - - Respiratory Rate 18 08/15/2020 12:59 PM CDT Oxygen Saturation - - Inhaled Oxygen Concentration - - Weight 101.6 kg (224 lb) 08/15/2020 12:59 PM CDT Height - - Body Mass Index 37.28 07/17/2020 8:05 PM CDT documented in this encounter Patient Instructions * Patient Instructions* Sheldon Giraldo RN - 08/15/2020 1:[address] Cordero has recommended you be seen in the Wound Center here at [facility]. They will be calling to schedule your appointment. We will continue current wound care, with the addition of Nu-gauze strip packing in the area identified. documented in this encounter Progress Notes * Hernan Cordero MD - 08/15/2020 1:00 PM CDT Patient comes in in follow-up of his upper sternal wound superficial infection. Recall that he had a triple bypass, he underwent wound exploration on 07/17, he grew out a light growth of coag negative Staph previously, he has been treated with a wound VAC that was transitioned to superficial wound care. He feels great, no fever chills or constitutional symptoms. We explored the wound in the office, what had previously been red granulation tissue allowed the tip of a Q- tip to tunnel without any deep penetration. The patient had been seen by the home health wound care nurse and been treated with Fibrocol dressing that has been changed 2 to 3 times a week. Because the wound does not look as good as it has looked, we elected to make a referral to the wound Care Center for their input. In the meantime, we packed the small tunnel with Nu Gauze. documented in this encounter Plan of Treatment Not on file documented as of this encounter Visit Diagnoses Diagnosis S/P CABG x 3- Primary Postsurgical aortocoronary bypass status documented in this encounter Care Teams Forcer Maker Relationship Specialty Start Date End Date Scott Oneill MD PCP - General Internal Medicine 04/27/20 documented as of this encounter
--- OUTSIDE RECORDS SUMMARY | 2024-04-04 01:43 | XMS_ITS | Encounter Summary ---
Author Organization [facility] Address [address] [place] [address] Phone Care Team Providers Care Service Vehicle Operator Name Role Phone Scott Oneill MD Primary Care Provider [phone]- [phone] Reason for Visit * Auth/Cert Specialty Diagnoses / Procedures Referred By Contac t Referred To Contact Referral ID Status Reason Start Date Expiration Date Visits Re quested Visits Authorized [id number] 1 1 Encounter Details Date Type Department Care Team (Late st Contact Info) Description 08/07/2020 Home Care Visit [facility] Home Health - [address] [place] [id number] Polly Saldaña RN TRAVEL SCREENING CASE COMMUNICATION [...] on file 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
--- OUTSIDE RECORDS SUMMARY | 2024-04-04 01:43 | XMS_ITS | Encounter Summary ---
Author Organization [facility] Address [address] [place] [address] Phone Care Team Providers Care Director Packaging Name Role Phone Scott Oneill MD Primary Care Provider [phone]- [phone] Reason for Visit * Auth/Cert Specialty Diagnoses / Procedures Referred By Contac t Referred To Contact Referral ID Status Reason Start Date Expiration Date Visits Re quested Visits Authorized [id number] 1 1 Encounter Details Date Type Department Care Team (Late st Contact Info) Description 08/02/2020 Home Care Visit [facility] Home Health - [address] [place] [id number] Rocío Ramírez RN TRAVEL SCREENING CASE COMMUNICATION [...] on file 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
--- OUTSIDE RECORDS SUMMARY | 2024-04-04 01:43 | XMS_ITS | Encounter Summary ---
Author Organization [facility] Address [address] [place] [address] Phone Care Team Providers Care Rope Machine Setter Name Role Phone Scott Oneill MD Primary Care Provider [phone]- [phone] Reason for Visit * Auth/Cert Specialty Diagnoses / Procedures Referred By Rocky t Referred To Contact Referral ID Status Reason Start Date Expiration Date Visits Re quested Visits Authorized [id number] 1 1 Encounter Details Date Type Department Care Team (Latest Contact Info) Description 08/14/2020 10:30 AM CDT Home Care Visit [facility] [place] [address] [address] [place] [address] Polly Saldaña RN SN OASIS RECERTIFICATION Social History Tobacco Use Types Packs/Day Years [...] on file 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 Gender Identity Male 12/24/2023 11:25 AM CDT Sexual Orientation Straight 12/24/2023 11 :25 AM CDT documented as of this encounter Last Filed Vital Signs Vital Sign Reading Time Taken Comments Blood Pressure 146/76 08/14/2020 10:23 AM CDT Pulse 66 08/14/2020 10:23 AM CDT Temperature 36.3 ??C (97.3 ??F) 08/14/2020 10:23 AM C DT Respiratory Rate 20 08/14/2020 10:23 AM CDT Oxygen Saturation 99% 08/14/2020 10:23 AM CDT Inhaled Oxygen Concentration - - Weight 101.6 kg (224 lb) 08/14/2020 10:23 AM CDT Height - - Body Mass Index 37.28 07/17/2020 8:05 PM CDT documented in this encounter Plan of Treatment Not on file documented as of this encounter Visit Diagnoses Not on filedocumented in this encounter Home Health Visit - Care Plan Visit Details Visit Type -SN OASIS Recerti fication Discipline -Long Term Problems Problem Description Start [...] scheduled/documen yun in this visit Medications Disciplines: Long Term Management of home medications 06/17/2020 Active 1 goal linked to scheduled/documen yun intervention 2 goal interventions scheduled/documen yun in this visit Monitor patient's vital signs every home health visit Disciplines: Long Term Monitor patient's vital signs every home health visit. 06/17/2020 Active 1 goal linked to scheduled/documen yun intervention 1 problem intervention scheduled/documen yun in this visit 2 goal interventions scheduled/documen yun in this visit Standardized Guidelines Disciplines: Long Term Standardized Guidelines 06/17/2020 Active 1 goal linked to scheduled/documen yun intervention 1 goal intervention scheduled/documen yun in this visit Pain Disciplines: Long Term Alteration in comfort 06/17/2020 Active 1 goal [...] this visit Reduced Circulation - CHF Disciplines: Long Term Reduced circulation 06/18/2020 Active 1 goal linked [...] visit during episode of care Description: Home yeast maker to measure vital signs during every home [...] Goal:Understand and follow medication therapy Completed Patient verbalized understanding of all medication actions, administration, and adverse reaction Instruct on medication delivery system Description: Instruct patient/caregiver on medication delivery system. Keep up to date medication list with patient Problem:Medications Goal:Understand and follow medication therapy Completed Monitor Vital Signs Description: Monitor blood pressure, pulse, oxygen saturation, respirations Problem:Monitor patient's vital signs every home health visit Goal:Measure vital signs during every home health visit during episode of care Completed VS WNL Supervising Discipline notification of abnormal vital signs Description: Use standardized clinical guidelines of abnormal vitals signs to report to physician. (SBP 90-160, DBP 40-90, O2Sat 88-100%, temporal temp less than 101.5) Problem:Monitor patient's vital signs every home health visit Goal:Measure vital signs during every home health visit during episode of care Completed Dr. Cordero office notified of weight gain Monitor weight Description: patient to weigh daily and record. Problem:Monitor patient's vital signs every home health visit Completed weight obtained Physician notification Description: Use standardized clinical guidelines for notifying physician of abnormal vital signs or clinical findings Problem:Standardized Guidelines Goal:Understanding of when to notify MD in absence of home care staff Completed Patient verbalized knowledge of when to notify MD Instruct on sleep interventions Description: Instruct patient/caregiver in techniques to improve sleep hygiene and sleep quality and/or quantity Problem:Pain Goal:Report that pain has been reduced or controlled Completed Patient instructed on importance of proper sleep related to healing, patient verbalized understanding Perform wound care as instructed by physician Description: wound #4 chest. pt/cg/sn cleanse wound with wound cleanser. pt may shower. pat dry. apply fibrocol to wound bed. cover with allevyn. to be changed every 2-3 days. alex cordero's office/dalia cha rn Problem:Wound Care Completed Wound 4 chest cleansed with wound cleanser, applied fibrocol to wound bed, coverred with allevyn. Patient tolerated well Disposal of Dressing Description: Dispose of soiled dressing by place in bag then place in patient's trashcan. Problem:Wound Risk of Infection Goal:Knowledgeable of infection Completed soiled dressing disposed of per guidelines Instruct on Disease Process Description: Instruct patient/caregiver on disease process and management, CAD. Problem:Knowledge Deficit - Other Disease Process and Management Goal:Understanding of disease process Completed Disease process reviewed with patient, Patient verbalized understanding of disease process Skilled assessment decreased cardiac output Description: Assess for exacerbation of congestive heart failure. Agency standard parameters: MD to be notified if systolic BP at rest <80>160, diastolic BP at rest <50>100, pulse at rest <60>110. SN to review weight log at every visit. Notify MD of increasing edema or shortness of breath. Problem:Reduced Circulation - CHF Goal:Demonstrate optimal circulation Completed MD notified of increased weight and edema documented in this encounter Home Health Visit - Actions and Narratives Narratives SN arrived to home, greeted by spouse. Patient sitting in chair, identified by name and . SN assessment performed, see visit note. Wound assessment performed, see wound assessment. SN phone Dr. Cordero's office, spoke with Zita, notified of increased weight gain, and increased edema to LLL. orders recieved for recertification and to continue current wound care. See careplan for instructions and interventions. Patient instructed loss mitigation specialist us first procedure - Select Data Recommendations: M1242 - Frequency of Pain Interfering Recommendation: 3 - Daily, but not constantly Patient reporting pain at incision site M1324 - Stage of Most Problematic Unhealed Pressure Ulcer that is Stageable Recommendation: NA - Patient has no pressure ulcers or no stageable pressure ulcers No pressure ulcers documented M1820 - Ability to Dress Lower Body Documented Answer: 1 - Able to dress lower body without assistance if clothing and shoes are laid out or handed to the patient. Recommendation: 2 - Someone must help the patient put on undergarments, slacks, socks or nylons, and shoes. Per documentation patient has decreased strength, endurance, and balance. Patient is also a fall risk. Patient would need assistance for safety. M1830 - Bathing Documented Answer: 1 - With the use of devices, is able to bathe self in shower or tub independently including getting in and out of the tub/shower. Recommendation: 3 - Able to participate in bathing self in shower or tub, but requires presence of another person throughout the bath for assistance or supervision. Per documentation patient has decreased strength, endurance, and balance. Patient is also a fall risk. Patient would need assistance for safety. M1840 - Toilet Transferring Documented Answer: 0 - Able to get to and from the toilet and transfer independently with or without a device. Recommendation: 1 - When reminded, assisted, or supervised by another person, able to get to and from the toilet and transfer. Per documentation patient has decreased strength, endurance, and balance. Patient is also a fall risk. Patient would need assistance for safety. M1850 - Transferring Documented Answer: 0 - Able to independently transfer. Recommendation: 2 - Able to bear weight and pivot during the transfer but unable to transfer self. Per documentation patient has decreased strength, endurance, and balance. Patient is also a fall risk. Patient would need assistance for safety. M1860 - Ambulation/Locomotion Documented Answer: 0 - Able to independently walk on even and uneven surfaces and negotiate stairs with or without railings (specifically: needs no human assistance or assistive device). Recommendation: 3 - Able to walk only with the supervision or assistance of another person at all times. Per documentation patient has decreased strength, endurance, and balance. Patient is also a fall risk. Patient would need assistance for safety. RO0780 - Coding: Safety and Quality of Performance ? If helper assistance is required because patient? s performance is unsafe or of poor quality, score according to amount of assistance provided. Activities may be completed with or without assistive devices. Per documentation patient has decreased strength, endurance, and balance. Patient is also a fall risk. Patient would need assistance for safety. CJ9179 YA5803.C.4 - Toileting Hygiene: The ability to maintain [...] be provided throughout the activity or intermittently. M2200 - Number of therapy visits indicated (total of physical, occupational and speech-language pathology combined). Documented Answer: 000 Recommendation: 000 No therapy documented M1033 - Risk for Hospitalization Documented Answer: [...] risk(s) not listed in 1 - 8 Patient has wound M1030 - Therapies Received Recommendation: 4 - None of the above None of the above documented LV3569 - Mobility: Code the patient? s usual performance at SOC/CHEKO for each activity using the 6-point scale. If activity was not attempted at SOC/CHEKO, code the reason. Code the patient? s discharge goal(s) using the 6-point scale. Use of codes 07, 09, 10 or 88 is permissible to code discharge goal(s). Per documentation patient has decreased strength, endurance, and balance. Patient is also a fall risk. Patient would need assistance for safety. MH3118 IE0675.D.4 - Sit to stand: The ability to come to a standing position from sitting in a chair, wheelchair, or on the side of the bed. Documented Answer: 05. Setup or clean-up assistance ? Madison sets up or cleans up; patient completes activity. Madison assists only prior to or following the activity. Recommendation: 04. Supervision or touching assistance ? Madison provides verbal cues and/or touching/steadying and/or contact guard assistance as patient completes activity. Assistance may be provided throughout the activity or intermittently. XC1341 WQ7385.E.4 - Chair/hjx-dj-kmekg transfer: The ability to transfer to and [...] be provided throughout the activity or intermittently. QT2086 ZP8059.F.4 - Toilet tranfer: The ability to get [...] be provided throughout the activity or intermittently. TO5030 BZ1309.I.4 - Walk 10 feet: Once standing, the ability to walk at least 10 feet in a room, corridor, or similar space. If SOC/CHEKO performance is coded 07, 09, 10 or 88, skip to [id number], 1 step (curb) Documented Answer: 05. Setup or clean-up assistance ? Madison sets up or cleans up; patient completes activity. Madison assists only prior to or following the activity. Recommendation: 04. Supervision or touching assistance ? Madison provides verbal cues and/or touching/steadying and/or contact guard assistance as patient completes activity. Assistance may be provided throughout the activity or intermittently. MK2395 DE8272.J.4 - Walk 50 feet with two turns: Once standing, the ability to walk 50 feet and make two turns. Documented Answer: 05. Setup or clean-up assistance ? Madison sets up or cleans up; patient completes activity. Madison assists only prior to or following the activity. Recommendation: 04. Supervision or touching assistance ? Madison provides verbal cues and/or touching/steadying and/or contact guard assistance as patient completes activity. Assistance may be provided throughout the activity or intermittently. VG6450 UY5115.M.4 - 1 step (curb): The ability to go up and down a curb and/or up and down one step. If SOC/CHEKO performance is coded 07, 09, 10 or 88, skip to [id number], Picking up object. Documented Answer: 05. Setup or clean-up assistance ? Madison sets up or cleans up; patient completes activity. Madison assists only prior to or following the activity. Recommendation: 04. Supervision or touching assistance ? Madison provides verbal cues and/or touching/steadying and/or contact guard assistance as patient completes activity. Assistance may be provided throughout the activity or intermittently. Floyd Bautista, 08/17/2020, DPO documented in this encounter Care Teams Rope Machine Setter Relationship Specialty Start Date End Date Scott Oneill MD PCP - General Internal Medicine 04/27/20 documented as of this encounter
--- OUTSIDE RECORDS SUMMARY | 2024-04-04 01:43 | XMS_ITS | Encounter Summary ---
Author Organization [facility] Address [address] [place] [address] Care Team Providers Care Merchandising Professor Name Role Phone Scott Oneill MD Primary Care Provider [phone] Reason for Visit * Reason Onset Date Comments home health visit 08/14/2020 Encounter Details Date Type Department Care Team (Late st Contact Info) Description 08/14/2020 Telephone Cardiovascular and Thoracic Surgery [address] [place] [address] Zita Johnson RN [address] [place] [address] home health visit Social History Tobacco Use Types Packs/Day Years [...] on file 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 She uploaded a picture of his wound into [facility]. Can she resume wound care management? Reviewed this photo and previous photos. Wound bed granulating in nicely and will continue same wound care. Pt coming to office tomorrow for post op check and will eval. Wound at that time. Polly is getting more home health visits approved by insurance to see twice weekly. She noted increased left lower extremity edema and up 4 lbs from last visit. Will evaluate tomorrow and report any changes in treatment after Dr. Cordero sees pt. documented in this encounter Plan of Treatment Not on file documented as of this encounter Visit Diagnoses Not on filedocumented in this encounter Care Teams Merchandising Professor Relationship Specialty Start Date End Date Scott Oneill MD PCP - General Internal Medicine 04/27/20 documented as of this encounter
--- OUTSIDE RECORDS SUMMARY | 2024-04-04 01:43 | XMS_ITS | Encounter Summary ---
Author Organization [facility] Address [address] [place] [address] Phone Care Team Providers Care Commercial Credit Reviewer Name Role Phone Scott Oneill MD Primary Care Provider [phone]- [phone] Reason for Visit * Auth/Cert Specialty Diagnoses / Procedures Referred By Contac t Referred To Contact Referral ID Status Reason Start Date Expiration Date Visits Re quested Visits Authorized [id number] 1 1 Encounter Details Date Type Department Care Team (Late st Contact Info) Description 07/26/2020 Home Care Visit [facility] Home Health - [address] [place] [address] Yudith Murphy, RN TELEPHONE ENCOUNTER Social History Tobacco Use [...] on file 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
--- OUTSIDE RECORDS SUMMARY | 2024-04-04 01:43 | XMS_ITS | Encounter Summary ---
Author Organization [facility] Address [address] [place] [address] Care Team Providers Care Cs Associate Name Role Phone Scott Oneill MD Primary Care Provider [phone] [phone] Encounter Details Date Type Department Care Team (Late st Contact Info) Description 08/02/2020 Telephone Cardiovascular and Thoracic Surgery [address] [place] [address] Skye Hawthorne NP [address] [address] [place] [address] Social History Tobacco Use Types Packs/Day Years [...] on file 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 Will begin today. ----- Message from Dorothy Dao sent at 08/02/2020 2:28 PM CDT ----- Regarding: WOUND CARE/NAPOLEON Contact: ARUN CALLED HH PLEASE CLL REGARDING WOUND CARE THANKS documented in this encounter Plan of Treatment Not on file documented as of this encounter Visit Diagnoses Not on filedocumented in this encounter Care Teams Cs Associate Relationship Specialty Start Date End Date Scott Oneill MD PCP - General Internal Medicine 04/27/20 documented as of this encounter
--- OUTSIDE RECORDS SUMMARY | 2024-04-04 01:44 | XMS_ITS | Encounter Summary ---
Author Organization [facility] Home Care Servic es Address [address] [place] [address] Phone Care Team Providers Care Hand Rug Braider Name Role Phone Scott Oneill MD Primary Care Provider [phone] Reason for Visit * Auth/Cert Specialty Diagnoses / Procedures Referred By Contac t Referred To Contact Referral ID Status Reason Start Date Expiration Date Visits Re quested Visits Authorized [id number] 1 1 Encounter Details Date Type Department Care Team (Late st Contact Info) Description 07/16/2020 Home Care Visit [facility] Home Health - [address] [place] [id number] Rocío Ramírez RN TRAVEL SCREENING CASE COMMUNICATION [...] on file 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
--- OUTSIDE RECORDS SUMMARY | 2024-04-04 01:44 | XMS_ITS | Encounter Summary ---
Author Organization [facility] Home Care Servic es Address [address] [place] [address] Phone Care Team Providers Care Education Professional Name Role Phone Scott Oneill MD Primary Care Provider [phone]- [phone] Reason for Visit * Auth/Cert Specialty Diagnoses / Procedures Referred By Contac t Referred To Contact Referral ID Status Reason Start Date Expiration Date Visits Re quested Visits Authorized [id number] 1 1 Encounter Details Date Type Department Care Team (Late st Contact Info) Description 07/04/2020 12:30 PM CDT Home Care Visit [facility] [address] [place] [address] [address] [place] [address] Britney Aparicio, [facility] Social History Tobacco [...] on file 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 Gender Identity Male 12/24/2023 11:25 AM CDT Sexual Orientation Straight 12/24/2023 11 :25 AM CDT documented as of this encounter Last Filed Vital Signs Vital Sign Reading Time Taken Comments Blood Pressure 130/70 07/04/2020 1:15 PM CDT Pulse 68 07/04/2020 1:15 PM CDT Temperature 36.4 ??C (97.6 ??F) 07/04/2020 1:15 PM CD T Respiratory Rate 20 07/04/2020 1:15 PM CDT Oxygen Saturation 97% 07/04/2020 1:15 PM CDT Inhaled Oxygen Concentration - - Weight 95.7 kg (211 lb) 07/04/2020 1:15 PM CDT Height - - Body Mass Index 35.11 06/19/2020 10:42 AM CDT documented in this encounter Plan of Treatment Not on file documented as of this encounter Visit Diagnoses Not on filedocumented in this encounter Home Health Visit - Care Plan Visit Details Visit Type -SN Home Visit Discipline -Assisted Problems Problem Description Start Date Status Goals Interventions Homebound Status Disciplines: Assisted unable to leave the home without the assistance of another person. Decreased strength, endurance and balance. Elevated fall risk; unable to negotiate steps and/or uneven surfaces independently.[place] ent's homebound status 06/17/2020 Active 1 goal linked to scheduled/docume nted intervention 1 goal intervention scheduled/documen yun in this visit Medications Disciplines: Assisted Management of home medications 06/17/2020 Active 1 goal linked to scheduled/docume nted intervention 2 goal interventions scheduled/documen yun in this visit Monitor patient's vital signs every home health visit Disciplines: Assisted Monitor patient's vital signs every home health visit. 06/17/2020 Active 1 goal linked to scheduled/docume nted intervention 1 problem intervention scheduled/documen yun in this visit 1 goal intervention scheduled/documen yun in this visit Potential for post-op complications Disciplines: Assisted Patient at risk for post-operative complications 06/17/2020 Active 1 goal linked to scheduled/docume nted intervention 1 goal intervention scheduled/documen yun in this visit Wound Care Disciplines: Assisted Wound care needed: wound #1, Left wrist. 06/17/2020 Active 1 goal linked to scheduled/docume nted intervention 1 goal intervention scheduled/documen yun in this visit Wound Care Disciplines: Assisted Wound care needed: wound #4, Chest. 06/17/2020 Active 1 goal linked to scheduled/docume nted intervention 1 goal intervention scheduled/documen yun in this visit Wound Care Disciplines: Assisted Wound care needed 06/17/2020 Active 1 goal linked to scheduled/docume nted intervention 1 goal intervention scheduled/documen yun in this visit Reduced Circulation - CHF Disciplines: Assisted Reduced circulation 06/18/2020 Active 1 goal linked [...] visit during episode of care Description: Home welder pipe making to measure vital signs during every home health visit during episode of care. Monitor patient's vital signs every home health visit No Compliance and knowledge of post-op complications Description: Patient will achieve optimal health as evidenced by the patient? s compliance with reporting complications by the end of episode of care. Potential for post-op complications No Progression towards healing Description: Wound show progression towards healing by 07/08/20. Wound Care No Progression towards healing Description: Wound show progression towards healing by 07/08/20. Wound Care No Progression towards healing Description: Wound show progression towards healing by 07/08/20. Wound Care No Demonstrate optimal circulation Description: Patient will [...] Problem:Medications Goal:Understand and follow medication therapy Completed reviewed all meds with patient, side effects and uses. pt verbalizes good understanding of all meds reviewed. Monitor effectiveness of drug therapy Description: Monitor effectiveness of patient's drug therapy Problem:Medications Goal:Understand and follow medication therapy Completed Monitor Vital Signs Description: Monitor blood pressure, pulse, oxygen saturation, respirations Problem:Monitor patient's vital signs every home health visit Goal:Measure vital signs during every home health visit during episode of care Completed Monitor weight Description: patient to weigh daily and record. Problem:Monitor patient's vital signs every home health visit Completed patient is not weighing. Instruct postop care Description: Instruct patient on [...] Goal:Compliance and knowledge of post-op complications Completed Instruct patient on signs/symptoms of post-operative complications (wound infection, DVT,UTI, pneumonia). Teach patient to notify Home Care Agency/doctor if tenderness, heat, firmness, localized swelling. sn also instruct pt/cg. weigh daily. no overhead reach. no lifting >10lbs. walk 2-3x's/day, 3-5 minutes at a time adding 1-2 minutes weekly. use I.S. 10x's q 2-3 hours. drink 1.5-2L water daily. reviewed all instructions with patient , he verbalizes good understanding. Perform dressing change Description: Wound care, wound #1, left wrist. Clean wound with soap and water daily, Pt may shower. Pat wound dry. Wound may be left open to air. Wound care to be completed daily by Pt or Caregiver daily. SN to complete wound care on SNV days. Problem:Wound Care Goal:Progression towards healing Completed Wound care, wound #1, left wrist. Clean wound with soap and water daily, Pt may shower. Pat wound dry. Wound may be left open to air. Wound care to be completed daily by Pt or Caregiver daily. SN to complete wound care on SNV days. pt continues washing daily and verbalizes good understanding. Perform dressing change Description: Wound care, wound #4, Chest: Clean wound with soap and water daily. Pt may shower. Pat wound dry. Wound care to be completed by Pt or Caregiver. Wound may be left open to air. SN to preform wound care on SNV days. Problem:Wound Care Goal:Progression towards healing Completed Wound care, wound #4, Chest: Clean wound with soap and water daily. Pt may shower. Pat wound dry. Wound care to be completed by Pt or Caregiver. Wound may be left open to air. SN to preform wound care on SNV days. pt continues washing daily and verbalizes good understanding. Skilled assessment wound Description: Full wound assessment including measurement weekly. Wound assessment each visit. Post-op CV Assessment. Please remove any jorge and/or sutures 12-14 days post-op ( week of 06/19/20 ) . Please call Dr. Cordero's office for any post-op concerns. [phone] Problem:Wound Care Goal:Progression towards healing Completed Skilled assessment decreased cardiac output Description: [...] optimal circulation Completed documented in this encounter Care Teams Education Professional Relationship Specialty Start Date End Date Scott Oneill MD PCP - General Internal Medicine 04/27/20 documented as of this encounter
--- OUTSIDE RECORDS SUMMARY | 2024-04-04 01:44 | XMS_ITS | Encounter Summary ---
Author Organization [facility] Medical Group Address [address] [place] [address] Care Team Providers Care Brisket Puller Name Role Phone Scott Oneill MD Primary Care Provider [phone] Reason for Visit * Reason Comments Wound Check Encounter Details Date Type Department Care Team (Late st Contact Info) Description 07/17/2020 12:30 PM CDT Office Visit Cardiovascular and Thoracic Surgery [address] [place] [address] Hernan Cordero MD [address] [facility] [address] [place] [address] S/P CABG x 3 (Primary [...] on file 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 He underwent a coronary artery bypass graft x3 on 06/12/2020, and we saw him last week for an upper sternal wound breakdown that lookedlike a suture reaction. It is been treated conservatively at home, but it was too painful today fordebridement so we scheduled him for admission to the hospital and exploration. Recall that we did have a culture, a true out a light growth of coagulase negative staph. He has been on doxycycline forthis. documented in this encounter Plan of Treatment Not on file documented as of this encounter Visit Diagnoses Diagnosis S/P CABG x 3- Primary Postsurgical aortocoronary bypass status documented in this encounter Discontinued Medications Medication Sig Discontinue Reason Start Date End Da te oxyCODONE-acetaminophen (PERCOCET) 5-325 mg per tabletIndications:Pain Take 1-2 tablets by mouth every 6 (six) hours as needed for pain Therapy completed 06/15/2020 07/17/2020 documented as of this encounter Care Teams Brisket Puller Relationship Specialty Start Date End Date Scott Oneill MD PCP - General Internal Medicine 04/27/20 documented as of this encounter
--- OUTSIDE RECORDS SUMMARY | 2024-04-04 01:44 | XMS_ITS | Encounter Summary ---
Author Organization [facility] Healthcare Address [address] [place] [address] Care Team Providers Care Refrigerator Car Icer Name Role Phone Scott Oneill MD Primary Care Provider [phone] Encounter Details Date Type Department Care Team (Late st Contact Info) Description 07/17/2020 2:37 PM CDT Anesthesia Event [facility] Operating Room [address] [place] [id number] Michoacano Bonner MD [address] [facility] [address] [place] [address] Floyd Lim MD PhD [address] [place] [address] Anesthesia Record Procedure Summary Procedure Name Responsible Anesthesiologist Anesthesia Start Time Anesthesia Stop Time superficialsternal wound exploration. Michoacano Bonner MD 07/17/20 1437 07/17/20 1545 Events Date Time Event Comment 07/17/2020 1437 An Start 1437 In Room 1437 An Start Data 1441 Quick Note O2 via nasal ca nnula at 4L/minute 1510 Proc Start 1522 Proc Fin 1532 Out of Room 1544 Handoff to RN I completed my handoff to the receiving nurse during which we: 1. Patient identified 2. Responsible provider identified 3. Pertinent medical history reviewed 4. Procedure type and surgical course discussed 5. Intraoperative anesthetic management and any significant issues discussed 6. Expectations and concerns for postop period discussed 7. Questions solicited from receiving nurse 8. Patient disposition at the time of handoff: ICU 1545 An Stop Meds Name Total ceFAZolin (ANCEF) injection 2,000 mg propofol 60 mg propofol 193.66 mg fentaNYL PF 50 mcg/mL 100 mcg NS 0.9% 200 mL * Agents Name O2 Isoflurane Inspired Isoflurane * Blood No blood administrations on file. Lines, Drains, and Airways Type Details Placement Removal RETIRED Surgical Site 06/12/20; 0852; Chest; 10/04/20 06/12/20 0852 by Zeyad Joseph RN 10/04/20 0000 by Polly Saldaña RN Peripheral IV Placement Date: 07/17/20; Placement Time: 1400; Catheter Size: 20 G; Orientation: Left, Posterior; Location: Hand; Site Prep: Chlorhexidine; Inserted by: iraj; Insertion Attempts: 2; Patient Tolerance: Tolerated well; Removal Date: 07/19/20; Removal Time: 1400; Removal Reason: Discharge 07/17/20 1400 by Nemesio Sol RN 07/19/20 1400 by Nir Correa RN RETIRED Negative Pressure Wound Therapy 07/17/20; 1521; Charlie Pagan; Surgical wound; Left; Chest; sternal wound; 08/02/20 07/17/20 1521 by Zeyad Joseph RN 08/02/20 0000 by Rocío Ramírez RN documented in this encounter Social History [...] on file 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 Procedure Summary Date: 07/17/20 Room / Location: [facility] / [facility] Anesthesia Start: 1437 Anesthesia Stop: 1545 Procedure: superficialsternal wound exploration. (N/A ) Diagnosis: (STERNAL WOUND) Surgeons: Hernan Cordero MD Responsible Provider: Michoacano Bonner MD Anesthesia Type: MAC ASA Status: 4 - Emergent Anesthesia Type: MAC Last vitals BP 131/62 Pulse 84 Temp 36.6 ??C (97.9 ??F) (Tympanic) Resp 17 SpO2 100% Anesthesia Post Evaluation Patient location during evaluation: PACU Patient participation: complete - patient participated Level of consciousness: fully awake Pain score: 0 Pain management: adequate Airway patency: adequate Anesthetic complications: no Cardiovascular status: acceptable and hemodynamically stable Respiratory status: acceptable and room air Hydration status: acceptable Pt is: normothermic Nausea/Vomiting status: none * Anesthesia Preprocedure Evaluation - Michoacano Bonner MD - 07/17/2020 1:59 PM CDT Images from the original note were not included. Anesthesia Evaluation Britton Nielsen Sr. is a 65 y.o. male Procedure(s): EXPLORATION STERNAL WOUND * No Diagnosis Codes entered * Patient Active Problem List Diagnosis ??? Angina pectoris syndrome (CMS/HCC) ??? Stage 3b chronic kidney disease ??? Family history of early CAD ??? Gastrointestinal hemorrhage associated with peptic ulcer ??? Chronic deep vein thrombosis (DVT) of proximal vein of lower extremity (CMS/HCC) ??? Mixed hyperlipidemia ??? Hypertension ??? S/P CABG x 3 Past Medical History: Diagnosis Date ??? Arthritis ??? Coronary artery disease ??? DVT (deep venous thrombosis) (CMS/HCC) ??? History of transfusion ??? Hyperlipidemia ??? Hypertension ??? Overweight ??? Renal failure ??? Skin cancer ??? Sleep apnea Past Surgical History: Procedure Laterality Date ??? CARDIAC CATHETERIZATION 06/08/2020 ??? CORONARY ARTERY BYPASS GRAFT 06/12/2020 CABG X3 ??? NO PAST SURGERIES No Known Allergies Taking? Last Dose Start Date End Date Provider apixaban (ELIQUIS) 5 mg tablet -- -- Rivera Veras MD aspirin 81 mg enteric coated tablet 06/15/20 06/15/21 Hernan Cordero MD Take 1 tablet (81 mg total) by mouth daily atorvastatin (LIPITOR) 20 mg tablet 06/15/20 -- Hernan Cordero MD Take 2 tablets (40 mg total) by mouth daily doxycycline (VIBRAMYCIN) 100 mg capsule 07/13/20 07/23/20 Skye Hawthorne NP Take 1 tablet/capsule (100 mg total) by mouth 2 (two) times a day for 10 days furosemide (LASIX) 40 mg tablet 03/27/20 -- Rivera Veras MD gabapentin (NEURONTIN) 300 mg capsule 01/26/20 -- Rivera Veras MD HYDROcodone-acetaminophen (NORCO) 5-325 mg per tablet 07/13/20 -- Skye Hawthorne NP Take 2 tablets by mouth every 6 (six) hours as needed for pain labetaloL (NORMODYNE,TRANDATE) 200 mg tablet 03/26/20 -- Rivera Veras MD potassium chloride ER 20 mEq CR tablet 04/06/20 -- Rviera Veras MD Vitamin D2 1,250 mcg (50,000 unit) capsule 02/11/20 -- Rivera Veras MD Ongoing Comment Britney Aparicio RN 06/20/2020 1:13 PM 06/20/20 see Apixaban note. asael page Current Facility-Administered Medications: ??? acetaminophen (TYLENOL) tablet 1,000 mg, 1,000 mg, oral, Once ??? sodium chloride 0.9% flush 0.5-20 mL, 0.5-20 mL, intra-catheter, PRN Social History Tobacco Use Smoking Status Former Smoker Smokeless Tobacco Never Used Substance and Sexual Activity Alcohol Use Yes Comment: 6 beers a year Substance and Sexual Activity Drug Use Not Currently Family History Problem Relation Age of Onset ??? Heart disease Mother ??? Heart disease Father ??? Other (Septic ) Sister ??? Cancer Brother There were no vitals filed for this visit. PT: No results found for requested labs within last 720 hours. INR: No results found for requested labs within last 720 hours. APTT: No results found for requested labs within last 720 hours. Hgb A1C: No results found for requested labs within last 720 hours. CBC RBC: No results found for requested labs within last 720 hours. RDW: No results found for requested labs within last 720 hours. MCHC: No results found for requested labs within last 720 hours. MCH: No results found for requested labs within last 720 hours. MCV: No results found for requested labs within last 720 hours. Hct: No results found for requested labs within last 720 hours. Hgb: No results found for requested labs within last 720 hours. WBC: No results found for requested labs within last 720 hours. MPV: No results found for requested labs within last 720 hours. Platelets: No results found for requested labs within last 720 hours. RDW CV: No results found for requested labs within last 720 hours. RDW Sd: No results found for requested labs within last 720 hours. BMP Glucose: No results found for requested labs within last 720 hours. Calcium: No results found for requested labs within last 720 hours. Sodium: No results found for requested labs within last 720 hours. Potassium: No results found for requested labs within last 720 hours. CO2: No results found for requested labs within last 720 hours. Chloride: No results found for requested labs within last 720 hours. BUN: No results found for requested labs within last 720 hours. Creatinine: No results found for requested labs within last 720 hours. DOS Physical Exam Medical history, medications, and allergies reviewed. Attestation: This PAT evaluation 07/17/2020. Airway Exam: Jaw ROM: full Cardiovascular Exam: Negative for Murmur Pulmonary Exam: LCTA, bilat Dental Exam: Appears intact Current state: Patient's current state is cooperative and interactive. Anesthesia Plan ASA 4- emergent Planned anesthesia: MAC Postoperative Plan: Postoperative administration opioids intended. No postoperative mechanical ventilation intended. Patient's planned disposition post procedure is Floor. Informed Consent: Anesthesia plan and risks discussed with patient and spouse. Consent and Attending signature: I and/or my designee have discussed the anesthesia plan, benefits, possible alternatives, parental presence at time of induction (if indicated), and clinically relevant risks that may include dental injury, unintentional awareness, and/or other complications. The patient and/or parent/legal guardian understand, and agree to proceed. All questions answered. documented in this encounter Plan of Treatment Not on file documented as of this encounter Visit Diagnoses Not on filedocumented in this encounter Administered Medications Inactive Administered Medications - up to 3 most recent administrations Medication Order MAR Action Action Date Dose Rate Site ceFAZolin (ANCEF) injection Administer over 3 Minutes, As needed, Starting on Fri07/17/20 at 1433, Intra-Op Given 07/17/2020 2:41 PM CDT 2,000 mg Given 07/17/2020 2:33 PM CDT 1,000 mg Loo rgical Site fentaNYL (SUBLIMAZE) preservative free injection intravenous, As needed, Starting on Fri07/17/20 at 1459, Anesthesia Intra-op Given 07/17/2020 3:11 PM CDT 50 mcg Given 07/17/2020 2:59 PM CDT 50 mcg propofoL (DIPRIVAN) 10 mg/mL IV intravenous, As needed, Starting on Fri07/17/20 at 1443, Anesthesia Intra-op Given 07/17/2020 3:11 PM CDT 20 mg Given 07/17/2020 3:06 PM CDT 10 mg Given 07/17/2020 2:54 PM CDT 10 mg propofoL (DIPRIVAN) 10 mg/mL IV intravenous, Continuous PRN, Starting on Fri07/17/20 at 1443, Anesthesia Intra-op Rate/Dose Change 07/17/2020 3:20 PM CDT 30 mcg/kg/min 17.046 mL/hr Rate/Dose Change 07/17/2020 3:06 PM CDT 60 mcg/kg/min 34.0 92 mL/hr Rate/Dose Change 07/17/2020 2:48 PM CDT 50 mcg/kg/min 28.4 1 mL/hr sodium chloride 0.9% infusion intravenous, Continuous PRN, Starting on Fri07/17/20 at 1437, Anesthesia Intra-op New Bag 07/17/2020 2:37 PM CDT documented in this encounter Care Teams Refrigerator Car Icer Relationship Specialty Start Date End Date Scott Oneill MD PCP - General Internal Medicine 04/27/20 documented as of this encounter
--- OUTSIDE RECORDS SUMMARY | 2024-04-04 01:44 | XMS_ITS | Encounter Summary ---
Author Organization [facility] Home Care Servic es Address [address] [place] [address] Phone Care Team Providers Care Buttonhole Machine Operator Name Role Phone Scott Oneill MD Primary Care Provider [phone] Reason for Visit * Auth/Cert Specialty Diagnoses / Procedures Referred By Contac t Referred To Contact Referral ID Status Reason Start Date Expiration Date Visits Re quested Visits Authorized [id number] 1 1 Encounter Details Date Type Department Care Team (Late st Contact Info) Description 07/15/2020 Home Care Visit [facility] Home Health - [address] [place] [id number] Rocío Ramírez RN TRAVEL SCREENING CASE COMMUNICATION [...] on file 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
--- OUTSIDE RECORDS SUMMARY | 2024-04-04 01:44 | XMS_ITS | Encounter Summary ---
Author Organization [facility] Address [address] [place] [address] Care Team Providers Care Irrigator Head Name Role Phone Scott Oneill MD Primary Care Provider [phone] Reason for Visit * Reason Comments Wound Check Encounter Details Date Type Department Care Team (Late st Contact Info) Description 07/12/2020 12:30 PM CDT Office Visit Cardiovascular and Thoracic Surgery [address] [place] [address] Hernan Cordero MD [address] [facility] [place] [address] Wound of sternal region (Primary Dx) Social History Tobacco Use Types [...] on file 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 Gender Identity Male 12/24/2023 11:25 AM CDT Sexual Orientation Straight 12/24/2023 11 :25 AM CDT documented as of this encounter Last Filed Vital Signs Vital Sign Reading Time Taken Comments Blood Pressure 128/74 07/12/2020 12:13 PM CDT Pulse 76 07/12/2020 12:13 PM CDT Regu lar Temperature - - Respiratory Rate 18 07/12/2020 12:13 PM CDT Oxygen Saturation - - Inhaled Oxygen Concentration - - Weight 95.3 kg (210 lb) 07/12/2020 12:13 PM CDT Height - - Body Mass Index 34.95 07/07/2020 12:20 PM CDT documented in this encounter Patient Instructions * Patient Instructions* Sheldon Giraldo RN - 07/12/2020 12:[address] Cordero would like to see you tomorrow at 12:30 pm Today we have cultured your wound. Please take the culture specimen to the lab today. documented in this encounter Progress Notes * Hernan Cordero MD - 07/12/2020 12:30 PM CDT Patient send us a picture of his sternal wound, there was some blistering of the upper aspect, we asked him to come to the office. On physical examination, he is afebrile, his vital signs are stable.We opened up an approximately 4 cm area of his sternal wound and got clear yellow effluent, which was cultured. The sternal bone was not exposed, the wound was packed with Betadine-soaked gauze and the patient is to return to the clinic tomorrow for a repeat wound examination. The culture is pending at the time I write this note. documented in this encounter Plan of Treatment Not on file documented as of this encounter Results * (ABNORMAL) Aerobic and anaerobic culture and gram stain Wound Sternum (07/12/2020 1:49 PM CDT) Direct Specimen Exam Stain: No polymorphonuclear leukocytes seen. No organisms seen. [facility] Report Final Report: Very light growth Coagulase negative Staphylococcus species Susceptibility not performed on this isolate (.) [facility] Organism COAGULASE NEGATIVE STAPHYLOCOCCUS SPECIES [facility] Wound (Sternum) 07/12/2020 1 :49 PM CDT 07/12/2020 2:02 PM CDT Narrative [facility] - 07/15/2020 11:15 AM CDT Specimen received on aerobic swab only. For optimal recovery of anaerobic organisms, sample should be collected using anaerobic transport media (eSWAB). Hernan Cordero MD LAB MICROBIOLOGY - GENERAL ORDERABLES Final Result [facility] [address] Department [place] [address] documented in this encounter Visit Diagnoses Diagnosis Wound of sternal region- Primary Wound of sternal region documented in this encounter Care Teams Irrigator Head Relationship Specialty Start Date End Date Scott Oneill MD PCP - General Internal Medicine 04/27/20 documented as of this encounter
--- OUTSIDE RECORDS SUMMARY | 2024-04-04 01:44 | XMS_ITS | Encounter Summary ---
Author Organization [facility] Address [address] [place] [address] Phone Care Team Providers Care Sole Layer Name Role Phone Scott Oneill MD Primary Care Provider [phone] Reason for Visit * Reason Comments Wound Care * Auth/Cert Specialty Diagnoses / Procedures Referred By Contac t Referred To Contact Referral ID Status Reason Start Date Expiration Date Visits Re quested Visits Authorized [id number] 1 1 Encounter Details Date Type Department Care Team (Late st Contact Info) Description 07/16/2020 9:00 AM CDT Home Care Visit 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 Decreased strength, endurance and balance. Elevated fall risk; unable to negotiate steps and/or uneven surfaces independently.[place] ent's homebound status 06/17/2020 Active 1 goal linked to scheduled/docume nted intervention 1 goal intervention scheduled/documen yun in this visit Medications Disciplines: Mcfp Management of home medications 06/17/2020 Active 1 [...] scheduled/documen yun in this visit Pain Disciplines: Mcfp Alteration in comfort 06/17/2020 Active 1 goal linked to scheduled/docume nted intervention 1 goal intervention scheduled/documen yun in this visit Potential for post-op complications Disciplines: Mcfp Patient at risk for post-operative complications 06/17/2020 Active 1 goal linked to scheduled/docume nted intervention 1 goal intervention scheduled/documen yun in this visit Wound Care Disciplines: Mcfp Wound care needed: wound #4, Chest. 06/17/2020 Active - 1 problem intervention scheduled/documen yun in this visit Wound Risk of Infection Disciplines: Mcfp Risk of infections related to wounds 06/17/2020 Active 1 goal linked to scheduled/docume nted intervention 1 goal intervention scheduled/documen yun in this visit Reduced Circulation - CHF Disciplines: Mcfp Reduced circulation 06/18/2020 Active 1 goal linked [...] visit during episode of care Description: Home medical technical writer to measure vital signs during every home [...] Patient is homebound due to recent surgery, open wound, pain, risk for falls, poor endurance Instruct on High Risk Medications Description: Instruct patient/caregiver on high-risk/high-alert medications, including: anti-convulsant, anti-retroviral, anti-coagulant, chemotherapeutic, hypo-glycemic, immunosuppressant, insulin, and opioid. Problem:Medications Goal:Understand and follow medication therapy Completed instructed on gonzalo and morgan. instructed on reason for use, dosage and possible side effects. instructed on s/s of bleeding or unusual bruising that need to be reported to the dr. understanding expressed. Monitor Vital Signs Description: Monitor blood pressure, pulse, oxygen saturation, respirations Problem:Monitor patient's vital signs every home health visit Goal:Measure vital signs during every home health visit during episode of care Completed Monitor weight Description: patient to weigh daily and record. Problem:Monitor patient's vital signs every home health visit Completed Instruct on pain management techniques Description: Instruct in pharmacologic and nonpharmacologic pain management techniques. Problem:Pain Goal:Report that pain has been reduced or controlled Completed instructed to report increase in pain or if pain is not relieved to an [...] post op instructions as ordered. understanding expressed. Wound care Description: wound #4 chest incision/wound care: sn instruct: pt to shower daily before wound care. let water run over incision/wound. pat dry. pack with Betadine soaked 2x2 gauze. cover with dry gauze and tape. daily and prn dislodgement/drainage. cg to do in SN absence if able. ANA Smiley RN/MM/JN Problem:Wound Care Completed Instruct on the signs and symptoms [...] Completed documented in this encounter Care Teams Sole Layer Relationship Specialty Start Date End Date Scott Oneill MD PCP - General Internal Medicine 04/27/20 documented as of this encounter
--- OUTSIDE RECORDS SUMMARY | 2024-04-04 01:44 | XMS_ITS | Encounter Summary ---
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 Gender Identity Male 12/24/2023 11:25 AM CDT Sexual Orientation Straight 12/24/2023 11 :25 AM CDT documented as of this encounter Discharge Disposition Disposition Code Departure Means Destination Discharge to home or self care documented in this encounter Plan of Treatment Not on file documented as of this encounter Procedures Procedure Name Priority Date/Time Associated Diagnosis Comments AEROBIC AND ANAEROBIC CULTURE AND GRAM STAIN Routine 07/12/2020 1:49 PM CDT Wound of sternal region documented in this encounter Results * (ABNORMAL) Aerobic and anaerobic culture and gram stain Wound Sternum (07/12/2020 1:49 PM CDT) Direct Specimen Exam Stain: No polymorphonuclear leukocytes seen. No organisms seen. [facility] Report Final Report: Very light growth Coagulase negative Staphylococcus species Susceptibility not performed on this isolate (.) [facility] Organism COAGULASE NEGATIVE STAPHYLOCOCCUS SPECIES [facility] Wound (Sternum) 07/12/2020 1 :49 PM CDT 07/12/2020 2:02 PM CDT Narrative [facility] - 07/15/2020 11:15 AM CDT Specimen received on aerobic swab only. For optimal recovery of anaerobic organisms, sample should be collected using anaerobic transport media (eSWAB). us Hernan Cordero MD LAB MICROBIOLOGY - GENERAL ORDERABLES Final Result [facility] [address] [place] [address] documented in this encounter Visit Diagnoses Diagnosis Wound of sternal region documented in this encounter Care Teams Blow Molding Machine Operator Relationship Specialty Start Date End Date Scott Oneill MD PCP - General Internal Medicine 04/27/20 documented as of this encounter
--- OUTSIDE RECORDS SUMMARY | 2024-04-04 01:44 | XMS_ITS | Encounter Summary ---
Author Organization [facility] Healthcare Address [address] [place] [address] Care Team Providers Care Customer Retention Specialist Name Role Phone Scott Oneill MD Primary Care Provider [phone] Encounter Details Date Type Department Care Team (Latest Contact Info) Description 07/17/2020 2:30 PM CDT - 07/17/2020 4:15 PM CDT Surgery [facility] [address] [place] [phone] Hernan Cordero MD [address] [place] [address] superficialsternal wound exploration. Surgery Details Date/Time Status Location OR Service Patient Class Case Class Case Type Trauma Case? 07/17/2020 2:30 PM Posted [facility] OPERATING ROOM OR Cardiothoracic Surgery Admit Urgent - 24 hours Panel 1 Procedure LRB Anes Op Region Wound Class Comments superficialsternal wound exploration. N/A Choice Class IV - Dirty or Infected Surgeon Surgeon Role Service Panel Hernan Cordero MD Primary Cardiothoracic 1 documented in this encounter Social History [...] on file Legal Sex Male 1:23 AM DINKEY BRAKEMAN Gender Identity Male 12/24/2023 11:25 AM CDT Sexual Orientation Straight 12/24/2023 11 :25 AM CDT documented as of this encounter Last Filed Vital Signs Vital Sign Reading Time Taken Comments Blood Pressure 138/66 07/17/2020 4:15 PM CDT Pulse 56 07/17/2020 4:15 PM CDT Temperature 36.6 ??C (97.9 ??F) 07/17/2020 2:19 PM CD T Respiratory Rate 15 07/17/2020 4:15 PM CDT Oxygen Saturation 99% 07/17/2020 4:15 PM CDT Inhaled Oxygen Concentration - - Weight 94.7 kg (208 lb 12.4 oz) 07/17/2020 2:19 PM CDT Height - - Body Mass Index 36.03 07/17/2020 8:05 PM CDT documented in this encounter Discharge Summaries * Hernan Cordero MD - 07/19/2020 1:30 PM CDT Inpatient Discharge Summary BRIEF OVERVIEW Admitting Provider: Hernan Cordero MD Discharge Provider: No att. providers found Primary Care Physician at Discharge: Scott Oneill MD [phone] Admission Date: 07/17/2020 Discharge Date: 07/19/2020 Ad[facility] Problems/Diagnoses: Principal Problem: Non-healing upper sternal wound Secondary Problems: Multivessel coronary artery disease with accelerating angina, s/p CABG x 3 on 06/12/20 Hypertension Hyperlipidemia CKD stage 3b Obesity Hx of DVT Obesity Sleep apnea Peptic ulcer disease with prior embolization of the gastroduodenal artery in 2017 DETAILS OF HOSPITAL STAY Presenting Problem/History of Present Illness: Britton Nielsen Vinnie is a 65 y.o. male presenting with [...] Service Line: Home Health Primary disciplines requested: [facility]: Wound/ Ostomy Care Physician [...] tape. Please call Dr. Cordero for concerns [phone] I attest that I or another qualified [...] 11:45 AM Kathrin Austin MD MG CAR JENNIFER MG Deceraciel Contact Information for Follow-ups [facility] Home Care Services Specialty: Home Health and Hospice [address] [facility] [address] [facility] [address] Next Steps: Follow up Questions: Service Line: Home Health Primary disciplines requested: [facility]: Wound/ Ostomy Care Physician [...] tape. Please call Dr. Cordero for concerns [phone] I attest that I or another qualified [...] Specialty: Internal Medicine Relationship: PCP - General [address] [place] [id number] Next Steps: Follow up Addendum: Wound examined [...] a day as needed for pain. rx [id number] QTY 29 [facility] Indications: neuropathic pain, pain [...] is 2 days. 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 Objective Past Medical [...] Breakfast and Dinner Question: Select Supplement: Answer: Levi - Any Flavor 07/18/20 1447 07/17/202005 Adult Diet Special; Low Fat, Low Chol, Low Na Diet effective now Question Answer Comment ([facility]) Diet type Special Fat / Sodium [...] Type of Weight Used for Estimated Kcals: [place] Kcal/k Total Kcal/kg Estimated Needs : 1665.9 [...] discomfort at the wound vac site, but [place] helps control the pain. His is otherwise [...] 4.3 07/18/2020 0121 HGB 8.7 (L) 07/18/2020 0121 HGB 9.0 (L) 06/12/2020 1241 HCT 27.8 (L) 07/18/2020 0121 LABPLAT 158 07/18/2020 0121 SODIUM 141 07/18/2020 0121 POTASSIUM 4.3 07/18/2020 0121 CHLORIDE 108 07/18/2020 0121 CO2 24 07/18/2020 0121 ANIONGAP 9 07/18/2020 0121 BUNSER 37 (H) 07/18/2020 0121 [...] embolization of the gastroduodenal artery in 2017 Plan ?? Maintain wound vac with plans to do wound vac change tomorrow with wound care team, continue IV Ancef ?? ASA and Eliquis for anticoagulation ?? Continue home medication regimen of Labetalol, Lipitor, Lasix ?? [place] and Gabapentin for pain control ?? DVT [...] by mouth 2 (two) times a day Provider, MD Rivera aspirin 81 mg enteric coated tablet Take [...] by mouth once a week On Friday02/11/20 Rivera Veras MD oxyCODONE-acetaminophen (PERCOCET) 5-325 mg per tablet [...] kids to a father who was a chainsaw mechanic, has a beagle named Shanel. Review of [...] mm/hg continuously. Patient stated understanding. Talked with CYLINDER VALVE REPAIRER. documented in this encounter Nursing Notes * Mary Beth Waller RN - 07/19/2020 8:15 AM CDT Images from the original note were not included. 07/19/20 0806 Surgical Site 06/12/20 Chest Date First Assessed/Time First Assessed: 06/12/20 0852 Location: Chest Site Assessment Red;[place];Yellow;Fragile;Granulation tissue Miguel-wound Assessment Blanchable erythema;Fragile;Painful Closure Unapproximated [...] 1:37 PM CDT Contacted Libra Still Wound creping machine operator Regarding patients home wound vac. Per Libra, still awaiting insurance authorization for home wound vac. Patient and Nir Law RN updated regarding above. * Plan of Care - Addison Armstrong RN - 07/19/2020 12:47 PM CDT Home Health order and CM note reviewed, I am arranging Resume of [facility] [phone], plan Skilled Nurse visit on Friday 07/21 [...] care consult ordered. Notified Libra Still Wound creping machine operator of plans for home wound vac. Libra Still Will initiate request for home wound vac authorization with patients insurance. Patient informed of above and agreeable with plan. Home health care orders received. Patient declined [facility] agency choice list and has chosen [facility]. Case management will continue to monitor [...] to PCU * Op Note - Hernan Crodero MD - 07/17/2020 8:05 AM CDT OPERATIVE REPORT SURGEON Hernan Cordero MD COMMUNICATION ELECTRONIC TECHNICIAN ROSE Iqbal PREOPERATIVE DIAGNOSES Nonhealing upper sternal [...] Results * eGFR (07/18/2020 1:21 AM CDT) [facility] eGFR 34 mL/min/1.7 3 m2 [facility] Comment: Interpretive Data Reference Interval Normal ?>/= [...] 1:21 AM CDT 07/18/2020 1:41 AM CDT Jono LLANOS LAB BLOOD ORDERABLES Final R esult Performing Organization Address City/[facility]/ZIP Co de Phone Number [facility] [address] [place] [address] * (ABNORMAL) Basic metabolic panel (07/18/2020 1:21 AM CDT) [facility] Sodium 141 135 - 145 mmol/L [facility] Potassium, pl 4.3 3.3 - 4.9 mmol/L [facility] Chloride 108 97 - 110 mmol/L [facility] CO2 24 22 - 32 mmol/L [facility] Anion gap 9 2 - 15 mmol/L [facility] BUN 37(H) 8 - 25 mg/dL [facility] Creatinine 2.00(H) 0.80 - 1.30 mg/dL [facility] Glucose 112 70 - 199 mg/dL [facility] Comment: Interpretive Data Fasting glucose >/= 126 [...] 2017. Calcium 8.7 8.5 - 10.3 mg/dL [facility] Blood specimen (specimen) 07/18/2020 1:21 AM CDT 07/18/2020 1:41 AM CDT Jono LLANOS LAB BLOOD ORDERABLES Final R esult Performing Organization Address [facility]/ZIP Co de Phone Number [facility] [address] Department [employer] [place], [place] [phone] * (ABNORMAL) CBC without differential (07/18/2020 1:21 AM CDT) WBC 4.3 3.8 - 9.9 K/cumm [facility] Hgb 8.7(L) 13.0 - 17.5 g/dL [facility] Hct 27.8(L) 38.9 - 50.3 % [facility] Plt 158 150 - 400 K/cumm [facility] MPV 9.5 9.1 - 12.3 fL [facility] RBC 3.05(L) 4.30 - 5.80 M/cumm [facility] MCV 91.1 81.3 - 96.4 fL [facility] MCH 28.5 27.1 - 33.3 pg [facility] MCHC 31.3(L) 32.3 - 35.7 g/dL [facility] RDW CV 15.9(H) 11.1 - 14.9 % [facility] RDW SD 51.8(H) 35.7 - 48.1 fL [facility] NRBC abs 0.00 0.00 - 0.01 K/cumm [facility] Blood specimen (specimen) 07/18/2020 1:21 AM CDT 07/18/2020 1:41 AM CDT us Jono LLANOS LAB BLOOD ORDERABLES Final R esult [facility] [address] Department [place] [address] * XR Chest 1 Vw (07/17/2020 2:15 [...] stable. Electronically signed by: Ky Steinberg M.D. Hernan Cordero MD IMG XR PROCEDURES Final Res ult * eGFR (07/17/2020 1:47 PM CDT) [facility] eGFR 31 mL/min/1.7 3 m2 [facility] Comment: Interpretive Data Reference Interval Normal ?>/= [...] Cordero MD LAB BLOOD ORDERABLES Final Result [facility] [address] Department [place] [address] * (ABNORMAL) Differential, auto (07/17/2020 1:47 PM CDT) Neutrophil abs 4.4 1.7 - 6.5 K/cumm [facility] Imm gran abs 0.0 0.0 - 0.1 K/cumm [facility] Lymphocyte abs 0.6(L) 0.8 - 3.3 K/cumm [facility] Monocyte abs 0.4 0.2 - 0.8 K/cumm [facility] Eosinophil abs 0.2 0.0 - 0.5 K/cumm [facility] Basophil abs 0.0 0.0 - 0.1 K/cumm [facility] Neutrophil pct 78.1 % [facility] Comment: Interpretive Data Percent cell count reference ranges are not reported, since discordance with absolute values may lead to misinterpretation of CBC data. Current Interpretive Data was last revised on 2017. Imm gran pct 0.5 % [facility] Comment: Interpretive Data Percent cell count reference ranges are not reported, since discordance with absolute values may lead to misinterpretation of CBC data. Current Interpretive Data was last revised on 2017. Lymphocyte pct 10.6 % [facility] Comment: Interpretive Data Percent cell count reference ranges are not reported, since discordance with absolute values may lead to misinterpretation of CBC data. Current Interpretive Data was last revised on 2017. Monocyte pct 7.7 % [facility] Comment: Interpretive Data Percent cell count reference ranges are not reported, since discordance with absolute values may lead to misinterpretation of CBC data. Current Interpretive Data was last revised on 2017. Eosinophil pct 2.7 % [facility] Comment: Interpretive Data Percent cell count reference ranges are not reported, since discordance with absolute values may lead to misinterpretation of CBC data. Current Interpretive Data was last revised on 2017. Basophil pct 0.4 % [facility] Comment: Interpretive Data Percent cell count reference ranges are not reported, since discordance with absolute values may lead to misinterpretation of CBC data. Current Interpretive Data was last revised on 2017. Blood specimen (specimen) 07/17/2020 1:47 PM CDT 07/17/2020 1:52 PM CDT Hernan Cordero MD LAB BLOOD ORDERABLES Final Result [facility] [address] [place] [address] * Type and screen (07/17/2020 1:47 PM CDT) Liana, indirect Negative [facility] ABO Rh A Positive [facility] Blood specimen (specimen) 07/17/2020 1:47 PM CDT 07/17/2020 2:04 PM CDT Narrative [facility] - 07/17/2020 2:47 PM CDT RECENT BLOOD TRANSFUSION 06/12/20 Has the patient had Daratumumab or Isatuximab in the past 6 months?->No Hernan Cordero MD LAB BLOOD BANK TEST ORDERAB LES Final Result Performing Organization Address City/[facility]/ZIP Co de Phone Number [facility] [address] [place] [address] * (ABNORMAL) Basic metabolic panel (07/17/2020 1:47 PM CDT) [facility] Sodium 141 135 - 145 mmol/L [facility] Potassium, pl 4.9 3.3 - 4.9 mmol/L [facility] Chloride 105 97 - 110 mmol/L [facility] CO2 24 22 - 32 mmol/L [facility] Anion gap 12 2 - 15 mmol/L [facility] BUN 41(H) 8 - 25 mg/dL [facility] Creatinine 2.14(H) 0.80 - 1.30 mg/dL [facility] Glucose 95 70 - 199 mg/dL [facility] Comment: Interpretive Data Fasting glucose >/= 126 [...] 2017. Calcium 9.1 8.5 - 10.3 mg/dL [facility] Blood specimen (specimen) 07/17/2020 1:47 PM CDT 07/17/2020 1:52 PM CDT Hernan Cordero MD LAB BLOOD ORDERABLES Final Result [facility] [address] [place] [address] * (ABNORMAL) CBC with auto differential (07/17/2020 1:47 PM CDT) [facility] WBC 5.6 3.8 - 9.9 K/cumm [facility] Hgb 9.0(L) 13.0 - 17.5 g/dL [facility] Hct 28.5(L) 38.9 - 50.3 % [facility] Plt 178 150 - 400 K/cumm [facility] MPV 9.7 9.1 - 12.3 fL [facility] RBC 3.15(L) 4.30 - 5.80 M/cumm [facility] MCV 90.5 81.3 - 96.4 fL [facility] MCH 28.6 27.1 - 33.3 pg [facility] MCHC 31.6(L) 32.3 - 35.7 g/dL [facility] RDW CV 15.9(H) 11.1 - 14.9 % [facility] RDW SD 52.8(H) 35.7 - 48.1 fL [facility] NRBC abs 0.00 0.00 - 0.01 K/cumm [facility] Blood specimen (specimen) 07/17/2020 1:47 PM CDT 07/17/2020 1:52 PM CDT us Hernan Cordero MD LAB BLOOD ORDERABLES Final Result [facility] [address] Department [place] [address] documented in this encounter Visit Diagnoses Not on filedocumented in this encounter Administered Medications Inactive Administered Medications - up to 3 most recent administrations Medication Order MAR Action Action Date Dose Rate Site apixaban (ELIQUIS) tablet 5 mg 5 mg, [...] Given 07/18/2020 8:27 AM CDT 40 mg bupivacaine-EPINEPHrine (MARCAINE with EPI) 0.5 %-1:200,000 preservative free injection As needed, Starting on Fri07/17/20 at 1520, Intra-Op Given 07/17/2020 3:20 PM CDT 8 mL ceFAZolin (ANCEF) 1 gram/10 mL in sterile [...] 8:27 AM CDT 1,000 mg 200 mL/hr ceFAZolin (ANCEF) injection Administer over 3 Minutes, As needed, Starting on Fri07/17/20 at 1433, Intra-Op Given 07/17/2020 2:41 PM CDT 2,000 mg Given 07/17/2020 2:33 PM CDT 1,000 mg Loo rgical Site furosemide (LASIX) tablet 40 mg 40 mg, [...] VTE Prophylaxis 2105 (Given - Provider: Serenity Watkins RN) 826 (Given - Provider: Hannah Santamaria RN)2018 (Given - Provider: Serenity Watkins RN) 908 (Given - Provider: Nir Correa, RN) aspirin enteric coated tablet 81 mg 81 mg, oral, Daily, First dose on Fri07/17/20 at 2045, Do not crush, chew, cut, dissolve, open or otherwise manipulate tablet/capsule. 2110 (Given - Provider: Serenity Watkins RN) 826 (Given - Provider: Hannah Santamaria RN) 908 (Given - Provider: Nir Correa, [place]) atorvastatin (LIPITOR) tablet 40 mg 40 mg, oral, Daily, First dose on Fri07/18/20 at 0900 08 (Given - Provider: Hannah Santamaria RN) 908 (Given - Provider: Nir Correa, [place]) ceFAZolin [...] (New Bag - Provider: Serenity Watkins RN) 909 (New Bag - Provider: Nir Correa, [place]) furosemide (LASIX) tablet 40 mg 40 mg, oral, Daily, First dose on Fri07/18/20 at 0900 08 (Given - Provider: Hannah Santamaria RN) 09 (Given - Provider: Nir Correa, [place]) gabapentin (NEURONTIN) capsule 300 mg 300 mg, oral, 2 times daily, First dose on Fri07/18/20 at 0900, Do not crush, break, or open. 0941 (Given - Provider: Hannah Santamaria, [place])2018 (Given - Provider: Serenity Watkins RN) 09 (Given - Provider: Nir Correa, RN) labetaloL (NORMODYNE,TRANDATE) tablet 200 mg 200 mg, oral, 2 times daily, First dose on Fri07/17/20 at 2100 2105 (Given - Provider: Serenity Watkins RN) 08 (Given - Provider: Hannah Santamaria, [place])2021 (Given - Provider: Serenity Watkins RN) 908 (Given - Provider: Nir Correa, RN) potassium chloride ER (KLOR-CON) extended release tablet 20 mEq 20 mEq, oral, 2 times daily, First dose on Fri07/17/20 at 2100, Do not crush, chew, cut, dissolve, open or otherwise manipulate tablet/capsule. 2105 (Given - Provider: Serenity Watkins RN) 826 (Given - Provider: Hannah Santamaria, [place])2018 (Given - Provider: Serenity Watkins RN) 908 (Given - Provider: Nir Correa, [place]) sodium chloride 0.9% flush 0.5-20 mL 0.5-20 mL, intra-catheter, Every 8 hours scheduled, First dose on Fri07/17/20 at 2200, Flush volume based on line type and size. 2105 (Given - Provider: Serenity Watkins RN) 529 (Given - Provider: Serenity Watkins, [place])144 (Given - Provider: Hannah Santamaria, [place])2018 (Given - Provider: Serenity Watkins RN) 05 (Given - Provider: Serenity Watkins RN) Continuous [...] Indications: Pain 0534 (Given - Provider: Serenity Watkins RN)2022 (Given - Provider: Serenity Watkins RN) 0740 (Given - Provider: Nir Correa, [place]) ondansetron (ZOFRAN) injection 4 mg 4 mg, [...] Count Last Ordered Date First Ordered Date acetaminophen (TYLENOL) tablet 1,000 mg 1 0 07/17/2020 apixaban (ELIQUIS) tablet 5 mg 1 07/17/2020 aspirin enteric coated tablet 81 mg 1 07/17 atorvastatin (LIPITOR) tablet 40 mg 1 07/17 ceFAZolin (ANCEF) 1 gram/10 mL in sterile water (premix) 1,000 mg 1 07/17/2020 fentaNYL (SUBLIMAZE) preserv ative free injection 50 mcg 1 07/17/2020 furosemide (LASIX) tablet 40 mg 1 gabapentin (NEURONTIN) capsule 300 mg 1 HYDROcodone-acetaminophen (N ORCO) 5-325 mg per tablet 1 tablet 1 07/17/2020 labetaloL (NORMODYNE,TRANDAT E) tablet 200 mg 1 07/17/2020 naloxone (NARCAN) 0.4 mg/mL injection 0.04-0.4 mg 1 07/17/2020 ondansetron (ZOFRAN) injection 4 mg 1 07/17 potassium chloride ER (KLOR- CON) extended release tablet 20 mEq 1 07/17/2020 sodium chloride 0.9% flush 0.5-20 mL 3 06/29 sodium chloride 0.9% infusion 1 07/17/2020 CORE MEASURES Count Last Ordered Date First Ord ered Date REASON FOR NO VTE PROPHYLAXIS AT ADMISSION 1 07/17/2020 documented in this encounter Care Teams Customer Retention Specialist Relationship Specialty Start Date End Date Scott Oneill MD PCP - General Internal Medicine 04/27/20 documented as of this encounter
--- OUTSIDE RECORDS SUMMARY | 2024-04-04 01:44 | XMS_ITS | Encounter Summary ---
Author Organization [facility] Home Care Servic es Address [address] [place] [address] Phone Care Team Providers Care Photocopy Operator Name Role Phone Scott Oneill MD Primary Care Provider [phone] Reason for Visit * Auth/Cert Specialty Diagnoses / Procedures Referred By Contac t Referred To Contact Referral ID Status Reason Start Date Expiration Date Visits Re quested Visits Authorized [id number] 1 1 Encounter Details Date Type Department Care Team (Late st Contact Info) Description 07/11/[address] 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
--- OUTSIDE RECORDS SUMMARY | 2024-04-04 01:44 | XMS_ITS | Encounter Summary ---
Author Organization [facility] Home Care Servic es Address [address] [place] [address] Phone Care Team Providers Care Security Associate Name Role Phone Scott Oneill MD Primary Care Provider [phone] Reason for Visit * Auth/Cert Specialty Diagnoses / Procedures Referred By Rocky t Referred To Contact Referral ID Status Reason Start Date Expiration Date Visits Re quested Visits Authorized [id number] 1 1 Encounter Details Date Type Department Care Team (Late st Contact Info) Description 07/07/2020 11:30 AM CDT Home Care Visit [facility] [address] [address] [address] [place] [address] Sarah Carrizales RN SN HOME VISIT Social History Tobacco [...] on file 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 Gender Identity Male 12/24/2023 11:25 AM CDT Sexual Orientation Straight 12/24/2023 11 :25 AM CDT documented as of this encounter Last Filed Vital Signs Vital Sign Reading Time Taken Comments Blood Pressure - - Pulse 63 07/07/2020 12:20 PM CDT Temperature 36.3 ??C (97.3 ??F) 07/07/2020 12:20 PM C DT Respiratory Rate 18 07/07/2020 12:20 PM CDT Oxygen Saturation 98% 07/07/2020 12:20 PM CDT Inhaled Oxygen Concentration - - Weight 95.3 kg (210 lb) 07/07/2020 12:20 PM CDT Height 165.1 cm (5' 5 ) 07/07/2020 12:20 PM CDT Body Mass Index 34.95 07/07/2020 12:20 PM CDT documented in this encounter Progress Notes * Sarah Carrizales RN - 07/07/2020 1:41 PM CDT patient reports increase in edema in BLE and increase of 6 pounds in last 7 days. To combat edema pt reports I put on the compression hose I've had for years just a couple of days ago and it caused a significant increase in pain so I removed them after several hours. instructed patient to not wear unless approved by surgeon and/or PCP. Reviewed edema treatment/prevention. Patient verbalized understanding and agreement. cardio and CM notified. documented in this encounter Plan of Treatment Not on file documented as of this encounter Visit Diagnoses Not on filedocumented in this encounter Home Health Visit - Care Plan Visit Details Visit Type -SN Home Visit Discipline -Care Home Problems Problem Description Start Date Status Goals Interventions Homebound Status Disciplines: Care Home unable to leave the home without the assistance of another person. Decreased strength, endurance and balance. Elevated fall risk; unable to negotiate steps and/or uneven surfaces independently.[place] ent's homebound status 06/17/2020 Active 1 goal linked to scheduled/docume nted intervention 1 goal intervention scheduled/documen yun in this visit Medications Disciplines: Care Home Management of home medications 06/17/2020 Active 1 goal linked to scheduled/docume nted intervention 1 goal intervention scheduled/documen yun in this visit Monitor patient's vital signs every home health visit Disciplines: Care Home Monitor patient's vital signs every home health visit. 06/17/2020 Active 1 goal linked to scheduled/docume nted intervention 1 problem intervention scheduled/documen yun in this visit 1 goal intervention scheduled/documen yun in this visit Standardized Guidelines Disciplines: Care Home Standardized Guidelines 06/17/2020 Active 1 goal linked to scheduled/docume nted intervention 1 goal intervention scheduled/documen yun in this visit Fall Precautions/Safe ty Concerns Disciplines: Care Home Alteration in safety 06/17/2020 Active 1 goal linked to scheduled/docume nted intervention 2 goal interventions scheduled/documen yun in this visit Roslyn Precautions Disciplines: Care Home Roslyn Precautions 06/17/2020 Active 1 goal linked to scheduled/docume nted intervention 1 goal intervention scheduled/documen yun in this visit Pain Disciplines: Care Home Alteration in comfort 06/17/2020 Active 1 goal linked to scheduled/docume nted intervention 1 goal intervention scheduled/documen yun in this visit Potential for post-op complications Disciplines: Care Home Patient at risk for post-operative complications 06/17/2020 Active 1 goal linked to scheduled/docume nted intervention 1 goal intervention scheduled/documen yun in this visit Wound Care Disciplines: Care Home Wound care needed: wound #1, Left wrist. 06/17/2020 Active 1 goal linked to scheduled/docume nted intervention 1 goal intervention scheduled/documen yun in this visit Wound Care Disciplines: Care Home Wound care needed: wound #4, Chest. 06/17/2020 Active 1 goal linked to scheduled/docume nted intervention 1 goal intervention scheduled/documen yun in this visit Wound Risk of Infection Disciplines: Care Home Risk of infections related to wounds 06/17/2020 Active 1 goal linked to scheduled/docume nted intervention 1 goal intervention scheduled/documen yun in this visit Knowledge Deficit - Other Disease Process and Management Disciplines: Care Home Disease process and management, CAD 06/17/2020 Active 1 goal linked to scheduled/docume nted intervention 1 goal intervention scheduled/documen yun in this visit Reduced Circulation - CHF Disciplines: Care Home Reduced circulation 06/18/2020 Active 1 goal [...] visit during episode of care Description: Home refractory tile helper to measure vital signs during every home health visit during episode of care. Monitor patient's vital signs every home health visit No Understanding of when to notify MD in absence of home care staff Description: Understanding of when to notify MD in absence of home care staff Standardized Guidelines No Demonstrate use of safety precautions Description: Demonstrate use of safety precautions Fall Precautions/Safety Concerns No Demonstrate knowledge of universal precautions Description: Demonstrate knowledge of universal precautions [place] Precautions No Report that pain has been reduced [...] towards healing by 07/08/20. Wound Care No Knowledgeable of infection Description: : Patient [...] follow medication therapy Completed Patient verbalized understanding and denies further questions at this time on review of high-risk/high-alert medications (specifically furesomide and eliquis ). Monitor Vital Signs Description: Monitor blood pressure, pulse, oxygen saturation, respirations Problem:Monitor patient's vital signs every home health visit Goal:Measure vital signs during every home health visit during episode of care Completed VS WNL Monitor weight Description: patient to weigh daily and record. Problem:Monitor patient's vital signs every home health visit Completed patient demonstrates daily weights, denies questions Home Care Staff Absence Description: In absence of Home Care staff the patient/caregiver should call HHC and/or MD office. Problem:Standardized Guidelines Goal:Understanding of when to notify MD in absence of home care staff Completed patient verbalized understanding and denies further questions at this time. Code Status Description: Discuss with patient/caregiver code status Problem:Fall Precautions/Safety Concerns Goal:Demonstrate use of safety precautions Completed Patient reports he is a full code. Denies questions at this time. High Fall Risk Precautions Description: Instruct patient/caregiver in methods to prevent falls Problem:Fall Precautions/Safety Concerns Goal:Demonstrate use of safety precautions Completed Instructed patient on methods to prevent falls including: Stay physically active to improve response time and reduce risk of injury, Have eyes and hearing tested and if getting new glasses/hearing aids allow yourself time for adjusting, Know about the side effects of any medicines you take, get enough sleep, keep walkways clear of clutter and well-lit, stand up slowly and Use an assistive device if you need help feeling steady when you walk, Be very careful when walking on wet or icy surfaces, Wear non-skid, rubber-soled, low-heeled shoes, or lace-up shoes with non-skid soles that fully support your feet. Patient verbalizes understanding and denies further questions at this time. Aspects of Care Description: Instruct patient/caregiver on universal precautions and home infection control measures Problem:Roslyn Precautions Goal:Demonstrate knowledge of universal precautions Completed informed patient that each home care provider will use barriers for their bag, wear face masks w/eye protection and frequently wash/sanitize their hands and equipment to provide protection for the staff member and each patient. Home care visit expectations include each patient/caregiver participating in visit also wear face masks. Instruct on pain management techniques Description: Instruct in pharmacologic and nonpharmacologic pain management techniques. Problem:Pain Goal:Report that pain has been reduced or controlled Completed patient verbalized understanding and denies further questions at this time. Instruct postop care Description: Instruct patient on [...] Goal:Compliance and knowledge of post-op complications Completed reveiwed instructions with patient, verbalized understanding and denies further questions at this time. Perform dressing change Description: Wound care, wound #1, left wrist. Clean wound with soap and water daily, Pt may shower. Pat wound dry. Wound may be left open to air. Wound care to be completed daily by Pt or Caregiver daily. SN to complete wound care on SNV days. Problem:Wound Care Goal:Progression towards healing Completed no wound care needed. Open to air Perform dressing change Description: Wound care, wound #4, Chest: Clean wound with soap and water daily. Pt may shower. Pat wound dry. Wound care to be completed by Pt or Caregiver. Wound may be left open to air. SN to preform wound care on SNV days. Problem:Wound Care Goal:Progression towards healing Completed No wound care needed today, open to air. Instruct patient/family/caregiver on infection control and safe disposal of dressing materials Description: Instruct patient/caregiver on how to recognized signs and symptoms of infection and when to notify PATIENT SERVICE TECHNICIAN PST and/or physician per Wound Education Booklet. Instruct patient/caregiver on infection control measures and how to prevent infections Problem:Wound Risk of Infection Goal:Knowledgeable of infection Completed Instruct on hand washing before and after using the bathroom, after removing gloves or other protective clothing, before preparing food, after eating or smoking, immediately after hand contact with blood or other body fluids or feces, and frequently throughout the day. Instruct patient/caregiver to wear gloves any time they may have direct contact with blood, body fluids, non-intact skin, or surfaces soiled with blood or body fluids. Instruct patient/caregiver to dispose of soiled dressings and supplies in a plastic trash bag, seal, and place in regular trash. patient verbalizes understanding and denies quesitons. Notification of Complications Description: Instruct patient/caregiver when to notify SN/MD of complications Problem:Knowledge Deficit - Other Disease Process and Management Goal:Understanding of disease process Completed patient verbalized understanding and denies further questions at this time. Skilled assessment decreased cardiac output Description: Assess for exacerbation of congestive heart failure. Agency standard parameters: MD to be notified if systolic BP at rest <80>160, diastolic BP at rest <50>100, pulse at rest <60>110. SN to review weight log at every visit. Notify MD of increasing edema or shortness of breath. Problem:Reduced Circulation - CHF Goal:Demonstrate optimal circulation Completed Increase of 6 pounds in last 7 days, patient states the edema in left leg is worsened and both legs continue to feel tight and burning. documented in this encounter Home Health Visit - Actions and Narratives Narratives atient reports increase in e kevin in BLE and increase of 6 pounds in last 7 days. To combat edema he put on the compression hose I've had for years just a couple of days ago and it caused a significant increase in pain so I removed them after several hours. instructed patient to not wear unless approved by surgeon and/or PCP. Reviewed edema treatment/prevention education. Patient verbalized understanding and agreement. Cardio and CM notified. documented in this encounter Care Teams Security Associate Relationship Specialty Start Date End Date Scott Oneill MD PCP - General Internal Medicine 04/27/20 documented as of this encounter
--- OUTSIDE RECORDS SUMMARY | 2024-04-04 01:44 | XMS_ITS | Encounter Summary ---
Author Organization [facility] Home Care [facility] Address [address] [place] [address] Phone Care Team Providers Care Invoice Checker Name Role Phone Scott Oneill MD Primary Care Provider [phone]- [phone] Reason for Visit * Auth/Cert Specialty Diagnoses / Procedures Referred By Contac t Referred To Contact Referral ID Status Reason Start Date Expiration Date Visits Re quested Visits Authorized [id number] 1 1 Encounter Details Date Type Department Care Team (Late st Contact Info) Description 07/04/2020 Home Care Visit [facility] Home Health - [address] [place] [id number] Britney Aparicio RN TRAVEL SCREENING CASE COMMUNICATION [...] file 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
--- OUTSIDE RECORDS SUMMARY | 2024-04-04 01:44 | XMS_ITS | Encounter Summary ---
Author Organization [facility] Home Care Servic es Address [address] [place] [address] Phone Care Team Providers Care Head Well Puller Name Role Phone Scott Oneill MD Primary Care Provider [phone]- [phone] Reason for Visit * Auth/Cert Specialty Diagnoses / Procedures Referred By Contac t Referred To Contact Referral ID Status Reason Start Date Expiration Date Visits Re quested Visits Authorized [id number] 1 1 Encounter Details Date Type Department Care Team (Late st Contact Info) Description 06/27/2020 Home Care Visit [facility] Home Health - [address] [place] [id number] Sagar Garcia RN TRAVEL SCREENING CASE COMMUNICATION Social History [...] on file 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
--- OUTSIDE RECORDS SUMMARY | 2024-04-04 01:44 | XMS_ITS | Encounter Summary ---
Author Organization [facility] Home Care Serv[facility] es Address [address] [place] [address] Phone Care Team Providers Care Sql Server Developer Name Role Phone Scott Oneill MD Primary Care Provider [phone]- [phone] Reason for Visit * Auth/Cert Specialty Diagnoses / Procedures Referred By Contac t Referred To Contact Referral ID Status Reason Start Date Expiration Date Visits Re quested Visits Authorized [id number] 1 1 Encounter Details Date Type Department Care Team (Late st Contact Info) Description 07/14/2020 Home Care Visit [facility] Home Health - [address] [place] [id number] Britney Aparicio RN TRAVEL SCREENING CASE COMMUNICATION [...] file 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
--- OUTSIDE RECORDS SUMMARY | 2024-04-04 01:44 | XMS_ITS | Encounter Summary ---
Author Organization [facility] Medical Group Address 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 regarding the wound photo she uploaded. She reports the patient has no fever, and feels great. Dr. Cordero viewed the photo, and we will plan to see in ouroffice tomorrow. I called Britton, and gave him an appointment for 07/12/20 at 12:30 pm for a wound check. He verbalized understanding. * Telephone Encounter - Sheldon Giraldo RN - 07/11/2020 4:26 PM CDT ----- Message from Wendie Rasheed sent at 07/11/2020 1:58 PM CDT ----- Regarding: Photo in [facility] Patient Contact: David Tan called. Please look at the photo in Epic that she uploaded. documented in this encounter Plan of Treatment Not on file documented as of this encounter Visit Diagnoses Not on filedocumented in this encounter Care Teams Java Groovy Developer Relationship Specialty Start Date End Date Scott Oneill MD PCP - General Internal Medicine 04/27/20 documented as of this encounter
--- OUTSIDE RECORDS SUMMARY | 2024-04-04 01:44 | XMS_ITS | Encounter Summary ---
Author Organization [facility] Home Care Serv[facility] es Address [address] [place] [address] Phone Care Team Providers Care Meat Carrier Name Role Phone Scott Oneill MD Primary Care Provider [phone]- [phone] Reason for Visit * Auth/Cert Specialty Diagnoses / Procedures Referred By Rocky t Referred To Contact Referral ID Status Reason Start Date Expiration Date Visits Re quested Visits Authorized [id number] 1 1 Encounter Details Date Type Department Care Team (Late st Contact Info) Description 07/14/2020 9:00 AM CDT Home Care Visit [facility] [address] [address] [address] [place] [address] Britney Aparicio, [place] SN HOME VISIT Social [...] on file 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 Gender Identity Male 12/24/2023 11:25 AM CDT Sexual Orientation Straight 12/24/2023 11 :25 AM CDT documented as of this encounter Last Filed Vital Signs Vital Sign Reading Time Taken Comments Blood Pressure 136/70 07/14/2020 12:00 AM CDT Pulse 68 07/14/2020 12:00 AM CDT Temperature 36.5 ??C (97.7 ??F) 07/14/2020 12:00 AM C DT Respiratory Rate 20 07/14/2020 12:00 AM CDT Oxygen Saturation 97% 07/14/2020 12:00 AM CDT Inhaled Oxygen Concentration - - Weight 95.7 kg (211 lb) 07/14/2020 12:00 AM CDT Height - - Body Mass Index 35.11 07/07/2020 12:20 PM CDT documented in this encounter Plan [...] scheduled/documen yun in this visit Medications Disciplines: Correction Management of home medications 06/17/2020 Active 1 [...] this visit Fall Precautions/Safe ty Concerns Disciplines: Correction Alteration in safety 06/17/2020 Active 1 goal linked to scheduled/documen yun intervention 1 goal intervention scheduled/documen yun in this visit Wound Care Disciplines: Correction Wound care needed: wound #4, Chest. 06/17/2020 Active - 1 problem intervention scheduled/documen yun in this visit Reduced Circulation - CHF Disciplines: Correction Reduced circulation 06/18/2020 Active 1 goal linked [...] visit during episode of care Description: Home drum drier operator to measure vital signs during every home health visit during episode of care. Monitor patient's vital signs every home health visit No Demonstrate use of safety precautions Description: Demonstrate use of safety precautions Fall Precautions/Safety Concerns No Demonstrate optimal circulation Description: Patient will [...] medication therapy Completed reviewed all meds with pt., side effects and uses. pt verbalizes good [...] vital signs every home health visit Completed [place] Fall Precautions Description: Assess patient safety Problem:Fall [...] able. ANA Smiley RN/MM/JN Problem:Wound Care Completed wound #4 chest incision/wound care: sn instruct: pt to shower daily before wound care. let water run over incision/wound. pat dry. pack with Betadine soaked 2x2 gauze. cover with dry gauze and tape. daily and prn dislodgement/drainage . cg to do in SN absence if able. wound care done without difficulty. pt tolerated well. verbalizes good understanding. Skilled assessment decreased cardiac output Description: [...] Completed documented in this encounter Care Teams Meat Carrier Relationship Specialty Start Date End Date Scott Oneill MD PCP - General Internal Medicine 04/27/20 documented as of this encounter
--- OUTSIDE RECORDS SUMMARY | 2024-04-04 01:44 | XMS_ITS | Encounter Summary ---
Author Organization [facility] Home Care Servic es Address [address] [place] [address] Phone Care Team Providers Care Manager Utilization Name Role Phone Scott Oneill MD Primary Care Provider [phone]- [phone] Reason for Visit * Reason Comments Wound Care * Auth/Cert Specialty Diagnoses / Procedures Referred By Contac t Referred To Contact Referral ID Status Reason Start Date Expiration Date Visits Re quested Visits Authorized [id number] 1 1 Encounter Details Date Type Department Care Team (Late st Contact Info) Description 07/15/2020 9:15 AM CDT Home Care Visit [facility] [address] [address] [address] [place] [address] Rocío Ramírez, [place] [facility] HOME VISIT Social [...] on file 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 Gender Identity Male 12/24/2023 11:25 AM CDT Sexual Orientation Straight 12/24/2023 11 :25 AM CDT documented as of this encounter Last Filed Vital Signs Vital Sign Reading Time Taken Comments Blood Pressure 160/80 07/15/2020 10:52 AM CDT Pulse 74 07/15/2020 10:52 AM CDT Temperature 36.1 ??C (97 ??F) 07/15/2020 10:52 AM CDT Respiratory Rate 18 07/15/2020 10:52 AM CDT Oxygen Saturation 97% 07/15/2020 10:52 AM CDT Inhaled Oxygen Concentration - - Weight 95.7 kg (211 lb) 07/15/2020 10:52 AM CDT Height - - Body Mass Index 35.11 07/07/2020 12:20 PM CDT documented in this encounter Plan of Treatment Not on file documented as of this encounter Visit Diagnoses Not on filedocumented in this encounter Home Health Visit - Care Plan Visit Details Visit Type -SN Home Visit Discipline -[facility] Problems Problem Description Start Date Status Goals Interventions Homebound Status Disciplines: [facility] unable to leave the home without the assistance of another person. Decreased strength, endurance and balance. Elevated fall risk; unable to negotiate steps and/or uneven surfaces independently.[place] ent's homebound status 06/17/2020 Active 1 goal linked to scheduled/docume nted intervention 1 goal intervention scheduled/documen yun in this visit Medications Disciplines: [facility] Management of home medications 06/17/2020 Active 1 goal linked to scheduled/docume nted intervention 1 goal intervention scheduled/documen yun in this visit Monitor patient's vital signs every home health visit Disciplines: [facility] Monitor patient's vital signs every home health visit. 06/17/2020 Active 1 goal linked to scheduled/docume nted intervention 1 problem intervention scheduled/documen yun in this visit 1 goal intervention scheduled/documen yun in this visit Infection Prevention Disciplines: [facility] Infection Prevention 06/17/2020 Active 1 goal linked to scheduled/docume nted intervention 1 goal intervention scheduled/documen yun in this visit Pain Disciplines: [facility] Alteration in comfort 06/17/2020 Active 1 goal linked to scheduled/docume nted intervention 1 goal intervention scheduled/documen yun in this visit Potential for post-op complications Disciplines: [facility] Patient at risk for post-operative complications 06/17/2020 Active 1 goal linked to scheduled/docume nted intervention 1 goal intervention scheduled/documen yun in this visit Wound Care Disciplines: [facility] Wound care needed: wound #4, Chest. 06/17/2020 Active - 1 problem intervention scheduled/documen yun in this visit Wound Risk of Infection Disciplines: [facility] Risk of infections related to wounds 06/17/2020 Active 1 goal linked to scheduled/docume nted intervention 1 goal intervention scheduled/documen yun in this visit Reduced Circulation - CHF Disciplines: [facility] Reduced circulation 06/18/2020 Active 1 goal linked [...] visit during episode of care Description: Home garbage truck dispatcher to measure vital signs during every home health visit during episode of care. Monitor patient's vital signs every home health visit No Verbalize signs of infection Description: Verbalize signs of infection Infection Prevention No Report that pain has been reduced [...] Patient is homebound due to recent surgery, pain, poor endurance, risk for falls, open wound Instruct on High Risk Medications Description: Instruct patient/caregiver on high-risk/high-alert medications, including: anti-convulsant, anti-retroviral, anti-coagulant, chemotherapeutic, hypo-glycemic, immunosuppressant, insulin, and opioid. Problem:Medications Goal:Understand and follow medication therapy Completed instructed on norco. instructed on reason for use, dosage and possible side effects [facility]. Monitor Vital Signs Description: Monitor blood pressure, [...] Problem:Infection Prevention Goal:Verbalize signs of infection Completed instructed to wash hands and use gloves when doing wound care. understanding expressed. Instruct on pain management techniques Description: Instruct in pharmacologic and nonpharmacologic pain management techniques. Problem:Pain Goal:Report that pain has been reduced or controlled Completed instructed to report if pain is not relieved to an acceptaable level. understanding expressed. Instruct postop care Description: [...] knowledge of post-op complications Completed instructed to maintain surgical limitations as ordered. understanding expressed. Wound care Description: wound #4 chest incision/wound care: sn instruct: pt to shower daily before wound care. let water run over incision/wound. pat dry. pack with Betadine soaked 2x2 gauze. cover with dry gauze and tape. daily and prn dislodgement/drainage. cg to do in SN absence if able. VO Sheldon Smiley RN/MM/JN Problem:Wound Care Completed Instruct on [...] Health Visit - Actions and Narratives Actions pt's blood pressure is eleva yun. has not taken morning medication yet. rechecked with pt's wrist machine. instructed to check again in a couple hours and call sn if it is still elevated. understanding expressed. instructed to report if he has chest pain, increase in sob or edema to lower legs. documented in this encounter Care Teams Manager Utilization Relationship Specialty Start Date End Date Scott Oneill MD PCP - General Internal Medicine 04/27/20 documented as of this encounter
--- OUTSIDE RECORDS SUMMARY | 2024-04-04 01:44 | XMS_ITS | Encounter Summary ---
Author Organization [facility] Home Care [facility] es Address [address] [place] [address] Phone Care Team Providers Care Chief Scientist Name Role Phone Scott Oneill MD Primary Care Provider [phone]- [phone] Reason for Visit * Auth/Cert Specialty Diagnoses / Procedures Referred By Contac t Referred To Contact Referral ID Status Reason Start Date Expiration Date Visits Re quested Visits Authorized [id number] 1 1 Encounter Details Date Type Department Care Team (Late st Contact Info) Description 06/30/2020 Home Care Visit [facility] Home Health - [address] [place] [id number] Sagar Garcia RN TRAVEL SCREENING CASE COMMUNICATION [...] on file 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
--- OUTSIDE RECORDS SUMMARY | 2024-04-04 01:44 | XMS_ITS | Encounter Summary ---
Author Organization [facility] Home Care Servic es Address [address] [place] [address] Phone Care Team Providers Care Property Management Bookkeeper Name Role Phone Scott Oneill MD Primary Care Provider [phone]- [phone] Reason for Visit * Auth/Cert Specialty Diagnoses / Procedures Referred By Rocky t Referred To Contact Referral ID Status Reason Start Date Expiration Date Visits Re quested Visits Authorized [id number] 1 1 Encounter Details Date Type Department Care Team (Late st Contact Info) Description 06/27/2020 8:30 AM CDT Home Care Visit [facility] [address] [address] [address] [place] [address] Sagar Garcia RN SN HOME VISIT Social History Tobacco [...] file 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 Gender Identity Male 12/24/2023 11:25 AM CDT Sexual Orientation Straight 12/24/2023 11 :25 AM CDT documented as of this encounter Last Filed Vital Signs Vital Sign Reading Time Taken Comments Blood Pressure 132/80 06/27/2020 8:39 AM CDT Pulse 78 06/27/2020 8:39 AM CDT Temperature 37.2 ??C (98.9 ??F) 06/27/2020 8:39 AM CD T Respiratory Rate 18 06/27/2020 8:39 AM CDT Oxygen Saturation 96% 06/27/2020 8:39 AM CDT Inhaled Oxygen Concentration - - Weight 89.8 kg (198 lb) 06/27/2020 8:39 AM CDT Height - - Body Mass Index 32.95 06/19/2020 10:42 AM CDT documented in this [...] ed in this visit Infection Prevention Disciplines: [facility] Infection Prevention 06/17/2020 Active 1 goal linked to scheduled/documen [...] Care Disciplines: [facility] Wound care needed: wound #1, Left wrist. 06/17/2020 Active 1 goal linked to scheduled/documen yun intervention 1 goal intervention scheduled/document ed in this visit Wound Care Disciplines: [facility] Wound care needed: wound #3, right knee. 06/17/2020 Active 1 goal linked to scheduled/documen yun intervention 1 goal intervention scheduled/document ed in this visit Wound Care Disciplines: [facility] Wound care needed: wound #4, Chest. 06/17/2020 Active 1 goal linked to scheduled/documen yun intervention 1 goal intervention scheduled/document ed in this visit Wound Care Disciplines: [facility] Wound care needed: wound #5, Right leg. 06/17/2020 Active 1 goal linked to scheduled/documen yun intervention 1 goal intervention scheduled/document ed in this visit Wound Care Disciplines: [facility] Wound care needed: wound #6, Left knee. 06/17/2020 Active 1 goal linked to scheduled/documen yun intervention 1 goal intervention scheduled/document ed in this visit Wound Care Disciplines: [facility] Wound care needed: wound #7, lower; anterior sternum. 06/17/2020 Active 1 goal linked to scheduled/documen yun intervention 1 goal intervention scheduled/document ed in this visit Goals Goal Associated Problem Outcome Goal Met? Visit Notes Patient recieves care at the most appropriate care setting Description: Patient receives care at the most appropriate care setting. Homebound Status No Measure vital signs during every home health visit during episode of care Description: Home typesetting machine operator/tender to measure vital signs during every home [...] towards healing by 07/08/20. Wound Care No Interventions Intervention Associated Problem/Goal [...] Problem:Infection Prevention Goal:Verbalize signs of infection Completed Educate Family on Infection Prevention Description: Instructed family on signs and symptoms of infection IE: fever, odor, change in color, increased amount of drainage, purulent drainage, warmth. Problem:Infection Prevention Goal:Verbalize signs of infection Completed Instructed family on signs and symptoms of infection IE: fever, odor, change in color, increased amount of drainage, purulent drainage, warmth. Pt and PCG verbalized understanding of content taught. Instruct in relaxation strategies Description: Instruct patient/caregiver in relaxation strategies Problem:Pain Goal:Report that pain has been reduced or controlled Completed Instruct postop care Description: Instruct patient [...] 1-2 minutes weekly. use I.S. 10x's q . Pt verbalized agreement and understanding. Perform dressing change Description: Wound care, [...] to complete wound care on SNV days. Pt is independent with wound care. Perform dressing change Description: Wound care to wound #3, right knee: clean with soap and water, Pt may shower. Pat wound dry. Wound may be left open to air. Wound care to be completed daily by Pt or Caregiver daily. SN to complete wound care on SNV days. Problem:Wound Care Goal:Progression towards healing Completed Wound care to wound #3, right knee: clean with soap and water, Pt may shower. Pat wound dry. Wound may be left open to air. Wound care to be completed daily by Pt or Caregiver daily. SN to complete wound care on SNV days. Pt is compliant with wound care. Perform dressing change Description: Wound care, wound [...] to preform wound care on SNV days. Pt is independent with wound care. Perform dressing change Description: Wound care to wound 5, right knee. Clean with soap and water daily. Pt may shower. Pat wound dry. Wound may be left open to air. Wound care to be compeled by Pt or Caregiver. Wound care to be completed by SN on SNV days. Problem:Wound Care Goal:Progression towards healing Completed Wound care to wound 5, right knee. Clean with soap and water daily. Pt may shower. Pat wound dry. Wound may be left open to air. Wound care to be compeled by Pt or Caregiver. Wound care to be completed by SN on SNV days. Pt is independent with wound care. Perform dressing change Description: Wound care to wound #6, Left knee: wound to be cleaned with soap and water daily. Pt may shower. Pat wound dry. Wound may be left open to air. Wound care to be completed by Pt or Caregiver. SN to complete wound care on SNV days. Problem:Wound Care Goal:Progression towards healing Completed Wound care to wound #6, Left knee: wound to be cleaned with soap and water daily. Pt may shower. Pat wound dry. Wound may be left open to air. Wound care to be completed by Pt or Caregiver. SN to complete wound care on SNV days. Pt is independent with wound care. Perform dressing change Description: Wound care to wound #7, lower; anterior sternum. Wound to be cleaned with soap and water daily. Pt may shower. Pat wound dry. Wound may be left open to air. Wound care to be completed by Pt or Caregiver. Wound care to be completed by SN on SNV days. Problem:Wound Care Goal:Progression towards healing Completed Wound care to wound #7, lower; anterior sternum. Wound to be cleaned with soap and water daily. Pt may shower. Pat wound dry. Wound may be left open to air. Wound care to be completed by Pt or Caregiver. Wound care to be completed by SN on SNV days. Pt is independent with wound care. documented in this encounter Care Teams Property Management Bookkeeper Relationship Specialty Start Date End Date Scott Oneill MD PCP - General Internal Medicine 04/27/20 documented as of this encounter
--- OUTSIDE RECORDS SUMMARY | 2024-04-04 01:44 | XMS_ITS | Encounter Summary ---
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 Medications: Pt reports taking all medication as prescribed. Asked specifically about aspirin, blood thinner (eliquis), and cholesterol/statin medication. Pt denies any current questions about medications. ?? Cardiac Rehab Facility: Pt states that he has spoken with [facility]'s cardiac rehab in [place], [place]. He is not scheduled for rehab yet, and is waiting to receive another call back from them about his insurance. I encouraged him to call them next week if he has not heard from them yet at that time. Pt states that he is doing 30+ minutes of light walking at least 5 days/week. He reports no currentissues. ?? Explained the importance of trying to gradually, and safely improve exercise tolerance. Educatedpt on the [place] [employer] recommendation of working towards 150+ minutes/week of light to moderate-intensity aerobic exercise, or 75+ minutes of vigorous-intensity aerobic exercise to helpimprove cardiovascular function as well as quality of life. Pt verbalized understanding. ?? Suggested that pt avoid strenuous exercise/exertion outside if the weather is under 40 degrees, or over 85 degrees. Explained the physiological reasoning for this suggestion - pt verbalized understanding. ?? Educated pt on the signs/symptoms of over-exertion: SOB, chest discomfort, musculoskeletal pain,abnormal fatigue, etc. Explained when it would be appropriate to call Supervisor Heading's office, go to the ER, or call 911 - pt verbalized understanding. ??? Diet: Briefly discussed the importance/benefits of following a heart healthy diet. ?? Supervisor Heading Follow-up Appointment: Pt sees Dr. Cordero on 07/18. Pt saw Dr. Austin on 06/19, and sees him next in August. ?? Readmission: Pt reports they have not been readmitted to a hospital since being discharged from [facility]. Will plan to make 90-day f/u call with pt. * Telephone Encounter - Rehan Infante EP-C - 07/11/2020 12:46 PM CDT Pt returned my call while I was on the phone with another pt, and he left a . I will attempt to return call today. * Telephone Encounter - Rehan Infante EP-C - 07/11/2020 12:28 PM CDT Called pt to ask Cardiac Rehab Navigator Initial f/u questions. No answer. LMOR x 1 with name, department and office phone number. Will plan to call again at a later date if pt does not return call. documented in this encounter Plan of Treatment Not on file documented as of this encounter Visit Diagnoses Not on filedocumented in this encounter Care Teams Automobile Salesman Relationship Specialty Start Date End Date Scott Oneill MD PCP - General Internal Medicine 04/27/20 documented as of this encounter
--- OUTSIDE RECORDS SUMMARY | 2024-04-04 01:44 | XMS_ITS | Encounter Summary ---
Author Organization [facility] Address [address] [place] [address] Care Team Providers Care Acid Dipper Name Role Phone Scott Oneill MD Primary Care Provider [phone] [phone] Reason for Visit * Reason Comments Wound Check Encounter Details Date Type Department Care Team (Late st Contact Info) Description 07/13/2020 12:30 PM CDT Office Visit Cardiovascular and Thoracic Surgery [address] [place] [address] Hernan Cordero MD [address] [facility] [address] [place] [address] S/P CABG x 3 (Primary [...] on file 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 Gender Identity Male 12/24/2023 11:25 AM CDT Sexual Orientation Straight 12/24/2023 11 :25 AM CDT documented as of this encounter Last Filed Vital Signs Vital Sign Reading Time Taken Comments Blood Pressure 144/76 07/13/2020 12:29 PM CDT Pulse 68 07/13/2020 12:29 PM CDT Regu lar Temperature - - Respiratory Rate 18 07/13/2020 12:29 PM CDT Oxygen Saturation - - Inhaled Oxygen Concentration - - Weight - - Height - - Body Mass Index - - documented in this encounter Patient Instructions * Patient Instructions* Sheldon Giraldo RN - 07/13/2020 12:30 PM CDT We will see you Friday07/17/20 at 12:30 PM documented in this encounter Ordered Prescriptions Prescription Sig Dispense Quantity Refills Last Filled Start Date End Date doxycycline (VIBRAMYCIN) 100 mg capsule Take 1 tablet/capsule (100 mg total) by mouth 2 (two) times a day for 10 days 20 tablet/capsul e 07/13/2020 HYDROcodone-acetam inophen (NORCO) 5-325 mg per tabletIndications: Pain [The details of the medication are not available because there are pending changes by a home health clinician.] 40 tablet 07/13/2020 documented in this encounter Progress Notes * Hernan Cordero MD - 07/13/2020 12:30 PM CDT Patient comes in for a wound check, the wound was explored and probed with a peroxide soaked Q-tip and repacked, we will see him again on Friday, cultures no growth so far. He still has no constitutional symptoms. 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
--- OUTSIDE RECORDS SUMMARY | 2024-04-04 01:44 | XMS_ITS | Encounter Summary ---
Author Organization [facility] Home Care Servic es Address [address] [place] [address] Phone Care Team Providers Care Rail Flaw Detector Operator Name Role Phone Scott Oneill MD Primary Care Provider [phone]- [phone] Reason for Visit * Auth/Cert Specialty Diagnoses / Procedures Referred By Contac t Referred To Contact Referral ID Status Reason Start Date Expiration Date Visits Re quested Visits Authorized [id number] 1 1 Encounter Details Date Type Department Care Team (Late st Contact Info) Description 06/23/2020 Home Care Visit [facility] Home Health - [address] [place] [id number] Sagar Garcia RN TRAVEL SCREENING CASE COMMUNICATION [...] on file 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
--- OUTSIDE RECORDS SUMMARY | 2024-04-04 01:44 | XMS_ITS | Encounter Summary ---
Author Organization [facility] Address [address] [place] [address] Phone Care Team Providers Care Feather Renovator Name Role Phone Scott Oneill MD Primary Care Provider [phone] Reason for Visit * Auth/Cert Specialty Diagnoses / Procedures Referred By Contac t Referred To Contact Referral ID Status Reason Start Date Expiration Date Visits Re quested Visits Authorized [id number] 1 1 Encounter Details Date Type Department Care Team (Late st Contact Info) Description 07/11/2020 1:00 PM CDT Home Care Visit [facility] [address] [address] [address] [place] [address] Britney Aparicio, [facility] Social [...] on file 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 Gender Identity Male 12/24/2023 11:25 AM CDT Sexual Orientation Straight 12/24/2023 11 :25 AM CDT documented as of this encounter Last Filed Vital Signs Vital Sign Reading Time Taken Comments Blood Pressure 136/62 07/11/2020 1:40 PM CDT Pulse 67 07/11/2020 1:40 PM CDT Temperature 36.4 ??C (97.6 ??F) 07/11/2020 1:40 PM CD T Respiratory Rate 20 07/11/2020 1:40 PM CDT Oxygen Saturation 97% 07/11/2020 1:40 PM CDT Inhaled Oxygen Concentration - - Weight 95.3 kg (210 lb) 07/11/2020 1:40 PM CDT Height - - Body Mass Index 34.95 07/07/2020 12:20 PM CDT documented in this encounter Plan of Treatment Not on file documented as of this encounter Visit Diagnoses Not on filedocumented in this encounter Home Health Visit - Care Plan Visit Details Visit Type -SN Home Visit Discipline -Snf Problems Problem Description Start Date Status Goals Interventions Homebound Status Disciplines: Snf unable to leave the home without the assistance of another person. Decreased strength, endurance and balance. Elevated fall risk; unable to negotiate steps and/or uneven surfaces independently.[place] ent's homebound status 06/17/2020 Active 1 goal linked to scheduled/docume nted intervention 1 goal intervention scheduled/documen yun in this visit Medications Disciplines: Snf Management of home medications 06/17/2020 Active 1 goal linked to scheduled/docume nted intervention 2 goal interventions scheduled/documen yun in this visit Monitor patient's vital signs every home health visit Disciplines: Snf Monitor patient's vital signs every home health visit. 06/17/2020 Active 1 goal linked to scheduled/docume nted intervention 1 problem intervention scheduled/documen yun in this visit 1 goal intervention scheduled/documen yun in this visit Fall Precautions/Safe ty Concerns Disciplines: Snf Alteration in safety 06/17/2020 Active 1 goal linked to scheduled/docume nted intervention 1 goal intervention scheduled/documen yun in this visit Potential for post-op complications Disciplines: Snf Patient at risk for post-operative complications 06/17/2020 Active 1 goal linked to scheduled/docume nted intervention 1 goal intervention scheduled/documen yun in this visit Wound Care Disciplines: Snf Wound care needed: wound #1, Left wrist. 06/17/2020 Active 1 goal linked to scheduled/docume nted intervention 2 goal interventions scheduled/documen yun in this visit Wound Care Disciplines: Snf Wound care needed: wound #4, Chest. 06/17/2020 Active 1 goal linked to scheduled/docume nted intervention 1 goal intervention scheduled/documen yun in this visit Reduced Circulation - CHF Disciplines: Snf Reduced circulation 06/18/2020 Active 1 goal linked [...] visit during episode of care Description: Home yarding engineer to measure vital signs during every home health visit during episode of care. Monitor patient's vital signs every home health visit No Demonstrate use of safety precautions Description: Demonstrate use of safety precautions Fall Precautions/Safety Concerns No Compliance and knowledge of post-op complications [...] side effects and uses. pt verbalizes good understanding. Monitor effectiveness of drug therapy Description: Monitor [...] vital signs every home health visit Completed [place] Fall Precautions Description: Assess patient safety Problem:Fall Precautions/Safety Concerns Goal:Demonstrate use of safety precautions Completed Instruct postop care Description: Instruct patient [...] drink 1.5-2L water daily. reviewed all instructions w/ patient and he verbalizes good understanding. Wound Photo Description: Take and transmit wound photo of all wounds. Problem:Wound Care Goal:Progression towards healing Completed Perform dressing change Description: Wound care, wound [...] care on SNV days. pt continues washing daily. noticed 2 blisters this morning after shower at proximal end of sternal incision. notified Sheldon @ Dr. Cordero's office. they will see patient tomorrow, FRI, 07/12. pt verbalizes understanding. Skilled assessment decreased cardiac output Description: [...] Completed documented in this encounter Care Teams Feather Renovator Relationship Specialty Start Date End Date Scott Oneill MD PCP - General Internal Medicine 04/27/20 documented as of this encounter
--- OUTSIDE RECORDS SUMMARY | 2024-04-04 01:44 | XMS_ITS | Encounter Summary ---
Author Organization [facility] Address [address] [place] [address] Phone Care Team Providers Care Tax Record Clerk Name Role Phone Scott Oneill MD Primary Care Provider [phone] Reason for Visit * Auth/Cert Specialty Diagnoses / Procedures Referred By Rocky t Referred To Contact Referral ID Status Reason Start Date Expiration Date Visits Re quested Visits Authorized [id number] 1 1 Encounter Details Date Type Department Care Team (Late st Contact Info) Description 06/30/2020 8:30 AM CDT Home Care Visit [facility] [address] [address] [address] [place] [address] Sagar Garcia RN SN HOME VISIT Social [...] file 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 Gender Identity Male 12/24/2023 11:25 AM CDT Sexual Orientation Straight 12/24/2023 11 :25 AM CDT documented as of this encounter Last Filed Vital Signs Vital Sign Reading Time Taken Comments Blood Pressure 132/70 06/30/2020 9:10 AM CDT Pulse 76 06/30/2020 9:10 AM CDT Temperature 37.1 ??C (98.7 ??F) 06/30/2020 9:10 AM CD T Respiratory Rate 18 06/30/2020 9:10 AM CDT Oxygen Saturation 97% 06/30/2020 9:10 AM CDT Inhaled Oxygen Concentration - - Weight 92.5 kg (204 lb) 06/30/2020 9:10 AM CDT Height - - Body Mass Index 33.95 06/19/2020 10:42 AM CDT documented in this [...] scheduled/documen yun in this visit Medications Disciplines: Usp Management of home medications 06/17/2020 Active 1 [...] Care Disciplines: Usp Wound care needed: wound #1, Left wrist. 06/17/2020 Active 1 goal linked to scheduled/documen yun intervention 1 goal intervention scheduled/documen yun in this visit Wound Care Disciplines: Usp Wound care needed: wound #3, right knee. 06/17/2020 Active 1 goal linked to scheduled/documen yun intervention 1 goal intervention scheduled/documen yun in this visit Wound Care Disciplines: Usp Wound care needed: wound #4, Chest. 06/17/2020 Active 1 goal linked to scheduled/documen yun intervention 1 goal intervention scheduled/documen yun in this visit Wound Care Disciplines: Usp Wound care needed: wound #5, Right leg. 06/17/2020 Active 1 goal linked to scheduled/documen yun intervention 1 goal intervention scheduled/documen yun in this visit Wound Care Disciplines: Usp Wound care needed: wound #6, Left knee. 06/17/2020 Active 1 goal linked to scheduled/documen yun intervention 1 goal intervention scheduled/documen yun in this visit Wound Care Disciplines: Usp Wound care needed: wound #7, lower; anterior sternum. 06/17/2020 Active 1 goal linked to scheduled/documen yun intervention 1 goal intervention scheduled/documen yun in this visit Wound Care Disciplines: Usp Wound care needed 06/17/2020 Active 1 goal linked to scheduled/documen [...] visit during episode of care Description: Home forensic nurse to measure vital signs during every home health visit during episode of care. Monitor patient's vital signs every home health visit No Progression towards healing Description: Wound show [...] negotiate steps and/or uneven surfaces independently. Monitor effectiveness of drug therapy Description: Monitor [...] vital signs every home health visit Completed Perform dressing change Description: Wound care, [...] SNV days. Pt is independent with wound care Perform dressing change Description: Wound care to [...] days. Pt is independent with wound care. Skilled assessment wound Description: Full wound assessment including measurement weekly. Wound assessment each visit. Post-op CV Assessment. Please remove any jorge and/or sutures 12-14 days post-op ( week of 06/19/20 ) . Please call Dr. Cordero's office for any post-op concerns. [phone] Problem:Wound Care Goal:Progression towards healing Completed Disposal of Dressing Description: Dispose of soiled dressing by place in bag then place in patient's trashcan. Problem:Wound Risk of Infection Goal:Knowledgeable of infection Completed Skilled assessment decreased cardiac output Description: Assess for exacerbation of congestive heart failure. Agency standard parameters: MD to be notified if systolic BP at rest <80>160, diastolic BP at rest <50>100, pulse at rest <60>110. SN to review weight log at every visit. Notify MD of increasing edema or shortness of breath. Problem:Reduced Circulation - CHF Goal:Demonstrate optimal circulation Completed Assess for exacerbation of congestive heart failure. Agency standard parameters: MD to be notified if systolic BP at rest <80>160, diastolic BP at rest <50>100, pulse at rest <60>110. SN to review weight log at every visit. Notify MD of increasing edema or shortness of breath. documented in this encounter Home Health Visit - Actions and Narratives Narratives Pt reports that his weight h as been stable and that the difference between SOC weight and current weight is due to using different weight scales. No CO SOB. Lungs are CTA and Pt's level of acitivity is increasing. documented in this encounter Care Teams Tax Record Clerk Relationship Specialty Start Date End Date Scott Oneill MD PCP - General Internal Medicine 04/27/20 documented as of this encounter
--- OUTSIDE RECORDS SUMMARY | 2024-04-04 01:44 | XMS_ITS | Encounter Summary ---
Author Organization [facility] Address [address] [place] [address] Care Team Providers Care Telehealth Nurse Educator Name Role Phone Scott Oneill MD Primary Care Provider [phone] Reason for Visit * Reason Onset Date Comments Wound update 07/14/2020 Encounter Details Date Type Department Care Team (Late st Contact Info) Description 07/14/2020 Telephone Cardiovascular and Thoracic Surgery [address] [place] [address] Sheldon Giraldo, RN [address] [place] [address] Wound update Social History Tobacco Use Types Packs/Day Years [...] on file 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 No increase in drainage, no fever. She will arrange for daily wound care visits over the weekend, and we will see him again on Friday. She mentioned he is anxious to hear about his wound culture results. I checked and there is a preliminary result, which I reviewed with Dr. Cordero. I called Britton and reassured him that we will likely not have a final result today, but Dr. Corderofeels he is on the right antibiotic, but if he has any problems over the weekend with the wound, orruns any fevers, to call our after hours number for guidance. He verbalized understanding. documented in this encounter Plan of Treatment Not on file documented as of this encounter Visit Diagnoses Not on filedocumented in this encounter Care Teams Telehealth Nurse Educator Relationship Specialty Start Date End Date Scott Oneill MD PCP - General Internal Medicine 04/27/20 documented as of this encounter
--- OUTSIDE RECORDS SUMMARY | 2024-04-04 01:44 | XMS_ITS | Encounter Summary ---
Author Organization [facility] Address [address] [place] [address] Phone Care Team Providers Care Paving Crew Foreman Name Role Phone Scott Oneill MD Primary Care Provider [phone] Reason for Visit * Auth/Cert Specialty Diagnoses / Procedures Referred By Contac t Referred To Contact Referral ID Status Reason Start Date Expiration Date Visits Re quested Visits Authorized [id number] 1 1 Encounter Details Date Type Department Care Team (Late st Contact Info) Description 07/17/2020 Home Care Visit [facility] Home Health - [address] [place] [id number] Britney Aparicio RN SN OASIS TRANSFER W/OUT DC Social History Tobacco Use Types Packs/Day Years [...] on file 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 Gender Identity Male 12/24/2023 11:25 AM CDT Sexual Orientation Straight 12/24/2023 11 :25 AM CDT documented as of this encounter Plan of Treatment Not on file documented as of this encounter Visit Diagnoses Not on filedocumented in this encounter Home Health Visit - Care Plan Visit Details Visit Type -SN OASIS Transfe r w/o DC Discipline -Nursing Home Problems Problem Description Start [...] visit during episode of care Description: Home manager leasing to measure vital signs during every home [...] care at the most appropriate care setting Scheduled Monitor Vital Signs Description: Monitor blood pressure, pulse, oxygen saturation, respirations Problem:Monitor patient's vital signs every home health visit Goal:Measure vital signs during every home health visit during episode of care Scheduled documented in this encounter Care Teams Paving Crew Foreman Relationship Specialty Start Date End Date Scott Oneill MD PCP - General Internal Medicine 04/27/20 documented as of this encounter
--- OUTSIDE RECORDS SUMMARY | 2024-04-04 01:45 | XMS_ITS | Encounter Summary ---
Author Organization [facility] Address [address] [place] [address] Phone Care Team Providers Care Wetlands Conservation Laborer Name Role Phone Scott Oneill MD Primary Care Provider [phone] Reason for Visit * Auth/Cert Specialty Diagnoses / Procedures Referred By Rocky t Referred To Contact Referral ID Status Reason Start Date Expiration Date Visits Re quested Visits Authorized [id number] 1 1 Encounter Details Date Type Department Care Team (Latest Contact Info) Description 06/17/2020 10:00 AM CDT Home Care Visit [facility] [address] [address] [address] [place] [address] Sagar Garcia RN SN OASIS START OF CARE Social History Tobacco Use Types [...] file 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 Gender Identity Male 12/24/2023 11:25 AM CDT Sexual Orientation Straight 12/24/2023 11 :25 AM CDT documented as of this encounter Last Filed Vital Signs Vital Sign Reading Time Taken Comments Blood Pressure 132/76 06/17/2020 10:38 AM CDT Pulse 72 06/17/2020 10:38 AM CDT Temperature 36.3 ??C (97.4 ??F) 06/17/2020 10:38 AM C DT Respiratory Rate 18 06/17/2020 10:38 AM CDT Oxygen Saturation 95% 06/17/2020 10:38 AM CDT Inhaled Oxygen Concentration - - Weight 89.8 kg (198 lb) 06/17/2020 10:38 AM CDT Height 165.1 cm (5' 5 ) 06/17/2020 10:38 AM CDT Body Mass Index 32.95 06/17/2020 10:38 AM CDT documented in this encounter Plan of Treatment Not on file documented as of this encounter Visit Diagnoses Not on filedocumented in this encounter Home Health Visit - Care Plan Visit Details Visit Type -SN OASIS Start o f Care Discipline -Senior Living Problems Problem Description Start Date Status Goals Interve ntions Homebound Status Disciplines: Senior Living unable to leave the home without the assistance of another person. Decreased strength, endurance and balance. Elevated fall risk; unable to negotiate steps and/or uneven surfaces independently.[place] ent's homebound status 06/17/2020 Active 1 goal linked to scheduled/documen yun intervention 1 goal intervention scheduled/documen yun in this visit Medications Disciplines: Senior Living Management of home medications 06/17/2020 Active 1 goal linked to scheduled/documen yun intervention 2 goal interventions scheduled/documen yun in this visit Monitor patient's vital signs every home health visit Disciplines: Senior Living Monitor patient's vital signs every home health visit. 06/17/2020 Active 1 goal linked to scheduled/documen yun intervention 1 goal intervention scheduled/documen yun in this visit Infection Prevention Disciplines: Senior Living Infection Prevention 06/17/2020 Active 1 goal linked to scheduled/documen yun intervention 2 goal interventions scheduled/documen yun in this visit Standardized Guidelines Disciplines: Senior Living Standardized Guidelines 06/17/2020 Active 1 goal linked to scheduled/documen yun intervention 1 goal intervention scheduled/documen yun in this visit Potential for post-op complication s Disciplines: Senior Living Patient at risk for post-operative complications 06/17/2020 Active 1 goal linked to scheduled/documen yun intervention 2 goal interventions scheduled/documen yun in this visit Knowledge deficit Disciplines: Senior Living Knowledge deficit relating to coronary artery bypass graft 06/17/2020 Resolved on 06/17/2020 1 goal linked to scheduled/documen yun intervention 3 goal interventions scheduled/documen yun in this visit Wound Care Disciplines: Senior Living Wound care needed: wound #1, Left wrist. 06/17/2020 Active 1 goal linked to scheduled/documen yun intervention 2 goal interventions scheduled/documen yun in this visit Wound Care Disciplines: Senior Living Wound care needed: wound #3, right knee. 06/17/2020 Active 1 goal linked to scheduled/documen yun intervention 1 goal intervention scheduled/documen yun in this visit Wound Care Disciplines: Senior Living Wound care needed: wound #4, Chest. 06/17/2020 Active 1 goal linked to scheduled/documen yun intervention 1 goal intervention scheduled/documen yun in this visit Wound Care Disciplines: Senior Living Wound care needed: wound #5, Right leg. 06/17/2020 Active 1 goal linked to scheduled/documen yun intervention 1 goal intervention scheduled/documen yun in this visit Wound Care Disciplines: Senior Living Wound care needed: wound #6, Left knee. 06/17/2020 Active 1 goal linked to scheduled/documen yun intervention 1 goal intervention scheduled/documen yun in this visit Wound Care Disciplines: Senior Living Wound care needed: wound #7, lower; anterior sternum. 06/17/2020 Active 1 goal linked to scheduled/documen yun intervention 1 goal intervention scheduled/documen yun in this visit Wound Care Disciplines: Senior Living Wound care needed 06/17/2020 Active 1 goal linked to scheduled/documen yun intervention 1 goal intervention scheduled/documen yun in this visit Knowledge deficit Disciplines: Senior Living Knowledge deficit relating to coronary artery bypass graft 06/17/2020 Resolved on 06/17/2020 1 goal linked to scheduled/documen yun intervention 3 goal interventions scheduled/documen yun in this visit Wound Risk of Infection Disciplines: Senior Living Risk of infections related to wounds 06/17/2020 Active 1 goal linked to scheduled/documen yun intervention 4 goal interventions scheduled/documen yun in this visit Knowledge Deficit - Other Disease Process and Management Disciplines: Senior Living Disease process and management, CAD 06/17/2020 Active [...] during episode of care Description: Home emergency room clinician to measure vital signs during every home health visit during episode of care. Monitor patient's vital signs every home health visit No Verbalize signs of infection Description: Verbalize signs of infection Infection Prevention No Understanding of when to notify MD in absence of home care staff Description: Understanding of when to notify MD in absence of home care staff Standardized Guidelines No Compliance and knowledge of post-op complications Description: Patient will achieve optimal health as evidenced by the patient? s compliance with reporting complications by the end of episode of care. Potential for post-op complications No Demonstrate adequate knowledge of follow-up care Description: Patient/caregiver will have adequate knowledge of follow-up care as evidenced by the ability to describe the condition, risk factors, and required life-style adaptations including compliance with meds, diet, and rehabilitation program by the end of the episode of care. Knowledge deficit No Progression towards healing Description: Wound show [...] healing by 07/08/20. Wound Care No Demonstrate adequate knowledge of follow-up care Description: Patient/caregiver will have adequate knowledge of follow-up care as evidenced by the ability to describe the condition, risk factors, and required life-style adaptations including compliance with meds, diet, and rehabilitation program by the end of the episode of care. Knowledge deficit No Knowledgeable of infection Description: : Patient will remain free of infection and able to recognizes of signs of infection by 06/20/20. Wound Risk of Infection No Understanding of disease process Description: Understanding of disease process, CAD. Knowledge Deficit - Other Disease Process and Management No Interventions Intervention Associated Problem/Goal Status Variance [...] Problem:Medications Goal:Understand and follow medication therapy Completed Instructed Pt and PCG for all medications for reconciliation, dose, frequency, clinical indications and expectations and possible side effects. Instructed for taking all medications consistently. Pt has all mediations in the home and an accurate medication list. PCG will be assisting Pt with medication management. SN will provide teaching for medication management and assessment for medication knowledge, compliance, effectiveness and side effects. Pt is in agreement with POC for medication management. Pt and PCG have good understanding of medication management. Will need continued teaching for medication management; assessment for compliance, effectiveness and side effects. Monitor effectiveness of drug therapy Description: Monitor effectiveness of patient's drug therapy Problem:Medications Goal:Understand and follow medication therapy Completed Monitor Vital Signs Description: Monitor blood pressure, pulse, oxygen saturation, respirations Problem:Monitor patient's vital signs every home health visit Goal:Measure vital signs during every home health visit during episode of care Completed Educate Patient on Infection Prevention Description: [...] and PCG verbalized understanding of content taught. Home Care Staff Absence Description: In absence of Home Care staff the patient/caregiver should call HHC and/or MD office. Problem:Standardized Guidelines Goal:Understanding of when to notify MD in absence of home care staff Completed In absence of Home Care staff the patient/caregiver should call HHC and/or MD office. Pt and PCG verbalized understanding of content taught. Perform Dressing Change Description: Wash incisions daily with soap and water, then pat dry. No lotions, powders or creams. Problem:Potential for post-op complications Goal:Compliance and knowledge of post-op complications Completed Wash incisions daily with soap and water, then pat dry. No lotions, powders or creams. Pt/PCG verbalize understanding of content taught and are independent with daily wound care. Instruct postop care Description: Instruct patient on signs/symptoms of post-operative complications (wound infection, DVT,UTI, pneumonia). Teach patient to notify Home Care Agency/doctor if tenderness, heat, firmness, localized swelling. Problem:Potential for post-op complications Goal:Compliance and knowledge of post-op complications Completed Instruct patient on signs/symptoms of post-operative complications (wound infection, DVT,UTI, pneumonia). Teach patient to notify Home Care Agency/doctor if tenderness, heat, firmness, localized swelling. Pt and PCG verbalized understanding of content taught. Instruct on Energy Conservation Description: Instruct patient/caregiver on energy conservation Problem:Knowledge deficit Goal:Demonstrate adequate knowledge of follow-up care Completed Instruct on keeping a bowel movement diary Description: Instruct patient/caregiver to keep diary of bowel movements, increasing fiber and fluid intake if appropriate, medication side effects and meds to prevent constipation Problem:Knowledge deficit Goal:Demonstrate adequate knowledge of follow-up care Completed Instruct on anticoagulation therapy Description: Instruct patient/caregiver in anticoagulant medication including side effects, safety precautions, diet precautions, need for lab monitoring. Problem:Knowledge deficit Goal:Demonstrate adequate knowledge of follow-up care Completed Wound Photo Description: Take and transmit wound photo of all wounds. Problem:Wound Care Goal:Progression towards healing Completed Photos of wounds completed. Perform dressing change Description: Wound care, wound [...] complete wound care on SNV days. Pt tolerated wound care well. Perform dressing change Description: Wound care to [...] complete wound care on SNV days. Pt tolerated wound care well. Perform dressing change Description: Wound care, wound [...] preform wound care on SNV days. Pt tolerated wound care well. Perform dressing change Description: Wound care to [...] completed by SN on SNV days. Pt tolerated wound care well. Perform dressing change Description: Wound care to [...] complete wound care on SNV days. Pt tolerated wound care well. Perform dressing change Description: Wound care to [...] completed by SN on SNV days. Pt tolerated wound care well. Skilled assessment wound Description: Full wound assessment including measurement weekly. Wound assessment each visit. Post-op CV Assessment. Please remove any jorge and/or sutures 12-14 days post-op. Please call Dr. Cordero's office for any post-op concerns. [phone] Problem:Wound Care Goal:Progression towards healing Completed Instruct on Physical Limitations Description: Instruct patient/caregiver on no lifting, pushing, pulling of more than 5-10lbs. Problem:Knowledge deficit Goal:Demonstrate adequate knowledge of follow-up care Completed Instruct patient/caregiver on no lifting, pushing, pulling of more than 5-10lbs. Pt and PCG verbalized understanding of content taught. Instruct on Energy Conservation Description: Instruct patient/caregiver on energy conservation Problem:Knowledge deficit Goal:Demonstrate adequate knowledge of follow-up care Completed Instruct on anticoagulation therapy Description: Instruct patient/caregiver in anticoagulant medication including side effects, safety precautions. Problem:Knowledge deficit Goal:Demonstrate adequate knowledge of follow-up care Completed Instruct patient/caregiver in anticoagulant medication including side effects, safety precautions. Instructed for Eliquis and ASA use. Pt and PCG verbalized understanding of content taught. Disposal of Dressing Description: Dispose of soiled dressing by place in bag then place in patient's trashcan. Problem:Wound Risk of Infection Goal:Knowledgeable of infection Completed Instruct Hand Washing Description: Instruct patient/caregiver on hand wash technique Problem:Wound Risk of Infection Goal:Knowledgeable of infection Completed Instruct patient/family/caregive r on infection control and safe disposal of dressing materials Description: Instruct patient/caregiver on how to recognized signs and symptoms of infection and when to notify EQUIPMENT ANALYST and/or physician per Wound Education Booklet. Instruct [...] bag, seal, and place in regular trash. Pt and PCG verbalized understanding of content taught. Instruct on the signs and symptoms of infection Description: Assess wound with each visit for s/sx of infection Problem:Wound Risk of Infection Goal:Knowledgeable of infection Completed Instruct on Disease Process Description: Instruct patient/caregiver on disease process and management, CAD. Problem:Knowledge Deficit - Other Disease Process and Management Goal:Understanding of disease process Completed Instruct patient/caregiver on disease process and management, CAD. Pt and PCG verbalized understanding of content taught. documented in this encounter Home Health Visit - Actions and Narratives Narratives M1028 - Comorbidities and Co -existing Conditions Recommendation: 3 - None of the above No diabetes, PVD, or PAD documented M1033 - Risk for Hospitalization Documented Answer: 7 - Currently taking 5 or more medications Recommendation: 7 - Currently taking 5 or more medications;9 - Other risk(s) not listed in 1 - 8 Patient has surgical wound M1850 - Transferring Documented Answer: 1 - Able to transfer with minimal human assistance or with use of an assistive device. Recommendation: 2 - Able to bear weight and pivot during the transfer but unable to transfer self. Per [id number], E, F patient needs assistance with transfers AQ2231 - Coding: Safety and Quality of Performance ? If helper assistance is required because patient? s performance is unsafe or of poor quality, score according to amount of assistance provided. Activities may be completed with or without assistive devices. Per documentation in [id number] patient needs assistance with lower body dressing NM8047 [id number] - Toileting Hygiene: The ability to maintain perineal hygiene, adjust clothes before and after voiding or having a bowel movement. If managing an ostomy, include wiping the opening but not managing equipment. Documented Answer: 05. Setup or clean-up assistance ? Alger sets up or cleans up; patient completes activity. Alger assists only prior to or following the activity. Recommendation: 04. Supervision or touching assistance ? Alger provides verbal cues and/or touching/steadying and/or contact guard assistance as patient completes activity. Assistance may be provided throughout the activity or intermittently. M0102 06/17/20 to NA M0104 skipped to 06/15/20 06/22/20 -RENEA Alfonso Chart review and recommendations completed by: Shyann??Tevin??ZURI SON documented in this encounter Care Teams Wetlands Conservation Laborer Relationship Specialty Start Date End Date Scott Oneill MD PCP - General Internal Medicine 04/27/20 documented as of this encounter
--- OUTSIDE RECORDS SUMMARY | 2024-04-04 01:45 | XMS_ITS | Encounter Summary ---
Author Organization [facility] Home [facility] Address [address] [place] [address] Phone Care Team Providers Care Rate Clerk Passenger Name Role Phone Scott Oneill MD Primary Care Provider [phone] Reason for Visit * Auth/Cert Specialty Diagnoses / Procedures Referred By Contac t Referred To Contact Referral ID Status Reason Start Date Expiration Date Visits Re quested Visits Authorized [id number] 1 1 Encounter Details Date Type Department Care Team (Late st Contact Info) Description 06/20/2020 12:00 PM CDT Home Care Visit [facility] [address] [address] [address] [place] [address] Britney Aparicio, [facility] Social [...] on file 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 Gender Identity Male 12/24/2023 11:25 AM CDT Sexual Orientation Straight 12/24/2023 11 :25 AM CDT documented as of this encounter Last Filed Vital Signs Vital Sign Reading Time Taken Comments Blood Pressure 136/64 06/20/2020 1:01 PM CDT Pulse 74 06/20/2020 1:01 PM CDT Temperature 36.6 ??C (97.8 ??F) 06/20/2020 1:01 PM CD T Respiratory Rate 20 06/20/2020 1:01 PM CDT Oxygen Saturation 96% 06/20/2020 1:01 PM CDT Inhaled Oxygen Concentration - - Weight 95.3 kg (210 lb) 06/20/2020 1:01 PM CDT Height - - Body Mass Index 34.95 06/19/2020 10:42 AM CDT documented in this encounter Plan of Treatment Not on file documented as of this encounter Visit Diagnoses Not on filedocumented in this encounter Home Health Visit - Care Plan Visit Details Visit Type -SN Home Visit Discipline -Custodial Problems Problem Description Start Date Status Goals Interventions Homebound Status Disciplines: Custodial unable to leave the home without the assistance of another person. Decreased strength, endurance and balance. Elevated fall risk; unable to negotiate steps and/or uneven surfaces independently.[place] ent's homebound status 06/17/2020 Active 1 goal linked to scheduled/docume nted intervention 1 goal intervention scheduled/documen yun in this visit Medications Disciplines: Custodial Management of home medications 06/17/2020 Active 1 [...] this visit Fall Precautions/Safe ty Concerns Disciplines: Custodial Alteration in safety 06/17/2020 Active 1 goal linked to scheduled/docume nted intervention 1 goal intervention scheduled/documen yun in this visit Potential for post-op complications Disciplines: Custodial Patient at risk for post-operative complications 06/17/2020 Active 1 goal linked to scheduled/docume nted intervention 1 goal intervention scheduled/documen yun in this visit Wound Care Disciplines: Custodial Wound care needed: wound #1, Left wrist. 06/17/2020 Active 1 goal linked to scheduled/docume nted intervention 1 goal intervention scheduled/documen yun in this visit Wound Care Disciplines: Custodial Wound care needed: wound #3, right knee. 06/17/2020 Active 1 goal linked to scheduled/docume nted intervention 1 goal intervention scheduled/documen yun in this visit Wound Care Disciplines: Custodial Wound care needed: wound #4, Chest. 06/17/2020 Active 1 goal linked to scheduled/docume nted intervention 1 goal intervention scheduled/documen yun in this visit Wound Care Disciplines: Custodial Wound care needed: wound #5, Right leg. 06/17/2020 Active 1 goal linked to scheduled/docume nted intervention 1 goal intervention scheduled/documen yun in this visit Wound Care Disciplines: Custodial Wound care needed: wound #6, Left knee. 06/17/2020 Active 1 goal linked to scheduled/docume nted intervention 1 goal intervention scheduled/documen yun in this visit Wound Care Disciplines: Custodial Wound care needed: wound #7, lower; anterior sternum. 06/17/2020 Active 1 goal linked to scheduled/docume nted intervention 1 goal intervention scheduled/documen yun in this visit Wound Care Disciplines: Custodial Wound care needed 06/17/2020 Active 1 goal linked to scheduled/docume nted intervention 1 goal intervention scheduled/documen uyn in this visit Reduced Circulation - CHF [...] visit during episode of care Description: Home engineering drawings checker to measure vital signs during every home [...] medication therapy Completed reviewed all meds with pt/cg, side effects and uses. pt/cg verbalize good understanding of all meds reviewed. Monitor [...] vital signs every home health visit Completed [place] Fall Precautions Description: Assess patient safety Problem:Fall [...] q 2-3 hours. drink 1.5-2L water daily. pt/cg verbalize good understanding of instructions reviewed. Perform dressing change Description: Wound care, wound [...] good understanding. Perform dressing change Description: Wound care to [...] good understanding. Perform dressing change Description: Wound care to [...] be completed by SN on SNV days. pt continues washing daily and verbalizes good understanding. Perform dressing change Description: Wound care to [...] good understanding. Perform dressing change Description: Wound care to [...] be completed by SN on SNV days. pt continues washing daily and verbalizes good understanding. Skilled assessment wound Description: Full wound assessment including measurement weekly. Wound assessment each visit. Post-op CV Assessment. Please remove any jorge and/or sutures 12-14 days post-op ( week of 06/19/20 ) . Please call Dr. Cordero's office for any post-op concerns. [phone] Problem:Wound Care Goal:Progression towards healing Completed Skilled [...] Completed documented in this encounter Care Teams Rate Clerk Passenger Relationship Specialty Start Date End Date Scott Oneill MD PCP - General Internal Medicine 04/27/20 documented as of this encounter
--- OUTSIDE RECORDS SUMMARY | 2024-04-04 01:45 | XMS_ITS | Encounter Summary ---
Author Organization [facility] Healthcare Address [address] [place] [address] Care Team Providers Care Field Services Manager Name Role Phone Scott Oneill MD Primary Care Provider [phone] Encounter Details Date Type Department Care Team (Late st Contact Info) Description 06/12/2020 7:30 AM CDT - 06/12/2020 12:10 PM CDT Surgery [facility] Operating Room [address] [place] [id number] Hernan Cordero MD [address] [facility] [address] [place], [place] [id number] CORONARY ARTERY BYPASS GRAFT x 3 using left internal mammary artery, endoharvested left radial artery, and bilateral endoharvested greater saphenous vein graft. Surgery Details Date/Time Status Location OR Service Patient Class Case Class Case Type Trauma Case? 06/12/2020 7:30 AM Posted [facility] OPERATING ROOM OR 01 Cardiothoracic Inpatient Elective Panel 1 Procedure LRB Anes Op Region Wound Class Comments CORONARY ARTERY BYPASS GRAFT x 3 using left internal mammary artery, endoharvested left radial artery, and bilateral endoharvested greater saphenous vein graft. 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 Gender Identity Male 12/24/2023 11:25 AM CDT Sexual Orientation Straight 12/24/2023 11 :25 AM CDT documented as of this encounter Last Filed Vital Signs Vital Sign Reading Time Taken Comments Blood Pressure 132/73 06/12/2020 7:17 AM CDT Pulse 64 06/12/2020 7:17 AM CDT Temperature 36.8 ??C (98.3 ??F) 06/12/2020 7:04 AM CD T Respiratory Rate 19 06/12/2020 7:17 AM CDT Oxygen Saturation 97% 06/12/2020 7:17 AM CDT Inhaled Oxygen Concentration - - Weight 96.4 kg (212 lb 8.4 oz) 06/12/2020 7:04 A M CDT Height 167.6 cm (5' 6 ) 06/12/2020 7:04 AM CDT Body Mass Index 34.41 06/12/2020 7:04 AM CDT documented in this encounter Discharge Summaries * Robyn Guerin PA - 06/15/2020 1:11 PM CDT Physician Discharge Summary Patient ID: Britton Nielsen . [id number] 1955 (65 y.o.) Admit date: 06/08/2020 Discharge date and time: 06/15/2020 Attending Physician: Hernan Cordero MD Primary Diagnosis: Multiple vessel coronary artery disease with accelerating angina Secondary Diagnoses: ?? Hypertension ?? Hyperlipidemia ?? JACQUELYN on CKD stage 3b ?? Obesity ?? Hx of DVT ?? Obesity ?? Sleep apnea ?? Peptic ulcer disease with prior embolization of the gastroduodenal artery in 2016 ?? Anemia of chronic disease and B12 deficiency Procedures performed during hospitalization: CORONARY ARTERY BYPASS GRAFT x 3 using left internal mammary artery, endoharvested left radial artery, and bilateral endoharvested greater saphenous vein graft on 06/12/20 HPI: 65 y.o. male presenting for surgical evaluation of multiple vessel coronary artery disease. Hereported exertional chest pain with radiation down the left arm, despite negative stress test he underwent cardiac catheterization yesterday by Dr. Austin and this showed a 50-60% distal left main coronary artery stenosis, a 90% lesion of the proximal circumflex at the bifurcation of an intermediateand circumflex proper, and a 90% right coronary artery lesion. He was transferred for bypass graft surgery. 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 He also has a markedly positive family history. Hospital Course: Britton Nielsen Vinnie was taken to the operating room on 06/12/20 for CABG x 3 (BURNS to distal LAD, SVG to intermediate, and SVG to right coronary posterior descending branch), performed by Dr. Cordero. Intraop patient received 2 units RBCs. Postoperatively he was taken to the CVR intubated and sedated in stable condition, supported with levophed. When hemodynamically stable, the patient was weanedfrom pressor and ventilator support. He required cardene overnight for BP control. Renal consultation was requested for management of CKD. The patient was transferred to PCU in stable condition on 06/13 and he progressed as expected. Chest tubes and pacemaker wires were discontinued without difficulty. Wounds remained clean, dry, and intact. Today patient is doing well, his pain is controlled, breathing stable on room air, and he's been ambulating the hallways. He says he is ready to go home, plan for discharge today. Discussed with Dr. Robin and nephrology. Post Op Complications: JACQUELYN Significant labs: Lab Results Component Value Date WBC 5.2 06/15/2020 HGB 9.1 (L) 06/15/2020 HCT 28.5 (L) 06/15/2020 LABPLAT 133 (L) 06/15/2020 Lab Results Component Value Date SODIUM 133 (L) 06/15/2020 POTASSIUM 4.3 06/15/2020 CHLORIDE 99 06/15/2020 CO2 22 06/15/2020 ANIONGAP 12 06/15/2020 GLUCOSE 125 06/15/2020 BUNSER 50 (H) 06/15/2020 CREATININE 2.43 (H) 06/15/2020 CALCIUM 9.0 06/15/2020 ALBUMIN 3.5 06/08/2020 ALKPHOS 87 06/08/2020 ALT 14 06/08/2020 AST 14 06/08/2020 BILITOT 0.6 06/08/2020 Lab Results Component Value Date APTT 42 (H) 06/12/2020 INR 1.4 (H) 06/12/2020 Rhythm on discharge: sinus Discharge Medications: Current Discharge Medication List START taking these medications Details aspirin 81 mg enteric coated tablet Take 1 tablet (81 mg total) by mouth daily oxyCODONE-acetaminophen (PERCOCET) 5-325 mg per tablet Take 1-2 tablets by mouth every 6 (six) hours as needed for pain Current Discharge Medication List STOP taking these medications traMADoL (ULTRAM) 50 mg tablet Comments: Reason for Stopping: Current Discharge Medication List CONTINUE these medications which have NOT CHANGED Details apixaban (ELIQUIS) 5 mg tablet Take 5 mg by mouth 2 (two) times a day furosemide (LASIX) 40 mg tablet Take 40 mg by mouth daily gabapentin (NEURONTIN) 300 mg capsule Take 300 mg by mouth nightly labetaloL (NORMODYNE,TRANDATE) 200 mg tablet Take 200 mg by mouth 2 (two) times a day potassium chloride ER 20 mEq CR tablet Take 20 mEq by mouth 2 (two) times a day Vitamin D2 1,250 mcg (50,000 unit) capsule Take 50,000 Units by mouth once a week On Friday Current Discharge Medication List CONTINUE these medications which have CHANGED Details atorvastatin (LIPITOR) 20 mg tablet Take 2 tablets (40 mg total) by mouth daily Discharge Vital Signs: Vitals: 06/15/20 1234 BP: 120/72 Pulse: 81 Resp: 18 Temp: 36.8 ??C (98.2 ??F) SpO2: 93% Code Status at Discharge: Full Code Discharge Disposition: The patient is being discharged to home in stable condition Discharge Instructions: Discharge Instructions: Physical therapy instructions provided. No tub baths. OK to shower. Incision open to air. Activity:avoid strenuous exercise, no heavy lifting, pushing, pulling greater than 5-10 lbs for 4 to 6 weeksand no driving for 4 weeks. Limit overhead reaching, general use of the upper extremity for two additional weeks. Outpatient Follow-Up: Future Appointments Date Time Provider Department Center 06/19/2020 10:45 AM Kathrin Austin MD [facility] 07/18/2020 1:15 PM Hernan Cordero MD [facility] Follow-up with Dr. Barnard next week for lab draw. Notify physician with fevers, chills, nausea, or vomiting, SOB, chest pain, or wound drainage. Arrangements were made for home health nurse to evaluate patient for wound assessment, medication compliance, general post-op assessment, and suture removal. Information on cardiac rehab was provided to the patient, and will be discussed at post-op appointment. Britton Nielsen Sr. was discharged and given a full set of written discharge instructions, and prescriptions. These were reviewed with the patient prior to discharge. documented in this encounter Medications at Time [...] 2 (two) times a day 01/26/2020 3 oxyCODONE-acetam inophen (PERCOCET) 5-325 mg per tabletIndication s:Pain Take 1-2 tablets by mouth every 6 (six) hours as needed for pain 06/15/2020 1 traMADoL (ULTRAM) 50 mg tabletIndication s:Neuropathic Pain,Pain Take 50 mg by mouth 2 (two) times a day as needed for pain. rx [id number] QTY 29 [facility] Indications: neuropathic pain, pain 06/09/2020 3 Vitamin D2 1,250 mcg (50,000 unit) capsule Take 1 capsule (50,000 Units total) by mouth once a week On Friday02/11/2020 4 documented as of this encounter Ordered Prescriptions Prescription Sig Dispense Quantity Refills Last Filled Start Date End Date aspirin 81 mg enteric coated tablet Take 1 tablet (81 mg total) by mouth daily 06/15/2020 oxyCODONE-acetamin ophen (PERCOCET) 5-325 mg per tabletIndications: Pain Take 1-2 tablets by mouth every 6 (six) hours as needed for pain 06/15/2020 1 atorvastatin (LIPITOR) 20 mg tablet Take 2 tablets (40 mg total) by mouth daily 06/15/2020 4 documented in this encounter Discharge Disposition Disposition Code Departure Means Destination Discharge to home, home health skilled care documented in this encounter Progress Notes * Shyann Jimenes, SIGN CARPENTER - 06/15/2020 1:19 PM CDT Physical Therapy 06/15/20 1319 PT Last Visit Session Type Treatment PT Received On 06/15/20 Safe Environment Arm Band Checked;Call Light within Reach;Overbed Table within Reach Subjective Agreeable to Therapy Family/Caregiver Present Yes ( present) Precautions Precautions Cardiac sternal;Fall risk;Hearing (hearing aides in) Pain Assessment Pain Score 0 - No pain Clinical Progression Not changed Cognition Orientation Oriented X4 (person, place, time, situation) Bed Mobility 1 Bed Mobility Comments 1 Sit>supine SBA. Cues for deep breathing. Transfer 1 Trials/Comments 1 Sit<>stand SBA. Ambulation 1 Distance (ft) 1 [id number] Surface 1 Level tile Device 1 No device Assistance 1 Standby Assist Quality of Gait 1 slow dandre, steady Stairs Number of Stairs 1 8 Rails 1 Left Device 1 No device Assistance 1 Standby Assist Stairs: Requires assist with 1 (SOB though SPo2 WNL) Other Comments Other PT Comments Pre HR 78, O2 95, BP 120/72. Post HR 86, O2 93, BP 144/65. Discussed cardiac packet with pt. pt is getting a shower chair. Pt will not need a device at discharge. Pt left supine in bed with call light inreach. Assessment Problem List Gait deviations;Decreased endurance;Decreased mobility;Impaired hearing Plan Plan If this is the last note, consider this the discharge summary Recommendation/Plan PT Recommendation/Plan Home with family;Home with intermittent assist Education: Patient has been educated on the role of PT, safety , precautions, mobility training andstairs. Education completed via explanation. Patient verbalized understanding Multi-Disciplinary Problems (from Physical Therapy) Active Problems Problem: PT Misc Start Date: 06/13/20 Goal Start Date End Date PT LT - [facility] 1 06/13/20 -- Goal Details: Pt to perform bed mobility with independence . Goal Start Date End Date PT [facility] - [facility] [place] 2 06/13/20 -- Goal Details: Pt to ambulate >/= 360 ft with Least restrictive assistive device and Modified independent Goal Start Date End Date PT LT - [facility] [place] 3 06/13/20 -- Goal Details: Pt to ascend/descend 5 stairs with SBA x 1 and rails and/or assistive device as needed per home set up. Goal Start Date End Date PT [facility] - [facility] 4 06/13/20 -- Goal Details: Pt to verbalize and consistently demonstrate adherence to sternal precautions during all functional mobility tasks Goal Start Date End Date PT [facility] - [facility] 5 06/13/20 -- Goal Details: Pt to complete balance test to further determine risk of falls and need for assistivedevice Cosigned by Bobbi Gomez PT at 06/15/2020 5:27 PM CDT * Alfred Mcgarry EP-C - 06/15/2020 11:38 AM CDT Inpatient Cardiac Rehab Education Patient Information Patient Name: Britton Nielsen Sr. : 1955 Room/Bed: [place] [address]/[address] Insurance: Medicare Traditional Progress Note Senior Instructional Designer: FARIDA Franco Date: 06/15/2020 Possible Referring Diagnosis for Cardiac Rehab: S/P CABG x3 Education Provided Explained my role as a Cardiac Rehab Navigator (CRN). Provided Cardiac Rehab education to pt. Family was not present. Pt was provided with Cardiac Rehab education folder. ?? Risk Factors: HTN, HLD, Obesity Discussed and provided resources for managing the above risk factors, as well as managing stress/anxiety/depression. - Briefly discussed cardiac medications, and the importance of medication adherence. Advised pt to consult their nurse, physician, and/or pharmacist if they have any questions about their medications. - Briefly discussed the benefit of lifestyle modifications such as diet (sodium and saturated fats)and exercise. Advised pt to consult their spear fisher, nurse, and/or physician if they have any questions about their diet/nutrition. ?? Cardiac Rehab: Gave pt options of facilities for Outpatient Cardiac Rehab (OCR) in their community. Explained OCR program. Pt expressed knowledge towards local OCR program - [facility] I stressed the importance/benefits of incorporating regular aerobic exercise into their lifestyle. I explained how this would assist in their recovery post-CABG, and help maintain/improve their cardiovascular health going forward. ?? I advised pt to follow physician instructions/restrictions as prescribed post-discharge. Pt verbalized understanding. ?? I recommended patient adhere to guidelines administered by therapy. Reminded patient to listen to his body during exercise, and to start slow. Reminded patient that he should be able to have a conversation through any exercise he performs. Pt verbalized understanding. ?? Exercise Education: Explained the importance of trying to gradually/safely increase exercise tolerance. Educated pt on working towards eventually trying to reach the [place] [employer] recommendations in regardsto exercise: 150+ minutes/week of light to moderate-intensity aerobic exercise. I explained how this would help improve cardiovascular function, as well as quality of life. Pt verbalized understanding. - Suggested that pt avoid strenuous exercise/exertion outside if the weather is under 40 degrees, or over 85 degrees. Explained the physiological reasoning for this suggestion - pt verbalized understanding. - Educated pt on the signs/symptoms of over-exertion: SOB, chest discomfort, musculoskeletal pain, abnormal fatigue. Explained when it would be appropriate to call Analytical Laboratory Technician's office, go to the ER, or call 911 - pt verbalized understanding. ?? Insurance Coverage: Briefly explained general insurance coverage for OCR, but assured pt that OCR facility will usuallycall insurance and inform pt of more of an approximate coverage. ?? Post-Discharge: Explained process between discharge from hospital, and getting set up in an OCR program - f/u with Analytical Laboratory Technician, [facility] f/u calls, OCR program contact. Conclusion Pt seems likely to participate in OCR. Reassured pt of importance and health care provider support of OCR. Pt verbalized understanding of education. Will complete order for OCR to be sent to Analytical Laboratory Technician. Thank you for allowing us to senior office assistant in the care of this patient. * Britney Kinney PA - 06/15/2020 11:13 AM CDT Images from the original note were not included. [facility] - Progress Note- Britton Nielsen Sr. is a 65 y.o. male - Date of : 1955 Primary care doctor: Scott Oneill MD Reason for initial consultation: 1. Angina pectoris syndrome (CMS/HCC) 2. Hypertension, unspecified type 3. Coronary artery disease involving morongo coronary artery of morongo heart with unstable angina pectoris (CMS/HCC) Current Medication List: Scheduled Meds:acetaminophen, 1,000 mg, oral, Q6H ANUEL aspirin, 325 mg, oral, Daily atorvastatin, 40 mg, oral, Nightly docusate sodium, 100 mg, oral, Daily gabapentin, 300 mg, oral, Nightly heparin, 5,000 Units, subcutaneous, Q8H ANUEL labetaloL, 200 mg, oral, BID senna, 1 tablet, oral, BID sodium chloride 0.9%, 0.5-20 mL, intra-catheter, Q8H ANUEL Continuous Infusions: PRN Meds:.bisacodyL ??? HYDROmorphone ??? ondansetron ??? oxyCODONE ??? polyethylene glycol ??? sodium chloride ??? sodium chloride 0.9% Previous weight Wt Readings from Last 3 Encounters: 06/14/20 97.6 kg (215 lb 2.7 oz) 05/22/20 96.1 kg (211 lb 12.8 oz) 05/04/20 95.6 kg (210 lb 12.8 oz) History: Mr. Nielsen is a 65 y/o patient of Dr. Flo Barnard with a hs of microscopic polyangiitis, s/p immunosuppressive rx. He is admitted now for evaluation prior to planned CABG on 06/12/20. Renal consultation was requested for management of CKD. s/p CABG x 3 06/12/20 Irizarry removed this AM CT drainage minimal BP stable on antihypertensive rx Vital Signs: Vitals: 06/15/20 0948 BP: 122/66 Pulse: 84 Resp: 18 Temp: 36.8 ??C (98.2 ??F) SpO2: 94% Intake/Output Summary (Last 24 hours) at 06/15/2020 1113 Last data filed at 06/15/2020 1103 Gross per 24 hour Intake 2080 ml Output 1550 ml Net 530 ml Physical Exam: General: Well nourished, in no distress, alert and conversant Head: No evidence of trauma, no facial edema Eyes: Conjugate gaze, equal pupils, no conjunctivitis or icterus Nose: No visible drainage or epistaxis Neck: symmetric, no visible JVD or adenopathy Chest: No SOB, normal resp effort, no wheezing Heart: Regular on monitor Abd: Does not appear distended, no reported tenderness Extremities: No LE edema noted Skin: No rash, purpura, or wounds on exposed skin Mental status: Alert, appropriate affect, intact congnition Neuro: No focal neurologic deficits identified. Gait not assessed Recent Labs Lab Units 06/15/20 0030 06/14/20 0110 WBC K/cumm 5.2 7.5 HEMOGLOBIN g/dL 9.1* 9.5* HEMATOCRIT % 28.5* 29.9* PLATELETS K/cumm 133* 129* Review of urine sediment notable for negative proteinuria and WBC. There are 1-3 RBC/hpf and rare acanthocytes. no casts at all. Recent Labs Lab Units 06/15/20 0030 06/14/20 0110 06/11/20 1141 06/08/20 1832 SODIUM mmol/L 133* 135 < > 143 POTASSIUM PLASMA mmol/L 4.3 4.3 < > 3.9 CHLORIDE mmol/L 99 102 < > 108 CO2 mmol/L 22 22 < > 25 BUN SERUM mg/dL 50* 35* < > 23 CREATININE mg/dL 2.43* 2.53* < > 1.95* CALCIUM mg/dL 9.0 8.9 < > 8.3* PHOSPHORUS PLASMA mg/dL 3.6 4.3 < > -- ALBUMIN g/dL -- -- -- 3.5 < > = values in this interval not displayed. Impression and Recommendations: CKD3 Hx MPA - s/p immunosuppressive rx - no clinical evidence of recurrent active disease CAD - s/p CABG 06/12/20 Anemia - chronic disease and B12 deficiency Renal fxn improved slightly today. Now off O2. Took 2 walks. Feeling well today Agree with current rx and plans per CTS team RENA SerranoC ([phone] - office - fax * Robyn Todd, RD - 06/15/2020 10:12 AM CDT Nutrition Follow-up Progress Note Encounter Date: 06/15/20 10:12 AM Nutrition Progress Summary: Patient is a 65 y.o. male. Admit Dx: CAD. Admitted on 06/08/2020. Pt s/p CABG 06/12/20. Pt reports heis tolerating his meals and drinking the Levi. Reinforced to pt the need for short-term increased protein intake during recovery for wound healing. Pt states he sees a nuclear waste management engineer for his CKD. Pt receptive to diet information. Educated pt on heart healthy renal diet recommendations. Good understanding verbalized. Objective Dietary Orders (From admission, onward) Start Ordered 06/13/20 1312 Adult Diet Special; Low Fat, Low Chol, Low Na; Renal Diet effective now Question Answer Comment ([facility]) Diet type Special Fat / Sodium Restriction: Low Fat, Low Chol, Low Na Renal: Renal 06/13/20 1311 06/13/20 1304 Oral Nutrition Supplements Select Supplement: Levi - Any Flavor With Breakfast and Dinner Question: Select Supplement: Answer: Levi - Any Flavor 06/13/20 1303 Anthropometrics Weight: 97.6 kg (215 lb 2.7 oz) Admission Weight : 94.6 kg Weight Change: 1.19 kg (2.64 lbs) IBW/kg (Calculated) : 64.4 kg Height: 167.6 cm (5' 6 ) BMI Amputation Adjustment: No Weight in (lb) to have BMI = 25: 154.6 BMI (Calculated): 34.7 Intake/Output Summary (Last 24 hours) at 06/15/2020 1012 Last data filed at 06/15/2020 0900 Gross per 24 hour Intake 2680 ml Output 1430 ml Net 1250 ml Medications and Lab Review: Scheduled Meds: acetaminophen, 1,000 mg, oral, Q6H ANUEL aspirin, 325 mg, oral, Daily atorvastatin, 40 mg, oral, Nightly docusate sodium, 100 mg, oral, Daily gabapentin, 300 mg, oral, Nightly heparin, 5,000 Units, subcutaneous, Q8H ANUEL labetaloL, 200 mg, oral, BID senna, 1 tablet, oral, BID sodium chloride 0.9%, 0.5-20 mL, intra-catheter, Q8H ANUEL Continuous Infusions: PRN Meds: bisacodyL ??? HYDROmorphone ??? ondansetron ??? oxyCODONE ??? polyethylene glycol ??? sodium chloride ??? sodium chloride 0.9% Sodium Date Value Ref Range Status 06/15/2020 133 (L) 135 - 145 mmol/L Final Potassium, pl Date Value Ref Range Status 06/15/2020 4.3 3.3 - 4.9 mmol/L Final BUN Date Value Ref Range Status 06/15/2020 50 (H) 8 - 25 mg/dL Final Creatinine Date Value Ref Range Status 06/15/2020 2.43 (H) 0.80 - 1.30 mg/dL Final Phosphorus, pl Date Value Ref Range Status 06/15/2020 3.6 2.3 - 4.5 mg/dL Final Magnesium Date Value Ref Range Status 06/15/2020 2.4 1.4 - 2.5 mg/dL Final Calcium Date Value Ref Range Status 06/15/2020 9.0 8.5 - 10.3 mg/dL Final Lab Results Component Value Date HGBA1C 5.3 06/10/2020 Nursing Assessment: Last BM Date: 06/11/20 Bowel Sounds (All Quadrants): Hypoactive Jacques Scale Score: 20 Skin Integrity: Surgical incision Nutrition Needs Calculations: Calculated Energy Needs Using Equations Weight: 97.6 kg (215 lb 2.7 oz) Height: 167.6 cm (5' 6 ) Minute Ventilation (L/min): 7.4 L/min Estimated Protein Needs Type of Weight Used for Estimated Protein : Current Protein Needs Based on g/k.0 Total Protein Estimated Needs (gm): 96.4 Kcal/kg Type of Weight Used for Estimated Kcals: Current Kcal/k Total Kcal/kg Estimated Needs : 1928 Current Nutrition Issues: Nutrition Diagnosis 1: Increased nutrient needs (protein) Related to: Recent surgery Evidenced by: Physical finding Nutrition Plan: Interventions: Education, nutrition, Medical food supplement Monitoring and Evaluation: PO intake, Plan of care, Labs Goals: Patient/caregiver able to teach back understanding of role of diet in disease process prior to discharge, Adequate nutrition to meet estimated needs by next assessment Robyn Todd RD, LD * Bebe Maldonado COTA - 06/15/2020 7:07 AM CDT Occupational Therapy 06/15/20 0707 General Session Type Treatment OT Received On 06/15/20 Safe Environment Arm Band Checked Subjective Agreeable to Therapy Subjective Comment I feel really good Family/Caregiver Present No Precautions Precautions Cardiac sternal;Fall risk Pain Assessment Pain Score 5 - Moderate pain Pain Type Surgical pain Clinical Progression Not changed Pain Interventions Repositioned (pt already had his pain meds) Grooming Grooming: Where assessed Standing at sink Grooming: Level of assistance Standby Assist Grooming: Assistance with Teeth care Bathing Bathing: Where assessed Standing;Sitting;Supine, bed Bathing: Equipment utilized Grab bar;Shower chair Bathing: Level of assistance Contact Guard Assist LE Dressing LE Dressing: Where assessed Chair LE Dressing: Level of assistance Moderate Assist LE Dressing: Assistance with Don/doff R sock;Don/doff L sock Additional Activities Additional Activities Comments To simulate home functional mobility, pt ambulated 360 ft no device cga. Other Comments Comments vitals pre activity BP Assessment Prognosis Good Problem List Decreased endurance;Decreased balance;Decreased ADL independence;Decreased IADL independence;Decreased functional mobility Barriers to Discharge Current Mobility Status Plan Plan Continue with current plan;If this is the last note, consider this the discharge summary Recommendation/Plan OT Recommendation Home with family Treatment/Interventions ADL/IADL retraining;Balance Training;Endurance training;Functional mobilitytraining;Functional activity Progress Progressing toward goals Multi-Disciplinary Problems (from Occupational Therapy) Active Problems Problem: OT Ou [facility] [place] Start Date: 06/13/20 Goal Start Date End Date [facility] 1 06/13/20 -- Goal Details: Pt will complete toileting tasks and toilet transfer modified independent Goal Start Date End Date [facility] 2 06/13/20 -- Goal Details: Pt will complete LB dressing modified independent Goal Start Date End Date [facility] 3 06/13/20 -- Goal Details: Pt will complete grooming tasks at sink independently Goal Start Date End Date [facility] 4 06/13/20 -- Goal Details: Pt will complete object retrieval from varying heights modified independent to simulate ADLs and IADLs Education: Patient has been educated on the role of OT, safety, precautions, ADL training, mobilitytraining, home exercise program, body mechanics and energy conservation. Education completed via verbal instruction and return demonstration. Patient verbalized understanding Cosigned by Francy Giraldo, OT at 06/15/2020 11:22 AM CDT * Bobbi Gomez, PT - 06/14/2020 3:30 PM CDT Physical Therapy 06/14/20 1530 PT Last Visit Session Type Treatment PT Received On 06/14/20 Safe Environment Arm Band Checked;Call Light within Reach;Notified RN;Session Completed Bedside;Patient found sitting in Chair;Overbed Table within Reach Subjective Agreeable to Therapy Additional Pertinent History Chest tube removed, pt on 1.5 L O2 Precautions Precautions Fall risk;Cardiac sternal Precaution Comments PT reviews sternal precautions with patient and log rolling technique Activity Tolerance Activity Tolerance Comments At rest in chair BP 134/63, HR 78 and O2 95% on 1.5 L. After activity, BP 144/59, HR 83 and O2 93% on 1.5 L Pain Assessment Pain Assessment 0-10 Pain Score 0 - No pain Clinical Progression Not changed Cognition Orientation Oriented X4 (person, place, time, situation) Static Standing Balance Static Standing-Balance Support No upper extremity supported Static Standing-Level of Assistance Close supervision Dynamic Standing Balance Dynamic Standing-Balance Support No upper extremity supported;Unilateral upper extremity supported Dynamic Standing-Level of Assistance Close supervision;Contact guard Bed Mobility 1 Bed Mobility From 1 Edge of bed Bed Mobility Type 1 To Bed Mobility to 1 Supine Level of Assistance 1 Moderate Assist Bed Mobility Comments 1 Pt reports having elevated bed at home. PT has pt perform transfer with elevated bed. Pt needs assist lifitng MARIA T LEs onto bed and assist adjusting his trunk once laying supine. Pt reports transfer is painful. Pt uses log rolling technique with transfer. INcreased time and education spent discussing bed mobility at discharge. Pt reports spouse cane help or he can sleep in recliner temporarily. Transfer 1 Transfer From 1 Sit Transfer Type 1 To Transfer to 1 Stand Transfer Device 1 No device Transfer Level of Assistance 1 Standby Assist Ambulation 1 Distance (ft) 1 165 feet x 1, 200 feet x 1 Device 1 No device;IV pole Assistance 1 Standby Assist;Contact Guard Assist Quality of Gait 1 slow dandre, wide base of support, guarded Stairs Stair Comments up and down 4 steps with 1 rail using step to gait pattern CGA Plan Plan Continue with current plan;If this is the last note, consider this the discharge summary Recommendation/Plan PT Recommendation/Plan Home with family;Home with intermittent assist;Home Health PT Progress Progressing toward goals Education: Patient has been educated on the role of PT, safety , precautions, mobility training andstairs. Education completed via explanation, teach back and demonstration. Patient needs ongoing reinforcement. Multi-Disciplinary Problems (from Physical Therapy) Active Problems Problem: PT Misc Start Date: 06/13/20 Goal Start Date End Date PT [facility] - [facility] [place] 1 06/13/20 -- Goal Details: Pt to perform bed mobility with independence . Goal Start Date End Date PT [facility] - [facility] [place] 2 06/13/20 -- Goal Details: Pt to ambulate >/= 360 ft with Least restrictive assistive device and Modified independent Goal Start Date End Date PT [facility] 3 06/13/20 -- Goal Details: Pt to ascend/descend 5 stairs with SBA x 1 and rails and/or assistive device as needed per home set up. Goal Start Date End Date PT [facility] 4 06/13/20 -- Goal Details: Pt to verbalize and consistently demonstrate adherence to sternal precautions during all functional mobility tasks Goal Start Date End Date PT [facility] 5 06/13/20 -- Goal Details: Pt to complete balance test to further determine risk of falls and need for assistivedevice * Jono Kovacs PA - 06/14/2020 11:02 AM CDT Cardiothoracic Surgery Progress Note Subjective Chief Complaint: Multivessel coronary artery disease with accelerating angina, s/p CABG x 3 on 06/12/20 Interval History: He transferred to PCU yesterday. There were no significant events overnight. He continues to require 3L O2 nasal cannula. His pain is fairly well controlled Objective VS: BP 110/73 (BP Location: Right arm, Patient Position: Sitting) Pulse 87 Temp 37.1 ??C (98.7 ??F) (Oral) Resp 18 Ht 167.6 cm (5' 6 ) Wt 96.4 kg (212 lb 8.4 oz) SpO2 95% BMI 34.30 kg/m?? 24hr Min/Max: Temp Min: 35.9 ??C (96.6 ??F) Max: 37.1 ??C (98.7 ??F) Pulse Min: 72 Max: 87 BP Min: 110/73 Max: 150/56 Resp Min: 11 Max: 20 SpO2 Min: 93 % Max: 97 % Intake/Output Summary (Last 24 hours) at 06/14/2020 1102 Last data filed at 06/14/2020 0830 Gross per 24 hour Intake 1000 ml Output 1449 ml Net -449 ml Cardiac Telemetry: sinus rhythm Physical Exam: Gen: A&O, NAD Lungs: Diminished breath sounds bilaterally Heart: RRR Ext: Warm, mild bilateral lower extremity edema Skin: Sternal incision c/d/i Lab Review: Lab Results Lab Value Date/Time WBC 7.5 06/14/2020 0110 HGB 9.5 (L) 06/14/2020 0110 HGB 9.0 (L) 06/12/2020 1241 HCT 29.9 (L) 06/14/2020 0110 LABPLAT 129 (L) 06/14/2020 0110 SODIUM 135 06/14/2020 0110 POTASSIUM 4.3 06/14/2020 0110 CHLORIDE 102 06/14/2020 0110 CO2 22 06/14/2020 0110 ANIONGAP 11 06/14/2020 0110 BUNSER 35 (H) 06/14/2020 0110 CREATININE 2.53 (H) 06/14/2020 0110 GLUCOSE 100 06/14/2020 0759 GLUCOSE 109 06/14/2020 0110 CALCIUM 8.9 06/14/2020 0110 MAGNESIUM 2.4 06/14/2020 0110 APTT 42 (H) 06/12/2020 1312 INR 1.4 (H) 06/12/2020 1312 PT 15.0 (H) 06/12/2020 1312 Radiology Review: XR Chest 1 View [[id number]] Collected: 06/14/20 1139 Order Status: Completed Updated: 06/14/20 1142 Narrative: ?? EXAMINATION: Portable chest single view. HISTORY: Chest tube removal. FINDINGS: Single portable view of the chest is compared to prior 06/14/2020. ??Median sternotomy wires and CABG clips are redemonstrated. ??Right IJ CVC terminates in superior vena cava. Small effusions are present. ??Mild edema is similar to prior. ??Left chest tube has been removed. ??There is a small left apical pneumothorax, decreased in size from prior. Impression: ?? 1. ??Decrease in size of the small left apical pneumothorax status post chest tube removal. 2. ??Small effusions and mild edema. Assessment ?? Multivessel coronary artery disease with accelerating angina, s/p CABG x 3 on 06/12/20 ?? Hypertension ?? Hyperlipidemia ?? JACQUELYN on CKD stage 3b ?? Obesity ?? Hx of DVT ?? Obesity ?? Sleep apnea ?? Peptic ulcer disease with prior embolization of the gastroduodenal artery in 2017 Plan ?? Continue ASA for anticoagulation, will likely resume Eliquis at discharge ?? Labetalol for beta-german therapy ?? Lipitor for statin therapy ?? Stop SSI ?? Creatinine increased this morning, Nephrology Dr. Krause managing, diuretic regimen per his recommendations ?? Wean oxygen as able, encouraged incentive spirometer use and increased ambulation ?? DVT prophylaxis ?? PT/OT ?? Chest tubes and epicardial pacing wires without difficulty Plan reviewed with ROMI Heath 06/14/2020 * Cy Krause MD - 06/14/2020 8:36 AM CDT Images from the original note were not included. [facility] - Progress Note- Britton Nielsen Sr. is a 65 y.o. male - Date of : 1955 Primary care doctor: Scott Oneill MD Reason for initial consultation: 1. Angina pectoris syndrome (CMS/HCC) 2. Hypertension, unspecified type 3. Coronary artery disease involving morongo coronary artery of morongo heart with unstable angina pectoris (CMS/HCC) Current Medication List: Scheduled Meds:acetaminophen, 1,000 mg, oral, Q6H ANUEL aspirin, 325 mg, oral, Daily atorvastatin, 40 mg, oral, Nightly docusate sodium, 100 mg, oral, Daily gabapentin, 300 mg, oral, Nightly heparin, 5,000 Units, subcutaneous, Q8H ANUEL labetaloL, 200 mg, oral, BID senna, 1 tablet, oral, BID sodium chloride 0.9%, 0.5-20 mL, intra-catheter, Q8H ANUEL Continuous Infusions: PRN Meds:.bisacodyL ??? HYDROmorphone ??? ondansetron ??? oxyCODONE ??? polyethylene glycol ??? sodium chloride ??? sodium chloride 0.9% Previous weight Wt Readings from Last 3 Encounters: 06/14/20 97.6 kg (215 lb 2.7 oz) 05/22/20 96.1 kg (211 lb 12.8 oz) 05/04/20 95.6 kg (210 lb 12.8 oz) History: Mr. Nielsen is a 65 y/o patient of Dr. Flo Barnard with a hs of microscopic polyangiitis, s/p immunosuppressive rx. He is admitted now for evaluation prior to planned CABG on 06/12/20. Renal consultation was requested for management of CKD. s/p CABG x 3 06/12/20 Irizarry removed this AM CT drainage minimal BP stable on antihypertensive rx UO has been good Vital Signs: Vitals: 06/14/202111 BP: 146/56 Pulse: 97 Resp: Temp: SpO2: Intake/Output Summary (Last 24 hours) at 06/14/20202135 Last data filed at 06/14/2020 1915 Gross per 24 hour Intake 2500 ml Output 1275 ml Net 1225 ml Physical Exam: General: Well nourished, in no distress, alert and conversant Head: No evidence of trauma, no facial edema Eyes: Conjugate gaze, equal pupils, no conjunctivitis or icterus Nose: No visible drainage or epistaxis Neck: symmetric, no visible JVD or adenopathy Chest: No SOB, normal resp effort, no wheezing Heart: Regular on monitor Abd: Does not appear distended, no reported tenderness Extremities: No LE edema noted Skin: No rash, purpura, or wounds on exposed skin Mental status: Alert, appropriate affect, intact congnition Neuro: No focal neurologic deficits identified. Gait not assessed Recent Labs Lab Units 06/14/20 0110 06/13/20 0145 WBC K/cumm 7.5 8.0 HEMOGLOBIN g/dL 9.5* 10.1* HEMATOCRIT % 29.9* 31.0* PLATELETS K/cumm 129* 116* Review of urine sediment notable for negative proteinuria and WBC. There are 1-3 RBC/hpf and rare acanthocytes. no casts at all. Recent Labs Lab Units 06/14/20 0110 06/13/20 0145 06/11/20 1141 06/08/20 1832 SODIUM mmol/L 135 140 < > 143 POTASSIUM PLASMA mmol/L 4.3 5.2* < > 3.9 CHLORIDE mmol/L 102 108 < > 108 CO2 mmol/L 22 21* < > 25 BUN SERUM mg/dL 35* 25 < > 23 CREATININE mg/dL 2.53* 2.18* < > 1.95* CALCIUM mg/dL 8.9 8.6 < > 8.3* PHOSPHORUS PLASMA mg/dL 4.3 4.9* < > -- ALBUMIN g/dL -- -- -- 3.5 < > = values in this interval not displayed. Impression and Recommendations: CKD3 Hx MPA - s/p immunosuppressive rx - no clinical evidence of recurrent active disease CAD - s/p CABG 06/12/20 Anemia - chronic disease and B12 deficiency Renal fxn is worse again today, likely due to prerenal factors Will reassess renal fxn in AM I updated Dr. Barnard with the patient's progress this AM Agree with current rx and plans per CTS team Cy Krause MD [phone] - office - fax * Bebe Maldonado JAY - 06/14/2020 8:20 AM CDT Occupational Therapy 06/14/20 0820 General Session Type Treatment OT Received On 06/14/20 Safe Environment Arm Band Checked Subjective Agreeable to Therapy Subjective Comment I never used the walker before Precautions Precautions Fall risk;Cardiac sternal Pain Assessment Pain Score 0 - No pain Clinical Progression Not changed Grooming Grooming: Where assessed Standing at sink Grooming: Level of assistance Contact Guard Assist Grooming: Assistance with Teeth care LE Dressing LE Dressing: Where assessed Chair LE Dressing: Level of assistance Maximum Assist LE Dressing: Assistance with Don/doff R sock;Don/doff L sock Transfer 1 Transfer Type 1 To and from Transfer to 1 Sit;Stand Transfer Device 1 Wheeled walker Transfer Level of Assistance 1 Minimum Assist, cues for hand placement Trials/Comments 1 (initially mod a, after education in techniques min a) Additional Activities Additional Activities (Worked on sit to stand techniques 5 reps) Additional Activities Comments To simulate home functional mobility, pt ambulated 360 ft with WW Other Comments Comments vitals pre activity BP 110/73, HR 95, O2 86, post activity BP 159/64, HR 94, O2 95, on 3 L, post activity O2 97 on 3 L Assessment Prognosis Good Problem List Decreased endurance;Decreased balance;Decreased ADL independence;Decreased IADL independence;Decreased functional mobility Barriers to Discharge Current Mobility Status Plan Plan Continue with current plan;If this is the last note, consider this the discharge summary Recommendation/Plan OT Recommendation Home with family Treatment/Interventions ADL/IADL retraining;Balance Training;Endurance training;Functional mobilitytraining;Functional activity Progress Progressing toward goals Multi-Disciplinary Problems (from Occupational Therapy) Active Problems Problem: OT [facility] [place] Start Date: 06/13/20 Goal Start Date End Date OT [facility] - [facility] [place] 1 06/13/20 -- Goal Details: Pt will complete toileting tasks and toilet transfer modified independent Goal Start Date End Date OT [facility] 2 06/13/20 -- Goal Details: Pt will complete LB dressing modified independent Goal Start Date End Date OT [facility] 3 06/13/20 -- Goal Details: Pt will complete grooming tasks at sink independently Goal Start Date End Date OT [facility] 4 06/13/20 -- Goal Details: Pt will complete object retrieval from varying heights modified independent to simulate ADLs and IADLs Education: Patient has been educated on the role of OT, safety, precautions, ADL training, mobilitytraining, body mechanics and energy conservation. Education completed via verbal instruction and return demonstration. Patient and Family needs ongoing reinforcement Cosigned by Francy Giraldo OT at 06/14/2020 10:36 AM CDT * Aiyana Cole, PT - 06/13/2020 1:56 PM CDT Physical TherapyEvaluation 06/13/20 1356 General Chart Reviewed Yes Session Type Evaluation PT Received On 06/13/20 Safe Environment Arm Band Checked Subjective Agreeable to Therapy Subjective Comment Pt up in chair and agreeable to PT. Reports his butt hurst from sitting too long Additional Pertinent History Pt is a 65 yo male admit who presented for surgical eval of multivessel CAD. Pt is now s/p CABGx3 by Dr. Cordero on 06/12. PMH: CKD stage 3, DVT, HLD, HTN, former smoker Family/Caregiver Present Yes Physical Therapy-Patient Goal be independent at home. Precautions Precautions Cardiac sternal;Fall risk Precaution Comments Pt already had cardiac handout, reviewed and educated pt and further on sternal precautions Home Living Type of Home House Home Layout One level;Basement;Stairs with rails;Laundry in basement # of Steps-Railed 8 (3+5) Entrance Stairs-Rails Left Entrance Stairs-Number of Steps 5 Home Mobility Equipment Single point cane;Crutches Prior Function Level of [place] Independent with ADLs;Independent functional transfers;Independent with ambulation;Independent with homemaking with ambulation Lives With Spouse Receives Help From Spouse/Significant other ( can take time off as needed to assist with recovery) Driving Yes Vocational/Occupation Retired 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 [employer] Leisure ([place] house, wood working, walking, fixing up cars, dogs ) Fall within the last 6 months No Prior Function Comments Pt independent with all mobility and ADLs without devices at baseline Pain Assessment Pain Assessment 0-10 Pain Score 2 Pain Type Surgical pain Pain Location Chest Pain Orientation Mid Pain Frequency Constant/continuous Clinical Progression (4/10 at end of session ) Pain Interventions Rest;Repositioned;RN Notified Multiple Pain Sites Three Pain 2 Pain Score 2 2 Pain Type 2 Surgical pain Pain Location 2 Arm Pain Orientation 2 Left Clinical Progression 2 Not changed Pain 3 Pain Score 3 2 Pain Location 3 Buttocks Pain Orientation 3 Generalized Clinical Progression 3 Resolved Pain Intervention(s) 3 Repositioned Cognition Arousal/Alertness Alert Orientation Oriented X4 (person, place, time, situation) Compliance/Behavior Easy to engage Sensation Light Touch WFL Balance Balance (not completed due to taught lines in CVR ) Static Standing Balance Static Standing-Level of Assistance Close supervision Dynamic Standing Balance Dynamic Standing-Level of Assistance Contact guard Bed Mobility 1 Bed Mobility Comments 1 not observed; already up in chair Transfer 1 Trials/Comments 1 sit<> stand CGA x 1 progressing to SBA x 1 with repeated attempts; Completed 5 reps consecutively to work on technique, body mechanics and for exerise Ambulation 1 Ambulation Comments [address] x 1 minute with CGA x 1 for balance. Distance ambulation deferred due to taught lines RLE Assessment RLE Assessment WFL LLE Assessment LLE Assessment WFL PT Treatment/Exercise Comments PT Treatment/Exercise Comments incentive spirometer x 5 -7 reps with voumes 500-1000mLs Other Comments Other PT Comments Pt presents with deficits in functional mobility s/p CABG due to impaired balance, endurance and pain. Pt appropriate for continued PT to address deficits and facilitate return to highest functional level. Assessment Prognosis Good Problem List Gait deviations;Decreased strength;Impaired balance;Decreased mobility;Decreased endurance;Obesity;Pain Plan Plan Plan of care initiated;If this is the last note, consider this the discharge summary Recommendation/Plan PT Recommendation/Plan Home with family PT Frequency 3-5x/wk Treatment/Interventions Balance Training;Bed mobility;Endurance training;Equipment eval/education;Functional activity;Functional transfer training;Gait training;Parent/caregiver training and education;Stair training;Strengthening;Therapeutic activity;Therapeutic exercise;Transfer training PT Evaluation Complete Yes Vitals: HR: 79 -88 BP: 131/49 via A-line SpO2: 97% on 3.5 lpm Multi-Disciplinary Problems (from Physical Therapy) Active Problems Problem: PT Misc Start Date: 06/13/20 Goal Start Date End Date PT [facility] - [facility] [place] 1 06/13/20 -- Goal Details: Pt to perform bed mobility with independence . Goal Start Date End Date PT [facility] - [facility] [place] 2 06/13/20 -- Goal Details: Pt to ambulate >/= 360 ft with Least restrictive assistive device and Modified independent Goal Start Date End Date PT [facility] - [facility] 3 06/13/20 -- Goal Details: Pt to ascend/descend 5 stairs with SBA x 1 and rails and/or assistive device as needed per home set up. Goal Start Date End Date PT [facility] - [facility] [place] 4 06/13/20 -- Goal Details: Pt to verbalize and consistently demonstrate adherence to sternal precautions during all functional mobility tasks Goal Start Date End Date PT [facility] - [facility] [place] 5 06/13/20 -- Goal Details: Pt to complete balance test to further determine risk of falls and need for assistivedevice Education: Patient and family has been educated on the role of PT, safety , precautions and mobility training. Education completed via explanation, demonstration and handout . Patient and family verbalized understanding and needs ongoing reinforcement * Robyn Todd RD - 06/13/2020 1:06 PM CDT Initial Nutrition Assessment Reason for Assessment: Initial Nutrition Assessment Encounter Date: 06/13/20 1:11 PM Nutrition Evaluation: Patient is a 65 y.o. male. Admit Dx: CAD. Admitted on 06/08/2020, current LOS is 5 days. Pt s/p CABG06/12/20. Discussed with pt the importance of protein intake for wound healing. Levi supplement initiated. PMH of CKD stage 3 noted. Will follow regarding nutritional needs. Objective Past Medical History: Diagnosis Date ??? Arthritis ??? DVT (deep venous thrombosis) (CMS/HCC) ??? History of transfusion ??? Hyperlipidemia ??? Hypertension ??? Overweight ??? Renal failure ??? Skin cancer ??? Sleep apnea Past Surgical History: Procedure Laterality Date ??? NO PAST SURGERIES Anthropometrics Weight: 96.4 kg (212 lb 8.4 oz) Admission Weight : 94.6 kg Weight Change: 0.00 kg (0.00 lbs) IBW/kg (Calculated) : 64.4 kg Height: 167.6 cm (5' 6 ) BMI Amputation Adjustment: No Weight in (lb) to have BMI = 25: 154.6 BMI (Calculated): 34.3 Intake/Output Summary (Last 24 hours) at 06/13/2020 1311 Last data filed at 06/13/2020 1200 Gross per 24 hour Intake 704 ml Output 3095 ml Net -2391 ml Medications and Lab Review: Scheduled Meds: acetaminophen, 1,000 mg, oral, Q6H ANUEL aspirin, 325 mg, oral, Daily atorvastatin, 40 mg, oral, Nightly ceFAZolin, 2,000 mg, intravenous, Q12H docusate sodium, 100 mg, oral, Daily gabapentin, 300 mg, oral, Nightly heparin, 5,000 Units, subcutaneous, Q8H ANUEL labetaloL, 300 mg, oral, TID senna, 1 tablet, oral, BID sodium chloride 0.9%, 0.5-20 mL, intra-catheter, Q8H [facility] Continuous Infusions: insulin regular, 0-30 Units/hr, Last Rate: 1 Units/hr (06/13/20 0800) niCARdipine, 0-2.5 mcg/kg/min, Last Rate: Stopped (06/13/20 1130) sodium chloride 0.9%, 10 mL/hr, Last Rate: 10 mL/hr (06/12/20 1424) sodium chloride 0.9%, 1,000 mL PRN Meds: bisacodyL ??? dextrose ??? hydrALAZINE ??? HYDROmorphone ??? insulin lispro ??? insulin regular ??? ondansetron ??? oxyCODONE ??? polyethylene glycol ??? potassium chloride ??? sodium chloride 0.9% ??? sodium chloride 0.9% Sodium Date Value Ref Range Status 06/13/2020 140 135 - 145 mmol/L Final Potassium, pl Date Value Ref Range Status 06/13/2020 5.2 (H) 3.3 - 4.9 mmol/L Final BUN Date Value Ref Range Status 06/13/2020 25 8 - 25 mg/dL Final Creatinine Date Value Ref Range Status 06/13/2020 2.18 (H) 0.80 - 1.30 mg/dL Final Phosphorus, pl Date Value Ref Range Status 06/13/2020 4.9 (H) 2.3 - 4.5 mg/dL Final Comment: Reviewed Magnesium Date Value Ref Range Status 06/13/2020 2.7 (H) 1.4 - 2.5 mg/dL Final Calcium Date Value Ref Range Status 06/13/2020 8.6 8.5 - 10.3 mg/dL Final Lab Results Component Value Date HGBA1C 5.3 06/10/2020 Nursing Assessment: Last BM Date: 06/11/20 Bowel Sounds (All Quadrants): Hypoactive Jacques Scale Score: 19 Skin Integrity: Surgical incision Dietary Orders (From admission, onward) Start Ordered 06/13/20 1312 Adult Diet Special; Low Fat, Low Chol, Low Na; Renal Diet effective now Question Answer Comment ([facility]) Diet type Special Fat / Sodium Restriction: Low Fat, Low Chol, Low Na Renal: Renal 06/13/20 1311 06/13/20 1304 Oral Nutrition Supplements Select Supplement: Levi - Any Flavor With Breakfast and Dinner Question: Select Supplement: Answer: Levi - Any Flavor 06/13/20 1303 Nutrition Needs Calculations: Calculated Energy Needs Using Equations Weight: 96.4 kg (212 lb 8.4 oz) Height: 167.6 cm (5' 6 ) Minute Ventilation (L/min): 7.4 L/min Estimated Protein Needs Type of Weight Used for Estimated Protein : Current Protein Needs Based on g/k.0 Total Protein Estimated Needs (gm): 96.4 Kcal/kg Type of Weight Used for Estimated Kcals: Current Kcal/k Total Kcal/kg Estimated Needs : 1927 Nutritional Needs and Diagnosis: Nutrition Diagnosis 1: Increased nutrient needs (protein) Related to: Recent surgery Evidenced by: Physical finding Intervention and Monitoring: Goals: Adequate nutrition to meet estimated needs by next assessment Interventions: Medical food supplement, Encouragement Monitoring and Evaluation: PO intake, Plan of care, Labs Robyn Todd RD,LD * Cy Krause MD - 06/13/2020 9:39 AM CDT Images from the original note were not included. [facility] - Progress Note- Britton Nielsen Sr. is a 65 y.o. male - Date of : 1955 Primary care doctor: Scott Oneill MD Reason for initial consultation: 1. Angina pectoris syndrome (CMS/HCC) 2. Hypertension, unspecified type Current Medication List: Scheduled Meds:acetaminophen, 1,000 mg, oral, Q6H ANUEL aspirin, 325 mg, oral, Daily atorvastatin, 40 mg, oral, Nightly ceFAZolin, 2,000 mg, intravenous, Q12H docusate sodium, 100 mg, oral, Daily heparin, 5,000 Units, subcutaneous, Q8H ANUEL labetaloL, 200 mg, oral, BID senna, 1 tablet, oral, BID sodium chloride 0.9%, 0.5-20 mL, intra-catheter, Q8H ANUEL Continuous Infusions:insulin regular, 0-30 Units/hr, Last Rate: 1 Units/hr (06/13/20 0800) niCARdipine, 0-2.5 mcg/kg/min, Last Rate: Stopped (06/13/20 0905) sodium chloride 0.9%, 10 mL/hr, Last Rate: 10 mL/hr (06/12/20 1424) sodium chloride 0.9%, 1,000 mL PRN Meds:.bisacodyL ??? dextrose ??? hydrALAZINE ??? HYDROmorphone ??? insulin lispro ??? insulin regular ??? ondansetron ??? oxyCODONE ??? polyethylene glycol ??? potassium chloride ??? sodium chloride 0.9% ??? sodium chloride 0.9% Previous weight Wt Readings from Last 3 Encounters: 06/12/20 96.4 kg (212 lb 8.4 oz) 05/22/20 96.1 kg (211 lb 12.8 oz) 05/04/20 95.6 kg (210 lb 12.8 oz) History: Mr. Nielsen is a 65 y/o patient of Dr. Flo Barnard with a hs of microscopic polyangiitis, s/p immunosuppressive rx. He is admitted now for evaluation prior to planned CABG on 06/12/20. Renal consultation was requested for management of CKD. s/p CABG x 3 06/12/[address] drainage minimal BP stable on antihypertensive rx (now off nicardipine) UO good Vital Signs: Vitals: 06/13/20 0905 BP: Pulse: 73 Resp: 13 Temp: SpO2: 92% Intake/Output Summary (Last 24 hours) at 06/13/2020 0939 Last data filed at 06/13/2020 0900 Gross per 24 hour Intake 4054 ml Output 6725 ml Net -2671 ml Physical Exam: General: Well nourished, in no distress, alert and conversant Head: No evidence of trauma, no facial edema Eyes: Conjugate gaze, equal pupils, no conjunctivitis or icterus Nose: No visible drainage or epistaxis Neck: symmetric, no visible JVD or adenopathy Chest: No SOB, normal resp effort, no wheezing Heart: Regular on monitor Abd: Does not appear distended, no reported tenderness Extremities: No LE edema noted Skin: No rash, purpura, or wounds on exposed skin Mental status: Alert, appropriate affect, intact congnition Neuro: No focal neurologic deficits identified. Gait not assessed Recent Labs Lab Units 06/13/20 0145 06/12/20 1312 WBC K/cumm 8.0 9.0 HEMOGLOBIN g/dL 10.1* 9.7* HEMATOCRIT % 31.0* 30.1* PLATELETS K/cumm 116* 98* Review of urine sediment notable for negative proteinuria and WBC. There are 1-3 RBC/hpf and rare acanthocytes. no casts at all. Recent Labs Lab Units 06/13/20 0145 06/12/20 1953 06/12/20 1633 06/12/20 1312 06/11/20 1141 06/08/20 1832 SODIUM mmol/L 140 -- -- 137 < > 143 POTASSIUM PLASMA mmol/L 5.2* 5.2* < > 4.6 < > 3.9 CHLORIDE mmol/L 108 -- -- 108 < > 108 CO2 mmol/L 21* -- -- 20* < > 25 BUN SERUM mg/dL 25 -- -- 24 < > 23 CREATININE mg/dL 2.18* -- -- 2.08* < > 1.95* CALCIUM mg/dL 8.6 -- -- 8.8 < > 8.3* PHOSPHORUS PLASMA mg/dL 4.9* -- -- 1.7* -- -- ALBUMIN g/dL -- -- -- -- -- 3.5 < > = values in this interval not displayed. Impression and Recommendations: CKD3 Hx MPA - s/p immunosuppressive rx - no clinical evidence of recurrent active disease CAD - s/p CABG 06/12/20 Anemia - chronic disease and B12 deficiency Will continue ELKIN as Retacrit - and subcut B12 Agree with current rx and plans per CTS team Cy Krause MD [phone] - office - fax * Francy Giraldo, OT - 06/13/2020 8:39 AM CDT Occupational Therapy 06/13/20 0839 General Chart Reviewed Yes Session Type Evaluation OT Received On 06/13/20 Safe Environment Arm Band Checked;Call Light within Reach;Notified RN Subjective Agreeable to Therapy Additional Pertinent History Pt is a 65 yo male admit who presented for surgical eval of multivessel CAD. Pt is now s/p CABGx3 by Dr. Cordero on 06/12. PMH: CKD stage 3, DVT, HLD, HTN, former smoker Family/Caregiver Present No Occupational Therapy-Patient Goal return home at [facility] Precautions Precautions Cardiac sternal;Fall risk Precaution Handout Issued Yes Precaution Comments Pt educated on all sternal precautions as well as briefly reviewed contents of cardiac rehab packet including driving restriction, progressive walking program, and BUE HEP Home Living Type of Home House Home Layout One level;Basement;Stairs with rails # of Steps-Railed 8 (3+5 to basement) Home Access Stairs to enter with rails Entrance Stairs-Rails Right Entrance Stairs-Number of Steps 5 Bathroom Shower/Tub Tub/shower unit Bathroom Toilet Standard Home Mobility Equipment Single point cane Additional Comments Pt reports not using any AD nor DME at baseline Prior Function Level of [place] Independent with ADLs;Independent functional transfers;Independent with ambulation;Independent with homemaking with ambulation Lives With Spouse Driving Yes ADL Assistance Independent Instrumental ADL (IADL) Assistance Independent Vocational/Occupation 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 [employer] Fall within the last 6 months No Prior Function Comments Pt reports works during the day and he completes all the cooking and cleaning Grooming Grooming: Where assessed Edge of bed Grooming: Level of assistance Standby Assist Grooming: Assistance with Teeth care;Wash/dry face LE Dressing LE Dressing: Where assessed Supine, bed LE Dressing: Level of assistance Maximum Assist LE Dressing: Assistance with Don/doff R sock;Don/doff L sock Pain Assessment Pain Assessment 0-10 Pain Score ( just discomfort ) Pain Type Surgical pain Pain Location Chest Pain Orientation Mid Clinical Progression Not changed Cognition Overall Cognitive Status WFL Arousal/Alertness Alert;Appropriate responses to stimuli Attention Span Appears intact Memory Appears intact Current communication Appears Intact Orientation Oriented X4 (person, place, time, situation) Following Commands Follows one step commands without difficulty Safety Judgment Decreased awareness of need for assistance Awareness of Errors Assistance required to identify errors made Insight Decreased awareness of deficits Problem Solving Assistance required to identify errors made Compliance/Behavior Easy to engage Perseveration Not present Bed Mobility 1 Bed Mobility Comments 1 Supine>sitting EOB maximal assist for force production of trunk and hips. pt initiated movement of BLEs towards EOB but required assist to complete. HOB elevated approx 30 degrees. Verbal cues required for sternal precautions Transfer 1 Trials/Comments 1 Sit<>stand from elevated EOB minimal assist for force production. No AD used. Upon standing pt took approx 4 steps to the R CGA for safety. RUE Assessment RUE Assessment WFL LUE Assessment LUE Assessment WFL OT Treatment/Exercise Comments OT Treatment/Exercise Comments Pt educated on incentive spirometer use and completed 5x with [id number] mL Other Comments Comments Pre OT: BP 118/55, HR 74, O2 95% on 6L while supine in bed. Post OT: BP 118/55, HR 68, O2 97% on 6L while seated EOB. Pt left seated EOB with all needs met at end of session Assessment Prognosis Good Problem List Decreased endurance;Decreased balance;Decreased functional mobility;Decreased ADL independence;Decreased IADL independence Barriers to Discharge Current Mobility Status Plan Plan Plan of care initiated;If this is the last note, consider this the discharge summary Recommendation/Plan OT Recommendation Home with 24 hour supervision;Home with family OT Recommendation/Plan Comments Pt reports works 6am-3pm during the week and will be unable totake off work. Pt has daughter but he is unable if she can take off work. Will continue to follow OT Frequency 3-5x/wk Treatment/Interventions ADL/IADL retraining;Balance Training;Endurance training;Functional activity;Functional mobility training;Functional transfer training;Parent/caregiver training and education;Strengthening;Therapeutic activity;Therapeutic exercise Progress Progressing toward goals OT Evaluation Complete Yes Multi-Disciplinary Problems (from Occupational Therapy) Active Problems Problem: OT [facility] Start Date: 06/13/20 Goal Start Date End Date OT [facility] 1 06/13/20 -- Goal Details: Pt will complete toileting tasks and toilet transfer modified independent Goal Start Date End Date [facility] 2 06/13/20 -- Goal Details: Pt will complete LB dressing modified independent Goal Start Date End Date [facility] 3 06/13/20 -- Goal Details: Pt will complete grooming tasks at sink independently Goal Start Date End Date [facility] 4 06/13/20 -- Goal Details: Pt will complete object retrieval from varying heights modified independent to simulate ADLs and IADLs Education: Patient has been educated on the role of OT, safety, precautions, ADL training, mobilitytraining and body mechanics. Education completed via verbal instruction, return demonstration and handouts. Patient verbalized understanding, demonstrated understanding and needs ongoing reinforcement * Stacey Haskins NP - 06/13/2020 7:18 AM CDT Images from the original note were not included. [facility] CVR Daily Progress Note- Patient: Britton Nielsen Sr. : 1955 Age: 65 y.o. male Admiting Physician: Hernan Cordero MD Dining Services Manager: Yaneth Bull MD Shift: [facility] CVR AM Interval History: - Nicardipine up to 2.5 overnight. PRN hydralazine added and nitropaste. Admitted to the hospital on 06/08/2020 5:46 PM for CAD Procedures: 06/12: CORONARY ARTERY BYPASS GRAFT x 3 using left internal mammary artery, endoharvested ??left radial artery, and bilateral endoharvested ??greater saphenous vein graft.?? Left internal mammary artery to the distal LAD, saphenous vein graft to the intermediate, saphenousvein graft to the right coronary posterior descending branch Temp: [37 ??C (98.6 ??F)-37.5 ??C (99.5 ??F)] 37 ??C (98.6 ??F) Pulse: [61-95] 90 Resp: [8-23] 16 SpO2: [92 %-100 %] 94 % Arterial Line BP: (108-149)/(41-62) 125/55 FiO2 (%): [40 %-50 %] 40 % PAP: (22-138)/(4-41) 33/16 CVP: [2 mmHg-9 mmHg] 9 mmHg CO: [5.6 L/min-8.9 L/min] 8.2 L/min CI: [2.8 L/min/m2-4.3 L/min/m2] 4 L/min/m2 Scheduled Meds: ??? acetaminophen, 1,000 mg, Q6H ANUEL OR [DISCONTINUED] acetaminophen, 1,000 mg, Q6H ANUEL OR [DISCONTINUED] acetaminophen, 650 mg, Q6H ANUEL ??? aspirin, 325 mg, Daily OR [DISCONTINUED] aspirin, 325 mg, Daily OR [DISCONTINUED] aspirin, 300 mg, Daily ??? ceFAZolin, 2,000 mg, Q12H ??? docusate sodium, 100 mg, Daily OR [DISCONTINUED] docusate, 100 mg, Daily ??? furosemide, 40 mg, Once ??? heparin, 5,000 Units, Q8H ANUEL ??? labetaloL, 200 mg, BID ??? nitroglycerin, 2 inch, Once ??? senna, 1 tablet, BID OR [DISCONTINUED] senna, 8.8 mg, BID ??? sodium chloride 0.9%, 0.5-20 mL, Q8H ANUEL ??? vancomycin, 1,500 mg, Q24H Physical Exam: Neuro: Alert, oriented Cardiovascular: periphery warm with palpable pulses, no significant edema Pulmonary: On NC, normal respiratory rate and effort : Irizarry in place draining clear yellow urine Skin: Warm, dry, Sternal incision with OR dressing clean, dry, intact. SVG site with dermabond RECREATIONAL ASSISTANT. Drains: Chest tubes to -20 suction with serosanguinous drainage, no air leak. Lines: R IJ central line, R radial kirill with dressings clean, dry, intact. Infusions: insulin regular, 0-30 Units/hr, Titrated ??? niCARdipine, 0-2.5 mcg/kg/min, Titrated ??? sodium chloride 0.9%, 10 mL/hr, Continuous ??? sodium chloride 0.9%, 1,000 mL, Continuous Adult Vent Mode: Continuous positive airway pressure FiO2 (%): [40 %-50 %] 40 % S RR: [16] 16 S VT: [600 mL] 600 mL PEEP/CPAP/EPAP (cm H2O): [5 cm H20] 5 cm H20 Pressure Support (cm H2O): [8 cm H20] 8 cm H20 PIP: [0 cm H2O-27 cm H2O] 15 cm H2O Minute Ventilation (L/min): [0 L/min-10.7 L/min] 7.4 L/min MAP (cmH2O): [0-10] 7 O2 Therapy: Supplemental oxygen O2 Del Method: Nasal cannula FiO2 (%): 40 % O2 Flow Rate (L/min): 5 L/min PRN Meds: bisacodyL, 10 mg ??? dextrose, 125 mL ??? hydrALAZINE, 20 mg, 20 mg at 06/13/20 0515 ??? HYDROmorphone, 0.2 mg, 0.2 mg at 06/13/20 0400 ??? insulin lispro, 1-14 Units ??? insulin regular, 2-14 Units ??? ondansetron, 4 mg, 4 mg at 06/12/20 2315 ??? oxyCODONE, 5 mg, 5 mg at 06/13/20 0205 ??? polyethylene glycol, 17 g ??? potassium chloride, 20 mEq ??? sodium chloride 0.9%, 0.5-20 mL ??? sodium chloride 0.9%, 10-30 mL Date 06/12/20 07 - 06/13/20 0659 06/13/20 07 - 06/14/20 0659 Shift 1373-8477 6682-7745 24 Hour Total 9086-1414 6897-7426 24 Hour Total INTAKE P.O. 240 240 I.V.(mL/kg) 1050(10.9) 264(2.7) 1314(13.6) Blood 500 500 IV Piggyback 2000 2000 Shift Total(mL/kg) 3550(36.8) 504(5.2) 4054(42.1) OUTPUT Urine(mL/kg/hr) 930(0.8) 1140(1) 2070(0.9) Other 3800 3800 Chest Tube 165 165 330 Shift Total(mL/kg) 4895(50.8) 1305(13.5) 6200(64.3) [facility] -6121 -495 -5746 Weight (kg) 96.4 96.4 96.4 96.4 96.4 96.4 LDA Introducer 06/12/20 Right Internal jugular (Active) Number of days: 0 CVC Triple Lumen 06/12/20 Right Internal jugular (Active) Number of days: 0 PA Catheter 7.5 Fr. Right Other (Comment) (Active) Number of days: 0 Arterial Line 06/12/20 Right Radial (Active) Number of days: 0 Pacer Wires (Active) Number of days: 0 Urethral Catheter Temperature probe 16 Fr. (Active) Number of days: 0 Chest Tube Left Pleural (Active) Number of days: 0 Chest Tube B Anterior Mediastinal (Active) Number of days: 0 Recent Labs Lab Units 06/13/20 0145 06/12/20 1953 06/12/20 1633 06/12/20 1312 06/12/20 1312 06/12/20 0321 06/12/20 03206/11/20 1141 06/08/20 1832 SODIUM mmol/L 140 -- -- -- 137 -- 139 < > 143 POTASSIUM PLASMA mmol/L 5.2* 5.2* 5.1* < > 4.6 < > 4.0 < > 3.9 CHLORIDE mmol/L 108 -- -- -- 108 -- 105 < > 108 CO2 mmol/L 21* -- -- < > 20* < > 23 < > 25 BUN SERUM mg/dL 25 -- -- -- 24 -- 26* < > 23 CREATININE mg/dL 2.18* -- -- -- 2.08* -- 2.20* < > 1.95* MAGNESIUM mg/dL 2.7* -- -- -- 2.9* -- -- -- 1.6 PHOSPHORUS PLASMA mg/dL 4.9* -- -- -- 1.7* -- -- -- -- < > = values in this interval not displayed. Recent Labs Lab Units 06/08/20 1832 ALK PHOS Units/L 87 ALT Units/L 14 AST Units/L 14 BILIRUBIN TOTAL mg/dL 0.6 Recent Labs Lab Units 06/13/20 0145 06/12/20 1312 06/12/20 1241 06/12/20 1211 06/12/20 1210 WBC K/cumm 8.0 9.0 -- 8.4 -- HEMOGLOBIN, POC g/dL -- -- 9.0* -- < > HEMOGLOBIN g/dL 10.1* 9.7* -- 9.0* -- HEMATOCRIT % 31.0* 30.1* -- 27.4* -- HEMATOCRIT POC % -- -- 27.0* -- < > PLATELETS K/cumm 116* 98* -- 91* -- < > = values in this interval not displayed. Recent Labs Lab Units 06/12/20 1312 06/12/20 1211 06/12/20 0321 06/09/20 0259 06/08/20 1832 APTT sec 42* 73* 75* < > 59* INR 1.4* 1.5* -- -- 1.2 < > = values in this interval not displayed. Recent Labs Lab Units 06/12/20 1627 06/12/20 1312 06/12/20 1241 PH ART 7.33* 7.30* 7.34* PCO2 ART mmHg 42 39 -- PO2 ART mmHg 76* 116* -- PO2 ARTERIAL POC mmHg -- -- 291* HCO3 ART POC mmol/L -- -- 21 HCO3 ART (CALC) mmol/L 22 19* -- POCT BASE EXCESS, ARTERIAL mmol/L -- -- -5.2* BASE EXC ART mmol/L -4 -7 -- O2 SAT ART (CALC) % 94 98 -- IMPRESSION/PLAN: Acute Postoperative Pain Expected postop pain following cardiac surgery. - Scheduled Tylenol and PRN Oxycodone - Dilaudid for breakthrough for 24 hours - Resume home gabapentin ?? Hypertension Post bypass SUZAN w/ normal biventricular function on no inotropic support. Vasopressors quickly weaned off and started on nicardipine for HTN. - Wean nicardipine for SBP < 140 - Labetalol 300mg TID - 40 Lasix for diuresis ?? Acute Respiratory Insufficiency Extubated postop without incident. Currently on NC. - Pulmonary hygiene with IS, acapella, and C&DB after extubation - Wean supplemental O2 for SpO2 > 92% - 40 Lasix Acute kidney injury on chronic kidney disease stage 3, hyperkalemia Admission Cr 1.97, Cr up to 2.2 preop. Likely some JACQUELYN due to dye from recent LHC. Intraop K 6.1 post bypass treated with 10 units insulin and dextrose. K has since been stable at 5.2. - Lasix - Repeat BMP at 1400 - Avoid nephrotoxins and renally dose medications - Avoid hypotension ?? Acute Blood Loss Anemia Expected following cardiac surgery.Received 2 PRBC intraop. - No current indication for transfusion, consider if patient becomes hemodynamically unstable with increased pressor requirements or Hgb < 8 and symptomatic - CBC daily ?? Deep vein thrombosis (POA) History of DVT in BLE treated with Eliquis. - SCDs and SQH POD 1 for DVT PPX - Hold Eliquis, per sign out from Dr. Cordero yesterday will likely plan to resume on POD 2-3 ?? Leukocytosis Likely inflammatory following procedure. - No current indication for culture, consider if temp > 38.5 - Continue periop antibiotics to completion ?? CAD, s/p CABG: Post-op care to include: - ASA, statin - Beta german - Hold ANGELICA/ARB in the post-op setting (CABG) - Chest tubes to -20 suction - Epicardial wires capped ?? ICU Standards: HOB >30 deg: Yes DVT prophylaxis:??SCDs, SQH Stress ulcer prophylaxis:?Acid suppression until extubated Nutrition:?ADAT after extubation Glycemic control: Follow CVR standard Bowel regimen: Colace and Senna for bowel regimen. PRN miralax and dulcolax ID. Therapies: PT/OT for decreased mobility when able to participate Goals of care:?Full code During the day, the assessment and plan have been reviewed with the critical care attending physician & CT Surgeon. Stacey Haskins NP * Yevgeniy Gonzalez PA - 06/12/2020 11:19 PM CDT CVR Critical Care Progress Note Shifts: LIBBY Shift Options: [facility] CVR PM Britton Nielsen Sr. 1955 [facility] DAY#5 Subjective Patient is a 65 y.o. male admitted to the hospital on 06/08/2020 5:46 PM PROCEDURES: Date of Surgery 06/12/2020 * CORONARY ARTERY BYPASS GRAFT x 3 using left internal mammary artery, endoharvested left radial artery, and bilateral endoharvested greater saphenous vein graft. INTERVAL EVENTS: 06/12 -To CVR for monitoring and support while recovering from CPB and anesthesia. NIGHT - Cardene at 2, SBP 150's --> Hydralazine dosing until ready to resume BB or adding CCB. -BP remained high --> Nitropaste trial with good effect. Start BB in the morning. CUMMULATIVE EVENTS: 06/12 [address] Cordero. Anesthesia reported an easy airway. Post-procedure SUZAN revealed normal biV function without inotropic support. OR totals include: 2 PRBC. OR course notable for hyperkalemia with K 6.1 treated with 10 units insulin and D50 at the end ofthe case. To CVR intubated, sedated on propofol, and supported on norepi 0.05mcg/kg/min. HPI: 65 y.o. male with PMH of coronary artery disease, morbid obesity, stage 3 kidney disease with glomerulonephritis in the past, deep vein thrombosis in bilateral lower extremities (on Eliquis), hyperlipidemia, hypertension and former smoker. His CP on exertion progressing to severe CP at rest. 06/08 Admit for CABG but waited for Eliquis to washout. CC showed a 50-60% distal LM, 90% lesion of the proximal Cx at the bifurcation of an IM and Cx proper, and 90% RCA. Now on heparin drip and Tridil added for Severe CP episodes associated with inf ST depressions. Past Medical History: Diagnosis Date ??? Arthritis ??? DVT (deep venous thrombosis) (CMS/HCC) ??? History of transfusion ??? Hyperlipidemia ??? Hypertension ??? Overweight ??? Renal failure ??? Skin cancer ??? Sleep apnea Past Surgical History: Procedure Laterality Date ??? NO PAST SURGERIES HOME MEDICATIONS : apixaban (ELIQUIS) 5 mg tablet atorvastatin (LIPITOR) 20 mg tablet furosemide (LASIX) 40 mg tablet gabapentin (NEURONTIN) 300 mg capsule labetaloL (NORMODYNE,TRANDATE) 200 mg tablet potassium chloride ER 20 mEq CR tablet traMADoL (ULTRAM) 50 mg tablet Vitamin D2 1,250 mcg (50,000 unit) capsule No Known Allergies Objective Medications: Scheduled Meds:acetaminophen, 1,000 mg, oral, Q6H ANUEL aspirin, 325 mg, oral, Daily atorvastatin, 40 mg, oral, Nightly ceFAZolin, 2,000 mg, intravenous, Q12H docusate sodium, 100 mg, oral, Daily heparin, 5,000 Units, subcutaneous, Q8H ANUEL labetaloL, 200 mg, oral, BID senna, 1 tablet, oral, BID sodium chloride 0.9%, 0.5-20 mL, intra-catheter, Q8H ANULE vancomycin, 1,500 mg, intravenous, Q24H Continuous Infusions:insulin regular, 0-30 Units/hr, Last Rate: 1 Units/hr (06/13/20 0800) niCARdipine, 0-2.5 mcg/kg/min, Last Rate: Stopped (06/13/20904) sodium chloride 0.9%, 10 mL/hr, Last Rate: 10 mL/hr (06/12/20 1424) sodium chloride 0.9%, 1,000 mL PRN Meds:bisacodyL, 10 mg ??? dextrose, 125 mL ??? hydrALAZINE, 20 mg, 20 mg at 06/13/20 0515 ??? HYDROmorphone, 0.2 mg, 0.2 mg at 06/13/20 0400 ??? insulin lispro, 1-14 Units ??? insulin regular, 2-14 Units ??? ondansetron, 4 mg, 4 mg at 06/13/20 0820 ??? oxyCODONE, 5 mg, 5 mg at 06/13/20 0822 ??? polyethylene glycol, 17 g ??? potassium chloride, 20 mEq ??? sodium chloride 0.9%, 0.5-20 mL ??? sodium chloride 0.9%, 10-30 mL Vitals: Temp: [37 ??C (98.6 ??F)-37.5 ??C (99.5 ??F)] 37 ??C (98.6 ??F) Pulse: [61-95] 73 BP: (131)/(59) 131/59 Resp: [8-23] 13 SpO2: [92 %-100 %] 92 % Arterial Line BP: (108-149)/(41-75) 115/53 FiO2 (%): [40 %-50 %] 40 % Fluid balnace: I/O this shift: In: - Out: 525 [Urine:500; Chest Tube:25] Intake/Output Summary (Last 24 hours) at 06/13/2020914 Last data filed at 06/13/2020 0900 Gross per 24 hour Intake 4054 ml Output 6725 ml Net -2671 ml Vent settings: Adult Vent Mode: Continuous positive airway pressure FiO2 (%): 40 % S RR: 16 PEEP/CPAP/EPAP (cm H2O): 5 cm H20 Pressure Support (cm H2O): 8 cm H20 Hemodynamic parameters: PAP: 34/20 (06/13 904) CVP: 11 mmHg (06/13 904) PCWP: -- CO: 8.2 L/min (06/13 499) CI: 4 L/min/m2 (06/13 499) SVO2: -- Pacemaker Overdrive Pacing: -- Cardiac Rhythm: Normal sinus rhythm (06/13 904) Pacer Mode: -- Physical exam: General Appearance: NAD Neurologic: A&O, follows directions & BAKER's when awake. Neck: CVC's Respiratory: Unlabored, Clear Cardiovascular: Reg rate and rhythm Gastrointestinal/ Abdomen: Soft, nontender, nondistended Extremities: No edema. Skin: warm and dry PACING WIRES: Disconnected ACCESS: RIJ CVC, Introducer(occupied by [place]), RA-Line DRAINS: MCT, PCT, Irizarry Laboratory data: Recent Labs Lab Units 06/13/20 0145 06/12/20 1312 06/12/20 1241 06/12/20 1211 06/12/20 1210 06/12/20 0908 06/12/20 0321 06/11/20 1141 06/11/20 114 WBC K/cumm 8.0 9.0 -- 8.4 -- -- 5.1 -- 5.0 HEMOGLOBIN, POC g/dL -- -- 9.0* -- 9.2* < > -- -- -- HEMOGLOBIN g/dL 10.1* 9.7* -- 9.0* -- -- 8.2* < > 8.3* HEMATOCRIT % 31.0* 30.1* -- 27.4* -- -- 25.5* < > 26.3* HEMATOCRIT POC % -- -- 27.0* -- 28.0* < > -- -- -- PLATELETS K/cumm 116* 98* -- 91* -- -- 148* -- 155 < > = values in this interval not displayed. Recent Labs Lab Units 06/13/20 0145 06/12/20 1953 06/12/20 1633 06/12/20 1312 06/12/20 0321 06/11/20 1141 06/11/20 1141 06/08/20 1832 06/08/20 183 SODIUM mmol/L 140 -- -- 137 139 -- 139 -- 143 POTASSIUM PLASMA mmol/L 5.2* 5.2* 5.1* 4.6 4.0 < > 4.9 < > 3.9 CHLORIDE mmol/L 108 -- -- 108 105 -- 105 -- 108 CO2 mmol/L 21* -- -- 20* 23 -- 23 -- 25 BUN SERUM mg/dL 25 -- -- 24 26* -- 27* -- 23 CREATININE mg/dL 2.18* -- -- 2.08* 2.20* -- 2.17* -- 1.95* MAGNESIUM mg/dL 2.7* -- -- 2.9* -- -- -- -- 1.6 < > = values in this interval not displayed. Recent Labs Lab Units 06/13/20 0145 06/12/20 1312 06/12/20 1241 06/12/20 0908 06/12/20 03206/11/20 11406/08/20 1832 CALCIUM mg/dL 8.6 8.8 -- -- 8.7 9.0 8.3* CALCIUM ION mg/dL 4.70 5.11 -- -- -- -- -- CALCIUM ION POC mg/dL -- -- 3.80* < > -- -- -- < > = values in this interval not displayed. Recent Labs Lab Units 06/13/20 0813 06/13/20 0528 06/13/20 0403 06/13/20 0325 06/13/20 0145 06/12/20 2350 06/12/20 2249 06/12/20 21506/12/20 2059 GLUCOSE mg/dL -- -- -- -- 123 -- -- -- -- POC GLUCOSE MONITOR mg/dL 112 122 118 119 107 121 122 117 123 Recent Labs Lab Units 06/12/20 1312 06/12/20 1211 06/12/20 03206/11/20 11406/10/20 0211 06/09/20 0259 06/08/20 1832 PROTIME (PT) sec 15.0* 16.8* -- -- -- -- 12.8 INR 1.4* 1.5* -- -- -- -- 1.2 APTT sec 42* 73* 75* 72* 93* < > 59* < > = values in this interval not displayed. Recent Labs Lab Units 06/12/20 1627 06/12/20 1312 06/12/20 1241 PH ART 7.33* 7.30* 7.34* PCO2 ART mmHg 42 39 -- PO2 ART mmHg 76* 116* -- PO2 ARTERIAL POC mmHg -- -- 291* POCT BASE EXCESS, ARTERIAL mmol/L -- -- -5.2* BASE EXC ART mmol/L -4 -7 -- Resulted in the Past 12 Months 06/10/20 0211 HGBA1C 5.3 No results for input(s): [id number] in the last 8736 hours. Radiology/Diagnostic/Micro Review SUZAN Red Kamara MD 06/12/2020 3:04 PM SUZAN Date/time: Staff: Performed by: Anesthesiologist: Red Kamara MD Preprocedure checklist: patient identified, procedure contraindications assessed, procedure consent, risks, benefits and alternatives discussed, monitors and equipment checked and SUZAN probe inserted into esophagus using lubricating jelly General procedure Information: Reason for procedure/indications: assessment of surgical repair Performed: personally Procedure performed at surgeon's request: yes Results discussed with surgeon: yes Images submitted to archive: yes Patient location: OR Intubated: yes Bite blocked placed: yes Probe Insertion: easy Complications: no Probe type: adult Modalities: 2D imaging, continuous wave Doppler, pulsed wave Doppler and color Doppler Billing information: Physician requesting echo: Hernan Cordero MD CPT code: SUZAN placement and diagnostic exam, non-congenital (54288) ICD code(s) for medical necessity: R93.1 - Abnormal findings on diagnostic imaging of heart and coronary circulation Echocardiographic and doppler measurements: Ventricles: Left ventricle: Cavity size: normal Global function: normal LVEF%: normal Right ventricle: Cavity size: normal Global function: normal RVEF%: normal Interventricular septum: normal Regional function: 1- Basal anteroseptal: normal 2- Basal anterior: normal 3- Basal anterolateral: normal 4- Basal inferolateral: normal 5- Basal inferior: normal 6- Basal inferoseptal: normal 7- Mid anteroseptal: normal 8- Mid anterior: normal 9- Mid anterolateral: normal 10- Mid inferolateral: normal 11- Mid inferior: normal 12- Mid inferoseptal: normal 13- Apical anterior: normal 14- Apical lateral: normal 15- Apical inferior: normal 16- Apical septal: normal 17- [place]: normal Valves: Aortic Valve: Annulus: normal Leaflet morphology: normal Leaflet motion: normal Stenosis: none Regurgitation: none Mitral valve: Annulus: normal Leaflet morphology anterior: normal Leaflet morphology posterior: normal Leaflet motion anterior: normal Leaflet motion posterior: normal Regurgitation: trace Tricuspid valve: Annulus: normal Leaflet morphology: normal Leaflet motion: normal Regurgitation: trace Pulmonic valve: Annulus: normal Regurgitation: absent Aorta: Ascending aorta: Size: normal Aortic arch: Size: normal Descending aorta: Size: normal Atria: Right atrium: Size: normal Left atrium: Size: dilated Left atrial appendage: normal Interatrial septum: normal Diastolic function and other findings: Pericardium: normal Left pleural effusion: none Right pleural effusion: normal Pulmonary venous flow: blunted systolic flow Pre-procedure SUZAN exam summary: There is normal RV size and systolic function. There is normal LV size and systolic function. There are no regional wall motion abnormalities. There is trace MR and TR. The aortic valve is normal. There is no PFO identified on color flow doppler. The left atrial appendage is normal. Postprocedure (follow-up) SUZAN exam: LV: normal systolic function RV: normal systolic function Mitral valve: mild MR Pericardium: normal Left pleural: normal Right pleural: normal Postprocedure (follow-up) SUZAN exam comments: Status post 3 vessel CABG. Exam performed without inotropic support. There is normal biventricular systolic function. There are no regional wall motion abnormalities. There is mild MR. No changes with chest closure. Attestation Statement: By signing this report the attending anesthesiologist certifies that he or she has personally reviewed and interpreted the echocardiogram and has reviewed and or edited and agrees with the written comments contained within the report. XR Chest 1 View - Portable Narrative: EXAM: Chest 1 view CLINICAL HISTORY: Status post cardiac surgery COMPARISON: 06/09/2020 Impression: Endotracheal tube terminates in the distal trachea. Sternotomy wires are present and aligned. A right [place]-Scott catheter is present with its tip in the main pulmonary artery. The right-sided internal jugular venous catheter is present with its tip located at the superior cavoatrial junction. Gastric terminates in the gastric stomach with sidehole at the gastroesophageal junction. Left-sided thoracostomy tube place. There are numerous. Several clips. Clips noted at the diaphragmatic hiatus. Pericardial drain noted. There are bilateral reticular airspace opacities likely representing pulmonary edema. There is a trace left pleural effusion with associated left retrocardiac atelectasis. No pneumothorax. Cardiomediastinal silhouette is mildly enlarged likely secondary to recent surgery. Atherosclerotic calcifications of the aorta noted. Electronically signed by: Red Pradhan M.D. Impression and Plan: Active problems/Diagnoses: ASSESSMENT: # Post Op - CORONARY ARTERY BYPASS GRAFT x 3 # CAD # HTN # CRF # DM # Acute blood loss anemia (perioperative) - Expected Plans: # Hemodynamic monitoring and support as needed -Cardene and hydralazine until home BB resumed. # Respiratory monitoring and support - Extubated & stable # Perioperative Abx prophylaxis with Vanc and Ancef # PUD & VTE prophylaxis # Glycemic monitoring and control - [place] Protocol # Follow I&O closely # Assess volume status, renal function, serum chemistries, and blood counts frequently ICU standards of care: Restraints: none DVT prophylaxis: SCDs, Heparin SQ if Plt's > 70 PUD prophylaxis: H2 German until extubated. Nutrition: ADAT to HH & CC Bowel regimen: Docusate/Senna Physical therapy/Activity: OOB/PT Drains: Chest tubes to suction Irizarry: According to Houdini Protocol Goals of care: Full code Plan discussed with the CVR Critical Care Attending Physician ROMI Snyder * Hernan Cordero MD - 06/11/2020 10:15 AM CDT Pain free on heparin, met with family, for coronary artery bypass grafting tomorrow, check BMP today. * Cy Krause MD - 06/10/2020 11:06 AM CST Images from the original note were not included. [facility] - Progress Note- Britton Nielsen Sr. is a 65 y.o. male - Date of : 1955 Primary care doctor: Scott Oneill MD Reason for initial consultation: 1. Angina pectoris syndrome (CMS/HCC) 2. Hypertension, unspecified type Current Medication List: Scheduled Meds:atorvastatin, 20 mg, oral, Daily [START ON 06/11/2020] bisacodyL, 10 mg, rectal, Once cyanocobalamin, 1,000 mcg, subcutaneous, Q30 Days epoetin live-epbx, 20,000 Units, subcutaneous, Once per day on Fri gabapentin, 300 mg, oral, Nightly labetaloL, 200 mg, oral, Q8H ANEUL sodium chloride 0.9%, 0.5-20 mL, intra-catheter, Q8H ANUEL Continuous Infusions:heparin, 0-33 Units/kg/hr, Last Rate: 7.5 Units/kg/hr (06/10/20 0244) nitroglycerin, 0-50 mcg/min, Last Rate: 50 mcg/min (06/09/202202) [START ON 06/12/2020] sodium chloride 0.9%, 30 mL/hr sodium chloride 0.9%, 10 mL/hr PRN Meds:.??? acetaminophen ??? aluminum-magnesium hydroxide-simethicone ??? heparin OR heparin ??? nitroglycerin ??? ondansetron ODT OR ondansetron ??? sodium chloride 0.9% ??? sodium chloride 0.9% ??? sodium chloride 0.9% Previous weight Wt Readings from Last 3 Encounters: 06/08/20 95.8 kg (211 lb 3.2 oz) 05/22/20 96.1 kg (211 lb 12.8 oz) 05/04/20 95.6 kg (210 lb 12.8 oz) History: Mr. Nielsen is a 65 y/o patient of Dr. Flo Barnard with a hs of microscopic polyangiitis, s/p immunosuppressive rx. He is admitted now for evaluation prior to planned CABG on 06/12/20. Renal consultation was requested for management of CKD. Had episode chest pressure last PM, resolved with IV NTG and morphine. No further sxs since that time. Vital Signs: Vitals: 06/10/20 0841 BP: (!) 103/43 Pulse: 65 Resp: 18 Temp: 36.8 ??C (98.2 ??F) SpO2: 95% Intake/Output Summary (Last 24 hours) at 06/10/2020 1106 Last data filed at 06/10/2020 0840 Gross per 24 hour Intake 1227.64 ml Output 425 ml Net 802.64 ml Physical Exam: General: Well nourished, in no distress, alert and conversant Head: No evidence of trauma, no facial edema Eyes: Conjugate gaze, equal pupils, no conjunctivitis or icterus Nose: No visible drainage or epistaxis Neck: symmetric, no visible JVD or adenopathy Chest: No SOB, normal resp effort, no wheezing Heart: Regular rate and rhythm Abd: Does not appear distended, no reported tenderness Extremities: No LE edema noted Skin: No rash, purpura, or wounds on exposed skin Mental status: Alert, appropriate affect, intact congnition Neuro: No focal neurologic deficits identified. Gait not assessed Recent Labs Lab Units 06/10/20 0211 06/09/20 0620 WBC K/cumm 5.1 6.3 HEMOGLOBIN g/dL 8.2* 8.9* HEMATOCRIT % 25.6* 27.7* PLATELETS K/cumm 149* 150 Review of urine sediment notable for negative proteinuria and WBC. There are 1-3 RBC/hpf and rare acanthocytes. no casts at all. Recent Labs Lab Units 06/08/20 1832 SODIUM mmol/L 143 POTASSIUM PLASMA mmol/L 3.9 CHLORIDE mmol/L 108 CO2 mmol/L 25 BUN SERUM mg/dL 23 CREATININE mg/dL 1.95* CALCIUM mg/dL 8.3* ALBUMIN g/dL 3.5 Impression and Recommendations: CKD3 Hx MPA - s/p immunosuppressive rx - no clinical evidence of recurrent active disease CAD - plan for CABG 06/12/20 Anemia - chronic disease and B12 deficiency Will start ELKIN as Retacrit - 20,000u subcut and rx subcut B12 1mg today and monthly Cy Krause MD [phone] - office - fax TECHNICIAN * Hernan Cordero MD - 06/10/2020 10:56 AM CST Alert, oriented. Had chest pain last night, feels great now on nitroglycerin and heparin. Again discussed with the patient with his the plan for surgery on Friday. Vital signs are stable, all questions were answered. TECHNICIAN * Yevgeniy Gonzalez PA - 06/09/2020 11:45 PM CST CVR Critical Care Progress Note Shifts: LIBBY Shift Options: [facility] CVR PM Britton Nielsen Sr. 1955 Hospital DAY#2 Subjective Patient is a 65 y.o. male admitted to the hospital on 06/08/2020 5:46 PM Chief Complaint / Reason for admission [place] PROCEDURES: Planned Date of Surgery 06/12/2020 INTERVAL EVENTS: 06/09 Admitted to [facility] while waiting clearance of Rx coagulopathy and planned for CABG on 06/12. Currently on heparin drip for ACS and covering Hx of DVT's. However, after eating dinner, he reported escalating CP similar to his presenting complaint to the RN. The CVR PA, covering for Dr Cordero, was contacted an a review of his telemetry tracings, showed inferior ST depressions contemporaneous with his CP. His blood pressure was also noted to be very high. He complained of a burning chest pain with radiation to his left arm. TNG-SL was given twice with quick and near complete resolution of the pain and some reduction of the BP. About 10 minutes later, the pain and hypertension recurred and he was started on IV nitrates that were titrated up for pain relief, BP control, and normalization of the inferior ST's. Dr Cordero was notified of the events ant he requested an increased frequency of the PO BB dose and then transfer to the CVR if needed. Continuous monitoring of the telemetry ST's later showed some recurrence of the ST changes. The patient was checked and indeed was starting to have an escalation of his discomfort but it was aborted with an increase of the nitrates and a dose of morphine. There were no subsequent events through the night. HPI: 65 y.o. male presenting with multiple vessel coronary artery disease. He reported exertional chest pain with radiation down the left arm, despite negative stress test he underwent cardiac catheterization and this showed a 50- 60% distal left main coronary artery stenosis, a 90% lesion of the proximal circumflex at the bifurcation of an intermediate and circumflex proper, and a 90% right coronary artery lesion. He was transferred her for bypass graft surgery. 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 He also has a markedly positive family history. Past Medical History: Diagnosis Date ??? Arthritis ??? DVT (deep venous thrombosis) (CMS/HCC) ??? History of transfusion ??? Hyperlipidemia ??? Hypertension ??? Overweight ??? Renal failure ??? Skin cancer ??? Sleep apnea Past Surgical History: Procedure Laterality Date ??? NO PAST SURGERIES HOME MEDICATIONS : apixaban (ELIQUIS) 5 mg tablet atorvastatin (LIPITOR) 20 mg tablet furosemide (LASIX) 40 mg tablet gabapentin (NEURONTIN) 300 mg capsule labetaloL (NORMODYNE,TRANDATE) 200 mg tablet potassium chloride ER 20 mEq CR tablet traMADoL (ULTRAM) 50 mg tablet Vitamin D2 1,250 mcg (50,000 unit) capsule No Known Allergies Objective Medications: Scheduled Meds:atorvastatin, 20 mg, oral, Daily [START ON 06/11/2020] bisacodyL, 10 mg, rectal, Once gabapentin, 300 mg, oral, Nightly labetaloL, 200 mg, oral, Q8H ANUEL sodium chloride 0.9%, 0.5-20 mL, intra-catheter, Q8H ANUEL Continuous Infusions:heparin, 0-33 Units/kg/hr, Last Rate: 7.5 Units/kg/hr (06/10/20 0244) nitroglycerin, 0-50 mcg/min, Last Rate: 50 mcg/min (06/09/202202) [START ON 06/12/2020] sodium chloride 0.9%, 30 mL/hr sodium chloride 0.9%, 10 mL/hr PRN Meds:??? acetaminophen, 650 mg ??? aluminum-magnesium hydroxide-simethicone, 20 mL, 20 mL at 06/09/20 1934 ??? heparin, 2,000 Units OR heparin, 3,000 Units ??? nitroglycerin, 0.4 mg, 0.4 mg at 06/09/20 194 ??? ondansetron ODT, 4 mg OR ondansetron, 4 mg ??? sodium chloride 0.9%, 0.5-20 mL ??? sodium chloride 0.9%, 0.5-20 mL ??? sodium chloride 0.9%, 10 mL/hr Vitals: Temp: [36.3 ??C (97.3 ??F)-36.9 ??C (98.5 ??F)] 36.8 ??C (98.2 ??F) Pulse: [65-84] 65 BP: (103-190)/(43-82) 103/43 Resp: [18-24] 18 SpO2: [95 %-99 %] 95 % Fluid balnace: I/O this shift: In: 300 [P.O.:300] Out: 200 [Urine:200] Intake/Output Summary (Last 24 hours) at 06/10/2020 1012 Last data filed at 06/10/2020 0840 Gross per 24 hour Intake 1227.64 ml Output 425 ml Net 802.64 ml Physical exam: General Appearance: NAD Neurologic: A&O Respiratory: Unlabored, Clear Cardiovascular: Reg rate and rhythm Gastrointestinal/ Abdomen: Soft, nontender, nondistended Extremities: No edema. Skin: warm and dry Laboratory data: Recent Labs Lab Units 06/10/2021006/09/20 0620 06/08/20 1832 WBC K/cumm 5.1 6.3 5.7 5.6 HEMOGLOBIN g/dL 8.2* 8.9* 9.1* 9.1* HEMATOCRIT % 25.6* 27.7* 28.7* 28.7* PLATELETS K/cumm 149* 150 166 154 Recent Labs Lab Units 06/08/20 1832 SODIUM mmol/L 143 POTASSIUM PLASMA mmol/L 3.9 CHLORIDE mmol/L 108 CO2 mmol/L 25 BUN SERUM mg/dL 23 CREATININE mg/dL 1.95* MAGNESIUM mg/dL 1.6 Recent Labs Lab Units 06/08/20 1832 CALCIUM mg/dL 8.3* Recent Labs Lab Units 06/08/20 1832 GLUCOSE mg/dL 101 Recent Labs Lab Units 06/10/2021006/09/205 06/09/20 1204 06/09/20 0259 06/08/20 1832 PROTIME (PT) sec -- -- -- -- 12.8 INR -- -- -- -- 1.2 APTT sec 93* 74* 82* 116* 59* Recent Labs Lab Units 06/10/2021006/09/20 2359 06/09/20 2211 06/09/202006 TROPTHS ng/L 60* 56* 57* 51* TROPTHSDEL ng/L 9 5 6 -- TROPTHSINTRP Equivocal Equivocal Equivocal -- Resulted in the Past 12 Months 06/10/20210 HGBA1C 5.3 No results for input(s): [id number] in the last 8736 hours. Radiology/Diagnostic/Micro Review ECG 12 lead Vent Rate: 79 bpm RR Interval: 755 msec ID Interval: 152 msec QRS Duration: 82 msec QT Interval: 408 msec QTC Interval: 443 msec P-R-T Clare: 53 - 40 - 62 [address] DEPRESSION ABNORMAL ECG Electronically Signed By: Tavo Mares MD [facility] Card Impression and Plan: Active problems/Diagnoses: ASSESSMENT: # CAD # HTN # DVT's with chronic anticoagulation # CRF # ACS with recurring signs and symptoms of ischemia Plans: # Pre-Op CABG planned for 06/12 # Anticoagulation with IV heparin # Control of coronary ischemia with IV nitrates # Continuous telemetry monitoring of ST changes - including direct visual & computerized alarms # Analgesics as needed # Move to CVR if pain & BP not easily controlled # Serial enzymes # Increased BB frequency # Follow I&O closely # Assess volume status, renal function, serum chemistries, and blood counts frequently Goals of care: Full code Plan discussed with the CVR Critical Care Attending Physician & ROMI Sommer TECHNICIAN documented in this encounter H&P Notes * Stacey Haskins NP - 06/12/2020 1:43 PM CDT Images from the original note were not included. [facility] CVR History & Physical - Patient: Britton Herndonicott Sr. : 1955 Age: 65 y.o. male Admiting Physician: Hernan Cordero MD Dining Services Manager: Yaneth Bull MD Shift: [facility] CVR AM HPI: 65 y.o. 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 He reported exertional chest pain with radiation down the left arm, despite negative stress test. He underwent cardiac catheterization 06/08/20 that showed a 50-60% distal left main coronary arterystenosis, a 90% lesion of the proximal circumflex at the bifurcation of an intermediate and circumflex proper, and a 90% right coronary artery lesion. His Eliquis was held and he was started on a heparin drip. Today (06/12/20) the patient underwent CABG x [address] Cordero. Anesthesia reported an easy airway. Post-procedure SUZAN revealed normal biventricular function without inotropic support. OR totals include: 2 PRBC. OR course notable for hyperkalemia with K 6.1 treated with 10 units insulin and D50 at the end of the case. Patient arrived to CVR intubated, sedated on propofol, and hemodynamically supported on norepi 0.05mcg/kg/min. ROS: Unable to obtain, patient intubated and sedated Admitted to the hospital on 06/08/2020 5:46 PM for CAD Procedures: 06/12: CORONARY ARTERY BYPASS GRAFT x 3 using left internal mammary artery, endoharvested left radial artery, and bilateral endoharvested greater saphenous vein graft. Left internal mammary artery to the distal LAD, saphenous vein graft to the intermediate, saphenousvein graft to the right coronary posterior descending branch Past Medical History: Diagnosis Date ??? Arthritis ??? DVT (deep venous thrombosis) (CMS/HCC) ??? History of transfusion ??? Hyperlipidemia ??? Hypertension ??? Overweight ??? Renal failure ??? Skin cancer ??? Sleep apnea Past Surgical History: Procedure Laterality Date ??? NO PAST SURGERIES HOME MEDICATIONS : apixaban (ELIQUIS) 5 mg tablet atorvastatin (LIPITOR) 20 mg tablet furosemide (LASIX) 40 mg tablet gabapentin (NEURONTIN) 300 mg capsule labetaloL (NORMODYNE,TRANDATE) 200 mg tablet potassium chloride ER 20 mEq CR tablet traMADoL (ULTRAM) 50 mg tablet Vitamin D2 1,250 mcg (50,000 unit) capsule Social History Tobacco Use ??? Smoking status: Former Smoker ??? Smokeless tobacco: Never Used Substance Use Topics ??? Alcohol use: Yes Comment: 6 beers a year No Known Allergies Family History Problem Relation Age of Onset ??? Heart disease Mother ??? Heart disease Father ??? Other (Septic ) Sister ??? Cancer Brother Temp: [36.7 ??C (98 ??F)-36.9 ??C (98.4 ??F)] 36.8 ??C (98.3 ??F) Pulse: [60-76] 69 BP: (126-166)/(46-77) 132/73 Resp: [11-22] 16 SpO2: [95 %-100 %] 97 % Arterial Line BP: (126-133)/(50-51) 126/51 FiO2 (%): [21 %-50 %] 40 % PAP: (32-33)/(7-12) 33/12 CVP: [3 mmHg-6 mmHg] 6 mmHg CO: [5.8 L/min] 5.8 L/min CI: [2.8 L/min/m2] 2.8 L/min/m2 Scheduled Meds: ??? acetaminophen, 1,000 mg, Q6H ANUEL OR acetaminophen, 1,000 mg, Q6H ANUEL OR acetaminophen, 650 mg, Q6H ANUEL ??? albumin, 12.5 g, Once ??? aspirin, 325 mg, Daily OR aspirin, 325 mg, Daily OR aspirin, 300 mg, Daily ??? ceFAZolin, 2,000 mg, Q12H ??? docusate sodium, 100 mg, Daily OR docusate, 100 mg, Daily ??? famotidine, 20 mg, Q12H ANUEL ??? [START ON 06/13/2020] heparin, 5,000 Units, Q8H ANUEL ??? [START ON 06/13/2020] senna, 1 tablet, BID OR [START ON 06/13/2020] senna, 8.8 mg, BID ??? sodium chloride 0.9%, 0.5-20 mL, Q8H ANUEL ??? vancomycin, 1,500 mg, Q12H Physical Exam: Neuro: intubated/sedated. Pinpoint pupils. Unable to follow simple commands. Cardiac: epicardial wires capped, RRR, S1/S2, no m/r/g. periphery warm, pulses palpable distally Resp: orally intubated & mechanically ventilated, breath sounds clear to auscultation bilaterally, no wheezes. Normal respiratory rate and effort. GI: NPO, OGT to LIWS, abdomen round, soft, absent bowel sounds : irizarry catheter in place w/ clear, yellow urine Skin: pink, warm, dry, midline sternotomy with OR dressing C/D/I. (BLE SVG and L radial harvest site with ANGELICA wrap dressing intact.) Drains: PCTx1 & MCT x1 to -20 suction with small amount of sanguinous drainage, no air leak. Lines: R IJ cordis/PAC, R radial kirill with dressings clean, dry, intact. Infusions: insulin regular, 0-30 Units/hr, Titrated ??? niCARdipine, 0-2.5 mcg/kg/min, Titrated ??? norepinephrine, 0-2 mcg/kg/min, Titrated ??? sodium chloride 0.9%, 10 mL/hr, Continuous ??? sodium chloride 0.9%, 1,000 mL, Continuous Adult Vent Mode: Volume control/Synchronized intermittent mandatory ventilation FiO2 (%): [21 %-50 %] 40 % S RR: [16] 16 S VT: [600 mL] 600 mL PEEP/CPAP/EPAP (cm H2O): [5 cm H20] 5 cm H20 Pressure Support (cm H2O): [8 cm H20] 8 cm H20 PIP: [0 cm H2O-26 cm H2O] 25 cm H2O Minute Ventilation (L/min): [0 L/min-8.5 L/min] 8.1 L/min MAP (cmH2O): [0-10] 10 O2 Therapy: Supplemental oxygen O2 Del Method: Endotracheal tube FiO2 (%): 40 % PRN Meds: [START ON 06/13/2020] bisacodyL, 10 mg ??? dextrose, 125 mL ??? insulin lispro, 1-14 Units ??? insulin regular, 2-14 Units ??? ondansetron, 4 mg ??? polyethylene glycol, 17 g ??? potassium chloride, 20 mEq ??? sodium chloride 0.9%, 0.5-20 mL ??? sodium chloride 0.9%, 10-30 mL Date 06/11/20 07 - 06/12/20 0659 06/12/20 07 - 06/13/20 0659 Shift 1640-7456 3062-1265 24 Hour Total 1494-7201 7549-3116 24 Hour Total INTAKE P.O. 1200 1200 I.V.(mL/kg) 128(1.4) 128(1.3) 1550(16.1) 1550(16.1) Blood 500 500 IV Piggyback 1999 1999 Shift Total(mL/kg) 1328(14.7) 1328(13.8) 4050(42) 4050(42) OUTPUT Urine(mL/kg/hr) 560(0.5) 725(0.6) 1285(0.6) 350 350 Other 3800 3800 Chest Tube 25 25 Shift Total(mL/kg) 560(6.2) 725(7.5) 1285(13.3) 4175(43.3) 4175(43.3) NET 768 -995 43 -125 -125 Weight (kg) 90.2 96.4 96.4 96.4 96.4 96.4 LDA Introducer 06/12/20 Right Internal jugular (Active) Number of days: 0 CVC Triple Lumen 06/12/20 Right Internal jugular (Active) Number of days: 0 PA Catheter 7.5 Fr. Right Other (Comment) (Active) Number of days: 0 Arterial Line 06/12/20 Right Radial (Active) Number of days: 0 Urethral Catheter Temperature probe 16 Fr. (Active) Number of days: 0 Chest Tube Left Pleural (Active) Number of days: 0 Chest Tube B Anterior Mediastinal (Active) Number of days: 0 Recent Labs Lab Units 06/12/20 0321 06/11/20 1141 06/11/20 1141 06/08/20 1832 06/08/20 1832 SODIUM mmol/L 139 -- 139 -- 143 POTASSIUM PLASMA mmol/L 4.0 -- 4.9 -- 3.9 CHLORIDE mmol/L 105 -- 105 -- 108 CO2 mmol/L 23 < > 23 < > 25 BUN SERUM mg/dL 26* -- 27* -- 23 CREATININE mg/dL 2.20* -- 2.17* -- 1.95* MAGNESIUM mg/dL -- -- -- -- 1.6 < > = values in this interval not displayed. Recent Labs Lab Units 06/08/20 1832 ALK PHOS Units/L 87 ALT Units/L 14 AST Units/L 14 BILIRUBIN TOTAL mg/dL 0.6 Recent Labs Lab Units 06/12/20 1312 06/12/20 1211 06/12/20 1210 06/12/20 0908 06/12/20 0321 WBC K/cumm 9.0 8.4 -- -- 5.1 HEMOGLOBIN, POC g/dL -- -- 9.2* < > -- HEMOGLOBIN g/dL 9.7* 9.0* -- -- 8.2* HEMATOCRIT % 30.1* 27.4* -- -- 25.5* HEMATOCRIT POC % -- -- 28.0* < > -- PLATELETS K/cumm 98* 91* -- -- 148* < > = values in this interval not displayed. Recent Labs Lab Units 06/12/20 1211 06/12/20 0321 06/11/20 1141 06/09/20 0259 06/08/20 1832 APTT sec 73* 75* 72* < > 59* INR 1.5* -- -- -- 1.2 < > = values in this interval not displayed. Recent Labs Lab Units 06/12/20 1312 06/12/20 1210 06/12/20 1132 PH ART 7.30* 7.41 7.34* PCO2 ART mmHg 39 -- -- PO2 ART mmHg 116* -- -- PO2 ARTERIAL POC mmHg -- 231* 295* HCO3 ART POC mmol/L -- 24 22 HCO3 ART (CALC) mmol/L 19* -- -- POCT BASE EXCESS, ARTERIAL mmol/L -- -0.8 -3.5* BASE EXC ART mmol/L -7 -- -- O2 SAT ART (CALC) % 98 -- -- CXR (my interpretation): ETT and PAC in good position, no PTX, bibasilar atelectasis present. IMPRESSION/PLAN: Acute Postoperative Pain Expected postop pain following cardiac surgery. Currently sedated on propofol. - PRN Fentanyl until extubated. - Scheduled Tylenol and PRN Oxycodone once able to take PO. Hypotension Post bypass SUZAN w/ normal biventricular function on no inotropic support Currently supported on norepi at 0.05. Hemodynamics CVP 3, CI 2.9. Likely hypovolemic. - 250ml albumin bolus - Wean pressors for MAP > 65 - SBP goal 100-120 Acute Respiratory Insufficiency Post-procedural short-term ventilator support with anticipated extubation. Pt sedated with propofolon arrival from OR. - Plan to wean sedation for PSV trial with goal extubation if no signs of active bleeding and hemodynamically stable - Pulmonary hygiene with IS, acapella, and C&DB after extubation - Wean supplemental O2 for SpO2 > 92% Acute kidney injury on chronic kidney disease stage 3, hyperkalemia Admission Cr 1.97, Cr up to 2.2 preop. Likely some JACQUELYN due to dye from recent LHC. Intraop K 6.1 post bypass treated with 10 units insulin and dextrose. - f/u K and blood glucose level -> 4.6, blood glucose well controlled - Avoid nephrotoxins and renally dose medications - Avoid hypotension Hypophosphatemia Phos 1.7. - 15mmol sodium phos IV x1 - Recheck phos with am labs Acute Blood Loss Anemia Expected following cardiac surgery. Hgb 9.7. Received 2 PRBC intraop. - No current indication for transfusion, consider if patient becomes hemodynamically unstable with increased pressor requirements or Hgb < 8 and symptomatic - CBC daily Deep vein thrombosis (POA) History of DVT in BLE treated with Eliquis. - SCDs and SQH POD 1 for DVT PPX - Hold Eliquis, will discuss timing of resuming with CT surgery Leukocytosis Likely inflammatory following procedure. - No current indication for culture, consider if temp > 38.5 - Continue periop antibiotics to completion CAD, s/p CABG: Post-op care to include: - ASA now if no significant bleeding - Statin POD #1 (CABG, HLD) - Eventual BB once weaned off inotropes and hemodynamically stable (CABG, A-Fib ppx) - Hold ANGELICA/ARB in the post-op setting (CABG) - Chest tubes to -20 suction - Epicardial wires capped ICU Standards: HOB >30 deg: Yes DVT prophylaxis: SCDs, start SQH tomorrow morning if plts >100 Stress ulcer prophylaxis: Acid suppression until extubated Nutrition: ADAT after extubation Glycemic control: Follow CVR standard Bowel regimen: Colace and Senna for bowel regimen. PRN miralax and dulcolax ID. Therapies: PT/OT for decreased mobility when able to participate Goals of care: Full code Updates: - Extubated without incident - K back up to 5.1. Will repeat at 1900 - Nicardipine started for hypertension Assessment and plan has been reviewed with CT Surgery & ICU attending on 06/12/20. Stacey Haskins NP Cosigned by Yaneth Bull MD at 06/13/2020 4:39 PM CDT * Hernan Cordero MD - 06/09/2020 8:15 AM CST Cardiac-Thoracic Surgery Patient Name: Britton Nielsen : 1955 Referred by: No ref. provider found Date of Visit: 06/09/20 Chief Complaint HPI: Britton Nielsen is a 65 y.o. male presenting for surgical evaluation of multiple vessel coronary artery disease. He reported exertional chest pain with radiation down the left arm, despite negative stress test he underwent cardiac catheterization yesterday by Dr. mason servin and this showed a 50-60% distal left main coronary artery stenosis, a 90% lesion of the proximal circumflex at the bifurcation of an intermediate and circumflex proper, and a 90% right coronary artery lesion. He was transferred for bypass graft surgery. 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 He also has a markedly positive family history. Allergies as of 06/08/2020 ??? (No Known Allergies) Prior to Admission medications Medication Sig Start Date End Date Taking? Authorizing Provider apixaban (ELIQUIS) 5 mg tablet Take 5 mg by mouth 2 (two) times a day Yes Rivera Veras MD atorvastatin (LIPITOR) 20 mg tablet Take 20 mg by mouth daily 02/11/20 Rivera Veras MD furosemide (LASIX) 40 mg tablet Take 40 mg by mouth daily 03/27/20 Rivera Veras MD gabapentin (NEURONTIN) 300 mg capsule Take 300 mg by mouth nightly 01/26/20 Rivera Veras MD labetaloL (NORMODYNE,TRANDATE) 200 mg tablet Take 200 mg by mouth 2 (two) times a day 03/26/20 Rivera Veras MD potassium chloride ER 20 mEq CR tablet Take 20 mEq by mouth 2 (two) times a day 04/06/20 Rivera Veras MD traMADoL (ULTRAM) 50 mg tablet Take 50 mg by mouth 2 (two) times a day as needed 06/17/18 Rivera Veras MD Vitamin D2 1,250 mcg (50,000 unit) capsule Take 50,000 Units by mouth once a week On Friday02/11/20 Rivera Veras MD Current Facility-Administered Medications: ??? acetaminophen (TYLENOL) tablet 650 mg, 650 mg, oral, Q4H PRN, Jono Kovacs PA ??? atorvastatin (LIPITOR) tablet 20 mg, 20 mg, oral, Daily, Jono Kovacs PA, 20 mg at 06/08/202037 ??? gabapentin (NEURONTIN) capsule 300 mg, 300 mg, oral, Nightly, Karly Jones PA, 300 mg at 06/08/202037 ??? heparin 5,000 unit/mL injection 2,000 Units, 2,000 Units, intravenous, Q6H PRN OR heparin 5,000 unit/mL injection 3,000 Units, 3,000 Units, intravenous, Q6H PRN, Karly Jones PA ??? heparin in 0.45% sodium chloride 25,000 units/250 mL (100 units/mL) infusion (premix), 0-33 Units/kg/hr, intravenous, Titrated, Karly Jones PA, Last Rate: 7.1 mL/hr at 06/09/20 0451, 7.5 Units/kg/hr at 06/09/20 0451 ??? labetaloL (NORMODYNE,TRANDATE) tablet 200 mg, 200 mg, oral, BID, Jono Kovacs PA, 200 mg at 06/08/202117 ??? ondansetron ODT (ZOFRAN-ODT) disintegrating tablet 4 mg, 4 mg, oral, Q6H PRN OR ondansetron(ZOFRAN) injection 4 mg, 4 mg, intravenous, Q6H PRN, Jono Kovacs PA ??? sodium chloride 0.9% flush 0.5-20 mL, 0.5-20 mL, intra-catheter, Q8H ANUEL, Jono Kovacs PA, 20 mL at 06/08/202118 ??? sodium chloride 0.9% flush 0.5-20 mL, 0.5-20 mL, intra-catheter, PRN, Jono Kovacs PA Past Medical History: Diagnosis Date ??? Arthritis ??? DVT (deep venous thrombosis) (CMS/HCC) ??? History of transfusion ??? Hyperlipidemia ??? Hypertension ??? Overweight ??? Renal failure ??? Skin cancer ??? Sleep apnea history of peptic ulcer disease status post embolization of his gastroduodenal artery in 2017 U. Operations: Lip surgery for squamous cell ca. Family History Problem Relation Age of Onset ??? Heart disease Mother ??? Heart disease Father ??? Other (Septic ) Sister ??? 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 Review of Systems Notable only for his chest pain complaints, though he does site occasional episodes where his handsturn blue. The remainder of the review of systems were reviewed including, pulmonary, gastrointestinal, renal,urologic, dermatologic, hematologic, ophthalmological, and neurologic are negative.. Objective: Vitals: 06/08/20 2300 06/09/20 0059 06/09/20 0300 06/09/20 0531 BP: 125/59 136/59 BP Location: Right arm Left arm Patient Position: Lying Sitting Pulse: 80 70 72 Resp: 16 16 Temp: 37 ??C (98.6 ??F) 37.2 ??C (99 ??F) TempSrc: Oral Oral SpO2: 97% 99% Weight: Height: Physical Exam: General Appearance: Well developed, well nourished, in no acute distress Neck: Examination of jugular veins WNL Respiratory: Lungs clear to auscultation bilaterally Cardiovascular: Regular rate and rhythm with no murmurs Gastrointestinal/ Abdomen: Soft, nontender, nondistended Extremities: No clubbing, cyanosis, or edema, good Jeffrey's test left wrist. 2+ left dorsalis pedis,2+ right posterior tibial Skin: warm and dry Neurologic/ Psychiatric: Alert and oriented x 3 with a grossly normal motor exam Data Review: Recent Labs Lab Units 06/09/20 0620 06/08/20183106/08/201831 BUN SERUM mg/dL -- -- 23 CREATININE mg/dL -- -- 1.95* WBC K/cumm 6.3 < > 5.7 5.6 HEMOGLOBIN g/dL 8.9* < > 9.1* 9.1* HEMATOCRIT % 27.7* < > 28.7* 28.7* PLATELETS K/cumm 150 < > 166 154 < > = values in this interval not displayed. Recent Labs Lab Units 06/09/20 0259 06/08/20183106/08/201831 APTT sec 116* < > 59* INR -- -- 1.2 < > = values in this interval not displayed. Assessment and Plan: 65-year-old patient with severe diffuse multiple vessel coronary artery disease including a 50-60% distal left main, a 90% lesion affecting the intermediate/circumflex bifurcation, possibly an ostialLAD, and a 90% lesion of the right coronary artery. His pertinent comorbidities include stage 3 kidney disease with glomerulonephritis, his creatinine is 1.95 here, Dr. Krause will see him from the renal standpoint preoperatively. He is on Eliquis for the DVT so it has been held and he is on a heparin drip. We will check saphenous vein mapping, and plan his operation for Friday. I explained the risks of operation including risk of bleeding, infection, stroke, blood transfusion, and . All questions were answered. TECHNICIAN TECHNICIAN documented in this encounter Procedure Notes * Stacey Haskins NP - 06/13/2020 7:21 AM CDTAssociated Order(s): Critical Care Post-Procedure Diagnose(s): Angina pectoris syndrome (CMS/HCC) (HCC) Critical Care Performed by: Stacey Haskins NP Authorized by: Stacey Haskins NP CRITICAL CARE: Team: OTHER Shift: AM Level of Billing: Subsequent Hospital Visit Level 3 My time spent with this patient was 40 minutes: Critical Provider Statement: I have seen and examined the patient on this day of service. I have reviewed and confirmed the history, physical exam, laboratory, and radiographic data as documented in the ICU note. I have reviewed and discussed my treatment plan with the patient's team and other medical/food consultant staff. This time was in addition to and separate from care provided by other practitioners on this day of service. Stacey Haskins NP * Yevgeniy Gonzalez PA - 06/12/2020 11:20 PM CDTAssociated Order(s): Critical Care Post-Procedure Diagnose(s): Angina pectoris syndrome (CMS/HCC) (HCC) Critical Care Performed by: Yevgeniy Gonzalez PA Authorized by: Yevgeniy Gonzalez PA CRITICAL CARE: Team: OTHER Shift: PM Level of Billing: Critical Care My time spent with this patient was 70 minutes: Critical Provider Statement: I have seen and examined the patient on this day of service. I have reviewed and confirmed the history, physical exam, laboratory and radiologic data as documented in thesigned ICU note. I have reviewed and discussed my treatment plan with the ICU team and other medical/food consultant staff, making frequent assessments and decisions regarding this patient's complex medical care. Critical Care time was exclusive of time spent performing separately billed procedures, treating other patients, and teaching. This time was in addition to and separate from critical care provided by other practitioners in my group on this day of service. Critical Care was necessary to treat or prevent imminent or life-threatening deterioration of the following conditions: Acute pain/acute postoperative pain Hypertensive crisis and Jya-[id number]-Mpfldccgm mycardial infarction (Non-STEMI) Acute respiratory failure following procedure/surgery Acute kidney injury and Hyperkalemia Acute blood loss anemia This time was spent by me doing the following: Serial bedside patient exams and Resuscitation with fluids Acute pain control Active and frequent reassessment of respiratory status and oxygen requirements and Invasive ventilator management, reassessment, and titration Active diuresis and Active repletion of electrolytes I spent time reviewing and interpreting data from bedside monitors, laboratory results, and imaging, I spent time discussing the management of this critically ill patient with consultants and the medical staff and I spent time documenting in the medical record Cosigned by Yaneth Bull MD at 06/13/2020 4:40 PM CDT * Stacey Haskins NP - 06/12/2020 5:47 PM CDTAssociated Order(s): Critical Care Post-Procedure Diagnose(s): Angina pectoris syndrome (CMS/HCC) (HCC) Critical Care Performed by: Stacey Haskins NP Authorized by: Stacey Haskins NP CRITICAL CARE: Team: OTHER Shift: AM Level of Billing: Critical Care My time spent with this patient was 100 minutes: Critical Provider Statement: I have seen and examined the patient on this day of service. I have reviewed and confirmed the history, physical exam, laboratory and radiologic data as documented in thesigned ICU note. I have reviewed and discussed my treatment plan with the ICU team and other medical/food consultant staff, making frequent assessments and decisions regarding this patient's complex medical care. Critical Care time was exclusive of time spent performing separately billed procedures, treating other patients, and teaching. This time was in addition to and separate from critical care provided by other practitioners in my group on this day of service. Critical Care was necessary to treat or prevent imminent or life-threatening deterioration of the following conditions: Acute pain/acute postoperative pain and Agitation requiring sedation Hypotension Hypertension Acute respiratory insufficiency Acute kidney injury, Acute electrolyte derangement, Hyperkalemia and Hypo- or Hyperglycemia Acute blood loss anemia Leukocytosis This time was spent by me doing the following: Resuscitation with fluids, Serial bedside patient exams and Serial laboratory checks Active titration of continuous sedation and Acute pain control Initiation/active titration of vasoactive medications and Interpretation of cardiac output measurements Active and frequent reassessment of respiratory status and oxygen requirements and Invasive ventilator management, reassessment, and titration Active and frequent monitoring of intake/output and volumen status Active repletion of electrolytes Initiation/management of anti-platelet agents I spent time reviewing and interpreting data from bedside monitors, laboratory results, and imaging, I spent time discussing the management of this critically ill patient with consultants and the medical staff and I spent time documenting in the medical record Stacey Haskins NP * Yevgeniy Gonzalez PA - 06/09/2020 11:45 PM CSTAssociated Order(s): Critical Care Post-Procedure Diagnose(s): Hypertension, unspecified type; Angina pectoris syndrome (CMS/HCC) (HCC) Critical Care Performed by: Yevgeniy Gonzalez PA Authorized by: Yevgeniy Gonzalez PA CRITICAL CARE: Team: OTHER Shift: PM Level of Billing: Critical Care My time spent with this patient was 90 minutes: Critical Provider Statement: I have seen and examined the patient on this day of service. I have reviewed and confirmed the history, physical exam, laboratory and radiologic data as documented in thesigned ICU note. I have reviewed and discussed my treatment plan with the ICU team and other medical/food consultant staff, making frequent assessments and decisions regarding this patient's complex medical care. Critical Care time was exclusive of time spent performing separately billed procedures, treating other patients, and teaching. This time was in addition to and separate from critical care provided by other practitioners in my group on this day of service. Critical Care was necessary to treat or prevent imminent or life-threatening deterioration of the following conditions: Acute pain/acute postoperative pain Hypertensive crisis, Gav-UJ-Mrvmxyuab mycardial infarction (Non-STEMI) and Demand ischemia/elevatedtroponins Severe coagulopathy This time was spent by me doing the following: Serial bedside patient exams and Serial laboratory checks Acute pain control Initiation/active titration of vasoactive medications Initiation/monitoring/titration of anticoagulants I spent time documenting in the medical record, I spent time discussing the management of this critically ill patient with consultants and the medical staff and I spent time reviewing and interpreting data from bedside monitors, laboratory results, and imaging Cosigned by Yaneth Bull MD at 06/10/2020 11:40 AM FILL TECHNICIAN TECHNICIAN TECHNICIAN documented in this encounter Consult Notes * Cy Krause MD - 06/09/2020 2:15 PM CST Images from the original note were not included. [facility] - Consult Note- Britton [place] is a 65 y.o. male - Date of : 1955 Primary care doctor: Scott Oneill MD Reason for initial consultation: No diagnosis found. Review of Systems: As per HPI, otherwise symptoms reported, and pertinent negatives are listed below; all other symptoms are unreported or negative Current Medication List: Scheduled Meds:atorvastatin, 20 mg, oral, Daily [START ON 06/11/2020] bisacodyL, 10 mg, rectal, Once gabapentin, 300 mg, oral, Nightly labetaloL, 200 mg, oral, BID sodium chloride 0.9%, 0.5-20 mL, intra-catheter, Q8H ANUEL Continuous Infusions:heparin, 0-33 Units/kg/hr, Last Rate: 7.928 Units/kg/hr (06/09/20 1301) [START ON 06/12/2020] sodium chloride 0.9%, 30 mL/hr sodium chloride 0.9%, 10 mL/hr PRN Meds:.??? acetaminophen ??? heparin OR heparin ??? ondansetron ODT OR ondansetron ??? sodium chloride 0.9% ??? sodium chloride 0.9% ??? sodium chloride 0.9% Family History Problem Relation Age of Onset ??? Heart disease Mother ??? Heart disease Father ??? Other (Septic ) Sister ??? Cancer Brother Social History Socioeconomic History ??? Marital status: Spouse name: Not on file ??? Number of children: Not on file ??? Years of education: Not on file ??? Highest education level: Not on file Tobacco Use ??? Smoking status: Former Smoker ??? Smokeless tobacco: Never Used Substance and Sexual Activity ??? Alcohol use: Yes Comment: 6 beers a year ??? Drug use: Not Currently Previous weight Wt Readings from Last 3 Encounters: 06/08/20 95.8 kg (211 lb 3.2 oz) 05/22/20 96.1 kg (211 lb 12.8 oz) 05/04/20 95.6 kg (210 lb 12.8 oz) History: Mr. Nielsen is a 65 y/o patient of Dr. Flo Barnard with a hs of microscopic polyangiitis, s/p immunosuppressive rx. He is admitted now for evaluation prior to planned CABG on 06/12/20. Renal consultation was requested for management of CKD. Past Medical History: Diagnosis Date ??? Arthritis ??? DVT (deep venous thrombosis) (CMS/HCC) ??? History of transfusion ??? Hyperlipidemia ??? Hypertension ??? Overweight ??? Renal failure ??? Skin cancer ??? Sleep apnea Past Surgical History: Procedure Laterality Date ??? NO PAST SURGERIES Vital Signs: Vitals: 06/09/20 1330 BP: 134/66 Pulse: Resp: 18 Temp: 36.8 ??C (98.2 ??F) SpO2: 98% Intake/Output Summary (Last 24 hours) at 06/09/2020 1415 Last data filed at 06/09/2020 0830 Gross per 24 hour Intake 120 ml Output 260 ml Net -140 ml Physical Exam: General: Well nourished, in no distress, alert and conversant Head: No evidence of trauma, no facial edema Eyes: Conjugate gaze, equal pupils, no conjunctivitis or icterus Nose: No visible drainage or epistaxis Neck: symmetric, no visible JVD or adenopathy Chest: No SOB, normal resp effort, no wheezing Heart: Regular rate and rhythm Abd: Does not appear distended, no reported tenderness Extremities: No LE edema noted Skin: No rash, purpura, or wounds on exposed skin Mental status: Alert, appropriate affect, intact congnition Neuro: No focal neurologic deficits identified. Gait not assessed Recent Labs Lab Units 06/09/20 0620 06/08/20 1832 WBC K/cumm 6.3 5.7 5.6 HEMOGLOBIN g/dL 8.9* 9.1* 9.1* HEMATOCRIT % 27.7* 28.7* 28.7* PLATELETS K/cumm 150 166 154 Review of urine sediment notable for negative proteinuria and WBC. There are 1-3 RBC/hpf and rare acanthocytes. no casts at all. Recent Labs Lab Units 06/08/20 1832 SODIUM mmol/L 143 POTASSIUM PLASMA mmol/L 3.9 CHLORIDE mmol/L 108 CO2 mmol/L 25 BUN SERUM mg/dL 23 CREATININE mg/dL 1.95* CALCIUM mg/dL 8.3* ALBUMIN g/dL 3.5 Impression and Recommendations: CKD3 Hx MPA - s/p immunosuppressive rx - no clinical evidence of recurrent disease CAD - plan for CABG 06/12/20 Agree with current rx. Will check f/u iron studies and replete iron IV if indicated. ELKIN if indicated as well Cy Krause MD [phone] - office - fax TECHNICIAN documented in this encounter Miscellaneous Notes * Plan of Care - Francisca Scherer RN - 06/15/2020 7:34 AM CDT Home health care orders received. Patient agreeable to [facility]. * Plan of Care - Addison Armstrong RN - 06/14/2020 5:42 PM CDT Home health order and CM note reviewed, I will be arranging [facility] [phone], [facility] * Plan of Care - Maliha Tamez RN - 06/14/2020 4:48 PM CDT Goals: Clinical Goals for the Shift: OOB, amb, use IS, control pain. Monitor VS and I&O. Summary: Pt has been OOB, amb and using IS well. Remains on O2 at 1-2 liters as he is 85-88% on R/A. Irizarry and CT's Dc'd today. Oxycodone for pain with relief noted. VSS In 1940 Out 200. * Plan of Care - Francisca Scherer RN - 06/14/2020 11:21 AM CDT Met with patient and at bedside to assess discharge planning needs. LIves at home with . Independent with adl's. No use of any assistive device for ambulation or any other dme guard captain. States discharge plan is to return home with . is going to take some time off work to be at home with and is planning on looking into private duty care when she has to return to work. Discussed home health care ( order currently pending). Patient agreeable to [facility]. Case management will continue to monitor patients progress and assist with discharge planning. * Provider Query - Jono Kovacs PA - 06/14/2020 10:46 AM CDT Please further specify Chronic Kidney Disease stage 3 and document in the medical record and on theform below. _x__ Chronic Kidney Disease, Stage 3 (Moderate) (GFR 30-59)* ___Stage 3a (GFR 45-59)* __x_Stage 3b (GFR 30-44)* ___ Clinically unable to determine Additional Provider Response: Clinical Indicators/Treatments: 3-12 renal consult: CKD3 3-15 CVR LAND DEVELOPER progress note: Acute kidney injury on chronic kidney disease stage 3, hyperkalemia Admission Cr 1.97, Cr up to 2.2 preop. Likely some JACQUELYN due to dye from recent C. Intraop Labs - current admission 06-08-2020 BUN 23 Cr 1.95 GFR 35 06-12-2020 BUN 26 Cr 2.20 GFR 30 06-13-2020 BUN 25 Cr 2.18 GFR 30 06-14-2020 BUN 35 Cr 2.53 GFR 25 *CKD stage Definition ([employer]) Use of terms such as likely, suspected, possible, or probable (associated with a specific diagnosisthat is being evaluated, monitored, or treated as if it exists) are acceptable and can be coded in the inpatient setting when documented at the time of discharge. This documentation will become part of the patient???s medical record. Sincerely, Obdulia Henry RN, BSN, CCDS Certified Clinical Relay Assembler Health Information Management * Plan of Care - Gertrudis Bhatt RN - 06/14/2020 3:32 AM CDT Goals: Clinical Goals for the Shift: VSS, monitor tele, pain control, tolerate diet, bsg wnl, safety, labswnl Summary: VSS, 3L nasal cannula, SR on tele, pain controlled with scheduled tylenol and prn oxycodone/dilaudid for breakthru, tolerating diet, MCT and PCT to suction, irizarry in place with removal planned in AM, bsg achs - normally does not check at home or take any medications, up with GB walker x1, scds and heparin for VTE, continue with plan of care. * Op Note - Hernan Cordero MD - 06/12/2020 4:00 PM CDT OPERATIVE REPORT SURGEON Hernan Cordero MD CHUTE TAPPER Ami Unger PREOPERATIVE DIAGNOSES Multiple vessel coronary artery disease with accelerating angina POSTOPERATIVE DIAGNOSES Same PROCEDURE PERFORMED Procedure(s): CORONARY ARTERY BYPASS GRAFT x 3 using left internal mammary artery, endoharvested left radial artery, and bilateral endoharvested greater saphenous vein graft. Left internal mammary artery to the distal LAD, saphenous vein graft to the intermediate, saphenousvein graft to the right coronary posterior descending branch DATE OF PROCEDURE 06/12/2020 ANESTHESIA General Endotracheal Anesthesia ANESTHESIOLOGIST Red Kamara BRIEF HISTORY Mr. Nielsen is a 65-year-old patient who presented to [facility] with chest pain, cardiac catheterization showed a 50-60% distal left main coronary stenosis, a 90% lesion of the proximal circumflex affecting a bifurcating intermediate and circumflex proper, and a 90% right coronary lesion. He has multiple medical illnesses including morbid obesity, stage 3 kidney disease secondary to glomerulonephritis in the past, deep vein thrombosis involving the right popliteal vein in the left lower leg vein in 2017, hypertension, former smoking, hyperlipidemia; we offered him high risk bypass graft surgery explained the risks of bleeding, infection, stroke, blood transfusion, and . The pat ient was quite anemic on arrival to the operating room and he got 2 units of blood while on bypass.At operation we initially harvested his left radial artery but this proved to be too small and calcified use. Accordingly we harvested vein from both lower legs in these proved to be decent conduits.His left internal mammary artery was of good quality placed to the distal LAD. His arteries were all incredibly calcified, the operation was tedious due to this fact. Good flows were measured in the grafts, the patient came off bypass very nicely. DESCRIPTION OF PROCEDURE After delivery of the patient to the operating room, the patient was placed under a general anesthetic and was prepped and draped in the usual sterile manner.. A median sternotomy was made left internal mammary artery was taken from the left chest wall as a saphenous vein was taken endoscopically from the right lower leg and the left radial artery was taken endoscopically per protocol from the left forearm. We then decided that the radial artery was too small and the left lower leg vein was then harvested endoscopically. The patient was then heparinized and cannulated and placed on cardiopulmonary bypass. The aorta was crossclamped and the heart was stopped with antegrade and retrograde cold blood cardioplegia solution. Initially the right coronary was dissected free this was a calcified pipe all the way down to the bifurcation. There was a small posterior descending branch to which a vein was placed using a running 7 0 Prolene suture. Next the heart was displaced into the right chestand we spent a considerable amount of time trying to identify what was the intermediate and what was the proximal marginal, and on the films the intermediate appear to be the better vessel. Eventually we were able to dissect out what we decided was the in fact the intermediate, and a vein was placed to it and this was a good- sized vessel. Next we found a soft spot in the distal LAD to which a nice mammary artery was placed. With the cross-clamp in place, the 2 proximal aortotomies were made, the 2 proximal anastomoses were performed using 6 0 Prolene. Patient was then weaned from bypass, the cannulas were removed, the cannulation sites were secured. Flows were measured and found to be excellent. Chest tubes were placed and the wound was closed. Final needle, instruments, sponges were correct. Patient returned to the CVR in stable condition. * Plan of Care - Floridalma Schmid RN - 06/12/2020 3:13 AM CDT Problem: Health Behavior: Goal: Understanding of discharge needs will improve Outcome: Progressing Problem: Cardiac: Goal: Postprocedural complications will be avoided or minimized Outcome: Progressing Problem: Lack of Knowledge: Goal: Understanding of discharge needs will improve Outcome: Progressing Problem: Coping: Goal: Level of anxiety will decrease Outcome: Progressing Problem: Sensory: Goal: Pain level will decrease Outcome: Progressing Problem: Skin Integrity: Goal: Will regain and/or maintain adequate tissue perfusion Outcome: Progressing Problem: Lack of Knowledge: Goal: Knowledge of disease or condition and prescribed therapeutic regimen will improve Outcome: Progressing Problem: Coping: Goal: Level of anxiety will decrease Outcome: Progressing Problem: Sensory: Goal: Pain level will decrease Outcome: Progressing Goals: Clinical Goals for the Shift: Monitor tele, labs, vs, NPO and mid, Summary: VSS, pt NSR in 60-80. Pt is independent and on RA. Pt is currently receiving cont. Infusion with Nitroglycerin, Heparin, and NS. Pt is NPO and expecting to go down for CABG early this morning. Pt has complained once of chest pain, pain was quickly resolved within 3 minutes. * Plan of Care - Kev Frank RN - 06/11/2020 3:35 PM CDT Problem: Health Behavior: Goal: Understanding of discharge needs will improve Outcome: Progressing Problem: Lack of Knowledge: Goal: Understanding of discharge needs will improve Outcome: Progressing Goals: Clinical Goals for the Shift: monitor tele, assess for CP/nitro gtt, and bleeding/heparin gtt Summary: pt will begin CABG prep this evening. Scheduled for 06/12. * Plan of Care - Lucila Jimenez RN - 06/11/2020 4:10 AM CDT Goals: Clinical Goals for the Shift: Stable vs,tele,labs. No chest pain Summary: Pt had 1 episode of sudden onset cp when nitro gtt became occluded, pain quickly resolved.VSS on RA. SR 60-70's. Nitro gtt@50mcg/min and heparin gtt@7.5u/kg/hr. CABG 06/12. Await additional orders. Problem: Health Behavior: Goal: Understanding of discharge needs will improve Outcome: Progressing Problem: Cardiac: Goal: Postprocedural complications will be avoided or minimized Outcome: Progressing Problem: Lack of Knowledge: Goal: Understanding of discharge needs will improve Outcome: Progressing Problem: Coping: Goal: Level of anxiety will decrease Outcome: Progressing Problem: Sensory: Goal: Pain level will decrease Outcome: Progressing Problem: Skin Integrity: Goal: Will regain and/or maintain adequate tissue perfusion Outcome: Progressing Problem: Lack of Knowledge: Goal: Knowledge of disease or condition and prescribed therapeutic regimen will improve Outcome: Progressing Problem: Coping: Goal: Level of anxiety will decrease Outcome: Progressing Problem: Sensory: Goal: Pain level will decrease Outcome: Progressing * Plan of Care - Kev Frank RN - 06/10/2020 4:28 PM CST Problem: Health Behavior: Goal: Understanding of discharge needs will improve Outcome: Progressing Goals: Clinical Goals for the Shift: monitor tele, monitor heparin gtt, monitor nitro gtt Summary: pt is mentally preparing for surgery on Friday. Pt is on heparin and tridil gtts. Consent is not printed or signed. TECHNICIAN * Plan of Care - Lucila Jimenez RN - 06/10/2020 4:56 AM CST Goals: Clinical Goals for the Shift: Stable vs,tele,labs. No chest pain Summary: Pt c/o chest pain (pressure and burning). Started on nitro gtt, titrated up to 50mcg/min. CVR PA aware. Hep gtt@7.5u/kg/hr. Daily PTT's. VSS on RA. SR 60-80's. Currently chest pain free. Plan for CABG 06/12. Await additional orders. Problem: Coping: Goal: Level of anxiety will decrease Outcome: Not Progressing Problem: Sensory: Goal: Pain level will decrease Outcome: Not Progressing Problem: Skin Integrity: Goal: Will regain and/or maintain adequate tissue perfusion Outcome: Not Progressing Problem: Lack of Knowledge: Goal: Knowledge of disease or condition and prescribed therapeutic regimen will improve Outcome: Not Progressing Problem: Coping: Goal: Level of anxiety will decrease Outcome: Not Progressing Problem: Sensory: Goal: Pain level will decrease Outcome: Not Progressing Problem: Health Behavior: Goal: Understanding of discharge needs will improve Outcome: Progressing Problem: Cardiac: Goal: Postprocedural complications will be avoided or minimized Outcome: Progressing Problem: Lack of Knowledge: Goal: Understanding of discharge needs will improve Outcome: Progressing TECHNICIAN * Plan of Care - Kev Frank RN - 06/09/2020 3:47 PM CST Problem: Lack of Knowledge: Goal: Understanding of discharge needs will improve Outcome: Progressing Goals: Clinical Goals for the Shift: monitor tele, monitor heparin gtt, vein mapping, carotids today Summary: pt is scheduled for CABG on Friday. Orders written. RN had conversation with pt about whatto expect on Friday and Friday. Pt on heparin gtt with one therapeutic result. TECHNICIAN TECHNICIAN * Plan of Care - Karuna De La Fuente RN - 06/09/2020 3:07 AM CST Problem: Health Behavior: Goal: Understanding of discharge needs will improve Outcome: Progressing Problem: Cardiac: Goal: Postprocedural complications will be avoided or minimized Outcome: Progressing Problem: Lack of Knowledge: Goal: Understanding of discharge needs will improve Outcome: Progressing Problem: Coping: Goal: Level of anxiety will decrease Outcome: Progressing Problem: Sensory: Goal: Pain level will decrease Outcome: Progressing Problem: Skin Integrity: Goal: Will regain and/or maintain adequate tissue perfusion Outcome: Progressing Problem: Lack of Knowledge: Goal: Knowledge of disease or condition and prescribed therapeutic regimen will improve Outcome: Progressing Problem: Coping: Goal: Level of anxiety will decrease Outcome: Progressing Problem: Sensory: Goal: Pain level will decrease Outcome: Progressing Goals: Clinical Goals for the Shift: vss sr 80's, no bleed, no falls, no pain. Summary: patient in NSR 60s-80s, on RA, no c/o chest pain, heparin gtt, on RA, blood pressures 120-140s/50s, resting in chair. TECHNICIAN documented in this encounter Plan of Treatment Not on file documented as of this encounter Procedures Procedure Name Priority Date/Time Associated Diagnosis Comments XR CHEST 1 VIEW IP Routine 06/15/2020 6:42 AM CDT EGFR Routine 06/15/2020 12:30 AM CDT CBC WITHOUT DIFFERENTIAL Routine 06/15/2020 12:30 AM CDT PHOSPHORUS Routine 06/15/2020 12:30 AM CDT MAGNESIUM Routine 06/15/2020 12:30 AM CDT BASIC METABOLIC PANEL Routine 06/15/2020 12:30 AM CDT POCT GLUCOSE DEVICE Routine 06/14/2020 6 :34 PM CDT POCT GLUCOSE DEVICE Routine 06/14/2020 1 2:14 PM CDT XR CHEST 1 VIEW ED Urgent/IP Urgent 06/14/2020 11:15 AM CDT POCT GLUCOSE DEVICE Routine 06/14/2020 7 :59 AM CDT XR CHEST 1 VIEW IP Routine 06/14/2020 5:59 AM CDT EGFR Routine 06/14/2020 1:10 AM CDT CBC WITHOUT DIFFERENTIAL Routine 06/14/2020 1:10 AM CDT PHOSPHORUS Routine 06/14/2020 1:10 AM CDT MAGNESIUM Routine 06/14/2020 1:10 AM CDT BASIC METABOLIC PANEL Routine 06/14/2020 1:10 AM CDT POCT GLUCOSE DEVICE Routine 06/13/2020 8 :52 PM CDT POCT GLUCOSE DEVICE Routine 06/13/2020 5 :57 PM CDT POCT GLUCOSE DEVICE Routine 06/13/2020 1 0:32 AM CDT POCT GLUCOSE DEVICE Routine 06/13/2020 8 :13 AM CDT CRITICAL CARE Routine 06/13/2020 7:21 AM CDT Angina pectoris syndrome (CMS/HCC) XR CHEST 1 VIEW IP Routine 06/13/2020 5:42 AM CDT POCT GLUCOSE DEVICE Routine 06/13/2020 5 :28 AM CDT POCT GLUCOSE DEVICE Routine 06/13/2020 4 :03 AM CDT POCT GLUCOSE DEVICE Routine 06/13/2020 3 :25 AM CDT EGFR Routine 06/13/2020 1:45 AM CDT CALCIUM, IONIZED Routine 06/13/2020 1:45 AM CDT POCT GLUCOSE DEVICE Routine 06/13/2020 1 :45 AM CDT CBC WITHOUT DIFFERENTIAL Routine 06/13/2020 1:45 AM CDT PHOSPHORUS Routine 06/13/2020 1:45 AM CDT MAGNESIUM Routine 06/13/2020 1:45 AM CDT BASIC METABOLIC PANEL Routine 06/13/2020 1:45 AM CDT POCT GLUCOSE DEVICE Routine 06/12/2020 1 1:50 PM CDT CRITICAL CARE Routine 06/12/2020 11:20 PM CDT Angina pectoris syndrome ([facility]/HCC) POCT GLUCOSE DEVICE Routine 06/12/2020 1 0:49 PM CDT POCT GLUCOSE DEVICE Routine 06/12/2020 9 :52 PM CDT POCT GLUCOSE DEVICE Routine 06/12/2020 8 :59 PM CDT POTASSIUM LEVEL STAT 06/12/2020 7:53 PM CDT POCT GLUCOSE DEVICE Routine 06/12/2020 7 :50 PM CDT POCT GLUCOSE DEVICE Routine 06/12/2020 6 :52 PM CDT CRITICAL CARE Routine 06/12/2020 5:47 PM CDT Angina pectoris syndrome (CMS/HCC) POCT GLUCOSE DEVICE Routine 06/12/2020 5 :37 PM CDT POTASSIUM LEVEL Routine 06/12/2020 4:33 PM CDT POCT GLUCOSE DEVICE Routine 06/12/2020 4 :31 PM CDT BLOOD GAS, ARTERIAL Routine 06/12/2020 4 :27 PM CDT POCT GLUCOSE DEVICE Routine 06/12/2020 3 :51 PM CDT POCT GLUCOSE DEVICE Routine 06/12/2020 2 :52 PM CDT XR CHEST 1 VIEW ED Urgent/IP Urgent 06/12/2020 1:45 PM CDT POCT GLUCOSE DEVICE Routine 06/12/2020 1 :41 PM CDT POCT GLUCOSE DEVICE Routine 06/12/2020 1 :17 PM CDT EGFR STAT 06/12/2020 1:12 PM CDT CALCIUM, IONIZED STAT 06/12/2020 1:12 PM CDT APTT STAT 06/12/2020 1:12 PM CDT PROTIME-INR STAT 06/12/2020 1:12 PM CDT CBC WITHOUT DIFFERENTIAL STAT 06/12/2020 1:12 PM CDT PHOSPHORUS STAT 06/12/2020 1:12 PM CDT MAGNESIUM STAT 06/12/2020 1:12 PM CDT BLOOD GAS, ARTERIAL STAT 06/12/2020 1 :12 PM CDT BASIC METABOLIC PANEL STAT 06/12/2020 1:12 PM CDT POC BLOOD GAS AND CHEMISTRIES, ARTERIAL Routine 06/12/2020 12:41 PM CDT APTT STAT 06/12/2020 12:11 PM CDT PROTIME-INR STAT 06/12/2020 12:11 PM CDT FIBRINOGEN STAT 06/12/2020 12:11 PM CDT CBC WITHOUT DIFFERENTIAL STAT 06/12/2020 12:11 PM CDT POC BLOOD GAS AND CHEMISTRIES, ARTERIAL Routine 06/12/2020 12:10 PM CDT POC BLOOD GAS AND CHEMISTRIES, ARTERIAL Routine 06/12/2020 11:32 AM CDT POCT ACTIVATED CLOTTING TIME, HIGH RANGE Routine 06/12/2020 11:13 AM CDT POC BLOOD GAS AND CHEMISTRIES, ARTERIAL Routine 06/12/2020 11:08 AM CDT TRANSFUSE RED BLOOD CELLS Timed 06/12/2020 10:43 AM CDT POC BLOOD GAS AND CHEMISTRIES, VENOUS Routine 06/12/2020 10:29 AM CDT POC BLOOD GAS AND CHEMISTRIES, ARTERIAL Routine 06/12/2020 10:25 AM CDT TRANSFUSE RED BLOOD CELLS Timed 06/12/2020 10:17 AM CDT POCT ACTIVATED CLOTTING TIME, HIGH RANGE Routine 06/12/2020 10:11 AM CDT POCT ACTIVATED CLOTTING TIME, HIGH RANGE Routine 06/12/2020 9:31 AM CDT POC BLOOD GAS AND CHEMISTRIES, ARTERIAL Routine 06/12/2020 9:08 AM CDT POCT ACTIVATED CLOTTING TIME, HIGH RANGE Routine 06/12/2020 8:46 AM CDT POCT ACTIVATED CLOTTING TIME, HIGH RANGE Routine 06/12/2020 8:28 AM CDT CORONARY ARTERY BYPASS GRAFT 06/12/2020 7:30 AM CDT Coronary artery disease POCT ACTIVATED CLOTTING TIME, HIGH RANGE Routine 06/12/2020 6:55 AM CDT EGFR Routine 06/12/2020 3:21 AM CDT APTT Routine 06/12/2020 3:21 AM CDT CBC WITHOUT DIFFERENTIAL Routine 06/12/2020 3:21 AM CDT BASIC METABOLIC PANEL Routine 06/12/2020 3:21 AM CDT EGFR Routine 06/11/2020 11:41 AM CDT APTT Routine 06/11/2020 11:41 AM CDT CBC WITHOUT DIFFERENTIAL Routine 06/11/2020 11:41 AM CDT TYPE AND SCREEN Timed 06/11/2020 11:41 AM CDT BASIC METABOLIC PANEL Routine 06/11/2020 11:41 AM CDT TROPONIN T HIGH-SENSITIVITY 6-HOUR Timed 06/10/2020 2:11 AM FILL TECHNICIAN IRON PROFILE W/ IBC Routine 06/10/2020 2 :11 AM FILL TECHNICIAN APTT Routine 06/10/2020 2:11 AM FILL TECHNICIAN CBC WITHOUT DIFFERENTIAL Routine 06/10/2020 2:11 AM FILL TECHNICIAN HEMOGLOBIN A1C Routine 06/10/2020 2:11 AM FILL TECHNICIAN FERRITIN Routine 06/10/2020 2:11 AM FILL TECHNICIAN VITAMIN B12 Routine 06/10/2020 2:11 AM FILL TECHNICIAN LIPID PANEL Routine 06/10/2020 2:11 AM FILL TECHNICIAN TROPONIN T HIGH-SENSITIVITY 4-HR Timed 06/09/2020 11:59 PM FILL TECHNICIAN CRITICAL CARE Routine 06/09/2020 11:45 PM FILL TECHNICIAN Hypertension, unspecified type Angina pectoris syndrome (CMS/HCC) US VEIN MAPPING DUPLEX LOWER EXTREMITY BILATERAL IP Routine 06/09/2020 10:30 PM FILL TECHNICIAN TROPONIN T HIGH-SENSITIVITY 2-HOUR Timed 06/09/2020 10:11 PM FILL TECHNICIAN US CAROTIDS DUPLEX BILATERAL IP Routine 06/09/2020 10:00 PM FILL TECHNICIAN URINALYSIS AND REFLEX TO MICROSCOPIC AND CULTURE STAT 06/09/2020 9:48 PM FILL TECHNICIAN PROTEIN / CREATININE RATIO, URINE, RANDOM Routine 06/09/2020 9:48 PM FILL TECHNICIAN TROPONIN T HIGH-SENSITIVITY SERIES (BASELINE, 2HR, 4HR, 6HR) Routine 06/09/2020 8:07 PM FILL TECHNICIAN APTT Timed 06/09/2020 7:55 PM FILL TECHNICIAN ECG 12-LEAD STAT 06/09/2020 7:33 PM FILL TECHNICIAN Hypertension, unspecified type XR CHEST PA LATERAL 2 VIEWS IP Routine 06/09/2020 4:18 PM FILL TECHNICIAN APTT Timed 06/09/2020 12:04 PM FILL TECHNICIAN PREPARE RBC STAT 06/09/2020 11:12 AM FILL TECHNICIAN B CHECK SAMPLE Routine 06/09/2020 6:20 AM FILL TECHNICIAN CBC WITHOUT DIFFERENTIAL Routine 06/09/2020 6:20 AM FILL TECHNICIAN APTT Timed 06/09/2020 2:59 AM FILL TECHNICIAN EGFR Routine 06/08/2020 6:32 PM FILL TECHNICIAN APTT STAT 06/08/2020 6:32 PM FILL TECHNICIAN PROTIME-INR STAT 06/08/2020 6:32 PM FILL TECHNICIAN CBC WITHOUT DIFFERENTIAL STAT 06/08/2020 6:32 PM FILL TECHNICIAN CBC WITHOUT DIFFERENTIAL Routine 06/08/2020 6:32 PM FILL TECHNICIAN MAGNESIUM Routine 06/08/2020 6:32 PM FILL TECHNICIAN COMPREHENSIVE METABOLIC PANEL Routine 06/08/2020 6:32 PM FILL TECHNICIAN documented in this encounter Results * XR Chest 1 View - Portable - in AM (06/15/2020 6:42 AM CDT) Anatomical Region Laterality Modality Body, Chest N/A Computed Radiogr aphy 06/15/2020 7:46 AM CDT Impressions 06/15/2020 7:46 AM CDT 1. ??Decrease in size of the small left apical pneumothorax. 2. ??Trace effusions and mild edema. Electronically signed by: Batool Byers M.D. Narrative 06/15/2020 7:46 AM CDT EXAMINATION: Portable chest single view. HISTORY: Pleural effusion. FINDINGS: Single portable view of the chest is compared to prior 06/14/2020. ??Median sternotomy wires and CABG clips are redemonstrated. ??Right IJ CVC terminates in superior vena cava. Cardiomegaly is stable. ??Small effusions are redemonstrated. ??There is no new consolidation. ??Mild edema is similar to prior. ??Small left apical pneumothorax is decreased in size. Procedure Note Batool Byers MD PhD - 06/15/2020 EXAMINATION: Portable chest single view. HISTORY: Pleural effusion. FINDINGS: Single portable view of the chest is compared to prior 06/14/2020. Median sternotomy wires and CABG clips are redemonstrated. Right IJ CVC terminates in superior vena cava. Cardiomegaly is stable. Small effusions are redemonstrated. There is no new consolidation. Mild edema is similar to prior. Small left apical pneumothorax is decreased in size. IMPRESSION: 1. Decrease in size of the small left apical pneumothorax. 2. Trace effusions and mild edema. Electronically signed by: Batool Byers M.D. us Stacey Haskins LAND DEVELOPER IMG XR PROCEDURES Final Re sult * eGFR (06/15/2020 12:30 AM CDT) eGFR 27 mL/min/1.7 3 m2 [facility] Comment: Interpretive Data Reference Interval Normal ?>/= [...] was last reviewed 2020 Blood specimen (specimen) 06/15/2020 12:30 AM CDT 06/15/2020 1:15 AM CDT Stacey Blandoney LAND DEVELOPER LAB BLOOD ORDERABLES Final Result Performing Organization Address City/[facility]/ZIP Co de Phone Number [facility] [address] [facility] [address] [place], [place] [phone] * Phosphorus (06/15/2020 12:30 AM CDT) Pathologist [facility] Phosphorus, pl 3.6 2.3 - 4.5 mg/dL [facility] Blood specimen (specimen) 06/15/2020 12:30 AM CDT 06/15/2020 1:15 AM CDT Stacey Parkerestela Haskins LAND DEVELOPER LAB BLOOD ORDERABLES Final Result Performing Organization Address [facility] Co de Phone Number [facility] [address] [facility] [address] [place], [place] [phone] * Magnesium (06/15/2020 12:30 AM CDT) Pathologist [facility] Magnesium 2.4 1.4 - 2.5 mg/dL [facility] Blood specimen (specimen) 06/15/2020 12:30 AM CDT 06/15/2020 1:15 AM CDT Stacey Blandoney LAND DEVELOPER LAB BLOOD ORDERABLES Final Result Performing Organization Address City/[facility] Co de Phone Number [facility] [address] [facility] [address] [place], [place] [phone] * (ABNORMAL) Basic metabolic panel (06/15/2020 12:30 AM CDT) Pathologist [facility] Sodium 133(L) 135 - 145 mmol/L [facility] Potassium, pl 4.3 3.3 - 4.9 mmol/L [facility] Chloride 99 97 - 110 mmol/L [facility] CO2 22 22 - 32 mmol/L [facility] Anion gap 12 2 - 15 mmol/L [facility] BUN 50(H) 8 - 25 mg/dL [facility] Creatinine 2.43(H) 0.80 - 1.30 mg/dL [facility] Glucose 125 70 - 199 mg/dL [facility] Comment: Interpretive Data Fasting glucose >/= 126 [...] interpretive data was last revised 2017. Calcium 9.0 8.5 - 10.3 mg/dL [facility] Blood specimen (specimen) 06/15/2020 12:30 AM CDT 06/15/2020 1:15 AM CDT us Stacey Haskins NP LAB BLOOD ORDERABLES Final Result [facility] [address] Department of Laboratories [place], [place] [phone] * (ABNORMAL) CBC without differential (06/15/2020 12:30 AM CDT) WBC 5.2 3.8 - 9.9 K/cumm [facility] Hgb 9.1(L) 13.0 - 17.5 g/dL [facility] Hct 28.5(L) 38.9 - 50.3 % [facility] Plt 133(L) 150 - 400 K/cumm [facility] MPV 10.5 9.1 - 12.3 fL [facility] RBC 3.13(L) 4.30 - 5.80 M/cumm [facility] MCV 91.1 81.3 - 96.4 fL [facility] MCH 29.1 27.1 - 33.3 pg [facility] MCHC 31.9(L) 32.3 - 35.7 g/dL [facility] RDW CV 15.8(H) 11.1 - 14.9 % [facility] RDW SD 51.7(H) 35.7 - 48.1 fL [facility] NRBC abs 0.00 0.00 - 0.01 K/cumm [facility] Blood specimen (specimen) 06/15/2020 12:30 AM CDT 06/15/2020 1:14 AM CDT Stacey Haskins NP LAB BLOOD ORDERABLES Final Result Performing Organization Address [facility] Co de Phone Number [facility] [address] [place] [address] * POCT glucose (06/14/2020 6:34 PM CDT) Glucose, POC 119 70 - 140 mg/dL [facility] Comment: For Glucose values <35 mg/dl when Hematocrit is >60 mg/dl,the test may not accurately detect significant hypoglycemia,and testing in the Laboratory should be considered if clinically indicated. Blood specimen (specimen) 06/14/2020 6:34 PM CDT 06/14/2020 6:34 PM CDT Hernan Cordero MD LAB POCT ORDERABLES - DEVIC E Final Result Performing Organization Address [facility]/ZIP Co de Phone Number [facility] [address] [place] [address] * POCT glucose (06/14/2020 12:14 PM CDT) Glucose, POC 125 70 - 140 mg/dL [facility] Comment: For Glucose values <35 mg/dl when Hematocrit is >60 mg/dl,the test may not accurately detect significant hypoglycemia,and testing in the Laboratory should be considered if clinically indicated. Blood specimen (specimen) 06/14/2020 12:14 PM CDT 06/14/2020 12:14 PM CDT us Hernan Cordero MD LAB POCT ORDERABLES - DEVIC E Final Result [facility] [address] [place] [address] * XR Chest 1 View (06/14/2020 11:15 AM CDT) Anatomical Region Laterality Modality Body, Chest N/A Computed Radiogr aphy 06/14/2020 11:3 9 AM CDT Impressions 06/14/2020 11:39 AM CDT 1. ??Decrease in size of the small left apical pneumothorax status post chest tube removal. 2. ??Small effusions and mild edema. Electronically signed by: Batool Byers M.D. Narrative 06/14/2020 11:39 AM CDT EXAMINATION: Portable chest single view. HISTORY: Chest tube removal. FINDINGS: Single portable view of the chest is compared to prior 06/14/2020. ??Median sternotomy wires and CABG clips are redemonstrated. ??Right IJ CVC terminates in superior vena cava. Small effusions are present. ??Mild edema is similar to prior. ??Left chest tube has been removed. ??There is a small left apical pneumothorax, decreased in size from prior. Procedure Note Batool Byers MD PhD - 06/14/2020 EXAMINATION: Portable chest single view. HISTORY: Chest tube removal. FINDINGS: Single portable view of the chest is compared to prior 06/14/2020. Median sternotomy wires and CABG clips are redemonstrated. Right IJ CVC terminates in superior vena cava. Small effusions are present. Mild edema is similar to prior. Left chest tube has been removed. There is a small left apical pneumothorax, decreased in size from prior. IMPRESSION: 1. Decrease in size of the small left apical pneumothorax status post chest tube removal. 2. Small effusions and mild edema. Electronically signed by: Batool Byers M.D. Jono LLANOS IMG XR PROCEDURES Final Resu lt * POCT glucose (06/14/2020 7:59 AM CDT) Glucose, POC 100 70 - 140 mg/dL [facility] Comment: For Glucose values <35 mg/dl when Hematocrit is >60 mg/dl,the test may not accurately detect significant hypoglycemia,and testing in the Laboratory should be considered if clinically indicated. Blood specimen (specimen) 06/14/2020 7:59 AM CDT 06/14/2020 7:59 AM CDT us Hernan Cordero MD LAB POCT ORDERABLES - DEVIC E Final Result [facility] [address] [place] [address] * XR Chest 1 View - Portable - in AM (06/14/2020 5:59 AM CDT) Anatomical Region Laterality Modality Body, Chest N/A Computed Radiogr aphy 06/14/2020 8:08 AM CDT Impressions 06/14/2020 8:08 AM CDT 1. ??Small to moderate left apical pneumothorax. ??Left chest tube in place. ??This finding was discussed with WESTON Tamez by Dr. Byers at 8:06 AM on 06/14/2020. 2. ??Small effusions and mild edema. Electronically signed by: Batool Byers M.D. Narrative 06/14/2020 8:08 AM CDT EXAMINATION: Portable chest single view. HISTORY: Pleural effusion. FINDINGS: Single portable view of the chest is compared to prior 06/13/2020. ??Left chest tube, median sternotomy wires, pericardial drainage catheter, and right IJ CVC terminating in the superior vena cava are redemonstrated. ??[place]-Scott catheter has been removed. ??Small effusions and mild edema are redemonstrated. ??Marked cardiomegaly is stable. ??There is a small to moderate left apical pneumothorax. Procedure Note Batool Byers MD PhD - 06/14/2020 EXAMINATION: Portable chest single view. HISTORY: Pleural effusion. FINDINGS: Single portable view of the chest is compared to prior 06/13/2020. Left chest tube, median sternotomy wires, pericardial drainage catheter, and right IJ CVC terminating in the superior vena cava are redemonstrated. [place]-Scott catheter has been removed. Small effusions and mild edema are redemonstrated. Marked cardiomegaly is stable. There is a small to moderate left apical pneumothorax. IMPRESSION: 1. Small to moderate left apical pneumothorax. Left chest tube in place. This finding was discussed with WESTON Tamez by Dr. Byers at 8:06 AM on 06/14/2020. 2. Small effusions and mild edema. Electronically signed by: Batool Byers M.D. Stacey Haskins LAND DEVELOPER IMG XR PROCEDURES Final Re sult * eGFR (06/14/2020 1:10 AM CDT) [facility] Signature eGFR 25 mL/min/1.7 3 m2 [facility] Comment: Interpretive Data Reference Interval Normal ?>/= [...] was last reviewed 2020 Blood specimen (specimen) 06/14/2020 1:10 AM CDT 06/14/2020 1:24 AM CDT Stacey Haskins LAND DEVELOPER LAB BLOOD ORDERABLES Final Result Performing Organization Address City/[facility]/ZIP Co de Phone Number [facility] [address] [facility] [place] [address] * Phosphorus (06/14/2020 1:10 AM CDT) Phosphorus, pl 4.3 2.3 - 4.5 mg/dL [facility] Blood specimen (specimen) 06/14/2020 1:10 AM CDT 06/14/2020 1:24 AM CDT Stacey Haskins NP LAB BLOOD ORDERABLES Final Result Performing Organization Address [facility] Co de Phone Number [facility] [address] Department [place], [place] [phone] * Magnesium (06/14/2020 1:10 AM CDT) Magnesium 2.4 1.4 - 2.5 mg/dL [facility] Blood specimen (specimen) 06/14/2020 1:10 AM CDT 06/14/2020 1:24 AM CDT Stacey Iwona Haskins LAND DEVELOPER LAB BLOOD ORDERABLES Final Result Performing Organization Address City/[facility] Co de Phone Number [facility] [address] Department of [place], [place] [phone] * (ABNORMAL) Basic metabolic panel (06/14/2020 1:10 AM CDT) [facility] Sodium 135 135 - 145 mmol/L [facility] Potassium, pl 4.3 3.3 - 4.9 mmol/L [facility] Chloride 102 97 - 110 mmol/L [facility] CO2 22 22 - 32 mmol/L [facility] Anion gap 11 2 - 15 mmol/L [facility] BUN 35(H) 8 - 25 mg/dL [facility] Creatinine 2.53(H) 0.80 - 1.30 mg/dL [facility] Glucose 109 70 - 199 mg/dL [facility] Comment: Interpretive Data Fasting glucose >/= 126 [...] interpretive data was last revised 2017. Calcium 8.9 8.5 - 10.3 mg/dL [facility] Blood specimen (specimen) 06/14/2020 1:10 AM CDT 06/14/2020 1:24 AM CDT Stacey Haskins NP LAB BLOOD ORDERABLES Final Result [facility] [address] [place] [address] * (ABNORMAL) CBC without differential (06/14/2020 1:10 AM CDT) [facility] WBC 7.5 3.8 - 9.9 K/cumm [facility] Hgb 9.5(L) 13.0 - 17.5 g/dL [facility] Hct 29.9(L) 38.9 - 50.3 % [facility] Plt 129(L) 150 - 400 K/cumm [facility] MPV 9.7 9.1 - 12.3 fL [facility] RBC 3.33(L) 4.30 - 5.80 M/cumm [facility] MCV 89.8 81.3 - 96.4 fL [facility] MCH 28.5 27.1 - 33.3 pg [facility] MCHC 31.8(L) 32.3 - 35.7 g/dL [facility] RDW CV 16.0(H) 11.1 - 14.9 % [facility] RDW SD 52.3(H) 35.7 - 48.1 fL [facility] NRBC abs 0.00 0.00 - 0.01 K/cumm [facility] Blood specimen (specimen) 06/14/2020 1:10 AM CDT 06/14/2020 1:24 AM CDT Stacey Haskins NP LAB BLOOD ORDERABLES Final Result Performing Organization Address [facility]/ZIP Co de Phone Number [facility] [address] [employer] [place], [place] [phone] * POCT glucose (06/13/2020 8:52 PM CDT) Glucose, POC 117 70 - 140 mg/dL [facility] Comment: For Glucose values <35 mg/dl when Hematocrit is >60 mg/dl,the test may not accurately detect significant hypoglycemia,and testing in the Laboratory should be considered if clinically indicated. Blood specimen (specimen) 06/13/2020 8:52 PM CDT 06/13/2020 8:52 PM CDT us Hernan Cordero MD LAB POCT ORDERABLES - DEVIC E Final Result [facility] [address] Department [employer] [place], [place] [phone] * (ABNORMAL) POCT glucose (06/13/2020 5:57 PM CDT) Glucose, POC 225(H) 70 - 140 mg/dL [facility] Comment: For Glucose values <35 mg/dl when Hematocrit is >60 mg/dl,the test may not accurately detect significant hypoglycemia,and testing in the Laboratory should be considered if clinically indicated. Blood specimen (specimen) 06/13/2020 5:57 PM CDT 06/13/2020 5:57 PM CDT Hernan Cordero MD LAB POCT ORDERABLES - DEVIC E Final Result Performing Organization Address [facility] de Phone Number [facility] [address] [facility] [place] [address] * POCT glucose (06/13/2020 10:32 AM CDT) Glucose, POC 108 70 - 140 mg/dL [facility] Comment: For Glucose values <35 mg/dl when Hematocrit is >60 mg/dl,the test may not accurately detect significant hypoglycemia,and testing in the Laboratory should be considered if clinically indicated. Blood specimen (specimen) 06/13/2020 10:32 AM CDT 06/13/2020 10:32 AM CDT Result [facility] Hernan Cordero MD LAB POCT ORDERABLES - DEVIC E Final Result Performing Organization Address [facility] de Phone Number [facility] [address] [facility] [place] [address] * POCT glucose (06/13/2020 8:13 AM CDT) Glucose, POC 112 70 - 140 mg/dL [facility] Comment: For Glucose values <35 mg/dl when Hematocrit is >60 mg/dl,the test may not accurately detect significant hypoglycemia,and testing in the Laboratory should be considered if clinically indicated. Blood specimen (specimen) 06/13/2020 8:13 AM CDT 06/13/2020 8:13 AM CDT Result [facility] Hernan Cordero MD LAB POCT ORDERABLES - DEVIC E Final Result [facility] [address] Department [place] [address] * Critical Care (06/13/2020 7:21 AM CDT) Narrative Stacey Haskins NP - 06/13/2020 7:21 AM CDT Stacey Haskins NP ? 06/13/2020 ??2:11 PM Critical Care Performed by: Stacey Haskins NP Authorized by: Stacey Haskins NP CRITICAL CARE: ??Team: ??OTHER ??Shift: ??AM ??Level of Billing: ??Subsequent Hospital Visit Level 3 ??My time spent with this patient was 40 minutes: Critical Provider Statement: I have seen and examined the patient on this day of service. I have reviewed and confirmed the history, physical exam, laboratory, and radiographic data as documented in the ICU note. I have reviewed and discussed my treatment plan with the patient's team and other medical/food consultant staff. This time was in addition to and separate from care provided by other practitioners on this day of service. ?? us Stacey Haskins NP IN CLINIC/BEDSIDE ORDERABL ES Final Result * XR Chest 1 View - Portable - in AM (06/13/2020 5:42 AM CDT) Anatomical Region Laterality Modality Body, Chest N/A Computed Radiogr aphy 06/13/2020 9:46 AM CDT Impressions 06/13/2020 9:46 AM CDT The patient is status post a median sternotomy, mediastinal wires are aligned.. ??A right internal jugular catheter is in place, tip overlies the superior vena cava.. ??A Town[place]-Scott catheter is in place, tip overlies the pulmonary outflow tract. ??A left chest tube is in place The heart is mild to moderately enlarged. There is no pneumothorax. ??There are no definite effusions. Mild to moderate diffuse interstitial opacity is seen compatible with mild/moderate pulmonary edema overall stable from prior study. ??There is no mass or lymphadenopathy. . Electronically signed by: Neisha Franks M.D. Narrative 06/13/2020 9:46 AM CDT EXAMINATION: 1 view chest radiograph Procedure Note Neisha Franks MD - 06/13/2020 EXAMINATION: 1 view chest radiograph IMPRESSION: The patient is status post a median sternotomy, mediastinal wires are aligned.. A right internal jugular catheter is in place, tip overlies the superior vena cava.. A [place]-Scott catheter is in place, tip overlies the pulmonary outflow tract. A left chest tube is in place The heart is mild to moderately enlarged. There is no pneumothorax. There are no definite effusions. Mild to moderate diffuse interstitial opacity is seen compatible with mild/moderate pulmonary edema overall stable from prior study. There is no mass or lymphadenopathy. . Electronically signed by: Neisha Franks M.D. Stacey Haskins LAND DEVELOPER IMG XR PROCEDURES Final Re sult * POCT glucose (06/13/2020 5:28 AM CDT) Glucose, POC 122 70 - 140 mg/dL [facility] Comment: For Glucose values <35 mg/dl when Hematocrit is >60 mg/dl,the test may not accurately detect significant hypoglycemia,and testing in the Laboratory should be considered if clinically indicated. Blood specimen (specimen) 06/13/2020 5:28 AM CDT 06/13/2020 5:28 AM CDT Hernan Cordero MD LAB POCT ORDERABLES - DEVIC E Final Result [facility] [address] Department [place] [address] * POCT glucose (06/13/2020 4:03 AM CDT) Glucose, POC 118 70 - 140 mg/dL [facility] Comment: For Glucose values <35 mg/dl when Hematocrit is >60 mg/dl,the test may not accurately detect significant hypoglycemia,and testing in the Laboratory should be considered if clinically indicated. Blood specimen (specimen) 06/13/2020 4:03 AM CDT 06/13/2020 4:03 AM CDT Hernan Cordero MD LAB POCT ORDERABLES - DEVIC E Final Result Performing Organization Address [facility] de Phone Number [facility] [address] Department [place], [place] [phone] * POCT glucose (06/13/2020 3:25 AM CDT) [facility] Glucose, POC 119 70 - 140 mg/dL [facility] Comment: For Glucose values <35 mg/dl when Hematocrit is >60 mg/dl,the test may not accurately detect significant hypoglycemia,and testing in the Laboratory should be considered if clinically indicated. Blood specimen (specimen) 06/13/2020 3:25 AM CDT 06/13/2020 3:25 AM CDT Hernan Cordero MD LAB POCT ORDERABLES - DEVIC E Final Result Performing Organization Address [facility] de Phone Number [facility] [address] [place] [address] * eGFR (06/13/2020 1:45 AM CDT) [facility] eGFR 30 mL/min/1.7 3 m2 [facility] Comment: Interpretive Data Reference Interval Normal ?>/= [...] was last reviewed 2020 Blood specimen (specimen) 06/13/2020 1:45 AM CDT 06/13/2020 2:04 AM CDT us Stacey Haskins NP LAB BLOOD ORDERABLES Final Result Performing Organization Address [facility] de Phone Number [facility] [address] Department of Laboratories [place], [place] [phone] * POCT glucose (06/13/2020 1:45 AM CDT) Glucose, POC 107 70 - 140 mg/dL [facility] Comment: For Glucose values <35 mg/dl when Hematocrit is >60 mg/dl,the test may not accurately detect significant hypoglycemia,and testing in the Laboratory should be considered if clinically indicated. Blood specimen (specimen) 06/13/2020 1:45 AM CDT 06/13/2020 1:45 AM CDT us Hernan Cordero MD LAB POCT ORDERABLES - DEVIC E Final Result Performing Organization Address [facility] Co de Phone Number [facility] [address] Department of Laboratories [place], [place] [phone] * (ABNORMAL) Phosphorus (06/13/2020 1:45 AM CDT) Phosphorus, pl 4.9(H) 2.3 - 4.5 mg/dL [facility] Comment:Reviewed Blood specimen (specimen) 06/13/2020 1:45 AM CDT 06/13/2020 2:04 AM CDT Stacey Haskins LAND DEVELOPER LAB BLOOD ORDERABLES Final Result Performing Organization Address [facility] Co de Phone Number [facility] [address] [facility] [place] [address] * (ABNORMAL) Magnesium (06/13/2020 1:45 AM CDT) Magnesium 2.7(H) 1.4 - 2.5 mg/dL [facility] Blood specimen (specimen) 06/13/2020 1:45 AM CDT 06/13/2020 2:04 AM CDT Stacey Haskins LAND DEVELOPER LAB BLOOD ORDERABLES Final Result Performing Organization Address [facility] de Phone Number [facility] [address] [facility] [place] [address] * Calcium, ionized (06/13/2020 1:45 AM CDT) Pathologist [facility] Calcium, Ionized 4.70 4.40 - 5.40 mg/dL [facility] Blood specimen (specimen) 06/13/2020 1:45 AM CDT 06/13/2020 1:59 AM CDT Stacey Haskins LAND DEVELOPER LAB BLOOD ORDERABLES Final Result Performing Organization Address [facility] Co de Phone Number [facility] [address] [facility] [place] [address] * (ABNORMAL) Basic metabolic panel (06/13/2020 1:45 AM CDT) Sodium 140 135 - 145 mmol/L [facility] Potassium, pl 5.2(H) 3.3 - 4.9 mmol/L [facility] Chloride 108 97 - 110 mmol/L [facility] CO2 21(L) 22 - 32 mmol/L [facility] Anion gap 11 2 - 15 mmol/L [facility] BUN 25 8 - 25 mg/dL [facility] Creatinine 2.18(H) 0.80 - 1.30 mg/dL [facility] Glucose 123 70 - 199 mg/dL [facility] Comment: Interpretive Data Fasting glucose >/= 126 [...] interpretive data was last revised 2017. Calcium 8.6 8.5 - 10.3 mg/dL [facility] Blood specimen (specimen) 06/13/2020 1:45 AM CDT 06/13/2020 2:04 AM CDT Stacey Haskins NP LAB BLOOD ORDERABLES Final Result [facility] [address] Department of Laboratories [place], [place] [phone] * (ABNORMAL) CBC without differential (06/13/2020 1:45 AM CDT) WBC 8.0 3.8 - 9.9 K/cumm [facility] Hgb 10.1(L) 13.0 - 17.5 g/dL [facility] Hct 31.0(L) 38.9 - 50.3 % [facility] Plt 116(L) 150 - 400 K/cumm [facility] MPV 9.8 9.1 - 12.3 fL [facility] RBC 3.52(L) 4.30 - 5.80 M/cumm [facility] MCV 88.1 81.3 - 96.4 fL [facility] MCH 28.7 27.1 - 33.3 pg [facility] MCHC 32.6 32.3 - 35.7 g/dL [facility] RDW CV 15.8(H) 11.1 - 14.9 % [facility] RDW SD 50.4(H) 35.7 - 48.1 fL [facility] NRBC abs 0.00 0.00 - 0.01 K/cumm [facility] Blood specimen (specimen) 06/13/2020 1:45 AM CDT 06/13/2020 2:04 AM CDT Stacey Haskins LAND DEVELOPER LAB BLOOD ORDERABLES Final Result Performing Organization Address [facility] Co de Phone Number [facility] [address] Department [place] [address] * POCT glucose (06/12/2020 11:50 PM CDT) [facility] Glucose, POC 121 70 - 140 mg/dL [facility] Comment: For Glucose values <35 mg/dl when Hematocrit is >60 mg/dl,the test may not accurately detect significant hypoglycemia,and testing in the Laboratory should be considered if clinically indicated. Blood specimen (specimen) 06/12/2020 11:50 PM CDT 06/12/2020 11:50 PM CDT Hernan Cordero MD LAB POCT ORDERABLES - DEVIC E Final Result Performing Organization Address [facility] de Phone Number [facility] [address] Department [place] [address] * Critical Care (06/12/2020 11:20 PM CDT) Narrative Yaneth Bull MD - 06/12/2020 11:20 PM CDT Yevgeniy Gonzalez PA ? 06/13/2020 ??9:33 AM Critical Care Performed by: Yevgeniy Gonzalez PA Authorized by: Yevgeniy Gonzalez PA CRITICAL CARE: ??Team: ??OTHER ??Shift: ??PM ??Level of Billing: ??Critical Care ??My time spent with this patient was 70 minutes: Critical Provider Statement: I have seen and examined the patient on this day of service. I have reviewed and confirmed the history, physical exam, laboratory and radiologic data as documented in the signed ICU note. I have reviewed and discussed my treatment plan with the ICU team and other medical/food consultant staff, making frequent assessments and decisions regarding this patient's complex medical care. Critical Care time was exclusive of time spent performing separately billed procedures, treating other patients, and teaching. This time was in addition to and separate from critical care provided by other practitioners in my group on this day of service. Critical Care was necessary to treat or prevent imminent or life-threatening deterioration of the following conditions: ? Acute pain/acute postoperative pain ?? Hypertensive crisis and [id number] mycardial infarction (Non-STEMI) ?? Acute respiratory failure following procedure/surgery ?? Acute kidney injury and Hyperkalemia ?? Acute blood loss anemia ??This time was spent by me doing the following: ? Serial bedside patient exams and Resuscitation with fluids ?? Acute pain control ?? Active and frequent reassessment of respiratory status and oxygen requirements and Invasive ventilator management, reassessment, and titration ?? Active diuresis and Active repletion of electrolytes ?? I spent time reviewing and interpreting data from bedside monitors, laboratory results, and imaging, I spent time discussing the management of this critically ill patient with consultants and the medical staff and I spent time documenting in the medical record us Yevgeniy LLANOS IN CLINIC/BEDSIDE ORDERABLE S Final Result * POCT glucose (06/12/2020 10:49 PM CDT) [facility] Signature Glucose, POC 122 70 - 140 mg/dL [facility] Comment: For Glucose values <35 mg/dl when Hematocrit is >60 mg/dl,the test may not accurately detect significant hypoglycemia,and testing in the Laboratory should be considered if clinically indicated. Blood specimen (specimen) 06/12/2020 10:49 PM CDT 06/12/2020 10:49 PM CDT Hernan Cordero MD LAB POCT ORDERABLES - DEVIC E Final Result [facility] [address] Department [place] [address] * POCT glucose (06/12/2020 9:52 PM CDT) Glucose, POC 117 70 - 140 mg/dL [facility] Comment: For Glucose values <35 mg/dl when Hematocrit is >60 mg/dl,the test may not accurately detect significant hypoglycemia,and testing in the Laboratory should be considered if clinically indicated. Blood specimen (specimen) 06/12/2020 9:52 PM CDT 06/12/2020 9:52 PM CDT Hernan Cordero MD LAB POCT ORDERABLES - DEVIC E Final Result Performing Organization Address [facility] Co de Phone Number [facility] [address] [facility] [place], [place] [phone] * POCT glucose (06/12/2020 8:59 PM CDT) Glucose, POC 123 70 - 140 mg/dL [facility] Comment: For Glucose values <35 mg/dl when Hematocrit is >60 mg/dl,the test may not accurately detect significant hypoglycemia,and testing in the Laboratory should be considered if clinically indicated. Blood specimen (specimen) 06/12/2020 8:59 PM CDT 06/12/2020 8:59 PM CDT Hernan Cordero MD LAB POCT ORDERABLES - DEVIC E Final Result Performing Organization Address City/[facility]/ZIP Co de Phone Number [facility] [address] [facility] [place] [address] * (ABNORMAL) Potassium (06/12/2020 7:53 PM CDT) Potassium, pl 5.2(H) 3.3 - 4.9 mmol/L [facility] Blood specimen (specimen) 06/12/2020 7:53 PM CDT 06/12/2020 7:59 PM CDT Stacey Haskins NP LAB BLOOD ORDERABLES Final Result Performing Organization Address [facility]/ZIP Co de Phone Number [facility] [address] [facility] [place], [place] [phone] * POCT glucose (06/12/2020 7:50 PM CDT) Glucose, POC 128 70 - 140 mg/dL [facility] Comment: For Glucose values <35 mg/dl when Hematocrit is >60 mg/dl,the test may not accurately detect significant hypoglycemia,and testing in the Laboratory should be considered if clinically indicated. Blood specimen (specimen) 06/12/2020 7:50 PM CDT 06/12/2020 7:50 PM CDT Hernan Cordero MD LAB POCT ORDERABLES - DEVIC E Final Result Performing Organization Address [facility] Co de Phone Number [facility] [address] [facility] [place] [address] * POCT glucose (06/12/2020 6:52 PM CDT) Glucose, POC 115 70 - 140 mg/dL [facility] Comment: For Glucose values <35 mg/dl when Hematocrit is >60 mg/dl,the test may not accurately detect significant hypoglycemia,and testing in the Laboratory should be considered if clinically indicated. Blood specimen (specimen) 06/12/2020 6:52 PM CDT 06/12/2020 6:52 PM CDT Hernan Cordero MD LAB POCT ORDERABLES - DEVIC E Final Result Performing Organization Address City/[facility]/ZIP Co de Phone Number [facility] [address] [facility] [address] [place], [place] [phone] * Critical Care (06/12/2020 5:47 PM CDT) Narrative Stacey Haskins NP - 06/12/2020 5:47 PM CDT Stacey Haskins NP ? 06/12/2020 ??5:49 PM Critical Care Performed by: Stacey Haskins NP Authorized by: Stacey Haskins NP CRITICAL CARE: ??Team: ??OTHER ??Shift: ??AM ??Level of Billing: ??Critical Care ??My time spent with this patient was 100 minutes: Critical Provider Statement: I have seen and examined the patient on this day of service. I have reviewed and confirmed the history, physical exam, laboratory and radiologic data as documented in the signed ICU note. I have reviewed and discussed my treatment plan with the ICU team and other medical/food consultant staff, making frequent assessments and decisions regarding this patient's complex medical care. Critical Care time was exclusive of time spent performing separately billed procedures, treating other patients, and teaching. This time was in addition to and separate from critical care provided by other practitioners in my group on this day of service. Critical Care was necessary to treat or prevent imminent or life-threatening deterioration of the following conditions: ? Acute pain/acute postoperative pain and Agitation requiring sedation ?? Hypotension ?? Hypertension ?? Acute respiratory insufficiency ?? Acute kidney injury, Acute electrolyte derangement, Hyperkalemia and Hypo- or Hyperglycemia ?? Acute blood loss anemia ?? Leukocytosis ??This time was spent by me doing the following: ? Resuscitation with fluids, Serial bedside patient exams and Serial laboratory checks ?? Active titration of continuous sedation and Acute pain control ?? Initiation/active titration of vasoactive medications and Interpretation of cardiac output measurements ?? Active and frequent reassessment of respiratory status and oxygen requirements and Invasive ventilator management, reassessment, and titration ?? Active and frequent monitoring of intake/output and volumen status ?? Active repletion of electrolytes ?? Initiation/management of anti-platelet agents ?? I spent time reviewing and interpreting data from bedside monitors, laboratory results, and imaging, I spent time discussing the management of this critically ill patient with consultants and the medical staff and I spent time documenting in the medical record Stacey Haskins NP IN CLINIC/BEDSIDE ORDERABL ES Final Result * POCT glucose (06/12/2020 5:37 PM CDT) [facility] Glucose, POC 104 70 - 140 mg/dL [facility] Comment: For Glucose values <35 mg/dl when Hematocrit is >60 mg/dl,the test may not accurately detect significant hypoglycemia,and testing in the Laboratory should be considered if clinically indicated. Blood specimen (specimen) 06/12/2020 5:37 PM CDT 06/12/2020 5:37 PM CDT Result [facility] Hernan Cordero MD LAB POCT ORDERABLES - DEVIC E Final Result Performing Organization Address [facility] Co de Phone Number [facility] [address] [facility] [place] [address] * (ABNORMAL) Potassium (06/12/2020 4:33 PM CDT) Potassium, pl 5.1(H) 3.3 - 4.9 mmol/L [facility] Blood specimen (specimen) 06/12/2020 4:33 PM CDT 06/12/2020 4:33 PM CDT Result [facility] Stacey Haskins NP LAB BLOOD ORDERABLES Final Result Performing Organization Address [facility] Co de Phone Number [facility] [address] [facility] [place] [address] * POCT glucose (06/12/2020 4:31 PM CDT) Glucose, POC 89 70 - 140 mg/dL [facility] Comment: For Glucose values <35 mg/dl when Hematocrit is >60 mg/dl,the test may not accurately detect significant hypoglycemia,and testing in the Laboratory should be considered if clinically indicated. Blood specimen (specimen) 06/12/2020 4:31 PM CDT 06/12/2020 4:31 PM CDT Result [facility] Hernan Cordero MD LAB POCT ORDERABLES - DEVIC E Final Result Performing Organization Address [facility] Co de Phone Number [facility] [address] [employer] [place], [place] [phone] * (ABNORMAL) Blood gas, arterial (06/12/2020 4:27 PM CDT) pH, Art 7.33(L) 7.35 - 7.45 [facility] PCO2, Arterial 42 35 - 45 mmHg [facility] PO2, Arterial 76(L) 83 - 108 mmHg [facility] HCO3 Art (Calculated) 22 20 - 30 mmol/L [facility] BE, art -4 mmol/L [facility] Comment: Interpretive Data No Reference Range Established Current Interpretive Data was last revised on 2017 O2 Sat Art (Calculated) 94 94 - 98 % [facility] Blood specimen (specimen) 06/12/2020 4:27 PM CDT 06/12/2020 4:33 PM CDT Stacey Haskins NP LAB BLOOD ORDERABLES Final Result Performing Organization Address [facility]/ZIP Co de Phone Number [facility] [address] Department [employer] [place], [place] [phone] * POCT glucose (06/12/2020 3:51 PM CDT) Pathologist [facility] Glucose, POC 109 70 - 140 mg/dL [facility] Comment: For Glucose values <35 mg/dl when Hematocrit is >60 mg/dl,the test may not accurately detect significant hypoglycemia,and testing in the Laboratory should be considered if clinically indicated. Blood specimen (specimen) 06/12/2020 3:51 PM CDT 06/12/2020 3:51 PM CDT us Hernan Cordero MD LAB POCT ORDERABLES - DEVIC E Final Result [facility] [address] Department [employer] [place], [place] [phone] * (ABNORMAL) POCT glucose (06/12/2020 2:52 PM CDT) Glucose, POC 142(H) 70 - 140 mg/dL [facility] Comment: For Glucose values <35 mg/dl when Hematocrit is >60 mg/dl,the test may not accurately detect significant hypoglycemia,and testing in the Laboratory should be considered if clinically indicated. Blood specimen (specimen) 06/12/2020 2:52 PM CDT 06/12/2020 2:52 PM CDT Hernan Cordero MD LAB POCT ORDERABLES - DEVIC E Final Result [facility] [address] Department [place] [address] * XR Chest 1 View - Portable (06/12/2020 1:45 PM CDT) Anatomical Region Laterality Modality Body, Chest N/A Computed Radiogr aphy 06/12/2020 1:49 PM CDT Impressions 06/12/2020 1:49 PM CDT Endotracheal tube terminates in the distal trachea. Sternotomy wires are present and aligned. ??A right [place]-Scott catheter is present with its tip in the main pulmonary artery. ??The right-sided internal jugular venous catheter is present with its tip located at the superior cavoatrial junction. ??Gastric terminates in the gastric stomach with sidehole at the gastroesophageal junction. Left-sided thoracostomy tube place. ??There are numerous. ??Several clips. ??Clips noted at the diaphragmatic hiatus. ??Pericardial drain noted. There are bilateral reticular airspace opacities likely representing pulmonary edema. ??There is a trace left pleural effusion with associated left retrocardiac atelectasis. ??No pneumothorax. Cardiomediastinal silhouette is mildly enlarged likely secondary to recent surgery. ??Atherosclerotic calcifications of the aorta noted. Electronically signed by: Red Pradhan M.D. Narrative 06/12/2020 1:49 PM CDT EXAM: Chest 1 view CLINICAL HISTORY: Status post cardiac surgery COMPARISON: 06/09/2020 Procedure Note Red Pradhan MD - 06/12/2020 EXAM: Chest 1 view CLINICAL HISTORY: Status post cardiac surgery COMPARISON: 06/09/2020 IMPRESSION: Endotracheal tube terminates in the distal trachea. Sternotomy wires are present and aligned. A right [place]-Scott catheter is present with its tip in the main pulmonary artery. The right-sided internal jugular venous catheter is present with its tip located at the superior cavoatrial junction. Gastric terminates in the gastric stomach with sidehole at the gastroesophageal junction. Left-sided thoracostomy tube place. There are numerous. Several clips. Clips noted at the diaphragmatic hiatus. Pericardial drain noted. There are bilateral reticular airspace opacities likely representing pulmonary edema. There is a trace left pleural effusion with associated left retrocardiac atelectasis. No pneumothorax. Cardiomediastinal silhouette is mildly enlarged likely secondary to recent surgery. Atherosclerotic calcifications of the aorta noted. Electronically signed by: Red Pradhan M.D. Stacey Haskins [employer] IMG XR PROCEDURES Final Re sult * (ABNORMAL) POCT glucose (06/12/2020 1:41 PM CDT) Glucose, POC 190(H) 70 - 140 mg/dL [facility] Comment: For Glucose values <35 mg/dl when Hematocrit is >60 mg/dl,the test may not accurately detect significant hypoglycemia,and testing in the Laboratory should be considered if clinically indicated. Blood specimen (specimen) 06/12/2020 1:41 PM CDT 06/12/2020 1:41 PM CDT Hernan Cordero MD LAB POCT ORDERABLES - DEVIC E Final Result [facility] [address] Department [place] [address] * (ABNORMAL) POCT glucose (06/12/2020 1:17 PM CDT) Glucose, POC 183(H) 70 - 140 mg/dL [facility] Comment: For Glucose values <35 mg/dl when Hematocrit is >60 mg/dl,the test may not accurately detect significant hypoglycemia,and testing in the Laboratory should be considered if clinically indicated. Blood specimen (specimen) 06/12/2020 1:17 PM CDT 06/12/2020 1:17 PM CDT us Hernan Cordero MD LAB POCT ORDERABLES - DEVIC E Final Result Performing Organization Address [facility] Co de Phone Number [facility] [address] [place] [address] * eGFR (06/12/2020 1:12 PM CDT) eGFR 32 mL/min/1.7 3 m2 [facility] Comment: Interpretive Data Reference Interval Normal ?>/= [...] was last reviewed 2020 Blood specimen (specimen) 06/12/2020 1:12 PM CDT 06/12/2020 1:26 PM CDT us Stacey Haskins [employer]AND DEVELOPER LAB BLOOD ORDERABLES Final Result Performing Organization Address [facility] Co de Phone Number [facility] [address] [facility] [place] [address] * (ABNORMAL) aPTT (06/12/2020 1:12 PM CDT) aPTT 42(H) 27 - 37 sec [facility] Comment: Interpretive Data Therapeutic heparin range: 60.0 - 94.0 seconds. Based on correlation with therapeutic heparin activity range of 0.3-0.7 Units/mL. Current interpretive data was last revised on 2020. Blood specimen (specimen) 06/12/2020 1:12 PM CDT 06/12/2020 1:26 PM CDT Stacey Haskins NP LAB BLOOD ORDERABLES Final Result Performing Organization Address [facility] Co de Phone Number [facility] [address] [place] [address] * (ABNORMAL) Protime-INR (06/12/2020 1:12 PM CDT) PT 15.0(H) 9.5 - 13.6 sec [facility] INR 1.4(H) 0.9 - 1.2 [facility] Comment: Interpretive data Oral anticoagulant therapeutic ranges: Venous thromboembolism prophylaxis or treatment: 2.0-3.0 CARDIOLOGY Standard range: 2.0-3.0 High-intensity range: 2.5-3.5 Refer to indication-specific guidelines for appropriate target ranges for prosthetic heart valve replacement. Current interpretive data was last revised on 2019. Blood specimen (specimen) 06/12/2020 1:12 PM CDT 06/12/2020 1:26 PM CDT Stacey Haskins NP LAB BLOOD ORDERABLES Final Result Performing Organization Address [facility] Co de Phone Number [facility] [address] [place] [address] * (ABNORMAL) CBC without differential (06/12/2020 1:12 PM CDT) [facility] WBC 9.0 3.8 - 9.9 K/cumm [facility] Hgb 9.7(L) 13.0 - 17.5 g/dL [facility] Hct 30.1(L) 38.9 - 50.3 % [facility] Plt 98(L) 150 - 400 K/cumm [facility] MPV 9.9 9.1 - 12.3 fL [facility] RBC 3.41(L) 4.30 - 5.80 M/cumm [facility] MCV 88.3 81.3 - 96.4 fL [facility] MCH 28.4 27.1 - 33.3 pg [facility] MCHC 32.2(L) 32.3 - 35.7 g/dL [facility] RDW CV 15.2(H) 11.1 - 14.9 % [facility] RDW SD 49.1(H) 35.7 - 48.1 fL [facility] NRBC abs 0.00 0.00 - 0.01 K/cumm [facility] Blood specimen (specimen) 06/12/2020 1:12 PM CDT 06/12/2020 1:26 PM CDT Stacey Haskins LAND DEVELOPER LAB BLOOD ORDERABLES Final Result [facility] [address] Department [place] [address] * (ABNORMAL) Blood gas, arterial (06/12/2020 1:12 PM CDT) [facility] pH, Art 7.30(L) 7.35 - 7.45 [facility] PCO2, Arterial 39 35 - 45 mmHg [facility] PO2, Arterial 116(H) 83 - 108 mmHg [facility] HCO3 Art (Calculated) 19(L) 20 - 30 mmol/L [facility] BE, art -7 mmol/L [facility] Comment: Interpretive Data No Reference Range Established Current Interpretive Data was last revised on 2017 O2 Sat Art (Calculated) 98 94 - 98 % [facility] Blood specimen (specimen) 06/12/2020 1:12 PM CDT 06/12/2020 1:25 PM CDT Result [facility] Stacey Bustillo [facility] LAB BLOOD ORDERABLES Final Result Performing Organization Address [facility] Co de Phone Number [facility] [address] [facility] [place] [address] * Calcium, ionized (06/12/2020 1:12 PM CDT) [facility] Calcium, Ionized 5.11 4.40 - 5.40 mg/dL [facility] Blood specimen (specimen) 06/12/2020 1:12 PM CDT 06/12/2020 1:25 PM CDT Result [facility] LAB BLOOD ORDERABLES Final Result Performing Organization Address [facility] Co de Phone Number [facility] [address] [place] [address] * (ABNORMAL) Magnesium (06/12/2020 1:12 PM CDT) [facility] Magnesium 2.9(H) 1.4 - 2.5 mg/dL [facility] Blood specimen (specimen) 06/12/2020 1:12 PM CDT 06/12/2020 1:26 PM CDT Result [facility] LAB BLOOD ORDERABLES Final Result Performing Organization Address [facility] Co de Phone Number [facility] [address] [facility] [place] [place], [place] [phone] * (ABNORMAL) Basic metabolic panel (06/12/2020 1:12 PM CDT) [facility] Sodium 137 135 - 145 mmol/L [facility] Potassium, pl 4.6 3.3 - 4.9 mmol/L [facility] Chloride 108 97 - 110 mmol/L [facility] CO2 20(L) 22 - 32 mmol/L [facility] Anion gap 9 2 - 15 mmol/L [facility] BUN 24 8 - 25 mg/dL [facility] Creatinine 2.08(H) 0.80 - 1.30 mg/dL [facility] Glucose 215(H) 70 - 199 mg/dL [facility] Comment: Interpretive Data Fasting glucose >/= 126 [...] interpretive data was last revised 2017. Calcium 8.8 8.5 - 10.3 mg/dL [facility] Blood specimen (specimen) 06/12/2020 1:12 PM CDT 06/12/2020 1:26 PM CDT Stacey Haskins NP LAB BLOOD ORDERABLES Final Result [facility] [address] [employer] [place], [place] [phone] * (ABNORMAL) Phosphorus (06/12/2020 1:12 PM CDT) [facility] Phosphorus, pl 1.7(L) 2.3 - 4.5 mg/dL [facility] Blood specimen (specimen) 06/12/2020 1:12 PM CDT 06/12/2020 1:26 PM CDT Stacey Haskins NP LAB BLOOD ORDERABLES Final Result [facility] [address] Department [place], [place] [phone] * (ABNORMAL) POC Blood Gas and Chemistries, Arterial - (06/12/2020 12:41 PM CDT) pH, Art POC 7.34(L) 7.35 - 7.45 [facility] pCO2, Art POC 37 35 - 45 mmHg [facility] pO2, Art POC 291(H) 80 - 108 mmHg [facility] Na, POC 135 135 - 145 mmol/L [facility] K POC 4.9 3.3 - 4.9 mmol/L [facility] Comment: Interpretive Data Unable to assess hemolysis. ??Invitro hemolysis causes falsely elevated potassium. Current Interpretive Data was last revised on 2019. Cl, POC 114(H) 97 - 110 mmol/L [facility] Ionized Ca, POC 3.80(L) 4.40 - 5.40 mg/dL [facility] Glucose, POC 272(H) 70 - 199 mg/dL [facility] Lactate, POC 1.1 0.0 - 2.0 mmol/L [facility] O2Hb, Art POC 97.2(H) 90.0 - 95.0 % [facility] Carboxhgb fract 0.8 0.0 - 2.9 % [facility] Methemoglobin 0.8 0.0 - 1.9 % [facility] HHb, POC 1.1 0.0 - 5.0 % [facility] SO2 (nabila) arterial 99(H) 90 - 95 % [facility] Total CO2, Art POC 21(L) 22 - 32 mmol/L [facility] BE, art, POC -5.2(L) -2.0 - 2.0 mmol/L [facility] HCO3, Art POC 21 20 - 30 mmol/L [facility] Hct, POC 27.0(L) 38.9 - 50.3 % [facility] Total Hb, POC 9.0(L) 13.0 - 17.5 g/dL [facility] Blood specimen (specimen) 06/12/2020 12:41 PM CDT 06/12/2020 12:41 PM CDT us Hernan Cordero MD LAB POCT ORDERABLES - DEVIC E Final Result [facility] [address] [employer] [address] * (ABNORMAL) Protime-INR (06/12/2020 12:11 PM CDT) PT 16.8(H) 9.5 - 13.6 sec [facility] INR 1.5(H) 0.9 - 1.2 [facility] Comment: Interpretive data Oral anticoagulant therapeutic ranges: Venous thromboembolism prophylaxis or treatment: 2.0-3.0 CARDIOLOGY Standard range: 2.0-3.0 High-intensity range: 2.5-3.5 Refer to indication-specific guidelines for appropriate target ranges for prosthetic heart valve replacement. Current interpretive data was last revised on 2019. Blood specimen (specimen) 06/12/2020 12:11 PM CDT 06/12/2020 12:14 PM CDT Hernan Cordero MD LAB BLOOD ORDERABLES Final Result Performing Organization Address [facility] Co de Phone Number [facility] [address] [employer] [place], [place] [phone] * (ABNORMAL) Fibrinogen (06/12/2020 12:11 PM CDT) Pathologist [facility] Fibrinogen 441(H) 170 - 400 mg/dL [facility] Blood specimen (specimen) 06/12/2020 12:11 PM CDT 06/12/2020 12:14 PM CDT Hernan Cordero MD LAB BLOOD ORDERABLES Final Result Performing Organization Address [facility] Co de Phone Number [facility] [address] [facility] [place] [address] * (ABNORMAL) aPTT (06/12/2020 12:11 PM CDT) aPTT 73(H) 27 - 37 sec [facility] Comment: Interpretive Data Therapeutic heparin range: 60.0 - 94.0 seconds. Based on correlation with therapeutic heparin activity range of 0.3-0.7 Units/mL. Current interpretive data was last revised on 2020. Blood specimen (specimen) 06/12/2020 12:11 PM CDT 06/12/2020 12:14 PM CDT Hernan Cordero MD LAB BLOOD ORDERABLES Final Result Performing Organization Address [facility]/ZIP Co de Phone Number [facility] [address] [employer] [place], [place] [phone] * (ABNORMAL) CBC without differential (06/12/2020 12:11 PM CDT) WBC 8.4 3.8 - 9.9 K/cumm [facility] Hgb 9.0(L) 13.0 - 17.5 g/dL [facility] Hct 27.4(L) 38.9 - 50.3 % [facility] Plt 91(L) 150 - 400 K/cumm [facility] MPV 9.7 9.1 - 12.3 fL [facility] RBC 3.12(L) 4.30 - 5.80 M/cumm [facility] MCV 87.8 81.3 - 96.4 fL [facility] MCH 28.8 27.1 - 33.3 pg [facility] MCHC 32.8 32.3 - 35.7 g/dL [facility] RDW CV 15.1(H) 11.1 - 14.9 % [facility] RDW SD 48.3(H) 35.7 - 48.1 fL [facility] NRBC abs 0.00 0.00 - 0.01 K/cumm [facility] Blood specimen (specimen) 06/12/2020 12:11 PM CDT 06/12/2020 12:14 PM CDT Hernan Cordero MD LAB BLOOD ORDERABLES Final Result Performing Organization Address [facility]/ZIP Co de Phone Number [facility] [address] [employer] [place], [place] [phone] * (ABNORMAL) POC Blood Gas and Chemistries, Arterial - (06/12/2020 12:10 PM CDT) pH, Art POC 7.41 7.35 - 7.45 [facility] p[facility], Art POC 37 35 - 45 mmHg [facility] pO2, Art POC 231(H) 80 - 108 mmHg [facility] Na, POC 135 135 - 145 mmol/L [facility] K POC 6.1(H) 3.3 - 4.9 mmol/L [facility] Comment: Interpretive Data Unable to assess hemolysis. ??Invitro hemolysis causes falsely elevated potassium. Current Interpretive Data was last revised on 2019. Cl, POC 111(H) 97 - 110 mmol/L [facility] Ionized Ca, POC 4.11(L) 4.40 - 5.40 mg/dL [facility] Glucose, POC 160 70 - 199 mg/dL [facility] Lactate, POC 1.1 0.0 - 2.0 mmol/L [facility] O2Hb, Art POC 97.5(H) 90.0 - 95.0 % [facility] Carboxhgb fract 1.0 0.0 - 2.9 % [facility] Methemoglobin 0.5 0.0 - 1.9 % [facility] HHb, POC 1.0 0.0 - 5.0 % [facility] SO2 (nabila) arterial 99(H) 90 - 95 % [facility] Total CO2, Art POC 25 22 - 32 mmol/L [facility] BE, art, POC -0.8 -2.0 - 2.0 mmol/L [facility] HCO3, Art POC 24 20 - 30 mmol/L [facility] Hct, POC 28.0(L) 38.9 - 50.3 % [facility] Total Hb, POC 9.2(L) 13.0 - 17.5 g/dL [facility] Blood specimen (specimen) 06/12/2020 12:10 PM CDT 06/12/2020 12:10 PM CDT Hernan Cordero MD LAB POCT ORDERABLES - DEVIC E Final Result [facility] [address] Department [place] [address] * (ABNORMAL) POC Blood Gas and Chemistries, Arterial - (06/12/2020 11:32 AM CDT) pH, Art POC 7.34(L) 7.35 - 7.45 [facility] pCO2, Art POC 41 35 - 45 mmHg [facility] pO2, Art POC 295(H) 80 - 108 mmHg [facility] Na, POC 136 135 - 145 mmol/L [facility] K POC 6.2(C) 3.3 - 4.9 mmol/L [facility] Comment: Interpretive Data Unable to assess hemolysis. ??Invitro hemolysis causes falsely elevated potassium. Current Interpretive Data was last revised on 2019. Cl, POC 110 97 - 110 mmol/L [facility] Ionized Ca, POC 4.07(L) 4.40 - 5.40 mg/dL [facility] Glucose, POC 160 70 - 199 mg/dL [facility] Lactate, POC 0.9 0.0 - 2.0 mmol/L [facility] O2Hb, Art POC 97.1(H) 90.0 - 95.0 % [facility] Carboxhgb fract 0.7 0.0 - 2.9 % [facility] Methemoglobin 0.8 0.0 - 1.9 % [facility] HHb, POC 1.4 0.0 - 5.0 % [facility] SO2 (nabila) arterial 99(H) 90 - 95 % [facility] Total CO2, Art POC 23 22 - 32 mmol/L [facility] BE, art, POC -3.5(L) -2.0 - 2.0 mmol/L [facility] HCO3, Art POC 22 20 - 30 mmol/L [facility] Hct, POC 28.0(L) 38.9 - 50.3 % [facility] Total Hb, POC 9.3(L) 13.0 - 17.5 g/dL [facility] Blood specimen (specimen) 06/12/2020 11:32 AM CDT 06/12/2020 11:32 AM CDT Hernan Cordero MD LAB POCT ORDERABLES - DEVIC E Final Result Performing Organization Address City/[facility]/ZIP Co de Phone Number [facility] [address] [place] [address] * POC Activated Clotting Time, High Range (06/12/2020 11:13 AM CDT) [facility] ACT 106 87 - 138 sec [facility] Blood specimen (specimen) 06/12/2020 11:13 AM CDT 06/12/2020 11:13 AM CDT Hernan Cordero MD LAB BLOOD ORDERABLES Final Result Performing Organization Address [facility] de Phone Number [facility] [address] [place] [address] * (ABNORMAL) POC Blood Gas and Chemistries, Arterial - (06/12/2020 11:08 AM CDT) [facility] pH, Art POC 7.39 7.35 - 7.45 [facility] pCO2, Art POC 40 35 - 45 mmHg [facility] pO2, Art POC 263(H) 80 - 108 mmHg [facility] Na, POC 133(L) 135 - 145 mmol/L [facility] K POC 7.3(C) 3.3 - 4.9 mmol/L [facility] Comment: Interpretive Data Unable to assess hemolysis. ??Invitro hemolysis causes falsely elevated potassium. Current Interpretive Data was last revised on 2019. Cl, POC 107 97 - 110 mmol/L [facility] Ionized Ca, POC 4.47 4.40 - 5.40 mg/dL [facility] Glucose, POC 179 70 - 199 mg/dL [facility] Lactate, POC 1.0 0.0 - 2.0 mmol/L [facility] O2Hb, Art POC 97.9(H) 90.0 - 95.0 % [facility] Carboxhgb fract 0.0 0.0 - 2.9 % [facility] Methemoglobin 0.6 0.0 - 1.9 % [facility] HHb, POC 1.5 0.0 - 5.0 % [facility] SO2 (nabila) arterial 98(H) 90 - 95 % [facility] Total CO2, Art POC 25 22 - 32 mmol/L [facility] BE, art, POC -0.7 -2.0 - 2.0 mmol/L [facility] HCO3, Art POC 24 20 - 30 mmol/L [facility] Hct, POC 26.0(L) 38.9 - 50.3 % [facility] Total Hb, POC 8.8(L) 13.0 - 17.5 g/dL [facility] Blood specimen (specimen) 06/12/2020 11:08 AM CDT 06/12/2020 11:08 AM CDT Hernan Cordero MD LAB POCT ORDERABLES - DEVIC E Final Result Performing Organization Address City/[facility]/ZIP Co de Phone Number [facility] [address] Department [place] [address] * Transfuse RBC (06/12/2020 10:43 AM CDT) Blood specimen (specimen) Red Kamara MD BLOOD TRANSFUSION [facility] Final Result Performing Organization Address [facility] Co de Phone Number [facility] [address] Department [place] [address] * (ABNORMAL) POC Blood Gas and Chemistries, Venous - (06/12/2020 10:29 AM CDT) pH, Jame POC 7.34 7.32 - 7.45 [facility] pCO2, jame POC 49 40 - 50 mmHg [facility] pO2, jame POC 57(H) 35 - 42 mmHg [facility] Na, POC 134(L) 135 - 145 mmol/L [facility] K POC 6.2(C) 3.3 - 4.9 mmol/L [facility] Comment: Interpretive Data Unable to assess hemolysis. ??Invitro hemolysis causes falsely elevated potassium. Current Interpretive Data was last revised on 2019. Cl, POC 108 97 - 110 mmol/L [facility] Ionized Ca, POC 4.52 4.40 - 5.40 mg/dL [facility] Glucose, POC 136 70 - 199 mg/dL [facility] Lactate, POC 0.7 0.0 - 2.0 mmol/L [facility] O2Hb, Jame POC 86.3(L) 90.0 - 95.0 % [facility] Carboxhgb fract 1.1 0.0 - 2.9 % [facility] Methemoglobin 0.2 0.0 - 1.9 % [facility] HHb, POC 12.4(H) 0.0 - 5.0 % [facility] O2 Sat, Jame POC (Nabila) 87(H) 68 - 77 % [facility] Total CO2, jame POC 28 22 - 32 mmol/L [facility] Base excess, jame POC 0.0 mmol/L [facility] HCO3, Jame POC 25 20 - 30 mmol/L [facility] Hct, POC 23.0(L) 38.9 - 50.3 % [facility] Total Hb, POC 7.5(L) 13.0 - 17.5 g/dL [facility] Blood specimen (specimen) 06/12/2020 10:29 AM CDT 06/12/2020 10:29 AM CDT Hernan Cordero MD LAB POCT ORDERABLES - DEVIC E Final Result Performing Organization Address City/[facility]/ZIP Co de Phone Number [facility] [address] [employer] [place], [place] [id number] * Transfuse RBC (06/12/2020 10:28 AM CDT) Blood specimen (specimen) Red Kamara MD BLOOD TRANSFUSION ORDJulián JOHNSTON Final Result Performing Organization Address City/[facility]/ZIP Co de Phone Number [facility] [address] Department [place] [address] * (ABNORMAL) POC Blood Gas and Chemistries, Arterial - (06/12/2020 10:25 AM CDT) pH, Art POC 7.36 7.35 - 7.45 [facility] p[facility], Art POC 44 35 - 45 [facility] pO2, Art POC 417(H) 80 - 108 mmHg [facility] Na, POC 133(L) 135 - 145 mmol/L [facility] K POC 6.3(C) 3.3 - 4.9 mmol/L [facility] Comment: Interpretive Data Unable to assess hemolysis. ??Invitro hemolysis causes falsely elevated potassium. Current Interpretive Data was last revised on 2019. Cl, POC 110 97 - 110 mmol/L [facility] Ionized Ca, POC 4.40 4.40 - 5.40 mg/dL [facility] Glucose, POC 137 70 - 199 mg/dL [facility] Lactate, POC 0.7 0.0 - 2.0 mmol/L [facility] O2Hb, Art POC 98.8(H) 90.0 - 95.0 % [facility] Carboxhgb fract 1.1 0.0 - 2.9 % [facility] Methemoglobin 0.1 0.0 - 1.9 % [facility] HHb, POC 0.0 0.0 - 5.0 % [facility] SO2 (nabila) arterial 100(H) 90 - 95 % [facility] Total CO2, Art POC 26 22 - 32 mmol/L [facility] BE, art, POC -0.8 -2.0 - 2.0 mmol/L [facility] HCO3, Art POC 24 20 - 30 mmol/L [facility] Hct, POC 23.0(L) 38.9 - 50.3 % [facility] Total Hb, POC 7.7(L) 13.0 - 17.5 g/dL [facility] Blood specimen (specimen) 06/12/2020 10:25 AM CDT 06/12/2020 10:25 AM CDT Hernan Cordero MD LAB POCT ORDERABLES - DEVIC E Final Result Performing Organization Address [facility]/ZIP Co de Phone Number [facility] [address] [facility] [place] [address] * (ABNORMAL) POC Activated Clotting Time, High Range (06/12/2020 10:11 AM CDT) ACT 501(H) 87 - 138 sec [facility] Blood specimen (specimen) 06/12/2020 10:11 AM CDT 06/12/2020 10:11 AM CDT Hernan Cordero MD LAB BLOOD ORDERABLES Final Result Performing Organization Address [facility] Co de Phone Number [facility] [address] [place] [address] * (ABNORMAL) POC Activated Clotting Time, High Range (06/12/2020 9:31 AM CDT) [facility] ACT 457(H) 87 - 138 sec [facility] Blood specimen (specimen) 06/12/2020 9:31 AM CDT 06/12/2020 9:31 AM CDT Hernan Cordero MD LAB BLOOD ORDERABLES Final Result Performing Organization Address [facility]/ZIP Co de Phone Number [facility] [address] [place] [address] * (ABNORMAL) POC Blood Gas and Chemistries, Arterial - (06/12/2020 9:08 AM CDT) [facility] pH, Art POC 7.38 7.35 - 7.45 [facility] pCO2, Art POC 48(H) 35 - 45 mmHg [facility] pO2, Art POC 296(H) 80 - 108 mmHg [facility] Na, POC 136 135 - 145 mmol/L [facility] K POC 5.2(H) 3.3 - 4.9 mmol/L [facility] Comment: Interpretive Data Unable to assess hemolysis. ??Invitro hemolysis causes falsely elevated potassium. Current Interpretive Data was last revised on 2019. Cl, POC 111(H) 97 - 110 mmol/L [facility] Ionized Ca, POC 4.81 4.40 - 5.40 mg/dL [facility] Glucose, POC 124 70 - 199 mg/dL [facility] Lactate, POC 0.5 0.0 - 2.0 mmol/L [facility] O2Hb, Art POC 98.3(H) 90.0 - 95.0 % [facility] Carboxhgb fract 1.2 0.0 - 2.9 % [facility] Methemoglobin 0.4 0.0 - 1.9 % [facility] HHb, POC 0.1 0.0 - 5.0 % [facility] SO2 (nabila) arterial 100(H) 90 - 95 % [facility] Total CO2, Art POC 30 22 - 32 mmol/L [facility] BE, art, POC 2.5(H) -2.0 - 2.0 mmol/L [facility] HCO3, Art POC 27 20 - 30 mmol/L [facility] Hct, POC 24.0(L) 38.9 - 50.3 % [facility] Total Hb, POC 8.1(L) 13.0 - 17.5 g/dL [facility] Blood specimen (specimen) 06/12/2020 9:08 AM CDT 06/12/2020 9:08 AM CDT Hernan Cordero MD LAB POCT ORDERABLES - DEVIC E Final Result [facility] [address] [place] [address] * (ABNORMAL) POC Activated Clotting Time, High Range (06/12/2020 8:46 AM CDT) ACT 550(H) 87 - 138 sec [facility] Blood specimen (specimen) 06/12/2020 8:46 AM CDT 06/12/2020 8:46 AM CDT us Hernan Cordero MD LAB BLOOD ORDERABLES Final Result Performing Organization Address [facility] Co de Phone Number [facility] [address] [facility] [place] [address] * (ABNORMAL) POC Activated Clotting Time, High Range (06/12/2020 8:28 AM CDT) ACT 438(H) 87 - 138 sec [facility] Blood specimen (specimen) 06/12/2020 8:28 AM CDT 06/12/2020 8:28 AM CDT Hernan Cordero MD LAB BLOOD ORDERABLES Final Result Performing Organization Address [facility] de Phone Number [facility] [address] [facility] [place] [address] * POC Activated Clotting Time, High Range (06/12/2020 6:55 AM CDT) ACT 91 87 - 138 sec [facility] Blood specimen (specimen) 06/12/2020 6:55 AM CDT 06/12/2020 6:55 AM CDT Hernan Cordero MD LAB BLOOD ORDERABLES Final Result Performing Organization Address [facility] de Phone Number [facility] [address] [facility] [place] [address] * eGFR (06/12/2020 3:21 AM CDT) Pathologist [facility] eGFR 30 mL/min/1.7 3 m2 [facility] Comment: Interpretive Data Reference Interval Normal ?>/= [...] was last reviewed 2020 Blood specimen (specimen) 06/12/2020 3:21 AM CDT 06/12/2020 3:46 AM CDT Cy Krause MD LAB BLOOD ORDERABLES Final Res ult [facility] [address] Department [place] [address] * (ABNORMAL) Basic metabolic panel (06/12/2020 3:21 AM CDT) Sodium 139 135 - 145 mmol/L [facility] Potassium, pl 4.0 3.3 - 4.9 mmol/L [facility] Chloride 105 97 - 110 mmol/L [facility] CO2 23 22 - 32 mmol/L [facility] Anion gap 11 2 - 15 mmol/L [facility] BUN 26(H) 8 - 25 mg/dL [facility] Creatinine 2.20(H) 0.80 - 1.30 mg/dL [facility] Glucose 94 70 - 199 mg/dL [facility] Comment: Interpretive Data Fasting glucose >/= 126 [...] 2017. Calcium 8.7 8.5 - 10.3 mg/dL [facility] Blood specimen (specimen) 06/12/2020 3:21 AM CDT 06/12/2020 3:46 AM CDT Cy Krause MD LAB BLOOD ORDERABLES Final Res ult Performing Organization Address [facility] Co de Phone Number [facility] [address] [place] [address] * (ABNORMAL) aPTT (06/12/2020 3:21 AM CDT) aPTT 75(H) 27 - 37 sec [facility] Comment: Interpretive Data Therapeutic heparin range: 60.0 - 94.0 seconds. Based on correlation with therapeutic heparin activity range of 0.3-0.7 Units/mL. Current interpretive data was last revised on 2020. Blood specimen (specimen) 06/12/2020 3:21 AM CDT 06/12/2020 3:47 AM CDT Hernan Cordero MD LAB BLOOD ORDERABLES Final Result Performing Organization Address [facility] Co de Phone Number [facility] [address] Department [employer] [place], [place] [id number] * (ABNORMAL) CBC without differential (06/12/2020 3:21 AM CDT) WBC 5.1 3.8 - 9.9 K/cumm [facility] Hgb 8.2(L) 13.0 - 17.5 g/dL [facility] Hct 25.5(L) 38.9 - 50.3 % [facility] Plt 148(L) 150 - 400 K/cumm [facility] MPV 10.1 9.1 - 12.3 fL [facility] RBC 2.88(L) 4.30 - 5.80 M/cumm [facility] MCV 88.5 81.3 - 96.4 fL [facility] MCH 28.5 27.1 - 33.3 pg [facility] MCHC 32.2(L) 32.3 - 35.7 g/dL [facility] RDW CV 15.5(H) 11.1 - 14.9 % [facility] RDW SD 49.5(H) 35.7 - 48.1 fL [facility] NRBC abs 0.00 0.00 - 0.01 K/cumm [facility] Blood specimen (specimen) 06/12/2020 3:21 AM CDT 06/12/2020 3:46 AM CDT Narrative [facility] - 06/12/2020 3:56 AM CDT Until heparin is discontinued. us Jono LLANOS LAB BLOOD ORDERABLES Final R esult [facility] [address] Department [place] [address] * eGFR (06/11/2020 11:41 AM CDT) eGFR 31 mL/min/1.7 3 m2 [facility] Comment: Interpretive Data Reference Interval Normal ?>/= [...] was last reviewed 2020 Blood specimen (specimen) 06/11/2020 11:41 AM CDT 06/11/2020 12:54 PM CDT us Cy Krause MD LAB BLOOD ORDERABLES Final Res ult Performing Organization Address [facility]/ZIP Co de Phone Number [facility] [address] Department [place] [address] * Type and screen (06/11/2020 11:41 AM CDT) Pathologist [facility] ABO Rh A Positive [facility] Liana, indirect Negative [facility] Blood specimen (specimen) 06/11/2020 11:41 AM CDT 06/11/2020 12:59 PM CDT Narrative [facility] - 06/11/2020 1:29 PM CDT Has the patient had Daratumumab or Isatuximab in the past 6 months?->Unknown us Hernan Cordero MD LAB BLOOD BANK TEST ORDERAB LES Final Result Performing Organization Address [facility]/ZIP Co de Phone Number [facility] [address] [place] [address] * (ABNORMAL) Basic metabolic panel (06/11/2020 11:41 AM CDT) Pathologist [facility] Sodium 139 135 - 145 mmol/L [facility] Potassium, pl 4.9 3.3 - 4.9 mmol/L [facility] Chloride 105 97 - 110 mmol/L [facility] CO2 23 22 - 32 mmol/L [facility] Anion gap 11 2 - 15 mmol/L [facility] BUN 27(H) 8 - 25 mg/dL [facility] Creatinine 2.17(H) 0.80 - 1.30 mg/dL [facility] Glucose 81 70 - 199 mg/dL [facility] Comment: Interpretive Data Fasting glucose >/= 126 [...] interpretive data was last revised 2017. Calcium 9.0 8.5 - 10.3 mg/dL [facility] Blood specimen (specimen) 06/11/2020 11:41 AM CDT 06/11/2020 12:36 PM CDT us Cy Krause MD LAB BLOOD ORDERABLES Final Res ult Performing Organization Address [facility]/ZIP Co de Phone Number [facility] [address] [employer] [place], [place] [id number] * (ABNORMAL) aPTT (06/11/2020 11:41 AM CDT) aPTT 72(H) 27 - 37 sec [facility] Comment: Interpretive Data Therapeutic heparin range: 60.0 - 94.0 seconds. Based on correlation with therapeutic heparin activity range of 0.3-0.7 Units/mL. Current interpretive data was last revised on 2020. Blood specimen (specimen) 06/11/2020 11:41 AM CDT 06/11/2020 12:36 PM CDT us Hernan Cordero MD LAB BLOOD ORDERABLES Final Result Performing Organization Address City/[facility]/ZIP Co de Phone Number [facility] [address] Department [place] [address] * (ABNORMAL) CBC without differential (06/11/2020 11:41 AM CDT) [facility] WBC 5.0 3.8 - 9.9 K/cumm [facility] Hgb 8.3(L) 13.0 - 17.5 g/dL [facility] Hct 26.3(L) 38.9 - 50.3 % [facility] Plt 155 150 - 400 K/cumm [facility] MPV 10.1 9.1 - 12.3 fL [facility] RBC 2.91(L) 4.30 - 5.80 M/cumm [facility] MCV 90.4 81.3 - 96.4 fL [facility] MCH 28.5 27.1 - 33.3 pg [facility] MCHC 31.6(L) 32.3 - 35.7 g/dL [facility] RDW CV 15.6(H) 11.1 - 14.9 % [facility] RDW SD 51.1(H) 35.7 - 48.1 fL [facility] NRBC abs 0.00 0.00 - 0.01 K/cumm [facility] Blood specimen (specimen) 06/11/2020 11:41 AM CDT 06/11/2020 12:36 PM CDT Narrative [facility] - 06/11/2020 1:01 PM CDT Until heparin is discontinued. us Jono LLANOS LAB BLOOD ORDERABLES Final R esult [facility] [address] Department [place] [address] * (ABNORMAL) aPTT (06/10/2020 2:11 AM FILL TECHNICIAN) [facility] aPTT 93(H) 27 - 37 sec [facility] Comment: Interpretive Data Therapeutic heparin range: 60.0 - 94.0 seconds. Based on correlation with therapeutic heparin activity range of 0.3-0.7 Units/mL. Current interpretive data was last revised on 2020. Blood specimen (specimen) 06/10/2020 2:11 AM FILL TECHNICIAN 06/10/2020 2:24 AM FILL TECHNICIAN us Hernan Cordero MD LAB BLOOD ORDERABLES Final Result Performing Organization Address [facility] Co de Phone Number [facility] [address] [place] [address] * (ABNORMAL) Troponin T high-sensitivity 6-hour (06/10/2020 2:11 AM FILL TECHNICIAN) [facility] Trop T hs 60(H) <=22 ng/L [facility] Comment: Interpretive Data For further hscTnT resources including the diagnostic algorithm and an aid in interpretation, copy and paste this link: [email or web address].testcatalog.org/show/[email or web address] Current Interpretive Data last revised 2020. Trop T hs delta 9 ng/L [facility] Trop T hs interp Equivocal [facility] Blood specimen (specimen) 06/10/2020 2:11 AM FILL TECHNICIAN 06/10/2020 2:24 AM FILL TECHNICIAN us Yevgeniy LLANOS LAB BLOOD ORDERABLES Final Result Performing Organization Address [facility] Co de Phone Number [facility] [address] Department [place] [address] * (ABNORMAL) CBC without differential (06/10/2020 2:11 AM FILL TECHNICIAN) [facility] WBC 5.1 3.8 - 9.9 K/cumm [facility] Hgb 8.2(L) 13.0 - 17.5 g/dL [facility] Hct 25.6(L) 38.9 - 50.3 % [facility] Plt 149(L) 150 - 400 K/cumm [facility] MPV 9.8 9.1 - 12.3 fL [facility] RBC 2.92(L) 4.30 - 5.80 M/cumm [facility] MCV 87.7 81.3 - 96.4 fL [facility] MCH 28.1 27.1 - 33.3 pg [facility] MCHC 32.0(L) 32.3 - 35.7 g/dL [facility] RDW CV 15.7(H) 11.1 - 14.9 % [facility] RDW SD 50.3(H) 35.7 - 48.1 fL [facility] NRBC abs 0.00 0.00 - 0.01 K/cumm [facility] Blood specimen (specimen) 06/10/2020 2:11 AM FILL TECHNICIAN 06/10/2020 2:24 AM FILL TECHNICIAN Narrative [facility] - 06/10/2020 2:32 AM FILL TECHNICIAN Until heparin is discontinued. us Jono LLANOS LAB BLOOD ORDERABLES Final R esult Performing Organization Address [facility] Co de Phone Number [facility] [address] [place] [address] * (ABNORMAL) Ferritin (06/10/2020 2:11 AM FILL TECHNICIAN) Ferritin 545(H) 30 - 400 ng/mL [facility] Blood specimen (specimen) 06/10/2020 2:11 AM FILL TECHNICIAN 06/10/2020 2:24 AM FILL TECHNICIAN us Cy Krause MD LAB BLOOD ORDERABLES Final Res ult Performing Organization Address [facility]/ZIP Co de Phone Number [facility] [address] [employer] [address] * (ABNORMAL) Iron profile w/ IBC (06/10/2020 2:11 AM FILL TECHNICIAN) Iron 54 50 - 150 mcg/dL [facility] TIBC 207(L) 250 - 400 mcg/dL [facility] Transferrin saturation 26 20 - 50 % [facility] Blood specimen (specimen) 06/10/2020 2:11 AM FILL TECHNICIAN 06/10/2020 2:24 AM FILL TECHNICIAN Cy Krause MD LAB BLOOD ORDERABLES Final Res ult Performing Organization Address [facility] Co de Phone Number [facility] [address] [facility] [place] [address] * (ABNORMAL) Vitamin B12 (06/10/2020 2:11 AM FILL TECHNICIAN) Vitamin B12 214(L) 230 - 1,250 pg/mL [facility] Blood specimen (specimen) 06/10/2020 2:11 AM FILL TECHNICIAN 06/10/2020 2:24 AM FILL TECHNICIAN Cy Krause MD LAB BLOOD ORDERABLES Final Res ult Performing Organization Address [facility] de Phone Number [facility] [address] [facility] [place] [address] * (ABNORMAL) Lipid panel (06/10/2020 2:11 AM FILL TECHNICIAN) Pathologist [facility] Cholesterol 140 30 - 199 mg/dL [facility] Comment: Interpretive Data Ages < or = 19 years ??Acceptable: ? <170 mg/dL ??Borderline high: ??170-199 mg/dL ??High: ? >or= 200 mg/dL Ages > or = 20 years ??Desirable: ?<200 mg/dL ??Borderline high: ??200-239 mg/dL ??High: ? >or= 240 mg/dL Literature References: 1. Expert Panel on Integrated Guidelines for Cardiovascular Health and Risk Reduction in Children and Adolescents. Pediatrics 2011;128:S213 2. NCEP Expert Panel. Circulation 2004;110:227 Current Interpretive Data was last revised on 2017. Triglycerides 151(H) <=149 mg/dL [facility] Comment: Interpretive Data Ages < or = 9 years ??Acceptable: ? <75 mg/dL ??Borderline high: ??75-99 mg/dL ??High: ? >or= 100 mg/dL Ages 10 to 20 years ??Acceptable: ? <90 mg/dL ??Borderline high: ??90-129 mg/dL ??High: ? >or= 130 mg/dL Ages > or = 20 years ??Desirable: ?<150 mg/dL ??Borderline high: ??150-199 mg/dL ??High: ? 200-499 mg/dL ?Very high: ?? >or= 499 mg/dL Literature References: 1. Expert Panel on Integrated Guidelines for Cardiovascular Health and Risk Reduction in Children and Adolescents. Pediatrics 2011;128:S213 2. NCEP Expert Panel. Circulation 2004;110:227 Current Interpretive Data was last revised on 2017. HDL 36(L) >=40 mg/dL [facility] Comment: Interpretive Data Ages < or = 19 years ??Acceptable: ? >45 mg/dL ??Borderline low: ?? 40-45 mg/dL ??Low: ? <40 mg/dL Ages > or = 20 years ??Desirable: ?>or= 60 mg/dL ??Low: ? <40 mg/dL Literature References: 1. Expert Panel on Integrated Guidelines for Cardiovascular Health and Risk Reduction in Children and Adolescents. Pediatrics 2011;128:S213 2. NCEP Expert Panel. Circulation 2004;110:227 Current Interpretive Data was last revised on 2017. LDL, calculated 74 <=129 mg/dL [facility] Comment: Interpretive Data Ages < or = 19 years ??Acceptable: ? <110 mg/dL ??Borderline high: ??110-129 mg/dL ??High: ?>or= 130 mg/dL Ages > or = 20 years ??Optimal: ? <100 mg/dL ??Near optimal: ?100-129 mg/dL ??Borderline high: ?? 130-159 mg/dL ??High: ?>160 mg/dL Literature References: 1. Expert Panel on Integrated Guidelines for Cardiovascular Health and Risk Reduction in Children and Adolescents. Pediatrics 2011;128:S213 2. NCEP Expert Panel. Circulation 2004;110:227 Current Interpretive Data was last revised on 2017. Non-HDL Cholesterol 104 mg/dL [facility] Comment: Interpretive Data Ages < or = 19 years ??Acceptable: ?<120 mg/dL ??Borderline high: ??120-144 mg/dL ??High: ?>145 mg/dL Ages > or = 20 years ??When triglycerides are >200 mg/dL, Non-HDL cholesterol is a secondary target of ? therapy with treatment goals that are 30 mg/dL greater than the LDL cholesterol target. ? Literature References: 1. Expert Panel on Integrated Guidelines for Cardiovascular Health and Risk Reduction in Children and Adolescents. Pediatrics 2011;128:S213 2. NCEP Expert Panel. Circulation 2004;110:227 Current Interpretive Data was last revised on 2017. Chol/HDL ratio 4 [facility] Blood specimen (specimen) 06/10/2020 2:11 AM FILL TECHNICIAN 06/10/2020 2:24 AM FILL TECHNICIAN us Hernan Cordero MD LAB BLOOD ORDERABLES Final Result [facility] [address] [place] [address] * Hemoglobin A1c (06/10/2020 2:11 AM FILL TECHNICIAN) Hgb A1C 5.3 4.0 - 5.6 % [facility] Estimated Average Glucose 105 mg/dL [facility] Comment: The ADA recommends reporting an estimated Average Glucose (eAG) with all Hemoglobin A1c results using the equation derived from a study of 507 normal and diabetic adults. ??Minority populations were underrepresented and children were not included. ?? (Diabetes Care 31:1082-8261, 2008). ??The eAG is not equivalent to a fasting glucose. Blood specimen (specimen) 06/10/2020 2:11 AM FILL TECHNICIAN 06/10/2020 2:24 AM FILL TECHNICIAN us Hernan Cordero MD LAB BLOOD ORDERABLES Final Result Performing Organization Address [facility] de Phone Number [facility] [address] [place] [address] * (ABNORMAL) Troponin T high-sensitivity 4-hour (06/09/2020 11:59 PM FILL TECHNICIAN) Trop T hs 56(H) <=22 ng/L [facility] Comment: Interpretive Data For further hscTnT resources including the diagnostic algorithm and an aid in interpretation, copy and paste this link: https://nrl.testcatalog.org/show/hsTrop Current Interpretive Data last revised 2020. Trop T hs delta 5 ng/L [facility] Trop T hs interp Equivocal [facility] Blood specimen (specimen) 06/09/2020 11:59 PM FILL TECHNICIAN 06/10/2020 12:06 AM FILL TECHNICIAN Yevegniy LLANOS LAB BLOOD ORDERABLES Final Result Performing Organization Address [facility] de Phone Number [facility] [address] [place] [address] * Critical Care (06/09/2020 11:45 PM FILL TECHNICIAN) Narrative Yaneth Bull MD - 06/09/2020 11:45 PM FILL TECHNICIAN Yevgeniy Gonzalez PA ? 06/10/2020 10:10 AM Critical Care Performed by: Yevgeniy Gonzalez PA Authorized by: Yevgeniy Gonzalez PA CRITICAL CARE: ??Team: ??OTHER ??Shift: ??PM ??Level of Billing: ??Critical Care ??My time spent with this patient was 90 minutes: Critical Provider Statement: I have seen and examined the patient on this day of service. I have reviewed and confirmed the history, physical exam, laboratory and radiologic data as documented in the signed ICU note. I have reviewed and discussed my treatment plan with the ICU team and other medical/food consultant staff, making frequent assessments and decisions regarding this patient's complex medical care. Critical Care time was exclusive of time spent performing separately billed procedures, treating other patients, and teaching. This time was in addition to and separate from critical care provided by other practitioners in my group on this day of service. Critical Care was necessary to treat or prevent imminent or life-threatening deterioration of the following conditions: ? Acute pain/acute postoperative pain ?? Hypertensive crisis, [id number] mycardial infarction (Non-STEMI) and Demand ischemia/elevated troponins ?? Severe coagulopathy ??This time was spent by me doing the following: ? Serial bedside patient exams and Serial laboratory checks ?? Acute pain control ?? Initiation/active titration of vasoactive medications ?? Initiation/monitoring/titration of anticoagulants ?? I spent time documenting in the medical record, I spent time discussing the management of this critically ill patient with consultants and the medical staff and I spent time reviewing and interpreting data from bedside monitors, laboratory results, and imaging us Yevgeniy LLANOS IN CLINIC/BEDSIDE ORDERABLE S Final Result * US Vein Mapping Duplex Lower Extremity Bilateral (06/09/2020 10:30 PM FILL TECHNICIAN) Anatomical Region Laterality Modality Vascular Bilateral Ultrasound 06/11/2020 9:25 AM CDT Impressions 06/11/2020 9:25 AM CDT Patent great saphenous vein with the aforementioned measurements. Electronically signed by: Jeffrey Randolph M.D. Narrative 06/11/2020 9:25 AM CDT Vein Mapping LE DATE: 06/09/2020 6:05 AM EXAM: Vein Mapping bilateral LE INDICATION: Preoperative planning. COMPARISON: None FINDINGS: RIGHT GREAT SAPHENOUS VEIN: Saphenofemoral junction: 7.4mm Upper thigh: 4.8mm Mid thigh: 4.5mm Above the knee: 4.7mm At the knee: 4.2mm Below the knee: 4.4mm Upper calf: 2.1mm Mid calf: 2.9mm LEFT GREAT SAPHENOUS VEIN: Saphenofemoral junction: 12mm Upper thigh: 5.9mm Mid thigh: 5.4mm Above the knee: 6.6mm At the knee: 4.5mm Below the knee: 5.5mm Upper calf: 3.24mm Mid calf: 4.02mm INCIDENTAL FINDINGS: None Procedure Note Jeffrey Randolph MD - 06/11/2020 Vein Mapping LE DATE: 06/09/2020 6:05 AM EXAM: Vein Mapping bilateral LE INDICATION: Preoperative planning. COMPARISON: None FINDINGS: RIGHT GREAT SAPHENOUS VEIN: Saphenofemoral junction: 7.4mm Upper thigh: 4.8mm Mid thigh: 4.5mm Above the knee: 4.7mm At the knee: 4.2mm Below the knee: 4.4mm Upper calf: 2.1mm Mid calf: 2.9mm LEFT GREAT SAPHENOUS VEIN: Saphenofemoral junction: 12mm Upper thigh: 5.9mm Mid thigh: 5.4mm Above the knee: 6.6mm At the knee: 4.5mm Below the knee: 5.5mm Upper calf: 3.24mm Mid calf: 4.02mm INCIDENTAL FINDINGS: None IMPRESSION: Patent great saphenous vein with the aforementioned measurements. Electronically signed by: Jeffrey Randolph M.D. us Jono LLANOS IMG US PROCEDURES Final Resu lt * (ABNORMAL) Troponin T high-sensitivity 2-hour (06/09/2020 10:11 PM FILL TECHNICIAN) Trop T hs 57(H) <=22 ng/L [facility] Comment: Interpretive Data For further hscTnT resources including the diagnostic algorithm and an aid in interpretation, copy and paste this link: https://nrl.testcatalog.org/show/hsTrop Current Interpretive Data last revised 2020. Trop T hs delta 6 ng/L [facility] Trop T hs interp Equivocal [facility] Blood specimen (specimen) 06/09/2020 10:11 PM FILL TECHNICIAN 06/09/2020 10:15 PM FILL TECHNICIAN us Yevgeniy LLANOS LAB BLOOD ORDERABLES Final Result [facility] [address] Department [place], [place] [id number] 144-49 * US Carotids Duplex Bilateral (06/09/2020 10:00 PM FILL TECHNICIAN) Anatomical Region Laterality Modality Vascular Bilateral Ultrasound 06/11/2020 9:26 AM CDT Impressions 06/11/2020 9:26 AM CDT 1) ??Right carotid system demonstrates 0-49% diameter stenosis of the internal carotid artery. 2) ??Left carotid system demonstrates 0-49% diameter stenosis of the internal carotid artery. 3) ??Vertebral arteries demonstrate antegrade flow on the right, and antegrade flow on the left. 4) ??No comparision available. Electronically signed by: Jeffrey Randolph M.D. Narrative 06/11/2020 9:26 AM CDT DATE:06/09/2020 11:00 AM EXAM: Duplex imaging of the carotid arteries. INDICATION: Preop for CABG. COMPARISON STUDY DATE: None available IMAGE QUALITY: Good FINDINGS: RIGHT SIDE: B/P: Bedside Right: B-mode imaging demonstrates complex plaque formation within the right common carotid artery. Peak systolic velocity was 102 cm/sec. Complex plaque is noted in the right proximal internal carotid artery with a peak systolic velocity of 1:15 cm/ sec, end diastolic velocity of 19 and ICA/CCA ratio of 1. The right external carotid artery has a peak systolic velocity of 224 cm/sec. The right vertebral artery demonstrates edited flow. Incidental findings: None LEFT SIDE: B/P: 136 Left: B-mode imaging demonstrates complex plaque formation within the left common carotid artery. Peak systolic velocity is 140 cm/sec. Complex plaque is noted in the left proximal internal carotid artery with a peak systolic velocity of 128 cm/sec, end diastolic velocity of 31 cm/sec and ICA/CCA ratio of 0.9. The left external carotid artery has a peak systolic velocity of 137 cm/sec. The left vertebral artery demonstrates and agree flow. Incidental findings:None Procedure Note Jeffrey Randolph MD - 06/11/2020 DATE:06/09/2020 11:00 AM EXAM: Duplex imaging of the carotid arteries. INDICATION: Preop for CABG. COMPARISON STUDY DATE: None available IMAGE QUALITY: Good FINDINGS: RIGHT SIDE: B/P: Bedside Right: B-mode imaging demonstrates complex plaque formation within the right common carotid artery. Peak systolic velocity was 102 cm/sec. Complex plaque is noted in the right proximal internal carotid artery with a peak systolic velocity of 1:15 cm/ sec, end diastolic velocity of 19 and ICA/CCA ratio of 1. The right external carotid artery has a peak systolic velocity of 224 cm/sec. The right vertebral artery demonstrates edited flow. Incidental findings: None LEFT SIDE: B/P: 136 Left: B-mode imaging demonstrates complex plaque formation within the left common carotid artery. Peak systolic velocity is 140 cm/sec. Complex plaque is noted in the left proximal internal carotid artery with a peak systolic velocity of 128 cm/sec, end diastolic velocity of 31 cm/sec and ICA/CCA ratio of 0.9. The left external carotid artery has a peak systolic velocity of 137 cm/sec. The left vertebral artery demonstrates and agree flow. Incidental findings:None IMPRESSION: 1) Right carotid system demonstrates 0-49% diameter stenosis of the internal carotid artery. 2) Left carotid system demonstrates 0-49% diameter stenosis of the internal carotid artery. 3) Vertebral arteries demonstrate antegrade flow on the right, and antegrade flow on the left. 4) No comparision available. Electronically signed by: Jeffrey Randolph M.D. Hernan Cordero MD IM US PROCEDURES Final Res ult * Protein / creatinine ratio, urine, random (06/09/2020 9:48 PM FILL TECHNICIAN) Protein, ur, quant 14.1 mg/dL [facility] Comment: Interpretive Data No reference range established. Current interpretive data was last revised 2018. Creatinine Ur 98.6 mg/dL [facility] Comment: Interpretive Data No reference range established. Current interpretive data was last revised 2018. Protein/creatinin e ratio 143.0 0.0 - 180.0 mg/g CR [facility] Urine 06/09/2020 9:48 PM FILL TECHNICIAN 06/09/2020 9:58 PM FILL TECHNICIAN Narrative [facility] - 06/09/2020 10:28 PM FILL TECHNICIAN No reference range established for random urine total protein. ??No reference range established for random urine total protein. us Cy Krause MD LAB URINE ORDERABLES Final Res ult [facility] [address] [place] [address] * Urinalysis reflex to microscopic and culture Urine (06/09/2020 9:48 PM FILL TECHNICIAN) Color, ur Yellow Yellow [facility] Clarity, ur Clear Clear [facility] Specific gravity, ur 1.014 1.010 - 1.025 [facility] pH, urine 6.5 [facility] Protein, ur ql Trace Negative [facility] Glucose, ur ql Negative Negative [facility] Ketones, ur Negative Negative [facility] Bilirubin, ur Negative Negative [facility] Blood, ur Negative Negative [facility] Urobilinogen, ur <2.0 <2.0 mg/dL [facility] Nitrite, ur Negative Negative [facility] Leukocyte esterase, ur Negative Negative [facility] UA reflex comment Reflex conditions for microscopic UA and culture not met. [facility] Urine 06/09/2020 9:48 PM FILL TECHNICIAN 06/09/2020 10:03 PM FILL TECHNICIAN Narrative [facility] - 06/09/2020 10:06 PM FILL TECHNICIAN ?? Urine pH is affected by diet, medications, systemic acid-base disturbances, and renal tubular function. ??pH may affect urinary stone formation. ??For example, urine pH below 6.0 may help reduce the tendency for calcium phosphate stones and pH greater than 6.0 may reduce the tendency for uric acid stone formation. Source: [facility] [place]. Last revised 04-10-2017 Cy Krause MD LAB MICROBIOLOGY - GENERAL ORD ERABLES Final Result [facility] [address] [place] [address] * (ABNORMAL) Troponin T high-sensitivity series (baseline, 2hr, 4hr, 6hr) (06/09/2020 8:07 PM FILL TECHNICIAN) Trop T hs 51(H) <=22 ng/L [facility] Comment: Interpretive Data For further hscTnT resources including the diagnostic algorithm and an aid in interpretation, copy and paste this link: https://nrl.testcatalog.org/show/hsTrop Current Interpretive Data last revised 2020. Blood specimen (specimen) 06/09/2020 8:07 PM FILL TECHNICIAN 06/09/2020 8:28 PM FILL TECHNICIAN Yevgeniy LLANOS LAB BLOOD ORDERABLES Final Result Performing Organization Address [facility] Co de Phone Number [facility] [address] Department [place], [place] [phone] * (ABNORMAL) aPTT (06/09/2020 7:55 PM FILL TECHNICIAN) aPTT 74(H) 27 - 37 sec [facility] Comment: Interpretive Data Therapeutic heparin range: 60.0 - 94.0 seconds. Based on correlation with therapeutic heparin activity range of 0.3-0.7 Units/mL. Current interpretive data was last revised on 2020. Blood specimen (specimen) 06/09/2020 7:55 PM FILL TECHNICIAN 06/09/2020 8:22 PM FILL TECHNICIAN Hernan Cordero MD LAB BLOOD ORDERABLES Final Result Performing Organization Address [facility] Co de Phone Number [facility] [address] [place] [address] * ECG 12 lead (06/09/2020 7:33 PM FILL TECHNICIAN) 06/09/2020 7:33 PM FILL TECHNICIAN Narrative [facility] - 06/10/2020 8:49 AM FILL TECHNICIAN Vent Rate: 79 bpm RR Interval: 755 msec ID Interval: 152 msec QRS Duration: 82 msec QT Interval: 408 msec QTC Interval: 443 msec P-R-T [place]: 53 - 40 - 62 degrees [address]M [address]ER[address] DEPRESSION ABNORMAL ECG Electronically Signed By: Tavo Mares MD ??[facility] Card Hernan Cordero MD ECG ORDERABLES Final Resul t [facility] * XR Chest PA Lateral 2 View (06/09/2020 4:18 PM FILL TECHNICIAN) Anatomical Region Laterality Modality Body, Chest N/A Computed Radiogr aphy 06/09/2020 4:29 PM FILL TECHNICIAN Impressions 06/09/2020 4:29 PM FILL TECHNICIAN No focal consolidation or acute cardiopulmonary findings. Electronically signed by: Ky Steinberg M.D. Narrative 06/09/2020 4:29 PM FILL TECHNICIAN XR CHEST PA LATERAL 2 VIEWS: 06/09/2020 4:10 PM CLINICAL INDICATION: Pre-op CABG, assess lung parkinson. COMPARISON: None. FINDINGS: Mild enlarged cardiac silhouette. ??Trachea midline. ??Pulmonary vasculature normal. ??Mild calcification along the aortic arch. ??No focal consolidation, pleural effusion or pneumothorax. ??Small coil projects over the left upper quadrant. ??Multilevel thoracic spondylosis. ??No acute osseous abnormality. Procedure Note Ky Steinberg MD - 06/09/2020 XR CHEST PA LATERAL 2 VIEWS: 06/09/2020 4:10 PM CLINICAL INDICATION: Pre-op CABG, assess lung parkinson. COMPARISON: None. FINDINGS: Mild enlarged cardiac silhouette. Trachea midline. Pulmonary vasculature normal. Mild calcification along the aortic arch. No focal consolidation, pleural effusion or pneumothorax. Small coil projects over the left upper quadrant. Multilevel thoracic spondylosis. No acute osseous abnormality. IMPRESSION: No focal consolidation or acute cardiopulmonary findings. Electronically signed by: Ky Steinberg M.D. Hernan Cordero MD IMG XR PROCEDURES Final Res ult * (ABNORMAL) aPTT (06/09/2020 12:04 PM FILL TECHNICIAN) aPTT 82(H) 27 - 37 sec [facility] Comment: Interpretive Data Therapeutic heparin range: 60.0 - 94.0 seconds. Based on correlation with therapeutic heparin activity range of 0.3-0.7 Units/mL. Current interpretive data was last revised on 2020. Blood specimen (specimen) 06/09/2020 12:04 PM FILL TECHNICIAN 06/09/2020 12:38 PM FILL TECHNICIAN Hernan Cordero MD LAB BLOOD ORDERABLES Final Result Performing Organization Address [facility] de Phone Number [facility] [address] [place] [address] * Prepare RBC: 4 Units (06/09/2020 11:12 AM FILL TECHNICIAN) Pathologist [facility] Product code [id number] [facility] Unit Number [id number] [facility] Product Blood Type APOS [facility] Dispense Status PRESUMED TRANSFUSED [facility] Product code [id number] [facility] Unit Number [id number] [facility] Product Blood Type APOS [facility] Dispense Status RETURNED [facility] Product code [id number] [facility] Unit Number [id number] [facility] Product Blood Type APOS [facility] Dispense Status PRESUMED TRANSFUSED [facility] Product code [id number] [facility] Unit Number [id number] [facility] Product Blood Type APOS [facility] Dispense Status RETURNED [facility] Blood specimen (specimen) 06/09/2020 11:12 AM FILL TECHNICIAN Narrative [facility] - 06/15/2020 9:12 AM CDT Specify Procedure:->CABG Are special requirements needed? (all products are leukoreduced)->No Date required:-[id number] LRRBC # of [id number] Reasons:-Hold for procedure (specify procedure)} Hernan Cordero MD BLOOD BANK PRODUCT ORDERABL ES Final Result Performing Organization Address [facility] de Phone Number [facility] [address] [place] [address] * Check Sample (06/09/2020 6:20 AM FILL TECHNICIAN) Pathologist [facility] ABO Rh A Positive [facility] HCLL OTHER 06/09/2020 6:20 AM FILL TECHNICIAN 06/09/2020 11:33 AM FILL TECHNICIAN Hernan Cordero MD LAB BLOOD ORDERABLES Final Result Performing Organization Address [facility] Co de Phone Number [facility] [address] [place] [address] * (ABNORMAL) CBC without differential (06/09/2020 6:20 AM FILL TECHNICIAN) [facility] WBC 6.3 3.8 - 9.9 K/cumm [facility] Hgb 8.9(L) 13.0 - 17.5 g/dL [facility] Hct 27.7(L) 38.9 - 50.3 % [facility] Plt 150 150 - 400 K/cumm [facility] MPV 10.1 9.1 - 12.3 fL [facility] RBC 3.12(L) 4.30 - 5.80 M/cumm [facility] MCV 88.8 81.3 - 96.4 fL [facility] MCH 28.5 27.1 - 33.3 pg [facility] MCHC 32.1(L) 32.3 - 35.7 g/dL [facility] [facility] RDW CV 15.8(H) 11.1 - 14.9 % [facility] RDW SD 50.7(H) 35.7 - 48.1 fL [facility] NRBC abs 0.00 0.00 - 0.01 K/cumm [facility] Blood specimen (specimen) 06/09/2020 6:20 AM FILL TECHNICIAN 06/09/2020 6:40 AM FILL TECHNICIAN Narrative [facility] - 06/09/2020 6:47 AM FILL TECHNICIAN Until heparin is discontinued. Jono LLANOS LAB BLOOD ORDERABLES Final R esult Performing Organization Address [facility] Co de Phone Number [facility] [address] [place] [address] * (ABNORMAL) aPTT (06/09/2020 2:59 AM FILL TECHNICIAN) aPTT 116(H) 27 - 37 sec [facility] Comment: Interpretive Data Therapeutic heparin range: 60.0 - 94.0 seconds. Based on correlation with therapeutic heparin activity range of 0.3-0.7 Units/mL. Current interpretive data was last revised on 2020. Blood specimen (specimen) 06/09/2020 2:59 AM FILL TECHNICIAN 06/09/2020 3:05 AM FILL TECHNICIAN us Cy Krause MD LAB BLOOD ORDERABLES Final Res ult [facility] [address] Department [place] [address] * eGFR (06/08/2020 6:32 PM FILL TECHNICIAN) Pathologist [facility] eGFR 35 mL/min/1.7 3 m2 [facility] Comment: Interpretive Data Reference Interval Normal ?>/= [...] was last reviewed 2020 Blood specimen (specimen) 06/08/2020 6:32 PM FILL TECHNICIAN 06/08/2020 6:32 PM FILL TECHNICIAN Jono LLANOS LAB BLOOD ORDERABLES Final R esult Performing Organization Address [facility] Co de Phone Number [facility] [address] [facility] [place] [address] * (ABNORMAL) aPTT (06/08/2020 6:32 PM FILL TECHNICIAN) aPTT 59(H) 27 - 37 sec [facility] Comment: Interpretive Data Therapeutic heparin range: 60.0 - 94.0 seconds. Based on correlation with therapeutic heparin activity range of 0.3-0.7 Units/mL. Current interpretive data was last revised on 2020. Blood specimen (specimen) 06/08/2020 6:32 PM FILL TECHNICIAN 06/08/2020 6:32 PM FILL TECHNICIAN Narrative [facility] - 06/08/2020 7:22 PM FILL TECHNICIAN Unless preformed in the last 48 hours. Draw prior to heparin administration. Jono LLANOS LAB BLOOD ORDERABLES Final R esult Performing Organization Address [facility] de Phone Number [facility] [address] [facility] [place] [address] * Protime-INR (06/08/2020 6:32 PM FILL TECHNICIAN) PT 12.8 9.5 - 13.6 sec [facility] INR 1.2 0.9 - 1.2 [facility] Comment: Interpretive data Oral anticoagulant therapeutic ranges: Venous thromboembolism prophylaxis or treatment: 2.0-3.0 CARDIOLOGY Standard range: 2.0-3.0 High-intensity range: 2.5-3.5 Refer to indication-specific guidelines for appropriate target ranges for prosthetic heart valve replacement. Current interpretive data was last revised on 2019. Blood specimen (specimen) 06/08/2020 6:32 PM FILL TECHNICIAN 06/08/2020 6:32 PM FILL TECHNICIAN Narrative [facility] - 06/08/2020 7:22 PM FILL TECHNICIAN Unless preformed in the last 48 hours. Draw prior to heparin administration. us Jono LLANOS LAB BLOOD ORDERABLES Final R esult Performing Organization Address City/[facility]/ZIP Co de Phone Number [facility] [address] [place] [address] * (ABNORMAL) CBC without differential (06/08/2020 6:32 PM FILL TECHNICIAN) WBC 5.7 3.8 - 9.9 K/cumm [facility] Hgb 9.1(L) 13.0 - 17.5 g/dL [facility] Hct 28.7(L) 38.9 - 50.3 % [facility] Plt 166 150 - 400 K/cumm [facility] MPV 9.9 9.1 - 12.3 fL [facility] RBC 3.24(L) 4.30 - 5.80 M/cumm [facility] MCV 88.6 81.3 - 96.4 fL [facility] MCH 28.1 27.1 - 33.3 pg [facility] MCHC 31.7(L) 32.3 - 35.7 g/dL [facility] RDW CV 15.5(H) 11.1 - 14.9 % [facility] RDW SD 49.8(H) 35.7 - 48.1 fL [facility] NRBC abs 0.00 0.00 - 0.01 K/cumm [facility] Blood specimen (specimen) 06/08/2020 6:32 PM FILL TECHNICIAN 06/08/2020 6:32 PM FILL TECHNICIAN Narrative [facility] - 06/08/2020 6:40 PM FILL TECHNICIAN Unless preformed in the last 48 hours. Draw prior to heparin administration. Jono LLANOS LAB BLOOD ORDERABLES Final R esult Performing Organization Address City/[facility]/ZIP Co de Phone Number [facility] [address] [place] [address] * (ABNORMAL) CBC without differential (06/08/2020 6:32 PM FILL TECHNICIAN) WBC 5.6 3.8 - 9.9 K/cumm [facility] Hgb 9.1(L) 13.0 - 17.5 g/dL [facility] Hct 28.7(L) 38.9 - 50.3 % [facility] Plt 154 150 - 400 K/cumm [facility] MPV 9.5 9.1 - 12.3 fL [facility] RBC 3.25(L) 4.30 - 5.80 M/cumm [facility] MCV 88.3 81.3 - 96.4 fL [facility] MCH 28.0 27.1 - 33.3 pg [facility] MCHC 31.7(L) 32.3 - 35.7 g/dL [facility] RDW CV 15.6(H) 11.1 - 14.9 % [facility] RDW SD 50.4(H) 35.7 - 48.1 fL [facility] NRBC abs 0.00 0.00 - 0.01 K/cumm [facility] Blood specimen (specimen) 06/08/2020 6:32 PM FILL TECHNICIAN 06/08/2020 6:32 PM FILL TECHNICIAN us Jono LLANOS LAB BLOOD ORDERABLES Final R esult [facility] [address] Department [place] [address] * Magnesium (06/08/2020 6:32 PM FILL TECHNICIAN) Magnesium 1.6 1.4 - 2.5 mg/dL [facility] Blood specimen (specimen) 06/08/2020 6:32 PM FILL TECHNICIAN 06/08/2020 6:32 PM FILL TECHNICIAN Jono LLANOS LAB BLOOD ORDERABLES Final R esult [facility] [address] Department [place] [address] * (ABNORMAL) Comprehensive metabolic panel (06/08/2020 6:32 PM FILL TECHNICIAN) Sodium 143 135 - 145 mmol/L [facility] Potassium, pl 3.9 3.3 - 4.9 mmol/L [facility] Chloride 108 97 - 110 mmol/L [facility] CO2 25 22 - 32 mmol/L [facility] Anion gap 10 2 - 15 mmol/L [facility] BUN 23 8 - 25 mg/dL [facility] Creatinine 1.95(H) 0.80 - 1.30 mg/dL [facility] Glucose 101 70 - 199 mg/dL [facility] Comment: Interpretive Data Fasting glucose >/= 126 [...] interpretive data was last revised 2017. Calcium 8.3(L) 8.5 - 10.3 mg/dL [facility] Bilirubin, total 0.6 0.1 - 1.2 mg/dL [facility] Protein, pl 5.8(L) 6.5 - 8.5 g/dL [facility] Albumin 3.5 3.5 - 5.0 g/dL [facility] Alk phos 87 40 - 130 Units/L [facility] ALT 14 7 - 55 Units/L [facility] AST 14 10 - 50 Units/L [facility] Blood specimen (specimen) 06/08/2020 6:32 PM FILL TECHNICIAN 06/08/2020 6:32 PM FILL TECHNICIAN us Jono LLANOS LAB BLOOD ORDERABLES Final R esult [facility] [address] [place] [address] documented in this encounter Visit Diagnoses Not on filedocumented in this encounter Administered Medications Inactive Administered Medications - up to 3 most recent administrations Medication Order MAR Action Action Date Dose Rate Site acetaminophen (TYLENOL) tablet 1,000 mg 1,000 mg, oral, Every 6 hours scheduled, First dose on Fri06/12/20 at 1345, If able to swallow medications., Indications: PainIndications:Pain Given 06/15/2020 6:44 AM CDT 1,000 mg Given 06/14/2020 11:59 PM CDT 1,000 mg Given 06/14/2020 6:36 PM CDT 1,000 mg aspirin tablet 325 mg 325 mg, oral, Daily, First dose on Fri06/12/20 at 1345, If able to swallow medications. Within 6h of arrival to CVR if chest tube output allows. Given 06/15/2020 9:50 AM CDT 325 mg Given 06/14/2020 8:32 AM CDT 325 mg Given 06/13/2020 8:22 AM CDT 325 mg atorvastatin (LIPITOR) tablet 40 mg 40 mg, oral, Nightly, First dose on Fri06/13/20 at 2100 Given 06/14/2020 9:11 PM CDT 40 mg Given 06/13/2020 8:53 PM CDT 40 mg docusate sodium (COLACE) capsule 100 mg 100 mg, oral, Daily, First dose on Fri06/12/20 at 1345, If able to swallow medications. Hold for diarrhea. , Indications: constipationIndications:constipation Given 06/14/2020 8:33 AM CDT 100 mg Given 06/13/2020 8:22 AM CDT 100 mg gabapentin (NEURONTIN) capsule 300 mg 300 mg, oral, Nightly, First dose on Fri06/13/20 at 2100 Given 06/14/2020 9:11 PM CDT 300 mg Given 06/13/2020 8:53 PM CDT 300 mg heparin 5,000 unit/mL injection 5,000 Units 5,000 Units, subcutaneous, Every 8 hours scheduled, First dose on Fri06/13/20 at 0600, Indications: VTE ProphylaxisIndications:VTE Prophylaxis Given 06/15/2020 6:44 AM CDT 5,000 Units Left Upper Abdomen Given 06/14/2020 9:12 PM CDT 5,000 Units L eft Upper Abdomen Given 06/14/2020 1:28 PM CDT 5,000 Units R ight Lower Abdomen HYDROmorphone (DILAUDID) injection 0.2 mg 0.2 mg, intravenous, Administer over 2 Minutes, Every 4 hours PRN, breakthrough pain, Starting on Fri06/13/20 at 1545 Given 06/13/2020 10:26 PM CDT 0.2 m g Given 06/13/2020 5:48 PM CDT 0.2 mg labetaloL (NORMODYNE,TRANDATE) tablet 200 mg 200 mg, oral, 2 times daily, First dose (after last modification) on Fri06/13/20 at 2100 Given 06/15/2020 9:50 AM CDT 200 mg Given 06/14/2020 9:12 PM CDT 200 mg Given 06/14/2020 8:32 AM CDT 200 mg ondansetron (ZOFRAN) injection 4 mg 4 mg, intravenous, Administer over 2 Minutes, Every 6 hours PRN, nausea, vomiting, Starting on Fri06/12/20 at 1303, Administer no sooner than 6 hours after last dose. , Indications: Nausea and VomitingIndications:Nausea and Vomiting Given 06/13/2020 8:20 AM CDT 4 mg Given 06/12/2020 11:15 PM CDT 4 mg oxyCODONE (ROXICODONE) tablet 5 mg 5 mg, oral, Every 3 hours PRN, 1st line for pain, Starting on Fri06/12/20 at 1700, Indications: PainIndications:Pain Given 06/15/2020 3:06 PM CDT 5 mg Given 06/15/2020 6:44 AM CDT 5 mg Given 06/14/2020 11:59 PM CDT 5 mg papaverine 120 mg in Lactated Ringer's (LR) 26 mL solution As needed, Starting on Fri06/12/20 at 0752, Intra-Op Given 06/12/2020 7:52 AM CDT 52 mL Surgical Site papaverine 120 mg, heparin 10,000 Units in Lactated Ringer's (LR) 500 mL irrigation solution As needed, Starting on Fri06/12/20 at 0751, Intra-Op Given 06/12/2020 7:51 AM CDT 500 mL Surgical Site senna (SENOKOT) tablet 1 tablet 1 tablet, oral, 2 times daily, First dose on Fri06/13/20 at 0900, If able to swallow medications. Hold for diarrhea., Indications: constipationIndications:constip ation Given 06/14/2020 9:12 PM CDT 1 tablet Given 06/14/2020 8:32 AM CDT 1 tablet Given 06/13/2020 8:53 PM CDT 1 tablet sodium chloride (OCEAN) 0.65 % nasal spray 1 spray 1 spray, each nostril, Every 2 hours PRN, rhinitis, Starting on Fri06/14/20 at 2039 Given 06/14/2020 9:12 PM CDT 1 spray sodium chloride 0.9% flush 0.5-20 mL 0.5-20 mL, intra-catheter, Every 8 hours scheduled, First dose on Fri06/12/20 at 1400, Flush volume based on line type and size. , Indications: FlushingIndications:Flushing Given 06/14/2020 9:12 PM CDT 10 mL Given 06/14/2020 1:28 PM CDT 10 mL Given 06/14/2020 6:46 AM CDT 10 mL documented in this encounter Discontinued Medications Medication Sig Discontinue Reason Start Date End Da te apixaban (ELIQUIS) 5 mg tablet Take 5 mg by mouth 2 (two) times a day Alternate therapy 08/19/2018 06/08/2020 calcium carbonate (Calcium 500) 1,250 MG (500 mg of elemental calcium) tablet Take by mouth 09/12/2017 06/08/2020 atorvastatin (LIPITOR) 20 mg tablet Take 20 mg by mouth daily Reorder 02/11/2020 06/15/2020 traMADoL (ULTRAM) 50 mg tablet Take 50 mg by mouth 2 (two) times a day as needed Stop Taking at Discharge 06/17/2018 06/15/2020 documented as of this encounter Historical Medications * This list may reflect changes made after this encounter. apixaban (ELIQUIS) 5 mg tablet Take 1 tablet (5 mg total) by mouth 2 (two) times a day added in this encounter Active and Recently Administered Medications Times are shown in CDT. Scheduled Medication Order 06/13/2020 06/14/2020 06/15/2020 acetaminophen (TYLENOL) tablet 1,000 mg(Linked Group 1) 1,000 mg, oral, Every 6 hours scheduled, First dose on Fri06/12/20 at 1345, If able to swallow medications., Indications: Pain 0514 (Given - Provider: Maribel Mcclain RN)1213 (Given - Provider: Wen Faulkner RN)1758 (Given - Provider: Kellee Storey, [place]) 0107 (Given - Provider: Gertrudis Bhatt, [place])0646 (Given - Provider: Gertrudis Bhatt RN)1147 (Given - Provider: Maliha Tamez, [place])1836 (Given - Provider: Maliha Tamez, [place])2359 (Given - Provider: Umm Polk RN) 0644 (Given - Provider: Umm Polk RN)1222 (Not Given - Provider: Maliha Tamez RN - Reason: Patient/family refused) aspirin tablet 325 mg(Linked Group 2) 325 mg, oral, Daily, First dose on Fri06/12/20 at 1345, If able to swallow medications. Within 6h of arrival to CVR if chest tube output allows. 0822 (Given - Provider: Wen Faulkner RN) 0832 (Given - Provider: Maliha Tamez RN) 0950 (Given - Provider: Maliha Tamez RN) atorvastatin (LIPITOR) tablet 40 mg 40 mg, oral, Nightly, First dose on Fri06/13/20 at 2100 2053 (Given - Provider: Gertrudis Bhatt, [place]) 211 (Given - Provider: Umm Polk RN) ceFAZolin (ANCEF) 2,000 mg/20 mL in sterile water (premix) 2,000 mg (COMPLETED) 2,000 mg, intravenous, at 400 mL/hr, Administer over 3 Minutes, Every 12 hours, First dose (after last modification) on Fri06/12/20 at 2000, For 5 doses, Start 8 hours after last miguel-operative dose., Indications: Prophylaxis, Surgical 08 (New Bag - Provider: Wen Faulkner RN)2020 (New Bag - Provider: Gertrudis Bhatt, [place]) 101 (New Bag - Provider: Maliha Tamez, RN)1950 (New Bag - Provider: Umm Polk, [place]) docusate sodium (COLACE) capsule 100 mg(Linked Group 3) 100 mg, oral, Daily, First dose on Fri06/12/20 at 1345, If able to swallow medications. Hold for diarrhea. , Indications: constipation 08 (Given - Provider: Wen Faulkner RN) 0833 (Given - Provider: Maliha Tamez, RN) 0900 (Not Given - Provider: Maliha Tamez, [place] - Reason: Patient/family refused) furosemide (LASIX) 10 mg/mL injection 40 mg (COMPLETED) 40 mg, intravenous, Once, On Fri06/13/20 at 0745, For 1 dose, For IV push: administer doses < 160 mg at a rate of 20 -40 mg/min. Doses >/= 160 mg should be administered no faster than 4 mg/min. Room temperature only 0729 (Given - Provider: Wen Faulkner RN) gabapentin (NEURONTIN) capsule 300 mg 300 mg, oral, Nightly, First dose on Fri06/13/20 at 2100 2052 (Given - Provider: Gertrudis Bhatt, [place]) 2110 (Given - Provider: Umm Polk, [place]) heparin 5,000 unit/mL injection 5,000 Units 5,000 Units, subcutaneous, Every 8 hours scheduled, First dose on Fri06/13/20 at 0600, Indications: VTE Prophylaxis 0515 (Given - Provider: Maribel Mcclain RN)1452 (Given - Provider: Wen Faulkner RN)2053 (Given - Provider: Gertrudis Bhatt, [place]) 0645 (Given - Provider: Gertrudis Bhatt, [place])1328 (Given - Provider: Maliha Tamez, [place])2111 (Given - Provider: Umm Polk RN) 0644 (Given - Provider: Umm Polk RN)1504 (Not Given - Provider: Maliha Tamez RN - Reason: Order Discontinued) insulin lispro (HumaLOG, ADMELOG) injection 1-5 Units (CANCELED) 1-5 Units, subcutaneous, 3 times daily with meals, First dose on Fri06/13/20 at 1800, Blood Sugar Mid Dose meal time - PO patients 139 or less No insulin 140 - 175 1 unit 176 - 200 2 unit 201 - 250 3 units 251 - 299 5 units Greater than 299 Call MD for hyperglycemia management instructions Do NOT hold for NPO status., Indications: Diabetes Mellitus 1757 (Given - Provider: Kellee Storey RN) 0800 (Not Given - Provider: Maliha Tamez RN - Reason: Order parameters not met)1215 (Not Given - Provider: Maliha Tamez RN - Reason: Order parameters not met) labetaloL (NORMODYNE,TRANDATE) tablet 200 mg (CANCELED) 200 mg, oral, 2 times daily, First dose on Fri06/13/20 at 0730 0728 (Given - Provider: Wen Faulkner RN) labetaloL (NORMODYNE,TRANDATE) tablet 200 mg 200 mg, oral, 2 times daily, First dose (after last modification) on Fri06/13/20 at 2100 2053 (Given - Provider: Gertrudis Bhatt RN) 0832 (Given - Provider: Maliha Tamez, [place])2112 (Given - Provider: Umm Polk RN) 0950 (Given - Provider: Maliha Tamez RN) nitroglycerin (NITRO-BID) 2 % ointment 2 inch (COMPLETED) 2 inch, topical, Administer over 7 Hours, Once, On Fri06/13/20 at 0645, For 1 dose, Apply to chest or back with the applicator or dose-measuring paper. Wear gloves to apply to affected area. Wipe clean prior to reapplying next dose. May cover with a non-occlusive dressing., Apply to affected area: chest 0516 (Medication Applied - Provider: Maribel Mcclain RN) senna (SENOKOT) tablet 1 tablet(Linked Group 4) 1 tablet, oral, 2 times daily, First dose on Fri06/13/20 at 0900, If able to swallow medications. Hold for diarrhea., Indications: constipation 0822 (Given - Provider: Wen Faulkner RN)2052 (Given - Provider: Gertrudis Bhatt, [place]) 0832 (Given - Provider: Maliha Tamez, [place])211 (Given - Provider: Umm Polk RN) 0900 (Not Given - Provider: Maliha Tamez RN - Reason: Patient/family refused) sodium chloride 0.9% flush 0.5-20 mL 0.5-20 mL, intra-catheter, Every 8 hours scheduled, First dose on Fri06/12/20 at 1400, Flush volume based on line type and size. , Indications: Flushing 0519 (Not Given - Provider: Maribel Mcclain RN - Reason: Order parameters not met)1452 (Given - Provider: Wen Faulkner RN)2053 (Given - Provider: Gertrudis Bhatt RN) 0646 (Given - Provider: Gertrudis Bhatt, [place])1328 (Given - Provider: Maliha Tamez, [place])211 (Given - Provider: Umm Polk RN) 0600 (Not Given - Provider: Maliha Tamez RN - Reason: Other - Comment: nite shift)1504 (Not Given - Provider: Maliha Tamez RN - Reason: Order Discontinued) vancomycin 1500 mg/250 mL in sodium chloride 0.9% (premix) 1,500 mg (COMPLETED) 1,500 mg, intravenous, Administer over 90 Minutes, Every 24 hours, First dose (after last modification) on Fri06/13/20 at 0800, For 1 dose, Start 12 hours after pre-operative dose., Indications: Prophylaxis, Surgical 08 (New Bag - Provider: Wen Faulkner RN) Continuous Medication Order 06/13/2020 06/14/2020 06/15/2020 insulin regular (HumuLIN R, NovoLIN R) 100 Units in sodium chloride 0.9% 100 mL (1 Units/mL) infusion (CANCELED) 0-30 Units/hr (0-30 mL/hr), 1 units/mL, intravenous, Titrated, Starting on Fri06/12/20 at 1345, Until Fri06/13/20 at 1534, Indications: Hyperglycemia, NON-WEIGHT BASED DOSING BLOOD GLUCOSE (BG) Less than 60 mg/dL Give dextrose as ordered in protocol STOP INSULIN RECHECK BLOOD GLUCOSE IN 30 MINUTES If blood glucose is greater than or equal to 75 mg/dL, restart insulin infusion at 50% of previous rate. If blood glucose is less than 75 mg/dL, call /ROSE 60 - 74 mg/dL: If previous BG was greater than 90 mg/dL, give 25 mL D50W IV Push (Glucose is dropping FAST) STOP INSULIN RECHECK BLOOD GLUCOSE IN 30 MINUTES If blood glucose is greater than or equal to 75 mg/dL, restart insulin infusion at 50% of previous rate. 75 - 99 mg/dL If higher than last BG, maintain same rate If lower than last BG by less than 10 mg/dL OR equal to last BG, decrease rate by 0.5 units/hr. If lower than last BG by more than 10 mg/dL, decrease rate by 50%. 100 - 150 mg/dL If higher than last BG by more than 10 mg/dL, increase rate by 0.5 units/hr. AT [facility] If within 10 mg/dL of the last BG continue current rate. If lower than last BG by more than 10 mg/dL, decrease rate by 0.5 units/hr. 151 - 180 mg/dL If higher than last BG by more than 20 mg/dL, increase rate by 1 units/hr If within 20 mg/dL of last BG, increase rate by 0.5 unit/hr If lower than last BG by 20-50 mg/dL, continue same rate If lower than last BG by more than 50 mg/dL, decrease rate by 50% (Glucose is dropping FAST) 181 - 240 mg/dL If higher than last BG OR lower than last BG by less than 50 mg/dL, bolus with 2 units IV and increase rate by 2 units/hr RECHECK BLOOD GLUCOSE IN 30 MINUTES. If BG has not decreased after 3 consecutive increases in insulin infusion, then bolus with 4 units and double the infusion rate. If lower than last BG by more than 50 mg/dL, continue same rate. 241 - 300 mg/dL If higher than last BG OR lower than last BG by less than 80 mg/dL, bolus per with 6 units and DOUBLE infusion rate up to maximum 30 units/hr RECHECK BLOOD GLUCOSE IN 30 MINUTES. If lower than last BG by more than 80 mg/dL, continue same rate. 301 - 360 mg/dL If higher than last BG OR lower than last BG by less than 80 mg/dL, bolus per with 10 units and DOUBLE infusion rate up to maximum 30 units/hr RECHECK BLOOD GLUCOSE IN 30 MINUTES. If lower than last BG by more than 80 mg/dL, continue same rate. Greater than 360 mg/dL If higher than last BG OR lower than last BG by less than 80 mg/dL, bolus per with 14 units and DOUBLE infusion rate up to maximum 30 units/hr RECHECK BLOOD GLUCOSE IN 30 MINUTES. If lower than last BG by more than 80 mg/dL, continue same rate. If blood glucose is more than 300 mg/dL for 4 consecutive readings, call MD/GYN for additional IV bolus orders. When new IV tubing is used, completely prime the tubing. Once primed, waste an additional 20 ml of insulin infusion using the IV pump prior to connecting to patient., Routine 0146 (Rate/Dose Change - Provider: Rabia Torres RN)0800 (Rate/Dose Change - Provider: Wen Faulkner RN) niCARdipine (CARDENE) 50,000 mcg in sodium chloride 0.9% 100 mL (500 mcg/mL) infusion (CANCELED) 0-2.5 mcg/kg/min ? 96.4 kg (0-28.92 mL/hr), 500 mcg/mL, intravenous, Titrated, Starting on Fri06/13/20 at 0245, Until Fri06/13/20 at 1534, Initial rate: 0.5 mcg/kg/min, Titrate: Up/Down, Titrate by: 0.5 mcg/kg/min, Every: 10 minutes, Goal: SBP, SBP Goal: 130-140 mmHg, Discontinue when drip is off and stable at goal. Central line only, Routine 0200 (Rate/Dose Verify - Provider: Maribel Mcclain, [place])0240 (New Bag - Provider: Maribel Mcclain RN)0400 (Rate/Dose Verify - Provider: Maribel Mcclain RN)0600 (Rate/Dose Verify - Provider: Maribel Mcclain RN)0730 (New Bag - Provider: Wen Faulkner RN)0830 (Rate/Dose Change - Provider: Wen Faulkner RN)0845 (Rate/Dose Change - Provider: Wen Faulkner RN)0900 (Rate/Dose Change - Provider: Wen Faulkner RN)0905 (Stopped - Provider: Wen Faulkner RN)1030 (Canceled Entry - Provider: Wen Faulkner RN)1045 (Restarted - Provider: Wen Faulkner RN)1100 (Rate/Dose Verify - Provider: Wen Faulkner RN)1130 (Stopped - Provider: Wen Faulkner RN) PRN Medication Order 06/13/2020 06/14/2020 06/15/2020 bisacodyL (DULCOLAX) suppository 10 mg 10 mg, rectal, Daily PRN, constipation, Starting on Fri06/13/20 at 0000, Hold for diarrhea, Indications: constipation hydrALAZINE (APRESOLINE) injection 20 mg (CANCELED) 20 mg, intravenous, Administer over 2 Minutes, Every 2 hours PRN, high blood pressure, Starting on Fri06/13/20 at 0246, For 3 doses, Give for SBP > 150, Indications: hypertension 0255 (Given - Provider: Maribel Mcclain RN)0515 (Given - Provider: Maribel Mcclain RN) HYDROmorphone (DILAUDID) injection 0.2 mg (CANCELED) 0.2 mg, intravenous, Administer over 2 Minutes, Every 2 hours PRN, breakthrough pain, Starting on Fri06/12/20 at 1700, For 23 hours 0200 (Given - Provider: Maribel Mcclain RN)0400 (Given - Provider: Maribel Mcclain RN) HYDROmorphone (DILAUDID) injection 0.2 mg 0.2 mg, intravenous, Administer over 2 Minutes, Every 4 hours PRN, breakthrough pain, Starting on Fri06/13/20 at 1545 1748 (Given - Provider: Kellee Storey RN)2226 (Given - Provider: Gertrudis Bhatt RN) ondansetron (ZOFRAN) injection 4 mg 4 mg, intravenous, Administer over 2 Minutes, Every 6 hours PRN, nausea, vomiting, Starting on Fri06/12/20 at 1303, Administer no sooner than 6 hours after last dose. , Indications: Nausea and Vomiting 0820 (Given - Provider: Wen Faulkner, [place]) oxyCODONE (ROXICODONE) tablet 5 mg 5 mg, oral, Every 3 hours PRN, 1st line for pain, Starting on Fri06/12/20 at 1700, Indications: Pain 0205 (Given - Provider: Maribel Mcclain RN)0822 (Given - Provider: Wen Faulkner RN)1213 (Given - Provider: Wen Faulkner, [place])1552 (Given - Provider: Kellee Storey RN)2053 (Given - Provider: Gertrudis Bhatt, [place]) 0107 (Given - Provider: Gertrudis Bhatt, [place])0647 (Given - Provider: Gertrudis Bhatt, [place])1018 (Given - Provider: Maliha Tamez, [place])1612 (Given - Provider: Maliha Tamez, [place])2359 (Given - Provider: Umm Polk, [place]) 0644 (Given - Provider: Umm Polk, [place])1506 (Given - Provider: Maliha Tamez, [place]) polyethylene glycol (MIRALAX) packet 17 g 17 g, oral, Daily PRN, constipation, Starting on Fri06/12/20 at 1303, Hold for diarrhea, Indications: constipation sodium chloride (OCEAN) 0.65 % nasal spray 1 spray 1 spray, each nostril, Every 2 hours PRN, rhinitis, Starting on Fri06/14/20 at 2039 2112 (Given - Provider: Umm Polk, [place]) sodium chloride 0.9% flush 0.5-20 mL 0.5-20 mL, intra-catheter, As needed, line care, Starting on Fri06/12/20 at 1303, Flush volume based on line type and size. Flush before and after each use. , Indications: Flushing Linked Groups Order Group 1: acetaminophen (TYLENOL) tablet 1,000 mgJump to med 1,000 mg, oral, Every 6 hours scheduled, First dose on Fri06/12/20 at 1345, If able to swallow medications., Indications: Pain Or acetaminophen (TYLENOL) 32 mg/mL oral solution 1,000 mg (CANCELED) 1,000 mg, feeding tube, Every 6 hours scheduled, First dose on Fri06/12/20 at 1345, If taking meds per tube., Indications: Pain Or acetaminophen (TYLENOL) suppository 650 mg (CANCELED) 650 mg, rectal, Every 6 hours scheduled, First dose on Fri06/12/20 at 1345, If unable to tolerate enteral administration., Indications: Pain Group 2: aspirin tablet 325 mgJump to med 325 mg, oral, Daily, First dose on Fri06/12/20 at 1345, If able to swallow medications. Within 6h of arrival to CVR if chest tube output allows. Or aspirin tablet 325 mg (CANCELED) 325 mg, feeding tube, Daily, First dose on Fri06/12/20 at 1345, If able to receive medications per tube. Within 6h of arrival to CVR if chest tube output allows. Or aspirin suppository 300 mg (CANCELED) 300 mg, rectal, Daily, First dose on Fri06/12/20 at 1345, If unable to tolerate enteral administration. Within 6h of arrival to CVR if chest tube output allows. Group 3: docusate sodium (COLACE) capsule 100 mgJump to med 100 mg, oral, Daily, First dose on Fri06/12/20 at 1345, If able to swallow medications. Hold for diarrhea. , Indications: constipation Or docusate (COLACE) 10 mg/mL oral liquid 100 mg (CANCELED) 100 mg, feeding tube, Daily, First dose on Fri06/12/20 at 1345, If taking meds per tube. Hold for diarrhea., Indications: constipation Group 4: senna (SENOKOT) tablet 1 tabletJump to med 1 tablet, oral, 2 times daily, First dose on Fri06/13/20 at 0900, If able to swallow medications. Hold for diarrhea., Indications: constipation Or senna 1.76 mg/mL syrup 8.8 mg (CANCELED) 8.8 mg, feeding tube, 2 times daily, First dose on Fri06/13/20 at 0900, If taking meds per tube. Hold for diarrhea., Indications: constipation documented in this encounter Orders Medications Ordered That Vignesh ht Not Have Been Administered Count Last Ordered Date First Ordered Date sodium chloride (OCEAN) 0.65 % nasal spray 1 spray 1 06/14/2020 atorvastatin (LIPITOR) tablet 40 mg 1 06/13 dextrose (D10W) 10% bolus 250 mL 1 06/14/19 dextrose (GLUTOSE) 40 % gel 15 g 1 06/14/19 21 furosemide (LASIX) 10 mg/mL injection 40 mg 1 06/13/2020 gabapentin (NEURONTIN) capsule 300 mg 3 06/08/2020 glucagon injection 1 mg 1 06/13/2020 hydrALAZINE (APRESOLINE) injection 20 mg 1 06/13/2020 HYDROmorphone (DILAUDID) injection 0.2 mg 2 06/13/2020 06/12/2020 insulin lispro (HumaLOG, ADM ELOG) injection 1-3 Units 1 06/13/2020 insulin lispro (HumaLOG, ADM ELOG) injection 1-5 Units 1 06/13/2020 labetaloL (NORMODYNE,TRANDAT E) tablet 200 mg 6 06/13/2020 06/08/2020 labetaloL (NORMODYNE,TRANDAT E) tablet 300 mg 1 06/13/2020 niCARdipine (CARDENE) 50,000 mcg in sodium chloride 0.9% 100 mL (500 mcg/mL) infusion 1 06/13/2020 nitroglycerin (NITRO-BID) 2 % ointment 2 inch 1 06/13/2020 acetaminophen (TYLENOL) 32 m g/mL oral solution 1,000 mg 1 06/12/2020 acetaminophen (TYLENOL) suppository 650 mg 1 06/12/2020 acetaminophen (TYLENOL) tablet 1,000 mg 1 0 06/12/2020 albumin 5 % bottle 12.5 g 1 06/12/2020 aspirin suppository 300 mg 1 06/12/2020 aspirin tablet 325 mg 2 06/12/2020 bisacodyL (DULCOLAX) suppository 10 mg 2 06/09/2020 ceFAZolin (ANCEF) 2,000 mg/2 0 mL in sterile water (premix) 2,000 mg 3 06/12/2020 dextrose (D10W) 10% bolus 125 mL 1 06/13/19 docusate (COLACE) 10 mg/mL o ral liquid 100 mg 1 06/12/2020 docusate sodium (COLACE) capsule 100 mg 1 0 06/12/2020 famotidine (PEPCID) injection 20 mg 2 06/12 fentaNYL (SUBLIMAZE) preserv ative free injection 25 mcg 1 06/12/2020 heparin 5,000 unit/mL inject ion 5,000 Units 1 06/12/2020 insulin lispro (HumaLOG, ADM ELOG) injection 1-14 Units 1 06/12/2020 insulin regular (HumuLIN R, NovoLIN R) 100 Units in sodium chloride 0.9% 100 mL (1 Units/mL) infusion 1 06/12/2020 insulin regular bolus from bag 2-14 Units 2 06/12/2020 niCARdipine (CARDENE) 25,000 mcg in sodium chloride 0.9% 50 mL (500 mcg/mL) infusion 1 06/12/2020 norepinephrine in 0.9% sodiu m chloride (LEVOPHED) 8,000 mcg/250 mL (32 mcg/mL) infusion (premix) 1 06/12/2020 ondansetron (ZOFRAN) injection 4 mg 2 06/1206/08/2020 oxyCODONE (ROXICODONE) tablet 5 mg 1 2020 polyethylene glycol (MIRALAX) packet 17 g 1 06/12/2020 potassium chloride 20 mEq/50 mL in sterile water (premix) 20 mEq 1 06/12/2020 propofol (DIPRIVAN) 10 mg/mL infusion 1 senna (SENOKOT) tablet 1 tablet 1 senna 1.76 mg/mL syrup 8.8 mg 1 06/12/2020 sodium chloride 0.9% flush 0.5-20 mL 5 05/2906/08/2020 sodium chloride 0.9% flush 10-30 mL 1 06/12 sodium chloride 0.9% infusion 3 06/12/2020 06/09/2020 sodium chloride 0.9% solution 1,000 mL 1 sodium phosphate 15 mmol in sodium chloride 0.9% 250 mL IVPB 1 06/12/2020 vancomycin 1500 mg/250 mL in sodium chloride 0.9% (premix) 1,500 mg 3 06/12/2020 cyanocobalamin (Vitamin B-12 ) injection 1,000 mcg 1 06/10/2020 epoetin live-epbx (RETACRIT) (10,000 unit/mL) injection 20,000 Units 1 06/10/2020 aluminum-magnesium hydroxide -simethicone (MAALOX MAX) 80-80-8 mg/mL oral suspension 20 mL 1 06/09/2020 lidocaine viscous (XYLOCAINE ) 2 % solution 5 mL 1 06/09/2020 morphine injection 4 mg 1 06/09/2020 nitroglycerin (NITROSTAT) mendez blingual tablet 0.4 mg 1 06/09/2020 nitroglycerin in dextrose 5% 50 mg/250 mL (200 mcg/mL) infusion (premix) 1 06/09/2020 acetaminophen (TYLENOL) tablet 650 mg 1 01/2021 atorvastatin (LIPITOR) tablet 20 mg 1 06/08 heparin 5,000 unit/mL inject ion 2,000 Units 2 06/08/2020 heparin 5,000 unit/mL inject ion 3,000 Units 2 06/08/2020 heparin in 0.45% sodium chlo ride 25,000 units/250 mL (100 units/mL) infusion (premix) 2 06/08/2020 ondansetron ODT (ZOFRAN-ODT) disintegrating tablet 4 mg 1 06/08/2020 Lab Orders Without Results Count Last Ordered D ate First Ordered Date POCT GLUCOSE DEVICE 12 06/13/2020 06/13/19 21 Nursing Count Last Ordered Date First Orde red Date DISCHARGE ACTIVITY 5 06/14/2020 DISCHARGE CALL PROVIDER 4 06/14/2020 DISCHARGE INSTRUCTIONS 2 06/14/2020 WEIGHT RESTRICTIONS 1 06/14/[address] SEQUENTIAL COMPRESSION DEVICE 1 06/12 WEIGH PATIENT 1 06/08/2020 Transfer Count Last Ordered Date First Orde red Date TRANSFER PATIENT 4 06/13/2020 06/12/2020 CORE MEASURES Count Last Ordered Date First Ord ered Date REASON FOR NO VTE PROPHYLAXIS AT ADMISSION 1 06/08/2020 documented in this encounter Care Teams Field Services Manager Relationship Specialty Start Date End Date Scott Oneill MD PCP - General Internal Medicine 04/27/20 documented as of this encounter
--- OUTSIDE RECORDS SUMMARY | 2024-04-04 01:45 | XMS_ITS | Encounter Summary ---
Author Organization [facility] Address [address] [place] [address] Care Team Providers Care Program Officer Name Role Phone Scott Oneill MD Primary Care Provider [phone] Reason for Visit * Reason Comments Follow-up cath on 06/08/20. By pass surgery last Friday @ [facility] on 06/12/20. Does he need scope to get for GI bleed? 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 Gender Identity Male 12/24/2023 11:25 AM CDT Sexual Orientation Straight 12/24/2023 11 :25 AM CDT documented as of this encounter Last Filed Vital Signs Vital Sign Reading Time Taken Comments Blood Pressure 122/62 06/19/2020 10:42 AM CDT Pulse 68 06/19/2020 10:42 AM CDT Temperature - - Respiratory Rate - - Oxygen Saturation 98% 06/19/2020 10:42 AM CDT Inhaled Oxygen Concentration - - Weight 95.4 kg (210 lb 6.4 oz) 06/19/2020 10:42 AM CDT Height 165.1 cm (5' 5 ) 06/19/2020 10:42 AM CDT Body Mass Index 35.01 06/19/2020 10:42 AM CDT documented in this encounter Progress Notes * Kathrin Austin MD - 06/19/2020 10:45 AM CDT [facility] DATE OF VISIT: 06/19/2020 CHIEF COMPLAINT Chief Complaint Patient presents with ??? Follow-up cath on 06/08/20. Bypass surgery last Friday @ [facility]. Echo on 06/12/20. ??? Does he need scope to get for GI bleed? Does not want HPI Britton Nielsen is a 65 y.o. 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 He was referred to [facility] and underwent CABGx3 by Dr. Cordero with BURNS to LAD, SVG to ramus and SVG to RCA. Left radial artery was harvested but was too small to be used. He did well postoperatively and he is here for follow-up. It has lucian e pain around the incision site, fatigability. He is very happy with medical care at [facility]. He denies lower limb edema, dizziness, syncope. MEDICAL HISTORY Past Medical History: Diagnosis Date ??? Arthritis ??? DVT (deep venous thrombosis) ([facility]) ??? History of transfusion ??? Hyperlipidemia ??? Hypertension ??? Overweight ??? Renal failure ??? Skin cancer ??? Sleep apnea Past Surgical History: Procedure Laterality Date ??? CARDIAC CATHETERIZATION 06/08/2020 ??? CORONARY ARTERY BYPASS GRAFT ??? NO PAST SURGERIES Social History Tobacco [...] mg capsule labetaloL (NORMODYNE,TRANDATE) 200 mg tablet oxyCODONE-acetaminophen (PERCOCET) 5-325 mg per tablet potassium chloride ER 20 mEq CR tablet Vitamin D2 1,250 mcg (50,000 unit) capsule ALLERGIES No Known Allergies REVIEW OF SYSTEMS Review of Systems Constitution: Positive for malaise/fatigue. Negative for chills and [...] allergies and hives. PHYSICAL EXAM Vitals BP 122/62 (BP Location: Right arm, Patient Position: Sitting) Pulse 68 Ht 165.1 cm (5' 5 ) Wt 95.4 kg (210 lb 6.4 oz) SpO2 98% BMI 35.01 kg/m?? Body mass index is 35.01 kg/m??. Physical Exam Constitutional: He is oriented to person, place, and time. He appears well- developed and well-nourished. HENT: Head: Normocephalic and atraumatic. Mouth/Throat: Oropharynx is clear and moist. Hard of hearing Eyes: Conjunctivae and EOM are normal. Left eye exhibits no discharge. No scleral icterus. Neck: No thyromegaly present. Cardiovascular: Normal rate, regular rhythm and normal heart sounds. Exam reveals no gallop and no friction rub. No murmur heard. Pulmonary/Chest: Effort normal and breath sounds normal. No respiratory distress. He has no wheezes. He has no rales. He exhibits no tenderness. Chest wall incision is clean and no signs of infection Abdominal: Soft. He exhibits no distension and no mass. There is no abdominal tenderness. Musculoskeletal: General: No tenderness, deformity or edema. Cervical back: Normal range of motion and neck supple. Neurological: He is alert and oriented to person, place, and time. No cranial nerve deficit. He exhibits normal muscle tone. Skin: Skin is warm. No rash noted. No erythema. Psychiatric: He has a normal mood and affect. Judgment normal. LABS AND OTHER DIAGNOSTIC TESTS Lab Results Component Value Date WBC 5.2 06/15/2020 HGB 9.1 (L) 06/15/2020 HCT 28.5 (L) 06/15/2020 MCV 91.1 06/15/2020 Chemistry Component Value Date/Time SODIUM 133 (L) 06/15/2020 0030 POTASSIUM 4.3 06/15/2020 0030 CHLORIDE 99 06/15/2020 0030 CO2 22 06/15/2020 0030 BUNSER 50 (H) 06/15/2020 0030 CREATININE 2.43 (H) 06/15/2020 0030 GLUCOSE 125 06/15/2020 0030 Component Value Date/Time CALCIUM 9.0 06/15/2020 0030 ALKPHOS 87 06/08/2020 1832 AST 14 06/08/2020 1832 ALT 14 06/08/2020 1832 BILITOT 0.6 06/08/2020 1832 EKG2/06/2020-sinus bradycardia Lexiscan stress test March [address] Negative for ischemia. Ejection fraction 63% Cardiac catheterization May 2020-at [facility]. High-grade stenosis involving ostial ramus, ostial left circumflex artery and RCA. The LAD in the cranial view 90% ostial E. Distal left main 50% ASSESSMENT Diagnoses and all orders for this visit: S/P CABG x 3 (Primary) Family history of early CAD Hypertension secondary to other renal disorders Chronic deep vein thrombosis (DVT) of proximal vein of lower extremity, unspecified laterality ([facility]/HCC) Stage 3b chronic kidney disease Mixed hyperlipidemia PLAN/RECOMMENDATIONS -patient status post CABG x3. Chest [...] - in regards to hyperlipidemia, continue statin. Follow up in the office in 3 months Kathrin Austin MD documented in this encounter Plan of Treatment Not on file documented as of this encounter Visit Diagnoses Diagnosis S/P CABG x 3- Primary Postsurgical aortocoronary bypass status Family history of early CAD Family history of ischemic heart disease Hypertension secondary to other renal disorders Chronic deep vein thrombosis (DVT) of proximal vein of lower extremity, unspecified laterality (HCC) Stage 3b chronic kidney disease (HCC) Mixed hyperlipidemia documented in this encounter Care Teams Program Officer Relationship Specialty Start Date End Date Scott Oneill MD PCP - General Internal Medicine 04/27/20 documented as of this encounter
--- OUTSIDE RECORDS SUMMARY | 2024-04-04 01:45 | XMS_ITS | Encounter Summary ---
Author Organization [facility] Address [address] [place] [address] Phone Care Team Providers Care Consumer Marketing Specialist Name Role Phone Scott Oneill MD Primary Care Provider [phone] Reason for Visit * Auth/Cert Specialty Diagnoses / Procedures Referred By Contac t Referred To Contact Referral ID Status Reason Start Date Expiration Date Visits Re quested Visits Authorized [id number] 1 1 Encounter Details Date Type Department Care Team (Late st Contact Info) Description 06/20/2020 Home Care Visit [facility] Home Health - [address] [place] [id number] Britney Aparicio RN TRAVEL SCREENING CASE COMMUNICATION [...] on file 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
--- OUTSIDE RECORDS SUMMARY | 2024-04-04 01:45 | XMS_ITS | Encounter Summary ---
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
--- OUTSIDE RECORDS SUMMARY | 2024-04-04 01:45 | XMS_ITS | Encounter Summary ---
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 (CMS/HCC); S/P CABG x 3 Discharge Disposition: Discharge to home, home health skilled care Social History Tobacco Use Types Packs/Day [...] on file Legal Sex Male 1:23 AM SAXOPHONE ASSEMBLER Gender Identity Male 12/24/2023 11:25 AM CDT Sexual Orientation Straight 12/24/2023 11 :25 AM CDT documented as of this encounter Last Filed Vital Signs Vital Sign Reading Time Taken Comments Blood Pressure 120/72 06/15/2020 12:34 PM CDT Pulse 81 06/15/2020 12:34 PM CDT Temperature 36.8 ??C (98.2 ??F) 06/15/2020 12:34 PM C DT Respiratory Rate 18 06/15/2020 12:34 PM CDT Oxygen Saturation 93% 06/15/2020 12:34 PM CDT Inhaled Oxygen Concentration - - Weight 96.7 kg (213 lb 3 oz) 06/15/2020 12:34 PM CDT Height 167.6 cm (5' 6 ) 06/12/2020 7:04 AM CDT Body Mass Index 34.41 06/12/2020 7:04 AM CDT documented in this encounter Discharge Diagnoses Diagnosis Atherosclerotic heart disease of quechan coronary artery with unstable angina pectoris ([facility]) (HCC) - ATHEROSCLEROTIC HEART DISEASE OF [place] CORONARY ARTERY WITH UNSTABLE ANGINA PECTORIS Acute kidney failure, unspecified (HCC) - ACUTE KIDNEY FAILURE, UNSPECIFIED Acute kidney failure, unspecified Acute posthemorrhagic anemia - ACUTE POSTHEMORRHAGIC ANEMIA Hypertensive chronic kidney disease with stage 1 through stage 4 chronic kidney disease, or unspecified chronic kidney disease - HYPERTENSIVE CHRONIC KIDNEY DISEASE WITH STAGE 1 THROUGH STAGE 4 CHRONIC KIDNEY DISEASE, OR UNSPECIF Chronic kidney disease, stage 3b (HCC) - CHRONIC KIDNEY DISEASE, STAGE 3B Nephropathy induced by other drugs, medicaments and biological substances - NEPHROPATHY INDUCED BY OTHER DRUGS, MEDICAMENTS AND BIOLOGICAL SUBSTANCES Adverse effect of diagnostic agents, initial encounter - ADVERSE EFFECT OF DIAGNOSTIC AGENTS, INITIAL ENCOUNTER Sleep apnea, unspecified - SLEEP APNEA, UNSPECIFIED Anemia in other chronic diseases classified elsewhere - ANEMIA IN OTHER CHRONIC DISEASES CLASSIFIED ELSEWHERE (MANIFESTATION) Type 2 diabetes mellitus with diabetic chronic kidney disease (HCC) - TYPE 2 DIABETES MELLITUS WITH DIABETIC CHRONIC KIDNEY DISEASE Vitamin B12 deficiency anemia, unspecified - VITAMIN B12 DEFICIENCY ANEMIA, UNSPECIFIED Hyperlipidemia, unspecified - HYPERLIPIDEMIA, UNSPECIFIED Other disorders of phosphorus metabolism - OTHER DISORDERS OF PHOSPHORUS METABOLISM Type 2 diabetes mellitus with hyperglycemia ([facility]) (HCC) - TYPE 2 DIABETES MELLITUS WITH HYPERGLYCEMIA Hypovolemia - HYPOVOLEMIA Hyperkalemia - HYPERKALEMIA Hyperpotassemia Morbid (severe) obesity due to excess calories (HCC) - MORBID (SEVERE) OBESITY DUE TO EXCESS CALORIES Hypotension, unspecified - HYPOTENSION, UNSPECIFIED Other abnormalities of breathing - OTHER ABNORMALITIES OF BREATHING Other automatic operator (current) drug therapy - OTHER CYBER SECURITY CONSULTANT (CURRENT) DRUG THERAPY Unspecified place in hospital as the place of occurrence of the external cause - UNSPECIFIED PLACE IN HOSPITAL THE PLACE OF OCCURRENCE OF THE EXTERNAL CAUSE Body mass index (BMI) 33.0-33.9, adult - BODY MASS INDEX [BMI] 33.0-33.9, ADULT group home (current) use of anticoagulants - [facility] (CURRENT) USE OF ANTICOAGULANTS Long-term (current) use of anticoagulants Personal history of other malignant neoplasm of skin - PERSONAL HISTORY OF OTHER MALIGNANT NEOPLASM OF SKIN Personal history of other venous thrombosis and embolism - PERSONAL HISTORY OF OTHER VENOUS THROMBOSIS AND EMBOLISM Personal history of peptic ulcer disease - PERSONAL HISTORY OF PEPTIC ULCER DISEASE Personal history of nicotine dependence - PERSONAL HISTORY OF NICOTINE DEPENDENCE Other specified events, undetermined intent, initial encounter - OTHER SPECIFIED EVENTS, UNDETERMINED INTENT, INITIAL ENCOUNTER documented in this encounter Discharge Summaries * Robyn Guerin PA - 06/15/2020 1:11 PM CDT Physician Discharge Summary Patient ID: Britton Nielsen Sr. [id number] 1955 (65 y.o.) Admit date: 06/08/2020 Discharge date and time: 06/15/2020 Attending Physician: Hernan Cordero MD Primary Diagnosis: Multiple vessel coronary artery disease with accelerating angina Secondary Diagnoses: ?? Hypertension ?? Hyperlipidemia ?? JACQUELYN on CKD stage 3b ?? Obesity ?? Hx of DVT ?? Obesity ?? Sleep apnea ?? Peptic ulcer disease with prior embolization of the gastroduodenal artery in 2017 ?? Anemia of chronic disease and B12 [...] positive family history. Hospital Course: Britton Nielsen Sr. was taken to the operating room on [...] a day as needed for pain. rx [id number] QTY 29 [facility] Indications: neuropathic pain, pain [...] this encounter Progress Notes * Shyann Jimenes, SENIOR ART DIRECTOR - 06/15/2020 1:19 PM CDT Physical Therapy [...] Sit<>stand SBA. Ambulation 1 Distance (ft) 1 [id number] Surface 1 Level tile Device 1 No [...] (from Physical Therapy) Active Problems Problem: PT [facility] Start Date: 06/13/20 Goal Start Date End Date PT [facility] - [facility] 1 06/13/20 -- Goal Details: Pt to perform bed mobility with independence . Goal Start Date End Date PT [facility] 2 06/13/20 -- Goal Details: Pt to ambulate >/= 360 ft with Least restrictive assistive device and Modified independent Goal Start Date End Date PT [facility] 3 06/13/20 -- Goal Details: Pt to ascend/descend 5 stairs with SBA x 1 and rails and/or assistive device as needed per home set up. Goal Start Date End Date PT [facility] 4 06/13/20 -- Goal Details: Pt to verbalize and consistently demonstrate adherence to sternal precautions during all functional mobility tasks Goal Start Date End Date PT [facility] 5 06/13/20 -- Goal Details: Pt to complete balance test to further determine risk of falls and need for assistivedevice Cosigned by Bobbi Gomez PT at 06/15/2020 5:27 PM CDT * Alfred Mcgarry EP-C - 06/15/2020 11:38 AM CDT Inpatient Cardiac Rehab Education Patient Information Patient Name: Britton Nielsen Sr. : 1955 Room/Bed: [place] [address] Insurance: Medicare Traditional Progress Note Store Standards Associate: FARIDA Franco Date: 06/15/2020 Possible Referring Diagnosis [...] fats)and exercise. Advised pt to consult their profile mill operator tape control, nurse, and/or physician if they have any questions about their diet/nutrition. ?? Cardiac Rehab: Gave pt options of facilities for Outpatient Cardiac Rehab (OCR) in their community. Explained OCR program. Pt expressed knowledge towards local OCR program - [facility] I stressed the importance/benefits of incorporating [...] working towards eventually trying to reach the [place] [employer] recommendations in regardsto exercise: 150+ [...] when it would be appropriate to call Instant Potato Processing Supervisor's office, go to the ER, or call 911 - pt verbalized understanding. ?? Insurance Coverage: Briefly explained general insurance coverage for OCR, but assured pt that OCR facility will usuallycall insurance and inform pt of more of an approximate coverage. ?? Post-Discharge: Explained process between discharge from hospital, and getting set up in an OCR program - f/u with Instant Potato Processing Supervisor, JOSRN f/u calls, OCR program contact. Conclusion Pt seems likely to participate in OCR. Reassured pt of importance and health care provider support of OCR. Pt verbalized understanding of education. Will complete order for OCR to be sent to Instant Potato Processing Supervisor. Thank you for allowing us to ice cream freezer assistant in the care of this patient. * Britney Kinney PA - 06/15/2020 11:13 AM CDT Images from the original note were not included. [facility] - Progress Note- Britton Nielsen SrVinnie is a 65 y.o. male - Date of : 1955 Primary care doctor: Scott Oneill MD Reason for initial consultation: 1. Angina pectoris syndrome (CMS/HCC) 2. Hypertension, unspecified type 3. 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 (CMS/HCC) Current [...] current rx and plans per CTS team ROMI Serrano-C [phone] - office - fax * Robyn Todd, [...] wound healing. Pt states he sees a dinkey motor operator for his CKD. Pt receptive to diet information. Educated pt on heart healthy renal diet recommendations. Good understanding verbalized. Objective Dietary Orders (From admission, onward) Start Ordered 06/13/20 1312 Adult Diet Special; Low Fat, Low Chol, Low Na; Renal Diet effective now Question Answer Comment ([facility]) Diet type Special Fat / Sodium Restriction: [...] Current Kcal/k Total Kcal/kg Estimated Needs : 8 Current Nutrition Issues: Nutrition Diagnosis 1: Increased [...] (from Occupational Therapy) Active Problems Problem: OT [facility] Start Date: 06/13/20 Goal Start Date End Date OT [facility] 1 06/13/20 -- Goal Details: Pt will complete toileting tasks and toilet transfer modified independent Goal Start Date End Date OT [facility] 2 06/13/20 -- Goal Details: Pt will complete LB dressing modified independent Goal Start Date End Date OT [facility] 3 06/13/20 -- Goal Details: Pt will complete grooming tasks at sink independently Goal Start Date End Date [facility] 4 06/13/20 -- Goal Details: Pt will [...] (from Physical Therapy) Active Problems Problem: PT [facility] Start Date: 06/13/20 Goal Start Date End Date PT [facility] - [facility] 1 06/13/20 -- Goal Details: Pt to perform bed mobility with independence . Goal Start Date End Date PT [facility] - [facility] 2 06/13/20 -- Goal Details: Pt to ambulate >/= 360 ft with Least restrictive assistive device and Modified independent Goal Start Date End Date PT [facility] - [facility] 3 06/13/20 -- Goal Details: Pt to ascend/descend 5 stairs with SBA x 1 and rails and/or assistive device as needed per home set up. Goal Start Date End Date PT [facility] - [facility] 4 06/13/20 -- Goal Details: Pt to verbalize and consistently demonstrate adherence to sternal precautions during all functional mobility tasks Goal Start Date End Date PT [facility] - Misc 5 06/13/20 -- Goal Details: Pt to [...] 1312 Radiology Review: XR Chest 1 View [[id number]] Collected: 06/14/20 1139 Order Status: Completed Updated: [...] from the original note were not included. [facility] - Progress Note- Britton Nielsen Sr. is a 65 y.o. male - Date of : 1955 Primary care doctor: Scott Oneill MD Reason for initial consultation: 1. Angina pectoris syndrome (CMS/HCC) 2. Hypertension, unspecified type 3. 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 (CMS/HCC) Current [...] plans per CTS team Cy Krause MD [phone] - office - fax * Bebe Maldonado COTA - 06/14/2020 8:20 AM CDT Occupational Therapy [...] (from Occupational Therapy) Active Problems Problem: OT Misc Start Date: 06/13/20 Goal Start Date End Date OT [facility] - [facility] 1 06/13/20 -- Goal Details: Pt will complete toileting tasks and toilet transfer modified independent Goal Start Date End Date OT [facility] 2 06/13/20 -- Goal Details: Pt will complete LB dressing modified independent Goal Start Date End Date OT [facility] 3 06/13/20 -- Goal Details: Pt will complete grooming tasks at sink independently Goal Start Date End Date OT [facility] 4 06/13/20 -- Goal Details: Pt will complete object retrieval from varying heights modified independent to simulate ADLs and IADLs Education: Patient has been educated on the role of OT, safety, precautions, ADL training, mobilitytraining, body mechanics and energy conservation. Education completed via verbal instruction and return demonstration. 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 [employer] Leisure (celaning house, wood working, walking, fixing up cars, dogs ) Fall within the last 6 months No Prior Function Comments Pt independent with all mobility and ADLs without devices at baseline Pain Assessment Pain Assessment 0-10 Pain Score 2 Pain Type Surgical pain Pain Location Chest Pain Orientation Mid Pain Frequency Constant/continuous Clinical Progression (10 at end of session ) Pain Interventions [...] 06/13/20 Goal Start Date End Date PT [facility] - [facility] 1 06/13/20 -- Goal Details: Pt to perform bed mobility with independence . Goal Start Date End Date PT [facility] 2 06/13/20 -- Goal Details: Pt to ambulate >/= 360 ft with Least restrictive assistive device and Modified independent Goal Start Date End Date PT [facility] 3 06/13/20 -- Goal Details: Pt to ascend/descend 5 stairs with SBA x 1 and rails and/or assistive device as needed per home set up. Goal Start Date End Date PT [facility] 4 06/13/20 -- Goal Details: Pt to verbalize and consistently demonstrate adherence to sternal precautions during all functional mobility tasks Goal Start Date End Date PT [facility] 5 06/13/20 -- Goal Details: Pt to [...] 0.5-20 mL, intra-catheter, Q8H ANUEL Continuous Infusions: insulin regular, 0-30 Units/hr, Last [...] Renal Diet effective now Question Answer Comment ([facility]) Diet type Special Fat / Sodium Restriction: [...] from the original note were not included. 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 [employer] Fall within the last 6 months No [...] RUE Assessment WFL LUE Assessment LUE Assessment WF OT Treatment/Exercise Comments OT Treatment/Exercise Comments Pt educated on incentive spirometer use and completed 5x with [id number] mL Other Comments Comments Pre OT: BP [...] (from Occupational Therapy) Active Problems Problem: OT [facility] Start Date: 06/13/20 Goal Start Date End Date OT [facility] 1 06/13/20 -- Goal Details: Pt will complete toileting tasks and toilet transfer modified independent Goal Start Date End Date OT [facility] 2 06/13/20 -- Goal Details: Pt will complete LB dressing modified independent Goal Start Date End Date [facility] 3 06/13/20 -- Goal Details: Pt will complete grooming tasks at sink independently Goal Start Date End Date [facility] 4 06/13/20 -- Goal Details: Pt will [...] from the original note were not included. [facility] CVR Daily Progress Note- Patient: Britton Nielsen Sr. : 1955 Age: 65 y.o. male Admiting Physician: Hernan Cordero MD Cad Draftsman: Yaneth Bull MD Shift: [facility] CVR AM Interval History: - Nicardipine up [...] clean, dry, intact. SVG site with dermabond FLOWER MACHINE OPERATOR. Drains: Chest tubes to -20 suction with [...] sodium chloride 0.9%, 10-30 mL Date 06/12/20 0700 - 06/13/20 0659 06/13/20 0700 - 06/14/20 0659 Shift 7554-4082 9260-6879 24 Hour Total 4882-5618 3732-4520 24 Hour Total INTAKE P.O. 240 240 I.V.(mL/kg) 1050(10.9) 264(2.7) 1314(13.6) Blood 500 500 IV Piggyback 2000 1999 Shift Total(mL/kg) 3550(36.8) 504(5.2) 4054(42.1) OUTPUT Urine(mL/kg/hr) 930(0.8) 1140(1) 2070(0.9) Other 3800 3800 Chest Tube 165 165 330 Shift Total(mL/kg) 4895(50.8) 1305(13.5) 6200(64.3) NET -1581 -292 -3132 Weight (kg) 96.4 96.4 96.4 96.4 96.4 [...] 06/12/20 1312 06/12/20 1312 06/12/20 0321 06/12/20 0321 06/11/20 1141 06/08/20 1832 SODIUM mmol/L 140 [...] due to dye from recent C. Intraop K 6.1 post bypass treated with [...] for bowel regimen. PRN miralax and dulcolax OH. Therapies: PT/OT for decreased mobility when able to participate Goals of care:?Full code During the day, the assessment and plan have been reviewed with the critical care attending physician & CT Surgeon. Stacey Haskins NP * Yevgeniy Gonzalez PA - 06/12/2020 11:19 PM CDT CVR Critical Care Progress Note Shifts: LIBBY Shift Options: [facility] CVR PM Britton Nielsen Sr. 1955 Hospital [...] chloride 0.9%, 0.5-20 mL, intra-catheter, Q8H ANUEL vancomycin, 1,500 mg, intravenous, Q24H Continuous Infusions:insulin [...] Tube:25] Intake/Output Summary (Last 24 hours) at 06/13/2020 0915 Last data filed at 06/13/2020 0900 Gross [...] WIRES: Disconnected ACCESS: RIJ CVC, Introducer(occupied by [place]), RA-Line DRAINS: MCT, PCT, Irizarry Laboratory data: [...] 1141 06/08/20 1832 06/08/20 1832 SODIUM mmol/L 140 -- -- 137 139 [...] 06/12/20 1312 06/12/20 1241 06/12/20 0908 06/12/20 0321 06/11/20 1141 06/08/20 1832 CALCIUM mg/dL 8.6 8.8 -- -- 8.7 9.0 8.3* CALCIUM ION mg/dL 4.70 5.11 -- -- -- -- -- CALCIUM ION POC mg/dL -- -- 3.80* < > -- -- -- < > = values in this interval not displayed. Recent Labs Lab Units 06/13/20 0813 06/13/20 0528 06/13/20 0403 06/13/20 0325 06/13/20 0145 06/12/20 2350 06/12/20 2249 06/12/20 2152 06/12/20 2059 GLUCOSE mg/dL -- -- -- -- 123 -- -- -- -- POC GLUCOSE MONITOR mg/dL 112 122 118 119 107 121 122 117 123 Recent Labs Lab Units 06/12/20 1312 06/12/20 1211 06/12/20 0321 06/11/20 1141 06/10/20 0211 06/09/20 0259 06/08/20 1832 PROTIME (PT) [...] 0211 HGBA1C 5.3 No results for input(s): [id number] in the last 8736 hours. Radiology/Diagnostic/Micro Review [...] code: SUZAN placement and diagnostic exam, non-congenital (42964) ICD code(s) for medical necessity: R93.1 - [...] inferior: normal 16- Apical septal: normal 17- [place]: normal Valves: Aortic Valve: Annulus: normal Leaflet [...] wires are present and aligned. A right [place]-Scott catheter is present with its tip in [...] prophylaxis # Glycemic monitoring and control - [place] Protocol # Follow I&O closely # Assess [...] from the original note were not included. [facility] - Progress Note- Britton Nielsen [...] nitroglycerin, 0-50 mcg/min, Last Rate: 50 mcg/min (06/09/20 2203) [START ON 06/12/2020] sodium chloride 0.9%, 30 [...] 1mg today and monthly Cy Krause MD [phone] - office - fax PHONE ASSEMBLER * Hernan Cordero MD - 06/10/2020 10:56 AM CST Alert, oriented. Had chest pain last night, feels great now on nitroglycerin and heparin. Again discussed with the patient with his the plan for surgery on Friday. Vital signs are stable, all questions were answered. PHONE ASSEMBLER * Yevgeniy Gonzalez, PA - 06/09/2020 11:45 PM CST CVR Critical Care Progress Note Shifts: LIBBY Shift Options: [facility] CVR PM Britton Nielsen Sr. 1955 Hospital [...] morphine. There were no subsequent events through thenight. HPI: 65 y.o. male presenting with multiple [...] nitroglycerin, 0.4 mg, 0.4 mg at 06/09/20 1942 ??? ondansetron ODT, 4 mg OR ondansetron, [...] GLUCOSE mg/dL 101 Recent Labs Lab Units 06/10/2021006/09/20 1955 06/09/20 1204 06/09/20 0259 06/08/20 1832 PROTIME (PT) sec -- -- -- -- 12.8 INR -- -- -- -- 1.2 APTT sec 93* 74* 82* 116* 59* Recent Labs Lab Units 06/10/20210 05/12/21 2359 06/09/20 2211 06/09/202006 TROPTHS ng/L 60* 56* 57* 51* TROPTHSDEL ng/L 9 5 6 -- TROPTHSINTRP Equivocal Equivocal Equivocal -- Resulted in the Past 12 Months 06/10/20210 HGBA1C 5.3 No results for input(s): [id number] in the last 8736 hours. Radiology/Diagnostic/Micro Review ECG 12 lead Vent Rate: 79 bpm RR Interval: 755 msec OH Interval: 152 msec QRS Duration: 82 msec QT Interval: 408 msec QTC Interval: 443 msec P-R-T [place]: 53 - 40 - 62 [address] DEPRESSION ABNORMAL ECG Electronically Signed By: Tavo Mares MD [facility] Card Impression and Plan: Active problems/Diagnoses: ASSESSMENT: [...] Critical Care Attending Physician & ROMI Sommer PHONE ASSEMBLER documented in this encounter H&P Notes * Stacey Haskins NP - 06/12/2020 1:43 PM CDT Images from the original note were not included. [facility] CVR History & Physical - Patient: Britton Nielsen Sr. : 1955 Age: 65 y.o. male Admiting Physician: Hernan Cordero MD Cad Draftsman: Yaneth Bull MD Shift: [facility] CVR AM HPI: 65 y.o. male with [...] ??? sodium chloride 0.9%, 10-30 mL Date 03/14/21 0700 - 06/12/20 0659 06/12/20 0700 - 06/13/20 0659 Shift 9193-5361 1314-3071 24 Hour Total 5721-8385 9827-6191 24 Hour Total INTAKE P.O. 1200 1200 I.V.(mL/kg) 128(1.4) 128(1.3) 1550(16.1) 1550(16.1) Blood 500 500 IV Piggyback 1999 1999 Shift Total(mL/kg) 1328(14.7) 1328(13.8) 4050(42) 4050(42) OUTPUT Urine(mL/kg/hr) 560(0.5) 725(0.6) 1285(0.6) 350 350 Other 3800 3800 Chest Tube 25 25 Shift Total(mL/kg) 560(6.2) 725(7.5) 1285(13.3) 4175(43.3) 4175(43.3) NET 768 -965 43 -125 -125 Weight (kg) 90.2 96.4 [...] for bowel regimen. PRN miralax and dulcolax OH. Therapies: PT/OT for decreased mobility when able [...] AM CST Cardiac-Thoracic Surgery Patient Name: Britton Nieslen : 1955 Referred by: No ref. provider [...] Jones PA, Last Rate: 7.1 mL/hr at 06/09/20450, 7.5 Units/kg/hr at 06/09/20450 ??? 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 Review of Systems [...] transfusion, and . All questions were answered. PHONE ASSEMBLER PHONE ASSEMBLER documented in this encounter Procedure Notes * [...] plan with the patient's team and other medical/technical services consultant staff. This time was in addition [...] plan with the ICU team and other medical/technical services consultant staff, making frequent assessments and decisions [...] Acute pain/acute postoperative pain Hypertensive crisis and Gbi-[id number]-Qdwukoobi mycardial infarction (Non-STEMI) Acute respiratory failure following [...] Care Post-Procedure Diagnose(s): Angina pectoris syndrome (CMS/HCC) ([facility]) Critical Care Performed by: Stacey Haskins NP [...] plan with the ICU team and other medical/technical services consultant staff, making frequent assessments and decisions [...] plan with the ICU team and other medical/technical services consultant staff, making frequent assessments and decisions [...] conditions: Acute pain/acute postoperative pain Hypertensive crisis, [id number] mycardial infarction (Non-STEMI) and Demand ischemia/elevatedtroponins Severe [...] Yaneth Bull MD at 06/10/2020 11:40 AM SAXOPHONE ASSEMBLER PHONE ASSEMBLER PHONE ASSEMBLER documented in this encounter Consult Notes * Cy Krause MD - 06/09/2020 2:15 PM CST Images from the original note were not included. [facility] - Consult Note- Britton Nielsen Sr. is a 65 [...] if indicated as well Cy Krause MD [phone] - office - fax PHONE ASSEMBLER documented in this encounter Miscellaneous Notes * Plan of Care - Francisca Scherer RN - 06/15/2020 7:34 AM CDT Home health care orders received. Patient agreeable to [facility]. * Plan of Care - Addison Armstrong RN - 06/14/2020 5:42 PM CDT Home health order and CM note reviewed, I will be arranging [facility] [phone], will follow as notdc today. * Plan of Care - Maliha [...] device for ambulation or any other dme detective captain. States discharge plan is to return home with . is going to take some time off work to be at home with and is planning on looking into private duty care when she has to return to work. Discussed home health care ( order currently pending). Patient agreeable to [facility]. 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 Likely some JACQUELYN due to dye from recent [facility]. Intra[facility] - current admission 06-08-2020 BUN [...] Obdulia Henry RN, BSN, CCDS Certified Clinical Environmental Services Associate Health Information Management * Plan of Care [...] CDT OPERATIVE REPORT SURGEON Hernan Cordero MD CLOTH BEAMER Ami Unger PREOPERATIVE DIAGNOSES Multiple vessel coronary [...] is a 65-year-old patient who presented to [facility] with chest pain, cardiac catheterization showed a [...] infection, stroke, blood transfusion, and . The rafiq hensley was quite anemic on arrival to the [...] gtts. Consent is not printed or signed. PHONE ASSEMBLER * Plan of Care - Lucila Jimenez [...] of discharge needs will improve Outcome: Progressing PHONE ASSEMBLER * Plan of Care - Kev Frank [...] on heparin gtt with one therapeutic result. PHONE ASSEMBLER PHONE ASSEMBLER * Plan of Care - Karuna De [...] RA, blood pressures 120-140s/50s, resting in chair. PHONE ASSEMBLER documented in this encounter Plan of Treatment [...] 06/12/2020 11:20 PM CDT Angina pectoris syndrome (CMS/HCC) POCT GLUCOSE DEVICE Routine 06/12/2020 1 0:49 [...] T HIGH-SENSITIVITY 6-HOUR Timed 06/10/2020 2:11 AM SAXOPHONE ASSEMBLER IRON PROFILE W/ IBC Routine 06/10/2020 2 :11 AM SAXOPHONE ASSEMBLER APTT Routine 06/10/2020 2:11 AM SAXOPHONE ASSEMBLER CBC WITHOUT DIFFERENTIAL Routine 06/10/2020 2:11 AM SAXOPHONE ASSEMBLER HEMOGLOBIN A1C Routine 06/10/2020 2:11 AM SAXOPHONE ASSEMBLER FERRITIN Routine 06/10/2020 2:11 AM SAXOPHONE ASSEMBLER VITAMIN B12 Routine 06/10/2020 2:11 AM SAXOPHONE ASSEMBLER LIPID PANEL Routine 06/10/2020 2:11 AM SAXOPHONE ASSEMBLER TROPONIN T HIGH-SENSITIVITY 4-HR Timed 06/09/2020 11:59 PM SAXOPHONE ASSEMBLER CRITICAL CARE Routine 06/09/2020 11:45 PM SAXOPHONE ASSEMBLER Hypertension, unspecified type Angina pectoris syndrome (CMS/HCC) US VEIN MAPPING DUPLEX LOWER EXTREMITY BILATERAL IP Routine 06/09/2020 10:30 PM SAXOPHONE ASSEMBLER TROPONIN T HIGH-SENSITIVITY 2-HOUR Timed 06/09/2020 10:11 PM SAXOPHONE ASSEMBLER US CAROTIDS DUPLEX BILATERAL IP Routine 06/09/2020 10:00 PM SAXOPHONE ASSEMBLER URINALYSIS AND REFLEX TO MICROSCOPIC AND CULTURE STAT 06/09/2020 9:48 PM SAXOPHONE ASSEMBLER PROTEIN / CREATININE RATIO, URINE, RANDOM Routine 06/09/2020 9:48 PM SAXOPHONE ASSEMBLER TROPONIN T HIGH-SENSITIVITY SERIES (BASELINE, 2HR, 4HR, 6HR) Routine 06/09/2020 8:07 PM SAXOPHONE ASSEMBLER APTT Timed 06/09/2020 7:55 PM SAXOPHONE ASSEMBLER ECG 12-LEAD STAT 06/09/2020 7:33 PM SAXOPHONE ASSEMBLER Hypertension, unspecified type XR CHEST PA LATERAL 2 VIEWS IP Routine 06/09/2020 4:18 PM SAXOPHONE ASSEMBLER APTT Timed 06/09/2020 12:04 PM SAXOPHONE ASSEMBLER PREPARE RBC STAT 06/09/2020 11:12 AM SAXOPHONE ASSEMBLER B CHECK SAMPLE Routine 06/09/2020 6:20 AM SAXOPHONE ASSEMBLER CBC WITHOUT DIFFERENTIAL Routine 06/09/2020 6:20 AM SAXOPHONE ASSEMBLER APTT Timed 06/09/2020 2:59 AM SAXOPHONE ASSEMBLER EGFR Routine 06/08/2020 6:32 PM SAXOPHONE ASSEMBLER APTT STAT 06/08/2020 6:32 PM SAXOPHONE ASSEMBLER PROTIME-INR STAT 06/08/2020 6:32 PM SAXOPHONE ASSEMBLER CBC WITHOUT DIFFERENTIAL STAT 06/08/2020 6:32 PM SAXOPHONE ASSEMBLER CBC WITHOUT DIFFERENTIAL Routine 06/08/2020 6:32 PM SAXOPHONE ASSEMBLER MAGNESIUM Routine 06/08/2020 6:32 PM SAXOPHONE ASSEMBLER COMPREHENSIVE METABOLIC PANEL Routine 06/08/2020 6:32 PM SAXOPHONE ASSEMBLER documented in this encounter Results * XR [...] signed by: Batool Byers M.D. us Stacey Bustillo Jozef SUPERVISOR FINE GRADING IMG XR PROCEDURES Final Re sult * eGFR (06/15/2020 12:30 AM CDT) eGFR 27 mL/min/1.7 3 m2 [facility] Comment: Interpretive Data Reference Interval Normal ?>/= [...] AM CDT 06/15/2020 1:15 AM CDT Stacey Haskins SUPERVISOR FINE GRADING LAB BLOOD ORDERABLES Final Result Performing Organization Address City/[facility]/ZIP Co de Phone Number [facility] [address] [facility] [employer] [address] * Phosphorus (06/15/2020 12:30 AM CDT) Pathologist [facility] [place] Phosphorus, pl 3.6 2.3 - 4.5 mg/dL [facility] Blood specimen (specimen) 06/15/2020 12:30 AM CDT 06/15/2020 1:15 AM CDT Stacey Haskins SUPERVISOR FINE GRADING LAB BLOOD ORDERABLES Final Result Performing Organization Address [facility] Co de Phone Number [facility] [address] [facility] [employer] [address] * Magnesium (06/15/2020 12:30 AM CDT) [facility] Magnesium 2.4 1.4 - 2.5 mg/dL [facility] Blood specimen (specimen) 06/15/2020 12:30 AM CDT 06/15/2020 1:15 AM CDT Stacey Haskins SUPERVISOR FINE GRADING LAB BLOOD ORDERABLES Final Result Performing Organization Address [facility]/ZIP Co de Phone Number [facility] [address] [facility] [employer] [address] * (ABNORMAL) Basic metabolic panel (06/15/2020 12:30 AM CDT) Pathologist [facility] [place] Sodium 133(L) 135 - 145 mmol/L [facility] Potassium, pl 4.3 3.3 - 4.9 mmol/L [facility] Chloride 99 97 - 110 mmol/L [facility] CO2 22 22 - 32 mmol/L [facility] Anion gap 12 2 - 15 mmol/L [facility] BUN 50(H) 8 - 25 mg/dL [facility] Creatinine 2.43(H) 0.80 - 1.30 mg/dL [facility] Glucose 125 70 - 199 mg/dL [facility] Comment: Interpretive Data Fasting glucose >/= 126 [...] 2017. Calcium 9.0 8.5 - 10.3 mg/dL [facility] Blood specimen (specimen) 06/15/2020 12:30 AM CDT 06/15/2020 1:15 AM CDT Stacey Haskins NP LAB BLOOD ORDERABLES Final Result [facility] [address] Department [place] [address] * (ABNORMAL) CBC without differential (06/15/2020 12:30 AM CDT) WBC 5.2 3.8 - 9.9 K/cumm [facility] Hgb 9.1(L) 13.0 - 17.5 g/dL [facility] Hct 28.5(L) 38.9 - 50.3 % [facility] Plt 133(L) 150 - 400 K/cumm [facility] MPV 10.5 9.1 - 12.3 fL [facility] RBC 3.13(L) 4.30 - 5.80 M/cumm [facility] MCV 91.1 81.3 - 96.4 fL [facility] MCH 29.1 27.1 - 33.3 pg [facility] MCHC 31.9(L) 32.3 - 35.7 g/dL [facility] RDW CV 15.8(H) 11.1 - 14.9 % [facility] RDW SD 51.7(H) 35.7 - 48.1 fL [facility] NRBC abs 0.00 0.00 - 0.01 K/cumm [facility] Blood specimen (specimen) 06/15/2020 12:30 AM CDT 06/15/2020 1:14 AM CDT Stacey Haskins SUPERVISOR FINE GRADING LAB BLOOD ORDERABLES Final Result Performing Organization Address [facility] Co de Phone Number [facility] [address] [facility] [employer] [address] * POCT glucose (06/14/2020 6:34 PM CDT) Glucose, POC 119 70 - 140 mg/dL [facility] Comment: For Glucose values <35 mg/dl when Hematocrit is >60 mg/dl,the test may not accurately detect significant hypoglycemia,and testing in the Laboratory should be considered if clinically indicated. Blood specimen (specimen) 06/14/2020 6:34 PM CDT 06/14/2020 6:34 PM CDT Hernan Cordero MD LAB POCT ORDERABLES - DEVIC E Final Result Performing Organization Address [facility] de Phone Number [facility] [address] [facility] [employer] [address] * POCT glucose (06/14/2020 12:14 PM CDT) Glucose, POC 125 70 - 140 mg/dL [facility] Comment: For Glucose values <35 mg/dl when Hematocrit is >60 mg/dl,the test may not accurately detect significant hypoglycemia,and testing in the Laboratory should be considered if clinically indicated. Blood specimen (specimen) 06/14/2020 12:14 PM CDT 06/14/2020 12:14 PM CDT Hernan Cordero MD LAB POCT ORDERABLES - DEVIC E Final Result [facility] [address] Department [place] [address] * XR Chest 1 View (06/14/2020 11:15 [...] Electronically signed by: Batool Byers M.D. us Jono LLANOS IMG XR PROCEDURES Final Resu lt * POCT glucose (06/14/2020 7:59 AM CDT) Glucose, POC 100 70 - 140 mg/dL [facility] Comment: For Glucose values <35 mg/dl when Hematocrit is >60 mg/dl,the test may not accurately detect significant hypoglycemia,and testing in the Laboratory should be considered if clinically indicated. Blood specimen (specimen) 06/14/2020 7:59 AM CDT 06/14/2020 7:59 AM CDT us Hernan Cordero MD LAB POCT ORDERABLES - DEVIC E Final Result [facility] [address] Department [place] [address] * XR Chest 1 View - Portable [...] in the superior vena cava are redemonstrated. ??Zurich-Scott catheter has been removed. ??Small effusions and [...] in the superior vena cava are redemonstrated. Zurich-Scott catheter has been removed. Small effusions and [...] signed by: Batool Byers M.D. Stacey Haskins SUPERVISOR FINE GRADING IMG XR PROCEDURES Final Re sult * eGFR (06/14/2020 1:10 AM CDT) eGFR 25 mL/min/1.7 3 m2 [facility] Comment: Interpretive Data Reference Interval Normal ?>/= [...] CDT 06/14/2020 1:24 AM CDT Stacey Haskins SUPERVISOR FINE GRADING LAB BLOOD ORDERABLES Final Result Performing Organization Address City/[facility] Co de Phone Number [facility] [address] [facility] [employer] [address] * Phosphorus (06/14/2020 1:10 AM CDT) [facility] Phosphorus, pl 4.3 2.3 - 4.5 mg/dL [facility] Blood specimen (specimen) 06/14/2020 1:10 AM CDT 06/14/2020 1:24 AM CDT Stacey Blandoney SUPERVISOR FINE GRADING LAB BLOOD ORDERABLES Final Result Performing Organization Address [facility] Co de Phone Number [facility] [address] [facility] [employer] [address] * Magnesium (06/14/2020 1:10 AM CDT) [facility] Magnesium 2.4 1.4 - 2.5 mg/dL [facility] Blood specimen (specimen) 06/14/2020 1:10 AM CDT 06/14/2020 1:24 AM CDT Stacey Haskins SUPERVISOR FINE GRADING LAB BLOOD ORDERABLES Final Result Performing Organization Address [facility] Co de Phone Number [facility] [address] [facility] [employer] [place], [place] [id number] * (ABNORMAL) Basic metabolic panel (06/14/2020 1:10 AM CDT) [facility] Sodium 135 135 - 145 mmol/L [facility] Potassium, pl 4.3 3.3 - 4.9 mmol/L [facility] Chloride 102 97 - 110 mmol/L [facility] CO2 22 22 - 32 mmol/L [facility] Anion gap 11 2 - 15 mmol/L [facility] BUN 35(H) 8 - 25 mg/dL [facility] Creatinine 2.53(H) 0.80 - 1.30 mg/dL [facility] Glucose 109 70 - 199 mg/dL [facility] Comment: Interpretive Data Fasting glucose >/= 126 [...] 2017. Calcium 8.9 8.5 - 10.3 mg/dL [facility] Blood specimen (specimen) 06/14/2020 1:10 AM CDT 06/14/2020 1:24 AM CDT us Stacey Haskins NP LAB BLOOD ORDERABLES Final Result [facility] [address] Department [place] [address] * (ABNORMAL) CBC without differential (06/14/2020 1:10 AM CDT) WBC 7.5 3.8 - 9.9 K/cumm [facility] Hgb 9.5(L) 13.0 - 17.5 g/dL [facility] Hct 29.9(L) 38.9 - 50.3 % [facility] Plt 129(L) 150 - 400 K/cumm [facility] MPV 9.7 9.1 - 12.3 fL [facility] RBC 3.33(L) 4.30 - 5.80 M/cumm [facility] MCV 89.8 81.3 - 96.4 fL [facility] MCH 28.5 27.1 - 33.3 pg [facility] MCHC 31.8(L) 32.3 - 35.7 g/dL [facility] RDW CV 16.0(H) 11.1 - 14.9 % [facility] RDW SD 52.3(H) 35.7 - 48.1 fL [facility] NRBC abs 0.00 0.00 - 0.01 K/cumm [facility] Blood specimen (specimen) 06/14/2020 1:10 AM CDT 06/14/2020 1:24 AM CDT Stacey Haskins SUPERVISOR FINE GRADING LAB BLOOD ORDERABLES Final Result Performing Organization Address City/[facility]/ZIP Co de Phone Number [facility] [address] [facility] [employer] [place], [place] [id number] * POCT glucose (06/13/2020 8:52 PM CDT) Glucose, POC 117 70 - 140 mg/dL [facility] Comment: For Glucose values <35 mg/dl when Hematocrit is >60 mg/dl,the test may not accurately detect significant hypoglycemia,and testing in the Laboratory should be considered if clinically indicated. Blood specimen (specimen) 06/13/2020 8:52 PM CDT 06/13/2020 8:52 PM CDT us Hernan Cordero MD LAB POCT ORDERABLES - DEVIC E Final Result Performing Organization Address [facility]/ZIP Co de Phone Number [facility] [address] Department [employer] [place] [place] [address] * (ABNORMAL) POCT glucose (06/13/2020 5:57 PM CDT) Glucose, POC 225(H) 70 - 140 mg/dL [facility] Comment: For Glucose values <35 mg/dl when Hematocrit is >60 mg/dl,the test may not accurately detect significant hypoglycemia,and testing in the Laboratory should be considered if clinically indicated. Blood specimen (specimen) 06/13/2020 5:57 PM CDT 06/13/2020 5:57 PM CDT Hernan Cordero MD LAB POCT ORDERABLES - DEVIC E Final Result Performing Organization Address [facility] Co de Phone Number [facility] [address] Department [employer] [address] * POCT glucose (06/13/2020 10:32 AM CDT) Glucose, POC 108 70 - 140 mg/dL [facility] Comment: For Glucose values <35 mg/dl when Hematocrit is >60 mg/dl,the test may not accurately detect significant hypoglycemia,and testing in the Laboratory should be considered if clinically indicated. Blood specimen (specimen) 06/13/2020 10:32 AM CDT 06/13/2020 10:32 AM CDT Hernan Cordero MD LAB POCT ORDERABLES - DEVIC E Final Result Performing Organization Address [facility] de Phone Number [facility] [address] [facility] [employer] [address] * POCT glucose (06/13/2020 8:13 AM CDT) Glucose, POC 112 70 - 140 mg/dL [facility] Comment: For Glucose values <35 mg/dl when Hematocrit is >60 mg/dl,the test may not accurately detect significant hypoglycemia,and testing in the Laboratory should be considered if clinically indicated. Blood specimen (specimen) 06/13/2020 8:13 AM CDT 06/13/2020 8:13 AM CDT Hernan Cordero MD LAB POCT ORDERABLES - DEVIC E Final Result Performing Organization Address [facility] Co de Phone Number [facility] [address] Department [employer] [address] * Critical Care (06/13/2020 7:21 AM CDT) Narrative Stacey Haskins NP - 06/13/2020 7:21 AM CDT Stacey Haskins NP ? 06/13/2020 ??2:11 PM Critical Care Performed by: Stacey Haksins NP Authorized by: Stacey Haskins NP CRITICAL [...] plan with the patient's team and other medical/technical services consultant staff. This time was in addition [...] tip overlies the superior vena cava.. ??A Zurich-Scott catheter is in place, tip overlies the [...] tip overlies the superior vena cava.. A Zurich-Scott catheter is in place, tip overlies the [...] signed by: Neisha Franks M.D. Stacey Haskins SUPERVISOR FINE GRADING IMG XR PROCEDURES Final Re sult * POCT glucose (06/13/2020 5:28 AM CDT) Glucose, POC 122 70 - 140 mg/dL [facility] Comment: For Glucose values <35 mg/dl when Hematocrit is >60 mg/dl,the test may not accurately detect significant hypoglycemia,and testing in the Laboratory should be considered if clinically indicated. Blood specimen (specimen) 06/13/2020 5:28 AM CDT 06/13/2020 5:28 AM CDT Result [facility] Hernan Cordero MD LAB POCT ORDERABLES - DEVIC E Final Result Performing Organization Address [facility] Co de Phone Number [facility] [address] [place] [address] * POCT glucose (06/13/2020 4:03 AM CDT) Glucose, POC 118 70 - 140 mg/dL [facility] Comment: For Glucose values <35 mg/dl when Hematocrit is >60 mg/dl,the test may not accurately detect significant hypoglycemia,and testing in the Laboratory should be considered if clinically indicated. Blood specimen (specimen) 06/13/2020 4:03 AM CDT 06/13/2020 4:03 AM CDT Hernan Cordero MD LAB POCT ORDERABLES - DEVIC E Final Result Performing Organization Address [facility] Co de Phone Number [facility] [address] Department [employer] [place] [address] * POCT glucose (06/13/2020 3:25 AM CDT) [facility] Glucose, POC 119 70 - 140 mg/dL [facility] Comment: For Glucose values <35 mg/dl when Hematocrit is >60 mg/dl,the test may not accurately detect significant hypoglycemia,and testing in the Laboratory should be considered if clinically indicated. Blood specimen (specimen) 06/13/2020 3:25 AM CDT 06/13/2020 3:25 AM CDT us Hernan Cordero MD LAB POCT ORDERABLES - DEVIC E Final Result [facility] [address] Department [place] [address] * eGFR (06/13/2020 1:45 AM CDT) [facility] eGFR 30 mL/min/1.7 3 m2 [facility] Comment: Interpretive Data Reference Interval Normal ?>/= [...] CDT 06/13/2020 2:04 AM CDT Stacey Haskins SUPERVISOR FINE GRADING LAB BLOOD ORDERABLES Final Result Performing Organization Address [facility] Co de Phone Number [facility] [address] Department [employer] [place], [place] [id number] * POCT glucose (06/13/2020 1:45 AM CDT) Glucose, POC 107 70 - 140 mg/dL [facility] Comment: For Glucose values <35 mg/dl when Hematocrit is >60 mg/dl,the test may not accurately detect significant hypoglycemia,and testing in the Laboratory should be considered if clinically indicated. Blood specimen (specimen) 06/13/2020 1:45 AM CDT 06/13/2020 1:45 AM CDT Result [facility] Hernan Cordero MD LAB POCT ORDERABLES - DEVIC E Final Result Performing Organization Address [facility] de Phone Number [facility] [address] [facility] [employer] [place], [place] [id number] * (ABNORMAL) Phosphorus (06/13/2020 1:45 AM CDT) Phosphorus, pl 4.9(H) 2.3 - 4.5 mg/dL [facility] Comment:Reviewed Blood specimen (specimen) 06/13/2020 1:45 AM CDT 06/13/2020 2:04 AM CDT Stacey Haskins SUPERVISOR FINE GRADING LAB BLOOD ORDERABLES Final Result Performing Organization Address [facility] Co de Phone Number [facility] [address] [facility] [employer] [place], [place] [id number] * (ABNORMAL) Magnesium (06/13/2020 1:45 AM CDT) Pathologist [facility] [place] Magnesium 2.7(H) 1.4 - 2.5 mg/dL [facility] Blood specimen (specimen) 06/13/2020 1:45 AM CDT 06/13/2020 2:04 AM CDT Stacey Parkerestela Haskins SUPERVISOR FINE GRADING LAB BLOOD ORDERABLES Final Result Performing Organization Address [facility] Co de Phone Number [facility] [address] [facility] [employer] [address] * Calcium, ionized (06/13/2020 1:45 AM CDT) [facility] Calcium, Ionized 4.70 4.40 - 5.40 mg/dL [facility] Blood specimen (specimen) 06/13/2020 1:45 AM CDT 06/13/2020 1:59 AM CDT Stacey Iwona Haskins SUPERVISOR FINE GRADING LAB BLOOD ORDERABLES Final Result Performing Organization Address [facility] de Phone Number [facility] [address] [facility] [employer] [place] [address] * (ABNORMAL) Basic metabolic panel (06/13/2020 1:45 AM CDT) [facility] Sodium 140 135 - 145 mmol/L [facility] Potassium, pl 5.2(H) 3.3 - 4.9 mmol/L [facility] Chloride 108 97 - 110 mmol/L [facility] CO2 21(L) 22 - 32 mmol/L [facility] Anion gap 11 2 - 15 mmol/L [facility] BUN 25 8 - 25 mg/dL [facility] Creatinine 2.18(H) 0.80 - 1.30 mg/dL [facility] Glucose 123 70 - 199 mg/dL [facility] Comment: Interpretive Data Fasting glucose >/= 126 [...] 2017. Calcium 8.6 8.5 - 10.3 mg/dL [facility] Blood specimen (specimen) 06/13/2020 1:45 AM CDT 06/13/2020 2:04 AM CDT us Stacey Haskins NP LAB BLOOD ORDERABLES Final Result [facility] [address] Department [place] [address] * (ABNORMAL) CBC without differential (06/13/2020 1:45 AM CDT) Pathologist [facility] [place] WBC 8.0 3.8 - 9.9 K/cumm [facility] Hgb 10.1(L) 13.0 - 17.5 g/dL [facility] Hct 31.0(L) 38.9 - 50.3 % [facility] Plt 116(L) 150 - 400 K/cumm [facility] MPV 9.8 9.1 - 12.3 fL [facility] RBC 3.52(L) 4.30 - 5.80 M/cumm [facility] MCV 88.1 81.3 - 96.4 fL [facility] MCH 28.7 27.1 - 33.3 pg [facility] MCHC 32.6 32.3 - 35.7 g/dL [facility] RDW CV 15.8(H) 11.1 - 14.9 % [facility] RDW SD 50.4(H) 35.7 - 48.1 fL [facility] NRBC abs 0.00 0.00 - 0.01 K/cumm [facility] Blood specimen (specimen) 06/13/2020 1:45 AM CDT 06/13/2020 2:04 AM CDT Stacey Haskins SUPERVISOR FINE GRADING LAB BLOOD ORDERABLES Final Result Performing Organization Address [facility] Co de Phone Number [facility] [address] Department of [employer] [address] * POCT glucose (06/12/2020 11:50 PM CDT) [facility] Signature Glucose, POC 121 70 - 140 mg/dL [facility] Comment: For Glucose values <35 mg/dl when Hematocrit is >60 mg/dl,the test may not accurately detect significant hypoglycemia,and testing in the Laboratory should be considered if clinically indicated. Blood specimen (specimen) 06/12/2020 11:50 PM CDT 06/12/2020 11:50 PM CDT Hernan Cordero MD LAB POCT ORDERABLES - DEVIC E Final Result Performing Organization Address [facility] Co de Phone Number [facility] [address] Department [place] [address] * Critical Care (06/12/2020 11:20 PM CDT) [...] plan with the ICU team and other medical/technical services consultant staff, making frequent assessments and decisions [...] pain/acute postoperative pain ?? Hypertensive crisis and [id number] mycardial infarction (Non-STEMI) ?? Acute respiratory failure [...] * POCT glucose (06/12/2020 10:49 PM CDT) Glucose, POC 122 70 - 140 mg/dL [facility] Comment: For Glucose values <35 mg/dl when Hematocrit is >60 mg/dl,the test may not accurately detect significant hypoglycemia,and testing in the Laboratory should be considered if clinically indicated. Blood specimen (specimen) 06/12/2020 10:49 PM CDT 06/12/2020 10:49 PM CDT Hernan Cordero MD LAB POCT ORDERABLES - DEVIC E Final Result [facility] [address] Department of [place] [address] * POCT glucose (06/12/2020 9:52 PM CDT) Glucose, POC 117 70 - 140 mg/dL [facility] Comment: For Glucose values <35 mg/dl when Hematocrit is >60 mg/dl,the test may not accurately detect significant hypoglycemia,and testing in the Laboratory should be considered if clinically indicated. Blood specimen (specimen) 06/12/2020 9:52 PM CDT 06/12/2020 9:52 PM CDT Hernan Cordero MD LAB POCT ORDERABLES - DEVIC E Final Result Performing Organization Address [facility] Co de Phone Number [facility] [address] Department [employer] [address] * POCT glucose (06/12/2020 8:59 PM CDT) Glucose, POC 123 70 - 140 mg/dL [facility] Comment: For Glucose values <35 mg/dl when Hematocrit is >60 mg/dl,the test may not accurately detect significant hypoglycemia,and testing in the Laboratory should be considered if clinically indicated. Blood specimen (specimen) 06/12/2020 8:59 PM CDT 06/12/2020 8:59 PM CDT Hernan Cordero MD LAB POCT ORDERABLES - DEVIC E Final Result Performing Organization Address [facility] Co de Phone Number [facility] [address] [facility] [employer] [address] * (ABNORMAL) Potassium (06/12/2020 7:53 PM CDT) [facility] Potassium, pl 5.2(H) 3.3 - 4.9 mmol/L [facility] Blood specimen (specimen) 06/12/2020 7:53 PM CDT 06/12/2020 7:59 PM CDT Stacey Haskins [employer] LAB BLOOD ORDERABLES Final Result Performing Organization Address [facility] Co de Phone Number [facility] [address] Department [employer] [place], [place] [id number] * POCT glucose (06/12/2020 7:50 PM CDT) Glucose, POC 128 70 - 140 mg/dL [facility] Comment: For Glucose values <35 mg/dl when Hematocrit is >60 mg/dl,the test may not accurately detect significant hypoglycemia,and testing in the Laboratory should be considered if clinically indicated. Blood specimen (specimen) 06/12/2020 7:50 PM CDT 06/12/2020 7:50 PM CDT Hernan Cordero MD LAB POCT ORDERABLES - DEVIC E Final Result Performing Organization Address [facility] de Phone Number [facility] [address] Department [employer] [place], [place] [id number] * POCT glucose (06/12/2020 6:52 PM CDT) Glucose, POC 115 70 - 140 mg/dL [facility] Comment: For Glucose values <35 mg/dl when Hematocrit is >60 mg/dl,the test may not accurately detect significant hypoglycemia,and testing in the Laboratory should be considered if clinically indicated. Blood specimen (specimen) 06/12/2020 6:52 PM CDT 06/12/2020 6:52 PM CDT Hernan Cordero MD LAB POCT ORDERABLES - DEVIC E Final Result Performing Organization Address [facility] de Phone Number [facility] [address] Department of [employer] [address] * Critical Care (06/12/2020 5:47 PM CDT) [...] plan with the ICU team and other medical/technical services consultant staff, making frequent assessments and decisions [...] * POCT glucose (06/12/2020 5:37 PM CDT) Glucose, POC 104 70 - 140 mg/dL [facility] Comment: For Glucose values <35 mg/dl when Hematocrit is >60 mg/dl,the test may not accurately detect significant hypoglycemia,and testing in the Laboratory should be considered if clinically indicated. Blood specimen (specimen) 06/12/2020 5:37 PM CDT 06/12/2020 5:37 PM CDT us Hernan Cordero MD LAB POCT ORDERABLES - DEVIC E Final Result Performing Organization Address [facility] Co de Phone Number [facility] [address] Department [employer] [address] * (ABNORMAL) Potassium (06/12/2020 4:33 PM CDT) [facility] Potassium, pl 5.1(H) 3.3 - 4.9 mmol/L [facility] Blood specimen (specimen) 06/12/2020 4:33 PM CDT 06/12/2020 4:33 PM CDT Stacey Haskins SUPER[employer] LAB BLOOD ORDERABLES Final Result Performing Organization Address [facility] Co de Phone Number [facility] [address] Department [employer] [place], [place] [id number] * POCT glucose (06/12/2020 4:31 PM CDT) [facility] Glucose, POC 89 70 - 140 mg/dL [facility] Comment: For Glucose values <35 mg/dl when Hematocrit is >60 mg/dl,the test may not accurately detect significant hypoglycemia,and testing in the Laboratory should be considered if clinically indicated. Blood specimen (specimen) 06/12/2020 4:31 PM CDT 06/12/2020 4:31 PM CDT Hernan Cordero MD LAB POCT ORDERABLES - DEVIC E Final Result Performing Organization Address [facility] Co de Phone Number [facility] [address] Department of [employer] [place], [place] [id number] * (ABNORMAL) Blood gas, arterial (06/12/2020 4:27 PM CDT) [facility] Signature pH, Art 7.33(L) 7.35 - 7.45 [facility] PCO2, Arterial 42 35 - 45 mmHg [facility] PO2, Arterial 76(L) 83 - 108 mmHg [facility] HCO3 Art (Calculated) 22 20 - 30 mmol/L [facility] BE, art -4 mmol/L [facility] Comment: Interpretive Data No Reference Range Established Current Interpretive Data was last revised on 2017 O2 Sat Art (Calculated) 94 94 - 98 % [facility] Blood specimen (specimen) 06/12/2020 4:27 PM CDT 06/12/2020 4:33 PM CDT Result [facility] Stacey Haskins SUPER[employer] LAB BLOOD ORDERABLES Final Result Performing Organization Address [facility] Co de Phone Number [facility] [address] Department [employer] [place], [place] [id number] * POCT glucose (06/12/2020 3:51 PM CDT) Glucose, POC 109 70 - 140 mg/dL [facility] Comment: For Glucose values <35 mg/dl when Hematocrit is >60 mg/dl,the test may not accurately detect significant hypoglycemia,and testing in the Laboratory should be considered if clinically indicated. Blood specimen (specimen) 06/12/2020 3:51 PM CDT 06/12/2020 3:51 PM CDT Result [facility] Hernan Cordero MD LAB POCT ORDERABLES - DEVIC E Final Result Performing Organization Address [facility] Co de Phone Number [facility] [address] Department [employer] [address] * (ABNORMAL) POCT glucose (06/12/2020 2:52 PM CDT) Glucose, POC 142(H) 70 - 140 mg/dL [facility] Comment: For Glucose values <35 mg/dl when Hematocrit is >60 mg/dl,the test may not accurately detect significant hypoglycemia,and testing in the Laboratory should be considered if clinically indicated. Blood specimen (specimen) 06/12/2020 2:52 PM CDT 06/12/2020 2:52 PM CDT Result [facility] Hernan Cordero MD LAB POCT ORDERABLES - DEVIC E Final Result [facility] [address] Department [place] [address] * XR Chest 1 View - Portable (06/12/2020 1:45 PM CDT) Anatomical Region Laterality Modality Body, Chest N/A Computed Radiogr aphy 06/12/2020 1:49 PM CDT Impressions 06/12/2020 1:49 PM CDT Endotracheal tube terminates in the distal trachea. Sternotomy wires are present and aligned. ??A right Zurich-Scott catheter is present with its tip in [...] wires are present and aligned. A right Zurich-Scott catheter is present with its tip in [...] signed by: Red Pradhan M.D. Stacey Haskins SUPER[employer] IMG XR PROCEDURES Final Re sult * (ABNORMAL) POCT glucose (06/12/2020 1:41 PM CDT) Glucose, POC 190(H) 70 - 140 mg/dL [facility] Comment: For Glucose values <35 mg/dl when Hematocrit is >60 mg/dl,the test may not accurately detect significant hypoglycemia,and testing in the Laboratory should be considered if clinically indicated. Blood specimen (specimen) 06/12/2020 1:41 PM CDT 06/12/2020 1:41 PM CDT Hernan Cordero MD LAB POCT ORDERABLES - DEVIC E Final Result Performing Organization Address [facility] Co de Phone Number [facility] [address] [facility] [employer] [address] * (ABNORMAL) POCT glucose (06/12/2020 1:17 PM CDT) Glucose, POC 183(H) 70 - 140 mg/dL [facility] Comment: For Glucose values <35 mg/dl when Hematocrit is >60 mg/dl,the test may not accurately detect significant hypoglycemia,and testing in the Laboratory should be considered if clinically indicated. Blood specimen (specimen) 06/12/2020 1:17 PM CDT 06/12/2020 1:17 PM CDT Hernan Cordero MD LAB POCT ORDERABLES - DEVIC E Final Result Performing Organization Address [facility]/ZIP Co de Phone Number [facility] [address] Department [place] [address] * eGFR (06/12/2020 1:12 PM CDT) eGFR 32 mL/min/1.7 3 m2 [facility] Comment: Interpretive Data Reference Interval Normal ?>/= [...] 06/12/2020 1:26 PM CDT us Stacey Haskins NP LAB BLOOD ORDERABLES Final Result [facility] [address] Department [place] [address] * (ABNORMAL) aPTT (06/12/2020 1:12 PM CDT) aPTT 42(H) 27 - 37 sec [facility] Comment: Interpretive Data Therapeutic heparin range: 60.0 - 94.0 seconds. Based on correlation with therapeutic heparin activity range of 0.3-0.7 Units/mL. Current interpretive data was last revised on 2020. Blood specimen (specimen) 06/12/2020 1:12 PM CDT 06/12/2020 1:26 PM CDT Stacey Parkerestela Haskins SUPER[employer] LAB BLOOD ORDERABLES Final Result Performing Organization Address [facility] de Phone Number [facility] [address] [employer] [address] * (ABNORMAL) Protime-INR (06/12/2020 1:12 PM CDT) Pathologist [facility] PT 15.0(H) 9.5 - 13.6 sec [facility] INR 1.4(H) 0.9 - 1.2 [facility] Comment: Interpretive data Oral anticoagulant therapeutic ranges: Venous thromboembolism prophylaxis or treatment: 2.0-3.0 CARDIOLOGY Standard range: 2.0-3.0 High-intensity range: 2.5-3.5 Refer to indication-specific guidelines for appropriate target ranges for prosthetic heart valve replacement. Current interpretive data was last revised on 2019. Blood specimen (specimen) 06/12/2020 1:12 PM CDT 06/12/2020 1:26 PM CDT Stacey Parkerestela Haskins SUPERVIS[employer] LAB BLOOD ORDERABLES Final Result Performing Organization Address [facility] de Phone Number [facility] [address] [facility] [employer] [address] * (ABNORMAL) CBC without differential (06/12/2020 1:12 PM CDT) Pathologist [facility] WBC 9.0 3.8 - 9.9 K/cumm [facility] Hgb 9.7(L) 13.0 - 17.5 g/dL [facility] Hct 30.1(L) 38.9 - 50.3 % [facility] Plt 98(L) 150 - 400 K/cumm [facility] MPV 9.9 9.1 - 12.3 fL [facility] RBC 3.41(L) 4.30 - 5.80 M/cumm [facility] MCV 88.3 81.3 - 96.4 fL [facility] MCH 28.4 27.1 - 33.3 pg [facility] MCHC 32.2(L) 32.3 - 35.7 g/dL [facility] RDW CV 15.2(H) 11.1 - 14.9 % [facility] RDW SD 49.1(H) 35.7 - 48.1 fL [facility] NRBC abs 0.00 0.00 - 0.01 K/cumm [facility] Blood specimen (specimen) 06/12/2020 1:12 PM CDT 06/12/2020 1:26 PM CDT Stacey Haskins SUPER[employer] LAB BLOOD ORDERABLES Final Result Performing Organization Address [facility] Co de Phone Number [facility] [address] Department [place] [address] * (ABNORMAL) Blood gas, arterial (06/12/2020 1:12 PM CDT) pH, Art 7.30(L) 7.35 - 7.45 [facility] PCO2, Arterial 39 35 - 45 mmHg [facility] PO2, Arterial 116(H) 83 - 108 mmHg [facility] HCO3 Art (Calculated) 19(L) 20 - 30 mmol/L [facility] BE, art -7 mmol/L [facility] Comment: Interpretive Data No Reference Range Established Current Interpretive Data was last revised on 2017 O2 Sat Art (Calculated) 98 94 - 98 % [facility] Blood specimen (specimen) 06/12/2020 1:12 PM CDT 06/12/2020 1:25 PM CDT Stacey Haskins SUPER[employer] LAB BLOOD ORDERABLES Final Result Performing Organization Address [facility] Co de Phone Number [facility] [address] [facility] [employer] [address] * Calcium, ionized (06/12/2020 1:12 PM CDT) [facility] Calcium, Ionized 5.11 4.40 - 5.40 mg/dL [facility] Blood specimen (specimen) 06/12/2020 1:12 PM CDT 06/12/2020 1:25 PM CDT Stacey Haskins SUPER[employer] LAB BLOOD ORDERABLES Final Result [facility] [address] [facility] [employer] [address] * (ABNORMAL) Magnesium (06/12/2020 1:12 PM CDT) [facility] Magnesium 2.9(H) 1.4 - 2.5 mg/dL [facility] Blood specimen (specimen) 06/12/2020 1:12 PM CDT 06/12/2020 1:26 PM CDT Stacey Haskins SUPER[employer] LAB BLOOD ORDERABLES Final Result [facility] [address] [facility] [employer] [address] * (ABNORMAL) Basic metabolic panel (06/12/2020 1:12 PM CDT) [facility] Sodium 137 135 - 145 mmol/L [facility] Potassium, pl 4.6 3.3 - 4.9 mmol/L [facility] Chloride 108 97 - 110 mmol/L [facility] CO2 20(L) 22 - 32 mmol/L [facility] Anion gap 9 2 - 15 mmol/L [facility] BUN 24 8 - 25 mg/dL [facility] Creatinine 2.08(H) 0.80 - 1.30 mg/dL [facility] Glucose 215(H) 70 - 199 mg/dL [facility] Comment: Interpretive Data Fasting glucose >/= 126 [...] 2017. Calcium 8.8 8.5 - 10.3 mg/dL [facility] Blood specimen (specimen) 06/12/2020 1:12 PM CDT 06/12/2020 1:26 PM CDT Stacey Haskins SUPER[employer] LAB BLOOD ORDERABLES Final Result Performing Organization Address [facility]/ZIP Co de Phone Number [facility] [address] Department of [employer] [address] * (ABNORMAL) Phosphorus (06/12/2020 1:12 PM CDT) [facility] Phosphorus, pl 1.7(L) 2.3 - 4.5 mg/dL [facility] Blood specimen (specimen) 06/12/2020 1:12 PM CDT 06/12/2020 1:26 PM CDT Stacey Haskins SUPER[employer] LAB BLOOD ORDERABLES Final Result [facility] [address] Department of [employer] [address] * (ABNORMAL) POC Blood Gas and Chemistries, Arterial - (06/12/2020 12:41 PM CDT) Pathologist [facility] [place] pH, Art POC 7.34(L) 7.35 - 7.45 [facility] pCO2, Art POC 37 35 - 45 mmHg [facility] pO2, Art POC 291(H) 80 - 108 mmHg [facility] Na, POC 135 135 - 145 mmol/L [facility] K POC 4.9 3.3 - 4.9 mmol/L [facility] Comment: Interpretive Data Unable to assess hemolysis. ??Invitro hemolysis causes falsely elevated potassium. Current Interpretive Data was last revised on 2019. Cl, POC 114(H) 97 - 110 mmol/L [facility] Ionized Ca, POC 3.80(L) 4.40 - 5.40 mg/dL [facility] Glucose, POC 272(H) 70 - 199 mg/dL [facility] Lactate, POC 1.1 0.0 - 2.0 mmol/L [facility] O2Hb, Art POC 97.2(H) 90.0 - 95.0 % [facility] Carboxhgb fract 0.8 0.0 - 2.9 % [facility] Methemoglobin 0.8 0.0 - 1.9 % [facility] HHb, POC 1.1 0.0 - 5.0 % [facility] SO2 (nabila) arterial 99(H) 90 - 95 % [facility] Total CO2, Art POC 21(L) 22 - 32 mmol/L [facility] BE, art, POC -5.2(L) -2.0 - 2.0 mmol/L [facility] HCO3, Art POC 21 20 - 30 mmol/L [facility] Hct, POC 27.0(L) 38.9 - 50.3 % [facility] Total Hb, POC 9.0(L) 13.0 - 17.5 g/dL [facility] Blood specimen (specimen) 06/12/2020 12:41 PM CDT 06/12/2020 12:41 PM CDT us Hernan Cordero MD LAB POCT ORDERABLES - DEVIC E Final Result [facility] [address] Department of Laboratories [place], [place] [phone] * (ABNORMAL) Protime-INR (06/12/2020 12:11 PM CDT) PT 16.8(H) 9.5 - 13.6 sec [facility] INR 1.5(H) 0.9 - 1.2 [facility] Comment: Interpretive data Oral anticoagulant therapeutic ranges: Venous thromboembolism prophylaxis or treatment: 2.0-3.0 CARDIOLOGY Standard range: 2.0-3.0 High-intensity range: 2.5-3.5 Refer to indication-specific guidelines for appropriate target ranges for prosthetic heart valve replacement. Current interpretive data was last revised on 2019. Blood specimen (specimen) 06/12/2020 12:11 PM CDT 06/12/2020 12:14 PM CDT Hernan Cordero MD LAB BLOOD ORDERABLES Final Result Performing Organization Address City/[facility]/ZIP Co de Phone Number [facility] [address] [employer] [address] * (ABNORMAL) Fibrinogen (06/12/2020 12:11 PM CDT) Fibrinogen 441(H) 170 - 400 mg/dL [facility] Blood specimen (specimen) 06/12/2020 12:11 PM CDT 06/12/2020 12:14 PM CDT Hernan Cordero MD LAB BLOOD ORDERABLES Final Result Performing Organization Address City/[facility] Co de Phone Number [facility] [address] Department [employer] [address] * (ABNORMAL) aPTT (06/12/2020 12:11 PM CDT) aPTT 73(H) 27 - 37 sec [facility] Comment: Interpretive Data Therapeutic heparin range: 60.0 - 94.0 seconds. Based on correlation with therapeutic heparin activity range of 0.3-0.7 Units/mL. Current interpretive data was last revised on 2020. Blood specimen (specimen) 06/12/2020 12:11 PM CDT 06/12/2020 12:14 PM CDT Hernan Cordero MD LAB BLOOD ORDERABLES Final Result Performing Organization Address [facility]/ZIP Co de Phone Number [facility] [address] [employer] [address] * (ABNORMAL) CBC without differential (06/12/2020 12:11 PM CDT) WBC 8.4 3.8 - 9.9 K/cumm [facility] Hgb 9.0(L) 13.0 - 17.5 g/dL [facility] Hct 27.4(L) 38.9 - 50.3 % [facility] Plt 91(L) 150 - 400 K/cumm [facility] MPV 9.7 9.1 - 12.3 fL [facility] RBC 3.12(L) 4.30 - 5.80 M/cumm [facility] MCV 87.8 81.3 - 96.4 fL [facility] MCH 28.8 27.1 - 33.3 pg [facility] MCHC 32.8 32.3 - 35.7 g/dL [facility] RDW CV 15.1(H) 11.1 - 14.9 % [facility] RDW SD 48.3(H) 35.7 - 48.1 fL [facility] NRBC abs 0.00 0.00 - 0.01 K/cumm [facility] Blood specimen (specimen) 06/12/2020 12:11 PM CDT 06/12/2020 12:14 PM CDT Hernan Cordero MD LAB BLOOD ORDERABLES Final Result Performing Organization Address City/[facility]/ZIP Co de Phone Number [facility] [address] Department [employer] [address] * (ABNORMAL) POC Blood Gas and Chemistries, Arterial - (06/12/2020 12:10 PM CDT) pH, Art POC 7.41 7.35 - 7.45 [facility] pCO2, Art POC 37 35 - 45 mmHg [facility] pO2, Art POC 231(H) 80 - 108 mmHg [facility] Na, POC 135 135 - 145 mmol/L [facility] K POC 6.1(H) 3.3 - 4.9 mmol/L [facility] Comment: Interpretive Data Unable to assess hemolysis. ??Invitro hemolysis causes falsely elevated potassium. Current Interpretive Data was last revised on 2019. Cl, POC 111(H) 97 - 110 mmol/L [facility] Ionized Ca, POC 4.11(L) 4.40 - 5.40 mg/dL [facility] Glucose, POC 160 70 - 199 mg/dL [facility] Lactate, POC 1.1 0.0 - 2.0 mmol/L [facility] O2Hb, Art POC 97.5(H) 90.0 - 95.0 % [facility] Carboxhgb fract 1.0 0.0 - 2.9 % [facility] Methemoglobin 0.5 0.0 - 1.9 % [facility] HHb, POC 1.0 0.0 - 5.0 % [facility] SO2 (nabila) arterial 99(H) 90 - 95 % [facility] Total CO2, Art POC 25 22 - 32 mmol/L [facility] BE, art, POC -0.8 -2.0 - 2.0 mmol/L [facility] HCO3, Art POC 24 20 - 30 mmol/L [facility] Hct, POC 28.0(L) 38.9 - 50.3 % [facility] Total Hb, POC 9.2(L) 13.0 - 17.5 g/dL [facility] Blood specimen (specimen) 06/12/2020 12:10 PM CDT 06/12/2020 12:10 PM CDT us Hernan Cordero MD LAB POCT ORDERABLES - DEVIC E Final Result [facility] [address] Department of [place] [address] * (ABNORMAL) POC Blood Gas and Chemistries, Arterial - (06/12/2020 11:32 AM CDT) [facility] pH, Art POC 7.34(L) 7.35 - 7.45 [facility] pCO2, Art POC 41 35 - 45 mmHg [facility] pO2, Art POC 295(H) 80 - 108 mmHg [facility] Na, POC 136 135 - 145 mmol/L [facility] K POC 6.2(C) 3.3 - 4.9 mmol/L [facility] Comment: Interpretive Data Unable to assess hemolysis. ??Invitro hemolysis causes falsely elevated potassium. Current Interpretive Data was last revised on 2019. Cl, POC 110 97 - 110 mmol/L [facility] Ionized Ca, POC 4.07(L) 4.40 - 5.40 mg/dL [facility] Glucose, POC 160 70 - 199 mg/dL [facility] Lactate, POC 0.9 0.0 - 2.0 mmol/L [facility] O2Hb, Art POC 97.1(H) 90.0 - 95.0 % [facility] Carboxhgb fract 0.7 0.0 - 2.9 % [facility] Methemoglobin 0.8 0.0 - 1.9 % [facility] HHb, POC 1.4 0.0 - 5.0 % [facility] SO2 (nabila) arterial 99(H) 90 - 95 % [facility] Total CO2, Art POC 23 22 - 32 mmol/L [facility] BE, art, POC -3.5(L) -2.0 - 2.0 mmol/L [facility] HCO3, Art POC 22 20 - 30 mmol/L [facility] Hct, POC 28.0(L) 38.9 - 50.3 % [facility] Total Hb, POC 9.3(L) 13.0 - 17.5 g/dL [facility] Blood specimen (specimen) 06/12/2020 11:32 AM CDT 06/12/2020 11:32 AM CDT us Hernan Cordero MD LAB POCT ORDERABLES - DEVIC E Final Result [facility] [address] Department [place] [address] [phone] * POC Activated Clotting Time, High Range (06/12/2020 11:13 AM CDT) Pathologist [facility] [place] ACT 106 87 - 138 sec [facility] Blood specimen (specimen) 06/12/2020 11:13 AM CDT 06/12/2020 11:13 AM CDT Hernan Cordero MD LAB BLOOD ORDERABLES Final Result [facility] [address] Department [place] [address] * (ABNORMAL) POC Blood Gas and Chemistries, Arterial - (06/12/2020 11:08 AM CDT) [facility] pH, Art POC 7.39 7.35 - 7.45 [facility] pCO2, Art POC 40 35 - 45 mmHg [facility] pO2, Art POC 263(H) 80 - 108 mmHg [facility] Na, POC 133(L) 135 - 145 mmol/L [facility] K POC 7.3(C) 3.3 - 4.9 mmol/L [facility] Comment: Interpretive Data Unable to assess hemolysis. ??Invitro hemolysis causes falsely elevated potassium. Current Interpretive Data was last revised on 2019. Cl, POC 107 97 - 110 mmol/L [facility] Ionized Ca, POC 4.47 4.40 - 5.40 mg/dL [facility] Glucose, POC 179 70 - 199 mg/dL [facility] Lactate, POC 1.0 0.0 - 2.0 mmol/L [facility] O2Hb, Art POC 97.9(H) 90.0 - 95.0 % [facility] Carboxhgb fract 0.0 0.0 - 2.9 % [facility] Methemoglobin 0.6 0.0 - 1.9 % [facility] HHb, POC 1.5 0.0 - 5.0 % [facility] SO2 (nabila) arterial 98(H) 90 - 95 % [facility] Total CO2, Art POC 25 22 - 32 mmol/L [facility] BE, art, POC -0.7 -2.0 - 2.0 mmol/L [facility] HCO3, Art POC 24 20 - 30 mmol/L [facility] Hct, POC 26.0(L) 38.9 - 50.3 % [facility] Total Hb, POC 8.8(L) 13.0 - 17.5 g/dL [facility] Blood specimen (specimen) 06/12/2020 11:08 AM CDT 06/12/2020 11:08 AM CDT Hernan Cordero MD LAB POCT ORDERABLES - DEVIC E Final Result Performing Organization Address [facility]/ZIP Co de Phone Number [facility] [address] Department of [employer] [address] * Transfuse RBC (06/12/2020 10:43 AM CDT) Blood specimen (specimen) Red Kamara MD BLOOD TRANSFUSION [facility] Final Result Performing Organization Address [facility]/ZIP Co de Phone Number [facility] [address] Department [employer] [place] [address] * (ABNORMAL) POC Blood Gas and Chemistries, Venous - (06/12/2020 10:29 AM CDT) pH, Jame POC 7.34 7.32 - 7.45 [facility] pCO2, jame POC 49 40 - 50 mmHg [facility] pO2, jame POC 57(H) 35 - 42 mmHg [facility] Na, POC 134(L) 135 - 145 mmol/L [facility] K POC 6.2(C) 3.3 - 4.9 mmol/L [facility] Comment: Interpretive Data Unable to assess hemolysis. ??Invitro hemolysis causes falsely elevated potassium. Current Interpretive Data was last revised on 2019. Cl, POC 108 97 - 110 mmol/L [facility] Ionized Ca, POC 4.52 4.40 - 5.40 mg/dL [facility] Glucose, POC 136 70 - 199 mg/dL [facility] Lactate, POC 0.7 0.0 - 2.0 mmol/L [facility] O2Hb, Jame POC 86.3(L) 90.0 - 95.0 % [facility] Carboxhgb fract 1.1 0.0 - 2.9 % [facility] Methemoglobin 0.2 0.0 - 1.9 % [facility] HHb, POC 12.4(H) 0.0 - 5.0 % [facility] O2 Sat, Jame POC (Nabila) 87(H) 68 - 77 % [facility] Total CO2, jame POC 28 22 - 32 mmol/L [facility] Base excess, jame POC 0.0 mmol/L [facility] HCO3, Jame POC 25 20 - 30 mmol/L [facility] Hct, POC 23.0(L) 38.9 - 50.3 % [facility] Total Hb, POC 7.5(L) 13.0 - 17.5 g/dL [facility] Blood specimen (specimen) 06/12/2020 10:29 AM CDT 06/12/2020 10:29 AM CDT us Hernan Cordero MD LAB POCT ORDERABLES - DEVIC E Final Result Performing Organization Address City/[facility]/ZIP Co de Phone Number [facility] [address] [employer] [place], [place] [phone] * Transfuse RBC (06/12/2020 10:28 AM CDT) Blood specimen (specimen) us Red Kamara MD BLOOD TRANSFUSION [facility] Final Result [facility] [address] [place] [place] [address] * (ABNORMAL) POC Blood Gas and Chemistries, Arterial - (06/12/2020 10:25 AM CDT) [facility] Signature pH, Art POC 7.36 7.35 - 7.45 [facility] pCO2, Art POC 44 35 - 45 mmHg [facility] pO2, Art POC 417(H) 80 - 108 mmHg [facility] Na, POC 133(L) 135 - 145 mmol/L [facility] K POC 6.3(C) 3.3 - 4.9 mmol/L [facility] Comment: Interpretive Data Unable to assess hemolysis. ??Invitro hemolysis causes falsely elevated potassium. Current Interpretive Data was last revised on 2019. Cl, POC 110 97 - 110 mmol/L [facility] Ionized Ca, POC 4.40 4.40 - 5.40 mg/dL [facility] Glucose, POC 137 70 - 199 mg/dL [facility] Lactate, POC 0.7 0.0 - 2.0 mmol/L [facility] O2Hb, Art POC 98.8(H) 90.0 - 95.0 % [facility] Carboxhgb fract 1.1 0.0 - 2.9 % [facility] Methemoglobin 0.1 0.0 - 1.9 % [facility] HHb, POC 0.0 0.0 - 5.0 % [facility] SO2 (nabila) arterial 100(H) 90 - 95 % [facility] Total CO2, Art POC 26 22 - 32 mmol/L [facility] BE, art, POC -0.8 -2.0 - 2.0 mmol/L [facility] HCO3, Art POC 24 20 - 30 mmol/L [facility] Hct, POC 23.0(L) 38.9 - 50.3 % [facility] Total Hb, POC 7.7(L) 13.0 - 17.5 g/dL [facility] Blood specimen (specimen) 06/12/2020 10:25 AM CDT 06/12/2020 10:25 AM CDT us Hernan Cordero MD LAB POCT ORDERABLES - DEVIC E Final Result [facility] [address] Department of [place] [address] * (ABNORMAL) POC Activated Clotting Time, High Range (06/12/2020 10:11 AM CDT) [facility] Signature ACT 501(H) 87 - 138 sec [facility] Blood specimen (specimen) 06/12/2020 10:11 AM CDT 06/12/2020 10:11 AM CDT Hernan Cordero MD LAB BLOOD ORDERABLES Final Result Performing Organization Address [facility]/ZIP Co de Phone Number [facility] [address] [facility] [employer] [address] * (ABNORMAL) POC Activated Clotting Time, High Range (06/12/2020 9:31 AM CDT) [facility] ACT 457(H) 87 - 138 sec [facility] Blood specimen (specimen) 06/12/2020 9:31 AM CDT 06/12/2020 9:31 AM CDT Hernan Cordero MD LAB BLOOD ORDERABLES Final Result Performing Organization Address [facility] Co de Phone Number [facility] [address] [facility] [employer] [address] * (ABNORMAL) POC Blood Gas and Chemistries, Arterial - (06/12/2020 9:08 AM CDT) [facility] pH, Art POC 7.38 7.35 - 7.45 [facility] pCO2, Art POC 48(H) 35 - 45 mmHg [facility] pO2, Art POC 296(H) 80 - 108 mmHg [facility] Na, POC 136 135 - 145 mmol/L [facility] K POC 5.2(H) 3.3 - 4.9 mmol/L [facility] Comment: Interpretive Data Unable to assess hemolysis. ??Invitro hemolysis causes falsely elevated potassium. Current Interpretive Data was last revised on 2019. Cl, POC 111(H) 97 - 110 mmol/L [facility] Ionized Ca, POC 4.81 4.40 - 5.40 mg/dL [facility] Glucose, POC 124 70 - 199 mg/dL [facility] Lactate, POC 0.5 0.0 - 2.0 mmol/L [facility] O2Hb, Art POC 98.3(H) 90.0 - 95.0 % [facility] Carboxhgb fract 1.2 0.0 - 2.9 % [facility] Methemoglobin 0.4 0.0 - 1.9 % [facility] HHb, POC 0.1 0.0 - 5.0 % [facility] SO2 (nabila) arterial 100(H) 90 - 95 % [facility] Total CO2, Art POC 30 22 - 32 mmol/L [facility] BE, art, POC 2.5(H) -2.0 - 2.0 mmol/L [facility] HCO3, Art POC 27 20 - 30 mmol/L [facility] Hct, POC 24.0(L) 38.9 - 50.3 % [facility] Total Hb, POC 8.1(L) 13.0 - 17.5 g/dL [facility] Blood specimen (specimen) 06/12/2020 9:08 AM CDT 06/12/2020 9:08 AM CDT Hernan Cordero MD LAB POCT ORDERABLES - DEVIC E Final Result [facility] [address] [place] [place] [address] * (ABNORMAL) POC Activated Clotting Time, High Range (06/12/2020 8:46 AM CDT) ACT 550(H) 87 - 138 sec [facility] Blood specimen (specimen) 06/12/2020 8:46 AM CDT 06/12/2020 8:46 AM CDT Hernan Cordero MD LAB BLOOD ORDERABLES Final Result [facility] [address] Department [employer] [address] * (ABNORMAL) POC Activated Clotting Time, High Range (06/12/2020 8:28 AM CDT) ACT 438(H) 87 - 138 sec [facility] Blood specimen (specimen) 06/12/2020 8:28 AM CDT 06/12/2020 8:28 AM CDT Hernan Cordero MD LAB BLOOD ORDERABLES Final Result Performing Organization Address [facility]/ZIP Co de Phone Number [facility] [address] [place] [place] [address] * POC Activated Clotting Time, High Range (06/12/2020 6:55 AM CDT) [facility] ACT 91 87 - 138 sec [facility] Blood specimen (specimen) 06/12/2020 6:55 AM CDT 06/12/2020 6:55 AM CDT Hernan Cordero MD LAB BLOOD ORDERABLES Final Result Performing Organization Address [facility] de Phone Number [facility] [address] [place] [place] [address] * eGFR (06/12/2020 3:21 AM CDT) [facility] eGFR 30 mL/min/1.7 3 m2 [facility] Comment: Interpretive Data Reference Interval Normal ?>/= [...] 3:21 AM CDT 06/12/2020 3:46 AM CDT us Cy Krause MD LAB BLOOD ORDERABLES Final Res ult [facility] [address] Department [place] [address] * (ABNORMAL) Basic metabolic panel (06/12/2020 3:21 AM CDT) Sodium 139 135 - 145 mmol/L [facility] Potassium, pl 4.0 3.3 - 4.9 mmol/L [facility] Chloride 105 97 - 110 mmol/L [facility] CO2 23 22 - 32 mmol/L [facility] Anion gap 11 2 - 15 mmol/L [facility] BUN 26(H) 8 - 25 mg/dL [facility] Creatinine 2.20(H) 0.80 - 1.30 mg/dL [facility] Glucose 94 70 - 199 mg/dL [facility] Comment: Interpretive Data Fasting glucose >/= 126 [...] 2017. Calcium 8.7 8.5 - 10.3 mg/dL [facility] Blood specimen (specimen) 06/12/2020 3:21 AM CDT 06/12/2020 3:46 AM CDT Cy Krause MD LAB BLOOD ORDERABLES Final Res ult Performing Organization Address [facility] Co de Phone Number [facility] [address] Department of [employer] [address] * (ABNORMAL) aPTT (06/12/2020 3:21 AM CDT) Pathologist [facility] [place] aPTT 75(H) 27 - 37 sec [facility] Comment: Interpretive Data Therapeutic heparin range: 60.0 - 94.0 seconds. Based on correlation with therapeutic heparin activity range of 0.3-0.7 Units/mL. Current interpretive data was last revised on 2020. Blood specimen (specimen) 06/12/2020 3:21 AM CDT 06/12/2020 3:47 AM CDT us Hernan Cordero MD LAB BLOOD ORDERABLES Final Result Performing Organization Address [facility] Co de Phone Number [facility] [address] Department [employer] [address] * (ABNORMAL) CBC without differential (06/12/2020 3:21 AM CDT) [facility] WBC 5.1 3.8 - 9.9 K/cumm [facility] Hgb 8.2(L) 13.0 - 17.5 g/dL [facility] Hct 25.5(L) 38.9 - 50.3 % [facility] Plt 148(L) 150 - 400 K/cumm [facility] MPV 10.1 9.1 - 12.3 fL [facility] RBC 2.88(L) 4.30 - 5.80 M/cumm [facility] MCV 88.5 81.3 - 96.4 fL [facility] MCH 28.5 27.1 - 33.3 pg [facility] MCHC 32.2(L) 32.3 - 35.7 g/dL [facility] RDW CV 15.5(H) 11.1 - 14.9 % [facility] RDW SD 49.5(H) 35.7 - 48.1 fL [facility] NRBC abs 0.00 0.00 - 0.01 K/cumm [facility] Blood specimen (specimen) 06/12/2020 3:21 AM CDT 06/12/2020 3:46 AM CDT Narrative [facility] - 06/12/2020 3:56 AM CDT Until heparin is discontinued. us Jono LLANOS LAB BLOOD ORDERABLES Final R esult [facility] [address] Department [place] [address] * eGFR (06/11/2020 11:41 AM CDT) eGFR 31 mL/min/1.7 3 m2 [facility] Comment: Interpretive Data Reference Interval Normal ?>/= [...] 11:41 AM CDT 06/11/2020 12:54 PM CDT Cy Krause MD LAB BLOOD ORDERABLES Final Res ult Performing Organization Address [facility]/ZIP Co de Phone Number [facility] [address] [employer] [place], [place] [phone] * Type and screen (06/11/2020 11:41 AM CDT) Pathologist [facility] [place] ABO Rh A Positive [facility] Liana, indirect Negative [facility] Blood specimen (specimen) 06/11/2020 11:41 AM CDT 06/11/2020 12:59 PM CDT Narrative [facility] - 06/11/2020 1:29 PM CDT Has the patient had Daratumumab or Isatuximab in the past 6 months?->Unknown Hernan Cordero MD LAB BLOOD BANK TEST ORDERAB LES Final Result Performing Organization Address [facility] de Phone Number [facility] [address] [employer] [place], [place] [phone] * (ABNORMAL) Basic metabolic panel (06/11/2020 11:41 AM CDT) Pathologist [facility] [place] Sodium 139 135 - 145 mmol/L [facility] Potassium, pl 4.9 3.3 - 4.9 mmol/L [facility] Chloride 105 97 - 110 mmol/L [facility] CO2 23 22 - 32 mmol/L [facility] Anion gap 11 2 - 15 mmol/L [facility] BUN 27(H) 8 - 25 mg/dL [facility] Creatinine 2.17(H) 0.80 - 1.30 mg/dL [facility] Glucose 81 70 - 199 mg/dL [facility] Comment: Interpretive Data Fasting glucose >/= 126 [...] 2017. Calcium 9.0 8.5 - 10.3 mg/dL [facility] Blood specimen (specimen) 06/11/2020 11:41 AM CDT 06/11/2020 12:36 PM CDT Cy Krause MD LAB BLOOD ORDERABLES Final Res ult Performing Organization Address [facility]/ZIP Co de Phone Number [facility] [address] [place] [address] * (ABNORMAL) aPTT (06/11/2020 11:41 AM CDT) aPTT 72(H) 27 - 37 sec [facility] Comment: Interpretive Data Therapeutic heparin range: 60.0 - 94.0 seconds. Based on correlation with therapeutic heparin activity range of 0.3-0.7 Units/mL. Current interpretive data was last revised on 2020. Blood specimen (specimen) 06/11/2020 11:41 AM CDT 06/11/2020 12:36 PM CDT us Hernan Cordero MD LAB BLOOD ORDERABLES Final Result Performing Organization Address [facility]/ZIP Co de Phone Number [facility] [address] Department [employer] [place] [place] [address] * (ABNORMAL) CBC without differential (06/11/2020 11:41 AM CDT) WBC 5.0 3.8 - 9.9 K/cumm [facility] Hgb 8.3(L) 13.0 - 17.5 g/dL [facility] Hct 26.3(L) 38.9 - 50.3 % [facility] Plt 155 150 - 400 K/cumm [facility] MPV 10.1 9.1 - 12.3 fL [facility] RBC 2.91(L) 4.30 - 5.80 M/cumm [facility] MCV 90.4 81.3 - 96.4 fL [facility] MCH 28.5 27.1 - 33.3 pg [facility] MCHC 31.6(L) 32.3 - 35.7 g/dL [facility] RDW CV 15.6(H) 11.1 - 14.9 % [facility] RDW SD 51.1(H) 35.7 - 48.1 fL [facility] NRBC abs 0.00 0.00 - 0.01 K/cumm [facility] Blood specimen (specimen) 06/11/2020 11:41 AM CDT 06/11/2020 12:36 PM CDT Narrative [facility] - 06/11/2020 1:01 PM CDT Until heparin is discontinued. us Jono LLANOS LAB BLOOD ORDERABLES Final R esult Performing Organization Address City/[facility]/ZIP Co de Phone Number [facility] [address] Department [place] [address] * (ABNORMAL) aPTT (06/10/2020 2:11 AM [employer] ASSEMBLER) aPTT 93(H) 27 - 37 sec [facility] Comment: Interpretive Data Therapeutic heparin range: 60.0 - 94.0 seconds. Based on correlation with therapeutic heparin activity range of 0.3-0.7 Units/mL. Current interpretive data was last revised on 2020. Blood specimen (specimen) 06/10/2020 2:11 AM [employer] ASSEMBL[employer] 06/10/2020 2:24 AM [employer] ASSEMBLER us Hernan Cordero MD LAB BLOOD ORDERABLES Final Result Performing Organization Address City/[facility]/ZIP Co de Phone Number [facility] [address] Department [place] [address] * (ABNORMAL) Troponin T high-sensitivity 6-hour (06/10/2020 2:11 AM [employer]XOPHONE ASSEMBLER) Pathologist [facility] [place] Trop T hs 60(H) <=22 ng/L [facility] Comment: Interpretive Data For further hscTnT resources including the diagnostic algorithm and an aid in interpretation, copy and paste this link: [email or web address].testcatalog.org/show/hsTrop Current Interpretive Data last revised 2020. Trop T hs delta 9 ng/L [facility] Trop T hs interp Equivocal [facility] Blood specimen (specimen) 06/10/2020 2:11 AM [employer] ASSEMBLER 06/10/2020 2:24 AM [employer] ASSEMBLER Yevgeniy LLANOS LAB BLOOD ORDERABLES Final Result [facility] [address] Department [place] [address] * (ABNORMAL) CBC without differential (06/10/2020 2:11 AM SAXOPHONE ASSEMBLER) [facility] WBC 5.1 3.8 - 9.9 K/cumm [facility] Hgb 8.2(L) 13.0 - 17.5 g/dL [facility] Hct 25.6(L) 38.9 - 50.3 % [facility] Plt 149(L) 150 - 400 K/cumm [facility] MPV 9.8 9.1 - 12.3 fL [facility] RBC 2.92(L) 4.30 - 5.80 M/cumm [facility] MCV 87.7 81.3 - 96.4 fL [facility] MCH 28.1 27.1 - 33.3 pg [facility] MCHC 32.0(L) 32.3 - 35.7 g/dL [facility] RDW CV 15.7(H) 11.1 - 14.9 % [facility] RDW SD 50.3(H) 35.7 - 48.1 fL [facility] NRBC abs 0.00 0.00 - 0.01 K/cumm [facility] Blood specimen (specimen) 06/10/2020 2:11 AM [employer]HONE ASSEMBLER 06/10/2020 2:24 AM SAXOPHONE ASSEMBLER Narrative [facility] - 06/10/2020 2:32 AM [employer]OPHONE ASSEMBLER Until heparin is discontinued. Jono LLANOS LAB BLOOD ORDERABLES Final R esult [facility] [address] Department of [employer] [place], [place] [id number] * (ABNORMAL) Ferritin (06/10/2020 2:11 AM SAXOPHONE ASSEMBLER) Ferritin 545(H) 30 - 400 ng/mL [facility] Blood specimen (specimen) 06/10/2020 2:11 AM [employer] ASSEMBLER 06/10/2020 2:24 AM [employer]HONE ASSEMBLER Cy Krause MD LAB BLOOD ORDERABLES Final Res ult Performing Organization Address [facility] Co de Phone Number [facility] [address] Department [employer] [place], [place] [phone] * (ABNORMAL) Iron profile w/ IBC (06/10/2020 2:11 AM SAXOPHONE ASSEMBLER) Iron 54 50 - 150 mcg/dL [facility] TIBC 207(L) 250 - 400 mcg/dL [facility] Transferrin saturation 26 20 - 50 % [facility] Blood specimen (specimen) 06/10/2020 2:11 AM [employer] ASSEMBLER 06/10/2020 2:24 AM SAXOPHONE ASSEMBLER Cy Krause MD LAB BLOOD ORDERABLES Final Res ult Performing Organization Address City/[facility]/ZIP Co de Phone Number [facility] [address] Department [place] [employer] [address] * (ABNORMAL) Vitamin B12 (06/10/2020 2:11 AM SAXOPHONE ASSEMBLER) Vitamin B12 214(L) 230 - 1,250 pg/mL [facility] Blood specimen (specimen) 06/10/2020 2:11 AM [employer]OPHONE ASSEMBLER 06/10/2020 2:24 AM SAXOPHONE ASSEMBLER us Cy Krause MD LAB BLOOD ORDERABLES Final Res ult [facility] [address] Department [place] [address] * (ABNORMAL) Lipid panel (06/10/2020 2:11 AM SAXOPHONE ASSEMBLER) Pathologist [facility] [place] Cholesterol 140 30 - 199 mg/dL [facility] Comment: Interpretive Data Ages < or = [...] revised on 2017. Triglycerides 151(H) <=149 mg/dL [facility] Comment: Interpretive Data Ages < or = [...] revised on 2017. HDL 36(L) >=40 mg/dL [facility] Comment: Interpretive Data Ages < or = [...] on 2017. LDL, calculated 74 <=129 mg/dL [facility] Comment: Interpretive Data Ages < or = [...] revised on 2017. Non-HDL Cholesterol 104 mg/dL [facility] Comment: Interpretive Data Ages < or = [...] last revised on 2017. Chol/HDL ratio 4 [facility] Blood specimen (specimen) 06/10/2020 2:11 AM [employer]HONE ASSEMBLER 06/10/2020 2:24 AM SAXOPHONE ASSEMBLER Hernan Cordero MD LAB BLOOD ORDERABLES Final Result Performing Organization Address [facility] Co de Phone Number [facility] [address] Department [place] [address] * Hemoglobin A1c (06/10/2020 2:11 AM SAXOPHONE ASSEMBLER) [facility] Hgb A1C 5.3 4.0 - 5.6 % [facility] Estimated Average Glucose 105 mg/dL [facility] Comment: The ADA recommends reporting an estimated Average Glucose (eAG) with all Hemoglobin A1c results using the equation derived from a study of 507 normal and diabetic adults. ??Minority populations were underrepresented and children were not included. ?? (Diabetes Care 31:6170-9160, 2008). ??The eAG is not equivalent to a fasting glucose. Blood specimen (specimen) 06/10/2020 2:11 AM [employer]XOPHONE ASSEMBLER 06/10/2020 2:24 AM SAXOPHONE ASSEMBLER Hernan Cordero MD LAB BLOOD ORDERABLES Final Result Performing Organization Address [facility]/ZIP Co de Phone Number [facility] [address] Department [place] [address] * (ABNORMAL) Troponin T high-sensitivity 4-hour (06/09/2020 11:59 PM SAXOPHONE ASSEMBLER) Trop T hs 56(H) <=22 ng/L [facility] Comment: Interpretive Data For further hscTnT resources including the diagnostic algorithm and an aid in interpretation, copy and paste this link: https://nrl.testcatalog.org/show/hsTrop Current Interpretive Data last revised 2020. Trop T hs delta 5 ng/L [facility] Trop T hs interp Equivocal [facility] Blood specimen (specimen) 06/09/2020 11:59 PM [employer]OPH[employer] ASSEMBLER 06/10/2020 12:06 AM SAXOPHONE ASSEMBLER Yevgeniy LLANOS LAB BLOOD ORDERABLES Final Result [facility] [address] Department [place] [address] * Critical Care (06/09/2020 11:45 PM SAXOPHONE ASSEMBLER) Narrative Yaneth Bull MD - 06/09/2020 11:45 PM [employer]XOPHONE ASSEMBLER Yevgeniy Gonzalez PA ? 06/10/2020 10:10 AM [...] plan with the ICU team and other medical/technical services consultant staff, making frequent assessments and decisions [...] Acute pain/acute postoperative pain ?? Hypertensive crisis, [id number] mycardial infarction (Non-STEMI) and Demand ischemia/elevated troponins [...] Duplex Lower Extremity Bilateral (06/09/2020 10:30 PM SAXOPHONE ASSEMBLER) Anatomical Region Laterality Modality Vascular Bilateral Ultrasound [...] Troponin T high-sensitivity 2-hour (06/09/2020 10:11 PM SAXOPHONE ASSEMBLER) Trop T hs 57(H) <=22 ng/L [facility] Comment: Interpretive Data For further hscTnT resources including the diagnostic algorithm and an aid in interpretation, copy and paste this link: [email or web address].testcatalog.org/show/[email or web address] Current Interpretive Data last revised 2020. Trop T hs delta 6 ng/L [facility] Trop T hs interp Equivocal [facility] Blood specimen (specimen) 06/09/2020 10:11 PM [employer]XOPHONE ASSEMBLER 06/09/2020 10:15 PM SAXOPHONE ASSEMBLER us Yevgeniy LLANOS LAB BLOOD ORDERABLES Final Result [facility] [address] Department [place] [address] * US Carotids Duplex Bilateral (06/09/2020 10:00 PM SAXOPHONE ASSEMBLER) Anatomical Region Laterality Modality Vascular Bilateral Ultrasound [...] available. Electronically signed by: Jeffrey Randolph M.D. us Hernan Cordero MD IMG US PROCEDURES Final Res ult * Protein / creatinine ratio, urine, random (06/09/2020 9:48 PM SAXOPHONE ASSEMBLER) Protein, ur, quant 14.1 mg/dL [facility] Comment: Interpretive Data No reference range established. Current interpretive data was last revised 2018. Creatinine Ur 98.6 mg/dL [facility] Comment: Interpretive Data No reference range established. Current interpretive data was last revised 2018. Protein/creatinin e ratio 143.0 0.0 - 180.0 mg/g CR [facility] Urine 06/09/2020 9:48 PM [employer]XOPHONE ASSEMBLER 06/09/2020 9:58 PM SAXOPHONE ASSEMBLER Narrative [facility] - 06/09/2020 10:28 PM SAXOPHONE ASSEMBLER No reference range established for random urine total protein. ??No reference range established for random urine total protein. us Cy Kruase MD LAB URINE ORDERABLES Final Res ult [facility] [address] Department [place] [address] * Urinalysis reflex to microscopic and culture Urine (06/09/2020 9:48 PM SAXOPHONE ASSEMBLER) Color, ur Yellow Yellow [facility] Clarity, ur Clear Clear [facility] Specific gravity, ur 1.014 1.010 - 1.025 [facility] pH, urine 6.5 [facility] Protein, ur ql Trace Negative [facility] Glucose, ur ql Negative Negative [facility] Ketones, ur Negative Negative [facility] Bilirubin, ur Negative Negative [facility] Blood, ur Negative Negative [facility] Urobilinogen, ur <2.0 <2.0 mg/dL [facility] Nitrite, ur Negative Negative [facility] Leukocyte esterase, ur Negative Negative [facility] UA reflex comment Reflex conditions for microscopic UA and culture not met. [facility] Urine 06/09/2020 9:48 PM [employer]XOPHONE ASSEMBLER 06/09/2020 10:03 PM SAXOPHONE ASSEMBLER Narrative [facility] - 06/09/2020 10:06 PM SAXOPHONE ASSEMBLER ?? Urine pH is affected by diet, medications, systemic acid-base disturbances, and renal tubular function. ??pH may affect urinary stone formation. ??For example, urine pH below 6.0 may help reduce the tendency for calcium phosphate stones and pH greater than 6.0 may reduce the tendency for uric acid stone formation. Source: [facility] [employer]. Last revised 04-10-2017 us Cy Krause MD LAB MICROBIOLOGY - GENERAL ORD ERABLES Final Result [facility] [address] Department [place] [address] * (ABNORMAL) Troponin T high-sensitivity series (baseline, 2hr, 4hr, 6hr) (06/09/2020 8:07 PM SAXOPHONE ASSEMBLER) Trop T hs 51(H) <=22 ng/L [facility] Comment: Interpretive Data For further hscTnT resources including the diagnostic algorithm and an aid in interpretation, copy and paste this link: [email or web address].testcatalog.org/show/[email or web address] Current Interpretive Data last revised 2020. Blood specimen (specimen) 06/09/2020 8:07 PM SAXOPHONE ASSEMBLER 06/09/2020 8:28 PM SAXOPHONE ASSEMBLER Yevgeniy LLANOS LAB BLOOD ORDERABLES Final Result Performing Organization Address [facility] Co de Phone Number [facility] [address] Department [place] [address] * (ABNORMAL) aPTT (06/09/2020 7:55 PM SAXOPHONE ASSEMBLER) aPTT 74(H) 27 - 37 sec [facility] Comment: Interpretive Data Therapeutic heparin range: 60.0 - 94.0 seconds. Based on correlation with therapeutic heparin activity range of 0.3-0.7 Units/mL. Current interpretive data was last revised on 2020. Blood specimen (specimen) 06/09/2020 7:55 PM SAXOPHONE ASSEMBLER 06/09/2020 8:22 PM SAXOPHONE ASSEMBLER Hernan Cordero MD LAB BLOOD ORDERABLES Final Result Performing Organization Address [facility] de Phone Number [facility] [address] [place] [address] * ECG 12 lead (06/09/2020 7:33 PM SAXOPHONE ASSEMBLER) 06/09/2020 7:33 PM SAXOPHONE ASSEMBLER Narrative [facility] - 06/10/2020 8:49 AM SAXOPHONE ASSEMBLER Vent Rate: 79 bpm RR Interval: 755 msec [place] Interval: 152 msec QRS Duration: 82 msec QT Interval: 408 msec QTC Interval: 443 msec P-R-T [place]: 53 - 40 - 62 [address]M [address]ER[address] DEPRESSION ABNORMAL ECG Electronically Signed By: Tavo Mares MD ??[facility] Card Hernan Cordero MD ECG ORDERABLES Final Resul t Performing Organization Address [facility] de Phone Number [facility] [employer] [facility] * XR Chest PA Lateral 2 View (06/09/2020 4:18 PM SAXOPHONE ASSEMBLER) Anatomical Region Laterality Modality Body, Chest N/A Computed Radiogr aphy 06/09/2020 4:29 PM SAXOPHONE ASSEMBLER Impressions 06/09/2020 4:29 PM SAXOPHONE ASSEMBLER No focal consolidation or acute cardiopulmonary findings. Electronically signed by: Ky Steinberg M.D. Narrative 06/09/2020 4:29 PM SAXOPHONE ASSEMBLER XR CHEST PA LATERAL 2 VIEWS: 06/09/2020 [...] ult * (ABNORMAL) aPTT (06/09/2020 12:04 PM SAXOPHONE ASSEMBLER) aPTT 82(H) 27 - 37 sec [facility] Comment: Interpretive Data Therapeutic heparin range: 60.0 - 94.0 seconds. Based on correlation with therapeutic heparin activity range of 0.3-0.7 Units/mL. Current interpretive data was last revised on 2020. Blood specimen (specimen) 06/09/2020 12:04 PM SAXOPHONE ASSEMBLER 06/09/2020 12:38 PM SAXOPHONE ASSEMBLER Hernan Cordero MD LAB BLOOD ORDERABLES Final Result [facility] [address] Department of [employer] [address] * Prepare RBC: 4 Units (06/09/2020 11:12 AM SAXOPHONE ASSEMBLER) Product code [id number] [facility] Unit Number [id number] [facility] Product Blood Type APOS [facility] Dispense Status PRESUMED TRANSFUSED [facility] Product code [id number] [facility] Unit Number [id number] [facility] Product Blood Type APOS [facility] Dispense Status RETURNED [facility] Product code [id number] [facility] Unit Number [id number] Z [facility] Product Blood Type APOS [facility] Dispense Status PRESUMED TRANSFUSED [facility] Product code [id number] [facility] Unit Number [id number] E [facility] Product Blood Type APOS [facility] Dispense Status RETURNED [facility] Blood specimen (specimen) 06/09/2020 11:12 AM SAXOPHONE ASSEMBLER Narrative [facility] - 06/15/2020 9:12 AM CDT Specify Procedure:->CABG Are special requirements needed? (all products are leukoreduced)->No Date required:-[id number] LRRBC # of [id number] Reasons:-Hold for procedure (specify procedure)} Hernan Cordero MD BLOOD BANK PRODUCT ORDERABL ES Final Result Performing Organization Address [facility] de Phone Number [facility] [address] Department [place] [employer] [address] * Check Sample (06/09/2020 6:20 AM SAXOPHONE ASSEMBLER) ABO Rh A Positive [facility] HCLL OTHER 06/09/2020 6:20 AM SAXOPHONE ASSEMBLER 06/09/2020 11:33 AM SAXOPHONE ASSEMBLER Hernan Cordero MD LAB BLOOD ORDERABLES Final Result [facility] [address] Department [place] [address] * (ABNORMAL) CBC without differential (06/09/2020 6:20 AM SAXOPHONE ASSEMBLER) Pathologist [facility] [place] WBC 6.3 3.8 - 9.9 K/cumm [facility] Hgb 8.9(L) 13.0 - 17.5 g/dL [facility] Hct 27.7(L) 38.9 - 50.3 % [facility] Plt 150 150 - 400 K/cumm [facility] MPV 10.1 9.1 - 12.3 fL [facility] RBC 3.12(L) 4.30 - 5.80 M/cumm [facility] MCV 88.8 81.3 - 96.4 fL [facility] MCH 28.5 27.1 - 33.3 pg [facility] MCHC 32.1(L) 32.3 - 35.7 g/dL [facility] RDW CV 15.8(H) 11.1 - 14.9 % [facility] RDW SD 50.7(H) 35.7 - 48.1 fL [facility] NRBC abs 0.00 0.00 - 0.01 K/cumm [facility] Blood specimen (specimen) 06/09/2020 6:20 AM SAXOPHONE ASSEMBLER 06/09/2020 6:40 AM SAXOPHONE ASSEMBLER Narrative [facility] - 06/09/2020 6:47 AM SAXOPHONE ASSEMBLER Until heparin is discontinued. us Jono LLANOS LAB BLOOD ORDERABLES Final R esult [facility] [address] Department [place] [address] * (ABNORMAL) aPTT (06/09/2020 2:59 AM SAXOPHONE ASSEMBLER) Pathologist [facility] [place] aPTT 116(H) 27 - 37 sec [facility] Comment: Interpretive Data Therapeutic heparin range: 60.0 - 94.0 seconds. Based on correlation with therapeutic heparin activity range of 0.3-0.7 Units/mL. Current interpretive data was last revised on 2020. Blood specimen (specimen) 06/09/2020 2:59 AM SAXOPHONE ASSEMBLER 06/09/2020 3:05 AM SAXOPHONE ASSEMBLER us Cy Krause MD LAB BLOOD ORDERABLES Final Res ult [facility] [address] Department [place] [address] * eGFR (06/08/2020 6:32 PM SAXOPHONE ASSEMBLER) eGFR 35 mL/min/1.7 3 m2 [facility] Comment: Interpretive Data Reference Interval Normal ?>/= [...] 2020 Blood specimen (specimen) 06/08/2020 6:32 PM SAXOPHONE ASSEMBLER 06/08/2020 6:32 PM SAXOPHONE ASSEMBLER us Jono LLANOS LAB BLOOD ORDERABLES Final R esult Performing Organization Address [facility] Co de Phone Number [facility] [address] [facility] [employer] [address] * (ABNORMAL) aPTT (06/08/2020 6:32 PM SAXOPHONE ASSEMBLER) aPTT 59(H) 27 - 37 sec [facility] Comment: Interpretive Data Therapeutic heparin range: 60.0 - 94.0 seconds. Based on correlation with therapeutic heparin activity range of 0.3-0.7 Units/mL. Current interpretive data was last revised on 2020. Blood specimen (specimen) 06/08/2020 6:32 PM SAXOPHONE ASSEMBLER 06/08/2020 6:32 PM SAXOPHONE ASSEMBLER Narrative [facility] - 06/08/2020 7:22 PM SAXOPHONE ASSEMBLER Unless preformed in the last 48 hours. Draw prior to heparin administration. Jono LLANOS LAB BLOOD ORDERABLES Final R esult Performing Organization Address [facility] Co de Phone Number [facility] [address] [facility] [employer] [address] * Protime-INR (06/08/2020 6:32 PM SAXOPHONE ASSEMBLER) PT 12.8 9.5 - 13.6 sec [facility] INR 1.2 0.9 - 1.2 [facility] Comment: Interpretive data Oral anticoagulant therapeutic ranges: Venous thromboembolism prophylaxis or treatment: 2.0-3.0 CARDIOLOGY Standard range: 2.0-3.0 High-intensity range: 2.5-3.5 Refer to indication-specific guidelines for appropriate target ranges for prosthetic heart valve replacement. Current interpretive data was last revised on 2019. Blood specimen (specimen) 06/08/2020 6:32 PM SAXOPHONE ASSEMBLER 06/08/2020 6:32 PM SAXOPHONE ASSEMBLER Narrative [facility] - 06/08/2020 7:22 PM SAXOPHONE ASSEMBLER Unless preformed in the last 48 hours. Draw prior to heparin administration. Jono LLANOS LAB BLOOD ORDERABLES Final R esult [facility] [address] Department [employer] [place] [place] [address] * (ABNORMAL) CBC without differential (06/08/2020 6:32 PM SAXOPHONE ASSEMBLER) WBC 5.7 3.8 - 9.9 K/cumm [facility] Hgb 9.1(L) 13.0 - 17.5 g/dL [facility] Hct 28.7(L) 38.9 - 50.3 % [facility] Plt 166 150 - 400 K/cumm [facility] MPV 9.9 9.1 - 12.3 fL [facility] RBC 3.24(L) 4.30 - 5.80 M/cumm [facility] MCV 88.6 81.3 - 96.4 fL [facility] MCH 28.1 27.1 - 33.3 pg [facility] MCHC 31.7(L) 32.3 - 35.7 g/dL [facility] RDW CV 15.5(H) 11.1 - 14.9 % [facility] RDW SD 49.8(H) 35.7 - 48.1 fL [facility] NRBC abs 0.00 0.00 - 0.01 K/cumm [facility] Blood specimen (specimen) 06/08/2020 6:32 PM SAXOPHONE ASSEMBLER 06/08/2020 6:32 PM SAXOPHONE ASSEMBLER Narrative [facility] - 06/08/2020 6:40 PM SAXOPHONE ASSEMBLER Unless preformed in the last 48 hours. Draw prior to heparin administration. Jono LLANOS LAB BLOOD ORDERABLES Final R esult [facility] [address] Department of [employer] [place] [address] * (ABNORMAL) CBC without differential (06/08/2020 6:32 PM SAXOPHONE ASSEMBLER) WBC 5.6 3.8 - 9.9 K/cumm [facility] Hgb 9.1(L) 13.0 - 17.5 g/dL [facility] Hct 28.7(L) 38.9 - 50.3 % [facility] Plt 154 150 - 400 K/cumm [facility] MPV 9.5 9.1 - 12.3 fL [facility] RBC 3.25(L) 4.30 - 5.80 M/cumm [facility] MCV 88.3 81.3 - 96.4 fL [facility] MCH 28.0 27.1 - 33.3 pg [facility] MCHC 31.7(L) 32.3 - 35.7 g/dL [facility] RDW CV 15.6(H) 11.1 - 14.9 % [facility] RDW SD 50.4(H) 35.7 - 48.1 fL [facility] NRBC abs 0.00 0.00 - 0.01 K/cumm [facility] Blood specimen (specimen) 06/08/2020 6:32 PM SAXOPHONE ASSEMBLER 06/08/2020 6:32 PM SAXOPHONE ASSEMBLER Jono LLANOS LAB BLOOD ORDERABLES Final R esult Performing Organization Address [facility] Co de Phone Number [facility] [address] [employer] [place], [place] [id number] * Magnesium (06/08/2020 6:32 PM SAXOPHONE ASSEMBLER) Pathologist [facility] [place] Magnesium 1.6 1.4 - 2.5 mg/dL [facility] Blood specimen (specimen) 06/08/2020 6:32 PM SAXOPHONE ASSEMBLER 06/08/2020 6:32 PM SAXOPHONE ASSEMBLER Jono LLANOS LAB BLOOD ORDERABLES Final R esult [facility] [address] [facility] [employer] [address] * (ABNORMAL) Comprehensive metabolic panel (06/08/2020 6:32 PM SAXOPHONE ASSEMBLER) Sodium 143 135 - 145 mmol/L [facility] Potassium, pl 3.9 3.3 - 4.9 mmol/L [facility] Chloride 108 97 - 110 mmol/L [facility] CO2 25 22 - 32 mmol/L [facility] Anion gap 10 2 - 15 mmol/L [facility] BUN 23 8 - 25 mg/dL [facility] Creatinine 1.95(H) 0.80 - 1.30 mg/dL [facility] Glucose 101 70 - 199 mg/dL [facility] Comment: Interpretive Data Fasting glucose >/= 126 [...] 2017. 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 06/08/2020 6:32 PM SAXOPHONE ASSEMBLER us Jono LLANOS LAB BLOOD ORDERABLES Final R esult [facility] [address] Department [place] [address] documented in this encounter Visit Diagnoses Diagnosis Angina pectoris syndrome (CMS/HCC) (HCC)- Primary Other and unspecified angina pectoris Hypertension, unspecified type 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 (HCC) S/P CABG x 3 Postsurgical aortocoronary bypass status documented in this encounter Administered Medications Inactive Administered Medications - up to 3 most recent administrations Medication Order MAR Action Action Date Dose Rate Site acetaminophen (TYLENOL) tablet 1,000 mg 1,000 mg, oral, Every 6 hours scheduled, First dose on 06/12/20 at 1345, If able to swallow medications., Indications: PainIndications:Pain Given 06/15/2020 6:44 AM CDT 1,000 mg Given 06/14/2020 11:59 PM CDT 1,000 mg Given 06/14/2020 6:36 PM CDT 1,000 mg albumin 5 % bottle 12.5 g 12.5 g, intravenous, Once, On 06/12/20 at 1415, For 1 dose, Indications: Shock, second line (septic, hypovolemic, post-operative)Indications:Shock, second line (septic, hypovolemic, post-operative) Given 06/12/2020 1:50 PM CDT 12.5 g aluminum-magnesium hydroxide-simethicone (MAALOX MAX) 80-80-8 mg/mL oral suspension 20 mL 20 mL, oral, Every 4 hours PRN, indigestion, heartburn, Starting on Fri06/09/20 at 1931 Given 06/09/2020 7:34 PM SAXOPHONE ASSEMBLER 2 0 mL aspirin tablet 325 mg 325 mg, oral, Daily, First dose on 06/12/20 at 1345, If able to swallow medications. Within 6h of arrival to CVR if chest tube output allows. Given 06/15/2020 9:50 AM CDT 325 mg Given 06/14/2020 8:32 AM CDT 325 mg Given 06/13/2020 8:22 AM CDT 325 mg atorvastatin (LIPITOR) tablet 20 mg 20 mg, oral, Daily, First dose on Fri06/08/20 at 1845 Given 06/11/2020 9:21 AM CDT 20 mg Given 06/10/2020 9:23 AM SAXOPHONE ASSEMBLER 20 mg Given 06/09/2020 9:01 AM SAXOPHONE ASSEMBLER 20 mg atorvastatin (LIPITOR) tablet 40 mg 40 mg, oral, Nightly, First dose on 3/16/21 at 2100 Given 06/14/2020 9:11 PM CDT 40 mg Given 06/13/2020 8:53 PM CDT 40 mg bisacodyL (DULCOLAX) suppository 10 mg 10 mg, rectal, Once, On Fri06/11/20 at 2000, For 1 dose, Pre-Op/Floor, At 8 PM the evening before surgery. , Indications: Bowel EvacuationIndications:Bowel Evacuation Given 06/11/2020 8:05 PM CDT 10 mg ceFAZolin (ANCEF) 2,000 mg/20 mL in sterile water (premix) 2,000 mg 2,000 mg, intravenous, at 400 mL/hr, Administer over 3 Minutes, Every 12 hours, First dose (after last modification) on 06/12/20 at 2000, For 5 doses, Start 8 hours after last miguel-operative dose., Indications: Prophylaxis, SurgicalIndications:Prophylaxis, Surgical New Bag 06/14/2020 7:51 PM CDT 2,000 mg 400 mL/hr New Bag 06/14/2020 10:17 AM CDT 2,000 mg 400 mL/hr New Bag 06/13/2020 8:21 PM CDT 2,000 mg 400 mL/hr cyanocobalamin (Vitamin B-12) injection 1,000 mcg 1,000 mcg, subcutaneous, Every 30 days, First dose on 06/10/20 at 1145 Given 06/10/2020 5:17 PM SAXOPHONE ASSEMBLER 1,000 mcg Left Upper Arm docusate sodium (COLACE) capsule 100 mg 100 mg, oral, Daily, First dose on 06/12/20 at 1345, If able to swallow medications. Hold for diarrhea. , Indications: constipationIndications:const ipation Given 06/14/2020 8:33 AM CDT 100 mg Given 06/13/2020 8:22 AM CDT 100 mg epoetin live-epbx (RETACRIT) (10,000 unit/mL) injection 20,000 Units 20,000 Units, subcutaneous, 3 times weekly (Once per day on Fri), First dose on 06/10/20 at 1145, Refrigerate, Indications: Anemia NOT associated with chemotherapy, radiation, or ESRDIndications:Anemia NOT associated with chemotherapy, radiation, or ESRD Given 06/10/2020 5:17 PM SAXOPHONE ASSEMBLER 20,000 Units Right Upper Abdomen famotidine (PEPCID) injection 20 mg 20 mg, intravenous, Administer over 2 Minutes, Every 12 hours scheduled, First dose on Fri06/12/20 at 1345, Indications: Prevention of Stress UlcerIndications:Prevention of Stress Ulcer Given 06/12/2020 2:02 PM CDT 20 mg fentaNYL (SUBLIMAZE) preservative free injection 25 mcg 25 mcg, intravenous, Every 1 hour PRN, 1st line for pain, Starting on Fri06/12/20 at 1531 Given 06/12/2020 4:52 PM CDT 25 mcg Given 06/12/2020 3:45 PM CDT 25 mcg furosemide (LASIX) 10 mg/mL injection 40 mg 40 mg, intravenous, Once, On Fri06/13/20 at 0745, For 1 dose, For IV push: administer doses < 160 mg at a rate of 20 -40 mg/min. Doses >/= 160 mg should be administered no faster than 4 mg/min. Room temperature only Given 06/13/2020 7:2 9 AM CDT 40 mg gabapentin (NEURONTIN) capsule 300 mg 300 mg, oral, Nightly, First dose (after last modification) on Anita 06/08/20 at 2100 Given 06/11/2020 8:05 PM CDT 300 mg Given 06/10/2020 9:16 PM SAXOPHONE ASSEMBLER 300 mg Given 06/09/2020 8:03 PM SAXOPHONE ASSEMBLER 300 mg gabapentin (NEURONTIN) capsule 300 mg 300 [...] CDT 5,000 Units R ight Lower Abdomen heparin in 0.45% sodium chloride 25,000 units/250 mL (100 units/mL) infusion (premix) 0-33 Units/kg/hr ? 94.6 kg (0-31.218 mL/hr, rounded to 0-31.22 mL/hr), intravenous, Titrated, Starting on Anita 06/08/20 at 1900, WEIGHT-BASED HEPARIN INFUSION Initial rate:: 10.5 Units/kg/hr. Max initial rate 1,000 units/hr. Adjust infusion based upon nomogram: PTT less than 40 seconds: Bolus if ordered (see PRN bolus order) , then increase infusion rate 3 units/kg/hour PTT 40 - 50.9 seconds: Bolus if ordered (see PRN bolus order), then increase infusion rate 2 units/kg/hour PTT 51 - 59.9 seconds: No bolus, increase infusion rate 1 unit/kg/hour PTT 60 - 94.9 seconds: No change PTT 95 - 104.9 seconds: No bolus, decrease infusion rate 1 unit/kg/hour PTT 105 - 114.9 seconds: Hold infusion for 30 minutes, then decrease infusion rate 2 units/kg/hour PTT 115 or greater seconds: Hold infusion for 1 hour, then decrease infusion rate 3 units/kg/hour Draw STAT PTT 6 hrs after initial heparin bolus, after each rate change, and every 6 hours until 2 consecutive PTTs are within therapeutic range. Once two consecutive PTT's are therapeutic (60-94.9 seconds), then draw PTT every AM until heparin is discontinued., Indications: Acute Coronary SyndromeIndications:Acute Coronary Syndrome New Bag 06/11/2020 5:00 PM CDT 7.5 Units/kg/hr 7.1 mL/hr Rate/Dose Verify 06/11/2020 1:59 PM CDT 7.5 Units/kg/hr 7. 1 mL/hr Rate/Dose Verify 06/10/2020 2:44 AM SAXOPHONE ASSEMBLER 7.5 Units/kg/hr 7. 1 mL/hr hydrALAZINE (APRESOLINE) injection 20 mg 20 mg, intravenous, Administer over 2 Minutes, Every 2 hours PRN, high blood pressure, Starting on Tu06/13/20 at 0246, For 3 doses, Give for SBP > 150, Indications: hypertensionIndications:hypertension Given 06/13/2020 5:15 AM CDT 20 mg Given 06/13/2020 2:55 AM CDT 20 mg HYDROmorphone (DILAUDID) injection 0.2 mg 0.2 mg, intravenous, Administer over 2 Minutes, Every 2 hours PRN, breakthrough pain, Starting on Fri06/12/20 at 1700, For 23 hours Given 06/13/2020 4:00 AM CDT 0.2 mg Given 06/13/2020 2:00 AM CDT 0.2 mg Given 06/12/2020 9:01 PM CDT 0.2 mg HYDROmorphone (DILAUDID) injection 0.2 mg 0.2 mg, intravenous, Administer over 2 Minutes, Every 4 hours PRN, breakthrough pain, Starting on Fri06/13/20 at 1545 Given 06/13/2020 10:26 PM CDT 0.2 m g Given 06/13/2020 5:48 PM CDT 0.2 mg insulin lispro (HumaLOG, ADMELOG) injection 1-5 Units 1-5 Units, subcutaneous, 3 times daily with [...] NOT hold for NPO status., Indications: Diabetes MellitusIndications:Raquel betes Mellitus Given 06/13/2020 5:57 PM CDT 3 Units Left Upper Arm insulin regular (HumuLIN R, NovoLIN R) 100 Units in sodium chloride 0.9% 100 mL (1 Units/mL) infusion 0-30 Units/hr (0-30 mL/hr), 1 units/mL, intravenous, [...] 300 mg/dL for 4 consecutive readings, call MD/MAIL CLERK BILLS for additional IV bolus orders. When new IV tubing is used, completely prime the tubing. Once primed, waste an additional 20 ml of insulin infusion using the IV pump prior to connecting to patient., RoutineIndications:Hype rglycemia Rate/Dose Change 06/13/2020 8:00 AM CDT 1 Units/hr 1 mL/hr Rate/Dose Change 06/13/2020 1:46 AM CDT 0.5 Units/hr 0.5 m L/hr Rate/Dose Verify 06/12/2020 11:00 PM CDT 1 Units/hr 1 mL/h r insulin regular bolus from bag 2-14 Units 2-14 Units, intravenous, Once, On 06/12/20 at 1345, For 1 dose, INITIAL IV BOLUS/INITIAL RATE OF INSULIN INFUSION: NIDDM or non-DM pre-op Blood Glucose (mg/dL) 80 - 120: NO BOLUS and start infusion 0.5 unit/hr 121 - 180: NO BOLUS and start infusion 1 units/hr 181 - 240: Give 2 units IVP and start infusion 2 units/hr 241 - 300: Give 6 units IVP and start infusion 3.5 units/hr 301 - 360: Give 10 units IVP and start infusion 5 units/hr More than 360: Give 14 units IVP and start infusion 6.5 units/hr IDDM pre-op Blood Glucose (mg/dL) 80 - 120: NO BOLUS and start infusion 1 unit/hr 121 - 180: NO BOLUS and start infusion 2 units/hr 181 - 240: Give 2 units IVP and start infusion 3.5 units/hr 241 - 300: Give 6 units IVP and start infusion 5 units/hr 301 - 360: Give 10 units IVP and start infusion 6.5 units/hr More than 360: Give 14 units IVP and start infusion 8 units/hr, Indications: HyperglycemiaIndications:Hyperglyce yu Bolus from Bag 06/12/2020 1:41 PM CDT 2 Units labetaloL (NORMODYNE,TRANDATE) tablet 200 mg 200 mg, oral, 2 times daily, First dose on Anita 06/08/20 at 2100 Given 06/09/2020 8:03 PM SAXOPHONE ASSEMBLER 200 mg Given 06/09/2020 9:02 AM SAXOPHONE ASSEMBLER 200 mg Given 06/08/2020 9:18 PM SAXOPHONE ASSEMBLER 200 mg labetaloL (NORMODYNE,TRANDATE) tablet 200 mg 200 mg, oral, Every 8 hours scheduled, First dose (after last modification) on Fri06/10/20 at 0600 Given 06/12/2020 6:03 AM CDT 200 mg Given 06/11/2020 8:43 PM CDT 200 mg Given 06/11/2020 3:22 PM CDT 200 mg labetaloL (NORMODYNE,TRANDATE) tablet 200 mg 200 mg, oral, 2 times daily, First dose on Fri06/13/20 at 0730 Given 06/13/2020 7:28 AM CDT 200 mg labetaloL (NORMODYNE,TRANDATE) tablet 200 mg 200 mg, oral, 2 times daily, First dose (after last modification) on Fri06/13/20 at 2100 Given 06/15/2020 9:50 AM CDT 200 mg Given 06/14/2020 9:12 PM CDT 200 mg Given 06/14/2020 8:32 AM CDT 200 mg lidocaine viscous (XYLOCAINE) 2 % solution 5 mL 5 mL, oral, Once, On Fri06/09/20 at 2015, For 1 dose Given 06/09/2020 8:03 PM SAXOPHONE ASSEMBLER 5 mL morphine 4 mg/mL injection - ADS Override Pull Starting on Fri06/09/20 at 2205, For 1 dose, Created by cabinet override morphine injection 4 mg 4 mg, intravenous, Administer over 4 Minutes, Once, On Fri06/09/20 at 2245, For 1 dose Given 06/09/2020 10:07 PM SAXOPHONE ASSEMBLER 4 mg niCARdipine (CARDENE) 25,000 mcg in sodium chloride 0.9% 50 mL (500 mcg/mL) infusion 0-2.5 mcg/kg/min ? 96.4 kg (0-28.92 mL/hr), 500 mcg/mL, intravenous, Titrated, Starting on Fri06/12/20 at 1345, Until Fri06/13/20 at 0210, Initial rate: 0.5 mcg/kg/min, Titrate: Up/Down, Titrate by: 0.5 mcg/kg/min, Every: 10 minutes, Goal: SBP, SBP Goal: 130-140 mmHg, Discontinue when drip is off and stable at goal. Central line only, Routine New Bag 06/12/2020 11:52 PM CDT 2 mcg/kg/min 23.1 mL/hr Rate/Dose Change 06/12/2020 11:00 PM CDT 2 mcg/kg/min 23.1 mL/hr Rate/Dose Change 06/12/2020 10:00 PM CDT 1.5 mcg/kg/min 17 .35 mL/hr niCARdipine (CARDENE) 50,000 mcg in sodium chloride 0.9% 100 mL (500 mcg/mL) infusion 0-2.5 mcg/kg/min ? 96.4 kg (0-28.92 mL/hr), 500 mcg/mL, intravenous, Titrated, Starting on Fri06/13/20 at 0245, Until Fri06/13/20 at 1534, Initial rate: 0.5 mcg/kg/min, Titrate: Up/Down, Titrate by: 0.5 mcg/kg/min, Every: 10 minutes, Goal: SBP, SBP Goal: 130-140 mmHg, Discontinue when drip is off and stable at goal. Central line only, Routine Rate/Dose Verify 06/13/2020 11:00 AM CDT 0.5 mcg/kg/min 5.78 mL/hr Restarted 06/13/2020 10:45 AM CDT 0.5 mcg/kg/min 5.78 mL/ hr Rate/Dose Change 06/13/2020 9:00 AM CDT 0.5 mcg/kg/min 5.7 8 mL/hr nitroglycerin (NITRO-BID) 2 % ointment - ADS Override Pull Starting on Fri06/13/20 at 0418, For 1 dose, Created by cabinet override nitroglycerin (NITRO-BID) 2 % ointment 2 inch 2 inch, topical, Administer over 7 Hours, Once, On Fri06/13/20 at 0645, For 1 dose, Apply to chest or back with the applicator or dose-measuring paper. Wear gloves to apply to affected area. Wipe clean prior to reapplying next dose. May cover with a non-occlusive dressing., Apply to affected area: chest Medication Applied 06/13/2020 5:16 AM CDT Right Shoulder nitroglycerin (NITROSTAT) sublingual tablet 0.4 mg 0.4 mg, sublingual, Every 5 min PRN, chest pain, Starting on Fri06/09/20 at 1935, May administer up to 3 doses per episode. Given 06/09/2020 7:42 PM SAXOPHONE ASSEMBLER 0.4 mg Given 06/09/2020 7:37 PM SAXOPHONE ASSEMBLER 0.4 mg nitroglycerin in dextrose 5% 50 mg/250 mL (200 mcg/mL) infusion (premix) 0-50 mcg/min (0-15 mL/hr), 0.2 mg/mL, intravenous, Titrated, Starting on Fri06/09/20 at 2030, Until Fri06/12/20 at 1303, Initial rate: 10 mcg/min, Titrate: Up/Down, Titrate by: 10 mcg/min, Every: 5 minutes, Goal: Chest pain, STAT New Bag 06/12/2020 2:12 AM CDT 50 mcg/min 15 mL/hr New Bag 06/11/2020 9:22 AM CDT 50 mcg/min 15 mL/hr New Bag 06/10/2020 1:40 PM SAXOPHONE ASSEMBLER 50 mcg/min 15 mL/hr norepinephrine in 0.9% sodium chloride (LEVOPHED) 8,000 mcg/250 mL (32 mcg/mL) infusion (premix) 0-2 mcg/kg/min ? 96.4 kg (0-361.5 mL/hr), 32 mcg/mL, intravenous, Titrated, Starting on Fri06/12/20 at 1345, Until Fri06/12/20 at 1700, Indications: hypotension, Initial rate: 0.05 mcg/kg/min, Titrate: Up/Down, Titrate by: 0.01 mcg/kg/min, Every: 2 minutes, Goal: MAP, MAP Goal: 65-75 mmHg, Discontinue when drip is off and stable at goal. , RoutineIndications:hypote nsion Rate/Dose Change 06/12/2020 1:45 PM CDT 0.03 mcg/kg/min 5.42 mL/hr Rate/Dose Change 06/12/2020 1:42 PM CDT 0.06 mcg/kg/min 10 .85 mL/hr Rate/Dose Verify 06/12/2020 1:37 PM CDT 0.08 mcg/kg/min 14 .46 mL/hr ondansetron (ZOFRAN) injection 4 mg 4 mg, [...] Given 06/14/2020 11:59 PM CDT 5 mg propofol (DIPRIVAN) 10 mg/mL infusion 0-50 mcg/kg/min ? 96.4 kg (0-28.92 mL/hr), 10 mg/mL, intravenous, Titrated, Starting on Fri06/12/20 at 1615, Until Fri06/12/20 at 1700, Titration instructions: Titrate, Initial dose: 10 mcg/kg/min, Titrate: Up/Down, Titrate by: 10 mcg/kg/min, Every: 10 minutes, Goal: RASS, RASS Goal: -1, Do not administer through the same I.V. catheter with blood or plasma. Tubing and any unused portions of propofol vials should be discarded after 12 hours. Room temperature only, Routine Rate/Dose Change 06/12/2020 2:45 PM CDT 15 mcg/kg/min 8.68 mL/hr Rate/Dose Verify 06/12/2020 1:05 PM CDT 35 mcg/kg/min 20.2 mL/hr senna (SENOKOT) tablet 1 tablet 1 tablet, oral, 2 times daily, First dose on Fri06/13/20 at 0900, If able to swallow medications. Hold for diarrhea., Indications: constipationIndications:constipation Given 06/14/2020 9:12 PM CDT 1 table t Given 06/14/2020 8:32 AM CDT 1 tablet Given 06/13/2020 8:53 PM CDT 1 tablet sodium chloride (OCEAN) 0.65 % nasal spray 1 spray 1 spray, each nostril, Every 2 hours PRN, rhinitis, Starting on Fri06/14/20 at 2039 Given 06/14/2020 9:12 PM CDT 1 spray sodium chloride 0.9% flush 0.5-20 mL 0.5-20 mL, intra-catheter, Every 8 hours scheduled, First dose on Fri06/08/20 at 2200, Flush volume based on line type and size. Given 06/11/2020 6:01 AM CDT 10 mL Given 06/09/2020 8:04 PM SAXOPHONE ASSEMBLER 10 mL Given 06/09/2020 2:00 PM SAXOPHONE ASSEMBLER 10 mL sodium chloride 0.9% flush 0.5-20 mL 0.5-20 mL, intra-catheter, Every 8 hours scheduled, First dose on Fri06/12/20 at 1400, Flush volume based on line type and size. , Indications: FlushingIndications:Flushing Given 06/14/2020 9:12 PM CDT 10 mL Given 06/14/2020 1:28 PM CDT 10 mL Given 06/14/2020 6:46 AM CDT 10 mL sodium chloride 0.9% infusion 30 mL/hr, intravenous, Continuous, Starting on Fri06/12/20 at 0000, Pre-Op/Floor, Start at midnight the day of surgery. New Bag 06/12/2020 12:12 AM CDT 30 mL/hr 30 mL/hr sodium chloride 0.9% infusion 10 mL/hr, intravenous, Continuous, Starting on Fri06/12/20 at 1345 New Bag 06/12/2020 2:24 PM CDT 10 mL/hr 10 mL/hr sodium phosphate 15 mmol in sodium chloride 0.9% 250 mL IVPB 15 mmol, intravenous, at 42.5 mL/hr, Administer over 6 Hours, Once, On Fri06/12/20 at 1515, For 1 dose New Bag 06/12/2020 3:17 PM CDT 15 mmol 42.5 mL/hr vancomycin 1500 mg/250 mL in sodium chloride 0.9% (premix) 1,500 mg 1,500 mg, intravenous, Administer over 90 Minutes, Once, On Fri06/12/20 at 0730, For 1 dose, Pre-Op, Administer within 120 minutes of incision., Indications: Prophylaxis, Surgical, BUSINESS CONTINUITY SPECIALIST TO ORIndications:Prophylaxis, Surgical,BUSINESS CONTINUITY SPECIALIST TO OR New Bag 06/12/2020 7:13 AM CDT 1,500 mg vancomycin 1500 mg/250 mL in sodium chloride 0.9% (premix) 1,500 mg 1,500 mg, intravenous, Administer over 90 Minutes, Every 24 hours, First dose (after last modification) on Fri06/13/20 at 0800, For 1 dose, Start 12 hours after pre-operative dose., Indications: Prophylaxis, SurgicalIndications:Prophylaxis , Surgical New Bag 06/13/2020 8:09 AM CDT 1,500 mg documented in this encounter Discontinued Medications Medication [...] Mcclain RN)1213 (Given - Provider: Wen Faulkner RN)5858 (Given - Provider: Kellee Storey RN) 0107 (Given - Provider: Gertrudis Bhatt, [place])0646 (Given - Provider: Gertrudis Bhatt, [place])1147 (Given - Provider: Maliha Tamez, [place])1836 (Given - Provider: Maliha Tamez, [place])2359 (Given - Provider: Umm Polk, [place]) 0644 (Given - Provider: Umm Polk RN)1222 (Not Given - Provider: Maliha Tamez RN - Reason: Patient/family refused) aspirin tablet 325 mg(Linked Group 2) 325 mg, oral, Daily, First dose on Fri06/12/20 at 1345, If able to swallow medications. Within 6h of arrival to CVR if chest tube output allows. 0822 (Given - Provider: Wen Faulkner RN) 0832 (Given - Provider: Maliha Tamez, [place]) 0950 (Given - Provider: Maliha Tamez, [place]) atorvastatin (LIPITOR) tablet 40 mg 40 mg, oral, Nightly, First dose on Fri06/13/20 at 2100 2053 (Given - Provider: Gertrudis Bhatt, [place]) 211 (Given - Provider: Umm Polk, [place]) ceFAZolin (ANCEF) 2,000 mg/20 mL in sterile water (premix) 2,000 mg (COMPLETED) 2,000 mg, intravenous, at 400 mL/hr, Administer over 3 Minutes, Every 12 hours, First dose (after last modification) on Fri06/12/20 at 2000, For 5 doses, Start 8 hours after last miguel-operative dose., Indications: Prophylaxis, Surgical 0809 (New Bag - Provider: Wen Faulkner RN)2020 (New Bag - Provider: Gertrudis Bhatt, [place]) 1017 (New Bag - Provider: Maliha Tamez, [place])1950 (New Bag - Provider: Umm Polk RN) docusate sodium (COLACE) capsule 100 mg(Linked Group 3) 100 mg, oral, Daily, First dose on Fri06/12/20 at 1345, If able to swallow medications. Hold for diarrhea. , Indications: constipation 0822 (Given - Provider: Wen Faulkner RN) 0833 (Given - Provider: Maliha Tamez, RN) 0900 (Not Given - Provider: aMliha Tamez, [place] - Reason: Patient/family refused) furosemide [...] 2052 (Given - Provider: Gertrudis Bhatt, [place]) 211 (Given - Provider: Umm Polk, [place]) heparin 5,000 unit/mL injection 5,000 Units 5,000 Units, subcutaneous, Every 8 hours scheduled, First dose on Fri06/13/20 at 0600, Indications: VTE Prophylaxis 0515 (Given - Provider: Maribel Mcclain RN)1452 (Given - Provider: Wen Faulkner RN)2054 (Given - Provider: Gertrudis Bhatt, [place]) 0645 (Given - Provider: Gertrudis Bhatt, [place])1328 (Given - Provider: Maliha Tamez, [place])2112 (Given - Provider: Umm Polk, [place]) 0644 (Given - Provider: Umm Polk RN)1504 (Not Given - Provider: Maliha Tamez, [place] - Reason: Order Discontinued) insulin lispro (HumaLOG, [...] hold for NPO status., Indications: Diabetes Mellitus 175 (Given - Provider: Kellee Storey RN) 0800 (Not Given - Provider: Maliha Tamez, [place] - Reason: Order parameters not met)1215 (Not [...] (after last modification) on Fri06/13/20 at 2100 205 (Given - Provider: Gertrudis Bhatt, [place]) 0832 (Given - Provider: Maliha Tamez, [place])2111 (Given - Provider: Umm Polk, [place]) 0950 (Given - Provider: Maliha Tamez RN) [...] Maliha Tamez, [place] - Reason: Patient/family refused) sodium chloride 0.9% flush 0.5-20 mL 0.5-20 mL, intra-catheter, Every 8 hours scheduled, First dose on Fri06/12/20 at 1400, Flush volume based on line type and size. , Indications: Flushing 0519 (Not Given - Provider: Maribel Mcclain RN - Reason: Order parameters not met)1452 (Given - Provider: Wen Faulkner, [place])2054 (Given - Provider: Gertrudis Bhatt, RN) 0646 (Given - Provider: Gertrudis Bhatt, [place])1328 (Given - Provider: Maliha Tamez, [place])2112 (Given - Provider: Umm Polk RN) 0600 [...] hours after pre-operative dose., Indications: Prophylaxis, Surgical 0809 (New Bag - Provider: Wen Faulkner RN) [...] glucose is less than 75 mg/dL, call MD/ROSE 60 - 74 mg/dL: If previous BG [...] 300 mg/dL for 4 consecutive readings, call /MAIL CLERK BILLS for additional IV bolus orders. When new [...] Titrated, Starting on Fri06/13/20 at 0245, Until e 06/13/20 at 1534, Initial rate: 0.5 mcg/kg/min, Titrate: Up/Down, Titrate by: 0.5 mcg/kg/min, Every: 10 minutes, Goal: SBP, SBP Goal: 130-140 mmHg, Discontinue when drip is off and stable at goal. Central line only, Routine 0200 (Rate/Dose Verify - Provider: Maribel Mcclain RN)0240 (New Bag - Provider: Maribel Mcclain RN)0400 (Rate/Dose Verify - Provider: Maribel Mcclain RN)0600 (Rate/Dose Verify - Provider: Maribel Mcclain RN)0730 (New Bag - Provider: Wen Faulkner RN)0830 (Rate/Dose Change - Provider: Wen Faulkner RN)0845 (Rate/Dose Change - Provider: Wen Faulkner, [place])0900 (Rate/Dose Change - Provider: Wen Faulkner RN)0905 (Stopped - Provider: Wen Faulkner RN)1030 (Canceled Entry - Provider: Wen Faulkner RN)1045 (Restarted - Provider: Wen Faulkner, [place])1100 (Rate/Dose Verify - Provider: Wen Faulkner RN)1130 [...] and Vomiting 0820 (Given - Provider: Wen Faulkner RN) oxyCODONE (ROXICODONE) tablet 5 mg 5 mg, oral, Every 3 hours PRN, 1st line for pain, Starting on Fri06/12/20 at 1700, Indications: Pain 0205 (Given - Provider: Maribel Mcclain RN)0822 (Given - Provider: Wen Faulkner RN)1213 (Given - Provider: Wen Faulkner RN)1552 (Given - Provider: Kellee Storey, [place])2053 (Given - Provider: Gertrudis Bhatt, [place]) 0107 (Given - Provider: Gertrudis Bhatt, RN)0647 (Given - Provider: Gertrudis Bhatt, RN)1018 (Given - Provider: Maliha Tamez, RN)1612 (Given - Provider: Maliha Tamez, [place])2359 (Given [...] at 2039 2112 (Given - Provider: Umm Polk RN) sodium chloride 0.9% flush 0.5-20 mL [...] Count Last Ordered Date First Ordered Date dextrose (D10W) 10% bolus 250 mL 1 06/14/19 dextrose (GLUTOSE) 40 % gel 15 g 1 06/14/19 glucagon injection 1 mg 1 06/13/2020 insulin lispro (HumaLOG, ADM ELOG) injection 1-3 Units 1 06/13/2020 labetaloL (NORMODYNE,TRANDAT E) tablet 200 mg 2 06/13/2020 06/09/2020 labetaloL (NORMODYNE,TRANDAT E) tablet 300 mg 1 06/13/2020 acetaminophen (TYLENOL) 32 m g/mL oral solution 1,000 mg 1 06/12/2020 acetaminophen (TYLENOL) suppository 650 mg 1 06/12/2020 aspirin suppository 300 mg 1 06/12/2020 aspirin tablet 325 mg 1 06/12/2020 bisacodyL (DULCOLAX) suppository 10 mg 1 ceFAZolin (ANCEF) 2,000 mg/2 0 mL in sterile water (premix) 2,000 mg 2 06/12/2020 dextrose (D10W) 10% bolus 125 mL 1 06/13/19 docusate (COLACE) 10 mg/mL o ral liquid 100 mg 1 06/12/2020 famotidine (PEPCID) injection 20 mg 1 06/12 insulin lispro (HumaLOG, ADM ELOG) injection 1-14 Units 1 06/12/2020 insulin regular bolus from bag 2-14 Units 1 06/12/2020 papaverine 120 mg in Lactate d Ringer's (LR) 26 mL solution 1 06/12/2020 papaverine 120 mg, heparin 1 0,000 Units in Lactated Ringer's (LR) 500 mL irrigation solution 1 06/12/2020 polyethylene glycol (MIRALAX) packet 17 g 1 06/12/2020 potassium chloride 20 mEq/50 mL in sterile water (premix) 20 mEq 1 06/12/2020 senna 1.76 mg/mL syrup 8.8 mg 1 06/12/2020 sodium chloride 0.9% flush 0.5-20 mL 3 05/2906/08/2020 sodium chloride 0.9% flush 10-30 mL 1 06/12 sodium chloride 0.9% solution 1,000 mL 1 vancomycin 1500 mg/250 mL in sodium chloride 0.9% (premix) 1,500 mg 1 06/12/2020 sodium chloride 0.9% infusion 1 06/09/2020 acetaminophen (TYLENOL) tablet 650 mg 1 01/2021 gabapentin (NEURONTIN) capsule 300 mg 1 01/2021 heparin 5,000 unit/mL inject ion 2,000 Units 2 06/08/2020 heparin 5,000 unit/mL inject ion 3,000 Units 2 06/08/2020 heparin in 0.45% sodium chlo ride 25,000 units/250 mL (100 units/mL) infusion (premix) 1 06/08/2020 ondansetron (ZOFRAN) injection 4 mg 1 06/08 ondansetron ODT (ZOFRAN-ODT) disintegrating tablet 4 mg [...] 06/08/2020 documented in this encounter Care Teams Photo Equipment Technician Relationship Specialty Start Date End Date Scott Oneill MD PCP - General Internal Medicine 04/27/20 documented as of this encounter
--- OUTSIDE RECORDS SUMMARY | 2024-04-04 01:45 | XMS_ITS | Encounter Summary ---
Author Organization [facility] Address [address] [place] [address] Phone Care Team Providers Care Division Commander Name Role Phone Scott Oneill MD Primary Care Provider [phone] Reason for Visit * Auth/Cert Specialty Diagnoses / Procedures Referred By Contac t Referred To Contact Referral ID Status Reason Start Date Expiration Date Visits Re quested Visits Authorized [id number] 1 1 Encounter Details Date Type Department Care Team (Late st Contact Info) Description 06/17/2020 Home Care Visit [facility] - [address] [place] [id number] Sagar Garcia RN TRAVEL SCREENING CASE COMMUNICATION [...] on file Legal 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
--- OUTSIDE RECORDS SUMMARY | 2024-04-04 01:45 | XMS_ITS | Encounter Summary ---
Author Organization [facility] Address [address] [place] [address] Phone Care Team Providers Care Catalyst Recovery Operator Name Role Phone Scott Oneill MD Primary Care Provider [phone] Reason for Visit * Auth/Cert Specialty Diagnoses / Procedures Referred By Contamy t Referred To Contact Referral ID Status Reason Start Date Expiration Date Visits Re quested Visits Authorized [id number] 1 1 Encounter Details Date Type Department Care Team (Late st Contact Info) Description 06/23/2020 12:00 PM CDT Home Care Visit [facility] [address] [address] [address] [place] [address] Sagar Garcia RN SN HOME VISIT Social [...] on file Legal Sex Male 1:23 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 OPERATOR Gender Identity Male 12/24/2023 11:25 AM CDT Sexual Orientation Straight 12/24/2023 11 :25 AM CDT documented as of this encounter Last Filed Vital Signs Vital Sign Reading Time Taken Comments Blood Pressure - - Pulse - - Temperature - - Respiratory Rate - - Oxygen Saturation - - Inhaled Oxygen Concentration - - Weight 89.8 kg (198 lb) 06/23/2020 11:09 AM CDT Height - - Body Mass Index 32.95 06/19/2020 10:42 AM CDT documented in this encounter Plan of Treatment Not on file documented as of this encounter Visit Diagnoses Not on filedocumented in this encounter Home Health Visit - Care Plan Visit Details Visit Type -SN Home Visit Discipline -Residential Problems Problem Description Start Date Status Goals Interve ntions Homebound Status Disciplines: Residential unable to leave the home without the assistance of another person. Decreased strength, endurance and balance. Elevated fall risk; unable to negotiate steps and/or uneven surfaces independently.Jessica hensley's homebound status 06/17/2020 Active 1 goal linked to scheduled/documen yun intervention 1 goal intervention scheduled/document ed in this visit Monitor patient's vital signs every home health visit Disciplines: Residential Monitor patient's vital signs every home health visit. 06/17/2020 Active 1 goal linked to scheduled/documen yun intervention 1 problem intervention scheduled/document ed in this visit 1 goal intervention scheduled/document ed in this visit Wound Care Disciplines: Residential Wound care needed: wound #1, Left wrist. 06/17/2020 Active 1 goal linked to scheduled/documen yun intervention 1 goal intervention scheduled/document ed in this visit Wound Care Disciplines: Residential Wound care needed: wound #3, right knee. 06/17/2020 Active 1 goal linked to scheduled/documen yun intervention 1 goal intervention scheduled/document ed in this visit Wound Care Disciplines: Residential Wound care needed: wound #4, Chest. 06/17/2020 Active 1 goal linked to scheduled/documen yun intervention 1 goal intervention scheduled/document ed in this visit Wound Care Disciplines: Residential Wound care needed: wound #5, Right leg. 06/17/2020 Active 1 goal linked to scheduled/documen yun intervention 1 goal intervention scheduled/document ed in this visit Wound Care Disciplines: Residential Wound care needed: wound #6, Left knee. 06/17/2020 Active 1 goal linked to scheduled/documen yun intervention 1 goal intervention scheduled/document ed in this visit Wound Care Disciplines: Residential Wound care needed: wound #7, lower; anterior sternum. 06/17/2020 Active 1 goal linked to scheduled/documen yun intervention 1 goal intervention scheduled/document ed in this visit Wound Care Disciplines: Residential Wound care needed 06/17/2020 Active 1 goal linked to scheduled/documen yun intervention 1 goal intervention scheduled/document ed in this visit Wound Risk of Infection Disciplines: Residential Risk of infections related to wounds 06/17/2020 [...] during episode of care Description: Home land development manager to measure vital signs during every [...] appropriate care setting Completed Patient is homebound as evidenced by unable to leave the home without the [...] wound care on SNV days. Pt tolerated well and is independent with wound care. Perform dressing [...] Wound care to wound #3, right knee: 7 jorge removed from right knee. Scant bleeding from site, stopped with slight pressure. Two steri strips applied to site. Perform dressing change Description: Wound care, wound #4, Chest: Clean wound with soap and water daily. Pt may shower. Pat wound dry. Wound care to be completed by Pt or Caregiver. Wound may be left open to air. SN to preform wound care on SNV days. Problem:Wound Care Goal:Progression towards healing Completed Perform dressing change Description: Wound care to wound 5, right knee. Clean with soap and water daily. Pt may shower. Pat wound dry. Wound may be left open to air. Wound care to be compeled by Pt or Caregiver. Wound care to be completed by SN on SNV days. Problem:Wound Care Goal:Progression towards healing Completed Perform dressing change Description: Wound care to wound #6, Left knee: wound to be cleaned with soap and water daily. Pt may shower. Pat wound dry. Wound may be left open to air. Wound care to be completed by Pt or Caregiver. SN to complete wound care on SNV days. Problem:Wound Care Goal:Progression towards healing Completed Perform dressing change Description: Wound care to wound #7, lower; anterior sternum. Wound to be cleaned with soap and water daily. Pt may shower. Pat wound dry. Wound may be left open to air. Wound care to be completed by Pt or Caregiver. Wound care to be completed by SN on SNV days. Problem:Wound Care Goal:Progression towards healing Completed Skilled assessment wound Description: Full wound assessment including measurement weekly. Wound assessment each visit. Post-op CV Assessment. Please remove any jorge and/or sutures 12-14 days post-op ( week of 06/19/20 ) . Please call Dr. Cordero's office for any post-op concerns. [phone] Problem:Wound Care Goal:Progression towards healing Completed Disposal of Dressing Description: Dispose of soiled dressing by place in bag then place in patient's trashcan. Problem:Wound Risk of Infection Goal:Knowledgeable of infection Completed Instruct patient/family/caregiv er on infection control and safe disposal of dressing materials Description: Instruct patient/caregiver on how to recognized signs and symptoms of infection and when to notify INSPECTOR SALVAGE and/or physician per Wound Education Booklet. Instruct [...] bag, seal, and place in regular trash. documented in this encounter Care Teams Catalyst Recovery Operator Relationship Specialty Start Date End Date Scott Oneill MD PCP - General Internal Medicine 04/27/20 documented as of this encounter
--- OUTSIDE RECORDS SUMMARY | 2024-04-04 01:45 | XMS_ITS | Encounter Summary ---
Author Organization [facility] Address [address] [place] [address] Care Team Providers Care Building Equipment Operator Name Role Phone Scott Oneill MD Primary Care Provider [phone] Reason for Visit * Reason Onset Date Comments Post D/C Assessment 06/16/2020 Encounter Details Date Type Department Care Team (Late st Contact Info) Description 06/16/2020 Telephone Cardiovascular and Thoracic Surgery [address] [place] [address] Sheldon Giraldo, RN [address] [address] [facility] [address] [place] [address] Post D/C Assessment Social History Tobacco Use Types Packs/Day Years [...] on file 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 She reports he is doing well. He has no c/o sob or uncontrolled pain. He is walking well. We reviewed basic d/c instructions, and she verbalized understanding. He has all his new medications in the home. I informed them they will have a N visit this weekend to establish his Home Health Care. They are aware of his follow-up appointment date and time. I encouraged them to call our office for any questions or concerns. documented in this encounter Plan of Treatment Not on file documented as of this encounter Visit Diagnoses Not on filedocumented in this encounter Care Teams Building Equipment Operator Relationship Specialty Start Date End Date Scott Oneill MD PCP - General Internal Medicine 04/27/20 documented as of this encounter
--- OUTSIDE RECORDS SUMMARY | 2024-04-04 01:45 | XMS_ITS | Encounter Summary ---
Author Organization [facility] Address [address] [place] [address] Phone Care Team Providers Care Rehab Aide Name Role Phone Scott Oneill MD Primary Care Provider [phone] Reason for Visit * Auth/Cert Specialty Diagnoses / Procedures Referred By Contac t Referred To Contact Referral ID Status Reason Start Date Expiration Date Visits Re quested Visits Authorized [id number] 1 1 Encounter Details Date Type Department Care Team (Late st Contact Info) Description 06/17/2020 Home Care Visit [facility] Home Health - [address] [place] [address] Sagar Garcia RN SBAR-START OF CARE/RESUMPTION Social History Tobacco Use Types Packs/Day Years [...] on file 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
--- OUTSIDE RECORDS SUMMARY | 2024-04-04 01:46 | XMS_ITS | Encounter Summary ---
Author Organization [facility] Healthcare Address [address] [place] [address] Care Team Providers Care Tennis Centre Manager Name Role Phone Scott Oneill MD Primary Care Provider [phone] Encounter Details Date Type Department Care Team (Latest Contact Info) Description 06/09/2020 11:00 AM SECONDARY ART TEACHER - 06/09/2020 11:59 PM SECONDARY ART TEACHER Hospital Encounter [facility] Vascular Lab [address] [place] [phone] Hernan Cordero MD [address] [facility] [place] [address] Discharge Disposition: Discharge to home or self [...] on file Legal Sex Male 1:23 AM SECONDARY ART TEACHER Gender Identity Male 12/24/2023 11:25 AM [...] 04/06/2020 atorvastatin (LIPITOR) 20 mg tablet Take 20 mg by mouth daily 02/11/2020 1 atorvastatin (LIPITOR) 20 mg tablet Take 2 tablets (40 mg total) by mouth daily 06/15/2020 4 gabapentin (NEURONTIN) 300 mg capsule Take 300 mg by mouth 2 (two) times a day 01/26/2020 3 oxyCODONE-acetam inophen (PERCOCET) 5-325 mg per tabletIndication s:Pain Take 1-2 tablets by mouth every 6 (six) hours as needed for pain 06/15/2020 1 traMADoL (ULTRAM) 50 mg tablet Take 50 mg by mouth 2 (two) times a day as needed 06/17/2018 1 traMADoL (ULTRAM) 50 mg tabletIndication s:Neuropathic Pain,Pain Take 50 mg by mouth 2 (two) times a day as needed for pain. rx [id number] QTY 29 [facility] Indications: neuropathic pain, pain [...] Name Priority Date/Time Associated Diagnosis Comments US CAROTIDS DUPLEX BILATERAL IP Routine 06/09/2020 10:00 PM SECONDARY ART TEACHER documented in this encounter Results * US Carotids Duplex Bilateral (06/09/2020 10:00 PM SECONDARY ART TEACHER) Anatomical Region Laterality Modality Vascular Bilateral Ultrasound [...] MD IMG US PROCEDURES Final Res ult documented in this encounter Visit Diagnoses Not on filedocumented in this encounter Care Teams Tennis Centre Manager Relationship Specialty Start Date End Date Scott Oneill MD PCP - General Internal Medicine 04/27/20 documented as of this encounter
--- OUTSIDE RECORDS SUMMARY | 2024-04-04 01:46 | XMS_ITS | Encounter Summary ---
Author Organization [facility] Address [address] [place] [address] Care Team Providers Care Backup Operator Name Role Phone Scott Oneill MD Primary Care Provider [phone] Reason for Visit * Reason Comments Follow-up after echo on Encounter Details Date Type Department Care Team (Late st Contact Info) Description 05/22/2020 8:45 AM TRUCK OPERATOR Office Visit [facility] Cardiology [address] [place] [address] Kathrin Austin MD [address] [place] [id number] Angina pectoris syndrome (CMS/HCC) (Primary Dx); Chronic deep vein thrombosis (DVT) of proximal vein of lower extremity, unspecified laterality (CMS/HCC); Hypertension secondary to other renal disorders; Stage 3b chronic kidney disease; Gastrointestinal hemorrhage associated with peptic ulcer; Mixed hyperlipidemia; Family history of early CAD Social History Tobacco Use Types Packs/Day Years Used Date Smoking Tobacco: Former Smokeless Tobacco: Never Alcohol Use Standard Drinks/Week Comments Yes 0 (1 standard drink = 0.6 oz pur e alcohol) 6 beers a year Sex and Gender Information Value Date Recorded Sex Assigned at Not on file Legal Sex Male 1:23 AM TRUCK OPERATOR Gender Identity Male 12/24/2023 11:25 AM CDT Sexual Orientation Straight 12/24/2023 11 :25 AM CDT documented as of this encounter Last Filed Vital Signs Vital Sign Reading Time Taken Comments Blood Pressure 134/62 05/22/2020 8:40 AM TRUCK OPERATOR Pulse 61 05/22/2020 8:40 AM TRUCK OPERATOR Temperature - - Respiratory Rate - - Oxygen Saturation 94% 05/22/2020 8:40 AM TRUCK OPERATOR Inhaled Oxygen Concentration - - Weight 96.1 kg (211 lb 12.8 oz) 05/22/2020 8:40 AM TRUCK OPERATOR Height 165.1 cm (5' 5 ) 05/22/2020 8:40 AM TRUCK OPERATOR Body Mass Index 35.25 05/22/2020 8:40 AM TRUCK OPERATOR documented in this encounter Progress Notes * Kathrin Austin MD - 05/22/2020 8:45 AM CST [facility] DATE OF VISIT: 05/22/2020 CHIEF COMPLAINT Chief Complaint Patient presents with ??? Follow-up after echo on 05/18/20 JOSE Nielsen is a 65 y.o. 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 He underwent Lexiscan stress test at [facility] that was normal with [...] by sitting up. Denies dizziness, syncope, palpitations. MEDICAL HISTORY Past Medical History: Diagnosis Date ??? Arthritis ??? DVT (deep venous thrombosis) (CMS/HCC) ??? Hyperlipidemia ??? Hypertension ??? Overweight ??? Renal failure ??? Skin cancer Past Surgical History: Procedure Laterality Date ??? NO PAST SURGERIES Social History Tobacco [...] mg tablet atorvastatin (LIPITOR) 20 mg tablet calcium carbonate (Calcium 500) 1,250 MG (500 mg of elemental calcium) tablet furosemide (LASIX) 40 mg tablet gabapentin (NEURONTIN) 300 mg capsule labetaloL (NORMODYNE,TRANDATE) 200 mg tablet potassium chloride ER 20 mEq CR tablet traMADoL (ULTRAM) 50 mg tablet Vitamin D2 1,250 mcg (50,000 unit) capsule ALLERGIES No Known Allergies REVIEW OF SYSTEMS Review of Systems Constitution: Negative for chills, fever and malaise/fatigue. HENT: Positive for hearing loss. Negative for [...] allergies and hives. PHYSICAL EXAM Vitals BP 134/62 (BP Location: Left arm, Patient Position: Sitting) Pulse 61 Ht 165.1 cm (5' 5 ) Wt 96.1 kg (211 lb 12.8 oz) SpO2 94% BMI 35.25 kg/m?? Body mass index is 35.25 kg/m??. Physical Exam Constitutional: He is oriented [...] has no rales. He exhibits no tenderness. Abdominal: Soft. He exhibits no distension and [...] Judgment normal. LABS AND OTHER DIAGNOSTIC TESTS No results found for: WBC, HGB, HCT, MCV, PLT Chemistry No results found for: SODIUM, POTASSIUM, CHLORIDE, CO2, BUNSER, CREATININE, GLUCOSE No results found for: CALCIUM, ALKPHOS, AST, ALT, BILITOT EKG2/06/2020-sinus bradycardia Lexiscan stress test March [address] Negative for ischemia. Ejection fraction 63% ASSESSMENT Diagnoses and all orders for this visit: Angina pectoris syndrome (CMS/HCC) (Primary) Chronic deep vein thrombosis (DVT) of proximal vein of lower extremity, unspecified laterality (CMS/HCC) Hypertension secondary to other renal disorders Stage 3b chronic kidney disease Gastrointestinal hemorrhage associated with peptic ulcer Mixed hyperlipidemia Family history of early CAD PLAN/RECOMMENDATIONS -regards to chest pain, it is angina by description. He gets pain in his chest upon ambulation relieved by rest. He underwent stress testing that was normal. However I am concerned about balanced ischemia and false negative stress test. Patient smoked for at least 30 years. Seven of his brothers had myocardial infarction. His dad early at age 63 with heart attack. I discussed with the patient risks and benefits of cardiac catheterization and informed him about the risk renal failure. [place] discussed the risk of bleeding especially GI bleeding given his significant at GI bleeding 2018.I discussed his case with his orthotist prosthetist Dr. garcia and we agreed to split his procedure to do diagnostic images and if we have to fix something then we have to bring him back to minimize dye exposure. He was seen by GI and he is scheduled for EGD on June 20. So far he is tolerating Eliquis that he takes for DVT but he does not take any aspirin or antiplatelet agents. I inform patient if he gets chest pain that is not going away in 10 minutes he should be calling EMS. In regards to stage 3 kidney disease it seems that the patient has glomerular nephritis and followswith Nephrology. - in regards to hyperlipidemia, continue statin. -regards to blood pressure and hypertension, blood pressure is stable. Continue current treatment. Follow up in the office in after cardiac catheterization Kathrin Austin MD K OPERATOR documented in this encounter Plan of Treatment Not on file documented as of this encounter Visit Diagnoses Diagnosis Angina pectoris syndrome (CMS/HCC) (HCC)- Primary Other and unspecified angina pectoris Chronic deep vein thrombosis (DVT) of proximal vein of lower extremity, unspecified laterality (HCC) Hypertension secondary to other renal disorders Stage 3b chronic kidney disease (HCC) Gastrointestinal hemorrhage associated with peptic ulcer Mixed hyperlipidemia Family history of early CAD Family history of ischemic heart disease documented in this encounter Care Teams Backup Operator Relationship Specialty Start Date End Date Scott Oneill MD PCP - General Internal Medicine 04/27/20 documented as of this encounter
--- OUTSIDE RECORDS SUMMARY | 2024-04-04 01:46 | XMS_ITS | Encounter Summary ---
Author Organization [facility] Healthcare Address [address] [place] [address] Care Team Providers Care Sas Etl Developer Name Role Phone Scott Oneill MD Primary Care Provider [phone] Encounter Details Date Type Department Care Team (Latest Contact Info) Description 06/09/2020 6:05 AM CAMP NURSE - 06/09/2020 10:59 AM [facility] Hospital Encounter [facility] Vascular Lab [facility] [place] [address] Discharge Disposition: Discharge to home or self [...] on file Legal Sex Male 1:23 AM CAMP NURSE Gender Identity Male 12/24/2023 11:25 AM [...] a day as needed for pain. rx [id number] QTY 29 [facility] Indications: neuropathic pain, pain 06/09/2020 [...] Name Priority Date/Time Associated Diagnosis Comments US VEIN MAPPING DUPLEX LOWER EXTREMITY BILATERAL IP Routine 06/09/2020 10:30 PM CAMP NURSE documented in this encounter Results * US Vein Mapping Duplex Lower Extremity Bilateral (06/09/2020 10:30 PM CAMP NURSE) Anatomical Region Laterality Modality Vascular Bilateral Ultrasound [...] LLANOS IMG US PROCEDURES Final Resu lt documented in this encounter Visit Diagnoses Not on filedocumented in this encounter Care Teams Sas Etl Developer Relationship Specialty Start Date End Date Scott Oneill MD PCP - General Internal Medicine 04/27/20 documented as of this encounter
--- OUTSIDE RECORDS SUMMARY | 2024-04-04 01:46 | XMS_ITS | Encounter Summary ---
Author Organization [facility] Address [address] [place] [address] Care Team Providers Care Tree Trimmer Helper Name Role Phone Unavailable Primary Care Provider Unavailabl e Encounter Details Date Type Department Care Team (Late st Contact Info) Description 04/02/2017 Orders Only [facility] Cardiology [address] [place] [id number] Provider, Rivera, [facility] [place] [address] Social History Tobacco Use Types Packs/Day Years Used Date Smoking Tobacco: Never Assessed Sex and Gender Information Value Date Recorded Sex Assigned at Not on file 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 Gender Identity Male 12/24/2023 11:25 AM CDT Sexual Orientation Straight 12/24/2023 11 :25 AM CDT documented as of this encounter Plan of Treatment Not on file documented as of this encounter Procedures Procedure Name Priority Date/Time Associated Diagnosis Comments TRANSTHORACIC ECHO (TTE) COM PLETE W DOPPLER/CF Routine 03/26/2017 documented in this encounter Results * Transthoracic Echo Complete W Doppler/CF (03/26/2017) Anatomical Region Laterality Modality Ultrasound us Historical Provider CV ECHO PROCEDURES Final Result documented in this encounter Visit Diagnoses Not on filedocumented in this encounter
--- OUTSIDE RECORDS SUMMARY | 2024-04-04 01:46 | XMS_ITS | Encounter Summary ---
Author Organization [facility] Address [address] [place] [address] Care Team Providers Care Grounds Manager Name Role Phone Scott Oneill MD Primary Care Provider [phone] Encounter Details Date Type Department Care Team (Late st Contact Info) Description 06/12/2020 7:30 AM CDT Anesthesia Event [facility] Operating Room [address] [place] [address] Red Kamara MD [address] [place] [address] Anesthesia Record Procedure Summary Procedure Name Responsible Anesthesiologist Anesthesia Start Time Anesthesia Stop Time CORONARY ARTERY BYPASS GRAFT x 3 using left internal mammary artery, endoharvested left radial artery, and bilateral endoharvested greater saphenous vein graft. (Chest) Red Kamara MD 06/12/20 0730 06/12/20 1308 Events Date Time Event Comment 06/12/2020 0730 In Room 0730 An Start 0730 An Start Data 0743 An Induction The patient was reevaluated immediately before moderate or deep sedation use and before anesthesia induction. 0745 An Intubation 0756 Perfusion Ready 0816 Anesthesia Ready 0837 Incision Start 0838 an kev now 0844 Start Data 1017 CPB ON 1017 Quick Note 18fr. Nieves o ptiflow aortic cannula 29-37fr.nieves 2 stage venous cannula in rt. Atrial appendage 1019 Aortic Clamp ON 1055 Ultrafiltration On 1106 Ultrafiltration Off 1112 Rewarming Start 1114 Ultrafiltration On Z buff 1137 Ultrafiltration Off 1141 Aortic Clamp OFF 1143 an kev now 1151 CPB OFF 1236 an stop data 1258 Out of Room 1308 Handoff to RN I completed my handoff [...] disposition at the time of handoff: ICU 1308 An Stop 1313 an stop data Meds Name Total fentaNYL 1,000 mcg lidocaine (cardiac) syringe 2 % 100 mg succinylcholine 100 mg norepinephrine (LEVOPHED) 8, 000 mcg in dextrose 5% 250 mL (32 mcg/mL) infusion 0.8 mg ceFAZolin (ANCEF) 2,000 mg/20 mL in ster ile water (premix) 2,000 mg 2,000 mg nitroglycerin infusion 165 mcg propofol 100 mg propofol 844.46 mg phenylephrine (GINA-SYNEPHRIN E) 1 mg in sodium chloride 0.9% 10 mL solution 150 mcg rocuronium 100 mg heparin 1,000 unit/ml 47,000 Units heparin injection 1,000 unit/mL 10,000 U nits aminocaproic acid (AMICAR) bolus 10 g 2. 5 g aminocaproic acid (AMICAR) infusion 15 g /60 mL 2.37 g phenylephrine (GINA-SYNEPHRINE) injection 5,800 mcg Lactated Ringer's (LR) 200 m L with albumin 100 mL, heparin 5 mL, mannitol 25 g solution 650 mL sodium bicarbonate injection 1 mEq/mL 75 mEq lidocaine PF (XYLOCAINE) injection 2 % 1 00 mg protamine 500 mg potassium arrest solution (2 meq/mL) 18 mEq Lactated Ringer's (LR) 16 mL with adenosine (ADENOCARD) 14 mL, lidocaine (cardiac) (XYLOCAINE) 5 mL, magnesium sulfate 4 g solution 45 mL D50W 25 g insulin regular 15 Units calcium chloride 1 g glycopyrrolate 600 mcg neostigmine 3 mg sodium chloride 0.9% bolus 2,000 mL * Agents Name O2 Isoflurane Inspired Isoflurane * Blood Name Total PRBC - CROSSMATCHED 500 mL Lines, Drains, and Airways Type Details Placement Removal Peripheral IV Placement Date: 06/08/20; Placement Time: 1200; Existing LDA Placed by: Other hospital; Change Due: 06/12/20; Catheter Size: 22 G; Orientation: Left, Posterior; Location: Hand; Removal Date: 06/12/20; Removal Time: 1308 06/08/20 1200 by Rocío Ling RN 06/12/20 1308 by Joy Elder RN RETIRED Surgical Site 06/12/20; Lower, Anterior; Sternum; MCT; 07/03/20 06/12/20 0000 by Maliha Tamez RN 07/03/20 0000 by Britney Aparicio RN Urethral Catheter Placement Date: 06/12/20; Placement Time: 0754; Inserted by: Justina ROSE; Type: Temperature probe; Size: 16 Fr.; Balloon Size: 10 mL; Removal Date: 06/14/20; Removal Time: 0650; Removal Reason: Per protocol 06/12/20 0754 by Zeyad Joseph RN 06/14/20 0650 by Gertrudis Bhatt RN RETIRED Surgical Site 06/12/20; 0847; Le ft; Wrist; healed; 07/07/20; 1246 06/12/20 0847 by Zeyad Joseph RN 07/07/20 1246 by Sarah Carrizales RN RETIRED Surgical Site 06/12/20; 0847; Le ft; Arm; 06/17/20 06/12/20 0847 by Zeyad Joseph RN 06/17/20 0000 by Sagar Garcia, [place] RETIRED Surgical Site 06/12/20; 0847; Ri ght; Knee; 07/03/20 06/12/20 0847 by Zeyad Joseph RN 07/03/20 0000 by Britney Aparicio RN RETIRED Surgical Site 06/12/20; 0852; Ch est; 10/04/20 06/12/20 0852 by Zeyad Joseph RN 10/04/20 0000 by Polly Saldaña RN RETIRED Surgical Site 06/12/20; 0854; Ri ght; Leg; 07/03/20 06/12/20 0854 by Zeyad Joseph RN 07/03/20 0000 by Britney Aparicio RN ETT Placement Date: 06/12/20; Placement Time: 911 (created via procedure documentation); Mask Ventilation: 0; Technique: Video laryngoscopy; Type: ETT - single; Single Lumen Tube Size: 8 mm; Cuffed: Yes; Laryngoscope: Omar; Blade Size: 4; Location: Oral; Insertion Attempts: 1; Placement Verification: Auscultation, Capnometry; Removal Date: 06/12/20; Removal Time: 1615 (prior nurse) 06/12/20 09 by Red Kamara MD 06/12/20 161 by Shyann Johnson RN Arterial Line Placement Date: 06/12/20; Placemnt Time: 911 (created via procedure documentation); Size: 20 G; Orientation: Right; Location: Radial; Securement: Transparent dressing; Removal Date: 06/13/20; Removal Time: 1445 06/12/20 09 by Red Kamara MD 06/13/20 1445 by Wen De La Rosa RN Introducer Placement Date: 06/12/20; Placement Time: 913 (created via procedure documentation); Existing LDA Placed by: Yes; Site Prep Agent Dried: Yes; Size: introducer sheath; Insertion Attempts: 06/13/20; Securement: 1030 06/12/20 0914 by Red Kamara MD 06/13/20 1030 by Wen De La Rosa RN PA Catheter Placement Date: 06/12/20; Placement Time: 913 (created via procedure documentation); Site Prep: Chlorhexidine; Removal Date: 06/13/20; Removal Time: 1030 06/12/20 0914 by Red Kamara MD 06/13/20 1030 by Wen De La Rosa RN CVC Triple Lumen Placement Date: 06/12/20; Placement Time: 913 (created via procedure documentation); Hand Hygiene: Yes; Sterile Barrier Used: Yes; Size: 7 Fr; Orientation: Right; Location: Internal jugular; Placement Verification: Ultrasound; Removal Date: 06/15/20; Removal Time: 1350 06/12/20 0914 by Red Kamara MD 06/15/20 1350 by Maliha Tamez RN RETIRED Surgical Site 06/12/20; 0949; Le ft; Knee; 07/03/20 06/12/20 0949 by Zeyad Joseph RN 07/03/20 0000 by Britney Aparicio RN RETIRED Surgical Site 06/12/20; 1008; Le ft; Leg; 07/03/20 06/12/20 1008 by Zeyad Joseph RN 07/03/20 0000 by Britney Aparicio RN Chest Tube Placement Date: 06/12/20; Placement Time: 1125; Inserted by: MD Cordero; Orientation: Left; Location: Pleural; Size: 28 Fr (curved); Drainage System: Suction; Sutures Placed: 1; Removal Date: 06/14/20; Removal Time: 1040 06/12/20 1125 by Zeyad Joseph RN 06/14/20 1040 by Maliha Tamez RN Chest Tube Placement Date: 06/12/20; Placement Time: 1125; Inserted by: MD Cordero; Orientation: Anterior; Location: Mediastinal; Size: 32 Fr (straight); Drainage System: Suction; Sutures Placed: 1; Removal Date: 06/14/20; Removal Time: 1040 06/12/20 1125 by Zeyad Joseph RN 06/14/20 1040 by Maliha Tamez RN Pacer Wires 06/12/20; 1226; MD Cordero; Ventricular (1V); 06/14/20; 1040 06/12/20 1226 by Zeyad Joseph RN 06/14/20 1040 by Maliha Tamez RN NG/OG/Gastric tube Placement Date: 06/12/20; Placement Time: 1230; Inserted by: joshua; Type: Orogastric; Size: 18 Fr; Location: Center mouth; Removal Date: 06/12/20; Removal Time: 1400 (with extubation) 06/12/20 1230 by Red Kamara MD 06/12/20 1400 by Shyann Johnson RN documented in this encounter Social History [...] on file 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 Procedure Summary Date: 06/12/20 Room / Location: [facility] / [facility] Anesthesia Start: 30 Anesthesia Stop: 1308 Procedure: CORONARY ARTERY BYPASS GRAFT x 3 using left internal mammary artery, endoharvested left radial artery, and bilateral endoharvested greater saphenous vein graft. (N/A Chest) Diagnosis: (Coronary artery disease) Surgeons: Hernan Cordero MD Responsible Provider: Red Kamara MD Anesthesia Type: general ASA Status: 4 Anesthesia Type: general Last vitals BP 132/73 (BP Location: Left arm, Patient Position: Sitting) Pulse 61 Temp 36.8 ??C (98.3 ??F) (Tympanic) Resp 15 SpO2 98% Anesthesia Post Evaluation Patient location during evaluation: ICU Patient participation: waiting for patient participation Post-procedure mental status: sedated. Pain score: unable to evaluate Airway patency: adequate Evidence of recall: unable to evaluate Anesthetic complications: no Cardiovascular status: acceptable Respiratory status: acceptable Hydration status: acceptable Pt is: normothermic Nausea/Vomiting status: unable to evaluate * Anesthesia Procedure Notes - Red Kamara MD - 06/12/2020 9:15 AM CDTAssociated Order(s): SUZAN SUZAN Date/time: Staff: Performed by: Anesthesiologist: Red [...] code: SUZAN placement and diagnostic exam, non-congenital (59182) ICD code(s) for medical necessity: R93.1 - [...] inferior: normal 16- Apical septal: normal 17- [place]: normal Valves: Aortic Valve: Annulus: normal Leaflet [...] is normal LV size and systolic function. Thereare no regional wall motion abnormalities. There is [...] the written comments contained within the report. * Anesthesia Procedure Notes - Red Kamara MD - 06/12/2020 9:14 AM CDTAssociated Order(s): Central Venous Line Central Venous Line Patient location: OR Indication: central venous access Staff: Placed by: Anesthesiologist: Red Kamara MD Procedure prep: Patient position: Trendelenburg. PPE: provider hand hygiene, provider hat/mask, sterile gloves, sterile gown, large sterile drape, full body drape, sterile gel and sterile probe covers. Prep solution: chlorhexadine/alcohol was applied to area. Ultrasound was prepped into field. Central line: Laterality: right Site: internal jugular Catheter type: triple lumen Catheter size: 7 Fr. Catheter length: 16 cm Catheter length at skin: 16 cm Technique: anatomy identified with ultrasound, Seldinger technique, wire threaded easily and wire removed intact Venous verification: ultrasound confirmation Post insertion: all ports aspirated, all ports flushed easily, line sutured in place and occlusive dressing applied Number of attempts: 1 Assessment: Events: patient tolerated procedure well with no complications * Anesthesia Procedure Notes - Red Kamara MD - 06/12/2020 9:12 AM CDTAssociated Order(s): Central Venous Line Central Venous Line Patient location: OR Indication: central venous access and CVP monitoring Staff: Placed by: Anesthesiologist: Red Kamara MD Procedure prep: Patient position: Trendelenburg. PPE: provider hand hygiene, provider hat/mask, sterile gloves, sterile gown, large sterile drape, full body drape, sterile gel and sterile probe covers. Prep solution: chlorhexadine/alcohol was applied to area. Ultrasound was prepped into field. Central line: Laterality: right Site: internal jugular Catheter type: introducer sheath Catheter size: 9 Fr. Technique: anatomy identified with ultrasound, Seldinger technique, wire threaded easily and wire removed intact Venous verification: ultrasound confirmation Post insertion: all ports aspirated, all ports flushed easily, line sutured in place and occlusive dressing applied Number of attempts: 2 Other sites attempted: Wire did not thread on first stick. Threaded easily on 2nd stick. PA catheter placement: PA catheter type: non-oximetric PA catheter size: 7.5 Fr PA catheter laterality: right PA catheter site: internal jugular Placement guided by: pressure tracing changesNo Assessment: Events: patient tolerated procedure well with no complications * Anesthesia Procedure Notes - Red Kamara MD - 06/12/2020 9:12 AM CDTAssociated Order(s): Arterial Line Arterial Line Indication: continuous blood pressure monitoring and blood sampling needed Staff: Supervising provider: Red Kamara MD Placed by: Anesthesiologist: Abhilash Allen CRNA Procedure prep: Prep solution: chlorhexadine/alcohol Prep: provider hat/mask Arterial line: Catheter size: 20 gauge Catheter length: 1 and 3/8 inch Catheter type: wire-guided catheter Seldinger technique: yes Laterality: right Site: radial artery Line secured: Tegaderm Results: good waveform and good blood return Number of attempts: 1 Assessment: Events: patient tolerated procedure well with no complications * Anesthesia Procedure Notes - Red Kamara MD - 06/12/2020 9:07 AM CDTAssociated Order(s): Airway Airway Patient location: OR Urgency: elective Indications for airway management: anesthesia Difficult airway: no Staff: Placed by: Anesthesiologist: Red Kamara MD Emergent airway documentation: Risks and benefits discussed: yes Consent obtained: yes Consent given by: patient Airway prep: Preoxygenated: yes Patient position: sniffing Mask difficulty assessment: 0 - not attempted Sedation level during airway: GA Final airway details: Final airway type: endotracheal airway Tube type: ETT ETT size: 8.0 mm Cuffed: yes Technique used for successful ETT placement: video laryngoscopy Devices/Methods used in placement: intubating stylet Insertion site: oral Blade type: Omar Video blade type: Helms Blade size: 4 Cormack-Lehane (video): grade I - full view of glottis Cuff inflated with: air ETT to gums: 23 cm Placement verified by: auscultation and CO2 detection Airway secured with: silk tape Number of attempts: 1 * Anesthesia Preprocedure Evaluation - Red Kamara MD - 06/12/2020 7:20 AM CDT Images from the original note were not included. Anesthesia Evaluation Britton Nielsen Sr. is a 65 y.o. male Procedure(s): CORONARY ARTERY BYPASS GRAFT (inpatient) * No Diagnosis Codes entered * HISTORY Past Medical History Cardiovascular + Hypertension + DVT/PE (on eliquis at home.) Number of DVT/PE episodes: 2. Respiratory Cigarette smoker: former smoker; quit 9 years ago. PFTs performed at [facility]. Hepatic / Heme Comments: History of iron deficiency anemia 2/2 duodenal ulcers. Also history of anemia associated with CKD treated with epo Gastrointestinal Comments: H/o duodenal ulcer. Treated with clips/embo in 2018. No bleeding since. 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 Patient Active Problem List Diagnosis ??? Angina pectoris syndrome (CMS/HCC) ??? Stage 3b chronic kidney disease ??? Family history of early CAD ??? Gastrointestinal hemorrhage associated with peptic ulcer ??? Chronic deep vein thrombosis (DVT) of proximal vein of lower extremity (CMS/HCC) ??? Mixed hyperlipidemia ??? Hypertension Past Medical History: Diagnosis Date ??? Arthritis ??? DVT (deep venous thrombosis) (CMS/HCC) ??? History of transfusion ??? Hyperlipidemia ??? Hypertension ??? Overweight ??? Renal failure ??? Skin cancer ??? Sleep apnea Past Surgical History: Procedure Laterality Date ??? NO PAST SURGERIES No Known Allergies Med List Status: Pharmacy Complete Set By: Britton Frank [facility] at 06/08/2020 6:11 PM Taking? Last Dose Start Date End Date Provider apixaban (ELIQUIS) 5 mg tablet Past Week -- -- Rivera Veras MD atorvastatin (LIPITOR) 20 mg tablet 06/07/2020 02/11/20 -- Rivera Veras MD furosemide (LASIX) 40 mg tablet 06/07/2020 03/27/20 -- Rivera Veras MD gabapentin (NEURONTIN) 300 mg capsule 06/07/2020 01/26/20 -- Rivera Veras MD labetaloL (NORMODYNE,TRANDATE) 200 mg tablet 06/07/2020 03/26/20 -- Rivera Veras MD potassium chloride ER 20 mEq CR tablet 06/07/2020 04/06/20 -- Rivera Veras MD traMADoL (ULTRAM) 50 mg tablet 06/17/18 -- Rivera Veras MD Vitamin D2 1,250 mcg (50,000 unit) capsule Past Week 02/11/20 -- Rivera Veras MD Current Facility-Administered Medications: ??? [MAR Hold] acetaminophen (TYLENOL) tablet 650 mg, 650 mg, oral, Q4H PRN ??? [MAR Hold] aluminum-magnesium hydroxide-simethicone (MAALOX MAX) 80-80-8 mg/mL oral suspension 20 mL, 20 mL, oral, Q4H PRN, 20 mL at 06/09/20 193 ??? [MAR Hold] atorvastatin (LIPITOR) tablet 20 mg, 20 mg, oral, Daily, 20 mg at 06/11/20 0921 ??? ceFAZolin (ANCEF) 2,000 mg/20 mL in sterile water (premix) 2,000 mg, 2,000 mg, intravenous, Once ??? [MAR Hold] cyanocobalamin (Vitamin B-12) injection 1,000 mcg, 1,000 mcg, subcutaneous, Q30 Days, 1,000 mcg at 06/10/201716 ??? [MAR Hold] epoetin live-epbx (RETACRIT) (10,000 unit/mL) injection 20,000 Units, 20,000 Units, subcutaneous, Once per day on Fri, 20,000 Units at 06/10/201716 ??? [MAR Hold] gabapentin (NEURONTIN) capsule 300 mg, 300 mg, oral, Nightly, 300 mg at 06/11/202004 ??? [MAY Hold] heparin 5,000 unit/mL injection 2,000 Units, 2,000 Units, intravenous, Q6H PRN OR [MAR Hold] heparin 5,000 unit/mL injection 3,000 Units, 3,000 Units, intravenous, Q6H PRN ??? heparin in 0.45% sodium chloride 25,000 units/250 mL (100 units/mL) infusion (premix), 0-33 Units/kg/hr, intravenous, Titrated, Stopped at 06/12/20 0602 ??? [MAR Hold] labetaloL (NORMODYNE,TRANDATE) tablet 200 mg, 200 mg, oral, Q8H ANUEL, 200 mg at 06/12/20 0603 ??? [MAR Hold] nitroglycerin (NITROSTAT) sublingual tablet 0.4 mg, 0.4 mg, sublingual, Q5 Min PRN, 0.4 mg at 06/09/20 194 ??? nitroglycerin in dextrose 5% 50 mg/250 mL (200 mcg/mL) infusion (premix), 0- 50 mcg/min, intravenous, Titrated, Last Rate: 15 mL/hr at 06/12/20211, 50 mcg/min at 06/12/20211 ??? [MAR Hold] ondansetron ODT (ZOFRAN-ODT) disintegrating tablet 4 mg, 4 mg, oral, Q6H PRN OR [MAR Hold] ondansetron (ZOFRAN) injection 4 mg, 4 mg, intravenous, Q6H PRN ??? [MAR Hold] sodium chloride 0.9% flush 0.5-20 mL, 0.5-20 mL, intra-catheter, Q8H ANUEL, 10 mL at 06/11/20 0601 ??? [MAR Hold] sodium chloride 0.9% flush 0.5-20 mL, 0.5-20 mL, intra-catheter, PRN ??? sodium chloride 0.9% flush 0.5-20 mL, 0.5-20 mL, intra-catheter, PRN ??? sodium chloride 0.9% infusion, 30 mL/hr, intravenous, Continuous, Last Rate: 30 mL/hr at 06/12/20 001, 30 mL/hr at 06/12/20 001 ??? sodium chloride 0.9% infusion, 10 mL/hr, intravenous, Continuous PRN ??? vancomycin 1500 mg/250 mL in sodium chloride 0.9% (premix) 1,500 mg, 1,500 mg, intravenous, Once, 1,500 mg at 06/12/20 0713 Social History Tobacco Use Smoking Status Former Smoker Smokeless Tobacco Never Used Substance and Sexual Activity Alcohol Use Yes Comment: 6 beers a year Substance and Sexual Activity Drug Use Not Currently Family History Problem Relation Age of Onset ??? Heart disease Mother ??? Heart disease Father ??? Other (Septic ) Sister ??? Cancer Brother Vitals: 06/12/20 0614 06/12/20 0615 06/12/20 0704 BP: 153/77 166/62 135/64 Pulse: 74 67 60 Resp: 22 Temp: 36.8 ??C (98.3 ??F) SpO2: 98% 99% 95% PT: 06/08/2020: 12.8 sec INR: 06/08/2020: 1.2 APTT: 06/12/2020: 75 sec* Hgb A1C: 06/10/2020: 5.3 % CBC RBC: 06/12/2020: 2.88 M/cumm* RDW: No results found for requested labs within last 720 hours. MCHC: 06/12/2020: 32.2 g/dL* MCH: 06/12/2020: 28.5 pg MCV: 06/12/2020: 88.5 fL Hct: 06/12/2020: 25.5 %* Hgb: 06/12/2020: 8.2 g/dL* WBC: 06/12/2020: 5.1 K/cumm MPV: 06/12/2020: 10.1 fL Platelets: 06/12/2020: 148 K/cumm* RDW CV: 06/12/2020: 15.5 %* RDW Sd: 06/12/2020: 49.5 fL* BMP Glucose: 06/12/2020: 94 mg/dL Calcium: 06/12/2020: 8.7 mg/dL Sodium: 06/12/2020: 139 mmol/L Potassium: 06/12/2020: 4.0 mmol/L CO2: 06/12/2020: 23 mmol/L Chloride: 06/12/2020: 105 mmol/L BUN: 06/12/2020: 26 mg/dL* Creatinine: 06/12/2020: 2.20 mg/dL* DOS Physical Exam Medical history, medications, and allergies reviewed. Attestation: This PAT evaluation 06/12/2020. Airway Exam: Mallampati: II Cervical ROM: FROM TM distance: >4 Cardiovascular Exam: Rate: regular Rhythm: regular Pulmonary Exam: LCTA, bilat Dental Exam: Appears intact Current state: Patient's current state is cooperative. Anesthesia Plan ASA 4 Planned anesthesia: General Team communication plan: oral ET tube Invasive Monitors Planned: Invasive monitors planned: arterial line, central venous catheter, SUZAN and pulmonary artery catheter. Induction: Induction: intravenous. Informed Consent: Anesthesia plan and risks discussed with patient, spouse and daughter. Plan and Consent Comments: Left radial harvest --> right radial kirill placement. Consent and Attending signature: I and/or my designee have discussed the anesthesia plan, benefits, possible alternatives, parental presence at time of induction (if indicated), and clinically relevant risks that may include dental injury, unintentional awareness, and/or other complications. The patient and/or parent/legal guardian understand, and agree to proceed. All questions answered. documented in this encounter Miscellaneous Notes * Post-Perfusion - Frantz Andujar, HAL - 06/12/2020 11:58 AM CDT Medications fentaNYL (mcg) Date/Time Rate/Dose/Volume Action Admin User Audit 06/12/20 0743 250 mcg Given Red Kamara MD 0847 250 mcg Given Red Kamara MD lidocaine (cardiac) syringe 2 % (mg) Date/Time Rate/Dose/Volume Action Admin User Audit 06/12/20 0743 100 mg Given Red Kamara MD succinylcholine (mg) Date/Time Rate/Dose/Volume Action Admin User Audit 06/12/20 0743 100 mg Given Red Kamara MD norepinephrine (LEVOPHED) 8,000 mcg in dextrose 5% 250 mL (32 mcg/mL) infusion (mcg/kg/min) Dosing weight: 96.4 Date/Time Rate/Dose/Volume Action Admin User Audit 06/12/20 1022 0.05 mcg/kg/min - 9.038 mL/hr New Bag Red Kamara MD ceFAZolin (ANCEF) 2,000 mg/20 mL in sterile water (premix) 2,000 mg (mg) Dosing weight: 95.8 Date/Time Rate/Dose/Volume Action Admin User Audit 06/12/20 0820 2,000 mg (over 3 min) Given Red Kamara MD edited nitroglycerin infusion (mcg/min) Date/Time Rate/Dose/Volume Action Admin User Audit 06/12/20 0859 5 mcg/min - 1.5 mL/hr New Bag Red Kamara MD edited 0932 Stopped Red Kamara MD propofol (mg) Date/Time Rate/Dose/Volume Action Admin User Audit 06/12/20 0743 100 mg Given Red Kamara MD propofol (mcg/kg/min) Dosing weight: 96.4 Date/Time Rate/Dose/Volume Action Admin User Audit 06/12/20 0816 30 mcg/kg/min - 17.352 mL/hr New Bag Red Kamara MD phenylephrine (GINA-SYNEPHRINE) 1 mg in sodium chloride 0.9% 10 mL solution (mcg) Date/Time Rate/Dose/Volume Action Admin User Audit 06/12/20 0743 150 mcg New Bag Red Kamara MD rocuronium (mg) Date/Time Rate/Dose/Volume Action Admin User Audit 06/12/20 0755 100 mg Given Red Kamara MD heparin 1,000 unit/ml (Units) Date/Time Rate/Dose/Volume Action Admin User Audit 06/12/20 0923 37,000 Units Given Red Kamara MD 0936 10,000 Units Given Red Kamara MD heparin injection 1,000 unit/mL (Units) Date/Time Rate/Dose/Volume Action Admin User Audit 06/12/20 1045 7,000 Units Given Frantz Andujar CCP 1116 3,000 Units Given Frantz Andujar CCP aminocaproic acid (AMICAR) bolus 10 g (g) Date/Time Rate/Dose/Volume Action Admin User Audit 06/12/20 0935 2.5 g Given Red Kamara MD aminocaproic acid (AMICAR) infusion 15 g/60 mL (g/hr) Date/Time Rate/Dose/Volume Action Admin User Audit 06/12/20 0935 1 g/hr - 4 mL/hr New Bag Red Kamara MD 1157 Stopped Red Kamara MD phenylephrine (GINA-SYNEPHRINE) injection (mcg) Date/Time Rate/Dose/Volume Action Admin User Audit 06/12/20 1017 500 mcg Given Frantz Andujar CCP 1018 700 mcg Given Frantz Andujar CCP 1019 500 mcg Given Frantz Andujar CCP 1024 300 mcg Given Frantz Andujar CCP 1043 500 mcg Given Frantz Andujar, CCP 1048 500 mcg Given Frantz Andujar, CCP 1054 500 mcg Given Frantz Andujar, CCP 1057 500 mcg Given Frantz Andujar CCP Lactated Ringer's (LR) 200 mL with albumin 100 mL, heparin 5 mL, mannitol 25 g solution (mL) Date/Time Rate/Dose/Volume Action Admin User Audit 06/12/20 1017 650 mL - 650 mL New Bag Frantz Andujar CCP Comment: 250ml PRBC sodium bicarbonate injection 1 mEq/mL (mEq) Date/Time Rate/Dose/Volume Action Admin User Audit 06/12/20 1047 25 mEq Given Frantz Andujar CCP 1136 25 mEq Given Frantz Andujar CCP 1147 25 mEq Given Frantz Andujar CCP lidocaine PF (XYLOCAINE) injection 2 % (mg) Date/Time Rate/Dose/Volume Action Admin User Audit 06/12/20 1142 100 mg Given Frantz Andujar CCP protamine (mg) Date/Time Rate/Dose/Volume Action Admin User Audit 06/12/20 1154 500 mg (over 10 min) Given Red Kamara MD sodium chloride 0.9% bolus (mL) Date/Time Rate/Dose/Volume Action Admin User Audit 06/12/20 1115 New Bag Frantz Andujar, CCP 1116 500 mL Anesthesia Volume Adjustment Frantz Andujar CCP 1120 500 mL Stopped Frantz Andujar CCP 1130 500 mL Restarted Frantz Andujar CCP 1134 500 mL Stopped Frantz Andujar CCP PRBC - CROSSMATCHED [id number] (mL) Date/Time Rate/Volume Action Admin User Audit 06/12/20 1017 New Bag Frantz Andujar CCP 1018 250 mL Stopped Frantz Andujar CCP [id number] *-[id number] (mL) Date/Time Rate/Volume Action Admin User Audit 06/12/20 1043 New Bag Frantz Andujar CCP 1044 250 mL Stopped Frantz Andujar CCP Events Date Time Event 06/12/2020 0730 Patient in Room 0730 Anesthesia Start 0730 Start Data Collection 0743 Induction The patient was reevaluated immediately before moderate or deep sedation use and before anesthesia induction. 0745 Intubation 0756 Perfusion Ready 0816 Anesthesia Ready 0837 Incision Start 0838 Kev Now 0844 Start data Collection 1017 CPB ON 1017 Quick Note 18fr. Nieves optiflow aortic cannula 29-37fr.nieves 2 stage venous cannula in rt. Atrial appendage 1019 Aortic Clamp ON 1055 Ultrafiltration On 1106 Ultrafiltration Off 1112 Rewarming Start 1114 Ultrafiltration On Z buff 1137 Ultrafiltration Off 1141 Aortic Clamp OFF 1143 Kev Now 1151 CPB OFF Conduit Cor target 1 Cor target 2 Connected Flow (ml/min) PI svg rpd 80 svg intermediate 75 [place] lad 70 CPB 94min XP 82min Cosigned by Hernan Cordero MD at 07/13/2020 1:35 PM CDT documented in this encounter Plan of Treatment Not on file documented as of this encounter Procedures Procedure Name Priority Date/Time Associated Diagnosis Comments LA AN PROCEDURE PLACEHOLDER Routine 06/12/2020 9:15 AM CDT LA AN PROCEDURE PLACEHOLDER Routine 06/12/2020 9:14 AM CDT LA AN CENTRAL LINE TRIPLE LUMEN Routine 06/12/2020 9:14 AM CDT LA AN PROCEDURE PLACEHOLDER Routine 06/12/2020 9:12 AM CDT PULMONARY ARTERY CATH Routine 06/12/2020 9:12 AM CDT BW AN SHEATH INTRODUCER PERFORMABLE Routine 06/12/2020 9:12 AM CDT LA AN PROCEDURE PLACEHOLDER Routine 06/12/2020 9:12 AM CDT LA AN PROCEDURE PLACEHOLDER Routine 06/12/2020 9:07 AM CDT LA AN ELECTIVE ENDOTRACHEAL AIRWAY Routine 06/12/2020 9:07 AM CDT documented in this encounter Results * LA AN PROCEDURE PLACEHOLDER (06/12/2020 9:15 AM CDT) Anatomical Region Laterality Modality Other Narrative 06/12/2020 9:15 AM CDT Red Kamara MD ? 06/12/2020 ??3:04 PM SUZAN Date/time: Staff: Performed by: Anesthesiologist: [...] with surgeon: yes Images submitted to archive: ??yes Patient location: OR Intubated: yes Bite blocked placed: yes Probe Insertion: easy Complications: no Probe type: adult Modalities: 2D imaging, continuous wave Doppler, pulsed wave Doppler and color Doppler Billing information: Physician requesting echo: Hernan Cordero MD CPT code: SUZAN placement and diagnostic exam, non-congenital (14911) ICD code(s) for medical necessity: R93.1 - [...] inferior: normal 16- Apical septal: normal 17- [place]: normal Valves: Aortic Valve: Annulus: normal Leaflet [...] is normal RV size and systolic function. ??There is normal LV size and systolic function. ??There are no regional wall motion abnormalities. ?? There is trace MR and TR. ??The aortic valve is normal. ??There is no PFO identified on color flow doppler. The left atrial appendage is normal. Postprocedure (follow-up) SUZAN exam: LV: normal systolic function RV: normal systolic function Mitral valve: mild MR Pericardium: normal Left pleural: normal Right pleural: normal Postprocedure (follow-up) SUZAN exam comments: Status post 3 vessel CABG. ??Exam performed without inotropic support. ?? There is normal biventricular systolic function. ??There are no regional wall motion abnormalities. ??There is mild MR. ??No changes with chest closure. Attestation Statement: By signing this report the attending anesthesiologist certifies that he or she has personally reviewed and interpreted the echocardiogram and has reviewed and or edited and agrees with the written comments contained within the report. Red Kamara MD ANESTHESIA ORDERABLES Final Result * LA AN CENTRAL LINE TRIPLE LUMEN, LA AN PROCEDURE PLACEHOLDER (06/12/2020 9:14 AM CDT) Narrative Red Kamara MD - 06/12/2020 9:14 AM CDT Red Kamara MD ? 06/12/2020 ??9:14 AM Central Venous Line Patient location: OR Indication: central venous access Staff: Placed by: Anesthesiologist: Red Kamara MD Procedure prep: Patient position: Trendelenburg. PPE: provider hand hygiene, provider hat/mask, sterile gloves, sterile gown, large sterile drape, full body drape, sterile gel and sterile probe covers. Prep solution: chlorhexadine/alcohol was applied to area. Ultrasound was prepped into field. Central line: Laterality: right Site: internal jugular Catheter type: triple lumen Catheter size: 7 Fr. Catheter length: 16 cm Catheter length at skin: 16 cm Technique: anatomy identified with ultrasound, Seldinger technique, wire threaded easily and wire removed intact Venous verification: ultrasound confirmation Post insertion: all ports aspirated, all ports flushed easily, line sutured in place and occlusive dressing applied Number of attempts: 1 Assessment: Events: patient tolerated procedure well with no complications Red Kamara MD ANESTHESIA ORDERABLES Final Result * BW AN SHEATH INTRODUCER PERFORMABLE, PULMONARY ARTERY CATH, LA AN PROCEDURE PLACEHOLDER (:12 AM CDT) Narrative Red Kamara MD - 06/12/2020 9:12 AM CDT Red Kamara MD ? 06/12/2020 ??9:13 AM Central Venous Line Patient location: OR Indication: central venous access and CVP monitoring Staff: Placed by: Anesthesiologist: Red Kamara MD Procedure prep: Patient position: Trendelenburg. PPE: provider hand hygiene, provider hat/mask, sterile gloves, sterile gown, large sterile drape, full body drape, sterile gel and sterile probe covers. Prep solution: chlorhexadine/alcohol was applied to area. Ultrasound was prepped into field. Central line: Laterality: right Site: internal jugular Catheter type: introducer sheath Catheter size: 9 Fr. Technique: anatomy identified with ultrasound, Seldinger technique, wire threaded easily and wire removed intact Venous verification: ultrasound confirmation Post insertion: all ports aspirated, all ports flushed easily, line sutured in place and occlusive dressing applied Number of attempts: 2 Other sites attempted: Wire did not thread on first stick. ??Threaded easily on 2nd stick. PA catheter placement: PA catheter type: non-oximetric PA catheter size: 7.5 Fr PA catheter laterality: right PA catheter site: internal jugular Placement guided by: pressure tracing changesNo Assessment: Events: patient tolerated procedure well with no complications Red Kamara MD ANESTHESIA ORDERABLES Final Result * LA AN PROCEDURE PLACEHOLDER (06/12/2020 9:12 AM CDT) Red Velasco MD - 06/12/2020 9:12 AM CDT Red Kamara MD ? 06/12/2020 ??9:12 AM Arterial Line Indication: continuous blood pressure monitoring and blood sampling needed Staff: Supervising provider: Red Kamara MD Placed by: Anesthesiologist: Abhilash Allen CRNA Procedure prep: Prep solution: chlorhexadine/alcohol Prep: provider hat/mask Arterial line: Catheter size: 20 gauge Catheter length: 1 and 3/8 inch Catheter type: wire-guided catheter Seldinger technique: yes Laterality: right Site: radial artery Line secured: Tegaderm Results: good waveform and good blood return Number of attempts: 1 Assessment: Events: patient tolerated procedure well with no complications us Red Kamara MD ANESTHESIA ORDERABLES Final Result * LA AN ELECTIVE ENDOTRACHEAL AIRWAY, LA AN PROCEDURE PLACEHOLDER (06/12/2020 9:07 AM CDT) Red Velasco MD - 06/12/2020 9:07 AM CDT Red Kamara MD ? 06/12/2020 ??9:11 AM Airway Patient location: OR Urgency: elective Indications for airway management: anesthesia Difficult airway: no Staff: Placed by: Anesthesiologist: Red Kamara MD Emergent airway documentation: Risks and benefits discussed: yes Consent obtained: yes Consent given by: patient Airway prep: Preoxygenated: yes Patient position: sniffing Mask difficulty assessment: 0 - not attempted Sedation level during airway: GA Final airway details: Final airway type: endotracheal airway Tube type: ETT ETT size: 8.0 mm Cuffed: yes Technique used for successful ETT placement: video laryngoscopy Devices/Methods used in placement: intubating stylet Insertion site: oral Blade type: Omar Video blade type: Helms Blade size: 4 Cormack-Lehane (video): grade I - full view of glottis Cuff inflated with: air ETT to gums: 23 cm Placement verified by: auscultation and CO2 detection Airway secured with: silk tape Number of attempts: 1 us Red Kamara MD ANESTHESIA ORDERABLES Final Result documented in this encounter Visit Diagnoses Not on filedocumented in this encounter Administered Medications Inactive Administered Medications - up to 3 most recent administrations Medication Order MAR Action Action Date Dose Rate Site aminocaproic (AMICAR) bolus from bag intravenous, As needed, Starting on Fri06/12/20 at 0935, Anesthesia Intra-op Given 06/12/2020 9:35 AM CDT 2.5 g aminocaproic acid (AMICAR) infusion intravenous, Continuous PRN, Starting on Fri06/12/20 at 0935, Anesthesia Intra-op New Bag 06/12/2020 9:35 AM CDT 1 g/hr 4 mL/ hr calcium chloride IV syringe intravenous, As needed, Starting on Fri06/12/20 at 1247, Anesthesia Intra-op Given 06/12/2020 12:47 PM CDT 1 g ceFAZolin (ANCEF) 2,000 mg/20 mL in sterile water (premix) 2,000 mg 2,000 mg, intravenous, at 400 mL/hr, Administer over 3 Minutes, Once, On Fri06/12/20 at 0730, For 1 dose, Pre-Op, Administer within 60 minutes of incision., Indications: Prophylaxis, Surgical, .NET ARCHITECT TO ORIndications:Prophylaxis, Surgical,.NET ARCHITECT TO OR Given 06/12/2020 8:20 AM CDT 2,000 mg dextrose (concentrated solution) 50 % CONCENTRATED solution intravenous, Administer over 5 Minutes, As needed, Starting on Fri06/12/20 at 1233, Anesthesia Intra-op Given 06/12/2020 12:33 PM CDT 25 g fentaNYL (SUBLIMAZE) preservative free injection intravenous, As needed, Starting on Fri06/12/20 at 0847, Anesthesia Intra-op Given 06/12/2020 12:33 PM CDT 500 mcg Given 06/12/2020 8:47 AM CDT 250 mcg Given 06/12/2020 7:43 AM CDT 250 mcg glycopyrrolate (ROBINUL) injection intravenous, Administer over 1 Minutes, As needed, Starting on Fri06/12/20 at 1251, Anesthesia Intra-op Given 06/12/2020 12:51 PM CDT 600 mc g heparin 1,000 unit/mL injection intravenous, As needed, Starting on Fri06/12/20 at 0923, Anesthesia Intra-op Given 06/12/2020 9:36 AM CDT 10,000 Units Given 06/12/2020 9:23 AM CDT 37,000 Units heparin 1,000 unit/mL injection intravenous, As needed, Starting on Fri06/12/20 at 1045, Anesthesia Intra-op Given 06/12/2020 11:16 AM CDT 3,000 Units Given 06/12/2020 10:45 AM CDT 7,000 Units insulin regular (HumuLIN R, NovoLIN R) injection intravenous, As needed, Starting on Fri06/12/20 at 1233, Anesthesia Intra-op Given 06/12/2020 12:47 PM CDT 5 Unit s Given 06/12/2020 12:33 PM CDT 10 Units Lactated Ringer's (LR) 16 mL with adenosine (ADENOCARD) 14 mL, lidocaine (cardiac) (XYLOCAINE) 5 mL, magnesium sulfate 4 g solution intravenous, Continuous PRN, Starting on Fri06/12/20 at 1206, Anesthesia Intra-op New Bag 06/12/2020 12:06 PM CDT 45 mL Lactated Ringer's (LR) 200 mL with albumin 100 mL, heparin 5 mL, mannitol 25 g solution intravenous, Continuous PRN, Starting on Fri06/12/20 at 1017, Anesthesia Intra-op New Bag 06/12/2020 10:17 AM CDT 650 mL lidocaine (cardiac) (XYLOCAINE) preservative free injection intravenous, As needed, Starting on Fri06/12/20 at 0743, Anesthesia Intra-op, Indications: Ventricular ArrhythmiasIndications:Ventr icular Arrhythmias Given 06/12/2020 7:43 AM CDT 100 mg lidocaine (XYLOCAINE) 20 mg/mL (2 %) preservative free injection intravenous, As needed, Starting on Fri06/12/20 at 1142, Anesthesia Intra-op Given 06/12/2020 11:42 AM CDT 100 mg neostigmine injection intravenous, Administer over 3 Minutes, As needed, Starting on Fri06/12/20 at 1251, Anesthesia Intra-op Given 06/12/2020 12:51 PM CDT 3 mg nitroglycerin in dextrose 5% 50 mg/250 mL (200 mcg/mL) infusion (premix) intravenous, As needed, Starting on Fri06/12/20 at 0859, Anesthesia Intra-op New Bag 06/12/2020 8:59 AM CDT 5 mcg/min 1.5 mL/hr norepinephrine (LEVOPHED) 8,000 mcg in dextrose 5% 250 mL (32 mcg/mL) infusion intravenous, Continuous PRN, Starting on Fri06/12/20 at 1022, Anesthesia Intra-op New Bag 06/12/2020 10:22 AM CDT 0.05 mcg/kg/min 9.038 mL/hr phenylephrine (GINA-SYNEPHRINE) 1 mg in sodium chloride 0.9% 10 mL solution intravenous, Continuous PRN, Starting on Fri06/12/20 at 0743, Anesthesia Intra-op New Bag 06/12/2020 7:43 AM CDT 150 mcg phenylephrine (GINA-SYNEPHRINE) injection intravenous, As needed, Starting on Fri06/12/20 at 1017, Anesthesia Intra-op Given 06/12/2020 11:45 AM CDT 300 mcg Given 06/12/2020 11:42 AM CDT 800 mcg Given 06/12/2020 11:41 AM CDT 400 mcg potassium chloride injection intravenous, As needed, Starting on Fri06/12/20 at 1206, Anesthesia Intra-op Given 06/12/2020 12:06 PM CDT 18 mEq propofoL (DIPRIVAN) IV intravenous, As needed, Starting on Fri06/12/20 at 0743, Anesthesia Intra-op Given 06/12/2020 7:43 AM CDT 100 mg propofoL (DIPRIVAN) IV intravenous, Continuous PRN, Starting on Fri06/12/20 at 0816, Anesthesia Intra-op New Bag 06/12/2020 8:16 AM CDT 30 mcg/kg/min 17.352 mL/hr protamine injection intravenous, As needed, Starting on Fri06/12/20 at 1154, Anesthesia Intra-op, Indications: Heparin ToxicityIndications:Heparin Toxicity Given 06/12/2020 11:54 AM CDT 500 mg rocuronium (ZEMURON) injection intravenous, As needed, Starting on Fri06/12/20 at 0755, Anesthesia Intra-op Given 06/12/2020 7:55 AM CDT 100 mg sodium bicarbonate 8.4 % (1 mEq/mL) injection intravenous, Administer over 5 Minutes, As needed, Starting on Fri06/12/20 at 1047, Anesthesia Intra-op Given 06/12/2020 11:47 AM CDT 25 mEq Given 06/12/2020 11:36 AM CDT 25 mEq Given 06/12/2020 10:47 AM CDT 25 mEq sodium chloride 0.9% bolus intravenous, Continuous PRN, Starting on Fri06/12/20 at 1115, Anesthesia Intra-op Restarted 06/12/2020 11:30 AM CDT New Bag 06/12/2020 11:15 AM CDT succinylcholine (ANECTINE) injection intravenous, As needed, Starting on Fri06/12/20 at 0743, Anesthesia Intra-op Given 06/12/2020 7:43 AM CDT 100 mg Transfuse RBC Timed New Bag 06/12/2020 10:17 AM CDT Transfuse RBC Timed New Bag 06/12/2020 10:43 AM CDT documented in this encounter Orders Medications Ordered That Vignesh ht Not Have Been Administered Count Last Ordered Date First Ordered Date lidocaine (XYLOCAINE) 20 mg/ mL (2 %) preservative free injection 1 06/12/2020 documented in this encounter Care Teams Grounds Manager Relationship Specialty Start Date End Date Scott Oneill MD PCP - General Internal Medicine 04/27/20 documented as of this encounter
--- OUTSIDE RECORDS SUMMARY | 2024-04-04 01:46 | XMS_ITS | Encounter Summary ---
Author Organization [facility] Address [address] [place] [address] Care Team Providers Care Wardrobe Consultant Name Role Phone Scott Oneill MD Primary Care Provider [phone] Reason for Visit * Cardiology (Routine) - Closed Specialty Diagnoses / Procedures Referred By Contac t Referred To Contact Diagnoses Angina pectoris syndrome (CMS/HCC) (HCC) Procedures Transthoracic Echo Complete W Doppler/CF Phan Austin MD [address] [address] Phone: tel: fax: [facility] Referral ID Status Reason Start Date Expiration Date Visits Re quested Visits Authorized [id number] Closed 05/04/2020 06/03/2021 1 1 Encounter Details Date Type Department Care Team (Latest Contact Info) Description 05/18/2020 1:00 PM CHLORINE CELLS OPERATOR Ancillary Procedure [facility] Medical [facility] Cardiology [address] [facility] [address] [place] [address] Angina pectoris syndrome (CMS/HCC) Social History Tobacco Use Types Packs/Day Years Used Date Smoking Tobacco: Former Smokeless Tobacco: Never Alcohol Use Standard Drinks/Week Comments Yes 0 (1 standard drink = 0.6 oz pur e alcohol) 6 beers a year Sex and Gender Information Value Date Recorded Sex Assigned at Not on file Legal Sex Male 1:23 AM CHLORINE CELLS OPERATOR Gender Identity Male 12/24/2023 11:25 AM CDT Sexual Orientation Straight 12/24/2023 11 :25 AM CDT documented as of this encounter Last Filed Vital Signs Vital Sign Reading Time Taken Comments Blood Pressure - - Pulse - - Temperature 36.5 ??C (97.7 ??F) 05/18/2020 1:01 PM CS T Respiratory Rate - - Oxygen Saturation - - Inhaled Oxygen Concentration - - Weight - - Height - - Body Mass Index - - documented in this encounter Plan of Treatment Not on file documented as of this encounter Procedures Procedure Name Priority Date/Time Associated Diagnosis Comments TRANSTHORACIC ECHO (TTE) COMPLETE W DOPPLER/CF WO CONTRAST Routine 05/18/2020 1:40 PM CHLORINE CELLS OPERATOR Angina pectoris syndrome (CMS/HCC) documented in this encounter Results * TRANSTHORACIC ECHO (TTE) COMPLETE W DOPPLER/CF WO CONTRAST (05/18/2020 1:40 PM CHLORINE CELLS OPERATOR) Anatomical Region Laterality Modality Ultrasound 05/18/2020 12:2 3 PM CHLORINE CELLS OPERATOR Narrative 05/18/2020 2:54 PM CHLORINE CELLS OPERATOR [facility] Cardiology [address] [facility] [address], [place] [address] [address] [address] P:[phone] P:[phone] Echocardiographic Report Patient Name: BRITTON NIELSEN : 1955 Study Date: 05/18/2020 12:23:13 PM Gender: M Tech: Location: [place] Ref.Provider: ARLINE Height(Cm): 165 BSA: 2.02 Weight(Kg): 95.26 Heart Rate: 61 BP: 150/66 Quality: Good Order Provider: PHAN AUSTIN Procedures: Echocardiographic Report: Transthoracic echocardiogram with complete 2D, M-Mode, and color Doppler examination. Indications: Angina. Measurements: 2D/M Mode ?Doppler ? Measurement ?Value ?Normal Range ? Measurement ?Value ?Normal Range ? EF Mod ? 79 ?ALLISON ?2.17 ? [ 2.00 - 4.00 ] cm2 ? EF MM ?79 ? [ 55 - 70 ] % ?AV Mean PG ? 6 ?mmHg ? LVIDd MM ? 4.42 ? [ 3.90 - 5.30 ] cm ? AV Peak Andry ?1.57 ? m/s ? LVIDs MM ? 2.33 ? [ 2.30 - 3.90 ] cm ? AV Peak PG ? 10 ? mmHg ? LVPWd MM ? 1.33 ? [ 0.60 - 1.00 ] cm ? AV VTI ? 0.40 ? cm ? IVSd MM ?1.33 ? [ 0.60 - 0.90 ] cm ? LVOT Diam ?2.03 ? [ 1.70 - 2.10 ] cm ? LA Dimension MM ?4.50 ? [ 2.70 - 3.80 ] cm ? LVOT Peak Andry ?1.05 ? [ 0.70 - 1.10 ] m/s ? AoR Diam MM ?3.75 ? [ 2.60 - 3.70 ] cm ? LVOT VTI ? 0.25 ? cm ? LA Volume Index ?30.00 ?[ 16.00 - 28.00 ] cc/m2 ?MV E Peak Andry ?0.72 ? [ 0.60 - 1.30 ] m/s ? ACS MM ? 2.00 ? cm ? MV A Peak Andry ?0.99 ? [ 0.40 - 0.80 ] m/s ? MV Decel Time ?239 ?[ 150 - 200 ] msec ? PV Peak Andry ?1.31 ? [ 0.40 - 0.80 ] m/s ? TR Peak Andry ?2.77 ? [ 0.40 - 0.80 ] m/s ? TR Peak PG ? 31 ? mmHg ? RVSP ? 38.00 ?mmHg ? E' ? 0.08 ? E/E' ? 9 ? Findings: Interpretation Site: Exam was interpreted at [facility]. Left Ventricle: Normal left ventricular systolic function. No focal wall motion abnormalities. Normal left ventricular size. Mild concentric left ventricular hypertrophy. Impaired diastolic relaxation Grade I. Ejection fraction is measured at 78 %. Right Ventricle: Normal right ventricular size. Normal right ventricular systolic function. Left Atrium: There is mild enlargement of left atrium. Right Atrium: The right atrium is normal in size. Atrial Septum: Normal atrial septum. Atrial septum color Doppler interrogation consistent with a possible PFO. Consider bubble study. Mitral Valve: Mitral valve leaflets appear mildly thickened. Mild mitral annular calcification. Mild mitral valve regurgitation. Aortic Valve: Normal appearance of the aortic valve. No evidence of hemodynamically significant aortic stenosis by Doppler. Aortic cusps appear mildly calcified. Probable trileaflet aortic valve, although not all leaflets are visualized. Tricuspid Valve: Normal appearance of the tricuspid valve. Mild pulmonary hypertension based on right ventricular systolic pressure. Estimated peak RVSP is 39 mmHg. Trivial regurgitation in the tricuspid valve. Pulmonic Valve: Pulmonic valve not well visualized. Trivial regurgitation in the pulmonic valve. Pericardium: Normal pericardium with no significant pericardial effusion. Aorta: Upper limits of normal size at 3.8cm. IVC: Normal size and normal respiratory collapse consistent with normal right atrial pressure (<5 mmHg). Conclusions: Normal left ventricular systolic function. No focal wall motion abnormalities. Normal left ventricular size. Mild concentric left ventricular hypertrophy. Impaired diastolic relaxation Grade I. Ejection fraction is measured at 78 %. There is mild enlargement of left atrium. Normal atrial septum. Atrial septum color Doppler interrogation consistent with a possible PFO. Consider bubble study. Mitral valve leaflets appear mildly thickened. Mild mitral annular calcification. Mild mitral valve regurgitation. Normal appearance of the tricuspid valve. Mild pulmonary hypertension based on right ventricular systolic pressure. Estimated peak RVSP is 39 mmHg. Trivial regurgitation in the tricuspid valve. Normal sinus rhythm. Electronically Signed By: Sherice Causey MD 2020-05-18 14:54:13 CHLORINE CELLS OPERATOR Procedure Note Vito Causey MD - 05/18/2020 [facility] Cardiology [address] [facility] [address] [address] [address], [place] [address] P:[phone] P:[phone] Echocardiographic Report Patient Name: BRITTON NIELSENPatient ID: [id number] : [id number] Date: 05/18/2020 12:23:13 PM Gender: MAccession #: [id number] Tech: GMLocation: [place] Ref.Provider: Carol(Cm): 165 BSA: 2.02Weight(Kg): 95.26 Heart Rate: 61BP: 150/66 Quality: GoodOrder Provider: PHAN AUSTIN Procedures: Echocardiographic Report: Transthoracic echocardiogram with complete 2D, M-Mode, and color Dopplerexamination. Indications: Angina. Measurements: 2D/M Mode Doppler Measurement Value Normal Range MeasurementValue Normal Range EF Mod 79 AVA2.17 [ 2.00 - 4.00 ] cm2 EF MM 79 [ 55 - 70 ] % AV Mean PG 6mmHg LVIDd MM 4.42 [ 3.90 - 5.30 ] cm AV Peak Vel1.57 m/s LVIDs MM 2.33 [ 2.30 - 3.90 ] cm AV Peak PG 10mmHg LVPWd MM 1.33 [ 0.60 - 1.00 ] cm AV VTI0.40 cm IVSd MM 1.33 [ 0.60 - 0.90 ] cm LVOT Diam2.03 [ 1.70 - 2.10 ] cm LA Dimension MM 4.50 [ 2.70 - 3.80 ] cm LVOT Peak Vel1.05 [ 0.70 - 1.10 ] m/s AoR Diam MM 3.75 [ 2.60 - 3.70 ] cm LVOT VTI0.25 cm LA Volume Index 30.00 [ 16.00 - 28.00 ] cc/m2 MV E Peak Vel0.72 [ 0.60 - 1.30 ] m/s ACS MM 2.00 cm MV A Peak Vel0.99 [ 0.40 - 0.80 ] m/s MV Decel Eqwe188 [ 150 - 200 ] msec PV Peak Vel1.31 [ 0.40 - 0.80 ] m/s TR Peak Vel2.77 [ 0.40 - 0.80 ] m/s TR Peak PG 31mmHg RVSP38.00 mmHg E'0.08 E/E' 9 Findings: Interpretation Site: Exam was interpreted at [facility]. Left Ventricle: Normal left ventricular systolic function. No focal wall motionabnormalities. Normal left ventricular size. Mild concentric left ventricular hypertrophy.Impaired diastolic relaxation Grade I. Ejection fraction is measured at 78 %. Right Ventricle: Normal right ventricular size. Normal right ventricular systolicfunction. Left Atrium: There is mild enlargement of left atrium. Right Atrium: The right atrium is normal in size. Atrial Septum: Normal atrial septum. Atrial septum color Doppler interrogation consistentwith a possible PFO. Consider bubble study. Mitral Valve: Mitral valve leaflets appear mildly thickened. Mild mitral annularcalcification. Mild mitral valve regurgitation. Aortic Valve: Normal appearance of the aortic valve. No evidence of hemodynamicallysignificant aortic stenosis by Doppler. Aortic cusps appear mildly calcified. Probabletrileaflet aortic valve, although not all leaflets are visualized. Tricuspid Valve: Normal appearance of the tricuspid valve. Mild pulmonary hypertensionbased on right ventricular systolic pressure. Estimated peak RVSP is 39 mmHg. Trivialregurgitation in the tricuspid valve. Pulmonic Valve: Pulmonic valve not well visualized. Trivial regurgitation in the pulmonicvalve. Pericardium: Normal pericardium with no significant pericardial effusion. Aorta: Upper limits of normal size at 3.8cm. IVC: Normal size and normal respiratory collapse consistent with normal rightatrial pressure (<5 mmHg). Conclusions: Normal left ventricular systolic function. No focal wall motionabnormalities. Normal left ventricular size. Mild concentric left ventricular hypertrophy.Impaired diastolic relaxation Grade I. Ejection fraction is measured at 78 %. There is mild enlargement of left atrium. Normal atrial septum. Atrial septum color Doppler interrogation consistentwith a possible PFO. Consider bubble study. Mitral valve leaflets appear mildly thickened. Mild mitral annularcalcification. Mild mitral valve regurgitation. Normal appearance of the tricuspid valve. Mild pulmonary hypertensionbased on right ventricular systolic pressure. Estimated peak RVSP is 39 mmHg. Trivialregurgitation in the tricuspid valve. Normal sinus rhythm. Electronically Signed By: Sherice Causey MD 2020-05-18 14:54:13 CHLORINE CELLS OPERATOR Phan Austin MD CV ECHO PROCEDURES F inal Result documented in this encounter Visit Diagnoses Diagnosis Angina pectoris syndrome (CMS/HCC) (HCC) Other and unspecified angina pectoris documented in this encounter Care Teams Wardrobe Consultant Relationship Specialty Start Date End Date Scott Oneill MD PCP - General Internal Medicine 04/27/20 documented as of this encounter
--- OUTSIDE RECORDS SUMMARY | 2024-04-04 01:46 | XMS_ITS | Encounter Summary ---
Author Organization [facility] Address [address] [place] [address] Care Team Providers Care Inspectors And Regulatory Officers Name Role Phone Scott Oneill MD Primary Care Provider [phone] Encounter Details Date Type Department Care Team (Late st Contact Info) Description 05/19/2020 Telephone [facility] Cardiology [address] [facility] [address] [place] [address] Kathrin Austin MD [address] [place] [address] Social History Tobacco Use Types Packs/Day Years Used Date Smoking Tobacco: Former Smokeless Tobacco: Never Alcohol Use Standard Drinks/Week Comments Yes 0 (1 standard drink = 0.6 oz pur e alcohol) 6 beers a year Sex and Gender Information Value Date Recorded Sex Assigned at Not on file Legal Sex Male 1:23 AM STORAGE MANAGER Gender Identity Male 12/24/2023 11:25 AM CDT Sexual Orientation Straight 12/24/2023 11 :25 AM CDT documented as of this encounter Miscellaneous Notes * Telephone Encounter - Kathrin Austin MD - 05/19/2020 8:55 AM STORAGE MANAGER Okay thank you. Will see with the EGD shows. AGE MANAGER * Telephone Encounter - Lois Hassan RN - 05/19/2020 8:32 AM CST Pt was seen by the GI PARTS WASHER and has a scope scheduled for 06/20. That is the soonest they had available. I have requested his OV note to be faxed. Once avail, I will scan in [employer]. ----- Message from Kathrin Austin MD sent at 05/19/2020 8:21 AM STORAGE MANAGER ----- Regarding: GI evaluation I was planning to do cardiac catheterization in this patient but wanted GI clearance. I am not sureif this patient was evaluated by GI. Please call the patient and ask him. Nephrology reached out to me and informed me that I can proceed with a cardiac catheterization withminimizing dye usage. AGE MANAGER AGE MANAGER documented in this encounter Plan of Treatment Not on file documented as of this encounter Visit Diagnoses Not on filedocumented in this encounter Care Teams Inspectors And Regulatory Officers Relationship Specialty Start Date End Date Scott Oneill MD PCP - General Internal Medicine 04/27/20 documented as of this encounter
--- OUTSIDE RECORDS SUMMARY | 2024-04-04 01:46 | XMS_ITS | Encounter Summary ---
Author Organization [facility] Address [address] [place] [address] Care Team Providers Care Benefits Counselor Name Role Phone Scott Oneill MD Primary Care Provider [phone] Encounter Details Date Type Department Care Team (Late st Contact Info) Description 04/27/2020 Orders Only [facility] Cardiology [address] [facility] [address] [place] [phone] ProviderRivera MD [address] [place] [id number] Social History Tobacco Use Types Packs/Day Years Used Date Smoking Tobacco: Never Assessed Sex and Gender Information Value Date Recorded Sex Assigned at Not on file Legal Sex Male 1:23 AM FURNITURE CLEANER Gender Identity Male 12/24/2023 11:25 AM CDT Sexual Orientation Straight 12/24/2023 11 :25 AM CDT documented as of this encounter Plan of Treatment Not on file documented as of this encounter Procedures Procedure Name Priority Date/Time Associated Diagnosis Comments CARDIOLOGY DOCUMENT SCAN Routine 04/27/2020 CARDIOLOGY DOCUMENT SCAN Routine 04/27/2020 documented in this encounter Results * SCAN - CARDIOLOGY (04/27/2020) Anatomical Region Laterality Modality Other Historical Provider CV CARDIAC SERVICES PROCE DURES Final Result * SCAN - CARDIOLOGY (04/27/2020) Anatomical Region Laterality Modality Other Historical Provider CV CARDIAC SERVICES PROCE DURES Final Result documented in this encounter Visit Diagnoses Not on filedocumented in this encounter Care Teams Benefits Counselor Relationship Specialty Start Date End Date Scott Oneill MD PCP - General Internal Medicine 04/27/20 documented as of this encounter
--- OUTSIDE RECORDS SUMMARY | 2024-04-04 01:46 | XMS_ITS | Encounter Summary ---
Author Organization [facility] Address [address] [facility] [address] [place] [address] Care Team Providers Care Cash Specialist Name Role Phone Scott Oneill MD Primary Care Provider [phone] Encounter Details Date Type Department Care Team (Late st Contact Info) Description 06/07/2020 Telephone [facility] Medical [facility] Cardiology [address] [address] Kathrin Austin MD [address] [place] [address] [place] [address] Social History Tobacco Use Types Packs/Day [...] on file Legal Sex Male 1:23 AM CO FOUNDER AND CHIEF STRATEGY OFFICER Gender Identity Male 12/24/2023 11:25 AM CDT Sexual Orientation Straight 12/24/2023 11 :25 AM CDT documented as of this encounter Miscellaneous Notes * Telephone Encounter - Deneen Yañez RN - 06/07/2020 10:35 AM CO FOUNDER AND CHIEF STRATEGY OFFICER LM on pt VM giving him directions on where to go tomorrow for his procedure. Advised him to callback with any questions or concerns. FOUNDER AND CHIEF STRATEGY OFFICER * Telephone Encounter - Bernice Alanis - 06/07/2020 9:57 AM CO FOUNDER AND CHIEF STRATEGY OFFICER Pt is scheduled to have cardiac [facility] [phone] FOUNDER AND CHIEF STRATEGY OFFICER documented in this encounter Plan of Treatment Not on file documented as of this encounter Visit Diagnoses Not on filedocumented in this encounter Care Teams Cash Specialist Relationship Specialty Start Date End Date Scott Oneill MD PCP - General Internal Medicine 04/27/20 documented as of this encounter
--- OUTSIDE RECORDS SUMMARY | 2024-04-04 01:46 | XMS_ITS | Encounter Summary ---
Author Organization [facility] Address [address] [place] [address] Care Team Providers Care Rehabilitation Coordinator Name Role Phone Scott Oneill MD Primary Care Provider [phone] Encounter Details Date Type Department Care Team (Late st Contact Info) Description 06/08/2020 Orders Only [facility] Cardiology [address] [place] [address] Kathrin Austin MD [address] [place] [address] Social History Tobacco Use Types Packs/Day [...] on file Legal Sex Male 1:23 AM STRAIGHTENER AND ALIGNER Gender Identity Male 12/24/2023 11:25 AM CDT Sexual Orientation Straight 12/24/2023 11 :25 AM CDT documented as of this encounter Plan of Treatment Not on file documented as of this encounter Procedures Procedure Name Priority Date/Time Associated Diagnosis Comments CARDIOLOGY DOCUMENT SCAN Routine 06/08/2020 documented in this encounter Results * SCAN - CARDIOLOGY (06/08/2020) Anatomical Region Laterality Modality Other us Kathrin Austin MD CV CARDIAC SERVICES PROCEDURES Final Result documented in this encounter Visit Diagnoses Not on filedocumented in this encounter Care Teams Rehabilitation Coordinator Relationship Specialty Start Date End Date Scott Oneill MD PCP - General Internal Medicine 04/27/20 documented as of this encounter
--- OUTSIDE RECORDS SUMMARY | 2024-04-04 01:46 | XMS_ITS | Encounter Summary ---
Author Organization [facility] Address [address] [facility] [address] [place] [address] Care Team Providers Care Camera Supervisor Name Role Phone Scott Oneill MD Primary Care Provider [phone] Encounter Details Date Type Department Care Team (Late st Contact Info) Description 05/19/2020 Orders Only [facility] Cardiology [address] [facility] [address] [place] [address] Provider, MD Rivera [address] [place] [address] Social History Tobacco Use Types Packs/Day Years Used Date Smoking Tobacco: Former Smokeless Tobacco: Never Alcohol Use Standard Drinks/Week Comments Yes 0 (1 standard drink = 0.6 oz pur e alcohol) 6 beers a year Sex and Gender Information Value Date Recorded Sex Assigned at Not on file Legal Sex Male 1:23 AM ENGINE MECHANIC Gender Identity Male 12/24/2023 11:25 AM CDT Sexual Orientation Straight 12/24/2023 11 :25 AM CDT documented as of this encounter Plan of Treatment Not on file documented as of this encounter Procedures Procedure Name Priority Date/Time Associated Diagnosis Comments LIPID PANEL Routine 01/03/2020 documented in this encounter Results * Lipid panel (01/03/2020) SCRIBED Cholesterol, Total 135 0 - 200 EXTERNAL LAB SCRIBED HDL 30 0 - 100 EXTERNAL LAB SCRIBED LDL 83 20 - 100 EXTERNAL LAB SCRIBED Triglycerides 147 0 - 200 EXTERNAL LAB Blood specimen (specimen) us Historical Provider LAB BLOOD ORDERABLES Edit ed Result - Final EXTERNAL LAB documented in this encounter Visit Diagnoses Not on filedocumented in this encounter Care Teams Camera Supervisor Relationship Specialty Start Date End Date Scott Oneill MD PCP - General Internal Medicine 04/27/20 documented as of this encounter
--- OUTSIDE RECORDS SUMMARY | 2024-04-04 01:46 | XMS_ITS | Encounter Summary ---
Author Organization [facility] Address [address] [facility] [address] [place] [address] Care Team Providers Care Wired Music Operator Name Role Phone Scott Oneill MD Primary Care Provider [phone] Encounter Details Date Type Department Care Team (Late st Contact Info) Description 05/04/2020 Telephone [facility] Cardiology [address] [facility] [address] [place] [address] Kathrin Austin MD [address] [place] [address] Social History Tobacco Use Types Packs/Day Years Used Date Smoking Tobacco: Former Smokeless Tobacco: Never Alcohol Use Standard Drinks/Week Comments Yes 0 (1 standard drink = 0.6 oz pur e alcohol) 6 beers a year Sex and Gender Information Value Date Recorded Sex Assigned at Not on file Legal Sex Male 1:23 AM COMPUTER GRAPHIC DESIGNER Gender Identity Male 12/24/2023 11:25 AM CDT Sexual Orientation Straight 12/24/2023 11 :25 AM CDT documented as of this encounter Miscellaneous Notes * Telephone Encounter - Lois Hassan RN - 05/04/2020 11:05 AM CST Per JF- call placed to Dr Barnard and paper faxed asking if theere are any contraindications to LHCfor this pt due to his CKD at this time. Per JF- referral placed to GI for anemia/ GI bld hx. Referral faxed. Scanned in [employer] UTER GRAPHIC DESIGNER documented in this encounter Plan of Treatment Not on file documented as of this encounter Visit Diagnoses Not on filedocumented in this encounter Care Teams Wired Music Operator Relationship Specialty Start Date End Date Scott Oneill MD PCP - General Internal Medicine 04/27/20 documented as of this encounter
--- OUTSIDE RECORDS SUMMARY | 2024-04-04 01:46 | XMS_ITS | Encounter Summary ---
Author Organization [facility] Address [address] [place] [address] Care Team Providers Care Blankbook Forwarder Name Role Phone Scott Oneill MD Primary Care Provider [phone] Reason for Referral * Cardiology (Routine) - Closed Specialty Diagnoses / Procedures Referred By Rocky t Referred To Contact Diagnoses Angina pectoris syndrome (CMS/HCC) (HCC) Procedures Transthoracic Echo Complete W Doppler/CF Phan Austin MD [address] [place] [address] Phone: tel: fax: [facility] Referral ID Status Reason Start Date Expiration Date Visits Re quested Visits Authorized [id number] Closed 05/04/2020 06/03/2021 1 1 S PROJECT ENGINEER Reason for Visit * Reason Comments New Patient Chest Pain * Consultation (Routine) - Closed Specialty Diagnoses / Procedures Referred By Contac t Referred To Contact Cardiology Diagnoses Chest pain, unspecified type Scott Oneill MD Phone: tel: fax: [facility] Cardiology [address] [place] [address] Phone: tel: fax: Referral ID Status Reason Start Date Expiration Date V isits Requested Visits Authorized [id number] Closed Specialty Services Required 04/27/2020 05/27/2021 1 1 Encounter Details Date Type Department Care Team (Latest Contact Info) Description 05/04/2020 8:30 AM SALES PROJECT ENGINEER Office Visit [facility] Cardiology [address] [place] [address] Phan Austin MD [address] [facility] [address], [place] [address] Angina pectoris syndrome (CMS/HCC) (Primary Dx); Chest pain, unspecified type; Stage 3b chronic kidney disease; Family history of early CAD; Gastrointestinal hemorrhage associated with peptic ulcer; Chronic deep vein thrombosis (DVT) of proximal vein of lower extremity, unspecified laterality (CMS/HCC); Mixed hyperlipidemia Social History Tobacco Use Types Packs/Day Years Used Date Smoking Tobacco: Former Smokeless Tobacco: Never Alcohol Use Standard Drinks/Week Comments Yes 0 (1 standard drink = 0.6 oz pur e alcohol) 6 beers a year Sex and Gender Information Value Date Recorded Sex Assigned at Not on file Legal Sex Male 1:23 AM SALES PROJECT ENGINEER Gender Identity Male 12/24/2023 11:25 AM CDT Sexual Orientation Straight 12/24/2023 11 :25 AM CDT documented as of this encounter Last Filed Vital Signs Vital Sign Reading Time Taken Comments Blood Pressure 136/68 05/04/2020 8:44 AM SALES PROJECT ENGINEER Pulse 58 05/04/2020 8:44 AM SALES PROJECT ENGINEER Temperature - - Respiratory Rate - - Oxygen Saturation 97% 05/04/2020 8:44 AM SALES PROJECT ENGINEER Inhaled Oxygen Concentration - - Weight 95.6 kg (210 lb 12.8 oz) 05/04/2020 8:44 AM SALES PROJECT ENGINEER Height 165.1 cm (5' 5 ) 05/04/2020 8:44 AM SALES PROJECT ENGINEER Body Mass Index 35.08 05/04/2020 8:44 AM SALES PROJECT ENGINEER documented in this encounter Progress Notes * Phan Austin MD - 05/04/2020 8:30 AM CST [facility] DATE OF VISIT: 05/04/2020 CHIEF COMPLAINT Chief Complaint Patient presents with ??? New Patient ??? Chest Pain JOSE Nielsen is a 65 y.o. male with complicated past medical history including glomerular nephritis, with GFR 30, long history of tobacco use and quit 8 years ago, obesity, DVT on Eliquis 2017, hypertension, hyperlipidemia, history of significant GI bleeding 2018 and went to [facility] and underwent Embolization of the [...] ago. He underwent Lexiscan stress test at [facility] that was normal with no perfusion defect. And ejection fraction 62%. This discomfort associated with some shortness of breath but denies lower limb edema, dizziness, syncope, palpitations. He has 7 brothers and all of them had stents and heart attacks. His dad at age 63 and he had also coronary artery disease. MEDICAL HISTORY Past Medical History: Diagnosis Date [...] allergies and hives. PHYSICAL EXAM Vitals BP 136/68 (BP Location: Right arm, Patient Position: Sitting) Pulse 58 Ht 165.1 cm (5' 5 ) Wt 95.6 kg (210 lb 12.8 oz) SpO2 97% BMI 35.08 kg/m?? Body mass index is 35.08 kg/m??. Physical Exam Constitutional: He is oriented to person, place, and time. He appears well- developed and well-nourished. HENT: Head: Normocephalic and atraumatic. Mouth/Throat: Oropharynx is clear and moist. Hard of hearing Eyes: Conjunctivae and EOM are normal. Left eye exhibits no discharge. No scleral icterus. Neck: Normal range of motion. Neck supple. No thyromegaly present. Cardiovascular: Normal rate, regular [...] Musculoskeletal: General: No tenderness, deformity or edema. Neurological: He is alert and oriented to [...] found for: CALCIUM, ALKPHOS, AST, ALT, BILITOT EKG2-sinus bradycardia Lexiscan stress test March [address] Negative for ischemia. Ejection fraction 63% ASSESSMENT Diagnoses and all orders for this visit: Angina pectoris syndrome (CMS/HCC) (Primary) - Transthoracic Echo Complete W Doppler/CF; Future Chest pain, unspecified type - Ambulatory referral to Cardiology Stage 3b chronic kidney disease Family history of early CAD Gastrointestinal hemorrhage associated with peptic ulcer Chronic deep vein thrombosis (DVT) of proximal vein of lower extremity, unspecified laterality (CMS/HCC) Mixed hyperlipidemia PLAN/RECOMMENDATIONS -regards to chest pain, it is [...] informed him about the risk renal failure. Also we discussed the risk of bleeding especially GI bleeding given his significant at GI bleeding 2018. At this time we will discuss with his tie maker Dr. garcia and also will refer him for GI to stratify his risk for GI bleeding. So far he is tolerating Eliquis that he takes for DVT but he does nottake any aspirin or antiplatelet agents. This was a long discussion and I answered the patient's questions and his 's questions. I inform patient if he gets chest pain that is not going away in 10 minutes he should be calling EMS. In regards to stage 3 kidney disease it seems that the patient has glomerular nephritis and followswith Nephrology. - in regards to hyperlipidemia, continue statin. Follow up in the office in in 1 month. Phan Austin MD S PROJECT ENGINEER documented in this encounter Miscellaneous Notes * Addendum Note - Michael Jenkins MA - 05/04/2020 8:30 AM CSTAddended by: MICHAEL JENKINS on: 05/05/2020 03:17 PM Modules accepted: Orders S PROJECT ENGINEER documented in this encounter Plan of Treatment Not on file documented as of this encounter Procedures Procedure Name Priority Date/Time Associated Diagnosis Comments ECG 12-LEAD Routine 05/04/2020 Chest pain, unspecified type documented in this encounter Results * TRANSTHORACIC ECHO (TTE) COMPLETE W DOPPLER/CF WO CONTRAST (05/18/2020 1:40 PM SALES PROJECT ENGINEER) Anatomical Region Laterality Modality Ultrasound 05/18/2020 12:2 3 PM SALES PROJECT ENGINEER Narrative 05/18/2020 2:54 PM SALES PROJECT ENGINEER [facility] Cardiology [address] [facility], [place] [address] [address] [facility] [address], [place] [address] P:[phone] P:[phone] Echocardiographic Report Patient Name: BRITTON NIELSEN : 1955 Study Date: 05/18/2020 12:23:13 PM Gender: M Tech: Location: [place] Ref.Provider: ARLINE Height(Cm): 165 BSA: 2.02 Weight(Kg): [...] Findings: Interpretation Site: Exam was interpreted at [facility]. Left Ventricle: Normal left ventricular systolic function. [...] Signed By: Sherice Causey MD 2020-05-18 14:54:13 SALES PROJECT ENGINEER Procedure Note Vito Causey MD - 05/18/2020 [facility] Cardiology [address] [facility] [address], [place] [address] [address] [facility] [address] [address] P:[phone] P:[phone] Echocardiographic Report Patient Name: BRITTON NIELSENPatient ID: [id number] : [id number] Date: 05/18/2020 12:23:13 PM Gender: MAccession #: [id number] Tech: GMLocation: [place] Ref.Provider: ARLINEHeight(Cm): 165 BSA: 2.02Weight(Kg): 95.26 Heart Rate: 61BP: [...] 0.40 - 0.80 ] m/s MV Decel [id number] [ 150 - 200 ] msec PV Peak Vel1.31 [ 0.40 - 0.80 ] m/s TR Peak Vel2.77 [ 0.40 - 0.80 ] m/s TR Peak PG 31mmHg RVSP38.00 mmHg E'0.08 E/E' 9 Findings: Interpretation Site: Exam was interpreted at [facility]. Left Ventricle: Normal left ventricular systolic function. [...] Signed By: Sherice Causey MD 2020-05-18 14:54:13 SALES PROJECT ENGINEER us Phan Austin MD CV ECHO PROCEDURES F inal Result * ECG 12 lead (05/04/2020) us Phan Austin MD ECG ORDERABLES Devorah l Result documented in this encounter Visit Diagnoses Diagnosis Angina pectoris syndrome (CMS/HCC) (HCC)- Primary Other and unspecified angina pectoris Chest pain, unspecified type Stage 3b chronic kidney disease (HCC) Family history of early CAD Family history of ischemic heart disease Gastrointestinal hemorrhage associated with peptic ulcer Chronic deep vein thrombosis (DVT) of proximal vein of lower extremity, unspecified laterality (HCC) Mixed hyperlipidemia Angina pectoris syndrome (CMS/HCC) (HCC) Other and unspecified angina pectoris documented in this encounter Historical Medications * This list may reflect changes made after this encounter. labetaloL (NORMODYNE,TRAND ATE) 200 mg tablet Take 1 tablet (200 mg total) by mouth 2 (two) times a day 03/26/2020 furosemide (LASIX) 40 mg tablet Take 1 tablet (40 mg total) by mouth daily 03/27/2020 potassium chloride ER 20 mEq CR tablet Take 1 tablet (20 mEq total) by mouth 2 (two) times a day 04/06/2020 traMADoL (ULTRAM) 50 mg tablet Take 50 mg by mouth 2 (two) times a day as needed 06/17/2018 06/15/2020 apixaban (ELIQUIS) 5 mg tablet Take 5 mg by mouth 2 (two) times a day 08/19/2018 06/08/2020 atorvastatin (LIPITOR) 20 mg tablet Take 20 mg by mouth daily 02/11/2020 06/15/2020 Vitamin D2 1,250 mcg (50,000 unit) capsule Take 1 capsule (50,000 Units total) by mouth once a week On Friday02/11/2020 08/19/2023 gabapentin (NEURONTIN) 300 mg capsule Take 300 mg by mouth 2 (two) times a day 01/26/2020 04/29/2022 calcium carbonate (Calcium 500) 1,250 MG (500 mg of elemental calcium) tablet Take by mouth 09/12/20172020 added in this encounter Orders Outpatient Referral Count Last Ordered Date Fir st Ordered Date AMB REFERRAL TO CARDIOLOGY 1 05/04/2020 documented in this encounter Care Teams Blankbook Forwarder Relationship Specialty Start Date End Date Scott Oneill MD PCP - General Internal Medicine 04/27/20 documented as of this encounter
== END 2024-03-28 04:38 | disposition home or self-care (01) ==
PROVIDERS: Emergency Provider Emergency Medicine; PCP Internal Medicine
DX: R07.9 Chest pain, unspecified (principal); Z79.82 Long term (current) use of aspirin; N18.9 Chronic kidney disease, unspecified; I12.9 Hypertensive chronic kidney disease with stage 1 through stage 4 chronic kidney disease, or unspecified chronic kidney disease; E11.22 Type 2 diabetes mellitus with diabetic chronic kidney disease; Z87.891 Personal history of nicotine dependence
CPT/HCPCS: 36415; 71045; 80053; 83690; 84484; 85025; 85055; 85610; 85730; 93005; 99284

== ENCOUNTER 2024-04-13 08:33 | Outpatient (CLI) | payer MEDICARE, OTHER, SELFPAY ==
[2024-04-13 09:20] LABS: Add Urine Microscopic? NO; Appearance Urine Clear (Clear); Basophils Percent Auto 0.4 % (0.2-1.2); Bilirubin Urine Negative (Negative); Blood Urine Negative (Negative); Color Urine Yellow (Yellow); Eosinophils Absolute Auto 0.3 K/mm3 (0-0.3); Eosinophils Percent Auto 4.9 % (0-4.4); Glucose Urine UA Negative (Negative); Hematocrit 34.4 % (42.0-52.0); Hemoglobin 10.5 g/dL (14.0-18.0); Immature Granulocyte Absolute 0.04 K/mm3 (0.00-0.031); Immature Granulocyte Percent A 0.8 % (0-0.5); Ketones Urine Negative (Negative); Leukocyte Esterase Ur Negative LEU/UL (Negative); Lymphocytes Absolute Auto 0.72 K/mm3 (0.9-3.2); Lymphocytes Percent Auto 13.7 % (18.3-44.2); Mean Corpuscular HGB Conc 30.5 g/dl (32-36); Mean Corpuscular Hemoglobin 28.7 pg (26-34); Mean Platelet Volume 9.7 fl (7.4-10.4); Monocytes Absolute Auto 0.4 K/mm3 (0.1-0.6); Monocytes Percent Auto 7.8 % (2.6-8.5); Neutrophils Absolute Auto 3.8 K/mm3 (1.3-6.7); Neutrophils Percent Auto 72.4 % (45.5-73.1); Nitrate Urine Negative (Negative); Platelet Count Result 126 k/mm3 (150-375); Protein Urine Negative (Negative); Red Blood Count 3.66 M/mm3 (4.6-6.20); Red Cell Distribution Width 14.9 % (11.5-14.5); Specific Grav Ur 1.007 (1.001-1.035); Urobilinogen Urine 0.2 mg/dL (<2.0); White Blood Count 5.3 K/mm3 (4.5-10.0); pH Urine 5.5 (5.0-9.0)
[2024-04-13 10:31] LABS: Erythrocyte Sedimentation Rate 115 mm/hr (0-20)
[2024-04-13 10:43] LABS: Alanine Aminotransferase 14 U/L (6-50); Albumin Level 3.9 g/dL (3.5-5.1); Alkaline Phosphatase 90 U/L (38-126); Anion Gap 9 mmol/L (4-12); Aspartate Amino Transferase 17 U/L (17-59); Bilirubin,Total 0.8 mg/dL (0.2-1.3); Blood Urea Nitrogen 34 mg/dL (9-20); Calcium 8.6 mg/dL (8.4-10.2); Carbon Dioxide 23 mmol/L (22-30); Chloride 106 mmol/L (98-107); Estimated Glomerular Filt Rate 26; Glucose 87 mg/dL (65-110); Potassium 5.8 mmol/L (3.4-5.0); Sodium 138 mmol/L (137-145)
[2024-04-14 16:23] LABS: Myeloperoxidase Ab <1.0 AI
== END 2024-04-13 08:34 | disposition home or self-care (01) ==
PROVIDERS: PCP Internal Medicine
DX: R94.7 Abnormal results of other endocrine function studies (principal); Z79.899 Other long term (current) drug therapy; J84.9 Interstitial pulmonary disease, unspecified
CPT/HCPCS: 36415; 80053; 81003; 84402; 84403; 85025; 85652; 86036

== ENCOUNTER 2024-04-28 11:15 | Outpatient (CLI) | payer MEDICARE, OTHER, SELFPAY ==
[2024-04-28 12:02] LABS: Anion Gap 12 mmol/L (4-12); Blood Urea Nitrogen 38 mg/dL (9-20); Calcium 7.7 mg/dL (8.4-10.2); Carbon Dioxide 21 mmol/L (22-30); Chloride 106 mmol/L (98-107); Estimated Glomerular Filt Rate 28; Glucose 124 mg/dL (65-110); Potassium 4.9 mmol/L (3.4-5.0); Sodium 139 mmol/L (137-145)
--- OUTSIDE RECORDS SUMMARY | 2024-04-28 12:39 | XMS_ITS | Clinical Summary ---
Author Organization [facility] [address] Address [address] [place] [address] Care Team Providers Care Garnett Machine Operator Helper Name Role Phone Scott Oneill MD Primary Care Provider [phone] Allergies No known active allergies Medications potassium [...] Diagnosed Date Resolved Date Angina pectoris syndrome ([facility]) 05/04/2020 10/26/2020 Encounters Date Type Department Care Team Description 04/20/2024 Orders Only [facility] Rheumatology [address] [place] [address] 5th [place] [address] [place] [address] Tiffanie Weiss MD 04/16/2024 Documentation [facility] Pulmonary [address] [place] [address] 8th [place] [address] [place] [address] Marce Bernal MD Labs Only 04/15/2024 Telephone [facility] [address] [place] [address] [place] [address] [place] [address] Margret Cobb CMA 04/15/2024 Orders Only [facility] [address] [place] [address] [place] [address] [place] [address] Polly Paulino RN 04/13/2024 Orders Only [facility] Scanning, Provider 04/13/2024 Orders Only [facility] Scanning, Provider 03/17/2024 3:30 PM TECHNICAL PUBLICATIONS WRITER Office Visit [facility] [address] [place] [address] Medicine 5th [place] [address] [place] [id number] Popping of left knee joint (Primary Dx); Chronic SI joint pain; Low back pain, unspecified back pain laterality, unspecified chronicity, unspecified whether sciatica present 03/05/2024 Documentation [facility] 8th [place] [address] [place] [address] 386-212 Marce Bernal MD Labs Only 03/05/2024 Telephone [facility] 8th [place] [address] Margret Cobb CMA 03/01/2024 Orders Only [facility] Scanning, Provider 02/11/2024 Documentation [facility] 8th [place] [address] Marce Bernal MD multidisciplinary conference 02/11/2024 Telephone [facility] [address] [place] [address] Margret Cobb, RODDING ANODE WORKER 02/10/2024 Documentation [facility] [address] [place] [address] [place] [address] Polly Paulino RN 02/10/2024 Orders Only [facility] [address] [place] [address] [place] [address] Marce Bernal MD SOB (shortness of breath) (Primary Dx); Pulmonary hypertension (HCC); Interstitial lung disease (CMS/HCC) (HCC) 02/05/2024 3:00 PM TECHNICAL PUBLICATIONS WRITER Office Visit [facility] [address] [place] [address] [place] [address] Marce Bernal MD Microscopic polyangiitis (HCC) (Primary Dx); Interstitial lung disease (CMS/HCC) (HCC); Stage 3b chronic kidney disease (HCC); Immunosuppression (HCC); Chronic kidney disease, stage IV (severe) (CMS/HCC) (HCC); 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); Morbid (severe) obesity due to excess calories (HCC) 02/05/2024 12:56 PM TECHNICAL PUBLICATIONS WRITER - 02/05/2024 11:59 PM TECHNICAL PUBLICATIONS WRITER Hospital Encounter [facility] [address] [address] Microscopic polyangiitis (HCC) Discharge Disposition: Discharge to home or self care 02/05/2024 12:35 PM TECHNICAL PUBLICATIONS WRITER - 02/05/2024 11:59 PM TECHNICAL PUBLICATIONS WRITER Hospital Encounter [facility] [address] [place] [address] Cough, unspecified type; Cough with hemoptysis Discharge Disposition: Discharge to home or self care 02/05/2024 11:49 AM TECHNICAL PUBLICATIONS WRITER - 02/05/2024 11:59 PM TECHNICAL PUBLICATIONS WRITER Hospital Encounter [facility] [address] [place] [address] Marce Bernal MD Microscopic polyangiitis (HCC) Discharge Disposition: Discharge to home or self care 02/02/2024 10:45 AM TECHNICAL PUBLICATIONS WRITER Office Visit [facility] Cardiology [address] [place] [address] Kathrin Austin MD S/P CABG x 3 (Primary Dx); Mixed hyperlipidemia; Hypertension secondary to other renal disorders; Family history of early CAD; GOLDSTEIN (dyspnea on exertion); Chronic deep vein thrombosis (DVT) of proximal vein of lower extremity, unspecified laterality (HCC); Stage 3b chronic kidney disease (HCC); Interstitial lung disease (CMS/HCC) (HCC) from Last 3 Months Surgical History Surgery [...] on file Legal Sex Male 1:23 AM TECHNICAL PUBLICATIONS WRITER Gender Identity Male 12/24/2023 11:25 AM CDT Sexual Orientation Straight 12/24/2023 11 :25 AM CDT 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 Start Date Job End Date [employer], 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, 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 Not on file Not on file Not on file Obstetrics History Last Filed Vital Signs Vital Sign Reading Time Taken Comments Blood Pressure 165/75 03/17/2024 3:28 PM TECHNICAL PUBLICATIONS WRITER Pulse 56 03/17/2024 3:28 PM TECHNICAL PUBLICATIONS WRITER Temperature 36.6 ??C (97.8 ??F) 03/17/2024 3:28 PM CS T Respiratory Rate 18 02/05/2024 2:17 PM TECHNICAL PUBLICATIONS WRITER Oxygen Saturation 97% 03/17/2024 3:28 PM TECHNICAL PUBLICATIONS WRITER Inhaled Oxygen Concentration - - Weight 105.6 kg (232 lb 12.8 oz) 03/17/2024 3:28 PM TECHNICAL PUBLICATIONS WRITER Height 166.4 cm (5' 5.5 ) 03/17/2024 3:28 PM TECHNICAL PUBLICATIONS WRITER Body Mass Index 38.15 03/17/2024 3:28 PM TECHNICAL PUBLICATIONS WRITER Plan of Treatment Health Maintenance Due Date [...] Date/Time Associated Diagnosis Comments CBC WITH AUTO DIFFERENTIAL Routine 04/13/2024 3:43 PM TECHNICAL PUBLICATIONS WRITER SCAN - LABS 04/13/2024 SCAN - LABS 04/13/2024 ERYTHROCYTE SEDIMENTATION RATE Routine 04/13/2024 Interstitial lung disease (CMS/HCC) (HCC) High risk medication use COMPREHENSIVE METABOLIC PANEL Routine 04/13/2024 Interstitial lung disease (CMS/HCC) (HCC) High risk medication use SCAN - LABS 03/01/2024 PULMONARY FUNCTION TEST (PFT) Routine 02/05/2024 1:57 PM TECHNICAL PUBLICATIONS WRITER Microscopic polyangiitis (HCC) XR CHEST PA LATERAL 2 VIEWS Schedule Routine, Read Routine (OP Routine) 02/05/2024 12:47 PM TECHNICAL PUBLICATIONS WRITER Cough, unspecified type Cough with hemoptysis CT CHEST HIGH RESOLUTION WO CONTRAST Routine 02/05/2024 12:22 PM TECHNICAL PUBLICATIONS WRITER Microscopic polyangiitis (HCC) POCT LIPID PANEL Routine 02/02/2024 11:18 AM TECHNICAL PUBLICATIONS WRITER Mixed hyperlipidemia from Last 3 Months Results * (ABNORMAL) CBC with auto differential (04/13/2024 3:43 PM TECHNICAL PUBLICATIONS WRITER) SCRIBED WBC 5.3 4.5 - 10.0 k/cumm EXTERNAL LAB SCRIBED RBC 3.66(A) 4.6 - 6.20 m/cumm EXTERNAL LAB SCRIBED Hemoglobin 10.5(A) 14.0 - 18.0 g/dL EXTERNAL LAB SCRIBED Platelets 126(A) 150 - 375 k/cumm EXTERNAL LAB Blood us Tiffanie Weiss MD LAB BLOOD ORDERABLES Edited Resu lt - Final EXTERNAL LAB * SCAN - LABS (04/13/2024) us Provider Scanning Final Result * SCAN - LABS (04/13/2024) us Provider Scanning Final Result * (ABNORMAL) Erythrocyte sedimentation rate (04/13/2024) Pathologist [facility] SCRIBED ESR 115(A) 0 - 20 mm/hr EXTERNAL LAB Blood 04/13/2024 Tiffanie Weiss MD LAB BLOOD ORDERABLES Final Resul t EXTERNAL LAB * (ABNORMAL) Comprehensive metabolic panel (04/13/2024) [facility] SCRIBED Creatinine 2.50(A) 0.7 - 1.3 mg/dl EXTERNAL LAB SCRIBED Bilirubin 0.8 0.2 - 1.3 mg/dl EXTERNAL LAB SCRIBED Alkaline Phosphatase 90 38 - 126 Units/L EXTERNAL LAB SCRIBED Alanine Transaminase (ALT) 14 6 - 50 Units/L EXTERNAL LAB SCRIBED Aspartate Transaminase (AST) 17 17 - 59 Units/L EXTERNAL LAB Blood 04/13/2024 Tiffanie Weiss MD LAB BLOOD ORDERABLES Final Resul t Performing Organization Address City/[facility] Hospital/ZIP Co de Phone Number EXTERNAL LAB * SCAN - LABS (03/01/2024) us Provider Scanning Final Result * Pulmonary Function Test - (02/05/2024 1:57 PM TECHNICAL PUBLICATIONS WRITER) Pathologist [facility] FVC PRE 2.39 L [facility] FVC %PRE PRED 67 % [facility] FEV1 PRE 2.10 L [facility] FEV1 %PRE PRED 77 % [facility] FEV1/FVC PRE 88.2 % [facility] DLCO PRE 6.9 ml/min/mmH g [facility] DLCO %PRE PRED 31 % [facility] Anatomical Region Laterality Modality PFT 02/05/2024 1:40 PM TECHNICAL PUBLICATIONS WRITER Narrative 02/06/2024 5:40 PM TECHNICAL PUBLICATIONS WRITER Table formatting from the original result was not included. [facility] Division of Pulmonary & Critical Care Medicine [address] [place] [address]; [facility] [address]; [place], [place] ??[address]; [phone] Pulmonary Function Laboratory Pulmonary Stress Test Simple/Oxygen [...] with the written final report. PFT performed at:->[facility] Adult PFT Lab- [facility] Procedure:->Spirometry Procedure:->DLCO [...] and %HbO2 is age dependent. However, the [facility] Pulmonary Function Laboratory defines hypoxemia as a PaO2 <56 mm Hg or a %HbO2 <89%. us Marce Bernal MD PFT ORDERABLES Final Result * X-ray chest 2 views (02/05/2024 12:47 PM TECHNICAL PUBLICATIONS WRITER) Anatomical Region Laterality Modality Body, Chest N/A Computed Radiogr aphy 02/05/2024 1:34 PM TECHNICAL PUBLICATIONS WRITER Impressions 02/05/2024 1:44 PM TECHNICAL PUBLICATIONS WRITER Comparison is made to chest radiograph from [...] Neisha Franks M.D. Narrative 02/05/2024 1:44 PM TECHNICAL PUBLICATIONS WRITER EXAMINATION: 2 view chest radiograph Procedure Note [...] High Resolution WO Contrast (02/05/2024 12:22 PM TECHNICAL PUBLICATIONS WRITER) Anatomical Region Laterality Modality Chest N/A Computed Tomogra phy 02/05/2024 12:5 1 PM TECHNICAL PUBLICATIONS WRITER Impressions 02/05/2024 12:51 PM TECHNICAL PUBLICATIONS WRITER Diffuse fibrotic interstitial lung disease throughout the [...] Courtney Shin M.D. Narrative 02/05/2024 12:51 PM TECHNICAL PUBLICATIONS WRITER EXAMINATION: ??Computed tomography of the chest high-resolution [...] by: Courtney Shin M.D. Marce Bernal MD IM CT PROCEDURES Final Resu lt * POCT lipid panel (02/02/2024 11:18 AM TECHNICAL PUBLICATIONS WRITER) Cholesterol, POC 155 mg/dL Comment:GLU = 100 HDL, POC 30 mg/dL Triglycerides, POC 191 mg/dL LDL Cholesterol POC 86 mg/dL Chol/HDL Ratio, POC 2.9 Non-HDL Cholesterol, POC 125 mg/dL Cholesterol Total, POC 155 mg/dL Capillary blood 02/02/2024 1 1:18 AM TECHNICAL PUBLICATIONS WRITER Kathrin Austin MD POINT OF CARE TEST O RDERABLES Final Result from Last 3 Months Insurance MEDICARE MEDICARE [facility] MEDICARE [employer] [place] Advance Directives For more information, please contact: [phone] * Full Code (Latest Code Status on File) Date Activated Date Inactivated Comments 07/17/2020 8:05 PM 07/19/2020 7:41 PM * Full Code Date Activated Date Inactivated Comments 06/08/2020 6:02 PM 06/15/2020 7:20 PM Healthcare Agents on File Name Relationship Healthcare Agent Relationship Communication Shyann Nielsen Spouse First Alternat e Health Care Agent Care Teams Garnett Machine Operator Helper Relationship Specialty Start Date End Date Scott Oneill MD PCP - General Internal Medicine 04/27/20
--- OUTSIDE RECORDS SUMMARY | 2024-04-28 12:39 | XMS_ITS | Clinical Summary ---
Author Organization [facility] Address [address] [place] [address] Care Team Providers Care Rolfer Name Role Phone Scott Oneill MD Primary Care Provider [phone] Allergies No known active allergies Medications atorvastatin (LIPITOR) 20 mg tablet Take 20 mg by mouth late in the day. Active labetalol (NORMODYNE) 100 mg tablet Take 100 mg by mouth every 12 hours. Active pantoprazole (PROTONIX) 20 mg Tablet, Delayed Release (E.C.) Take 20 mg by mouth every 12 hours. Active potassium chloride (K-DUR) 20 mEq Extended Release tablet Take 20 mEq by mouth 2 times daily. Active predniSONE (DELTASONE) 5 mg tablet Take 10 mg by mouth 2 times daily with meals . Active ALPRAZolam (XANAX) 0.25 mg tablet Take 0.125 mg by mouth 3 times daily as needed for Anxiety. Active aspirin (ECOTRIN EC) 81 mg Tablet, Delayed Release (E.C.) Take 81 mg by mouth daily. Active calcium citrate-vitamin D3 (CITRACAL WITH VIT D) 200 mg calcium -250 unit Tablet Take 1 Tablet by mouth 3 times daily. Active cyclophosphamide (CYTOXAN) 50 mg capsule Take 100 mg by mouth daily. Active furosemide (LASIX) 40 mg tablet Take 40 mg by mouth daily. Active traMADol (ULTRAM) 50 mg tablet Take 100 mg by mouth every 6 hours as needed for Pain. Active ferrous sulfate 325 mg (65 mg iron) tablet Take 325 mg by mouth 3 times daily with meals. Active Active Problems Problem Noted Date Diagnosed Date Anemia of chronic renal failure, stage 4 (severe ) 05/02/2017 Acute hemolytic anemia 05/02/2017 Glomerulonephritis 05/02/2017 Family History Medical History Relation Name Comments Heart Disease Brother 1 Lung Cancer Brother 1 Heart Disease Brother 2 Heart Disease Brother 3 Heart Disease Brother 4 Other Brother 5 No Known Problems Brother 6 Heart Disease Father Heart Disease Mother Heart Disease Sister 1 Heart Disease Sister 2 No Known Problems Sister 3 Diabetes Sister 4 Kidney Disease Sister 4 Relation Name Status Comments Brother 1 Brother 2 Alive Brother 3 Alive Brother 4 Alive Brother 5 Alive Brother 6 Alive Father Mother Sister 1 Alive Sister 2 Alive Sister 3 Alive Sister 4 Social History Tobacco Use Types Packs/Day Years Used Date Smoking Tobacco: Former Cigarettes 1 38 0 05/02/1973 - 05/02/2011 Alcohol Use Standard Drinks/Week Comments No 0 (1 standard drink = 0.6 oz pur e alcohol) Sex and Gender Information Value Date Recorded Sex Assigned at Not on file Legal Sex Male 9:59 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 Gender Identity Not on file Sexual Orientation Not on file Last Filed Vital Signs Vital Sign Reading Time Taken Comments Blood Pressure 146/58 05/02/2017 10:20 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 Pulse 103 05/02/2017 10:20 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 Temperature 36.9 ??C (98.5 ??F) 05/02/2017 10:[address] Respiratory Rate 18 05/02/2017 10:20 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 Oxygen Saturation - - Inhaled Oxygen Concentration - - Weight 97.1 kg (214 lb) 05/02/2017 10:20 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 Height 166.4 cm (5' 5.5 ) 05/02/2017 10:20 AM CS T Body Mass Index 35.07 05/02/2017 10:20 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 Plan of Treatment Health Maintenance Due Date Last Done Comments DTAP/TDAP/TD VACCINES (1 - Tdap) 1973 COLORECTAL SCREENING 1999 Colorectal Cancer Screening 1999 FIT-DNA Q 3 years 1999 FIT/FOBT Q 1 year 1999 Flex Sig/CT Colonography Q 5 years 1999 PNEUMOCOCCAL VACCINE 65+ YEARS (1 of 1 - PCV) 02/14/20 04 ZOSTER VACCINE (1 of 2) 02/14/2004 RSV VACCINE (60+ or ) (1 - Risk 60-74 years 1-dose series) 2014 INFLUENZA VACCINE (#1) 2023 Insurance [facility] BLUE ACCESS CHOICE Care Teams Rolfer Relationship Specialty Start Date End Date Scott Oneill MD [address] [facility] [address] [place] [address] PCP - General Internal Medicine 05/02/17
--- OUTSIDE RECORDS SUMMARY | 2024-04-28 12:39 | XMS_ITS | Encounter Summary ---
Author Organization [facility] Address [address] [place] [address] Phone Care Team Providers Care Search Planner Name Role Phone Scott Oneill MD Primary Care Provider Tavo Mishra MD Unavailable [phone] Gilmer Barnard MD Unavailable [phone] Kev Moser MD Unavailable Reason for Visit * Reason Comments Medication Refill Encounter Details Date Type Department Care Team (Late st Contact Info) Description 07/01/2023 Refill [facility] [address] [place] [phone] Sindi Qiu, FORM MAKER, MANAGER STORY [address] [place] [address] Medication Refill Social History Tobacco [...] on file 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 05/12/2024 11:15 AM CERAMIC TILE INSTALLATION HELPER Office Visit [facility] [address] [phone] Kev Moser MD [address] [place] [phone] 05/12/2024 11:30 AM CERAMIC TILE INSTALLATION HELPER Clinical Support [facility] [address] [phone] Nurse, [facility] documented as of this encounter Visit Diagnoses Not on filedocumented in this encounter Additional Health Concerns Assessment Noted Time PHQ-9 Depression Total Score: 0 11/25/19 11:34 AM CDT documented as of this encounter Care Teams Search Planner Relationship Specialty Start Date End Date Scott Oneill MD PCP - General Internal Medicine 04/29/17 Tavo Mishra MD [address] [place] [address] [phone] Internal Medicine 04/29/17 Gilmer Barnard MD [address] [place] [address] [phone] Consulting Physician Internal Medicine 08/28/17 4 Kev Moser MD [address] [place] [phone] Consulting Physician Oncology 02/09/20 documented as of this encounter
--- OUTSIDE RECORDS SUMMARY | 2024-04-28 12:39 | XMS_ITS | Encounter Summary ---
Author Organization [facility] Address [address] [place] [address] Phone Care Team Providers Care Photo Mask Pattern Generator Name Role Phone Scott Oneill MD Primary Care Provider Tavo Mishra MD Unavailable [phone] Gilmer Barnard MD Unavailable [phone] Kev Moser MD Unavailable [phone] Reason for Visit * Reason Comments Medication Refill Encounter Details Date Type Department Care Team (Late st Contact Info) Description 07/27/2023 Refill [facility] [address] [phone] Kev Moser MD [address] [place] [phone] Medication Refill Social History Tobacco Use [...] on file 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 Refill if appropriate. documented in this encounter Plan of Treatment Upcoming Encounters Date Type Department Care Team (Late st Contact Info) Description 05/12/2024 11:00 AM JOURNEYMAN ELECTRICIAN PV INSTALLER Lab [facility] [address] [phone] Lab, [facility] 05/12/2024 11:15 AM JOURNEYMAN ELECTRICIAN PV INSTALLER Office [facility] [address] [phone] Kev Moser MD [address] [place] [phone] 05/12/2024 11:30 AM JOURNEYMAN ELECTRICIAN PV INSTALLER Clinical Support [facility] [address] [phone] Nurse, [facility] documented as of this encounter Visit Diagnoses Not on filedocumented in this encounter Additional Health Concerns Assessment Noted Time PHQ-9 Depression Total Score: 0 11/25/19 21 11:34 AM CDT documented as of this encounter Care Teams Photo Mask Pattern Generator Relationship Specialty Start Date End Date Scott Oneill MD PCP - General Internal Medicine 04/29/17 Tavo Mishra MD [address] [place] [address] [phone] Internal Medicine 04/29/17 Gilmer Barnard MD [address] [place] [address] [phone] Consulting Physician Internal Medicine 08/28/17 4 Kev Moser MD [address] [place] [phone] Consulting Physician Oncology 02/09/20 documented as of this encounter
--- OUTSIDE RECORDS SUMMARY | 2024-04-28 12:39 | XMS_ITS | Encounter Summary ---
Author Organization [facility] Address [address] [place] [address] Phone Care Team Providers Care Training And Development Professional Name Role Phone Scott Oneill MD Primary Care Provider Tavo Mishra MD Unavailable [phone] Gilmer Barnard MD Unavailable [phone] Kev Moser MD Unavailable [phone] Reason for Visit * Reason Comments Medication Refill Encounter Details Date Type Department Care Team (Late st Contact Info) Description 08/26/2023 Refill [facility] [address] [phone] Kev Moser MD [address] [place] [phone] Medication Refill Social History Tobacco Use [...] on file Legal Sex Male 3:42 PM PROCESS CONTROL MANAGER Gender Identity Not on file Sexual [...] st Contact Info) Description 05/12/2024 11:00 AM PROCESS CONTROL MANAGER Lab [facility] [address] [phone] Lab, Cc [facility] 05/12/2024 11:15 AM PROCESS CONTROL MANAGER Office [facility] [address] [phone] Kev Moser MD [address] [place] [phone] 05/12/2024 11:30 AM PROCESS CONTROL MANAGER Clinical Support [facility] [address] [phone] Nurse, Cc [facility] documented as of this encounter Visit Diagnoses Not on filedocumented in this encounter Additional Health Concerns Assessment Noted Time PHQ-9 Depression Total Score: 0 11/25/19 21 11:34 AM CDT documented as of this encounter Care Teams Training And Development Professional Relationship Specialty Start Date End Date Scott Oneill MD PCP - General Internal Medicine 04/29/17 Tavo Mishra MD [address] [place] [address] [phone] Internal Medicine 04/29/17 Gilmer Barnard MD [address] [place] [address] [phone] Consulting Physician Internal Medicine 08/28/17 4 Kev Moser MD [address] [place] [phone] Consulting Physician Oncology 02/09/20 documented as of this encounter
--- OUTSIDE RECORDS SUMMARY | 2024-04-28 12:39 | XMS_ITS | Encounter Summary ---
Author Organization 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
--- OUTSIDE RECORDS SUMMARY | 2024-04-28 12:39 | XMS_ITS | Clinical Summary ---
Author Organization [facility] Address [address] [address] Phone Care Team Providers Care Solution Manager Name Role Phone Scott Oneill MD Primary Care Provider [phone] Tavo Mishra MD Unavailable [phone] Kev Moser MD Unavailable [phone] Allergies No known active allergies Medications Calcium Carb-Cholecalcifero l (CALCIUM 600 + D PO) Take by mouth 2 times daily. Active potassium chloride SA (KLORCON M) 20 MEQ Tablet Controlled Release Take 20 mEq by mouth 2 times daily. Active furosemide (LASIX) 40 MG Tablet Take 40 mg by mouth daily. Active labetalol (NORMODYNE) 200 MG Tablet Take 200 mg by mouth 2 times daily. Active ergocalciferol (VITAMIN D) 10333 UNIT Capsule Take 50,000 Units by mouth once a week. Active cyanocobalamin 1000 MCG Tablet Take 1 tablet by mouth daily 30 Tab 07/25/19 19 Active traMADol (ULTRAM) 50 MG Tablet 0 06/18/19 19 Active tadalafil (CIALIS) 20 MG Tablet TAKE 1 TABLET BY MOUTH ONCE DAILY NEEDED 08/16/19 20 Active sodium bicarbonate 650 MG Tablet Take 650 mg by mouth 2 times daily. 10/31/19 21 Active atorvastatin (LIPITOR) 40 MG Tablet 12/18/19 21 Active aspirin EC 81 MG Tablet Delayed Response Take 81 mg by mouth daily. Active pantoprazole (PROTONIX) 40 MG Tablet Delayed Response TAKE 1 TABLET BY MOUTH IN THE MORNING 02/08/20 Active pregabalin (LYRICA) 50 MG Capsule Take 50 mg by mouth 3 times daily. 01/22/20 Active albuterol 108 (90 Base) MCG/ACT Aerosol Solution 03/26/20 Active Anoro Ellipta 62.5-25 MCG/ACT AEROSOL POWDER, BREATH ACTIVATED INHALE 1 PUFF BY MOUTH ONCE DAILY 03/26/20 Active mycophenolate mofetil (CELLCEPT) 500 MG Tablet 1 tablet in AM and 1 in PM Active cyclobenzaprine (FLEXERIL) 5 MG Tablet Take 5 mg by mouth. 09/10/19 24 Active irbesartan (AVAPRO) 300 MG Tablet Take 300 mg by mouth daily. 09/09/19 24 Active calcitRIOL (ROCALTROL) 0.25 MCG Capsule 11/12/19 24 Active ferrous sulfate (SV Iron) 325 (65 Fe) MG TabletIndications:O ther autoimmune hemolytic anemia (HCC),Anemia in stage 3a chronic kidney disease (HCC),Iron deficiency anemia due to sideropenic dysphagia Take 1 tablet by mouth once daily 30 Tablet 2 03/26/20 24 Active apixaban (Eliquis) 5 MG TabletIndications:P rophylaxis of Venous Thromboembolism Take 1 Tablet by mouth 2 times daily. Indications: Prevention of Unwanted Clot in Veins 14 Tablet 04/01/19 25 Active apixaban (ELIQUIS) 5 MG TabletIndications:H istory of Thromboembolic Disease Take 1 Tablet by mouth 2 times daily. Indications: History of Disease involving a Thrombosis or an Embolism 04/07/19 25 Active apixaban (Eliquis) 5 MG TabletIndications:P rophylaxis of Venous Thromboembolism Take 1 Tablet by mouth 2 times daily. Indications: Prevention of Unwanted Clot in Veins 03/01/20 24 025 Discontin ued(Reord er) Active Problems Patient Care Coordination No te Formatting of this note migh t be different from the original. PT HAS LABS DRAWN AT [facility] Problem Noted Date Diagnosed Date Vitamin B 12 deficiency 03/06/2022 Myelofibrosis 10/22/2017 Stage 3 chronic kidney disease 05/23/2017 Glomerulonephritis 05/23/2017 Hemolytic anemia 05/23/2017 Iron deficiency anemia due to sideropenic dyspha marques 05/23/2017 Encounters Date Type Department Care Team Description 04/07/2024 11:15 AM DIVISION OPERATIONS MANAGER Clinical Support [facility] [address] [address] Nurse, Cc [facility] Stage 3a chronic kidney disease (HCC) (Primary Dx); Vitamin B 12 deficiency 04/07/2024 11:10 AM DIVISION OPERATIONS MANAGER Lab [facility] [address] [address] Lab, Cc [facility] Anemia in stage 3a chronic kidney disease (HCC); Stage 3a chronic kidney disease (HCC) 04/07/2024 Travel 04/01/2024 11:30 AM DIVISION OPERATIONS MANAGER Clinical Support [facility] [address] [address] Nurse, Cc [facility] Other autoimmune hemolytic anemia (HCC) 04/01/2024 Travel 03/30/2024 Telephone [facility] [address] [address] Kev Moser MD 03/26/2024 Refill [facility] [address] [address] Kev Moser MD Medication Refill 03/10/2024 11:30 AM DIVISION OPERATIONS MANAGER Clinical Support [facility] [address] [address] Nurse, Cc [place] Vitamin B 12 deficiency (Primary Dx) 03/10/2024 11:15 AM DIVISION OPERATIONS MANAGER Office Visit [facility] [address] [address] Tanvi Tobar APRN, PHYSICAL SECURITY MANAGER Anemia in stage 3a chronic kidney disease (HCC) (Primary Dx); Stage 3a chronic kidney disease (HCC); Vitamin B 12 deficiency 03/10/2024 11:00 AM DIVISION OPERATIONS MANAGER Lab [facility] [address] [address] Lab, Cc [place] Iron deficiency anemia due to sideropenic dysphagia; Other autoimmune hemolytic anemia (HCC); Stage 3a chronic kidney disease (HCC) 03/10/2024 Travel 03/01/2024 1:45 PM DIVISION OPERATIONS MANAGER Clinical Support [facility] [address] [phone] Nurse, Cc Marianne Other autoimmune hemolytic anemia (HCC) 03/01/2024 Travel 02/28/2024 Refill [facility] [address] [address] Kev Moser MD Medication Refill 02/11/2024 11:30 AM DIVISION OPERATIONS MANAGER Clinical Support [facility] [address] [address] Nurse, Cc Marianne Vitamin B 12 deficiency (Primary Dx) 02/11/2024 11:25 AM DIVISION OPERATIONS MANAGER Lab [facility] [address] [address] Lab, Cc Marianne Iron deficiency anemia due to sideropenic dysphagia; Other autoimmune hemolytic anemia (HCC); Stage 3a chronic kidney disease (HCC) 02/11/2024 Travel 02/02/2024 12:00 PM DIVISION OPERATIONS MANAGER Clinical Support [facility] [address] [phone] Nurse, Cc Marianne Other autoimmune hemolytic anemia (HCC) 02/02/2024 Travel 01/30/2024 Refill [facility] [address] [address] Kev Moser MD Medication Refill from Last 3 Months Immunizations Immunization Administration [...] on file Legal Sex Male 3:42 PM DIVISION OPERATIONS MANAGER Gender Identity Not on file Sexual Orientation Not on file Last Filed Vital Signs Vital Sign Reading Time Taken Comments Blood Pressure 132/66 04/07/2024 10:51 AM DIVISION OPERATIONS MANAGER Pulse 62 04/07/2024 10:51 AM DIVISION OPERATIONS MANAGER Temperature 36.4 ??C (97.6 ??F) 04/07/2024 10:[address] Respiratory Rate 18 04/07/2024 10:51 AM DIVISION OPERATIONS MANAGER Oxygen Saturation 98% 04/07/2024 10:51 AM DIVISION OPERATIONS MANAGER Inhaled Oxygen Concentration - - Weight 104.8 kg (231 lb) 04/07/2024 10:51 AM DIVISION OPERATIONS MANAGER Height 165.1 cm (5' 5 ) 04/07/2024 10:51 AM DIVISION OPERATIONS MANAGER Body Mass Index 38.44 04/07/2024 10:51 AM DIVISION OPERATIONS MANAGER Plan of Treatment Upcoming Encounters Date Type Department Care Team (Late st Contact Info) Description 05/12/2024 11:00 AM DIVISION OPERATIONS MANAGER Lab [facility] [address] [address] Lab, Cc [facility] 05/12/2024 11:15 AM DIVISION OPERATIONS MANAGER Office Visit [facility] [address] [phone] Kev Moser MD [address] [place] [phone] 05/12/2024 11:30 AM DIVISION OPERATIONS MANAGER Clinical Support [facility] [address] [phone] Nurse, [facility]da [facility] Health Maintenance Due Date Last Done Comments [...] Procedure Name Priority Date/Time Associated Diagnosis Comments LAB - MISCELLANEOUS 04/13/2024 1 2:00 AM DIVISION OPERATIONS MANAGER COMPLETE BLOOD COUNT (CBC) WITH DIFF Routine 04/07/2024 10:26 AM DIVISION OPERATIONS MANAGER Anemia in stage 3a chronic kidney disease (HCC) Stage 3a chronic kidney disease (HCC) COMPLETE BLOOD COUNT (CBC) WITH DIFF Routine 03/10/2024 11:00 AM DIVISION OPERATIONS MANAGER 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) Stage 3a chronic kidney disease (HCC) CMP (COMPREHENSIVE METABOLIC PANEL) Routine 03/10/2024 11:00 AM DIVISION OPERATIONS MANAGER 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) Stage 3a chronic kidney disease (HCC) LACTATE DEHYDROGENASE (LD) Routine 03/10/2024 11:00 AM DIVISION OPERATIONS MANAGER 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) Stage 3a chronic kidney disease (HCC) VITAMIN B12 Routine 03/10/2024 11:00 AM DIVISION OPERATIONS MANAGER 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) Stage 3a chronic kidney disease (HCC) FOLIC ACID (FOLATE) Routine 03/10/2024 1 1:00 AM DIVISION OPERATIONS MANAGER 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) Stage 3a chronic kidney disease (HCC) FERRITIN Routine 03/10/2024 11:00 AM DIVISION OPERATIONS MANAGER 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) Stage 3a chronic kidney disease (HCC) RETICULOCYTE COUNT (RETIC) Routine 03/10/2024 11:00 AM DIVISION OPERATIONS MANAGER 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) Stage 3a chronic kidney disease (HCC) IRON W/ IRON BINDING CAPACITY [place] Routine 03/10/2024 11:00 AM DIVISION OPERATIONS MANAGER 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 WBC 4.6 4.0 - 10.0 10*3/uL [facility] HGB 10.3(L) 13.7 - 17.5 g/dL [facility] HCT 33.6(L) 40.1 - 51.0 % [facility] [facility] PLT 111(L) 163 - 369 10*3/uL [facility] MPV 10.5 9.4 - 12.4 fL [facility] RBC 3.64(L) 4.63 - 6.08 10*6/uL [facility] MCV 92 79 - 95 fL [facility] MCH 28.3 25.6 - 32.2 pg [facility] MCHC 30.7(L) 32.2 - 36.5 g/dL [facility] RDW 14.5(H) 11.6 - 14.4 % [facility] Absolute Neutrophil Count 3,365 cells/uL [facility] ER SPECIALISTS [facility] Absolute Seg Count 3,365 1,440 - 6,600 cells/uL [facility] Absolute Lymph Count 784 760 - 4,000 cells/uL [facility] Absolute [place] Count 138(L) 160 - 1,200 cells/uL [facility] Absolute Eos Count 92 0 - 300 cells/uL [facility] Absolute Baso Count 92 0 - 100 cells/uL [facility] Segmented Neutrophils 73(H) 36 - 66 % [facility] Lymphocytes 17(L) 19 - 40 % [facility]TER [facility] Monocytes 3(L) 4 - 12 % [facility] Eosinophils 2 0 - 3 % [facility] Basophils 2(H) 0 - 1 % [facility] [facility] Metamyelocytes 2 0 - 2 % CANCE R [employer] [facility] Myelocytes 1 0 - 2 % [facility] CE [facility]TER [facility] WBC Estimate Normal [facility] [employer] [facility] Platelet Estimate Low CA NCER [employer] [facility] RBC Morphology Normal CANCE R [employer] [facility] Blood 04/07/2024 10:2 6 AM DIVISION OPERATIONS MANAGER Narrative [facility] [employer] [facility] - 04/07/2024 11:15 AM DIVISION OPERATIONS MANAGER Release to patient->Immediate Tanvi Tobar APRN, PHYSICAL SECURITY MANAGER HEMATOLOGY ORDERABLES Final Result [facility] [employer] [facility] [address] [place] [address], [place] [phone] * IRON W/ IRON BINDING CAPACITY [place] (03/10/2024 11:00 AM DIVISION OPERATIONS MANAGER) IRON 66 50 - 212 ug/dL [facility] [employer] [facility] UIBC 205 155 - 355 ug/dL [facility] [employer] [facility] TIBC 271 261 - 478 ug/dl [facility] [employer] [facility] % Saturation 24 20 - 50 % [facility] [employer] [facility] 03/10/2024 11:0 0 AM DIVISION OPERATIONS MANAGER Narrative [facility] - 03/10/2024 12:06 PM DIVISION OPERATIONS MANAGER Release to patient->Immediate Kev Moser MD LAB SEND OUTS Final Resul t Performing Organization Address City/[facility]/ZIP Co de Phone Number [facility] [employer] [facility] [address] [place] [place] [address], [place] [phone] * VITAMIN B12 (03/10/2024 11:00 AM DIVISION OPERATIONS MANAGER) Vitamin B12 405 180 - 914 pg/mL [facility] [employer] [facility] Blood 03/10/2024 11:0 0 AM DIVISION OPERATIONS MANAGER [facility] - 03/11/2024 2:49 PM DIVISION OPERATIONS MANAGER Release to patient->Immediate Kev Moser MD CHEMISTRY ORDERABLES Final Result [facility] [employer] [facility] [address] [place] [address], [place] [phone] * (ABNORMAL) RETICULOCYTE COUNT (RETIC) (03/10/2024 11:00 AM DIVISION OPERATIONS MANAGER) Reticulocyte count 2.14(H) 0.51 - 1.81 % [facility] [employer] [facility] RET-He 29.10 28.20 - 36.60 pg [facility] [employer] [facility] Comment: RET-He is a direct assessment of incorporation of iron into erythrocyte hemoglobin. It provides an indirect measure of the iron available for new erythropoiesis over past 2-4 days. Blood 03/10/2024 11:0 0 AM DIVISION OPERATIONS MANAGER [facility] - 03/10/2024 11:15 AM DIVISION OPERATIONS MANAGER Release to patient->Immediate us Kev Moser MD HEMATOLOGY ORDERABLES Final Result Performing Organization Address City/[facility]/ZIP Co de Phone Number CANCER [employer] [facility] [address] [place] [address], * LACTATE DEHYDROGENASE (LD) (03/10/2024 11:00 AM DIVISION OPERATIONS MANAGER) LDH 187 140 - 271 U/L [facility] Blood 03/10/2024 11:0 0 AM DIVISION OPERATIONS MANAGER [facility] - 03/10/2024 12:06 PM DIVISION OPERATIONS MANAGER Release to patient->Immediate us Kev Moser MD CHEMISTRY ORDERABLES Final Result [facility] [address] [place] [address], * FOLIC ACID (FOLATE) (03/10/2024 11:00 AM DIVISION OPERATIONS MANAGER) Folate 12.20 >=5.90 ng/mL [facility] Blood 03/10/2024 11:0 0 AM DIVISION OPERATIONS MANAGER [employer] [facility] - 03/11/2024 2:49 PM DIVISION OPERATIONS MANAGER Release to patient->Immediate IS THE PATIENT REQUIRED TO BE FASTING FOR 12 HOURS?->No us Kev Moser MD CHEMISTRY ORDERABLES Final Result Performing Organization Address City/[facility]/ZIP Co de Phone Number [facility] Cancer Care [address] [address], [place] [phone] * (ABNORMAL) FERRITIN (03/10/2024 11:00 AM DIVISION OPERATIONS MANAGER) Ferritin 361(H) 24 - 336 ng/mL [facility] Blood 03/10/2024 11:0 0 AM DIVISION OPERATIONS MANAGER Narrative [facility] - 03/11/2024 2:49 PM DIVISION OPERATIONS MANAGER Release to patient->Immediate us Kev Moser MD CHEMISTRY ORDERABLES Final Result Performing Organization Address [facility] de Phone Number CANCER [employer] [facility] [address] [address], [place] [phone] * (ABNORMAL) CMP (COMPREHENSIVE METABOLIC PANEL) (03/10/2024 11:00 AM DIVISION OPERATIONS MANAGER) Glucose 64(L) 70 - 105 mg/dL [facility] Blood Urea Nitrogen 35(H) 7 - 25 mg/dL [facility] Creatinine 2.4(H) 0.7 - 1.3 mg/dL [facility] Sodium 140 136 - 145 mEq/L [facility] Potassium 4.6 3.5 - 5.1 mEq/L [facility] Chloride 104 98 - 107 mEq/L [facility] Bicarbonate 24 21 - 31 mEq/L [facility] Total Bilirubin 0.8 0.3 - 1.0 mg/dL [facility] Alk. Phosphatase 84 34 - 104 U/L [facility] Aspartate Aminotransferase 10(L) 13 - 39 U/L [facility] Alanine Aminotransferase 10 7 - 52 U/L [facility] Total Protein 6.5 6.4 - 8.9 g/dL [facility] [employer] [facility] Albumin 4.3 3.5 - 5.7 g/dL [facility] [employer] [facility] Calcium 8.7 8.6 - 10.3 mg/dL [facility] [employer] [facility] Anion Gap 16.6(H) 7.0 - 15.0 mEq/L [facility] [employer] [facility] Globulin 2.2 2.0 - 3.5 g/dL [facility] [employer] [facility] EGFR 28(L) >60 ml/min/1. 73m2 [facility] [employer] [facility] Comment: This eGFR is calculated using 2020 CKD-EPI Creatinine equation without race modifier based on the NKF-ASN task force recommendations Blood 03/10/2024 11:0 0 AM DIVISION OPERATIONS MANAGER Narrative [facility] [employer] [facility] - 03/10/2024 12:06 PM DIVISION OPERATIONS MANAGER Release to patient->Immediate IS THE PATIENT REQUIRED TO BE FASTING FOR 8 HOURS?->No Kev Moser MD CHEMISTRY ORDERABLES Final Result [facility]ER [employer] [facility] [address] [place] [address], from Last 3 Months Insurance MEDICARE Member Subscriber Plan / Payer (Ef fective 2019-Present) Name:Britton Nielsen Member ID:[id number] Relation to Subscriber:Self Name:Britton Nielsen Subscriber ID:[id number] Payer ID:[id number] Group ID:Not on file Type:Not on file Address: [facility] [address] [facility] [employer] [facility] [place] [address] MEDICARE [facility] Care Teams Solution Manager Relationship Specialty Start Date End Date Scott Oneill MD PCP - General Internal Medicine 04/29/17 Tavo Mishra MD [address] [address] Internal Medicine 04/29/17 Kev Moser MD [address] [place] [phone] Consulting Physician Oncology 02/09/20
--- OUTSIDE RECORDS SUMMARY | 2024-04-28 12:39 | XMS_ITS | Encounter Summary ---
Author Organization [facility] Address [address] [place] [address] Phone Care Team Providers Care Plant Electrical Engineer Name Role Phone Scott Oneill MD Primary Care Provider Tavo Mishra MD Unavailable [phone] Gilmer Barnard MD Unavailable [phone] Kev Moser MD Unavailable [phone] Encounter Details Date Type Department Care Team (Late st Contact Info) Description 11/04/2023 Telephone [facility] [address] [place] [address] Kev Moser MD [address] [place] [phone] Social History Tobacco Use Types Packs/Day [...] on file Legal Sex Male 3:42 PM MOTION PICTURE PHOTOGRAPHER Gender Identity Not on file Sexual Orientation Not on file documented as of this encounter Plan of Treatment Upcoming Encounters Date Type Department Care Team (Late st Contact Info) Description 05/12/2024 11:00 AM MOTION PICTURE PHOTOGRAPHER Lab [facility] [address] [address] Lab, [facility] 05/12/2024 11:15 AM MOTION PICTURE PHOTOGRAPHER Office Visit [facility] [address] [phone] Kev Moser MD [address] [place] [phone] 05/12/2024 11:30 AM MOTION PICTURE PHOTOGRAPHER Clinical Support [facility] [address] [phone] Nurse, [facility] documented as of this encounter Visit Diagnoses Not on filedocumented in this encounter Additional Health Concerns Assessment Noted Time PHQ-9 Depression Total Score: 0 11/25/19 21 11:34 AM CDT documented as of this encounter Care Teams Plant Electrical Engineer Relationship Specialty Start Date End Date Scott Oneill MD PCP - General Internal Medicine 04/29/17 Tavo Mishra MD [address] [address] Internal Medicine 04/29/17 Gilmer Barnard MD [address] [address] Consulting Physician Internal Medicine 08/28/17 4 Kev Moser MD [address] [place] [phone] Consulting Physician Oncology 02/09/20 documented as of this encounter
--- OUTSIDE RECORDS SUMMARY | 2024-04-28 12:40 | XMS_ITS | Data Portability ---
Author Organization [place] [facility], Main Office Address [address] [place] [address] Care Team Providers Care Agent Contract Clerk Name Role Phone LEANN ONEILL Primary Care Provider Assessment No assessment recorded. Plan of Treatment Reminders Order Date Submit Date Provider Last Modified By Organization Details Last Modified Time Details Appointments Establish ed Patient 15 2024 09:45A M Leann Oneill MD Not available Not available Not available Lab PSA, serum or plasma [email or web address], [address] [place] [address], [id number], 12/17/2023 07:51:57 lipid panel, serum [email or web address], [address] [place] [address], [id number], 12/17/2023 07:51:56 testoster one, free + total, serum [email or web address], [address] [place] [address], [id number], 04/22/2024 09:28:14 Referral None recorded. Procedures None recorded. Surgeries None recorded. Imaging None recorded. Medication Orders tadalafil 20 mg tablet 2024 025 [facility], [address] [facility], [place], [address], 04/08/2024 09:47:11 Patient TargetsNo targets recorded. Patient Instructions Encounter Date Encounter Id Patient Instructions Last Modified By Organization Details Last Modified Time 04/08/2023 [id number] Not available 04/08/2023 12:36:21 08/05/2023 [id number] [email or web address] Not available 08/05/2023 12:11:17 12/10/2023 [id number] dementia rating scale-2* Not available 12/10/2023 17:40:46 alcohol misuse* Not available 12/10/2023 17:40:46 depression screening* Not available 12/10/2023 17:40:47 Timed Up and Go test (TUG)* Not available 12/10/2023 17:40:46 multi-dimensiona l health assessment questionnaire* Not available 12/10/2023 17:40:47 advance care planning: care instructions Not available 12/10/2023 17:40:46 advance directiv es: care instructions Not available 12/10/2023 17:40:47 [place] Advance Directives Not available 12/10/2023 17:40:47 Personalized Health Plan and Screening Recommendations Advance Directives - Do you have one? You have indicated that you are capable of preparing your advance care directive Advance Directives - Do we have your advance directive on file in your health record? Primary Prevention/Interven tion (prevents or decreases the chance of common diseases from occurring) Smoking Risk: Non Smoker Alcohol Misuse Screening: Negative Weight: Appropriate Overwei ght continue your current weight loss efforts try to lose 5% of your body weight try to lose 10% of your body weight try to lose 15% of your body weight Physical activity: minimum of 10-20 minutes of activity that causes mild breathlessness/day Nutrition: Good Average Refer to attached handout Heart-Healthy Diet: After Your Visit Fall Risk (screened today): Low Refer to attached handout Preventing Falls: After your Visit Vaccines Pneumococcal: Ordered Recommended today Recommended today, but you have declined No further needed Influenza: Chronic Disease Risks Stroke: Low Risk Intermediate Risk I have no recommendations Act kevin diagnosis, Continue current treatment plan Heart Attack: Low risk Intermediate Risk I have no recommendations Act kevin diagnosis, Continue current treatment plan Clogging of the Arteries: Low risk Intermediate Risk I have no recommendations Act kevin diagnosis, Continue current treatment plan Diabetes: Low Risk Secondary Prevention/Interven tion (detects treatable diseases before they may cause symptoms, disability, or ) Prostate Cancer Screening: Colon Cancer Screening: Colonoscopy Date Screening Last Performed: Eye Disease Screening: Dementia Risk: Low Depression Screening: Negative [email or web address] Not available 12/10/2023 15:25:38 04/08/2024 [id number] Not available 04/08/2024 09:48:43 Reason for Referral None Reported. Results Created Date Observation Date Name Description Value Unit Range Abnormal Flag Note LastModifiedBy Organization Detail LastModifiedTime 04/04/19 24 04/03/2023 CT, angio gram, chest , w/o contr ast No observ ation record ed. Not Available 2023 09:04:11 04/04/19 24 04/03/2023 CT, abdom en + pelvi s, w/o contr ast No observ ation record ed. Not Available 2023 09:04:11 04/09/19 25 10/18/2021 colon oscop y scree radha (PROC ) No observ ation record ed. BARCODE Not Available 2024 11:31:35 Result Notes None recorded. Problems Name Problem SNOMED Code Status Onset Date Resolution Date Notes Provider Name and Address Organization Details Recorded Time Polyp of colon 05279820 Active 2022 Leann Oneill MD [address], [address], [place], [address] , [facility] 3 12:56:21 Acute sinusiti s 50048651 Active 2022 Libra Blas LPN null, [facility] 3 17:08:12 Melena 6560927 Active 2022 Leann Oneill MD [address], [address], [place], [address] , [facility] 3 14:26:40 Blood in urine 97180040 Active 2022 Leann Oneill MD [address], [address], [place], [address] , [facility] 3 14:27:23 Intersti tial lung disease 453839888 Active 2022 Leann Oneill MD [address], [address], [place], [address] , [facility] [employer] [facility] 3 14:32:34 Mass of subcutan eous tissue of toe of left foot 97360123244 576997 Active 2023 He Mccormick DPM [address], [facility] [address], [place], [address] , [facility] [employer] [facility] 4 11:19:16 History of malignan t neoplasm of skin 880722709 Active 2023 He Mccormick DPM [address], [address], [place], [address] , [facility] [employer] [facility] 4 11:19:52 Vasculit is 28469446 Active 2023 Leann Oneill MD [address], [facility] [address], [place], [address] , [facility] [employer] [facility] 4 12:34:40 Sinusiti s 29021215 Active 2023 Rosa Walter MA null, [facility] [employer] [facility] 4 11:15:03 Deep venous thrombos is 240136172 Active 2020 DEVEN Torres null, [facility] 3 12:27:50 Abnormal testoste lizzy 919545285 Active could not afford medicine DEVEN Torres, [facility] 3 12:27:32 Testoste lizzy level below referenc e range 150141279 Completed 202112/06/2022 DEVEN Torres, [facility] 3 12:28:40 External hordeolu m 0825184 Active Not Available [employer] 3 04:52:03 Hearing loss 41147274 Active 2021 Sarah groves RMA null, [facility] 3 12:27:57 Acute sinusiti s 02546243 Completed 202112/06/2022 Libra Blas LPN null, [facility] 3 17:08:12 Backache 817576849 Completed 202012/06/2022 Sarah groves RMA null, [facility] 3 12:27:28 Idiopath ic crescent ic glomerul onephrit is 328426435 Active 2020 Not Available [facility] 3 04:52:03 Osteoart hritis of knee 898125214 Active Not Available [facility] 3 04:52:03 Edema 853909094 Completed 202012/06/2022 Sarah groves RMA null, [facility] 3 12:27:45 Anemia 944446893 Active 2019 Not Available [facility] 3 04:52:03 Eruption 390928266 Completed Not Available [facility] 3 04:52:04 Low back pain 236322182 Completed Not Available [facility] 3 04:52:04 Chest pain 91946660 Completed 202012/06/2022 CHUCK TorresA null, [facility] 3 12:27:25 Otitis externa 2193928 Completed Not Available [facility] 3 04:52:04 Malignan t neoplasm of skin 590021445 Active on lip, no recurren cedr whelan Not Available [facility] 3 04:52:04 Neuropat hy 576426340 Active Sarah groves RMA null, [place] - [facility] 3 12:28:38 Osteoart hritis 507947181 Completed 12/06/2022 Sarah groves RMA null, [facility] 3 12:28:43 Obesity 448513963 Active Not Available [facility] 3 04:52:04 Cough 95687538 Completed 202112/06/2022 Sarah groves RMA null, [place] - [facility] 3 12:27:23 Ulcer of duodenum 31085436 Active 2020 Not Available [facility] 3 04:52:05 Acute upper respirat ory infectio n 31331505 Completed 202112/06/2022 Sarah groves RMA null, [facility] 3 12:27:19 Hyperlip idemia 57209854 Active Not Available [facility] 3 04:52:05 [facility] hyperten mara 92208274 Active Not Available [facility] 3 04:52:05 Otitis media 03990859 Completed Not Available [facility] 3 04:52:05 Sleep apnea 77916350 Active cpap Not Available [facility] 3 04:52:05 Ex-smoke r 8578577 Active quit 2010 Sarah groves RMA null, [place] - [facility] 3 12:27:44 Erectile dysfunct ion 367765504 Active 2021 Sarah groves RMA null, [place] - [facility] 3 12:27:37 Kidney disease 57264759 Active 2020 Sarah groves RMA null, [place] - [facility] 3 12:27:52 Notes:Medical History: Bilat eral hearing loss Rhinitis with postnasal drip Early REM onset Obesity with very severe OSAHS, AHI = 58, 01/28/21, on CPAP c/o IVRC Hypertension Hyperlipidemia CAD Duodenal ulcer Idiopathic crescentic glomerulonephritis Stage 3 CKD ED Bilateral DVT on Eliquis Vit D deficiency Left knee osteoarthritis PAP Mask Use History: ResMed medium AirFit F30i full face mask ResMed large AirFit F20 full face mask Procedure History: 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 Procedures Surgical History Date Name Laterality Status Provider Name and Address Organization Details Recorded Time 4 Medicare Wellness CPT Code, subsequent completed Debbie Sepulveda RN [facility] 12/10/2023 12:53:31 4 Advanced Care Planning completed Debbie Sepulveda RN [facility] 12/10/2023 14:58:54 3 Medicare Wellness CPT Code, subsequent completed Umm Regan RN [facility] 12/06/2022 12:58:58 other completed Not Available [facility] 03/2022 04:43:13 Imaging Results Imaging Date Name Status LastModified by Organiz ation Details LastModified Time 04/03/2023 CT, angiogram, chest, w[email or web address] Information not available 04/09/2023 09:04:11 04/03/2023 CT, abdomen + pelvis, w/o contrast completed Information not available 04/09/2023 09:04:11 10/18/2021 colonoscopy screening (PROC) completed BARCODE Information not available 04/09/2024 11:31:35 Procedure Notes None recorded. Medical Equipment None Reported. Medications Name Sig Start Date Stop Date Status Note LastModified by Organization Details LastModified Time losartan 50 mg tablet TAKE ONE TABLET BY MOUTH ONCE DAILY active Not Available Not Available No t Available amoxicillin 500 mg capsule TAKE 1 CAPSULE BY MOUTH THREE TIMES DAILY FOR 7 DAYS 12/06 completed Not Available Not Available Not Available furosemide 40 mg tablet TAKE 1 TABLET BY MOUTH ONCE DAILY active Not Available Not Available No t Available atorvastati n 40 mg tablet TAKE 1 TABLET BY MOUTH ONCE DAILY active Not Available Not Available No t Available neomycin-po lymyxin-hyd rocort 3.5 mg/mL-10,00 0 unit/mL-1 % ear solution INSTILL 4 DROPS INTO AFFECTED EAR(S) BY OTIC ROUTE 3 TIMES PER DAY active Not Available Not Available No t Available prednisone 10 mg tablet 40mg daily 01/04 completed Not Available Not Available Not Available doxycycline hyclate 100 mg capsule Take 1 capsule twice a day by oral route for 7 days. 02/05 completed Not Available Not Available Not Available atorvastati n 20 mg tablet Take 1 tablet by mouth once daily 03/07 completed Not Available Not Available Not Available labetalol 200 mg tablet TAKE 1 TABLET BY MOUTH TWICE DAILY active Not Available Not Available No t Available triamcinolo ne acetonide 0.5 % topical cream apply bid active Not Available Not Available No t Available benzonatate 200 mg capsule Take 1 capsule 3 times a day PRN by oral route. 2023 active Not Available Not Available Not Avai lable sulfamethox azole 400 mg-trimetho prim 80 mg tablet 09/19 completed Not Available Not Available Not Available valacyclovi r 1 gram tablet TAKE 1 TABLET BY MOUTH THREE TIMES DAILY 03/17 completed Not Available Not Available Not Available hydrocodone 5 mg-acetamin ophen 325 mg tablet TAKE 1 TABLET BY MOUTH EVERY 6 HOURS NEEDED FOR PAIN 03/07 completed Not Available Not Available Not Available lisinopril 20 mg tablet TAKE 1 TABLET BY MOUTH ONCE DAILY 12/06 completed Not Available Not Available Not Available ondansetron HCl 4 mg tablet 10/23 completed Not Available Not Available Not Available Medrol (Fantasma) 4 mg tablets in a dose pack take as directed on prepackag ed rx 2023 active Not Available Not Available Not Avai lable prednisone 20 mg tablet TAKE 2 TABLETS BY MOUTH ONCE DAILY 08/03 completed Not Available Not Available Not Available prednisone 5 mg tablet TAKE 1 & 1 2 (ONE & ONE HALF) TABLETS BY MOUTH ONCE DAILY 01/04 completed Not Available Not Available Not Available Zithromax Z-Fantasma 250 mg tablet TAKE 2 TABLETS (500 MG) BY ORAL ROUTE ONCE DAILY FOR 1 DAY THEN 1 TABLET (250 MG) BY ORAL ROUTE ONCE DAILY FOR 4 DAYS 04/08 completed Not Available Not Available Not Available clindamycin HCl 150 mg capsule TAKE FOUR CAPSULES BY MOUTH ONE HOUR BEFORE APPOINTME NT 12/07 completed Not Available Not Available Not Available azathioprin e 50 mg tablet TAKE 4 TABLETS BY MOUTH ONCE DAILY 03/17 completed Not Available Not Available Not Available omeprazole 40 mg capsule,del ayed release 05/28 completed Not Available Not Available Not Available aspirin 81 mg tablet,thaddeus yed release Take 1 tablet every day by oral route. active Not Available Not Available No t Available tramadol 50 mg tablet TAKE 1 TABLET BY MOUTH TWICE DAILY NEEDED FOR 30 DAYS 2023 active Last fill MELISSA Not Available Not Available Not Available triamcinolo ne acetonide 0.1 % topical cream APPLY A THIN LAYER TOPICALLY TO AFFECTED AREA(S) TWICE DAILY active Not Available Not Available No t Available oxycodone-a cetaminophe n 5 mg-325 mg tablet TAKE 1 TO 2 TABLETS BY MOUTH EVERY 6 HOURS NEEDED 11/21 completed Not Available Not Available Not Available ofloxacin 0.3 % ear drops Instill 5 drops twice a day by otic route. active Not Available Not Available No t Available alprazolam 0.25 mg tablet 05/28 completed Not Available Not Available Not Available potassium chloride ER 20 mEq tablet,exte nded release(par t/cryst) TAKE 1 BY MOUTH TWICE DAILY active Not Available Not Available No t Available sodium bicarbonate 650 mg tablet TAKE 1 TABLET BY MOUTH TWICE DAILY active Not Available Not Available No t Available amlodipine 10 mg tablet 05/28 completed Not Available Not Available Not Available doxycycline monohydrate 100 mg capsule TAKE 1 CAPSULE BY MOUTH TWICE DAILY FOR 7 DAYS 12/06 completed Not Available Not Available Not Available cephalexin 500 mg capsule TAKE 1 CAPSULE BY MOUTH 4 TIMES DAILY 12/07 completed Not Available Not Available Not Available pantoprazol e 40 mg tablet,thaddeus yed release TAKE 1 TABLET BY MOUTH ONCE DAILY active Not Available Not Available No t Available CellCept 500 mg tablet Take 1 tablet twice a day by oral route. active Not Available Not Available No t Available gabapentin 300 mg capsule TAKE 1 CAPSULE BY MOUTH THREE TIMES DAILY DIRECTED FOR 30 DAYS 12/13 completed Not Available Not Available Not Available diclofenac sodium 75 mg tablet,thaddeus yed release TAKE ONE TABLET BY MOUTH EVERY 12 HOURS NEEDED 05/29 completed Not Available Not Available Not Available montelukast 10 mg tablet Take 1 tablet every day by oral route. 03/17 completed Not Available Not Available Not Available hydrocodone 5 mg-acetamin ophen 500 mg tablet 03/15 completed Not Available Not Available Not Available codeine 10 mg-guaifene sin 100 mg/5 mL oral liquid TAKE 5 ML (CC) BY MOUTH EVERY 6 HOURS NEEDED 12/06 completed Not Available Not Available Not Available ergocalcife rol (vitamin D2) 1,250 mcg (50,000 unit) capsule TAKE 1 CAPSULE BY MOUTH ONCE A WEEK active Not Available Not Available No t Available irbesartan 150 mg tablet Take 1 tablet every day by oral route. active Not Available Not Available No t Available triamcinolo ne acetonide 0.1 % lotion APPLY A THIN LAYER TO THE AFFECTED AREA(S) BY TOPICAL ROUTE 2 TIMES PER DAY 05/28 completed Not Available Not Available Not Available labetalol 100 mg tablet 05/28 completed Not Available Not Available Not Available albuterol sulfate HFA 90 mcg/actuati on aerosol inhaler INHALE 1 PUFF BY MOUTH 4 TIMES DAILY 12/06 completed Not Available Not Available Not Available ondansetron 4 mg disintegrat ing tablet 08/03 completed Not Available Not Available Not Available losartan 100 mg tablet TAKE ONE TABLET BY MOUTH ONCE DAILY 05/28 completed Not Available Not Available Not Available fluticasone propionate 50 mcg/actuati on nasal spray,suspe nsion [place] 2 sprays every day by intranasa l route. 03/17 completed Not Available Not Available Not Available amoxicillin 875 mg-potassiu m clavulanate 125 mg tablet TAKE 1 TABLET BY MOUTH EVERY 12 HOURS FOR 7 DAYS 08/03 completed Not Available Not Available Not Available Vitamin B-12 1,000 mcg tablet 03/17 completed Not Available Not Available Not Available Vitamin D 50,000 unit capsule Take 1 capsule every week by oral route. 09/19 completed Not Available Not Available Not Available ezetimibe 10 mg tablet Take 1 tablet every day by oral route. 04/08 completed Not Available Not Available Not Available cyclobenzap rine 5 mg tablet 10/29 completed Not Available Not Available Not Available iron 325 mg (65 mg iron) tablet Take 1 tablet every day by oral route. 09/19 completed Not Available Not Available Not Available tadalafil 20 mg tablet TAKE 1 TABLET BY MOUTH ONCE DAILY NEEDED 2024 active Not Available Not Available Not Avai lable Vytorin 10 mg-20 mg tablet Take 1 tab by mouth qd 07/12 completed Not Available Not Available Not Available pregabalin 50 mg capsule TAKE 1 CAPSULE BY MOUTH THREE TIMES DAILY 2023 active Not Available Not Available Not Avai lable Calcium 600 + D(3) 03/17 completed Not Available Not Available Not Available sevelamer carbonate 800 mg tablet 05/28 completed Not Available Not Available Not Available Androderm 2 mg/24 hour transdermal 24 hour patch 03/15 completed Not Available Not Available Not Available Eliquis 5 mg tablet Take 1 tablet twice a day by oral route. 2020 active Not Available Not Available Not Avai lable potassium chloride ER 20 mEq tablet,exte nded release Take 1 tablet twice a day by oral route for 20 days. 09/19 completed Not Available Not Available Not Available cyclophosph amide 50 mg capsule Take 2 capsules every day by oral route for 30 days. 09/19 completed Not Available Not Available Not Available Sutab 1.479-0.188 -0.225 gram tablet TAKE 12 TABLETS BY MOUTH DAILY FOR 2 DAYS, TAKE MEDICATIO NS AT SPECIFIED TIMES PER GI CLINIC INSTRUCTI ONS 02/05 completed Not Available Not Available Not Available Vitals Date Recorded Body height Body mass index (BMI) Body weight Oxygen saturation Oxygen saturation in Arterial blood by Pulse oximetry Heart rate Body temperature Systolic blood pressure Diastolic blood pressure Provider Name and Address Organization Details Last Updated DateTime 4 165.1 cm 37.8 kg/m2 720904. 47 g 95 % 95 % 60 /min 97.9 [degF] 122 mm[Hg] 70 mm[Hg] Roxana Browning CMA [place] [facility] 4 12:03:25 Date Recorded Body height Body mass index (BMI) Body weight Heart rate Respiratory rate Oxygen saturation Oxygen saturation in Arterial blood by Pulse oximetry Provider Name and Address Organization Details Last Updated DateTime 4 165.1 cm 37.8 kg/m2 196320. 47 g 87 /min 14 /min 98 % 98 % Wen Frank [employer] [facility] 4 09:57:22 Date Recorded Body height Body mass index (BMI) Body weight Body temperature Heart rate Oxygen saturation Oxygen saturation in Arterial blood by Pulse oximetry Systolic blood pressure Diastolic blood pressure Provider Name and Address Organization Details Last Updated DateTime 4 165.1 cm 38.9 kg/m2 562938. 61 g 97.9 [degF] 86 /min 98 % 98 % 140 mm[Hg] 82 mm[Hg] Janey Ulrich CMA [place] [facility] 4 12:11:24 Date Recorded Body height Body mass index (BMI) Body weight Body temperature Heart rate Oxygen saturation Oxygen saturation in Arterial blood by Pulse oximetry Systolic blood pressure Diastolic blood pressure Provider Name and Address Organization Details Last Updated DateTime 4 165.1 cm 39.1 kg/m2 711584. 21 g 97.7 [degF] 73 /min 96 % 96 % 140 mm[Hg] 60 mm[Hg] DEVEN Salgado [place] [facility] 4 11:56:23 Date Recorded Body weight Body temperature Oxygen saturation Oxygen saturation in Arterial blood by Pulse oximetry Heart rate Systolic blood pressure Diastolic blood pressure Provider Name and Address Organization Details Last Updated DateTime 5 947127. 61 g 97.4 [degF] 94 % 94 % 88 /min 138 mm[Hg] 62 mm[Hg] Marga hamilton [employer] [facility] 5 09:18:42 Social History Question Answer Notes LastModified by Organization Details LastModified Time Tobacco Smoking Status Former Smoker Quit in 2003 Debbie Sepulveda RN [facility], [place] [facility] 12/10/2023 12:57:32 Do You Have An Advance Directive? No Paperwork Given 12/10/2023 [email or web address] Information not available 12/10/2023 What Is Your Level Of Alcohol Consumption? None [email or web address] Information not available 12/10/2023 Are You Blind Or Do You Have Difficulty Seeing? No [email or web address] [id number] Information not available 05/29/2022 Is Blood Transfusion Acceptable In An Emergency? Yes [email or web address] Information not available 12/10/2023 What Is Your Level Of Caffeine Consumption? Occasional [id number] Information not available 05/29/2022 How Much Tobacco Do You Chew? None [email or web address] [id number] Information not available 05/29/2022 In The 14 Days Before Symptom Onset, Have You Had Close Contact With A Laboratory-conf irmed COVID-19 While That Case Was Ill? No Not Applicable [email or web address] Information not available 12/10/2023 In The 14 Days Before Symptom Onset, Have You Had Close Contact With A Person Who Is Under Investigation For COVID-19 While That Person Was Ill? No Not Applicable [email or web address] Information not available 12/10/2023 Are You Currently Employed? No [email or web address] Information not available 12/10/2023 Are You Deaf Or Do You Have Serious Difficulty Hearing? Yes Bilateral Hearing Aids [email or web address] Information not available 12/10/2023 What Type Of Diet Are You Following? REGULAR [email or web address].[id number] Information not available 05/29/2022 Which Illicit Or Recreational Drugs Have You Used? None [email or web address] [id number] Information not available 05/29/2022 What Is The Highest Grade Or Level Of School You Have Completed Or The Highest Degree You Have Received? [id number] [email or web address] Information not available 12/10/2023 Do You Have An Electrostatic Air Filter? 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 0 [email or web address] Information not available 12/10/2023 Have There Been Any Changes To Your Family Or Social Situation? No [id number] Information not available 05/29/2022 What Is The Fluoride Status Of Your Home? Fluoridated [email or web address].[id number] Information not available 05/29/2022 When Did You Quit Smoking? 16+yearssincelastc igarette [email or web address] Information not available 12/10/2023 Are There Any Guns Present In Your Home? Yes [email or web address] [id number] Information not available 05/29/2022 Do You Have A Humidifier? No On The Cpap Machine [email or web address] [id number] Information not available 05/29/2022 Do You Use Insect Repellent Routinely? No [email or web address] Information not available 12/10/2023 Where Do You Live? [place] MIGRATION.0301 [id number] Information not available 05/29/2022 Presence Of Domestic Violence No [email or web address] Information not available 12/06/2022 Are You Able To Care For Yourself? Yes [email or web address] Information not available 12/06/2022 Are You Blind Or Do Yo Have Difficulty Seeing? No [email or web address] Information not available 12/06/2022 Are You Deaf Or Do You Have Serious Difficulty Hearing? No [email or web address] Information not available 12/06/2022 General Stress Level? Moderate [email or web address] Information not available 12/10/2023 Live Alone Of With Others? With Others [email or web address] Information not available 12/06/2022 Do You Have A Medical Power Of Hoop Maker? No [email or web address] Information not available 12/10/2023 Do You Have Moisture Problems In Your Home? No MIGRATION.0301 [id number] Information not available 05/29/2022 What Was The Date Of Your Most Recent Tobacco Screening? 12/10/2023 [email or web address] Information not available 12/10/2023 How Many Children Do You Have? 4 [email or web address] Information not available 12/10/2023 What Is Your Current Pack Years? [email or web address] Information not available 12/10/2023 Do You Have Any Pets? Yes MIGRATION.0301 [id number] Information not available 05/29/2022 Do You Use Protection During Sex? No [email or web address] Information not available 12/10/2023 What Is Your Relationship Status? [email or web address] Information not available 12/10/2023 Do You Use Your Seat Belt Or Car Seat Routinely? Yes MIGRATION.0301 [id number] Information not available 05/29/2022 Are You Sexually Active? Yes [email or web address] Information not available 12/10/2023 Do You Have Smoke And Carbon Monoxide Detectors In Your Home? Yes MIGRATION.0301 593731 Information not available 05/29/2022 At What Age Did You Start Smoking Tobacco? 18 MIGRATION.0301 424143 Information not available 05/29/2022 Are You Passively Exposed To Smoke? No MIGRATION.0301 788714 Information not available 05/29/2022 Are There Any Smokers In Your House? No MIGRATION.0301 179644 Information not available 05/29/2022 How Much Tobacco Do You Smoke? 1 PPD MIGRATION.0301 381947 Information not available 05/29/2022 What Types Of Sporting Activities Do You Participate In? None [email or web address] Information not available 12/10/2023 Do You Feel Stressed (tense, Restless, Nervous, Or Anxious, Or Unable To Sleep At Night)? [id number] [email or web address] Information not available 12/10/2023 Do You Use Any Illicit Or Recreational Drugs? No MIGRATION.0301 556713 Information not available 05/29/2022 Do You Use Sunscreen Routinely? No MIGRATION.0301 452318 Information not available 05/29/2022 Has Tobacco Cessation Counseling Been Provided? No [email or web address] Information not available 12/10/2023 How Many Years Have You Smoked Tobacco? 30 [email or web address] Information not available 12/10/2023 Have You Recently Traveled Abroad? No MIGRATION.0301 259215 Information not available 05/29/2022 Do You Have Any Dietary Restrictions? No MIGRATION.0301 315553 Information not available 05/29/2022 Do You Or Have You Ever Used Any Other Forms Of Tobacco Or Nicotine? No MIGRATION.0301 040607 Information not available 05/29/2022 Sex: Male Functional Status Question Answer Note LastModified by Managed by Q Details LastModified Time Do you have difficulty walking or climbing stairs? No MIGRATION.7390701 026 Information not available 05/29/2022 Do you have transportation difficulties? No MIGRATION.4487747 026 Information not available 05/29/2022 Are you able to walk? YESWOREST MIGRATION.3219668 026 Information not available 05/29/2022 Do you have difficulty doing errands alone? No MIGRATION.1325348 026 Information not available 05/29/2022 Are you able to care for yourself? Yes MIGRATION.8080670 026 Information not available 05/29/2022 Do you have difficulty dressing or bathing? No MIGRATION.5669757 026 Information not available 05/29/2022 What is your exercise level? None MIGRATION.5454443 026 Information not available 05/29/2022 Mental Status Question Answer Note LastModified by Managed by Q Details LastModified Time Do you have difficulty concentrating, remembering or making decisions? No MIGRATION.[id number] 6 Information not available 05/29/2022 Family History Relationship Description Onset Age of this Age Resolved Age Notes LastModified by Organization Details LastModified Time Father Essential hypertension MIGRATION.333 [id number] Not available 05/29/2022 04:43:16 Sister Diabetes mellitus MIGRATION.056 [id number] Not available 05/29/2022 04:43:16 Brother Small cell carcinoma of lung 59 MIGRATION.847 [id number] Not available 05/29/2022 04:43:16 Medical History Condition Response HIGH CHOLESTEROL / HYPERLIPIDEMIA Y HYPERTENSION Y Immunizations Vaccine Type Date Status Note Provider Nam e and Address Organization Details Recorded Time COVID-19, mRNA, LNP-S, PF, 100 mcg/0.5mL dose or 50 mcg/0.25mL dose 1 completed Not Available [facility] 05/29/2022 05:05:37 COVID-19, mRNA, LNP-S, PF, 100 mcg/0.5mL dose or 50 mcg/0.25mL dose 1 completed Not Available [facility] 05/29/2022 05:05:38 Influenza, split virus, quadrivalent, preservative 1 completed Not Available [facility] 05/29/2022 05:05:38 Influenza, split virus, quadrivalent, PF 9 completed Not Available [facility] 05/29/2022 05:05:38 Influenza, high-dose, trivalent, PF 8 completed Not Available [facility] 05/29/2022 05:05:38 Influenza, split virus, trivalent, PF 4 completed Not Available [facility] 05/29/2022 05:05:38 Past Encounters Encounter ID Performer Location Encounter Start Date Encounter Closed Date Diagnosis/Indication Diagnosis SNOMED-CT Code Diagnosis ICD10 Code Diagnosis Note [id number] [facility] [address] [facility] [place] [address] 07/25/2020 00:00:00 07/25/2020 10:30:24 [id number] [facility] [address] [facility] [place] [address] 11/21/2020 00:00:00 11/21/2020 11:24:02 [id number] [facility] Pulmonolo gy [address] [address] 12/07/2020 00:00:00 12/07/2020 08:29:49 [id number] [facility] [address] [place] [address] 02/01/2021 00:00:00 02/01/2021 09:16:01 [id number] [facility] [address] [facility] [place] [address] 03/07/2021 00:00:00 03/07/2021 11:59:20 [id number] [facility] [address] [facility] [place] [address] 07/06/2021 00:00:00 07/06/2021 13:14:02 [id number] [facility] [address] [place] [address] 02/05/2022 00:00:00 02/05/2022 11:31:08 [id number] Leann Oneill MD [facility] Internal Med [address] [place] [address] 12/06/2022 11:40:07 12/06/2022 13:05:12 Essential hypertension 20891984 I10 watch Hyperlipidemia 17662073 E78.5 labs Obesity 052319873 E66.9 advised to lose more Osteoarthr itis of knee 428048399 M17.9 otc Anemia 657080657 D64.9 stable Ex-smoker 8056683 Z87.89 1 Deep venou s thrombosis 634676355 I82.409 on MEDS FOR LIFE Abnormal testosterone 13 0417681 R94.7 Kidney disease 25818432 N08 seeing nephrology Sleep apnea 83603308 G47 .33 cpap Neuropathy 695947750 G62 .9 start pregabalin Adult heal th examination 580367134 Z00.00 repeat colonoscop y, scheduled soon due to polyppsa- 02/17FLU- 1COV ID Vacc- Has had all 3 vacc Screening for malignant neoplasm of prostate 128459519 Z12.5 Polyp of colon 99325343 K63.5 gets colonoscop y every year Screening for disorder 801571810 Z13.9 [id number] Leann Oneill MD [facility] Internal Med [facility] [address] [facility] [place] [address] 02/17/2023 14:01:56 02/17/2023 14:36:53 Melena [id number] K92.1 improved Blood in urine 40092568 R31.9 to get cysto Kidney disease 98316002 N08 seen nephrology , cr now baseline Interstiti al lung disease 590666613 J84.9 he has appt to f/u with pulm, no symptoms [id number] Leann Oneill MD [facility] [address] [place] [address] 04/08/2023 11:53:16 04/08/2023 12:38:50 Essential hypertension 14299423 I10 under control Hyperlipidemia 61039607 E78.5 will get labs reports Obesity 771260429 E66.9 advised to lose Osteoarthr itis of knee 032783978 M17.9 otc Anemia 851231405 D64.9 stable Ex-smoker 4133656 Z87.89 1 Deep venou s thrombosis 968000412 I82.409 on MEDS FOR LIFE Abnormal testosterone 13 8403735 R94.7 get labs reports Kidney disease 85107496 N08 seeing nephrology Sleep apnea 40706994 G47 .33 cpap Neuropathy 891800849 G62 .9 pregabalin helps Adult heal th examination 013683148 Z00.00 repeat colonoscop y, scheduled soon due to polyppsa- 2022FLU- 1COV ID Vacc- Has had all 3 vacc Polyp of colon 03818474 K63.5 gets colonoscop y every year [id number] He Mccormick DPM [facility] [place] [address] [facility] [place] [address] 05/27/2023 09:54:02 05/27/2023 16:57:06 Mass of subcutaneous tissue of toe of left foot 4507931013 0911464 R22.42 left great toefollow up with pcp or oncologyre fused surgery where I have privileges recommend immediate follow up History of malignant neoplasm of skin 099901064 Z85.828 squamous cell on lip [id number] Leann Oneill MD [facility] [address] [place] [address] 08/05/2023 12:06:26 08/05/2023 12:39:57 Essential hypertension 74392648 I10 under control Hyperlipidemia 36586016 E78.5 under control Obesity 303581510 E66.9 advised to lose Osteoarthr itis of knee 274029389 M17.9 otc Anemia 142133322 D64.9 stable Ex-smoker 1148029 Z87.89 1 Deep venou s thrombosis 446447755 I82.409 meds for life Abnormal testosterone 13 2336620 R94.7 get labs reports Kidney disease 53416416 N08 seeing nephrology Sleep apnea 65169782 G47 .33 cpap Neuropathy 954288262 G62 .9 pregabalin helps Adult heal th examination 853692004 Z00.00 repeat colonoscop y, scheduled soon due to polyppsa- 1COV ID Vacc- Has had all 3 vacc Polyp of colon 43088491 K63.5 gets colonoscop y Interstiti al lung disease 588959299 J84.9 autoimmune , on meds, seeing pulm at [place] Vasculitis 46695618 I77. 6 on cytoxan [id number] Leann Oneill MD [facility] [address] [place] [address] 12/10/2023 11:50:33 12/10/2023 13:11:37 Essential hypertension 88946150 I10 watch Hyperlipidemia 87717156 E78.5 under control Obesity 234636802 E66.9 advised to lose Osteoarthr itis of knee 346652208 M17.9 otc Anemia 108643844 D64.9 stable Ex-smoker 1090121 Z87.89 1 Deep venou s thrombosis 065785358 I82.409 meds for life, Eliquis Abnormal testosterone 13 7531874 R94.7 Kidney disease 68747426 N08 seeing nephrology Sleep apnea 97845894 G47 .33 cpap Neuropathy 267977467 G62 .9 pregabalin helps some Adult heal th examination 786325831 Z00.00 repeat colonoscop y,PSA- 2022FLU- 1COV ID Vacc- Has had all 3 vacc Polyp of colon 34466802 K63.5 needs colonoscop y , not sure when Interstiti al lung disease 181548178 J84.9 autoimmune , on meds, seeing pulm at [place] Vasculitis 20335906 I77. 6 on cytoxan Screening for malignant neoplasm of prostate 818740243 Z12.5 Screening for disorder 244821964 Z13.9 [id number] Leann Oneill MD [facility] [address] [place] [address] 04/08/2024 09:06:19 04/08/2024 09:55:47 Essential hypertension 69029327 I10 under control Hyperlipidemia 57188887 E78.5 under control Obesity 064248999 E66.9 advised to lose Osteoarthr itis of knee 274729109 M17.9 otc Anemia 881943019 D64.9 stable Ex-smoker 2674532 Z87.89 1 Deep venou s thrombosis 501949662 I82.409 meds for life, Eliquis Abnormal testosterone 13 4007780 R94.7 Kidney disease 68240416 N08 seeing nephrology Sleep apnea 20372089 G47 .33 cpap Neuropathy 007567968 G62 .9 pregabalin helps Adult heal th examination 419147701 Z00.00 colonoscop y 2022 per [facility]- 4COV ID Vacc- Has had all 3 vacc Polyp of colon 99027885 K63.5 needs colonoscop y , Interstiti al lung disease 146855346 J84.9 autoimmune , on meds, seeing pulm at [place] Vasculitis 92622197 I77. 6 on cytoxan Erectile dysfunction 860 369285 F52.21 Health Concerns Section Related Observation LastModified by Organization Detai ls LastModified Time None Recorded Concern Status LastModified by Organization Details LastModified Time None Recorded Advance Directives Directive N: paperwork given 12/10/2023 Payers Encounter Date Sequence Insurance Name Policy Number Policy Virk Covered Member ID Virk Member ID Guarantor Name 04/08/2023 1 [place] Britton Nielsen Sr [id number] Britton Nielsen 04/08/2023 2 [employer] (MEDICARE SUPPLEMENT) Britton Nielsen [id number] Britton Nielsen 05/27/2023 1 [place] Britton R Morales Sr [id number] Britton R Denbo 05/27/2023 2 [employer] (MEDICARE SUPPLEMENT) Britton Hamilton Denbo [id number] Britton R Morales 08/05/2023 1 [place] Britton R Morales Sr [id number] Britton R Denbo 08/05/2023 2 [employer] (MEDICARE SUPPLEMENT) Britton R Denbo [id number] Britton R Morales 12/10/2023 1 [place] Britton R Denbo Sr [id number] Britton R Morales 12/10/2023 2 [employer] (MEDICARE SUPPLEMENT) Britton R Morales [id number] Britton R Denbo 04/08/2024 1 [place] Britton R Morales Sr [id number] Britton R Denbo 04/08/2024 2 [employer] (MEDICARE SUPPLEMENT) Britton R Denbo [id number] Britton R Denbo Notes Date Note Type Note Provider Name and Address Organization Details Recorded Time 04/08/2023 text/html Here today for routine f/u, compliant to meds HEARING LOSS- USING HEARING AIDS CAD- triple by-pass surgery, 06/18, on asa HTN- under controlMeds- labetalol 200 mg bid, Irbesartan 150mg daily, Hyperlipidemia- under good control, watching diet , labs done in 12/21, no reportsMed- Atorvastatin 20 mg qd Obesity- watching diet and has gained some Edema- on Furosemide, comes and goes, wearing compression hose and betterMeds- furosemide 40 mg qd Arthritis- Back Sleep apnea - compliant to cpap Neuropathy- - not on gabapentin (caused swelling) mostly numbness on the feet , tingling mostly at night , STARTED ION PREGABLIN AND HELPSMeds- tramadol 50mg, Pregablin Testosterone levels were low, has taken patches in the past, last labs nl skin cancer on the lower lip s/p resection, no recurrence Glomerulonephritis /Renal failure- seeing nephrology, on prednisone, has glomerulonephritis , dr Barnard, GFR 30 Anemia- iron def, bone marrow biopsy neg H/o pancytopenia- seeing oncology, was on meds for bone marrow stimulation H/O ED- Tadalafil helpsMeds- tadalafil 20 mg qd prn DVT- on Eliquis since 11/15 for lifeMeds- Eliquis 5 mg bid HX- bleeding Ulcers / Anemia- sees Dr. Kev Moser. , no more symptoms Ex-smoker- used smoke 2 ppd, for yrs Back pain, thoracic area, xrays showed mild arthritis Leann Oneill MD [address], [place], [address], [employer] 04/08/2023 12:38:32 05/27/2023 text/html Patient is a 68-year-old male who presents for complaints of a soft tissue mass to the dorsal left right toe. Patient states that the mass has been present for over a year. Patient states that it is slowly gotten bigger and become tender. Patient states that at one point he did put a foreign object into the area in released fluid and it still has the open areas which at the areas of opening has dark tissue, which is concerning for a melanoma. I did explain that the patient needs to have immediate removal and biopsy of this lesion. Patient states that he will seek options with his oncologist as he does not want to go to the hospital that I have credentials. I did explain the severity of soft tissue cancer and he understands in all of obtain a visit with his oncologist. Patient states he has not shown this to his oncologist. 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 Patient denies any other complaints. He Mccormick DPM [address], [place], [address], [employer] 05/27/2023 13:49:37 08/05/2023 text/html Here today for routine f/u, compliant to medsHEARING LOSS- USING HEARING AIDS CAD- triple by-pass surgery, 06/18, on asa HTN- under controlMeds- Labetalol 200 mg bid, Irbesartan 150mg daily, Hyperlipidemia- under good control, watching diet , labs done in 12/21, no reportsMed- Atorvastatin 20 mg qd Obesity- not watching diet and has gained some Edema- on Furosemide, comes and goes, wearing compression hoseMeds- Furosemide 40 mg qd Arthritis- mostly spine Sleep apnea - compliant to cpapNeuropathy- - not on gabapentin (caused swelling) mostly numbness on the feet , tingling mostly at night ,Meds- Tramadol 50mg, Pregabalin 50mg TID Testosterone levels were low, has taken patches in the past, last labs nl skin cancer on the lower lip s/p resection, no recurrence Glomerulonephritis /Renal failure- seeing nephrology, on prednisone, has glomerulonephritis , dr Barnard, GFR 30 Lower back pain, Has been seeing Pulmonology and was diagnosed with an autoimmune disease, seeing a bone specialist Anemia- iron def, bone marrow biopsy neg H/o pancytopenia- seeing oncology, was on meds for bone marrow stimulation H/O ED- Tadalafil helpsMeds- tadalafil 20 mg qd prn DVT- on Eliquis since 11/15 for lifeMeds- Eliquis 5 mg bid HX- bleeding Ulcers / Anemia- sees Dr. Kev Moser. 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, started on meds Leann Oneill MD [address] [facility] [facility] [address], [place], [address], [place] [employer] 08/05/2023 12:38:15 12/10/2023 text/html Here today for routine f/u, compliant to meds HEARING LOSS- USING HEARING AIDS CAD- triple by-pass surgery, 06/18, on asa HTN- under controlMeds- Labetalol 200 mg bid, Irbesartan 150mg daily, Hyperlipidemia- under good control, watching diet , labs done in 12/21,Med- Atorvastatin 20 mg qd Obesity- not watching diet and has gained 1 lb Edema- on Furosemide, comes and goes, wearing compression hoseMeds- Furosemide 40 mg qd Arthritis- mostly spine Sleep apnea - compliant to cpapNeuropathy- - not on gabapentin (caused swelling) mostly numbness on the feet , tingling mostly at nightMeds- Tramadol 50mg, Pregabalin 50mg TID Testosterone levels were low, has taken patches in the past, last labs nl skin cancer on the lower lip s/p resection, no recurrence Glomerulonephritis /Renal failure- seeing nephrology, on prednisone, has glomerulonephritis , dr Barnard, GFR 30 ILD/Vasculitis- autoimmune seen pulm, started on medsLeft lower leg is more swollen than the right. using o2 as needed and with cpap Anemia- iron def, bone marrow biopsy neg, Hb was 11.4 H/o pancytopenia- seeing oncology, on meds for bone marrow stimulation H/O ED- Tadalafil helpsMeds- tadalafil 20 mg qd prn DVT- on Eliquis since 11/15 for lifeMeds- Eliquis 5 mg bid HX- bleeding Ulcers / Anemia- sees Dr. Kev Moser. , no more symptoms Ex-smoker- used smoke 2 ppd, for yrs Back pain, thoracic area, xrays showed mild arthritis Leann Oneill MD [address] [facility], [place], [address], [place] [facility] [employer] 12/10/2023 17:41:09 04/08/2024 text/html Here today for routine 4 month f/u,pt is not fasting (medicare) HEARING LOSS- USING HEARING AIDS CAD- triple by-pass surgery, 06/18, on asa, no symptoms HTN- under controlMeds- Labetalol 200 mg bid, Irbesartan 150mg daily, Hyperlipidemia- under good control, watching diet , labs done in 12/21,Med- Atorvastatin 20 mg qd Obesity- not watching diet and has gained 1 lb Edema- on Furosemide, comes and goes, wearing compression hoseMeds- Furosemide 40 mg qd Arthritis- mostly spine Sleep apnea - compliant to cpapNeuropathy- - not on gabapentin (caused swelling) mostly numbness on the feet , tingling mostly at nightMeds- Tramadol 50mg, Pregabalin 50mg TID Testosterone levels were low, has taken patches in the past, last labs nl skin cancer on the lower lip s/p resection, no recurrence Glomerulonephritis /Renal failure- seeing nephrology, on prednisone, has glomerulonephritis , dr Barnard, GFR 30 ILD/Vasculitis- autoimmune seen pulm, started on medsLeft lower leg is more swollen than the right. using o2 as needed and with cpap Anemia- iron def, bone marrow biopsy neg, Hb was 11.4 H/o pancytopenia- seeing oncology, on meds for bone marrow stimulation H/O ED- Tadalafil helpsMeds- tadalafil 20 mg qd prn DVT- on Eliquis since 11/15 for lifeMeds- Eliquis 5 mg bid HX- bleeding Ulcers / Anemia- sees Dr. Kev Moser. , no more symptoms Ex-smoker- used smoke 2 ppd, for yrs Back pain, thoracic area, xrays showed mild arthritis Leann Oneill MD [address] [facility], [place], [address], [place] [facility] [employer] 04/08/2024 09:49:23
--- OUTSIDE RECORDS SUMMARY | 2024-04-28 12:40 | XMS_ITS | Encounter Summary ---
Author Organization [facility] Address [address] [place] [address] Phone Care Team Providers Care Assistant Track Coach Name Role Phone Scott Oneill MD Primary Care Provider Kev Prince DO Unavailable [phone] Tavo Mishra MD Unavailable [phone] Gilmer Barnard MD Unavailable [phone] Kev Moser MD Unavailable [phone] Encounter Details Date Type Department Care Team (Late st Contact Info) Description 12/31/2019 Telephone [facility] [address] [address] Kev Moser MD [address] [place] [phone] Social History Tobacco Use Types Packs/Day [...] on file Legal Sex Male 3:42 PM HUNTING GUIDE Gender Identity Not on file Sexual Orientation [...] st Contact Info) Description 05/12/2024 11:00 AM HUNTING GUIDE Lab [facility] [address] [phone] Lab, [facility] 05/12/2024 11:15 AM HUNTING GUIDE Office Visit [facility] [address] [phone] Kev Moser MD [address] [place] [phone] 05/12/2024 11:30 AM HUNTING GUIDE Clinical Support [facility] [address] [address] Nurse, [facility] documented as of this encounter Visit Diagnoses Not on filedocumented in this encounter Additional Health Concerns Assessment Noted Time PHQ-9 Depression Total Score: 0 10/04/19 20 2:45 PM CDT documented as of this encounter Care Teams Assistant Track Coach Relationship Specialty Start Date End Date Scott Oneill MD PCP - General Internal Medicine 04/29/17 Kev Prince DO Gastroenterology 04/29/17 12/09/22 Tavo Mishra MD [address] [place] [id number] Internal Medicine 04/29/17 Gilmer Barnard MD [address] [place] [address] Consulting Physician Internal Medicine 08/28/17 4 Kev Moser MD [address] [place] [phone] Consulting Physician Oncology 02/09/20 documented as of this encounter
--- OUTSIDE RECORDS SUMMARY | 2024-04-28 12:40 | XMS_ITS | Encounter Summary ---
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
--- OUTSIDE RECORDS SUMMARY | 2024-04-28 12:40 | XMS_ITS | Encounter Summary ---
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, 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, 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
--- OUTSIDE RECORDS SUMMARY | 2024-04-28 12:40 | XMS_ITS | Encounter Summary ---
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
--- OUTSIDE RECORDS SUMMARY | 2024-04-28 12:40 | XMS_ITS | CONTINUITY OF CARE DOCUMENT ---
Author Name shabbir hsea Address Unknown Organization [facility] Address [address] [place] [address] [address] [place] [address] Phone [phone] Care Team Providers Care Fabrication Inspector Name Role Phone Carla HAMMOND, Ny Franz Unavailable [phone] Scott Oneill MD Unavailable Scott Oneill MD Unavailable [phone] INSURANCE PROVIDERS Payer name Policy type / Coverage type [place] red libertarian ID [employer] Commercial insura [employer] [id number] [place] Medicare [id number]
--- OUTSIDE RECORDS SUMMARY | 2024-04-28 12:40 | XMS_ITS | Encounter Summary ---
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
--- OUTSIDE RECORDS SUMMARY | 2024-04-28 12:40 | XMS_ITS | Encounter Summary ---
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
--- OUTSIDE RECORDS SUMMARY | 2024-04-28 12:40 | XMS_ITS | Clinical Summary ---
Author Organization [facility] Address [address] [place] [address] Phone Care Team Providers Care Voice Data Communications Engineer Name Role Phone Bia Oneill MD Primary Care Provider [phone] Allergies No known active allergies Medications Medication [...] 03/10/2022 Active ergocalciferol (VITAMIN D2) 1.25 MG (31333 UT) capsule Take 1 capsule by mouth once a week 12 capsule 04/01/2022 Active Active Problems Problem Noted Date Diagnosed Date Deep venous thrombosis 07/25/2020 Mixed hyperlipidemia 05/04/2020 Myelofibrosis 10/22/2017 Chronic kidney disease, Stage IV (severe) 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 Gastrointestinal hemorrhage 05/10/2017 Nephritic syndrome [...] Comments Blood Pressure 128/60 02/27/2022 1:41 PM PROJECT MANAGER/TEAM COACH Pulse 72 02/27/2022 1:41 PM PROJECT MANAGER/TEAM COACH Temperature 36.7 ??C (98 ??F) 02/27/2022 1:41 PM PROJECT MANAGER/TEAM COACH Respiratory Rate - - Oxygen Saturation - - Inhaled Oxygen Concentration - - Weight 96.2 kg (212 lb) 02/27/2022 1:41 PM PROJECT MANAGER/TEAM COACH Height 165.1 cm (5' 5 ) 02/27/2022 1:41 PM PROJECT MANAGER/TEAM COACH Body Mass Index 35.28 02/27/2022 1:41 PM PROJECT MANAGER/TEAM COACH Plan of Treatment Health Maintenance Due Date Last Done Comments Pneumococcal PPSV23/PCV13 65 + Years / High and Highest Risk (1 of 4 - PCV) 02/14/1961 COVID-19 Vaccine (4 - 2022-2 4 season) 2023 07/11/2020, 05/13/2020, 05/13/2020 Influenza Vaccine (#1) 2023 , 02/06/2020, 12/27/2019, Additional history exists Care Teams Voice Data Communications Engineer Relationship Specialty Start Date End Date Bia Oneill MD [address] [facility] [address] [place] [address] PCP - General Internal Medicine 07/16/18
--- OUTSIDE RECORDS SUMMARY | 2024-04-28 12:40 | XMS_ITS | Continuity of Care Document ---
Author Organization [facility] Address [address] [place] [address] Phone Care Team Providers Care Pilot Safety Inspector Name Role Phone Renny Garcia Unavailable Unavailable Advance Directives Directive Yes / No Effective Date File Name No Information Encounters Encounter Description Practice Location Reason(s) For Visit Diagnoses Date Provider Providers Copied on Encounter [facility], [address], [place], [place], [id number], [place] tel:[phone] [facility] [place] No Information Dec-0 6-200 1 E[address]bert[address] Edward. [address] [facility] [place] , [address], [place], [address], [place]. tel:[phone] Family History Family Member Type Diagnosis Age At Onset No Information Payers Payer name Insurance type Covered democrat ID Authoriza tion(s) [place] [id number] Social History Type Description Quantity Date Captured [...]
--- OUTSIDE RECORDS SUMMARY | 2024-04-28 12:40 | XMS_ITS | Encounter Summary ---
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
--- OUTSIDE RECORDS SUMMARY | 2024-04-28 12:40 | XMS_ITS | Clinical Summary ---
Author Organization [facility] Address [facility] [place] [address] [place] [address] Care Team Providers Care Floor Trader Name Role Phone Cee Rios DIRECTOR OF QUANTITATIVE RESEARCH Primary Care Prov ider Allergies No known active allergies Medications potassium [...] daily. 2 Active vitamin D2, ergocalciferol , 03790 UNITS capsule Take 1 capsule (50,000 Units [...] (01/30/2023): Added automatically from request for surgery [id number] Personal history of colonic polyps 01/30/2023 Overview (01/30/2023): Added automatically from request for surgery [id number] Positive colorectal cancer screening using Colog uard test 10/08/2021 Overview (10/08/2021): Added automatically from request for surgery [id number] Family History Medical History Relation Comments cancer,small [...] Comments Blood Pressure 128/53 06/02/2023 9:55 AM FLIGHT ATTENDANT RAMP Pulse 63 06/02/2023 9:33 AM FLIGHT ATTENDANT RAMP Temperature 36 ??C (96.8 ??F) 06/02/2023 9:26 AM FLIGHT ATTENDANT RAMP Respiratory Rate 20 06/02/2023 8:33 AM FLIGHT ATTENDANT RAMP Oxygen Saturation 97% 06/02/2023 10:00 AM FLIGHT ATTENDANT RAMP Inhaled Oxygen Concentration - - Weight 101.2 kg (223 lb) 05/23/2023 2:05 PM FLIGHT ATTENDANT RAMP Height 166.4 cm (5' 5.5 ) 05/23/2023 2:05 PM FLIGHT ATTENDANT RAMP Body Mass Index 36.54 05/23/2023 2:05 PM FLIGHT ATTENDANT RAMP Plan of Treatment Health Maintenance Due Date [...] 2023 12/29/2021, 02/21/2021, 05/13/2020, Additional history exists PHQ-2 (Physician Torres Martinez) 01/30/2024 01/29/2023 PHQ-2 (Physician Torres Martinez) 03/31/2024 01/29/2023 RSV Immunization or 60+ Years (1 - 1-dose 75+ series) 2029 Colorectal Cancer Screening Colonoscopy (10 Years) 06/01/2033 06/02/2023, 10/18/2021, 10/18/2021 Meningococcal B Vaccine Aged Out No l onger eligible based on patient's age to complete this topic Meningococcal Vaccine Aged Out No halle claudia eligible based on patient's age to complete this topic RSV Immunizations Under 20 Months Aged Out No longer eligible based on patient's age to complete this topic Procedures Procedure Name Priority Date/Time Associated Diagnosis Comments COLONOSCOPY Routine 10/18/2021 2:28 PM CDT from Last 3 Months or Most Recently Relevant to Health Maintenance Insurance MEDICARE [facility] Care Teams Floor Trader Relationship Specialty Start Date End Date Cee Rios FNP [address] [place] [address] PCP - General NURSE PRACTITIONER 12/10/22
--- OUTSIDE RECORDS SUMMARY | 2024-04-28 12:40 | XMS_ITS | Encounter Summary ---
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
--- OUTSIDE RECORDS SUMMARY | 2024-04-28 12:40 | XMS_ITS | Encounter Summary ---
Author Organization [facility] Address [address] [place] [address] Phone Care Team Providers Care Provisioning Specialist Name Role Phone Bia Oneill MD Primary Care Provider [phone] Reason for Visit * Reason Comments Med Refill Encounter Details Date Type Department Care Team (Late st Contact Info) Description 05/27/2021 Refill [facility] Nephrology and Hypertension [address] [facility], [address] [address] Gilmer Barnard MD [address] [facility], [address] [place] [address] Social History Tobacco Use Types Packs/Day Years [...] on filedocumented in this encounter Care Teams Provisioning Specialist Relationship Specialty Start Date End Date Bia Oneill MD [address] [facility] [address] [place] [address] PCP - General Internal Medicine 07/16/18 documented as of this encounter
--- OUTSIDE RECORDS SUMMARY | 2024-04-28 12:40 | XMS_ITS | Referral Summary ---
Author Organization [facility] [address] Address [address] [place] [address] Care Team Providers Care Novelties Sales Representative Name Role Phone Scott Oneill MD Primary Care Provider [phone] Encounters Date Type Department Care Team Description 04/20/2024 Orders Only [facility] Rheumatology [address] [facility] 5th [place] [address] [place] [address] Tiffanie Weiss MD 04/16/2024 Documentation [facility] Pulmonary [address] [facility] 8th [place] [address] [place] [phone] Marce Bernal MD Labs Only 04/15/2024 Telephone [facility] Pulmonary [address] [facility] 8th [place] [address] [place] [phone] Margret Cobb CMA 04/15/2024 Orders Only [facility] Pulmonary [address] [facility] 8th [place] [address] [place] [phone] Polly Paulino RN 04/13/2024 Orders Only [facility] Scanning, Provider 04/13/2024 Orders Only [facility] Scanning, Provider 03/17/2024 3:30 PM CASING INSPECTOR Office Visit [facility] Rheumatology [address] [facility] Medicine 5th [place] [address] [place] [phone] Popping of left knee joint (Primary Dx); Chronic SI joint pain; Low back pain, unspecified back pain laterality, unspecified chronicity, unspecified whether sciatica present 03/05/2024 Documentation [facility] Pulmonary [address] [facility] Medicine 8th [place] [address] [place] [address] Marce Bernal MD Labs Only 03/05/2024 Telephone [facility] Pulmonary [address] [facility] 8th [place] [address] [place] [address] Margret Cobb, LABEL OPERATOR 03/01/2024 Orders Only [facility] Scanning, Provider 02/11/2024 Documentation [facility] Pulmonary [address] [facility] 8th [place] [address] [place] [address] Marce Bernal MD multidisciplinary conference 02/11/2024 Telephone [facility] Pulmonary [address] [place] [address] Margret Cobb, [facility] 02/10/2024 Documentation [facility] Pulmonary [facility] [address] [place] [address] Polly Paulino RN 02/10/2024 Orders Only [facility] Pulmonary [address] [place] [address] [place] [address] Marce Bernal MD SOB (shortness of breath) (Primary Dx); Pulmonary hypertension (HCC); Interstitial lung disease (CMS/HCC) (HCC) 02/05/2024 12:35 PM CASING INSPECTOR - 02/05/2024 11:59 PM CASING INSPECTOR Hospital Encounter [facility] [address] [place] [address] Cough, unspecified type; Cough with hemoptysis Discharge Disposition: Discharge to home or self care 02/05/2024 11:49 AM CASING INSPECTOR - 02/05/2024 11:59 PM CASING INSPECTOR Hospital Encounter [facility] [address] [place] [address] Marce Bernal MD Microscopic polyangiitis (HCC) Discharge Disposition: Discharge to home or self care 02/05/2024 3:00 PM CASING INSPECTOR Office Visit [facility] Pulmonary [address] [facility] 8th [place] [address] [place] [address] Marce Bernal MD Microscopic polyangiitis (HCC) (Primary Dx); Interstitial lung disease (CMS/HCC) (HCC); Stage 3b chronic kidney disease (HCC); Immunosuppression (HCC); Chronic kidney disease, stage IV (severe) (CMS/HCC) (HCC); 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); Morbid (severe) obesity due to excess calories (HCC) 02/05/2024 12:56 PM CASING INSPECTOR - 02/05/2024 11:59 PM CASING INSPECTOR Hospital Encounter [facility] Pulmonary [address] [facility] [address] [place] [address] Microscopic polyangiitis (HCC) Discharge Disposition: Discharge to home or self care 02/02/2024 10:45 AM CASING INSPECTOR Office Visit [facility] Cardiology [address] [place] [phone] Kathrin Austin MD S/P CABG x 3 (Primary Dx); Mixed hyperlipidemia; Hypertension secondary to other renal disorders; Family history of early CAD; GOLDSTEIN (dyspnea on exertion); Chronic deep vein thrombosis (DVT) of proximal vein of lower extremity, unspecified laterality (HCC); Stage 3b chronic kidney disease (HCC); Interstitial lung disease (CMS/HCC) (HCC) from Last 3 Months Allergies No known [...] BY MOUTH DIRECTED ON INSIDE OF PACKAGE Active Active Problems Problem Noted Date Diagnosed Date Immunosuppression 02/05/2024 Chronic kidney disease, stage IV (severe) ([facility]) 02/05/2024 Neuropathy in vasculitis and connective tissue d isease 02/05/2024 Pain in both lower extremities 09/09/2023 GOLDSTEIN (dyspnea on exertion) 09/09/2023 High risk medication use 09/09/2023 Long-term use of immunosuppressant medication Interstitial lung disease ([facility]/HCC) 08/01/2023 Microscopic polyangiitis 05/22/2023 Morbid (severe) obesity [...] Diagnosed Date Resolved Date Angina pectoris syndrome ([facility]) 05/04/2020 10/26/2020 Social History Tobacco Use Types [...] file Legal Sex Male 1:23 AM CASING INSPECTOR Gender Identity Male 12/24/2023 11:25 AM CDT Sexual Orientation Straight 12/24/2023 11 :25 AM CDT 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 Start Date Job End Date [employer], 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, 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 on file Not on file Not on file Last Filed Vital Signs Vital Sign Reading Time Taken Comments Blood Pressure 165/75 03/17/2024 3:28 PM CASING INSPECTOR Pulse 56 03/17/2024 3:28 PM CASING INSPECTOR Temperature 36.6 ??C (97.8 ??F) 03/17/2024 3:28 PM CS T Respiratory Rate 18 02/05/2024 2:17 PM CASING INSPECTOR Oxygen Saturation 97% 03/17/2024 3:28 PM CASING INSPECTOR Inhaled Oxygen Concentration - - Weight 105.6 kg (232 lb 12.8 oz) 03/17/2024 3:28 PM CASING INSPECTOR Height 166.4 cm (5' 5.5 ) 03/17/2024 3:28 PM CASING INSPECTOR Body Mass Index 38.15 03/17/2024 3:28 PM CASING INSPECTOR Plan of Treatment Not on file Procedures Procedure Name Priority Date/Time Associated Diagnosis Comments CBC WITH AUTO DIFFERENTIAL Routine 04/13/2024 3:43 PM CASING INSPECTOR SCAN - LABS 04/13/2024 SCAN - LABS 04/13/2024 ERYTHROCYTE SEDIMENTATION RATE Routine 04/13/2024 Interstitial lung disease (CMS/HCC) (HCC) High risk medication use COMPREHENSIVE METABOLIC PANEL Routine 04/13/2024 Interstitial lung disease (CMS/HCC) (HCC) High risk medication use SCAN - LABS 03/01/2024 PULMONARY FUNCTION TEST (PFT) Routine 02/05/2024 1:57 PM CASING INSPECTOR Microscopic polyangiitis (HCC) XR CHEST PA LATERAL 2 VIEWS Schedule Routine, Read Routine (OP Routine) 02/05/2024 12:47 PM CASING INSPECTOR Cough, unspecified type Cough with hemoptysis CT CHEST HIGH RESOLUTION WO CONTRAST Routine 02/05/2024 12:22 PM CASING INSPECTOR Microscopic polyangiitis (HCC) POCT LIPID PANEL Routine 02/02/2024 11:18 AM CASING INSPECTOR Mixed hyperlipidemia from Last 3 Months Results * (ABNORMAL) CBC with auto differential (04/13/2024 3:43 PM CASING INSPECTOR) SCRIBED WBC 5.3 4.5 - 10.0 k/cumm EXTERNAL LAB SCRIBED RBC 3.66(A) 4.6 - 6.20 m/cumm EXTERNAL LAB SCRIBED Hemoglobin 10.5(A) 14.0 - 18.0 g/dL EXTERNAL LAB SCRIBED Platelets 126(A) 150 - 375 k/cumm EXTERNAL LAB Blood Tiffanie Weiss MD LAB BLOOD ORDERABLES Edited Resu lt - Final Performing Organization Address [facility] Co de Phone Number EXTERNAL LAB * SCAN - LABS (04/13/2024) us Provider Scanning Final Result * SCAN - LABS (04/13/2024) us Provider Scanning Final Result * (ABNORMAL) Erythrocyte sedimentation rate (04/13/2024) Pathologist [facility] SCRIBED ESR 115(A) 0 - 20 mm/hr EXTERNAL LAB Blood 04/13/2024 Tiffanie Weiss MD LAB BLOOD ORDERABLES Final Resul t Performing Organization Address [facility] de Phone Number EXTERNAL LAB * (ABNORMAL) Comprehensive metabolic panel (04/13/2024) Pathologist [facility] SCRIBED Creatinine 2.50(A) 0.7 - 1.3 mg/dl [...] ORDERABLES Final Resul t Performing Organization Address [facility] de Phone Number EXTERNAL LAB * SCAN - LABS (03/01/2024) us Provider Scanning Final Result * Pulmonary Function Test - (02/05/2024 1:57 PM CASING INSPECTOR) FVC PRE 2.39 L [facility] FVC %PRE PRED 67 % [facility] FEV1 PRE 2.10 L [facility] FEV1 %PRE PRED 77 % [facility] FEV1/FVC PRE 88.2 % [facility] DLCO PRE 6.9 ml/min/mmH g [facility] DLCO %PRE PRED 31 % [facility] Anatomical Region Laterality Modality PFT 02/05/2024 1:40 PM CASING INSPECTOR Narrative 02/06/2024 5:40 PM CASING INSPECTOR Table formatting from the original result was not included. [facility] Division of Pulmonary & Critical Care Medicine [address] [place] [address]; [facility]; [place] ??[address]; [phone] Pulmonary Function Laboratory Pulmonary Stress Test Simple/Oxygen [...] with the written final report. PFT performed at:->[facility] PFT [facility]- [facility] Procedure:->Spirometry Procedure:->DLCO [...] X-ray chest 2 views (02/05/2024 12:47 PM CASING INSPECTOR) Anatomical Region Laterality Modality Body, Chest N/A Computed Radiogr aphy 02/05/2024 1:34 PM CASING INSPECTOR Impressions 02/05/2024 1:44 PM CASING INSPECTOR Comparison is made to chest radiograph from [...] Neisha Franks M.D. Narrative 02/05/2024 1:44 PM CASING INSPECTOR EXAMINATION: 2 view chest radiograph Procedure Note [...] High Resolution WO Contrast (02/05/2024 12:22 PM CASING INSPECTOR) Anatomical Region Laterality Modality Chest N/A Computed Tomogra phy 02/05/2024 12:5 1 PM CASING INSPECTOR Impressions 02/05/2024 12:51 PM CASING INSPECTOR Diffuse fibrotic interstitial lung disease throughout the [...] Courtney Shin M.D. Narrative 02/05/2024 12:51 PM CASING INSPECTOR EXAMINATION: ??Computed tomography of the chest high-resolution [...] progressed. Electronically signed by: Courtney Shin M.D. us Marce Bernal MD IMG CT PROCEDURES Final Resu lt * POCT lipid panel (02/02/2024 11:18 AM CASING INSPECTOR) Cholesterol, POC 155 mg/dL Comment:GLU = 100 HDL, POC 30 mg/dL Triglycerides, POC 191 mg/dL LDL Cholesterol POC 86 mg/dL Chol/HDL Ratio, POC 2.9 Non-HDL Cholesterol, POC 125 mg/dL Cholesterol Total, POC 155 mg/dL Capillary blood 02/02/2024 1 1:18 AM CASING INSPECTOR us Kathrin Austin MD POINT OF CARE TEST O RDERABLES Final Result from Last 3 Months Insurance MEDICARE MEDICARE [employer] Advance Directives For more information, please contact: [phone] * Full Code (Latest Code Status on File) Date Activated Date Inactivated Comments 07/17/2020 8:05 PM 07/19/2020 7:41 PM * Full Code Date Activated Date Inactivated Comments 06/08/2020 6:02 PM 06/15/2020 7:20 PM Healthcare Agents on File Name Relationship Healthcare Agent Relationship Communication Shyann Nielsen Spouse First Alternat e Health Care Agent Care Teams Novelties Sales Representative Relationship Specialty Start Date End Date Scott Oneill MD PCP - General Internal Medicine 04/27/20
--- OUTSIDE RECORDS SUMMARY | 2024-04-28 12:40 | XMS_ITS | Encounter Summary ---
Author Organization [facility] Address [address] [place] [address] Phone Care Team Providers Care Pool Nurse Name Role Phone Scott Oneill MD Primary Care Provider Kev Prince DO Unavailable [phone] Tavo Mishra MD Unavailable [phone] Gilmer Barnard MD Unavailable [phone] Kev Moser MD Unavailable [phone] Encounter Details Date Type Department Care Team (Late st Contact Info) Description 08/11/2020 Telephone [facility] [address] [place] [address] Kev Moser MD [address] [place] [phone] Social History Tobacco Use Types Packs/Day [...] on file Legal Sex Male 3:42 PM ACID BATH MIXER Gender Identity Not on file Sexual Orientation [...] had labs done Friday this week at [place]. I have a call out to get those labs faxed over but were there other labs that you needed that [facility] did not draw on Friday? documented in this encounter Plan of Treatment Upcoming Encounters Date Type Department Care Team (Late st Contact Info) Description 05/12/2024 11:00 AM ACID BATH MIXER Lab [facility] [address] [phone] Lab, [facility] 05/12/2024 11:15 AM ACID BATH MIXER Office Visit [facility] [address] [phone] Kev Moser MD [address] [place] [phone] 05/12/2024 11:30 AM ACID BATH MIXER Clinical Support [facility] [address] [address] Nurse, [facility] documented as of this encounter Visit Diagnoses Not on filedocumented in this encounter Additional Health Concerns Assessment Noted Time PHQ-9 Depression Total Score: 0 08/12/19 21 11:41 AM CDT documented as of this encounter Care Teams Pool Nurse Relationship Specialty Start Date End Date Scott Oneill MD PCP - General Internal Medicine 04/29/17 Kev Prince DO Gastroenterology 04/29/17 12/09/22 Tavo Mishra MD [address] [address] Internal Medicine 04/29/17 Gilmer Barnard MD [address] [address] Consulting Physician Internal Medicine 08/28/17 4 Kev Moser MD [address] [place] [phone] Consulting Physician Oncology 02/09/20 documented as of this encounter
== END 2024-04-28 11:16 | disposition home or self-care (01) ==
PROVIDERS: PCP Internal Medicine; Visit Provider Internal Medicine Nephrology
DX: N18.4 Chronic kidney disease, stage 4 (severe) (principal)
CPT/HCPCS: 36415; 80048

== ENCOUNTER 2024-06-02 08:39 | Outpatient (CLI) | payer MEDICARE, OTHER, SELFPAY ==
--- OUTSIDE RECORDS SUMMARY | 2024-06-02 09:04 | XMS_ITS | Encounter Summary ---
Author Organization [facility] Address [address] [place] [address] Phone Care Team Providers Care Box Lidder Name Role Phone Scott Oneill MD Primary Care Provider Tavo Mishra MD Unavailable [phone] Gilmer Barnard MD Unavailable [phone] Kve Moser MD Unavailable Reason for Visit * Reason Comments Medication Refill Encounter Details Date Type Department Care Team (Late st Contact Info) Description 07/01/2023 Refill [facility] [address] [place] [phone] Sindi Qiu, CAPTAIN'S ASSISTANT, COPY MANAGER [address] [place] [address] Medication Refill Social History Tobacco [...] on file Legal 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 Male 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 Gender Identity Not on file Sexual Orientation [...] Care Team (Late st Contact Info) Description 06/09/2024 11:00 AM CDT Lab [facility] [address] [phone] Lab, [facility] 06/09/2024 11:15 AM CDT Office Visit [facility] [address] [phone] Kev Moser MD [address] [place] [phone] 06/09/2024 11:30 AM CDT Clinical Support [facility] [address] [phone] Nurse, [facility] documented as of this encounter Visit Diagnoses Not on filedocumented in this encounter Additional Health Concerns Assessment Noted Time PHQ-9 Depression Total Score: 0 11/25/19 21 11:34 AM CDT documented as of this encounter Care Teams Box Lidder Relationship Specialty Start Date End Date Scott Oneill MD PCP - General Internal Medicine 04/29/17 Tavo Mishra MD [address] [place] [phone] Internal Medicine 04/29/17 Gilmer Barnard MD [address] [place] [address] Consulting Physician Internal Medicine 08/28/17 4 Kev Moser MD [address] [place] [phone] Consulting Physician Oncology 02/09/20 documented as of this encounter
--- OUTSIDE RECORDS SUMMARY | 2024-06-02 09:04 | XMS_ITS | Clinical Summary ---
Author Organization [facility] Address [address] [place] [place] [address] Care Team Providers Care Linux Developer Name Role Phone Scott Oneill MD Primary Care Provider [phone] Allergies No known active allergies Medications atorvastatin [...] on file Legal Sex Male 9:59 AM RATOPRINTER Gender Identity Not on file Sexual Orientation Not on file Last Filed Vital Signs Vital Sign Reading Time Taken Comments Blood Pressure 146/58 05/02/2017 10:20 AM RATOPRINTER Pulse 103 05/02/2017 10:20 AM RATOPRINTER Temperature 36.9 C (98.5 F) 05/02/2017 10:20 AM RATOPRINTER Respiratory Rate 18 05/02/2017 10:20 AM RATOPRINTER Oxygen Saturation - - Inhaled Oxygen Concentration - - Weight 97.1 kg (214 lb) 05/02/2017 10:20 AM RATOPRINTER Height 166.4 cm (5' 5.5 ) 05/02/2017 10:20 AM CS T Body Mass Index 35.07 05/02/2017 10:20 AM RATOPRINTER Plan of Treatment Health Maintenance Due Date Last Done Comments DTAP/TDAP/TD VACCINES (1 - Tdap) 1973 COLORECTAL SCREENING 1999 Colorectal Cancer Screening 1999 FIT-DNA Q 3 years 1999 FIT/FOBT Q 1 year 1999 Flex Sig/CT Colonography Q 5 years 1999 PNEUMOCOCCAL VACCINE 50+ YEARS (1 of 1 - PCV) 02/14/20 04 ZOSTER VACCINE (1 of 2) 02/14/2004 RSV VACCINE (60+ or ) (1 - Risk 60-74 years 1-dose series) 2014 INFLUENZA VACCINE (#1) 2023 Insurance [facility] BLUE ACCESS CHOICE Care Teams Linux Developer Relationship Specialty Start Date End Date Scott Oneill MD [address] [phone] PCP - General Internal Medicine 05/02/17
--- OUTSIDE RECORDS SUMMARY | 2024-06-02 09:04 | XMS_ITS | Encounter Summary ---
Author Organization [facility] Address [address] [place] [address] Phone Care Team Providers Care Manager Supply Name Role Phone Scott Oneill MD Primary Care Provider Tavo Mishra MD Unavailable [phone] Gilmer Barnard MD Unavailable [phone] Kev Moser MD Unavailable [phone] Reason for Visit * Reason Comments Medication Refill Encounter Details Date Type Department Care Team (Late st Contact Info) Description 08/26/2023 Refill [facility] [address] [phone] Kev Moser MD [address] [place] [phone] Medication Refill Social History Tobacco Use [...] on file 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 Gender Identity Not on file Sexual Orientation [...] AM CDT Lab [facility] [address] [phone] [facility], [facility] 06/09/2024 11:15 AM CDT Office [facility] [address] [phone] Kev Moser MD [address] [place] [phone] 06/09/2024 11:30 AM CDT Clinical Support [facility] [address] [phone] Nurse, [facility] documented as of this encounter Visit Diagnoses Not on filedocumented in this encounter Additional Health Concerns Assessment Noted Time PHQ-9 Depression Total Score: 0 11/25/19 21 11:34 AM CDT documented as of this encounter Care Teams Manager Supply Relationship Specialty Start Date End Date Scott Oneill MD PCP - General Internal Medicine 04/29/17 Tavo Mishra MD [address] [place] [phone] Internal Medicine 04/29/17 Gilmer Barnard MD [address] [place] [phone] Consulting Physician Internal Medicine 08/28/17 4 Kev Moser MD [address] [place] [phone] Consulting Physician Oncology 02/09/20 documented as of this encounter
--- OUTSIDE RECORDS SUMMARY | 2024-06-02 09:04 | XMS_ITS | Clinical Summary ---
Author Organization [facility] Address [address] [address] Phone Care Team Providers Care Manager Basketball Name Role Phone Scott Oneill MD Primary Care Provider [phone] Tavo Mishra MD Unavailable Kev Moser MD Unavailable [phone] Allergies No known active allergies Medications Calcium [...] 2 times daily. Active ergocalciferol (VITAMIN D) 17294 UNIT Capsule Take 50,000 Units by mouth [...] mouth 2 times daily. 10/31/19 21 Active aspirin EC 81 MG Tablet [...] 30 Tablet 2 03/26/20 24 Active apixaban (ELIQUIS) 5 MG TabletIndications: History of Thromboembolic Disease Take 1 Tablet by mouth 2 times daily. Indications: History of Disease involving a Thrombosis or an Embolism 05/26/19 25 Active atorvastatin (LIPITOR) 40 MG Tablet 12/18/19 21 025 Discontin ued(Med List Clean Up) apixaban (ELIQUIS) 5 MG TabletIndications: History of Thromboembolic Disease Take 1 Tablet by mouth 2 times daily. Indications: History of Disease involving a Thrombosis or an Embolism 04/30/19 25 025 Discontin ued(Reord er) Active Problems Patient Care Coordination No te Formatting of this note migh t be different from the original. 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 05/23/2017 Hypertension Encounters Date Type Department Care Team Description 05/26/2024 3:30 PM DIAL PRINTER Clinical Support [facility] [address] [phone] Nurse, Cc [place] Other autoimmune hemolytic anemia (HCC) (Primary Dx) 05/26/2024 Travel 05/26/2024 Telephone [facility] [address] [phone] Kev Moser MD canopy call/flower buncher or picker Eliquis samples 05/12/2024 12:00 PM DIAL PRINTER Clinical Support [facility] [address] [phone] Nurse, [facility] [place] Vitamin B 12 deficiency (Primary Dx) 05/12/2024 11:15 AM DIAL PRINTER Office Visit [facility] [address] [phone] Sindi Qiu, STILL PUMP OPERATOR, PLASTERER SPOT Other autoimmune hemolytic anemia (HCC) (Primary Dx); Stage 3a chronic kidney disease (HCC); Vitamin B 12 deficiency 05/12/2024 11:00 AM DIAL PRINTER Lab [facility] [address] [phone] Lab, Cc [place] Anemia in stage 3a chronic kidney disease (HCC); Stage 3a chronic kidney disease (HCC) 05/12/2024 Travel 04/30/2024 11:00 AM DIAL PRINTER Clinical Support [facility] [address] [phone] Nurse, Cc [place] Other autoimmune hemolytic anemia (HCC) (Primary Dx) 04/30/2024 Travel 04/30/2024 Telephone [facility] [address] [phone] Kev Moser MD Canopy Call / Eliquis flower buncher or picker 04/07/2024 11:15 AM DIAL PRINTER Clinical Support [facility] [address] [phone] Nurse, Cc [place] Stage 3a chronic kidney disease (HCC) (Primary Dx); Vitamin B 12 deficiency 04/07/2024 11:10 AM DIAL PRINTER Lab [facility] [address] [phone] Lab, Cc [place] Anemia in stage 3a chronic kidney disease (HCC); Stage 3a chronic kidney disease (HCC) 04/07/2024 Travel 04/01/2024 11:30 AM DIAL PRINTER Clinical Support [facility] [address] [phone] Nurse, Cc [place] Other autoimmune hemolytic anemia (HCC) 04/01/2024 Travel 03/30/2024 Telephone [facility] [address] [phone] Kev Moser MD 03/26/2024 Refill [facility] [address] [phone] Kev Moser MD Medication Refill 03/10/2024 11:30 AM DIAL PRINTER Clinical Support [facility] [address] [phone] Nurse, [facility]c [place] Vitamin B 12 deficiency (Primary Dx) 03/10/2024 11:15 AM DIAL PRINTER Office Visit [facility] [address] [phone] Tanvi Tobar APRN, KEAYNA Anemia in stage 3a chronic kidney disease (HCC) (Primary Dx); Stage 3a chronic kidney disease (HCC); Vitamin B 12 deficiency 03/10/2024 11:00 AM DIAL PRINTER Lab [facility] [address] [phone] Lab, Cc [place] Iron deficiency anemia due to sideropenic dysphagia; Other autoimmune hemolytic anemia (HCC); Stage 3a chronic kidney disease (HCC) 03/10/2024 Travel from Last 3 Months Immunizations Immunization Administration Dates Next Due Covid-19, Mrna, Lnp-s, PF, 1 00 mcg/0.5 mL Dose (Moderna) 05/13/2020 Influenza Vaccine, Quadrivalent, PF 02/03/2019,0 12/25/2017 Influenza Vaccine,unspecified Formulation 2019 Influenza, Injectable, Quadrivalent 05/13/2020 Influenza, Quadrivalent, Adjuvanted 12/27/2019 Influenza, high-dose, trivalent, PF 01/30/2018 Influenza,Split Virus,Trivalent,Injectable,PF Sars-cov-2 (Covid-19) Vaccine, Unspecified 05/13 Family History [...] on file Legal Sex Male 3:42 PM DIAL PRINTER Gender Identity Not on file Sexual Orientation Not on file Last Filed Vital Signs Vital Sign Reading Time Taken Comments Blood Pressure 160/68 05/12/2024 11:18 AM DIAL PRINTER Pulse 57 05/12/2024 11:18 AM DIAL PRINTER Temperature 36.8 C (98.2 F) 05/12/2024 11:18 AM DIAL PRINTER Respiratory Rate 18 05/12/2024 11:1 8 AM DIAL PRINTER Oxygen Saturation 95% 05/12/2024 11: 18 AM DIAL PRINTER Inhaled Oxygen Concentration - - Weight 105.5 kg (232 lb 9.6 oz) 025 11:18 AM DIAL PRINTER Height 165.1 cm (5' 5 ) 05/12/2024 11:1 8 AM DIAL PRINTER Body Mass Index 38.71 05/12/2024 11:18 AM DIAL PRINTER Plan of Treatment Upcoming Encounters Date Type Department Care Team (Late st Contact Info) Description 06/09/2024 11:00 AM CDT Lab [facility] [address] [phone] Lab, Cc [facility] 06/09/2024 11:15 AM CDT Office Visit [facility] [address] [phone] Kev Moser MD [address] [place] [phone] 06/09/2024 11:30 AM CDT Clinical Support [facility] [address] [phone] Nurse, Gricelda [facility] Health Maintenance Due Date Last Done Comments [...] Procedure Name Priority Date/Time Associated Diagnosis Comments C-REACTIVE PROTEIN (CRP) QUANT Routine 05/12/2024 10:59 AM DIAL PRINTER ERYTHROCYTE SEDIMENTATION RATE (ESR) Routine 05/12/2024 10:59 AM DIAL PRINTER COMPLETE BLOOD COUNT (CBC) WITH DIFF Routine 05/12/2024 10:56 AM DIAL PRINTER Anemia in stage 3a chronic kidney disease (HCC) Stage 3a chronic kidney disease (HCC) CMP (COMPREHENSIVE METABOLIC PANEL) Routine 05/12/2024 10:56 AM DIAL PRINTER Anemia in stage 3a chronic kidney disease (HCC) Stage 3a chronic kidney disease (HCC) VITAMIN B12 Routine 05/12/2024 10:56 AM DIAL PRINTER Anemia in stage 3a chronic kidney disease (HCC) Stage 3a chronic kidney disease (HCC) LAB - MISCELLANEOUS 04/13/2024 1 2:00 AM DIAL PRINTER COMPLETE BLOOD COUNT (CBC) WITH DIFF Routine 04/07/2024 10:26 AM DIAL PRINTER Anemia in stage 3a chronic kidney disease (HCC) Stage 3a chronic kidney disease (HCC) COMPLETE BLOOD COUNT (CBC) WITH DIFF Routine 03/10/2024 11:00 AM DIAL PRINTER 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) Stage 3a chronic kidney disease (HCC) CMP (COMPREHENSIVE METABOLIC PANEL) Routine 03/10/2024 11:00 AM DIAL PRINTER 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) Stage 3a chronic kidney disease (HCC) LACTATE DEHYDROGENASE (LD) Routine 03/10/2024 11:00 AM DIAL PRINTER 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) Stage 3a chronic kidney disease (HCC) VITAMIN B12 Routine 03/10/2024 11:00 AM DIAL PRINTER 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) Stage 3a chronic kidney disease (HCC) FOLIC ACID (FOLATE) Routine 03/10/2024 1 1:00 AM DIAL PRINTER 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) Stage 3a chronic kidney disease (HCC) FERRITIN Routine 03/10/2024 11:00 AM DIAL PRINTER 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) Stage 3a chronic kidney disease (HCC) RETICULOCYTE COUNT (RETIC) Routine 03/10/2024 11:00 AM DIAL PRINTER 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) Stage 3a chronic kidney disease (HCC) IRON W/ IRON BINDING CAPACITY [place] Routine 03/10/2024 11:00 AM DIAL PRINTER 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) Stage 3a chronic kidney disease (HCC) from Last 3 Months Results * (ABNORMAL) ERYTHROCYTE SEDIMENTATION RATE (ESR) (05/12/2024 10:59 AM DIAL PRINTER) Erythrocyte Sedimentation Rate 50(H) 0 - 20 mm/hr [facility] 05/12/2024 10:5 9 AM DIAL PRINTER us Tiffanie Weiss MD HEMATOLOGY ORDERABLES Final Resu lt Performing Organization Address City/[facility]/ZIP Co de Phone Number [facility] [address] [place] [address], [place] [phone] * (ABNORMAL) C-REACTIVE PROTEIN (CRP) QUANT (05/12/2024 10:59 AM DIAL PRINTER) CRP 6.1(H) <5.0 mg/L [facility] 05/12/2024 10:5 9 AM DIAL PRINTER us Tiffanie Weiss MD CHEMISTRY ORDERABLES Final Resul t Performing Organization Address City/[facility]/ZIP Co de Phone Number [facility] [address] [place] [address], * VITAMIN B12 (05/12/2024 10:56 AM DIAL PRINTER) Only the most recent of2 resultswithin the time period is included. Vitamin B12 480 180 - 914 pg/mL [facility] Blood 05/12/2024 10:5 6 AM DIAL PRINTER Narrative [facility] 05/13/2024 2:46 PM DIAL PRINTER Release to patient->Immediate Tanvi Tobar APRN, CNP CHEMISTRY ORDERABLES Final Result [facility] SEALING MACHINE FE[facility] [place] [address], * (ABNORMAL) CMP (COMPREHENSIVE METABOLIC PANEL) (05/12/2024 10:56 AM DIAL PRINTER) Only the most recent of2 resultswithin the time period is included. Glucose 73 70 - 105 mg/dL [facility] Blood Urea Nitrogen 50(H) 7 - 25 mg/dL [facility] Creatinine 2.4(H) 0.7 - 1.3 mg/dL [facility] Sodium 136 136 - 145 mEq/L [facility] Potassium 5.4(H) 3.5 - 5.1 mEq/L [facility] Chloride 105 98 - 107 mEq/L [facility] Bicarbonate 17(L) 21 - 31 mEq/L [facility] Total Bilirubin 0.8 0.3 - 1.0 mg/dL [facility] Alk. Phosphatase 80 34 - 104 U/L [facility] Aspartate Aminotransferase 10(L) 13 - 39 U/L [facility] Alanine Aminotransferase 10 7 - 52 U/L [facility] Total Protein 6.5 6.4 - 8.9 g/dL [facility] Albumin 4.5 3.5 - 5.7 g/dL [facility] Calcium 8.6 8.6 - 10.3 mg/dL [facility] Anion Gap 19.4(H) 7.0 - 15.0 mEq/L [facility] Globulin 2.0 2.0 - 3.5 g/dL [facility] EGFR 28(L) >60 ml/min/1. 73m2 [facility] Comment: This eGFR is calculated using 2020 CKD-EPI Creatinine equation without race modifier based on the NKF-ASN task force recommendations Blood 05/12/2024 10:5 6 AM DIAL PRINTER Narrative [facility] - 05/12/2024 12:09 PM DIAL PRINTER Release to patient->Immediate IS THE PATIENT REQUIRED TO BE FASTING FOR 8 HOURS?->No us Tanvi Tobar STILL PUMP OPERATOR, PLASTERER SPOT CHEMISTRY ORDERABLES Final Result [facility]OX SEALING MACHINE FE[facility] [place] [address], * (ABNORMAL) COMPLETE BLOOD COUNT (CBC) WITH DIFF (05/12/2024 10:56 AM DIAL PRINTER) Only the most recent of3 resultswithin the time period is included. WBC 5.9 4.0 - 10.0 10*3/uL [facility] HGB 11.1(L) 13.7 - 17.5 g/dL [facility] HCT 35.9(L) 40.1 - 51.0 % [facility] SEALING MACHINE FEED[facility] PLT 149(L) 163 - 369 10*3/uL [facility] MPV 10.2 9.4 - 12.4 fL [facility] SE[facility] RBC 3.92(L) 4.63 - 6.08 10*6/uL [facility] MCV 92 79 - 95 fL [facility] SEALING M[facility] FE[facility] MCH 28.3 25.6 - 32.2 pg [facility] SEALING MACHINE FE[facility] MCHC 30.9(L) 32.2 - 36.5 g/dL [facility] SEALING [facility] FE[facility] RDW 14.9(H) 11.6 - 14.4 % [facility] SEAL[facility] FE[facility] Absolute Neutrophil Count 4,212 cells/uL [facility] Absolute Seg Count 4,212 1,440 - 6,600 cells/uL [facility] Absolute Lymph Count 702(L) 760 - 4,000 cells/uL [facility] Absolute Ellis Count 702 160 - 1,200 cells/uL [facility] Absolute Eos Count 234 0 - 300 cells/uL [facility] Segmented Neutrophils 72(H) 36 - 66 % [facility]OX SEALING MACHINE FE[facility] Lymphocytes 12(L) 19 - 40 % [facility] Monocytes 12 4 - 12 % [facility] Eosinophils 4(H) 0 - 3 % [facility] WBC Estimate Normal [facility] SE[employer] Platelet Estimate Low [facility] SEAL[facility] FEED[facility] RBC Morphology Abnormal [facility] R BOX SEALING MACHINE FE[facility] Anisocytosis 1+ [facility]OX SEALING [facility] FE[facility] Blood 05/12/2024 10:5 6 AM DIAL PRINTER Narrative [facility] SE[facility] - 05/12/2024 12:39 PM DIAL PRINTER Release to patient->Immediate Tanvi Tobar APRN, PLASTERER SPOT HEMATOLOGY ORDERABLES Final Result Performing Organization Address [facility]/ZIP Co de Phone Number CANC[facility]OX SEALING MACHINE FE[facility] [place] [address], * LAB - MISCELLANEOUS (04/13/2024 12:00 AM DIAL PRINTER) 04/13/2024 Provider Scan CHEMISTRY ORDERABLES Final Resul t Performing Organization Address [facility]/ZIP Co de Phone Number SCAN * IRON W/ IRON BINDING CAPACITY [place] (03/10/2024 11:00 AM DIAL PRINTER) IRON 66 50 - 212 ug/dL [facility] SEAL[employer] [facility] FE[facility] UIBC 205 155 - 355 ug/dL [facility] TIBC 271 261 - 478 ug/dl [facility] SEAL[facility] % Saturation 24 20 - 50 % [facility] 03/10/2024 11:0 0 AM DIAL PRINTER Narrative [facility] SEAL[employer] [facility] FE[facility] - 03/10/2024 12:06 PM DIAL PRINTER Release to patient->Immediate us Kev Moser MD LAB SEND OUTS Final Resul t Performing Organization Address City/[facility]/ZIP Co de Phone Number [facility] SEALING MACHINE FE[facility]ER [facility] [place] [address] [place] [address], * (ABNORMAL) RETICULOCYTE COUNT (RETIC) (03/10/2024 11:00 AM DIAL PRINTER) Reticulocyte count 2.14(H) 0.51 - 1.81 % [facility] SEALING [facility] FE[facility] RET-He 29.10 28.20 - 36.60 pg [facility] SEALING [facility] Comment: RET-He is a direct assessment of incorporation of iron into erythrocyte hemoglobin. It provides an indirect measure of the iron available for new erythropoiesis over past 2-4 days. Blood 03/10/2024 11:0 0 AM DIAL PRINTER Narrative [facility] - 03/10/2024 11:15 AM DIAL PRINTER Release to patient->Immediate us Kev Moser MD HEMATOLOGY ORDERABLES Final Result Performing Organization Address City/[facility]/ZIP Co de Phone Number [facility] [address] [place] [address], * LACTATE DEHYDROGENASE (LD) (03/10/2024 11:00 AM DIAL PRINTER) LDH 187 140 - 271 U/L [facility] Blood 03/10/2024 11:0 0 AM DIAL PRINTER [employer] [facility] - 03/10/2024 12:06 PM DIAL PRINTER Release to patient->Immediate us Kev Moser MD CHEMISTRY ORDERABLES Final Result [facility] [address] [place] [address], * FOLIC ACID (FOLATE) (03/10/2024 11:00 AM DIAL PRINTER) Folate 12.20 >=5.90 ng/mL [facility] Blood 03/10/2024 11:[address] [facility] - 03/11/2024 2:49 PM DIAL PRINTER Release to patient->Immediate IS THE PATIENT REQUIRED TO BE FASTING FOR 12 HOURS?->No us Kev Moser MD CHEMISTRY ORDERABLES Final Result Performing Organization Address [facility] Co de Phone Number [facility] [address] [place] [address], [place] [phone] * (ABNORMAL) FERRITIN (03/10/2024 11:00 AM DIAL PRINTER) Ferritin 361(H) 24 - 336 ng/mL [facility] Blood 03/10/2024 11:[address] [facility] - 03/11/2024 2:49 PM DIAL PRINTER Release to patient->Immediate us Kev Moser MD CHEMISTRY ORDERABLES Final Result Performing Organization Address [facility] de Phone Number [facility] [address] [place] [address], [place] [phone] from Last 3 Months Insurance MEDICARE , [place] [id number] MEDICARE [facility] Care Teams Manager Basketball Relationship Specialty Start Date End Date Scott Oneill MD PCP - General Internal Medicine 04/29/17 Tvao Mishra MD [address] [address] Internal Medicine 04/29/17 Kev Moser MD [address] [place] [phone] Consulting Physician Oncology 02/09/20
--- OUTSIDE RECORDS SUMMARY | 2024-06-02 09:04 | XMS_ITS | Encounter Summary ---
Author Organization [facility] Address [address] [place] [address] Phone Care Team Providers Care Check Writer Name Role Phone Scott Oneill MD Primary Care Provider Tavo Mishra MD Unavailable [phone] Gilmer Barnard MD Unavailable [phone] Kev Moser MD Unavailable [phone] Reason for Visit * Reason Comments Medication Refill Encounter Details Date Type Department Care Team (Late st Contact Info) Description 07/27/2023 Refill [facility] [address] [phone] Kev Moser MD [address] [place] [phone] Medication Refill Social History Tobacco Use [...] file 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 Refill if appropriate. documented in this encounter Plan of Treatment Upcoming Encounters Date Type Department Care Team (Late st Contact Info) Description 06/09/2024 11:00 AM CDT Lab [facility] [address] [phone] Lab, [facility] 06/09/2024 11:15 AM CDT Office Visit [facility] [address] [phone] Kev Moser MD [address] [place] [phone] 06/09/2024 11:30 AM CDT Clinical Support [facility] [address] [phone] Nurse, [facility] documented as of this encounter Visit Diagnoses Not on filedocumented in this encounter Additional Health Concerns Assessment Noted Time PHQ-9 Depression Total Score: 0 11/25/19 11:34 AM CDT documented as of this encounter Care Teams Check Writer Relationship Specialty Start Date End Date Scott Oneill MD PCP - General Internal Medicine 04/29/17 Tavo Mishra MD [address] [place] [phone] Internal Medicine 04/29/17 Gilmer Barnard MD [address] [place] [phone] Consulting Physician Internal Medicine 08/28/17 4 Kev Moser MD [address] [place] [phone] Consulting Physician Oncology 02/09/20 documented as of this encounter
--- OUTSIDE RECORDS SUMMARY | 2024-06-02 09:04 | XMS_ITS | Clinical Summary ---
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 02/05/2024 Pain in both lower extremities 09/09/2023 GOLDSTEIN (dyspnea on exertion) 09/09/2023 High risk medication use 09/09/2023 Long-term use of immunosuppressant medication Interstitial lung disease 08/01/2023 Microscopic polyangiitis 05/22/2023 Morbid (severe) obesity [...] Diagnosed Date Resolved Date Angina pectoris syndrome 05/04/2020 Encounters Date Type Department Care Team Description 04/20/2024 Orders Only [facility] Rheumatology [address] [place] [address] Medicine 5th [place] [address] [place] [address] Tiffanie Weiss MD 04/16/2024 Documentation [facility] Pulmonary [address] [place] [address] Medicine 8th [place] [address] [place] [id number] Marce Bernal MD Labs Only 04/15/2024 Telephone [facility] Pulmonary [address] [place] [address] 8th [place] [address] [place] [id number] Margret Cobb CMA 04/15/2024 Orders Only [facility] Pulmonary [address] [place] [address] 8th [place] [address] [place] [address] Polly Paulino RN 04/13/2024 Orders Only [facility] Scanning, Provider 04/13/2024 Orders Only [facility]HE[facility] Scanning, Provider 03/17/2024 3:30 PM GREENHOUSE TECHNICIAN Office Visit [facility] Rheumatology [address] [place] [address] Medicine 5th [place] [address] [place] [address] Popping of left knee joint (Primary Dx); Chronic SI joint pain; Low back pain, unspecified back pain laterality, unspecified chronicity, unspecified whether sciatica present 03/05/2024 Documentation [facility] Pulmonary [address] [place] [address] Medicine 8th [place] [address] [place] [address] Marce Bernal MD Labs Only 03/05/2024 Telephone [facility] Pulmonary [address] [facility] 8th [place] [address] [place] [address] Margret Cobb CMA from Last 3 Months Surgical History Surgery Date Site/Laterality Comments CARDIAC CATHETERIZATION 06/08/2020 CORONARY ARTERY BYPASS GRAFT 06/12/2020 CABG X3 SKIN CANCER EXCISION 03/31/2003 - 03/30/2004 Medical History Medical History Date Comments Hypertension Overweight Hyperlipidemia Renal failure Arthritis DVT (deep venous thrombosis) (HCC) Skin cancer History of transfusion Sleep [...] on file Legal Sex Male 1:23 AM GREENHOUSE TECHNICIAN Gender Identity Male 12/24/2023 11:25 AM CDT Sexual Orientation Straight 12/24/2023 11 :25 AM CDT 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 Start Date Job End Date [employer], 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, 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 Not on file Not on file Not on file Obstetrics History Last Filed Vital Signs Vital Sign Reading Time Taken Comments Blood Pressure 165/75 03/17/2024 3:28 PM GREENHOUSE TECHNICIAN Pulse 56 03/17/2024 3:28 PM GREENHOUSE TECHNICIAN Temperature 36.6 C (97.8 F) 03/17/2024 3:28 PM GREENHOUSE TECHNICIAN Respiratory Rate 18 02/05/2024 2:17 PM GREENHOUSE TECHNICIAN Oxygen Saturation 97% 03/17/2024 3:28 PM GREENHOUSE TECHNICIAN Inhaled Oxygen Concentration - - Weight 105.6 kg (232 lb 12.8 oz) 03/17/2024 3:28 PM GREENHOUSE TECHNICIAN Height 166.4 cm (5' 5.5 ) 03/17/2024 3:28 PM GREENHOUSE TECHNICIAN Body Mass Index 38.15 03/17/2024 3:28 PM GREENHOUSE TECHNICIAN Plan of Treatment Health Maintenance Due Date Last Done Comments Colon Cancer Screening-Colonoscopy 1955 Depression Screening 1955 Hepatitis C Screening 1955 DTaP/Tdap/Td Vaccine (1 - Tdap) 1965 Hepatitis B Screening 02/14/1972 Zoster Vaccine (1 of 2) 1973 Pneumococcal vaccine 65+ (2 of 2 - PPSV23) 06/26/2017 05/01/2017 Abdominal Aortic Aneurysm (A AA) Screen 2019 Well Visit 65+ 2019 Covid-19 Vaccine (3 - Modern a risk series) 08/08/2020 07/11/2020, 05/13/2020 Fall Risk Assessment 07/19/2021 07/19/2020 Influenza Vaccine (#1) 2023 2, 02/21/2021, 05/13/2020, Additional history exists Procedures Procedure Name Priority Date/Time Associated Diagnosis Comments CBC WITH AUTO DIFFERENTIAL Routine 04/13/2024 3:43 PM GREENHOUSE TECHNICIAN SCAN - LABS 04/13/2024 SCAN - LABS 04/13/2024 ERYTHROCYTE SEDIMENTATION RATE Routine 04/13/2024 Interstitial lung disease (HCC) High risk medication use COMPREHENSIVE METABOLIC PANEL Routine 04/13/2024 Interstitial lung disease (HCC) High risk medication use from Last 3 Months Results * (ABNORMAL) CBC with auto differential (04/13/2024 3:43 PM GREENHOUSE TECHNICIAN) SCRIBED WBC 5.3 4.5 - 10.0 k/cumm EXTERNAL LAB SCRIBED RBC 3.66(A) 4.6 - 6.20 m/cumm EXTERNAL LAB SCRIBED Hemoglobin 10.5(A) 14.0 - 18.0 g/dL EXTERNAL LAB SCRIBED Platelets 126(A) 150 - 375 k/cumm EXTERNAL LAB Blood Tiffanie Weiss MD LAB BLOOD ORDERABLES Edited Resu lt - Final Performing Organization Address [facility]/ZIP Co de Phone Number EXTERNAL LAB * SCAN - LABS (04/13/2024) Provider Scanning Final Result * SCAN - LABS (04/13/2024) us Provider Scanning Final Result * (ABNORMAL) Erythrocyte sedimentation rate (04/13/2024) SCRIBED ESR 115(A) 0 - 20 mm/hr EXTERNAL LAB Blood 04/13/2024 Tiffanie Weiss MD LAB BLOOD ORDERABLES Final Resul t Performing Organization Address [facility] de Phone Number EXTERNAL LAB * (ABNORMAL) Comprehensive metabolic panel (04/13/2024) SCRIBED Creatinine 2.50(A) 0.7 - 1.3 mg/dl [...] Final Resul t Performing Organization Address City/[facility]/ZIP Co de Phone Number EXTERNAL LAB from Last 3 Months Insurance MEDICARE MEDICARE [facility] MEDICARE [employer]ICARE Advance Directives For more information, please contact: [phone] * Full Code (Latest Code Status on File) Date Activated Date Inactivated Comments 07/17/2020 8:05 PM 07/19/2020 7:41 PM * Full Code Date Activated Date Inactivated Comments 06/08/2020 6:02 PM 06/15/2020 7:20 PM Healthcare Agents on File Name Relationship Healthcare Agent Relationship Communication Shyann Morales Spouse First Alternat e Health Care Agent Care Teams Assessment Nurse Relationship Specialty Start Date End Date Scott Oneill MD PCP - General Internal Medicine 04/27/20
--- OUTSIDE RECORDS SUMMARY | 2024-06-02 09:04 | XMS_ITS | Encounter Summary ---
Author Organization [facility] Address [address] [place] [address] Phone Care Team Providers Care Marine Water Tender Name Role Phone Scott Oneill MD Primary Care Provider Tavo Mishra MD Unavailable [phone] Gilmer Barnard MD Unavailable [phone] Kev Moser MD Unavailable Encounter Details Date Type Department Care Team (Late st Contact Info) Description 11/04/2023 Telephone [facility] [address] [place] [address] Kev Moser MD [address] [place] [phone] Social History Tobacco Use Types Packs/Day [...] on file Legal Sex Male 3:42 PM 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 OPERATOR Gender Identity Not on file Sexual Orientation Not on file documented as of this encounter Plan of Treatment Upcoming Encounters Date Type Department Care Team (Late st Contact Info) Description 06/09/2024 11:00 AM CDT Lab [facility] [address] [address] [facility] 06/09/2024 11:15 AM CDT Office Visit [facility] [address] [address] Kev Moser MD [address] [place] [phone] 06/09/2024 11:30 AM CDT Clinical Support [facility] [address] [address] Nurse, [facility] documented as of this encounter Visit Diagnoses Not on filedocumented in this encounter Additional Health Concerns Assessment Noted Time PHQ-9 Depression Total Score: 0 11/25/19 21 11:34 AM CDT documented as of this encounter Care Teams Marine Water Tender Relationship Specialty Start Date End Date Scott Oneill MD PCP - General Internal Medicine 04/29/17 Tavo Mishra MD [address] [address] Internal Medicine 04/29/17 Gilmer Barnard MD [address] [address] Consulting Physician Internal Medicine 08/28/17 4 Kev Mosre MD [address] [place] [phone] Consulting Physician Oncology 02/09/20 documented as of this encounter
--- OUTSIDE RECORDS SUMMARY | 2024-06-02 09:04 | XMS_ITS | Encounter Summary ---
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
--- OUTSIDE RECORDS SUMMARY | 2024-06-02 09:05 | XMS_ITS | Encounter Summary ---
Author Organization [facility] Address [address] [place] [address] Phone Care Team Providers Care School Transportation Director Name Role Phone Scott Oneill MD Primary Care Provider Kev Prince DO Unavailable [phone] Tavo Mishra MD Unavailable [phone] Gilmer Barnard MD Unavailable [phone] Kev Moser MD Unavailable [phone] Encounter Details Date Type Department Care Team (Late st Contact Info) Description 12/31/2019 Telephone [facility] [address] [address] Kev Moser MD [address] [place] [phone] Social History Tobacco Use Types Packs/Day [...] file Legal Sex Male 3:42 PM CLINICAL QUALITY RN Gender Identity Not on file Sexual Orientation [...] AM CDT Lab [facility] [address] [phone] Lab, [facility] 06/09/2024 11:15 AM CDT Office Visit [facility] [address] [phone] Kev Moser MD [address] [place] [phone] 06/09/2024 11:30 AM CDT Clinical Support [facility] [address] [phone] Nurse, [facility] documented as of this encounter Visit Diagnoses Not on filedocumented in this encounter Additional Health Concerns Assessment Noted Time PHQ-9 Depression Total Score: 0 10/04/19 20 2:45 PM CDT documented as of this encounter Care Teams School Transportation Director Relationship Specialty Start Date End Date Scott Oneill MD PCP - General Internal Medicine 04/29/17 Kev Prince DO Gastroenterology 04/29/17 12/09/22 Tavo Mishra MD [address] [place] [address] Internal Medicine 04/29/17 Gilmer Barnard MD [address] [place] [address] Consulting Physician Internal Medicine 08/28/17 4 Kev Moser MD [address] [place] [phone] Consulting Physician Oncology 02/09/20 documented as of this encounter
--- OUTSIDE RECORDS SUMMARY | 2024-06-02 09:05 | XMS_ITS | Encounter Summary ---
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
--- OUTSIDE RECORDS SUMMARY | 2024-06-02 09:05 | XMS_ITS | Encounter Summary ---
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
--- OUTSIDE RECORDS SUMMARY | 2024-06-02 09:05 | XMS_ITS | Encounter Summary ---
Author Organization [facility] Address [address] [place] [address] Phone Care Team Providers Care Case Coordinator Name Role Phone Scott Oneill MD Primary Care Provider [phone] Encounter Details Date Type Department Care Team [...] on file Legal Sex Male 1:23 AM METAL TANK BUILDER Gender Identity Male 12/24/2023 11:25 AM CDT [...] on filedocumented in this encounter Care Teams Case Coordinator Relationship Specialty Start Date End Date Scott Oneill MD PCP - General Internal Medicine 04/27/20 documented as of this encounter
--- OUTSIDE RECORDS SUMMARY | 2024-06-02 09:05 | XMS_ITS | Encounter Summary ---
Author Organization [facility] Address [address] [place] [address] Phone Care Team Providers Care Supervisor Brine Name Role Phone Scott Oneill MD Primary Care Provider [phone] Kev Prince DO Unavailable [phone] Tavo Mishra MD Unavailable [phone] Gilmer Barnard MD Unavailable [phone] Kev Moser MD Unavailable [phone] Encounter Details Date Type Department Care Team (Late st Contact Info) Description 08/11/2020 Telephone [facility] [place] [address] [place] [address] Kev Moser MD [address] [place] [phone] Social History Tobacco Use Types Packs/Day [...] on file Legal Sex Male 3:42 PM 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 I have a call out to get those labs faxed over but were there other labs that you needed that [facility] did not draw on Friday? documented in this encounter Plan of Treatment Upcoming Encounters Date Type Department Care Team (Late st Contact Info) Description 06/09/2024 11:00 AM CDT Lab [facility] [address] [phone] Lab, [facility] 06/09/2024 11:15 AM CDT Office Visit [facility] [address] [phone] Kev Moser MD [address] [place] [phone] 06/09/2024 11:30 AM CDT Clinical Support [facility] [address] [phone] Nurse, [facility] documented as of this encounter Visit Diagnoses Not on filedocumented in this encounter Additional Health Concerns Assessment Noted Time PHQ-9 Depression Total Score: 0 08/12/19 21 11:41 AM CDT documented as of this encounter Care Teams Supervisor Brine Relationship Specialty Start Date End Date Scott Oneill MD PCP - General Internal Medicine 04/29/17 Kev Prince DO Gastroenterology 04/29/17 12/09/22 Tavo Mishra MD [address] [facility] [address] [place] [phone] Internal Medicine 04/29/17 Gilmer Barnard MD [address] [place] [phone] Consulting Physician Internal Medicine 08/28/17 4 Kev Moser MD [address] [place] [phone] Consulting Physician Oncology 02/09/20 documented as of this encounter
--- OUTSIDE RECORDS SUMMARY | 2024-06-02 09:05 | XMS_ITS | Clinical Summary ---
Author Organization [facility] Address [address] [place] [address] Phone Care Team Providers Care Laborer Tree Tapping Name Role Phone Bia Oneill MD Primary Care Provider [phone] Allergies No known active allergies Medications Medication [...] 03/10/2022 Active ergocalciferol (VITAMIN D2) 1.25 MG (31298 UT) capsule Take 1 capsule by mouth [...] Comments Blood Pressure 128/60 02/27/2022 1:41 PM OBSERVER HELPER Pulse 72 02/27/2022 1:41 PM OBSERVER HELPER Temperature 36.7 C (98 F) 02/27/2022 1:41 PM OBSERVER HELPER Respiratory Rate - - Oxygen Saturation - - Inhaled Oxygen Concentration - - Weight 96.2 kg (212 lb) 02/27/2022 1:41 PM OBSERVER HELPER Height 165.1 cm (5' 5 ) 02/27/2022 1:41 PM OBSERVER HELPER Body Mass Index 35.28 02/27/2022 1:41 PM OBSERVER HELPER Plan of Treatment Health Maintenance Due Date Last Done Comments Pneumococcal PPSV23/PCV13 65 + Years / High and Highest Risk (1 of 4 - PCV) 02/14/1961 COVID-19 Vaccine ( - 2023-2 5 season) 2023 07/11/2020, 05/13/2020, 05/13/2020 Influenza Vaccine (#1) 2023 , 02/06/2020, 12/27/2019, Additional history exists Care Teams Laborer Tree Tapping Relationship Specialty Start Date End Date Bia Oneill MD [address] [facility] [address] [place] [address] PCP - General Internal Medicine 07/16/18
--- OUTSIDE RECORDS SUMMARY | 2024-06-02 09:05 | XMS_ITS | Encounter Summary ---
Author Organization [facility] Address [address] [place] [address] Phone Care Team Providers Care Coping Machine Operator Name Role Phone Bia Oneill MD Primary Care Provider [phone] Reason for Visit * Reason Comments Med Refill Encounter Details Date Type Department Care Team (Late st Contact Info) Description 05/27/2021 Refill [facility] Nephrology and Hypertension [address] [facility], [address] [address] Gilmer Barnard MD [address] [facility] [address] [place] [address] Social History Tobacco Use Types Packs/Day Years [...] on filedocumented in this encounter Care Teams Coping Machine Operator Relationship Specialty Start Date End Date Bia Oneill MD [address] [facility] [address] [place] [address] PCP - General Internal Medicine 07/16/18 documented as of this encounter
--- OUTSIDE RECORDS SUMMARY | 2024-06-02 09:05 | XMS_ITS | CONTINUITY OF CARE DOCUMENT ---
Author Name shabbir shea Address Unknown Organization [facility] Address [address] [place] [address] [address] [place] [address] Phone [phone] Care Team Providers Care Cooperative Extension Agent Name Role Phone Carla HAMMOND, Ny Franz Unavailable Scott Oneill MD Unavailable [phone] Scott Oneill MD Unavailable [phone] INSURANCE PROVIDERS Payer name Policy type / Coverage type [place] red libertarian ID [employer] Commercial insura [place] [id number] [place] Medicare [id number]
--- OUTSIDE RECORDS SUMMARY | 2024-06-02 09:05 | XMS_ITS | Encounter Summary ---
Author Organization [facility] Address [address] [place] [address] Phone Care Team Providers Care Research Asst Name Role Phone Scott Oneill MD Primary Care Provider Tavo Mishra MD Unavailable [phone] Kev Moser MD Unavailable [phone] Reason for Visit * Reason Onset Date Comments canopy call/case picker Eliquis samples 05/26/2024 Encounter Details Date Type Department Care Team (Late st Contact Info) Description 05/26/2024 Telephone [facility] [address] [place] [address] Kev Moser MD [address] [place] [phone] canopy call/case picker Eliquis samples Social History Tobacco Use Types Packs/Day Years [...] on file Legal Sex Male 3:42 PM AGRICULTURAL INSPECTOR Gender Identity Not on file Sexual Orientation Not on file documented as of this encounter Miscellaneous Notes * Telephone Encounter - Anne Valentin RN - 05/26/2024 2:45 PM AGRICULTURAL INSPECTOR Pt arrived today to case picker samples. CULTURAL INSPECTOR * Telephone Encounter - Suzie Black RN - 05/26/2024 1:57 PM CST pt called to speak to Fritz regarding Eliquis samples [phone] Spoke with patient he will case picker Eliquis samples today by 3pm. CULTURAL INSPECTOR documented in this encounter Plan of Treatment Upcoming Encounters Date Type Department Care Team (Late st Contact Info) Description 06/09/2024 11:00 AM CDT Lab [facility] [address] [phone] Lab, [facility] 06/09/2024 11:15 AM CDT Office Visit [facility] [address] [phone] Kev Moser MD [address] [place] [phone] 06/09/2024 11:30 AM CDT Clinical Support [facility] [address] [phone] Nurse, [facility] documented as of this encounter Visit Diagnoses Not on filedocumented in this encounter Additional Health Concerns Assessment Noted Time PHQ-9 Depression Total Score: 0 11/25/19 21 11:34 AM CDT documented as of this encounter Care Teams Research Asst Relationship Specialty Start Date End Date Scott Oneill MD PCP - General Internal Medicine 04/29/17 Tavo Mishra MD [address] [address] Internal Medicine 04/29/17 Kev Moser MD [address] [place] [phone] Consulting Physician Oncology 02/09/20 documented as of this encounter
--- OUTSIDE RECORDS SUMMARY | 2024-06-02 09:05 | XMS_ITS | Encounter Summary ---
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
--- OUTSIDE RECORDS SUMMARY | 2024-06-02 09:05 | XMS_ITS | Data Portability ---
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 Plan of Treatment Reminders Order Date Submit Date Provider Last Modified By Organization Details Last Modified Time Details Appointments Establish ed Patient 15 2024 09:45A M Leann Oneill MD Not available Not available Not available Lab testoster one, free + total, serum 2024 025 2 [facility], [address] [place] [address], [id number], 05/06/2024 08:40:30 PSA, serum or plasma 2023 024 [email or web address] [facility], [address] [place] [address], [id number], 12/17/2023 07:51:57 lipid panel, serum [email or web address], [address] [place] [address], [id number], 12/17/2023 07:51:56 Referral None recorded. Procedures None recorded. Surgeries None recorded. Imaging None recorded. Medication Orders tadalafil 20 mg tablet 2024 025 [facility], [address] [place], [address], 04/08/2024 09:47:11 Patient TargetsNo targets recorded. Patient Instructions Encounter Date Encounter Id Patient Instructions Last Modified By Organization Details Last Modified Time 04/08/2023 [id number] Not available 04/08/2023 12:36:21 08/05/2023 [id number] [email or web address] Not available 08/05/2023 12:11:17 12/10/2023 [id number] dementia rating scale-2* Not available 12/10/2023 17:40:46 alcohol misuse* Not available 12/10/2023 17:40:46 depression screening* Not available 12/10/2023 17:40:47 Timed Up and Go test (TUG)* Not available 12/10/2023 17:40:46 multi-dimensiona l health assessment questionnaire* Not available 12/10/2023 17:40:47 advance care planning: care instructions Not available 12/10/2023 17:40:46 advance directiv es: care instructions Not available 12/10/2023 17:40:47 [place] Advance Directives Not available 12/10/2023 17:40:47 Personalized Health Plan and Screening Recommendations Advance Directives - Do you have one? No You have indicated that you are capable of preparing your advance care directive Advance Directives - Do we have your advance directive on file in your health record? No, please bring in a copy at your earliest convenience Primary Prevention/Interven tion (prevents or decreases the chance of common diseases from occurring) Smoking Risk: Non Smoker Alcohol Misuse Screening: Negative Weight: Appropriate Overwei ght continue your current weight loss efforts try to lose 5% of your body weight try to lose 10% of your body weight try to lose 15% of your body weight Physical activity: Need more exercise/physical activity minimum of 10-20 minutes of activity that causes mild breathlessness/day Nutrition: Good Average Refer to attached handout Heart-Healthy Diet: After Your Visit Fall Risk (screened today): Low Refer to attached handout Preventing Falls: After your Visit Vaccines Pneumococcal: Ordered Recommended today Recommended today, but you have declined No further needed Influenza: Your next one in the fall of this year Chronic Disease Risks Stroke: Low Risk Intermediate Risk I have no recommendations Act kevin diagnosis, Continue current treatment plan Heart Attack: Low risk Intermediate Risk I have no recommendations Act kevin diagnosis, Continue current treatment plan Clogging of the Arteries: Low risk Intermediate Risk I have no recommendations Act kevin diagnosis, Continue current treatment plan Diabetes: Low Risk Active diagnosis, Continue current treatment plan Secondary Prevention/Interven tion (detects treatable diseases before they may cause symptoms, disability, or ) Prostate Cancer Screening: No PSA screening necessary Colon Cancer Screening: Colonoscopy Date Screening Last Performed: Eye Disease Screening: No Eye exam necessary Dementia Risk: Low Depression Screening: Negative [email or web address] Not available 12/10/2023 15:25:38 04/08/2024 [id number] [facility] Not available 04/08/2024 09:48:43 Reason for Referral None Reported. Results Created Date Observation Date Name Description Value Unit Range Abnormal Flag Note LastModifiedBy Organization Detail LastModifiedTime 04/04/19 24 04/03/2023 CT, angio gram, chest , w/o contr ast No observ ation record ed. [email or web address] 2023 09:04:11 04/04/19 24 04/03/2023 [...] Organization Details Recorded Time Polyp of colon 44488756 Active 2022 Leann Oneill MD [address], [place], [address] , [facility] [employer] 3 12:56:21 Acute sinusiti s 92118369 Active 2022 Libra Blas LPN [facility], [employer] [facility] 3 17:08:12 Melena 1025418 Active 2022 Leann Oneill MD [address], [address], [place], [address] , [facility] 3 14:26:40 Blood in urine 24800916 Active 2022 Leann Oneill MD [address], [address], [place], [address] , [facility] 3 14:27:23 Intersti tial lung disease 490477406 Active 2022 Leann Oneill MD [address], [place], [address] , [facility] 3 14:32:34 Mass of subcutan eous tissue of toe of left foot 85002217641 140479 Active 2023 He Mccormick DPM [address], [address], [place], [address] , [facility] 4 11:19:16 History of malignan t neoplasm of skin 781358759 Active 2023 He Mccormick DPM [address], [place], [address] , [facility] 4 11:19:52 Vasculit is 22162542 Active 2023 Leann Oneill MD [address], [address], [place], [address] , [facility] 4 12:34:40 Sinusiti s 72256624 Active 2023 Rosa Walter MA null, [facility] 4 11:15:03 Deep venous thrombos is 191380460 Active 2020 DEVEN Torres null, [facility] 3 12:27:50 Abnormal testoste lizzy 446105714 Active could not afford medicine DEVEN Torres, [facility] 3 12:27:32 Testoste lizzy level below referenc e range 524648945 Completed 202112/06/2022 DEVEN Torres, [facility] 3 12:28:40 External hordeolu m 9054434 Active Not Available [facility] 3 04:52:03 Hearing loss 26350493 Active 2021 Sarah groves RMA null, [place] [facility] 3 12:27:57 Acute sinusiti s 21326552 Completed 202112/06/2022 Libra Blas STORE OPERATIONS SPECIALIST null, [place] [facility] 3 17:08:12 Backache 591901321 Completed 202012/06/2022 Sarah groves RMA null, [place] [facility] 3 12:27:28 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 Not Available [facility] 3 04:52:03 Osteoart hritis of knee 039743239 Active Not Available [facility] 3 04:52:03 Edema 537750716 Completed 202012/06/2022 Sarah groves, RMA null, [place] [facility] 3 12:27:45 Anemia 875002406 Active 2019 Not Available [facility] 3 04:52:03 Eruption 305038544 Completed Not Available [facility] 3 04:52:04 Low back pain 836625083 Completed Not Available [facility] 3 04:52:04 Chest pain 61371599 Completed 202012/06/2022 Sarah groves RMA null, [place] [facility] 3 12:27:25 Otitis externa 9568402 Completed Not Available [facility] 3 04:52:04 Malignan t neoplasm of skin 672602577 Active on lip, no recurren ce, dr whelan Not Available [facility] 3 04:52:04 Neuropat hy 440076483 Active Sarah groves RMA null, [place] [facility] 3 12:28:38 Osteoart hritis 319719538 Completed 12/06/2022 Sarah groves RMA null, [place] [facility] [place] [facility] 3 12:28:43 Obesity 102181317 Active Not Available [facility] 3 04:52:04 Cough 02391623 Completed 202112/06/2022 Sarah groves RMA null, [place] [facility] 3 12:27:23 Ulcer of duodenum 10732462 Active 2020 Not Available [facility] 3 04:52:05 Acute upper respirat ory infectio n 83888511 Completed 202112/06/2022 Sarah groves RMA null, [place] [facility] 3 12:27:19 Hyperlip idemia 42436823 Active Not Available [facility] 3 04:52:05 [facility] hyperten mara 38849745 Active Not Available [facility] 3 04:52:05 Otitis media 22217954 Completed Not Available [facility] 3 04:52:05 Sleep apnea 37504769 Active cpap Not Available [facility] 3 04:52:05 Ex-smoke r 8708202 Active quit 2010 Sarah groves RMA null, [place] [facility] [place] [facility] 3 12:27:44 Erectile dysfunct ion 821008176 Active 2021 Sarah groves RMA null, [place] [facility] [place] [facility] 3 12:27:37 Kidney disease 68876006 Active 2020 Sarah groves RMA null, [place] [facility] [place] [facility] 3 12:27:52 Notes:Medical History: Bilat eral hearing [...] 2020 Colonoscopy with polypectomy 2021 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 Procedures Surgical History Date Name Laterality Status Provider Name and Address Organization Details Recorded Time 4 Medicare Wellness CPT Code, subsequent completed Debbie Sepulveda RN [facility] 12/10/2023 12:53:31 4 Advanced Care Planning completed Debbie Sepulveda RN [facility] 12/10/2023 14:58:54 3 Medicare Wellness CPT Code, subsequent completed Umm Regan RN [facility] 12/06/2022 12:58:58 other completed Not Available [facility] 03/2022 04:43:13 Imaging Results Imaging Date Name Status LastModified by Organiz ation Details LastModified Time 04/03/2023 CT, angiogram, chest, w/o contrast completed [facility] Information not available 04/09/2023 09:04:11 04/03/2023 CT, abdomen + pelvis, w/o contrast completed [facility] Information not available 04/09/2023 09:04:11 10/18/2021 colonoscopy [...] times a day PRN by oral route. 05/20 completed Not Available Not Available Not Available sulfamethox azole 400 mg-trimetho prim 80 mg [...] take as directed on prepackag ed rx 05/20 completed Not Available Not Available Not Available prednisone 20 mg tablet TAKE 2 TABLETS [...] 1 CAPSULE BY MOUTH ONCE A WEEK 05/20 completed Not Available Not Available Not Available irbesartan 150 mg tablet Take 1 [...] propionate 50 mcg/actuati on nasal spray,suspe nsion [place] 2 sprays every day by intranasa l [...] 1 CAPSULE BY MOUTH THREE TIMES DAILY 2024 active Not Available Not Available Not [...] Updated DateTime 4 165.1 cm 37.8 kg/m2 660555. 47 g 95 % 95 % 60 /min 97.9 [degF] 122 mm[Hg] 70 mm[Hg] Roxana Browning CMA [facility] 4 12:03:25 Date Recorded Body height Body mass index (BMI) Body weight Heart rate Respiratory rate Oxygen saturation Oxygen saturation in Arterial blood by Pulse oximetry Provider Name and Address Organization Details Last Updated DateTime 4 165.1 cm 37.8 kg/m2 457642. 47 g 87 /min 14 /min 98 % 98 % Wen Frank [facility] 4 09:57:22 Date Recorded Body height Body mass index (BMI) Body weight Body temperature Heart rate Oxygen saturation Oxygen saturation in Arterial blood by Pulse oximetry Systolic blood pressure Diastolic blood pressure Provider Name and Address Organization Details Last Updated DateTime 4 165.1 cm 38.9 kg/m2 964216. 61 g 97.9 [degF] 86 /min 98 % 98 % 140 mm[Hg] 82 mm[Hg] Janey Ulrich CMA [facility] [employer] 4 12:11:24 Date Recorded Body height Body mass index (BMI) Body weight Body temperature Heart rate Oxygen saturation Oxygen saturation in Arterial blood by Pulse oximetry Systolic blood pressure Diastolic blood pressure Provider Name and Address Organization Details Last Updated DateTime 4 165.1 cm 39.1 kg/m2 902892. 21 g 97.7 [degF] 73 /min 96 % 96 % 140 mm[Hg] 60 mm[Hg] DEVEN Salgado [facility] [employer] [facility] 4 11:56:23 Date Recorded Pain severity - 0-10 verbal numeric rating [Score] - Reported Provider Name and Address Organization Details Last Updated DateTime 12/10/2023 6 Debbie Sepulveda RN [facility] [employer] [facility] 12/10/2023 14:54:48 Date Recorded Body weight Body temperature Oxygen saturation Oxygen saturation in Arterial blood by Pulse oximetry Heart rate Systolic blood pressure Diastolic blood pressure Provider Name and Address Organization Details Last Updated DateTime 5 031085. 61 g 97.4 [degF] 94 % 94 % 88 /min 138 mm[Hg] 62 mm[Hg] Marga pearson [facility] [employer] [facility] 5 09:18:42 Social History Question Answer Notes LastModified by Organization Details LastModified Time Tobacco Smoking Status Former Smoker Quit in 2003 Debbie Sepulveda RN [facility] 12/10/2023 12:57:32 Do You Have An Advance Directive? No Paperwork Given 12/10/2023 [email or web address] Information not available 12/10/2023 What Is Your Level Of Alcohol Consumption? None [email or web address] Information not available 12/10/2023 Are You Blind Or Do You Have Difficulty Seeing? No MIGRATION.030 [id number] Information not available 05/29/2022 Is Blood Transfusion Acceptable In An Emergency? Yes [email or web address] Information not available 12/10/2023 What Is Your Level Of Caffeine Consumption? Occasional MIGRATION.030 [id number] Information not available 05/29/2022 How Much Tobacco Do You Chew? None MIGRATION.030 114495 Information not available 05/29/2022 In The 14 Days Before Symptom Onset, Have You Had Close Contact With A Laboratory-conf irmed COVID-19 While That Case Was Ill? No Not Applicable [email or web address] Information not available 12/10/2023 In The 14 Days Before Symptom Onset, Have You Had Close Contact With A Person Who Is Under Investigation For COVID-19 While That Person Was Ill? No Not Applicable [email or web address] Information not available 12/10/2023 Are You Currently Employed? No [email or web address] Information not available 12/10/2023 Are You Deaf Or Do You Have Serious Difficulty Hearing? Yes Bilateral Hearing Aids [email or web address] Information not available 12/10/2023 What Type Of Diet Are You Following? REGULAR MIGRATION.030550055 Information not available 05/29/2022 Which Illicit Or Recreational Drugs Have You Used? None MIGRATION.030 519930 Information not available 05/29/2022 What Is The Highest Grade Or Level Of School You Have Completed Or The Highest Degree You Have Received? [id number] [email or web address] Information not available 12/10/2023 Do You Have An Electrostatic Air Filter? 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 0 [email or web address] Information not available 12/10/2023 Have There Been Any Changes To Your Family Or Social Situation? No MIGRATION.030 624699 Information not available 05/29/2022 What Is The Fluoride Status Of Your Home? Fluoridated MIGRATION.030 262720 Information not available 05/29/2022 When Did You Quit Smoking? 16+yearssincelastc igarette [email or web address] Information not available 12/10/2023 Are There Any Guns Present In Your Home? Yes MIGRATION.0301 [id number] Information not available 05/29/2022 Do You Have A Humidifier? No On The Cpap Machine MIGRATION.0301 239701 Information not available 05/29/2022 Do You Use Insect Repellent Routinely? No [email or web address] Information not available 12/10/2023 Where Do You Live? SingleLevelHouse MIGRATION.0301 622759 Information not available 05/29/2022 Presence Of Domestic Violence No [email or web address] Information not available 12/06/2022 Are You Able To Care For Yourself? Yes [email or web address] Information not available 12/06/2022 Are You Blind Or Do Yo Have Difficulty Seeing? No Information not available 12/06/2022 Are You Deaf Or Do You Have Serious Difficulty Hearing? No [email or web address] Information not available 12/06/2022 General Stress Level? Moderate [email or web address] Information not available 12/10/2023 Live Alone Of With Others? With Others [email or web address] Information not available 12/06/2022 Do You Have A Medical Power Of Marketing Area Manager? No [email or web address] Information not available 12/10/2023 Do You Have Moisture Problems In Your Home? No MIGRATION.0301 723900 Information not available 05/29/2022 What Was The Date Of Your Most Recent Tobacco Screening? 12/10/2023 [email or web address] Information not available 12/10/2023 How Many Children Do You Have? 4 [email or web address] Information not available 12/10/2023 What Is Your Current Pack Years? 30ormorepackyears [email or web address] Information not available 12/10/2023 Do You Have Any Pets? Yes MIGRATION.0301 159230 Information not available 05/29/2022 Do You Use Protection During Sex? No [email or web address] Information not available 12/10/2023 What Is Your Relationship Status? [email or web address] Information not available 12/10/2023 Do You Use Your Seat Belt Or Car Seat Routinely? Yes MIGRATION.0301 [id number] Information not available 05/29/2022 Are You Sexually Active? Yes [email or web address] Information not available 12/10/2023 Do You Have Smoke And Carbon Monoxide Detectors In Your Home? Yes MIGRATION.0301 088451 Information not available 05/29/2022 At What Age Did You Start Smoking Tobacco? 18 MIGRATION.0301 296503 Information not available 05/29/2022 Are You Passively Exposed To Smoke? No MIGRATION.0301 968774 Information not available 05/29/2022 Are There Any Smokers In Your House? No MIGRATION.0301 108275 Information not available 05/29/2022 How Much Tobacco Do You Smoke? 1 PPD MIGRATION.0301 932633 Information not available 05/29/2022 What Types Of Sporting Activities Do You Participate In? None [email or web address] Information not available 12/10/2023 Do You Feel Stressed (tense, Restless, Nervous, Or Anxious, Or Unable To Sleep At Night)? [id number] [email or web address] Information not available 12/10/2023 Do You Use Any Illicit Or Recreational Drugs? No MIGRATION.0301 668717 Information not available 05/29/2022 Do You Use Sunscreen Routinely? No MIGRATION.0301 993677 Information not available 05/29/2022 Has Tobacco Cessation Counseling Been Provided? No [email or web address] Information not available 12/10/2023 How Many Years Have You Smoked Tobacco? 30 [email or web address] Information not available 12/10/2023 Have You Recently Traveled Abroad? No MIGRATION.0301 410453 Information not available 05/29/2022 Do You Have Any Dietary Restrictions? No MIGRATION.0301 483650 Information not available 05/29/2022 Do You Or Have You Ever Used Any Other Forms Of Tobacco Or Nicotine? No MIGRATION.0301 406869 Information not available 05/29/2022 Sex: Male Functional Status Question Answer Note LastModified by Organizat ion Details LastModified Time Do you have difficulty walking or climbing stairs? No MIGRATION.9054699 026 Information not available 05/29/2022 Do you have transportation difficulties? No MIGRATION.2081481 026 Information not available 05/29/2022 Are you able to walk? YESWOREST MIGRATION.3346799 026 Information not available 05/29/2022 Do you have difficulty doing errands alone? No MIGRATION.7253836 026 Information not available 05/29/2022 Are you able to care for yourself? Yes MIGRATION.4112128 026 Information not available 05/29/2022 Do you have difficulty dressing or bathing? No MIGRATION.6170659 026 Information not available 05/29/2022 What is your exercise level? None MIGRATION.9787362 026 Information not available 05/29/2022 Mental Status Question Answer Note LastModified by Organizat ion Details LastModified Time Do you have difficulty concentrating, remembering or making decisions? No MIGRATION.[id number] 6 Information not available 05/29/2022 Family History Relationship Description Onset Age of this Age Resolved Age Notes LastModified by Organization Details LastModified Time Father Essential hypertension MIGRATION.438 [id number] Not available 05/29/2022 04:43:16 Sister Diabetes mellitus MIGRATION.913 [id number] Not available 05/29/2022 04:43:16 Brother Small cell carcinoma of lung 59 MIGRATION.457 4364839 Not available 05/29/2022 04:43:16 Medical History Condition Response HYPERTENSION Y HIGH CHOLESTEROL / HYPERLIPIDEMIA Y Immunizations Vaccine Type Date Status Note Provider Nam e and Address Organization Details Recorded Time COVID-19, mRNA, LNP-S, PF, 100 mcg/0.5mL dose or 50 mcg/0.25mL dose 1 completed Not Available [facility] 05/29/2022 05:05:37 COVID-19, mRNA, LNP-S, PF, 100 mcg/0.5mL dose or 50 mcg/0.25mL dose 1 completed Not Available [facility] 05/29/2022 05:05:38 Influenza, split virus, quadrivalent, preservative 1 completed Not Available [facility] 05/29/2022 05:05:38 Influenza, split virus, quadrivalent, PF 9 completed Not Available [facility] 05/29/2022 05:05:38 Influenza, high-dose, trivalent, PF 8 completed Not Available [facility] 05/29/2022 05:05:38 Influenza, split virus, trivalent, PF 4 completed Not Available [facility] 05/29/2022 05:05:38 Past Encounters Encounter ID Performer Location Encounter Start Date Encounter Closed Date Diagnosis/Indication Diagnosis SNOMED-CT Code Diagnosis ICD10 Code Diagnosis Note [id number] [facility] Internal Med [facility] [address] [facility] [place] [address] 07/25/2020 00:00:00 07/25/2020 10:30:24 [id number] [facility] [address] [place] [address] 11/21/2020 00:00:00 11/21/2020 11:24:02 [id number] [facility] [address] [place] [address] 12/07/2020 00:00:00 12/07/2020 08:29:49 [id number] [facility] [address] [place] [id number] 02/01/2021 00:00:00 02/01/2021 09:16:01 [id number] [facility] Internal Med [place] [id number] [facility] [place] [address] 03/07/2021 00:00:00 03/07/2021 11:59:20 [id number] [facility] Internal Med [id number] [facility] [place] [address] 07/06/2021 00:00:00 07/06/2021 13:14:02 [id number] [facility] [address] [place] [id number] 02/05/2022 00:00:00 02/05/2022 11:31:08 [id number] Leann Oneill MD [facility] Internal Med [address] [facility] [place] [address] 12/06/2022 11:40:07 12/06/2022 13:05:12 Essential hypertension 90244836 I10 watch Hyperlipidemia 66569488 E78.5 labs Obesity 887202714 E66.9 advised to lose more Osteoarthr itis of knee 336356324 M17.9 otc Anemia 089489064 D64.9 stable Ex-smoker 7762201 Z87.89 1 Deep venou s thrombosis 343349806 I82.409 on [facility] Abnormal testosterone 13 6652762 R94.7 Kidney disease 83673441 N08 seeing nephrology Sleep apnea 31489163 G47 .33 cpap Neuropathy 120665675 G62 .9 start pregabalin Adult heal th examination 820464464 Z00.00 repeat colonoscop y, scheduled soon due to polyppsa- 02/17FLU- OV ID Vacc- Has had all 3 vacc Screening for malignant neoplasm of prostate 251418892 Z12.5 Polyp of colon 02293378 K63.5 gets colonoscop y every year Screening for disorder 719863403 Z13.9 [id number] Leann Oneill MD [facility] [address] [place] [address] 02/17/2023 14:01:56 02/17/2023 14:36:53 Melena [id number] K92.1 improved Blood in urine 86166083 R31.9 to get cysto Kidney disease 90559537 N08 seen nephrology , cr now baseline Interstiti al lung disease 282677837 J84.9 he has appt to f/u with pulm, no symptoms [id number] Leann Oneill MD [facility] [address] [place] [address] 04/08/2023 11:53:16 04/08/2023 12:38:50 Essential hypertension 23702759 I10 under control Hyperlipidemia 43221204 E78.5 will get labs reports Obesity 749464481 E66.9 advised to lose Osteoarthr itis of knee 683346135 M17.9 otc Anemia 130235926 D64.9 stable Ex-smoker 0089749 Z87.89 1 Deep venou s thrombosis 841582652 I82.409 on MEDS FOR LIFE Abnormal testosterone 13 6291449 R94.7 get labs reports Kidney disease 50590337 N08 seeing nephrology Sleep apnea 03353867 G47 .33 cpap Neuropathy 451140006 G62 .9 pregabalin helps Adult heal th examination 099144331 Z00.00 repeat colonoscop y, scheduled soon due to polyppsa- 2022FLU- 1COV ID Vacc- Has had all 3 vacc Polyp of colon 53088884 K63.5 gets colonoscop y every year [id number] He Mccormick DPM [facility] [place] [address], [address] [place] [address] 05/27/2023 09:54:02 05/27/2023 16:57:06 Mass of subcutaneous tissue of toe of left foot 5501377364 2616010 R22.42 left great toefollow up with pcp or oncologyre fused surgery where I have privileges recommend immediate follow up History of malignant neoplasm of skin 296758344 Z85.828 squamous cell on lip [id number] Leann Oneill MD [facility] [address] [place] [address] 08/05/2023 12:06:26 08/05/2023 12:39:57 Essential hypertension 15136031 I10 under control Hyperlipidemia 06810224 E78.5 under control Obesity 084776691 E66.9 advised to lose Osteoarthr itis of knee 829217503 M17.9 otc Anemia 581375324 D64.9 stable Ex-smoker 7924603 Z87.89 1 Deep venou s thrombosis 439963198 I82.409 meds for life Abnormal testosterone 13 6258912 R94.7 get labs reports Kidney disease 24203308 N08 seeing nephrology Sleep apnea 90859369 G47 .33 cpap Neuropathy 427983477 G62 .9 pregabalin helps Adult heal th examination 610613273 Z00.00 repeat colonoscop y, scheduled soon due to polyppsa- - OV ID Vacc- Has had all 3 vacc Polyp of colon 01778267 K63.5 gets colonoscop y Interstiti al lung disease 879958529 J84.9 autoimmune , on meds, seeing pulm at [facility] 51100896 I77. 6 on cytoxan [id number] Leann Oneill MD [facility] [address] [place] [address] 12/10/2023 11:50:33 12/10/2023 13:11:37 Essential hypertension 86713277 I10 watch Hyperlipidemia 36443097 E78.5 under control Obesity 108724618 E66.9 advised to lose Osteoarthr itis of knee 059976978 M17.9 otc Anemia 928872111 D64.9 stable Ex-smoker 5700091 Z87.89 1 Deep venou s thrombosis 913009347 I82.409 meds for life, Eliquis Abnormal testosterone 13 6229197 R94.7 Kidney disease 66106173 N08 seeing nephrology Sleep apnea 65766718 G47 .33 cpap Neuropathy 713181441 G62 .9 pregabalin helps some Adult heal th examination 839015032 Z00.00 repeat colonoscop y,PSA- 2022FLU1COV ID Vacc- Has had all 3 vacc Polyp of colon 57123932 K63.5 needs colonoscop y , not sure when Interstiti al lung disease 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 6 on cytoxan Screening for malignant neoplasm of prostate 776952497 Z12.5 Screening for disorder 718030891 Z13.9 [id number] Leann Oneill MD [facility] [address] [place] [address] 04/08/2024 09:06:19 04/08/2024 09:55:47 Essential hypertension 68237271 I10 under control Hyperlipidemia 08594513 E78.5 under control Obesity 012960104 E66.9 advised to lose Osteoarthr itis of knee 412121524 M17.9 otc Anemia 872102071 D64.9 stable Ex-smoker 4780831 Z87.89 1 Deep venou s thrombosis 989321955 I82.409 meds for life, Eliquis Abnormal testosterone 13 1364951 R94.7 Kidney disease 34430142 N08 seeing nephrology Sleep apnea 66228331 G47 .33 cpap Neuropathy 350569801 G62 .9 pregabalin helps Adult heal th examination 109202699 Z00.00 colonoscop y 2022 per [facility]PSA- 2022FLU4COV ID Vacc- Has had all 3 vacc Polyp of colon 58078567 K63.5 needs colonoscop y , Interstiti al lung disease 869521616 J84.9 autoimmune , on meds, seeing pulm at [facility] 74134700 I77. 6 on cytoxan Erectile dysfunction 860 474318 F52.21 Health Concerns Section Related Observation LastModified by Organization Detai ls LastModified Time None Recorded Concern Status LastModified by Organization Details LastModified Time None Recorded Advance Directives Directive N: paperwork given 12/10/2023 Payers Encounter Date Sequence Insurance Name Policy Number Policy Virk Covered Member ID Virk Member ID Guarantor Name 04/08/2023 1 [place] Britton R Morales Sr [id number] [place]on R [place] 04/08/2023 2 [employer] [place] ([place]IC[place]PP[place] Britton R Morales [id number] Britton R Morales 05/27/2023 1 [place] Britton R Morales Sr [id number] Britton R [place] 05/27/2023 2 [employer] [place] Britton R Morales [id number] Britton R Morales 08/05/2023 1 [place] Britton R Morales Sr [id number] Britton R [place] 08/05/2023 2 [employer] [place]on R [place] [id number] Britton R [place] 12/10/2023 1 [place]on R [place] Sr [id number] Britton R [place] 12/10/2023 2 [employer] [place]) Britton R [place] [id number] Britton R Morales 04/08/2024 1 [place] Britton R Morales Sr [id number] Britton R [place]ales 04/08/2024 2 [employer] [place] (MEDIC[place]) Britton R [place] [id number] Britton R [place] Notes Date Note Type Note Provider Name [...] mild arthritis Leann Oneill MD [address], [address], [place], [address], [place] 04/08/2023 12:38:32 05/27/2023 text/html Patient is a [...] other complaints. He Mccormick DPM [address], [address], [place], [address], [place] 05/27/2023 13:49:37 08/05/2023 text/html Here today for [...] started on meds Leann Oneill MD [address] [facility], [facility] [address], [place], [address], [place] [facility] 08/05/2023 12:38:15 12/10/2023 text/html Here today for [...] showed mild arthritis Leann Oneill MD [address] [facility], [facility] [address], [place], [address], [place] [facility] [employer] NEXT 12/10/2023 17:41:09 04/08/2024 text/html Here today for [...] showed mild arthritis Leann Oneill MD [address] [facility], [address], [place], [address], [place] [facility] [employer] NEXT 04/08/2024 09:49:23
--- OUTSIDE RECORDS SUMMARY | 2024-06-02 09:05 | XMS_ITS | Encounter Summary ---
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
--- OUTSIDE RECORDS SUMMARY | 2024-06-02 09:05 | XMS_ITS | Encounter Summary ---
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
--- OUTSIDE RECORDS SUMMARY | 2024-06-02 09:05 | XMS_ITS | Encounter Summary ---
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
--- OUTSIDE RECORDS SUMMARY | 2024-06-02 09:05 | XMS_ITS | Referral Summary ---
Author Organization [facility] [address] Address [address] [place] [address] Care Team Providers Care Telephone Directory Distributor Driver Name Role Phone Scott Oneill MD Primary Care Provider [phone] Encounters Date Type Department Care Team Description 04/20/2024 Orders Only [facility] Rheumatology [address] [facility] [address] [place] [address] [place] [address] Tiffanie Weiss MD 04/16/2024 Documentation [facility] Pulmonary [address] [place] [address] [place] [address] Marce Bernal MD Labs Only 04/15/2024 Telephone [facility] Pulmonary [address] [place] [address] [place] [address] Margret Cobb CMA 04/15/2024 Orders Only [facility] Pulmonary [address] [place] [address] [place] [address] Polly Paulino RN 04/13/2024 Orders Only [facility] Scanning, Provider 04/13/2024 Orders Only [facility] Scanning, Provider 03/17/2024 3:30 PM ELECTRICIAN SHOP Office Visit [facility] Rheumatology [address] [facility] [address] [place] [address] [place] [address] Popping of left knee joint (Primary Dx); Chronic SI joint pain; Low back pain, unspecified back pain laterality, unspecified chronicity, unspecified whether sciatica present 03/05/2024 Documentation [facility] Pulmonary [address] [facility] [address]th [place] [address] [place] [address] Marce Bernal MD Labs Only 03/05/2024 Telephone [facility] Pulmonary [address] [facility] [address] [place] [address] [place] [address] Margret Cobb CMA from Last 3 Months Allergies No known [...] Date Resolved Date Angina pectoris syndrome 05/04/2020 Social History Tobacco Use Types Packs/Day Years [...] on file Legal Sex Male 1:23 AM ELECTRICIAN SHOP Gender Identity Male 12/24/2023 11:25 AM CDT Sexual Orientation Straight 12/24/2023 11 :25 AM CDT 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 Start Date Job End Date 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, 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, 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 Not on file Not on file Last Filed Vital Signs Vital Sign Reading Time Taken Comments Blood Pressure 165/75 03/17/2024 3:28 PM ELECTRICIAN SHOP Pulse 56 03/17/2024 3:28 PM ELECTRICIAN SHOP Temperature 36.6 C (97.8 F) 03/17/2024 3:28 PM ELECTRICIAN SHOP Respiratory Rate 18 02/05/2024 2:17 PM ELECTRICIAN SHOP Oxygen Saturation 97% 03/17/2024 3:28 PM ELECTRICIAN SHOP Inhaled Oxygen Concentration - - Weight 105.6 kg (232 lb 12.8 oz) 03/17/2024 3:28 PM ELECTRICIAN SHOP Height 166.4 cm (5' 5.5 ) 03/17/2024 3:28 PM ELECTRICIAN SHOP Body Mass Index 38.15 03/17/2024 3:28 PM ELECTRICIAN SHOP Plan of Treatment Not on file Procedures Procedure Name Priority Date/Time Associated Diagnosis Comments CBC WITH AUTO DIFFERENTIAL Routine 04/13/2024 3:43 PM ELECTRICIAN SHOP SCAN - LABS 04/13/2024 SCAN - LABS 04/13/2024 ERYTHROCYTE SEDIMENTATION RATE Routine 04/13/2024 Interstitial lung disease (HCC) High risk medication use COMPREHENSIVE METABOLIC PANEL Routine 04/13/2024 Interstitial lung disease (HCC) High risk medication use from Last 3 Months Results * (ABNORMAL) CBC with auto differential (04/13/2024 3:43 PM ELECTRICIAN SHOP) Pathologist [facility] SCRIBED WBC 5.3 4.5 - 10.0 k/cumm [...] * (ABNORMAL) Erythrocyte sedimentation rate (04/13/2024) Pathologist [facility] SCRIBED ESR 115(A) 0 - 20 mm/hr EXTERNAL LAB Blood 04/13/2024 Tiffanie Weiss MD LAB BLOOD ORDERABLES Final Resul t EXTERNAL LAB * (ABNORMAL) Comprehensive metabolic panel (04/13/2024) Pathologist [facility] SCRIBED Creatinine 2.50(A) 0.7 - 1.3 mg/dl EXTERNAL LAB SCRIBED Bilirubin 0.8 0.2 - 1.3 mg/dl EXTERNAL LAB SCRIBED Alkaline Phosphatase 90 38 - 126 Units/L EXTERNAL LAB SCRIBED Alanine Transaminase (ALT) 14 6 - 50 Units/L EXTERNAL LAB SCRIBED Aspartate Transaminase (AST) 17 17 - 59 Units/L EXTERNAL LAB Blood 04/13/2024 us Tiffanie Weiss MD LAB BLOOD ORDERABLES Final Resul t EXTERNAL LAB from Last 3 Months Insurance MEDICARE MEDICARE [facility] MEDICARE [employer] [place] [employer] [place] MEDICARE Advance Directives For more information, please contact: [phone] * Full Code (Latest Code Status on File) Date Activated Date Inactivated Comments 07/17/2020 8:05 PM 07/19/2020 7:41 PM * Full Code Date Activated Date Inactivated Comments 06/08/2020 6:02 PM 06/15/2020 7:20 PM Healthcare Agents on File Name Relationship Healthcare Agent Relationship Communication Shyann Nielsen Spouse First Alternat e Health Care Agent Care Teams Telephone Directory Distributor Driver Relationship Specialty Start Date End Date Scott Oneill MD PCP - General Internal Medicine 04/27/20
--- OUTSIDE RECORDS SUMMARY | 2024-06-02 09:05 | XMS_ITS | Continuity of Care Document ---
Author Organization [facility] Address [address] [place] [address] Phone Care Team Providers Care Teacher Cclc Name Role Phone Renny Garcia Unavailable Unavailable Advance Directives Directive Yes / No Effective Date File Name No Information Encounters Encounter Description Practice Location Reason(s) For Visit Diagnoses Date Provider Providers Copied on Encounter [facility], [address], [place], [place], [id number], [place] tel:[phone] [facility] [place] No Information Dec-0 6-200 [address]. [address] [facility] [address] [place] , [address], [place], [address], [place]. tel:[phone] Family History Family Member Type Diagnosis Age At Onset No Information Payers Payer name Insurance type Covered green party ID Authoriza tion(s) [place] [id number] Social History Type Description Quantity Date Captured [...]
--- OUTSIDE RECORDS SUMMARY | 2024-06-02 09:05 | XMS_ITS | Clinical Summary ---
Author Organization [facility] Address [address] [place] [address] Care Team Providers Care Industrial Hygiene Engineer Name Role Phone Cee Rios [facility] Primary Care Prov ider Allergies No known [...] daily. 2 Active vitamin D2, ergocalciferol , 77830 UNITS capsule Take 1 capsule (50,000 Units [...] (01/30/2023): Added automatically from request for surgery [id number] Personal history of colonic polyps 01/30/2023 Overview (01/30/2023): Added automatically from request for surgery [id number] Positive colorectal cancer screening using Colog uard test 10/08/2021 Overview (10/08/2021): Added automatically from request for surgery [id number] Family History Medical History Relation Comments cancer,small [...] Comments Blood Pressure 128/53 06/02/2023 9:55 AM MOLASSES COLORING OPERATOR Pulse 63 06/02/2023 9:33 AM MOLASSES COLORING OPERATOR Temperature 36 C (96.8 F) 06/02/2023 9:26 AM MOLASSES COLORING OPERATOR Respiratory Rate 20 06/02/2023 8:33 AM MOLASSES COLORING OPERATOR Oxygen Saturation 97% 06/02/2023 10:00 AM MOLASSES COLORING OPERATOR Inhaled Oxygen Concentration - - Weight 101.2 kg (223 lb) 05/23/2023 2:05 PM MOLASSES COLORING OPERATOR Height 166.4 cm (5' 5.5 ) 05/23/2023 2:05 PM MOLASSES COLORING OPERATOR Body Mass Index 36.54 05/23/2023 2:05 PM MOLASSES COLORING OPERATOR Plan of Treatment Health Maintenance Due Date Last Done Comments Hepatitis C 02/14/1972 DTaP, Tdap and Td Vaccines (1 - Tdap) 1973 Zoster Vaccines (1 of 2) 02/14/2004 AAA SCREENING 2019 Annual Medicare Wellness Visit 2019 Pneumococcal Vaccine: 65+ Years (2 of 2 - PPSV23 or PCV20) 02/09/2022 02/09/2021, 05/01/2017 COVID-19 Vaccine ( - season) 2023 02/09/2021, 07/11/2020, 05/13/2020 Influenza Adult (#1) 2023 12/29/2021, 02/21/2021, 05/13/2020, Additional history exists PHQ-2 (Physician [place]) 01/30/2024 01/29/2023 PHQ-2 (Physician [place]) 03/31/2024 01/29/2023 RSV Immunization or 60+ Years [...] Recently Relevant to Health Maintenance Insurance MEDICARE [facility] Care Teams Industrial Hygiene Engineer Relationship Specialty Start Date End Date Cee Rios FNP [address] [place] [address] PCP - General NURSE PRACTITIONER 12/10/22
[2024-06-02 09:27] LABS: Hemoglobin 11.3 g/dL (14.0-18.0); Mean Corpuscular HGB Conc 31.4 g/dl (32-36); Mean Corpuscular Hemoglobin 28.8 pg (26-34); Mean Corpuscular Volume 91.6 fl (80-100); Platelet Count Result 143 k/mm3 (150-375); Red Blood Count 3.93 M/mm3 (4.6-6.20); Red Cell Distribution Width 14.8 % (11.5-14.5); White Blood Count 6.5 K/mm3 (4.5-10.0)
[2024-06-02 09:30] LABS: Add Urine Microscopic? NO; Appearance Urine Clear (Clear); Bilirubin Urine Negative (Negative); Blood Urine Negative (Negative); Color Urine Yellow (Yellow); Glucose Urine UA Negative (Negative); Ketones Urine Negative (Negative); Leukocyte Esterase Ur Negative LEU/UL (Negative); Nitrate Urine Negative (Negative); Protein Urine Negative (Negative); Specific Grav Ur 1.013 (1.001-1.035); Urobilinogen Urine 0.2 mg/dL (<2.0)
[2024-06-02 09:42] LABS: Albumin Level 4.4 g/dL (3.5-5.1); Anion Gap 16 mmol/L (4-12); Blood Urea Nitrogen 46 mg/dL (9-20); Calcium 8.6 mg/dL (8.4-10.2); Carbon Dioxide 16 mmol/L (22-30); Chloride 108 mmol/L (98-107); Estimated Glomerular Filt Rate 27; Glucose 94 mg/dL (65-110); Potassium 4.6 mmol/L (3.4-5.0); Sodium 140 mmol/L (137-145)
[2024-06-02 09:50] LABS: Parathyroid Intact 159.2 pg/mL (14.5-75.2)
[2024-06-02 09:58] LABS: Creatinine Urine 92.4 mg/dL; Total Protein Urine Random 8 mg/dL; Ur Ttl Prot Creatinine Ratio 0.09 mg/mg (0-0.20)
[2024-06-05 06:24] LABS: ANCA Screen NEGATIVE (NEGATIVE)
== END 2024-06-02 08:40 | disposition home or self-care (01) ==
PROVIDERS: PCP Internal Medicine; Visit Provider Internal Medicine Nephrology
DX: N18.4 Chronic kidney disease, stage 4 (severe) (principal); J84.9 Interstitial pulmonary disease, unspecified; M31.30 Wegener's granulomatosis without renal involvement; Z79.899 Other long term (current) drug therapy
CPT/HCPCS: 36415; 80069; 81003; 82570; 83970; 84156; 85027; 86036

== ENCOUNTER 2024-07-15 12:08 | Outpatient (CLI) | payer MEDICARE, OTHER, SELFPAY ==
--- OUTSIDE RECORDS SUMMARY | 2024-07-15 12:36 | XMS_ITS | Encounter Summary ---
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
--- OUTSIDE RECORDS SUMMARY | 2024-07-15 12:36 | XMS_ITS | Encounter Summary ---
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
--- OUTSIDE RECORDS SUMMARY | 2024-07-15 12:36 | XMS_ITS | Encounter Summary ---
Author Organization [facility] Address [address] [place] [address] Phone Care Team Providers Care Gas Dispatcher Name Role Phone Scott Oneill MD Primary Care Provider Tavo Mishra MD Unavailable [phone] Gilmer Barnard MD Unavailable [phone] Kev Moser MD Unavailable [phone] Reason for Visit * Reason Comments Medication Refill Encounter Details Date Type Department Care Team (Late st Contact Info) Description 07/01/2023 Refill [facility] [address] [place] [address] Sindi Qiu, REFUND SPECIALIST, MANAGER BALANCE [address] [place] [address] Medication Refill Social History Tobacco [...] file Legal Sex Male 3:42 PM PAPER REELER Gender Identity Not on file Sexual Orientation [...] Care Team (Late st Contact Info) Description 08/04/2024 11:10 AM CDT Lab [facility] [address] [phone] Lab, [facility] 08/04/2024 11:15 AM CDT Office Visit [facility] [address] [phone] Kev Moser MD [address] [place] [phone] 08/04/2024 11:30 AM CDT Clinical Support [facility] [address] [phone] Nurse, [facility] documented as of this encounter Visit Diagnoses Not on filedocumented in this encounter Additional Health Concerns Assessment Noted Time PHQ-9 Depression Total Score: 0 11/25/19 21 11:34 AM CDT documented as of this encounter Care Teams Gas Dispatcher Relationship Specialty Start Date End Date Scott Oneill MD PCP - General Internal Medicine 04/29/17 Tavo Mishra MD [address] [place] [id number] Internal Medicine 04/29/17 Gilmer Barnard MD [address] [place] [address] Consulting Physician Internal Medicine 08/28/17 4 Kev Moser MD [address] [place] [phone] Consulting Physician Oncology 02/09/20 documented as of this encounter
--- OUTSIDE RECORDS SUMMARY | 2024-07-15 12:36 | XMS_ITS | Encounter Summary ---
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
--- OUTSIDE RECORDS SUMMARY | 2024-07-15 12:36 | XMS_ITS | Encounter Summary ---
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
--- OUTSIDE RECORDS SUMMARY | 2024-07-15 12:36 | XMS_ITS | Encounter Summary ---
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
--- OUTSIDE RECORDS SUMMARY | 2024-07-15 12:36 | XMS_ITS | Clinical Summary ---
Author Organization [facility] Address [address] [place] [id number] Phone Care Team Providers Care Roofer Helper Vinyl Coating Name Role Phone Bia Oneill MD Primary Care Provider [phone] Allergies No known active allergies Medications apixaban (ELIQUIS) 5 MG tablet Take 5 mg by mouth 2 times daily 9 Active tadalafil (CIALIS) 20 MG tablet Take 20 mg by mouth 1 (one) time each day if needed 0 Active labetalol (NORMODYNE) 200 MG tablet Take 1 tablet (200 mg total) by mouth 2 (two) times a day 180 tablet 3 1 Active aspirin 81 MG chewable tablet Chew 81 mg 1 (one) time each day Active traMADol (ULTRAM) 50 MG tablet Take 50 mg by mouth 2 (two) times a day if needed 2 Active triamcinolone (KENALOG) 0.1 % cream APPLY CREAM TOPICALLY TO THE AFFECTED AREA(S) TWICE DAILY 2 Active atorvastatin (LIPITOR) 40 MG tablet Take 1 tablet by mouth once daily 90 tablet 2 Active lisinopril (PRINIVIL) 20 MG tablet Take 1 tablet by mouth once daily 90 tablet 2 Active calcium carbonate (TUMS) 500 MG chewable tablet Chew 500 mg in the morning and 500 mg in the evening. Chew with meals. 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 Gastrointestinal hemorrhage 05/10/2017 Nephritic syndrome 05/10/2017 Anemia of chronic renal failure 05/02/2017 Hemolytic anemia 05/02/2017 Essential (primary) hypertension 04/15/2017 Other acute kidney failure 04/04/2017 Microscopic polyangiitis 04/04/2017 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 Immunizations Immunization Administration Dates Next Due Influenza (IM) Preservative [...] at Not on file Legal Sex Male 10:04 AM MST Gender Identity Not on file Sexual Orientation Not on file Last Filed Vital Signs Vital Sign Reading Time Taken Comments Blood Pressure 128/60 02/27/2022 1:41 PM CREDIT OR LOANS OFFICER Pulse 72 02/27/2022 1:41 PM CREDIT OR LOANS OFFICER Temperature 36.7 C (98 F) 02/27/2022 1:41 PM CREDIT OR LOANS OFFICER Respiratory Rate - - Oxygen Saturation - - Inhaled Oxygen Concentration - - Weight 96.2 kg (212 lb) 02/27/2022 1:41 PM CREDIT OR LOANS OFFICER Height 165.1 cm (5' 5 ) 02/27/2022 1:41 PM CREDIT OR LOANS OFFICER Body Mass Index 35.28 02/27/2022 1:41 PM CREDIT OR LOANS OFFICER Plan of Treatment Health Maintenance Due Date Last Done Comments Pneumococcal PPSV23/PCV13 65 + Years / High and Highest Risk (1 of 5 - PCV) 1974 COVID-19 Vaccine (2023-2 5 season) 2023 07/11/2020, 05/13/2020, 05/13/2020 Influenza Vaccine (Season Ended) 2024 12/29/2021, 02/06/2020, 12/27/2019, Additional history exists [facility] [id number] [facility] MEDIC[facility] SUPPLEMENT ANDRES NEUMANN [id number] Care Teams Roofer Helper Vinyl Coating Relationship Specialty Start Date End Date Bia Oneill MD [address] [address] PCP - General Internal Medicine 07/16/18
--- OUTSIDE RECORDS SUMMARY | 2024-07-15 12:36 | XMS_ITS | Encounter Summary ---
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
--- OUTSIDE RECORDS SUMMARY | 2024-07-15 12:36 | XMS_ITS | CONTINUITY OF CARE DOCUMENT ---
Author Name shabbir shea Address Unknown Organization [facility] Address [address] [place] [address] [address] [place] [address] Phone [phone] Care Team Providers Care Cement Worker Name Role Phone Carla HAMMOND, [place] Franz Unavailable [phone] Scott Oneill MD Unavailable Scott Oneill MD Unavailable [phone] INSURANCE PROVIDERS Payer name Policy type / Coverage type [place] red libertarian ID [employer] Commercial insura LEAFER [id number] [place] Medicare [id number]
--- OUTSIDE RECORDS SUMMARY | 2024-07-15 12:36 | XMS_ITS | Clinical Summary ---
Author Organization [facility] Address [address] [address] Phone Care Team Providers Care Associate Creative Director Name Role Phone Scott Oneill MD Primary Care Provider [phone] Tavo Mishra MD Unavailable [phone] Kev Moser MD Unavailable [phone] Allergies No known active allergies Medications Calcium Carb-Cholecalcife rol (CALCIUM 600 + D PO) Take by mouth 2 times daily. Active potassium chloride SA (KLORCON M) 20 MEQ Tablet Controlled Release Take 20 mEq by mouth 2 times daily. Active furosemide (LASIX) 40 MG Tablet Take 40 mg by mouth daily. Active labetalol (NORMODYNE) 200 MG Tablet Take 200 mg by mouth 2 times daily. Active ergocalciferol (VITAMIN D) 18959 UNIT Capsule Take 50,000 Units by mouth once a week. Active cyanocobalamin 1000 MCG Tablet Take 1 tablet by mouth daily 30 Tab 019 Active Additional Information Patient not taking.Reported on 07/07/2024 traMADol (ULTRAM) 50 MG Tablet 0 019 Active tadalafil (CIALIS) 20 MG Tablet TAKE 1 TABLET BY MOUTH ONCE DAILY NEEDED Active sodium bicarbonate 650 MG Tablet Take 650 mg by mouth 2 times daily. 021 Active aspirin EC 81 MG Tablet Delayed Response Take 81 mg by mouth daily. Active pantoprazole (PROTONIX) 40 MG Tablet Delayed Response TAKE 1 TABLET BY MOUTH IN THE MORNING Active pregabalin (LYRICA) 50 MG Capsule Take 50 mg by mouth 3 times daily. 023 Active albuterol 108 (90 Base) MCG/ACT Aerosol [...] daily. Active calcitRIOL (ROCALTROL) 0.25 MCG Capsule 024 Active apixaban (ELIQUIS) 5 MG TabletIndications :History of Thromboembolic Disease Take 1 Tablet by mouth 2 times daily. Indications: History of Disease involving a Thrombosis or an Embolism 025 Active hydroCHLOROthiazi de 25 MG Tablet Take 25 mg by mouth daily. 025 Active SV Iron 325 (65 Fe) MG TabletIndications :Other autoimmune hemolytic anemia,Anemia in stage 3a chronic kidney disease (HCC),Iron deficiency anemia due to sideropenic dysphagia Take 1 tablet by mouth once daily 30 Tablet 025 Active apixaban (ELIQUIS) 5 MG TabletIndications :History of Thromboembolic Disease Take 1 Tablet by mouth 2 times daily. Indications: History of Disease involving a Thrombosis or an Embolism 025 2024 Discontinued(R eorder) SV Iron 325 (65 Fe) MG TabletIndications :Other autoimmune hemolytic anemia,Anemia in stage 3a chronic kidney disease (HCC),Iron deficiency anemia due to sideropenic dysphagia Take 1 tablet by mouth once daily 30 Tablet 025 2024 Discontinued Active Problems Patient Care Coordination No te Formatting of this note migh t be different from the original. 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 marques 05/23/2017 Hypertension Encounters Date Type Department Care Team Description 07/12/2024 Results Follow-Up [facility] [address] [address] Sindi Qiu, SPECIAL EDUCATION CLASSROOM AIDE, POKER MACHINE ATTENDANT 07/12/2024 Refill [facility] [address] [address] Tanvi Tobar, SPECIAL EDUCATION CLASSROOM AIDE, POKER MACHINE ATTENDANT Medication Refill 07/07/2024 11:15 AM CDT Clinical Support [facility] [address] [address] Nurse, Gricelda Lopes Stage 3a chronic kidney disease (HCC) (Primary Dx); Vitamin B 12 deficiency 07/07/2024 11:00 AM CDT Office Visit [facility] [address] [address] Tanvi Tobar APRN, POKER MACHINE ATTENDANT Other autoimmune hemolytic anemia (Primary Dx); Vitamin B 12 deficiency 07/07/2024 10:45 AM CDT Lab [facility] [address] [address] Lab, Gricelda Lopes Other autoimmune hemolytic anemia 07/07/2024 Travel 06/24/2024 9:00 AM CDT Clinical Support [facility] [address] [address] Nurse, Gricelda Lopes Other autoimmune hemolytic anemia (HCC) (Primary Dx) 06/24/2024 Travel 06/23/2024 Telephone [facility] [address] [address] Kev Moser MD Canopy Call / Javid 06/15/2024 Refill [facility] [address] [address] Tanvi Tobar, SPECIAL EDUCATION CLASSROOM AIDE, POKER MACHINE ATTENDANT Medication Refill 06/09/2024 11:30 AM CDT Clinical Support [facility] [address] [address] Nurse, Cc [place] Vitamin B 12 deficiency (Primary Dx) 06/09/2024 11:15 AM CDT Office Visit [facility] [address] [address] Sindi Qiu, SPECIAL EDUCATION CLASSROOM AIDE, POKER MACHINE ATTENDANT Other autoimmune hemolytic anemia (HCC) (Primary Dx) 06/09/2024 11:00 AM CDT Lab [facility] [address] [address] Lab, Cc [place] Other autoimmune hemolytic anemia (HCC); Stage 3a chronic kidney disease (HCC); Vitamin B 12 deficiency 06/09/2024 Travel 05/26/2024 3:30 PM PAPER GOODS MACHINE SET UP OPERATOR Clinical Support [facility] [address] [address] Nurse, Cc [place] Other autoimmune hemolytic anemia (HCC) (Primary Dx) 05/26/2024 Travel 05/26/2024 Telephone [facility] [address] [address] Kev Moser MD canopy call/bulk picker Eliquis samples 05/12/2024 12:00 PM PAPER GOODS MACHINE SET UP OPERATOR Clinical Support [facility] [address] [address] Nurse, Cc [place] Vitamin B 12 deficiency (Primary Dx) 05/12/2024 11:15 AM PAPER GOODS MACHINE SET UP OPERATOR Office Visit [facility] [address] [address] Sindi Qiu, SPECIAL EDUCATION CLASSROOM AIDE, POKER MACHINE ATTENDANT Other autoimmune hemolytic anemia (HCC) (Primary Dx); Stage 3a chronic kidney disease (HCC); Vitamin B 12 deficiency 05/12/2024 11:00 AM PAPER GOODS MACHINE SET UP OPERATOR Lab [facility] [address] [address] Lab, Cc [place] Anemia in stage 3a chronic kidney disease (HCC); Stage 3a chronic kidney disease (HCC) 05/12/2024 Travel 04/30/2024 11:00 AM PAPER GOODS MACHINE SET UP OPERATOR Clinical Support [facility] [address] [address] Nurse, Cc [place]ne Other autoimmune hemolytic anemia (HCC) (Primary Dx) 04/30/2024 Travel 04/30/2024 Telephone [facility] [address] [phone] Kev Moser MD Canopy Call / Eliquis bulk picker from Last 3 Months Immunizations Immunization Administration [...] file Legal Sex Male 3:42 PM PAPER GOODS MACHINE SET UP OPERATOR Gender Identity Not on file Sexual Orientation Not on file Last Filed Vital Signs Vital Sign Reading Time Taken Comments Blood Pressure 142/70 07/07/2024 11:19 AM CDT Pulse 71 07/07/2024 11:19 AM CDT Temperature 36.8 C (98.2 F) 07/07/2024 11:19 AM CDT Respiratory Rate 16 07/07/2024 11:1 9 AM CDT Oxygen Saturation 96% 07/07/2024 11: 19 AM CDT Inhaled Oxygen Concentration - - Weight 105.8 kg (233 lb 3.2 oz) 025 11:19 AM CDT Height 165.1 cm (5' 5 ) 07/07/2024 11:1 9 AM CDT Body Mass Index 38.81 07/07/2024 11:19 AM CDT Plan of Treatment Upcoming Encounters Date Type Department Care Team (Late st Contact Info) Description 08/04/2024 11:10 AM CDT Lab [facility] [address] [address] Lab, Cc [facility] 08/04/2024 11:15 AM CDT Office Visit [facility] [address] [address] Kev Moser MD [address] [place] [phone] 08/04/2024 11:30 AM CDT Clinical Support [facility] [address] [address] Nurse, [facility] Health Maintenance Due Date Last Done Comments Hepatitis C Virus (HCV) Screening 1955 TdaP Immunization 1955 Zoster Immunization (1 of 2) 1973 Cologuard 02/14/2004 Immunochemical Fecal Occult Blood 02/14/2004 Respiratory Syncytial Virus (RSV) Immunization (Adult) (1 - Risk 60-74 years 1-dose series) 2014 AAA Screening Ultrasound 2019 Pneumococcal Immunization (50+ years) (2 of 2 - PPSV23) 04/06/2021 02/09/2021 SARS-COV-2 Immunization ( season) 2023 02/09/2021, 07/11/2020, 05/13/2020, Additional history exists Influenza Immunization (Season Ended) 2024 12/29/2021, 02/21/2021, 02/09/2021, Additional history exists Lung Cancer Screening 02/04/2025 [...] Diagnosis Comments C-REACTIVE PROTEIN (CRP) QUANT Routine 07/07/2024 10:47 AM CDT URINALYSIS WITH MICROSCOPIC, C/S IF INDICATED OH Routine 07/07/2024 10:47 AM CDT ANCA (VASCULITIS) [place], [place] [id number] Routine 07/07/2024 10:47 AM CDT CULTURE, URINE Routine 07/07/2024 10:47 AM CDT ERYTHROCYTE SEDIMENTATION RATE (ESR) Routine 07/07/2024 10:39 AM CDT COMPLETE BLOOD COUNT (CBC) WITH DIFF Routine 07/07/2024 10:39 AM CDT Other autoimmune hemolytic anemia CMP (COMPREHENSIVE METABOLIC PANEL) Routine 07/07/2024 10:39 AM CDT Other autoimmune hemolytic anemia C-REACTIVE PROTEIN (CRP) QUANT Routine 06/09/2024 10:51 AM CDT URINALYSIS WITH MICROSCOPIC [place] Routine 06/09/2024 10:51 AM CDT ANCA (VASCULITIS) [place], [place] [id number] Routine 06/09/2024 10:51 AM CDT ERYTHROCYTE SEDIMENTATION RATE (ESR) Routine 06/09/2024 10:51 AM CDT COMPLETE BLOOD COUNT (CBC) WITH DIFF Routine 06/09/2024 10:44 AM CDT Other autoimmune hemolytic anemia (HCC) Stage 3a chronic kidney disease (HCC) Vitamin B 12 deficiency CMP (COMPREHENSIVE METABOLIC PANEL) Routine 06/09/2024 10:44 AM CDT Other autoimmune hemolytic anemia (HCC) Stage 3a chronic kidney disease (HCC) Vitamin B 12 deficiency LACTATE DEHYDROGENASE (LD) Routine 06/09/2024 10:44 AM CDT Other autoimmune hemolytic anemia (HCC) Stage 3a chronic kidney disease (HCC) Vitamin B 12 deficiency VITAMIN B12 Routine 06/09/2024 10:44 AM CDT Other autoimmune hemolytic anemia (HCC) Stage 3a chronic kidney disease (HCC) Vitamin B 12 deficiency FOLIC ACID (FOLATE) Routine 06/09/2024 1 0:44 AM CDT Other autoimmune hemolytic anemia (HCC) Stage 3a chronic kidney disease (HCC) Vitamin B 12 deficiency FERRITIN Routine 06/09/2024 10:44 AM CDT Other autoimmune hemolytic anemia (HCC) Stage 3a chronic kidney disease (HCC) Vitamin B 12 deficiency IRON W/ IRON BINDING CAPACITY OH Routine 06/09/2024 10:44 AM CDT Other autoimmune hemolytic anemia (HCC) Stage 3a chronic kidney disease (HCC) Vitamin B 12 deficiency RETICULOCYTE COUNT (RETIC) Routine 06/09/2024 10:44 AM CDT Other autoimmune hemolytic anemia (HCC) Stage 3a chronic kidney disease (HCC) Vitamin B 12 deficiency C-REACTIVE PROTEIN (CRP) QUANT Routine 05/12/2024 10:59 AM PAPER GOODS MACHINE SET UP OPERATOR ERYTHROCYTE SEDIMENTATION RATE (ESR) Routine 05/12/2024 10:59 AM PAPER GOODS MACHINE SET UP OPERATOR COMPLETE BLOOD COUNT (CBC) WITH DIFF Routine 05/12/2024 10:56 AM PAPER GOODS MACHINE SET UP OPERATOR Anemia in stage 3a chronic kidney disease (HCC) Stage 3a chronic kidney disease (HCC) CMP (COMPREHENSIVE METABOLIC PANEL) Routine 05/12/2024 10:56 AM PAPER GOODS MACHINE SET UP OPERATOR Anemia in stage 3a chronic kidney disease (HCC) Stage 3a chronic kidney disease (HCC) VITAMIN B12 Routine 05/12/2024 10:56 AM PAPER GOODS MACHINE SET UP OPERATOR Anemia in stage 3a chronic kidney disease (HCC) Stage 3a chronic kidney disease (HCC) from Last 3 Months Results * ANCA (VASCULITIS) [place], [place] [id number] (07/07/2024 10:47 AM CDT) Only the most recent of2 resultswithin the time period is included. ANTI-MPO ANTIBODIES 0.2 0.0 - 0.[address] [facility] ANTI-PR3 ANTIBODIES <0.2 0.0 - 0.[address] [facility] CYTOPLASMIC (C-ANCA) <1:20 NEG:<1:[address] [facility] PERINUCLEAR (P-ANCA) <1:20 NEG:<1:[address] [facility] Comment: THE PRESENCE OF POSITIVE FLUORESCENCE EXHIBITING P-ANCA OR C-ANCA PATTERNS ALONE IS NOT SPECIFIC FOR THE DIAGNOSIS OF FADI'S GRANULOMATOSIS (WG) OR MICROSCOPIC POLYANGIITIS. DECISIONS ABOUT TREATMENT SHOULD NOT BE BASED SOLELY ON ANCA IFA RESULTS. THE INTERNATIONAL ANCA GROUP CONSENSUS RECOMMENDS FOLLOW UP TESTING OF POSITIVE SERA WITH BOTH MS- 3 AND MPO-ANCA ENZYME IMMUNOASSAYS. MANY 5% SERUM SAMPLES ARE POSITIVE ONLY BY EIA. REF. AM J CLIN PATHOL 1999;111:[id number]. ATYPICAL PANCA <1:20 NEG:<1:[address] [facility] Comment: THE ATYPICAL PANCA PATTERN HAS BEEN OBSERVED IN A SIGNIFICANT PERCENTAGE OF PATIENTS WITH ULCERATIVE COLITIS, PRIMARY SCLEROSING CHOLANGITIS AND AUTOIMMUNE HEPATITIS. 07/07/2024 10:4 7 AM CDT [facility] - 07/09/2024 8:18 PM CDT TESTING PERFORMED AT: [BN] [facility], [address], PHONE: [phone], GRAPHICS INTERN: SHOAIB OCAMPO MD TESTING PERFORMED AT: [] [facility], [address], [place], [address], PHONE: [phone], GRAPHICS INTERN: NAVEEN VEGA, PHD Tiffanie Weiss MD LAB SEND OUTS Final Result [facility] [place] [address], * (ABNORMAL) URINALYSIS WITH MICROSCOPIC, C/S IF INDICATED [place] (07/07/2024 10:47 AM CDT) Urine Color Light Yellow Straw-Yel low [facility] Urine Clarity Clear Clear [facility] Urine Glucose NEG NEG mg/dL [facility] Urine Bilirubin NEG NEG mg/dL [facility] Urine Ketones NEG NEG mg/dL [facility] Urine Specific [place] 1.020 1.015 - 1.020 [facility] Urine Blood NEG NEG mg/L [facility] Urine pH 5.0 5.0 - 8.0 [pH] [facility] Urine Protein NEG NEG mg/dL [facility] Urine Urobilinogen 0.2 0.2 - 1.0 mg/dL [facility] Urine Nitrite NEG NEG [facility] Urine Leukocytes NEG NEG [facility] Urine Epithelial Cells Rare None,Rare ,Few /LPF [facility] Urine Mucus Few(A) None /LPF [facility] Urine Cast None None /LPF [facility] Urine Bacteria Few(A) None /HPF [facility] R [facility] Urine Crystal None None /LPF [facility] Urine White Blood Cells 5-10(A) 0 - 4 /HPF [facility] Urine Red Blood Cells 0-2 0 - 2 /HPF [facility] 07/07/2024 10:4 7 AM CDT Tiffanie Weiss MD LAB SEND OUTS Final Result Performing Organization Address City/[facility]/ZIP Co de Phone Number [facility] [place] [address], * (ABNORMAL) CULTURE, URINE (07/07/2024 10:47 AM CDT) URINE CULTURE, ROUTINE FINAL REPORT(A) [facility] RESULT 1 ESCHERICHIA COLI(A) [facility] Comment: 10,000-25,000 COLONY FORMING UNITS PER ML CEFAZOLIN WITH AN JOSE <=16 PREDICTS SUSCEPTIBILITY TO THE ORAL AGENTS CEFACLOR, CEFDINIR, CEFPODOXIME, CEFPROZIL, CEFUROXIME, CEPHALEXIN, AND LORACARBEF WHEN USED FOR THERAPY OF UNCOMPLICATED URINARY TRACT INFECTIONS DUE TO E. COLI, KLEBSIELLA PNEUMONIAE, AND PROTEUS MIRABILIS. ANTIMICROBIAL SUSCEPTIBILITY COMMENT [facility] Comment: S = SUSCEPTIBLE; I = INTERMEDIATE; R = RESISTANT P = POSITIVE; N = NEGATIVE MICS ARE EXPRESSED IN MICROGRAMS PER ML ANTIBIOTIC RSLT#1 RSLT#2 RSLT#3 RSLT#4 AMOXICILLIN/CLAVULANIC ACID S AMPICILLIN S CEFAZOLIN S CEFEPIME S CEFOXITIN S CEFPODOXIME S CEFTRIAXONE S CIPROFLOXACIN S ERTAPENEM S GENTAMICIN S LEVOFLOXACIN S MEROPENEM S NITROFURANTOIN S PIPERACILLIN/TAZOBACTAM S TETRACYCLINE S TOBRAMYCIN S TRIMETHOPRIM/SULFA S 07/07/2024 10:[address] [facility] - 07/12/2024 8:18 PM CDT TESTING PERFORMED AT: [] [facility], [address] [place] [address], [address], PHONE: [phone], GRAPHICS INTERN: NAVEEN VEGA, PHD iTffanie Weiss MD MICROBIOLOGY - GENERAL ORDERABLE S Final Result [facility] [place] [address], * (ABNORMAL) C-REACTIVE PROTEIN (CRP) QUANT (07/07/2024 10:47 AM CDT) Only the most recent of3 resultswithin the time period is included. CRP 7.4(H) <5.0 mg/L [facility] 07/07/2024 10:4 7 AM CDT Tiffanie Weiss MD CHEMISTRY ORDERABLES Final Resul t Performing Organization Address City/[facility] Co de Phone Number [facility] [place] [address], * (ABNORMAL) ERYTHROCYTE SEDIMENTATION RATE (ESR) (07/07/2024 10:39 AM CDT) Only the most recent of3 resultswithin the time period is included. Erythrocyte Sedimentation Rate 44(H) 0 - 20 mm/hr [facility] 07/07/2024 10:3 9 AM CDT Sindi Qiu APRN, POKER MACHINE ATTENDANT HEMATOLOGY ORDERABLES Final Result Performing Organization Address [facility] de Phone Number [facility] [place] [address], * (ABNORMAL) CMP (COMPREHENSIVE METABOLIC PANEL) (07/07/2024 10:39 AM CDT) Only the most recent of3 resultswithin the time period is included. Glucose 141(H) 70 - 105 mg/dL [facility] Blood Urea Nitrogen 41(H) 7 - 25 mg/dL [facility] Creatinine 2.3(H) 0.7 - 1.3 mg/dL [facility] Sodium 138 136 - 145 mEq/L [facility] Potassium 5.2(H) 3.5 - 5.1 mEq/L [facility] Chloride 109(H) 98 - 107 mEq/L [facility] Bicarbonate 20(L) 21 - 31 mEq/L [facility] Total Bilirubin 0.5 0.3 - 1.0 mg/dL [facility] Alk. Phosphatase 71 34 - 104 U/L [facility] Aspartate Aminotransferase 10(L) 13 - 39 U/L [facility] Alanine Aminotransferase 10 7 - 52 U/L [facility] Total Protein 6.2(L) 6.4 - 8.9 g/dL [facility] Albumin 4.2 3.5 - 5.7 g/dL [facility] Calcium 8.4(L) 8.6 - 10.3 mg/dL [facility] Anion Gap 14.2 7.0 - 15.0 mEq/L [facility] Globulin 2.0 2.0 - 3.5 g/dL [facility] EGFR 30(L) >60 ml/min/1. 73m2 [facility] Comment: This eGFR is calculated using 2020 CKD-EPI Creatinine equation without race modifier based on the NKF-ASN task force recommendations Equation: kPFW=256*min(SCr/k,1)a*max(SCr/k,1)-1.200*0.9938Age*1.012 (if female), where SCr is serum creatinine, k is 0.7 for females and 0.9 for males, and a is -0.241 for females and -0.302 for males Blood 07/07/2024 10:3 9 AM CDT Narrative [facility] 07/07/2024 11:48 AM CDT Release to patient->Immediate IS THE PATIENT REQUIRED TO BE FASTING FOR 8 HOURS?->No us Sindi Qiu APRN, POKER MACHINE ATTENDANT CHEMISTRY ORDERABLES Final Result [facility] [place] [address], [place] [phone] * (ABNORMAL) COMPLETE BLOOD COUNT (CBC) WITH DIFF (07/07/2024 10:39 AM CDT) Only the most recent of3 resultswithin the time period is included. WBC 6.4 4.0 - 10.0 10*3/uL [facility] HGB 10.5(L) 13.7 - 17.5 g/dL [facility] HCT 34.9(L) 40.1 - 51.0 % [facility] PLT 165 163 - 369 10*3/uL [facility] MPV 10.4 9.4 - 12.4 fL [facility] RBC 3.73(L) 4.63 - 6.08 10*6/uL [facility] MCV 94 79 - 95 fL [facility] MCH 28.2 25.6 - 32.2 pg [facility] MCHC 30.1(L) 32.2 - 36.5 g/dL [facility] RDW 14.2 11.6 - 14.4 % [facility] Absolute Neutrophil Count 5,401 cells/uL [facility] ER SPECIAL[facility] Absolute Seg Count 5,273 1,440 - 6,600 cells/uL [facility] Absolute Band Count 129 0 - 800 cells/uL [facility] Absolute Lymph Count 450(L) 760 - 4,000 cells/uL [facility] Absolute [place] Count 129(L) 160 - 1,200 cells/uL [facility] Absolute Eos Count 386(H) 0 - 300 cells/uL [facility] Segmented Neutrophils 82(H) 36 - 66 % [facility] Band Neutrophils 2 0 - 8 % [facility] Lymphocytes 7(L) 19 - 40 % [facility] Monocytes 2(L) 4 - 12 % [facility] Eosinophils 6(H) 0 - 3 % [facility] Metamyelocytes 1 0 - 2 % [facility] WBC Estimate Normal [facility] Platelet Estimate Normal CA [facility] RBC Morphology Normal [facility] Blood 07/07/2024 10:3 9 AM CDT Narrative [facility] - 07/07/2024 1:37 PM CDT Release to patient->Immediate Sindi Qiu SPECIAL EDUCATION CLASSROOM AIDE, POKER MACHINE ATTENDANT HEMATOLOGY ORDERABLES Final Result [facility] [place] [address] [place] [address], [place] [phone] * URINALYSIS WITH MICROSCOPIC [place] (06/09/2024 10:51 AM CDT) Urine Color Yellow Straw-Yel low [facility] Urine Clarity Clear Clear [facility] Urine Glucose NEG NEG mg/dL [facility] Urine Bilirubin NEG NEG mg/dL [facility] Urine Ketones NEG NEG mg/dL [facility] Urine Specific [place] 1.020 1.015 - 1.020 [facility] Urine Blood NEG NEG mg/L [facility] Urine pH 5.0 5.0 - 8.0 [pH] [facility] Urine Protein NEG NEG mg/dL [facility] Urine Urobilinogen 0.2 0.2 - 1.0 mg/dL [facility] Urine Nitrite NEG NEG [facility] Urine Leukocytes NEG NEG [facility], 1928–1983 Urine Epithelial Cells Few None,Rare ,Few /LPF [facility], 1928–1983 Urine Mucus None None /LPF [facility], 1928–1983 Urine Cast None None /LPF [facility], 1928–1983 Urine Bacteria None None /HPF [facility] R [facility]ET[facility], 1928–1983 Urine Crystal None None /LPF [facility] 1928–1983 Urine White Blood Cells 0-4 0 - 4 /HPF [facility] Urine Red Blood Cells 0-2 0 - 2 /HPF [facility]ETING [facility] 06/09/2024 10:5 1 AM CDT Tiffanie Weiss MD LAB SEND OUTS Final Result [facility] [address] [place] [address], [place] [phone] * IRON W/ IRON BINDING CAPACITY [place] (06/09/2024 10:44 AM CDT) IRON 80 50 - 212 ug/dL [facility] UIBC 185 155 - 355 ug/dL [facility] TIBC 265 261 - 478 ug/dl [facility] % Saturation 30 20 - 50 % [facility] 06/09/2024 10:4 4 AM CDT [facility] 06/09/2024 11:42 AM CDT Release to patient->Immediate us Sindi Qiu APRN, CNP LAB SEND OUTS Final Result [facility] MARKETING [facility] OP [facility] [address] [place] [place] [address], * VITAMIN B12 (06/09/2024 10:44 AM CDT) Only the most recent of2 resultswithin the time period is included. Vitamin B12 567 180 - 914 pg/mL [facility] Blood 06/09/2024 10:4 4 AM CDT [facility] - 06/10/2024 3:03 PM CDT Release to patient->Immediate Sindi Qiu APRN, CNP CHEMISTRY ORDERABLES Final Result Performing Organization Address City/[facility] Co de Phone Number [facility] Cancer [facility] [address] [place] [address], [place] [phone] * RETICULOCYTE COUNT (RETIC) (06/09/2024 10:44 AM CDT) Reticulocyte count 1.76 0.51 - 1.81 % [facility]ET[facility] RET-He 30.10 28.20 - 36.60 pg [facility] Comment: RET-He is a direct assessment of incorporation of iron into erythrocyte hemoglobin. It provides an indirect measure of the iron available for new erythropoiesis over past 2-4 days. Blood 06/09/2024 10:4 4 AM CDT [facility] - 06/09/2024 11:09 AM CDT Release to patient->Immediate us Sindi Qiu APRN, POKER MACHINE ATTENDANT HEMATOLOGY ORDERABLES Final Result Performing Organization Address City/[facility]/ZIP Co de Phone Number CANCER MARKETING [facility] OP [facility] Cancer Care [address] [place] [address], [place] [phone] * LACTATE DEHYDROGENASE (LD) (06/09/2024 10:44 AM CDT) LDH 168 140 - 271 U/L [facility] Blood 06/09/2024 10:4 4 AM CDT [facility] - 06/09/2024 11:42 AM CDT Release to patient->Immediate us Sindi Qiu APRN, POKER MACHINE ATTENDANT CHEMISTRY ORDERABLES Final Result Performing Organization Address [facility] Co de Phone Number [facility] [place] [address], [place] [phone] * FOLIC ACID (FOLATE) (06/09/2024 10:44 AM CDT) Folate 19.02 >=5.90 ng/mL [facility] Blood 06/09/2024 10:4 4 AM CDT [facility] - 06/10/2024 3:03 PM CDT Release to patient->Immediate IS THE PATIENT REQUIRED TO BE FASTING FOR 12 HOURS?->No us Sindi Qiu APRN, POKER MACHINE ATTENDANT CHEMISTRY ORDERABLES Final Result Performing Organization Address [facility]/ZIP Co de Phone Number [facility] Cancer Care [address] [place] [address], [place] [phone] * (ABNORMAL) FERRITIN (06/09/2024 10:44 AM CDT) Ferritin 465(H) 24 - 336 ng/mL [facility] Blood 06/09/2024 10:4 4 AM CDT Narrative [facility] MARKETING [facility] OP [facility] - 06/10/2024 3:03 PM CDT Release to patient->Immediate Sindi Qiu SPECIAL EDUCATION CLASSROOM AIDE, POKER MACHINE ATTENDANT CHEMISTRY ORDERABLES Final Result CANCER MARKETING CO OP [facility] [address] [place] [address], from Last 3 Months Insurance MEDICARE MEDICARE [facility] Care Teams Associate Creative Director Relationship Specialty Start Date End Date Scott Oneill MD PCP - General Internal Medicine 04/29/17 Tavo Mishra MD [address] [id number] Internal Medicine 04/29/17 Kev Moser MD [address] [place] [address] Consulting Physician Oncology 02/09/20
--- OUTSIDE RECORDS SUMMARY | 2024-07-15 12:36 | XMS_ITS | Clinical Summary ---
Author Organization [facility] [address] Address [address] [place] [address] Care Team Providers Care Medical Device Sales Consultant Name Role Phone Scott Oneill MD Primary Care Provider [phone] Allergies No known active allergies Medications potassium [...] mg total) by mouth daily 4 Active calcitRIOL (ROCALTROL) 0.25 mcg capsule [...] DIRECTED ON INSIDE OF PACKAGE 4 Active cyclobenzaprine (FLEXERIL) 5 mg tabletIndication s:Muscle spasms of both lower extremities Take 1 tablet (5 mg total) by mouth 2 (two) times a day as needed for muscle spasms (muscle pain) 20 tablet 5 Active cyclobenzaprine (FLEXERIL) 5 mg tabletIndication s:Muscle spasms of both lower extremities Take 1 tablet (5 mg total) by mouth 2 (two) times a day as needed for muscle spasms (muscle pain) 4 07/16/19 25 Discontinu ed(Reorder ) Active Problems Problem Noted Date Diagnosed Date [...] Encounters Date Type Department Care Team Description 06/02/[address] [facility] RHEUMATOLOGY Scanning, Provider 04/20/2024 Orders Only [facility] Rheumatology [address] [facility] [address]th [place] [address] [place] [address] Tiffanie Weiss MD 04/16/[address] 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 Not on file Not on file Obstetrics History Last Filed Vital Signs Vital Sign Reading Time Taken Comments Blood Pressure 165/75 03/17/2024 3:28 PM CASKET INSPECTOR Pulse 56 03/17/2024 3:28 PM CASKET INSPECTOR Temperature 36.6 C (97.8 F) 03/17/2024 3:28 PM CASKET INSPECTOR Respiratory Rate 18 02/05/2024 2:17 PM CASKET INSPECTOR Oxygen Saturation 97% 03/17/2024 3:28 PM CASKET INSPECTOR Inhaled Oxygen Concentration - - Weight 105.6 kg (232 lb 12.8 oz) 03/17/2024 3:28 PM CASKET INSPECTOR Height 166.4 cm (5' 5.5 ) 03/17/2024 3:28 PM CASKET INSPECTOR Body Mass Index 38.15 03/17/2024 3:28 PM CASKET INSPECTOR Plan of Treatment Health Maintenance Due Date [...] Fall Risk Assessment 07/19/2021 07/19/2020 Influenza Vaccine (Season Ended) 2024 12/29/2021, 02/21/2021, 05/13/2020, Additional history exists Procedures Procedure Name Priority Date/Time Associated Diagnosis Comments SCAN - LABS 06/02/2024 from Last 3 Months Results * SCAN - LABS (06/02/2024) us Provider Scanning Edited Result - Final from Last 3 Months Insurance MEDICARE MEDICARE [facility] MEDICARE [employer] [place] [facility] [place] MEDIC[place] Advance Directives For more information, please contact: [phone] * Full Code (Latest Code Status on File) Date Activated Date Inactivated Comments 07/17/2020 8:05 PM 07/19/2020 7:41 PM * Full Code Date Activated Date Inactivated Comments 06/08/2020 6:02 PM 06/15/2020 7:20 PM Healthcare Agents on File Name Relationship Healthcare Agent Relationship Communication Shyann Nielsen Spouse First Alternat e Health Care Agent Care Teams Medical Device Sales Consultant Relationship Specialty Start Date End Date Scott Oneill MD PCP - General Internal Medicine 04/27/20
--- OUTSIDE RECORDS SUMMARY | 2024-07-15 12:36 | XMS_ITS | Encounter Summary ---
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
--- OUTSIDE RECORDS SUMMARY | 2024-07-15 12:36 | XMS_ITS | Encounter Summary ---
Author Organization [facility] Address [address] [place] [address] Phone Care Team Providers Care Ladies Suit Operator Name Role Phone Bia Oneill MD Primary Care Provider [phone] Reason for Visit * Reason Comments Med Refill Encounter Details Date Type Department Care Team (Late st Contact Info) Description 05/27/2021 Refill [facility] Nephrology and Hypertension [address] [facility], [address] [address] Gilmer Barnard MD [address] [facility], [address] [place] [address] Social History Tobacco Use Types Packs/Day Years [...] on file Legal Sex Male 10:04 AM [facility] Gender Identity Not on file Sexual Orientation Not on file documented as of this encounter Plan of Treatment Not on file documented as of this encounter Visit Diagnoses Not on filedocumented in this encounter Care Teams Ladies Suit Operator Relationship Specialty Start Date End Date Bia Oneill MD [address] [facility] [address] [place] [address] PCP - General Internal Medicine 07/16/18 documented as of this encounter
--- OUTSIDE RECORDS SUMMARY | 2024-07-15 12:36 | XMS_ITS | Encounter Summary ---
Author Organization [facility] Address [address] [place] [address] Phone Care Team Providers Care Circle Edger Name Role Phone Scott Oneill MD Primary Care Provider Tavo Mishra MD Unavailable [phone] Gilmer Barnard MD Unavailable [phone] Kev Moser MD Unavailable [phone] Reason for Visit * Reason Comments Medication Refill Encounter Details Date Type Department Care Team (Late st Contact Info) Description 08/26/2023 Refill [facility] [address] [address] Kev Moser MD [address] [place] [phone] Medication Refill Social History Tobacco Use [...] on file 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 Gender Identity Not on file Sexual [...] CDT Lab [facility] [address] [phone] Lab, [facility] 08/04/2024 11:15 AM CDT Office Visit [facility] [address] [phone] Kev Moser MD [address] [place] [phone] 08/04/2024 11:30 AM CDT Clinical Support [facility] [address] [phone] Nurse, [facility] documented as of this encounter Visit Diagnoses Not on filedocumented in this encounter Additional Health Concerns Assessment Noted Time PHQ-9 Depression Total Score: 0 11/25/19 21 11:34 AM CDT documented as of this encounter Care Teams Circle Edger Relationship Specialty Start Date End Date Scott Oneill MD PCP - General Internal Medicine 04/29/17 Tavo Mishra MD [address] [place] [address] [phone] Internal Medicine 04/29/17 Gilmer Barnard MD [address] [place] [address] [phone] Consulting Physician Internal Medicine 08/28/17 4 Kev Moser MD [address] [place] [phone] Consulting Physician Oncology 02/09/20 documented as of this encounter
--- OUTSIDE RECORDS SUMMARY | 2024-07-15 12:36 | XMS_ITS | Encounter Summary ---
Author Organization [facility] Address [address] [place] [address] Phone Care Team Providers Care Microsoft Dynamics Consultant Name Role Phone Scott Oneill MD Primary Care Provider [phone] Tavo Mishra MD Unavailable [phone] Gilmer Barnard MD Unavailable [phone] Kev Moser MD Unavailable [phone] Encounter Details Date Type Department Care Team (Late st Contact Info) Description 11/04/2023 Telephone [facility] [address] [place] [address] Kev Moser MD [address] [place] [phone] Social History Tobacco Use Types Packs/Day [...] on file 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 Gender Identity Not on file Sexual Orientation Not on file documented as of this encounter Plan of Treatment Upcoming Encounters Date Type Department Care Team (Late st Contact Info) Description 08/04/2024 11:10 AM CDT Lab [facility] [address] [address] Lab, [facility] 08/04/2024 11:15 AM CDT Office Visit [facility] [address] [phone] Kev Moser MD [address] [place] [phone] 08/04/2024 11:30 AM CDT Clinical Support [facility] [address] [phone] Nurse, [facility] documented as of this encounter Visit Diagnoses Not on filedocumented in this encounter Additional Health Concerns Assessment Noted Time PHQ-9 Depression Total Score: 0 11/25/19 21 11:34 AM CDT documented as of this encounter Care Teams Microsoft Dynamics Consultant Relationship Specialty Start Date End Date Scott Oneill MD PCP - General Internal Medicine 04/29/17 Tavo Mishra MD [address] [address] Internal Medicine 04/29/17 Gilmer Barnard MD [address] [address] Consulting Physician Internal Medicine 08/28/17 4 Kev Moser MD [address] [place] [phone] Consulting Physician Oncology 02/09/20 documented as of this encounter
--- OUTSIDE RECORDS SUMMARY | 2024-07-15 12:36 | XMS_ITS | Clinical Summary ---
Author Organization [facility] Address [address] [place] [place] [address] Care Team Providers Care Bread Dumper Name Role Phone Scott Oneill MD Primary Care Provider [phone] Allergies No known active allergies Medications atorvastatin [...] on file Legal Sex Male 9:59 AM CLIENT CARE SPECIALIST Gender Identity Not on file Sexual Orientation Not on file Last Filed Vital Signs Vital Sign Reading Time Taken Comments Blood Pressure 146/58 05/02/2017 10:20 AM CLIENT CARE SPECIALIST Pulse 103 05/02/2017 10:20 AM CLIENT CARE SPECIALIST Temperature 36.9 C (98.5 F) 05/02/2017 10:20 AM CLIENT CARE SPECIALIST Respiratory Rate 18 05/02/2017 10:20 AM CLIENT CARE SPECIALIST Oxygen Saturation - - Inhaled Oxygen Concentration - - Weight 97.1 kg (214 lb) 05/02/2017 10:20 AM CLIENT CARE SPECIALIST Height 166.4 cm (5' 5.5 ) 05/02/2017 10:20 AM CS T Body Mass Index 35.07 05/02/2017 10:20 AM CLIENT CARE SPECIALIST Plan of Treatment Health Maintenance Due Date [...] series) 2014 INFLUENZA VACCINE (#1) 2023 Insurance [facility] BLUE ACCESS CHOICE Care Teams Bread Dumper Relationship Specialty Start Date End Date Scott Oneill MD [address] [phone] PCP - General Internal Medicine 05/02/17
--- OUTSIDE RECORDS SUMMARY | 2024-07-15 12:36 | XMS_ITS | Encounter Summary ---
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
--- OUTSIDE RECORDS SUMMARY | 2024-07-15 12:36 | XMS_ITS | Encounter Summary ---
Author Organization [facility] Address [address] [place] [address] Phone Care Team Providers Care Correctional Corporal Name Role Phone Scott Oneill MD Primary Care Provider Tavo Mishra MD Unavailable [phone] Gilmer Barnard MD Unavailable [phone] Kev Moser MD Unavailable [phone] Reason for Visit * Reason Comments Medication Refill Encounter Details Date Type Department Care Team (Late st Contact Info) Description 07/27/2023 Refill [facility] [address] [phone] Kev Moser MD [address] [place] [phone] Medication Refill Social History Tobacco Use [...] on file 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 Refill if appropriate. documented in this encounter Plan of Treatment Upcoming Encounters Date Type Department Care Team (Late st Contact Info) Description 08/04/2024 11:10 AM CDT Lab [facility] [address] [phone] Lab, [facility] 08/04/2024 11:15 AM CDT Office Visit [facility] [address] [phone] Kev Moser MD [address] [place] [phone] 08/04/2024 11:30 AM CDT Clinical Support [facility] [address] [phone] Nurse, [facility] documented as of this encounter Visit Diagnoses Not on filedocumented in this encounter Additional Health Concerns Assessment Noted Time PHQ-9 Depression Total Score: 0 11/25/19 11:34 AM CDT documented as of this encounter Care Teams Correctional Corporal Relationship Specialty Start Date End Date Scott Oneill MD PCP - General Internal Medicine 04/29/17 Tavo Mishra MD [address] [place] [address] [phone] Internal Medicine 04/29/17 Gilmer Barnard MD [address] [place] [address] [phone] Consulting Physician Internal Medicine 08/28/17 4 Kev Moser MD [address] [place] [phone] Consulting Physician Oncology 02/09/20 documented as of this encounter
--- OUTSIDE RECORDS SUMMARY | 2024-07-15 12:36 | XMS_ITS | Clinical Summary ---
Author Organization [facility] Address [address] [place] [address] Care Team Providers Care District Wildlife Manager Name Role Phone Cee Rios [facility] Primary Care Prov ider Allergies No known [...] daily. 2 Active vitamin D2, ergocalciferol , 05719 UNITS capsule Take 1 capsule (50,000 Units [...] (01/30/2023): Added automatically from request for surgery [id number] Personal history of colonic polyps 01/30/2023 Overview (01/30/2023): Added automatically from request for surgery [id number] Positive colorectal cancer screening using Colog uard test 10/08/2021 Overview (10/08/2021): Added automatically from request for surgery [id number] Family History Medical History Relation Comments cancer,small [...] Comments Blood Pressure 128/53 06/02/2023 9:55 AM ACCOUNT MANAGEMENT SPECIALIST Pulse 63 06/02/2023 9:33 AM ACCOUNT MANAGEMENT SPECIALIST Temperature 36 C (96.8 F) 06/02/2023 9:26 AM ACCOUNT MANAGEMENT SPECIALIST Respiratory Rate 20 06/02/2023 8:33 AM ACCOUNT MANAGEMENT SPECIALIST Oxygen Saturation 97% 06/02/2023 10:00 AM ACCOUNT MANAGEMENT SPECIALIST Inhaled Oxygen Concentration - - Weight 101.2 kg (223 lb) 05/23/2023 2:05 PM ACCOUNT MANAGEMENT SPECIALIST Height 166.4 cm (5' 5.5 ) 05/23/2023 2:05 PM ACCOUNT MANAGEMENT SPECIALIST Body Mass Index 36.54 05/23/2023 2:05 PM ACCOUNT MANAGEMENT SPECIALIST Plan of Treatment Health Maintenance Due Date Last Done Comments Hepatitis C 02/14/1972 DTaP, Tdap and Td Vaccines ( 1 - Tdap) 1973 Zoster Vaccines (1 of 2) 02/14/2004 Annual Medicare Wellness Visit 2019 Pneumococcal Vaccine: 50+ Years (2 of 2 - PPSV23) 02/09/2022 02/09/2021, 05/01/2017 COVID-19 Vaccine (4 - 2023-2 5 season) 2023 02/09/2021, 07/11/2020, 05/13/2020 PHQ-2 (Physician [place]) 03/31/2024 01/29/2023 RSV Immunization or 60+ Years [...] 20 Months Aged Out No longer eligible b ased on patient's age to complete this topic Procedures Procedure Name Priority Date/Time Associated Diagnosis Comments COLONOSCOPY Routine 10/18/2021 2:28 PM CDT from Last 3 Months or Most Recently Relevant to Health Maintenance Insurance MEDICARE [facility] Care Teams District Wildlife Manager Relationship Specialty Start Date End Date Cee Rios FNP [address] [place] [id number] PCP - General NURSE PRACTITIONER 12/10/22
--- OUTSIDE RECORDS SUMMARY | 2024-07-15 12:37 | XMS_ITS | Continuity of Care Document ---
Author Organization [facility] Address [address] [place] [address] Phone Care Team Providers Care Vascular Surgeon Name Role Phone Renny Garcia Unavailable Unavailable Advance Directives Directive Yes / No Effective Date File Name No Information Encounters Encounter Description Practice Location Reason(s) For Visit Diagnoses Date Provider Providers Copied on Encounter [facility], [address], [place], [place], [id number], [place] tel:[phone] [facility] [place] No Information Dec-0 6-200 1 [address] Edward. [address] [place] , [address], [place], [address], [place]. tel:[phone] Family History Family Member Type Diagnosis Age At Onset No Information Payers Payer name Insurance type Covered libertarian ID Authoriza tion(s) [place] [id number] Social History Type Description Quantity Date Captured [...]
--- OUTSIDE RECORDS SUMMARY | 2024-07-15 12:37 | XMS_ITS | Data Portability ---
Author Organization [place] [facility], Main Office Address [address] [place] [address] Care Team Providers Care Mutual Fund Manager Name Role Phone LEANN ONEILL Primary Care Provider Assessment No assessment recorded. Plan of Treatment Reminders Order Date Submit Date Provider Last Modified By Organization Details Last Modified Time Details Appointments Establish ed Patient 15 2024 09:45A M Leann Oneill MD Not available Not available Not available Lab testoster one, free + total, serum 2024 025 [email or web address] 2 [facility], [address] [place] [address], [id number], 05/06/2024 08:40:30 PSA, serum or plasma 2023 024 [email or web address] [facility], [address] [place] [address], [id number], 12/17/2023 07:51:57 lipid panel, serum [email or web address], [address] [place] [address], [id number], 12/17/2023 07:51:56 Referral None recorded. Procedures None recorded. Surgeries None recorded. Imaging None recorded. Medication Orders tadalafil 20 mg tablet 2024 025 [facility], [address] [place], [id number], 04/08/2024 09:47:11 Patient TargetsNo targets recorded. Patient Instructions Encounter Date Encounter Id Patient Instructions Last Modified By Organization Details Last Modified Time 04/08/2023 [id number] Not available 04/08/2023 12:36:21 08/05/2023 [id number] [email or web address] Not available 08/05/2023 12:11:17 12/10/2023 [id number] dementia rating scale-2* Not available 12/10/2023 17:40:46 alcohol misuse* Not available 12/10/2023 17:40:46 depression screening* Not available 12/10/2023 17:40:47 Timed Up and Go test (TUG)* Not available 12/10/2023 17:40:46 multi-dimensiona l health assessment questionnaire* Not available 12/10/2023 17:40:47 advance care planning: care instructions Not available 12/10/2023 17:40:46 advance directiv es: care instructions Not available 12/10/2023 17:40:47 [place] Advance Directives Not available 12/10/2023 17:40:47 Personalized [...] necessary Dementia Risk: Low Depression Screening: Negative [email or web address] Not available 12/10/2023 15:25:38 04/08/2024 [id number] [facility] Not available 04/08/2024 09:48:43 Reason for Referral None Reported. Results Created Date Observation Date Name Description Value Unit Range Abnormal Flag Note LastModifiedBy Organization Detail LastModifiedTime 04/04/19 24 04/03/2023 CT, angio gram, chest , w/o contr ast No observ ation record ed. [facility] [email or web address] Not Available 2023 09:04:11 04/04/19 24 04/03/2023 [...] Organization Details Recorded Time Polyp of colon 90339494 Active 2022 Leann Oneill MD [address], [place], [address] , [employer] 3 12:56:21 Acute sinusiti s 05788416 Active 2022 Libra Blas LPN [facility], [employer] 3 17:08:12 Melena 4966875 Active 2022 Leann Oneill MD [address], [address], [place], [address] , [employer] [facility] [employer] 3 14:26:40 Blood in urine 59189579 Active 2022 Leann Oneill MD [address], [address], [place], [address] , [facility] 3 14:27:23 Intersti tial lung disease 800871279 Active 2022 Leann Oneill MD [address], [address], [place], [address] , [facility] 3 14:32:34 Mass of subcutan eous tissue of toe of left foot 44942260819 532876 Active 2023 He Mccormick DPM [address], [address], [place], [address] , [facility] 4 11:19:16 History of malignan t neoplasm of skin 291095827 Active 2023 He Mccormick DPM [address], [address], [place], [address] , [facility] 4 11:19:52 Vasculit is 62295296 Active 2023 Leann Oneill MD [address], [address], [place], [address] , [facility] 4 12:34:40 Sinusiti s 36059576 Active 2023 Rosa Walter MA null, [facility] 4 11:15:03 Deep venous thrombos is 425394279 Active 2020 DEVEN Torres null, [facility] 3 12:27:50 Abnormal testoste lizzy 058879212 Active could not afford medicine DEVEN Torres, [facility] 3 12:27:32 Testoste lizzy level below referenc e range 207170966 Completed 202112/06/2022 DEVEN Torres, [facility] 3 12:28:40 External hordeolu m 7749154 Active Not Available [facility] 3 04:52:03 Hearing loss 00066447 Active 2021 Sarah groves RMA null, [place] [facility] 3 12:27:57 Acute sinusiti s 66016658 Completed 202112/06/2022 Libra Blas PAPIER MACHE MOLDER null, [place] [facility] 3 17:08:12 Backache 586052005 Completed 202012/06/2022 Sarah groves RMA null, [place] [facility] 3 12:27:28 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 2020 Not Available [facility] 3 04:52:03 Osteoart hritis of knee 979833352 Active Not Available [facility] 3 04:52:03 Edema 769214847 Completed 202012/06/2022 Sarah groves, RMA null, [place] [facility] 3 12:27:45 Anemia 003264823 Active 2019 Not Available [facility] 3 04:52:03 Eruption 378818706 Completed Not Available [facility] 3 04:52:04 Low back pain 633266133 Completed Not Available [facility] 3 04:52:04 Chest pain 30068648 Completed 202012/06/2022 Sarah groves RMA null, [place] [facility] 3 12:27:25 Otitis externa 2203411 Completed Not Available [facility] 3 04:52:04 Malignan t neoplasm of skin 790850844 Active on lip, no recurren ce, dr whelan Not Available [facility] 3 04:52:04 Neuropat hy 926269218 Active Sarah groves RMA null, [place] [facility] 3 12:28:38 Osteoart hritis 474540373 Completed 12/06/2022 Sarah groves RMA null, [place] [facility] [place] [facility] 3 12:28:43 Obesity 086820580 Active Not Available [facility] 3 04:52:04 Cough 19559366 Completed 202112/06/2022 Sarah groves RMA null, [place] [facility] 3 12:27:23 Ulcer of duodenum 17452750 Active 2020 Not Available [facility] 3 04:52:05 Acute upper respirat ory infectio n 80067288 Completed 202112/06/2022 Sarah groves RMA null, [place] [facility] 3 12:27:19 Hyperlip idemia 33661605 Active Not Available [facility] 3 04:52:05 [facility] hyperten mara 54983927 Active Not Available [facility] 3 04:52:05 Otitis media 13907947 Completed Not Available [facility] 3 04:52:05 Sleep apnea 61816468 Active cpap Not Available [facility] 3 04:52:05 Ex-smoke r 1636668 Active quit 2010 Sarah groves RMA null, [place] [facility] [place] [facility] 3 12:27:44 Erectile dysfunct ion 213402775 Active 2021 Sarah groves RMA null, [place] [facility] [place] [facility] 3 12:27:37 Kidney disease 06512779 Active 2020 Sarah groves RMA null, [place] [facility] [place] [facility] 3 12:27:52 Notes:Medical History: Bilat eral [...] 2020 Colonoscopy with polypectomy 2021 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 Procedures Surgical History Date Name Laterality Status Provider Name and Address Organization Details Recorded Time 4 Medicare Wellness CPT Code, subsequent completed Debbie Sepulveda RN [facility] 12/10/2023 12:53:31 4 Advanced Care Planning completed Debbie Sepulveda RN [facility] 12/10/2023 14:58:54 3 Medicare Wellness CPT Code, subsequent completed Umm Regan RN [facility] 12/06/2022 12:58:58 other completed Not Available [facility] 03/2022 04:43:13 Imaging Results Imaging Date Name Status LastModified by Organiz ation Details LastModified Time 04/03/2023 CT, angiogram, chest, w/o contrast completed [facility] Information not available 04/09/2023 09:04:11 04/03/2023 CT, abdomen + pelvis, w/o contrast completed [email or web address] Information not available 04/09/2023 09:04:11 10/18/2021 colonoscopy screening (PROC) completed [facility] Information not available 04/09/2024 11:31:35 Procedure Notes None recorded. Medical Equipment None Reported. Medications Name Sig Start Date Stop Date Status Note LastModified by Organization Details LastModified Time losartan 50 mg tablet TAKE ONE TABLET BY MOUTH ONCE DAILY active Not Available Not Available No t Available amoxicill in 500 mg capsule TAKE 1 CAPSULE BY MOUTH THREE TIMES DAILY FOR 7 DAYS 12/06 completed Not Available Not Available Not Available furosemid e 40 mg tablet TAKE 1 TABLET BY MOUTH ONCE DAILY active Not Available Not Available No t Available atorvasta tin 40 mg tablet TAKE 1 TABLET BY MOUTH ONCE DAILY active Not Available Not Available No t Available neomycin- polymyxin -hydrocor t 3.5 mg/mL-10, 000 unit/mL-1 % ear solution INSTILL 4 DROPS INTO AFFECTED EAR(S) BY OTIC ROUTE 3 TIMES PER DAY active Not Available Not Available No t Available prednison e 10 mg tablet 40mg daily 01/04 completed Not Available Not Available Not Available doxycycli ne hyclate 100 mg capsule Take 1 capsule twice a day by oral route for 7 days. 02/05 completed Not Available Not Available Not Available atorvasta tin 20 mg tablet Take 1 tablet by mouth once daily 03/07 completed Not Available Not Available Not Available labetalol 200 mg tablet TAKE 1 TABLET BY MOUTH TWICE DAILY active Not Available Not Available No t Available triamcino lone acetonide 0.5 % topical cream apply bid active Not Available Not Available No t Available benzonata te 200 mg capsule Take 1 capsule 3 times a day PRN by oral route. 05/20 completed Not Available Not Available Not Available sulfameth oxazole 400 mg-trimet hoprim 80 mg tablet 09/19 completed Not Available Not Available Not Available valacyclo vir 1 gram tablet TAKE 1 TABLET BY MOUTH THREE TIMES DAILY 03/17 completed Not Available Not Available Not Available hydrocodo ne 5 mg-acetam inophen 325 mg tablet TAKE 1 TABLET BY MOUTH EVERY 6 HOURS NEEDED FOR PAIN 03/07 completed Not Available Not Available Not Available lisinopri l 20 mg tablet TAKE 1 TABLET BY MOUTH ONCE DAILY 12/06 completed Not Available Not Available Not Available ondansetr on HCl 4 mg tablet 10/23 completed Not Available Not Available Not Available Medrol (Fantasma) 4 mg tablets in a dose pack take as directed on prepacka ged rx 05/20 completed Not Available Not Available Not Available prednison e 20 mg tablet TAKE 2 TABLETS BY MOUTH ONCE DAILY 08/03 completed Not Available Not Available Not Available prednison e 5 mg tablet TAKE 1 & 1 2 (ONE & ONE HALF) TABLETS BY MOUTH ONCE DAILY 01/04 completed Not Available Not Available Not Available Zithromax Z-Fantasma 250 mg tablet TAKE 2 TABLETS (500 MG) BY ORAL ROUTE ONCE DAILY FOR 1 DAY THEN 1 TABLET (250 MG) BY ORAL ROUTE ONCE DAILY FOR 4 DAYS 2024 active per 06/30/24 patient case / ds Not Available Not Available Not Available clindamyc in HCl 150 mg capsule TAKE FOUR CAPSULES BY MOUTH ONE HOUR BEFORE APPOINTM ENT 12/07 completed Not Available Not Available Not Available azathiopr ine 50 mg tablet TAKE 4 TABLETS BY MOUTH ONCE DAILY 03/17 completed Not Available Not Available Not Available omeprazol e 40 mg capsule,d elayed release 05/28 completed Not Available Not Available Not Available aspirin 81 mg tablet,de layed release Take 1 tablet every day by oral route. active Not Available Not Available No t Available tramadol 50 mg tablet TAKE 1 TABLET BY MOUTH TWICE DAILY NEEDED FOR 30 DAYS 2023 active Last fill 11/12/22 MELISSA Not Available Not Available Not Available triamcino lone acetonide 0.1 % topical cream APPLY A THIN LAYER TOPICALL Y TO AFFECTED AREA(S) TWICE DAILY active Not Available Not Available No t Available oxycodone -acetamin ophen 5 mg-325 mg tablet TAKE 1 TO 2 TABLETS BY MOUTH EVERY 6 HOURS NEEDED 11/21 completed Not Available Not Available Not Available ofloxacin 0.3 % ear drops Instill 5 drops twice a day by otic route. active Not Available Not Available No t Available alprazola m 0.25 mg tablet 05/28 completed Not Available Not Available Not Available potassium chloride ER 20 mEq tablet,ex tended release(p art/cryst ) TAKE 1 BY MOUTH TWICE DAILY active Not Available Not Available No t Available sodium bicarbona te 650 mg tablet TAKE 1 TABLET BY MOUTH TWICE DAILY active Not Available Not Available No t Available amlodipin e 10 mg tablet 05/28 completed Not Available Not Available Not Available doxycycli ne monohydra te 100 mg capsule TAKE 1 CAPSULE BY MOUTH TWICE DAILY FOR 7 DAYS 12/06 completed Not Available Not Available Not Available cephalexi n 500 mg capsule TAKE 1 CAPSULE BY MOUTH 4 TIMES DAILY 12/07 completed Not Available Not Available Not Available pantopraz ole 40 mg tablet,de layed release TAKE 1 TABLET BY MOUTH ONCE DAILY active Not Available Not Available No t Available CellCept 500 mg tablet Take 1 tablet twice a day by oral route. active Not Available Not Available No t Available gabapenti n 300 mg capsule TAKE 1 CAPSULE BY MOUTH THREE TIMES DAILY DIRECTED FOR 30 DAYS 12/13 completed Not Available Not Available Not Available diclofena c sodium 75 mg tablet,de layed release TAKE ONE TABLET BY MOUTH EVERY 12 HOURS NEEDED 05/29 completed Not Available Not Available Not Available monteluka st 10 mg tablet Take 1 tablet every day by oral route. 03/17 completed Not Available Not Available Not Available hydrocodo ne 5 mg-acetam inophen 500 mg tablet 03/15 completed Not Available Not Available Not Available codeine 10 mg-guaife nesin 100 mg/5 mL oral liquid TAKE 5 ML (CC) BY MOUTH EVERY 6 HOURS NEEDED 12/06 completed Not Available Not Available Not Available ergocalci ferol (vitamin D2) 1,250 mcg (50,000 unit) capsule TAKE 1 CAPSULE BY MOUTH ONCE A WEEK 05/20 completed Not Available Not Available Not Available irbesarta n 150 mg tablet Take 1 tablet every day by oral route. active Not Available Not Available No t Available triamcino lone acetonide 0.1 % lotion APPLY A THIN LAYER TO THE AFFECTED AREA(S) BY TOPICAL ROUTE 2 TIMES PER DAY 05/28 completed Not Available Not Available Not Available labetalol 100 mg tablet 05/28 completed Not Available Not Available Not Available albuterol sulfate HFA 90 mcg/actua tion aerosol inhaler INHALE 1 PUFF BY MOUTH 4 TIMES DAILY 12/06 completed Not Available Not Available Not Available ondansetr on 4 mg disintegr ating tablet 08/03 completed Not Available Not Available Not Available losartan 100 mg tablet TAKE ONE TABLET BY MOUTH ONCE DAILY 05/28 completed Not Available Not Available Not Available fluticaso ne propionat e 50 mcg/actua tion nasal spray,michelle pension [place] 2 sprays every day by intranas al route. 03/17 completed Not Available Not Available Not Available amoxicill in 875 mg-potass ium clavulana te 125 mg tablet TAKE 1 TABLET BY [...] completed Not Available Not Available Not Available cyclobenz aprine 5 mg tablet 10/29 completed Not Available [...] completed Not Available Not Available Not Available pregabali n 50 mg capsule TAKE 1 CAPSULE BY MOUTH THREE TIMES DAILY 2024 active Not Available Not Available Not Avai lable Calcium 600 + D(3) 03/17 completed Not Available Not Available Not Available sevelamer carbonate 800 mg tablet 05/28 completed Not Available Not Available Not Available Androderm 2 mg/24 hour transderm al 24 hour patch 03/15 completed Not Available Not Available Not Available Eliquis 5 mg tablet Take 1 tablet twice a day by oral route. 2020 active Not Available Not Available Not Avai lable potassium chloride ER 20 mEq tablet,ex tended release Take 1 tablet twice a day by oral route for 20 days. 09/19 completed Not Available Not Available Not Available cyclophos phamide 50 mg capsule Take 2 capsules every day by oral route for 30 days. 09/19 completed Not Available Not Available Not Available Sutab 1.479-0.1 88-0.225 gram tablet TAKE 12 TABLETS BY MOUTH DAILY FOR 2 DAYS, TAKE MEDICATI ONS AT SPECIFIE D TIMES PER GI CLINIC INSTRUCT IONS 02/05 completed Not Available Not Available Not Available Vitals Date Recorded Body height Body mass index (BMI) Body weight Oxygen saturation Oxygen saturation in Arterial blood by Pulse oximetry Heart rate Body temperature Systolic blood pressure Diastolic blood pressure Provider Name and Address Organization Details Last Updated DateTime 4 165.1 cm 37.8 kg/m2 614503. 47 g 95 % 95 % 60 /min 97.9 [degF] 122 mm[Hg] 70 mm[Hg] Roxana Browning CMA [place] [facility] 4 12:03:25 Date Recorded Body height Body mass index (BMI) Body weight Heart rate Respiratory rate Oxygen saturation Oxygen saturation in Arterial blood by Pulse oximetry Provider Name and Address Organization Details Last Updated DateTime 4 165.1 cm 37.8 kg/m2 457250. 47 g 87 /min 14 /min 98 % 98 % Wen Frank [facility] [employer] [facility] 4 09:57:22 Date Recorded Body height Body mass index (BMI) Body weight Body temperature Heart rate Oxygen saturation Oxygen saturation in Arterial blood by Pulse oximetry Systolic blood pressure Diastolic blood pressure Provider Name and Address Organization Details Last Updated DateTime 4 165.1 cm 38.9 kg/m2 404700. 61 g 97.9 [degF] 86 /min 98 % 98 % 140 mm[Hg] 82 mm[Hg] Janey Ulrich CMA [facility] [employer] [facility] 4 12:11:24 Date Recorded Body height Body mass index (BMI) Body weight Body temperature Heart rate Oxygen saturation Oxygen saturation in Arterial blood by Pulse oximetry Systolic blood pressure Diastolic blood pressure Provider Name and Address Organization Details Last Updated DateTime 4 165.1 cm 39.1 kg/m2 427485. 21 g 97.7 [degF] 73 /min 96 % 96 % 140 mm[Hg] 60 mm[Hg] DEVEN Salgado [facility] [employer] [facility] 4 11:56:23 Date Recorded Pain severity - 0-10 verbal numeric rating [Score] - Reported Provider Name and Address Organization Details Last Updated DateTime 12/10/2023 6 Debbie Sepulveda RN [facility] [employer] [facility] 12/10/2023 14:54:48 Date Recorded Body weight Body temperature Oxygen saturation Oxygen saturation in Arterial blood by Pulse oximetry Heart rate Systolic blood pressure Diastolic blood pressure Provider Name and Address Organization Details Last Updated DateTime 5 483159. 61 g 97.4 [degF] 94 % 94 % 88 /min 138 mm[Hg] 62 mm[Hg] Marga pearson [facility] [employer] [facility] 5 09:18:42 Social History Question Answer Notes LastModified by Organization Details LastModified Time Tobacco Smoking Status Former Smoker Quit in 2003 Debbie Sepulveda RN [facility] [employer] [facility] 12/10/2023 12:57:32 Do You Have An Advance Directive? No Paperwork Given 12/10/2023 [email or web address] Information not available 12/10/2023 What Is Your Level Of Alcohol Consumption? None [email or web address] Information not available 12/10/2023 Are You Blind Or Do You Have Difficulty Seeing? No MIGRATION.[id number] [id number] Information not available 05/29/2022 Is Blood Transfusion Acceptable In An Emergency? Yes [email or web address] Information not available 12/10/2023 What Is Your Level Of Caffeine Consumption? Occasional [email or web address].0301 [id number] Information not available 05/29/2022 How Much Tobacco Do You Chew? None MIGRATION.0301 [id number] Information not available 05/29/2022 In The 14 Days Before Symptom Onset, Have You Had Close Contact With A Laboratory-conf irmed COVID-19 While That Case Was Ill? No Not Applicable [email or web address] Information not available 12/10/2023 In The 14 Days Before Symptom Onset, Have You Had Close Contact With A Person Who Is Under Investigation For COVID-19 While That Person Was Ill? No Not Applicable [email or web address] Information not available 12/10/2023 Are You Currently Employed? No [email or web address] Information not available 12/10/2023 Are You Deaf Or Do You Have Serious Difficulty Hearing? Yes Bilateral Hearing Aids [email or web address] Information not available 12/10/2023 What Type Of Diet Are You Following? REGULAR MIGRATION.0301 [id number] Information not available 05/29/2022 Which Illicit Or Recreational Drugs Have You Used? None MIGRATION.0301 [id number] Information not available 05/29/2022 What Is The Highest Grade Or Level Of School You Have Completed Or The Highest Degree You Have Received? [id number] [email or web address] Information not available 12/10/2023 Do You Have An Electrostatic Air Filter? 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 0 [email or web address] Information not available 12/10/2023 Have There Been Any Changes To Your Family Or Social Situation? No MIGRATION.0301 [id number] Information not available 05/29/2022 What Is The Fluoride Status Of Your Home? Fluoridated MIGRATION.0301 [id number] Information not available 05/29/2022 When Did You Quit Smoking? 16+yearssincelastc igarette [email or web address] Information not available 12/10/2023 Are There Any Guns Present In Your Home? Yes MIGRATION.0301 [id number] Information not available 05/29/2022 Do You Have A Humidifier? No On The Cpap Machine MIGRATION.0301 [id number] Information not available 05/29/2022 Do You Use Insect Repellent Routinely? No [email or web address] Information not available 12/10/2023 Where Do You Live? SingleLevelHouse MIGRATION.0301 [id number] Information not available 05/29/2022 Presence Of Domestic Violence No [email or web address] Information not available 12/06/2022 Are You Able To Care For Yourself? Yes [email or web address] Information not available 12/06/2022 Are You Blind Or Do Yo Have Difficulty Seeing? No [email or web address] Information not available 12/06/2022 Are You Deaf Or Do You Have Serious Difficulty Hearing? No Information not available 12/06/2022 General Stress Level? Moderate [email or web address] Information not available 12/10/2023 Live Alone Of With Others? With Others [email or web address] Information not available 12/06/2022 Do You Have A Medical Power Of Senior Manager? No [email or web address] Information not available 12/10/2023 Do You Have Moisture Problems In Your Home? No MIGRATION.0301 [id number] Information not available 05/29/2022 What Was The Date Of Your Most Recent Tobacco Screening? 12/10/2023 [email or web address] Information not available 12/10/2023 How Many Children Do You Have? 4 [email or web address] Information not available 12/10/2023 What Is Your Current Pack Years? 30ormorepackyears [email or web address] Information not available 12/10/2023 Do You Have Any Pets? Yes MIGRATION.0301 [id number] Information not available 05/29/2022 Do You Use Protection During Sex? No [email or web address] Information not available 12/10/2023 What Is Your Relationship Status? [email or web address] Information not available 12/10/2023 Do You Use Your Seat Belt Or Car Seat Routinely? Yes MIGRATION.0301 [id number] Information not available 05/29/2022 Are You Sexually Active? Yes [email or web address] Information not available 12/10/2023 Do You Have Smoke And Carbon Monoxide Detectors In Your Home? Yes MIGRATION.0301 [id number] Information not available 05/29/2022 At What Age Did You Start Smoking Tobacco? 18 MIGRATION.0301 [id number] Information not available 05/29/2022 Are You Passively Exposed To Smoke? No MIGRATION.0301 [id number] Information not available 05/29/2022 Are There Any Smokers In Your House? No MIGRATION.0301 [id number] Information not available 05/29/2022 How Much Tobacco Do You Smoke? 1 PPD MIGRATION.0301 [id number] Information not available 05/29/2022 What Types Of Sporting Activities Do You Participate In? None [email or web address] Information not available 12/10/2023 Do You Feel Stressed (tense, Restless, Nervous, Or Anxious, Or Unable To Sleep At Night)? [id number] [email or web address] Information not available 12/10/2023 Do You Use Any Illicit Or Recreational Drugs? No MIGRATION.0301 [id number] Information not available 05/29/2022 Do You Use Sunscreen Routinely? No MIGRATION.0301 [id number] Information not available 05/29/2022 Has Tobacco Cessation Counseling Been Provided? No [email or web address] Information not available 12/10/2023 How Many Years Have You Smoked Tobacco? 30 [email or web address] Information not available 12/10/2023 Have You Recently Traveled Abroad? No MIGRATION.0301 [id number] Information not available 05/29/2022 Do You Have Any Dietary Restrictions? No MIGRATION.0301 [id number] Information not available 05/29/2022 Do You Or Have You Ever Used Any Other Forms Of Tobacco Or Nicotine? No MIGRATION.0301 257756 Information not available 05/29/2022 Sex: Male Functional Status Question Answer Note LastModified by Organizat ion Details LastModified Time Do you have difficulty walking or climbing stairs? No MIGRATION.[id number] 026 Information not available 05/29/2022 Do you have transportation difficulties? No MIGRATION.[id number] 026 Information not available 05/29/2022 Are you able to walk? YESWOREST MIGRATION.7038579 026 Information not available 05/29/2022 Do you have difficulty doing errands alone? No MIGRATION.5894009 026 Information not available 05/29/2022 Are you able to care for yourself? Yes MIGRATION.3312627 026 Information not available 05/29/2022 Do you have difficulty dressing or bathing? No MIGRATION.8305282 026 Information not available 05/29/2022 What is your exercise level? None MIGRATION.5522183 026 Information not available 05/29/2022 Mental Status Question Answer Note LastModified by Organizat ion Details LastModified Time Do you have difficulty concentrating, remembering or making decisions? No MIGRATION.[id number] 6 Information not available 05/29/2022 Family History Relationship Description Onset Age of this Age Resolved Age Notes LastModified by Organization Details LastModified Time Father Essential hypertension MIGRATION.630 [id number] Not available 05/29/2022 04:43:16 Sister Diabetes mellitus MIGRATION.227 [id number] Not available 05/29/2022 04:43:16 Brother Small cell carcinoma of lung 59 MIGRATION.156 [id number] Not available 05/29/2022 04:43:16 Medical History Condition Response HYPERTENSION Y HIGH CHOLESTEROL / HYPERLIPIDEMIA Y Immunizations Vaccine Type Date Status Note Provider Nam e and Address Organization Details Recorded Time COVID-19, mRNA, LNP-S, PF, 100 mcg/0.5mL dose or 50 mcg/0.25mL dose 1 completed Not Available [facility] 05/29/2022 05:05:37 COVID-19, mRNA, LNP-S, PF, 100 mcg/0.5mL dose or 50 mcg/0.25mL dose 1 completed Not Available [facility] 05/29/2022 05:05:38 Influenza, split virus, quadrivalent, preservative 1 completed Not Available [facility] 05/29/2022 05:05:38 Influenza, split virus, quadrivalent, PF 9 completed Not Available [facility] 05/29/2022 05:05:38 Influenza, high-dose, trivalent, PF 8 completed Not Available [facility] 05/29/2022 05:05:38 Influenza, split virus, trivalent, PF 4 completed Not Available [facility] 05/29/2022 05:05:38 Past Encounters Encounter ID Performer Location Encounter Start Date Encounter Closed Date Diagnosis/Indication Diagnosis SNOMED-CT Code Diagnosis ICD10 Code Diagnosis Note [id number] [facility] [address] [place] [address] 07/25/2020 00:00:00 07/25/2020 10:30:24 [id number] [facility] [address] [place] [address] 11/21/2020 00:00:00 11/21/2020 11:24:02 [id number] [facility] [place] [address] [address] 12/07/2020 00:00:00 12/07/2020 08:29:49 [id number] [facility] [place] [address] [address] 02/01/2021 00:00:00 02/01/2021 09:16:01 [id number] [facility] [address] [facility] [place] [address] 03/07/2021 00:00:00 03/07/2021 11:59:20 [id number] [facility] [address] [facility] [place] [address] 07/06/2021 00:00:00 07/06/2021 13:14:02 [id number] [facility] [place] [address] [address] 02/05/2022 00:00:00 02/05/2022 11:31:08 [id number] Leann Oneill MD [facility] [address] [facility] [place] [address] 12/06/2022 11:40:07 12/06/2022 13:05:12 Essential hypertension 42609445 I10 watch Hyperlipidemia 71842729 E78.5 labs Obesity 678927222 E66.9 advised to lose more Osteoarthr itis of knee 807173429 M17.9 otc Anemia 815890391 D64.9 stable Ex-smoker 2736420 Z87.89 1 Deep venou s thrombosis 472045066 I82.409 on MEDS FOR LIFE Abnormal testosterone 13 0677064 R94.7 Kidney disease 58876439 N08 seeing nephrology Sleep apnea 24337905 G47 .33 cpap Neuropathy 960772570 G62 .9 start pregabalin Adult heal th examination 374229032 Z00.00 repeat colonoscop y, scheduled soon due to polyppsa- 02/17FLU- OV ID Vacc- Has had all 3 vacc Screening for malignant neoplasm of prostate 763447763 Z12.5 Polyp of colon 09345141 K63.5 gets colonoscop y every year Screening for disorder 471378635 Z13.9 [id number] Leann Oneill MD [facility] [address] [place] [address] 02/17/2023 14:01:56 02/17/2023 14:36:53 Melena [id number] K92.1 improved Blood in urine 75358957 R31.9 to get cysto Kidney disease 13609688 N08 seen nephrology , cr now baseline Interstiti al lung disease 789465121 J84.9 he has appt to f/u with pulm, no symptoms [id number] Leann Oneill MD [facility] [address] [facility] [place] [address] 04/08/2023 11:53:16 04/08/2023 12:38:50 Essential hypertension 18540571 I10 under control Hyperlipidemia 85875893 E78.5 will get labs reports Obesity 074735257 E66.9 advised to lose Osteoarthr itis of knee 567728371 M17.9 otc Anemia 184318670 D64.9 stable Ex-smoker 7978019 Z87.89 1 Deep venou s thrombosis 840630966 I82.409 on MEDS FOR LIFE Abnormal testosterone 13 3337257 R94.7 get labs reports Kidney disease 44291681 N08 seeing nephrology Sleep apnea 07490413 G47 .33 cpap Neuropathy 491160843 G62 .9 pregabalin helps Adult heal th examination 995294110 Z00.00 repeat colonoscop y, scheduled soon due to polyppsa- 2022FLU- 1COV ID Vacc- Has had all 3 vacc Polyp of colon 50029346 K63.5 gets colonoscop y every year [id number] He Mccormick DPM [facility] [place] [address] [facility] [place] [address] 05/27/2023 09:54:02 05/27/2023 16:57:06 Mass of subcutaneous tissue of toe of left foot 6283510800 8045235 R22.42 left great toefollow up with pcp or oncologyre fused surgery where I have privileges recommend immediate follow up 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 [address] 08/05/2023 12:06:26 08/05/2023 12:39:57 Essential hypertension 25728960 I10 under control Hyperlipidemia 70403035 E78.5 under control Obesity 429097550 E66.9 advised to lose Osteoarthr itis of knee 865903858 M17.9 otc Anemia 516584845 D64.9 stable Ex-smoker 2305456 Z87.89 1 Deep venou s thrombosis 408066196 I82.409 meds for life Abnormal testosterone 13 1309060 R94.7 get labs reports Kidney disease 37819571 N08 seeing nephrology Sleep apnea 79608829 G47 .33 cpap Neuropathy 756625037 G62 .9 pregabalin helps Adult heal th examination 069081214 Z00.00 repeat colonoscop y, scheduled soon due to polyppsa- - 1COV ID Vacc- Has had all 3 vacc Polyp of colon 99907189 K63.5 gets colonoscop y 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 6 on cytoxan [id number] Leann Oneill MD [facility] [address] [facility] [place] [address] 12/10/2023 11:50:33 12/10/2023 13:11:37 Essential hypertension 65359139 I10 watch Hyperlipidemia 36213038 E78.5 under control Obesity 082640524 E66.9 advised to lose Osteoarthr itis of knee 767632408 M17.9 otc Anemia 841714672 D64.9 stable Ex-smoker 2501707 Z87.89 1 Deep venou s thrombosis 448691474 I82.409 meds for life, Eliquis Abnormal testosterone 13 7785125 R94.7 Kidney disease 80297327 N08 seeing nephrology Sleep apnea 77029639 G47 .33 cpap Neuropathy 439355236 G62 .9 pregabalin helps some Adult heal th examination 398109337 Z00.00 repeat colonoscop y,PSA- 2022FLU1COV ID Vacc- Has had all 3 vacc Polyp of colon 87845981 K63.5 needs colonoscop y , not sure when Interstiti al lung disease 988955514 J84.9 autoimmune , on meds, seeing pulm at [facility] 08424857 I77. 6 on cytoxan Screening for malignant neoplasm of prostate 202631788 Z12.5 Screening for disorder 592329414 Z13.9 [id number] Leann Oneill MD [facility] [address] [place] [address] 04/08/2024 09:06:19 04/08/2024 09:55:47 Essential hypertension 75248131 I10 under control Hyperlipidemia 44596607 E78.5 under control Obesity 761171362 E66.9 advised to lose Osteoarthr itis of knee 429889080 M17.9 otc Anemia 121083953 D64.9 stable Ex-smoker 7331921 Z87.89 1 Deep venou s thrombosis 819609279 I82.409 meds for life, Eliquis Abnormal testosterone 13 3395747 R94.7 Kidney disease 90058107 N08 seeing nephrology Sleep apnea 72915935 G47 .33 cpap Neuropathy 124835902 G62 .9 pregabalin helps Adult heal th examination 611574616 Z00.00 colonoscop y 2022 per himPSA- 2022FLU4COV ID Vacc- Has had all 3 vacc Polyp of colon 44756057 K63.5 needs colonoscop y , Interstiti al lung disease 521209351 J84.9 autoimmune , on meds, seeing pulm at [facility] 44896214 I77. 6 on cytoxan Erectile dysfunction 860 893994 F52.21 Health Concerns Section Related Observation LastModified by Organization Detai ls LastModified Time None Recorded Concern Status LastModified by Organization Details LastModified Time None Recorded Advance Directives Directive N: paperwork given 12/10/2023 Payers Encounter Date Sequence Insurance Name Policy Number Policy Virk Covered Member ID Virk Member ID Guarantor Name 04/08/2023 1 [place] Britton R Morales Sr [id number] Britton R Clifton 04/08/2023 2 [employer] [place] (MEDICARE SUPPLEMENT) Britton R Morales [id number] Britton R Clifton 05/27/2023 1 [place] Britton R Clifton Sr [id number] Britton R Clifton 05/27/2023 2 [employer] [place] (MEDICARE SUPPLE[place]) Britton R Morales [id number] Britton R Clifton 08/05/2023 1 [place] Britton R Clifton Sr [id number] Britton R Morales 08/05/2023 2 [employer] [place] (MEDICARE [place]PP[place]) Britton R Clifton [id number] Britton R Clifton 12/10/2023 1 [place] Britton R Morales Sr [id number] Britton R Morales 12/10/2023 2 [employer] [place] (MEDICARE SUPPLE[place]) Britton R Morales [id number] Britton R Clifton 04/08/2024 1 [place] Britton R Morales Sr [id number] Britton R Morales 04/08/2024 2 [employer] [place] (MEDICARE SUPPLE[place]) Britton R Morales [id number] Britton R Clifton Notes Date Note Type Note Provider Name [...] showed mild arthritis Leann Oneill MD [address] [facility] [address], [place], [address], [facility] [employer] 04/08/2023 12:38:32 05/27/2023 text/html Patient is a [...] lip. Patient denies any other complaints. He Mccormick, KARTIK [address], [place], [address], [employer] 05/27/2023 13:49:37 08/05/2023 text/html Here today for [...] started on meds Leann Oneill MD [address], [place], [address], [employer] 08/05/2023 12:38:15 12/10/2023 text/html Here today for [...] showed mild arthritis Leann Oneill MD [address] [facility] [address], [place], [address], [place] [facility] [employer] 12/10/2023 17:41:09 04/08/2024 text/html Here today for [...] showed mild arthritis Leann Oneill MD [address] [facility] [address], [place], [address], [place] [facility] [employer] [facility] [employer] 04/08/2024 09:49:23
--- OUTSIDE RECORDS SUMMARY | 2024-07-15 12:37 | XMS_ITS | Encounter Summary ---
Author Organization [facility] Address [address] [place] [address] Phone Care Team Providers Care Licensed Architect Name Role Phone Scott Oneill MD Primary Care Provider Kev Prince DO Unavailable [phone] Tavo Mishra MD Unavailable [phone] Gilmer Barnard MD Unavailable [phone] Kev Moser MD Unavailable [phone] Encounter Details Date Type Department Care Team (Late st Contact Info) Description 08/11/2020 Telephone [facility] [address] [place] [address] Kev Moser MD [address] [place] [phone] Social History Tobacco Use Types Packs/Day [...] on file 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 I have a call out to get those labs faxed over but were there other labs that you needed that [facility] did not draw on Friday? documented in this encounter Plan of Treatment Upcoming Encounters Date Type Department Care Team (Late st Contact Info) Description 08/04/2024 11:10 AM CDT Lab [facility] [address] [address] Lab, [facility] 08/04/2024 11:15 AM CDT Office Visit [facility] [address] [phone] Kev Moser MD [address] [place] [phone] 08/04/2024 11:30 AM CDT Clinical Support [facility] [address] [phone] Nurse, [facility] documented as of this encounter Visit Diagnoses Not on filedocumented in this encounter Additional Health Concerns Assessment Noted Time PHQ-9 Depression Total Score: 0 08/12/19 21 11:41 AM CDT documented as of this encounter Care Teams Licensed Architect Relationship Specialty Start Date End Date Scott nOeill MD PCP - General Internal Medicine 04/29/17 Kev Prince DO Gastroenterology 04/29/17 12/09/22 Tavo Mishra MD [address] [facility] [address] [place] [address] [phone] Internal Medicine 04/29/17 Gilmer Barnard MD [address] [place] [address] [phone] Consulting Physician Internal Medicine 08/28/17 4 Kev Moser MD [address] [place] [phone] Consulting Physician Oncology 02/09/20 documented as of this encounter
--- OUTSIDE RECORDS SUMMARY | 2024-07-15 12:37 | XMS_ITS | Encounter Summary ---
Author Organization [facility] Address [address] [place] [address] Phone Care Team Providers Care Truck Shop Supervisor Name Role Phone Scott Oneill MD Primary Care Provider Tavo Mishra MD Unavailable [phone] Kev Moser MD Unavailable [phone] Reason for Visit * Reason Onset Date Comments canopy call/bulk picker Eliquis samples 05/26/2024 Encounter Details Date Type Department Care Team (Late st Contact Info) Description 05/26/2024 Telephone [facility] [address] [place] [address] Kev Moser MD [address] [place] [phone] canopy call/bulk picker Eliquis samples Social History Tobacco Use [...] on file 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 ODONTIC TECHNICIAN ASSISTANT * Telephone Encounter - Suzie Black RN - 05/26/2024 1:57 PM CST pt called to speak to Fritz regarding Eliquis samples [phone] Spoke with patient he will bulk picker Eliquis samples today by 3pm. ODONTIC TECHNICIAN ASSISTANT documented in this encounter Plan of Treatment Upcoming Encounters Date Type Department Care Team (Late st Contact Info) Description 08/04/2024 11:10 AM CDT Lab [facility] [address] [phone] Lab, [facility] 08/04/2024 11:15 AM CDT Office Visit [facility] [address] [phone] Kev Moser MD [address] [place] [phone] 08/04/2024 11:30 AM CDT Clinical Support [facility] [address] [phone] Nurse, [facility] documented as of this encounter Visit Diagnoses Not on filedocumented in this encounter Additional Health Concerns Assessment Noted Time PHQ-9 Depression Total Score: 0 11/25/19 21 11:34 AM CDT documented as of this encounter Care Teams Truck Shop Supervisor Relationship Specialty Start Date End Date Scott Oneill MD PCP - General Internal Medicine 04/29/17 Tavo Mishra MD [address] [address] Internal Medicine 04/29/17 Kev Moser MD [address] [place] [phone] Consulting Physician Oncology 02/09/20 documented as of this encounter
--- OUTSIDE RECORDS SUMMARY | 2024-07-15 12:37 | XMS_ITS | Encounter Summary ---
Author Organization [facility] Address [address] [place] [address] Phone Care Team Providers Care Factory Process Workers Name Role Phone Scott Oneill MD Primary Care Provider [phone] Kev Prince DO Unavailable [phone] Tavo Mishra MD Unavailable [phone] Gilmer Barnard MD Unavailable [phone] Kev Moser MD Unavailable [phone] Encounter Details Date Type Department Care Team (Late st Contact Info) Description 12/31/2019 Telephone [facility] [place] [address] [place] [address] Kev Moser MD [address] [place] [phone] Social History Tobacco Use Types Packs/Day [...] on file 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 Gender Identity Not on file Sexual [...] AM CDT Lab [facility] [address] [phone] Lab, [facility] 08/04/2024 11:15 AM CDT Office Visit [facility] [address] [phone] Kev Moser MD [address] [place] [phone] 08/04/2024 11:30 AM CDT Clinical Support [facility] [address] [phone] Nurse, [facility] documented as of this encounter Visit Diagnoses Not on filedocumented in this encounter Additional Health Concerns Assessment Noted Time PHQ-9 Depression Total Score: 0 10/04/19 20 2:45 PM CDT documented as of this encounter Care Teams Factory Process Workers Relationship Specialty Start Date End Date Scott Oneill MD PCP - General Internal Medicine 04/29/17 Kev Prince DO Gastroenterology 04/29/17 12/09/22 Tavo Mishra MD [address] [place] [phone] Internal Medicine 04/29/17 Gilmer Barnard MD [address] [place] [address] Consulting Physician Internal Medicine 08/28/17 4 Kev Moser MD [address] [place] [phone] Consulting Physician Oncology 02/09/20 documented as of this encounter
--- OUTSIDE RECORDS SUMMARY | 2024-07-15 12:37 | XMS_ITS | Referral Summary ---
Author Organization [facility] [address] Address [address] [place] [address] Care Team Providers Care Ground Water Contractor Name Role Phone Scott Oneill MD Primary Care Provider [phone] Encounters Date Type Department Care Team Description 06/02/2024 Orders Only [facility] RHEUMATOLOGY Scanning, Provider 04/20/2024 Orders Only [facility] Rheumatology [address] [facility] Advanced Medicine 5th [place] [address] [place] [address] Tiffanie Weiss MD 04/16/2024 Documentation [facility] Pulmonary [address] 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 Not on file Not on file Not on file Last Filed Vital Signs Vital Sign Reading Time Taken Comments Blood Pressure 165/75 03/17/2024 3:28 PM ORACLE DEVELOPER Pulse 56 03/17/2024 3:28 PM ORACLE DEVELOPER Temperature 36.6 C (97.8 F) 03/17/2024 3:28 PM ORACLE DEVELOPER Respiratory Rate 18 02/05/2024 2:17 PM ORACLE DEVELOPER Oxygen Saturation 97% 03/17/2024 3:28 PM ORACLE DEVELOPER Inhaled Oxygen Concentration - - Weight 105.6 kg (232 lb 12.8 oz) 03/17/2024 3:28 PM ORACLE DEVELOPER Height 166.4 cm (5' 5.5 ) 03/17/2024 3:28 PM ORACLE DEVELOPER Body Mass Index 38.15 03/17/2024 3:28 PM ORACLE DEVELOPER Plan of Treatment Not on file Procedures Procedure Name Priority Date/Time Associated Diagnosis Comments SCAN - LABS 06/02/2024 from Last 3 Months Results * SCAN - LABS (06/02/2024) Provider Scanning Edited Result - Final from Last 3 Months Insurance MEDICARE [employer] [place] [employer] [place] MED[place] Advance Directives For more information, please contact: [phone] * Full Code (Latest Code Status on File) Date Activated Date Inactivated Comments 07/17/2020 8:05 PM 07/19/2020 7:41 PM * Full Code Date Activated Date Inactivated Comments 06/08/2020 6:02 PM 06/15/2020 7:20 PM Healthcare Agents on File Name Relationship Healthcare Agent Relationship Communication Shyann Nielsen Spouse First Alternat e Health Care Agent Care Teams Ground Water Contractor Relationship Specialty Start Date End Date Scott Oneill MD PCP - General Internal Medicine 04/27/20
[2024-07-15 12:58] LABS: Basophils Percent Auto 0.5 % (0.2-1.2); Eosinophils Absolute Auto 0.2 K/mm3 (0-0.3); Eosinophils Percent Auto 2.9 % (0-4.4); Hematocrit 36.5 % (42.0-52.0); Hemoglobin 10.6 g/dL (14.0-18.0); Immature Granulocyte Absolute 0.06 K/mm3 (0.00-0.031); Immature Granulocyte Percent A 0.9 % (0-0.5); Lymphocytes Absolute Auto 0.71 K/mm3 (0.9-3.2); Lymphocytes Percent Auto 10.8 % (18.3-44.2); Mean Corpuscular Volume 96.3 fl (80-100); Mean Platelet Volume 9.6 fl (7.4-10.4); Monocytes Absolute Auto 0.6 K/mm3 (0.1-0.6); Monocytes Percent Auto 8.8 % (2.6-8.5); Neutrophils Percent Auto 76.1 % (45.5-73.1); Platelet Count Result 135 k/mm3 (150-375); Red Blood Count 3.79 M/mm3 (4.6-6.20); Red Cell Distribution Width 14.6 % (11.5-14.5); White Blood Count 6.6 K/mm3 (4.5-10.0)
[2024-07-15 13:16] LABS: Add Urine Microscopic? NO; Appearance Urine Clear (Clear); Bilirubin Urine Negative (Negative); Blood Urine Negative (Negative); Color Urine Yellow (Yellow); Glucose Urine UA Negative (Negative); Ketones Urine Negative (Negative); Leukocyte Esterase Ur Negative LEU/UL (Negative); Nitrate Urine Negative (Negative); Protein Urine Negative (Negative); Urobilinogen Urine 0.2 mg/dL (<2.0)
[2024-07-15 13:23] LABS: Creatinine Urine 48.4 mg/dL; Total Protein Urine Random 7 mg/dL; Ur Ttl Prot Creatinine Ratio 0.14 mg/mg (0-0.20)
[2024-07-15 13:30] LABS: Erythrocyte Sedimentation Rate 55 mm/hr (0-20)
[2024-07-15 13:55] LABS: Anion Gap 10 mmol/L (4-12); Blood Urea Nitrogen 43 mg/dL (9-20); CRP < 0.5 mg/dL (<1.0); Calcium 8.3 mg/dL (8.4-10.2); Carbon Dioxide 20 mmol/L (22-30); Chloride 106 mmol/L (98-107); Estimated Glomerular Filt Rate 25; Glucose 97 mg/dL (65-110); Potassium 5.6 mmol/L (3.4-5.0); Sodium 136 mmol/L (137-145)
[2024-07-16 15:58] LABS: Myeloperoxidase Ab <1.0 AI
== END 2024-07-15 12:09 | disposition home or self-care (01) ==
PROVIDERS: PCP Internal Medicine; Referring Provider Internal Medicine; Visit Provider Internal Medicine
DX: Z79.899 Other long term (current) drug therapy (principal)
CPT/HCPCS: 36415; 80048; 81003; 82570; 84156; 85025; 85652; 86036; 86140

== ENCOUNTER 2024-08-24 11:26 | Outpatient (CLI) | payer MEDICARE, OTHER, SELFPAY ==
--- OUTSIDE RECORDS SUMMARY | 2024-08-24 11:32 | XMS_ITS | CONTINUITY OF CARE DOCUMENT ---
Author Name shabbir shea Address Unknown Organization [facility] Address [address] [place] [address] [address] [place] [address] Phone [phone] Care Team Providers Care Trestle Mechanic Name Role Phone Carla [place], [place] Franz Unavailable [phone] Scott Oneill MD Unavailable Scott Oneill MD Unavailable [phone] INSURANCE PROVIDERS Payer name Policy type / Coverage type [place] red green party ID [employer] Commercial insura Contact At Once! [id number] [place] [employer] Medicare [id number]
--- OUTSIDE RECORDS SUMMARY | 2024-08-24 11:32 | XMS_ITS | Clinical Summary ---
Author Organization [facility] Address [address] [address] Phone Care Team Providers Care Gyroscopic Instrument Mechanic Name Role Phone Scott Oneill MD Primary Care Provider Tavo Mishra MD Unavailable [phone] Kev Moser MD Unavailable [phone] Allergies No known active allergies Medications Calcium [...] 2 times daily. Active ergocalciferol (VITAMIN D) 43514 UNIT Capsule Take 50,000 Units by mouth once a week. Active cyanocobalamin 1000 MCG Tablet Take 1 tablet by mouth daily 30 Tab 07/25/19 19 Active Additional Information Patient not taking.Reported on 08/04/2024 traMADol (ULTRAM) 50 MG Tablet 0 06/18/19 [...] (ROCALTROL) 0.25 MCG Capsule 11/12/19 24 Active hydroCHLOROthiazid e 25 MG Tablet Take 25 mg by mouth daily. 06/17/19 25 Active SV Iron 325 (65 Fe) MG TabletIndications: Other autoimmune hemolytic anemia,Anemia in stage 3a chronic kidney disease (HCC),Iron deficiency anemia due to sideropenic dysphagia Take 1 tablet by mouth once daily 30 Tablet 07/13/19 25 Active apixaban (ELIQUIS) 5 MG TabletIndications: History of Thromboembolic Disease Take 1 Tablet by mouth 2 times daily. Indications: History of Disease involving a Thrombosis or an Embolism 56 Tablet 07/24/19 25 Active sulfamethoxazole-t rimethoprim DS (BACTRIM DS, SEPTRA DS) 800-160 MG TabletIndications: Urinary Tract Infection Take 1 Tablet by mouth 2 times daily for 3 days. Indications: Urinary Tract Infection 6 Tablet 08/07/19 25 025 Active Problems Patient Care Coordination No te [...] Encounters Date Type Department Care Team Description 08/06/2024 Results Follow-Up [facility] [address] [phone] Tanvi Tobar APRN, KEYANA CULTURE, URINE 08/04/2024 11:30 AM CDT Clinical Support [facility] [address] [phone] Nurse, [facility] [place] Vitamin B 12 deficiency (Primary Dx); Urinary tract infection without hematuria, site unspecified 08/04/2024 11:15 AM CDT Office Visit [facility] [address] [phone] Tanvi Tobar APRN, KEYANA Anemia in stage 3a chronic kidney disease (HCC) (Primary Dx); Anemia in stage 3b chronic kidney disease (HCC); Iron deficiency anemia due to sideropenic dysphagia; Vitamin B 12 deficiency; Other autoimmune hemolytic anemia; Urinary tract infection without hematuria, site unspecified 08/04/2024 11:10 AM CDT Lab [facility] [address] [phone] Lab, [facility] [place] Other autoimmune hemolytic anemia; Vitamin B 12 deficiency 08/04/2024 Travel 07/22/2024 3:15 PM CDT Clinical Support [facility] [address] [phone] Nurse, [facility] [place] Other autoimmune hemolytic anemia (Primary Dx) 07/22/2024 Travel 07/22/2024 Telephone [facility] [address] [phone] Kev Moser MD canopy call/Eliquis samples 07/12/2024 Results Follow-Up [facility] [address] [phone] Sindi Qiu APRN, KEYANA CMP (COMPREHENSIVE METABOLIC PANEL), COMPLETE BLOOD COUNT (CBC) WITH DIFF, ERYTHROCYTE SEDIMENTATION RATE (ESR) 07/12/2024 Refill [facility] [address] [phone] Tanvi Tobar APRN, TRUCKER HAND Medication Refill 07/07/2024 11:15 AM CDT Clinical Support [facility] [address] [phone] Nurse, Cc Marianne Stage 3a chronic kidney disease (HCC) (Primary Dx); Vitamin B 12 deficiency 07/07/2024 11:00 AM CDT Office Visit [facility] [address] [phone] Tanvi Tobar APRN, TRUCKER HAND Other autoimmune hemolytic anemia (Primary Dx); Vitamin B 12 deficiency 07/07/2024 10:45 AM CDT Lab [facility] [address] [phone] Lab, Cc [place]ne Other autoimmune hemolytic anemia 07/07/2024 Travel 06/24/2024 9:00 AM CDT Clinical Support [facility] [address] [phone] Nurse, [facility] [place] Other autoimmune hemolytic anemia (HCC) (Primary Dx) 06/24/2024 Travel 06/23/2024 Telephone [facility] [address] [phone] Kev Moser MD Canopy Call / Eliquis 06/15/2024 Refill [facility] [address] [phone] Tanvi Tobar APRN, TRUCKER HAND Medication Refill 06/09/2024 11:30 AM CDT Clinical Support [facility] [address] [phone] Nurse, [facility] [place] Vitamin B 12 deficiency (Primary Dx) 06/09/2024 11:15 AM CDT Office Visit [facility] [address] [phone] Sindi Qiu SYSTEM TRAINER, TRUCKER HAND Other autoimmune hemolytic anemia (HCC) (Primary Dx) 06/09/2024 11:00 AM CDT Lab [facility] [address] [phone] Lab, [facility] Other autoimmune hemolytic anemia (HCC); Stage 3a chronic kidney disease (HCC); Vitamin B 12 deficiency 06/09/2024 Travel from Last 3 Months Immunizations Immunization [...] file 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 Gender Identity Not on file Sexual Orientation Not on file Last Filed Vital Signs Vital Sign Reading Time Taken Comments Blood Pressure 144/70 08/04/2024 10:53 AM CDT Pulse 72 08/04/2024 10:53 AM CDT Temperature 36.9 C (98.4 F) 08/04/2024 10:53 AM CDT Respiratory Rate 18 08/04/2024 10:5 3 AM CDT Oxygen Saturation 93% 08/04/2024 10: 53 AM CDT Inhaled Oxygen Concentration - - Weight 104.4 kg (230 lb 1.6 oz) 025 10:53 AM CDT Height 165.1 cm (5' 5) 08/04/2024 10:5 3 AM CDT Body Mass Index 38.29 08/04/2024 10:53 AM CDT Plan of Treatment Upcoming Encounters Date Type Department Care Team (Late st Contact Info) Description 09/01/2024 11:00 AM CDT Lab [facility] [address] [phone] Lab, [facility] 09/01/2024 11:15 AM CDT Office Visit [facility] [address] [phone] Kev Moser MD [address] [place] [phone] 09/01/2024 11:30 AM CDT Clinical Support [facility] [address] [phone] Nurse, [facility] Health Maintenance Due Date Last Done [...] on patient's age to complete this topic Human Papillomavirus (HPV) Immunization Aged Out No longer eligible based on patient's age to complete this topic Meningococcal Immunization (ACWY) Aged Out No longer eligible based on patient's age to complete this topic Rotavirus Immunization Aged Out No lo nger eligible based on patient's age to complete this topic Procedures Procedure Name Priority Date/Time Associated Diagnosis Comments CULTURE, URINE Routine 08/04/2024 11:27 AM CDT Urinary tract infection without hematuria, site unspecified COMPLETE BLOOD COUNT (CBC) WITH DIFF Routine 08/04/2024 10:37 AM CDT Other autoimmune hemolytic anemia Vitamin B 12 deficiency CMP (COMPREHENSIVE METABOLIC PANEL) Routine 08/04/2024 10:37 AM CDT Other autoimmune hemolytic anemia Vitamin B 12 deficiency VITAMIN B12 Routine 08/04/2024 10:37 AM CDT Other autoimmune hemolytic anemia Vitamin B 12 deficiency FOLIC ACID (FOLATE) Routine 08/04/2024 1 0:37 AM CDT Other autoimmune hemolytic anemia Vitamin B 12 deficiency C-REACTIVE PROTEIN (CRP) QUANT Routine 07/07/2024 10:47 AM CDT URINALYSIS WITH MICROSCOPIC, C/S IF INDICATED [place] Routine 07/07/2024 10:47 AM CDT ANCA (VASCULITIS) [place], [place] [id number] Routine 07/07/2024 10:47 AM CDT CULTURE, URINE [...] 10:51 AM CDT ANCA (VASCULITIS) [place], [place] [id number] Routine 06/09/2024 10:51 AM CDT ERYTHROCYTE SEDIMENTATION [...] kidney disease (HCC) Vitamin B 12 deficiency from Last 3 Months Results * (ABNORMAL) CULTURE, URINE (08/04/2024 11:27 AM CDT) Only the most recent of2 resultswithin the time period is included. URINE CULTURE, ROUTINE FINAL REPORT(A) [facility]IC VERIFICATION [facility] RESULT 1 ESCHERICHIA COLI(A) [facility]IC VERIFICATION [facility] Comment: CEFAZOLIN WITH AN JOSE <=16 PREDICTS SUSCEPTIBILITY TO THE ORAL AGENTS CEFACLOR, CEFDINIR, CEFPODOXIME, CEFPROZIL, CEFUROXIME, CEPHALEXIN, AND LORACARBEF WHEN USED FOR THERAPY OF UNCOMPLICATED URINARY TRACT INFECTIONS DUE TO E. COLI, KLEBSIELLA PNEUMONIAE, AND PROTEUS MIRABILIS. 10,000-25,000 COLONY FORMING UNITS PER ML ANTIMICROBIAL SUSCEPTIBILITY COMMENT [facility] Comment: S = SUSCEPTIBLE; I = INTERMEDIATE; R = RESISTANT P = POSITIVE; N = NEGATIVE MICS ARE EXPRESSED IN MICROGRAMS PER ML ANTIBIOTIC RSLT#1 RSLT#2 RSLT#3 RSLT#4 AMOXICILLIN/CLAVULANIC ACID S AMPICILLIN S CEFAZOLIN S CEFEPIME S CEFOXITIN S CEFPODOXIME S CEFTRIAXONE S CIPROFLOXACIN S ERTAPENEM S GENTAMICIN S LEVOFLOXACIN S MEROPENEM S NITROFURANTOIN S PIPERACILLIN/TAZOBACTAM S TETRACYCLINE S TOBRAMYCIN S TRIMETHOPRIM/SULFA S Culture URINE SPECIMEN OBTAINED BY CLEAN CATCH PROCEDURE / Unknown 08/04/2024 11:27 AM CDT Narrative [facility] - 08/08/2024 3:07 AM CDT TESTING PERFORMED AT: [] [facility], [address] [place] [address], [place], [address], PHONE: [phone], LIGHT OIL OPERATOR: NAVEEN VEGA, PHD Release to patient->Immediate us Tanvi Tobar SYSTEM TRAINER, TRUCKER HAND MICROBIOLOGY - GENERA L ORDERABLES Final Result [facility] VERIFICATION [facility] [place] [address], * VITAMIN B12 (08/04/2024 10:37 AM CDT) Only the most recent of2 resultswithin the time period is included. Vitamin B12 711 180 - 914 pg/mL [facility] Blood 08/04/2024 10:3 7 AM CDT [facility] - 08/05/2024 3:02 PM CDT Release to patient->Immediate Tanvi Tobar SYSTEM TRAINER, TRUCKER HAND CHEMISTRY ORDERABLES Final Result Performing Organization Address City/[facility]/ZIP Co de Phone Number [facility] [address] [place] [address], * FOLIC ACID (FOLATE) (08/04/2024 10:37 AM CDT) Only the most recent of2 resultswithin the time period is included. Folate 14.45 >=5.90 ng/mL [facility] Blood 08/04/2024 10:3 7 AM CDT [facility] - 08/05/2024 3:02 PM CDT Release to patient->Immediate IS THE PATIENT REQUIRED TO BE FASTING FOR 12 HOURS?->No Tanvi Tobar SYSTEM TRAINER, TRUCKER HAND CHEMISTRY ORDERABLES Final Result Performing Organization Address City/[facility]/ZIP Co de Phone Number [facility] [address] [place] [address], * (ABNORMAL) CMP (COMPREHENSIVE METABOLIC PANEL) (08/04/2024 10:37 AM CDT) Only the most recent of3 resultswithin the time period is included. Glucose 137(H) 70 - 105 mg/dL [facility] Blood Urea Nitrogen 38(H) 7 - 25 mg/dL [facility] Creatinine 2.3(H) 0.7 - 1.3 mg/dL [facility] Sodium 137 136 - 145 mEq/L [facility] Potassium 4.7 3.5 - 5.1 mEq/L [facility] Chloride 104 98 - 107 mEq/L [facility] Bicarbonate 21 21 - 31 mEq/L [facility] Total Bilirubin 0.7 0.3 - 1.0 mg/dL [facility] Alk. Phosphatase 76 34 - 104 U/L [facility] Aspartate Aminotransferase 12(L) 13 - 39 U/L [facility] Alanine Aminotransferase 11 7 - 52 U/L [facility] Total Protein 6.1(L) 6.4 - 8.9 g/dL [facility] Albumin 4.2 3.5 - 5.7 g/dL [facility] Calcium 8.3(L) 8.6 - 10.3 mg/dL [facility] Anion Gap 16.7(H) 7.0 - 15.0 mEq/L [facility] Globulin 1.9(L) 2.0 - 3.5 g/dL [facility] EGFR 30(L) >60 ml/min/1. 73m2 [facility] Comment: This eGFR is calculated using 2020 CKD-EPI Creatinine equation without race modifier based on the NKF-ASN task force recommendations Equation: tUHP=879*min(SCr/k,1)a*max(SCr/k,1)-1.200*0.9938Age*1.012 (if female), where SCr is serum creatinine, k is 0.7 for females and 0.9 for males, and a is -0.241 for females and -0.302 for males Blood 08/04/2024 10:3 7 AM CDT Narrative [facility] - 08/04/2024 11:46 AM CDT Release to patient->Immediate IS THE PATIENT REQUIRED TO BE FASTING FOR 8 HOURS?->No us Tanvi Tobar SYSTEM TRAINER, TRUCKER HAND CHEMISTRY ORDERABLES Final Result CANCER ASIC VERIFICATION [facility] [place] [address], * (ABNORMAL) COMPLETE BLOOD COUNT (CBC) WITH DIFF (08/04/2024 10:37 AM CDT) Only the most recent of3 resultswithin the time period is included. WBC 5.7 4.0 - 10.0 10*3/uL [facility] ASIC VERIFICATION ENG[facility] HGB 10.9(L) 13.7 - 17.5 g/dL [facility] ASIC VERIFICATION ENG[facility] HCT 34.8(L) 40.1 - 51.0 % [facility]ER ASIC VERIFICATION ENGINEER [facility] PLT 155(L) 163 - 369 10*3/uL [facility] MPV 10.3 9.4 - 12.4 fL [facility] ASIC VERIFICATION ENG[facility] RBC 3.84(L) 4.63 - 6.08 10*6/uL [facility] MCV 91 79 - 95 fL [facility] ASIC VERIFICATION ENG[facility] MCH 28.4 25.6 - 32.2 pg [facility] ASIC VERIFICATION ENG[facility] MCHC 31.3(L) 32.2 - 36.5 g/dL [facility] RDW 14.0 11.6 - 14.4 % [facility]ER ASIC VERIFICATION ENG[facility] Absolute Neutrophil Count 4,609 cells/uL [facility] Absolute Seg Count 4,609 1,440 - 6,600 cells/uL [facility] Absolute Lymph Count 569(L) 760 - 4,000 cells/uL [facility] Absolute [place] Count 455 160 - 1,200 cells/uL [facility] Absolute Baso Count 57 0 - 100 cells/uL CAN[facility]ER ASIC VERIFICATION ENG[facility] Segmented Neutrophils 81(H) 36 - 66 % CANCER ASIC VERIFICATION ENGINE[facility] Lymphocytes 10(L) 19 - 40 % [facility] Monocytes 8 4 - 12 % [facility] [place] [facility] Basophils 1 0 - 1 % [facility] [place] [facility] WBC Estimate Normal CAN[facility]ER ASIC VERIFICATION ENG[facility] Platelet Estimate Low CAN[facility]ER ASIC VERIFICATION ENG[facility] RBC Morphology Normal C[facility] R ASIC VERIFICATION ENG[facility] Blood 08/04/2024 10:3 7 AM CDT Narrative [facility] - 08/04/2024 2:21 PM CDT Release to patient->Immediate Tanvi Tobar APRN, TRUCKER HAND HEMATOLOGY ORDERABLES Final Result [facility] [place] [address], [place] [phone] * ANCA (VASCULITIS) [place], [place] [id number] (07/07/2024 10:47 AM CDT) Only the most recent of2 resultswithin the time period is included. ANTI-MPO ANTIBODIES 0.2 0.0 - 0.9 UNITS [facility] ANTI-PR3 ANTIBODIES <0.2 0.0 - 0.9 UNITS [facility] CYTOPLASMIC (C-ANCA) <1:20 NEG:<1:20 TITER [facility] PERINUCLEAR (P-ANCA) <1:20 NEG:<1:20 TITER [facility] Comment: THE PRESENCE OF POSITIVE FLUORESCENCE EXHIBITING P-ANCA OR C-ANCA PATTERNS ALONE IS NOT SPECIFIC FOR THE DIAGNOSIS OF FADI'S GRANULOMATOSIS (WG) OR MICROSCOPIC POLYANGIITIS. DECISIONS ABOUT TREATMENT SHOULD NOT BE BASED SOLELY ON ANCA IFA RESULTS. THE INTERNATIONAL ANCA GROUP CONSENSUS RECOMMENDS FOLLOW UP TESTING OF POSITIVE SERA WITH BOTH IA- 3 AND MPO-ANCA ENZYME IMMUNOASSAYS. MANY 5% SERUM SAMPLES ARE POSITIVE ONLY BY EIA. REF. AM J CLIN PATHOL 1999;111:507-513. ATYPICAL PANCA <1:20 NEG:<1:20 TITER [facility] Comment: THE ATYPICAL PANCA PATTERN HAS BEEN OBSERVED IN A SIGNIFICANT PERCENTAGE OF PATIENTS WITH ULCERATIVE COLITIS, PRIMARY SCLEROSING CHOLANGITIS AND AUTOIMMUNE HEPATITIS. 07/07/2024 10:4 7 AM CDT Narrative [facility] - 07/09/2024 8:18 PM CDT TESTING PERFORMED AT: [BN] [address], [address], PHONE: [phone], LIGHT OIL OPERATOR: SHOAIB OCAMPO MD TESTING PERFORMED AT: [] [facility], [address] [facility], [place], [address], PHONE: [phone], LIGHT OIL OPERATOR: NAVEEN VEGA, PHD Tiffanie Weiss MD LAB SEND OUTS Final Result [facility]ER ASIC VERIFICATION [facility] [place] [address] [place] [address], * (ABNORMAL) URINALYSIS WITH MICROSCOPIC, C/S IF INDICATED [place] (07/07/2024 10:47 AM CDT) Urine Color Light Yellow Straw-Yel low [facility]IFICATION [facility] Urine Clarity Clear Clear [facility] ASIC VERIFICATION [facility] Urine Glucose NEG NEG mg/dL CANCER ASIC VERIFICATION ENG[facility] Urine Bilirubin NEG NEG mg/dL [facility]C ER ASIC VERIFICATION [facility] Urine Ketones NEG NEG mg/dL [facility]ER ASIC VERIFICATION ENGINE[facility] Urine Specific [place]den 1.020 1.015 - 1.020 [facility] ASIC VERIFICATION ENG[facility] Urine Blood NEG NEG mg/L [facility] Urine pH 5.0 5.0 - 8.0 [pH] CANCER ASIC VERIFICATION ENGINE[facility] Urine Protein NEG NEG mg/dL [facility] ASIC VERIFICATION ENG[facility] Urine Urobilinogen 0.2 0.2 - 1.0 mg/dL [facility]IFICATION [facility] Urine Nitrite NEG NEG [facility] ASIC VERIFICATION ENG[facility] Urine Leukocytes NEG NEG CAN [facility] ASIC VERIFICATION [facility] Urine Epithelial Cells Rare None,Rare ,Few /LPF [facility]IC VERIFICATION [facility] Urine Mucus Few(A) None /LPF [facility] Urine Cast None None /LPF [facility] Urine Bacteria Few(A) None /HPF [facility] R ASIC VERIFICATION ENGINE[facility] Urine Crystal None None /LPF [facility] ASIC VERIFICATION [facility] Urine White Blood Cells 5-10(A) 0 - 4 /HPF [facility]IFICATION [facility] Urine Red Blood Cells 0-2 0 - 2 /HPF [facility] ASIC VERIFICATION [facility] 07/07/2024 10:4 7 AM CDT us Tiffanie Weiss MD LAB SEND OUTS Final Result Performing Organization Address [facility] Co de Phone Number CANCER ASIC VERIFICATION ENG[facility] [place] [address] [place] [address], * (ABNORMAL) C-REACTIVE PROTEIN (CRP) QUANT (07/07/2024 10:47 AM CDT) Only the most recent of2 resultswithin the time period is included. CRP 7.4(H) <5.0 mg/L [facility] 07/07/2024 10:4 7 AM CDT Tiffanie Weiss MD CHEMISTRY ORDERABLES Final Resul t Performing Organization Address [facility] Co de Phone Number CANCER ASIC VERIFICATION ENG[facility]ER [facility] [address] [place] [address], * (ABNORMAL) ERYTHROCYTE SEDIMENTATION RATE (ESR) (07/07/2024 10:39 AM CDT) Only the most recent of2 resultswithin the time period is included. Erythrocyte Sedimentation Rate 44(H) 0 - 20 mm/hr [facility] 07/07/2024 10:3 9 AM CDT Sindi Qiu SYSTEM TRAINER, TRUCKER HAND HEMATOLOGY ORDERABLES Final Result Performing Organization Address City/[facility] Co de Phone Number [facility] [place] [address] [place] [address], * URINALYSIS WITH MICROSCOPIC [place] (06/09/2024 10:51 AM CDT) Urine Color Yellow Straw-Yel low [facility] ASIC VERIFICATION [facility] Urine Clarity Clear Clear [facility] ASIC VERIFICATION ENG[facility] Urine Glucose NEG NEG mg/dL [facility] ASIC VERIFICATION ENG[facility]ER [facility] Urine Bilirubin NEG NEG mg/dL CANC ASIC VERIFICATION ENG[facility] Urine Ketones NEG NEG mg/dL [facility]ER ASIC VERIFICATION ENG[facility] Urine Specific [place] 1.020 1.015 - 1.020 [facility]IFICATION [facility] Urine Blood NEG NEG mg/L [facility] Urine pH 5.0 5.0 - 8.0 [pH] [facility]IC VERIFICATION [facility] Urine Protein NEG NEG mg/dL [facility] ASIC VERIFICATION ENG[facility] Urine Urobilinogen 0.2 0.2 - 1.0 mg/dL [facility]IFICATION [facility] Urine Nitrite NEG NEG [facility]IC VERIFICATION [facility] Urine Leukocytes NEG NEG CAN [facility] ASIC VERIFICATION ENG[facility] Urine Epithelial Cells Few None,Rare ,Few /LPF [facility]IC VERIFICATION [facility] Urine Mucus None None /LPF [facility] Urine Cast None None /LPF [facility] Urine Bacteria None None /HPF [facility] R ASIC VERIFICATION ENG[facility] Urine Crystal None None /LPF [facility]ER ASIC VERIFICATION ENG[facility] Urine White Blood Cells 0-4 0 - 4 /HPF [facility] ASIC VERIFICATION ENG[facility] Urine Red Blood Cells 0-2 0 - 2 /HPF [facility] ASIC VERIFICATION ENG[facility] 06/09/2024 10:5 1 AM CDT Tiffanie Weiss MD LAB SEND OUTS Final Result [facility]ER ASIC VERIFICATION ENG[facility] [place] [address], * IRON W/ IRON BINDING CAPACITY [place] (06/09/2024 10:44 AM CDT) IRON 80 50 - 212 ug/dL [facility] ASIC VERIFICATION [facility] UIBC 185 155 - 355 ug/dL [facility] ASIC VERIFICATION ENG[facility] TIBC 265 261 - 478 ug/dl [facility] ASIC VERIFICATION ENG[facility] % Saturation 30 20 - 50 % [facility] ASIC VERIFICATION ENG[facility] 06/09/2024 10:4 4 AM CDT Narrative [facility]ER ASIC VERIFICATION ENG[facility] - 06/09/2024 11:42 AM CDT Release to patient->Immediate Sindi Qiu SYSTEM TRAINER, TRUCKER HAND LAB SEND OUTS Final Result [facility]IC VERIFICATION [facility] [address] [place] [address], [place] [phone] * RETICULOCYTE COUNT (RETIC) (06/09/2024 10:44 AM CDT) Reticulocyte count 1.76 0.51 - 1.81 % [facility] RET-He 30.10 28.20 - 36.60 pg CANCER ASIC VERIFICATION ENGINEER [facility] [facility] Comment: RET-He is a direct assessment of incorporation of iron into erythrocyte hemoglobin. It provides an indirect measure of the iron available for new erythropoiesis over past 2-4 days. Blood 06/09/2024 10:4 4 AM CDT [facility] - 06/09/2024 11:09 AM CDT Release to patient->Immediate us Sindi Qiu APRN, TRUCKER HAND HEMATOLOGY ORDERABLES Final Result [facility] [place] [address], [place] [phone] * LACTATE DEHYDROGENASE (LD) (06/09/2024 10:44 AM CDT) LDH 168 140 - 271 U/L [facility] Blood 06/09/2024 10:4 4 AM CDT [facility] - 06/09/2024 11:42 AM CDT Release to patient->Immediate us Sindi Qiu APRN, TRUCKER HAND CHEMISTRY ORDERABLES Final Result [facility] [address], [place] [phone] * (ABNORMAL) FERRITIN (06/09/2024 10:44 AM CDT) Ferritin 465(H) 24 - 336 ng/mL [facility] Blood 06/09/2024 10:4 4 AM CDT Narrative [facility] - 06/10/2024 3:03 PM CDT Release to patient->Immediate Sindi Qiu APRN, TRUCKER HAND CHEMISTRY ORDERABLES Final Result [facility] [address] [place] [address], [place] [phone] from Last 3 Months Insurance MEDICARE MEDICARE [facility] Care Teams Gyroscopic Instrument Mechanic Relationship Specialty Start Date End Date Scott Oneill MD PCP - General Internal Medicine 04/29/17 Tavo Mishra MD [address] [id number] Internal Medicine 04/29/17 Kev Moser MD [address] [place] [phone] Consulting Physician Oncology 02/09/20
--- OUTSIDE RECORDS SUMMARY | 2024-08-24 11:32 | XMS_ITS | Encounter Summary ---
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
--- OUTSIDE RECORDS SUMMARY | 2024-08-24 11:32 | XMS_ITS | Encounter Summary ---
Author Organization 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
--- OUTSIDE RECORDS SUMMARY | 2024-08-24 11:32 | XMS_ITS | Encounter Summary ---
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
--- OUTSIDE RECORDS SUMMARY | 2024-08-24 11:32 | XMS_ITS | Encounter Summary ---
Author Organization [facility] Address [address] [place] [address] Phone Care Team Providers Care Equipment Services Associate Name Role Phone Scott Oneill MD Primary Care Provider [phone] Encounter Details Date Type Department Care Team [...] on file Legal Sex Male 1:23 AM HEALTH SERVICES DIRECTOR Gender Identity Male 12/24/2023 11:25 AM [...] on filedocumented in this encounter Care Teams Equipment Services Associate Relationship Specialty Start Date End Date Scott Oneill MD PCP - General Internal Medicine 04/27/20 documented as of this encounter
--- OUTSIDE RECORDS SUMMARY | 2024-08-24 11:32 | XMS_ITS | Encounter Summary ---
Author Organization [facility] Address [address] [place] [address] Phone Care Team Providers Care Radar Signal Processing Engineer Name Role Phone Scott Oneill MD Primary Care Provider Tavo Mishra MD Unavailable [phone] Gilmer Barnard MD Unavailable [phone] Kev Moser MD Unavailable Encounter Details Date Type Department Care Team (Late st Contact Info) Description 11/04/2023 Telephone [facility] [address] [place] [address] Kev Moser MD [address] [place] [phone] Social History Tobacco Use Types Packs/Day [...] file 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 Gender Identity Not on file Sexual Orientation Not on file documented as of this encounter Plan of Treatment Upcoming Encounters Date Type Department Care Team (Late st Contact Info) Description 09/01/2024 11:00 AM CDT Lab [facility] [address] [address] [facility] 09/01/2024 11:15 AM CDT Office Visit [facility] [address] [address] Kev Moser MD [address] [place] [phone] 09/01/2024 11:30 AM CDT Clinical Support [facility] [address] [address] Nurse, [facility] documented as of this encounter Visit Diagnoses Not on filedocumented in this encounter Additional Health Concerns Assessment Noted Time PHQ-9 Depression Total Score: 0 11/25/19 21 11:34 AM CDT documented as of this encounter Care Teams Radar Signal Processing Engineer Relationship Specialty Start Date End Date Scott Oneill MD PCP - General Internal Medicine 04/29/17 Tavo Mishra MD [address] [address] Internal Medicine 04/29/17 Gilmer Barnard MD [address] [address] Consulting Physician Internal Medicine 08/28/17 4 Kev Moser MD [address] [place] [phone] Consulting Physician Oncology 02/09/20 documented as of this encounter
--- OUTSIDE RECORDS SUMMARY | 2024-08-24 11:32 | XMS_ITS | Encounter Summary ---
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
--- OUTSIDE RECORDS SUMMARY | 2024-08-24 11:32 | XMS_ITS | Encounter Summary ---
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
--- OUTSIDE RECORDS SUMMARY | 2024-08-24 11:32 | XMS_ITS | Clinical Summary ---
Author Organization [facility] [address] Address [address] [place] [address] Care Team Providers Care Entry Level Accountant Name Role Phone Scott Oneill MD Primary Care Provider [phone] Allergies No known active allergies Medications potassium chloride ER 20 mEq CR tablet Take 1 tablet (20 mEq total) by mouth 2 (two) times a day 04/06/19 21 Active furosemide (LASIX) 40 mg tablet Take 1 tablet (40 mg total) by mouth daily 03/27/20 20 Active labetaloL (NORMODYNE,RODRIGUEZ DATE) 200 mg tablet Take 1 tablet (200 mg total) by mouth 2 (two) times a day 03/26/20 20 Active apixaban (ELIQUIS) 5 mg tablet Take 1 tablet (5 mg total) by mouth 2 (two) times a day Active aspirin 81 mg enteric coated tablet Take 1 tablet (81 mg total) by mouth daily 06/16/19 21 Active tadalafiL (CIALIS) 20 mg tablet Take by mouth daily as needed 05/19/19 22 Active pregabalin (LYRICA) 50 mg capsule Take 1 capsule (50 mg total) by mouth 3 (three) times a day 01/22/20 23 Active calcium carbonate-vitam in D3 1500 mg (600 mg elemental) -200 units per tablet Take 1 tablet by mouth daily Active cyanocobalamin (Vitamin B-12) 1,000 mcg tabletIndicatio ns:Prevention of Vitamin B12 Deficiency Take 1 tablet (1,000 mcg total) by mouth daily Active sodium bicarbonate 650 mg tablet Take 1 tablet (650 mg total) by mouth 2 (two) times a day Active ferrous sulfate 325 mg (65 mg of elemental iron) tablet Take 1 tablet (325 mg total) by mouth daily 05/02/19 24 Active calcium carbonate (TUMS) 500 mg (200 mg elemental calcium) chewable tablet Take 1 tablet/chew tab (500 mg total) by mouth Active traMADoL (ULTRAM) 50 mg tablet Take 1 tablet (50 mg total) by mouth every 6 (six) hours as needed for pain Active irbesartan (AVAPRO) 300 mg tablet Take 1 tablet (300 mg total) by mouth daily 05/26/19 24 Active atorvastatin (LIPITOR) 40 mg tablet Take 1 tablet (40 mg total) by mouth daily 06/11/19 24 Active calcitRIOL (ROCALTROL) 0.25 mcg capsule TAKE 1 CAPSULE 3 TIMES WEEKLY TAKE AFTER DIALYSIS ON DIALYSIS DAYS Active HYDROcodone-cristina taminophen (NORCO) 5-325 mg per tablet Take by mouth every 6 (six) hours as needed 01/24/20 24 Active azithromycin (ZITHROMAX) 250 mg tablet TAKE 2 TABLETS BY MOUTH ON DAY 1, AND THEN TAKE 1 TABLET BY MOUTH ONCE A DAY ON DAY 2 THROUGH DAY 5 03/15/20 24 Active benzonatate (TESSALON) 200 mg capsule TAKE 1 CAPSULE BY MOUTH THREE TIMES DAILY NEEDED 03/15/20 24 Active methylPREDNISol one (MEDROL DOSEPACK) 4 mg Dosepack TAKE BY MOUTH DIRECTED ON INSIDE OF PACKAGE 03/15/20 24 Active cyclobenzaprine (FLEXERIL) 5 mg tabletIndicatio ns:Muscle spasms of both lower extremities Take 1 tablet (5 mg total) by mouth 2 (two) times a day as needed for muscle spasms (muscle pain) 20 tablet 07/16/19 25 Active mycophenolate mofetil (CELLCEPT) 500 mg tablet Take 1 tablet by mouth twice daily 60 tablet 07/27/19 25 Active hydroCHLOROthia zide (HYDRODIURIL) 25 mg tablet Take 1 tablet (25 mg total) by mouth daily 06/17/19 25 Active neomycin-polymy randell-HC (CORTISPORIN) otic solution INSTILL 4 DROPS INTO AFFECTED EAR(S) BY OTIC ROUTE 3 TIMES PER DAY Active mycophenolate mofetil (CELLCEPT) 500 mg tablet Take 1 tablet (500 mg total) by mouth 2 (two) times a day 60 tablet 3 02/05/20 24 025 Discontinued Active Problems Problem Noted Date Diagnosed Date [...] Encounters Date Type Department Care Team Description 08/10/2024 Telephone [facility] Pul[facility] Medicine [facility] [place] [address] [place] [address] Margret Cobb CMA 08/06/2024 Documentation [facility] Pulmonary [address] [place] [address] [place] [address] Polly Paulino RN 08/05/2024 3:00 PM CDT Office Visit [facility] [address] [place] [address] [place] [address] Marce Bernal MD Interstitial lung disease (HCC) (Primary Dx); Stage 3b chronic kidney disease (HCC); BMI 35.0-35.9,adult; Microscopic polyangiitis (HCC) 08/05/2024 1:22 PM CDT - 08/05/2024 11:59 PM CDT Hospital Encounter [facility] [address] [address] Microscopic polyangiitis (HCC) Discharge Disposition: Discharge to home or self care 06/02/2024 Orders Only [facility] Scanning, Provider from Last 3 Months Surgical History Surgery [...] on file 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 Gender Identity Male 12/24/2023 11:25 AM CDT Sexual Orientation Straight 12/24/2023 11 :25 AM CDT 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 Start Date Job End Date [employer], 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, 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 on file Not on file Not on file Obstetrics History Last Filed Vital Signs Vital Sign Reading Time Taken Comments Blood Pressure 132/65 08/05/2024 2:30 PM CDT Pulse 61 08/05/2024 2:30 PM CDT Temperature 36.6 C (97.8 F) 08/05/2024 2:30 PM CDT Respiratory Rate 18 08/05/2024 2:30 PM CDT Oxygen Saturation 96% 08/05/2024 2:3 0 PM CDT on 2 liters PRN and nighlty Inhaled Oxygen Concentration - - Weight 103.4 kg (228 lb) 08/05/2024 2:3 0 PM CDT Height 165.1 cm (5' 5) 08/05/2024 2:30 PM CDT Body Mass Index 37.94 08/05/2024 2:30 PM CDT Plan of Treatment Health Maintenance Due Date [...] Diagnosis Comments PULMONARY FUNCTION TEST (PFT) Routine 08/05/2024 2:05 PM CDT Microscopic polyangiitis (HCC) SCAN - LABS 06/02/2024 from Last 3 Months Results * Pulmonary Function Test - (08/05/2024 2:05 PM CDT) FVC PRE 2.56 L [facility] FVC %PRE PRED 77 % [facility] FEV1 PRE 2.25 L [facility] FEV1 %PRE PRED 88 % [facility] FEV1/FVC PRE 87.7 % [facility] Anatomical Region Laterality Modality PFT 08/05/2024 1:34 PM CDT Narrative 08/05/2024 6:28 PM CDT Table formatting from the original result was not included. [facility] Division of Pulmonary & Critical Care Medicine [address] [place] [address]; [place] [address]; [place] [id number]; [phone] Pulmonary Function Laboratory Pulmonary Stress Test Simple/Oxygen Assessment Patient: Britton Nielsen Date: 08/05/2024 : 1955 Ht: 65 IN Wt: 228 LBS Time (min) Distance (ft)/ Jurado O2 L/M SpO2 HR Brenton* BP FEV1 % Pred Rest: RA 97 60 0 122/87 2.25 88 % Walk/Bike: 1 RA 93 76 0 2 RA 93 81 0.5 3 RA 94 96 0.5 4 RA 93 96 1 5 6 min 0 sec Recovery: 1 RA 99 68 2 146/58 2.21 86% 3 RA 99 65 2 *Brenton rate of perceived exertion (1-10 dyspnea scale) Abdulaziz, CHEST 2003; 123:1408 Walk Test Summary: Six Minute Walk Distance: 450 ft Six-minute Walk Work [distance (m) x body wt (kg)]: 90768 kg.m (normal >60,000kg.m) Oxygen required to maintain SpO2 greater than 90% during six minutes of walkin L/M Comments: [id number] STOPPED DUE HIP AND LEG PAIN. Interpretation: Breathing room air, SpO2 is normal at rest and during exercise sufficient to increase pulse, SpO2 falls but remains normoxemic . On this basis, SpO2 is adequate at rest breathing room air and while walking breathing room air. This level of exercise is associated with no significant change of FEV1. By signing this report, the attending pulmonary physician certifies that he/she has personally reviewed and interpreted the graphic and numerical data associated with this pulmonary function study and has reviewed and /or edited a preliminary draft report and agrees with the written final report. PFT performed at:->[facility] Adult PFT Lab- [id number] Procedure:->Spirometry Procedure:->Oxygen Assessment Titration Pulmonary Function Test Interpretation SPIROMETRY: The FEV1 to FVC ratio is normal. The FEV1 and FVC are reduced in a pattern suggestive of a restrictive abnormality. The flow volume loop is normal. Impression: There is a mild restrictive ventilatory defect. However, measurement of lung volumes is suggested to confirm this if clinically indicated. Compared with most recent study, there has [...] and %HbO2 is age dependent. However, the [facility] Pulmonary Function Laboratory defines hypoxemia as a PaO2 <56 mm Hg or a %HbO2 <89%. Starting on March of 2024 the [facility] Pulmonary Function Laboratory utilizes race neutral GLI Global normative equations. us Marce Bernal MD PFT ORDERABLES Final Result * SCAN - LABS (06/02/2024) us Provider Scanning Edited Result - Final from Last 3 Months Insurance MEDICARE [facility] MEDICARE [facility] [place] [place] [address] MEDICARE Advance Directives For more information, please contact: [phone] * Full Code (Latest Code Status on File) Date Activated Date Inactivated Comments 07/17/2020 8:05 PM 07/19/2020 7:41 PM * Full Code Date Activated Date Inactivated Comments 06/08/2020 6:02 PM 06/15/2020 7:20 PM Healthcare Agents on File Name Relationship Healthcare Agent Relationship Communication Shyann Nielsen Spouse First Alternat e Health Care Agent Care Teams Entry Level Accountant Relationship Specialty Start Date End Date Scott Oneill MD PCP - General Internal Medicine 04/27/20
--- OUTSIDE RECORDS SUMMARY | 2024-08-24 11:32 | XMS_ITS | Encounter Summary ---
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
--- OUTSIDE RECORDS SUMMARY | 2024-08-24 11:32 | XMS_ITS | Encounter Summary ---
Author Organization [facility] Address [address] [place] [address] Phone Care Team Providers Care Consulting Practice Manager Name Role Phone Scott Oneill MD Primary Care Provider Tavo Mishra MD Unavailable [phone] Gilmer Barnard MD Unavailable [phone] Kev Moser MD Unavailable [phone] Reason for Visit * Reason Comments Medication Refill Encounter Details Date Type Department Care Team (Late st Contact Info) Description 08/26/2023 Refill [facility] [address] [address] Kev Moser MD [address] [place] [phone] Medication Refill Social History Tobacco Use [...] on file 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 Gender Identity Not on file Sexual [...] AM CDT Lab [facility] [address] [phone] [facility] 09/01/2024 11:15 AM CDT Office Visit [facility] [address] [phone] Kev Moser MD [address] [place] [phone] 09/01/2024 11:30 AM CDT Clinical Support [facility] [address] [phone] Nurse, [facility] documented as of this encounter Visit Diagnoses Not on filedocumented in this encounter Additional Health Concerns Assessment Noted Time PHQ-9 Depression Total Score: 0 11/25/19 21 11:34 AM CDT documented as of this encounter Care Teams Consulting Practice Manager Relationship Specialty Start Date End Date Scott Oneill MD PCP - General Internal Medicine 04/29/17 Tavo Mishra MD [address] [place] [id number] Internal Medicine 04/29/17 Gilmer Barnard MD [address] [place] [phone] Consulting Physician Internal Medicine 08/28/17 4 Kev Moser MD [address] [place] [phone] Consulting Physician Oncology 02/09/20 documented as of this encounter
--- OUTSIDE RECORDS SUMMARY | 2024-08-24 11:32 | XMS_ITS | Clinical Summary ---
Author Organization [facility] Address [address] [place] [address] Phone Care Team Providers Care Garde Manager Name Role Phone Bia Oneill MD Primary Care Provider Allergies No known active allergies Medications apixaban [...] 2 Active ergocalciferol (VITAMIN D2) 1.25 MG (65954 UT) capsule Take 1 capsule by mouth [...] Comments Blood Pressure 128/60 02/27/2022 1:41 PM GLACIOLOGIST Pulse 72 02/27/2022 1:41 PM GLACIOLOGIST Temperature 36.7 C (98 F) 02/27/2022 1:41 PM GLACIOLOGIST Respiratory Rate - - Oxygen Saturation - - Inhaled Oxygen Concentration - - Weight 96.2 kg (212 lb) 02/27/2022 1:41 PM GLACIOLOGIST Height 165.1 cm (5' 5) 02/27/2022 1:41 PM GLACIOLOGIST Body Mass Index 35.28 02/27/2022 1:41 PM GLACIOLOGIST Plan of Treatment Health Maintenance Due Date Last Done Comments Pneumococcal PPSV23/PCV13 65 + Years / High and Highest Risk (1 of 5 - PCV) 1974 COVID-19 Vaccine (2023-2 5 season) 2023 07/11/2020, 05/13/2020, 05/13/2020 Influenza Vaccine (Season Ended) 2024 12/29/2021, 02/06/2020, 12/27/2019, Additional history exists [facility] [id number] [facility] MEDICARE SUPPLEMENT ANDRES NEUMANN [id number] Care Teams Garde Manager Relationship Specialty Start Date End Date Bia Oneill MD [address] [address] PCP - General Internal Medicine 07/16/18
--- OUTSIDE RECORDS SUMMARY | 2024-08-24 11:32 | XMS_ITS | Encounter Summary ---
Author Organization [facility] Address [address] [place] [address] Phone Care Team Providers Care Load Dropper Name Role Phone Bia Oneill MD Primary Care Provider [phone] Reason for Visit * Reason Comments Med Refill Encounter Details Date Type Department Care Team (Late st Contact Info) Description 05/27/2021 Refill [facility] Nephrology and Hypertension [address] [facility], [address] [address] Gilmer Barnard MD [address] [facility], [address] [place] [address] Social History Tobacco Use Types Packs/Day Years [...] on file Legal Sex Male 10:04 AM [facility] Gender Identity Not on file Sexual Orientation Not on file documented as of this encounter Plan of Treatment Not on file documented as of this encounter Visit Diagnoses Not on filedocumented in this encounter Care Teams Load Dropper Relationship Specialty Start Date End Date Bia Oneill MD [address] [facility] [address] [place] [address] PCP - General Internal Medicine 07/16/18 documented as of this encounter
--- OUTSIDE RECORDS SUMMARY | 2024-08-24 11:32 | XMS_ITS | Encounter Summary ---
Author Organization [facility] Address [address] [place] [address] Phone Care Team Providers Care Zoning Assistant Name Role Phone Scott Oneill MD Primary Care Provider [phone] Tavo Mishra MD Unavailable [phone] Gilmer Barnard MD Unavailable [phone] Kev Moser MD Unavailable Reason for Visit * Reason Comments Medication Refill Encounter Details Date Type Department Care Team (Late st Contact Info) Description 07/01/2023 Refill [facility] [place] [facility] [address] [place] [phone] Sindi Qiu, FINANCE BUSINESS PARTNER, HOSTED SERVICES ANALYST [address] [place] [address] Medication Refill Social History Tobacco [...] on file 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 Gender Identity Not on file Sexual Orientation [...] AM CDT Lab [facility] [address] [phone] Lab, [facility] 09/01/2024 11:15 AM CDT Office Visit [facility] [address] [phone] Kev Moser MD [address] [place] [phone] 09/01/2024 11:30 AM CDT Clinical Support [facility] [address] [phone] Nurse, [facility] documented as of this encounter Visit Diagnoses Not on filedocumented in this encounter Additional Health Concerns Assessment Noted Time PHQ-9 Depression Total Score: 0 11/25/19 21 11:34 AM CDT documented as of this encounter Care Teams Zoning Assistant Relationship Specialty Start Date End Date Scott Oneill MD PCP - General Internal Medicine 04/29/17 Tavo Mishra MD [address] [place] [phone] Internal Medicine 04/29/17 Gilmer Barnard MD [address] [place] [phone] Consulting Physician Internal Medicine 08/28/17 4 Kev Moser MD [address] [place] [phone] Consulting Physician Oncology 02/09/20 documented as of this encounter
--- OUTSIDE RECORDS SUMMARY | 2024-08-24 11:32 | XMS_ITS | Clinical Summary ---
Author Organization [facility] Address [address] [place] [address] Care Team Providers Care Solid Waste Truck Driver Name Role Phone Scott Oneill MD Primary Care Provider [phone] Allergies No known active allergies Medications atorvastatin [...] on file Legal Sex Male 9:59 AM INFORMATICS NURSE Gender Identity Not on file Sexual Orientation Not on file Last Filed Vital Signs Vital Sign Reading Time Taken Comments Blood Pressure 146/58 05/02/2017 10:20 AM INFORMATICS NURSE Pulse 103 05/02/2017 10:20 AM INFORMATICS NURSE Temperature 36.9 C (98.5 F) 05/02/2017 10:20 AM INFORMATICS NURSE Respiratory Rate 18 05/02/2017 10:20 AM INFORMATICS NURSE Oxygen Saturation - - Inhaled Oxygen Concentration - - Weight 97.1 kg (214 lb) 05/02/2017 10:20 AM INFORMATICS NURSE Height 166.4 cm (5' 5.5) 05/02/2017 10:20 AM CS T Body Mass Index 35.07 05/02/2017 10:20 AM INFORMATICS NURSE Plan of Treatment Health Maintenance Due Date [...] series) 2014 INFLUENZA VACCINE (#1) 2023 Insurance [facility] BLUE ACCESS CHOICE Care Teams Solid Waste Truck Driver Relationship Specialty Start Date End Date Scott Oneill MD [address] [phone] PCP - General Internal Medicine 05/02/17
--- OUTSIDE RECORDS SUMMARY | 2024-08-24 11:32 | XMS_ITS | Encounter Summary ---
Author Organization [facility] Address [address] [place] [address] Phone Care Team Providers Care Second Mate Name Role Phone Scott Oneill MD Primary Care Provider Tavo Mishra MD Unavailable [phone] Gilmer Barnard MD Unavailable [phone] Kev Moser MD Unavailable [phone] Reason for Visit * Reason Comments Medication Refill Encounter Details Date Type Department Care Team (Late st Contact Info) Description 07/27/2023 Refill [facility] [address] [phone] Kev Moser MD [address] [place] [phone] Medication Refill Social History Tobacco Use [...] on file 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 Refill if appropriate. documented in this encounter Plan of Treatment Upcoming Encounters Date Type Department Care Team (Late st Contact Info) Description 09/01/2024 11:00 AM CDT Lab [facility] [address] [phone] Lab, [facility] 09/01/2024 11:15 AM CDT Office Visit [facility] [address] [phone] Kev Moser MD [address] [place] [phone] 09/01/2024 11:30 AM CDT Clinical Support [facility] [address] [phone] Nurse, [facility] documented as of this encounter Visit Diagnoses Not on filedocumented in this encounter Additional Health Concerns Assessment Noted Time PHQ-9 Depression Total Score: 0 11/25/19 11:34 AM CDT documented as of this encounter Care Teams Second Mate Relationship Specialty Start Date End Date Scott Oneill MD PCP - General Internal Medicine 04/29/17 Tavo Mishra MD [address] [place] [address] [phone] Internal Medicine 04/29/17 Gilmer Barnard MD [address] [place] [address] [phone] Consulting Physician Internal Medicine 08/28/17 4 Kev Moser MD [address] [place] [phone] Consulting Physician Oncology 02/09/20 documented as of this encounter
--- OUTSIDE RECORDS SUMMARY | 2024-08-24 11:32 | XMS_ITS | Encounter Summary ---
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
--- OUTSIDE RECORDS SUMMARY | 2024-08-24 11:32 | XMS_ITS | Continuity of Care Document ---
Author Organization [facility] Address [address] [place] [address] Phone Care Team Providers Care Patient Services Manager Name Role Phone Renny Garcia Unavailable Unavailable Advance Directives Directive Yes / No Effective Date File Name No Information Encounters Encounter Description Practice Location Reason(s) For Visit Diagnoses Date Provider Providers Copied on Encounter [facility], [address], [place], [place], [id number], [place] tel:[phone] [facility] [place] No Information Dec-0 6-200 [address]. [address] [facility] [facility] [address] [place] , [address], [place], [address], [place]. tel:[phone] Family History Family Member Type Diagnosis Age At Onset No Information Payers Payer name Insurance type Covered republican ID Authoriza tion(s) [place] [id number] Social History Type Description Quantity Date Captured [...]
--- OUTSIDE RECORDS SUMMARY | 2024-08-24 11:33 | XMS_ITS | Encounter Summary ---
Author Organization [facility] Address [address] [place] [address] Phone Care Team Providers Care Helper Marble Finisher Name Role Phone Scott Oneill MD Primary Care Provider [phone] Kev Prince DO Unavailable [phone] Tavo Mishra MD Unavailable [phone] Gilmer Barnard MD Unavailable [phone] Kev Moser MD Unavailable [phone] Encounter Details Date Type Department Care Team (Late st Contact Info) Description 12/31/2019 Telephone [facility] [address] [place] [address] Kev Moser MD [address] [place] [phone] Social History Tobacco Use Types Packs/Day [...] on file 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 Gender Identity Not on file [...] CDT Lab [facility] [address] [phone] Lab, [facility] 09/01/2024 11:15 AM CDT Office Visit [facility] [address] [phone] Kev Moser MD [address] [place] [phone] 09/01/2024 11:30 AM CDT Clinical Support [facility] [address] [phone] Nurse, [facility] documented as of this encounter Visit Diagnoses Not on filedocumented in this encounter Additional Health Concerns Assessment Noted Time PHQ-9 Depression Total Score: 0 10/04/19 20 2:45 PM CDT documented as of this encounter Care Teams Helper Marble Finisher Relationship Specialty Start Date End Date Scott Oneill MD PCP - General Internal Medicine 04/29/17 Kev Prince DO Gastroenterology 04/29/17 12/09/22 Tavo Mishra MD [address] [place] [phone] Internal Medicine 04/29/17 Gilmer Barnard MD [address] [place] [phone] Consulting Physician Internal Medicine 08/28/17 4 Kev Moser MD [address] [place] [phone] Consulting Physician Oncology 02/09/20 documented as of this encounter
--- OUTSIDE RECORDS SUMMARY | 2024-08-24 11:33 | XMS_ITS | Encounter Summary ---
Author Organization [facility] Address [address] [place] [address] Phone Care Team Providers Care Intelligence Chief Name Role Phone Scott Oneill MD Primary Care Provider [phone] Kev Prince DO Unavailable [phone] Tavo Mishra MD Unavailable [phone] Gilmer Barnard MD Unavailable [phone] Kev Moser MD Unavailable [phone] Encounter Details Date Type Department Care Team (Late st Contact Info) Description 08/11/2020 Telephone [facility] [address] [place] [address] Kev Moser MD [address] [place] [phone] Social History Tobacco Use Types Packs/Day [...] on file 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 I have a call out to get those labs faxed over but were there other labs that you needed that [facility] did not draw on Friday? documented in this encounter Plan of Treatment Upcoming Encounters Date Type Department Care Team (Late st Contact Info) Description 09/01/2024 11:00 AM CDT Lab [facility] [address] [place] [address] [phone] Lab, [facility] 09/01/2024 11:15 AM CDT Office Visit [facility] [address] [phone] Kev Moser MD [address] [place] [phone] 09/01/2024 11:30 AM CDT Clinical Support [facility] [address] [place] [address] [phone] Nurse, [facility] documented as of this encounter Visit Diagnoses Not on filedocumented in this encounter Additional Health Concerns Assessment Noted Time PHQ-9 Depression Total Score: 0 08/12/19 21 11:41 AM CDT documented as of this encounter Care Teams Intelligence Chief Relationship Specialty Start Date End Date Scott Oneill MD PCP - General Internal Medicine 04/29/17 Kev Prince DO Gastroenterology 04/29/17 12/09/22 Tavo Mishra MD [address] [facility] [address] [place] [address] [phone] Internal Medicine 04/29/17 Gilmer Barnard MD [address] [place] [address] [phone] Consulting Physician Internal Medicine 08/28/17 4 Kev Moser MD [address] [place] [phone] Consulting Physician Oncology 02/09/20 documented as of this encounter
--- OUTSIDE RECORDS SUMMARY | 2024-08-24 11:33 | XMS_ITS | Data Portability ---
Author Organization [place] [employer], Main Office Address [address] [place] [address] Care Team Providers Care Hanger Name Role Phone LEANN ONEILL Primary Care Provider [phone] Assessment No assessment recorded. Plan of Treatment Reminders Order Date Submit Date Provider Last Modified By Organization Details Last Modified Time Details Appointments Any 15 2024 01:45P M Leann Oneill MD Not available Not available Not available Lab testoster one, free + total, serum 2024 025 [email or web address] 2 [facility], [address] [place] [address], [id number], 05/06/2024 08:40:30 PSA, serum or plasma 2023 024 [email or web address] [facility], [address] [place] [address], [address], 12/17/2023 07:51:57 lipid panel, serum 2023 024 [email or web address] [facility], [address] [place] [address], [address], 12/17/2023 07:51:56 Referral None recorded. Procedures None recorded. Surgeries None recorded. Imaging None recorded. Medication Orders tadalafil 20 mg tablet 2024 025 [facility], [address] [facility], [place], [address], 04/08/2024 09:47:11 Patient TargetsNo targets recorded. Patient Instructions Encounter Date Encounter Id Patient Instructions Last Modified By Organization Details Last Modified Time 08/05/2023 [id number] [email or web address] Not available 08/05/2023 12:11:17 12/10/2023 [id number] dementia rating scale-2* Not available 12/10/2023 17:40:46 alcohol misuse* Not available 12/10/2023 17:40:46 depression screening* Not available 12/10/2023 17:40:47 Timed Up and Go test (TUG)* Not available 12/10/2023 17:40:46 multi-dimensiona l health assessment questionnaire* Not available 12/10/2023 17:40:47 advance care planning: care instructions [email or web address] Not available 12/10/2023 17:40:46 advance directiv es: care instructions [email or web address] Not available 12/10/2023 17:40:47 [place] Advance Directives [email or web address] Not available 12/10/2023 17:40:47 Personalized Health Plan [...] Non Smoker Alcohol Misuse Screening: Negative Weight: Overweight try to lose 15% of your body weight Physical activity: Need more exercise/physical activity minimum of 10-20 minutes of activity that causes mild breathlessness/day Nutrition: Average Refer to attached handout Heart-Healthy Diet: After Your Visit Fall Risk (screened today): Low Refer to attached handout Preventing Falls: After your Visit Vaccines Pneumococcal: No further needed Influenza: Your next one in the fall of this year Chronic Disease Risks Stroke: Intermediate Risk Active diagnosis, Continue current treatment plan Heart Attack: Intermediate Risk Active diagnosis, Continue current treatment plan Clogging of the Arteries: Intermediate Risk Active diagnosis, Continue current treatment plan Diabetes: Low Risk Active diagnosis, Continue current treatment plan Secondary Prevention/Interven tion (detects treatable diseases before they may cause symptoms, disability, or ) Prostate Cancer Screening: No PSA screening necessary Colon Cancer Screening: Colonoscopy Date Screening Last Performed: Eye Disease Screening: No Eye exam necessary Dementia Risk: Low I have no recommendations My recommendation would be to have further medical evaluation, make an appointment with primary care physician My recommendation would be to have an appointment with the Neurologist I have no recommendations. Depression Screening: Negative Recommend additional evaluation and/or treatment as noted above Recommend follow appointment to further evaluate Recommend Behavioral Health referral Active diagnosis, Continue current treatment plan I have no recommendations. [email or web address] Not available 12/10/2023 15:25:38 04/08/2024 [id number] Not available 04/08/2024 09:48:43 08/09/2024 [id number] [email or web address] Not available 08/09/2024 10:45:50 Reason for Referral None Reported. Results Created Date Observation Date Name Description Value Unit Range Abnormal Flag Note LastModifiedBy Organization Detail LastModifiedTime 04/09/1910/18/2021 colon oscop y scree radha (PROC ) No observ ation record ed. BARCODE Not Available 2024 11:31:35 Result Notes None recorded. Problems Name Problem SNOMED Code Status Onset Date Resolution Date Notes Provider Name and Address Organization Details Recorded Time Polyp of colon 70862608 Active 2022 Leann Oneill MD [address], [address], [place], [address] , [employer] [employer] 3 12:56:21 Acute sinusiti s 51165837 Active 2022 Libra Blas LPN null, [facility] [employer] 3 17:08:12 Melena 6632844 Active 2022 Leann Oneill MD [address], [address], [place], [address] , [facility] [employer] 3 14:26:40 Blood in urine 65748387 Active 2022 Leann Oneill MD [address], [address], [place], [address] , [facility] [employer] 3 14:27:23 Intersti tial lung disease 951845277 Active 2022 Leann Oneill MD [address], [address], [place], [address] , [place] [facility] [employer] 3 14:32:34 Mass of subcutan eous tissue of toe of left foot 05203657045 327875 Active 2023 He Mccormick DPM [address], [facility] [address], [place], [address] , [facility], [facility] 4 11:19:16 History of malignan t neoplasm of skin 595026220 Active 2023 He Mccormick DPM [address], [facility] [address], [place], [address] , [facility] 4 11:19:52 Vasculit is 04236596 Active 2023 Leann Oneill MD [address], [place] [address], [place], [address] , [facility], [place] [employer] [facility] 4 12:34:40 Sinusiti s 81382242 Active 2023 Rosa Walter MA null, [facility] 4 11:15:03 Deep venous thrombos is 649601032 Active 2020 Sarah groves RMA null, [facility] 3 12:27:50 Abnormal testoste lizzy 329054282 Active could not afford medicine Sarah groves RMA null, [facility] 3 12:27:32 Testoste lizzy level below referenc e range 554285437 Completed 202112/06/2022 Sarah groves RMA null, [facility] 3 12:28:40 External hordeolu m 2113868 Active Not Available [facility] 3 04:52:03 Hearing loss 49260274 Active 2021 Sarah groves RMA null, [facility] 3 12:27:57 Acute sinusiti s 03284387 Completed 202112/06/2022 Libra Blas LPN null, [place] [facility] 3 17:08:12 Backache 893785472 Completed 202012/06/2022 Sarah groves RMA null, [place] [facility] 3 12:27:28 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 3 12:27:45 Anemia 926712985 Active 2019 Not Available [facility] 3 04:52:03 Eruption 855827004 Completed Not Available [facility] 3 04:52:04 Low back pain 030505442 Completed Not Available [facility] 3 04:52:04 Chest pain 61323491 Completed 202012/06/2022 Sarah groves RMA null, [facility] 3 12:27:25 Otitis externa 6041778 Completed Not Available [facility] 3 04:52:04 Malignan t neoplasm of skin 007130387 Active on lip, no recurren ce, dr whelan Not Available [facility] 3 04:52:04 Neuropat hy 278147069 Active Sarah groves RMA null, [place] - [facility] 3 12:28:38 Osteoart hritis 586745127 Completed 12/06/2022 Sarah groves RMA null, [place] [facility] 3 12:28:43 Obesity 513635298 Active Not Available [facility] 3 04:52:04 Cough 33399920 Completed 202112/06/2022 Sarah groves RMA null, [place] [facility] 3 12:27:23 Ulcer of duodenum 62681677 Active 2020 Not Available [facility] 3 04:52:05 Acute upper respirat ory infectio n 40606486 Completed 202112/06/2022 Sarah gorves RMA null, [place] [facility] 3 12:27:19 Hyperlip idemia 95483220 Active Not Available [facility] 3 04:52:05 Essentia l hyperten mara 20214207 Active Not Available [facility] 3 04:52:05 Otitis media 22261267 Completed Not Available [facility] 3 04:52:05 Sleep apnea 29828676 Active cpap Not Available [facility] 3 04:52:05 Ex-smoke r 6545320 Active quit 2010 Sarah groves RMA null, [place] [facility] 3 12:27:44 Erectile dysfunct ion 481163687 Active 2021 Sarah groves RMA null, [place] [facility] 3 12:27:37 Kidney disease 99843662 Active 2020 Sarah groves RMA null, [place] [facility] 3 12:27:52 Notes:Medical History: Bilat eral hearing [...] 2020 Colonoscopy with polypectomy 2021 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 Procedures Surgical History Date Name Laterality Status Provider Name and Address Organization Details Recorded Time 4 Medicare Wellness CPT Code, subsequent completed Debbie Sepulveda RN [facility] 12/10/2023 12:53:31 4 Advanced Care Planning completed Debbie Sepulveda RN [facility] 12/10/2023 14:58:54 3 Medicare Wellness CPT Code, subsequent completed Umm Regan RN [facility] 12/06/2022 12:58:58 other completed Not Available [facility] 03/2022 04:43:13 Imaging Results None recorded. Procedure Notes None recorded. Medical Equipment None [...] ORAL ROUTE ONCE DAILY FOR 4 DAYS 07/26 completed per 06/30/24 patient case / ds Not [...] MOUTH TWICE DAILY NEEDED FOR 30 DAYS 2024 active Not Available Not Available Not Avai lable triamcino lone acetonide 0.1 % topical cream [...] CellCept 500 mg tablet Take 1 tablet every day by oral route. active Pulmonar y Not Available Not Available Not Available gabapenti n 300 mg capsule TAKE [...] e 50 mcg/actua tion nasal spray,michelle pension Rogers 2 sprays every day by intranas al [...] Available Not Available Vitals Date Recorded Body weight Body temperature Oxygen saturation Oxygen saturation in Arterial blood by Pulse oximetry Heart rate Systolic And Diastolic Provider Name and Address Organization Details Last Updated DateTime 5 394767. 61 g 97.4 [degF] 94 % 94 % 88 /min 138/62 mm[Hg] Marga pearson [facility] 5 09:18:42 Date Recorded Body height Body mass index (BMI) Body weight Heart rate Respiratory rate Oxygen saturation Oxygen saturation in Arterial blood by Pulse oximetry Provider Name and Address Organization Details Last Updated DateTime 4 165.1 cm 37.8 kg/m2 090849. 47 g 87 /min 14 /min 98 % 98 % Wen Frank [facility] 4 09:57:22 Date Recorded Body height Body mass index (BMI) Body weight Body temperature Heart rate Oxygen saturation Oxygen saturation in Arterial blood by Pulse oximetry Systolic And Diastolic Provider Name and Address Organization Details Last Updated DateTime 4 165.1 cm 38.9 kg/m2 974296. 61 g 97.9 [degF] 86 /min 98 % 98 % 140/82 mm[Hg] Janey Ulrich CMA [facility] [employer] [facility] 4 12:11:24 Date Recorded Body height Body mass index (BMI) Body weight Body temperature Heart rate Oxygen saturation Oxygen saturation in Arterial blood by Pulse oximetry Systolic And Diastolic Provider Name and Address Organization Details Last Updated DateTime 5 165.1 cm 39.3 kg/m2 038325. 8 g 97.3 [degF] 69 /min 97 % 97 % 128/67 mm[Hg] Marga pearson [facility] [employer] 5 10:55:46 Date Recorded Body height Body mass index (BMI) Body weight Body temperature Heart rate Oxygen saturation Oxygen saturation in Arterial blood by Pulse oximetry Systolic And Diastolic Provider Name and Address Organization Details Last Updated DateTime 4 165.1 cm 39.1 kg/m2 564095. 21 g 97.7 [degF] 73 /min 96 % 96 % 140/60 mm[Hg] Sarah Eric kelly, A [facility] [employer] 4 11:56:23 Social History Question Answer Notes LastModified by Organization Details LastModified Time Tobacco Smoking Status Former Smoker Quit in 2003 Debbie Sepulveda RN [facility], [place] [employer] [facility] [employer] 12/10/2023 12:57:32 Do You Have An Advance Directive? No Paperwork Given 12/10/2023 [email or web address] Information not available 12/10/2023 Are You Blind Or Do You Have Difficulty Seeing? No MIGRATION.0301 [id number] Information not available 05/29/2022 Is Blood Transfusion Acceptable In An Emergency? Yes [email or web address] Information not available 12/10/2023 What Is Your Level Of Caffeine Consumption? Occasional MIGRATION.0301 [id number] Information not available 05/29/2022 How Much Tobacco Do You Chew? None MIGRATION.0301 510459 Information not available 05/29/2022 In The 14 Days Before Symptom Onset, Have You Had Close Contact With A Laboratory-conf irmed COVID-19 While That Case Was Ill? No Not Applicable [email or web address] Information not available 12/10/2023 In The 14 Days Before Symptom Onset, Have You Had Close Contact With A Person Who Is Under Investigation For COVID-19 While That Person Was Ill? No Not Applicable [email or web address] Information not available 12/10/2023 Are You Deaf Or Do You Have Serious Difficulty Hearing? Yes Bilateral Hearing Aids [email or web address] Information not available 12/10/2023 What Type Of Diet Are You Following? REGULAR MIGRATION.0301 [id number] Information not available 05/29/2022 Which Illicit Or Recreational Drugs Have You Used? None MIGRATION.0301 099740 Information not available 05/29/2022 What Is The Highest Grade Or Level Of School You Have Completed Or The Highest Degree You Have Received? [id number] [email or web address] Information not available 12/10/2023 Do You Have An Electrostatic Air Filter? Yes MIGRATION.030 207062 Information not available 05/29/2022 How Many Days Of Moderate To Strenuous Exercise, Like A Brisk Walk, Did You Do In The Last 7 Days? 0 [email or web address] Information not available 12/10/2023 Have There Been Any Changes To Your Family Or Social Situation? No MIGRATION.030 399223 Information not available 05/29/2022 What Is The Fluoride Status Of Your Home? Fluoridated MIGRATION.030 017037 Information not available 05/29/2022 When Did You Quit Smoking? 16+yearssincelastc igarette [email or web address] Information not available 12/10/2023 Are There Any Guns Present In Your Home? Yes MIGRATION.030 175110 Information not available 05/29/2022 Do You Have A Humidifier? No On The Cpap Machine MIGRATION.030 429600 Information not available 05/29/2022 Do You Use Insect Repellent Routinely? No [email or web address] Information not available 12/10/2023 Where Do You Live? SingleLevelHouse MIGRATION.030 735712 Information not available 05/29/2022 Presence Of Domestic Violence No [email or web address] Information not available 12/06/2022 Are You Able To Care For Yourself? Yes [email or web address] Information not available 12/06/2022 Are You Blind Or Do Yo Have Difficulty Seeing? No Information not available 12/06/2022 Are You Deaf Or Do You Have Serious Difficulty Hearing? No [email or web address] Information not available 12/06/2022 General Stress Level? Moderate [email or web address] Information not available 12/10/2023 Live Alone Of With Others? With Others [email or web address] Information not available 12/06/2022 Do You Have A Medical Power Of Odd Ticket Clerk? No [email or web address] Information not available 12/10/2023 Do You Have Moisture Problems In Your Home? No MIGRATION.030 606484 Information not available 05/29/2022 What Was The Date Of Your Most Recent Tobacco Screening? 12/10/2023 [email or web address] Information not available 12/10/2023 How Many Children Do You Have? 4 [email or web address] Information not available 12/10/2023 What Is Your Current Pack Years? 30ormorepackyears [email or web address] Information not available 12/10/2023 Do You Have Any Pets? Yes MIGRATION.0301 407776 Information not available 05/29/2022 Do You Use Protection During Sex? No [email or web address] Information not available 12/10/2023 What Is Your Relationship Status? [email or web address] Information not available 12/10/2023 Do You Use Your Seat Belt Or Car Seat Routinely? Yes MIGRATION.0301 685142 Information not available 05/29/2022 Are You Sexually Active? Yes [email or web address] Information not available 12/10/2023 Do You Have Smoke And Carbon Monoxide Detectors In Your Home? Yes MIGRATION.0301 260950 Information not available 05/29/2022 At What Age Did You Start Smoking Tobacco? 18 MIGRATION.0301 484019 Information not available 05/29/2022 Are You Passively Exposed To Smoke? No MIGRATION.0301 333868 Information not available 05/29/2022 Are There Any Smokers In Your House? No MIGRATION.0301 364189 Information not available 05/29/2022 How Much Tobacco Do You Smoke? 1 PPD MIGRATION.0301 375527 Information not available 05/29/2022 What Types Of Sporting Activities Do You Participate In? None [email or web address] Information not available 12/10/2023 Do You Use Sunscreen Routinely? No MIGRATION.0301 427466 Information not available 05/29/2022 Has Tobacco Cessation Counseling Been Provided? No [email or web address] Information not available 12/10/2023 How Many Years Have You Smoked Tobacco? 30 [email or web address] Information not available 12/10/2023 Have You Recently Traveled Abroad? No MIGRATION.0301 210054 Information not available 05/29/2022 Do You Have Difficulty Walking Or Climbing Stairs? No MIGRATION.0301 303059 Information not available 05/29/2022 Do You Have Any Dietary Restrictions? No MIGRATION.0301 324024 Information not available 05/29/2022 Sex: Male Functional Status Question Answer Note LastModified by Organizat ion Details LastModified Time Do you use any illicit or recreational drugs? No MIGRATION.345587 9734 Information not available 05/29/2022 Do you or have you ever used any other forms of tobacco or nicotine? No MIGRATION.877664 4839 Information not available 05/29/2022 What is your level of alcohol consumption? None [email or web address] Information not available 12/10/2023 Are you currently employed? No [email or web address] Information not available 12/10/2023 Do you have transportation difficulties? No MIGRATION.582766 8037 Information not available 05/29/2022 Are you able to walk? YESWOREST MIGRATION.709389 3647 Information not available 05/29/2022 Do you have difficulty doing errands alone? No MIGRATION.018402 8393 Information not available 05/29/2022 Are you able to care for yourself? 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 No MIGRATION.441640 8353 Information not available 05/29/2022 What is your exercise level? None MIGRATION.211089 8445 Information not available 05/29/2022 Mental Status Question Answer Note LastModified by Organizat ion Details LastModified Time Do you feel stressed (tense, restless, nervous, or anxious, or unable to sleep at night)? IL05140-9 [email or web address] Information not available 12/10/2023 Do you have difficulty concentrating, remembering or making decisions? No MIGRATION.31995541 26 Information not available 05/29/2022 Family History Relationship Description Onset Age of this Age Resolved Age Notes LastModified by Organization Details LastModified Time Father Essential hypertension MIGRATION.688 [id number] Not available 05/29/2022 04:43:16 Sister Diabetes mellitus MIGRATION.698 9518858 Not available 05/29/2022 04:43:16 Brother Small cell carcinoma of lung 59 MIGRATION.504 9809562 Not available 05/29/2022 04:43:16 Medical History Condition Response HIGH CHOLESTEROL / HYPERLIPIDEMIA Y HYPERTENSION Y Immunizations Vaccine Type Date Status Note Provider Nam e and Address Organization Details Recorded Time COVID-19, mRNA, LNP-S, PF, 100 mcg/0.5mL dose or 50 mcg/0.25mL dose completed Not Available [employer] 05/29/2022 05:05:37 COVID-19, mRNA, LNP-S, PF, 100 mcg/0.5mL dose or 50 mcg/0.25mL dose 1 completed Not Available [facility] 05/29/2022 05:05:38 Influenza, split virus, quadrivalent, preservative 1 completed Not Available [facility] 05/29/2022 05:05:38 Influenza, split virus, quadrivalent, PF 9 completed Not Available [facility] 05/29/2022 05:05:38 Influenza, high-dose, trivalent, PF 8 completed Not Available [facility] 05/29/2022 05:05:38 Influenza, split virus, trivalent, PF 4 completed Not Available [facility] 05/29/2022 05:05:38 Past Encounters Encounter ID Performer Location Encounter Start Date Encounter Closed Date Diagnosis/Indication Diagnosis SNOMED-CT Code Diagnosis ICD10 Code Diagnosis Note [id number] Leann Oneill [place] [facility] [place] [facility] [address] [address] 07/25/2020 00:00:00 07/25/2020 10:30:24 [id number] Leann Oneill MD [facility] [place] [place] [facility] [address] [address] 11/21/2020 00:00:00 11/21/2020 11:24:02 [id number] Mert Whitt MD [facility] [address] [address] 12/07/2020 00:00:00 12/07/2020 08:29:49 [id number] Mert Whitt MD [facility] [address] 02/01/2021 00:00:00 02/01/2021 09:16:01 [id number] Leann Oneill MD [facility] [place] [facility] [address] [address] 03/07/2021 00:00:00 03/07/2021 11:59:20 [id number] Leann Oneill MD [facility] [place] [place] [address] [place] [address] 07/06/2021 00:00:00 07/06/2021 13:14:02 [id number] Mert Whitt MD [facility] [place] [address] [address] 02/05/2022 00:00:00 02/05/2022 11:31:08 [id number] Leann Oneill MD [facility] [place] [address] [place] [address] 12/06/2022 11:40:07 12/06/2022 13:05:12 Essential hypertension 55618415 I10 watch Hyperlipidemia 11984140 E78.5 labs Obesity 991098606 E66.9 advised to lose more Osteoarthr itis of knee 603849303 M17.9 otc Anemia 156578967 D64.9 stable Ex-smoker 3403884 Z87.89 1 Deep venou s thrombosis 313241007 I82.409 on MEDS FOR LIFE Abnormal testosterone 13 0313028 R94.7 Kidney disease 55376027 N08 seeing nephrology Sleep apnea 55619188 G47 .33 cpap Neuropathy 616776442 G62 .9 start pregabalin Adult heal th examination 551201898 Z00.00 repeat colonoscop y, scheduled soon due to polyppsa- 02/17FLU- OV ID Vacc- Has had all 3 vacc Screening for malignant neoplasm of prostate 889834103 Z12.5 Polyp of colon 30469903 K63.5 gets colonoscop y every year Screening for disorder 484788296 Z13.9 [id number] Leann Oneill MD [facility] [place] [address] [place] [address] 02/17/2023 14:01:56 02/17/2023 14:36:53 Melena 3914890 K92.1 improved Blood in urine 43804862 R31.9 to get cysto Kidney disease 43202010 N08 seen nephrology , cr now baseline Interstiti al lung disease 680771024 J84.9 he has appt to f/u with pulm, no symptoms [id number] Leann Oneill MD [facility] [address] [place] [address] 04/08/2023 11:53:16 04/08/2023 12:38:50 Essential hypertension 88294300 I10 under control Hyperlipidemia 76192847 E78.5 will get labs reports Obesity 594947524 E66.9 advised to lose Osteoarthr itis of knee 508778953 M17.9 otc Anemia 072424480 D64.9 stable Ex-smoker 9045443 Z87.89 1 Deep venou s thrombosis 619419084 I82.409 on [employer] FOR LIFE Abnormal testosterone 13 6780007 R94.7 get labs reports Kidney disease 07747887 N08 seeing nephrology Sleep apnea 49339474 G47 .33 cpap Neuropathy 482667372 G62 .9 pregabalin helps Adult heal th examination 435335260 Z00.00 repeat colonoscop y, scheduled soon due to polyppsa- - 1COV ID Vacc- Has had all 3 vacc Polyp of colon [id number] K63.5 gets colonoscop y every year [id number] He Mccormick DPM [facility] [place] [address] [facility] [address] [place] [address] 05/27/2023 09:54:02 05/27/2023 16:57:06 Mass of subcutaneous tissue of toe of left foot [id number] 1162691 R22.42 left great toefollow up with pcp or oncologyre fused surgery where I have privileges recommend immediate follow up History of malignant neoplasm of skin 330203869 Z85.828 squamous cell on lip [id number] Leann Oneill MD [facility] [address] [place] [address] 08/05/2023 12:06:26 08/05/2023 12:39:57 Essential hypertension 06488292 I10 under control Hyperlipidemia 10595869 E78.5 under control Obesity 028127169 E66.9 advised to lose Osteoarthr itis of knee 826396518 M17.9 otc Anemia 935111445 D64.9 stable Ex-smoker 3788285 Z87.89 1 Deep venou s thrombosis 649237292 I82.409 meds for life Abnormal testosterone 13 2457052 R94.7 get labs reports Kidney disease 38299495 N08 seeing nephrology Sleep apnea 26767238 G47 .33 cpap Neuropathy 679383871 G62 .9 pregabalin helps Adult heal th examination 828208663 Z00.00 repeat colonoscop y, scheduled soon due to polyppsa- OV ID Vacc- Has had all 3 vacc Polyp of colon 96524181 K63.5 gets colonoscop y Interstiti al lung disease 647826008 J84.9 autoimmune , on meds, seeing pulm at [facility] 45911482 I77. 6 on cytoxan [id number] Leann Oneill MD [facility] Internal [address] [facility] [place] [address] 12/10/2023 11:50:33 12/10/2023 13:11:37 Essential hypertension 13432783 I10 watch Hyperlipidemia 42628885 E78.5 under control Obesity 429026744 E66.9 advised to lose Osteoarthr itis of knee 520447999 M17.9 otc Anemia 313076364 D64.9 stable Ex-smoker 8809743 Z87.89 1 Deep venou s thrombosis 191217348 I82.409 meds for life, Eliquis Abnormal testosterone 13 6392194 R94.7 Kidney disease 72892837 N08 seeing nephrology Sleep apnea 69198448 G47 .33 cpap Neuropathy 545574506 G62 .9 pregabalin helps some Adult heal th examination 658884953 Z00.00 repeat colonoscop y,PSA- - OV ID Vacc- Has had all 3 vacc Polyp of colon 99433082 K63.5 needs colonoscop y , not sure when Interstiti al lung disease 652125922 J84.9 autoimmune , on meds, seeing pulm at [facility] 40935576 I77. 6 on cytoxan Screening for malignant neoplasm of prostate 981761967 Z12.5 Screening for disorder 922474071 Z13.9 [id number] Leann Oneill MD [facility] [address] [place] [address] 04/08/2024 09:06:19 04/08/2024 09:55:47 Essential hypertension 62680570 I10 under control Hyperlipidemia 34706607 E78.5 under control Obesity 407504401 E66.9 advised to lose Osteoarthr itis of knee 795382200 M17.9 otc Anemia 779110632 D64.9 stable Ex-smoker 1556424 Z87.89 1 Deep venou s thrombosis 144782521 I82.409 meds for life, Eliquis Abnormal testosterone 13 9241511 R94.7 Kidney disease 99427979 N08 seeing nephrology Sleep apnea 34737862 G47 .33 cpap Neuropathy 636624738 G62 .9 pregabalin helps Adult heal th examination 838859779 Z00.00 colonoscop y 2022 per [facility]- 4COV ID Vacc- Has had all 3 vacc Polyp of colon 98095074 K63.5 needs colonoscop y , Interstiti al lung disease 481356330 J84.9 autoimmune , on meds, seeing pulm at [facility] 04685510 I77. 6 on cytoxan Erectile dysfunction 860 078336 F52.21 [id number] Leann Oneill MD [facility] Internal [address] [place] [address] 08/09/2024 10:42:50 08/09/2024 11:27:10 Essential hypertension 99253291 I10 under control Hyperlipidemia 76899920 E78.5 under control, labs 12/22 Obesity 760145549 E66.9 advised to lose Osteoarthr itis of knee 612071967 M17.9 otc Anemia 302592263 D64.9 stable Ex-smoker 2076122 Z87.89 1 Deep venou s thrombosis 316160330 I82.409 meds for life, Eliquis Abnormal testosterone 13 3336548 R94.7 Kidney disease 56697978 N08 seeing nephrology Sleep apnea 70880193 G47 .33 cpap Neuropathy 923362883 G62 .9 getting worse, will get benefit form electric wheel chairsee the comments in [place] Adult heal th examination 839714984 Z00.00 colonoscop y 2022 per [facility]- 12/10/2023 FLU- OV ID Vacc- Has had all 3 vacc Polyp of colon 23768380 K63.5 needs colonoscop y , Interstiti al lung disease 727499151 J84.9 autoimmune , on meds, seeing pulm at [facility] 21266189 I77. 6 on cytoxan Erectile dysfunction 860 090959 F52.21 on meds Health Concerns Section Related Observation LastModified by Organization Detai ls LastModified Time None Recorded Concern Status LastModified by Organization Details LastModified Time None Recorded Advance Directives Directive N: paperwork given 12/10/2023 Payers Encounter Date Sequence Insurance Name Policy Number Policy Virk Covered Member ID Virk Member ID Guarantor Name 05/27/2023 1 [place] Britton R Morales Sr [id number] Britton R [place] 05/27/2023 2 [employer] [place] (MEDICARE SUPPLEMENT) Britton R Morales [id number] Britton R Morales 08/05/2023 1 [place] Britton R Morales Sr [id number] Britton R [place] 08/05/2023 2 [employer] [place] (MEDICARE SUPPLEMENT) Britton R [place] [id number] Britton R Morales 12/10/2023 1 [place] Britton R Morales Sr [id number] Britton R [place] 12/10/2023 2 [employer] [place] (MEDICARE SUPPLEMENT) Britton R Morales [id number] Britton R Morales 04/08/2024 1 [place] Britton R Morales Sr [id number] Britton R [place] 04/08/2024 2 [employer] [place] (MEDICARE SUPPLEMENT) Britton R [place] [id number] Britton R Morales 08/09/2024 1 [place] Britton R Morales Sr [id number] Britton R [place] 08/09/2024 2 [employer] [place] (MEDICARE SUPPLEMENT) Britton R [place] [id number] Britton R [place] Notes Date Note Type Note Provider Name and Address Organization Details Recorded Time 05/27/2023 text/html Patient is a 68-year-old male [...] any other complaints. He Mccormick, KARTIK [address] [facility], [facility] [address], [place], [address], [facility] [employer] [employer] 05/27/2023 13:49:37 08/05/2023 text/html Here today for [...] started on meds Leann Oneill MD [address] [facility], [address], [place], [address], [place] [facility] [employer] 08/05/2023 12:38:15 12/10/2023 text/html Here today for [...] bleeding Ulcers / Anemia- sees Dr. Kev Robles MD, no more symptoms Ex-smoker- used smoke 2 ppd, for yrs Back pain, thoracic area, xrays showed mild arthritis Leann Oneill MD [address], [address], [place], [address], [employer] 12/10/2023 17:41:09 04/08/2024 text/html Here today for [...] bleeding Ulcers / Anemia- sees Dr. Kev Robles MD, no more symptoms Ex-smoker- used smoke 2 ppd, for yrs Back pain, thoracic area, xrays showed mild arthritis Leann Oneill MD [address], [address], [place], [address], [employer] 04/08/2024 09:49:08/09/2024 text/html Here today for routine 4 month f/u, Last Friday he was diagnosed with e-coli UTI and on antibiotic three times a days and has finished the medication. * would like a electric chair..Help for seniors will help pay for it for him Its getting harder for him to walk much due to neuropathy.When he goes to [facility] to see his specialist, its very hard for him to walk that long distance. Due neuropathy and heart disease and lung disease/sob, he can not operate manual chair, gets out of breath with activities.pt is not fasting (medicare) HEARING LOSS- USING HEARING AIDS CAD- triple by-pass surgery, 06/18, on asa, no symptoms HTN- under controlMeds- Labetalol 200 mg bid, Irbesartan 150mg daily, Hyperlipidemia- under good control, watching diet , labs done in 12/21,Med- Atorvastatin 20 mg qd Obesity- not watching diet Edema- on Furosemide, comes and goes, wearing compression hoseMeds- Furosemide 40 mg qd Arthritis- mostly spine Sleep apnea - compliant to cpapNeuropathy- - not on gabapentin (caused swelling) mostly numbness on the feet , tingling mostly at night , pain is getting worseDOES NOT WANT PAIN MANAGEMENTMeds- Tramadol 50mg, Pregabalin 50mg TID Testosterone levels [...] Anemia- iron def, bone marrow biopsy neg, H/o pancytopenia- seeing oncology, on meds for bone marrow stimulation H/O ED- Tadalafil helpsMeds- tadalafil 20 mg qd prn DVT- on Eliquis since 11/15 for lifeMeds- Eliquis 5 mg bid HX- bleeding Ulcers / Anemia- sees Dr. Kev Moser. , no more symptoms Ex-smoker- used smoke 2 ppd, for yrs Back pain, thoracic area, x-rays showed mild arthritis Leann Oneill MD [address] [facility], [address], [place], [address], [place] [facility] 08/09/2024 11:21:40
--- OUTSIDE RECORDS SUMMARY | 2024-08-24 11:33 | XMS_ITS | Referral Summary ---
Author Organization [facility] [address] Address [address] [place] [address] Care Team Providers Care Senior Software Architect Name Role Phone Scott Oneill MD Primary Care Provider [phone] Encounters Date Type Department Care Team Description 08/10/2024 Telephone [facility] Advanced Medicine [address]th [place] [address] [place] [address] Margret Cobb CMA 08/06/2024 Documentation [facility] [address] [facility] 8th [place] [address] [place] [address] Polly Paulino RN 08/05/2024 3:00 PM CDT Office Visit [facility] 8th [place] [address] [place] [address] Marce Bernal MD Interstitial lung disease (HCC) (Primary Dx); Stage 3b chronic kidney disease (HCC); BMI 35.0-35.9,adult; Microscopic polyangiitis (HCC) 08/05/2024 1:22 PM CDT - 08/05/2024 11:59 PM CDT Hospital Encounter [facility] [address] [place] [address] Microscopic polyangiitis (HCC) Discharge Disposition: Discharge to home or self care 06/02/2024 Orders Only [facility] Scanning, Provider from Last 3 Months Allergies No known [...] by mouth daily 06/17/19 25 Active neomycin-polymy radnell-HC (CORTISPORIN) otic solution INSTILL 4 DROPS INTO [...] on file 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 Gender Identity Male 12/24/2023 11:25 AM CDT Sexual Orientation Straight 12/24/2023 11 :25 AM CDT 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 Start Date Job End Date 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, 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, 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 Not on file Not on file Not [...] 08/05/2024 2:30 PM CDT Plan of Treatment Not on file Procedures Procedure Name Priority Date/Time Associated Diagnosis Comments PULMONARY FUNCTION TEST (PFT) Routine 08/05/2024 2:05 PM CDT Microscopic polyangiitis (HCC) SCAN - LABS 06/02/2024 from Last 3 Months Results * Pulmonary Function Test - (08/05/2024 2:05 PM CDT) FVC PRE 2.56 L [facility] FVC %PRE PRED 77 % [facility] FEV1 PRE 2.25 L [facility] FEV1 %PRE PRED 88 % [facility] FEV1/FVC PRE 87.7 % [facility] Anatomical Region Laterality Modality PFT 08/05/2024 1:34 PM CDT Narrative 08/05/2024 6:28 PM CDT Table formatting from the original result was not included. [facility] Division of Pulmonary & Critical Care Medicine [address] [place] [address]; [facility]; [place] [address]; [phone] Pulmonary Function Laboratory Pulmonary Stress Test Simple/Oxygen [...] Work [distance (m) x body wt (kg)]: 41729 kg.m (normal >60,000kg.m) Oxygen required to maintain SpO2 greater than 90% during six minutes of walkin L/M Comments: [id number]-[id number] STOPPED DUE HIP AND LEG PAIN. Interpretation: [...] written final report. [facility] at[facility] Procedure:->Spirometry Procedure:->Oxygen Assessment [...] and %HbO2 is age dependent. However, the [facility] Pulmonary Function Laboratory defines hypoxemia as a PaO2 <56 mm Hg or a %HbO2 <89%. Starting on March of 2024 the [facility] Pulmonary Function Laboratory utilizes race neutral GLI Global normative equations. Marce Bernal MD PFT ORDERABLES Final Result * SCAN - LABS (06/02/2024) Provider Scanning Edited Result - Final from Last 3 Months Insurance MEDICARE MEDICARE [place] MEDICARE [place] [employer] MEDICARE Advance Directives For more information, please contact: [phone] * Full Code (Latest Code Status on File) Date Activated Date Inactivated Comments 07/17/2020 8:05 PM 07/19/2020 7:41 PM * Full Code Date Activated Date Inactivated Comments 06/08/2020 6:02 PM 06/15/2020 7:20 PM Healthcare Agents on File Name Relationship Healthcare Agent Relationship Communication Shyann Nielsen Spouse First Alternat e Health Care Agent Care Teams Senior Software Architect Relationship Specialty Start Date End Date Scott Oneill MD PCP - General Internal Medicine 04/27/20
--- OUTSIDE RECORDS SUMMARY | 2024-08-24 11:33 | XMS_ITS | Encounter Summary ---
Author Organization [facility] Address [address] [place] [address] Phone Care Team Providers Care Uniform Room Attendant Name Role Phone Scott Oneill MD Primary Care Provider Tavo Mishra MD Unavailable [phone] Kev Moser MD Unavailable [phone] Reason for Visit * Reason Onset Date Comments canopy call/supervisor picking crew Eliquis samples 05/26/2024 Encounter Details Date Type Department Care Team (Late st Contact Info) Description 05/26/2024 Telephone [facility] [address] [place] [address] Kev Moser MD [address] [place] [phone] canopy call/supervisor picking crew Eliquis samples Social History Tobacco Use Types [...] on file Legal Sex Male 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 STANT PROFESSOR OF CRIMINAL JUSTICE * Telephone Encounter - Suzie Black RN - 05/26/2024 1:57 PM CST pt called to speak to Fritz regarding Eliquis samples [phone] Spoke with patient he will supervisor picking crew Eliquis samples today by 3pm. STANT PROFESSOR OF CRIMINAL JUSTICE documented in this encounter Plan of Treatment Upcoming Encounters Date Type Department Care Team (Late st Contact Info) Description 09/01/2024 11:00 AM CDT Lab [facility] [address] [phone] Lab, [facility] 09/01/2024 11:15 AM CDT Office Visit [facility] [address] [phone] Kev Moser MD [address] [place] [phone] 09/01/2024 11:30 AM CDT Clinical Support [facility] [address] [phone] Nurse, [facility] documented as of this encounter Visit Diagnoses Not on filedocumented in this encounter Additional Health Concerns Assessment Noted Time PHQ-9 Depression Total Score: 0 11/25/19 21 11:34 AM CDT documented as of this encounter Care Teams Uniform Room Attendant Relationship Specialty Start Date End Date Scott Oneill MD PCP - General Internal Medicine 04/29/17 Tavo Mishra MD [address] [address] Internal Medicine 04/29/17 Kev Moser MD [address] [place] [phone] Consulting Physician Oncology 02/09/20 documented as of this encounter
[2024-08-24 12:17] LABS: Add Urine Microscopic? NO; Appearance Urine Clear (Clear); Bilirubin Urine Negative (Negative); Blood Urine Negative (Negative); Color Urine Yellow (Yellow); Glucose Urine UA Negative (Negative); Ketones Urine Negative (Negative); Leukocyte Esterase Ur Negative LEU/UL (Negative); Nitrate Urine Negative (Negative); Protein Urine Negative (Negative); Specific Grav Ur 1.015 (1.001-1.035); Urobilinogen Urine 0.2 mg/dL (<2.0)
[2024-08-24 12:39] LABS: CRP < 0.5 mg/dL (<1.0)
[2024-08-24 13:00] LABS: Erythrocyte Sedimentation Rate 24 mm/hr (0-20)
--- OUTSIDE RECORDS SUMMARY | 2024-08-24 13:10 | XMS_ITS | Encounter Summary ---
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
--- OUTSIDE RECORDS SUMMARY | 2024-08-24 13:10 | XMS_ITS | Encounter Summary ---
Author Organization [facility] Address [address] [place] [address] Phone Care Team Providers Care Scout Name Role Phone Scott Oneill MD Primary Care Provider Tavo Mishra MD Unavailable [phone] Gilmer Barnard MD Unavailable [phone] Kev Moser MD Unavailable Reason for Visit * Reason Comments Medication Refill Encounter Details Date Type Department Care Team (Late st Contact Info) Description 07/01/2023 Refill [facility] [place] [address] [place] [phone] Sindi Qiu, HOMICIDE INVESTIGATOR, ANAESTHETIC TECHNICIAN [address] [place] [address] Medication Refill Social History Tobacco [...] on file Legal Sex Male 3:42 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 Gender Identity Not on file Sexual Orientation [...] CDT Lab [facility] [address] [phone] Lab, [facility] 09/01/2024 11:15 AM CDT Office Visit [facility] [address] [phone] Kev Moser MD [address] [place] [phone] 09/01/2024 11:30 AM CDT Clinical Support [facility] [address] [phone] Nurse, [facility] documented as of this encounter Visit Diagnoses Not on filedocumented in this encounter Additional Health Concerns Assessment Noted Time PHQ-9 Depression Total Score: 0 11/25/19 21 11:34 AM CDT documented as of this encounter Care Teams Scout Relationship Specialty Start Date End Date Scott Oneill MD PCP - General Internal Medicine 04/29/17 Tavo Mishra MD [address] [place] [phone] Internal Medicine 04/29/17 Gilmer Barnard MD [address] [place] [address] Consulting Physician Internal Medicine 08/28/17 4 Kev Moser MD [address] [place] [phone] Consulting Physician Oncology 02/09/20 documented as of this encounter
--- OUTSIDE RECORDS SUMMARY | 2024-08-24 13:10 | XMS_ITS | Continuity of Care Document ---
Author Organization [facility] Address [address] [place] [address] Phone Care Team Providers Care Bevel Mill Operator Name Role Phone Renny Garcia Unavailable Unavailable Advance Directives Directive Yes / No Effective Date File Name No Information Encounters Encounter Description Practice Location Reason(s) For Visit Diagnoses Date Provider Providers Copied on Encounter [facility], [address], [place], [place], [id number], [place] tel:[phone] [facility] [place] No Information Dec-0 6-200 [address] Edward. [address] [facility] , [address], [place], [address], [place]. tel:[phone] Family History Family Member Type Diagnosis Age At Onset No Information Payers Payer name Insurance type Covered green party ID Authoriza tion(s) BC[employer] [place] [id number] Social History Type Description Quantity Date Captured [...]
--- OUTSIDE RECORDS SUMMARY | 2024-08-24 13:10 | XMS_ITS | Clinical Summary ---
Author Organization [facility] Address [address] [address] Phone Care Team Providers Care Senior Integration Architect Name Role Phone Scott Oneill MD Primary Care Provider [phone] Tavo Mishra MD Unavailable [phone] Kev Moser MD Unavailable [phone] Allergies No known active allergies Medications Calcium [...] 2 times daily. Active ergocalciferol (VITAMIN D) 85740 UNIT Capsule Take 50,000 Units by mouth [...] 08/06/2024 Results Follow-Up [facility] [address] [phone] Tanvi Tobar APRN, KEYANA CULTURE, URINE 08/04/2024 11:30 AM CDT Clinical Support [facility] [address] [phone] Nurse, [facility] [place] Vitamin B 12 deficiency (Primary Dx); Urinary tract infection without hematuria, site unspecified 08/04/2024 11:15 AM CDT Office Visit [facility] [address] [phone] Tanvi Tobar APRN, KEYANA Anemia in stage 3a chronic kidney disease (HCC) (Primary Dx); Anemia in stage 3b chronic kidney disease (HCC); Iron deficiency anemia due to sideropenic dysphagia; Vitamin B 12 deficiency; Other autoimmune hemolytic anemia; Urinary tract infection without hematuria, site unspecified 08/04/2024 11:10 AM CDT Lab [facility] [address] [phone] Lab, [facility] [place] Other autoimmune hemolytic anemia; Vitamin B 12 deficiency 08/04/2024 Travel 07/22/2024 3:15 PM CDT Clinical Support [facility] [address] [phone] Nurse, [facility] [place] Other autoimmune hemolytic anemia (Primary Dx) 07/22/2024 Travel 07/22/2024 Telephone [facility] [address] [phone] Kev Moser MD canopy call/Eliquis samples 07/12/2024 Results Follow-Up [facility] [address] [phone] Sindi iQu APRN, KEYANA CMP (COMPREHENSIVE METABOLIC PANEL), COMPLETE BLOOD COUNT (CBC) WITH DIFF, ERYTHROCYTE SEDIMENTATION RATE (ESR) 07/12/2024 Refill [facility] [address] [phone] Tanvi Tobar APRN, ASSISTANT BRAND MANAGER Medication Refill 07/07/2024 11:15 AM CDT Clinical Support [facility] [address] [phone] Nurse, Cc [place]ne Stage 3a chronic kidney disease (HCC) (Primary Dx); Vitamin B 12 deficiency 07/07/2024 11:00 AM CDT Office Visit [facility] [address] [phone] Tanvi Tobar APRN, ASSISTANT BRAND MANAGER Other autoimmune hemolytic anemia (Primary Dx); Vitamin B 12 deficiency 07/07/2024 10:45 AM CDT Lab [facility] [address] [address] Lab, [facility] [place] Other autoimmune hemolytic anemia 07/07/2024 Travel 06/24/2024 9:00 AM CDT Clinical Support [facility] [address] [address] Nurse, [facility] [place] Other autoimmune hemolytic anemia (HCC) (Primary Dx) 06/24/2024 Travel 06/23/2024 Telephone [facility] [address] [phone] Kev Moser MD Canopy Call / Eliquis 06/15/2024 Refill [facility] [address] [phone] Tanvi Tobar APRN, ASSISTANT BRAND MANAGER Medication Refill 06/09/2024 11:30 AM CDT Clinical Support [facility] [address] [address] Nurse, [facility] [place] Vitamin B 12 deficiency (Primary Dx) 06/09/2024 11:15 AM CDT Office Visit [facility] [address] [phone] Sindi Qiu SCALE RECLAMATION TENDER, ASSISTANT BRAND MANAGER Other autoimmune hemolytic anemia (HCC) (Primary Dx) 06/09/2024 11:00 AM CDT Lab [facility] [address] [phone] Lab, Cc [facility] Other autoimmune hemolytic anemia (HCC); Stage 3a [...] file 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 Gender Identity Not on file Sexual Orientation [...] AM CDT Lab [facility] [address] [phone] Lab, [facility] 09/01/2024 11:15 AM CDT Office Visit [facility] [address] [phone] Kev Moser MD [address] [place] [phone] 09/01/2024 11:30 AM CDT Clinical Support [facility] [address] [phone] Nurse, [facility] Health Maintenance Due Date Last [...] 10:47 AM CDT ANCA (VASCULITIS) [place], [place] [id number] Routine 07/07/2024 10:47 AM CDT CULTURE, URINE [...] 10:51 AM CDT ANCA (VASCULITIS) [place], [place] [address]198 Routine 06/09/2024 10:51 AM CDT ERYTHROCYTE SEDIMENTATION [...] included. URINE CULTURE, ROUTINE FINAL REPORT(A) CANCER PRINTING MACHINE MECHANIC [facility] RESULT 1 ESCHERICHIA COLI(A) [facility] PRINTING MACHINE MECHANIC [facility] Comment: CEFAZOLIN WITH AN JOSE <=16 PREDICTS SUSCEPTIBILITY TO THE ORAL AGENTS CEFACLOR, CEFDINIR, CEFPODOXIME, CEFPROZIL, CEFUROXIME, CEPHALEXIN, AND LORACARBEF WHEN USED FOR THERAPY OF UNCOMPLICATED URINARY TRACT INFECTIONS DUE TO E. COLI, KLEBSIELLA PNEUMONIAE, AND PROTEUS MIRABILIS. 10,000-25,000 COLONY FORMING UNITS PER ML ANTIMICROBIAL SUSCEPTIBILITY COMMENT [facility] Comment: S = SUSCEPTIBLE; I = INTERMEDIATE; [...] Unknown 08/04/2024 11:27 AM CDT Narrative [facility] - 08/08/2024 3:07 AM CDT TESTING PERFORMED AT: [] [facility], [address] [place] [address], [place], [address], PHONE: [phone], MIRROR FRAMER: NAVEEN VEGA, PHD Release to patient->Immediate us Tanvi Tobar SCALE RECLAMATION TENDER, ASSISTANT BRAND MANAGER MICROBIOLOGY - GENERA L ORDERABLES Final Result CANCER PRINTING MACHINE MECHANIC [facility] [place] [address], * VITAMIN B12 (08/04/2024 10:37 AM CDT) Only the most recent of2 resultswithin the time period is included. Vitamin B12 711 180 - 914 pg/mL [facility] Blood 08/04/2024 10:3 7 AM CDT [facility] - 08/05/2024 3:02 PM CDT Release to patient->Immediate Tanvi Tobar SCALE RECLAMATION TENDER, ASSISTANT BRAND MANAGER CHEMISTRY ORDERABLES Final Result Performing Organization Address City/[facility]/ZIP Co de Phone Number [facility] [address] [place] [address], * FOLIC ACID (FOLATE) (08/04/2024 10:37 AM CDT) Only the most recent of2 resultswithin the time period is included. Folate 14.45 >=5.90 ng/mL [facility] Blood 08/04/2024 10:3 7 AM CDT [facility] - 08/05/2024 3:02 PM CDT Release to patient->Immediate IS THE PATIENT REQUIRED TO BE FASTING FOR 12 HOURS?->No Tanvi Tobar SCALE RECLAMATION TENDER, ASSISTANT BRAND MANAGER CHEMISTRY ORDERABLES Final Result Performing Organization Address City/[facility]/ZIP Co de Phone Number [facility] Cancer Care [facility] [address] [place] [address], * (ABNORMAL) CMP (COMPREHENSIVE METABOLIC PANEL) (08/04/2024 10:37 AM CDT) Only the most recent of3 resultswithin the time period is included. Glucose 137(H) 70 - 105 mg/dL [facility] Blood Urea Nitrogen 38(H) 7 - 25 mg/dL [facility] Creatinine 2.3(H) 0.7 - 1.3 mg/dL [facility] Sodium 137 136 - 145 mEq/L [facility] Potassium 4.7 3.5 - 5.1 mEq/L [facility] Chloride 104 98 - 107 mEq/L [facility] Bicarbonate 21 21 - 31 mEq/L [facility] Total Bilirubin 0.7 0.3 - 1.0 mg/dL [facility] Alk. Phosphatase 76 34 - 104 U/L [facility] Aspartate Aminotransferase 12(L) 13 - 39 U/L [facility] Alanine Aminotransferase 11 7 - 52 U/L [facility] Total Protein 6.1(L) 6.4 - 8.9 g/dL [facility] Albumin 4.2 3.5 - 5.7 g/dL [facility] Calcium 8.3(L) 8.6 - 10.3 mg/dL [facility] Anion Gap 16.7(H) 7.0 - 15.0 mEq/L [facility] Globulin 1.9(L) 2.0 - 3.5 g/dL [facility] EGFR 30(L) >60 ml/min/1. 73m2 [facility] Comment: This eGFR is calculated using 2020 CKD-EPI Creatinine equation without race modifier based on the NKF-ASN task force recommendations Equation: zNIP=356*min(SCr/k,1)a*max(SCr/k,1)-1.200*0.9938Age*1.012 (if female), where SCr is serum creatinine, k is 0.7 for females and 0.9 for males, and a is -0.241 for females and -0.302 for males Blood 08/04/2024 10:3 7 AM CDT Narrative [facility] - 08/04/2024 11:46 AM CDT Release to patient->Immediate IS THE PATIENT REQUIRED TO BE FASTING FOR 8 HOURS?->No us Tanvi Tobar SCALE RECLAMATION TENDER, ASSISTANT BRAND MANAGER CHEMISTRY ORDERABLES Final Result CANCER PRINTING MACHINE MECHANIC [facility] [address], * (ABNORMAL) COMPLETE BLOOD COUNT (CBC) WITH DIFF (08/04/2024 10:37 AM CDT) Only the most recent of3 resultswithin the time period is included. WBC 5.7 4.0 - 10.0 10*3/uL CANCER PRINTING MACHINE MECHANIC [facility] HGB 10.9(L) 13.7 - 17.5 g/dL CANCER PRINTING MACHINE MECHANIC [facility] HCT 34.8(L) 40.1 - 51.0 % CANCER PRINTING MACHINE MECHANIC [facility] PLT 155(L) 163 - 369 10*3/uL [facility] MPV 10.3 9.4 - 12.4 fL CANCER PRINTING MACHINE MECHANIC [facility] RBC 3.84(L) 4.63 - 6.08 10*6/uL [facility] MCV 91 79 - 95 fL CANCER PRINTING MACHINE MECHANIC [facility] MCH 28.4 25.6 - 32.2 pg CANCER PRINTING MACHINE MECHANIC [facility] MCHC 31.3(L) 32.2 - 36.5 g/dL [facility] RDW 14.0 11.6 - 14.4 % CANCER PRINTING MACHINE MECHANIC [facility] Absolute Neutrophil Count 4,609 cells/uL [facility] ER SPECIALISTS [facility] Absolute Seg Count 4,609 1,440 - 6,600 cells/uL [facility] Absolute Lymph Count 569(L) 760 - 4,000 cells/uL [facility] Absolute [place] Count 455 160 - 1,200 cells/uL [facility] Absolute Baso Count 57 0 - 100 cells/uL CANCER PRINTING MACHINE MECHANIC [facility] Segmented Neutrophils 81(H) 36 - 66 % CANCER PRINTING MACHINE MECHANIC [facility] Lymphocytes 10(L) 19 - 40 % [facility] C [facility] Monocytes 8 4 - 12 % [facility]CER [facility] Basophils 1 0 - 1 % [facility] WBC Estimate Normal CANCER PRINTING MACHINE MECHANIC [facility] Platelet Estimate Low CANCER PRINTING MACHINE MECHANIC [facility] RBC Morphology Normal CANCE R PRINTING MACHINE MECHANIC [facility] Blood 08/04/2024 10:3 7 AM CDT Narrative [facility] - 08/04/2024 2:21 PM CDT Release to patient->Immediate Tanvi Tobar APRN, ASSISTANT BRAND MANAGER HEMATOLOGY ORDERABLES Final Result [facility] [address], [place] [phone] * ANCA (VASCULITIS) [place], [place] [id number] (07/07/2024 10:47 AM CDT) Only the most recent of2 resultswithin the time period is included. ANTI-MPO ANTIBODIES 0.2 0.0 - 0.9 UNITS [facility] ANTI-PR3 ANTIBODIES <0.2 0.0 - 0.9 UNITS [facility] CYTOPLASMIC (C-ANCA) <1:20 NEG:<1:20 TITER [facility] PERINUCLEAR (P-ANCA) <1:20 NEG:<1:20 TITER [facility] Comment: THE PRESENCE OF POSITIVE FLUORESCENCE EXHIBITING P-ANCA OR C-ANCA PATTERNS ALONE IS NOT SPECIFIC FOR THE DIAGNOSIS OF FADI'S GRANULOMATOSIS (WG) OR MICROSCOPIC POLYANGIITIS. DECISIONS ABOUT TREATMENT SHOULD NOT BE BASED SOLELY ON ANCA IFA RESULTS. THE INTERNATIONAL ANCA GROUP CONSENSUS RECOMMENDS FOLLOW UP TESTING OF POSITIVE SERA WITH BOTH PA- 3 AND MPO-ANCA ENZYME IMMUNOASSAYS. MANY 5% SERUM SAMPLES ARE POSITIVE ONLY BY EIA. REF. AM J CLIN PATHOL 1999;111:507-513. ATYPICAL PANCA <1:20 NEG:<1:20 TITER [facility] Comment: THE ATYPICAL PANCA PATTERN HAS BEEN OBSERVED IN A SIGNIFICANT PERCENTAGE OF PATIENTS WITH ULCERATIVE COLITIS, PRIMARY SCLEROSING CHOLANGITIS AND AUTOIMMUNE HEPATITIS. 07/07/2024 10:4 7 AM CDT Narrative [facility] - 07/09/2024 8:18 PM CDT TESTING PERFORMED AT: [BN] [address], [address], PHONE: [phone], MIRROR FRAMER: SHOAIB OCAMPO MD TESTING PERFORMED AT: [] [facility], [address] [facility], [place], [address], PHONE: [phone], MIRROR FRAMER: NAVEEN VEGA, PHD Tiffanie Weiss MD LAB SEND OUTS Final Result CANCER PRINTING MACHINE MECHANIC [facility] [place] [address] [place] [address], * (ABNORMAL) URINALYSIS WITH MICROSCOPIC, C/S IF INDICATED [place] (07/07/2024 10:47 AM CDT) Urine Color Light Yellow Straw-Yel low CANCER PRINTING MACHINE MECHANIC OF [facility] Urine Clarity Clear Clear CANCER PRINTING MACHINE MECHANIC [facility] Urine Glucose NEG NEG mg/dL CANCER PRINTING MACHINE MECHANIC [facility] Urine Bilirubin NEG NEG mg/dL CANC ER PRINTING MACHINE MECHANIC OF [facility] Urine Ketones NEG NEG mg/dL CANCER PRINTING MACHINE MECHANIC [facility] Urine Specific [place] 1.020 1.015 - 1.020 CANCER PRINTING MACHINE MECHANIC [facility] Urine Blood NEG NEG mg/L [facility] Urine pH 5.0 5.0 - 8.0 [pH] CANCER PRINTING MACHINE MECHANIC [facility] Urine Protein NEG NEG mg/dL CANCER PRINTING MACHINE MECHANIC [facility] Urine Urobilinogen 0.2 0.2 - 1.0 mg/dL CANCER PRINTING MACHINE MECHANIC OF [facility] Urine Nitrite NEG NEG CANCER PRINTING MACHINE MECHANIC [facility] Urine Leukocytes NEG NEG CAN CER PRINTING MACHINE MECHANIC OF [facility] Urine Epithelial Cells Rare None,Rare ,Few /LPF CANCER PRINTING MACHINE MECHANIC OF [facility] Urine Mucus Few(A) None /LPF [facility] Urine Cast None None /LPF [facility] CE NTER [facility] Urine Bacteria Few(A) None /HPF CANCE R PRINTING MACHINE MECHANIC OF [facility] Urine Crystal None None /LPF CANCER PRINTING MACHINE MECHANIC [facility] Urine White Blood Cells 5-10(A) 0 - 4 /HPF CANCER PRINTING MACHINE MECHANIC [facility] Urine Red Blood Cells 0-2 0 - 2 /HPF CANCER PRINTING MACHINE MECHANIC [facility] 07/07/2024 10:4 7 AM CDT us Tiffanie Weiss MD LAB SEND OUTS Final Result Performing Organization Address [facility] Co de Phone Number CANCER PRINTING MACHINE MECHANIC [facility] [place] [address] [place] [address], * (ABNORMAL) C-REACTIVE PROTEIN (CRP) QUANT (07/07/2024 10:47 AM CDT) Only the most recent of2 resultswithin the time period is included. CRP 7.4(H) <5.0 mg/L CANCER [facility] 07/07/2024 10:4 7 AM CDT Tiffanie Weiss MD CHEMISTRY ORDERABLES Final Resul t Performing Organization Address [facility] Co de Phone Number CANCER PRINTING MACHINE MECHANIC [facility] [address] [place] [address], * (ABNORMAL) ERYTHROCYTE SEDIMENTATION RATE (ESR) (07/07/2024 10:39 AM CDT) Only the most recent of2 resultswithin the time period is included. Erythrocyte Sedimentation Rate 44(H) 0 - 20 mm/hr [facility] 07/07/2024 10:3 9 AM CDT Sindi Qiu SCALE RECLAMATION TENDER, ASSISTANT BRAND MANAGER HEMATOLOGY ORDERABLES Final Result Performing Organization Address City/[facility] Co de Phone Number [facility] [place] [address] [place] [address], * URINALYSIS WITH MICROSCOPIC [place] (06/09/2024 10:51 AM CDT) Urine Color Yellow Straw-Yel low CANCER PRINTING MACHINE MECHANIC [facility] Urine Clarity Clear Clear CANCER PRINTING MACHINE MECHANIC [facility] Urine Glucose NEG NEG mg/dL [facility] PRINTING MACHINE MECHANIC [facility] Urine Bilirubin NEG NEG mg/dL CANC PRINTING MACHINE MECHANIC [facility] Urine Ketones NEG NEG mg/dL CANCER PRINTING MACHINE MECHANIC [facility] Urine Specific [place] 1.020 1.015 - 1.020 CANCER PRINTING MACHINE MECHANIC OF [facility] Urine Blood NEG NEG mg/L [facility] Urine pH 5.0 5.0 - 8.0 [pH] CANCER PRINTING MACHINE MECHANIC OF [facility] Urine Protein NEG NEG mg/dL CANCER PRINTING MACHINE MECHANIC [facility] Urine Urobilinogen 0.2 0.2 - 1.0 mg/dL [facility]ER PRINTING MACHINE MECHANIC [facility] Urine Nitrite NEG NEG CANCER PRINTING MACHINE MECHANIC OF [facility] Urine Leukocytes NEG NEG CAN CER PRINTING MACHINE MECHANIC [facility] Urine Epithelial Cells Few None,Rare ,Few /LPF CANCER PRINTING MACHINE MECHANIC OF [facility] Urine Mucus None None /LPF [facility] Urine Cast None None /LPF [facility] CE NTER [facility] Urine Bacteria None None /HPF CANCE R PRINTING MACHINE MECHANIC [facility] Urine Crystal None None /LPF CANCER PRINTING MACHINE MECHANIC [facility] Urine White Blood Cells 0-4 0 - 4 /HPF CANCER PRINTING MACHINE MECHANIC [facility] Urine Red Blood Cells 0-2 0 - 2 /HPF CANCER PRINTING MACHINE MECHANIC [facility] 06/09/2024 10:5 1 AM CDT Tiffanie Weiss MD LAB SEND OUTS Final Result CANCER PRINTING MACHINE MECHANIC [facility] [place] [address], * IRON W/ IRON BINDING CAPACITY [place] (06/09/2024 10:44 AM CDT) IRON 80 50 - 212 ug/dL CANCER PRINTING MACHINE MECHANIC [facility] UIBC 185 155 - 355 ug/dL CANCER PRINTING MACHINE MECHANIC [facility] TIBC 265 261 - 478 ug/dl CANCER PRINTING MACHINE MECHANIC [facility] % Saturation 30 20 - 50 % CANCER PRINTING MACHINE MECHANIC [facility] 06/09/2024 10:4 4 AM CDT Narrative CANCER PRINTING MACHINE MECHANIC [facility] - 06/09/2024 11:42 AM CDT Release to patient->Immediate Sindi Qiu SCALE RECLAMATION TENDER, ASSISTANT BRAND MANAGER LAB SEND OUTS Final Result CANCER PRINTING MACHINE MECHANIC OF [facility] [address] [place] [address], [place] [phone] * RETICULOCYTE COUNT (RETIC) (06/09/2024 10:44 AM CDT) Reticulocyte count 1.76 0.51 - 1.81 % [facility] RET-He 30.10 28.20 - 36.60 pg CANCER PRINTING MACHINE MECHANIC [facility] Comment: RET-He is a direct assessment of incorporation of iron into erythrocyte hemoglobin. It provides an indirect measure of the iron available for new erythropoiesis over past 2-4 days. Blood 06/09/2024 10:4 4 AM CDT [facility] - 06/09/2024 11:09 AM CDT Release to patient->Immediate us Sindi Qiu APRN, ASSISTANT BRAND MANAGER HEMATOLOGY ORDERABLES Final Result [facility] [address], [place] [phone] * LACTATE DEHYDROGENASE (LD) (06/09/2024 10:44 AM CDT) LDH 168 140 - 271 U/L [facility] Blood 06/09/2024 10:4 4 AM CDT [facility] - 06/09/2024 11:42 AM CDT Release to patient->Immediate us Sindi Qiu APRN, ASSISTANT BRAND MANAGER CHEMISTRY ORDERABLES Final Result [facility] [place] [address], [place] [phone] * (ABNORMAL) FERRITIN (06/09/2024 10:44 AM CDT) Ferritin 465(H) 24 - 336 ng/mL [facility] Blood 06/09/2024 10:4 4 AM CDT Narrative CANCER PRINTING MACHINE MECHANIC OF [facility] - 06/10/2024 3:03 PM CDT Release to patient->Immediate Sindi Qiu APRN, ASSISTANT BRAND MANAGER CHEMISTRY ORDERABLES Final Result CANCER PRINTING MACHINE MECHANIC OF [facility] [address] [place] [address], [place] [phone] from Last 3 Months Insurance MEDICARE MEDICARE [facility] Care Teams Senior Integration Architect Relationship Specialty Start Date End Date Scott Oneill MD PCP - General Internal Medicine 04/29/17 Tavo Mishra MD [address] [id number] Internal Medicine 04/29/17 Kev Moser MD [address] [place] [phone] Consulting Physician Oncology 02/09/20
--- OUTSIDE RECORDS SUMMARY | 2024-08-24 13:10 | XMS_ITS | Clinical Summary ---
Author Organization [facility] Address [address] [place] [address] Care Team Providers Care Factory Process Workers Name Role Phone Scott Oneill MD Primary Care Provider Allergies No known active allergies Medications atorvastatin [...] on file Legal Sex Male 9:59 AM CORDUROY CUTTER OPERATOR Gender Identity Not on file Sexual Orientation Not on file Last Filed Vital Signs Vital Sign Reading Time Taken Comments Blood Pressure 146/58 05/02/2017 10:20 AM CORDUROY CUTTER OPERATOR Pulse 103 05/02/2017 10:20 AM CORDUROY CUTTER OPERATOR Temperature 36.9 C (98.5 F) 05/02/2017 10:20 AM [employer] C[employer]TER OPERATOR Respiratory Rate 18 05/02/2017 10:20 AM [employer] CUTTER OPERATOR Oxygen Saturation - - Inhaled Oxygen Concentration - - Weight 97.1 kg (214 lb) 05/02/2017 10:20 AM [employer] CUTTER OPERATOR Height 166.4 cm (5' 5.5) 05/02/2017 10:20 AM CS T Body Mass Index 35.07 05/02/2017 10:20 AM [employer]UR[employer] CUTTER OPERATOR Plan of Treatment Health Maintenance Due [...] series) 2014 INFLUENZA VACCINE (#1) 2023 Insurance [employer] Care Teams [employer] Workers Relationship Specialty Start Date End Date Scott Oneill MD [id number] [id number] PCP - General Internal Medicine 05/02/17
--- OUTSIDE RECORDS SUMMARY | 2024-08-24 13:10 | XMS_ITS | Encounter Summary ---
Author Organization [facility] Address [address] [place] [address] Phone Care Team Providers Care Package Dyeing Machine Operator Name Role Phone Scott Oneill MD Primary Care Provider Tavo Mishra MD Unavailable [phone] Gilmer Barnard MD Unavailable [phone] Kev Moser MD Unavailable [phone] Reason for Visit * Reason Comments Medication Refill Encounter Details Date Type Department Care Team (Late st Contact Info) Description 08/26/2023 Refill [facility] [address] [address] Kev Moser MD [address] [place] [phone] Medication Refill Social History Tobacco Use [...] on file Legal Sex Male 3:42 PM 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 UROLOGIST Gender Identity Not on file Sexual Orientation [...] AM CDT Lab [facility] [address] [phone] [facility] 09/01/2024 11:15 AM CDT Office Visit [facility] [address] [phone] Kev Moser MD [address] [place] [phone] 09/01/2024 11:30 AM CDT Clinical Support [facility] [address] [phone] Nurse, [facility] documented as of this encounter Visit Diagnoses Not on filedocumented in this encounter Additional Health Concerns Assessment Noted Time PHQ-9 Depression Total Score: 0 11/25/19 21 11:34 AM CDT documented as of this encounter Care Teams Package Dyeing Machine Operator Relationship Specialty Start Date End Date Scott Oneill MD PCP - General Internal Medicine 04/29/17 Tavo Mishra MD [address] [place] [address] [phone] Internal Medicine 04/29/17 Gilmer Barnard MD [address] [place] [address] [phone] Consulting Physician Internal Medicine 08/28/17 4 Kev Moser MD [address] [place] [phone] Consulting Physician Oncology 02/09/20 documented as of this encounter
--- OUTSIDE RECORDS SUMMARY | 2024-08-24 13:10 | XMS_ITS | Clinical Summary ---
Author Organization [facility] [address] Address [address] [place] [address] Care Team Providers Care It Help Desk Analyst Name Role Phone Scott Oneill MD Primary Care Provider [phone] Allergies No known active allergies Medications potassium [...] Type Department Care Team Description 08/10/2024 Telephone [facility] Pulmonary [facility] Medicine [facility] [place] [address] [place] [address] Margret Cobb CMA 08/06/2024 Documentation [facility] Pulmonary [address] [place] [address] [place] [address] Polly Paulino RN 08/05/2024 3:00 PM CDT Office Visit [facility] Pulmonary [facility] [address] [place] [address] [place] [address] Marce Bernal MD Interstitial lung disease (HCC) (Primary Dx); Stage 3b chronic kidney disease (HCC); BMI 35.0-35.9,adult; Microscopic polyangiitis (HCC) 08/05/2024 1:22 PM CDT - 08/05/2024 11:59 PM CDT Hospital Encounter [facility] Pulmonary [facility] [address] [address] Microscopic polyangiitis (HCC) Discharge Disposition: Discharge to [...] on file Legal Sex Male 1:23 AM BOX BLANK MACHINE OPERATOR Gender Identity Male 12/24/2023 11:25 AM CDT Sexual Orientation Straight 12/24/2023 11 :25 AM CDT 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 Start Date Job End Date 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 [facility] Division of Pulmonary & Critical Care Medicine [address] [place] [address]; [place] [address]; [place] [id number]; [phone] Pulmonary Function Laboratory Pulmonary Stress Test Simple/Oxygen [...] Work [distance (m) x body wt (kg)]: 64059 kg.m (normal >60,000kg.m) Oxygen required to maintain SpO2 greater than 90% during six minutes of walkin L/M Comments: [id number] STOPPED DUE HIP AND LEG PAIN. Interpretation: [...] final report. PFT performed at:->[facility] Adult PFT Lab- CAM-8D Procedure:->Spirometry Procedure:->Oxygen Assessment [...] and %HbO2 is age dependent. However, the [facility] Pulmonary Function Laboratory defines hypoxemia as a PaO2 <56 mm Hg or a %HbO2 <89%. Starting on March of 2024 the [facility] Pulmonary Function Laboratory utilizes race neutral GLI Global normative equations. us Marce Bernal MD PFT ORDERABLES Final Result * SCAN - LABS (06/02/2024) us Provider Scanning Edited Result - Final from Last 3 Months Insurance MEDICARE [facility] MEDICARE [facility] [place] [facility] [place] [address] MEDICARE Advance Directives For more information, please contact: [phone] * Full Code (Latest Code Status on File) Date Activated Date Inactivated Comments 07/17/2020 8:05 PM 07/19/2020 7:41 PM * Full Code Date Activated Date Inactivated Comments 06/08/2020 6:02 PM 06/15/2020 7:20 PM Healthcare Agents on File Name Relationship Healthcare Agent Relationship Communication Shyann Nielsen Spouse First Alternat e Health Care Agent Care Teams It Help Desk Analyst Relationship Specialty Start Date End Date Scott Oneill MD PCP - General Internal Medicine 04/27/20
--- OUTSIDE RECORDS SUMMARY | 2024-08-24 13:10 | XMS_ITS | Encounter Summary ---
Author Organization [facility] Address [address] [place] [address] Phone Care Team Providers Care Vascular Tech Name Role Phone Scott Oneill MD Primary Care Provider Tavo Mishra MD Unavailable [phone] Gilmer Barnard MD Unavailable [phone] Kev Moser MD Unavailable Encounter Details Date Type Department Care Team (Late st Contact Info) Description 11/04/2023 Telephone [facility] [address] [place] [address] Kev Moser MD [address] [place] [phone] Social History Tobacco Use Types Packs/Day [...] on file 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 Gender Identity Not on file Sexual Orientation Not on file documented as of this encounter Plan of Treatment Upcoming Encounters Date Type Department Care Team (Late st Contact Info) Description 09/01/2024 11:00 AM CDT Lab [facility] [address] [phone] [facility] 09/01/2024 11:15 AM CDT Office Visit [facility] [address] [phone] Kev Moser MD [address] [place] [phone] 09/01/2024 11:30 AM CDT Clinical Support [facility] [address] [phone] Nurse, [facility] documented as of this encounter Visit Diagnoses Not on filedocumented in this encounter Additional Health Concerns Assessment Noted Time PHQ-9 Depression Total Score: 0 11/25/19 21 11:34 AM CDT documented as of this encounter Care Teams Vascular Tech Relationship Specialty Start Date End Date Scott Oneill MD PCP - General Internal Medicine 04/29/17 Tavo Mishra MD [address] [address] Internal Medicine 04/29/17 Gilmer Barnard MD [address] [address] Consulting Physician Internal Medicine 08/28/17 4 Kev Moser MD [address] [place] [phone] Consulting Physician Oncology 02/09/20 documented as of this encounter
--- OUTSIDE RECORDS SUMMARY | 2024-08-24 13:10 | XMS_ITS | Encounter Summary ---
Author Organization [facility] Address [address] [place] [address] Phone Care Team Providers Care Tombstone Erector Helper Name Role Phone Scott Oneill MD Primary Care Provider Tavo Mishra MD Unavailable [phone] Gilmer Barnard MD Unavailable [phone] Kev Moser MD Unavailable [phone] Reason for Visit * Reason Comments Medication Refill Encounter Details Date Type Department Care Team (Late st Contact Info) Description 07/27/2023 Refill [facility] [address] [phone] Kev Moser MD [address] [place] [phone] Medication Refill Social History Tobacco Use [...] on file 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 Refill if appropriate. documented in this encounter Plan of Treatment Upcoming Encounters Date Type Department Care Team (Late st Contact Info) Description 09/01/2024 11:00 AM CDT Lab [facility] [address] [phone] Lab, [facility] 09/01/2024 11:15 AM CDT Office Visit [facility] [address] [phone] Kev Moser MD [address] [place] [phone] 09/01/2024 11:30 AM CDT Clinical Support [facility] [address] [phone] Nurse, [facility] documented as of this encounter Visit Diagnoses Not on filedocumented in this encounter Additional Health Concerns Assessment Noted Time PHQ-9 Depression Total Score: 0 11/25/19 11:34 AM CDT documented as of this encounter Care Teams Tombstone Erector Helper Relationship Specialty Start Date End Date Scott Oneill MD PCP - General Internal Medicine 04/29/17 Tavo Mishra MD [address] [place] [address] [phone] Internal Medicine 04/29/17 Gilmer Barnard MD [address] [place] [address] [phone] Consulting Physician Internal Medicine 08/28/17 4 Kev Moser MD [address] [place] [phone] Consulting Physician Oncology 02/09/20 documented as of this encounter
--- OUTSIDE RECORDS SUMMARY | 2024-08-24 13:11 | XMS_ITS | Encounter Summary ---
Author Organization 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
--- OUTSIDE RECORDS SUMMARY | 2024-08-24 13:11 | XMS_ITS | CONTINUITY OF CARE DOCUMENT ---
Author Name shabbir shea Address Unknown Organization [facility] Address [address] [place] [address] [address] [place] [address] Phone [phone] Care Team Providers Care Manager Fleet Name Role Phone Carla HAMMOND, Ny Franz Unavailable Scott Oneill MD Unavailable Scott Oneill MD Unavailable [phone] INSURANCE PROVIDERS Payer name Policy type / Coverage type [place] red green party ID [employer] Commercial insura [place] [id number] [place] Medicare [id number]
--- OUTSIDE RECORDS SUMMARY | 2024-08-24 13:11 | XMS_ITS | Encounter Summary ---
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
--- OUTSIDE RECORDS SUMMARY | 2024-08-24 13:11 | XMS_ITS | Clinical Summary ---
Author Organization [facility] Address [address] [place] [address] Phone Care Team Providers Care Lead Furnace Operator Name Role Phone Bia Oneill MD Primary Care Provider [phone] Allergies No known active allergies Medications apixaban [...] 2 Active ergocalciferol (VITAMIN D2) 1.25 MG (50548 UT) capsule Take 1 capsule by mouth [...] Comments Blood Pressure 128/60 02/27/2022 1:41 PM PUBLIC SAFETY DIRECTOR Pulse 72 02/27/2022 1:41 PM PUBLIC SAFETY DIRECTOR Temperature 36.7 C (98 F) 02/27/2022 1:41 PM PUBLIC SAFETY DIRECTOR Respiratory Rate - - Oxygen Saturation - - Inhaled Oxygen Concentration - - Weight 96.2 kg (212 lb) 02/27/2022 1:41 PM PUBLIC SAFETY DIRECTOR Height 165.1 cm (5' 5) 02/27/2022 1:41 PM PUBLIC SAFETY DIRECTOR Body Mass Index 35.28 02/27/2022 1:41 PM PUBLIC SAFETY DIRECTOR Plan of Treatment Health Maintenance Due Date Last Done Comments Pneumococcal PPSV23/PCV13 65 + Years / High and Highest Risk (1 of 5 - PCV) 1974 COVID-19 Vaccine (2023-2 5 season) 2023 07/11/2020, 05/13/2020, 05/13/2020 Influenza Vaccine (Season Ended) 2024 12/29/2021, 02/06/2020, 12/27/2019, Additional history exists [facility] [id number] [facility] MEDICARE SUPPLEMENT ANDRES NEUMANN [id number] Care Teams Lead Furnace Operator Relationship Specialty Start Date End Date Bia Oneill MD [address] [address] PCP - General Internal Medicine 07/16/18
--- OUTSIDE RECORDS SUMMARY | 2024-08-24 13:11 | XMS_ITS | Encounter Summary ---
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
--- OUTSIDE RECORDS SUMMARY | 2024-08-24 13:11 | XMS_ITS | Encounter Summary ---
Author Organization [facility] Address [address] [place] [address] Phone Care Team Providers Care Junior Bookkeeper Name Role Phone Scott Oneill MD Primary Care Provider Tavo Mishra MD Unavailable [phone] Kev Moser MD Unavailable [phone] Reason for Visit * Reason Onset Date Comments canopy call/moss picker Eliquis samples 05/26/2024 Encounter Details Date Type Department Care Team (Late st Contact Info) Description 05/26/2024 Telephone [facility] [address] [place] [address] Kev Moser MD [address] [place] [phone] canopy call/moss picker Eliquis samples Social History Tobacco Use [...] on file Legal Sex Male 3:42 PM PRIZER HAND Gender Identity Not on file Sexual Orientation Not on file documented as of this encounter Miscellaneous Notes * Telephone Encounter - Anne Valentin RN - 05/26/2024 2:45 PM PRIZER HAND Pt arrived today to moss picker samples. ER HAND * Telephone Encounter - Suzie Black RN - 05/26/2024 1:57 PM CST pt called to speak to Fritz regarding Eliquis samples [phone] Spoke with patient he will moss picker Eliquis samples today by 3pm. ER HAND documented in this encounter Plan of Treatment Upcoming Encounters Date Type Department Care Team (Late st Contact Info) Description 09/01/2024 11:00 AM CDT Lab [facility] [address] [phone] Lab, [facility] 09/01/2024 11:15 AM CDT Office Visit [facility] [address] [phone] Kev Moser MD [address] [place] [phone] 09/01/2024 11:30 AM CDT Clinical Support [facility] [address] [phone] Nurse, [facility] documented as of this encounter Visit Diagnoses Not on filedocumented in this encounter Additional Health Concerns Assessment Noted Time PHQ-9 Depression Total Score: 0 11/25/19 21 11:34 AM CDT documented as of this encounter Care Teams Junior Bookkeeper Relationship Specialty Start Date End Date Scott Oneill MD PCP - General Internal Medicine 04/29/17 Tavo Mishra MD [address] [address] Internal Medicine 04/29/17 Kev Moser MD [address] [place] [phone] Consulting Physician Oncology 02/09/20 documented as of this encounter
--- OUTSIDE RECORDS SUMMARY | 2024-08-24 13:11 | XMS_ITS | Encounter Summary ---
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
--- OUTSIDE RECORDS SUMMARY | 2024-08-24 13:11 | XMS_ITS | Encounter Summary ---
Author Organization [facility] Address [address] [place] [address] Phone Care Team Providers Care Columnist/Commentator Name Role Phone Bia Oneill MD Primary Care Provider [phone] Reason for Visit * Reason Comments Med Refill Encounter Details Date Type Department Care Team (Late st Contact Info) Description 05/27/2021 [address]ill [facility] Nephrology and Hypertension [address] [facility], [address] [address] Gilmer Barnard MD [address] [facility], [address] [place] [address] Social History Tobacco Use Types Packs/Day Years [...] on file Legal Sex Male 10:[address] [facility] Gender Identity Not on file Sexual Orientation Not on file documented as of this encounter Plan of Treatment Not on file documented as of this encounter Visit Diagnoses Not on filedocumented in this encounter Care Teams Columnist/Commentator Relationship Specialty Start Date End Date Bia Oneill MD [address] [facility] [address] [place] [address] PCP - General Internal Medicine 07/16/18 documented as of this encounter
--- OUTSIDE RECORDS SUMMARY | 2024-08-24 13:11 | XMS_ITS | Encounter Summary ---
Author Organization [facility] Address [address] [place] [address] Phone Care Team Providers Care Telesales Supervisor Name Role Phone Scott Oneill MD Primary Care Provider Kev Prince DO Unavailable [phone] Tavo Mishra MD Unavailable [phone] Gilmer Barnard MD Unavailable [phone] Kev Moser MD Unavailable [phone] Encounter Details Date Type Department Care Team (Late st Contact Info) Description 08/11/2020 Telephone [facility] [address] [place] [address] Kev Moser MD [address] [place] [phone] Social History Tobacco Use Types Packs/Day [...] on file 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 I have a call out to get those labs faxed over but were there other labs that you needed that [facility] did not draw on Friday? documented in this encounter Plan of Treatment Upcoming Encounters Date Type Department Care Team (Late st Contact Info) Description 09/01/2024 11:00 AM CDT Lab [facility] [address] [phone] Lab, [facility] 09/01/2024 11:15 AM CDT Office Visit [facility] [address] [phone] Kev Moser MD [address] [place] [phone] 09/01/2024 11:30 AM CDT Clinical Support [facility] [address] [phone] Nurse, [facility] documented as of this encounter Visit Diagnoses Not on filedocumented in this encounter Additional Health Concerns Assessment Noted Time PHQ-9 Depression Total Score: 0 08/12/19 21 11:41 AM CDT documented as of this encounter Care Teams Telesales Supervisor Relationship Specialty Start Date End Date Scott Oneill MD PCP - General Internal Medicine 04/29/17 Kev Prince DO Gastroenterology 04/29/17 12/09/22 Tavo Mishra MD [address] [facility] [address] [place] [address] [phone] Internal Medicine 04/29/17 Gilmer Barnard MD [address] [place] [address] [phone] Consulting Physician Internal Medicine 08/28/17 4 Kev Moser MD [address] [place] [phone] Consulting Physician Oncology 02/09/20 documented as of this encounter
--- OUTSIDE RECORDS SUMMARY | 2024-08-24 13:11 | XMS_ITS | Encounter Summary ---
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
--- OUTSIDE RECORDS SUMMARY | 2024-08-24 13:11 | XMS_ITS | Encounter Summary ---
Author Organization [facility] Address [address] [place] [address] Phone Care Team Providers Care Dining Host Name Role Phone Scott Oneill MD Primary Care Provider [phone] Encounter Details Date Type Department Care Team [...] on file Legal Sex Male 1:23 AM OWNER ORAL SURGEON Gender Identity Male 12/24/2023 11:25 AM CDT [...] on filedocumented in this encounter Care Teams Dining Host Relationship Specialty Start Date End Date Scott Oneill MD PCP - General Internal Medicine 04/27/20 documented as of this encounter
--- OUTSIDE RECORDS SUMMARY | 2024-08-24 13:11 | XMS_ITS | Referral Summary ---
Author Organization [facility] [address] Address [address] [place] [address] Care Team Providers Care Processes Chemical Design Engineer Name Role Phone Scott Oneill MD Primary Care Provider [phone] Encounters Date Type Department Care Team Description 08/10/2024 Telephone [facility] Pulmonary [facility] Advanced [facility] [address]th [place] [address] [place] [address] Margret Cobb CMA 08/06/2024 Documentation [facility] Pulmonary [address] [facility] 8th [place] [address] [place] [address] Polly Paulino RN 08/05/2024 3:00 PM CDT Office Visit [facility] Pulmonary [facility] 8th [place] [address] [place] [address] Marce Bernal MD Interstitial lung disease (HCC) (Primary Dx); Stage 3b chronic kidney disease (HCC); BMI 35.0-35.9,adult; Microscopic polyangiitis (HCC) 08/05/2024 1:22 PM CDT - 08/05/2024 11:59 PM CDT Hospital Encounter [facility] Pulmonary 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 [facility] Division of Pulmonary & Critical Care Medicine [address] [place] [address]; [place] [address] [facility]; [place] [address]; [phone] Pulmonary Function Laboratory Pulmonary Stress Test Simple/Oxygen [...] Work [distance (m) x body wt (kg)]: 48555 kg.m (normal >60,000kg.m) Oxygen required to maintain SpO2 greater than 90% during six minutes of walkin L/M Comments: [id number] STOPPED DUE HIP AND LEG PAIN. Interpretation: [...] with the written final report. PFT performed at:->[facility] Adult PFT Lab- [facility]-8D Procedure:->Spirometry Procedure:->Oxygen [...] and %HbO2 is age dependent. However, the [facility] Pulmonary Function Laboratory defines hypoxemia as a PaO2 <56 mm Hg or a %HbO2 <89%. Starting on March of 2024 the [facility] Pulmonary Function Laboratory utilizes race neutral GLI Global normative equations. Marce Bernal MD PFT ORDERABLES Final Result * SCAN - LABS (06/02/2024) Provider Scanning Edited Result - Final from Last 3 Months Insurance MEDICARE MEDICARE [employer] [place] MEDICARE [facility] [employer] MEDICARE Advance Directives For more information, please contact: [phone] * Full Code (Latest Code Status on File) Date Activated Date Inactivated Comments 07/17/2020 8:05 PM 07/19/2020 7:41 PM * Full Code Date Activated Date Inactivated Comments 06/08/2020 6:02 PM 06/15/2020 7:20 PM Healthcare Agents on File Name Relationship Healthcare Agent Relationship Communication Shyann Nielsen Spouse First Alternat e Health Care Agent Care Teams Processes Chemical Design Engineer Relationship Specialty Start Date End Date Scott Oneill MD PCP - General Internal Medicine 04/27/20
--- OUTSIDE RECORDS SUMMARY | 2024-08-24 13:11 | XMS_ITS | Encounter Summary ---
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
--- OUTSIDE RECORDS SUMMARY | 2024-08-24 13:11 | XMS_ITS | Encounter Summary ---
Author Organization [facility] Address [address] [place] [address] Phone Care Team Providers Care Felt Finisher Name Role Phone Scott Oneill MD Primary Care Provider Kev Prince DO Unavailable [phone] Tavo Mishra MD Unavailable [phone] Gilmer Barnard MD Unavailable [phone] Kev Moser MD Unavailable [phone] Encounter Details Date Type Department Care Team (Late st Contact Info) Description 12/31/2019 Telephone [facility] [address] [place] [address] Kev Moser MD [address] [place] [phone] Social History Tobacco Use Types Packs/Day [...] file Legal Sex Male 3:42 PM SOFTWARE TEST AND VALIDATION ENGINEER Gender Identity Not on file Sexual [...] CDT Lab [facility] [address] [phone] Lab, [facility] 09/01/2024 11:15 AM CDT Office Visit [facility] [address] [phone] Kev Moser MD [address] [place] [phone] 09/01/2024 11:30 AM CDT Clinical Support [facility] [address] [phone] Nurse, [facility] documented as of this encounter Visit Diagnoses Not on filedocumented in this encounter Additional Health Concerns Assessment Noted Time PHQ-9 Depression Total Score: 0 10/04/19 20 2:45 PM CDT documented as of this encounter Care Teams Felt Finisher Relationship Specialty Start Date End Date Scott Oneill MD PCP - General Internal Medicine 04/29/17 Kev Prince DO Gastroenterology 04/29/17 12/09/22 Tavo Mishra MD [address] [place] [address] Internal Medicine 04/29/17 Gilmer Barnard MD [address] [place] [address] Consulting Physician Internal Medicine 08/28/17 4 Kev Moser MD [address] [place] [phone] Consulting Physician Oncology 02/09/20 documented as of this encounter
[2024-08-24 15:45] LABS: Creatinine Urine 131.7 mg/dL; Total Protein Urine Random 7 mg/dL; Ur Ttl Prot Creatinine Ratio 0.05 mg/mg (0-0.20)
[2024-08-26 03:14] LABS: Myeloperoxidase Ab <1.0 AI
== END 2024-08-24 11:27 | disposition home or self-care (01) ==
PROVIDERS: PCP Internal Medicine; Visit Provider Internal Medicine
DX: R70.0 Elevated erythrocyte sedimentation rate (principal); J84.9 Interstitial pulmonary disease, unspecified; Z79.899 Other long term (current) drug therapy
CPT/HCPCS: 36415; 81003; 82570; 84156; 85652; 86036; 86140

== ENCOUNTER 2024-08-24 11:29 | Outpatient (RCR) | payer MEDICARE, OTHER, SELFPAY ==
[2024-08-24 12:17] LABS: Hematocrit 35.3 % (42.0-52.0); Hemoglobin 11.2 g/dL (14.0-18.0); Immature Granulocyte Percent A 0.8 % (0-0.5); Lymphocytes Absolute Auto 0.58 K/mm3 (0.9-3.2); Mean Corpuscular HGB Conc 31.7 g/dl (32-36); Mean Corpuscular Hemoglobin 28.4 pg (26-34); Mean Corpuscular Volume 89.6 fl (80-100); Nucleated Red Blood Cells Absolute Auto 0.000 K/mm3 (0.0-0.012); Nucleated Red Blood Cells Perc 0.0 % (0.0-0.2); Platelet Count Result 131 k/mm3 (150-375); Red Blood Count 3.94 M/mm3 (4.6-6.20); White Blood Count 6.1 K/mm3 (4.5-10.0)
== END 2024-11-22 23:59 | disposition home or self-care (01) ==
LOC: ANHLAB 11:29
PROVIDERS: PCP Internal Medicine; Visit Provider Internal Medicine
DX: Z51.81 Encounter for therapeutic drug level monitoring (principal); Z79.899 Other long term (current) drug therapy
CPT/HCPCS: 36415; 81003; 82570; 84156; 85025; 85652; 86036; 86140

== ENCOUNTER 2024-09-01 14:04 | Outpatient (CLI) | payer MEDICARE, OTHER, SELFPAY ==
--- OUTSIDE RECORDS SUMMARY | 2024-09-01 14:16 | XMS_ITS | Encounter Summary ---
Author Organization [facility] Address [address] [place] [address] Phone Care Team Providers Care Acid Plant Helper Name Role Phone Scott Oneill MD Primary Care Provider [phone] Tavo Mishra MD Unavailable [phone] Gilmer Barnard MD Unavailable [phone] Kev Moser MD Unavailable [phone] Reason for Visit * Reason Comments Medication Refill Encounter Details Date Type Department Care Team (Late st Contact Info) Description 07/01/2023 Refill [facility] [address] [place] [phone] Sindi Qiu, MANAGEMENT RETAIL INTERN, MAILHOUSE OPERATOR [address] [place] [address] Medication Refill Social History Tobacco [...] on file Legal Sex Male 3:42 PM TONE ARTIST APPRENTICE Gender Identity Not on file Sexual Orientation [...] Care Team (Late st Contact Info) Description 09/29/2024 11:00 AM CDT Lab [facility] [address] [address] Lab, [facility] 09/29/2024 11:15 AM CDT Clinical Support [facility] [address] [address] Nurse, [facility] 10/27/2024 11:05 AM CDT Lab [facility] [address] [address] Lab, [facility] 10/27/2024 11:15 AM CDT Office Visit [facility] [address] [address] Michael Austin MD [address] [place] [address] 10/27/2024 11:30 AM CDT Clinical Support [facility] [address] [address] Nurse, [facility] documented as of this encounter Visit Diagnoses Not on filedocumented in this encounter Additional Health Concerns Assessment Noted Time PHQ-9 Depression Total Score: 0 11/25/19 21 11:34 AM CDT documented as of this encounter Care Teams Acid Plant Helper Relationship Specialty Start Date End Date Scott Oneill MD PCP - General Internal Medicine 04/29/17 Tavo Mishra MD [address] [facility] [address] [place] [phone] Internal Medicine 04/29/17 Gilmer Barnard MD [address] [phone] Consulting Physician Internal Medicine 08/28/17 4 Kev Moser MD [address] [place] [phone] Consulting Physician Oncology 02/09/20 documented as of this encounter
--- OUTSIDE RECORDS SUMMARY | 2024-09-01 14:16 | XMS_ITS | Data Portability ---
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 Plan of Treatment Reminders Order Date Submit Date Provider Last Modified By Organization Details Last Modified Time Details Appointments Any 15 2024 01:45P M Leann Oneill MD Not available Not available Not available Lab testoster one, free + total, serum 2024 025 [email or web address] 2 [facility], [address] [place] [address], [id number], 05/06/2024 08:40:30 PSA, serum or plasma 2023 024 [email or web address] [facility], [address] [place] [address], [id number], 12/17/2023 07:51:57 lipid panel, serum 2023 024 [email or web address] [facility], [address] [place] [address], [id number], 12/17/2023 07:51:56 Referral None recorded. Procedures None recorded. Surgeries None recorded. Imaging None recorded. Medication Orders tadalafil 20 mg tablet 2024 025 [facility], [address] [facility] [place], [address], 04/08/2024 09:47:11 Patient TargetsNo targets recorded. Patient Instructions Encounter Date Encounter Id Patient Instructions Last Modified By Organization Details Last Modified Time 08/05/2023 [id number] [email or web address] Not available 08/05/2023 12:11:17 12/10/2023 [id number] dementia rating scale-2* Not available 12/10/2023 17:40:46 alcohol misuse* Not available 12/10/2023 17:40:46 depression screening* Not available 12/10/2023 17:40:47 Timed Up and Go test (TUG)* Not available 12/10/2023 17:40:46 multi-dimensiona l health assessment questionnaire* Not available 12/10/2023 17:40:47 advance care planning: care instructions [email or web address] Not available 12/10/2023 17:40:46 advance directiv es: care instructions [email or web address] Not available 12/10/2023 17:40:47 [place] Advance Directives [email or web address] Not available 12/10/2023 17:40:47 [...] current treatment plan I have no recommendations. [email or web address] Not available 12/10/2023 15:25:38 04/08/2024 [id number] Not available 04/08/2024 09:48:43 08/09/2024 [id number] [email or web address] Not available 08/09/2024 10:45:50 Reason for [...] Organization Details Recorded Time Polyp of colon 79192886 Active 2022 Leann Oneill MD [address], [address], [place], [address] , [employer] 3 12:56:21 Acute sinusiti s 13059548 Active 2022 Libra Blas LPN null, [employer] [facility] 3 17:08:12 Melena 6899825 Active 2022 Leann Oneill MD [address], [address], [place], [address] , [employer] [facility] 3 14:26:40 Blood in urine 76537859 Active 2022 Leann Oneill MD [address], [address], [place], [address] , [employer] 3 14:27:23 Intersti tial lung disease 873866461 Active 2022 Leann Oneill MD [address], [address], [place], [address] , [place] [facility] 3 14:32:34 Mass of subcutan eous tissue of toe of left foot 47633474019 176497 Active 2023 He Mccormick DPM [address], [facility] [address], [place], [address] , [facility] 4 11:19:16 History of malignan t neoplasm of skin 117127688 Active 2023 He Mccormick DPM [address], [facility] [address], [place], [address] , [facility] 4 11:19:52 Vasculit is 96599806 Active 2023 Leann Oneill MD [address], [place] [address], [place], [address] , [facility] [email or web address] [facility] 4 12:34:40 Sinusiti s 40853179 Active 2023 Rosa Walter MA null, [facility] 4 11:15:03 Deep venous thrombos is 808526788 Active 2020 Sarah groves RMA null, [facility] 3 12:27:50 Abnormal testoste lizzy 773163369 Active could not afford medicine Sarah gorves RMA null, [facility] 3 12:27:32 Testoste lizzy level below referenc e range 203969606 Completed 202112/06/2022 Sarah groves RMA null, [facility] 3 12:28:40 External hordeolu m 6261072 Active Not Available [facility] 3 04:52:03 Hearing loss 22819235 Active 2021 Sarah groves RMA null, [facility] 3 12:27:57 Acute sinusiti s 49089904 Completed 202112/06/2022 Libra Blas LPN null, [place] [facility] 3 17:08:12 Backache 769800688 Completed 202012/06/2022 Sarah groves RMA null, [place] [facility] 3 12:27:28 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 Not Available [facility] 3 04:52:03 Osteoart hritis of knee 809046113 Active Not Available [facility] 3 04:52:03 Edema 760664723 Completed 202012/06/2022 DEVEN Torres null, [facility] 3 12:27:45 Anemia 906207011 Active 2019 Not Available [facility] 3 04:52:03 Eruption 139545193 Completed Not Available [facility] 3 04:52:04 Low back pain 839107004 Completed Not Available [facility] 3 04:52:04 Chest pain 15845477 Completed 202012/06/2022 Sarah groves RMA null, [facility] 3 12:27:25 Otitis externa 4789934 Completed Not Available [facility] 3 04:52:04 Malignan t neoplasm of skin 142908159 Active on lip, no recurren ce, dr whelan Not Available [facility] 3 04:52:04 Neuropat hy 062034867 Active Sarah groves RMA null, [place] [facility] 3 12:28:38 Osteoart hritis 810003374 Completed 12/06/2022 Sarah groves RMA null, [place] [facility] 3 12:28:43 Obesity 123843262 Active Not Available [facility] 3 04:52:04 Cough 20711647 Completed 202112/06/2022 Sarah groves RMA null, [place] [facility] 3 12:27:23 Ulcer of duodenum 61889057 Active 2020 Not Available [facility] 3 04:52:05 Acute upper respirat ory infectio n 88792480 Completed 202112/06/2022 Sarah groves RMA null, [place] [facility] 3 12:27:19 Hyperlip idemia 17988781 Active Not Available [facility] 3 04:52:05 [facility] hyperten mara 52327891 Active Not Available [facility] 3 04:52:05 Otitis media 60413585 Completed Not Available [facility] 3 04:52:05 Sleep apnea 17908111 Active cpap Not Available [facility] 3 04:52:05 Ex-smoke r 3086622 Active quit 2010 Sarah groves RMA null, [place] [facility] 3 12:27:44 Erectile dysfunct ion 969756653 Active 2021 Sarah groves RMA null, [place] [facility] 3 12:27:37 Kidney disease 02887213 Active 2020 Sarah groves RMA null, [place] [facility] 3 12:27:52 Notes:Medical History: Bilat eral [...] 2020 Colonoscopy with polypectomy 2021 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 Procedures Surgical History Date Name Laterality Status Provider Name and Address Organization Details Recorded Time 4 Medicare Wellness CPT Code, subsequent completed Debbie Sepulveda RN [facility] 12/10/2023 12:53:31 4 Advanced Care Planning completed Debbie Sepulveda RN [facility] 12/10/2023 14:58:54 3 Medicare Wellness CPT Code, subsequent completed Umm Regan RN [facility] 12/06/2022 12:58:58 other completed Not Available [facility] 03/2022 04:43:13 Imaging Results None recorded. Procedure [...] e 50 mcg/actua tion nasal spray,michelle pension [place] 2 sprays every day by intranas al [...] Address Organization Details Last Updated DateTime 5 128946. 61 g 97.4 [degF] 94 % 94 % 88 /min 138 mm[Hg] 62 mm[Hg] Marga hamilton [employer] 5 09:18:42 Date Recorded Body height Body mass index (BMI) Body weight Heart rate Respiratory rate Oxygen saturation Oxygen saturation in Arterial blood by Pulse oximetry Provider Name and Address Organization Details Last Updated DateTime 4 165.1 cm 37.8 kg/m2 531961. 47 g 87 /min 14 /min 98 % 98 % Wen Frank [employer] [facility] 4 09:57:22 Date Recorded Body height Body mass index (BMI) Body weight Body temperature Heart rate Oxygen saturation Oxygen saturation in Arterial blood by Pulse oximetry Systolic blood pressure Diastolic blood pressure Provider Name and Address Organization Details Last Updated DateTime 4 165.1 cm 38.9 kg/m2 965623. 61 g 97.9 [degF] 86 /min 98 % 98 % 140 mm[Hg] 82 mm[Hg] Janey Ulrich CMA [employer] 4 12:11:24 Date Recorded Body height Body mass index (BMI) Body weight Body temperature Heart rate Oxygen saturation Oxygen saturation in Arterial blood by Pulse oximetry Systolic blood pressure Diastolic blood pressure Provider Name and Address Organization Details Last Updated DateTime 5 165.1 cm 39.3 kg/m2 697164. 8 g 97.3 [degF] 69 /min 97 % 97 % 128 mm[Hg] 67 mm[Hg] Marga hamilton [facility] [email or web address] [facility] 5 10:55:46 Date Recorded Body height Body mass index (BMI) Body weight Body temperature Heart rate Oxygen saturation Oxygen saturation in Arterial blood by Pulse oximetry Systolic blood pressure Diastolic blood pressure Provider Name and Address Organization Details Last Updated DateTime 4 165.1 cm 39.1 kg/m2 565125. 21 g 97.7 [degF] 73 /min 96 % 96 % 140 mm[Hg] 60 mm[Hg] Sarah mendoza Yg [facility] [employer] [facility] 4 11:56:23 Social History Question Answer Notes LastModified by Organization Details LastModified Time Tobacco Smoking Status Former Smoker Quit in 2003 Debbie Sepulveda RN [facility], [facility] [employer] [facility] 12/10/2023 12:57:32 Do You Have An Advance Directive? No Paperwork Given 12/10/2023 [email or web address] Information not available 12/10/2023 Are You Blind Or Do You Have Difficulty Seeing? No MIGRATION.0301 [id number] Information not available 05/29/2022 Is Blood Transfusion Acceptable In An Emergency? Yes [email or web address] Information not available 12/10/2023 What Is Your Level Of Caffeine Consumption? Occasional MIGRATION.0301 613497 Information not available 05/29/2022 How Much Tobacco Do You Chew? None MIGRATION.0301 635474 Information not available 05/29/2022 In The 14 Days Before Symptom Onset, Have You Had Close Contact With A Laboratory-conf irmed COVID-19 While That Case Was Ill? No Not Applicable [email or web address] Information not available 12/10/2023 In The 14 Days Before Symptom Onset, Have You Had Close Contact With A Person Who Is Under Investigation For COVID-19 While That Person Was Ill? No Not Applicable [email or web address] Information not available 12/10/2023 Are You Deaf Or Do You Have Serious Difficulty Hearing? Yes Bilateral Hearing Aids [email or web address] Information not available 12/10/2023 What Type Of Diet Are You Following? REGULAR MIGRATION.0301 753802 Information not available 05/29/2022 Which Illicit Or Recreational Drugs Have You Used? None MIGRATION.030 468105 Information not available 05/29/2022 What Is The Highest Grade Or Level Of School You Have Completed Or The Highest Degree You Have Received? [id number] [email or web address] Information not available 12/10/2023 Do You Have An Electrostatic Air Filter? Yes MIGRATION.030 129013 Information not available 05/29/2022 How Many Days Of Moderate To Strenuous Exercise, Like A Brisk Walk, Did You Do In The Last 7 Days? 0 [email or web address] Information not available 12/10/2023 Have There Been Any Changes To Your Family Or Social Situation? No MIGRATION.030 622890 Information not available 05/29/2022 What Is The Fluoride Status Of Your Home? Fluoridated MIGRATION.030 629317 Information not available 05/29/2022 When Did You Quit Smoking? 16+yearssincelastc igarette [email or web address] Information not available 12/10/2023 Are There Any Guns Present In Your Home? Yes MIGRATION.030 572619 Information not available 05/29/2022 Do You Have A Humidifier? No On The Cpap Machine MIGRATION.030 224096 Information not available 05/29/2022 Do You Use Insect Repellent Routinely? No [email or web address] Information not available 12/10/2023 [facility] MIGRATION.030 094352 Information not available 05/29/2022 Presence Of Domestic Violence No [email or web address] Information not available 12/06/2022 Are You Able To Care For Yourself? Yes [email or web address] Information not available 12/06/2022 Are You Blind Or Do Yo Have Difficulty Seeing? No [email or web address] Information not available 12/06/2022 Are You Deaf Or Do You Have Serious Difficulty Hearing? No [email or web address] Information not available 12/06/2022 General Stress Level? Moderate [email or web address] Information not available 12/10/2023 Live Alone Of With Others? With Others [email or web address] Information not available 12/06/2022 Do You Have A Medical Power Of Program Director Scouting? No [email or web address] Information not available 12/10/2023 Do You Have Moisture Problems In Your Home? No MIGRATION.0301 851222 Information not available 05/29/2022 What Was The Date Of Your Most Recent Tobacco Screening? 12/10/2023 [email or web address] Information not available 12/10/2023 How Many Children Do You Have? 4 [email or web address] Information not available 12/10/2023 What Is Your Current Pack Years? 30ormorepackyears [email or web address] Information not available 12/10/2023 Do You Have Any Pets? Yes MIGRATION.0301 408774 Information not available 05/29/2022 Do You Use Protection During Sex? No [email or web address] Information not available 12/10/2023 What Is Your Relationship Status? [email or web address] Information not available 12/10/2023 Do You Use Your Seat Belt Or Car Seat Routinely? Yes MIGRATION.0301 046626 Information not available 05/29/2022 Are You Sexually Active? Yes [email or web address] Information not available 12/10/2023 Do You Have Smoke And Carbon Monoxide Detectors In Your Home? Yes MIGRATION.0301 674860 Information not available 05/29/2022 At What Age Did You Start Smoking Tobacco? 18 MIGRATION.0301 567729 Information not available 05/29/2022 Are You Passively Exposed To Smoke? No MIGRATION.0301 046188 Information not available 05/29/2022 Are There Any Smokers In Your House? No MIGRATION.0301 475488 Information not available 05/29/2022 How Much Tobacco Do You Smoke? 1 PPD MIGRATION.0301 511701 Information not available 05/29/2022 What Types Of Sporting Activities Do You Participate In? None [email or web address] Information not available 12/10/2023 Do You Use Sunscreen Routinely? No MIGRATION.0301 905238 Information not available 05/29/2022 Has Tobacco Cessation Counseling Been Provided? No [email or web address] Information not available 12/10/2023 How Many Years Have You Smoked Tobacco? 30 [email or web address] Information not available 12/10/2023 Have You Recently Traveled Abroad? No MIGRATION.0301 218366 Information not available 05/29/2022 Do You Have Difficulty Walking Or Climbing Stairs? No MIGRATION.0301 127887 Information not available 05/29/2022 Do You Have Any Dietary Restrictions? No MIGRATION.0301 217152 Information not available 05/29/2022 Sex: Male Functional Status Question Answer Note LastModified by Organizat ion Details LastModified Time Do you use any illicit or recreational drugs? No MIGRATION.517702 2095 Information not available 05/29/2022 Do you or have you ever used any other forms of tobacco or nicotine? No MIGRATION.871393 9471 Information not available 05/29/2022 What is your level of alcohol consumption? None [email or web address] Information not available 12/10/2023 Are you currently employed? No [email or web address] Information not available 12/10/2023 Do you have transportation difficulties? No MIGRATION.364258 4393 Information not available 05/29/2022 Are you able to walk? YESWOREST MIGRATION.491910 8085 Information not available 05/29/2022 Do you have difficulty doing errands alone? No MIGRATION.711258 4305 Information not available 05/29/2022 Are you able to care for yourself? Yes MIGRATION.767229 9202 Information not available 05/29/2022 What is your occupation? 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 No MIGRATION.853502 1866 Information not available 05/29/2022 What is your exercise level? None MIGRATION.257351 0301 Information not available 05/29/2022 Mental Status Question Answer Note LastModified by [employer] Details LastModified Time Do you feel stressed (tense, restless, nervous, or anxious, or unable to sleep at night)? [id number] [email or web address] Information not available 12/10/2023 Do you have difficulty concentrating, remembering or making decisions? No MIGRATION.25631144 26 Information not available 05/29/2022 Family History Relationship Description Onset Age of this Age Resolved Age Notes LastModified by Organization Details LastModified Time Father Essential hypertension MIGRATION.518 [id number] Not available 05/29/2022 04:43:16 Sister Diabetes mellitus MIGRATION.188 4570096 Not available 05/29/2022 04:43:16 Brother Small cell carcinoma of lung 59 MIGRATION.534 5937179 Not available 05/29/2022 04:43:16 Medical History Condition Response HYPERTENSION Y HIGH CHOLESTEROL / HYPERLIPIDEMIA Y Immunizations Vaccine Type Date Status Note Provider Nam e and Address Organization Details Recorded Time COVID-19, mRNA, LNP-S, PF, 100 mcg/0.5mL dose or 50 mcg/0.25mL dose 1 completed Not Available [facility] 05/29/2022 05:05:37 COVID-19, mRNA, LNP-S, PF, 100 mcg/0.5mL dose or 50 mcg/0.25mL dose 1 completed Not Available [facility] 05/29/2022 05:05:38 Influenza, split virus, quadrivalent, preservative 1 completed Not Available [facility] 05/29/2022 05:05:38 Influenza, split virus, quadrivalent, PF 9 completed Not Available [facility] 05/29/2022 05:05:38 Influenza, high-dose, trivalent, PF 8 completed Not Available [facility] 05/29/2022 05:05:38 Influenza, split virus, trivalent, PF 4 completed Not Available [facility] 05/29/2022 05:05:38 Past Encounters Encounter ID Performer Location Encounter Start Date Encounter Closed Date Diagnosis/Indication Diagnosis SNOMED-CT Code Diagnosis ICD10 Code Diagnosis Note [id number] Leann Oneill MD [facility] Internal Med [address] [address] 07/25/2020 00:00:00 07/25/2020 10:30:24 [id number] Leann Oneill MD [facility] [address] [address] 11/21/2020 00:00:00 11/21/2020 11:24:02 [id number] Mert Whitt MD [facility] [address] 12/07/2020 00:00:00 12/07/2020 08:29:49 [id number] Mert Whitt MD [facility] [address] [address] 02/01/2021 00:00:00 02/01/2021 09:16:01 [id number] Leann Oneill MD [facility] [address] [place] [address] [place] [address] 03/07/2021 00:00:00 03/07/2021 11:59:20 [id number] Leann Oneill MD [facility] Internal Med [address] [place] [address] 07/06/2021 00:00:00 07/06/2021 13:14:02 [id number] Mert Whitt MD [facility] Pulmonolo gy [address] [place] [address] 02/05/2022 00:00:00 02/05/2022 11:31:08 [id number] Leann Oneill MD [facility] Internal [facility] [address] [facility] [place] [address] 12/06/2022 11:40:07 12/06/2022 13:05:12 Essential hypertension 67227739 I10 watch Hyperlipidemia 08358166 E78.5 labs Obesity 751825692 E66.9 advised to lose more Osteoarthr itis of knee 625189144 M17.9 otc Anemia 876295610 D64.9 stable Ex-smoker 6649771 Z87.89 1 Deep venou s thrombosis 959431405 I82.409 on MEDS FOR LIFE Abnormal testosterone 13 7163578 R94.7 Kidney disease 05263474 N08 seeing nephrology Sleep apnea 72755309 G47 .33 cpap Neuropathy 222521950 G62 .9 start pregabalin Adult heal th examination 640510575 Z00.00 repeat colonoscop y, scheduled soon due to polyppsa- 02/17FLU- 1COV ID Vacc- Has had all 3 vacc Screening for malignant neoplasm of prostate 341403492 Z12.5 Polyp of colon 67326927 K63.5 gets colonoscop y every year Screening for disorder 048133444 Z13.9 [id number] Leann Oneill MD S[facility] Internal Med [address] [place] [address] 02/17/2023 14:01:56 02/17/2023 14:36:53 Melena 8747214 K92.1 improved Blood in urine 23790706 R31.9 to get cysto Kidney disease 28483264 N08 seen nephrology , cr now baseline Interstiti al lung disease 854581209 J84.9 he has appt to f/u with pulm, no symptoms [id number] Leann Oneill MD [facility] [address] [place] [address] 04/08/2023 11:53:16 04/08/2023 12:38:50 Essential hypertension 72632122 I10 under control Hyperlipidemia 42789730 E78.5 will get labs reports Obesity 392316207 E66.9 advised to lose Osteoarthr itis of knee 544229087 M17.9 otc Anemia 295726607 D64.9 stable Ex-smoker 3342201 Z87.89 1 Deep venou s thrombosis 136124673 I82.409 on MEDS FOR LIFE Abnormal testosterone 13 2092470 R94.7 get labs reports Kidney disease 99464589 N08 seeing nephrology Sleep apnea 52454622 G47 .33 cpap Neuropathy 519194544 G62 .9 pregabalin helps Adult heal th examination 392521470 Z00.00 repeat colonoscop y, scheduled soon due to polyppsa- OV ID Vacc- Has had all 3 vacc Polyp of colon 91824499 K63.5 gets colonoscop y every year [id number] He Mccormick DPM [facility] [address] [facility] [address] [place] [address] 05/27/2023 09:54:02 05/27/2023 16:57:06 Mass of subcutaneous tissue of toe of left foot 8071249737 0145469 R22.42 left great toefollow up with pcp or oncologyre fused surgery where I have privileges recommend immediate follow up History of malignant neoplasm of skin 697882645 Z85.828 squamous cell on lip [id number] Leann Oneill MD [facility] [address] [place] [address] 08/05/2023 12:06:26 08/05/2023 12:39:57 Essential hypertension 28486663 I10 under control Hyperlipidemia 73546380 E78.5 under control Obesity 626930565 E66.9 advised to lose Osteoarthr itis of knee 678377580 M17.9 otc Anemia 006569837 D64.9 stable Ex-smoker 5359385 Z87.89 1 Deep venou s thrombosis 237888259 I82.409 meds for life Abnormal testosterone 13 3588083 R94.7 get labs reports Kidney disease 27603738 N08 seeing nephrology Sleep apnea 25709294 G47 .33 cpap Neuropathy 487588600 G62 .9 pregabalin helps Adult heal th examination 114587848 Z00.00 repeat colonoscop y, scheduled soon due to polyppsa- 1COV ID Vacc- Has had all 3 vacc Polyp of colon 14106989 K63.5 gets colonoscop y Interstiti al lung disease 109108429 J84.9 autoimmune , on meds, seeing pulm at [facility] 83955315 I77. 6 on cytoxan [id number] Leann Oneill MD [facility] [address] [place] [address] 12/10/2023 11:50:33 12/10/2023 13:11:37 Essential hypertension 73102019 I10 watch Hyperlipidemia 89784692 E78.5 under control Obesity 985457633 E66.9 advised to lose Osteoarthr itis of knee 416450132 M17.9 otc Anemia 912307656 D64.9 stable Ex-smoker 6071035 Z87.89 1 Deep venou s thrombosis 239223236 I82.409 meds for life, Eliquis Abnormal testosterone 13 8372747 R94.7 Kidney disease 53907144 N08 seeing nephrology Sleep apnea 02188145 G47 .33 cpap Neuropathy 453643733 G62 .9 pregabalin helps some Adult heal th examination 088494227 Z00.00 repeat colonoscop y,PSA- 1COV ID Vacc- Has had all 3 vacc Polyp of colon 38337580 K63.5 needs colonoscop y , not sure when Interstiti al lung disease 064439966 J84.9 autoimmune , on meds, seeing pulm at [facility] 43439987 I77. 6 on cytoxan Screening for malignant neoplasm of prostate 661075588 Z12.5 Screening for disorder 999291666 Z13.9 [id number] Leann Oneill MD [facility] Internal [address] [place] [address] 04/08/2024 09:06:19 04/08/2024 09:55:47 Essential hypertension 93838455 I10 under control Hyperlipidemia 07757769 E78.5 under control Obesity 676819006 E66.9 advised to lose Osteoarthr itis of knee 689813581 M17.9 otc Anemia 275024906 D64.9 stable Ex-smoker 1686144 Z87.89 1 Deep venou s thrombosis 484360574 I82.409 meds for life, Eliquis Abnormal testosterone 13 7212728 R94.7 Kidney disease 05011977 N08 seeing nephrology Sleep apnea 64391758 G47 .33 cpap Neuropathy 684308555 G62 .9 pregabalin helps Adult heal th examination 563409703 Z00.00 colonoscop y 2022 per [facility]- 2022FLU- 4COV ID Vacc- Has had all 3 vacc Polyp of colon 48454209 K63.5 needs colonoscop y , Interstiti al lung disease 664051336 J84.9 autoimmune , on meds, seeing pulm at [facility] 50016841 I77. 6 on cytoxan Erectile dysfunction 860 408586 F52.21 [id number] Leann Oneill MD [facility] Internal Med [address] [facility] [place] [address] 08/09/2024 10:42:50 08/09/2024 11:27:10 Essential hypertension 67020751 I10 under control Hyperlipidemia 73361360 E78.5 under control, labs 12/22 Obesity 846182755 E66.9 advised to lose Osteoarthr itis of knee 383578543 M17.9 otc Anemia 432817737 D64.9 stable Ex-smoker 4030027 Z87.89 1 Deep venou s thrombosis 444442944 I82.409 meds for life, Eliquis Abnormal testosterone 13 4805136 R94.7 Kidney disease 46744792 N08 seeing nephrology Sleep apnea 61111307 G47 .33 cpap Neuropathy 407041953 G62 .9 getting worse, will get benefit form electric wheel chairsee the comments in [facility] Adult heal th examination 965304120 Z00.00 colonoscop y 2022 per [facility]- 12/10/2023 FLU- OV ID Vacc- Has had all 3 vacc Polyp of colon 27977593 K63.5 needs colonoscop y , Interstiti al lung disease 316080839 J84.9 autoimmune , on meds, seeing pulm at [facility] 85435844 I77. 6 on cytoxan Erectile dysfunction 860 607929 F52.21 on meds Health Concerns Section Related Observation LastModified by Organization Detai ls LastModified Time None Recorded Concern Status LastModified by Organization Details LastModified Time None Recorded Advance Directives Directive N: paperwork given 12/10/2023 Payers Encounter Date Sequence Insurance Name Policy Number Policy Virk Covered Member ID Virk Member ID Guarantor Name 05/27/2023 1 [place] Britton R [place] Sr [id number] Britton R [place] 05/27/2023 2 [employer] [place] (MEDICARE SUPPLEMENT) Britton R [place] [id number] Britton R [place] 08/05/2023 1 [place] Britton R [place] Sr [id number] Britton R [place] 08/05/2023 2 [employer] [place] (MEDICARE SUPPLE[place]) Britton R [place] [id number] Britton R [place] 12/10/2023 1 [place] R [place] Sr [id number] Britton R [place] 12/10/2023 2 [employer] [place] (MEDICARE SUPPLE[place]) Britton R [place] [id number] Britton R [place] 04/08/2024 1 [place] R [place] Sr [id number] Britton R [place] 04/08/2024 2 [employer] [place] (MEDICARE SUPPLE[place]) Britton R [place] [id number] Britton R [place] 08/09/2024 1 [place] Britton R [place] Sr [id number] Britton R [place] 08/09/2024 2 [employer] [place] (MEDICARE SUPPLEMENT) Britton R [place] [id number] Britton Nielsen Notes Date Note Type Note Provider Name [...] Patient denies any other complaints. He Mccormick, DPEden [address] [facility], [facility] [address], [place], [address], [facility] [employer] 05/27/2023 13:49:37 08/05/2023 text/html Here today for [...] started on meds Leann Oneill MD [address] [facility], [facility] [address], [place], [address], [place] [facility] [employer] 08/05/2023 12:38:15 12/10/2023 text/html Here today for [...] mild arthritis Leann Oneill MD [address], [address], [place], [address], [place] [employer] 12/10/2023 17:41:09 04/08/2024 text/html Here today for [...] mild arthritis Leann Oneill MD [address], [address], [place], [address], [place] [facility] 04/08/2024 09:49:23 08/09/2024 text/html Here today for routine 4 month f/u, Last Friday he was diagnosed with e-coli UTI and on antibiotic three times a days and has finished the medication. * would like a electric chair..Help for seniors will help pay for it for him Its getting harder for him to walk much due to neuropathy.When he goes to [facility] to see his specialist, its very [...] mild arthritis Leann Oneill MD [address], [facility] [address], [place], [address], [place] - [facility] 08/09/2024 11:21:40
--- OUTSIDE RECORDS SUMMARY | 2024-09-01 14:16 | XMS_ITS | Encounter Summary ---
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
--- OUTSIDE RECORDS SUMMARY | 2024-09-01 14:16 | XMS_ITS | Encounter Summary ---
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
--- OUTSIDE RECORDS SUMMARY | 2024-09-01 14:16 | XMS_ITS | Encounter Summary ---
Author Organization [facility] Address [address] [place] [address] Phone Care Team Providers Care Pre Coder Name Role Phone Scott Oneill MD Primary Care Provider Tavo Mishra MD Unavailable [phone] Gilmer Barnard MD Unavailable [phone] Kev Moser MD Unavailable [phone] Reason for Visit * Reason Comments Medication Refill Encounter Details Date Type Department Care Team (Late st Contact Info) Description 08/26/2023 Refill [facility] [address] [address] Kev Moser MD [address] [place] [address] Medication Refill Social History Tobacco Use [...] on file 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 Gender Identity Not on file Sexual [...] CDT Lab [facility] [address] [address] Lab, [facility] 09/29/2024 11:15 AM CDT Clinical Support [facility] [address] [phone] [facility] 10/27/2024 11:05 AM CDT Lab [facility] [address] [address] Lab, [facility] 10/27/2024 11:15 AM CDT Office Visit [facility] [address] [phone] Michael Austin MD [address] [place] [address] 10/27/2024 11:30 AM CDT Clinical Support [facility] [address] [address] Nurse, [facility] documented as of this encounter Visit Diagnoses Not on filedocumented in this encounter Additional Health Concerns Assessment Noted Time PHQ-9 Depression Total Score: 0 11/25/19 21 11:34 AM CDT documented as of this encounter Care Teams Pre Coder Relationship Specialty Start Date End Date Scott Oneill MD PCP - General Internal Medicine 04/29/17 Tavo Mishra MD [address] [place] [id number] Internal Medicine 04/29/17 Gilmer Barnard MD [address] [id number] Consulting Physician Internal Medicine 08/28/17 4 Kev Moser MD [address] [place] [phone] Consulting Physician Oncology 02/09/20 documented as of this encounter
--- OUTSIDE RECORDS SUMMARY | 2024-09-01 14:16 | XMS_ITS | Encounter Summary ---
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
--- OUTSIDE RECORDS SUMMARY | 2024-09-01 14:16 | XMS_ITS | Encounter Summary ---
Author Organization [facility] Address [address] [place] [address] Phone Care Team Providers Care Cow Buyer Name Role Phone Scott Oneill MD Primary Care Provider Tavo Mishra MD Unavailable [phone] Gilmer Barnard MD Unavailable [phone] Kev Moser MD Unavailable Encounter Details Date Type Department Care Team (Late st Contact Info) Description 11/04/2023 Telephone [facility] [address] [place] [address] Kev Moser MD [address] [place] [address] Social History Tobacco Use Types Packs/Day [...] on file 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 Gender Identity Not on file Sexual Orientation Not on file documented as of this encounter Plan of Treatment Upcoming Encounters Date Type Department Care Team (Late st Contact Info) Description 09/29/2024 11:00 AM CDT Lab [facility] [address] [address] Lab, [facility] 09/29/2024 11:15 AM CDT Clinical Support [facility] [address] [address] Nurse, [facility] 10/27/2024 11:05 AM CDT Lab [facility] [address] [phone] Lab, [facility] 10/27/2024 11:15 AM CDT Office Visit [facility] [address] [address] Michael Austin MD [address] [place] [address] 10/27/2024 11:30 AM CDT Clinical Support [facility] [address] [address] Nurse, [facility] documented as of this encounter Visit Diagnoses Not on filedocumented in this encounter Additional Health Concerns Assessment Noted Time PHQ-9 Depression Total Score: 0 11/25/19 21 11:34 AM CDT documented as of this encounter Care Teams Cow Buyer Relationship Specialty Start Date End Date Scott Oneill MD PCP - General Internal Medicine 04/29/17 Tavo Mishra MD [address] [place] [address] [phone] Internal Medicine 04/29/17 Gilmer Barnard MD [address] [phone] Consulting Physician Internal Medicine 08/28/17 4 Kev Moser MD [address] [place] [address] Consulting Physician Oncology 02/09/20 documented as of this encounter
--- OUTSIDE RECORDS SUMMARY | 2024-09-01 14:16 | XMS_ITS | Encounter Summary ---
Author Organization [facility] Address [address] [place] [address] Phone Care Team Providers Care Aeronautics Teacher Name Role Phone Scott Oneill MD Primary Care Provider [phone] Tavo Mishra MD Unavailable [phone] Gilmer Barnard MD Unavailable [phone] Kev Moser MD Unavailable [phone] Reason for Visit * Reason Comments Medication Refill Encounter Details Date Type Department Care Team (Late st Contact Info) Description 07/27/2023 Refill [facility] [address] [address] Kev Moser MD [address] [place] [phone] Medication Refill Social History Tobacco Use [...] file 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 Gender Identity Not on file Sexual [...] CDT Lab [facility] [address] [phone] Lab, [facility] 09/29/2024 11:15 AM CDT Clinical Support [facility] [address] [phone] Nurse, [facility] 10/27/2024 11:05 AM CDT Lab [facility] [address] [phone] Lab, [facility] 10/27/2024 11:15 AM CDT Office Visit [facility] [address] [phone] Michael Austin MD [address] [place] [address] 10/27/2024 11:30 AM CDT Clinical Support [facility] [address] [phone] Nurse, [facility] documented as of this encounter Visit Diagnoses Not on filedocumented in this encounter Additional Health Concerns Assessment Noted Time PHQ-9 Depression Total Score: 0 11/25/19 21 11:34 AM CDT documented as of this encounter Care Teams Aeronautics Teacher Relationship Specialty Start Date End Date Scott Oneill MD PCP - General Internal Medicine 04/29/17 Tavo Mishra MD [address] [address] Internal Medicine 04/29/17 Gilmer Barnard MD [address] [place] [address] Consulting Physician Internal Medicine 08/28/17 4 Kev Moser MD [address] [place] [address] Consulting Physician Oncology 02/09/20 documented as of this encounter
--- OUTSIDE RECORDS SUMMARY | 2024-09-01 14:16 | XMS_ITS | Encounter Summary ---
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
--- OUTSIDE RECORDS SUMMARY | 2024-09-01 14:16 | XMS_ITS | Encounter Summary ---
Author Organization 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
--- OUTSIDE RECORDS SUMMARY | 2024-09-01 14:16 | XMS_ITS | Continuity of Care Document ---
Author Organization [facility] Address [address] [place] [address] Phone Care Team Providers Care Application Integrator Name Role Phone Renny Garcia Unavailable Unavailable Advance Directives Directive Yes / No Effective Date File Name No Information Encounters Encounter Description Practice Location Reason(s) For Visit Diagnoses Date Provider Providers Copied on Encounter [facility], [address], [place], [place], [id number], [place] tel:[phone] [facility] No Information Dec-0 6-200 1 [address] Edward. [address] , [address], [place], [address], [place]. tel:[phone] Family History Family Member Type Diagnosis Age At Onset No Information Payers Payer name Insurance type Covered libertarian ID Authoriza tion(s) [place] [id number] Social History Type Description Quantity Date Captured [...]
--- OUTSIDE RECORDS SUMMARY | 2024-09-01 14:16 | XMS_ITS | Clinical Summary ---
Author Organization [facility] [address] Address [address] [place] [address] Care Team Providers Care Lollypop Machine Operator Name Role Phone Scott Oneill MD Primary Care Provider [phone] Allergies No known active allergies Medications potassium [...] 6 (six) hours as needed 4 Active azithromycin (ZITHROMAX) 250 mg tablet [...] spasms (muscle pain) 20 tablet 5 Active mycophenolate mofetil (CELLCEPT) 500 mg tablet Take 1 tablet by mouth twice daily 60 tablet 5 Active hydroCHLOROthiaz jyoti (HYDRODIURIL) 25 mg tablet Take 1 tablet (25 mg total) by mouth daily 5 Active neomycin-polymyx in-HC (CORTISPORIN) otic solution INSTILL 4 DROPS INTO AFFECTED EAR(S) BY OTIC ROUTE 3 TIMES PER DAY Active Active Problems Problem Noted Date Diagnosed [...] Encounters Date Type Department Care Team Description 09/01/[address] [facility] Pulmonary [address] [place] [address] Advanced Medicine [facility] [place] [address] [place] [address] Margret Cobb CMA 08/27/[address] [facility] [address] [place] [address] [place] [address] [place] [address] ProviderRivera MD 08/27/[address] [facility] [address] [place] [address] [place] [address] [place] [address] Marce Bernal MD Test Results 08/10/[address] [place] [address] [place] [address] Margret Cobb CMA 08/06/[address] [facility] [address] [place] [address] [place] [address] [place] [address] Polly Paulino, [place] 08/05/2024 3:00 PM CDT Office Visit [facility] [address] [place] [address] Medicine [facility] [place] [address] [place] [address] Marce Bernal MD Interstitial lung disease (HCC) (Primary Dx); Stage 3b chronic kidney disease (HCC); BMI 35.0-35.9,adult; Microscopic polyangiitis (HCC) 08/05/2024 1:22 PM CDT - 08/05/2024 11:59 PM CDT Hospital Encounter 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 file Not on file [...] Comments TRANSTHORACIC ECHO (TTE) COMPLETE W DOPPLER/CF Routine 08/27/2024 1:12 PM CDT ERYTHROCYTE SEDIMENTATION RATE Routine 08/24/2024 Elevated sed rate High risk medication use Interstitial lung disease (HCC) CRP (ACUTE PHASE) Routine 08/24/2024 Elevated sed rate High risk medication use Interstitial lung disease (HCC) PULMONARY FUNCTION TEST (PFT) Routine 08/05/2024 2:05 PM CDT Microscopic polyangiitis (HCC) SCAN - LABS 06/02/2024 from Last 3 Months Results * Transthoracic Echo (TTE) Complete W Doppler/CF (08/27/2024 1:12 PM CDT) Anatomical Region Laterality Modality Ultrasound Historical Provider CV ECHO PROCEDURES Final Result * (ABNORMAL) Erythrocyte sedimentation rate (08/24/2024) SCRIBED ESR 24(A) 0 - 20 mm/hr EXTERNAL LAB Blood 08/24/2024 Tiffanie Weiss MD LAB BLOOD ORDERABLES Final Resul t Performing Organization Address City/[facility] Co de Phone Number EXTERNAL LAB * CRP (acute phase) (08/24/2024) SCRIBED CRP <0.5 <1.0 - <1.0 mg/L EXTERNAL LAB Blood 08/24/2024 Tiffanie Weiss MD LAB BLOOD ORDERABLES Final Resul t Performing Organization Address City/[facility] Co de Phone Number EXTERNAL LAB * Pulmonary Function Test - (08/05/2024 2:05 PM CDT) FVC PRE 2.56 L [facility] FVC %PRE PRED 77 % [facility] FEV1 PRE 2.25 L [facility] FEV1 %PRE PRED 88 % [facility] FEV1/FVC PRE 87.7 % [facility] Anatomical Region Laterality Modality PFT 08/05/2024 1:34 PM CDT Narrative 08/05/2024 6:28 PM CDT Table formatting from the original result was not included. [facility] Division of Pulmonary & Critical Care Medicine [address] [place] [address]; [place] [address] [facility]; [place] [id number]; [phone] Pulmonary Function Laboratory Pulmonary Stress Test Simple/Oxygen [...] Work [distance (m) x body wt (kg)]: 65175 kg.m (normal >60,000kg.m) Oxygen required to maintain SpO2 greater than 90% during six minutes of walkin L/M Comments: [id number] STOPPED DUE HIP AND LEG PAIN. Interpretation: [...] and %HbO2 is age dependent. However, the [facility] Pulmonary Function Laboratory defines hypoxemia as a PaO2 <56 mm Hg or a %HbO2 <89%. Starting on March of [address] [facility] Pulmonary Function Laboratory utilizes race neutral GLI Global normative equations. Marce Bernal MD PFT ORDERABLES Final Result * SCAN - LABS (06/02/2024) Provider Scanning Edited Result - Final from Last 3 Months Insurance MEDICARE [facility] MEDICARE [employer] [place] [employer] [place] [employer] Advance Directives For more information, please contact: [phone] * Full Code (Latest Code Status on File) Date Activated Date Inactivated Comments 07/17/2020 8:05 PM 07/19/2020 7:41 PM * Full Code Date Activated Date Inactivated Comments 06/08/2020 6:02 PM 06/15/2020 7:20 PM Healthcare Agents on File Name Relationship Healthcare Agent Relationship Communication Shyann Nielsen Spouse First Alternat e Health Care Agent Care Teams Lollypop Machine Operator Relationship Specialty Start Date End Date Scott Oneill MD PCP - General Internal Medicine 04/27/20
--- OUTSIDE RECORDS SUMMARY | 2024-09-01 14:16 | XMS_ITS | CONTINUITY OF CARE DOCUMENT ---
Author Name shabbir shea Address Unknown Organization [facility] Address [address] [place] [address] [address] [place] [address] Phone [phone] Care Team Providers Care Weight Guesser Name Role Phone Carla HAMMOND, Ny Franz Unavailable Scott Oneill MD Unavailable Scott Oneill MD Unavailable [phone] INSURANCE PROVIDERS Payer name Policy type / Coverage type [place] red green party ID UNITED [employer] Commercial insura [employer] [id number] [place] [id number]
--- OUTSIDE RECORDS SUMMARY | 2024-09-01 14:16 | XMS_ITS | Encounter Summary ---
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
--- OUTSIDE RECORDS SUMMARY | 2024-09-01 14:16 | XMS_ITS | Encounter Summary ---
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
--- OUTSIDE RECORDS SUMMARY | 2024-09-01 14:16 | XMS_ITS | Encounter Summary ---
Author Organization [facility] Address [address] [place] [id number] Phone Care Team Providers Care Scaling Machine Operator Name Role Phone Bia Oneill MD Primary Care Provider [phone] Reason for Visit * Reason Comments Med Refill Encounter Details Date Type Department Care Team (Late st Contact Info) Description 05/27/2021 Refill [facility] Nephrology and Hypertension [address] [facility], [address] [address] Gilmer Barnard MD [address] [facility], [address] [place] [address] Social History Tobacco Use Types Packs/Day Years [...] on file Legal Sex Male 10:04 AM [facility] Gender Identity Not on file Sexual Orientation Not on file documented as of this encounter Plan of Treatment Not on file documented as of this encounter Visit Diagnoses Not on filedocumented in this encounter Care Teams Scaling Machine Operator Relationship Specialty Start Date End Date Bia Oneill MD [address] [facility] [address] [place] [address] PCP - General Internal Medicine 07/16/18 documented as of this encounter
--- OUTSIDE RECORDS SUMMARY | 2024-09-01 14:16 | XMS_ITS | Clinical Summary ---
Author Organization [facility] Address [address] [address] Phone Care Team Providers Care Injection Molding Machine Offbearer Name Role Phone Sctot Oneill MD Primary Care Provider Tavo Mishra MD Unavailable [phone] Kev Moser MD Unavailable [phone] Allergies No known active allergies Medications Calcium [...] 2 times daily. Active ergocalciferol (VITAMIN D) 53552 UNIT Capsule Take 50,000 Units by mouth once a week. Active cyanocobalamin 1000 MCG Tablet Take 1 tablet by mouth daily 30 Tab 07/25/19 19 Active Additional Information Patient not taking.Reported on 09/01/2024 traMADol (ULTRAM) 50 MG Tablet 0 06/18/19 [...] 500 MG Tablet 1 tablet in AM A ctive cyclobenzaprine (FLEXERIL) 5 MG Tablet Take 5 [...] once daily 30 Tablet 07/13/19 25 Active NEOMYCIN-POLYMYXIN -HC, OTIC, 1 % Solution INSTILL 4 DROPS INTO AFFECTED EAR(S) BY OTIC ROUTE 3 TIMES PER DAY Active apixaban (ELIQUIS) 5 MG TabletIndications: History of Thromboembolic Disease Take 1 Tablet by mouth 2 times daily. Indications: History of Disease involving a Thrombosis or an Embolism 56 Tablet 09/02/19 25 Active apixaban (ELIQUIS) 5 MG TabletIndications: History of Thromboembolic Disease Take 1 Tablet by mouth 2 times daily. Indications: History of Disease involving a Thrombosis or an Embolism 56 Tablet 07/24/19 25 025 Discontinu ed(Reorder ) sulfamethoxazole-t rimethoprim DS (BACTRIM DS, SEPTRA DS) 800-160 MG TabletIndications: Urinary Tract Infection Take 1 Tablet by mouth 2 times daily for 3 days. Indications: Urinary Tract Infection 6 Tablet 08/07/19 25 025 Active Problems Patient Care Coordination No te Formatting of this note migh t be different from the original. 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 05/23/2017 Hypertension Encounters Date Type Department Care Team Description 09/01/2024 11:30 AM CDT Clinical Support [facility] [address] [phone] Nurse, Cc [place] Vitamin B 12 deficiency (Primary Dx) 09/01/2024 11:15 AM CDT Office Visit [facility] [address] [phone] Tanvi Tobar APRN, KEYANA Anemia in stage 3a chronic kidney disease (HCC) (Primary Dx); Iron deficiency anemia due to sideropenic dysphagia; Vitamin B 12 deficiency 09/01/2024 11:00 AM CDT Lab [facility] [address] [phone] Lab, Cc Of[place] Anemia in stage 3a chronic kidney disease (HCC); Other autoimmune hemolytic anemia; Vitamin B 12 deficiency; Iron deficiency anemia due to sideropenic dysphagia 09/01/2024 Travel 08/06/2024 Results Follow-Up [facility] [address] [phone] Tanvi Tobar APRN, KEYANA CULTURE, URINE 08/04/2024 11:30 AM CDT Clinical Support [facility] [address] [phone] Nurse, Cc [place] Vitamin B 12 deficiency (Primary Dx); Urinary tract infection without hematuria, site unspecified 08/04/2024 11:15 AM CDT Office Visit [facility] [address] [phone] Tanvi Tobar APRN, ELEVATOR CONSTRUCTOR HYDRAULIC Anemia in stage 3a chronic kidney disease (HCC) (Primary Dx); Anemia in stage 3b chronic kidney disease (HCC); Iron deficiency anemia due to sideropenic dysphagia; Vitamin B 12 deficiency; Other autoimmune hemolytic anemia; Urinary tract infection without hematuria, site unspecified 08/04/2024 11:10 AM CDT Lab [facility] [address] [phone] Lab, Gricelda Lopes Other autoimmune hemolytic anemia; Vitamin B 12 deficiency 08/04/2024 Travel 07/22/2024 3:15 PM CDT Clinical Support [facility] [address] [phone] Nurse, Cc Marianne Other autoimmune hemolytic anemia (Primary Dx) 07/22/2024 Travel 07/22/2024 Telephone [facility] [address] [phone] Kev Moser MD canopy call/Eliquis samples 07/12/2024 Results Follow-Up [facility] [address] [phone] Sindi Qiu APRN, ELEVATOR CONSTRUCTOR HYDRAULIC CMP (COMPREHENSIVE METABOLIC PANEL), COMPLETE BLOOD COUNT (CBC) WITH DIFF, ERYTHROCYTE SEDIMENTATION RATE (ESR) 07/12/2024 Refill [facility] [address] [phone] Tanvi Tobar APRN, ELEVATOR CONSTRUCTOR HYDRAULIC Medication Refill 07/07/2024 11:15 AM CDT Clinical Support [facility] [address] [phone] Nurse, Gricelda Lopes Stage 3a chronic kidney disease (HCC) (Primary Dx); Vitamin B 12 deficiency 07/07/2024 11:00 AM CDT Office Visit [facility] [address] [phone] Tanvi Tobar APRN, ELEVATOR CONSTRUCTOR HYDRAULIC Other autoimmune hemolytic anemia (Primary Dx); Vitamin B 12 deficiency 07/07/2024 10:45 AM CDT Lab [facility] [address] [phone] Lab, Cc Marianne Other autoimmune hemolytic anemia 07/07/2024 Travel 06/24/2024 9:00 AM CDT Clinical Support [facility] [address] [phone] Nurse, Cc Marianne Other autoimmune hemolytic anemia (HCC) (Primary Dx) 06/24/2024 Travel 06/23/2024 Telephone [facility] [address] [phone] Kev Moser MD Canopy Call / Eliquis 06/15/2024 Refill [facility] [address] [phone] Tanvi Tobar, SEMICONDUCTOR PACKAGES SEALER, ELEVATOR CONSTRUCTOR HYDRAULIC Medication Refill 06/09/2024 11:30 AM CDT Clinical Support [facility] [address] [phone] Nurse, Cc Marianne Vitamin B 12 deficiency (Primary Dx) 06/09/2024 11:15 AM CDT Office Visit [facility] [address] [phone] Sindi Qiu, SEMICONDUCTOR PACKAGES SEALER, ELEVATOR CONSTRUCTOR HYDRAULIC Other autoimmune hemolytic anemia (HCC) (Primary Dx) 06/09/2024 11:00 AM CDT Lab [facility] [address] [phone] Lab, Cc Marianne Other autoimmune hemolytic anemia (HCC); Stage 3a [...] on file 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 Gender Identity Not on file Sexual Orientation Not on file Last Filed Vital Signs Vital Sign Reading Time Taken Comments Blood Pressure 146/70 09/01/2024 10:57 AM CDT Pulse 61 09/01/2024 10:57 AM CDT Temperature 37 C (98.6 F) 09/01/2024 10:57 AM CDT Respiratory Rate 18 09/01/2024 10:5 7 AM CDT Oxygen Saturation 96% 09/01/2024 10: 57 AM CDT Inhaled Oxygen Concentration - - Weight 103.8 kg (228 lb 12.8 oz) 2024 10:57 AM CDT Height 165.1 cm (5' 5) 09/01/2024 10:5 7 AM CDT Body Mass Index 38.07 09/01/2024 10:57 AM CDT Plan of Treatment Upcoming Encounters Date Type Department Care Team (Late st Contact Info) Description 09/29/2024 11:00 AM CDT Lab [facility] [address] [phone] Lab, [facility] 09/29/2024 11:15 AM CDT Clinical Support [facility] [address] [phone] Nurse, [facility] 10/27/2024 11:05 AM CDT Lab [facility] [address] [phone] Lab, [facility] 10/27/2024 11:15 AM CDT Office Visit [facility] [address] [phone] Michael Austin MD [address] [place] [phone] 10/27/2024 11:30 AM CDT Clinical Support [facility] [address] [phone] Nurse, Cc [facility] Health Maintenance Due Date Last Done [...] COMPLETE BLOOD COUNT (CBC) WITH DIFF Routine 09/01/2024 10:45 AM CDT Anemia in stage 3a chronic kidney disease (HCC) Other autoimmune hemolytic anemia Vitamin B 12 deficiency Iron deficiency anemia due to sideropenic dysphagia CMP (COMPREHENSIVE METABOLIC PANEL) Routine 09/01/2024 10:45 AM CDT Anemia in stage 3a chronic kidney disease (HCC) Other autoimmune hemolytic anemia Vitamin B 12 deficiency Iron deficiency anemia due to sideropenic dysphagia IRON W/ IRON BINDING CAPACITY [place] Routine 09/01/2024 10:45 AM CDT Anemia in stage 3a chronic kidney disease (HCC) Other autoimmune hemolytic anemia Vitamin B 12 deficiency Iron deficiency anemia due to sideropenic dysphagia CULTURE, URINE Routine 08/04/2024 11:27 AM CDT [...] 10:47 AM CDT ANCA (VASCULITIS) [place], [place] [id number] Routine 07/07/2024 10:47 AM CDT CULTURE, URINE [...] 10:51 AM CDT ANCA (VASCULITIS) [place], [place] [id number] Routine 06/09/2024 10:51 AM CDT ERYTHROCYTE SEDIMENTATION [...] deficiency from Last 3 Months Results * IRON W/ IRON BINDING CAPACITY [place] (09/01/2024 10:45 AM CDT) Only the most recent of2 resultswithin the time period is included. IRON 66 50 - 212 ug/dL [facility] UIBC 204 155 - 355 ug/dL [facility] TIBC 270 261 - 478 ug/dl [facility] % Saturation 24 20 - 50 % [facility] 09/01/2024 10:4 5 AM CDT Narrative [facility] - 09/01/2024 11:50 AM CDT Release to patient->Immediate Tanvi Tobar APRN, ELEVATOR CONSTRUCTOR HYDRAULIC LAB SEND OUTS Final Result [facility] [place] [address], * (ABNORMAL) CMP (COMPREHENSIVE METABOLIC PANEL) (09/01/2024 10:45 AM CDT) Only the most recent of4 resultswithin the time period is included. Glucose 163(H) 70 - 105 mg/dL [facility] Blood Urea Nitrogen 42(H) 7 - 25 mg/dL [facility] Creatinine 2.5(H) 0.7 - 1.3 mg/dL [facility] Sodium 137 136 - 145 mEq/L [facility] Potassium 4.6 3.5 - 5.1 mEq/L [facility] Chloride 106 98 - 107 mEq/L [facility] Bicarbonate 20(L) 21 - 31 mEq/L [facility] Total Bilirubin 0.5 0.3 - 1.0 mg/dL [facility] Alk. Phosphatase 75 34 - 104 U/L [facility] Aspartate Aminotransferase 10(L) 13 - 39 U/L [facility] Alanine Aminotransferase 11 7 - 52 U/L [facility] Total Protein 6.0(L) 6.4 - 8.9 g/dL [facility] Albumin 4.2 3.5 - 5.7 g/dL [facility] Calcium 8.4(L) 8.6 - 10.3 mg/dL [facility] Anion Gap 15.6(H) 7.0 - 15.0 mEq/L [facility] Globulin 1.8(L) 2.0 - 3.5 g/dL [facility] EGFR 27(L) >60 ml/min/1. 73m2 [facility] Comment: This eGFR is calculated using 2020 CKD-EPI Creatinine equation without race modifier based on the NKF-ASN task force recommendations Equation: tZFO=649*min(SCr/k,1)a*max(SCr/k,1)-1.200*0.9938Age*1.012 (if female), where SCr is serum creatinine, k is 0.7 for females and 0.9 for males, and a is -0.241 for females and -0.302 for males Blood 09/01/2024 10:4 5 AM CDT Narrative [facility] - 09/01/2024 11:50 AM CDT Release to patient->Immediate IS THE PATIENT REQUIRED TO BE FASTING FOR 8 HOURS?->No us Tanvi Tobar SEMICONDUCTOR PACKAGES SEALER, ELEVATOR CONSTRUCTOR HYDRAULIC CHEMISTRY ORDERABLES Final Result [facility] PR[facility] T[facility] [place] [address], * (ABNORMAL) COMPLETE BLOOD COUNT (CBC) WITH DIFF (09/01/2024 10:45 AM CDT) Only the most recent of4 resultswithin the time period is included. WBC 5.7 4.0 - 10.0 10*3/uL [facility] HGB 11.0(L) 13.7 - 17.5 g/dL [facility] HCT 35.2(L) 40.1 - 51.0 % [facility] PLT 149(L) 163 - 369 10*3/uL [facility] MPV 9.7 9.4 - 12.4 fL [facility] PR[facility] T[facility] RBC 3.86(L) 4.63 - 6.08 10*6/uL [facility] MCV 91 79 - 95 fL [facility] MCH 28.5 25.6 - 32.2 pg [facility] MCHC 31.3(L) 32.2 - 36.5 g/dL [facility] RDW 14.5(H) 11.6 - 14.4 % [facility] Absolute Neutrophil Count 4,714 cells/uL [facility] Absolute Seg Count 4,714 1,440 - 6,600 cells/uL [facility] Absolute Lymph Count 738(L) 760 - 4,000 cells/uL [facility] Absolute Eos Count 170 0 - 300 cells/uL [facility] Absolute Baso Count 57 0 - 100 cells/uL [facility] Segmented Neutrophils 83(H) 36 - 66 % [facility] Lymphocytes 13(L) 19 - 40 % [facility] Eosinophils 3 0 - 3 % [facility] Basophils 1 0 - 1 % [facility] WBC Estimate Normal [facility] PR[facility] T[facility] Platelet Estimate Low [facility] PRESS T[facility] RBC Morphology Normal CANCE R PRESS TENDER [facility] Blood 09/01/2024 10:4 5 AM CDT Narrative [facility] - 09/01/2024 1:33 PM CDT Release to patient->Immediate Tanvi Tobar SEMICONDUCTOR PACKAGES SEALER, ELEVATOR CONSTRUCTOR HYDRAULIC HEMATOLOGY ORDERABLES Final Result [facility] [place] [phone] [address] [place] [address], * (ABNORMAL) CULTURE, URINE (08/04/2024 11:27 AM CDT) Only the most recent of2 resultswithin the time period is included. URINE CULTURE, ROUTINE FINAL REPORT(A) [facility] RESULT 1 ESCHERICHIA COLI(A) [facility] Comment: CEFAZOLIN WITH AN JOSE <=16 PREDICTS SUSCEPTIBILITY TO THE ORAL AGENTS CEFACLOR, CEFDINIR, CEFPODOXIME, CEFPROZIL, CEFUROXIME, CEPHALEXIN, AND LORACARBEF WHEN USED FOR THERAPY OF UNCOMPLICATED URINARY TRACT INFECTIONS DUE TO E. COLI, KLEBSIELLA PNEUMONIAE, AND PROTEUS MIRABILIS. 10,000-25,000 COLONY FORMING UNITS PER ML ANTIMICROBIAL SUSCEPTIBILITY COMMENT [facility] Comment: S = SUSCEPTIBLE; I = INTERMEDIATE; [...] / Unknown 08/04/2024 11:27 AM CDT Narrative [facility] - 08/08/2024 3:07 AM CDT TESTING PERFORMED AT: [] [facility], [address] [place] [address], [place], [address], PHONE: [phone], SPRAY APPLICATOR: NAVEEN VEGA, PHD Release to patient->Immediate us Tanvi Tobar APRN, ELEVATOR CONSTRUCTOR HYDRAULIC MICROBIOLOGY - GENERA L ORDERABLES Final Result Performing Organization Address [facility]/ZIP Co de Phone Number [facility] [address] [place] [address], * VITAMIN B12 (08/04/2024 10:37 AM CDT) Only the most recent of2 resultswithin the time period is included. Vitamin B12 711 180 - 914 pg/mL [facility] Blood 08/04/2024 10:3 7 AM CDT [facility] - 08/05/2024 3:02 PM CDT Release to patient->Immediate Tanvi Tobar SEMICONDUCTOR PACKAGES SEALER, ELEVATOR CONSTRUCTOR HYDRAULIC CHEMISTRY ORDERABLES Final Result Performing Organization Address City/[facility]/ZIP Co de Phone Number [facility] [address] [place] [address], * FOLIC ACID (FOLATE) (08/04/2024 10:37 AM CDT) Only the most recent of2 resultswithin the time period is included. Folate 14.45 >=5.90 ng/mL [facility] Blood 08/04/2024 10:3 7 AM CDT [facility] - 08/05/2024 3:02 PM CDT Release to patient->Immediate IS THE PATIENT REQUIRED TO BE FASTING FOR 12 HOURS?->No Tanvi Tobar SEMICONDUCTOR PACKAGES SEALER, ELEVATOR CONSTRUCTOR HYDRAULIC CHEMISTRY ORDERABLES Final Result Performing Organization Address City/[facility]/ZIP Co de Phone Number [facility] Cancer Care [facility] [address] [place] [address], * ANCA (VASCULITIS) [place], [place] [id number] (07/07/2024 10:47 AM CDT) Only the most recent of2 resultswithin the time period is included. ANTI-MPO ANTIBODIES 0.2 0.0 - 0.9 UNITS [facility] ANTI-PR3 ANTIBODIES <0.2 0.0 - 0.9 UNITS [facility] CYTOPLASMIC (C-ANCA) <1:20 NEG:<1:20 TITER [facility] PERINUCLEAR (P-ANCA) <1:20 NEG:<1:20 TITER [facility] PRESS TENDER [facility] [employer]NAL [facility] Comment: THE PRESENCE OF POSITIVE FLUORESCENCE EXHIBITING P-ANCA OR C-ANCA PATTERNS ALONE IS NOT SPECIFIC FOR THE DIAGNOSIS OF FADI'S GRANULOMATOSIS (WG) OR MICROSCOPIC POLYANGIITIS. DECISIONS ABOUT TREATMENT SHOULD NOT BE BASED SOLELY ON ANCA IFA RESULTS. THE INTERNATIONAL ANCA GROUP CONSENSUS RECOMMENDS FOLLOW UP TESTING OF POSITIVE SERA WITH BOTH OK- 3 AND MPO-ANCA ENZYME IMMUNOASSAYS. MANY 5% SERUM SAMPLES ARE POSITIVE ONLY BY EIA. REF. AM J CLIN PATHOL 1999;111:507-513. ATYPICAL PANCA <1:20 NEG:<1:20 TITER [facility] Comment: THE ATYPICAL PANCA PATTERN HAS BEEN OBSERVED IN A SIGNIFICANT PERCENTAGE OF PATIENTS WITH ULCERATIVE COLITIS, PRIMARY SCLEROSING CHOLANGITIS AND AUTOIMMUNE HEPATITIS. 07/07/2024 10:4 7 AM CDT Narrative [facility] - 07/09/2024 8:18 PM CDT TESTING PERFORMED AT: [BN] [facility] [address], [address], PHONE: [phone], SPRAY APPLICATOR: SHOAIB OCAMPO MD TESTING PERFORMED AT: [CB] [facility] [address], [address], PHONE: [phone], SPRAY APPLICATOR: NAVEEN VEGA, PHD Tiffanie Weiss MD LAB SEND OUTS Final Result [facility] PR[facility] T[facility]ER [facility] [place] [address], * (ABNORMAL) URINALYSIS WITH MICROSCOPIC, C/S IF INDICATED [place] (07/07/2024 10:47 AM CDT) Urine Color Light Yellow Straw-Yel low [facility] Urine Clarity Clear Clear [facility] Urine Glucose NEG NEG mg/dL [facility] PRESS TENDER STAR SIGNAL OF [facility] Urine Bilirubin NEG NEG mg/dL [facility] ER PRESS TENDER STAR SIGNAL OF [facility] Urine Ketones NEG NEG mg/dL [facility] PRESS TENDER STAR SIGNAL OF [facility] Urine Specific [place] 1.020 1.015 - 1.020 [facility] Urine Blood NEG NEG mg/L [facility] Urine pH 5.0 5.0 - 8.0 [pH] [facility] Urine Protein NEG NEG mg/dL [facility] Urine Urobilinogen 0.2 0.2 - 1.0 mg/dL [facility] Urine Nitrite NEG NEG [facility] PRESS TENDER STAR SIGNAL OF [facility] Urine Leukocytes NEG NEG [facility] PR[facility] T[facility]ER [facility] Urine Epithelial Cells Rare None,Rare ,Few /LPF [facility] PRESS TENDER STAR SIGNAL OF [facility] Urine Mucus Few(A) None /LPF [facility]TER [facility] Urine Cast None None /LPF [facility] CE NTER [facility] Urine Bacteria Few(A) None /HPF CANCE R PRESS TENDER STAR SIGNAL OF [facility] Urine Crystal None None /LPF [facility] T[facility] Urine White Blood Cells 5-10(A) 0 - 4 /HPF [facility] Urine Red Blood Cells 0-2 0 - 2 /HPF [facility] 07/07/2024 10:4 7 AM CDT us Tiffanie Weiss MD LAB SEND OUTS Final Result Performing Organization Address City/[facility]/ZIP Co de Phone Number [facility] PR[facility] T[facility]ER [facility] of [address] [place] [place] [address], * (ABNORMAL) C-REACTIVE PROTEIN (CRP) QUANT (07/07/2024 10:47 AM CDT) Only the most recent of2 resultswithin the time period is included. CRP 7.4(H) <5.0 mg/L [facility] 07/07/2024 10:4 7 AM CDT us Tiffanie Weiss MD CHEMISTRY ORDERABLES Final Resul t [facility] T[facility] of [address] [address], * (ABNORMAL) ERYTHROCYTE SEDIMENTATION RATE (ESR) (07/07/2024 10:39 AM CDT) Only the most recent of2 resultswithin the time period is included. Erythrocyte Sedimentation Rate 44(H) 0 - 20 mm/hr [facility] 07/07/2024 10:3 9 AM CDT Sindi Qiu APRN, ELEVATOR CONSTRUCTOR HYDRAULIC HEMATOLOGY ORDERABLES Final Result [facility] PRESS TENDER STAR SIGNAL OF [facility] of [address] [address], [place] [phone] * URINALYSIS WITH MICROSCOPIC [place] (06/09/2024 10:51 AM CDT) Urine Color Yellow Straw-Yel low [facility] PR[facility] TENDER STAR SIGNAL OF [facility] Urine Clarity Clear Clear [facility] PRESS TENDER STAR SIGNAL OF [facility] Urine Glucose NEG NEG mg/dL [facility] PRESS TENDER ST[facility] SIGNAL OF [facility] Urine Bilirubin NEG NEG mg/dL CANC ER PRESS TENDER STAR SIGNAL OF [facility] Urine Ketones NEG NEG mg/dL [facility] Urine Specific [place] 1.020 1.015 - 1.020 [facility] T[facility] Urine Blood NEG NEG mg/L [facility] C ENTER [facility] Urine pH 5.0 5.0 - 8.0 [pH] [facility] PR[facility] T[facility] Urine Protein NEG NEG mg/dL [facility] PRESS TENDER STAR SIGNAL OF [facility] Urine Urobilinogen 0.2 0.2 - 1.0 mg/dL [facility] PR[facility] TENDER [facility]NAL OF [facility] Urine Nitrite NEG NEG [facility] PRESS TENDER ST[facility] SIGNAL OF [facility] Urine Leukocytes NEG NEG CAN [facility]ER PRESS TENDER STAR SIGNAL OF [facility] Urine Epithelial Cells Few None,Rare ,Few /LPF CANCER PRESS TENDER STAR SIGNAL OF [facility] Urine Mucus None None /LPF CANCER C ENTER [facility] Urine Cast None None /LPF CANCER CE NTER [facility] Urine Bacteria None None /HPF CANCE R PRESS TENDER STAR SIGNAL OF [facility] Urine Crystal None None /LPF CANCER PRESS TENDER STAR SIGNAL OF [facility] Urine White Blood Cells 0-4 0 - 4 /HPF CANCER PRESS TENDER STAR SIGNAL [facility] Urine Red Blood Cells 0-2 0 - 2 /HPF CANCER PRESS TENDER STAR SIGNAL [facility] 06/09/2024 10:5 1 AM CDT Tiffanie Weiss MD LAB SEND OUTS Final Result Performing Organization Address [facility] Co de Phone Number CANCER PRESS TENDER STAR SIGNAL [facility] [place] [address] [place] [address], * RETICULOCYTE COUNT (RETIC) (06/09/2024 10:44 AM CDT) Reticulocyte count 1.76 0.51 - 1.81 % CANCER PRESS TENDER STAR SIGNAL [facility] RET-He 30.10 28.20 - 36.60 pg CANCER PRESS TENDER ST[facility] Comment: RET-He is a direct assessment of incorporation of iron into erythrocyte hemoglobin. It provides an indirect measure of the iron available for new erythropoiesis over past 2-4 days. Blood 06/09/2024 10:4 4 AM CDT [facility] - 06/09/2024 11:09 AM CDT Release to patient->Immediate us Sindi Qiu APRN, ELEVATOR CONSTRUCTOR HYDRAULIC HEMATOLOGY ORDERABLES Final Result Performing Organization Address [facility] Co de Phone Number [facility] [address] [place] [address], * LACTATE DEHYDROGENASE (LD) (06/09/2024 10:44 AM CDT) LDH 168 140 - 271 U/L [facility] PRESS TENDER [facility] Blood 06/09/2024 10:4 4 AM CDT Narrative [facility] - 06/09/2024 11:42 AM CDT Release to patient->Immediate us Sindi Qiu APRN, ELEVATOR CONSTRUCTOR HYDRAULIC CHEMISTRY ORDERABLES Final Result Performing Organization Address City/[facility]/ZIP Co de Phone Number CANCER PRESS TENDER STAR SIGNAL [facility] [address] [place] [address], [place] [phone] * (ABNORMAL) FERRITIN (06/09/2024 10:44 AM CDT) Ferritin 465(H) 24 - 336 ng/mL CAN[facility] PRESS TENDER [facility] Blood 06/09/2024 10:4 4 AM CDT Narrative CANC[facility] PRESS TENDER STAR SIGNAL [facility] - 06/10/2024 3:03 PM CDT Release to patient->Immediate Sindi Qiu APRN, ELEVATOR CONSTRUCTOR HYDRAULIC CHEMISTRY ORDERABLES Final Result [facility] PRESS TENDER STAR SIGNAL [facility] [address] [place] [address], [place] [phone] from Last 3 Months Insurance MEDICARE MEDICARE [facility] Care Teams Injection Molding Machine Offbearer Relationship Specialty Start Date End Date Scott Oneill MD PCP - General Internal Medicine 04/29/17 Tavo Mishra MD [address] [address] Internal Medicine 04/29/17 Kev Moser MD [address] [place] [phone] Consulting Physician Oncology 02/09/20
--- OUTSIDE RECORDS SUMMARY | 2024-09-01 14:16 | XMS_ITS | Clinical Summary ---
Author Organization 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 Gender Identity Not on file Sexual Orientation Not on file Last Filed Vital Signs Vital Sign Reading Time Taken Comments Blood Pressure 146/58 05/02/2017 10:20 AM LASTING MACHINE OPERATOR Pulse 103 05/02/2017 10:20 AM LASTING MACHINE OPERATOR Temperature 36.9 C (98.5 F) 05/02/2017 10:20 AM LASTING MACHINE OPERATOR Respiratory Rate 18 05/02/2017 10:20 AM LASTING MACHINE OPERATOR Oxygen Saturation - - Inhaled Oxygen Concentration - - Weight 97.1 kg (214 lb) 05/02/2017 10:20 AM LASTING MACHINE OPERATOR Height 166.4 cm (5' 5.5) 05/02/2017 10:20 AM CS T Body Mass Index 35.07 05/02/2017 10:20 AM LASTING MACHINE OPERATOR Plan of Treatment Health Maintenance Due [...] series) 2014 INFLUENZA VACCINE (#1) [address] [facility] BLUE ACCESS CHOICE Care Teams Sprinkling System Irrigator Relationship Specialty Start Date End Date Scott Oneill MD [address] [phone] PCP - General Internal Medicine 05/02/17
--- OUTSIDE RECORDS SUMMARY | 2024-09-01 14:16 | XMS_ITS | Encounter Summary ---
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
--- OUTSIDE RECORDS SUMMARY | 2024-09-01 14:16 | XMS_ITS | Clinical Summary ---
Author Organization [facility] Address [address] [place] [address] Phone Care Team Providers Care Electric Appliance Installer Name Role Phone Bia Oneill MD Primary Care Provider [phone] Allergies No known active allergies Medications apixaban [...] 2 Active ergocalciferol (VITAMIN D2) 1.25 MG (95095 UT) capsule Take 1 capsule by mouth [...] Comments Blood Pressure 128/60 02/27/2022 1:41 PM PHYSICAL OPTICS TEACHER Pulse 72 02/27/2022 1:41 PM PHYSICAL OPTICS TEACHER Temperature 36.7 C (98 F) 02/27/2022 1:41 PM PHYSICAL OPTICS TEACHER Respiratory Rate - - Oxygen Saturation - - Inhaled Oxygen Concentration - - Weight 96.2 kg (212 lb) 02/27/2022 1:41 PM PHYSICAL OPTICS TEACHER Height 165.1 cm (5' 5) 02/27/2022 1:41 PM PHYSICAL OPTICS TEACHER Body Mass Index 35.28 02/27/2022 1:41 PM PHYSICAL OPTICS TEACHER Plan of Treatment Health Maintenance Due Date Last Done Comments Pneumococcal PPSV23/PCV13 65 + Years / High and Highest Risk (1 of 5 - PCV) 1974 COVID-19 Vaccine (2023-2 5 season) 2023 07/11/2020, 05/13/2020, 05/13/2020 Influenza Vaccine (Season Ended) 2024 12/29/2021, 02/06/2020, 12/27/2019, Additional history exists Insurance [facility] [id number] [facility] MEDICARE SUPPLEMENT ANDRES NEUMANN [id number] Care Teams Electric Appliance Installer Relationship Specialty Start Date End Date Bia Oneill MD [address] [address] PCP - General Internal Medicine 07/16/18
--- OUTSIDE RECORDS SUMMARY | 2024-09-01 14:17 | XMS_ITS | Encounter Summary ---
Author Organization [facility] Address [address] [place] [address] Phone Care Team Providers Care Fruit Peeler Name Role Phone Scott Oneill MD Primary Care Provider [phone] Reason for Referral * Cardiology (Routine) - Closed Specialty Diagnoses / Procedures Referred By Contac t Referred To Contact Procedures Transthoracic Echo (TTE) Complete W Doppler/CF Rivera Veras MD [address] [place] [address] Phone: tel: Referral ID Status Reason Start Date Expiration Date Visits Re quested Visits Authorized [id number] Closed 08/27/2024 09/26/2025 1 1 Encounter Details Date Type Department Care Team (Late st Contact Info) Description 08/27/2024 Orders Only [facility] Pulmonary [facility] Advanced Medicine 8th [place] [address] [place] [phone] Rivera Veras MD [address] [place] [address] Social History Tobacco Use Types [...] on file 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 Gender Identity Male 12/24/2023 11:25 AM CDT Sexual Orientation Straight 12/24/2023 11 :25 AM CDT 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 Start 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 Job End Date [employer], 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, 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 Not on file Not on file Not on file documented as of this encounter Plan of Treatment Not on file documented as of this encounter Procedures Procedure Name Priority Date/Time Associated Diagnosis Comments TRANSTHORACIC ECHO (TTE) COMPLETE W DOPPLER/CF Routine 08/27/2024 1:12 PM CDT documented in this encounter Results * Transthoracic Echo (TTE) Complete W Doppler/CF (08/27/2024 1:12 PM CDT) Anatomical Region Laterality Modality Ultrasound us Historical Provider CV ECHO PROCEDURES Final Result documented in this encounter Visit Diagnoses Not on filedocumented in this encounter Care Teams Fruit Peeler Relationship Specialty Start Date End Date Scott Oneill MD PCP - General Internal Medicine 04/27/20 documented as of this encounter
--- OUTSIDE RECORDS SUMMARY | 2024-09-01 14:17 | XMS_ITS | Encounter Summary ---
Author Organization [facility] Address [address] [place] [address] Phone Care Team Providers Care Care Trainer Name Role Phone Scott Oneill MD Primary Care Provider [phone] Tavo Mishra MD Unavailable [phone] Kev Moser MD Unavailable [phone] Reason for Visit * Reason Comments Follow-up Encounter Details Date Type Department Care Team (Late st Contact Info) Description 09/01/2024 11:15 AM CDT Office Visit [facility] [address] [place] [phone] Tanvi Tobar, ER REGISTRAR, DOCTOR CHIROPRACTIC [address] [place] [address], [address] [place] [address] Anemia in stage 3a chronic kidney disease (HCC) (Primary Dx); Iron deficiency anemia due to sideropenic dysphagia; Vitamin B 12 deficiency Social History Tobacco [...] on file 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 Question Answer Date of Assessment Author Patient Health Questionnaire -2 Score 0 09/01/2024 11:03 AM CDT Olga Sage RN documented as of this encounter Plan of Treatment Upcoming Encounters Date Type Department Care Team (Late st Contact Info) Description 09/29/2024 11:00 AM CDT Lab [facility] [address] [address] Lab, [facility] 09/29/2024 11:15 AM CDT Clinical Support [facility] [address] [phone] Nurse, [facility] 10/27/2024 11:05 AM CDT Lab [facility] [address] [address] Lab, [facility] 10/27/2024 11:15 AM CDT Office Visit [facility] [address] [phone] Michael Austin MD [address] [place] [address] 10/27/2024 11:30 AM CDT Clinical Support [facility] [address] [phone] Nurse, [facility] Scheduled Orders Name Type Priority Associated Diagnoses Orde r Schedule COMPLETE BLOOD COUNT (CBC) WITH DIFF Lab Routine Anemia in stage 3a chronic kidney disease (HCC) Iron deficiency anemia due to sideropenic dysphagia Vitamin B 12 deficiency every 4 weeks for 20 Occurrences starting 09/01/2024 until 09/01/2025 COMPLETE BLOOD COUNT (CBC) WITH DIFF Lab Routine Anemia in stage 3a chronic kidney disease (HCC) Iron deficiency anemia due to sideropenic dysphagia Vitamin B 12 deficiency Expected: 10/27/2024 (Approximate), Expires: 11/10/2024 CMP (COMPREHENSIVE METABOLIC PANEL) Lab Routine Anemia in stage 3a chronic kidney disease (HCC) Iron deficiency anemia due to sideropenic dysphagia Vitamin B 12 deficiency Expected: 10/27/2024 (Approximate), Expires: 11/10/2024 VITAMIN B12 Lab Routine Anemia in stage 3a chronic kidney disease (HCC) Iron deficiency anemia due to sideropenic dysphagia Vitamin B 12 deficiency Expected: 10/27/2024 (Approximate), Expires: 11/10/2024 IRON W/ IRON BINDING CAPACITY [place] Lab Routine Anemia in stage 3a chronic kidney disease (HCC) Iron deficiency anemia due to sideropenic dysphagia Vitamin B 12 deficiency Expected: 10/27/2024 (Approximate), Expires: 11/10/2024 FERRITIN Lab Routine Anemia in stage 3a chronic kidney disease (HCC) Iron deficiency anemia due to sideropenic dysphagia Vitamin B 12 deficiency Expected: 10/27/2024 (Approximate), Expires: 11/10/2024 FOLIC ACID (FOLATE) Lab Routine Anemia in stage 3a chronic kidney disease (HCC) Iron deficiency anemia due to sideropenic dysphagia Vitamin B 12 deficiency Expected: 10/27/2024 (Approximate), Expires: 11/10/2024 documented as of this encounter Visit Diagnoses Diagnosis Anemia in stage 3a chronic kidney disease (HCC)- Primary Iron deficiency anemia due to sideropenic dysphagia Vitamin B 12 deficiency Other B-complex deficiencies documented in this encounter Additional Health Concerns Assessment Noted Time PHQ-9 Depression Total Score: 0 11/25/19 21 11:34 AM CDT documented as of this encounter Care Teams Care Trainer Relationship Specialty Start Date End Date Scott Oneill MD PCP - General Internal Medicine 04/29/17 Tavo Mishra MD [address] [id number] Internal Medicine 04/29/17 Kev Moser MD [address] [place] [phone] Consulting Physician Oncology 02/09/20 documented as of this encounter
--- OUTSIDE RECORDS SUMMARY | 2024-09-01 14:17 | XMS_ITS | Encounter Summary ---
Author Organization [facility] Address [address] [place] [address] Phone Care Team Providers Care Fiber Technician Name Role Phone Scott Oneill MD Primary Care Provider [phone] Encounter Details Date Type Department Care Team (Late st Contact Info) Description 09/01/2024 Telephone [place] [id number] [facility] 8th [place] [address] [place] [phone] Margret Cobb CMA Social History Tobacco Use [...] on file Legal Sex Male 1:23 AM CANDLEMAKER Gender Identity Male 12/24/2023 11:25 AM CDT Sexual Orientation Straight 12/24/2023 11 :25 AM CDT 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 documented in this encounter Plan of Treatment Not on file documented as of this encounter Visit Diagnoses Not on filedocumented in this encounter Care Teams Fiber Technician Relationship Specialty Start Date End Date Scott Oneill MD PCP - General Internal Medicine 04/27/20 documented as of this encounter
--- OUTSIDE RECORDS SUMMARY | 2024-09-01 14:17 | XMS_ITS | Encounter Summary ---
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 Question Answer Date of Assessment Author Patient Health Questionnaire -2 Score 0 09/01/2024 11:03 AM Olga Chiang RN documented as of this encounter Plan of Treatment Upcoming Encounters Date Type Department Care Team (Late st Contact Info) Description 09/29/2024 11:00 AM CDT Lab [facility] [address] [phone] Lab, [facility] 09/29/2024 11:15 AM CDT Clinical Support [facility] [address] [phone] Nurse, [facility] 10/27/2024 11:05 AM CDT Lab [facility] [address] [phone] Lab, [facility] 10/27/2024 11:15 AM CDT Office Visit [facility] [address] [phone] Michael Austin MD [address] [place] [phone] 10/27/2024 11:30 AM CDT Clinical Support [facility] [address] [phone] Nurse, [facility] documented as of this encounter Visit Diagnoses Not on filedocumented in this encounter Additional Health Concerns Assessment Noted Time PHQ-9 Depression Total Score: 0 11/25/19 21 11:34 AM CDT documented as of this encounter Care Teams Cooling System Operator Relationship Specialty Start Date End Date Scott Oneill MD PCP - General Internal Medicine 04/29/17 Tavo Mishra MD [address] [phone] Internal Medicine 04/29/17 Kev Moser MD [address] [place] [phone] Consulting Physician Oncology 02/09/20 documented as of this encounter
--- OUTSIDE RECORDS SUMMARY | 2024-09-01 14:17 | XMS_ITS | Encounter Summary ---
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 Gender Identity Not on file Sexual Orientation Not on file documented as of this encounter Functional Status * Question Answer Date of Assessment Author Little interest or pleasure in doing things Not at all 09/01/2024 11:03 AM CDT Olga Sage, [place] Feeling down, depressed, or hopeless Not at [...] CDT Lab [facility] [address] [address] Lab, [facility] 09/29/2024 11:15 AM CDT Clinical Support [facility] [address] [phone] Nurse, [facility] 10/27/2024 11:05 AM CDT Lab [facility] [address] [phone] Lab, [facility] 10/27/2024 11:15 AM CDT Office Visit [facility] [address] [phone] Michael Austin MD [address] [place] [address] 10/27/2024 11:30 AM CDT Clinical Support [facility] [address] [phone] Nurse, [facility] documented as [...] (CBC) WITH DIFF (09/01/2024 10:45 AM CDT) WBC 5.7 4.0 - 10.0 10*3/uL [facility] HGB 11.0(L) 13.7 - 17.5 g/dL [facility] HCT 35.2(L) 40.1 - 51.0 % [facility] PLT 149(L) 163 - 369 10*3/uL [facility] MPV 9.7 9.4 - 12.4 fL [facility] RBC 3.86(L) 4.63 - 6.08 10*6/uL [facility] MCV 91 79 - 95 fL [facility] MCH 28.5 25.6 - 32.2 pg [facility] MCHC 31.3(L) 32.2 - 36.5 g/dL [facility] RDW 14.5(H) 11.6 - 14.4 % [facility] Absolute Neutrophil Count 4,714 cells/uL [facility] Absolute Seg Count 4,714 1,440 - 6,600 cells/uL [facility] Absolute Lymph Count 738(L) 760 - 4,000 cells/uL [facility] Absolute Eos Count 170 0 - 300 cells/uL [facility] Absolute Baso Count 57 0 - 100 cells/uL [facility] Segmented Neutrophils 83(H) 36 - 66 % [facility] Lymphocytes 13(L) 19 - 40 % [facility] Eosinophils 3 0 - 3 % [facility] Basophils 1 0 - 1 % [facility] WBC Estimate Normal [facility] Platelet Estimate Low [facility] RBC Morphology Normal C[facility] R STOCK SPECUL[facility] Blood 09/01/2024 10:4 5 AM CDT Narrative [facility] - 09/01/2024 1:33 PM CDT Release to patient->Immediate Tanvi Tobar FLEET MANAGER, PLANE CAPTAIN HEMATOLOGY ORDERABLES Final Result [facility] [place] [address], * (ABNORMAL) CMP (COMPREHENSIVE METABOLIC PANEL) (09/01/2024 10:45 AM CDT) Glucose 163(H) 70 - 105 mg/dL [facility] STOCK SPECULATOR [facility] Blood Urea Nitrogen 42(H) 7 - 25 mg/dL [facility] Creatinine 2.5(H) 0.7 - 1.3 mg/dL [facility] Sodium 137 136 - 145 mEq/L [facility] Potassium 4.6 3.5 - 5.1 mEq/L [facility] Chloride 106 98 - 107 mEq/L [facility] Bicarbonate 20(L) 21 - 31 mEq/L [facility] Total Bilirubin 0.5 0.3 - 1.0 mg/dL [facility] Alk. Phosphatase 75 34 - 104 U/L [facility] Aspartate Aminotransferase 10(L) 13 - 39 U/L [facility] Alanine Aminotransferase 11 7 - 52 U/L [facility] Total Protein 6.0(L) 6.4 - 8.9 g/dL [facility] Albumin 4.2 3.5 - 5.7 g/dL [facility] Calcium 8.4(L) 8.6 - 10.3 mg/dL [facility] Anion Gap 15.6(H) 7.0 - 15.0 mEq/L [facility] Globulin 1.8(L) 2.0 - 3.5 g/dL [facility] STOCK SPECULATOR [facility] EGFR 27(L) >60 ml/min/1. 73m2 [facility] Comment: This eGFR is calculated using 2020 CKD-EPI Creatinine equation without race modifier based on the NKF-ASN task force recommendations Equation: fUDY=153*min(SCr/k,1)a*max(SCr/k,1)-1.200*0.9938Age*1.012 (if female), where SCr is serum creatinine, k is 0.7 for females and 0.9 for males, and a is -0.241 for females and -0.302 for males Blood 09/01/2024 10:4 5 AM CDT [facility] - 09/01/2024 11:50 AM CDT Release to patient->Immediate IS THE PATIENT REQUIRED TO BE FASTING FOR 8 HOURS?->No Tanvi Tobar APRN, [place] CHEMISTRY ORDERABLES Final Result Performing Organization Address City/[facility]/ZIP Co de Phone Number [facility] [place] [address] [place] [address], [place] [phone] * IRON W/ IRON BINDING CAPACITY [place] (09/01/2024 10:45 AM CDT) IRON 66 50 - 212 ug/dL [facility] UIBC 204 155 - 355 ug/dL [facility] TIBC 270 261 - 478 ug/dl [facility] % Saturation 24 20 - 50 % [facility] 09/01/2024 10:4 5 AM CDT [facility] - 09/01/2024 11:50 AM CDT Release to patient->Immediate Tanvi Tobar APRN, CNP LAB SEND OUTS Final Result [facility] [place] [address] [place] [address], [place] [phone] documented in this encounter Visit Diagnoses Diagnosis Anemia in stage 3a chronic kidney disease (HCC) Other autoimmune hemolytic anemia Vitamin B 12 deficiency Other B-complex deficiencies Iron deficiency anemia due to sideropenic dysphagia documented in this encounter Additional Health Concerns Assessment Noted Time PHQ-9 Depression Total Score: 0 11/25/19 21 11:34 AM CDT documented as of this encounter Care Teams Piece Goods Clerk Relationship Specialty Start Date End Date Scott Oneill MD PCP - General Internal Medicine 04/29/17 Tavo Mishra MD [address] [address] Internal Medicine 04/29/17 Kev Moser MD [address] [place] [phone] Consulting Physician Oncology 02/09/20 documented as of this encounter
--- OUTSIDE RECORDS SUMMARY | 2024-09-01 14:17 | XMS_ITS | Encounter Summary ---
Author Organization [facility] Address [address] [place] [address] Phone Care Team Providers Care Flanging Roll Operator Name Role Phone Scott Oneill MD Primary Care Provider Tavo Mishra MD Unavailable [phone] Kev Moser MD Unavailable [phone] Reason for Visit * Reason Onset Date Comments canopy call/cigar packer and picker Eliquis samples 05/26/2024 Encounter Details Date Type Department Care Team (Late st Contact Info) Description 05/26/2024 Telephone [facility] [address] [place] [address] Kev Moser MD [address] [place] [phone] canopy call/cigar packer and picker Eliquis samples Social History Tobacco Use [...] on file 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 GY TRADER * Telephone Encounter - Suzie Black RN - 05/26/2024 1:57 PM CST pt called to speak to Fritz regarding Eliquis samples [phone] Spoke with patient he will cigar packer and picker Eliquis samples today by 3pm. GY TRADER documented in this encounter Plan of Treatment Upcoming Encounters Date Type Department Care Team (Late st Contact Info) Description 09/29/2024 11:00 AM CDT Lab [facility] [address] [address] Lab, [facility] 09/29/2024 11:15 AM CDT Clinical Support [facility] [address] [address] Nurse, [facility] [place]ne [place] 10/27/2024 11:05 AM CDT Lab [facility] [address] [address] Lab, [facility] 10/27/2024 11:15 AM CDT Office Visit [facility] [address] [address] Michael Austin MD [address] [place] [address] 10/27/2024 11:30 AM CDT Clinical Support [facility] [address] [phone] Nurse, [facility] Marianne [place] documented as of this encounter Visit Diagnoses Not on filedocumented in this encounter Additional Health Concerns Assessment Noted Time PHQ-9 Depression Total Score: 0 11/25/19 11:34 AM CDT documented as of this encounter Care Teams Flanging Roll Operator Relationship Specialty Start Date End Date Scott Oneill MD PCP - General Internal Medicine 04/29/17 Tavo Mishra MD [address] [phone] Internal Medicine 04/29/17 Kev Moser MD [address] [place] [phone] Consulting Physician Oncology 02/09/20 documented as of this encounter
--- OUTSIDE RECORDS SUMMARY | 2024-09-01 14:17 | XMS_ITS | Encounter Summary ---
Author Organization [facility] Address [address] [place] [address] Phone Care Team Providers Care Car Groomer Name Role Phone Scott Oneill MD Primary Care Provider [phone] Kev Prince DO Unavailable [phone] Tavo Mishra MD Unavailable [phone] Gilmer Barnard MD Unavailable [phone] Kev Moser MD Unavailable [phone] Encounter Details Date Type Department Care Team (Late st Contact Info) Description 08/11/2020 Telephone [facility] [address] [place] [address] Kev Moser MD [address] [place] [phone] Social History Tobacco Use Types Packs/Day [...] on file 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 I have a call out to get those labs faxed over but were there other labs that you needed that [facility] did not draw on Friday? documented in this encounter Plan of Treatment Upcoming Encounters Date Type Department Care Team (Late st Contact Info) Description 09/29/2024 11:00 AM CDT Lab [facility] [address] [address] Lab, [facility] [place] 09/29/2024 11:15 AM CDT Clinical Support [facility] [address] [address] Nurse, Gricelda Lopes [place] 10/27/2024 11:05 AM CDT Lab [facility] [address] [address] Lab, [facility] 10/27/2024 11:15 AM CDT Office Visit [facility] [address] [address] Michael Austin MD [address] [place] [address] 10/27/2024 11:30 AM CDT Clinical Support [facility] [address] [address] [facility] documented as of this encounter Visit Diagnoses Not on filedocumented in this encounter Additional Health Concerns Assessment Noted Time PHQ-9 Depression Total Score: 0 08/12/19 21 11:41 AM CDT documented as of this encounter Care Teams Car Groomer Relationship Specialty Start Date End Date Scott Oneill MD PCP - General Internal Medicine 04/29/17 Kev Prince DO Gastroenterology 04/29/17 12/09/22 Tavo Mishra MD [address] [place] [address] Internal Medicine 04/29/17 Gilmer Barnard MD [address] [place] [address] Consulting Physician Internal Medicine 08/28/17 4 Kev Moser MD [address] [place] [phone] Consulting Physician Oncology 02/09/20 documented as of this encounter
--- OUTSIDE RECORDS SUMMARY | 2024-09-01 14:17 | XMS_ITS | Referral Summary ---
Author Organization [facility] [address] Address [address] [place] [address] Care Team Providers Care Inspector Watch Train Name Role Phone Scott Oneill MD Primary Care Provider [phone] Encounters Date Type Department Care Team Description 09/01/2024 Telephone [facility] Pulmonary [address] [facility] [address]th [place] [address] [place] [phone] Margret Cobb CMA 08/27/2024 Orders Only [facility] Pulmonary [address] [facility] 8th [place] [address] [place] [address] ProviderRivera MD 08/27/2024 Documentation [facility] Pulmonary [address] [facility] 8th [place] [address] [place] [address] Marce Bernal MD Test Results 08/10/2024 Telephone [facility] Pulmonary [address] [facility] 8th [place] [address] [place] [address] Margret Cobb CMA 08/06/2024 Documentation [facility] Pulmonary [address] [facility] 8th [place] [address] [place] [address] Polly Paulino RN 08/05/2024 3:00 PM CDT Office Visit [facility] Pulmonary [address] [facility] 8th [place] [address] [place] [address] Marce Bernal MD Interstitial lung disease (HCC) (Primary Dx); Stage 3b chronic kidney disease (HCC); BMI 35.0-35.9,adult; Microscopic polyangiitis (HCC) 08/05/2024 1:22 PM CDT - 08/05/2024 11:59 PM CDT Hospital Encounter [facility] Pulmonary [address] [facility] [address] [place] [phone] Microscopic polyangiitis (HCC) Discharge Disposition: Discharge to [...] on file 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 Gender Identity Male 12/24/2023 11:25 AM CDT Sexual Orientation Straight 12/24/2023 11 :25 AM CDT 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 Start Date Job End Date [employer], 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, 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 Not on file Not on file Not [...] t EXTERNAL LAB * CRP (acute phase) (08/24/2024) SCRIBED CRP <0.5 <1.0 - <1.0 mg/L EXTERNAL LAB Blood 08/24/2024 Tiffanie Weiss MD LAB BLOOD ORDERABLES Final Resul t EXTERNAL LAB * Pulmonary Function Test - (08/05/2024 2:05 PM CDT) FVC PRE 2.56 L [facility] FVC %PRE PRED 77 % [facility] FEV1 PRE 2.25 L [facility] FEV1 %PRE PRED 88 % [facility] FEV1/FVC PRE 87.7 % [facility] Anatomical Region Laterality Modality PFT 08/05/2024 1:34 PM CDT Narrative 08/05/2024 6:28 PM CDT Table formatting from the original result was not included. [facility] Division of Pulmonary & Critical Care Medicine [address] [place] [address]; [address]; [place] [id number]; [phone] Pulmonary Function Laboratory Pulmonary Stress Test Simple/Oxygen [...] Work [distance (m) x body wt (kg)]: 74534 kg.m (normal >60,000kg.m) Oxygen required to maintain SpO2 greater than 90% during six minutes of walkin L/M Comments: [id number] STOPPED DUE HIP AND LEG PAIN. Interpretation: [...] the written final report. PFT performed at:->[facility] Adult PFT Lab- CAM-8D Procedure:->Spirometry Procedure:->Oxygen [...] is age dependent. However, the [facility] Pulmonary Function Laboratory defines hypoxemia as a PaO2 <56 mm Hg or a %HbO2 <89%. Starting on March of 2024 the [facility] Pulmonary Function Laboratory utilizes race neutral GLI Global normative equations. us Marce Bernal MD PFT ORDERABLES Final Result * SCAN - LABS (06/02/2024) Provider Scanning Edited Result - Final from Last 3 Months Insurance MEDICARE MEDICARE [employer] [place] MEDICARE [employer] [place] [employer] MEDICARE Advance Directives For more information, please contact: [phone] * Full Code (Latest Code Status on File) Date Activated Date Inactivated Comments 07/17/2020 8:05 PM 07/19/2020 7:41 PM * Full Code Date Activated Date Inactivated Comments 06/08/2020 6:02 PM 06/15/2020 7:20 PM Healthcare Agents on File Name Relationship Healthcare Agent Relationship Communication Shyann Nielsen Spouse First Alternat e Health Care Agent Care Teams Inspector Watch Train Relationship Specialty Start Date End Date Scott Oneill MD PCP - General Internal Medicine 04/27/20
--- OUTSIDE RECORDS SUMMARY | 2024-09-01 14:17 | XMS_ITS | Encounter Summary ---
Author Organization [facility] Address [address] [place] [address] Phone Care Team Providers Care Analytical Strategist Name Role Phone Scott Oneill MD Primary Care Provider [phone] Tavo Mishra MD Unavailable [phone] Kev Moser MD Unavailable [phone] Reason for Visit * Reason Comments Therapeutic Injection Other Sample dispense * Episode Based Medications (Routine) - Authorized Specialty Diagnoses / Procedures Referred By Contamy t Referred To Contact Diagnoses Vitamin B 12 deficiency Procedures VITAMIN B12 INJ RANGE DOSE 1-1,000 MCG Kev Moser MD [address] [place] [address] Phone: tel: fax: [facility] [address] [address] Phone: tel: fax: Referral ID Status Reason Start Date Expiration Date V isits Requested Visits Authorized [id number] Authorized 03/06/2022 03/30/2027 1 1 Encounter Details Date Type Department Care Team (Latest Contact Info) Description 09/01/2024 11:30 AM CDT Clinical Support [facility] [address] [address] Nurse, Gricelda WELCH Vitamin B [...] on file 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 Question Answer Date of Assessment Author Patient Health Questionnaire -2 Score 0 09/01/2024 11:03 AM CDT Olga Sage RN documented as of this encounter Progress Notes * Irina Pimentel CMA - 09/01/2024 11:30 AM CDT Patient tolerated B12 injection well with no complaints. Bandaid applied. Patient's performance status has not changed since arrival to clinic. Patient discharged per AMBULATORY UNACCOMPANIED. * Sharona Alberto RN - 09/01/2024 11:30 AM CDT ELIQUIS SAMPLE DISPENSE: 4 boxes given (56 tabs) LOT: [id number] EXP:09/2025 documented in this encounter Miscellaneous Notes * Addendum Note - Sharona Alberto RN - 09/01/2024 11:30 AM CDTAddended by: SHARONA ALBERTO on: 09/01/2024 12:19 PM Modules accepted: Orders documented in this encounter Plan of Treatment Upcoming Encounters Date Type Department Care Team (Late st Contact Info) Description 09/29/2024 11:00 AM CDT Lab [facility] [address] [phone] Lab, [facility] 09/29/2024 11:15 AM CDT Clinical Support [facility] [address] [phone] Nurse, [facility] 10/27/2024 11:05 AM CDT Lab [facility] [address] [phone] Lab, [facility] 10/27/2024 11:15 AM CDT Office Visit [facility] [address] [phone] Michael Austin MD [address] [place] [phone] 10/27/2024 11:30 AM CDT Clinical Support [facility] [address] [phone] Nurse, [facility] documented as of this encounter Visit Diagnoses Diagnosis Vitamin B 12 deficiency- Primary Other B-complex deficiencies documented in this encounter Administered Medications Inactive Administered Medications - up to 3 most recent administrations Medication Order MAR Action Action Date Dose Rate Site cyanocobalamin (VITAMIN B-12) injection 1,000 mcg 1,000 mcg, Subcutaneous, ONCE, 1 dose, On Fri09/01/24 at 1200, To be given 1 week prior to Chemotherapy. Route IM or SUBQ.Indications:Vitam in B 12 deficiency Given 09/01/2024 11:36 AM CDT 1,000 mcg Right Lateral Upper Arm documented in this encounter Additional Health Concerns Assessment Noted Time PHQ-9 Depression Total Score: 0 11/25/19 11:34 AM CDT documented as of this encounter Care Teams Analytical Strategist Relationship Specialty Start Date End Date Scott Oneill MD PCP - General Internal Medicine 04/29/17 Tavo Mishra MD [address] [phone] Internal Medicine 04/29/17 Kev Moser MD [address] [place] [phone] Consulting Physician Oncology 02/09/20 documented as of this encounter
--- OUTSIDE RECORDS SUMMARY | 2024-09-01 14:17 | XMS_ITS | Encounter Summary ---
Author Organization [facility] Address [address] [place] [address] Phone Care Team Providers Care Typewriter Mechanic Name Role Phone Scott Oneill MD Primary Care Provider [phone] Kev Prince DO Unavailable [phone] Tavo Mishra MD Unavailable [phone] Gilmer Barnard MD Unavailable [phone] Kev Moser MD Unavailable [phone] Encounter Details Date Type Department Care Team (Late st Contact Info) Description 12/31/2019 Telephone [facility] [place] [address] [place] [address] Kev Moser MD [address] [place] [phone] Social History Tobacco Use Types Packs/Day [...] on file 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 Gender Identity Not on file Sexual [...] AM CDT Lab [facility] [address] [address] Lab, [facility] 09/29/2024 11:15 AM CDT Clinical Support [facility] [address] [address] Nurse, Cc [facility] 10/27/2024 11:05 AM CDT Lab [facility] [address] [address] Lab, [facility] 10/27/2024 11:15 AM CDT Office Visit [facility] [address] [address] Michael Austin MD [address] [place] [address] 10/27/2024 11:30 AM CDT Clinical Support [facility] [address] [address] Nurse, Cc [facility] documented as of this encounter Visit Diagnoses Not on filedocumented in this encounter Additional Health Concerns Assessment Noted Time PHQ-9 Depression Total Score: 0 10/04/19 20 2:45 PM CDT documented as of this encounter Care Teams Typewriter Mechanic Relationship Specialty Start Date End Date Scott Oneill MD PCP - General Internal Medicine 04/29/17 Kev Prince DO Gastroenterology 04/29/17 12/09/22 Tavo Mishra MD [address] [facility] [address] [place] [phone] Internal Medicine 04/29/17 Gilmer Barnard MD [address] [address] Consulting Physician Internal Medicine 08/28/17 4 Kev Moser MD [address] [place] [phone] Consulting Physician Oncology 02/09/20 documented as of this encounter
[2024-09-01 15:36] LABS: Hematocrit 37.8 % (42.0-52.0); Hemoglobin 11.7 g/dL (14.0-18.0); Mean Corpuscular Hemoglobin 28.3 pg (26-34); Mean Corpuscular Volume 91.5 fl (80-100); Mean Platelet Volume 10.3 fl (7.4-10.4); Platelet Count Result 177 k/mm3 (150-375); Red Blood Count 4.13 M/mm3 (4.6-6.20); Red Cell Distribution Width 14.6 % (11.5-14.5); White Blood Count 6.7 K/mm3 (4.5-10.0)
[2024-09-01 16:33] LABS: Creatinine Urine 50.4 mg/dL; Total Protein Urine Random 8 mg/dL; Ur Ttl Prot Creatinine Ratio 0.16 mg/mg (0-0.20)
[2024-09-01 16:45] LABS: Albumin Level 4.6 g/dL (3.5-5.1); Anion Gap 10 mmol/L (4-12); Blood Urea Nitrogen 41 mg/dL (9-20); Calcium 9.2 mg/dL (8.4-10.2); Carbon Dioxide 19 mmol/L (22-30); Chloride 107 mmol/L (98-107); Estimated Glomerular Filt Rate 26; Glucose 69 mg/dL (65-110); Phosphorus 3.7 mg/dL (2.5-4.5); Potassium 5.1 mmol/L (3.4-5.0); Sodium 136 mmol/L (137-145)
[2024-09-04 16:18] LABS: ANCA Screen NEGATIVE (NEGATIVE)
== END 2024-09-01 14:05 | disposition home or self-care (01) ==
PROVIDERS: PCP Internal Medicine; Visit Provider Internal Medicine Nephrology
DX: N18.4 Chronic kidney disease, stage 4 (severe) (principal); M31.30 Wegener's granulomatosis without renal involvement
CPT/HCPCS: 36415; 80069; 82570; 83970; 84156; 85027; 86036

== ENCOUNTER 2024-11-11 09:21 | Outpatient (CLI) | payer MEDICARE, OTHER, SELFPAY ==
--- OUTSIDE RECORDS SUMMARY | 2024-11-11 09:37 | XMS_ITS | Clinical Summary ---
Author Organization [facility] Address [address] [address] Phone Care Team Providers Care Pulmonologist Name Role Phone Scott Oneill MD Primary Care Provider [phone] Tavo Mishra MD Unavailable [phone] Kev Moser MD Unavailable [phone] Allergies No known active allergies Medications Calcium [...] 2 times daily. Active ergocalciferol (VITAMIN D) 50724 UNIT Capsule Take 50,000 Units by mouth once a week. Active cyanocobalamin 1000 MCG Tablet Take 1 tablet by mouth daily 30 Tab 07/25/19 19 Active Additional Information Patient not taking.Reported on 10/27/2024 traMADol (ULTRAM) 50 MG Tablet 0 06/18/19 [...] mg by mouth daily. 06/17/19 25 Active NEOMYCIN-POLYMYXIN -HC, OTIC, 1 % Solution INSTILL 4 DROPS INTO AFFECTED EAR(S) BY OTIC ROUTE 3 TIMES PER DAY Active SV Iron 325 (65 Fe) MG TabletIndications: Other autoimmune hemolytic anemia,Anemia in stage 3a chronic kidney disease (HCC),Iron deficiency anemia due to sideropenic dysphagia Take 1 tablet by mouth once daily 30 Tablet 2 10/07/19 25 Active apixaban (ELIQUIS) 5 MG TabletIndications: History of Thromboembolic Disease Take 1 Tablet by mouth 2 times daily. Indications: History of Disease involving a Thrombosis or an Embolism 10/28/19 25 Active apixaban (ELIQUIS) 5 MG TabletIndications: History of Thromboembolic Disease Take 1 Tablet by mouth 2 times daily. Indications: History of Disease involving a Thrombosis or an Embolism 56 Tablet 09/02/19 25 025 Discontinu ed(Duplica te Therapy) apixaban (ELIQUIS) 5 MG TabletIndications: History of Thromboembolic Disease Take 1 Tablet by mouth 2 times daily. Indications: History of Disease involving a Thrombosis or an Embolism 09/30/19 25 025 Discontinu ed(Duplica te Therapy) predniSONE (DELTASONE) 5 MG Tablet Take by mouth. 10/19/19 25 025 Active Problems Patient Care Coordination [...] Encounters Date Type Department Care Team Description 10/27/2024 11:30 AM CDT Clinical Support [facility] [address] [address] Nurse, [facility] [place] Vitamin B 12 deficiency (Primary Dx) 10/27/2024 11:15 AM CDT Office Visit [facility] [address] [address] Sindi Qiu, PLATE DRYING MACHINE TENDER, UPPER AND BOTTOM LACER HAND Other autoimmune hemolytic anemia (Primary Dx); Anemia in stage 3a chronic kidney disease (HCC); Iron deficiency anemia due to sideropenic dysphagia; Vitamin B 12 deficiency 10/27/2024 11:05 AM CDT Lab [facility] [address] [address] Lab, [facility] [place] Anemia in stage 3a chronic kidney disease (HCC); Iron deficiency anemia due to sideropenic dysphagia; Vitamin B 12 deficiency 10/27/2024 Travel 10/06/2024 Refill [facility] [address] [address] Sindi Qiu, PLATE DRYING MACHINE TENDER, UPPER AND BOTTOM LACER HAND Medication Refill 09/29/2024 11:15 AM CDT Clinical Support [facility] [address] [address] Nurse, [facility] [place] Vitamin B 12 deficiency (Primary Dx) 09/29/2024 11:00 AM CDT Lab [facility] [address] [address] Lab, [facility] [place] Anemia in stage 3a chronic kidney disease (HCC); Iron deficiency anemia due to sideropenic dysphagia; Vitamin B 12 deficiency 09/29/2024 Travel 09/07/2024 Refill [facility] [address] [phone] Kev Moser MD Medication Refill 09/01/2024 11:30 AM CDT Clinical Support [facility] [address] [phone] Nurse, [facility] [place] Vitamin B 12 deficiency (Primary Dx) 09/01/2024 11:15 AM CDT Office Visit [facility] [address] [phone] Tanvi Tobar APRN, UPPER AND BOTTOM LACER HAND Anemia in stage 3a chronic kidney disease (HCC) (Primary Dx); Iron deficiency anemia due to sideropenic dysphagia; Vitamin B 12 deficiency 09/01/2024 11:00 AM CDT Lab [facility] [address] [phone] Lab, [facility] [place] Anemia in stage 3a chronic kidney disease (HCC); Other autoimmune hemolytic anemia; Vitamin B 12 deficiency; Iron deficiency anemia due to sideropenic dysphagia 09/01/2024 Travel from Last 3 Months Immunizations Immunization [...] on file 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 Gender Identity Not on file Sexual Orientation Not on file Last Filed Vital Signs Vital Sign Reading Time Taken Comments Blood Pressure 124/60 10/27/2024 11:09 AM CDT Pulse 61 10/27/2024 11:09 AM CDT Temperature 36.8 C (98.3 F) 10/27/2024 11:09 AM CDT Respiratory Rate 18 10/27/2024 11:0 9 AM CDT Oxygen Saturation 94% 10/27/2024 11: 09 AM CDT Inhaled Oxygen Concentration - - Weight 107.7 kg (237 lb 6.4 oz) 025 11:09 AM CDT Height 165.1 cm (5' 5) 10/27/2024 11:0 9 AM CDT Body Mass Index 39.51 10/27/2024 11:09 AM CDT Plan of Treatment Upcoming Encounters Date Type Department Care Team (Late st Contact Info) Description 12/08/2024 11:00 AM CDT Lab [facility] [address] [phone] Lab, [facility] 12/08/2024 11:15 AM CDT Office Visit [facility] [address] [phone] Kev Moser MD [address] [place] [phone] 12/08/2024 11:30 AM CDT Clinical Support [facility] [address] [phone] Nurse, [facility] Health Maintenance Due Date Last Done Comments Hepatitis C Virus (HCV) Screening 1955 TdaP Immunization 1954 Zoster Immunization (1 of 2) 1973 Cologuard 1999 Immunochemical Fecal Occult Blood 1999 Respiratory Syncytial Virus (RSV) Immunization (Adult) (1 - Risk 60-74 years 1-dose series) 2014 AAA Screening Ultrasound 2019 Pneumococcal Immunization (50+ years) (2 of 2 - PPSV23, PCV20, or PCV21) 04/06/2021 02/09/2021 SARS-COV-2 Immunization ( - season) 2023 02/09/2021, 07/11/2020, 05/13/2020, Additional history exists Influenza Immunization (#1) 2024 10/0 03/2021, 02/21/2021, 02/09/2021, Additional history exists Lung Cancer Screening 02/04/2025 02/05/2024 Colonoscopy 10/19/2031 10/18/2021, 10/18/2021 Colorectal Cancer Screening 10/19/2031 Pneumococcal Immunization Combined Discontinued 02/09/2021 Hepatitis B [...] COMPLETE BLOOD COUNT (CBC) WITH DIFF Routine 10/27/2024 10:54 AM CDT Anemia in stage 3a chronic kidney disease (HCC) Iron deficiency anemia due to sideropenic dysphagia Vitamin B 12 deficiency URINALYSIS WITH MICROSCOPIC [place] Routine 09/29/2024 10:34 AM CDT ANCA (VASCULITIS) [place], [place] [id number] Routine 09/29/2024 10:34 AM CDT CULTURE, URINE Routine 09/29/2024 10:34 AM CDT COMPLETE BLOOD COUNT (CBC) WITH DIFF Routine 09/29/2024 10:29 AM CDT Anemia in stage 3a chronic kidney disease (HCC) Iron deficiency anemia due to sideropenic dysphagia Vitamin B 12 deficiency CMP (COMPREHENSIVE METABOLIC PANEL) Routine 09/29/2024 10:29 AM CDT Anemia in stage 3a chronic kidney disease (HCC) Iron deficiency anemia due to sideropenic dysphagia Vitamin B 12 deficiency VITAMIN B12 Routine 09/29/2024 10:29 AM CDT Anemia in stage 3a chronic kidney disease (HCC) Iron deficiency anemia due to sideropenic dysphagia Vitamin B 12 deficiency IRON W/ IRON BINDING CAPACITY [place] Routine 09/29/2024 10:29 AM CDT Anemia in stage 3a chronic kidney disease (HCC) Iron deficiency anemia due to sideropenic dysphagia Vitamin B 12 deficiency FERRITIN Routine 09/29/2024 10:29 AM CDT Anemia in stage 3a chronic kidney disease (HCC) Iron deficiency anemia due to sideropenic dysphagia Vitamin B 12 deficiency FOLIC ACID (FOLATE) Routine 09/29/2024 1 0:29 AM CDT Anemia in stage 3a chronic kidney disease (HCC) Iron deficiency anemia due to sideropenic dysphagia Vitamin B 12 deficiency COMPLETE BLOOD COUNT (CBC) WITH DIFF Routine [...] anemia due to sideropenic dysphagia FERRITIN Routine 09/01/2024 10:45 AM CDT Anemia in stage 3a chronic kidney disease (HCC) Other autoimmune hemolytic anemia Vitamin B 12 deficiency Iron deficiency anemia due to sideropenic dysphagia VITAMIN B12 Routine 09/01/2024 10:45 AM CDT Anemia in stage 3a chronic kidney disease (HCC) Other autoimmune hemolytic anemia Vitamin B 12 deficiency Iron deficiency anemia due to sideropenic dysphagia from Last 3 Months Results * (ABNORMAL) COMPLETE BLOOD COUNT (CBC) WITH DIFF (10/27/2024 10:54 AM CDT) Only the most recent of3 resultswithin the time period is included. WBC 8.5 4.0 - 10.0 10*3/uL [facility]HER EDUCATION ADMINISTRATOR [facility] HGB 10.6(L) 13.7 - 17.5 g/dL [facility] HIGHER EDUCATION ADMINISTRATOR [facility] HCT 34.3(L) 40.1 - 51.0 % [facility] PLT 150(L) 163 - 369 10*3/uL [facility] MPV 9.9 9.4 - 12.4 fL [facility]IGHER EDUCATION ADMINISTRATOR [facility] RBC 3.72(L) 4.63 - 6.08 10*6/uL [facility] MCV 92 79 - 95 fL [facility]IGHER EDUCATION ADMINISTRATOR [facility] MCH 28.5 25.6 - 32.2 pg [facility]IGHER EDUCATION ADMINISTRATOR [facility] MCHC 30.9(L) 32.2 - 36.5 g/dL [facility] RDW 15.0(H) 11.6 - 14.4 % [facility]IGHER EDUCATION ADMINISTRATOR [facility] Absolute Neutrophil Count 6,599 cells/uL [facility] Absolute Seg Count 6,599 1,440 - 6,600 cells/uL [facility] Absolute Lymph Count 1,100 760 - 4,000 cells/uL [facility] HIGHER EDUCATION ADMINISTRATOR [facility] Absolute Kaufman Count 508 160 - 1,200 cells/uL [facility] Absolute Eos Count 254 0 - 300 cells/uL [facility] Segmented Neutrophils 78(H) 36 - 66 % [facility]IGHER EDUCATION ADMINISTRATOR [facility] Lymphocytes 13(L) 19 - 40 % [facility] Monocytes 6 4 - 12 % [facility] Eosinophils 3 0 - 3 % [facility] WBC Estimate Normal [facility]IGHER EDUCATION ADMINISTRATOR [facility] Platelet Estimate Low [facility]IGHER EDUCATION ADMINISTRATOR [facility] RBC Morphology Abnormal CANCE R HIGHER EDUCATION ADMINISTRATOR [facility] Anisocytosis 1+ [facility] HIGHER EDUCATION ADMINISTRATOR [facility] Large Platelets Present [facility] Blood 10/27/2024 10:5 4 AM CDT [facility] - 10/27/2024 1:36 PM CDT Release to patient->Immediate Tanvi Tobar PLATE DRYING MACHINE TENDER, UPPER AND BOTTOM LACER HAND HEMATOLOGY ORDERABLES Final Result [facility] HIGHER EDUCATION ADMINISTRATOR [facility] [place] [address], * ANCA (VASCULITIS) [place], [place] [id number] (09/29/2024 10:34 AM CDT) ANTI-MPO ANTIBODIES 0.2 0.0 - 0.9 UNITS [facility] ANTI-PR3 ANTIBODIES <0.2 0.0 - 0.9 UNITS [facility] CYTOPLASMIC (C-ANCA) <1:20 NEG:<1:20 TITER [facility] PERINUCLEAR (P-ANCA) <1:20 NEG:<1:20 TITER [facility] Comment: THE PRESENCE OF POSITIVE FLUORESCENCE EXHIBITING [...] PATHOL 1999;111:[id number]. ATYPICAL PANCA <1:20 NEG:<1:20 TITER [facility] Comment: THE ATYPICAL PANCA PATTERN HAS BEEN OBSERVED IN A SIGNIFICANT PERCENTAGE OF PATIENTS WITH ULCERATIVE COLITIS, PRIMARY SCLEROSING CHOLANGITIS AND AUTOIMMUNE HEPATITIS. 09/29/2024 10:3 4 AM CDT [facility] - 10/04/2024 8:07 PM CDT TESTING PERFORMED AT: [] [facility] [address], [address], PHONE: [phone], INTERMEDIATE TEACHER: SHOAIB OCAMPO MD TESTING PERFORMED AT: [CB] [facility] [address], [place], [address], PHONE: [phone], INTERMEDIATE TEACHER: NAVEEN VEGA, PHD Tiffanie Weiss MD LAB SEND OUTS Final Result [facility]IGHER EDUCATION ADMINISTRATOR [facility] [place] [address], [place] [phone] * (ABNORMAL) URINALYSIS WITH MICROSCOPIC [place] (09/29/2024 10:34 AM CDT) Urine Color Light Yellow Straw-Yel low [facility] Urine Clarity Clear Clear [facility] EDUCATION ADMINISTR[facility] Urine Glucose NEG NEG mg/dL [facility]IGHER EDUCATION ADMINISTRATOR [facility] Urine Bilirubin NEG NEG mg/dL [facility] ER HIGHER EDUCATION ADMINISTRATOR [facility] Urine Ketones NEG NEG mg/dL [facility]IGHER EDUCATION ADMINISTRATOR [facility] Urine Specific Candler 1.010(L) 1.015 - 1.020 [facility]IGHER EDUCATION ADMINISTRATOR [facility] Urine Blood NEG NEG mg/L [facility] Urine pH 5.0 5.0 - 8.0 [pH] [facility]HER EDUCATION ADMINISTRATOR [facility] Urine Protein NEG NEG mg/dL [facility]IGHER EDUCATION ADMINISTRATOR [facility] Urine Urobilinogen 0.2 0.2 - 1.0 mg/dL [facility] EDUCATION ADMINISTR[facility] Urine Nitrite NEG NEG [facility] EDUCATION ADMINISTRATOR [facility] Urine Leukocytes NEG NEG [facility] HIGHER EDUCATION ADMINISTRATOR [facility] Urine Epithelial Cells Rare None,Rare ,Few /LPF [facility]HER EDUCATION ADMINISTRATOR [facility] Urine Mucus None None /LPF [facility] Urine Cast None None /LPF [facility] CE [facility] Urine Bacteria Rare(A) None /HPF CANCE R HIGHER EDUCATION ADMINISTRATOR OF [facility] Urine Crystal None None /LPF [facility]IGHER EDUCATION ADMINISTRATOR [facility] Urine White Blood Cells 0-4 0 - 4 /HPF [facility]IGHER EDUCATION ADMINISTRATOR [facility] Urine Red Blood Cells 0-2 0 - 2 /HPF [facility]IGHER EDUCATION ADMINISTRATOR [facility] 09/29/2024 10:3 4 AM CDT Tiffanie Weiss MD LAB SEND OUTS Final Result [facility] Cancer Care [address] [place] [address], [place] [phone] * (ABNORMAL) CULTURE, URINE (09/29/2024 10:34 AM CDT) URINE CULTURE, ROUTINE FINAL REPORT(A) [facility] RESULT 1 ESCHERICHIA COLI(A) [facility] Comment: CEFAZOLIN WITH AN JOSE <=16 PREDICTS SUSCEPTIBILITY TO THE ORAL AGENTS CEFACLOR, CEFDINIR, CEFPODOXIME, CEFPROZIL, CEFUROXIME, CEPHALEXIN, AND LORACARBEF WHEN USED FOR THERAPY OF UNCOMPLICATED URINARY TRACT INFECTIONS DUE TO E. COLI, KLEBSIELLA PNEUMONIAE, AND PROTEUS MIRABILIS. 25,000-50,000 COLONY FORMING UNITS PER ML ANTIMICROBIAL SUSCEPTIBILITY COMMENT [facility] Comment: S = SUSCEPTIBLE; I = INTERMEDIATE; R = RESISTANT P = POSITIVE; N = NEGATIVE MICS ARE EXPRESSED IN MICROGRAMS PER ML ANTIBIOTIC RSLT#1 RSLT#2 RSLT#3 RSLT#4 AMOXICILLIN/CLAVULANIC ACID S AMPICILLIN S CEFAZOLIN S CEFEPIME S CEFOXITIN S CEFPODOXIME S CEFTRIAXONE S CIPROFLOXACIN S ERTAPENEM S GENTAMICIN S LEVOFLOXACIN S MEROPENEM S NITROFURANTOIN S PIPERACILLIN/TAZOBACTAM S TETRACYCLINE S TOBRAMYCIN S TRIMETHOPRIM/SULFA S 09/29/2024 10:3 4 AM CDT Narrative [facility] - 10/02/2024 8:17 PM CDT TESTING PERFORMED AT: [] [facility], [address] [place] [address], [place], [address], PHONE: [phone], INTERMEDIATE TEACHER: NAVEEN VEGA, PHD Tiffanie Weiss MD MICROBIOLOGY - GENERAL ORDERABLE S Final Result Performing Organization Address City/[facility]/ZIP Co de Phone Number [facility] [place] [address] [place] [address], * IRON W/ IRON BINDING CAPACITY [place] (09/29/2024 10:29 AM CDT) Only the most recent of2 resultswithin the time period is included. IRON 79 50 - 212 ug/dL [facility] UIBC 182 155 - 355 ug/dL [facility] TIBC 261 261 - 478 ug/dl [facility] % Saturation 30 20 - 50 % [facility]IGHER EDUCATION ADMINISTRATOR [facility] 09/29/2024 10:2 9 AM CDT [facility] - 09/29/2024 11:29 AM CDT Release to patient->Immediate Tanvi Tobar APRN, UPPER AND BOTTOM LACER HAND LAB SEND OUTS Final Result [facility] [place] [address] [place] [address], * VITAMIN B12 (09/29/2024 10:29 AM CDT) Only the most recent of2 resultswithin the time period is included. Vitamin B12 539 180 - 914 pg/mL [facility] Blood 09/29/2024 10:2 9 AM CDT [facility] - 09/30/2024 2:54 PM CDT Release to patient->Immediate Tanvi Tobar APRN, UPPER AND BOTTOM LACER HAND CHEMISTRY ORDERABLES Final Result [facility] Cancer Care [place] [address] [place] [address], * FOLIC ACID (FOLATE) (09/29/2024 10:29 AM CDT) Folate 10.53 >=5.90 ng/mL [facility] Blood 09/29/2024 10:2 9 AM CDT [facility] - 09/30/2024 2:54 PM CDT Release to patient->Immediate IS THE PATIENT REQUIRED TO BE FASTING FOR 12 HOURS?->No Tanvi Tobar PLATE DRYING MACHINE TENDER, UPPER AND BOTTOM LACER HAND CHEMISTRY ORDERABLES Final Result Performing Organization Address [facility] Co de Phone Number [facility] [place] [address], * (ABNORMAL) FERRITIN (09/29/2024 10:29 AM CDT) Only the most recent of2 resultswithin the time period is included. Ferritin 436(H) 24 - 336 ng/mL [facility] Blood 09/29/2024 10:2 9 AM CDT [facility] - 09/30/2024 2:54 PM CDT Release to patient->Immediate Tanvi Tobar PLATE DRYING MACHINE TENDER, UPPER AND BOTTOM LACER HAND CHEMISTRY ORDERABLES Final Result Performing Organization Address [facility] de Phone Number [facility] [place] [address], * (ABNORMAL) CMP (COMPREHENSIVE METABOLIC PANEL) (09/29/2024 10:29 AM CDT) Only the most recent of2 resultswithin the time period is included. Glucose 98 70 - 105 mg/dL [facility] Blood Urea Nitrogen 43(H) 7 - 25 mg/dL [facility] Creatinine 2.6(H) 0.7 - 1.3 mg/dL [facility] Sodium 133(L) 136 - 145 mEq/L [facility] Potassium 4.8 3.5 - 5.1 mEq/L [facility] Chloride 105 98 - 107 mEq/L [facility] Bicarbonate 22 21 - 31 mEq/L [facility] Total Bilirubin 0.6 0.3 - 1.0 mg/dL [facility] Alk. Phosphatase 78 34 - 104 U/L [facility] Aspartate Aminotransferase 10(L) 13 - 39 U/L [facility] Alanine Aminotransferase 16 7 - 52 U/L [facility] Total Protein 6.1(L) 6.4 - 8.9 g/dL [facility] Albumin 4.2 3.5 - 5.7 g/dL [facility] Calcium 8.2(L) 8.6 - 10.3 mg/dL [facility] Anion Gap 10.8 7.0 - 15.0 mEq/L [facility] Globulin 1.9(L) 2.0 - 3.5 g/dL [facility] EGFR 26(L) >60 ml/min/1. 73m2 [facility] Comment: This eGFR is calculated using 2020 CKD-EPI Creatinine equation without race modifier based on the NKF-ASN task force recommendations Equation: iIDA=731*min(SCr/k,1)a*max(SCr/k,1)-1.200*0.9938Age*1.012 (if female), where SCr is serum creatinine, k is 0.7 for females and 0.9 for males, and a is -0.241 for females and -0.302 for males Blood 09/29/2024 10:2 9 AM CDT Narrative [facility] - 09/29/2024 11:29 AM CDT Release to patient->Immediate IS THE PATIENT REQUIRED TO BE FASTING FOR 8 HOURS?->No us Tanvi Tobar PLATE DRYING MACHINE TENDER, UPPER AND BOTTOM LACER HAND CHEMISTRY ORDERABLES Final Result [facility] HIGHER EDUCATION ADMINISTRATOR [facility] [place] [address], from Last 3 Months Insurance MEDICARE Member Subscriber Plan / Payer ( fective 2019-Present) Name:Britton Nielsen Member ID:[id number] Relation to Subscriber:Self Name:Britton Nielsen Subscriber ID:[id number] Payer ID:[id number] Group ID:Not on file Type:Not on file Address: [address] [employer] [place] [id number] MEDICARE Member Subscriber Plan / Payer ( fective 2019-Present) Name:Britton Nielsen Member ID:[id number] Relation to Subscriber:Self Name:Britton Nielsen Subscriber ID:[id number] Payer ID:[id number] Group ID:Not on file Type:Not on file Address: [address] [employer] [place] [id number] [facility] Care Teams Pulmonologist Relationship Specialty Start Date End Date Scott Oneill MD PCP - General Internal Medicine 04/29/17 Tavo Mishra MD [address] [place] [address] Internal Medicine 04/29/17 Kev Moser MD [address] [place] [address] Consulting Physician Oncology 02/09/20
--- OUTSIDE RECORDS SUMMARY | 2024-11-11 09:37 | XMS_ITS | Encounter Summary ---
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
--- OUTSIDE RECORDS SUMMARY | 2024-11-11 09:37 | XMS_ITS | Encounter Summary ---
Author Organization [facility] Address [address] [place] [address] Phone Care Team Providers Care Recreation Coordinator Name Role Phone Scott Oneill MD Primary Care Provider [phone] Tavo Mishra MD Unavailable [phone] Gilmer Barnard MD Unavailable [phone] Kev Moser MD Unavailable [phone] Reason for Visit * Reason Comments Medication Refill Encounter Details Date Type Department Care Team (Late st Contact Info) Description 07/27/2023 Refill [facility] [address] [address] Kev Moser MD [address] [place] [phone] Medication Refill Social History Tobacco Use [...] on file 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 Gender Identity Not on file Sexual [...] CDT Lab [facility] [address] [phone] Lab, [facility] 12/08/2024 11:15 AM CDT Office Visit [facility] [address] [phone] Kev Moser MD [address] [place] [phone] 12/08/2024 11:30 AM CDT Clinical Support [facility] [address] [phone] Nurse, [facility] documented as of this encounter Visit Diagnoses Not on filedocumented in this encounter Additional Health Concerns Assessment Noted Time PHQ-9 Depression Total Score: 0 11/25/19 11:34 AM CDT documented as of this encounter Care Teams Recreation Coordinator Relationship Specialty Start Date End Date Scott Oneill MD PCP - General Internal Medicine 04/29/17 Tavo Mishra MD [address] [place] [address] [phone] Internal Medicine 04/29/17 Gilmer Barnard MD [address] [place] [address] [phone] Consulting Physician Internal Medicine 08/28/17 4 Kev Moser MD [address] [place] [phone] Consulting Physician Oncology 02/09/20 documented as of this encounter
--- OUTSIDE RECORDS SUMMARY | 2024-11-11 09:37 | XMS_ITS | Clinical Summary ---
Author Organization [facility] Address [address] [place] [address] Care Team Providers Care Gang Drill Press Operator Name Role Phone Scott Oneill MD Primary Care Provider [phone] Allergies No known active allergies Medications atorvastatin [...] on file Legal Sex Male 9:59 AM ARMORED MACHINE OPERATOR Gender Identity Not on file Sexual Orientation Not on file Last Filed Vital Signs Vital Sign Reading Time Taken Comments Blood Pressure 146/58 05/02/2017 10:20 AM ARMORED MACHINE OPERATOR Pulse 103 05/02/2017 10:20 AM ARMORED MACHINE OPERATOR Temperature 36.9 C (98.5 F) 05/02/2017 10:20 AM ARMORED MACHINE OPERATOR Respiratory Rate 18 05/02/2017 10:20 AM ARMORED MACHINE OPERATOR Oxygen Saturation - - Inhaled Oxygen Concentration - - Weight 97.1 kg (214 lb) 05/02/2017 10:20 AM ARMORED MACHINE OPERATOR Height 166.4 cm (5' 5.5) 05/02/2017 10:20 AM CS T Body Mass Index 35.07 05/02/2017 10:20 AM ARMORED MACHINE OPERATOR Plan of Treatment Health Maintenance [...] years 1-dose series) 2014 INFLUENZA VACCINE (#1) 2024 Insurance [facility] BLUE ACCESS CHOICE Care Teams Gang Drill Press Operator Relationship Specialty Start Date End Date Scott Oneill MD [address] [phone] PCP - General Internal Medicine 05/02/17
--- OUTSIDE RECORDS SUMMARY | 2024-11-11 09:37 | XMS_ITS | Encounter Summary ---
Author Organization [facility] Address [address] [place] [address] Phone Care Team Providers Care Dynamite Packing Machine Operator Name Role Phone Scott Oneill MD Primary Care Provider [phone] Tavo Mishra MD Unavailable [phone] Gilmer Barnard MD Unavailable [phone] Kev Moser MD Unavailable [phone] Reason for Visit * Reason Comments Medication Refill Encounter Details Date Type Department Care Team (Late st Contact Info) Description 08/26/2023 Refill [facility] [address] [phone] Kev Moser MD [address] [place] [phone] Medication Refill Social History Tobacco Use [...] on file 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 documented as of this encounter Visit Diagnoses Not on filedocumented in this encounter Additional Health Concerns Assessment Noted Time PHQ-9 Depression Total Score: 0 11/25/19 11:34 AM CDT documented as of this encounter Care Teams Dynamite Packing Machine Operator Relationship Specialty Start Date End Date Scott Oneill MD PCP - General Internal Medicine 04/29/17 Tavo Mishra MD [address] [place] [address] [phone] Internal Medicine 04/29/17 Gilmer Barnard MD [address] [place] [address] [phone] Consulting Physician Internal Medicine 08/28/17 4 Kev Moser MD [address] [place] [phone] Consulting Physician Oncology 02/09/20 documented as of this encounter
--- OUTSIDE RECORDS SUMMARY | 2024-11-11 09:37 | XMS_ITS | Clinical Summary ---
Author Organization [facility] [address] Address [address] [place] [address] Care Team Providers Care Milieu Counselor Name Role Phone Scott Oneill MD Primary Care Provider [phone] Allergies No known active allergies Medications potassium [...] TAKE AFTER DIALYSIS ON DIALYSIS DAYS Active hydroCHLOROthia zide (HYDRODIURIL) 25 mg tablet Take 1 tablet (25 mg total) by mouth daily 06/17/19 25 Active neomycin-polymy randell-HC (CORTISPORIN) otic solution INSTILL 4 DROPS INTO AFFECTED EAR(S) BY OTIC ROUTE 3 TIMES PER DAY Active cyclobenzaprine (FLEXERIL) 5 mg tabletIndicatio ns:Muscle spasms of both lower extremities Take 1 tablet (5 mg total) by mouth 2 (two) times a day as needed for muscle spasms (muscle pain) 20 tablet 09/07/19 25 Active mycophenolate mofetil (CELLCEPT) 500 mg tablet Take 1 tablet by mouth twice daily 60 tablet 10/19/19 25 Active methylPREDNISol one (MEDROL DOSEPACK) 4 mg Dosepack TAKE BY MOUTH DIRECTED ON INSIDE OF PACKAGE 03/15/20 24 025 Discontinued(Al ternate therapy) mycophenolate mofetil (CELLCEPT) 500 mg tablet Take 1 tablet by mouth twice daily 60 tablet 09/23/19 25 025 Discontinued ciprofloxacin (CIPRO) 250 mg tabletIndicatio ns:Urinary Tract/Genitouri nary Infection Take 1 tablet (250 mg total) by mouth 2 (two) times a day for 5 days 10 tablet 10/13/19 25 025 predniSONE (DELTASONE) 5 mg tablet Take 4 tablets (20 mg) by mouth daily for 4 days, THEN 3 tablets (15 mg) daily for 4 days, THEN 2 tablets (10 mg) daily for 4 days, THEN 1 tablet (5 mg) daily for 4 days. 40 tablet 10/19/19 25 025 Active Problems Problem Noted Date Diagnosed Date [...] Encounters Date Type Department Care Team Description 09/07/2024 2:00 PM CDT Office Visit [facility] 5th [place] [address] [place] [address] Tiffanie Weiss MD Microscopic polyangiitis (HCC) (Primary Dx); Interstitial lung disease (HCC); High risk medication use; Low back pain, unspecified back pain laterality, unspecified chronicity, unspecified whether sciatica present 09/03/2024 Orders Only [facility] 8th [place] [address] [place] [address] Rivera Veras MD 09/03/2024 Documentation [facility] [address] [facility] 8th [place] [address] [place] [address] Marce Bernal MD Labs Only 09/01/2024 Telephone [facility] 8th [place] [address] [place] [address] Margret Cobb CMA 08/27/2024 Orders Only [facility] Pul[facility] [address] [facility] 8th [place] [address] [place] [address] ProviderRivera MD 08/27/2024 Documentation [facility] Pul[facility] [address] [facility] 8th [place] [address] [place] [address] Marce Bernal MD Test Results from Last 3 Months Surgical History Surgery Date Site/Laterality Comments CARDIAC CATHETERIZATION 06/08/2020 CORONARY ARTERY BYPASS GRAFT 06/12/2020 CABG X3 SKIN CANCER EXCISION 03/31/2003 - 03/30/2004 Medical History Medical History Date Comments Hypertension Overweight Hyperlipidemia Renal failure Arthritis DVT (deep venous thrombosis) Skin cancer History of transfusion Sleep apnea [...] on file Legal Sex Male 1:23 AM BIOMED TECH Gender Identity Male 12/24/2023 11:25 AM CDT Sexual Orientation Straight 12/24/2023 11 :25 AM CDT 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 Start Date Job End Date [employer], 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, 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 Not on file Not on file Not on file Obstetrics History Last Filed Vital Signs Vital Sign Reading Time Taken Comments Blood Pressure 133/67 09/07/2024 2:02 PM CDT LA 132/73 Pulse 72 09/07/2024 2:02 PM CDT Temperature 36.4 C (97.6 F) 09/07/2024 2:02 PM CDT Respiratory Rate 18 08/05/2024 2:30 PM CDT Oxygen Saturation 96% 08/05/2024 2:3 0 PM CDT on 2 liters PRN and nighlty Inhaled Oxygen Concentration - - Weight 103.1 kg (227 lb 4.8 oz) 09/07/2024 2:02 PM CDT Height 165.1 cm (5' 5) 09/07/2024 2:02 PM CDT Body Mass Index 37.82 09/07/2024 2:02 PM CDT Plan of Treatment Health Maintenance Due Date Last Done Comments Colon Cancer Screening-Colonoscopy 1955 Depression Screening 1955 Hepatitis C Screening 1955 DTaP/Tdap/Td Vaccine (1 - Tdap) 1965 Hepatitis B Screening 02/14/1972 Zoster Vaccine (1 of 2) 1973 Pneumococcal vaccine 65+ (2 of 2 - PPSV23, PCV20, or PCV21) 06/26/2017 05/01/2017 Abdominal Aortic Aneurysm (A AA) Screen 2019 Well Visit 65+ 2019 Covid-19 Vaccine (3 - Modern a risk series) 08/08/2020 07/11/2020, 05/13/2020 Fall Risk Assessment 07/19/2021 07/19/2020 Influenza Vaccine (#1) 2024 2, 02/21/2021, 05/13/2020, Additional history exists Procedures Procedure Name Priority Date/Time Associated Diagnosis Comments CBC WITHOUT DIFFERENTIAL Routine 09/03/2024 10:17 AM CDT TRANSTHORACIC ECHO (TTE) COMPLETE W DOPPLER/CF Routine 08/27/2024 1:12 PM CDT ERYTHROCYTE SEDIMENTATION RATE Routine 08/24/2024 Elevated sed rate High risk medication use Interstitial lung disease (HCC) CRP (ACUTE PHASE) Routine 08/24/2024 Elevated sed rate High risk medication use Interstitial lung disease (HCC) from Last 3 Months Results * CBC without differential (09/03/2024 10:17 AM CDT) Blood Historical Provider LAB BLOOD ORDERABLES Devorah l Result * Transthoracic Echo (TTE) Complete W Doppler/CF (08/27/2024 1:12 PM CDT) Anatomical Region Laterality Modality Ultrasound Historical Provider CV ECHO PROCEDURES Final Result * (ABNORMAL) Erythrocyte sedimentation rate (08/24/2024) SCRIBED ESR 24(A) 0 - 20 mm/hr EXTERNAL LAB Blood 08/24/2024 Result [facility] Tiffanie Weiss MD LAB BLOOD ORDERABLES Final Resul t EXTERNAL LAB * CRP (acute phase) (08/24/2024) SCRIBED CRP <0.5 <1.0 - <1.0 mg/L EXTERNAL LAB Blood 08/24/2024 Result [facility] Tiffanie Weiss MD LAB BLOOD ORDERABLES Final Resul t EXTERNAL LAB from Last 3 Months Insurance MEDICARE [facility] MEDICARE Advance Directives For more information, please contact: [phone] * Full Code (Latest Code Status on File) Date Activated Date Inactivated Comments 07/17/2020 8:05 PM 07/19/2020 7:41 PM * Full Code Date Activated Date Inactivated Comments 06/08/2020 6:02 PM 06/15/2020 7:20 PM Healthcare Agents on File Name Relationship Healthcare Agent Relationship Communication Shyann Nielsen Spouse First Alternat e Health Care Agent Care Teams Milieu Counselor Relationship Specialty Start Date End Date Scott Oneill MD PCP - General Internal Medicine 04/27/20
--- OUTSIDE RECORDS SUMMARY | 2024-11-11 09:37 | XMS_ITS | Encounter Summary ---
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 Start Date Job End Date [employer], 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
--- OUTSIDE RECORDS SUMMARY | 2024-11-11 09:37 | XMS_ITS | Encounter Summary ---
Author Organization [facility] Address [address] [place] [address] Phone Care Team Providers Care Automotive Service Manager Name Role Phone Scott Oneill MD Primary Care Provider Tavo Mishra MD Unavailable [phone] Gilmer Barnard MD Unavailable [phone] Kev Moser MD Unavailable Encounter Details Date Type Department Care Team (Late st Contact Info) Description 11/04/2023 Telephone [facility] [address] [place] [address] Kev Moser MD [address] [place] [phone] Social History Tobacco Use Types Packs/Day [...] on file Legal Sex Male 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 Question Answer Date of Assessment Author Patient Health Questionnaire -2 Score 0 10/27/2024 11:09 AM CDT Maia Garza RMA documented as of this encounter Plan of Treatment Upcoming Encounters Date Type Department Care Team (Late st Contact Info) Description 12/08/2024 11:00 AM CDT Lab [facility] [address] [phone] Lab, [facility] 12/08/2024 11:15 AM CDT Office Visit [facility] [address] [phone] Kev Moser MD [address] [place] [phone] 12/08/2024 11:30 AM CDT Clinical Support [facility] [address] [phone] Nurse, [facility] documented as of this encounter Visit Diagnoses Not on filedocumented in this encounter Additional Health Concerns Assessment Noted Time PHQ-9 Depression Total Score: 0 11/25/19 11:34 AM CDT documented as of this encounter Care Teams Automotive Service Manager Relationship Specialty Start Date End Date Scott Oneill MD PCP - General Internal Medicine 04/29/17 Tavo Mishra MD [address] [address] Internal Medicine 04/29/17 Gilmer Barnard MD [address] [address] Consulting Physician Internal Medicine 08/28/17 4 Kev Moser MD [address] [place] [address] Consulting Physician Oncology 02/09/20 documented as of this encounter
--- OUTSIDE RECORDS SUMMARY | 2024-11-11 09:37 | XMS_ITS | Encounter Summary ---
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
--- OUTSIDE RECORDS SUMMARY | 2024-11-11 09:37 | XMS_ITS | Encounter Summary ---
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
--- OUTSIDE RECORDS SUMMARY | 2024-11-11 09:37 | XMS_ITS | Encounter Summary ---
Author Organization [facility] Address [address] [place] [address] Phone Care Team Providers Care Cook Mayonnaise Name Role Phone Scott Oneill MD Primary Care Provider Tavo Mishra MD Unavailable [phone] Gilmer Barnard MD Unavailable [phone] Kev Moser MD Unavailable Reason for Visit * Reason Comments Medication Refill Encounter Details Date Type Department Care Team (Late st Contact Info) Description 07/01/2023 Refill [facility] [address] [place] [phone] Sindi Qiu, CORPORATE EXECUTIVE, VINEYARD TENDER [address] [place] [address] Medication Refill Social History Tobacco [...] on file Legal Sex Male 3:42 PM COLORER Gender Identity Not on file Sexual Orientation [...] Miscellaneous Notes * Telephone Encounter - Xochitl Cmapos RN - 07/01/2023 11:15 AM CDT Refill request from pharmacy. Please fill if appropriate. documented in this encounter Plan of Treatment Upcoming Encounters Date Type Department Care Team (Late st Contact Info) Description 12/08/2024 11:00 AM CDT Lab [facility] [address] [phone] [facility] 12/08/2024 11:15 AM CDT Office Visit [facility] [address] [phone] Kev Moser MD [address] [place] [phone] 12/08/2024 11:30 AM CDT Clinical Support [facility] [address] [phone] Nurse, [facility] documented as of this encounter Visit Diagnoses Not on filedocumented in this encounter Additional Health Concerns Assessment Noted Time PHQ-9 Depression Total Score: 0 11/25/19 21 11:34 AM CDT documented as of this encounter Care Teams Cook Mayonnaise Relationship Specialty Start Date End Date Scott Oneill MD PCP - General Internal Medicine 04/29/17 Tavo Mishra MD [address] [place] [address] [phone] Internal Medicine 04/29/17 Gilmer Barnard MD [address] [place] [phone] Consulting Physician Internal Medicine 08/28/17 4 Kev Moser MD [address] [place] [phone] Consulting Physician Oncology 02/09/20 documented as of this encounter
--- OUTSIDE RECORDS SUMMARY | 2024-11-11 09:38 | XMS_ITS | Clinical Summary ---
Author Organization [facility] Address [address] [place] [address] Care Team Providers Care Music Copyist Name Role Phone Cee Rios [facility] Primary Care Prov ider Allergies No known [...] daily. 2 Active vitamin D2, ergocalciferol , 99545 UNITS capsule Take 1 capsule (50,000 Units [...] (01/30/2023): Added automatically from request for surgery [id number] Personal history of colonic polyps 01/30/2023 Overview (01/30/2023): Added automatically from request for surgery [id number] Positive colorectal cancer screening using Colog uard test 10/08/2021 Overview (10/08/2021): Added automatically from request for surgery [id number] Family History Medical History Relation Comments cancer,small [...] Comments Blood Pressure 128/53 06/02/2023 9:55 AM PSYCH SOCIAL WORKER Pulse 63 06/02/2023 9:33 AM PSYCH SOCIAL WORKER Temperature 36 C (96.8 F) 06/02/2023 9:26 AM PSYCH SOCIAL WORKER Respiratory Rate 20 06/02/2023 8:33 AM PSYCH SOCIAL WORKER Oxygen Saturation 97% 06/02/2023 10:00 AM PSYCH SOCIAL WORKER Inhaled Oxygen Concentration - - Weight 101.2 kg (223 lb) 05/23/2023 2:05 PM PSYCH SOCIAL WORKER Height 166.4 cm (5' 5.5) 05/23/2023 2:05 PM PSYCH SOCIAL WORKER Body Mass Index 36.54 05/23/2023 2:05 PM PSYCH SOCIAL WORKER Plan of Treatment Health Maintenance Due Date Last Done Comments Hepatitis C 02/14/1972 DTaP, Tdap and Td Vaccines ( 1 - Tdap) 1973 Zoster Vaccines (1 of 2) 02/14/2004 Annual Medicare Wellness Visit 2019 Pneumococcal Vaccine: 50+ Years (2 of 2 - PPSV23) 02/09/2022 02/09/2021, 05/01/2017 COVID-19 Vaccine (4 - 2023-2 5 season) 2023 02/09/2021, 07/11/2020, 05/13/2020 PHQ-2 (Physician [place]) 03/31/2024 01/29/2023 RSV Immunization or 60+ Years [...] Recently Relevant to Health Maintenance Insurance [employer] Address: [address] [address] [facility] Care Teams Music Copyist Relationship Specialty Start Date End Date Cee Rios FNP [address] [place] [address] PCP - General NURSE PRACTITIONER 12/10/22
--- OUTSIDE RECORDS SUMMARY | 2024-11-11 09:38 | XMS_ITS | Encounter Summary ---
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
--- OUTSIDE RECORDS SUMMARY | 2024-11-11 09:38 | XMS_ITS | Clinical Summary ---
Author Organization [facility] Address [address] [place] [address] Phone Care Team Providers Care Computing Services Director Name Role Phone Bia Oneill MD Primary Care Provider [phone] Allergies No known active allergies Medications apixaban [...] 2 Active ergocalciferol (VITAMIN D2) 1.25 MG (96671 UT) capsule Take 1 capsule by mouth [...] Comments Blood Pressure 128/60 02/27/2022 1:41 PM FBI FIELD AGENT Pulse 72 02/27/2022 1:41 PM FBI FIELD AGENT Temperature 36.7 C (98 F) 02/27/2022 1:41 PM FBI FIELD AGENT Respiratory Rate - - Oxygen Saturation - - Inhaled Oxygen Concentration - - Weight 96.2 kg (212 lb) 02/27/2022 1:41 PM FBI FIELD AGENT Height 165.1 cm (5' 5) 02/27/2022 1:41 PM FBI FIELD AGENT Body Mass Index 35.28 02/27/2022 1:41 PM FBI FIELD AGENT Plan of Treatment Health Maintenance Due Date Last Done Comments Pneumococcal PPSV23/PCV13 65 + Years / Low and Medium Risk (1 of 2 - PCV) 02/14/2004 COVID-19 Vaccine (2023-2 5 season) 2023 07/11/2020, 05/13/2020, 05/13/2020 Influenza Vaccine (#1) 2024 , 02/06/2020, 12/27/2019, Additional history exists Insurance MEDICARE [facility] MEDICARE SUPPLEMENT ANDRES NEUMANN [id number] Care Teams Computing Services Director Relationship Specialty Start Date End Date Bia Oneill MD [address] [address] PCP - General Internal Medicine 07/16/18
--- OUTSIDE RECORDS SUMMARY | 2024-11-11 09:38 | XMS_ITS | Encounter Summary ---
Author Organization [facility] Address [address] [place] [address] Phone Care Team Providers Care Pool Installer Name Role Phone Scott Oneill MD Primary Care Provider Tavo Mishra MD Unavailable [phone] Kev Moser MD Unavailable [phone] Reason for Visit * Reason Onset Date Comments canopy call/molded goods spot picker Eliquis samples 05/26/2024 Encounter Details Date Type Department Care Team (Late st Contact Info) Description 05/26/2024 Telephone [facility] [address] [place] [address] Kev Moser MD [address] [place] [phone] canopy call/molded goods spot picker Eliquis samples Social History Tobacco Use [...] on file Legal Sex Male 3:42 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 Question Answer Date of Assessment Author Patient Health Questionnaire -2 Score 0 10/27/2024 11:09 AM CDT Kasey Garzaa A, RMA documented as of this encounter Miscellaneous Notes * Telephone Encounter - Anne Valentin RN - 05/26/2024 2:45 PM INDOOR PLANT TECHNICIAN Pt arrived today to molded goods spot picker samples. OR PLANT TECHNICIAN * Telephone Encounter - Suzie Black RN - 05/26/2024 1:57 PM CST pt called to speak to Fritz regarding Eliquis samples [phone] Spoke with patient he will molded goods spot picker Eliquis samples today by 3pm. OR PLANT TECHNICIAN documented in this encounter Plan of Treatment Upcoming Encounters Date Type Department Care Team (Late st Contact Info) Description 12/08/2024 11:00 AM CDT Lab [facility] [address] [phone] [facility] [place] 12/08/2024 11:15 AM CDT Office Visit [facility] [address] [phone] Kev Moser MD [address] [place] [phone] 12/08/2024 11:30 AM CDT Clinical Support [facility] [address] [phone] Nurse, [place] documented as of this encounter Visit Diagnoses Not on filedocumented in this encounter Additional Health Concerns Assessment Noted Time PHQ-9 Depression Total Score: 0 11/25/19 21 11:34 AM CDT documented as of this encounter Care Teams Pool Installer Relationship Specialty Start Date End Date Scott Oneill MD PCP - General Internal Medicine 04/29/17 Tavo Mishra MD [address] [phone] Internal Medicine 04/29/17 Kev Moser MD [address] [place] [phone] Consulting Physician Oncology 02/09/20 documented as of this encounter
--- OUTSIDE RECORDS SUMMARY | 2024-11-11 09:38 | XMS_ITS | Encounter Summary ---
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
--- OUTSIDE RECORDS SUMMARY | 2024-11-11 09:38 | XMS_ITS | Continuity of Care Document ---
Author Organization [facility] Address [address] [place] [address] Phone Care Team Providers Care Diamond Blender Name Role Phone Renny Garcia Unavailable Unavailable Advance Directives Directive Yes / No Effective Date File Name No Information Encounters Encounter Description Practice Location Reason(s) For Visit Diagnoses Date Provider Providers Copied on Encounter [facility], [address], [place], [place], [id number], [place] tel:[phone] [facility] [place] No Information Dec-0 6-200 [address] Edward. [address] [facility] [place] , [address], [place], [address], [place]. tel:[phone] Family History Family Member Type Diagnosis Age At Onset No Information Payers Payer name Insurance type Covered republican ID Authoriza tion(s) [place] [id number] Social History Type Description Quantity Date Captured [...]
--- OUTSIDE RECORDS SUMMARY | 2024-11-11 09:38 | XMS_ITS | Encounter Summary ---
Author Organization [facility] Address [address] [place] [address] Phone Care Team Providers Care Configuration Technician Name Role Phone Scott Oneill MD Primary Care Provider Kev Prince DO Unavailable [phone] Tavo Mishra MD Unavailable [phone] Gilmer Barnard MD Unavailable [phone] Kev Moser MD Unavailable [phone] Encounter Details Date Type Department Care Team (Late st Contact Info) Description 08/11/2020 Telephone [facility] [address] [place] [address] Kev Moser MD [address] [place] [phone] Social History Tobacco Use Types Packs/Day [...] file Legal Sex Male 3:42 PM ASSOCIATE COUNSEL Gender Identity Not on file Sexual Orientation [...] had labs done Friday this week at [facility]. I have a call out to get those labs faxed over but were there other labs that you needed that [facility] did not draw on Friday? documented in this encounter Plan of Treatment Upcoming Encounters Date Type Department Care Team (Late st Contact Info) Description 12/08/2024 11:00 AM CDT Lab [facility] [address] [phone] Lab, [facility] 12/08/2024 11:15 AM CDT Office Visit [facility] [address] [phone] Kev Moser MD [address] [place] [phone] 12/08/2024 11:30 AM CDT Clinical Support [facility] [address] [phone] Nurse, [facility] documented as of this encounter Visit Diagnoses Not on filedocumented in this encounter Additional Health Concerns Assessment Noted Time PHQ-9 Depression Total Score: 0 08/12/19 21 11:41 AM CDT documented as of this encounter Care Teams Configuration Technician Relationship Specialty Start Date End Date Scott Oneill MD PCP - General Internal Medicine 04/29/17 Kev Prince DO Gastroenterology 04/29/17 12/09/22 Tavo Mishra MD [address] [facility] [address] [place] [phone] Internal Medicine 04/29/17 Gilmer Barnard MD [address] [place] [phone] Consulting Physician Internal Medicine 08/28/17 4 Kev Moser MD [address] [place] [phone] Consulting Physician Oncology 02/09/20 documented as of this encounter
--- OUTSIDE RECORDS SUMMARY | 2024-11-11 09:38 | XMS_ITS | Encounter Summary ---
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
--- OUTSIDE RECORDS SUMMARY | 2024-11-11 09:38 | XMS_ITS | Encounter Summary ---
Author Organization [facility] Address [address] [place] [address] Phone Care Team Providers Care Aluminum Boats Assembler Name Role Phone Bia Oneill MD Primary Care Provider Reason for Visit * Reason Comments Med Refill Encounter Details Date Type Department Care Team (Late st Contact Info) Description 05/27/2021 Refill [facility] Nephrology and Hypertension [address] [facility], [address] [address] Gilmer Barnard MD [address] [facility], [address] [place] [address] Social History Tobacco Use Types Packs/Day Years [...] on file Legal Sex Male 10:04 AM [facility] Gender Identity Not on file Sexual Orientation Not on file documented as of this encounter Plan of Treatment Not on file documented as of this encounter Visit Diagnoses Not on filedocumented in this encounter Care Teams Aluminum Boats Assembler Relationship Specialty Start Date End Date Bia Oneill MD [address] [facility] [address] [place] [address] PCP - General Internal Medicine 07/16/18 documented as of this encounter
--- OUTSIDE RECORDS SUMMARY | 2024-11-11 09:38 | XMS_ITS | Encounter Summary ---
Author Organization [facility] Address [address] [place] [address] Phone Care Team Providers Care Bingo Worker Name Role Phone Scott Oneill MD Primary Care Provider Kev Prince DO Unavailable [phone] Tavo Mishra MD Unavailable [phone] Gilmer Barnard MD Unavailable [phone] Kev Moser MD Unavailable [phone] Encounter Details Date Type Department Care Team (Late st Contact Info) Description 12/31/2019 Telephone [facility] [address] [place] [address] Kev Moser MD [address] [place] [phone] Social History Tobacco Use Types Packs/Day [...] on file 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 Gender Identity Not on file Sexual [...] AM CDT Lab [facility] [address] [phone] Lab, [facility] 12/08/2024 11:15 AM CDT Office Visit [facility] [address] [phone] Kev Moser MD [address] [place] [phone] 12/08/2024 11:30 AM CDT Clinical Support [facility] [address] [phone] Nurse, [facility] documented as of this encounter Visit Diagnoses Not on filedocumented in this encounter Additional Health Concerns Assessment Noted Time PHQ-9 Depression Total Score: 0 10/04/19 20 2:45 PM CDT documented as of this encounter Care Teams Bingo Worker Relationship Specialty Start Date End Date Scott Oneill MD PCP - General Internal Medicine 04/29/17 Kev Prince DO Gastroenterology 04/29/17 12/09/22 Tavo Mishra MD [address] [place] [address] Internal Medicine 04/29/17 Gilmer Banrard MD [address] [place] [address] Consulting Physician Internal Medicine 08/28/17 4 Kev Moser MD [address] [place] [phone] Consulting Physician Oncology 02/09/20 documented as of this encounter
--- OUTSIDE RECORDS SUMMARY | 2024-11-11 09:38 | XMS_ITS | Encounter Summary ---
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
--- OUTSIDE RECORDS SUMMARY | 2024-11-11 09:38 | XMS_ITS | Encounter Summary ---
Author Organization [facility] Address [address] [place] [address] Phone Care Team Providers Care Transportation Consultant Name Role Phone Scott Oneill MD Primary Care Provider [phone] Encounter Details Date Type Department Care Team [...] on file Legal Sex Male 1:23 AM REVIEW RN Gender Identity Male 12/24/2023 11:25 AM CDT [...] on filedocumented in this encounter Care Teams Transportation Consultant Relationship Specialty Start Date End Date Scott Oneill MD PCP - General Internal Medicine 04/27/20 documented as of this encounter
[2024-11-11 10:10] LABS: Add Urine Microscopic? NO; Appearance Urine Clear (Clear); Glucose Urine UA Negative (Negative); Leukocyte Esterase Ur Negative LEU/UL (Negative); Nitrate Urine Negative (Negative); Specific Grav Ur 1.010 (1.001-1.035)
[2024-11-11 10:23] LABS: Total Protein Urine Random 9 mg/dL; Ur Ttl Prot Creatinine Ratio 0.16 mg/mg (0-0.20)
[2024-11-11 11:13] LABS: Hematocrit 33.0 % (42.0-52.0); Hemoglobin 10.1 g/dL (14.0-18.0); Immature Granulocyte Percent A 0.4 % (0-0.5); Lymphocytes Absolute Auto 0.50 K/mm3 (0.9-3.2); Mean Corpuscular HGB Conc 30.6 g/dl (32-36); Mean Corpuscular Hemoglobin 28.4 pg (26-34); Mean Corpuscular Volume 92.7 fl (80-100); Nucleated Red Blood Cells Absolute Auto 0.000 K/mm3 (0.0-0.012); Nucleated Red Blood Cells Perc 0.0 % (0.0-0.2); Platelet Count Result 156 k/mm3 (150-375); Red Blood Count 3.56 M/mm3 (4.6-6.20); White Blood Count 5.6 K/mm3 (4.5-10.0)
== END 2024-11-11 09:22 | disposition home or self-care (01) ==
LOC: ANHLAB 09:23
PROVIDERS: PCP Internal Medicine; Referring Provider Internal Medicine; Visit Provider Internal Medicine
DX: J84.9 Interstitial pulmonary disease, unspecified (principal); Z79.899 Other long term (current) drug therapy
CPT/HCPCS: 36415; 81003; 82570; 84156; 85025; 86037

== ENCOUNTER 2025-01-11 11:18 | Outpatient (CLI) | payer MEDICARE, OTHER, SELFPAY ==
[2025-01-11 11:56] LABS: Hematocrit 32.3 % (42.0-52.0); Hemoglobin 9.8 g/dL (14.0-18.0); Mean Corpuscular HGB Conc 30.3 g/dl (32-36); Mean Corpuscular Hemoglobin 27.0 pg (26-34); Mean Corpuscular Volume 89.0 fl (80-100); Platelet Count Result 188 k/mm3 (150-375); Red Blood Count 3.63 M/mm3 (4.6-6.20); White Blood Count 8.2 K/mm3 (4.5-10.0)
[2025-01-11 12:15] LABS: Albumin Level 3.8 g/dL (3.5-5.1); Anion Gap 11 mmol/L (4-12); Blood Urea Nitrogen 44 mg/dL (9-20); Calcium 8.2 mg/dL (8.4-10.2); Carbon Dioxide 20 mmol/L (22-30); Chloride 104 mmol/L (98-107); Estimated Glomerular Filt Rate 26; Glucose 111 mg/dL (65-110); Potassium 4.8 mmol/L (3.4-5.0); Sodium 135 mmol/L (137-145)
[2025-01-11 12:28] LABS: Parathyroid Intact 203.4 pg/mL (14.5-75.2)
[2025-01-11 12:44] LABS: Total Protein Urine Random 10 mg/dL; Ur Ttl Prot Creatinine Ratio 0.24 mg/mg (0-0.20)
--- OUTSIDE RECORDS SUMMARY | 2025-01-11 13:24 | XMS_ITS | Encounter Summary ---
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
--- OUTSIDE RECORDS SUMMARY | 2025-01-11 13:24 | XMS_ITS | Clinical Summary ---
Author Organization [facility] [address] Address [address] [place] [address] Care Team Providers Care Surveillance System Monitor Name Role Phone Scott Oneill MD Primary Care Provider [phone] Allergies No known active allergies Medications potassium [...] TAKE AFTER DIALYSIS ON DIALYSIS DAYS Active hydroCHLOROthiaz jyoti (HYDRODIURIL) 25 mg tablet Take 1 tablet (25 mg total) by mouth daily 5 Active neomycin-polymyx in-HC (CORTISPORIN) otic solution INSTILL 4 DROPS INTO AFFECTED EAR(S) BY OTIC ROUTE 3 TIMES PER DAY Active cyclobenzaprine (FLEXERIL) 5 mg tabletIndication s:Muscle spasms of both lower extremities Take 1 tablet (5 mg total) by mouth 2 (two) times a day as needed for muscle spasms (muscle pain) 20 tablet 5 Active mycophenolate mofetil (CELLCEPT) 500 mg tablet Take 1 tablet by mouth twice daily 60 tablet 5 Active Active Problems Problem Noted Date Diagnosed [...] Encounters Date Type Department Care Team Description 11/16/2024 Orders Only [facility] Pul[facility] [address] [facility] [place] Office Building [address] [place] [address] Rivera Veras MD 11/16/[address] [facility] [address] [facility] [place] Office Building [address] [place] [address] Marce Bernal MD Labs Only 11/12/[address] [facility] [address] [facility] Advanced Medicine 8th [place] [address] [place] [address] Margret Cobb CMA 11/11/[address] [facility] [address] [facility] Advanced Medicine 8th [place] [address] [place] [address] Misty Bermudez RN 11/11/[address] 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 Not on file [...] Diagnosis Comments CBC WITH AUTO DIFFERENTIAL Routine 11/16/2024 2:18 PM CDT SCAN - LABS Routine 11/11/2024 2:54 PM CDT CBC WITH AUTO DIFFERENTIAL Routine 11/11/2024 ANCA VASCULITIS PANEL Routine 11/11/2024 from Last 3 Months Results * CBC with auto differential (11/16/2024 2:18 PM CDT) Blood Result [facility] Historical Provider LAB BLOOD ORDERABLES Devorah l Result * SCAN - LABS (11/11/2024 2:54 PM CDT) Historical Provider Final Res ult EXTERNAL LAB * ANCA vasculitis panel (11/11/2024) Blood Result [facility] Tiffanie Weiss MD LAB BLOOD ORDERABLES Edited Resu lt - Final EXTERNAL LAB * (ABNORMAL) CBC with auto differential (11/11/2024) SCRIBED WBC 5.6 4.5 - 10.0 K/cumm EXTERNAL LAB SCRIBED Hemoglobin 10.1(A) 14.0 - 18.0 g/dL EXTERNAL LAB SCRIBED Hematocrit 33.0(A) 42.0 - 52.0 % EXTERNAL LAB SCRIBED Platelets 156 150 - 375 K/cumm EXTERNAL LAB SCRIBED RBC 3.56(A) 4.60 - 6.20 M/cumm EXTERNAL LAB Blood Tiffanie Weiss MD LAB BLOOD ORDERABLES Edited Resu lt - Final EXTERNAL LAB from Last 3 Months Insurance MEDICARE MEDICARE [facility] MEDICARE [employer]IC[employer] Advance Directives For more information, please contact: [phone] * Full Code (Latest Code Status on File) Date Activated Date Inactivated Comments 07/17/2020 8:05 PM 07/19/2020 7:41 PM * Full Code Date Activated Date Inactivated Comments 06/08/2020 6:02 PM 06/15/2020 7:20 PM Healthcare Agents on File Name Relationship Healthcare Agent Relationship Communication Shyann Nielsen Spouse First Alternat e Health Care Agent Care Teams Surveillance System Monitor Relationship Specialty Start Date End Date Scott Oneill MD PCP - General Internal Medicine 04/27/20
--- OUTSIDE RECORDS SUMMARY | 2025-01-11 13:24 | XMS_ITS | Encounter Summary ---
Author Organization [facility] Address [address] [place] [address] Phone Care Team Providers Care Barrel Tester Name Role Phone Scott Oneill MD Primary Care Provider Tavo Mishra MD Unavailable [phone] Gilmer Barnard MD Unavailable [phone] Kev Moser MD Unavailable [phone] Reason for Visit * Reason Comments Medication Refill Encounter Details Date Type Department Care Team (Late st Contact Info) Description 07/27/2023 Refill [facility] [address] [address] Kev Moser MD [address] [place] [phone] Medication Refill Social History Tobacco Use [...] file 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 Refill if appropriate. documented in this encounter Plan of Treatment Upcoming Encounters Date Type Department Care Team (Late st Contact Info) Description 02/02/2025 11:00 AM METAL DRILL OPERATOR Lab [facility] [address] [phone] Lab, [facility] 02/02/2025 11:15 AM METAL DRILL OPERATOR Office Visit [facility] [address] [address] Kev Moser MD [address] [place] [phone] 02/02/2025 11:30 AM METAL DRILL OPERATOR Clinical Support [facility] [address] [phone] Nurse, [facility] documented as of this encounter Visit Diagnoses Not on filedocumented in this encounter Additional Health Concerns Assessment Noted Time PHQ-9 Depression Total Score: 0 11/25/19 21 11:34 AM CDT documented as of this encounter Care Teams Barrel Tester Relationship Specialty Start Date End Date Scott Oneill MD PCP - General Internal Medicine 04/29/17 Tavo Mishra MD [address] [place] [address] Internal Medicine 04/29/17 Gilmer Barnard MD [address] [place] [address] [phone] Consulting Physician Internal Medicine 08/28/17 4 Kev Moser MD [address] [place] [address] Consulting Physician Oncology 02/09/20 documented as of this encounter
--- OUTSIDE RECORDS SUMMARY | 2025-01-11 13:24 | XMS_ITS | Encounter Summary ---
Author Organization [facility] Address [address] [place] [address] Phone Care Team Providers Care Major Sales Associate Name Role Phone Scott Oneill MD Primary Care Provider Tavo Mishra MD Unavailable [phone] Gilmer Barnard MD Unavailable [phone] Kev Moser MD Unavailable Reason for Visit * Reason Comments Medication Refill Encounter Details Date Type Department Care Team (Late st Contact Info) Description 07/01/2023 Refill [facility] [place] [address] [place] [phone] Sindi Qiu, FLY TIER, PR MANAGER [address] [place] [address] Medication Refill Social History Tobacco [...] on file Legal Sex Male 3:42 PM FINISHING FRAME 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 02/02/2025 11:15 AM FINISHING FRAME RUNNER Office Visit [facility] [address] [phone] Kev Moser MD [address] [place] [phone] 02/02/2025 11:30 AM FINISHING FRAME RUNNER Clinical Support [facility] [address] [phone] Nurse, [facility] documented as of this encounter Visit Diagnoses Not on filedocumented in this encounter Additional Health Concerns Assessment Noted Time PHQ-9 Depression Total Score: 0 11/25/19 11:34 AM CDT documented as of this encounter Care Teams Major Sales Associate Relationship Specialty Start Date End Date Scott Oneill MD PCP - General Internal Medicine 04/29/17 Tavo Mishra MD [address] [place] [phone] Internal Medicine 04/29/17 Gilmer Barnard MD [address] [place] [address] Consulting Physician Internal Medicine 08/28/17 4 Kev Moser MD [address] [place] [phone] Consulting Physician Oncology 02/09/20 documented as of this encounter
--- OUTSIDE RECORDS SUMMARY | 2025-01-11 13:24 | XMS_ITS | Encounter Summary ---
Author Organization [facility] Address [address] [place] [address] Phone Care Team Providers Care Marketing Services Manager Name Role Phone Scott Oneill MD Primary Care Provider Tavo Mishra MD Unavailable [phone] Gilmer Barnard MD Unavailable [phone] Kev Moser MD Unavailable [phone] Reason for Visit * Reason Comments Medication Refill Encounter Details Date Type Department Care Team (Late st Contact Info) Description 08/26/2023 Refill [facility] [address] [phone] Kev Moser MD [address] [place] [phone] Medication Refill Social History Tobacco Use [...] on file Legal 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 Gender Identity Not on file Sexual Orientation Not on file documented as of this encounter Functional Status * Question Answer Date of Assessment Author Little interest or pleasure in doing things Not at all 08/27/2023 10:40 AM CDT Viji Tboias LPN Feeling down, depressed, or hopeless Not [...] st Contact Info) Description 02/02/2025 11:00 AM DISHWASHING MACHINE REPAIRER Lab [facility] [address] [phone] Lab, [facility] 02/02/2025 11:15 AM DISHWASHING MACHINE REPAIRER Office Visit [facility] [address] [phone] Kev Moser MD [address] [place] [phone] 02/02/2025 11:30 AM DISHWASHING MACHINE REPAIRER Clinical Support [facility] [address] [phone] [facility] documented as of this encounter Visit Diagnoses Not on filedocumented in this encounter Additional Health Concerns Assessment Noted Time PHQ-9 Depression Total Score: 0 11/25/19 21 11:34 AM CDT documented as of this encounter Care Teams Marketing Services Manager Relationship Specialty Start Date End Date Scott Oneill MD PCP - General Internal Medicine 04/29/17 Tavo Mishra MD [address] [place] [phone] Internal Medicine 04/29/17 Gilmer Barnard MD [address] [place] [address] [phone] Consulting Physician Internal Medicine 08/28/17 4 Kve Moser MD [address] [place] [phone] Consulting Physician Oncology 02/09/20 documented as of this encounter
--- OUTSIDE RECORDS SUMMARY | 2025-01-11 13:24 | XMS_ITS | Clinical Summary ---
Author Organization [facility] Address [address] [place] [address] Care Team Providers Care Portuguese Tutor Name Role Phone Scott Oneill MD Primary Care Provider [phone] Allergies No known active allergies Medications atorvastatin [...] on file Legal Sex Male 9:59 AM WRISTER Gender Identity Not on file Sexual Orientation Not on file Last Filed Vital Signs Vital Sign Reading Time Taken Comments Blood Pressure 146/58 05/02/2017 10:20 AM WRISTER Pulse 103 05/02/2017 10:20 AM WRISTER Temperature 36.9 C (98.5 F) 05/02/2017 10:20 AM WRISTER Respiratory Rate 18 05/02/2017 10:20 AM WRISTER Oxygen Saturation - - Inhaled Oxygen Concentration - - Weight 97.1 kg (214 lb) 05/02/2017 10:20 AM WRISTER Height 166.4 cm (5' 5.5) 05/02/2017 10:20 AM CS T Body Mass Index 35.07 05/02/2017 10:20 AM WRISTER Plan of Treatment Health Maintenance Due Date [...] series) 2014 INFLUENZA VACCINE (#1) 2024 Insurance [facility] BLUE ACCESS CHOICE Care Teams Portuguese Tutor Relationship Specialty Start Date End Date Scott Oneill MD [address] [phone] PCP - General Internal Medicine 05/02/17
--- OUTSIDE RECORDS SUMMARY | 2025-01-11 13:24 | XMS_ITS | Encounter Summary ---
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
--- OUTSIDE RECORDS SUMMARY | 2025-01-11 13:25 | XMS_ITS | Clinical Summary ---
Author Organization [facility] Address [address] [address] Phone Care Team Providers Care Logistics Analyst Name Role Phone Scott Oneill MD Primary Care Provider [phone] Tavo Mishra MD Unavailable [phone] Kev Moser MD Unavailable [phone] Allergies No known active allergies Medications Calcium [...] 2 times daily. Active ergocalciferol (VITAMIN D) 89480 UNIT Capsule Take 50,000 Units by mouth once a week. Active cyanocobalamin 1000 MCG Tablet Take 1 tablet by mouth daily 30 Tab 019 Active Additional Information Patient not taking.Reported on 12/08/2024 traMADol (ULTRAM) 50 MG Tablet 0 019 Active sodium bicarbonate 650 MG Tablet Take 650 mg by mouth 2 times daily. 021 Active aspirin EC 81 MG Tablet Delayed Response Take 81 mg by mouth daily. Active mycophenolate mofetil (CELLCEPT) 500 MG Tablet 1 tablet in AM Activ e cyclobenzaprine (FLEXERIL) 5 MG Tablet Take 5 mg by mouth. Active irbesartan (AVAPRO) 300 MG Tablet Take 300 mg by mouth daily. Active calcitRIOL (ROCALTROL) 0.25 MCG Capsule Active hydroCHLOROthiazi de 25 MG Tablet Take 25 mg by mouth daily. Active ferrous sulfate (SV Iron) 325 (65 Fe) MG TabletIndications :Other autoimmune hemolytic anemia,Anemia in stage 3a chronic kidney disease,Iron deficiency anemia due to sideropenic dysphagia Take 1 tablet by mouth once daily 30 Tablet 2 Active apixaban (ELIQUIS) 5 MG TabletIndications :History of Thromboembolic Disease Take 1 Tablet by mouth 2 times daily. Indications: History of Disease involving a Thrombosis or an Embolism Active SV Iron 325 (65 Fe) MG TabletIndications :Other autoimmune hemolytic anemia,Anemia in stage 3a chronic kidney disease,Iron deficiency anemia due to sideropenic dysphagia Take 1 tablet by mouth once daily 30 Tablet 2 025 2024 Discontinued apixaban (ELIQUIS) 5 MG TabletIndications :History of Thromboembolic Disease Take 1 Tablet by mouth 2 times daily. Indications: History of Disease involving a Thrombosis or an Embolism 025 2024 Discontinued(R eorder) Active Problems Patient Care Coordination No te Formatting of this note migh t be different from the original. PT HAS LABS DRAWN AT WEIR Problem Noted Date Diagnosed Date Vitamin B 12 deficiency 03/06/2022 Myelofibrosis 10/22/2017 Stage 3 chronic kidney disease 05/23/2017 Glomerulonephritis 05/23/2017 Hemolytic anemia 05/23/2017 Iron deficiency anemia due to sideropenic dyspha marques 05/23/2017 Hypertension Encounters Date Type Department Care Team Description 01/05/2025 11:30 AM CDT Clinical Support [facility] [address] [phone] Nurse, Gricelda Lopes Stage 3a chronic kidney disease (Primary Dx); Vitamin B 12 deficiency 01/05/2025 11:15 AM CDT Lab [facility] [address] [phone] Lab, [facility] Anemia in stage 3a chronic kidney disease 01/05/2025 Travel 01/02/2025 Refill [facility] [address] [phone] Tanvi Tobar APRN, GERIATRIC CASE MANAGER Medication Refill 12/08/2024 11:30 AM CDT Clinical Support [facility] [address] [phone] Nurse, [facility] Stage 3a chronic kidney disease (HCC) (Primary Dx); Vitamin B 12 deficiency 12/08/2024 11:15 AM CDT Office Visit [facility] [address] [phone] Tanvi Tobar APRN, KEYANA Anemia in stage 3a chronic kidney disease (HCC) (Primary Dx); Vitamin B 12 deficiency; Iron deficiency anemia, unspecified iron deficiency anemia type 12/08/2024 11:00 AM CDT Lab [facility] [address] [phone] Lab, [facility] Iron deficiency anemia due to sideropenic dysphagia; Vitamin B 12 deficiency 12/08/2024 Travel 11/19/2024 11:15 AM CDT Office Visit [facility] [address] [phone] Kev Moser MD 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); Other autoimmune hemolytic anemia 11/19/2024 Travel 11/15/2024 Telephone [facility] [address] [phone] Kev Moser MD 10/27/2024 11:30 AM CDT Clinical Support [facility] [address] [phone] Nurse, [facility] Vitamin B 12 deficiency (Primary Dx) 10/27/2024 11:15 AM CDT Office Visit [facility] [address] [phone] Sindi Qiu, ORDER CONTROL CLERK BLOOD BANK, GERIATRIC CASE MANAGER Other autoimmune hemolytic anemia (Primary Dx); Anemia in stage 3a chronic kidney disease (HCC); Iron deficiency anemia due to sideropenic dysphagia; Vitamin B 12 deficiency 10/27/2024 11:05 AM CDT Lab [facility] [address] [phone] [facility], [facility] Anemia in stage 3a chronic kidney disease (HCC); Iron deficiency anemia due to sideropenic dysphagia; Vitamin B 12 deficiency 10/27/2024 Travel from Last 3 Months Immunizations Immunization [...] file Legal Sex Male 3:42 PM SENIOR 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 ANALYST Gender Identity Not on file Sexual Orientation Not on file Last Filed Vital Signs Vital Sign Reading Time Taken Comments Blood Pressure 130/62 01/05/2025 11:35 AM CDT Pulse 61 01/05/2025 11:35 AM CDT Temperature 37.1 C (98.7 F) 12/08/2024 11:31 AM CDT Respiratory Rate 18 12/08/2024 11:3 1 AM CDT Oxygen Saturation 92% 01/05/2025 11: 35 AM CDT Inhaled Oxygen Concentration - - Weight 108.4 kg (238 lb 14.4 oz) 2024 11:31 AM CDT Height 165.1 cm (5' 5) 12/08/2024 11:3 1 AM CDT Body Mass Index 39.76 12/08/2024 11:31 AM CDT Plan of Treatment Upcoming Encounters Date Type Department Care Team (Late st Contact Info) Description 02/02/2025 11:00 AM SENIOR RESEARCH ANALYST Lab [facility] [address] [phone] Lab, [facility] 02/02/2025 11:15 AM SENIOR RESEARCH ANALYST Office Visit [facility] [address] [phone] Kev Moser MD [address] [place] [phone] 02/02/2025 11:30 AM SENIOR RESEARCH ANALYST Clinical Support [facility] [address] [phone] Nurse, [facility] Health Maintenance Due Date Last Done Comments Hepatitis C Virus (HCV) Screening 1955 TdaP Immunization 1954 Zoster Immunization (1 of 2) 1973 Cologuard 1999 Immunochemical Fecal Occult Blood 1999 Respiratory Syncytial Virus (RSV) Immunization (Adult) (1 - Risk 60-74 years 1-dose series) 2014 AAA Screening Ultrasound 2019 Medicare Initial AWV G0438 01/30/2020 Pneumococcal Immunization (50+ years) (2 of 2 - PPSV23, PCV20, or PCV21) 04/06/2021 02/09/2021 Influenza Immunization (#1) 2024 10/0 03/2021, 02/21/2021, 02/09/2021, Additional history exists SARS-COV-2 Immunization ( season) 2024 02/09/2021, 07/11/2020, 05/13/2020, Additional history exists Lung [...] COMPLETE BLOOD COUNT (CBC) WITH DIFF Routine 01/05/2025 10:51 AM CDT Anemia in stage 3a chronic kidney disease COMPLETE BLOOD COUNT (CBC) WITH DIFF Routine 12/08/2024 11:11 AM CDT Iron deficiency anemia due to sideropenic dysphagia Vitamin B 12 deficiency CMP (COMPREHENSIVE METABOLIC PANEL) Routine 12/08/2024 11:11 AM CDT Iron deficiency anemia due to sideropenic dysphagia Vitamin B 12 deficiency VITAMIN B12 Routine 12/08/2024 11:11 AM CDT Iron deficiency anemia due to sideropenic dysphagia Vitamin B 12 deficiency FOLIC ACID (FOLATE) Routine 12/08/2024 1 1:11 AM CDT Iron deficiency anemia due to sideropenic dysphagia Vitamin B 12 deficiency FERRITIN Routine 12/08/2024 11:11 AM CDT Iron deficiency anemia due to sideropenic dysphagia Vitamin B 12 deficiency IRON W/ IRON BINDING CAPACITY [place] Routine 12/08/2024 11:11 AM CDT Iron deficiency anemia due to sideropenic dysphagia Vitamin B 12 deficiency URINALYSIS WITH MICROSCOPIC, C/S IF INDICATED [place] Routine 12/08/2024 11:11 AM CDT UR MICROALBUMIN/CREATI NINE RATIO RANDOM Routine 12/08/2024 11:11 AM CDT ANCA (VASCULITIS) [place], [place] [id number] Routine 12/08/2024 11:11 AM CDT CULTURE, URINE Routine 12/08/2024 11:11 AM CDT COMPLETE BLOOD COUNT (CBC) WITH DIFF Routine 10/27/2024 10:54 AM CDT Anemia in stage 3a chronic kidney disease (HCC) Iron deficiency anemia due to sideropenic dysphagia Vitamin B 12 deficiency from Last 3 Months Results * (ABNORMAL) COMPLETE BLOOD COUNT (CBC) WITH DIFF (01/05/2025 10:51 AM CDT) Only the most recent of3 resultswithin the time period is included. WBC 8.2 4.0 - 10.0 10*3/uL [facility] HGB 10.5(L) 13.7 - 17.5 g/dL [facility] HCT 34.1(L) 40.1 - 51.0 % [facility] PLT 199 163 - 369 10*3/uL [facility] MPV 9.6 9.4 - 12.4 fL [facility] RBC 3.78(L) 4.63 - 6.08 10*6/uL [facility] MCV 90 79 - 95 fL [facility] MCH 27.8 25.6 - 32.2 pg [facility] MCHC 30.8(L) 32.2 - 36.5 g/dL [facility] RDW 14.6(H) 11.6 - 14.4 % [facility] Absolute Neutrophil Count 6,708 cells/uL [facility] Absolute Seg Count 6,708(H) 1,440 - 6,600 cells/uL [facility] Absolute Lymph Count 736(L) 760 - 4,000 cells/uL [facility] Absolute [place] Count 491 160 - 1,200 cells/uL [facility] Absolute Eos Count 164 0 - 300 cells/uL [facility] Absolute Baso Count 82 0 - 100 cells/uL [facility] Segmented Neutrophils 82(H) 36 - 66 % [facility] Lymphocytes 9(L) 19 - 40 % [facility] Monocytes 6 4 - 12 % [facility] Eosinophils 2 0 - 3 % [facility] Basophils 1 0 - 1 % [facility] WBC Estimate Normal [facility] Platelet Estimate Normal CA [facility] RBC Morphology Abnormal [facility] Poikilocytosis 1+ C[facility] Blood 01/05/2025 10:5 1 AM CDT Narrative [facility] - 01/05/2025 1:06 PM CDT Release to patient->Immediate Tanvi Tobar ORDER CONTROL CLERK BLOOD BANK, GERIATRIC CASE MANAGER HEMATOLOGY ORDERABLES Final Result [facility] [address] [place] [address], * ANCA (VASCULITIS) [facility], [place] [address]395 (12/08/2024 11:11 AM CDT) ANTI-MPO ANTIBODIES 0.2 0.0 - 0.9 UNITS [facility] ANTI-PR3 ANTIBODIES <0.2 0.0 - 0.9 UNITS [facility] CYTOPLASMIC (C-ANCA) <1:20 NEG:<1:20 TITER [facility] PERINUCLEAR (P-ANCA) <1:20 NEG:<1:20 TITER [facility] Comment: THE PRESENCE OF POSITIVE FLUORESCENCE EXHIBITING P-ANCA OR C-ANCA PATTERNS ALONE IS NOT SPECIFIC FOR THE DIAGNOSIS OF FADI'S GRANULOMATOSIS (WG) OR MICROSCOPIC POLYANGIITIS. DECISIONS ABOUT TREATMENT SHOULD NOT BE BASED SOLELY ON ANCA IFA RESULTS. THE INTERNATIONAL ANCA GROUP CONSENSUS RECOMMENDS FOLLOW UP TESTING OF POSITIVE SERA WITH BOTH VA- 3 AND MPO-ANCA ENZYME IMMUNOASSAYS. MANY 5% SERUM SAMPLES ARE POSITIVE ONLY BY EIA. REF. AM J CLIN PATHOL 1998;111:507-513. ATYPICAL PANCA <1:20 NEG:<1:20 TITER [facility] Comment: THE ATYPICAL PANCA PATTERN HAS BEEN OBSERVED IN A SIGNIFICANT PERCENTAGE OF PATIENTS WITH ULCERATIVE COLITIS, PRIMARY SCLEROSING CHOLANGITIS AND AUTOIMMUNE HEPATITIS. 12/08/2024 11:1 1 AM CDT Narrative [facility] - 12/10/2024 8:18 PM CDT TESTING PERFORMED AT: [BN] [facility] [address], [address], PHONE: [phone], SUPPORT SERVICES REP: SHOAIB OCAMPO MD TESTING PERFORMED AT: [CB] [facility], [address], PHONE: [phone], SUPPORT SERVICES REP: NAVEEN VEGA, PHD Tiffanie Weiss MD LAB SEND OUTS Final Result Performing Organization Address [facility] Co de Phone Number [facility] [address] [place] [address], [place] [phone] * (ABNORMAL) IRON W/ IRON BINDING CAPACITY [place] (12/08/2024 11:11 AM CDT) IRON 65 50 - 212 ug/dL [facility] UIBC 181 155 - 355 ug/dL [facility] TIBC 246(L) 261 - 478 ug/dl [facility] % Saturation 26 20 - 50 % [facility] 12/08/2024 11:1 1 AM CDT Narrative [facility] - 12/08/2024 12:09 PM CDT Release to patient->Immediate Sindi Qiu ORDER CONTROL CLERK BLOOD BANK, GERIATRIC CASE MANAGER LAB SEND OUTS Final Result Performing Organization Address [facility]/ZIP Co de Phone Number [facility] [address] [place] [address], [place] [phone] * (ABNORMAL) URINALYSIS WITH MICROSCOPIC, C/S IF INDICATED [place] (12/08/2024 11:11 AM CDT) Urine Color Yellow Straw-Yel low [facility] Urine Clarity Hazy(A) Clear [facility] Urine Glucose NEG NEG mg/dL [facility] Urine Bilirubin NEG NEG mg/dL [facility] Urine Ketones NEG NEG mg/dL [facility] Urine Specific Eunice 1.010(L) 1.015 - 1.020 [facility] Urine Blood NEG NEG mg/L [facility] Urine pH 6.0 5.0 - 8.0 [pH] [facility] Urine Protein NEG NEG mg/dL [facility] Urine Urobilinogen 0.2 0.2 - 1.0 mg/dL [facility] Urine Nitrite NEG NEG [facility] Urine Leukocytes NEG NEG [facility] Urine Epithelial Cells Few None,Rare ,Few /LPF [facility] Urine Mucus Few(A) None /LPF [facility] Urine Cast None None /LPF [facility] Urine Bacteria Rare(A) None /HPF [facility] Urine Crystal None None /LPF [facility] Urine White Blood Cells 5-10(A) 0 - 4 /HPF [facility] Urine Red Blood Cells 0-2 0 - 2 /HPF [facility] 12/08/2024 11:1 1 AM CDT Tiffanie Weiss MD LAB SEND OUTS Final Result [facility] [place] [address], * VITAMIN B12 (12/08/2024 11:11 AM CDT) Vitamin B12 432 180 - 914 pg/mL [facility] Blood 12/08/2024 11:1 1 AM CDT [facility] - 12/09/2024 2:38 PM CDT Release to patient->Immediate Sindi Qiu APRN, GERIATRIC CASE MANAGER CHEMISTRY ORDERABLES Final Result Performing Organization Address [facility]/ZIP Co de Phone Number [facility] [address] [place] [address], * UR MICROALBUMIN/CREATININE RATIO RANDOM (12/08/2024 11:11 AM CDT) CREATININE, URINE 75.8 NOT ESTAB. MG/DL [facility] MICROALBUMIN, URINE 11.9 NOT ESTAB. UG/ML [facility] MICROALB/CREAT RATIO 16 0 - 29 MG/G CREAT [facility] Comment: NORMAL: 0 - 29 MODERATELY INCREASED: 30 - 300 SEVERELY INCREASED: >300 12/08/2024 11:1 1 AM CDT [facility] - 12/09/2024 11:08 AM CDT TESTING PERFORMED AT: [] [facility], [address] [place] [address], [address], PHONE: [phone], SUPPORT SERVICES REP: NAVEEN VEGA, PHD Tiffanie Weiss MD URINE ORDERABLES Final Result Performing Organization Address City/[facility] Co de Phone Number [facility] Cancer Care [address] [place] [address], [place] [phone] * FOLIC ACID (FOLATE) (12/08/2024 11:11 AM CDT) Folate 12.61 >=5.90 ng/mL [facility] Blood 12/08/2024 11:1 1 AM CDT [facility] - 12/09/2024 2:38 PM CDT Release to patient->Immediate IS THE PATIENT REQUIRED TO BE FASTING FOR 12 HOURS?->No Sindi Qiu APRN, GERIATRIC CASE MANAGER CHEMISTRY ORDERABLES Final Result Performing Organization Address City/[facility]/ZIP Co de Phone Number [facility] Cancer Care [address] [place] [address], * FERRITIN (12/08/2024 11:11 AM CDT) Pathologist [facility] Ferritin 319 24 - 336 ng/mL [facility] Blood 12/08/2024 11:1 1 AM CDT Narrative [facility] - 12/09/2024 2:38 PM CDT Release to patient->Immediate Sindi Qiu APRN, GERIATRIC CASE MANAGER CHEMISTRY ORDERABLES Final Result Performing Organization Address [facility] Co de Phone Number [facility] [address] [place] [address], * (ABNORMAL) CULTURE, URINE (12/08/2024 11:11 AM CDT) Pathologist [facility] URINE CULTURE, ROUTINE FINAL REPORT(A) [facility] RESULT 1 ESCHERICHIA COLI(A) [facility] Comment: CEFAZOLIN WITH AN JOSE <=16 PREDICTS SUSCEPTIBILITY TO THE ORAL AGENTS CEFACLOR, CEFDINIR, CEFPODOXIME, CEFPROZIL, CEFUROXIME, CEPHALEXIN, AND LORACARBEF WHEN USED FOR THERAPY OF UNCOMPLICATED URINARY TRACT INFECTIONS DUE TO E. COLI, KLEBSIELLA PNEUMONIAE, AND PROTEUS MIRABILIS. 10,000-25,000 COLONY FORMING UNITS PER ML ANTIMICROBIAL SUSCEPTIBILITY COMMENT [facility] Comment: S = SUSCEPTIBLE; I = [...] S TETRACYCLINE S TOBRAMYCIN S TRIMETHOPRIM/SULFA S 12/08/2024 11:1 1 AM CDT Narrative [facility] - 12/13/2024 3:06 AM CDT TESTING PERFORMED AT: [] [facility], [address] [place] [address], [place], [address], PHONE: [phone], SUPPORT SERVICES REP: NAVEEN VEGA, PHD us Tiffanie Weiss MD MICROBIOLOGY - GENERAL ORDERABLE S Final Result [facility] [address] [place] [address], * (ABNORMAL) CMP (COMPREHENSIVE METABOLIC PANEL) (12/08/2024 11:11 AM CDT) Glucose 125(H) 70 - 105 mg/dL [facility] Blood Urea Nitrogen 53(H) 7 - 25 mg/dL [facility] Creatinine 2.6(H) 0.7 - 1.3 mg/dL [facility] Sodium 139 136 - 145 mEq/L [facility] Potassium 4.4 3.5 - 5.1 mEq/L [facility] Chloride 106 98 - 107 mEq/L [facility] Bicarbonate 21 21 - 31 mEq/L [facility] Total Bilirubin 0.5 0.3 - 1.0 mg/dL [facility] Alk. Phosphatase 67 34 - 104 U/L [facility] Aspartate Aminotransferase 9(L) 13 - 39 U/L [facility] Alanine Aminotransferase 10 7 - 52 U/L [facility] Total Protein 5.9(L) 6.4 - 8.9 g/dL [facility] Albumin 3.8 3.5 - 5.7 g/dL [facility] Calcium 8.0(L) 8.6 - 10.3 mg/dL [facility] Anion Gap 16.4(H) 7.0 - 15.0 mEq/L [facility] Globulin 2.1 2.0 - 3.5 g/dL [facility] EGFR 26(L) >60 ml/min/1. 73m2 [facility] Comment: This eGFR is calculated using 2020 CKD-EPI Creatinine equation without race modifier based on the NKF-ASN task force recommendations Equation: pHPE=053*min(SCr/k,1)a*max(SCr/k,1)-1.200*0.9938Age*1.012 (if female), where SCr is serum creatinine, k is 0.7 for females and 0.9 for males, and a is -0.241 for females and -0.302 for males Blood 12/08/2024 11:1 1 AM CDT Narrative [facility] - 12/08/2024 12:09 PM CDT Release to patient->Immediate IS THE PATIENT REQUIRED TO BE FASTING FOR 8 HOURS?->No Sindi Qiu APRN, GERIATRIC CASE MANAGER CHEMISTRY ORDERABLES Final Result [facility] [address] [place] [address], from Last 3 Months Insurance MEDICARE MEDICARE [facility] Care Teams Logistics Analyst Relationship Specialty Start Date End Date Scott Oneill MD PCP - General Internal Medicine 04/29/17 Tavo Mishra MD [address] [address] Internal Medicine 04/29/17 Kev Moser MD [address] [place] [phone] Consulting Physician Oncology 02/09/20
--- OUTSIDE RECORDS SUMMARY | 2025-01-11 13:25 | XMS_ITS | Encounter Summary ---
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
--- OUTSIDE RECORDS SUMMARY | 2025-01-11 13:25 | XMS_ITS | Encounter Summary ---
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
--- OUTSIDE RECORDS SUMMARY | 2025-01-11 13:25 | XMS_ITS | Data Portability ---
Author Organization [place] [facility], Main Office Address [address] [place] [address] Care Team Providers Care Edge Molder Name Role Phone LEANN ONEILL Primary Care Provider Assessment No assessment recorded. Plan of Treatment Reminders Order Date Submit Date Provider Last Modified By Organization Details Last Modified Time Details Appointments Any 2025 01:15P M Leann Oneill MD Not available Not available Not available Lab testoster one, free + total, serum 2024 [email or web address] [place] [address], [address] [place] [address], [id number], 05/06/2024 08:40:30 PSA, serum or plasma 2023 024 [email or web address] [facility], [address] [place] [address], [id number], 12/17/2023 07:51:57 lipid panel, serum [email or web address], [address] [place] [address], [id number], 12/17/2023 07:51:56 Referral dermatolo gist referral - Please call patient to schedule an appointme nt. Thank you. 2024 025 REPLACED BY [facility], [address] [place] [address], [id number], 12/14/2024 10:14:32 Procedures None recorded. Surgeries None recorded. Imaging None recorded. Medication Orders tadalafil 20 mg tablet 2024 025 [facility], [address] [place] [address], [id number], 12/13/2024 15:19:21 pregabali n 50 mg capsule 2024 025 [facility], [address] [place] [address], [id number], 12/13/2024 15:19:23 tadalafil 20 mg tablet 2024 025 [facility], [address] [place] [address], [id number], 04/08/2024 09:47:11 Patient Targets Encounter Date Encounter Id Patient Goals Patient Target Last Modified By Organization Details Last Modified Time 12/13/2024 [id number] diet, exercise, review POA, DNR . Not available 12/13/2024 15:45:30 Patient Instructions Encounter Date Encounter Id Patient Instructions Last Modified By Organization Details Last Modified Time 08/05/2023 [id number] [email or web address] Not available 08/05/2023 12:11:17 12/10/2023 [id number] dementia rating scale-2* Not available 12/10/2023 17:40:46 alcohol misuse* Not available 12/10/2023 17:40:46 depression screening* Not available 12/10/2023 17:40:47 Timed Up and Go test (TUG)* Not available 12/10/2023 17:40:46 multi-dimensiona l health assessment questionnaire* Not available 12/10/2023 17:40:47 advance care planning: care instructions Not available 12/10/2023 17:40:46 advance directiv es: care instructions Not available 12/10/2023 17:40:47 [place] Advance Directives Not available 12/10/2023 17:40:47 Personalized [...] necessary Dementia Risk: Low I have no recommendations. Depression Screening: Negative I have no recommendations. [email or web address] Not available 12/10/2023 15:25:38 04/08/2024 [id number] Not available 04/08/2024 09:48:43 08/09/2024 [id number] sabina Not available 08/09/2024 10:45:50 12/13/2024 [id number] dementia rating scale-2* [email or web address] Not available 12/13/2024 15:59:01 dementia rating scale-2* [email or web address] Not available 12/13/2024 16:14:58 multi-dimensiona l health assessment questionnaire* [email or web address] Not available 12/13/2024 15:58:46 care plan* Not available 12/13 16:58:48 advance care planning: care instructions Not available 12/13/2024 16:58:48 advance directiv es: care instructions Not available 12/13/2024 16:58:48 [place] Advance Directives Not available 12/13/2024 16:58:48 multi-dimensiona l health assessment questionnaire* Not available 12/13/2024 16:58:48 care plan* Not available 12/13 16:58:48 advance directiv es: care instructions Not available 12/13/2024 16:58:48 advance care planning: care instructions Not available 12/13/2024 16:58:48 [place] Advance Directives Not available 12/13/2024 16:58:48 Personalized Hea lt Plan and Screening Recommendations Advance Directives - Do you have one? No I recommend consulting with an Camp Maintenance Supervisor, family member, or friend to assist you. Advance Directives - Do we have your advance directive on file in your health record? No, please bring in a copy at your earliest convenience Primary Prevention/Interven tion (prevents or decreases the chance of common diseases from occurring) Smoking Risk: Non Smoker Alcohol Misuse Screening: Negative Weight: Overweight Physical activity: Need more exercise/physical activity Nutrition: Poor Fall Risk (screened today): Intermediate Vaccines Pneumococcal: No further needed Influenza: Recommended today Chronic Disease Risks Stroke: Active diagnosis, Continue current treatment plan Heart Attack: Active diagnosis, Continue current treatment plan Clogging of the Arteries: Active diagnosis, Continue current treatment plan Diabetes: Active diagnosis, Continue current treatment plan Secondary Prevention/Interven tion (detects treatable diseases before they may cause symptoms, disability, or ) Prostate Cancer Screening: Your next PSA in: Colon Cancer Screening: Colonoscopy Date Screening Last Performed: Eye Disease Screening: Your next exam in: Dementia Risk: Low Depression Screening: Active diagnosis, Continue current treatment plan Personalized Health Plan and Screening Recommendations Advance Directives - Do you have one? No Advance Directives - Do we have your advance directive on file in your health record? No, please bring in a copy at your earliest convenience Primary Prevention/Interven tion (prevents or decreases the chance of common diseases from occurring) Smoking Risk: Alcohol Misuse Screening: Weight: Physical activity: Nutrition: Fall Risk (screened today): Vaccines Pneumococcal: Influenza: Chronic Disease Risks Stroke: Active diagnosis, Continue current treatment plan Heart Attack: Active diagnosis, Continue current treatment plan Clogging of the Arteries: Active diagnosis, Continue current treatment plan Diabetes: Active diagnosis, Continue current treatment plan Secondary Prevention/Interven tion (detects treatable diseases before they may cause symptoms, disability, or ) Breast Cancer Screening with mammogram: Cervical/Uterine/Ov leoncio Cancer Screening: Osteoporosis Screening: Date Screening Last Performed: Colon Cancer Screening: Colonoscopy Date Screening Last Performed: Eye Disease Screening: Your next exam in: Dementia Risk: Depression Screening: Active diagnosis, Continue current treatment plan Personalized Health Plan and Screening Recommendations Advance Directives - Do you have one? Advance Directives - Do we have your advance directive on file in your health record? Primary Prevention/Interven tion (prevents or decreases the chance of common diseases from occurring) Smoking Risk: Alcohol Misuse Screening: Weight: Physical activity: Nutrition: Fall Risk (screened today): Vaccines Pneumococcal: Influenza: Chronic Disease Risks Stroke: Active diagnosis, Continue current treatment plan Heart Attack: Active diagnosis, Continue current treatment plan Clogging of the Arteries: Active diagnosis, Continue current treatment plan Diabetes: Active diagnosis, Continue current treatment plan Secondary Prevention/Interven tion (detects treatable diseases before they may cause symptoms, disability, or ) Prostate Cancer Screening: Colon Cancer Screening: Date Screening Last Performed: Eye Disease Screening: Your next exam in: Dementia Risk: Depression Screening: Active diagnosis, Continue current treatment plan Not available 12/13/2024 17:05:06 Reason for Referral [employer] Program Director Referral for E ruption Please call patient to schedule an appointment. Thank you. Referring Physician: Leann Oneill, Internal Medicine, Encounter Date: 12/13/2024 Results Created Date Observation Date Name Description Value Unit Range Abnormal Flag Note LastModifiedBy Organization Detail LastModifiedTime 04/09/19 25 10/18/2021 colon oscop y javiere radha (PROC ) No observ ation record ed. BARCODE Not Available 2024 11:31:35 Result Notes None recorded. Problems Name Problem SNOMED Code Status Onset Date Resolution Date Notes Provider Name and Address Organization Details Recorded Time Abnormal testoste lizzy 912054324 Active could not afford medicine Sarah groves, DEVEN prado, [place] [facility] 3 12:27:32 External hordeolu m 1760919 Active Not Available [facility] 3 04:52:03 Osteoart hritis of knee 173979991 Active Not Available [facility] 3 04:52:03 Eruption 278739062 Completed Leann Oneill MD [address] [facility], [address], [place], [address] , [place] [facility] 5 15:23:07 Low back pain 813218636 Completed Not Available [facility] 3 04:52:04 Otitis externa 3107214 Completed Not Available [facility] 3 04:52:04 Malignan t neoplasm of skin 237022311 Active on lip, no recurren ce, dr whelan Not Available [facility] 3 04:52:04 Neuropat hy 575022873 Active Sarah groves RMA null, [place] [facility] 3 12:28:38 Osteoart hritis 211022039 Completed 12/06/2022 Sarah groves RMA null, [place] [facility] 3 12:28:43 Obesity 694462668 Active Not Available [facility] 3 04:52:04 Hyperlip idemia 03693914 Active Not Available [facility] 3 04:52:05 [facility]ia l hyperten mara 27219070 Active Not Available [facility] 3 04:52:05 Otitis media 05851553 Completed Not Available [facility] 3 04:52:05 Sleep apnea 77094987 Active cpap Not Available [facility] 3 04:52:05 Ex-smoke r 5984990 Active quit 2010 Sarah groves RMA null, [place] [facility] 3 12:27:44 Anemia 538379336 Active 2019 Not Available [facility] 3 04:52:03 Deep venous thrombos is 154706889 Active 2020 Sarah Stufflebea n, RMA null, [place] [facility] 3 12:27:50 Backache 271557557 Completed 202012/06/2022 Sarah groves RMA null, [place] [facility] 3 12:27:28 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 Not Available [facility] 3 04:52:03 Edema 147800561 Completed 202012/06/2022 Sarah groves, RMA null, [place] [facility] 3 12:27:45 Chest pain 84363724 Completed 202012/06/2022 Sarah groves, RMA null, [place] [facility] 3 12:27:25 Ulcer of duodenum 79813759 Active 2020 Not Available [facility] 3 04:52:05 Kidney disease 73486952 Active 2020 Sarah groves, RMA null, [place] [facility] 3 12:27:52 Testoste lizzy level below referenc e range 428223329 Completed 202112/06/2022 Sarah groves, RMA null, [place] [facility] 3 12:28:40 Hearing loss 61039370 Active 2021 Sarah groves, RMA null, [place] [facility] 3 12:27:57 Erectile dysfunct ion 192773375 Active 2021 Sarah groves, RMA null, [place] [facility] 3 12:27:37 Acute upper respirat ory infectio n 34185653 Completed 202112/06/2022 Sarah groves RMA null, [place] [facility] 3 12:27:19 Acute sinusiti s 69396235 Completed 202112/06/2022 Libra Blas LPN null, [place] [facility] 3 17:08:12 Cough 31713264 Completed 202112/06/2022 SarahDEVEN Marr null, [place] [facility] 3 12:27:23 Polyp of colon 17758982 Active 2022 Leann Oneill MD [address], [address], [place], [address] , [facility] 3 12:56:21 Acute sinusiti s 15729261 Active 2022 Libra Blas LPN null, [place] [facility] 3 17:08:12 Melena 1997478 Active 2022 Leann Oneill MD [address], [address], [place], [address] , [facility] 3 14:26:40 Blood in urine 90268460 Active 2022 Leann Oneill MD [address], [address], [place], [address] , [facility] 3 14:27:23 Intersti tial lung disease 223103726 Active 2022 Leann Oneill MD [address], [address], [place], [address] , [facility] 3 14:32:34 Mass of subcutan eous tissue of toe of left foot 80497037375 665660 Active 2023 He Mccormick DPM [address], [address], [place], [address] , [facility] 4 11:19:16 History of malignan t neoplasm of skin 480410312 Active 2023 He Mccormick DPM [address], [address], [place], [address] , [facility] 4 11:19:52 Vasculit is 77875849 Active 2023 Leann Oneill MD [address], [address], [place], [address] , [facility] 4 12:34:40 Sinusiti s 01201894 Active 2023 Rosa Walter MA null, [facility] 4 11:15:03 Eruption 250664485 Active 2024 Leann Oneill MD [address], [address], [place], [address] , [facility] 5 15:23:06 Edema of lower extremit y 607727722 Active 2024 Leann Oneill MD [address], [address], [place], [address] , 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 Procedures Surgical History Date Name Laterality Status Provider Name and Address Organization Details Recorded Time 5 Medicare Wellness CPT Code, subsequent completed Ivolet Jeff [facility] 12/08/2024 16:14:51 4 Medicare Wellness CPT Code, subsequent completed Debbie Sepulveda RN [facility] [employer] [facility] 12/10/2023 12:53:31 4 Advanced Care Planning completed Debbie Sepulveda RN [facility] [employer] [facility] 12/10/2023 14:58:54 3 Medicare Wellness CPT Code, subsequent completed [place] [employer] 12/06/2022 12:58:58 other completed Not Available [facility] 03/2022 04:43:13 Imaging Results None recorded. Procedure [...] mg tablet TAKE 1 TABLET BY MOUTH IN THE MORNING active Not Available Not Available No t [...] Not Available Not Available No t Available azithromyci n 250 mg tablet TAKE 2 TABLETS BY MOUTH ON DAY 1, AND THEN TAKE 1 TABLET BY MOUTH ONCE A DAY ON DAY 2 THROUGH DAY 5 12/13 completed Not Available Not Available Not Available benzonatate 200 mg capsule Take 1 [...] MOUTH EVERY 6 HOURS NEEDED FOR PAIN active Not Available Not Available No t Available lisinopril 20 mg tablet TAKE 1 [...] Not Available prednisone 5 mg tablet TAKE 4 TABLETS BY MOUTH ONCE DAILY FOR 4 DAYS, THEN TAKE 3 TABS ONCE DAILY FOR 4 DAYS, THEN TAKE 2 TABS ONCE DAILY FOR 4 DAYS, AND THEN TAKE 1 TAB ONCE DAILY FOR 4 DAYS active Not Available Not Available No t Available clindamycin HCl 150 mg capsule TAKE FOUR CAPSULES BY MOUTH ONE HOUR BEFORE APPOINTME NT 12/07 completed Not Available Not Available Not Available azathioprin e 50 mg tablet TAKE 4 TABLETS BY MOUTH ONCE DAILY 03/17 completed Not Available Not Available Not Available ciprofloxac in 250 mg tablet TAKE 1 TABLET BY MOUTH TWICE DAILY FOR 5 DAYS 12/13 completed Not Available Not Available Not Available sulfamethox azole 800 mg-trimetho prim 160 mg tablet TAKE 1 TABLET BY MOUTH TWICE DAILY FOR URINARY INFECTION FOR 3 DAYS 12/13 completed Not Available Not Available Not Available omeprazole 40 mg capsule,del ayed release 05/28 completed Not Available Not Available Not Available aspirin 81 mg tablet,thaddeus yed release Take 1 tablet every day by oral route. active Not Available Not Available No t Available tramadol 50 mg tablet TAKE 1 TABLET BY MOUTH TWICE DAILY NEEDED active Not Available Not Available No t Available triamcinolo ne acetonide 0.1 % topical cream APPLY A THIN LAYER TOPICALLY TO AFFECTED AREA(S) TWICE DAILY active Not Available Not Available No t Available mycophenola te mofetil 500 mg tablet TAKE 1 TABLET BY MOUTH [...] mEq tablet,exte nded release(par t/cryst) TAKE 1 TABLET BY MOUTH TWICE DAILY active Not Available Not Available No t Available sodium bicarbonate 650 mg tablet TAKE 2 TABLETS BY MOUTH TWICE DAILY active Not Available [...] Not Available Not Available No t Available ferrous sulfate 325 mg (65 mg iron) tablet TAKE 1 TABLET BY MOUTH ONCE [...] completed Not Available Not Available Not Available hydrochloro thiazide 25 mg tablet TAKE 1 TABLET BY MOUTH ONCE DAILY active Not Available Not Available No t Available ergocalcife rol (vitamin D2) 1,250 mcg [...] propionate 50 mcg/actuati on nasal spray,suspe nsion Duncan 2 sprays every day by intranasa l route. 03/17 completed Not Available Not Available Not Available calcitriol 0.25 mcg capsule TAKE 1 CAPSULE BY MOUTH THREE TIMES A WEEK AFTER DIALYSIS ON DIALYSIS DAYS active Not Available Not Available No t Available irbesartan 300 mg tablet TAKE 1 TABLET BY MOUTH ONCE DAILY active Not Available Not Available No t Available amoxicillin 875 mg-potassiu m clavulanate 125 [...] Not Available cyclobenzap rine 5 mg tablet TAKE 1 TABLET BY MOUTH TWICE DAILY NEEDED FOR MUSCLE SPASM active Not Available Not Available No t Available tadalafil 20 mg tablet TAKE 1 TABLET BY MOUTH ONCE DAILY NEEDED active Not Available Not Available No t Available Vytorin 10 mg-20 mg tablet Take 1 tab by mouth qd 07/12 completed Not Available Not Available Not Available pregabalin 50 mg capsule TAKE 1 CAPSULE BY MOUTH THREE TIMES DAILY active Not Available Not Available No t Available Calcium 600 + D(3) 03/17 completed Not [...] Address Organization Details Last Updated DateTime 5 776392. 61 g 97.4 [degF] 94 % 94 % 88 /min 138/62 mm[Hg] Marga Zeng [employer] [facility] 5 09:18:42 Date Recorded Body height Body mass index (BMI) Body weight Body temperature Heart rate Oxygen saturation Oxygen saturation in Arterial blood by Pulse oximetry Systolic And Diastolic Provider Name and Address Organization Details Last Updated DateTime 4 165.1 cm 38.9 kg/m2 709738. 61 g 97.9 [degF] 86 /min 98 % 98 % 140/82 mm[Hg] Janey Ulrich CMA [employer] [facility] 4 12:11:24 Date Recorded Body height Body mass index (BMI) Body weight Body temperature Heart rate Oxygen saturation Oxygen saturation in Arterial blood by Pulse oximetry Systolic And Diastolic Provider Name and Address Organization Details Last Updated DateTime 5 165.1 cm 39.3 kg/m2 611202. 8 g 97.3 [degF] 69 /min 97 % 97 % 128/67 mm[Hg] Marga pearson [employer] [facility] 5 10:55:46 Date Recorded Body height Body mass index (BMI) Body weight Body temperature Heart rate Oxygen saturation Oxygen saturation in Arterial blood by Pulse oximetry Systolic And Diastolic Provider Name and Address Organization Details Last Updated DateTime 4 165.1 cm 39.1 kg/m2 300042. 21 g 97.7 [degF] 73 /min 96 % 96 % 140/60 mm[Hg] Sarah mendoza CHUCKYg [facility] [employer] [facility] 4 11:56:23 Date Recorded Pain severity - 0-10 verbal numeric rating [Score] - Reported Provider Name and Address Organization Details Last Updated DateTime 12/10/2023 6 Debbie Sepulveda RN [facility] 12/10/2023 14:54:48 Date Recorded Body height Body mass index (BMI) Body weight Body temperature Heart rate Oxygen saturation Oxygen saturation in Arterial blood by Pulse oximetry Systolic And Diastolic Provider Name and Address Organization Details Last Updated DateTime 5 165.1 cm 39.3 kg/m2 710418. 8 g 97.7 [degF] 71 /min 96 % 96 % 134/70 mm[Hg] Sarah mendoza CH[place] [facility] [employer] [facility] 5 14:45:46 Social History Question Answer Notes LastModified by Organization Details LastModified Time Tobacco Smoking Status Former Smoker Quit in 2003 Debbie Sepulveda RN [facility] [employer] [facility] 12/10/2023 12:57:32 Do You Have An Advance Directive? No Paperwork Given 12/10/2023 [email or web address] Information not available 12/10/2023 Are You Blind Or Do You Have Difficulty Seeing? No [id number] Information not available 05/29/2022 Is Blood Transfusion Acceptable In An Emergency? Yes [email or web address] Information not available 12/10/2023 What Is Your Level Of Caffeine Consumption? Occasional [id number] Information not available 05/29/2022 How Much Tobacco Do You Chew? None [email or web address].[id number] [id number] Information not available 05/29/2022 In The 14 Days Before Symptom Onset, Have You Had Close Contact With A Laboratory-conf irmed COVID-19 While That Case Was Ill? No Not Applicable [email or web address] Information not available 12/10/2023 In The 14 Days Before Symptom Onset, Have You Had Close Contact With A Person Who Is Under Investigation For COVID-19 While That Person Was Ill? No Not Applicable [email or web address] Information not available 12/10/2023 Are You Deaf Or Do You Have Serious Difficulty Hearing? Yes Bilateral Hearing Aids [email or web address] Information not available 12/10/2023 What Type Of Diet Are You Following? REGULAR [email or web address].030 [id number] Information not available 05/29/2022 Which Illicit Or Recreational Drugs Have You Used? None [email or web address].030 [id number] Information not available 05/29/2022 What Is The Highest Grade Or Level Of School You Have Completed Or The Highest Degree You Have Received? [id number] [email or web address] Information not available 12/10/2023 Do You Have An Electrostatic Air Filter? Yes [email or web address].030 [id number] Information not available 05/29/2022 How Many Days Of Moderate To Strenuous Exercise, Like A Brisk Walk, Did You Do In The Last 7 Days? 0 [email or web address] Information not available 12/10/2023 Have There Been Any Changes To Your Family Or Social Situation? No MIGRATION.030 [id number] Information not available 05/29/2022 What Is The Fluoride Status Of Your Home? Fluoridated MIGRATION.030 [id number] Information not available 05/29/2022 When Did You Quit Smoking? 16+yearssincelastc igarette [email or web address] Information not available 12/10/2023 Are There Any Guns Present In Your Home? Yes [email or web address].[id number] [id number] Information not available 05/29/2022 Do You Have A Humidifier? No On The Cpap Machine MIGRATION.030 [id number] Information not available 05/29/2022 Do You Use Insect Repellent Routinely? No [email or web address] Information not available 12/10/2023 Where Do You Live? SingleLevelHouse MIGRATION.030 [id number] Information not available 05/29/2022 Presence Of Domestic Violence No [email or web address] Information not available 12/06/2022 Are You Able To Care For Yourself? Yes Information not available 12/06/2022 Are You Blind Or Do Yo Have Difficulty Seeing? No [email or web address] Information not available 12/06/2022 Are You Deaf Or Do You Have Serious Difficulty Hearing? No [email or web address] Information not available 12/06/2022 General Stress Level? Moderate [email or web address] Information not available 12/10/2023 Live Alone Of With Others? With Others [email or web address] Information not available 12/06/2022 Do You Have A Medical Power Of Camp Maintenance Supervisor? No [email or web address] Information not available 12/10/2023 Do You Have Moisture Problems In Your Home? No MIGRATION.0301 [id number] Information not available 05/29/2022 What Was The Date Of Your Most Recent Tobacco Screening? 12/10/2023 [email or web address] Information not available 12/10/2023 How Many Children Do You Have? 4 [email or web address] Information not available 12/10/2023 What Is Your Current Pack Years? [email or web address] Information not available 12/10/2023 Do You Have Any Pets? Yes MIGRATION.0301 [id number] Information not available 05/29/2022 Do You Use Protection During Sex? No [email or web address] Information not available 12/10/2023 What Is Your Relationship Status? [email or web address] Information not available 12/10/2023 Do You Use Your Seat Belt Or Car Seat Routinely? Yes MIGRATION.0301 [id number] Information not available 05/29/2022 Are You Sexually Active? Yes [email or web address] Information not available 12/10/2023 Do You Have Smoke And Carbon Monoxide Detectors In Your Home? Yes MIGRATION.0301 [id number] Information not available 05/29/2022 At What Age Did You Start Smoking Tobacco? 18 MIGRATION.0301 153144 Information not available 05/29/2022 Are You Passively Exposed To Smoke? No MIGRATION.0301 [id number] Information not available 05/29/2022 Are There Any Smokers In Your House? No MIGRATION.0301 324406 Information not available 05/29/2022 How Much Tobacco Do You Smoke? 1 PPD MIGRATION.0301 [id number] Information not available 05/29/2022 What Types Of Sporting Activities Do You Participate In? None [email or web address] Information not available 12/10/2023 Do You Use Sunscreen Routinely? No MIGRATION.0301 250717 Information not available 05/29/2022 Has Tobacco Cessation Counseling Been Provided? No [email or web address] Information not available 12/10/2023 How Many Years Have You Smoked Tobacco? 30 [email or web address] Information not available 12/10/2023 Have You Recently Traveled Abroad? No MIGRATION.0301 498239 Information not available 05/29/2022 Do You Have Difficulty Walking Or Climbing Stairs? No MIGRATION.0301 [id number] Information not available 05/29/2022 Do You Have Any Dietary Restrictions? No MIGRATION.0301 318258 Information not available 05/29/2022 Sex: Male Functional Status Question Answer Note LastModified by Organizat ion Details LastModified Time Do you use any illicit or recreational drugs? No MIGRATION.872234 5274 Information not available 05/29/2022 Do you or have you ever used any other forms of tobacco or nicotine? No MIGRATION.618202 9709 Information not available 05/29/2022 What is your level of alcohol consumption? None [email or web address] Information not available 12/10/2023 Are you currently employed? No [email or web address] Information not available 12/10/2023 Do you have transportation difficulties? No MIGRATION.388423 1031 Information not available 05/29/2022 Are you able to walk independently without assistance or assistive devices? YESWOREST MIGRATION.614758 5446 Information not available 05/29/2022 Do you have difficulty doing errands alone? No MIGRATION.094294 7442 Information not available 05/29/2022 Are you able to care for yourself independently? 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 No MIGRATION.826836 1062 Information not available 05/29/2022 What is your exercise level? None MIGRATION.245514 4004 Information not available 05/29/2022 Mental Status Question Answer Note LastModified by Organizat ion Details LastModified Time Do you feel stressed (tense, restless, nervous, or anxious, or unable to sleep at night)? [id number] [email or web address] Information not available 12/10/2023 Do you have difficulty concentrating, remembering or making decisions? No MIGRATION.00035277 26 Information not available 05/29/2022 Family History Relationship Description Onset Age of this Age Resolved Age Notes LastModified by Organization Details LastModified Time Father Essential hypertension MIGRATION.861 [id number] Not available 05/29/2022 04:43:16 Sister Diabetes mellitus MIGRATION.534 [id number] Not available 05/29/2022 04:43:16 Brother Small cell carcinoma of lung 59 MIGRATION.641 [id number] Not available 05/29/2022 04:43:16 Medical History Condition Response HYPERTENSION Y HIGH CHOLESTEROL / HYPERLIPIDEMIA Y Immunizations Vaccine Type Date Status Note Provider Nam e and Address Organization Details Recorded Time COVID-19, mRNA, LNP-S, PF, 100 mcg/0.5mL dose or 50 mcg/0.25mL dose 1 completed Not Available [facility] 05/29/2022 05:05:37 COVID-19, mRNA, LNP-S, PF, 100 mcg/0.5mL dose or 50 mcg/0.25mL dose 1 completed Not Available [facility] 05/29/2022 05:05:38 Influenza, split virus, quadrivalent, preservative 1 completed Not Available [facility] 05/29/2022 05:05:38 Influenza, split virus, quadrivalent, PF 9 completed Not Available [facility] 05/29/2022 05:05:38 Influenza, high-dose, trivalent, PF 8 completed Not Available [facility] 05/29/2022 05:05:38 Influenza, split virus, trivalent, PF 4 completed Not Available [facility] 05/29/2022 05:05:38 Past Encounters Encounter ID Performer Location Encounter Start Date Encounter Closed Date Diagnosis/Indication Diagnosis SNOMED-CT Code Diagnosis ICD10 Code Diagnosis IMO Codes Diagnosis Note [id number] Leann Oneill MD Navin_[facility] Internal [address] [address] 07/25/2020 00:00:00 07/25/2020 10:30:24 [id number] Leann Oneill MD [facility] [address] [address] 11/21/2020 00:00:00 11/21/2020 11:24:02 [id number] MD ARLEN Lopez_[facility] [address] [address] 12/07/2020 00:00:00 12/07/2020 08:29:49 [id number] MD ARLEN [facility] Pulmonolo [address] [address] 02/01/2021 00:00:00 02/01/2021 09:16:01 [id number] Leann Oneill MD S_[facility] Internal [address] [place] [address] 03/07/2021 00:00:00 03/07/2021 11:59:20 [id number] Leann Oneill MD S_[facility] Internal Med [address] [facility] [place] [address] 07/06/2021 00:00:00 07/06/2021 13:14:02 [id number] Mert Whitt MD S_[facility] Pulmonolo gy [address] [address] 02/05/2022 00:00:00 02/05/2022 11:31:08 [id number] Leann Oneill MD S_[facility] Internal [address] [facility] [place] [address] 12/06/2022 11:40:07 12/06/2022 13:05:12 Essential hypertension 10927477 I10 watch Hyperlipidemia 71829281 E78.5 labs Obesity 067644709 E66.9 advised to lose more Osteoarthr itis of knee 707842344 M17.9 otc Anemia 236861483 D64.9 stable Ex-smoker 8627850 Z87.89 1 Deep venou s thrombosis 293238680 I82.409 on MEDS FOR LIFE Abnormal testosterone 13 5793571 R94.7 Kidney disease 46757344 N08 seeing nephrology Sleep apnea 71864090 G47 .33 cpap Neuropathy 034675130 G62 .9 start pregabalin Adult heal th examination 736754090 Z00.00 repeat colonoscop y, scheduled soon due to polyppsa- 02/17FLU- 1COV ID Vacc- Has had all 3 vacc Screening for malignant neoplasm of prostate 129327035 Z12.5 Polyp of colon 70720202 K63.5 gets colonoscop y every year Screening for disorder 992278393 Z13.9 [id number] Leann Oneill MD S_[facility] Internal [address] [facility] [address] 02/17/2023 14:01:56 02/17/2023 14:36:53 Melena [id number] K92.1 improved Blood in urine 94596806 R31.9 to get cysto Kidney disease 04291245 N08 seen nephrology , cr now baseline Interstiti al lung disease 038386150 J84.9 he has appt to f/u with pulm, no symptoms [id number] Leann Oneill MD S_[facility] Internal [address] [place] [address] 04/08/2023 11:53:16 04/08/2023 12:38:50 Essential hypertension 92132415 I10 under control Hyperlipidemia 64669802 E78.5 will get labs reports Obesity 152435928 E66.9 advised to lose Osteoarthr itis of knee 873484589 M17.9 otc Anemia 243895667 D64.9 stable Ex-smoker 7942755 Z87.89 1 Deep venou s thrombosis 550854842 I82.409 on MEDS FOR LIFE Abnormal testosterone 13 7166366 R94.7 get labs reports Kidney disease 73158697 N08 seeing nephrology Sleep apnea 58075773 G47 .33 cpap Neuropathy 891813723 G62 .9 pregabalin helps Adult heal th examination 044258272 Z00.00 repeat colonoscop y, scheduled soon due to polyppsa- 2022FLU- OV ID Vacc- Has had all 3 vacc Polyp of colon 91700197 K63.5 gets colonoscop y every year [id number] He Mccormick DPM [facility] [place] [address] [facility] [address] [place] [address] 05/27/2023 09:54:02 05/27/2023 16:57:06 Mass of subcutaneous tissue of toe of left foot 8851257579 6232118 R22.42 left great toefollow up with pcp or oncologyre fused surgery where I have privileges recommend immediate follow up History of malignant neoplasm of skin 252519205 Z85.828 squamous cell on lip [id number] Leann Oneill MD S_[facility] Internal Med [address] [place] [address] 08/05/2023 12:06:26 08/05/2023 12:39:57 Essential hypertension 66984203 I10 under control Hyperlipidemia 85005768 E78.5 under control Obesity 903986639 E66.9 advised to lose Osteoarthr itis of knee 350165267 M17.9 otc Anemia 312428888 D64.9 stable Ex-smoker 5988511 Z87.89 1 Deep venou s thrombosis 189194692 I82.409 meds for life Abnormal testosterone 13 7763430 R94.7 get labs reports Kidney disease 36674442 N08 seeing nephrology Sleep apnea 63361342 G47 .33 cpap Neuropathy 463415079 G62 .9 pregabalin helps Adult heal th examination 830855540 Z00.00 repeat colonoscop y, scheduled soon due to polyppsa- OV ID Vacc- Has had all 3 vacc Polyp of colon 60066102 K63.5 gets colonoscop y Interstiti al lung disease 177144570 J84.9 autoimmune , on meds, seeing pulm at [place] [facility] 61161039 I77. 6 on cytoxan [id number] Leann Oneill MD [facility] Internal [facility] [address] [place] [address] 12/10/2023 11:50:33 12/10/2023 13:11:37 Essential hypertension 95641597 I10 watch Hyperlipidemia 97299718 E78.5 under control Obesity 915108154 E66.9 advised to lose Osteoarthr itis of knee 790922367 M17.9 otc Anemia 846986089 D64.9 stable Ex-smoker 6027172 Z87.89 1 Deep venou s thrombosis 123843175 I82.409 meds for life, Eliquis Abnormal testosterone 13 3646521 R94.7 Kidney disease 35272697 N08 seeing nephrology Sleep apnea 18707052 G47 .33 cpap Neuropathy 921168512 G62 .9 pregabalin helps some Adult heal th examination 132736187 Z00.00 repeat colonoscop y,PSA- OV ID Vacc- Has had all 3 vacc Polyp of colon 81985471 K63.5 needs colonoscop y , not sure when Interstiti al lung disease 543730047 J84.9 autoimmune , on meds, seeing pulm at [place] [facility] 45932906 I77. 6 on cytoxan Screening for malignant neoplasm of prostate 726510077 Z12.5 Screening for disorder 157618921 Z13.9 [id number] Leann Oneill MD [facility] Internal [address] [facility] [place] [address] 04/08/2024 09:06:19 04/08/2024 09:55:47 Essential hypertension 54303220 I10 under control Hyperlipidemia 14613950 E78.5 under control Obesity 318998580 E66.9 advised to lose Osteoarthr itis of knee 011323753 M17.9 otc Anemia 056630069 D64.9 stable Ex-smoker 8070986 Z87.89 1 Deep venou s thrombosis 994227925 I82.409 meds for life, Eliquis Abnormal testosterone 13 2118564 R94.7 Kidney disease 92017625 N08 seeing nephrology Sleep apnea 96081291 G47 .33 cpap Neuropathy 167287390 G62 .9 pregabalin helps Adult heal th examination 208509410 Z00.00 colonoscop y 2022 per [facility]- 2022FLU- 4COV ID Vacc- Has had all 3 vacc Polyp of colon 42407144 K63.5 needs colonoscop y , Interstiti al lung disease 063740391 J84.9 autoimmune , on meds, seeing pulm at [place] [facility] 43907869 I77. 6 on cytoxan Erectile dysfunction 860 414171 F52.21 [id number] Leann Oneill MD [facility] Internal Med [address] [facility] [place] [address] 08/09/2024 10:42:50 08/09/2024 11:27:10 Essential hypertension 88786455 I10 under control Hyperlipidemia 85058158 E78.5 under control, labs 12/22 Obesity 154781729 E66.9 advised to lose Osteoarthr itis of knee 446836497 M17.9 otc Anemia 987938091 D64.9 stable Ex-smoker 0272469 Z87.89 1 Deep venou s thrombosis 329463611 I82.409 meds for life, Eliquis Abnormal testosterone 13 1168050 R94.7 Kidney disease 35604580 N08 seeing nephrology Sleep apnea 13418923 G47 .33 cpap Neuropathy 473029092 G62 .9 getting worse, will get benefit form electric wheel [facility]see [facility] Adult heal th examination 843270484 Z00.00 colonoscop y 2022 per [facility]- 12/10/2023 FLU- 4COV ID Vacc- Has had all 3 vacc Polyp of colon 62897752 K63.5 needs colonoscop y , Interstiti al lung disease 562813380 J84.9 autoimmune , on meds, seeing pulm at [place] [facility] 23972836 I77. 6 on cytoxan Erectile dysfunction 860 118582 F52.21 on meds [id number] Leann Oneill MD [facility] [address] [place] [address] 12/13/2024 14:37:21 12/14/2024 08:44:49 Adult health examination 157904631 Z00.00 Colonoscop y 2022 per [facility]- 12/10/2023 FLU- 4COV ID Vacc- Has had all 3 vacc Screening for disorder 046373357 Z13.9 Erectile dysfunction 860 230805 F52.21 on meds Neuropathy 136177003 G62 .9 getting worse,He can not use motorized wheel chair as his house is small ( it was approved though ) Essential hypertension 93403823 I10 under control Hyperlipidemia 03130802 E78.5 under control, labs 12/22 Obesity 059472783 E66.9 advised to lose Osteoarthr itis of knee 499924416 M17.9 otc Anemia 481090428 D64.9 stable Ex-smoker 8471577 Z87.89 1 Deep venou s thrombosis 002537794 I82.409 meds for life, Eliquis Abnormal testosterone 13 2423881 R94.7 no medsneeded Kidney disease 79728759 N08 seeing nephrology Sleep apnea 69214105 G47 .33 cpap Polyp of colon 02226219 K63.5 colonoscop y in 2022, next in 5 yrs per [facility] Interstiti al lung disease 505698297 J84.9 autoimmune , on meds, seeing pulm at [place] [facility] 77270354 I77. 6 on cytoxan Eruption 494495604 R21 885367 Edema of l ower extremity 345685560 R60.0 94713 needs compressio n socks all the times, helsp to control swelling as well as pain from neuropathy Health Concerns Section Related Observation LastModified by Organization Detai ls LastModified Time None Recorded Concern Status LastModified by Organization Details LastModified Time None Recorded Advance Directives Directive N: paperwork given 12/10/2023 Payers Insurance Date Sequence Insurance Name Policy Number Policy Virk Covered Member ID Virk Member ID Guarantor Name 12/13/2024 1 [place] Britton Nielsen Sr [id number] Britton Nielsen 12/13/2024 2 [employer] (MEDICARE SUPPLEMENT) Britton Nielsen [id number] Britton Nielsen Notes Date Note Type Note Provider Name and Address Organization Details Recorded Time 08/05/2023 text/html Here today for routine f/u, [...] started on meds Leann Oneill MD [address], [place], [address], [place] [employer] 08/05/2023 12:38:15 12/10/2023 text/html Here today for [...] Oneill MD [address], [address], [place], [address], [facility] [employer] 12/10/2023 17:41:09 04/08/2024 text/html Here today for [...] mild arthritis Leann Oneill MD [address], [facility] [address], [place], [address], [facility] [employer] [facility] [employer] 04/08/2024 09:49:23 08/09/2024 text/html Here today for routine 4 month f/u, Last Friday he was diagnosed with e-coli UTI and on antibiotic three times a days and has finished the medication. * would like a electric chair..Help for seniors will help pay for it for him Its getting harder for him to walk much due to neuropathy.When he goes to [facility] to see his specialist, its very hard [...] showed mild arthritis Leann Oneill MD [address] [facility], [address], [place], [address], [place] [facility] [employer] 08/09/2024 11:21:40 12/13/2024 text/html Here today for routine 4 month f/u, PT IS NOT FASTING (medicare) Medicare Wellness Exam Needs a Dermatology referral, has rash on the head then spread to face, neck and chest, mild itching HEARING LOSS- USING HEARING AIDS CAD- triple by-pass surgery, 06/18, on asa, no symptoms HTN- under controlMeds- Labetalol 200 mg bid, Irbesartan 150mg daily, Hyperlipidemia- under good control, watching diet ,Med- Atorvastatin 20 mg qd Obesity- not watching diet Edema- on Furosemide, comes and goes, wearing compression hoseMeds- Furosemide 40 mg qd Arthritis- mostly spine Sleep apnea - compliant to cpapNeuropathy- - not on gabapentin (caused swelling) mostly numbness on the feet , tingling mostly at night ,Meds- Tramadol 50mg, Pregabalin 50mg TID (NEEDS A REFILL ) Testosterone levels were low, has taken patches in the past, last labs 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 using o2 as needed and with cpap Anemia- iron def, bone marrow biopsy neg, H/o pancytopenia- seeing oncology, on meds for bone marrow stimulation H/O ED- Tadalafil helpsMeds- tadalafil 20 mg qd prn (Needs a refill ) DVT- on Eliquis since 11/15 for lifeMeds- Eliquis 5 mg bid HX- bleeding Ulcers / Anemia- sees Dr. Kev Moser. , no more symptoms Ex-smoker- used smoke 2 ppd, for yrs Back pain, thoracic area, x-rays showed mild arthritis Leann Oneill MD [address] [facility], [facility] [address], [place], [address], [place] [facility] [employer] 12/14/2024 12:47:45
--- OUTSIDE RECORDS SUMMARY | 2025-01-11 13:25 | XMS_ITS | Encounter Summary ---
Author Organization [facility] Address [address] [place] [address] Phone Care Team Providers Care Pan Dumper Name Role Phone Scott Oneill MD Primary Care Provider Kev Prince DO Unavailable [phone] Tavo Mishra MD Unavailable [phone] Gilmer Barnard MD Unavailable [phone] Kev Moser MD Unavailable [phone] Encounter Details Date Type Department Care Team (Late st Contact Info) Description 08/11/2020 Telephone [facility] [address] [place] [address] Kev Moser MD [address] [place] [phone] Social History Tobacco Use Types Packs/Day [...] on file Legal Sex Male 3:42 PM CRUISE DIRECTOR Gender Identity Not on file Sexual [...] had labs done Friday this week at [facility]. I have a call out to get those labs faxed over but were there other labs that you needed that [facility] did not draw on Friday? documented in this encounter Plan of Treatment Upcoming Encounters Date Type Department Care Team (Late st Contact Info) Description 02/02/2025 11:00 AM CRUISE DIRECTOR Lab [facility] [address] [phone] Lab, [facility] 02/02/2025 11:15 AM CRUISE DIRECTOR Office Visit [facility] [address] [phone] Kev Moser MD [address] [place] [phone] 02/02/2025 11:30 AM CRUISE DIRECTOR Clinical Support [facility] [address] [phone] Nurse, [facility] documented as of this encounter Visit Diagnoses Not on filedocumented in this encounter Additional Health Concerns Assessment Noted Time PHQ-9 Depression Total Score: 0 08/12/19 21 11:41 AM CDT documented as of this encounter Care Teams Pan Dumper Relationship Specialty Start Date End Date Scott Oneill MD PCP - General Internal Medicine 04/29/17 Kev Prince DO Gastroenterology 04/29/17 12/09/22 Tavo Mishra MD [address] [id number] Internal Medicine 04/29/17 Gilemr Barnard MD [address] [address] Consulting Physician Internal Medicine 08/28/17 4 Kev Moser MD [address] [place] [address] Consulting Physician Oncology 02/09/20 documented as of this encounter
--- OUTSIDE RECORDS SUMMARY | 2025-01-11 13:25 | XMS_ITS | Encounter Summary ---
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
--- OUTSIDE RECORDS SUMMARY | 2025-01-11 13:25 | XMS_ITS | Encounter Summary ---
Author Organization [facility] Address [address] [place] [address] Phone Care Team Providers Care Library Monitor Name Role Phone Scott Oneill MD Primary Care Provider [phone] Encounter Details Date Type Department Care Team [...] on file Legal Sex Male 1:23 AM OUTPATIENT PHYSICAL THERAPIST ASSISTANT Gender Identity Male 12/24/2023 11:25 AM [...] on filedocumented in this encounter Care Teams Library Monitor Relationship Specialty Start Date End Date Scott Oneill MD PCP - General Internal Medicine 04/27/20 documented as of this encounter
--- OUTSIDE RECORDS SUMMARY | 2025-01-11 13:25 | XMS_ITS | Encounter Summary ---
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
--- OUTSIDE RECORDS SUMMARY | 2025-01-11 13:25 | XMS_ITS | Clinical Summary ---
Author Organization [facility] Address [address] [place] [address] Care Team Providers Care Utility Forester Name Role Phone Cee Rios [facility] Primary Care Prov ider Allergies No [...] daily. 2 Active vitamin D2, ergocalciferol , 03721 UNITS capsule Take 1 capsule (50,000 Units [...] (01/30/2023): Added automatically from request for surgery [id number] Personal history of colonic polyps 01/30/2023 Overview (01/30/2023): Added automatically from request for surgery [id number] Positive colorectal cancer screening using Colog uard test 10/08/2021 Overview (10/08/2021): Added automatically from request for surgery [id number] Family History Medical History Relation Comments cancer,small [...] Comments Blood Pressure 128/53 06/02/2023 9:55 AM TRENCH DIGGER HELPER Pulse 63 06/02/2023 9:33 AM TRENCH DIGGER HELPER Temperature 36 C (96.8 F) 06/02/2023 9:26 AM TRENCH DIGGER HELPER Respiratory Rate 20 06/02/2023 8:33 AM TRENCH DIGGER HELPER Oxygen Saturation 97% 06/02/2023 10:00 AM TRENCH DIGGER HELPER Inhaled Oxygen Concentration - - Weight 101.2 kg (223 lb) 05/23/2023 2:05 PM TRENCH DIGGER HELPER Height 166.4 cm (5' 5.5) 05/23/2023 2:05 PM TRENCH DIGGER HELPER Body Mass Index 36.54 05/23/2023 2:05 PM TRENCH DIGGER HELPER Plan of Treatment Health Maintenance Due Date Last Done Comments Hepatitis C 02/14/1972 DTaP, Tdap and Td Vaccines (1 - Tdap) 1973 Zoster Vaccines (1 of 2) 02/14/2004 Annual Medicare Wellness Visit 2019 Pneumococcal Vaccine: 50+ Years (2 of 2 - PPSV23) 02/09/2022 02/09/2021, 05/01/2017 PHQ-2 (Physician Unga) 03/31/2024 01/29/2023 COVID-19 Vaccine ( season) 2024 02/09/2021, 07/11/2020, 05/13/2020 Influenza Adult (#1) 2024 12/29/2021, 02/21/2021, 05/13/2020, Additional history exists RSV [...] Recently Relevant to Health Maintenance Insurance MEDICARE [facility] Care Teams Utility Forester Relationship Specialty Start Date End Date Cee Rios FNP [address] [place] [address] PCP - General NURSE PRACTITIONER 12/10/22
--- OUTSIDE RECORDS SUMMARY | 2025-01-11 13:25 | XMS_ITS | Encounter Summary ---
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
--- OUTSIDE RECORDS SUMMARY | 2025-01-11 13:25 | XMS_ITS | Encounter Summary ---
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
== END 2025-01-11 11:19 | disposition home or self-care (01) ==
PROVIDERS: PCP Internal Medicine; Visit Provider Internal Medicine Nephrology
DX: N18.4 Chronic kidney disease, stage 4 (severe) (principal); M31.30 Wegener's granulomatosis without renal involvement
CPT/HCPCS: 36415; 80069; 82570; 83970; 84156; 85027; 86037

== ENCOUNTER 2025-01-25 12:32 | Outpatient (CLI) | payer MEDICARE, OTHER, SELFPAY ==
--- OUTSIDE RECORDS SUMMARY | 2001-03-05 08:45 | XMS_ITS | Continuity of Care Document ---
Author Organization [facility] Address [address] [place] [address] Phone Care Team Providers Care Engineering Intern Name Role Phone Renny Garcia Unavailable Unavailable Advance Directives Directive Yes / No Effective Date File Name No Information Encounters Encounter Description Practice Location Reason(s) For Visit Diagnoses Date Provider Providers Copied on Encounter Merged with [facility], [address], [place], [place], [id number], [place] tel:[phone] SEC [facility] [place] No Information Dec-0 6-200 1 E[address]bert[address]y Edward. [address] [facility] [place] , [address], [place], [address], [place]. tel:[phone] Family History Family Member Type Diagnosis Age At Onset No Information Payers Payer name Insurance type Covered republican ID Authoriza tion(s) [place] [id number] Social History Type Description Quantity Date Captured Comments Sex Male Smoking Status No Information Chief Complaint And Reason For Visit No Information Reason For Referral Reason For Referral No Information History Of Present Illness Encounter Date Complaint History Of Prese nt Illness No Information Functional Status Date Functional Assessmen t No Information Instructions Date Instruction Additional Infor mation No Information Assessments Type Assessment Date No Information Patient Care Teams Name Effective Dates (start - stop) Status Members No Information
[2025-01-25 12:56] LABS: Add Urine Microscopic? NO; Appearance Urine Clear (Clear); Glucose Urine UA Negative (Negative); Leukocyte Esterase Ur Negative LEU/UL (Negative); Nitrate Urine Negative (Negative); Specific Grav Ur 1.010 (1.001-1.035)
--- OUTSIDE RECORDS SUMMARY | 2025-01-25 14:13 | XMS_ITS | Clinical Summary ---
Author Organization [facility] Address [address] [place] [address] Care Team Providers Care Stylist Apprentice Name Role Phone Scott Oneill MD Primary Care Provider [phone] Allergies No known active allergies Medications atorvastatin [...] on file Legal Sex Male 9:59 AM DRYER FEEDER Gender Identity Not on file Sexual Orientation Not on file Last Filed Vital Signs Vital Sign Reading Time Taken Comments Blood Pressure 146/58 05/02/2017 10:20 AM DRYER FEEDER Pulse 103 05/02/2017 10:20 AM DRYER FEEDER Temperature 36.9 C (98.5 F) 05/02/2017 10:20 AM DRYER FEEDER Respiratory Rate 18 05/02/2017 10:20 AM DRYER FEEDER Oxygen Saturation - - Inhaled Oxygen Concentration - - Weight 97.1 kg (214 lb) 05/02/2017 10:20 AM DRYER FEEDER Height 166.4 cm (5' 5.5) 05/02/2017 10:20 AM CS T Body Mass Index 35.07 05/02/2017 10:20 AM DRYER FEEDER Plan of Treatment Health Maintenance Due Date Last Done Comments DTAP/TDAP/TD VACCINES (1 - Tdap) 1973 COLORECTAL SCREENING 1999 Colorectal Cancer Screening 1999 FIT-DNA Q 3 years 1999 FIT/FOBT Q 1 year 1999 Flex Sig/CT Colonography Q 5 years 1999 PNEUMOCOCCAL VACCINE 50+ YEARS (1 of 1 - PCV) 02/14/20 04 RSV VACCINE (60+ or ) (1 - Risk 50-74 years 1-dose series) 02/14/2004 ZOSTER VACCINE (1 of 2) 02/14/2004 INFLUENZA VACCINE (#1) 2024 Insurance [facility] BLUE ACCESS CHOICE Care Teams Stylist Apprentice Relationship Specialty Start Date End Date Scott Oneill MD [address] [phone] PCP - General Internal Medicine 05/02/17
--- OUTSIDE RECORDS SUMMARY | 2025-01-25 14:13 | XMS_ITS | Clinical Summary ---
Author Organization [facility] [address] Address [address] [place] [address] Care Team Providers Care Lead Technologist In Cytogenetics Name Role Phone Scott Oneill MD Primary Care Provider [phone] Allergies No known active allergies Medications potassium [...] (muscle pain) 20 tablet 09/07/19 25 Active methylPREDNISol one (MEDROL DOSEPACK) 4 mg Dosepack Take as directed on package 1 packet 01/13/20 25 Active mycophenolate mofetil (CELLCEPT) 500 mg tablet Take 1 tablet by mouth twice daily 60 tablet 01/25/20 25 Active mycophenolate mofetil (CELLCEPT) 500 mg tablet Take 1 tablet by mouth twice daily 60 tablet 10/19/19 25 025 Discontinued Active Problems Problem Noted Date [...] Encounters Date Type Department Care Team Description 01/13/2025 Results Follow-Up [facility] [address] [facility] [address]th [place] [address] [place] [address] Tiffanie Weiss MD XR Knee Right 4 or More Views 01/12/2025 3:13 PM CDT - 01/12/2025 11:59 PM CDT Hospital Encounter [facility] [address] [place] [address] Tiffanie Weiss MD Right knee pain, unspecified chronicity Discharge Disposition: Discharge to home or self care 01/12/2025 2:00 PM CDT Office Visit [facility] [address] [place] [address] Advanced Medicine 5th [place] [address] [place] [address] Osteoarthritis of lumbar spine, unspecified spinal osteoarthritis complication status (Primary Dx); Radicular syndrome of right lower extremity; Right knee pain, unspecified chronicity 11/16/2024 Orders Only [facility] [address] [place] [address] [address] [place] [phone] Rivera Veras MD 11/16/2024 Documentation [facility] [address] [place] [address] [address] [place] [phone] Marce Bernal MD Labs Only 11/12/[facility]24 [facility] [address]th [place] [address] [place] [phone] Margret Cobb CMA 11/11/2024 Documentation [facility] Medicine Pulmonary [address] [facility] [address]th [place] [address] [place] [address] Misty Bermudez RN 11/11/2024 Orders Only [facility] Medicine Pulmonary [address] [facility] 8th [place] [address] [place] [address] Provider, MD Rivera from Last 3 Months Surgical History Surgery [...] on file 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 Gender Identity Male 12/24/2023 11:25 AM CDT Sexual Orientation Straight 12/24/2023 11 :25 AM CDT 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 Start Date Job End Date 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, 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, 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 Not on file Not on file Not on file Obstetrics History Last Filed Vital Signs Vital Sign Reading Time Taken Comments Blood Pressure 161/71 01/12/2025 1:53 PM CDT Pulse 67 01/12/2025 1:53 PM CDT Temperature 36.7 C (98.1 F) 01/12/2025 1:53 PM CDT Respiratory Rate 18 08/05/2024 2:30 PM CDT Oxygen Saturation 99% 01/12/2025 1:53 PM CDT Inhaled Oxygen Concentration - - Weight 105.2 kg (232 lb) 01/12/2025 1:53 PM CDT Height 165.1 cm (5' 5) 01/12/2025 1:53 PM CDT Body Mass Index 38.61 01/12/2025 1:53 PM CDT Plan of Treatment Health Maintenance [...] Assessment 07/19/2021 07/19/2020 Influenza Vaccine (#1) 2024 , 02/21/2021, 05/13/2020, Additional history exists Procedures Procedure Name Priority Date/Time Associated Diagnosis Comments SCAN - LABS Routine 01/13/2025 3:54 PM CDT XR KNEE RIGHT 4 OR MORE VIEWS Schedule Routine, Read Routine (OP Routine) 01/12/2025 3:32 PM CDT Right knee pain, unspecified chronicity CBC WITH AUTO DIFFERENTIAL Routine 11/16/2024 2:18 PM CDT SCAN - LABS Routine 11/11/2024 2:54 PM CDT CBC WITH AUTO DIFFERENTIAL Routine 11/11/2024 ANCA VASCULITIS PANEL Routine 11/11/2024 from Last 3 Months Results * SCAN - LABS (01/13/2025 3:54 PM CDT) us Notinfile Unknown Final Result EXTERNAL LAB * XR Knee Right 4 or More Views (01/12/2025 3:32 PM CDT) Anatomical Region Laterality Modality Lower Extremities, Knee Right Computed Radiography 01/12/2025 4:02 PM CDT Impressions 01/12/2025 4:02 PM CDT Moderate medial compartment predominant tricompartmental right knee osteoarthritis. Electronically signed by: Matthew Chung M.D. Narrative 01/12/2025 4:02 PM CDT EXAMINATION: XR KNEE RIGHT 4 OR MORE VIEWS HISTORY: Right knee osteoarthritis FINDINGS: 4 views of the right knee were performed without prior comparison. There is moderate medial compartment predominant tricompartmental right knee osteoarthritis. There is a small effusion. Atherosclerotic vascular calcifications are noted. There is no acute fracture. Procedure Note Matthew Chung MD PhD - 01/12/2025 EXAMINATION: XR KNEE RIGHT 4 OR MORE VIEWS HISTORY: Right knee osteoarthritis FINDINGS: 4 views of the right knee were performed without prior comparison. There is moderate medial compartment predominant tricompartmental right knee osteoarthritis. There is a small effusion. Atherosclerotic vascular calcifications are noted. There is no acute fracture. IMPRESSION: Moderate medial compartment predominant tricompartmental right knee osteoarthritis. Electronically signed by: Matthew Chung M.D. Tiffanie Weiss MD IMG XR PROCEDURES Final Result * CBC with auto differential (11/16/2024 2:18 PM CDT) Blood Historical Provider LAB BLOOD ORDERABLES Devorah l Result * SCAN - LABS (11/11/2024 2:54 PM CDT) Historical Provider Final Res ult EXTERNAL LAB * ANCA vasculitis panel (11/11/2024) Blood Tiffanie Weiss MD LAB BLOOD ORDERABLES [...] Resu lt - Final Performing Organization Address City/[facility] Co de Phone Number EXTERNAL LAB from Last 3 Months Insurance MEDICARE [facility] Address: [id number] [place] [address] MEDICARE [facility] [place] [address] [facility]IC[facility] MEDICARE [facility] Address: [address] [address] [place] [address] [facility] [place] [address] Advance Directives For more information, please contact: [phone] * Full Code (Latest Code Status on File) Date Activated Date Inactivated Comments 07/17/2020 8:05 PM 07/19/2020 7:41 PM * Full Code Date Activated Date Inactivated Comments 06/08/2020 6:02 PM 06/15/2020 7:20 PM Healthcare Agents on File Name Relationship Healthcare Agent Relationship Communication Shyann Nielsen Spouse First Alternat e Health Care Agent Care Teams Lead Technologist In Cytogenetics Relationship Specialty Start Date End Date Scott Oneill MD PCP - General Internal Medicine 04/27/20
--- OUTSIDE RECORDS SUMMARY | 2025-01-25 14:14 | XMS_ITS | Encounter Summary ---
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
--- OUTSIDE RECORDS SUMMARY | 2025-01-25 14:14 | XMS_ITS | Encounter Summary ---
Author Organization [facility] Address [address] [place] [address] Phone Care Team Providers Care Manufacturing Process Technician Name Role Phone Scott Oneill MD Primary Care Provider Tavo Mishra MD Unavailable [phone] Gilmer Barnard MD Unavailable [phone] Kev Moser MD Unavailable [phone] Reason for Visit * Reason Comments Medication Refill Encounter Details Date Type Department Care Team (Late st Contact Info) Description 08/26/2023 Refill [facility] [address] [address] Kev Moser MD [address] [place] [address] Medication Refill Social History Tobacco Use [...] on file Legal Sex Male 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 Gender Identity Not on file Sexual [...] st Contact Info) Description 02/02/2025 11:00 AM GERMINATION TESTING MANAGER Lab [facility] [address] [phone] Lab, [facility] 02/02/2025 11:15 AM GERMINATION TESTING MANAGER Office Visit [facility] [address] [phone] Kev Moser MD [address] [place] [phone] 02/02/2025 11:30 AM GERMINATION TESTING MANAGER Clinical Support [facility] [address] [phone] Nurse, [facility] documented as of this encounter Visit Diagnoses Not on filedocumented in this encounter Additional Health Concerns Assessment Noted Time PHQ-9 Depression Total Score: 0 11/25/19 21 11:34 AM CDT documented as of this encounter Care Teams Manufacturing Process Technician Relationship Specialty Start Date End Date Scott Oneill MD PCP - General Internal Medicine 04/29/17 Tavo Mishra MD [address] [place] [phone] Internal Medicine 04/29/17 Gilmer Barnard MD [address] [place] [address] [phone] Consulting Physician Internal Medicine 08/28/17 4 Kev Moser MD [address] [place] [phone] Consulting Physician Oncology 02/09/20 documented as of this encounter
--- OUTSIDE RECORDS SUMMARY | 2025-01-25 14:14 | XMS_ITS | Encounter Summary ---
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
--- OUTSIDE RECORDS SUMMARY | 2025-01-25 14:14 | XMS_ITS | Encounter Summary ---
Author Organization [facility] Address [address] [place] [address] Phone Care Team Providers Care Put In Beat Adjuster Name Role Phone Scott Oneill MD Primary Care Provider Kev Prince DO Unavailable [phone] Tavo Mishra MD Unavailable [phone] Gilmer Barnard MD Unavailable [phone] Kev Moser MD Unavailable [phone] Encounter Details Date Type Department Care Team (Late st Contact Info) Description 08/11/2020 Telephone [facility] [address] [place] [address] Kev Moser MD [address] [place] [phone] Social History Tobacco Use Types Packs/Day [...] file 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 I have a call out to get those labs faxed over but were there other labs that you needed that [facility] did not draw on Friday? documented in this encounter Plan of Treatment Upcoming Encounters Date Type Department Care Team (Late st Contact Info) Description 02/02/2025 11:00 AM LEAD SECURITY OFFICER Lab [facility] [address] [phone] Lab, [facility] 02/02/2025 11:15 AM LEAD SECURITY OFFICER Office Visit [facility] [address] [phone] Kev Moser MD [address] [place] [phone] 02/02/2025 11:30 AM LEAD SECURITY OFFICER Clinical Support [facility] [address] [phone] Nurse, [facility] documented as of this encounter Visit Diagnoses Not on filedocumented in this encounter Additional Health Concerns Assessment Noted Time PHQ-9 Depression Total Score: 0 08/12/19 21 11:41 AM CDT documented as of this encounter Care Teams Put In Beat Adjuster Relationship Specialty Start Date End Date Scott Oneill MD PCP - General Internal Medicine 04/29/17 Kev Prince DO Gastroenterology 04/29/17 12/09/22 Tavo Mishra MD [address] [phone] Internal Medicine 04/29/17 Gilmer Barnard MD [address] [address] Consulting Physician Internal Medicine 08/28/17 4 Kev Moser MD [address] [place] [phone] Consulting Physician Oncology 02/09/20 documented as of this encounter
--- OUTSIDE RECORDS SUMMARY | 2025-01-25 14:14 | XMS_ITS | Clinical Summary ---
Author Organization [facility] Address [address] [address] Phone Care Team Providers Care Feather Stitcher Name Role Phone Scott Oneill MD Primary Care Provider [phone] Tavo Mishra MD Unavailable [phone] Kev Moser MD Unavailable [phone] Allergies No known active allergies Medications Calcium [...] 2 times daily. Active ergocalciferol (VITAMIN D) 56184 UNIT Capsule Take 50,000 Units by mouth [...] Disease involving a Thrombosis or an Embolism 2024 Discontinued(R eorder) Active Problems Patient Care Coordination No te Formatting of this note migh t be different from the original. 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 05/23/2017 Hypertension Encounters Date Type Department Care Team Description 01/05/2025 11:30 AM CDT Clinical Support [facility] [address] [phone] Nurse, Gricelda Lopes Stage 3a chronic kidney disease (Primary Dx); Vitamin B 12 deficiency 01/05/2025 11:15 AM CDT Lab [facility] [address] [address] Lab, [facility] Anemia in stage 3a chronic kidney disease 01/05/2025 Travel 01/02/2025 Refill [facility] [address] [address] Tanvi Tobar APRN, STAFF ELECTRICAL ENGINEER Medication Refill 12/08/2024 11:30 AM CDT Clinical Support [facility] [address] [phone] Nurse, [facility] Stage 3a chronic kidney disease (HCC) (Primary Dx); Vitamin B 12 deficiency 12/08/2024 11:15 AM CDT Office Visit [facility] [address] [address] Tanvi Tobar APRN, STAFF ELECTRICAL ENGINEER Anemia in stage 3a chronic kidney disease (HCC) (Primary Dx); Vitamin B 12 deficiency; Iron deficiency anemia, unspecified iron deficiency anemia type 12/08/2024 11:00 AM CDT Lab [facility] [address] [phone] Lab, [facility] Iron deficiency anemia due to sideropenic dysphagia; Vitamin B 12 deficiency 12/08/2024 Travel 11/19/2024 11:15 AM CDT Office Visit [facility] [address] [phone] Kev Moser MD 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); Other autoimmune hemolytic anemia 11/19/2024 Travel 11/15/2024 Telephone [facility] [address] [address] Kev Moser MD 10/27/2024 11:30 AM CDT Clinical Support [facility] [address] [address] Nurse, [facility] Vitamin B 12 deficiency (Primary Dx) 10/27/2024 11:15 AM CDT Office Visit [facility] [address] [phone] Sindi Qiu, SAND MILL OPERATOR FACING SAND, STAFF ELECTRICAL ENGINEER Other autoimmune hemolytic anemia (Primary Dx); Anemia in stage 3a chronic kidney disease (HCC); Iron deficiency anemia due to sideropenic dysphagia; Vitamin B 12 deficiency 10/27/2024 11:05 AM CDT Lab [facility] [address] [place] [phone] Lab, [facility] Anemia in stage 3a chronic kidney disease [...] on file Legal Sex Male 3:42 PM GENERAL ACCOUNTING CLERK Gender Identity Not on file Sexual [...] st Contact Info) Description 02/02/2025 11:00 AM GENERAL ACCOUNTING CLERK Lab [facility] [address] [phone] Lab, [facility] 02/02/2025 11:15 AM GENERAL ACCOUNTING CLERK Office Visit [facility] [address] [phone] Kev Moser MD [address] [place] [phone] 02/02/2025 11:30 AM GENERAL ACCOUNTING CLERK Clinical Support [facility] [address] [phone] Nurse, [facility] Health Maintenance Due Date Last Done Comments Hepatitis C Virus (HCV) Screening 1954 TdaP Immunization 1954 Zoster Immunization (1 of 2) 1973 Cologuard 1999 Immunochemical Fecal Occult Blood 1999 Respiratory Syncytial Virus (RSV) Immunization (Adult) (1 - Risk 50-74 years 1-dose series) 02/14/2004 AAA Screening Ultrasound 2019 Medicare Initial AWV [...] 12/08/2024 11:11 AM CDT ANCA (VASCULITIS) [place], [place] [id number] Routine 12/08/2024 11:11 AM CDT CULTURE, URINE [...] WBC 8.2 4.0 - 10.0 10*3/uL [facility] HGB 10.5(L) 13.7 - 17.5 g/dL [facility] HCT 34.1(L) 40.1 - 51.0 % [facility] PLT 199 163 - 369 10*3/uL [facility] MPV 9.6 9.4 - 12.4 fL [facility] RBC 3.78(L) 4.63 - 6.08 10*6/uL [facility] MCV 90 79 - 95 fL [facility] MCH 27.8 25.6 - 32.2 pg [facility] MCHC 30.8(L) 32.2 - 36.5 g/dL [facility] RDW 14.6(H) 11.6 - 14.4 % [facility] Absolute Neutrophil Count 6,708 cells/uL [facility] Absolute Seg Count 6,708(H) 1,440 - 6,600 cells/uL [facility] Absolute Lymph Count 736(L) 760 - 4,000 cells/uL [facility] Absolute [place] Count 491 160 - 1,200 cells/uL [facility] Absolute Eos Count 164 0 - 300 cells/uL [facility] Absolute Baso Count 82 0 - 100 cells/uL [facility] Segmented Neutrophils 82(H) 36 - 66 % [facility] Lymphocytes 9(L) 19 - 40 % [facility] Monocytes 6 4 - 12 % [facility] Eosinophils 2 0 - 3 % [facility] Basophils 1 0 - 1 % [facility] WBC Estimate Normal [facility] Platelet Estimate Normal CA [facility]ER [facility] RBC Morphology Abnormal [facility] Poikilocytosis 1+ CANCE R [facility] Blood 01/05/2025 10:5 1 AM CDT Narrative [facility] - 01/05/2025 1:06 PM CDT Release to patient->Immediate Tanvi Tobar SAND MILL OPERATOR FACING SAND, STAFF ELECTRICAL ENGINEER HEMATOLOGY ORDERABLES Final Result [facility] [place] [address], * ANCA (VASCULITIS) [place], [place] 197407 (12/08/2024 11:11 AM CDT) ANTI-MPO ANTIBODIES 0.2 0.0 - 0.9 UNITS [facility] ANTI-PR3 ANTIBODIES <0.2 0.0 - 0.9 UNITS [facility] CYTOPLASMIC (C-ANCA) <1:20 NEG:<1:20 TITER [facility] PERINUCLEAR (P-ANCA) <1:20 NEG:<1:20 TITER [facility] Comment: THE PRESENCE OF POSITIVE FLUORESCENCE EXHIBITING P-ANCA OR C-ANCA PATTERNS ALONE IS NOT SPECIFIC FOR THE DIAGNOSIS OF FADI'S GRANULOMATOSIS (WG) OR MICROSCOPIC POLYANGIITIS. DECISIONS ABOUT TREATMENT SHOULD NOT BE BASED SOLELY ON ANCA IFA RESULTS. THE INTERNATIONAL ANCA GROUP CONSENSUS RECOMMENDS FOLLOW UP TESTING OF POSITIVE SERA WITH BOTH GA- 3 AND MPO-ANCA ENZYME IMMUNOASSAYS. MANY 5% SERUM SAMPLES ARE POSITIVE ONLY BY EIA. REF. AM J CLIN PATHOL 1999;111:507-513. ATYPICAL PANCA <1:20 NEG:<1:20 TITER [facility] Comment: THE ATYPICAL PANCA PATTERN HAS BEEN OBSERVED IN A SIGNIFICANT PERCENTAGE OF PATIENTS WITH ULCERATIVE COLITIS, PRIMARY SCLEROSING CHOLANGITIS AND AUTOIMMUNE HEPATITIS. 12/08/2024 11:1 1 AM CDT Narrative [facility] - 12/10/2024 8:18 PM CDT TESTING PERFORMED AT: [] LAB[address], [address], PHONE: [phone], EMPLOYEE DEVELOPMENT DIRECTOR: SHOAIB OCAMPO MD TESTING PERFORMED AT: [] [facility], [address] [place] [address], [address], PHONE: [phone], EMPLOYEE DEVELOPMENT DIRECTOR: NAVEEN VEGA, PHD Tiffanie Weiss MD LAB SEND OUTS Final Result Performing Organization Address [facility]/ZIP Co de Phone Number [facility] [address] [place] [address], * (ABNORMAL) IRON W/ IRON BINDING CAPACITY [place] (12/08/2024 11:11 AM CDT) IRON 65 50 - 212 ug/dL [facility] UIBC 181 155 - 355 ug/dL [facility] TIBC 246(L) 261 - 478 ug/dl [facility] % Saturation 26 20 - 50 % [facility] 12/08/2024 11:1 1 AM CDT [facility] - 12/08/2024 12:09 PM CDT Release to patient->Immediate Sindi Qiu SAND MILL OPERATOR FACING SAND, STAFF ELECTRICAL ENGINEER LAB SEND OUTS Final Result Performing Organization Address City/[facility]/ZIP Co de Phone Number [facility] [address] [place] [address], [place] [phone] * (ABNORMAL) URINALYSIS WITH MICROSCOPIC, C/S IF INDICATED [place] (12/08/2024 11:11 AM CDT) Urine Color Yellow Straw-Yel low [facility] Urine Clarity Hazy(A) Clear [facility] Urine Glucose NEG NEG mg/dL [facility] Urine Bilirubin NEG NEG mg/dL [facility] Urine Ketones NEG NEG mg/dL [facility] Urine Specific Drummonds 1.010(L) 1.015 - 1.020 [facility] Urine Blood NEG NEG mg/L [facility] Urine pH 6.0 5.0 - 8.0 [pH] [facility] Urine Protein NEG NEG mg/dL [facility] Urine Urobilinogen 0.2 0.2 - 1.0 mg/dL [facility] Urine Nitrite NEG NEG [facility] Urine Leukocytes NEG NEG [facility] Urine Epithelial Cells Few None,Rare ,Few /LPF [facility] Urine Mucus Few(A) None /LPF [facility] Urine Cast None None /LPF [facility] Urine Bacteria Rare(A) None /HPF [facility] Urine Crystal None None /LPF [facility] Urine White Blood Cells 5-10(A) 0 - 4 /HPF [facility] Urine Red Blood Cells 0-2 0 - 2 /HPF [facility] 12/08/2024 11:1 1 AM CDT Tiffanie Weiss MD LAB SEND OUTS Final Result [facility] [address] [address], [place] [phone] * VITAMIN B12 (12/08/2024 11:11 AM CDT) Vitamin B12 432 180 - 914 pg/mL [facility] Blood 12/08/2024 11:1 1 AM CDT [facility] - 12/09/2024 2:38 PM CDT Release to patient->Immediate Sindi Qiu APRN, STAFF ELECTRICAL ENGINEER CHEMISTRY ORDERABLES Final Result [facility] [address] [place] [address], * UR MICROALBUMIN/CREATININE RATIO RANDOM (12/08/2024 11:11 AM CDT) CREATININE, URINE 75.8 NOT ESTAB. MG/DL [facility] MICROALBUMIN, URINE 11.9 NOT ESTAB. UG/ML [facility] MICROALB/CREAT RATIO 16 0 - 29 MG/G CREAT [facility] Comment: NORMAL: 0 - 29 MODERATELY INCREASED: 30 - 300 SEVERELY INCREASED: >300 12/08/2024 11:1 1 AM CDT [facility] - 12/09/2024 11:08 AM CDT TESTING PERFORMED AT: [] [facility], [address] [place] [address], [address], PHONE: [phone], EMPLOYEE DEVELOPMENT DIRECTOR: NAVEEN VEGA, PHD Tiffanie Weiss MD URINE ORDERABLES Final Result Performing Organization Address City/[facility]/ZIP Co de Phone Number [facility] [address] [place] [address], * FOLIC ACID (FOLATE) (12/08/2024 11:11 AM CDT) Folate 12.61 >=5.90 ng/mL [facility] Blood 12/08/2024 11:1 1 AM CDT [facility] - 12/09/2024 2:38 PM CDT Release to patient->Immediate IS THE PATIENT REQUIRED TO BE FASTING FOR 12 HOURS?->No us Sindi Qiu APRN, STAFF ELECTRICAL ENGINEER CHEMISTRY ORDERABLES Final Result Performing Organization Address City/[facility] Co de Phone Number [facility] Cancer Care [address] [address], [place] [phone] * FERRITIN (12/08/2024 11:11 AM CDT) Pathologist [facility] Ferritin 319 24 - 336 ng/mL [facility] Blood 12/08/2024 11:1 1 AM CDT Narrative [facility] - 12/09/2024 2:38 PM CDT Release to patient->Immediate Sindi Qiu APRN, STAFF ELECTRICAL ENGINEER CHEMISTRY ORDERABLES Final Result Performing Organization Address [facility] Co de Phone Number [facility] Cancer Care [address] [address], [place] [phone] * (ABNORMAL) CULTURE, URINE (12/08/2024 11:11 AM CDT) [facility] URINE CULTURE, ROUTINE FINAL REPORT(A) [facility] RESULT 1 ESCHERICHIA COLI(A) [facility] Comment: CEFAZOLIN WITH AN JOSE <=16 PREDICTS SUSCEPTIBILITY TO THE ORAL AGENTS CEFACLOR, CEFDINIR, CEFPODOXIME, CEFPROZIL, CEFUROXIME, CEPHALEXIN, AND LORACARBEF WHEN USED FOR THERAPY OF UNCOMPLICATED URINARY TRACT INFECTIONS DUE TO E. COLI, KLEBSIELLA PNEUMONIAE, AND PROTEUS MIRABILIS. 10,000-25,000 COLONY FORMING UNITS PER ML ANTIMICROBIAL SUSCEPTIBILITY COMMENT [facility] Comment: S = SUSCEPTIBLE; I = INTERMEDIATE; [...] S 12/08/2024 11:1 1 AM CDT Narrative [facility] - 12/13/2024 3:06 AM CDT TESTING PERFORMED AT: [] [facility], [address] [place] [address], [place], [address], PHONE: [phone], EMPLOYEE DEVELOPMENT DIRECTOR: NAVEEN VEGA, PHD Tiffanie Weiss MD MICROBIOLOGY - GENERAL ORDERABLE S Final Result [facility] [place] [address], * (ABNORMAL) CMP (COMPREHENSIVE METABOLIC PANEL) (12/08/2024 11:11 AM CDT) Glucose 125(H) 70 - 105 mg/dL [facility] Blood Urea Nitrogen 53(H) 7 - 25 mg/dL [facility] Creatinine 2.6(H) 0.7 - 1.3 mg/dL [facility] Sodium 139 136 - 145 mEq/L [facility] Potassium 4.4 3.5 - 5.1 mEq/L [facility] Chloride 106 98 - 107 mEq/L [facility] Bicarbonate 21 21 - 31 mEq/L [facility] Total Bilirubin 0.5 0.3 - 1.0 mg/dL [facility] Alk. Phosphatase 67 34 - 104 U/L [facility] Aspartate Aminotransferase 9(L) 13 - 39 U/L [facility] Alanine Aminotransferase 10 7 - 52 U/L [facility] Total Protein 5.9(L) 6.4 - 8.9 g/dL [facility] Albumin 3.8 3.5 - 5.7 g/dL [facility] Calcium 8.0(L) 8.6 - 10.3 mg/dL [facility] Anion Gap 16.4(H) 7.0 - 15.0 mEq/L [facility] Globulin 2.1 2.0 - 3.5 g/dL [facility] EGFR 26(L) >60 ml/min/1. 73m2 [facility] Comment: This eGFR is calculated using 2020 CKD-EPI Creatinine equation without race modifier based on the NKF-ASN task force recommendations Equation: lMEZ=235*min(SCr/k,1)a*max(SCr/k,1)-1.200*0.9938Age*1.012 (if female), where SCr is serum creatinine, k is 0.7 for females and 0.9 for males, and a is -0.241 for females and -0.302 for males Blood 12/08/2024 11:1 1 AM CDT Narrative [facility] - 12/08/2024 12:09 PM CDT Release to patient->Immediate IS THE PATIENT REQUIRED TO BE FASTING FOR 8 HOURS?->No Sindi Qiu APRN, STAFF ELECTRICAL ENGINEER CHEMISTRY ORDERABLES Final Result [facility] [address] [place] [address], from Last 3 Months Insurance MEDICARE MEDICARE [facility] Care Teams Feather Stitcher Relationship Specialty Start Date End Date Scott Oneill MD PCP - General Internal Medicine 04/29/17 Tavo Mishra MD [address] [address] Internal Medicine 04/29/17 Kev Moser MD [address] [place] [phone] Consulting Physician Oncology 02/09/20
--- OUTSIDE RECORDS SUMMARY | 2025-01-25 14:14 | XMS_ITS | Encounter Summary ---
Author Organization [facility] Address [address] [place] [address] Phone Care Team Providers Care Log Raft Worker Name Role Phone Bia Oneill MD Primary Care Provider [phone] Reason for Visit * Reason Comments Med Refill Encounter Details Date Type Department Care Team (Late st Contact Info) Description 05/27/2021 Refill [facility] Nephrology and Hypertension [address] [facility], [address] [address] Gilmer Barnard MD [address] [facility], [address] [place] [address] Social History Tobacco Use Types Packs/Day Years [...] on file Legal Sex Male 10:04 AM [facility] Gender Identity Not on file Sexual Orientation Not on file documented as of this encounter Plan of Treatment Not on file documented as of this encounter Visit Diagnoses Not on filedocumented in this encounter Care Teams Log Raft Worker Relationship Specialty Start Date End Date Bia Oneill MD [address] [facility] [address] [place] [address] PCP - General Internal Medicine 07/16/18 documented as of this encounter
--- OUTSIDE RECORDS SUMMARY | 2025-01-25 14:14 | XMS_ITS | Encounter Summary ---
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
--- OUTSIDE RECORDS SUMMARY | 2025-01-25 14:14 | XMS_ITS | Encounter Summary ---
Author Organization [facility] Address [address] [place] [address] Phone Care Team Providers Care Flexible Shaft Winder Name Role Phone Scott Oneill MD Primary Care Provider [phone] Encounter Details Date Type Department Care Team [...] on file Legal Sex Male 1:23 AM CONTENT PRODUCTION SPECIALIST Gender Identity Male 12/24/2023 11:25 AM [...] on filedocumented in this encounter Care Teams Flexible Shaft Winder Relationship Specialty Start Date End Date Scott Oneill MD PCP - General Internal Medicine 04/27/20 documented as of this encounter
--- OUTSIDE RECORDS SUMMARY | 2025-01-25 14:14 | XMS_ITS | Encounter Summary ---
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
--- OUTSIDE RECORDS SUMMARY | 2025-01-25 14:14 | XMS_ITS | Encounter Summary ---
Author Organization [facility] Address [address] [place] [address] Phone Care Team Providers Care General Scrap Worker Name Role Phone Scott Oneill MD Primary Care Provider [phone] Tavo Mishra MD Unavailable [phone] Gilmer Barnard MD Unavailable [phone] Kev Moser MD Unavailable [phone] Reason for Visit * Reason Comments Medication Refill Encounter Details Date Type Department Care Team (Late st Contact Info) Description 07/27/2023 Refill [facility] [address] [address] Kev Moser MD [address] [place] [phone] Medication Refill Social History Tobacco Use [...] on file Legal Sex Male 3:42 PM VIBRATION TECHNICIAN Gender Identity Not on file Sexual Orientation Not on file documented as of this encounter Miscellaneous Notes * Telephone Encounter - Maia Garza RMA - 07/28/2023 12:14 PM CDT Refill request. Refill if appropriate. documented in this encounter Plan of Treatment Upcoming Encounters Date Type Department Care Team (Late st Contact Info) Description 02/02/2025 11:00 AM VIBRATION TECHNICIAN Lab [facility] [address] [phone] Lab, [facility] 02/02/2025 11:15 AM VIBRATION TECHNICIAN Office Visit [facility] [address] [phone] Kev Moser MD [address] [place] [phone] 02/02/2025 11:30 AM VIBRATION TECHNICIAN Clinical Support [facility] [address] [phone] Nurse, [facility] documented as of this encounter Visit Diagnoses Not on filedocumented in this encounter Additional Health Concerns Assessment Noted Time PHQ-9 Depression Total Score: 0 11/25/19 21 11:34 AM CDT documented as of this encounter Care Teams General Scrap Worker Relationship Specialty Start Date End Date Scott Oneill MD PCP - General Internal Medicine 04/29/17 Tavo Mishra MD [address] [place] [id number] Internal Medicine 04/29/17 Gilmer Barnard MD [address] [place] [address] [id number] Consulting Physician Internal Medicine 08/28/17 4 Kev Moser MD [address] [place] [address] Consulting Physician Oncology 02/09/20 documented as of this encounter
--- OUTSIDE RECORDS SUMMARY | 2025-01-25 14:14 | XMS_ITS | Clinical Summary ---
Author Organization [facility] Address [address] [place] [address] Phone Care Team Providers Care Energy Trading Analyst Name Role Phone Bia Oneill MD Primary Care Provider [phone] Allergies No known active allergies Medications apixaban [...] 2 Active ergocalciferol (VITAMIN D2) 1.25 MG (83698 UT) capsule Take 1 capsule by mouth [...] Comments Blood Pressure 128/60 02/27/2022 1:41 PM THERAPEUTIC MASSAGE TECHNICIAN Pulse 72 02/27/2022 1:41 PM THERAPEUTIC MASSAGE TECHNICIAN Temperature 36.7 C (98 F) 02/27/2022 1:41 PM THERAPEUTIC MASSAGE TECHNICIAN Respiratory Rate - - Oxygen Saturation - - Inhaled Oxygen Concentration - - Weight 96.2 kg (212 lb) 02/27/2022 1:41 PM THERAPEUTIC MASSAGE TECHNICIAN Height 165.1 cm (5' 5) 02/27/2022 1:41 PM THERAPEUTIC MASSAGE TECHNICIAN Body Mass Index 35.28 02/27/2022 1:41 PM THERAPEUTIC MASSAGE TECHNICIAN Plan of Treatment Health Maintenance Due Date Last Done Comments Pneumococcal PPSV23/PCV13 65 + Years / Low and Medium Risk (1 of 2 - PCV) 02/14/2004 COVID-19 Vaccine (2024-2 6 season) 2024 07/11/2020, 05/13/2020, 05/13/2020 Influenza Vaccine (#1) 2024 , 02/06/2020, 12/27/2019, Additional history exists Insurance MEDICARE [facility] MEDICARE SUPPLEMENT ANDRES NEUMANN [id number] Care Teams Energy Trading Analyst Relationship Specialty Start Date End Date Bia Oneill MD [address] [address] PCP - General Internal Medicine 07/16/18
--- OUTSIDE RECORDS SUMMARY | 2025-01-25 14:14 | XMS_ITS | Encounter Summary ---
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
--- OUTSIDE RECORDS SUMMARY | 2025-01-25 14:14 | XMS_ITS | Encounter Summary ---
Author Organization [facility] Address [address] [place] [address] Phone Care Team Providers Care Cultural Anthropology Professor Name Role Phone Scott Oneill MD Primary Care Provider Tavo Mishra MD Unavailable [phone] Gilmer Barnard MD Unavailable [phone] Kev Moser MD Unavailable [phone] Reason for Visit * Reason Comments Medication Refill Encounter Details Date Type Department Care Team (Late st Contact Info) Description 07/01/2023 Refill [facility] [place] [address] [place] [phone] Sindi Qiu, MANAGER TRAINEE, HARBOR ENGINEER [address] [place] [address] Medication Refill Social History Tobacco [...] file Legal Sex Male 3:42 PM ASSOCIATE ATTORNEY Gender Identity Not on file Sexual Orientation [...] st Contact Info) Description 02/02/2025 11:00 AM ASSOCIATE ATTORNEY Lab [facility] [address] [phone] Lab, [facility] 02/02/2025 11:15 AM ASSOCIATE ATTORNEY Office Visit [facility] [address] [phone] Kev Moser MD [address] [place] [phone] 02/02/2025 11:30 AM ASSOCIATE ATTORNEY Clinical Support [facility] [address] [phone] [facility], [facility] documented as of this encounter Visit Diagnoses Not on filedocumented in this encounter Additional Health Concerns Assessment Noted Time PHQ-9 Depression Total Score: 0 11/25/19 11:34 AM CDT documented as of this encounter Care Teams Cultural Anthropology Professor Relationship Specialty Start Date End Date Scott Oneill MD PCP - General Internal Medicine 04/29/17 Tavo Mishra MD [address] [place] [id number] Internal Medicine 04/29/17 Gilmer Barnard MD [address] [place] [id number] Consulting Physician Internal Medicine 08/28/17 4 Kev Moser MD [address] [place] [phone] Consulting Physician Oncology 02/09/20 documented as of this encounter
--- OUTSIDE RECORDS SUMMARY | 2025-01-25 14:14 | XMS_ITS | Clinical Summary ---
Author Organization [facility] Address [address] [place] [address] Care Team Providers Care Supply Chain Specialist Name Role Phone Cee Rios [facility] Primary Care Prov ider Allergies No [...] daily. 2 Active vitamin D2, ergocalciferol , 19975 UNITS capsule Take 1 capsule (50,000 Units [...] (01/30/2023): Added automatically from request for surgery [id number] Personal history of colonic polyps 01/30/2023 Overview (01/30/2023): Added automatically from request for surgery [id number] Positive colorectal cancer screening using Colog uard test 10/08/2021 Overview (10/08/2021): Added automatically from request for surgery [id number] Family History Medical History Relation Comments cancer,small [...] Comments Blood Pressure 128/53 06/02/2023 9:55 AM SOLID WASTE DIVISION SUPERVISOR Pulse 63 06/02/2023 9:33 AM SOLID WASTE DIVISION SUPERVISOR Temperature 36 C (96.8 F) 06/02/2023 9:26 AM SOLID WASTE DIVISION SUPERVISOR Respiratory Rate 20 06/02/2023 8:33 AM SOLID WASTE DIVISION SUPERVISOR Oxygen Saturation 97% 06/02/2023 10:00 AM SOLID WASTE DIVISION SUPERVISOR Inhaled Oxygen Concentration - - Weight 101.2 kg (223 lb) 05/23/2023 2:05 PM SOLID WASTE DIVISION SUPERVISOR Height 166.4 cm (5' 5.5) 05/23/2023 2:05 PM SOLID WASTE DIVISION SUPERVISOR Body Mass Index 36.54 05/23/2023 2:05 PM SOLID WASTE DIVISION SUPERVISOR Plan of Treatment Health Maintenance Due Date Last Done Comments Hepatitis C 02/14/1973 DTaP, Tdap and Td Vaccines (1 - Tdap) 1973 Zoster Vaccines (1 of 2) 02/14/2004 Annual Medicare Wellness Visit 2019 Pneumococcal Vaccine: 50+ Years (2 of 2 - PCV20 or PCV21) 02/09/2022 02/09/2021, 05/01/2017 PHQ-2 (Physician [place]) 03/31/2024 01/29/2023 COVID-19 Vaccine ( - season) 2024 02/09/2021, 07/11/2020, 05/13/2020 Influenza Adult (#1) 2024 12/29/2021, 02/21/2021, 05/13/2020, Additional history exists RSV Immunization or 60+ Years (1 - 1-dose 75+ series) 2029 Colorectal Cancer Screening Colonoscopy (10 Years) 06/01/2033 06/02/2023, 10/18/2021, 10/18/2021 Hepatitis A Vaccines Aged Out No long er eligible based on patient's age to complete this topic Meningococcal B Vaccine Aged Out No l [...] Recently Relevant to Health Maintenance Insurance MEDICARE [facility] Care Teams Supply Chain Specialist Relationship Specialty Start Date End Date Cee Rios FNP [address] [place] [address] PCP - General NURSE PRACTITIONER 12/10/22
--- OUTSIDE RECORDS SUMMARY | 2025-01-25 14:14 | XMS_ITS | Encounter Summary ---
Author Organization 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
--- OUTSIDE RECORDS SUMMARY | 2025-01-25 14:14 | XMS_ITS | Encounter Summary ---
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
--- OUTSIDE RECORDS SUMMARY | 2025-01-25 14:14 | XMS_ITS | Encounter Summary ---
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
== END 2025-01-25 12:33 | disposition home or self-care (01) ==
PROVIDERS: PCP Internal Medicine; Visit Provider Internal Medicine Nephrology
DX: N18.4 Chronic kidney disease, stage 4 (severe) (principal); M31.30 Wegener's granulomatosis without renal involvement; R30.0 Dysuria
CPT/HCPCS: 81003; 87086